=== PATIENT | female | born 1945 | race Caucasian/White ===

== ENCOUNTER 2022-07-30 17:13 | Emergency (ER) | payer MEDICARE, SELFPAY ==
[2022-07-30 17:28] VITALS: BP 110/66; PULSE 69; RESP 20; TEMP 36.9; BMI 23.4
--- NOTE | 2022-07-30 19:12 | CRLHL7_ITS ---
For Patients: As a result of the Century Cures Act, medical imaging exams and procedure reports are released immediately into your electronic medical record. You may view this report before your referring provider. If you have questions, please contact your health care provider. Indication: Injury of left ankle. Technique: Left ankle 3 views. Comparison: None. Findings: Bones: No acute fracture or aggressive osseous lesion. Alignment is normal. Tiny plantar and posterior calcaneal enthesophytes. Joint spaces: Unremarkable. Soft tissues: Scattered vascular calcifications. Impression: No evidence of an acute bony abnormality. Dictated by Ángel Rodriguez MD @ 07/30/2022 7:34:49 PM (Electronically Signed)
--- NOTE | 2022-07-30 19:12 | CRLHL7_ITS ---
For Patients: As a result of the Century Cures Act, medical imaging exams and procedure reports are released immediately into your electronic medical record. You may view this report before your referring provider. If you have questions, please contact your health care provider. Indication: Injury and pain. Technique: Left knee 3 views Comparison: None Findings: Bones: No acute fracture or aggressive osseous lesion. Alignment is normal. Joint spaces: Mild media and [id number] patellofemoral compartment degenerative changes. No joint effusion. Soft tissues: Scattered vascular calcifications. Impression: No evidence of an acute bony abnormality. Medial and patellofemoral compartment osteoarthritis. Dictated by Ángel Rodriguez MD @ 07/30/2022 7:36:36 PM (Electronically Signed)
--- NOTE | 2022-07-30 19:13 | ED_ITS ---
HPI - Extremity Injury (Lower) General Chief Complaint: Extremity Pain/Injury, Lower Stated Complaint: Injured Left ankle, can't walk on it Time Seen by Provider: 07/30/22 17:32 History of Present Illness HPI Narrative: This 76-year-old female comes in with an injury to her left lower extremity. She states that she was hurrying through a door with wood floors below. There was a threshold at the transition into the next room. She tripped over this and landed on her left knee. She complains of pain in her left knee and her left ankle. She did not have any other injury. She has had her left hip replaced. She is able to raise her left leg off of the bed. There is no obvious sign of deformity but there is some mild diffuse swelling in both of these joints. Related Data Previous Rx's Medication Instructions Recorded Crutches- Adult #1 ea 07/30/22 Allergies Allergy/AdvReac Type Severity Reaction Status Date / Time morphine Allergy Verified 07/30/22 17:27 nickel Allergy Verified 07/30/22 17:28 tramadol Allergy Verified 07/30/22 17:27 narcotics Allergy Uncoded 07/30/22 17:27 Review of Systems Status of ROS: Reports: 10 or more systems reviewed and unremarkable except as noted in History and below Narrative: Constitutional: No fevers, no weight gain or loss. Eyes: No discharge. No vision changes. HENT: No congestion, no sore throat, no ear pain. Cardiovascular: No chest pain, no palpitations. Respiratory: No shortness of breath, no wheezes, no cough. Gastrointestinal: No abdominal pain, no vomiting, no diarrhea. Genitourinary: No dysuria, no hematuria. Musculoskeletal: Left knee and ankle injury as described above. Skin: No rashes, no pruritis. Neurological: No dizziness, weakness, sensory change, speech change. Endo/Heme/Allergies: No bruising or bleeding. No polydipsia. Pysch: no suicidality, no anxiety, no insomnia. All other systems reviewed and are negative. PFSH PFS Social History Smoking Status: Never smoker Do you use any of these nicotine containing products: None Second hand tobacco smoke exposure: No How often do you have a drink containing alcohol: monthly or less How many standard drinks containing alcohol do you have on a typical day: 1 or 2 How often do you have six or more drinks on one occasion: Never AUDIT-C Alcohol total score: 1 Non-prescribed substance use: denies use service: No Exam Narrative: Exam Narrative: Constitutional: Well-developed, well-nourished, no acute distress. HEENT: Normocephalic, atraumatic. Neck: Normal range of motion. Nontender. Supple. Heart: Intact distal pulses. Lungs: No chest discomfort. No wheezes, rhonchi, or rales. Abdomen: Nontender. Back: Normal range of motion. Extremities: Diffuse swelling of the left knee which may be a mild effusion. There is no obvious deformity of the left knee or ankle joints. The left ankle has mild diffuse tenderness with no obvious swelling or deformity. Both joints are not showing any sign of instability. Skin: Intact. No rash. Warm. No erythema or pallor. Neurologic: No altered sensation. No weakness. Alert and oriented. Psychiatric: No suicidality. No anxiety or depression. No insomnia. Nursing notes and vitals signs are reviewed. Const: Vital Signs, click to edit/add: Vital Signs - 24 hr 07/30/22 17:28 Temperature 98.5 F Pulse Rate [Pulse Oximeter] 69 Respiratory Rate 20 Blood Pressure [Ri ght Upper Arm] 110/66 Oxygen Delivery Me thod Room Air Course Vital Signs Vital signs: Initial Vital Signs Temperature 98.5 F 07/30/22 17:28 Temperature Source Temporal Artery Scan 07/30/22 17:28 Pulse Rate 69 07/30/22 17:28 Pulse Rhythm 07/30/22 17:28 Respiratory Rate 20 07/30/22 17:28 Blood Pressure 110/66 07/30/22 17:28 Blood Pressure Mean 80 07/30/22 17:28 Blood Pressure Position Sitting 07/30/22 17:28 Oxygen Delivery Method 07/30/22 17:28 Vital Signs Temperature 98.5 F 07/30/22 17:28 Pulse Rate 69 07/30/22 17:28 Respiratory Rate 20 07/30/22 17:28 Blood Pressure 110/66 07/30/22 17:28 Oxygen Delivery Method 07/30/22 17:28 Temperature 98.5 F 07/30/22 17:28 Pulse Rate 69 07/30/22 17:28 Respiratory Rate 20 07/30/22 17:28 Blood Pressure 110/66 07/30/22 17:28 Oxygen Delivery Method 07/30/22 17:28 MDM - Extremity Injury (Lower) MDM Narrative Medical decision making narrative: This patient comes in for evaluation of an injury to her left knee and ankle as described above. X-ray images of both of these joints show no acute findings of fracture or dislocation. She does have swelling and each of these joints that is rather mild. She is able to raise her leg off of the bed. She did receive a pair of crutches to assist in increasing use of her left leg as tolerated. She also received a prescription for Toradol. Imaging Data XR L Ankle: Radiologist's impression: No evidence of an acute bony abnormality. XR L Knee: Radiologist's impression: No evidence of an acute bony abnormality. Medial and patellofemoral compartment osteoarthritis. Discharge Plan Discharge Clinical Impression: Ankle sprain and strain, Contusion of knee, left Patient Disposition: Home, Self-Care Condition: Stable Additional Instructions: Use crutches and take medication as needed and directed. Increase activity as tolerated. Follow up with MD or return if worsening. Prescriptions: New (DME) Crutches- Adult Misc See Rx Instructions .ROUTE .MEDSULY Qty: 1 0RF Rx Instructions: As directed Follow Up/Referrals: Provider,Not a Local [Primary Care Provider] - Stand Alone Forms: Eyelation Info Instructions
--- OUTSIDE RECORDS SUMMARY | 2022-07-30 19:21 | XMS_ITS | Encounter Summary ---
:1945 Author Organization [facility] Address [address] [place] [address]. [place] [address] Care Team Providers Name Role Phone Carlota Landeros MD Unavailable Michelle Montana RN Unavailable Anh Costa DIRECTOR GLOBAL SALES KINDERGARTEN TEACHER ASSISTANT Unavailable Unavailable Martinez Galicia MD Unavailable Sabino Romano DPM Unavailable Mehreen Johnston MD PhD Unavailable [phone] LogMargot sadler MD Unavailable Margot Branham MD Unavailable Margot Branham MD Primary Care Provider Alonso Tejeda MD Unavailable Reason for Visit Reason Onset Date Comments Pain 07/16/2022 L breast pain Encounter Details Date Type Department Care Team Description 07/16/2022 Telephone [facility] Margot Branham MD Pain (L breast pain) Internal Medicine [address] [place], [place] 4th [address] [address] [place], [place] [phone] (Wo rk) [id number] [phone] Social History Tobacco Use Types Packs/Day Years Used Date Smoking Tobacco: Never Smokeless Tobacco: Never Alcohol Use Standard Drinks/Week Comments Yes 0 (1 standard drink = 0.6 oz pure alcoho l) wine few times/wk Sex Assigned at Date Recorded Female 12/20/2018 4:10 PM CDT COVID-19 Exposure Response Date Recorded In the last 10 days, have you been in contact Unable to asse ss 07/15/2022 4:34 PM CDT with someone who was confirmed or suspected to have Coronavirus/COVID-19? documented as of this encounter Miscellaneous Notes Telephone Encounter - Lisa José RN - 07/16/2022 4:06 PM CDT RN left voice message letting patient know that Dr. Branham is out the clinic this week and next, but that Dr. Tejeda has an opening tomorrow 07/17/22 @ 2 PM and she can call back to make that appt. Patient has seen Dr. Tejeda in the past. OK to use the spot tomorrow for this patient's appt for left breast pain if/when she calls back. Lisa José RN on 07/16/2022 at 4:09 PM Telephone Encounter - Latricia Low - 07/16/2022 2:47 PM CDT [facility] [place] [facility] Phone Message May a detailed message be left on voicemail: yes Reason for Call: Patient is calling to let Dr Manriquez know that she is experiencing L breast pain. Please call to discuss further. Patient doesn't want to see anyone other than Dr Manriquez. Action Taken: Message routed to: [facility] Travel Screening: Not Applicable documented in this encounter Plan of Treatment Upcoming Encounters Date Type Specialty Care Team Description 09/10/2022 Office Visit Internal Medicine Margot Branham MD [address] [place] [address] [phone] (Wo rk) documented as of this encounter Visit Diagnoses Not on filedocumented in this encounter Additional Health Concerns Assessment Noted Time PHQ-9 Depression Total Score: 0 11/22/2019 10:49 AM CS T documented as of this encounter Care Teams Central Sterile Supply Technician Relationship Specialty Start Date End Date Margot Branham MD PCP - General Internal Medicine 10/28/[address] [place] [address] [phone] Carlota Landeros MD MD Urology 04/10/[address] [place], [place] [address] Michelle Montana, MODESTA Registered Nurse Urology 05/07/17 Anh Costa APRN KINDERGARTEN TEACHER ASSISTANT Nurse Practitioner Nurse Practitioner 10/07 Martinez Galicia MD MD Ophthalmology 04/18/[address] [place] [address] [phone] Sabino Romano DPM MD Podiatry 08/11/[address] [phone] Mehreen Johnston MD PhD MD Family Practice 11/15/[address] [place] [address] [phone] Margot Branham MD MD Internal Medicine 04/17/[address] [place] [address] [phone] Margot Branham MD Assigned PCP 09/15/[address] [place] [address] [phone] Alonso Tejeda MD MD Internal Medicine 06/19/[address] [place] [phone] documented as of this encounter
--- OUTSIDE RECORDS SUMMARY | 2022-07-30 19:21 | XMS_ITS | Encounter Summary ---
:1945 Author Organization [facility] Address [address] [place] [address]. [place] [address] Care Team Providers Name Role Phone Carlota Landeros MD Unavailable Michelle Montana RN Unavailable Anh Costa ROENTGENOLOGY TEACHER GASOLINE ENGINE ASSEMBLER Unavailable Unavailable Martinez Galicia MD Unavailable Sabino Romano DPM Unavailable Mehreen Johnston MD PhD Unavailable [phone] LogMargot sadler MD Unavailable Margot Branham MD Unavailable Margot Branham MD Primary Care Provider Encounter Details Date Type Department Care Team Description 01/06/2022 Travel Social History Tobacco Use Types Packs/Day Years Used Date Smoking Tobacco: Never Smokeless Tobacco: Never Alcohol Use Standard Drinks/Week Comments Yes 0 (1 standard drink = 0.6 oz pure alcoho l) wine few times/wk Sex Assigned at Date Recorded Female 12/20/2018 4:10 PM CDT COVID-19 Exposure Response Date Recorded In the last month, have you been in contact with No / Unsure 01/06/2022 3:51 PM CDT someone who was confirmed or suspected to have Coronavirus / COVID-19? documented as of this encounter Plan of Treatment Upcoming Encounters Date Type Specialty Care Team Description 09/10/2022 Office Visit Internal Medicine LogeaMargot man MD [address] [place] [phone] (Wo rk) documented as of this encounter Visit Diagnoses Not on filedocumented in this encounter Additional Health Concerns Assessment Noted Time PHQ-9 Depression Total Score: 0 11/22/2019 10:49 AM CS T documented as of this encounter Care Teams Straightening Roll Operator Relationship Specialty Start Date End Date Margot Branham MD PCP - General Internal Medicine 10/28/[address] [place] [phone] Carolta Landeros MD MD Urology 04/10/[id number] [place] [address] Michelle Montana, RN Registered Nurse Urology 05/07/17 Anh Costa APRN GASOLINE ENGINE ASSEMBLER Nurse Practitioner Nurse Practitioner 10/07 Martinez Galicia MD MD Ophthalmology 04/18/18 [address] [place] [address] Sabino Romano DPM MD Podiatry 08/11/[address] [phone] Mehreen Johnston MD PhD MD Family Practice 11/15/[address] [place] [phone] Margot Branham MD MD Internal Medicine 04/17/[address] [place] [phone] Margot Branham MD Assigned PCP 09/15/[address] [place] [phone] documented as of this encounter
--- OUTSIDE RECORDS SUMMARY | 2022-07-30 19:21 | XMS_ITS | Encounter Summary ---
:1945 Author Organization [facility] Address [address] [place] [address]. [place] [address] Care Team Providers Name Role Phone Carlota Landeros MD Unavailable Michelle Montana RN Unavailable Anh Costa COMPUTER SYSTEM SPECIALIST WAREHOUSE GUARD Unavailable Unavailable Martinez Galicia MD Unavailable Sabino Romano DPM Unavailable Mehreen Johnston MD PhD Unavailable [phone] Margot Branham MD Unavailable Margot Branham MD Unavailable Margot Branham MD Primary Care Provider Encounter Details Date Type Department Care Team Description 04/20/2022 Travel Social History Tobacco Use Types Packs/Day Years Used Date Smoking Tobacco: Never Smokeless Tobacco: Never Alcohol Use Standard Drinks/Week Comments Yes 0 (1 standard drink = 0.6 oz pure alcoho l) wine few times/wk Sex Assigned at Date Recorded Female 12/20/2018 4:10 PM CDT COVID-19 Exposure Response Date Recorded In the last 10 days, have you been in contact with No / Unsu re 04/20/2022 10:52 AM CDT someone who was confirmed or suspected to have Coronavirus/COVID-19? documented as of this encounter Plan of Treatment Upcoming Encounters Date Type Specialty Care Team Description 09/10/2022 Office Visit Internal Medicine LogeaMargot man MD [address] [place] [phone] (Wo rk) documented as of this encounter Visit Diagnoses Not on filedocumented in this encounter Additional Health Concerns Assessment Noted Time PHQ-9 Depression Total Score: 0 11/22/2019 10:49 AM CS T documented as of this encounter Care Teams End Touching Machine Operator Relationship Specialty Start Date End Date Margot Branham MD PCP - General Internal Medicine 10/28/[address] [place] [phone] Carlota Landeros MD MD Urology 04/10/[address] [place] [address] Michelle Montana, RN Registered Nurse Urology 05/07/17 Anh Costa APRN WAREHOUSE GUARD Nurse Practitioner Nurse Practitioner 10/07 Martinez Galicia MD MD Ophthalmology 04/18/18 [address] [place] [address] Sabino Romano DPM MD Podiatry 08/11/[address] [phone] Mehreen Johnston MD PhD MD Family Practice 11/15/[address] [place] [phone] Margot Branham MD MD Internal Medicine 04/17/[address] [place] [phone] Margot Branham MD Assigned PCP 09/15/[address] [place] [phone] documented as of this encounter
--- OUTSIDE RECORDS SUMMARY | 2022-07-30 19:21 | XMS_ITS | Encounter Summary ---
:1945 Author Organization [facility] Address [address] [place] [address]. [place] [address] Care Team Providers Name Role Phone Carlota Landeros MD Unavailable Michelle Montana RN Unavailable nAh Costa ALUMINUM POLISHER PURCHASING MANAGER Unavailable Unavailable Martinez Galicia MD Unavailable Sabino Romano DPM Unavailable Mehreen Johnston MD PhD Unavailable [phone] LogeaMargot man MD Unavailable LogeaMargot man MD Unavailable LogMargot sadler MD Primary Care Provider Reason for Visit Reason Comments Urgent Care Pt in clinic to have eval fo r dysuria and frequency. Dysuria Encounter Details Date Type Department Care Team Description 01/06/2022 Office Visit [facility] Fela Gomez, Dysuria (Primary Dx); Urgent Care Reed OLIVEROS Acute cystitis without hematuria [address] [facility] 110 [place] [address] [id number] Social History Tobacco Use Types Packs/Day Years [...] / COVID-19? documented as of this encounter Last Filed Vital Signs Vital Sign Reading Time Taken Comments Blood Pressure 118/72 01/06/2022 4:04 PM CDT Pulse 67 01/06/2022 4:04 PM CDT Temperature 36.8 ??C (98.2 ??F) 01/06/2022 4:04 PM CDT Respiratory Rate - - Oxygen Saturation 99% 01/06/2022 4:04 PM CDT Inhaled Oxygen Concentration - - Weight 65.8 kg (145 lb) 01/06/2022 4:04 PM CDT Height 168.9 cm (5' 6.5) 01/06/2022 4:04 PM CDT Body Mass Index 23.05 01/06/2022 4:04 PM CDT documented in this encounter Progress Notes Fela Gomez MD - 01/06/2022 3:55 PM CDT Chief Complaint Patient presents with ??? Urgent Care Pt in clinic to have eval for dysuria and frequency. ??? Dysuria Initial differential diagnosis included but was not restricted to Differential Diagnosis: UTI: UTI, Dysuria, Pyelonephritis, Urethritis and Vaginitis Medical Decision Making: ASSESMENT AND PLAN Yamileth was seen today for urgent care and dysuria. Diagnoses and all orders for this visit: Dysuria - UA macro with reflex to Microscopic and Culture - Clinc Collect - Urine Microscopic Exam - Urine Culture Acute cystitis without hematuria - cephALEXin (KEFLEX) 500 MG capsule; Take 1 capsule (500 mg) by mouth 2 times daily for 7 days Push more Fluids Routine discharge counseling was given to the patient and the patient understands that worsening, changing or persistent symptoms should prompt an immediate call or follow up with their primary physician or the emergency department. The importance of appropriate follow up was also discussed with the patient. I have reviewed the nursing notes. Review of the result(s) of each unique test - Results for orders placed or performed in visit on 01/06/22 UA macro with reflex to Microscopic and Culture - Clinc Collect Status: Abnormal Specimen: Urine, Clean Catch Result Value Ref Range Color Urine Yellow Colorless, Straw, Light Yellow, Yellow Appearance Urine Clear Clear Glucose Urine Negative Negative mg/dL Bilirubin Urine Negative Negative Ketones Urine Negative Negative mg/dL Specific Allen Urine 1.025 1.003 - 1.035 Blood Urine Negative Negative pH Urine 5.5 5.0 - 7.0 Protein Albumin Urine Negative Negative mg/dL Urobilinogen Urine 0.2 0.2, 1.0 E.U./dL Nitrite Urine Positive (A) Negative Leukocyte Esterase Urine Negative Negative Urine Microscopic Exam Status: Abnormal Result Value Ref Range Bacteria Urine Few (A) None Seen /HPF RBC Urine 0-2 0-2 /HPF /HPF WBC Urine 0-5 0-5 /HPF /HPF Squamous Epithelials Urine Few (A) None Seen /LPF X-Ray was not done. Time spent on the date of the encounter doing chart review, review of test results, interpretation of tests, patient visit and documentation see orders in Epic Pt verbalized and agreed with the plan and is aware of the worsening symptoms for which would need to follow up . Pt was stable during time of discharge from the clinic SUBJECTIVE Yamileth Ramona Sheikh is a 76 year old female presenting with a chief complaint of Chief Complaint Patient presents with ??? Urgent Care Pt in clinic to have eval for dysuria and frequency. ??? Dysuria UTI Onset of symptoms was 2day(s). Course of illness is worsening Severity moderate Current and associated symptoms dysuria and frequency Treatment and measures tried Uristat (Pyridium) Predisposing factors include none Patient denies rigors, flank pain, temperature > 101 degrees F. and vomiting Past Medical History: Diagnosis Date ??? Benign head tremor many years ??? Deviated nasal septum Dr [facility] ??? Elevated brain natriuretic peptide (BNP) level 2009 296 ??? Elevated glucose 06/23/2016 [facility] ??? Fibroid uterus ??? H/O: varicose veins ??? Hyperlipidemia ASCVD risk 8.1%, declines statin ??? Hypertension ??? Osteoarthritis bilateral hip and knees ??? Osteopenia ??? PONV (postoperative nausea and vomiting) ??? 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 Urinary problem 2010 has a bladder implant, interstim ??? Vitamin D deficiency Current Outpatient Medications Medication Sig Dispense Refill ??? alendronate (FOSAMAX) 70 MG tablet Take 1 tablet (70 mg) by mouth every 7 days 12 tablet 3 ??? amoxicillin (AMOXIL) 500 MG capsule Take 2 capsules by mouth as needed 1 hour before dental procedures ??? calcium citrate (CITRACAL) 950 (200 Ca) MG tablet Take 1 tablet by mouth 2 times daily ??? cephALEXin (KEFLEX) 500 MG capsule Take 1 capsule (500 mg) by mouth 2 times daily for 7 days 14 capsule 0 ??? cholecalciferol (VITAMIN D3) 1000 UNIT tablet Take 2 tablets by mouth daily. ??? Coenzyme Q10 (COQ-10) 100 MG CAPS Take 100 mg by mouth daily ??? estradiol (ESTRACE) 0.1 MG/GM vaginal cream APPLY A SMALL AMOUNT EXTERNALLY TO VULVA TWO TIMES WEEKLY. 42.5 g 0 ??? estradiol (ESTRING) [address] 1 RING VAGINALLY EVERY 3 MONTHS. 1 each 3 ??? glucosamine-chondroitin 500-400 MG CAPS per capsule Take 1 capsule by mouth daily ??? hydrocortisone, Perianal, (PROCTO-MED HC) 2.5 % cream PLACE RECTALLY 2 TIMES DAILY DIRECTED 30 g 11 ??? irbesartan (AVAPRO) 150 MG tablet Take 1 tablet (150 mg) by mouth daily 90 tablet 3 ??? LYSINE PO Take 1 tablet by mouth daily ??? magnesium 100 MG CAPS Take 150 mg by mouth ??? nystatin (MYCOSTATIN) 745924 UNIT/GM external cream Apply topically 2 times daily ??? omega 3 1000 MG CAPS Take 1,200 mg by mouth ??? OTHER MEDICAL SUPPLIES ROCÍO stockings knee length USE DIRECTED . ??? polyethylene glycol (MIRALAX) 17 g packet Take 1 packet by mouth daily ??? rosuvastatin (CRESTOR) 5 MG tablet Take 1 tablet (5 mg) by mouth daily 90 tablet 3 ??? valACYclovir (VALTREX) 1000 mg tablet Take 1 tablet (1,000 mg) by mouth 2 times daily For one day at start of outbreak 10 tablet 1 Social History Tobacco Use ??? Smoking status: Never Smoker ??? Smokeless tobacco: Never Used Substance Use Topics ??? Alcohol use: Yes Comment: wine few times/wk Family History Problem Relation Age of Onset ??? Cancer - colorectal Mother colon polyps, age 93 ??? Hypertension Mother ??? Colon Polyps Mother ??? Colon Cancer Mother ??? Cardiovascular Father CHF age 79, hx of PE and HTN ??? Hypertension Father ??? Colon Polyps Father ??? Other - See Comments Brother MVA ??? Aneurysm Sister 40 brain ??? No Known Problems Sister ??? Parkinsonism Sister Hx TBI, MVA ??? Glaucoma Sister 55 Brought on by eye trauma. ??? Cancer Sister uterine cancer ??? Other Cancer Sister ??? Cancer Maternal Grandmother 84 of pancreatic cancer ??? Hypertension Maternal Grandmother ??? Myocardial Infarction Maternal Grandfather 82 of [place] ??? Hypertension Maternal Grandfather ??? Cardiovascular Paternal Grandmother age 65 of heart problems ??? Hypertension Paternal Grandmother ??? Pneumonia Paternal Grandfather age 70 after flu ??? No Known Problems Son ??? Colon Cancer Cousin ??? Colon Cancer Paternal Uncle ??? Colon Cancer Paternal Aunt ??? Colon Cancer Maternal Great-Grandfather ??? Macular Degeneration No family hx of ROS: 10 point ROS of systems including Constitutional, Eyes, Respiratory, Cardiovascular, Gastroenterology,Integumentary, Muscularskeletal, Psychiatric ,neurological were all negative except for pertinent positives noted in my HPI OBJECTIVE: BP 118/72 Pulse 67 Temp 98.2 ??F (36.8 ??C) (Temporal) Ht 1.689 m (5' 6.5) Wt 65.8 kg (145 lb) SpO2 99% BMI 23.05 kg/m?? GENERAL APPEARANCE: healthy, alert and no distress EYES: EOMI, PERRL, conjunctiva clear mouth without ulcers, erythema or lesions , oral mucosa moist CV: regular rates and rhythm, normal S1 S2, no murmur noted ABDOMEN: soft, nontender, no HSM or masses and bowel sounds normal PSYCH: mentation appears normal Physical Exam (Note was completed, in part, with [email or web address] voice-recognition software. Documentation reviewed, but some grammatical, spelling, and word errors may remain.) Fela Gomez MD documented in this encounter Plan of Treatment Upcoming Encounters Date Type Specialty Care Team Description 09/10/2022 Office Visit Internal Medicine Logeais, MD Margot [address] [place] [address] [place], [place] [phone] (Wo rk) documented as of this encounter Procedures Procedure Name Priority Date/Time Associated Comments Diagnosis UA MACROSCOPIC WITH Routine 01/06/2022 4:05 PM Dysuria Re sults for this REFLEX TO MICRO AND CDT procedur e are in CULTURE the results section. URINE MICROSCOPIC Routine 01/06/2022 4:05 PM Dysuria Resu lts for this EXAM CDT procedure are i n the results section. URINE CULTURE Routine 01/06/2022 4:05 PM Dysuria Results for this CDT procedure are i n the results section. documented in this encounter Results Urine Culture (01/06/2022 4:05 PM CDT) P athologist Signature Culture No Growth JAKUB 01/08/2022 [facility] 11:25 AM CDT LABORATORY Specimen Anatomical Collection Method Collection Time Receive d Time (Source) Location / / Volume Laterality Urine URINE SPECIMEN Non-blood 01/06/2022 4:05 PM 022 4:19 OBTAINED BY CLEAN Collection / CDT PM CDT CATCH PROCEDURE / Unknown Unknown Mae Wilkinson NP LAB - MICRO GENERAL ORDERABL ES Performing Organization Address City/State/ZIP Code Phon e Number [facility] LABORATORY [facility] [place] [address] Diag. Lab [address] [facility], Room D297 (ABNORMAL) Urine Microscopic Exam (01/06/2022 4:05 PM CDT) Patholo gist Method Time Signature Bacteria Urine Few (A) None Seen JAKUB 01/06/2022 [facility] /HPF 4:26 PM CDT RBC Urine 0-2 0-2 /HPF JAKUB 01/06/2022 [facility] /HPF 4:26 PM CDT WBC Urine 0-5 0-5 /HPF JAKUB 01/06/2022 [facility] /HPF 4:26 PM CDT Squamous Few (A) None Seen JAKUB 01/06/2022 [facility] Epithelials /LPF 4:26 PM CDT Urine Specimen Anatomical Collection Method Collection Time Receive d Time (Source) Location / / Volume Laterality Urine URINE SPECIMEN Non-blood 01/06/2022 4:05 PM 022 4:13 OBTAINED BY CLEAN Collection / CDT PM CDT CATCH PROCEDURE / Unknown Unknown Mae Wilkinson NP LAB - URINE ORDERABLES Performing Organization Address City/State/ZIP Code Phon [place] [address] [phone] [facility], 1st floor of clinic) [place] [address], [facility] [facility]no [facility] number, 1st floor of clinic) (ABNORMAL) UA macro with reflex to Microscopic and Culture - Clinc Collect (01/06/2022 4:05 PM CDT) [facility] Method Time Signature Color Urine Yellow Colorless, 01/06/2022 [facility] Straw, 4:19 PM CDT Light Yellow, Yellow Appearance Urine Clear Clear 01/06/2022 [facility] Y 4:19 PM CDT Glucose Urine Negative Negative 01/06/2022 [facility] mg/dL 4:19 PM CDT Bilirubin Urine Negative Negative 01/06/2022 [facility] 4:19 PM CDT Ketones Urine Negative Negative 01/06/2022 [facility] mg/dL 4:19 PM CDT Specific Allen 1.025 1.003 - 01/06/2022 [facility] Y Urine 1.035 4:19 PM CDT Blood Urine Negative Negative 01/06/2022 [facility] 4:19 PM CDT pH Urine 5.5 5.0 - 7.0 01/06/2022 [facility] 4:19 PM CDT Protein Albumin Negative Negative 01/06/2022 [facility] Urine mg/dL 4:19 PM CDT Urobilinogen 0.2 0.2, 1.0 01/06/2022 [facility] Urine E.U./dL 4:19 PM CDT Nitrite Urine Positive Negative 01/06/2022 [facility] (A) 4:19 PM CDT Leukocyte Negative Negative 01/06/2022 [facility] Esterase Urine 4:19 PM CDT Specimen Anatomical Collection Method Collection Time Receive d Time (Source) Location / / Volume Laterality Urine URINE SPECIMEN Non-blood 01/06/2022 4:05 PM 022 4:13 OBTAINED BY CLEAN Collection / CDT PM CDT CATCH PROCEDURE / Unknown Unknown Mae Wilkinson NP LAB - URINE ORDERABLES Performing Organization Address City/State/ZIP Code [place] [phone] [facility] [address] [place] (no room number, 1st floor of clinic) [place] [address], [facility] Lab [address] [place] [facility] (no room number, 1st floor of clinic) documented in this encounter Visit Diagnoses Diagnosis Dysuria - Primary Acute cystitis without hematuria Acute cystitis documented in this encounter Additional Health Concerns Assessment Noted Time PHQ-9 Depression Total Score: 0 11/22/2019 10:49 AM CS T documented as of this encounter Care Teams Broker Associate Relationship Specialty Start Date End Date Margot Branham MD PCP - General Internal Medicine 10/28/[address] [place] [address] [phone] Carlota Landeros MD MD Urology 04/10/[address] [place], [place] [address] Michelle Montana, MODESTA Registered Nurse Urology 05/07/17 Anh Costa APRN PURCHASING MANAGER Nurse Practitioner Nurse Practitioner 10/07 Martinez Galicia MD MD Ophthalmology 04/18/18 [address] [place], [place] 801385 Sabino Romano DPM MD Podiatry 08/11/[address] [place] [phone] Mehreen Johnston MD PhD MD Family Practice 11/15/[address] [place] [address] [phone] Margot Branham MD MD Internal Medicine 04/17/[address] [place] [address] [phone] Margot Branham MD Assigned PCP 09/15/[address] [place] [address] [phone] documented as of this encounter
--- OUTSIDE RECORDS SUMMARY | 2022-07-30 19:21 | XMS_ITS | Encounter Summary ---
:1945 Author Organization [facility] Address [address] [place] [address]. [place] [address] Care Team Providers Name Role Phone Carlota Landeros MD Unavailable Michelle Montana RN Unavailable Anh Costa ECOTHERAPIST COMPUTER LABORATORY TECHNICIAN Unavailable Unavailable Martinez Galicia MD Unavailable Sabino Romano DPM Unavailable Mehreen Johnston MD PhD Unavailable [phone] LogeaMargot man MD Unavailable LogMargot sadler MD Unavailable LogMargot sadler MD Primary Care Provider Encounter Details Date Type Department Care Team Description 10/30/2021 Lab [facility] Lab Hyperl ipidemia LDL goal <100 [place] [phone] Social History Tobacco Use Types Packs/Day Years Used Date Smoking Tobacco: Never Smokeless Tobacco: Never Alcohol Use Standard Drinks/Week Comments Yes 0 (1 standard drink = 0.6 oz pure alcoho l) wine few times/wk Sex Assigned at Date Recorded Female 12/20/2018 4:10 PM CDT COVID-19 Exposure Response Date Recorded In the last month, have you been in contact with No / Unsure 10/30/2021 8:37 AM COLLET MAKER someone who was confirmed or suspected to have Coronavirus / COVID-19? documented as of this encounter Plan of Treatment Upcoming Encounters Date Type Specialty Care Team Description 09/10/2022 Office Visit Internal Medicine LogMargot sadler MD [address] [address] (Wo rk) documented as of this encounter Procedures Procedure Name Priority Date/Time Associated Diagnosis Comme nts LIPID REFLEX TO Routine 10/30/2021 10:04 Hyperlipidemia LDL go al Results for this DIRECT LDL PANEL AM COLLET MAKER <100 procedure a re in the results section. documented in this encounter Results Lipid panel reflex to direct LDL Fasting (10/30/2021 10:04 AM COLLET MAKER) [facility] gist Method Time Signature Cholesterol 159 <200 mg/dL 10/30/2021 [facility] 10:30 AM COLLET MAKER LABORATORY - CORE LAB Triglycerides 89 <150 mg/dL 10/30/2021 [facility] 10:30 AM COLLET MAKER LABORATORY - CORE LAB Direct Measure HDL 83 >=50 mg/dL 10/30/2021 [facility] 10:30 AM COLLET MAKER LABORATORY - CORE LAB LDL Cholesterol 58 <=100 10/30/2021 [facility] Calculated mg/dL 10:30 AM COLLET MAKER LABORATORY - CORE LAB Non HDL 76 <130 mg/dL 10/30/2021 [facility] Cholesterol 10:30 AM COLLET MAKER LABORATORY - CORE LAB Patient Fasting > Yes 10/30/2021 [facility] 8hrs? 10:30 AM COLLET MAKER LABORATORY - CORE LAB Specimen Anatomical Collection Method / Collection Time Recei yenny Time (Source) Location / Volume Laterality Blood STRUCTURE OF LEFT Venipuncture / 10/30/2021 10:04 10/05 UPPER LIMB / Unknown AM COLLET MAKER 10:04 AM COLLET MAKER Unknown Narrative [facility] LABORATORY - CORE LAB - 10/30/2021 10:30 AM COLLET MAKER Cholesterol Desirable: ??<200 mg/dL Triglycerides Normal: ??Less than 150 mg/dL Borderline High: ??150-199 mg/dL High: ??200-499 mg/dL Very High: ??Greater than or equal to 50 0 mg/dL Direct Measure HDL Female: ??Greater than or equal to 50 mg /dL Male: ??Greater than or equal to 40 mg/d L LDL Cholesterol Desirable: ??<100mg/dL Above Desirable: ??100-129 mg/dL Borderline High: ??130-159 mg/dL High: ??160-189 mg/dL Very High: ??>= 190 mg/dL Non HDL Cholesterol Desirable: ??130 mg/dL Above Desirable: ??130-159 mg/dL Borderline High: ??160-189 mg/dL High: ??190-219 mg/dL Very High: ??Greater than or equal to 22 0 mg/dL Margot Branham MD LAB - BLOOD ORDERABLES Performing Organization Address City/State/ZIP Code Phon e Number [facility] LABORATORY - CORE LAB [facility] [place] [address] Lab Core Lab [facility] LABORATORY - CORE LAB [place], [place] [address] Clinics [facility] [place] - [address] Floor Lab Core Lab documented in this encounter Visit Diagnoses Diagnosis Hyperlipidemia LDL goal <100 Other and unspecified hyperlipidemia documented in this encounter Additional Health Concerns Assessment Noted Time PHQ-9 Depression Total Score: 0 11/22/2019 10:49 AM CS T documented as of this encounter Care Teams Sheriffs Relationship Specialty Start Date End Date Margot Branham MD PCP - General Internal Medicine 10/28/[address] [place] [address] [phone] Carlota Landeros MD MD Urology 04/10/[address] [place], [place] [address] Michelle Montana RN Registered Nurse Urology 05/07/17 Anh Costa APRN COMPUTER LABORATORY TECHNICIAN Nurse Practitioner Nurse Practitioner 10/07 Martinez Galicia MD MD Ophthalmology 04/18/18 420 [place], [place] [phone] Sabino Romano DPM MD Podiatry 08/11/[address] [phone] Mehreen Johnston MD PhD MD Family Practice 11/15/[address] [place] [address] [phone] Margot Branham MD MD Internal Medicine 04/17/[address] [place] [address] [phone] Margot Branham MD Assigned PCP 09/15/[address] [place] [address] [phone] documented as of this encounter
--- OUTSIDE RECORDS SUMMARY | 2022-07-30 19:21 | XMS_ITS | Encounter Summary ---
:1945 Author Organization [facility] Address [address] [place] [address]. [place] [address] Care Team Providers Name Role Phone Carlota Landeros MD Unavailable Michelle Montana RN Unavailable Anh Costa FOOD ADVISER CARDIAC CARE NURSE Unavailable Unavailable Martinez Galicia MD Unavailable Sabino Romano DPM Unavailable Mehreen Johnston MD PhD Unavailable [phone] LogeaMargot man MD Unavailable LogMargot sadler MD Unavailable LogMargot sadler MD Primary Care Provider Alonso Tejeda MD Unavailable Encounter Details Date Type Department Care Team Description 06/19/2022 Telephone [facility] Margot Branham MD Internal Medicine [address] [place] [address] [place] [address] 4th Floor [place], [place] [phone] Social History Tobacco Use Types Packs/Day [...] in contact with No / Unsu re 06/19/2022 8:44 AM CDT someone who was confirmed or suspected to have Coronavirus/COVID-19? documented as of this encounter Plan of Treatment Upcoming Encounters Date Type Specialty Care Team Description 09/10/2022 Office Visit Internal Medicine Margot Branham MD [address] [place] [address] [phone] (Wo rk) documented as of this encounter Visit Diagnoses Not on filedocumented in this encounter Additional Health Concerns Assessment Noted Time PHQ-9 Depression Total Score: 0 11/22/2019 10:49 AM CS T documented as of this encounter Care Teams Target Developer Relationship Specialty Start Date End Date Margot Branham MD PCP - General Internal Medicine 10/28/[address] [place] [address] [phone] Carlota Landeros MD MD Urology 04/10/[address] [place], [place] [phone] Michelle Montana, MODESTA Registered Nurse Urology 05/07/17 Anh Costa APRN CARDIAC CARE NURSE Nurse Practitioner Nurse Practitioner 10/07 Martinez Galicia MD MD Ophthalmology 04/18/[address] [place] [address] [phone] Sabino Romano DPM MD Podiatry 08/11/18 [facility] [address] [phone] Mehreen Johnston MD PhD MD Family Practice 11/15/[address] [place] [address] [phone] Margot Branham MD MD Internal Medicine 04/17/[address] [place] [address] Margot Branham MD Assigned PCP 09/15/[address] [place] [address] [phone] Alonso Tejead MD MD Internal Medicine 06/19/[address] [place] [address] [phone] documented as of this encounter
--- OUTSIDE RECORDS SUMMARY | 2022-07-30 19:21 | XMS_ITS | Encounter Summary ---
:1945 Author Organization [facility] Address [address] [place] [address]. [place] [address] Care Team Providers Name Role Phone Carlota Landeros MD Unavailable Michelle Montana RN Unavailable Anh Costa INSURANCE CLAIM APPROVER NITROGLYCERIN NITRATOR OPERATOR BATCH Unavailable Unavailable Martinez Galicia MD Unavailable Sabino Romano DPM Unavailable Mehreen Johnston MD PhD Unavailable [phone] Margot Branham MD Unavailable Margot Branham MD Unavailable Margot Branham MD Primary Care Provider Encounter Details Date Type Department Care Team Description 04/02/2022 Travel Social History Tobacco Use Types Packs/Day [...] been in contact Unable to asse ss 04/02/2022 4:00 PM CDT with someone who was confirmed or suspected to have Coronavirus/COVID-19? documented as of this encounter Plan of Treatment Upcoming Encounters Date Type Specialty Care Team Description 09/10/2022 Office Visit Internal Medicine LogeaMargot man MD [address] [place] [phone] (Wo rk) documented as of this encounter Visit Diagnoses Not on filedocumented in this encounter Additional Health Concerns Assessment Noted Time PHQ-9 Depression Total Score: 0 11/22/2019 10:49 AM CS T documented as of this encounter Care Teams Warehouse Selector Relationship Specialty Start Date End Date Margot Branham MD PCP - General Internal Medicine 10/28/[address] [place] [phone] Carlota Landeros MD MD Urology 04/10/[address] [place] [address] Michelle Montana, RN Registered Nurse Urology 05/07/17 Anh Costa APRN NITROGLYCERIN NITRATOR OPERATOR BATCH Nurse Practitioner Nurse Practitioner 10/07 Martinez Galicia MD MD Ophthalmology 04/18/18 [address] [place] [address] Sabino Romano DPM MD Podiatry 08/11/[address] [phone] Mehreen Johnston MD PhD MD Family Practice 11/15/[address] [place] [address] Margot Branham MD MD Internal Medicine 04/17/[address] [place] [address] Margot Branham MD Assigned PCP 09/15/[address] [place] [phone] documented as of this encounter
--- OUTSIDE RECORDS SUMMARY | 2022-07-30 19:21 | XMS_ITS | Encounter Summary ---
:1945 Author Organization [facility] Address [address] [place] [address]. [place] [address] Care Team Providers Name Role Phone Carlota Acuña MD Unavailable Michelle Montana RN Unavailable Anh Costa ELECTRONIC [employer] OFFICER ELECTRONIC PUBLICATIONS SPECIALIST Unavailable Unavailable Martinez Galicia MD Unavailable Sabino Romano DPM Unavailable Mehreen Johnston MD PhD Unavailable [phone] Margot Branham MD Unavailable Margot Branham MD Unavailable Margot Branham MD Primary Care Provider Reason for Referral Diagnostic Imaging Mammo (Routine) - Pending Review Specialty Diagnoses / Procedures Referred By Contact Refer red To Contact Diagnoses Encounter for screening mammogram for breast cancer aMrgot Branham MD Procedures Mammogram, screening w billy (3D) [address] 72 5 Referral ID Status Reason Start Date Expiration Date Visits V isits Requested Authorized [id number] Pending 10/30/2021 10/30/2022 1 1 Review MAN Reason for Visit Reason Comments Physical Annual Visit Encounter Details Date Type Department Care Team Description 10/30/2021 Office Visit [facility], Margot, Encounte r for screening mammogram for breast cancer (Primary Dx); Clinic Internal Atrophic vaginitis; Medicine [place] [facility] Screen for colon cancer; 909 [facility] [address] [place] Seasonal allergies; [address]th Floor [place], [place] Chronic rhinitis; [place] [address] Vaginal dryness; [id number] Recurrent cold sores; Vitamin D deficiency; [phone] Essential hyper tension; (Fax) Hyperlipidemia LDL goal <100; External hemorr hoids; Need for pneumo coccal vaccination; Age-related ost eoporosis without current pathological fracture; Encounter for Jody gonzales annual wellness exam Social History Tobacco Use Types Packs/Day Years Used Date Smoking Tobacco: Never Smokeless Tobacco: Never Tobacco Cessation: Counseling Given: No Alcohol Use Standard Drinks/Week Comments Yes 0 (1 standard drink = 0.6 oz pure alcoho l) wine few times/wk Sex Assigned at Date Recorded Female 12/20/2018 4:10 PM CDT COVID-19 Exposure Response Date Recorded In the last month, have you been in contact with No / Unsure 10/30/2021 8:37 AM HOT MAN someone who was confirmed or suspected to have Coronavirus / COVID-19? documented as of this encounter Last Filed Vital Signs Vital Sign Reading Time Taken Comments Blood Pressure 121/68 10/30/2021 8:49 AM HOT MAN Pulse 64 10/30/2021 8:49 AM HOT MAN Temperature - - Respiratory Rate 16 10/30/2021 8:49 AM HOT MAN Oxygen Saturation 99% 10/30/2021 8:49 AM HOT MAN Inhaled Oxygen Concentration - - Weight 67.4 kg (148 lb 11.2 oz) 10/30/2021 8:49 AM HOT MAN Height 169.5 cm (5' 6.75) 10/30/2021 8:49 AM HOT MAN Body Mass Index 23.46 10/30/2021 8:49 AM HOT MAN documented in this encounter Patient Instructions Patient InstructionsTaran Mata - 10/30/2021 9:00 AM CST To schedule a mammogram, please call radiology scheduling at . Patient Education Personalized Prevention Plan You are due for the preventive services outlined below. Your care team is available to assist you inscheduling these services. If you have already completed any of these items, please share that information with your care team to update in your medical record. Health Maintenance Due Topic Date Due ??? Annual Wellness Visit 08/17/2020 ??? FALL RISK ASSESSMENT 05/29/2021 Preventive Health Recommendations See your health care provider every year to ?? Review health changes. ?? Discuss preventive care. ?? Review your medicines if your doctor has prescribed any. ?? You no longer need a yearly Pap test unless you've had an abnormal Pap test in the past 10 years.If you have vaginal symptoms, such as bleeding or discharge, be sure to talk with your provider about a Pap test. ?? Every 1 to 2 years, have a mammogram. If you are over 69, talk with your health care provider about whether or not you want to continue having screening mammograms. ?? Every 10 years, have a colonoscopy. Or, have a yearly FIT test (stool test). These exams will check for colon cancer. ?? Have a cholesterol test every 5 years, or more often if your doctor advises it. ?? Have a diabetes test (fasting glucose) every three years. If you are at risk for diabetes, you should have this test more often. ?? At age 65, have a bone density scan (DEXA) to check for osteoporosis (brittle bone disease). Shots: ?? Get a flu shot each year. ?? Get a tetanus shot every 10 years. ?? Talk to your doctor about your pneumonia vaccines. There are now two you should receive - Pneumovax (PPSV 23) and Prevnar (PCV 13). ?? Talk to your pharmacist about the shingles vaccine. ?? Talk to your doctor about the hepatitis B vaccine. Nutrition: ?? Eat at least 5 servings of fruits and vegetables each day. ?? Eat whole-grain bread, whole-wheat pasta and brown rice instead of white grains and rice. ?? Get adequate Calcium and Vitamin D. Lifestyle ?? Exercise at least 150 minutes a week (30 minutes a day, 5 days a week). This will help you control your weight and prevent disease. ?? Limit alcohol to one drink per day. ?? No smoking. ?? Wear sunscreen to prevent skin cancer. ?? See your dentist twice a year for an exam and cleaning. ?? See your eye doctor every 1 to 2 years to screen for conditions such as glaucoma, macular degeneration and cataracts. Personalized Prevention Plan You are due for the preventive services outlined below. Your care team is available to assist you inscheduling these services. If you have already completed any of these items, please share that information with your care team to update in your medical record. Health Maintenance Topic Date Due ??? MEDICARE ANNUAL WELLNESS VISIT 08/17/2020 ??? FALL RISK ASSESSMENT 05/29/2021 ??? MAMMO SCREENING 09/10/2022 ??? ADVANCE CARE PLANNING 08/17/2024 ??? COLORECTAL CANCER SCREENING 07/01/2025 ??? LIPID 09/02/2025 ??? DTAP/TDAP/TD IMMUNIZATION (4 - Td or Tdap) 06/30/2027 ??? DEXA 07/01/2035 ??? HEPATITIS C SCREENING Completed ??? PHQ-2 Completed ??? INFLUENZA VACCINE Completed ??? Pneumococcal Vaccine: 65+ Years Completed ??? ZOSTER IMMUNIZATION Completed ??? COVID-19 Vaccine Completed ??? IPV IMMUNIZATION Aged Out ??? MENINGITIS IMMUNIZATION Aged Out ??? HEPATITIS B IMMUNIZATION Aged Out MAN documented in this encounter Progress Notes Margot Branham MD - 10/30/2021 9:00 AM CST History of Present Illness: Ms. Sheikh is a 76 year old female who presents for Chief Complaint Patient presents with ??? Physical ??? Annual Visit PMH of ALEKS, lumbar radiculopathy, osteoporosis, angular chelitis, recent UTI, varicose veins with sclerotherapy 04/23, HTN, HLD. States hip is doing well but still having some upper back pain. She does follow at [facility]. Gets hyaluronic acid injections in knees. She has been seen for angular chelitis and saw Derm, was given nystatin. She continues to take alendronate for osteoporosis. Last dexa was in 06/23. Sees ophtho. No mental health concerns. Wears hearing aids. Got 3 covid vaccines. Routine Health Maintenence: Lung Ca Screening (>20 pk age 50-80): not indicated, not smoker Colonoscopy (45-75 yrs): Last 05/18 [place], normal, no specimens Dexa (>65W or 70M yrs): due 06/25 at [place] Mammogram (40-75 yrs): 06/22 here, otherwise at [place], due Pap (21-65 yrs): Lab Results Component Value Date PAP NIL 09/24/2010 PAP NIL 08/23/2009 Mood/affect:Normal Appearance:Normal Family member/caregiver input: n/a Mini Cog Scoring N/a, she has no concerns, memory is greater than kids, does lots of stimulating activities Review of external notes as documented above A detailed Review of Systems was performed, verified and is negative except as documented in the HPI. All health questionnaires were reviewed, verified and relevant information documented above. Past Medical History: Past Medical History: Diagnosis Date ??? Benign head tremor many years ??? Deviated nasal septum Dr Baer ENT ??? Elevated brain natriuretic peptide (BNP) level 2008 296 ??? Elevated glucose 06/23/2016 [facility] ??? Fibroid uterus ??? H/O: varicose veins ??? Hyperlipidemia ASCVD risk 8.1%, declines statin ??? Hypertension ??? Osteoarthritis bilateral hip and knees ??? Osteopenia ??? PONV (postoperative nausea and vomiting) ??? 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 Urinary problem 2010 has a bladder implant, interstim ??? Vitamin D deficiency Past Surgical History: Past Surgical History: Procedure Laterality Date ??? TOTAL HIP ARTHROPLASTY Left 09/11/2020 ??? BREAST BIOPSY, RT/LT Breast Biopsy RT/LT ??? C/SECTION, CLASSICAL 1978 , Classical ??? CATARACT IOL, RT/LT Left 07/25/2018 ??? CYSTOSCOPY, SLING TRANSVAGINAL N/A 03/26/2015 Procedure: CYSTOSCOPY, SLING TRANSVAGINAL; Surgeon: Carlota Acuña MD; Location: [facility] OR ??? HRW VEIN STRIPPER Left 1996 ??? HYSTEROSCOPY 06/24/2016 ??? IMPLANT STIMULATOR AND LEADS SACRAL NERVE (STAGE ONE AND TWO) 05/19/2011 Procedure:IMPLANT STIMULATOR AND LEADS SACRAL NERVE (STAGE ONE AND TWO); Surgeon:CARLOTA ACUÑA;Location:[facility] OR ??? MAMMOPLASTY REDUCTION 1989 ??? PHACOEMULSIFICATION WITH STANDARD INTRAOCULAR LENS IMPLANT Right 07/18/2018 Procedure: PHACOEMULSIFICATION WITH STANDARD INTRAOCULAR LENS IMPLANT; Right Eye Phacoemulsification with Intraocular Lens ; Surgeon: Martinez Galicia MD; [facility] ??? PHACOEMULSIFICATION WITH STANDARD INTRAOCULAR LENS IMPLANT Left 07/25/2018 Procedure: Left Eye Phacoemulsification with Intraocular Lens; Surgeon: Martinez Galicia MD; [facility] ??? REPLACE GENERATOR STIMULATOR (LOCATION) Left 04/27/2017 Procedure: REPLACE GENERATOR STIMULATOR (LOCATION); Replacement of Left Interstim Battery Latex Allergy; Surgeon: Carlota Acuña MD; [facility] ??? SHOULDER SURGERY Right 04/2019 ??? SURGICAL HISTORY OF - ? Nasal passages microwaved. Dr Baer ENT ??? uteroscopy 05/04/2018 ??? [facility] DELIVERY ONLY Description: Section; Recorded: 11/01/2012; ??? [facility] TOTAL HIP ARTHROPLASTY Right 2006 right ??? [facility] TOTAL HIP ARTHROPLASTY Description: Total Hip Replacement; Recorded: 11/01/2012; ??? [facility] COLONOSCOPY THRU STOMA, DIAGNOSTIC +FHx 2007 Active Meds: Current Outpatient Medications Medication ??? alendronate (FOSAMAX) 70 MG tablet ??? amoxicillin (AMOXIL) 500 MG capsule ??? calcium citrate (CITRACAL) 950 (200 Ca) MG tablet ??? cholecalciferol (VITAMIN D3) 1000 UNIT tablet ??? Coenzyme Q10 (COQ-10) 100 MG CAPS ??? estradiol (ESTRACE) 0.1 MG/GM vaginal cream ??? estradiol (ESTRING) 2 MG vaginal ring ??? glucosamine-chondroitin 500-400 MG CAPS per capsule ??? irbesartan (AVAPRO) 150 MG tablet ??? LYSINE PO ??? magnesium 100 MG CAPS ??? nystatin (MYCOSTATIN) 455180 UNIT/GM external cream ??? omega 3 1000 MG CAPS ??? OTHER MEDICAL SUPPLIES ??? polyethylene glycol (MIRALAX) 17 g packet ??? PROCTO-MED HC 2.5 % cream ??? rosuvastatin (CRESTOR) 5 MG tablet ??? triamcinolone (KENALOG) 0.1 % external ointment ??? valACYclovir (VALTREX) 1000 mg tablet No current facility-administered medications for this visit. Allergies: Codeine, Morphine, Oxycodone, Propofol, Perindopril, Tramadol, Latex, Latex, Nickel, No clinical screening - see comments, and Tape [adhesive tape] Family History: family history includes Aneurysm (age of onset: 40) in her sister; Cancer in her sister; Cancer (ageof onset: 84) in her maternal grandmother; Cancer - colorectal in her mother; Cardiovascular in her father and paternal grandmother; Colon Cancer in her cousin, maternal great-grandfather, mother, paternal aunt, and paternal uncle; Colon Polyps in her father and mother; Glaucoma (age of onset: 55) in her sister; Hypertension in her father, maternal grandfather, maternal grandmother, mother, and paternal grandmother; Myocardial Infarction (age of onset: 82) in her maternal grandfather; No Known Problems in her sister and son; Other - See Comments in her brother; Other Cancer in her sister; Parkinsonism in her sister; Pneumonia in her paternal grandfather. Social History: Social History Tobacco Use ??? Smoking status: Never Smoker ??? Smokeless tobacco: Never Used Substance Use Topics ??? Alcohol use: Yes Comment: wine few times/wk ??? Drug use: No Physical Exam: Vitals: BP 121/68 (BP Location: Right arm, Patient Position: Sitting, Cuff Size: Adult Regular) Pulse 64 Resp 16 Ht 1.695 m (5' 6.75) Wt 67.4 kg (148 lb 11.2 oz) SpO2 99% No BMI 23.46 kg/m?? Constitutional: Alert, oriented, pleasant, no acute distress Head: Normocephalic, atraumatic Eyes: Extra-ocular movements intact, pupils equally round and reactive bilaterally, no scleral icterus ENT: Oropharynx clear, moist mucus membranes, good dentition Neck: Supple, no lymphadenopathy Breasts: normal without suspicious masses, skin changes or axillary nodes Cardiovascular: Regular rate and rhythm, no murmurs, rubs or gallops, peripheral pulses full/symmetric Respiratory: Good air movement bilaterally, lungs clear, no wheezes/rales/rhonchi GI: Abdomen soft, bowel sounds present, nondistended, nontender, no organomegaly or masses, no rebound/guarding Musculoskeletal: No edema, normal muscle tone, normal gait Neurologic: Alert and oriented, cranial nerves 2-12 intact, grossly non-focal Skin: No rashes/lesions Psychiatric: normal mentation, affect and mood Diagnostics: Labs reviewed in [facility] Assessment and Plan: Yamileth was seen today for physical and annual visit. Diagnoses and all orders for this visit: Encounter for screening mammogram for breast cancer - Mammogram, screening w billy (3D); Future Atrophic vaginitis - estradiol (ESTRACE) 0.1 MG/GM vaginal cream; APPLY A SMALL AMOUNT EXTERNALLY TO VULVA TWO TIMES WEEKLY. - estradiol (ESTRING) 2 MG vaginal ring; PLACE 1 RING VAGINALLY EVERY 3 MONTHS. Vaginal dryness - estradiol (ESTRACE) 0.1 MG/GM vaginal cream; APPLY A SMALL AMOUNT EXTERNALLY TO VULVA TWO TIMES WEEKLY. - estradiol (ESTRING) 2 MG vaginal ring; PLACE 1 RING VAGINALLY EVERY 3 MONTHS. Recurrent cold sores - valACYclovir (VALTREX) 1000 mg tablet; Take 1 tablet (1,000 mg) by mouth 2 times daily For one dayat start of outbreak Vitamin D deficiency - estradiol (ESTRACE) 0.1 MG/GM vaginal cream; APPLY A SMALL AMOUNT EXTERNALLY TO VULVA TWO TIMES WEEKLY. - valACYclovir (VALTREX) 1000 mg tablet; Take 1 tablet (1,000 mg) by mouth 2 times daily For one dayat start of outbreak Essential hypertension - irbesartan (AVAPRO) 150 MG tablet; Take 1 tablet (150 mg) by mouth daily Hyperlipidemia LDL goal <100 - rosuvastatin (CRESTOR) 5 MG tablet; Take 1 tablet (5 mg) by mouth daily - Lipid panel reflex to direct LDL Fasting; Future External hemorrhoids - hydrocortisone, Perianal, (PROCTO-MED HC) 2.5 % cream; PLACE RECTALLY 2 TIMES DAILY DIRECTED Age-related osteoporosis without current pathological fracture - alendronate (FOSAMAX) 70 MG tablet; Take 1 tablet (70 mg) by mouth every 7 days Encounter for Medicare annual wellness exam Routine health care reviewed and updated as appropriate. Need for pneumococcal vaccination - Pneumococcal vaccine 23 valent PPSV23 (Pneumovax) [17452] Margot Branham MD Internal Medicine >30 minutes spent today performing chart review, history and exam, documentation and further activities as noted above. Taran Delatorre - 10/30/2021 9:00 AM CST Yamileth Sheikh received the [id number] vaccine today in clinic at the request of Dr. Margot Branham. The immunization was given under the supervision of Dr. Margot Branham if assistance was needed. The immunization site was cleaned with an alcohol prep wipe. The immunization was given without incident--see immunization list for administration details. No swelling or redness was observed at the site of injection after the immunization was given. [facility]. MARILOU Steward at 9:53 AM on 10/30/2021 Taran Delatorre - 10/30/2021 9:00 AM CST Medicare Annual Wellness Visit Previsit Note This 76 year old year old female presents for a Medicare Wellness Exam. 1. What is your marital status: 2. Who lives in your household? Self 3. Does your home have loose rugs in the hallway? No 4. Does your home have grab bars in the bathroom? Yes 5. Does your home have handrails on the stairs? Yes 6. Does your home have poorly lit areas?No 7. How many times have you fallen in the past year? 0 8. How many times have you been in the Emergency Room in the last year? 0 9. How many times have you been hospitalized in the last year? 0 10. Do you feel threatened or controlled by a partner, ex-partner or anyone in your life? No 11. Has anyone hurt you physically, for example by pushing, hitting, slapping or kicking you or forcing you to have sex? No 12. Are you sexually active? No 13. Have you had any sexually transmitted infections in the last year? No 14. Do you have any sexual concerns? No 15. For Women Only: a. What year did you stop having periods (approximate age)? 48 b. Any vaginal bleeding in the last year? No c. Have you ever had an abnormal Pap smear? No 16. Do you need help with the phone, transportation, shopping, preparing meals, housework, laundry, medications or managing money? No 17. Have you noticed any hearing difficulties? Yes 18. Do you wear hearing aids? Yes 19. Have you seen a hearing professional such as an armor reconnaissance vehicle crewman in the past year? Yes 20. Do you have vision difficulties? No 21. Do you wear glasses or contacts? No 22. Have you seen an eye doctor in the past year? Yes 23. How many servings of fruits and vegetables do you eat a day (1 serving is 1 cup)? 10 24. How often do you exercise in a week? 6 25. What kind of exercise do you do and how long? Walking, biking, strengthening, balance exercises 26. Do you wear a seatbelt when driving or riding in a vehicle? Yes 27. Do you use tobacco? No 28. Do you use e-cigarettes? No 29. Do you use any other drugs? No 30. Do you drink alcohol? Yes a. If you drink alcohol, how many drinks per week? 1 31. Over the past 2 weeks, how often have you been bothered by any of the following problems? a. Little interest or pleasure in doing things: 0 b. Feeling down, depressed, or hopeless: 0 c. PHQ-2 Total: 0 32. Have you completed an Advance Directives document? Yes 33. If yes, have you given a copy to the clinic? Yes 34. Would you like information on Advance Directives today? No MARILOU Steward at 10:00 AM on 10/30/2021 MAN documented in this encounter Nursing Notes Taran Mata - 10/30/2021 9:00 AM CST Yamileth Sheikh is a 76 year old female patient that presents today in clinic for the following: Chief Complaint Patient presents with ??? Physical ??? Annual Visit The patient's allergies and medications were reviewed as noted. A set of vitals were recorded as noted without incident: BP 121/68 (BP Location: Right arm, Patient Position: Sitting, Cuff Size: Adult Regular) Pulse 64 Resp 16 Ht 1.695 m (5' 6.75) Wt 67.4 kg (148 lb 11.2 oz) SpO2 99% No BMI 23.46 kg/m?? . The patient was asked if they had any of the following symptoms in the last forty-eight hours: (1) fever or chills, (2) cough, (3) shortness of breath or difficulty breathing, (4) fatigue, (5) muscle or body aches, (6) headache, (7) new loss of taste or smell, (8) sore throat, (9) congestion or runny nose, (10) nausea or vomiting, and (11) diarrhea. Yamileth Sheikh denies having any of the following symptoms in the last forty-eight hours: (1) fever or chills, (2) cough, (3) shortness of breath or difficulty breathing, (4) fatigue, (5) muscle or body aches, (6) headache, (7) new loss of taste or smell, (8) sore throat, (9) congestion or runny nose, (10) nausea or v omiting, and (11) diarrhea. The patient does not have any other questions for the provider. MARILOU Steward at 8:49 AM on 10/30/2021 MAN documented in this encounter Plan of Treatment Upcoming Encounters Date Type Specialty Care Team Description 09/10/2022 Office Visit Internal Medicine LogeaisMargot MD [address] [place] [address] [id number] (Wo rk) Scheduled Orders Name Type Priority Associated Diagnoses Order S chedule Mammogram, screening w Imaging Routine Encounter for scre ening Expected: 10/30/2021 billy (3D) mammogram for breast (Approx imate), cancer Expires: 2022 documented as of this encounter Results Lipid panel reflex to direct LDL Fasting (10/30/2021 10:04 AM HOT MAN) [facility] Time Signature Cholesterol 159 <200 mg/dL 10/30/2021 [facility] 10:30 AM [facility] - CORE LAB Triglycerides 89 <150 mg/dL 10/30/2021 [facility] 10:30 AM [facility] Direct Measure HDL 83 >=50 mg/dL 10/30/2021 [facility] 10:30 AM [facility] LDL Cholesterol 58 <=100 10/30/2021 [facility] Calculated mg/dL 10:30 AM [facility] Non HDL 76 <130 mg/dL 10/30/2021 [facility] Cholesterol 10:30 AM [facility] Patient Fasting > Yes 10/30/2021 [facility] 8hrs? 10:30 AM [facility] Specimen Anatomical Collection Method / Collection Time Recei yenny Time (Source) Location / Volume Laterality Blood STRUCTURE OF LEFT Venipuncture / 10/30/2021 10:04 10/05 UPPER LIMB / Unknown AM HOT MAN 10:04 AM HOT MAN Unknown Narrative [facility] - 10/30/2021 10:30 AM HOT MAN Cholesterol Desirable: ??<200 mg/dL Triglycerides Normal: ??Less [...] LAB - BLOOD ORDERABLES Performing Organization Address City/State/[facility] Phon e Number [facility] - CORE LAB [facility] [place] [address] [place] - [address] Floor Lab Core Lab [facility] - CORE LAB [place], [place] [address] Clinics and Surgery [place] [facility] [address] 1[address] Floor Lab Core Lab documented in this encounter Visit Diagnoses Diagnosis Encounter for screening mammogram for br east cancer - Primary Atrophic vaginitis Postmenopausal atrophic vaginitis Screen for colon cancer Special screening for malignant neoplasm s, colon Seasonal allergies Allergic rhinitis, cause unspecified Chronic rhinitis Vaginal dryness Other specified symptom associated with female genital organs Recurrent cold sores Herpes simplex without mention of compli cation Vitamin D deficiency Unspecified vitamin D deficiency Essential hypertension Unspecified essential hypertension Hyperlipidemia LDL goal <100 Other and unspecified hyperlipidemia External hemorrhoids External hemorrhoids without mention of complication Need for pneumococcal vaccination Need for prophylactic vaccination agains t streptococcus pneumoniae (pneumococcus) Age-related osteoporosis without current pathological fracture Senile osteoporosis Encounter for Medicare annual wellness e xam Routine general medical examination at a health care facility documented in this encounter Additional Health Concerns Assessment Noted Time PHQ-9 Depression Total Score: 0 11/22/2019 10:49 AM CS T documented as of this encounter Care Teams Regional Administrative Assistant Relationship Specialty Start Date End Date Margot Branham MD PCP - General Internal Medicine 10/28/[address] [place] [address] [id number] Carlota Acuña MD MD Urology 04/10/[id number] [place], [place] [phone] Michelle Montana RN Registered Nurse Urology 05/07/17 Anh Costa APRN ELECTRONIC PUBLICATIONS SPECIALIST Nurse Practitioner Nurse Practitioner 10/07 Martinez Galicia MD MD Ophthalmology 04/18/[address] [place] [address] [id number] Sabino Romano DPM MD Podiatry 08/11/[address] [place] [address] [phone] Mehreen Johnston MD PhD MD Family Practice 11/15/[address] [place] [address] [phone] Margot Branham MD MD Internal Medicine 04/17/[address] [place] [address] [phone] Margot Branham MD Assigned PCP 09/15/[address] [address] documented as of this encounter
--- OUTSIDE RECORDS SUMMARY | 2022-07-30 19:21 | XMS_ITS | Encounter Summary ---
:1945 Author Organization [place] Address [address] [place] [address]. [place] [address] Care Team Providers Name Role Phone Carlota Landeros MD Unavailable Michelle Montana RN Unavailable Anh Costa AUTOMOTIVE SALES EXECUTIVE COOLING TOWER TECHNICIAN Unavailable Unavailable Martinez Galicia MD Unavailable Sabino Romano DPM Unavailable Mehreen Johnston MD PhD Unavailable [phone] LogMargot sadler MD Unavailable Margot Branham MD Unavailable Margot Branham MD Primary Care Provider Alonso Tejeda MD Unavailable Reason for Visit Reason Onset Date Comments Medication Request 01/12/2022 Encounter Details Date Type Department Care Team Description 01/12/2022 [facility] Margot Branham MD Medication Request Internal Medicine [address] 909 [place], [place] 4th Floor [address] [place], [place] [phone] (Wo rk) [address] [phone] Social History Tobacco Use Types Packs/Day Years [...] / COVID-19? documented as of this encounter Miscellaneous Notes Telephone Encounter - Belia Melendez - 01/12/2022 11:55 AM CDT Reason for Call: Medication or medication refill: Do you use a [facility]? Name of the pharmacy and phone number for the current request: [facility] Drug Name of the medication requested: Fluconazole for her fungus Other request: Per pt, she usually get a fungal infection after taking antibiotics for UTI, she forgot to ask Provider at last visit for Fluconazole. Can we leave a detailed message on this number? YES Phone number patient can be reached at: Home number on file [phone] (home) Best Time: ANY Call taken on 01/12/2022 at 11:56 AM by Belia Melendez documented in this encounter Plan of Treatment Upcoming Encounters Date Type Specialty Care Team Description 09/10/2022 Office Visit Internal Medicine Margot Branham MD [address] [address] (Wo rk) documented as of this encounter Visit Diagnoses Not on filedocumented in this encounter Additional Health Concerns Assessment Noted Time PHQ-9 Depression Total Score: 0 11/22/2019 10:49 AM CS T documented as of this encounter Care Teams Weather Strip Mechanic Relationship Specialty Start Date End Date Margot Branham MD PCP - General Internal Medicine 10/28/[address] [place] [address] Carlota Landeros MD MD Urology 04/10/[address] [place], [place] [phone] Michelle Montana, RN Registered Nurse Urology 05/07/17 Anh Costa APRN COOLING TOWER TECHNICIAN Nurse Practitioner Nurse Practitioner 10/07 Martinez Galicia MD MD Ophthalmology 04/18/18 [address] [place], [place] [phone] Sabino Romano DPM MD Podiatry 08/11/18 [facility] [address] [phone] Mehreen Johnston MD PhD MD Family Practice 11/15/[address] [place] [address] [phone] Margot Branham MD MD Internal Medicine 04/17/[address] [place] [address] [phone] Margot Branham MD Assigned PCP 09/15/[address] [place] [id number] Alonso Tejeda MD MD Internal Medicine 06/19/[address] [place] [phone] documented as of this encounter
--- OUTSIDE RECORDS SUMMARY | 2022-07-30 19:21 | XMS_ITS | Encounter Summary ---
:1945 Author Organization [place] Address [address] [place] [address]. [place] [address] Care Team Providers Name Role Phone Carlota Landeros MD Unavailable Michelle Montana RN Unavailable Anh Costa OR RN LEAD CASHIER Unavailable Unavailable Martinez Galicia MD Unavailable Sabino Romano DPM Unavailable Mehreen Johnston MD PhD Unavailable [phone] LogeaMargot man MD Unavailable LogMargot sadler MD Unavailable LogMargot sadler MD Primary Care Provider Encounter Details Date Type Department Care Team Description 04/24/2022 Lab [facility] Lab [place] usal syndrome (hot flashes); Spring Abnormal findings on diagnos tic imaging of other specified body structures [address] [place] [phone] Social History Tobacco Use Types Packs/Day [...] in contact with No / Unsu re 04/24/2022 8:54 AM CDT someone who was confirmed or suspected to have Coronavirus/COVID-19? documented as of this encounter Plan of Treatment Upcoming Encounters Date Type Specialty Care Team Description 09/10/2022 Office Visit Internal Medicine Margot Branham MD [address] [address] (Wo rk) documented as of this encounter Procedures Procedure Name Priority Date/Time Associated Comments Diagnosis ROUTINE UA WITH Routine 04/24/2022 11:48 Menopausal syndrome R esults for this MICROSCOPIC REFLEX TO AM CDT (hot flashes) proce dure are in CULTURE the results section. CBC WITH PLATELETS AND Routine 04/24/2022 11:01 Menopausal syn drome Results for this DIFFERENTIAL AM CDT (hot flashes) procedure are in Abnormal findings the result s on diagnostic section. imaging of other specified body structures CBC WITH PLATELETS & Routine 04/24/2022 11:01 Menopausal syndr ome Results for this DIFFERENTIAL AM CDT (hot flashes) procedure are in Abnormal findings the result s on diagnostic section. imaging of other specified body structures TSH WITH FREE T4 Routine 04/24/2022 11:01 Menopausal syndrome Results for this REFLEX AM CDT (hot flashes) procedure are in Abnormal findings the result s on diagnostic section. imaging of other specified body structures ESTRADIOL Routine 04/24/2022 11:01 Menopausal syndrome Resu lts for this AM CDT (hot flashes) procedure are in the results section. CRP INFLAMMATION Routine 04/24/2022 11:01 Menopausal syndrome Results for this AM CDT (hot flashes) procedure are in the results section. COMPREHENSIVE Routine 04/24/2022 11:01 Menopausal syndrome Res ults for this METABOLIC PANEL AM CDT (hot flashes) procedure a re in the results section. documented in this encounter Results UA with Micro reflex to Culture (04/24/2022 11:48 AM CDT) [facility] Method Time Signature Color Urine Yellow Colorless, JAKUB 04/24/2022 [facility] Straw, Light 12:19 PM LABORATORY - Yellow, CDT CORE LAB Yellow Appearance Urine Clear Clear JAKUB 04/24/2022 [facility] 12:19 PM LABORATORY - CDT CORE LAB Glucose Urine Negative Negative JAKUB 04/24/2022 [facility] mg/dL 12:19 PM LABORATORY - CDT CORE LAB Bilirubin Urine Negative Negative JAKUB 04/24/2022 [facility] 12:19 PM LABORATORY - CDT CORE LAB Ketones Urine Negative Negative JAKUB 04/24/2022 [facility] mg/dL 12:19 PM LABORATORY - CDT CORE LAB Specific Somis 1.020 1.003 - JAKUB 04/24/2022 [facility] Urine 1.035 12:19 PM LABORATORY - CDT CORE LAB Blood Urine Negative Negative JAKUB 04/24/2022 [facility] 12:19 PM LABORATORY - CDT CORE LAB pH Urine 5.0 5.0 - 7.0 JAKUB 04/24/2022 [facility] 12:19 PM LABORATORY - CDT CORE LAB Protein Albumin Negative Negative JAKUB 04/24/2022 [facility] Urine mg/dL 12:19 PM LABORATORY - CDT CORE LAB Urobilinogen Normal Normal, 2.0 JAKUB 04/24/2022 [facility] Urine mg/dL 12:19 PM LABORATORY - CDT CORE LAB Nitrite Urine Negative Negative JAKUB 04/24/2022 [facility] 12:19 PM LABORATORY - CDT CORE LAB Leukocyte Negative Negative JAKUB 04/24/2022 [facility] Esterase Urine 12:19 PM LABORATORY - CDT CORE LAB Bacteria Urine None Seen None Seen 04/24/2022 [facility] /HPF 12:19 PM LABORATORY - CDT CORE LAB RBC Urine 0 <=2 /HPF 04/24/2022 [facility] 12:19 PM LABORATORY - CDT CORE LAB WBC Urine <1 <=5 /HPF 04/24/2022 [facility] 12:19 PM LABORATORY - CDT CORE LAB Specimen Anatomical Collection Method Collection Time Receive d Time (Source) Location / / Volume Laterality Urine MID-STREAM URINE Non-blood 04/24/2022 11:48 022 SPECIMEN / Unknown Collection / AM CDT 11:48 AM CDT Unknown Narrative [facility]ORY - CORE LAB - 04/24/2022 12:19 PM CDT Urine Culture not indicated Margot Branham MD LAB - URINE ORDERABLES Performing Organization Address City/State/ZIP Code Phon e Number [facility] - CORE LAB [facility] [place] [address] 1st Floor Lab Core Lab [facility] - CORE LAB [place], [place] [address] Clinics and Surgery [place] - [address] 1st Floor Lab Core Lab CBC with platelets and differential (04/24/2022 11:01 AM CDT) Analysis Performed At Patho logist Time Signature WBC Count 5.9 4.0 - 11.0 04/24/2022 [facility] 10e3/uL 11:06 AM CDT LABORATORY - CORE LAB RBC Count 4.62 3.80 - 04/24/2022 [facility] 5.20 11:06 AM CDT LABORATORY - 10e6/uL CORE LAB Hemoglobin 14.2 11.7 - 04/24/2022 [facility] 15.7 g/dL 11:06 AM CDT LABORATORY - CORE LAB Hematocrit 42.7 35.0 - 04/24/2022 [facility] 47.0 % 11:06 AM CDT LABORATORY - CORE LAB MCV 92 78 - 100 04/24/2022 [facility] fL 11:06 AM CDT LABORATORY - CORE LAB MCH 30.7 26.5 - 04/24/2022 [facility] 33.0 pg 11:06 AM CDT LABORATORY - CORE LAB MCHC 33.3 31.5 - 04/24/2022 [facility] 36.5 g/dL 11:06 AM CDT LABORATORY - CORE LAB RDW 12.7 10.0 - 04/24/2022 [facility] 15.0 % 11:06 AM CDT LABORATORY - CORE LAB Platelet Count 157 150 - 450 04/24/2022 [facility] 10e3/uL 11:06 AM CDT LABORATORY - CORE LAB % Neutrophils 67 % 04/24/2022 [facility] 11:06 AM CDT LABORATORY - CORE LAB % Lymphocytes 24 % 04/24/2022 [facility] 11:06 AM CDT LABORATORY - CORE LAB % Monocytes 7 % 04/24/2022 [facility] 11:06 AM CDT LABORATORY - CORE LAB % Eosinophils 2 % 04/24/2022 [facility] 11:06 AM CDT LABORATORY - CORE LAB % Basophils 0 % 04/24/2022 [facility] 11:06 AM CDT LABORATORY - CORE LAB % Immature 0 % 04/24/2022 [facility] Granulocytes 11:06 AM CDT LABORATORY - CORE LAB NRBCs per 100 WBC 0 <1 /100 04/24/2022 [facility] 11:06 AM CDT LABORATORY - CORE LAB Absolute 3.9 1.6 - 8.3 04/24/2022 [facility] Neutrophils 10e3/uL 11:06 AM CDT LABORATORY - CORE LAB Absolute 1.4 0.8 - 5.3 04/24/2022 [facility] Lymphocytes 10e3/uL 11:06 AM CDT LABORATORY - CORE LAB Absolute 0.4 0.0 - 1.3 04/24/2022 [facility] Monocytes 10e3/uL 11:06 AM CDT LABORATORY - CORE LAB Absolute 0.1 0.0 - 0.7 04/24/2022 [facility] Eosinophils 10e3/uL 11:06 AM CDT LABORATORY - CORE LAB Absolute 0.0 0.0 - 0.2 04/24/2022 [facility] Basophils 10e3/uL 11:06 AM CDT LABORATORY - CORE LAB Absolute Immature 0.0 <=0.4 04/24/2022 [facility] Granulocytes 10e3/uL 11:06 AM CDT LABORATORY - CORE LAB Absolute NRBCs 0.0 10e3/uL 04/24/2022 [facility] 11:06 AM CDT LABORATORY - CORE LAB Specimen Anatomical Collection Method / Collection Time Recei yenny Time (Source) Location / Volume Laterality Blood STRUCTURE OF LEFT Venipuncture / 04/24/2022 11:01 04/04 UPPER LIMB / Unknown AM CDT 11:02 AM CDT Unknown Margot Branham MD LAB - BLOOD ORDERABLES Performing Organization Address [facility]/State/[facility] Phon e Number [facility] - CORE LAB [facility] [place] [address] 1st Floor Lab Core Lab [facility] - CORE LAB [place], [place] [address] Clinics and Surgery [address] 1st Floor Lab Core Lab (ABNORMAL) Comprehensive metabolic panel (04/24/2022 11:01 AM CDT) [facility] Method Time Signature Sodium 141 133 - 144 04/24/2022 [facility] mmol/L 11:24 AM CDT LABORATORY - CORE LAB Potassium 4.5 3.4 - 5.3 04/24/2022 [facility] mmol/L 11:24 AM CDT LABORATORY - CORE LAB Chloride 109 94 - 109 04/24/2022 [facility] mmol/L 11:24 AM CDT LABORATORY - CORE LAB Carbon Dioxide 25 20 - 32 04/24/2022 [facility] (CO2) mmol/L 11:24 AM CDT LABORATORY - CORE LAB Anion Gap 7 3 - 14 04/24/2022 [facility] mmol/L 11:24 AM CDT LABORATORY - CORE LAB Urea Nitrogen 20 7 - 30 04/24/2022 [facility] mg/dL 11:24 AM CDT LABORATORY - CORE LAB Creatinine 0.75 0.52 - 04/24/2022 [facility] 1.04 mg/dL 11:24 AM CDT LABORATORY - CORE LAB Calcium 9.0 8.5 - 10.1 04/24/2022 [facility] mg/dL 11:24 AM CDT LABORATORY - CORE LAB Glucose 103 (H) 70 - 99 04/24/2022 [facility] mg/dL 11:24 AM CDT LABORATORY - CORE LAB Alkaline 77 40 - 150 04/24/2022 [facility] Phosphatase U/L 11:24 AM CDT LABORATORY - CORE LAB AST 22 0 - 45 U/L 04/24/2022 [facility] 11:24 AM CDT LABORATORY - CORE LAB ALT 25 0 - 50 U/L 04/24/2022 [facility] 11:24 AM CDT LABORATORY - CORE LAB Protein Total 6.9 6.8 - 8.8 04/24/2022 [facility] g/dL 11:24 AM CDT LABORATORY - CORE LAB Albumin 3.8 3.4 - 5.0 04/24/2022 [facility] g/dL 11:24 AM CDT LABORATORY - CORE LAB Bilirubin Total 0.5 0.2 - 1.3 04/24/2022 [facility] mg/dL 11:24 AM CDT LABORATORY - CORE LAB GFR Estimate 83 >60 04/24/2022 [facility] mL/min/1.7 11:24 AM CDT LABORATORY - 3m2 CORE LAB Comment: Effective September 23, 2021 eGF Rcr in adults is calculated using the 2020 CKD-EPI creatinine equation which includ es age and gender (Brianna et al., NEJ, DOI: 10.1056/VJAAci8088783) Specimen Anatomical Collection Method / Collection Time Recei yenny Time (Source) Location / Volume Laterality Blood STRUCTURE OF LEFT Venipuncture / 04/24/2022 11:01 04/04 UPPER LIMB / Unknown AM CDT 11:02 AM CDT Unknown Margot Branham MD LAB - BLOOD ORDERABLES Performing Organization Address City/State/ZIP Code Phon e Number [facility] - CORE LAB [facility] [place] [address] 1st Floor Lab Core Lab [facility] - CORE LAB [place], [place] [address] Clinics and Surgery [address] Floor Lab Core Lab CRP inflammation (04/24/2022 11:01 AM CDT) Analysis Performed At Patho logist Time Signature CRP Inflammation <2.9 0.0 - 8.0 04/24/2022 [facility] mg/L 11:24 AM CDT LABORATORY - CORE LAB Specimen Anatomical Collection Method / Collection Time Recei yenny Time (Source) Location / Volume Laterality Blood STRUCTURE OF LEFT Venipuncture / 04/24/2022 11:01 04/04 UPPER LIMB / Unknown AM CDT 11:02 AM CDT Unknown Margot Branham MD LAB - BLOOD ORDERABLES Performing Organization Address City/State/[facility] Code Phon e Number [facility] - CORE LAB [facility] [place] [address] Floor Lab Core Lab [facility] - CORE LAB [place], [place] [address] Clinics and Surgery [address] Floor Lab Core Lab Estradiol (04/24/2022 11:01 AM CDT) athologist Signature Estradiol <5 pg/mL 04/24/2022 6:10 [facility] PM CDT Comment: Healthy Men: 11.3-43.2 pg/mL Healthy Postmenopausal Women: Postmenopause: <5-138 pg/mL Healthy Women: 1st trimester: 154-3243 pg/mL 2nd trimester: 1561-84300 pg/mL 3rd trimester: 8525->81369 pg/mL Healthy Women Cycle Phase: Follicular: 30.9-90.4 pg/mL Ovulation: 60.4-533 pg/mL Luteal: 60.4-232 pg/mL Healthy Women Cycle Sub-Phase: Early Follicular: 20.5-62.8 pg/mL Intermediate Follicular: 26-79.8 pg/mL Late Follicular: 49.5-233 pg/mL Ovulation: 60.4-602 pg/mL Early Luteal: 51.1-179 pg/mL Intermediate Luteal: 66.5-305 pg/mL Late Luteal: 30.2-222 pg/mL Specimen Anatomical Collection Method / Collection Time Recei yenny Time (Source) Location / Volume Laterality Blood STRUCTURE OF LEFT Venipuncture / 04/24/2022 11:01 04/04 UPPER LIMB / Unknown AM CDT 11:02 AM CDT Unknown Margot Branham MD LAB - BLOOD ORDERABLES Performing Organization Address City/State/ZIP Code Phon e Number U LABORATORY [facility] [place] [address] Lab [address] [facility] J Building, Room 3-580 TSH with free T4 reflex (04/24/2022 11:01 AM CDT) P athologist Signature TSH 0.74 0.40 - 4.00 04/24/2022 [facility] mU/L 11:31 AM CDT - CORE LAB Specimen Anatomical Collection Method / Collection Time Recei yenny Time (Source) Location / Volume Laterality Blood STRUCTURE OF LEFT Venipuncture / 04/24/2022 11:01 04/04 UPPER LIMB / Unknown AM CDT 11:02 AM CDT Unknown Margot Branham MD LAB - BLOOD ORDERABLES Performing Organization Address City/[facility] Phon e Number [facility] - CORE LAB [facility] [place] [address] Floor Lab Core Lab [facility] - CORE LAB [place], [place] [address] Clinics and Surgery [place] - [address] Floor Lab Core Lab documented in this encounter Visit Diagnoses Diagnosis Menopausal syndrome (hot flashes) Symptomatic menopausal or female climact froy states Abnormal findings on diagnostic imaging of other specified body structures documented in this encounter Additional Health Concerns Assessment Noted Time PHQ-9 Depression Total Score: 0 11/22/2019 10:49 AM CS T documented as of this encounter Care Teams Postbed Stitcher Relationship Specialty Start Date End Date Margot Branham MD PCP - General Internal Medicine 10/28/[address] [place] [id number] Carlota Landeros MD MD Urology 04/10/[address] [place] [address] Michelle Montana, RN Registered Nurse Urology 05/07/17 Anh Costa APRN LEAD CASHIER Nurse Practitioner Nurse Practitioner 10/07 Martinez Galicia MD MD Ophthalmology 04/18/18 [address] [place], [place] [phone] Sabino Romano DPM MD Podiatry 08/11/[address] [phone] Mehreen Johnston MD PhD MD Family Practice 11/15/[address] [place] [address] [phone] Margot Branham MD MD Internal Medicine 04/17/[address] [place] [address] [phone] Margot Branham MD Assigned PCP 09/15/[address] [place] [address] [phone] documented as of this encounter
--- OUTSIDE RECORDS SUMMARY | 2022-07-30 19:21 | XMS_ITS | Encounter Summary ---
:1945 Author Organization [facility] Address [address] [place] [address]. [place] [address] Care Team Providers Name Role Phone Carlota Landeros MD Unavailable Michelle Montana RN Unavailable Anh Costa SLEEVE TURNER STRADDLE TRUCK OPERATOR Unavailable Unavailable Martinez Galicia MD Unavailable Sabino Romano DPM Unavailable Mehreen Johnston MD PhD Unavailable [phone] LogeaMargot man MD Unavailable LogeaMargot man MD Unavailable LogMargot sadler MD Primary Care Provider Reason for Visit Diagnostic Imaging CT Scan (Routine) - Closed Specialty Diagnoses / Procedures Referred By Contact Refer red To Contact Diagnoses Neck pain Spine instability Mitul Bacon, FIELD ADVISOR Procedures CT Cervical Spine w/o Contrast [facility] [address] [place] [address] Referral ID Status Reason Start Date Expiration Date Visits Requ ested Visits Authorized [id number] Closed 01/08/2022 01/08/2023 1 1 Encounter Details Date Type Department Care Team Description 01/23/2022 Ancillary Procedure [facility] Mitul Bacon, Neck pain; Imaging Center CT FIELD ADVISOR Spine instability Clinic [facility] [address] [facility] 1st Floor [address] [facility] [address] [place] [address] [phone] Social History Tobacco Use Types Packs/Day Years [...] in contact with No / Unsu re 01/23/2022 7:58 AM CDT someone who was confirmed or suspected to have Coronavirus/COVID-19? documented as of this encounter Plan of Treatment Upcoming Encounters Date Type Specialty Care Team Description 09/10/2022 Office Visit Internal Medicine LogeaisMargot MD [address] [id number] (Wo rk) documented as of this encounter Procedures Procedure Name Priority Date/Time Associated Diagnosis Comme nts CT CERVICAL SPINE Routine 01/23/2022 8:47 AM Neck pain Results for this W/O CONTRAST CDT Spine instability procedure are in the results section. documented in this encounter Results CT Cervical Spine w/o Contrast (01/23/2022 8:47 AM CDT) Anatomical Region Laterality Modality Spine, SUBRAD CT NEURO, SUBRAD CT NEURO, UMP CT SPINE, Computed Tomography RAD CT Specimen (Source) Anatomical Location Collection Method / Collectio n Time Received Time / Laterality Volume Impressions 01/23/2022 9:55 AM CDT Impression: 1. Multilevel cervical spondylosis witho ut high-grade spinal canal or neural foraminal stenosis. Multilevel mi ld neural foraminal stenosis as detailed above. 2. No acute fracture or traumatic sublux ation. I have personally reviewed the examinati on and initial interpretation and I agree with the findings. CAIN ROBERTSON MD Narrative 01/23/2022 9:[address] CERVICAL SPINE W/O CONTRAST 01/23/2022 8:47 AM Provided History: Patient has bladder st imulator, unable to have MRI; Neck pain; Spine instability Comparison: None. Technique: Using multidetector thin james imation helical acquisition technique, axial, coronal and sagittal C T images through the cervical spine were obtained without intravenous contrast. Findings: Minimal anterolisthesis at C2-3. Mild di ffuse osteopenia. Gjqk-pu-todeiofn degenerative changes, i ncluding the apical dens, multilevel moderate/marked disc space lo ss, notably at the C3-4, C4-5, C5-6 levels, multilevel subendplate dege nerative cystic change, and mild anterior endplate osteophytic proje ctions of C5-C6 and C7-8. No acute fracture or traumatic subluxation. No prevertebral soft tissue edema. The findings on a level by level basis a re as follows: C2-3: ??No significant disc bulge, spina l canal stenosis, or neural foraminal narrowing. C3-4: ??Uncovertebral spurring No signif icant spinal canal or neural foraminal narrowing. C4-5: ??Disc osteophyte complex and bila teral uncinate spurring. Mild bilateral neural foraminal narrowing. Mi ld spinal canal stenosis. C5-6: ??Disc osteophyte complex and unci zbigniew spurring. Mild bilateral neural foraminal narrowing. No spinal ca nal stenosis. C6-7: ??Central protrusion. No spinal ca nal or neural foraminal stenosis. C7-T1: Uncinate spurring resulting in mi ld bilateral neural foraminal stenosis. No spinal canal stenosis. No abnormality of the paraspinous soft t issues. Limited lung apices are clear, aside fro m mild biapical scarring. Procedure Note Cain Robertson MD - 01/23/2022Formatt ing of this note might be different from the original. CT CERVICAL SPINE W/O CONTRAST 01/23/2022 8:47 AM Provided History: Patient has bladder st imulator, unable to have MRI; Neck pain; Spine instability Comparison: None. Technique: Using multidetector thin james imation helical acquisition technique, axial, coronal and sagittal C T images through the cervical spine were obtained without intravenous contrast. Findings: Minimal anterolisthesis at C2-3. Mild di ffuse osteopenia. Kznq-cz-lldqqjzm degenerative changes, i ncluding the apical dens, multilevel moderate/marked disc space lo ss, notably at the C3-4, C4-5, C5-6 levels, multilevel subendplate dege nerative cystic change, and mild anterior endplate osteophytic proje ctions of C5-C6 and C7-8. No acute fracture or traumatic subluxation. No prevertebral soft tissue edema. The findings on a level by level basis a re as follows: C2-3: No significant disc bulge, spinal canal stenosis, or neural foraminal narrowing. C3-4: Uncovertebral spurring No signific ant spinal canal or neural foraminal narrowing. C4-5: Disc osteophyte complex and bilate ral uncinate spurring. Mild bilateral neural foraminal narrowing. Mi ld spinal canal stenosis. C5-6: Disc osteophyte complex and uncina te spurring. Mild bilateral neural foraminal narrowing. No spinal ca nal stenosis. C6-7: Central protrusion. No spinal oralia l or neural foraminal stenosis. C7-T1: Uncinate spurring resulting in mi ld bilateral neural foraminal stenosis. No spinal canal stenosis. No abnormality of the paraspinous soft t issues. Limited lung apices are clear, aside fro m mild biapical scarring. Impression: 1. Multilevel cervical spondylosis witho ut high-grade spinal canal or neural foraminal stenosis. Multilevel mi ld neural foraminal stenosis as detailed above. 2. No acute fracture or traumatic sublux ation. I have personally reviewed the examinati on and initial interpretation and I agree with the findings. CAIN ROBERTSON MD Mitul Jody Bacon FIELD ADVISOR IMG CT ORDERABLES documented in this encounter Visit Diagnoses Diagnosis Neck pain Cervicalgia Spine instability Other unspecified back disorder documented in this encounter Additional Health Concerns Assessment Noted Time PHQ-9 Depression Total Score: 0 11/22/2019 10:49 AM CS T documented as of this encounter Care Teams Precision Farming Specialist Relationship Specialty Start Date End Date Margot Branham MD PCP - General Internal Medicine 10/28/[address] [address] Carlota Landeros MD MD Urology 04/10/[address] [place], [place] [id number] Michelle Montana, RN Registered Nurse Urology 05/07/17 Anh Costa APRN STRADDLE TRUCK OPERATOR Nurse Practitioner Nurse Practitioner 10/07 Martinez Galicia MD MD Ophthalmology 04/18/[address] [place] [address] [phone] Sabino Romano DPM MD Podiatry 08/11/[address] [place] [phone] Mehreen Johnston MD PhD MD Family Practice 11/15/[address] [place] [phone] Margot Branham MD MD Internal Medicine 04/17/[address] [place] [address] [phone] Margot Branham MD Assigned PCP 09/15/[address] [place] [phone] documented as of this encounter
--- OUTSIDE RECORDS SUMMARY | 2022-07-30 19:21 | XMS_ITS | Encounter Summary ---
:1945 Author Organization [facility] Address [address] [place] [address]. [place] [address] Care Team Providers Name Role Phone Carlota Landeros MD Unavailable Michelle Montana RN Unavailable Anh Costa COMPLAINT INSPECTOR CAPABILITY LEAD Unavailable Unavailable Martinez Galicia MD Unavailable Sabino Romano DPM Unavailable Mehreen Johnston MD PhD Unavailable [phone] LogMargot sadler MD Unavailable Margot Branham MD Unavailable Margot Branham MD Primary Care Provider Alonso Tejeda MD Unavailable Encounter Details Date Type Department Care Team Description 07/15/2022 Travel Social History Tobacco Use Types Packs/Day [...] Office Visit Internal Medicine Margot Branham MD [address] [place] [address] [phone] (Wo rk) documented as of this encounter Visit Diagnoses Not on filedocumented in this encounter Additional Health Concerns Assessment Noted Time PHQ-9 Depression Total Score: 0 11/22/2019 10:49 AM CS T documented as of this encounter Care Teams Telegraphic Typewriter Operator Chief Relationship Specialty Start Date End Date Margot Branham MD PCP - General Internal Medicine 10/28/[address] [place] [phone] Carlota Landeros MD MD Urology 04/10/[address] [place], [place] [address] Michelle Montana RN Registered Nurse Urology 05/07/17 Anh Costa APRN CAPABILITY LEAD Nurse Practitioner Nurse Practitioner 10/07 Martinez Galicia MD MD Ophthalmology 04/18/18 [address] [place], [place] [phone] Sabino Romano DPM MD Podiatry 08/11/[address] [phone] Mehreen Johnston MD PhD MD Family Practice 11/15/[address] [place] [address] [phone] Margot Branham MD MD Internal Medicine 04/17/[address] [place] [address] [phone] Margot Branahm MD Assigned PCP 09/15/[address] [place] [address] [phone] Alonso Tejeda MD MD Internal Medicine 06/19/[address] [place] [phone] documented as of this encounter
--- OUTSIDE RECORDS SUMMARY | 2022-07-30 19:21 | XMS_ITS | Clinical Summary ---
:1945 Author Organization [place] Address [address] [place] [address]. [place] [address] Care Team Providers Name Role Phone Carlota Landeros MD Unavailable Michelle Montana RN Unavailable Anh Costa PRESS SET UP ELECTROPHONIC ENGINEER Unavailable Unavailable Martinez Galicia MD Unavailable Sabino Romano DPM Unavailable Mehreen Johnston MD PhD Unavailable [phone] LogeaMargot man MD Unavailable LogeaMargot man MD Unavailable LogeaMargot man MD Primary Care Provider Alonso Tejeda MD Unavailable Allergies Active Allergy Reactions Severity Noted Date Comments Codeine Nausea and Vomiting High 12/10/2008 Latex Rash Low 11/14/2010 Latex Rash Low 03/16/2014 Morphine Nausea and Vomiting High 12/10/2008 Other re action(s): GI intolerance, severe dry heav es Nickel Rash Low 07/05/2007 No Clinical Screening - Rash Low 07/05/2007 See Comments Oxycodone Other (See Comments) High Perindopril Cough, Tinnitus 03/25/2018 Other reacti on(s): Cough Propofol Other (See Comments), High 05/19/2011 Other reaction(s): Nausea and Vomiting GI intol erance Extreme vertigo and nausea/vomiting Adhesive Tape Rash Low 09/30/2009 Including steri-strips Tramadol GI Disturbance 06/13/2019 Medications Medication Sig Dispensed Refills Start Date End Date Status OTHER MEDICAL SUPPLIES ROCÍO stockings knee 0 Active length USE DIRECTED . cholecalciferol Take 2 tablets by 0 Active (VITAMIN D3) 1000 UNIT mouth daily. tablet amoxicillin (AMOXIL) Take 2 capsules by 0 01/18/2015 Active 500 MG capsule mouth as needed 1 hour before dental procedures LYSINE PO Take 1 tablet by 0 Act jennifer mouth daily Coenzyme Q10 (COQ-10) Take 100 mg by 0 Active 100 MG CAPS mouth daily calcium citrate Take 1 tablet by 0 Active (CITRACAL) 950 (200 mouth 2 times Ca) MG tablet daily magnesium 100 MG CAPS Take 150 mg by 0 Active mouth polyethylene glycol Take 1 packet by 0 Active (MIRALAX) 17 g packet mouth daily glucosamine-chondroiti Take 1 capsule by 0 Active n 500-400 MG CAPS per mouth daily capsule omega 3 1000 MG CAPS Take 1,200 mg by 0 Active mouth estradiol (ESTRACE) APPLY A SMALL 42.5 g 0 10/30/2021 Active 0.1 MG/GM vaginal AMOUNT EXTERNALLY creamIndications: TO VULVA TWO TIMES Atrophic vaginitis, WEEKLY. Screen for colon cancer, Seasonal allergies, Chronic rhinitis, Vaginal dryness, Recurrent cold sores, Vitamin D deficiency estradiol (ESTRING) 2 PLACE 1 RING 1 each 3 10/30/2021 Active MG vaginal VAGINALLY EVERY 3 ringIndications: MONTHS. Atrophic vaginitis, Vaginal dryness irbesartan (AVAPRO) Take 1 tablet (150 90 tablet 3 10/30/2021 Active 150 MG mg) by mouth daily tabletIndications: Essential hypertension rosuvastatin (CRESTOR) Take 1 tablet (5 90 tablet 3 10/30/2021 Active 5 MG mg) by mouth daily tabletIndications: Hyperlipidemia LDL goal <100 valACYclovir (VALTREX) Take 1 tablet 10 tablet 1 10/30/2021 Active 1000 mg (1,000 mg) by tabletIndications: mouth 2 times Atrophic vaginitis, daily For one day Screen for colon at start of cancer, Seasonal outbreak allergies, Chronic rhinitis, Vaginal dryness, Recurrent cold sores, Vitamin D deficiency alendronate (FOSAMAX) Take 1 tablet (70 12 tablet 3 10/30/2021 Active 70 MG mg) by mouth every tabletIndications: 7 days Age-related osteoporosis without current pathological fracture nystatin (MYCOSTATIN) APPLY 1 0 10/29/2021 Active [id number] UNIT/GM APPLICATION TWICE external ointment A DAY TOPICALLY CORNERS OF MOUTH triamcinolone Apply topically 2 30 g 0 06/19/2022 Active (KENALOG) 0.1 % times daily external creamIndications: Rash Active Problems Problem Noted Date DDD (degenerative disc disease), lumbar 01/08/2021 Acute bilateral low back pain with right-sided sciatic a 09/02/2020 Primary osteoarthritis of both hips 09/02/2020 Localized osteoporosis without current pathological fr acture 09/02/2020 Dermatochalasis of both lower eyelids 12/11/2019 Overview: Added automatically from request for tiffanie wick [id number] Vitreous degeneration, right 07/24/2019 Asymmetrical sensorineural hearing loss 02/16/2019 Uterine leiomyoma 04/20/2018 Overview: Overview: Added automatically from request for tiffanie wick [id number] ACP (advance care planning) 04/15/2015 Overview: Advance Care Planning 04/21/2016: Receipt of ACP document: Received: Health Care Directive which was witnessed or notarized on 12-23-15. Document previously scanned on 01-21-16. Validation form completed a nd sent to be scanned. Code Status needs to be updated to reflect choices in most recent ACP document Confirmed/documented designated decision maker(s). Added by Aleena Mcknight RN Advance Care Planning Liaison with [facility] Advance Care Planning 04/15/2015: Receipt of ACP document: Received: Health Care Directive which was witnessed or notarized on 12/11/10. Document previously scanned on 03/28/15. Validation form completed a nd sent to be scanned. Code Status needs to be updated to reflect choices in most recent ACP document. Confirmed/documented designated decision maker(s). Added by Abel Guillen Disorder of bone and cartilage 01/08/2015 Overview: Problem list name updated by automated p rocess. Provider to review Lump or mass in breast 12/06/2013 Hypertension 08/15/2012 Osteopenia 08/15/2012 Atrophic vaginitis 08/15/2012 Varicose veins of lower extremity 05/02/2012 Anal fissure 05/02/2012 Tinnitus of both ears 04/21/2012 Urinary retention 04/02/2011 Urinary urgency 04/02/2011 CARDIOVASCULAR SCREENING; LDL GOAL LESS THAN 130 08/03 Elevated glucose Hyperlipidemia Overview: ASCVD risk 8.1%, declines statin Resolved Problems Problem Noted Date Resolved Date Low back pain 09/04/2020 09/08/2020 Lumbar radiculopathy 09/04/2020 09/08/2020 Muscle weakness 10/07/2012 06/29/2019 Mixed stress and urge urinary incontinence 10/07/2012 06/29/2019 Anxiety state 04/21/2012 11/27/2013 Overview: Problem list name updated by daina armenta. Provider to review Mixed incontinence urge and stress (male)(female) 04/02/2011 04/27/2017 Vitamin D deficiency 04/27/2017 Encounters Date Type Specialty Care Team Description 07/16/2022 Telephone Internal Medicine Margot Branham MD Pain (L breast pain) 07/15/2022 Travel 06/19/2022 Office Visit Internal Medicine Alonso Tejeda MD Rash (Primary Dx) 06/19/2022 Travel 06/19/2022 Telephone Internal Medicine Margot Branham MD from Last 3 Months Immunizations Name Administration Dates Next Due COVID-19,PF,Moderna 09/02/2021 COVID-19,PF,Pfizer (12+ Yrs) 12/30/2020, 12/09/2020 DT (PEDS <7y) 02/08/1986 DTaP, Unspecified 06/30/2017 FLU 6-35 months 06/14/2020, 07/25/2007, 07/08/2006, 2005, 09/17/2004, 08/04/2003 Flu 65+ Years 07/26/2018, 06/30/2017 Flu, Unspecified 08/23/2002, 08/04/2001, 07/28/1999, 07/31/1997, 06/23/1995, 10/08/1994, 07/16/1993 HepA-Adult 10/02/2003, 02/12/2003 HepB-Adult 10/02/2003, 03/28/2003, 02/12/2003 Influenza (H1N1) 10/03/2009 Influenza (High Dose) 3 valent 07/12/2019, 06/04/2018, 06/23, vaccine 06/11/2015 Influenza (IIV3) PF 09/24/2011, 06/16/2009, 08/17/2008 Influenza Vaccine IM > 6 months 05/17/2014 Valent IIV4 (Alfuria,Fluzone) Influenza, Quad, High Dose, Pf, 65yr+ 07/20/2021 (Fluzone HD) LYMERIX 05/04/2001, 02/24/1999, 12/19/1998 Mantoux Tuberculin Skin Test 01/10/2016, 04/30/2011, 011 Pneumo Conj 13-V (2010&after) 01/07/2015 Pneumococcal 23 valent 10/30/2021, 11/27/2013 Rabies - IM Diploid Cell Culture 05/01/2003, 04/10/2003, 10/2002 Rabies, Unspecified 05/01/2003, 04/10/2003, 04/03/2003 TDAP Vaccine (Adacel) 04/28/2007 TDAP Vaccine (Boostrix) 09/24/2010 Td (Adult), Adsorbed 09/22/1999 Tdap (Adacel,Boostrix) 06/30/2017 Typhoid IM 04/28/2007, 10/02/2003 Yellow Fever 05/01/2003 Zoster vaccine recombinant adjuvanted 06/03/2018, 03/29/2018 (SHINGRIX) Zoster vaccine, live 09/23/2009 Family History Medical History Relation Comments Other - See Comments Brother MVA Colon Cancer Cousin Cardiovascular Father CHF age 79, hx of PE and HTN Colon Polyps Father Hypertension Father Hypertension Maternal Grandfather Myocardial Infarction Maternal Grandfather of [place] Cancer Maternal Grandmother of pancreatic cancer Hypertension Maternal Grandmother Colon Cancer Maternal Great-Grandfather Cancer - colorectal Mother colon polyps, a ge 93 Colon Cancer Mother Colon Polyps Mother Hypertension Mother Colon Cancer Paternal Aunt Pneumonia Paternal Grandfather age 70 after f kristen Cardiovascular Paternal Grandmother age 65 of hear t problems Hypertension Paternal Grandmother Colon Cancer Paternal Uncle Aneurysm Sister 1 brain No Known Problems Sister 2 Glaucoma Sister 3 Brought on by eye tr auma. Parkinsonism Sister 3 Hx TBI, MVA Cancer Sister 4 uterine cancer Other Cancer Sister 4 No Known Problems Son Macular Degeneration No family hx of Relation Status Comments Brother (Age 55) MVA Cousin (Age 76) maternal cousin of colon cancer age 75 Father CHF Maternal Grandfather (Age 82) Maternal Grandmother (Age 84) Maternal Great-Grandfather age 65 Mother colon CA Paternal Aunt age 65 of colon cancer Paternal Grandfather (Age 70) Paternal Grandmother (Age 65) Paternal Uncle of colon cancer age 90 Sister 1 Alive 65 in 2016 Sister 2 Alive 73 in 2016 Sister 3 Alive 74 in 2016 Sister 4 Alive 77 in 2016 Son Alive Social History Tobacco Use Types Packs/Day Years [...] was confirmed or suspected to have Coronavirus/COVID-19? Last Filed Vital Signs Vital Sign Reading Time Taken Comments Blood Pressure 132/72 06/19/2022 2:11 PM 2nd reading CDT Pulse 71 06/19/2022 2:10 PM CDT Temperature 36.9 ??C (98.5 ??F) 06/19/2022 2:10 PM CDT Respiratory Rate 16 04/24/2022 9:20 AM CDT Oxygen Saturation 98% 06/19/2022 2:10 PM CDT Inhaled Oxygen Concentration - - Weight 67.9 kg (149 lb 12.8 06/19/2022 2:10 PM oz) CDT Height 168.9 cm (5' 6.5) 06/19/2022 2:10 PM CDT Body Mass Index 23.82 06/19/2022 2:10 PM CDT Plan of Treatment Upcoming Encounters Date Type Specialty Care Team Description 09/10/2022 Office Visit Internal Medicine Logeais, MD Margot [address] [id number] (Wo rk) Health Maintenance Due Date Last Done Comments ANNUAL REVIEW OF HM ORDERS 1945 CT COLONOGRAPHY 1945 FIT-DNA (Cologuard) 1945 FIT 1945 FLEX SIG 1945 COVID-19 Vaccine (5 - 02/28/2022 01/03/2022, 09/02/2021, Booster for Pfizer series) 12/30/2020, Additiona l history exists INFLUENZA VACCINE (#1) 2022 07/20/2021, 06/14/2020, 07/12/2019, Additional history exists FALL RISK ASSESSMENT 10/30/2022 10/30/2021, 05/29/2020, 08/17/2019, Additional history exists MEDICARE ANNUAL WELLNESS 10/30/2022 10/30/2021, 08/17/2019, VISIT 03/29/2018, Additional history exists MAMMO SCREENING 11/13/2023 11/13/2021, 09/10/2020, 09/05/2019, Additional history exists ADVANCE CARE PLANNING 08/17/2024 08/17/2019, 04/21/2016, 04/15/2015, Additional history exists COLONOSCOPY 07/01/2025 07/01/2020, 05/29/2015 COLORECTAL CANCER SCREENING 07/01/2025 LIPID 10/30/2026 10/30/2021, 09/02/2020, 04/10/2019, Additional history exists DTAP/TDAP/TD IMMUNIZATION 06/30/2027 06/30/2017, 06/30/2017 , (4 - Td or Tdap) 09/24/2010, Additional history exists DEXA 07/01/2035 07/01/2020, 11/23/2019, 11/23/2019, Additional history exists HEPATITIS B IMMUNIZATION Completed 10/02/2003, 03/28/2003, 02/12/2003 HEPATITIS C SCREENING Completed 04/13/2016 ZOSTER IMMUNIZATION Completed 06/03/2018, 03/29/2018, 09/23/2009 PHQ-2 (once per calendar Completed 10/30/2021, 12/09/2020, year) 09/02/2020, Additional history exists Pneumococcal Vaccine: 65+ Completed 10/30/2021, 01/07/2015 , Years 11/27/2013 IPV IMMUNIZATION Aged Out No longer eligi ble based on patient 's age to complete this topic MENINGITIS IMMUNIZATION Aged Out No longe r eligible based on patient 's age to complete this topic Medical Devices Implanted Type Area Recoverer Device Shelf Model / Identifier Expiration Serial / Lot Date Eye Imp Iol [place] Pcl Tecnis Zcb00 20.0 Lens/Eye Right: Eye ADVANCED 04/01/2022 ZCB00 20.0 / Implanted: Qty: 1 on 07/18/2018 by Martinez Galicia MD at [facility] Implant MEDICAL OPT [id number] / Eye Imp Iol [place] Pcl Tecnis Zcb00 21.5 Lens/Eye Left: Eye ADVANCED 03/18/2022 ZCB00 21.5 / Implanted: Qty: 1 on 07/25/2018 by Martinez Galicia MD at [facility] Implant MEDICAL OPT [id number] / Stimulator Neuro Inter-Stim Ii 3058 Neurology Left: [employer] 07/01/2018 3058 / Implanted: Qty: 1 on 04/27/2017 by Carlota Landeros MD at [facility] device Buttocks [id number] / Medical Assistant Cardiology Interstim 3037 [employer] 3037 / Implanted: Qty: 1 on 05/19/2011 at [facility] / [id number] Description: not an implant Sling Urology Mini Arc Precise [id number] N/A: Urethra [employer] 01/01/2018 [id number] / Implanted: Qty: 1 on 03/26/2015 by Eliu Styles MD at [facility] / [id number] Procedures Procedure Name Priority Date/Time Associated Comments Diagnosis ORTHOPOXVIRUS Routine 06/19/2022 2:43 PM Rash Results for this (INCLUDES MONKEYPOX) CDT procedu re are in BY PCR the results section. from Last 3 Months Results Orthopoxvirus (includes monkeypox) by PCR (06/19/2022 2:43 PM CDT) [facility] Method Time Signature Orthopoxvirus by Not Detected 06/24/2022 [facility] 10:02 AM CDT Comment: NOT DETECTED - A negative result does no t rule out the presence of PCR inhibitors in the patien t specimen or assay specific nucleic acid in concentrations below the level of detection by the assay. INTERPRETIVE INFORMATION: Orthopoxvirus by PCR This assay does not differentiate member s of the orthopoxviruses. In the [place], a detected result is most likely due to monkeypox virus or va ccinia virus. Other orthopoxviruses may be considered if tre ropriate. Refer to the [place] Centers for Disease Control and P revention if additional confirmatory testing is neede d. This test was developed and its performa nce characteristics determined by [facility]. It has not been cleared or approved by the [place] Food and Drug Adminis tration. This test was performed in a CLIA certified labora tory and is intended for clinical purposes. Performed by [facility], [address] [place] [address] [email or web address], Timbo Robertson MD, PHD, Lab. Director Specimen Anatomical Collection Method Collection Time Receive d Time (Source) Location / / Volume Laterality Swab STRUCTURE OF LEFT Non-blood 06/19/2022 2:43 PM 06/04 2:54 UPPER LIMB / Collection / CDT PM CDT Unknown Unknown Alonso Tejeda MD LAB - MICRO GENERAL ORDERABL ES Performing Organization Address City/State/ZIP Code Phon e Number [facility] [place], [place] [phone] [address] [facility] [phone] from Last 3 Months Insurance Payer Benefit Plan / Subscriber ID Effective Phone Address T ype Group Dates [employer] [employer] [id number] 2021-Prese [phone] [address] [facility] nt [address] [place], [place] ADVANTAGE [phone] Kori,Yamileth Personal/Famil Self 1945 [id number] (Home) [place] [address] Advance Directives For more information, please contact: [phone] Documents on File Type Date Recorded Patient Cell Attendant Explanati on Advance Directives and 01/21/2016 8:13 AM Health Care Directive Living Will 12-23-15 Advance Directives and 03/28/2015 6:01 AM HEALTH CARE DIRECTIVE Living Will 12-11-2010 Power of Learning Support Specialist 03/27/2015 8:49 PM POWER OF AT [place] 12/11/10 Care Teams Customer Engineering Specialist Relationship Specialty Start Date End Date Margot Branham MD PCP - General Internal Medicine 10/28/[address] [place] [address] [phone] Carlota Landeros MD MD Urology 04/10/[address] [place], [place] [phone] Michelle Montana, MODESTA Registered Nurse Urology 05/07/17 Anh Costa APRN ELECTROPHONIC ENGINEER Nurse Practitioner Nurse Practitioner 10/07 Martinez Galicia MD MD Ophthalmology 04/18/18 [address] [place], [place] [phone] Sabino Romano DPM MD Podiatry 08/11/[address] [phone] Mehreen Johnston MD PhD MD Family Practice 11/15/[address] [place] [address] [phone] Margot Branham MD MD Internal Medicine 04/17/[address] [place] [address] [phone] Margot Branham MD Assigned PCP 09/15/[address] [place] [address] [phone] Alonso Tejeda MD MD Internal Medicine 06/19/[address] [place] [address]
--- OUTSIDE RECORDS SUMMARY | 2022-07-30 19:21 | XMS_ITS | Encounter Summary ---
:1945 Author Organization [place] Address [address] [place] [address]. [place] [address] Care Team Providers Name Role Phone Carlota Landeros MD Unavailable Michelle Montana RN Unavailable Anh Costa WATER SPONGER MANUFACTURING SYSTEMS ENGINEER Unavailable Unavailable Martinez Galicia MD Unavailable Sabino Romano DPM Unavailable Mehreen Johnston MD PhD Unavailable [phone] Margot Branham MD Unavailable Margot Branham MD Unavailable Margot Branham MD Primary Care Provider Encounter Details Date Type Department Care Team Description 10/30/2021 Travel Social History Tobacco Use Types Packs/Day [...] with No / Unsure 10/30/2021 8:37 AM NATIONAL SALES CONSULTANT someone who was confirmed or suspected to have Coronavirus / COVID-19? documented as of this encounter Plan of Treatment Upcoming Encounters Date Type Specialty Care Team Description 09/10/2022 Office Visit Internal Medicine LogMargot sadler MD [address] [place] [phone] (Wo rk) documented as of this encounter Visit Diagnoses Not on filedocumented in this encounter Additional Health Concerns Assessment Noted Time PHQ-9 Depression Total Score: 0 11/22/2019 10:49 AM CS T documented as of this encounter Care Teams Mechanical Systems Control Engineer Relationship Specialty Start Date End Date Margot Branham MD PCP - General Internal Medicine 10/28/[address] [place] [address] [phone] Carlota Landeros MD MD Urology 04/10/[address] [place] [address] Michelle Montana, RN Registered Nurse Urology 05/07/17 Anh Costa APRN MANUFACTURING SYSTEMS ENGINEER Nurse Practitioner Nurse Practitioner 10/07 Martinez Galicia MD MD Ophthalmology 04/18/[address] [place] [phone] Sabino Romano DPM MD Podiatry 08/11/[address] [phone] Mehreen Johnston MD PhD MD Family Practice 11/15/[address] [place] [address] Margot Branham MD MD Internal Medicine 04/17/[address] [place] [address] [phone] Margot Branham MD Assigned PCP 09/15/[address] [place] [address] documented as of this encounter
--- OUTSIDE RECORDS SUMMARY | 2022-07-30 19:21 | XMS_ITS | Encounter Summary ---
:1945 Author Organization [place] Address [address] [place] [address]. [place] [address] Care Team Providers Name Role Phone Carlota Landeros MD Unavailable Michelle Montana RN Unavailable Anh Costa DIRECTOR OF RETAIL POTATO LOADER Unavailable Unavailable Martinez Galicia MD Unavailable Sabino Romano DPM Unavailable Mehreen Johnston MD PhD Unavailable [phone] LogeaDeep man MD Unavailable LogeaDeep man MD Unavailable LogDeep sadler MD Primary Care Provider Reason for Visit Reason Onset Date Comments Medication Question 01/22/2022 Encounter Details Date Type Department Care Team Description 01/22/2022 Telephone [facility] Urgent Mae Wilkinson, Medication Question Care [place] TOP POLISHER [address] [place] [address] 55 001 [phone] Social History Tobacco Use Types Packs/Day Years [...] this encounter Miscellaneous Notes Telephone Encounter - Mae Wilkinson NP - 01/22/2022 6:46 PM CDT Sent diflucan in per request as we have done before for her antibiotic induced yeast infections. Telephone Encounter - Kenyatta Kruse - 01/22/2022 5:22 PM CDT Reason for Call: Medication or medication refill: Do you use a [facility] Pharm[facility]? Name of the pharmacy and phone number for the current request: [facility] Drug Name of the medication requested: fluconazole 150mg Other request: refill request for this medication Can we leave a detailed message on this number? YES Phone number patient can be reached at: Other phone number: [phone] Best Time: anytime. fax script or call pharmacist Call taken on 01/22/2022 at 5:22 PM by Kenyatta Kruse documented in this encounter Plan of Treatment Upcoming Encounters Date Type Specialty Care Team Description 09/10/2022 Office Visit Internal Medicine Deep Branham MD [address] [place] [phone] (Wo rk) documented as of this encounter Visit Diagnoses Diagnosis Antibiotic-induced yeast infection - Kristina deep documented in this encounter Additional Health Concerns Assessment Noted Time PHQ-9 Depression Total Score: 0 11/22/2019 10:49 AM CS T documented as of this encounter Care Teams Tensile Tester Relationship Specialty Start Date End Date Deep Branham MD PCP - General Internal Medicine 10/28/[address] [place] [address] Carlota Landeros MD MD Urology 04/10/[address] [place], [place] [address] Michelle Montana, RN Registered Nurse Urology 05/07/17 Anh Costa, DIRECTOR OF RETAIL POTATO LOADER Nurse Practitioner Nurse Practitioner 10/07 Martinez Galicia MD MD Ophthalmology 04/18/18 [address] [place], [place] [phone] Sabino Romano DPM MD Podiatry 08/11/[address] [phone] Mehreen Johnston MD PhD MD Family Practice 11/15/[address] [place] [address] [phone] Depe Branham MD MD Internal Medicine 04/17/[address] [place] [address] [phone] Deep Branham MD Assigned PCP 09/15/[address] [place] [address] [phone] documented as of this encounter
--- OUTSIDE RECORDS SUMMARY | 2022-07-30 19:21 | XMS_ITS | Encounter Summary ---
:1945 Author Organization [facility] Address [address] [place] [address]. [place] [address] Care Team Providers Name Role Phone Carlota Landeros MD Unavailable Michelle Montana RN Unavailable Anh Costa MANUAL ARTS THERAPIST MATH AND SCIENCE INSTRUCTOR Unavailable Unavailable Martinez Galicia MD Unavailable Sabino Romano DPM Unavailable Mehreen Johnston MD PhD Unavailable [phone] Margot Branham MD Unavailable Margot Branham MD Unavailable Margot Branham MD Primary Care Provider Encounter Details Date Type Department Care Team Description 04/24/2022 Travel Social History Tobacco Use Types Packs/Day [...] Office Visit Internal Medicine LogeaMargot man MD [address] [place] [address] (Wo rk) documented as of this encounter Visit Diagnoses Not on filedocumented in this encounter Additional Health Concerns Assessment Noted Time PHQ-9 Depression Total Score: 0 11/22/2019 10:49 AM CS T documented as of this encounter Care Teams Drawing Box Tender Relationship Specialty Start Date End Date Margot Branham MD PCP - General Internal Medicine 10/28/[address] [place] [address] Carlota Landeros MD MD Urology 04/10/[address] [place] [address] Michelle Montana, RN Registered Nurse Urology 05/07/17 Ahn Costa APRN MATH AND SCIENCE INSTRUCTOR Nurse Practitioner Nurse Practitioner 10/07 Martinez Galicia MD MD Ophthalmology 04/18/18 [address] [place] [address] Sabino Romano DPM MD Podiatry 08/11/[address] [phone] Mehreen Johnston MD PhD MD Family Practice 11/15/[address] [place] [address] Margot Branham MD MD Internal Medicine 04/17/[address] [place] [address] Margot Branham MD Assigned PCP 09/15/[address] [place] [address] documented as of this encounter
--- OUTSIDE RECORDS SUMMARY | 2022-07-30 19:21 | XMS_ITS | Encounter Summary ---
:1945 Author Organization [place] Address [address] [place] [address]. [place] [address] Care Team Providers Name Role Phone Carlota Acuña MD Unavailable Michelle Montana RN Unavailable Anh Costa MARKETING AGENT SALON PROFESSIONAL Unavailable Unavailable Martinez Galicia MD Unavailable Sabino Romano DPM Unavailable Mehreen Johnston MD PhD Unavailable [phone] Margot Branham MD Unavailable Margot Branham MD Unavailable Margot Branham MD Primary Care Provider Reason for Referral Therapeutic Procedure Only (Routine: Next available opening) - Pending Review Specialty Diagnoses / Procedures Referred By Contact Refer red To Contact Diagnoses Menopausal syndrome (hot flashes) Margot Branham MD [address] [place] [address] [phone] Referral ID Status Reason Start Date Expiration Date Visits V isits Requested Authorized [id number] Pending 04/24/2022 04/24/2023 1 1 Review Reason for Visit Reason Comments Night Sweats Encounter Details Date Type Department Care Team Description 04/24/2022 Office Visit [facility] Margot Branham MD Menopausal syndrome (hot flashes) (Prima ry Dx); Clinic Internal [address] Abnormal findings on diagnostic imaging of other specified body structures Medicine [address] [place], [place] 4th Floor [address] [place], [place] [phone] [address] (Work) [phone] Social History Tobacco Use Types Packs/Day Years [...] have Coronavirus/COVID-19? documented as of this encounter Last Filed Vital Signs Vital Sign Reading Time Taken Comments Blood Pressure 129/82 04/24/2022 9:20 AM CDT Pulse 67 04/24/2022 9:20 AM CDT Temperature - - Respiratory Rate 16 04/24/2022 9:20 AM CDT Oxygen Saturation 97% 04/24/2022 9:20 AM CDT Inhaled Oxygen Concentration - - Weight 67.2 kg (148 lb 1.6 oz) 04/24/2022 9:20 AM CDT Height 168.9 cm (5' 6.5) 04/24/2022 9:20 AM CDT Body Mass Index 23.55 04/24/2022 9:20 AM CDT documented in this encounter Patient Instructions Patient InstructionsLogMargot sadler MD - 04/24/2022 9:30 AM CDT TIP Skills: Paced Breathing - YouTube Paced Breathing: A Way to Reduce Tension and Stress (va.gov) documented in this encounter Progress Notes Margot Branham MD - 04/24/2022 9:30 AM CDT History of Present Illness: Ms. Sheikh is a 76 year old female who presents for Chief Complaint Patient presents with ??? Night Sweats PMH of ALEKS, lumbar radiculopathy, osteoporosis, angular chelitis, recent UTI, varicose veins with sclerotherapy 04/23, HTN, HLD. Reports getting hot flashes, night sweats. Mostly at night. Consistent since menopause. No fevers, chills, no weight loss, no anorexia. No new pains. No change in meds. No recent illnesses. No GI symptoms, skin symptoms, urinary symptoms, respiratory symptoms. Taking estrogen--vaginal ring and cream. Previously on effexor a long time ago. She is wondering about timed breathing/paced respiration. Routine Health Maintenence: Lung Ca Screening (>20 pk age 50-80): not indicated, not smoker Colonoscopy (45-75 yrs): Last 05/18 [place], normal, no specimens Dexa (>65W or 70M yrs): due 06/25 at [place] Mammogram (40-75 yrs): 06/22 here, otherwise at [place], due Pap (21-65 yrs): Lab Results Component [...] RT/LT Breast Biopsy RT/LT ??? C/SECTION, CLASSICAL 1979 , Classical ??? CATARACT IOL, RT/LT Left [...] 11/01/2012; ??? [facility] TOTAL HIP ARTHROPLASTY Right 2005 right ??? ZZC TOTAL HIP ARTHROPLASTY Description: [...] glucosamine-chondroitin 500-400 MG CAPS per capsule ??? hydrocortisone, Perianal, (PROCTO-MED HC) 2.5 % cream ??? irbesartan (AVAPRO) 150 MG tablet ??? LYSINE PO ??? magnesium 100 MG CAPS ??? omega 3 1000 MG CAPS ??? OTHER MEDICAL SUPPLIES ??? polyethylene glycol (MIRALAX) 17 g packet ??? rosuvastatin (CRESTOR) 5 MG tablet ??? valACYclovir (VALTREX) 1000 mg tablet No [...] Drug use: No Physical Exam: Vitals: BP 129/82 (BP Location: Right arm, Patient Position: Sitting, Cuff Size: Adult Regular) Pulse 67 Resp 16 Ht 1.689 m (5' 6.5) Wt 67.2 kg (148 lb 1.6 oz) SpO2 97% No BMI 23.55 kg/m?? Constitutional: Alert, oriented, pleasant, no acute distress Head: Normocephalic, atraumatic Eyes: Extra-ocular movements intact, pupils equally round and reactive bilaterally, no scleral icterus ENT: Oropharynx clear, moist mucus membranes Neck: Supple, no lymphadenopathy Cardiovascular: Regular rate and rhythm, no murmurs, [...] affect and mood Diagnostics: Labs reviewed in [facility] Assessment and Plan: Yamileth was seen today for night sweats. Diagnoses and all orders for this visit: Menopausal syndrome (hot flashes) Low suspicion for other systemic illness (rheum, endo, infectious, malignant) given chronic time course and lack of any other symptoms. We reviewed EBM strategies for menopausal hot flashes. She would like to try breathing and acupunture. Also willing to try selective serotonin reuptake inhibitor. Advised to check back if symptoms worsen or do not improve. Will r/o other etiologies with labs. - TSH with free T4 reflex; Future - Estradiol; Future - CRP inflammation; Future - CBC with platelets differential; Future - UA with Micro reflex to Culture; Future - Comprehensive metabolic panel; Future - Acupuncture Referral; Future - citalopram (CELEXA) 10 MG tablet; Take 1 tablet (10 mg) by mouth daily - TSH with free T4 reflex; Future - CBC with platelets differential; Future Margot Branham MD Internal Medicine >30 minutes spent today performing chart review, history and exam, documentation and further activities as noted above. documented in this encounter Nursing Notes Taran Mata - 04/24/2022 9:30 AM CDT Yamileth Sheikh is a 76 year old female patient that presents today in clinic for the following: Chief Complaint Patient presents with ??? Night Sweats The patient's allergies and medications were reviewed as noted. A set of vitals were recorded as noted without incident: BP 129/82 (BP Location: Right arm, Patient Position: Sitting, Cuff Size: Adult Regular) Pulse 67 Resp 16 Ht 1.689 m (5' 6.5) Wt 67.2 kg (148 lb 1.6 oz) SpO2 97% No BMI 23.55 kg/m?? . The patient does not have any other questions for the provider. MARILOU Steward at 9:23 AM on 04/24/2022 documented in this encounter Plan of Treatment Upcoming Encounters Date Type Specialty Care Team Description 09/10/2022 Office Visit Internal Medicine Logeais, MD Margot [address] [address] (Wo rk) Scheduled Referrals Name Type Priority Associated Order Schedule Diagnoses Acupuncture Referral Referral Routine: Next Menopausal syndrome Expected: available opening (hot flashes) 2 (Approximate), Expires: 04/24/2023 documented as of this encounter Results UA with Micro reflex to Culture (04/24/2022 11:48 AM CDT) [facility] Method Time Signature Color Urine Yellow Colorless, [facility] 04/24/2022 [facility] Straw, Light 12:19 PM LABORATORY - Yellow, CDT CORE LAB Yellow Appearance Urine Clear Clear [facility] 04/24/2022 [facility] 12:19 PM LABORATORY - CDT CORE LAB Glucose Urine Negative Negative [facility] 04/24/2022 [facility] mg/dL 12:19 PM LABORATORY - CDT CORE LAB Bilirubin Urine Negative Negative [facility] 04/24/2022 [facility] 12:19 PM LABORATORY - CDT CORE LAB Ketones Urine Negative Negative JAK[facility] 04/24/2022 [facility] mg/dL 12:19 PM LABORATORY - CDT CORE LAB Specific [place] 1.020 1.003 - JAKUB 04/24/2022 [facility] Urine 1.035 12:19 PM LABORATORY - CDT CORE LAB Blood Urine Negative Negative [facility] 04/24/2022 [facility] 12:19 PM LABORATORY - CDT CORE LAB pH Urine 5.0 5.0 - 7.0 [facility] 04/24/2022 [facility] 12:19 PM LABORATORY - CDT CORE LAB Protein Albumin Negative Negative [facility] 04/24/2022 [facility] Urine mg/dL 12:19 PM LABORATORY - CDT CORE LAB Urobilinogen Normal Normal, 2.0 [facility]AK[facility] 04/24/2022 [facility] Urine mg/dL 12:19 PM LABORATORY - CDT CORE LAB Nitrite Urine Negative Negative [facility] 04/24/2022 [facility] 12:19 PM LABORATORY - CDT CORE LAB Leukocyte Negative Negative JAKUB 04/24/2022 [facility] Esterase Urine 12:19 PM LABORATORY - CDT CORE LAB Bacteria Urine None Seen None Seen 04/24/2022 [facility] /[facility] 12:19 PM LABORATORY - CDT CORE LAB RBC Urine 0 <=2 /HPF 04/24/2022 [facility] 12:19 PM LABORATORY - CDT CORE LAB WBC Urine <1 <=5 /HPF 04/24/2022 [facility] 12:19 PM LABORATORY - CDT CORE LAB Specimen Anatomical Collection Method Collection Time Receive d Time (Source) Location / / Volume Laterality Urine MID-STREAM URINE Non-blood 04/24/2022 11:48 022 SPECIMEN / Unknown Collection / AM CDT 11:48 AM CDT Unknown Narrative [facility] LABORATORY - CORE LAB - 04/24/2022 12:19 PM CDT Urine Culture not indicated Margot Branham MD LAB - URINE ORDERABLES Performing Organization Address [facility]/State/[facility] Phon e Number [facility] LABORATORY - CORE LAB [facility] [place] [address] 1st Floor Lab Core Lab [facility] LABORATORY - CORE LAB [place], [place] [address] Clinics and Surgery [address] 1st Floor Lab Core Lab (ABNORMAL) Comprehensive metabolic panel (04/24/2022 11:01 AM CDT) [facility] Method Time Signature Sodium 141 133 - 144 04/24/2022 [facility] mmol/L 11:24 AM CDT LABORATORY - CORE LAB Potassium 4.5 3.4 - 5.3 04/24/2022 [facility] mmol/L 11:24 AM CDT LABORATORY - CORE LAB Chloride 109 94 - 109 04/24/2022 [facility] mmol/L 11:24 AM CDT LABORATORY - CORE LAB Carbon Dioxide 25 20 - 32 04/24/2022 [facility] (CO2) mmol/L 11:24 AM CDT LABORATORY - CORE LAB Anion Gap 7 3 - 14 04/24/2022 [facility] mmol/L 11:24 AM CDT LABORATORY - CORE LAB Urea Nitrogen 20 7 - 30 04/24/2022 [facility] mg/dL 11:24 AM CDT LABORATORY - CORE LAB Creatinine 0.75 0.52 - 04/24/2022 [facility] 1.04 mg/dL 11:24 AM CDT LABORATORY - CORE LAB Calcium 9.0 8.5 - 10.1 04/24/2022 [facility] mg/dL 11:24 AM CDT LABORATORY - CORE LAB Glucose 103 (H) 70 - 99 04/24/2022 [facility] mg/dL 11:24 AM CDT LABORATORY - CORE LAB Alkaline 77 40 - 150 04/24/2022 [facility] Phosphatase U/L 11:24 AM CDT LABORATORY - CORE LAB AST 22 0 - 45 U/L 04/24/2022 [facility] 11:24 AM CDT LABORATORY - CORE LAB ALT 25 0 - 50 U/L 04/24/2022 [facility] 11:24 AM CDT LABORATORY - CORE LAB Protein Total 6.9 6.8 - 8.8 04/24/2022 [facility] g/dL 11:24 AM CDT LABORATORY - CORE LAB Albumin 3.8 3.4 - 5.0 04/24/2022 [facility] g/dL 11:24 AM CDT LABORATORY - CORE LAB Bilirubin Total 0.5 0.2 - 1.3 04/24/2022 [facility] mg/dL 11:24 AM CDT LABORATORY - CORE LAB GFR Estimate 83 >60 04/24/2022 [facility] mL/min/1.7 11:24 AM CDT LABORATORY - 3m2 CORE LAB Comment: Effective September 23, 2021 eGF Rcr in adults is calculated using the 2020 CKD-EPI creatinine equation which includ es age and gender (Graphic Art Technician et al., NEJ, DOI: 10.1056/WCUZud7610099) Specimen Anatomical Collection Method / Collection Time Recei yenny Time (Source) Location / Volume Laterality Blood STRUCTURE OF LEFT Venipuncture / 04/24/2022 11:01 04/04 UPPER LIMB / Unknown AM CDT 11:02 AM CDT Unknown Margot Branham MD LAB - BLOOD ORDERABLES Performing Organization Address City/State/ZIP Code Phon e Number [facility] LABORATORY - CORE LAB [facility] [place] [address] Lab Core Lab [facility] LABORATORY - CORE LAB [place], [place] [address] Clinics and Surgery [address] Floor Lab Core Lab CRP inflammation [...] LAB - BLOOD ORDERABLES Performing Organization Address City/State/[facility] Code Phon e Number [facility] LABORATORY - CORE LAB [facility] Clinics [facility] [place] [address] Lab Core Lab [facility] LABORATORY - CORE LAB [place], [place] [address] Clinics and Surgery [address] Floor Lab Core Lab Estradiol (04/24/2022 11:01 AM CDT) athologist Signature Estradiol <5 pg/mL 04/24/2022 6:10 [facility] LABORATORY PM CDT Comment: Healthy Men: 11.3-43.2 pg/mL Healthy Postmenopausal Women: Postmenopause: <5-138 pg/mL Healthy Women: 1st trimester: 154-3243 pg/mL 2nd trimester: 1561-16466 pg/mL 3rd trimester: 8525->42957 pg/mL Healthy Women Cycle Phase: Follicular: 30.9-90.4 [...] Address City/State/ZIP Code Phon e Number LABORATORY [facility] [place] [address] Lab [address] [facility] [address] Building, Room 3-580 TSH with free T4 reflex (04/24/2022 11:01 AM CDT) athologist Signature TSH 0.74 0.40 - 4.00 04/24/2022 [facility] LABORATORY mU/L 11:31 AM CDT - CORE LAB Specimen Anatomical Collection Method / Collection Time Recei yenny Time (Source) Location / Volume Laterality Blood STRUCTURE OF LEFT Venipuncture / 04/24/2022 11:01 04/04 UPPER LIMB / Unknown AM CDT 11:02 AM CDT Unknown Margot Branham MD LAB - BLOOD ORDERABLES Performing Organization Address City/State/ZIP Code Phon e Number [facility] LABORATORY - CORE LAB [facility] [place] [address] Floor Lab Core Lab [facility] LABORATORY - CORE LAB [place], [place] [address] Clinics and Surgery [address] 1st Floor Lab Core Lab documented in this encounter Visit Diagnoses Diagnosis Menopausal syndrome (hot flashes) - Prim kitty Symptomatic menopausal or female climact froy states Abnormal findings on diagnostic imaging of other specified body structures documented in this encounter Additional Health Concerns Assessment Noted Time PHQ-9 Depression Total Score: 0 11/22/2019 10:49 AM CS T documented as of this encounter Care Teams Product Trainer Relationship Specialty Start Date End Date Margot Branham MD PCP - General Internal Medicine 10/28/[address] [place] [phone] Carlota Acuña MD MD Urology 04/10/[address] [place], [place] [phone] Michelle Montana, RN Registered Nurse Urology 05/07/17 Anh Costa, MARKETING AGENT SALON PROFESSIONAL Nurse Practitioner Nurse Practitioner 10/07 Martinez Galicia MD MD Ophthalmology 04/18/18 [address] [place], [place] [phone] Sabino Romano DPM MD Podiatry 08/11/[address] [phone] Mehreen Johnston MD PhD MD Family Practice 11/15/[address] [place] [address] [phone] Margot Branham MD MD Internal Medicine 04/17/[address] [place] [address] [phone] Margot Branham MD Assigned PCP 09/15/[address] [place] [address] [phone] documented as of this encounter
--- OUTSIDE RECORDS SUMMARY | 2022-07-30 19:21 | XMS_ITS | Encounter Summary ---
:1945 Author Organization [place] Address [address] [place] [address]. [place] [address] Care Team Providers Name Role Phone Carlota Landeros MD Unavailable Michelle Montana RN Unavailable Anh Costa SKIN DRIER DRAPERY CUTTER MACHINE Unavailable Unavailable Martinez Galicia MD Unavailable Sabino Romano DPM Unavailable Mehreen Johnston MD PhD Unavailable [phone] LogMargot sadler MD Unavailable Margot Branham MD Unavailable Margot Branham MD Primary Care Provider Alonso Tejeda MD Unavailable Encounter Details Date Type Department Care Team Description 06/19/2022 Travel Social History Tobacco Use Types Packs/Day [...] Office Visit Internal Medicine LogMargot sadler MD [address] [place] [address] [phone] (Wo rk) documented as of this encounter Visit Diagnoses Not on filedocumented in this encounter Additional Health Concerns Assessment Noted Time PHQ-9 Depression Total Score: 0 11/22/2019 10:49 AM CS T documented as of this encounter Care Teams Automobile Rental Clerk Relationship Specialty Start Date End Date Margot Branham MD PCP - General Internal Medicine 10/28/[address] [place] [address] [phone] Carlota Landeros MD MD Urology 04/10/[address] [place], [place] [address] Michelle Montana RN Registered Nurse Urology 05/07/17 Anh Costa APRN DRAPERY CUTTER MACHINE Nurse Practitioner Nurse Practitioner 10/07 Martinez Galicia MD MD Ophthalmology 04/18/18 [address] [place], [place] [address] Sabino Romano DPM MD Podiatry 08/11/[address] [phone] Mehreen Johnston MD PhD MD Family Practice 11/15/[address] [place] [address] [phone] Margot Branham MD MD Internal Medicine 04/17/[address] [place] [address] [phone] Margot Branham MD Assigned PCP 09/15/[address] [place] [address] [phone] Alonso Tejeda MD MD Internal Medicine 06/19/[address] [place] [phone] documented as of this encounter
--- OUTSIDE RECORDS SUMMARY | 2022-07-30 19:21 | XMS_ITS | Encounter Summary ---
:1945 Author Organization [place] Address [address] [place] [address]. [place] [address] Care Team Providers Name Role Phone Carlota Landeros MD Unavailable Michelle Montana RN Unavailable Anh Costa CONDITIONING MACHINE OPERATOR RESEARCH AND DEVELOPMENT TESTER Unavailable Unavailable Martinez Galicia MD Unavailable Sabino Romano DPM Unavailable Mehreen Johnston MD PhD Unavailable [phone] LogeaMargot man MD Unavailable LogMargot sadler MD Unavailable LogMargot sadler MD Primary Care Provider Encounter Details Date Type Department Care Team Description 10/17/2021 Orders Only [facility] Lisa Nur MD Urinary tract Urgent Care [place] [address] [place] [place] [address] hematuria, site [address] [facility] unspecified (Primary [place], [place] Dx) [id number] Social History Tobacco Use Types Packs/Day Years Used Date Smoking Tobacco: Never Smokeless Tobacco: Never Alcohol Use Standard Drinks/Week Comments Yes 0 (1 standard drink = 0.6 oz pure alcoho l) wine few times/wk Sex Assigned at Date Recorded Female 12/20/2018 4:10 PM CDT COVID-19 Exposure Response Date Recorded In the last month, have you been in contact with No / Unsure 10/13/2021 4:17 PM ARM MAKER someone who was confirmed or suspected to have Coronavirus / COVID-19? documented as of this encounter Plan of Treatment Upcoming Encounters Date Type Specialty Care Team Description 09/10/2022 Office Visit Internal Medicine Margot Branham MD [address] [place] [address] [phone] (Wo rk) documented as of this encounter Visit Diagnoses Diagnosis Urinary tract infection without hematuri a, site unspecified - Primary documented in this encounter Additional Health Concerns Assessment Noted Time PHQ-9 Depression Total Score: 0 11/22/2019 10:49 AM CS T documented as of this encounter Care Teams Rn Teacher Relationship Specialty Start Date End Date Margot Branham MD PCP - General Internal Medicine 10/28/[address] [place] [phone] Carlota Landeros MD MD Urology 04/10/[address] [place] [address] Michelle Montana, RN Registered Nurse Urology 05/07/17 Anh Costa APRN RESEARCH AND DEVELOPMENT TESTER Nurse Practitioner Nurse Practitioner 10/07 Martinez Galicia MD MD Ophthalmology 04/18/18 [address] [place], [place] [phone] Sabino Romano DPM MD Podiatry 08/11/18 [facility] [address] [phone] Mehreen Johnston MD PhD MD Family Practice 11/15/[address] [place] [address] [phone] Margot Branham MD MD Internal Medicine 04/17/[address] [place] [phone] Margot Branham MD Assigned PCP 09/15/[address] [place] [address] [phone] documented as of this encounter
--- OUTSIDE RECORDS SUMMARY | 2022-07-30 19:21 | XMS_ITS | Encounter Summary ---
:1945 Author Organization [place] Address [address] [place] [address]. [place] [address] Care Team Providers Name Role Phone Carlota Landeros MD Unavailable Michelle Montana RN Unavailable Anh Costa COMPLIANCE MGR SILVICULTURE TEACHER Unavailable Unavailable Martinez Galicai MD Unavailable Sabino Romano DPM Unavailable Mehreen Johnston MD PhD Unavailable [phone] Margot Branham MD Unavailable Margot Branham MD Unavailable Margot Branham MD Primary Care Provider Encounter Details Date Type Department Care Team Description 01/23/2022 Travel Social History Tobacco Use Types Packs/Day [...] Office Visit Internal Medicine LogeaMargot man MD [address] [place] [phone] (Wo rk) documented as of this encounter Visit Diagnoses Not on filedocumented in this encounter Additional Health Concerns Assessment Noted Time PHQ-9 Depression Total Score: 0 11/22/2019 10:49 AM CS T documented as of this encounter Care Teams Lithographic Plate Maker Relationship Specialty Start Date End Date Margot Branham MD PCP - General Internal Medicine 10/28/[address] [place] [address] Carlota Landeros MD MD Urology 04/10/[address] [place] [address] Michelle Montana, RN Registered Nurse Urology 05/07/17 Anh Costa APRN SILVICULTURE TEACHER Nurse Practitioner Nurse Practitioner 10/07 Martinez Galicia MD MD Ophthalmology 04/18/18 [address] [place] [address] Sabino Romano DPM MD Podiatry 08/11/[address] [phone] Mehreen Johnston MD PhD MD Family Practice 11/15/[address] [place] [phone] Margot Branham MD MD Internal Medicine 04/17/[address] [place] [address] Margot Branham MD Assigned PCP 09/15/[address] [place] [phone] documented as of this encounter
--- OUTSIDE RECORDS SUMMARY | 2022-07-30 19:21 | XMS_ITS | Encounter Summary ---
:1945 Author Organization [facility] Address [address] [place] [address]. [place] [address] Care Team Providers Name Role Phone Carlota Landeros MD Unavailable Michelle Montana RN Unavailable Anh Costa GAS MAKER HELPER PRINTER REPAIR TECHNICIAN Unavailable Unavailable Martinez Galicia MD Unavailable Sabino Romano DPM Unavailable Mehreen Johnston MD PhD Unavailable [phone] LogeaMargot man MD Unavailable LogMargot sadler MD Unavailable LogMargot sadler MD Primary Care Provider Alonso Tejeda MD Unavailable Reason for Visit Reason Comments Derm Problem Itchy red spots on chest, ar ms, back. Started yesterday. May be insect bites. Patient has been outs genev[place] a lot with puppy recently. Encounter Details Date Type Department Care Team Description 06/19/[address] [facility] Brii Tejeda MD Rash (Primary Dx) Internal Medicine [address] [place] [address] [place] [address] Social History Tobacco Use Types Packs/Day Years [...] ??F) 06/19/2022 2:10 PM CDT Respiratory Rate - - Oxygen Saturation 98% 06/19/2022 2:10 PM CDT Inhaled Oxygen Concentration - - Weight 67.9 kg (149 lb 12.8 06/19/2022 2:10 PM oz) CDT Height 168.9 cm (5' 6.5) 06/19/2022 2:10 PM CDT Body Mass Index 23.82 06/19/2022 2:10 PM CDT documented in this encounter Patient Instructions Patient InstructionsAlonso Tejeda MD - 06/19/2022 2:00 PM CDT You can use an over the counter antihistamine such as cetirizine (Zyrtec), loratadine (Claritin), orfexofenadine (Joellen) to help with the itchiness. Let us know if symptoms worsen, and we can try a course of prednisone. documented in this encounter Progress Notes Alonso Tejeda MD - 06/19/2022 2:00 PM CDT Assessment & Plan Krystal Greene presents with pruritic rash of unclear etiology that started yesterday. Exam shows papules withsmall central vesicles. No known new exposures. She is concerned about monkeypox, though she doesn'thave risk factors and rash is not painful, so this seems less likely. She wanted to do testing to make sure, so swabs done. Will treat with triamcinolone and 2nd gen antihistamine. Consider course of prednisone if worsening. - Orthopoxvirus (includes monkeypox) by PCR - triamcinolone (KENALOG) 0.1 % external cream; Apply topically 2 times daily Alonso Tejeda MD [facility] [place] Shaila Greene is a 76 year old, presenting for the following health issues: Derm Problem (Itchy red spots on chest, arms, back. Started yesterday. May be insect bites. Patient has been outside a lot with puppy recently. ) HPI Ramona presents with itchy red spots on the arms and that started yesterrday. Rash is getting worse, new spots today. No pain. Having some slight clear drainage. No fevers or chills. She has tried hydrocortisone and lidocaine - some help. Taking ibuprofen, unsure if this was helpful. She was prescribed citalopram in April for hot flashes but she never started this due to concern overthe side effect. Has been outside with her puppy a lot recently. No other new medications or exposures. She has only been around a couple of family members and a friend, but they have had no rash. Review of Systems Constitutional, derm systems are negative, except as otherwise noted. Objective BP 132/72 (BP Location: Right arm, Patient Position: Sitting, Cuff Size: Adult Regular) Pulse 71 Temp 98.5 ??F (36.9 ??C) (Oral) Ht 1.689 m (5' 6.5) Wt 67.9 kg (149 lb 12.8 oz) SpO2 98% BMI 23.82 kg/m?? Body mass index is 23.82 kg/m??. Physical Exam GENERAL: healthy, alert and no distress SKIN: Scattered papules on arms and chest, some with central vesicle or scab documented in this encounter Nursing Notes Sabino Maciel - 06/19/2022 2:00 PM CDT Yamileth Sheikh is a 76 year old female that presents in clinic today for the following: Chief Complaint Patient presents with ??? Derm Problem Itchy red spots on chest, arms, back. Started yesterday. May be insect bites. Patient has been outside a lot with puppy recently. The patient's allergies and medications were reviewed. The patient's vitals were obtained without incident. The patient does not have any other questions for the provider. Sabino Maciel, EMT at 2:10 PM on 06/19/2022. Primary Care Clinic: [phone] documented in this encounter Plan of Treatment Upcoming Encounters Date Type Specialty Care Team Description 09/10/2022 Office Visit Internal Medicine Logeais, MD Margot [address] [id number] (Wo rk) documented as of this encounter Procedures Procedure Name Priority Date/Time Associated Comments Diagnosis ORTHOPOXVIRUS Routine 06/19/2022 2:43 PM Rash Results for this (INCLUDES MONKEYPOX) CDT procedu re are in BY PCR the results section. documented in this encounter Results Orthopoxvirus (includes monkeypox) by PCR (06/19/2022 2:43 PM CDT) [facility] Method Time Signature Orthopoxvirus by Not Detected 06/24/2022 Locate Special Diet PCR 10:02 AM CDT Comment: NOT DETECTED [...] and its performa nce characteristics determined by [facility]. It has not been cleared or approved by the [place] Food and Drug Adminis tration. This test was performed in a CLIA certified labora tory and is intended for clinical purposes. Performed by [facility], [address] [place] [address] [email or web address], Timbo Robertson MD, PHD, Lab. Director Specimen Anatomical Collection Method Collection Time Receive d Time (Source) Location / / Volume Laterality Swab STRUCTURE OF LEFT Non-blood 06/19/2022 2:43 PM 06/04 2:54 UPPER LIMB / Collection / CDT PM CDT Unknown Unknown Alonso Tejeda MD LAB - MICRO GENERAL ORDERABL ES Performing Organization Address City/State/ZIP Code Phon e Number [facility] [place], [place] [phone] [address] [facility] [phone] documented in this encounter Visit Diagnoses Diagnosis Rash - Primary Rash and other nonspecific skin eruption documented in this encounter Additional Health Concerns Assessment Noted Time PHQ-9 Depression Total Score: 0 11/22/2019 10:49 AM CS T documented as of this encounter Care Teams Hand Zipper Trimmer Relationship Specialty Start Date End Date Margot Branham MD PCP - General Internal Medicine 10/28/[address] [address] Carlota Landeros MD MD Urology 04/10/[address] [place], [place] [phone] Michelle Montana, RN Registered Nurse Urology 05/07/17 Anh Costa APRN PRINTER REPAIR TECHNICIAN Nurse Practitioner Nurse Practitioner 10/07 Martinez Galicia MD MD Ophthalmology 04/18/18 [address] [place], [place] [address] Sabino Romano DPM MD Podiatry 08/11/[address] [phone] Mehreen Johnston MD PhD MD Family Practice 11/15/19 909 [place], [place] [address] Margot Branham MD MD Internal Medicine 04/17/[address] [place] [phone] Margot Branham MD Assigned PCP 09/15/[address] [place] [address] [phone] Alonso Tejeda MD MD Internal Medicine 06/19/[address] [place] [phone] documented as of this encounter
--- OUTSIDE RECORDS SUMMARY | 2022-07-30 19:22 | XMS_ITS | Encounter Summary ---
:1945 Author Organization [facility] Address [address] [place] [address]. [place] [address] Care Team Providers Name Role Phone Carlota Landeros MD Unavailable Michelle Montana RN Unavailable Anh Costa BODY AND FENDER WORKER ADVANCE SCOUT Unavailable Unavailable Martinez Galicia MD Unavailable Sabino Romano DPM Unavailable Kyle Roberts MD Primary Care Provider Mehreen Johnston MD PhD Unavailable [phone] Margot Branham MD Unavailable Martinez Galicia MD Unavailable Reason for Visit Diagnostic Imaging XR (Routine) - Closed Specialty Diagnoses / Procedures Referred By Contact Refer red To Contact Diagnoses Acute bilateral low back pain with right-sided sciatica Margot Branham MD Procedures XR Lumbar Spine 2-3 Views [address] [address] Referral ID Status Reason Start Date Expiration Date Visits Requ ested Visits Authorized [id number] Closed 09/02/2020 09/02/2021 1 1 Encounter Details Date Type Department Care Team Description 09/02/[address] [facility] Margot Branham A cute bilateral low [facility] June OLIVEROS back pain with [place] [address] right-sided sciatica [address] [place] [id number] [phone] Social History Tobacco Use Types Packs/Day Years Used Date Smoking Tobacco: Never Smokeless Tobacco: Never Alcohol Use Standard Drinks/Week Comments Yes 0 (1 standard drink = 0.6 oz pure alcoho l) wine few times/wk Sex Assigned at Date Recorded Female 12/20/2018 4:10 PM CDT COVID-19 Exposure Response Date Recorded In the last month, have you been in contact with No / Unsure 09/02/2020 12:52 PM REFRIGERATION PLANT OPERATOR someone who was confirmed or suspected to have Coronavirus / COVID-19? documented as of this encounter Plan of Treatment Upcoming Encounters Date Type Specialty Care Team Description 09/10/2022 Office Visit Internal Medicine Logeais, MD Margot [address] [address] (Wo rk) documented as of this encounter Procedures Procedure Name Priority Date/Time Associated Diagnosis Comme nts XR LUMBAR SPINE 2/3 Routine 09/02/2020 3:12 PM Acute bilateral low Results for this VIEWS REFRIGERATION PLANT OPERATOR back pain with procedure are in right-sided sciatica the res ults section. documented in this encounter Results XR Lumbar Spine 2-3 Views (09/02/2020 3:12 PM REFRIGERATION PLANT OPERATOR) Anatomical Region Laterality Modality Spine, T-spine, L-spine, Abdomen/Pelvis Digital Radiography Specimen (Source) Anatomical Location Collection Method / Collectio n Time Received Time / Laterality Volume Impressions 09/02/2020 3:20 PM REFRIGERATION PLANT OPERATOR IMPRESSION: Multilevel disc space narrowing in the lumbar spine, greatest at L4-L5, where there is mild a nterolisthesis of L4 in relation to L5. No compression fractures . GILBERTO SHERIFF MD Narrative 09/02/2020 3:20 PM REFRIGERATION PLANT OPERATOR Exam: 2 views of the lumbar spine dated 09/02/2020. COMPARISON: None. CLINICAL HISTORY: Osteoporosis. FINDINGS: AP and lateral views of the kristen mbar spine were obtained. There are 5 lumbar type vertebral bodies for the purposes of this dictation. The lumbar vertebral bodies a re well-maintained without evidence of compression fracture. Marked multilevel disc space narrowing in the lumbar spine, greatest at L3-L4 and L4-L5. Mild anterolisthesis of L4 in relation to L5. Partially visualized right total hip arthroplasty. Stimulator type device overlying the left hemipelvis. Procedure Note Gilberto Sheriff MD - 09/02/2020Form atting of this note might be different from the original. Exam: 2 views of the lumbar spine dated 09/02/2020. COMPARISON: None. CLINICAL HISTORY: Osteoporosis. FINDINGS: AP and lateral views of the kristen mbar spine were obtained. There are 5 lumbar type vertebral bodies for the purposes of this dictation. The lumbar vertebral bodies a re well-maintained without evidence of compression fracture. Marked multilevel disc space narrowing in the lumbar spine, greatest at L3-L4 and L4-L5. Mild anterolisthesis of L4 in relation to L5. Partially visualized right total hip arthroplasty. Stimulator type device overlying the left hemipelvis. IMPRESSION: Multilevel disc space narrow ing in the lumbar spine, greatest at L4-L5, where there is mild a nterolisthesis of L4 in relation to L5. No compression fractures . GILBERTO SHERIFF MD Margot Branham MD IMG DIAGNOSTIC IMAGING ORDER FRIDA documented in this encounter Visit Diagnoses Diagnosis Acute bilateral low back pain with right -sided sciatica documented in this encounter Additional Health Concerns Assessment Noted Time PHQ-9 Depression Total Score: 0 11/22/2019 10:49 AM CS T documented as of this encounter Care Teams Licensed Psychologist Director Relationship Specialty Start Date End Date Kyle Roberts MD PCP - General Family Practice 11/15/19 10/27/[address] [place], [place] [address] Carlota Landeros MD MD Urology 04/10/[address] [place], [place] [phone] Michelle Montana, MODESTA Registered Nurse Urology 05/07/17 Anh Costa APRN Nurse Practitioner Nurse Practitioner 10/07/17 Martinez Hernandez MD Ophthalmology 04/18/[address] [place] [phone] Sabino Romano DPM MD Podiatry 08/11/[address] [address] Mehreen Johnston MD Family Practice 11/15/19 MD PhD [address] [place] [address] Margot Branham MD MD Internal Medicine 04/17/[address] [place] [address] Martinez Galicia, Assigned Surgical 07/26/20 MD Provider [address] [place] [address] documented as of this encounter
--- OUTSIDE RECORDS SUMMARY | 2022-07-30 19:22 | XMS_ITS | Encounter Summary ---
:1945 Author Organization [facility] Address [address] [place] [address]. [place] [address] Care Team Providers Name Role Phone Carlota Landeros MD Unavailable Michelle Montana RN Unavailable Anh Costa TAPER OPERATOR SERVICE OBSERVER CHIEF Unavailable Unavailable Martinez Galicia MD Unavailable Sabino Romano DPM Unavailable Mehreen Johnston MD PhD Unavailable [phone] Margot Branham MD Unavailable Margot Branham MD Unavailable Margot Branham MD Primary Care Provider Encounter Details Date Type Department Care Team Description 08/15/2021 Travel Social History Tobacco Use Types Packs/Day Years Used Date Smoking Tobacco: Never Smokeless Tobacco: Never Alcohol Use Standard Drinks/Week Comments Yes 0 (1 standard drink = 0.6 oz pure alcoho l) wine few times/wk Sex Assigned at Date Recorded Female 12/20/2018 4:10 PM CDT COVID-19 Exposure Response Date Recorded In the last month, have you been in contact with No / Unsure 08/15/2021 10:58 AM WOOL SACKER someone who was confirmed or suspected to have Coronavirus / COVID-19? documented as of this encounter Plan of Treatment Upcoming Encounters Date Type Specialty Care Team Description 09/10/2022 Office Visit Internal Medicine LogMargot sadler MD [address] [place] [address] (Wo rk) documented as of this encounter Visit Diagnoses Not on filedocumented in this encounter Additional Health Concerns Assessment Noted Time PHQ-9 Depression Total Score: 0 11/22/2019 10:49 AM CS T documented as of this encounter Care Teams Skip Locator Relationship Specialty Start Date End Date Margot Branham MD PCP - General Internal Medicine 10/28/[address] [place] [phone] Carlota Landeros MD MD Urology 04/10/[address] [place] [address] Michelle Montana, RN Registered Nurse Urology 05/07/17 Anh Costa APRN SERVICE OBSERVER CHIEF Nurse Practitioner Nurse Practitioner 10/07 Martinez Galicia MD MD Ophthalmology 04/18/[address] [place] [phone] Sabino Romano DPM MD Podiatry 08/11/[address] [phone] Mehreen Johnston MD PhD MD Family Practice 11/15/[address] [place] [address] Margot Branham MD MD Internal Medicine 04/17/[address] [place] [phone] Margot Branham MD Assigned PCP 09/15/[address] [place] [address] documented as of this encounter
--- OUTSIDE RECORDS SUMMARY | 2022-07-30 19:22 | XMS_ITS | Encounter Summary ---
:1945 Author Organization [facility] Address [address] [place] [address]. [place] [address] Care Team Providers Name Role Phone Carlota Landeros MD Unavailable Michelle Montana RN Unavailable Anh Costa LEAD NITRATE PROCESSOR DRESS FITTER Unavailable Unavailable Martinez Galicia MD Unavailable Sabino Romano DPM Unavailable Mehreen Johnston MD PhD Unavailable [phone] LogeaMargot man MD Unavailable Martinez Galicia MD Unavailable LogMargot sadler MD Unavailable LogMargot sadler MD Primary Care Provider Encounter Details Date Type Department Care Team Description 01/08/2021 Therapy Visit [facility] Kevin Wynn DDD ([facility], PT disc disease), [facility] [address] [place] [address] [phone] Social History Tobacco Use Types Packs/Day Years Used Date Smoking Tobacco: Never Smokeless Tobacco: Never Alcohol Use Standard Drinks/Week Comments Yes 0 (1 standard drink = 0.6 oz pure alcoho l) wine few times/wk Sex Assigned at Date Recorded Female 12/20/2018 4:10 PM CDT COVID-19 Exposure Response Date Recorded In the last month, have you been in contact with No / Unsure 01/08/2021 3:55 PM CDT someone who was confirmed or suspected to have Coronavirus / COVID-19? documented as of this encounter Plan of Treatment Upcoming Encounters Date Type Specialty Care Team Description 09/10/2022 Office Visit Internal Medicine Margot Branham MD [address] [phone] (Wo rk) documented as of this encounter Procedures Procedure Name Priority Date/Time Associated Diagnosis Comme nts WI MANUAL THERAPY, EA 15 Routine 01/12/2021 12:21 PM DDD (dege nerative MIN CDT disc disease), lumbar WI NEUROMUSCULAR Routine 01/12/2021 12:21 PM DDD (degenerative REEDUCATION,1+ AREAS, EA CDT disc disease), l umbar 15 MIN WI THERAPEUTIC EXERCISES. Routine 01/12/2021 12:21 PM DDD (deg enerative EA 15 MIN CDT disc disease), lumbar documented in this encounter Visit Diagnoses Diagnosis DDD (degenerative disc disease), lumbar Degeneration of lumbar or lumbosacral in tervertebral disc documented in this encounter Additional Health Concerns Assessment Noted Time PHQ-9 Depression Total Score: 0 11/22/2019 10:49 AM CS T documented as of this encounter Care Teams Technical Solution Architect Relationship Specialty Start Date End Date Margot Branham MD PCP - General Internal Medicine 10/28/[address] [phone] Carlota Landeros MD MD Urology 04/10/[address] [place], [place] [phone] Michelle Montana, MODESTA Registered Nurse Urology 05/07/17 Anh Costa APRN Nurse Practitioner Nurse Practitioner 10/07/17 Martinez Hernandez MD Ophthalmology 04/18/[address] [place] [phone] Sabino Romano DPM MD Podiatry 08/11/[address] [place] [phone] Mehreen Johnston MD Family Practice 11/15/19 MD PhD [address] [place] [phone] Margot Branham MD MD Internal Medicine 04/17/[address] [place] [address] [phone] Martinez Galicia, Assigned Surgical 07/26/20 MD Provider [address] [place] [phone] Margot Branham MD Assigned PCP 09/15/[address] [place] [phone] documented as of this encounter
--- OUTSIDE RECORDS SUMMARY | 2022-07-30 19:22 | XMS_ITS | Encounter Summary ---
:1945 Author Organization [facility] Address [address] [place] [address]. [place] [address] Care Team Providers Name Role Phone Carlota Landeros MD Unavailable Michelle Montana RN Unavailable Anh Costa PATIENT ASSESSMENT COORDINATOR DIRECTOR OF TEACHING AND LEARNING Unavailable Unavailable Martinez Galicia MD Unavailable Sabino Romano DPM Unavailable Kyle Roberts MD Primary Care Provider Mehreen Johnston MD PhD Unavailable [phone] Margot Branham MD Unavailable Martinez Galicia MD Unavailable Reason for Visit Rehab Therapy Physical Therapy (Routine) - Closed Specialty Diagnoses / Procedures Referred By Contact Refer red To Contact Diagnoses Acute bilateral low back pain with right-sided sciatica Margot Branham MD [address] 6845 5 Referral ID Status Reason Start Date Expiration Date Visits Requ ested Visits Authorized [id number] Closed 09/02/2020 09/02/2021 1 1 Encounter Details Date Type Department Care Team Description 09/04/2020 Therapy Visit [facility] Rikki Rojas, Acute bilateral low back pain with right-sided sciatica; Rehabilitation Services PT Low back pain; [facility] ROBBI PRECIADO Lumbar radiculopathy [address] [place] [address] [phone] Social History Tobacco Use Types Packs/Day Years Used Date Smoking Tobacco: Never Smokeless Tobacco: Never Alcohol Use Standard Drinks/Week Comments Yes 0 (1 standard drink = 0.6 oz pure alcoho l) wine few times/wk Sex Assigned at Date Recorded Female 12/20/2018 4:10 PM CDT COVID-19 Exposure Response Date Recorded In the last month, have you been in contact with No / Unsure 09/04/2020 9:28 AM TRAUMA COUNSELLOR someone who was confirmed or suspected to have Coronavirus / COVID-19? documented as of this encounter Progress Notes Rikki Rojas, PT - 09/04/2020 9:30 AM CST [facility] Initial Evaluation Subjective: Therapist Generated HPI Evaluation Problem details: Pt reports onset of LBP and RLE symptoms in March of 2020. Not sure what caused symptoms initially, more of an insidious onset. Currently locates pain in midline of low back, pain in R buttock/hamstring/calf/dorsum and lateral aspect of foot as well as numbness in calf/foot. Describes pain as sharp and dull at times. Pain worse with sitting for long periods of time (pain with 5-10 min), more pain getting up from prolonged sitting (feels more comfortable when she is in a more rounded position standing) and trying to get to sleep at night. Hasn't found much that has helped with her symptoms. Pt is retired. Getting her L hip replaced next week on 09/11/20. MD orders as of 08/28/20.. Type of problem: Lumbar. Objective: System Lumbar/SI Evaluation ROM: Arom wnl lumbar: Baseline 5/10 LBP and pain down custodial to hamstring. AROM Lumbar: Flexion: To ankles, no increase in sxs Ext: 75% ROM, no change in sxs Side Bend: Left: To knee, no change in sxs Right: To knee, slight increase in LBP Rotation: Left: Right: Side [place]: Left: Right: Lumbar Myotomes: normal Lumbar Dermtomes: S1 Left: Normal-light touch S1 Right: Hypo-light touch Neural Tension/Mobility: Right side: Slump positive. General Evaluation: Posture: Standing: Lordosis decreased Sitting: Lordosis decreased ROS Assessment/Plan: Patient is a 75 year old female with lumbar complaints. Patient has the following significant findings with corresponding treatment plan. Diagnosis 1: LBP with RLE Pain - hot/cold therapy, US, electric stimulation, mechanical traction, manual therapy, splint/taping/bracing/orthotics, self management, education, directional preference exercise and home program Decreased ROM/flexibility - manual therapy, therapeutic exercise, therapeutic activity and home program Decreased joint mobility - manual therapy, therapeutic exercise, therapeutic activity and home program Decreased strength - therapeutic exercise, therapeutic activities and home program Impaired muscle performance - neuro re-education and home program Decreased function - therapeutic activities and home program Poor posture - therapeutic activities Therapy Evaluation Codes: 1) History comprised of: Personal factors that impact the plan of care: None. Comorbidity factors that impact the plan of care are: None. Medications impacting care: None. 2) Examination of Body Systems comprised of: Body structures and functions that impact the plan of care: Lumbar spine. Activity limitations that impact the plan of care are: Bending, Sitting, Standing, Walking and Sleeping. 3) Clinical presentation characteristics are: Stable/Uncomplicated. 4) Decision-Making Low complexity using standardized patient assessment instrument and/or measureable assessment of functional outcome. Cumulative Therapy Evaluation is: Low complexity. Previous and current functional limitations: (See Goal Flow Sheet for this information) Short term and document processor goals: (See Goal Flow Sheet for this information) Communication ability: Patient appears to be able to clearly communicate and understand verbal and written communication and follow directions correctly. Treatment Explanation - The following has been discussed with the patient: RX ordered/plan of care Anticipated outcomes Possible risks and side effects This patient would benefit from PT intervention to resume normal activities. Rehab potential is good. Frequency: 1 X week, once daily Duration: for 6 weeks Discharge Plan: Achieve all LTG. Independent in home treatment program. Reach maximal therapeutic benefit. Please refer to the daily flowsheet for treatment today, total treatment time and time spent performing 1:1 timed codes. MA COUNSELLOR documented in this encounter Plan of Treatment Upcoming Encounters Date Type Specialty Care Team Description 09/10/2022 Office Visit Internal Medicine Logeais, MD Margot [address] [place] [address] [address] [place], [place] [id number] (Wo rk) documented as of this encounter Procedures Procedure Name Priority Date/Time Associated Diagnosis Comme nts MO THERAPEUTIC Routine 09/04/2020 10:47 AM Acute bilateral low back ACTIVITIES, EA 15 MIN TRAUMA COUNSELLOR pain with right-justin ed sciatica Low back pain Lumbar radiculopathy MO THERAPEUTIC Routine 09/04/2020 10:47 AM Acute bilateral low back EXERCISES. EA 15 MIN TRAUMA COUNSELLOR pain with right-side d sciatica Low back pain Lumbar radiculopathy documented in this encounter Visit Diagnoses Diagnosis Acute bilateral low back pain with right -sided sciatica Low back pain Lumbago Lumbar radiculopathy Thoracic or lumbosacral neuritis or radi culitis, unspecified documented in this encounter Additional Health Concerns Assessment Noted Time PHQ-9 Depression Total Score: 0 11/22/2019 10:49 AM CS T documented as of this encounter Care Teams Tractor Mechanic Apprentice Relationship Specialty Start Date End Date Kyle Roberts MD PCP - General Family Practice 11/15/19 10/27/[address] [place], [place] [address] Carlota Landeros MD MD Urology 04/10/[address] [place], [place] [address] Michelle Montana, MODESTA Registered Nurse Urology 05/07/17 Anh Costa APRN Nurse Practitioner Nurse Practitioner 10/07/17 Martinez Hernandez MD Ophthalmology 04/18/[address] [place] [address] [phone] Sabino Romano DPM MD Podiatry 08/11/[address] [phone] Mehreen Johnston MD Family Practice 11/15/[address] [place] [address] [phone] Margot Branham MD MD Internal Medicine 04/17/[address] [place] [address] [phone] Martinez Galicia, Assigned Surgical 07/26/[address] [place] [address] [phone] documented as of this encounter
--- OUTSIDE RECORDS SUMMARY | 2022-07-30 19:22 | XMS_ITS | Encounter Summary ---
:1945 Author Organization [facility] Address [address] [place] [address]. [place] [address] Care Team Providers Name Role Phone Carlota Landeros MD Unavailable Michelle Montana RN Unavailable Anh Costa CYCLE CONSULTANT PROPERTY SUPERVISOR Unavailable Unavailable Martinez Galicia MD Unavailable Sabino Romano DPM Unavailable Kyle Roberts MD Primary Care Provider Mehreen Johnston MD PhD Unavailable [phone] Margot Branham MD Unavailable Martinez Galicia MD Unavailable Encounter Details Date Type Department Care Team Description 09/02/2020 Travel Social History Tobacco Use Types Packs/Day [...] with No / Unsure 09/02/2020 12:52 PM AIRPORT SCREENER someone who was confirmed or suspected to have Coronavirus / COVID-19? documented as of this encounter Plan of Treatment Upcoming Encounters Date Type Specialty Care Team Description 09/10/2022 Office Visit Internal Medicine Margot Branham MD [address] [place] [address] (Wo rk) documented as of this encounter Visit Diagnoses Not on filedocumented in this encounter Additional Health Concerns Assessment Noted Time PHQ-9 Depression Total Score: 0 11/22/2019 10:49 AM CS T documented as of this encounter Care Teams Gallery Or Museum Guide Relationship Specialty Start Date End Date Kyle Roberts MD PCP - General Family Practice 11/15/19 10/27/[address] [place], [place] [address] Carlota Landeros MD MD Urology 04/10/[address] [place], [place] [address] Michelle Montana, RN Registered Nurse Urology 05/07/17 Anh Costa APRN Nurse Practitioner Nurse Practitioner 10/07/17 PROPERTY SUPERVISOR Martinez Galicia MD Ophthalmology 04/18/[address] [place] [address] [phone] Sabino Romano DPM MD Podiatry 08/11/[address] [place] [address] [phone] Mehreen Johnston MD Family Practice 11/15/19 MD PhD [address] [place] [address] [phone] Margot Branham MD MD Internal Medicine 04/17/[address] [place] [address] [phone] Martinez aGlicia, Assigned Surgical 07/26/20 MD Provider [address] [place] [address] [phone] documented as of this encounter
--- OUTSIDE RECORDS SUMMARY | 2022-07-30 19:22 | XMS_ITS | Encounter Summary ---
:1945 Author Organization [facility] Address [address] [place] [address]. [place] [address] Care Team Providers Name Role Phone Carlota Landeros MD Unavailable Michelle Montana RN Unavailable Anh Costa RESTORATIVE REHAB AIDE CHIEF ENGINEER'S HELPER Unavailable Unavailable Martinez Galicia MD Unavailable Sabino Romano DPM Unavailable Mehreen Johnston MD PhD Unavailable [phone] LogeaMargot man MD Unavailable LogMargot sadler MD Unavailable LogMargot sadler MD Primary Care Provider Reason for Visit Reason Comments Medication Refill Encounter Details Date Type Department Care Team Description 08/11/2021 Refill [facility] Yasmine Vang, Medication Refill Clinic Gisella OLIVEROS [address] [place] [facility] 88 [address] [address] [place], [place] [phone] Social History Tobacco Use Types Packs/Day Years Used Date Smoking Tobacco: Never Smokeless Tobacco: Never Alcohol Use Standard Drinks/Week Comments Yes 0 (1 standard drink = 0.6 oz pure alcoho l) wine few times/wk Sex Assigned at Date Recorded Female 12/20/2018 4:10 PM CDT documented as of this encounter Plan of Treatment Upcoming Encounters Date Type Specialty Care Team Description 09/10/2022 Office Visit Internal Medicine Margot Branham MD [address] [place] [address] [phone] (Wo rk) documented as of this encounter Visit Diagnoses Diagnosis External hemorrhoids External hemorrhoids without mention of complication documented in this encounter Additional Health Concerns Assessment Noted Time PHQ-9 Depression Total Score: 0 11/22/2019 10:49 AM CS T documented as of this encounter Care Teams Ribbing Machine Operator Relationship Specialty Start Date End Date Margot Branham MD PCP - General Internal Medicine 10/28/[address] [place] [address] [phone] Carlota Landeros MD MD Urology 04/10/[address] [place] [address] Michelle Montana, MODESTA Registered Nurse Urology 05/07/17 Anh Costa APRN CHIEF ENGINEER'S HELPER Nurse Practitioner Nurse Practitioner 10/07 Martinez Galicia MD MD Ophthalmology 04/18/[address] [place] [address] [phone] Sabino Romano DPM MD Podiatry 08/11/[address] [place] [address] [phone] Mehreen Johnston MD PhD MD Family Practice 11/15/[address] [place] [address] [phone] Margot Branham MD MD Internal Medicine 04/17/[address] [place] [address] [phone] Margot Brnaham MD Assigned PCP 09/15/[address] [address] documented as of this encounter
--- OUTSIDE RECORDS SUMMARY | 2022-07-30 19:22 | XMS_ITS | Encounter Summary ---
:1945 Author Organization [facility] Address [address] [place] [address]. [place] [address] Care Team Providers Name Role Phone Carlota Landeros MD Unavailable Michelle Montana RN Unavailable Anh Costa RELOCATION SPECIALIST PETS SALESPERSON Unavailable Unavailable Martinez Galicia MD Unavailable Sabino Romano DPM Unavailable Kyle Roberts MD Primary Care Provider Mehreen Johnston MD PhD Unavailable [phone] Margot Branham MD Unavailable Martinez Galicia MD Unavailable Encounter Details Date Type Department Care Team Description 09/06/2020 Therapy Visit [facility] Kevin Wynn ba ck pain; Rehabilitation Services P, PT Lumbar radiculopathy [address] [address] [phone] Social History Tobacco Use Types Packs/Day Years Used Date Smoking Tobacco: Never Smokeless Tobacco: Never Alcohol Use Standard Drinks/Week Comments Yes 0 (1 standard drink = 0.6 oz pure alcoho l) wine few times/wk Sex Assigned at Date Recorded Female 12/20/2018 4:10 PM CDT COVID-19 Exposure Response Date Recorded In the last month, have you been in contact with No / Unsure 09/06/2020 5:13 PM UMBRELLA SUPERVISOR someone who was confirmed or suspected to have Coronavirus / COVID-19? documented as of this encounter Progress Notes MellisaKevin clemens Brianne, PT - 09/06/2020 5:20 PM CST Subjective: The history is provided by the patient. No translator/interpreter was used. Physical Exam Objective: Standing Alignment: Cervical/Thoracic: Forward head Shoulder/UE: Rounded shoulders Lumbar: Lordosis decr Physical Exam Indra Lumbar Evaluation Posture: Sitting: poor Standing: fair Lordosis: Reduced Lateral Shift: nil Correction of Posture: better Static Tests: Lying Prone in Extension: prone and IGNACIO: decrease, better Conclusion: derangement Principle of Treatment: Posture Correction: posture correction Extension: sustained prone lying and IGNACIO ROS Assessment/Plan: DISCHARGE REPORT Progress reporting period is from 09/04/20 to 09/06/20. SUBJECTIVE Subjective changes noted by patient: R LE feels little better. Low back feels more relaxed with performing prone positioning. Her R LE feels worse sitting. Feels better standing and walking. Pt is leaving for [place] on 09/08/20 in preperation for L ALEKS surgery at [place] on 09/11/20. She plans to resumePT following her L ALEKS surgery as surgeon allows. Current Pain level: 4/10. Initial Pain level: 4/10. Changes in function: Yes (See Goal flowsheet attached for changes in current functional level) Adverse reaction to treatment or activity: None OBJECTIVE Changes noted in objective findings: Yes, see objective findings ASSESSMENT/PLAN Updated problem list and treatment plan: Diagnosis 1: R LBP with R LE Pain - hot/cold therapy, manual therapy, self management, education, directional preference exercise and home program Decreased ROM/flexibility - manual therapy, therapeutic exercise and home program Decreased proprioception - neuro re-education, therapeutic activities and home program Impaired muscle performance - neuro re-education and home program Decreased function - therapeutic activities and home program Impaired posture - neuro re-education and home program STG/LTGs have been met or progress has been made towards goals: Yes (See Goal flow sheet completed today.) Assessment of Progress: The patient's condition is improving. Self Management Plans: Patient has been instructed in a home treatment program. Patient has been instructed in self management of symptoms. I have re-evaluated this patient and find that the nature, scope, duration and intensity of the therapy is appropriate for the medical condition of the patient. Yamileth continues to require the following intervention to meet STG and LTG's: PT Recommendations: This patient is ready to be discharged from therapy and continue their home treatment program until her L ALEKS surgery. She was instructed to discontinue her home treatment program following her ALEKS surgery and follow post op instructions from surgeon. Please refer to the daily flowsheet for treatment today, total treatment time and time spent performing 1:1 timed codes. ELLA SUPERVISOR documented in this encounter Plan of Treatment Upcoming Encounters Date Type Specialty Care Team Description 09/10/2022 Office Visit Internal Medicine Margot Branham MD [address] [phone] (Wo rk) documented as of this encounter Procedures Procedure Name Priority Date/Time Associated Diagnosis Comme nts WI THERAPEUTIC Routine 09/08/2020 2:35 PM Low back pain ACTIVITIES, EA 15 MIN UMBRELLA SUPERVISOR Lumbar radiculopath y WI NEUROMUSCULAR Routine 09/08/2020 2:35 PM Low back cameron n REEDUCATION,1+ AREAS, EA UMBRELLA SUPERVISOR Lumbar radiculop athy 15 MIN WI THERAPEUTIC Routine 09/08/2020 2:35 PM Low back pain EXERCISES. EA 15 MIN UMBRELLA SUPERVISOR Lumbar radiculopathy documented in this encounter Visit Diagnoses Diagnosis Low back pain Lumbago Lumbar radiculopathy Thoracic or lumbosacral neuritis or radi culitis, unspecified documented in this encounter Additional Health Concerns Assessment Noted Time PHQ-9 Depression Total Score: 0 11/22/2019 10:49 AM CS T documented as of this encounter Care Teams Pediatric Pathologist Relationship Specialty Start Date End Date Kyle Roberts MD PCP - General Family Practice 11/15/19 10/27/[address] [place], [place] [phone] Carlota Landeros MD MD Urology 04/10/[address] [place], [place] [address] Michelle Montana, RN Registered Nurse Urology 05/07/17 Anh Costa APRN Nurse Practitioner Nurse Practitioner 10/07/17 Martinez Hernandez MD Ophthalmology 04/18/[address] [place] [address] Sabino Romano DPM MD Podiatry 08/11/18 [facility] [address] [phone] Mehreen Johnston MD Family Practice 11/15/19 MD PhD [address] [place] [address] Margot Branham MD MD Internal Medicine 04/17/[address] [place] [address] Martinez Galicia, Assigned Surgical 07/26/20 MD Provider [address] [place] [address] documented as of this encounter
--- OUTSIDE RECORDS SUMMARY | 2022-07-30 19:22 | XMS_ITS | Encounter Summary ---
:1945 Author Organization [facility] Address [address] [place] [address]. [place] [address] Care Team Providers Name Role Phone Carlota Landeros MD Unavailable Michelle Montana RN Unavailable Anh Costa ARMATURE BANDER LICENSED REAL ESTATE BROKER Unavailable Unavailable Martinez Galicia MD Unavailable aSbino Romano DPM Unavailable Kyle Roberts MD Primary Care Provider Mehreen Johnston MD PhD Unavailable [phone] Margot Branham MD Unavailable Martinez Galicia MD Unavailable Encounter Details Date Type Department Care Team Description 09/03/2020 Travel Social History Tobacco Use Types Packs/Day Years Used Date Smoking Tobacco: Never Smokeless Tobacco: Never Alcohol Use Standard Drinks/Week Comments Yes 0 (1 standard drink = 0.6 oz pure alcoho l) wine few times/wk Sex Assigned at Date Recorded Female 12/20/2018 4:10 PM CDT COVID-19 Exposure Response Date Recorded In the last month, have you been in contact with No / Unsure 09/03/2020 4:52 PM GEOPHYSICAL DATA TECHNICIAN someone who was confirmed or suspected to have Coronavirus / COVID-19? documented as of this encounter Plan of Treatment Upcoming Encounters Date Type Specialty Care Team Description 09/10/2022 Office Visit Internal Medicine Margot Branham MD [address] [place] [address] (Wo rk) documented as of this encounter Visit Diagnoses Not on filedocumented in this encounter Additional Health Concerns Assessment Noted Time PHQ-9 Depression Total Score: 0 11/22/2019 10:49 AM CS T documented as of this encounter Care Teams Licensed Audiologist Relationship Specialty Start Date End Date Kyle Roberts MD PCP - General Family Practice 11/15/19 10/27/[address] [place], [place] [address] Carlota Landeros MD MD Urology 04/10/[address] [place], [place] [address] Michelle Montana, RN Registered Nurse Urology 05/07/17 Anh Costa APRN Nurse Practitioner Nurse Practitioner 10/07/17 LICENSED REAL ESTATE BROKER Martinez Galicia MD Ophthalmology 04/18/[address] [place] [address] [phone] Sabino Romano DPM MD Podiatry 08/11/[address] [place] [address] [phone] Mehreen Johnston MD Family Practice 11/15/19 MD PhD [address] [place] [address] [phone] Margot Branham MD MD Internal Medicine 04/17/[address] [place] [address] [phone] Martinez Galicia, Assigned Surgical 07/26/20 MD Provider [address] [place] [address] [phone] documented as of this encounter
--- OUTSIDE RECORDS SUMMARY | 2022-07-30 19:22 | XMS_ITS | Encounter Summary ---
:1945 Author Organization [facility] Address [address] [place] [address]. [place] [address] Care Team Providers Name Role Phone Carlota Landeros MD Unavailable Michelle Montana RN Unavailable Anh Costa FINGERPRINT CLASSIFIER TIRE CENTER SUPERVISOR Unavailable Unavailable Martinez Galicia MD Unavailable Sabino Romano DPM Unavailable Kyle Roberts MD Primary Care Provider Mehreen Johnston MD PhD Unavailable [phone] Margot Branham MD Unavailable Martinez Galicia MD Unavailable Reason for Referral Rehab Therapy Physical Therapy (Routine) - Closed Specialty Diagnoses / Procedures Referred By Contact Refer red To Contact Diagnoses Acute bilateral low back pain with right-sided sciatica Margot Branham MD [address] [address] Referral ID Status Reason Start Date Expiration Date Visits Requ ested Visits Authorized [id number] Closed 09/02/2020 09/02/2021 1 1 iagnostic Imaging XR (Routine) - Closed Specialty Diagnoses / Procedures Referred By Contact Refer red To Contact Diagnoses Acute bilateral low back pain with right-sided sciatica Margot Branham MD Procedures XR Lumbar Spine 2-3 Views [address], [place] [address] Referral ID Status Reason Start Date Expiration Date Visits Requ ested Visits Authorized [id number] Closed 09/02/2020 09/02/2021 1 1 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 documented as of this encounter Last Filed Vital Signs Vital Sign Reading Time Taken Comments Blood Pressure 138/71 09/02/2020 1:02 PM MOTORCYCLE REPAIRER Pulse 66 09/02/2020 12:59 PM MOTORCYCLE REPAIRER Temperature 36.4 ??C (97.5 ??F) 09/02/2020 12:59 PM MOTORCYCLE REPAIRER Respiratory Rate - - Oxygen Saturation 97% 09/02/2020 12:59 PM MOTORCYCLE REPAIRER Inhaled Oxygen Concentration - - Weight 68.4 kg (150 lb 14.4 oz) 09/02/2020 12:59 PM MOTORCYCLE REPAIRER Height - - Body Mass Index 24.36 08/17/2019 2:01 PM MOTORCYCLE REPAIRER documented in this encounter Patient Instructions Patient InstructionsLatanya Palacios CMA - 09/02/2020 1:00 PM MOTORCYCLE REPAIRER [facility] Medication Refill Request Information: * Please contact your pharmacy regarding ANY request for medication refills. [facility] Prescription Fax = [phone] * Please allow 3 business days for routine medication refills. * Please allow 5 business days for controlled substance medication refills. [facility] Test Result notification information: *You will be notified with in 7-10 days of your appointment day regarding the results of your test. If you are on MyChart you will be notified as soon as the provider has reviewed the results and signed off on them. [facility]: [phone] RCYCLE REPAIRER documented in this encounter Progress Notes Margot Branham MD - 09/02/2020 1:00 PM CST History of Present Illness: Ms. Sheikh is a 75 year old female with a past history of hypertension, hyperlipidemia, and osteoarthritis who presents today for an annual visit. Her health has been relatively stable recently, but she is having a left hip replacement in a few weeks (09/11/2020) at the [facility] in [place]. Toryhas also been closely followed for osteoporosis, and her physicians at the [facility] have prescribed her Fosamax, but she has not started taking this yet. She is worried, because she has heard negative things about the side effects of this drug. She will reconsider beginning this medication after her hip surgery in early September. In the past few months, she has also started having some right leg pain and numbness. The pain starts in her lower back and runs down the entire length of her right leg. She notices the pain mostly when she driving long distances, and the pain usually resolves after she gets out of the car and walks abit. The lower back pain is more constant for her and she is consistently taking ibuprofen for the pain. She also notes that when she gets up from laying down, particularly after a night of sleep, she has bilateral groin pain. She wonders if all of this pain could be related to osteoarthritis. She gets recurrent hyaluronic acid injections into her knees, which is helpful for her. Her other health concerns are currently being well managed. She is still using the Estring and the estradiol vaginal cream for atrophic vaginitis. She sees cardiology for preventative visits, and currently has no concerns with her heart. Her blood pressure is also well managed. She used to take her BPat home, but her systolic readings were always in the 120s and so she stopped taking readings at home. She has concerns about lumps in her breast, particularly her left breast. She gets regular mammograms, and has had a biopsy in the area of concern of her left breast before. Although the results werebenign, she wants to continue to have routine screening and breast exams. A full 10-pt Review of Systems was performed, verified and [...] Past Surgical History: Procedure Laterality Date ??? BREAST BIOPSY, RT/LT Breast Biopsy RT/LT ??? C TOTAL HIP ARTHROPLASTY Right 2006 right ??? C/SECTION, CLASSICAL 1978 , Classical ??? CATARACT IOL, RT/LT Left 07/25/2018 ??? CYSTOSCOPY, SLING TRANSVAGINAL N/A 03/26/2015 Procedure: CYSTOSCOPY, SLING TRANSVAGINAL; Surgeon: Carlota Landeros MD; Location: [facility] OR ??? HC COLONOSCOPY THRU STOMA, DIAGNOSTIC +FHx 2007 ??? HRW VEIN STRIPPER Left 1996 ??? HYSTEROSCOPY 06-24-2016 ??? IMPLANT STIMULATOR AND LEADS SACRAL NERVE (STAGE ONE AND TWO) 05/19/2011 Procedure:IMPLANT STIMULATOR AND LEADS SACRAL NERVE (STAGE ONE AND TWO); Surgeon:CARLOTA LANDEROS;Location:[facility] OR ??? MAMMOPLASTY REDUCTION 1989 ??? PHACOEMULSIFICATION [...] Left Interstim Battery Latex Allergy; Surgeon: Carlota Landeros MD; Location: [facility] ??? SHOULDER SURGERY Right 04/2019 ??? SURGICAL HISTORY OF - ? Nasal passages microwaved. Dr Baer ENT ??? uteroscopy 05/04/2018 Active Meds: Current Outpatient Medications Medication ??? amoxicillin (AMOXIL) 500 MG capsule ??? cholecalciferol (VITAMIN D3) 1000 UNIT tablet ??? Coenzyme Q10 (COQ-10) 100 MG CAPS ??? estradiol (ESTRING) 2 MG vaginal ring ??? estradiol 0.1 MG/GM VA vaginal cream ??? hydrocortisone (ANUSOL-HC) 2.5 % cream ??? irbesartan (AVAPRO) 150 MG tablet ??? LYSINE PO ??? OTHER MEDICAL SUPPLIES ??? Probiotic Product (PROBIOTIC DAILY PO) ??? rosuvastatin (CRESTOR) 5 MG tablet ??? valACYclovir 1000 mg PO tablet ??? ciclopirox (LOPROX) 0.77 % cream No current facility-administered medications for this visit. [...] Pneumonia in her paternal grandfather. Social History: Patient lives alone in the [facility] area. 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 She has one son in the area and he helps her whenever she needs anything. 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 She would also like to get a dog in the near future. Her lifestyle has changed with COVID, but she is hopefully to get back to her normal activities in the future. Social History Tobacco Use ??? Smoking status: Never Smoker ??? Smokeless tobacco: Never Used Substance Use Topics ??? Alcohol use: Yes Comment: wine few times/wk ??? Drug use: No Physical Exam: Vitals: BP 138/71 Pulse 66 Temp 97.5 ??F (36.4 ??C) (Axillary) Wt 68.4 kg (150 lb 14.4 oz) SpO2 97% BMI 24.36 kg/m?? Constitutional: Alert, oriented, pleasant, no acute distress Head: Normocephalic, atraumatic Eyes: Extra-ocular movements intact, pupils equally round and reactive bilaterally, no scleral icterus ENT: Oropharynx clear, moist mucus membranes, good dentition Neck: Supple, no lymphadenopathy Cardiovascular: Regular rate and rhythm, no murmurs, rubs or gallops, peripheral pulses full/symmetric Respiratory: Good air movement bilaterally, lungs clear, no wheezes/rales/rhonchi GI: Abdomen soft, bowel sounds present, nondistended, nontender, no organomegaly or masses, no rebound/guarding Musculoskeletal: No edema, normal muscle tone, normal gait. Negative bilateral straight leg raise. Neurologic: Alert and oriented, cranial nerves 2-12 intact, grossly non-focal Skin: No rashes/lesions, numerous seborrheic keratosis on back Psychiatric: normal mentation, affect and mood Breast: Left breast notable for ill circumscribed 2cm area of fibrosis changes lateral to nipple. Nolymphadenopathy or skin changes. Right breast normal. Assessment and Plan: 1. Acute bilateral low back pain with right-sided sciatica - Patient's description of bilateral low back pain with right-sided pain sounds consistent with right-sided sciatica. However, the patient had a negative straight leg raise test bilaterally. With the patient's history of osteoporosis, it is also important to consider possible lumbar spine compression fracture. - X-ray of lumbar spine - Physical therapy referral - Could consider short course of steroids. Advised she also d/w ortho surgeon. 2. 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 She is also having troubles with her right hip, which was replaced in 2006. She will follow up with orthopedicsabout her right hip concerns after the September surgery, as they are already aware of the issue. 3. Localized osteoporosis without current pathological fracture - Patient is followed by Dr. Harris the [facility] in [place], regarding her osteoporosis. She as been prescribed Fosamax, but has not started this treatment yet. She is concerned about side effects.She will consider beginning the Fosamax after her surgery in a few weeks. 4. Lump or mass in breast - Breast exam performed. Dense fibrosis tissue felt in the lateral left breast. Consistent with the area previously biopsied. As this is the first visit with this patient, it is difficult to assess forchanges. Advised patient to continue with mammograms. Patient states that she has one scheduled at the [facility] in the near future. Return to clinic: Return in about 3 months for follow-up. August Espan[place] MS3 Attending Addendum: The medical student acted as scribe. The patient was seen and examined with medical student. The history and physical were independently verified by myself. The above documentation represents our jointassessment and plan. Margot Branham MD Internal Medicine RCYCLE REPAIRER documented in this encounter Nursing Notes Latanya Palacios, PUMA - 09/02/2020 1:00 PM CST Chief Complaint Patient presents with ??? Establish Care Pt is here to establish care. ADITYA Pérez 12:59 PM 09/02/2020 RCYCLE REPAIRER documented in this encounter Plan of Treatment Upcoming Encounters Date Type Specialty Care Team Description 09/10/2022 Office Visit Internal Medicine Log[place]ais, MD Margot [address] [facility] [address] [place] [address] (Wo rk) Scheduled Referrals Name Type Priority Associated Diagnoses Order S chedule PHYSICAL THERAPY Referral Routine Acute bilateral low back Expected: 09/02/2020, REFERRAL pain with right-sided s: 09/02/2021 sciatica documented as of this encounter Results XR Lumbar Spine 2-3 Views (09/02/2020 3:12 PM MOTORCYCLE REPAIRER) Anatomical Region Laterality Modality Spine, T-spine, L-spine, Abdomen/Pelvis Digital Radiography Specimen (Source) Anatomical Location Collection Method / Collectio n Time Received Time / Laterality Volume Impressions 09/02/2020 3:20 PM MOTORCYCLE REPAIRER IMPRESSION: Multilevel disc space narrowing in the lumbar spine, greatest at L4-L5, where there is mild a nterolisthesis of L4 in relation to L5. No compression fractures . GILBERTO BARRERA MD Narrative 09/02/2020 3:20 PM MOTORCYCLE REPAIRER Exam: 2 views of the lumbar spine dated 09/02/2020. COMPARISON: None. CLINICAL HISTORY: Osteoporosis. FINDINGS: AP and lateral views of the mbar spine were obtained. There are 5 [...] overlying the left hemipelvis. Procedure Note Gilberto Barrera MD - 09/02/2020Form atting of this note [...] to L5. No compression fractures . GILBERTO BARRERA MD Margot Branham MD IMG DIAGNOSTIC IMAGING ORDER FRIDA documented in this encounter Visit Diagnoses Diagnosis Acute bilateral low back pain with right -sided sciatica - Primary Lump or mass in breast Primary osteoarthritis of both hips Primary localized osteoarthrosis, pelvic region and thigh Localized osteoporosis without current p athological fracture Acute bilateral low back pain with right -sided sciatica documented in this encounter Additional Health Concerns Assessment Noted Time PHQ-9 Depression Total Score: 0 11/22/2019 10:49 AM CS T documented as of this encounter Care Teams Extractor And Wringer Operator Relationship Specialty Start Date End Date Kyle Roberts MD PCP - General Family Practice 11/15/19 10/27/[address] [place] [address] Carlota Landeros MD MD Urology 04/10/[address] [place], [place] [address] Micehlle Montana, MODESTA Registered Nurse Urology 05/07/17 Anh Costa APRN Nurse Practitioner Nurse Practitioner 10/07/17 Martinez Hernandez MD Ophthalmology 04/18/[address] [place] [address] Sabino Romano DPM MD Podiatry 08/11/[address] [phone] Mehreen Johnston MD Family Practice 11/15/[address] [place] [id number] Margot Branham MD MD Internal Medicine 04/17/[address] [id number] Martinez Galicia, Assigned Surgical 07/26/20 MD Provider [address] [place] [place], [place] [id number] documented as of this encounter
--- OUTSIDE RECORDS SUMMARY | 2022-07-30 19:22 | XMS_ITS | Encounter Summary ---
:1945 Author Organization [facility] Address [address] [place] [address] Care Team Providers Name Role Phone Carlota Acuña MD Unavailable Michelle Montana RN Unavailable Anh Costa STRAIGHTENER COYOTE HUNTER Unavailable Unavailable Martinez Galicia MD Unavailable Sabino Romano DPM Unavailable Mehreen Johnston MD PhD Unavailable [phone] LogMargot sadler MD Unavailable Martinez Galicia MD Unavailable LogMargot sadler MD Unavailable Margot Branham MD Primary Care Provider Reason for Referral Rehab Therapy Physical Therapy (Routine) - Closed Specialty Diagnoses / Procedures Referred By Contact Refer red To Contact Diagnoses Lumbar back pain Margot Branham MD [address] [place] [address] [phone] Referral ID Status Reason Start Date Expiration Date Visits Requ ested Visits Authorized [id number] Closed 12/09/2020 12/09/2021 1 1 herapeutic Procedure Only (Routine) - Closed Specialty Diagnoses / Procedures Referred By Contact Refer red To Contact Diagnoses Lumbar back pain Margot Branham MD [address] [place] [address] [phone] Referral ID Status Reason Start Date Expiration Date Visits Requ ested Visits Authorized [id number] Closed 12/09/2020 12/09/2021 1 1 GE DIRECTOR Reason for Visit Reason Comments RECHECK Pt is following up. Encounter Details Date Type Department Care Team Description 12/09/2020 Virtual Visit [facility] Margot Branham, Lumbar back pain (Primary Dx); Clinic Internal Age-related osteoporosis without current pathological fracture; Medicine [address] History of total left hip re placement; [address] [place] [address] Vaginal dryness; [address] Floor [place], [place] Atrophic vaginitis; [place] [address] Screen for colon cancer; [address] Seasonal allergies; Chronic rhinitis; [phone] Recurrent cold sores; (Fax) Vitamin D defic iency; Essential hyper tension; Hyperlipidemia LDL goal <100 Social History Tobacco Use Types Packs/Day Years Used Date Smoking Tobacco: Never Smokeless Tobacco: Never Alcohol Use Standard Drinks/Week Comments Yes 0 (1 standard drink = 0.6 oz pure alcoho l) wine few times/wk Sex Assigned at Date Recorded Female 12/20/2018 4:10 PM CDT COVID-19 Exposure Response Date Recorded In the last month, have you been in contact Unable to assess 12/09/2020 7:37 AM CHANGE DIRECTOR with someone who was confirmed or suspected to have Coronavirus / COVID-19? documented as of this encounter Patient Instructions Patient InstructionsGraciela Snow LPN - 12/09/2020 9:00 AM CST [facility] Medication Refill Request Information: * Please contact your pharmacy regarding ANY request for medication refills. [facility] Prescription Fax = [phone] * Please allow 3 business days for routine medication refills. * Please allow 5 business days for controlled substance medication refills. [facility] Test Result notification information: *You will be notified with in 7-10 days of your appointment day regarding the results of your test. If you are on MyChart you will be notified as soon as the provider has reviewed the results and signed off on them. [facility]: [phone] GE DIRECTOR documented in this encounter Progress Notes Margot Branham MD - 12/09/2020 9:00 AM CST Yamileth Sheikh is a 75 year old female who is being evaluated via a billable telephone visit. The patient has been notified of following: This telephone visit will be conducted via a call between you and your physician/provider. The patient has consented to a video visit and informed that video and telephone visits are being performed during the COVID-19 pandemic in order to mitigate the risk of an in office visit for appropriate candid ates/issues. We have found that certain health care needs can be provided without the need for a physical exam. This service lets us provide the care you need with a short phone conversation. If a prescription is necessary we can send it directly to your pharmacy. If lab work is needed we can place anorder for that and you can then stop by our lab to have the test done at a later time. Telephone visits are billed at different rates depending on your insurance coverage. During this emergency period, for some insurers they may be billed the same as an in-person visit. Please reach out to your insurance provider with any questions. If during the course of the call the physician/provider feels a telephone visit is not appropriate, you will not be charged for this service. If the provider feels that they are unable to assess your concerns without an in person visit, you will be advised of this limitation and depending on the nature of the concern, advised to seek in person care if your provider feels you need urgent evaluation. Patient has given verbal consent for Telephone visit? Yes How would you like to obtain your AVS? MyChart Subjective Yamileth Sheikh is a 75 year old female who presents to clinic today for the following health issues: Chief Complaint Patient presents with ??? RECHECK Pt is following up. History of Present Illness: Ms. Sheikh is a 75 year old female with a past history of hypertension, hyperlipidemia, osteoarthritis s/p L ALEKS recently at [place] 09/11/20, osteoporosis, vaginal atrophy, urinary incontinence L sacralstimulator. Patient is recovering from ALEKS at [facility] early September. Incidentally, she also complains of LBP with R sciatica. Did 3 sessions of PT which helped leg symptoms. She takes APAP and rare nsaids. She is taking curcumin. She has not had a MRI. Pain is 5-8/10. Pain is less at night but worse when supine. She is interested in acupuncture. No fevers, N/V. She dies have night sweats, menopausal. She was on HRT previously but didn't help. She is not interested in medications at this time. She had xray in May at [place]: IMPRESSION: Osteopenia. No compression fractures. Hypertrophic changes thoracolumbar spine. Degenerative arthritis lower lumbar facet joints. Degenerative disk disease L3-lumbosacral interspaces. 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 Right ALEKS. Left sacral stimulator. She started fosamax. She has completed the following HCM at [place]: [place] 07/01/20 Procedure Date: 07/01/2020 Procedure: ? Colonoscopy Providers: ? Kevin Lucero MD, Donte Lara (Fellow) Referring Provider: ?Merrill Harris Pre-op Diagnoses: ?Family history of colon cancer in a first-degree ? relative before age 60 years Recommendation: ? - Return to referring physician as previously scheduled. Findings: ? The colon (entire examined portion) appeared normal. ? A scar was found in the distal rectum. The scar tissue was healthy in ? appearance. Mammo 09/10/20 INDICATION: Screening mammogram. COMPARISON: Prior exam(s) were available and reviewed for comparison. DENSITY: b. There are scattered areas of fibroglandular density. FINDINGS: No findings of malignancy. No significant change since prior exam.Postoperative changes from reduction mammoplasty. IMPRESSION: Benign. Dexa 05/16/20: According to the bone density report, Ms. Sheikh had a 58.5% decrease in the density of her left hip between 04/13/2018 and 11/23/2019 compared to a 9.5% decrease during the preceding 10 years. In contrast, the rate of bone loss at the 33% radius was constant between 2007 and 2019. It was also reported that the spine density at L1-L2 increased 11.1% between 11/20/2013 and 04/13/2018 and then decreased 11.8% between 04/13/2018 and 11/23/2019 even though Ms. Sheikh did not receive treatment for osteoporosis during this time interval. Patient Active Problem List Diagnosis ??? CARDIOVASCULAR SCREENING; LDL GOAL LESS THAN 130 ??? Urinary retention ??? Urinary urgency ??? Tinnitus of both ears ??? Varicose veins of lower extremity ??? Anal fissure ??? Hypertension ??? Osteopenia ??? Atrophic vaginitis ??? Lump or mass in breast ??? Disorder of bone and cartilage ??? ACP (advance care planning) ??? Elevated glucose ??? Hyperlipidemia ??? Vitreous degeneration, right ??? Asymmetrical sensorineural hearing loss ??? Uterine leiomyoma ??? Dermatochalasis of both lower eyelids ??? Acute bilateral low back pain with right-sided sciatica ??? Primary osteoarthritis of both hips ??? Localized osteoporosis without current pathological fracture Past Surgical History: Procedure Laterality Date ??? BREAST BIOPSY, RT/LT Breast Biopsy RT/LT ??? C TOTAL HIP ARTHROPLASTY Right 2006 right ??? C/SECTION, CLASSICAL 1978 , Classical ??? CATARACT IOL, RT/LT Left 07/25/2018 ??? CYSTOSCOPY, SLING TRANSVAGINAL N/A 03/26/2015 Procedure: CYSTOSCOPY, SLING TRANSVAGINAL; Surgeon: Carlota Acuña MD; Location: [facility] OR ??? HC COLONOSCOPY [...] microwaved. Dr Baer ENT ??? uteroscopy 05/04/2018 Social History Tobacco Use ??? Smoking status: [...] ??? Myocardial Infarction Maternal Grandfather [address] ??? Hypertension Maternal Grandfather ??? Cardiovascular Paternal Grandmother age 65 of heart problems ??? Hypertension Paternal Grandmother ??? Pneumonia Paternal Grandfather age 70 after flu ??? No Known Problems Son ??? Colon Cancer Cousin ??? Colon Cancer Paternal Uncle ??? Colon Cancer Paternal Aunt ??? Colon Cancer Maternal Great-Grandfather ??? Macular Degeneration No family hx of Reviewed and updated as needed this visit by Provider Review of Systems Comprehensive review of systems negative unless indicated in the HPI. Physical Exam Reported vitals: There were no vitals taken for this visit. Wt Readings from Last 2 Encounters: 09/02/20 68.4 kg (150 lb 14.4 oz) 11/22/19 67 kg (147 lb 12.8 oz) Estimated body mass index is 24.36 kg/m?? as calculated from the following: Height as of 08/17/19: 1.676 m (5' 6). Weight as of 09/02/20: 68.4 kg (150 lb 14.4 oz). Gen: healthy, alert, no distress and cooperative Psych: Alert and oriented times 3; coherent speech, normal rate and volume, able to articulate logical thoughts, able to abstract reason, no tangential thoughts, no hallucinations or delusions, affect is normal/bright. Respiratory: Speaking in full sentences, unlabored, no audible wheezes or cough. Remainder of exam unable to be completed due to telephone visits Diagnostic Test Results: Labs reviewed in [facility] Assessment/Plan: Yamileth was seen today for recheck. Diagnoses and all orders for this visit: Lumbar back pain Likely related to spondylolithesis, no compression fx on recent imaging. Outlined options for treatment, included PT, acupuncture, APAP, injections, pain management. She would like to start with PT, acupuncture. - ACUPUNCTURE REFERRAL - PHYSICAL THERAPY REFERRAL; Future Age-related osteoporosis without current pathological fracture She started bisphosphonates. History of total left hip replacement Recovering well. Atrophic vaginitis - estradiol (ESTRING) 2 MG vaginal ring; PLACE 1 RING VAGINALLY EVERY 3 MONTHS. - estradiol (ESTRACE) 0.1 MG/GM vaginal cream; APPLY A SMALL AMOUNT EXTERNALLY TO VULVA THREE TIMES WEEKLY. Recurrent cold sore - valACYclovir (VALTREX) 1000 mg tablet; Take 1 tablet (1,000 mg) by mouth 2 times daily For one dayat start of outbreak Essential hypertension - irbesartan (AVAPRO) 150 MG tablet; Take 1 tablet (150 mg) by mouth daily Hyperlipidemia LDL goal <100 - rosuvastatin (CRESTOR) 5 MG tablet; Take 1 tablet (5 mg) by mouth daily Phone call duration: 9:05 AM - 9:34 29 minutes Margot Branham MD Internal Medicine GE DIRECTOR documented in this encounter Nursing Notes Graciela Snow LPN - 12/09/2020 9:00 AM CST Chief Complaint Patient presents with ??? RECHECK Pt is following up. Video Visit Technology for this patient: AmWell not working, patient has smart device, please try Doximity Video with patient Graciela ABDIRIZAK Snow at 7:39 AM on 12/09/2020. GE DIRECTOR documented in this encounter Plan of Treatment Upcoming Encounters Date Type Specialty Care Team Description 09/10/2022 Office Visit Internal Medicine Margot Branham MD [address] [place] [address] [phone] (Wo rk) Scheduled Referrals Name Type Priority Associated Diagnoses Order S chedule ACUPUNCTURE REFERRAL Referral Routine Lumbar back pain Ord ered: 12/09/2020 PHYSICAL THERAPY REFERRAL Referral Routine Lumbar back cameron n Expected: 12/09/2020, Expires: 2021 documented as of this encounter Visit Diagnoses Diagnosis Lumbar back pain - Primary Lumbago Age-related osteoporosis without current pathological fracture Senile osteoporosis History of total left hip replacement Vaginal dryness Other specified symptom associated with female genital organs Atrophic vaginitis Postmenopausal atrophic vaginitis Screen for colon cancer Special screening for malignant neoplasm s, colon Seasonal allergies Allergic rhinitis, cause unspecified Chronic rhinitis Recurrent cold sores Herpes simplex without mention of compli cation Vitamin D deficiency Unspecified vitamin D deficiency Essential hypertension Unspecified essential hypertension Hyperlipidemia LDL goal <100 Other and unspecified hyperlipidemia documented in this encounter Additional Health Concerns Assessment Noted Time PHQ-9 Depression Total Score: 0 11/22/2019 10:49 AM CS T documented as of this encounter Care Teams Medical Office Manager Relationship Specialty Start Date End Date Margot Branham MD PCP - General Internal Medicine 10/28/[address] [place] [address] [phone] Carlota Acuña MD MD Urology 04/10/[address] [place] [address] Michelle Montana, RN Registered Nurse Urology 05/07/17 Anh Costa APRN Nurse Practitioner Nurse Practitioner 10/07/17 COYOTE HUNTER Martinez Galicia MD Ophthalmology 04/18/18 MD [address] [place], [place] [address] Sabino Romano DPM MD Podiatry 08/11/[address] [facility] [address] [phone] Mehreen Johnston MD Family Practice 11/15/19 MD PhD [address] [place] [address] Margot Branham MD MD Internal Medicine 04/17/[address] [place] [address] [phone] Martinez Galicia, Assigned Surgical 07/26/20 MD Provider [address] [place] [address] [phone] Margot Branham MD Assigned PCP 09/15/[address] [place] [address] [phone] documented as of this encounter
--- OUTSIDE RECORDS SUMMARY | 2022-07-30 19:22 | XMS_ITS | Encounter Summary ---
:1945 Author Organization [facility] Address [address] [place] [address]. [place] [address] Care Team Providers Name Role Phone Carlota Landeros MD Unavailable Michelle Montana RN Unavailable Anh Costa TIME CYCLE OPERATOR SUPPLIER DEVELOPMENT MANAGER Unavailable Unavailable Martinez Galicia MD Unavailable Sabino Romano DPM Unavailable Mehreen Johnston MD PhD Unavailable [phone] LogMargot sadler MD Unavailable LogMargot sadler MD Unavailable Margot Branham MD Primary Care Provider Reason for Visit Reason Onset Date Comments Symptoms 10/13/2021 UTI concern Encounter Details Date Type Department Care Team Description 10/13/2021 Telephone [facility] Margot Branham MD Symptoms (UTI concern) Clinic Internal 9 [facility] Medicine [address] Floor [address] [place], [place] [phone] [address] (Work) [phone] Social History Tobacco Use Types Packs/Day Years [...] with No / Unsure 10/13/2021 4:17 PM THERMOSTAT MACHINE TENDER someone who was confirmed or suspected to have Coronavirus / COVID-19? documented as of this encounter Miscellaneous Notes Telephone Encounter - Filomena Desouza - 10/13/2021 2:15 PM CST [facility] Call Center Phone Message May a detailed message be left on voicemail: yes Reason for Call: Symptoms or Concerns Current symptom or concern: UTI concern. Calling back after speaking to Red Flag Triage Nurse Margot earlier today about same symptoms. Patient has a lot of urgency to go and is very uncomfortable. Symptoms have been present for: couple days Has patient previously been seen for this? No Are there any new or worsening symptoms? No Patient wants to know if she needs to leave a urine sample and is requesting an order to be placed at [facility]. Please inform patient once this is completed. Patient is requesting a call back today. Action Taken: Message routed to: [facility] Travel Screening: Not Applicable Pt seen and treated. See chart. Aleena Collier RN 10:35 AM on 10/14/2021. MOSTAT MACHINE TENDER documented in this encounter Plan of Treatment Upcoming Encounters Date Type Specialty Care Team Description 09/10/2022 Office Visit Internal Medicine Margot Branham MD [address] [place] [phone] (Wo rk) documented as of this encounter Visit Diagnoses Diagnosis Polyuria - Primary documented in this encounter Additional Health Concerns Assessment Noted Time PHQ-9 Depression Total Score: 0 11/22/2019 10:49 AM CS T documented as of this encounter Care Teams Mill Beam Fitter Relationship Specialty Start Date End Date Margot Branham MD PCP - General Internal Medicine 10/28/[address] [place] [address] Carlota Landeros MD MD Urology 04/10/[address] [place], [place] [address] Michelle Montana, RN Registered Nurse Urology 05/07/17 Anh Costa APRN SUPPLIER DEVELOPMENT MANAGER Nurse Practitioner Nurse Practitioner 10/07 Martinez Galicia MD MD Ophthalmology 04/18/18 [address] [place], [place] [phone] Sabino Romano DPM MD Podiatry 08/11/18 [facility][note 3][address] [phone] Mehreen Johnston MD PhD MD Family Practice 11/15/[address] [place] [address] [phone] Margot Branham MD MD Internal Medicine 04/17/[address] [place] [address] [phone] Margot Branham MD Assigned PCP 09/15/[address] [place] [address] [phone] documented as of this encounter
--- OUTSIDE RECORDS SUMMARY | 2022-07-30 19:22 | XMS_ITS | Encounter Summary ---
:1945 Author Organization [facility] Address [address] [place] [address]. [place] [address] Care Team Providers Name Role Phone Carlota Landeros MD Unavailable Michelle Montana RN Unavailable Anh Costa NURSE STAFF SERVICE BAR CASHIER Unavailable Unavailable Martinez Galicia MD Unavailable Sabino Romano DPM Unavailable Mehreen Johnston MD PhD Unavailable [phone] LogMargot sadler MD Unavailable Martinez Galicia MD Unavailable LogMargot sadler MD Unavailable Margot Branham MD Primary Care Provider Encounter Details Date Type Department Care Team Description 12/09/2020 Travel Social History Tobacco Use Types Packs/Day [...] contact Unable to assess 12/09/2020 7:37 AM THERMAL ENGINEER with someone who was confirmed or suspected to have Coronavirus / COVID-19? documented as of this encounter Plan of Treatment Upcoming Encounters Date Type Specialty Care Team Description 09/10/2022 Office Visit Internal Medicine Margot Branham MD [address] [place] [address] [phone] (Wo rk) documented as of this encounter Visit Diagnoses Not on filedocumented in this encounter Additional Health Concerns Assessment Noted Time PHQ-9 Depression Total Score: 0 11/22/2019 10:49 AM CS T documented as of this encounter Care Teams Resident Associate Relationship Specialty Start Date End Date Margot Branham MD PCP - General Internal Medicine 10/28/[address] [place] [address] [phone] Carlota Landeros MD MD Urology 04/10/[address] [place], [place] [address] Michelle Montana, MODESTA Registered Nurse Urology 05/07/17 Anh Costa APRN Nurse Practitioner Nurse Practitioner 10/07/17 SERVICE BAR CASHIER Martinez Galicia MD Ophthalmology 04/18/[address] [place] [address] [phone] Sabino Romano DPM MD Podiatry 08/11/[address] [phone] Mehreen Johnston MD Family Practice 11/15/19 MD PhD [address] [place] [address] [phone] Margot Branham MD MD Internal Medicine 04/17/[address] [place] [address] [phone] Martinez Galicia, Assigned Surgical 07/26/20 MD Provider [address] [place] [address] [phone] Margot Branham MD Assigned PCP 09/15/[address] [address] documented as of this encounter
--- OUTSIDE RECORDS SUMMARY | 2022-07-30 19:22 | XMS_ITS | Encounter Summary ---
:1945 Author Organization [facility] Address [address] [place] [address]. [place] [address] Care Team Providers Name Role Phone Carlota Landeros MD Unavailable Michelle Montana RN Unavailable Anh Costa COORDINATING PRODUCER MANUFACTURING QUALITY INSPECTOR Unavailable Unavailable Martinez Galicia MD Unavailable Sabino Romano DPM Unavailable Kyle Roberts MD Primary Care Provider Mehreen Johnston MD PhD Unavailable [phone] Margot Branham MD Unavailable Martinez Galicia MD Unavailable Encounter Details Date Type Department Care Team Description 09/06/2020 Travel Social History Tobacco Use Types Packs/Day [...] with No / Unsure 09/06/2020 5:13 PM HOSPITAL PLAN ADMINISTRATOR someone who was confirmed or suspected to have Coronavirus / COVID-19? documented as of this encounter Plan of Treatment Upcoming Encounters Date Type Specialty Care Team Description 09/10/2022 Office Visit Internal Medicine Margot Branham MD [address] [place] [address] (Wo rk) documented as of this encounter Visit Diagnoses Not on filedocumented in this encounter Additional Health Concerns Assessment Noted Time PHQ-9 Depression Total Score: 0 11/22/2019 10:49 AM CS T documented as of this encounter Care Teams Welding Machine Operator Friction Relationship Specialty Start Date End Date Kyle Roberts MD PCP - General Family Practice 11/15/19 10/27/[address] [place], [place] [address] Carlota Landeros MD MD Urology 04/10/[address] [place], [place] [address] Michelle Montana, RN Registered Nurse Urology 05/07/17 Anh Costa APRN Nurse Practitioner Nurse Practitioner 10/07/17 MANUFACTURING QUALITY INSPECTOR Martinez Galicia MD Ophthalmology 04/18/[address] [place] [address] [phone] Sabino Romano DPM MD Podiatry 08/11/[address] [place] [address] [phone] Mehreen Johnston MD Family Practice 11/15/19 MD PhD [address] [place] [address] [phone] Margot Branham MD MD Internal Medicine 04/17/[address] [place] [address] [phone] Martinez Galicia, Assigned Surgical 07/26/20 MD Provider [address] [place] [address] [phone] documented as of this encounter
--- OUTSIDE RECORDS SUMMARY | 2022-07-30 19:22 | XMS_ITS | Encounter Summary ---
:1945 Author Organization [facility] Address [address] [place] [address]. [place] [address] Care Team Providers Name Role Phone Carlota Landeros MD Unavailable Michelle Montana RN Unavailable Anh Costa SERVICE LINE BUS CLEANER EXPERIMENTAL PREFLIGHT MECHANIC Unavailable Unavailable Martinez Galicia MD Unavailable Sabino Romano DPM Unavailable Mehreen Johnston MD PhD Unavailable [phone] LogMargot sadler MD Unavailable Martinez Galicia MD Unavailable LogMargot sadler MD Unavailable Margot Branham MD Primary Care Provider Encounter Details Date Type Department Care Team Description 01/06/2021 Travel Social History Tobacco Use Types Packs/Day Years Used Date Smoking Tobacco: Never Smokeless Tobacco: Never Alcohol Use Standard Drinks/Week Comments Yes 0 (1 standard drink = 0.6 oz pure alcoho l) wine few times/wk Sex Assigned at Date Recorded Female 12/20/2018 4:10 PM CDT COVID-19 Exposure Response Date Recorded In the last month, have you been in contact with No / Unsure 01/06/2021 7:27 AM CDT someone who was confirmed or suspected to have Coronavirus / COVID-19? documented as of this encounter Plan of Treatment Upcoming Encounters Date Type Specialty Care Team Description 09/10/2022 Office Visit Internal Medicine Margot Branham MD [address] [place] [address] [phone] (Wo rk) documented as of this encounter Visit Diagnoses Not on filedocumented in this encounter Additional Health Concerns Assessment Noted Time PHQ-9 Depression Total Score: 0 11/22/2019 10:49 AM CS T documented as of this encounter Care Teams Set Up Mechanic Stamping Machines Relationship Specialty Start Date End Date Margot Branham MD PCP - General Internal Medicine 10/28/[address] [place] [address] [phone] Carlota Landeros MD MD Urology 04/10/[address] [place], [place] [address] Michelle Montana, MODESTA Registered Nurse Urology 05/07/17 Anh Costa APRN Nurse Practitioner Nurse Practitioner 10/07/17 EXPERIMENTAL PREFLIGHT MECHANIC Martinez Galicia MD Ophthalmology 04/18/[address] [place] [address] [phone] Sabino Romano DPM MD Podiatry 08/11/[address] [phone] Mehreen Johnston MD Family Practice 11/15/[address] [place] [address] [phone] Margot Branham MD MD Internal Medicine 04/17/[address] [place] [address] [phone] Martinez Galicia, Assigned Surgical 07/26/20 MD Provider [address] [place] [address] [phone] Margot Branham MD Assigned PCP 09/15/[address] [address] documented as of this encounter
--- OUTSIDE RECORDS SUMMARY | 2022-07-30 19:22 | XMS_ITS | Encounter Summary ---
:1945 Author Organization [facility] Address [address] [place] [address]. [place] [address] Care Team Providers Name Role Phone Carlota Landeros MD Unavailable Michelle Montana RN Unavailable Anh Costa WATER PUMP INSTALLER FOREMAN SHIPPING DEPARTMENT Unavailable Unavailable Martinez Galicia MD Unavailable Sabino Romano DPM Unavailable Mehreen Johnston MD PhD Unavailable [phone] LogeaMargot man MD Unavailable LogMargot sadler MD Unavailable LogMargot sadler MD Primary Care Provider Reason for Visit Reason Comments Medication Refill Encounter Details Date Type Department Care Team Description 08/11/2021 Refill [facility] Yasmine Vang, Medication Refill Clinic Gisella OLIVEROS [address] [facility] 88 [address] [address],[facility] 300 [place], [place] [address] [phone] Social History Tobacco Use Types Packs/Day Years [...] Office Visit Internal Medicine Margot Branham MD [address] [place] [address] [phone] (Wo rk) documented as of this encounter Visit Diagnoses Diagnosis External hemorrhoids External hemorrhoids without mention of complication documented in this encounter Additional Health Concerns Assessment Noted Time PHQ-9 Depression Total Score: 0 11/22/2019 10:49 AM CS T documented as of this encounter Care Teams Laboratory Engineer Relationship Specialty Start Date End Date Margot Branham MD PCP - General Internal Medicine 10/28/[address] [place] [address] [phone] Carlota Landeros MD MD Urology 04/10/[address] [place] [address] Michelle Montana, MODESTA Registered Nurse Urology 05/07/17 Anh Costa APRN FOREMAN SHIPPING DEPARTMENT Nurse Practitioner Nurse Practitioner 10/07 Martinez Galicia MD MD Ophthalmology 04/18/[address] [place] [address] [phone] Sabino Romano DPM MD Podiatry 08/11/[address] [place] [address] [phone] Mehreen Johnston MD PhD MD Family Practice 11/15/[address] [place] [address] [phone] Margot Branham MD MD Internal Medicine 04/17/[address] [place] [address] [phone] Margot Branham MD Assigned PCP 09/15/[address] [address] documented as of this encounter
--- OUTSIDE RECORDS SUMMARY | 2022-07-30 19:22 | XMS_ITS | Encounter Summary ---
:1945 Author Organization [facility] Address [address] [place] [address]. [place] [address] Care Team Providers Name Role Phone Carlota Landeros MD Unavailable Michelle Montana RN Unavailable Anh Costa DRAWING SUPERVISOR LUNCHROOM ATTENDANT Unavailable Unavailable Martinez Galicia MD Unavailable Sabino Romano DPM Unavailable Kyle Roberts MD Primary Care Provider Mehreen Johnston MD PhD Unavailable [phone] Margot Branham MD Unavailable Martinez Galicia MD Unavailable Encounter Details Date Type Department Care Team Description 09/02/[address] [facility] Hyperl ipidemia LDL goal <[address] [address] Social History Tobacco Use Types Packs/Day [...] with No / Unsure 09/06/2020 5:13 PM E COMMERCE MARKETING MANAGER someone who was confirmed or suspected to have Coronavirus / COVID-19? documented as of this encounter Plan of Treatment Upcoming Encounters Date Type Specialty Care Team Description 09/10/2022 Office Visit Internal Medicine Margot Branham MD [address] [phone] (Wo rk) documented as of this encounter Procedures Procedure Name Priority Date/Time Associated Diagnosis Comme nts LIPID REFLEX TO Routine 09/02/2020 3:22 PM Hyperlipidemia LDL goal Results for this DIRECT LDL PANEL E COMMERCE MARKETING MANAGER <100 procedure a re in the results section. documented in this encounter Results Lipid panel reflex to direct LDL Fasting (09/02/2020 3:22 PM E COMMERCE MARKETING MANAGER) [facility] Method Time Signature Cholesterol 175 <200 mg/dL 09/02/2020 [facility] 6:27 PM [facility] Triglycerides 104 <150 mg/dL 09/02/2020 [facility] 6:27 PM [facility] HDL Cholesterol 83 >49 mg/dL 09/02/2020 [facility] 6:27 PM [facility] LDL Cholesterol 72 <100 mg/dL 09/02/2020 [facility] 6:27 PM [facility] Comment: Desirable: <100 mg/dl Non HDL Cholesterol 93 <130 mg/dL 09/02/2020 6:27 PM [facility] Specimen Anatomical Collection Method Collection Time Receive d Time (Source) Location / / Volume Laterality Blood specimen 09/02/2020 3:22 PM 020 3:23 (specimen) E COMMERCE MARKETING MANAGER PM E COMMERCE MARKETING MANAGER Anh Costa APRN LUNCHROOM ATTENDANT LAB - BLOOD ORDERABLES Performing Organization Address City/State/ZIP Code Phon e Number [address] [address] [facility] documented in this encounter Visit Diagnoses Diagnosis Hyperlipidemia LDL goal <100 Other and unspecified hyperlipidemia documented in this encounter Additional Health Concerns Assessment Noted Time PHQ-9 Depression Total Score: 0 11/22/2019 10:49 AM CS T documented as of this encounter Care Teams Sliver Lapper Relationship Specialty Start Date End Date Kyle Roberts MD PCP - General Family Practice 11/15/19 10/27/[address] [place], [place] [address] Carlota Landeros MD MD Urology 04/10/[address] [place], [place] [phone] Michelle Montana, RN Registered Nurse Urology 05/07/17 Anh Costa APRN Nurse Practitioner Nurse Practitioner 10/07/17 LUNCHROOM ATTENDANT Martinez Galicia MD Ophthalmology 04/18/[address] [place] [address] [phone] Sabino Romano DPM MD Podiatry 08/11/[address] [phone] Mehreen Johnston MD Family Practice 11/15/19 MD PhD [address] [place] [address] [phone] Margot Branham MD MD Internal Medicine 04/17/[address] [place] [address] Martinez Galicia, Assigned Surgical 07/26/20 MD Provider [address] [place] [address] [phone] documented as of this encounter
--- OUTSIDE RECORDS SUMMARY | 2022-07-30 19:22 | XMS_ITS | Encounter Summary ---
:1945 Author Organization [facility] Address [address] [place] [address]. [place] [address] Care Team Providers Name Role Phone Carlota Landeros MD Unavailable Michelle Montana RN Unavailable Anh Costa RESEARCH DIETITIAN SYSTEMS LEAD Unavailable Unavailable Martinez Galicia MD Unavailable Sabino Romano DPM Unavailable Mehreen Johnston MD PhD Unavailable [phone] LogMargot sadler MD Unavailable Martinez Galicia MD Unavailable Margot Branham MD Unavailable Margot Branham MD Primary Care Provider Encounter Details Date Type Department Care Team Description 01/08/2021 Travel Social History Tobacco Use Types Packs/Day [...] Office Visit Internal Medicine Margot Branham MD [address] [place] [address] [phone] (Wo rk) documented as of this encounter Visit Diagnoses Not on filedocumented in this encounter Additional Health Concerns Assessment Noted Time PHQ-9 Depression Total Score: 0 11/22/2019 10:49 AM CS T documented as of this encounter Care Teams Director Business Travel Relationship Specialty Start Date End Date Margot Branham MD PCP - General Internal Medicine 10/28/[address] [place] [address] [phone] Carlota Landeros MD MD Urology 04/10/[address] [place], [place] [address] Michelle Montana, MODESTA Registered Nurse Urology 05/07/17 Anh Costa APRN Nurse Practitioner Nurse Practitioner 10/07/17 SYSTEMS LEAD Martinez Galicia MD Ophthalmology 04/18/[address] [place] [address] [phone] Sabino Romano DPM MD Podiatry 08/11/[address] [phone] Mehreen Johnston MD Family Practice 11/15/[address] [place] [address] [phone] Margot Branham MD MD Internal Medicine 04/17/[address] [place] [address] [phone] Martinez Galicia, Assigned Surgical 07/26/20 MD Provider [address] [place] [address] [phone] Margot Branham MD Assigned PCP 09/15/[address] [phone] documented as of this encounter
--- OUTSIDE RECORDS SUMMARY | 2022-07-30 19:22 | XMS_ITS | Encounter Summary ---
:1945 Author Organization [facility] Address [address] [place] [address]. [place] [address] Care Team Providers Name Role Phone Carlota Landeros MD Unavailable Michelle Montana RN Unavailable Anh Costa PREFLIGHT INSPECTOR VALET MANAGER Unavailable Unavailable Martinez Galicia MD Unavailable Sabino Romano DPM Unavailable Kyle Roberts MD Primary Care Provider Mehreen Johnston MD PhD Unavailable [phone] Margot Branham MD Unavailable Martinez Galicia MD Unavailable Encounter Details Date Type Department Care Team Description 09/04/2020 Travel Social History Tobacco Use Types Packs/Day [...] with No / Unsure 09/04/2020 9:28 AM CORRECTIONAL AGENCY DIRECTOR someone who was confirmed or suspected to have Coronavirus / COVID-19? documented as of this encounter Plan of Treatment Upcoming Encounters Date Type Specialty Care Team Description 09/10/2022 Office Visit Internal Medicine Margot Branham MD [address] [place] [address] (Wo rk) documented as of this encounter Visit Diagnoses Not on filedocumented in this encounter Additional Health Concerns Assessment Noted Time PHQ-9 Depression Total Score: 0 11/22/2019 10:49 AM CS T documented as of this encounter Care Teams Alley Worker Relationship Specialty Start Date End Date Kyle Roberts MD PCP - General Family Practice 11/15/19 10/27/[address] [place], [place] [address] Carlota Landeros MD MD Urology 04/10/[address] [place], [place] [address] Michelle Montana, RN Registered Nurse Urology 05/07/17 Anh Costa APRN Nurse Practitioner Nurse Practitioner 10/07/17 VALET MANAGER Martinez Galicia MD Ophthalmology 04/18/[address] [place] [address] [phone] Sabino Romano DPM MD Podiatry 08/11/18 [address] [place] [address] [phone] Mehreen Johnston MD Family Practice 11/15/19 MD PhD [address] [place] [address] [phone] Margot Branham MD MD Internal Medicine 04/17/[address] [place] [address] [phone] Martinez Galicia, Assigned Surgical 07/26/20 MD Provider [address] [place] [address] [phone] documented as of this encounter
--- OUTSIDE RECORDS SUMMARY | 2022-07-30 19:22 | XMS_ITS | Encounter Summary ---
:1945 Author Organization [facility] Address [address] [place] [address]. [place] [address] Care Team Providers Name Role Phone Carlota Landeros MD Unavailable Michelle Montana RN Unavailable Anh Costa GATE SERVICES SUPERVISOR BIOMASS TECHNICIAN Unavailable Unavailable Martinez Galicia MD Unavailable Sabino Romano DPM Unavailable Mehreen Johnston MD PhD Unavailable [phone] Margot Branham MD Unavailable Margot Branham MD Unavailable Margot Branham MD Primary Care Provider Encounter Details Date Type Department Care Team Description 10/13/2021 Travel Social History Tobacco Use Types Packs/Day [...] with No / Unsure 10/13/2021 4:17 PM MANAGER BRAND someone who was confirmed or suspected to have Coronavirus / COVID-19? documented as of this encounter Plan of Treatment Upcoming Encounters Date Type Specialty Care Team Description 09/10/2022 Office Visit Internal Medicine LogMargot sadler MD [address] [place] [address] (Wo rk) documented as of this encounter Visit Diagnoses Not on filedocumented in this encounter Additional Health Concerns Assessment Noted Time PHQ-9 Depression Total Score: 0 11/22/2019 10:49 AM CS T documented as of this encounter Care Teams Roll Shop Supervisor Relationship Specialty Start Date End Date Margot Branham MD PCP - General Internal Medicine 10/28/[address] [place] [address] [phone] Carlota Landeros MD MD Urology 04/10/[address] [place] [address] Michelle Montana, RN Registered Nurse Urology 05/07/17 Anh Costa APRN BIOMASS TECHNICIAN Nurse Practitioner Nurse Practitioner 10/07 Martinez Galicia MD MD Ophthalmology 04/18/[address] [place] [address] Sabino Romano DPM MD Podiatry 08/11/[address] [phone] Mehreen Johnston MD PhD MD Family Practice 11/15/[address] [place] [address] Margot Branham MD MD Internal Medicine 04/17/[address] [place] [address] [phone] Margot Branham MD Assigned PCP 09/15/[address] [place] [phone] documented as of this encounter
--- OUTSIDE RECORDS SUMMARY | 2022-07-30 19:22 | XMS_ITS | Encounter Summary ---
:1945 Author Organization [facility] Address [address] [place] [address]. [place] [address] Care Team Providers Name Role Phone Carlota Landeros MD Unavailable Michelle Montana RN Unavailable Anh Costa BREAD OVEN OPERATOR BUSINESS TECHNOLOGY ARCHITECT Unavailable Unavailable Martinez Galicia MD Unavailable Sabino Romano DPM Unavailable Mehreen Johnston MD PhD Unavailable [phone] LogeaMargot man MD Unavailable Martinez Galicia MD Unavailable LogMargot sadler MD Unavailable Margot Branham MD Primary Care Provider Encounter Details Date Type Department Care Team Description 12/30/2020 Immunization [facility] Andrea Rice Vaccination [facility] [address] [place] [address] [address] [place], [place] [address] [phone] Social History Tobacco Use Types Packs/Day Years [...] contact Unable to assess 12/09/2020 7:37 AM FACILITY MAINTENANCE TECHNICIAN with someone who was confirmed or suspected to have Coronavirus / COVID-19? documented as of this encounter Plan of Treatment Upcoming Encounters Date Type Specialty Care Team Description 09/10/2022 Office Visit Internal Medicine Margot Branham MD [address] [place] [address] [phone] (Wo rk) documented as of this encounter Visit Diagnoses Not on filedocumented in this encounter Additional Health Concerns Assessment Noted Time PHQ-9 Depression Total Score: 0 11/22/2019 10:49 AM CS T documented as of this encounter Care Teams Facility Attendant Relationship Specialty Start Date End Date Margot Branham MD PCP - General Internal Medicine 10/28/[address] [place] [address] [phone] Carlota Landeros MD MD Urology 04/10/[address] [place], [place] [address] Michelle Montana, MODESTA Registered Nurse Urology 05/07/17 Anh Costa APRN Nurse Practitioner Nurse Practitioner 10/07/17 Martinez Hernandez MD Ophthalmology 04/18/[address] [place] [address] [phone] Sabino Romano DPM MD Podiatry 08/11/[address] [facility] [address] [phone] Mehreen Johnston MD Family Practice 11/15/[address] [place] [address] [phone] Margot Branham MD MD Internal Medicine 04/17/[address] [phone] Martinez Galicia, Assigned Surgical 07/26/20 MD Provider [address] [place] [address] [phone] Margot Branham MD Assigned PCP 09/15/[address] [phone] documented as of this encounter
--- OUTSIDE RECORDS SUMMARY | 2022-07-30 19:22 | XMS_ITS | Encounter Summary ---
:1945 Author Organization [place] Address [address] [place] [address]. [place] [address] Care Team Providers Name Role Phone Carlota Landeros MD Unavailable Michelle Montana RN Unavailable Anh Costa SURVEILLANCE OFFICER OVERHEAD DOOR TECHNICIAN Unavailable Unavailable Martinez Galicia MD Unavailable Sabino Romano DPM Unavailable Mehreen Johnston MD PhD Unavailable [phone] LogeaMargot man MD Unavailable LogeaMargot man MD Unavailable LogMargot sadler MD Primary Care Provider Encounter Details Date Type Department Care Team Description 10/13/2021 Orders Only [facility] Mae Wilkinson, Alan alisa (Primary Dx) [facility] [place] [address] [place] [phone] Social History Tobacco Use Types Packs/Day Years [...] with No / Unsure 10/13/2021 4:17 PM HUMAN RESOURCES MANAGER someone who was confirmed or suspected to have Coronavirus / COVID-19? documented as of this encounter Plan of Treatment Upcoming Encounters Date Type Specialty Care Team Description 09/10/2022 Office Visit Internal Medicine Margot Branham MD 909 [facility] 4[address] [place], [place] [phone] (Wo rk) documented as of this encounter Results (ABNORMAL) Urine Culture Aerobic Bacterial - lab collect (10/13/2021 4:40 PM HUMAN RESOURCES MANAGER) [facility] gist Method Time Signature Culture >100,000 CFU/mL JAKUB 10/17/2021 [facility] Enterococcus 10:42 AM HUMAN RESOURCES MANAGER LABORATORY faecalis (A) Specimen Anatomical Collection Method Collection Time Receive d Time (Source) Location / / Volume Laterality Urine MID-STREAM URINE Non-blood 10/13/2021 4:40 PM 10/13 5:38 SPECIMEN / Unknown Collection / HUMAN RESOURCES MANAGER PM HUMAN RESOURCES MANAGER Unknown Narrative [facility] - 10/17/2021 10:42 AM HUMAN RESOURCES MANAGER Susceptibility testing requested by Dr Brii Nur [phone] for ciprofloxacin. Organism Antibiotic Method Susceptibility Enterococcus faecalis Penicillin JAKUB 2.0 ug/mL: Susceptible Enterococcus faecalis Ampicillin JAKUB <=2.0 ug/m L: Susceptible Enterococcus faecalis Ciprofloxacin JAKUB <=0.5 ug/m L: Susceptible Comment: This is an appended report. These results have been appended to a previously final verified re port. Enterococcus faecalis Vancomycin JAKUB <=0.5 ug/m L: Susceptible Enterococcus faecalis Nitrofurantoin JAKUB 32.0 ug/mL : Susceptible Mae Wilkinson NP LAB - MICRO GENERAL ORDERABL ES Performing Organization Address City/State/ZIP Code Phon e Number [facility] [place] [address] Diag. Lab [address] [facility], Room D297 [facility] Infectious [place], [place] [phone] Diseases Diagnostic [id number], [facility] Lab (IDDL) [address] [facility], Room D297 documented in this encounter Visit Diagnoses Diagnosis Dysuria - Primary documented in this encounter Additional Health Concerns Assessment Noted Time PHQ-9 Depression Total Score: 0 11/22/2019 10:49 AM CS T documented as of this encounter Care Teams Master In Chancery Relationship Specialty Start Date End Date Margot Branham MD PCP - General Internal Medicine 10/28/[address] [place] [address] Carlota Landeros MD MD Urology 04/10/[address] [place], [place] [phone] Michelle Montana, MODESTA Registered Nurse Urology 05/07/17 Anh Costa APRN OVERHEAD DOOR TECHNICIAN Nurse Practitioner Nurse Practitioner 10/07 Martinez Galicia MD MD Ophthalmology 04/18/[address] [place] [address] [phone] Sabino Romano DPM MD Podiatry 08/11/[address] [phone] Mehreen Johnston MD PhD MD Family Practice 11/15/[address] [place] [address] 244255 Margot Branham MD MD Internal Medicine 04/17/[address] [place] [phone] Margot Branham MD Assigned PCP 09/15/[address] [place] [address] [phone] documented as of this encounter
--- OUTSIDE RECORDS SUMMARY | 2022-07-30 19:22 | XMS_ITS | Encounter Summary ---
:1945 Author Organization [facility] Address [address] [place] [address]. [place] [address] Care Team Providers Name Role Phone Carlota Landeros MD Unavailable Michelle Montana RN Unavailable Anh Costa APRN INFORMATION ENGINEER Unavailable Unavailable Martinez Galicia MD Unavailable Sabino Romano DPM Unavailable Kyle Roberts MD Primary Care Provider Mehreen Johnston MD PhD Unavailable [phone] LogMargot sadler MD Unavailable Martinez Galicia MD Unavailable LogMargot sadler MD Unavailable Encounter Details Date Type Department Care Team Description 09/06/2020 [facility] Only [facility] Anh Costa Hyperlipid emia LDL goal [facility] CLAUDIA Marsh INFORMATION ENGINEER <100 Cardiovascular Disease Prevention [address] [place] [address] Social History Tobacco Use Types [...] with No / Unsure 09/06/2020 5:13 PM ADMINISTRATIVE SECRETARY someone who was confirmed or suspected to have Coronavirus / COVID-19? documented as of this encounter Plan of Treatment Upcoming Encounters Date Type Specialty Care Team Description 09/10/2022 Office Visit Internal Medicine Margot Branham MD [address] [place] [address] [phone] (Wo rk) documented as of this encounter Visit Diagnoses Diagnosis Hyperlipidemia LDL goal <100 Other and unspecified hyperlipidemia documented in this encounter Additional Health Concerns Assessment Noted Time PHQ-9 Depression Total Score: 0 11/22/2019 10:49 AM CS T documented as of this encounter Care Teams Trick Rodeo Rider Relationship Specialty Start Date End Date Kyle Roberts MD PCP - General Family Practice 11/15/19 10/27/[address] [place], [place] [phone] Carlota Landeros MD MD Urology 04/10/[id number] [place], [place] [phone] Michelle Montana, MODESTA Registered Nurse Urology 05/07/17 Anh oCsta APRN Nurse Practitioner Nurse Practitioner 10/07/17 Martinez Hernandez MD Ophthalmology 04/18/[address] [place] [address] [phone] Sabino Romano DPM MD Podiatry 08/11/[address] [place] [phone] Mehreen Johnston MD Family Practice 11/15/[address] [place] [address] [phone] Margot Branham MD MD Internal Medicine 04/17/[address] [place] [phone] Martinez Galicia, Assigned Surgical 07/26/20 Provider [address] [place], [place] [phone] Margot Branham MD Assigned PCP 09/15/[address] [phone] documented as of this encounter
--- OUTSIDE RECORDS SUMMARY | 2022-07-30 19:22 | XMS_ITS | Encounter Summary ---
:1945 Author Organization [facility] Address [address] [place] [address]. [place] [address] Care Team Providers Name Role Phone Carloat Landeros MD Unavailable Michelle Montana RN Unavailable Anh Costa SHAREPOINT DEVELOPER DIRECTOR OF PHOTOGRAPHY Unavailable Unavailable Martinez Galicia MD Unavailable Sabino Romano DPM Unavailable Mehreen Johnston MD PhD Unavailable [phone] LogMargot sadler MD Unavailable Martinez Galicia MD Unavailable Margot Branham MD Unavailable Margot Branham MD Primary Care Provider Reason for Referral Therapeutic Procedure Only (Routine) - Closed Specialty Diagnoses / Procedures Referred By Contact Refer red To Contact Diagnoses AMOS (degenerative disc disease), lumbar Margot Branham MD [address] [place] [address] [phone] Referral ID Status Reason Start Date Expiration Date Visits Requ ested Visits Authorized [id number] Closed 01/01/2021 01/01/2022 1 1 ehab Therapy Physical Therapy (Routine) - Closed Specialty Diagnoses / Procedures Referred By Contact Refer red To Contact Diagnoses DDD (degenerative disc disease), lumbar Margot Branham MD [address] [phone] Referral ID Status Reason Start Date Expiration Date Visits Requ ested Visits Authorized [id number] Closed 01/01/2021 01/01/2022 1 1 Reason for Visit Reason Onset Date Comments Referral 12/31/2020 Encounter Details Date Type Department Care Team Description 12/31/2020 Telephone [facility] Margot Branhma MD Referral Internal Medicine [address] [place] [address] [place] [address] [place], [place] [phone] Social History Tobacco Use [...] contact Unable to assess 12/09/2020 7:37 AM 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 documented as of this encounter Miscellaneous Notes Telephone Encounter - Barbara Purvis LPN - 01/02/2021 8:29 AM CDT Referral faxed to [facility]. Barbara Purvis LPN 01/02/2021 8:31 AM Telephone Encounter - Irma Camacho - 01/01/2021 2:26 PM CDT [facility] thomson FAX- [phone] Waldo kapadia- no need to fax at this time, patient is checking with insurance to see if they have a separate process for this. Irma Camacho, EMT at 2:31 PM on 01/01/2021. Telephone Encounter - Letitia Herrera - 12/31/2020 12:25 PM CDT [facility] Phone Message May a detailed message be left on voicemail: yes Reason for Call: Order(s): Other: Reason for requested: * Patient states the referral for Physical Therapy was sent to the wrong place and wanting to have the referral go to [facility] [place], . * [facility] Patient is wanting to get a call back when this has been done, please advise- Patient states can send a message on Enohm also. Date needed: abimbola Provider name: Logeais Action Taken: Message routed to: [facility] Travel Screening: Not Applicable documented in this encounter Plan of Treatment Upcoming Encounters Date Type Specialty Care Team Description 09/10/2022 Office Visit Internal Medicine LogeaMargot man MD [address] [place] [phone] (Wo rk) Scheduled Referrals Name Type Priority Associated Diagnoses Order S chedule PHYSICAL THERAPY Referral Routine DDD (degenerative disc E xpected: REFERRAL disease), lumbar 01/01/2021, Expires: 01/01/2022 ACUPUNCTURE REFERRAL Referral Routine DDD (degenerative di sc Expected: 01/01/2021 disease), lumbar (Approximat e), Expires: 2021 documented as of this encounter Visit Diagnoses Diagnosis DDD (degenerative disc disease), lumbar - Primary Degeneration of lumbar or lumbosacral in tervertebral disc documented in this encounter Additional Health Concerns Assessment Noted Time PHQ-9 Depression Total Score: 0 11/22/2019 10:49 AM CS T documented as of this encounter Care Teams Fulfillment Specialist Relationship Specialty Start Date End Date LogMargot sadler MD PCP - General Internal Medicine 10/28/[address] [place] [address] [phone] Carlota Landeros MD MD Urology 04/10/[address] [place], [place] [address] Michelle Montana, RN Registered Nurse Urology 05/07/17 Anh Costa APRN Nurse Practitioner Nurse Practitioner 10/07/17 DIRECTOR OF PHOTOGRAPHY Martinez Galicia MD Ophthalmology 04/18/[address] [place] [address] [phone] Sabino Romano DPM MD Podiatry 08/11/18 [address] [place] [phone] Mehreen Johnston MD Family Practice 11/15/19 MD PhD [address] [place] [address] [phone] Margot Branham MD MD Internal Medicine 04/17/[address] [place] [address] [phone] Martinez Galicia, Assigned Surgical 07/26/20 MD Provider [address] [place] [address] [phone] Margot Branham MD Assigned PCP 09/15/[address] [place] [address] [phone] documented as of this encounter
--- OUTSIDE RECORDS SUMMARY | 2022-07-30 19:22 | XMS_ITS | Encounter Summary ---
:1945 Author Organization [facility] Address [address] [place] [address]. [place] [address] Care Team Providers Name Role Phone Carlota Landeros MD Unavailable Michelle Montana RN Unavailable Anh Costa SYNTHETIC SOIL BLOCKS PULPER PERSONAL CAREGIVER Unavailable Unavailable Martinez Galicia MD Unavailable Sabino Romano DPM Unavailable Mehreen Johnston MD PhD Unavailable [phone] LogMargot sadler MD Unavailable Margot Branham MD Unavailable Margot Branham MD Primary Care Provider Encounter Details Date Type Department Care Team Description 08/29/2021 Travel Social History Tobacco Use Types Packs/Day Years Used Date Smoking Tobacco: Never Smokeless Tobacco: Never Alcohol Use Standard Drinks/Week Comments Yes 0 (1 standard drink = 0.6 oz pure alcoho l) wine few times/wk Sex Assigned at Date Recorded Female 12/20/2018 4:10 PM CDT COVID-19 Exposure Response Date Recorded In the last month, have you been in contact Unable to assess 08/29/2021 4:16 PM 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 documented as of this encounter Plan of Treatment Upcoming Encounters Date Type Specialty Care Team Description 09/10/2022 Office Visit Internal Medicine LogMargot sadler MD [address] [place] [phone] (Wo rk) documented as of this encounter Visit Diagnoses Not on filedocumented in this encounter Additional Health Concerns Assessment Noted Time PHQ-9 Depression Total Score: 0 11/22/2019 10:49 AM CS T documented as of this encounter Care Teams Strategic Sourcing Specialist Relationship Specialty Start Date End Date Margot Branham MD PCP - General Internal Medicine 10/28/[address] [place] [address] [phone] Carlota Landeros MD MD Urology 04/10/[address] [place], [place] [phone] Michelle Montana, RN Registered Nurse Urology 05/07/17 Anh Costa APRN PERSONAL CAREGIVER Nurse Practitioner Nurse Practitioner 10/07 Martinez Galicia MD MD Ophthalmology 04/18/[address] [place] [address] [phone] Sabino Romano DPM MD Podiatry 08/11/[address] [phone] Mehreen Johnston MD PhD MD Family Practice 11/15/[address] [place] [phone] Margot Branham MD MD Internal Medicine 04/17/[address] [place] [address] [phone] Margot Branham MD Assigned PCP 09/15/[address] [place] [phone] documented as of this encounter
--- OUTSIDE RECORDS SUMMARY | 2022-07-30 19:22 | XMS_ITS | Encounter Summary ---
:1945 Author Organization [facility] Address [address] [place] [address]. [place] [address] Care Team Providers Name Role Phone Carlota Landeros MD Unavailable Michelle Montana RN Unavailable Anh Costa DRINKING WATER TECHNICIAN HAND TIRE TRIMMER Unavailable Unavailable Martinez Galicia MD Unavailable Sabino Romano DPM Unavailable Mehreen Johnston MD PhD Unavailable [phone] LogeaMargot man MD Unavailable Martinez Galicia MD Unavailable LogMargot sadler MD Unavailable LogMargot sadler MD Primary Care Provider Levy Hussein MD Unavailable Alosno Tejeda MD Unavailable Encounter Details Date Type Department Care Team Description 12/31/2020 Documentation Only INTERFACED REPORT Unknown, Provider Social History Tobacco Use Types Packs/Day Years [...] contact Unable to assess 12/09/2020 7:37 AM COAL PASSER with someone who was confirmed or suspected to have Coronavirus / COVID-19? documented as of this encounter Plan of Treatment Upcoming Encounters Date Type Specialty Care Team Description 09/10/2022 Office Visit Internal Medicine Margot Branham MD [address] [place] [address] [phone] (Wo rk) documented as of this encounter Visit Diagnoses Not on filedocumented in this encounter Additional Health Concerns Assessment Noted Time PHQ-9 Depression Total Score: 0 11/22/2019 10:49 AM CS T documented as of this encounter Care Teams Medical Collections Representative Relationship Specialty Start Date End Date Margot Branham MD PCP - General Internal Medicine 10/28/[address] [place] [address] [phone] Carlota Landeros MD MD Urology 04/10/[address] [place] [address] Michelle Montana, MODESTA Registered Nurse Urology 05/07/17 Anh Costa APRN Nurse Practitioner Nurse Practitioner 10/07/17 HAND TIRE TRIMMER Martinez Galicia MD Ophthalmology 04/18/[address] [place] [address] [phone] Sabino Romano DPM MD Podiatry 08/11/18 [facility] [address] [phone] Mehreen Johnston MD Family Practice 11/15/[address] [place] [address] [phone] Margot Branham MD MD Internal Medicine 04/17/[address] [place] [address] [phone] Martinez Galicia, Assigned Surgical 07/26/20 MD Provider [address] [place] [address] [phone] Mragot Branham MD Assigned PCP 09/15/[address] [place] [address] [phone] Levy Hussein MD Assigned Surgical 03/23/21 06/14/[address] [place] [address] Provider [place], [place] [phone] Alonso Tejeda MD MD Internal Medicine 06/19/[address] [place] [address] [phone] documented as of this encounter
--- OUTSIDE RECORDS SUMMARY | 2022-07-30 19:22 | XMS_ITS | Encounter Summary ---
:1945 Author Organization [facility] Address [address] [place] [address]. [place] [address] Care Team Providers Name Role Phone Carlota Landeros MD Unavailable Michelle Montana RN Unavailable Anh Costa CIVIL ENGINEERING DESIGNER ENROLLMENT MANAGEMENT MANAGER Unavailable Unavailable Martinez Galicia MD Unavailable Sabino Romano DPM Unavailable Mehreen Johnston MD PhD Unavailable [phone] LogeaMargot man MD Unavailable LogeaMargot man MD Unavailable LogMargot sadler MD Primary Care Provider Reason for Visit Reason Comments Urgent Care UTI Encounter Details Date Type Department Care Team Description 10/13/2021 Office Visit [facility] Osito Wilkinson Dysuria (Primary Dx); Urgent Care [place] Jody, ULTRASOUND COORDINATOR Kidney infection; [address] [facility] ERe S Fever, unspecified fever cause; [address] [place], [place] Antibiotic-[place] [phone] Social History Tobacco Use Types Packs/Day Years [...] with No / Unsure 10/13/2021 4:17 PM BENDER HAND someone who was confirmed or suspected to have Coronavirus / COVID-19? documented as of this encounter Last Filed Vital Signs Vital Sign Reading Time Taken Comments Blood Pressure 108/62 10/13/2021 4:51 PM B[facility]ER HAND Pulse 65 10/13/2021 4:51 PM B[facility]ER HAND Temperature 37.6 ??C (99.7 ??F) 10/13/2021 4:51 PM BENDER HAND Respiratory Rate 16 10/13/2021 4:51 PM BENDER HAND Oxygen Saturation 96% 10/13/2021 4:51 PM B[facility]ER HAND Inhaled Oxygen Concentration - - Weight 64.9 kg (143 lb) 10/13/2021 4:51 PM B[facility]ER HAND Height 167.6 cm (5' 6) 10/13/2021 4:51 PM BENDER HAND Body Mass Index 23.08 10/13/2021 4:51 PM B[facility] documented in this encounter Progress Notes Osito Wilkinson, ULTRASOUND COORDINATOR - 10/13/2021 4:20 PM CST Chief Complaint Patient presents with ??? Urgent Care ??? UTI SUBJECTIVE: Yamileth Sheikh is a 76 year old female who presents today for a possible UTI. She has symptoms of fever, dysuria, urgency, frequency and burning that have been going on for 3 day(s). Symptom timing described as gradual onset and worsening and moderate in severity. This patient does have a history of urinary tract infections. She has a history of bladder sleeve, mesh, [employer]tronic urinary device. There is no history of gross hematuria, flank pain, nausea or vomiting. Patient denies vaginal discharge, vaginal odor, vaginal itching and dyspareunia (pain in labia/pelvis). She declines any other reason for the fever such as a URI and prefers to start empiric antibiotics while waiting for culture. Took azo at home. Past Medical History: Diagnosis Date ??? Benign [...] Outpatient Medications Medication Sig Dispense Refill ??? ciprofloxacin (CIPRO) 500 MG tablet Take 1 tablet (500 mg) by mouth 2 times daily for 5 days 10 tablet 0 ??? fluconazole (DIFLUCAN) 150 MG tablet Take 1 tablet (150 mg) by mouth twice a week for 2 doses 2 tablet 0 ??? alendronate (FOSAMAX) 70 MG tablet TAKE 1 T PO Q 7 DAYS ON EMPTY STOMACH. REMAIN UPRIGHT FOR AT LEAST 30 MINUTES ??? amoxicillin (AMOXIL) 500 MG capsule Take 2 capsules by mouth as needed 1 hour before dental procedures ??? cholecalciferol (VITAMIN D3) 1000 UNIT tablet Take 2 tablets by mouth daily. ??? ciclopirox (LOPROX) 0.77 % cream APPLY TOPICALLY 2 TIMES DAILY TO FOOT AND TOENAIL. 90 g 5 ??? Coenzyme Q10 (COQ-10) 100 MG CAPS Take 100 mg by mouth daily ??? estradiol (ESTRACE) 0.1 MG/GM vaginal cream APPLY A SMALL AMOUNT EXTERNALLY TO VULVA THREE TIMESWEEKLY. 42.5 g 0 ??? estradiol (ESTRING) [address] 1 RING VAGINALLY EVERY 3 MONTHS. 1 each 3 ??? irbesartan (AVAPRO) 150 MG tablet Take 1 tablet (150 mg) by mouth daily 90 tablet 3 ??? LYSINE PO Take 1 tablet by mouth daily ??? OTHER MEDICAL SUPPLIES ROCÍO stockings knee length USE DIRECTED . ??? PROCTO-MED HC 2.5 % cream PLACE RECTALLY 2 TIMES DAILY DIRECTED 30 g 11 ??? rosuvastatin (CRESTOR) 5 MG tablet Take 1 tablet (5 mg) by mouth daily 90 tablet 3 ??? triamcinolone (KENALOG) 0.1 % external ointment Apply topically 2 times daily 15 g 0 ??? valACYclovir (VALTREX) 1000 mg tablet Take 1 tablet (1,000 mg) by mouth 2 times daily For one day at start of outbreak 10 tablet 1 Social History Tobacco Use ??? Smoking status: Never Smoker ??? Smokeless tobacco: Never Used Substance Use Topics ??? Alcohol use: Yes Comment: wine few times/wk Allergies Allergen Reactions ??? Codeine Nausea and Vomiting ??? Morphine Nausea and Vomiting Other reaction(s): GI intolerance, severe dry heaves ??? Oxycodone Other (See Comments) ??? Propofol Other (See Comments) and Nausea and Vomiting Other reaction(s): GI intolerance Extreme vertigo and nausea/vomiting ??? Perindopril Cough and Tinnitus Other reaction(s): Cough ??? Tramadol GI Disturbance ??? Latex Rash ??? Latex Rash ??? Nickel Rash ??? No Clinical Screening - See Comments Rash ??? Tape [Adhesive Tape] Rash Including steri-strips Review of Systems All systems negative except for those listed above in HPI. OBJECTIVE: BP 108/62 Pulse 65 Temp 99.7 ??F (37.6 ??C) (Temporal) Resp 16 Ht 1.676 m (5' 6) Wt 64.9 kg (143 lb) SpO2 96% BMI 23.08 kg/m?? Physical Exam Constitutional: General: She is not in acute distress. Appearance: She is well-developed. She is not diaphoretic. Abdominal: General: Bowel sounds are normal. Palpations: Abdomen is soft. Tenderness: There is no abdominal tenderness. There is no right CVA tenderness or left CVA tenderness. Musculoskeletal: General: Normal range of motion. Skin: General: Skin is warm and dry. Capillary Refill: Capillary refill takes less than 2 seconds. Coloration: Skin is not pale. Neurological: General: No focal deficit present. Mental Status: She is alert and oriented to person, place, and time. Psychiatric: Mood and Affect: Mood normal. Behavior: Behavior normal. Results for orders placed or performed in visit on 10/13/21 Urine Microscopic Status: Abnormal Result Value Ref Range Bacteria Urine Moderate (A) None Seen /HPF RBC Urine 10-25 (A) 0-2 /HPF /HPF WBC Urine 0-5 0-5 /HPF /HPF Squamous Epithelials Urine Few (A) None Seen /LPF Mucus Urine Present (A) None Seen /LPF Narrative Urine Culture not indicated CBC with platelets and differential Status: None (In process) Narrative The following orders were created for panel order CBC with platelets and differential. Procedure Abnormality Status --------- ------ CBC with platelets and d...[[id number]] In process Please view results for these tests on the individual orders. ASSESSMENT: ICD-10-CM 1. Dysuria R30.0 Urine Microscopic ciprofloxacin (CIPRO) 500 MG tablet CBC with platelets and differential Comprehensive metabolic panel (BMP + Alb, Alk Phos, ALT, AST, Total. Bili, TP) CBC with platelets and differential Comprehensive metabolic panel (BMP + Alb, Alk Phos, ALT, AST, Total. Bili, TP) CANCELED: UA macro with reflex to Microscopic and Culture - Clinc Collect 2. Kidney infection N15.9 ciprofloxacin (CIPRO) 500 MG tablet 3. Fever, unspecified fever cause R50.9 ciprofloxacin (CIPRO) 500 MG tablet CBC with platelets and differential Comprehensive metabolic panel (BMP + Alb, Alk Phos, ALT, AST, Total. Bili, TP) CBC with platelets and differential Comprehensive metabolic panel (BMP + Alb, Alk Phos, ALT, AST, Total. Bili, TP) 4. Antibiotic-induced yeast infection B37.9 fluconazole (DIFLUCAN) 150 MG tablet T36.95XA PLAN: Cipro for empiric treatment of febrile kidney infection. CBC and CMP pending, we call for anything abnormal. Urine culture pending, we will call you only if culture shows resistance and change of antibiotic isrequired or if no growth to stop antibiotics and to follow-up with your primary care provider. May use over the counter AZO pain relief or Uristat (phenazopyridine) for urinary burning but do notuse for 24 hours before future urine tests. Drink plenty of fluids. Limit caffeine and alcohol as these are bladder irritants. May take tylenol as needed for discomfort. If you develop any vomiting, high fevers or lower back pain, these can be signs of a kidney infection and you should be seen in urgent care or in the ER. Prevention of future infections by drinking cranberry juice, urination after intercourse and wiping from front to back after using the toilet. Please follow up with primary care provider if symptoms return, if you're not improving, worsening or new symptoms or for any adverse reactions to medications. Follow up with primary care provider with any problems, questions or concerns or if symptoms worsen or fail to improve. Patient agreed to plan and verbalized understanding. [facility] ER [facility] documented in this encounter Miscellaneous Notes Result Encounter Note - Lisa Nur MD - 10/13/2021 4:20 PM CST 10/17/2021 10:43 AM CSTBack to Top Please call patient -The bacteria that is causing her urine infection that grew in your urine culture can be treated with the ciprofloxacin you are taking now, but will need to add an additional antibiotic, amoxicillin to completely ??treat the infection. ?? I sent a prescription for amoxicillin to the [facility]. She need to complete the 10 days of the ciprofloxacin and the 10 days of the amoxicillin. I sent a my chart message to her as well. ?? Thank you, Lisa Nur MD ER HAND Result Encounter Note - Jana Mora CMA - 10/13/2021 4:20 PM CST Pt was called and message was left notifying her of additional medication (Amoxicillin) being sent to Pharmacy. Jana Dupree MA Pt will call clinic with any questions or concerns. Jana Dupree MA ER HAND Addendum Note - Osito Wilkinson NP - 10/13/2021 4:20 PM BENDER HAND Addended by: OSITO WILKINSON on: 10/13/2021 05:23 PM Modules accepted: Orders ER HAND documented in this encounter Plan of Treatment Upcoming Encounters Date Type Specialty Care Team Description 09/10/2022 Office Visit Internal Medicine LogeaisMargot MD [address] [id number] (Wo rk) documented as of this encounter Procedures Procedure Name Priority Date/Time Associated Comments Diagnosis CBC WITH PLATELETS AND Routine 10/13/2021 5:16 PM Dysuri a Results for this DIFFERENTIAL BENDER HAND Fever, unspecified procedure are in fever cause the results section. CBC WITH PLATELETS & Routine 10/13/2021 5:16 PM Dysuria Results for this DIFFERENTIAL BENDER HAND Fever, unspecified procedure are in fever cause the results section. COMPREHENSIVE Routine 10/13/2021 5:16 PM Dysuria Results for this METABOLIC PANEL BENDER HAND Fever, unspecified proced ure are in fever cause the results section. URINE MICROSCOPIC Routine 10/13/2021 4:40 PM Dysuria Resu lts for this BENDER HAND procedure are i n the results section. URINE CULTURE Routine 10/13/2021 4:40 PM Dysuria Results for this BENDER HAND procedure are i n the results section. documented in this encounter Results CBC with platelets and differential (10/13/2021 5:16 PM BENDER HAND) Analysis Performed At Patho logist Time Signature WBC Count 6.2 4.0 - 11.0 10/13/2021 [facility] 10e3/uL 5:21 PM BENDER HAND RBC Count 4.74 3.80 - 10/13/2021 [facility] 5.20 5:21 PM [facility] 10e6/uL Hemoglobin 14.4 11.7 - 10/13/2021 [facility] 15.7 g/dL 5:21 PM BENDER HAND Hematocrit 42.9 35.0 - 10/13/2021 [facility] 47.0 % 5:21 PM B[facility]ER HAND MCV 91 78 - 100 10/13/2021 [facility] fL 5:21 PM B[facility]ER HAND MCH 30.4 26.5 - 10/13/2021 [facility] 33.0 pg 5:21 PM B[facility]ER HAND MCHC 33.6 31.5 - 10/13/2021 [facility] 36.5 g/dL 5:21 PM BENDER HAND RDW 12.7 10.0 - 10/13/2021 [facility] 15.0 % 5:21 PM B[facility] HAND Platelet Count 173 150 - 450 10/13/2021 [facility] 10e3/uL 5:21 PM B[facility]ER HAND % Neutrophils 68 % 10/13/2021 [facility] 5:21 PM B[facility]ER HAND % Lymphocytes 24 % 10/13/2021 [facility] 5:21 PM B[facility]ER HAND % Monocytes 6 % 10/13/2021 [facility] 5:21 PM B[facility]ER HAND % Eosinophils 1 % 10/13/2021 [facility] 5:21 PM B[facility]ER HAND % Basophils 0 % 10/13/2021 [facility] 5:21 PM [facility]ER HAND % Immature 0 % 10/13/2021 [facility] Granulocytes 5:21 PM BENDER HAND Absolute 4.2 1.6 - 8.3 10/13/2021 [facility] Neutrophils 10e3/uL 5:21 PM BENDER HAND Absolute 1.5 0.8 - 5.3 10/13/2021 [facility] Lymphocytes 10e3/uL 5:21 PM BENDER HAND Absolute 0.4 0.0 - 1.3 10/13/2021 [facility] Monocytes 10e3/uL 5:21 PM BENDER HAND Absolute 0.1 0.0 - 0.7 10/13/2021 [facility] Eosinophils 10e3/uL 5:21 PM BENDER HAND Absolute 0.0 0.0 - 0.2 10/13/2021 [facility] Basophils 10e3/uL 5:21 PM BENDER HAND Absolute Immature 0.0 <=0.4 10/13/2021 [facility] Granulocytes 10e3/uL 5:21 PM BENDER HAND Specimen Anatomical Collection Method / Collection Time Recei yenny Time (Source) Location / Volume Laterality Blood STRUCTURE OF RIGHT Venipuncture / 10/13/2021 5:16 10/04 5:16 UPPER LIMB / Unknown PM B[facility]ER [facility] PM [facility] HAND Unknown Osito Wilkinson NP LAB - BLOOD ORDERABLES Performing Organization Address City/State/ZIP Code [place] [address] [facility] [facility], 1st floor of clinic[facility] [place] [address], [facility] [facility] number, 1st floor of clinic) (ABNORMAL) Comprehensive metabolic panel (BMP + Alb, Alk Phos, ALT, AST, Total. Bili, TP) (10/13/2021 5:16 PM BENDER HAND) Analysis Performed At Patho logist Time Signature Sodium 140 133 - 144 10/14/2021 [facility] mmol/L 4:31 PM B[facility] HAND Potassium 4.0 3.4 - 5.3 10/14/2021 [facility] mmol/L 4:31 PM [facility] Chloride 108 94 - 109 10/14/2021 [facility] mmol/L 4:31 PM [facility] Carbon Dioxide 26 20 - 32 10/14/2021 [facility] (CO2) mmol/L 4:31 PM [facility] Anion Gap 6 3 - 14 10/14/2021 [facility] mmol/L 4:31 PM [facility] Urea Nitrogen 13 7 - 30 10/14/2021 [facility] mg/dL 4:31 PM [facility] Creatinine 1.02 0.52 - 10/14/2021 [facility] 1.04 mg/dL 4:31 PM B[facility] HAND Calcium 9.1 8.5 - 10.1 10/14/2021 [facility] mg/dL 4:31 PM [facility] Glucose 99 70 - 99 10/14/2021 [facility] mg/dL 4:31 PM [facility] Alkaline 68 40 - 150 10/14/2021 [facility] Phosphatase U/L 4:31 PM B[facility] AST 19 0 - 45 U/L 10/14/2021 [facility] 4:31 PM [facility] ALT 26 0 - 50 U/L 10/14/2021 [facility] 4:31 PM [facility] Protein Total 6.8 6.8 - 8.8 10/14/2021 [facility] g/dL 4:31 PM [facility] Albumin 3.8 3.4 - 5.0 10/14/2021 [facility] g/dL 4:31 PM B[facility] HAND Bilirubin Total 0.6 0.2 - 1.3 10/14/2021 [facility] mg/dL 4:31 PM B[facility] GFR Estimate 57 (L) >60 10/14/2021 [facility] mL/min/1.7 4:31 PM B[facility]ER HAND 3m2 Comment: Effective September 23, 2021 eGF Rcr in adults is calculated using the 2020 CKD-EPI creatinine equation which includ es age and gender (Manufacturer Representative et al., NEJM, DOI: 10.1056/NCXAqr0525282) Specimen Anatomical Collection Method / Collection Time Recei yenny Time (Source) Location / Volume Laterality Blood STRUCTURE OF RIGHT Venipuncture / 10/13/2021 5:16 10/04 5:16 UPPER LIMB / Unknown PM [facility] PM [facility] Unknown Osito Wilkinson NP LAB - BLOOD ORDERABLES Performing Organization Address City/State/ZIP Code Phon e Number [facility] [place], [place] [phone] [facility] [address] Lab (no room number, 1st floor of clinic) [place], [place] [phone] [facility] [phone] [place] [facility] [address] Lab (no room number, 1st floor of clinic) (ABNORMAL) Urine Culture Aerobic Bacterial - lab collect (10/13/2021 4:40 PM BENDER HAND) [facility] Revelation Method Time Signature Culture >100,000 CFU/mL JAKUB 10/17/2021 [facility] Enterococcus 10:42 AM B[facility] LABORATORY faecalis (A) Specimen Anatomical Collection Method Collection Time Receive d Time (Source) Location / / Volume Laterality Urine MID-STREAM URINE Non-blood 10/13/2021 4:40 PM 10/13 5:38 SPECIMEN / Unknown Collection / [facility]ER [facility] PM [facility] Unknown Narrative [facility] - 10/17/2021 10:42 AM BENDER HAND Susceptibility testing requested by Dr Brii Nur [phone] for ciprofloxacin. Organism Antibiotic Method Susceptibility Enterococcus faecalis Penicillin JAKUB 2.0 ug/mL: Susceptible Enterococcus faecalis Ampicillin JAKUB <=2.0 ug/m L: Susceptible Enterococcus faecalis Ciprofloxacin JAKUB <=0.5 ug/m L: Susceptible Comment: This is an appended report. These results have been appended to a previously final verified re port. Enterococcus faecalis Vancomycin JAKUB <=0.5 ug/m L: Susceptible Enterococcus faecalis Nitrofurantoin JAKUB 32.0 ug/mL : Susceptible Osito Wilkinson NP LAB - MICRO GENERAL ORDERABL ES Performing Organization Address City/State/ZIP Code Phon e Number [facility] [place] [id number] Di[facility] Lab [address] [facility], [address] [facility] Infectious [place], [place] [phone] Diseases Diagnostic [phone], [facility] Lab (IDDL) [address] [facility], Room [address]297 (ABNORMAL) Urine Microscopic (10/13/2021 4:40 PM BENDER HAND) [employer] Method Time Signature Bacteria Urine Moderate (A) None Seen JAKUB 10/13/2021 [facility] /HPF 4:56 PM BENDER HAND RBC Urine 10-25 (A) 0-2 /HPF JAKUB 10/13/2021 [facility] /HPF 4:56 PM BENDER HAND WBC Urine 0-5 0-5 /HPF JAKUB 10/13/2021 [facility] /HPF 4:56 PM BENDER HAND Squamous Few (A) None Seen JAKUB 10/13/2021 [facility] Epithelials /LPF 4:56 PM BENDER HAND Urine Mucus Urine Present (A) None Seen JAKUB 10/13/2021 [facility] /LPF 4:56 PM BENDER HAND Specimen Anatomical Collection Method Collection Time Receive d Time (Source) Location / / Volume Laterality Urine MID-STREAM URINE Non-blood 10/13/2021 4:40 PM 10/13 4:41 SPECIMEN / Unknown Collection / BENDER HAND PM [facility]ER HAND Unknown Narrative [facility] - 10/13/2021 4:56 PM BENDER HAND Urine Culture not indicated Mary Jo Wright LAB - URINE ORDERABLES Performing Organization Address City/State/ZIP Code [place] [address] [phone] [facility] [address] [facility] Lab (no room number, 1st floor of clinic) [place] [address], [facility] [phone] [facility] [address] [facility] Lab (no room number, 1st floor of clinic) documented in this encounter Visit Diagnoses Diagnosis Dysuria - Primary Kidney infection Infection of kidney, unspecified Fever, unspecified fever cause Antibiotic-induced yeast infection documented in this encounter Additional Health Concerns Assessment Noted Time PHQ-9 Depression Total Score: 0 11/22/2019 10:49 AM CS T documented as of this encounter Care Teams Patient Support Specialist Relationship Specialty Start Date End Date Margot Branham MD PCP - General Internal Medicine 10/28/[address] [phone] Carlota Landeros MD MD Urology 04/10/[address] [place] [address] Michelle Montana, MODESTA Registered Nurse Urology 05/07/17 Anh Costa APRN ENROLLMENT MANAGEMENT MANAGER Nurse Practitioner Nurse Practitioner 10/07 Martinez Galicia MD MD Ophthalmology 04/18/18 [address] [place], [place] [phone] Sabino Romano DPM MD Podiatry 08/11/18 [facility] [address] [address] Mehreen Johnston MD PhD MD Family Practice 11/15/[address] [place] [address] [phone] Margot Branham MD MD Internal Medicine 04/17/[address] [place] [address] [phone] Margot Branham MD Assigned PCP 09/15/[address] [place] [address] [phone] documented as of this encounter
--- OUTSIDE RECORDS SUMMARY | 2022-07-30 19:22 | XMS_ITS | Encounter Summary ---
:1945 Author Organization [facility] Address [address] [place] [address]. [place] [address] Care Team Providers Name Role Phone Carlota Landeros MD Unavailable Michelle Montana RN Unavailable Anh Costa PHLEBOTOMY SERVICES TECHNICIAN SUGAR MIXER Unavailable Unavailable Martinez Galicia MD Unavailable Sabino Romano DPM Unavailable Mehreen Johnston MD PhD Unavailable [phone] LogeaMargot man MD Unavailable Martinez Galicia MD Unavailable LogMargot sadler MD Unavailable LogMargot sadler MD Primary Care Provider Encounter Details Date Type Department Care Team Description 01/06/2021 Therapy Visit [facility] Kevin Wynn DDD ([facility], PT disc disease), [facility] [address] [place] [address] [phone] Social History Tobacco Use Types Packs/Day Years [...] as of this encounter Progress Notes MellisaKevin clemens, PT - 01/06/2021 7:30 AM CDT Physical Therapy Initial Evaluation Subjective: The history is provided by the patient. No speech and language tutor was used. Therapist Generated HPI Evaluation Problem details: December 2020. Pt started having LBP during Summer 2019. Denies specific RADHA. She had x-ray which showed arthritis in low back. She had PT in late 2019 which helped her low back improve. Pt underwent L ALEKS surgery at [facility] in [place] on 09/11/21. She notes her LBP increased again while resting and recovering from her hip surgery. Pt reports history of R ALEKS in 2006. She dislocated her Rhip following surgery so she has been very cautious following her L ALEKS surgery. Pt also has wire going across L low back for bladder stimulator.. Type of problem: Lumbar. This is a chronic condition. Condition occurred with: Insidious onset. Where condition occurred: for unknown reasons. Patient reports pain: Lumbar spine left and lumbar spine right. Pain is described as other and aching (soreness) and is intermittent. Pain radiates to: Gluteals left and thigh left. Pain is worse in the A.M.. Since onset symptoms are gradually worsening. Associated symptoms: Numbness and tingling (posterior R leg from buttock to foot, posterior L thigh). Symptoms are exacerbated by standing, bending and other (transfers) and relieved by rest and analgesics. Special tests included: X-ray. Barriers include: Lives alone. Patient Health History Yamileth Sheikh being seen for lower back. Pain is reported as 6/10 on pain scale. General health as reported by patient is good. Pertinent medical history includes: high blood pressure, implanted device, incontinence, menopausal and overweight. Red flags: None as reported by patient. Medical allergies: other and latex. Other medical allergies details: burt, opioid pain meds. Surgeries include: Orthopedic surgery. Other surgery history details: B ALEKS, shoulder. Current medications: High blood pressure medication, other and pain medication. Other medications details: statin. 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 Primary job tasks include: Driving, lifting/carrying, pushing/pulling, repetitive tasks and prolonged standing. Objective: Standing Alignment: Cervical/Thoracic: Forward head Shoulder/UE: Rounded shoulders Lumbar: Lordosis decr Gait: Decreased B hip extension (more limited on L) Gait Type: Antalgic Assistive Devices: None Deviations: Ankle: Push off decr L Physical Exam Indra Lumbar Evaluation Posture: Sitting: poor Standing: poor Lordosis: Reduced Lateral Shift: nil Correction of Posture: better Static Tests: Lying Prone in Extension: prone lying: decrease L thigh, no better Conclusion: derangement (testing derangement) Principle of Treatment: Posture Correction: posture correction Other: TA set with pelvic tilt in supine ROS Assessment/Plan: Patient is a 75 year old female with lumbar complaints. Patient has the following significant findings with corresponding treatment plan. Diagnosis 1: Lumbar DDD Pain - hot/cold therapy, manual therapy, self management, education, directional preference exercise and home program Decreased ROM/flexibility - manual therapy, therapeutic exercise and home program Decreased proprioception - neuro re-education, therapeutic activities and home program Impaired gait - gait training and home program Impaired muscle performance - neuro re-education and home program Decreased function - therapeutic activities and home program Impaired posture - neuro re-education and home program Therapy Evaluation Codes: 1) History comprised of: Personal factors that impact the plan of care: Time since onset of symptoms. Comorbidity factors that impact the plan of care are: High blood pressure, Implanted device, Menopausal, Numbness/tingling and Overweight. Medications impacting care: High blood pressure and Pain. 2) Examination of Body Systems comprised of: Body structures and functions that impact the plan of care: Lumbar spine. Activity limitations that impact the plan of care are: Bending, Cooking, Dressing, Lifting, Sitting, Standing and Walking. 3) Clinical presentation characteristics are: Stable/Uncomplicated. 4) Decision-Making Low complexity using standardized patient assessment instrument and/or measureable assessment of functional outcome. Cumulative Therapy Evaluation is: Low complexity. Previous and current functional limitations: (See Goal Flow Sheet for this information) Short term and snf goals: (See Goal Flow Sheet for this [...] normal activities. Rehab potential is good. Frequency: 2 X week, once daily Duration: for 1 week tapering to 1 X a week over 6 weeks Discharge Plan: Achieve all LTG. Independent in home treatment program. Reach maximal therapeutic benefit. Please refer to the daily flowsheet for treatment today, total treatment time and time spent performing 1:1 timed codes. documented in this encounter Plan of Treatment Upcoming Encounters Date Type Specialty Care Team Description 09/10/2022 Office Visit Internal Medicine Margot Branham MD [address] [place] [address] [phone] (Wo rk) documented as of this encounter Procedures Procedure Name Priority Date/Time Associated Diagnosis Comme nts KS THERAPEUTIC Routine 01/08/2021 1:07 PM DDD (degenerative di sc EXERCISES. EA 15 MIN CDT disease), lumbar documented in this encounter Visit Diagnoses Diagnosis DDD (degenerative disc disease), lumbar Degeneration of lumbar or lumbosacral in tervertebral disc documented in this encounter Additional Health Concerns Assessment Noted Time PHQ-9 Depression Total Score: 0 11/22/2019 10:49 AM CS T documented as of this encounter Care Teams Peanut Sheller Relationship Specialty Start Date End Date Margot Branham MD PCP - General Internal Medicine 10/28/[address] [place] [address] [phone] Carlota Landeros MD MD Urology 04/10/[address] [place], [place] [address] Michelle Montana, MODESTA Registered Nurse Urology 05/07/17 Anh Costa APRN Nurse Practitioner Nurse Practitioner 10/07/17 Martinez Hernandez MD Ophthalmology 04/18/[address] [place] [address] [phone] Sabino Romano DPM MD Podiatry 08/11/[address] [phone] Mehreen Johnston MD Family Practice 11/15/19 MD PhD [address] [place] [address] Margot Branham MD MD Internal Medicine 04/17/[address] [place] [address] [phone] Martinez Galicia, Assigned Surgical 07/26/20 MD Provider [address] [place] [address] [phone] Margot Branham MD Assigned PCP 09/15/[address] [place] [address] [phone] documented as of this encounter
--- OUTSIDE RECORDS SUMMARY | 2022-07-30 19:22 | XMS_ITS | Encounter Summary ---
:1945 Author Organization [facility] Address [address] [place] [address]. [place] [address] Care Team Providers Name Role Phone Carlota Landeros MD Unavailable Michelle Montana RN Unavailable Anh Costa MANAGER [address] SUPERVISOR OF ENGINES Unavailable Unavailable Martinez Galicia MD Unavailable Sabino Romano DPM Unavailable Mehreen Johnston MD PhD Unavailable [phone] LogeaMargot man MD Unavailable Martinez Galicia MD Unavailable LogMargot sadler MD Unavailable Margot Branham MD Primary Care Provider Encounter Details Date Type Department Care Team Description 12/09/2020 [facility] [address] [place], [place] [phone] Social History Tobacco Use Types Packs/Day Years [...] contact Unable to assess 12/09/2020 7:37 AM TRADER with someone who was confirmed or suspected to have Coronavirus / COVID-19? documented as of this encounter Plan of Treatment Upcoming Encounters Date Type Specialty Care Team Description 09/10/2022 Office Visit Internal Medicine Margot Branham MD [address] [place] [address] [phone] (Wo rk) documented as of this encounter Visit Diagnoses Not on filedocumented in this encounter Additional Health Concerns Assessment Noted Time PHQ-9 Depression Total Score: 0 11/22/2019 10:49 AM CS T documented as of this encounter Care Teams Executive Manager Relationship Specialty Start Date End Date Margot Branham MD PCP - General Internal Medicine 10/28/[address] [place] [address] [phone] Carlota Landeros MD MD Urology 04/10/[address] [place], [place] [address] Michelle Montana, MODESTA Registered Nurse Urology 05/07/17 Anh Costa APRN Nurse Practitioner Nurse Practitioner 10/07/17 RO[address] SUPERVISOR OF ENGINES Martinez Galicia MD Ophthalmology 04/18/[address] [place] [address] [phone] Sabino Romano DPM MD Podiatry 08/11/18 [facility] [address] [phone] Mehreen Johnston MD Family Practice 11/15/[address] [place] [address] [phone] Margot Branham MD MD Internal Medicine 04/17/[address] [place] [address] [phone] Martinez Galicia Assigned Surgical 07/26/20 MD Provider [address] [place] [address] Margot Branham MD Assigned PCP 09/15/[address] [address] documented as of this encounter
--- OUTSIDE RECORDS SUMMARY | 2022-07-30 19:22 | XMS_ITS | Encounter Summary ---
:1945 Author Organization [facility] Address [address] [place] [address]. [place] [address] Care Team Providers Name Role Phone Carlota Landeros MD Unavailable Michelle Montana RN Unavailable Anh Costa STONE SANDBLASTER COUPON AND BOND COLLECTION CLERK Unavailable Unavailable Martinez Galicia MD Unavailable Sabino Romano DPM Unavailable Mehreen Johnston MD PhD Unavailable [phone] LogeaMargot man MD Unavailable LogeaMargot man MD Unavailable LogMargot sadler MD Primary Care Provider Reason for Visit Reason Comments Urgent Care Mouth Problem sore in each corner of mouth . Encounter Details Date Type Department Care Team Description 08/15/2021 Office Visit [facility] Maranda Lowry ar cheilitis Urgent Care Reed Kamara MD (Primary Dx) [facility] [address] [place] [address] [place], [place] [phone] (Wo rk) [address] [phone] Social History Tobacco Use Types Packs/Day Years [...] with No / Unsure 08/15/2021 10:58 AM TOOL LIAISON someone who was confirmed or suspected to have Coronavirus / COVID-19? documented as of this encounter Last Filed Vital Signs Vital Sign Reading Time Taken Comments Blood Pressure 114/64 08/15/2021 11:35 AM TOOL LIAISON Pulse 71 08/15/2021 11:35 AM TOOL LIAISON Temperature 37.1 ??C (98.8 ??F) 08/15/2021 11:35 AM TOOL LIAISON Respiratory Rate 15 08/15/2021 11:35 AM TOOL LIAISON Oxygen Saturation 97% 08/15/2021 11:35 AM TOOL LIAISON Inhaled Oxygen Concentration - - Weight 66.2 kg (146 lb) 08/15/2021 11:35 AM TOOL LIAISON Height 168.9 cm (5' 6.5) 08/15/2021 11:35 AM TOOL LIAISON Body Mass Index 23.21 08/15/2021 11:35 AM TOOL LIAISON documented in this encounter Patient Instructions Patient InstructionsMaranda Lowry MD - 08/15/2021 11:00 AM TOOL LIAISON Treatment??--General measures to reduce moisture pooling at the corners of the mouth include: ?Improving denture fit and cleaning ?Maintaining optimal oral hygiene ?Use of barrier creams Vaseline/petrolatum Rinse & wash off toothpaste Steroid ointment - last resort . 2 x day for 1-2 weeks. LIAISON documented in this encounter Progress Notes Maranda Lowry MD - 08/15/2021 11:00 AM CST Images from the original note were not included. ASSESSMENT AND PLAN: ICD-10-CM 1. Angular cheilitis K13.0 triamcinolone (KENALOG) 0.1 % external ointment Discussed not wearing retainer at night as may contribute to drooling. Patient Instructions Treatment??--General measures to reduce moisture pooling at the corners of the mouth include: ?Improving denture fit and cleaning ?Maintaining optimal oral hygiene ?Use of barrier creams Vaseline/petrolatum Rinse & wash off toothpaste Steroid ointment - last resort . 2 x day for 1-2 weeks. Return in about 1 week (around 08/22/2021), or if symptoms worsen or fail to improve. Maranda Lowry MD [facility] Subjective Yamileth Sheikh is a 76 year old who presents for Patient presents with: Urgent Care Mouth Problem: sore in each corner of mouth. an established patient of [facility]. 2 weeks Developed sores on edges of lips Stinging treatment tried valtrex Finds self drooling some times Uses sensydyne for tooth paste Also baking sode with salt Objective BP 114/64 Pulse 71 Temp 98.8 ??F (37.1 ??C) (Temporal) Resp 15 Ht 1.689 m (5' 6.5) Wt 66.2 kg (146 lb) SpO2 97% BMI 23.21 kg/m?? Physical Exam Vitals reviewed. Constitutional: Appearance: Normal appearance. Skin: Comments: Lips - lateral edges with linear ulcers Neurological: Mental Status: She is alert. LIAISON documented in this encounter Plan of Treatment Upcoming Encounters Date Type Specialty Care Team Description 09/10/2022 Office Visit Internal Medicine Margot Branham MD [address] [place] [phone] (Wo rk) documented as of this encounter Visit Diagnoses Diagnosis Angular cheilitis - Primary Diseases of lips documented in this encounter Additional Health Concerns Assessment Noted Time PHQ-9 Depression Total Score: 0 11/22/2019 10:49 AM CS T documented as of this encounter Care Teams Circle Beveler Relationship Specialty Start Date End Date Margot Branham MD PCP - General Internal Medicine 10/28/[address] [place] [phone] Carlota Landeros MD MD Urology 04/10/[address] [place] [address] Michelle Montana, RN Registered Nurse Urology 05/07/17 Anh Costa APRN COUPON AND BOND COLLECTION CLERK Nurse Practitioner Nurse Practitioner 10/07 Martinez Galicia MD MD Ophthalmology 04/18/18 [address] [place] [address] Sabino Romano DPM MD Podiatry 08/11/[address] [place] [phone] Mehreen Johnston MD PhD MD Family Practice 11/15/[address] [place] [phone] Margot Branham MD MD Internal Medicine 04/17/[address] [place] [address] [phone] Margot Branham MD Assigned PCP 09/15/[address] [place] [phone] documented as of this encounter
--- OUTSIDE RECORDS SUMMARY | 2022-07-30 19:23 | XMS_ITS | Encounter Summary ---
:1945 Author Organization [place] Address [address] [facility] [place] [address] Care Team Providers Name Role Phone Carlota Landeros MD Unavailable Michelle Montana RN Unavailable Anh Costa PICKING MACHINE OPERATOR WATCH AND CLOCK MAKER AND REPAIRER Unavailable Unavailable Martinez Galicia MD Unavailable Sabino Romano DPJody Unavailable Kyle Roberts MD Primary Care Provider Mehreen Johnston MD PhD Unavailable [phone] Encounter Details Date Type Department Care Team Description 11/22/2019 Office Visit [facility] Kyle Roberts Disorder of bone and cartilage (Primary Dx); [facility] MD Brii Other specified disorders of bone densit y and structure, other site ; [place] [address] Atrophic vaginitis; [employer] [facility] reen for colon cancer; [place] [address] Seasonal allergies; 3RD FLR,[address] Chronic rhinitis; [address] (Work) Vaginal dryness; [facility] 88 Recurrent cold sores; [place], [place] [address] (Fax) Vitamin D deficiency [phone] Social History Tobacco Use Types Packs/Day Years Used Date Smoking Tobacco: Never Smokeless Tobacco: Never Alcohol Use Standard Drinks/Week Comments Yes 0 (1 standard drink = 0.6 oz pure alcoho l) wine few times/wk Sex Assigned at Date Recorded Female 12/20/2018 4:10 PM CDT documented as of this encounter Last Filed Vital Signs Vital Sign Reading Time Taken Comments Blood Pressure - - Pulse - - Temperature - - Respiratory Rate - - Oxygen Saturation - - Inhaled Oxygen Concentration - - Weight 67 kg (147 lb 12.8 oz) 11/22/2019 10:50 AM DISTRIBUTION OPERATIONS MANAGER Height - - Body Mass Index 23.86 08/17/2019 2:01 PM DISTRIBUTION OPERATIONS MANAGER documented in this encounter Progress Notes Kyle Roberts MD - 11/22/2019 11:00 AM CST HPI Former patient of Dr. Vang, to establish care 1. Osteopenia/Low bone density--sees [facility] for bone health. Initially saw Dr. Harris 08/2018 for low bone density, reviewed note. T score at that time -2 at radius and -1.9 at hip. Plan at that time was conservative treatment with weight bearting activity and vitamin D. Has not seen Dr. [facility] S=since, has upcoming appt. Needs repeat DEXA as they not do at [place]..Had been on HRT with estradiol patch, recalls started in her 40's continued through 2008. 2. Goes to [facility] for prevention CVD, followed Dr. Costa 3. Fhx colon ca, did genetic risk evaluation, no elevated risk. Patient Active Problem List Diagnosis Date Noted ??? Vitreous degeneration, right 07/24/2019 Priority: Medium ??? Hyperlipidemia Priority: Medium ASCVD risk 8.1%, declines statin ??? Elevated glucose Priority: Medium ??? ACP (advance care planning) 04/15/2015 Priority: Medium Advance Care Planning 04/21/2016: Receipt of ACP document: Received: Health Care Directive which waswitnessed or notarized on 12-23-15. Document previously scanned on 01-21-16. Validation form completedand sent to be scanned. Code Status needs to be updated to reflect choices in most recent ACP document Confirmed/documented designated decision maker(s). Added by Aleena Mcknight RN Advance Care Planning Liaison with Honorjose Manzanares Advance Care Planning 04/15/2015: Receipt of ACP document: Received: Health Care Directive which was witnessed or notarized on 12/11/10. Document previously scanned on 03/28/15. Validation form completed and sent to be scanned. Code Status needs to be updated to reflect choices in most recent ACP document. Confirmed/documented designated decision maker(s). Added by Abel Guillen ??? Disorder of bone and cartilage 01/08/2015 Priority: Medium Problem list name updated by automated process. Provider to review ??? Lump or mass in breast 12/06/2013 Priority: Medium ??? Hypertension 08/15/2012 Priority: Medium ??? Osteopenia 08/15/2012 Priority: Medium ??? Atrophic vaginitis 08/15/2012 Priority: Medium ??? Hemorrhoids 05/02/2012 Priority: Medium ??? Anal fissure 05/02/2012 Priority: Medium ??? Tinnitus of both ears 04/21/2012 Priority: Medium ??? Urinary retention 04/02/2011 Priority: Medium ??? Urinary urgency 04/02/2011 Priority: Medium ??? CARDIOVASCULAR SCREENING; LDL GOAL LESS THAN 130 08/03/2010 Priority: Medium Current Outpatient Medications Medication ??? cholecalciferol (VITAMIN D3) 1000 UNIT tablet ??? ciclopirox (LOPROX) 0.77 % cream ??? Coenzyme Q10 (COQ-10) 100 MG CAPS ??? estradiol (ESTRACE) 0.1 MG/GM vaginal cream ??? estradiol (ESTRING) 2 MG vaginal ring ??? hydrocortisone (ANUSOL-HC) 2.5 % cream ??? irbesartan (AVAPRO) 150 MG tablet ??? LYSINE PO ??? Probiotic Product (PROBIOTIC DAILY PO) ??? rosuvastatin (CRESTOR) 5 MG tablet ??? amoxicillin (AMOXIL) 500 MG capsule ??? OTHER MEDICAL SUPPLIES ??? valACYclovir (VALTREX) 1000 mg tablet No current facility-administered medications for this visit. ROS As noted above Physical Exam Blood pressure (P) 131/61, pulse (P) 65, weight 67 kg (147 lb 12.8 oz), not currently . alert NAD A/P 1. Low bone density Will order repeat DEXA, to follow up at [facility]. Had annual exam 08/[address] Vang, Follow-up in 6 months to review BP, lipids and vaginal concerns RIBUTION OPERATIONS MANAGER documented in this encounter Nursing Notes Demario Dudley, RESISTANCE BRAZER - 11/22/2019 11:00 AM CST No chief complaint on file. See PUMA Dudley 11/22/2019 RIBUTION OPERATIONS MANAGER documented in this encounter Plan of Treatment Upcoming Encounters Date Type Specialty Care Team Description 09/10/2022 Office Visit Internal Medicine Margot Branham MD [address] [address] (Wo rk) documented as of this encounter Results DX Hip/Pelvis/Spine (11/23/2019 9:39 AM DISTRIBUTION OPERATIONS MANAGER) Anatomical Region Laterality Modality Dexa Bone Mineral Density Specimen (Source) Anatomical Location Collection Method / Collectio n Time Received Time / Laterality Volume Narrative 11/27/2019 8:45 AM DISTRIBUTION OPERATIONS MANAGER [facility] [address] [place] [address] Phone: ?? Fax: Patient name: ?? Yamileth [place] Patient demographics: ??74 year old Whit e Female History: ??Evaluation of Bone Density, F amily History of Osteoporosis and Post Menopausal Current treatments: ??Estrogen, Vitamin D Scan: ?Colibriaar Prodigy Conclusions: The most negative and valid T-score of - 5.5 at the level of the left total hip corresponds with osteoporosis accord ing to WHO criteria for postmenopausal females and men age 50 an d over. The risk of osteoporotic fracture increases approximately 2-fold for each 1.0 SD decrease in T-score. Low bone density is not the only risk fa ctor for fracture; consider factors such as patient's age, fall risk , injury risk, previous osteoporotic fracture, family history of osteoporosis, etc. ??People with an elevated risk of fracture should be r egularly evaluated for low bone mineral density. ??For patients eligible for Medicare, routine testing is allowed once every 2 years. Testing freq uency can be increased for patients on corticosteroids. Clinical co rrelation is recommended. Comparison Exams: Taking into account the precision errors (ref #3 below) for this center: These calculated changes in BMD to the p revious exam are significantly decreased at the level of the lumbar spi ne, left total hip and right total hip. These calculated changes in BMD to the b aseline exam are significantly decreased at the level of the lumbar spi ne, left total hip, right total hip and wrist. Percent changes not mentioned or within remaining regions are either insignificant or invalid. Please note that the differential diagno sis of BMD increase in the spine includes improvement due to pharmacother apy vs inter-current progression of spine degeneration or fracture. Please refer to BMD values in PACS. Bone densitometry cannot rule out second kitty causes of bone loss. Therefore, further metabolic testing to look for secondary causes of low BMD should be performed if indicated. Cl inical correlation is recommended Clinical correlation is strongly recomme nded. Feel free to contact DXA services if you have any questions or comments. ?? Thank you for the opportunity to be of s clifford to you and your patient. Principal result county director: Dariela Payne MD, , CCD Division of Endocrinology and Diabetes ? ? Department of Medicine Technical comments: Satisfactory. Abnormal vertebrae may be excluded from analysis if there is more than a 1.0 T-score difference between the verte brae in question and adjacent vertebrae. Note the wide range in BMD va lues and T-scores within the lumbar spine. In the circumstances, the lumbar spine is represented by L1-L3 References: Ref. 1. WHO categories: ? T-score > -1.0 ??= normal ? . ? T-score -1.0 to -2.5 = low bone density T-score < -2.5 = osteoporosis ?. Ref. 2. 2015 ISCD official position stat ements: ??www.iscd.org. Ref. 3. ??(LSC = least significant mata e) AP spine = ??0.032 g/cm2 ??(03.29.2007) Left hip = 0.029 g/cm2 ??(03.18.2007) Right hip = 0.018 g/cm2 ??(03.18.2007) Left mid radius = 0.043 g/cm2 ??(6.26.20 07) Lateral spine region = pending Total body = pending According to the ISCD position statement s, total hip rather than femoral neck regions are to be compared because larger areas give better precision. Ref. 4. ??By definition, osteoporosis ma y be diagnosed in the presence or with the history of a low trauma or frag ility fracture. ??Fragility and low trauma fracture is defined as a fracture resulting from the force of a fall from a standing height or less or a bone that breaks under conditions that would not cause a normal bone to br eak. ?? Ref. 5. NOF Physician's Guideline Websit e address: ??www.no.org. 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 Vitamin D deficiency Unspecified vitamin D deficiency Other specified disorders of bone densit y and structure, other site Disorder of bone and cartilage Disorder of bone and cartilage, unspecif ied documented in this encounter Additional Health Concerns Assessment Noted Time PHQ-9 Depression Total Score: 0 11/22/2019 10:49 AM CS T documented as of this encounter Care Teams Cub Reporter Relationship Specialty Start Date End Date Kyle Roberts MD PCP - General Family Practice 11/15/19 10/27/[address] [place], [place] [address] Carlota Landeros MD MD Urology 04/10/[address] [place] [address] Michelle Montana, MODESTA Registered Nurse Urology 05/07/17 Anh Costa APRN WATCH AND CLOCK MAKER AND REPAIRER Nurse Practitioner Nurse Practitioner 10/07 Martinez Galicia MD MD Ophthalmology 04/18/18 [address] [place] [address] Sabino Romano DPM MD Podiatry 08/11/[address] [phone] Mehreen Johnston MD PhD Family Practice 11/15/[address] [place] [id number] documented as of this encounter
--- OUTSIDE RECORDS SUMMARY | 2022-07-30 19:23 | XMS_ITS | Encounter Summary ---
:1945 Author Organization [place] Address [address] [place] [address]. [place] [address] Care Team Providers Name Role Phone Lisseth Vang MD Primary Care Provider Carlota Landeros MD Unavailable Lisseth Vang MD Unavailable Michelle Montana RN Unavailable Anh Costa APRN NEGOTIATIONS DIRECTOR Unavailable Unavailable Martinez Galicia MD Unavailable Sabino Romano DPM Unavailable Encounter Details Date Type Department Care Team Description 11/14/2019 Travel Social History Tobacco Use Types Packs/Day [...] Office Visit Internal Medicine Margot Branham MD [address] [place] [address] (Wo rk) documented as of this encounter Visit Diagnoses Not on filedocumented in this encounter Additional Health Concerns Assessment Noted Time PHQ-9 Depression Total Score: 0 08/17/2019 2:03 PM DENTAL MECHANIC documented as of this encounter Care Teams Linseed Oil Order Filler Relationship Specialty Start Date End Date Lisseth Vang MD PCP - General 04/13/16 11/14/[address] [place] [address] Carlota Landeros MD MD Urology 04/10/[address] [place], [place] [phone] Lisseth Vang MD PCP Family Practice 03/30/16 11/14/[address] [place] [address] Michelle Montana, MODESTA Registered Nurse Urology 05/07/17 Anh Costa APRN NEGOTIATIONS DIRECTOR Nurse Practitioner Nurse Practitioner 10/07 Martinez Galicia MD MD Ophthalmology 04/18/18 [address] [place] [address] Sabino Romano DPM MD Podiatry 08/11/[address] [address] documented as of this encounter
--- OUTSIDE RECORDS SUMMARY | 2022-07-30 19:23 | XMS_ITS | Encounter Summary ---
:1945 Author Organization [place] Address [address] [place] [address]. [place] [address] Care Team Providers Name Role Phone Carlota Landeros MD Unavailable Michelle Montana RN Unavailable Anh Costa APRN MANAGER STATISTICS Unavailable Unavailable Martinez Galicia MD Unavailable Sabino Romano DPM Unavailable Kyle Roberts MD Primary Care Provider Mehreen Johnston MD PhD Unavailable [phone] Encounter Details Date Type Department Care Team Description 12/12/2019 Psychiatric Only [facility] Anh Costa hypertension Cardiovascular Disease CLAUDIA Marsh MANAGER STATISTICS Prevention [address] [place] [phone] Social History Tobacco Use Types Packs/Day [...] Office Visit Internal Medicine Margot Branham MD [address] [place] [address] (Wo rk) documented as of this encounter Visit Diagnoses Diagnosis Essential hypertension Unspecified essential hypertension documented in this encounter Additional Health Concerns Assessment Noted Time PHQ-9 Depression Total Score: 0 11/22/2019 10:49 AM CS T documented as of this encounter Care Teams Assistant Professor Of Psychology Relationship Specialty Start Date End Date Kyle Roberts MD PCP - General Family Practice 11/15/19 10/27/[address] [place], [place] [address] Carlota Landeros MD MD Urology 04/10/[address] [place], [place] [address] Michelle Montana, RN Registered Nurse Urology 05/07/17 Anh Costa APRN MANAGER STATISTICS Nurse Practitioner Nurse Practitioner 10/07 Martinez Galicia MD MD Ophthalmology 04/18/18 [address] [place], [place] [phone] Sabino Romano DPM MD Podiatry 08/11/[address] [address] Mehreen Johnston MD PhD MD Family Practice 11/15/19 [address]09 [place], [place] [phone] documented as of this encounter
--- OUTSIDE RECORDS SUMMARY | 2022-07-30 19:23 | XMS_ITS | Encounter Summary ---
:1945 Author Organization [place] Address [address] [place] [address]. [place] [address] Care Team Providers Name Role Phone Carlota Landeros MD Unavailable Michelle Montana RN Unavailable Anh Costa SPEECH CORRECTION CONSULTANT TELEPHONIC CASE MANAGER Unavailable Unavailable Martinez Galicia MD Unavailable Sabino Romano DPM Unavailable Kyle Roberts MD Primary Care Provider Mehreen Johnston MD PhD Unavailable [phone] Margot Branham MD Unavailable Reason for Visit Reason Onset Date Comments Refill Request 07/04/2020 rosuvastatin Encounter Details Date Type Department Care Team Description 07/04/[address] [facility] Women's Nurse, [facility] Refill Request Clinic [place] (rosuvastatin) [address] [facility] [address] [place] [address] Social History Tobacco Use Types Packs/Day Years Used Date Smoking Tobacco: Never Smokeless Tobacco: Never Alcohol Use Standard Drinks/Week Comments Yes 0 (1 standard drink = 0.6 oz pure alcoho l) wine few times/wk Sex Assigned at Date Recorded Female 12/20/2018 4:10 PM CDT documented as of this encounter Miscellaneous Notes Telephone Encounter - Cara Haji RN - 07/04/2020 11:51 AM CDT Received refill request for Rosuvastatin. Last in clinic 11/[address] Roberts. This medication was ordered 06/[address] Villanueva at [facility] in [place]. Sent My Chart message to patient asking if she is still seeing that physician, or is wanting Dr Roberts to take over prescribing. documented in this encounter Plan of Treatment Upcoming Encounters Date Type Specialty Care Team Description 09/10/2022 Office Visit Internal Medicine Margot Branham MD [address] [phone] (Wo rk) documented as of this encounter Visit Diagnoses Not on filedocumented in this encounter Additional Health Concerns Assessment Noted Time PHQ-9 Depression Total Score: 0 11/22/2019 10:49 AM CS T documented as of this encounter Care Teams Quad Stayer Relationship Specialty Start Date End Date Kyle Roberts MD PCP - General Family Practice 11/15/19 10/27/[address] [place] [address] Carlota Landeros MD MD Urology 04/10/[address] [place], [place] [address] Michelle Montana, MODESTA Registered Nurse Urology 05/07/17 Anh Costa APRN TELEPHONIC CASE MANAGER Nurse Practitioner Nurse Practitioner 10/07 Martinez Galicia MD MD Ophthalmology 04/18/18 420 [place] [address] Sabino Romano DPM MD Podiatry 08/11/[address] [phone] Mehreen Johnston MD PhD MD Family Practice 11/15/19 909 [place] [address] Margot Branham MD MD Internal Medicine 04/17/[address] [address] documented as of this encounter
--- OUTSIDE RECORDS SUMMARY | 2022-07-30 19:23 | XMS_ITS | Encounter Summary ---
:1945 Author Organization [place] Address [address] [place] [address]. [place] [address] Care Team Providers Name Role Phone Lisseth Vang MD Primary Care Provider Carlota Landeros MD Unavailable Lisseth Vang MD Unavailable Michelle Montana RN Unavailable Anh Costa APRN LICENSED OPTICAL DISPENSER Unavailable Unavailable Martinez Galicia MD Unavailable Sabino Romano DPM Unavailable Reason for Visit Diagnostic Imaging Ultrasound (Routine) - Closed Specialty Diagnoses / Procedures Referred By Contact Refer red To Contact Diagnoses Other abnormal and inconclusive findings on diagnostic imaging of breast Left breast lump Lisseth Vang MD Procedures US Breast Left Limited 1-[address] [place], [place] [address] Referral ID Status Reason Start Date Expiration Date Visits Requ ested Visits Authorized [id number] Closed 08/17/2019 08/16/2020 1 1 Encounter Details Date Type Department Care Team Description 09/05/2019 Ancillary Procedure [facility], Other abnormal and inconclusive findings on diagnostic imaging of breast ; [facility] MD Lisseth Left breast lump 909 [facility] [address] [facility], [address] [place] [id number] Social History Tobacco Use Types Packs/Day Years [...] 09/10/2022 Office Visit Internal Medicine LogeaisMargot MD [address] [address] (Wo rk) documented as of this encounter Procedures Procedure Name Priority Date/Time Associated Diagnosis Comme nts US BREAST LEFT Routine 09/05/2019 3:16 PM Other abnormal and R esults for this LIMITED 1-3 AIR BRAKES INSPECTOR inconclusive findings proced ure are in QUADRANTS on diagnostic imaging the re sults of breast section. Left breast lump documented in this encounter Results US Breast Left Limited 1-3 Quadrants (09/05/2019 3:16 PM AIR BRAKES INSPECTOR) Anatomical Region Laterality Modality Breast Left Ultrasound Specimen (Source) Anatomical Location Collection Method / Collectio n Time Received Time / Laterality Volume Impressions 09/05/2019 3:33 PM AIR BRAKES INSPECTOR IMPRESSION: BI-RADS CATEGORY: 1 - ??NEGATIVE. RECOMMENDED FOLLOW-UP: Annual Mammograph y. Clinical follow-up physician palpated ar ea of concern. ??Given lack of imaging findings in the left ??breast, m anagement would need to be based on clinical grounds. The patient was given the results of the examination. TYE MARTINEZ MD Narrative 09/05/2019 3:33 PM AIR BRAKES INSPECTOR Examination: Bilateral digital diagnostic mammography and digital breast tomosynthesis with computer aided detection, and focused left breast ultrasound. Comparison: 04/13/2018, 12/31/2014, 014, 12/10/2011 History/Family history: Physician palpat ed left breast area of concern. Close blood relative with ovari an cancer. Previous bilateral breast reduction surgery. Technique: ??Tomosynthesis BREAST DENSITY: Scattered fibroglandular densities Findings: No suspicious mammographic finding or si gnificant change in either breast. Targeted left breast ultrasound by radio logist and technologist in area of concern 1 to 2:00 position 1 to 3 cm from nipple demonstrates normal breast tissue without suspicious finding. Lisseth Vang MD IMG US ORDERABLES MA Diagnostic Bilateral w/[place] (09/05/2019 3:16 PM AIR BRAKES INSPECTOR) Anatomical Region Laterality Modality Breast Bilateral Mammography Specimen (Source) Anatomical Location Collection Method / Collectio n Time Received Time / Laterality Volume Impressions 09/05/2019 3:33 PM AIR BRAKES INSPECTOR IMPRESSION: BI-RADS CATEGORY: 1 - ??NEGATIVE. RECOMMENDED FOLLOW-UP: Annual Mammograph y. Clinical follow-up physician palpated ar ea of concern. ??Given lack of imaging findings in the left ??breast, m anagement would need to be based on clinical grounds. The patient was given the results of the examination. TYE MARTINEZ MD Narrative 09/05/2019 3:33 PM AIR BRAKES INSPECTOR Examination: Bilateral digital diagnostic mammography and digital breast tomosynthesis with computer aided detection, and focused left breast ultrasound. Comparison: 04/13/2018, 12/31/2014, 014, 12/10/2011 History/Family history: Physician palpat ed left breast area of concern. Close blood relative with ovari an cancer. Previous bilateral breast reduction surgery. Technique: ??Tomosynthesis BREAST DENSITY: Scattered fibroglandular densities Findings: No suspicious mammographic finding or si gnificant change in either breast. Targeted left breast ultrasound by radio logist and technologist in area of concern 1 to 2:00 position 1 to 3 cm from nipple demonstrates normal breast tissue without suspicious finding. Lisseth Vang MD IMG MAMMOGRAPHY ORDERABLES documented in this encounter Visit Diagnoses Diagnosis Left breast lump Lump or mass in breast Other abnormal and inconclusive findings on diagnostic imaging of breast Left breast lump Lump or mass in breast documented in this encounter Additional Health Concerns Assessment Noted Time PHQ-9 Depression Total Score: 0 08/17/2019 2:03 PM AIR BRAKES INSPECTOR documented as of this encounter Care Teams Employee Relations Advisor Relationship Specialty Start Date End Date Lisseth Vang MD PCP - General 04/13/16 11/14/[address] [place] [address] Carlota Landeros MD MD Urology 04/10/[address] [place], [place] [address] Lisseth Vang MD PCP Family Practice 03/30/16 11/14/19 [address] [facility] [address] [address] Michelle Montana, RN Registered Nurse Urology 05/07/17 Anh Costa APRN LICENSED OPTICAL DISPENSER Nurse Practitioner Nurse Practitioner 10/07 Martinez Galicia MD MD Ophthalmology 04/18/18 420 [place] [address] Sabino Romano DPM MD Podiatry 08/11/[address] [address] documented as of this encounter
--- OUTSIDE RECORDS SUMMARY | 2022-07-30 19:23 | XMS_ITS | Encounter Summary ---
:1945 Author Organization [place] Address [address] [place] [address]. [place] [address] Care Team Providers Name Role Phone Carlota Landeros MD Unavailable Michelle Montana RN Unavailable Anh Costa MANAGER ACTIVITIES COVERING MACHINE TENDER Unavailable Unavailable Martinez Galicia MD Unavailable Sabino Romano DPM Unavailable Kyle Roberts MD Primary Care Provider Mehreen Johnston MD PhD Unavailable [phone] Margot Branham MD Unavailable Reason for Visit Reason Onset Date Comments Schedule Surgery 12/11/2019 Encounter Details Date Type Department Care Team Description 12/11/2019 Telephone [facility] Levy Simmons MD Schedule Surgery [address] [place] [address] [place] [address] [phone] Social History Tobacco Use Types Packs/Day Years Used Date Smoking Tobacco: Never Smokeless Tobacco: Never Alcohol Use Standard Drinks/Week Comments Yes 0 (1 standard drink = 0.6 oz pure alcoho l) wine few times/wk Sex Assigned at Date Recorded Female 12/20/2018 4:10 PM CDT COVID-19 Exposure Response Date Recorded In the last month, have you been in contact Unable to assess 04/17/2020 3:08 PM CDT with someone who was confirmed or suspected to have Coronavirus / COVID-19? documented as of this encounter Miscellaneous Notes Telephone Encounter - Anneliese Romo - 04/22/2020 10:05 AM CDT Patient called to cancel procedure with Dr. Hussein. Surgery and PO visits were cancelled. Telephone Encounter - Anneliese Romo - 12/11/2019 12:39 PM CDT Met with patient to schedule surgery with Dr. Levy Hussein. Surgery was scheduled on 05/15 at [facility] Patient will have H&P at [facility], Kyle Roberts Post-Op care appointment was scheduled on 05/27 Patient is aware a test driver/assistant manager is needed day of surgery. Patient received surgery packet has my direct contact information for any further questions. Patient informed Jayda will contact her with a cosmetic quote documented in this encounter Plan of Treatment Upcoming Encounters Date Type Specialty Care Team Description 09/10/2022 Office Visit Internal Medicine LogeaMargot man MD [address] [id number] (Wo rk) documented as of this encounter Visit Diagnoses Not on filedocumented in this encounter Additional Health Concerns Assessment Noted Time PHQ-9 Depression Total Score: 0 11/22/2019 10:49 AM CS T documented as of this encounter Care Teams Baggage Security Checker Relationship Specialty Start Date End Date Kyle Roberts MD PCP - General Family Practice 11/15/19 10/27/[address] [place], [place] [address] Carlota Landeros MD MD Urology 04/10/[address] [place] [address] Michelle Montana, MODESTA Registered Nurse Urology 05/07/17 Anh Costa APRN COVERING MACHINE TENDER Nurse Practitioner Nurse Practitioner 10/07 Martinez Galicia MD MD Ophthalmology 04/18/18 [address] [place], [place] [address] Sabino Romano DPM MD Podiatry 08/11/18 [facility] [address] [address] Mehreen Johnston MD PhD MD Family Practice 11/15/[address] [place] [address] Margot Branham MD MD Internal Medicine 04/17/[address] [place] [address] documented as of this encounter
--- OUTSIDE RECORDS SUMMARY | 2022-07-30 19:23 | XMS_ITS | Encounter Summary ---
:1945 Author Organization [place] Address [address] [place] [address]. [place] [address] Care Team Providers Name Role Phone Carlota Landeros MD Unavailable Michelle Montana RN Unavailable Ahn Costa APPRAISAL SPECIALIST APPLICATION COUNSELOR Unavailable Unavailable Martinez Galicia MD Unavailable Sabino Romano DPM Unavailable Kyle Roberts MD Primary Care Provider Mehreen Johnston MD PhD Unavailable [phone] Reason for Visit Diagnostic Imaging Dexa (Routine) - Closed Specialty Diagnoses / Procedures Referred By Contact Refer red To Contact Diagnoses Other specified disorders of bone density and structure, other site Disorder of bone and cartilage Kyle Roberts MD Procedures DX Wrist Heel Radius [address] [place], [place] [address] Referral ID Status Reason Start Date Expiration Date Visits Requ ested Visits Authorized [id number] Closed 11/23/2019 11/22/2020 1 1 Encounter Details Date Type Department Care Team Description 11/23/2019 Ancillary Procedure [facility] Kyle Roberts Ot her specified disorders of bone density and structure, other site ; Center Dexa MD Brii Disorder of bone and cartilage; 9 [facility] [address] Other specified disorders of bone densit y and structure, other site 1st Floor [place], [place] [phone] Social History Tobacco Use Types Packs/Day [...] Visit Internal Medicine Margot Branham MD 909 [facility] [place], [place] [address] (Wo rk) documented as of this encounter Procedures Procedure Name Priority Date/Time Associated Diagnosis Comme nts DX Routine 11/23/2019 9:40 AM Other specified Result s for this WRIST/HEEL/RADIUS OXYGEN THERAPIST disorders of bone proce dure are in density and the results structure, other section. site Disorder of bone and cartilage documented in this encounter Results DX Wrist Heel Radius (11/23/2019 9:40 AM OXYGEN THERAPIST) Anatomical Region Laterality Modality Dexa Bone Mineral Density Specimen (Source) Anatomical Location Collection Method / Collectio n Time Received Time / Laterality Volume Narrative 11/27/2019 9:23 AM OXYGEN THERAPIST Results are reported under DXA scan report for the hip/spine performed on the same day. Principal result supervisor communications and signals: Dariela Payne MD, CCD Division of Diabetes, Endocrinology and Metabolism [facility] [phone] Kyle Roberts MD IMG DEXA ORDERABLES documented in this encounter Visit Diagnoses Diagnosis Other specified disorders of bone densit y and structure, other site Disorder of bone and cartilage Disorder of bone and cartilage, unspecif ied documented in this encounter Additional Health Concerns Assessment Noted Time PHQ-9 Depression Total Score: 0 11/22/2019 10:49 AM CS T documented as of this encounter Care Teams High Lift Mule Operator Relationship Specialty Start Date End Date Kyle Roberts MD PCP - General Family Practice 11/15/19 10/27/[address] [place] [address] Carlota Landeros MD MD Urology 04/10/[address] [place], [place] [address] Michelle Montana, RN Registered Nurse Urology 05/07/17 Anh Costa, APPRAISAL SPECIALIST APPLICATION COUNSELOR Nurse Practitioner Nurse Practitioner 10/07 Martinez Galicia MD MD Ophthalmology 04/18/18 420 [place] [address] Sabino Romano DPM MD Podiatry 08/11/[address] [address] Mehreen Johnston MD PhD MD Family Practice 11/15/[address] [place] [address] documented as of this encounter
--- OUTSIDE RECORDS SUMMARY | 2022-07-30 19:23 | XMS_ITS | Encounter Summary ---
:1945 Author Organization [place] Address [address] [place] [address]. [place] [address] Care Team Providers Name Role Phone Carlota Landeros MD Unavailable Michelle Montana RN Unavailable Anh Costa ENTOMOLOGY TEACHER JEWELRY ENGRAVER Unavailable Unavailable Martinez Galicia MD Unavailable Sabino Romano DPM Unavailable Kyle Roberts MD Primary Care Provider Mehreen Johnston MD PhD Unavailable [phone] Encounter Details Date Type Department Care Team Description 11/23/2019 PRE VISIT [facility] Duncan Mak MD - [place] [address] [place] [address] [place] [address] [facility] [address]A [place], [place] [phone] Social History Tobacco Use Types Packs/Day Years Used Date Smoking Tobacco: Never Smokeless Tobacco: Never Alcohol Use Standard Drinks/Week Comments Yes 0 (1 standard drink = 0.6 oz pure alcoho l) wine few times/wk Sex Assigned at Date Recorded Female 12/20/2018 4:10 PM CDT documented as of this encounter Miscellaneous Notes Telephone Encounter - Lesley Gonzalez - 11/14/2019 2:18 PM CST FUTURE VISIT INFORMATION FUTURE VISIT INFORMATION: ?? Date: 11/23/19 ?? Time: 8:00am ?? Location: [facility] REFERRAL INFORMATION: ?? Referring provider: Martinez Galicia ?? Referring providers [facility] RECORDS REQUESTED FROM: Clinic name Comments Records Status Imaging Status [facility] OV/referral 11/14/19-Galicia LYDIA D COUNTER ATTENDANT documented in this encounter Plan of Treatment Upcoming Encounters Date Type Specialty Care Team Description 09/10/2022 Office Visit Internal Medicine Margot Branham MD [address] [address] (Wo rk) documented as of this encounter Visit Diagnoses Not on filedocumented in this encounter Additional Health Concerns Assessment Noted Time PHQ-9 Depression Total Score: 0 11/22/2019 10:49 AM CS T documented as of this encounter Care Teams Information Analyst Relationship Specialty Start Date End Date Kyle Roberts MD PCP - General Family Practice 11/15/19 10/27/[address] [place] [address] Carlota Landeros MD MD Urology 04/10/[address] [place], [place] [address] Michelle Montana, MODESTA Registered Nurse Urology 05/07/17 Anh Costa APRN JEWELRY ENGRAVER Nurse Practitioner Nurse Practitioner 10/07 Martinez Galicia MD MD Ophthalmology 04/18/18 [address] [place] [address] Sabino Romano DPM MD Podiatry 08/11/[address] [phone] Mehreen Johnston MD PhD MD Family Practice 11/15/[address] [place] [address] documented as of this encounter
--- OUTSIDE RECORDS SUMMARY | 2022-07-30 19:23 | XMS_ITS | Encounter Summary ---
:1945 Author Organization [place] Address [address] [place] [address]. [address] Care Team Providers Name Role Phone Carlota Landeros MD Unavailable Michelle Montana RN Unavailable Anh Costa FINAL ASSEMBLY AND PACKING SUPERVISOR COILER OPERATOR Unavailable Unavailable Martinez Galicia MD Unavailable Sabino Romano DPM Unavailable Kyle Roberts MD Primary Care Provider Mehreen Johnston MD PhD Unavailable [phone] LogMargot sadler MD Unavailable Martinez Galicia MD Unavailable LogMargot sadler MD Unavailable Margot Branham MD Primary Care Provider Levy Hussein MD Unavailable Alonso Tejeda MD Unavailable Reason for Visit Reason Onset Date Comments Refill Request 07/01/2020 Encounter Details Date Type Department Care Team Description 07/01/2020 [facility] Refill [facility] Damian Villanueva MD Refill Request Clinic [address] [place] [address] (Wo rk) [address] [phone] Social History Tobacco Use Types Packs/Day Years [...] Office Visit Internal Medicine Margot Branham MD [address] [place] [phone] (Wo rk) documented as of this encounter Visit Diagnoses Diagnosis Hyperlipidemia LDL goal <100 Other and unspecified hyperlipidemia documented in this encounter Additional Health Concerns Assessment Noted Time PHQ-9 Depression Total Score: 0 11/22/2019 10:49 AM CS T documented as of this encounter Care Teams Facilities Maintenance Worker Relationship Specialty Start Date End Date Kyle Roberts MD PCP - General Family Practice 11/15/19 10/27/[address] [place], [place] [address] Margot Branham MD PCP - General Internal Medicine 10/28/[address] [place] [address] Carlota Landeros MD MD Urology 04/10/[address] [place], [place] [address] Michelle Montana, MODESTA Registered Nurse Urology 05/07/17 Anh Costa APRN Nurse Practitioner Nurse Practitioner 10/07/17 Martinez Hernandez MD Ophthalmology 04/18/[address] [place] [address] Sabino Romano DPM MD Podiatry 08/11/18 [facility] [address] [phone] Mehreen Johnston MD Family Practice 11/15/19 MD PhD [address] [place] [address] Margot Branham MD MD Internal Medicine 04/17/[address] [place] [address] Martinez Galicia, Assigned Surgical 07/26/20 MD Provider [address] [place] [phone] Margot Branham MD Assigned PCP 09/15/[address] [place] [address] Levy Hussein MD Assigned Surgical 03/23/21 06/14/[address] [place] [address] Provider [place], [place] [address] Alonso Tejeda MD MD Internal Medicine 06/19/[address] [place] [address] documented as of this encounter
--- OUTSIDE RECORDS SUMMARY | 2022-07-30 19:23 | XMS_ITS | Encounter Summary ---
:1945 Author Organization [place] Address [address] [place] [address]. [place] [address] Care Team Providers Name Role Phone Carlota Landeros MD Unavailable Michelle Montana RN Unavailable Anh Costa ANIMAL HUSBANDMAN MEAT PULLER Unavailable Unavailable Martinez Galicia MD Unavailable Sabino Romano DPM Unavailable Kyle Roberts MD Primary Care Provider Mehreen Johnston MD PhD Unavailable [phone] Encounter Details Date Type Department Care Team Description 11/23/2019 Ancillary Procedure [facility] Kyle Roberts Ot her specified disorders of bone density and structure, other site ; [place] Nicole Teresa MD Disorder of bone and cartilage; [address] [place] [address] Other specified disorders of bone densit y and structure, other site 1st [address] [place], [place] [address] Social History Tobacco Use Types Packs/Day [...] Office Visit Internal Medicine Margot Branham MD [address] [place] [address] (Wo rk) documented as of this encounter Procedures Procedure Name Priority Date/Time Associated Diagnosis Comme nts DX HIP/PELVIS/SPINE Routine 11/23/2019 9:39 AM Other specified Results for this PAINT AND TABLE EDGER disorders of bone procedure are in density and the results structure, other section. site Disorder of bone and cartilage documented in this encounter Results DX Hip/Pelvis/Spine (11/23/2019 9:39 AM PAINT AND TABLE EDGER) Anatomical Region Laterality Modality Dexa Bone Mineral Density Specimen (Source) Anatomical Location Collection Method / Collectio n Time Received Time / Laterality Volume Narrative 11/27/2019 8:45 AM PAINT AND TABLE EDGER [facility] [address] [place] [address] Phone: ?? Fax: Patient name: ?? Yamilethnoris [place] Patient demographics: ??74 year old Whit e Female History: ??Evaluation of Bone Density, F amily History of Osteoporosis and Post Menopausal Current treatments: ??Estrogen, Vitamin D Scan: ?LendstarigMobile System 7 Conclusions: The most negative and valid T-score [...] to you and your patient. Principal result parts interpreter: Dariela Payne MD, , [facility] Division of Endocrinology and Diabetes ? ? [...] ??(03.18.2007) Left mid radius = 0.043 g/cm2 ??(03.29.20) Lateral spine region = pending Total body [...] 5. NOF Physician's Guideline Websit e address: ??[email or web address]. Kyle Roberts MD IMG DEXA ORDERABLES documented [...] as of this encounter Care Teams End Trimmer Relationship Specialty Start Date End Date Kyle Roberts MD PCP - General Family Practice 11/15/19 10/27/[address] [place], [place] [address] Carlota Landeros MD MD Urology 04/10/[address] [place], [place] [address] Michelle Montana, MODESTA Registered Nurse Urology 05/07/17 Anh Costa APRN MEAT PULLER Nurse Practitioner Nurse Practitioner 10/07 Martinez Galicia MD MD Ophthalmology 04/18/18 420 [place], [place] [address] Sabino Romano DPM MD Podiatry 08/11/[address] [phone] Mehreen Johnston MD PhD MD Family Practice 11/15/19 909 [place], [place] [phone] documented as of this encounter
--- OUTSIDE RECORDS SUMMARY | 2022-07-30 19:23 | XMS_ITS | Encounter Summary ---
:1945 Author Organization [place] Address [address] [place] [address]. [place] [address] Care Team Providers Name Role Phone Lisseth Vang MD Primary Care Provider Carlota Landeros MD Unavailable Lisseth Vang MD Unavailable Michelle Montana RN Unavailable Anh Costa APRN SEWER BRICKLAYER Unavailable Unavailable Martinez Galicia MD Unavailable Sabino Romano DPM Unavailable Reason for Visit Reason Comments Medication Refill Encounter Details Date Type Department Care Team Description 11/06/2019 Refill [facility] Yasmine Vang, Medication Refill Clinic [facility] PROFESSION AL BLDG [address] [place], [place] [address] [address] [facility] 88 [place], [place] [address] [phone] Social History Tobacco Use Types Packs/Day Years Used Date Smoking Tobacco: Never Smokeless Tobacco: Never Alcohol Use Standard Drinks/Week Comments Yes 0 (1 standard drink = 0.6 oz pure alcoho l) wine few times/wk Sex Assigned at Date Recorded Female 12/20/2018 4:10 PM CDT documented as of this encounter Miscellaneous Notes Telephone Encounter - Nicki Gracia RN - 11/07/2019 12:22 PM CST Received refill request for Estring. Patient saw Dr. Vang for annual 08/2019 and was advised tocontinue. Rx sent under ECONOMIC RESEARCH ANALYST Jena Schwarz. ER SALES MANAGER documented in this encounter Plan of Treatment Upcoming Encounters Date Type Specialty Care Team Description 09/10/2022 Office Visit Internal Medicine Margot Branham MD [address] [place] [address] (Wo rk) documented as of this encounter Visit Diagnoses Diagnosis Vaginal dryness Other specified symptom associated with female genital organs Atrophic vaginitis Postmenopausal atrophic vaginitis documented in this encounter Additional Health Concerns Assessment Noted Time PHQ-9 Depression Total Score: 0 08/17/2019 2:03 PM DEALER SALES MANAGER documented as of this encounter Care Teams Camper Assembler Relationship Specialty Start Date End Date Lisseth Vang MD PCP - General 04/13/16 11/14/[address] [place], [place] [address] Carlota Landeros MD MD Urology 04/10/[address] [place], [place] [phone] Lisseth Vang MD PCP Family Practice 03/30/16 11/14/[address] [place], [place] [phone] Michelle Montana, MODESTA Registered Nurse Urology 05/07/17 Anh Costa APRN SEWER BRICKLAYER Nurse Practitioner Nurse Practitioner 10/07 Martinez Galicia MD MD Ophthalmology 04/18/18 [address] [place], [place] [phone] Sabino Romano DPM MD Podiatry 08/11/[address] [place] [phone] documented as of this encounter
--- OUTSIDE RECORDS SUMMARY | 2022-07-30 19:23 | XMS_ITS | Encounter Summary ---
:1945 Author Organization [place] Address [address] [place] [address]. [place] [address] Care Team Providers Name Role Phone Lisseth Vang MD Primary Care Provider Carlota Landeros MD Unavailable Lisseth Vang MD Unavailable Michelle Montana RN Unavailable Anh Costa APRN DIVISION SUPERINTENDENT Unavailable Unavailable Martinez Galicia MD Unavailable Sabino Romano DPM Unavailable Encounter Details Date Type Department Care Team Description 10/11/[address] [facility] Martinez Guzman MD [address] [place] [address] 516 [facility] [address] [phone] Social History Tobacco Use Types [...] Office Visit Internal Medicine LogeaisMargot MD [address] [address] (Wo rk) documented as of this encounter Visit Diagnoses Not on filedocumented in this encounter Additional Health Concerns Assessment Noted Time PHQ-9 Depression Total Score: 0 08/17/2019 2:03 PM UNIT AIDE documented as of this encounter Care Teams Outpatient Physical Therapist Relationship Specialty Start Date End Date Lisseth Vang MD PCP - General 04/13/16 11/14/[address] [place], [place] [address] Carlota Landeros MD MD Urology 04/10/[address] [place], [place] [address] Lisseth Vang MD PCP Family Practice 03/30/16 11/14/[address] [place], [place] [address] Michelle Montana, MODESTA Registered Nurse Urology 05/07/17 Anh Costa APRN DIVISION SUPERINTENDENT Nurse Practitioner Nurse Practitioner 10/07 Martinez Galicia MD MD Ophthalmology 04/18/[address] [place] [address] Sabino Romano DPM MD Podiatry 08/11/[address] [place] [phone] documented as of this encounter
--- OUTSIDE RECORDS SUMMARY | 2022-07-30 19:23 | XMS_ITS | Encounter Summary ---
:1945 Author Organization [place] Address [address] [place] [address]. [place] [address] Care Team Providers Name Role Phone Lisseth Vang MD Primary Care Provider Carlota Landeros MD Unavailable Lisseth Vang MD Unavailable Michelle Montana RN Unavailable Anh Costa APRN INTERPRETER FOR THE DEAF Unavailable Unavailable Martinez Galicia MD Unavailable Sabino Romano DPM Unavailable Reason for Visit Reason Comments Follow Up Encounter Details Date Type Department Care Team Description 09/20/2019 Office Visit [facility] Martinez Galicia Vitre ous degeneration, right - Right Eye (Primary Dx); Clinic - Latoya Pearson MD Vitreous floater, right; Nakul Linderteen [address] Vitreous strand, right; [place], [place] Vitreous degeneration, right [facility] [address] [address] [phone] [place], [place] (Work) [address] [phone] Social History Tobacco Use Types Packs/Day Years Used Date Smoking Tobacco: Never Smokeless Tobacco: Never Alcohol Use Standard Drinks/Week Comments Yes 0 (1 standard drink = 0.6 oz pure alcoho l) wine few times/wk Sex Assigned at Date Recorded Female 12/20/2018 4:10 PM CDT documented as of this encounter Progress Notes Martinez Galicia MD - 09/20/2019 1:15 PM CST Chief Complaint(s) and History of Present Illness(es) Follow Up Comments Vitreous degeneration, right - Right Eye. Ramona is here for a YAG procedure RE. She says RE seems the same as last visit. Pb Sebastien COT 12:24 PM September 20, 2019 Review of systems for the eyes was negative other than the pertinent positives/negatives listed in the HPI. Assessment & Plan Yamileth Ramona Sheikh is a 74 year old female with the following diagnoses: 1. Vitreous degeneration, right - Right Eye 2. Vitreous floater, right Here for YAG vitreolysis, right eye Remains symptomatic from stable floaters [facility] 20/30 and 20/20 IOP 09/12 PLAN: - RBA to YAG vitreolysis right eye discussed, written consent obtained, and patient wishes to proceed - YAG vit RE today (09/20/2019) - Return precautions discussed - Return to clinic in 4 weeks for DFE right Patient disposition: Return in about 4 weeks (around 10/18/2019) for Follow Up YAG vit RE, Vision, Pressure, Dilation (right). Toñito Corley, PGY2 Ophthalmology Resident Attending Physician Attestation: Complete documentation of historical and exam elements from today'sencounter can be found in the full encounter summary report (not reduplicated in this progress note). I personally obtained the chief complaint(s) and history of present illness. I confirmed and editedas necessary the review of systems, past medical/surgical history, family history, social history, and examination findings as documented by others; and I examined the patient myself. I personally reviewed the relevant tests, images, and reports as documented above. I formulated and edited as necessary the assessment and plan and discussed the findings and management plan with the patient and family. Attending Physician Procedure Attestation: I was present for the entire procedure. - Martinez Galicia MD VER documented in this encounter Nursing Shila Pb Crowe - 09/20/2019 1:15 PM CST Chief Complaints and History of Present Illnesses Patient presents with ??? Follow Up Chief Complaint(s) and History of Present Illness(es) Follow Up Comments Vitreous degeneration, right - Right Eye. Ramona is here for a YAG procedure RE. She says RE seems the same as last visit. Pb Sebastien COT 12:24 PM September 20, 2019 VER documented in this encounter Plan of Treatment Upcoming Encounters Date Type Specialty Care Team Description 09/10/2022 Office Visit Internal Medicine LogeaMargot man MD [address] [place] [address] [phone] (Wo rk) documented as of this encounter Procedures Procedure Name Priority Date/Time Associated Diagnosis Comme nts HC SEVERING Routine 09/20/2019 1:16 PM Vitreous Results f or this VITREOUS STRANDS, SLEEVER degeneration, right procedure are in LASER Vitreous strand, the results right section. documented in this encounter Results SEVERING VITREOUS STRANDS, LASER (09/20/2019 1:16 PM SLEEVER) Narrative Martinez Galicia MD - 09/20/2019 1: 16 PM SLEEVER Brief Operative Note: Date of Service: September 20, 2019 Attending: Martinez Galicia M.D. Stratigraphy Teacher: none Preoperative diagnosis: Vitreous strands , right eye Postoperative diagnosis: same Procedure: YAG laser vitreolysis, right eye Anesthesia: Topical proparacaine Complications: none After the patient's identification and t he correct surgical site were confirmed, the patient was seated at the YAG laser. A drop of proparacaine was instilled to the affected eye, and t he [place] contact lens was placed. The pupil had been previously dilated. 1 47 shots at 1 pulse per burst and 3.0 mJ of power (441 mJ total) were used to lyse the central vitreous strands. The patient tolerated the proce dure well, and there were no apparent complications. ??A single drop of iopodine was instilled to the eye after the procedure and arrangements were made for the patients intraocular pressure to be measured at 1 hour after the procedure. ?? Attending Physician Procedure Attestatio n: I was present for the entire procedure Martinez Galicia MD School Social Worker, Comprehensive Ophth almology Department of Ophthalmology and Visual N eurosciences [facility] ?? Martinez Galicia MD PROCEDURES documented in this encounter Visit Diagnoses Diagnosis Vitreous degeneration, right - Primary Vitreous degeneration, right - Right Eye Vitreous floater, right Vitreous strand, right documented in this encounter Additional Health Concerns Assessment Noted Time PHQ-9 Depression Total Score: 0 08/17/2019 2:03 PM SLEEVER documented as of this encounter Care Teams Distribution Accounting Clerk Relationship Specialty Start Date End Date Lisseth Vang MD PCP - General 04/13/16 11/14/[address] [place], [place] [address] Carlota Landeros MD MD Urology 04/10/[address] [place], [place] [address] Lisseth Vang MD PCP Family Practice 03/30/16 11/14/[address] [place], [place] [address] Michelle Montana, MODESTA Registered Nurse Urology 05/07/17 Anh Costa APRN INTERPRETER FOR THE DEAF Nurse Practitioner Nurse Practitioner 10/07 Martinez Galicia MD MD Ophthalmology 04/18/[address] [place] [address] Sabino Romano DPM MD Podiatry 08/11/[address] [place] [address] [phone] documented as of this encounter
--- OUTSIDE RECORDS SUMMARY | 2022-07-30 19:23 | XMS_ITS | Encounter Summary ---
:1945 Author Organization [facility] Address [address] [place] [address]. [place] [address] Care Team Providers Name Role Phone Lisseth Vang MD Primary Care Provider Carlota Landeros MD Unavailable Lisseth Vang MD Unavailable Michelle Montana RN Unavailable Anh Costa APRN SECURITY NURSE Unavailable Unavailable Martinez Galicia MD Unavailable Sabino Romano DPM Unavailable Encounter Details Date Type Department Care Team Description 09/20/2019 Travel Social History Tobacco Use Types Packs/Day [...] Office Visit Internal Medicine Margot Branham MD [address] [place] [address] (Wo rk) documented as of this encounter Visit Diagnoses Not on filedocumented in this encounter Additional Health Concerns Assessment Noted Time PHQ-9 Depression Total Score: 0 08/17/2019 2:03 PM SPOILAGE WORKER documented as of this encounter Care Teams Survey Research Teacher Relationship Specialty Start Date End Date Lisseth Vang MD PCP - General 04/13/16 11/14/[address] [place] [address] Carlota Landeros MD MD Urology 04/10/[address] [place], [place] [address] Lisseth Vang MD PCP Family Practice 03/30/16 11/14/[address] [place] [address] Michelle Montana, MODESTA Registered Nurse Urology 05/07/17 Anh Costa APRN SECURITY NURSE Nurse Practitioner Nurse Practitioner 10/07 Martinez Galicia MD MD Ophthalmology 04/18/18 420 [place] [address] Sabino Romano DPM MD Podiatry 08/11/[address] [address] documented as of this encounter
--- OUTSIDE RECORDS SUMMARY | 2022-07-30 19:23 | XMS_ITS | Encounter Summary ---
:1945 Author Organization [facility] Address [address] [place] [address]. [place] [address] Care Team Providers Name Role Phone Carlota Landeros MD Unavailable Michelle Montana RN Unavailable Anh Costa ASSISTANT BANQUET MANAGER WOOD DIE MAKER Unavailable Unavailable Martinez Galicia MD Unavailable Sabino Romano DPM Unavailable Kyle Roberts MD Primary Care Provider Mehreen Johnston MD PhD Unavailable [phone] Encounter Details Date Type Department Care Team Description 03/28/2020 Orders Only [facility] Ophthalmolo Levy Simmons, Encounter for [address] [place] [address] screening for other [address] [place] [address] viral diseases [place], [place] (Primary Dx) [phone] Social History Tobacco Use Types Packs/Day Years [...] Office Visit Internal Medicine LogeaisMargot MD [address] [place] [address] (Wo rk) documented as of this encounter Visit Diagnoses Diagnosis Encounter for screening for other viral diseases - Primary documented in this encounter Additional Health Concerns Assessment Noted Time PHQ-9 Depression Total Score: 0 11/22/2019 10:49 AM CS T documented as of this encounter Care Teams Microbiology Coordinator Relationship Specialty Start Date End Date Kyle Roberts MD PCP - General Family Practice 11/15/19 10/27/[address] [place], [place] [address] Carlota Landeros MD MD Urology 04/10/[address] [place], [place] [address] Michelle Montana, RN Registered Nurse Urology 05/07/17 Anh Costa APRN WOOD DIE MAKER Nurse Practitioner Nurse Practitioner 10/07 Martinez Galicia MD MD Ophthalmology 04/18/18 420 [place], [place] [address] Sabino Romano DPM MD Podiatry 08/11/[address] [phone] Mehreen Johnston MD PhD MD Family Practice 11/15/[address] [place] [address] [phone] documented as of this encounter
--- OUTSIDE RECORDS SUMMARY | 2022-07-30 19:23 | XMS_ITS | Encounter Summary ---
:1945 Author Organization [facility] Address [address] [place] [address]. [place] [address] Care Team Providers Name Role Phone Carlota Landeros MD Unavailable Michelle Montana RN Unavailable Anh Costa ADJUNCT HISTORY INSTRUCTOR SPECIAL LIBRARY LIBRARIAN Unavailable Unavailable Martinez Galicia MD Unavailable Sabino Romano DPM Unavailable Kyle Roberts MD Primary Care Provider Mehreen Johnston MD PhD Unavailable [phone] Encounter Details Date Type Department Care Team Description 11/15/2019 Travel Social History Tobacco Use Types Packs/Day [...] Visit Internal Medicine Margot Branham MD [address] [place] [address] (Wo rk) documented as of this encounter Visit Diagnoses Not on filedocumented in this encounter Additional Health Concerns Assessment Noted Time PHQ-9 Depression Total Score: 0 08/17/2019 2:03 PM REHABILITATION AIDE/SCHEDULER documented as of this encounter Care Teams Rotary Envelope Machine Operator Relationship Specialty Start Date End Date Kyle Roberts MD PCP - General Family Practice 11/15/19 10/27/[address] [place] [address] Carlota Landeros MD MD Urology 04/10/[address] [place], [place] [phone] Michelle Montana, RN Registered Nurse Urology 05/07/17 Anh Costa APRN SPECIAL LIBRARY LIBRARIAN Nurse Practitioner Nurse Practitioner 10/07 Martinez Galicia MD MD Ophthalmology 04/18/18 420 [place] [address] Sabino Romano DPM MD Podiatry 08/11/[address] [address] Mehreen Johnston MD PhD MD Family Practice 11/15/19 909 [place] [address] documented as of this encounter
--- OUTSIDE RECORDS SUMMARY | 2022-07-30 19:23 | XMS_ITS | Encounter Summary ---
:1945 Author Organization [facility] Address [address] [place] [address]. [place] [address] Care Team Providers Name Role Phone Carlota Landeros MD Unavailable Michelle Montana RN Unavailable Anh Costa MECHANICAL PLANNER NUTRITIONIST PUBLIC HEALTH Unavailable Unavailable Martinez Galicia MD Unavailable Sabino Romano DPM Unavailable Kyle Roberts MD Primary Care Provider Mehreen Johnston MD PhD Unavailable [phone] Margot Branham MD Unavailable Encounter Details Date Type Department Care Team Description 04/17/2020 Travel Social History Tobacco Use Types Packs/Day [...] Office Visit Internal Medicine Margot Branham MD [address] [place] [address] (Wo rk) documented as of this encounter Visit Diagnoses Not on filedocumented in this encounter Additional Health Concerns Assessment Noted Time PHQ-9 Depression Total Score: 0 11/22/2019 10:49 AM CS T documented as of this encounter Care Teams Joiner Apprentice Relationship Specialty Start Date End Date Kyle Roberts MD PCP - General Family Practice 11/15/19 10/27/[address] [place], [place] [phone] Carlota Landeros MD MD Urology 04/10/[address] [place], [place] [address] Michelle Montana, MODESTA Registered Nurse Urology 05/07/17 Anh Costa APRN NUTRITIONIST PUBLIC HEALTH Nurse Practitioner Nurse Practitioner 10/07 Martinez Galicia MD MD Ophthalmology 04/18/[address] [place] [address] [phone] Sabino Romano DPM MD Podiatry 08/11/[address] [phone] Mehreen Johnston MD PhD MD Family Practice 11/15/[address] [place] [address] [phone] Margot Branham MD MD Internal Medicine 04/17/[address] [phone] documented as of this encounter
--- OUTSIDE RECORDS SUMMARY | 2022-07-30 19:23 | XMS_ITS | Encounter Summary ---
:1945 Author Organization [place] Address [address] [place] [address]. [place] [address] Care Team Providers Name Role Phone Carlota Landeros MD Unavailable Michelle Montana RN Unavailable Anh Costa HEAD BELLHOP CAPTAIN MANAGER INPATIENT Unavailable Unavailable Martinez Galicia MD Unavailable Sabino Romano DPM Unavailable Kyle Roberts MD Primary Care Provider Mehreen Johnston MD PhD Unavailable [phone] Margot Branham MD Unavailable Reason for Visit Reason Comments Eye Discharge Both Eyes Encounter Details Date Type Department Care Team Description 05/29/2020 Office Visit [facility] Sergio Galicia MD [address] [place] [address] Left without seen Clinic - [place] Celeste Mcgrath MD [address] [address] [place] [address] [facility] 9th [place] Clin [address] [place] [address] Social History Tobacco Use Types Packs/Day Years Used Date Smoking Tobacco: Never Smokeless Tobacco: Never Alcohol Use Standard Drinks/Week Comments Yes 0 (1 standard drink = 0.6 oz pure alcoho l) wine few times/wk Sex Assigned at Date Recorded Female 12/20/2018 4:10 PM CDT COVID-19 Exposure Response Date Recorded In the last month, have you been in contact with No / Unsure 05/29/2020 8:36 AM CDT someone who was confirmed or suspected to have Coronavirus / COVID-19? documented as of this encounter Nursing Notes Marcelina Bynum COMT - 05/29/2020 9:00 AM CDT Chief Complaint(s) and History of Present Illness(es) Eye Discharge Both Eyes In both eyes. Associated symptoms include mattering and discharge. Negative for eye pain, bump on lid and styes. Severity is moderate. Duration of months. Occurring constantly. It is worse in the morning. Since onset it is gradually worsening. Treatments tried include eye drops. Response to treatmentwas no improvement. Comments Pt c/o discharge in BE x the last month and has gotten worse x the last 2 days. The mattering is yellow in color now. Pt gets most of the mattering in the AM. Pt states washing her face in the morninghelps. Vision is a little blurry intermittently through out the day. 2 days ago pt noted a huge string like matter from the RE and a large glob from the LE. BE are a little pink x the last week. AT'shave not helped. Ocular meds: AT's prn BE. LILI Avery 8:59 AM May 29, 2020 documented in this encounter Plan of Treatment Upcoming Encounters Date Type Specialty Care Team Description 09/10/2022 Office Visit Internal Medicine Margot Branham MD [address] 123475 (Wo rk) documented as of this encounter Visit Diagnoses Not on filedocumented in this encounter Additional Health Concerns Assessment Noted Time PHQ-9 Depression Total Score: 0 11/22/2019 10:49 AM CS T documented as of this encounter Care Teams Pepper Picker Relationship Specialty Start Date End Date Kyle Roberts MD PCP - General Family Practice 11/15/19 10/27/[address] [place], [place] [address] Carlota Landeros MD MD Urology 04/10/[address] [place], [place] [address] Michelle Montana, RN Registered Nurse Urology 05/07/17 Anh Costa, HEAD BELLHOP CAPTAIN MANAGER INPATIENT Nurse Practitioner Nurse Practitioner 10/07 Martinez Galicia MD MD Ophthalmology 04/18/18 [address] [place] [address] Sabino Romano DPM MD Podiatry 08/11/[address] [address] Mehreen Johnston MD PhD MD Family Practice 11/15/[address] [place] [address] Margot Branham MD MD Internal Medicine 04/17/[address] [address] documented as of this encounter
--- OUTSIDE RECORDS SUMMARY | 2022-07-30 19:23 | XMS_ITS | Encounter Summary ---
:1945 Author Organization [facility] Address [address] [place] [address]. [place] [address] Care Team Providers Name Role Phone Lisseth Vang MD Primary Care Provider Carlota Landeros MD Unavailable Lisseth Vang MD Unavailable Michelle Montana RN Unavailable Anh Costa APRN METALLURGICAL LAB TECHNICIAN Unavailable Unavailable Martinez Galicia MD Unavailable Sabino Romano DPM Unavailable Reason for Visit Reason Comments Follow Up Encounter Details Date Type Department Care Team Description 11/14/2019 Office Visit [facility] Martinez Galicia Vitre ous Clinic - Latoya Pearson MD degeneration, right - Mota Wangensteen [address] Right Eye (Primary Building [place], [place] Dx) 516 [facility] [address] [facility] Clin 9A [phone] [place], [place] (Work) [address] [phone] Social History Tobacco Use Types Packs/Day Years Used Date Smoking Tobacco: Never Smokeless Tobacco: Never Alcohol Use Standard Drinks/Week Comments Yes 0 (1 standard drink = 0.6 oz pure alcoho l) wine few times/wk Sex Assigned at Date Recorded Female 12/20/2018 4:10 PM CDT documented as of this encounter Progress Notes Martinez Galicia MD - 11/14/2019 12:30 PM CST Chief Complaint(s) and History of Present Illness(es) Follow Up Laterality: right eye Frequency: constantly Timing: throughout the day Course: rapidly improving Associated symptoms: floaters. Negative for eye pain, redness, pain with eye movement and itching Pain scale: 0/10 Comments Pt states that floaters still present, 'looks like a school of fish'. But notes that there are fewer than before the laser. Feels '80% gone'. Has been washing eyelids routinely twice daily and when needs to get out of bed during the night. Feels this treatment has helped irritation. Art tears once to twice a day to BE. MARISOL Florentino COT 12:27 PM 11/14/2019 Review of systems for the eyes was negative other than the pertinent positives/negatives listed in the HPI. Assessment & Plan Yamileth Sheikh is a 74 year old female with the following diagnoses: 1. Vitreous degeneration, right - Right Eye S/P LFT right eye; improved symptoms Remaining floaters are too peripheral for further laser Monitor symptoms for now. Discussed symptoms of retinal tear/detachment and the need to be seen urgently should they occur. Patient disposition: Return in about 1 year (around 11/14/2020) for DFE. Attending Physician Attestation: Complete documentation of historical [...] and management plan with the patient and family.. - Martinez Galicia MD H DOCTOR documented in this encounter Nursing Melany Perez COT - 11/14/2019 12:30 PM CST Chief Complaints and History of Present Illnesses Patient presents with ??? Follow Up Chief Complaint(s) and History of Present Illness(es) Follow Up Laterality: right eye Frequency: constantly Timing: throughout the day Course: rapidly improving Associated symptoms: floaters. Negative for eye pain, redness, pain with eye movement and itching Pain scale: 0/10 Comments Pt states that floaters still present, 'looks like a school of fish'. But notes that there are fewer than before the laser. Feels '80% gone'. Has been washing eyelids routinely twice daily and when needs to get out of bed during the night. Feels this treatment has helped irritation. Art tears once to twice a day to BE. Melany Sanchez COT COT 12:27 PM 11/14/2019 H DOCTOR documented in this encounter Plan of Treatment Upcoming Encounters Date Type Specialty Care Team Description 09/10/2022 Office Visit Internal Medicine Margot Branham MD [address] [phone] (Wo rk) documented as of this encounter Visit Diagnoses Diagnosis Vitreous degeneration, right - Right Eye - Primary documented in this encounter Additional Health Concerns Assessment Noted Time PHQ-9 Depression Total Score: 0 08/17/2019 2:03 PM FAITH DOCTOR documented as of this encounter Care Teams Esthetician/Owner Relationship Specialty Start Date End Date Lisseth Vang MD PCP - General 04/13/16 11/14/[address] [place], [place] [address] Carlota Landeros MD MD Urology 04/10/[address] [place], [place] [address] Lisseth Vang MD PCP Family Practice 03/30/16 11/14/[address] [place], [place] [address] Michelle Montana, MODESTA Registered Nurse Urology 05/07/17 Anh Costa APRN METALLURGICAL LAB TECHNICIAN Nurse Practitioner Nurse Practitioner 10/07 Martinez Galicia MD MD Ophthalmology 04/18/18 420 [place] [address] Sabino Romano DPM MD Podiatry 08/11/[address] [address] documented as of this encounter
--- OUTSIDE RECORDS SUMMARY | 2022-07-30 19:23 | XMS_ITS | Encounter Summary ---
:1945 Author Organization [facility] Address [address] [place] [address]. [place] [address] Care Team Providers Name Role Phone Carlota Landeros MD Unavailable Michelle Montana RN Unavailable Anh Costa BENCH ASSEMBLER ELECTRICAL NATIONAL GUARD MEMBER Unavailable Unavailable Martinez Galicia MD Unavailable Sabino Romano DPM Unavailable Kyle Roberts MD Primary Care Provider Mehreen Johnston MD PhD Unavailable [phone] Reason for Visit Reason Comments Consult For lid darkening Encounter Details Date Type Department Care Team Description 12/11/2019 Office Visit Jody Hussein, Dermatochalasis of both Ophthalmology MD Levy lower eyelids (Primary [address] [facility] [address] [facility] Dx) 4th [place], [place] [phone] Social History Tobacco Use Types Packs/Day Years Used Date Smoking Tobacco: Never Smokeless Tobacco: Never Alcohol Use Standard Drinks/Week Comments Yes 0 (1 standard drink = 0.6 oz pure alcoho l) wine few times/wk Sex Assigned at Date Recorded Female 12/20/2018 4:10 PM CDT documented as of this encounter Progress Notes Levy Hussein MD - 12/11/2019 7:30 AM CDT Chief Complaints and History of Present Illnesses Patient presents with ??? Consult For Spots near lid Chief Complaint(s) and History of Present Illness(es) Consult For In both eyes. Associated symptoms include foreign body sensation (Grainy in LE per pt) and itching (BE per pt). Negative for eye pain, dryness and tearing. Treatments tried include artificial tears. Additional comments: Spots near lid Comments Yamileth Sheikh is being seen today by the request of Dr. Galicia for lid lesions. Patient notes that she has darkness periorbitally in BE, starts nasally and goes under eyes, she feels that it has gotten darker and has been present for about 20 years. Patient is using AT TID OU. Lynda Boyd COT December 11, 2019 7:26 AM -Has noticed dark spots near medial canthal tendon and beneath both eyes x20yrs -Also has noted fat pad protrusion beneath both eyes - gradually worsening over many years -History of BULB 30yrs ago in [facility] -No prior lower lid surgery, botox, filler -No blood thinners Lower lid evaluation Vector: neutral Laxity: 1+ right eye 1+ left eye Fat pads: 2+herniation right eye 2+herniation left eye Tear trough: 3+ right eye 3+left eye Skin excess: 2+ right eye 2+left eye Assessment & Plan Yamileth Sheikh is a 74 year old female with the following diagnoses: 1. Dermatochalasis of both lower eyelids -Consider cosmetic bilateral lower lid blepharoplasty (transconjunctival fat Reposition + skin pinch) Cheryl Moran MD Oculoplastics Fellow Attending Physician Attestation: Complete documentation of historical [...] and management plan with the patient and family.I personally reviewed the ophthalmic test(s) associated with this encounter, agree with the interpretation(s) as documented by the resident/fellow, and have edited the corresponding report(s) as necessary. -Levy Hussein MD Today with Yamileth Greene Kori, I reviewed the indications, risks, benefits, and alternatives of the proposed surgical procedure including, but not limited to, failure obtain the desired result and needfor additional surgery, bleeding, infection, loss of vision, loss of the eye, and the remote possibility of permanent damage to any organ system or with the use of anesthesia. I provided multipleopportunities for the questions, answered all questions to the best of my ability, and confirmed that my answers and my discussion were understood. - Levy Hussein MD 8:05 AM 12/11/2019 documented in this encounter Nursing Notes Elizabeth Boyd - 12/11/2019 7:30 AM CDT Chief Complaints and History of Present Illnesses Patient presents with ??? Consult For lid darkening Chief Complaint(s) and History of Present Illness(es) Consult For Laterality: both eyes Associated symptoms: foreign body sensation (Grainy in LE per pt) and itching (BE per pt). Negative for eye pain, dryness and tearing Treatments tried: artificial tears Comments: lid darkening Comments Yamileth Sheikh is being seen today by the request of Dr. Galicia for lid darkening. Patient notesthat she has darkness periorbitally in BE, starts nasally and goes under eyes, she feels that it hasgotten darker and has been present for about 20 years. Patient is using AT TID OU. Lynda DAMON December 11, 2019 7:26 AM documented in this encounter Plan of Treatment Upcoming Encounters Date Type Specialty Care Team Description 09/10/2022 Office Visit Internal Medicine LogeaMargot man MD [address] [id number] (Wo rk) documented as of this encounter Procedures Procedure Name Priority Date/Time Associated Diagnosis Comme nts VISUAL FIELD Routine 12/11/2019 8:06 AM Dermatochalasis of bot h PTOSIS OU (BOTH CDT lower eyelids EYES) EXTERNAL PHOTOS OU Routine 12/11/2019 8:06 AM Dermatochalasis of both Results for this (BOTH EYES) CDT lower eyelids procedure are in the results section. documented in this encounter Results Migel VF Ptosis OU (12/11/2019 8:06 AM CDT) Narrative This result has an attachment that is no t available. Levy Hussein MD OPHTHALMOLOGY External Photos OU (both eyes) (12/11/2019 8:06 AM CDT) Narrative Levy Hussein MD - 12/11/2019 8:06 A M CDT Right Eye Reliability of the test: Good . Test Findings: Abnormal . Plan: Surgery . Interval: Initial . Left Eye Reliability of the test: Good . Test Findings: Abnormal . Plan: Surgery . Interval: Initial . Notes Consistent with exam. Results documented under Exam and A&P. Levy Hussein MD OPHTHALMOLOGY documented in this encounter Visit Diagnoses Diagnosis Dermatochalasis of both lower eyelids - Primary documented in this encounter Additional Health Concerns Assessment Noted Time PHQ-9 Depression Total Score: 0 11/22/2019 10:49 AM CS T documented as of this encounter Care Teams Registered Dental Hygienist Relationship Specialty Start Date End Date Kyle Roberts MD PCP - General Family Practice 11/15/19 10/27/[address] [place], [place] [address] Carlota Landeros MD MD Urology 04/10/[address] [place], [place] [address] Michelle Montana, MODESTA Registered Nurse Urology 05/07/17 Anh Costa APRN NATIONAL GUARD MEMBER Nurse Practitioner Nurse Practitioner 10/07 Martinez Galicia MD MD Ophthalmology 04/18/18 420 [place], [place] [phone] Sabino Romano DPM MD Podiatry 08/11/[address] [phone] Mehreen Johnston MD PhD Family Practice 11/15/19 909 [place] [address] documented as of this encounter
--- OUTSIDE RECORDS SUMMARY | 2022-07-30 19:23 | XMS_ITS | Encounter Summary ---
:1945 Author Organization [facility] Address [address] [place] [address]. [place] [address] Care Team Providers Name Role Phone Carlota Landeros MD Unavailable Michelle Montana RN Unavailable Anh Costa ASSISTANT PROJECT ENGINEER MASTIC SPRAYER Unavailable Unavailable Martinez Galicia MD Unavailable Sabino Romano DPM Unavailable Kyle Roberts MD Primary Care Provider Mehreen Johnston MD PhD Unavailable [phone] Encounter Details Date Type Department Care Team Description 11/23/2019 Travel Social History Tobacco Use Types Packs/Day [...] Visit Internal Medicine Margot Branham MD [address] [place] [address] (Wo rk) documented as of this encounter Visit Diagnoses Not on filedocumented in this encounter Additional Health Concerns Assessment Noted Time PHQ-9 Depression Total Score: 0 11/22/2019 10:49 AM CS T documented as of this encounter Care Teams Cable Maintainer Relationship Specialty Start Date End Date Kyle Roberts MD PCP - General Family Practice 11/15/19 10/27/[address] [place] [address] Carlota Landeros MD MD Urology 04/10/[address] [place] [address] Michelle Montana, MODESTA Registered Nurse Urology 05/07/17 Anh Costa APRN MASTIC SPRAYER Nurse Practitioner Nurse Practitioner 10/07 Martinez Galicia MD MD Ophthalmology 04/18/18 [address] [place] [address] Sabino Romano DPM MD Podiatry 08/11/[address] [address] Mehreen Johnston MD PhD MD Family Practice 11/15/19 909 [place] [address] documented as of this encounter
--- OUTSIDE RECORDS SUMMARY | 2022-07-30 19:23 | XMS_ITS | Encounter Summary ---
:1945 Author Organization [facility] Address [address] [place] [address]. [place] [address] Care Team Providers Name Role Phone Carlota Landeros MD Unavailable Michelle Montana RN Unavailable Anh Costa APRN LICENSE INSPECTOR Unavailable Unavailable Martinez Galicia MD Unavailable Sabino Romano DPM Unavailable Kyle Roberts MD Primary Care Provider Mehreen Johnston MD PhD Unavailable [phone] Margot Branham MD Unavailable Encounter Details Date Type Department Care Team Description 07/05/2020 Orders Only [facility] for Anh Costa Hyperli pidemia LDL goal Cardiovascular Disease CLAUDIA Marsh LICENSE INSPECTOR <[address] [place] [phone] Social History Tobacco Use Types Packs/Day [...] Visit Internal Medicine Margot Branham MD [address] [place] [address] (Wo rk) documented as of this encounter Results Lipid panel reflex to direct LDL Fasting (09/02/2020 3:22 PM DELIVERY CONSULTANT) [facility] Method Time Signature Cholesterol 175 <200 mg/dL 09/02/2020 [facility] 6:27 PM [facility] Triglycerides 104 <150 mg/dL 09/02/2020 [facility] 6:27 PM [facility] HDL Cholesterol 83 >49 mg/dL 09/02/2020 [facility] 6:27 PM [facility] LDL Cholesterol 72 <100 mg/dL 09/02/2020 [facility] Calculated 6:27 PM [facility] Comment: Desirable: <100 mg/dl Non HDL Cholesterol 93 <130 mg/dL 09/02/2020 6:27 PM [facility] Specimen Anatomical Collection Method Collection Time Receive d Time (Source) Location / / Volume Laterality Blood specimen 09/02/2020 3:22 PM 020 3:23 (specimen) DELIVERY CONSULTANT PM DELIVERY CONSULTANT Anh Costa APRN, CNP LAB - BLOOD ORDERABLES Performing Organization Address City/State/ZIP Code Phon e Number [address] [id number] [facility] documented in this encounter Visit Diagnoses Diagnosis Hyperlipidemia LDL goal <100 Other and unspecified hyperlipidemia documented in this encounter Additional Health Concerns Assessment Noted Time PHQ-9 Depression Total Score: 0 11/22/2019 10:49 AM CS T documented as of this encounter Care Teams Aviation Survival Technician Relationship Specialty Start Date End Date Kyle Roberts MD PCP - General Family Practice 11/15/19 10/27/[address] [place] [address] Carlota Landeros MD MD Urology 04/10/[address] [place] [address] Michelle Montana, MODESTA Registered Nurse Urology 05/07/17 Snyder, Anh Salma, QUALITY SYSTEMS ENGINEER LICENSE INSPECTOR Nurse Practitioner Nurse Practitioner 10/07 Martinez Galicia MD MD Ophthalmology 04/18/18 [address] [place], [place] [address] Sabino Romano DPM MD Podiatry 08/11/[address] [phone] Mehreen Johnston MD PhD MD Family Practice 11/15/[address] [place] [phone] Margot Branham MD MD Internal Medicine 04/17/[address] [place] [phone] documented as of this encounter
--- OUTSIDE RECORDS SUMMARY | 2022-07-30 19:23 | XMS_ITS | Encounter Summary ---
:1945 Author Organization [facility] Address [address] [place] [address]. [place] [address] Care Team Providers Name Role Phone Carlota Landeros MD Unavailable Michelle Montana RN Unavailable Anh Costa CLOUD ADMINISTRATOR CONSTRUCTION CODE ADMINISTRATOR Unavailable Unavailable Martinez Galicia MD Unavailable Sabino Romano DPM Unavailable Kyle Roberts MD Primary Care Provider Mehreen Johnston MD PhD Unavailable [phone] LogMargot sadler MD Unavailable Martinez Galicia MD Unavailable LogMargot sadler MD Unavailable aMrgot Branham MD Primary Care Provider Levy Hussein MD Unavailable Alonso Tejeda MD Unavailable Reason for Visit Reason Onset Date Comments Refill Request 07/01/2020 Refill Request 07/04/2020 rosuvastatin (CRESTO R) 5 MG tablet Encounter Details Date Type Department Care Team Description 07/01/2020 MyC Refill [facility] Damian Villanueva Refil l Request; Refill [facility] Request (rosuvastat... [address] [phone] [place], [place] [phone] (Wo rk) Social History Tobacco Use Types Packs/Day Years Used Date Smoking Tobacco: Never Smokeless Tobacco: Never Alcohol Use Standard Drinks/Week Comments Yes 0 (1 standard drink = 0.6 oz pure alcoho l) wine few times/wk Sex Assigned at Date Recorded Female 12/20/2018 4:10 PM CDT documented as of this encounter Miscellaneous Notes Telephone Encounter - Sheri Abbie - 07/04/2020 10:04 AM CDT [facility] Call Center Phone Message May a detailed message be left on voicemail: yes Reason for Call: Medication Refill Request Has the patient contacted the pharmacy for the refill? Yes Name of medication being requested: rosuvastatin (CRESTOR) 5 MG tablet Provider who prescribed the medication: Dr. Villanueva Pharmacy: [id number] AT [facility] Date medication is needed: As soon as possible, pt is out of medication and her pharmacy said they have been trying to get it filled since last week. Action Taken: Message routed to: [facility] Med refill team Travel Screening: Not Applicable documented in this encounter Plan of Treatment Upcoming Encounters Date Type Specialty Care Team Description 09/10/2022 Office Visit Internal Medicine Margot Branham MD [address] [place] [phone] (Wo rk) documented as of this encounter Visit Diagnoses Diagnosis Hyperlipidemia LDL goal <100 Other and unspecified hyperlipidemia documented in this encounter Additional Health Concerns Assessment Noted Time PHQ-9 Depression Total Score: 0 11/22/2019 10:49 AM CS T documented as of this encounter Care Teams Washer Engineer Helper Relationship Specialty Start Date End Date Kyle Roberts MD PCP - General Family Practice 11/15/19 10/27/[address] [place] [address] Margot Branham MD PCP - General Internal Medicine 10/28/[address] [place] [phone] Carlota Landeros MD MD Urology 04/10/[address] [place], [place] [address] Michelle Montana, MODESTA Registered Nurse Urology 05/07/17 Anh Costa APRN Nurse Practitioner Nurse Practitioner 10/07/17 CONSTRUCTION CODE ADMINISTRATOR Martinez Galicia MD Ophthalmology 04/18/[address] [place] [phone] Sabino Romano DPM MD Podiatry 08/11/18 [facility] [place][note 2][address] [phone] Mehreen Johnston MD Family Practice 11/15/19 MD PhD [address] [place] [phone] Margot Branham MD MD Internal Medicine 04/17/[address] [place] [phone] Martinez Galicia, Assigned Surgical 07/26/20 MD Provider [address] [place] [phone] Margot Branham MD Assigned PCP 09/15/[address] [place] [phone] Levy Hussein MD Assigned Surgical 03/23/21 06/14/[address] [place] [address] [place] [address] Alonso Tejeda MD MD Internal Medicine 06/19/[address] [place] [address] documented as of this encounter
--- OUTSIDE RECORDS SUMMARY | 2022-07-30 19:23 | XMS_ITS | Encounter Summary ---
:1945 Author Organization [facility] Address [address] [place] [address]. [place] [address] Care Team Providers Name Role Phone Carlota Landeros MD Unavailable Michelle Montana RN Unavailable Anh Costa STRUCTURAL DESIGN ENGINEER HEAD INSPECTOR AND CENTER MARKER Unavailable Unavailable Martinez Galicia MD Unavailable Sabino Romano DPM Unavailable Kyle Roberts MD Primary Care Provider Mehreen Johnston MD PhD Unavailable [phone] Margot Branham MD Unavailable Encounter Details Date Type Department Care Team Description 05/29/2020 Travel Social History Tobacco Use Types Packs/Day [...] Office Visit Internal Medicine Margot Branham MD [address] [place] [address] (Wo rk) documented as of this encounter Visit Diagnoses Not on filedocumented in this encounter Additional Health Concerns Assessment Noted Time PHQ-9 Depression Total Score: 0 11/22/2019 10:49 AM CS T documented as of this encounter Care Teams Laboratory Administrative Director Relationship Specialty Start Date End Date Kyle Roberts MD PCP - General Family Practice 11/15/19 10/27/[address] [place], [place] [address] Carlota Landeros MD MD Urology 04/10/[address] [place], [place] [address] Michelle Montana, RN Registered Nurse Urology 05/07/17 Anh Costa APRN HEAD INSPECTOR AND CENTER MARKER Nurse Practitioner Nurse Practitioner 10/07 Martinez Galicia MD MD Ophthalmology 04/18/[address] [place] [address] Sabino Romano DPM MD Podiatry 08/11/[address] [phone] Mehreen Johnston MD PhD MD Family Practice 11/15/[address] [place] [address] [phone] Margot Branham MD MD Internal Medicine 04/17/[address] [phone] documented as of this encounter
--- OUTSIDE RECORDS SUMMARY | 2022-07-30 19:23 | XMS_ITS | Encounter Summary ---
:1945 Author Organization [place] Address [address] [place] [address]. [place] [address] Care Team Providers Name Role Phone Carlota Landeros MD Unavailable Michelle Montana RN Unavailable Anh Costa PORTFOLIO ACCOUNTANT OCULAR CARE TECHNOLOGIST Unavailable Unavailable Martinez Galicia MD Unavailable Sabino Romano DPM Unavailable Kyle Roberts MD Primary Care Provider Mehreen Johnston MD PhD Unavailable [phone] Encounter Details Date Type Department Care Team Description 11/20/2019 Travel Social History Tobacco Use Types Packs/Day [...] Office Visit Internal Medicine Margot Branham MD [address] [place] [address] (Wo rk) documented as of this encounter Visit Diagnoses Not on filedocumented in this encounter Additional Health Concerns Assessment Noted Time PHQ-9 Depression Total Score: 0 08/17/2019 2:03 PM OPTICAL GOODS DRILL OPERATOR documented as of this encounter Care Teams Last Puller Relationship Specialty Start Date End Date Kyle Roberts MD PCP - General Family Practice 11/15/19 10/27/[address] [place] [address] Carlota Landeros MD MD Urology 04/10/[address] [place], [place] [phone] Michelle Montana, RN Registered Nurse Urology 05/07/17 Anh Costa APRN OCULAR CARE TECHNOLOGIST Nurse Practitioner Nurse Practitioner 10/07 Martinez Galicia MD MD Ophthalmology 04/18/18 420 [place] [address] Sabino Romano DPM MD Podiatry 08/11/[address] [address] Mehreen Johnston MD PhD MD Family Practice 11/15/19 909 [place] [address] documented as of this encounter
--- OUTSIDE RECORDS SUMMARY | 2022-07-30 19:23 | XMS_ITS | Encounter Summary ---
:1945 Author Organization [facility] Address [address] [place] [address]. [place] [address] Care Team Providers Name Role Phone Carlota Landeros MD Unavailable Michelle Montana RN Unavailable Anh Costa PROCESS CONTROL SPECIALIST PRODUCTION CONTROL PLANNER Unavailable Unavailable Martinez Galicia MD Unavailable Sabino Romano DPM Unavailable Kyle Roberts MD Primary Care Provider Mehreen Johnston MD PhD Unavailable [phone] Margot Branham MD Unavailable Martinez Galicia MD Unavailable Reason for Visit Reason Comments Health Maintenance Encounter Details Date Type Department Care Team Description 08/05/2020 Documentation Only [facility] Ankita Danielson, Health Maintenance Coordination, [facility] Ambulatory [address] [place] [address] Social History Tobacco Use Types Packs/Day [...] Office Visit Internal Medicine Margot Branham MD [address] [place] [address] (Wo rk) documented as of this encounter Procedures Procedure Name Priority Date/Time Associated Diagnosis Comme nts HIM COLONOSCOPY SCAN Routine 07/01/2020 Results for this procedure are i n the results section . documented in this encounter Results - HIM Screen Colonoscopy Scan (07/01/2020) Narrative Ankita Danielson, COST ACCOUNTING MANAGER - 07/01/2020 Result Impression Post-op Diagnoses: ? - The entire examined colon is no rmal. ? - Scar in the distal rectum. ? - No specimens collected. Result Narrative [facility] 9 GI GI Patient Name: Yamileth Sheikh Date of : 1945 Age: 74 Gender: Female Procedure Date: 07/01/2020 Procedure: ? Colonosc opy Providers: ? Kevin Lucero MD, Donte Lara (Fellow) Referring Provider: ?Merrill Harris Pre-op Diagnoses: ?Family hist ory of colon cancer in a first-degree ? rel ative before age 60 years Recommendation: ? - Return to referring physician a s previously scheduled. Findings: ? The colon (entire examined portio n) appeared normal. ? A scar was found in the distal re ctum. The scar tissue was healthy in ? appearance. Procedural Details: ? The patient was seen, evaluated, history reviewed, airway and heart-lung ? exams were performed by licensed provider and were satisfactory for ? planned level of sedation care. ? The risks, benefits and alternati ves for the procedure and sedation were ? discussed and informed consent wa s obtained. A procedural pause was ? conducted in the presence of assi sting personnel to verify the correct ? patient identity and procedure to be performed. Throughout the ? procedure, the patient's blood pr essure, pulse, and oxygen saturations ? were monitored continuously. The Pediatric Colonoscope was introduced ? under direct vision through the a nus and advanced to the cecum, ? identified by the appendiceal werner fice, IC valve and transillumination. ? The colonoscopy was performed wit hout difficulty. The patient tolerated ? the procedure well. The quality o f the bowel preparation was evaluated ? using the BBPS ([place] Bowel Prep aration Scale) with scores of: Right ? Colon = 2 (minor amount of residu al staining, small fragments of stool ? and/or opaque liquid, but mucosa seen well), Transverse Colon = 2 (minor ? amount of residual staining, smal l fragments of stool and/or opaque ? liquid, but mucosa seen well) and Left Colon = 2 (minor amount of ? residual staining, small fragment s of stool and/or opaque liquid, but ? mucosa seen well). The total BBPS score equals 6. The quality of the ? bowel preparation was good. Estimated Blood Loss: ?Estimated blo od loss: none. Complications: ? No immedia te complications. Sedation: ? Moderate (conscious) sedation was administered by the endoscopy nurse ? and supervised by the endoscopist . The following parameters were ? monitored: oxygen saturation, hea rt rate, blood pressure, and response ? to care. Total physician intraser vice time was 40 minutes. Attending Participation: I was present a nd participated during the entire ? pro cedure, including non-burgos portions. Kevin Lucero MD 07/01/2020 10:23:26 AM This report has been signed electronical ly. Number of Addenda: 0 Provider Outside PROCEDURES documented in this encounter Visit Diagnoses Not on filedocumented in this encounter Additional Health Concerns Assessment Noted Time PHQ-9 Depression Total Score: 0 11/22/2019 10:49 AM CS T documented as of this encounter Care Teams Chief Of Internal Medicine Relationship Specialty Start Date End Date Kyle Roberts MD PCP - General Family Practice 11/15/19 10/27/[address] [place], [place] [address] Carlota Landeros MD MD Urology 04/10/[address] [place], [place] [address] Michelle Montana, RN Registered Nurse Urology 05/07/17 Anh Costa APRN Nurse Practitioner Nurse Practitioner 10/07/17 PRODUCTION CONTROL PLANNER Martinez Galicia MD Ophthalmology 04/18/[address] [address] Sabino Romano DPM MD Podiatry 08/11/[address] [address] Mehreen Johnston MD Family Practice 11/15/19 MD PhD [address] [place] [phone] Margot Branham MD MD Internal Medicine 04/17/[address] [place] [address] [phone] Martinez Galicia, Assigned Surgical 07/26/20 MD Provider [address] [place] [address] [phone] documented as of this encounter
--- OUTSIDE RECORDS SUMMARY | 2022-07-30 19:23 | XMS_ITS | Encounter Summary ---
:1945 Author Organization [facility] Address [address] [place] [address]. [place] [address] Care Team Providers Name Role Phone Lisseth Vang MD Primary Care Provider Carlota Landeros MD Unavailable Lisseth Vang MD Unavailable Michelle Montana RN Unavailable Anh Costa APRN PROPOSAL MANAGER Unavailable Unavailable Martinez Galicia MD Unavailable Sabino Romano DPM Unavailable Encounter Details Date Type Department Care Team Description 09/05/2019 Ancillary Procedure [facility] Nicoledanny, Left breast lump Imaging MD Lisseth [address] [address] Social History Tobacco Use Types Packs/Day Years [...] Office Visit Internal Medicine LogeaMargot man MD [address] [place] [address] (Wo rk) documented as of this encounter Procedures Procedure Name Priority Date/Time Associated Comments Diagnosis MA DIAGNOSTIC Routine 09/05/2019 3:16 PM Left breast lump Resu lts for this BILATERAL W/ [place] [employer] COMMUNITY [employer]ANNING procedure are in the results section. documented in this encounter Results US Breast Left Limited 1-3 Quadrants (09/05/2019 3:16 PM [employer]ING) Anatomical Region Laterality Modality Breast Left Ultrasound Specimen (Source) Anatomical Location Collection Method / Collectio n Time Received Time / Laterality Volume Impressions 09/05/2019 3:33 PM [employer]EC[employer]IVE COMMUNITY [employer]ING IMPRESSION: BI-RADS CATEGORY: 1 - ??NEGATIVE. RECOMMENDED FOLLOW-UP: Annual Mammograph y. Clinical follow-up physician palpated ar ea of concern. ??Given lack of imaging findings in the left ??breast, m anagement would need to be based on clinical grounds. The patient was given the results of the examination. TYE MARTINEZ MD Narrative 09/05/2019 3:33 PM [employer]IVE COMM[employer]ITY [employer] Examination: Bilateral digital diagnostic mammography and digital [...] tissue without suspicious finding. Lisseth Vang MD IM US ORDERABLES MA Diagnostic Bilateral w/[place] (09/05/2019 3:16 PM [employer] COMMUNITY [employer]ING) Anatomical Region Laterality Modality Breast Bilateral Mammography Specimen (Source) Anatomical Location Collection Method / Collectio n Time Received Time / Laterality Volume Impressions 09/05/2019 3:33 PM EXECUTIVE COMMUNITY PLANNING IMPRESSION: BI-RADS CATEGORY: 1 - ??NEGATIVE. RECOMMENDED FOLLOW-UP: Annual Mammograph y. Clinical follow-up physician palpated ar ea of concern. ??Given lack of imaging findings in the left ??breast, m anagement would need to be based on clinical grounds. The patient was given the results of the examination. TYE MARTINEZ MD Narrative 09/05/2019 3:33 PM [employer]IVE COMMUNITY [employer]ING Examination: Bilateral digital diagnostic mammography and digital [...] Depression Total Score: 0 08/17/2019 2:03 PM EXEC[employer]IVE COMMUNITY [employer]ING documented as of this encounter Care Teams Preanalytics Team Lead Relationship Specialty Start Date End Date Lisseth Vang MD PCP - General 04/13/16 11/14/[address] [place], [place] [address] Carlota Landeros MD MD Urology 04/10/[address] [place], [place] [address] Lisseth Vang MD PCP Family Practice 03/30/16 11/14/[address] [place], [place] [address] Michelle Montana, MODESTA Registered Nurse Urology 05/07/17 Anh Costa, MED SURG NURSE PROPOSAL MANAGER Nurse Practitioner Nurse Practitioner 10/07 Martinez Galicia MD MD Ophthalmology 04/18/18 [address] [place] [address] Sabino Romano DPM MD Podiatry 08/11/18 [facility] [address] [phone] documented as of this encounter
--- OUTSIDE RECORDS SUMMARY | 2022-07-30 19:23 | XMS_ITS | Encounter Summary ---
:1945 Author Organization [facility] Address [address] [place] [address]. [place] [address] Care Team Providers Name Role Phone Lisseth Vang MD Primary Care Provider Carlota Landeros MD Unavailable Lisseth Vang MD Unavailable Michelle Montana RN Unavailable Anh Costa APRN STEAM OVEN OPERATOR Unavailable Unavailable Martinez Galicia MD Unavailable Sabino Romano DPM Unavailable Kyle Rboerts MD Primary Care Provider Mehreen Johnston MD PhD Unavailable [phone] LogMargot sadler MD Unavailable Martinez Galicia MD Unavailable LogMargot sadler MD Unavailable Margot Branham MD Primary Care Provider Levy Hussein MD Unavailable Encounter Details Date Type Department Care Team Description 11/06/2019 Records - [facility] CONVERSION Scan, Non-Provider Social History Tobacco Use Types Packs/Day Years [...] Office Visit Internal Medicine Margot Branham MD [address] [place] [address] [phone] (Wo rk) documented as of this encounter Visit Diagnoses Not on filedocumented in this encounter Additional Health Concerns Assessment Noted Time PHQ-9 Depression Total Score: 0 08/17/2019 2:03 PM FRUIT GRADER OPERATOR documented as of this encounter Care Teams Oxidation Operator Relationship Specialty Start Date End Date Lisseth Vang, PCP - General 04/13/16 11/14/[address] [place], [place] [address] Kyle Roberts MD PCP - General Family Practice 11/15/19 10/27/[address] [place], [place] [address] Margot Branham MD PCP - General Internal Medicine 10/28/[address] [place] [address] Carlota Landeros MD MD Urology 04/10/[address] [place], [place] [address] Lisseth Vang, PCP Family Practice 03/30/[address] [place], [place] [address] Michelle Montana, MODESTA Registered Nurse Urology 05/07/17 Julissa, Anh Salma, EGG SORTER Nurse Practitioner Nurse Practitioner 10/07/17 STEAM OVEN OPERATOR Martinez Galicia MD Ophthalmology 04/18/[address] [place] [address] [phone] Sabino Romano DPM MD Podiatry 08/11/[address] [phone] Mehreen Johnston MD Family Practice 11/15/19 MD PhD [address] [place] [address] [phone] Margot Branham MD MD Internal Medicine 04/17/[address] [place] [address] [phone] Martinez Galicia, Assigned Surgical 07/26/20 MD Provider [address] [place] [address] [phone] Margot Branham MD Assigned PCP 09/15/[address] [place] [address] [phone] Levy Hussein MD Assigned Surgical 03/23/21 06/14/[address] [place] [address] [phone] documented as of this encounter
--- OUTSIDE RECORDS SUMMARY | 2022-07-30 19:23 | XMS_ITS | Encounter Summary ---
:1945 Author Organization [facility] Address [address] [place] [address]. [place] [address] Care Team Providers Name Role Phone Lisseth Vang MD Primary Care Provider Carlota Landeros MD Unavailable Lisseth Vang MD Unavailable Michelle Montana RN Unavailable Anh Costa APRN STEAMFITTER APPRENTICE Unavailable Unavailable Martinez Galicia MD Unavailable Sabino Romano DPM Unavailable Encounter Details Date Type Department Care Team Description 09/05/2019 Travel Social History Tobacco Use Types Packs/Day [...] Office Visit Internal Medicine Margot Branham MD [address] [place] [address] (Wo rk) documented as of this encounter Visit Diagnoses Not on filedocumented in this encounter Additional Health Concerns Assessment Noted Time PHQ-9 Depression Total Score: 0 08/17/2019 2:03 PM GRADER OPERATOR documented as of this encounter Care Teams Oil Scout Relationship Specialty Start Date End Date Lisseth Vang MD PCP - General 04/13/16 11/14/[address] [place] [address] Carlota Landeros MD MD Urology 04/10/[address] [place], [place] [address] Lisseth Vang MD PCP Family Practice 03/30/16 11/14/[address] [place] [address] Michelle Montaan, MODESTA Registered Nurse Urology 05/07/17 Anh Costa APRN STEAMFITTER APPRENTICE Nurse Practitioner Nurse Practitioner 10/07 Martinez Galicia MD MD Ophthalmology 04/18/18 420 [place] [address] Sabino Romano DPM MD Podiatry 08/11/[address] [address] documented as of this encounter
--- OUTSIDE RECORDS SUMMARY | 2022-07-30 19:23 | XMS_ITS | Encounter Summary ---
:1945 Author Organization [facility] Address [address] [place] [address]. [place] [address] Care Team Providers Name Role Phone Carlota Landeros MD Unavailable Michelle Montana RN Unavailable Anh Costa EQUIPMENT MAINTENANCE TECHNICIAN IT APPLICATION ADMINISTRATOR Unavailable Unavailable Martinez Galicia MD Unavailable Sabino Romano DPM Unavailable Kyle Roberts MD Primary Care Provider Mehreen Johnston MD PhD Unavailable [phone] Encounter Details Date Type Department Care Team Description 12/11/2019 PRE VISIT [facility] Ophthalmolo Levy Simmons MD [address] [place], [place] [address] [place] [phone] Social History Tobacco Use Types Packs/Day Years Used Date Smoking Tobacco: Never Smokeless Tobacco: Never Alcohol Use Standard Drinks/Week Comments Yes 0 (1 standard drink = 0.6 oz pure alcoho l) wine few times/wk Sex Assigned at Date Recorded Female 12/20/2018 4:10 PM CDT documented as of this encounter Miscellaneous Notes Telephone Encounter - Lesley Gonzalez - 11/21/2019 6:55 AM CST FUTURE VISIT INFORMATION FUTURE VISIT INFORMATION: ?? Date: 12/11/19 ?? Time: 7:30am ?? Location: [facility] REFERRAL INFORMATION: ?? Referring provider:?? Martinez Galicia ?? Referring providers clinic:?? [facility] ?? RECORDS REQUESTED FROM: ? Clinic name Comments Records Status Imaging Status [facility] OV/referral 11/14/19-Frida FREEMAN ? AL PROGRAM MANAGER documented in this encounter Plan of Treatment Upcoming Encounters Date Type Specialty Care Team Description 09/10/2022 Office Visit Internal Medicine Margot Branham MD [address] [address] (Wo rk) documented as of this encounter Visit Diagnoses Not on filedocumented in this encounter Additional Health Concerns Assessment Noted Time PHQ-9 Depression Total Score: 0 11/22/2019 10:49 AM CS T documented as of this encounter Care Teams Tow Operator Relationship Specialty Start Date End Date Kyle Roberts MD PCP - General Family Practice 11/15/19 10/27/[address] [place], [place] [address] Carlota Landeros MD MD Urology 04/10/[address] [place] [address] Michelle Montana, MODESTA Registered Nurse Urology 05/07/17 Anh Costa APRN IT APPLICATION ADMINISTRATOR Nurse Practitioner Nurse Practitioner 10/07 Martinez Galicia MD MD Ophthalmology 04/18/18 420 [place] [address] Sabino Romano DPM MD Podiatry 08/11/[address] [phone] Mehreen Johnston MD PhD MD Family Practice 11/15/[address] [place] [address] documented as of this encounter
--- OUTSIDE RECORDS SUMMARY | 2022-07-30 19:23 | XMS_ITS | Encounter Summary ---
:1945 Author Organization [facility] Address [address] [place] [address]. [place] [address] Care Team Providers Name Role Phone Carlota Landeros MD Unavailable Michelle Montana RN Unavailable Anh Costa APRN LOG OPERATIONS COORDINATOR Unavailable Unavailable Martinez Galicia MD Unavailable Sabino Romano DPM Unavailable Kyle Roberts MD Primary Care Provider Mehreen Johnston MD PhD Unavailable [phone] Encounter Details Date Type Department Care Team Description 12/01/2019 Telephone [facility] Women's Kyle Martinez MD [facility] [address] [facility] [place] [address] [place] [address],[facility] 300 606 24[facility] 88 [place], [place] [address] Social History Tobacco Use Types Packs/Day Years Used Date Smoking Tobacco: Never Smokeless Tobacco: Never Alcohol Use Standard Drinks/Week Comments Yes 0 (1 standard drink = 0.6 oz pure alcoho l) wine few times/wk Sex Assigned at Date Recorded Female 12/20/2018 4:10 PM CDT documented as of this encounter Miscellaneous Notes Telephone Encounter - Kyle Roberts MD - 12/01/2019 5:49 PM CST Called patient with results of DEXA which showed T score now of -5.5, from lowest T score of -1.0 [id number]. Discussed that this change is rapid and dramatic; also do need to consider possiblity of some error given the vast difference in score over short time without explanation. Recommend she move up her appointment at [facility] from January to December to have this evaluated sooner, andmay want images sent to [facility] as well. RVISOR PACKING ROOM documented in this encounter Plan of Treatment Upcoming Encounters Date Type Specialty Care Team Description 09/10/2022 Office Visit Internal Medicine LogeaMargot man MD [address] [address] (Wo rk) documented as of this encounter Visit Diagnoses Not on filedocumented in this encounter Additional Health Concerns Assessment Noted Time PHQ-9 Depression Total Score: 0 11/22/2019 10:49 AM CS T documented as of this encounter Care Teams Buttonhole Maker Relationship Specialty Start Date End Date Kyle Roberts MD PCP - General Family Practice 11/15/19 10/27/[address] [place] [address] Carlota Landeros MD MD Urology 04/10/[address] [place], [place] [address] Michelle Montana, MODESTA Registered Nurse Urology 05/07/17 Anh Costa APRN LOG OPERATIONS COORDINATOR Nurse Practitioner Nurse Practitioner 10/07 Martinez Galicia MD MD Ophthalmology 04/18/18 420 [place] [address] Sabino Romano DPM MD Podiatry 08/11/[address] [place] [phone] Mehreen Johnston MD PhD MD Family Practice 11/15/19 909 [place], [place] [address] documented as of this encounter
--- OUTSIDE RECORDS SUMMARY | 2022-07-30 19:23 | XMS_ITS | Encounter Summary ---
:1945 Author Organization [facility] Address [address] [place] [address]. [place] [address] Care Team Providers Name Role Phone Carlota Landeros MD Unavailable Michelle Montana RN Unavailable Anh Costa APRN TELEPHONE STATION REPAIRER Unavailable Unavailable Martinez Galicia MD Unavailable Sabino Romano DPM Unavailable Kyle Roberts MD Primary Care Provider Mehreen Johnston MD PhD Unavailable [phone] Reason for Visit Reason Onset Date Comments Refill Request 12/12/2019 irbesartan (AVAPRO) 150 MG tablet Encounter Details Date Type Department Care Team Description 12/12/2019 Refill [facility] Heart Anh Costa, Refill Request Clinic [facility] CLAUDIA TELEPHONE STATION REPAIRER (irbesartan (AVAPRO) [address] [facility] SE MG tablet) [place] [address] Social History Tobacco Use Types [...] 09/10/2022 Office Visit Internal Medicine LogeaisMargot MD [address] [place] [address] (Wo rk) documented as of this encounter Visit Diagnoses Diagnosis Essential hypertension Unspecified essential hypertension documented in this encounter Additional Health Concerns Assessment Noted Time PHQ-9 Depression Total Score: 0 11/22/2019 10:49 AM CS T documented as of this encounter Care Teams Asphalt Tile Floor Layer Relationship Specialty Start Date End Date Kyle Roberts MD PCP - General Family Practice 11/15/19 10/27/[address] [place], [place] [address] Carlota Landeros MD MD Urology 04/10/[address] [place], [place] [address] Michelle Montana, RN Registered Nurse Urology 05/07/17 Anh Costa APRN TELEPHONE STATION REPAIRER Nurse Practitioner Nurse Practitioner 10/07 Martniez Galicia MD MD Ophthalmology 04/18/18 420 [place], [place] [address] Sabino Romano DPM MD Podiatry 08/11/[address] [phone] Mehreen Johnston MD PhD MD Family Practice 11/15/[address] [place] [phone] documented as of this encounter
--- OUTSIDE RECORDS SUMMARY | 2022-07-30 19:23 | XMS_ITS | Encounter Summary ---
:1945 Author Organization [facility] Address [address] [place] [address]. [place] [address] Care Team Providers Name Role Phone Carlota Landeros MD Unavailable iMchelle Montana RN Unavailable Anh Costa PRINCIPAL STATISTICAL SCIENTIST TRUCK RENTAL MANAGER Unavailable Unavailable Martinez Galicia MD Unavailable Sabino Romano DPM Unavailable Kyle Roberts MD Primary Care Provider Mehreen Johnston MD PhD Unavailable [phone] Encounter Details Date Type Department Care Team Description 01/18/2020 Travel Social History Tobacco Use Types Packs/Day Years Used Date Smoking Tobacco: Never Smokeless Tobacco: Never Alcohol Use Standard Drinks/Week Comments Yes 0 (1 standard drink = 0.6 oz pure alcoho l) wine few times/wk Sex Assigned at Date Recorded Female 12/20/2018 4:10 PM CDT COVID-19 Exposure Response Date Recorded In the last month, have you been in contact with No / Unsure 01/18/2020 1:43 PM CDT someone who was confirmed or suspected to have Coronavirus / COVID-19? documented as of this encounter Plan of Treatment Upcoming Encounters Date Type Specialty Care Team Description 09/10/2022 Office Visit Internal Medicine Margot Branham MD [address] [address] (Wo rk) documented as of this encounter Visit Diagnoses Not on filedocumented in this encounter Additional Health Concerns Assessment Noted Time PHQ-9 Depression Total Score: 0 11/22/2019 10:49 AM CS T documented as of this encounter Care Teams Crop Scout Relationship Specialty Start Date End Date Kyle Roberts MD PCP - General Family Practice 11/15/19 10/27/[address] [place], [place] [address] Carlota Landeros MD MD Urology 04/10/[address] [place], [place] [address] Michelle Montana, RN Registered Nurse Urology 05/07/17 Anh Costa APRN TRUCK RENTAL MANAGER Nurse Practitioner Nurse Practitioner 10/07 Martinez Galicia MD MD Ophthalmology 04/18/18 420 [place], [place] [phone] Sabino Romano DPM MD Podiatry 08/11/[address] [phone] Mehreen Johnston MD PhD MD Family Practice 11/15/19 909 [place], [place] [phone] documented as of this encounter
--- OUTSIDE RECORDS SUMMARY | 2022-07-30 19:23 | XMS_ITS | Encounter Summary ---
:1945 Author Organization [place] Address [address] [place] [address]. [place] [address] Care Team Providers Name Role Phone Carlota Landeros MD Unavailable Michelle Montana RN Unavailable Anh Costa ESCROW OFFICER FOAM GUN OPERATOR Unavailable Unavailable Martinez Galicia MD Unavailable Sabino Romano DPM Unavailable Kyle Roberts MD Primary Care Provider Mehreen Johnston MD PhD Unavailable [phone] Encounter Details Date Type Department Care Team Description 11/22/2019 Travel Social History Tobacco Use Types Packs/Day [...] Visit Internal Medicine Margot Branham MD [address] [place] [address] (Wo rk) documented as of this encounter Visit Diagnoses Not on filedocumented in this encounter Additional Health Concerns Assessment Noted Time PHQ-9 Depression Total Score: 0 11/22/2019 10:49 AM CS T documented as of this encounter Care Teams Molder Foam Rubber Relationship Specialty Start Date End Date Kyle Roberts MD PCP - General Family Practice 11/15/19 10/27/[address] [place] [address] Carlota Landeros MD MD Urology 04/10/[address] [place] [address] Michelle Montana, MODESTA Registered Nurse Urology 05/07/17 Anh Costa APRN FOAM GUN OPERATOR Nurse Practitioner Nurse Practitioner 10/07 Martinez Galicia MD MD Ophthalmology 04/18/18 [address] [place] [address] Sabino Romano DPM MD Podiatry 08/11/[address] [address] Mehreen Johnston MD PhD MD Family Practice 11/15/19 [address] [place] [address] documented as of this encounter
--- OUTSIDE RECORDS SUMMARY | 2022-07-30 19:24 | XMS_ITS | Encounter Summary ---
:1945 Author Organization [place] Address [address] [place] [address]. [place] [address] Care Team Providers Name Role Phone Lisseth Vang MD Primary Care Provider Carlota Landeros MD Unavailable Lisseth Vang MD Unavailable Michelle Montana RN Unavailable Anh Costa APRN SALES/MARKETING Unavailable Unavailable Martinez Galicia MD Unavailable Sabino Romano DPM Unavailable Encounter Details Date Type Department Care Team Description 04/10/2019 Orders Only [facility] Essential hypertension; [address] [place] [address] Hyperlipidemia, unspecified hyperlipidemia type 1st [place] [address] Social History Tobacco Use Types [...] Visit Internal Medicine LogeaMargot man MD [address] [facility] [address] [place] [address] (Wo rk) documented as of this encounter Procedures Procedure Name Priority Date/Time Associated Diagnosis Comme nts ALBUMIN RANDOM URINE Routine 04/10/2019 10:23 Essential hypertension Results for this QUANTITATIVE AM CDT Hyperlipidemia, procedure ar e in unspecified the results hyperlipidemia type section. LIPID REFLEX TO Routine 04/10/2019 7:55 Essential hypert ension Results for this DIRECT LDL PANEL AM CDT Hyperlipidemia, procedur e are in unspecified the results hyperlipidemia type section. CRP CARDIAC RISK Routine 04/10/2019 7:55 Essential hyper tension Results for this AM CDT Hyperlipidemia, procedure ar e in unspecified the results hyperlipidemia type section. ALT Routine 04/10/2019 7:55 Essential hypertension Re sults for this AM CDT procedure are i n the results section. ALBUMIN LEVEL Routine 04/10/2019 7:55 Essential hypertension R esults for this AM CDT procedure are i n the results section. GLUCOSE Routine 04/10/2019 7:55 Essential hypert ension Results for this AM CDT Hyperlipidemia, procedure ar e in unspecified the results hyperlipidemia type section. documented in this encounter Results Albumin Random Urine Quantitative with Creat Ratio (04/10/2019 10:23 AM CDT) Patholo gist Method Time Signature Creatinine 86 mg/dL 04/10/2019 [facility] Urine 11:02 AM CDT [facility] Albumin Urine <5 mg/L 04/10/2019 [facility] mg/L 11:11 AM CDT [facility] Albumin Urine Unable to 0 - 25 04/10/2019 [facility] mg/g Cr calculate due mg/g Cr 11:11 AM CDT [place] to low value [facility] Specimen Anatomical Collection Method Collection Time Receive d Time (Source) Location / / Volume Laterality Urine specimen 04/10/2019 10:23 9 (specimen) AM CDT 10:28 AM CDT Anh Costa APRN SALES/MARKETING LAB - URINE ORDERABLES Performing Organization Address City/State/ZIP Code Phon e Number [address] [phone] [facility] ALT (04/10/2019 7:55 AM CDT) P athologist Signature ALT 29 0 - 50 U/L 04/10/2019 [facility] 3:38 PM CDT [facility] Specimen Anatomical Collection Method Collection Time Receive d Time (Source) Location / / Volume Laterality 04/10/2019 7:55 AM 9 7:56 CDT AM CDT Anh Costa APRN, CNP LAB - BLOOD ORDERABLES Performing Organization Address City/[facility]/ZIP Code Phon e Number [address] [phone] [facility] Albumin level (04/10/2019 7:55 AM CDT) P athologist Signature Albumin 4.0 3.4 - 5.0 04/10/2019 [facility] g/dL 3:38 PM CDT [facility] Specimen Anatomical Collection Method Collection Time Receive d Time (Source) Location / / Volume Laterality 04/10/2019 7:55 AM 9 7:56 CDT AM CDT Anh Costa APRN, CNP LAB - BLOOD ORDERABLES Performing Organization Address City/[facility]/ZIP Code Phon e Number [address] [address] [facility] Lipid panel reflex to direct LDL Fasting (04/10/2019 7:55 AM CDT) P athologist Signature Cholesterol 132 <200 mg/dL 04/10/2019 [facility] 8:26 AM CDT [facility] Triglycerides 54 <150 mg/dL 04/13/2019 [facility] 10:01 AM CDT [facility] Comment: Fasting specimen Fasting specimen CORRECTED ON 04/13 AT 1001: PREVIOUSLY R EPORTED 54 Non Fasting HDL Cholesterol 78 >49 mg/dL 04/10/2019 8:31 AM CDT [facility] LDL Cholesterol 43 <100 mg/dL 04/13/2019 10:01 AM [facility] Calculated CDT [facility] Comment: Desirable: ? <100 mg/dl CORRECTED ON 04/13 AT 1001: PREVIOUSLY R EPORTED 44 Desirable: ? <100 mg/dl Non HDL Cholesterol 54 <130 mg/dL 04/10/2019 8:31 AM CDT [facility] Specimen Anatomical Collection Method Collection Time Receive d Time (Source) Location / / Volume Laterality Blood specimen 04/10/2019 7:55 AM 019 7:56 (specimen) CDT AM CDT Anh Costa APRN, CNP LAB - BLOOD ORDERABLES Performing Organization Address City/[facility]/ZIP Code Phon e Number [facility] [address] [place] [phone] [facility] CRP cardiac risk (04/10/2019 7:55 AM CDT) P athologist Signature CRP Cardiac 0.9 mg/L 04/10/2019 [facility] Risk 11:51 AM CDT [facility] Comment: Reference Values: Low Risk: ? <1.0 mg/L Average Risk: ? 1.0-3.0 mg/L High Risk: ?>3.0 mg/L Acute Inflammation: >8.0 mg/L Specimen Anatomical Collection Method Collection Time Receive d Time (Source) Location / / Volume Laterality Blood specimen 04/10/2019 7:55 AM 019 7:56 (specimen) CDT AM CDT Anh Costa APRN, CNP LAB - BLOOD ORDERABLES Performing Organization Address City/[facility]/ZIP Code Phon e Number [facility] [address] [place] [address] [facility] Glucose (04/10/2019 7:55 AM CDT) P athologist Signature Glucose 96 70 - 99 04/13/2019 [facility] mg/dL 10:01 AM CDT [facility] Comment: Fasting specimen Fasting specimen CORRECTED ON 04/13 AT 1001: PREVIOUSLY R EPORTED 96 Non Fasting Specimen Anatomical Collection Method Collection Time Receive d Time (Source) Location / / Volume Laterality Blood specimen 04/10/2019 7:55 AM 019 7:56 (specimen) CDT AM CDT Anh Costa APRN, CNP LAB - BLOOD ORDERABLES Performing Organization Address City/[facility]/ZIP Code Phon e Number [facility] [address] [place] [phone] [facility] documented in this encounter Visit Diagnoses Diagnosis Essential hypertension Unspecified essential hypertension Hyperlipidemia, unspecified hyperlipidem ia type documented in this encounter Additional Health Concerns Assessment Noted Time PHQ-9 Depression Total Score: 1 03/30/2018 7:10 AM CDT documented as of this encounter Care Teams Wheel Blocker Relationship Specialty Start Date End Date Lisseth Vang MD PCP - General 04/13/16 11/14/[address] [place], [place] [address] Carlota Landeros MD MD Urology 04/10/[address] [place], [place] [address] Lisseth Vang MD PCP Family Practice 03/30/16 11/14/[address] [place], [place] [address] Michelle Montana, MODESTA Registered Nurse Urology 05/07/17 Anh Costa APRN SALES/MARKETING Nurse Practitioner Nurse Practitioner 10/07 Martinez Galicia MD MD Ophthalmology 04/18/18 [address] [place], [place] [address] Sabino Romano DPM MD Podiatry 08/11/[address] [place] [address] documented as of this encounter
--- OUTSIDE RECORDS SUMMARY | 2022-07-30 19:24 | XMS_ITS | Encounter Summary ---
:1945 Author Organization [facility] Address [address] [place] [address]. [place] [address] Care Team Providers Name Role Phone Lisseth Vang MD Primary Care Provider Carlota Landeros MD Unavailable Lisseth Vang MD Unavailable Michelle Montana RN Unavailable Anh Costa APRN FIELD ACCOUNT MANAGER Unavailable Unavailable Martinez Galicia MD Unavailable Sabino Romano DPM Unavailable Reason for Visit Reason Onset Date Comments Clinic Care Coordination - Follow-up 07/12/2019 Encounter Details Date Type Department Care Team Description 07/12/2019 [facility] Lisy Neff C are [facility] [address] [place] [address] [id number] Social History Tobacco Use Types Packs/Day Years Used Date Smoking Tobacco: Never Smokeless Tobacco: Never Alcohol Use Standard Drinks/Week Comments Yes 0 (1 standard drink = 0.6 oz pure alcoho l) wine few times/wk Sex Assigned at Date Recorded Female 12/20/2018 4:10 PM CDT documented as of this encounter Miscellaneous Notes Telephone Encounter - Lisy Neff GC - 07/12/2019 9:14 AM CDT 07/12/2019 Yamileth returned my call today. She explained that she received a notice from her insurance company that a pre-authorization had not yet been submitted for genetic testing and she may be expected to pay ~$2000 for the test. I explained that I spoke with Mary in for; to (do)'s billing department, who clarified that an official pre-authorization request and any necessary appeals will be submitted by [employer]. We again reviewed [employer]'s pre- verification/billing policy regarding OOP cost estimates and the need for pa tient approval if the estimate is over $100. Yamileth explained that she never received a phone call from [employer] regarding OOP costs. As such, Yamileth is encouraged to contact me if she receives a bill from [employer] that she is uncomfortable paying, as the laboratory may have additional information and/or financial assistance to offer Yamileth. Yamileth was pleased to hear this information and denied having any other questions at this time. Lisy Neff MS, [facility] Licensed Genetic Counselor Office: [phone] Pager: [phone] documented in this encounter Plan of Treatment Upcoming Encounters Date Type Specialty Care Team Description 09/10/2022 Office Visit Internal Medicine Margot Branham MD [address] [place] [phone] (Wo rk) documented as of this encounter Visit Diagnoses Not on filedocumented in this encounter Additional Health Concerns Assessment Noted Time PHQ-9 Depression Total Score: 1 03/30/2018 7:10 AM CDT documented as of this encounter Care Teams Refinisher Relationship Specialty Start Date End Date Lisseth Vang MD PCP - General 04/13/16 11/14/[address] [place], [place] [address] Carlota Landeros MD MD Urology 04/10/[address] [place], [place] [address] Lisseth Vang MD PCP Family Practice 03/30/16 11/14/[address] [address] Michelle Montana, RN Registered Nurse Urology 05/07/17 Anh Costa APRN FIELD ACCOUNT MANAGER Nurse Practitioner Nurse Practitioner 10/07 Martinez Galicia MD MD Ophthalmology 04/18/18 [address] [place] [address] Sabino Romano DPM MD Podiatry 08/11/[address] [place] [phone] documented as of this encounter
--- OUTSIDE RECORDS SUMMARY | 2022-07-30 19:24 | XMS_ITS | Encounter Summary ---
:1945 Author Organization [facility] Address [address] [place] [address]. [place] [address] Care Team Providers Name Role Phone Lisseth Vang MD Primary Care Provider Carlota Landeros MD Unavailable Lisseth Vang MD Unavailable Michelle Montana RN Unavailable Anh Costa APRN OFFICE CLERK ROUTINE Unavailable Unavailable Martinez Galicia MD Unavailable Sabino Romano DPM Unavailable Encounter Details Date Type Department Care Team Description 04/10/2019 Orders Only [facility] Hyperlipidemia, unspecified [address] [place] [address] hyperlipidemia type 1st [place] [address] Social History Tobacco Use Types [...] 09/10/2022 Office Visit Internal Medicine LogeaisMargot MD [address] [place] [address] (Wo rk) documented as of this encounter Results (ABNORMAL) LipoFit by NMR (04/11/2019 8:45 AM CDT) [facility] gist Method Time Signature Total Cholesterol 136 <=199 04/14/2019 [facility] mg/dL 7:17 PM CDT [facility] Triglycerides 65 30 - 149 04/14/2019 [facility] mg/dL 7:17 PM CDT [facility] HDL Cholesterol 75 (H) 40 - 59 04/14/2019 [facility] mg/dL 7:17 PM CDT [facility] LDL Cholesterol 48 <=129 04/14/2019 [facility] mg/dL 7:17 PM T [facility] HDL Size 10.0 >=8.9 nm 04/14/2019 [facility] 7:17 PM CDT [facility] Comment: (Note) INTERPRETIVE INFORMATION: HDL Particle S ize, NMR Percentiles in Reference Population: 25th ? 50th ? 75th 8.6 ?8.9 ?9.3 VLDL Size 52.2 (H) <=46.7 nm 04/14/2019 7:17 PM CDT [facility] Comment: (Note) INTERPRETIVE INFORMATION: VLDL Particle Size, NMR Percentiles in Reference Population: 25th ? 50th ? 75th 44.3 ? 46.7 ? 50.2 LDL Particle Size 21.5 >=20.7 nm 04/14/2019 7:17 PM CDT [facility] Comment: (Note) INTERPRETIVE INFORMATION: LDL Particle S ize, NMR Percentiles in Reference Population: 25th ? 50th ? 75th 19.6 ? 20.7 ? 22.5 Lge HDL Particle 12.3 >=4.2 umol/L 04/14/2019 7:17 PM C DT [facility] Comment: (Note) INTERPRETIVE INFORMATION: Large HDL Part icle Number, NMR Percentiles in Reference Population: 25th ? 50th ? 75th 2.0 ?4.2 ?7.3 HDL Particle 30.2 (L) >=33.0 umol/L 04/14/2019 7:17 PM [facility] Comment: (Note) INTERPRETIVE INFORMATION: HDL Particle N umber, NMR Percentiles in Reference Population: 25th ? 50th ? 75th 29.7 ? 33.0 ? 36.8 Lge VLDL Part <1.5 <=2.7 nmol/L 04/14/2019 7:17 PM [facility] Comment: (Note) INTERPRETIVE INFORMATION: Large VLDL Par ticle Number, NMR Percentiles in Reference Population: 25th ? 50th ? 75th 0.9 ?2.7 ?7.0 Small LDL Particle <165 <=634 nmol/L 04/14/2019 7:17 PM [facility] Comment: (Note) INTERPRETIVE INFORMATION: Small LDL Part icle Number, NMR Percentiles in Reference Population: 25th ? 50th ? 75th 220 ?634 ?949 LDL Particle number 609 <=1,135 nmol/L 04/14/2019 7:17 PM [facility] Comment: (Note) REFERENCE INTERVAL: LDL Particle Number, NMR Low............... Less than 1136 Moderate.......... 1136 - 1449 Borderline High... 1450 - 1764 High.............. 1765 - 2186 Very High......... Greater than 2186 Percentiles in Reference Population: 20th ? 50th ? 80th ? 95th 1136 ? 1450 ? 1765 ?2186 Percentiles consistent with those from N CEP ATP III LDL-C cutpoints of 100 mg/dL(20th percentile) and 160 mg/dL (80th percentile). EER LipoFit by NMR SEE NOTE 04/14/2019 7:17 PM CD T [facility] Comment: (Note) Access [employer] Report using either link below: -Direct access: [email or web address] -Enter Username, Password: [email or web address] Username: [email or web address] Password: [email or web address] INTERPRETIVE INFORMATION: LipoFit by NMR See Compliance Statement B: [place]/ CS Performed by [facility], [address] [place] [id number] [email or web address], Valeriano Rich MD, Lab. Director Specimen Anatomical Collection Method Collection Time Receive d Time (Source) Location / / Volume Laterality Blood specimen 04/11/2019 8:45 AM 019 8:46 (specimen) CDT AM CDT Anh Costa APRN OFFICE CLERK ROUTINE LAB - BLOOD ORDERABLES Performing Organization Address City/State/[facility] Code Phon e Number [address] [address] [facility] documented in this encounter Visit Diagnoses Diagnosis Hyperlipidemia, unspecified hyperlipidem ia type documented in this encounter Additional Health Concerns Assessment Noted Time PHQ-9 Depression Total Score: 1 03/30/2018 7:10 AM CDT documented as of this encounter Care Teams Help Desk Manager Relationship Specialty Start Date End Date Lisseth Vang MD PCP - General 04/13/16 11/14/[address] [place], [place] [phone] Carlota Landeros MD MD Urology 04/10/[address] [place] [address] Lisseth Vang MD PCP Family Practice 03/30/16 11/14/[address] [place], [place] [address] Michelle Montana, RN Registered Nurse Urology 05/07/17 Anh Costa APRN OFFICE CLERK ROUTINE Nurse Practitioner Nurse Practitioner 10/07 Martinez Galicia MD MD Ophthalmology 04/18/18 [address] [place] [address] Sabino Romano DPM MD Podiatry 08/11/[address] [place] [phone] documented as of this encounter
--- OUTSIDE RECORDS SUMMARY | 2022-07-30 19:24 | XMS_ITS | Encounter Summary ---
:1945 Author Organization [place] Address [address] [place] [address]. [place] [address] Care Team Providers Name Role Phone Lisseth Vang MD Primary Care Provider Carlota Landeros MD Unavailable Lisseth Vang MD Unavailable Michelle Montana RN Unavailable Anh Costa APRN BULLET SLUGS INSPECTOR Unavailable Unavailable Martinez Galicia MD Unavailable Sabino Romano DPM Unavailable Reason for Visit Reason Comments Floaters Right Eye Encounter Details Date Type Department Care Team Description 07/24/2019 Office Visit [facility] Eye Ken Rick MD [address] [place] [address] [facility] [place] King Baptiste MD [address] [facility] [address] [place] [address] degeneration, right - Nakul priest (Primary Building Dx) [address] [facility] [address] [place] [address] Social History Tobacco Use Types Packs/Day Years Used Date Smoking Tobacco: Never Smokeless Tobacco: Never Alcohol Use Standard Drinks/Week Comments Yes 0 (1 standard drink = 0.6 oz pure alcoho l) wine few times/wk Sex Assigned at Date Recorded Female 12/20/2018 4:10 PM CDT documented as of this encounter Patient Instructions Patient InstructionsKing Baptiste MD - 07/24/2019 9:30 AM CDT Keep appointment with Dr. Galicia in August. 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 Notes that she's had a black spot or squiggly line in right eye for the past 2 weeks. First noted in the right eye, and then had a few spotsin her left eye as well. No flashes of light noted, just tiny dots. No curtain of vision loss in either eye. Has been doing well since cataract surgery Past Ocular History: - Last eye exam: 08/2018 - Pseudophakia, Fuchs, FELICIA - Eye or eyelid surgery: - CE+IOL each eye 07/2018 (Dr. Galicia) - Eye trauma: None - DM or HTN: None - FHx glaucoma or AMD: none Assessment & Plan 1. Vitreous detachment/degeneration right eye - Onset 2 weeks ago - No tear/detachment on 360 CLUB DIRECTOR each eye - RD/RT precautions discussed - Plan for re-dilated exam with Dr. Galicia as scheduled 08/2019 2. Pseudophakia each eye - BCVA 20/20 each eye - monitor 3. Fuchs corneal dystrophy - Stable guttae - monitor --- Patient disposition: Return for Follow Up - as scheduled . or sooner as needed. King Baptiste MD Ophthalmology Resident PGY-3 Attending Physician Attestation: I did not examine this patient at this encounter, but I was available for discussion. I reviewed the history, examination, any imaging, assessment, and plan as documented. I agree with the plan as detailed by the Treating Resident Physician. Ken Rick MD Uveitis [facility] July 24, 2019 documented in this encounter Nursing Notes Bibi Worley COT - 07/24/2019 9:30 AM CDT Chief Complaints and History of Present Illnesses Patient presents with ??? Floaters Right Eye Chief Complaint(s) and History of Present Illness(es) Floaters Right Eye Laterality: right eye Associated symptoms: Negative for flashes, peripheral vision loss, blurred vision and headache Pain scale: 0/10 Comments She started seeing squiggly lines in her right eye 2 weeks ago. One week ago she started noticing tiny white lights that move in her right eye. Three days ago she noticed a red spot near the temporal corner of her left eye, after she had bee sitting outside. The spot become a bump and then resolved into a red dot. However now both her upper and lower left lids seem mildly swollen. She tells me that there is a dark spot that does not seem to move in the lower periphery of her lefteye. MARISOL Hall 9:51 AM July 24, 2019 documented in this encounter Plan of Treatment Upcoming Encounters Date Type Specialty Care Team Description 09/10/2022 Office Visit Internal Medicine Margot Branham MD [address] [place] [phone] (Wo rk) documented as of this encounter Visit Diagnoses Diagnosis Vitreous degeneration, right - Right Eye - Primary documented in this encounter Additional Health Concerns Assessment Noted Time PHQ-9 Depression Total Score: 1 03/30/2018 7:10 AM CDT documented as of this encounter Care Teams Keno Clerk Relationship Specialty Start Date End Date Lisseth Vang MD PCP - General 04/13/16 11/14/[address] [place] [address] Carlota Landeros MD MD Urology 04/10/[address] [place] [address] Lisseth Vang MD PCP Family Practice 03/30/16 11/14/[address] [place] [address] Michelle Montana, MODESTA Registered Nurse Urology 05/07/17 Anh Costa APRN BULLET SLUGS INSPECTOR Nurse Practitioner Nurse Practitioner 10/07 Martinez Galicia MD MD Ophthalmology 04/18/18 [address] [place] [address] Sabino Romano DPM MD Podiatry 08/11/[address] [place] [phone] documented as of this encounter
--- OUTSIDE RECORDS SUMMARY | 2022-07-30 19:24 | XMS_ITS | Encounter Summary ---
:1945 Author Organization [facility] Address [address] [place] [address]. [place] [address] Care Team Providers Name Role Phone Lisseth Vang MD Primary Care Provider Carlota Landeros MD Unavailable Lisseth Vang MD Unavailable Michelle Montana RN Unavailable Anh Costa APRN WELDING MACHINE OPERATOR GAS Unavailable Unavailable Martinez Galicia MD Unavailable Sabino Romano DPM Unavailable Encounter Details Date Type Department Care Team Description 05/24/2019 Travel Social History Tobacco Use Types Packs/Day [...] Visit Internal Medicine Margot Branham MD [address] [place] [address] (Wo rk) documented as of this encounter Visit Diagnoses Not on filedocumented in this encounter Additional Health Concerns Assessment Noted Time PHQ-9 Depression Total Score: 1 03/30/2018 7:10 AM CDT documented as of this encounter Care Teams Surface Water Technician Relationship Specialty Start Date End Date Lisseth Vang MD PCP - General 04/13/16 11/14/[address] [place] [address] Carlota Landeros MD MD Urology 04/10/[address] [place], [place] [address] Lisseth Vang MD PCP Family Practice 03/30/16 11/14/[address] [place], [place] [id number] Michelle Montana, MODESTA Registered Nurse Urology 05/07/17 Anh Costa APRN WELDING MACHINE OPERATOR GAS Nurse Practitioner Nurse Practitioner 10/07 Martinez Galicia MD MD Ophthalmology 04/18/18 [address] [place] [address] Sabino Romano DPM MD Podiatry 08/11/18 [facility] [address] [address] documented as of this encounter
--- OUTSIDE RECORDS SUMMARY | 2022-07-30 19:24 | XMS_ITS | Encounter Summary ---
:1945 Author Organization [facility] Address [address] [place] [address]. [place] [address] Care Team Providers Name Role Phone Lisseth Vang MD Primary Care Provider Carlota Landeros MD Unavailable Lisseth Vang MD Unavailable Michelle Montana RN Unavailable Anh Costa APRN ADOBE LAYER HELPER Unavailable Unavailable Martinez Galicia MD Unavailable Sabino Romano DPM Unavailable Reason for Visit Reason Comments Medication Refill Encounter Details Date Type Department Care Team Description 06/07/2019 Refill [facility] Damian Villanueva MD Medication Refill Clinic [address] [address] [place] [address] [phone] Social History Tobacco Use Types Packs/Day Years Used Date Smoking Tobacco: Never Smokeless Tobacco: Never Alcohol Use Standard Drinks/Week Comments Yes 0 (1 standard drink = 0.6 oz pure alcoho l) wine few times/wk Sex Assigned at Date Recorded Female 12/20/2018 4:10 PM CDT documented as of this encounter Miscellaneous Notes Telephone Encounter - Priya Martinez RN - 06/13/2019 12:53 PM CDT [facility] 04/10/2019, no medication changes. documented in this encounter Plan of Treatment Upcoming Encounters Date Type Specialty Care Team Description 09/10/2022 Office Visit Internal Medicine Margot Branham MD [address] [id number] (Wo rk) documented as of this encounter Visit Diagnoses Diagnosis Hyperlipidemia LDL goal <100 Other and unspecified hyperlipidemia documented in this encounter Additional Health Concerns Assessment Noted Time PHQ-9 Depression Total Score: 1 03/30/2018 7:10 AM CDT documented as of this encounter Care Teams Emergency Medicine Nurse Practitioner Relationship Specialty Start Date End Date Lisseth Vang MD PCP - General 04/13/16 11/14/[address] [place], [place] [address] Carlota Landeros MD MD Urology 04/10/[address] [place], [place] [address] Lisseth Vang MD PCP Family Practice 03/30/16 11/14/[address] [place], [place] [address] Michelle Montana, MODESTA Registered Nurse Urology 05/07/17 Anh Costa APRN ADOBE LAYER HELPER Nurse Practitioner Nurse Practitioner 10/07 Martinez Galicia MD MD Ophthalmology 04/18/18 [address] [place], [place] [address] Sabino Romano DPM MD Podiatry 08/11/[address] [place] [address] [phone] documented as of this encounter
--- OUTSIDE RECORDS SUMMARY | 2022-07-30 19:24 | XMS_ITS | Encounter Summary ---
:1945 Author Organization [facility] Address [address] [place] [address]. [place] [address] Care Team Providers Name Role Phone Lisseth Vang MD Primary Care Provider Carlota Landeros MD Unavailable Lisseth Vang MD Unavailable Michelle Montana RN Unavailable Anh oCsta APRN PAN WASHER HAND Unavailable Unavailable Martinez Galicia MD Unavailable Sabino Romano DPM Unavailable Reason for Visit Reason Onset Date Comments Clinic Care Coordination - Follow-up 07/12/2019 Encounter Details Date Type Department Care Team Description 07/12/2019 [facility] Lisy Neff C are [facility] mey [place] GC [address] [place] [phone] Social History Tobacco Use Types Packs/Day Years Used Date Smoking Tobacco: Never Smokeless Tobacco: Never Alcohol Use Standard Drinks/Week Comments Yes 0 (1 standard drink = 0.6 oz pure alcoho l) wine few times/wk Sex Assigned at Date Recorded Female 12/20/2018 4:10 PM CDT documented as of this encounter Miscellaneous Notes Telephone Encounter - Lisy Neff GC - 07/12/2019 8:54 AM CDT 07/12/2019 I called Yamileth today to discuss several questions she has about insurance coverage/billing for a genetic test we ordered in April, but was unable to reach her. I left a non-detailed voicemail with my name and phone number. Lisy Neff MS, [facility] Licensed Genetic Counselor Office: [phone] Pager: [phone] documented in this encounter Plan of Treatment Upcoming Encounters Date Type Specialty Care Team Description 09/10/2022 Office Visit Internal Medicine Margot Branham MD [address] [address] (Wo rk) documented as of this encounter Visit Diagnoses Not on filedocumented in this encounter Additional Health Concerns Assessment Noted Time PHQ-9 Depression Total Score: 1 03/30/2018 7:10 AM CDT documented as of this encounter Care Teams Barrel Marker Relationship Specialty Start Date End Date Lisseth Vang MD PCP - General 04/13/16 11/14/[address] [place] [address] Carlota Landeros MD MD Urology 04/10/[address] [place], [place] [address] Lisseth Vang MD PCP Family Practice 03/30/16 11/14/[address] [place], [place] [address] Michelle Montana, MODESTA Registered Nurse Urology 05/07/17 Anh Costa APRN PAN WASHER HAND Nurse Practitioner Nurse Practitioner 10/07 Martinez Galicia MD MD Ophthalmology 04/18/18 [address] [place], [place] [address] Sabino Romano DPM MD Podiatry 08/11/[address] [facility] [address] [address] documented as of this encounter
--- OUTSIDE RECORDS SUMMARY | 2022-07-30 19:24 | XMS_ITS | Encounter Summary ---
:1945 Author Organization [place] Address [address] [place] [address]. [place] [address] Care Team Providers Name Role Phone Lisseth Vang MD Primary Care Provider Carlota Landeros MD Unavailable Lisseth Vang MD Unavailable Michelle Montana RN Unavailable Anh Costa APRN, CNP Unavailable Unavailable Martinez Galicia MD Unavailable Sabino Romano DPM Unavailable Encounter Details Date Type Department Care Team Description 04/04/2019 [facility] Only [facility] for Anh Costa hypertension (Primary Dx); Cardiovascular Disease CLAUDIA Marsh CNP Hyp erlipidemia, unspecified hyperlipidemia type Prevention [address] [place] [address] [address] [place] [address] Social History Tobacco Use Types [...] Office Visit Internal Medicine LogeaisMargot MD 909 [facility] [address]TH [place] [address] (Wo rk) documented as of this encounter Results Albumin Random Urine Quantitative with Creat Ratio (04/10/2019 10:23 AM CDT) Patholo gist Method Time Signature Creatinine 86 mg/dL 04/10/2019 [facility] Urine 11:02 AM CDT [facility] Albumin Urine <5 mg/L 04/10/2019 [facility] mg/L 11:11 AM CDT [facility] Albumin Urine Unable to 0 - 25 04/10/2019 [facility] mg/g Cr calculate due mg/g Cr 11:11 AM CDT [place] to low value [facility] Specimen Anatomical Collection Method Collection Time Receive d Time (Source) Location / / Volume Laterality Urine specimen 04/10/2019 10:23 9 (specimen) AM CDT 10:28 AM CDT Anh Costa APRN, CNP LAB - URINE ORDERABLES Performing Organization Address City/[facility] [place] [address] [facility] Glucose (04/10/2019 7:55 AM CDT) athologist Signature Glucose 96 70 - 99 04/13/2019 [facility] mg/dL 10:01 AM CDT [facility] Comment: Fasting specimen Fasting specimen CORRECTED ON 04/13 AT 1001: PREVIOUSLY R EPORTED 96 Non Fasting Specimen Anatomical Collection Method Collection Time Receive d Time (Source) Location / / Volume Laterality Blood specimen 04/10/2019 7:55 AM 019 7:56 (specimen) CDT AM CDT Anh Costa APRN, CNP LAB - BLOOD ORDERABLES Performing Organization Address City/[facility] Phon e Number [address] [address] [facility] CRP cardiac risk (04/10/2019 7:55 AM CDT) P athologist Signature CRP Cardiac 0.9 mg/L 04/10/2019 [facility] Risk 11:51 AM CDT [facility] Comment: Reference Values: Low Risk: ? <1.0 mg/L Average Risk: ? 1.0-3.0 mg/L High Risk: ?>3.0 mg/L Acute Inflammation: >8.0 mg/L Specimen Anatomical Collection Method Collection Time Receive d Time (Source) Location / / Volume Laterality Blood specimen 04/10/2019 7:55 AM 019 7:56 (specimen) CDT AM CDT Anh Costa APRN, CNP LAB - BLOOD ORDERABLES Performing Organization Address City/State/ZIP Code Phon e Number [facility] [address] [place], [place] [phone] [place] [address] Lipid panel reflex to direct LDL Fasting (04/10/2019 7:55 AM CDT) athologist Signature Cholesterol 132 <200 mg/dL 04/10/2019 [facility] 8:26 AM CDT [facility] Triglycerides 54 <150 mg/dL 04/13/2019 [facility] 10:01 AM CDT [facility] Comment: Fasting specimen Fasting specimen CORRECTED ON 04/13 AT 1001: PREVIOUSLY R EPORTED 54 Non Fasting HDL Cholesterol 78 >49 mg/dL 04/10/2019 8:31 AM CDT [facility] LDL Cholesterol 43 <100 mg/dL 04/13/2019 10:01 AM [facility] Calculated CDT [facility] Comment: Desirable: ? <100 mg/dl CORRECTED ON 04/13 AT 1001: PREVIOUSLY R EPORTED 44 Desirable: ? <100 mg/dl Non HDL Cholesterol 54 <130 mg/dL 04/10/2019 8:31 AM CDT [facility] Specimen Anatomical Collection Method Collection Time Receive d Time (Source) Location / / Volume Laterality Blood specimen 04/10/2019 7:55 AM 019 7:56 (specimen) CDT AM CDT Anh Costa APRN, CNP LAB - BLOOD ORDERABLES Performing Organization Address City/State/ZIP Code Phon e Number [facility] [address] [place] [address] [facility] documented in this encounter Visit Diagnoses Diagnosis Essential hypertension - Primary Unspecified essential hypertension Hyperlipidemia, unspecified hyperlipidem ia type documented in this encounter Additional Health Concerns Assessment Noted Time PHQ-9 Depression Total Score: 1 03/30/2018 7:10 AM CDT documented as of this encounter Care Teams 911 Emergency Services Dispatcher Relationship Specialty Start Date End Date Lisseth Vang MD PCP - General 04/13/16 11/14/[address] [place], [place] [address] Carlota Landeros MD MD Urology 04/10/[address] [place], [place] [address] Lisseth Vang MD PCP Family Practice 03/30/16 11/14/[address] [place], [place] [address] Michelle Montana, MODESTA Registered Nurse Urology 05/07/17 Anh Costa APRN MANAGER LABOR DELIVERY Nurse Practitioner Nurse Practitioner 10/07 Martinez Galicia MD MD Ophthalmology 04/18/18 [address] [place], [place] [address] Sabino Romano DPM MD Podiatry 08/11/[address] [place] [phone] documented as of this encounter
--- OUTSIDE RECORDS SUMMARY | 2022-07-30 19:24 | XMS_ITS | Encounter Summary ---
:1945 Author Organization [facility] Address [address] [place] [address]. [place] [address] Care Team Providers Name Role Phone Lisseth Vang MD Primary Care Provider Carlota Landeros MD Unavailable Lisseth Vang MD Unavailable Michelle Montana RN Unavailable Anh Costa APRN SYRUP MAKER Unavailable Unavailable Martinez Galicia MD Unavailable Sabino Romano DPM Unavailable Encounter Details Date Type Department Care Team Description 08/14/2019 [facility] Only 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 documented in this encounter Additional Health Concerns Assessment Noted Time PHQ-9 Depression Total Score: 1 03/30/2018 7:10 AM CDT documented as of this encounter Care Teams Steeple Jack Relationship Specialty Start Date End Date Lisseth Vang MD PCP - General 04/13/16 11/14/[address] [place], [place] [address] Carlota Landeros MD MD Urology 04/10/[address] [place] [address] Lisseth Vang MD PCP Family Practice 03/30/16 11/14/[address] [place], [place] [address] Michelle Montana, RN Registered Nurse Urology 05/07/17 Anh Costa APRN SYRUP MAKER Nurse Practitioner Nurse Practitioner 10/07 Martinez Galicia MD MD Ophthalmology 04/18/18 [address] [place], [place] [address] Sabino Romano DPM MD Podiatry 08/11/[address] [place] [address] [phone] documented as of this encounter
--- OUTSIDE RECORDS SUMMARY | 2022-07-30 19:24 | XMS_ITS | Encounter Summary ---
:1945 Author Organization [facility] Address [address] [place] [address]. [place] [address] Care Team Providers Name Role Phone Lisseth Vang MD Primary Care Provider Carlota Landeros MD Unavailable Lisseth Vang MD Unavailable Michelle Montana RN Unavailable Anh Costa APRN HEALTH SAFETY ENGINEER Unavailable Unavailable Martinez Galicia MD Unavailable Sabino Romano DPM Unavailable Encounter Details Date Type Department Care Team Description 06/01/2019 Office Visit [facility] Morgan Vang MD [address] [place] [address] Family history of colon cancer (Primary Dx[facility] [address] [place] [address] Family history of uterine cancer; [address] [facility] Family history [place] [address] Social History Tobacco Use Types Packs/Day Years Used Date Smoking Tobacco: Never Smokeless Tobacco: Never Alcohol Use Standard Drinks/Week Comments Yes 0 (1 standard drink = 0.6 oz pure alcoho l) wine few times/wk Sex Assigned at Date Recorded Female 12/20/2018 4:10 PM CDT documented as of this encounter Patient Instructions Patient InstructionsLisy Neff, GC - 06/01/2019 12:30 PM CDT Images from the original note were not included. Negative Genetic Test Result Genetic Testing You had a blood test that looked at the genetic information in one or more genes associated with increased cancer risk. The testing looked for any harmful changes that would stop this particular gene from working like it should. If an individual does not have any harmful changes or variants of unknownsignificance found from their blood test, their genetic test result is reported as negative. Results The genetic test did not identify any pathogenic (harmful) changes in the genes that were tested. There are several possible explanations for a negative test result. Without knowing the gene mutation in your family, the cause of the cancer in you or your relatives is still unknown. Your genetic counselor can help interpret the result for you and your relatives. In this case, there are several reasonsthat may explain the negative test result: ??? There may be a gene mutation in the family that you did not inherit. ??? You may have a gene mutation in a different gene that was not included in the test, or has not yet been discovered. ??? The cancers in you or your family may be due to a combination of genetic factors and environment(multifactorial/familial). ??? The cancers in you or your family may be sporadic/random cancers. ??? There is very small chance that a mutation was not found by current testing methods. As testing technology evolves over time, it may still be possible to identify a mutation in a gene that was not found on this test. It is important to note which genes were included in your test. A list of these genes can be found on your test result. Screening Recommendations Due to this negative test result, cancer screening recommendations should be based on your personal and family history. This may include increased cancer screening for you and/or your family members. Your genetic counselor and health care provider can help make appropriate recommendations. Please call us if you have any questions or concerns. Cancer Risk Management Program [phone] ( ) ? Stephy Ambrosio MS, [facility] [phone] ? Dyllan Worley, MS [phone] ? Gisselle Jensen MS, [facility] [phone] ? Harriet Smyth, MS, [facility] [phone] ? Bradenijeoma Gupta, MS, [facility] [phone] ? Lisy Neff, MS, [facility] [phone] ? Annie Walters, MS, [facility] [phone] documented in this encounter Progress Notes Lisy Neff GC - 06/01/2019 12:30 PM CDT 06/01/2019 Referring Provider: Parul Salmeron APRN CNP Presenting Information: Yamileth Sheikh returned to the Cancer Risk Management Program at the [facility] to discussher genetic testing results. Her blood was drawn on 04/10/2019. BRCA1/2 and Knight Syndrome Analyses with the CancerNext panel was ordered from [facility]. This testing was done because of her family history of colon, uterine, and pancreatic cancer. Genetic Testing Result: NEGATIVE Yamileth is negative for mutations in the APC, BELTRAN, BARD1, BRCA1, BRCA2, BRIP1, BMPR1A, CDH1, CDK4, CDKN2A, CHEK2, DICER1, EPCAM, HOXB13, GREM1, MLH1, MRE11A, MSH2, MSH6, MUTYH, NBN, NF1, PALB2, PMS2, POLD1, POLE, PTEN, RAD50, RAD51C, RAD51D, SMAD4, SMARCA4, STK11, and TP53 genes. No mutations were found in any of the 34 genes analyzed. This test involved sequencing and deletion/duplication analysis of all genes with the exceptions of EPCAM and GREM1 (deletions only). Testing did not detect an identifiable mutation associated with Hereditary Breast and Ovarian Cancersyndrome (BRCA1, BRCA2), Knight syndrome (MLH1, MSH2, MSH6, PMS2, EPCAM), Familial Adenomatous Polyposis (APC), Hereditary Diffuse Gastric Cancer (CDH1), Familial Atypical Multiple Mole Melanoma syndrome (CDK4, CDKN2A), Juvenile Polyposis syndrome (BMPR1A, SMAD4), Chris syndrome (PTEN), Li Fraumeni syndrome (TP53), Peutz-Jeghers syndrome (STK11), MUTYH Associated Polyposis (MUTYH), or Neurofibromatosis type 1 (NF1). A copy of the test report can be found in the Laboratory tab, dated 04/10/2019, and named [facility]. The report is scanned in as a linked document. Interpretation: We discussed several different interpretations of this negative test result. 1. One explanation may be that there is a different gene or combination of genes and environment that are associated with the cancers in this family. If that is the case, additional genetic testing maybe available in the future that can identify a genetic cause for Yamileth's family history. As such, sheis encouraged to contact me regularly to review any new genetic testing options that would be appropriate for her. 2. Another explanation may be that her relatives with cancer, such as her niece with ovarian cancer and/or sister with uterine cancer, does have a mutation in one of these 34 genes and Yamileth did not inherit it. If that is the case, Yamileth would not be expected to carry the same increased risk for cancer that her relatives with the gene mutation would be expected to carry. 3. There is also a small possibility that there is a mutation in one of these genes, and the testinglaboratory could not find it with their current testing methods. Screening: Based on this negative test result, it is important for Yamileth and her relatives to refer back to the family history for appropriate cancer screening. Per current National Comprehensive Cancer Network (NCCN) guidelines, individuals with a first degreerelative with colorectal cancer diagnosed at any age should begin colonoscopy at age 40, or 10 yearsbefore the earliest diagnosis of colorectal cancer, whichever is first. In this family, colonoscopy should start at age 40. Colonoscopy should be repeated every 5 years, or per colonoscopy findings. This would apply to Yamileth and her siblings. Due to Yamileth's family history of uterine and ovarian cancer, Yamileth and her other close female relatives remain at very slightly increased risk for these cancers. We discussed available uterine and ovarian cancer screening (CA-125, pelvic exams, endometrial sampling, transvaginal ultrasounds) as well as the significant limitations of this screening. As such, this screening is not typically recommended. That being said, women in this family should discuss their family history, this screening, and the signs and symptoms of uterine and ovarian cancer with their primary WATER SERVER provider, as they may have in dividualized recommendations. Other population cancer screening options, such as those recommended by the [place] [employer] and NCCN, are also appropriate for Yamileth and her family. These screening recommendations may change ifthere are changes to Yamileth's personal and/or family history of cancer. Final screening recommendations should be made by each individual's managing physician. Inheritance: We reviewed the autosomal dominant inheritance of mutations in these 34 genes. We discussed that Yamileth did not pass on an identifiable mutation in these genes to her son based on this test result. Mutations in these genes do not skip generations. Additional Testing Considerations: Although Yamileth's genetic testing result was negative, other relatives may still carry a gene mutationassociated with hereditary cancer. Genetic counseling is recommended for her sister with uterine cancer, niece with ovarian cancer, and paternal first cousin with early-onset breast cancer to discuss their genetic testing options. Yamileth's other siblings could also consider meeting with a genetic counselor. If any of these relatives do pursue genetic testing, Yamileth is encouraged to contact me so that wemay review the impact of their test results on her. Summary: We do not have an explanation for Yamileth's family history of cancer. Because of that, it is important that she continue with cancer screening based on her personal and family history as discussed above. Genetic testing is rapidly advancing, and new cancer susceptibility genes will most likely be identified in the future. Therefore, I encouraged Yamileth to contact me regularly or if there are changes in her personal or family history. This may change how we assess her cancer risk, screening, and the testing we would offer. Plan: 1. I provided Yamileth with a copy of her test results today and a handout summarizing negative genetic test results (see after visit summary). 2. She plans to follow-up with her medical providers. 3. She should contact me regularly and/or if her family history changes. If Yamileth has any further questions, I encouraged her to contact me at [phone]. Time spent face to face: 15 minutes Lisy Neff MS, [facility] Licensed Genetic Counselor Office: [phone] Pager: [phone] documented in this encounter Plan of Treatment Upcoming Encounters Date Type Specialty Care Team Description 09/10/2022 Office Visit Internal Medicine Margot Branham MD [address] [facility] [address] [place], [place] [id number] (Wo rk) documented as of this encounter Visit Diagnoses Diagnosis Family history of colon cancer - Primary Family history of malignant neoplasm of gastrointestinal tract Family history of uterine cancer Family history of malignant neoplasm of genital organ, other Family history of malignant neoplasm of ovary documented in this encounter Additional Health Concerns Assessment Noted Time PHQ-9 Depression Total Score: 1 03/30/2018 7:10 AM CDT documented as of this encounter Care Teams Substation Operator Helper Generation Relationship Specialty Start Date End Date Lisseth Vang MD PCP - General 04/13/16 11/14/[address] [place], [place] [address] Carlota Landeros MD MD Urology 04/10/[id number] [place], [place] [address] Lisseth Vang MD PCP Family Practice 03/30/16 11/14/[address] [place], [place] [address] Michelle Montana, MODESTA Registered Nurse Urology 05/07/17 Anh Costa APRN HEALTH SAFETY ENGINEER Nurse Practitioner Nurse Practitioner 10/07 Martinez Galicia MD MD Ophthalmology 04/18/18 [address] [place] [address] Sabino Romano DPM MD Podiatry 08/11/[address] [place] [address] [phone] documented as of this encounter
--- OUTSIDE RECORDS SUMMARY | 2022-07-30 19:24 | XMS_ITS | Encounter Summary ---
:1945 Author Organization [facility] Address [address] [place] [address]. [place] [address] Care Team Providers Name Role Phone Lisseth Vang MD Primary Care Provider Carlota Landeros MD Unavailable Lisseth Vang MD Unavailable Michelle Montana RN Unavailable Anh Costa APRN EXCELLENCE COACH Unavailable Unavailable Martinez Galicia MD Unavailable Sabino Romano DPM Unavailable Encounter Details Date Type Department Care Team Description 08/15/2019 Travel Social History Tobacco Use Types Packs/Day [...] Office Visit Internal Medicine Margot Branham MD [address] [place] [address] (Wo rk) documented as of this encounter Visit Diagnoses Not on filedocumented in this encounter Additional Health Concerns Assessment Noted Time PHQ-9 Depression Total Score: 1 03/30/2018 7:10 AM CDT documented as of this encounter Care Teams Chemicals Distiller Relationship Specialty Start Date End Date Lisseth Vang MD PCP - General 04/13/16 11/14/[address] [place] [address] Carlota Landeros MD MD Urology 04/10/[address] [place], [place] [address] Lisseth Vang MD PCP Family Practice 03/30/16 11/14/[address] [place], [place] [phone] Michelle Montana, MODESTA Registered Nurse Urology 05/07/17 Anh Costa APRN EXCELLENCE COACH Nurse Practitioner Nurse Practitioner 10/07 Martinez Galicia MD MD Ophthalmology 04/18/18 [address] [place] [address] Sabino Romano DPM MD Podiatry 08/11/18 [facility] [address] [address] documented as of this encounter
--- OUTSIDE RECORDS SUMMARY | 2022-07-30 19:24 | XMS_ITS | Encounter Summary ---
:1945 Author Organization [facility] Address [address] [place] [address]. [place] [address] Care Team Providers Name Role Phone Lisseth Vang MD Primary Care Provider Carlota Landeros MD Unavailable Lisseth Vang MD Unavailable Michelle Montana RN Unavailable Anh Costa APRN ZIPPER CUTTER Unavailable Unavailable Martinez Galicia MD Unavailable Sabino Romano DPM Unavailable Encounter Details Date Type Department Care Team Description 03/29/2019 Travel Social History Tobacco Use Types Packs/Day [...] Office Visit Internal Medicine Margot Branham MD [address] [place] [address] (Wo rk) documented as of this encounter Visit Diagnoses Not on filedocumented in this encounter Additional Health Concerns Assessment Noted Time PHQ-9 Depression Total Score: 1 03/30/2018 7:10 AM CDT documented as of this encounter Care Teams Credit Associate Relationship Specialty Start Date End Date Lisseth Vang MD PCP - General 04/13/16 11/14/[address] [place] [address] Carlota Landeros MD MD Urology 04/10/[address] [place], [place] [address] Lisseth Vang MD PCP Family Practice 03/30/16 11/14/[address] [place], [place] [phone] Michelle Montana, MODESTA Registered Nurse Urology 05/07/17 Anh Costa APRN ZIPPER CUTTER Nurse Practitioner Nurse Practitioner 10/07 Martinez Galicia MD MD Ophthalmology 04/18/18 [address] [place] [address] Sabino Romano DPM MD Podiatry 08/11/18 [facility] [address] [address] documented as of this encounter
--- OUTSIDE RECORDS SUMMARY | 2022-07-30 19:24 | XMS_ITS | Encounter Summary ---
:1945 Author Organization [facility] Address [address] [place] [address]. [place] [address] Care Team Providers Name Role Phone Lisseth Vang MD Primary Care Provider Carlota Landeros MD Unavailable Lisseth Vang MD Unavailable Michelle Montana RN Unavailable Anh Costa APRN CANDY VENDOR Unavailable Unavailable Martinez Galicia MD Unavailable Sabino Romano DPM Unavailable Encounter Details Date Type Department Care Team Description 07/11/2019 Telephone [facility] Colon and Rectal laura Cooper , Surgery Parul Devlin APRN CANDY VENDOR [address] [place], [place] [address] [place] [phone] Social History Tobacco Use Types Packs/Day Years Used Date Smoking Tobacco: Never Smokeless Tobacco: Never Alcohol Use Standard Drinks/Week Comments Yes 0 (1 standard drink = 0.6 oz pure alcoho l) wine few times/wk Sex Assigned at Date Recorded Female 12/20/2018 4:10 PM CDT documented as of this encounter Miscellaneous Notes Telephone Encounter - Amberly Schroeder RN - 07/27/2019 11:29 AM CDT Received a phone call from [employer] insurance about patient's PA. Advised that this is not actually needed. Telephone Encounter - Priya Nava RN - 07/11/2019 3:16 PM CDT Pt contacted. Asked her to call to obtain PA form for Parul Ayala NP to complete for genetic testing. FAx number provided. Telephone Encounter - Yaakov Miller - 07/11/2019 2:38 PM CDT [facility] Call Center Phone Message May a detailed message be left on voicemail: yes Reason for Call: Other: Patient called she said insurance need preauthorization form filled out eventhou it was done in April. Please explain why procedure was ordered GENE ANAYLYSISplease call to discuss. Action Taken: Other: ump colon rectal surgery documented in this encounter Plan of Treatment Upcoming Encounters Date Type Specialty Care Team Description 09/10/2022 Office Visit Internal Medicine Margot Branham MD [address] [place] [address] (Wo rk) documented as of this encounter Visit Diagnoses Not on filedocumented in this encounter Additional Health Concerns Assessment Noted Time PHQ-9 Depression Total Score: 1 03/30/2018 7:10 AM CDT documented as of this encounter Care Teams Promotions Executive Producer Relationship Specialty Start Date End Date Lisseth Vang MD PCP - General 04/13/16 11/14/[address] [place], [place] [address] Carlota Landeros MD MD Urology 04/10/[address] [place], [place] [address] Lisseth Vang MD PCP Family Practice 03/30/16 11/14/[address] [address] Michelle Montana, RN Registered Nurse Urology 05/07/17 Anh Costa APRN CANDY VENDOR Nurse Practitioner Nurse Practitioner 10/07 Martinez Galicia MD MD Ophthalmology 04/18/18 [address] [place] [address] Sabino Romano DPM MD Podiatry 08/11/[address] [place] [phone] documented as of this encounter
--- OUTSIDE RECORDS SUMMARY | 2022-07-30 19:24 | XMS_ITS | Encounter Summary ---
:1945 Author Organization [facility] Address [address] [place] [address]. [place] [address] Care Team Providers Name Role Phone Lisseth Vang MD Primary Care Provider Carlota Landeros MD Unavailable Lisseth Vang MD Unavailable Michelle Montana RN Unavailable Anh Costa APRN SECTION GANG WORKER Unavailable Unavailable Martinez Galicia MD Unavailable Sabino Romano DPM Unavailable Encounter Details Date Type Department Care Team Description 04/11/2019 Travel Social History Tobacco Use Types Packs/Day [...] Visit Internal Medicine Margot Branham MD [address] [place] [address] (Wo rk) documented as of this encounter Visit Diagnoses Not on filedocumented in this encounter Additional Health Concerns Assessment Noted Time PHQ-9 Depression Total Score: 1 03/30/2018 7:10 AM CDT documented as of this encounter Care Teams Boiler Mechanic Relationship Specialty Start Date End Date Lisseth Vang MD PCP - General 04/13/16 11/14/[address] [place] [address] Carlota Landeros MD MD Urology 04/10/[address] [place], [place] [address] Lisseth Vang MD PCP Family Practice 03/30/16 11/14/[address] [place], [place] [phone] Michelle Montana, MODESTA Registered Nurse Urology 05/07/17 Anh Costa APRN SECTION GANG WORKER Nurse Practitioner Nurse Practitioner 10/07 Martinez Galicia MD MD Ophthalmology 04/18/18 [address] [place] [address] Sabino Romano DPM MD Podiatry 08/11/18 [facility] [address] [address] documented as of this encounter
--- OUTSIDE RECORDS SUMMARY | 2022-07-30 19:24 | XMS_ITS | Encounter Summary ---
:1945 Author Organization [facility] Address [address] [place] [address]. [place] [address] Care Team Providers Name Role Phone Lisseth Vang MD Primary Care Provider Carlota Landeros MD Unavailable Lisseth Vang MD Unavailable Michelle Montana RN Unavailable Anh Costa APRN ANALYTICS LEAD Unavailable Unavailable Martinez Galicia MD Unavailable Sabino Romano DPM Unavailable Encounter Details Date Type Department Care Team Description 07/11/2019 Telephone [facility] Lisy Guillermo, Cancer Clinic [phone] [place] [address] Social History Tobacco Use Types Packs/Day Years Used Date Smoking Tobacco: Never Smokeless Tobacco: Never Alcohol Use Standard Drinks/Week Comments Yes 0 (1 standard drink = 0.6 oz pure alcoho l) wine few times/wk Sex Assigned at Date Recorded Female 12/20/2018 4:10 PM CDT documented as of this encounter Miscellaneous Notes Telephone Encounter - Leslie Mckee - 07/11/2019 2:54 PM CDT April, [facility] [employer] wants PA form filled out. Pt # [id number] [employer] Call [phone] - [employer] Phone number Please call Ramona that this was as the bill over $2,000 documented in this encounter Plan of Treatment Upcoming Encounters Date Type Specialty Care Team Description 09/10/2022 Office Visit Internal Medicine Margot Branham MD [address] [facility] [address] [place], [place] [address] (Wo rk) documented as of this encounter Visit Diagnoses Not on filedocumented in this encounter Additional Health Concerns Assessment Noted Time PHQ-9 Depression Total Score: 1 03/30/2018 7:10 AM CDT documented as of this encounter Care Teams Nicking Machine Operator Relationship Specialty Start Date End Date Lisseth Vang MD PCP - General 04/13/16 11/14/[address] [place], [place] [address] Carlota Landeros MD MD Urology 04/10/[address] [place], [place] [address] Lisseth Vang MD PCP Family Practice 03/30/16 11/14/[address] [place], [place] [phone] Michelle Montana, RN Registered Nurse Urology 05/07/17 Anh Costa APRN ANALYTICS LEAD Nurse Practitioner Nurse Practitioner 10/07 Martinez Galicia MD MD Ophthalmology 04/18/18 [address] [place], [place] [address] Sabino Romano DPM MD Podiatry 08/11/[address] [place] [address] [phone] documented as of this encounter
--- OUTSIDE RECORDS SUMMARY | 2022-07-30 19:24 | XMS_ITS | Encounter Summary ---
:1945 Author Organization [facility] Address [address] [place] [address]. [place] [address] Care Team Providers Name Role Phone Lisseth Vang MD Primary Care Provider Carlota Landeros MD Unavailable Lisseth Vang MD Unavailable Michelle Montana RN Unavailable Anh Costa APRN LOGGING CONTRACTOR Unavailable Unavailable Martinez Galicia MD Unavailable Sabino Romano DPM Unavailable Encounter Details Date Type Department Care Team Description 04/10/2019 Travel Social History Tobacco Use Types Packs/Day [...] Visit Internal Medicine Margot Branham MD [address] [place] [address] (Wo rk) documented as of this encounter Visit Diagnoses Not on filedocumented in this encounter Additional Health Concerns Assessment Noted Time PHQ-9 Depression Total Score: 1 03/30/2018 7:10 AM CDT documented as of this encounter Care Teams Director Of Event Sales Relationship Specialty Start Date End Date Lisseth Vang MD PCP - General 04/13/16 11/14/[address] [place] [address] Carlota Landeros MD MD Urology 04/10/[address] [place], [place] [address] Lisseth Vang MD PCP Family Practice 03/30/16 11/14/[address] [place], [place] [phone] Michelle Montana, MODESTA Registered Nurse Urology 05/07/17 Anh Costa APRN LOGGING CONTRACTOR Nurse Practitioner Nurse Practitioner 10/07 Martinez Galicia MD MD Ophthalmology 04/18/18 [address] [place] [address] Sabino Romano DPM MD Podiatry 08/11/18 [facility] [address] [address] documented as of this encounter
--- OUTSIDE RECORDS SUMMARY | 2022-07-30 19:24 | XMS_ITS | Encounter Summary ---
:1945 Author Organization [facility] Address [address] [place] [address]. [place] [address] Care Team Providers Name Role Phone Lisseth Vang MD Primary Care Provider Carlota Landeros MD Unavailable Lisseth Vang MD Unavailable Michelle Montana RN Unavailable Anh Costa APRN WELDING ENGINEER Unavailable Unavailable Martinez Galicia MD Unavailable Sabino Romano DPM Unavailable Encounter Details Date Type Department Care Team Description 04/11/2019 Orders Only [facility] Hyperlipidemia, unspecified [address] [place] [address] hyperlipidemia type 1st [place] [address] Social History Tobacco Use Types [...] 09/10/2022 Office Visit Internal Medicine LogeaisMargot MD [address] [place] [address] (Wo rk) documented as of this encounter Procedures Procedure Name Priority Date/Time Associated Diagnosis Comme nts LIPOFIT BY NMR Routine 04/11/2019 8:45 AM Hyperlipidemia, Resu lts for this CDT unspecified procedure are i n hyperlipidemia type the resu lts section. documented in this encounter Results (ABNORMAL) LipoFit by NMR (04/11/2019 8:45 AM CDT) [facility] Method Time Signature Total Cholesterol 136 <=199 04/14/2019 [facility] mg/dL 7:17 PM CDT [facility] Triglycerides 65 30 - 149 04/14/2019 [facility] mg/dL 7:17 PM CDT [facility] HDL Cholesterol 75 (H) 40 - 59 04/14/2019 [facility] mg/dL 7:17 PM CDT [facility] LDL Cholesterol 48 <=129 04/14/2019 [place] [facility] mg/dL 7:17 PM T [facility] HDL Size 10.0 >=8.9 nm 04/14/2019 [facility] 7:17 PM CDT [facility] Comment: (Note) INTERPRETIVE INFORMATION: HDL Particle S ize, NMR Percentiles in Reference Population: 25th ? 50th ? 75th 8.6 ?8.9 ?9.3 VLDL Size 52.2 (H) <=46.7 nm 04/14/2019 7:17 PM CDT [facility] Comment: (Note) INTERPRETIVE INFORMATION: VLDL Particle Size, NMR Percentiles in Reference Population: 25th ? 50th ? 75th 44.3 ? 46.7 ? 50.2 LDL Particle Size 21.5 >=20.7 nm 04/14/2019 7:17 PM CDT [facility] Comment: (Note) INTERPRETIVE INFORMATION: LDL Particle S ize, NMR Percentiles in Reference Population: 25th ? 50th ? 75th 19.6 ? 20.7 ? 22.5 Lge HDL Particle 12.3 >=4.2 umol/L 04/14/2019 7:17 PM C DT [facility] Comment: (Note) INTERPRETIVE INFORMATION: Large HDL Part icle Number, NMR Percentiles in Reference Population: 25th ? 50th ? 75th 2.0 ?4.2 ?7.3 HDL Particle 30.2 (L) >=33.0 umol/L 04/14/2019 7:17 PM [facility] Comment: (Note) INTERPRETIVE INFORMATION: HDL Particle N umber, NMR Percentiles in Reference Population: 25th ? 50th ? 75th 29.7 ? 33.0 ? 36.8 Lge VLDL Part <1.5 <=2.7 nmol/L 04/14/2019 7:[address] [facility] Comment: (Note) INTERPRETIVE INFORMATION: Large VLDL Par ticle Number, NMR Percentiles in Reference Population: 25th ? 50th ? 75th 0.9 ?2.7 ?7.0 Small LDL Particle <165 <=634 nmol/L 04/14/2019 7:[address] [facility] Comment: (Note) INTERPRETIVE INFORMATION: Small LDL Part icle Number, NMR Percentiles in Reference Population: 25th ? 50th ? 75th 220 ?634 ?949 LDL Particle number 609 <=1,135 nmol/L 04/14/2019 7:17 PM [facility] Comment: (Note) REFERENCE INTERVAL: LDL Particle [...] SEE NOTE 04/14/2019 7:17 PM CD T [facility] Comment: (Note) Access Textbroker Report using either link below: -Direct access: [email or web address] -Enter Username, Password: [email or web address] Username: [email or web address] Password: [email or web address] INTERPRETIVE INFORMATION: LipoFit by NMR See Compliance Statement B: [employer]/ CS Performed by [facility], [address] [place] [address] [email or web address], Valeriano Rich MD, Lab. Director Specimen Anatomical Collection Method Collection Time Receive d Time (Source) Location / / Volume Laterality Blood specimen 04/11/2019 8:45 AM 019 8:46 (specimen) CDT AM CDT Anh Costa APRN WELDING ENGINEER LAB - BLOOD ORDERABLES Performing Organization Address City/State/ZIP Code Phon e Number [address] [address] [facility] documented in this encounter Visit Diagnoses Diagnosis Hyperlipidemia, unspecified hyperlipidem ia type documented in this encounter Additional Health Concerns Assessment Noted Time PHQ-9 Depression Total Score: 1 03/30/2018 7:10 AM CDT documented as of this encounter Care Teams Relief Salesperson Relationship Specialty Start Date End Date Lisseth Vang MD PCP - General 04/13/16 11/14/[address] [place] [address] Carlota Landeros MD MD Urology 04/10/[address] [place], [place] [address] Lisseth Vang MD PCP Family Practice 03/30/16 11/14/19 [facility] [address] [address] Michelle Montana, MODESTA Registered Nurse Urology 05/07/17 Anh Costa APRN WELDING ENGINEER Nurse Practitioner Nurse Practitioner 10/07 Martinez Galicia MD MD Ophthalmology 04/18/18 [address] [place] [address] Sabino Romano DPM MD Podiatry 08/11/[address] [place] [phone] documented as of this encounter
--- OUTSIDE RECORDS SUMMARY | 2022-07-30 19:24 | XMS_ITS | Encounter Summary ---
:1945 Author Organization [facility] Address [address] [place] [address]. [place] [address] Care Team Providers Name Role Phone Lisseth Vang MD Primary Care Provider Carlota Landeros MD Unavailable Lisseth Vang MD Unavailable Michelle Montana RN Unavailable Anh Costa APRN STEM LEAD FORMER Unavailable Unavailable Martinez Galicia MD Unavailable Sabino Romano DPM Unavailable Reason for Visit Reason Comments Medication Refill estradiol (ESTRACE VAGINAL) 0.1 MG/GM Encounter Details Date Type Department Care Team Description 07/03/2019 Refill [facility] Urology and Dee Landeros MD Medication Refill Inst for Prostate and [id number] (estradiol (ESTRACE [facility] 100 VAGINAL) 0.1 MG/GM ) [address] [place], [place] [phone] [place] [address] [place] [address] Social History Tobacco Use Types Packs/Day Years Used Date Smoking Tobacco: Never Smokeless Tobacco: Never Alcohol Use Standard Drinks/Week Comments Yes 0 (1 standard drink = 0.6 oz pure alcoho l) wine few times/wk Sex Assigned at Date Recorded Female 12/20/2018 4:10 PM CDT documented as of this encounter Miscellaneous Notes Telephone Encounter - Leah Harvey CMA - 07/06/2019 9:12 AM CDT Message sent with Estrace refill request stating for the patient to call to schedule an appointment with Dr. Carlota Landeros or the PA/STEM LEAD FORMER in the Urology clinic to receive additional refills. Leah Harvey MA Telephone Encounter - Sydnie Granger RN - 07/05/2019 5:07 PM CDT estradiol (ESTRACE VAGINAL) 0.1 MG/GM Last Written Prescription Date: 01/12/18 Last Fill Quantity: 30 G , # refills: 12 Last Office Visit : 08/11/17 Future Office visit: NONE Routing refill request to provider for review/approval because: 30 DAY RF PENDING > 18 MOS RTC APPT. 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 Vitamin D deficiency Unspecified vitamin D deficiency documented in this encounter Additional Health Concerns Assessment Noted Time PHQ-9 Depression Total Score: 1 03/30/2018 7:10 AM CDT documented as of this encounter Care Teams Automobile Body Repair Supervisor Relationship Specialty Start Date End Date Lisseth Vang MD PCP - General 04/13/16 11/14/[address] [place], [place] [address] Carlota Landeros MD MD Urology 04/10/[address] [place], [place] [address] Lisseth Vang MD PCP Family Practice 03/30/16 11/14/[address] [place] [address] Michelle Montana, RN Registered Nurse Urology 05/07/17 Anh Costa APRN STEM LEAD FORMER Nurse Practitioner Nurse Practitioner 10/07 Martinez Galicia MD MD Ophthalmology 04/18/18 [address] [place] [address] Sabino Romano DPM MD Podiatry 08/11/[address] [address] documented as of this encounter
--- OUTSIDE RECORDS SUMMARY | 2022-07-30 19:24 | XMS_ITS | Encounter Summary ---
:1945 Author Organization [facility] Address [address] [place] [address]. [place] [address] Care Team Providers Name Role Phone Lisseth Vang MD Primary Care Provider Carlota Landeros MD Unavailable Lisseth Vang MD Unavailable Michelle Montana RN Unavailable Anh Costa APRN FREELANCE DATA ENTRY Unavailable Unavailable Martinez Galicia MD Unavailable Sabino Romano DPM Unavailable Kyle Roberts MD Primary Care Provider Mehreen Johnston MD PhD Unavailable [phone] LogeaMargot man MD Unavailable Martinez Galicia MD Unavailable LogMargot sadler MD Unavailable LogMargot sadler MD Primary Care Provider Levy Hussein MD Unavailable Alonso Tejeda MD Unavailable Reason for Visit Reason Onset Date Comments Symptoms 07/19/2019 New black spot in ri ght eye Encounter Details Date Type Department Care Team Description 07/19/2019 [facility] Eye Martinez Galicia oms ([facility] Latoya Pearson MD spot in right eye) Mota Wangensteen [address] [id number] [facility] [address] [facility] [address] [place] [address] Social History Tobacco Use Types Packs/Day Years Used Date Smoking Tobacco: Never Smokeless Tobacco: Never Alcohol Use Standard Drinks/Week Comments Yes 0 (1 standard drink = 0.6 oz pure alcoho l) wine few times/wk Sex Assigned at Date Recorded Female 12/20/2018 4:10 PM CDT documented as of this encounter Miscellaneous Notes Telephone Encounter - Corrie Delgado - 07/19/2019 11:12 AM CDT [facility] Phone Message May a detailed message be left on voicemail: yes Reason for Call: Symptoms or Concerns If patient has red-flag symptoms, warm transfer to triage line Current symptom or concern: Black spot in right eye Symptoms have been present for: Approx 2 week(s) Has patient previously been seen for this? No By: Dr. Galicia Date: Last seen 08/09/2018 Are there any new or worsening symptoms? Yes: Pt notes she has had a right black spot or squiggly line in her right eye. She also notes occasionally there is a small black line in her left eye. She notes nothing is flashing, but when she looks around the lines seem to float around. She is wanting toknow if she should be seen sooner; her appt with Dr. Galicia is on 08/15. Please advise. Action Taken: Message routed to: [facility] Ophthalmology documented in this encounter Plan of Treatment Upcoming Encounters Date Type Specialty Care Team Description 09/10/2022 Office Visit Internal Medicine Margot Branham MD [address] [facility] [address] [place] [address] (Wo rk) documented as of this encounter Visit Diagnoses Not on filedocumented in this encounter Additional Health Concerns Assessment Noted Time PHQ-9 Depression Total Score: 1 03/30/2018 7:10 AM CDT documented as of this encounter Care Teams Harness Builder Relationship Specialty Start Date End Date Lisseth Vang, PCP - General 04/13/16 11/14/[address] [place] [address] Kyle Roberts MD PCP - General Family Practice 11/15/19 10/27/[address] [place] [address] Margot Branham MD PCP - General Internal Medicine 10/28/[address] [place] [address] Carlota Landeros MD MD Urology 04/10/[address] [place] [address] Lisseth Vang, JAMAR Family Practice 03/30/[address] [place] [address] Michelle Montana, MODESTA Registered Nurse Urology 05/07/17 Anh Costa APRN Nurse Practitioner Nurse Practitioner 10/07/17 Martinez Hernandez MD Ophthalmology 04/18/[address] [place] [address] Sabino Romano DPM MD Podiatry 08/11/[address] [address] Mehreen Johnston MD Family Practice 11/15/[address] [place] [address] Margot Branham MD MD Internal Medicine 04/17/[address] [place] [phone] Martinez Galicia, Assigned Surgical 07/26/20 MD Provider [address] [place] [phone] Margot Branham MD Assigned PCP 09/15/[address] [place] [phone] Levy Hussein MD Assigned Surgical 03/23/21 06/14/[address] [place] [address] Provider [place], [place] [address] Alonso Tejeda MD MD Internal Medicine 06/19/[address] [place] [phone] documented as of this encounter
--- OUTSIDE RECORDS SUMMARY | 2022-07-30 19:24 | XMS_ITS | Encounter Summary ---
:1945 Author Organization [facility] Address [address] [place] [address]. [place] [address] Care Team Providers Name Role Phone Lisseth Vang MD Primary Care Provider Carlota Landeros MD Unavailable Lisseth Vang MD Unavailable Michelle Montana RN Unavailable Anh Costa APRN ASSISTANT FOOTBALL COACH Unavailable Unavailable Martinez Galicia MD Unavailable Sabino Romano DPM Unavailable Encounter Details Date Type Department Care Team Description 04/05/2019 Therapy Visit [facility] Saira Urinar y retention (Primary Dx); [facility], Nitin reeves, PT Urinary urgency; Petty JAN PETTY Mixed stress and urge urinary incontinen [address] [facility] [address] [facility] [address] [place] [address] [place] [address] [phone] Social History Tobacco Use Types Packs/Day Years Used Date Smoking Tobacco: Never Smokeless Tobacco: Never Alcohol Use Standard Drinks/Week Comments Yes 0 (1 standard drink = 0.6 oz pure alcoho l) wine few times/wk Sex Assigned at Date Recorded Female 12/20/2018 4:10 PM CDT documented as of this encounter Progress Notes Nicolle Brandon, PT - 04/05/2019 1:55 PM CDT Discharge Note Progress reporting period is from initial evaluation date (please see noted date below) to Apr 05, 2019. No linked episodes Yamileth failed to follow up and current status is unknown. Please see information below for last relevant information on current status. Patient seen for 6 visits. SUBJECTIVE Subjective changes noted by patient: Have not had any leaking of urine since our last visit. Stretching exercise going well and that she took a Ti Chi class, which was helpful. Patient states that overall she has learned so much about her pelvic floor, stretching, relaxation, breathing, bladder irritants and gentle PF contraction to help her avoid leaking . . Current pain level is 0/10. Previous pain level was 0/10. Changes in function: Yes (See Goal flowsheet attached for changes in current functional level) Adverse reaction to treatment or activity: None OBJECTIVE Changes noted in objective findings: Psoas/ilicus MFR minimal. Patient demonstrated independence in HEP and is prepared for DC with no more symptoms of leaking. ASSESSMENT/PLAN Diagnosis: Mixed incontinence Updated problem list and treatment plan: Decreased function - HEP Impaired muscle performance - HEP STG/LTGs have been met or progress has been made towards goals: Yes, please see goal flowsheet for most current information Assessment of Progress: current status is unknown. Last current status: Pt is progressing well Self Management Plans: HEP I have re-evaluated this patient and find that the nature, scope, duration and intensity of the therapy is appropriate for the medical condition of the patient. Yamileth continues to require the following intervention to meet STG and LTG's: HEP. Recommendations: Discharge with current home program. Patient to follow up with MD as needed. Please refer to the daily flowsheet for treatment today, total treatment time and time spent performing 1:1 timed codes. documented in this encounter Plan of Treatment Upcoming Encounters Date Type Specialty Care Team Description 09/10/2022 Office Visit Internal Medicine LogeaisMargot MD [address] [address] (Wo rk) documented as of this encounter Procedures Procedure Name Priority Date/Time Associated Diagnosis Comme nts ZZC MANUAL THER Routine 04/05/2019 2:37 PM Urinary reten tion TECH,1+REGIONS,EA 15 MIN CDT Urinary urgency Mixed stress and urge urinary incontinence Z THERAPEUTIC Routine 04/05/2019 2:37 PM Urinary reten tion ACTIVITIES CDT Urinary urgency Mixed stress and urge urinary incontinence Z NEUROMUSCULAR Routine 04/05/2019 2:37 PM Urinary ret ention RE-EDUCATION CDT Urinary urgency Mixed stress and urge urinary incontinence documented in this encounter Visit Diagnoses Diagnosis Urinary retention - Primary Retention of urine, unspecified Urinary urgency Urgency of urination Mixed stress and urge urinary incontinen ce Mixed incontinence urge and stress (male )(female) documented in this encounter Additional Health Concerns Assessment Noted Time PHQ-9 Depression Total Score: 1 03/30/2018 7:10 AM CDT documented as of this encounter Care Teams Senior Net Software Developer Relationship Specialty Start Date End Date Lisseth Vang MD PCP - General 04/13/16 11/14/[address] [place], [place] [phone] Carlota Landeros MD MD Urology 04/10/[address] [place], [place] [phone] Lisseth Vang MD PCP Family Practice 03/30/16 11/14/[address] [place], [place] [address] Michelle Montana, MODESTA Registered Nurse Urology 05/07/17 Anh Costa APRN ASSISTANT FOOTBALL COACH Nurse Practitioner Nurse Practitioner 10/07 Martinez Galicia MD MD Ophthalmology 04/18/[address] [place], [place] [address] Sabino Romano DPM MD Podiatry 08/11/[address] [place] [phone] documented as of this encounter
--- OUTSIDE RECORDS SUMMARY | 2022-07-30 19:24 | XMS_ITS | Encounter Summary ---
:1945 Author Organization [place] Address [address] [place] [address] Care Team Providers Name Role Phone Lisseth Vang MD Primary Care Provider Carlota Landeros MD Unavailable Lisseth Vang MD Unavailable Michelle Montana RN Unavailable Anh Costa APRN FISH PEDDLER Unavailable Unavailable Martinez Galicia MD Unavailable Sabino Romano DPM Unavailable Reason for Visit Reason Comments Medication Refill Encounter Details Date Type Department Care Team Description 06/09/2019 Refill [facility] Sabino Romano DPM Medication Refill [address] [phone] (Wo rk) Social History Tobacco Use Types [...] Office Visit Internal Medicine LogeaisMargot MD [address] [address] (Wo rk) documented as of this encounter Visit Diagnoses Diagnosis Dermatophytosis of nail documented in this encounter Additional Health Concerns Assessment Noted Time PHQ-9 Depression Total Score: 1 03/30/2018 7:10 AM CDT documented as of this encounter Care Teams Circulation Assistant Relationship Specialty Start Date End Date Lisseth Vang MD PCP - General 04/13/16 11/14/[address] [place], [place] [address] Carlota Landeros MD MD Urology 04/10/[address] [place], [place] [address] Lisseth Vang MD PCP Family Practice 03/30/16 11/14/[address] [place], [place] [address] Michelle Montana, MODESTA Registered Nurse Urology 05/07/17 Anh Costa APRN FISH PEDDLER Nurse Practitioner Nurse Practitioner 10/07 Martinez Galicia MD MD Ophthalmology 04/18/18 [address] [place] [address] Sabino Romano DPM MD Podiatry 08/11/[address] [place] [phone] documented as of this encounter
--- OUTSIDE RECORDS SUMMARY | 2022-07-30 19:24 | XMS_ITS | Encounter Summary ---
:1945 Author Organization [facility] Address [address] [place] [address]. [place] [address] Care Team Providers Name Role Phone Lisseth Vang MD Primary Care Provider Carlota Landeros MD Unavailable Lisseth Vang MD Unavailable Michelle Montana RN Unavailable Anh Costa APRN HEART SURGEON Unavailable Unavailable Martinez Galicia MD Unavailable Sabino Romano DPM Unavailable Reason for Visit Reason Comments Blood Draw Labs drawn via NOUGAT CUTTER MACHINE by RN in l ab. Lab only appt. Consultation - Closed Specialty Diagnoses / Procedures Referred By Contact Refer red To Contact Diagnoses Family history of colon cancer Parul Salmeron APRN HEART SURGEON [address] [address] Referral ID Status Reason Start Date Expiration Date Visits Requ ested Visits Authorized [id number] Closed 12/08/2018 12/08/2019 1 1 Encounter Details Date Type Department Care Team Description 04/10/[address] [facility] Parul Browning APRN HEART SURGEON [address] [facility] [address] [id number] Family history of colon cancer (Primary Dx); [facility], [address] [place] [address] Family history of malignant neoplasm of ovary; [facility] [place] [address] Social History Tobacco Use Types Packs/Day Years Used Date Smoking Tobacco: Never Smokeless Tobacco: Never Alcohol Use Standard Drinks/Week Comments Yes 0 (1 standard drink = 0.6 oz pure alcoho l) wine few times/wk Sex Assigned at Date Recorded Female 12/20/2018 4:10 PM CDT documented as of this encounter Patient Instructions Patient InstructionsTawanda Lisy Isabelle, - 04/10/2019 9:00 AM CDT Images from the original note were not included. Assessing Cancer Risk Only about 5-10% of cancers are thought to be due to an inherited cancer susceptibility gene. These families often have: ? Several people with the same or related types of cancer ? Cancers diagnosed at a young age (before age 50) ? Individuals with more than one primary cancer ? Multiple generations of the family affected with cancer Comprehensive Colon Cancer Panel We each inherit two copies of every gene in our bodies: one from our mother, and one from our father. Each gene has a specific job to do. When a gene has a mistake or ???mutation?? in it, it does not work like it should. This handout will review common hereditary colon cancer syndromes, and other genes related to an increased risk for colon cancer. The genes that will be discussed in this handout are: APC, BMPR1A, CDH1, CHEK2, EPCAM, GREM1, MLH1, MSH2, MSH6, MUTYH, PMS2, POLD1, POLE, PTEN, SMAD4, STK11, and TP53. These genes are clinically actionable, meaning there are published guidelines for cancer screening and management for individuals who are found to carry mutations in these genes. Inheriting a mutation does not mean a person will develop cancer, but it does significantly increase his or her risk above the general population risk. Familial Adenomatous Polyposis (FAP) FAP is a hereditary cancer syndrome caused by mutations in the APC gene. The condition is known to cause hundreds to thousands of adenomatous polyps in the colon, creating a ???carpet?? of polyps. Some individuals have what is called attenuated FAP (AFAP), a milder form of FAP with fewer polyps and typically later onset. Individuals with an APC gene mutation are at an increased risk for colon, thyroid, and duodenal cancers, as well as several other types of cancer1. Other features of this conditionmay include: osteomas, dental anomalies, benign skin lesions, CHRPE (???freckle?? on the inside of the eye), and desmoid tumors. Lifetime Cancer Risks Cancer Type General Population FAP Colon 5% near 100% Thyroid (papillary) 1% 1-12% Duodenal <1% 5% Liver <1% 1-2% before age 5 Pancreas <1% 1% Stomach <1% 1% Juvenile Polyposis Syndrome (JPS) JPS is characterized by hamartomatous polyps, called juvenile polyps, in the gastrointestinal tract.???Juvenile?? refers to the type of polyps seen in this hereditary cancer condition, not the age ofonset. Currently, mutations in two genes are known to cause JPS: BMPR1A and SMAD4. Of individuals clinically diagnosed with JPS, only 40% have an identifiable mutation in one of these genes, suggestingthere are other genes that cause JPS that have not been discovered yet. Individuals with JPS are at an increased risk for colon cancer and stomach cancer 2,3,4. Pancreatic and small bowel cancers have also been reported in JPS, but the actual risks are unknown. Lifetime Cancer Risks Cancer Type General Population JPS Colon 5% 40-50% Gastric/Duodenal <1% 10-21% Some individuals with SMAD4 mutations have a condition called JPS/HHT (Juvenile Polyposis/HereditaryHemorrhagic Telangiectasia) where in addition to JPS, individuals may have nose bleeds and clotting issues. Hereditary Diffuse Gastric Cancer (HDGC) Currently, mutations in one gene are known to cause Hereditary Diffuse Gastric Cancer: CDH1. Individuals with HDGC are at increased risk for diffuse gastric cancer and lobular breast cancer. Of people diagnosed with HDGC, 30-50% have a mutation in the CDH1 gene. This suggests there are likely mutations in other genes that may cause HDGC that have not been identified yet. Individuals with HDGC may also be at increased risk for colon cancer. Lifetime Cancer Risks Cancer Type General Population HDGC Diffuse Gastric <1% 67-83% Breast 12% 39-52% Knight syndrome Mutations in five different genes are known to cause Knight syndrome: MLH1, MSH2, MSH6, PMS2, and EPCAM. Individuals with Knight syndrome have an increased risk for colon, uterine, ovarian, small bowel, stomach, urinary tract, and brain cancer, as well as several other types of cancer. The exact lifetime cancer risks are dependent upon the gene in which the mutation was identified. Lifetime Cancer Risks Cancer Type General Population Knight syndrome Colon 5% 10-80% Uterine 2-3% 15-60% Stomach <1% 6-13% Ovarian 2% 4-24% Urinary tract <1% 1-7% Hepatobiliary tract <1% 1-4% Small bowel <1% 3-6% Brain/MASTER YACHT <1% 1-3% Pancreas <1% 1-6% MUTYH-Associated Polyposis (MAP) MAP is a hereditary cancer syndrome caused by mutations in the MUTYH gene. Unlike the other hereditary cancer genes discussed in this handout, two mutations in the MUTYH gene cause MAP and increase cancer risk. Those affected with MAP typically have between 10-100 adenomatous polyps. This syndrome also increases the risk for colon and duodenal cancer. Current research suggests that other cancers may be associated with MUTYH mutations, as well. The table below includes the risk that someone with two MUTYH gene mutations would develop cancer in their lifetime; of note, there is also an increased colon cancer risk for individuals who carry only one MUTYH gene mutation5,6,7. Lifetime Cancer Risks Cancer Type General Population MAP Colon 5% 50-100% Duodenal <1% 5% Milton syndrome Chris syndrome is a hereditary condition that increases the risk for breast, thyroid, endometrial, colon, and kidney cancer. A single mutation in the PTEN gene causes Milton syndrome and increases cancer risk. The table below shows the chance that someone with a PTEN mutation would develop cancer in their lifetime8,9. Other benign features seen in some individuals with Milton syndrome include benignskin lesions (facial papules, keratoses, lipomas), learning disabilities, autism, thyroid nodules, hamartomatous colon polyps, and larger head size. Lifetime Cancer Risks Cancer Type General Population Chris Syndrome Breast 12% 25-50%* Thyroid 1% 35% Renal 1-2% 35% Endometrial 2-3% 28% Colon 5% 9% Melanoma 2-3% >5% *One recent study found breast cancer risk to be increased to 85% Peutz-Jeghers syndrome (PJS) PJS is a hereditary cancer syndrome caused by mutations in the STK11 gene. This condition can be distinguished from other hereditary syndromes by the presence of hamartomatous polyps in the gastrointestinal tract and freckles present in unusual places such as the hands, feet, neck, and lips. Individuals with Peutz- Jeghers syndrome have an increased risk for colon, breast, pancreatic, and other cancers3. Men are at risk for testicular tumors which can affect hormones in the body. Women are at risk for sex cord tumors of the ovaries and a rare aggressive type of cervical cancer. Lifetime Cancer Risks Cancer Type General Population PJS Breast 12% 45-50% Colon 5% 39% Stomach <1% 29% Pancreas 1.5% 11-36% Small Intestine <1% 13% Ovarian 2% 18% Lung 6-7% 15-17% Additional Genes Associated with Increased Colon Cancer Risk CHEK2 CHEK2 is a moderate-risk breast cancer gene. Women who have a mutation in CHEK2 have around a 2-foldincreased risk for breast cancer compared to the general population, and this risk may be higher depending upon family history.12,13,14. Mutations in CHEK2 have also been shown to increase the risk of a number of other cancers, including colon and prostate, however these cancer risks are currently notwell understood. GREM1 GREM1 is a moderate-risk colon polyposis gene. Duplications of this gene are more commonly found in individuals with Ashkenazi Mosque [id number]. Mutations in GREM1 are associated with colon polyps andtherefore an increased risk of colon cancer; however the estimated cancer risk is not well [id number]. POLD1 and POLE POLD1 and POLE are moderate-risk colon cancer genes. Carriers of a mutation in one of these genes increases the lifetime risk of colorectal [id number],18,19,20. Mutations in these genes may also be associated with increased risk for other cancers including: endometrial cancer, duodenal adenomas and carcinomas, and brain tumors. TP53 Li Fraumeni syndrome (LFS) is a hereditary cancer predisposition syndrome. LFS is caused by a mutation in the TP53 gene. A single mutation in one of the copies of TP53 increases the risk for multiple cancers. Individuals with LFS are at an increased risk for developing cancer at a young age. The general lifetime risk for development of cancer is 50% by age 30 and 90% by age 60. Core Cancers: Sarcomas, Breast, Brain, Lung, Leukemias/Lymphomas, Adrenocortical carcinomas Other Cancers: Gastrointestinal, Thyroid, Skin, Genitourinary Genetic Testing Genetic testing involves a simple blood test and will look at the genetic information in genes associated with an increased risk of colon cancer. The tests look for any harmful mutations that are associated with increased cancer risk. If possible, it is recommended that the person(s) who has had cancer be tested before other family members. That person will give us the most useful information about whether or not a specific gene mutation is associated with the cancer in the family. Results There are three possible results from genetic testing: ? Positive--a harmful mutation was identified ? Negative--no mutation was identified ? Variant of unknown significance--a variation in one of the genes was identified, but it is unclearhow this impacts cancer risk in the family Advantages and Disadvantages There are advantages and disadvantages to genetic testing of these genes. Advantages ? May clarify your cancer risk ? Can help you make medical decisions ? May explain the cancers in your family ? May give useful information to your family members (if you share your results) Disadvantages ? Possible negative emotional impact of learning about inherited cancer risk ? Uncertainty in interpreting a negative test result in some situations ? Possible genetic discrimination concerns (see below) Inheritance Most mutations in the genes outlined above are inherited in an autosomal dominant pattern. This means that if a parent has a mutation, each of his or her children will have a 50% chance of inheriting that same mutation. Therefore, each child--male or female--would have a 50% chance of being at increased risk for developing cancer. Image obtained from [employer], 2013 In the case of MUTYH-Associated Polyposis (MAP) this hereditary cancer syndrome is inherited in an autosomal recessive pattern. This means that each parent of an individual with MAP is a carrier of MAP, meaning that they have only one mutation in MUTYH. They still have one functioning copy of their gene. Carriers are at a slightly higher risk for colon cancer than the general population. If each parent is a carrier for MAP, they have a 25% of having a child who is affected with MAP, meaning the child inherited both gene mutations - one from each parent. Image obtained from [employer], 2016 Genetic Information Nondiscrimination Act (RIYA) RIYA is a federal law that protects individuals from health insurance or employment discrimination based on a genetic test result alone. Although rare, there are currently no legal protections in termsof life insurance, long term care phlebotomist care, or disability insurances. Visit the National Human Genome Research [place] at Genome.gov/92853410 to learn more. Reducing Cancer Risk Each of the genes listed within this handout have nationally recognized cancer screening guidelines that would be recommended for individuals who test positive. In addition to increased cancer screening, surgeries may be offered or recommended to reduce cancer risk in certain cases. Recommendations are based upon an individual???s genetic test result as well as their personal and family history of cancer. Questions to Think About Regarding Genetic Testing ? What effect will the test result have on me and my relationship with my family members if I have an inherited gene mutation? If I don???t have a gene mutation? ? Should I share my test results, and how will my family react to this news, which may also affect them? ? Are my children ready to learn new information that may one day affect their own health? Resources [employer] inTouch No Stomach for Cancer, Inc. nostomachforcancer.org Stomach Cancer Relief Network scrnet.org Collaborative Group of the Americas on Inherited Colorectal Cancer (CGA) cgaicc.com Cancer Care cancercare.org [place] Cancer Society (ACS) cancer.org National Cancer [place] (NCI) cancer.org Knight Syndrome International lynchcancers.com Please call us if you have any questions or concerns. Cancer Risk Management Program [phone] ( ) ? Stephy Ambrosio, MS, [facility] [phone] ? Gisselle Jensen, MS, [facility] [phone] ? Harriet Smyth, MS, [facility] [phone] ? Bassam Gupta, MS, [facility] [phone] ? Lisy Neff, MS, [facility] [phone] ? Annie Walters, MS, [facility] [phone] References 1. Rober Morales, Raymond Moe, Joshua Mercer, Prashant E, Elissa Moe, et al. The Prevalence of thyroid cancer and benign thyroid disease in patients with familial adenomatous polyposis may be higher than previously recognized. Clin Colorectal Cancer. 2012;11:304-308. 2. Carlos Teresa, Xiang Almonte, Sudheer Teresa, Corey Corbin, Buck Pulliam, et al. Risk of colorectal cancer in juvenile polyposis. Gut. 2007;56:965-967. 3. Tone FG, Ady [place], Baudilio [place]. Colorectal cancer risk in hamartomatous polyposis syndromes. World Journal of Gastrointestinal Surgery. 2015;27:25-32 4. Manish MG. Guidance on gastrointestinal surveillance for hereditary non- polyposis colorectal cancer, familial adenomatous polypolis, juvenile polyposis, and Peutz-Jeghers syndrome. Gut. 2002;51:21-27. 5. Malvin AK, Wiliam DENNY, Gabino JG et al. Risk of extracolonic cancers for people with biallelic and monoallelic mutations in MUTYH. Int J of Cancer. 2016;139:9034-8042. 6. Pablo S, Susu S, Vika H, Nicky K, Buitrago M, et al. MUTYH-associated polyposis: 70 of 71 patients with biallelic mutations present with an attenuated or atypical phenotype. Int J of Cancer. 2006;119:807-814. 7. Roxanne G, Kole F, Augusto I, Miroslava M, Parshall H, et al. MUTYH mutation carriers have increased breast cancer risk. Cancer. 2012;8414-1709. 8. Gomez MH, Hang J, Armida J, Oz LA, Charisma MS, Eng C. Lifetime cancer risks in individuals with germline PTEN mutations. Clin Cancer Res. 2012;18:400-7. 9. Pilarski R. Milton Syndrome: A Critical Review of the Clinical Literature. J Domenica Cone Worker. 2009:18:13-27. 10. National Comprehensive Cancer Network. Clinical practice guidelines in oncology, colorectal cancer screening. Available online (registration required). 2012. 11. National Cancer [place]. SEER Cancer Stat Fact Sheets. September 2013. 12. CHEK2 Breast Cancer Case-Control Consortium. CHEK2*1100delC and susceptibility to breast cancer:A collaborative analysis involving 10,860 breast cancer cases and 9,065 controls from 10 studies. AmJ Hum Domenica, 74 (2004), pp. 7197-1569 13. Barb T, Karl S, Yara Pulliam, et al. Spectrum of Mutations in BRCA1, BRCA2, CHEK2, and TP53 in Families at High Risk of Breast Cancer. SPRING. 2006;295(12):1546-4419. 14. Maureen Corbin, Ronnie Perera, Karma Almonte, et al. Risk of breast cancer in women with a CHEK2 mutation with and without a family history of breast cancer. J Clin Oncol. 2011;29:4934-0407. 15. Alysa Meo, Torie E, Kamaljit J, Ramírez N, Phil Vera et al. Defining the polyposis/colorectal cancer phenotype associated with the GREM1 duplication: counseling and management guidelines. Domenica .Res. 2016;98:1-5. 16. Maryan Morales, Den S, Kulwinder A, Lilia Rangel, et al. Hereditary mixed polyposis syndrome iscaused by a 40kb upstream duplication that leads to increased and ectopic expression of the BMP antagonist GREM1. Rhina Domenica. 2015;44:699-703. 17. Emerald Nascimento. et al. Germline mutations affecting the proofreading domains of POLE and POLD1 predispose to colorectal adenomas and carcinomas. Rhina. Domenica. 45, 136-44 (2013). 18. Tasha Saab. et al. POLE and POLD1 mutations in 529 rachelle with familial colorectal cancer and/or polyposis: review of reported cases and recommendations for genetic testing and surveillance. Domenica. Med. (2015). doi:10.1038/gim.2015.75 19. Gale Floyd et al. New insights into POLE and POLD1 germline mutations in familial colorectal cancer and polyposis. Hum. Mol. Domenica. 23, 0847-21 (2014). 20. Boris Crawley et al. Frequency and phenotypic spectrum of germline mutations in POLE and seven otherpolymerase genes in 266 patients with colorectal adenomas and carcinomas. Int. J. Cancer 137, 320-31(2015). Assessing Cancer Risk Only about 5-10% of cancers are thought to be due to an inherited cancer susceptibility gene. These families often have: ??? Several people with the same or related types of cancer ??? Cancers diagnosed at a young age (before age 50) ??? Individuals with more than one primary cancer ??? Multiple generations of the family affected with cancer Some people may be candidates for genetic testing of more than one gene. For these families, genetictesting using a cancer panel may be offered. These panels will test different genes known to increase the risk for breast, ovarian, uterine, and/or other cancers. All of the genes discussed below have published clinical management guidelines for individuals who are found to carry a mutation. The purpose of this handout is to serve as a brief summary of the genes analyzed by the panels used to inquireabout hereditary breast and gynecologic cancer: BELTRAN, BRCA1, BRCA2, BRIP1, CDH1, CHEK2, MLH1, MSH2, MSH6, PMS2, EPCAM, PTEN, PALB2, RAD51C, RAD51D, and TP53. Hereditary Breast and Ovarian Cancer Syndrome (BRCA1 and BRCA2) A single mutation in one of the copies of BRCA1 or BRCA2 increases the risk for breast and ovarian cancer, among others. The risk for pancreatic cancer and melanoma may also be slightly increased in some families. The chart below shows the chance that someone with a BRCA mutation would develop cancer in his or her lifetime1,2,3,4. A person???s ethnic background is also important to consider, as individuals of Ashkenazi Mosque ancestry have a higher chance of having a BRCA gene mutation. There are three BRCA mutations that occur more frequently in this population. Knight Syndrome (MLH1, MSH2, MSH6, PMS2, and EPCAM) Currently five genes are known to cause Knight Syndrome: MLH1, MSH2, MSH6, PMS2, and EPCAM. A single mutation in one of the Knight Syndrome genes increases the risk for colon, endometrial, ovarian, and stomach cancers. Other cancers that occur less commonly in Knight Syndrome include urinary tract, skin,and brain cancers. The chart below shows the chance that a person with Knight syndrome would develop cancer in his or her lifetime5. *Cancer risk varies depending on Knight syndrome gene found Chris Syndrome (PTEN) Chris syndrome is a hereditary condition that increases the risk for breast, thyroid, endometrial, colon, and kidney cancer. Chris syndrome is caused by a mutation in the PTEN gene. A single mutationin one of the copies of PTEN causes Chris syndrome and increases cancer risk. The chart below showsthe chance that someone with a PTEN mutation would develop cancer in their lifetime6,7. Other benignfeatures seen in some individuals with Milton syndrome include benign skin lesions (facial papules, keratoses, lipomas), learning disability, autism, thyroid nodules, colon polyps, and larger head size. *One recent study found breast cancer risk to be increased to 85% Li-Fraumeni Syndrome (TP53) Li-Fraumeni Syndrome (LFS) is a cancer predisposition syndrome caused by a mutation in the TP53 gene. A single mutation in one of the copies of TP53 increases the risk for multiple cancers. Individualswith LFS are at an increased risk for developing cancer at a young age. The lifetime risk for development of a LFS-associated cancer is 50% by age 30 and 90% by age 60. Core Cancers: Sarcomas, Breast, Brain, Lung, Leukemias/Lymphomas, Adrenocortical carcinomas Other Cancers: Gastrointestinal, Thyroid, Skin, Genitourinary Hereditary Diffuse Gastric Cancer (CDH1) Currently, one gene is known to cause hereditary diffuse gastric cancer (HDGC): CDH1. Individuals with HDGC are at increased risk for diffuse gastric cancer and lobular breast cancer. Of people diagnosed with HDGC, 30-50% have a mutation in the CDH1 gene. This suggests there are likely other genes that may cause HDGC that have not been identified yet. Lifetime Cancer Risks General Population HDGC Diffuse Gastric <1% ~80% Breast 12% 39-52% Additional Genes BELTRAN BELTRAN is a moderate-risk breast cancer gene. Women who have a mutation in BELTRAN can have between a 2-4 fold increased risk for breast cancer compared to the general population8. BELTRAN mutations have also been associated with increased risk for pancreatic cancer, however an estimate of this cancer risk is not well understood9. Individuals who inherit two BELTRAN mutations have a condition called ataxia-telangiectasia (AT). This rare autosomal recessive condition affects the nervous system and immune system, and is associated with progressive cerebellar ataxia beginning in childhood. Individuals with ataxia-telangiectasia often have a weakened immune system and have an increased risk for childhood cancers. PALB2 Mutations in PALB2 have been shown to increase the risk of breast cancer up to 33-58% in some families; where individuals fall within this risk range is dependent upon family . PALB2 mutationshave also been associated with increased risk for pancreatic cancer, although this risk has not beenquantified yet. Individuals who inherit two PALB2 mutations--one from their mother and one from their father--have a condition called Fanconi Anemia. This rare autosomal recessive condition is associated with short stature, developmental delay, bone marrow failure, and increased risk for childhood cancers. CHEK2 CHEK2 is a moderate-risk breast cancer gene. Women who have a mutation in CHEK2 have around a 2-foldincreased risk for breast cancer compared to the general population, and this risk may be higher depending upon family history.11,12,13 Mutations in CHEK2 have also been shown to increase the risk of anumber of other cancers, including colon and prostate, however these cancer risks are currently not well understood. BRIP1, RAD51C and RAD51D Mutations in BRIP1, RAD51C, and RAD51D have been shown to increase the risk of ovarian cancer and possibly female breast cancer as well14,15 . Lifetime Cancer Risk General Population BRIP1 RAD51C RAD51D Ovarian 1-2% ~5-8% ~5-9% ~7-15% Inheritance All of the cancer syndromes reviewed above are inherited in an autosomal dominant pattern. This means that if a parent has a mutation, each of his or her children will have a 50% chance of inheriting that same mutation. Therefore, each child--male or female--would have a 50% chance of being at increased risk for developing cancer. Image obtained from Genetics Home Reference, 2013 Mutations in some genes can occur de yumiko, which means that a person???s mutation occurred for the first time in them and was not inherited from a parent. Now that they have the mutation, however, it can be passed on to future generations. Genetic Testing Genetic testing involves a blood test and will look at the genetic information in the BELTRAN, BRCA1, BRCA2, BRIP1, CDH1, CHEK2, MLH1, MSH2, MSH6, PMS2, EPCAM, PTEN, PALB2, RAD51C, RAD51D, and TP53 genes for any harmful mutations that are associated with increased cancer risk. If possible, it is recommended that the person(s) who has had cancer be tested before other family members. That person will giveus the most useful information about whether or not a specific gene is associated with the cancer inthe family. Results There are three possible results of genetic testing: ??? Positive--a harmful mutation was identified in one or more of the genes ??? Negative--no mutation was identified in any of the genes on this panel ??? Variant of unknown significance--a variation in one of the genes was identified, but it is unclear how this impacts cancer risk in the family Advantages and Disadvantages There are advantages and disadvantages to genetic testing. Advantages ??? May clarify your cancer risk ??? Can help you make medical decisions ??? May explain the cancers in your family ??? May give useful information to your family members (if you share your results) Disadvantages ??? Possible negative emotional impact of learning about inherited cancer risk ??? Uncertainty in interpreting a negative test result in some situations ??? Possible genetic discrimination concerns (see below) Genetic Information Nondiscrimination Act (RIYA) RIYA is a federal law that protects individuals from health insurance or employment discrimination based on a genetic test result alone. Although rare, there are currently no legal discrimination protections in terms of life insurance, fdc care, or disability insurances. Visit the National Human [employer] [place] website to learn more. Reducing Cancer Risk All of the genes described above have nationally recognized cancer screening guidelines that would be recommended for individuals who test positive. In addition to increased cancer screening, surgeriesmay be offered or recommended to reduce cancer risk. Recommendations are based upon an individual???s genetic test result as well as their personal and family history of cancer. Questions to Think About Regarding Genetic Testing: ??? What effect will the test result have on me and my relationship with my family members if I havean inherited gene mutation? If I don???t have a gene mutation? Should I share my test results, and how will my family react to this news, which may also affectthem? Are my children ready to learn new information that may one day affect their own health? Hereditary Cancer Resources FORCE: Facing Our Risk of Cancer Empowered facingourrisk.org Bright Valinda bebrightpink.org Li-Fraumeni Syndrome Association lfsassociation.org PTEN World PTENworld.Exco inTouch No stomach for cancer, Inc. nostomachforcancer.org Stomach cancer relief network Scrnet.org Collaborative Group of the Americas on Inherited Colorectal Cancer (CGA) cgaicc.Exco inTouch Cancer Care cancercare.org [place] Cancer Society (ACS) cancer.org National Cancer [place] (NCI) cancer.gov Please call us if you have any questions or concerns. Cancer Risk Management Program [phone] ( ) ? Stephy Ambrosio, MS, [facility] [phone] ? Gisselle Jensen, MS, [facility] [phone] ? Harriet Smyth, MS, [facility] [phone] ? Bassam Gupta, MS, [facility] [phone] ? Lisy Neff, MS, [facility] [phone] ? Annie Walters, MS, [facility] [phone] References 21. José Miguel A, Oscar PDP, Rome S, Risfer DE LEON, Veronica JE, Debbie JL, Kendra N, Barrett H, Volodymyr, Juan A, June B, Irma P, Carlos S, Cecy DM, Cunningham N, Too E, Rosemary H, Kyree E, Jeferson J, Gromandi J, Maycol B, Tulreyesus H, Thorlacius S, Eerola H, Nevbetzaidana H, Anne K, Diego OP. Average risks of breast and ovarian cancer associated with BRCA1 or BRCA2 mutations detected in case series unselected for family history: a combined analysis of 222 studies. Am J Hum Domenica. 2003;72:1117-30. 22. Elissa N, Ashley M, Armando G. BRCA1 and BRCA2 Hereditary Breast and Ovarian Cancer. Gene Reviews online. 2013. 23. Ace YC, Ewa S, Mj G, Shay S. Breast cancer risk among male BRCA1 and BRCA2 mutation carriers. J Natl Cancer Inst. 2007;99:1811-4. 24. Pee DG, Nikki I, Chris J, Daniel E, Rupinder ER, Laalthea F. Risk of breast cancer in male BRCA2 carriers. J Med Domenica. 2010;47:710-1. 25. National Comprehensive Cancer Network. Clinical practice guidelines in oncology, colorectal cancer screening. Available online (registration required). 2015. 26. Gomez MH, Hang J, Armida J, Oz LA, Charisma MS, Eng C. Lifetime cancer risks in individuals with germline PTEN mutations. Clin Cancer Res. 2012;18:400-7. 27. Car Mlaone. Chris Syndrome: A Critical Review of the Clinical Literature. J Domenica Cone Worker. 2009:18:13-27. 28. Ivana Almonte, Mike D, Rosie S, Kasia P, Zohaib T, Linda M, Marcus B, Roman H, Sheldon R, Chari K, Franci L, Pee DG, Cecy D, Shamar DF, Dexter MR, The Breast Cancer Susceptibility Collaboration (UK) & Rashida Orlando. BELTRAN mutations that cause ataxia-telangiectasia are breast cancer susceptibility alleles. Nature Genetics. 2006;38:873-875 29. Jamey N , Shar Y, Maryana J, Sangeeta L, Hillary GM , Savannah ML, Deangelo S, Purvis AG, Antwon Hoover ML, Rosibel J , Espinoza R, Duncan SZ, Reji JR, Biju VE, Rosalind M, Vogelstein B, Kun N, Onel RH, Cassidy KW, and Mary AP. BELTRAN mutations in patients with hereditary pancreatic cancer. Cancer Discover. 2012;2:41-46 30. José Miguel Mayorga, et al. Breast-Cancer Risk in Families with Mutations in PALB2. NEJM. 2014; 371(6):497-506. 31. CHEK2 Breast Cancer Case-Control Consortium. CHEK2*1100delC and susceptibility to breast cancer:A collaborative analysis involving 10,860 breast cancer cases and 9,065 controls from 10 studies. AmJ Hum Domenica, 74 (2004), pp. 5471-2435 32. Barb T, Karl S, Yara K, et al. Spectrum of Mutations in BRCA1, BRCA2, CHEK2, and TP53 in Families at High Risk of Breast Cancer. SPRING. 2006;295(12):0763-6926. 33. Maureen Corbin, Ronnie Perera, Karma Almonte, et al. Risk of breast cancer in women with a CHEK2 mutation with and without a family history of breast cancer. J Clin Oncol. 2011;29:7804-7519. 34. Vazquez H, Christelle E, Adair SJ, et al. Contribution of germline mutations in the RAD51B, RAD51C, and RAD51D genes to ovarian cancer in the population. J Clin Oncol. 2015;33(26):2475-7019. Doi:10.1200/JCO.2015.61.2408. 35. Ame Khanna, Kushal LEAL, Filipe P, et al. Mutations in BRIP1 confer high risk of ovarian cancer. Rhina Domenica. 2011;43(11):9340-7507. doi:10.1038/ng.955. documented in this encounter Progress Notes Lisy Neff GC - 04/10/2019 9:00 AM CDT 04/10/2019 Referring Provider: Parul Salmeron APRN CNP Presenting Information: I met with Yamileth Kori today for genetic counseling at the Cancer Risk Management Program at the [facility] to discuss her family history of uterine, ovarian, colon, and pancreatic cancer.She is here today to review this history, cancer screening recommendations, and available genetic testing options. Personal History: Yamileth is a 73 year old female. She does not have any personal history of cancer. She had her first menstrual period at age 12, her first child at age 33, and went through menopause in her 40's. Yamileth has her ovaries, fallopian tubes and uterus in place. Due to abnormal bleeding, shehad a transvaginal ultrasound in 2018 that identified fibroids. She reports that she used hormone replacement therapy for a couple years in her 40's. She has regular clinical breast exams and mammograms; her most recent mammogram in April 2018 was normal. Her most recent colonoscopy in May 2015 was normal and follow-up was recommended in five years. She does not regularly do any other cancer screening at this time. Yamileth reported no tobacco use and occasional alcohol use. Family History: (Please see scanned pedigree for detailed family history information) ?? One sister is 80 and was diagnosed with uterine cancer at age 70; treatment included surgery. ?? One niece is 56 and was diagnosed with ovarian cancer at age 45; she has not pursued genetic testing. Her brother is in his 50's and was diagnosed with either bone cancer or leukemia in his 20's. ?? Yamileth's mother was diagnosed with colon cancer at age 92 and at age 93. ?? One maternal uncle was diagnosed with lung cancer and at age 55; this was attributed to a chemical exposure. ?? One maternal first cousin was diagnosed with and from colon cancer at age 75. ?? Yamileth's maternal grandmother was diagnosed with and from pancreatic cancer at age 86. Her father from colon cancer in his 60's. ?? One paternal aunt was diagnosed with colon cancer at age 80 and at age 92. Her daughter is 75 and was diagnosed with breast cancer at age 40. ?? One paternal half uncle (through her grandfather) was diagnosed with colon cancer at age 93 and at age 95. ?? One paternal first cousin once removed (through her grandmother) was diagnosed with bladder cancer at age 60 and at age 79; she had a history of smoking. ?? Her maternal ethnicity is [place] and [place]. Her paternal ethnicity is Australian, Luxembourgish, Armenian, and Yoruba. There is no known Ashkenazi Mosque ancestry on either side of her family. There is no reported consanguinity. Discussion: ?? Yamileth's family history of gynecologic and gastrointestinal cancers is suggestive of a hereditary cancer syndrome. ?? We reviewed the features of sporadic, familial, and hereditary cancers. In looking at Yamileth's family history, it is possible that a cancer susceptibility gene is present as she has both maternal and paternal relatives in five generations diagnosed with related cancers; several of these relatives were also diagnosed under age 50. ?? We discussed the natural history and genetics of several hereditary cancer syndromes, including Hereditary Breast and Ovarian Cancer (HBOC) syndrome and Knight syndrome. A detailed handout regarding these syndromes and the information we discussed was provided to Yamileth at the end of our appointment today and can be found in the after visit summary. Topics included: inheritance pattern, cancer risks,cancer screening recommendations, and also risks, benefits and limitations of testing. ?? One possible explanation for the family history is Knight syndrome, which is caused by mutations in the MLH1, MSH2, MSH6, PMS2, and EPCAM genes. Individuals with Knight syndrome are at increased risk for several different cancers, including uterine, ovarian, colon, and pancreatic cancer. ?? Based on her personal and family history, Yamileth meets current National Comprehensive Cancer Network (NCCN) criteria for genetic testing of the Knight syndrome genes. ?? Another potential explanation for the family history is HBOC syndrome,which is caused by mutations in the BRCA1 and BRCA2 genes. Individuals with HBOC syndrome are at increased risk for several different cancers, including breast, ovarian, male breast, prostate, melanoma, and pancreatic cancer. ?? Based on her personal and family history, Yamileth also meets current NCCN criteria for genetic testing of BRCA1 and BRCA2. ?? We discussed that there are additional genes that could cause increased risk for the cancers in her family. As many of these genes present with overlapping features in a family and accurate cancer risk cannot always be established based upon the pedigree analysis alone, it would be reasonable for Yamileth to consider panel genetic testing to analyze multiple genes at once. ?? We discussed that genetic testing for cancer susceptibility genes is typically most informative, though, when it is first performed on a family member with a personal history of cancer. Testing is available to Yamileth, but with limitations. If Yamileth pursues testing at this time and receives a negative r esult, this does not rule out the possibility of a hereditary cancer syndrome in her and/or her family. Despite these limitations, Yamileth expressed interest in proceeding with testing. ?? Yamileth expressed interest in gathering as much information as possible from genetic testing. As such, we discussed that genetic testing is available for 34 genes associated with hereditary cancer: CancerNext (APC, BELTRAN, BARD1, BRCA1, BRCA2, BRIP1, BMPR1A, CDH1, CDK4, CDKN2A, CHEK2, DICER1, EPCAM, GREM1, HOXB13, MLH1, MRE11A, MSH2, MSH6, MUTYH, NBN, NF1, PALB2, PMS2, POLD1, POLE, PTEN, RAD50, RAD51C, RAD51D, SMAD4, SMARCA4, STK11, and TP53). ?? We discussed that many of the genes in the CancerNext panel are associated with specific hereditary cancer syndromes and published management guidelines: Hereditary Breast and Ovarian Cancer syndrome (BRCA1, BRCA2), Knight syndrome (MLH1, MSH2, MSH6, PMS2, EPCAM), Familial Adenomatous Polyposis (APC), Hereditary Diffuse Gastric Cancer (CDH1), Familial Atypical Multiple Mole Melanoma syndrome (CDK4,CDKN2A), Juvenile Polyposis syndrome (BMPR1A, SMAD4), Milton syndrome (PTEN), Li Fraumeni syndrome (TP53), Peutz-Jeghers syndrome (STK11), MUTYH Associated Polyposis (MUTYH), and Neurofibromatosis type1 (NF1). ?? The BELTRAN, BRIP1, CHEK2, GREM1, NBN, PALB2, POLD1, POLE, RAD51C, and RAD51D genes are associated with increased cancer risk and have published management guidelines for certain cancers. ?? The remaining genes (BARD1, DICER1, HOXB13, MRE11A, RAD50, and SMARCA4) are associated with increased cancer risk and may allow us to make medical recommendations when mutations are identified. ?? Yamileth was provided with a detailed brochure from [facility] explaining the CancerNext testing. ?? Consent was obtained and genetic testing for CancerNext was sent to [facility]. Turn around time: 3-4 weeks. ?? Medical Management: For Yamileth, we reviewed that the information from genetic testing may determine: ?? additional cancer screening for which Yamileth may qualify (i.e. annual mammogram and breast MRI, more frequent colonoscopies, more frequent dermatologic exams, etc.), ?? options for risk reducing surgeries Yamileth could consider (i.e. bilateral mastectomy, surgery to remove her ovaries and/or uterus, etc.), ?? and targeted chemotherapies if she were to develop certain cancers in the future (i.e. immunotherapy for individuals with Knight syndrome, PARP inhibitors, etc.). ?? These recommendations and possible targeted chemotherapies will be discussed in detail once genetic testing is completed. Plan: 1) Today Yamileth elected to proceed with genetic testing using the CancerNext panel offered by [facility]. 2) This information should be available in 3-4 weeks. 3) Yamileth will return to clinic to discuss the results. Face to face time: 45 minutes Lisy Neff MS, [facility] Licensed Genetic Counselor Office: [phone] Pager: [phone] documented in this encounter Nursing Notes Teri Ruvalcaba, MO[place]STA - 04/10/2019 9:00 AM CDT Chief Complaint Patient presents with ??? Blood Draw Labs drawn via NOUGAT CUTTER MACHINE by RN in lab. Lab only appt. Teri Ruvalcaba RN documented in this encounter Plan of Treatment Upcoming Encounters Date Type Specialty Care Team Description 09/10/2022 Office Visit Internal Medicine Margot Branham MD [address] [address] (Wo rk) documented as of this encounter Procedures Procedure Name Priority Date/Time Associated Comments Diagnosis SEND OUTS MISC TEST Routine 04/10/2019 10:48 Family history of Results for this AM CDT colon cancer procedure are i n the results section. LABORATORY Routine 04/10/2019 10:48 Family history of Result s for this MISCELLANEOUS ORDER AM CDT colon cancer procedure are in Family history of the result s malignant neoplasm section. of ovary Family history of uterine cancer documented in this encounter Results Send outs misc test (04/10/2019 10:48 AM CDT) Analysis Performed At [facility] logist Time Signature Lab Scanned SEND OUTS MISYS Result MISC TEST-Scann ed Specimen Anatomical Collection Method Collection Time Receive d Time (Source) Location / / Volume Laterality 04/10/2019 10:48 04/10/2019 AM CDT 10:50 AM CDT Merrill Garcia MD LAB - BLOOD ORDERABLES Performing Organization Address City/State/ZIP Code Phon e Number MISYS CancerNext genetic testing, [place] Test: Laboratory Miscellaneous Order (04/10/2019 10:48 AM CDT) Component Value Ref Test Analysis Performed At [facility] gist Range Method Time Signature Miscellaneous Specimen Received, Reordered and sent to Performing laboratory - Report to follow upon 04/10/2019 [facility] OF Test completion. 11:18 AM [place] CDT [facility] Specimen Anatomical Collection Method Collection Time Receive d Time (Source) Location / / Volume Laterality Blood specimen 04/10/2019 10:48 9 (specimen) AM CDT 10:50 AM CDT Merrill Garcia MD LAB - BLOOD ORDERABLES Performing Organization Address City/[facility]/ZIP Code Phon e Number [address] [address] [facility] documented in this encounter Visit Diagnoses Diagnosis Family history of colon cancer - Primary Family history of malignant neoplasm of gastrointestinal tract Family history of malignant neoplasm of ovary Family history of uterine cancer Family history of malignant neoplasm of genital organ, other documented in this encounter Additional Health Concerns Assessment Noted Time PHQ-9 Depression Total Score: 1 03/30/2018 7:10 AM CDT documented as of this encounter Care Teams Musical Instruments Assembler Relationship Specialty Start Date End Date Lisseth Vang MD PCP - General 04/13/16 11/14/[address] [place] [address] Carlota Landeros MD MD Urology 04/10/[address] [place] [address] Lisseth Vang MD PCP Family Practice 03/30/16 11/14/[address] [place] [address] Michelle Montana, RN Registered Nurse Urology 05/07/17 Anh Costa APRN HEART SURGEON Nurse Practitioner Nurse Practitioner 10/07 Martinez Galicia MD MD Ophthalmology 04/18/18 [address] [place] [address] Sabino Roamno DPM MD Podiatry 08/11/[address] [phone] documented as of this encounter
--- OUTSIDE RECORDS SUMMARY | 2022-07-30 19:24 | XMS_ITS | Encounter Summary ---
:1945 Author Organization [facility] Address [address] [place] [address]. [place] [address] Care Team Providers Name Role Phone Lisseth Vang MD Primary Care Provider Carlota Landeros MD Unavailable Lisseth Vang MD Unavailable Michelle Montana RN Unavailable Anh Costa APRN BRUSH HEAD MAKER Unavailable Unavailable Martinez Galicia MD Unavailable Sabino Romano DPM Unavailable Reason for Visit Reason Onset Date Comments Appointment 06/29/2019 Pt needs hemorrhoid banding Call Back 06/29/2019 Pt called back and i s wanting to reschdule 07/07 to 07/12 if possible Encounter Details Date Type Department Care Team Description 06/29/2019 Telephone [facility] Nam and Mignon Salmeron (Pt needs Rectal Surgery Parul Devlin APRN hemorrhoid banding); [address] [facility] [address] BRUSH HEAD MAKER Call Back (Pt called [address]th Floor [address] [facility] back and is wanting to [place] [address] reschdule 07/07 to 07/12 [id number] [place], [place] if possible ) [phone] (Wo rk) Social History Tobacco Use Types Packs/Day Years Used Date Smoking Tobacco: Never Smokeless Tobacco: Never Alcohol Use Standard Drinks/Week Comments Yes 0 (1 standard drink = 0.6 oz pure alcoho l) wine few times/wk Sex Assigned at Date Recorded Female 12/20/2018 4:10 PM CDT documented as of this encounter Miscellaneous Notes Telephone Encounter - Antonio David LPN - 06/30/2019 9:26 AM CDT Called patient, left message for patient, I do not have an opening on 07/12/19 for a clinic visit. Patient to call back to reschedule appointment. Jimmie David LPN Telephone Encounter - Mary Butler - 06/29/2019 4:31 PM CDT [facility] Phone Message May a detailed message be left on voicemail: yes Reason for Call: Other: Pt called back in and stated that she would like to change her appointment from 07/07 to 07/12. Please follow up with pt. thank you Action Taken: Message routed to: [facility] ([facility]): Colon Rect Surg Telephone Encounter - Priya Nava RN - 06/29/2019 3:57 PM CDT Contacted pt. Scheduled appt for 07/07 at 9:30 am Telephone Encounter - Mary Butler - 06/29/2019 3:34 PM CDT [facility] Phone Message May a detailed message be left on voicemail: yes Reason for Call: Other: Pt calling in to be scheduled from her symptoms of hemorrhoid. Pt stated that she is needing an appointment as soon as possible. Guard Sergeant did offer provides first available appointment of 07/07, but pt declined and wanted a message sent to provider. Please advise Action Taken: Message routed to: [facility] ([facility]): Colon RectSurg documented in this encounter Plan of Treatment Upcoming Encounters Date Type Specialty Care Team Description 09/10/2022 Office Visit Internal Medicine Margot Branham MD [address] [facility] [address] [place], [place] [id number] (Wo rk) documented as of this encounter Visit Diagnoses Not on filedocumented in this encounter Additional Health Concerns Assessment Noted Time PHQ-9 Depression Total Score: 1 03/30/2018 7:10 AM CDT documented as of this encounter Care Teams Leather Stripping Machine Operator Relationship Specialty Start Date End Date Lisseth Vang MD PCP - General 04/13/16 11/14/[address] [place], [place] [address] Carlota Landeros MD MD Urology 04/10/[address] [place], [place] [address] Lisseth Vang MD PCP Family Practice 03/30/16 11/14/[address] [place], [place] [id number] Michelle Montana, RN Registered Nurse Urology 05/07/17 Ahn Costa APRN BRUSH HEAD MAKER Nurse Practitioner Nurse Practitioner 10/07 Martinez Galicia MD MD Ophthalmology 04/18/18 [address] [place], [place] [address] Sabino Romano DPM MD Podiatry 08/11/[address] [place] [phone] documented as of this encounter
--- OUTSIDE RECORDS SUMMARY | 2022-07-30 19:24 | XMS_ITS | Encounter Summary ---
:1945 Author Organization [facility] Address [address] [place] [address]. [place] [address] Care Team Providers Name Role Phone Lisseth Vang MD Primary Care Provider Carlota Landeros MD Unavailable Lisseth Vang MD Unavailable Michelle Montana RN Unavailable Anh Costa APRN ALODIZE MACHINE HELPER Unavailable Unavailable Martinez Galicia MD Unavailable Sabino Romano DPM Unavailable Reason for Visit Reason Comments Annual Eye Exam Pseudophakia - Both Eyes Encounter Details Date Type Department Care Team Description 08/15/2019 Office Visit [facility] Eye Martinez Galicia Vitre ous degeneration, right - Right Eye (Primary Dx); Clinic - Latoya Pearson MD Posterior vitreous detachment, right; Nakul Oneil [address] Pseudophakia - Both Eyes; Building [place], [place] Fuchs' endothelial dystrophy - Both Eyes [address] [place] [address] [address] Clin 9A [phone] [place], [place] (Work) [phone] [phone] Social History Tobacco Use Types Packs/Day Years Used Date Smoking Tobacco: Never Smokeless Tobacco: Never Alcohol Use Standard Drinks/Week Comments Yes 0 (1 standard drink = 0.6 oz pure alcoho l) wine few times/wk Sex Assigned at Date Recorded Female 12/20/2018 4:10 PM CDT documented as of this encounter Progress Notes Martinez Galicia MD - 08/15/2019 8:45 AM CST Chief Complaint(s) and History of Present Illness(es) Annual Eye Exam Associated symptoms: floaters and flashes. Negative for eye pain, dryness and tearing Comments: Pseudophakia - Both Eyes Comments Pt has floaters that are getting worse since the summer RE. Pt says that vision is good. Pt reports little white lights in a dark environment for about the last month. Pt has no pain or other concerns at this time. MARISOL Richmond August 15, 2019 8:52 AM Review of systems for the eyes was negative other than the pertinent positives/negatives listed in the HPI. Assessment & Plan Yamileth Sheikh is a 74 year old female with the following diagnoses: 1. Vitreous degeneration, right - Right Eye 2. Posterior vitreous detachment, right 3. Pseudophakia - Both Eyes 4. Fuchs' endothelial dystrophy - Both Eyes Overall doing well Posterior vitreous detachment (PVD) with persistent visual symptoms since this past summer RBA to YAG vitreolysis right eye discussed, consent obtained, will schedule Dilated fundus exam otherwise stable Considering new glasses, refract as needed Patient disposition: Return in about 4 weeks (around 09/12/2019) for DFE RIGHT (YAG). Attending Physician Attestation: Complete documentation of historical [...] patient and family.. - Martinez Galicia MD HEALTH CNA documented in this encounter Nursing Notes Calvin Carrillo COT - 08/15/2019 8:45 AM CST Chief Complaints and History of Present Illnesses Patient presents with ??? Annual Eye Exam Pseudophakia - Both Eyes Chief Complaint(s) and History of Present Illness(es) Annual Eye Exam Associated symptoms: floaters and flashes. Negative for eye pain, dryness and tearing Comments: Pseudophakia - Both Eyes Comments Pt has floaters that are getting worse since the summer RE. Pt says that vision is good. Pt reportslittle white lights in a dark environment for about the last month. Pt has no pain or other concernsat this time. 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 documented in this encounter Additional Health Concerns Assessment Noted Time PHQ-9 Depression Total Score: 1 03/30/2018 7:10 AM CDT documented as of this encounter Care Teams Benefits Analyst Relationship Specialty Start Date End Date Lisseth Vang MD PCP - General 04/13/16 11/14/[address] [place], [place] [address] Carlota Landeros MD MD Urology 04/10/[address] [place], [place] [address] Lisseth Vang MD PCP Family Practice 03/30/16 11/14/[address] [place], [place] [id number] Michelle Montana, MODESTA Registered Nurse Urology 05/07/17 Anh Costa APRN ALODIZE MACHINE HELPER Nurse Practitioner Nurse Practitioner 10/07 Martinez Galicia MD MD Ophthalmology 04/18/18 [address] [place] [address] Sabino Romano DPM MD Podiatry 08/11/[address] [place] [phone] documented as of this encounter
--- OUTSIDE RECORDS SUMMARY | 2022-07-30 19:24 | XMS_ITS | Encounter Summary ---
:1945 Author Organization [facility] Address [address] [place] [address]. [place] [address] Care Team Providers Name Role Phone Lisseth Vang MD Primary Care Provider Carlota Landeros MD Unavailable Lisseth Vang MD Unavailable Michelle Montana RN Unavailable Anh Costa APRN, CNP Unavailable Unavailable Martinez Galicia MD Unavailable Sabino Romano DPM Unavailable Reason for Referral (Routine) - Closed Specialty Diagnoses / Procedures Referred By Contact Refer red To Contact Diagnoses Hyperlipidemia, unspecified hyperlipidemia type Anh Costa APRN CNP Procedures Spirometry, Breathing Capacity [address] [place] [address] Referral ID Status Reason Start Date Expiration Date Visits Requ ested Visits Authorized [id number] Closed 04/10/2019 04/09/2020 1 1 Reason for Visit Reason Comments Hypertension Encounter Details Date Type Department Care Team Description 04/10/2019 Office Visit [facility] for Anh Costa pidemia, unspecified hyperlipidemia type (Primary Dx); Cardiovascular Disease CLAUDIA Marsh CNP Ot er specified peripheral vascular diseases (H) Prevention [address] [facility] [address] [place] [address] Social History Tobacco Use Types Packs/Day Years Used Date Smoking Tobacco: Never Smokeless Tobacco: Never Alcohol Use Standard Drinks/Week Comments Yes 0 (1 standard drink = 0.6 oz pure alcoho l) wine few times/wk Sex Assigned at Date Recorded Female 12/20/2018 4:10 PM CDT documented as of this encounter Last Filed Vital Signs Vital Sign Reading Time Taken Comments Blood Pressure 122/70 04/10/2019 1:43 PM CDT Pulse 58 04/10/2019 1:43 PM CDT Temperature - - Respiratory Rate - - Oxygen Saturation 98% 04/10/2019 1:43 PM CDT Inhaled Oxygen Concentration - - Weight 64.2 kg (141 lb 8 oz) 04/10/2019 1:43 PM CDT Height 167.6 cm (5' 6) 04/10/2019 1:43 PM CDT Body Mass Index 22.84 04/10/2019 1:43 PM CDT documented in this encounter Progress Notes Anh Costa, CLAUDIA STATISTICAL GENETICIST - 04/10/2019 1:00 PM CDT [facility] Cardiovascular Disease Prevention - Exam Note Active Problems Patient Active Problem List Diagnosis Date Noted ??? Hyperlipidemia Priority: Medium ASCVD risk 8.1%, [...] mass in breast 12/06/2013 Priority: Medium ??? Muscle weakness 10/07/2012 Priority: Medium ??? Mixed stress and urge urinary incontinence 10/07/2012 Priority: Medium ??? Hypertension 08/15/2012 Priority: Medium ??? Osteopenia 08/15/2012 Priority: Medium ??? Atrophic vaginitis 08/15/2012 Priority: Medium ??? Hemorrhoids 05/02/2012 Priority: Medium ??? Anal fissure 05/02/2012 Priority: Medium ??? Tinnitus of both ears 04/21/2012 Priority: Medium ??? Urinary retention 04/02/2011 Priority: Medium ??? Urinary urgency 04/02/2011 Priority: Medium ??? CARDIOVASCULAR SCREENING; LDL GOAL LESS THAN 130 08/03/2010 Priority: Medium ??? Elevated blood pressure reading without diagnosis of hypertension 09/23/2009 Priority: Medium Reason For Visit Patient here for [facility] early detection of atherosclerosis and CVD exam. Pain Evaluation Current history of pain associated with this visit is: denied RITO Carson Ramona Sheikh is a 73 year old year old female with a history of history of arthritis with right hip replacement, bladder stimulator implant (generator replaced 2016) hyperlipidemia and hypertension.?? She is currently taking irbesartan 150 mg per day for HTN and rosuvastastin 5 mg per day for her lipids. She is tolerating both of these medications without side effects. She has been working veryhard to improve her health habits with weight loss and regular exercise with reduction of 49 pounds from her highest weight of 190 to 141 today. She is planning to have right shoulder surgery May 03for rotator cuff repair. She is active walking 3 miles a day without chest pain or shortness of breath. Since her shoulder has been painful she is not doing any upper body strength training. She reports home blood pressures of 98-110 systolic/68-70 diastolic with higher clinic blood pressures. Nutrition assessment per patient report: She has been reading books about healthy eating and currently is using a mediteranean-DASH eating plan. Her sodium intake is very low at 800 mg per day. Foods with fat/cholesterol (fried foods, fatty meats, junk food): 0 servings Fruits and vegetables (?? cup cooked, 1 cup raw): 4-5 veges 2-3 fruit. Caffeine (1 cup coffee, soda, etc): 2 servings per day coffee black Alcohol servings (12 oz. beer, 4 oz. wine, 1?? oz. in mixed drink): 3 servings per week Calcium servings (dairy foods, 8 oz. milk, yogurt, cheese, ice cream): 3- 4 servings per day Salt/sodium use: rarely, under 800 mg/d Special dietary habits: mediteranean -dash eating plan Activity Patient is active 5-7 times per week for 30 or more minutes with walking. Laboratory Results Review We discussed laboratory results today including lipids targets and how foods influence cholesterol. Weight Her perceived healthy weight is 141 pounds. A normal BMI of 25 is equal to 155 pounds. The current BMI of 22.8 is normal weight range. PMH Past Medical History: Diagnosis Date ??? Benign [...] bladder implant, interstim ??? Vitamin D deficiency PSH Past Surgical History: Procedure Laterality Date ??? [...] Carlota Landeros MD; [facility]: [facility] ??? SURGICAL HISTORY OF - ? Nasal passages microwaved. Dr Bare ENT ??? uteroscopy 05/04/2018 Current Meds Current Outpatient Medications Medication Sig Dispense Refill ??? cholecalciferol (VITAMIN D3) 1000 UNIT tablet Take 2 tablets by mouth daily. ??? ciclopirox (LOPROX) 0.77 % cream Apply topically 2 times daily To foot and toenail. 90 g 5 ??? estradiol (ESTRACE VAGINAL) 0.1 MG/GM cream Place 1 g vaginally three times a week Apply a smallamt externally to vulva three times weekly. 30 g 12 ??? estradiol (ESTRING) [address] RING VAGINALLY EVERY 3 MONTHS. 1 each 3 ??? hydrocortisone (ANUSOL-HC) 2.5 % cream Place rectally 2 times daily 30 g 3 ??? irbesartan (AVAPRO) 150 MG tablet Take 1 tablet (150 mg) by mouth daily 90 tablet 3 ??? OTHER MEDICAL SUPPLIES ROCÍO stockings knee length USE DIRECTED . ??? rosuvastatin (CRESTOR) 5 MG tablet Take 1 tablet (5 mg) by mouth daily 90 tablet 3 ??? valACYclovir (VALTREX) 1000 mg tablet Take 1 tablet (1,000 mg) by mouth 3 times daily as needed 20 tablet 1 ??? amoxicillin (AMOXIL) 500 MG capsule Take 2 capsules by mouth as needed 1 hour before dental procedures ??? Coenzyme Q10 (COQ-10) 100 MG CAPS Take 100 mg by mouth daily ??? LYSINE PO Take 1 tablet by mouth 2 times daily ??? Probiotic Product (PROBIOTIC DAILY PO) Take 1 capsule by mouth as needed Allergies Allergies Allergen Reactions ??? Codeine Nausea and Vomiting ??? Morphine Nausea and Vomiting Other reaction(s): GI intolerance, severe dry heaves ??? Oxycodone Other (See Comments) ??? Propofol Other (See Comments) and Nausea and Vomiting Other reaction(s): GI intolerance Extreme vertigo and nausea/vomiting ??? Perindopril Cough and Tinnitus Other reaction(s): Cough ??? Latex Rash ??? Latex Rash ??? Nickel Rash ??? No Clinical Screening - See Comments Rash ??? Tape [Adhesive Tape] Rash Including steri-strips Family Hx Family History Problem Relation Age of Onset [...] ??? Myocardial Infarction Maternal Grandfather 82 of [place] ??? Hypertension Maternal Grandfather ??? Cardiovascular Paternal Grandmother age 65 of heart problems ??? Hypertension Paternal Grandmother ??? Pneumonia Paternal Grandfather age 70 after flu ??? No Known Problems Son ??? Colon Cancer Cousin ??? Colon Cancer Paternal Uncle ??? Colon Cancer Paternal Aunt ??? Colon Cancer Maternal Great-Grandfather ??? Macular Degeneration No family hx of Social History Yamileth is retired and is retired. Her job is semi-active. She is single with son age 40.. Enjoyment of life is 10 with 10 enjoys life fully. Tobacco History History Smoking Status ??? Never Smoker Smokeless Tobacco ??? Never Used ROS CONSTITUTIONAL: No fever, chills, or sweats. No weight gain/loss. EENT: No visual disturbance, ear ache, epistaxis, sore throat ALLERGIES/IMMUNOLOGIC: Negative RESPIRATORY: No cough, hemoptysis CARDIOVASCULAR: As per HPI GI: No nausea, vomiting, hematemesis, melena : No urinary frequency, dysuria, or hematuria INTEGUMENT: Negative PSYCHIATRIC: Negative NEURO: Negative ENDOCRINE: Negative MUSCULOSKELETAL: Negative MUSCULOSKELETAL: planning shoulder surgery. Vital Signs BP 122/70 (BP Location: Left arm, Patient Position: Sitting, Cuff Size: Adult Regular) Pulse 58 Ht 1.676 m (5' 6) Wt 64.2 kg (141 lb 8 oz) SpO2 98% BMI 22.84 kg/m?? Waist: 34 inches Hip: 36 inches Physical Exam In general, the patient is a pleasant female in no apparent distress. HEENT: NC/AT. PERRLA. EOMI. Sclerae white, not injected. Nares clear. Pharynx without erythema or exudate. Dentition intact. Neck: No adenopathy. No thyromegaly.Carotids +4/4 bilaterally without bruits. No jugular venous distension. Lungs: CTA. No ronchi, wheezes, rales. Cor: RRR. Normal S1, S2 splits physiologically. No murmur, rub, click, or gallop. The PMI is in the 5th ICS in the midclavicular line. There is no heave. Abdomen: Soft, nontender, nondistended. No organomegaly. No bruits. Extremities: No clubbing, cyanosis, or edema. The pulses are +2/2 at the post- tibial sites bilaterally. No bruits are noted. Recent Labs Lab Results Component Value Date GLC 96 04/10/2019 Lab Results Component Value Date NTBNP 161 (H) 03/25/2018 No results found for: NTBNPI Lab Results Component Value Date UCRR 86 04/10/2019 Lab Results Component Value Date MICROL <5 04/10/2019 No results found for: MICROALBUMIN Lab Results Component Value Date CRP 0.9 04/10/2019 Lab Results Component Value Date CHOL 132 04/10/2019 Lab Results Component Value Date TRIG 54 04/10/2019 Lab Results Component Value Date HDL 78 04/10/2019 Lab Results Component Value Date LDL 44 04/10/2019 Lab Results Component Value Date VLDL 31 (H) 01/04/2015 Lab Results Component Value Date CHOLHDLRATIO 3.4 01/04/2015 Lab Results Component Value Date NHDL 54 04/10/2019 Malin Test Results BASIC SPIROMETRY: Summary of two attempts (see printout for details of results) Results Estimated range for ht/age FVC: 2.64 liter FVC: 2.44-3.91 liter FEV1:2.29 liter FEV1: 1.78-3.02 liter History of asthma: NO History of respiratory infection current/recent: NO Spirometry Results: normal WALKING BLOOD PRESSURE RESPONSE (3 minute, 5 MET level walk) Pre BP: 120/82 mmHg 3 min BP: 140/60 mmHg 1 min post BP: 120/72 mmHg Pre HR: 59 bpm 3 min HR: 90 bpm 1 min post HR: 63 bpm RETINAL VASCULAR ASSESSMENT Left Eye Abnormality: none AV Ratio: 0.96 Right Eye Abnormality: none AV Ratio: 0.85 Retinal Assessment: normal. ABDOMINAL AORTA ULTRASOUND (< 2.5 normal, borderline 2.5-2.9, abnormal > 3) SupraIliac 1.76 cm SupraRenal 1.66 cm InfraRenal Proximal 1.58 cm InfraRenal Distal 2.10 cm Abdominal Aorta Assessment: normal LEFT VENTRICULAR ULTRASOUND MEASUREMENTS (adjusted for BSA) LVIDD 41.5 mm Septa 9.5 mm Posterior 7.8 mm Left Ventricular US Assessment: normal Carotid Artery IMT measurements report and plaques in the small area examined: Left IMT 0.838 mm Plaques none Right IMT 0.770 mm Plaques small hetrogeneous plaque in right bulb area size 1.3 mm. ECG (see tracing): normal sinus rhythm; rate: 58 bpm Arterial Elasticity per age and gender (see printout): C1 13 mL/mmHg x 10 normal C2 2.9 mL/mmHg x 100 abnormal Supine blood pressure: 121/63 mmHg Assessment: Cardiovascular: ECG normal sinus rhythm rate 58. No chest pain or shortness of breath or palpitations. She is active walking 3 miles without symptoms. Blood Pressure: Home blood pressures with irbesartan 150 mg per day are low normal 98-110 systolic which she is tolerating without dizziness or light headedness. Clinic blood pressure are higher 120/70's. We discussed home monitoring of blood pressure to make sure she is not too low. Creatinine 0.7 and GFR 87 5-16-19 normal range. Arterial compliance has been abnormally in the past with small artery at 2.5. Today her small artery is slightly higher at 3.1 improved to the borderline range. Lipids: Taking crestor 5 mg per day for hyperlipidemia and to help preserve her arterial compliance which has improved with statin, weight loss, exercise and healthy eating. LDL is 44 today (was 141 [id number]), HDL is higher at 78 (was 62). Will discuss with team if reduction in statin is indicated withLDL at 44 however she has benefited with improved compliance. Health Habit Summary: Nutrition: Heart Healthy Eating: most of the time Exercise: regularly active Weight: normal weight range Tobacco Use: never used Full report to follow prevention team review of test results with scanned final report. Time spent for patient visit was 60 minutes with more than half the time spent on counseling and coordination of care. [facility] Patient Care Team: Lisseth Vang MD as PCP - General Carlota Landeros MD as MD (Urology) Lisseth Vang MD as PCP (Family Practice) Michelle Montana RN as Registered Nurse (Urology) Anh Costa, CLAUDIA MILLER as Nurse Practitioner (Nurse Practitioner) Martinez Galicia MD as MD (Ophthalmology) Sabino Romano DPM as (Podiatry) ANH COSTA Answers for HPI/ROS submitted by the patient on 04/07/2019 General Symptoms: Yes Skin Symptoms: Yes HENT Symptoms: Yes EYE SYMPTOMS: No HEART SYMPTOMS: No LUNG SYMPTOMS: No INTESTINAL SYMPTOMS: No URINARY SYMPTOMS: No GYNECOLOGIC SYMPTOMS: No BREAST SYMPTOMS: No SKELETAL SYMPTOMS: Yes BLOOD SYMPTOMS: No NERVOUS SYSTEM SYMPTOMS: No MENTAL HEALTH SYMPTOMS: No Fever: No Loss of appetite: No Weight loss: No Weight gain: No Fatigue: No Night sweats: Yes Chills: No Increased stress: No Excessive hunger: No Excessive thirst: No Feeling hot or cold when others believe the temperature is normal: No Loss of height: No Post-operative complications: No Surgical site pain: No Hallucinations: No Change in or Loss of Energy: No Hyperactivity: No Confusion: No Changes in hair: No Changes in moles/ mohan: No Itching: Yes Rashes: No Changes in nails: Yes Acne: No Hair in places you don't want it: No Change in facial hair: No Warts: No Non-healing sores: No Scarring: No Flaking of skin: No Color changes of hands/feet in cold : No Sun sensitivity: No Skin thickening: No Ear pain: No Ear discharge: No Hearing loss: Yes Tinnitus: Yes Nosebleeds: No Congestion: Yes Sinus pain: No Trouble swallowing: No Voice hoarseness: No Mouth sores: No Sore throat: No Tooth pain: No Gum tenderness: No Bleeding gums: No Change in taste: No Change in sense of smell: No Dry mouth: No Hearing aid used: No Neck lump: No Back pain: No Muscle aches: No Neck pain: No Swollen joints: No Joint pain: Yes Bone pain: No Muscle cramps: No Muscle weakness: No Joint stiffness: No Bone fracture: No documented in this encounter Plan of Treatment Upcoming Encounters Date Type Specialty Care Team Description 09/10/2022 Office Visit Internal Medicine Logeais, MD Margot [address] [address] (Wo rk) documented as of this encounter Procedures Procedure Name Priority Date/Time Associated Diagnosis Comme nts EKG 12-LEAD, Routine 04/10/2019 1:54 PM Hyperlipidemia, Result s for this TRACING ONLY CDT unspecified procedure are i n hyperlipidemia type the resu lts section. CARDIAC OTHER - HIM 04/10/2019 12:00 SCAN AM CDT HC ANKLE-ARM INDEX Routine 04/10/2019 Other specified 1-2 LEVEL BILATERAL peripheral vascular diseases (H) Hyperlipidemia, unspecified hyperlipidemia type HC SPIROMETRY, Routine 04/10/2019 Hyperlipidemia, BREATH CAPACITY unspecified hyperlipidemia type HC PHOTOGRAPY Routine 04/10/2019 Hyperlipidemia, FUNDUS unspecified hyperlipidemia type documented in this encounter Results EKG 12-lead, tracing only (04/10/2019 1:54 PM CDT) [facility] gist Method Time Signature Interpretation ECG Click View RADIOLOGY Image link RESULTS to view waveform and result Specimen (Source) Anatomical Collection Method Collection Time Re ceived Time Location / / Volume Laterality 04/10/2019 1:54 PM CDT Anh Costa APRN, CNP ECG ORDERABLES Performing Organization Address City/State/ZIP Code Phon e Number RADIOLOGY RESULTS PHOTOGRAPY FUNDUS (04/10/2019) Narrative This result has an attachment that is no t available. Anh Costa APRN, CNP PROCEDURES Spirometry, Breathing Capacity (04/10/2019) P athologist Signature FEV-1 FVC FEV1/FVC FEF 25/75 Narrative This result has an attachment that is no t available. Anh Costa APRN, CNP PROCEDURES CARDIAC OTHER - HIM SCAN (04/10/2019 12:00 AM CDT) Anatomical Region Laterality Modality Other Specimen (Source) Anatomical Location Collection Method / Collectio n Time Received Time / Laterality Volume 04/10/2019 Narrative This result has an attachment that is no t available. Anh Costa APRN, CNP CV CARDIAC SERVICES ORDERABL ES Arterial PulseWave Analysis (04/10/2019) Anatomical Region Laterality Modality Other Narrative This result has an attachment that is no t available. Anh Costa APRN, CNP SPECIAL IMAGING STUDIES documented in this encounter Visit Diagnoses Diagnosis Hyperlipidemia, unspecified hyperlipidem ia type - Primary Other specified peripheral vascular dise ases (H) documented in this encounter Additional Health Concerns Assessment Noted Time PHQ-9 Depression Total Score: 1 03/30/2018 7:10 AM CDT documented as of this encounter Care Teams Twister In Relationship Specialty Start Date End Date Lisseth Vang MD PCP - General 04/13/16 11/14/[address] [place], [place] [id number] Carlota Landeros MD MD Urology 04/10/[id number] [place] [address] Lisseth Vang MD PCP Family Practice 03/30/16 11/14/[address] [place], [place] [id number] Michelle Montana, MODESTA Registered Nurse Urology 05/07/17 Anh Costa APRN CNP Nurse Practitioner Nurse Practitioner 10/07 Martinez Galicia MD MD Ophthalmology 04/18/18 [address] [place], [place] [id number] Sabino Romano DPM MD Podiatry 08/11/[address] [phone] documented as of this encounter
--- OUTSIDE RECORDS SUMMARY | 2022-07-30 19:24 | XMS_ITS | Encounter Summary ---
:1945 Author Organization [facility] Address [address] [place] [address]. [place] [address] Care Team Providers Name Role Phone Lisseth Vang MD Primary Care Provider Carlota Landeros MD Unavailable Lisseth Vang MD Unavailable Michelle Montana RN Unavailable Anh Costa APRN DECORATING EQUIPMENT SETTER Unavailable Unavailable Martinez Galicia MD Unavailable Sabino Romano DPM Unavailable Reason for Visit Reason Onset Date Comments Appointment 04/25/2019 Pt calling asking fo r an appointment when the [employer] rep is in with her. Pt is h aving issues with her [employer] safety administrator. Please r eturn call. Encounter Details Date Type Department Care Team Description 04/25/2019 Telephone [facility] and Carlota Landeros A ppointment (Pt Inst for Prostate and calling asking for an Urologic [place] [id number] [place] appointment when the [address] [place] [address] [address] [employer] rep is in [address] Floor [place], [place]. [place] [address] [place] her [id number] [employer] safety administrator. [phone] Please re turn call. ) Social History Tobacco Use Types Packs/Day Years Used Date Smoking Tobacco: Never Smokeless Tobacco: Never Alcohol Use Standard Drinks/Week Comments Yes 0 (1 standard drink = 0.6 oz pure alcoho l) wine few times/wk Sex Assigned at Date Recorded Female 12/20/2018 4:10 PM CDT documented as of this encounter Miscellaneous Notes Telephone Encounter - Asa Hinson - 04/26/2019 10:34 AM CDT [facility] Phone Message May a detailed message be left on voicemail: yes Reason for Call: Other: Ramona calling to state she is having surgery on 05/03 and has a lot of PT appts. She is available 05/23- or . Please call her back to schedule. Action Taken: Message routed to: [facility] u[facility] Telephone Encounter - Leah Harvey CMA - 04/26/2019 9:20 AM CDT Message left on patient's voicemail stating if the patient is available on 05/03/2019 @ 2:00 pm for anurse visit with Michelle Montana RNCC for Dr. Carlota Landeros. Leah Harvey MA Telephone Encounter - Rayna Waters - 04/25/2019 4:55 PM CDT [facility] Phone Message May a detailed message be left on voicemail: yes Reason for Call: Other: Pt calling asking for an appointment when the [employer] rep is in with her. Pt is having issues with her [employer] safety administrator. Please return call. Action Taken: Message routed to: [facility] ([facility]): uc u[facility] documented in this encounter Plan of Treatment Upcoming Encounters Date Type Specialty Care Team Description 09/10/2022 Office Visit Internal Medicine [place], MD Margot [address] [id number] (Wo rk) documented as of this encounter Visit Diagnoses Not on filedocumented in this encounter Additional Health Concerns Assessment Noted Time PHQ-9 Depression Total Score: 1 03/30/2018 7:10 AM CDT documented as of this encounter Care Teams Packer Relationship Specialty Start Date End Date Lisseth Vang MD PCP - General 04/13/16 11/14/[address] [place], [place] [id number] Carlota Landeros MD MD Urology 04/10/[address] [place], [place] [address] Lisseth Vang MD PCP Family Practice 03/30/16 11/14/[address] [place], [place] [id number] Michelle Montana RN Registered Nurse Urology 05/07/17 Anh Costa APRN DECORATING EQUIPMENT SETTER Nurse Practitioner Nurse Practitioner 10/07 Martinez Galicia MD MD Ophthalmology 04/18/18 [address] [place] [address] Sabino Romano DPM MD Podiatry 08/11/[address] [place] [id number] documented as of this encounter
--- OUTSIDE RECORDS SUMMARY | 2022-07-30 19:24 | XMS_ITS | Encounter Summary ---
:1945 Author Organization [facility] Address [address] [place] [address]. [place] [address] Care Team Providers Name Role Phone Lisseth Vang MD Primary Care Provider Carlota Landeros MD Unavailable Lisseth Vang MD Unavailable Michelle Montana RN Unavailable Anh Costa APRN QUALITY ASSURANCE INSPECTOR Unavailable Unavailable Martinez Galicia MD Unavailable Sabino Romano DPM Unavailable Encounter Details Date Type Department Care Team Description 07/19/2019 Travel Social History Tobacco Use Types Packs/Day [...] Office Visit Internal Medicine Margot Branham MD [address] [place] [address] (Wo rk) documented as of this encounter Visit Diagnoses Not on filedocumented in this encounter Additional Health Concerns Assessment Noted Time PHQ-9 Depression Total Score: 1 03/30/2018 7:10 AM CDT documented as of this encounter Care Teams Group Home Supervisor Relationship Specialty Start Date End Date Lisseth Vang MD PCP - General 04/13/16 11/14/[address] [place] [address] Carlota Landeros MD MD Urology 04/10/[address] [place], [place] [phone] Lisseth Vang MD PCP Family Practice 03/30/16 11/14/[address] [place], [place] [id number] Michelle Montana, MODESTA Registered Nurse Urology 05/07/17 Anh Costa APRN QUALITY ASSURANCE INSPECTOR Nurse Practitioner Nurse Practitioner 10/07 Martinez Galicia MD MD Ophthalmology 04/18/18 [address] [place] [address] Sabino Romano DPM MD Podiatry 08/11/18 [facility] [address] [phone] documented as of this encounter
--- OUTSIDE RECORDS SUMMARY | 2022-07-30 19:24 | XMS_ITS | Encounter Summary ---
:1945 Author Organization [facility] Address [address] [place] [address]. [place] [address] Care Team Providers Name Role Phone Lisseth Vang MD Primary Care Provider Carlota Landeros MD Unavailable Lisseth Vang MD Unavailable Michelle Montana RN Unavailable Anh Costa APRN DEVELOPMENTAL THERAPIST Unavailable Unavailable Martinez Galicia MD Unavailable Sabino Romano DPM Unavailable Encounter Details Date Type Department Care Team Description 06/01/2019 Travel Social History Tobacco Use Types Packs/Day [...] Office Visit Internal Medicine Margot Branham MD [address] [place] [address] (Wo rk) documented as of this encounter Visit Diagnoses Not on filedocumented in this encounter Additional Health Concerns Assessment Noted Time PHQ-9 Depression Total Score: 1 03/30/2018 7:10 AM CDT documented as of this encounter Care Teams Superintendent Horticulture Relationship Specialty Start Date End Date Lisseth Vang MD PCP - General 04/13/16 11/14/[address] [place] [address] Carlota Landeros MD MD Urology 04/10/[id number] [place], [place] [address] Lisseth Vang MD PCP Family Practice 03/30/16 11/14/[address] [place], [place] [phone] Michelle Montana, MODESTA Registered Nurse Urology 05/07/17 Anh Costa APRN DEVELOPMENTAL THERAPIST Nurse Practitioner Nurse Practitioner 10/07 Martinez Galicia MD MD Ophthalmology 04/18/18 [address] [place] [address] Sabino Romano DPM MD Podiatry 08/11/18 [facility] [address] [phone] documented as of this encounter
--- OUTSIDE RECORDS SUMMARY | 2022-07-30 19:24 | XMS_ITS | Encounter Summary ---
:1945 Author Organization [facility] Address [address] [place] [address]. [place] [address] Care Team Providers Name Role Phone Lisseth Vang MD Primary Care Provider Carlota Landeros MD Unavailable Lisseth Vang MD Unavailable Michelle Montana RN Unavailable Anh Costa APRN COLD HEADER Unavailable Unavailable Martinez Galicia MD Unavailable Sabino Romano DPM Unavailable Encounter Details Date Type Department Care Team Description 07/24/2019 Travel Social History Tobacco Use Types Packs/Day [...] Office Visit Internal Medicine Margot Branham MD [address] [place] [address] (Wo rk) documented as of this encounter Visit Diagnoses Not on filedocumented in this encounter Additional Health Concerns Assessment Noted Time PHQ-9 Depression Total Score: 1 03/30/2018 7:10 AM CDT documented as of this encounter Care Teams Forest Fire Prevention Manager Relationship Specialty Start Date End Date Lisseth Vang MD PCP - General 04/13/16 11/14/[address] [place] [address] Carlota Landeros MD MD Urology 04/10/[id number] [place], [place] [address] Lisseth Vang MD PCP Family Practice 03/30/16 11/14/[address] [place], [place] [phone] Michelle Montana, MODESTA Registered Nurse Urology 05/07/17 Anh Costa APRN COLD HEADER Nurse Practitioner Nurse Practitioner 10/07 Martinez Galicia MD MD Ophthalmology 04/18/18 [address] [place] [address] Sabino Romano DPM MD Podiatry 08/11/18 [facility] [address] [phone] documented as of this encounter
--- OUTSIDE RECORDS SUMMARY | 2022-07-30 19:24 | XMS_ITS | Encounter Summary ---
:1945 Author Organization [facility] Address [address] [place] [address]. [place] [address] Care Team Providers Name Role Phone Lisseth Vang MD Primary Care Provider Carlota Landeros MD Unavailable Lisseth Vang MD Unavailable Michelle Montana RN Unavailable Anh Costa APRN TECHNICAL BUSINESS SYSTEMS ANALYST Unavailable Unavailable Martinez Galicia MD Unavailable Sabino Romano DPM Unavailable Encounter Details Date Type Department Care Team Description 08/17/2019 Travel Social History Tobacco Use Types Packs/Day [...] Office Visit Internal Medicine Margot Branham MD [address] [place] [address] (Wo rk) documented as of this encounter Visit Diagnoses Not on filedocumented in this encounter Additional Health Concerns Assessment Noted Time PHQ-9 Depression Total Score: 0 08/17/2019 2:03 PM ELEMENTARY SPECIAL EDUCATION TEACHER documented as of this encounter Care Teams Department Clinician Relationship Specialty Start Date End Date Lisseth Vang MD PCP - General 04/13/16 11/14/[address] [place] [address] Carlota Landeros MD MD Urology 04/10/[address] [place], [place] [address] Lisseth Vang MD PCP Family Practice 03/30/16 11/14/[address] [place] [address] Michelle Montana, MODESTA Registered Nurse Urology 05/07/17 Anh Costa APRN TECHNICAL BUSINESS SYSTEMS ANALYST Nurse Practitioner Nurse Practitioner 10/07 Martinez Galicia MD MD Ophthalmology 04/18/18 [address] [place] [address] Sabino Romano DPM MD Podiatry 08/11/[address] [address] documented as of this encounter
--- OUTSIDE RECORDS SUMMARY | 2022-07-30 19:24 | XMS_ITS | Encounter Summary ---
:1945 Author Organization [place] Address [address] [facility] [place] [address] Care Team Providers Name Role Phone Lisseth Vang MD Primary Care Provider Carlota Landeros MD Unavailable Lisseth Vang MD Unavailable Michelle Montana RN Unavailable Anh Costa APRN ONCOLOGY ACCOUNT SPECIALIST Unavailable Unavailable Martinez Galicia MD Unavailable Sabino Romano DPM Unavailable Reason for Visit Reason Comments Wellness Visit Annual Visit Encounter Details Date Type Department Care Team Description 08/17/2019 Office Visit [facility], Annual phy sical exam (Primary Dx); [facility] MD Lisseth Left breast lump; [place] [address] Benign essential hypertensio n; [place] [facility] [address] Hyperlipidemia LDL goal <100 [facility] [place], [address]RD FLR,[address] [place] [address] [phone] [facility] (Work) [place], [place] [address] [phone] Social History Tobacco Use Types Packs/Day Years Used Date Smoking Tobacco: Never Smokeless Tobacco: Never Alcohol Use Standard Drinks/Week Comments Yes 0 (1 standard drink = 0.6 oz pure alcoho l) wine few times/wk Sex Assigned at Date Recorded Female 12/20/2018 4:10 PM CDT documented as of this encounter Last Filed Vital Signs Vital Sign Reading Time Taken Comments Blood Pressure 131/70 08/17/2019 2:01 PM ACCOUNTS PAYABLE MANAGER Pulse 72 08/17/2019 2:01 PM ACCOUNTS PAYABLE MANAGER Temperature - - Respiratory Rate - - Oxygen Saturation - - Inhaled Oxygen Concentration - - Weight 64.2 kg (141 lb 9.6 oz) 08/17/2019 2:01 PM ACCOUNTS PAYABLE MANAGER Height 167.6 cm (5' 6) 08/17/2019 2:01 PM ACCOUNTS PAYABLE MANAGER Body Mass Index 22.85 08/17/2019 2:01 PM ACCOUNTS PAYABLE MANAGER documented in this encounter Patient Instructions Patient InstructionsLisseth Vang MD - 08/17/2019 2:20 PM CST WHS: 1. KEY ATTENDANT: Ashli Alan, 2. Internal medicne Dr. Crabtree, 3. Family Medicine: Dr. Roberts SENIOR LIVING: 1. Dr. Jey Duke, 2. Dr. Guille Mckeon 3. ELEAZAR Hall Below are a few suggestions for a more integrated, holistic primary care practitioner. I am not sure if all takes insurance or if any are taking new patients. Manjula Bethea, PAUL, DNP: [facility] Ankita Hudson MD. [facility] Bertha Tan DO. [facility], internal medicine at [facility] in [place] Manjula Cohn, internal medicine at [facility] Salma Bandar, with [facility] Tete Agarwal at [facility] in [place] at [facility]. [facility] - doing integrative family medicine Selma Xiong at [facility] in [facility] [phone] Manjula Villafana with Mercedes Lowery [facility] Kendra Tidwell in [place]; [email or web address] Joie Jackson at [address] in [place] Barbie Smith at [facility] Parul Lockhart in at [facility] Sera Jed in the [place] [facility] Chayito Ruth DO, with [facility] Denise Wang at [facility] at [address] [place] [address] [facility] Maddie Turner at [facility] at [place] and [facility] Brigitte Orellana in [place]; [email or web address] Dr. Kori Gaming [facility] Dr. Sendy Sims, [[facility]] UNTS PAYABLE MANAGER documented in this encounter Progress Notes Lisseth Vang MD - 08/17/2019 2:20 PM CST SUBJECTIVE: Yamileth Sheikh is a 72 year old female who presents for Preventive Visit. Are you in the first 12 months of your Medicare Part B coverage? no Healthy Habits: ?? Do you get at least three servings of calcium containing foods daily (dairy, green leafy vegetables, etc.)? yes ?? Amount of exercise or daily activities, outside of work: limited ?? Problems taking medications regularly No ?? Medication side effects: No ?? Have you had an eye exam in the past two years? yes ?? Do you see a dentist twice per year? yes ?? Do you have sleep apnea, excessive snoring or daytime drowsiness?yes ?? Ability to successfully perform activities of daily living: Yes, no assistance needed ?? Home safety: none identified ?? Hearing impairment: wears hearing aids ?? Fall risk: none Concerns: Intentionally losing weight with the mediterranean and DASH diet - following with [facility] Wt Readings from Last 5 Encounters: 08/17/19 64.2 kg (141 lb 9.6 oz) 04/10/19 64.2 kg (141 lb 8 oz) 12/08/18 65.5 kg (144 lb 6.4 oz) 10/11/18 66.7 kg (147 lb) 10/10/18 66.7 kg (147 lb) - [place] Hyperlipidemia - on Crestor 5 mg Hypertension - Irbesartan 150 mg - Follows with anh Costa at the [facility] Shoulder Surgery: - April [address] Salazar at [facility] HCM: mammogram 04/2018 ; Colonoscopy 05/2016; PAST RADIO SPORTSCASTER HISTORY: 1 para 1 status post in 1978. Has uterine fibroids [De Dios]. Not on hormone therapy PAST MEDICAL HISTORY: 2) Osteoarthritis of the right hip Minimal invasive surgery 09/09. Shoulder surgery 2018. 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 Has a home in [facility]. HCM: mammogram 04/2018; colonoscopy 05/2015; Past Surgical History: Procedure Laterality Date ??? BREAST BIOPSY, RT/LT Breast Biopsy RT/LT ??? C TOTAL HIP ARTHROPLASTY Right 2005 right ??? C/SECTION, CLASSICAL 1978 , Classical [...] microwaved. Dr Baer ENT ??? uteroscopy 05/04/2018 Current Outpatient Medications Medication ??? amoxicillin (AMOXIL) 500 MG capsule ??? cholecalciferol (VITAMIN D3) 1000 UNIT tablet ??? ciclopirox (LOPROX) 0.77 % cream ??? Coenzyme Q10 (COQ-10) 100 MG CAPS ??? estradiol (ESTRACE VAGINAL) 0.1 MG/GM cream ??? estradiol (ESTRACE) 0.1 MG/GM vaginal cream ??? estradiol (ESTRING) 2 MG vaginal ring ??? hydrocortisone (ANUSOL-HC) 2.5 % cream ??? irbesartan (AVAPRO) 150 MG tablet ??? LYSINE PO ??? OTHER MEDICAL SUPPLIES ??? Probiotic Product (PROBIOTIC DAILY PO) ??? rosuvastatin (CRESTOR) 5 MG tablet ??? valACYclovir (VALTREX) 1000 mg tablet Tobacco Use ??? Smoking status: Never Smoker ??? Smokeless tobacco: Never Used Substance Use Topics ??? Alcohol use: Yes Comment: wine few times/wk If you drink alcohol do you typically have >3 drinks per day or >7 drinks per week? No Today's PHQ-2 Score: PHQ-2 (??1999 Pfizer) 07/24/2019 07/29/2018 Q1: Little interest or pleasure in doing things 0 0 Q2: Feeling down, depressed or hopeless 0 0 PHQ-2 Score 0 0 Do you feel safe in your environment - Yes Do you have a Health Care Directive?: Yes, advance care planning is on file. Current providers sharing in care for this patient include: Patient Care Team: Lisseth Vang MD as PCP - General Carlota Landeros MD as MD (Urology) Lisseth Vang MD as PCP (Family Practice) Michelle Montana, RN as Registered Nurse (Urology) Anh Costa APRN ONCOLOGY ACCOUNT SPECIALIST as Nurse Practitioner (Nurse Practitioner) Martinez Galicia MD as MD (Ophthalmology) Sabino Romano DPM as (Podiatry) Health Maintenance Topic Date Due ??? MEDICARE ANNUAL WELLNESS VISIT 03/29/2019 ??? FALL RISK ASSESSMENT 07/29/2019 ??? COLONOSCOPY 05/29/2020 ??? ADVANCE CARE PLANNING 04/21/2021 ??? MAMMO SCREENING 06/08/2021 ??? LIPID 04/10/2024 ??? DTAP/TDAP/TD IMMUNIZATION (4 - Td) 06/30/2027 ??? DEXA Completed ??? HEPATITIS C SCREENING Completed ??? PHQ-2 Completed ??? INFLUENZA VACCINE Completed ??? PNEUMOCOCCAL IMMUNIZATION 65+ LOW/MEDIUM RISK Completed ??? ZOSTER IMMUNIZATION Completed ??? IPV IMMUNIZATION Aged Out ??? MENINGITIS IMMUNIZATION Aged Out ROS: CONSTITUTIONAL: NEGATIVE for fever, chills, change in weight ENT/MOUTH: NEGATIVE for ear, mouth and throat problems RESP: NEGATIVE for significant cough or SOB CV: NEGATIVE for chest pain, palpitations or peripheral edema OBJECTIVE: BP 131/70 Pulse 72 Ht 1.676 m (5' 6) Wt 64.2 kg (141 lb 9.6 oz) BMI 22.85 kg/m?? Estimated body mass index is 22.85 kg/m?? as calculated from the following: Height as of this encounter: 1.676 m (5' 6). Weight as of this encounter: 64.2 kg (141 lb 9.6 oz). EXAM: GENERAL: healthy, alert and no distress EYES: Eyes grossly normal to inspection, PERRL and conjunctivae and sclerae normal HENT: ear canals and TM's normal, nose and mouth without ulcers or lesions NECK: no adenopathy, no asymmetry, masses, or scars and thyroid normal to palpation RESP: lungs clear to auscultation - no rales, rhonchi or wheezes BREAST: Breast reduction scars. In the left breast adjacent to the nipple in the upper outer quadrant is an area of fullness. No tenderness or nipple discharge and no palpable axillary masses or adenopathy CV: regular rate and rhythm, normal S1 S2, no S3 or S4, no murmur, click or rub, no peripheral edemaand peripheral pulses strong ABDOMEN: soft, nontender, no hepatosplenomegaly, no masses and bowel sounds normal : deferred MS: no gross musculoskeletal defects noted, no edema SKIN: no suspicious lesions or rashes NEURO: Normal strength and tone, mentation intact and speech normal PSYCH: mentation appears normal, affect normal/bright ASSESSMENT / PLAN: 1. Annual physical exam - No PAP/HPV needed given age > 65 2. Breast cancer screening - Mammogram due [last 04/2018]. Will complete at [facility] 3. Uterine leiomyoma, unspecified location - Exploratory surgery with the [facility] [06/2018]. Will continue to monitor 4. Hyperlipidemia, unspecified hyperlipidemia type - On Crestor 5 mg and mediterranean diet 5. Immunization - Shringrix series completed and flu shot completed 6. Osteoporosis - Will follow with [facility] for bone health Left breast lump/fullness - Advised MA Diagnostic Bilateral w/Winston rather than waiting until a September visit at [facility] End of Life Planning: Patient currently has an advanced directive: Yes. Practitioner is supportive of decision. COUNSELING: Reviewed preventive health counseling, as reflected in patient instructions Regular exercise Healthy diet/nutrition BP Readings from Last 1 Encounters: 04/10/19 122/70 Estimated body mass index is 22.84 kg/m?? as calculated from the following: Height as of 04/10/19: 1.676 m (5' 6). Weight as of 04/10/19: 64.2 kg (141 lb 8 oz). Weight management plan noted, stable and monitoring reports that she has never smoked. She has never used smokeless tobacco. Appropriate preventive services were discussed with this patient, including applicable screening as appropriate for cardiovascular disease, diabetes, osteopenia/osteoporosis, and glaucoma. As appropriate for age/gender, discussed screening for colorectal cancer, prostate cancer, breast cancer, and cervical cancer. Checklist reviewing preventive services available has been given to the patient. Reviewed patients plan of care and provided an AVS. The Basic Care Plan (routine screening as documented in Health Maintenance) for Yamileth meets the Care Plan requirement. This Care Plan has been established and reviewed with the Patient. Counseling Resources: ATP IV Guidelines Pooled Cohorts Equation Calculator Breast Cancer Risk Calculator FRAX Risk Assessment ICSI Preventive Guidelines Dietary Guidelines for Americans, 2009 USDA's MyPlate ASA Prophylaxis Lung CA Screening Lisseth Vang MD [facility] UNTS PAYABLE MANAGER documented in this encounter Nursing Notes Addison Martinez LPN - 08/17/2019 2:20 PM CST Chief Complaint Patient presents with ??? Wellness Visit ??? Annual Visit UNTS PAYABLE MANAGER documented in this encounter Plan of Treatment Upcoming Encounters Date Type Specialty Care Team Description 09/10/2022 Office Visit Internal Medicine LogeaMargot man MD [address] [address] (Wo rk) documented as of this encounter Results MA Diagnostic Bilateral w/Winston (09/05/2019 3:16 PM ACCOUNTS PAYABLE MANAGER) Anatomical Region Laterality Modality Breast Bilateral Mammography Specimen (Source) Anatomical Location Collection Method / Collectio n Time Received Time / Laterality Volume Impressions 09/05/2019 3:33 PM ACCOUNTS PAYABLE MANAGER IMPRESSION: BI-RADS CATEGORY: 1 - ??NEGATIVE. RECOMMENDED FOLLOW-UP: Annual Mammograph y. Clinical follow-up physician palpated ar ea of concern. ??Given lack of imaging findings in the left ??breast, m anagement would need to be based on clinical grounds. The patient was given the results of the examination. TYE MARTINEZ MD Narrative 09/05/2019 3:33 PM ACCOUNTS PAYABLE MANAGER Examination: Bilateral digital diagnostic mammography and digital [...] documented in this encounter Visit Diagnoses Diagnosis Annual physical exam - Primary Routine general medical examination at a health care facility Left breast lump Lump or mass in breast Benign essential hypertension Essential hypertension, benign Hyperlipidemia LDL goal <100 Other and unspecified hyperlipidemia Left breast lump Lump or mass in breast documented in this encounter Additional Health Concerns Assessment Noted Time PHQ-9 Depression Total Score: 0 08/17/2019 2:03 PM ACCOUNTS PAYABLE MANAGER documented as of this encounter Care Teams Concert Promoter Relationship Specialty Start Date End Date Lisseth Vang MD PCP - General 04/13/16 11/14/[address] [place], [place] [address] Carlota Landeros MD MD Urology 04/10/[address] [place], [place] [address] Lisseth Vang MD PCP Family Practice 03/30/16 11/14/[address] [place], [place] [address] Michelle Montana, RN Registered Nurse Urology 05/07/17 Anh Costa APRN ONCOLOGY ACCOUNT SPECIALIST Nurse Practitioner Nurse Practitioner 10/07 Martinez Galicia MD MD Ophthalmology 04/18/18 420 [place], [place] [address] Sabino Romano DPM MD Podiatry 08/11/[address] [phone] documented as of this encounter
--- OUTSIDE RECORDS SUMMARY | 2022-07-30 19:25 | XMS_ITS | Encounter Summary ---
:1945 Author Organization [place] Address [address] [place] [address]. [place] [address] Care Team Providers Name Role Phone Lisseth Vang MD Primary Care Provider Carlota Landeros MD Unavailable Lisseth Vang MD Unavailable Michelle Montana RN Unavailable Anh Costa APRN PIPE LINER Unavailable Unavailable Martinez Galicia MD Unavailable Sabino Romano DPM Unavailable Encounter Details Date Type Department Care Team Description 01/13/2019 Travel Social History Tobacco Use Types Packs/Day [...] Office Visit Internal Medicine Margot Branham MD [address] [place] [address] (Wo rk) documented as of this encounter Visit Diagnoses Not on filedocumented in this encounter Additional Health Concerns Assessment Noted Time PHQ-9 Depression Total Score: 1 03/30/2018 7:10 AM CDT documented as of this encounter Care Teams [employer] Relationship Specialty Start Date End Date Lisseth aVng MD PCP - General 04/13/16 11/14/[address] [place] [address] Carlota Landeros MD MD Urology 04/10/[address] [place], [place] [address] Lisseth Vang MD PCP Family Practice 03/30/16 11/14/[address] [place], [place] [phone] Michelle Montana, MODESTA Registered Nurse Urology 05/07/17 Anh Costa APRN PIPE LINER Nurse Practitioner Nurse Practitioner 10/07 Martinez Galicia MD MD Ophthalmology 04/18/18 420 [place] [address] Sabino Romano DPM MD Podiatry 08/11/18 [facility] [address] [address] documented as of this encounter
--- OUTSIDE RECORDS SUMMARY | 2022-07-30 19:25 | XMS_ITS | Encounter Summary ---
:1945 Author Organization [place] Address [address] [place] [address]. [place] [address] Care Team Providers Name Role Phone Lisseth Vang MD Primary Care Provider Carlota Landeros MD Unavailable Lisseth Vang MD Unavailable Michelle Montana RN Unavailable Anh Costa APRN MATHEMATICS EDUCATION PROFESSOR Unavailable Unavailable Martinez Galicia MD Unavailable Sabino Romano DPM Unavailable Encounter Details Date Type Department Care Team Description 02/[facility]2019 [facility] i, Nicolle , PT Urinary urgency; [place] JAN PETTY PFD (pelvic floor dysfunction) [address] [facility] S out [address] [facility] [address] [place] [address] [place] [address] [phone] Social History Tobacco Use Types Packs/Day Years [...] Visit Internal Medicine LogMargot sadler MD [address] [id number] (Wo rk) documented as of this encounter Procedures Procedure Name Priority Date/Time Associated Diagnosis Comme nts [facility] MANUAL THER Routine 02/22/2019 9:17 AM Urinary reten tion TECH,1+REGIONS,EA 15 MIN CDT Urinary urgency PFD (pelvic floor dysfunction) [facility] THERAPEUTIC Routine 02/22/2019 9:17 AM Urinary reten tion ACTIVITIES CDT Urinary urgency PFD (pelvic floor dysfunction) [facility] NEUROMUSCULAR Routine 02/22/2019 9:17 AM Urinary ret ention RE-EDUCATION CDT Urinary urgency PFD (pelvic floor dysfunction) documented in this encounter Visit Diagnoses Diagnosis Urinary retention - Primary Retention of urine, unspecified Urinary urgency Urgency of urination PFD (pelvic floor dysfunction) Pelvic muscle wasting documented in this encounter Additional Health Concerns Assessment Noted Time PHQ-9 Depression Total Score: 1 03/30/2018 7:10 AM CDT documented as of this encounter Care Teams Development Administrator Relationship Specialty Start Date End Date Lisseth Vang MD PCP - General 04/13/16 11/14/[address] [place], [place] [address] Carlota Landeros MD MD Urology 04/10/[address] [place] [address] Lisseth Vang MD PCP Family Practice 03/30/16 11/14/[address] [place] [address] Michelle Montana, MODESTA Registered Nurse Urology 05/07/17 Anh Costa APRN MATHEMATICS EDUCATION PROFESSOR Nurse Practitioner Nurse Practitioner 10/07 Martinez Galicia MD MD Ophthalmology 04/18/18 420 [place], [place] [address] Sabino Romano DPM MD Podiatry 08/11/[address] [place] [phone] documented as of this encounter
--- OUTSIDE RECORDS SUMMARY | 2022-07-30 19:25 | XMS_ITS | Encounter Summary ---
:1945 Author Organization [place] Address [address] [place] [address]. [place] [address] Care Team Providers Name Role Phone Lisseth Vang MD Primary Care Provider Carlota Landeros MD Unavailable Lisseth Vang MD Unavailable Michelle Montana RN Unavailable Anh Costa APRN BUSINESS IMPROVEMENT MANAGER Unavailable Unavailable Martinez Galicia MD Unavailable Reason for Visit Reason Comments Procedure turbinate reduction Encounter Details Date Type Department Care Team Description 07/29/2018 Office Visit [facility] Kendra Santillan Nasal congestion (Primary Dx); Throat MD Laurita Nasal turbinate hypertrophy [address] [place] [address] [id number] [phone] Social History Tobacco Use Types Packs/Day Years Used Date Smoking Tobacco: Never Smokeless Tobacco: Never Tobacco Cessation: Counseling Given: No Alcohol Use Standard Drinks/Week Comments Yes 0 (1 standard drink = 0.6 oz pure alcoho l) wine few times/wk Sex Assigned at Date Recorded Female 12/20/2018 4:10 PM CDT documented as of this encounter Patient Instructions Patient InstructionsMoJulio Cesar christopher RN - 07/29/2018 3:00 PM CDT Thank you for being seen in the ENT clinic with Dr. Santillan 1. If you have questions or concerns after your appointment, please call [phone]. Press option #1 for scheduling related needs. Press option #3 for nurse advice. 2. Plan to return to clinic in 6 weeks 3. Administer over the counter nasal irrigation 2-3 times per day 4. After your turbinate reduction, avoid strenuous activity for 24 hours and avoid blowing your nosefor 24 hours to limit the chance of a nose bleed. Julio Cesar Sykes RN [facility] ENT documented in this encounter Progress Notes Kendra Santillan MD - 07/29/2018 3:00 PM CDT PROCEDURE NOTE Pre-Procedure Diagnosis: Bilateral Inferior Turbinate Hypertrophy Post-Procedure Diagnosis: same Procedure: Bilateral radiofrequency turbinate reductions with submucosal cautery Surgeon: Kendra Santillan MD Anesthesia: local anesthesia with 1% lidocaine with epi 1:100,000 Estimated Blood Loss: minimal Specimens: none Indications: Patient presented to clinic with complaints of nasal congestion. Physical exam revealedpatient had Bilateral inferior turbinate hypertrophy. Hypertrophy and nasal congestion persist despite medical treatment with nasal steroid sprays. Findings: bilateral inferior turbinate hypertrophy Description: Written and informed consent was obtained prior to the procedure. A time-out was taken to identify the patient, procedure, and site. The turbinates were then numbed using topical 4% lidocaine. 1.5 mL of 1% lidocaine with epi was then injected into each turbinate. The radiofrequency probe was then gently inserted submucosally into each turbinate at a setting of 18. Two passes were made oneach side. The probe was then removed. Hemostasis was achieved with afrin pledgets. Patient had no sign of bleeding at the end of the procedure. Patient tolerated the procedure well. Assessment & Plan: Radiofrequency reductions of Bilateral inferior turbinates. - patient should avoid hard nose blowing for 24 hours - patient should irrigate nasal with saline BID for the next 1-2 weeks - pt counseled that they may feel more congested for 1-2 weeks after the treatment and that the fulleffect of treatment may not be felt until 4 weeks after procedure. - patient should return to clinic in 6-8 weeks for re-evaluation. documented in this encounter Nursing Notes Gerardo Hendricks LPN - 07/29/2018 3:00 PM CDT Chief Complaint Patient presents with ??? Procedure turbinate reduction Gerardo Hendricks LPN documented in this encounter Plan of Treatment Upcoming Encounters Date Type Specialty Care Team Description 09/10/2022 Office Visit Internal Medicine Margot Branham MD [address] [place] [address] (Wo rk) documented as of this encounter Procedures Procedure Name Priority Date/Time Associated Diagnosis Comme nts HC CAUTERY/ABLATION Routine 07/29/2018 3:46 PM Nasal con gestion TURBINATES, INTRAMURAL CDT Nasal turbinate hypertrophy documented in this encounter Visit Diagnoses Diagnosis Nasal congestion - Primary Other diseases of nasal cavity and sinus es Nasal turbinate hypertrophy Hypertrophy of nasal turbinates documented in this encounter Additional Health Concerns Assessment Noted Time PHQ-9 Depression Total Score: 1 03/30/2018 7:10 AM CDT documented as of this encounter Care Teams Gis Developer Relationship Specialty Start Date End Date Lisseth Vang MD PCP - General 04/13/16 11/14/[address] [place], [place] [address] Carlota Landeros MD MD Urology 04/10/[address] [place], [place] [address] Lisseth Vang MD PCP Family Practice 03/30/16 11/14/[address] [place], [place] [address] Michelle Montana, MODESTA Registered Nurse Urology 05/07/17 Anh Costa APRN BUSINESS IMPROVEMENT MANAGER Nurse Practitioner Nurse Practitioner 10/07 Martinez Galicia MD MD Ophthalmology 04/18/[address] [place] [address] documented as of this encounter
--- OUTSIDE RECORDS SUMMARY | 2022-07-30 19:25 | XMS_ITS | Encounter Summary ---
:1945 Author Organization [facility] Address [address] [place] [address]. [place] [address] Care Team Providers Name Role Phone Lisseth Vang MD Primary Care Provider Carlota Landeros MD Unavailable Lisseth Vang MD Unavailable Michelle Montana RN Unavailable Anh Costa APRN, CNP Unavailable Unavailable Martinez Galicia MD Unavailable Sabino Romano DPM Unavailable Reason for Visit Reason Onset Date Comments Medication Question 08/11/2018 Encounter Details Date Type Department Care Team Description 08/11/2018 Telephone [facility] for Anh Costa Med ication Question Cardiovascular Disease CLAUDIA MILLER [place] [phone] Social History Tobacco Use Types Packs/Day Years Used Date Smoking Tobacco: Never Smokeless Tobacco: Never Alcohol Use Standard Drinks/Week Comments Yes 0 (1 standard drink = 0.6 oz pure alcoho l) wine few times/wk Sex Assigned at Date Recorded Female 12/20/2018 4:10 PM CDT documented as of this encounter Miscellaneous Notes Telephone Encounter - Anh Costa APRN CNP - 08/11/2018 2:47 PM PATROL SUPERVISOR Message reply from Dr. Mcgregor concerning tinnitus and her current medications. No need to change medsas this is a common listed side effect for many medications. Patient did talk with a pharmacist who thought that maybe crestor would have less risk since less can be given. Since these are two different medications dosages are not comparable. Will consult with Dr. Villanueva since she would like to changeand he originally prescribed atorvastatin which she is tolerating well.. OL SUPERVISOR documented in this encounter Plan of Treatment Upcoming Encounters Date Type Specialty Care Team Description 09/10/2022 Office Visit Internal Medicine Margot Branham MD [address] [place] [address] [phone] (Wo rk) documented as of this encounter Visit Diagnoses Not on filedocumented in this encounter Additional Health Concerns Assessment Noted Time PHQ-9 Depression Total Score: 1 03/30/2018 7:10 AM CDT documented as of this encounter Care Teams Electric Lineman Relationship Specialty Start Date End Date Lisseth Vang MD PCP - General 04/13/16 11/14/[address] [place], [place] [address] Carlota Landeros MD MD Urology 04/10/[address] [place], [place] [phone] Lisseth Vang MD PCP Family Practice 03/30/16 11/14/[address] [place], [place] [phone] Michelle Montana, MODESTA Registered Nurse Urology 05/07/17 Anh Costa APRN CNP Nurse Practitioner Nurse Practitioner 10/07 Martinez Galicia MD MD Ophthalmology 04/18/18 [address] [place], [place] [phone] Sabino Romano DPM MD Podiatry 08/11/[address] [place] [phone] documented as of this encounter
--- OUTSIDE RECORDS SUMMARY | 2022-07-30 19:25 | XMS_ITS | Encounter Summary ---
:1945 Author Organization [facility] Address [address] [place] [address]. [place] [address] Care Team Providers Name Role Phone Lisseth Vang MD Primary Care Provider Carlota Landeros MD Unavailable Lisseth Vang MD Unavailable Michelle Montana RN Unavailable Anh Costa APRN AD OPERATIONS SPECIALIST Unavailable Unavailable Martinez Galicia MD Unavailable Reason for Visit Reason Comments Post Op (Ophthalmology) Both Eyes right eye CE/IOL , left eye CE/IOL 07-25-18 Encounter Details Date Type Department Care Team Description 08/09/2018 Office Visit [facility] Eye Martinez Galicia ophakia - Both Eyes (Primary Dx); Clinic - Latoya Pearson MD Fuchs' endothelial dystrophy - Both Eyes ; [facility] [address] [facility] Bilateral dry eyes [address] [address] [address]A [phone] [place], [place] (Work) [address] [phone] Social History Tobacco Use Types Packs/Day Years Used Date Smoking Tobacco: Never Smokeless Tobacco: Never Alcohol Use Standard Drinks/Week Comments Yes 0 (1 standard drink = 0.6 oz pure alcoho l) wine few times/wk Sex Assigned at Date Recorded Female 12/20/2018 4:10 PM CDT documented as of this encounter Patient Instructions Patient InstructionsBibi Mejia 08/09/2018 7:30 AM CST Future Appointments Date Time Provider Department [place] 08/12/2018 11:30 AM Agus Wu MD [facility] 08/15/2018 8:00 AM Sabino Romano DPM [facility] 09/05/2018 1:30 PM Anh Costa APRN CNP [facility] 08/15/2019 8:45 AM Martinez Galicia MD [facility] ERTIBLE SOFA BEDSPRING TESTER documented in this encounter Progress Notes Martinez Galicia MD - 08/09/2018 7:30 AM CST Assessment & Plan Yamileth Sheikh is a 72 year old female with the following diagnoses: 1. 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 Bilateral dry eyes Doing well Ok to resume normal activities Taper Predforte as directed Glasses prescription updated Artificial tears as needed Guttae right eye > left eye Asymptomatic Monitor annually Patient disposition: Return in about 1 year (around 08/09/2019) for DFE, pachy. Attending Physician Attestation: Complete documentation of historical [...] patient and family.. - Martinez Galicia MD ERTIBLE SOFA BEDSPRING TESTER documented in this encounter Nursing Notes Lisa Alcala COA - 08/09/2018 7:30 AM CST Chief Complaints and History of Present Illnesses Patient presents with ??? Post Op (Ophthalmology) Both Eyes right eye CE/IOL 07-18-18, left eye CE/IOL 07-25-18 HPI Affected eye(s): Both Symptoms: No decreased vision No floaters No flashes Glare (Comment: with rainy, dark streets - glare from lights make difficult to see the lintes on theroad) Duration: 3 weeks Frequency: Constant Do you have eye pain now?: No Comments: Pt here for POP both eyes CE/IOL Pt reports vision has been good - notes more colors/contrast after the surgery Ocular meds: Prednisolone every day in the right eye and BID in the left eye (on taper schedule) Lisa MILLS 7:53 AM August 09, 2018 ERTIBLE SOFA BEDSPRING TESTER documented in this encounter Plan of Treatment Upcoming Encounters Date Type Specialty Care Team Description 09/10/2022 Office Visit Internal Medicine LogeaisMargot MD [address] [place] [phone] (Wo rk) documented as of this encounter Visit Diagnoses Diagnosis Pseudophakia - Both Eyes - Primary Lens replaced by other means 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 Bilateral dry eyes Tear film insufficiency, unspecified documented in this encounter Additional Health Concerns Assessment Noted Time PHQ-9 Depression Total Score: 1 03/30/2018 7:10 AM CDT documented as of this encounter Care Teams Eligibility Technician Relationship Specialty Start Date End Date Lisseth Vang MD PCP - General 04/13/16 11/14/[address] [place], [place] [address] Carlota Landeros MD MD Urology 04/10/[address] [place], [place] [phone] Lisseth Vang MD PCP Family Practice 03/30/16 11/14/[address] [place], [place] [phone] Michelle Montana, RN Registered Nurse Urology 05/07/17 Anh Costa APRN AD OPERATIONS SPECIALIST Nurse Practitioner Nurse Practitioner 10/07 Martinez Galicia MD MD Ophthalmology 04/18/[address] [place] [phone] documented as of this encounter
--- OUTSIDE RECORDS SUMMARY | 2022-07-30 19:25 | XMS_ITS | Encounter Summary ---
:1945 Author Organization [facility] Address [address] [place] [address]. [place] [address] Care Team Providers Name Role Phone Lisseth Vang MD Primary Care Provider Carlota Landeros MD Unavailable Lisseth Vang MD Unavailable Michelle Montana RN Unavailable Anh Costa APRN PLAYER SERVICES REPRESENTATIVE Unavailable Unavailable Martinez Galicia MD Unavailable Sabino Romano DPM Unavailable Encounter Details Date Type Department Care Team Description 10/11/2018 Travel Social History Tobacco Use Types Packs/Day [...] Visit Internal Medicine Margot Branham MD [address] [place] [phone] (Wo rk) documented as of this encounter Visit Diagnoses Not on filedocumented in this encounter Additional Health Concerns Assessment Noted Time PHQ-9 Depression Total Score: 1 03/30/2018 7:10 AM CDT documented as of this encounter Care Teams Emergency Department Clinician Relationship Specialty Start Date End Date Lisseth Vang MD PCP - General 04/13/16 11/14/[address] [place] [address] Carlota Landeros MD MD Urology 04/10/[address] [place], [place] [address] Lisseth Vang MD PCP Family Practice 03/30/16 11/14/[address] [place], [place] [phone] Michelle Montana, MODESTA Registered Nurse Urology 05/07/17 Anh Costa APRN PLAYER SERVICES REPRESENTATIVE Nurse Practitioner Nurse Practitioner 10/07 Martinez Galicia MD MD Ophthalmology 04/18/18 [address] [place] [address] Sabino Romano DPM MD Podiatry 08/11/18 [facility] [address] [phone] documented as of this encounter
--- OUTSIDE RECORDS SUMMARY | 2022-07-30 19:25 | XMS_ITS | Encounter Summary ---
:1945 Author Organization [facility] Address [address] [place] [address]. [place] [address] Care Team Providers Name Role Phone Lisseth Vang MD Primary Care Provider Carlota Landeros MD Unavailable Lisseth Vang MD Unavailable Michelle Montana RN Unavailable Anh Costa APRN FUEL TECHNICIAN Unavailable Unavailable Martinez Galicia MD Unavailable Sabino Romano DPM Unavailable Reason for Visit Reason Onset Date Comments *-*INCOMING RECORDS*-* 12/08/2018 Encounter Details Date Type Department Care Team Description 12/08/2018 PRE VISIT M [facility] Colon and laura Cooper, *-*IN COMING RECORDS*-* Rectal Surgery Parul Devlin APRN [address] [facility] 4th Floor [address] [phone] [place], [place] [phone] (Wo rk) Social History Tobacco Use Types Packs/Day Years Used Date Smoking Tobacco: Never Smokeless Tobacco: Never Alcohol Use Standard Drinks/Week Comments Yes 0 (1 standard drink = 0.6 oz pure alcoho l) wine few times/wk Sex Assigned at Date Recorded Female 12/20/2018 4:10 PM CDT documented as of this encounter Miscellaneous Notes Telephone Encounter - Phyllis Lora - 12/06/2018 10:32 AM CST FUTURE VISIT INFORMATION FUTURE VISIT INFORMATION: ?? Date: 12/08/18 ?? Time: 7AM ?? Location: [facility] REFERRAL INFORMATION: ?? Referring provider: Self ?? Referring providers clinic: N/A ?? Reason for visit/diagnosis: Hemorrhoids NOTES STATUS DETAILS OFFICE NOTE from referring provider N/A OFFICE NOTE from other specialist Internal 05/02/12 DISCHARGE SUMMARY from hospital N/A DISCHARGE REPORT from the ER N/A OPERATIVE REPORT Care Everywhere MEDICATION LIST Internal LABS PFC TESTING N/A ANAL PAP N/A BIOPSIES/PATHOLOGY RELATED TO DIAGNOSIS N/A DIAGNOSTIC PROCEDURES COLONOSCOPY Care Everywhere 05/29/15 (and Media tab), 04/07/07 UPPER ENDOSCOPY (EGD) N/A FLEX SIGMOIDOSCOPY N/A ERCP N/A IMAGING (DISC & REPORT) CT N/A MRI N/A XRAY N/A ULTRASOUND (ENDOANAL/ENDORECTAL) N/A MAKER documented in this encounter Plan of Treatment Upcoming Encounters Date Type Specialty Care Team Description 09/10/2022 Office Visit Internal Medicine Margot Branham MD [address] [phone] (Wo rk) documented as of this encounter Visit Diagnoses Not on filedocumented in this encounter Additional Health Concerns Assessment Noted Time PHQ-9 Depression Total Score: 1 03/30/2018 7:10 AM CDT documented as of this encounter Care Teams Service Crew Leader Relationship Specialty Start Date End Date Lisseth Vang MD PCP - General 04/13/16 11/14/[address] [place], [place] [address] Carlota Landeros MD MD Urology 04/10/[address] [place], [place] [address] Lisseth Vang MD PCP Family Practice 03/30/16 11/14/[address] [place], [place] [address] Michelle Montana, RN Registered Nurse Urology 05/07/17 Anh Costa APRN FUEL TECHNICIAN Nurse Practitioner Nurse Practitioner 10/07 Martinez Galicia MD MD Ophthalmology 04/18/18 [address] [place] [address] Sabino Romano DPM MD Podiatry 08/11/[address] [place] [phone] documented as of this encounter
--- OUTSIDE RECORDS SUMMARY | 2022-07-30 19:25 | XMS_ITS | Encounter Summary ---
:1945 Author Organization [facility] Address [address] [place] [address]. [place] [address] Care Team Providers Name Role Phone Lisseth Vang MD Primary Care Provider Carlota Landeros MD Unavailable Lisseth Vang MD Unavailable Michelle Montana RN Unavailable Anh Costa APRN QUALITY ENG Unavailable Unavailable Martinez Galicia MD Unavailable Sabino Romano DPM Unavailable Reason for Visit Reason Comments RECHECK Encounter Details Date Type Department Care Team Description 10/11/2018 [facility] Visit [facility] Kendra Cali Nasal turbinate Throat MD Laurita hypertrophy (Primary 9 [facility] [address] Dx) 4th Floor [place], [place] [id number] [phone] Social History Tobacco Use Types Packs/Day Years [...] - Inhaled Oxygen Concentration - - Weight 66.7 kg (147 lb) 10/11/2018 4:11 PM HOT PATCHER Height 168.9 cm (5' 6.5) 10/11/2018 4:11 PM HOT PATCHER Body Mass Index 23.37 10/11/2018 4:11 PM HOT PATCHER documented in this encounter Patient Instructions Patient InstructionsAlonzo Butler EMT - 10/11/2018 4:15 PM CST Turbinate Reduction: A turbinate reduction done in clinic is completed under local anesthesia and radiofrequency is used to shrink the turbinates. This process can be slightly uncomfortable but not painful. Most patients do not experience any pain and return to work that day. POST TURBINATE REDUCTION-WHAT TO EXPECT -Avoid hard nose blowing for 24 hours. Gentle nose blowing for the next 48 hours. -Irrigate nasal with saline twice daily for the next 2-3 weeks. You can purchase this over the counter. 2 sprays each side. This can be purchased over the counter. Generic is okay-[facility] -You may feel more congested for 1-2 weeks after the treatment and that the full effect of the treatment may not be felt until 4 weeks after procedure. Please call our clinic for any questions,concerns,or worsening symptoms. Clinic #[phone] Option #3 for the triage nurse. PATCHER documented in this encounter Progress Notes Kendra Santillan MD - 10/11/2018 4:15 PM CST PROCEDURE NOTE Pre-Procedure Diagnosis: Residual right Inferior Turbinate Hypertrophy Post-Procedure Diagnosis: same Procedure: Right radiofrequency turbinate reduction with submucosal cautery Surgeon: Kendra Santillan MD Anesthesia: local anesthesia with 1% lidocaine with epi 1:100,000 Estimated Blood Loss: minimal Specimens: none Indications: Patient presented to clinic with complaints of nasal congestion. Physical exam revealedpatient had persistent Right inferior turbinate hypertrophy. Findings: residual right inferior turbinate reduction. Septum is deviated to the right. Left inferior turbinate is thin. Description: Written and informed consent was obtained prior to the procedure. A time-out was taken to identify the patient, procedure, and site. The right inferior turbinate was then numbed using topical 4% lidocaine. 1 mL of 1% lidocaine with epi was then injected into the right turbinate. The radiof requency probe was then gently inserted submucosally into each turbinate at a setting of 18. 3 passes made inferiorly and anteriorly. The probe was then removed. Hemostasis was achieved with afrin pledgets. Patient had no sign of bleeding at the end of the procedure. Patient tolerated the procedure well. PATCHER documented in this encounter Nursing Notes Alonzo Butler EMT - 10/11/2018 4:15 PM CST Chief Complaint Patient presents with ??? RECHECK Luke Rosado PATCHER documented in this encounter Plan of Treatment Upcoming Encounters Date Type Specialty Care Team Description 09/10/2022 Office Visit Internal Medicine LogeaMargot man MD [address] [phone] (Wo rk) documented as of this encounter Visit Diagnoses Diagnosis Nasal turbinate hypertrophy - Primary Hypertrophy of nasal turbinates documented in this encounter Additional Health Concerns Assessment Noted Time PHQ-9 Depression Total Score: 1 03/30/2018 7:10 AM CDT documented as of this encounter Care Teams Finished Metal Repairer Relationship Specialty Start Date End Date Lisseth Vang MD PCP - General 04/13/16 11/14/[address] [place], [place] [address] Carlota Landeros MD MD Urology 04/10/[address] [place], [place] [address] Lisseth Vang MD PCP Family Practice 03/30/16 11/14/[address] [place], [place] [address] Michelle Montana, MODESTA Registered Nurse Urology 05/07/17 Anh Costa APRN QUALITY ENG Nurse Practitioner Nurse Practitioner 10/07 Martinez Galicia MD MD Ophthalmology 04/18/18 [address] [place] [address] Sabino Romano DPM MD Podiatry 08/11/[address] [place] [phone] documented as of this encounter
--- OUTSIDE RECORDS SUMMARY | 2022-07-30 19:25 | XMS_ITS | Encounter Summary ---
:1945 Author Organization [facility] Address [address] [place] [address]. [place] [address] Care Team Providers Name Role Phone Lisseth Vang MD Primary Care Provider Carlota Landeros MD Unavailable Lisseth Vang MD Unavailable Michelle Montana RN Unavailable Anh Costa APRN OYSTER PREPARER Unavailable Unavailable Martinez Galicia MD Unavailable Sabino Romano DPM Unavailable Reason for Visit Reason Comments Sleep Study Follow up psg Encounter Details Date Type Department Care Team Description 08/12/2018 Office Visit [facility] Agus Wu MD Sleep disturbance Sleep [facility] [address] (Primary Dx) [address] [address] [place] [address] [place] [address] (Work) [phone] Social History Tobacco Use Types Packs/Day Years [...] Sign Reading Time Taken Comments Blood Pressure 128/77 08/12/2018 11:44 AM POLYSOMNOGRAPHIC TECHNICIAN Pulse 63 08/12/2018 11:44 AM POLYSOMNOGRAPHIC TECHNICIAN Temperature 36.7 ??C (98 ??F) 08/12/2018 11:43 AM POLYSOMNOGRAPHIC TECHNICIAN Respiratory Rate 16 08/12/2018 11:43 AM POLYSOMNOGRAPHIC TECHNICIAN Oxygen Saturation 96% 08/12/2018 11:44 AM POLYSOMNOGRAPHIC TECHNICIAN Inhaled Oxygen Concentration - - Weight 69.9 kg (154 lb) 08/12/2018 11:43 AM POLYSOMNOGRAPHIC TECHNICIAN Height 168.9 cm (5' 6.5) 08/12/2018 11:43 AM POLYSOMNOGRAPHIC TECHNICIAN Body Mass Index 24.48 08/12/2018 11:43 AM POLYSOMNOGRAPHIC TECHNICIAN documented in this encounter Patient Instructions Patient InstructionsLeeann Torres - 08/12/2018 11:30 AM CST Your BMI is Body mass index is 24.48 kg/(m^2). Weight management is a personal decision. If you are interested in exploring weight loss strategies,the following discussion covers the approaches that may be successful. Body mass index (BMI) is one way to tell whether you are at a healthy weight, overweight, or obese. It measures your weight in relation to your height. A BMI of 18.5 to 24.9 is in the healthy range. A person with a BMI of 25 to 29.9 is considered overweight, and someone with a BMI of 30 or greater is considered obese. More than two-thirds of [place] adults are considered overweight or obese. Being overweight or obese increases the risk for further weight gain. Excess weight may lead to heart disease and diabetes. Creating and following plans for healthy eating and physical activity may help you improve your health. Weight control is part of healthy lifestyle and includes exercise, emotional health, and healthy eating habits. Careful eating habits lifelong are the mainstay of weight control. Though there are significant health benefits from weight loss, long-term weight loss with diet alone may be very difficult to achieve- studies show long-term success with dietary management in less than 10% of people. Attaining a healthy weight may be especially difficult to achieve in those with severe obesity. In some cases, medications, devices and surgical management might be considered. What can you do? If you are overweight or obese and are interested in methods for weight loss, you should discuss this with your provider. ??? Consider reducing daily calorie intake by 500 calories. ??? Keep a food journal. ??? Avoiding skipping meals, consider cutting portions instead. Diet combined with exercise helps maintain muscle while optimizing fat loss. Strength training is particularly important for building and maintaining muscle mass. Exercise helps reduce stress, increaseenergy, and improves fitness. Increasing exercise without diet control, however, may not burn enoughcalories to loose weight. ??? Start walking three days a week 10-20 minutes at a time ??? Work towards walking thirty minutes five days a week ??? Eventually, increase the speed of your walking for 1-2 minutes at time In addition, we recommend that you review healthy lifestyles and methods for weight loss available through the National Institutes of Health patient information sites: http://win.niddk.nih.gov/publications/index.htm And look into health and wellness programs that may be available through your health insurance provider, employer, local community center, or [employer]. SOMNOGRAPHIC TECHNICIAN documented in this encounter Progress Notes Agus Wu MD - 08/12/2018 11:30 AM CST Sleep Study Follow-Up Visit: Date on this visit: 08/12/2018 Yamileth Sheikh comes in today for follow-up of her sleep study done on 06/19/2018 at the [facility] for possible sleep apnea. Sleep latency 16 minutes without Ambien. REM achieved. REM latency 67 minutes. Sleep efficiency 77.3%. Total sleep time 348.5 minutes. Sleep architecture: Stage 1, 1.6% (5%), stage 2, 52.2% (45-55%), stage 3, 24% (15-20%), stage REM, 22% (20-25%). AHI was 1.0, without significant desaturations. RDI 1.4. REM AHI 4.7, consistent with noREM CHELSEA. Supine AHI -, consistent with no SUPINE CHELSEA. Periodic Limb Movement Index 0.9/hour. These findings were reviewed with patient. Past medical/surgical history, family history, social history, medications and allergies were reviewed. Problem List: Patient Active Problem List Diagnosis Date Noted [...] Muscle weakness 10/07/2012 Priority: Medium ??? Mixed incontinence 10/07/2012 Priority: Medium ??? Hypertension 08/15/2012 Priority: Medium ??? Osteopenia 08/15/2012 Priority: Medium ??? Atrophic vaginitis 08/15/2012 Priority: Medium ??? Hemorrhoids 05/02/2012 Priority: Medium ??? Anal fissure 05/02/2012 Priority: Medium ??? Tinnitus of both ears 04/21/2012 Priority: Medium ??? Urinary retention 04/02/2011 Priority: Medium ??? Urgency of urination 04/02/2011 Priority: Medium ??? CARDIOVASCULAR SCREENING; LDL GOAL LESS THAN 130 08/03/2010 Priority: Medium ??? Elevated blood pressure reading without diagnosis of hypertension 09/23/2009 Priority: Medium Impression/Plan: 1. Sleep study is negative for sleep apnea - Patient doesnot have sleep apnea or movement abnormalities. Sleep architecture was fairly unremarkable. Patient was reassured regarding absence of sleep apnea or other sleep fragmenting conditions. Fifteen minutes spent with patient, all of which were spent [id number] counseling, consulting, coordinating plan of care. Dr. Agus Wu CC: Lisseth Vang SOMNOGRAPHIC TECHNICIAN documented in this encounter Nursing Notes Leeann Torres - 08/12/2018 11:30 AM CST Chief Complaint Patient presents with ??? Sleep Study Follow up psg Initial BP 128/77 Pulse 63 Temp 98 ??F (36.7 ??C) (Oral) Resp 16 Ht 1.689 m (5' 6.5) Wt 69.9 kg (154 lb) SpO2 96% BMI 24.48 kg/m2 Estimated body mass index is 24.48 kg/(m^2) as calculated from the following: Height as of this encounter: 1.689 m (5' 6.5). Weight as of this encounter: 69.9 kg (154 lb). Medication Reconciliation: nnamdi Torres MA SOMNOGRAPHIC TECHNICIAN documented in this encounter Plan of Treatment Upcoming Encounters Date Type Specialty Care Team Description 09/10/2022 Office Visit Internal Medicine LogMargot sadler MD [address] [place] [address] [phone] (Wo rk) documented as of this encounter Visit Diagnoses Diagnosis Sleep disturbance - Primary Sleep disturbance, unspecified documented in this encounter Additional Health Concerns Assessment Noted Time PHQ-9 Depression Total Score: 1 03/30/2018 7:10 AM CDT documented as of this encounter Care Teams Global Compensation Director Relationship Specialty Start Date End Date Lisseth Vang MD PCP - General 04/13/16 11/14/[address] [place], [place] [address] Carlota Landeros MD MD Urology 04/10/[address] [place], [place] [address] Lisseth Vang MD PCP Family Practice 03/30/16 11/14/[address] [place], [place] [phone] Michelle Montana, RN Registered Nurse Urology 05/07/17 Anh Costa APRN OYSTER PREPARER Nurse Practitioner Nurse Practitioner 10/07 Martinez Galicia MD MD Ophthalmology 04/18/18 [address] [place] [address] Sabino Romano DPM MD Podiatry 08/11/[address] [place] [phone] documented as of this encounter
--- OUTSIDE RECORDS SUMMARY | 2022-07-30 19:25 | XMS_ITS | Encounter Summary ---
:1945 Author Organization [facility] Address [address] [place] [address]. [place] [address] Care Team Providers Name Role Phone Lisseth Vang MD Primary Care Provider Carlota Landeros MD Unavailable Lisseth Vang MD Unavailable Michelle Montana RN Unavailable Anh Costa APRN SUPERVISING LAW ENFORCEMENT ANALYST Unavailable Unavailable Martinez Galicia MD Unavailable Sabino Romano DPM Unavailable Encounter Details Date Type Department Care Team Description 12/06/2018 Travel Social History Tobacco Use Types Packs/Day [...] Visit Internal Medicine Margot Branham MD [address] [place] [address] (Wo rk) documented as of this encounter Visit Diagnoses Not on filedocumented in this encounter Additional Health Concerns Assessment Noted Time PHQ-9 Depression Total Score: 1 03/30/2018 7:10 AM CDT documented as of this encounter Care Teams Money Counter Relationship Specialty Start Date End Date Lisseth Vang MD PCP - General 04/13/16 11/14/[address] [place] [address] Carlota Landeros MD MD Urology 04/10/[address] [place], [place] [address] Lisseth Vang MD PCP Family Practice 03/30/16 11/14/[address] [place], [place] [phone] Michelle Montana, MODESTA Registered Nurse Urology 05/07/17 Anh Costa APRN SUPERVISING LAW ENFORCEMENT ANALYST Nurse Practitioner Nurse Practitioner 10/07 Martinez Galicia MD MD Ophthalmology 04/18/18 [address] [place] [address] Sabino Romano DPM MD Podiatry 08/11/18 [facility] [address] [phone] documented as of this encounter
--- OUTSIDE RECORDS SUMMARY | 2022-07-30 19:25 | XMS_ITS | Encounter Summary ---
:1945 Author Organization [facility] Address [address] [place] [address]. [place] [address] Care Team Providers Name Role Phone Lisseth Vang MD Primary Care Provider Carlota Landeros MD Unavailable Lisseth Vang MD Unavailable Michelle Montana RN Unavailable Anh Costa APRN, CNP Unavailable Unavailable Martinez Galicia MD Unavailable Sabino Romano DPM Unavailable Reason for Visit Reason Onset Date Comments Refill Request 01/31/2019 Alternative Requeste d - irbesartan (AVAPRO) 150 MG tablet is on back order Encounter Details Date Type Department Care Team Description 01/31/2019 Refill [facility] Anh Costa, Refill Request Clinic [facility] CLAUDIA MILLER (Alternative Requested - [address] [place] [address] irbesartan (AVAPRO) 150 [place], [place] MG tablet is on back [id number] order) [phone] Social History Tobacco Use Types Packs/Day Years [...] Visit Internal Medicine [place], MD Margot [address] [phone] (Wo rk) documented as of this encounter Visit Diagnoses Diagnosis Essential hypertension Unspecified essential hypertension documented in this encounter Additional Health Concerns Assessment Noted Time PHQ-9 Depression Total Score: 1 03/30/2018 7:10 AM CDT documented as of this encounter Care Teams Power Grader Operator Relationship Specialty Start Date End Date Lisseth Vang MD PCP - General 04/13/16 11/14/[address] [place], [place] [address] Carlota Landeros MD MD Urology 04/10/[address] [place], [place] [address] Lisseth Vang MD PCP Family Practice 03/30/16 11/14/[address] [place], [place] [address] Michelle Montana RN Registered Nurse Urology 05/07/17 Anh Costa APRN VAN CDL DRIVER Nurse Practitioner Nurse Practitioner 10/07 Martinez Galicia MD MD Ophthalmology 04/18/18 [address] [place], [place] [address] Sabino Romano DPM MD Podiatry 08/11/[address] [place] [phone] documented as of this encounter
--- OUTSIDE RECORDS SUMMARY | 2022-07-30 19:25 | XMS_ITS | Encounter Summary ---
:1945 Author Organization [facility] Address [address] [place] [address]. [place] [address] Care Team Providers Name Role Phone Lisseth Vang MD Primary Care Provider Carlota Landeros MD Unavailable Lisseth Vang MD Unavailable Michelle Montana RN Unavailable Anh Costa APRN RAT BREEDER Unavailable Unavailable Martinez Galicia MD Unavailable Sabino Romano DPM Unavailable Encounter Details Date Type Department Care Team Description 09/22/2018 Travel Social History Tobacco Use Types Packs/Day [...] Visit Internal Medicine Margot Branham MD [address] [place] [address] (Wo rk) documented as of this encounter Visit Diagnoses Not on filedocumented in this encounter Additional Health Concerns Assessment Noted Time PHQ-9 Depression Total Score: 1 03/30/2018 7:10 AM CDT documented as of this encounter Care Teams Middle School History Teacher Relationship Specialty Start Date End Date Lisseth Vang MD PCP - General 04/13/16 11/14/[address] [place] [address] Carlota Landeros MD MD Urology 04/10/[address] [place], [place] [address] Lisseth Vang MD PCP Family Practice 03/30/16 11/14/[address] [place], [place] [phone] Michelle Montana, MODESTA Registered Nurse Urology 05/07/17 Anh Costa APRN RAT BREEDER Nurse Practitioner Nurse Practitioner 10/07 Martinez Galicia MD MD Ophthalmology 04/18/18 [address] [place] [address] Sabino Romano DPM MD Podiatry 08/11/18 [facility] [address] [phone] documented as of this encounter
--- OUTSIDE RECORDS SUMMARY | 2022-07-30 19:25 | XMS_ITS | Encounter Summary ---
:1945 Author Organization [facility] Address [address] [place] [address]. [place] [address] Care Team Providers Name Role Phone Lisseth Vang MD Primary Care Provider Carlota Landeros MD Unavailable Lisseth Vang MD Unavailable Michelle Montana RN Unavailable Anh Costa APRN NAVIGATION OFFICER Unavailable Unavailable Martinez Galicia MD Unavailable Sabino Romano DPM Unavailable Encounter Details Date Type Department Care Team Description [facility], [place] , PT Mixed stress and urge urinary incontinen ce; [place] JAN PETTY PFD (pelvic floor dysfunction) [address] [facility] S out [address] [facility] [address] [place] [address] [place] [address] [phone] Social History Tobacco Use Types Packs/Day Years [...] Visit Internal Medicine Margot Branham MD [address] [address] (Wo rk) documented as of this encounter Procedures Procedure Name Priority Date/Time Associated Diagnosis Comme nts [facility] MANUAL THER Routine 02/01/2019 3:30 PM Urinary urgen cy TECH,1+REGIONS,EA 15 MIN CDT Mixed stress and urge urinary incontin ence PFD (pelvic floor dysfunction) Z THERAPEUTIC Routine 02/01/2019 3:30 PM Urinary urgen cy ACTIVITIES CDT Mixed stress and urge urinary incontin ence PFD (pelvic floor dysfunction) Z NEUROMUSCULAR Routine 02/01/2019 3:30 PM Urinary urg ency RE-EDUCATION CDT Mixed stress and urge urinary incontin ence PFD (pelvic floor dysfunction) documented in this encounter Visit Diagnoses Diagnosis Urinary urgency - Primary Urgency of urination Mixed stress and urge urinary incontinen ce Mixed incontinence urge and stress (male )(female) PFD (pelvic floor dysfunction) Pelvic muscle wasting documented in this encounter Additional Health Concerns Assessment Noted Time PHQ-9 Depression Total Score: 1 03/30/2018 7:10 AM CDT documented as of this encounter Care Teams Aircraft Engineer Relationship Specialty Start Date End Date Lisseth Vang MD PCP - General 04/13/16 11/14/[address] [place], [place] [address] Carlota Landeros MD MD Urology 04/10/[address] [place], [place] [address] iLsseth Vang MD PCP Family Practice 03/30/16 11/14/[address] [place], [place] [address] Michelle Montana, MODESTA Registered Nurse Urology 05/07/17 Anh Costa APRN NAVIGATION OFFICER Nurse Practitioner Nurse Practitioner 10/07 Martinez Galicia MD MD Ophthalmology 04/18/[address] [place] [address] Sabino Romano DPM MD Podiatry 08/11/[address] [place] [phone] documented as of this encounter
--- OUTSIDE RECORDS SUMMARY | 2022-07-30 19:25 | XMS_ITS | Encounter Summary ---
:1945 Author Organization [facility] Address [address] [place] [address]. [place] [address] Care Team Providers Name Role Phone Lisseth Vang MD Primary Care Provider Carlota Landeros MD Unavailable Lisseth Vang MD Unavailable Michelle Montana RN Unavailable Anh Costa APRN PHOTOGRAPHIC EQUIPMENT TECHNICIAN Unavailable Unavailable Martinez Galicia MD Unavailable Sabino Romano DPM Unavailable Reason for Visit Reason Onset Date Comments Clinic Care Coordination - Follow-up 08/24/2018 Ros uvastatin Prescription Encounter Details Date Type Department Care Team Description 08/24/2018 Telephone [facility] Damian Villanueva Clini c [facility] Mateo OLIVEROS Coordination - [address] [place] [address] Follow-up (Rosuvastatin [place], [place] [address] Prescription) [id number] [place], [place] [phone] (Wo rk) Social History Tobacco Use Types Packs/Day Years Used Date Smoking Tobacco: Never Smokeless Tobacco: Never Alcohol Use Standard Drinks/Week Comments Yes 0 (1 standard drink = 0.6 oz pure alcoho l) wine few times/wk Sex Assigned at Date Recorded Female 12/20/2018 4:10 PM CDT documented as of this encounter Miscellaneous Notes Telephone Encounter - Zonia Morrissey LPN - 08/24/2018 10:53 AM CST Date: 08/24/2018 Time of Call: 10:54 AM Diagnosis: Hyperlipidemia [ TORB ] Ordering provider: Dr Damian Villanueva Order: Start Rosuvastatin 5 mg every day. Order received by: Zonia Morrissey LPN Follow-up/additional notes: Per Dr Villanueva note. Pt called and recommendations discussed. Order placed. Pt verbalized understanding, agreed to current plan and denied any further questions. CULTURIST Telephone Encounter - Zonia Morrissey LPN - 08/24/2018 10:44 AM CST ----- Message from Damian Villanueva MD sent at 08/11/2018 11:25 PM SERICULTURIST ----- Regarding: FW: change atorvastatin 10 to crestor 5 No problem Thanks DD ----- Message ----- From: Anh Costa APRN [facility] Sent: 08/11/2018 1:41 PM To: Damian Villanueva MD Subject: change atorvastatin [address] Villanueva: pharmacist told her less tinnitus possible with crestor 5 mg. Do you care if we change? Thanks Anh CULTURIST documented in this encounter Plan of Treatment Upcoming Encounters Date Type Specialty Care Team Description 09/10/2022 Office Visit Internal Medicine Margot Branham MD [address] [place] [address] [phone] (Wo rk) documented as of this encounter Visit Diagnoses Diagnosis Hyperlipidemia LDL goal <100 - Primary Other and unspecified hyperlipidemia documented in this encounter Additional Health Concerns Assessment Noted Time PHQ-9 Depression Total Score: 1 03/30/2018 7:10 AM CDT documented as of this encounter Care Teams Elementary Special Education Teacher Relationship Specialty Start Date End Date Lisseth Vang MD PCP - General 04/13/16 11/14/[address] [facility] [address] [place], [place] [address] Carlota Landeros MD MD Urology 04/10/[address] [place] [address] Lisseth Vang MD PCP Family Practice 03/30/16 11/14/[address] [place] [address] Michelle Montana, MODESTA Registered Nurse Urology 05/07/17 Anh Costa APRN PHOTOGRAPHIC EQUIPMENT TECHNICIAN Nurse Practitioner Nurse Practitioner 10/07 Martinez Galicia MD MD Ophthalmology 04/18/18 [address] [place] [address] Sabino Romano DPM MD Podiatry 08/11/[address] [place] [phone] documented as of this encounter
--- OUTSIDE RECORDS SUMMARY | 2022-07-30 19:25 | XMS_ITS | Encounter Summary ---
:1945 Author Organization [facility] Address [address] [place] [address]. [place] [address] Care Team Providers Name Role Phone Lisseth Vang MD Primary Care Provider Carlota Landeros MD Unavailable Lisseth Vang MD Unavailable Michelle Montana RN Unavailable Anh Costa APRN WARP SPLITTER Unavailable Unavailable Martinez Galicia MD Unavailable Reason for Visit Reason Onset Date Comments Patient Request 07/27/2018 post op symptoms Encounter Details Date Type Department Care Team Description 07/27/2018 Telephone [facility] Martinez Galicia Patient Request (post [address] MD Lili op symptoms) [address] [place] [phone] (Wo rk) Social History Tobacco Use Types Packs/Day Years Used Date Smoking Tobacco: Never Smokeless Tobacco: Never Alcohol Use Standard Drinks/Week Comments Yes 0 (1 standard drink = 0.6 oz pure alcoho l) wine few times/wk Sex Assigned at Date Recorded Female 12/20/2018 4:10 PM CDT documented as of this encounter Miscellaneous Notes Telephone Encounter - Jey Ribeiro RN - 07/27/2018 3:22 PM CDT New yellow discharge right eye One glob yesterday and one glob today S/p right eye catarct surgery last week Pt done with antibiotic drops No redness No itching No photophobia Vision stable No artificial tear use past 2 days per pt Reviewed would not recommend restarting antibiotic drops based on symptoms Recommended starting artificial tears (Preservative free recommended) Monitor for any worsening or new symptoms and/or eye pain Pt verbally demonstrated understanding and seemed comfortable with plan Note to dr. Galicia for review and amendment if applicable Jey Ribeiro RN 3:29 PM 07/27/18 Telephone Encounter - Elda Rodriguez - 07/27/2018 3:08 PM CDT [facility] Call Center Phone Message May a detailed message be left on voicemail: yes Reason for Call: Other: Patient reports yellow pus coming from R eye, started yesterday. Please callto discuss. Post op. Action Taken: Message routed to: [facility] darryl documented in this encounter Plan of Treatment Upcoming Encounters Date Type Specialty Care Team Description 09/10/2022 Office Visit Internal Medicine LogeaMargot man MD [address] [phone] (Wo rk) documented as of this encounter Visit Diagnoses Not on filedocumented in this encounter Additional Health Concerns Assessment Noted Time PHQ-9 Depression Total Score: 1 03/30/2018 7:10 AM CDT documented as of this encounter Care Teams Laboratory Apparatus Glass Grinder Relationship Specialty Start Date End Date Lisseth Vang MD PCP - General 04/13/16 11/14/[address] [place], [place] [address] Carlota Landeros MD MD Urology 04/10/[address] [place], [place] [address] Lisseth Vnag MD PCP Family Practice 03/30/16 11/14/[address] [place] [address] Michelle Montana, MODESTA Registered Nurse Urology 05/07/17 Anh Costa APRN WARP SPLITTER Nurse Practitioner Nurse Practitioner 10/07 Martinez Galicia MD MD Ophthalmology 04/18/[address] [place] [address] documented as of this encounter
--- OUTSIDE RECORDS SUMMARY | 2022-07-30 19:25 | XMS_ITS | Encounter Summary ---
:1945 Author Organization [facility] Address [address] [place] [address]. [place] [address] Care Team Providers Name Role Phone Lisseth Vang MD Primary Care Provider Carlota Landeros MD Unavailable Lisseth Vang MD Unavailable Michelle Montana RN Unavailable Anh Costa APRN ROLL GRINDER OPERATOR Unavailable Unavailable Martinez Galicia MD Unavailable Sabino Romano DPM Unavailable Reason for Visit J[facility] Physical Therapy - Closed Specialty Diagnoses / Procedures Referred By Contact Refer red To Contact Diagnoses [place] [address] [place], [place] [address] Referral ID Status Reason Start Date Expiration Date Visits Requ ested Visits Authorized [id number] Closed 12/21/2018 12/21/2019 1 1 Encounter Details Date Type Department Care Team Description 01/19/2019 Therapy Visit [facility] [place] [address] [place] [address] Mixed stress and urge urinary incontinen ce (Primary Dx); Rehabilitation Services Nicolle Brandon, PT [place] [address] [place], [place] [phone] Urinary urgency; [place] PFD (pelvic floor dysfunctio n) [address] [address] [place] [address] Social History Tobacco Use Types Packs/Day Years Used Date Smoking Tobacco: Never Smokeless Tobacco: Never Alcohol Use Standard Drinks/Week Comments Yes 0 (1 standard drink = 0.6 oz pure alcoho l) wine few times/wk Sex Assigned at Date Recorded Female 12/20/2018 4:10 PM CDT documented as of this encounter Progress Notes Nicolle Brandon, PT - 01/19/2019 7:25 AM CDT [facility] Initial Evaluation Subjective: The history is provided by the patient. Patient is a 73 year female who presents to [facility] with mixed urinary incontinence. Patient states she has a Medtronic stimulator placed internal to help with bladder emptying due to the fact that she hadsome urinary retention. Patient states overall this unit has been helpful with her condition. Patient states she is eager to relearn how to help herself with good pelvic floor awareness so her problem does not worsen with time. Patient does not complain of pain at rest and states that her overall health is good. Patient reports past surgical history includes: Right total hip replacement, Medtronic bladder stimulator, breast reduction, , and DNC. PMH includes: In addition to above includes HBP. 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 History of current episode: Onset date/MD order: 12/21/2018 MD order. CC/Present symptoms: mixed urinary incontinence Pain rating (0-10): 0/10 Conditioning is improving/unchanging/worsening: Unchanging Pelvic/Abdominal Surgeries: See above Current occupation: Retired teacher Current activity: somewhat active Goals: To be aware of how to do pelvic floor exercises correctly Red flags: none Urination: Do you leak on the way to the bathroom or with a strong urge to void? Yes Do you leak with cough,sneeze, jumping, running?Yes Any other activities that cause leaking? Yes Do you have triggers that make you feel you can't wait to go to the bathroom? Yes What are they? When standing up from sitting and passing a bathroom Type of pad and number used per day? 0 When you leak what is the amount? small How long can you delay the need to urinate? 3 - 10 minutes. Do you feel excessive pressure in pelvic floor:No Frequency of daytime urination: Unsure Frequency of nighttime urination:2 or more Can you stop the flow of urine when on the toilet? Depends Is the volume of urine passed usually: average. (8sec rule= 250ml with average bladder storing 400-600ml) Do you strain to pass urine? No Do you have a slow or hesitant urinary stream? Yes Do you have difficulty initiating the urine stream? No Is urination painful? No How many bladder infections have you had in last 12 months?0 Fluid intake(one glass is 8oz or one cup) 6 glasses/day, 1 caffinated glasses/day 2 alcohol glasses/day. Bowel habits: Frequency of bowel movements? 1 times a day Consistancy of stool? soft formed, [place] Stool Scale 3 Do you ignore the urge to defecate? No Do you strain to pass stool? No Pelvic Pain: Do you have any pelvic pain with intercourse, exams, use of tampons? No Are you sexually active?No Have you ever been worried for your physical safety? No Have you practiced the PF(kegel) exercises for 4 or more weeks? Yes Marinoff Scale:Level NA (Level 3: Abstinence from intercourse because of severe pain. Level 2: Painful intercourse which limites frequency of activity. Level 1: Painful intercourse not severe enough to prevent activity.) Treatment/Education provided this session (see flow sheet for additional information): Self Care Management/Patient education (12 min): Today's session consisted of education regarding pelvic floor muscle anatomy, normal bladder function, urge suppression techniques and/or relaxation techniques as indicated, and instruction in how to complete a bladder diary for assessment next visit. De pending on patient presentation, timed voids, double voids, and proper fluid/fiber intake discussed.Pt was instructed in the pathoanatomy of the pelvic floor utilizing pelvic model. We discussed what pelvic floor physical therapy is, components of exam, and typical patient progression. Prior to internal PFM exam, patient was told that they were in control of exam progression, and if at any time wereuncomfortable and wished to discontinue we would. NMR (12 min): Patient instruction in correct isolation of PFM/TrA then coordinated contraction of canister muscles: diaphragm, Transverse Abdominals, PFM, and posterior spine musculature. Educated ininitiating contraction from anal sphinctor, elevating through PFM, contraction of TrA, while exhaling slowly. Cued for maximal and sub-maximal contractions, using hip rotators and adductors for overflow if needed. Pt required cuing for each progression, with decreasing feedback as tolerated. Instructed to avoid Valsalva/increased inter- abdominal pressure. Pt cued through verbal, tactile (internal andexternal), and visual cuing utilizing biofeedback. For HEP, pt encouraged to separate each phase of the exercise, then work towards coordination of the phases together with good breath technique with goal of developing good neuromuscular control of area. NMR pelvic pain (12 min): Pt education regarding contributing factors to pelvic pain and dysfunctionrelated to overactivity in the pelvic floor. Included resources for relaxed awareness and pelvic floor quieting techniqes. Extra time spent describing pelvic floor muscle exam and treatment plan/goals,with attention to potential history that may contribute to current symptoms. Included resources for home release techniques using dilators and/or thera wand as indicated. Recommended partner involvement if available. Discussed in detail potential physiological and behavioral components of pelvic pain. Demonstrated/performed techniques for input to painful area while using visualization and relaxation. Objective: System Pelvic Dysfunction Evaluation: Bladder/Pelvic Problems: Mixed urinary incontinence. Storage Problem: Mixed incontinence Emptying Problem: Hesitancy Flexibility: Tightness present at:Adductors; Iliopsoas; Hamstrings; Piriformis and Gluteals obturator internus Abdominal Wall: Abdominal wall pelvic: Fascial restrictions noted about small and large intestines and bladder. Restrictions noted of pubovesical ligament and urachus. Trigger Points: Iliopsoas Scar Mobility: WNL scar Pelvic Clock Exam: Ischiocavernosis pain: +/- Bulbocavernosis pain: +/- Transverse Perineal: +/- Levator ANI: +/- Perineal Body: +/- SI Provocation: NA Reflex Testing: NA External Assessment: Skin Condition: Normal Scars: Well healed Bearing Down/Coughing: Normal Tissue Symmetry: Normal Introitus: Normal Muscle Contraction/Perineal Mobility: Slight lift, no urogential triangle descent Internal Assessment: Internal assessment pelvic: Moderate MFR noted bilaterally of levator ani muscle group. Sensory Exam: Normal Contraction/Grade: Weak squeeze, 2 second hold (2) Accessory Muscle use-Gluteals: Yes SEMG Biofeedback: Equipment: Surface EMG Suraface electrode placement--Perianal: Bridget anal Baseline EMG Abdominals: Resting baseline 2.8uV Peak pelvic muscle contraction: Average quick flick 4.8uV Sustained contraction: Average 10 second hold 8.5uV EMG interpretation to fatigue: 3-5 seconds Position: SupineAdditional History: Delivery History: Number of Pregnancies: 1 Number of Live Births: 1 Caffeine Consumption: 1 General ROS Assessment/Plan: Patient is a 73 year old female with pelvic complaints. Patient has the following significant findings with corresponding treatment plan. Diagnosis 1: Mixed urinary incontinence Decreased strength - therapeutic exercise, therapeutic activities and home program Impaired muscle performance - biofeedback, neuro re-education and home program Decreased function - therapeutic activities and home program Diagnosis 2: Pelvic floor dysfunction Decreased strength - therapeutic exercise, therapeutic activities Impaired muscle performance - biofeedback, neuro re-education and home program Decreased function - therapeutic activities and home program Therapy Evaluation Codes: 1) History comprised of: Personal factors that impact the plan of care: None. Comorbidity factors that impact the plan of care are: Bowel/bladder changes, High blood pressure and Implanted device. Medications impacting care: High blood pressure. 2) Examination of Body Systems comprised of: Body structures and functions that impact the plan of care: Lumbar spine and Pelvis. Activity limitations that impact the plan of care are: Stress incontinence, Urge incontinence and Urinary incontinence. 3) Clinical presentation characteristics are: Stable/Uncomplicated. 4) Decision-Making Low complexity using standardized patient assessment instrument and/or measureable assessment of functional outcome. Cumulative Therapy Evaluation is: Low complexity. Previous and current functional limitations: (See Goal Flow Sheet for this information) Short term and MCC goals: (See Goal Flow Sheet for this [...] 1 X week, once daily Duration: for 12 weeks Discharge Plan: Achieve all LTG. Independent in home treatment program. Reach maximal therapeutic benefit. Please refer to the daily flowsheet for treatment today, total treatment time and time spent performing 1:1 timed codes. documented in this encounter Plan of Treatment Upcoming Encounters Date Type Specialty Care Team Description 09/10/2022 Office Visit Internal Medicine Margot [place] MD [address] [id number] (Wo rk) documented as of this encounter Procedures Procedure Name Priority Date/Time Associated Diagnosis Comme nts Z MANUAL THER Routine 01/19/2019 2:08 PM Urinary urgen cy TECH,1+REGIONS,EA 15 MIN CDT Mixed stress and urge urinary incontin ence PFD (pelvic floor dysfunction) ZZC THERAPEUTIC Routine 01/19/2019 2:08 PM Urinary urgen cy ACTIVITIES CDT Mixed stress and urge urinary incontin ence PFD (pelvic floor dysfunction) Z NEUROMUSCULAR Routine 01/19/2019 2:08 PM Urinary urg ency RE-EDUCATION CDT Mixed stress and urge urinary incontin ence PFD (pelvic floor dysfunction) documented in this encounter Visit Diagnoses Diagnosis Mixed stress and urge urinary incontinen ce - Primary Mixed incontinence urge and stress (male )(female) Urinary urgency Urgency of urination PFD (pelvic floor dysfunction) Pelvic muscle wasting documented in this encounter Additional Health Concerns Assessment Noted Time PHQ-9 Depression Total Score: 1 03/30/2018 7:10 AM CDT documented as of this encounter Care Teams Compliance Aide Relationship Specialty Start Date End Date Lisseth Vang MD PCP - General 04/13/16 11/14/[address] [place], [place] [address] Carlota Landeros MD MD Urology 04/10/[address] [place], [place] [address] Lisseth Vang MD PCP Family Practice 03/30/16 11/14/[address] [place], [place] [address] Michelle Montana, RN Registered Nurse Urology 05/07/17 Anh Costa APRN ROLL GRINDER OPERATOR Nurse Practitioner Nurse Practitioner 10/07 Martinez Galicia MD MD Ophthalmology 04/18/18 [address] [place] [address] Sabino Romano DPM MD Podiatry 08/11/[address] [place] [phone] documented as of this encounter
--- OUTSIDE RECORDS SUMMARY | 2022-07-30 19:25 | XMS_ITS | Encounter Summary ---
:1945 Author Organization [facility] Address [address] [place] [address]. [place] [address] Care Team Providers Name Role Phone Lisseth Vang MD Primary Care Provider Carlota Landeros MD Unavailable Lisseth Vang MD Unavailable Michelle Montana RN Unavailable Anh Costa APRN RESORT DESK CLERK Unavailable Unavailable Martinez Galicia MD Unavailable Sabino Romano DPM Unavailable Reason for Visit Reason Comments RECHECK Encounter Details Date Type Department Care Team Description 09/22/2018 Office Visit [facility], Kendra Cali Nasal congestion Throat MD Laurita (Primary Dx) [address] [place] [address] [address] [place], [place] [phone] Social History Tobacco Use Types Packs/Day Years Used Date Smoking Tobacco: Never Smokeless Tobacco: Never Alcohol Use Standard Drinks/Week Comments Yes 0 (1 standard drink = 0.6 oz pure alcoho l) wine few times/wk Sex Assigned at Date Recorded Female 12/20/2018 4:10 PM CDT documented as of this encounter Last Filed Vital Signs Vital Sign Reading Time Taken Comments Blood Pressure 130/70 09/22/2018 9:51 AM BATTERY INSPECTOR Pulse - - Temperature - - Respiratory Rate - - Oxygen Saturation - - Inhaled Oxygen Concentration - - Weight 68 kg (150 lb) 09/22/2018 9:51 AM BATTERY INSPECTOR Height 168.9 cm (5' 6.5) 09/22/2018 9:51 AM BATTERY INSPECTOR Body Mass Index 23.85 09/22/2018 9:51 AM BATTERY INSPECTOR documented in this encounter Progress Notes Kendra Santillan MD - 09/22/2018 9:45 AM CST CC: Right nasal congestion at night HPI: Patient underwent a repeat turbinate reduction in clinic on July 29, 2018. Patient previously had one done by Dr. Brewer. She reports that she does have improvement in her nasal breathing duringthe day. However at night she feels the right side will still close up and she is wondering if thereis anything that can be done to improve this. PE: GEN: nad NOSE: patient has a slight septal deviation to the right. Turbinates are thin. The mucosa appears healthy. A/P: Patient presents with nasal congestion at night. I think this is likely due to the fact that her septum is slightly shifted over to the right and narrows her nasal cavity on the right side compared to her left side. I do not think a septoplasty is warranted in this particular instance though. Patient has difficulty sleeping her left side due to her hip discomfort. I do not think there is much else that can be done to improve this. She could use head of bed elevation. She may follow-up as needed. I spent a total of 15 minutes [id number] with Yamileth Sheikh during today's office visit. Over50% of this time was spent counseling the patient on and/or coordinating care as documented in my assessment and plan. ERY INSPECTOR documented in this encounter Nursing Notes Alonzo Butler EMT - 09/22/2018 9:45 AM CST Chief Complaint Patient presents with ??? RECHECK Luke Rosado ERY INSPECTOR documented in this encounter Plan of Treatment Upcoming Encounters Date Type Specialty Care Team Description 09/10/2022 Office Visit Internal Medicine LogeaMargot man MD [address] [place] [place] [phone] (Wo rk) documented as of this encounter Visit Diagnoses Diagnosis Nasal congestion - Primary Other diseases of nasal cavity and sinus es documented in this encounter Additional Health Concerns Assessment Noted Time PHQ-9 Depression Total Score: 1 03/30/2018 7:10 AM CDT documented as of this encounter Care Teams Groundhand Relationship Specialty Start Date End Date Lisseth Vang MD PCP - General 04/13/16 11/14/[address] [place], [place] [address] Carlota Landeros MD MD Urology 04/10/[address] [place] [address] Lisseth Vang MD PCP Family Practice 03/30/16 11/14/[address] [place], [place] [phone] Michelle Montana, RN Registered Nurse Urology 05/07/17 Anh Costa APRN RESORT DESK CLERK Nurse Practitioner Nurse Practitioner 10/07 Martinez Galicia MD MD Ophthalmology 04/18/18 [address] [place], [place] [address] Sabino Romano DPM MD Podiatry 08/11/[address] [place] [phone] documented as of this encounter
--- OUTSIDE RECORDS SUMMARY | 2022-07-30 19:25 | XMS_ITS | Encounter Summary ---
:1945 Author Organization [facility] Address [address] [place] [address]. [place] [address] Care Team Providers Name Role Phone Lisseth Vang MD Primary Care Provider Carlota Landeros MD Unavailable Lisseth Vang MD Unavailable Michelle Montana RN Unavailable Anh Costa APRN RAILROAD SIGNAL TECHNICIAN Unavailable Unavailable Mratinez Galicia MD Unavailable Sabino Romano DPM Unavailable Encounter Details Date Type Department Care Team Description [facility] i, Nicolle , PT Mixed stress and urge urinary incontinen ce; [place] PFD (pelvic floor dysfunction) [address] [facility] [address] [facility] [address] [place] [address] [place] [address] [phone] Social History Tobacco Use Types Packs/Day Years [...] Visit Internal Medicine Margot Branham MD [address] [address] (Wo rk) documented as of this encounter Procedures Procedure Name Priority Date/Time Associated Diagnosis Comme nts [facility] MANUAL THER Routine 02/08/2019 4:13 PM Urinary urgen cy TECH,1+REGIONS,EA 15 MIN CDT Mixed stress and urge urinary incontin ence PFD (pelvic floor dysfunction) ZZ THERAPEUTIC Routine 02/08/2019 4:13 PM Urinary urgen cy ACTIVITIES CDT Mixed stress and urge urinary incontin ence PFD (pelvic floor dysfunction) Z NEUROMUSCULAR Routine 02/08/2019 4:13 PM Urinary urg ency RE-EDUCATION CDT Mixed [...] documented as of this encounter Care Teams Scrap Crane Operator Relationship Specialty Start Date End Date Lisseth Vang MD PCP - General 04/13/16 11/14/[address] [place], [place] [address] Carlota Landeros MD MD Urology 04/10/[address] [place], [place] [address] Lisseth Vang MD PCP Family Practice 03/30/16 11/14/[address] [place], [place] [address] Michelle Montana, MODESTA Registered Nurse Urology 05/07/17 Anh Costa APRN RAILROAD SIGNAL TECHNICIAN Nurse Practitioner Nurse Practitioner 10/07 Martinez Galicia MD MD Ophthalmology 04/18/[address] [place] [id number] Sabino Romano DPM MD Podiatry 08/11/[address] [place] [phone] documented as of this encounter
--- OUTSIDE RECORDS SUMMARY | 2022-07-30 19:25 | XMS_ITS | Encounter Summary ---
:1945 Author Organization [facility] Address [address] [place] [address]. [place] [address] Care Team Providers Name Role Phone Lisseth Vang MD Primary Care Provider Carlota Landeros MD Unavailable Lisseth Vang MD Unavailable Michelle Montana RN Unavailable nAh Costa APRN MANAGER SUPPLY CHAIN PLANNING Unavailable Unavailable Martinez Galicia MD Unavailable Reason for Visit Reason Comments Post Op (Ophthalmology) Left Eye CE/IOL 07-25-18 Encounter Details Date Type Department Care Team Description 07/25/2018 Office Visit [facility] Martinez Galicia Postoperative eye state (Primary Dx); Ophthalmology MD Lili Nuclear sclerotic cataract of both eyes [address] [phone] Social History Tobacco Use Types Packs/Day Years Used Date Smoking Tobacco: Never Smokeless Tobacco: Never Alcohol Use Standard Drinks/Week Comments Yes 0 (1 standard drink = 0.6 oz pure alcoho l) wine few times/wk Sex Assigned at Date Recorded Female 12/20/2018 4:10 PM CDT documented as of this encounter Progress Notes Martinez Galicia MD - 07/25/2018 1:45 PM CDT #1 Pseudophakia, left eye, day 1 Doing well Keep patch in place at night for 5 days Start post-operative drops and taper according to instructions Post-operative do's and don'ts reviewed, questions answered Recheck on 08/09/18 for post-op follow-up with refraction Ermias Russell MD on 07/25/2018 at 1:42 PM Opthalmology Resident, PGY-2 Pager: [phone] Attending Physician Attestation: Complete documentation of historical [...] patient and family.. - Martinez Galicia MD documented in this encounter Nursing Notes Lisa Alcala COA - 07/25/2018 1:45 PM CDT Chief Complaints and History of Present Illnesses Patient presents with ??? Post Op (Ophthalmology) Left Eye CE/IOL 07-25-18 HPI Affected eye(s): Left Symptoms: Foreign body sensation Duration: 1 day Frequency: Constant Do you have eye pain now?: No Comments: Pt here for same day POP (left eye CE/IOL 07-25-18) Shield in place Pt notes some slight irritation in the left eye, but no pain Pt will need new Rx's for POP drops (didn't get any today) Lisa [place] 1:17 PM July 25, 2018 documented in this encounter Miscellaneous Notes Addendum Note - Martinez Galicia MD - 07/25/2018 2:02 PM CDT Addended by: MARTINEZ GALICIA on: 07/25/2018 02:02 PM Modules accepted: Orders documented in this encounter Plan of Treatment Upcoming Encounters Date Type Specialty Care Team Description 09/10/2022 Office Visit Internal Medicine Margot [place] MD [address] [facility] [address] [place] [address] (Wo rk) documented as of this encounter Visit Diagnoses Diagnosis Postoperative eye state - Primary Other states following surgery of eye an d adnexa 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 documented in this encounter Additional Health Concerns Assessment Noted Time PHQ-9 Depression Total Score: 1 03/30/2018 7:10 AM CDT documented as of this encounter Care Teams Celery Packer Relationship Specialty Start Date End Date Lisseth Vang MD PCP - General 04/13/16 11/14/[address] [place], [place] [address] Carlota Landeros MD MD Urology 04/10/[address] [place], [place] [address] Lisseth Vang MD PCP Family Practice 03/30/16 11/14/[address] [place], [place] [phone] Michelle Montana, MODESTA Registered Nurse Urology 05/07/17 Anh Costa APRN MANAGER SUPPLY CHAIN PLANNING Nurse Practitioner Nurse Practitioner 10/07 Martinez Galicia MD MD Ophthalmology 04/18/18 [address] [place], [place] [address] documented as of this encounter
--- OUTSIDE RECORDS SUMMARY | 2022-07-30 19:25 | XMS_ITS | Encounter Summary ---
:1945 Author Organization [facility] Address [address] [place] [address]. [place] [address] Care Team Providers Name Role Phone Lisseth Vang MD Primary Care Provider Carlota Landeros MD Unavailable Lisseth Vang MD Unavailable Michelle Montana RN Unavailable Anh Costa APRN OVERHEAD DOOR TECHNICIAN Unavailable Unavailable Martinez Galicia MD Unavailable Sabino Romano DPM Unavailable Encounter Details Date Type Department Care Team Description 12/08/2018 Travel Social History Tobacco Use Types Packs/Day [...] Office Visit Internal Medicine Margot Branham MD [address] [place] [id number] (Wo rk) documented as of this encounter Visit Diagnoses Not on filedocumented in this encounter Additional Health Concerns Assessment Noted Time PHQ-9 Depression Total Score: 1 03/30/2018 7:10 AM CDT documented as of this encounter Care Teams Metal Drilling Machine Operator Relationship Specialty Start Date End Date Lisseth Vang MD PCP - General 04/13/16 11/14/[address] [place] [address] Carlota Landeros MD MD Urology 04/10/[address] [place], [place] [phone] Lisseth Vang MD PCP Family Practice 03/30/16 11/14/[address] [place], [place] [phone] Michelle Montana, MODESTA Registered Nurse Urology 05/07/17 Anh Costa APRN OVERHEAD DOOR TECHNICIAN Nurse Practitioner Nurse Practitioner 10/07 Martinez Galicia MD MD Ophthalmology 04/18/18 [address] [place] [address] Sabino Romano DPM MD Podiatry 08/11/18 [facility] [phone] documented as of this encounter
--- OUTSIDE RECORDS SUMMARY | 2022-07-30 19:25 | XMS_ITS | Encounter Summary ---
:1945 Author Organization [facility] Address [address] [place] [address]. [place] [address] Care Team Providers Name Role Phone Lisseth Vang MD Primary Care Provider Carlota Landeros MD Unavailable Lisseth Vang MD Unavailable Michelle Montana RN Unavailable Anh Costa APRN MARKET MANAGER Unavailable Unavailable Martinez Galicia MD Unavailable Sabino Romano DPM Unavailable Kyle Roberts MD Primary Care Provider Mehreen Johnston MD PhD Unavailable [phone] LogeaMargot man MD Unavailable Martinez Galicia MD Unavailable LogMargot sadler MD Unavailable LogMargot sadler MD Primary Care Provider Levy Hussein MD Unavailable Alonso Tejeda MD Unavailable Reason for Visit Reason Onset Date Comments Appointment 10/06/2018 Patient is calling sukh lopez appointment on 10/20 for the procedure Encounter Details Date Type Department Care Team Description 10/06/2018 Telephone [facility] Ear Nose and HsKendra wetzel Appointment (Patient Throat MD Laurita is calling regarding 9 [facility] [address] appointment on 10/20 [address] [place] [address] for the procedure ) [place], [place] [phone] (Wo rk) [phone] Social History Tobacco Use Types Packs/Day Years Used Date Smoking Tobacco: Never Smokeless Tobacco: Never Alcohol Use Standard Drinks/Week Comments Yes 0 (1 standard drink = 0.6 oz pure alcoho l) wine few times/wk Sex Assigned at Date Recorded Female 12/20/2018 4:10 PM CDT documented as of this encounter Miscellaneous Notes Telephone Encounter - Colleen Hernandez - 10/06/2018 2:33 PM CST [facility] Call Center Phone Message May a detailed message be left on voicemail: yes Reason for Call: Other: Patient is calling in regarding her procedure for 10/20 she stated she spokewith Alonzo and she can come in at an earlier time and day. Please follow up with the patient to reschedule this appointment. Thank you. Action Taken: Message routed to: [facility] ent L COUNSEL documented in this encounter Plan of Treatment Upcoming Encounters Date Type Specialty Care Team Description 09/10/2022 Office Visit Internal Medicine Margot Branham MD [address] [phone] (Wo rk) documented as of this encounter Visit Diagnoses Not on filedocumented in this encounter Additional Health Concerns Assessment Noted Time PHQ-9 Depression Total Score: 1 03/30/2018 7:10 AM CDT documented as of this encounter Care Teams Program Officer Relationship Specialty Start Date End Date Lisseth Vang PCP - General 04/13/16 11/14/[address] [place], [place] [phone] Kyle Roberts MD PCP - General Family Practice 11/15/19 10/27/[address] [place], [place] [phone] Margot Branham MD PCP - General Internal Medicine 10/28/[address] [place] [phone] Carlota Landeros MD MD Urology 04/10/[address] [place], [place] [phone] Lisseth Vang, JAMAR Family Practice 03/30/[address] [place], [place] [phone] Michelle Montana, RN Registered Nurse Urology 05/07/17 Anh Costa APRN Nurse Practitioner Nurse Practitioner 10/07/17 MARKET MANAGER Martinez Galicia MD Ophthalmology 04/18/[address] [place] [phone] Sabino Romano DPM MD Podiatry 08/11/18 [facility] [address] [phone] Mehreen Johnston MD Family Practice 11/15/19 MD PhD [address] [place] [phone] Margot Branham MD MD Internal Medicine 04/17/[address] [place] [address] [phone] Martinez Galicia, Assigned Surgical 07/26/20 MD Provider [address] [place] [phone] Margot Branham MD Assigned PCP 09/15/[address] [address] Levy Hussein MD Assigned Surgical 03/23/21 06/14/21 9 [facility] Provider [place], [place] [phone] Alonso Tejeda MD MD Internal Medicine 06/19/[address] [place] [address] documented as of this encounter
--- OUTSIDE RECORDS SUMMARY | 2022-07-30 19:25 | XMS_ITS | Encounter Summary ---
:1945 Author Organization [place] Address [facility] [place] [address] Care Team Providers Name Role Phone Lisseth Vang MD Primary Care Provider Carlota Landeros MD Unavailable Lisseth Vang MD Unavailable Michelle Montana RN Unavailable Anh Costa APRN COUGAR HUNTER Unavailable Unavailable Martinez Galicia MD Unavailable Sabino Romano DPM Unavailable Reason for Visit Reason Onset Date Comments Refill Request 11/21/2018 Encounter Details Date Type Department Care Team Description 11/21/2018 Refill [facility] Nurse, Alyssa walker s Refill Request [place] [address] [facility] [address],[place] [address] [place] [phone] Social History Tobacco Use Types Packs/Day Years Used Date Smoking Tobacco: Never Smokeless Tobacco: Never Alcohol Use Standard Drinks/Week Comments Yes 0 (1 standard drink = 0.6 oz pure alcoho l) wine few times/wk Sex Assigned at Date Recorded Female 12/20/2018 4:10 PM CDT documented as of this encounter Miscellaneous Notes Telephone Encounter - Margot Tucker RN - 11/21/2018 10:01 AM CST Ramona calling for Anusol refill. She saw Dr Vang in clinic 07/21,refill sent per protocol. She also wanted some advice about what she can use since having trouble using tub to soak her bottom, recommended try sitz bath that she could put in toilet,Pt indicated understanding and agreed with plan. GER LABOR RELATIONS documented in this encounter Plan of Treatment Upcoming Encounters Date Type Specialty Care Team Description 09/10/2022 Office Visit Internal Medicine Margot Branham MD [address] [place] [address] (Wo rk) documented as of this encounter Visit Diagnoses Diagnosis External hemorrhoids External hemorrhoids without mention of complication documented in this encounter Additional Health Concerns Assessment Noted Time PHQ-9 Depression Total Score: 1 03/30/2018 7:10 AM CDT documented as of this encounter Care Teams Rn Otolaryngology Relationship Specialty Start Date End Date Lisseth Vang MD PCP - General 04/13/16 11/14/[address] [place], [place] [phone] Carlota Landeros MD MD Urology 04/10/[address] [place], [place] [address] Lisseth Vang MD PCP Family Practice 03/30/16 11/14/[address] [place], [place] [address] Michelle Montana, MODESTA Registered Nurse Urology 05/07/17 Anh Costa APRN COUGAR HUNTER Nurse Practitioner Nurse Practitioner 10/07 Martinez Galicia MD MD Ophthalmology 04/18/18 [address] [place], [place] [phone] Sabino Romano DPM MD Podiatry 08/11/[address] [place] [phone] documented as of this encounter
--- OUTSIDE RECORDS SUMMARY | 2022-07-30 19:25 | XMS_ITS | Encounter Summary ---
:1945 Author Organization [facility] Address [address] [place] [address]. [place] [address] Care Team Providers Name Role Phone Lisseth Vang MD Primary Care Provider Carlota Landeros MD Unavailable Lisseth Vang MD Unavailable Michelle Montana RN Unavailable Anh Costa APRN ACUTE CARE ASSISTANT Unavailable Unavailable Martinez Galicia MD Unavailable Sabino Romano DPM Unavailable Reason for Visit Reason Onset Date Comments New Onc Intake 12/14/2018 Internal Referral Encounter Details Date Type Department Care Team Description 12/14/2018 [facility] Lisy Neff New Onc Intake [facility] JOE Walton (Internal Referral) [address] [place] [phone] Social History Tobacco Use Types Packs/Day Years Used Date Smoking Tobacco: Never Smokeless Tobacco: Never Alcohol Use Standard Drinks/Week Comments Yes 0 (1 standard drink = 0.6 oz pure alcoho l) wine few times/wk Sex Assigned at Date Recorded Female 12/20/2018 4:10 PM CDT documented as of this encounter Miscellaneous Notes Telephone Encounter - Anthony Paulsoni - 12/14/2018 1:50 PM CDT ONCOLOGY INTAKE: Records Information APPT INFORMATION: Referring provider: Roberto Cooper Referring provider???s clinic: [facility] Reason for visit/diagnosis: Genetics Were the records received with the referral (via Rightfax)? NO - Internal Referral Has patient been seen for any external appt for this diagnosis (enter clinic/location)? Per PT - Records in Epic ADDITIONAL INFORMATION: NA documented in this encounter Plan of Treatment Upcoming Encounters Date Type Specialty Care Team Description 09/10/2022 Office Visit Internal Medicine Margot Branham MD [address] [phone] (Wo rk) documented as of this encounter Visit Diagnoses Not on filedocumented in this encounter Additional Health Concerns Assessment Noted Time PHQ-9 Depression Total Score: 1 03/30/2018 7:10 AM CDT documented as of this encounter Care Teams Reading Efficiency Course Director Relationship Specialty Start Date End Date Lisseth Vang MD PCP - General 04/13/16 11/14/[address] [place], [place] [address] Carlota Landeros MD MD Urology 04/10/[address] [place] [address] Lisseth Vang MD PCP Family Practice 03/30/16 11/14/[address] [place], [place] [phone] Michelle Montana, MODESTA Registered Nurse Urology 05/07/17 Anh Costa APRN ACUTE CARE ASSISTANT Nurse Practitioner Nurse Practitioner 10/07 Martinez Galicia MD MD Ophthalmology 04/18/18 [address] [place], [place] [address] Sabino Romano DPM MD Podiatry 08/11/[address] [place] [phone] documented as of this encounter
--- OUTSIDE RECORDS SUMMARY | 2022-07-30 19:25 | XMS_ITS | Encounter Summary ---
:1945 Author Organization [facility] Address [address] [place] [address]. [place] [address] Care Team Providers Name Role Phone Lisseth Vang MD Primary Care Provider Carlota Landeros MD Unavailable Lisseth Vang MD Unavailable Michelle Montana RN Unavailable Anh Costa APRN MARKETING EDUCATION TEACHER Unavailable Unavailable Martinez Galicai MD Unavailable Encounter Details Date Type Department Care Team Description 07/25/2018 Surgery [facility] Surgery and Martinez Galicia Phacoemulsification Procedure Center MD Lili with Intraocular Lens [address] [place] [address] [phone] Surgery Details Date/Time Status Location OR Service Patient Class Case Case Trauma Class Type Case? 07/25/18 Posted OR OR Ophthalmology Outpatient 10:15 AM Panel 1 Procedure LRB Anes Op Region Wound Class Commen ts Left Eye Left MAC with Eye I-Clean Latex Phacoemulsification with Topical Allergy Intraocular Lens Surgeon Surgeon Role Service Panel Martinez Galicia MD Primary Ophthalmology 1 Ermias Russell OD Resident - Assisting 1 Special Needs Latex Allergy documented in this encounter Social History Tobacco Use Types Packs/Day Years Used Date Smoking Tobacco: Never Smokeless Tobacco: Never Alcohol Use Standard Drinks/Week Comments Yes 0 (1 standard drink = 0.6 oz pure alcoho l) wine few times/wk Sex Assigned at Date Recorded Female 12/20/2018 4:10 PM CDT documented as of this encounter Last Filed Vital Signs Vital Sign Reading Time Taken Comments Blood Pressure 110/65 07/25/2018 11:04 AM CDT Pulse - - Temperature 36.3 ??C (97.4 ??F) 07/25/2018 11:04 AM CDT Respiratory Rate 16 07/25/2018 11:04 AM CDT Oxygen Saturation 98% 07/25/2018 11:04 AM CDT Inhaled Oxygen Concentration - - Weight 68.5 kg (151 lb 1.8 oz) 07/25/2018 8:36 AM CDT Height 168.9 cm (5' 6.5) 07/25/2018 8:36 AM CDT Body Mass Index 24.02 07/25/2018 8:36 AM CDT documented in this encounter Discharge Instructions Discharge InstructionsZeb Mcknight RN - 07/25/2018 10:25 AM CDT [facility] Home Care Following Cataract Surgery If you have a gauze eye patch on, please do not remove it until it is removed by your doctor at yourfirst appointment after your surgery. You will start your eye drops the next day. OR If you only have a clear eye shield on, you may remove the eye shield when you get home and begin eye drops today as directed by your doctor. ??? Wear the clear eye shield for protection when sleeping for the next 5 days. ??? Do not rub the eye that had the operation. ??? Your eye might be sensitive to light. Wearing sunglasses may be more comfortable for you. ??? You may have some discomfort and irritation. Acetaminophen (Tylenol) or Ibuprofen (Advil) may betaken for discomfort. If pain persists please call your doctor???s office. ??? Keep the eye that had the surgery dry. You may wash your hair, bathe or shower, but keep your eye closed while doing so. ??? Avoid bending over, strenuous activity or heavy lifting until this activity has been approved byyour doctor. ??? You have a follow-up appointment with your doctor tomorrow at the [facility] ([phone]). Bring all your prescribed eye drops with you to this follow-up appointment. ??? If you take glaucoma medications, bring them with you to your follow-up appointment tomorrow. ??? Use medication exactly as prescribed by your doctor. You may restart your regular home medications. ??? Call your doctor???s office at [phone] if any of the following should occur: - Any sudden vision changes, including decreased vision - Nausea or severe headache - Increase in pain that is not controlled with Acetaminophen (Tylenol) or Ibuprofen (Advil) - Signs of infection (pus, increasing redness or tenderness) - Severe sensitivity to light - An increase in floaters (black spots in front of your vision) [facility] Home Care Following Anesthesia For 24 hours after surgery: 1. Get plenty of rest. A responsible adult must stay with you for at least 24 hours after you leave the surgery center. 2. Do not drive or use heavy equipment. If you have weakness or tingling, don't drive or use heavy equipment until this feeling goes away. 3. Do not drink alcohol. 4. Avoid strenuous or risky activities. Ask for help when climbing stairs. 5. You may feel lightheaded. IF so, sit for a few minutes before standing. Have someone help you getup. 6. If you have nausea (feel sick to your stomach): Drink only clear liquids such as apple juice, tricia janina, broth or 7-Up. Rest may also help. Be sure to drink enough fluids. Move to a regular diet asyou feel able. 7. You may have a slight fever. Call the doctor if your fever is over 100??F (37.7??C) (taken under the tongue) or lasts longer than 24 hours. 8. You may have a dry mouth, a sore throat, muscle aches or trouble sleeping. These should go away after 24 hours. 9. Do not make important or legal decisions. Tips for taking pain medications To get the best pain relief possible, remember these points: ?? Take pain medications as directed, before pain becomes severe. ?? Pain medication can upset your stomach: taking it with food may help. ?? Constipation is a common side effect of pain medication. Drink plenty of fluids. ?? Eat foods high in fiber. Take a stool softener if recommended by your doctor or pharmacist. ?? Do not drink alcohol, drive or operate machinery while taking pain medications. ?? Ask about other ways to control pain, such as with heat, ice or relaxation. Tylenol/Acetaminophen Consumption To help encourage the safe use of acetaminophen, the makers of TYLENOL?? have lowered the maximum daily dose for single-ingredient Extra Strength TYLENOL?? (acetaminophen) products sold in the [place] from 8 pills per day (4,000 mg) to 6 pills per day (3,000 mg). The dosing interval has also changed from2 pills every 4-6 hours to 2 pills every 6 hours. ??? If you feel your pain relief is insufficient, you may take Tylenol/Acetaminophen in addition to your narcotic pain medication. ??? Be careful not to exceed 3,000 mg of Tylenol/Acetaminophen in a 24 hour period from all sources. ??? If you are taking extra strength Tylenol/acetaminophen (500 mg), the maximum dose is 6 tablets in 24 hours. ??? If you are taking regular strength acetaminophen (325 mg), the maximum dose is 9 tablets in 24 hours. Call a doctor for any of the followin. Signs of infection (fever, growing tenderness at the surgery site, a large amount of drainage or bleeding, severe pain, foul-smelling drainage, redness, swelling). 2. It has been over 8 to 10 hours since surgery and you are still not able to urinate (pass water). 3. Headache for over 24 hours. Your doctor is: Dr. Martinez aGlicia, Ophthalmology: [phone] Or dial [phone] and ask for the resident union contract representative for: Ophthalmology For emergency care, call the: [facility]: [phone] (TTY for hearing impaired: [phone]) documented in this encounter Medications at Time of Discharge Medication Sig Dispensed Refills Start Date End Date amoxicillin (AMOXIL) 500 Take 2 capsules by 0 MG capsule mouth as needed 1 hour before dental procedures cholecalciferol (VITAMIN Take 2 tablets by 0 D3) 1000 UNIT tablet mouth daily. OTHER MEDICAL SUPPLIES ROCÍO stockings knee 0 length USE DIRECTED . aspirin 81 MG Take 81 mg by mouth 0 tabletIndications: daily Essential hypertension atorvastatin (LIPITOR) 10 Take 1 tablet (10 90 tablet 3 02/201808/12/2018 MG tabletIndications: mg) by mouth daily Hyperlipidemia, unspecified hyperlipidemia type azelastine (ASTELIN) 0.1 [facility] 2 sprays into 90 mL 11 08/12/2018 % sprayIndications: both nostrils 2 Screen for colon cancer, times daily Chronic rhinitis, unspecified type, Vaginal dryness, Atrophic vaginitis, Recurrent cold sores, Vitamin D deficiency B Complex Vitamins Take 1 tablet by 0 04/10/2019 (VITAMIN-B COMPLEX PO) mouth daily Calcium-Magnesium Take 4 capsules by 120 tablet 0 06/05/2015 04/10/2019 (ASHLYN/MAG CITRATE) 250-125 mouth daily MG TABSIndications: Warts, Seborrheic keratoses Chromium-Cinnamon Take 2 tablets by 0 04/10/2019 (CINNAMON PLUS CHROMIUM mouth daily PO)Indications: Essential hypertension ciclopirox (LOPROX) 0.77 Apply topically 2 90 g 5 01/0306/09/2019 % creamIndications: times daily To foot Dermatophytosis of nail and toenail. estradiol (ESTRACE Place 1 g vaginally 30 g 12 01/13/20 18 08/17/2019 VAGINAL) 0.1 MG/GM three times a week creamIndications: Apply a small amt Atrophic vaginitis, externally to vulva Screen for colon cancer, three times weekly. Seasonal allergies, Chronic rhinitis, Vaginal dryness, Recurrent cold sores, Vitamin D deficiency estradiol (ESTRING) [address] 1 RING 1 each 3 8 11/07/2019 vaginal ringIndications: VAGINALLY EVERY 3 Vaginal dryness, Atrophic MONTHS. vaginitis fish oil-omega-3 fatty Take 1 capsule by 0 04/10/2019 acids (OMEGA 3) 1000 MG mouth 2 times daily capsule fluticasone (FLONASE) 50 [facility] 2 sprays into 1 Bottle 11 08/12/2018 MCG/ACT sprayIndications: both nostrils daily Chronic rhinitis, unspecified type GARLIC PO Take 1 tablet by 0 04/10/20 19 mouth 3 times daily Tricia, Zingiber Take 1 capsule by 0 0 04/10/2019 officinalis, (TRICIA PO) mouth daily Glucosamine-Chondroitin Take 1 tablet by 0 04/10/2019 (GLUCOSAMINE CHONDR mouth. With MSN COMPLEX PO) hydrocortisone Place rectally 2 30 g 3 08/18/201611/04 (ANUSOL-HC) 2.5 % rectal times daily creamIndications: External hemorrhoids ipratropium (ATROVENT) [facility] 2 sprays into 1 Box 11/201710/10/2018 0.06 % sprayIndications: both nostrils 4 Chronic allergic times daily as rhinitis, unspecified needed for rhinitis seasonality, unspecified trigger, Screen for colon cancer, Seasonal allergic rhinitis, unspecified chronicity, unspecified trigger, Vaginal dryness, Atrophic vaginitis, Recurrent cold sores, Vitamin D deficiency irbesartan (AVAPRO) 150 Take 1 tablet (150 90 tablet 3 04/0402/07/2019 MG tabletIndications: mg) by mouth daily Essential hypertension LYSINE PO Take 1 capsule by 0 019 mouth 2 times daily Magnesium 200 MG TABS Take 4 tablets by 0 04/10/2019 mouth daily. ofloxacin (OCUFLOX) 0.3 % Apply 1 drop to eye 5 mL 0 1 08/12/2018 ophthalmic 3 times daily solutionIndications: Instill into Nuclear sclerotic operative eye(s) cataract of both eyes per physician instructions. prednisoLONE acetate Apply 1 drop to eye 5 mL 0 201708/12/2018 (PRED FORTE) 1 % 4 times daily ophthalmic Instill into suspIndications: Nuclear operative eye(s) sclerotic cataract of per physician both eyes instructions. Probiotic Product Take 1 capsule by 0 12/09/2020 (PROBIOTIC DAILY PO) mouth as needed TURMERIC PO Take 1 tablet by 0 019 mouth 2 times daily valACYclovir (VALTREX) Take 1 tablet 20 tablet 1 07/07/2018 11/22/2019 1000 mg (1,000 mg) by mouth tabletIndications: 3 times daily as Recurrent cold sores, needed Screen for colon cancer, Seasonal allergies, Chronic rhinitis, Vaginal dryness, Atrophic vaginitis, Vitamin D deficiency documented as of this encounter Miscellaneous Notes Op Note - Martinez Galicia MD - 07/25/2018 10:28 AM CDT PREOPERATIVE DIAGNOSIS: Visually significant cataract, Left eye POSTOPERATIVE DIAGNOSIS: Same PROCEDURES: 1. Cataract extraction with intraocular lens implant Left eye. SURGEON: Martinez Galicia M.D. Point Of Care Technician: Ermias Russell MD INDICATIONS: The patient Yamileth Sheikh presented to the eye clinic with decreased vision secondary to cataract in the Left eye. The risks, benefits and alternatives to cataract extraction were discussed. The patient elected to proceed. All questions were answered to the patient's satisfaction. DESCRIPTION OF PROCEDURE: Prior to the procedure, appropriate cardiac and respiratory monitors were applied to the patient. Inthe pre-operative holding area, a drop of topical tetracaine followed by lidocaine gel followed by povidone iodine. The patient was brought to the operating room where a surgical pause was carried out to identify with all members of the surgical team the correct surgical site. With adequate anesthesia, the Left eye was prepped and draped in the usual sterile fashion. A lid speculum was placed, and the operating microscope was rotated into position. A paracentesis was created. Through this limbal paracentesis, the anterior chamber was filled with preservative-free lidocaine followed by viscoelastic.A temporal wound was created at the limbus using a 2.6 mm blade. A capsulorrhexis was initiated using a bent 25-gauge needle and was completed in continuous and circular fashion using the capsulorrhexis forceps. The lens nucleus was hydrodissected using balanced salt solution. The lens nucleus was rotated and removed using phacoemulsification in a stop and chop technique. Residual cortical material was removed using irrigation-aspiration. The capsular bag was reinflated to its maximal extent with cohesive viscoelastic. A 21.5 diopter ZCBOO inserted into the capsular bag. The lens power selected was reviewed using the intraocular lens power measurements that were obtained preoperatively to confirm that the correct lens was selected for the desired post-operative refractive state. The residual viscoelastic was removed in its entirety, the wound were hydrated and found to be self-sealing. Tactile pressure was confirmed to be in a normal range. The lid speculum was removed, Maxitrol ointment followed by a patch and shield were applied. The patient tolerated the procedure well, and there were no complications. PLAN: The patient will be discharged to home and will follow up tomorrow morning in the eye clinic. EBL: None Complications: None Implant Name Type Inv. Item Serial No. Store Standards Associate Lot No. LRB No. Used EYE IMP IOL CHALO PCL TECNIS ZCB00 21.5 Lens/Eye Implant EYE IMP IOL CHALO PCL TECNIS ZCB00 21.5 [id number] [employer] Left 1 Attending Physician Procedure Attestation: I was present for the entire procedure Martinez Galicia MD Lens Inserter, Comprehensive Ophthal[facility] Department of Ophthalmology and Visual Neurosciences [facility] documented in this encounter Plan of Treatment Upcoming Encounters Date Type Specialty Care Team Description 09/10/2022 Office Visit Internal Medicine LogeaisMargot MD [address] [place] [id number] (Wo rk) documented as of this encounter Procedures Procedure Name Priority Date/Time Associated Diagnosis Comme nts PHACOEMULSIFICATION, 07/25/2018 10:04 AM Cataracts CATARACT, WITH STANDARD CDT INTRAOCULAR LENS IMPLANT INSERTION Special Needs Latex Allergy documented in this encounter Visit Diagnoses Not on filedocumented in this encounter Administered Medications Inactive Administered Medications - up to 3 most recent administrations Medication Order MAR Action Action Date Dose Rate Site acetaminophen (TYLENOL) tablet 975 Given 07/25/2018 9:14 AM CDT 975 mg mg 975 mg, Oral, ONCE, On Wed07/25/18 at 0900, For 1 dose, Maximum acetaminophen dose from all sources = 75 mg/kg/day not to exceed 4 grams/day., Pre-procedure BSS 500 with EPINEPHrine 1:1000 (PF) Given 07/25/2018 10:15 AM C DT 500 mLs Eye Left 0.3mL PRN, Starting on Wed07/25/18 at 1015, Intra-procedure BSS ophthalmic solution Given 07/25/2018 10:15 AM CDT 15 mLs Eye Left PRN, Starting on 07/25/18 at 1015, Intra-procedure cyclopentolate (CYCLOGYL) 1 % ophthalmic Given 07/25/2018 9:18 A M CDT 1 drop solution 1 drop 1 drop, Ophthalmic, EVERY 5 MIN PRIOR TO SURGERY, Starting on Wed07/25/18 at 0853, For 3 doses, Instill into operative eye(s), starting upon admission., Pre-procedure Given 07/25/2018 9:13 AM CDT 1 drop Given 07/25/2018 9:08 AM CDT 1 drop lactated ringers infusion New Bag 07/25/2018 9:09 AM CDT 25 mL/hr at 25 mL/hr, Intravenous, CONTINUOUS, IF patient NOT on dialysis., Pre-procedure, Starting on Wed07/25/18 at 0900, Until Wed07/25/18 at 1101 lidocaine (PF) (XYLOCAINE) 1 % Given 07/25/2018 10:15 AM CDT 0.5 mLs Eye Left injection PRN, Starting on Wed07/25/18 at 1015, Intra-procedure jlhjetnz-wnyglioij-rchahuglmxyhl (MAXITROL) Given 07/25/2018 10: 16 AM 1 g Eye Left 0.1 % ophthalmic ointment OINT CDT PRN, Starting on Wed07/25/18 at 1016, Intra-procedure phenylephrine (MYDFRIN /ALESSIO-SYNEPHRINE) 2.5 % Given 9:18 AM CDT 1 drop ophthalmic solution 1 drop 1 drop, Ophthalmic, EVERY 5 MIN PRIOR TO SURGERY, Starting on Wed07/25/18 at 0853, For 3 doses, Instill into operative eye(s), starting upon admission., Pre-procedure Given 07/25/2018 9:13 AM CDT 1 drop Given 07/25/2018 9:08 AM CDT 1 drop povidone-iodine 5 % ophthalmic Given 07/25/2018 10:16 AM CDT 1 d rop Eye Left solution 1 drop Ophthalmic, ONCE, On Wed07/25/18 at 0900, For 1 dose, To operative eye(s) pre-op. Provider to apply ophthalmic solution in PRE OP., Pre-procedure proparacaine (ALCAINE) 0.5 % ophthalmic Given 07/25/2018 9:08 AM CDT 1 drop solution 1 drop 1 drop, Ophthalmic, ONCE, On Wed07/25/18 at 0900, For 1 dose, Into operative eye(s) before dilating drops instilled., Pre-procedure scopolamine (TRANSDERM) 72 hr Given 07/25/2018 9:43 AM CDT 1 pat ch Behind Right Ear patch 1 patch 1 patch, Transdermal, EVERY 72 HOURS, First dose on Wed07/25/18 at 0945, Apply patch to skin, behind ear. Remove every 72 hours. Each 1.5 mg patch delivers 1 mg of scopolamine., Pre-procedure sodium hyaluronate (HEALON Given 07/25/2018 10:16 AM CDT 1 appli cator Eye Left DUET) PRN, Starting on Wed07/25/18 at 1016, Intra-procedure tetracaine (PONTOCAINE) 0.5 % Given 07/25/2018 10:[address] tapia Eye Left ophthalmic solution PRN, Starting on Wed07/25/18 at 1016, Intra-procedure timolol (TIMOPTIC) 0.5 % ophthalmic Given 07/25/2018 10:17 AM CD T 1 drop Eye Left solution PRN, Starting on Wed07/25/18 at 1017, Intra-procedure tropicamide (MYDRIACYL) 1 % ophthalmic Given 07/25/2018 9:18 AM CDT 1 drop solution 1 drop 1 drop, Ophthalmic, EVERY 5 MIN PRIOR TO SURGERY, Starting on Wed07/25/18 at 0853, For 3 doses, Instill into operative eye(s), Pre-procedure Given 07/25/2018 9:13 AM CDT 1 drop Given 07/25/2018 9:08 AM CDT 1 drop documented in this encounter Additional Health Concerns Assessment Noted Time PHQ-9 Depression Total Score: 1 03/30/2018 7:10 AM CDT documented as of this encounter Care Teams Bulk Delivery Driver Relationship Specialty Start Date End Date Lisseth Vang MD PCP - General 04/13/16 11/14/[address] [place], [place] [address] Carlota Landeros MD MD Urology 04/10/[address] [place], [place] [phone] Lisseth Vang MD PCP Family Practice 03/30/16 11/14/[address] [place], [place] [id number] Michelle Montana, RN Registered Nurse Urology 05/07/17 Anh Costa APRN MARKETING EDUCATION TEACHER Nurse Practitioner Nurse Practitioner 10/07 Martinez Galicia MD MD Ophthalmology 04/18/[address] [place] [id number] documented as of this encounter
--- OUTSIDE RECORDS SUMMARY | 2022-07-30 19:25 | XMS_ITS | Encounter Summary ---
:1945 Author Organization [facility] Address [address] [place] [address]. [place] [address] Care Team Providers Name Role Phone Lisseth Vang MD Primary Care Provider Carlota Landeros MD Unavailable Lisseth Vang MD Unavailable Michelle Montana RN Unavailable Anh Costa APRN MANAGER BUDGET Unavailable Unavailable Martinez Galicia MD Unavailable Sabino Romano DPM Unavailable Reason for Referral JAN Physical Therapy - Closed Specialty Diagnoses / Procedures Referred By Contact Refer red To Contact Diagnoses [place] [address] [place], [place] [address] Referral ID Status Reason Start Date Expiration Date Visits Requ ested Visits Authorized [id number] Closed 12/21/2018 12/21/2019 1 1 Encounter Details Date Type Department Care Team Description 12/21/2018 Orders Only [facility] Urology and Carlota Landeros U [facility] urgency Inst for Prostate and MD (Primary Dx) Urologic [place] [id number] [facility] [address] [place] [id number] [phone] Social History Tobacco Use Types Packs/Day Years [...] Office Visit Internal Medicine Margot Branham MD [address] [place] [address] [phone] (Wo rk) Scheduled Referrals Name Type Priority Associated Diagnoses Order S chedule JAN Physical Therapy Referral Routine Urinary urgency 1 Oc currences starting Referral 12/21/2018 unti l 12/22/2019 documented as of this encounter Visit Diagnoses Diagnosis Urinary urgency - Primary Urgency of urination documented in this encounter Additional Health Concerns Assessment Noted Time PHQ-9 Depression Total Score: 1 03/30/2018 7:10 AM CDT documented as of this encounter Care Teams Card Grinder Relationship Specialty Start Date End Date Lisseth Vang MD PCP - General 04/13/16 11/14/[address] [place], [place] [address] Carlota Landeros MD MD Urology 04/10/[address] [place], [place] [phone] Lisseth Vang MD PCP Family Practice 03/30/16 11/14/[address] [place], [place] [address] Michelle Montana, MODESTA Registered Nurse Urology 05/07/17 Anh Costa APRN MANAGER BUDGET Nurse Practitioner Nurse Practitioner 10/07 Martinez Galicia MD MD Ophthalmology 04/18/[address] [place] [phone] Sabino Romano DPM MD Podiatry 08/11/18 [facility] [address] [phone] documented as of this encounter
--- OUTSIDE RECORDS SUMMARY | 2022-07-30 19:25 | XMS_ITS | Encounter Summary ---
:1945 Author Organization [facility] Address [address] [place] [address]. [place] [address] Care Team Providers Name Role Phone Lisseth Vang MD Primary Care Provider Carlota Landeros MD Unavailable Lisseth Vang MD Unavailable Michelle Montana RN Unavailable Anh Costa APRN FIELD HAND Unavailable Unavailable Martinez Galicia MD Unavailable Sabino Romano DPM Unavailable Reason for Referral Consultation - Closed Specialty Diagnoses / Procedures Referred By Contact Refer red To Contact Diagnoses Family history of colon cancer Parul Salmeron APRN FIELD HAND [address] [facility] [address] [place], [place] [address] Referral ID Status Reason Start Date Expiration Date Visits Requ ested Visits Authorized [id number] Closed 12/08/2018 12/08/2019 1 1 CAST PATTERNMAKER Reason for Visit Reason Comments Consult New consult hemorrhoids Encounter Details Date Type Department Care Team Description 12/08/2018 [facility] Visit [facility]ura Cooper, Recta l bleeding (Primary Dx); Rectal Surgery Parul Devlin APRN Family history of colon canc er; [address] [facility] [address] FIELD HAND Hemorrhoid prolapse; [address] [facility] [address] [facility] Other constipation [place], [place] [phone] [place], [place] [phone] (Wo rk) Social History Tobacco Use Types Packs/Day Years Used Date Smoking Tobacco: Never Smokeless Tobacco: Never Alcohol Use Standard Drinks/Week Comments Yes 0 (1 standard drink = 0.6 oz pure alcoho l) wine few times/wk Sex Assigned at Date Recorded Female 12/20/2018 4:10 PM CDT documented as of this encounter Last Filed Vital Signs Vital Sign Reading Time Taken Comments Blood Pressure 125/71 12/08/2018 6:53 AM DIE CAST PATTERNMAKER Pulse 53 12/08/2018 6:53 AM DIE CAST PATTERNMAKER Temperature - - Respiratory Rate - - Oxygen Saturation 97% 12/08/2018 6:53 AM DIE CAST PATTERNMAKER Inhaled Oxygen Concentration - - Weight 65.5 kg (144 lb 6.4 oz) 12/08/2018 6:53 AM DIE CAST PATTERNMAKER Height 168.9 cm (5' 6.5) 12/08/2018 6:53 AM DIE CAST PATTERNMAKER Body Mass Index 22.96 12/08/2018 6:53 AM DIE CAST PATTERNMAKER documented in this encounter Patient Instructions Patient InstructionsBlTrina sanabria - 12/08/2018 7:00 AM CST Colonoscopy is due in 2020. Genetic counseling -they will call you to set up appointment. 1) I performed hemorrhoidal banding today 2) You may return in 4 weeks for another banding if symptoms continue. 3) There is a small risk of bleeding and remote chance of infection. Contact us in the interim if there are any concerns. 5) Try a fiber supplement such as Citrucel 2-3 times a day for constipation *always take this. 6) Drink 8-10 glasses of water with this 7) Can additionally use stool softeners or a laxative such as Miralax to keep stools soft 8) No heavy lifting or aspirin use for 3 weeks CAST PATTERNMAKER documented in this encounter Progress Notes Parul Salmeron APRN FIELD HAND - 12/08/2018 7:00 AM CST Colon and Rectal Surgery Consult Clinic Note Date: 12/08/2018 Referring provider: Referred MD Deon No address on file RE: Yamileth Sheikh : 1945 [place]: 12/08/2018 Yamileth Sheikh is a very pleasant 73 year old female with a significant past medical history of hypertension, HL, urinary retention/ urgency, atrophic vaginitis, & hemorrhoids. Patient reports hemorrhoids bleeding 1 week ago. Given these findings they were subsequently sent to the [facility] for an opinion on this and a new patient consultation. History: Patient reports being seen for bleeding hemorrhoids in 2011 which were banded at that time.Last week she had rectal bleeding for the first time since then. She reported a small amount of bleeding over several days which has since resolved. She reports dealing with constipation and taking wheat bran and Miralax. She reports some discomfort with the hemorrhoids but no pain. She reports havinga hemorrhoids that is always on the outside although it shrinks when not inflamed. Patient's last colonoscopy was on 05/29/15 and was negative. Patient is not taking any blood thinners. Family cancer history includes: Mother of colon cancer at 91, sister was diagnosed with uterinecancer at 66 years, Maternal 1st cousin of colon cancer at age 75, maternal great grandpa of colon cancer at age 65, paternal uncle at age 90 from colon cancer, and paternal aunt ofcolon cancer at age 65. Physical Examination: BP 125/71 Pulse 53 Ht 5' 6.5 Wt 144 lb 6.4 oz SpO2 97% BMI 22.96 kg/m?? General: alert, oriented, sitting comfortably and in no acute distress HEENT: mucous membranes moist Perianal external examination: Exam was chaperoned by Trina Abrams [employer] SAL[employer] CONSULT[employer] student and MARILOU Bauer Perianal skin: Intact with no excoriation or lichenification. Lesions: No. Eversion of buttocks: There was not evidence of an anal fissure. Details: N/A. Skin tags or external hemorrhoids: Yes: two small left lateral external hemorrhoids. Digital rectal examination: Was performed. Sphincter tone: Good. Palpable lesions: No. Bimanual examination: was not performed Anoscopy: Was performed. Hemorrhoids: Yes. Grade 2 hemorrhoids left lateral and right anterior. Lesions: No Procedures: After discussing the risks and benefits, the patient agreed to proceed with internal hemorrhoidal banding. A suction hemorrhoidal hydropulper operator was used to place a total of 2 band(s) in the left lateral and right anterior position(s). There was no significant bleeding. The patient tolerated the procedure well. Assessment/Plan: 73 year old female with external hemorrhoids, hemorrhoid prolapse, and rectal bleeding. On exam, 2 small lateral external hemorrhoids and left lateral and right lateral internal hemorrhoids noted. Discussed managing these with hemorrhoidal banding as she tolerated this well in the past. Discussed that several banding procedures may be needed and that this will not necessarily resolvethe external hemorrhoids. Patient states an understanding of this and states an understanding that there is a small risk of bleeding today and when the band falls off in 1-2 weeks. Also advised patientthat there is a remote chance of infection. Recommended avoiding heavy lifting and remain off aspirin for two weeks. Patient verbalized an understanding of these risks and wished to proceed today. Hemorrhoid banding was performed on the both the left lateral and right anterior internal hemorrhoids. Discussed that patient should take a daily fiber supplement such as Citrucel. Encouraged her to drink a lot of water with this and take Miralax as needed to keep stools soft. Discussed her family history of cancers and will refer her for genetic counseling. Because of this family history, I have a low threshold for having her get a colonoscopy. If patient continues to have bleeding after this banding, we discussed that she should get a colonoscopy. If bleeding stops, then she is due for her colonoscopy in 2019. Discussed that she can call with any questions or concerns orif rectal bleeding continues. Patient's questions were answered to her satisfaction and she is in agreement with the plan. Medical history: Past Medical History: Diagnosis Date ??? Benign [...] bladder implant, interstim ??? Vitamin D deficiency Surgical history: Past Surgical History: Procedure Laterality Date ??? [...] microwaved. Dr Baer ENT ??? uteroscopy 05/04/2018 Problem list: Patient Active Problem List Diagnosis Date Noted [...] without diagnosis of hypertension 09/23/2009 Priority: Medium Medications: Current Outpatient Medications Medication Sig Dispense Refill ??? B Complex Vitamins (VITAMIN-B COMPLEX PO) Take 1 tablet by mouth daily ??? cholecalciferol (VITAMIN D3) 1000 UNIT tablet [...] EVERY 3 MONTHS. 1 each 3 ??? fish oil-omega-3 fatty acids (OMEGA 3) 1000 MG capsule Take 1 capsule by mouth 2 times daily ??? hydrocortisone (ANUSOL-HC) 2.5 % cream Place rectally 2 times daily 30 g 3 ??? irbesartan (AVAPRO) 150 MG tablet Take 1 tablet (150 mg) by mouth daily 90 tablet 3 ??? LYSINE PO Take 1 capsule by mouth 2 times daily ??? OTHER MEDICAL SUPPLIES ROCÍO stockings [...] needed 1 hour before dental procedures ??? aspirin 81 MG tablet Take 81 mg by mouth daily ??? Calcium-Magnesium (ASHLYN/MAG CITRATE) 250-125 MG TABS Take 4 capsules by mouth daily 120 tablet ??? Chromium-Cinnamon (CINNAMON PLUS CHROMIUM PO) Take 2 tablets by mouth daily ??? FLUAD 0.5 ML NEFTALI VACCINE ADMINISTERED AT PHARMACY 0 ??? GARLIC PO Take 1 tablet by mouth 3 times daily ??? Adin, Zingiber officinalis, (ADIN PO) Take 1 capsule by mouth daily ??? Glucosamine-Chondroitin (GLUCOSAMINE CHONDR COMPLEX PO) Take 1 tablet by mouth. With MSN ??? Magnesium 200 MG TABS Take 4 tablets by mouth daily. ??? Probiotic Product (PROBIOTIC DAILY PO) Take 1 capsule by mouth as needed ??? TURMERIC PO Take 1 tablet by mouth 2 times daily Allergies: Allergies Allergen Reactions ??? Codeine Nausea and [...] Tape [Adhesive Tape] Rash Including steri-strips Family history: Family History Problem Relation Age of Onset ??? Cancer - colorectal Mother colon polyps, age 93 ??? Hypertension Mother ??? Colon Polyps Mother ??? Colon Cancer Mother ??? Cardiovascular Father CHF age 79, hx of PE and HTN ??? Hypertension Father ??? Colon Polyps Father ??? Other - See Comments Brother MVA ??? No Known Problems Sister ??? No Known Problems Sister ??? Parkinsonism Sister Hx TBI, MVA ??? Glaucoma Sister 55 Brought on by eye trauma. ??? Cancer Sister uterine cancer ??? Other Cancer Sister ??? Cancer Maternal Grandmother 84 of pancreatic cancer ??? Hypertension Maternal Grandmother ??? Myocardial Infarction Maternal Grandfather 82 of [place] ??? Hypertension Maternal Grandfather ??? Cardiovascular Paternal Grandmother age 65 of heart problems ??? Hypertension Paternal Grandmother ??? Pneumonia Paternal Grandfather age 70 after flu ??? No Known Problems Son ??? Colon Cancer Cousin ??? Colon Cancer Paternal Uncle ??? Colon Cancer Paternal Aunt ??? Colon Cancer Maternal Great-Grandfather ??? Macular Degeneration No family hx of Social history: Social History Tobacco Use ??? Smoking status: Never Smoker ??? Smokeless tobacco: Never Used Substance Use Topics ??? Alcohol use: Yes Comment: wine few times/wk Marital status: single. Nursing Notes: Nelson Menjivar CMA 12/08/2018 6:56 AM Signed Chief Complaint Patient presents with ??? Consult New consult hemorrhoids Vitals: 12/08/18 0653 BP: 125/71 Pulse: 53 SpO2: 97% Weight: 144 lb 6.4 oz Height: 5' 6.5 Body mass index is 22.96 kg/m??. Nelson Menjivar CMA Total face to face time was 30 minutes, outside the procedure time, >50% counseling. Parul Salmeron APRN, [employer]BI[employer] SALES CONSULTANT-C Colon and Rectal Surgery [facility] This note was created using speech recognition software and may contain unintended word substitutions. CAST PATTERNMAKER documented in this encounter Nursing Notes Nelson Menjivar CMA - 12/08/2018 7:00 AM CST Chief Complaint Patient presents with ??? Consult New consult hemorrhoids Vitals: 12/08/18 0653 BP: 125/71 Pulse: 53 SpO2: 97% Weight: 144 lb 6.4 oz Height: 5' 6.5 Body mass index is 22.96 kg/m??. Nelson Menjivar CMA CAST PATTERNMAKER documented in this encounter Plan of Treatment Upcoming Encounters Date Type Specialty Care Team Description 09/10/2022 Office Visit Internal Medicine LogMargot sadler MD [address] [place] [phone] (Wo rk) Scheduled Referrals Name Type Priority Associated Diagnoses Order S chedule CANCER RISK MGMT/CANCER Referral Routine Family history of colon Ordered: 12/08/2018 GENETIC COUNSELING cancer REFERRAL documented as of this encounter Procedures Procedure Name Priority Date/Time Associated Diagnosis Comme nts HC ANOSCOPY W/WO BRUSH/WASH Routine 12/08/2018 8:59 AM H emorrhoid prolapse DIE CAST PATTERNMAKER Rectal bleeding HC HEMORRHOIDECTOMY W Routine 12/08/2018 8:59 AM Hemorrh oid prolapse BANDING/LIGATION DIE CAST PATTERNMAKER Rectal bleeding documented in this encounter Visit Diagnoses Diagnosis Rectal bleeding - Primary Hemorrhage of rectum and anus Family history of colon cancer Family history of malignant neoplasm of gastrointestinal tract Hemorrhoid prolapse Unspecified hemorrhoids with other compl ication Other constipation documented in this encounter Additional Health Concerns Assessment Noted Time PHQ-9 Depression Total Score: 1 03/30/2018 7:10 AM CDT documented as of this encounter Care Teams Bus Transportation Manager Relationship Specialty Start Date End Date Lisseth Vang MD PCP - General 04/13/16 11/14/[address] [place], [place] [phone] Carlota Landeros MD MD Urology 04/10/[id number] [place], [place] [phone] Lisseth Vang MD PCP Family Practice 03/30/16 11/14/[address] [place], [place] [phone] Michelle Montana, RN Registered Nurse Urology 05/07/17 Anh Costa APRN FIELD HAND Nurse Practitioner Nurse Practitioner 10/07 Martinez Galicia MD MD Ophthalmology 04/18/18 [address] [place] [address] Sabino Romano DPM MD Podiatry 08/11/[address] [place] [phone] documented as of this encounter
--- OUTSIDE RECORDS SUMMARY | 2022-07-30 19:25 | XMS_ITS | Encounter Summary ---
:1945 Author Organization [facility] Address [address] [place] [address]. [place] [address] Care Team Providers Name Role Phone Lisseth Vang MD Primary Care Provider Carlota Acuña MD Unavailable Lisseth Vang MD Unavailable Michelle Montana RN Unavailable Anh Costa APRN CRISIS MANAGER Unavailable Unavailable Martinez Galicia MD Unavailable Sabino Romano DPM Unavailable Reason for Visit Reason Comments Lipids Encounter Details Date Type Department Care Team Description 10/10/2018 Office Visit [facility] for Anh Costa pidemia, Cardiovascular Disease CLAUDIA Marsh CNP uns pecified Prevention hyperlipidemia type 909 [facility] (Primary Dx) 5th [place] [address] Social History Tobacco Use Types Packs/Day Years Used Date Smoking Tobacco: Never Smokeless Tobacco: Never Alcohol Use Standard Drinks/Week Comments Yes 0 (1 standard drink = 0.6 oz pure alcoho l) wine few times/wk Sex Assigned at Date Recorded Female 12/20/2018 4:10 PM CDT documented as of this encounter Last Filed Vital Signs Vital Sign Reading Time Taken Comments Blood Pressure 124/67 10/10/2018 2:25 PM TYPEWRITER RIBBON WINDER Pulse 71 10/10/2018 2:25 PM TYPEWRITER RIBBON WINDER Temperature - - Respiratory Rate - - Oxygen Saturation 96% 10/10/2018 2:25 PM TYPEWRITER RIBBON WINDER Inhaled Oxygen Concentration - - Weight 66.7 kg (147 lb) 10/10/2018 2:25 PM TYPEWRITER RIBBON WINDER Height 168.9 cm (5' 6.5) 10/10/2018 2:25 PM TYPEWRITER RIBBON WINDER Body Mass Index 23.37 10/10/2018 2:25 PM TYPEWRITER RIBBON WINDER documented in this encounter Patient Instructions Patient InstructionsAnh Costa APRN CNP - 10/10/2018 2:00 PM CST Continue current medications. Great work with the weight reduction and regular exercise!! Follow up in one year. WRITER RIBBON WINDER documented in this encounter Progress Notes Anh Costa APRN CNP - 10/10/2018 2:00 PM CST PROBLEM LIST Patient Active Problem List Diagnosis ??? Elevated blood pressure reading without diagnosis of hypertension ??? CARDIOVASCULAR SCREENING; LDL GOAL LESS THAN 130 ??? Urinary retention ??? Urgency of urination ??? Tinnitus of both ears ??? Hemorrhoids ??? Anal fissure ??? Hypertension ??? Osteopenia ??? Atrophic vaginitis ??? Muscle weakness ??? Mixed incontinence ??? Lump or mass in breast ??? Disorder of bone and cartilage ??? ACP (advance care planning) ??? Elevated glucose ??? Hyperlipidemia HPI: Yamileth Sheikh is a 73 year old year old female with a history of arthritis with right hip replacement, bladder stimulator implant (generator replaced 2016) hyperlipidemia and hypertension. She is currently taking irbesartan 150 mg per day for HTN and rosuvastastin 5 mg per day for her lipids. Sheis tolerating both of these medications without side effects. She has been working very hard to improve her health habits with weight loss and regular exercise. Her weight is not in the normal range but her goal is to weight 137.. No chest pain or shortness of breath. She completed a sleep study and was told that she did not have sleep apnea. No chest pain or shortness of breath. PAST MEDICAL HISTORY: Past Medical History: Diagnosis Date ??? Benign [...] bladder implant, interstim ??? Vitamin D deficiency CURRENT MEDICATIONS: Current Outpatient Medications Medication Sig Dispense Refill ??? amoxicillin (AMOXIL) 500 MG capsule Take 2 capsules by mouth as needed 1 hour before dental procedures ??? aspirin 81 MG tablet Take 81 mg by mouth daily ??? B Complex Vitamins (VITAMIN-B COMPLEX PO) Take 1 tablet by mouth daily ??? Calcium-Magnesium (ASHLYN/MAG CITRATE) 250-125 MG TABS Take 4 capsules by mouth daily 120 tablet ??? cholecalciferol (VITAMIN D3) 1000 UNIT tablet Take 2 tablets by mouth daily. ??? Chromium-Cinnamon (CINNAMON PLUS CHROMIUM PO) Take 2 tablets by mouth daily ??? ciclopirox (LOPROX) 0.77 % cream Apply [...] capsule by mouth 2 times daily ??? FLUAD 0.5 ML NEFTALI VACCINE ADMINISTERED AT PHARMACY 0 ??? GARLIC PO Take 1 tablet by mouth 3 times daily ??? Adin, Zingiber officinalis, (ADIN PO) Take 1 capsule by mouth daily ??? Glucosamine-Chondroitin (GLUCOSAMINE CHONDR COMPLEX PO) Take 1 tablet by mouth. With MSN ??? hydrocortisone (ANUSOL-HC) 2.5 % rectal cream Place rectally 2 times daily 30 g 3 ??? ipratropium (ATROVENT) 0.06 % spray [place] 2 sprays into both nostrils 4 times daily as needed for rhinitis 1 Box 11 ??? irbesartan (AVAPRO) 150 MG tablet Take 1 tablet (150 mg) by mouth daily 90 tablet 3 ??? LYSINE PO Take 1 capsule by mouth 2 times daily ??? Magnesium 200 MG TABS Take 4 tablets by mouth daily. ??? OTHER MEDICAL SUPPLIES ROCÍO stockings knee length USE DIRECTED . ??? prednisoLONE acetate (PRED FORTE) 1 % ophthalmic susp Place 1 drop into both eyes 2 times daily Instill into operative eye(s) per physician instructions. Taper per MD instructions each eye (Patientnot taking: Reported on 09/22/2018) 5 mL 0 ??? Probiotic Product (PROBIOTIC DAILY PO) Take 1 capsule by mouth as needed ??? rosuvastatin (CRESTOR) 5 MG tablet Take 1 tablet (5 mg) by mouth daily 90 tablet 3 ??? TURMERIC PO Take 1 tablet by mouth 2 times daily ??? valACYclovir (VALTREX) 1000 mg tablet Take 1 tablet (1,000 mg) by mouth 3 times daily as needed 20 tablet 1 PAST SURGICAL HISTORY: Past Surgical History: Procedure Laterality Date ??? [...] Intraocular Lens; Surgeon: Martinez Galicia MD; Location: OR ??? REPLACE GENERATOR STIMULATOR (LOCATION) Left 04/27/2017 Procedure: REPLACE GENERATOR STIMULATOR (LOCATION); Replacement of Left Interstim Battery Latex Allergy; Surgeon: Carlota Acuña MD; Location: OR ??? SURGICAL HISTORY OF - ? Nasal passages microwaved. Dr Baer ENT ??? uteroscopy 05/04/2018 ALLERGIES Allergies Allergen Reactions ??? Codeine Nausea and [...] ??? Tape [Adhesive Tape] Rash Including steri-strips FAMILY HISTORY: Family History Problem Relation Age of Onset ??? Cancer - colorectal Mother colon polyps, age 93 ??? Cardiovascular Father CHF age 79, hx of PE and HTN ??? Hypertension Father ??? Other - See Comments Brother MVA ??? No Known Problems Sister ??? No Known Problems Sister ??? Parkinsonism Sister Hx TBI, MVA ??? Glaucoma Sister 55 Brought on by eye trauma. ??? Cancer Sister uterine cancer ??? Cancer Maternal Grandmother 84 of pancreatic cancer ??? Myocardial Infarction Maternal Grandfather 82 of OR ??? Cardiovascular Paternal Grandmother age 65 of heart problems ??? Pneumonia Paternal Grandfather age 70 after flu ??? No Known Problems Son ??? Macular Degeneration No family hx of SOCIAL HISTORY: Social History Socioeconomic History ??? Marital status: Single Spouse name: Not on file ??? Number of children: Not on file ??? Years of education: Not on file ??? Highest education level: Not on file Social Needs ??? Financial resource strain: Not on file ??? Food insecurity - worry: Not on file ??? Food insecurity - inability: Not on file ??? Transportation needs - medical: Not on file ??? Transportation needs - non-medical: Not on file Occupational History ??? 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 Smoking status: Never Smoker ??? Smokeless tobacco: Never Used Substance and Sexual Activity ??? Alcohol use: Yes Comment: wine few times/wk ??? Drug use: No ??? Sexual activity: Not Currently Other Topics Concern ??? Parent/sibling w/ CABG, OR or angioplasty before 65F 55M? Not Asked ??? Service Not Asked ??? Blood Transfusions Not Asked ??? Caffeine Concern Yes Comment: 1 c/day ??? Occupational Exposure Not Asked ??? Hobby Hazards Not Asked ??? Sleep Concern Yes Comment: gets hot at night ??? Stress Concern Not Asked ??? Weight Concern Not Asked ??? Special Diet Not Asked ??? Back Care Not Asked ??? Exercise Yes Comment: 30 min walking daily - weights+ ??? Bike Helmet Not Asked ??? Seat Belt Yes ??? Self-Exams Not Asked Social History Narrative 1 son - - still working at [employer] - [place] as a second language - lives in a house - retiring - March 2015 How much exercise per week? 1/2 hr daily How much calcium per day? In foods How much caffeine per day? 2 cups coffee How much vitamin D per day? supplement Do you/your family wear seatbelts? Yes Do you/your family use safety helmets? Yes Do you/your family use sunscreen? Yes Do you/your family keep firearms in the home? No Do you/your family have a smoke detector(s)? Yes March 29, 2018 Addison Martinez LPN ROS: Constitutional: No fever, chills, or sweats. No weight gain/loss ENT: No visual disturbance, ear ache, epistaxis, sore throat Allergies/Immunologic: Negative. Respiratory: No cough, hemoptysia Cardiovascular: As per HPI GI: No nausea, vomiting, hematemesis, melena, or hematochezia : No urinary frequency, dysuria, or hematuria Integument: Negative Psychiatric: Negative Neuro: Negative Endocrinology: Negative Musculoskeletal: Negative EXAM: There were no vitals taken for this visit. In general, the patient is a pleasant female in no apparent distress. HEENT: NC/AT. FRANK. EOMI. Sclerae white, not injected. Nares clear. Pharynx without erythema or exudate. Dentition intact. Neck: No adenopathy. No thyromegaly. Carotids +4/4 bilaterally without bruits. No jugular venous distension. Heart: RRR. Normal S1, S2 splits physiologically. No murmur, rub, click, or gallop. The PMI is in the 5th ICS in the midclavicular line. There is no heave. Lungs: CTA. No ronchi, wheezes, rales. No dullness to percussion. Abdomen: Soft, nontender, nondistended. No organomegaly. No bruits. Extremities: No clubbing, cyanosis, or edema. The pulses are +4/4 at the radial, brachial, femoral, popliteal, DP, and PT sites bilaterally. No bruits are noted. Labs: LIPID RESULTS: Lab Results Component Value Date CHOL 127 07/22/2018 Lab Results Component Value Date HDL 62 07/22/2018 Lab Results Component Value Date LDL 48 07/22/2018 Lab Results Component Value Date TRIG 84 07/22/2018 Lab Results Component Value Date CHOLHDLRATIO 3.4 01/04/2015 Lab Results Component Value Date AST 16 07/22/2016 Lab Results Component Value Date ALT 21 07/22/2016 CBC RESULTS: Lab Results Component Value Date HGB 14.7 08/16/2012 Lab Results Component Value Date WBC 7.0 08/16/2012 Lab Results Component Value Date RBC 4.87 08/16/2012 Lab Results Component Value Date HCT 43.4 08/16/2012 Lab Results Component Value Date MCV 89 08/16/2012 Lab Results Component Value Date MCH 30.2 08/16/2012 Lab Results Component Value Date MCHC 33.9 08/16/2012 Lab Results Component Value Date RDW 12.8 08/16/2012 Lab Results Component Value Date PLT 191 08/16/2012 BMP RESULTS: Lab Results Component Value Date NA 138 03/25/2018 Lab Results Component Value Date POTASSIUM 4.0 03/25/2018 Lab Results Component Value Date CHLORIDE 105 03/25/2018 Lab Results Component Value Date ASHLYN 9.1 03/25/2018 Lab Results Component Value Date CO2 26 03/25/2018 Lab Results Component Value Date BUN 12 03/25/2018 Lab Results Component Value Date CR 0.87 03/25/2018 Lab Results Component Value Date GFRESTIMATED 64 03/25/2018 Lab Results Component Value Date GLC 94 03/25/2018 Lab Results Component Value Date A1C 5.4 07/22/2016 No results found for: INR Procedures: Assessment and Plan: Cardiovascular: No chest pain or shortness of breath with her work outs at the gym or with walking. Hypertension: blood pressure at target with sitting BP today at 124/67 with irbesartan 150 mg per day. Lipids: LDL decreased significantly now at 48 with rosuvastatin 5 mg per day with no report of side effects. Plan: Continue current medications Return in one year for follow up. WRITER RIBBON WINDER documented in this encounter Plan of Treatment Upcoming Encounters Date Type Specialty Care Team Description 09/10/2022 Office Visit Internal Medicine LogeaMargot man MD [address] [id number] (Wo rk) documented as of this encounter Visit Diagnoses Diagnosis Hyperlipidemia, unspecified hyperlipidem ia type - Primary documented in this encounter Additional Health Concerns Assessment Noted Time PHQ-9 Depression Total Score: 1 03/30/2018 7:10 AM CDT documented as of this encounter Care Teams Drapery Cutter Relationship Specialty Start Date End Date Lisseth Vang MD PCP - General 04/13/16 11/14/[address] [place], [place] [address] Carlota Acuña MD MD Urology 04/10/[address] [place], [place] [address] Lisseth Vang MD PCP Family Practice 03/30/16 11/14/[address] [place], [place] [address] Michelle Montana, MODESTA Registered Nurse Urology 05/07/17 Julissa, Anh Salma, SALES ENABLEMENT CONSULTANT CRISIS MANAGER Nurse Practitioner Nurse Practitioner 10/07 Martinez Galicia MD MD Ophthalmology 04/18/18 [address] [place] [address] Sabino Romano DPM MD Podiatry 08/11/[address] [phone] documented as of this encounter
--- OUTSIDE RECORDS SUMMARY | 2022-07-30 19:25 | XMS_ITS | Encounter Summary ---
:1945 Author Organization [facility] Address [address] [place] [address]. [place] [address] Care Team Providers Name Role Phone Lisseth Vang MD Primary Care Provider Carlota Landeros MD Unavailable Lisseth Vang MD Unavailable Michelle Montana RN Unavailable Anh Costa APRN SALMON GILLNET VESSEL OPERATOR Unavailable Unavailable Martinez Galicia MD Unavailable Sabino Romano DPM Unavailable Encounter Details Date Type Department Care Team Description 02/15/2019 [facility] Rehabilitation Services ci, Nitin n, PT Mixed stress and urge urinary incontinen ce Elsa [facility] [address] [facility] S out [address] [facility] [place] [address] [place] [address] [place] [address] [phone] Social History Tobacco Use Types Packs/Day Years [...] Visit Internal Medicine LogMargot sadler MD [address] [phone] (Wo rk) documented as of this encounter Procedures Procedure Name Priority Date/Time Associated Diagnosis Comme nts [facility] Routine 02/15/2019 8:46 AM Urinary urgen cy TECH,1+REGIONS,EA 15 MIN CDT Mixed stress and urge urinary incontinence [facility] THERAPEUTIC Routine 02/15/2019 8:46 AM Urinary urgen cy ACTIVITIES CDT Mixed stress and urge urinary incontinence ZZ NEUROMUSCULAR Routine 02/15/2019 8:46 AM Urinary urg ency RE-EDUCATION CDT Mixed stress and urge urinary incontinence documented in this encounter Visit Diagnoses Diagnosis Urinary urgency - Primary Urgency of urination Mixed stress and urge urinary incontinen ce Mixed incontinence urge and stress (male )(female) documented in this encounter Additional Health Concerns Assessment Noted Time PHQ-9 Depression Total Score: 1 03/30/2018 7:10 AM CDT documented as of this encounter Care Teams Annual Campaign Manager Relationship Specialty Start Date End Date Lisseth Vang MD PCP - General 04/13/16 11/14/[address] [place], [place] [address] Carlota Landeros MD MD Urology 04/10/[address] [place], [place] [address] Lisseth Vang MD PCP Family Practice 03/30/16 11/14/[address] [place], [place] [phone] Michelle Montana, MODESTA Registered Nurse Urology 05/07/17 Anh Costa APRN SALMON GILLNET VESSEL OPERATOR Nurse Practitioner Nurse Practitioner 10/07 Martinez Galicia MD MD Ophthalmology 04/18/18 [address] [place], [place] [address] Sabino Romano DPM MD Podiatry 08/11/[address] [place] [phone] documented as of this encounter
--- OUTSIDE RECORDS SUMMARY | 2022-07-30 19:25 | XMS_ITS | Encounter Summary ---
:1945 Author Organization [facility] Address [address] [place] [address]. [place] [address] Care Team Providers Name Role Phone Lisseth Vang MD Primary Care Provider Carlota Landeros MD Unavailable Lisseth Vang MD Unavailable Michelle Montana RN Unavailable Anh Costa APRN SAND MIXER Unavailable Unavailable Martinez Galicia MD Unavailable Sabino Romano DPM Unavailable Encounter Details Date Type Department Care Team Description 10/10/2018 Travel Social History Tobacco Use Types Packs/Day [...] Visit Internal Medicine Margot Branham MD [address] [place] [address] (Wo rk) documented as of this encounter Visit Diagnoses Not on filedocumented in this encounter Additional Health Concerns Assessment Noted Time PHQ-9 Depression Total Score: 1 03/30/2018 7:10 AM CDT documented as of this encounter Care Teams Collection Systems Worker Relationship Specialty Start Date End Date Lisseth Vang MD PCP - General 04/13/16 11/14/[address] [place] [address] Carlota Landeros MD MD Urology 04/10/[address] [place], [place] [address] Lisseth Vang MD PCP Family Practice 03/30/16 11/14/[address] [place], [place] [phone] Michelle Montana, MODESTA Registered Nurse Urology 05/07/17 Anh Costa APRN SAND MIXER Nurse Practitioner Nurse Practitioner 10/07 Martinez Galicia MD MD Ophthalmology 04/18/18 420 [place] [address] Sabino Romano DPM MD Podiatry 08/11/18 [facility] [address] [phone] documented as of this encounter
--- OUTSIDE RECORDS SUMMARY | 2022-07-30 19:25 | XMS_ITS | Encounter Summary ---
:1945 Author Organization [facility] Address [address] [place] [address]. [place] [address] Care Team Providers Name Role Phone Lisseth Vang MD Primary Care Provider Carlota Landeros MD Unavailable Lisseth Vang MD Unavailable Michelle Montana RN Unavailable Anh Costa APRN CORE ANALYST Unavailable Unavailable Martinez Galicia MD Unavailable Sabino Romano DPM Unavailable Reason for Visit Reason Onset Date Comments Pre Visit Planning - Done 12/14/2018 Encounter Details Date Type Department Care Team Description 12/14/2018 PRE VISIT [facility] and Carlota Landeros P re Visit Planning - Inst for Prostate and MD Done Urologic [facility]ancers [address] [place] [address] [phone] Social History Tobacco Use Types Packs/Day Years Used Date Smoking Tobacco: Never Smokeless Tobacco: Never Alcohol Use Standard Drinks/Week Comments Yes 0 (1 standard drink = 0.6 oz pure alcoho l) wine few times/wk Sex Assigned at Date Recorded Female 12/20/2018 4:10 PM CDT documented as of this encounter Miscellaneous Notes Telephone Encounter - Nohemy Carpenter LPN - 12/14/2018 1:12 PM CDT Reason for Visit: Discuss MRI and pelvic floor exercises Diagnosis: urinary urge incontinence Contact Patient: n/a Rooming Requirements: ask about symptoms Nohemy Carpenter LPN 12/14/18 1:12 PM documented in this encounter Plan of Treatment Upcoming Encounters Date Type Specialty Care Team Description 09/10/2022 Office Visit Internal Medicine Margot Branham MD [address] [place] [phone] (Wo rk) documented as of this encounter Visit Diagnoses Not on filedocumented in this encounter Additional Health Concerns Assessment Noted Time PHQ-9 Depression Total Score: 1 03/30/2018 7:10 AM CDT documented as of this encounter Care Teams Model Engine Mechanic Relationship Specialty Start Date End Date Lisseth Vang MD PCP - General 04/13/16 11/14/[address] [place], [place] [address] Carlota Landeros MD MD Urology 04/10/[address] [place], [place] [phone] Lisseth Vang MD PCP Family Practice 03/30/16 11/14/[address] [place], [place] [phone] Michelle Montana, MODESTA Registered Nurse Urology 05/07/17 Anh Costa APRN CORE ANALYST Nurse Practitioner Nurse Practitioner 10/07 Martinez Galicia MD MD Ophthalmology 04/18/18 [address] [place], [place] [phone] Sabino Romano DPM MD Podiatry 08/11/[address] [place] [phone] documented as of this encounter
--- OUTSIDE RECORDS SUMMARY | 2022-07-30 19:25 | XMS_ITS | Encounter Summary ---
:1945 Author Organization [facility] Address [address] [place] [address]. [place] [address] Care Team Providers Name Role Phone Lisseth Vang MD Primary Care Provider Carlota Landeros MD Unavailable Lisseth Vang MD Unavailable Michelle Montana RN Unavailable Anh Costa APRN CORE MACHINE TENDER Unavailable Unavailable Martinez Galicia MD Unavailable Sabino Romano DPM Unavailable Encounter Details Date Type Department Care Team Description 10/05/2018 Travel Social History Tobacco Use Types Packs/Day [...] Office Visit Internal Medicine Margot Branham MD [address] [place] [address] (Wo rk) documented as of this encounter Visit Diagnoses Not on filedocumented in this encounter Additional Health Concerns Assessment Noted Time PHQ-9 Depression Total Score: 1 03/30/2018 7:10 AM CDT documented as of this encounter Care Teams Bottle Labeler Relationship Specialty Start Date End Date Lisseth Vang MD PCP - General 04/13/16 11/14/[address] [place] [address] Carlota Landeros MD MD Urology 04/10/[address] [place], [place] [address] Lisseth Vang MD PCP Family Practice 03/30/16 11/14/[address] [place], [place] [phone] Michelle Montana, MODESTA Registered Nurse Urology 05/07/17 Anh Costa APRN CORE MACHINE TENDER Nurse Practitioner Nurse Practitioner 10/07 Martinez Galicia MD MD Ophthalmology 04/18/18 [address] [place] [address] Sabino Romano DPM MD Podiatry 08/11/18 [facility] [address] [phone] documented as of this encounter
--- OUTSIDE RECORDS SUMMARY | 2022-07-30 19:25 | XMS_ITS | Encounter Summary ---
:1945 Author Organization [facility] Address [address] [place] [address]. [place] [address] Care Team Providers Name Role Phone Lisseth Vang MD Primary Care Provider Carlota Landeros MD Unavailable Lisseth Vang MD Unavailable Michelle Montana RN Unavailable Anh Costa APRN GERIATRICS PHYSICIAN Unavailable Unavailable Martinez Galicia MD Unavailable Sabino Romano DPM Unavailable Encounter Details Date Type Department Care Team Description 02/07/2019 [facility] Only [facility] Anh Costa hypertension Cardiovascular Disease CLAUDIA Marsh GERIATRICS PHYSICIAN Prevention [address] [place] [address] Social History Tobacco Use Types Packs/Day [...] Office Visit Internal Medicine LogMargot sadler MD [address] [place] [address] (Wo rk) documented as of this encounter Visit Diagnoses Diagnosis Essential hypertension Unspecified essential hypertension documented in this encounter Additional Health Concerns Assessment Noted Time PHQ-9 Depression Total Score: 1 03/30/2018 7:10 AM CDT documented as of this encounter Care Teams Production Line Worker Relationship Specialty Start Date End Date Lisseth Vang MD PCP - General 04/13/16 11/14/[address] [place], [place] [address] Carlota Landeros MD MD Urology 04/10/[address] [place] [address] Lisseth Vang MD PCP Family Practice 03/30/16 11/14/[address] [place], [place] [address] Michelle Montana, MODESTA Registered Nurse Urology 05/07/17 Anh Costa APRN GERIATRICS PHYSICIAN Nurse Practitioner Nurse Practitioner 10/07 Martinez Galicia MD MD Ophthalmology 04/18/18 [address] [place], [place] [address] Sabino Romano DPM MD Podiatry 08/11/[address] [place] [phone] documented as of this encounter
--- OUTSIDE RECORDS SUMMARY | 2022-07-30 19:26 | XMS_ITS | Encounter Summary ---
:1945 Author Organization [place] Address [address] [place] [address]. [place] [address] Care Team Providers Name Role Phone Lisseth Vang MD Primary Care Provider Carlota Landeros MD Unavailable Lisseth Vang MD Unavailable Michelle Montana RN Unavailable Anh Costa APRN SOFTWARE DEVELOPMENT LEADER Unavailable Unavailable Martinez Galicia MD Unavailable Encounter Details Date Type Department Care Team Description 07/25/2018 [facility] Martinez Galicia Nucl ear sclerotic and Procedure MD Lili cataract, left Center [address] [facility] (Primary Dx) 9[address] [facility] [place], [place] 5th Floor [address] [place], [place] [phone] [address] (Work) [phone] Social History Tobacco Use Types Packs/Day Years [...] Mcknight RN - 07/25/2018 10:25 AM CDT [facility] Home Care [...] appointment with your doctor tomorrow at the [facility] ([phone]). Bring all your prescribed eye drops with you to this follow-up appointment. ??? If you take glaucoma medications, bring them with you to your follow-up appointment tomorrow. ??? Use medication exactly as prescribed by your doctor. You may restart your regular home medications. ??? Call your doctor???s office at [phone] if any of the following should occur: - Any sudden vision changes, including decreased vision - Nausea or severe headache - Increase in pain that is not controlled with Acetaminophen (Tylenol) or Ibuprofen (Advil) - Signs of infection (pus, increasing redness or tenderness) - Severe sensitivity to light - An increase in floaters (black spots in front of your vision) [facility] Home Care [...] 24 hours. Your doctor is: Dr. Martinez Galicia, Ophthalmology: [phone] Or dial [phone] and ask for the resident juvenile corrections officer for: Ophthalmology For emergency care, call the: [facility]: [phone] (TTY for hearing impaired: [phone]) documented in this encounter Medications at Time [...] Hyperlipidemia, unspecified hyperlipidemia type azelastine (ASTELIN) 0.1 [place] 2 sprays into 90 mL 11 08/12/2018 [...] 2 times daily capsule fluticasone (FLONASE) 50 [place] 2 sprays into 1 Bottle 08/12/2018 MCG/ACT sprayIndications: both nostrils daily Chronic [...] times daily creamIndications: External hemorrhoids ipratropium (ATROVENT) [place] 2 sprays into 1 Box 11/2017/2019 0.06 % sprayIndications: both nostrils 4 Chronic [...] implant Left eye. SURGEON: Martinez Galicia M.D. Clinical Program Director: Ermias Russell MD INDICATIONS: The patient Yamileth [...] Implant Name Type Inv. Item Serial No. Automatic Die Cutting Machine Operator Lot No. LRB No. Used EYE IMP IOL CHALO PCL TECNIS [id number] 21.5 Lens/Eye Implant EYE IMP IOL CHALO PCL TECNIS [id number] 21.5 [id number] [employer] Left 1 Attending Physician Procedure Attestation: I was present for the entire procedure Martinez Galicia MD Esthetician Facialist, Comprehensive Ophthalmology Department of Ophthalmology and Visual Neurosciences [facility] documented in this encounter Plan of Treatment Upcoming Encounters Date Type Specialty Care Team Description 09/10/2022 Office Visit Internal Medicine LogMargot sadler MD [address] [address] (Wo rk) documented as of this encounter Procedures Procedure Name Priority Date/Time Associated Diagnosis Comme nts PHACOEMULSIFICATION, 07/25/2018 10:04 AM Cataracts CATARACT, WITH STANDARD CDT INTRAOCULAR LENS IMPLANT INSERTION Special Needs Latex Allergy documented in this encounter Visit Diagnoses Diagnosis Nuclear sclerotic cataract, left - Prima ry documented in this encounter Administered Medications Inactive Administered Medications - up to 3 most recent administrations Medication Order MAR Action Action Date Dose Rate Site acetaminophen (TYLENOL) tablet 975 Given 07/25/2018 9:14 AM CDT 975 mg mg 975 mg, Oral, ONCE, On Wed07/25/18 at 0900, For 1 dose, Maximum acetaminophen dose from all sources = 75 mg/kg/day not to exceed 4 grams/day., Pre-procedure cyclopentolate (CYCLOGYL) 1 % ophthalmic Given 07/25/2018 [...] Wed07/25/18 at 0900, Until Wed07/25/18 at 1101 phenylephrine (MYDFRIN /ALESSIO-SYNEPHRINE) 2.5 % Given 9:18 AM CDT 1 drop ophthalmic solution 1 drop 1 drop, Ophthalmic, EVERY 5 MIN PRIOR TO SURGERY, Starting on Wed07/25/18 at 0853, For 3 doses, Instill into operative eye(s), starting upon admission., Pre-procedure Given 07/25/2018 9:13 AM CDT 1 drop Given 07/25/2018 9:08 AM CDT 1 drop proparacaine (ALCAINE) 0.5 % ophthalmic Given 07/25/2018 [...] patch delivers 1 mg of scopolamine., Pre-procedure tropicamide (MYDRIACYL) 1 % ophthalmic Given 07/25/2018 [...] documented as of this encounter Care Teams Hardware Trainer Relationship Specialty Start Date End Date Lisseth Vang MD PCP - General 04/13/16 11/14/[address] [place], [place] [address] Carlota Landeros MD MD Urology 04/10/[address] [place], [place] [address] Lisseth Vang MD PCP Family Practice 03/30/16 11/14/[address] [place], [place] [address] Michelle Montana, RN Registered Nurse Urology 05/07/17 Anh Costa APRN SOFTWARE DEVELOPMENT LEADER Nurse Practitioner Nurse Practitioner 10/07 Martinez Galicia MD MD Ophthalmology 04/18/[address] [place] [id number] documented as of this encounter
--- OUTSIDE RECORDS SUMMARY | 2022-07-30 19:26 | XMS_ITS | Encounter Summary ---
:1945 Author Organization [facility] Address [address] [place] [address]. [place] [address] Care Team Providers Name Role Phone Lisseth Vang MD Primary Care Provider Carlota Acuña MD Unavailable Lisseth Vang MD Unavailable Michelle Montana RN Unavailable Anh Costa APRN CURING ROOM WORKER Unavailable Unavailable Martinez Galicia MD Unavailable Reason for Visit Reason Comments Consult Seasonal Allergic Rhinitis Encounter Details Date Type Department Care Team Description 07/18/2018 Office Visit [facility] Saulo Hillman rhinitis [facility] Armando[facility] (Primary Dx) [facility] [address] [address] [place], [place] [phone] [facility] Social History Tobacco Use Types Packs/Day Years Used Date Smoking Tobacco: Never Smokeless Tobacco: Never Alcohol Use Standard Drinks/Week Comments Yes 0 (1 standard drink = 0.6 oz pure alcoho l) wine few times/wk Sex Assigned at Date Recorded Female 12/20/2018 4:10 PM CDT documented as of this encounter Last Filed Vital Signs Vital Sign Reading Time Taken Comments Blood Pressure 112/67 07/18/2018 12:13 PM CDT Pulse 60 07/18/2018 12:13 PM CDT Temperature - - Respiratory Rate 16 07/18/2018 12:13 PM CDT Oxygen Saturation 96% 07/18/2018 12:13 PM RA CDT Inhaled Oxygen Concentration - - Weight 68.8 kg (151 lb 11.2 oz) 07/18/2018 12:13 PM CDT Height 168.9 cm (5' 6.5) 07/18/2018 12:13 PM CDT Body Mass Index 24.12 07/18/2018 12:13 PM CDT documented in this encounter Progress Notes Saulo Hillman MD - 07/18/2018 12:15 PM CDT Reason for Visit Yamileth Sheikh is a 72 year old female who is referred by Lisseth Vang for rhinitis. Allergy HPI 20 years of lots of junk that seems to be dripping down and cause a cough. Often clogged nose. It ismostly the right that is bad. When she lays down it is worse. She tried to lie down on her left. Onesinus infection per year. She is going to have a turbinate reduction soon (Jul 29) and wants to get off nasal sprays. She was on astelin in the past and ipratropium bromide. She is on fluticasone now. She was on allergy pills in the past and no great benefit. She thinks 30 years ago was allergy tested. All negative. Breathing into the lungs is fine. Social: No pets. No smoking and she never smoked. No frequent exposures to irritants. Family hx: son with cat allergy. ROS: cataract removed this morning. The patient was seen and examined by Saulo Hillman MD Current Outpatient Prescriptions Medication ??? amoxicillin (AMOXIL) 500 MG capsule ??? aspirin 81 MG tablet ??? atorvastatin (LIPITOR) 10 MG tablet ??? azelastine (ASTELIN) 0.1 % spray ??? B Complex Vitamins (VITAMIN-B COMPLEX PO) ??? Calcium-Magnesium (ASHLYN/MAG CITRATE) 250-125 MG TABS ??? cholecalciferol (VITAMIN D3) 1000 UNIT tablet ??? Chromium-Cinnamon (CINNAMON PLUS CHROMIUM PO) ??? ciclopirox (LOPROX) 0.77 % cream ??? estradiol (ESTRACE VAGINAL) 0.1 MG/GM cream ??? estradiol (ESTRING) 2 MG vaginal ring ??? fish oil-omega-3 fatty acids (OMEGA 3) 1000 MG capsule ??? fluticasone (FLONASE) 50 MCG/ACT spray ??? GARLIC PO ??? Adin, Zingiber officinalis, (ADIN PO) ??? Glucosamine-Chondroitin (GLUCOSAMINE CHONDR COMPLEX PO) ??? hydrocortisone (ANUSOL-HC) 2.5 % rectal cream ??? ipratropium (ATROVENT) 0.06 % spray ??? irbesartan (AVAPRO) 150 MG tablet ??? LYSINE PO ??? Magnesium 200 MG TABS ??? ofloxacin (OCUFLOX) 0.3 % ophthalmic solution ??? OTHER MEDICAL SUPPLIES ??? prednisoLONE acetate (PRED FORTE) 1 % ophthalmic susp ??? Probiotic Product (PROBIOTIC DAILY PO) ??? TURMERIC PO ??? valACYclovir (VALTREX) 1000 mg tablet No current facility-administered medications for this visit. Facility-Administered Medications Ordered in Other Visits Medication ??? lactated ringers infusion ??? meperidine (DEMEROL) injection 12.5 mg ??? naloxone (NARCAN) injection 0.1-0.4 mg ??? ondansetron (ZOFRAN-ODT) ODT tab 4 mg Or ??? ondansetron (ZOFRAN) injection 4 mg ??? ORAL Pain Medications - may administer as ordered by surgeon for take home use ??? prochlorperazine (COMPAZINE) injection 5 mg Allergies Allergen Reactions ??? Codeine Nausea and [...] ??? Tape [Adhesive Tape] Rash Including steri-strips Social History Social History ??? Marital status: Single Spouse name: N/A ??? Number of children: N/A ??? Years of education: N/A Occupational History ??? 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 Smoking status: Never Smoker ??? Smokeless tobacco: Never Used ??? Alcohol use Yes Comment: wine few times/wk ??? Drug use: No ??? Sexual activity: Not Currently Other Topics Concern ??? Caffeine Concern Yes 1 c/day ??? Sleep Concern Yes gets hot at night ??? Exercise Yes 30 min walking daily - weights+ ??? Seat Belt Yes Social History Narrative 1 son - - still working at [employer] - ethiopian as a second language - lives in [...] Yes March 29, 2018 Addison Martinez LPN Past Medical History: Diagnosis Date ??? Benign [...] ??? Vitamin D deficiency Past Surgical History: Procedure Laterality Date ??? BREAST BIOPSY, RT/LT Breast Biopsy RT/LT ??? C TOTAL HIP ARTHROPLASTY Right 2006 right ??? C/SECTION, CLASSICAL 1978 , Classical ??? CYSTOSCOPY, SLING TRANSVAGINAL N/A 03/26/2015 Procedure: [...] ACUÑA;Location:[facility] OR ??? MAMMOPLASTY REDUCTION 1989 ??? REPLACE GENERATOR STIMULATOR (LOCATION) Left 04/27/2017 Procedure: REPLACE GENERATOR STIMULATOR (LOCATION); Replacement of Left Interstim Battery Latex Allergy; Surgeon: Carlota Acuña MD; Location: [facility] ??? SURGICAL HISTORY OF - ? Nasal passages microwaved. Dr Baer ENT ??? uteroscopy 05/04/2018 Family History Problem Relation Age of Onset [...] ??? Myocardial Infarction Maternal Grandfather 82 of [place] ??? Cardiovascular Paternal Grandmother age 65 of heart problems ??? Pneumonia Paternal Grandfather age 70 after flu ??? No Known Problems Son ??? Macular Degeneration No family hx of ROS A complete ROS was otherwise negative except as noted in the HPI and the end of the note. BP 112/67 Pulse 60 Resp 16 Ht 1.689 m (5' 6.5) Wt 68.8 kg (151 lb 11.2 oz) SpO2 96% BMI24.12 kg/m2 Exam: GENERAL APPEARANCE: Well developed, well nourished, alert, and in no apparent distress. EYES: L. PERRL, EOMI, conjunctiva clear non-injected. Right closed and covered d/t surgery. HENT: Nasal mucosa with mild edema on the left and no discharge. No nasal polyps. No facial tenderness. EARS: Canals clear, TMs normal MOUTH: Oral mucosa is moist, without any lesions, no tonsillar enlargement, no oropharyngeal exudate. RESP: Good air flow throughout. No crackles. No rhonchi. No wheezes. CV: Normal S1, S2, regular rhythm, normal rate. No murmur. No rub. No gallop. No LE edema. MS: Extremities normal. No clubbing. No cyanosis. SKIN: No rashes noted NEURO: Speech normal, normal strength and tone, normal gait and stance PSYCH: Normal mentation, orientation to person, place, and time. Results: 43 percutaneous and 2 intradermal (dust mites) environmental allergen (and 2 controls) extracts placed by GENTRY and read by MD. Assessment and plan: Yamileth has chronic rhinitis and IgE mediated skin testing is negative for all allergens. I do not feel that antihistamines including astelin will provide her much benefit. She will continue to work with ENT. Answers for HPI/ROS submitted by the patient on 07/15/2018 General Symptoms: No Skin Symptoms: No HENT Symptoms: Yes EYE SYMPTOMS: No HEART SYMPTOMS: No LUNG SYMPTOMS: No INTESTINAL SYMPTOMS: No URINARY SYMPTOMS: No GYNECOLOGIC SYMPTOMS: No BREAST SYMPTOMS: No SKELETAL SYMPTOMS: Yes BLOOD SYMPTOMS: No NERVOUS SYSTEM SYMPTOMS: No MENTAL HEALTH SYMPTOMS: No Ear pain: No Ear discharge: No [...] pain: Yes Bone pain: No Muscle cramps: Yes Muscle weakness: Yes Joint stiffness: No Bone fracture: No documented in this encounter Nursing Notes Carole Li - 07/18/2018 12:15 PM CDT Chief Complaint Patient presents with ??? Consult Seasonal Allergic Rhinitis Carole Li CMA documented in this encounter Plan of Treatment Upcoming Encounters Date Type Specialty Care Team Description 09/10/2022 Office Visit Internal Medicine Margot Branham MD [address] [place] [id number] (Wo rk) documented as of this encounter Procedures Procedure Name Priority Date/Time Associated Diagnosis Comme nts [facility] INTRACUT SKIN Routine 07/18/2018 1:51 PM CDT Chronic rhini tis TESTS,ALLERGENS [facility] ALLERGY SKIN Routine 07/18/2018 1:51 PM CDT Chronic rhinit is TESTS,ALLERGENS documented in this encounter Visit Diagnoses Diagnosis Chronic rhinitis - Primary documented in this encounter Additional Health Concerns Assessment Noted Time PHQ-9 Depression Total Score: 1 03/30/2018 7:10 AM CDT documented as of this encounter Care Teams Information Scientist Relationship Specialty Start Date End Date Lisseth Vang MD PCP - General 04/13/16 11/14/[address] [place], [place] [phone] Carlota Acuña MD MD Urology 04/10/[address] [place], [place] [address] Lisseth Vang MD PCP Family Practice 03/30/16 11/14/[address] [place], [place] [address] Michelle Montana RN Registered Nurse Urology 05/07/17 Anh Costa APRN CURING ROOM WORKER Nurse Practitioner Nurse Practitioner 10/07 Martinez Galicia MD MD Ophthalmology 04/18/18 [address] [place], [place] [phone] documented as of this encounter
--- OUTSIDE RECORDS SUMMARY | 2022-07-30 19:26 | XMS_ITS | Encounter Summary ---
:1945 Author Organization [facility] Address [address] [place] [address]. [place] [address] Care Team Providers Name Role Phone Lisseth Vang MD Primary Care Provider Carlota Landeros MD Unavailable Lisseth Vang MD Unavailable Michelle Montana RN Unavailable Anh Costa APRN VMWARE ADMINISTRATOR Unavailable Unavailable Martinez Galicia MD Unavailable Encounter Details Date Type Department Care Team Description 07/04/[address] [facility] Eye Martinez Galicia e nuclear sclerosis (Primary Dx); Clinic - Latoya Pearson MD Regular astigmatism Moat Wangensteen [address] [place] [address] Social History Tobacco Use Types [...] 09/10/2022 Office Visit Internal Medicine LogeaisMargot MD [address] [place], [place] [address] (Wo rk) documented as of this encounter Results Corneal Topography OU (both eyes) (07/06/2018 12:09 PM CDT) Martinez Paige MD - 07/06/2018 12 :09 PM CDT Performed by: AB . Patient cooperation: Reliable . Right Eye Astigmatism: Irregular . Left Eye Astigmatism: Irregular . Martinez Galicia MD OPHTHALMOLOGY IOL Biometry w/ IOL calc OU (both eye) (07/06/2018 12:08 PM CDT) Martinez Paige MD - 07/06/2018 12 :08 PM CDT Performed by: AB . Patient cooperation: Reliable . IOL Master obtained. Notes IOLS reviewed, sufficient for lens selec tion Martinez Galicia MD OPHTHALMOLOGY documented in this encounter Visit Diagnoses Diagnosis Senile nuclear sclerosis - Primary Regular astigmatism Nuclear senile cataract of both eyes Irregular astigmatism of both eyes Irregular astigmatism documented in this encounter Additional Health Concerns Assessment Noted Time PHQ-9 Depression Total Score: 1 03/30/2018 7:10 AM CDT documented as of this encounter Care Teams Magento Web Developer Relationship Specialty Start Date End Date Lisseth Vang MD PCP - General 04/13/16 11/14/[address] [place], [place] [phone] Carlota Landeros MD MD Urology 04/10/[address] [place] [address] Lisseth Vang MD PCP Family Practice 03/30/16 11/14/[address] [place], [place] [address] Michelle Montana, MODESTA Registered Nurse Urology 05/07/17 Anh Costa APRN VMWARE ADMINISTRATOR Nurse Practitioner Nurse Practitioner 10/07 Martinez Galicia MD MD Ophthalmology 04/18/[address] [place] [phone] documented as of this encounter
--- OUTSIDE RECORDS SUMMARY | 2022-07-30 19:26 | XMS_ITS | Encounter Summary ---
:1945 Author Organization [facility] Address [address] [place] [address]. [place] [address] Care Team Providers Name Role Phone Lisseth Vang MD Primary Care Provider Carlota Landeros MD Unavailable Lisseth Vang MD Unavailable Michelle Montana RN Unavailable Anh Costa APRN BLACKENER Unavailable Unavailable Reason for Visit Diagnostic Imaging Mammo - Closed Specialty Diagnoses / Procedures Referred By Contact Refer red To Contact Diagnoses Visit for screening mammogram Lisseth Vang MD Procedures MA Screen Bilateral w/[place] MA Screening Digital Bilateral [address] [place], [place] [address] Referral ID Status Reason Start Date Expiration Date Visits Requ ested Visits Authorized [id number] Closed 03/24/2018 03/24/2019 1 1 Encounter Details Date Type Department Care Team Description 04/13/2018 Radiant Appointment [facility] Visit for screening mammogram; Imaging Breast cancer screening [address] [facility], [address]nd [place] [address] Social History Tobacco Use Types [...] Team Description 09/10/2022 Office Visit Internal Medicine Logdoroteo Margot, MD [address] [address] (Wo rk) documented as of this encounter Procedures Procedure Name Priority Date/Time Associated Diagnosis Comme nts MA SCREENING Routine 04/13/2018 8:25 AM Breast cancer Results for this BILATERAL W/ [place] CDT screening procedure are in the results section. documented in this encounter Results MA Screen Bilateral w/[place] (04/13/2018 8:25 AM CDT) Anatomical Region Laterality Modality Breast Bilateral Mammography Specimen (Source) Anatomical Location Collection Method / Collectio n Time Received Time / Laterality Volume Impressions 04/14/2018 8:33 AM CDT IMPRESSION: BI-RADS CATEGORY: 1 - ??NEGATIVE. RECOMMENDED FOLLOW-UP: Annual Mammograph y Results to be sent to the patient. Based on the patient history questionnai re completed prior to the mammogram, the NCI risk calculator and t he NCCN indications for genetic screening, the patient may be at an increased risk for breast cancer and/or have an indication for gen etic screening. ??She has been sent a letter informing her of this and a phone number to schedule an appointment in a Breast [facility] if she so desires. Code: JOE I have personally reviewed the examinati on and initial interpretation and I agree with the findings. PERI ADAM MD Narrative 04/14/2018 8:33 AM CDT EXAMINATION: Bilateral digital screening mammography and bilateral digital tomosynthesis with computer operator d detection. COMPARISON: 12/31/2014, 11/27/2013, 12/10/19, 10/08/2010 HISTORY/FAMILY HISTORY: No symptoms, rou randy screening. Family history of ovarian cancer in niece, in her 40s. TECHNIQUE: ??Tomosynthesis BREAST DENSITY: Scattered fibroglandular densities. COMMENTS: There has been no significant change. ?? Procedure Note Peri Adam MD - 04/14/2018 EXAMINATION: Bilateral digital screening mammography and bilateral digital tomosynthesis with computer operator d detection. COMPARISON: 12/31/2014, 11/27/2013, 12/10/19, 10/08/2010 HISTORY/FAMILY HISTORY: No symptoms, rou randy screening. Family history of ovarian cancer in niece, in her 40s. TECHNIQUE: Tomosynthesis BREAST DENSITY: Scattered fibroglandular densities. COMMENTS: There has been no significant change. IMPRESSION: BI-RADS CATEGORY: 1 - NEGATI VE. RECOMMENDED FOLLOW-UP: Annual Mammograph y Results to be sent to the patient. Based on the patient history questionnai re completed prior to the mammogram, the NCI risk calculator and t he NCCN indications for genetic screening, the patient may be at an increased risk for breast cancer and/or have an indication for gen etic screening. She has been sent a letter informing her of this and a phone number to schedule an appointment in a Breast [facility] if she so desires. Code: JOE I have personally reviewed the examinati on and initial interpretation and I agree with the findings. PERI ADAM MD Lisseth Vang MD IMG MAMMOGRAPHY ORDERABLES documented in this encounter Visit Diagnoses Diagnosis Visit for screening mammogram Other screening mammogram documented in this encounter Additional Health Concerns Assessment Noted Time PHQ-9 Depression Total Score: 1 03/30/2018 7:10 AM CDT documented as of this encounter Care Teams [employer] Chemist Relationship Specialty Start Date End Date Lisseth Vang MD PCP - General 04/13/16 11/14/[address] [place], [place] [address] Carlota Landeros MD MD Urology 04/10/[address] [place] [address] Lisseth Vang MD PCP Family Practice 03/30/16 11/14/[address] [place], [place] [phone] Michelle Montana, RN Registered Nurse Urology 05/07/17 Anh Costa, DENTAL SURGERY DOCTOR BLACKENER Nurse Practitioner Nurse Practitioner 10/07 documented as of this encounter
--- OUTSIDE RECORDS SUMMARY | 2022-07-30 19:26 | XMS_ITS | Encounter Summary ---
:1945 Author Organization [facility] Address [address] [place] [address]. [place] [address] Care Team Providers Name Role Phone Lisseth Vang MD Primary Care Provider Carlota Landeros MD Unavailable Lisseth Vang MD Unavailable Michelle Montnaa RN Unavailable Anh Costa APRN MANAGER TRANSPORT Unavailable Unavailable Martinez Galicia MD Unavailable Reason for Visit Reason Comments Sleep Problem PSG (Routine) - Closed Specialty Diagnoses / Procedures Referred By Contact Refer red To Contact Sleep Medicine Procedures Sleep Center PSG [facility] [address] [facility] [address] [place] [address] Phone: Referral ID Status Reason Start Date Expiration Date Visits Requ ested Visits Authorized [id number] Closed 06/19/2018 06/19/2019 1 1 Encounter Details Date Type Department Care Team Description 06/19/2018 Therapy Visit [facility] Ess ential hypertension; [facility] Suspected sleep apnea; [address] [facility] Chronic fatigue [address] [place] [address] Social History Tobacco Use Types Packs/Day Years Used Date Smoking Tobacco: Never Smokeless Tobacco: Never Alcohol Use Standard Drinks/Week Comments Yes 0 (1 standard drink = 0.6 oz pure alcoho l) wine few times/wk Sex Assigned at Date Recorded Female 12/20/2018 4:10 PM CDT documented as of this encounter Procedure Notes Agus Wu MD - 06/19/2018 8:30 PM CDTAssociated Order(s): ARCHITECT [facility]AL COMPREHENSIVE SLEEP Images from the original note were not included. SLEEP STUDY INTERPRETATION DIAGNOSTIC POLYSOMNOGRAPHY REPORT Patient: IMELDA GARCIA Date of : 1945 Study Date: 06/19/2018 Referring Provider: CLAUDIA Costa CNP, Lynn Gail Ordering Provider: MD Wu Rakesh Indications for Polysomnography: The patient is a 72 y old Female who is 5' 6 and weighs 170.0 lbs.Her BMI is 27.3, [place] sleepiness scale 4.0 and neck circumference is 36.0 cm. Relevant medical history includes hypertension. A diagnostic polysomnogram was performed to evaluate for sleep apnea. Polysomnogram Data: A full night polysomnogram recorded the standard physiologic parameters including EEG, EOG, EMG, ECG, nasal and oral airflow. Respiratory parameters of chest and abdominal movementswere recorded with respiratory inductance plethysmography. Oxygen saturation was recorded by pulse oximetry. Hypopnea scoring rule used: 1B 4%. Sleep Architecture: Normal. The total recording time of the polysomnogram was 450.9 minutes. The total sleep time was 348.5 minutes. Sleep latency was normal at 16.1 minutes without the use of a sleep aid. REM latency was 67.0 minutes. Arousal index was normal at 10.3 arousals per hour. Sleep efficiency was decreased at 77.3%. Wake after sleep onset was 85.0 minutes. The patient spent 1.6% of total sleep time in Stage N1, 52.2%in Stage N2, 24.1% in Stage N3, and 22.1% in REM. Time in REM supine was - minutes. Respiration: Negative for sleep apnea. ??? Events ? The polysomnogram revealed a presence of - obstructive, 6 central, and - mixed apneas resulting in an apnea index of 1.0 events per hour. There were - obstructive hypopneas and - central hypopneas resulting in an obstructive hypopnea index of - and central hypopnea index of - events per hour. The combined apnea/hypopnea index was 1.0 events per hour (central apnea/hypopnea index was 1.0 events per hour). The REM AHI was 4.7 events per hour. The supine AHI was - events per hour. The RERAindex was 0.3 events per hour. The RDI was 1.4 events per hour. ??? Snoring - was reported as absent. ??? Respiratory rate and pattern - was notable for normal respiratory rate and pattern. ??? Sustained Sleep Associated Hypoventilation - Transcutaneous carbon dioxide monitoring was not used, however significant hypoventilation was not suggested by oximetry. ??? Sleep Associated Hypoxemia - (Greater than 5 minutes O2 sat at or below 88%) was not present. Baseline oxygen saturation was 96.2%. Lowest oxygen saturation was 92.7%. Time spent less than or equalto 88% was 0 minutes. Time spent less than or equal to 89% was 0 minutes. Movement Activity: There was no significant movement abnormality. ??? Periodic Limb Activity - There were 5 PLMs during the entire study. The PLM index was 0.9 movements per hour. The PLM Arousal Index was - per hour. ??? REM EMG Activity - Excessive transient/sustained muscle activity was not present. ??? Nocturnal Behavior - Abnormal sleep related behaviors were not noted during/arising out of NREM / REM sleep. ??? Bruxism - None apparent. Cardiac Summary: Sinus rhythm with isolated PVCs. The average pulse rate was 62.8 bpm. The minimum pulse rate was 48.1 bpm while the maximum pulse rate was 98.3 bpm. Arrhythmias were noted. Assessment: ??? This sleep study is negative for clinically relevant sleep apnea or other sleep fragmenting conditions. The study included supine and non-supine sleep but did not include supine REM. Recommendations: ??? Patient can be reassured regarding absence of sleep apnea. . ??? Suggest optimizing sleep schedule and avoiding sleep deprivation. Diagnostic Codes: Unspecified Sleep Disturbance G47.9 06/19/2018 [facility] Sleep Study (170.0 lbs) - AHI 1.0, RDI 1.4, Supine AHI -, REM AHI 4.7,Low O2 92.7%, Time Spent ?88% 0 minutes / Time Spent ?89% 0 minutes. Electronically Signed By: Agus Wu MD 06/24/2018 Range(%) Time in range (min) 0.0 - 89.0 - 0.0 - 88.0 - Stage Min(mm Hg) Max(mm Hg) Wake - - NREM(1+2+3) - - REM - - Range(mmHg) Time in range (min) 55.0 - 100.0 - Excluded data <20.0 & >65.0 451.5 documented in this encounter Plan of Treatment Upcoming Encounters Date Type Specialty Care Team Description 09/10/2022 Office Visit Internal Medicine LogeaisMargot MD [address] [id number] (Wo rk) documented as of this encounter Procedures Procedure Name Priority Date/Time Associated Comments Diagnosis ARCHITECT NAVAL COMPREHENSIVE Routine 06/19/2018 8:36 PM Essential Resu lts for this SLEEP CDT hypertension procedure are in Suspected sleep the results apnea section. Chronic fatigue documented in this encounter Results Comprehensive Sleep Study (06/19/2018 8:36 PM CDT) Analysis Performed At Patho logist Time Signature ARCHITECT NAVAL Comprehensive [facility] Sleep Specimen (Source) Anatomical Collection Method Collection Time Re ceived Time Location / / Volume Laterality 06/19/2018 8:36 PM CDT Narrative [facility] - 06/27/2018 10:48 AM CDT Agus Wu MD ? 06/27/2018 ??9:29 AM SLEEP STUDY INTERPRETATION DIAGNOSTIC POLYSOMNOGRAPHY REPORT Patient: IMELDA GARCIA Date of : 1945 Study Date: 06/19/2018 Referring Provider: CLAUDIA Costa CNP, Lynn Gail Ordering Provider: MD Wu Rakesh Indications for Polysomnography: The laureen rubio is a 72 y old Female who is 5' 6 and weighs 170.0 lbs. Her B PA is 27.3, [place] sleepiness scale 4.0 and neck circumfere nce is 36.0 cm. Relevant medical history includes hypertension. A diagnostic polysomnogram was performed to evaluate for sleep apne a. Polysomnogram Data: A full night polysom nogram recorded the standard physiologic parameters includin g EEG, EOG, EMG, ECG, nasal and oral airflow. Respiratory para meters of chest and abdominal movements were recorded with r espiratory inductance plethysmography. Oxygen saturation was r ecorded by pulse oximetry. Hypopnea scoring rule used: 1B 4%. Sleep Architecture: Normal. The total recording time of the polysomn ogram was 450.9 minutes. The total sleep time was 348.5 minutes. Sleep latency was normal at 16.1 minutes without the use of a sle ep aid. REM latency was 67.0 minutes. Arousal index was normal a t 10.3 arousals per hour. Sleep efficiency was decreased at 77.3%. Wake after sleep onset was 85.0 minutes. The patient spent 1.6% of total sleep time in Stage N1, 52.2% in Stage N2, 24.1% in St age N3, and 22.1% in REM. Time in REM supine was - minutes. Respiration: Negative for sleep apnea. ? Events ? The polysomnogram revealed a presence of - obstructive, 6 central, and - mixed apne as resulting in an apnea index of 1.0 events per hour. There were - obstructive hypopneas and - central hypopneas resulting in an obstructive hypopnea index of - and central hypopnea index of - events per hour. The combined apnea/hypopnea index was 1.0 ev ents per hour (central apnea/hypopnea index was 1.0 events per hour). The REM AHI was 4.7 events per hour. The supine AHI was - events per hour. The RERA index was 0.3 events per hour. ??Th e RDI was 1.4 events per hour. ? Snoring ? was reported as absent. ? Respiratory rate and pattern ? was notable for normal respiratory rate and pattern. ? Sustained Sleep Associated Hypoventila tion ? Transcutaneous carbon dioxide monitoring was not used, however significant hypoventilation was not suggested by oxi metry. ? Sleep Associated Hypoxemia ? (Greater than 5 minutes O2 sat at or below 88%) was not present. Baseline oxygen saturation was 96.2%. Lowest oxygen saturation was 92.7 %. Time spent less than or equal to 88% was 0 minutes. Time spen t less than or equal to 89% was 0 minutes. Movement Activity: There was no signific ant movement abnormality. ? Periodic Limb Activity ? There were 5 PLMs during the entire study. The PLM index was 0.9 movements p er hour. The PLM Arousal Index was - per hour. ? REM EMG Activity ? Excessive transient/sustained muscle activity was not present. ? Nocturnal Behavior ? Abnormal sleep related behaviors were not noted during/arising out of NREM / REM s leep. ? Bruxism ? None apparent. Cardiac Summary: Sinus rhythm with isola jimena PVCs. The average pulse rate was 62.8 bpm. The minimum pulse rate was 48.1 bpm while the maximum pulse rate wa s 98.3 bpm. ??Arrhythmias were noted. Assessment: ? This sleep study is negative for clini filiberto relevant sleep apnea or other sleep fragmenting conditi ons. The study included supine and non-supine sleep but did not include supine REM. Recommendations: ? Patient can be reassured regarding abs ence of sleep apnea. . ? Suggest optimizing sleep schedule and avoiding sleep deprivation. Diagnostic Codes: Unspecified Sleep Disturbance G47.9 06/19/2018 [facility] Sleep Stud y (170.0 lbs) - AHI 1.0, RDI 1.4, Supine AHI -, REM AHI 4.7, Low O2 92.7%, Time Spent ?88% 0 minutes / Time Spent ?89% 0 minutes. Electronically Signed By: Jody Myers 06/24/2018 Range(%) Time in range (min) 0.0 - 89.0 - 0.0 - 88.0 - Stage Min(mm Hg) Max(mm Hg) Wake - - NREM(1+2+3) - - REM - - Range(mmHg) Time in range (min) 55.0 - 100.0 - Excluded data <20.0 & >65.0 451.5 Procedure Note Agus Wu MD - 06/19/2018 8:30 PM CD T Images from the original note were not i ncluded. SLEEP STUDY INTERPRETATION DIAGNOSTIC POLYSOMNOGRAPHY REPORT Patient: IMELDA GARCIA Date of : 1945 Study Date: 06/19/2018 Referring Provider: CLAUDIA Costa CNP, Lynn Gail Ordering Provider: MD Bryce [facility] Indications for Polysomnography: The laureen rubio is a 72 y old Female who is 5' 6 and weighs 170.0 lbs. Her BMI is 27.3, [place] sleepiness scale 4.0 and neck circumference is 36.0 cm. Relevant medical history includes hypertension. A diagnostic polysomnogram was performed to evaluate for sleep apnea. Polysomnogram Data: A full night polysom nogram recorded the standard physiologic parameters including EEG, EOG, EMG, ECG, nasal and oral airflow. Respiratory parameters of chest and abdominal movements were recorded with respiratory inductance ple thysmography. Oxygen saturation was recorded by pulse oximetry. Hypopnea scoring rule used: 1B 4%. Sleep Architecture: Normal. The total recording time of the polysomn ogram was 450.9 minutes. The total sleep time was 348.5 minutes. Sleep latency was normal at 16.1 minutes without the use of a sleep aid. REM latency was 67.0 minutes. Arousal index was normal at 10.3 arousals per ho ur. Sleep efficiency was decreased at 77.3%. Wake after sleep onset was 85.0 minutes. The patient spent 1.6% of total sleep time in Stage N1, 52.2% in Stage N2, 24.1% in Stage N3, and 22.1% in REM. Time in REM supine was - m inutes. Respiration: Negative for sleep apnea. ? ? Events ? The polysomnogram revealed a presence of - obstructive, 6 central, and - mixed apneas resulting in an apnea index of 1.0 events per hour. There were - obstructive hypopneas and - central hypopneas resulting in an obstructive hypopnea index of - an d central hypopnea index of - events per hour. The combined apnea/hypopnea index was 1.0 events per hour (central apnea/hypopnea index was 1.0 events per hour). The REM AHI was 4.7 events per hour. The supine AHI was - events per hour. The RERA index was 0.3 events per hour. The RDI was 1.4 events per hour. ? ? Snoring - was reported as absent. ? ? Respiratory rate and pattern - was notable for normal respiratory rate and pattern. ? ? Sustained Sleep Associated Hypoventilation - Transcutaneous carbon dioxide monitoring was not used, however significant hypoventilation was not suggested by oximetry. ? ? Sleep Associated Hypoxemia - (Greater than 5 minutes O2 sat at or below 88%) was not present. Baseline oxygen saturation was 96.2%. Lowest oxygen saturation was 92.7%. Time spent less than or equal to 88% was 0 minutes. Time spent less than or equal to 89% was 0 minutes. Movement Activity: There was no signific ant movement abnormality. ? ? Periodic Limb Activity - There were 5 PLMs during the entire study. The PLM index was 0.9 movements per hour. The PLM Arousal Index was - per hour. ? ? REM EMG Activity - Excessive transient/sustained muscle activity was not present. ? ? Nocturnal Behavior - Abnormal sleep related behaviors were not noted during/arising out of NREM / REM sleep. ? ? Bruxism - None apparent. Cardiac Summary: Sinus rhythm with isola jimena PVCs. The average pulse rate was 62.8 bpm. The minimum pulse rate was 48.1 bpm while the maximum pulse rate was 98.3 bpm. Arrhythmias were noted. Assessment: ? ? This sleep study is negative for clinically relevant sleep apnea or other sleep fragmenting conditions. The study included supine and non-supine sleep but did not include supine REM. Recommendations: ? ? Patient can be reassured regarding absence of sleep apnea. . ? ? Suggest optimizing sleep schedule and avoiding sleep deprivation. Diagnostic Codes: Unspecified Sleep Disturbance G47.9 06/19/2018 [facility] Sleep Stud y (170.0 lbs) - AHI 1.0, RDI 1.4, Supine AHI -, REM AHI 4.7, Low O2 92.7%, Time Spent ?88% 0 minutes / Time Spent ?89% 0 minutes. Electronically Signed By: Jody yMers 06/24/2018 Range(%) Time in range (min) 0.0 - 89.0 - 0.0 - 88.0 - Stage Min(mm Hg) Max(mm Hg) Wake - - NREM(1+2+3) - - REM - - Range(mmHg) Time in range (min) 55.0 - 100.0 - Excluded data <20.0 & >65.0 451.5 Agus Wu MD PROCEDURES Performing Organization Address City/State/ZIP Code Phon e Number [facility] documented in this encounter Visit Diagnoses Diagnosis Essential hypertension Unspecified essential hypertension Suspected sleep apnea Chronic fatigue Other malaise and fatigue documented in this encounter Additional Health Concerns Assessment Noted Time PHQ-9 Depression Total Score: 1 03/30/2018 7:10 AM CDT documented as of this encounter Care Teams Geology Instructor Relationship Specialty Start Date End Date Lisseth Vang MD PCP - General 04/13/16 11/14/[address] [place], [place] [address] Carlota Landeros MD MD Urology 04/10/[address] [place], [place] [address] Lisseth Vang MD PCP Family Practice 03/30/16 11/14/[address] [place], [place] [address] Michelle Montana, MODESTA Registered Nurse Urology 05/07/17 Anh Costa APRN MANAGER TRANSPORT Nurse Practitioner Nurse Practitioner 10/07 Martinez Galicia MD MD Ophthalmology 04/18/18 [address] [place], [place] [address] documented as of this encounter
--- OUTSIDE RECORDS SUMMARY | 2022-07-30 19:26 | XMS_ITS | Encounter Summary ---
:1945 Author Organization [facility] Address [address] [place] [address]. [place] [address] Care Team Providers Name Role Phone Lisseth Vang MD Primary Care Provider Carlota Landeros MD Unavailable Lisseth Vang MD Unavailable Michelle Montana RN Unavailable Anh Costa APRN TELEPHONE TECHNICIAN Unavailable Unavailable Martinez Galicia MD Unavailable Reason for Referral Consultation - Closed Specialty Diagnoses / Procedures Referred By Contact Refer red To Contact Diagnoses Seasonal allergic rhinitis, unspecified chronicity, unspecified trigger Kendra Santillan MD [address] [place] [id number] Referral ID Status Reason Start Date Expiration Date Visits Requ ested Visits Authorized [id number] Closed 05/31/2018 05/31/2019 1 1 Consultation - Closed Specialty Diagnoses / Procedures Referred By Contact Refer red To Contact Diagnoses Nasal congestion Seasonal allergic rhinitis, unspecified chronicity, unspecified trigger Kendra Santillan MD [address] [place] [address] Referral ID Status Reason Start Date Expiration Date Visits Requ ested Visits Authorized [id number] Closed 05/31/2018 05/31/2019 1 1 Reason for Visit Reason Comments Consult widen nasal passage Encounter Details Date Type Department Care Team Description 05/31/2018 Office Visit [facility] Ear Nose and HsKendra wetzel Nasal congestion (Primary Dx); Throat MD Laurita Seasonal allergic rhinitis, unspecified chronicity, unspecified trigger [address] [place] [address] [phone] Social History Tobacco Use Types Packs/Day Years [...] - Inhaled Oxygen Concentration - - Weight 73.6 kg (162 lb 3.2 oz) 05/31/2018 1:02 PM CDT Height 168.9 cm (5' 6.5) 05/31/2018 1:02 PM CDT Body Mass Index 25.79 05/31/2018 1:02 PM CDT documented in this encounter Patient Instructions Patient InstructionsJoMargot carson RN - 05/31/2018 1:00 PM CDT Plan of care: Schedule an appt with Dr Hillman in Allergy Follow up with Dr Santillan on 07/29 at 3 for a turbinate reduction Clinic contact information: 1. To schedule an appointment or to speak to someone regarding your medical care, please call [phone], option #1 2. MODESTA Frost: [phone] 3. Surgery scheduling: Jordyn Hinds: [phone] Shanna Louis: [phone] 4. 5. [phone] documented in this encounter Progress Notes Kendra Santillan MD - 05/31/2018 1:00 PM CDT CC: chronic nasal congestion HPI: HISTORY OF PRESENT ILLNESS: The patient was referred to me by Dr. Honey Brewer for considerationof a repeat turbinate reduction. The patient reports that she underwent a turbinate reduction procedure in the past. She did find it to be helpful but recently has felt that her nasal congestion has returned. The right side is worse than the left side. She uses a topical nasal steroid spray as well asAstelin and Atrovent. Her main complaint is that despite the sprays, she still continues to have nasal congestion as well as significant postnasal drip. She often has to wake up in the middle of the night several times in order to reapply the sprays. PHYSICAL EXAMINATION: GENERAL: No acute distress. NOSE: Septum is slightly deviated to the right anteriorly due to bowing. Turbinates are moderately hypertrophied. Mucosa is healthy. ASSESSMENT AND PLAN: The patient presents with chronic nasal congestion and obstruction. I discussedwith her what is involved in a turbinate reduction procedure. We discussed risks of the procedure including epistaxis as well as failure to improve nasal breathing. I also discussed with her that a turbinate reduction procedure may not necessarily improve her postnasal drip. At this time, she would beinterested in pursuing a turbinate reduction procedure. Also, she did wonder if she has allergies and would like to be referred to an oven unloader. A referral was made for her today. I will see her back in clinic to perform the turbinate reductions. I spent a total of 25 minutes [id number] with Yamileth Sheikh during today's office visit. Over50% of this time was spent counseling the patient on and/or coordinating care as documented in my assessment and plan. documented in this encounter Nursing Alonzo Garcia - 05/31/2018 1:00 PM CDT Chief Complaint Patient presents with ??? Consult widen nasal passage Luke Rosado documented in this encounter Plan of Treatment Upcoming Encounters Date Type Specialty Care Team Description 09/10/2022 Office Visit Internal Medicine Margot Branham MD [address] [place] [phone] (Wo rk) Scheduled Referrals Name Type Priority Associated Diagnoses Order S chedule ALLERGY/ASTHMA ADULT Referral Routine Nasal conge stion Ordered: 05/31/2018 REFERRAL Seasonal allergic rhinitis, unspecified chronicity, unspecified trigger ALLERGY/ASTHMA ADULT Referral Routine Seasonal allergic Or dered: 05/31/2018 REFERRAL rhinitis, unspecified chronicity, unspecified trigger documented as of this encounter Visit Diagnoses Diagnosis Nasal congestion - Primary Other diseases of nasal cavity and sinus es Seasonal allergic rhinitis, unspecified chronicity, unspecified trigger documented in this encounter Additional Health Concerns Assessment Noted Time PHQ-9 Depression Total Score: 1 03/30/2018 7:10 AM CDT documented as of this encounter Care Teams Spin Table Operator Relationship Specialty Start Date End Date Lisseth Vang MD PCP - General 04/13/16 11/14/[address] [place], [place] [address] Carlota Landeros MD MD Urology 04/10/[address] [place] [address] Lisseth Vang MD PCP Family Practice 03/30/16 11/14/[address] [place] [address] Michelle Montana, MODESTA Registered Nurse Urology 05/07/17 Anh Costa APRN TELEPHONE TECHNICIAN Nurse Practitioner Nurse Practitioner 10/07 Martinez Galicia MD MD Ophthalmology 04/18/[address] [place] [id number] documented as of this encounter
--- OUTSIDE RECORDS SUMMARY | 2022-07-30 19:26 | XMS_ITS | Encounter Summary ---
:1945 Author Organization [facility] Address [address] [place] [address]. [place] [address] Care Team Providers Name Role Phone Lisseth Vang MD Primary Care Provider Carlota Landeros MD Unavailable Lisseth Vang MD Unavailable Michelle Montana RN Unavailable Anh Costa APRN PACKAGE DYER Unavailable Unavailable Martinez Galicia MD Unavailable Reason for Visit Reason Onset Date Comments Previsit 07/18/2018 Referral in EPIC Encounter Details Date Type Department Care Team Description 07/18/2018 PRE VISIT [facility] Saulo Hillman Previs it (Referral in [facility] EP[facility]) [facility] [place] [phone] [place], [place] [phone] (Wo rk) Social History Tobacco Use Types Packs/Day Years Used Date Smoking Tobacco: Never Smokeless Tobacco: Never Alcohol Use Standard Drinks/Week Comments Yes 0 (1 standard drink = 0.6 oz pure alcoho l) wine few times/wk Sex Assigned at Date Recorded Female 12/20/2018 4:10 PM CDT documented as of this encounter Miscellaneous Notes Telephone Encounter - Fanta Mcknight - 07/15/2018 7:07 AM CDT FUTURE VISIT INFORMATION FUTURE VISIT INFORMATION: ?? Date: 07.18.18 ?? Time: 12:15 PM ?? [place] [facility] [place] REFERRAL INFORMATION: ?? Referring provider: Dr. Santillan ?? Referring providers clinic: ENT ?? Reason for visit/diagnosis Seasonal allergic rhinitis RECORDS REQUESTED FROM: Clinic name Comments Records Status Imaging Status ENT Referral placed 8..18 and OV OV note from Dr. Brewer 4..18 EPIC RECORDS STATUS documented in this encounter Plan of Treatment Upcoming Encounters Date Type Specialty Care Team Description 09/10/2022 Office Visit Internal Medicine Margot Branham MD [address] [address] (Wo rk) documented as of this encounter Visit Diagnoses Not on filedocumented in this encounter Additional Health Concerns Assessment Noted Time PHQ-9 Depression Total Score: 1 03/30/2018 7:10 AM CDT documented as of this encounter Care Teams Utilities And Maintenance Supervisor Relationship Specialty Start Date End Date Lisseth Vang MD PCP - General 04/13/16 11/14/[address] [place] [address] Carlota Landeros MD MD Urology 04/10/[address] [place], [place] [address] Lisseth Vang MD PCP Family Practice 03/30/16 11/14/[address] [place], [place] [address] Michelle Montana, MODESTA Registered Nurse Urology 05/07/17 Anh Costa APRN PACKAGE DYER Nurse Practitioner Nurse Practitioner 10/07 Martinez Galicia MD MD Ophthalmology 04/18/18 [address] [place], [place] [address] documented as of this encounter
--- OUTSIDE RECORDS SUMMARY | 2022-07-30 19:26 | XMS_ITS | Encounter Summary ---
:1945 Author Organization [facility] Address [address] [facility] [place] [address] Care Team Providers Name Role Phone Lisseth Vang MD Primary Care Provider Carlota Landeros MD Unavailable Lisseth Vang MD Unavailable Michelle Montana RN Unavailable Anh Costa APRN, CNP Unavailable Unavailable Martinez Galicia MD Unavailable Reason for Visit Reason Comments Sleep Problem Referred by Dr. Costa - Closed Specialty Diagnoses / Procedures Referred By Contact Refer red To Contact Diagnoses Snoring Essential hypertension Anh Costa APRN CNP [address] [place] [address] Referral ID Status Reason Start Date Expiration Date Visits Requ ested Visits Authorized [id number] Closed 03/25/2018 03/25/2019 1 1 Encounter Details Date Type Department Care Team Description 04/22/2018 Office Visit [facility] Anh Costa APRN C ENTERPRISE SECURITY ARCHITECT Suspected sleep apnea (Primary Dx); [facility] Agus Trujillo MD [address] [place] [address] Snoring; [address] Essential hypertension; [facility] Chronic fatigue [address] [place] [address] Social History Tobacco Use Types Packs/Day Years Used Date Smoking Tobacco: Never Smokeless Tobacco: Never Alcohol Use Standard Drinks/Week Comments Yes 0 (1 standard drink = 0.6 oz pure alcoho l) wine few times/wk Sex Assigned at Date Recorded Female 12/20/2018 4:10 PM CDT documented as of this encounter Last Filed Vital Signs Vital Sign Reading Time Taken Comments Blood Pressure 114/67 04/22/2018 8:39 AM CDT Pulse 70 04/22/2018 8:39 AM CDT Temperature - - Respiratory Rate 16 04/22/2018 8:39 AM CDT Oxygen Saturation 98% 04/22/2018 8:39 AM CDT Inhaled Oxygen Concentration - - Weight 77.1 kg (170 lb) 04/22/2018 8:39 AM CDT Height 168.9 cm (5' 6.5) 04/22/2018 8:39 AM CDT Body Mass Index 27.03 04/22/2018 8:39 AM CDT documented in this encounter Patient Instructions Patient InstructionsLeeann Torres - 04/22/2018 8:30 AM CDT Your BMI is Body mass index is 27.03 kg/(m^2). Weight management is a personal decision. [...] is considered obese. More than two-thirds of [place] adults are considered overweight or obese. Being [...] employer, local community center, or [employer]. Weight management plan: Patient was referred to their PCP to discuss a diet and exercise plan. documented in this encounter Progress Notes Agus Wu MD - 04/22/2018 8:30 AM CDT Sleep Consultation: Date on this visit: 04/22/2018 Imelda Garcia is sent by Anh Costa for a sleep consultation regarding possible sleep apea. Primary Physician: Lisseth Vang Chief complaint: fatigue Presenting History: Imelda Garcia has been sent for a sleep evaluation by [facility] for cardiovascular disease prevention. Her medical history is significant for hypertension, hyperlipidemia, osteoarthritis and head tremor. Patient complains of chronic fatigue. She wakes up feeling un refreshed and feels tired during the day. She takes an nap in the afternoon almost every day for 30-60 minutes. Patient's [place] Sleepiness score 4/24 consistent with no daytime sleepiness. Imelda naps 5-6 times per week for 30-60 minutes, feels refreshed after naps. She takes no inadvertantnaps. She denies closing eyes, dozing and falling asleep while driving. Patient was counseled on theimportance of driving while alert, to seedling puller if drowsy, or nap before getting into the vehicle ifsleepy. Patient sleeps alone and we do not have collateral information regarding snoring or breathing disturbances. Patient does not have a regular bed partner. She does not have witnessed apneas. Patient sleeps on her back and side. She denies no morning dry mouth, morning headaches and restless legs. Imelda denies any bruxism, sleep walking, sleep talking, dream enactment, sleep paralysis, cataplexy and hypnogogic/hypnopompic hallucinations. She has experienced threatening dreams like animals chasing her but denies any radha dream enactmentbehavior. Imelda goes to sleep at 9:30 PM during the week. She wakes up at 7:00 AM without an alarm. She falls asleep in 15 minutes. Imelda denies difficulty falling asleep. She wakes up 2-4 times a night for 5 minutes before falling back to sleep. Imelda wakes up to go to the bathroom. On weekends, Imelda goes to sleep at 9:30 PM. She wakes up at 7:00 AM without an alarm. She falls asleep in 15 minutes. Patient gets an average of 8-9 hours of sleep per night. Patient does not use electronics in bed and watch TV in bed. Imelda does not do shift work. 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 . She denies sleep walking as a child. Imelda has difficulty breathing through her nose. She uses 1-2 cups/day of tea. Last caffeine intake is usually before noon. Allergies: Allergies Allergen Reactions ??? Codeine Nausea and Vomiting ??? Morphine Nausea and Vomiting Other reaction(s): GI intolerance, severe dry heaves ??? Oxycodone Other (See Comments) ??? Propofol Other (See Comments) and Nausea and Vomiting Other reaction(s): GI intolerance Extreme vertigo and nausea/vomiting ??? Perindopril Cough ??? Latex Rash ??? Nickel Rash ??? Tape [Adhesive Tape] Rash Including steri-strips Medications: Current Outpatient Prescriptions Medication Sig Dispense Refill ??? amoxicillin (AMOXIL) 500 MG capsule Take 2 capsules by mouth as needed 1 hour before dental procedures ??? aspirin 81 MG tablet Take 81 mg by mouth daily ??? atorvastatin (LIPITOR) 10 MG tablet Take 1 tablet (10 mg) by mouth daily 90 tablet 3 ??? azelastine (ASTELIN) 0.1 % spray [place] 2 sprays into both nostrils 2 times daily 90 mL 11 ??? B Complex Vitamins (VITAMIN-B COMPLEX PO) [...] ??? estradiol (ESTRING) [address] 1 each vaginally every 3 months MD APPT./ ANNUAL EXAM FOR ANY REFILLS 1 each 0 ??? fish oil-omega-3 fatty acids (OMEGA 3) 1000 MG capsule Take 1 capsule by mouth 2 times daily ??? fluticasone (FLONASE) 50 MCG/ACT spray [place] 2 sprays into both nostrils daily 1 Bottle 11 ??? GARLIC PO Take 1 tablet by mouth 3 times daily ??? Adin, Zingiber officinalis, (ADIN PO) Take 2 capsules by mouth 3 times daily ??? Glucosamine-Chondroitin (GLUCOSAMINE CHONDR COMPLEX PO) Take 1 tablet by mouth. With MSN ??? hydrocortisone (ANUSOL-HC) 2.5 % rectal cream Place rectally 2 times daily 30 g 3 ??? ipratropium (ATROVENT) 0.06 % spray [place] 2 sprays into both nostrils 4 times daily as needed for rhinitis 1 Box 11 ??? LYSINE PO Take 1 capsule by mouth 2 times daily ??? Magnesium 200 MG TABS Take 4 tablets by mouth daily. ??? OTHER MEDICAL SUPPLIES ROCÍO stockings knee length USE DIRECTED . ??? Probiotic Product (PROBIOTIC DAILY PO) Take 1 capsule by mouth as needed ??? TURMERIC PO Take 1 tablet by mouth 3 times daily ??? valACYclovir (VALTREX) 1000 mg tablet Take 1 tablet (1,000 mg) by mouth 3 times daily as needed 20 tablet 1 ??? valsartan (DIOVAN) 160 MG tablet Take 1 tablet (160 mg) by mouth daily 90 tablet 3 Problem List: Patient Active Problem List Diagnosis [...] without diagnosis of hypertension 09/23/2009 Priority: Medium Past Medical/Surgical History: Past Medical History: Diagnosis Date ??? Benign head tremor many years ??? Deviated nasal septum Dr Baer ENT ??? Elevated brain natriuretic peptide (BNP) level 2008 296 ??? Elevated glucose 06/23/2016 [facility] ??? Fibroid uterus ??? H/O: varicose veins ??? Hyperlipidemia ASCVD risk 8.1%, declines statin ??? Hypertension ??? Osteoarthritis bilateral hip and knees ??? Osteopenia ??? 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 [...] LANDEROS;Location:[facility] OR ??? MAMMOPLASTY REDUCTION 1989 ??? REPLACE GENERATOR STIMULATOR (LOCATION) Left 04/27/2017 Procedure: REPLACE GENERATOR STIMULATOR (LOCATION); Replacement of Left Interstim Battery Latex Allergy; Surgeon: Carlota Landeros MD; Location: [facility] ??? SURGICAL HISTORY OF - ? Nasal passages microwaved. Dr Baer ENT Social History: Social History Social History ??? Marital status: Single Spouse name: N/A ??? Number of children: N/A ??? Years of education: N/A Occupational History ??? 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 [...] 1 son - - still working at [employer] - tamazight as a second language - lives in [...] Yes March 29, 2018 Addison Martinez LPN Family History: Family History Problem Relation Age of Onset ??? Cancer - colorectal Mother colon polyps, age 93 ??? Cardiovascular Father CHF age 79, hx of PE and HTN ??? Hypertension Father ??? Other - See Comments Brother MVA ??? No Known Problems Sister ??? No Known Problems Sister ??? Parkinsonism Sister Hx TBI, MVA ??? Cancer Sister uterine cancer ??? Cancer Maternal Grandmother 84 of pancreatic cancer ??? Myocardial Infarction Maternal Grandfather 82 of HI ??? Cardiovascular Paternal Grandmother age 65 of heart problems ??? Pneumonia Paternal Grandfather age 70 after flu ??? No Known Problems Son Review of Systems: A complete review of systems reviewed by me is negative with the exeption of what has been mentionedin the history of present illness. CONSTITUTIONAL: NEGATIVE for weight gain/loss, fever, chills, sweats or night sweats, drug allergies. EYES: NEGATIVE for changes in vision, blind spots, double vision. ENT: POSITIVE for post-nasal drip CARDIAC: NEGATIVE for fast heartbeats or fluttering in chest, chest pain or pressure, breathlessnesswhen lying flat, swollen legs or swollen feet. NEUROLOGIC: NEGATIVE headaches, weakness or numbness in the arms or legs. DERMATOLOGIC: NEGATIVE for rashes, new moles or change in mole(s) PULMONARY: NEGATIVE SOB at rest, SOB with activity, dry cough, productive cough, coughing up blood, wheezing or whistling when breathing. GASTROINTESTINAL: NEGATIVE for nausea or vomitting, loose or watery stools, fat or grease in stools,constipation, abdominal pain, bowel movements black in color or blood noted. GENITOURINARY: NEGATIVE for pain during urination, blood in urine, urinating more frequently than usual, irregular menstrual periods. MUSCULOSKELETAL: NEGATIVE for muscle pain, bone or joint pain, swollen joints. ENDOCRINE: NEGATIVE for increased thirst or urination, diabetes. LYMPHATIC: NEGATIVE for swollen lymph nodes, lumps or bumps in the breasts or nipple discharge. Physical Examination: Vitals: BP 114/67 Pulse 70 Resp 16 Ht 1.689 m (5' 6.5) Wt 77.1 kg (170 lb) SpO2 98% BMI27.03 kg/m2 BMI= Body mass index is 27.03 kg/(m^2). Neck Cir (cm): 36 cm [place] Total Score 04/22/2018 Total score - [place] 4 VANESSA Total Score: 11 (04/22/18 0834) GENERAL APPEARANCE: healthy, alert and no distress EYES: Eyes grossly normal to inspection, PERRL and conjunctivae and sclerae normal HENT: nose and mouth without ulcers or lesions and oropharynx crowded NECK: no adenopathy, no asymmetry, masses, or scars and thyroid normal to palpation RESP: lungs clear to auscultation - no rales, rhonchi or wheezes CV: regular rates and rhythm, normal S1 S2, no S3 or S4 and no murmur, click or rub ABDOMEN: soft, nontender, without hepatosplenomegaly or masses MS: extremities normal- no gross deformities noted NEURO: Normal strength and tone, mentation intact and speech normal PSYCH: mentation appears normal and affect normal/bright Mallampati Class: IV. Tonsillar Stage: 1 hidden by pillars. Impression/Plan: 1. To rule out obstructive sleep apnea 2. Hypertension - Patient is a 72 years old female, with BMI 27 and neck circumference 36 cm, who is sent for a sleep apnea evaluation by cardiology. Patient complains of non restorative sleep and daytime fatigue. Shedoesnot have a bedpartner and history of snoring or sleep disordered breathing symptoms are unknown.Oropharynx is crowded one examination and patient has chronic nasal obstruction. There is an intermediate risk for sleep apnea and an overnight sleep study is recommended for evlauation. Plan: 1. Split night PSG for assessment of sleep apnea She will follow up with me in approximately two weeks after her sleep study has been competed to review the results and discuss plan of care. Polysomnography reviewed. Obstructive sleep apnea reviewed. Complications of untreated sleep apnea were reviewed. I spent a total of 45 minutes with patient with more than 50% in counseling Agus Wu CC: Anh Costa documented in this encounter Nursing Notes Leeann Torres - 04/22/2018 8:30 AM CDT Chief Complaint Patient presents with ??? Sleep Problem Referred by Dr. Costa Initial BP 114/67 Pulse 70 Resp 16 Ht 1.689 m (5' 6.5) Wt 77.1 kg (170 lb) SpO2 98% BMI27.03 kg/m2 Estimated body mass index is 27.03 kg/(m^2) as calculated from the following: Height as of this encounter: 1.689 m (5' 6.5). Weight as of this encounter: 77.1 kg (170 lb). Medication Reconciliation: complete Neck circumference: 14 inches / 36 centimeters. ESS 4 Leeann Torres MA documented in this encounter Plan of Treatment Upcoming Encounters Date Type Specialty Care Team Description 09/10/2022 Office Visit Internal Medicine LogeaMargot man MD [address] [place] [id number] (Wo rk) documented as of this encounter Results Comprehensive Sleep Study (06/19/2018 8:36 PM CDT) Analysis Performed At Patho logist Time Signature SUPERVISOR PHOSPHATIC FERTILIZER Comprehensive BREEZE PFT Sleep Specimen (Source) Anatomical [...] 6 and weighs 170.0 lbs. Her B HI is 27.3, [place] sleepiness scale 4.0 and neck circumfere nce [...] apparent. Cardiac Summary: Sinus rhythm with isola rocío PVCs. The average pulse rate was 62.8 [...] Diagnostic Codes: Unspecified Sleep Disturbance G47.9 06/19/2018 [facility] Sleep Stud y (170.0 lbs) - [...] Wu Rakesh Indications for Polysomnography: The laureen ietemitope is a 72 y old Female who is 5' 6 and weighs 170.0 lbs. Her BMI is 27.3, [place] sleepiness scale 4.0 and neck circumference is [...] apparent. Cardiac Summary: Sinus rhythm with isola rocío PVCs. The average pulse rate was 62.8 [...] Diagnostic Codes: Unspecified Sleep Disturbance G47.9 06/19/2018 [facility] (170.0 lbs) - [...] documented in this encounter Visit Diagnoses Diagnosis Suspected sleep apnea - Primary Snoring Other dyspnea and respiratory abnormalit y Essential hypertension Unspecified essential hypertension Chronic fatigue Other malaise and fatigue Essential hypertension Unspecified essential hypertension Suspected sleep apnea Chronic fatigue Other malaise and fatigue documented in this encounter Additional Health Concerns Assessment Noted Time PHQ-9 Depression Total Score: 1 03/30/2018 7:10 AM CDT documented as of this encounter Care Teams Driftman Relationship Specialty Start Date End Date Lisseth Vang MD PCP - General 04/13/16 11/14/[address] [place], [place] [address] Carlota Landeros MD MD Urology 04/10/[address] [place], [place] [address] Lisseth Vang MD PCP Family Practice 03/30/16 11/14/[address] [place], [place] [phone] Michelle Montana, MODESTA Registered Nurse Urology 05/07/17 Anh Costa APRN WORKERS' COMPENSATION MEDIATOR Nurse Practitioner Nurse Practitioner 10/07 Martinez Galicia MD MD Ophthalmology 04/18/18 [address] [place] [address] documented as of this encounter
--- OUTSIDE RECORDS SUMMARY | 2022-07-30 19:26 | XMS_ITS | Encounter Summary ---
:1945 Author Organization [facility] Address [address] [place] [address]. [place] [address] Care Team Providers Name Role Phone Lisseth Vang MD Primary Care Provider Carlota Landeros MD Unavailable Lisseth Vang MD Unavailable Michelle Montana RN Unavailable Anh Costa APRN PHARM SPEC Unavailable Unavailable Martinez Galicia MD Unavailable Reason for Visit Reason Comments Medication Refill estradiol (ESTRING) 2 MG vag inal ring Encounter Details Date Type Department Care Team Description 05/16/2018 Refill [facility] Urology and Dee Landeros MD Medication Refill Inst for Prostate and [address] (estradiol (ESTRING) 2 Urologic Cancers 100 MG vaginal ring ) [address] [place], [place] [phone] [place] [address] [place] [address] Social History Tobacco Use Types Packs/Day Years Used Date Smoking Tobacco: Never Smokeless Tobacco: Never Alcohol Use Standard Drinks/Week Comments Yes 0 (1 standard drink = 0.6 oz pure alcoho l) wine few times/wk Sex Assigned at Date Recorded Female 12/20/2018 4:10 PM CDT documented as of this encounter Miscellaneous Notes Telephone Encounter - Sydnie Granger RN - 05/17/2018 4:11 PM CDT estradiol (ESTRING) 2 MG vaginal ring Last Written Prescription Date: 01/11/18 Last Fill Quantity: 1 EACH, # refills: 0 Last Office Visit : 08/11/17 Future Office visit: NONE Routing refill request to provider for review/approval because: Drug not on the refill protocol documented in this encounter Plan of Treatment Upcoming Encounters Date Type Specialty Care Team Description 09/10/2022 Office Visit Internal Medicine Margot Branham MD [address] [id number] (Wo rk) documented as of this encounter Visit Diagnoses Diagnosis Vaginal dryness Other specified symptom associated with female genital organs Screen for colon cancer Special screening for malignant neoplasm s, colon Atrophic vaginitis Postmenopausal atrophic vaginitis documented in this encounter Additional Health Concerns Assessment Noted Time PHQ-9 Depression Total Score: 1 03/30/2018 7:10 AM CDT documented as of this encounter Care Teams Bilingual Branch Manager Relationship Specialty Start Date End Date Lisseth Vang MD PCP - General 04/13/16 11/14/[address] [place], [place] [phone] Carlota Landeros MD MD Urology 04/10/[address] [place], [place] [address] Lisseth Vang MD PCP Family Practice 03/30/16 11/14/[address] [place], [place] [phone] Michelle Montana, MODESTA Registered Nurse Urology 05/07/17 Anh Costa APRN PHARM SPEC Nurse Practitioner Nurse Practitioner 10/07 Martinez Galicia MD MD Ophthalmology 04/18/[address] [place] [address] documented as of this encounter
--- OUTSIDE RECORDS SUMMARY | 2022-07-30 19:26 | XMS_ITS | Encounter Summary ---
:1945 Author Organization [facility] Address [address] [place] [address] Care Team Providers Name Role Phone Lisseth Vang MD Primary Care Provider Carlota Landeros MD Unavailable Lisseth Vang MD Unavailable Michelle Montana RN Unavailable Anh Costa APRN PLODDING MACHINE OPERATOR Unavailable Unavailable Martinez Galicia MD Unavailable Encounter Details Date Type Department Care Team Description 07/22/2018 Orders Only [facility] Lab Hyperlipidemia LDL goal <[address] [place] [phone] Social History Tobacco Use Types Packs/Day [...] Visit Internal Medicine LogMargot sadler MD [address] [address] (Wo rk) documented as of this encounter Procedures Procedure Name Priority Date/Time Associated Diagnosis Comme nts LIPID REFLEX TO Routine 07/22/2018 9:22 AM Hyperlipidemia LDL goal Results for this DIRECT LDL PANEL CDT <100 procedure a re in the results section. documented in this encounter Results Lipid panel reflex to direct LDL Fasting (07/22/2018 9:22 AM CDT) [facility] Method Time Signature Cholesterol 127 <200 mg/dL 07/22/2018 [facility] 9:48 AM CDT [facility] Triglycerides 84 <150 mg/dL 07/22/2018 [facility] 9:48 AM CDT [facility] HDL Cholesterol 62 >49 mg/dL 07/22/2018 [facility] 9:48 AM CDT [facility] LDL Cholesterol 48 <100 mg/dL 07/22/2018 [facility] O F Calculated 9:48 AM CDT [facility] Comment: Desirable: <100 mg/dl Non HDL Cholesterol 65 <130 mg/dL 07/22/2018 9:48 AM CDT [facility] Specimen Anatomical Collection Method Collection Time Receive d Time (Source) Location / / Volume Laterality Blood specimen 07/22/2018 9:22 AM 018 9:23 (specimen) CDT AM CDT Anh Costa APRN PLODDING MACHINE OPERATOR LAB - BLOOD ORDERABLES Performing Organization Address City/State/ZIP Code Phon e Number [address] [id number] [facility] documented in this encounter Visit Diagnoses Diagnosis Hyperlipidemia LDL goal <100 Other and unspecified hyperlipidemia documented in this encounter Additional Health Concerns Assessment Noted Time PHQ-9 Depression Total Score: 1 03/30/2018 7:10 AM CDT documented as of this encounter Care Teams Channel Sales Manager Relationship Specialty Start Date End Date Lisseth Vang MD PCP - General 04/13/16 11/14/[address] [place] [address] Carlota Landeros MD MD Urology 04/10/[address] [place], [place] [address] Lisseth Vang MD PCP Family Practice 03/30/16 11/14/[address] [place], [place] [phone] Michelle Montana, RN Registered Nurse Urology 05/07/17 Anh Costa APRN PLODDING MACHINE OPERATOR Nurse Practitioner Nurse Practitioner 10/07 Martinez Galicia MD MD Ophthalmology 04/18/[address] [place] [phone] documented as of this encounter
--- OUTSIDE RECORDS SUMMARY | 2022-07-30 19:26 | XMS_ITS | Encounter Summary ---
:1945 Author Organization [facility] Address [address] [place] [address]. [place] [address] Care Team Providers Name Role Phone Lisseth Vang MD Primary Care Provider Carlota Landeros MD Unavailable Lisseth Vang MD Unavailable Michelle Montana RN Unavailable Anh Costa APRN SALES AND SERVICE CONSULTANT Unavailable Unavailable Martinez Galicia MD Unavailable Encounter Details Date Type Department Care Team Description 07/18/[address] [facility] Surgery and Martinez Galicia Right Eye Procedure Center MD Lili Phacoemulsification with 9 [facility] [address] [facility] Intraocular Lens 5th [place] [phone] Surgery Details Date/Time Status Location OR Service Patient Class Case Case Trauma Class Type Case? 07/18/18 8:00 Posted UC OR OR 02 Ophthalmology Outpatient AM Panel 1 Procedure LRB Anes Op Region Wound Comment s Class Right Eye Right MAC with Eye I-Clean Right Eye Phacoemulsification with Topical Phacoemulsification Intraocular Lens with Int raocular Lens Surgeon Surgeon Role Service Panel Martinez [...] Time Taken Comments Blood Pressure 112/67 07/18/2018 9:00 AM CDT Pulse - - Temperature 36.5 ??C (97.7 ??F) 07/18/2018 8:50 AM CDT Respiratory Rate 16 07/18/2018 9:00 AM CDT Oxygen Saturation 96% 07/18/2018 9:00 AM CDT Inhaled Oxygen Concentration - - Weight - - Height - - Body Mass Index - - documented in this encounter Discharge Instructions Discharge Wilder Ochoa RN - 07/18/2018 8:56 AM CDT [facility] Home [...] appointment with your doctor tomorrow at the [facility] ([phone]). Bring all your prescribed eye drops with you to this follow-up appointment. ??? If you take glaucoma medications, bring them with you to your follow-up appointment tomorrow. ??? Use medication exactly as prescribed by your doctor. You may restart your regular home medications. ??? Call your doctor???s office at [phone] if any of the following should occur: - Any sudden vision changes, including decreased vision - Nausea or severe headache - Increase in pain that is not controlled with Acetaminophen (Tylenol) or Ibuprofen (Advil) - Signs of infection (pus, increasing redness or tenderness) - Severe sensitivity to light An increase in floaters (black spots in front of your vision)[facility] Scopolamine Patch- (Absorbed through the skin) This medicine prevents nausea and vomiting caused by motion sickness or anesthesia. The medicine is in a patch worn behind the ear. Do NOT use the Scopolamine Patch if you have glaucoma or are allergic to scopolamine. How to Use This Medicine: ?? The patch is applied behind the ear. ?? Keep the patch dry to prevent it from falling off. Limit contact with water (no bathing or swimming). ?? If the patch is loose or falls off throw it away. You do not need to apply a new patch. ?? After you take off the patch or if it falls off, wash your hands and the area behind your ear with soap and water. ?? You can remove the patch tomorrow, or leave on for up to 3 days. ?? Only one patch should be used at any time. How to Dispose of This Medicine: ?? Fold the used patch in half with the sticky sides together. Throw any used patch away so that children or pets cannot get to it. You will also need to throw away old patches after the expiration date has passed. ?? Keep all medicine away from children and never share your medicine with anyone. Warnings While Using This Medicine: ?? This medicine can make you sleepy. Avoid taking sleeping pills and other medicines that can make you sleepy while the patch is on. ?? Do not drink alcohol while the patch is on. ?? This medicine can cause temporary blurring and other vision problems if it comes in contact with the eyes. This is not serious unless accompanied by eye pain and redness. ?? This medicine may cause problems with urination. If you have problems with urinating, remove the patch. If you are unable to urinate, call your doctor. ?? This medicine may make you dizzy or drowsy. Avoid driving, using machines, or doing anything elsethat could be dangerous if the patch is on. ?? This medicine may make you sweat less and cause your body to get too hot. Be careful in hot weather or if you are exercising. ?? Make sure any doctor or dentist who treats you knows that you have the patch on. This medicine may affect the results of certain medical tests. ?? Skin currie have been reported at the patch site in several patients wearing an aluminized transdermal system during a magnetic resonance imaging scan (MRI). Since this patch contains aluminum, it isrecommended to remove the patch if you are having an MRI. Possible Side Effects While Using This Medicine: ?? Dry mouth ?? Drowsiness ?? Temporary blurring of vision and widening of the pupils Call your doctor right away if you notice any of these side effects: ?? Allergic reaction: Itching or hives, swelling in your face or hands, swelling or tingling in yourmouth or throat, chest tightness, trouble breathing. ?? Blurred vision that does not go away after the patch is removed ?? Confusion or memory loss ?? Fast,slow, or uneven heartbeat ?? Lightheadedness, dizziness, drowsiness, or fainting ?? Seeing, hearing, or feeling things that are not there ?? Restlessness ?? Severe eye pain ?? Trouble urinating If you notice other side effects that you think are caused by this medicine, call your doctor immediately. Home Care Following Anesthesia For 24 hours after surgery: Get plenty of rest. A responsible adult must stay with you for at least 24 hours after you leave [facility]. Do not drive or use heavy equipment. If you have weakness or tingling, don't drive or use heavy equipment until this feeling goes away. Do not drink alcohol. Avoid strenuous or risky activities. Ask for help when climbing stairs. You may feel lightheaded. IF so, sit for a few minutes before standing. Have someone help you get up. If you have nausea (feel sick to your stomach): Drink only clear liquids such as apple juice, gingerale, broth or 7-Up. Rest may also help. Be sure to drink enough fluids. Move to a regular diet as you feel able. You may have a slight fever. Call the doctor if your fever is over 100??F (37.7??C) (taken under thetongue) or lasts longer than 24 hours. You may have a dry mouth, a sore throat, muscle aches or trouble sleeping. These should go away after 24 hours. Do not make important or legal decisions. Today you received a Marcaine or bupivacaine block to numb the nerves near your surgery site. This is a block using local anesthetic or numbing medication injected around the nerves to anesthetize ornumb the area supplied by those nerves. This block is injected into the muscle layer near your surgical site. The medication may numb the location where you had surgery for 6-18 hours, but may last up to 24 hours. If your surgical site is an arm or leg you should be careful with your affected limb, since it is possible to injure your limb without being aware of it due to the numbing. Until full feeling returns, you should guard against bumping or hitting your limb, and avoid extreme hot or cold temperatures on the skin. As the block wears off, the feeling will return as a tingling or prickly sensation near your surgical site. You will experience more discomfort from your incision as the feeling returns. You may want to take a pain pill (a narcotic or Tylenol if this was prescribed by your surgeon) when you start to experience mild pain before the pain beccomes more severe. If your pain medications do not control your pain you should notifiy your surgeon. Tips for taking pain medications To get the best pain relief possible, remember these points: Take pain medications as directed, before pain becomes severe. Pain medication can upset your stomach: taking it with food may help. Constipation is a common side effect of pain medication. Drink plenty of fluids. Eat foods high in fiber. Take a stool softener if recommended by your doctor or pharmacist. Do not drink alcohol, drive or operate machinery while taking pain medications. Ask about other ways to control pain, [...] hours to 2 pills every 6 hours. If you feel your pain relief is insufficient, you may take Tylenol/Acetaminophen in addition to yournarcotic pain medication. Be careful not to exceed 3,000 mg of Tylenol/Acetaminophen in a 24 hour period from all sources. If you are taking extra strength Tylenol/acetaminophen (500 mg), the maximum dose is 6 tablets in 24hours. If you are taking regular strength acetaminophen (325 mg), the maximum dose is 9 tablets in 24 hours. Call a doctor for any of the following: Signs of infection (fever, growing tenderness at the surgery site, a large amount of drainage or bleeding, severe pain, foul-smelling drainage, redness, swelling). It has been over 8 to 10 hours since surgery and you are still not able to urinate (pass water). Headache for over 24 hours. Numbness, tingling or weakness the day after surgery (if you had spinal anesthesia). Your doctor is: Dr. Martinez Galicia, Ophthalmology: [phone] Or dial [phone] and ask for the resident environmental solutions engineer for: Ophthalmology For emergency care, call the: [facility]: [phone] (TTY for hearing impaired: [phone]) - documented in this encounter Medications at Time [...] Hyperlipidemia, unspecified hyperlipidemia type azelastine (ASTELIN) 0.1 [place] 2 sprays into 90 mL 11 08/12/2018 [...] 2 times daily capsule fluticasone (FLONASE) 50 [place] 2 sprays into 1 Bottle 08/12/2018 MCG/ACT sprayIndications: both nostrils daily Chronic rhinitis, unspecified type GARLIC PO Take 1 tablet by 0 04/10/20 19 mouth 3 times daily Adin, Zingiber Take 1 capsule by 0 0 04/10/2019 officinalis, (ADIN PO) mouth daily Glucosamine-Chondroitin Take 1 tablet by 0 04/10/2019 (GLUCOSAMINE CHONDR mouth. With MSN COMPLEX PO) hydrocortisone Place rectally 2 30 g 3 08/18/201611/04 (ANUSOL-HC) 2.5 % rectal times daily creamIndications: External hemorrhoids ipratropium (ATROVENT) [place] 2 sprays into 1 Box 11/201710/10/2018 0.06 [...] drop to eye 5 mL 0 1 07/25/2018 ophthalmic 3 times daily solutionIndications: Instill into Nuclear sclerotic operative eye(s) cataract of both eyes per physician instructions. prednisoLONE acetate Apply 1 drop to eye 5 mL 0 201707/25/2018 (PRED FORTE) 1 % 4 times daily [...] Op Note - Martinez Galicia MD - 07/18/2018 8:49 AM CDT PREOPERATIVE DIAGNOSIS: Visually significant cataract, Right eye POSTOPERATIVE DIAGNOSIS: Same PROCEDURES: 1. Cataract extraction with intraocular lens implant Right eye. SURGEON: Martinez Galicia M.D. Clinical Biostatistics Director: Ermias Russell MD INDICATIONS: The patient Yamileth Sheikh presented to the eye clinic with decreased vision secondary to cataract in the Right eye. The risks, benefits and alternatives to [...] correct surgical site. With adequate anesthesia, the Right eye was prepped and draped in the usual sterile fashion. A lid speculum was placed, and the operating microscope was rotated into position. A paracentesis was created. Through this limbal paracentesis, the anterior chamber was filled with preservative-free lidocaine followed by viscoelastic. A temporal wound was created at the limbus [...] its maximal extent with cohesive viscoelastic. A 20.0 diopter [id number] inserted into the capsular bag. The lens power selected was reviewed using the intraocular lens power measurements that were obtained preoperatively to confirmthat the correct lens was selected for the [...] Implant Name Type Inv. Item Serial No. Thread Drawer Lot No. LRB No. Used EYE IMP IOL CHALO PCL TECNIS [id number] 20.0 Lens/Eye Implant EYE IMP IOL CHALO PCL TECNIS ZCB00 20.0 [id number] [employer] Right 1 Attending Physician Procedure Attestation: I was present for the entire procedure Martinez Galicia MD Kettle Operator, Comprehensive Ophthalmology Department of Ophthalmology and Visual Neurosciences [facility] documented in this encounter Plan of Treatment Upcoming Encounters Date Type Specialty Care Team Description 09/10/2022 Office Visit Internal Medicine Margot Branham MD [address] [address] (Wo rk) documented as of this encounter Procedures Procedure Name Priority Date/Time Associated Diagnosis Comme nts PHACOEMULSIFICATION, 07/18/2018 8:22 AM CDT Cataracts CATARACT, WITH STANDARD INTRAOCULAR LENS IMPLANT INSERTION Special Needs Latex Allergy documented in this encounter Visit Diagnoses Not on filedocumented in this encounter Administered Medications Inactive Administered Medications - up to 3 most recent administrations Medication Order MAR Action Action Date Dose Rate Site acetaminophen (TYLENOL) tablet 975 Given 07/18/2018 8:04 AM CDT 975 mg mg 975 mg, Oral, ONCE, On Wed07/18/18 at 0745, For 1 dose, Maximum acetaminophen dose from all sources = 75 mg/kg/day not to exceed 4 grams/day., Pre-procedure BSS 500 with EPINEPHrine 1:1000 (PF) Given 07/18/2018 8:33 AM CD T 500 mLs Eye Right 0.3mL PRN, Starting on Wed07/18/18 at 0833, Intra-procedure BSS ophthalmic solution Given 07/18/2018 8:33 AM CDT 15 mLs Eye R ight PRN, Starting on Wed07/18/18 at 0833, Intra-procedure cyclopentolate (CYCLOGYL) 1 % ophthalmic Given 07/18/2018 8:15 A M CDT 1 drop solution 1 drop 1 drop, Ophthalmic, EVERY 5 MIN PRIOR TO SURGERY, Starting on Wed07/18/18 at 0743, For 3 doses, Instill into operative eye(s), starting upon admission., Pre-procedure Given 07/18/2018 8:08 AM CDT 1 drop Given 07/18/2018 8:02 AM CDT 1 drop lactated ringers infusion New Bag 07/18/2018 8:03 AM CDT 25 mL/hr at 25 mL/hr, Intravenous, CONTINUOUS, IF patient NOT on dialysis., Pre-procedure, Starting on Wed07/18/18 at 0800, Until Wed07/18/18 at 0852 lidocaine (PF) (XYLOCAINE) 1 % Given 07/18/2018 8:34 AM CDT 1 mL Eye Right injection PRN, Starting on Wed07/18/18 at 0834, Intra-procedure dyfezlbq-nthcdgycd-oxfpvuhsppafz (MAXITROL) Given 07/18/2018 8:3 4 AM 1 g Eye Right 0.1 % ophthalmic ointment OINT CDT PRN, Starting on Wed07/18/18 at 0834, Intra-procedure phenylephrine (MYDFRIN /ALESSIO-SYNEPHRINE) 2.5 % Given 8:15 AM CDT 1 drop ophthalmic solution 1 drop 1 drop, Ophthalmic, EVERY 5 MIN PRIOR TO SURGERY, Starting on Wed07/18/18 at 0743, For 3 doses, Instill into operative eye(s), starting upon admission., Pre-procedure Given 07/18/2018 8:07 AM CDT 1 drop Given 07/18/2018 8:02 AM CDT 1 drop proparacaine (ALCAINE) 0.5 % ophthalmic Given 07/18/2018 8:02 AM CDT 1 drop solution 1 drop 1 drop, Ophthalmic, ONCE, On Wed07/18/18 at 0745, For 1 dose, Into operative eye(s) before dilating drops instilled., Pre-procedure scopolamine (TRANSDERM) 72 hr Given 07/18/2018 8:13 AM CDT 1 pat ch Behind Left Ear patch 1 patch 1 patch, Transdermal, EVERY 72 HOURS, First dose on Wed07/18/18 at 0815, Apply patch to skin, behind ear. Remove every 72 hours. Each 1.5 mg patch delivers 1 mg of scopolamine., Pre-procedure sodium hyaluronate (HEALON Given 07/18/2018 8:34 AM CDT 1 applic ator Eye Right DUET) PRN, Starting on Wed07/18/18 at 0834, Intra-procedure tetracaine (PONTOCAINE) 0.5 % Given 07/18/2018 8:28 AM CDT 2 carmina ps Eye Right ophthalmic solution PRN, Starting on Wed07/18/18 at 0828, Intra-procedure timolol (TIMOPTIC) 0.5 % ophthalmic Given 07/18/2018 8:45 AM CDT 1 drop Eye Right solution PRN, Starting on Wed07/18/18 at 0845, Intra-procedure tropicamide (MYDRIACYL) 1 % ophthalmic Given 07/18/2018 8:15 AM CDT 1 drop solution 1 drop 1 drop, Ophthalmic, EVERY 5 MIN PRIOR TO SURGERY, Starting on Wed07/18/18 at 0743, For 3 doses, Instill into operative eye(s), Pre-procedure Given 07/18/2018 8:07 AM CDT 1 drop Given 07/18/2018 8:02 AM CDT 1 drop documented in this encounter Additional Health Concerns Assessment Noted Time PHQ-9 Depression Total Score: 1 03/30/2018 7:10 AM CDT documented as of this encounter Care Teams Firebrick And Refractory Tile Repairer Relationship Specialty Start Date End Date Lisseth Vang MD PCP - General 04/13/16 11/14/[address] [place], [place] [id number] Carlota Landeros MD MD Urology 04/10/[address] [place], [place] [address] Lisseth Vang MD PCP Family Practice 03/30/16 11/14/[address] [place], [place] [phone] Michelle Montana RN Registered Nurse Urology 05/07/17 Anh Costa APRN SALES AND SERVICE CONSULTANT Nurse Practitioner Nurse Practitioner 10/07 Martinez Galicia MD MD Ophthalmology 04/18/18 [address] [place], [place] [phone] documented as of this encounter
--- OUTSIDE RECORDS SUMMARY | 2022-07-30 19:26 | XMS_ITS | Encounter Summary ---
:1945 Author Organization [facility] Address [address] [place] [address]. [place] [address] Care Team Providers Name Role Phone Lisseth Vang MD Primary Care Provider Carlota Landeros MD Unavailable Lisseth Vang MD Unavailable Michelle Montana RN Unavailable Anh Costa APRN PREDICTIVE MAINTENANCE TECHNICIAN Unavailable Unavailable Martinez Galicia MD Unavailable Reason for Visit Reason Comments Post Op (Ophthalmology) Right Eye Right Eye Phacoemuls ification with Intraocular Lens 07/18/18 Encounter Details Date Type Department Care Team Description 07/18/2018 Office Visit [facility] Martinez Galicia Pseudophakia - Right Eye (Primary Dx); Ophthalmology MD Lili Pseudophakia [address] [place], [place] [phone] Social History Tobacco Use Types Packs/Day Years Used Date Smoking Tobacco: Never Smokeless Tobacco: Never Alcohol Use Standard Drinks/Week Comments Yes 0 (1 standard drink = 0.6 oz pure alcoho l) wine few times/wk Sex Assigned at Date Recorded Female 12/20/2018 4:10 PM CDT documented as of this encounter Progress Notes Martinez Galicia MD - 07/18/2018 2:02 PM CDT Assessment & Plan Yamileth Sheikh is a 72 year old female with the following diagnoses: 1. Pseudophakia - Right Eye 2. Pseudophakia Postoperative day 0 Doing well Keep patch in place at night for 5 days Start post-operative drops and taper according to instructions Post-operative do's and don'ts reviewed, questions answered Recheck 2-3 weeks with refraction Attending Physician Attestation: I have seen and examined this patient. I have confirmed and edited as necessary the chief complaint(s), history of present illness, review of systems, relevant history,and examination findings as documented by others. I have personally reviewed the relevant tests, images, and reports as documented above. I have confirmed and edited as necessary the assessment and plan and agree with this note. - Martinez Galicia MD 2:02 PM 07/18/2018 documented in this encounter Nursing Notes Colleen Licea CO - 07/18/2018 11:45 AM CDT Chief Complaints and History of Present Illnesses Patient presents with ??? Post Op (Ophthalmology) Right Eye Right Eye Phacoemulsification with Intraocular Lens 07/18/18 HPI Affected eye(s): Right Symptoms: Blurred vision Do you have eye pain now?: No Comments: Same day post op of Right Eye Phacoemulsification with Intraocular Lens 07/18/18. No pain or discomfort right eye. ADAN Taylor 07/18/2018 1:54 PM documented in this encounter Plan of Treatment Upcoming Encounters Date Type Specialty Care Team Description 09/10/2022 Office Visit Internal Medicine Margot Branham MD [address] [place] [phone] (Wo rk) documented as of this encounter Visit Diagnoses Diagnosis Pseudophakia - Right Eye - Primary Lens replaced by other means documented in this encounter Additional Health Concerns Assessment Noted Time PHQ-9 Depression Total Score: 1 03/30/2018 7:10 AM CDT documented as of this encounter Care Teams Plumbing And Heating Contractor Relationship Specialty Start Date End Date Lisseth Vang MD PCP - General 04/13/16 11/14/[address] [place] [address] Carlota Landeros MD MD Urology 04/10/[address] [place], [place] [phone] Lisseth Vang MD PCP Family Practice 03/30/16 11/14/[address] [place] [address] Michelle Montana, MODESTA Registered Nurse Urology 05/07/17 Anh Costa APRN PREDICTIVE MAINTENANCE TECHNICIAN Nurse Practitioner Nurse Practitioner 10/07 Martinez Galicia MD MD Ophthalmology 04/18/[address] [place] [phone] documented as of this encounter
--- OUTSIDE RECORDS SUMMARY | 2022-07-30 19:26 | XMS_ITS | Encounter Summary ---
:1945 Author Organization [facility] Address [address] [place] [address]. [place] [address] Care Team Providers Name Role Phone Lisseth Vang MD Primary Care Provider Carlota Landeros MD Unavailable Lisseth Vang MD Unavailable Michelle Montana RN Unavailable Anh Costa APRN, CNP Unavailable Unavailable Martinez Galicia MD Unavailable Encounter Details Date Type Department Care Team Description 04/22/2018 Orders Only [facility] for Anh Costa hypertension Cardiovascular Disease CLAUDIA Marsh CNP (Pr imary Dx) Prevention [address] [place] [phone] Social History Tobacco Use Types Packs/Day Years Used Date Smoking Tobacco: Never Smokeless Tobacco: Never Alcohol Use Standard Drinks/Week Comments Yes 0 (1 standard drink = 0.6 oz pure alcoho l) wine few times/wk Sex Assigned at Date Recorded Female 12/20/2018 4:10 PM CDT documented as of this encounter Progress Notes Anh Costa APRN CNP - 04/22/2018 11:19 AM CDT Valsartan on recall list will change to irbesartan 150 mg per day. documented in this encounter Plan of Treatment Upcoming Encounters Date Type Specialty Care Team Description 09/10/2022 Office Visit Internal Medicine Margot Branham MD [address] [facility] [address] [place], [place] [phone] (Wo rk) documented as of this encounter Visit Diagnoses Diagnosis Essential hypertension - Primary Unspecified essential hypertension documented in this encounter Additional Health Concerns Assessment Noted Time PHQ-9 Depression Total Score: 1 03/30/2018 7:10 AM CDT documented as of this encounter Care Teams Recyclable Materials Distributor Relationship Specialty Start Date End Date Lisseth Vang MD PCP - General 04/13/16 11/14/[address] [place], [place] [phone] Carlota Landeros MD MD Urology 04/10/[address] [place], [place] [address] Lisseth Vang MD PCP Family Practice 03/30/16 11/14/[address] [place], [place] [address] Michelle Montana, RN Registered Nurse Urology 05/07/17 Anh Costa APRN COUNTER HELP Nurse Practitioner Nurse Practitioner 10/07 Martinez Galicia MD MD Ophthalmology 04/18/[address] [place] [phone] documented as of this encounter
--- OUTSIDE RECORDS SUMMARY | 2022-07-30 19:26 | XMS_ITS | Encounter Summary ---
:1945 Author Organization [place] [place] Address [address] [place] [address] Care Team Providers Name Role Phone Lisseth Vang MD Primary Care Provider Carlota Acuña MD Unavailable Lisseth Vang MD Unavailable Michelle Montana RN Unavailable Anh Costa APRN ARCH CUSHION PRESS OPERATOR Unavailable Unavailable Martinez Galicia MD Unavailable Reason for Visit Reason Comments Pre-Op Exam Encounter Details Date Type Department Care Team Description 07/07/2018 Office Visit [facility] Maxime Vang dr; [facility] MD Lisseth Screen for colon cancer; [place] [address] Atrophic vaginitis; [facility] [address] Recurrent cold sores; [place], [place] Seasonal allergies; 3RD FLR,[address] [address] Chronic rhinitis; [address] [phone] Vitamin D deficiency [facility] [address] (Work) [place], [place] [address] [phone] Social History Tobacco Use Types Packs/Day Years Used Date Smoking Tobacco: Never Smokeless Tobacco: Never Alcohol Use Standard Drinks/Week Comments Yes 0 (1 standard drink = 0.6 oz pure alcoho l) wine few times/wk Sex Assigned at Date Recorded Female 12/20/2018 4:10 PM CDT documented as of this encounter Last Filed Vital Signs Vital Sign Reading Time Taken Comments Blood Pressure 110/66 07/07/2018 12:59 PM CDT Pulse 66 07/07/2018 12:59 PM CDT Temperature - - Respiratory Rate - - Oxygen Saturation - - Inhaled Oxygen Concentration - - Weight 71.7 kg (158 lb) 07/07/2018 12:59 PM CDT Height 168.9 cm (5' 6.5) 07/07/2018 12:59 PM CDT Body Mass Index 25.12 07/07/2018 12:59 PM CDT documented in this encounter Progress Notes Lisseth Vang MD - 07/07/2018 1:00 PM CDT Patient Name: Yamileth Sheikh present for Pre-operative clearance Procedure: Cataract Surgery Surgeon: Dr. Martinez Galicia Date of Surgery: Right eye 07/18/2018; Left eye 07/25/2018 Location of Surgery: [facility] Fax number for pre-op form: Fax: [facility] [phone] Chief Complaint: Progressive loss of vision and cloudiness/blurry vision Allergies: Allergies Allergen Reactions ??? Codeine Nausea [...] ??? 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 Has uterine fibroids [[place]]. PAST MEDICAL HISTORY: Past Medical History: Diagnosis [...] bladder implant, interstim ??? Vitamin D deficiency PAST SURGICAL HISTORY: Past Surgical History: Procedure [...] microwaved. Dr Baer ENT ??? uteroscopy 05/04/2018 REVIEW OF SYSTEMS: CONSTITUTIONAL: NEGATIVE for fever, chills, weight loss with calorie recording [1000 calories/day] and walking program ENT/MOUTH: NEGATIVE for ear, mouth and throat problems RESP: NEGATIVE for significant cough or SOB CV: NEGATIVE for chest pain, palpitations or peripheral edema MEDICATIONS: ===== Current Outpatient Prescriptions Medication ??? amoxicillin (AMOXIL) [...] PO ??? Magnesium 200 MG TABS ??? OTHER MEDICAL SUPPLIES ??? Probiotic Product (PROBIOTIC DAILY PO) ??? TURMERIC PO ??? valACYclovir (VALTREX) 1000 mg tablet No current facility-administered medications for this visit. EXAM: ===== BP 110/66 Pulse 66 Ht 1.689 m (5' 6.5) Wt 71.7 kg (158 lb) BMI 25.12 kg/m2 Wt Readings from Last 5 Encounters: 07/07/18 71.7 kg (158 lb) 07/07/18 71.8 kg (158 lb 4.8 oz) 05/31/18 73.6 kg (162 lb 3.2 oz) 04/22/18 77.1 kg (170 lb) 04/07/18 79.3 kg (174 lb 14.4 oz) GENERAL APPEARANCE: healthy, alert and no distress HENT: ear canals and TM's normal and nose and mouth without ulcers or lesions RESP: lungs clear to auscultation - no rales, rhonchi or wheezes CV: regular rate and rhythm, normal S1 S2, no S3 or S4 and no murmur, click or rub ABDOMEN: soft, nontender, no HSM or masses and bowel sounds normal NEURO: Normal strength and tone, sensory exam grossly normal, mentation intact and speech normal DIAGNOSTICS: No labs or EKG required for low risk surgery IMPRESSION: 72 year old woman with nuclear senile cataract of both eyes. Will have cataract surgery by Dr. Manisha Galicia on Right eye 07/18/2018 and Left eye 07/25/2018 at [facility]. - Hold on ASA and fish oil - Well controlled Hypertension and hyperlipidemia For above listed surgery and anesthesia: Patient is LOW risk for surgery and perioperative complications. RECOMMENDATIONS: Below recommendations were reviewed with patient Approval given to proceed with proposed procedure, without further diagnostic evaluation. Signed Electronically by: Lisseth Vang Copy of this consultation report is provided to requesting physician. documented in this encounter Nursing Notes Addison Martinez LPN - 07/07/2018 1:00 PM CDT Chief Complaint Patient presents with ??? Pre-Op Exam 07/25/18 Dr. Galicia, Right Eye Phacoemulsification with Intraocular Lens documented in this encounter Plan of Treatment Upcoming Encounters Date Type Specialty Care Team Description 09/10/2022 Office Visit Internal Medicine Margot Branham MD [address] [address] (Wo rk) documented as of this encounter Visit Diagnoses Diagnosis Vaginal dryness Other specified symptom associated with female genital organs Screen for colon cancer Special screening for malignant neoplasm s, colon Atrophic vaginitis Postmenopausal atrophic vaginitis Recurrent cold sores Herpes simplex without mention of compli cation Seasonal allergies Allergic rhinitis, cause unspecified Chronic rhinitis Vitamin D deficiency Unspecified vitamin D deficiency documented in this encounter Additional Health Concerns Assessment Noted Time PHQ-9 Depression Total Score: 1 03/30/2018 7:10 AM CDT documented as of this encounter Care Teams Tip Inserter Relationship Specialty Start Date End Date Lisseth Vang MD PCP - General 04/13/16 11/14/[address] [place], [place] [id number] Carlota Acuña MD MD Urology 04/10/[address] [place] [address] Lisseth Vang MD PCP Family Practice 03/30/16 11/14/[address] [place] [address] Michelle Montana, RN Registered Nurse Urology 05/07/17 Anh Costa APRN ARCH CUSHION PRESS OPERATOR Nurse Practitioner Nurse Practitioner 10/07 Martinez Galicia MD MD Ophthalmology 04/18/[address] [place] [id number] documented as of this encounter
--- OUTSIDE RECORDS SUMMARY | 2022-07-30 19:26 | XMS_ITS | Encounter Summary ---
:1945 Author Organization [facility] Address [address] [place] [address]. [place] [address] Care Team Providers Name Role Phone Lisseth Vang MD Primary Care Provider Carlota Landeros MD Unavailable Lisseth Vang MD Unavailable Michelle Montana RN Unavailable Anh Costa APRN MICROBIOLOGY LAB TECHNICIAN Unavailable Unavailable Martinez Galicia MD Unavailable Reason for Visit Reason Comments Follow Up Nuclear sclerotic cataract Encounter Details Date Type Department Care Team Description 07/05/2018 Office Visit [facility] Eye Martinez Galicia senile cataract of both eyes; Clinic - Latoya Pearson MD Irregular ast[facility]ism of [facility] [address] Clin [address]A [phone] [place], [place] (Work) [address] [phone] Social History Tobacco Use Types Packs/Day Years Used Date Smoking Tobacco: Never Smokeless Tobacco: Never Alcohol Use Standard Drinks/Week Comments Yes 0 (1 standard drink = 0.6 oz pure alcoho l) wine few times/wk Sex Assigned at Date Recorded Female 12/20/2018 4:10 PM CDT documented as of this encounter Progress Notes Martinez Galicia MD - 07/05/2018 7:30 AM CDT Assessment & Plan Yamileth Sheikh is a 72 year old female with the following diagnoses: 1. Nuclear senile cataract of both eyes 2. Irregular astigmatism of both eyes Here for intraocular lens calcs after contact lens holiday Cataract, both eyes - Visually significant glare and blur affecting reading/driving Special equipment/needs: Anesthesia:Topical Dilation:Good Iris expansion:Not needed Pseudoexfoliation: No pseudoexfoliation Trypan Blue: No Dex Goal emmetropia right eye with minimono vision left eye (-1.25 to -1.50) Right eye first, discussed possible K edema given [facility]'s Attending Physician Attestation: Complete documentation of historical [...] encounter Nursing Notes Lisa Alcala COA - 07/05/2018 7:30 AM CDT Chief Complaints and History of Present Illnesses Patient presents with ??? Follow Up For Nuclear sclerotic cataract HPI Affected eye(s): Both Symptoms: No decreased vision Duration: 1 month Frequency: Constant Do you have eye pain now?: No Comments: Pt here for f/u of cataract discussion and measurements Pt reports no change in vision since 06/02/18 visit Lisa MILLS 8:09 AM July 05, 2018 documented in this encounter Plan of Treatment Upcoming Encounters Date Type Specialty Care Team Description 09/10/2022 Office Visit Internal Medicine LogeaMargot man MD [address] [place] [address] (Wo rk) documented as of this encounter Procedures Procedure Name Priority Date/Time Associated Diagnosis Comme nts CORNEAL TOPOGRAPHY Routine 07/06/2018 12:09 Irregular Resul ts for this OU (BOTH EYES) PM CDT astigmatism of both proced ure are in eyes the results section. IOL BIOMETRY W/ IOL Routine 07/06/2018 12:08 Nuclear senile Re sults for this CALC OU (BOTH EYES) PM CDT cataract of both proc edure are in eyes the results section. documented in this encounter Results Corneal Topography OU (both [...] in this encounter Visit Diagnoses Diagnosis Nuclear senile cataract of both eyes Irregular astigmatism of both eyes Irregular astigmatism documented in this encounter Additional Health Concerns Assessment Noted Time PHQ-9 Depression Total Score: 1 03/30/2018 7:10 AM CDT documented as of this encounter Care Teams Sports Journalist Relationship Specialty Start Date End Date Lisseth Vang MD PCP - General 04/13/16 11/14/[address] [place], [place] [address] Carlota Landeros MD MD Urology 04/10/[address] [place] [address] Lisseth Vang MD PCP Family Practice 03/30/[address] [place] [address] Michelle Montana, MODESTA Registered Nurse Urology 05/07/17 Anh Costa APRN MICROBIOLOGY LAB TECHNICIAN Nurse Practitioner Nurse Practitioner 10/07 Martinez Galicia MD MD Ophthalmology 04/18/[address] [place] [address] documented as of this encounter
--- OUTSIDE RECORDS SUMMARY | 2022-07-30 19:26 | XMS_ITS | Encounter Summary ---
:1945 Author Organization [facility] Address [address] [place] [address]. [place] [address] Care Team Providers Name Role Phone Lisseth Vang MD Primary Care Provider Carlota Landeros MD Unavailable Lisseth Vang MD Unavailable Michelle Montana RN Unavailable Anh Costa APRN E COMMERCE ARCHITECT Unavailable Unavailable Martinez Galicia MD Unavailable Encounter Details Date Type Department Care Team Description 07/18/2018 Hospital Encounter [facility] Martinez Galicia Nucl ear sclerotic and Procedure MD Lili cataract of both [address] eyes (Primary Dx) [address] [place], [place] 5th Floor [address] [place], [place] [phone] [address] (Work) [phone] Social History Tobacco Use Types Packs/Day Years [...] Ochoa RN - 07/18/2018 8:56 AM CDT [facility] Home [...] appointment with your doctor tomorrow at the [facility] ([phone]). Bring all your prescribed eye drops with you to this follow-up appointment. ??? If you take glaucoma medications, bring them with you to your follow-up appointment tomorrow. ??? Use medication exactly as prescribed by your doctor. You may restart your regular home medications. ??? Call your doctor???s office at [phone] if any of the following should occur: - Any sudden vision changes, including decreased vision - Nausea or severe headache - Increase in pain that is not controlled with Acetaminophen (Tylenol) or Ibuprofen (Advil) - Signs of infection (pus, increasing redness or tenderness) - Severe sensitivity to light An increase in floaters (black spots in front of your vision)[facility] Scopolamine [...] at least 24 hours after you leave [facility]. Do not drive or use heavy equipment. [...] Your doctor is: Dr. Martinez Galicia, Ophthalmology: [phone] Or dial [phone] and ask for the resident front end java developer for: Ophthalmology For emergency care, call the: [facility]: [phone] (TTY for hearing impaired: [phone]) - documented in this encounter Medications at [...] Hyperlipidemia, unspecified hyperlipidemia type azelastine (ASTELIN) 0.1 [place] 2 sprays into 90 mL 11 08/12/2018 [...] 2 times daily capsule fluticasone (FLONASE) 50 [place] 2 sprays into 1 Bottle 11 08/12/2018 [...] times daily creamIndications: External hemorrhoids ipratropium (ATROVENT) [place] 2 sprays into 1 Box 11/201710/10/2018 0.06 [...] implant Right eye. SURGEON: Martinez Galicia M.D. Communications Administrator: Ermias Russell MD INDICATIONS: The patient Yamileth [...] Implant Name Type Inv. Item Serial No. Weaver Needle Loom Lot No. LRB No. Used EYE IMP IOL CHALO PCL TECNIS [id number] 20.0 Lens/Eye Implant EYE IMP IOL CHALO PCL TECNIS [id number] 20.0 [id number] [employer] Right 1 Attending Physician Procedure Attestation: I was present for the entire procedure Martinez Galicia MD Cadmium Plater, Comprehensive Ophthalmology Department of Ophthalmology and Visual Neurosciences [facility] documented in this encounter Plan of Treatment Upcoming Encounters Date Type Specialty Care Team Description 09/10/2022 Office Visit Internal Medicine LogeaisMargot MD [address] [address] (Wo rk) documented as of this encounter Procedures Procedure Name Priority Date/Time Associated Diagnosis Comme nts PHACOEMULSIFICATION, 07/18/2018 8:22 AM CDT Cataracts CATARACT, WITH STANDARD INTRAOCULAR LENS IMPLANT INSERTION Special Needs Latex Allergy documented in this encounter Visit Diagnoses Diagnosis Nuclear sclerotic cataract of both eyes - Primary Senile nuclear sclerosis documented in this encounter Administered Medications Inactive [...] Pre-procedure cyclopentolate (CYCLOGYL) 1 % ophthalmic Given 07/18/2018 [...] Wed07/18/18 at 0800, Until Wed07/18/18 at 0852 phenylephrine (MYDFRIN /ALESSIO-SYNEPHRINE) 2.5 % Given 8:15 [...] Pre-procedure tropicamide (MYDRIACYL) 1 % ophthalmic Given 07/18/2018 [...] documented as of this encounter Care Teams Litharge Mill Operator Relationship Specialty Start Date End Date Lisseth Vang MD PCP - General 04/13/16 11/14/[address] [place], [place] [address] Carlota Landeros MD MD Urology 04/10/[address] [place], [place] [address] Lisseth Vang MD PCP Family Practice 03/30/16 11/14/[address] [place], [place] [address] Michelle Montana, MODESTA Registered Nurse Urology 05/07/17 Anh Costa APRN E COMMERCE ARCHITECT Nurse Practitioner Nurse Practitioner 10/07 Martinez Galicia MD MD Ophthalmology 04/18/18 [address] [place], [place] [address] documented as of this encounter
--- OUTSIDE RECORDS SUMMARY | 2022-07-30 19:26 | XMS_ITS | Encounter Summary ---
:1945 Author Organization [place] Address [address] [place] [address]. [place] [address] Care Team Providers Name Role Phone Lisseth Vang MD Primary Care Provider Carlota Landeros MD Unavailable Lisseth Vang MD Unavailable Michelle Montana RN Unavailable Anh Costa APRN, CNP Unavailable Unavailable Martinez Galicia MD Unavailable Reason for Visit CV Testing - Closed Specialty Diagnoses / Procedures Referred By Contact Refer red To Contact Diagnoses Fatigue, unspecified type Palpitations Elevated brain natriuretic peptide (BNP) level Anh Costa APRN CNP Procedures Echocardiogram Complete [address] [facility] [address] [place] [address] Referral ID Status Reason Start Date Expiration Date Visits Requ ested Visits Authorized [id number] Closed 04/12/2018 04/12/2019 1 1 Encounter Details Date Type Department Care Team Description 04/22/2018 Radiant Appointment [facility] Echo Anh Costa Fatigue, unspecified type; 909 [facility] CLAUDIA Marsh CNP Palpitations; 3rd Floor Elevated brain natriuretic p eptide (BNP) [place] [address] Social History Tobacco Use Types [...] Visit Internal Medicine Margot Branham MD 909 [facility] [address] [place], [place] [address] (Wo rk) documented as of this encounter Procedures Procedure Name Priority Date/Time Associated Diagnosis Comme nts ECHO COMPLETE Routine 04/22/2018 3:21 PM Fatigue, unspecified Results for this CDT type procedure are in Palpitations the results Elevated brain section. natriuretic peptide (BNP) level documented in this encounter Results Echocardiogram Complete (04/22/2018 3:21 PM CDT) Anatomical Region Laterality Modality Echocardiography Specimen (Source) Anatomical Collection Method Collection Time Re ceived Time Location / / Volume Laterality 04/22/2018 3:02 PM CDT Narrative 04/22/2018 4:34 PM CDT [id number]^TALIA^ANH^RAMIN [facility] Diagnostic and Treamtent-3rd Floor 909 [facility] [place] [address] Name: IMELDA GARCIA : 1945 Study Date: 04/22/2018 03:02 PM Age: 72 yrs Gender: Female [place] [facility] [place] For Study: Fatigue, unspecified t ype, Palpitations Ordering Physician: ANH COSTA Referring Physician: ANH COSTA Performed By: BRITTANIE Wilson BSA: 1.9 m2 Height: 67 in Weight: 174 lb BP: 127/78 mmHg __ Procedure Echocardiogram with two-dimensional, col or and spectral Doppler performed. __ Interpretation Summary Global and regional left ventricular fun ction is normal with an EF of 60-65%. Left ventricular wall thickness and size are normal. Left ventricular diastolic function is n ormal. Global right ventricular function and si ze are normal. Pulmonary artery systolic pressure is no rmal. No pericardial effusion. Mild tricuspid insufficiency is present. Previous study not available for félix son. __ Left Ventricle Global and regional left ventricular fun ction is normal with an EF of 60-65%. Left ventricular wall thickness is jarod l. Left ventricular size is normal. Left ventricular diastolic function is n ormal. Right Ventricle Global right ventricular function is nor mal. The right ventricle is normal size. Atria The left atrium appears normal. The righ t atria appears normal. Mitral Valve The mitral valve is normal. Trace mitral insufficiency is present. Aortic Valve The aortic valve is tricuspid. Mild aort ic valve sclerosis is present. Trace aortic insufficiency is present. Tricuspid Valve The tricuspid valve is normal. Mild tric uspid insufficiency is present. Right ventricular systolic pressure is 25mmHg above the right atrial pressure. Pulmonary artery systolic pressure is no rmal. Pulmonic Valve The pulmonic valve is normal. Vessels The inferior vena cava was normal in siz e with preserved respiratory variability. The aorta root is normal. S inuses of Valsalva 3.0 cm. Estimated mean right atrial pressure is 3 mmHg (no rmal). Pericardium No pericardial effusion is present. Compared to Previous Study Previous study not available for félix delgado. Attestation I have personally viewed the imaging and agree with the interpretation and report as documented by the fellow, Jose Maria Randall, and/or edited by me. __ MMode/2D Measurements & Calculations IVSd: 0.80 cm LVIDd: 4.5 cm LVIDs: 3.2 cm LVPWd: 0.81 cm FS: 30.0 % LV mass(C)d: 116.5 grams LV mass(C)dI: 61.1 grams/m2 Ao root diam: 3.0 cm asc Aorta Diam: 2.7 cm LVOT diam: 2.0 cm LVOT area: 3.0 cm2 LA Volume (BP): 60.9 ml LA Volume Index (BP): 31.9 ml/m2 RWT: 0.36 Doppler Measurements & Calculations MV E max jessica: 63.1 cm/sec MV A max jessica: 70.3 cm/sec MV E/A: 0.90 MV dec time: 0.23 sec PA V2 max: 86.9 cm/sec PA max P.0 mmHg PA acc time: 0.15 sec TR max jessica: 248.4 cm/sec TR max P.7 mmHg E/E' av.6 Lateral E/e': 5.7 Medial E/e': 9.4 __ Report approved by: Lew LUGO 04:34 PM Procedure Note Jocelyn Martínez MD - 04/22/2018Formatting o f this note might be different from the original. [id number] [id number]^TALIA^ANH^RAMIN [facility] Diagnostic and Treamtent-3rd Floor [address] [place] [address] Name: IMELDA GARCIA : 1945 Study Date: 04/22/2018 03:02 PM Age: 72 yrs Gender: Female [place] [facility] [place] For Study: Fatigue, unspecified t ype, Palpitations Ordering Physician: ANH COSTA Referring Physician: ANH COSTA Performed By: BRITTANIE Sloannico SerranoWilson BSA: 1.9 m2 Height: 67 in Weight: 174 lb BP: 127/78 mmHg __ Procedure Echocardiogram with two-dimensional, col or and spectral Doppler performed. __ Interpretation Summary Global and regional left ventricular fun ction is normal with an EF of 60-65%. Left ventricular wall thickness and size are normal. Left ventricular diastolic function is n ormal. Global right ventricular function and si ze are normal. Pulmonary artery systolic pressure is no rmal. No pericardial effusion. Mild tricuspid insufficiency is present. Previous study not available for compari son. __ Left Ventricle Global and regional left ventricular fun ction is normal with an EF of 60-65%. Left ventricular wall thickness is jarod l. Left ventricular size is normal. Left ventricular diastolic function is n ormal. Right Ventricle Global right ventricular function is nor mal. The right ventricle is normal size. Atria The left atrium appears normal. The righ t atria appears normal. Mitral Valve The mitral valve is normal. Trace mitral insufficiency is present. Aortic Valve The aortic valve is tricuspid. Mild aort ic valve sclerosis is present. Trace aortic insufficiency is present. Tricuspid Valve The tricuspid valve is normal. Mild tric uspid insufficiency is present. Right ventricular systolic pressure is 25mmHg above the right atrial pressure. Pulmonary artery systolic pressure is no rmal. Pulmonic Valve The pulmonic valve is normal. Vessels The inferior vena cava was normal in siz e with preserved respiratory variability. The aorta root is normal. S inuses of Valsalva 3.0 cm. Estimated mean right atrial pressure is 3 mmHg (no rmal). Pericardium No pericardial effusion is present. Compared to Previous Study Previous study not available for compari son. Attestation I have personally viewed the imaging and agree with the interpretation and report as documented by the fellow, Jose Maria Randall, and/or edited by me. __ MMode/2D Measurements & Calculations IVSd: 0.80 cm LVIDd: 4.5 cm LVIDs: 3.2 cm LVPWd: 0.81 cm FS: 30.0 % LV mass(C)d: 116.5 grams LV mass(C)dI: 61.1 grams/m2 Ao root diam: 3.0 cm asc Aorta Diam: 2.7 cm LVOT diam: 2.0 cm LVOT area: 3.0 cm2 LA Volume (BP): 60.9 ml LA Volume Index (BP): 31.9 ml/m2 RWT: 0.36 Doppler Measurements & Calculations MV E max jessica: 63.1 cm/sec MV A max jessica: 70.3 cm/sec MV E/A: 0.90 MV dec time: 0.23 sec PA V2 max: 86.9 cm/sec PA max P.0 mmHg PA acc time: 0.15 sec TR max jessica: 248.4 cm/sec TR max P.7 mmHg E/E' av.6 Lateral E/e': 5.7 Medial E/e': 9.4 __ Report approved by: Lew LUGO 04:34 PM Anh Costa APRN, CNP CV ECHO ORDERABLES documented in this encounter Visit Diagnoses Diagnosis Fatigue, unspecified type Palpitations Elevated brain natriuretic peptide (BNP) level Other nonspecific findings on examinatio n of blood documented in this encounter Additional Health Concerns Assessment Noted Time PHQ-9 Depression Total Score: 1 03/30/2018 7:10 AM CDT documented as of this encounter Care Teams Porcelain Technician Relationship Specialty Start Date End Date Lisseth Vang MD PCP - General 04/13/16 11/14/[address] [place] [address] Carlota Landeros MD MD Urology 04/10/[address] [place], [place] [id number] Lisseth Vang MD PCP Family Practice 03/30/16 11/14/[address] [place], [place] [id number] Michelle Montana, MODESTA Registered Nurse Urology 05/07/17 Anh Costa APRN CNP Nurse Practitioner Nurse Practitioner 10/07 Martinez Galicia MD MD Ophthalmology 04/18/[address] [place] [address] documented as of this encounter
--- OUTSIDE RECORDS SUMMARY | 2022-07-30 19:26 | XMS_ITS | Encounter Summary ---
:1945 Author Organization [place] Address [address] [place] [address]. [place] [address] Care Team Providers Name Role Phone Shanell Baum MD Primary Care Provider Carlota Landeros MD Unavailable Shanell Baum MD Unavailable Michelle Montana RN Unavailable Anh Costa APRN AUDIT OFFICER Unavailable Unavailable Reason for Visit Diagnostic Imaging Dexa - Closed Specialty Diagnoses / Procedures Referred By Contact Refer red To Contact Diagnoses Disorder of bone and cartilage Shanell Baum MD Procedures Dexa Hip, Pelvis, Spine [address] [place], [place] [address] Referral ID Status Reason Start Date Expiration Date Visits Requ ested Visits Authorized [id number] Closed 03/29/2018 03/29/2019 1 1 Encounter Details Date Type Department Care Team Description 04/13/2018 Radiant Appointment [facility] D[facility] Baum rder of bone and Center Dexa MD Shanell cartilage 909 [facility] [address] 1st Floor [address] [facility], [address] [place] [id number] [phone] Social History Tobacco Use Types Packs/Day Years [...] Office Visit Internal Medicine Margot Branham MD [address] [place] [id number] (Wo rk) documented as of this encounter Procedures Procedure Name Priority Date/Time Associated Diagnosis Comme nts DX HIP/PELVIS/SPINE Routine 04/13/2018 8:53 AM Disorder of bon e and Results for this CDT cartilage procedure are i n the results section. documented in this encounter Results Dexa Hip, Pelvis, Spine (04/13/2018 8:53 AM CDT) Anatomical Region Laterality Modality Dexa Bone Mineral Density Specimen (Source) Anatomical Location Collection Method / Collectio n Time Received Time / Laterality Volume Narrative 04/16/2018 3:26 PM CDT [facility] [address] [place] [address] Phone: ?? Fax: Final Patient name: ?? IMELDA GARCIA ([id number] ) Patient demographics: [age] year old [place] Female of 66.5 in. height and 174.5 lbs. weight Ordering provider: SHANELL BAUM History: ??EVAL BONE DENSITY, family hx of osteoporosis, LOW BONE DENSITY, POSTMENOPAUSAL status, right hip hardwar e, right hip replacement Current treatments: Vitamin D, Calcium, ESTROGEN Scan: ??DXA exam ([id number] ): [facility] Exam date: ??04/13/2018 Comparison: ?? 04/13/2018 11/20/2013 08/31/2012 11/07/2009 05/02/2008 Dual energy x-ray absorptiometry (DXA) r esults: Region Date BMD T - score Z - score BMD change from baseline BMD % change from baseline BMD change from previous B MD % change from previous L1-L3 04/13/2018 1.039 g/cm?? -1.1 0.1 - 0.020 g/cm?? -1.9% 0.009 g/cm?? 0.9% L1-L3 11/20/2013 1.030 g/cm? L1-L3 08/31/2012 1.016 g/cm? L1-L3 11/07/2009 1.065 g/cm? L1-L3 05/02/2008 1.059 g/cm? Neck 04/13/2018 0.887 g/cm?? -1.1 0.4 ? Neck 11/20/2013 0.907 g/cm? Neck 08/31/2012 0.919 g/cm? Neck 11/07/2009 0.883 g/cm? Neck 05/02/2008 0.883 g/cm? Total 04/13/2018 0.772 g/cm?? -1.9 -0.7 -0.081 g/cm?? -9.5% -0.025 g/cm?? -3.1% Total 11/20/2013 0.797 g/cm? Total 08/31/2012 0.827 g/cm? Total 11/07/2009 0.789 g/cm? Total 05/02/2008 0.853 g/cm? Radius 33% 04/13/2018 0.561 g/cm?? -2.0 -0.1 -0.180 g/cm?? -24.3% -0.089 g/cm?? -13.7% Radius 33% 11/20/2013 0.650 g/cm? Radius 33% 08/31/2012 0.683 g/cm? Radius 33% 11/07/2009 0.702 g/cm? Radius 33% 05/02/2008 0.741 g/cm? Conclusions: The most negative and valid T-score of - 2.0 at the level of the wrist ?? corresponds with low bone density. The risk of osteoporotic fracture increa ses approximately 2-fold for each 1.0 SD decrease in T-score. ??Low bone d ensity is not the only risk factor for fracture; consider factors such as p atient's age, fall risk, injury risk, previous osteoporotic fracture, fa ector history of osteoporosis, etc. People with an elevated risk of fractur e should be regularly evaluated for low bone mineral density. ??For shira ents eligible for Medicare, routine testing is allowed once every 2 years. T esting frequency can be increased for patients on corticosteroids. Clinica l correlation is recommended. Taking into account the precision errors (reference 2) for this center A. these calculated changes in BMD to th e previous exam are significant: -13.7% at the level of the wrist B. these calculated changes in BMD to th e ??baseline exam are significant: -9.5% at the level of the left total hip , -24.3% at the level of the wrist Comparison Percent changes not mentioned or within remaining regions are either insignificant or invalid. The significance of the change in the la teral spine is unknown as the least significant change for this region has not been determined for this center. Please note that the differential diagno sis of BMD increase in the spine includes improvement due to pharmacother apy vs inter-current progression of spine degeneration or fracture Total hip rather than femoral neck regio ns are to be compared because larger areas give better precision. Bone densitometry cannot rule out second kitty causes of bone loss. Therefore, further metabolic testing to look for secondary causes of low BMD should be performed if indicated. Cl inical correlation is recommended Lateral spine imaging with standard radi ography or Vertebral Fracture Assessment (VFA) may be performed when T -score is < -1.0 AND historical height loss > 4 cm (>1.5 inch es); or glucocorticoid therapy of prednisone ? 5 mg/day or equivalent for ? 3 months is present. Clinical correlation is strongly recomme nded Feel free to contact DXA services if you have any questions or comments. ?? Thank you for the opportunity to be of s ervice to you and your patient. Principal result crew leader/control room operator: Adiel Quinn MD, CCD Manufacturing Quality Inspectorirrigation system operator Division of Endocrinology References: 1. ISCD position statements: ??www.iscd. org ??(includes the report of the 2014 ??Position Development Conference) 2. LSC = least significant changes at th e [facility] Imaging Center AP spine = ??0.032 g/cm2 ??(03.29.2007) Left hip = 0.029 g/cm2 ??(03.18.2007) Right hip = 0.018 g/cm2 ??(03.18.2007) Left mid radius = 0.043 g/cm2 ??( 007) Technical comments: L1 T-score: ?? -1.6 ??, ??L2 T-score: ?? -1.2, ??L3 T-score: ??-0.8, ??L4 T-score: 1.9. ??In the circumstances, the lumbar spine is represented by ??L1-3. 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, unspecif ied documented in this encounter Additional Health Concerns Assessment Noted Time PHQ-9 Depression Total Score: 1 03/30/2018 7:10 AM CDT documented as of this encounter Care Teams Manager Front Relationship Specialty Start Date End Date Shanell Baum MD PCP - General 04/13/16 11/14/[address] [place], [place] [address] Carlota Landeros MD MD Urology 04/10/[address] [place], [place] [address] Shanell Baum MD PCP Family Practice 03/30/16 11/14/[address] [place], [place] [address] Michelle Montana, RN Registered Nurse Urology 05/07/17 Anh Costa APRN CNP Nurse Practitioner Nurse Practitioner 10/07 documented as of this encounter
--- OUTSIDE RECORDS SUMMARY | 2022-07-30 19:26 | XMS_ITS | Encounter Summary ---
:1945 Author Organization [place] Address [address] [place] [address]. [place] [address] Care Team Providers Name Role Phone Lisseth Vang MD Primary Care Provider Carlota Landeros MD Unavailable Lisseth Vang MD Unavailable Michelle oMntana RN Unavailable Anh Costa APRN SPIN TABLE OPERATOR Unavailable Unavailable Martinez Galicia MD Unavailable Reason for Visit Reason Comments Consult For Cataract, New Pt Eye Exam. Encounter Details Date Type Department Care Team Description 06/02/2018 Office Visit [facility] Eye Martinez Galicia sclerotic cataract of both eyes (Primary Dx); Clinic - Latoya Pearson MD Fuchs' endothelial dystrophy - Both Eyes ; Nakul Knightensteen [address] Uses contact lenses - Both Eyes; Building [place], [place] Bilateral dry eyes [address] [address] [address] [facility] [address] [phone] [place], [place] (Work) [address] [phone] Social History Tobacco Use Types Packs/Day Years Used Date Smoking Tobacco: Never Smokeless Tobacco: Never Alcohol Use Standard Drinks/Week Comments Yes 0 (1 standard drink = 0.6 oz pure alcoho l) wine few times/wk Sex Assigned at Date Recorded Female 12/20/2018 4:10 PM CDT documented as of this encounter Progress Notes Martinez Galicia MD - 06/02/2018 8:30 AM CDT Assessment & Plan Yamileth Sheikh is a 72 year old female with the following diagnoses: 1. Nuclear sclerotic cataract of both eyes 2. Fuchs' endothelial dystrophy - Both Eyes 3. Uses contact lenses - Both Eyes 4. Bilateral dry eyes Cataract, both eyes - Visually significant glare and blur affecting reading/driving Risks, benefits and alternatives to cataract extraction/IOL implantation discussed; consent obtained. Will schedule surgery today Special equipment/needs: Anesthesia:Topical Dilation:Good Iris expansion:Not needed Pseudoexfoliation: No pseudoexfoliation Trypan Blue: No Dex Goal emmetropia (possible interest in multifocal) Will need IOLS/topography 1 week prior to surgery after contact lens holiday and to discuss final intraocular lens selection Artificial tears encouraged Right eye first, discussed possible K edema given Fuc's Attending Physician Attestation: Complete documentation of historical [...] MD documented in this encounter Nursing Notes RALPH NICOLE - 06/02/2018 8:30 AM CDT Chief Complaints and History of Present Illnesses Patient presents with ??? Consult For Cataract, New Pt Eye Exam. HPI Affected eye(s): Both Symptoms: (Comment: Pt notes that sh was told 5-6 yrs ago she had slight Catarccts ) No floaters No flashes Glare No halos No tearing No Dryness No itching No burning Eye discharge (Comment: BE in the AM, Pt is starting lid cleaning with baby shampoo, seems to help.) Duration: 3 years Do you have eye pain now?: No Comments: Pt reports blurry vision spot inferior temporal that started 2 days ago, more noticeble inbrighter light. Pt thinks they have slight blepharitis in BE. Notes that she is using lid scrubs in am, seems to clear up for the day. Last eye exam was 3 years ago. Pt notes that vision is still about the same since last eye exam. Pt would like a new Rx for glasses. 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 Uses contact lenses - Both Eyes Problems with sight Bilateral dry eyes Tear film insufficiency, unspecified documented in this encounter Additional Health Concerns Assessment Noted Time PHQ-9 Depression Total Score: 1 03/30/2018 7:10 AM CDT documented as of this encounter Care Teams Weather Observer Relationship Specialty Start Date End Date Lisseth Vang MD PCP - General 04/13/16 11/14/[address] [place], [place] [address] Carlota Landeros MD MD Urology 04/10/[address] [place], [place] [phone] Lisseth Vang MD PCP Family Practice 03/30/16 11/14/[address] [place], [place] [address] Michelle Montana, RN Registered Nurse Urology 05/07/17 Anh Costa APRN SPIN TABLE OPERATOR Nurse Practitioner Nurse Practitioner 10/07 Martinez Galicia MD MD Ophthalmology 04/18/[address] [place] [address] documented as of this encounter
--- OUTSIDE RECORDS SUMMARY | 2022-07-30 19:26 | XMS_ITS | Encounter Summary ---
:1945 Author Organization [place] Address [address] [place] [address]. [place] [address] Care Team Providers Name Role Phone Lisseth Vang MD Primary Care Provider Carlota Landeros MD Unavailable Lisseth Vang MD Unavailable Michelle Montana RN Unavailable Anh Costa APRN TOPOLOGY TEACHER Unavailable Unavailable Reason for Visit Diagnostic Imaging Dexa - Closed Specialty Diagnoses / Procedures Referred By Contact Refer red To Contact Diagnoses Disorder of bone and cartilage Lisseth Vang MD Procedures DX Wrist Heel Radius [address] [place], [place] [address] Referral ID Status Reason Start Date Expiration Date Visits Requ ested Visits Authorized [id number] Closed 04/13/2018 04/13/2019 1 1 Encounter Details Date Type Department Care Team Description 04/13/2018 Radiant Appointment [facility] Dago Vang rder of bone and Center Dexa MD Lisseth cartilage [address] [facility] [address] [facility], [address] [place] [address] Social History Tobacco Use Types Packs/Day Years [...] Visit Internal Medicine Margot Branham MD [address] [address] (Wo rk) documented as of this encounter Procedures Procedure Name Priority Date/Time Associated Diagnosis Comme nts DX Routine 04/13/2018 8:52 AM Disorder of bone and R esults for this WRIST/HEEL/RADIUS CDT cartilage procedure are in the results section. documented in this encounter Results DX Wrist Heel Radius (04/13/2018 8:52 AM CDT) Anatomical Region Laterality Modality Dexa Bone Mineral Density Specimen (Source) Anatomical Location Collection Method / Collectio n Time Received Time / Laterality Volume Narrative 04/16/2018 3:26 PM CDT Please see the final reports of the Dexa Hip Spine and pelvis performed on the same day for a combined report. ?? 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, unspecif ied documented in this encounter Additional Health Concerns Assessment Noted Time PHQ-9 Depression Total Score: 1 03/30/2018 7:10 AM CDT documented as of this encounter Care Teams Alligator Shear Operator Relationship Specialty Start Date End Date Lisseth Vang MD PCP - General 04/13/16 11/14/[address] [place], [place] [address] Carlota Landeros MD MD Urology 04/10/[address] [place] [address] Lisseth Vang MD PCP Family Practice 03/30/16 11/14/[address] [place] [address] Montana, Michelle, RN Registered Nurse Urology 05/07/17 Anh Costa APRN TOPOLOGY TEACHER Nurse Practitioner Nurse Practitioner 10/07 documented as of this encounter
--- OUTSIDE RECORDS SUMMARY | 2022-07-30 19:26 | XMS_ITS | Encounter Summary ---
:1945 Author Organization [facility] Address [address] [place] [address]. [place] [address] Care Team Providers Name Role Phone Lisseth Vang MD Primary Care Provider Carlota Landeros MD Unavailable Lisseth Vang MD Unavailable Michelle Montana RN Unavailable Anh Costa APRN WATER TREATMENT PLANT MECHANIC Unavailable Unavailable Martinez Galicia MD Unavailable Encounter Details Date Type Department Care Team Description 07/25/2018 Anesthesia Event [facility] and Perez Jesus MD [address] [place], [place] [id number] Procedure Center Clyde Andrade MD [facility] [address] [facility] [address] [place] [address] 909 [facility] [address] 5th [place] [address] Anesthesia Record Procedure Summary Procedure Name Responsible Anesthesia Start Anesthesia Stop Anesthesiologist Time Time Left Eye Perez Jesus MD 07/25/18 1004 07/25/18 1026 Phacoemulsification with Intraocular Lens (Left: Eye) Events Date Time Event Comment 07/25/2018 0832 1004 An Start 1004 An Start Data 1012 MD Present 1015 AN INCISION 1024 an stop data 1026 An Stop Electronically s igned by Lucero Hayes on July 25, 2018 10:35 A M Name Total midazolam 1mg/mL 1.5 mg fentaNYL (SUBLIMAZE) injection 75 mcg dexamethasone 4mg/mL 4 mg ondansetron 2mg/mL 4 mg lactated ringers infusion 0 mL Agents Name NO HELIOX O2 N2O Air Exp Sevoflurane Exp Isoflurane Exp Desflurane Exp N2O O2 Delivery Device Ins Sevoflurane Ins Isoflurane Ins Desflurane O2 Auxiliary Blood No blood administrations on file. Lines, Drains, and Airways Type Details Placement Removal Incision/Surgical Site 04/27/17; 1141; Left; 04/27/17 1141 by Buttocks Jarred Warner, MODESTA Peripheral IV 07/18/18; 0757; 20 G; 07/18/18 0757 by Left; Hand; Nicolle Keen RN Chlorhexidine; Tolerated well Incision/Surgical Site 07/18/18; 0812; Right; 07/18/18 0812 by Eye Siria Reyes RN Incision/Surgical Site 07/25/18; 1017; Left; 07/25/18 1017 by Eye Lucero Armenta RN Peripheral IV 07/25/18; 0932; 22 G; 07/25/18 0932 by 07/25/18 1118 by Left; Hand; Kylah Ness RN Johnson, Emerald plasencia RN Chlorhexidine; None; Tolerated well documented in this encounter Social History Tobacco Use Types Packs/Day Years Used Date Smoking Tobacco: Never Smokeless Tobacco: Never Alcohol Use Standard Drinks/Week Comments Yes 0 (1 standard drink = 0.6 oz pure alcoho l) wine few times/wk Sex Assigned at Date Recorded Female 12/20/2018 4:10 PM CDT documented as of this encounter OR Notes Anesthesia Postprocedure Evaluation - Perez Jesus MD - 07/25/2018 11:13 AM CDT Anesthesia POST Procedure Evaluation Patient: Yamileth Sheikh Gender: female Age: [age] year old : 1945 Preoperative Diagnosis: Cataracts Procedure(s): Left Eye Phacoemulsification with Intraocular Lens Postop Comments: No value filed. Anesthesia Type: MAC Reportable Event: NO PAIN: Uncomplicated Sign Out status: Comfortable, Well controlled pain PONV: No PONV Sign Out status: No Nausea or Vomiting Neuro/Psych: Uneventful perioperative course Sign Out Status: Preoperative baseline; Age appropriate mentation Airway/Resp.: Uneventful perioperative course Sign Out Status: Non labored breathing, age appropriate RR; Resp. Status within EXPECTED Parameters CV: Uneventful perioperative course Sign Out status: Appropriate BP and perfusion indices; Appropriate HR/Rhythm Disposition: Sign Out in: PACU Disposition: Phase II; Home Recovery Course: Uneventful Follow-Up: Not required Last Anesthesia Record Vitals: FUNERAL SALES MANAGER VITALS 07/25/2018 0954 - 07/25/2018 1054 07/25/2018 Pulse: 53 SpO2: 98 % Resp Rate (set): 10 Last PACU/Preop Vitals: Vitals: 07/25/18 0836 07/25/18 1027 07/25/18 1104 BP: 132/85 110/67 110/65 Resp: 16 16 16 Temp: 36.8 ??C (98.2 ??F) 36.4 ??C (97.6 ??F) 36.3 ??C (97.4 ??F) SpO2: 97% 97% 98% Electronically Signed By: Perez Jesus MD, MD, July 25, 2018, 11:13 AM Anesthesia Preprocedure Evaluation - Perez Jesus MD - 07/25/2018 8:48 AM CDT )Anesthesia Pre-Procedure Evaluation Patient: Yamileth Sheikh Gender: female Age: [age] year old : 1945 Preoperative Diagnosis: Cataracts Procedure(s): Left Eye Phacoemulsification with Intraocular Lens Past Medical History: Diagnosis Date ??? Benign [...] microwaved. Dr Baer ENT ??? uteroscopy 05/04/2018 Anesthesia Evaluation . Pt has had prior anesthetic. Type: General History of anesthetic complications - PONV and motion sickness ROS/MED HX ENT/Pulmonary: Comment: Deviated nasal septum (-) tobacco use, asthma and COPD Neurologic: Comment: Benign head tremor (-) CVA, TIA and Neuropathy Cardiovascular: (+) hypertension----. : . . . :. dysrhythmias (paroxysmal) a-fib, . (-) CAD, irregular heartbeat/palpitations and stent METS/Exercise Tolerance: Hematologic: (-) anemia Musculoskeletal: Comment: Osteopenia (+) arthritis, , , - GI/Hepatic: (-) GERD and liver disease Renal/Genitourinary: (-) renal disease Endo: (-) Type I DM, Type II DM and thyroid disease Psychiatric: Infectious Disease: - neg infectious disease ROS Malignancy: Other: PHYSICAL EXAM: Mental Status/Neuro: Airway: Mallampati: II Mouth/Opening: Full Neck ROM: Full Respiratory: Auscultation: CTAB Resp. Rate: Normal Resp. Effort: Normal CV: Rhythm: Regular Rate: Age appropriate Heart: Normal Sounds Comments: Lab Results Component Value Date WBC 7.0 08/16/2012 HGB 14.7 08/16/2012 HCT 43.4 08/16/2012 PLT 191 08/16/2012 CRP 9.3 03/25/2018 NA 138 03/25/2018 POTASSIUM 4.0 03/25/2018 CHLORIDE 105 03/25/2018 CO2 26 03/25/2018 BUN 12 03/25/2018 CR 0.87 03/25/2018 GLC 94 03/25/2018 ASHLYN 9.1 03/25/2018 PHOS 4.8 (H) 01/01/2014 MAG 2.0 01/01/2014 ALBUMIN 3.6 07/22/2016 PROTTOTAL 6.8 07/22/2016 ALT 21 07/22/2016 AST 16 07/22/2016 ALKPHOS 92 07/22/2016 BILITOTAL 0.7 07/22/2016 TSH 1.32 01/07/2015 Preop Vitals BP Readings from Last 3 Encounters: 07/25/18 132/85 07/18/18 112/67 07/18/18 112/67 Pulse Readings from Last 3 Encounters: 07/18/18 60 07/07/18 66 07/07/18 66 Resp Readings from Last 3 Encounters: 07/25/18 16 07/18/18 16 07/18/18 16 SpO2 Readings from Last 3 Encounters: 07/25/18 97% 07/18/18 96% 07/18/18 96% Temp Readings from Last 1 Encounters: 07/25/18 36.8 ??C (98.2 ??F) (Oral) Ht Readings from Last 1 Encounters: 07/25/18 1.689 m (5' 6.5) Wt Readings from Last 1 Encounters: 07/25/18 68.5 kg (151 lb 1.8 oz) Estimated body mass index is 24.02 kg/(m^2) as calculated from the following: Height as of this encounter: 1.689 m (5' 6.5). Weight as of this encounter: 68.5 kg (151 lb 1.8 oz). LDA: Peripheral IV 07/18/18 Left Hand (Active) Number of days:7 Assessment: ASA SCORE: 2 NPO Status: > 6 hours since completed Solid Foods Documentation: H&P complete; Preop Testing complete; Consents complete Proceeding: Proceed without further delay Tobacco Use: NO Active use of Tobacco/UNKNOWN Tobacco use status Plan: Anes. Type: MAC Pre-Induction: Midazolam IV Induction: Not applicable Airway: Rincon Airway Access/Monitoring: PIV Maintenance: N/a Emergence: N/a Logistics: Same Day Surgery Postop Pain/Sedation Strategy: Standard-Options: Opioids PRN PONV Management: Adult Risk Factors: Female, H/o PONV or Motion Sickness, Non-Smoker, Postop Opioids CONSENT: Direct conversation Plan and risks discussed with: Patient Blood Products: Consent Deferred (Minimal Blood Loss) Everardo Dorsey MD documented in this encounter Miscellaneous Notes Anesthesia Care Transfer Note - Lucero Hayes APRN CRNA - 07/25/2018 10:36 AM CDT Patient: Yamileth Sheikh Procedure(s): Left Eye Phacoemulsification with Intraocular Lens Diagnosis: Cataracts Diagnosis Additional Information: No value filed. Anesthesia Type: No value filed. Note: Airway :Room Air Patient transferred to:Phase II Handoff Report: Identifed the Patient, Identified the Reponsible Provider, Reviewed the pertinent medical history, Discussed the surgical course, Reviewed Intra-OP anesthesia mangement and issues during anesthesia, Set expectations for post-procedure period and Allowed opportunity for questions and acknowledgement of understanding Vitals: (Last set prior to Anesthesia Care Transfer) PATEL VITALS 07/25/2018 0954 - 07/25/2018 1036 07/25/2018 Pulse: 53 SpO2: 98 % Resp Rate (set): 10 Electronically Signed By: Lucero Hayes APRN CRNA July 25, 2018 10:36 AM documented in this encounter Plan of Treatment Upcoming Encounters Date Type Specialty Care Team Description 09/10/2022 Office Visit Internal Medicine Margot Branham MD [address] [id number] (Wo rk) documented as of this encounter Visit Diagnoses Not on filedocumented in this encounter Administered Medications Inactive Administered Medications - up to 3 most recent administrations Medication Order MAR Action Action Date Dose Rate Site dexamethasone (DECADRON) injection Given 07/25/2018 10:07 AM CDT 4 mg Intravenous, PRN, Administer over 1 Minutes, Starting on Wed07/25/18 at 1007, Anesthesia Intra-op fentaNYL (PF) (SUBLIMAZE) injection Given 07/25/2018 10:12 AM CDT 25 mcg Intravenous, PRN, moderate to severe pain, Administer over 3-5 Minutes, Starting on Wed07/25/18 at 1005, Anesthesia Intra-op Given 07/25/2018 10:05 AM CDT 50 mcg midazolam (VERSED) injection Given 07/25/2018 10:08 AM CDT 0.5 mg Intravenous, Administer over 2 Minutes, PRN, anxiety, Starting on Wed07/25/18 at 1005, Anesthesia Intra-op Given 07/25/2018 10:05 AM CDT 1 mg ondansetron (ZOFRAN) injection Given 07/25/2018 10:07 AM CDT 4 mg Intravenous, PRN, nausea, vomiting, Administer over 2-5 Minutes, Starting on Wed07/25/18 at 1007, Anesthesia Intra-op documented in this encounter Additional Health Concerns Assessment Noted Time PHQ-9 Depression Total Score: 1 03/30/2018 7:10 AM CDT documented as of this encounter Care Teams Senior Software Tester Relationship Specialty Start Date End Date Lisseth Vang MD PCP - General 04/13/16 11/14/[address] [place], [place] [address] Carlota Landeros MD MD Urology 04/10/[address] [place] [address] Lisseth Vang MD PCP Family Practice 03/30/16 11/14/[address] [place] [address] Michelle Montana, MODESTA Registered Nurse Urology 05/07/17 Anh Costa APRN WATER TREATMENT PLANT MECHANIC Nurse Practitioner Nurse Practitioner 10/07 Martinez Galicia MD MD Ophthalmology 04/18/18 [address] [place] [address] documented as of this encounter
--- OUTSIDE RECORDS SUMMARY | 2022-07-30 19:26 | XMS_ITS | Encounter Summary ---
:1945 Author Organization [facility] Address [address] [place] [address]. [place] [address] Care Team Providers Name Role Phone Lisseth Vang MD Primary Care Provider Carlota Landeros MD Unavailable Lisseth Vang MD Unavailable Michelle Montana RN Unavailable Anh Costa APRN PIT MANAGER Unavailable Unavailable Martinez Galicia MD Unavailable Reason for Visit Reason Onset Date Comments Previsit 05/31/2018 Encounter Details Date Type Department Care Team Description 05/31/2018 PRE VISIT [facility] Ear Nose and Hsia, Kendra Shay, Previsit Throat [address] [place] [address] [address] [place] [address] [place], [place] [phone] Social History Tobacco Use Types Packs/Day Years Used Date Smoking Tobacco: Never Smokeless Tobacco: Never Alcohol Use Standard Drinks/Week Comments Yes 0 (1 standard drink = 0.6 oz pure alcoho l) wine few times/wk Sex Assigned at Date Recorded Female 12/20/2018 4:10 PM CDT documented as of this encounter Miscellaneous Notes Telephone Encounter - Bertha Ferrell - 05/20/2018 1:29 PM CDT FUTURE VISIT INFORMATION FUTURE VISIT INFORMATION: ?? Date: 05/31/2018 ?? Time: 1:00 ?? Location: [facility] REFERRAL INFORMATION: ?? Referring provider: SELF ?? Referring providers clinic: N/A ?? Reason for visit/diagnosis WIDEN NASAL PASSAGE BI RECORDS REQUESTED FROM: Clinic name Comments Records Status Imaging Status [facility] VISIT: 04/22/2018 INTERNAL N/A [facility] CARDIO DISEASE PREVENTION OFFICE VISIT: 03/25/2018 INTERNAL N/A ENT OFFICE VISIT: 01/03/2018, 03/14/2015 INTERNAL N/A PCC OFFICE VISIT: 04/13/2016, 01/10/2016 INTERNAL N/A RECORDS STATUS documented in this encounter Plan of Treatment Upcoming Encounters Date Type Specialty Care Team Description 09/10/2022 Office Visit Internal Medicine Margot Branham MD [address] [place] [phone] (Wo rk) documented as of this encounter Visit Diagnoses Not on filedocumented in this encounter Additional Health Concerns Assessment Noted Time PHQ-9 Depression Total Score: 1 03/30/2018 7:10 AM CDT documented as of this encounter Care Teams Well Flow Operator Relationship Specialty Start Date End Date Lisseth Vang MD PCP - General 04/13/16 11/14/[address] [place], [place] [phone] Carlota Landeros MD MD Urology 04/10/[address] [place], [place] [address] Lisseth Vang MD PCP Family Practice 03/30/16 11/14/[address] [place], [place] [address] Michelle Montana, MODESTA Registered Nurse Urology 05/07/17 Anh Costa APRN PIT MANAGER Nurse Practitioner Nurse Practitioner 10/07 Martinez Galicia MD MD Ophthalmology 04/18/18 [address] [place] [address] documented as of this encounter
--- OUTSIDE RECORDS SUMMARY | 2022-07-30 19:26 | XMS_ITS | Encounter Summary ---
:1945 Author Organization [facility] Address [address] [place] [address]. [place] [address] Care Team Providers Name Role Phone Lisseth Vang MD Primary Care Provider Carlota Landeros MD Unavailable Lisseth Vang MD Unavailable Michelle Montana RN Unavailable Anh Costa APRN COIL CONNECTOR Unavailable Unavailable Martinez Galicia MD Unavailable Encounter Details Date Type Department Care Team Description 07/18/2018 Anesthesia Event M [facility] Surgery and Swati Peñaloza MD [address] [place] [id number] Procedure Center Annie Lal MD [id number] [place] [address] [address] [place] [address] Anesthesia Record Procedure Summary Procedure Name Responsible Anesthesia Start Anesthesia Stop Anesthesiologist Time Time Right Eye Helder Peñaloza 07/18/18 0822 07/18/18 084 9 Phacoemulsification with MD Cindy Intraocular Lens (Right: Eye) Events Date Time Event Comment 07/18/2018 0822 An Start 0825 An Start Data 0833 AN INCISION 0844 an stop data 0849 An Stop Electronically s igned by Levy Espinoza on July 18, 2018 8:49 AM Name Total midazolam 1mg/mL 1 mg fentaNYL (SUBLIMAZE) injection 50 mcg dexamethasone 4mg/mL 4 mg ondansetron 2mg/mL 4 mg lactated ringers infusion 200 mL Agents Name NO HELIOX O2 N2O Air Exp Sevoflurane Exp Isoflurane Exp Desflurane Exp N2O O2 Delivery Device Ins Sevoflurane Ins Isoflurane Ins Desflurane O2 Auxiliary Blood No blood administrations on file. Lines, Drains, and Airways Type Details Placement Removal Incision/Surgical Site 04/27/17; 1141; Left; 04/27/17 1141 by Sarah Roberts RN Peripheral IV 07/18/18; 0757; 20 G; Left; 07/18/18 0757 by Michela Cm; Chlorhexidine; MODESTA Valverde Tolerated well Incision/Surgical Site 07/18/18; 0812; Right; Eye 07/18/18 0812 by Siria Reyes RN documented in this encounter Social History Tobacco Use Types Packs/Day Years Used Date Smoking Tobacco: Never Smokeless Tobacco: Never Alcohol Use Standard Drinks/Week Comments Yes 0 (1 standard drink = 0.6 oz pure alcoho l) wine few times/wk Sex Assigned at Date Recorded Female 12/20/2018 4:10 PM CDT documented as of this encounter OR Notes Anesthesia Postprocedure Evaluation - Helder Peñaloza MD - 07/18/2018 12:56 PM CDT Patient: Yamileth Sheikh Procedure(s): Right Eye Phacoemulsification with Intraocular Lens - Wound Class: I-Clean Diagnosis:Cataracts Diagnosis Additional Information: No value filed. Anesthesia Type: No value filed. Note: Anesthesia Post Evaluation Patient location during evaluation: Phase 2 Patient participation: Able to fully participate in evaluation Level of consciousness: awake and alert Pain management: adequate Airway patency: patent Cardiovascular status: acceptable Respiratory status: acceptable Hydration status: acceptable PONV: none Anesthetic complications: None Last vitals: Vitals: 07/18/18 0753 07/18/18 0850 07/18/18 0900 BP: 133/66 126/74 112/67 Resp: 16 16 16 Temp: 36.6 ??C (97.8 ??F) 36.5 ??C (97.7 ??F) SpO2: 97% 96% 96% Electronically Signed By: Helder Peñaloza MD July 18, 2018 12:56 PM Anesthesia Preprocedure Evaluation - Helder Peñaloza MD - 07/18/2018 8:10 AM CDT Anesthesia Evaluation . Pt has had prior anesthetic. Type: General History of anesthetic complications (PONV with propofol) - PONV and motion sickness ROS/MED HX ENT/Pulmonary: (-) tobacco use, asthma and COPD Neurologic: (-) CVA, TIA and Neuropathy Cardiovascular: (+) hypertension----. : . . . :. dysrhythmias (paroxysmal) a-fib, . (-) CAD, irregular heartbeat/palpitations and stent METS/Exercise Tolerance: Hematologic: (-) anemia Musculoskeletal: GI/Hepatic: (-) GERD and liver disease Renal/Genitourinary: (-) renal disease Endo: (-) Type I DM, Type II DM and thyroid disease Psychiatric: Infectious Disease: - neg infectious disease ROS Malignancy: Other: Physical Exam Normal systems: cardiovascular, pulmonary and dental Airway Mallampati: II TM distance: >3 FB Neck ROM: full Dental Cardiovascular Rhythm and rate: regular and normal Pulmonary breath sounds clear to auscultation Anesthesia Plan History & Physical Review History and physical reviewed and following examination; no interval change. ASA Status: 2 . Plan for MAC (with GA backup) with Intravenous induction. Maintenance will be TIVA. PONV prophylaxis: Ondansetron (or other 5HT-3), Dexamethasone or Solumedrol and Scopolamine patch Postoperative Care Postoperative pain management: Oral pain medications. Consents Anesthetic plan, risks, benefits and alternatives discussed with: Patient (Including possibility of intraoperative awareness or recall.).. Helder Peñaloza MD Staff Anesthesiologist . documented in this encounter Miscellaneous Notes Anesthesia Care Transfer Note - Levy Espinoza APRN CRNA - 07/18/2018 8:47 AM CDT Patient: Yamileth Sheikh Procedure(s): Right Eye Phacoemulsification with Intraocular Lens - Wound Class: I-Clean Diagnosis: Cataracts Diagnosis Additional Information: No value filed. Anesthesia Type: No value filed. Note: Airway :Room Air Patient transferred to:Phase II Comments: Arrive PACU, Stable, Airway Intact 118/71, 59,14,97% All questions answered. Handoff Report: Identifed the Patient, Identified the Reponsible Provider, Reviewed the pertinent medical history, Discussed the surgical course, Reviewed Intra-OP anesthesia mangement and issues during anesthesia, Set expectations for post-procedure period and Allowed opportunity for questions and acknowledgement of understanding Vitals: (Last set prior to Anesthesia Care Transfer) APPAREL SALES LEADER VITALS 07/18/2018 0814 - 07/18/2018 0847 07/18/2018 Pulse: 57 Ht Rate: 56 SpO2: 100 % Resp Rate (set): 10 Electronically Signed By: Levy Espinoza APRN CRNA July 18, 2018 8:47 AM documented in this encounter Plan of Treatment Upcoming Encounters Date Type Specialty Care Team Description 09/10/2022 Office Visit Internal Medicine Logeais, MD Margot [address] [place] [id number] (Wo rk) documented as of this encounter Visit Diagnoses Not on filedocumented in this encounter Administered Medications Inactive Administered Medications - up to 3 most recent administrations Medication Order MAR Action Action Date Dose Rate Site dexamethasone (DECADRON) injection Given 07/18/2018 8:28 AM CDT 4 mg Intravenous, PRN, Administer over 1 Minutes, Starting on Wed07/18/18 at 0828, Anesthesia Intra-op fentaNYL (PF) (SUBLIMAZE) injection Given 07/18/2018 8:28 AM CDT 50 mcg Intravenous, PRN, moderate to severe pain, Administer over 3-5 Minutes, Starting on Wed07/18/18 at 0828, Anesthesia Intra-op midazolam (VERSED) injection Given 07/18/2018 8:28 AM CDT 1 mg Intravenous, Administer over 2 Minutes, PRN, anxiety, Starting on Wed07/18/18 at 0828, Anesthesia Intra-op ondansetron (ZOFRAN) injection Given 07/18/2018 8:28 AM CDT 4 mg Intravenous, PRN, nausea, vomiting, Administer over 2-5 Minutes, Starting on Wed07/18/18 at 0828, Anesthesia Intra-op documented in this encounter Additional Health Concerns Assessment Noted Time PHQ-9 Depression Total Score: 1 03/30/2018 7:10 AM CDT documented as of this encounter Care Teams Tree Faller Relationship Specialty Start Date End Date Lisseth Vang MD PCP - General 04/13/16 11/14/[address] [place], [place] [address] Carlota Landeros MD MD Urology 04/10/[address] [place], [place] [address] Lisseth Vang MD PCP Family Practice 03/30/16 11/14/[address] [place], [place] [address] Michelle Montana, MODESTA Registered Nurse Urology 05/07/17 Anh Costa APRN COIL CONNECTOR Nurse Practitioner Nurse Practitioner 10/07 Martinez Galicia MD MD Ophthalmology 04/18/[address] [place] [id number] documented as of this encounter
--- OUTSIDE RECORDS SUMMARY | 2022-07-30 19:26 | XMS_ITS | Encounter Summary ---
:1945 Author Organization [facility] Address [address] [place] [address]. [place] [address] Care Team Providers Name Role Phone Lisseth Vang MD Primary Care Provider Carlota Acuña MD Unavailable Lisseth Vang MD Unavailable Michelle Montana RN Unavailable Anh Costa APRN VISCOSITY INSPECTOR Unavailable Unavailable Martinez Galicia MD Unavailable Reason for Visit Reason Comments Hyperlipidemia Hypertension Tinnitus Encounter Details Date Type Department Care Team Description 07/07/2018 Office Visit [facility] for Anh Costa Hyperli pidemia LDL goal Cardiovascular Disease CLAUDIA Marsh VISCOSITY INSPECTOR <10 0 (Primary Dx) Prevention [address] [place] [phone] Social History Tobacco Use Types Packs/Day [...] Time Taken Comments Blood Pressure 110/66 07/07/2018 10:50 AM CDT Pulse 66 07/07/2018 10:50 AM CDT Temperature - - Respiratory Rate - - Oxygen Saturation 97% 07/07/2018 10:50 AM CDT Inhaled Oxygen Concentration - - Weight 71.8 kg (158 lb 4.8 oz) 07/07/2018 10:50 AM CDT Height 168.9 cm (5' 6.5) 07/07/2018 10:50 AM CDT Body Mass Index 25.17 07/07/2018 10:50 AM CDT documented in this encounter Patient Instructions Patient InstructionsAnh Costa APRN CNP - 07/07/2018 10:00 AM CDT Continue with your great exercise and nutrition pattern! Continue current medication. Return for recheck of cholesterol in the next few weeks (fasting 10-12 hours depending on how much you eat- water ok no food) Return in one year for follow up. documented in this encounter Progress Notes Anh Costa APRN CNP - 07/07/2018 10:00 AM CDT PROBLEM LIST Patient Active Problem List Diagnosis [...] ??? Elevated glucose ??? Hyperlipidemia HPI: Yamileth Ramona Sheikh is a 72 year old year old female with a history of arthritis with right hip replacement, bladder stimulator implant (generator replaced 2016) hyperlipidemia and hypertension. She wastaking perindopril which was DC'd because of dry cough and replaced with Valsartan 160 mg per day. Her cough has resolved and her home blood pressures were well controlled but valsartan was recalled because of manufacture problems so valsartan was replaced with irbesartan which she is tolerating well.She is taking a low dose of atorvastatin 10 mg per day without reported side effects. She is concerned about mention of tinnitus in the literature with statins. She has been counting calories limiting to about 1,000 per day and has been slowly losing weight. She has lost 22 pounds since last November. No reports of chest pain or shortness of breath. We discussed aspirin use and tinnitus and new research study with lack of evidence for primary prevention. Withher family hx of blood clots she wishes to continue her aspirin. PAST MEDICAL HISTORY: Past Medical History: Diagnosis [...] Vitamin D deficiency CURRENT MEDICATIONS: Current Outpatient Prescriptions Medication Sig Dispense Refill ??? amoxicillin (AMOXIL) 500 MG capsule Take 2 capsules by mouth as needed 1 hour before dental procedures ??? aspirin 81 MG tablet Take 81 mg by mouth daily ??? atorvastatin (LIPITOR) 10 MG tablet Take 1 tablet (10 mg) by mouth daily 90 tablet 3 ??? azelastine (ASTELIN) 0.1 % spray [place] 2 sprays into both nostrils 2 times [...] three times weekly. 30 g 12 ??? fish oil-omega-3 fatty acids (OMEGA 3) 1000 MG capsule Take 1 capsule by mouth 2 times daily ??? fluticasone (FLONASE) 50 MCG/ACT spray [place] 2 sprays into both nostrils daily 1 [...] 3 ??? ipratropium (ATROVENT) 0.06 % spray [place] 2 sprays into both nostrils 4 times [...] tablet by mouth 2 times daily ??? [DISCONTINUED] valACYclovir (VALTREX) 1000 mg tablet Take 1 tablet (1,000 mg) by mouth 3 times daily as needed 20 tablet 1 ??? estradiol (ESTRING) [address] RING VAGINALLY EVERY 3 MONTHS. 1 each 3 ??? valACYclovir (VALTREX) 1000 mg tablet [...] ??? Myocardial Infarction Maternal Grandfather 82 of [place] ??? Cardiovascular Paternal Grandmother age 65 of heart problems ??? Pneumonia Paternal Grandfather age 70 after flu ??? No Known Problems Son ??? Macular Degeneration No family hx of SOCIAL HISTORY: Social History Social History ??? Marital status: Single Spouse name: N/A ??? Number of children: N/A ??? Years of education: N/A Occupational History ??? 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 [...] 1 son - - still working at [employer] - citizen of [place] as a second language - lives in [...] Neuro: Negative Endocrinology: Negative Musculoskeletal: Negative EXAM: BP 110/66 (BP Location: Left arm, Patient Position: Sitting) Pulse 66 Ht 1.689 m (5' 6.5) Wt 71.8 kg (158 lb 4.8 oz) SpO2 97% BMI 25.17 kg/m2 In general, the patient is a pleasant [...] RESULTS: Lab Results Component Value Date CHOL 243 07/22/2016 Lab Results Component Value Date HDL 64 07/22/2016 Lab Results Component Value Date LDL 141 07/22/2016 Lab Results Component Value Date TRIG 193 07/22/2016 Lab Results Component Value Date CHOLHDLRATIO 3.4 [...] Cardiovascular: No chest pain or shortness of breath. She is active walking and working out at a community center. No hx of CV event. Blood pressure: Well controlled with irbesartan 150 mg per day. We checked her home device in clinictoday with almost identical readings. Clinic BP was 110/66. Creatinine was 0.87 in March with GFR 64. Lipids: She has started atorvastatin 10 mg per day by Dr. Villanueva in April. Will recheck lipids with return fasting lab visit. She is concerned about tinnitus reports with atorvastatin which is not common. Will check to see if there are other statins with less tinnitus or if this is a class side effect. documented in this encounter Plan of Treatment Upcoming Encounters Date Type Specialty Care Team Description 09/10/2022 Office Visit Internal Medicine LogMargot sadler MD [address] [address] (Wo rk) documented as of this encounter Results Lipid panel reflex to direct LDL Fasting (07/22/2018 9:22 AM CDT) [facility] Method Time Signature Cholesterol 127 <200 mg/dL 07/22/2018 [facility] 9:48 AM CDT [facility] Triglycerides 84 <150 mg/dL 07/22/2018 [facility] 9:48 AM CDT [facility] HDL Cholesterol 62 >49 mg/dL 07/22/2018 [facility] 9:48 AM CDT [facility] LDL Cholesterol 48 <100 mg/dL 07/22/2018 [facility] Calculated 9:48 AM CDT [facility] Comment: Desirable: <100 mg/dl Non HDL Cholesterol 65 <130 mg/dL 07/22/2018 9:48 AM CDT [facility] Specimen Anatomical Collection Method Collection Time Receive d Time (Source) Location / / Volume Laterality Blood specimen 07/22/2018 9:22 AM 018 9:23 (specimen) CDT AM CDT Anh Costa APRN, CNP LAB - BLOOD ORDERABLES Performing Organization Address City/State/ZIP Code Phon e Number [address] [address] [facility] documented in this encounter Visit Diagnoses Diagnosis Hyperlipidemia LDL goal <100 - Primary Other and unspecified hyperlipidemia documented in this encounter Additional Health Concerns Assessment Noted Time PHQ-9 Depression Total Score: 1 03/30/2018 7:10 AM CDT documented as of this encounter Care Teams Director Orange Relationship Specialty Start Date End Date Lisseth Vang MD PCP - General 04/13/16 11/14/[address] [place] [address] Carlota Acuña MD MD Urology 04/10/[id number] [place], [place] [id number] Lisseth Vang MD PCP Family Practice 03/30/16 11/14/[address] [place] [address] Michelle Montana, MODESTA Registered Nurse Urology 05/07/17 Anh Costa APRN VISCOSITY INSPECTOR Nurse Practitioner Nurse Practitioner 10/07 Martinez Galicia MD MD Ophthalmology 04/18/[address] [place] [phone] documented as of this encounter
--- OUTSIDE RECORDS SUMMARY | 2022-07-30 19:27 | XMS_ITS | Encounter Summary ---
:1945 Author Organization [facility] Address [address] [place] [address]. [place] [address] Care Team Providers Name Role Phone Lisseth Vang MD Primary Care Provider Carlota Landeros MD Unavailable Lisseth Vang MD Unavailable Michelle Montana RN Unavailable Reason for Visit Reason Onset Date Comments Results 07/13/2017 Encounter Details Date Type Department Care Team Description 07/13/2017 Telephone [facility], [facility] [address] [phone] [place], [place] [phone] (Wo rk) Social History Tobacco Use Types Packs/Day Years Used Date Smoking Tobacco: Never Smokeless Tobacco: Never Alcohol Use Standard Drinks/Week Comments Yes 0 (1 standard drink = 0.6 oz pure alcoho l) wine few times/wk Sex Assigned at Date Recorded Female 12/20/2018 4:10 PM CDT documented as of this encounter Miscellaneous Notes Telephone Encounter - Shane Ryan MD - 07/13/2017 10:39 AM CDT Reviewed UC results. Changed to Nitrofurantoin documented in this encounter Plan of Treatment Upcoming Encounters Date Type Specialty Care Team Description 09/10/2022 Office Visit Internal Medicine Margot Branham MD [address] [phone] (Wo rk) documented as of this encounter Visit Diagnoses Diagnosis Dysuria - Primary documented in this encounter Care Teams Modern Dancer Relationship Specialty Start Date End Date Lisseth Vang MD PCP - General 04/13/16 11/14/[address] [place], [place] [address] Carlota Landeros MD MD Urology 04/10/[address] [place], [place] [address] Lisseth Vang MD PCP Family Practice 03/30/16 11/14/[address] [place], [place] [phone] Michelle Montana, MODESTA Registered Nurse Urology 05/07/17 documented as of this encounter
--- OUTSIDE RECORDS SUMMARY | 2022-07-30 19:27 | XMS_ITS | Encounter Summary ---
:1945 Author Organization [facility] Address [address] [place] [address]. [place] [address] Care Team Providers Name Role Phone Lisseth Vang MD Primary Care Provider Carlota Landeros MD Unavailable Lisseth Vang MD Unavailable Michelle Montana RN Unavailable Anh Costa APRN KNOT PICKER CLOTH Unavailable Unavailable Martinez Galicia MD Unavailable Sabino Romano DPM Unavailable Kyle Roberts MD Primary Care Provider Mehreen Johnston MD PhD Unavailable [phone] LogeaMargot man MD Unavailable Martinez Galicia MD Unavailable LogMargot sadler MD Unavailable LogMargot sadler MD Primary Care Provider Levy Hussein MD Unavailable Alonso Tejeda MD Unavailable Reason for Visit Reason Onset Date Comments Call Back 04/11/2018 Encounter Details Date Type Department Care Team Description 04/11/[address] [facility] Urology and Inst Carlota Landeros MD Call Back for Prostate and Urologic [id number] [place], [place] [phone] [place], [place] [phone] (Work) [address] Floor [place], [place] [phone] Social History Tobacco Use Types Packs/Day Years Used Date Smoking Tobacco: Never Smokeless Tobacco: Never Alcohol Use Standard Drinks/Week Comments Yes 0 (1 standard drink = 0.6 oz pure alcoho l) wine few times/wk Sex Assigned at Date Recorded Female 12/20/2018 4:10 PM CDT documented as of this encounter Miscellaneous Notes Telephone Encounter - Michelle Montana RN - 04/13/2018 10:47 AM CDT Left message for patient to call to discuss what's going on Michelle Montana RN Linux Systems Analyst Urology Telephone Encounter - Clayton Kapoor - 04/11/2018 3:56 PM CDT [facility] Phone Message May a detailed message be left on voicemail: no Reason for Call: Other: Pt called in to schedule an appt with Dr. Landeros. Pt was seen by Dr. Villanueva in cardiology here and he told her based on creatinine level results that she had some sort of kidney disease. Notes in the Pt's chart were not very clear. She would like a call back from someone to discuss what she should do; to see a kidney provider or f/u with Dr. Landeros. Please contact Pt to discuss. Action Taken: Message routed to: [facility] documented in this encounter Plan of Treatment Upcoming Encounters Date Type Specialty Care Team Description 09/10/2022 Office Visit Internal Medicine Margot Branham MD [address] [address] (Wo rk) documented as of this encounter Visit Diagnoses Not on filedocumented in this encounter Additional Health Concerns Assessment Noted Time PHQ-9 Depression Total Score: 1 03/30/2018 7:10 AM CDT documented as of this encounter Care Teams Vinegar Maker Relationship Specialty Start Date End Date Lsiseth Vang, PCP - General 04/13/16 11/14/[address] [place], [place] [address] Kyle Roberts MD PCP - General Family Practice 11/15/19 10/27/[address] [place], [place] [address] Margot Branham MD PCP - General Internal Medicine 10/28/[address] [place] [address] Carlota Landeros MD MD Urology 04/10/[address] [place], [place] [address] Lisseth Vang, JAMAR Family Practice 03/30/[address] [place], [place] [phone] Michelle Montana, MODESTA Registered Nurse Urology 05/07/17 Anh Costa APRN Nurse Practitioner Nurse Practitioner 10/07/17 Martinez Hernandez MD Ophthalmology 04/18/[address] [phone] Sabino Romano DPM MD Podiatry 08/11/18 [facility] [address] [phone] Mehreen Johnston MD Family Practice 11/15/[address] [place] [address] Margot Branham MD MD Internal Medicine 04/17/[address] [place] [phone] Martinez Galicia, Assigned Surgical 07/26/20 MD Provider [address] [place] [phone] Margot Branham MD Assigned PCP 09/15/[address] [place] [phone] Levy Hussein MD Assigned Surgical 03/23/21 06/14/[address] [place] [address] Provider [place], [place] [phone] Alonso Tejeda MD MD Internal Medicine 06/19/[address] [place] [phone] documented as of this encounter
--- OUTSIDE RECORDS SUMMARY | 2022-07-30 19:27 | XMS_ITS | Encounter Summary ---
:1945 Author Organization [facility] Address [address] [place] [address]. [place] [address] Care Team Providers Name Role Phone Lisseth Vang MD Primary Care Provider Carlota Landeros MD Unavailable Lisseth Vang MD Unavailable Michelle Montana RN Unavailable Anh Costa APRN MANAGER LIGHTING Unavailable Unavailable Encounter Details Date Type Department Care Team Description 03/25/2018 Orders Only [facility] Essential hypertension with goal blood pressure less than 140/90; [address] [place] [address] Hyperlipidemia LDL goal <100 ; 1st Floor Peripheral vascular disease (H); [place], [place] Vitamin D de ficiency; [address] Hypertensive heart disease w [facility] heart failure; [phone] Essential hyper tension; Hyperlipidemia, unspecified hyperlipidemia type; CARDIOVASCULAR SCREENING; LDL GOAL LESS THAN 130 Social History Tobacco Use Types Packs/Day Years [...] Office Visit Internal Medicine LogeaMargot man MD [address] [place] [phone] (Wo rk) documented as of this encounter Procedures Procedure Name Priority Date/Time Associated Diagnosis Comme nts ALBUMIN RANDOM URINE Routine 03/25/2018 7:09 Essential hyperte nsion Results for this QUANTITATIVE AM CDT procedure are i n the results section. LABORATORY Routine 03/25/2018 6:47 Essential hypert ension Results for this MISCELLANEOUS ORDER AM CDT Hyperlipidemia, proce dure are in unspecified the results hyperlipidemia t ype section. CARDIOVASCULAR SCREENING; LDL GOAL LESS THAN 130 [place] MISCELLANEOUS Routine 03/25/2018 6:47 Essential hypertens ion Results for this TEST AM CDT with goal blood procedure ar e in pressure less than the resul ts 140/90 section. VITAMIN D DEFICIENCY Routine 03/25/2018 6:46 Essential hyperte nsion Results for this SCREENING AM CDT with goal blood procedure ar e in pressure less than the resul ts 140/90 section. Hyperlipidemia LDL goal <100 Peripheral vascular disease (H) Vitamin D deficiency N TERMINAL PRO BNP Routine 03/25/2018 6:46 Essential hyp ertension Results for this OUTPATIENT AM CDT Hyperlipidemia, procedure ar e in unspecified the results hyperlipidemia t ype section. CARDIOVASCULAR SCREENING; LDL GOAL LESS THAN 130 CRP CARDIAC RISK Routine 03/25/2018 6:46 Essential hypertensio n Results for this AM CDT procedure are i n the results section. BASIC METABOLIC PANEL Routine 03/25/2018 6:46 Hypertensive hea rt Results for this AM CDT disease without heart proced ure are in failure the results section. documented in this encounter Results Albumin Random Urine Quantitative with Creat Ratio (03/25/2018 7:09 AM CDT) P athologist Signature Creatinine 180 mg/dL 03/25/2018 [facility] Urine 7:47 AM CDT [facility] Albumin Urine 9 mg/L 03/25/2018 [facility] mg/L 7:47 AM CDT [facility] Albumin Urine 5.14 0 - 25 03/25/2018 [facility] mg/g Cr mg/g Cr 7:47 AM CDT [facility] Specimen Anatomical Collection Method Collection Time Receive d Time (Source) Location / / Volume Laterality Urine specimen 03/25/2018 7:09 AM 018 7:14 (specimen) CDT AM CDT Anh Costa APRN MANAGER LIGHTING LAB - URINE ORDERABLES Performing Organization Address City/State/ZIP Code Phon e Number [address] [address] [facility] (ABNORMAL) [place] Miscellaneous Test (03/25/2018 6:47 AM CDT) P athologist Signature Result SEE NOTE 03/28/2018 [facility] [place] M[place]DA) 1:41 PM CDT [facility] Comment: (Note) Test name ?R esult Flag ??Units ??RefIntvl LDL Particle Number, NMR ?1764 H ? nmol/L <=1135 ? REFERENCE INTERVAL: LDL Particle Number, NMR Low............... [...] mg/dL(20th percentile) and 160 mg/dL (80th percentile). Small LDL Particle Number, NMR ? 584 ? nmol/L <=634 ? INTERPRETIVE INFORMATION: Small LDL Part icle Number, NMR Percentiles in Reference Population: 25th ? 50th ? 75th 220 ?634 ?949 Large VLDL Particle Number, NMR ?<1.5 ? nmol/L <=2.7 ? INTERPRETIVE INFORMATION: Large VLDL Par ticle Number, NMR Percentiles in Reference Population: 25th ? 50th ? 75th 0.9 ?2.7 ?7.0 HDL Particle Number, NMR ?40.7 ? umol/L >=33.0 ? INTERPRETIVE INFORMATION: HDL Particle N umber, NMR Percentiles in Reference Population: 25th ? 50th ? 75th 29.7 ? 33.0 ? 36.8 Large HDL Particle Number, NMR ? 8.2 ? umol/L >=4.2 ? INTERPRETIVE INFORMATION: Large HDL Part icle Number, NMR Percentiles in Reference Population: 25th ? 50th ? 75th 2.0 ?4.2 ?7.3 LDL Particle Size, NMR ?21.5 ? nm >=20.7 ? INTERPRETIVE INFORMATION: LDL Particle S ize, NMR Percentiles in Reference Population: 25th ? 50th ? 75th 19.6 ? 20.7 ? 22.5 VLDL Particle Size, NMR ?47.5 H ? nm <=46.7 ? INTERPRETIVE INFORMATION: VLDL Particle Size, NMR Percentiles in Reference Population: 25th ? 50th ? 75th 44.3 ? 46.7 ? 50.2 HDL Particle Size, NMR ? 9.2 ? nm >=8.9 ? INTERPRETIVE INFORMATION: HDL Particle S ize, NMR Percentiles in Reference Population: 25th ? 50th ? 75th 8.6 ?8.9 ?9.3 Total Cholesterol ? 2 45 H ?mg/dL <=199 Triglycerides ? 142 ?mg/dL 30-149 HDL Cholesterol ?70 H ?mg/dL 40-59 LDL Cholesterol, Calc ? 147 H ?mg/dL <=129 ? EER LipoFit by NMR ?S ee Note ? Access [employer] Enhanced Report using either link below: -Direct access: [email or web address] -Enter Username, Password: [email or web address] Username: [email or web address] Password: [email or web address] INTERPRETIVE INFORMATION: LipoFit by [facility] See Compliance Statement B: GTx/ CS Performed by [employer], [address], [facility] [place] [address] [email or web address], Valeriano Rich MD, Lab. Director Test Name LIPOFIT BY [facility] 03/25/2018 6:34 AM CDT UN [facility] Send Outs Misc Test NMRLIPFIT 03/25/2018 6:34 AM C DT [facility] Code [facility] Send Outs Misc Test SERUM 03/25/2018 6:34 AM C DT [facility] Specimen [facility] Specimen Anatomical Collection Method Collection Time Receive d Time (Source) Location / / Volume Laterality 03/25/2018 6:47 AM 8 6:48 CDT AM CDT Anh Costa APRN, CNP LAB - BLOOD ORDERABLES Performing Organization Address City/[facility]/ZIP Code Phon e Number [place] [phone] [facility] NMR Lipo Profile: Laboratory Miscellaneous Order (03/25/2018 6:47 AM CDT) Component Value Ref Test Analysis Performed At Patholo gist Range Method Time Signature Miscellaneous Specimen Received, Reordered and sent to Performing laboratory - Report to follow upon 03/25/2018 [facility] Test completion. 8:14 AM CDT [facility] Specimen Anatomical Collection Method Collection Time Receive d Time (Source) Location / / Volume Laterality Blood specimen 03/25/2018 6:47 AM 018 6:48 (specimen) CDT AM CDT Anh Costa APRN, CNP LAB - BLOOD ORDERABLES Performing Organization Address City/[facility]/ZIP Code Phon e Number [place] [phone] [facility] (ABNORMAL) N terminal pro BNP outpatient (03/25/2018 6:46 AM CDT) P athologist Signature N-Terminal Pro 161 (H) 0 - 125 03/25/2018 [facility] Bnp pg/mL 7:12 AM CDT [facility] Comment: Reference range shown and results flagge d as abnormal are for the outpatient, non acute settings. Establishing a basel ine value for each individual patient is useful for follow-up. Suggested inpatient cut points for confi rming diagnosis of CHF in an acute setting are: >450 pg/mL (age 18 to less than 50) >900 pg/mL (age 50 to less than 75) >1800 pg/mL (75 yrs and older) An inpatient or emergency department NT- proPBNP <300 pg/mL effectively rules out acute CHF, with 99% negative predict jennifer value. Specimen Anatomical Collection Method Collection Time Receive d Time (Source) Location / / Volume Laterality Blood specimen 03/25/2018 6:46 AM 018 6:47 (specimen) CDT AM CDT Anh Costa APRN, CNP LAB - BLOOD ORDERABLES Performing Organization Address City/[facility]/ZIP [place] [address] [facility] CRP cardiac risk (03/25/2018 6:46 AM CDT) P athologist Signature CRP Cardiac 9.3 mg/L 03/25/2018 [facility] Risk 11:28 AM CDT [facility] Comment: Reference Values: Low Risk: ? <1.0 mg/L Average Risk: ? 1.0-3.0 mg/L High Risk: ?>3.0 mg/L Acute Inflammation: >8.0 mg/L Specimen Anatomical Collection Method Collection Time Receive d Time (Source) Location / / Volume Laterality Blood specimen 03/25/2018 6:46 AM 018 6:47 (specimen) CDT AM CDT Anh Costa APRN, CNP LAB - BLOOD ORDERABLES Performing Organization Address City/[facility]/ZIP Code Phon e Number [facility] [address] [place], [place] [phone] [place] [address] Basic metabolic panel (03/25/2018 6:46 AM CDT) P athologist Signature Sodium 138 133 - 144 03/25/2018 [facility] mmol/L 7:12 AM CDT [facility] Potassium 4.0 3.4 - 5.3 03/25/2018 [facility] mmol/L 7:12 AM T [facility] Chloride 105 94 - 109 03/25/2018 [facility] mmol/L 7:12 AM T [facility] Carbon Dioxide 26 20 - 32 03/25/2018 [facility] mmol/L 7:12 AM T [facility] Anion Gap 7 3 - 14 03/25/2018 [facility] mmol/L 7:12 AM T [facility] Glucose 94 70 - 99 03/25/2018 [facility] mg/dL 7:12 AM T [facility] Urea Nitrogen 12 7 - 30 03/25/2018 [facility] mg/dL 7:12 AM T [facility] Creatinine 0.87 0.52 - 03/25/2018 [facility] 1.04 mg/dL 7:12 AM [facility] GFR Estimate 64 >60 03/25/2018 [facility] mL/min/1.7 7:12 AM T [address] Comment: Non GFR Calc GFR Estimate If 77 >60 mL/min/1.7m2 03/25/2018 7:12 A M [place] [facility] Black [facility] Comment: GFR Calc Calcium 9.1 8.5 - 10.1 mg/dL 03/25/2018 7:12 AM T [facility] Specimen Anatomical Collection Method Collection Time Receive d Time (Source) Location / / Volume Laterality Blood specimen 03/25/2018 6:46 AM 018 6:47 (specimen) CDT AM CDT Anh Costa APRN MANAGER LIGHTING LAB - BLOOD ORDERABLES Performing Organization Address City/State/ZIP Code Phon e Number [address] [address] [facility] Vitamin D Deficiency Screening (03/25/2018 6:46 AM CDT) P athologist Signature Vitamin D 47 20 - 75 03/25/2018 [facility] Deficiency ug/L 1:16 PM CDT [place] [facility] Comment: Season, race, dietary intake, and treatm ent affect the concentration of 01-paukzip-Nnzqflr D. Values may decreas e during winter months and increase during summer months. Values 20-29 ug/L may indicate Vitamin D insufficiency and values <20 ug/L may indicate Vitamin D deficiency. Vitamin D determination is routinely per formed by an immunoassay specific for 25 hydroxyvitamin D3. ??If an individual is on vitamin D2 (ergocalciferol) supplementation, please specify 25 OH vi tamin D2 and D3 level determination by LCMSMS test VITD23. Specimen Anatomical Collection Method Collection Time Receive d Time (Source) Location / / Volume Laterality Blood specimen 03/25/2018 6:46 AM 018 6:47 (specimen) CDT AM CDT Anh Costa APRN, CNP LAB - BLOOD ORDERABLES Performing Organization Address City/State/ZIP Code Phon e Number [facility] [address] [place], [place] [phone] [place] [address] documented in this encounter Visit Diagnoses Diagnosis Essential hypertension with goal blood p ressure less than 140/90 Hyperlipidemia, unspecified hyperlipidem ia type Peripheral vascular disease (H) Peripheral vascular disease, unspecified Vitamin D deficiency Unspecified vitamin D deficiency Hypertensive heart disease without heart failure Unspecified hypertensive heart disease w ithout heart failure Essential hypertension Unspecified essential hypertension CARDIOVASCULAR SCREENING; LDL GOAL LESS THAN 130 documented in this encounter Care Teams County Agent Relationship Specialty Start Date End Date Lisseth Vang MD PCP - General 04/13/16 11/14/[address] [place], [place] [address] Carlota Landeros MD MD Urology 04/10/[address] [place], [place] [address] Lisseth Vang MD PCP Family Practice 03/30/16 11/14/[address] [place], [place] [address] Michelle Montana, MODESTA Registered Nurse Urology 05/07/17 Anh Costa APRN CNP Nurse Practitioner Nurse Practitioner 1/4 /18 documented as of this encounter
--- OUTSIDE RECORDS SUMMARY | 2022-07-30 19:27 | XMS_ITS | Encounter Summary ---
:1945 Author Organization [facility] Address [address] [place] [address]. [place] [address] Care Team Providers Name Role Phone Lisseth Vang MD Primary Care Provider Carlota Landeros MD Unavailable Lisseth Vang MD Unavailable Michelle Montana RN Unavailable Anh Costa APRN MOLD POLISHER Unavailable Unavailable Encounter Details Date Type Department Care Team Description 10/12/2017 Orders Only [facility] Urology and Carlota Landeros A trophic vaginitis; Inst for Prostate and MD Screen for colon cancer; Urologic Cancers [address] Seasonal allergies; [address] [facility] [address] Chronic rhinitis; 4th Floor [place], [place] Vaginal dryness; [place] [address] Recurrent cold sores; [address] Vitamin D deficiency [phone] Social History Tobacco Use Types Packs/Day Years [...] Office Visit Internal Medicine LogeaisMargot MD [address] [facility] [address] [place] [address] (Wo rk) documented as of [...] vitamin D deficiency documented in this encounter Care Teams Grass Cutter Relationship Specialty Start Date End Date Lisseth Vang MD PCP - General 04/13/16 11/14/[address] [place], [place] [phone] Carlota Landeros MD MD Urology 04/10/[address] [place], [place] [address] Lisseth Vang MD PCP Family Practice 03/30/16 11/14/[address] [place], [place] [phone] Michelle Montana RN Registered Nurse Urology 05/07/17 Anh Costa APRN MOLD POLISHER Nurse Practitioner Nurse Practitioner 10/07 documented as of this encounter
--- OUTSIDE RECORDS SUMMARY | 2022-07-30 19:27 | XMS_ITS | Encounter Summary ---
:1945 Author Organization [place] Address [address] [place] [address]. [place] [address] Care Team Providers Name Role Phone Lisseth Vang MD Primary Care Provider Carlota Landeros MD Unavailable Lisseth Vang MD Unavailable Michelle Montana RN Unavailable Anh Costa APRN, CNP Unavailable Unavailable Reason for Referral CV Testing - Closed Specialty Diagnoses / Procedures Referred By Contact Refer red To Contact Diagnoses Fatigue, unspecified type Palpitations Elevated brain natriuretic peptide (BNP) level Anh Costa APRN CNP Procedures Echocardiogram Complete [address] [place] [address] Referral ID Status Reason Start Date Expiration Date Visits Requ ested Visits Authorized [id number] Closed 04/12/2018 04/12/2019 1 1 Encounter Details Date Type Department Care Team Description 04/12/2018 Orders Only [facility] for Anh Costa Fatigue , unspecified type (Primary Dx); Cardiovascular Disease CLAUDIA Marsh CNP Pal pitations; Prevention Elevated brain natriuretic p eptide (BNP) level [address] [facility] [address] [place] [address] Social History Tobacco Use Types Packs/Day Years Used Date Smoking Tobacco: Never Smokeless Tobacco: Never Alcohol Use Standard Drinks/Week Comments Yes 0 (1 standard drink = 0.6 oz pure alcoho l) wine few times/wk Sex Assigned at Date Recorded Female 12/20/2018 4:10 PM CDT documented as of this encounter Progress Notes Anh Costa APRN CNP - 04/12/2018 9:41 AM CDT Patient is concerned about about NT pro BNP and she has fatigue and occasional palpitations. Will obtain a full echo to check for diastolic dysfunction. Could also consider sleep study. documented in this encounter Plan of Treatment Upcoming Encounters Date Type Specialty Care Team Description 09/10/2022 Office Visit Internal Medicine Logeais, MD Margot [address] [facility] [address] [place], [place] [address] (Wo rk) documented as of this encounter Results Echocardiogram Complete (04/22/2018 3:21 PM CDT) Anatomical Region Laterality Modality Echocardiography Specimen (Source) Anatomical Collection Method Collection Time Re ceived Time Location / / Volume Laterality 04/22/2018 3:02 PM CDT Narrative 04/22/2018 4:34 PM CDT [id number]^TALIA^ANH^RAMIN [facility] Diagnostic and Treamtent-3rd Floor [address] [place] [address] Name: IMELDA GARCIA : 1945 Study Date: 04/22/2018 03:02 PM Age: 72 yrs Gender: Female Patient Location: [facility] Reason For Study: Fatigue, unspecified t ype, [...] present. Previous study not available for félix delgado. __ Left Ventricle Global and regional left [...] note might be different from the original. [id number] [id number]^TALIA^ANH^RAMIN [facility] Diagnostic and Treamtent-3rd Floor [address] [place] [address] Name: IMELDA GARCIA : 1945 Study Date: 04/22/2018 03:02 PM Age: 72 yrs Gender: Female Patient Location: [facility] Reason For Study: Fatigue, unspecified t ype, Palpitations Ordering Physician: ANH COSTA Referring Physician: ANH COSTA Performed By: LUIS ENRIQUE Wilson BSA: 1.9 m2 Height: 67 in [...] encounter Visit Diagnoses Diagnosis Fatigue, unspecified type - Primary Palpitations Elevated brain natriuretic peptide (BNP) level Other nonspecific findings on examinatio n of blood Fatigue, unspecified type Palpitations Elevated brain natriuretic peptide (BNP) level Other nonspecific findings on examinatio n of blood documented in this encounter Additional Health Concerns Assessment Noted Time PHQ-9 Depression Total Score: 1 03/30/2018 7:10 AM CDT documented as of this encounter Care Teams Straw Boss Relationship Specialty Start Date End Date Lisseth Vang MD PCP - General 04/13/16 11/14/[address] [place], [place] [phone] Carlota Landeros MD MD Urology 04/10/[address] [place], [place] [address] Lisseth Vang MD PCP Family Practice 03/30/16 11/14/[address] [place], [place] [address] Michelle Montana, MODESTA Registered Nurse Urology 05/07/17 Anh Costa APRN CNP Nurse Practitioner Nurse Practitioner 10/07 documented as of this encounter
--- OUTSIDE RECORDS SUMMARY | 2022-07-30 19:27 | XMS_ITS | Encounter Summary ---
:1945 Author Organization [facility] Address [address] [place] [address]. [place] [address] Care Team Providers Name Role Phone Lisseth Vang MD Primary Care Provider Carlota Landeros MD Unavailable Lisseth Vang MD Unavailable Michelle Montaan RN Unavailable Reason for Visit Reason Comments Urinary Problem Encounter Details Date Type Department Care Team Description 07/10/2017 Office Visit [facility] Parul Cross R, Dys uria (Primary Dx); [facility] [place] PAReta Nonspecific finding on examination of ur ine; [place] [address] Acute cystitis without hematuria [address] [place] [id number] [phone] Social History Tobacco Use Types Packs/Day Years Used Date Smoking Tobacco: Never Smokeless Tobacco: Never Alcohol Use Standard Drinks/Week Comments Yes 0 (1 standard drink = 0.6 oz pure alcoho l) wine few times/wk Sex Assigned at Date Recorded Female 12/20/2018 4:10 PM CDT documented as of this encounter Last Filed Vital Signs Vital Sign Reading Time Taken Comments Blood Pressure 136/86 07/10/2017 7:10 PM CDT Pulse 86 07/10/2017 7:10 PM CDT Temperature 37.3 ??C (99.2 ??F) 07/10/2017 7:10 PM CDT Respiratory Rate 16 07/10/2017 7:10 PM CDT Oxygen Saturation 96% 07/10/2017 7:10 PM CDT Inhaled Oxygen Concentration - - Weight 80.3 kg (177 lb) 07/10/2017 7:10 PM CDT Height - - Body Mass Index 27.93 06/30/2017 1:15 PM CDT documented in this encounter Progress Notes Parul Cross PA-C - 07/10/2017 7:00 PM CDT HPI: Yamileth is a 71 yo female who presents for dysuria and frequency. She was previously seen by clinic in [place], [place] last Wednesday (1 week ago) for same sx and was prescribed Bactrim BID x 10 days, which she has been taking, but states her sx have not resolved. She states the clinic in [place] prescribedher Bactrim before the UA results were complete so she would not have to wait. She does not believe they did a culture. She took pyridium earlier today. Denies fevers, flank pain or blood in urine. No known allergies to antibx. ROS: See HPI PE: Vitals & nursing notes reviewed. B/P: 136/86, T: 99.2, P: 86, R: 16 Constitutional: Alert, well nourished, well-developed, NAD Lungs: CTA, no wheezes, rhonchi, or rales CV: RRR, no murmur appreciated Abdomen: Soft, NTTP, No HSM, No CVA tenderness, (+) bowel sounds, ASSESSMENT: (N30.00) Acute cystitis without hematuria Comment: Oddly, the UA macro indicated (+) nitrites but UA micro showed WBC 0-2 and RBC 0-2.and no bacteria. Patient is symptomatic so will d/c patient's Bactrim which she had taken for 7 days and Rx Keflex 500mg BID x 7 days. Urine culture pending. Plan: cephALEXin (KEFLEX) 500 MG capsule Increase H2O intake. Discussed signs & sx of pyelonephritis. OTC pyridium PRN. Void before and after sexual intercourse, Wipe front to back after using restroom. Avoid caffeine and alcohol as theyare bladder irritants. Use condoms during sex as antibx may reduce BCP's effectiveness. F/U with PCPif sx persist or worsen. documented in this encounter Nursing Notes Demetris Diaz CMA - 07/10/2017 7:00 PM CDT Chief Complaint Patient presents with ??? Urinary Problem initial BP 136/86 (BP Location: Right arm, Cuff Size: Adult Regular) Pulse 86 Temp 99.2 ??F (37.3 ??C) (Tympanic) Resp 16 Wt 177 lb (80.3 kg) SpO2 96% BMI 27.93 kg/m2 Estimated body mass index is 27.93 kg/(m^2) as calculated from the following: Height as of 17: 5' 6.75 (1.695 m). Weight as of this encounter: 177 lb (80.3 kg). BP completed using cuff size: regular. L arm Health Maintenance that is potentially due pending provider review: NONE n/a Demetris Diaz ma documented in this encounter Plan of Treatment Upcoming Encounters Date Type Specialty Care Team Description 09/10/2022 Office Visit Internal Medicine LogeaisMargot MD [address] [place] [address] [phone] (Wo rk) documented as of this encounter Procedures Procedure Name Priority Date/Time Associated Diagnosis Comme nts URINE MICROSCOPIC Routine 07/10/2017 7:41 PM Dysuria Resu lts for this CDT procedure are i n the results section. UA MACROSCOPIC WITH Routine 07/10/2017 7:41 PM Dysuria Re sults for this REFLEX TO MICRO CDT procedure ar e in the results section. URINE CULTURE Routine 07/10/2017 7:41 PM Nonspecific finding R esults for this CDT on examination of procedure are in urine the results section. documented in this encounter Results (ABNORMAL) Urine Culture Aerobic Bacterial (07/10/2017 7:41 PM CDT) Component Value Ref Test Analysis Performed At [facility] gist Range Method Time Signature Specimen Midstream Urine [facility] Culture Micro 10,000 to 50,000 colonies/mL 017 [facility] Coagulase negative Staphylococcus 9:55 P M CDT [facility] (A) [facility] Specimen (Source) Anatomical Collection Method Collection Time Re ceived Time Location / / Volume Laterality Examination of 07/10/2017 7:41 07/10/2017 7:55 midstream urine PM CDT PM CDT specimen (procedure) Organism Antibiotic Method Susceptibility Coagulase negative Staphylococcus Ciprofloxacin JAKUB >=8 ug/mL: Resistant Coagulase negative Staphylococcus Gentamicin JAKUB <=0.5 ug/mL: Susceptible Coagulase negative Staphylococcus Levofloxacin JAKUB 4 ug/mL: Resistant Coagulase negative Staphylococcus Nitrofurantoin JAKUB <=16 ug/mL: Susceptible Coagulase negative Staphylococcus Oxacillin JAKUB <=0.25 ug/mL: Susceptible Coagulase negative Staphylococcus Penicillin JAKUB >=0.5 ug/mL: Resistant Coagulase negative Staphylococcus Tetracycline JAKUB <=1 ug/mL: Susceptible Coagulase negative Staphylococcus Vancomycin JAKUB 2 ug/mL: Susceptible Parul Cross PA-C LAB - MICRO GENERAL ORDERABL ES Performing Organization Address City/State/ZIP Code Phon e Number [address] [address] [place] Urine Microscopic (07/10/2017 7:41 PM CDT) P athologist Signature WBC Urine O - 2 OTO2^O - 2 07/10/2017 [place] /HPF 7:52 PM CDT [facility] RBC Urine O - 2 OTO2^O - 2 07/10/2017 [facility] /HPF 7:52 PM CDT [facility] Specimen Anatomical Collection Method Collection Time Receive d Time (Source) Location / / Volume Laterality 07/10/2017 7:41 PM 7 7:42 CDT PM CDT Ángel Hernández MD LAB - URINE ORDERABLES Performing Organization Address City/State/ZIP Code Phon e Number [facility] [address] [place] [address] [place] [address] P[place] (ABNORMAL) UA reflex to Microscopic (07/10/2017 7:41 PM CDT) Patholo gist Method Time Signature Color Urine Colleen 07/10/2017 [facility] 7:52 PM CDT [facility] Appearance Urine Clear 07/10/2017 [facility] 7:52 PM CDT [facility] [place] Glucose Urine Negative NEG^Negat 07/10/2017 [place] jennifer mg/dL 7:52 PM CDT [facility] Bilirubin Urine Negative NEG^Negat 07/10/2017 [place] jennifer 7:52 PM CDT [facility] Ketones Urine Negative NEG^Negat 07/10/2017 [place] jennifer mg/dL 7:52 PM CDT [facility] Specific [place] 1.025 1.003 - 07/10/2017 [place] Urine 1.035 7:52 PM CDT [facility] Blood Urine Negative NEG^Negat 07/10/2017 [place] jennifer 7:52 PM CDT [facility] pH Urine 6.0 5.0 - 7.0 07/10/2017 [place] pH 7:52 PM CDT [facility] Protein Albumin Negative NEG^Negat 07/10/2017 [place] Urine jennifer mg/dL 7:52 PM CDT [facility] Urobilinogen 0.2 0.2 - 1.0 07/10/2017 [place] Urine EU/dL 7:52 PM CDT [facility] Nitrite Urine Positive (A) NEG^Negat 07/10/2017 [place] jennifer 7:52 PM CDT [facility] Leukocyte Negative NEG^Negat 07/10/2017 [place] Esterase Urine jennifer 7:52 PM CDT [facility] Source Midstream 07/10/2017 [place] Urine 7:52 PM CDT [facility] Specimen (Source) Anatomical Collection Method Collection Time Re ceived Time Location / / Volume Laterality Examination of 07/10/2017 7:41 07/10/2017 7:42 midstream urine PM CDT PM CDT specimen (procedure) Ángel Hernández MD LAB - URINE ORDERABLES Performing Organization Address City/State/ZIP Code Phon e Number [facility] [address] [place] [address] [place] [address] [place] documented in this encounter Visit Diagnoses Diagnosis Dysuria - Primary Nonspecific finding on examination of ur ine Other nonspecific finding on examination of urine Acute cystitis without hematuria Acute cystitis documented in this encounter Care Teams Mainframe Programmer Relationship Specialty Start Date End Date Lisseth Vang MD PCP - General 04/13/16 11/14/[address] [place] [address] Carlota Landeros MD MD Urology 04/10/[id number] [place] [address] Lisseth Vang MD PCP Family Practice 03/30/16 11/14/[address] [place] [address] Michelle Montana, MODESTA Registered Nurse Urology 05/07/17 documented as of this encounter
--- OUTSIDE RECORDS SUMMARY | 2022-07-30 19:27 | XMS_ITS | Encounter Summary ---
:1945 Author Organization [facility] Address [address] [place] [address]. [place] [address] Care Team Providers Name Role Phone Lisseth Vang MD Primary Care Provider Carlota Landeros MD Unavailable Lisseth Vang MD Unavailable Michelle Montana RN Unavailable Anh Costa APRN PNEUMATIC RIVETER Unavailable Unavailable Encounter Details Date Type Department Care Team Description 10/08/2017 Orders Only Health Urology and Carlota Landeros, Giovanna aginal dryness; Inst for Prostate and MD Screen for colon cancer; [facility] [id number] Atrophic vaginitis 909 [facility] [address] [place] [address] [phone] Social History Tobacco Use Types Packs/Day Years [...] Visit Internal Medicine LogeaMargot man MD [address] [id number] (Wo rk) documented as of this encounter Visit Diagnoses Diagnosis Vaginal dryness Other specified symptom associated with female genital organs Screen for colon cancer Special screening for malignant neoplasm s, colon Atrophic vaginitis Postmenopausal atrophic vaginitis documented in this encounter Care Teams Warehouse Clerk Relationship Specialty Start Date End Date Lisseth Vang MD PCP - General 04/13/16 11/14/[address] [place] [address] Carlota Landeros MD MD Urology 04/10/[address] [place] [address] Lisseth Vang MD PCP Family Practice 03/30/16 11/14/[address] [place], [place] [phone] Michelle Montana RN Registered Nurse Urology 05/07/17 Anh Costa APRN PNEUMATIC RIVETER Nurse Practitioner Nurse Practitioner 10/07 documented as of this encounter
--- OUTSIDE RECORDS SUMMARY | 2022-07-30 19:27 | XMS_ITS | Encounter Summary ---
:1945 Author Organization [facility] Address [address] [place] [address]. [place] [address] Care Team Providers Name Role Phone Lisseth Vang MD Primary Care Provider Carlota Landeros MD Unavailable Lisseth Vang MD Unavailable Michelle Montana RN Unavailable Reason for Visit Reason Comments RECHECK Patient to come into clinic with full bladder for Flow/RU. Encounter Details Date Type Department Care Team Description 08/11/2017 Office Visit [facility] Urology and Carlota Landeros U [facility] Inst for Prostate and MD (Primary Dx) Urologic [facility] [id number] 909 [facility] 100 [address] [place] [address] [phone] Social History Tobacco Use Types Packs/Day Years Used Date Smoking Tobacco: Never Smokeless Tobacco: Never Alcohol Use Standard Drinks/Week Comments Yes 0 (1 standard drink = 0.6 oz pure alcoho l) wine few times/wk Sex Assigned at Date Recorded Female 12/20/2018 4:10 PM CDT documented as of this encounter Last Filed Vital Signs Vital Sign Reading Time Taken Comments Blood Pressure 151/79 08/11/2017 1:38 PM TELECOMMUNICATIONS OFFICER Pulse 69 08/11/2017 1:38 PM TELECOMMUNICATIONS OFFICER Temperature - - Respiratory Rate - - Oxygen Saturation - - Inhaled Oxygen Concentration - - Weight 82.6 kg (182 lb) 08/11/2017 1:38 PM TELECOMMUNICATIONS OFFICER Height 167.6 cm (5' 6) 08/11/2017 1:38 PM TELECOMMUNICATIONS OFFICER Body Mass Index 29.38 08/11/2017 1:38 PM TELECOMMUNICATIONS OFFICER documented in this encounter Patient Instructions Patient InstructionsGaby Mckeon CMA - 08/11/2017 1:15 PM CST Follow up as needed. It was a pleasure meeting with you today. Thank you for allowing me and my team the privilege of caring for you today. YOU are the reason we are here, and I truly hope we provided you with the excellent service you deserve. Please let us know if there is anything else we can do for you so that we can be sure you are leaving completely satisfied with your care experience. 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 Her urinary symptoms have improved since the battery replacement. She was post-operatively having some pain, and upon evaluation by the medtronic rep the settings seemed too high and once reduced the pain resolved. She returns today for flow/RU. The patent notes that she recently had a urinary tract infection; symptoms were urgency. Nitrite positive urine at that time with culture with 10 - 50K coag negative Staph; this was treated. She thinksshe is voiding 4 - 5 times per night. Has nocturia once per night. She denies any current urinary symptoms. Objective: BP 151/79 Pulse 69 Ht 1.676 m (5' 6) Wt 82.6 kg (182 lb) BMI 29.38 kg/m2 Gen: In NAD. Resp: Breathing non-labored on room air CV: Extremities warm. 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 - Reminded patient that battery for InterStim lasts 3 - 5 years - Follow up as needed This patient was seen & discussed with Dr. Landeros. -- Melo Butler MD Urology Resident pgr: [phone] 1:17 PM, 08/11/2017 Patient was seen, evaluated and plan was formulated in conjunction with me and I agree with the above. Carlota Landeros MD COMMUNICATIONS OFFICER documented in this encounter Nursing Notes Gaby Mckeon CMA - 08/11/2017 1:15 PM CST Chief Complaint Patient presents with ??? RECHECK Patient to come into clinic with full bladder for Flow/RU. Gaby Mckeon COMMUNICATIONS OFFICER documented in this encounter Plan of Treatment Upcoming Encounters Date Type Specialty Care Team Description 09/10/2022 Office Visit Internal Medicine Margot Branham MD [address] [place] [id number] (Wo rk) documented as of this encounter Procedures Procedure Name Priority Date/Time Associated Diagnosis Comme nts HC MEASURE POST-VOID Routine 08/11/2017 2:56 PM Urinary retent ion RESIDUAL URINE/BLADDER TELECOMMUNICATIONS OFFICER CAPACITY, US NON-IMAGING HC COMPLEX UROFLOWMETRY Routine 08/11/2017 2:56 PM Urinary ret ention TELECOMMUNICATIONS OFFICER documented in this encounter Visit Diagnoses Diagnosis Urinary retention - Primary Retention of urine, unspecified documented in this encounter Care Teams Ocean Lifeguard Relationship Specialty Start Date End Date Lisseth Vang MD PCP - General 04/13/16 11/14/[address] [place], [place] [phone] Carlota Landeros MD MD Urology 04/10/[address] [place], [place] [address] Lisseth Vang MD PCP Family Practice 03/30/16 11/14/[address] [place], [place] [phone] Michelle Montana, MODESTA Registered Nurse Urology 05/07/17 documented as of this encounter
--- OUTSIDE RECORDS SUMMARY | 2022-07-30 19:27 | XMS_ITS | Encounter Summary ---
:1945 Author Organization [facility] Address [address] [place] [address]. [place] [address] Care Team Providers Name Role Phone Shanell Baum MD Primary Care Provider Carlota Acuña MD Unavailable Shanell Baum MD Unavailable Michelle Montana RN Unavailable Anh Costa APRN CEMENT LOADER Unavailable Unavailable Reason for Referral Diagnostic Imaging Dexa - Closed Specialty Diagnoses / Procedures Referred By Contact Refer red To Contact Diagnoses Disorder of bone and cartilage Shanell Baum MD Procedures Dexa Hip, Pelvis, Spine [address] [place], [place] [address] Referral ID Status Reason Start Date Expiration Date Visits Requ ested Visits Authorized [id number] Closed 03/29/2018 03/29/2019 1 1 Diagnostic Imaging Mammo - Closed Specialty Diagnoses / Procedures Referred By Contact Refer red To Contact Diagnoses Breast cancer screening Shanell Baum MD Procedures MA Screen Bilateral w/[place] [address] [place], [place] [address] Referral ID Status Reason Start Date Expiration Date Visits Requ ested Visits Authorized [id number] Closed 03/29/2018 03/29/2019 1 1 Reason for Visit Reason Comments Annual Visit Encounter Details Date Type Department Care Team Description 03/29/2018 Office Visit [facility], Annual phy sical exam (Primary Dx); [facility] MD Shanell Breast cancer screening; [place] [address] Uterine leiomyoma, unspecifi ed location; [facility] [address] Hyperlipidemia, unspecified hyperlipidem ia type; [facility] [place], Disorder of bone and cartila ge; 3RD FLR,[address] [place] [address] Immunization due [address] [phone] [facility] [address] (Work) [place], [place] [address] [phone] Social History Tobacco Use Types Packs/Day Years Used Date Smoking Tobacco: Never Smokeless Tobacco: Never Alcohol Use Standard Drinks/Week Comments Yes 0 (1 standard drink = 0.6 oz pure alcoho l) wine few times/wk Sex Assigned at Date Recorded Female 12/20/2018 4:10 PM CDT documented as of this encounter Last Filed Vital Signs Vital Sign Reading Time Taken Comments Blood Pressure 112/72 03/29/2018 8:13 AM CDT Pulse 75 03/29/2018 8:13 AM CDT Temperature - - Respiratory Rate - - Oxygen Saturation - - Inhaled Oxygen Concentration - - Weight 78 kg (172 lb) 03/29/2018 8:13 AM CDT Height 168.9 cm (5' 6.5) 03/29/2018 8:13 AM CDT Body Mass Index 27.35 03/29/2018 8:13 AM CDT documented in this encounter Patient Instructions Patient InstructionsShanell Baum MD - 03/29/2018 8:20 AM CDT Mammogram: [phone] DEXA [facility] Scheduling ([phone]) documented in this encounter Progress Notes Shanell Baum MD - 03/29/2018 8:20 AM CDT SUBJECTIVE: Imelda Garcia is a 72 year old female who [...] Home safety: none identified ?? Hearing impairment: No ?? Fall risk: none Concerns: ?? Seeing Ahn Costa for cardiovascular help: LDL Particle Number, NMR 1764 H; BNP 161; Will see Dr. Villanueva on April 07, 2018. Very reluctant to start medication but would consider. ?? Knee pain, bilateral R>L. Able to walk. ?? Remains unclear what PV DESIGN AND INSTALLATION TECHNICIAN follow-up she should have. Was seen at [facility] for Hysteroscopy 06/2016 - has not follow-up. No abnormal bleeding but isn't sure what they advised. [Saw Kaleigh Osbornmaso] HCM: mammogram 12/2015 ; Colonoscopy 05/2016; PV DESIGN AND INSTALLATION TECHNICIAN [seen at February 0906/2016] PAST MEDICAL BILLER/CODER HISTORY: 1 para 1 status post in 1978. Has uterine fibroids [[facility]]. Not on hormone therapy PAST MEDICAL HISTORY: 2) Osteoarthritis of the right hip Minimal invasive surgery 09/09. 3) Hypertension - no medication. 4) Osteopenia - on calcium and vitamin D - will have follow-up DEXA Nov 2011 . 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 Has a home in [place]. Past Surgical History: Procedure Laterality Date ??? [...] ? Nasal passages microwaved. Dr Baer ENT Current Outpatient Prescriptions Medication ??? amoxicillin (AMOXIL) 500 MG capsule ??? aspirin 81 MG tablet ??? azelastine (ASTELIN) 0.1 % [...] 50 MCG/ACT spray ??? GARLIC PO ??? Adni, Zingiber officinalis, (ADIN PO) ??? Glucosamine-Chondroitin (GLUCOSAMINE CHONDR COMPLEX PO) ??? hydrocortisone (ANUSOL-HC) 2.5 % rectal cream ??? ipratropium (ATROVENT) 0.06 % spray ??? LYSINE PO ??? Magnesium 200 MG TABS ??? OTHER MEDICAL SUPPLIES ??? Probiotic Product (PROBIOTIC DAILY PO) ??? TURMERIC PO ??? valACYclovir (VALTREX) 1000 mg tablet ??? valsartan (DIOVAN) 160 MG tablet No current facility-administered medications for this visit. Social History Substance Use Topics ??? Smoking status: Never Smoker ??? Smokeless tobacco: Never Used ??? Alcohol use Yes Comment: wine few times/wk If you drink alcohol do you typically have >3 drinks per day or >7 drinks per week? No Today's PHQ-2 Score: PHQ-2 (??1999 Pfizer) 01/03/2018 06/05/2015 Q1: Little interest or pleasure in doing things 0 0 Q2: Feeling down, depressed or hopeless 0 0 PHQ-2 Score 0 0 Do you feel safe in your environment - Yes Do you have a Health Care Directive?: Yes: Advance Directive has been received and scanned. Current providers sharing in care for this patient include: Patient Care Team: Shanell Baum MD as PCP - General Carlota Acuña MD as MD (Urology) Shanell Baum MD as PCP (Family Practice) Michelle Montana RN as Registered Nurse (Urology) Anh Costa APRN CNP as Nurse Practitioner (Nurse Practitioner) Health Maintenance Topic Date Due ??? FALL RISK ASSESSMENT 2011 ??? MAMMO SCREEN Q2 YR (SYSTEM ASSIGNED) 12/31/2016 ??? INFLUENZA VACCINE (Season Ended) 2018 ??? PHQ-2 Q1 YR 01/03/2019 ??? COLONOSCOPY Q5 YR 05/29/2020 ??? TETANUS IMMUNIZATION (SYSTEM ASSIGNED) 09/24/2020 ??? ADVANCE DIRECTIVE PLANNING Q5 YRS 04/21/2021 ??? LIPID SCREEN Q5 YR FEMALE (SYSTEM ASSIGNED) 07/22/2021 ??? DEXA SCAN SCREENING (SYSTEM ASSIGNED) Completed ??? PNEUMOCOCCAL Completed ??? HEPATITIS C SCREENING Completed ROS: CONSTITUTIONAL: NEGATIVE for fever, chills, change in weight ENT/MOUTH: NEGATIVE for ear, mouth and throat problems RESP: NEGATIVE for significant cough or SOB CV: NEGATIVE for chest pain, palpitations or peripheral edema OBJECTIVE: Ht 1.689 m (5' 6.5) Wt 78 kg (172 lb) BMI 27.35 kg/m2 Estimated body mass index is 27.35 kg/(m^2) as calculated from the following: Height as of this encounter: 1.689 m (5' 6.5). Weight as of this encounter: 78 kg (172 lb). EXAM: GENERAL: healthy, alert and no distress EYES: Eyes grossly normal to inspection, PERRL and conjunctivae and sclerae normal HENT: ear canals and TM's normal, nose and mouth without ulcers or lesions NECK: no adenopathy, no asymmetry, masses, or scars and thyroid normal to palpation RESP: lungs clear to auscultation - no rales, rhonchi or wheezes BREAST: normal without masses, tenderness or nipple discharge and no palpable [...] / PLAN: 1. Annual physical exam - Schedule DEXA 2. Breast cancer screening - MA Screen Bilateral w/[place]; Future - will schedule 3. Uterine leiomyoma, unspecified location - Will consider PV DESIGN AND INSTALLATION TECHNICIAN visit at [facility] or see Dr. Bustos at [facility] 4. Hyperlipidemia, unspecified hyperlipidemia type - Will follow-up Dr. Villanueva - - Very reluctant to start statin - Consider [employer]. [it has worked in the past] 5. Immunization - Shringrix today and needs #2 in two months. End of Life Planning: Patient currently has an advanced directive: Yes. Practitioner is supportive of decision. COUNSELING: Reviewed preventive health counseling, as reflected in patient instructions Regular exercise Healthy diet/nutrition BP Readings from Last 1 Encounters: 03/25/18 121/69 Estimated body mass index is 27.49 kg/(m^2) as calculated from the following: Height as of 03/25/18: 1.695 m (5' 6.75). Weight as of 03/25/18: 79 kg (174 lb 3.2 oz). Weight management plan noted, stable and [...] screening as documented in Health Maintenance) for Imelda meets the Care Plan requirement. This Care Plan has been established and reviewed with the Patient. Counseling Resources: ATP IV Guidelines Pooled Cohorts Equation Calculator Breast Cancer Risk Calculator FRAX Risk Assessment ICSI Preventive Guidelines Dietary Guidelines for Americans, 2009 USDA's MyPlate ASA Prophylaxis Lung CA Screening Shanell Baum MD [facility] documented in this encounter Nursing Notes Addison Martinez LPN - 03/29/2018 8:20 AM CDT Chief Complaint Patient presents with ??? Annual Visit documented in this encounter Plan of Treatment Upcoming Encounters Date Type Specialty Care Team Description 09/10/2022 Office Visit Internal Medicine LogeaisMargot MD [address] [address] (Wo rk) documented as of this encounter Results Dexa Hip, Pelvis, Spine (04/13/2018 8:53 AM CDT) Anatomical Region Laterality Modality Dexa Bone Mineral Density Specimen (Source) Anatomical Location Collection Method / Collectio n Time Received Time / Laterality Volume Narrative 04/16/2018 3:26 PM CDT [facility] [address] [place] [address] Phone: ?? Fax: Final Patient name: ?? IMELDA GARCIA ([id number] ) Patient demographics: [age] year old Whit e Female of 66.5 in. height and 174.5 lbs. weight Ordering provider: SHANELL BAUM History: ??EVAL BONE DENSITY, family hx of osteoporosis, LOW BONE DENSITY, POSTMENOPAUSAL status, right hip hardwar e, right hip replacement Current treatments: Vitamin D, Calcium, ESTROGEN Scan: ??DXA exam ([id number] ): Renew Fibre Exam date: ??04/13/2018 Comparison: ?? 04/13/2018 11/20/2013 [...] for the opportunity to be of s genevae to you and your patient. Principal result ems instructor: Adiel Quinn MD, CCD Buildings And Grounds Coordinatorstreet car mechanic Division of Endocrinology References: 1. ISCD position statements: ??www.iscd. org ??(includes the report of the 2015 ??Position Development Conference) 2. LSC = least significant changes at th e [facility] Imaging Center AP spine = ??0.032 g/cm2 ??(03.29.2007) Left hip = 0.029 g/cm2 ??(03.18.2007) Right hip = 0.018 g/cm2 ??(03.18.2007) Left mid radius = 0.043 g/cm2 ??( 007) Technical comments: L1 T-score: ?? -1.6 ??, ??L2 T-score: ?? -1.2, ??L3 T-score: ??-0.8, ??L4 T-score: 1.9. ??In the circumstances, the lumbar spine is represented by ??L1-3. Shanell Baum MD IMG DEXA ORDERABLES MA Screen Bilateral w/[place] (04/13/2018 8:25 AM [...] to schedule an appointment in a Breast Model Engine Mechanic if she so desires. Code: GC I have personally reviewed the examinati on and initial interpretation and I agree with the findings. PERI ADAM MD Narrative 04/14/2018 8:33 AM CDT EXAMINATION: Bilateral digital screening mammography and bilateral digital tomosynthesis with computer sciences professor d detection. COMPARISON: 12/31/2014, 11/27/2013, 12/10/19, 10/08/2010 HISTORY/FAMILY HISTORY: No symptoms, rou randy screening. Family history of ovarian cancer in niece, in her 40s. TECHNIQUE: ??Tomosynthesis BREAST DENSITY: Scattered fibroglandular densities. COMMENTS: There has been no significant change. ?? Procedure Note Peri Adam MD - 04/14/2018 EXAMINATION: Bilateral digital screening mammography and bilateral digital tomosynthesis with computer sciences professor d detection. COMPARISON: 12/31/2014, 11/27/2013, 12/10/19, 10/08/2010 [...] to schedule an appointment in a Breast Model Engine Mechanic if she so desires. Code: GC I have personally reviewed the examinati on and initial interpretation and I agree with the findings. PERI ADAM MD Shanell Baum MD IMG MAMMOGRAPHY ORDERABLES documented in this encounter Visit Diagnoses Diagnosis Annual physical exam - Primary Routine general medical examination at a health care facility Uterine leiomyoma, unspecified location Hyperlipidemia, unspecified hyperlipidem ia type Disorder of bone and cartilage Disorder of bone and cartilage, unspecif ied Immunization due Need for prophylactic vaccination and in oculation against unspecified single disease Visit for screening mammogram Other screening mammogram Disorder of bone and cartilage Disorder of bone and cartilage, unspecif ied documented in this encounter Additional Health Concerns Assessment Noted Time PHQ-9 Depression Total Score: 1 03/30/2018 7:10 AM CDT documented as of this encounter Care Teams Bar Turner Relationship Specialty Start Date End Date Shanell Baum MD PCP - General 04/13/16 11/14/[address] [place] [address] Carlota Acuña MD MD Urology 04/10/[address] [place], [place] [address] Shanell Baum MD PCP Family Practice 03/30/16 11/14/[address] [place], [place] [address] Michelle Montana, RN Registered Nurse Urology 05/07/17 Anh Costa APRN CEMENT LOADER Nurse Practitioner Nurse Practitioner 10/07 documented as of this encounter
--- OUTSIDE RECORDS SUMMARY | 2022-07-30 19:27 | XMS_ITS | Encounter Summary ---
:1945 Author Organization [place] Address [address] [place] [address]. [place] [address] Care Team Providers Name Role Phone Lisseth Vang MD Primary Care Provider Carlota Landeros MD Unavailable Lisseth Vang MD Unavailable Michelle Montana RN Unavailable Anh Costa APRN OUTSIDE SALESMAN Unavailable Unavailable Reason for Visit Reason Comments RECHECK Follow up medication check f or sinus congestion Encounter Details Date Type Department Care Team Description 01/03/2018 Office Visit [facility] N[facility] and BrewerIsmael parsons MD Nasal congestion (Primary Dx); Throat [address] [facility] Chronic rhinitis, unspecifie d type; [facility] [address] Chronic allergic rhinitis, unspecified s easonality, unspecified trigger; [address] [place], [place] Screen for colon cancer; [place] [address] Seasonal allergic rhinitis, unspecified chronicity, unspecified trigger; [address] Vaginal dryness; [phone] Atrophic vaginitis; Recurrent cold sores; Vitamin D defic iency Social History Tobacco Use Types Packs/Day Years Used Date Smoking Tobacco: Never Smokeless Tobacco: Never Alcohol Use Standard Drinks/Week Comments Yes 0 (1 standard drink = 0.6 oz pure alcoho l) wine few times/wk Sex Assigned at Date Recorded Female 12/20/2018 4:10 PM CDT documented as of this encounter Last Filed Vital Signs Vital Sign Reading Time Taken Comments Blood Pressure 148/81 01/03/2018 6:44 PM CDT Pulse - - Temperature - - Respiratory Rate - - Oxygen Saturation - - Inhaled Oxygen Concentration - - Weight - - Height - - Body Mass Index - - documented in this encounter Patient Instructions Patient InstructionsJoMargot carson RN - 01/03/2018 6:45 PM CDT Plan of care: Follow up with Dr Brewer in one year Clinic contact information: 1. To schedule an appointment call [phone], option 1 2. To talk to the farmworker bulbs call [phone], option 3 3. If you need to speak to Margot or get a message to your doctor on a Wednesday, call the shoe reconditioner 4. MODESTA Frost: [phone] 5. Surgery scheduling: Jordyn Hinds: [phone] Shanna Louis: [phone] 6. 7. [phone] documented in this encounter Progress Notes Honey Brewer MD - 01/03/2018 6:45 PM CDT Patient seen previously for chronic nasal congestion. She has undergone turb reduction in the past. Still has some trouble on R side. Has been using nasal steroids, astelin as needed and atrovent. [place] Dr. Mallory at [facility] for tinnitus. He offered multiple treatments including Topamax and amitriptyline, she has stopped both due to side effects. Nasal Exam: R slightly narrow due to bowing. Left clear. A/P: Chronic nasal obstruction, might be interested in repeat turb reduction. Would have her meet with and schedule procedure with Dr. Santillan. We will renew all of her nose sprays for now. documented in this encounter Nursing Notes Jose Bentley LPN - 01/03/2018 6:45 PM CDT Chief Complaint Patient presents with ??? RECHECK Follow up medication check for sinus congestion Jose Bentley documented in this encounter Plan of Treatment Upcoming Encounters Date Type Specialty Care Team Description 09/10/2022 Office Visit Internal Medicine LogeaisMargot MD [address] [id number] (Wo rk) documented as of this encounter Visit Diagnoses Diagnosis Nasal congestion - Primary Other diseases of nasal cavity and sinus es Chronic rhinitis, unspecified type Chronic allergic rhinitis, unspecified s easonality, unspecified trigger Screen for colon cancer Special screening for malignant neoplasm s, colon Seasonal allergic rhinitis, unspecified chronicity, unspecified trigger Vaginal dryness Other specified symptom associated with female genital organs Atrophic vaginitis Postmenopausal atrophic vaginitis Recurrent cold sores Herpes simplex without mention of compli cation Vitamin D deficiency Unspecified vitamin D deficiency documented in this encounter Care Teams Wood Buffer Relationship Specialty Start Date End Date Lisseth Vang MD PCP - General 04/13/16 11/14/[address] [place] [address] Carlota Landeros MD MD Urology 04/10/[address] [place], [place] [address] Lisseth Vang MD PCP Family Practice 03/30/16 11/14/[address] [place], [place] [address] Michelle Montana, MODESTA Registered Nurse Urology 05/07/17 Anh Costa, FRYLINE ATTENDANT OUTSIDE SALESMAN Nurse Practitioner Nurse Practitioner 10/07 documented as of this encounter
--- OUTSIDE RECORDS SUMMARY | 2022-07-30 19:27 | XMS_ITS | Encounter Summary ---
:1945 Author Organization [facility] Address [address] [place] [address]. [place] [address] Care Team Providers Name Role Phone Lisseth Vang MD Primary Care Provider Carlota Landeros MD Unavailable Lisseth Vang MD Unavailable Michelle Montana RN Unavailable Encounter Details Date Type Department Care Team Description 09/16/[address] [facility] for Anh Costa nsive heart Cardiovascular Disease CLAUDIA Marsh CORPORATE REAL ESTATE SPECIALIST dis ease without heart Prevention failure [address] [place] [address] Social History Tobacco Use Types Packs/Day [...] Visit Internal Medicine Margot Branham MD [address] [address] (Wo rk) documented as of this encounter Results Basic metabolic panel (03/25/2018 6:46 AM CDT) P athologist Signature Sodium 138 133 - 144 03/25/2018 [facility] mmol/L 7:12 AM CDT [facility] Potassium 4.0 3.4 - 5.3 03/25/2018 [facility] mmol/L 7:12 AM CDT [facility] Chloride 105 94 - 109 03/25/2018 [facility] mmol/L 7:12 AM CDT [facility] Carbon Dioxide 26 20 - 32 03/25/2018 [facility] mmol/L 7:12 AM CDT [facility] Anion Gap 7 3 - 14 03/25/2018 [facility] mmol/L 7:12 AM CDT [facility] Glucose 94 70 - 99 03/25/2018 [facility] mg/dL 7:12 AM CDT [facility] Urea Nitrogen 12 7 - 30 03/25/2018 [facility] mg/dL 7:12 AM T [facility] Creatinine 0.87 0.52 - 03/25/2018 [facility] 1.04 mg/dL 7:12 AM T [facility] GFR Estimate 64 >60 03/25/2018 [facility] mL/min/1.7 7:12 AM CDT [address] Comment: Non GFR Calc GFR Estimate If 77 >60 mL/min/1.7m2 03/25/2018 7:12 A M [facility] Black [facility] Comment: GFR Calc Calcium 9.1 8.5 - 10.1 mg/dL 03/25/2018 7:12 AM CDT [facility] Specimen Anatomical Collection Method Collection Time Receive d Time (Source) Location / / Volume Laterality Blood specimen 03/25/2018 6:46 AM 018 6:47 (specimen) CDT AM CDT Anh Costa APRN CORPORATE REAL ESTATE SPECIALIST LAB - BLOOD ORDERABLES Performing Organization Address City/State/ZIP Code Phon e Number [facility] [address] [place] [address] [facility] documented in this encounter Visit Diagnoses Diagnosis Hypertensive heart disease without heart failure Unspecified [facility] documented in this encounter Care Teams Product Mgr Relationship Specialty Start Date End Date Lisseth Vang MD PCP - General 04/13/16 11/14/[address] [facility] [address] [place] [address] Carlota Landeros MD MD Urology 04/10/[address] [place] [address] Lisseth Vang MD PCP Family Practice 03/30/16 11/14/[address] [place] [address] Michelle Montana, RN Registered Nurse Urology 05/07/17 documented as of this encounter
--- OUTSIDE RECORDS SUMMARY | 2022-07-30 19:27 | XMS_ITS | Encounter Summary ---
:1945 Author Organization [facility] Address [address] [place] [address]. [place] [address] Care Team Providers Name Role Phone Lisseth Vang MD Primary Care Provider Carlota Landeros MD Unavailable Lisseth Vang MD Unavailable Michelle Montana RN Unavailable Anh Costa APRN GENERATING PLANT SUPERINTENDENT Unavailable Unavailable Reason for Visit Diagnostic Imaging Mammo - Closed Specialty Diagnoses / Procedures Referred By Contact Refer red To Contact Diagnoses Visit for screening mammogram Lisseth Vang MD Procedures MA Screen Bilateral w/[place] Screening Digital Bilateral [address] [place], [place] [address] Referral ID Status Reason Start Date Expiration Date Visits Requ ested Visits Authorized [id number] Closed 03/24/2018 03/24/2019 1 1 Encounter Details Date Type Department Care Team Description 03/25/2018 Radiant Appointment M [facility] Breast [facility] er Imaging No Show 9 [facility] [place] , [address]nd Floor [place] [phone] Social History Tobacco Use Types Packs/Day [...] Visit Internal Medicine LogeaMargot man MD 909 [facility] [address] [place], [place] [address] (Wo rk) documented as of this encounter Visit Diagnoses Not on filedocumented in this encounter Care Teams Nurse Orthopedic Relationship Specialty Start Date End Date Lisseth Vang MD PCP - General 04/13/16 11/14/[address] [place], [place] [id number] Carlota Landeros MD MD Urology 04/10/[address] [place] [address] Lisseth Vang MD PCP Family Practice 03/30/16 11/14/[address] [place], [place] [id number] Michelle Montana, RN Registered Nurse Urology 05/07/17 Anh Costa APRN GENERATING PLANT SUPERINTENDENT Nurse Practitioner Nurse Practitioner 10/07 documented as of this encounter
--- OUTSIDE RECORDS SUMMARY | 2022-07-30 19:27 | XMS_ITS | Encounter Summary ---
:1945 Author Organization [place] Address [address] [place] [address]. [place] [address] Care Team Providers Name Role Phone Lisseth Vang MD Primary Care Provider Carlota Landeros MD Unavailable Lisseth Vang MD Unavailable Michelle Montana RN Unavailable Reason for Visit Reason Onset Date Comments Refill Request 09/16/2017 Encounter Details Date Type Department Care Team Description 09/16/2017 Refill [facility] Heart Anh Costa APRN Refill Request [address] [phone] Social History Tobacco Use Types [...] Office Visit Internal Medicine LogeaMargot man MD [address] [place] [phone] (Wo rk) documented as of this encounter Visit Diagnoses Diagnosis Hypertensive heart disease without heart failure Unspecified hypertensive heart disease w ithout heart failure documented in this encounter Care Teams Adventure Therapist Relationship Specialty Start Date End Date Lisseth Vang MD PCP - General 04/13/16 11/14/[address] [place], [place] [phone] Carlota Landeros MD MD Urology 04/10/[address] [place], [place] [phone] Lisseth Vang MD PCP Family Practice 03/30/16 11/14/[address] [place], [place] [phone] Michelle Montana, MODESTA Registered Nurse Urology 05/07/17 documented as of this encounter
--- OUTSIDE RECORDS SUMMARY | 2022-07-30 19:27 | XMS_ITS | Encounter Summary ---
:1945 Author Organization [place] Address [address] [place] [address]. [place] [address] Care Team Providers Name Role Phone Lisseth Vang MD Primary Care Provider Carlota Landeros MD Unavailable Lisseth Vang MD Unavailable Michelle Montana RN Unavailable Anh Costa APRN DEVELOPER PROGRAMMER ANALYST Unavailable Unavailable Reason for Visit Reason Onset Date Comments Previsit 01/21/2018 No records Encounter Details Date Type Department Care Team Description 01/21/2018 PRE VISIT [facility] Orthopaedic Sabino Romano Pr evisit (No records) Clinic DPM [address] [phone] Social History Tobacco Use Types Packs/Day Years [...] Visit Internal Medicine Margot Branham MD [address] [phone] (Wo rk) documented as of this encounter Visit Diagnoses Not on filedocumented in this encounter Care Teams Rotary Furnace Tender Relationship Specialty Start Date End Date Lisseth Vang MD PCP - General 04/13/16 11/14/[address] [place] [address] Carlota Landeros MD MD Urology 04/10/[address] [place], [place] [address] Lisseth Vang MD PCP Family Practice 03/30/16 11/14/[address] [place], [place] [phone] Michelle Montana, MODESTA Registered Nurse Urology 05/07/17 Anh Costa APRN DEVELOPER PROGRAMMER ANALYST Nurse Practitioner Nurse Practitioner 10/07 documented as of this encounter
--- OUTSIDE RECORDS SUMMARY | 2022-07-30 19:27 | XMS_ITS | Encounter Summary ---
:1945 Author Organization [place] Address [address] [place] [address]. [place] [address] Care Team Providers Name Role Phone Lisseth Vang MD Primary Care Provider Carlota Landeros MD Unavailable Lisseth Vang MD Unavailable Michelle Montana RN Unavailable Anh Costa APRN ELECTRONICS MECHANIC APPRENTICE Unavailable Unavailable Reason for Visit Reason Comments Medication Refill Encounter Details Date Type Department Care Team Description 01/11/2018 Refill [facility] Carlota Landeros MD Medication Refill for Prostate and Urologic [id number] [place] [address] [place], [place] [address] [phone] Social History Tobacco Use Types Packs/Day Years [...] Office Visit Internal Medicine LogeaisMargot MD [address] [address] (Wo rk) documented as of this encounter Visit Diagnoses Diagnosis Vaginal dryness Other specified symptom associated with female genital organs Screen for colon cancer Special screening for malignant neoplasm s, colon Atrophic vaginitis Postmenopausal atrophic vaginitis documented in this encounter Care Teams Broiler Manager Relationship Specialty Start Date End Date Lisseth Vang MD PCP - General 04/13/16 11/14/[address] [place] [address] Carlota Landeros MD MD Urology 04/10/[id number] [place] [address] Lisseth Vang MD PCP Family Practice 03/30/16 11/14/[address] [place] [address] Michelle Montana RN Registered Nurse Urology 05/07/17 Anh Costa APRN ELECTRONICS MECHANIC APPRENTICE Nurse Practitioner Nurse Practitioner 10/07 documented as of this encounter
--- OUTSIDE RECORDS SUMMARY | 2022-07-30 19:27 | XMS_ITS | Encounter Summary ---
:1945 Author Organization [place] Address [address] [place] [address]. [place] [address] Care Team Providers Name Role Phone Lisseth Vang MD Primary Care Provider Carlota Landeros MD Unavailable Lisseth Vang MD Unavailable Michelle Montana RN Unavailable Anh Costa APRN BUNCH MAKER HAND Unavailable Unavailable Reason for Visit Reason Comments Urgent Care UTI urgency, did take Azo. start ed last night. some burning as well. Encounter Details Date Type Department Care Team Description 11/24/2017 Office Visit [facility] [place], Bladder in fection (Primary Dx); Urgent Care Reed Neal MD Dysuria [place] [address] [facility] [place] [phone] Social History Tobacco Use Types Packs/Day Years Used Date Smoking Tobacco: Never Smokeless Tobacco: Never Alcohol Use Standard Drinks/Week Comments Yes 0 (1 standard drink = 0.6 oz pure alcoho l) wine few times/wk Sex Assigned at Date Recorded Female 12/20/2018 4:10 PM CDT documented as of this encounter Last Filed Vital Signs Vital Sign Reading Time Taken Comments Blood Pressure 138/80 11/24/2017 4:33 PM COMPENSATION BUSINESS PARTNER Pulse 86 11/24/2017 4:33 PM [employer] Temperature 36.6 ??C (97.8 ??F) 11/24/2017 4:33 PM [employer]NER Respiratory Rate 14 11/24/2017 4:33 PM [employer] Oxygen Saturation 97% 11/24/2017 4:33 PM [employer] Inhaled Oxygen Concentration - - Weight 81.6 kg (180 lb) 11/24/2017 4:33 PM [employer] Height 167.6 cm (5' 6) 11/24/2017 4:33 PM [employer] Body Mass Index 29.05 11/24/2017 4:33 PM COMPENSATION BUSINESS PARTNER documented in this encounter Progress Notes Ángel Hernández MD - 11/24/2017 5:00 PM CST Subjective: Patient has a history of frequent urinary tract infections, last one in July, leavingin 2 days for a wedding in [place], last night developed symptoms of frequency and urgency and slight pain. No bad odor. No fevers or back pain. Objective: No CVAT. Abdomen is benign. Urine was done without the dip because she took Azo last night to ease the symptoms. There is blood but no white blood cells. Culture was sent Assessment and plan: Based on symptoms this is a UTI so will treat with 3 days of Septra and I told her we would call if the culture shows something that would require a different treatment. Even if the culture is negative I think she should take the 3 days of antibiotics. ENSATION BUSINESS PARTNER documented in this encounter Nursing Notes Jena Pruitt CMA - 11/24/2017 5:00 PM CST Chief Complaint Patient presents with ??? Urgent Care ??? UTI urgency, did take Azo. started last night. some burning as well. Initial BP 138/80 Pulse 86 Temp 97.8 ??F (36.6 ??C) (Oral) Resp 14 Ht 5' 6 (1.676 m) Wt 180 lb (81.6 kg) SpO2 97% BMI 29.05 kg/m2 Estimated body mass index is 29.05 kg/(m^2) as calculated from the following: Height as of this encounter: 5' 6 (1.676 m). Weight as of this encounter: 180 lb (81.6 kg). Medication Reconciliation: complete ENSATION BUSINESS PARTNER documented in this encounter Plan of Treatment Upcoming Encounters Date Type Specialty Care Team Description 09/10/2022 Office Visit Internal Medicine Margot Branham MD [address] [place] [address] (Wo rk) documented as of this encounter Procedures Procedure Name Priority Date/Time Associated Diagnosis Comme nts URINE CULTURE Routine 11/24/2017 3:50 PM Dysuria Results for this COMPENSATION BUSINESS PARTNER procedure are i n the results section. URINE MICROSCOPIC Routine 11/24/2017 3:48 PM Dysuria Resu lts for this [employer]ATION BUSINESS [employer]NER procedure are i n the results section. documented in this encounter Results Urine Culture Aerobic Bacterial (11/24/2017 3:50 PM COMPENSATION BUSINESS PARTNER) [facility] gist Method Time Signature Specimen Midstream INFECTIOUS Description Urine DISEASE DIAGNOSTIC LABORATORY Culture Micro <10,000 colonies/mL 11/25/2017 INFEC TIOUS mixed urogenital fabby 3:06 PM COMPENSATION BUSINESS PARTNER DISEA SE DIAGNOSTIC LABORATORY Specimen (Source) Anatomical Collection Method Collection Time Re ceived Time Location / / Volume Laterality Examination of 11/24/2017 3:50 11/24/2017 4:44 midstream urine PM [employer]ATION [employer]NER PM [employer]NER specimen (procedure) Ángel Hernández MD LAB - MICRO GENERAL ORDERABL ES Performing Organization Address City/State/ZIP Code Phon e Number INFECTIOUS DISEASES [address] [place] [address] DIAGNOSTIC LABORATORY, [facility] INFECTIOUS DISEASE [address] [place] [address], [facility] DIAGNOSTIC LABORATORY (ABNORMAL) Urine Microscopic (11/24/2017 3:48 PM COMP[employer]ATION BUSINESS PARTNER) Patholo gist Method Time Signature WBC Urine O - 2 OTO2^O - 11/24/2017 [facility] 2 /HPF 3:59 PM [employer]NER [facility] [place] RBC Urine 2-5 (A) OTO2^O - 11/24/2017 [facility] 2 /HPF 3:59 PM [employer] [place] Squamous Moderate (A) FEW^Few 11/24/2017 [facility] Epithelial /LPF 3:59 PM [facility]NER CLINICS /[facility]rine [facility] Bacteria Urine Few (A) NEG^Negat 11/24/2017 [facility] jennifer /HPF 3:59 PM [employer] [place] Mucous Urine Present (A) NEG^Negat 11/24/2017 [facility] jennifer /LPF 3:59 PM [facility] [employer] [place] Comment Urine Interfering 11/24/2017 [facility] substances, 3:59 PM COMP[employer]ATION BUSINESS PARTNER [facility] dipstick not [facility] [place] Comment: COLOR ORANGE CLARITY CLEAR Specimen Anatomical Collection Method Collection Time Receive d Time (Source) Location / / Volume Laterality 11/24/2017 3:48 PM 8 3:51 COMP[employer]ATION BUSINESS [employer]NER PM COMP[employer]ATION BUSINESS PARTNER Ángel Hernández MD LAB - URINE ORDERABLES Performing Organization Address City/State/ZIP Code Phon e Number [facility] [address] [place] [address] [place] [address] [place] documented in this encounter Visit Diagnoses Diagnosis Bladder infection - Primary Cystitis, unspecified Dysuria documented in this encounter Care Teams Electronic Controls Repairer Supervisor Relationship Specialty Start Date End Date Lisseth Vang MD PCP - General 04/13/16 11/14/[address] [place], [place] [phone] Carlota Landeros MD MD Urology 04/10/[address] [place], [place] [phone] Lisseth Vang MD PCP Family Practice 03/30/16 11/14/[address] [place], [place] [phone] Michelle Montana RN Registered Nurse Urology 05/07/17 Anh Costa APRN BUNCH MAKER HAND Nurse Practitioner Nurse Practitioner 10/07 documented as of this encounter
--- OUTSIDE RECORDS SUMMARY | 2022-07-30 19:27 | XMS_ITS | Encounter Summary ---
:1945 Author Organization [facility] Address [address] [place] [address]. [place] [address] Care Team Providers Name Role Phone Lisseth Vang MD Primary Care Provider Carlota Acuña MD Unavailable Lisseth Vang MD Unavailable Michelle Montana RN Unavailable Anh Costa APRN, CNP Unavailable Unavailable Reason for Referral Diagnostic Procedure Outpatient - Closed Specialty Diagnoses / Procedures Referred By Contact Refer red To Contact Diagnoses Snoring Essential hypertension Anh Costa APRN CNP Procedures Spirometry, Breathing Capacity [place] [phone] Referral ID Status Reason Start Date Expiration Date Visits Requ ested Visits Authorized [id number] Closed 03/25/2018 03/25/2019 1 1 - Closed Specialty Diagnoses / Procedures Referred By Contact Refer red To Contact Diagnoses Snoring Essential hypertension Anh Costa APRN CNP [address] [address] Referral ID Status Reason Start Date Expiration Date Visits Requ ested Visits Authorized [id number] Closed 03/25/2018 03/25/2019 1 1 Reason for Visit Reason Comments Lipids Encounter Details Date Type Department Care Team Description 03/25/2018 Office Visit [facility] for Anh Costa (Primary Dx); Cardiovascular Disease CLAUDIA Marsh CNP [facility] ential hypertension Prevention [address] [facility] [address] [place] [address] Social History Tobacco Use Types Packs/Day Years Used Date Smoking Tobacco: Never Smokeless Tobacco: Never Alcohol Use Standard Drinks/Week Comments Yes 0 (1 standard drink = 0.6 oz pure alcoho l) wine few times/wk Sex Assigned at Date Recorded Female 12/20/2018 4:10 PM CDT documented as of this encounter Last Filed Vital Signs Vital Sign Reading Time Taken Comments Blood Pressure 121/69 03/25/2018 7:51 AM CDT Pulse 61 03/25/2018 7:51 AM CDT Temperature - - Respiratory Rate - - Oxygen Saturation 97% 03/25/2018 7:51 AM CDT Inhaled Oxygen Concentration - - Weight 79 kg (174 lb 3.2 oz) 03/25/2018 7:51 AM CDT Height 169.5 cm (5' 6.75) 03/25/2018 7:51 AM CDT Body Mass Index 27.49 03/25/2018 7:51 AM CDT documented in this encounter Progress Notes Anh Costa APRN CNP - 03/25/2018 7:00 AM CDT [facility] Cardiovascular Disease Prevention - Exam Note [...] Medium Reason For Visit Patient here for [facility] early detection of atherosclerosis and CVD exam. Pain Evaluation Current history of pain associated with this visit is: denied HPI Yamileth Ramona Sheikh is a 72 year old year old female with a history of arthritis with right hip replacement, bladder stimulator implant (generator replaced 2016) hyperlipidemia and hypertension. At her last visit perindopril was DC'd because of dry cough and replaced with Valsartan 160 mg per day. Her cough has resolved and her home blood pressures have been well controlled with 117 systolic at the dentist recently. She has declined statin in the past with LDL ranging from 114 to 141 in the last 8 years HDL above average 60-70's. No early CAD in her family but some later in life PGF with MD 65, MGF 82, father 79 with CHF. She feels well with no chest pain, shortness of breath or palpitations. Nutrition assessment per patient report: We discussed my plate and Mediterranean eating patterns and literature was provided. She generallyfollows a mediterranean eating plan but is considering short term of [place] to jump start more weight reduction for a few weeks. Foods with fat/cholesterol (fried foods, fatty meats, junk food): 0 servings Fruits and vegetables (?? cup cooked, 1 cup raw): 5 per day Caffeine (1 cup coffee, soda, etc): 2 servings per day, coffee black Alcohol servings (12 oz. beer, 4 oz. wine, 1?? oz. in mixed drink): 3 servings per week, wine Calcium servings (dairy foods, 8 oz. milk, yogurt, cheese, ice cream): 3- 4 servings per day Salt/sodium use: light use Special dietary habits: mediteranean, with DASH, walnuts and almonds most days. Activity Patient is active 5-7 times per week for 30 or more minutes with walking, yardwork and house chores.She uses some light weights for hand therapy. Laboratory Results Review We discussed laboratory results today including lipids targets and how foods influence cholesterol. Weight Her perceived healthy weight is 160 pounds. A normal BMI of 25 is equal to 157 pounds. The current BMI of 61 is overweight range. A weight reduction speed of 1-2 lbs per month for women is recommended. PMH Past Medical History: Diagnosis Date ??? Benign head tremor many years ??? Deviated nasal septum Dr Baer ENT ??? Elevated glucose 06/23/2016 [facility] ??? Fibroid uterus ??? H/O: varicose veins ??? Hyperlipidemia ASCVD risk 8.1%, declines statin ??? Hypertension ??? Osteoarthritis bilateral hip and knees ??? 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 [...] Nasal passages microwaved. Dr Baer ENT Current Meds Current Outpatient Prescriptions Medication Sig Dispense Refill ??? amoxicillin (AMOXIL) 500 MG capsule Take 2 capsules by mouth as needed 1 hour before dental procedures ??? aspirin 81 MG tablet Take 81 mg by mouth daily ??? azelastine (ASTELIN) 0.1 % spray Sagle 2 sprays into both nostrils 2 times [...] and toenail. 90 g 5 ??? estradiol (ESTRING) [address] 1 each vaginally every 3 months MD APPT./ ANNUAL EXAM FOR ANY REFILLS 1 each 0 ??? fish oil-omega-3 fatty acids (OMEGA 3) 1000 MG capsule Take 1 capsule by mouth 2 times daily ??? fluticasone (FLONASE) 50 MCG/ACT spray Sagle 2 sprays into both nostrils daily 1 Bottle 11 ??? GARLIC PO Take 1 tablet by mouth 3 times daily ??? hydrocortisone (ANUSOL-HC) 2.5 % rectal cream Place rectally 2 times daily 30 g 3 ??? ipratropium (ATROVENT) 0.06 % spray Sagle 2 sprays into both nostrils 4 times daily as needed for rhinitis 1 Box 11 ??? LYSINE PO Take 1 capsule by mouth 2 times daily ??? Magnesium 200 MG TABS Take 4 tablets by mouth daily. ??? OTHER MEDICAL SUPPLIES ROCÍO stockings knee length USE DIRECTED . ??? TURMERIC PO Take 1 tablet by mouth 3 times daily ??? valACYclovir (VALTREX) 1000 mg tablet Take 1 tablet (1,000 mg) by mouth 3 times daily as needed 20 tablet 1 ??? valsartan (DIOVAN) 160 MG tablet Take 1 tablet (160 mg) by mouth daily 90 tablet 3 ??? estradiol (ESTRACE VAGINAL) 0.1 MG/GM cream Place 1 g vaginally three times a week Apply a smallamt externally to vulva three times weekly. 30 g 12 ??? Adin, Zingiber officinalis, (ADIN PO) Take 2 capsules by mouth 3 times daily ??? Glucosamine-Chondroitin (GLUCOSAMINE CHONDR COMPLEX PO) Take 1 tablet by mouth. With MSN ??? Probiotic Product (PROBIOTIC DAILY PO) Take [...] Other - See Comments Brother MVA ??? Parkinsonism Sister Hx TBI, MVA ??? Cancer Sister uterine cancer ??? Cancer Maternal Grandmother 84 of pancreatic cancer ??? Myocardial Infarction Maternal Grandfather 82 of MD ??? Cardiovascular Paternal Grandmother age 65 of heart problems ??? 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 She is single with one son age 38. Enjoyment of life is 10 with 10 [...] NEURO: Negative ENDOCRINE: Negative MUSCULOSKELETAL: Negative MUSCULOSKELETAL: Arthritic pain. Vital Signs BP 121/69 (BP Location: Left arm, Patient Position: Sitting, Cuff Size: Adult Regular) Pulse 61 Ht 1.695 m (5' 6.75) Wt 79 kg (174 lb 3.2 oz) SpO2 97% BMI 27.49 kg/m2 Waist: 40 inches Hip: 41 inches Physical Exam In general, the patient [...] Labs Lab Results Component Value Date GLC 94 03/25/2018 Lab Results Component Value Date NTBNP 161 (H) 03/25/2018 No results found for: NTBNPI Lab Results Component Value Date UCRR 180 03/25/2018 Lab Results Component Value Date MICROL 9 03/25/2018 No results found for: MICROALBUMIN Lab Results Component Value Date CRP 4.9 07/22/2016 Lab Results Component Value Date CHOL 243 (H) 07/22/2016 Lab Results Component Value Date TRIG 193 (H) 07/22/2016 Lab Results Component Value Date HDL 64 07/22/2016 Lab Results Component Value Date LDL 141 (H) 07/22/2016 Lab Results Component Value Date VLDL 31 (H) 01/04/2015 Lab Results Component Value Date CHOLHDLRATIO 3.4 01/04/2015 Lab Results Component Value Date NHDL 179 (H) 07/22/2016 Malin Test Results BASIC SPIROMETRY: Summary of two attempts (see printout for details of results) Results Estimated range for ht/age FVC: 2.48 liter FVC: 2.47-3.94 liter FEV1: 2.31 liter FEV1: 1.81-3.05 liter History of asthma: NO History of respiratory infection current/recent: NO Spirometry Results: normal WALKING BLOOD PRESSURE RESPONSE (3 minute, 5 MET level walk) Pre BP: 130/72 mmHg 3 min BP: 152/70 mmHg 1 min post BP: 126/80 mmHg Pre HR: 74 bpm 3 min HR: 100 bpm 1 min post HR: 69 bpm RETINAL VASCULAR ASSESSMENT Left Eye Abnormality: none AV Ratio: 0.81 Right Eye Abnormality: none AV Ratio: 0.69 Retinal Assessment: normal ABDOMINAL AORTA ULTRASOUND (< 2.5 normal, borderline 2.5-2.9, abnormal > 3) SupraIliac 1.89 cm SupraRenal 1.50 cm InfraRenal Proximal 1.72 cm InfraRenal Distal 1.69 cm Abdominal Aorta Assessment: normal LEFT VENTRICULAR ULTRASOUND MEASUREMENTS (adjusted for BSA) LVIDD 46.6 mm Septa 9.3 mm Posterior 6.7 mm Left Ventricular US Assessment: normal Carotid Artery IMT measurements report and plaques in the small area examined: Left IMT 0.834 mm Plaques none Right IMT 0.884 mm Plaques none ECG (see tracing): normal sinus rhythm; rate:61 bpm Arterial Elasticity per age and gender (see printout): C1 14.2 mL/mmHg x 10 normal C2 2.5 mL/mmHg x 100 abnormal Supine blood pressure: 125/73 mmHg Assessment: Cardiovascular: ECG sinus rhythm rate 61. Asymptomatic with activity like walking and yard work. No chest pain or shortness of breath. She takes low dose aspirin. Nt pro BNP is mildly elevated at 161 was 296 in 2009, normal range 120 in 2015. Blood Pressure: Recent change from perindopril to valsartan 160 mg per day because of cough which has resolved. Blood pressures are well controlled with valsartan in the 110-120's systolic range. Smallarterial compliance is low for her age but similar to result from 2016. Urinary albumin normal range. Creatinine normal range 0.87, GFR 64. Lipids: She would like to have particle size analysis so will obtain lipids with NMR profile. Last LDL mildly elevated at 141 at 10-2015, Lpa 18 normal range 2010. She has declined statin therapy in the past. Glucose normal range today at 94. Health Habit Summary: Nutrition: Heart Healthy Eating: most of the time Exercise: regularly active Weight: overweight range Tobacco Use: never used Full report to follow prevention team review of test results with scanned final report. Time spent for patient visit was 60 minutes with more than half the time spent on counseling and coordination of care. Anh Costa APRN CNP CC Patient Care Team: Lisseth Vang MD as PCP - General Carlota Acuña MD as MD (Urology) Lisseth Vang MD as PCP (Family Practice) Michelle Montana RN as Registered Nurse (Urology) Anh Costa APRN CNP as Nurse Practitioner (Nurse Practitioner) SELF, REFERRED documented in this encounter Plan of Treatment Upcoming Encounters Date Type Specialty Care Team Description 09/10/2022 Office Visit Internal Medicine Margot Branham MD [address] [address] (Wo rk) Scheduled Referrals Name Type Priority Associated Diagnoses Order S chedule SLEEP EVALUATION & Referral Routine Snoring 1 Occurrences starting MANAGEMENT REFERRAL - Essential hypertens ion 03/25/2018 until ADULT -[facility] 2018 [facility] [address] [phone] (Age 18 and up) documented as of this encounter Procedures Procedure Name Priority Date/Time Associated Diagnosis Comme nts EKG 12-LEAD, Routine 03/25/2018 8:04 AM Snoring Results for this TRACING ONLY CDT Essential procedure are i n hypertension the results section. CARDIAC OTHER - HIM 03/25/2018 12:00 SCAN AM CDT HC ANKLE-ARM INDEX Routine 03/25/2018 Essential 1-2 LEVEL BILATERAL hypertension Snoring HC SPIROMETRY, Routine 03/25/2018 Snoring BREATH CAPACITY Essential hypertension HC PHOTOGRAPY Routine 03/25/2018 Snoring FUNDUS Essential hypertension documented in this encounter Results EKG 12-lead, tracing only (03/25/2018 8:04 AM CDT) Patholo gist Method Time Signature Interpretation ECG Click View RADIOLOGY Image link RESULTS to view waveform and result Specimen (Source) Anatomical Collection Method Collection Time Re ceived Time Location / / Volume Laterality 03/25/2018 8:04 AM CDT Narrative This result has an attachment that is no t available. Anh Costa APRN JAVA ARCHITECT ECG ORDERABLES Performing Organization Address City/State/ZIP Code Phon e Number RADIOLOGY RESULTS [employer] (03/25/2018) Narrative This result has an attachment that is no t available. Anh Costa APRN, CNP PROCEDURES Spirometry, Breathing Capacity (03/25/2018) P athologist Signature FEV-1 FVC FEV1/FVC FEF 25/75 Narrative This result has an attachment that is no t available. Anh Costa APRN JAVA ARCHITECT PROCEDURES Arterial PulseWave Analysis (03/25/2018) Anatomical Region Laterality Modality Other Narrative This result has an attachment that is no t available. Anh Costa APRN JAVA ARCHITECT SPECIAL IMAGING STUDIES CARDIAC OTHER - HIM SCAN (03/25/2018 12:00 AM CDT) Specimen (Source) Anatomical Location Collection Method / Collectio n Time Received Time / Laterality Volume 03/25/2018 Narrative This result has an attachment that is no t available. Provider Scan CV CARDIAC SERVICES ORDERABL ES documented in this encounter Visit Diagnoses Diagnosis Snoring - Primary Other dyspnea and respiratory abnormalit y Essential hypertension Unspecified essential hypertension documented in this encounter Care Teams Fixed Wing Aircraft Crew Chief Relationship Specialty Start Date End Date Lisseth Vang MD PCP - General 04/13/16 11/14/[address] [place] [address] Carlota Acuña MD MD Urology 04/10/[address] [place], [place] [address] Lisseth Vang MD PCP Family Practice 03/30/16 11/14/[address] [place], [place] [id number] Michelle Montana, MODESTA Registered Nurse Urology 05/07/17 Anh Costa APRN JAVA ARCHITECT Nurse Practitioner Nurse Practitioner 10/07 documented as of this encounter
--- OUTSIDE RECORDS SUMMARY | 2022-07-30 19:27 | XMS_ITS | Encounter Summary ---
:1945 Author Organization [facility] Address [address] [place] [address]. [place] [address] Care Team Providers Name Role Phone Lisseth Vang MD Primary Care Provider Carlota Landeros MD Unavailable Lisseth Vang MD Unavailable Michelle Montana RN Unavailable Anh Costa APRN LAYOUT INSPECTOR Unavailable Unavailable Reason for Visit Reason Onset Date Comments Refill Request 01/11/2018 Encounter Details Date Type Department Care Team Description 01/11/2018 Refill [facility] Carlota Landeros MD Refill Request for Prostate and Urologic [id number] [place] [address] [place] [address] 4th Floor [place] [phone] Social History Tobacco Use Types Packs/Day [...] Office Visit Internal Medicine LogeaMargot man MD [address] [place] [address] (Wo rk) documented as of this [...] deficiency documented in this encounter Care Teams Desktop Analyst Relationship Specialty Start Date End Date Lisseth Vang MD PCP - General 04/13/16 11/14/[address] [place], [place] [address] Carlota Landeros MD MD Urology 04/10/[address] [place], [place] [address] Lisseth Vang MD PCP Family Practice 03/30/16 11/14/[address] [place], [place] [address] Michelle Montana, MODESTA Registered Nurse Urology 05/07/17 Anh Costa APRN LAYOUT INSPECTOR Nurse Practitioner Nurse Practitioner 10/07 documented as of this encounter
--- OUTSIDE RECORDS SUMMARY | 2022-07-30 19:27 | XMS_ITS | Encounter Summary ---
:1945 Author Organization [facility] Address [address] [place] [address] [address] Care Team Providers Name Role Phone Lisseth Vang MD Primary Care Provider Carlota Landeros MD Unavailable Lisseth Vang MD Unavailable Michelle Montana RN Unavailable Anh Costa APRN, CNP Unavailable Unavailable Encounter Details Date Type Department Care Team Description 03/17/2018 Orders Only [facility] for Anh Costa hypertension Cardiovascular Disease CLAUDIA Marsh CNP (Pr imary Dx) Prevention [address] [place] [phone] Social History Tobacco Use Types Packs/Day [...] 09/10/2022 Office Visit Internal Medicine LogeaisMargot MD [address] [place] [address] (Wo rk) documented as of this encounter Results Albumin Random Urine Quantitative with Creat Ratio (03/25/2018 7:09 AM CDT) P athologist Signature Creatinine 180 mg/dL 03/25/2018 [facility] Urine 7:47 AM CDT [facility] Albumin Urine 9 mg/L 03/25/2018 [facility] mg/L 7:47 AM CDT [facility] Albumin Urine 5.14 0 - 25 03/25/2018 [facility] mg/g Cr mg/g Cr 7:47 AM CDT [facility] Specimen Anatomical Collection Method Collection Time Receive d Time (Source) Location / / Volume Laterality Urine specimen 03/25/2018 7:09 AM 018 7:14 (specimen) CDT AM CDT Anh Costa APRN COREMAKER APPRENTICE LAB - URINE ORDERABLES Performing Organization Address City/[facility]/ZIP Code Phon e Number [facility] [address] [place] [phone] [facility] CRP cardiac risk (03/25/2018 6:46 AM CDT) P athologist Signature CRP Cardiac 9.3 mg/L 03/25/2018 [facility] Risk 11:28 AM CDT [facility] Comment: Reference Values: Low Risk: ? <1.0 mg/L Average Risk: ? 1.0-3.0 mg/L High Risk: ?>3.0 mg/L Acute Inflammation: >8.0 mg/L Specimen Anatomical Collection Method Collection Time Receive d Time (Source) Location / / Volume Laterality Blood specimen 03/25/2018 6:46 AM 018 6:47 (specimen) CDT AM CDT Anh Costa APRN COREMAKER APPRENTICE LAB - BLOOD ORDERABLES Performing Organization Address City/State/ZIP Code Phon e Number [facility] [address] documented in this encounter Visit Diagnoses Diagnosis Essential hypertension - Primary Unspecified essential hypertension documented in this encounter Care Teams Credit Counselor Relationship Specialty Start Date End Date Lisseth Vang MD PCP - General 04/13/16 11/14/[address] [place] [address] Carlota Landeros MD MD Urology 04/10/[address] [place] [address] Lisseth Vang MD PCP Family Practice 03/30/16 11/14/[address] [place] [address] Michelle Montana, MODESTA Registered Nurse Urology 05/07/17 Anh Costa APRN COREMAKER APPRENTICE Nurse Practitioner Nurse Practitioner 10/07 documented as of this encounter
--- OUTSIDE RECORDS SUMMARY | 2022-07-30 19:27 | XMS_ITS | Encounter Summary ---
:1945 Author Organization [place] Address [address] [place] [address]. [place] [address] Care Team Providers Name Role Phone Lisseth Vang MD Primary Care Provider Carlota Acuña MD Unavailable Lisseth Vang MD Unavailable Michelle Montana RN Unavailable Anh Costa APRN, CNP Unavailable Unavailable Encounter Details Date Type Department Care Team Description 01/24/2018 Office Visit [facility] for Anh Costa hypertension Cardiovascular Disease CLAUDIA Marsh CNP (Pr imary Dx) [address] [address] Social History Tobacco Use Types Packs/Day Years Used Date Smoking Tobacco: Never Smokeless Tobacco: Never Alcohol Use Standard Drinks/Week Comments Yes 0 (1 standard drink = 0.6 oz pure alcoho l) wine few times/wk Sex Assigned at Date Recorded Female 12/20/2018 4:10 PM CDT documented as of this encounter Last Filed Vital Signs Vital Sign Reading Time Taken Comments Blood Pressure 130/68 01/24/2018 1:56 PM CDT Pulse 77 01/24/2018 1:56 PM CDT Temperature - - Respiratory Rate - - Oxygen Saturation 96% 01/24/2018 1:56 PM CDT Inhaled Oxygen Concentration - - Weight 81.6 kg (180 lb) 01/24/2018 1:56 PM CDT Height 168.9 cm (5' 6.5) 01/24/2018 1:56 PM CDT Body Mass Index 28.62 01/24/2018 1:56 PM CDT documented in this encounter Patient Instructions Patient InstructionsAnh Costa APRN CNP - 01/24/2018 2:00 PM CDT Discontinue perindopril and replace with valsartan 160 mg per day. Return for follow up lab work with your Malin exam this summer. documented in this encounter Progress Notes Anh Costa APRN CNP - 01/24/2018 2:00 PM CDT PROBLEM LIST Patient Active Problem List [...] ACP (advance care planning) ??? Elevated glucose HPI: Yamileth Sheikh is a 72 year old year old female with a history of head tremor, hip replacement, bladder implant, high blood pressure hypertension and hyperlipidemia with elevated triglycerides. Shehas declined statin in the past for mixed hyperlipidemia with LDL up to 141 mg/dl and triglycerides up to 193. She is taking perindopril 4 mg per day but reports that she is having more difficulty withdry cough. She recently joined an exercise facility and using biking, walking and doing a food journal with a goal of weight reduction to 150 pounds. No chest pain or shortness of breath, no edema or palpitations. PAST MEDICAL HISTORY: Past Medical History: Diagnosis Date ??? Arthritis ??? Benign head tremor many years ??? Deviated nasal septum Dr Baer ENT ??? Elevated glucose 06/23/2016 [facility] ??? Fibroid uterus ??? H/O: varicose veins ??? Hyperlipidemia ASCVD risk 8.1%, declines statin ??? Labile hypertension no medication ??? Osteoarthritis right hip ??? S/P hip replacement 2008 right ??? Urinary problem 2011 has a bladder implant, interstim ??? Vitamin D deficiency CURRENT MEDICATIONS: Current Outpatient Prescriptions Medication Sig Dispense Refill ??? amoxicillin (AMOXIL) 500 MG capsule Take 2 capsules by mouth as needed 1 hour before dental procedures ??? aspirin 81 MG tablet Take 81 mg by mouth daily ??? azelastine (ASTELIN) 0.1 % spray [place] 2 sprays into both nostrils 2 times daily 90 mL 11 ??? B Complex Vitamins (VITAMIN-B COMPLEX PO) Take 1 tablet by mouth daily ??? BOOSTRIX 5-2.5-18.5 injection ??? Calcium-Magnesium (ASHLYN/MAG CITRATE) 250-125 MG TABS [...] daily ??? fluticasone (FLONASE) 50 MCG/ACT spray [place] 2 sprays into both nostrils daily 1 [...] 3 ??? ipratropium (ATROVENT) 0.06 % spray [place] 2 sprays into both nostrils 4 times [...] mg) by mouth daily 90 tablet 3 PAST SURGICAL HISTORY: Past Surgical History: Procedure Laterality Date ??? ARTHROPLASTY HIP right ??? BREAST BIOPSY, RT/LT Breast Biopsy RT/LT ??? C/SECTION, CLASSICAL 1978 , Classical ??? CL AFF SURGICAL PATHOLOGY 1989 Breast Reduction ??? CYSTOSCOPY, SLING TRANSVAGINAL N/A 03/26/2015 Procedure: CYSTOSCOPY, SLING TRANSVAGINAL; Surgeon: Carlota Acuña MD; Location: [facility] OR ??? HC COLONOSCOPY THRU STOMA, DIAGNOSTIC +FHx 2007 ??? HRW VEIN STRIPPER Left 1996 ??? HYSTEROSCOPY 06-24-2016 ??? IMPLANT STIMULATOR AND LEADS SACRAL NERVE (STAGE ONE AND TWO) 05/19/2011 Procedure:IMPLANT STIMULATOR AND LEADS SACRAL NERVE (STAGE ONE AND TWO); Surgeon:CARLOTA ACUÑA;Location:[facility] OR ??? MAMMOPLASTY REDUCTION ??? REPLACE GENERATOR STIMULATOR (LOCATION) Left 04/27/2017 Procedure: REPLACE GENERATOR STIMULATOR (LOCATION); Replacement of Left Interstim Battery Latex Allergy; Surgeon: Carlota Acuña MD; [facility] ??? SURGICAL HISTORY OF - ? Nasal passages microwaved. Dr Baer ENT ALLERGIES Allergies Allergen Reactions ??? Propofol Other (See Comments) and Nausea and Vomiting Other reaction(s): GI intolerance Extreme vertigo and nausea/vomiting ??? Codeine Nausea and Vomiting ??? Morphine Nausea and Vomiting Other reaction(s): GI intolerance ??? Oxycodone Other (See Comments) ??? Latex Rash ??? Nickel Rash ??? Tape [Adhesive Tape] Rash Including steri-strips FAMILY HISTORY: Family History Problem Relation Age of Onset ??? Cancer - colorectal Mother colon polyps, age 93 ??? Cardiovascular Father CHF age 79, hx of PE and HTN ??? Hypertension Father ??? CANCER Sister uterine cancer ??? CANCER Maternal Grandmother 84 of pancreatic cancer ??? Myocardial Infarction Maternal Grandfather 82 of [place] ??? Cardiovascular Paternal Grandmother age 65 of heart problems ??? Pneumonia Paternal Grandfather age 70 after flu ??? Parkinsonism Sister SOCIAL HISTORY: Social History Social History ??? Marital status: Single Spouse name: N/A ??? Number of children: N/A ??? Years of education: N/A Occupational History ??? 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 [...] 1 son - - still working at [employer] - mongolian as a second language - lives in a house - retiring - March 2015 ROS: Constitutional: No fever, chills, or sweats. No weight gain/loss ENT: No visual disturbance, ear ache, epistaxis, sore throat Allergies/Immunologic: Negative. Respiratory: No cough, hemoptysia Cardiovascular: As per HPI GI: No nausea, vomiting, hematemesis, melena, or hematochezia : No urinary frequency, dysuria, or hematuria Integument: Negative Psychiatric: Negative Neuro: Negative Endocrinology: Negative Musculoskeletal: Negative EXAM: BP 130/68 (BP Location: Right arm, Patient Position: Sitting, Cuff Size: Adult Regular) Pulse 77 Ht 1.689 m (5' 6.5) Wt 81.6 kg (180 lb) SpO2 96% BMI 28.62 kg/m2 In general, the patient is a [...] RESULTS: Lab Results Component Value Date NA 142 07/22/2016 Lab Results Component Value Date POTASSIUM 4.3 07/22/2016 Lab Results Component Value Date CHLORIDE 109 07/22/2016 Lab Results Component Value Date ASHLYN 8.7 07/22/2016 Lab Results Component Value Date CO2 26 07/22/2016 Lab Results Component Value Date BUN 10 07/22/2016 Lab Results Component Value Date CR 0.83 07/22/2016 Lab Results Component Value Date GFRESTIMATED 68 07/22/2016 Lab Results Component Value Date GLC 98 07/22/2016 Lab Results Component Value Date A1C 5.4 07/22/2016 No results found for: INR Procedures: Assessment and Plan: Cardiovascular: No chest pain or shortness of breath. Blood pressure: 130/68 today with 4 mg of perindopril. She is having a dry cough so will change to valsartan 160 mg per day. She will check her BP at home and let me know results in a few weeks. She will call me if she does not feel well on the medication. She has low artery compliance as assessed at her last Malin exam with statin and treatment of BP recommended. Lipids: Last LDL was borderline high at 141. She has declined statin therapy in the past. She will return for her Malin exam in a few months and we will assess progression of early disease and reassess lipids to see if these have improved with change in health habits. Plan 1. DC perindopril and start valsartan 160 mg per day. 2. Obtain home BP's and follow up via phone in two weeks. documented in this encounter Plan of Treatment Upcoming Encounters Date Type Specialty Care Team Description 09/10/2022 Office Visit Internal Medicine Margot Branham MD [address] [place] [address] [id number] (Wo rk) documented as of this encounter Visit Diagnoses Diagnosis Essential hypertension - Primary Unspecified essential hypertension documented in this encounter Care Teams Corporate Specialist Relationship Specialty Start Date End Date Lisseth Vang MD PCP - General 04/13/16 11/14/[address] [place], [place] [phone] Carlota Acuña MD MD Urology 04/10/[address] [place], [place] [phone] Lisseth Vang MD PCP Family Practice 03/30/16 11/14/[address] [place], [place] [phone] Michelle Montana, RN Registered Nurse Urology 05/07/17 Anh Costa APRN CNP Nurse Practitioner Nurse Practitioner 10/07 documented as of this encounter
--- OUTSIDE RECORDS SUMMARY | 2022-07-30 19:27 | XMS_ITS | Encounter Summary ---
:1945 Author Organization [facility] Address [address] [place] [address]. [place] [address] Care Team Providers Name Role Phone Lisseth Vang MD Primary Care Provider Carlota Landeros MD Unavailable Lisseth Vang MD Unavailable Michelle Montana RN Unavailable Anh Costa APRN CHILD CARE EDUCATION COORDINATOR Unavailable Unavailable Reason for Visit Diagnostic Imaging Mammo - Closed Specialty Diagnoses / Procedures Referred By Contact Refer red To Contact Diagnoses Visit for screening mammogram Lisseth Vang MD Procedures MA Screen Bilateral w/[place] Screening Digital Bilateral [address] [place], [place] [address] Referral ID Status Reason Start Date Expiration Date Visits Requ ested Visits Authorized [id number] Closed 03/24/2018 03/24/2019 1 1 Encounter Details Date Type Department Care Team Description 03/28/2018 [facility] Only [facility] Visit for screening Imaging mammogram 9[address] [facility], 2nd Floor [place] [phone] Social History Tobacco Use Types Packs/Day [...] Visit Internal Medicine LogMargot sadler MD 909 [facility] [address] [place], [place] [address] (Wo rk) documented as of this encounter Visit Diagnoses Diagnosis Visit for screening mammogram Other screening mammogram documented in this encounter Care Teams Delivery Driver Relationship Specialty Start Date End Date Lisseth Vang MD PCP - General 04/13/16 11/14/[address] [place], [place] [address] Carlota Landeros MD MD Urology 04/10/[address] [place], [place] [phone] Lisseth Vang MD PCP Family Practice 03/30/16 11/14/[address] [place], [place] [address] Michelle Montana, MODESTA Registered Nurse Urology 05/07/17 Anh Costa APRN CHILD CARE EDUCATION COORDINATOR Nurse Practitioner Nurse Practitioner 10/07 documented as of this encounter
--- OUTSIDE RECORDS SUMMARY | 2022-07-30 19:27 | XMS_ITS | Encounter Summary ---
:1945 Author Organization [place] Address [address] [place] [address]. [place] [address] Care Team Providers Name Role Phone Lisseth Vang MD Primary Care Provider Carlota Landeros MD Unavailable Lisseth Vang MD Unavailable Michelle Montana RN Unavailable Anh Costa APRN CHIEF MECHANICAL ENGINEER Unavailable Unavailable Martinez Galicia MD Unavailable Sabino Romano DPM Unavailable Kyle Roberts MD Primary Care Provider Mehreen Johnston MD PhD Unavailable [phone] LogeaMargot man MD Unavailable Martinez Galicia MD Unavailable LogMargot sadler MD Unavailable LogMargot sadler MD Primary Care Provider Levy Hussein MD Unavailable Alonso Tejeda MD Unavailable Reason for Visit Reason Onset Date Comments Appointment 04/11/2018 Pt requesting Shorte r appt with Anh to discuss test results and is looking at for the appointment. I wasn't able to schedule, so sending message per Pt's request to see if she could be seen for a short appt with Anh. Encounter Details Date Type Department Care Team Description 04/11/2018 Telephone [facility] for Anh Costa, Lesly ointment (Pt Cardiovascular Disease CRIPPLE WORKER CHIEF MECHANICAL ENGINEER reque sting [place] Prevention appt with Anh to [address] [facility] discuss test results 5th Floor and is looking at 04/22 [place], [place] [phone] for the appointment. I [phone] wasn't able to schedule, so se nding message per Pt' s request to see if she could be seen f or a short appt with Anh. ) Social History Tobacco Use Types Packs/Day Years Used Date Smoking Tobacco: Never Smokeless Tobacco: Never Alcohol Use Standard Drinks/Week Comments Yes 0 (1 standard drink = 0.6 oz pure alcoho l) wine few times/wk Sex Assigned at Date Recorded Female 12/20/2018 4:10 PM CDT documented as of this encounter Miscellaneous Notes Telephone Encounter - Magdalena Dunn - 04/11/2018 10:54 AM CDT [facility] Phone Message May a detailed message be left on voicemail: yes Reason for Call: Other: Pt requesting [place] appt with Anh to discuss test results and is looking at 04/22 for the appointment. I wasn't able to schedule, so sending message per Pt's request to see ifleonidese could be seen for a short appt with Anh. Action Taken: Message routed to: [facility] documented in this encounter Plan of Treatment Upcoming Encounters Date Type Specialty Care Team Description 09/10/2022 Office Visit Internal Medicine Margot Branham MD [address] [facility] [address] [place] [address] (Wo rk) documented as of this encounter Visit Diagnoses Not on filedocumented in this encounter Additional Health Concerns Assessment Noted Time PHQ-9 Depression Total Score: 1 03/30/2018 7:10 AM CDT documented as of this encounter Care Teams Ammunition Specialist Relationship Specialty Start Date End Date Lisseth Vang, PCP - General 04/13/16 11/14/[address] [place], [place] [address] Kyle Roberts MD PCP - General Family Practice 11/15/19 10/27/[address] [place], [place] [address] Margot Branham MD PCP - General Internal Medicine 10/28/[address] [place] [address] Carlota Landeros MD MD Urology 04/10/[address] [place], [place] [address] Lisseth Vang, JAMAR Family Practice 03/30/[address] [place], [place] [address] Michelle Montana, MODESTA Registered Nurse Urology 05/07/17 Anh Costa APRN Nurse Practitioner Nurse Practitioner 10/07/17 Martinez Hernandez MD Ophthalmology 04/18/[address] [address] Sabino Romano DPM MD Podiatry 08/11/18 [facility] [address] [address] Mehreen Johnston MD Family Practice 11/15/[address] [place] [address] Margot Branham MD MD Internal Medicine 04/17/[address] [place] [address] Martinez Galicia, Assigned Surgical 07/26/20 MD Provider [address] [place] [phone] Margot Branham MD Assigned PCP 09/15/[address] [place] [address] [phone] Levy Hussein MD Assigned Surgical 03/23/21 06/14/[address] [place] [address] Provider [place], [place] [phone] Alonso Tejeda MD MD Internal Medicine 06/19/[address] [place] [address] documented as of this encounter
--- OUTSIDE RECORDS SUMMARY | 2022-07-30 19:27 | XMS_ITS | Encounter Summary ---
:1945 Author Organization [facility] Address [address] [place] [address]. [place] [address] Care Team Providers Name Role Phone Lisseth Vang MD Primary Care Provider Carlota Landeros MD Unavailable Lisseth Vang MD Unavailable Michelle Montana RN Unavailable Encounter Details Date Type Department Care Team Description 09/20/2017 Orders Only [facility] Anh Costa nsive heart Cardiovascular Disease Sal[place], CLAUDIA SPECIAL EDUCATION PARA PROFESSIONAL dis ease without heart Prevention failure [address] [place] [phone] Social History Tobacco Use Types Packs/Day [...] Visit Internal Medicine LogMargot sadler MD [address] [address] (Wo rk) documented as of this encounter Visit Diagnoses Diagnosis Hypertensive heart disease without heart failure Unspecified hypertensive heart disease w ithout heart failure documented in this encounter Care Teams Pricing Associate Relationship Specialty Start Date End Date Lisseth Vang MD PCP - General 04/13/16 11/14/[address] [place] [address] Carlota Landeros MD MD Urology 04/10/[address] [place], [place] [phone] Lisseth Vang MD PCP Family Practice 03/30/16 11/14/[address] [place], [place] [phone] Michelle Montana, MODESTA Registered Nurse Urology 05/07/17 documented as of this encounter
--- OUTSIDE RECORDS SUMMARY | 2022-07-30 19:27 | XMS_ITS | Encounter Summary ---
:1945 Author Organization [facility] Address [address] [place] [address]. [place] [address] Care Team Providers Name Role Phone Lisseth Vang MD Primary Care Provider Carlota Landeros MD Unavailable Lisseth Vang MD Unavailable Michelle Montana RN Unavailable Anh Costa APRN, CNP Unavailable Unavailable Encounter Details Date Type Department Care Team Description 12/07/2017 Orders Only [facility] for Anh Costa nsive heart Cardiovascular Disease CLAUDIA Marsh CNP dis ease without heart Prevention failure [address] [place] [phone] Social History Tobacco Use Types Packs/Day [...] Office Visit Internal Medicine LogeaisMargot MD [address] [address] (Wo rk) documented as of this encounter Visit Diagnoses Diagnosis Hypertensive heart disease without heart failure Unspecified hypertensive heart disease w ithout heart failure documented in this encounter Care Teams Stepdown Nurse Relationship Specialty Start Date End Date Lisseth Vang MD PCP - General 04/13/16 11/14/[address] [place] [address] Carlota Landeros MD MD Urology 04/10/[address] [place], [place] [address] Lisseth Vang MD PCP Family Practice 03/30/16 11/14/[address] [place], [place] [phone] Michelle Montana RN Registered Nurse Urology 05/07/17 Anh Costa APRN SURVEY COORDINATOR Nurse Practitioner Nurse Practitioner 10/07 documented as of this encounter
--- OUTSIDE RECORDS SUMMARY | 2022-07-30 19:27 | XMS_ITS | Encounter Summary ---
:1945 Author Organization [facility] Address [address] [place] [address]. [place] [address] Care Team Providers Name Role Phone Lisseth Vang MD Primary Care Provider Carlota Landeros MD Unavailable Lisseth Vang MD Unavailable Michelle Montana RN Unavailable Anh Costa APRN, CNP Unavailable Unavailable Encounter Details Date Type Department Care Team Description 03/24/2018 Orders Only [facility] for Anh Costa hypertension (Primary Dx); Cardiovascular Disease CLAUDIA Marsh CNP Hyp erlipidemia, unspecified hyperlipidemia type; Prevention CARDIOVASCULAR SCREENING; LD L GOAL LESS THAN 130 [address] [facility] [address] [place] [address] Social History Tobacco Use Types [...] Visit Internal Medicine Margot Branham MD 909 [facility] [address] [place], [place] [address] (Wo rk) documented as of this encounter Results NMR Lipo Profile: Laboratory Miscellaneous Order (03/25/2018 6:47 AM CDT) Component Value Ref Test Analysis Performed At Patholo gist Range Method Time Signature Miscellaneous Specimen Received, Reordered and sent to Performing laboratory - Report to follow upon 03/25/2018 [facility] Test completion. 8:14 AM CDT [facility] Specimen Anatomical Collection Method Collection Time Receive d Time (Source) Location / / Volume Laterality Blood specimen 03/25/2018 6:47 AM 018 6:48 (specimen) CDT AM CDT Anh Costa APRN, CNP LAB - BLOOD ORDERABLES Performing Organization Address City/[facility] Phon e Number [address] [address] [facility] (ABNORMAL) N terminal pro BNP outpatient (03/25/2018 6:46 AM CDT) P athologist Signature N-Terminal Pro 161 (H) 0 - 125 03/25/2018 [place] [facility] Bnp pg/mL 7:12 AM CDT [facility] Comment: Reference range shown and results flagge [...] LAB - BLOOD ORDERABLES Performing Organization Address City/[facility] Phon e Number [address] [address] [facility] documented in this encounter Visit Diagnoses Diagnosis Essential hypertension - Primary Unspecified essential hypertension Hyperlipidemia, unspecified hyperlipidem ia type CARDIOVASCULAR SCREENING; LDL GOAL LESS THAN 130 documented in this encounter Care Teams Lockmaker Relationship Specialty Start Date End Date Lisseth Vang MD PCP - General 04/13/16 11/14/[address] [place] [address] Carlota Landeros MD MD Urology 04/10/[address] [place], [place] [phone] Lisseth Vang MD PCP Family Practice 03/30/16 11/14/[address] [place], [place] [address] Michelle Montana, MODESTA Registered Nurse Urology 05/07/17 Anh Costa APRN LEAD MOBILE DEVELOPER Nurse Practitioner Nurse Practitioner 10/07 documented as of this encounter
--- OUTSIDE RECORDS SUMMARY | 2022-07-30 19:27 | XMS_ITS | Encounter Summary ---
:1945 Author Organization [facility] Address [address] [place] [address]. [place] [address] Care Team Providers Name Role Phone Lisseth Vang MD Primary Care Provider Carlota Landeros MD Unavailable Lisseth Vang MD Unavailable Michelle Montana RN Unavailable Reason for Visit Reason Comments RECHECK Interstim follow up Encounter Details Date Type Department Care Team Description 06/30/2017 Office Visit [facility] and Carlota Landeros U rgbeba incontinence of urine (Primary Dx); Inst for Prostate and MD Urinary urgency Urologic C[facility] [id number] [facility] [address] [place] [phone] Social History Tobacco Use Types Packs/Day Years Used Date Smoking Tobacco: Never Smokeless Tobacco: Never Alcohol Use Standard Drinks/Week Comments Yes 0 (1 standard drink = 0.6 oz pure alcoho l) wine few times/wk Sex Assigned at Date Recorded Female 12/20/2018 4:10 PM CDT documented as of this encounter Last Filed Vital Signs Vital Sign Reading Time Taken Comments Blood Pressure 155/81 06/30/2017 1:15 PM CDT Pulse 68 06/30/2017 1:15 PM CDT Temperature - - Respiratory Rate - - Oxygen Saturation - - Inhaled Oxygen Concentration - - Weight 81.7 kg (180 lb 3.2 oz) 06/30/2017 1:15 PM CDT Height 169.5 cm (5' 6.75) 06/30/2017 1:15 PM CDT Body Mass Index 28.44 06/30/2017 1:15 PM CDT documented in this encounter Progress Notes Carlota Landeros MD - 06/30/2017 2:00 PM CDT Reason for Visit: Follow-up on urinary symptoms ?? Clinical Data: Ms. 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 She reports that her urinary symptoms have improved since the battery replacement. She was however having some pain. Upon evaluation by the [employer] rep the settings seemed too high and once reduced the pain resolved. Exam BP 155/81 Pulse 68 Ht 1.695 m (5' 6.75) Wt 81.7 kg (180 lb 3.2 oz) BMI 28.44 kg/m2 No acute distress Non-labored breathing on RA ?? A/P 71 year old female with mixed incontinence s/p midurethral sling in 2015 and Interstsim placement in 2010 (left side) doing well after reduction of interstim settings. She would like to know how her flow is after the new settings. - Follow up in 1 months for a flow/ru Thank you for allowing me to participate in the care of Ms. Yamileth Sheikh and I will keep you updated on her progress. Carlota Landeros MD documented in this encounter Nursing Notes Gaby Mckeon CMA - 06/30/2017 2:00 PM CDT Chief Complaint Patient presents with ??? RECHECK Interstim follow up Gaby Mckeon documented in this encounter Plan of Treatment Upcoming Encounters Date Type Specialty Care Team Description 09/10/2022 Office Visit Internal Medicine Margot Branham MD [address] [id number] (Wo rk) documented as of this encounter Visit Diagnoses Diagnosis Urge incontinence of urine - Primary Urge incontinence Urinary urgency Urgency of urination documented in this encounter Care Teams Button Sewer Hand Relationship Specialty Start Date End Date Lisseth Vang MD PCP - General 04/13/16 11/14/[address] [place], [place] [address] Carlota Landeros MD MD Urology 04/10/[address] [place], [place] [address] Lisseth Vang MD PCP Family Practice 03/30/16 11/14/[address] [place], [place] [phone] Michelle Montana, RN Registered Nurse Urology 05/07/17 documented as of this encounter
--- OUTSIDE RECORDS SUMMARY | 2022-07-30 19:27 | XMS_ITS | Encounter Summary ---
:1945 Author Organization [facility] Address [address] [place] [address]. [place] [address] Care Team Providers Name Role Phone Lisseth Vang MD Primary Care Provider Carlota Landeros MD Unavailable Lisseth Vang MD Unavailable Michelle Montana RN Unavailable Reason for Visit Reason Onset Date Comments Pre Visit Planning - Unable To Reach 2017 Encounter Details Date Type Department Care Team Description 2017 PRE VISIT [facility] and Carlota Landeros P re Visit Planning - Inst for Prostate and MD Unable To Reach [facility]rolog[facility] [id number] [place] [address] [phone] Social History Tobacco Use Types Packs/Day Years Used Date Smoking Tobacco: Never Smokeless Tobacco: Never Alcohol Use Standard Drinks/Week Comments Yes 0 (1 standard drink = 0.6 oz pure alcoho l) wine few times/wk Sex Assigned at Date Recorded Female 12/20/2018 4:10 PM CDT documented as of this encounter Miscellaneous Notes Telephone Encounter - Nohemy Carpenter LPN - 2017 12:04 PM CST Unable to reach patient via phone to discuss upcoming appointment. Patient to come into clinic with full bladder for Flow/RU. AD PULLER documented in this encounter Plan of Treatment Upcoming Encounters Date Type Specialty Care Team Description 09/10/2022 Office Visit Internal Medicine Margot Branham MD [address] [address] (Wo rk) documented as of this encounter Visit Diagnoses Not on filedocumented in this encounter Care Teams Director Summer Sessions Relationship Specialty Start Date End Date Lisseth Vang MD PCP - General 04/13/16 11/14/[address] [place], [place] [phone] Carlota Landeros MD MD Urology 04/10/[address] [place], [place] [address] Lisseth Vang MD PCP Family Practice 03/30/16 11/14/[address] [place], [place] [address] Michelle Montana, RN Registered Nurse Urology 05/07/17 documented as of this encounter
--- OUTSIDE RECORDS SUMMARY | 2022-07-30 19:27 | XMS_ITS | Encounter Summary ---
:1945 Author Organization [facility] Address [address] [place] [address]. [place] [address] Care Team Providers Name Role Phone Lisseth Vang MD Primary Care Provider Carlota Acuña MD Unavailable Lisseth Vang MD Unavailable Michelle Montana RN Unavailable Anh Costa APRN AUDIO VISUAL COORDINATOR Unavailable Unavailable Reason for Visit Reason Comments New Patient Htn, Hyperlipidemia Encounter Details Date Type Department Care Team Description 04/07/2018 Office Visit [facility] Damian Villanueva, Hyper lipidemia, Heart Clinic Mateo OLIVEROS unspecified 909 [facility] [address] [place] [address] [facility] 508 (Primary Dx) [phone] [place], [place] [phone] Social History Tobacco Use Types Packs/Day Years Used Date Smoking Tobacco: Never Smokeless Tobacco: Never Alcohol Use Standard Drinks/Week Comments Yes 0 (1 standard drink = 0.6 oz pure alcoho l) wine few times/wk Sex Assigned at Date Recorded Female 12/20/2018 4:10 PM CDT documented as of this encounter Last Filed Vital Signs Vital Sign Reading Time Taken Comments Blood Pressure 127/78 04/07/2018 4:19 PM CDT Pulse 70 04/07/2018 4:19 PM CDT Temperature - - Respiratory Rate - - Oxygen Saturation 98% 04/07/2018 4:19 PM CDT Inhaled Oxygen Concentration - - Weight 79.3 kg (174 lb 14.4 oz) 04/07/2018 4:19 PM CDT Height 168.9 cm (5' 6.5) 04/07/2018 4:19 PM CDT Body Mass Index 27.81 04/07/2018 4:19 PM CDT documented in this encounter Patient Instructions Patient InstructionsDuncZonia shaw LPN - 04/07/2018 5:00 PM CDT Patient Instructions: It was a pleasure to see you in the cardiology clinic today. If you have any questions, you can reach my nurse, Zonia Morrissey LPN, at . Press Option #1 for the [facility], and then press Option #3 for nursing. We are encouraging the use of [employer] to communicate with your HealthCare Provider Medication Changes: - Start Atorvastatin 10 mg every day. Studies Ordered: None. The results from today include: None. Please follow up: With Anh Costa NP in the [facility]. Sincerely, Damian Villanueva MD If you have an urgent need after hours (8:00 am to 5:00 pm) please call [phone] and ask for thecardiology fellow pension consultant. documented in this encounter Progress Notes Damian Villanueva MD - 04/07/2018 5:00 PM CDT HPI: I had the privilege to evaluate and examine Mrs Yamileth Sheikh, who is a 72 year old year old female with a history of head tremor, hip replacement, bladder implant, high blood pressure hypertension and hyperlipidemia with elevated triglycerides. She has declined statin in the past for mixed hyperlipidemia with LDL up to 141 mg/dl and triglycerides up to 193. She is taking perindopril 4 mg per day but reports that she is having more difficulty with dry cough. ?? She recently joined an exercise facility and using biking, walking and doing a food journal with a goal of weight reduction to 150 pounds. ?? No chest pain or shortness of breath, no edema or palpitations Patient has had a [facility] CVD screening test in January 2018 - see Padilla NP([facility] CVD Prevention ). Patient wants to discuss her results regarding lipoprotien particles and arterial stiffness. PAST MEDICAL HISTORY: Past Medical History: Diagnosis [...] 3 ??? azelastine (ASTELIN) 0.1 % spray [place] 2 sprays into both nostrils 2 times [...] daily ??? fluticasone (FLONASE) 50 MCG/ACT spray [place] 2 sprays into both nostrils daily 1 [...] 3 ??? ipratropium (ATROVENT) 0.06 % spray [place] 2 sprays into both nostrils 4 times [...] ROCÍO stockings knee length USE DIRECTED . PAST SURGICAL HISTORY: Past Surgical History: Procedure [...] [facility] ALLERGIES Allergies Allergen Reactions ??? Codeine Nausea [...] Infarction Maternal Grandfather 82 of [place] ??? Cardiovascular Paternal Grandmother age 65 of heart problems ??? Pneumonia Paternal Grandfather age 70 after flu ??? No Known Problems Son SOCIAL HISTORY: Social History Social History ??? Marital status: Single Spouse name: N/A ??? Number of children: N/A ??? Years of education: N/A Occupational History ??? 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 [...] 1 son - - still working at [employer] - [place] as a second language - lives in [...] Negative Endocrinology: Negative Musculoskeletal: Negative EXAM: BP 127/78 (BP Location: Left arm, Patient Position: Chair, Cuff Size: Adult Regular) Pulse 70 Ht1.689 m (5' 6.5) Wt 79.3 kg (174 lb 14.4 oz) SpO2 98% BMI 27.81 kg/m2 In general, the patient is a [...] PT sites bilaterally. No bruits are noted. Neurologic: Alert and oriented to person/place/time, normal speech, gait and affect Skin: No petechiae, purpura or rash. Labs: LIPID RESULTS: Lab Results Component Value Date CHOL 243 (H) 07/22/2016 HDL 64 07/22/2016 LDL 141 (H) 07/22/2016 TRIG 193 (H) 07/22/2016 CHOLHDLRATIO 3.4 01/04/2015 NHDL 179 (H) 07/22/2016 LIVER ENZYME RESULTS: Lab Results Component Value Date AST 16 07/22/2016 ALT 21 07/22/2016 CBC RESULTS: Lab Results Component Value Date WBC 7.0 08/16/2012 RBC 4.87 08/16/2012 HGB 14.7 08/16/2012 HCT 43.4 08/16/2012 MCV 89 08/16/2012 MCH 30.2 08/16/2012 MCHC 33.9 08/16/2012 RDW 12.8 08/16/2012 PLT 191 08/16/2012 BMP RESULTS: Lab Results Component Value Date NA 138 03/25/2018 POTASSIUM 4.0 03/25/2018 CHLORIDE 105 03/25/2018 CO2 26 03/25/2018 ANIONGAP 7 03/25/2018 GLC 94 03/25/2018 BUN 12 03/25/2018 CR 0.87 03/25/2018 GFRESTIMATED 64 03/25/2018 GFRESTBLACK 77 03/25/2018 ASHLYN 9.1 03/25/2018 A1C RESULTS: Lab Results Component Value Date A1C 5.4 07/22/2016 Assessment and Plan: We discussed the results with patient: We discussed the importance of a heart healthy lifestyle and diet. We explained her the pathology of lipoprotein particles and CVD prediction as well the prognostic significance of arterial stiffness. We gave her scientific literature in order that she better understand these parameters. We continue with same medical regimens. Further follow-up with Nikky [place] NP in [facility]. Damian Villanueva MD, PhD millinery designer Division of Cardiology CC Patient Care Team: Lisseth Vang MD as PCP - General Carlota Acuña MD as MD (Urology) Lisseth Vang MD as PCP (Family Practice) Michelle Montana RN as Registered Nurse (Urology) Anh Costa APRN CNP as Nurse Practitioner (Nurse Practitioner) SELF, REFERRED Answers for HPI/ROS submitted by the patient on 04/07/2018 General Symptoms: No Skin Symptoms: Yes HENT Symptoms: No EYE SYMPTOMS: No HEART SYMPTOMS: No LUNG SYMPTOMS: No INTESTINAL SYMPTOMS: No URINARY SYMPTOMS: No GYNECOLOGIC SYMPTOMS: No BREAST SYMPTOMS: No SKELETAL SYMPTOMS: Yes BLOOD SYMPTOMS: No NERVOUS SYSTEM SYMPTOMS: No MENTAL HEALTH SYMPTOMS: No Changes in hair: No Changes in moles/ mohan: No Itching: No Rashes: No Changes in nails: No Acne: No Hair in places you don't want it: No Change in facial hair: No Warts: No Non-healing sores: No Scarring: No Flaking of skin: No Color changes of hands/feet in cold : No Sun sensitivity: No Skin thickening: No Back pain: No Muscle aches: No Neck pain: No Swollen joints: No Joint pain: No Bone pain: No Muscle cramps: Yes Muscle weakness: Yes Joint stiffness: No Bone fracture: No documented in this encounter Nursing Notes Phyllis Olmedo CMA - 04/07/2018 5:00 PM CDT Vitals completed successfully and medication reconciled. SMA Gina Chief Complaint Patient presents with ??? New Patient Htn, Hyperlipidemia Zonia Morrissey LPN - 04/07/2018 5:00 PM CDT Med Reconcile: Reviewed and verified all current medications with the patient. The updated medication list was printed and given to the patient. New Medication: Patient was educated regarding newly prescribed medication, including discussion of the indication, administration, side effects, and when to report to MD director of critical care. Patient demonstrated understanding of this information and agreed to call with further questions or concerns. Return Appointment: Patient given instructions regarding scheduling next clinic visit with [facility]. Patient demonstrated understanding of this information and agreed to call with further questions or concerns. Patient stated she understood all health information given and agreed to call with further questionsor concerns. Zonia Morrissey LPN documented in this encounter Plan of Treatment Upcoming Encounters Date Type Specialty Care Team Description 09/10/2022 Office Visit Internal Medicine [place], MD Margot [address] [place] [phone] (Wo rk) documented as of this encounter Visit Diagnoses Diagnosis Hyperlipidemia, unspecified hyperlipidem ia type - Primary documented in this encounter Additional Health Concerns Assessment Noted Time PHQ-9 Depression Total Score: 1 03/30/2018 7:10 AM CDT documented as of this encounter Care Teams Crate Repairer Relationship Specialty Start Date End Date Lisseth Vang MD PCP - General 04/13/16 11/14/[address] [place] [address] Carlota Acuña MD MD Urology 04/10/[address] [place] [address] Lisseth Vang MD PCP Family Practice 03/30/16 11/14/[address] [place] [address] Michelle Montana RN Registered Nurse Urology 05/07/17 Anh Costa APRN AUDIO VISUAL COORDINATOR Nurse Practitioner Nurse Practitioner 10/07 documented as of this encounter
--- OUTSIDE RECORDS SUMMARY | 2022-07-30 19:27 | XMS_ITS | Encounter Summary ---
:1945 Author Organization [facility] Address [address] [place] [address]. [place] [address] Care Team Providers Name Role Phone Shanell Baum MD Primary Care Provider Carlota Acuña MD Unavailable Shanell Baum MD Unavailable Michelle Montana RN Unavailable Anh Costa APRN LIVESTOCK SPECULATOR Unavailable Unavailable Reason for Visit Reason Comments Consult Establish care. Right great toe nail. Pt stated that she has had bilateral great toe nail removals in J anuary, 2017. Pt stated that she was told that she had an infection in the right great toe nail and has been taking fluconazole. Encounter Details Date Type Department Care Team Description 01/24/2018 Office Visit [facility] Orthopaedic Juan Antonio Dermato phytosis of nail Clinic CARSON Gallo (Primary Dx) [address] [place] [phone] Social History Tobacco Use Types Packs/Day Years Used Date Smoking Tobacco: Never Smokeless Tobacco: Never Alcohol Use Standard Drinks/Week Comments Yes 0 (1 standard drink = 0.6 oz pure alcoho l) wine few times/wk Sex Assigned at Date Recorded Female 12/20/2018 4:10 PM CDT documented as of this encounter Progress Notes Sabino Romano DPM - 01/24/2018 8:20 AM CDT Past Medical History: Diagnosis Date ??? Arthritis ??? Benign head tremor many years ??? Deviated nasal septum Dr [facility] ??? Elevated glucose 06/23/2016 [facility] ??? Fibroid uterus ??? H/O: varicose veins ??? Hyperlipidemia ASCVD risk 8.1%, declines statin ??? Labile hypertension no medication ??? Osteoarthritis right hip ??? Urinary problem 2010 has a bladder implant, interstim ??? Vitamin D deficiency Patient Active Problem List Diagnosis ??? Elevated [...] ACP (advance care planning) ??? Elevated glucose Past Surgical History: Procedure Laterality Date ??? [...] Nasal passages microwaved. Dr [facility]er ENT Social History Social History ??? Marital status: Single Spouse name: N/A ??? Number of children: N/A ??? Years of education: N/A Occupational History ??? 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 [...] 1 son - - still working at [employer] - [place] as a second language - lives in a house - retiring - March 2015 Family History Problem Relation Age of Onset [...] age 71 after flu ??? Parkinsonism Sister SUBJECTIVE FINDINGS: A 72-year-old female who presents for right hallux that is thick and dystrophic. She relates it does not hurt. She relates she has seen a physician about a year ago or so and had the hallux nail borders taken out permanently on both hallux and second toes and then the right one had a blood clot underneath it and started getting thick. She relates she was put on Diflucan. That mayhave helped some. She is not completely sure. No other specific relieving or aggravating factor. I reviewed notes from [facility] she had with her . OBJECTIVE FINDINGS: DP and PT are 2/4 right. She has dorsally contracted digits 1 through 5 bilaterally. She has right hallux nail that is thick, discolored with some dystrophy. She has some scaly dry skin on the end of the toe. No erythema, no drainage, no odor, no calor. ASSESSMENT AND PLAN: Onychomycosis, right hallux. Diagnosis and treatment options discussed with thepatient. Prescription for Loprox cream given and use discussed with her. She will return to clinic and see me in 3-4 months. Previous notes reviewed. documented in this encounter Nursing Notes Colleen Figueroa LPN - 01/24/2018 8:20 AM CDT Reason For Visit: Chief Complaint Patient presents with ??? Consult Establish care. Right great toe nail. Pt stated that she has had bilateral great toe nail removals in October,. Pt stated that she was told that she had an infection in the right great toe nail and has been taking fluconazole. PCP w/ Phone: SHANELL BAUM ([phone]) Pain Assessment Patient Currently in Pain: Denies Current Outpatient Prescriptions Medication Sig Dispense Refill ??? amoxicillin (AMOXIL) 500 MG capsule Take 2 capsules by mouth as needed 1 hour before dental procedures ??? azelastine (ASTELIN) 0.1 % spray [place] 2 sprays into both nostrils 2 times daily 90 mL 11 ??? B Complex Vitamins (VITAMIN-B COMPLEX PO) Take 1 tablet by mouth daily ??? BOOSTRIX 5-2.5-18.5 injection ??? Calcium-Magnesium (ASHLYN/MAG CITRATE) 250-125 MG TABS Take 4 capsules by mouth daily 120 tablet ??? cholecalciferol (VITAMIN D3) 1000 UNIT tablet Take 2 tablets by mouth daily. ??? estradiol (ESTRACE VAGINAL) 0.1 MG/GM cream Place 1 g vaginally three times a week Apply a smallamt externally to vulva three times weekly. 30 g 12 ??? estradiol (ESTRING) [address] 1 each vaginally every 3 months MD APPT./ ANNUAL EXAM FOR ANY REFILLS 1 each 0 ??? fish oil-omega-3 fatty acids (OMEGA 3) 1000 MG capsule Take 2 capsules by mouth 2 times daily. ??? fluticasone (FLONASE) 50 MCG/ACT spray [place] 2 sprays into both nostrils daily 1 Bottle 11 ??? FLUZONE HIGH-DOSE 0.5 ML injection ??? GARLIC PO Take 1 tablet by mouth 3 times daily ??? Adin, Zingiber officinalis, (ADIN PO) Take 2 capsules by mouth 3 times daily ??? Glucosamine-Chondroitin (GLUCOSAMINE CHONDR COMPLEX PO) Take 1 tablet by mouth. With MSN ??? hydrocortisone (ANUSOL-HC) 2.5 % rectal cream Place rectally 2 times daily (Patient not taking: Reported on 01/03/2018) 30 g 3 ??? ipratropium (ATROVENT) 0.06 % spray [place] 2 sprays into both nostrils 4 times daily as needed for rhinitis 1 Box 11 ??? LYSINE PO Take 1 capsule by mouth 2 times daily ??? Magnesium 200 MG TABS Take 4 tablets by mouth daily. ??? OTHER MEDICAL SUPPLIES ROCÍO stockings knee length USE DIRECTED . ??? Perindopril Erbumine 4 MG TABS Take 1 tablet by mouth daily 90 tablet 0 ??? Probiotic Product (PROBIOTIC DAILY PO) Take 1 capsule by mouth as needed ??? sulfamethoxazole-trimethoprim (BACTRIM DS/SEPTRA DS) 800-160 MG per tablet TK 1 T PO Q 12 HOURS FOR 5 DAYS 0 ??? TURMERIC PO Take 1 tablet by mouth 3 times daily ??? valACYclovir (VALTREX) 1000 mg tablet Take 1 tablet (1,000 mg) by mouth 3 times daily as needed (Patient not taking: Reported on 01/03/2018) 20 tablet 1 Allergies Allergen Reactions ??? Propofol Other (See Comments) and Nausea and Vomiting Other reaction(s): GI intolerance Extreme vertigo and nausea/vomiting ??? Codeine Nausea and Vomiting ??? Codeine Other reaction(s): GI intolerance ??? Morphine Nausea and Vomiting Other reaction(s): GI intolerance ??? Oxycodone Other (See Comments) ??? Latex Rash ??? Latex Rash ??? Nickel Rash ??? Tape [Adhesive Tape] Rash Including steri-strips documented in this encounter Plan of Treatment Upcoming Encounters Date Type Specialty Care Team Description 09/10/2022 Office Visit Internal Medicine Margot Branham MD [address] [place] [id number] (Wo rk) documented as of this encounter Visit Diagnoses Diagnosis Dermatophytosis of nail - Primary documented in this encounter Care Teams Supervisor Nurse Relationship Specialty Start Date End Date Shanell Baum MD PCP - General 04/13/16 11/14/[address] [place] [address] Carlota Acuña MD MD Urology 04/10/[address] [place], [place] [phone] Shanell Baum MD PCP Family Practice 03/30/16 11/14/[address] [place], [place] [id number] Michelle Montana RN Registered Nurse Urology 05/07/17 Anh Costa APRN LIVESTOCK SPECULATOR Nurse Practitioner Nurse Practitioner 10/07 documented as of this encounter
--- OUTSIDE RECORDS SUMMARY | 2022-07-30 19:27 | XMS_ITS | Encounter Summary ---
:1945 Author Organization [place] Address [address] [facility] [place] [address] Care Team Providers Name Role Phone Lisseth Vang MD Primary Care Provider Carlota Landeros MD Unavailable Lisseth Vang MD Unavailable Michelle Montana RN Unavailable Reason for Visit Reason Onset Date Comments Refill Request 07/27/2017 ipratriopium Encounter Details Date Type Department Care Team Description 07/27/2017 Refill [facility] Women's Nurse, [facility] Refill Request Clinic [place] (ipratriopium ) [address] [place] [facility] [address] [address] [place], [place] [phone] Social History Tobacco Use Types Packs/Day Years Used Date Smoking Tobacco: Never Smokeless Tobacco: Never Alcohol Use Standard Drinks/Week Comments Yes 0 (1 standard drink = 0.6 oz pure alcoho l) wine few times/wk Sex Assigned at Date Recorded Female 12/20/2018 4:10 PM CDT documented as of this encounter Miscellaneous Notes Telephone Encounter - Nicki Gracia RN - 07/27/2017 11:32 AM CDT Received refill request for nasal spray. Dr. Vang approved in clinic. Rx sent. documented in this encounter Plan of Treatment Upcoming Encounters Date Type Specialty Care Team Description 09/10/2022 Office Visit Internal Medicine Margot Branham MD [address] [id number] (Wo rk) documented as of this encounter Visit Diagnoses Diagnosis Chronic allergic rhinitis, unspecified s easonality, unspecified [...] deficiency documented in this encounter Care Teams Immigration Case Worker Relationship Specialty Start Date End Date Lisseth Vang MD PCP - General 04/13/16 11/14/[address] [place], [place] [address] Carlota Landeros MD MD Urology 04/10/[address] [place], [place] [address] Lisseth Vang MD PCP Family Practice 03/30/16 11/14/[address] [place], [place] [address] Michelle Montana, MODESTA Registered Nurse Urology 05/07/17 documented as of this encounter
--- OUTSIDE RECORDS SUMMARY | 2022-07-30 19:28 | XMS_ITS | Encounter Summary ---
:1945 Author Organization [place] Address [address] [place] [address]. [place] [address] Care Team Providers Name Role Phone Lisseth Vang MD Primary Care Provider Carlota Landeros MD Unavailable Luz Maria Kelly MD Unavailable Lisseth Vang MD Unavailable Reason for Visit Reason Onset Date Comments Pre Visit Planning - Done 02/01/2017 Encounter Details Date Type Department Care Team Description 02/01/2017 PRE VISIT [facility] and Carlota Landeros P re Visit Planning - Inst for Prostate and MD Done [facility] [address] [place] [address] [phone] Social History Tobacco Use Types Packs/Day Years Used Date Smoking Tobacco: Never Smokeless Tobacco: Never Alcohol Use Standard Drinks/Week Comments Yes 0 (1 standard drink = 0.6 oz pure alcoho l) wine few times/wk Sex Assigned at Date Recorded Female 12/20/2018 4:10 PM CDT documented as of this encounter Miscellaneous Notes Telephone Encounter - Nohemy Carpenter LPN - 02/01/2017 4:34 PM CDT Patient coming in for interstim check. Patient chart reviewed, no need for call, all records available and ready for appointment. documented in this encounter Plan of Treatment Upcoming Encounters Date Type Specialty Care Team Description 09/10/2022 Office Visit Internal Medicine Margot Branham MD [address] [address] (Wo rk) documented as of this encounter Visit Diagnoses Not on filedocumented in this encounter Care Teams Silver Lap Machine Tender Relationship Specialty Start Date End Date Lisseth Vang MD PCP - General 04/13/16 11/14/[address] [place], [place] [phone] Carlota Landeros MD MD Urology 04/10/[address] [place], [place] [address] Luz Maria Kelly MD MD Internal Medicine 03/27/16 02/22/17 Lisseth Vang MD PCP Family Practice 03/30/16 11/14/[address] [place], [place] [address] documented as of this encounter
--- OUTSIDE RECORDS SUMMARY | 2022-07-30 19:28 | XMS_ITS | Encounter Summary ---
:1945 Author Organization [place] Address [address] [place] [address]. [place] [address] Care Team Providers Name Role Phone Lisseth Vang MD Primary Care Provider Carlota Landeros MD Unavailable Lisseth Vang MD Unavailable Encounter Details Date Type Department Care Team Description 04/27/2017 Surgery [facility] Surgery and Carlota Landeros R eplacement of Left Procedure Center Interstim Battery [address] [facility] [place] [address] [place] Latex Allergy 5th [address] [place] [address] [phone] (Wo rk) Surgery Details Date/Time Status Location OR Service Patient Case Class Case Type Trauma Class Case? 04/27/17 11:00 Posted OR OR 03 Urology Same Day AM Surgery Panel 1 Procedure LRB Anes Op Region Wound Class Commen ts Replacement of Left Left MAC Sacrum I-Clean Repla cement of Left Interstim Battery Latex Interstim Battery Allergy Latex Allerg y Surgeon Surgeon Role Service Panel Carlota Landeros MD Primary Urology 1 Emmanuel Carr MD Resident - Assisting 1 Special Needs //Confirmed Nani Baer. lmLatex AllergyH&P to be Completed by Primary Care Physician documented in this encounter Social History Tobacco [...] Sign Reading Time Taken Comments Blood Pressure 122/74 04/27/2017 12:25 PM CDT Pulse 63 04/27/2017 12:25 PM CDT Temperature 36.6 ??C (97.8 ??F) 04/27/2017 12:25 PM CDT Respiratory Rate 16 04/27/2017 12:25 PM CDT Oxygen Saturation 98% 04/27/2017 12:25 PM CDT Inhaled Oxygen Concentration - - Weight 86.2 kg (190 lb) 04/27/2017 9:30 AM CDT Height 169.5 cm (5' 6.75) 04/27/2017 9:30 AM CDT Body Mass Index 29.98 04/27/2017 9:30 AM CDT documented in this encounter Discharge Instructions Discharge InstructionsDat-Demetris Sanders RN - 04/27/2017 12:26 PM CDT [facility] Ambulatory Surgery and Procedure Center [...] Do not make important or legal decisions. Tylenol/Acetaminophen Consumption To help encourage the safe [...] still not able to urinate (pass water). Your doctor is: Dr. Carlota Landeros, Prostate and Urology: [phone] Or dial [phone] and ask for the resident environmental health and safety intern for: Urology For emergency care, call the: [facility]: [phone] (TTY for hearing impaired: [phone]) documented in this encounter Medications at Time of Discharge Medication Sig Dispensed Refills Start Date End Date amoxicillin (AMOXIL) 500 Take 2 capsules by 0 MG capsule mouth as needed 1 hour before dental procedures cholecalciferol (VITAMIN Take 2 tablets by 0 D3) 1000 UNIT tablet mouth daily. OTHER MEDICAL SUPPLIES ROCÍO stockings knee 0 length USE DIRECTED . cephALEXin (KEFLEX) 500 Take 1 capsule (500 10 capsule 0 05/02/2017 MG capsuleIndications: mg) by mouth 2 times Overactive bladder daily for 5 days azelastine (ASTELIN) 0.1 [place] 2 sprays into 90 mL 1 01/03/2018 % sprayIndications: both nostrils 2 Seasonal allergic times daily rhinitis, unspecified allergic rhinitis trigger, Screen for colon cancer, Chronic rhinitis, Vaginal dryness, Atrophic vaginitis, Recurrent cold sores, Vitamin D deficiency B Complex Vitamins Take 1 tablet by 0 04/10/2019 (VITAMIN-B COMPLEX PO) mouth daily Calcium-Magnesium Take 4 capsules by 120 tablet 0 06/05/2015 04/10/2019 (ASHLYN/MAG CITRATE) mouth daily 250-125 MG TABSIndications: Warts, Seborrheic keratoses estradiol (ESTRACE Place 1 g vaginally 30 g 12 04/13/20 16 10/12/2017 VAGINAL) 0.1 MG/GM three times a week vaginal Apply a small amt creamIndications: externally to vulva Atrophic vaginitis, three times weekly. Screen for colon cancer, Seasonal allergies, Chronic rhinitis, Vaginal dryness, Recurrent cold sores, Vitamin D deficiency estradiol (ESTRING) [address] 1 each 1 each 0 7 10/08/2017 vaginal ringIndications: vaginally every 3 Vaginal dryness, Screen months MD APPT./ for colon cancer, ANNUAL EXAM FOR ANY Seasonal allergies, REFILLS Chronic rhinitis, Atrophic vaginitis, Recurrent cold sores, Vitamin D deficiency, Hyperlipidemia fish oil-omega-3 fatty Take 1 capsule by 0 04/10/2019 acids (OMEGA 3) 1000 MG mouth 2 times daily capsule fluconazole (DIFLUCAN) Take 1 tablet by 0 06/23/ 016 12/07/2017 200 MG mouth once a week tabletIndications: Essential hypertension with goal blood pressure less than 140/90, Hyperlipidemia LDL goal <100, Other specified peripheral vascular diseases (H), Vitamin D deficiency fluticasone (FLONASE) 50 [place] 2 sprays into 1 Bottle 1 01/03/2018 MCG/ACT both nostrils daily sprayIndications: Chronic rhinitis FLUZONE HIGH-DOSE 0.5 ML 0 06/11/2015 01/24/2018 injection GARLIC PO Take 1 tablet by 0 04/10/20 19 mouth 3 times daily Tricia, Zingiber Take 1 capsule by 0 0 04/10/2019 officinalis, (TRICIA PO) mouth daily Glucosamine-Chondroitin Take 1 tablet by 0 04/10/2019 (GLUCOSAMINE CHONDR mouth. With MSN COMPLEX PO) hydrocortisone Place rectally 2 30 g 3 08/18/201611/04 (ANUSOL-HC) 2.5 % rectal times daily creamIndications: External hemorrhoids ipratropium (ATROVENT) [place] 2 sprays into 1 Box 6 05/201607/27/2017 0.06 % nasal both nostrils 4 sprayIndications: times daily as Chronic rhinitis, Screen needed for rhinitis for colon cancer, Seasonal allergies, Vaginal dryness, Atrophic vaginitis, Recurrent cold sores, Vitamin D deficiency, Hyperlipidemia, unspecified hyperlipidemia LYSINE PO Take 1 capsule by 0 019 mouth 2 times daily Magnesium 200 MG TABS Take 4 tablets by 0 04/10/2019 mouth daily. Multiple Take 1 tablet by 0 05/19/20 17 Vitamins-Minerals mouth Without iron (MATURE BALANCE PO)Indications: Hypertension, Vitamin deficiency Perindopril Erbumine 4 Take 1 tablet by 90 tablet 3 016 09/16/2017 MG TABSIndications: mouth daily Hypertensive heart disease without heart failure Probiotic Product Take 1 capsule by 0 12/09/2020 (PROBIOTIC DAILY PO) mouth as needed senna-docusate Take 1-2 tablets by 30 tablet 0 04/27/2017 0 05/19/2017 (SENOKOT-S;PERICOLACE) mouth 2 times daily 8.6-50 MG per To prevent tabletIndications: constipation while Overactive bladder taking narcotic pain medication. TURMERIC PO Take 1 tablet by 0 019 mouth 2 times daily valACYclovir (VALTREX) Take 1 tablet (1,000 20 tablet 1 05/201607/07/2018 1000 mg mg) by mouth 3 times tabletIndications: daily as needed Recurrent cold sores, Screen for colon cancer, Seasonal allergies, Chronic rhinitis, Vaginal dryness, Atrophic vaginitis, Vitamin D deficiency, Hyperlipidemia, unspecified hyperlipidemia documented as of this encounter Miscellaneous Notes Op Note - Carlota Landeros MD - 04/27/2017 11:15 AM CDT OPERATIVE REPORT PREOPERATIVE DIAGNOSIS: Urinary urgency and frequency, Interstim device with battery POSTOPERATIVE DIAGNOSIS: Same PROCEDURES PERFORMED: 1. Replacement of interstim battery STAFF SURGEON: Dr. Carlota Landeros MD, available for entire case. RESIDENT(S): Emmanuel Carr MD ANESTHESIA: Monitor Anesthesia Care ESTIMATED BLOOD LOSS: 5 mL. DRAINS: None FINDINGS: Good impedance check with the new battery. OPERATIVE INDICATIONS: Yamileth Sheikh is a(n) 71 year old female with a history of urinary urgency and frequency s/p Interstim device placement in 2010. She has had good response to this, however she recently presented to clinic reporting she no longer feels the stimulator. On interrogation the batter was noted to be . The patient was counseled on the alternatives, risks, and benefits and elected to proceed with the above stated procedure. DESCRIPTION OF PROCEDURE: After verification of informed consent was obtained, the patient was brought to the operating room, and moved to the operating table. After adequate anesthesia was induced, the patient was repositionedin the prone position and prepped and draped in the usual sterile fashion. A formal timeout was performed to confirm the correct patient, procedure and operative site. Marcaine was injected into the skin over the planned incision. An incision was made over the previous generator and electrocautery was used to dissect down to the device. It was pulled out of the incision and disconnected from the leads. A new device was connected to the leads. The device was interrogated with normal response. The previous device pocket was irrigated with antibiotic solution and the new device was placed into the pocket, making sure it lay flat. We then closed the fascia with interrupted vicryl sutures and subcutaneous tissue with interrupted vicryl sutures. The skin was closed in a subcuticular fashion with running vicryl suture. Dermabond was used over the skin followed by a primapore dressing. The procedure was then concluded. The patient was transferred to the postanesthesia care unit in stable condition and tolerated the procedure well. POSTOP PLAN: 1. Follow-up with Dr. Landeros in 2 weeks Patient was seen, evaluated and plan was formulated in conjunction with me and I agree with the above. I was present for the entire procedure. Carlota Landeros MD documented in this encounter Plan of Treatment Upcoming Encounters Date Type Specialty Care Team Description 09/10/2022 Office Visit Internal Medicine Margot Branham MD [address] [id number] (Wo rk) documented as of this encounter Procedures Procedure Name Priority Date/Time Associated Diagnosis Comme nts REPLACEMENT, PULSE 04/27/2017 11:15 AM Urinary Urgency and GENERATOR, NEUROSTIMULATOR CDT Urge Incontine nce Special Needs //Confirmed Nani Bear. 04/23 lmLatex AllergyH&P to be Completed by Primary Care Physician EKG CARDIAC - HIM SCAN 09/01/2007 12:00 AM OUTSOLE COMPRESSOR documented in this encounter Results EKG CARDIAC - HIM SCAN (09/01/2007 12:00 AM OUTSOLE COMPRESSOR) Specimen (Source) Anatomical Location Collection Method / Collectio n Time Received Time / Laterality Volume 09/01/2007 Narrative This result has an attachment that is no t available. Provider Scan ECG ORDERABLES documented in this encounter Visit Diagnoses Not on filedocumented in this encounter Administered Medications Inactive Administered Medications - up to 3 most recent administrations Medication Order MAR Action Action Date Dose Rate Site bupivacaine (MARCAINE) Given 04/27/2017 12:00 12 mLs Operative 0.25 % injection PM CDT Site/Surgical S ite PRN, Starting on Wed04/27/17 at 1200, Intra-procedure lactated ringers infusion New Bag 04/27/2017 10:37 AM CDT 25 mL/hr at 25 mL/hr, Intravenous, CONTINUOUS, IF patient NOT on dialysis., Pre-procedure, Starting on Wed04/27/17 at 0945, Until Wed04/27/17 at 1224 scopolamine (TRANSDERM) 1 Given 04/27/2017 10:43 AM CDT 1 patch Behind Right Ear MG/3DAYS 72 hr patch 1 patch 1 patch, Transdermal, ONCE, On Wed04/27/17 at 1045, For 1 dose, Apply patch to skin, behind ear. Place in Pre-Op. Remove after 24 hours. Each 1.5 mg patch delivers 1 mg of scopolamine., Pre-procedure documented in this encounter Care Teams Wire Coiler Machine Operator Relationship Specialty Start Date End Date Lisseth Vang MD PCP - General 04/13/16 11/14/[address] [place] [address] Carlota Landeros MD MD Urology 04/10/[address] [place], [place] [address] Lisseth Vang MD PCP Family Practice 03/30/16 11/14/[address] [place], [place] [phone] documented as of this encounter
--- OUTSIDE RECORDS SUMMARY | 2022-07-30 19:28 | XMS_ITS | Encounter Summary ---
:1945 Author Organization [place] Address [address] [place] [address]. [place] [address] Care Team Providers Name Role Phone Lisseth Vang MD Primary Care Provider Carlota Landeros MD Unavailable Lisseth Vang MD Unavailable Reason for Visit Reason Comments Medication Refill estradiol (ESTRING) 2 MG Encounter Details Date Type Department Care Team Description 02/23/2017 Refill [facility] MD Juvencio (estradiol (ESTRING) 2 9 [facility] [address] [place] [address] ) [address] [place], [place] [address] [phone] Social History Tobacco Use Types Packs/Day Years Used Date Smoking Tobacco: Never Smokeless Tobacco: Never Alcohol Use Standard Drinks/Week Comments Yes 0 (1 standard drink = 0.6 oz pure alcoho l) wine few times/wk Sex Assigned at Date Recorded Female 12/20/2018 4:10 PM CDT documented as of this encounter Miscellaneous Notes Telephone Encounter - Sydnie Granger RN - 02/26/2017 9:32 AM CDT estradiol (ESTRING) 2 MG Last Written Prescription Date: 01/10/16 Last Fill Quantity: 1, # refills: 4 Last Office Visit : 04/13/16 Future Office visit: NONE documented in this encounter Plan of Treatment Upcoming Encounters Date Type Specialty Care Team Description 09/10/2022 Office Visit Internal Medicine Margot Branham MD [address] [address] (Wo rk) documented as of this encounter Visit Diagnoses Diagnosis Vaginal dryness Other specified symptom associated with female genital organs Screen for colon cancer Special screening for malignant neoplasm s, colon Seasonal allergies Allergic rhinitis, cause unspecified Chronic rhinitis Atrophic vaginitis Postmenopausal atrophic vaginitis Recurrent cold sores Herpes simplex without mention of compli cation Vitamin D deficiency Unspecified vitamin D deficiency Hyperlipidemia Other and unspecified hyperlipidemia documented in this encounter Care Teams Decontaminator Relationship Specialty Start Date End Date Lisseth Vang MD PCP - General 04/13/16 11/14/[address] [place], [place] [phone] Carlota Landeros MD MD Urology 04/10/[address] [place], [place] [address] Lisseth Vang MD PCP Family Practice 03/30/16 11/14/[address] [place], [place] [phone] documented as of this encounter
--- OUTSIDE RECORDS SUMMARY | 2022-07-30 19:28 | XMS_ITS | Encounter Summary ---
:1945 Author Organization [facility] Address [address] [place] [address]. [place] [address] Care Team Providers Name Role Phone Lisseth Vang MD Primary Care Provider Carlota Landeros MD Unavailable Lisseth Vang MD Unavailable Encounter Details Date Type Department Care Team Description 04/27/2017 Anesthesia Event [facility] Jody Elizondo [facility] MD Mark [address] [place] [address] [address] [place] [address] Anesthesia Record Procedure Summary Procedure Name Responsible Anesthesia Start Anesthesia Stop Anesthesiologist Time Time Replacement of Left Marianna Elizondo 04/27/17 1115 1214 Interstim Battery MD Mark Latex Allergy (Left: Sacrum) Events Date Time Event Comment 04/27/2017 1040 1115 An Start 1118 An Start Data 1137 AN INCISION 1209 an stop data 1214 An Stop Electronically s igned by Twyla Dickey on April 27, 2017 12:14 PM Name Total midazolam 1mg/mL 4 mg fentaNYL (SUBLIMAZE) injection 100 mcg dexamethasone 4mg/mL 4 mg ondansetron 2mg/mL 4 mg ceFAZolin (ANCEF) intermittent infusion 2 g in dextros e PREMIX 2 g lactated ringers infusion 700 mL Agents Name NO HELIOX O2 N2O Air Exp Sevoflurane Exp Isoflurane Exp Desflurane Exp N2O O2 Delivery Device Ins Sevoflurane Ins Isoflurane Ins Desflurane O2 Auxiliary Blood No blood administrations on file. Lines, Drains, and Airways Type Details Placement Removal Incision/Surgical Site 04/27/17; 1141; Left; 04/27/17 1141 by Buttocks Jarred Warner RN Peripheral IV 04/27/17; 1035; 20 G; 04/27/17 1035 by 04/27/17 1241 by Right; Lower forearm; Padma Benjamin RN [place] -Page, Chlorhexidine; None; Demetris Pulliam RN Tolerated well documented in this encounter Social History Tobacco Use Types Packs/Day Years Used Date Smoking Tobacco: Never Smokeless Tobacco: Never Alcohol Use Standard Drinks/Week Comments Yes 0 (1 standard drink = 0.6 oz pure alcoho l) wine few times/wk Sex Assigned at Date Recorded Female 12/20/2018 4:10 PM CDT documented as of this encounter OR Notes Anesthesia Postprocedure Evaluation - Marianna Elizondo MD - 04/27/2017 12:58 PM CDT Patient: Yamileth [place] Procedure(s): Replacement of Left Interstim Battery Latex Allergy - Wound Class: I-Clean Diagnosis:Urinary Urgency and Urge Incontinence Diagnosis Additional Information: No value filed. Anesthesia Type: MAC Note: Anesthesia Post Evaluation Patient location during evaluation: Phase 2 Patient participation: Able to fully participate in evaluation Level of consciousness: awake and alert Pain management: adequate Airway patency: patent Cardiovascular status: acceptable Respiratory status: acceptable Hydration status: acceptable PONV: none Anesthetic complications: None Comments: Patient discharged prior to my final evaluation. Chart reviewed and no anesthetic issues identified. Discharge criteria met. Last vitals: Vitals: 04/27/17 0930 04/27/17 1210 04/27/17 1225 BP: 133/79 127/76 122/74 Pulse: 64 63 Resp: 16 16 16 Temp: 37 ??C (98.6 ??F) 36.6 ??C (97.8 ??F) 36.6 ??C (97.8 ??F) SpO2: 96% 95% 98% Electronically Signed By: Marianna Hull MD April 27, 2017 12:58 PM Anesthesia Preprocedure Evaluation - Marianna Elizondo MD - 04/27/2017 7:22 AM CDT Anesthesia Evaluation . Pt has had prior anesthetic. Type: General and MAC History of anesthetic complications - PONV vertigo ROS/MED HX ENT/Pulmonary: Neurologic: Comment: Meniere's Disease Cardiovascular: (+) hypertension----. : . . . :. . METS/Exercise Tolerance: Hematologic: Musculoskeletal: GI/Hepatic: Renal/Genitourinary: Endo: Comment: BMI 30.73 (+) Obesity, . Psychiatric: Infectious Disease: Malignancy: Other: Physical Exam Normal systems: dental Airway Mallampati: II TM distance: >3 FB Neck ROM: full Dental Cardiovascular Pulmonary Anesthesia Plan History & Physical Review History and physical reviewed and following examination; no interval change. ASA Status: 2 . NPO Status: > 2 hours and > 6 hours Plan for MAC Maintenance will be Other. Reason for MAC: Deep or markedly invasive procedure (G8) States she has a propofol allergy and had severe vertigo for a day following a previous surgery whenthis was used. Will plan for versed, fentanyl, zofran, decadron. Scop patch placed preoperatively. Patient requested this. Postoperative Care Consents Anesthetic plan, risks, benefits and alternatives discussed with: Patient.. . documented in this encounter Miscellaneous Notes Anesthesia Care Transfer Note - Twyla Dickey APRN CRNA - 04/27/2017 12:14 PM CDT Patient: Yamileth Greene Kori Procedure(s): Replacement of Left Interstim Battery Latex Allergy - Wound Class: I-Clean Diagnosis: Urinary Urgency and Urge Incontinence Diagnosis Additional Information: No value filed. Anesthesia Type: MAC Note: Airway :Room Air Patient transferred to:Phase II Comments: 97% 127/76 97.8 c- 68- 16 Vitals: (Last set prior to Anesthesia Care Transfer) PATEL VITALS 04/27/2017 1139 - 04/27/2017 1214 04/27/2017 Resp Rate (set): 10 Electronically Signed By: Twyla Dickey APRN CRNA April 27, 2017 12:14 PM documented in this encounter Plan of Treatment Upcoming Encounters Date Type Specialty Care Team Description 09/10/2022 Office Visit Internal Medicine Margot Branham MD [address] [address] (Wo rk) documented as of this encounter Visit Diagnoses Not on filedocumented in this encounter Administered Medications Inactive Administered Medications - up to 3 most recent administrations Medication Order MAR Action Action Date Dose Rate Site ceFAZolin (ANCEF) intermittent Given 04/27/2017 11:12 AM CDT 2 g infusion 2 g in dextrose PREMIX Routine, 2 g, Intravenous, PRE-OP/PRE-PROCEDURE, Starting on Wed04/27/17 at 0932, For 1 dose, Give first dose within 1 hour PRIOR to incision. If patient weight is greater than or equal to 120 kg increase dose to 3 g., Indications: Perioperative Pharmacoprophylaxis, Pre-procedure dexamethasone (DECADRON) injection Given 04/27/2017 11:30 AM CDT 4 mg Intravenous, PRN, Administer over 1-4 Minutes, Starting on Wed04/27/17 at 1130, Anesthesia Intra-op fentaNYL (PF) (SUBLIMAZE) injection Given 04/27/2017 11:35 AM CDT 50 mcg Intravenous, PRN, moderate to severe pain, Starting on Wed04/27/17 at 1122, Anesthesia Intra-op Given 04/27/2017 11:22 AM CDT 50 mcg midazolam (VERSED) injection Given 04/27/2017 11:42 AM CDT 1 mg Intravenous, PRN, anxiety, Starting on Wed04/27/17 at 1135, Anesthesia Intra-op Given 04/27/2017 11:35 AM CDT 1 mg Given 04/27/2017 11:19 AM CDT 2 mg ondansetron (ZOFRAN) injection Given 04/27/2017 11:54 AM CDT 4 mg Intravenous, PRN, nausea, vomiting, Administer over 2-5 Minutes, Starting on Wed04/27/17 at 1154, Anesthesia Intra-op documented in this encounter Care Teams Mortgage Broker Relationship Specialty Start Date End Date iLsseth Vang MD PCP - General 04/13/16 11/14/[address] [place], [place] [id number] Carlota Landeros MD MD Urology 04/10/[address] [place], [place] [address] Lisseth Vang MD PCP Family Practice 03/30/[address] [place], [place] [address] documented as of this encounter
--- OUTSIDE RECORDS SUMMARY | 2022-07-30 19:28 | XMS_ITS | Encounter Summary ---
:1945 Author Organization [facility] Address [address] [facility] [place] [address] Care Team Providers Name Role Phone Lisseth Vang MD Primary Care Provider Carlota Landeros MD Unavailable Luz Maria Kelly MD Unavailable Lisseth Vang MD Unavailable Reason for Referral Audiology - Closed Specialty Diagnoses / Procedures Referred By Contact Refer red To Contact Diagnoses Hearing loss, unspecified laterality Lisseth Vang MD [address] [place], [place] [address] Referral ID Status Reason Start Date Expiration Date Visits Requ ested Visits Authorized [id number] Closed 01/28/2017 01/28/2018 1 1 Encounter Details Date Type Department Care Team Description 01/28/2017 Orders Only [facility] Allie Vang lo , [facility] MD Lisseth unspecified laterality [place] [address] (Primary Dx) [employer] [address] [place], [place] 3RD FLR,[id number] [phone] [facility] [address] (Work) [place], [place] [address] [phone] Social History Tobacco Use Types Packs/Day Years [...] Internal Medicine Margot Branham MD [address] [address] (Wo rk) Scheduled Referrals Name Type Priority Associated Diagnoses Order S chedule AUDIOLOGY ADULT Referral Routine Hearing loss, Ordered: REFERRAL unspecified laterality documented as of this encounter Visit Diagnoses Diagnosis Hearing loss, unspecified laterality - P rimary documented in this encounter Care Teams Freight Inspector Relationship Specialty Start Date End Date Lisseth Vang MD PCP - General 04/13/16 11/14/[address] [place], [place] [address] Carlota Landeros MD MD Urology 04/10/[address] [place], [place] [address] Luz Maria Kelly MD MD Internal Medicine 03/27/16 02/22/17 Lisseth Vang MD PCP Family Practice 03/30/16 11/14/[address] [place], [place] [address] documented as of this encounter
--- OUTSIDE RECORDS SUMMARY | 2022-07-30 19:28 | XMS_ITS | Encounter Summary ---
:1945 Author Organization [facility] Address [address] [place] [address]. 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 ease without heart Prevention failure (Primary Dx) [address] [place] [address] Social History Tobacco Use Types Packs/Day [...] Visit Internal Medicine LogeaMargot man MD [address] [address] (Wo rk) documented as of this encounter Visit Diagnoses Diagnosis Hypertensive heart disease without heart failure - Primary Unspecified hypertensive heart disease w ithout heart failure documented in this encounter Care Teams Farm Hand Relationship Specialty Start Date End Date Lisseth Vang MD PCP - General 04/13/16 11/14/[address] [place], [place] [phone] Carlota Landeros MD MD Urology 04/10/[address] [place], [place] [phone] Luz Maria Kelly MD MD Internal Medicine 03/27/16 02/22/17 Lisseth Vang MD PCP Family Practice 03/30/16 11/14/[address] [place] [address] documented as of this encounter
--- OUTSIDE RECORDS SUMMARY | 2022-07-30 19:28 | XMS_ITS | Encounter Summary ---
:1945 Author Organization [facility] Address [address] [place] [address]. [place] [address] Care Team Providers Name Role Phone Lisseth Vang MD Primary Care Provider Carlota Landeros MD Unavailable Lisseth Vang MD Unavailable Michelle Montana RN Unavailable Reason for Visit Reason Onset Date Comments Pre Visit Planning - Done 06/28/2017 Encounter Details Date Type Department Care Team Description 06/28/2017 [facility] VISIT [facility] and Carlota Landeros P re Visit Planning - Inst for Prostate and MD Done Urologic [facility] [address] [place] [address] [phone] Social History Tobacco Use Types Packs/Day Years Used Date Smoking Tobacco: Never Smokeless Tobacco: Never Alcohol Use Standard Drinks/Week Comments Yes 0 (1 standard drink = 0.6 oz pure alcoho l) wine few times/wk Sex Assigned at Date Recorded Female 12/20/2018 4:10 PM CDT documented as of this encounter Miscellaneous Notes Telephone Encounter - Nohemy Carpenter LPN - 06/28/2017 10:35 AM CDT Patient with history of Interstim coming in for consult with Interstim Rep. Rep comfirmed. Patient chart reviewed, no need for call, all records available and ready for appointment. 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
--- OUTSIDE RECORDS SUMMARY | 2022-07-30 19:28 | XMS_ITS | Encounter Summary ---
:1945 Author Organization [facility] Address [address] [place] [address]. 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 Hyp erlipidemia LDL goal <100; Prevention Other specified peripheral v ascular diseases (H) ; [facility] Vitamin D deficiency [address] [place] [address] Social History Tobacco Use Types Packs/Day Years Used Date Smoking Tobacco: Never Smokeless Tobacco: Never Alcohol Use Standard Drinks/Week Comments Yes 0 (1 standard drink = 0.6 oz pure alcoho l) wine few times/wk Sex Assigned at Date Recorded Female 12/20/2018 4:10 PM CDT documented as of this encounter Last Filed Vital Signs Vital Sign Reading Time Taken Comments Blood Pressure 149/81 07/24/2016 7:58 AM CDT Pulse 68 07/24/2016 7:58 AM CDT Temperature - - Respiratory Rate - - Oxygen Saturation 98% 07/24/2016 7:58 AM CDT Inhaled Oxygen Concentration - - Weight 79.3 kg (174 lb 12.8 oz) 07/24/2016 7:58 AM CDT Height 170.2 cm (5' 7) 07/24/2016 7:58 AM CDT Body Mass Index 27.38 07/24/2016 7:58 AM CDT documented in this encounter Progress Notes Anh Costa, CLAUDIA FLOORING MACHINE OPERATOR - 07/24/2016 8:11 AM CDT Active Problems Patient Active Problem List Diagnosis Date Noted ??? Vitamin D deficiency Priority: Medium ??? Elevated glucose Priority: Medium ??? ACP (advance care planning) 04/15/2015 Advance Care Planning 04/21/2016: Receipt of ACP [...] ??? Disorder of bone and cartilage 01/08/2015 Problem list name updated by automated process. Provider to review ??? Lump or mass in breast 12/06/2013 ??? Muscle weakness 10/07/2012 ??? Mixed incontinence 10/07/2012 ??? Hypertension 08/15/2012 ??? Osteopenia 08/15/2012 ??? Atrophic vaginitis 08/15/2012 ??? Hemorrhoids 05/02/2012 ??? Anal fissure 05/02/2012 ??? Tinnitus of both ears 04/21/2012 ??? Urinary retention 04/02/2011 ??? Urgency of urination 04/02/2011 ??? Mixed incontinence urge and stress (male)(female) 04/02/2011 ??? CARDIOVASCULAR SCREENING; LDL GOAL LESS THAN 130 08/03/2010 ??? Elevated blood pressure reading without diagnosis of hypertension 09/23/2009 Reason For Visit Patient here for [facility] early detection of atherosclerosis and CVD exam. Pain Evaluation Current history of pain associated with this visit is as follows denied RITO Yamileth Sheikh is a 70 year old year old female with a history of high blood pressure hypertension and hyperlipidemia with elevated triglycerides. She began taking perindopril 2 mg per day for hypertension and reduced arterial compliance last year and is tolerating this well. She does report an infrequent cough but not consistent with KAILYN cough at this time. She was seen in [facility] in June for hysteroscopy and was found to have a reduced GFR of 55 with normal creatinine of 1.0 and elevated glucose of 110. She was concerned about the potential onset for renal disease. She has declined statin and her two previous LDL's have been under 130 mg/dl. Her mother lived to be 93 and had elevated cholesterol so she believes she will also do well. When she had her surgery she quit taking her supplements including fish oil and has not restarted them. She otherwise feels well with no chest pain, shortness of breath or palpitation. She has some varicose veins and does use compression socks at times. Nutrition assessment per patient report: Her nutrition is generally heart heathy and is aware that low fiber carbs can increase triglycerides. Foods with fat/cholesterol (fried foods, fatty meats, junk food): 0 per day. Fruits and vegetables (?? cup cooked, 1 cup raw): 4-6 servings per day. Caffeine (1 cup coffee, soda etc.). 2 servings per day of coffee. Alcohol servings (12 oz. beer, 4 oz. wine, 1?? oz. in mixed drink) . 1 servings per day. Calcium servings (dairy foods, 8 oz. milk, yogurt, cheese, ice cream) 2 servings per day mostly milk. I add salt to my food and or eat salty prepared foods:light. Special dietary habits:none. Activity: Patient is active 3-4 times per week, for 60 minutes. We discussed laboratory results today including lipids targets and how foods influences cholesterol. Weight: Body mass index is 27.37 kg/(m^2). A normal BMI of 25 is equal to 159 pounds. A weight reduction speed of two pounds per month is recommended. . PMH Past Medical History Diagnosis Date ??? Fibroid uterus ??? Deviated nasal septum Dr Baer ENT ??? Osteoarthritis right hip ??? Labile hypertension no medication ??? Urinary problem 2010 has a bladder implant, interstim ??? Hyperlipidemia ASCVD risk 8.1%, declines statin ??? Elevated glucose 06/23/2016 [facility] ??? Arthritis ??? H/O: varicose veins ??? Benign head tremor many years ??? Vitamin D deficiency PSH Past Surgical History Procedure Laterality Date ??? C/section, classical 1978 , Classical ??? Cl aff surgical pathology 1989 Breast Reduction ??? Breast biopsy, rt/lt Breast Biopsy RT/LT ??? Surgical history of - ? Nasal passages microwaved. Dr Baer ENT ??? Mammoplasty reduction ??? Implant stimulator and leads sacral nerve (stage one and two) 05/19/2011 Procedure:IMPLANT STIMULATOR AND LEADS SACRAL NERVE (STAGE ONE AND TWO); Surgeon:CARLOTA ACUÑA;Location:[facility] OR ??? Hc colonoscopy thru stoma, diagnostic +FHx 2007 ??? Hrw vein stripper Left 1996 ??? Arthroplasty hip right ??? Cystoscopy, sling transvaginal N/A 03/26/2015 Procedure: CYSTOSCOPY, SLING TRANSVAGINAL; Surgeon: Carlota Acuña MD; Location: [facility] OR ??? Hysteroscopy 06-24-2016 Current Meds Current Outpatient Prescriptions Medication Sig Dispense Refill ??? fluconazole (DIFLUCAN) 200 MG tablet Take 1 tablet by mouth once a week ??? hydrocortisone-pramoxine (PROCTOFOAM-HC) rectal foam Place 1 applicator rectally 2 times daily 10 g 1 ??? Perindopril Erbumine 2 MG TABS Take 1 tablet by mouth daily 90 tablet 3 ??? fluticasone (FLONASE) 50 MCG/ACT nasal spray ??? FLUZONE HIGH-DOSE 0.5 ML injection ??? estradiol (ESTRACE VAGINAL) 0.1 MG/GM vaginal cream Place 1 g vaginally three times a week Applya small amt externally to vulva three times weekly. 30 g 12 ??? azelastine (ASTELIN) 0.1 % nasal spray [place] 1-2 sprays into both nostrils daily as needed 90 mL1 ??? ipratropium (ATROVENT) 0.06 % nasal spray [place] 2 sprays into both nostrils 4 times daily as needed for rhinitis 1 Box 6 ??? estradiol (ESTRING) [address] 1 each vaginally every 3 months 1 each 4 ??? valACYclovir (VALTREX) 1000 mg tablet Take 1 tablet (1,000 mg) by mouth 3 times daily as needed 20 tablet 1 ??? Calcium-Magnesium (ASHLYN/MAG CITRATE) 250-125 MG TABS Take 4 capsules by mouth daily 120 tablet ??? amoxicillin (AMOXIL) 500 MG capsule Take 2 capsules by mouth as needed 1 hour before dental procedures ??? Probiotic Product (PROBIOTIC DAILY PO) Take 1 capsule by mouth as needed ??? Adin, Zingiber officinalis, (ADIN PO) Take 2 capsules by mouth 3 times daily ??? GARLIC PO Take 1 tablet by mouth 3 times daily ??? TURMERIC PO Take 1 tablet by mouth 3 times daily ??? Multiple Vitamins-Minerals (MATURE BALANCE PO) Take 1 tablet by mouth Without iron ??? B Complex Vitamins (VITAMIN-B COMPLEX PO) Take 1 tablet by mouth daily ??? LYSINE PO Take 1 capsule by mouth 2 times daily ??? Glucosamine-Chondroitin (GLUCOSAMINE CHONDR COMPLEX PO) Take 1 tablet by mouth. With MSN ??? Magnesium 200 MG TABS Take 4 tablets by mouth daily. ??? fish oil-omega-3 fatty acids (OMEGA 3) 1000 MG capsule Take 2 capsules by mouth 2 times daily. ??? OTHER MEDICAL SUPPLIES ROCÍO stockings knee length USE DIRECTED . ??? cholecalciferol (VITAMIN D3) 1000 UNIT tablet Take 2 tablets by mouth daily. Allergies Allergies Allergen Reactions ??? Propofol Other (See Comments) and Nausea and Vomiting Extreme vertigo and nausea/vomiting ??? Codeine Nausea and Vomiting ??? Morphine Nausea and Vomiting ??? Latex Rash ??? Nickel Rash ??? Tape [Adhesive Tape] Rash Including steri-strips Family Hx Family History Problem Relation Age of Onset ??? Cancer - colorectal Mother colon polyps, age 93 ??? Cardiovascular Father CHF age 79, hx of PE and HTN ??? Hypertension Father ??? CANCER Maternal Grandmother 84 of pancreatic cancer ??? Myocardial Infarction Maternal Grandfather 82 of [place] ??? Cardiovascular Paternal Grandmother age 65 of heart problems ??? Pneumonia Paternal Grandfather age 70 after flu ??? CANCER Sister uterine cancer ??? 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 Enjoyment of life is 10 with 10 enjoys life fully. History Smoking status ??? Never Smoker Smokeless tobacco ??? Never Used ROS Constitutional: No fever, chills, or sweats. No weight gain/loss. ENT: No visual disturbance, ear ache, epistaxis, sore throat. Allergies/Immunologic: Negative. Respiratory: No cough, hemoptysis. Cardiovascular: As per HPI. GI: No nausea, vomiting, hematemesis, melena, or hematochezia. : No urinary frequency, dysuria, or hematuria. Integument: Negative. Psychiatric: Negative. Neuro: Negative. Endocrinology: Negative. Musculoskeletal: Negative Vital Signs BP 149/81 mmHg Pulse 68 Ht 1.702 m (5' 7) Wt 79.289 kg (174 lb 12.8 oz) BMI 27.37 kg/m2 SpO2 98% Waist: 36 Hip: 41 Physical Exam In general, the patient is a pleasant female in no apparent distress. HEENT: NC/AT. PERRLA. Mild head tremor. EOMI. Sclerae white, not injected. Nares clear. [...] edema. The pulses are +2/2 at the radial, brachial, femoral, and PT sites bilaterally. No bruits are noted. Recent Labs Lab Results Component Value Date GLC 98 07/22/2016 Lab Results Component Value Date NTBNP 120 01/04/2015 No results found for: NTBNPI Lab Results Component Value Date UCRR 103 07/22/2016 Lab Results Component Value Date MICROL <5 07/22/2016 Lab Results Component Value Date MICROALBUMIN Unable to calculate due to low value 07/22/2016 Lab Results Component Value Date CRP 4.9 07/22/2016 CRP 3.2 01/10/2016 Lab Results Component Value Date CHOL 243* 07/22/2016 Lab Results Component Value Date TRIG 193* 07/22/2016 Lab Results Component Value Date HDL 64 07/22/2016 Lab Results Component Value Date LDL 141* 07/22/2016 Lab Results Component Value Date VLDL 31* 01/04/2015 Lab Results Component Value Date CHOLHDLRATIO 3.4 01/04/2015 Lab Results Component Value Date NHDL 179* 07/22/2016 Test Results BASIC Spirometry: Summary of two attempts: See print out for details Results: Estimated range for Ht/Age FVC: 2.59 L. FVC: 2.44-3.87 L. FEV1: 2.43 L. FEV1: 1.79-3.00 L. History of asthma Respiratory infection current/recent: none. Spirometry Results: Normal. WALKING BLOOD PRESSURE RESPONSE ( 3 MINUTE 5 MET LEVEL WALK) Pre BP 130/80 mmHg 3 min BP 160/62 mmHg 1 min post BP 130/80 mmHg Pre HR 80 bpm 3 min HR 136 bpm 1 min post HR 76 bpm RETINAL VASCULAR ASSESSMENT Abnormality present right eye: None. AV Ratio decimal: Right: 0.90 Abnormality present left eye: None. AV Ratio decimal: Left: 0.83 Retinal assessment: Normal. ABDOMINAL AORTA ULTRASOUND < 2.5 Normal, borderline 2.5-2.9, abnormal ? 3 SupraIliac: 2.0 cm SupraRenal 2.0 cm InfraRenal Proximal 2.0 cm InfraRenal Distal 2.0 cm Comments: within normal limit LEFT VENTRICULAR ULTRASOUNDS MEASUREMENTS: (adjusted for BSA) LVIDD 44 mm Septa 10 mm Posterior 9 mm Comments: within normal limit Carotid Artery IMT measurements report and plaques in the small area examined: Left IMT Lat F wall: 0.731 mm. Plaques: none. Right IMT Lat F wall: 0.579 mm. Plaques: none ECG (see tracing): Normal Sinus rhythm rate Arterial elasticity (see print out) per age and gender: C1: 14.2 ml/mmHg Normal. C2: 2.8 ml/mmHg Abnormal. Supine Blood pressure: 135/80 mmHg Assessment Cardiovascular: Recent ECG at [facility] in June viewed sinus rhythm rate [address] abnormality with slight J point elevation similar to past ECG's. No symptoms of chest pain or shortness of breath or palpitations. Her artery elasticity has improved since her previous visit possibly because of perindopril but remains low. No carotid plaques observed in the area examined with carotidIMT measurement. Blood pressure: elevated sitting 149/81 and prehypertensive 130/78 supine with perindopril 2 mg per day. Renal function labs normal with increase in GFR to 68 normal range with normal creatinine. Temporary drop in GFR most likely related to surgery prep under hydration. Lipids: She has declined statin in the past. LDL has increased to 141 and triglycerides mildly elevated at 193. She has not been taking her fish oil since surgery in June. Some people do get a decline in LDL with fish oil but most do not. Will restart her fish oil to see if her LDL improves. She also has not been walking as much as she used to but has remained active. She is planning to start a more purposeful walking program. HDL above average at 64. Glucose level is lower now from 110 To normal range at 98 and A1c level is normal at 5.4%.She has been working to reduce her weight and is down from 180 in January. Health Habits: Exercise: Active through out the day but no regular exercise plan. She is wanting to resume her walking program which is encouraged. Nutrition: Generally eats heart healthy. Weight: BMI 27, she continues to work on weight reduction. Tobacco: Never smoked. Time spent for patient visit was 50 minutes with more than half the time spent on counseling and coordination of care. Full report to follow prevention team review of test results with scanned final report. CC Patient Care Team: Lisseth Vang MD as PCP - General Carlota Acuña MD as (Urology) Luz Maria Kelly MD as MD (Internal Medicine) Lisseth Vang MD as PCP (Family Practice) SELF, REFERRED Answers for HPI/ROS submitted by the patient on 07/22/2016 General Symptoms: No Skin Symptoms: No HENT Symptoms: No EYE SYMPTOMS: No HEART SYMPTOMS: No LUNG SYMPTOMS: No INTESTINAL SYMPTOMS: No URINARY SYMPTOMS: No GYNECOLOGIC SYMPTOMS: No BREAST SYMPTOMS: No SKELETAL SYMPTOMS: No BLOOD SYMPTOMS: No NERVOUS SYSTEM SYMPTOMS: No MENTAL HEALTH SYMPTOMS: No Answers for HPI/ROS submitted by the patient on 07/22/2016 General Symptoms: No Skin Symptoms: No HENT Symptoms: No EYE SYMPTOMS: No HEART SYMPTOMS: No LUNG SYMPTOMS: No INTESTINAL SYMPTOMS: No URINARY SYMPTOMS: No GYNECOLOGIC SYMPTOMS: No BREAST SYMPTOMS: No SKELETAL SYMPTOMS: No BLOOD SYMPTOMS: No NERVOUS SYSTEM SYMPTOMS: No MENTAL HEALTH SYMPTOMS: No 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 documented in this encounter Plan of Treatment Upcoming Encounters Date Type Specialty Care Team Description 09/10/2022 Office Visit Internal Medicine LogeaMargot man MD [address] [place] [address] [id number] (Wo rk) documented as of this encounter Procedures Procedure Name Priority Date/Time Associated Diagnosis Comme nts HC PHOTOGRAPY FUNDUS Routine 07/24/2016 8:11 AM Essential hype rtension CDT with goal blood pressure less than 140/90 Hyperlipidemia LDL goal <100 Other specified peripheral vascular diseases (H) Vitamin D deficiency CARDIAC OTHER - HIM 07/24/2016 12:00 AM SCAN CDT HC ANKLE-ARM INDEX 1-2 Routine 07/24/2016 Other specified LEVEL BILATERAL peripheral vascular diseases (H) Essential hypertension with goal blood pressure less than 140/90 Hyperlipidemia LDL goal <100 Vitamin D deficiency HC SPIROMETRY, BREATH Routine 07/24/2016 Essential hypertens ion CAPACITY with goal blood pressure less than 140/90 Hyperlipidemia LDL goal <100 Other specified peripheral vascular diseases (H) Vitamin D deficiency documented in this encounter Results Vitamin D Deficiency Screening (03/25/2018 6:46 AM CDT) P athologist Signature Vitamin D 47 20 - 75 03/25/2018 [facility] Deficiency ug/L 1:16 PM CDT [facility] Comment: Season, race, dietary intake, and treatm ent affect the concentration of 99-shzgmeg-Milvoan D. Values may decreas e during winter [...] Organization Address City/State/ZIP Code Phon e Number [facility] [address] [place] [address] [facility] Spirometry, Breathing Capacity (in clinic) (07/24/2016) P athologist Signature FEV-1 FVC FEV1/FVC FEF 25/75 Narrative This result has an attachment that is no t available. Anh Costa APRN, CNP PROCEDURES Arterial PulseWave Analysis (07/24/2016) Anatomical Region Laterality Modality Other Narrative This result has an attachment that is no t available. Anh Costa APRN, CNP SPECIAL IMAGING STUDIES CARDIAC OTHER - HIM SCAN (07/24/2016 12:00 AM CDT) Specimen (Source) Anatomical Location Collection Method / Collectio n Time Received Time / Laterality Volume 07/24/2016 Narrative This result has an attachment that is no t available. Provider Scan CV CARDIAC SERVICES ORDERABL ES documented in this encounter Visit Diagnoses Diagnosis Essential hypertension with goal blood p ressure less than 140/90 - Primary Hyperlipidemia LDL goal <100 Other and unspecified hyperlipidemia Other specified peripheral vascular dise ases (H) Vitamin D deficiency Unspecified vitamin D deficiency documented in this encounter Care Teams Ad Taker Relationship Specialty Start Date End Date Lisseth Vang MD PCP - General 04/13/16 11/14/[address] [place], [place] [address] Carlota cAuña MD MD Urology 04/10/[id number] [place], [place] [address] Luz Maria Kelly MD MD Internal Medicine 03/27/16 02/22/17 Lisseth Vang MD PCP Family Practice 03/30/16 11/14/19 [id number] [address] [place] [address] documented as of this encounter
--- OUTSIDE RECORDS SUMMARY | 2022-07-30 19:28 | XMS_ITS | Encounter Summary ---
:1945 Author Organization [facility] Address [address] [place] [address]. [place] [address] Care Team Providers Name Role Phone Lisseth Vang MD Primary Care Provider Carlota Landeros MD Unavailable Luz Maria Kelly MD Unavailable Lisseth Vang MD Unavailable Reason for Visit Reason Onset Date Comments Call Back 07/01/2016 Schedule an [facility] ent Encounter Details Date Type Department Care Team Description 07/01/2016 Telephone [facility] None Eugenio l Back (Schedule an [place] appointment) [address] [place], [place] [id number] [phone] Social History Tobacco Use Types Packs/Day Years Used Date Smoking Tobacco: Never Smokeless Tobacco: Never Alcohol Use Standard Drinks/Week Comments Yes 0 (1 standard drink = 0.6 oz pure alcoho l) wine few times/wk Sex Assigned at Date Recorded Female 12/20/2018 4:10 PM CDT documented as of this encounter Miscellaneous Notes Telephone Encounter - Renee Lindsey RN - 07/02/2016 2:19 PM CDT Called patient. She said that she had one abnormal GFR test. She has never been told that she has had any issues relating to her kidneys. Advised that she follow up first with her PCP to repeat labs, check BP and address pain. If her PCP advises, instructed patient to call back to schedule with nephrology. Patient verbalized understanding. Renee Lindsey RN, BSN Nephrology [facility] Telephone Encounter - Jena Pruitt - 07/01/2016 4:57 PM CDT [facility] Call Center Phone Message Name of Caller: Yamileth Greene Phone Number: Cell number on file: Telephone Information: Best time to return call: any May a detailed message be left on voicemail: yes Relation to patient: Self Reason for Call: Symptoms or Concerns Does patient have any of the following red flag symptoms: None Does patient have any Red Flag symptoms? No. Current symptom or concern: Patient states she is having lower back pain and a nurse [place] told her the area she is having pain is where her kidneys are. Patient also states that her blood pressure is 140/ 83 and that she had a EGSK non test done and it came back 55ml/ ESAand when the patient looked the test up online the website stated if the test came back under 60 ml that there could be kidney issues. Per protocol I could not find a diagnosis to schedule the patient with Nephrology. Patient would like to discuss with a nurse if it would be appropriate for her to come in. Please advise. Symptoms have been present for: 1-3 day(s) Has patient previously been seen for this? No Are there any new or worsening symptoms? No Action Taken: Message routed to: Adult Clinics: Nephrology p [id number] documented in this encounter Plan of Treatment Upcoming Encounters Date Type Specialty Care Team Description 09/10/2022 Office Visit Internal Medicine Margot Branham MD [address] [id number] (Wo rk) documented as of this encounter Visit Diagnoses Not on filedocumented in this encounter Care Teams Barber Tool Sharpener Relationship Specialty Start Date End Date Lisseth Vang MD PCP - General 04/13/16 11/14/[address] [facility] [address] [place] [address] Carlota Landeros MD MD Urology 04/10/[id number] [place] [address] Luz Maria Kelly MD MD Internal Medicine 03/27/16 02/22/17 Lisseth Vang MD PCP Family Practice 03/30/16 11/14/[address] [place] [address] documented as of this encounter
--- OUTSIDE RECORDS SUMMARY | 2022-07-30 19:28 | XMS_ITS | Encounter Summary ---
:1945 Author Organization [facility] Address [address] [place] [address]. [place] [address] Care Team Providers Name Role Phone Lisseth Vang MD Primary Care Provider Carlota Landeros MD Unavailable Luz Maria Kelly MD Unavailable Lisseth Vang MD Unavailable Encounter Details Date Type Department Care Team Description 07/15/2016 Orders Only [facility] Anh Costa hypertension Cardiovascular Disease Salma, CLAUDIA INCLUSION SPECIAL EDUCATOR wit h goal blood Prevention pressure less than [address] [facility] 140/90 (Primary Dx) [address] [place] [address] Social History Tobacco Use Types [...] Visit Internal Medicine LogMargot sadler MD [address] [facility] [address] [place] [address] (Wo rk) documented as of this encounter Visit Diagnoses Diagnosis Essential hypertension with goal blood p ressure less than 140/90 - Primary documented in this encounter Care Teams Web Content & Social Media Manager Relationship Specialty Start Date End Date Lisseth Vang MD PCP - General 04/13/16 11/14/[address] [place] [address] Carlota Landeros MD MD Urology 04/10/[id number] [place], [place] [address] Luz Maria Kelly MD MD Internal Medicine 03/27/16 02/22/17 Lisseth Vang MD PCP Family Practice 03/30/16 11/14/[address] [place] [address] documented as of this encounter
--- OUTSIDE RECORDS SUMMARY | 2022-07-30 19:28 | XMS_ITS | Encounter Summary ---
:1945 Author Organization [place] Address [address] [place] [address]. [place] [address] Care Team Providers Name Role Phone Lisseth Vang MD Primary Care Provider Carlota Landeros MD Unavailable Luz Maria Kelly MD Unavailable Lisseth Vang MD Unavailable Reason for Visit Reason Comments RECHECK interstim check Encounter Details Date Type Department Care Team Description 02/17/2017 Office Visit [facility] Urology and Carlota Landeros U rgbeba incontinence of urine (Primary Dx); Inst for Prostate and MD Urinary urgency Urologic [facility]ancers [id number] [facility] [address] 4th [place] [phone] Social History Tobacco Use Types Packs/Day Years Used Date Smoking Tobacco: Never Smokeless Tobacco: Never Alcohol Use Standard Drinks/Week Comments Yes 0 (1 standard drink = 0.6 oz pure alcoho l) wine few times/wk Sex Assigned at Date Recorded Female 12/20/2018 4:10 PM CDT documented as of this encounter Last Filed Vital Signs Vital Sign Reading Time Taken Comments Blood Pressure 117/70 02/17/2017 2:42 PM CDT Pulse 72 02/17/2017 2:42 PM CDT Temperature - - Respiratory Rate - - Oxygen Saturation - - Inhaled Oxygen Concentration - - Weight 86.2 kg (190 lb) 02/17/2017 2:42 PM CDT Height 167.6 cm (5' 6) 02/17/2017 2:42 PM CDT Body Mass Index 30.67 02/17/2017 2:42 PM CDT documented in this encounter Progress Notes Carlota Landeros MD - 02/17/2017 2:15 PM CDT Reason for Visit: Follow-up on urinary symptoms ?? Clinical Data: Ms. Yamileth Sheikh is a 71 year old year old female with a history of midurethralsling on 03/26/16. She also underwent InterStim placement on 05/19/2011. The patient had urodynamics completed in 02/2011 prior to InterStim placement, which demonstrated normal bladder capacity, good bladder compliance, a large stress leak at pAbd 153 cm H2O at a volume of 319 ml and Valsalva voiding with a low maximum voiding Pabd 20 cm H2O. There was no obvious detrusor contraction and PVR was 150 ml. The sling was placed for incontinence and she is not having much incontinence anymore. The InterStim was placed for issues with urinary dribbling/detrusor underactivity. She is no longer feeling the stimulator, and her generator no longer interacts with the programming device. She suspects the battery has . Her urinary symptoms have recurred. Exam Ht 1.676 m (5' 6) Wt 86.2 kg (190 lb) BMI 30.67 kg/m2 No acute distress Unlabored breathing ?? A/P 71 year old female with mixed incontinence s/p midurethral sling in 2015 and Interstsim placement in 2010 (left side) - Will interrogate device today to confirm - Will schedule InterStim generator replacement at a time mutually convenient Ernie Yeager MD, PGY-4 Patient was seen, evaluated and plan was formulated in conjunction with me and I agree with the above. Carlota Landeros MD documented in this encounter Nursing Notes Latoya Guerra CMA - 02/17/2017 2:15 PM CDT Chief Complaint Patient presents with ??? RECHECK interstim check Latoya Guerra MA documented in this encounter Plan of Treatment Upcoming Encounters Date Type Specialty Care Team Description 09/10/2022 Office Visit Internal Medicine Margot Branham MD [address] [address] (Wo rk) Scheduled Orders Name Type Priority Associated Diagnoses Order S chedule Bridget-Operative Procedures Routine Urge incontinence of Order ed: 02/17/2017 Worksheet (Urology urine General) Urinary urgency documented as of this encounter Visit Diagnoses Diagnosis Urge incontinence of urine - Primary Urge incontinence Urinary urgency Urgency of urination documented in this encounter Care Teams Utility Plant Operative Relationship Specialty Start Date End Date Lisseth Vang MD PCP - General 04/13/16 11/14/[address] [place], [place] [address] Carlota Landeros MD MD Urology 04/10/[address] [place], [place] [address] Luz Maria Kelly MD MD Internal Medicine 03/27/16 02/22/17 Lisseth Vang MD PCP Family Practice 03/30/16 11/14/[address] [place], [place] [address] documented as of this encounter
--- OUTSIDE RECORDS SUMMARY | 2022-07-30 19:28 | XMS_ITS | Encounter Summary ---
:1945 Author Organization [place] Address [address] [place] [address]. [place] [address] Care Team Providers Name Role Phone Lisseth Vang MD Primary Care Provider Carlota Landeros MD Unavailable Luz Maria Kelly MD Unavailable Lisseth Vang MD Unavailable Reason for Visit Reason Comments Blood Draw Patient here for blood work for Elevated glucose Encounter Details Date Type Department Care Team Description 07/22/2016 Orders Only [facility] Anh Costa Elevat ed glucose; [facility] VAT TENDER JOB TRAINER Essential hypertension with goal blood pressure less than 130/85 [address] [place] [address] Social History Tobacco Use Types Packs/Day Years Used Date Smoking Tobacco: Never Smokeless Tobacco: Never Alcohol Use Standard Drinks/Week Comments Yes 0 (1 standard drink = 0.6 oz pure alcoho l) wine few times/wk Sex Assigned at Date Recorded Female 12/20/2018 4:10 PM CDT documented as of this encounter Last Filed Vital Signs Vital Sign Reading Time Taken Comments Blood Pressure 143/78 07/22/2016 12:44 PM CDT Pulse 68 07/22/2016 12:44 PM CDT Temperature 36.4 ??C (97.5 ??F) 07/22/2016 12:44 PM CDT Respiratory Rate 18 07/22/2016 12:44 PM CDT Oxygen Saturation - - Inhaled Oxygen Concentration - - Weight 80.3 kg (177 lb 0.5 oz) 07/22/2016 12:44 PM CDT Height - - Body Mass Index 27.93 07/21/2016 11:57 AM CDT documented in this encounter Progress Notes Jo Bradley, RN - 07/22/2016 12:55 PM CDT Chief Complaint Patient presents with ??? Blood Draw Patient here for blood work for Elevated glucose Labs drawn by RN, and vital signs checked. Jo Bradley RN, OCN documented in this encounter Plan of Treatment Upcoming Encounters Date Type Specialty Care Team Description 09/10/2022 Office Visit Internal Medicine Logeais, MD Margot [address] [address] (Wo rk) documented as of this encounter Procedures Procedure Name Priority Date/Time Associated Diagnosis Comme nts ALBUMIN RANDOM URINE Routine 07/22/2016 12:52 Elevated g lucose Results for this QUANTITATIVE PM CDT Essential procedure are i n hypertension with the result s goal blood pressure section. less than 130/85 LIPID REFLEX TO DIRECT Routine 07/22/2016 12:50 Elevated glucose Results for this LDL PANEL PM CDT Essential procedure are i n hypertension with the result s goal blood pressure section. less than 130/85 HEMOGLOBIN A1C Routine 07/22/2016 12:50 Elevated glucos e Results for this PM CDT Essential procedure are i n hypertension with the result s goal blood pressure section. less than 130/85 CRP CARDIAC RISK Routine 07/22/2016 12:50 Elevated gluco se Results for this PM CDT Essential procedure are i n hypertension with the result s goal blood pressure section. less than 130/85 COMPREHENSIVE Routine 07/22/2016 12:50 Elevated glucos e Results for this METABOLIC PANEL PM CDT Essential procedure ar e in hypertension with the result s goal blood pressure section. less than 130/85 documented in this encounter Results Microalbumin quantitative random urine (07/22/2016 12:52 PM CDT) [facility] Method Time Signature Creatinine 103 mg/dL [place] Urine [facility] Albumin Urine <5 mg/L [place] mg/L [facility] Albumin Urine Unable to 0 - 25 [place] mg/g Cr calculate due mg/g Cr [facility] to low value [facility] Specimen Anatomical Collection Method Collection Time Receive d Time (Source) Location / / Volume Laterality Urine specimen 07/22/2016 12:52 6 (specimen) PM CDT 12:54 PM CDT Anh Costa APRN, CNP LAB - URINE ORDERABLES Performing Organization Address City/State/ZIP Code Phon e Number [facility] [address] [address] [facility] [address] [place] [address], U [phone] Hemoglobin A1c (07/22/2016 12:50 PM CDT) P athologist Signature Hemoglobin A1C 5.4 4.3 - 6.0 [facility] Specimen Anatomical Collection Method Collection Time Receive d Time (Source) Location / / Volume Laterality Blood specimen 07/22/2016 12:50 6 (specimen) PM CDT 12:54 PM CDT Anh Costa APRN, CNP LAB - BLOOD ORDERABLES Performing Organization Address City/State/ZIP Code Phon e Number [address] [address] [facility] Comprehensive metabolic panel (07/22/2016 12:50 PM CDT) P athologist Signature Sodium 142 133 - 144 [facility] mmol/L [facility] Potassium 4.3 3.4 - 5.3 [facility] mmol/L [facility] Chloride 109 94 - 109 [facility] mmol/L [facility] Carbon Dioxide 26 20 - 32 [facility] mmol/L [facility] Anion Gap 7 3 - 14 [facility] mmol/L [facility] Glucose 98 70 - 99 [facility] mg/dL [facility] Urea Nitrogen 10 7 - 30 [facility] mg/dL [facility] Creatinine 0.83 0.52 - [facility] 1.04 mg/dL [facility] GFR Estimate 68 >60 [facility] mL/min/1.7 [place] m2 [facility] Comment: Non GFR Calc GFR Estimate If Black 83 >60 mL/min/1.7m2 U [facility] Comment: GFR Calc Calcium 8.7 8.5 - 10.1 mg/dL [facility] Bilirubin Total 0.7 0.2 - 1.3 mg/dL [facility] Albumin 3.6 3.4 - 5.0 g/dL [facility] Protein Total 6.8 6.8 - 8.8 g/dL [facility] Alkaline Phosphatase 92 40 - 150 U/L [facility] ALT 21 0 - 50 U/L [facility] AST 16 0 - 45 U/L [facility] Specimen Anatomical Collection Method Collection Time Receive d Time (Source) Location / / Volume Laterality Blood specimen 07/22/2016 12:50 6 (specimen) PM CDT 12:54 PM CDT Anh Costa APRN, CNP LAB - BLOOD ORDERABLES Performing Organization Address City/State/ZIP Code Phon e Number [facility] [address] [place] [address] [facility] AND [facility] CRP cardiac risk (07/22/2016 12:50 PM CDT) P athologist Signature CRP Cardiac 4.9 mg/L [facility] Comment: Reference Values: Low Risk: ? <1.0 mg/L Average Risk: ? 1.0-3.0 mg/L High Risk: ?>3.0 mg/L Acute Inflammation: >8.0 mg/L Specimen Anatomical Collection Method Collection Time Receive d Time (Source) Location / / Volume Laterality Blood specimen 07/22/2016 12:50 6 (specimen) PM CDT 12:54 PM CDT Anh Costa APRN, CNP LAB - BLOOD ORDERABLES Performing Organization Address City/State/ZIP Code Phon e Number [facility] [address] [place], [place] [id number] [place] [address] (ABNORMAL) Lipid panel reflex to direct LDL (07/22/2016 12:50 PM CDT) athologist Signature Cholesterol 243 (H) <200 mg/dL [facility] Comment: Desirable: <200 mg/dl Triglycerides 193 (H) <150 mg/dL [facility] Comment: Borderline high: ??150-199 mg/dl High: ? 200-499 mg/dl Very high: ? >499 mg/dl HDL Cholesterol 64 >49 mg/dL [facility] LDL Cholesterol Calculated 141 (H) <100 mg/dL [facility] Comment: Above desirable: ??100-129 mg/dl Borderline High: ??130-159 mg/dL High: ? 160-189 mg/dL Very high: ? >189 mg/dl Non HDL Cholesterol 179 (H) <130 mg/dL [facility] Comment: Above Desirable: ??130-159 mg/dl Borderline high: ??160-189 mg/dl High: ? 190-219 mg/dl Very high: ? >219 mg/dl Specimen Anatomical Collection Method Collection Time Receive d Time (Source) Location / / Volume Laterality Blood specimen 07/22/2016 12:50 6 (specimen) PM CDT 12:54 PM CDT Anh Costa APRN JOB TRAINER LAB - BLOOD ORDERABLES Performing Organization Address City/State/ZIP Code Phon e Number [address] [address] [facility] documented in this encounter Visit Diagnoses Diagnosis Elevated glucose Other abnormal glucose Essential hypertension with goal blood p ressure less than 130/85 documented in this encounter Care Teams Coding Advisor Relationship Specialty Start Date End Date Lisseth Vang MD PCP - General 04/13/16 11/14/[address] [place] [address] Carlota Landeros MD MD Urology 04/10/[address] [place] [address] Luz Maria Kelly MD MD Internal Medicine 03/27/16 02/22/17 Lisesth Vang MD PCP Family Practice 03/30/16 11/14/[address] [place], [place] [id number] documented as of this encounter
--- OUTSIDE RECORDS SUMMARY | 2022-07-30 19:28 | XMS_ITS | Encounter Summary ---
:1945 Author Organization [place] Address [address] [place] [address]. [place] [address] Care Team Providers Name Role Phone Lisseth Vang MD Primary Care Provider Carlota Landeros MD Unavailable Luz Maria Kelly MD Unavailable Lisseth Vang MD Unavailable Encounter Details Date Type Department Care Team Description 07/02/2016 Orders Only [facility] for Anh Costa Elevate d glucose (Primary Dx); Cardiovascular Disease CLAUDIA Marsh HEAT TREAT OPERATOR Ess ential hypertension with goal blood pressure less than 130/[address] [place] [phone] Social History Tobacco Use Types Packs/Day [...] Office Visit Internal Medicine LogeaisMargot MD [address] [place] [address] (Wo rk) documented as of this encounter Results Microalbumin quantitative random urine (07/22/2016 12:52 PM CDT) [facility] Time Signature Creatinine 103 mg/dL [facility] Albumin Urine <5 mg/L [place] mg/L [facility] Albumin Urine Unable to 0 - 25 [place] mg/g Cr calculate due mg/g Cr [facility] to low value [facility] Specimen Anatomical Collection Method Collection Time Receive d Time (Source) Location / / Volume Laterality Urine specimen 07/22/2016 12:52 6 (specimen) PM CDT 12:54 PM CDT Anh Costa APRN, CNP LAB - URINE ORDERABLES Performing Organization Address City/State/ZIP Code Phon e Number [facility] [address] [place] [address] [phone] [facility] [address] [place] [address], [facility] [phone] Hemoglobin A1c (07/22/2016 12:50 PM CDT) P athologist Signature Hemoglobin A1C 5.4 4.3 - 6.0 [facility] Specimen Anatomical Collection Method Collection Time Receive d Time (Source) Location / / Volume Laterality Blood specimen 07/22/2016 12:50 6 (specimen) PM CDT 12:54 PM CDT Anh Costa APRN, CNP LAB - BLOOD ORDERABLES Performing Organization Address City/State/ZIP Code Phon e Number [address] [address] [facility] Comprehensive metabolic panel (07/22/2016 12:50 PM CDT) P athologist Signature Sodium 142 133 - 144 [facility] mmol/L [facility] Potassium 4.3 3.4 - 5.3 [facility] mmol/L [facility] Chloride 109 94 - 109 [facility] mmol/L [facility] Carbon Dioxide 26 20 - 32 [facility] mmol/L [facility] Anion Gap 7 3 - 14 [facility] mmol/L [facility] Glucose 98 70 - 99 [facility] mg/dL [facility] Urea Nitrogen 10 7 - 30 [facility] mg/dL [facility] Creatinine 0.83 0.52 - [facility] 1.04 mg/dL [facility] GFR Estimate 68 >60 [facility] mL/min/1.7 [place] m2 [facility] Comment: Non GFR Calc GFR Estimate If Black 83 >60 mL/min/1.7m2 U [facility] Comment: GFR Calc Calcium 8.7 8.5 - 10.1 mg/dL [facility] Bilirubin Total 0.7 0.2 - 1.3 mg/dL [facility] Albumin 3.6 3.4 - 5.0 g/dL [facility] Protein Total 6.8 6.8 - 8.8 g/dL [facility] Alkaline Phosphatase 92 40 - 150 U/L [facility] ALT 21 0 - 50 U/L [facility] AST 16 0 - 45 U/L [facility] Specimen Anatomical Collection Method Collection Time Receive d Time (Source) Location / / Volume Laterality Blood specimen 07/22/2016 12:50 6 (specimen) PM CDT 12:54 PM CDT Anh Costa APRN, CNP LAB - BLOOD ORDERABLES Performing Organization Address City/State/ZIP Code Phon e Number [address] [address] [facility] CRP cardiac risk (07/22/2016 12:50 PM CDT) P athologist Signature CRP Cardiac 4.9 mg/L [facility] Comment: Reference Values: Low Risk: ? <1.0 mg/L Average Risk: ? 1.0-3.0 mg/L High Risk: ?>3.0 mg/L Acute Inflammation: >8.0 mg/L Specimen Anatomical Collection Method Collection Time Receive d Time (Source) Location / / Volume Laterality Blood specimen 07/22/2016 12:50 6 (specimen) PM CDT 12:54 PM CDT Anh Costa APRN HEAT TREAT OPERATOR LAB - BLOOD ORDERABLES Performing Organization Address City/State/ZIP Code Phon e Number [facility] [address] (ABNORMAL) Lipid panel reflex to direct LDL (07/22/2016 12:50 PM CDT) P athologist Signature Cholesterol 243 (H) <200 mg/dL [facility] Comment: Desirable: <200 mg/dl Triglycerides 193 (H) <150 mg/dL [facility] Comment: Borderline high: ??150-199 mg/dl High: ? 200-499 mg/dl Very high: ? >499 mg/dl HDL Cholesterol 64 >49 mg/dL [facility] LDL Cholesterol Calculated 141 (H) <100 mg/dL [facility] Comment: Above desirable: ??100-129 mg/dl Borderline High: ??130-159 mg/dL High: ? 160-189 mg/dL Very high: ? >189 mg/dl Non HDL Cholesterol 179 (H) <130 mg/dL [facility] Comment: Above Desirable: ??130-159 mg/dl Borderline high: ??160-189 mg/dl High: ? 190-219 mg/dl Very high: ? >219 mg/dl Specimen Anatomical Collection Method Collection Time Receive d Time (Source) Location / / Volume Laterality Blood specimen 07/22/2016 12:50 6 (specimen) PM CDT 12:54 PM CDT Anh Costa APRN HEAT TREAT OPERATOR LAB - BLOOD ORDERABLES Performing Organization Address City/State/ZIP Code Phon e Number [address] [phone] [facility] documented in this encounter Visit Diagnoses Diagnosis Elevated glucose - Primary Other abnormal glucose Essential hypertension with goal blood p ressure less than 130/85 documented in this encounter Care Teams Counter Waitress/Waiter Relationship Specialty Start Date End Date Lisseth Vang MD PCP - General 04/13/16 11/14/[address] [place] [address] Carlota Landeros MD MD Urology 04/10/[address] [place], [place] [address] Luz Maria Kelly MD MD Internal Medicine 03/27/16 02/22/17 Lisseth Vang MD PCP Family Practice 03/30/16 11/14/[address] [place] [address] documented as of this encounter
--- OUTSIDE RECORDS SUMMARY | 2022-07-30 19:28 | XMS_ITS | Encounter Summary ---
:1945 Author Organization [place] Address [address] [place] [address]. [place] [address] Care Team Providers Name Role Phone Lisseth Vang MD Primary Care Provider Carlota Landeros MD Unavailable Luz Maria Kelly MD Unavailable Lisseth Vang MD Unavailable Reason for Visit Reason Onset Date Comments Refill Request 07/23/2016 Procto foam Encounter Details Date Type Department Care Team Description 07/23/2016 Refill [facility] Primary Care Luz Maria Kelly, Refill Request ([facility] foam) [address] [place] [address] [address]th [address] [place] [phone] Social History Tobacco Use Types Packs/Day Years Used Date Smoking Tobacco: Never Smokeless Tobacco: Never Alcohol Use Standard Drinks/Week Comments Yes 0 (1 standard drink = 0.6 oz pure alcoho l) wine few times/wk Sex Assigned at Date Recorded Female 12/20/2018 4:10 PM CDT documented as of this encounter Miscellaneous Notes Addendum Note - Celena Apodaca RN - 07/28/2016 10:42 AM CDT Addended by: CELENA APODACA on: 07/28/2016 10:42 AM Modules accepted: Orders documented in this encounter Plan of Treatment Upcoming Encounters Date Type Specialty Care Team Description 09/10/2022 Office Visit Internal Medicine Margot Branham MD [address] [address] (Wo rk) documented as of this encounter Visit Diagnoses Diagnosis External hemorrhoids - Primary External hemorrhoids without mention of complication documented in this encounter Care Teams Warehouse Shipping Associate Relationship Specialty Start Date End Date Lisseth Vang MD PCP - General 04/13/16 11/14/[address] [place] [address] Carlota Landeros MD MD Urology 04/10/[address] [place], [place] [address] Luz Maria Kelly MD MD Internal Medicine 03/27/16 02/22/17 Lisseth Vang MD PCP Family Practice 03/30/16 11/14/[address] [place] [address] documented as of this encounter
--- OUTSIDE RECORDS SUMMARY | 2022-07-30 19:28 | XMS_ITS | Encounter Summary ---
:1945 Author Organization [place] Address [address] [facility] [place] [address] Care Team Providers Name Role Phone Lisseth Vang MD Primary Care Provider Carlota Landeros MD Unavailable Luz Maria Kelly MD Unavailable Lisseth Vang MD Unavailable Reason for Visit Reason Onset Date Comments Patient Request 07/21/2016 Encounter Details Date Type Department Care Team Description 07/21/2016 Telephone [facility] Women[facility] Clinic Nurse, U [facility] Patient Request [place] [address] Professional Bldg [facility] [address],[facility] [address] [place], [place] [phone] Social History Tobacco Use Types Packs/Day Years Used Date Smoking Tobacco: Never Smokeless Tobacco: Never Alcohol Use Standard Drinks/Week Comments Yes 0 (1 standard drink = 0.6 oz pure alcoho l) wine few times/wk Sex Assigned at Date Recorded Female 12/20/2018 4:10 PM CDT documented as of this encounter Miscellaneous Notes Telephone Encounter - Margot Tucker RN - 07/21/2016 1:38 PM CDT Yamileth saw Dr Vang in clinic today and forgot to ask her what she can take terminal manager for constipation. I will forward to Dr Khanna and Yamileth said we can mychart her the recommendations. She has used metamucil in past and made her burp all the time. documented in this encounter Plan of Treatment Upcoming Encounters Date Type Specialty Care Team Description 09/10/2022 Office Visit Internal Medicine Margot Branham MD [address] [place] [address] (Wo rk) documented as of this encounter Visit Diagnoses Not on filedocumented in this encounter Care Teams Board Turner Relationship Specialty Start Date End Date Lisseth Vang MD PCP - General 04/13/16 11/14/[address] [place] [address] Carlota Landeros MD MD Urology 04/10/[address] [place], [place] [address] Luz Maria Kelly MD MD Internal Medicine 03/27/16 02/22/17 Lisseth Vang MD PCP Family Practice 03/30/16 11/14/[address] [place] [address] documented as of this encounter
--- OUTSIDE RECORDS SUMMARY | 2022-07-30 19:28 | XMS_ITS | Encounter Summary ---
:1945 Author Organization [facility] Address [address] [place] [address]. [place] [address] Care Team Providers Name Role Phone Lisseth Vang MD Primary Care Provider Carlota Landeros MD Unavailable Luz Maria Kelly MD Unavailable Lisseth Vang MD Unavailable Encounter Details Date Type Department Care Team Description 08/03/2016 Orders Only [facility] Anh Costa hypertension Cardiovascular Disease Salma, CLAUDIA QA REVIEWER wit h goal blood Prevention pressure less than [address] [facility] 140/90 (Primary Dx) [address] [place] [address] Social History Tobacco Use Types [...] Visit Internal Medicine LogMargot sadler MD 909 [facility] 4[address] [place] [address] (Wo rk) documented as of this encounter Visit Diagnoses Diagnosis Essential hypertension with goal blood p ressure less than 140/90 - Primary documented in this encounter Care Teams Sandwich Peddler Relationship Specialty Start Date End Date Lisseth Vang MD PCP - General 04/13/16 11/14/[address] [place] [address] Carlota Landeros MD MD Urology 04/10/[address] [place], [place] [phone] Luz Maria Kelly MD MD Internal Medicine 03/27/16 02/22/17 Lisseth Vang MD PCP Family Practice 03/30/16 11/14/[address] [place] [address] documented as of this encounter
--- OUTSIDE RECORDS SUMMARY | 2022-07-30 19:28 | XMS_ITS | Encounter Summary ---
:1945 Author Organization [facility] Address [address] [place] [address]. [place] [address] Care Team Providers Name Role Phone Lisseth Vang MD Primary Care Provider Carlota Landeros MD Unavailable Lisseth Vang MD Unavailable Reason for Visit Reason Onset Date Comments Pre Visit Planning - Done 05/04/2017 Encounter Details Date Type Department Care Team Description 05/04/2017 PRE VISIT [facility] and Carlota Landeros P re Visit Planning - Inst for Prostate and MD Done [facility] [id number] 4th [place] [phone] Social History Tobacco Use Types Packs/Day Years Used Date Smoking Tobacco: Never Smokeless Tobacco: Never Alcohol Use Standard Drinks/Week Comments Yes 0 (1 standard drink = 0.6 oz pure alcoho l) wine few times/wk Sex Assigned at Date Recorded Female 12/20/2018 4:10 PM CDT documented as of this encounter Miscellaneous Notes Telephone Encounter - Nohemy Carpenter LPN - 05/04/2017 1:55 PM CDT Patient with history of interstim device with battery coming in for post operative check up S/Preplacement of interstim battery. Patient chart reviewed, no need for call, all records available and ready for appointment. documented in this encounter Plan of Treatment Upcoming Encounters Date Type Specialty Care Team Description 09/10/2022 Office Visit Internal Medicine Margot Branham MD [address] [address] (Wo rk) documented as of this encounter Visit Diagnoses Not on filedocumented in this encounter Care Teams Electrical Experimental Mechanic Relationship Specialty Start Date End Date Lisseth Vang MD PCP - General 04/13/16 11/14/[address] [place], [place] [address] Carlota Landeros MD MD Urology 04/10/[address] [place], [place] [address] Lisseth Vang MD PCP Family Practice 03/30/16 11/14/[address] [place], [place] [address] documented as of this encounter
--- OUTSIDE RECORDS SUMMARY | 2022-07-30 19:28 | XMS_ITS | Encounter Summary ---
:1945 Author Organization [facility] Address [address] [place] [address]. [place] [address] Care Team Providers Name Role Phone Lisseth Vang MD Primary Care Provider Carlota Landeros MD Unavailable Lisseth Vang MD Unavailable Michelle Montana RN Unavailable Reason for Visit Reason Comments Surgical Followup post operative check up S/P replacement of interstim battery Encounter Details Date Type Department Care Team Description 05/19/2017 Office Visit [facility] Urology and Carlota Landeros U rinary urgency (Primary Dx); Inst for Prostate and Urge incontinence of urine [facility] [address] [facility] 100 4th [place] [phone] Social History Tobacco Use Types Packs/Day Years Used Date Smoking Tobacco: Never Smokeless Tobacco: Never Alcohol Use Standard Drinks/Week Comments Yes 0 (1 standard drink = 0.6 oz pure alcoho l) wine few times/wk Sex Assigned at Date Recorded Female 12/20/2018 4:10 PM CDT documented as of this encounter Last Filed Vital Signs Vital Sign Reading Time Taken Comments Blood Pressure 122/75 05/19/2017 2:07 PM CDT Pulse 66 05/19/2017 2:07 PM CDT Temperature - - Respiratory Rate - - Oxygen Saturation - - Inhaled Oxygen Concentration - - Weight 86.2 kg (190 lb) 05/19/2017 2:07 PM CDT Height 169.5 cm (5' 6.75) 05/19/2017 2:07 PM CDT Body Mass Index 29.98 05/19/2017 2:07 PM CDT documented in this encounter Progress Notes Carlota Landeros MD - 05/19/2017 2:45 PM CDT Reason for Visit: Follow-up on urinary symptoms ?? Clinical Data: Ms. 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 Today patientstates, she is doing well. She still reports a mild ache at incision site which is managed with tylenol and ibuprofen. She reports that her urinary symptoms have improved since the battery replacement. Exam BP 122/75 Pulse 66 Ht 1.695 m (5' 6.75) Wt 86.2 kg (190 lb) BMI 29.98 kg/m2 No acute distress Non-labored breathing on RA Left Gluteal incision well healed ?? A/P 71 year old female with mixed incontinence s/p midurethral sling in 2015 and Interstsim placement in 2010 (left side) who presents today for follow up. Patient doing well, incision healing well andurinary symptoms improved. - Follow up PRN Patient discussed and examined with Dr. Tigre Rowley MD Urology Resident Patient was seen, evaluated and plan was formulated in conjunction with me and I agree with the above. Carlota Landeros MD documented in this encounter Nursing Notes Nohemy Carpenter LPN - 05/19/2017 2:45 PM CDT Chief Complaint Patient presents with ??? Surgical Followup post operative check up S/P replacement of interstim battery Blood pressure 122/75, pulse 66, height 1.695 m (5' 6.75), weight 86.2 kg (190 lb), not currently . Body mass index is 29.98 kg/(m^2). Patient Active Problem List Diagnosis ??? Elevated [...] ACP (advance care planning) ??? Elevated glucose Allergies Allergen Reactions ??? Propofol Other (See Comments) and Nausea and Vomiting Extreme vertigo and nausea/vomiting ??? Codeine Nausea and Vomiting ??? Codeine ??? Morphine Nausea and Vomiting ??? Oxycodone Other (See Comments) ??? Latex Rash ??? Latex Rash ??? Nickel Rash ??? Tape [Adhesive Tape] Rash Including steri-strips Current Outpatient Prescriptions Medication Sig Dispense Refill ??? estradiol (ESTRING) [address] 1 each vaginally every 3 months MD APPT./ ANNUAL EXAM FOR ANY REFILLS 1 each 0 ??? fluticasone (FLONASE) 50 MCG/ACT spray [place] 2 sprays into both nostrils daily 1 Bottle 1 ??? azelastine (ASTELIN) 0.1 % spray [place] 2 sprays into both nostrils 2 times daily 90 mL 1 ??? hydrocortisone (ANUSOL-HC) 2.5 % rectal cream Place rectally 2 times daily 30 g 3 ??? Perindopril Erbumine 4 MG TABS Take 1 tablet by mouth daily 90 tablet 3 ??? fluconazole (DIFLUCAN) 200 MG tablet Take 1 tablet by mouth once a week ??? FLUZONE HIGH-DOSE 0.5 ML injection ??? estradiol (ESTRACE VAGINAL) 0.1 MG/GM vaginal cream Place 1 g vaginally three times a week Applya small amt externally to vulva three times weekly. 30 g 12 ??? ipratropium (ATROVENT) 0.06 % nasal spray [place] 2 sprays into both nostrils 4 times daily as needed for rhinitis 1 Box 6 ??? valACYclovir (VALTREX) 1000 mg tablet Take [...] tablet by mouth 3 times daily ??? B Complex Vitamins (VITAMIN-B COMPLEX [...] tablet Take 2 tablets by mouth daily. Social History Substance Use Topics ??? Smoking status: Never Smoker ??? Smokeless tobacco: Never Used ??? Alcohol use Yes Comment: wine few times/wk Nohemy Carpenter LPN 05/19/2017 2:10 PM documented in this encounter Plan of Treatment Upcoming Encounters Date Type Specialty Care Team Description 09/10/2022 Office Visit Internal Medicine Margot Branham MD [address] [place] [phone] (Wo rk) documented as of this encounter Visit Diagnoses Diagnosis Urinary urgency - Primary Urgency of urination Urge incontinence of urine Urge incontinence documented in this encounter Care Teams Deer Farmer Relationship Specialty Start Date End Date Lisseth Vang MD PCP - General 04/13/16 11/14/[address] [place], [place] [phone] Carlota Landeros MD MD Urology 04/10/[address] [place] [address] Lisseth Vang MD PCP Family Practice 03/30/16 11/14/[address] [place] [address] Michelle Montana, MODESTA Registered Nurse Urology 05/07/17 documented as of this encounter
--- OUTSIDE RECORDS SUMMARY | 2022-07-30 19:28 | XMS_ITS | Encounter Summary ---
:1945 Author Organization [facility] Address [address] [place] [address]. [place] [address] Care Team Providers Name Role Phone Lisseth Vang MD Primary Care Provider Carlota Landeros MD Unavailable Lisseth Vang MD Unavailable Michelle Montana RN Unavailable Reason for Visit Audiology (Routine) - Closed Specialty Diagnoses / Procedures Referred By Contact Refer red To Contact Audiology Diagnoses TIN- per Pt- stated Dierkling wanted TIN Referring Dr, Unknown, [facility] Procedures TINNITUS EVALUATION [facility] [address] [place] [phone] Phone: Fax: Referral ID Status Reason Start Date Expiration Date Visits V isits Requested Authorized CSC - AUD/DE LEON Closed 05/14/2017 10/03/[phone] ([id number]) Encounter Details Date Type Department Care Team Description 05/19/2017 Office Visit [facility] Audiology Latanya Quintana, Sensorineural hearing loss, bilateral (Primary Dx); [address] [place] [address] AuD Tinnitus of both ears [address] [place] [phone] Social History Tobacco Use Types Packs/Day Years Used Date Smoking Tobacco: Never Smokeless Tobacco: Never Alcohol Use Standard Drinks/Week Comments Yes 0 (1 standard drink = 0.6 oz pure alcoho l) wine few times/wk Sex Assigned at Date Recorded Female 12/20/2018 4:10 PM CDT documented as of this encounter Progress Notes Latanya Quintana, AuD - 05/19/2017 1:00 PM CDT AUDIOLOGY REPORT SUBJECTIVE: Yamileth Sheikh, 71 year old, was seen in Audiology at the [facility] on 05/19/2017 for a tinnitus evaluation. Yamileth was seen previously on 03/20/17 and results revealed a bilaterally moderate rising to mild sensorineural hearing hearing loss. She was seen for a tinnitus evaluation at our clinic a few years ago. Yamileth reports bilateral tinnitus which has not increased in severity or intensity. She reported that at times the sounds of the tinnitus changes and occasionally affects her hearing. She is not interested in pursuing amplification. OBJECTIVE: Prior to any testing today, I explained to Ramona that I do not think it is necessary to repeat the tinnitus evaluation testing as it has been done in the past and she has not had any change in hearing or symptoms. I explained that her DPOAEs were previously absent so repeating them is not needed. Lastly, I explained that since her THI score was low (6) as well as the fact that she rated her tinnitus on a scale of 1 to 10 (1 being not troublesome) as a 1 and she is not interested in pursuing hearing aids at this time that there is no added benefit it repeating any testing today. However, she reportedthat when she met with Rudy Tracy for her hearing evaluation that it was strongly recommended that she return for a repeat tinnitus evaluation and therefore would like to repeat testing against my recommendations. Tinnitus Handicap Inventory (THI): 6/100 indicating slight or no perceived impairment Distortion product otoacoustic emissions were performed from 1.5-10 kHz and were absent bilaterally. The following test's were completed using circumaural headphones Pitch Match: Right ear: 3 kHz Left ear: 125 Hz Loudness Matching: Right ear: 15 dB above threshold (25 dB) Left ear: 20 dB above threshold (50 dB) White Noise Minimum Masking Level: Right ear: 10 dB above threshold (15 dB) Left ear: 10 dB above threshold (0 dB) Narrowband Noise Minimum Masking Level: Right ear: 15 dB above threshold (20 dB) Left ear: 0 dB above threshold (30 dB) We discussed that tinnitus is very common and that most people experience tinnitus at some point in their lives. It is most often not life threatening. We discussed the potential causes of tinnitus including hearing loss, noise exposure, medication, certain dietary factors, stress, lack of sleep, upper back and neck tension or pain, and dental or jaw issues. We discussed the role of his hearing loss in tinnitus and the effects that lack of sleep can have. We discussed the role of the hair cells, theauditory system, the limbic system and the autonomic nervous system in tinnitus and how they work together to create a feedback loop which can exacerbate the effects of tinnitus. The goal of our tinnitus management program is to come up with a multi-faceted, individualized treatment plan. I explained that with any type of tinnitus treatment there is no way to cure it but rathertreatment is aimed at learning to not focus on the tinnitus in order to break the negative feedback loop. The start of a tinnitus treatment plan is typically sound therapy, either room- level or ear-level sound generation. Room-level includes sound generators or fan noise which is intended to mask the tinnitus. Ear-level sound generation includes hearing aids and hearing aid maskers. It is important that the sound used to mask the tinnitus does not require attention. Yamileth is not interested in hearing aidsor maskers at this time. She reported interest in using music as a way to mask her tinnitus. I recommended that she look intovarious tinnitus apps to use when the tinnitus is bothersome to her. ASSESSMENT: A tinnitus evaluation was performed today. Their questions were answered and Yamileth reported the information was helpful. PLAN: It is recommended that Yamileth follow up as needed. Please call this clinic with questions regarding these results or recommendations. Rudy Covarrubias Officer [employer] [place] License #[id number] documented in this encounter Plan of Treatment Upcoming Encounters Date Type Specialty Care Team Description 09/10/2022 Office Visit Internal Medicine LogeaMargot man MD [address] [place] [address] (Wo rk) documented as of this encounter Procedures Procedure Name Priority Date/Time Associated Diagnosis Comme nts HC AUD EVOKED Routine 05/19/2017 2:54 PM Sensorineural hearing OTOACOUSTIC EMISSIONS, CDT loss, jose ateral COMPREHENSIVE Tinnitus of both ears documented in this encounter Visit Diagnoses Diagnosis Sensorineural hearing loss, bilateral - Primary Tinnitus of both ears Unspecified tinnitus documented in this encounter Care Teams General Technician Relationship Specialty Start Date End Date Lisseth Vang MD PCP - General 04/13/16 11/14/[address] [place], [place] [address] Carlota Landeros MD MD Urology 04/10/[address] [place], [place] [phone] Lisseth Vang MD PCP Family Practice 03/30/16 11/14/[address] [place], [place] [phone] Michelle Montana, RN Registered Nurse Urology 05/07/17 documented as of this encounter
--- OUTSIDE RECORDS SUMMARY | 2022-07-30 19:28 | XMS_ITS | Encounter Summary ---
:1945 Author Organization [facility] Address [address] [place] [address]. [place] [address] Care Team Providers Name Role Phone Lisseth Vang MD Primary Care Provider Carlota Landeros MD Unavailable Luz Maria Kelly MD Unavailable Lisseth Vang MD Unavailable Reason for Visit Reason Onset Date Comments Prior Auth - Medication 07/31/2016 PROCTOFOAM-HC - Denied Encounter Details Date Type Department Care Team Description 07/31/2016 Telephone [facility] Primary Care Quita Apodaca RN P hulls cover Auth - Medication Clinic (PROCTOFOAM-HC - Denied [address] [place] [address] ) [address] [place] [address] Social History Tobacco Use Types Packs/Day Years Used Date Smoking Tobacco: Never Smokeless Tobacco: Never Alcohol Use Standard Drinks/Week Comments Yes 0 (1 standard drink = 0.6 oz pure alcoho l) wine few times/wk Sex Assigned at Date Recorded Female 12/20/2018 4:10 PM CDT documented as of this encounter Miscellaneous Notes Telephone Encounter - Debby Carbone RN - 08/18/2016 11:54 AM CST Alternative Rx (proctosol 2.5 % cream) was sent to the pharmacy [employer] Telephone Encounter - Luz Maria Kelly MD - 08/18/2016 11:22 AM CST Filled medication. Let me know what else I can do. Luz Maria Villar MD [employer] Telephone Encounter - Phyllis Olivier - 08/13/2016 4:02 PM CST Images from the original note were not included. [facility] Prior Authorization Team PRIOR AUTHORIZATION DENIED Medication: PROCTOFOAM-HC - Denied Denial Date: 08/13/2016 Denial Rational: PA was denied for not failing formulary alternative or having a contraindication to the alternative:Proctosol HCL 2.5% cream. An appeal is available and will require a letter of medical mecessity. Appeal Allowed/Information: [employer] Telephone Encounter - Lisa Parada - 08/06/2016 3:27 PM CDT Images from the original note were not included. Insurance wanting additional information: Telephone Encounter - Lisa Parada - 08/06/2016 12:07 PM CDT Images from the original note were not included. [facility] Prior Authorization Team PA Initiation Medication: PROCTOFOAM-HC Insurance Company: [email or web address] [facility] Filling the Rx: [email or web address] [facility] - [address] [place] [address] Filling Pharmacy Filling Pharmacy Fax: Start Date: 08/06/2016 documented in this encounter Plan of Treatment Upcoming Encounters Date Type Specialty Care Team Description 09/10/2022 Office Visit Internal Medicine Margot Branham MD [address] [place], [place] [address] (Wo rk) documented as of this encounter Visit Diagnoses Diagnosis External hemorrhoids - Primary External hemorrhoids without mention of complication documented in this encounter Care Teams Integrated Circuits Inspector Relationship Specialty Start Date End Date Lisseth Vang MD PCP - General 04/13/16 11/14/[address] [place], [place] [phone] Carlota Landeros MD MD Urology 04/10/[address] [place], [place] [address] Luz Maria Kelly MD MD Internal Medicine 03/27/16 02/22/17 Lisseth Vang MD PCP Family Practice 03/30/16 11/14/[address] [place], [place] [address] documented as of this encounter
--- OUTSIDE RECORDS SUMMARY | 2022-07-30 19:28 | XMS_ITS | Encounter Summary ---
:1945 Author Organization [facility] Address [address] [place] [address]. [place] [address] Care Team Providers Name Role Phone Lisseth Vang MD Primary Care Provider Carlota Landeros MD Unavailable Luz Maria Kelly MD Unavailable Lisseth Vang MD Unavailable Reason for Visit Reason Onset Date Comments Nurse Advice Line 01/25/2017 Encounter Details Date Type Department Care Team Description 01/25/[address] [facility] Urology and Dee Landeros MD Nurse Advice Line Inst for Prostate and [address] Urologic Cancers [address] [place], [place] [phone] [place] [address] [place] [address] Social History Tobacco Use Types Packs/Day Years Used Date Smoking Tobacco: Never Smokeless Tobacco: Never Alcohol Use Standard Drinks/Week Comments Yes 0 (1 standard drink = 0.6 oz pure alcoho l) wine few times/wk Sex Assigned at Date Recorded Female 12/20/2018 4:10 PM CDT documented as of this encounter Miscellaneous Notes Telephone Encounter - Nohemy Carpenter LPN - 01/25/2017 1:43 PM CDT Appointment make for Dr. Landeros. Nohemy Carpenter LPN Telephone Encounter - Nohemy Carpenter LPN - 01/25/2017 1:43 PM CDT ----- Message from Abbie Coombs sent at 01/25/2017 10:42 AM CDT ----- Regarding: Nurse visit appt Contact: Pt called requesting to be put Maxines schedule to have her internal stim battery checked. I called over to triage and spoke with Danita, she suggested that I send you a message to help coordinate that appt. Please call back pt to discuss. Thanks. MB Please DO NOT send this message and/or reply back to sender. Call Center Representatives DO NOT respond to messages. documented in this encounter Plan of Treatment Upcoming Encounters Date Type Specialty Care Team Description 09/10/2022 Office Visit Internal Medicine LogMargot sadler MD [address] [place] [phone] (Wo rk) documented as of this encounter Visit Diagnoses Not on filedocumented in this encounter Care Teams Detasseling Crew Supervisor Relationship Specialty Start Date End Date Lisseth Vang MD PCP - General 04/13/16 11/14/[address] [place], [place] [address] Carlota Landeros MD MD Urology 04/10/[address] [place], [place] [address] Luz Maria Kelly MD MD Internal Medicine 03/27/16 02/22/17 Lisseth Vang MD PCP Family Practice 03/30/16 11/14/[address] [place], [place] [phone] documented as of this encounter
--- OUTSIDE RECORDS SUMMARY | 2022-07-30 19:28 | XMS_ITS | Encounter Summary ---
:1945 Author Organization [facility] Address [address] [place] [address]. [place] [address] Care Team Providers Name Role Phone Lisseth Vang MD Primary Care Provider Carlota Landeros MD Unavailable Lisseth Vang MD Unavailable Encounter Details Date Type Department Care Team Description 04/27/2017 [facility] Carlota Landeros Ov eractive bladder and Procedure AMD (Primary Dx) [facility] [address] [facility] [address] [place], [place] 5th Floor [address] [place], [place] [phone] [address] (Work) [phone] Social History Tobacco Use Types Packs/Day Years [...] documented in this encounter Discharge Instructions Discharge InstructionsDemetris Stein RN - 04/27/2017 12:26 PM CDT [facility] Home [...] is: Dr. Carlota Landeros, Prostate and Urology: [phone] Or dial [phone] and ask for the resident security system sales consultant for: Urology For emergency care, call the: [facility]: [phone] (TTY for hearing impaired: [phone]) documented in this encounter Medications at Time [...] daily for 5 days azelastine (ASTELIN) 0.1 [place] 2 sprays into 90 mL 1 01/03/2018 [...] fluconazole (DIFLUCAN) Take 1 tablet by 0 016 12/07/2017 200 MG mouth once a week tabletIndications: Essential hypertension with goal blood pressure less than 140/90, Hyperlipidemia LDL goal <100, Other specified peripheral vascular diseases (H), Vitamin D deficiency fluticasone (FLONASE) 50 [place] 2 sprays into 1 Bottle 1 01/03/2018 [...] times daily creamIndications: External hemorrhoids ipratropium (ATROVENT) [place] 2 sprays into 1 Box 6 05/201607/27/2017 [...] TURMERIC PO Take 1 tablet by 0 04/10/ 019 mouth 2 times daily valACYclovir (VALTREX) [...] Office Visit Internal Medicine Margot Branham MD [address] [place] [address] [phone] (wo rk) documented as of this encounter Procedures Procedure Name Priority Date/Time Associated Diagnosis Comme nts REPLACEMENT, PULSE 04/27/2017 11:15 AM Urinary Urgency and GENERATOR, NEUROSTIMULATOR CDT Urge Incontine nce Special Needs //Confirmed Nani Baer. 04/23 lmLatex AllergyH&P to be Completed by Primary Care Physician EKG CARDIAC - HIM SCAN 09/01/2007 12:00 AM SALES SERVICE TECHNICIAN documented in this encounter Results EKG CARDIAC - HIM SCAN (09/01/2007 12:00 AM SALES SERVICE TECHNICIAN) Specimen (Source) Anatomical Location Collection Method / Collectio n Time Received Time / Laterality Volume 09/01/2007 Narrative This result has an attachment that is no t available. Provider Scan ECG ORDERABLES documented in this encounter Visit Diagnoses Diagnosis Overactive bladder - Primary Hypertonicity of bladder documented in this encounter Administered Medications Inactive Administered Medications - up to 3 most recent administrations Medication Order MAR Action Action Date Dose Rate Site lactated ringers infusion New Bag 04/27/2017 10:37 [...] Pre-procedure documented in this encounter Care Teams Failure Analysis Technician Relationship Specialty Start Date End Date Lisseth Vang MD PCP - General 04/13/16 11/14/[address] [place], [place] [address] Carlota Landeros MD MD Urology 04/10/[address] [place] [address] Lisseth Vang MD PCP Family Practice 03/30/16 11/14/[address] [place], [place] [address] documented as of this encounter
--- OUTSIDE RECORDS SUMMARY | 2022-07-30 19:28 | XMS_ITS | Encounter Summary ---
:1945 Author Organization [facility] Address [address] [place] [address]. [place] [address] Care Team Providers Name Role Phone Lisseth Vang MD Primary Care Provider Carlota Landeros MD Unavailable Luz Maria Kelly MD Unavailable Lisseth Vang MD Unavailable Reason for Visit Reason Onset Date Comments Results 07/02/2016 Encounter Details Date Type Department Care Team Description 07/02/2016 Telephone [facility] for Anh Costa APR N Results Cardiovascular Disease [place] [phone] Social History Tobacco Use Types Packs/Day Years Used Date Smoking Tobacco: Never Smokeless Tobacco: Never Alcohol Use Standard Drinks/Week Comments Yes 0 (1 standard drink = 0.6 oz pure alcoho l) wine few times/wk Sex Assigned at Date Recorded Female 12/20/2018 4:10 PM CDT documented as of this encounter Miscellaneous Notes Telephone Encounter - nAh Costa APRN MARINE PAINTER - 07/02/2016 8:43 AM CDT Patient called concerned about day of elevated BP's 140's/70's and abnormal labs she had at [facility] with GFR at 55% with normal creatinine and glucose 110. GFR in January was normal at 79% with normal creatinine. We discussed how these labs can vary depending on hydration etc. She denies symptoms ofUTI. Recommend she hydrate well and we will check labs at her upcoming apt. In a few weeks. If her GFR has changed significantly will consider referral to nephrology. If her BP remains elevated will adjust medication. documented in this encounter Plan of Treatment Upcoming Encounters Date Type Specialty Care Team Description 09/10/2022 Office Visit Internal Medicine Margot Branham MD [address] [address] (Wo rk) documented as of this encounter Visit Diagnoses Not on filedocumented in this encounter Care Teams Conveyor System Operator Relationship Specialty Start Date End Date Lisseth Vang MD PCP - General 04/13/16 11/14/[address] [place], [place] [address] Carlota Landeros MD MD Urology 04/10/[address] [place], [place] [address] Luz Maria Kelly MD MD Internal Medicine 03/27/16 02/22/17 Lisseth Vang MD PCP Family Practice 03/30/16 11/14/[address] [place], [place] [address] documented as of this encounter
--- OUTSIDE RECORDS SUMMARY | 2022-07-30 19:28 | XMS_ITS | Encounter Summary ---
:1945 Author Organization [facility] Address [address] [place] [address]. [place] [address] Care Team Providers Name Role Phone Lisseth Vang MD Primary Care Provider Carlota Landeros MD Unavailable Lisseth Vang MD Unavailable Reason for Visit Audiology - Closed Specialty Diagnoses / Procedures Referred By Contact Refer red To Contact Diagnoses Hearing loss, unspecified laterality Lisseth Vang MD [address] [facility] [address] [place], [place] [address] Referral ID Status Reason Start Date Expiration Date Visits Requ ested Visits Authorized [id number] Closed 01/28/2017 01/28/2018 1 1 Encounter Details Date Type Department Care Team Description 03/20/2017 Office Visit [facility] Audiology Emily Hua, Sensorineural hearing loss o f right ear (Primary Dx); 9 [facility] SE AuD Mixed hearing loss of left ear; 4th Floor [address] [place] [address] SE [place] [address] [phone] Social History Tobacco Use Types Packs/Day Years Used Date Smoking Tobacco: Never Smokeless Tobacco: Never Alcohol Use Standard Drinks/Week Comments Yes 0 (1 standard drink = 0.6 oz pure alcoho l) wine few times/wk Sex Assigned at Date Recorded Female 12/20/2018 4:10 PM CDT documented as of this encounter Progress Notes Emily Hua - 03/20/2017 8:00 AM CDT AUDIOLOGY REPORT SUBJECTIVE: Yamileth Sheikh is a 71 year old female who was seen in the Audiology Clinic at the [facility] for audiologic evaluation, referred by Lisseth Vang. The patient has been seen previously in this clinic on 03/14/2015 for assessment and results indicated mild/moderate risingsensorineural hearing loss. The patient reports a low frequency tinnitus that sounds like airplane/refrigerator. The patient denies bilateral otalgia, aural fullness or dizziness. The patient notes difficulty with communication in a variety of listening situations, including listening to sports announcers and low men's voices. She has some history of noise exposure and some family history of hearing loss. She reports seeing Dr. Mcgregor in the past for hearing loss. OBJECTIVE: Fall Risk Screen: 1. Have you fallen two or more times in the past year? No 2. Have you fallen and had an injury in the past year? No Timed Up and Go Score (in seconds): not tested Is patient a fall risk? No Referral initiated: No Fall Risk Assessment Completed by Audiology Otoscopic exam indicates ears are clear of cerumen bilaterally. Pure Tone Thresholds assessed using conventional audiometry with good reliability from 250-8000 Hz bilaterally using insert earphones and circumaural headphones. RIGHT: moderate rising to mild sensorineural hearing loss LEFT: moderate rising to mild mixed hearing loss (primarily sensorineural with conductive components at 250-500 Hz) Tympanogram: RIGHT: normal eardrum mobility LEFT: normal eardrum mobility Reflexes (reported by stimulus ear): RIGHT: Ipsilateral is present at normal levels RIGHT: Contralateral is absent at frequencies tested LEFT: Ipsilateral is absent at frequencies tested LEFT: Contralateral is present but elevated Speech Community Development Planner Threshold: RIGHT: 25 dB HL LEFT: 25 dB HL Word Recognition Score: RIGHT: 100% at 65 dB HL using NU-6 recorded word list. LEFT: 96% at 65 dB HL using NU-6 recorded word list. 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 Today???s results were discussed with the patient in detail. PLAN: Patient was counseled regarding hearing loss and impact on communication. Patient is not interested in wearing hearing devices. It is recommended that the patient return for tinnitus evaluation or hearing aid evaluation if she changes her mind about wearing devices. Also consider health psychologist evaluation for help with tinnitus if desired. Consider returning to ENT to monitor mixed hearingloss component. Re-evaluate annually or sooner if concerns. Please call this clinic with questions regarding these results or recommendations. Steven Griffin, [facility] Board Certified in Audiology Vocational Aide [place]: [address] documented in this encounter Plan of Treatment Upcoming Encounters Date Type Specialty Care Team Description 09/10/2022 Office Visit Internal Medicine Margot Branham MD [address] [address] (Wo rk) documented as of this encounter Procedures Procedure Name Priority Date/Time Associated Diagnosis Comme nts HC TYMPANOMETRY AND Routine 03/20/2017 9:50 AM Sensorineural h earing REFLEX THRESHOLD CDT loss of right e ar MEASUREMENTS Mixed hearing loss of left ear Tinnitus of both ears HC COMPREHENSIVE HEARING Routine 03/20/2017 9:50 AM Sensorineu ral hearing TEST CDT loss of right ea r Mixed hearing loss of left ear Tinnitus of both ears AUDIOGRAM/TYMPANOGRAM - 03/20/2017 8:01 AM INTERFACE CDT documented in this encounter Results AUDIOGRAM/TYMPANOGRAM - INTERFACE (03/20/2017 8:01 AM CDT) Specimen (Source) Anatomical Collection Method Collection Time Re ceived Time Location / / Volume Laterality 03/20/2017 8:01 AM CDT Narrative This result has an attachment that is no t available. Provider Unknown PROCEDURES documented in this encounter Visit Diagnoses Diagnosis Sensorineural hearing loss of right ear - Primary Mixed hearing loss of left ear Tinnitus of both ears Unspecified tinnitus documented in this encounter Care Teams Polisher Hand Relationship Specialty Start Date End Date Lisseth Vang MD PCP - General 04/13/16 11/14/[address] [place] [address] Carlota Landeros MD MD Urology 04/10/[address] [place] [address] Lisseth Vang MD PCP Family Practice 03/30/16 11/14/[address] [place] [address] documented as of this encounter
--- OUTSIDE RECORDS SUMMARY | 2022-07-30 19:28 | XMS_ITS | Encounter Summary ---
:1945 Author Organization [facility] Address [address] [facility] [address] Care Team Providers Name Role Phone Lisseth Vang MD Primary Care Provider Carlota Landeros MD Unavailable Luz Maria Kelly MD Unavailable Lisseth Vang MD Unavailable Reason for Visit Reason Comments RECHECK Encounter Details Date Type Department Care Team Description 07/21/2016 Office Visit [facility] [place], Screening for diabetes [facility] MD Lisseth mellitus (Primary Dx) [place] [facility] PROF[facility] [address] [place], [place] [address]RD [address] [address] [address] [facility] S [phone] [facility] [address] (Work) [place], [place] [address] [phone] Social History Tobacco Use Types Packs/Day Years Used Date Smoking Tobacco: Never Smokeless Tobacco: Never Alcohol Use Standard Drinks/Week Comments Yes 0 (1 standard drink = 0.6 oz pure alcoho l) wine few times/wk Sex Assigned at Date Recorded Female 12/20/2018 4:10 PM CDT documented as of this encounter Last Filed Vital Signs Vital Sign Reading Time Taken Comments Blood Pressure 156/81 07/21/2016 11:57 AM CDT Pulse 79 07/21/2016 11:57 AM CDT Temperature - - Respiratory Rate - - Oxygen Saturation - - Inhaled Oxygen Concentration - - Weight 81.4 kg (179 lb 6.4 oz) 07/21/2016 11:57 AM CDT Height 169.5 cm (5' 6.75) 07/21/2016 11:57 AM CDT Body Mass Index 28.31 07/21/2016 11:57 AM CDT documented in this encounter Progress Notes Lisseth Vang MD - 07/20/2016 1:06 PM CDT Ramona is a 70 year old female who presents today for follow-up on hysteroscopy - at [facility]. HPI: Had hysteroscopy and vomited after the procedure so they alerted her to the possibility of diabetes ?? Last Annual exam 01/2016. ?? Has appointment with Dr. Costa in two days ?? Labs are ordered but needs to be fasting. ROS: General: weight gain Head/Eyes: none Ears/Nose/Throat: ringing in ears Cardiovascular: none Respiratory: none Gastrointestinal: none Breast: none Genitourinary:constipation Sexual Function: none Musculoskeletal: joint pain and swelling Skin: none Neurological: none Mental Health: none Endocrine: none PAST MEDICAL HISTORY: 1) 1 para 1 status post in 1978. Has uterine fibroids. Not on hormone therapy 2) Osteoarthritis of the right hip Minimal [...] colonoscopy April 2010 repeat in 5 years Exercise: no routine Diet: Ok Supplements: Vitamin D and EFA Seeing Boxing Instructor HCM: Colonosocopy (will check) Work: Retired March 2015. Has a home in [facility]. PAST SURGICAL HISTORY: 1) Phase II Interstim:Implant Stimulator and Leads sacral nerve by Dr. Landeros on 05/19/2011 and Midurethral sling on 03/26/16. No stress or urge incontinence. 2) Hip replacement 09/09 3) Status post breast reduction 1996. 4) 4) FAMILY HISTORY: Strong Family HX of colon Cancer. Past Medical History Diagnosis Date ??? Fibroid uterus ??? Deviated nasal septum Dr Baer ENT ??? Osteoarthritis right hip ??? Labile hypertension no medication ??? Urinary problem 2011 has a bladder implant, interstim ??? Hyperlipidemia ASCVD risk 8.1%, declines statin ??? Elevated glucose Current Outpatient Prescriptions Medication Sig Dispense Refill ??? Perindopril Erbumine 2 MG TABS Take 1 tablet by mouth daily 90 tablet 3 ??? fluticasone (FLONASE) 50 MCG/ACT nasal spray ??? FLUZONE HIGH-DOSE 0.5 ML injection ??? estradiol (ESTRACE VAGINAL) 0.1 MG/GM vaginal cream Place 1 g vaginally three times a week Applya small amt externally to vulva three times weekly. 30 g 12 ??? azelastine (ASTELIN) 0.1 % nasal spray [place] 1-2 sprays into both nostrils daily as needed 90 mL1 ??? ipratropium (ATROVENT) 0.06 % nasal spray [place] 2 sprays into both nostrils 4 times daily as needed for rhinitis 1 Box 6 ??? estradiol (ESTRING) [address] 1 each vaginally every 3 months 1 each 4 ??? valACYclovir (VALTREX) 1000 mg tablet Take 1 tablet (1,000 mg) by mouth 3 times daily as needed 20 tablet 1 ??? hydrocortisone-pramoxine (PROCTOFOAM-HC) rectal foam Place 1 applicator rectally 2 times daily 15 g 6 ??? Calcium-Magnesium (ASHLYN/MAG CITRATE) 250-125 MG TABS [...] tablet Take 2 tablets by mouth daily. Allergies: Propofol, Morphine, Codeine, Nickel, Latex and Tape VITALS: Blood pressure 148/83, pulse 75, height 1.676 m (5' 6), weight 84.278 kg (185 lb 12.8 oz). There isno weight on file to calculate BMI. PHYSICAL EXAM: Constitutional: Overweight woman in no acute distress. Psychological: appropriate mood. Eyes: anicteric, normal extra-ocular movements, Diagnoses and associated orders for this visit: Screening for diabetes: - orders are in per Dr. Costa and she will obtain tmw when fasting. documented in this encounter Plan of Treatment Upcoming Encounters Date Type Specialty Care Team Description 09/10/2022 Office Visit Internal Medicine Margot Branham MD [address] [id number] (Wo rk) documented as of this encounter Visit Diagnoses Diagnosis Screening for diabetes mellitus - Primar y documented in this encounter Care Teams Supervisor Food Checkers And Cashiers Relationship Specialty Start Date End Date Lisseth Vang MD PCP - General 04/13/16 11/14/[address] [place], [place] [address] Carlota Landeros MD MD Urology 04/10/[address] [place], [place] [address] Luz Maria Kelly MD MD Internal Medicine 03/27/16 02/22/17 Lisseth Vang MD PCP Family Practice 03/30/16 11/14/[address] [facility] [address] [place] [address] documented as of this encounter
--- OUTSIDE RECORDS SUMMARY | 2022-07-30 19:28 | XMS_ITS | Encounter Summary ---
:1945 Author Organization [facility] Address [address] [place] [address]. [place] [address] Care Team Providers Name Role Phone Lisseth Vang MD Primary Care Provider Carlota Landeros MD Unavailable Luz Maria Kelly MD Unavailable Lisseth Vang MD Unavailable Encounter Details Date Type Department Care Team Description 07/06/[address] [facility] Anh Costa hypertension Cardiovascular Disease Salma, [facility] CASE COORDINATOR wit h goal blood Prevention pressure less than [address] [facility] [address] (Primary Dx) [address] [place] [address] Social History Tobacco Use Types [...] Internal Medicine LogMargot sadler MD [address] [facility] [address] [place] [address] (Wo rk) documented as of this encounter Visit Diagnoses Diagnosis Essential hypertension with goal blood p ressure less than 130/80 - Primary documented in this encounter Care Teams Engineer Steam Relationship Specialty Start Date End Date Lisseth Vang MD PCP - General 04/13/16 11/14/[address] [place] [address] Carlota Landeros MD MD Urology 04/10/[address] [place], [place] [address] Luz Maria Kelly MD MD Internal Medicine 03/27/16 02/22/17 Lisseth Vang MD PCP Family Practice 03/30/16 11/14/[address] [place] [address] documented as of this encounter
--- OUTSIDE RECORDS SUMMARY | 2022-07-30 19:28 | XMS_ITS | Encounter Summary ---
:1945 Author Organization [facility] Address [facility] [place] [place] [address] Care Team Providers Name Role Phone Lisseth Vang MD Primary Care Provider Carlota Landeros MD Unavailable Luz Maria Kelly MD Unavailable Lisseth Vang MD Unavailable Reason for Visit Reason Onset Date Comments Refill Request 12/03/2016 flonase Encounter Details Date Type Department Care Team Description 12/03/2016 Refill [facility] Women's Nurse, [facility] Refill Request (flonase) [facility] [place] [address] Professional Bld[address] [facility] [address],[place] [address] [place], [place] [phone] Social History Tobacco Use Types Packs/Day Years Used Date Smoking Tobacco: Never Smokeless Tobacco: Never Alcohol Use Standard Drinks/Week Comments Yes 0 (1 standard drink = 0.6 oz pure alcoho l) wine few times/wk Sex Assigned at Date Recorded Female 12/20/2018 4:10 PM CDT documented as of this encounter Miscellaneous Notes Telephone Encounter - Mery Trujillo RN - 12/03/2016 10:42 AM CST Refill received for Flonase, unable to refill per [facility] RN protocol, will send to Dr. Vang IDE SALESMAN documented in this encounter Plan of Treatment Upcoming Encounters Date Type Specialty Care Team Description 09/10/2022 Office Visit Internal Medicine Margot Branham MD [address] [address] (Wo rk) documented as of this encounter Visit Diagnoses Diagnosis Seasonal allergic rhinitis - Primary Allergic rhinitis, cause unspecified Chronic rhinitis documented in this encounter Care Teams Clipman Relationship Specialty Start Date End Date Lisseth Vang MD PCP - General 04/13/16 11/14/[address] [address] [place], [place] [address] Carlota Landeros MD MD Urology 04/10/[address] [place], [place] [address] Luz Maria Kelly MD MD Internal Medicine 03/27/16 02/22/17 Lisseth Vang MD PCP Family Practice 03/30/16 11/14/[address] [place] [address] [place], [place] [address] documented as of this encounter
--- OUTSIDE RECORDS SUMMARY | 2022-07-30 19:29 | XMS_ITS | Encounter Summary ---
:1945 Author Organization [facility] Address [address] [place] [address]. [place] [address] Care Team Providers Name Role Phone Balbir Simpson MD Primary Care Provider [phone] Carlota Landeros MD Unavailable Balbir Simpson MD Unavailable [phone] Reason for Visit Reason Comments Surgical Followup Post op Encounter Details Date Type Department Care Team Description 05/08/2015 Office Visit [facility] AND Carlota Landeros Mix ed incontinence (Primary Dx); [facility] Atrophic vaginitis [facility] [id number] [place], [place] [address] [address] [address], [address] [place] [address] (Work) [place] [address] [place] [address] Social History Tobacco Use Types Packs/Day Years Used Date Smoking Tobacco: Never Smokeless Tobacco: Never Alcohol Use Standard Drinks/Week Comments Yes 0 (1 standard drink = 0.6 oz pure alcoho l) wine few times/wk Sex Assigned at Date Recorded Female 12/20/2018 4:10 PM CDT documented as of this encounter Last Filed Vital Signs Vital Sign Reading Time Taken Comments Blood Pressure 150/89 05/08/2015 10:45 AM CDT Pulse 66 05/08/2015 10:45 AM CDT Temperature - - Respiratory Rate - - Oxygen Saturation - - Inhaled Oxygen Concentration - - Weight 79.9 kg (176 lb 3.2 oz) 05/08/2015 10:45 AM CDT Height 168.9 cm (5' 6.5) 05/08/2015 10:45 AM CDT Body Mass Index 28.01 05/08/2015 10:45 AM CDT documented in this encounter Progress Notes Carlota Landeros MD - 05/08/2015 10:51 AM CDT Reason for Visit: 2 week post op for A miniarc midurethral sling on 03/26/15. Clinical Data: Ms. Yamileth Sheikh is a 69 year old year old female with a history of the above. She returns today for her post operative visit. She states that she is doing well. No stress incontinence, no urinary urgency no urge inontinence. She is very pleased. She is having no trouble voiding. She also underwent InterStim placement on 05/19/2011 and her symptoms have generally improved but she continued to c/o a weak stream. Urinary accidents have become rare, but she leaked small volumes with coughing, sneezing, or when nearing a restroom sometimes she can't get her pants all the way down before she leaks a little bit. The patient had urodynamics completed in 02/2011 prior to InterStim placement, which demonstrated normal bladder capacity, good bladder compliance, a large stress leak at Pabd 153 cm H2O at a volume of 319 ml and Valsalva voiding with a low maximum voiding Pabd 20 cm H2O.There was no obvious detrusor contraction and PVR was 150 ml. Repeat UDS after the interstim implant (08/2012) 1. Normal bladder capacity, 629 ml. 2. Good bladder compliance. 3. Maximum voiding Pdet 13 cm H2O; once moved to [facility] patient voided with Valsalva voiding with maximum voiding Pabd 55 cm H2O. 4. Incomplete bladder emptying, PVR 150 ml; however, pretest PVR was only 60 ml. 5. Small volume stress urinary incontinence at Pabd 125 cm H2O at a volume of 216 ml; however, the patient did not leak with Valsalva with Pabd 88 cm H2O at a volume of 435 ml. 6. Left hemipelvis InterStim lead on terminal manager imaging. RU today is 0 cc on bladder scan by nursing On exam: Residual mild urethral mobility Vaginal incision healed well No evidence of mesh extrusion or erosion A/P 69 year old female with mixed incontinence s/p midurethral sling doing well. -discontinue restrictions of lifting and sexual activity -f/u prn. Thank you for allowing me to participate in the care of .Yamileth Sheikh and I will keep you updated on her progress. Carlota Landeros MD documented in this encounter Nursing Notes Bibi Lind CMA - 05/08/2015 10:45 AM CDT Chief Complaint Patient presents with ??? Surgical Followup Post op Initial Ht 1.689 m (5' 6.5) Wt 79.924 kg (176 lb 3.2 oz) BMI 28.02 kg/m2 Estimated body mass index is 28.02 kg/(m^2) as calculated from the following: Height as of this encounter: 1.689 m (5' 6.5). Weight as of this encounter: 79.924 kg (176 lb 3.2 oz). BP completed using cuff size: large ADITYA Hernandez documented in this encounter Plan of Treatment Upcoming Encounters Date Type Specialty Care Team Description 09/10/2022 Office Visit Internal Medicine Margot Branham MD [address] [id number] (Wo rk) documented as of this encounter Visit Diagnoses Diagnosis Mixed incontinence - Primary Mixed incontinence urge and stress (male )(female) Atrophic vaginitis Postmenopausal atrophic vaginitis documented in this encounter Care Teams Creosoting Engineer Relationship Specialty Start Date End Date Balbir Simpson, PCP - General Internal Medicine 03/26/15 04/12/16 Carlota Landeros MD MD Urology 04/10/[id number] [place] [address] Balbir Simpson, Referring Physician Internal Medicine 04/0303/29/16 documented as of this encounter
--- OUTSIDE RECORDS SUMMARY | 2022-07-30 19:29 | XMS_ITS | Encounter Summary ---
:1945 Author Organization [facility] Address [address] [facility] [place] [address] Care Team Providers Name Role Phone Balbir Simpson MD Primary Care Provider [phone] Reason for Visit Auth/Cert - Closed Specialty Diagnoses / Procedures Referred By Contact Refer red To Contact Surgery Diagnoses Stress Incontinence Ur Periop Procedures CYSTOSCOPY, SLING TRANSVAGINAL [address] [place] [address] Phone: Fax: Referral ID Status Reason Start Date Expiration Date Visits Requ ested Visits Authorized [id number] Closed 1 1 Encounter Details Date Type Department Care Team Description 03/26/2015 Surgery [facility] Carlota Landeros, Midurethral Sling and PeriOp Services Cystoscopy [address] [facility] [address] [place] [address] [address] [place] [address] (Wo rk) Surgery Details Date/Time Status Location OR Service Patient Case Class Case Tr auma Class Type Case? 03/26/15 9:05 Posted UR OR UR OR Urology Same Day AM 03 Surgery Panel 1 Procedure LRB Anes Op Region Wound Class Commen ts Midurethral Sling and N/A MAC Vagina II-Clean Conta minated Midurethral Sling and Cystoscopy Cystoscopy Surgeon Surgeon Role Service Panel Carlota Landeros MD Primary Urology 1 Eliu Villatoro MD Resident - Assisting 1 Special Needs Interstim documented in this encounter Social History Tobacco [...] Sign Reading Time Taken Comments Blood Pressure 145/69 03/26/2015 12:44 PM CDT Pulse 73 03/26/2015 7:38 AM CDT Temperature 36.4 ??C (97.5 ??F) 03/26/2015 12:44 PM CDT Respiratory Rate 16 03/26/2015 12:44 PM CDT Oxygen Saturation 97% 03/26/2015 12:44 PM CDT Inhaled Oxygen Concentration - - Weight 80.5 kg (177 lb 7.5 oz) 03/26/2015 7:38 AM CDT Height 169.5 cm (5' 6.75) 03/26/2015 7:38 AM CDT Body Mass Index 28 03/26/2015 7:38 AM CDT documented in this encounter Discharge Instructions Discharge InstructionsMila Castillo RN - 03/26/2015 10:23 AM CDT [facility] Adult Discharge Orders & Instructions For 24 hours after surgery 1. Get plenty of rest. A responsible adult must stay with you for at least 24 hours after you leave the hospital. 2. Do not drive or use heavy [...] Do not make important or legal decisions. Call your doctor for any of the followin. Signs of infection (fever, growing tenderness at the surgery site, a large amount of drainage or bleeding, severe pain, foul-smelling drainage, redness, swelling). 2. It has been over 8 to 10 hours since surgery and you are still not able to urinate (pass water). 3. Headache for over 24 hours. 4. Numbness, tingling or weakness the day after surgery (if you had spinal anesthesia). To contact a doctor, call Discharge Instructions: Following a Cystoscopy/Stent and/or Ureteroscopy Drainage: ??? Urine may be slightly bloody but should taper off in a few days. ??? You may have some frequency and urgency for a few days. Comfort: ??? A burning sensation when urinating is common. Drinking extra fluids helps decrease this burning feeling and also helps to clear the bloody urine. ??? Mild abdominal cramps may occur for a few days. Baths: ??? Daily tub baths aide in passing urine. ??? Frequent use of bubble bath is discouraged since it encourages urinary tract infections. Report to your doctor at once if you experience: ??? Inability to pass your urine ??? Continuous or heavy bleeding ??? Severe Pain ? ? Elevated temperature > than 101.5 for 24 hours Home Activity: ??? The day of surgery spend a quiet evening at home. ??? Increase activity as tolerated. Rev. 02/12 Scopolamine Patch (Absorbed through the skin) The Scopolamine Patch prevents nausea and vomiting caused by motion sickness or anesthesia and surgery in adults. Brand Name(s): Transderm Scop, Transderm-Scope There may be other brand names for this medicine. When This Medicine Should Not Be Used: You should not use this medicine if you have had an allergic reaction to scopolamine, or if you havenarrow angle glaucoma. How to Use This Medicine: ??? Your doctor will tell you how many patches to use, where to apply them, and how often to apply them. ??? Do not use more patches or apply them more often than your doctor tells you to. ??? This medicine comes with patient instructions. Read and follow these instructions carefully. Askyour doctor or pharmacist if you have any questions. ??? To prevent motion sickness, apply the patch at least 4 hours before you need it. ??? Wash and dry your hands thoroughly before applying the patch. ??? Leave the patch in its sealed wrapper until you are ready to put it on. Tear the wrapper open carefully. NEVER CUT the wrapper or the patch with scissors. Do not use any patch that has been cut by accident. ??? Take the liner off the sticky side before applying. ??? Apply the patch to dry, hairless skin behind the ear. ??? If the patch is loose or falls off, apply a new patch at a different place behind the ear. ??? After you take off the patch, wash the place where the patch was and your hands thoroughly. ??? Only one patch should be used at any time. If a dose is missed: If you forget to wear or change a patch, put one on as soon as you can. If it is almost time to put on your next patch, wait until then to apply a new patch and skip the one you missed. Do not apply extra patches to make up for a missed dose. How to Store and Dispose of This Medicine: ??? Store the patches at room temperature in a closed container, away from heat, moisture and directlight. ??? Fold the used patch in half with the sticky sides together. Throw any used patch away so that children or pets cannot get to it. You will also need to throw away old patches after the expiration date has passed. ??? Keep all medicine away from children and never share your medicine with anyone. Ask your doctor or pharmacist before using any other medicine, including ngaf-hef-gibtegn medicines,vitamins, and herbal products. Tell your doctor if you are using any medicines that make you sleepy. These include sleeping pills, cold and allergy medicine, narcotic pain relievers and sedatives. ??? Tell your doctor if you are using any medicine that make you sleepy. These include sleeping pills, abraham and allergy medicine, narcotic pain relievers and sedatives. ??? Do not drink alcohol while you are using this medicine. Warnings While Using This Medicine: ??? Make sure your doctor knows if you are or or if you have glaucoma, prostate problems, trouble urinating, blocked bowels, liver disease, kidney disease or a history of seizures or mental illness. ??? This medicine can cause blurring of vision and other vision problems if it comes in contact withthe eyes. This medicine may also cause problems with urination. If any of these reactions occur, remove the patch and call your doctor right away. ??? This medicine may make you dizzy or drowsy. Avoid driving, using machines, or doing anything else that could be dangerous if you are not alert. If you plan to participate in underwater sports, thismedicine may cause disorienting effects. If this is a concern for you, talk with your doctor. ??? This medicine may make you sweat less and cause your body to get too hot. Be careful in hot weather, when you are exercising or if using sauna or whirlpool. ??? Make sure any doctor or dentist who treats you knows that you are using this medicine. This medicine may affect the results of certain medical tests. ??? Skin currie have been reported at the patch site in several patients wearing an aluminized transdermal system during a magnetic resonance imaging scan (MRI). Because Transderm Scop contains aluminum, it is recommended to remove the system before undergoing an MRI. Call your doctor right away if you notice any of these side effects: ??? Allergic reaction: Itching or hives, swelling in your face or hands, swelling or tingling in your mouth or throat, chest tightness, trouble breathing ??? Blurred vision ??? Confusion or memory loss ??? Fast, slow or uneven heartbeat ??? Lightheadedness, dizziness, drowsiness or fainting ??? Seeing, hearing or feeling things that are not there ??? Severe eye pain ??? Trouble urinating If you notice these less serious side effects, talk with your doctor: ??? Dry mouth ??? Dry, itchy or red eyes ??? Restlessness ??? Skin rash or redness If you notice other side effects that you think are caused by this medicine, tell your doctor immediately. Rev. 01/2014 documented in this encounter Medications at Time of Discharge Medication Sig Dispensed Refills Start Date End Date amoxicillin (AMOXIL) 500 Take 2 capsules by 0 MG capsule mouth as needed 1 hour before dental procedures cholecalciferol (VITAMIN Take 2 tablets by 0 D3) 1000 UNIT tablet mouth daily. OTHER MEDICAL SUPPLIES ROCÍO stockings knee 0 length USE DIRECTED . fluticasone (FLONASE) 50 [place] 2 sprays into 1 Package 6 04/13/2015 MCG/ACT nasal both nostrils daily sprayIndications: Nasal obstruction azelastine (ASTELIN) 137 [place] 1-2 sprays 90 mL 1 01/0701/10/2016 MCG/SPRAY nasal into both nostrils 2 sprayIndications: times daily Seasonal allergies B Complex Vitamins Take 1 tablet by 0 04/10/2019 (VITAMIN-B COMPLEX PO) mouth daily CALCIUM CITRATE-VITAMIN D Take 2 tablets by mouth daily Calcium-500 m g 0 06/05/2015 PO Vitamin d-150 iu estradiol (ESTRACE Place 2 g vaginally 42.5 g 12 01/08/20 15 01/10/2016 VAGINAL) 0.1 MG/GM three times a week vaginal creamIndications: After using daily Atrophic vaginitis for 2 weeks. estradiol (ESTRING) [address] 1 each 1 each 4 5 01/10/2016 vaginal ringIndications: vaginally every 3 Vaginal dryness months fish oil-omega-3 fatty Take 1 capsule by 0 04/10/2019 acids (OMEGA 3) 1000 MG mouth 2 times daily capsule GARLIC PO Take 1 tablet by 0 04/10/20 19 mouth 3 times daily Tricia, Zingiber Take 1 capsule by 0 0 04/10/2019 officinalis, (TRICIA PO) mouth daily Glucosamine-Chondroitin Take 1 tablet by 0 04/10/2019 (GLUCOSAMINE CHONDR mouth. With MSN COMPLEX PO) hydrocortisone-pramoxine Place 1 applicator 15 g 6 03/201501/10/2016 (PROCTOFOAM-HC) rectal rectally 2 times foamIndications: External daily hemorrhoids ipratropium (ATROVENT) [place] 2 sprays into 1 Box 6 03/0401/10/2016 0.06 % nasal both nostrils 4 sprayIndications: Chronic times daily as rhinitis needed for rhinitis LYSINE PO Take 1 capsule by 0 019 mouth 2 times daily Magnesium 200 MG TABS Take 4 tablets by 0 04/10/2019 mouth daily. Multiple Take 1 tablet by 0 05/19/20 17 Vitamins-Minerals (MATURE mouth Without iron BALANCE PO)Indications: Hypertension, Vitamin deficiency ondansetron (ZOFRAN) 4 MG Take 1 tablet (4 mg) 20 tablet 0 03/26/2015 04/10/2015 tabletIndications: Mixed by mouth every 6 incontinence hours as needed for nausea OTHER MEDICAL SUPPLIES ROCÍO Stockings thigh 0 04/13/2016 length oxyCODONE (ROXICODONE) 5 Take 1-2 tablets 30 tablet 0 03/2604/10/2015 MG immediate release (5-10 mg) by mouth tabletIndications: Mixed every 4 hours as incontinence needed for moderate to severe pain Probiotic Product Take 1 capsule by 0 12/09/2020 (PROBIOTIC DAILY PO) mouth as needed PSYLLIUM PO 0 04/13/2016 traMADol (ULTRAM) 50 MG Take 1-2 tablets 40 tablet 0 201404/10/2015 tabletIndications: Mixed (50-100 mg) by mouth incontinence every 6 hours as needed for moderate pain TURMERIC PO Take 1 tablet by 0 019 mouth 2 times daily valACYclovir (VALTREX) Take 1 tablet (1,000 20 tablet 1 03/201501/10/2016 1000 mg tablet mg) by mouth 3 times daily vitamin C (VITAMIN C) 250 Take 250 mg by mouth 0 04/13/2016 MG tablet as needed documented as of this encounter Progress Notes Danny Trujillo - 03/26/2015 2:00 PM CDT [facility] Progress Note [facility] ([facility] [place], [place]) Pre-Op Attempted visit per pt file request, but she was discharged just before I got there. Danny Trujillo Hand Tapper Residential Mortgage Manager Pager [phone] documented in this encounter Nursing Notes Arianne Lemus, MODESTA - 03/26/2015 12:58 PM CDT Patient concerned about red blood when voiding after surgery. Dr. Landeros called and made aware. Dr Landeros stated that she should keep an eye on it and call if worse. Patient updated Latanya Alves RN - 03/26/2015 10:09 AM CDT Report to Massiel Castillo RN. Handoff of care. Mitul oDver RN - 03/26/2015 8:31 AM CDT Pt has Interstim in place and it is currently on. Pt has the control for it on the cart with her in a labeled zip lock bag. Pt has a history of hip surgery and wants us to be very careful when positioning her right leg to make sure it stays in socket. documented in this encounter Miscellaneous Notes Op Note - Carlota Landeros MD - 03/26/2015 2:03 PM CDT PREOPERATIVE DIAGNOSES: Mixed urinary incontinence. POSTOPERATIVE DIAGNOSES: Same PROCEDURE PERFORMED: 1. Mid urethral sling (MiniArc Precise). 2. Cystoscopy. ATTENDING PHYSICIAN: Carlota Landeros MD RESIDENT SURGEON: Eliu Villatoro MD ANESTHESIA: Monitored anesthesia care with 5 mL of 1% lidocaine with epinephrine and 10 mL Xylocainejelly per urethra. ESTIMATED BLOOD LOSS: 10 mL. FINDINGS: No mesh in the bladder SPECIMENS: None HISTORY OF PRESENT ILLNESS: Yamileth Sheikh is a 69 year old year-old woman with a history of mixed urinary incontinence. For her stress urinary incontinence component, differing management options were discussed with the patient and she has elected to proceed with a mid urethral sling. DESCRIPTION OF PROCEDURE: After informed consent was obtained, the patient was identified, marked and taken to the operating room in her usual state of health. After induction with monitored anesthesiacare, she was positioned in modified lithotomy position. Pneumo boots were placed. A timeout was performed to ensure proper patient, procedure and positioning. The patient received 1 gram of Ancef prior to initiation of surgery. She was prepped with Betadine. Xylocaine jelly of 10 mL were inserted into the urethra and a 16-Guatemalan Marcus catheter was placed. An Allis clamp was used to grasp the vaginal mucosa approximately 1 cm from the urethral meatus at the mid urethra. A 25-gauge needle, we injected 10 mL of 1% lidocaine with epinephrine to hydrodissectthe tissues. We then made a 1-cm incision through the vaginal mucosa with a #15 blade. We then dissected this laterally out passed the fornices of the vagina in the pubocervical fascia, out laterally to the pelvic side wall, first on the right-hand side and then on the left hand side. We then placed the MiniArc precise on the trocar and placed this first through the obturator membrane on the left side and then deployed it and then placed it on the right hand side. We then placed a 20-Guatemalan cystoscope through the urethra and into the bladder, noting bilateral ureteral orifices. The floor of the bladder was intact as well as the bladder neck and the lateral edges, no mesh was seen. The urethra was without tape. We then withdrew the cystoscope with a full bladder and pressed on the suprapubic region and did not note any incontinence from the urethral meatus. At this time, we then deployed the right arm of the mesh. A running 2-0 Vicryl was then used to reapproximate the mucosa of the vagina afterirrigation. The patient was then returned to the supine position and transported to recovery in stable condition. ASSESSMENT AND PLAN: Yamileth Sheikh is a 69 year old year-old woman who underwent a midurethral sling for stress urinary incontinence. We will plan to follow up with her in 2 weeks in Urology Clinic. Obtain residual urine and evaluate for obstructive urinary symptoms. Dr. Carlota Landeros was present for entire procedure. Eliu Villatoro MD Patient was seen, evaluated and plan was formulated in conjunction with me and I agree with the above. I was present for the entire procedure. Carlota Landeros MD Brief Op Note - Eliu Villatoro MD - 03/26/2015 10:00 AM CDT [facility] Brief Operative Note Pre-operative diagnosis: Stress Incontinence Post-operative diagnosis Same Procedure: Procedure(s): Midurethral Sling and Cystoscopy Surgeon(s): Surgeon(s) and Role: * Carlota Landeros MD - Primary * Eliu Villatoro MD - Resident - Assisting Estimated blood loss: 5cc Specimens: None Findings: midurethral minarc sling placed Provider Notification - Mitul Dover RN - 03/26/2015 8:28 AM CDT Scabs on upper shoulder/back area from recent skin tag removal. documented in this encounter Plan of Treatment Upcoming Encounters Date Type Specialty Care Team Description 09/10/2022 Office Visit Internal Medicine LogeaMargot man MD [address] [place] [id number] (Wo rk) documented as of this encounter Procedures Procedure Name Priority Date/Time Associated Diagnosis Comme nts CREATION, VAGINAL SLING, 03/26/2015 9:12 AM CDT Stress Incontinence WITH CYSTOSCOPY Special Needs Interstim LAB RESULT - HIM SCAN 03/19/2015 12:00 AM CDT documented in this encounter Results LAB RESULT - HIM SCAN (03/19/2015 12:00 AM CDT) Specimen (Source) Anatomical Location Collection Method / Collectio n Time Received Time / Laterality Volume 03/19/2015 Narrative This result has an attachment that is no t available. Provider Outside NON-BEAKER LAB TESTING documented in this encounter Visit Diagnoses Not on filedocumented in this encounter Administered Medications Inactive Administered Medications - up to 3 most recent administrations Medication Order MAR Action Action Date Dose Rate Site NONFORMULARY Given 03/26/2015 9:38 AM 10 mLs Operative PRN, Starting on Tu CDT Site /Surgical Site 03/26/15 at 0938, Intra-procedure ondansetron (ZOFRAN) injection 4 mg Given 03/26/2015 10:48 AM CDT 4 mg 4 mg, Intravenous, EVERY 30 MIN PRN, nausea, vomiting, Administer over 2-5 Minutes, Starting on Wed03/26/15 at 0949, For 2 doses, MAX total dose = 8 mg, including OR dosing. This is step 1 of the nausea and vomiting protocol. If not resolved in 15 minutes, then go to step 2 (Prochlorperazine if ordered)., PACU/Phase II Scopolamine (TRANSDERM) 1 Given 03/26/2015 9:00 AM CDT 1 patch Behind Right Ear MG/3DAYS patch 1 patch 1 patch, Transdermal, ONCE, On Wed03/26/15 at 0900, For 1 dose, Apply patch to skin, behind ear. Place in Pre-Op. Remove after 24 hours. Each 1.5 mg patch delivers 1 mg of scopolamine., Pre-procedure documented in this encounter Active and Recently Administered Medications Times are shown in CDT. Scheduled Medication Order 03/24/2015 03/25/2015 03/26/2015 ceFAZolin (ANCEF) 1 g vial to attach to NS 100 ml bag for ADULT or 50 ml bag for PEDS (CANCELED) 0915 (Given - Provid er: Eleni Benson APRN CRNA) 1 g, Intravenous, SEE ADMIN INSTRUCTIONS , Starting Wed03/26/15 at 0743, Intra-Op Dose.?Give every 2 hours while patient in surgery, starting 2 hours after pre-op dose.?DO NOT GIVE intra-op dose if CrCl less than 10 mL/min (on dialysis). ?If CrCL less than 50 mL/min, double the time interval between doses., Indications: Surgical Prophylaxis, Pre-procedure Scopolamine (TRANSDERM) 1 MG/3DAYS patch 1 patch (COMPLETED) 0900 (Given - Provider: Deja Mayes RN) 1 patch, Transdermal, ONCE, On Wed at 0900, For 1 dose, Apply patch to skin, behind ear. Place in Pre-Op. Remove after 24 hours. Each 1.5 mg patch delivers 1 mg of scopolamine., Pre-procedure PRN Medication Order 03/24/2015 03/25/2015 03/26/2015 NONFORMULARY (CANCELED) 0938 (Gi gary - Provider: Carlota Landeros MD - Comment: LIDOCAINE HCL 1% AND EPINEPHRINE 1:100,00 INJECTION, EXP: 12/2015, LOT; [id number]-[id number]) PRN, Starting 03/26/15 at 0938, Intra-procedure ondansetron (ZOFRAN) injection 4 mg (CANCELED) 1048 (Given - Provider: Mila Castillo RN) 4 mg, Intravenous, EVERY 30 MIN PRN, juana sea, vomiting, for 2 Minutes, Starting 03/26/15 at 0949, For 2 doses, MAX total dose = 8 mg, including OR dosing. This is step 1 of the nausea and vomiting pro tocol. If not resolved in 15 minutes, th en go to step 2 (Prochlorperazine if ordered)., PACU/Phase II documented in this encounter Care Teams Rubber Tester Relationship Specialty Start Date End Date Balbir Simpson MD PCP - General Internal Medicine 03/26/15 04/12/16 documented as of this encounter
--- OUTSIDE RECORDS SUMMARY | 2022-07-30 19:29 | XMS_ITS | Encounter Summary ---
:1945 Author Organization [facility] Address [address] [place] [address]. [place] [address] Care Team Providers Name Role Phone Balbir Simpson MD Primary Care Provider [phone] Carlota Landeros MD Unavailable Reason for Visit Reason Comments Surgical Followup post operative check up S/P mid urethral sling (MiniArc Precise), cystoscopy Encounter Details Date Type Department Care Team Description 04/10/2015 Office Visit UROLOGY CLINIC AND Carlota Landeros Mix ed incontinence [facility] (Primary Dx) [facility] UROLOG[facility] [address] [place], [place] [address] [address], [address] [place] [address] (Work) [place] [address] [place] [address] Social History Tobacco Use Types Packs/Day Years Used Date Smoking Tobacco: Never Smokeless Tobacco: Never Alcohol Use Standard Drinks/Week Comments Yes 0 (1 standard drink = 0.6 oz pure alcoho l) wine few times/wk Sex Assigned at Date Recorded Female 12/20/2018 4:10 PM CDT documented as of this encounter Last Filed Vital Signs Vital Sign Reading Time Taken Comments Blood Pressure 127/79 04/10/2015 9:56 AM CDT Pulse 86 04/10/2015 9:56 AM CDT Temperature - - Respiratory Rate - - Oxygen Saturation - - Inhaled Oxygen Concentration - - Weight 79.2 kg (174 lb 8 oz) 04/10/2015 9:56 AM CDT Height 167.6 cm (5' 6) 04/10/2015 9:56 AM CDT Body Mass Index 28.17 04/10/2015 9:56 AM CDT documented in this encounter Progress Notes Carlota Landeros MD - 04/10/2015 9:56 AM CDT Reason for Visit: 2 week [...] urge inontinence. She is very pleased. She also underwent InterStim placement on 05/19/2011 [...] Pdet 13 cm H2O; [facility]ed with Valsalva voiding with [...] ml. 6. Left hemipelvis InterStim lead on certified energy manager imaging. She was still having problems with stress incontinence but wanted to continue with the PT for this. RU today is 0 cc on bladder scan by nursing On exam: Residual mild urethral mobility Vaginal incision with suture No evidence of mesh extrusion or erosion A/P 69 year old female with mixed incontinence s/p midurethral sling doing well -f/u in 4 weeks. -continue restrictions of lifting and sexual activity Thank you for allowing me to participate in the care of .Yamileth Sheikh and I will keep you updated on her progress. Carlota Landeros MD documented in this encounter Nursing Notes Nohemy Carpenter LPN - 04/10/2015 10:02 AM CDT Chief Complaint Patient presents with ??? Surgical Followup post operative check up S/P mid urethral sling (MiniArc Precise), cystoscopy Blood pressure 127/79, pulse 86, height 1.676 m (5' 6), weight 79.153 kg (174 lb 8 oz), not currently . Body mass index is 28.18 kg/(m^2). Patient Active Problem List Diagnosis ??? Elevated Blood Pressure Reading without Diagnosis of Hypertension ??? CARDIOVASCULAR SCREENING; LDL GOAL LESS THAN 130 ??? Urinary retention ??? Urgency of urination ??? Mixed incontinence urge and stress (male)(female) ??? Tinnitus of both ears ??? Hemorrhoids ??? Anal fissure ??? Hypertension ??? Osteopenia ??? Atrophic vaginitis ??? Muscle weakness ??? Mixed incontinence ??? Lump or mass in breast ??? Disorder of bone and cartilage, unspecified Current Outpatient Prescriptions Medication Sig Dispense Refill [...] tablet by mouth 3 times daily ??? PSYLLIUM PO ??? fluticasone (FLONASE) 50 MCG/ACT nasal spray [place] 2 sprays into both nostrils daily 1 Package 6 ??? ipratropium (ATROVENT) 0.06 % nasal spray [place] 2 sprays into both nostrils 4 times daily as needed for rhinitis 1 Box 6 ??? hydrocortisone-pramoxine (PROCTOFOAM-HC) rectal foam Place 1 applicator rectally 2 times daily 15 g 6 ??? estradiol (ESTRING) [address] 1 each vaginally every 3 months 1 each 4 ??? estradiol (ESTRACE VAGINAL) 0.1 MG/GM vaginal cream Place 2 g vaginally three times a week Afterusing daily for 2 weeks. 42.5 g 12 ??? valACYclovir (VALTREX) 1000 mg tablet Take 1 tablet (1,000 mg) by mouth 3 times daily (Patient taking differently: Take 1,000 mg by mouth 3 times daily as needed ) 20 tablet 1 ??? Multiple Vitamins-Minerals (MATURE BALANCE PO) Take 1 tablet by mouth Without iron ??? B Complex Vitamins (VITAMIN-B COMPLEX PO) Take 1 tablet by mouth daily ??? vitamin C (VITAMIN C) 250 MG tablet Take 250 mg by mouth as needed ??? LYSINE PO Take 1 capsule by mouth 2 times daily ??? CALCIUM CITRATE-VITAMIN D PO Take 2 tablets by mouth daily Calcium-500 mg Vitamin d-150 iu ??? Glucosamine-Chondroitin (GLUCOSAMINE CHONDR COMPLEX PO) Take 1 tablet by mouth. With MSN ??? Magnesium 200 MG TABS Take 4 tablets by mouth daily. ??? fish oil-omega-3 fatty acids (OMEGA 3) 1000 MG capsule Take 2 capsules by mouth 2 times daily. ??? OTHER MEDICAL SUPPLIES ROCÍO stockings knee length USE DIRECTED . ??? OTHER MEDICAL SUPPLIES ROCÍO Stockings thigh length ??? cholecalciferol (VITAMIN D3) 1000 UNIT tablet Take 2 tablets by mouth daily. ??? azelastine (ASTELIN) 137 MCG/SPRAY nasal spray [place] 1-2 sprays into both nostrils 2 times daily(Patient taking differently: [place] 1-2 sprays into both nostrils daily as needed ) 90 mL 1 Allergies Allergen Reactions ??? Propofol Other (See Comments) and Nausea and Vomiting Extreme vertigo and nausea/vomiting ??? Codeine Nausea and Vomiting ??? Morphine Nausea and Vomiting ??? Latex Rash ??? Nickel Rash ??? Tape [Adhesive Tape] Rash Including steri-strips History Substance Use Topics ??? Smoking status: Never Smoker ??? Smokeless tobacco: Never Used ??? Alcohol Use: Yes Comment: wine few times/wk Nohemy Carpenter LPN 04/10/2015 10:02 AM documented in this encounter Plan of Treatment Upcoming Encounters Date Type Specialty Care Team Description 09/10/2022 Office Visit Internal Medicine Margot Branham MD [address] [address] (Wo rk) documented as of this encounter Visit Diagnoses Diagnosis Mixed incontinence - Primary Mixed incontinence urge and stress (male )(female) documented in this encounter Care Teams Grounds Manager Relationship Specialty Start Date End Date Balbir Simpson MD PCP - General Internal Medicine 03/26/15 04/12/16 Carlota Landeros MD MD Urology 04/10/[address] [place] [address] documented as of this encounter
--- OUTSIDE RECORDS SUMMARY | 2022-07-30 19:29 | XMS_ITS | Encounter Summary ---
:1945 Author Organization [facility] Address [address] [place] [address]. [place] [address] Care Team Providers Name Role Phone Balbir Simpson MD Primary Care Provider Carlota Landeros MD Unavailable Balbir Simpson MD Unavailable [phone] Encounter Details Date Type Department Care Team Description 07/03/2015 Telephone [facility] Carlota Landeros MD [place] [id number] [place], [place] [address] [place] [id number] [facility] [place] [address] [place] [phone] Social History Tobacco Use Types Packs/Day Years Used Date Smoking Tobacco: Never Smokeless Tobacco: Never Alcohol Use Standard Drinks/Week Comments Yes 0 (1 standard drink = 0.6 oz pure alcoho l) wine few times/wk Sex Assigned at Date Recorded Female 12/20/2018 4:10 PM CDT documented as of this encounter Miscellaneous Notes Telephone Encounter - Michelle Montana RN - 07/03/2015 3:01 PM CDT Left message Michelle Montana RN Educational Administrator Urology Telephone Encounter - Giselle Dorman RN - 07/03/2015 1:49 PM CDT Returned call to patient. Patient left voicemail with questions regarding symptoms after surgery in March. Patient stated, I had surgery back in March, but over the last few weeks when I wake up overnight with urgency and I end up leaking on the way to the bathroom. I wanted Dr. Landeros to know and I am w ondering if there is anything more she can do or tighten up. Patient has been seen recently at the [facility]. Patient instructed that Dr. Landeros is out of the office until Wednesday, but was informed that the message would be sent to her. Will update patient after recommendations made by MD. Giselle Dorman General Surgery - Urology RN documented in this encounter Plan of Treatment Upcoming Encounters Date Type Specialty Care Team Description 09/10/2022 Office Visit Internal Medicine Margot Branham MD [address] [address] (Wo rk) documented as of this encounter Visit Diagnoses Not on filedocumented in this encounter Care Teams Treatment Counselor Relationship Specialty Start Date End Date Balbir Simpson, PCP - General Internal Medicine 03/26/15 04/12/16 Carlota Landeros MD MD Urology 04/10/[address] [place] [address] Balbir Simpson, Referring Physician Internal Medicine 04/0303/29/16 documented as of this encounter
--- OUTSIDE RECORDS SUMMARY | 2022-07-30 19:29 | XMS_ITS | Encounter Summary ---
:1945 Author Organization [facility] Address [address] [place] [address]. [place] [address] Care Team Providers Name Role Phone Balbir Simpson MD Primary Care Provider Carlota Landeros MD Unavailable Luz Maria Kelly MD Unavailable Lisseth Vang MD Unavailable Encounter Details Date Type Department Care Team Description 04/02/2016 Orders Only [facility] Anh Costa iathea hypertension [facility] with goal blood 909 [facility] pressure less than 5th Floor 130/80 (Primary Dx) [place] [address] Social History Tobacco Use Types [...] Internal Medicine Margot Branham MD [address] [address] (Wo rk) documented as of this encounter Visit Diagnoses Diagnosis Essential hypertension with goal blood p ressure less than 130/80 - Primary documented in this encounter Care Teams Tool Or Die Drawing Checker Relationship Specialty Start Date End Date Balbir Simpson MD PCP - General Internal Medicine 03/26/15 04/12/16 Carlota Landeros MD MD Urology 04/10/[address] [place] [address] Luz Maria Kelly MD MD Internal Medicine 03/27/16 02/22/17 Lisseth Vang MD PCP Family Practice 03/30/16 11/14/[address] [place] [address] documented as of this encounter
--- OUTSIDE RECORDS SUMMARY | 2022-07-30 19:29 | XMS_ITS | Encounter Summary ---
:1945 Author Organization [facility] Address [address] [place] [address]. [place] [address] Care Team Providers Name Role Phone Mhereen Johnston MD PhD Primary Care Provider [phone] Encounter Details Date Type Department Care Team Description 02/18/2015 Orders Only UROLOGY CLINIC AND Carlota Landeros Fem janina stress [facility] incontin[facility] (Primary [facility] UROLOGIC [address] Dx ) [address] [place], [place] [address] [address], [address] [facility] [address] [place] [address] Social History Tobacco Use Types [...] Internal Medicine Margot Branham MD 909 [facility] [address] [place] [address] (Wo rk) Scheduled Orders Name Type Priority Associated Diagnoses Order S chedule Bridget-Operative Procedures Routine Female stress Ordered: Worksheet (Urology incontinence General) documented as of this encounter Visit Diagnoses Diagnosis Female stress incontinence - Primary documented in this encounter Care Teams Mathematics Academic Chair Relationship Specialty Start Date End Date Mehreen Johnston MD PhD PCP - General Family Practice 11/27/13 03/25/15 documented as of this encounter
--- OUTSIDE RECORDS SUMMARY | 2022-07-30 19:29 | XMS_ITS | Encounter Summary ---
:1945 Author Organization [facility] Address [address] [place] [address]. [place] [address] Care Team Providers Name Role Phone Lisseth Vang MD Primary Care Provider Carlota Landeros MD Unavailable Luz Maria Kelly MD Unavailable Lisseth Vang MD Unavailable Reason for Visit Reason Comments RECHECK symptom check, patient state s no symptoms since last year Encounter Details Date Type Department Care Team Description 05/13/2016 [facility] Visit [facility] and Carlota Landeros M [facility] incontin[facility] (Primary Dx) [facility] [place] [address] [facility] [address] [place] [phone] Social History Tobacco Use Types Packs/Day Years Used Date Smoking Tobacco: Never Smokeless Tobacco: Never Alcohol Use Standard Drinks/Week Comments Yes 0 (1 standard drink = 0.6 oz pure alcoho l) wine few times/wk Sex Assigned at Date Recorded Female 12/20/2018 4:10 PM CDT documented as of this encounter Last Filed Vital Signs Vital Sign Reading Time Taken Comments Blood Pressure 124/77 05/13/2016 9:18 AM CDT Pulse 74 05/13/2016 9:18 AM CDT Temperature - - Respiratory Rate - - Oxygen Saturation - - Inhaled Oxygen Concentration - - Weight 79.8 kg (176 lb) 05/13/2016 9:18 AM CDT Height 169.5 cm (5' 6.75) 05/13/2016 9:18 AM CDT Body Mass Index 27.77 05/13/2016 9:18 AM CDT documented in this encounter Progress Notes Carlota Landeros MD - 05/13/2016 9:35 AM CDT Reason for Visit: F/u on urinary symptoms. Clinical Data: Ms. Yamileth Sheikh is a 70 year old year old female with a history of midurethralsling on 03/26/16. She states that she is doing well. No stress incontinence, no urinary urgency no urge inontinence. She is very pleased.?? She is having no trouble voiding. She also underwent InterStim placement on 05/19/2011 and she is very happy. She is not having any incontinence. The patient had urodynamics completed in 02/2011 prior to InterStim placement, which demonstrated normal bladder capacity, good bladder compliance, a large stress leak at Pabd 153 cm H2O at a volume of319 ml and Valsalva voiding with a low maximum voiding Pabd 20 cm H2O. There was no obvious detrusorcontraction and PVR was 150 ml. Repeat UDS after the interstim implant (08/2012) 1. Normal bladder capacity, 629 ml. 2. Good bladder compliance. 3. Maximum voiding Pdet 13 cm H2O; once moved to portable commode patient voided with Valsalva voiding with maximum [...] ml. 6. Left hemipelvis InterStim lead on forklift wheel loader imaging. RU today is 0 cc on bladder scan by nursing UA is normal. A/P 70 year old female with mixed incontinence s/p midurethral sling and interstsim doing very well.Her interstim has been has been implanted for 5 years but still working. -f/u prn when she feels symptoms return and we can check her interstim battery. Thank you for allowing me to participate in the care of Ms.Edna Ramona Mahoneylle and I will keep you updated on her progress. Carlota Landeros MD 15 min spent with patient, >50% in discussion and coordination of care. documented in this encounter Nursing Notes Nohemy Carpenter LPN - 05/13/2016 9:58 AM CDT Interstim battery checked today with [email or web address] Provider Software Engineering Analyst which showed a battery longevity of 5-15 months. Nohemy Carpenter LPN Nohemy Carpenter LPN - 05/13/2016 9:19 AM CDT Chief Complaint Patient presents with ??? RECHECK symptom check, patient states no symptoms since last year Blood pressure 124/77, pulse 74, height 1.695 m (5' 6.75), weight 79.833 kg (176 lb), not currentlybreastfeeding. Body mass index is 27.79 kg/(m^2). Patient Active Problem List Diagnosis ??? [...] and cartilage ??? ACP (advance care planning) Allergies Allergen Reactions ??? Propofol Other (See Comments) and Nausea and Vomiting Extreme vertigo and nausea/vomiting ??? Codeine Nausea and Vomiting ??? Morphine Nausea and Vomiting ??? Latex Rash ??? Nickel Rash ??? Tape [Adhesive Tape] Rash Including steri-strips Current Outpatient Prescriptions Medication Sig Dispense Refill ??? fluticasone (FLONASE) 50 MCG/ACT nasal spray ??? FLUZONE HIGH-DOSE 0.5 ML injection ??? estradiol (ESTRACE VAGINAL) 0.1 MG/GM vaginal cream Place 1 g vaginally three times a week Applya small amt externally to vulva three times weekly. 30 g 12 ??? Perindopril Erbumine 2 MG TABS Take 1 tablet by mouth daily 90 tablet 0 ??? azelastine (ASTELIN) 0.1 % nasal spray [place] 1-2 sprays into both nostrils daily as needed 90 mL1 ??? ipratropium (ATROVENT) 0.06 % nasal spray [place] 2 sprays into both nostrils 4 times [...] Comment: wine few times/wk Nohemy Carpenter LPN 05/13/2016 9:19 AM documented in this encounter Plan of Treatment Upcoming Encounters Date Type Specialty Care Team Description 09/10/2022 Office Visit Internal Medicine Margot Branham MD [address] [place] [id number] (Wo rk) documented as of this encounter Procedures Procedure Name Priority Date/Time Associated Diagnosis Comme nts HC MEASURE POST-VOID Routine 05/13/2016 9:42 AM CDT Mixed inco ntinence RESIDUAL URINE/BLADDER CAPACITY, US NON-IMAGING documented in this encounter Visit Diagnoses Diagnosis Mixed incontinence - Primary Mixed incontinence urge and stress (male )(female) documented in this encounter Care Teams Arranger Assembler Relationship Specialty Start Date End Date Lisseth Vang MD PCP - General 04/13/16 11/14/[address] [place], [place] [id number] Carlota Landeros MD MD Urology 04/10/[address] [place], [place] [address] Luz Maria Kelly MD MD Internal Medicine 03/27/16 02/22/17 Lisseth Vang MD PCP Family Practice 03/30/16 11/14/[address] [place], [place] [id number] documented as of this encounter
--- OUTSIDE RECORDS SUMMARY | 2022-07-30 19:29 | XMS_ITS | Encounter Summary ---
:1945 Author Organization [place] Address [address] [place] [address]. [place] [address] Care Team Providers Name Role Phone Balbir Simpson MD Primary Care Provider [phone] Carlota Acuña MD Unavailable Balbir Simpson MD Unavailable [phone] Reason for Visit Reason Comments Establish Care Pt states she is here to est [facility] care. Pt states she would like to discuss varicose veins and w ould like to have a wart frozen off. Encounter Details Date Type Department Care Team Description 06/05/2015 Office Visit [facility] Primary Balbir Simpson (Primary Dx); Care Center MD Juvencio Seborrheic keratoses; 3rd Floor, Clinic [address] [place] [address] [facility] (Work) [place], [place] [phone] [address] (Fax) [phone] Social History Tobacco Use Types Packs/Day Years Used Date Smoking Tobacco: Never Smokeless Tobacco: Never Alcohol Use Standard Drinks/Week Comments Yes 0 (1 standard drink = 0.6 oz pure alcoho l) wine few times/wk Sex Assigned at Date Recorded Female 12/20/2018 4:10 PM CDT documented as of this encounter Last Filed Vital Signs Vital Sign Reading Time Taken Comments Blood Pressure 133/80 06/05/2015 7:52 AM CDT Pulse 72 06/05/2015 7:52 AM CDT Temperature - - Respiratory Rate 14 06/05/2015 7:52 AM CDT Oxygen Saturation - - Inhaled Oxygen Concentration - - Weight 81.2 kg (179 lb 1.6 oz) 06/05/2015 7:52 AM CDT Height 168.9 cm (5' 6.5) 06/05/2015 7:52 AM CDT Body Mass Index 28.47 06/05/2015 7:52 AM CDT documented in this encounter Patient Instructions Patient InstructionsStLo granados - 06/05/2015 7:53 AM CDT Primary Care Center Medication Refill Request Information: * Please contact your pharmacy regarding ANY request for medication refills. [facility] Prescription Fax = [phone] * Please allow 3 business days for [...] the results and signed off on them. documented in this encounter Progress Notes Balbir Simpson MD - 06/05/2015 9:24 AM CDT HPI HISTORY OF PRESENT ILLNESS: This is a 69-year-old woman who presents today to establish primary care. She has been in good health. She has had some problems with arthritis in her hands and in her hip. She has also had some issues with venous varicosities that she was wondering about. She also had a number of skin lesions which she is concerned about and a history of labile hypertension. She has been followed through the [facility]. At one point she was treated with beta blockers and was recently recommended to go on an KAILYN inhibitor for some borderline blood pressure. She is concerned about the side effects and did not do that. She is taking a number of supplements. She is exercising by walking about a half an hour every day. She is tolerating this well without chest pain or symptoms. She does occasionally get some discomfort in superficial venous varicosities in the lower extremities. Shehas not been doing anything to treat these and was questioning potential interventions. She has noted some warts on her fingers and a few small seborrheic keratoses on her leg which have bothered her. She otherwise has been doing well. Had a recent bladder sling procedure done and did this well. We reviewed her lipids. She had an 8.1% ASCVD risk. We discussed statin therapy. She is not motivated to take medication for this and wants to intensify her exercise, diet and weight loss and have this reassessed next year. Past and Family hx reviewed and updated Past Medical History Diagnosis Date ??? Fibroid uterus ??? Deviated nasal septum Dr Baer ENT ??? Osteoarthritis right hip ??? Labile hypertension no medication ??? Urinary problem 2010 has a bladder implant, interstim ??? Mixed incontinence ??? Hyperlipidemia ASCVD risk 8.1%, declines statin Past Surgical History Procedure Laterality Date ??? [...] Surgeon: Carlota Acuña MD; Location: [facility] OR Family History Problem Relation Age of Onset ??? Cancer - colorectal Mother colon polyps, age 93 ??? Cardiovascular Father CHF age 79, hx of PE and HTN ??? Hypertension Father ??? Cancer Maternal Grandmother 84 of pancreatic cancer ??? Myocardial Infarction Maternal Grandfather 82 of [place] ??? Cardiovascular Paternal Grandmother age 65 of heart problems ??? Pneumonia Paternal Grandfather age 70 after flu ??? Cancer Sister uterine cancer ??? Parkinsonism Sister History Social History ??? Marital Status: Single Spouse Name: N/A Number of Children: N/A ??? 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 Smoking status: Never Smoker ??? Smokeless tobacco: Never Used ??? Alcohol Use: Yes Comment: wine few times/wk ??? Drug Use: No ??? Sexual Activity: Not Currently Other Topics Concern ??? Caffeine Concern Yes 1 c/day ??? Sleep Concern Yes gets hot at night ??? Exercise Yes 30 min walking daily - weights+ ??? Seat Belt Yes Social History Narrative 1 son - - still working at [employer] - qatari as a second language - lives in a house - retiring - March 2015 ROS: Constitutional: no fevers, chills, night sweats, fatigue, unintentional weight change Eyes: no vision change, diplopia, red eyes Ears, Nose, Mouth, Throat: no hearing change, sinus pain, throat pain Cardiovascular: no chest pain, palpitations, pain with walking, Respiratory: no cough, shortness of breath, wheezing GI: no nausea, vomiting, diarrhea, constipation, abdominal pain, heartburn : no change in urine, incontinence, sexual dysfunction Musculoskeletal: no joint pain, muscle pain, swelling Integumentary: no concerning lesions or moles, rash Neuro: no loss of strength or sensation, numbness or tingling, dizziness, headache Endo: no polydipsia, no temperature intolerance Heme/Lymph: no concerning bumps, no bleeding problems Allergy: no environmental allergies Psych: no depression, no anxiety, no sleep problems Exam: BP 133/80 mmHg Pulse 72 Resp 14 Ht 1.689 m (5' 6.5) Wt 81.239 kg (179 lb 1.6 oz) BMI 28.48 kg/m2 ? No 179 lbs 1.6 oz The patient is alert, oriented with a clear sensorium. Skin shows no lesions or rashes and good turgor. Head is normocephalic and atraumatic. Neck shows no nodes, thyromegaly. Lungs are clear. Heart shows normal S1 and S2 without murmur or gallop. Extremities show no edema, superficial venous varicosities on legs, 1 small seborrheic keratosis behind rt knee and 2 behind lt knee treated with liquid nitrogen, wrt on rt 4th finger and lt 3rd fingeralso treated with liquid nitrogen. ASSESSMENT: 1. Superficial venous varicosities, slightly symptomatic. 2. Labile hypertension. 3. Hyperlipidemia with 8.1% ASCVD risk. 4. Warts. 5. Seborrheic keratoses status post liquid nitrogen. PLAN: Discussed nonpharmacologic blood pressure control measures and also discussed nonpharmacologicmeasures for her varicose veins including salt restriction, leg elevation and support stockings. Sheis going to pursue these and continue her efforts to control her cholesterol without medication. We will plan to reassess her fasting lipids as well as her hs-CRP which has been consistently elevated in the past in another 4-6 months. Have her follow up sooner or immediately if any increased symptoms or problems before that time. Encouraged regarding her exercise and activity habits. Balbir Simpson MD General Internal Medicine [facility] [phone] documented in this encounter Nursing Lo Cooper - 06/05/2015 7:51 AM CDT Chief Complaint Patient presents with ??? Establish Care Pt states she is here to establish care. Pt states she would like to discuss varicose veins and would like to have a wart frozen off. Lo Castro RMA documented in this encounter Plan of Treatment Upcoming Encounters Date Type Specialty Care Team Description 09/10/2022 Office Visit Internal Medicine Margot Branham MD [address] [place] [id number] (Wo rk) documented as of this encounter Procedures Procedure Name Priority Date/Time Associated Diagnosis Comme nts HC DESTRUCT BENIGN Routine 06/05/2015 8:47 AM CDT Warts LESION, UP TO 14 Seborrheic keratoses documented in this encounter Results CRP inflammation (01/10/2016 8:46 AM CDT) Analysis Performed At Patho logist Time Signature CRP Inflammation 3.2 0.0 - 8.0 [facility] mg/L [facility] [place] Specimen Anatomical Collection Method Collection Time Receive d Time (Source) Location / / Volume Laterality Blood specimen 01/10/2016 8:46 AM 016 8:47 (specimen) CDT AM CDT Balbir Simpson MD LAB - BLOOD ORDERABLES Performing Organization Address City/[facility]/ZIP Code Phon e Number [address] [address] [facility] (ABNORMAL) Lipid Profile (01/10/2016 8:46 AM CDT) P athologist Signature Cholesterol 223 (H) <200 mg/dL [facility] Comment: Desirable: <200 mg/dl Triglycerides 137 <150 mg/dL [facility] HDL Cholesterol 78 >49 mg/dL [facility] LDL Cholesterol Calculated 118 (H) <100 mg/dL UN [facility] Comment: Above desirable: ??100-129 mg/dl Borderline High: ??130-159 mg/dL High: ? 160-189 mg/dL Very high: ? >189 mg/dl Non HDL Cholesterol 146 (H) <130 mg/dL [facility] Comment: Above Desirable: ??130-159 mg/dl Borderline high: ??160-189 mg/dl High: ? 190-219 mg/dl Very high: ? >219 mg/dl Specimen Anatomical Collection Method Collection Time Receive d Time (Source) Location / / Volume Laterality Blood specimen 01/10/2016 8:46 AM 016 8:47 (specimen) CDT AM CDT Balbir Simpson MD LAB - BLOOD ORDERABLES Performing Organization Address City/State/ZIP Code Phon e Number [address] [address] [facility] (ABNORMAL) Basic metabolic panel (01/10/2016 8:46 AM CDT) Analysis Performed At Patho logist Time Signature Sodium 141 133 - 144 [facility] mmol/L [facility] Potassium 4.3 3.4 - 5.3 [facility] mmol/L [facility] Chloride 107 94 - 109 [facility] mmol/L [facility] Carbon Dioxide 24 20 - 32 [facility] mmol/L [facility] Anion Gap 9 3 - 14 [facility] mmol/L [facility] Glucose 107 (H) 70 - 99 [facility] mg/dL [facility] Urea Nitrogen 15 7 - 30 [facility] mg/dL [facility] Creatinine 0.73 0.52 - [facility] 1.04 mg/dL [facility] GFR Estimate 79 >60 [facility] mL/min/1.7 [place] m2 [facility] Comment: Non GFR Calc GFR Estimate If >90 >60 mL/min/1.7m2 [facility] Black GFR Calc [facility] Calcium 8.9 8.5 - 10.1 mg/dL [facility] Specimen Anatomical Collection Method Collection Time Receive d Time (Source) Location / / Volume Laterality Blood specimen 01/10/2016 8:46 AM 016 8:47 (specimen) CDT AM CDT Balbir Simpson MD LAB - BLOOD ORDERABLES Performing Organization Address City/State/ZIP Code Phon e Number [address] [address] [facility] documented in this encounter Visit Diagnoses Diagnosis Warts - Primary Viral warts, unspecified Seborrheic keratoses Hyperlipidemia Other and unspecified hyperlipidemia documented in this encounter Care Teams Machine Builder Relationship Specialty Start Date End Date Balbir Simpson, PCP - General Internal Medicine 03/26/15 04/12/16 Carlota Acuña MD MD Urology 04/10/[address] [place] [address] Balbir Simpson, Referring Physician Internal Medicine 04/0303/29/16 documented as of this encounter
--- OUTSIDE RECORDS SUMMARY | 2022-07-30 19:29 | XMS_ITS | Encounter Summary ---
:1945 Author Organization [place] Address [address] [place] [address]. [place] [address] Care Team Providers Name Role Phone Balbir Simpson MD Primary Care Provider [phone] Carlota Landeros MD Unavailable Balbir Simpson MD Unavailable Reason for Visit Reason Comments RECHECK DE LEON clearance Encounter Details Date Type Department Care Team Description 09/05/2015 Office Visit Ear, Nose and Throat Vanessa Mcgregor MD Tinnitus, bilateral Clinic [address] [facility] (Primary Dx) 8th Floor, Clinic 8A [facility] [address] [place], [place] [address] [place] [address] [facility] [address] (Work) [place] [address] Social History Tobacco Use Types Packs/Day Years Used Date Smoking Tobacco: Never Smokeless Tobacco: Never Tobacco Cessation: Counseling Given: No Alcohol Use Standard Drinks/Week Comments Yes 0 (1 standard drink = 0.6 oz pure alcoho l) wine few times/wk Sex Assigned at Date Recorded Female 12/20/2018 4:10 PM CDT documented as of this encounter Patient Instructions Patient InstructionsLucero Vázquez RN - 09/05/2015 12:07 PM CST Please call our clinic for any questions,concerns,or worsening symptoms. Clinic #[phone] Option 3 for the triage nurse. R PRESS OPERATOR documented in this encounter Progress Notes Vanessa Mcgregor MD - 09/05/2015 1:12 PM CST Yamileth Sheikh is seen for further discussion regarding her tinnitus. She was last seen in 2011 for this. She is wondering if there are any supplements she can take as she's been looking at niacin.She says that she was told she was a hearing aid candidate but she can't afford them. She also says that when it is quiet, she can hear childrens' voices with no difficulty and airplane noise overhead. Assessment and plan: We had another discussion regarding her tinnitus. We went over that it was madeby her brain not her ears so there is no recommended medicine or surgery for tinnitus. All the therapies for tinnitus are aimed at making the tinnitus less bothersome but not at making it go away or bequieter. We discussed cognitive behavioral therapy as well as mindfulness therapy. She would like tolook into mindfulness therapy and I recommended she look at the [facility] website. She had her questions answered. Please note that the entire 10 minutes of this visit were spent in consultation. R PRESS OPERATOR documented in this encounter Nursing Notes Yesica Orlando CMA - 09/05/2015 11:48 AM CST Chief Complaint Patient presents with ??? RECHECK DE LEON clearance Yesica Orlando CMA R PRESS OPERATOR documented in this encounter Plan of Treatment Upcoming Encounters Date Type Specialty Care Team Description 09/10/2022 Office Visit Internal Medicine Margot Branham MD [address] [address] (Wo rk) documented as of this encounter Visit Diagnoses Diagnosis Tinnitus, bilateral - Primary Unspecified tinnitus documented in this encounter Care Teams Flight Operations Specialist Relationship Specialty Start Date End Date Balbir Simpson, JAMAR - General Internal Medicine 03/26/15 04/12/16 Carlota Landeros MD MD Urology 04/10/[address] [place] [address] Balbir Simpson, Referring Physician Internal Medicine 04/0303/29/16 documented as of this encounter
--- OUTSIDE RECORDS SUMMARY | 2022-07-30 19:29 | XMS_ITS | Encounter Summary ---
:1945 Author Organization [place] Address [address] [place] [address]. [place] [address] Care Team Providers Name Role Phone Balbir Simpson MD Primary Care Provider [phone] Carlota Landeros MD Unavailable Balbir Simpson MD Unavailable [phone] Encounter Details Date Type Department Care Team Description 01/10/2016 [facility] Only [facility] Lab Hyperlipidemia [address] [place] [address] [phone] Social History Tobacco Use Types [...] Office Visit Internal Medicine LogMargot sadler MD [address] [place] [phone] (Wo rk) documented as of this encounter Procedures Procedure Name Priority Date/Time Associated Diagnosis Comme nts LIPID PROFILE Routine 01/10/2016 8:46 Hyperlipidemia Results f or this AM CDT procedure are i n the results section. CRP INFLAMMATION Routine 01/10/2016 8:46 Hyperlipidemia Result s for this AM CDT procedure are i n the results section. BASIC METABOLIC PANEL Routine 01/10/2016 8:46 Hyperlipidemia R esults for this AM CDT procedure are i n the results section. documented in this encounter Results CRP inflammation (01/10/2016 8:46 AM CDT) Analysis Performed At Patho logist Time Signature CRP Inflammation 3.2 0.0 - 8.0 [facility] mg/L [facility] Specimen Anatomical Collection Method Collection Time Receive d Time (Source) Location / / Volume Laterality Blood specimen 01/10/2016 8:46 AM 016 8:47 (specimen) CDT AM CDT Balbir Simpson MD LAB - BLOOD ORDERABLES Performing Organization Address City/[facility] [place] [address] [facility] (ABNORMAL) Lipid Profile (01/10/2016 8:46 AM CDT) P athologist Signature Cholesterol 223 (H) <200 mg/dL [facility] Comment: Desirable: <200 mg/dl Triglycerides 137 <150 mg/dL [facility] HDL Cholesterol 78 >49 mg/dL [facility] LDL Cholesterol Calculated 118 (H) <100 mg/dL [facility] Comment: Above desirable: ??100-129 mg/dl Borderline High: ??130-159 mg/dL High: ? 160-189 mg/dL Very high: ? >189 mg/dl Non HDL Cholesterol 146 (H) <130 mg/dL [facility] Comment: Above Desirable: ??130-159 mg/dl Borderline high: ??160-189 mg/dl High: ? 190-219 mg/dl Very high: ? >219 mg/dl Specimen Anatomical Collection Method Collection Time Receive d Time (Source) Location / / Volume Laterality Blood specimen 01/10/2016 8:46 AM 016 8:47 (specimen) CDT AM CDT Balbir Simpson MD LAB - BLOOD ORDERABLES Performing Organization Address City/[facility] [place] [address] [facility] (ABNORMAL) Basic metabolic panel (01/10/2016 8:46 AM CDT) Analysis Performed At Patho logist Time Signature Sodium 141 133 - 144 [facility] mmol/L [facility] Potassium 4.3 3.4 - 5.3 [facility] mmol/L [facility] Chloride 107 94 - 109 [facility] mmol/L [facility] Carbon Dioxide 24 20 - 32 [facility] mmol/L [facility] Anion Gap 9 3 - 14 [facility] mmol/L [facility] Glucose 107 (H) 70 - 99 [facility] mg/dL [facility] Urea Nitrogen 15 7 - 30 [facility] mg/dL [facility] Creatinine 0.73 0.52 - [facility] 1.04 mg/dL [facility] GFR Estimate 79 >60 [facility] mL/min/1.7 [place] m2 [facility] Comment: Non GFR Calc GFR Estimate If >90 >60 mL/min/1.7m2 [facility] Black GFR Calc [facility] Calcium 8.9 8.5 - 10.1 mg/dL [facility] Specimen Anatomical Collection Method Collection Time Receive d Time (Source) Location / / Volume Laterality Blood specimen 01/10/2016 8:46 AM 016 8:47 (specimen) CDT AM CDT Balbir Simpson MD LAB - BLOOD ORDERABLES Performing Organization Address City/State/ZIP Code Phon e Number [address] [address] [facility] documented in this encounter Visit Diagnoses Diagnosis Hyperlipidemia Other and unspecified hyperlipidemia documented in this encounter Care Teams Hospital Wellness Coordinator Relationship Specialty Start Date End Date Balbir Simpson, PCP - General Internal Medicine 03/26/15 04/12/16 Carlota Landeros MD MD Urology 04/10/[address] [place] [address] Balbir Simpson, Referring Physician Internal Medicine 04/0303/29/16 documented as of this encounter
--- OUTSIDE RECORDS SUMMARY | 2022-07-30 19:29 | XMS_ITS | Encounter Summary ---
:1945 Author Organization [facility] Address [address] [place] [address]. [place] [address] Care Team Providers Name Role Phone Balbir Simpson MD Primary Care Provider Carlota Landeros MD Unavailable Reason for Visit Reason Comments Other Encounter Details Date Type Department Care Team Description 04/15/2015 Documentation Only [facility] Abel Hui [address] [facility] [address] [place] [address] Social History Tobacco Use Types Packs/Day Years [...] Visit Internal Medicine Margot Branham MD [address] [id number] (Wo rk) documented as of this encounter Visit Diagnoses Not on filedocumented in this encounter Care Teams Hand Cooper Helper Relationship Specialty Start Date End Date Balbir Simpson MD PCP - General Internal Medicine 03/26/15 04/12/16 Carlota Landeros MD MD Urology 04/10/[address] [place], [place] [phone] documented as of this encounter
--- OUTSIDE RECORDS SUMMARY | 2022-07-30 19:29 | XMS_ITS | Encounter Summary ---
:1945 Author Organization [place] Address [address] [place] [address]. [place] [address] Care Team Providers Name Role Phone Balbir Simpson MD Primary Care Provider [phone] Reason for Visit Reason Onset Date Comments Pre Visit Planning - Done 04/01/2015 Encounter Details Date Type Department Care Team Description 04/01/2015 Telephone UROLOGY CLINIC AND Carlota Landeros, Pre Visit Planning - [facility] MD Done [facility] [address] [facility] [address]LO[address], [address] [place] [address] [place] [address] Social History Tobacco Use Types Packs/Day Years Used Date Smoking Tobacco: Never Smokeless Tobacco: Never Alcohol Use Standard Drinks/Week Comments Yes 0 (1 standard drink = 0.6 oz pure alcoho l) wine few times/wk Sex Assigned at Date Recorded Female 12/20/2018 4:10 PM CDT documented as of this encounter Miscellaneous Notes Telephone Encounter - Nohemy Carpenter LPN - 04/01/2015 11:01 AM CDT Patient coming in for post operative check up S/P mid urethral sling (MiniArc Precise), cystoscopy .Patient chart reviewed, no need for call, all records available and ready for appointment. documented in this encounter Plan of Treatment Upcoming Encounters Date Type Specialty Care Team Description 09/10/2022 Office Visit Internal Medicine Margot Branham MD [address] [address] (Wo rk) documented as of this encounter Visit Diagnoses Not on filedocumented in this encounter Care Teams Cad Technician Relationship Specialty Start Date End Date Balbir Simpson MD PCP - General Internal Medicine 03/26/15 04/12/16 documented as of this encounter
--- OUTSIDE RECORDS SUMMARY | 2022-07-30 19:29 | XMS_ITS | Encounter Summary ---
:1945 Author Organization [place] Address [address] [place] [address]. [place] [address] Care Team Providers Name Role Phone Lisseth Vang MD Primary Care Provider Carlota Landeros MD Unavailable Luz Maria Kelly MD Unavailable Lisseth Vang MD Unavailable Reason for Visit Reason Comments Other Encounter Details Date Type Department Care Team Description 04/21/2016 Documentation Only [facility] Aleena Mcknight [address] [facility] [address] [place] [address] Social History Tobacco Use Types [...] Internal Medicine Margot Branham MD [address] [address] (Wo rk) documented as of this encounter Visit Diagnoses Diagnosis ACP (advance care planning) - Primary Other specified counseling documented in this encounter Care Teams Crate Maker Relationship Specialty Start Date End Date Lisseth Vang MD PCP - General 04/13/16 11/14/19 [address] [facility] [address] [place] [address] Carlota Landeros MD MD Urology 04/10/[address] [place] [address] Luz Maria Kelly MD MD Internal Medicine 03/27/16 02/22/17 Lisseth Vang MD PCP Family Practice 03/30/16 11/14/[address] [place] [address] documented as of this encounter
--- OUTSIDE RECORDS SUMMARY | 2022-07-30 19:29 | XMS_ITS | Encounter Summary ---
:1945 Author Organization [facility] Address [address] [place] [address]. [place] [address] Care Team Providers Name Role Phone Mehreen Johnston MD PhD Primary Care Provider [phone] Reason for Visit Reason Comments Consult possible sinus infection Encounter Details Date Type Department Care Team Description 03/14/2015 Office Visit Ear, Nose and Throat Mayur Brewer MD Chronic rhinitis (Primary Dx); Clinic [address] [facility] [place] Nasal obstruction 8th Floor, Clinic 8A [facility] [place], [place] [address] [place] [address] [facility] (Work) [place] [address] Social History Tobacco Use Types Packs/Day Years Used Date Smoking Tobacco: Never Smokeless Tobacco: Never Tobacco Cessation: Counseling Given: No Alcohol Use Standard Drinks/Week Comments Yes 0 (1 standard drink = 0.6 oz pure alcoho l) wine few times/wk Sex Assigned at Date Recorded Female 12/20/2018 4:10 PM CDT documented as of this encounter Patient Instructions Patient InstructionsMargot Cooper RN - 03/14/2015 8:35 AM CDT Plan of care: 1. Continue the Astilin until you get the Flonase: use Flonase 2 sprays each nostril once a day 2. Use the Atrovent up to 3 times day for your runny nose-2 sprays each nostril 3. Use the Saline spray 4-5 times a day for dryness Clinic contact information: 1. To schedule an appointment call [phone], option 1 2. To talk to the senior technical analyst call [phone], option 3 3. If you need to speak to Margot or get a message to your doctor on a Wednesday, call the sql server architect documented in this encounter Progress Notes Honey Brewer MD - 03/14/2015 8:09 AM CDT March 14, 2015 Otolaryngology Adult Consultation Patient: Yamileth Sheikh : 1945 Patient presents with: Consult: possible sinus infection Referring Provider: Referred Self Consulting Physician: Honey Brewer MD HPI: Yamileth Sheikh is a 69 year old female seen today in the Otolaryngology Clinic for post nasal drip and nasal congestion. She reports experiencing 2 sinus infections per year and she typically responds well to antibiotics. When she is not having an active infection, she constantly experiences nasal congestion, especially when laying down at night. She has been taking Benadryl and guaifenesin daily and she also uses Astelin, which she was prescribed years ago by her primary care physician. She also complains of ongoing phlegm and post nasal drainage which is worse while eating. She often hasto use a tissue to wipe the phlegm out of her mouth while eating. Several years ago I performed a tur binate reduction on her, with good results for her breathing. Current Outpatient Rx Name Route Sig Dispense Refill ??? guaiFENesin 1200 MG TB12 Oral ??? estradiol (ESTRING) 2 [address] vaginal [address] 1 each vaginally every 3 months 1 each 4 ??? estradiol (ESTRACE VAGINAL) 0.1 MG/GM vaginal cream Vaginal Place 2 g vaginally three times a week After using daily for 2 weeks. 42.5 g 12 ??? azelastine (ASTELIN) 137 MCG/SPRAY nasal spray Both Nostrils Alvarado 1-2 sprays into both nostrils 2 times daily 90 mL 1 ??? valACYclovir (VALTREX) 1000 mg tablet Oral Take 1 tablet (1,000 mg) by mouth 3 times daily 20 tablet 1 ??? Multiple Vitamins-Minerals (MATURE BALANCE PO) Oral Take 1 tablet by mouth Without iron ??? B Complex Vitamins (VITAMIN-B COMPLEX PO) Oral Take 1 tablet by mouth daily ??? vitamin C (VITAMIN C) 250 MG tablet Oral Take 250 mg by mouth as needed ??? LYSINE PO Oral Take 1 capsule by mouth daily ??? CALCIUM CITRATE-VITAMIN D PO Oral Take 2 tablets by mouth daily Calcium-500 mg Vitamin d-150 iu ??? diphenhydrAMINE (BENADRYL) 25 MG tablet Oral Take 25 mg by mouth every 6 hours as needed. ??? Glucosamine-Chondroitin (GLUCOSAMINE CHONDR COMPLEX PO) Oral Take 1 tablet by mouth. With MSN ??? Magnesium 200 MG TABS Oral Take 4 tablets by mouth daily. ??? fish oil-omega-3 fatty acids (OMEGA 3) 1000 MG capsule Oral Take 2 capsules by mouth 2 times daily. ??? OTHER MEDICAL SUPPLIES ROCÍO stockings knee length USE DIRECTED . ??? OTHER MEDICAL SUPPLIES ROCÍO Stockings thigh length ??? cholecalciferol (VITAMIN D3) 1000 UNIT tablet Oral Take 2 tablets by mouth daily. ??? Perindopril Erbumine 2 MG TABS Oral Take 1 tablet by mouth daily 90 tablet 3 ??? hydrocortisone-pramoxine (PROCTOFOAM-HC) rectal foam Rectal Place 1 applicator rectally 2 times daily 15 g 6 ??? polyethylene glycol (MIRALAX) powder Oral Take 17 g by mouth daily 510 g 1 Allergies: Propofol; Codeine; Morphine; Latex; Nickel; and Tape Past Medical History Diagnosis Date ??? Rhinitis ??? Fibroid uterus ??? Deviated nasal septum Dr Baer ENT ??? PONV (postoperative nausea and vomiting) ??? Osteoarthritis right hip ??? Hypertension age 66 no medication ??? Urinary problem 2010 has a bladder implant, interstim ??? Mixed incontinence Past Surgical History Procedure Laterality Date ??? [...] LEADS SACRAL NERVE (STAGE ONE AND TWO); Surgeon:ALEX ACUÑA;Location:[facility] ??? Hc colonoscopy thru stoma, diagnostic +FHx 2007 ??? Hrw vein stripper Left 1996 Family History Problem Relation Age of Onset [...] Sister uterine cancer ??? Parkinsonism Sister History Substance Use Topics ??? Smoking status: Never Smoker ??? Smokeless tobacco: Never Used ??? Alcohol Use: Yes Comment: wine few times/wk Review of Symptoms: Positive findings include: Nasal congestion, post nasal drainage. Physical Exam: The patient is alert, oriented and in no acute distress. Head, face scalp is grossly normal. Ears demonstrate normal canals, auricles and tympanic membranes. External nose is straight, skin is normal. Intranasal exam (anterior rhinoscopy) reveals normal moist mucosa, turbinate tissue without edema, erythema or crusting. Septum mainly in the midline. Oral cavity shows healthy mucosa with out ulceration, masses or other lesions involving the tongue, palate, buccal mucosa, floor of mouth or gingiva. Dentition in good repair. Oropharynx with normal tonsils, posterior wall and base of tongue. Neck is without adenopathy, thyroid or salivary gland masses. Assessment/Plan: Yamileth presents with nasal congestion and post nasal drainage. I recommended discontinuing Benadryl and guaifenesin, and she can continue to use Astelin. I also recommended using fluticasone daily and saline nasal irrigations. She was prescribed Atrovent to use for vasomotor rhinitis, which she experiences especially while eating. I also recommended staying hydrated and using ocean spray as needed to keep the nose moist. She will return as needed. I, Honey Brewer MD, have reviewed the above note and agree with the scribe's notation as written. I, Yamileth Christian, am serving as a scribe to document services personally performed by Honey Brewer MD, based upon my observations and the provider's statements to me. All documentation has been reviewed by the aforementioned doctor prior to being entered into the official medical record. documented in this encounter Nursing Notes Ju Velasco CMA - 03/14/2015 8:05 AM CDT Chief Complaint Patient presents with ??? RECHECK possible sinus infection Ju Velasco MA documented in this encounter Plan of Treatment Upcoming Encounters Date Type Specialty Care Team Description 09/10/2022 Office Visit Internal Medicine LogMargot sadler MD [address] [address] (Wo rk) documented as of this encounter Visit Diagnoses Diagnosis Chronic rhinitis - Primary Nasal obstruction Other diseases of nasal cavity and sinus es documented in this encounter Care Teams Human Resources Mgr Relationship Specialty Start Date End Date Mehreen Johnston MD PhD PCP - General Family Practice 11/27/13 03/25/15 documented as of this encounter
--- OUTSIDE RECORDS SUMMARY | 2022-07-30 19:29 | XMS_ITS | Encounter Summary ---
:1945 Author Organization [facility] Address [address] [place] [address]. [place] [address] Care Team Providers Name Role Phone Lisseth Vang MD Primary Care Provider Carlota Landeros MD Unavailable Luz Maria Kelly MD Unavailable Lisseth Vang MD Unavailable Reason for Visit Reason Comments Hypertension Patient here for blood press ure check. Encounter Details Date Type Department Care Team Description 07/01/2016 [facility] Primary Care Nurse, Pcc Hyper tension (Patient Health/Nurse Clinic here for blood Visit [address] [facility] press... 4th [place] [address] Social History Tobacco Use Types Packs/Day Years Used Date Smoking Tobacco: Never Smokeless Tobacco: Never Alcohol Use Standard Drinks/Week Comments Yes 0 (1 standard drink = 0.6 oz pure alcoho l) wine few times/wk Sex Assigned at Date Recorded Female 12/20/2018 4:10 PM CDT documented as of this encounter Last Filed Vital Signs Vital Sign Reading Time Taken Comments Blood Pressure 142/83 07/01/2016 3:36 PM CDT Pulse 71 07/01/2016 3:36 PM CDT Temperature - - Respiratory Rate - - Oxygen Saturation - - Inhaled Oxygen Concentration - - Weight - - Height - - Body Mass Index - - documented in this encounter Nursing Notes Barbara Potter LPN - 07/01/2016 3:34 PM CDT Patient here for blood pressure check, see vitals from more information. Barbara Potter LPN at 3:35 PM on 07/01/2016. documented in this encounter Plan of Treatment Upcoming Encounters Date Type Specialty Care Team Description 09/10/2022 Office Visit Internal Medicine LogMargot sadler MD [address] [id number] (Wo rk) documented as of this encounter Visit Diagnoses Diagnosis Elevated blood pressure reading without diagnosis of hypertension - Primary documented in this encounter Care Teams Associate Relationship Specialty Start Date End Date Lisseth Vang MD PCP - General 04/13/16 11/14/[address] [place], [place] [address] Carlota Landeros MD MD Urology 04/10/[address] [place], [place] [address] Luz Maria Kelly MD MD Internal Medicine 03/27/16 02/22/17 Lisseth Vang MD PCP Family Practice 03/30/16 11/14/[address] [place], [place] [address] documented as of this encounter
--- OUTSIDE RECORDS SUMMARY | 2022-07-30 19:29 | XMS_ITS | Encounter Summary ---
:1945 Author Organization [facility] Address [address] [facility] [place] [address] Care Team Providers Name Role Phone Balbir Simpson MD Primary Care Provider [phone] Reason for Visit Auth/Cert - Closed Specialty Diagnoses / Procedures Referred By Contact Refer red To Contact Surgery Diagnoses Stress Incontinence Ur Periop Procedures CYSTOSCOPY, SLING TRANSVAGINAL [address] [place] [address] Phone: Fax: Referral ID Status Reason Start Date Expiration Date Visits Requ ested Visits Authorized [id number] Closed 1 1 Encounter Details Date Type Department Care Team Description 03/26/2015 Hospital Encounter UR PREOP/PHASE II Nakib, Nissrine Mixed incontinence [address] [place] MD (Primary Dx) [place] [id number] [phone] [address] [place] [address] Social History Tobacco Use Types Packs/Day Years [...] Castillo RN - 03/26/2015 10:23 AM CDT [facility] Adult Discharge Orders & Instructions [...] pharmacist before using any other medicine, including [id number] medicines,vitamins, and herbal products. Tell your doctor [...] length USE DIRECTED . fluticasone (FLONASE) 50 Al[place] 2 sprays into 1 Package 6 04/13/2015 MCG/ACT nasal both nostrils daily sprayIndications: Nasal obstruction azelastine (ASTELIN) 137 Al[place]imer 1-2 sprays 90 mL 1 01/0701/10/2016 MCG/SPRAY [...] times foamIndications: External daily hemorrhoids ipratropium (ATROVENT) Altheimer 2 sprays into 1 Box 6 03/0401/10/2016 [...] PM CDT [facility] Progress Note [facility] ([facility]) Pre-Op Attempted visit per pt file request, but she was discharged just before I got there. Danny Trujillo Mgmt Consultant Sample Maker Original Pager [phone] documented in this encounter Nursing Notes Arianne Lemus RN - 03/26/2015 12:58 PM CDT Patient concerned about red blood when voiding after surgery. Dr. Landeros called and made aware. Dr Landeros stated that she should keep an eye on it and call if worse. Patient updated Latanya Alves RN - 03/26/2015 10:09 AM CDT Report to Massiel Castillo RN. Handoff of care. Mitul Dover RN - 03/26/2015 8:31 AM CDT Pt [...] were inserted into the urethra and a 16-Liberian Marcus catheter was placed. An Allis clamp [...] right hand side. We then placed a 20-Liberian cystoscope through the urethra and into the [...] Villatoro MD - 03/26/2015 10:00 AM CDT [facility] Brief Operative Note Pre-operative diagnosis: Stress Incontinence [...] Visit Internal Medicine LogeaMargot man MD [address] [address] (Wo rk) documented as of this encounter [...] TESTING documented in this encounter Visit Diagnoses Diagnosis Mixed incontinence - Primary Mixed incontinence urge and stress (male )(female) documented in this encounter Administered Medications Inactive Administered Medications - up to 3 most recent administrations Medication Order MAR Action Action Date Dose Rate Site ondansetron (ZOFRAN) injection 4 mg Given 03/26/2015 [...] patch (COMPLETED) 0900 (Given - Provider: Deja Mayes, MODESTA) 1 patch, Transdermal, ONCE, On Wed at [...] INJECTION, EXP: 12/2015, LOT; [id number]) PRN, Starting Wed03/26/15 at 0938, Intra-procedure ondansetron (ZOFRAN) injection 4 mg (CANCELED) 1048 (Given - Provider: Mila Castillo, RN) 4 mg, Intravenous, EVERY 30 MIN PRN, juana sea, vomiting, for 2 Minutes, Starting e 03/26/15 at 0949, For 2 doses, MAX total dose = 8 mg, including OR dosing. This is step 1 of the nausea and vomiting pro tocol. If not resolved in 15 minutes, th en go to step 2 (Prochlorperazine if ordered)., PACU/Phase II documented in this encounter Care Teams Naturopath Relationship Specialty Start Date End Date Balbir Simpson MD PCP - General Internal Medicine 03/26/15 04/12/16 documented as of this encounter
--- OUTSIDE RECORDS SUMMARY | 2022-07-30 19:29 | XMS_ITS | Encounter Summary ---
:1945 Author Organization [facility] Address [address] [place] [address]. [place] [address] Care Team Providers Name Role Phone Lisseth Vang MD Primary Care Provider Balbir Simpson MD Primary Care Provider [phone] Carlota Landeros MD Unavailable Luz Maria Kelly MD Unavailable Lisseth Vang MD Unavailable Encounter Details Date Type Department Care Team Description 04/02/[address] [facility] Anh Costa hypertension Cardiovascular Disease CLAUIDA Marsh CNP wit h goal blood Prevention pressure less than [address] [facility] 130/80 (Primary Dx) 5th [place] [address] Social History Tobacco Use Types [...] Visit Internal Medicine LogeaMargot man MD [address] [facility] [address] [place] [address] (Wo rk) documented as of this encounter Visit Diagnoses Diagnosis Essential hypertension with goal blood p ressure less than 130/80 - Primary documented in this encounter Care Teams Steel Floor Pan Placing Supervisor Relationship Specialty Start Date End Date Lisseth Vang MD PCP - General 04/13/16 11/14/[address] [place], [place] [id number] Balbir Simpson MD PCP - General Internal Medicine 03/26/15 04/12/16 Carlota Landeros MD MD Urology 04/10/[address] [place], [place] [id number] Luz Maria Kelly MD MD Internal Medicine 03/27/16 02/22/17 Lisseth Vang MD PCP Family Practice 03/30/16 11/14/[address] [place], [place] [address] documented as of this encounter
--- OUTSIDE RECORDS SUMMARY | 2022-07-30 19:29 | XMS_ITS | Encounter Summary ---
:1945 Author Organization [facility] Address [address] [place] [address]. [place] [address] Care Team Providers Name Role Phone Mehreen Johnston MD PhD Primary Care Provider [phone] Reason for Visit Audiology - Closed Specialty Diagnoses / Procedures Referred By Contact Refer red To Contact Audiology Diagnoses CRAIG (hard of hearing), unspecified laterality [address] [address] Phone: Fax: Referral ID Status Reason Start Date Expiration Date Visits V isits Requested Authorized [facility] Closed 01/08/2015 10/03/[phone] ([id number]) Encounter Details Date Type Department Care Team Description 03/14/2015 Office Visit [facility] Honey Brewer MD [address] [facility] [address] [place] [address] CRAIG (hard of Clinic Audiology Latanya Quintana, AuD [address] [place] [address] hearing), unspecified [place] laterality (Primary [address] Dx) [facility] [address] 8th Floor clinic [address] [facility] [place] [address] Social History Tobacco Use Types Packs/Day Years Used Date Smoking Tobacco: Never Smokeless Tobacco: Never Alcohol Use Standard Drinks/Week Comments Yes 0 (1 standard drink = 0.6 oz pure alcoho l) wine few times/wk Sex Assigned at Date Recorded Female 12/20/2018 4:10 PM CDT documented as of this encounter Progress Notes Latanya Quintana AuD - 03/15/2015 4:59 PM CDT Adult Audiology Evaluation Background: Yamileth Sheikh was seen today for an audiology evaluation. She reported longstanding low frequency loss and was unsure of hearing changes. Also reported bilateral tinnitus and history of noise exposure. Denied pain, dizziness or ear surgeries Test Results: Otoscopy revealed clear canals bilaterally. Standard techniques were used to obtain thresholds from 250-8,000 Hz using insert and TDH headphones and revealed mild rising to normal sensorineural hearing loss in the right ear and mild to moderate rising to normal sensorineural hearing lossin the left ear. No significant change in thresholds since last audiogram 12/10/11. Speech information receptionist thresholds and pure-tone averages were in agreement, indicative of good reliability. Word recognition was 100% at 70 dB HL with 50 dB of masking. Tympanograms indicated normal eardrum mobility bilaterally. Elevated ipsilateral reflexes bilaterally, present right contralateral reflex, absent left. Summary and Recommendations: Test results revealed bilateral mild/moderate rising to normal sensorineural hearing loss. Due to results the following recommendations include tinnitus/hearing aid consultation per patient desire and annual hearing testing, sooner per concern. Results of the testing were discussed with patient. Please call me at [phone] if there are questions regarding these results or recommendations. Rudy Covarrubias Driver/Guide [place] License #[id number] documented in this encounter Plan of Treatment Upcoming Encounters Date Type Specialty Care Team Description 09/10/2022 Office Visit Internal Medicine Margot Branham MD [address] [place] [address] (Wo rk) documented as of this encounter Procedures Procedure Name Priority Date/Time Associated Diagnosis Comme nts AUDIOGRAM/TYMPANOGRAM - 03/14/2015 9:54 AM CDT INTERFACE documented in this encounter Results AUDIOGRAM/TYMPANOGRAM - INTERFACE (03/14/2015 9:54 AM CDT) Specimen (Source) Anatomical Collection Method Collection Time Re ceived Time Location / / Volume Laterality 03/14/2015 9:54 AM CDT Narrative This result has an attachment that is no t available. Provider Unknown PROCEDURES documented in this encounter Visit Diagnoses Diagnosis CRAIG (hard of hearing), unspecified later ality - Primary documented in this encounter Care Teams Equipment Analyst Relationship Specialty Start Date End Date Mehreen Johnston MD PhD PCP - General Family Practice 11/27/13 03/25/15 documented as of this encounter
--- OUTSIDE RECORDS SUMMARY | 2022-07-30 19:29 | XMS_ITS | Encounter Summary ---
:1945 Author Organization [facility] Address [address] [place] [address]. [place] [address] Care Team Providers Name Role Phone Balbir Simpson MD Primary Care Provider [phone] Carlota Acuña MD Unavailable Balbir Simpson MD Unavailable [phone] Reason for Visit Reason Comments Physical Pt states she is here for a physical and would like to discuss left knee pain, tinnitus, and nasal co ngestion. Encounter Details Date Type Department Care Team Description 01/10/2016 Office Visit [facility] Primary Care Balbir Simpson for colon cancer (Primary Dx); Clinic MD Juvencio Seasonal allergies; [address] [place] [address] Chronic rhinitis; [address] Floor [place], [place] Vaginal dryness; [place] [address] Atrophic vaginitis; [id number] Recurrent cold sores; Vitamin D deficiency; [phone] Hyperlipidemia, unspecified hyperlipidemia; (Fax) External hemorr hoids Social History Tobacco Use Types Packs/Day Years Used Date Smoking Tobacco: Never Smokeless Tobacco: Never Alcohol Use Standard Drinks/Week Comments Yes 0 (1 standard drink = 0.6 oz pure alcoho l) wine few times/wk Sex Assigned at Date Recorded Female 12/20/2018 4:10 PM CDT documented as of this encounter Last Filed Vital Signs Vital Sign Reading Time Taken Comments Blood Pressure 134/82 01/10/2016 8:22 AM CDT Pulse 56 01/10/2016 8:22 AM CDT Temperature - - Respiratory Rate 14 01/10/2016 7:08 AM CDT Oxygen Saturation - - Inhaled Oxygen Concentration - - Weight 81.6 kg (180 lb) 01/10/2016 7:08 AM CDT Height 168.9 cm (5' 6.5) 01/10/2016 7:08 AM CDT Body Mass Index 28.62 01/10/2016 7:08 AM CDT documented in this encounter Patient Instructions Patient InstructionsStLo granados - 01/10/2016 7:08 AM CDT Primary Care Center Medication Refill Request Information: * Please contact your pharmacy regarding ANY request for medication refills. [facility] Prescription Fax = [phone] * Please allow 3 business days for [...] encounter Progress Notes Balbir Simpson MD - 01/10/2016 7:36 AM CDT HPI HISTORY OF PRESENT ILLNESS: This 70-year-old woman presents today for physical examination. She was recently seen at the [facility]. She had a colonoscopy done there. She had a pelvic exam with uterine ultrasound confirming the presence of her fibroid. She has not had any recent bleeding or spotting or pain related to this. Mammography sought some questionable cystic lesions which were evaluated with ultrasound and felt to be benign. She has had problems recently with her knees. This is right greater than left. It seems to bother her on stairs and when she initially gets up. She walks around [facility] and a mile or so in the walk she can experience some pain and discomfort in the right knee. She has not had any swelling here. She has not had any injury or trauma. There is no locking or buckling. She has had some degenerative changes in her hands, but minimal pain and discomfort associated with this. She has been monitoring her blood pressure infrequently. She reports that it has been doing reasonably well. She does not have any numbers to review. She was given an KAILYN inhibitor to start last year. She has this on hand. She has yet to start it. She has not had any followup on her lipids, but she remains unmotivated to take medication for this at all. No chest pain, dyspnea or other symptoms associated with her walking and exercise. Past Medical History Diagnosis Date ??? Fibroid [...] ??? Myocardial Infarction Maternal Grandfather 82 of [place] ??? Cardiovascular Paternal Grandmother age 65 of heart problems ??? Pneumonia Paternal Grandfather age 70 after flu ??? Cancer Sister uterine cancer ??? Parkinsonism Sister History Social History ??? Marital Status: Single Spouse Name: N/A Number of Children: N/A ??? 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 Smoking status: [...] 1 son - - still working at [employer] - greenlandic as a second language - lives in a house - retiring - March 2015 Answers for HPI/ROS submitted by the patient on 12/30/2015 General Symptoms: No Skin Symptoms: Yes HENT Symptoms: Yes EYE SYMPTOMS: No HEART SYMPTOMS: No LUNG SYMPTOMS: No INTESTINAL SYMPTOMS: No URINARY SYMPTOMS: No GYNECOLOGIC SYMPTOMS: No BREAST SYMPTOMS: No SKELETAL SYMPTOMS: No BLOOD SYMPTOMS: No NERVOUS SYSTEM SYMPTOMS: No MENTAL HEALTH SYMPTOMS: No Changes in hair: No Changes in moles/ mohan: No Itching: Yes Rashes: No Changes in nails: No Acne: No Hair in places you don't want it: No Change in facial hair: No Warts: No Non-healing sores: No Scarring: No Flaking of skin: No Color changes of hands/feet in cold : No Sun sensitivity: No Skin thickening: No Ear pain: No Ear discharge: No Hearing loss: No Tinnitus: Yes Nosebleeds: No Congestion: Yes Sinus pain: No Trouble swallowing: No Voice hoarseness: No Mouth sores: No Sore throat: No Tooth pain: No Gum tenderness: No Bleeding gums: No Change in taste: No Change in sense of smell: No Dry mouth: No Hearing aid used: No Neck lump: No Exam: BP 152/82 mmHg Pulse 61 Resp 14 Ht 1.689 m (5' 6.5) Wt 81.647 kg (180 lb) BMI 28.62 kg/m2 ? No 180 lbs 0 oz PHYSICAL EXAMINATION: The patient is alert, oriented with a clear sensorium. Skin shows no lesions or rashes and good turgor. Head is normocephalic and atraumatic. Eyes show PERRLA. Fundi are benign but poorly seen secondary to miosis and cataract L>R. Ears show normal TMs bilaterally. Mouth shows clear oral mucosa. Neck shows no nodes, thyromegaly or bruits. Back is nontender. Lungs are clear to percussion and auscultation. Heart shows normal S1 and S2 without murmur or gallop. Abdomen is soft, nontender without masses or organomegaly. Extremities show superficial venous varicosities, no edema, Heberden's nodes bilaterally, MCP DJD and no evidence of active synovitis, knees show sub- patellar crepitus, positive Jhony test bilaterally, rt Bakers cyst with medial jointline tenderness, FROM no instability. Neurologic examination shows cranial nerves II-XII intact. Motor shows normal strength. Reflexes arefull and symmetrical. ASSESSMENT: 1. 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 2. Uterine fibroids. 3. Hypertension, inadequately controlled. 4. Hyperlipidemia, needs reevaluation. 5. Osteoarthritis of the hands. 6. History of hemorrhoids. PLAN: We are going to reassess her labs today including her hs-CRP, again raised the issue of possible statin therapy, but she did not seem motivated to do this. I gave her an exercise program for stretching her tight hamstrings and strengthening her quadriceps for the knees. She continues the glucosamine for this. I encouraged her to take an Aleve as needed for discomfort. We will have her monitor her blood pressure, start her KAILYN inhibitor. Follow up with this in 6 months, follow up sooner or immediately if any increased symptoms or problems. She is current on her screening and immunizations. Hermeds were refilled. Balbir Simpson MD General Internal Medicine [facility] [phone] documented in this encounter Nursing Notes Lo Castro - 01/10/2016 7:08 AM CDT Chief Complaint Patient presents with ??? Physical Pt states she is here for a physical and would like to discuss left knee pain, tinnitus, and nasal congestion. Lo Castro RMA documented in this encounter Plan of Treatment Upcoming Encounters Date Type Specialty Care Team Description 09/10/2022 Office Visit Internal Medicine LogeaMargot man MD [address] [place] [phone] (Wo rk) documented as of this encounter Procedures Procedure Name Priority Date/Time Associated Diagnosis Comme nts VITAMIN D Routine 01/10/2016 8:45 AM Vitamin D def iciency Results for this DEFICIENCY CDT Screen for colon procedure a re in SCREENING cancer the results Seasonal allergi es section. Chronic rhinitis Vaginal dryness Atrophic vaginit is Recurrent cold s ores Hyperlipidemia, unspecified hyperlipidemia CRP CARDIAC RISK Routine 01/10/2016 8:45 AM Hyperlipidemia, Re sults for this CDT unspecified procedure are i n hyperlipidemia the results Screen for colon section. cancer Seasonal allergi es Chronic rhinitis Vaginal dryness Atrophic vaginit is Recurrent cold s ores Vitamin D deficiency documented in this encounter Results CRP cardiac risk (01/10/2016 8:45 AM CDT) athologist Signature CRP Cardiac 3.2 mg/L [facility] Comment: Reference Values: Low Risk: ? <1.0 mg/L Average Risk: ? 1.0-3.0 mg/L High Risk: ?>3.0 mg/L Acute Inflammation: >8.0 mg/L Specimen Anatomical Collection Method Collection Time Receive d Time (Source) Location / / Volume Laterality Blood specimen 01/10/2016 8:45 AM 016 8:46 (specimen) CDT AM CDT Balbir Simpson MD LAB - BLOOD ORDERABLES Performing Organization Address City/State/ZIP Code Phon e Number [facility] [address] [place] [address] [facility] Vitamin D Deficiency (01/10/2016 8:45 AM CDT) athologist Signature Vitamin D 37 20 - 75 [facility] Deficiency ug/L [facility] Comment: Season, race, dietary intake, and treatm ent affect the concentration of 25-othqhpa-Rakmcas D. Values may decrea se during winter months and increase during summer months. Values 20-29 ug/L may indicate Vitamin D insufficiency and values <20 ug/L may indicate Vitami n D deficiency. Vitamin D determination is routinely pe rformed by an immunoassay specific for 25 hydroxyvitamin D3. ??If an individua l is on vitamin D2 (ergocalciferol) supplementation, please specify 25 [place] v itamin D2 and D3 level determination by LCMSMS test VITD23. Specimen Anatomical Collection Method Collection Time Receive d Time (Source) Location / / Volume Laterality Blood specimen 01/10/2016 8:45 AM 016 8:46 (specimen) CDT AM CDT Balbir Simpson MD LAB - BLOOD ORDERABLES Performing Organization Address City/State/[facility] Code Phon e Number [facility] [address] [place], [place] [id number] [place] [address] documented in this encounter Visit Diagnoses Diagnosis Screen for colon cancer - Primary Special screening for malignant neoplasm s, colon Seasonal allergies Allergic rhinitis, cause unspecified Chronic rhinitis Vaginal dryness Other specified symptom associated with female genital organs Atrophic vaginitis Postmenopausal atrophic vaginitis Recurrent cold sores Herpes simplex without mention of compli cation Vitamin D deficiency Unspecified vitamin D deficiency Hyperlipidemia, unspecified hyperlipidem ia External hemorrhoids External hemorrhoids without mention of complication documented in this encounter Care Teams Hydrogen Cell Tender Relationship Specialty Start Date End Date Balbir Simpson, PCP - General Internal Medicine 03/26/15 04/12/16 Carlota Acuña MD MD Urology 04/10/[id number] [place] [address] Balbir Simpson, Referring Physician Internal Medicine 04/0303/29/16 documented as of this encounter
--- OUTSIDE RECORDS SUMMARY | 2022-07-30 19:29 | XMS_ITS | Encounter Summary ---
:1945 Author Organization [facility] Address [address] [place] [address]. [place] [address] Care Team Providers Name Role Phone Balbir Simpson MD Primary Care Provider [phone] Carlota Landeros MD Unavailable Balbir Simpson MD Unavailable [phone] Encounter Details Date Type Department Care Team Description 06/14/2015 Office Visit [facility] Aid Clinic at [facility] Carrol Quintana [address] [place] [phone] Social History Tobacco Use Types Packs/Day Years Used Date Smoking Tobacco: Never Smokeless Tobacco: Never Alcohol Use Standard Drinks/Week Comments Yes 0 (1 standard drink = 0.6 oz pure alcoho l) wine few times/wk Sex Assigned at Date Recorded Female 12/20/2018 4:10 PM CDT documented as of this encounter Progress Notes Latanay Quintana, Sharmaine - 06/14/2015 4:14 PM CDT AUDIOLOGY REPORT BACKGROUND INFORMATION: Yamileth Sheikh was seen in the Audiology Clinic at [facility] 06/14/15 to discuss concerns with hearing and functional communication difficulties. 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 The patient will medically evaluated and determinedto be cleared for binaural hearing aids by Dr. Mcgregor 07/03/15, and returns to be discuss options to mud mixer helper in communication. Patient's major complaint is bilateral tinnitus. TEST RESULTS AND PROCEDURES: Based on their hearing loss and reported difficulty with tinnitus, the patient was presented with different options for amplification to mud mixer helper in communication. We discussed the mechanisms of tinnitus and that many times when a hearing loss is present amplification can help reduce the perception ofit. The patient expressed interest in Widex Pablo programs. The hearing aids mutually chosen were Widex Dream 330 Fusions and will be ordered in [facility]. The patient was given a copy of the [facility] consumer brochure on purchasing hearing instruments. Bilateral earmolds were taken without incident. SUMMARY AND RECOMMENDATIONS: Hearing aids ordered. Please call this clinic with questions regarding these results or recommendations. Rudy Covarrubias Head Teller [place] License #[id number] documented in this encounter Plan of Treatment Upcoming Encounters Date Type Specialty Care Team Description 09/10/2022 Office Visit Internal Medicine Margot Branham MD [address] [place] [phone] (Wo rk) documented as of this encounter Visit Diagnoses Not on filedocumented in this encounter Care Teams Rolled Ham Lacer Relationship Specialty Start Date End Date Balbir Simpson, PCP - General Internal Medicine 03/26/15 04/12/16 Carlota Landeros MD MD Urology 04/10/[address] [place] [address] Balbir Simpson, Referring Physician Internal Medicine 04/0303/29/16 documented as of this encounter
--- OUTSIDE RECORDS SUMMARY | 2022-07-30 19:29 | XMS_ITS | Encounter Summary ---
:1945 Author Organization [facility] Address [address] [place] [address]. [place] [address] Care Team Providers Name Role Phone Mehreen Johnston MD PhD Primary Care Provider [phone] Reason for Visit Reason Onset Date Comments Labs Only 02/19/2015 Neg UA/UC Encounter Details Date Type Department Care Team Description 02/19/2015 Telephone [facility] Carlota Landeros, Labs Only (Neg UA/UC) [place] [id number] [facility] [address] [place], [place] [address] [place], [place] [phone] (Wo rk) Social History Tobacco Use Types Packs/Day Years Used Date Smoking Tobacco: Never Smokeless Tobacco: Never Alcohol Use Standard Drinks/Week Comments Yes 0 (1 standard drink = 0.6 oz pure alcoho l) wine few times/wk Sex Assigned at Date Recorded Female 12/20/2018 4:10 PM CDT documented as of this encounter Miscellaneous Notes Telephone Encounter - Lisa Mccord RN - 02/19/2015 1:05 PM CDT Called and left a message on informing her that the UA/UC came back neg, and to call with any questions or concerns. Lisa PERRY RNCC documented in this encounter Plan of Treatment Upcoming Encounters Date Type Specialty Care Team Description 09/10/2022 Office Visit Internal Medicine Margot Branham MD [address] [address] (Wo rk) documented as of this encounter Visit Diagnoses Not on filedocumented in this encounter Care Teams Injection Molding Process Technician Relationship Specialty Start Date End Date Mehreen Johnston MD PhD PCP - General Family Practice 11/27/13 03/25/15 documented as of this encounter
--- OUTSIDE RECORDS SUMMARY | 2022-07-30 19:29 | XMS_ITS | Encounter Summary ---
:1945 Author Organization [facility] Address [facility] [place] [address] Care Team Providers Name Role Phone Mehreen Johnston MD PhD Primary Care Provider [phone] Reason for Visit Reason Onset Date Comments Orders 01/09/2015 Encounter Details Date Type Department Care Team Description 01/09/2015 Telephone [facility] Nurse, [facility] Orders [place] [address] Profession [address]g [facility] [address] [place], [place] [phone] Social History Tobacco Use Types Packs/Day Years Used Date Smoking Tobacco: Never Smokeless Tobacco: Never Alcohol Use Standard Drinks/Week Comments Yes 0 (1 standard drink = 0.6 oz pure alcoho l) wine few times/wk Sex Assigned at Date Recorded Female 12/20/2018 4:10 PM CDT documented as of this encounter Miscellaneous Notes Telephone Encounter - Princess Velasquez LPN - 01/09/2015 10:13 AM CDT Left message for patient that referral was signed. Telephone Encounter - Princess Velasquez LPN - 01/09/2015 10:12 AM CDT ----- Message from Lisseth Vang MD sent at 01/08/2015 12:24 PM CDT ----- I put in the audiology referral Lisseth Vang MD documented in this encounter Plan of Treatment Upcoming Encounters Date Type Specialty Care Team Description 09/10/2022 Office Visit Internal Medicine Margot Branham MD [address] [place] [id number] (Wo rk) documented as of this encounter Visit Diagnoses Not on filedocumented in this encounter Care Teams Clinical Social Work Therapist Relationship Specialty Start Date End Date Mehreen Johnston MD PhD PCP - General Family Practice 11/27/13 03/25/15 documented as of this encounter
--- OUTSIDE RECORDS SUMMARY | 2022-07-30 19:29 | XMS_ITS | Encounter Summary ---
:1945 Author Organization [facility] Address [address] [place] [address]. [place] [address] Care Team Providers Name Role Phone Mehreen Johnston MD PhD Primary Care Provider [phone] Reason for Visit Reason Comments RECHECK mixed incontinence Encounter Details Date Type Department Care Team Description 02/18/[address] [facility] Nakhelio Nissrine A, Pattiee d incontinence urge and stress (male)(female) (Primary Dx); Clinic Evette Combs MD Urgency of urination; [address] Urinary retention [place], [place] [address] [address] [place], [place] [phone] Social History Tobacco Use Types Packs/Day Years Used Date Smoking Tobacco: Never Smokeless Tobacco: Never Alcohol Use Standard Drinks/Week Comments Yes 0 (1 standard drink = 0.6 oz pure alcoho l) wine few times/wk Sex Assigned at Date Recorded Female 12/20/2018 4:10 PM CDT documented as of this encounter Last Filed Vital Signs Vital Sign Reading Time Taken Comments Blood Pressure 144/78 02/18/2015 4:48 PM CDT Pulse 65 02/18/2015 4:48 PM CDT Temperature - - Respiratory Rate - - Oxygen Saturation - - Inhaled Oxygen Concentration - - Weight - - Height - - Body Mass Index - - documented in this encounter Patient Instructions Patient InstructionsLisa Mccord RN - 02/18/2015 5:12 PM CDT Surgery Instructions Always follow your surgeon???s instructions. If you don???t, your surgery could be cancelled. Pleaseuse the following checklist. Your surgery is on: The manager surgery will contact you within 1 week of your consult with the surgeon. If you do not hear from them, please call the clinic trust advisor Pipeline Dispatch Operator for your provider. Date: Time: Prearrival times can vary depending on location/type of surgery: [place] - 2 hour pre-arrival [facility] [place] - 2 hour pre-arrival [place] - 1 hour pre-arrival Procedure: Mid-urethral sling Anesthesia: MAC Post-op: 2 weeks and 6 weeks Notes: Note: These times may change. A nurse will call you before surgery to confirm. If you have not received a call or if you have more questions, please call us on the working day before your surgery: ? [place]: [phone] or [phone] (9am to 5:30pm) ? [facility] [place]: [phone] (8am to 6:00pm) ? [place]: [phone] (9 am to 5:30pm) Prior to surgery ? Have a pre-op physical exam with your Primary Doctor within 30 days of surgery - Ask your doctor to send all of your results to the surgery center/hospital before surgery. Your doctor also may ask you to bring the results with you on the day of surgery. - Tell your doctor if: - You are allergic to latex or rubber (latex and rubber gloves are often used in medical care). - You are taking any medicines (including aspirin), vitamins, or herbal products. You may need to stop taking some medicines before surgery. - You have any medical problems (allergies, diabetes, or heart disease, for example). - You have a pacemaker or an AICD (automatic implanted cardiac defibrillator). If you do, please bring the ID card with you on the day of surgery. - You are a smoker. People who smoke have a higher risk of infection after surgery. Ask your doctor how you can quit smoking. - If you Primary Doctor is not within the [employer] system, you will need to have your pre-op physical faxed to us to be scanned into your chart. - [place]: [phone] - [facility] ([place]): [phone] [facility]): [phone] ? Call your insurance company. Ask if you need pre-approval for your surgery. If you do not have insurance, please let us know. If you wish to speak to the financial systems director, please alert the clinic staff so this can be arranged. ? Arrange for someone to drive you home after surgery. Seismograph Helper will need to be a responsible adult (18 years or older) that will provide transportation to and from surgery and stay in the waiting room during your surgery. You may not drive yourself or take public transportation to and from surgery. ? Arrange for someone to stay with you for 24 hours after you go home. This person must be a responsible adult (18 years or older). ? Call your surgeon or their nurse if there is any change in your health (cold, flu, infections, hospitalizations). ? Do not smoke, drink alcohol, or take ygmh-vnt-hbldltl medicine for 24 hours before and after surgery. ? If you take prescribed drugs, you may need to stop them until after the surgery. Discuss what medications to take or not take prior to surgery with your Primary Doctor at your pre-op physical. Avoid soki-cbv-rorxocp blood-thinning medications such as Aspirin, Ibuprofen, vitamin E, or fish oil 7 daysprior to surgery (unless otherwise directed by your Primary Doctor). Tylenol is a good alternative for mild pain relief prior to surgery. ? Eating and drinking guidelines prior to surgery: - Stop all solid food consumption 8 hours prior to surgery - You may drink clear liquids up to 2 hours prior to surgery (water, fruit juices without pulp, jello, tea/coffee without creamer, sports drinks, clear-fat free broth (bouillon or consomme), popsicles (without milk, bits of fruit, or seeds/nuts) ? Follow instructions given for showering or bathing before surgery. - Use 8 ounces of antiseptic surgical soap, like: - Hibiclens, Scrub Care, or Exidine - You can find it at your local pharmacy, clinic, or retail store. If you have trouble, ask your pharmacist to help you find the right substitute. - Please wash with one of the above soaps twice before coming to the hospital for your surgery. Thiswill decrease bacteria (germs) on your skin. It will also help reduce your chance of infection aftersurgery. - Items you will need for showering: - 4 newly washed washcloths - 2 newly washed towels - 8 ounces of one of the above soaps - Following these instructions: - The evening before surgery: Shower or bathe as you normally would, using your regular soap and a clean washcloth. Give special attention to places where your incision (surgical cut) or catheters willbe. This includes your groin area. Rinse well. You may wash your hair with your regular shampoo. Next, wash your body with 4 ounces of the antiseptic soap. Use a clean, damp washcloth and gently clean your body (from the chin down). If your surgery involves your head, use the special soap on your headand scalp. Rinse well and dry off using a newly washed towel. - The morning of surgery: Repeat the same process as the evening shower. - Other suggestions: ??? Wear freshly washed pajamas or clothing after your evening shower. ??? Wear freshly washed clothes the day of surgery. ??? Wash and change your bed sheets the day before surgery to have clean bed sheets after your shower and when you get home from surgery. ??? If you have trouble washing all areas, make sure someone helps you. ??? Don't use any deodorant, lotion or powder after your shower. ??? Women who are menstruating should wear a fresh sanitary pad to the hospital. ? Do not wear or add deodorant, cologne, lotion, makeup, nail arabic or jewelry to surgery. If you wear fake nails, please remove at least one nail before coming to surgery (an oxygen monitor needs to be placed on your finger during surgery). ? Bring these items to the surgery center/hospital: - Insurance card - Money for parking and co-pays, if needed - A list of all the medicines you take. Include vitamins, minerals, herbs, and ijvn-fnr-sjwutut drugs. Note any drug allergies. - A copy of your advance health care directive, if you have one. This tells us what treatment you would want--and who would make health care decisions--if you could no longer speak for yourself. You may request this form in advance or download it from [email or web address]. - A case for glasses, contact lenses, hearing aids, or dentures. - Your inhaler or CPAP machine, if you use these at home. ? Leave extra kline, jewelry, and other valuables at home. When you arrive When you get to the surgery center/hospital, you will: ? Check in. If you are under age 18, you must be with a parent or legal guardian. ? Sign consent forms, if you haven???t already. These forms state that you know the risks and benefits of surgery. When you sign the forms, you give us permission to do the surgery. Do not sign them unless you understand what will happen during and after your surgery. If you have any questions about your surgery, ask to speak with your doctor before you sign the forms. If you don???t understand the answers, ask again. ? Receive a copy of the Patient???s Bill of Rights. If you do not receive a copy, please ask for one. ? Change into hospital clothes. Your belongings will be placed in a bag. We will return them to you after surgery. ? Meet with the anesthesia provider. He or she will tell you what kind of anesthesia (medicine) willbe used to keep you comfortable during surgery. Remember: it???s okay to remind doctors and nurses to wash their hands before touching you. In most cases, your surgeon will use a marker to write his or her initials on the surgery site. Thisensures that the exact site is operated on. For safety reasons, we will ask you the same questions many times. For example, we may ask your nameand date over and over again. Friends and family can stay with you until it???s time for surgery. While you???re in surgery, they will be in the waiting area. Please note that cell phones are not allowed in some patient care areas. If you have questions about what will happen in the operating room, talk to your care team. After surgery We will move you to a recovery room, where we will watch you closely. If you have any pain or discomfort, tell your nurse. He or she will try to make you comfortable. If you are staying overnight, we will move you to your hospital room after you are awake. If you are going home, we will move you to another room. Friends and family may be able to join you.The length of time you spend in recovery depend on the type of medicine you received, your medical condition, the type of surgery you had, or your response to the anesthesia given during your procedure. When you are discharged from the recovery room, the nurses will review instructions with you and your caregiver. ? Please wash your hands every time you touch the wound or change bandages or dressings. ? Do not submerge the wound in water. You may not use a bathtub or hot tub until the wound is closed. The wait time frame is generally 2-3 weeks, but any open area can be a source of incoming bacteria,so it is better to be on the safe side and avoid water submersion until your wound is fully healed. ? You may take a shower 24 hours after surgery. Double check with your surgeon if it is OK for waterto run over the wound, whether it has been sutured, stapled, glued, or is open. You may gently wash the wound using the antiseptic soap provided for your pre-surgery showering (do not use a washcloth).Any mild soap will work as well. ? Many surgical wounds will have small white strips of tape on them called steri-strips. Do not remove these. The edges will curl and fall off within 7-10 days with normal showering. ? If you are going home with sutures (stitches) or flaca, you must return to the clinic to have them taken out, usually within 1-2 weeks. Some stitches are dissolvable and do not require removal. Make sure to clarify with your surgeon or surgery nurse reviewing discharge paperwork what kind of sutures you have. ? Signs and symptoms of infection include: - Fever, temperature over 101.5 ??? F - Redness - Swelling - Increased pain - Green or yellow drainage which may or may not have a foul odor Dealing with pain A nurse will check your comfort level often during your stay. He or she will work with you to manageyour pain. Remember: ? All pain is real. There are many ways to control pain. We can help you decide what works best for you. ? Ask for pain medicine when you need it. Don???t try to ???tough it out?? --this can make you feel worse. Always take your medicine as ordered. ? Medicine doesn???t work the same for everyone. If your medicine isn???t working, tell your nurse. There may be other medicines or treatments we can try. Going home We will let you know when you???re ready to leave the surgery center or hospital. Before you leave, we will tell you how to care for yourself at home and prevent infections. If you do not understand something, please say so. We will answer any questions you have. We will then help you get ready to leave. Remember, you must have a responsible adult (18 years or older) to stay with you 24 hours after you leave the hospital. Take it easy when you get home. You will need some time to recover--you may be more tired than you realize at first. Rest and relax for at least the first 24 hours at home. You???ll feel better and heal faster if you take good care of yourself. Follow the discharge instructions that are given to you when you leave the surgery center or hospital Please call the clinic if you experience any problems during regular clinic hours (Wednesday-Wednesday 8:00am-5:00pm). If you experience problems during non- clinic hours, please call the [facility] on-call line at [phone] and ask the Teller to page the on-call Provider for your specialty. The on-call Provider will call you back and can triage your symptoms and further advise. If you arehaving an emergency, always call 911 or seek immediate evaluation at the Emergency Room. Locations [address] [address] (patient registration) [phone] (main line) [email or web address] [facility] [address] [place] [id number] [place] [address], 3rd floor for check-in [phone] (patient registration) [phone] (main line) [email or web address] documented in this encounter Progress Notes Carlota Landeros MD - 02/18/2015 4:51 PM CDT Reason for Visit: f/u to discuss sling Clinical Data: Ms. Ramona Sheikh is a 69 year old female with a hx of urinary urgency and mixed urinary incontinence. She underwent InterStim placement on 05/19/2011 and her symptoms have generally improved but she continues to c/o a weak stream. Urinary accidents have become rare, but she will leaksmall volumes with coughing, sneezing, or when nearing [...] 13 cm H2O; once moved to [facility] patient voided with Valsalva voiding with [...] ml. 6. Left hemipelvis InterStim lead on [facility] imaging. She was still having problems with stress incontinence but wanted to continue with the PT for this. RU today is 0 cc on bladder scan by nursing. A/P: 69 year old female with mixed incontinence. Discussed options of PT vs. Sling again . We discussed the use of mesh tape in surgery and the risks of infection, bleeding, exposure of mesh, vaginal pain, injury to the bladder/urethra/rectum, as well as risk of continued incontinence or urinary retention. We discussed the FDA public health notification at length. The pt. Verbalized understanding andhad a chance to ask her questions which were all answered. Pt. Would like to proceed with midurethral sling. -continue estrogen cream -schedule midurethral sling Thank you for allowing me to participate in the care of Ms. Ramona Sheikh and I will keep you updated on her progress. Carlota Landeros MD Over 25 min spent with patient, >50% in discussion and coordination of care. documented in this encounter Nursing Notes Lisa Mccord RN - 02/18/2015 5:13 PM CDT Teaching Topic: Pre-Surgical Information Person(s) involved in teaching: Patient Motivation Level: Asks Questions: Yes Eager to Learn: Yes Cooperative: Yes Receptive (willing/able to accept information): Yes Comments: Surgery Information: Patient demonstrates understanding of the following: Date and time of surgery: No patient to be contacted via phone with details of surgery once completed Location of surgery: [facility] History and physical and any other testing which must be completed prior to surgery Yes Required time line for completion of H&P and any other pre-op testing discussed:Yes NPO status prior to surgery: Yes Blood thinning medication discussed: Yes discussed when to stop Diabetes medication management discussed: Yes Patient to discuss with ordering provider Yes Infection Prevention: Patient demonstrates understanding of the following: Surgical procedure site care taught Yes Signs and symptoms of infection discussed Yes Instructional Materials given: Before your surgery packet , Showering or Bathing instructions before surgery and What to expect after surgery Pre-scrub soap given: yes Post-op appointment/testing scheduled per MD orders: No Imaging needed prior to surgery: No Lisa PERRY RNCC Ankita Danielson CMA - 02/18/2015 4:51 PM CDT post void residual - 0 mL.Ankita Danielson CMA (AAMA) Ankita Danielson CMA - 02/18/2015 4:48 PM CDT Yamileth Sheikh's goals for this visit include: Chief Complaint Patient presents with ??? RECHECK mixed incontinence She requests these members of her care team be copied on today's visit information: Mehreen Johnston PCP: Mehreen Johnston Referring Provider: No referring provider defined for this encounter. Chief Complaint Patient presents with ??? RECHECK mixed incontinence Initial BP 144/78 Pulse 65 Estimated body mass index is 27.97 kg/(m^2) as calculated from the following: Height as of 01/04/15: 1.702 m (5' 7). Weight as of 01/07/15: 81.012 kg (178 lb 9.6 oz). BP completed using cuff size: regular Do you need any medication refills at today's visit? No documented in this encounter Plan of Treatment Upcoming Encounters Date Type Specialty Care Team Description 09/10/2022 Office Visit Internal Medicine LogeaisMargot MD [address] [id number] (Wo rk) documented as of this encounter Procedures Procedure Name Priority Date/Time Associated Diagnosis Comme nts HC MEASURE POST-VOID Routine 02/18/2015 5:03 PM Mixed incontin ence RESIDUAL CDT urge and stress URINE/BLADDER (male)(female) CAPACITY, US Urgency of urina tion NON-IMAGING Urinary retention UA MACROSCOPIC WITH Routine 02/18/2015 4:50 PM Mixed incontine nce Results for this REFLEX TO MICRO AND CDT urge and stress proce dure are in CULTURE (male)(female) the results Urgency of urina tion section. Urinary retention documented in this encounter Results UA reflex to Microscopic and Culture (02/18/2015 4:50 PM CDT) [facility] Method Time Signature Color Urine Yellow [facility] Appearance Urine Clear [facility] Glucose Urine Negative NEG mg/dL [facility] Bilirubin Urine Negative NEG [facility] Ketones Urine Negative NEG mg/dL [facility] Specific [place] 1.015 1.003 - [place] Urine 1.035 [facility] Blood Urine Negative NEG [facility] pH Urine 6.0 5.0 - 7.0 [place] pH [facility] Protein Albumin Negative NEG mg/dL [place] Urine [facility] Urobilinogen Normal 0.0 - 2.0 [place] mg/dL mg/dL [facility] Nitrite Urine Negative NEG [facility] Leukocyte Negative NEG [place] Esterase Urine [facility] Source Midstream [place] Urine [facility] Specimen Anatomical Collection Method Collection Time Receive d Time (Source) Location / / Volume Laterality Urine specimen 02/18/2015 4:50 PM 015 5:05 (specimen) CDT PM CDT Carlota Landeros MD LAB - URINE ORDERABLES Performing Organization Address City/State/ZIP Code Phon e Number [facility] [address] [place] [address] documented in this encounter Visit Diagnoses Diagnosis Mixed incontinence urge and stress (male )(female) - Primary Urgency of urination Urinary retention Retention of urine, unspecified documented in this encounter Care Teams Community Assistant Relationship Specialty Start Date End Date Mehreen Johnston MD PhD PCP - General Family Practice 11/27/13 03/25/15 documented as of this encounter
--- OUTSIDE RECORDS SUMMARY | 2022-07-30 19:29 | XMS_ITS | Encounter Summary ---
:1945 Author Organization [facility] Address [address] [place] [address]. [place] [address] Care Team Providers Name Role Phone Balbir Simpson MD Primary Care Provider [phone] Reason for Visit Auth/Cert - Closed Specialty Diagnoses / Procedures Referred By Contact Refer red To Contact Surgery Diagnoses Stress Incontinence Ur Periop Procedures CYSTOSCOPY, SLING TRANSVAGINAL [address] [place] [address] Phone: Fax: Referral ID Status Reason Start Date Expiration Date Visits Requ ested Visits Authorized [id number] Closed 1 1 Encounter Details Date Type Department Care Team Description 03/26/2015 Anesthesia Event [facility] Merrill Smith MD [address] [place] [address] PeriOp Services Eleni Benson APRN CERTIFIED MEDICAL RECORDS CODER CERTIFIED ANESTHESIA CARE [address] [place] [id number] [address] [place] [address] Anesthesia Record Procedure Summary Procedure Name Responsible Anesthesia Start Anesthesia Stop Anesthesiologist Time Time Midurethral Sling and Merrill Smith MD 03/26/15 0914 03/26/15 1000 Cystoscopy (Vagina) Events Date Time Event Comment 03/26/2015 0914 An Start 0914 An Start Data 0932 Quick Note local 0950 an stop data 1000 An Stop Electronically s igned by Eleni Benson CRNA on March 26, 2015 10 :00 AM Name Total midazolam 1mg/mL 4 mg fentanyl 50mcg/mL 125 mcg ondansetron 2mg/mL 4 mg ceFAZolin (ANCEF) 1 g vial to attach to NS 100 ml bag for ADULT or 50 ml bag 2 g for PEDS dexamethasone 4mg/mL 4 mg LR 700 mL Agents Name O2 O2 Delivery Device O2 Auxiliary Blood No blood administrations on file. Lines, Drains, and Airways Type Details Placement Removal Peripheral IV 03/26/15; 0849; 20 G; 03/26/15 0849 by 03/26/15 1243 by Left; Hand; Juanis Palafox RN [place], Chlorhexidine; None; MODESTA Acuña Tolerated poorly Incision/Surgical Site 03/26/15; 0932; 03/26/15 0932 by 03/26/15 0944 by Vagina; 03/26/15; 0944 Nubia Rodrigues RN Pierce, Rachel S, RN documented in this encounter Social History Tobacco Use Types Packs/Day Years Used Date Smoking Tobacco: Never Smokeless Tobacco: Never Alcohol Use Standard Drinks/Week Comments Yes 0 (1 standard drink = 0.6 oz pure alcoho l) wine few times/wk Sex Assigned at Date Recorded Female 12/20/2018 4:10 PM CDT documented as of this encounter OR Notes Anesthesia Postprocedure Evaluation - Merrill Smith MD - 03/26/2015 11:20 AM CDT Patient: Yamileth Greene Kori CYSTOSCOPY, SLING TRANSVAGINAL (N/A Vagina) Additional InformationProcedure(s): Midurethral Sling and Cystoscopy Diagnosis:Stress Incontinence Diagnosis Additional Information: No value filed. Anesthesia Type: MAC Note: Anesthesia Post Evaluation Patient location during evaluation: PACU Patient participation: Able to fully participate in evaluation Level of consciousness: awake and alert Pain management: adequate Airway patency: patent Anesthetic complications: no Cardiovascular status: acceptable Respiratory status: acceptable Hydration status: acceptable PONV: none Last vitals: Filed Vitals: 03/26/15 0738 03/26/15 1000 BP: 142/91 123/73 Pulse: 73 Temp: 36.8 ??C (98.2 ??F) 36.4 ??C (97.6 ??F) Resp: 18 16 SpO2: 98% 95% Electronically Signed By: Merrill Smith MD, MD March 26, 2015 11:20 AM Anesthesia Postprocedure Evaluation - Merrill Smith MD - 03/26/2015 10:24 AM CDT Patient: Yamileth Sheikh CYSTOSCOPY, SLING TRANSVAGINAL (N/A Vagina) Additional InformationProcedure(s): Midurethral Sling and Cystoscopy Diagnosis:Stress Incontinence Diagnosis Additional Information: No value filed. Anesthesia Type: MAC Note: Anesthesia Post Evaluation Patient location during evaluation: PACU Patient participation: Able to fully participate in evaluation Level of consciousness: awake and alert Pain management: adequate Airway patency: patent Anesthetic complications: no Cardiovascular status: acceptable Respiratory status: acceptable Hydration status: acceptable PONV: none Last vitals: Filed Vitals: 03/26/15 0738 03/26/15 1000 BP: 142/91 123/73 Pulse: 73 Temp: 36.8 ??C (98.2 ??F) 36.4 ??C (97.6 ??F) Resp: 18 16 SpO2: 98% 95% Electronically Signed By: Merrill Smith MD, March 26, 2015 10:24 AM Anesthesia Preprocedure Evaluation - Merrill Smith MD - 03/26/2015 8:51 AM CDT Anesthesia Evaluation history and physical reviewed - Dr. Vang. Pt has had prior anesthetic. Type: General and MAC History of anesthetic complications PONV and Other (severe vertigo for 1 day after surgery) ROS/MED HX Pulmonary: - neg pulmonary ROS (-) tobacco use, sleep apnea and CHELSEA risk factors Neurologic: - neg neurologic ROS Cardiovascular: (+) hypertension range: 130s/80s,. : . . . :. . Previous cardiac testing date:results:date: results:ECG reviewed date: results: date: results: (-) ACUÑA and orthopnea/PND METS/Exercise Tolerance: Comment: Walks 3 miles daily. 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 (+) arthritis, - GI/Hepatic: - neg GI/hepatic ROS Renal: - ROS Renal section negative (-) renal disease Endo: - neg endo ROS Psychiatric: - neg psychiatric ROS Infectious Disease: - neg infectious disease ROS Other: - neg other ROS Physical Exam Normal systems: cardiovascular, pulmonary and dental Airway Mallampati: III TM distance: >3 FB Neck ROM: full Dental (+) caps Comment: Front teeth veneers. Cardiovascular Pulmonary breath sounds clear to auscultation PAC Discussion and Assessment ASA Classification: 2 Anesthetic techniques and relevant risks discussed: MAC with GA as backup Invasive monitoring and risk discussed: Yes Types: Possibility and Risk of blood transfusion discussed: No NPO instructions given: NPO after midnight Additional anesthetic preparation and risks discussed: Needs early admission to pre-op area: Other: PAC Resident/CLUB DIRECTOR Anesthesia Assessment: 65 y/o referred to discuss anesthesia options as patient has had a previous reaction to anesthesia. She reports significant nausea, vomiting, vertigo following any general anesthesia she has had. She had a colonoscopy in 2009 where she had versed, fentanyl, and zofran and reports improvement of her sym ptoms, but did have mild nausea. Recommendation - patient scheduled for MAC. Will use versed, propofol, fentanyl, zofran. Use scopolamine patch preoperatively. If OK with surgical team, use decadron. Discussed with Dr. Jesus, he examined pt. I spent 30 minutes with patient face to face, assessing, examining, and coordinating care. Mid-Level Provider/Resident: Date: Time: PAC Attending Anesthesiologist Anesthesia Assessment: Anesthesiologist: Date: Time: Pass/Fail: Disposition: Anesthesia Plan ASA Score: 3 . Plan for MAC - Maintenance will be Other. . No Propofol Fentanyl/Versed Only Decadron/Zofran History & Physical Review History and physical reviewed and following examination; no interval change. . Anesthesia Evaluation history and physical reviewed - Dr. Vang. Pt has had prior anesthetic. Type: General and MAC History of anesthetic complications PONV and Other (severe vertigo for 1 day after surgery) ROS/MED HX ENT/Pulmonary: - neg pulmonary ROS (-) tobacco use, sleep apnea and CHELSEA risk factors Neurologic: - neg neurologic ROS Cardiovascular: (+) hypertension range: 130s/80s,. : . . . :. . Previous cardiac testing date:results:date: results:ECG reviewed date: results: date: results: (-) ACUÑA and orthopnea/PND METS/Exercise Tolerance: Comment: Walks 3 miles daily. 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 (+) arthritis, - GI/Hepatic: - neg GI/hepatic ROS Renal/Genitourinary: - ROS Renal section negative (-) renal disease Endo: - neg endo ROS Psychiatric: - neg psychiatric ROS Infectious Disease: - neg infectious disease ROS Malignancy: Other: - neg other ROS Anesthesia Plan ASA Score: 3 . Plan for MAC - Maintenance will be Other. . No Propofol Fentanyl/Versed Only Decadron/Zofran History & Physical Review History and physical reviewed and following examination; no interval change. documented in this encounter Miscellaneous Notes Anesthesia Care Transfer Note - Eleni Benson APRN CRNA - 03/26/2015 10:00 AM CDT Patient: Yamileth Sheikh CYSTOSCOPY, SLING TRANSVAGINAL (N/A Vagina) Additional Information@[email or web address]@ Diagnosis: Stress Incontinence Diagnosis Additional Information: No value filed. Anesthesia Type: MAC Note: Patient transferred to:Phase II Comments: Stable denies pain/nausea Electronically Signed By: Eleni Benson CRNA, APRN CRNA March 26, 2015 10:00 AM documented in this encounter Plan of Treatment Upcoming Encounters Date Type Specialty Care Team Description 09/10/2022 Office Visit Internal Medicine LogMargot sadler MD [address] [place] [address] [id number] (Wo rk) documented as of this encounter Visit Diagnoses Not on filedocumented in this encounter Administered Medications Inactive Administered Medications - up to 3 most recent administrations Medication Order MAR Action Action Date Dose Rate Site ceFAZolin (ANCEF) 1 g vial to attach Given 03/26/2015 9:15 AM CD T 2 g to NS 100 ml bag for ADULT or 50 ml bag for PEDS Routine, 1 g, Intravenous, SEE ADMIN INSTRUCTIONS, Starting on Wed03/26/15 at 0743, Intra-Op Dose.?Give every 2 hours while patient in surgery, starting 2 hours after pre-op dose.?DO NOT GIVE intra-op dose if CrCl less than 10 mL/min (on dialysis).?If CrCL less than 50 mL/min, double the time interval between doses., Indications: Perioperative Pharmacoprophylaxis, Pre-procedure dexamethasone (DECADRON) injection Given 03/26/2015 9:28 AM CDT 4 mg PRN, Administer over 1-4 Minutes, Starting on Wed03/26/15 at 0928, Anesthesia Intra-op fentaNYL (SUBLIMAZE) injection Given 03/26/2015 9:30 AM CDT 50 mcg Intravenous, PRN, moderate to severe pain, Starting on Wed03/26/15 at 0917, Anesthesia Intra-op Given 03/26/2015 9:17 AM CDT 50 mcg Given 03/26/2015 9:14 AM CDT 25 mcg lactated ringers infusion New Bag 03/26/2015 8:49 AM CDT Intravenous, CONTINUOUS PRN, Anesthesia Intra-op, Starting on Wed03/26/15 at 0849, Until Wed03/26/15 at 1000 midazolam (VERSED) injection Given 03/26/2015 9:21 AM CDT 2 mg Intravenous, PRN, anxiety, Starting on Wed03/26/15 at 0915, Anesthesia Intra-op Given 03/26/2015 9:15 AM CDT 2 mg ondansetron (ZOFRAN) injection Given 03/26/2015 9:33 AM CDT 4 mg Intravenous, PRN, nausea, vomiting, Administer over 2-5 Minutes, Starting on Wed03/26/15 at 0933, Anesthesia Intra-op documented in this encounter Care Teams Resume Writer Relationship Specialty Start Date End Date Balbir Simpson MD PCP - General Internal Medicine 03/26/15 04/12/16 documented as of this encounter
--- OUTSIDE RECORDS SUMMARY | 2022-07-30 19:29 | XMS_ITS | Encounter Summary ---
:1945 Author Organization [facility] Address [address] [place] [address]. [place] [address] Care Team Providers Name Role Phone Lisseth Vang MD Primary Care Provider Carlota Landeros MD Unavailable Luz Maria Kelly MD Unavailable Lisseth Vang MD Unavailable Reason for Visit Reason Comments Vaginal Problem pt states having vaginal dry ness, itching, thinks it is a yeast infection Encounter Details Date Type Department Care Team Description 04/13/2016 Office Visit Health Primary Care Luz Maria Kelly, Atrophic vaginitis (Primary Dx); Clinic MD Need for hepatitis C screening test; [address] [place] [address] Screen for colon cancer; [address] Seasonal allergies; [place], [place] Chronic r hinitis; [phone] Vaginal dryness; [phone] (Wo rk) Recurrent cold sores; Vitamin D deficiency; Vaginal itching Social History Tobacco Use Types Packs/Day Years Used Date Smoking Tobacco: Never Smokeless Tobacco: Never Alcohol Use Standard Drinks/Week Comments Yes 0 (1 standard drink = 0.6 oz pure alcoho l) wine few times/wk Sex Assigned at Date Recorded Female 12/20/2018 4:10 PM CDT documented as of this encounter Last Filed Vital Signs Vital Sign Reading Time Taken Comments Blood Pressure 115/77 04/13/2016 12:13 PM CDT Pulse 80 04/13/2016 12:13 PM CDT Temperature - - Respiratory Rate 18 04/13/2016 12:13 PM CDT Oxygen Saturation - - Inhaled Oxygen Concentration - - Weight 81.4 kg (179 lb 8 oz) 04/13/2016 12:13 PM CDT Height 168.9 cm (5' 6.5) 04/13/2016 12:13 PM CDT Body Mass Index 28.54 04/13/2016 12:13 PM CDT documented in this encounter Patient Instructions Patient InstructionsLisa Perales - 04/13/2016 12:13 PM CDT Primary Care Center Medication Refill Request Information: * Please contact your pharmacy regarding ANY request for medication refills. [facility] Prescription Fax = [phone] * Please allow 3 business days for [...] them. documented in this encounter Progress Notes Luz Maria Kelly MD - 04/13/2016 12:22 PM CDT Images from the original note were not included. PRIMARY [facility]ARE CENTER SUBJECTIVE: Yamileth Sheikh is a 70 year old female with pmh of atrophic vaginiis, h/o mixed urinary incontinence s/p sling procedure who comes in for vaginal itching/irritation. Sxs are ongoing x approx 2 Weeks. She was on abx for dental infeciton in the past several mos and wonders if she could have a yeast i nfection. No fevers. Scant white d/c present. Itching noted of the ext genitalia. Not sexually active. No fevers. Has had this before. Notes h/o atrophic vaginitsi and uses a ring. She also used to useext cream to vulva but stopped several weeks ago. Medications and allergies reviewed by me today. Review Of Systems No pelvic pain. No bleeding. No urinary sxs. OBJECTIVE: BP 115/77 mmHg Pulse 80 Resp 18 Ht 1.689 m (5' 6.5) Wt 81.421 kg (179 lb 8 oz) BMI 28.54 kg/m2 Wt Readings from Last 1 Encounters: 04/13/16 81.421 kg (179 lb 8 oz) Constitutional: no distress, comfortable, pleasant PELVIC EXAM: EG negative for lesion or foreign body. Vulva appears normal. Vaginal mucosa with loss of rugae and shiny. Very scant normal appearing vaginal d/c. Cervix is nl without lesions. Bimanual exam reveals firm, mobile uterus. Adenexa are mobile and non-tender bilaterally. Uterus firm. No masses. ASSESSMENT/PLAN: Pt is a 70 year old female here for atrophic vaginitis. Yamileth was seen today for vaginal problem. Diagnoses and all orders for this visit: Need for hepatitis C screening test Other orders - Hepatitis C Screen Reflex to HCV RNA Quant and Genotype Vaginal itching, dryness: Cont with estradiol ring, but adding topical estrogen cream for ext genitalia. Wet prep sent but suspect will be normal. Will cotnact pt with results. Luz Maria Kelly MD documented in this encounter Nursing Notes Drea Mcknight LPN - 04/13/2016 1:43 PM CDT WET prep hand delivered to lab.Drea Mcknight LPN 1:44 PM on 04/13/2016 Lisa Perales - 04/13/2016 12:13 PM CDT Chief Complaint Patient presents with ??? Vaginal Problem pt states having vaginal dryness, itching, thinks it is a yeast infection Lisa Perales CMA at 12:13 PM on 04/13/2016. documented in this encounter Plan of Treatment Upcoming Encounters Date Type Specialty Care Team Description 09/10/2022 Office Visit Internal Medicine LogeaisMargot MD [address] [place] [address] [phone] (Wo rk) documented as of this encounter Procedures Procedure Name Priority Date/Time Associated Comments Diagnosis HEPATITIS C SCREEN Routine 04/13/2016 1:13 PM Need for hepatit is Results for this REFLEX TO HCV RNA CDT C screening test proced ure are in QUANT AND GENOTYPE the resul ts section. WET PREPARATION Routine 04/13/2016 12:30 Vaginal itching Resul ts for this PM CDT procedure are i n the results section. documented in this encounter Results Hepatitis C Screen Reflex to HCV RNA Quant and Genotype (04/13/2016 1:13 PM CDT) Component Value Ref Test Analysis Performed At [facility] gist Range Method Time Signature Hepatitis C Nonreactive NR [facility] Antibody Assay performance character istics have not been established for newborns, [place] MEDICAL infants, and children [facility] Specimen Anatomical Collection Method Collection Time Receive d Time (Source) Location / / Volume Laterality Blood specimen 04/13/2016 1:13 PM 016 1:16 (specimen) CDT PM CDT Luz Maria Kelly MD LAB - BLOOD ORDERABLES Performing Organization Address City/State/ZIP Code Phon e Number [facility] [address] [place], [place] [id number] [place] [address] Wet prep (04/13/2016 12:30 PM CDT) Component Value Ref Test Analysis Performed At [facility] Range Method Time Signature Specimen Vagina [facility] Description [facility] Wet Prep No Trichomonas seen [facility] clue cells seen [place] No yeast seen [facility] No PMNs seen [facility] Micro Report FINAL [facility] Status 04/13/2016 [facility] Specimen Anatomical Collection Method Collection Time Receive d Time (Source) Location / / Volume Laterality 04/13/2016 12:30 04/13/2016 PM CDT 12:48 PM CDT Luz Maria Kelly MD LAB - MICRO GENERAL ORDERABL ES Performing Organization Address City/State/ZIP Code Phon e Number [facility] [address] [place] [address] [facility] documented in this encounter Visit Diagnoses Diagnosis Atrophic vaginitis - Primary Postmenopausal atrophic vaginitis Need for hepatitis C screening test Special screening examination for other specified viral diseases Screen for colon cancer Special screening for malignant neoplasm s, colon Seasonal allergies Allergic rhinitis, cause unspecified Chronic rhinitis Vaginal dryness Other specified symptom associated with female genital organs Recurrent cold sores Herpes simplex without mention of compli cation Vitamin D deficiency Unspecified vitamin D deficiency Vaginal itching Pruritus of genital organs documented in this encounter Care Teams Casing Runner Relationship Specialty Start Date End Date Lisseth Vang MD PCP - General 04/13/16 11/14/[address] [place] [address] Carlota Landeros MD MD Urology 04/10/[address] [place] [address] Luz Maria Kelly MD MD Internal Medicine 03/27/16 02/22/17 Lisseth Vang MD PCP Family Practice 03/30/16 11/14/[address] [place], [place] [id number] documented as of this encounter
--- OUTSIDE RECORDS SUMMARY | 2022-07-30 19:29 | XMS_ITS | Encounter Summary ---
:1945 Author Organization [facility] Address [address] [place] [address]. [place] [address] Care Team Providers Name Role Phone Mehreen Johnston MD PhD Primary Care Provider [phone] Encounter Details Date Type Department Care Team Description 01/18/2015 Orders Only [facility] Mehreen Johnston MD [facility] Laboratory PhD [address] [facility] [address] [place] [address] [place], [place] [id number] (Wo rk) Social History Tobacco Use Types [...] Visit Internal Medicine LogeaMargot man MD [address] [id number] (Wo rk) documented as of this encounter Procedures Procedure Name Priority Date/Time Associated Diagnosis Comme nts ROUTINE UA WITH Routine 01/18/2015 7:00 AM Proteinuria Result s for this MICROSCOPIC REFLEX CDT procedure are in TO CULTURE the results section. documented in this encounter Results (ABNORMAL) Routine UA with Micro Reflex to Culture (01/18/2015 7:00 AM CDT) [facility] Method Time Signature Color Urine Light Yellow [facility] Appearance Urine Clear [facility] Glucose Urine Negative NEG mg/dL [facility] Bilirubin Urine Negative NEG [facility] Ketones Urine Negative NEG mg/dL [facility] Specific [place] 1.011 1.003 - [facility] Urine 1.035 [facility] Blood Urine Negative NEG [facility] pH Urine 5.5 5.0 - 7.0 [facility] pH [facility] Protein Albumin Negative NEG mg/dL [facility] Urine [facility] Urobilinogen Normal 0.0 - 2.0 [place] mg/dL mg/dL [facility] Nitrite Urine Negative NEG [facility] Leukocyte Negative NEG [facility] Esterase Urine [facility] Source Midstream [facility] Urine [facility] WBC Urine <1 0 - 2 [facility] /HPF [facility] RBC Urine 1 0 - 2 [facility] /HPF [facility] Bacteria Urine Few (A) NEG /HPF [facility] Squamous 1 0 - 1 [facility] Epithelial /HPF /HPF [facility] Mucous Urine Present (A) NEG /LPF [facility] Specimen Anatomical Collection Method Collection Time Receive d Time (Source) Location / / Volume Laterality Urine specimen 01/18/2015 7:00 AM 015 7:14 (specimen) CDT AM CDT Mehreen Johnston MD PhD LAB - URINE ORDERABLES Performing Organization Address City/State/ZIP Code Phon e Number [facility] [address] documented in this encounter Visit Diagnoses Diagnosis Proteinuria documented in this encounter Care Teams Field Agent Relationship Specialty Start Date End Date Mehreen Johnston MD PhD PCP - General Family Practice 11/27/13 03/25/15 documented as of this encounter
--- OUTSIDE RECORDS SUMMARY | 2022-07-30 19:29 | XMS_ITS | Encounter Summary ---
:1945 Author Organization [facility] Address [address] [place] [address]. [place] [address] Care Team Providers Name Role Phone Balbir Simpson MD Primary Care Provider Carlota Landeros MD Unavailable Balbir Simpson MD Unavailable [phone] Encounter Details Date Type Department Care Team Description 05/08/2015 Orders Only [facility] AND Carlota Landeros Vag inathea candidiasis [facility] ([facility] [address] [place], [place] [address] [address] [address] [place] [address] [facility] [address] [place] [id number] Social History Tobacco Use Types Packs/Day Years [...] Visit Internal Medicine Margot Branham MD [address] [facility] [address] [place], [place] [address] (Wo rk) documented as of this encounter Visit Diagnoses Diagnosis Vaginal candidiasis - Primary Candidiasis of vulva and vagina documented in this encounter Care Teams Vegetable Ii Farmworker Relationship Specialty Start Date End Date Balbir Simpson, PCP - General Internal Medicine 03/26/15 04/12/16 Carlota Landeros MD MD Urology 04/10/[address] [place] [address] Balbir Simpson, Referring Physician Internal Medicine 04/0303/29/16 documented as of this encounter
--- OUTSIDE RECORDS SUMMARY | 2022-07-30 19:29 | XMS_ITS | Encounter Summary ---
:1945 Author Organization [facility] Address [address] [place] [address]. [place] [address] Care Team Providers Name Role Phone Balbir Simpson MD Primary Care Provider [phone] Carlota Landeros MD Unavailable Balbir Simpson MD Unavailable [phone] Reason for Visit Reason Comments Mantoux Results Reading Patient here for mantoux [place] Encounter Details Date Type Department Care Team Description 01/13/2016 [facility] Primary Care Nurse, [facility] [place]anto ux Results Health/Nurse Clinic Reading (Patient here Visit [address] [place] [address] for ... 4th [place] [address] Social History Tobacco Use Types Packs/Day Years Used Date Smoking Tobacco: Never Smokeless Tobacco: Never Alcohol Use Standard Drinks/Week Comments Yes 0 (1 standard drink = 0.6 oz pure alcoho l) wine few times/wk Sex Assigned at Date Recorded Female 12/20/2018 4:10 PM CDT documented as of this encounter Nursing Notes Barbara Potter LPN - 01/13/2016 8:08 AM CDT Patient here for mantoux reading. Result was negative. See Barbara Potter LPN at 8:09 AM on 01/13/2016. documented in this encounter Plan of Treatment Upcoming Encounters Date Type Specialty Care Team Description 09/10/2022 Office Visit Internal Medicine LogeaMargot man MD [address] [address] (Wo rk) documented as of this encounter Visit Diagnoses Diagnosis Screening examination for pulmonary tube rculosis - Primary documented in this encounter Care Teams Digital Technician Relationship Specialty Start Date End Date Balbir Simpson, PCP - General Internal Medicine 03/26/15 04/12/16 Carlota Landeros MD MD Urology 04/10/[address] [place], [place] [address] Balbir Simpson, Referring Physician Internal Medicine 04/0303/29/16 documented as of this encounter
--- OUTSIDE RECORDS SUMMARY | 2022-07-30 19:29 | XMS_ITS | Encounter Summary ---
:1945 Author Organization [facility] Address [address] [place] [address]. [place] [address] Care Team Providers Name Role Phone Balbir Simpson MD Primary Care Provider Carlota Landeros MD Unavailable Luz Maria Kelly MD Unavailable Lisseth Vang MD Unavailable Reason for Visit Reason Onset Date Comments Pre Visit Planning - Done 04/02/2016 Encounter Details Date Type Department Care Team Description 04/02/2016 Telephone [facility] Urology and Carlota Landeros P re Visit Planning - Inst for Prostate and MD Done [facility] [address] [place] [address] [phone] Social History Tobacco Use Types Packs/Day Years Used Date Smoking Tobacco: Never Smokeless Tobacco: Never Alcohol Use Standard Drinks/Week Comments Yes 0 (1 standard drink = 0.6 oz pure alcoho l) wine few times/wk Sex Assigned at Date Recorded Female 12/20/2018 4:10 PM CDT documented as of this encounter Miscellaneous Notes Telephone Encounter - Nohemy Carpenter LPN - 04/02/2016 10:22 AM CDT Patient coming in for follow up returning urine leakage. Patient chart reviewed, no need for call, all records available and ready for appointment. documented in this encounter Plan of Treatment Upcoming Encounters Date Type Specialty Care Team Description 09/10/2022 Office Visit Internal Medicine Margot Branham MD [address] [id number] (Wo rk) documented as of this encounter Visit Diagnoses Not on filedocumented in this encounter Care Teams Contract Negotiator Relationship Specialty Start Date End Date Balbir Simpson MD PCP - General Internal Medicine 03/26/15 04/12/16 Carlota Landeros MD MD Urology 04/10/[address] [place], [place] [id number] Luz Maria Kelly MD MD Internal Medicine 03/27/16 02/22/17 Lisseth Vang MD PCP Family Practice 03/30/16 11/14/[address] [place] [address] documented as of this encounter
--- OUTSIDE RECORDS SUMMARY | 2022-07-30 19:29 | XMS_ITS | Encounter Summary ---
:1945 Author Organization [facility] Address [address] [place] [address]. 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 MACHINE CUT GLASS Dx) [facility] 4th Floor, Clinic [address] [place] [phone] Social History Tobacco Use Types Packs/Day Years [...] Office Visit Internal Medicine LogeaMargot man MD [address] [place] [id number] (Wo rk) documented as of this encounter Visit Diagnoses Diagnosis Hypertension - Primary Unspecified essential hypertension documented in this encounter Care Teams Family Support Specialist Relationship Specialty Start Date End Date Mehreen Johnston MD PhD PCP - General Family Practice 11/27/13 03/25/15 documented as of this encounter
--- OUTSIDE RECORDS SUMMARY | 2022-07-30 19:30 | XMS_ITS | Encounter Summary ---
:1945 Author Organization [facility] Address [address] [place] [address]. [place] [address] Care Team Providers Name Role Phone Mehreen Johnston MD PhD Primary Care Provider Reason for Visit Reason Comments Urgent Care Pharyngitis c/o sore throat,fever,cough and nasal congestion for 4 days Encounter Details Date Type Department Care Team Description 09/23/2014 Office Visit [facility] Kristian Collazo M D Acute sinusitis treated with antibiotics in the past 60 days (Primary Dx); [facility] [place] [address]; [facility] Acute bronchitis with coexisting conditi on requiring prophylactic treatment; [address] [place] [address] [place], [place] [phone] (Work) [phone] Social History Tobacco Use Types Packs/Day Years Used Date Smoking Tobacco: Never Smokeless Tobacco: Never Alcohol Use Standard Drinks/Week Comments Yes 0 (1 standard drink = 0.6 oz pure alcoho l) wine few times/wk Sex Assigned at Date Recorded Female 12/20/2018 4:10 PM CDT documented as of this encounter Last Filed Vital Signs Vital Sign Reading Time Taken Comments Blood Pressure 141/72 09/23/2014 11:25 AM STOCK HANDLER Pulse 83 09/23/2014 11:25 AM STOCK HANDLER Temperature 37.5 ??C (99.5 ??F) 09/23/2014 11:25 AM STOCK HANDLER Respiratory Rate - - Oxygen Saturation 97% 09/23/2014 11:25 AM STOCK HANDLER Inhaled Oxygen Concentration - - Weight 81.6 kg (180 lb) 09/23/2014 11:25 AM STOCK HANDLER Height 170.2 cm (5' 7) 09/23/2014 11:25 AM STOCK HANDLER Body Mass Index 28.19 09/23/2014 11:25 AM STOCK HANDLER documented in this encounter Patient Instructions Patient InstructionsKristian Collazo MD - 09/23/2014 12:25 PM CST Images from the original note were not included. Okay to take ibuprofen 200 mg - 4 tablets (800 mg) every 8 hours as needed. Okay to take tylenol 500 mg - 2 tablets (1000 mg) every 6-8 hours as needed, do not exceed 3000 mg in 24 hours. Take full course of antibiotic. Okay to try tessalon perles for cough, albuterol inhaler to help with bronchitis and cough. Bronchitis (Adult: Abx Tx) BRONCHITIS is an infection of the air passages (???bronchial tubes?? ). It often occurs during the common cold. Symptoms include cough with mucus (phlegm) and low-grade fever. Bronchitis usually lasts 7-14 days. Mild cases can be treated with simple home remedies. More severe infection is treated withan antibiotic. Home Care: ?? If symptoms are severe, rest at home for the first 2-3 days. When you resume activity, don't let yourself get too tired. ?? Do not smoke. Avoid being exposed to the smoke of others. ?? You may use acetaminophen (Tylenol) or ibuprofen (Motrin, Advil) to control fever or pain, unlessanother medicine was prescribed for this. [NOTE: If you have chronic liver or kidney disease or everhad a stomach ulcer or GI bleeding, talk with your doctor before using these medicines.] ?? Your appetite may be poor, so a light diet is fine. Avoid dehydration by drinking 6-8 glasses of fluids per day (water, soft, drinks, juices, tea, soup, etc.). Extra fluids will help loosen secretions in the lungs. ?? Mgnu-utw-eapxhtq cough medicines that contain ???dextromethorphan?? (such as Robitussin DM) and decongestants (Actifed or Sudafed) may help relieve cough and congestion. [NOTE: Do not use decongestants if you have high blood pressure.] ?? Finish all antibiotic medicine, even if you are feeling better after only a few days. Follow Up with your doctor or as directed if you don???t start to feel better after three days. [NOTE: If you are age 65 or older, or if you have chronic asthma or COPD, we recommend a PNEUMOCOCCAL VACCINATION every five years and a yearly INFLUENZAVACCINATION (FLU-SHOT) every . Ask your doctor about this. If you had an X-ray, a radiologist will review it. You will be notified of any new fi ndings that may affect your care.] Get Prompt Medical Attention if any of the following occur: ?? Fever over 100.4??F (38.0??C) for more than three days ?? Trouble breathing, wheezing or pain with breathing ?? Coughing up blood or increased amounts of colored sputum ?? Weakness, drowsiness, headache, facial pain, ear pain or a stiff neck ?? [id number] [place] [address]. All rights reserved. This information is not intended as a substitute for professional medical care. Always follow your healthcare professional's instructions. Sinusitis [Abx Tx] The sinuses are air-filled spaces within the bones of the face. They connect to the inside of the nose. Sinusitis is an inflammation of the tissue lining the sinus cavity. Sinus inflammation can occur during a cold or hay-fever (allergies to pollens and other particles in the air) and cause symptoms of sinus congestion and fullness. A sinus infection causes fever, headache and facial pain. There is usually green or yellow drainage from the nose or into the back of the throat (post-nasal drip). Antibiotics are prescribed to treat this condition. Home Care: ?? Drink plenty of water, hot tea, and other liquids to stay well hydrated. This thins the mucus andpromotes sinus drainage. ?? Apply heat to the painful areas of the face. Use a towel soaked in hot water. Or, slat basket maker helper machine the shower and direct the hot spray onto your face. This is a good way to inhale warm water vapor and get heat on your face at the same time. (Cover your mouth and nose with your hands so you can still breathe as you do this.) ?? Use a vaporizer with products such as Networkub (contains menthol) at night. Suck on peppermint, menthol or eucalyptus hard candies during the day. ?? An expectorant containing guaifenesin (such as Robitussin), helps to thin the mucus and promote drainage from the sinuses. ?? Yzdr-nup-qdyvrbl decongestants may be used unless a similar medicine was prescribed. Nasal sprayswork the fastest. Use one that contains phenylephrine (Freddy-synephrine, Sinex and others) or oxymetazoline (Afrin). First blow the nose gently to remove mucus, then apply the drops. Do not use these medicines more often than directed on the label or for more than three days or symptoms may worsen. You may also use tablets containing pseudoephedrine (Sudafed). Many sinus remedies combine ingredients, which may increase side effects. Read the labels or ask the pharmacist for help. NOTE: Persons with high blood pressure should not use decongestants. They can raise blood pressure. ?? Antihistamines are useful if allergies are a cause of your sinusitis. The mildest one is chlorpheniramine (available without a prescription). The dose for adults is 8-12mg three times a day. [NOTE: Do not use chlorpheniramine if you have glaucoma or if you are a man with trouble urinating due to anenlarged prostate.] Claritin (loratidine) is an antihistamine that causes less drowsiness and is a good alternative for daytime use. ?? Do not use nasal rinses or irrigation during an acute sinus infection, unless advised by your doctor. Rinsing may spread the infection to other sinuses. ?? You may use acetaminophen (Tylenol) or ibuprofen (Motrin, Advil) to control pain, unless another pain medicine was prescribed. [ NOTE: If you have chronic liver or kidney disease or ever had a stomach ulcer, talk with your doctor before using these medicines.] (Aspirin should never be used in anyone under 18 years of age who is ill with a fever. It may cause severe liver damage.) ?? Finish the full course, even if you are feeling better after a few days. Follow Up with your doctor or this facility in one week or as instructed by our staff if not improving. Get Prompt Medical Attention if any of the following occur: ?? Facial pain or headache becomes more severe ?? Stiff neck ?? Unusual drowsiness or confusion, or not acting like your normal self ?? Swelling of the forehead or eyelids ?? Vision problems including blurred or double vision ?? Fever of 100.4??F (38??C) or higher, or as directed by your healthcare provider ?? Seizure ?? 359[address]-1637 [facility], [address] [place] [address], [place] [address]. All rights reserved. This information is not intended as a substitute for professional medical care. Always follow your healthcare professional's instructions. K HANDLER documented in this encounter Progress Notes Kristian Collazo MD - 09/23/2014 12:16 PM CST SUBJECTIVE: Yamileth Sheikh is a 69 year old female presenting with a chief complaint of fever, nasal congestion, cough , ear pain bilateral, sore throat, headache, myalgias and malaise. Onset of symptoms was 4 day(s) ago. Course of illness is worsening. Severity moderate Current and Associated symptoms: cough - productive and sore throat Treatment measures tried include Fluids, OTC meds and Rest. Predisposing factors include seasonal allergies and recent sinus infection - given ampicillin about a month ago. Past Medical History Diagnosis Date ??? Rhinitis ??? Fibroid uterus ??? Deviated nasal septum Dr [facility] ??? PONV (postoperative nausea and vomiting) ??? Osteoarthritis right hip ??? Hypertension no medication Current Outpatient Prescriptions Medication Sig Dispense Refill ??? azelastine (ASTELIN) 137 MCG/SPRAY nasal spray [place] 1-2 sprays into both nostrils 2 times daily30 mL 2 ??? benzonatate (TESSALON) 200 MG capsule Take 1 capsule (200 mg) by mouth 3 times daily as needed for cough 21 capsule 0 ??? B Complex Vitamins (VITAMIN-B COMPLEX PO) Take 1 tablet by mouth daily ??? vitamin C (VITAMIN C) 250 MG tablet Take 250 mg by mouth daily ??? LYSINE PO Take 1 capsule by mouth daily ??? estradiol (ESTRING) [address] 1 each vaginally every 3 months 1 each 0 ??? CALCIUM CITRATE-VITAMIN D PO Take 2 tablets by mouth daily Calcium-500 mg Vitamin d-150 iu ??? valACYclovir (VALTREX) 1000 mg tablet Take 1 tablet (1,000 mg) by mouth 3 times daily 20 tablet 1 ??? hydrocortisone-pramoxine (PROCTOFOAM-HC) rectal foam Place 1 applicator rectally 2 times daily 15 g 6 ??? diphenhydrAMINE (BENADRYL) 25 MG tablet Take 25 mg by mouth every 6 hours as needed. ??? Glucosamine-Chondroitin (GLUCOSAMINE CHONDR COMPLEX PO) Take [...] tablet Take 2 tablets by mouth daily. History Substance Use Topics ??? Smoking status: Never Smoker ??? Smokeless tobacco: Never Used ??? Alcohol Use: Yes Comment: wine few times/wk ROS: CONSTITUTIONAL:POSITIVE for fatigue, fever, malaise and myalgias INTEGUMENTARY/SKIN: NEGATIVE for worrisome rashes, moles or lesions ENT/MOUTH: POSITIVE for ear pain bilateral, hoarseness, nasal congestion and sinus pressure RESP:NEGATIVE for significant cough or SOB CV: NEGATIVE for chest pain, palpitations or peripheral edema GI: NEGATIVE for nausea, abdominal pain, heartburn, or change in bowel habits OBJECTIVE :BP 141/72 Pulse 83 Temp(Src) 99.5 ??F (37.5 ??C) (Oral) Ht 5' 7 (1.702 m) Wt 180 lb (81.647 kg) BMI 28.19 kg/m2 SpO2 97% ? No GENERAL APPEARANCE: healthy, alert and no distress EYES: EOMI, PERRL, conjunctiva clear HENT: ear canals and TM's normal. Nose and mouth without ulcers, erythema or lesions. Mild tenderness on maxillary sinuses on percussion NECK: supple, nontender, no lymphadenopathy RESP: lungs clear to auscultation - no rales, rhonchi or wheezes CV: regular rates and rhythm, normal S1 S2, no murmur noted PSYCH: mentation appears normal Results for orders placed in visit on 09/23/14 RAPID STREP SCREEN Result Value Range Specimen Description Throat Rapid Strep A Screen Value: NEGATIVE: No Group A streptococcal antigen detected by immunoassay, await culture report. Micro Report Status FINAL 09/23/2014 ASSESSMENT/PLAN: (461.9) Acute sinusitis treated with antibiotics in the past 60 days (primary encounter diagnosis) Plan: azithromycin (ZITHROMAX) 250 MG tablet (462) Acute pharyngitis Plan: Strep, Rapid Screen, Beta strep group A culture (466.0) Acute bronchitis with coexisting condition requiring prophylactic treatment Plan: azithromycin (ZITHROMAX) 250 MG tablet, albuterol (PROAIR HFA, PROVENTIL HFA, VENTOLIN HFA) 108 (90 BASE) MCG/ACT inhaler (786.2) Cough Plan: benzonatate (TESSALON) 100 MG capsule Reviewed initial lab results and discussed that due to antibiotic use within the last couple of months, constellation of symptoms with bronchitis and sinus infection that will start antibiotic treatment with Zpak. Patient is unable to tolerate codeine so will give RX for tessalon perles to help with cough, RX for albuterol inhaler to help ease up symptoms also. Reassurance given that Zpak will cover for strep infection. Return to clinic if no resolution of symptoms. Kristian Collazo MD September 23, 2014 4:27 PM K HANDLER documented in this encounter Nursing Notes María Elena Torres CMA - 09/23/2014 11:25 AM CST Chief Complaint Patient presents with ??? Urgent Care ??? Pharyngitis c/o sore throat,fever,cough and nasal congestion for 4 days Initial BP 141/72 Pulse 83 Temp(Src) 99.5 ??F (37.5 ??C) (Oral) Ht 5' 7 (1.702 m) Wt 180 lb(81.647 kg) BMI 28.19 kg/m2 SpO2 97% ? No Estimated body mass index is 28.19 kg/(m^2) as calculated from the following: Height as of this encounter: 5' 7 (1.702 m). Weight as of this encounter: 180 lb (81.647 kg). BP completed using cuff size: marti Torres MA K HANDLER documented in this encounter Plan of Treatment Upcoming Encounters Date Type Specialty Care Team Description 09/10/2022 Office Visit Internal Medicine Margot Branham MD [address] [address] (Wo rk) documented as of this encounter Procedures Procedure Name Priority Date/Time Associated Diagnosis Comme nts RAPID STREP SCREEN Routine 09/23/2014 11:30 AM Acute Pharyngit is Results for this THROAT SWAB STOCK HANDLER procedure are i n the results section. BETA HEMOLYTIC Routine 09/23/2014 11:30 AM Acute Pharyngitis R esults for this STREP GROUP A STOCK HANDLER procedure are in CULTURE the results section. documented in this encounter Results Beta strep group A culture (09/23/2014 11:30 AM STOCK HANDLER) Component Value Ref Test Analysis Performed At [facility] Range Method Time Signature Specimen Throat [facility] Culture Micro No Beta MORROW Streptococcus CLINICS [facility] Micro Report FINAL 09/25/2014 [facility] Specimen Anatomical Collection Method Collection Time Receive d Time (Source) Location / / Volume Laterality Specimen from 09/23/2014 11:30 09/23/2014 throat AM STOCK HANDLER 11:42 AM STOCK HANDLER (specimen) Kristian Collazo MD LAB - MICRO GENERAL ORDERABL ES Performing Organization Address City/[facility]/ZIP Code Phon e Number [facility] [address] [place] [address] [place] [address] [place] Strep, Rapid Screen (09/23/2014 11:30 AM STOCK HANDLER) Component Value Ref Test Analysis Performed At [facility] gist Range Method Time Signature Specimen Throat [facility] Rapid Strep A NEGATIVE: No Group A strepto coccal antigen detected by immunoassay, await MORROW Screen culture report. [facility] Micro Report FINAL 09/23/2014 [facility] Specimen Anatomical Collection Method Collection Time Receive d Time (Source) Location / / Volume Laterality Specimen from 09/23/2014 11:30 09/23/2014 throat AM STOCK HANDLER 11:41 AM STOCK HANDLER (specimen) Kristian Collazo MD LAB - MICRO GENERAL ORDERABL ES Performing Organization Address City/[facility]/ZIP Code Phon e Number [place] [address] [place] [address] [place] [address] LEONARDA documented in this encounter Visit Diagnoses Diagnosis Acute sinusitis treated with antibiotics in the past 60 days - Primary Acute sinusitis, unspecified Acute pharyngitis Acute bronchitis with coexisting conditi on requiring prophylactic treatment Acute bronchitis Cough documented in this encounter Care Teams Nuclear Physics Teacher Relationship Specialty Start Date End Date Mehreen Johnston MD PhD PCP - General Family Practice 11/27/13 03/25/15 documented as of this encounter
--- OUTSIDE RECORDS SUMMARY | 2022-07-30 19:30 | XMS_ITS | Encounter Summary ---
:1945 Author Organization [facility] Address [address] [place] [address]. [place] [address] Care Team Providers Name Role Phone Mehreen Johnston MD PhD Primary Care Provider [phone] Reason for Visit Reason Comments Osteoporosis Encounter Details Date Type Department Care Team Description 01/01/2014 Office Visit [facility] Mehreen Johnston a (Primary Dx); [facility] MD Luke PhD Bacterial vaginosis; [address] CARDIOVASCULAR SCREENING; LDL GOAL LESS THAN 130; [employer], [place] Es sential hypertension, benign; BLDG [id number] Postmenopausal bleeding 3RD FLR,[facility] [address] (Work) [facility] [address] [place], [place] [address] (Fax) [phone] Social History Tobacco Use Types Packs/Day Years Used Date Smoking Tobacco: Never Smokeless Tobacco: Never Alcohol Use Standard Drinks/Week Comments Yes 0 (1 standard drink = 0.6 oz pure alcoho l) wine few times/wk Sex Assigned at Date Recorded Female 12/20/2018 4:10 PM CDT documented as of this encounter Last Filed Vital Signs Vital Sign Reading Time Taken Comments Blood Pressure 157/82 01/01/2014 10:28 AM CDT Pulse 74 01/01/2014 10:28 AM CDT Temperature - - Respiratory Rate - - Oxygen Saturation - - Inhaled Oxygen Concentration - - Weight 81.6 kg (180 lb) 01/01/2014 9:40 AM CDT Height 168.9 cm (5' 6.5) 01/01/2014 9:40 AM CDT Body Mass Index 28.62 01/01/2014 9:40 AM CDT documented in this encounter Patient Instructions Patient InstructionsMehreen Johnston MD PhD - 01/01/2014 10:28 AM CDT Blood work today Schedule VFA Return 24 hour urine collection See me 3 months Wait on re starting estring If further vaginal bleeding let me know Follow blood pressure documented in this encounter Progress Notes Mehreen Johnston MD PhD - 01/01/2014 9:51 AM CDT Yamileth is a 68 year old female /post menopausal] [GR1, P1] that presents today for osteoporosis follow up patient was last seen 02/2010 for osteoporosis. She has been on calcium and vitamin D and last had a physical 12/2013. Had BV noted on exam in 12/2013. -She was treated with flagyl, still noting slight discharge - does have odor with urination. Wants to be rechecked. Not sexually active Recent w/u of PM bleeding - had endometrial bx and wants to review results. No further bleeding. Notusing Estring currently Referring Physician: self HPI Have you ever had a bone density test? Yes Where = [facility] When = 2007,2009,11/2013 Spine Tscore = -2.2 L1,L2 Left neck Tscore = -1.1 Total left hip Tscore = -1.6 Right neck Tscore = NA - hip replaced Total Right hip Tscore = NA hip replaced Radius 33% T = -0.8 Have you received any x-ray dye or contrast in the last ten days? No How many servings of dairy products do you consume per day? 2 Type: 1 glass milk and 1/2 c yogurt daily Do you take a multi-vitamin daily? occassionally Do you take a vitamin D supplement? Yes 1000IU 2x/day Do you take a calcium supplement daily? 6 tablets = Vitamin D (as Ergocalciferol) (D2) 400 IU 100% Calcium (as Calcium Citrate) 1000 mg 100% Magnesium (as Magnesium Oxide, Magnesium Citrate) 500 mg 125% - she takes 3 in the AM and 3 in the PM. -I take a separate magnesium citrate capsule for 400 mg. -I take vitamin D3 which comes in 1000 unit capsules, so I have been taking 2 a day for several months. Do you take a supplement containing strontium? No Are you exposed to natural sunlight at least 20 minutes three times a week? Yes Social History reports that she has never smoked. She has never used smokeless tobacco. She reports that she drinks alcohol. She reports that she does not use illicit drugs. Do you smoke cigarettes? No Do you exercise? Yes. Details: walking 30 minutes most days, weights at home 10 min/day Do you drink alcohol? 2x/wk wine Medication History Have you used any of the following medications? Actonel (Risedronate): No Aredia (Pamidronate): No Boniva (Ibindronate): No Didronil (Etidronate): No Evista (Raloxifene): No Fosamax (Alendronate): No Forteo (Parathyroid hormone) injections: No HCTZ (Thiazide): No Calcitonin nasal spray: No Reclast or Zometa (Zolendronate): No Prolia (Denosumab): No Current Outpatient Prescriptions Medication Sig ??? azelastine (ASTELIN) 137 MCG/SPRAY nasal spray [place] 1-2 sprays into both nostrils 2 times daily ??? estradiol (ESTRING) [address] 1 each vaginally every 3 months ??? CALCIUM CITRATE-VITAMIN D PO Take 2 tablets by mouth daily Calcium-500 mg Vitamin d-150 iu ??? valACYclovir (VALTREX) 1000 mg tablet Take 1 tablet (1,000 mg) by mouth 3 times daily ??? hydrocortisone-pramoxine (PROCTOFOAM-HC) rectal foam Place 1 applicator rectally 2 times daily ??? diphenhydrAMINE (BENADRYL) 25 MG tablet Take [...] Take 2 tablets by mouth daily. Allergies Allergen Reactions ??? Propofol Other (See Comments) and Nausea and Vomiting Extreme vertigo and nausea/vomiting ??? Codeine Nausea and Vomiting ??? Morphine Nausea and Vomiting ??? Latex Rash ??? Nickel Rash ??? Tape (Adhesive Tape) Rash Past Medical History Family History Problem Relation Age of Onset ??? Colon CA Mother colon polyps, age 93 ??? Cardiovascular Father CHF age 79, hx of PE and HTN ??? Hypertension Father ??? Cancer Maternal Grandmother 84 of pancreatic cancer ??? Heart attack Maternal Grandfather 82 of [place] ??? Cardiovascular Paternal Grandmother age 65 of heart problems ??? Pneumonia Paternal Grandfather age 70 after flu ??? Cancer Sister uterine cancer ROS: General: none Head/Eyes: none Ears/Nose/Throat: none Cardiovascular: high blood pressure Respiratory: none Gastrointestinal: none Breast: lump (left) was evaluated and benign Genitourinary: vaginal dryness previous bv infection an treated Sexual Function: none Musculoskeletal: none Skin: none Neurological: none Mental Health: none Endocrine: none Clinic Measurements Vitals: BP 140/75 Pulse 71 Ht 1.689 m (5' 6.5) Wt 81.647 kg (180 lb) BMI 28.62 kg/m2 BMI= Body mass index is 28.62 kg/(m^2). Physical exam Constitutional: Well appearing woman in no acute distress. Psychological: appropriate mood. Neck: No thyroidmegaly. Cardiovascular: regular rate and rhythm, normal S1 and S2, no murmurs, rubs or gallops, peripheral pulses full and symmetric Respiratory: clear to auscultation, no wheezes or crackles, normal breath sounds. Gastrointestinal: positive bowel sounds, nontender, no hepatosplenomegaly, no masses. No guarding orrebound. Genitourinary: External genitalia is normal appearance No enlargement of the [place] or [place] glands. Urethra and bladder are non-tender. Vagina has mild discharge - wet prep done - no specific odor. Musculoskeletal: good range of motion, no edema and motor strength is equal in the upper and lower extremities Spine: [Straight, not tender and range of motion good (Flexion, extension,lateral movement, rotational movement]. Neurological: cranial nerves intact, normal strength and sensation, reflexes at patella and biceps normal, normal gait, no tremor. LAB Vertebra; Fracture Assessment: no height loss - and no VFA Dexa Scan: 11/2013 Sodium Date Value Range Status 08/16/2012 138 133 - 144 mmol/L Final Potassium Date Value Range Status 08/16/2012 4.0 3.4 - 5.3 mmol/L Final Chloride Date Value Range Status 08/16/2012 102 94 - 109 mmol/L Final Carbon Dioxide Date Value Range Status 08/16/2012 24 20 - 32 mmol/L Final Anion Gap Date Value Range Status 08/16/2012 11 6 - 17 mmol/L Final Glucose Date Value Range Status 08/16/2012 98 60 - 99 mg/dL Final Non Fasting Urea Nitrogen Date Value Range Status 08/16/2012 17 7 - 30 mg/dL Final Creatinine Date Value Range Status 08/16/2012 0.80 0.52 - 1.04 mg/dL Final Creatinine Date Value Range Status 09/25/2010 0.8 0.52 - 1.04 mg/dL Final New IDMS-traceable calibration beginning 09/19/08 Calcium Date Value Range Status 08/16/2012 8.9 8.5 - 10.4 mg/dL Final Phosphorus Date Value Range Status 02/24/2010 4.2 2.5 - 4.5 mg/dL Final Albumin Date Value Range Status 02/24/2010 4.2 3.3 - 4.9 g/dL Final AST Date Value Range Status 12/02/2010 40 0 - 45 U/L Final ALT Date Value Range Status 12/02/2010 28 0 - 50 U/L Final FRAX Assessment Tool: [, 7.6% for 10 risk Major Osteoporotic, 0.6% for 10 risk of Hip Fracture] Vitamin D level is 34 Risk Factors: PM, age, ASSESSMENT: PM female with minimal risk factors who has osteopenia by T scores on DEXA and minimal risk fractureby FRAX But most of her decreased bone density is in the spine which is not included in the FRAX. Currently she is not on a bone medicine. I reviewed calcium and vitamin D and exercise with her. She has been on HT and most recently an Estring but with PM bleeding being worked up so may not continue with the Estring. Will work up for secondary causes, will get a VFA and then make a decision about medication - if she has a vertebral fracture would recommend a bisphosphonate but if no fracture could continue with current plan of calcium, vitamin D and exercise and repeat DXA in 2 yrs. She is at mild risk for fracture and risk factors are minimal. Will check metabolic parameters and get a VFA. PLAN: Blood work today Schedule VFA Return 24 hour urine collection See me 3 months DX Spine Lateral Only, Calcium timed urine, Bone specific alk phosphatase, Magnesium, Phosphorus, PTH, N-terminal, Basic Metabolic Panel 616.10, 041.9 Bacterial vaginosis Comment: picked up last visit - was treated - still mild symptoms Plan: Wet prep recheck V81.2 CARDIOVASCULAR SCREENING; LDL GOAL LESS THAN 130 Comment: hx of cardiac risk Plan: CRP Cardiac Risk PM bleeding Comment: recent episode of 1x bleeding and TVU showed 5.6 mm and endo bx showed fragments of inactive endometrium Plan: will check if needs further testing at this time Wait on re starting estring If further vaginal bleeding let me know HTN Comment: high BP today on 2 readings - no meds Plan: follow Follow blood pressure I spent approximately 50 minutes with this patient. > 50% of time spent in counseling and coordination of care Mehreen Johnston MD, PhD documented in this encounter Nursing Notes 01/01/2014 9:30 AM CDT >> Addison Martinez LPN Mon Jan 01, 2014 9:41 AM Patient presents with: Osteoporosis documented in this encounter Plan of Treatment Upcoming Encounters Date Type Specialty Care Team Description 09/10/2022 Office Visit Internal Medicine LogeaMargot man MD [address] [place] [id number] (Wo rk) documented as of this encounter Procedures Procedure Name Priority Date/Time Associated Diagnosis Comme nts PHOSPHORUS Routine 01/01/2014 11:09 Osteopenia Results for this AM CDT procedure are i n the results section. PARATHYROID HORMONE Routine 01/01/2014 11:09 Osteopenia Resu lts for this INTACT AM CDT procedure are i n the results section. MAGNESIUM Routine 01/01/2014 11:09 Osteopenia Results for this AM CDT procedure are i n the results section. CRP CARDIAC RISK Routine 01/01/2014 11:09 CARDIOVASCULAR Resul ts for this AM CDT SCREENING; LDL GOAL procedur e are in LESS THAN 130 the results section. BONE SPECIFIC ALK Routine 01/01/2014 11:09 Osteopenia Result s for this PHOSPHATASE AM CDT procedure are i n the results section. BASIC METABOLIC Routine 01/01/2014 11:09 Osteopenia Results for this PANEL AM CDT procedure are i n the results section. WET PREPARATION Routine 01/01/2014 9:30 Bacterial vaginosis Re sults for this AM CDT procedure are i n the results section. documented in this encounter Results CRP Cardiac Risk (01/01/2014 11:09 AM CDT) athologist Signature CRP Cardiac 4.7 mg/L [facility] LABS Comment: Reference Values: Low Risk: ? <1.0 mg/L Average Risk: ? 1.0-3.0 mg/L High Risk: ?>3.0 mg/L Acute Inflammation: >8.0 mg/L Specimen Anatomical Collection Method Collection Time Receive d Time (Source) Location / / Volume Laterality Blood specimen 01/01/2014 11:09 4 (specimen) AM CDT 11:10 AM CDT Mehreen Johnston MD PhD LAB - BLOOD ORDERABLES Performing Organization Address City/State/ZIP Code Phon e Number [facility] [address] [place], [place] [phone] [place] [address] LABS (ABNORMAL) Basic Metabolic Panel (01/01/2014 11:09 AM CDT) P athologist Signature Sodium 139 133 - 144 [facility] [place] mmol/L [facility] Potassium 4.2 3.4 - 5.3 [facility] [place] mmol/L [facility] Chloride 104 94 - 109 [facility] [place] mmol/L [facility] Carbon Dioxide 30 20 - 32 [facility] [place] mmol/L [facility] Anion Gap 5 (L) 6 - 17 [facility] [place] mmol/L [facility] Glucose 88 60 - 99 [facility] [place] mg/dL [facility] Urea Nitrogen 16 7 - 30 [facility] [place] mg/dL [facility] Creatinine 0.70 0.52 - [facility] [place] 1.04 mg/dL [facility] GFR Estimate 83 >60 [facility] [place] mL/min/1.7 [facility] GFR Estimate If >90 >60 [facility] [place] Black mL/min/1.7 [facility] Calcium 9.1 8.5 - 10.4 [facility] [place] mg/dL [facility] Specimen Anatomical Collection Method Collection Time Receive d Time (Source) Location / / Volume Laterality Blood specimen 01/01/2014 11:09 4 (specimen) AM CDT 11:10 AM CDT Mehreen Johnston MD PhD LAB - BLOOD ORDERABLES Performing Organization Address City/State/ZIP Code Phon e Number [facility] PTH, N-terminal (01/01/2014 11:09 AM CDT) athologist Signature Parathyroid 47 12 - 72 [facility] Hormone Intact pg/mL [facility] LABS Specimen Anatomical Collection Method Collection Time Receive d Time (Source) Location / / Volume Laterality Blood specimen 01/01/2014 11:09 4 (specimen) AM CDT 11:10 AM CDT Mehreen Johnston MD PhD LAB - BLOOD ORDERABLES Performing Organization Address City/State/ZIP Code Phon e Number [phone] [place] [address] LABS (ABNORMAL) Phosphorus (01/01/2014 11:09 AM CDT) athologist Signature Phosphorus 4.8 (H) 2.5 - 4.5 [facility] mg/dL [facility] Specimen Anatomical Collection Method Collection Time Receive d Time (Source) Location / / Volume Laterality Blood specimen 01/01/2014 11:09 4 (specimen) AM CDT 11:10 AM CDT Mehreen Johnston MD PhD LAB - BLOOD ORDERABLES Performing Organization Address City/State/ZIP Code Phon e Number U [facility] Magnesium (01/01/2014 11:09 AM CDT) athologist Signature Magnesium 2.0 1.6 - 2.3 [facility] mg/dL [facility] Specimen Anatomical Collection Method Collection Time Receive d Time (Source) Location / / Volume Laterality Blood specimen 01/01/2014 11:09 4 (specimen) AM CDT 11:10 AM CDT Mehreen Johnston MD PhD LAB - BLOOD ORDERABLES Performing Organization Address City/State/ZIP Code Phon e Number U [facility] Bone specific alk phosphatase (01/01/2014 11:09 AM CDT) P athologist Signature Bone Spec Alk 14.8 [facility] Phosphatase LAB Comment: Unit: ug/L (Note) INTERPRETIVE INFORMATION: Bone Specific Alkaline Phosphatase Premenopausal Female: ?4.5 - 16.9 u g/L Postmenopausal Female: ?? 7.0 - 22.4 ug /L INTERPRETIVE INFORMATION: Bone Specific Alkaline Phosphatase Liver alkaline phosphatase can affect th e measurement of bone specific alkaline phosphatase in th is assay. Each 100 U/L of liver alkaline phosphatase contri butes an additional 2.5 to 5.8 ug/L to the bone specific alk anil phosphatase result. Performed by [employer], [address] [place] [id number] [email or web address], Sumit Paul MD, L ab. Director Specimen Anatomical Collection Method Collection Time Receive d Time (Source) Location / / Volume Laterality Blood specimen 01/01/2014 11:09 4 (specimen) AM CDT 11:10 AM CDT Mehreen Johnston MD PhD LAB - BLOOD ORDERABLES Performing Organization Address City/State/ZIP Code Phon e Number [place] [phone] [place] [address] [facility] LAB Wet prep (01/01/2014 9:30 AM CDT) Patholo gist Method Time Signature Specimen Vagina FUM Description [facility] Wet Prep Few PMNs seen [facility] No clue cells seen [facility] No Trichomonas seen LAB No yeast seen Micro Report FINAL [facility] Status 01/01/2014 [facility] Specimen Anatomical Collection Method Collection Time Receive d Time (Source) Location / / Volume Laterality 01/01/2014 9:30 AM 4 CDT 10:45 AM CDT Mehreen Johnston MD PhD LAB - MICRO GENERAL ORDERABL ES Performing Organization Address City/State/ZIP Code Phon e Number [facility] [address] [place], [place] [phone] [place] [address] LAB documented in this encounter Visit Diagnoses Diagnosis Osteopenia - Primary Disorder of bone and cartilage, unspecif ied Bacterial vaginosis Vaginitis and vulvovaginitis, unspecifie d CARDIOVASCULAR SCREENING; LDL GOAL LESS THAN 130 Essential hypertension, benign Postmenopausal bleeding documented in this encounter Care Teams Leave Coordinator Relationship Specialty Start Date End Date Mehreen Johnston MD PhD PCP - General Family Practice 11/27/13 03/25/15 documented as of this encounter
--- OUTSIDE RECORDS SUMMARY | 2022-07-30 19:30 | XMS_ITS | Encounter Summary ---
:1945 Author Organization [facility] Address [address] [facility] [place] [address] Care Team Providers Name Role Phone Mehreen Johnston MD PhD Primary Care Provider [phone] Encounter Details Date Type Department Care Team Description 02/04/[address] [facility] Women's Mehreen [facility] PhD [employer] [employer] [facility] [address] [facility] 3RD FLR,[address]YSS[place] [address] [place] [address] [address] [facility] [place], [place] [address] Social History Tobacco Use Types Packs/Day Years [...] Visit Internal Medicine Margot Branham MD [address] [facility] [address] [place] [address] (Wo rk) documented as of this encounter Visit Diagnoses Not on filedocumented in this encounter Care Teams Stitch Bonder Machine Operator Helper Relationship Specialty Start Date End Date Mehreen Johnston MD PhD PCP - General Family Practice 11/27/13 03/25/15 documented as of this encounter
--- OUTSIDE RECORDS SUMMARY | 2022-07-30 19:30 | XMS_ITS | Encounter Summary ---
:1945 Author Organization [place] Address [address] [place] [address]. [place] [address] Care Team Providers Name Role Phone Unavailable Primary Care Provider Unavailable Encounter Details Date Type Department Care Team Description 11/20/2013 Radiant Appointment [facility] Osteopenia [facility] 1st Floor, Clinic 1D [place], [place] [address] Social History Tobacco Use Types Packs/Day Years Used Date Smoking Tobacco: Never Smokeless Tobacco: Never Alcohol Use Standard Drinks/Week Comments No 0 (1 standard drink = 0.6 oz pure alcoho l) Sex Assigned at Date Recorded Female 12/20/2018 4:10 PM CDT documented as of this encounter Plan of Treatment Upcoming Encounters Date Type Specialty Care Team Description 09/10/2022 Office Visit Internal Medicine LogMargot sadler MD [address] [place] [phone] (Wo rk) documented as of this encounter Procedures Procedure Name Priority Date/Time Associated Diagnosis Comme nts DX HIP/PELVIS/SPINE Routine 11/20/2013 7:51 AM Osteopenia Re sults for this SURFACE PLATE INSPECTOR procedure are i n the results section. documented in this encounter Results Dexa hip/pelvis/spine (11/20/2013 7:51 AM SURFACE PLATE INSPECTOR) Anatomical Region Laterality Modality Dexa Computed Radiography Specimen (Source) Anatomical Location Collection Method / Collectio n Time Received Time / Laterality Volume Addenda Addendum by Yimi Chandler MD on 01/27 6:05 PM CDT Table formatting from the original resul t was not included. Amended results: Neck 11/20/2013 0.886 g/cm?? -1.1 0.1 ? Neck 08/31/2012 0.919 g/cm?? -0.9 0.2 ? Neck 11/07/2009 0.883 g/cm?? -1.1 0.0 ? Neck 05/02/2008 0.883 g/cm?? -1.1 0.0 ? Total 11/20/2013 0.803 g/cm?? -1.6 -0.7 -0.050 g/cm?? -5.9% -0.024 g/cm?? - 2.9% Total 08/31/2012 0.827 g/cm?? -1.4 -0.7 -0.026 g/cm?? -3.0% 0.038 g/cm?? 4.8% Total 11/07/2009 0.789 g/cm?? -1.7 -0.9 -0.064 g/cm?? -7.5% -0.064 g/cm?? -7.5% Total 05/02/2008 0.853 g/cm?? -1.2 -0.5 baseline baseline - - ? ? Taking into account the precision errors (reference 2) for this center A. these calculated changes in BMD to th e previous exam are significant: -5.7% ??(decrease) ??at the level of L1 - L2 lumbar spine ?? B. these calculated changes in BMD to th e ??baseline exam are significant: -10.7% ??(decrease) ??at the level of th e L1 - L2 lumbar spine, ?? -5.9% ?? (decrease) ?? at the level of the left h ip, ?? - 12.3 % ??(decrease) ?at the level of the wrist Considerations: ? ? Given the interim decrease in BMD of ?? -5.7% ?at the level of L1 - L2 lumbar spine, ?so as to work up for possible secondary causes of low bone density, suggest that the ordering provider consider metabolic testing (including testosterone levels - males). Principal result tailer off: Buffy Chandler MD, CCD med spa manager Division of Rheumatic and Autoimmune Dis eases Addendum by Yimi Chandler MD on 11/20 6:00 PM SURFACE PLATE INSPECTOR Table formatting from the original resul t was not included. [facility] [address] [place] [address] [phone], [place] [address] Phone: ?? Fax: FINAL Patient name: ?? YIMI GARCIA ([id number] ) Patient demographics: 68.2 year old Whit e Female of 66.8 in. height and 180.0 lbs. weight Ordering provider: BLADE JOHNSTON History: ??POSTMENOPAUSAL status, right hip replacement, finger and thumb fractures as recently as age 22 Current treatments: Vitamin D, Calcium, Previous treatments: hormone replacement Scan: ??DXA exam ([id number] ): Quotations Book are NAVX Exam date: ??11/20/2013 Comparison: ?? 08/31/2012, 11/07/2009, 0 05/02/2008 Dual energy x-ray absorptiometry (DXA) r esults: Region Date BMD T - score Z - score BMD change from baseline BMD % change from baseline BMD change from previous B MD % change from previous L1-L4 11/20/2013 1.122 g/cm?? -0.5 0.6 0 .021 g/cm?? 1.9% 0.028 g/cm?? 2.6% L1-L4 08/31/2012 1.094 g/cm?? -0.7 0.2 - 0.007 g/cm?? -0.6% -0.007 g/cm?? -0.6% L1-L4 11/07/2009 1.101 g/cm?? -0.7 0.4 0 .000 g/cm?? 0.0% 0.000 g/cm?? 0.0% L1-L4 05/02/2008 1.101 g/cm?? -0.7 0.3 b aseline baseline - - L1-L2 11/20/2013 0.904 g/cm?? -2.2 -1.1 -0.108 g/cm?? -10.7% -0.055 g/cm?? -5.7% L1-L2 08/31/2012 0.959 g/cm?? -1.7 -0.8 -0.053 g/cm?? -5.2% -0.038 g/cm?? -3.8% L1-L2 11/07/2009 0.997 g/cm?? -1.4 -0.3 -0.015 g/cm?? -1.5% -0.015 g/cm?? -1.5% L1-L2 05/02/2008 1.012 g/cm?? -1.3 -0.3 baseline baseline - - Neck 11/20/2013 0.907 g/cm?? -0.9 0.3 ? Neck 08/31/2012 0.919 g/cm?? -0.9 0.2 ? Neck 11/07/2009 0.883 g/cm?? -1.1 0.0 ? Neck 05/02/2008 0.883 g/cm?? -1.1 0.0 ? Total 11/20/2013 0.797 g/cm?? -1.7 -0.8 -0.056 g/cm?? -6.6% -0.030 g/cm?? -3.6% Total 08/31/2012 0.827 g/cm?? -1.4 -0.7 -0.026 g/cm?? -3.0% 0.038 g/cm?? 4.8% Total 11/07/2009 0.789 g/cm?? -1.7 -0.9 -0.064 g/cm?? -7.5% -0.064 g/cm?? -7.5% Total 05/02/2008 0.853 g/cm?? -1.2 -0.5 baseline baseline - - Radius 33% 11/20/2013 0.650 g/cm?? -0.8 0.8 -0.091 g/cm?? -12.3% -0.033 g/cm?? -4.8% Radius 33% 08/31/2012 0.683 g/cm?? -0.3 1.1 -0.058 g/cm?? -7.8% -0.019 g/cm?? -2.7% Radius 33% 11/07/2009 0.702 g/cm?? 0.0 1 .2 -0.039 g/cm?? -5.2% -0.039 g/cm?? -5.2% Radius 33% 05/02/2008 0.741 g/cm?? 0.5 1 .6 baseline baseline - - Conclusions: ??The most negative and valid T-score o f ??-2.2 ?? at the level of L1 - L2 lumbar spine, ?? corresponds with low marissa ne density. ??(for premenopausal women and men < ag e 50, Z-scores, not T-scores are reported ) ??The most negative and valid Z-score of -1.1 ?? at the level of L1 - L2 lumbar spine, is WITHIN expected range for age. ??The risk of osteoporotic fracture inc reases approximately 2-fold for each 1.0 SD decrease in T-score. ??Low b one density is not the only risk factor for fracture; consider factors castro ch as patient's age, fall risk, injury risk, previous osteoporotic fract ure, family history of osteoporosis, etc. ??People with an elev ated risk of fracture should be regularly evaluated for low bone mineral density. ??For patients eligible for Medicare, routine testing is allowed once every 2 years. Testing frequency can be increased for patients on corticosteroids. Clinical correlation is recommended. ??Taking into account the precision err ors (reference 2) for this center A. these calculated changes in BMD to th e previous exam are significant: -5.7% ??(decrease) ??at the level of L1 - L2 lumbar spine, ??-3.6% ?? (decrease) ??at the level of the left hi p, ?? B. these calculated changes in BMD to th e ??baseline exam are significant: -10.7% ??(decrease) ??at the level of th e L1 - L2 lumbar spine, ?? -6.6% ?? (decrease) ?? at the level of the left h ip, ?? - 12.3 % ??(decrease) ?at the level of the wrist Considerations: ??Given the interim decrease in BMD of ?? -5.7% ?at the level of L1 - L2 lumbar spine, ??-3.6% ??at the level of the left hip, ??so as to work up for possible secondary causes of low bone de nsity, suggest that the ordering provider consider metabolic testing (inc luding testosterone levels - males). Feel free to contact DXA services if you have any questions or comments. ?? Thank you for the opportunity to be of s ervice to you and your patient. Principal result tailer off: Buffy Chandler MD, CCD med spa manager Division of Rheumatic and Autoimmune Dis eases References: 1. ISCD position statements: ??www.iscd. org ??(includes the report of the 2006 ??Position Development Conference) 2. LSC = least significant changes at [facility] AP spine = ??0.032 g/cm2 ??(03.29.2007) Left hip = 0.029 g/cm2 ??(03.18.2007) Right hip = 0.018 g/cm2 ??(03.18.2007) Left mid radius = 0.043 g/cm2 ??() Lateral spine region = pending Total body = pending Template revised . Technical quality: ??Satisfactory. ??Percent changes not mentioned or with in remaining regions are either insignificant or invalid. ??Please note that the differential destinee gnosis of BMD increase in the spine includes improvement due to pharmacother apy vs inter-current progression of spine degeneration or fracture ??As per the ISCD Position Statements, ??total hip rather than femoral neck re gions are to be compared because larger areas give better precision. ??abnormal vertebrae may be excluded fr om analysis if there is more than a 1.0 T-score difference between the verte brae in question and adjacent vertebrae. Note the wide range in BMD va lues and ??T-scores ??within the lumbar spine [ ?? L1 T-score: ?? -1.8 ?? , ??L2 T-score: ??-2.5, ??L3 T-score: ?? 0.4, ??L4 T-score: ??1.5 ]. ??In the cir cumstances, the lumbar spine is represented by ??L1 - L2 ??so that 2 valid regions are available for analysis, ??results of the scan of the wrist were taken into considerati on for determining WHO bone health diagnosis for the following reason: righ t hip was replaced and so was not scanned Narrative 11/20/2013 5:58 PM SURFACE PLATE INSPECTOR TO VIEW FORMATTED RESULTS WITH TABLES, GO TO PATIENT CHART > IMAGING TAB > DOUBLE CLICK ON DXA Blade Johnston MD PhD IMG DEXA ORDERABLES documented in this encounter Visit Diagnoses Diagnosis Osteopenia Disorder of bone and cartilage, unspecif ied documented in this encounter
--- OUTSIDE RECORDS SUMMARY | 2022-07-30 19:30 | XMS_ITS | Encounter Summary ---
:1945 Author Organization [place] Address [address] [place] [address]. [place] [address] Care Team Providers Name Role Phone Mehreen Johnston MD PhD Primary Care Provider [phone] Encounter Details Date Type Department Care Team Description 12/08/2013 Telephone [facility] Kelin Watson, ARRT [address] [phone] Social History Tobacco Use [...] Office Visit Internal Medicine LogeaMargot man MD [address] [place] [phone] (Wo rk) documented as of this encounter Visit Diagnoses Not on filedocumented in this encounter Care Teams Aircraft Systems Repairer Relationship Specialty Start Date End Date Mehreen Johnston MD PhD PCP - General Family Practice 11/27/13 03/25/15 documented as of this encounter
--- OUTSIDE RECORDS SUMMARY | 2022-07-30 19:30 | XMS_ITS | Encounter Summary ---
:1945 Author Organization [place] Address [address] [facility] [place] [address] Care Team Providers Name Role Phone Mehreen Johnston MD PhD Primary Care Provider [phone] Reason for Visit Reason Onset Date Comments Patient Request 12/01/[address] Nicole delgado Encounter Details Date Type Department Care Team Description 12/01/2013 Telephone [facility] Women's Nurse, [facility] Patient Request (appt [facility] [place] with Dr. Vang) [address] [facility] Professional Bldg [facility] [address] [place] [phone] Social History Tobacco Use Types Packs/Day Years Used Date Smoking Tobacco: Never Smokeless Tobacco: Never Alcohol Use Standard Drinks/Week Comments Yes 0 (1 standard drink = 0.6 oz pure alcoho l) wine few times/wk Sex Assigned at Date Recorded Female 12/20/2018 4:10 PM CDT documented as of this encounter Miscellaneous Notes Telephone Encounter - Jaimie Herman RN - 12/04/2013 3:[address] Johnston, pt needs an endometrial biopsy based on u/s results [facility] Spoke with Yamileth and gave her this information. Due to work travel, sheis not available December 07. Dr. Johnston will fit her in for embx on 12/25. [facility], [place], agreed to call patient to schedule her with Dr. Vang on 12/06. Yamileth indicated understanding and agreed with plan, awaiting call from [facility]. ESTATE MANAGEMENT SPECIALIST Telephone Encounter - Lisseth Vang MD - 12/01/2013 2:30 PM CST Of course - call the [facility] center and get her scheduled. [phone] Just tell them I ok'd it. [place] ESTATE MANAGEMENT SPECIALIST Telephone Encounter - Jaimie Herman RN - 12/01/2013 2:15 PM CST Forwarding to Dr. Vang to see if she can fit patient in on December 06 at [facility] for lump found on exam. ESTATE MANAGEMENT SPECIALIST Telephone Encounter - Jaimie Herman RN - 12/01/2013 2:07 PM CST Message copied by JAIMIE HERMAN on WedDec 01, 2013 2:07 PM ------ Message from: SHIRIN MENDEZ Created: WedDec 01, 2013 12:40 PM Regarding: Pt calling again Contact: Pt left a message on Wednesday about setting up an appt with Dr. Vang earlier than 01/02. She isvery nervous about the lump that Dr. Johnston found in her breast. She is hoping someone can call her at [phone] (cell phone) ok to leave VM. There is nothing sooner at [place] or [facility]. Ptis not available 12/07-12/11. Thanks! -nf Please DO NOT send this message and/or reply back to sender. Call Center Representatives DO NOT respond to messages. ESTATE MANAGEMENT SPECIALIST documented in this encounter Plan of Treatment Upcoming Encounters Date Type Specialty Care Team Description 09/10/2022 Office Visit Internal Medicine Logeais, MD Margot [address] [place] [phone] (Wo rk) documented as of this encounter Visit Diagnoses Not on filedocumented in this encounter Care Teams Electrical Plumbing Supervisor Relationship Specialty Start Date End Date Mehreen Johnston MD PhD PCP - General Family Practice 11/27/13 03/25/15 documented as of this encounter
--- OUTSIDE RECORDS SUMMARY | 2022-07-30 19:30 | XMS_ITS | Encounter Summary ---
:1945 Author Organization [place] Address [address] [place] [address]. [place] [address] Care Team Providers Name Role Phone Mehreen Johnston MD PhD Primary Care Provider [phone] Reason for Visit Reason Onset Date Comments Refill Request 11/12/2014 azelastine Encounter Details Date Type Department Care Team Description 11/12/2014 Refill [facility] Women's Mehreen Johnston efill Request Clinic Gisella Butler MD PhD (azelastine) [address] [facility] 9[address] [facility] Professional [facility] [address] [place] [address],[facility] [address] [place] [address] Social History Tobacco Use Types Packs/Day Years Used Date Smoking Tobacco: Never Smokeless Tobacco: Never Alcohol Use Standard Drinks/Week Comments Yes 0 (1 standard drink = 0.6 oz pure alcoho l) wine few times/wk Sex Assigned at Date Recorded Female 12/20/2018 4:10 PM CDT documented as of this encounter Miscellaneous Notes Telephone Encounter - Lisseth Buck RN - 11/12/2014 9:10 AM CST Received request from [facility] to change the Azelastine spray prescriptionto a 90 day supply. This has been done. ITAL ADMINISTRATIVE ASSISTANT documented in this encounter Plan of Treatment Upcoming Encounters Date Type Specialty Care Team Description 09/10/2022 Office Visit Internal Medicine Margot Branham MD [address] [address] (Wo rk) documented as of this encounter Visit Diagnoses Diagnosis Seasonal allergies - Primary Allergic rhinitis, cause unspecified documented in this encounter Care Teams Wastewater Engineer Relationship Specialty Start Date End Date Mehreen Johnston MD PhD PCP - General Family Practice 11/27/13 03/25/15 documented as of this encounter
--- OUTSIDE RECORDS SUMMARY | 2022-07-30 19:30 | XMS_ITS | Encounter Summary ---
:1945 Author Organization [place] Address [address] [place] [address]. [place] [address] Care Team Providers Name Role Phone Mehreen Johnston MD PhD Primary Care Provider [phone] Reason for Visit Reason Comments RECHECK F/U incontinence Encounter Details Date Type Department Care Team Description 11/26/2014 Office Visit [facility] Carlota Landeros Mixe d incontinence (Primary Dx); Clinic Evette Combs MD Atrophic vaginitis [address] [facility] 100 [address] [place], [place] [phone] [address] Social History Tobacco Use Types Packs/Day Years Used Date Smoking Tobacco: Never Smokeless Tobacco: Never Alcohol Use Standard Drinks/Week Comments Yes 0 (1 standard drink = 0.6 oz pure alcoho l) wine few times/wk Sex Assigned at Date Recorded Female 12/20/2018 4:10 PM CDT documented as of this encounter Last Filed Vital Signs Vital Sign Reading Time Taken Comments Blood Pressure 134/81 11/26/2014 4:46 PM BIOMEDICAL ENGINEERING DIRECTOR Pulse 91 11/26/2014 4:46 PM BIOMEDICAL ENGINEERING DIRECTOR Temperature - - Respiratory Rate - - Oxygen Saturation - - Inhaled Oxygen Concentration - - Weight - - Height - - Body Mass Index - - documented in this encounter Progress Notes Carlota Landeros MD - 11/26/2014 4:45 PM CST Reason for Visit: f/u on PT. Clinical Data: Ms. Ramona Sheikh is a [...] 13 cm H2O; [facility] voided with Valsalva voiding with [...] ml. 6. Left hemipelvis InterStim lead on maintenance mgr imaging. She was still having problems with stress incontinence but wanted to continue with the PT for this. A/P: 67 year old female with mixed incontinence. Discussed [...] ask her questions which were all answered. -Pt. Is interested in a sling but not until March -f/u in February to discuss further and possibly examine for hypermobility vs. ISD but it seems like hypermobility also will check for vaginal stenosis which pt. Complains about. -in the meantime will prescribe some estrogen cream to place locally at area of stenosis. Thank you for allowing me to participate in the care of Ms. Ramona Sheikh and I will keep you updated on her progress. Carlota Landeros MD Over 25 min spent with patient, >50% in discussion and coordination of care. EDICAL ENGINEERING DIRECTOR documented in this encounter Nursing Notes Nubia Rodrigues, RN - 11/26/2014 4:48 PM CST Yamileth Sheikh's goals for this visit include: Chief Complaint Patient presents with ??? RECHECK F/U incontinence She requests these members of her care team be copied on today's visit information: Mehreen Johnston PCP: Mehreen Johnston Referring Provider: No referring provider defined for this encounter. Chief Complaint Patient presents with ??? RECHECK F/U incontinence Initial BP 134/81 Pulse 91 Estimated body mass index is 28.19 kg/(m^2) as calculated from the following: Height as of 09/23/14: 1.702 m (5' 7). Weight as of 09/23/14: 81.647 kg (180 lb). BP completed using cuff size: regular Do you need any medication refills at today's visit? No RU: 51mls Nubia Duque RN EDICAL ENGINEERING DIRECTOR documented in this encounter Plan of Treatment Upcoming Encounters Date Type Specialty Care Team Description 09/10/2022 Office Visit Internal Medicine Margot Branham MD [address] [place] [phone] (Wo rk) documented as of this encounter Procedures Procedure Name Priority Date/Time Associated Diagnosis Comme nts HC MEASURE POST-VOID Routine 11/26/2014 4:39 PM Mixed incontin ence RESIDUAL BIOMEDICAL ENGINEERING DIRECTOR URINE/BLADDER CAPACITY, US NON-IMAGING URINE MICROSCOPIC Routine 11/26/2014 4:36 PM Mixed incontinenc e Results for this BIOMEDICAL ENGINEERING DIRECTOR procedure are i n the results section. UA MACROSCOPIC WITH Routine 11/26/2014 4:36 PM Mixed incontine nce Results for this REFLEX TO MICRO AND BIOMEDICAL ENGINEERING DIRECTOR procedur e are in CULTURE the results section. documented in this encounter Results (ABNORMAL) Urine Microscopic (11/26/2014 4:36 PM BIOMEDICAL ENGINEERING DIRECTOR) [facility] Method Time Signature WBC Urine O - 2 0 - 2 [place] /HPF [facility] RBC Urine O - 2 0 - 2 [place] /HPF [facility] Mucous Urine Present (A) NEG /LPF [facility] Hyaline Casts 2-5 (A) 0 - 2 [facility] /LPF [facility] Specimen Anatomical Collection Method Collection Time Receive d Time (Source) Location / / Volume Laterality 11/26/2014 4:36 PM 5 4:52 BIOMEDICAL ENGINEERING DIRECTOR PM BIOMEDICAL ENGINEERING DIRECTOR Carlota Landeros MD LAB - URINE ORDERABLES Performing Organization Address City/[facility]/ZIP Code Phon e Number [facility] [address] [place] [address] (ABNORMAL) *UA reflex to Microscopic and Culture ([place]) (11/26/2014 4:36 PM BIOMEDICAL ENGINEERING DIRECTOR) [facility] Method Time Signature Color Urine Yellow [facility] Appearance Urine Clear [facility] Glucose Urine Negative NEG mg/dL [facility] Bilirubin Urine Negative NEG [facility] Ketones Urine Negative NEG mg/dL [facility] Specific [place] 1.024 1.003 - [place] Urine 1.035 [facility] Blood Urine Negative NEG [facility] pH Urine 5.5 5.0 - 7.[address] [place] [address] [facility] Protein Albumin 10 (A) NEG mg/dL [place] Urine [facility] Urobilinogen Normal 0.0 - 2.0 [place] mg/dL mg/dL [facility] Nitrite Urine Negative NEG [facility] Leukocyte Negative NEG [place] Esterase Urine [facility] Source Midstream [place] Urine [facility] Specimen Anatomical Collection Method Collection Time Receive d Time (Source) Location / / Volume Laterality Urine specimen 11/26/2014 4:36 PM 015 4:52 (specimen) BIOMEDICAL ENGINEERING DIRECTOR PM BIOMEDICAL ENGINEERING DIRECTOR Carlota Landeros MD LAB - URINE ORDERABLES Performing Organization Address City/[facility]/ZIP Code Phon e Number [facility] [address] [place] [address] documented in this encounter Visit Diagnoses Diagnosis Mixed incontinence - Primary Mixed incontinence urge and stress (male )(female) Atrophic vaginitis Postmenopausal atrophic vaginitis documented in this encounter Care Teams Generating Plant Superintendent Relationship Specialty Start Date End Date Mehreen Johnston MD PhD PCP - General Family Practice 11/27/13 03/25/15 documented as of this encounter
--- OUTSIDE RECORDS SUMMARY | 2022-07-30 19:30 | XMS_ITS | Encounter Summary ---
:1945 Author Organization [place] Address [address] [place] [address]. [place] [address] Care Team Providers Name Role Phone Mehreen Johnston MD PhD Primary Care Provider [phone] Encounter Details Date Type Department Care Team Description 05/09/2014 Orders Only [facility] Giselle Todd, 8th Floor, Clinic [address] Sharmaien [place]ensteen XXX RESIGNE D XXX Building [address] [place] [address] [place] [address] [facility] [place], [place] [address] [phone] Social History Tobacco Use Types Packs/Day Years [...] Internal Medicine Margot Branham MD [address] [facility] [address] [place], [place] [phone] (Wo rk) documented as of this encounter Procedures Procedure Name Priority Date/Time Associated Diagnosis Comme nts AUDIOGRAM, ABR, OAE, OR TYMP - HIM Routine 11/04/2009 SCAN documented in this encounter Results Audiogram, ABR, OAE, or Tymp - HIM Scan (11/04/2009) Narrative This result has an attachment that is no t available. Giselle Todd AuD PROCEDURES documented in this encounter Visit Diagnoses Not on filedocumented in this encounter Care Teams Apprentice Plumber Relationship Specialty Start Date End Date Mehreen Johnston MD PhD PCP - General Family Practice 11/27/13 03/25/15 documented as of this encounter
--- OUTSIDE RECORDS SUMMARY | 2022-07-30 19:30 | XMS_ITS | Encounter Summary ---
:1945 Author Organization [place] Address [address] [facility] [place] [address] Care Team Providers Name Role Phone Mehreen Johnston MD PhD Primary Care Provider [phone] Reason for Visit Reason Onset Date Comments Appointment 12/14/2013 Endometrial Biopsy Encounter Details Date Type Department Care Team Description 12/14/2013 Telephone [facility] Women's Nurse, p Whs Appointment (Endometrial Clinic [place] [facility]) [address] [facility] Professional [address]ld[facility] [address] [place] [phone] Social History Tobacco Use Types Packs/Day Years Used Date Smoking Tobacco: Never Smokeless Tobacco: Never Alcohol Use Standard Drinks/Week Comments Yes 0 (1 standard drink = 0.6 oz pure alcoho l) wine few times/wk Sex Assigned at Date Recorded Female 12/20/2018 4:10 PM CDT documented as of this encounter Miscellaneous Notes Telephone Encounter - Parul Zeng RN - 12/14/2013 9:34 AM CDT Patient called in this AM because she thought she had an appointment with a Dr. Glasgow for an endometrial biopsy today at 8:30 am. I did ask Heidi to review her appointment schedule and we determined that she is scheduled for an endometrial biopsy on 12/25/13. Reviewed this with the patient. She expressed concern that she will have to wait until the for the biopsy as she is concerned about the possibility of cancer. Routed to senior front end engineer to see if any sooner available appointment. documented in this encounter Plan of Treatment Upcoming Encounters Date Type Specialty Care Team Description 09/10/2022 Office Visit Internal Medicine Margot Branham MD [address] [place] [phone] (Wo rk) documented as of this encounter Visit Diagnoses Not on filedocumented in this encounter Care Teams Agricultural Agent Relationship Specialty Start Date End Date Mehreen Johnston MD PhD PCP - General Family Practice 11/27/13 03/25/15 documented as of this encounter
--- OUTSIDE RECORDS SUMMARY | 2022-07-30 19:30 | XMS_ITS | Encounter Summary ---
:1945 Author Organization [facility] Address [address] [place] [address]. [place] [address] Care Team Providers Name Role Phone Mehreen Johnston MD PhD Primary Care Provider [phone] Reason for Referral - Closed Specialty Diagnoses / Procedures Referred By Contact Refer red To Contact Diagnoses Varicose veins of lower extremities with other complications Mehreen Johnston MD Procedures [facility] PhD [address] [place] [address] [id number] Referral ID Status Reason Start Date Expiration Date Visits Requ ested Visits Authorized [id number] Closed 11/27/2013 05/26/2014 1 1 EFACTION PLANT OPERATOR Reason for Visit Reason Comments Physical Encounter Details Date Type Department Care Team Description 11/27/2013 Office Visit [facility] Mehreen Johnston ynecological examination (Primary Dx); [facility] MD Luke PhD Recurrent herpes simplex; [address] Seasonal allergies; [facility] [place] ginal dryness; [facility] [address] FHx: colon cancer; 3RD FLR,ALYSSA 300 External hemorrhoids; [address] (Work) Disorder of bone and cartilage, unspecif ied; [facility] 88 Asymptomatic varicose veins, bilateral; [place], [place] [address] (Fax) Postmenopausal bleeding; [phone] Varicose veins of lower extremities with other complications; Vaginal dischar ge; Tendon nodule; Lump or mass in breast Social History Tobacco Use Types Packs/Day Years Used Date Smoking Tobacco: Never Smokeless Tobacco: Never Alcohol Use Standard Drinks/Week Comments Yes 0 (1 standard drink = 0.6 oz pure alcoho l) wine few times/wk Sex Assigned at Date Recorded Female 12/20/2018 4:10 PM CDT documented as of this encounter Last Filed Vital Signs Vital Sign Reading Time Taken Comments Blood Pressure 131/75 11/27/2013 1:29 PM LIQUEFACTION PLANT OPERATOR Pulse 70 11/27/2013 1:29 PM LIQUEFACTION PLANT OPERATOR Temperature - - Respiratory Rate - - Oxygen Saturation - - Inhaled Oxygen Concentration - - Weight 83.2 kg (183 lb 6.4 oz) 11/27/2013 1:29 PM LIQUEFACTION PLANT OPERATOR Height 168.9 cm (5' 6.5) 11/27/2013 1:29 PM LIQUEFACTION PLANT OPERATOR Body Mass Index 29.16 11/27/2013 1:29 PM LIQUEFACTION PLANT OPERATOR documented in this encounter Patient Instructions Patient InstructionsMehreen Johnston MD PhD - 11/27/2013 2:40 PM LIQUEFACTION PLANT OPERATOR Blood work today Schedule colonoscopy See me for osteoporosis appt - bring all calcium and vitamin D supplements Get pneumovax today Get transvaginal US for vaginal bleeding See ortho for hand nodule See breast center - Dr Vang - question of lump in breast Appointment with me in 1 month EFACTION PLANT OPERATOR documented in this encounter Progress Notes Mehreen Johnston MD PhD - 11/27/2013 2:01 PM CST SUBJECTIVE: Yamileth Sheikh is a 68 year old female who comes in for preventive examination today. This is a 68-year-old 1 para 1001 female. Her last Pap/pelvic was September 2011; her Pap smears have been normal. She had been on hormones from her mid-50s until 2002. She became postmenopausal around themid- 50s, was put on hormone patches and then stopped them from 2002 to 2005. Then in 2005 she restarted them at a very low dose, 0.025 mg. In July 2009 she had five days of bleeding and then some spotting. She had a transvaginal ultrasound, as well as an endometrial biopsy. The endometrial biopsy showed inactive endometrial fragments, no evidence of malignancy. The transvaginal ultrasound showed myomas, one which was new. She is currently using Estring for about 2 years - no progesterone. She reports she had small spot of bleeding the day after changed the Estring about 1 wk ago. Sister had uterine cancer. Not sexually active for 6 yrs. No vaginal itching but does have mild discharge. Does havemild irritation left labia - has used an OTC cleanser and helped some Had mammogram today, had DXA 11/20/2013. Has osteopenia - T=-2.2 in the spine L1 and L2. Drinks Milk 1 glass/day and 1/2 c yogurt/day. Calcium citrate -500mg in 3 capsules - 3 capsules bid - Vitamin D3 1000IU bid, rare multi vitamin - exercise walking 30 min/day Wants to go back to [facility] for cardiac risk eval this summer Has small internal and external hemorrhoids -wanting procto foam - only symptoms when strains - no blood Wants support hose for varicose veins- Needs a prescription Has a nodule right hand - palm - no tenderness and no injury Has right knee pain - on and off Past Medical History Diagnosis Date ??? Rhinitis ??? Fibroid uterus ??? Deviated nasal septum Dr Baer ENT ??? PONV (postoperative nausea and vomiting) ??? Osteoarthritis right hip ??? Hypertension no medication Past Surgical History Procedure Date ??? C/section, classical 1978 , Classical ??? Cl aff surgical pathology 1989 Breast Reduction ??? Breast biopsy, rt/lt Breat Biopsy RT/LT ??? Surgical history of - ? Nasal passages microwaved. Dr Baer ENT ??? Mammoplasty reduction ??? Implant stimulator and leads sacral nerve (stage one and two) 05/19/2011 Procedure:IMPLANT STIMULATOR AND LEADS SACRAL NERVE (STAGE ONE AND TWO); Surgeon:ALEX ACUÑA;Location:[facility] OR ??? Hc colonoscopy thru stoma, diagnostic +FHx 2007 Current Outpatient Prescriptions Medication Sig ??? CALCIUM CITRATE-VITAMIN D PO Take 2 tablets by mouth daily Calcium-500 mg Vitamin d-150 iu ??? valACYclovir (VALTREX) 1000 mg tablet Take 1 tablet (1,000 mg) by mouth 3 times daily ??? azelastine (ASTELIN) 137 MCG/SPRAY nasal spray [place] 1-2 sprays into both nostrils 2 times daily ??? estradiol (ESTRING) [address] 1 each vaginally every 3 months ??? hydrocortisone-pramoxine (PROCTOFOAM-HC) rectal foam Place 1 [...] Take 2 tablets by mouth daily. ??? [DISCONTINUED] valACYclovir (VALTREX) 1000 mg tablet Take 1 tablet (1,000 mg) by mouth 3 times daily Allergies Allergen Reactions ??? Propofol Other (See Comments) and Nausea and Vomiting Extreme vertigo and nausea/vomiting ??? Codeine Nausea and Vomiting ??? Morphine Nausea and Vomiting ??? Latex Rash ??? Nickel Rash ??? Tape (Adhesive Tape) Rash . Immunization History Administered Date(s) Administered ??? Influenza (H1N1) 10/03/2009 ??? Influenza (IIV3) 08/17/2008, 06/16/2009 ??? Mantoux 03/25/2011, 04/30/2011 ??? Pneumococcal 23 valent 11/27/2013 ??? TDAP (BOOSTRIX AGES 10-64) 09/24/2010 ??? Zoster vaccine, live 09/23/2009 Family History Problem Relation Age of Onset ??? Colon CA Mother colon polyps, age 93 ??? Cardiovascular Father CHF age 79, hx of PE and HTN ??? Hypertension Father ??? Cancer Maternal Grandmother 84 of pancreatic cancer ??? Heart attack Maternal Grandfather 82 of [place] ??? Cardiovascular Paternal Grandmother age 65 of heart problems ??? Pneumonia Paternal Grandfather age 70 after flu ??? Cancer Sister uterine cancer History Substance Use Topics ??? Smoking status: Never Smoker ??? Smokeless tobacco: Never Used ??? Alcohol Use: Yes Comment: wine few times/wk History Social History ??? Marital Status: Single Spouse Name: N/A Number of Children: N/A ??? 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 Smoking status: Never Smoker ??? Smokeless tobacco: Never Used ??? Alcohol Use: Yes Comment: wine few times/wk ??? Drug Use: No ??? Sexually Active: Not Currently Other Topics Concern ??? Caffeine Concern Yes 1 c/day ??? Sleep Concern Yes gets hot at night ??? Exercise Yes 30 min walking daily - weights+ ??? Seat Belt Yes Social History Narrative 1 son - - still working at [email or web address] - polish as a second language - lives in a house REVIEW OF SYSTEMS: Constitution:some hot flashes Skin: negative, rash, scaling Eyes: has cataracts but not bothersome Ears/Nose/Throat: has nasal congestion, tinnitus, cough Respiratory: No shortness of breath, dyspnea on exertion, or hemoptysis - does report a cough Cardiovascular: has high blood pressure on occasion but no meds, no chest pain or irreg HR Gastrointestinal:denies nausea, vomiting and heartburn - colonoscopy 2007 - due Genitourinary: no dysuria, frequency or urgency. Musculoskeletal: joint pain Neurologic: negative, headaches, syncope and local weakness Psychiatric: negative, sleep disturbance, anxiety and depression Hematologic/Lymphatic/Immunologic: negative, chills and fever does have allergies Endocrine: negative, negative for, thyroid disorder and diabetes BP 131/75 Pulse 70 Ht 1.689 m (5' 6.5) Wt 83.19 kg (183 lb 6.4 oz) BMI 29.16 kg/m2 PHYSICAL EXAM: Constitutional: Well appearing woman in no acute distress. . Psychological: appropriate mood. Eyes: anicteric, normal extra-ocular movements, pupils are equal and reactive to light. Ears, Nose and Throat: tympanic membranes clear, nose clear and free of lesions, throat clear, moistmucous membrames, neck supple with full range of motion. Neck: No thyroidmegaly. No jugular venous distension, no carotid bruits. Cardiovascular: regular rate and rhythm, normal S1 and S2, no murmurs, rubs or gallops, peripheral pulses full and symmetric Respiratory: clear to auscultation, no wheezes or crackles, normal breath sounds. Breast: has incisions of breast reduction well healed, left breast has firm mobile mass 2 O'clock bythe aerolar about 2 cm size, Rest of breast is soft - left breast is soft and no masses. Symmetricalwithout visible distortion or swelling. . No nipple inversion, no breast dimpling or puckering. Axillary area without masses or lympadenapathy. Gastrointestinal: positive bowel sounds, nontender, no hepatosplenomegaly, no masses. No guarding orrebound.well healed midline scar. Genitourinary: External genitalia pale in appearance but no lesions. Decreased hair distribution. Noenlargement of the Bartholin or [place] glands. Urethra and bladder are non-tender. Vagina is without lesions but has white discharge. No rugae but pink epithelium, no anterior or posterior wall defects.Cervix is smooth, atropic, and at 10 oclock there is an irritated red area no lesion, no cervical motion tenderness. Pap not indicated. Uterus is small size, shape, and contour. Adnexa without tenderness or enlarged. Rectal exam with normal sphincter tone, noted external hemorrhoids, no masses. Perineum without lesions. Lymphatic: no lymphadenopathy. Musculoskeletal:right palm has firm nontender pea size nodule on 4th flexor tendon UE and LE has full range of motion, no edema and motor strength is equal in the upper and lower extremities. Mild spider varicose veins at the ankles, mild varicosities of lower extremities Skin: no concerning lesions, no jaundice. Neurological: cranial nerves intact, normal strength 5/5 and sensation, reflexes at patella and biceps normal 2/4, normal gait, no tremor. ASSESSMENT AND PLAN: V731 Routine gynecological examination (primary encounter diagnosis) Comment: PM female with several health concerns. Needs pneumovax otherwise UTD. FHx of colon ca and is due for screen. Had mammogram today, pap not indicated - she has irritation of cervix which needs to be followed. Is on HT estring and no progesterone - consider 2.5mg provera daily or prometrium 100mg daily or 10d/month give progesterone. Plan: PNEUMOCOCCAL VACCINE,ADULT,SQ OR IM, CERV/VAG CANC SCRN,PELV/BREAST EXAM 054.9 Recurrent herpes simplex Comment: no current lesions Plan: valACYclovir (VALTREX) 1000 mg tablet refill 477.9 Seasonal allergies Comment: no current symptoms Plan: azelastine (ASTELIN) 137 MCG/SPRAY nasal spray refill 625.8 Vaginal dryness Comment: on HT - as above consider progesterone Plan: estradiol (ESTRING) 2 MG vaginal ring refilled V16.0 FHx: colon cancer Comment: thinks test was 2008 and negative but needs recheck every 5 yrs - has + FHx Plan: COLONOSCOPY REFERRAL 455.3 External hemorrhoids Comment: has intermittent symptoms Plan: hydrocortisone-pramoxine (PROCTOFOAM-HC) rectal foam filled 733.90 Disorder of bone and cartilage, unspecified Comment: recent DXA - reviewed calcium and vit D - not on meds - need to discuss in detail with her Plan: 25- OH-Vitamin D Ordered today 454.9 Asymptomatic varicose veins, bilateral Comment: has mild symptoms Plan: gave script for compression stockings 627.1 Postmenopausal bleeding Comment: describes very minor bleeding but is on Estring and no progesterone - would want to r/o hyperplasia - will start with a TVU and consider putting on daily progesterone Plan: US Transvaginal Non OB . . 623.5 Vaginal discharge Comment: mild discharge Plan: Wet prep - 727.89 Tendon nodule Comment: has nodule palm right hand - not symptomatic Plan: ORTHOPEDICS ADULT REFERRAL Will get opinion 611.72 Lump or mass in breast Comment: just had mammogram today but can palpate an area of firmness in left breast near the nipple- Plan: BREAST CENTER REFERRAL Mehreen Johnston MD, PhD EFACTION PLANT OPERATOR documented in this encounter Nursing Notes 11/27/2013 1:30 PM CST >> Addison Martinez LPN Mon Nov 27, 2013 1:30 PM Patient presents with: Physical documented in this encounter Plan of Treatment Upcoming Encounters Date Type Specialty Care Team Description 09/10/2022 Office Visit Internal Medicine Margot Branham MD [address] [place] [phone] (Wo rk) documented as of this encounter Procedures Procedure Name Priority Date/Time Associated Diagnosis Comme nts VITAMIN D DEFICIENCY Routine 11/27/2013 3:51 PM Disorder of marissa ne and Results for this SCREENING LIQUEFACTION PLANT OPERATOR cartilage, procedure are i n unspecified the results section. HC CERV/VAG CANC Routine 11/27/2013 2:48 PM Routine gynecologi mega SCRN,PELV/BREAST LIQUEFACTION PLANT OPERATOR examination EXAM WET PREPARATION Routine 11/27/2013 2:30 PM Vaginal discharge R esults for this LIQUEFACTION PLANT OPERATOR procedure are i n the results section. documented in this encounter Results 25- OH-Vitamin D (11/27/2013 3:51 PM LIQUEFACTION PLANT OPERATOR) athologist Signature Vitamin D 36 30 - 75 [facility] Deficiency ug/L [facility] screening Comment: Season, race, dietary intake, and treatm ent affect the concentration of 14-harueag-Gmbvzzp D. Values may decrea se during winter months and increase during summer months. Values less than 30 ug/L may indicate Vitamin D deficiency. Vitamin D determiniation is routinely erformed by an immunoassay specific for 25 hydroxyvitamin D3. ??If an individua l is on vitamin D2 (ergocalciferol) supplementation, please specify 25 OH v itamin D2 and D3 level determination by LCMSMS test VITD23. ??For questions, pl ease contact the laboratory at [phone]. Specimen Anatomical Collection Method Collection Time Receive d Time (Source) Location / / Volume Laterality Blood specimen 11/27/2013 3:51 PM 014 3:52 (specimen) LIQUEFACTION PLANT OPERATOR PM LIQUEFACTION PLANT OPERATOR Mehreen Johnston MD PhD LAB - BLOOD ORDERABLES Performing Organization Address City/State/ZIP Code Phon e Number [facility] [address] [place], [place] [id number] [place] [address] LABS (ABNORMAL) Wet prep (11/27/2013 2:30 PM LIQUEFACTION PLANT OPERATOR) [facility] gist Method Time Signature Specimen Vaginal Rectal [facility] Description [facility] LAB Wet Prep Few PMNs seen [facility] No Trichomonas seen PAVILION No yeast seen LAB Clue cells seen (A) Micro Report FINAL [facility] Status 11/27/2013 [facility] LAB Specimen Anatomical Collection Method Collection Time Receive d Time (Source) Location / / Volume Laterality 11/27/2013 2:30 PM 4 3:22 LIQUEFACTION PLANT OPERATOR PM LIQUEFACTION PLANT OPERATOR Mehreen Johnston MD PhD LAB - MICRO GENERAL ORDERABL ES Performing Organization Address City/State/ZIP Code Phon e Number [facility] [address] [place] [address] [facility] documented in this encounter Visit Diagnoses Diagnosis Routine gynecological examination - Prim kitty Recurrent herpes simplex Herpes simplex without mention of compli cation Seasonal allergies Allergic rhinitis, cause unspecified Vaginal dryness Other specified symptom associated with female genital organs FHx: colon cancer Family history of malignant neoplasm of gastrointestinal tract External hemorrhoids External hemorrhoids without mention of complication Disorder of bone and cartilage, unspecif ied Asymptomatic varicose veins, bilateral Postmenopausal bleeding Varicose veins of lower extremities with other complications Vaginal discharge Leukorrhea, not specified as infective Tendon nodule Other disorders of synovium, tendon, and bursa Lump or mass in breast documented in this encounter Care Teams Director Public Service Relationship Specialty Start Date End Date Mehreen Johnston MD PhD PCP - General Family Practice 11/27/13 03/25/15 documented as of this encounter
--- OUTSIDE RECORDS SUMMARY | 2022-07-30 19:30 | XMS_ITS | Encounter Summary ---
:1945 Author Organization [place] Address [facility] [place] [address] Care Team Providers Name Role Phone Mehreen Johnston MD PhD Primary Care Provider Encounter Details Date Type Department Care Team Description 11/28/2013 Orders Only [facility] Mehreen Johnston Bacterial vaginosis [facility] MD Luke PhD (Primary Dx) [place] [address] [place] [address] [facility] [id number] [place] [address],[facility] [address] [facility] (Work) [facility] [phone] [place], [place] [address] (Fax) [phone] Social History Tobacco Use Types Packs/Day Years [...] Visit Internal Medicine Margot Branham MD [address] [id number] (Wo rk) documented as of this encounter Visit Diagnoses Diagnosis Bacterial vaginosis - Primary Vaginitis and vulvovaginitis, unspecifie d documented in this encounter Care Teams Donor Floor Technician Relationship Specialty Start Date End Date Mehreen Johnston MD PhD PCP - General Family Practice 11/27/13 03/25/15 documented as of this encounter
--- OUTSIDE RECORDS SUMMARY | 2022-07-30 19:30 | XMS_ITS | Encounter Summary ---
:1945 Author Organization [facility] Address [address] [place] [address]. [place] [address] Care Team Providers Name Role Phone Mehreen Johnston MD PhD Primary Care Provider [phone] Reason for Visit Reason Comments RECHECK EMBX Encounter Details Date Type Department Care Team Description [facility] (Primary Dx[facility] MD Luke PhD Seasonal allergies; [address] Vaginal dryness [facility] [address] [facility] [address] [facility] [address] [place], [place] [address] (Fax) [phone] Social History Tobacco Use Types Packs/Day Years Used Date Smoking Tobacco: Never Smokeless Tobacco: Never Alcohol Use Standard Drinks/Week Comments Yes 0 (1 standard drink = 0.6 oz pure alcoho l) wine few times/wk Sex Assigned at Date Recorded Female 12/20/2018 4:10 PM CDT documented as of this encounter Last Filed Vital Signs Vital Sign Reading Time Taken Comments Blood Pressure 140/78 12/25/2013 3:59 PM CDT Pulse 72 12/25/2013 3:59 PM CDT Temperature - - Respiratory Rate - - Oxygen Saturation - - Inhaled Oxygen Concentration - - Weight 82.3 kg (181 lb 8 oz) 12/25/2013 3:59 PM CDT Height 168.9 cm (5' 6.5) 12/25/2013 3:59 PM CDT Body Mass Index 28.86 12/25/2013 3:59 PM CDT documented in this encounter Patient Instructions Patient InstructionsAllMehreen cobos, MD PhD - 12/25/2013 4:20 PM CDT After your ENDOMETRIAL BIOPSY * Expect some mild cramping and vaginal bleeding/spotting for the next few days. * Take over the counter pain reliever like: 1-- Ibuprofen 600 mg every 6 hours OR 2 -- Aleve 500 mg every 12 hours 3 -- acetaminophen 500 mg every 6 hours if advised to NOT take ibuprofen and Aleve. * You May wear a tampon or pad for bleeding. * Do NOT douche or have intercourse for the next 2-3 days. * Continue your normal diet and activities. If you were advised to take an iron supplement, please take it with fruit, NOT dairy, for maximum iron absorption. CALL [phone] to report: * Bleeding heavier than normal period or bleeding more than 2 days after the procedure. * An abnormal, bad smell to the drainage from your vagina * Fever greater than 100 degrees and/or chills * Severe lower abdominal or pelvic pain Expect a call and/or My Chart Message with your test results within a week. IF you have not heard from me, PLEASE CALL to check on your test result. Thanks. Mehreen Johnston MD, PhD documented in this encounter Progress Notes Mehreen Johnston MD PhD - 12/25/2013 4:17 PM CDT SUBJECTIVE: Imelda Garcia is an 68 year old Female, , comes in for EMBx. She is PM and had A small amt of bleeding in early Nov. She currently is using Estring for 2 yrs - no progesterone. Sister had uterine cancer. She is not seuxally active for 6 yrs. Recent TVU showed stripe of 5.6mm for the endometrium. She has had abn bleeding in the past Jul 2009 with a negative w/u. - bx showed inactive endometrium. Currently has stopped the estring. Has read info on EMBx and agrees to procedure. Reports self med with advil an hour before the procedure. Current method of contraception is post menopausal status OBJECTIVE: BP 140/78 Pulse 72 Ht 1.689 m (5' 6.5) Wt 82.328 kg (181 lb 8 oz) BMI 28.86 kg/m2 Pt mildly anxious, NAD Pelvic exam: Estrogen loss atrophy present. Vaginal mucosa thin and no rugae. Bartholin's, Urethra, [place] Grant's glands are normal. Cervix pale and stenotic - uterus small and anterior - no adnexal masses or tenderness ASSESSMENT: 1. Seasonal allergies (477.9) azelastine (ASTELIN) 137 MCG/SPRAY nasal spray 2. Vaginal dryness (625.8) estradiol (ESTRING) 2 MG vaginal ring 3. Postmenopausal bleeding PLAN: proceed with endometrial biopsy PROCEDURE NOTE -- Endometrial biopsy Verification of Procedure Just before the procedure begins, through verbal and active participation of team members, verify: Initials Patient Name SSA Patient date of SSA Procedure to be performed SSA test: not indicated - postmenopausal status Counseling: Patient counseled on potential side effects of EMX procedure. Consent: Risks, benefits of treatment, and no treatment were discussed. Patient's questions were elicited and answered. Verbalized understanding and agreement with plan. Written consent signed and scanned into medical record. Under sterile technique, cervix was visualized with a medium Graves speculum and prepped with betadine solution. The tenaculum was placed at 2 and 10 on the anterior aspect of her cervix .. Explora currette was guided, with resistance,and could not go through the os. Small dilator was used but the curr ette still could not advance. Dr Lesley Lerner subsequently helped with the procedure and place alidocaine block 5cc at 4 and 8 o'clock. Then a dilator was used to dilate the cervix. The currette then could be passed with some pressure through the cervix to the fundus. The uterus sounded to 7 cm. Suction was applied and a small sample obtained without difficulty. The tenaculum was removed. The specimen was placed immediately into a labeled formalin jar and sent to pathology. EBL: Minimal Complications: None She tolerated the procedure well with pain reported 4-5 of 10 during procedure and 1-2 of 10 at visit end. PLAN: Sample sent to Path. Will call with pathology report and recommended follow up. To report heavy bleeding, severe cramping, or abnormal vaginal discharge. May take Ibuprofen 400-800 mg PO TID PRN or Naproxen 500 mg PO BID for cramping. She received and verbalized understanding of post procedure instructions Mehreen Johnston MD, PhD . documented in this encounter Nursing Notes 12/25/2013 4:00 PM CDT >> Addison Martinez LPN [facility] Dec 25, 2013 4:01 PM Patient presents with: RECHECK - EMBX documented in this encounter Plan of Treatment Upcoming Encounters Date Type Specialty Care Team Description 09/10/2022 Office Visit Internal Medicine Margot Branham MD [address] [address] (Wo rk) documented as of this encounter Procedures Procedure Name Priority Date/Time Associated Diagnosis Comme nts HC ENDOMETRIAL Routine 12/25/2013 4:58 Postmenopausal BIOPSY W/O CERVICAL PM CDT bleeding DILATION SURGICAL PATHOLOGY Routine 12/25/2013 4:50 Postmenopausal Resu lts for this EXAM PM CDT bleeding procedure are i n the results section. documented in this encounter Results Surgical Pathology Exam (12/25/2013 4:50 PM CDT) Component Value Ref Test Analysis Performed At [facility] [employer] Range Method Time Signature Copath Report Patient Name: IMELDA GARCIA MR#: [id number] Specimen #: [id number] Collected: 12/25/2013 Received: 12/26/2013 Reported: 12/28/2013 14:24 Ordering Phy(s): MEHREEN JOHNSTON SPECIMEN(S): Endometrial biopsy FINAL DIAGNOSIS: Endometrial biopsy: ? - ??Scant detached strips of atrophic endometrium (Se e comment) COMMENT: The biopsy specimen contains very scant endometrial tissue c omposed of detached strips of atrophic endometrium. A few fragments of squamous epithelium are identified. Also noted are rare slightly atyp ical appearing small epithelial cell clusters which likely repres ent degenerating squamous cells. There is no definite evidence o f malignancy, however, given the sparsity of endometrial tissu e in this sample, a rebiopsy could be considered if clinically indicat ed. Selected slides of this case were seen in consultation with Dr. Hernandez I have personally reviewed all specimens and or slides, incl uding the listed special stains, and used them with my medical judgeme nt to determine the final diagnosis. Electronically signed out by: Zenobia Trimble M.D., Physicians CLINICAL HISTORY: 68 year-old female with history of post-menopausal bleeding GROSS: One specimen is received in formalin labeled with patient na me and medical record number. Specimen is labeled endometrial biopsy and consists of mul tiple dark red soft tissue fragments measuring in aggregate 0.8 x 0.6 x 0.1 cm. Entirely submitted in one cassette. (Dictated by: Loli cobos 12/26/2013 09:27 AM) MICROSCOPIC: Microscopic examination is performed CPT Codes: A: 44755-FS7 TESTING LAB LOCATION: [facility], [address] ?? [phone] COLLECTION SITE: Client: [facility] Location: [facility] (B) Specimen Anatomical Collection Method Collection Time Receive d Time (Source) Location / / Volume Laterality 12/25/2013 4:50 PM 4 8:42 CDT AM CDT Narrative This result has an attachment that is no t available. Mehreen Johnston MD PhD LAB - [facility] Performing Organization Address City/State/ZIP Code Phon e Number COPATH documented in this encounter Visit Diagnoses Diagnosis Postmenopausal bleeding - Primary Seasonal allergies Allergic rhinitis, cause unspecified Vaginal dryness Other specified symptom associated with female genital organs documented in this encounter Care Teams Felt Pad Cutter Relationship Specialty Start Date End Date Mehreen Johnston MD PhD PCP - General Family Practice 11/27/13 03/25/15 documented as of this encounter
--- OUTSIDE RECORDS SUMMARY | 2022-07-30 19:30 | XMS_ITS | Encounter Summary ---
:1945 Author Organization [facility] Address [address] [place] [address]. [place] [address] Care Team Providers Name Role Phone Mehreen Johnston MD PhD Primary Care Provider [phone] Reason for Visit Reason Comments Physical No pap smear needed Encounter Details Date Type Department Care Team Description 01/07/2015 Office Visit [facility] Mehreen Johnston g eneral medical examination at a health care facility (Primary Dx); [facility] MD Luke PhD External hemorrhoids; [address] Vaginal dryness; [facility] [place], [place] At rophic vaginitis; [facility] [address] Seasonal allergies; 3RD FLR,ALYSSA 300 Proteinuria; [address] (Work) Disorder of bone and cartilage, unspecif ied [facility] [address] [place], [place] [address] (Fax) [phone] Social History Tobacco Use Types Packs/Day Years Used Date Smoking Tobacco: Never Smokeless Tobacco: Never Alcohol Use Standard Drinks/Week Comments Yes 0 (1 standard drink = 0.6 oz pure alcoho l) wine few times/wk Sex Assigned at Date Recorded Female 12/20/2018 4:10 PM CDT documented as of this encounter Last Filed Vital Signs Vital Sign Reading Time Taken Comments Blood Pressure 147/88 01/07/2015 3:33 PM CDT Pulse 74 01/07/2015 3:33 PM CDT Temperature - - Respiratory Rate - - Oxygen Saturation - - Inhaled Oxygen Concentration - - Weight 81 kg (178 lb 9.6 oz) 01/07/2015 3:33 PM CDT Height - - Body Mass Index 27.97 01/04/2015 11:00 AM CDT documented in this encounter Patient Instructions Patient InstructionsMehreen Johnston MD PhD - 01/07/2015 4:10 PM CDT Blood work today Schedule colonoscopy ENT referral UA - bring in first morning specimen documented in this encounter Progress Notes Mehreen Johnston MD PhD - 01/07/2015 3:32 PM CDT SUBJECTIVE: Yamileth Sheikh is a 69 year old female who comes in for preventive examination today. This is a 68-year-old 1 para 1001 female. Her last Pap/pelvic was September 2014; her Pap smears have been normal. She has been on HT in the past with some spotting and bleeding in 2008. This was evaluatedwith TVU and endo bx and showed inactive endometrial fragmants. Myomas were also noted. She is currently using Estring for about 3 years - no progesterone. No bleeding or spotting. Went to [place] in March2014, for second opinion. I do not have those records. Sister had uterine cancer. Not sexually active for 6 yrs. No vaginal itching Had mammogram 12/2014, had DXA 11/20/2013. Has osteopenia - T=-2.2 in the spine L1 and L2. Drinks Milk1 glass/day and 1/2 c yogurt/day. Calcium citrate -500mg in 3 capsules - 3 capsules bid - Vitamin [id number] bid, rare multi vitamin - exercise walking 30 min/day Seen at [facility] for cardiac risk last Wednesday01/04/15. There was some discussion about a BP medicine - perindopril. Saw Dr Acuña - pt has mixed incontinence, and has stenosis - and now also using estrace cream 3x/wk.Thinking of having a sling done in March. Had hyaline casts and was spilling albumin . No dysuria. Past Medical History Diagnosis Date ??? Rhinitis [...] 2007 ??? 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 guaiFENesin 1200 MG TB12 ??? hydrocortisone-pramoxine (PROCTOFOAM-HC) rectal foam Place 1 applicator rectally 2 times daily 15 g 6 ??? estradiol (ESTRING) [address] 1 each vaginally every 3 months 1 each 4 ??? estradiol (ESTRACE VAGINAL) 0.1 MG/GM vaginal cream Place 2 g vaginally three times a week Afterusing daily for 2 weeks. 42.5 g 12 ??? azelastine (ASTELIN) 137 MCG/SPRAY nasal spray [place] 1-2 sprays into both nostrils 2 times daily90 mL 1 ??? valACYclovir (VALTREX) 1000 mg tablet Take 1 tablet (1,000 mg) by mouth 3 times daily 20 tablet 1 ??? Multiple Vitamins-Minerals (MATURE BALANCE PO) Take 1 tablet by mouth Without iron ??? polyethylene glycol (MIRALAX) powder Take 17 g by mouth daily 510 g 1 ??? B Complex Vitamins (VITAMIN-B COMPLEX PO) Take 1 tablet by mouth daily ??? vitamin C (VITAMIN C) 250 MG tablet Take 250 mg by mouth as needed ??? LYSINE PO Take 1 capsule by mouth daily ??? CALCIUM CITRATE-VITAMIN D PO Take 2 tablets by mouth daily Calcium-500 mg Vitamin d-150 iu ??? diphenhydrAMINE (BENADRYL) 25 MG tablet Take [...] Nickel Rash ??? Tape [Adhesive Tape] Rash Most Recent Immunizations Administered Date(s) Administered ??? Influenza (H1N1) 10/03/2009 ??? Influenza (IIV3) 06/16/2009 ??? Mantoux 04/30/2011 ??? Pneumococcal (PCV 13) 01/07/2015 ??? Pneumococcal 23 valent 11/27/2013 ??? TDAP (BOOSTRIX AGES 10-64) 09/24/2010 ??? Zoster vaccine, live 09/23/2009 Family History Problem Relation Age of Onset ??? Cancer - Colorectal Mother colon polyps, age 93 ??? Cardiovascular Father CHF age 79, hx of PE and HTN ??? Hypertension Father ??? Cancer Maternal Grandmother 84 of pancreatic cancer ??? Heart attack Maternal Grandfather 82 of CA ??? Cardiovascular Paternal Grandmother age 65 of heart problems ??? Pneumonia Paternal Grandfather age 70 after flu ??? Cancer Sister uterine cancer ??? Parkinsons Disease Sister History Substance Use Topics ??? Smoking status: Never Smoker ??? Smokeless tobacco: Never Used ??? Alcohol Use: Yes Comment: wine few times/wk History Social History ??? Marital Status: Single Spouse Name: N/A Number of Children: N/A ??? 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 Smoking status: [...] 1 son - - still working at [employer] - azerbaijani as a second language - lives in a house - retiring - March 2015 REVIEW OF SYSTEMS: Constitution:night sweats Skin: negative Eyes: negative Ears/Nose/Throat: nasal congestion, hearing loss, tinnitus, cough Respiratory: No shortness of breath, dyspnea on exertion, cough, or hemoptysis Cardiovascular: negative Gastrointestinal: negative Genitourinary: incontinence Musculoskeletal: negative Neurologic: negative Psychiatric: negative Hematologic/Lymphatic/Immunologic: negative Endocrine: negative BP 147/88 Pulse 74 Wt 81.012 kg (178 lb 9.6 oz) PHYSICAL EXAM: Constitutional: Well appearing woman in [...] wheezes or crackles, normal breath sounds. Breast: breast reduction scars, Symmetrical without visible distortion or swelling. No masses noted.No nipple inversion, no breast dimpling or puckering. Axillary area without masses or lympadenapathy. Gastrointestinal: positive bowel sounds, nontender, no hepatosplenomegaly, no masses. No guarding orrebound. Genitourinary: External genitalia is healthy appearance. decreased hair distribution. No enlargementof the Bartholin or Gilby glands. Urethra and bladder are non-tender. Vagina is without lesions or discharge. Pale epithelium, no anterior or posterior wall defects. Cervix is atrophic smooth, without l esions, no cervical motion tenderness. No Pap indicated. Uterus is small size, shape, and contour. Adnexa without tenderness or enlarged. Rectal exam with normal sphincter tone, no masses. Perineum without lesions. Lymphatic: no lymphadenopathy. Musculoskeletal: good range of motion, no edema and motor strength is equal in the upper and lower extremities Skin: no concerning lesions, no jaundice. Neurological: cranial nerves intact, normal strength and sensation, reflexes at patella and biceps normal, normal gait, no tremor. ASSESSMENT and PLAN: (V70.0) Routine general medical examination at a health care facility (primary encounter diagnosis) Comment: PM female with no acute problems - colonoscopy due, will update with pneumovax #13, Wants TSH done, was recently seen at [facility], had recent mammogram - Dexa due 11/2015, discussed calcium and vit D Plan: CERV/VAG CANC SCRN,PELV/BREAST EXAM, PNEUMOCOCCAL CONJ VACCINE 13 VALENT IM, COLONOSCOPY REFERRAL, TSH - Reflex to FT4, (455.3) External hemorrhoids Comment: intermittent symptoms Plan: hydrocortisone-pramoxine (PROCTOFOAM-HC) rectal Foam prn (625.8) Vaginal dryness Comment: on HT with estring and no vaginal bleeding - now also using estrace cream - observe for anyabn Bleeding - get records from visit to [place] in 03/2014 Plan: estradiol (ESTRING) 2 MG vaginal ring Renewed (627.3) Atrophic vaginitis Comment: as above Plan: estradiol (ESTRACE VAGINAL) 0.1 MG/GM vaginal cream (477.9) Seasonal allergies Comment: having symptoms Plan: azelastine (ASTELIN) 137 MCG/SPRAY nasal spray, OTOLARYNGOLOGY REFERRAL (791.0) Proteinuria Comment: had abnormal UA recently with hyaline casts and albumin Plan: Routine UA with Micro Reflex to Culture First AM specimen Mehreen Johnston MD, PhD documented in this encounter Nursing Notes María Elena Ramsay LPN - 01/07/2015 3:34 PM CDT Chief Complaint Patient presents with ??? Physical No pap smear needed documented in this encounter Miscellaneous Notes Addendum Note - Addison Briones LPN - 02/12/2015 11:17 AM CDT Addended by: ADDISON BRIONES on: 02/12/2015 11:17 AM Modules accepted: SmartSet documented in this encounter Plan of Treatment Upcoming Encounters Date Type Specialty Care Team Description 09/10/2022 Office Visit Internal Medicine Margot Branham MD [address] [address] (Wo rk) documented as of this encounter Procedures Procedure Name Priority Date/Time Associated Diagnosis Comme nts TSH WITH FREE T4 Routine 01/07/2015 5:07 PM Routine General Re sults for this REFLEX CDT Medical Examination procedur e are in At A [facility] Care the results Facility section. HC CERV/VAG CANC Routine 01/07/2015 4:10 PM Routine General SCRN,PELV/BREAST CDT Medical Examination EXAM At A Health Care Facility documented in this encounter Results (ABNORMAL) Routine UA with Micro Reflex to Culture (01/18/2015 7:00 AM CDT) [facility] Method Time Signature Color Urine Light Yellow [facility] Appearance Urine Clear [facility] Glucose Urine Negative NEG mg/dL [facility] Bilirubin Urine Negative NEG [facility] Ketones Urine Negative NEG mg/dL [facility] Specific [place] 1.011 1.003 [facility] Urine 1.035 [facility] Blood Urine Negative NEG [facility] pH Urine 5.5 5.0 - 7.0 [facility] pH [facility] Protein Albumin Negative NEG mg/dL [facility] Urine [facility] Urobilinogen Normal 0.0 - 2.0 [facility] mg/dL mg/dL [facility] Nitrite Urine Negative NEG [facility] Leukocyte Negative NEG [facility] Esterase Urine [facility] Source Midstream [facility] Urine [facility] WBC Urine <1 0 - 2 [facility] /HPF [facility] RBC Urine 1 0 - 2 [facility] /HPF [facility] Bacteria Urine Few (A) NEG /HPF [facility] Squamous 1 0 - 1 [facility] Epithelial /HPF /HPF [facility] Mucous Urine Present (A) NEG /LPF [facility] Specimen Anatomical Collection Method Collection Time Receive d Time (Source) Location / / Volume Laterality Urine specimen 01/18/2015 7:00 AM 015 7:14 (specimen) CDT AM CDT Mehreen Johnston MD PhD LAB - URINE ORDERABLES Performing Organization Address City/State/ZIP Code Phon e Number [facility] [address] TSH - Reflex to FT4 (01/07/2015 5:07 PM CDT) athologist Signature TSH 1.32 0.40 - 4.00 [facility] mU/L [facility] Comment: Effective 05/02/2014, the reference range for this assay has changed to reflect new instrumentation/methodology. Specimen Anatomical Collection Method Collection Time Receive d Time (Source) Location / / Volume Laterality Blood specimen 01/07/2015 5:07 PM 015 5:10 (specimen) CDT PM CDT Mehreen Johnston MD PhD LAB - BLOOD ORDERABLES Performing Organization Address City/[facility]/ZIP Code Phon e Number [facility] [address] [place] [id number] [place] [address] documented in this encounter Visit Diagnoses Diagnosis Routine general medical examination at a health care facility - Primary External hemorrhoids External hemorrhoids without mention of complication Vaginal dryness Other specified symptom associated with female genital organs Atrophic vaginitis Postmenopausal atrophic vaginitis Seasonal allergies Allergic rhinitis, cause unspecified Proteinuria Disorder of bone and cartilage, unspecif ied documented in this encounter Care Teams Examiner Rating Clerk Relationship Specialty Start Date End Date Mehreen Johnston MD PhD PCP - General Family Practice 11/27/13 03/25/15 documented as of this encounter
--- OUTSIDE RECORDS SUMMARY | 2022-07-30 19:30 | XMS_ITS | Encounter Summary ---
:1945 Author Organization [facility] Address [address] [facility] [place] [address] Care Team Providers Name Role Phone Mehreen Johnston MD PhD Primary Care Provider [phone] Reason for Visit Reason Onset Date Comments Medication Request 09/26/2014 mirilax Encounter Details Date Type Department Care Team Description 09/26/2014 Telephone [facility] Women's Nurse, p s Medication Request Clinic Geraldine (mirilax) [address] [facility] Professional Bldg [facility] [address] [place] [id number] Social History Tobacco Use Types Packs/Day Years Used Date Smoking Tobacco: Never Smokeless Tobacco: Never Alcohol Use Standard Drinks/Week Comments Yes 0 (1 standard drink = 0.6 oz pure alcoho l) wine few times/wk Sex Assigned at Date Recorded Female 12/20/2018 4:10 PM CDT documented as of this encounter Miscellaneous Notes Telephone Encounter - Jaimie Herman RN - 09/26/2014 10:25 AM CST Received call from [facility] that pt is there and is requesting a prescription for mirilax. She wants to use up her flex spending money and needs a prescription to be able to do that - she usually buys OTC. This has not been prescribed by Dr. Johnston in the past. Advised a note can be sent to Dr. Johnston to approve, she will be in clinic Wednesday, 10/01. Plan was agreed to. 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
--- OUTSIDE RECORDS SUMMARY | 2022-07-30 19:30 | XMS_ITS | Encounter Summary ---
:1945 Author Organization [place] Address [address] [place] [address]. [place] [address] Care Team Providers Name Role Phone Mehreen Johnston MD PhD Primary Care Provider [phone] Encounter Details Date Type Department Care Team Description 12/28/2014 Orders Only [facility] Anh Costa, Hypertension (Primary Physicians Heart PYTHON PROGRAMMER TOBACCO STEMMER Dx) [facility] 4th Floor, Clinic [address] [place] [phone] Social History Tobacco Use Types Packs/Day [...] Visit Internal Medicine LogeaMargot man MD [address] [place] [address] (Wo rk) documented as of this encounter Results Microalbumin quantitative random urine (01/04/2015 8:27 AM CDT) P athologist Signature Creatinine 189 mg/dL [facility] Urine [facility] Albumin Urine 8 mg/L [facility] mg/L [facility] Albumin Urine 4.41 0 - 25 [facility] mg/g Cr mg/g Cr [facility] Specimen Anatomical Collection Method Collection Time Receive d Time (Source) Location / / Volume Laterality Urine specimen 01/04/2015 8:27 AM 015 8:28 (specimen) CDT AM CDT Anh Costa APRN, CNP LAB - URINE ORDERABLES Performing Organization Address [facility] Phon e Number [address] Glucose (01/04/2015 8:27 AM CDT) P athologist Signature Glucose 98 70 - 99 [facility] mg/dL [facility] Comment: Effective 05/02/2014, the reference range for this assay has changed to reflect new instrumentation/methodology. Specimen Anatomical Collection Method Collection Time Receive d Time (Source) Location / / Volume Laterality Blood specimen 01/04/2015 8:27 AM 015 8:28 (specimen) CDT AM CDT Anh Costa APRN, CNP LAB - BLOOD ORDERABLES Performing Organization Address [facility] Phon e Number [address] CRP cardiac risk (01/04/2015 8:27 AM CDT) P athologist Signature CRP Cardiac 6.5 mg/L [facility] Risk [facility] Comment: Reference Values: Low Risk: ? <1.0 mg/L Average Risk: ? 1.0-3.0 mg/L High Risk: ?>3.0 mg/L Acute Inflammation: >8.0 mg/L Specimen Anatomical Collection Method Collection Time Receive d Time (Source) Location / / Volume Laterality Blood specimen 01/04/2015 8:27 AM 015 8:28 (specimen) CDT AM CDT Anh Costa APRN, CNP LAB - BLOOD ORDERABLES Performing Organization Address [facility] Phon e Number [address] N terminal pro BNP outpatient (01/04/2015 8:27 AM CDT) P athologist Signature N-Terminal Pro 120 0 - 125 [facility] Bnp pg/mL [facility] Comment: Reference range shown and results flagge d as abnormal are for the outpatient, non acute settings. Establishing a base line value for each individual patient is useful for follow-up. Suggested inpatient cut points for confi rming diagnosis of CHF in an acute setting are: >450 pg/mL (age 18 to less than 50) >900 pg/mL (age 50 to less than 75) >1800 pg/mL (75 yrs and older) An inpatient or emergency department NT- proPBNP <300 pg/mL effectively rules out acute CHF, with 99% negative predictive value. Specimen Anatomical Collection Method Collection Time Receive d Time (Source) Location / / Volume Laterality Blood specimen 01/04/2015 8:27 AM 015 8:28 (specimen) CDT AM CDT Anh Costa APRN, CNP LAB - BLOOD ORDERABLES Performing Organization Address City/State/ZIP Code Phon e Number [facility] [address] [place], [place] [id number] [place] [address] (ABNORMAL) Lipid panel reflex to direct LDL (01/04/2015 8:27 AM CDT) P athologist Signature Cholesterol 205 (H) <200 mg/dL [facility] Comment: LDL Cholesterol is the primary guide to therapy. The NCEP recommends further evaluation of: patients with cholesterol greater than 200 mg/dL if additional risk facto rs are present, cholesterol greater than 240 mg/dL, triglycerides greater than 1 50 mg/dL, or HDL less than 40 mg/dL. Triglycerides 154 (H) 0 - 150 mg/dL [facility] HDL Cholesterol 60 >50 mg/dL [facility] LDL Cholesterol Calculated 114 0 - 129 mg/dL [facility] Comment: LDL Cholesterol is the primary guide to therapy: LDL-cholesterol goal in high risk patients is <100 mg/dL and in very high risk patients is <70 mg/dL. VLDL-Cholesterol 31 (H) 0 - 30 mg/dL [facility] Cholesterol/HDL Ratio 3.4 0.0 - 5.0 [facility] Specimen Anatomical Collection Method Collection Time Receive d Time (Source) Location / / Volume Laterality Blood specimen 01/04/2015 8:27 AM 015 8:28 (specimen) CDT AM CDT Anh Salma Julissa PYTHON PROGRAMMER TOBACCO STEMMER LAB - BLOOD ORDERABLES Performing Organization Address City/State/ZIP Code Phon e Number [facility] [address] documented in this encounter Visit Diagnoses Diagnosis Hypertension - Primary Unspecified essential hypertension documented in this encounter Care Teams Factorer Relationship Specialty Start Date End Date Mehreen Johnston MD PhD PCP - General Family Practice 11/27/13 03/25/15 documented as of this encounter
--- OUTSIDE RECORDS SUMMARY | 2022-07-30 19:30 | XMS_ITS | Encounter Summary ---
:1945 Author Organization [place] Address [address] [facility] [place] [address] Care Team Providers Name Role Phone Mehreen Johnston MD PhD Primary Care Provider [phone] Reason for Visit Reason Onset Date Comments Refill Request 08/16/2014 Azelastine Encounter Details Date Type Department Care Team Description 08/16/2014 Refill [facility] Women's Nurse, p Whs Refill Request Clinic [place] (Azelastine) [address] Professional Bldg [facility] [address] [place], [place] [phone] Social History Tobacco Use [...] Visit Internal Medicine Margot Branham MD [address] [address] (Wo rk) documented as of this encounter Visit Diagnoses Diagnosis Seasonal allergies Allergic rhinitis, cause unspecified documented in this encounter Care Teams Auto Air Conditioning Apprentice Relationship Specialty Start Date End Date Mehreen Johnston MD PhD PCP - General Family Practice 11/27/13 03/25/15 documented as of this encounter
--- OUTSIDE RECORDS SUMMARY | 2022-07-30 19:30 | XMS_ITS | Encounter Summary ---
:1945 Author Organization [place] Address [address] [place] [address]. [place] [address] Care Team Providers Name Role Phone Mehreen Johnston MD PhD Primary Care Provider [phone] Encounter Details Date Type Department Care Team Description 12/06/2013 Radiant Appointment [facility] Breast [place], Lump or mass in Center Imaging MD Lisseth breast [address] [place] [address] [place] [address] 2nd Floor [facility] [address] [place] [id number] [place] [address] [phone] Social History Tobacco Use Types Packs/Day Years [...] Office Visit Internal Medicine LogMargot sadler MD [address] [place] [address] (Wo rk) documented as of this encounter Procedures Procedure Name Priority Date/Time Associated Diagnosis Comme nts US BREAST LEFT Routine 12/06/2013 11:55 AM Lump or mass in Res ults for this LIMITED 1-3 PARKS AND RECREATION MANAGER breast procedure are i n QUADRANTS the results section. documented in this encounter Results US Breast Left (12/06/2013 11:55 AM PARKS AND RECREATION MANAGER) Anatomical Region Laterality Modality Breast Left Mammography Specimen (Source) Anatomical Location Collection Method / Collectio n Time Received Time / Laterality Volume Impressions 12/06/2013 4:54 PM PARKS AND RECREATION MANAGER IMPRESSION: BI-RADS CATEGORY: 4 - Suspicious Abnormality-Biopsy Should Be Considered Scarring from breast reduction surgery c ould have this appearance as well RECOMMENDED FOLLOW-UP: Biopsy. Ultrasound-guided core needle biopsy lef t breast. The patient was given the results of the examination. VISHAL BLAKE MD Narrative 12/06/2013 4:54 PM PARKS AND RECREATION MANAGER Left breast ultrasound Comparisons: Mammograms November 27, December 10, 2011, October 08, 2010 History: Palpable lump beneath the left areola. Breast reduction surgery in the past. FINDINGS: Hypoechoic poorly marginated l inear masslike area 24 x 54 x 25 mm with anti-parallel long axis orientation is present beneath the lateral aspect of the left areola. Procedure Note Vishal Blake MD - 12/06/2013 Left breast ultrasound Comparisons: Mammograms November 27, December 10, 2011, October 08, 2010 History: Palpable lump beneath the left areola. Breast reduction surgery in the past. FINDINGS: Hypoechoic poorly marginated l inear masslike area 24 x 54 x 25 mm with anti-parallel long axis orientation is present beneath the lateral aspect of the left areola. IMPRESSION IMPRESSION: BI-RADS CATEGORY: 4 - Suspic ious Abnormality-Biopsy Should Be Considered Scarring from breast reduction surgery c ould have this appearance as well RECOMMENDED FOLLOW-UP: Biopsy. Ultrasound-guided core needle biopsy lef t breast. The patient was given the results of the examination. VISHAL BLAKE MD Lisseth Vang MD IMG US ORDERABLES documented in this encounter Visit Diagnoses Diagnosis Lump or mass in breast documented in this encounter Care Teams Strip Feeder Relationship Specialty Start Date End Date Mehreen Johnston MD PhD PCP - General Family Practice 11/27/13 03/25/15 documented as of this encounter
--- OUTSIDE RECORDS SUMMARY | 2022-07-30 19:30 | XMS_ITS | Encounter Summary ---
:1945 Author Organization [place] Address [address] [facility] [place] [address] Care Team Providers Name Role Phone Mehreen Johnston MD PhD Primary Care Provider [phone] Reason for Visit Reason Onset Date Comments Refill Request 08/29/2014 azelastine Encounter Details Date Type Department Care Team Description 08/29/2014 Refill [facility] Women's Nurse, p s Refill Request Clinic [place] (azelastine) 606 [address] Professional Bldg [facility] [address] [place], [place] [phone] Social History Tobacco Use Types Packs/Day Years Used Date Smoking Tobacco: Never Smokeless Tobacco: Never Alcohol Use Standard Drinks/Week Comments Yes 0 (1 standard drink = 0.6 oz pure alcoho l) wine few times/wk Sex Assigned at Date Recorded Female 12/20/2018 4:10 PM CDT documented as of this encounter Miscellaneous Notes Telephone Encounter - Jaimie Herman RN - 08/31/2014 8:26 AM CST Astelin spray called into pharmacy. DEALER documented in this encounter Plan of Treatment Upcoming Encounters Date Type Specialty Care Team Description 09/10/2022 Office Visit Internal Medicine LogeaisMargot MD [address] [place] [address] [phone] (Wo rk) documented as of this encounter Visit Diagnoses Diagnosis Seasonal allergies Allergic rhinitis, cause unspecified documented in this encounter Care Teams Climatology Professor Relationship Specialty Start Date End Date Mehreen Johnston MD PhD PCP - General Family Practice 11/27/13 03/25/15 documented as of this encounter
--- OUTSIDE RECORDS SUMMARY | 2022-07-30 19:30 | XMS_ITS | Encounter Summary ---
:1945 Author Organization [place] Address [address] [place] [address]. [place] [address] Care Team Providers Name Role Phone Mehreen Johnston MD PhD Primary Care Provider [phone] Encounter Details Date Type Department Care Team Description 11/27/2013 Radiant Appointment [facility] Mehreen Johnston Ot her screening [facility] MD Luke PhD mammogram [address], [address] [place] [phone] [phone] Social History Tobacco Use Types Packs/Day Years [...] Visit Internal Medicine Margot Branham MD [address] [address] (Wo rk) documented as of this encounter Procedures Procedure Name Priority Date/Time Associated Diagnosis Comme nts MA SCREENING Routine 11/27/2013 11:35 AM Other screening Resul ts for this DIGITAL BILATERAL LIVESTOCK TRUCKER mammogram procedure are in the results section. documented in this encounter Results MA Screening Digital Bilateral (11/27/2013 11:35 AM LIVESTOCK TRUCKER) Anatomical Region Laterality Modality Breast Bilateral Mammography Specimen (Source) Anatomical Location Collection Method / Collectio n Time Received Time / Laterality Volume Impressions 11/28/2013 10:49 AM LIVESTOCK TRUCKER IMPRESSION: BI-RADS CATEGORY: 2 - Benign Finding(s). RECOMMENDED FOLLOW-UP: Annual Mammograph y The patient will be notified of the resu lts. I have personally reviewed the examinati on and initial interpretation and I agree with the findings. SIERRA KHAN MD Narrative 11/28/2013 10:49 AM LIVESTOCK TRUCKER Examination: Bilateral digital screening mammography with computer aided detection. Comparison: 12/10/2011, 10/08/2010, 8 History: History of right upper outer qu adrant excisional biopsy and left upper outer quadrant needle biopsy, both benign. History of reduction mammoplasty in 1999. No sympto ms, routine screening. BREAST DENSITY: Scattered fibroglandular densities. COMMENTS: Changes consistent with histor y of reduction mammoplasty and right-sided excisional biopsy. ??No susp icious findings. Procedure Note Sierra Khan MD - 2013 Examination: Bilateral digital screening mammography with computer aided detection. Comparison: 12/10/2011, 10/08/2010, 8 History: History of right upper outer qu adrant excisional biopsy and left upper outer quadrant needle biopsy, both benign. History of reduction mammoplasty in 1999. No sympto ms, routine screening. BREAST DENSITY: Scattered fibroglandular densities. COMMENTS: Changes consistent with histor y of reduction mammoplasty and right-sided excisional biopsy. No suspic ious findings. IMPRESSION IMPRESSION: BI-RADS CATEGORY: 2 - Benign Finding(s). RECOMMENDED FOLLOW-UP: Annual Mammograph y The patient will be notified of the resu lts. I have personally reviewed the examinati on and initial interpretation and I agree with the findings. SIERRA KHAN MD Mehreen Johnston MD PhD IMG MAMMOGRAPHY ORDERABLES documented in this encounter Visit Diagnoses Diagnosis Other screening mammogram documented in this encounter Care Teams Youtuber Relationship Specialty Start Date End Date Mehreen Johnston MD PhD PCP - General Family Practice 11/27/13 03/25/15 documented as of this encounter
--- OUTSIDE RECORDS SUMMARY | 2022-07-30 19:30 | XMS_ITS | Encounter Summary ---
:1945 Author Organization [place] Address [address] [place] [address]. [place] [address] Care Team Providers Name Role Phone Mehreen Johnston MD PhD Primary Care Provider [phone] Encounter Details Date Type Department Care Team Description 12/06/2013 Oncology Visit [facility], Lump or mass in breast [facility] MD Lisseth (Primary Dx) [address] [place], [place] 1st Floor [address] [place], [place] [phone] [address] (Work) [phone] Social History Tobacco Use Types Packs/Day Years Used Date Smoking Tobacco: Never Smokeless Tobacco: Never Alcohol Use Standard Drinks/Week Comments Yes 0 (1 standard drink = 0.6 oz pure alcoho l) wine few times/wk Sex Assigned at Date Recorded Female 12/20/2018 4:10 PM CDT documented as of this encounter Last Filed Vital Signs Vital Sign Reading Time Taken Comments Blood Pressure 131/75 12/06/2013 9:04 AM SPECIAL EFFECTS ARTIST Pulse 74 12/06/2013 9:04 AM SPECIAL EFFECTS ARTIST Temperature 36.7 ??C (98.1 ??F) 12/06/2013 9:04 AM SPECIAL EFFECTS ARTIST Respiratory Rate 16 12/06/2013 9:04 AM SPECIAL EFFECTS ARTIST Oxygen Saturation 96% 12/06/2013 9:04 AM SPECIAL EFFECTS ARTIST Inhaled Oxygen Concentration - - Weight 82.1 kg (180 lb 14.4 oz) 12/06/2013 9:04 AM SPECIAL EFFECTS ARTIST Height 168.9 cm (5' 6.5) 12/06/2013 9:04 AM SPECIAL EFFECTS ARTIST Body Mass Index 28.76 12/06/2013 9:04 AM SPECIAL EFFECTS ARTIST documented in this encounter Progress Notes Lisseth Vang MD - 12/05/2013 7:57 PM CST Yamileth is a 68 year old female who presents to the Breast Center referred by Dr. Johnston because of a lump noted in the left breast on CBE during annual exam. Lump noted at 2 o'clock on the left breast in the NA complex. Recent mammogram negative on 11/27/2013: BREAST DENSITY: Scattered fibroglandular densities. COMMENTS: Changes consistent with history of reduction mammoplasty and right- sided excisional biopsy. HPI: Breast Cancer Risk Profile: Age: [age] year old, [place] 1, [place] 1. Age at first 33. Menarche 12. LMP: ~53. Previous Breast Biopsy # 2, Results benign in 90's. Personal History of Cancer No. Family History; Breast cancer mother age 90's. Ovarian cancer negative; Colon Cancer mother. Dense Breast <70. Genetic counseling. Hormones: Estring. ROS General: None Head/eyes: None Cardiovascular: None Respiratory: None Gastrointestinal: None Genitourinary: None Sexual Function: None Musculoskeletal: None Skin: None Neurological: None Mental Health: None Endocrine: None Past Medical History: Past Medical History Diagnosis Date ??? Rhinitis ??? Fibroid uterus ??? Deviated nasal septum Dr Baer ENT ??? PONV (postoperative nausea and vomiting) ??? Osteoarthritis right hip ??? Hypertension no medication Past Surgical History: Past Surgical History Procedure Date ??? C/section, [...] Hc colonoscopy thru stoma, diagnostic +FHx 2007 Medications: Current Outpatient Prescriptions Medication Sig ??? metroNIDAZOLE (FLAGYL) 500 MG tablet Take 1 tablet (500 mg) by mouth 2 times daily ??? CALCIUM CITRATE-VITAMIN D PO Take 2 tablets by mouth daily Calcium-500 mg Vitamin d-150 iu ??? valACYclovir (VALTREX) 1000 mg tablet Take 1 tablet (1,000 mg) by mouth 3 times daily ??? azelastine (ASTELIN) 137 MCG/SPRAY nasal spray Tropic 1-2 sprays into both nostrils 2 times [...] tablet Take 2 tablets by mouth daily. Family Hx: Family History Problem Relation Age of Onset ??? Colon CA Mother colon polyps, age 93 ??? Cardiovascular Father CHF age 79, hx of PE and HTN ??? Hypertension Father ??? Cancer Maternal Grandmother 84 of pancreatic cancer ??? Heart attack Maternal Grandfather 82 of [place] ??? Cardiovascular Paternal Grandmother age 65 of heart problems ??? Pneumonia Paternal Grandfather age 70 after flu ??? 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 Vitals: BP 131/75 Pulse 74 Temp 98.1 ??F (36.7 ??C) (Oral) Resp 16 Ht 1.689 m (5' 6.5) Wt 82.056 kg (180 lb 14.4 oz) BMI 28.76 kg/m2 SpO2 96% BMI Body mass index is 28.76 kg/(m^2). Physical Exam: Constitutional: no distress Pyschological: Alert/Oriented Eyes: anicteric, normal extra-ocular movements Neck: No thyroidmegaly Breast: Examined in a sitting and lying position. Symmetrical with nicely healed scar from previous breast reduction surgery. At 2 o'clock on the face of the aerola there is a palpable mass adjacent tothe scar. No nipple inversion, nipple discharge, breast dimpling or puckering. Breast tissue is homogeneous dense to plapation. Axillary area without masses or lympadenopathy. Lymphatic: No cervical or inguinal Skin: no concerning lesions, no jaundice Neurological: Normal gait, RESULTS: Mammogram: 11/27;2013: BREAST DENSITY: Scattered fibroglandular densities. COMMENTS: Changes consistent with history of reduction mammoplasty and right- sided excisional biopsy. No suspicious findings. Breast US: 12/06/2013: Hypoechoic poorly marginated linear masslike area 24 x 54 x 25 mm with anti-parallel long axis orientation is present beneath the lateral aspect of the left areola. Diagnoses and associated orders for this visit: Lump or mass in breast - adjacent to previous breast reduction scar. 1) Reviewed image (US) today with radiologist and they advised: PLAN: ?? US Breast Biopsy Core Needle, Left; will be schedule for this AM 12/06/2013 ?? Likely benign but will await pathology for confirmation. ?? Will await future imagining recommendation from radiology. IAL EFFECTS ARTIST documented in this encounter Nursing Notes 12/06/2013 9:00 AM CST >> Jayda Gonzalez MA Wed Dec 06, 2013 9:10 AM [facility] BREAST CENTER ROOMING NOTE Reason For Visit: Yamileth Sheikh is a 68 year old year old female. Patient is here for a consult today regarding a breast lump. Patient had screening mammogram on 11/27. Pain Score: 0/10 documented in this encounter Plan of Treatment Upcoming Encounters Date Type Specialty Care Team Description 09/10/2022 Office Visit Internal Medicine Margot Branham MD [address] [place] [address] (Wo rk) documented as of this encounter Visit Diagnoses Diagnosis Lump or mass in breast - Primary documented in this encounter Care Teams Fire Crew Specialist Relationship Specialty Start Date End Date Mehreen Johnston MD PhD PCP - General Family Practice 11/27/13 03/25/15 documented as of this encounter
--- OUTSIDE RECORDS SUMMARY | 2022-07-30 19:30 | XMS_ITS | Encounter Summary ---
:1945 Author Organization [place] Address [address] [place] [address]. [place] [address] Care Team Providers Name Role Phone Mehreen Johnston MD PhD Primary Care Provider [phone] Reason for Visit Reason Onset Date Comments Path Results 12/08/2013 Breat Biopsy Encounter Details Date Type Department Care Team Description 12/08/2013 Telephone [facility] Kelin Watson Results (MERE Ibrahim Biopsy) [address] [address] Social History Tobacco Use Types Packs/Day Years Used Date Smoking Tobacco: Never Smokeless Tobacco: Never Alcohol Use Standard Drinks/Week Comments Yes 0 (1 standard drink = 0.6 oz pure alcoho l) wine few times/wk Sex Assigned at Date Recorded Female 12/20/2018 4:10 PM CDT documented as of this encounter Miscellaneous Notes Telephone Encounter - Mary Jo Olivares RN - 12/12/2013 11:05 AM CDT Pathology Results Reporting December 12, 2013 11:05 AM Pathology Report Reviewed By: Dr. Balbuena Recommendation: routine mammograms Notification of Results and Recommendation:Patient notified Comments: Yamileth Sheikh reports that biopsy site appears to be healing without complications. She denies redness, pain, drainage, or fever/chills. Telephone Encounter - Kelin Watson ARRT - 12/08/2013 1:16 PM BILINGUAL SPEECH LANGUAGE PATHOLOGIST Pathology Results Reporting December 08, 2013 1:16 PM Pathology Report Reviewed By: Dr. Balbuena Recommendation: Routine mammography Notification of Results and Recommendation:Left message for patient to call Breast Center Surgical/Medical Consultation: Date: Time: Provider: Comments: Left message for patient on 12/08 at 1300 MIKEY NGUAL SPEECH LANGUAGE PATHOLOGIST documented in this encounter Plan of Treatment Upcoming Encounters Date Type Specialty Care Team Description 09/10/2022 Office Visit Internal Medicine Margot Branham MD [address] [address] (Wo rk) documented as of this encounter Visit Diagnoses Not on filedocumented in this encounter Care Teams Candy Rolling Machine Operator Relationship Specialty Start Date End Date Mehreen Johnston MD PhD PCP - General Family Practice 11/27/13 03/25/15 documented as of this encounter
--- OUTSIDE RECORDS SUMMARY | 2022-07-30 19:30 | XMS_ITS | Encounter Summary ---
:1945 Author Organization [place] Address [address] [place] [address]. [place] [address] Care Team Providers Name Role Phone Mehreen Johnston MD PhD Primary Care Provider Encounter Details Date Type Department Care Team Description 02/04/2014 Hospital Encounter [facility] jono Butler MD PhD [address] [place] [id number] (Wo rk) Social History Tobacco Use Types Packs/Day Years Used Date Smoking Tobacco: Never Smokeless Tobacco: Never Alcohol Use Standard Drinks/Week Comments Yes 0 (1 standard drink = 0.6 oz pure alcoho l) wine few times/wk Sex Assigned at Date Recorded Female 12/20/2018 4:10 PM CDT documented as of this encounter Medications at Time of Discharge Medication Sig Dispensed Refills Start Date End Date cholecalciferol (VITAMIN Take 2 tablets by 0 D3) 1000 UNIT tablet mouth daily. OTHER MEDICAL SUPPLIES ROCÍO stockings knee 0 length USE DIRECTED . azelastine (ASTELIN) 137 [place] 1-2 sprays 1 Bottle 3 12/2508/16/2014 MCG/SPRAY nasal into both nostrils 2 sprayIndications: times daily Seasonal allergies B Complex Vitamins Take 1 tablet by 0 04/10/2019 (VITAMIN-B COMPLEX PO) mouth daily CALCIUM CITRATE-VITAMIN D Take 2 tablets by mouth daily Calcium-500 m g 0 06/05/2015 PO Vitamin d-150 iu diphenhydrAMINE Take 25 mg by mouth 0 03/22/2015 (BENADRYL) 25 MG tablet every 6 hours as needed. estradiol (ESTRING) [address] 1 each 1 each 0 4 01/07/2015 vaginal ringIndications: vaginally every 3 Vaginal dryness months fish oil-omega-3 fatty Take 1 capsule by 0 04/10/2019 acids (OMEGA 3) 1000 MG mouth 2 times daily capsule Glucosamine-Chondroitin Take 1 tablet by 0 04/10/2019 (GLUCOSAMINE CHONDR mouth. With MSN COMPLEX PO) hydrocortisone-pramoxine Place 1 applicator 15 g 6 01/07/2015 (PROCTOFOAM-HC) rectal rectally 2 times foamIndications: External daily hemorrhoids LYSINE PO Take 1 capsule by 0 019 mouth 2 times daily Magnesium 200 MG TABS Take 4 tablets by 0 04/10/2019 mouth daily. OTHER MEDICAL SUPPLIES ROCÍO Stockings thigh 0 04/13/2016 length valACYclovir (VALTREX) Take 1 tablet (1,000 20 tablet 1 01/07/2015 1000 mg mg) by mouth 3 times tabletIndications: daily Recurrent herpes simplex vitamin C (VITAMIN C) 250 Take 250 mg by mouth 0 04/13/2016 MG tablet as needed documented as of this encounter Plan of Treatment Upcoming Encounters Date Type Specialty Care Team Description 09/10/2022 Office Visit Internal Medicine Margot Branham MD [address] [place] [phone] (Wo rk) documented as of this encounter Visit Diagnoses Not on filedocumented in this encounter Care Teams Fingernail Sculpturer Relationship Specialty Start Date End Date Mehreen Johnston MD PhD PCP - General Family Practice 11/27/13 03/25/15 documented as of this encounter
--- OUTSIDE RECORDS SUMMARY | 2022-07-30 19:30 | XMS_ITS | Encounter Summary ---
:1945 Author Organization [facility] Address [address] [place] [address]. [place] [address] Care Team Providers Name Role Phone Mehreen Johnston MD PhD Primary Care Provider [phone] Encounter Details Date Type Department Care Team Description 11/30/2013 Office Visit [facility] Mehreen Johnston [facility] MD Luke PhD bleeding (Primary Dx) [place] [address] [facility] [address] [facility] Professional [address] [address] [employer] [address] (Work) [place], [place] [phone] [phone] (Fax) [phone] Social History Tobacco Use Types Packs/Day Years Used Date Smoking Tobacco: Never Smokeless Tobacco: Never Alcohol Use Standard Drinks/Week Comments Yes 0 (1 standard drink = 0.6 oz pure alcoho l) wine few times/wk Sex Assigned at Date Recorded Female 12/20/2018 4:10 PM CDT documented as of this encounter Progress Notes Yasmeen Lang MD - 12/01/2013 10:18 AM CST 68 year old female presents for gynecologic ultrasound indicated by post- menopausal bleeding. Transvaginal ultrasound was performed. Uterine findings: Presence: Visible Size: Normal 3.7x4.1x2.9 cm. Endometrium = 5.6 mm. Cx length = 26.9 mm. Flexion: Retroverted Position: Midline Margins: Smooth Shape: Normal Contour: Regular Texture: Heterogeneous Cavity: Abnormal, irregular Masses: Abnormal, small calcified myoma - 8 x 3 x 8mm. Pelvic findings: Right Adnexa: Abnormal, solid mass with calcifications. Possible teratoma. 4.0 x 2.0 x 3.3cm. Left Adnexa: Normal Bladder: Normal Cul - de - sac fluid: None Ovarian follicles: Right ovary: not visualized Left ovary: 1.8 x 1.1x1.3cm. 0 follicles Comments: Mass in right adnexa, similar appearance to U/s that was done in 2009 and MRI done in 2010. Clinical correlation recommended. Yasmeen Lang MD, FACOG [facility] Staff INVESTMENT SPECIALIST 12/01/2013 4:48 PM Chayito Carbajal RDMS SIBLE BRACES ORTHODONTIST documented in this encounter Plan of Treatment Upcoming Encounters Date Type Specialty Care Team Description 09/10/2022 Office Visit Internal Medicine LogeaisMargot MD [address] [id number] (Wo rk) documented as of this encounter Visit Diagnoses Diagnosis Post-menopausal bleeding - Primary Postmenopausal bleeding documented in this encounter Care Teams Heading Matcher And Assembler Relationship Specialty Start Date End Date Mehreen Johnston MD PhD PCP - General Family Practice 11/27/13 03/25/15 documented as of this encounter
--- OUTSIDE RECORDS SUMMARY | 2022-07-30 19:30 | XMS_ITS | Encounter Summary ---
:1945 Author Organization [place] Address [address] [place] [address]. [place] [address] Care Team Providers Name Role Phone Unavailable Primary Care Provider Unavailable Encounter Details Date Type Department Care Team Description 11/20/2013 [facility] Luke PhD Zhang-Wangensteen [address] [place] [address] 1st Floor, Clinic 1D [address] [place], [place] [address] [phone] Social History Tobacco Use Types Packs/Day Years [...] Office Visit Internal Medicine LogeaMargot man MD [address] [place] [address] [phone] (Wo rk) documented as of this encounter Procedures Procedure Name Priority Date/Time Associated Diagnosis Comme nts DX Routine 11/20/2013 7:51 AM Osteopenia Results f or this WRIST/HEEL/RADIUS LIGHT RAIL TRAIN OPERATOR procedure are in the results section. documented in this encounter Results DX Wrist Heel Radius (11/20/2013 7:51 AM LIGHT RAIL TRAIN OPERATOR) Anatomical Region Laterality Modality Dexa Computed Radiography Specimen (Source) Anatomical Location Collection Method / Collectio n Time Received Time / Laterality Volume Addenda Addendum by Yimi Chandler MD on 11/20 5:59 PM LIGHT RAIL TRAIN OPERATOR ?? [facility] [address] [place] [address] [address], [place] [address] Phone: ?? Fax: FINAL Patient name: ?? YIMI GARCIA ([id number] ) Patient demographics: 68.2 year old Whit e Female of 66.8 in. height and 180.0 lbs. weight Ordering provider: MEHREEN JOHNSTON History: ??POSTMENOPAUSAL status, right hip replacement, finger and thumb fractures as recently as age 22 Current treatments: Vitamin D, Calcium, Previous treatments: hormone replacement Scan: ??DXA exam ( [id number] ): [employer] Exam date: ??11/20/2013 Comparison: ?? 08/31/2012, 11/07/2009, 0 05/02/2008 Wrist results are reported and filed und er accession # ??[id number] Principal result educational sign language interpreter: Buffy Chandler MD, CCD gate clerk Division of Rheumatic and Autoimmune Dis eases Narrative 11/20/2013 5:58 PM LIGHT RAIL TRAIN OPERATOR TO VIEW FORMATTED RESULTS WITH TABLES, GO TO PATIENT CHART > IMAGING TAB > DOUBLE CLICK ON DXA Procedure Note Yimi Chandler MD - 11/20/2013Formatti ng of this note might be different from the original. TO VIEW FORMATTED RESULTS WITH TABLES, G O TO PATIENT CHART > IMAGING TAB > DOUBLE CLICK ON DXA Mehreen Johnston MD PhD IMG DEXA ORDERABLES documented in this encounter Visit Diagnoses Diagnosis Osteopenia Disorder of bone and cartilage, unspecif ied documented in this encounter
--- OUTSIDE RECORDS SUMMARY | 2022-07-30 19:30 | XMS_ITS | Encounter Summary ---
:1945 Author Organization [facility] Address [address] [place] [address]. [place] [address] Care Team Providers Name Role Phone Mehreen Johnston MD PhD Primary Care Provider [phone] Reason for Visit Reason Comments Hypertension Encounter Details Date Type Department Care Team Description 01/04/2015 Office Visit [facility] Anh Costa (Primary Dx); [facility] CLAUDIA Marsh CNP Hypertension [facility] 4th Floor, Clinic [address] [phone] Social History Tobacco Use Types Packs/Day Years Used Date Smoking Tobacco: Never Smokeless Tobacco: Never Alcohol Use Standard Drinks/Week Comments Yes 0 (1 standard drink = 0.6 oz pure alcoho l) wine few times/wk Sex Assigned at Date Recorded Female 12/20/2018 4:10 PM CDT documented as of this encounter Last Filed Vital Signs Vital Sign Reading Time Taken Comments Blood Pressure 138/86 01/04/2015 11:00 AM CDT Pulse 79 01/04/2015 11:00 AM CDT Temperature - - Respiratory Rate - - Oxygen Saturation - - Inhaled Oxygen Concentration - - Weight 79.6 kg (175 lb 6.4 oz) 01/04/2015 11:00 AM CDT Height 170.2 cm (5' 7) 01/04/2015 11:00 AM CDT Body Mass Index 27.47 01/04/2015 11:00 AM CDT documented in this encounter Progress Notes Anh Costa APRN CNP - 01/04/2015 9:20 AM CDT Active Problems Patient Active Problem List Diagnosis Date Noted ??? Lump or mass in breast 12/06/2013 [...] GOAL LESS THAN 130 08/03/2010 ??? Elevated Blood Pressure Reading without Diagnosis of Hypertension 09/23/2009 Reason For Visit Patient here for [facility] early detection of atherosclerosis and CVD exam. Pain Evaluation Current history of pain associated with this visit denied HPI Ramona Sheikh is a 69 year old year old female with a history of high blood pressure hypertension and hyperlipidemia with elevated triglycerides. She is currently not taking a blood pressure medication and has been working on health habits to keep her BP in the normal range. 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 The betablocker did not help her tremor so she quit taking it. Her home blood pressures range from 120-160's/70-80's with most over 140's systolic. She feels well with no chest pain or shortness of breath. She is planning to retire in March and is hoping to have more time for additional exercise. Nutrition assessment per patient report: She generally tries to follow a Mediterranean eating pattern although this can vary. Foods with fat/cholesterol (fried foods, fatty meats, junk food): 0 per day. Fruits and vegetables (?? cup cooked, 1 cup raw): 4 or more servings per day. Caffeine (1 cup coffee, soda etc.). 1 servings per day of coffee. Alcohol servings (12 oz. beer, 4 oz. wine, 1?? oz. in mixed drink) occasional about 8 per month Calcium servings (dairy foods, 8 oz. milk, yogurt, cheese, ice cream) 4 or more servings per day. I add salt to my food and or eat salty prepared foods:rare. Special dietary habits: none. Activity: Patient is active 3-4 times per week, for 30-45 minutes. Labs We discussed laboratory results today including lipids targets and how foods influences cholesterol.Triglycerides are mildly elevated as they have been in the past. Glucose upper range of normal. She reports eating a meal with rice last night. Weight: She perceived healthy weight is 145 pounds. Body mass index is 27.47 kg/(m^2). A normal BMI of 25 isequal to159 pounds. A weight reduction speed of two pounds per month is recommended. PMH Past Medical History Diagnosis Date ??? Rhinitis ??? Fibroid uterus ??? Deviated nasal septum Dr [facility] ??? PONV (postoperative nausea and vomiting) ??? Osteoarthritis right hip ??? Hypertension age 66 no medication ??? Urinary problem 2010 has a bladder implant, interstim PSH Past Surgical History Procedure Laterality Date [...] ??? Hrw vein stripper Left 1996 Current Meds Current Outpatient Prescriptions Medication Sig Dispense Refill ??? Multiple Vitamins-Minerals (MATURE BALANCE PO) Take [...] Take 2 tablets by mouth daily. ??? guaiFENesin 1200 MG TB12 ??? hydrocortisone-pramoxine [...] ??? azelastine (ASTELIN) 137 MCG/SPRAY nasal spray [place] 1-2 sprays into both nostrils 2 times daily90 mL 1 ??? valACYclovir (VALTREX) 1000 mg tablet Take 1 tablet (1,000 mg) by mouth 3 times daily 20 tablet 1 Allergies Allergies Allergen Reactions ??? Propofol Other (See Comments) and Nausea and Vomiting Extreme vertigo and nausea/vomiting ??? Codeine Nausea and Vomiting ??? Morphine Nausea and Vomiting ??? Latex Rash ??? Nickel Rash ??? Tape [Adhesive Tape] Rash Family Hx Family History Problem Relation Age of Onset ??? Cancer - Colorectal Mother colon polyps, age 93 ??? Cardiovascular Father CHF age 79, hx of PE and HTN ??? Hypertension Father ??? Cancer Maternal Grandmother 84 of pancreatic cancer ??? Heart attack Maternal Grandfather 82 of [place] ??? Cardiovascular Paternal Grandmother age 65 of heart problems ??? Pneumonia Paternal Grandfather age 70 after flu ??? 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 Enjoyment of life is 10 with 10 [...] Endocrinology: Negative. Musculoskeletal: Negative Vital Signs BP 138/86 Pulse 79 Ht 1.702 m (5' 7) Wt 79.561 kg (175 lb 6.4 oz) BMI 27.47 kg/m2 Waist:40 in. Hip: 43 in. Physical Exam In general, the patient is [...] are +4/4 at the radial, brachial, femoral, and PT sites bilaterally. No bruits are noted. Results ABDOMINAL AORTA ULTRASOUND SupraIliac: 1.8 cm < 2.5 Normal SupraRenal 1.8 cm 2.5 - 2.9 Ectatci InfraRenal Proximal 1.8 cm More than 3 cm Anuerysmal InfraRenal Distal 1.8 cm Comments: within normal limit LEFT VENTRICULAR ULTRASOUNDS MEASUREMENTS LVIDD 45 mm Septa 10 mm Posterior 7 mm Recent Labs Lab Results Component Value Date GLC 98 01/04/2015 Lab Results Component Value Date NTBNP 120 01/04/2015 No results found for this basename: ntbnpi Lab Results Component Value Date UCRR 189 01/04/2015 Lab Results Component Value Date MICROL 8 01/04/2015 Lab Results Component Value Date MICROALBUMIN 4.41 01/04/2015 Lab Results Component Value Date CRP 4.7 01/01/2014 CRP <5.0 08/16/2012 Lab Results Component Value Date CHOL 205* 01/04/2015 Lab Results Component Value Date TRIG 154* 01/04/2015 Lab Results Component Value Date HDL 60 01/04/2015 Lab Results Component Value Date LDL 114 01/04/2015 Lab Results Component Value Date VLDL 31* 01/04/2015 Lab Results Component Value Date CHOLHDLRATIO 3.4 01/04/2015 Assessment Cardiovascular: ECG today sinus rate 69 with J point elevation present in past ECG's. No chest pain or shortness of breath. Blood pressure: currently not taking any medications. BP's in clinic today range from upper 130's to140's/70-80. Given her low artery elasticity a BP medication may benefit her blood vessel health. Wediscussed possibly adding low dose perindopril 2 mg per day. Will discuss with prevention team when all data is completed. Lipids: Mild elevation of triglycerides present now and then in past lipid levels. Glucose upper range of normal. No family history of diabetes. Time spent for patient visit was 55 minutes with more than half the time spent on counseling and coordination of care. Full report to follow prevention team review of test results with scanned final report. CC Patient Care Team: Mehreen Johnston MD PHD as PCP - General (Family Practice) RASHEED BENAVIDES documented in this encounter Plan of Treatment Upcoming Encounters Date Type Specialty Care Team Description 09/10/2022 Office Visit Internal Medicine Margot Branham MD [address] [place] [phone] (Wo rk) documented as of this encounter Procedures Procedure Name Priority Date/Time Associated Comments Diagnosis EKG 12-LEAD, TRACING Routine 01/04/2015 9:16 AM Hyperten mukul Results for this ONLY CDT Vitamin deficiency procedure are in the results section. VITAMIN D DEFICIENCY Routine 01/04/2015 8:27 AM Vitamin deficiency Results for this SCREENING CDT Hypertension procedure are i n the results section. N TERMINAL PRO BNP Routine 01/04/2015 8:27 AM Hypertensi on Results for this OUTPATIENT CDT Vitamin deficiency procedure are in the results section. ALBUMIN RANDOM URINE Routine 01/04/2015 8:27 AM Hyperten mukul Results for this QUANTITATIVE CDT Vitamin deficiency procedure are in the results section. LIPID REFLEX TO Routine 01/04/2015 8:27 AM Hypertension Results for this DIRECT LDL PANEL CDT Vitamin deficiency proce dure are in the results section. CRP CARDIAC RISK Routine 01/04/2015 8:27 AM Hypertension Results for this CDT Vitamin deficiency procedure are in the results section. GLUCOSE Routine 01/04/2015 8:27 AM Hypertension Results for this CDT Vitamin deficiency procedure are in the results section. HC ANKLE-ARM INDEX Routine 01/04/2015 Vitamin defic iency 1-2 LEVEL BILATERAL Hypertension HC SPIROMETRY, BREATH Routine 01/04/2015 Hypertensi on CAPACITY Vitamin deficiency HC PHOTOGRAPY FUNDUS Routine 01/04/2015 Hypertensio n Vitamin deficiency documented in this encounter Results EKG 12-lead, tracing only (Same Day) (01/04/2015 9:16 AM CDT) [facility] Method Time Signature Interpretation ECG Click View RADIOLOGY Image link RESULTS to view waveform and result Specimen (Source) Anatomical Collection Method Collection Time Re ceived Time Location / / Volume Laterality 01/04/2015 9:16 AM CDT Anh Costa APRN LECTURER IN COMPUTER SCIENCE ECG ORDERABLES Performing Organization Address City/State/ZIP Code Phon e Number RADIOLOGY RESULTS Vitamin D Deficiency (01/04/2015 8:27 AM CDT) P athologist Signature Vitamin D 60 30 - 75 [facility] Deficiency ug/L [facility] Comment: Season, race, dietary intake, and treatm ent affect the concentration of 03-qgvaunl-Rgaqvyw D. Values may decrea se during winter months and increase during summer months. Values less than 30 ug/L may indicate Vitamin D deficiency. Vitamin D determiniation is routinely p erformed by an immunoassay specific for 25 hydroxyvitamin D3. ??If an individua l is on vitamin D2 (ergocalciferol) supplementation, please specify 25 [place] v itamin D2 and D3 level determination by LCMSMS test VITD23. Specimen Anatomical Collection Method Collection Time Receive d Time (Source) Location / / Volume Laterality 01/04/2015 8:27 AM 5 8:28 CDT AM CDT Anh Costa APRN LECTURER IN COMPUTER SCIENCE LAB - BLOOD ORDERABLES Performing Organization Address City/[facility]/ZIP Code Phon e Number [facility] [address] [place] [address] [facility] Microalbumin quantitative random urine (01/04/2015 8:27 AM CDT) P athologist Signature Creatinine 189 mg/dL [facility] Urine [facility] Albumin Urine 8 mg/L [facility] mg/L [facility] Albumin Urine 4.41 0 - 25 [facility] mg/g Cr mg/g Cr [facility] Specimen Anatomical Collection Method Collection Time Receive d Time (Source) Location / / Volume Laterality Urine specimen 01/04/2015 8:27 AM 015 8:28 (specimen) CDT AM CDT Anh Salma Costa APRN, CNP LAB - URINE ORDERABLES Performing Organization Address City/[facility]/ZIP Code Phon e Number [facility] [address] Glucose (01/04/2015 8:27 AM CDT) athologist Signature Glucose 98 70 - 99 [facility] mg/dL [facility] Comment: Effective 05/02/2014, the reference range for this assay has changed to reflect new instrumentation/methodology. Specimen Anatomical Collection Method Collection Time Receive d Time (Source) Location / / Volume Laterality Blood specimen 01/04/2015 8:27 AM 015 8:28 (specimen) CDT AM CDT nAh Costa APRN, CNP LAB - BLOOD ORDERABLES Performing Organization Address City/[facility]/ZIP Code Phon e Number [facility] [address] [place] [id number] [facility] CRP cardiac risk (01/04/2015 8:27 AM CDT) P athologist Signature CRP Cardiac 6.5 mg/L [facility] Comment: Reference Values: Low Risk: ? <1.0 mg/L Average Risk: ? 1.0-3.0 mg/L High Risk: ?>3.0 mg/L Acute Inflammation: >8.0 mg/L Specimen Anatomical Collection Method Collection Time Receive d Time (Source) Location / / Volume Laterality Blood specimen 01/04/2015 8:27 AM 015 8:28 (specimen) CDT AM CDT Anh Costa APRN, CNP LAB - BLOOD ORDERABLES Performing Organization Address City/[facility]/ZIP Code Phon e Number [address] N terminal pro BNP outpatient (01/04/2015 8:27 AM CDT) athologist Signature N-Terminal Pro 120 0 - 125 [facility] Bnp pg/mL [facility] Comment: Reference range shown and results [...] - BLOOD ORDERABLES Performing Organization Address City/[facility] Code Phon e Number [address] (ABNORMAL) Lipid panel reflex to direct LDL (01/04/2015 8:27 AM CDT) P athologist Signature Cholesterol 205 (H) <200 mg/dL [facility] Comment: LDL Cholesterol is the primary guide to therapy. The NCEP recommends further evaluation of: patients with cholesterol greater than 200 mg/dL if additional risk facto rs are present, cholesterol greater than 240 mg/dL, triglycerides greater than 1 50 mg/dL, or HDL less than 40 mg/dL. Triglycerides 154 (H) 0 - 150 mg/dL [facility] HDL Cholesterol 60 >50 mg/dL [facility] LDL Cholesterol Calculated 114 0 - 129 mg/dL [facility] Comment: LDL Cholesterol is the primary guide to therapy: LDL-cholesterol goal in high risk patients is <100 mg/dL and in very high risk patients is <70 mg/dL. VLDL-Cholesterol 31 (H) 0 - 30 mg/dL [facility] Cholesterol/HDL Ratio 3.4 0.0 - 5.0 [facility] Specimen Anatomical Collection Method Collection Time Receive d Time (Source) Location / / Volume Laterality Blood specimen 01/04/2015 8:27 AM 015 8:28 (specimen) CDT AM CDT Anh Costa APRN, CNP LAB - BLOOD ORDERABLES Performing Organization Address City/State/ZIP Code Phon e Number [facility] [address] [place] [address] [facility] [employer] Photography (01/04/2015) Narrative This result has an attachment that is no t available. Anh Costa APRN, CNP PROCEDURES Spirometry, Breathing Capacity (in clinic) (01/04/2015) P athologist Signature FEV-1 FVC FEV1/FVC FEF 25/75 Narrative This result has an attachment that is no t available. Anh Costa APRN, CNP PROCEDURES Arterial PulseWave Analysis (01/04/2015) Anatomical Region Laterality Modality Other Narrative This result has an attachment that is no t available. Anh Costa APRN, CNP SPECIAL IMAGING STUDIES documented in this encounter Visit Diagnoses Diagnosis Vitamin deficiency - Primary Unspecified vitamin deficiency Hypertension Unspecified essential hypertension documented in this encounter Care Teams Lamination Machine Operator Relationship Specialty Start Date End Date Mehreen Johnston MD PhD PCP - General Family Practice 11/27/13 03/25/15 documented as of this encounter
--- OUTSIDE RECORDS SUMMARY | 2022-07-30 19:30 | XMS_ITS | Encounter Summary ---
:1945 Author Organization [facility] Address [address] [place] [address]. [place] [address] Care Team Providers Name Role Phone Mehreen Johnston MD PhD Primary Care Provider [phone] Encounter Details Date Type Department Care Team Description 12/06/2013 Radiant Appointment [facility] Breast [place], Lump or mass in Center Imaging MD Lisseth breast [address] [place] [address] [place] [address] 2nd Floor [facility] [address] [id number] [place] [address] [phone] Social History Tobacco Use Types Packs/Day Years [...] Office Visit Internal Medicine LogeaMargot man MD [address] [place] [address] (Wo rk) documented as of this encounter Procedures Procedure Name Priority Date/Time Associated Diagnosis Comme nts US BREAST BIOPSY Routine 12/06/2013 11:40 AM Lump Or Mass In R esults for this CORE NEEDLE LEFT CROSSBOW MAKER Breast procedure a re in the results section. documented in this encounter Results US Breast Biopsy Core Needle, 1St Lesion Left (12/06/2013 11:40 AM CROSSBOW MAKER) Anatomical Region Laterality Modality Breast Left Mammography Specimen (Source) Anatomical Location Collection Method / Collectio n Time Received Time / Laterality Volume Impressions 12/06/2013 11:18 AM CROSSBOW MAKER IMPRESSION: BI-RADS CATEGORY: 4 - Suspicious Abnormality-Biopsy Should Be Considered Scarring from breast reduction surgery c ould have this appearance as well. RECOMMENDED FOLLOW-UP: Biopsy. Ultrasound-guided core needle biopsy lef t breast. The patient was given the results of the examination. VISHAL BLAKE MD Narrative 12/06/2013 11:18 AM CROSSBOW MAKER Left breast ultrasound Comparisons: Mammograms November 27, December 10, 2011, October 08, 2010 History: Palpable lump beneath the left areola. Breast reduction surgery in the past. FINDINGS: ? Hypoechoic poorly margin ated linear masslike area 24 x 54 x 25 mm with anti-parallel long axis orientation is present beneath the lateral aspect of the left areola. ?? Procedure Note Vishal Blake MD - 10/02/2014 Left breast ultrasound Comparisons: Mammograms November 27, [...] surgery c ould have this appearance as well. RECOMMENDED FOLLOW-UP: Biopsy. Ultrasound-guided core needle biopsy lef t breast. The patient was given the results of the examination. VISHAL BLAKE MD Lisseth Vang MD IM US ORDERABLES documented in this encounter Visit Diagnoses Diagnosis Lump or mass in breast documented in this encounter Administered Medications Inactive Administered Medications - up to 3 most recent administrations Medication Order MAR Action Action Date Dose Rate Site lidocaine BUFFERED 1 % solution 10 Given 12/06/2013 11:18 AM CROSSBOW MAKER 5 mLs mL 10 mL, Injection, ONCE, On Wed12/06/13 at 1130, For 1 dose documented in this encounter Care Teams Recycling Worker Relationship Specialty Start Date End Date Mehreen Johnston MD PhD PCP - General Family Practice 11/27/13 03/25/15 documented as of this encounter
--- OUTSIDE RECORDS SUMMARY | 2022-07-30 19:30 | XMS_ITS | Encounter Summary ---
:1945 Author Organization [facility] Address [address] [place] [address]. [place] [address] Care Team Providers Name Role Phone Mehreen Johnston MD PhD Primary Care Provider [phone] Encounter Details Date Type Department Care Team Description 12/31/2014 Radiant Appointment [facility] Breast [facility], Other screening Center Imaging MD Lisseth mammogram [address] [place] [address] [place] [address] 2nd Floor [facility] [address] [phone] [place] [address] [phone] Social History Tobacco Use Types Packs/Day Years [...] Internal Medicine Margot Branham MD [address] [address] (Wo rk) documented as of this encounter Procedures Procedure Name Priority Date/Time Associated Diagnosis Comme nts MA SCREENING Routine 12/31/2014 9:44 AM Other screening Result s for this DIGITAL BILATERAL CDT mammogram procedure are in the results section. documented in this encounter Results MA Screening Digital Bilateral (12/31/2014 9:44 AM CDT) Anatomical Region Laterality Modality Breast Bilateral Mammography Specimen (Source) Anatomical Location Collection Method / Collectio n Time Received Time / Laterality Volume Impressions 01/01/2015 4:07 PM CDT IMPRESSION: BI-RADS CATEGORY: 2 - Benign Finding(s). RECOMMENDED FOLLOW-UP: Annual Mammograph y Results will be sent to the patient. I have personally reviewed the examinati on and initial interpretation and I agree with the findings. ÁNGEL DUKE MD Narrative 01/01/2015 4:07 PM CDT SCREENING MAMMOGRAM, BILATERAL, DIGITAL w/CAD - 12/31/2014 9:44 AM. BREAST SYMPTOMS: No current breast compl aints. HISTORY: Left upper outer needle biopsy and right upper outer excisional biopsy, reduction mammoplasty in 1999 COMPARISON: ??12/06/2013, 11/27/2013, 012, and 10/08/2010. BREAST DENSITY: Scattered fibroglandular densities. COMMENTS: No findings of suspicion for m alignancy. ?? No significant changes status post reduction mammoplast y, and right-sided excisional biopsy Procedure Note Ángel Duke MD - 01/01/2015F ormatting of this note might be different from the original. SCREENING MAMMOGRAM, BILATERAL, DIGITAL w/CAD - 12/31/2014 9:44 AM. BREAST SYMPTOMS: No current breast compl aints. HISTORY: Left upper outer needle biopsy and right upper outer excisional biopsy, reduction mammoplasty in 1999 COMPARISON: 12/06/2013, 11/27/2013, 2, and 10/08/2010. BREAST DENSITY: Scattered fibroglandular densities. COMMENTS: No findings of suspicion for m alignancy. No significant changes status post reduction mammoplast y, and right-sided excisional biopsy IMPRESSION IMPRESSION: BI-RADS CATEGORY: 2 - Benign Finding(s). RECOMMENDED FOLLOW-UP: Annual Mammograph y Results will be sent to the patient. I have personally reviewed the examinati on and initial interpretation and I agree with the findings. ÁNGEL DUKE MD Mehreen Johnston MD PhD IMG MAMMOGRAPHY ORDERABLES documented in this encounter Visit Diagnoses Diagnosis Other screening mammogram documented in this encounter Care Teams Manager Plan Relationship Specialty Start Date End Date Mehreen Johnston MD PhD PCP - General Family Practice 11/27/13 03/25/15 documented as of this encounter
--- OUTSIDE RECORDS SUMMARY | 2022-07-30 19:30 | XMS_ITS | Encounter Summary ---
:1945 Author Organization [facility] Address [address] [place] [address]. [place] [address] Care Team Providers Name Role Phone Mehreen Johnston MD PhD Primary Care Provider [phone] Encounter Details Date Type Department Care Team Description 12/06/2013 Radiant Appointment [facility] Breast [place], Lump or mass in Center Imaging MD Lisseth breast [address] [place] [address] [place] [address] 2nd Floor [facility] [address] [id number] [place] [address] [phone] Social History Tobacco Use Types Packs/Day Years [...] Visit Internal Medicine Margot Branham MD [address] [place] [address] (Wo rk) documented as of this encounter Procedures Procedure Name Priority Date/Time Associated Diagnosis Comme nts MA POST PROCEDURE Routine 12/06/2013 12:07 PM Lump or mass in Results for this LEFT EXCEL SPECIALIST breast procedure are i n the results section. documented in this encounter Results MA Post Procedure Left (12/06/2013 12:07 PM EXCEL SPECIALIST) Anatomical Region Laterality Modality Breast Left Mammography Specimen (Source) Anatomical Location Collection Method / Collectio n Time Received Time / Laterality Volume Addenda Addendum by Vishal Blake MD on 12/28/19 14 3:56 PM CDT Histology of benign breast tissue and fi brous stroma concordant with imaging findings. Recommendation: Yearly mammography. VISHAL BLAKE MD Narrative 12/06/2013 4:58 PM EXCEL SPECIALIST Exam: Ultrasound-guided core needle biopsy left breast, clip placement, postbiopsy mammogram Procedure, risks, alternatives, explaine d and discussed with the patient. Signed consent obtained. Using ultrasound guidance, aseptic techn ique, local anesthesia, a 14-gauge automated core biopsy needle th rough a 13-gauge cannula, suspicious area beneath the lateral areo la was sampled. 2 cores were obtained. A radiopaque marker was placed . Postbiopsy biopsy mammogram confirms marker deployment. The area was bandaged. An icepack was applied. Discharge instructions were giv en to the patient. There are no apparent complications. VISHAL BLAKE MD Procedure Note Vishal Blake MD - 12/06/2013 Exam: Ultrasound-guided core needle biop sy left breast, clip placement, postbiopsy mammogram Procedure, risks, alternatives, explaine d and discussed with the patient. Signed consent obtained. Using ultrasound guidance, aseptic techn ique, local anesthesia, a 14-gauge automated core biopsy needle th rough a 13-gauge cannula, suspicious area beneath the lateral areo la was sampled. 2 cores were obtained. A radiopaque marker was placed . Postbiopsy biopsy mammogram confirms marker deployment. The area was bandaged. An icepack was applied. Discharge instructions were giv en to the patient. There are no apparent complications. VISHAL BLAKE MD Lisseth Vang MD IMG MAMMOGRAPHY ORDERABLES documented in this encounter Visit Diagnoses Diagnosis Lump or mass in breast documented in this encounter Care Teams Enamel Sprayer Relationship Specialty Start Date End Date Mehreen Johnston MD PhD PCP - General Family Practice 11/27/13 03/25/15 documented as of this encounter
--- OUTSIDE RECORDS SUMMARY | 2022-07-30 19:30 | XMS_ITS | Encounter Summary ---
:1945 Author Organization [facility] Address [address] [place] [address]. [place] [address] Care Team Providers Name Role Phone Mehreen Johnston MD PhD Primary Care Provider [phone] Encounter Details Date Type Department Care Team Description 12/06/2013 Radiant Appointment [facility] Breast [place], Lump or mass in Center Imaging MD Shanell breast 9 [facility] [address] [place] [address] 2nd Floor [place] [address] [phone] [place] [address] [phone] Social History Tobacco Use Types Packs/Day Years Used Date Smoking Tobacco: Never Smokeless Tobacco: Never Alcohol Use Standard Drinks/Week Comments Yes 0 (1 standard drink = 0.6 oz pure alcoho l) wine few times/wk Sex Assigned at Date Recorded Female 12/20/2018 4:10 PM CDT documented as of this encounter Progress Notes Shanell Baum MD - 12/07/2013 5:44 PM FLAKE CUTTER OPERATOR Quick Note: Bx results are negative. [phone] (home): left a message that her bx was negative. Shanell Baum MD E CUTTER OPERATOR documented in this encounter Plan of Treatment Upcoming Encounters Date Type Specialty Care Team Description 09/10/2022 Office Visit Internal Medicine LogeaisMargot MD [address]09 [facility] [address] [place] [address] (Wo rk) documented as of this encounter Procedures Procedure Name Priority Date/Time Associated Diagnosis Comme nts SURGICAL PATHOLOGY Routine 12/06/2013 11:30 AM Re sults for this EXAM FLAKE CUTTER OPERATOR procedure are i n the results section. US BREAST LEFT Routine 12/06/2013 11:18 AM Result s for this LIMITED 1-3 FLAKE CUTTER OPERATOR procedure are i n QUADRANTS the results section. documented in this encounter Results Surgical pathology exam (12/06/2013 11:30 AM FLAKE CUTTER OPERATOR) Component Value Ref Test Analysis Performed At [facility] Range Method Time Signature Copath Report Patient Name: IMELDA GARCIA MR#: [id number] Specimen #: [id number] Collected: 12/06/2013 Received: 12/06/2013 Reported: 12/07/2013 16:22 Ordering Phy(s): SHANELL BAUM Additional Phy(s): VISHAL Hernandes [facility] [place] SPECIMEN(S): Breast needle biopsy, left US guided FINAL DIAGNOSIS: Breast, left, ultrasound-guided core biopsy: ? - ??Benign breast tissue and fibrous stroma (see comm ent). COMMENT: Rare breast ducts are present. ??The majority of the specime n consists of fibrous stroma and adipose. ??Clinical correlation is requir ed to determine whether the biopsy findings are concordant with th e physical exam and imaging findings. I have personally reviewed all specimens and or slides, incl uding the listed special stains, and used them with my medical judgeme nt to determine the final diagnosis. Electronically signed out by: Odalis Hernandez M.D., [facility] CLINICAL HISTORY: The patient is a 68-year-old woman, status post reduction ma mmoplasty in the distant past, now with a left breast retroareolar lesion noted during clinical breast exam. ??Radiographic impression: canc er versus scar. ??Operative Procedure: ??Ultrasound-guided left breast core biopsy. GROSS: One formalin-filled container is received labeled with the p atient's name, Imelda Garcia, and medical record number. The container is labeled left breast. ??The specimen consi sts of two cylindrical fragments of luna fibrous tissue (1.5 and 2.2 cm in length x 0.1 cm in diameter), submitted entirely in cassette 1. A specimen is collected and placed in formalin on December 06 at 11:30 and delivered to the laboratory at 17:00. ??(ELEAZAR Chowdhury/leti 12/07/2013) MICROSCOPIC: Microscopic examination is performed. ??Multiple additional levels were examined, and support the above diagnosis. Major Miramontes DO, Fellow/Odalis Hernandez MD/roberto 12/07/2013 CPT Codes: A: 86360-KI8 TESTING LAB LOCATION: [facility], [address] ?? [id number] COLLECTION SITE: Client: [facility] Location: UNKO (B) Specimen Anatomical Collection Method Collection Time Receive d Time (Source) Location / / Volume Laterality 12/06/2013 11:30 12/06/2013 5:00 AM FLAKE CUTTER OPERATOR PM FLAKE CUTTER OPERATOR Narrative This result has an attachment that is no t available. Shanell Baum MD LAB - [facility] Performing Organization Address City/State/ZIP Code Phon e Number COPATH US Breast Unilateral lt (12/06/2013 11:18 AM FLAKE CUTTER OPERATOR) Anatomical Region Laterality Modality Breast Left Other Specimen (Source) Anatomical Location Collection Method / Collectio n Time Received Time / Laterality Volume Impressions 12/06/2013 11:18 AM FLAKE CUTTER OPERATOR IMPRESSION: BI-RADS CATEGORY: 4 - Suspicious Abnormality-Biopsy Should Be Considered Scarring from breast reduction surgery c ould have this appearance as well. RECOMMENDED FOLLOW-UP: Biopsy. Ultrasound-guided core needle biopsy lef t breast. The patient was given the results of the examination. VISHAL BLAKE MD Narrative 12/06/2013 11:18 AM FLAKE CUTTER OPERATOR Left breast ultrasound Comparisons: Mammograms November 27, December 10, 2011, October 08, 2010 History: Palpable lump beneath the left areola. Breast reduction surgery in the past. FINDINGS: ? Hypoechoic poorly margin ated linear masslike area 24 x 54 x 25 mm with anti-parallel long axis orientation is present beneath the lateral aspect of the left areola. ?? Procedure Note Vishal Blake MD - 12/06/2013 [...] results of the examination. VISHAL BLAKE MD Shanell Baum MD IMG US ORDERABLES documented in this encounter Visit Diagnoses Diagnosis Lump or mass in breast documented in this encounter Care Teams Licensed Sales Producer Relationship Specialty Start Date End Date Mehreen Johnston MD PhD PCP - General Family Practice 11/27/13 03/25/15 documented as of this encounter
--- OUTSIDE RECORDS SUMMARY | 2022-07-30 19:31 | XMS_ITS | Encounter Summary ---
:1945 Author Organization [place] Address [address] [place] [address]. [place] [address] Care Team Providers Name Role Phone Unavailable Primary Care Provider Unavailable Encounter Details Date Type Department Care Team Description 01/01/2013 Results Only UROLOGY [facility] AND Francisco Landeros MD [facility] [address] [place] [facility] [address] [place] [address] 4TH FLOOR, [address] [facility] EM[facility]ENCY DEPARTMENT, (Fax ) [place] [phone] Social History Tobacco Use Types Packs/Day Years [...] Visit Internal Medicine Margot Branham MD [address] [facility] [address]TH [place], [place] [address] (Wo rk) Scheduled Orders Name Type Priority Associated Diagnoses Order S chedule XR Percut/Peripheral Imaging Ordered : 01/01/2013 Urology Nrv Eval documented as of this encounter Visit Diagnoses Not on filedocumented in this encounter
--- OUTSIDE RECORDS SUMMARY | 2022-07-30 19:31 | XMS_ITS | Encounter Summary ---
:1945 Author Organization [facility] Address [address] [place] [address]. [place] [address] Care Team Providers Name Role Phone Unavailable Primary Care Provider Unavailable Reason for Referral - Closed Specialty Diagnoses / Procedures Referred By Contact Refer red To Contact Diagnoses Mixed incontinence urge and stress (male)([place] [address] [place] [address] [place], [place] [address] Referral ID Status Reason Start Date Expiration Date Visits Requ ested Visits Authorized [id number] Closed 08/31/2012 02/27/2013 1 1 FORCE MANAGEMENT CONSULTANT Reason for Visit Reason Comments RECHECK urodynamic Encounter Details Date Type Department Care Team Description 08/31/2012 Office Visit UROLOGY CLINIC AND Carlota Landeros Mix ed incontinence [facility] [address] (m janina)(female) CANCERS [place] [address] (Primary Dx) [place] [address] [address], [address] [place] [address] (Work) , [facility] [address] [place] [address] Social History Tobacco Use Types Packs/Day Years Used Date Smoking Tobacco: Never Smokeless Tobacco: Never Alcohol Use Standard Drinks/Week Comments No 0 (1 standard drink = 0.6 oz pure alcoho l) Sex Assigned at Date Recorded Female 12/20/2018 4:10 PM CDT documented as of this encounter Last Filed Vital Signs Vital Sign Reading Time Taken Comments Blood Pressure 159/74 08/31/2012 10:49 AM WORKFORCE MANAGEMENT CONSULTANT Pulse 75 08/31/2012 10:49 AM WORKFORCE MANAGEMENT CONSULTANT Temperature - - Respiratory Rate - - Oxygen Saturation - - Inhaled Oxygen Concentration - - Weight 85.3 kg (188 lb) 08/31/2012 10:49 AM WORKFORCE MANAGEMENT CONSULTANT Height 170.2 cm (5' 7) 08/31/2012 10:49 AM WORKFORCE MANAGEMENT CONSULTANT Body Mass Index 29.44 08/31/2012 10:49 AM WORKFORCE MANAGEMENT CONSULTANT documented in this encounter Patient Instructions Patient InstructionsWrEssence shipley LPN - 08/31/2012 11:28 AM CST Patient to return in 3 months FORCE MANAGEMENT CONSULTANT documented in this encounter Progress Notes Carlota Landeros MD - 08/31/2012 11:06 AM CST Reason for Visit: Cystoscopy Clinical Data: Ms. Ramona Sheikh is a 67 year old female with a hx of [...] and PVR was 150 ml. Repeat UDS are requested today to reassess voiding dysfunction. 1. Normal bladder capacity, 629 ml. 2. Good bladder compliance. 3. Maximum voiding Pdet 13 cm H2O; [facility] void[facility] with Valsalva voiding with maximum [...] ml. 6. Left hemipelvis InterStim lead on sales representative printing supplies imaging. A/P: 67 year old female with mixed incontinence. Discussed options of PT vs. Sling. She would like to proceed with PT. -schedule PT -f/u in 3-4 months to reassess. Thank you for allowing me to participate in the care of Ms. Ramona Sheikh and I will keep you updated on her progress. Carlota Landeros MD 25 min spent with patient, >50% in discussion. FORCE MANAGEMENT CONSULTANT documented in this encounter Plan of Treatment Upcoming Encounters Date Type Specialty Care Team Description 09/10/2022 Office Visit Internal Medicine Logeais, MD Margot [address] [place] [phone] (Wo rk) Scheduled Referrals Name Type Priority Associated Diagnoses Order S feliciale JAN Physical Therapy Referral Routine Mixed incontinence u rge Ordered: 08/31/2012 Referral and stress (male)(female) documented as of this encounter Visit Diagnoses Diagnosis Mixed incontinence urge and stress (male )(female) - Primary documented in this encounter
--- OUTSIDE RECORDS SUMMARY | 2022-07-30 19:31 | XMS_ITS | Encounter Summary ---
:1945 Author Organization [facility] Address [address] [place] [address]. [place] [address] Care Team Providers Name Role Phone Unavailable Primary Care Provider Unavailable Encounter Details Date Type Department Care Team Description 08/31/2012 Results Only [facility] Emerald Vang, Hospital Results [address] [facility] [address] [place], [place] [address] (Wo rk) Social History Tobacco Use Types [...] Visit Internal Medicine LogeaMargot man MD [address] [phone] (Wo rk) documented as of this encounter Procedures Procedure Name Priority Date/Time Associated Diagnosis Comme nts DX 08/31/2012 1:05 PM Results f or this WRIST/HEEL/RADIUS ELEMENTARY SCHOOL PROFESSIONAL procedure are in the results section. documented in this encounter Results Dexa wrist heel (08/31/2012 1:05 PM ELEMENTARY SCHOOL PROFESSIONAL) Anatomical Region Laterality Modality Dexa Other Specimen (Source) Anatomical Collection Method Collection Time Re ceived Time Location / / Volume Laterality 08/31/2012 1:05 PM ELEMENTARY SCHOOL PROFESSIONAL Narrative 09/06/2012 2:17 PM ELEMENTARY SCHOOL PROFESSIONAL For a complete report, see [employer] (Emerald murillo, [email or web address]-[id number].) ??If a hard copy i s needed or it you have questions regarding the report, please c all [phone]. ?? (Outpatient ??Imaging Center) ?? Procedure Note Anh Ascencio MD - 09/06/2012Forma tting of this note might be different from the original. For a complete report, see [employer]scripts (C moe lidia, EVB-Brat-Mrjiuyrhol.) If a hard copy is needed or it you have questions regarding the report, please c all [phone]. (Outpatient Imaging Center) Lisseth Vang MD IMG DEXA ORDERABLES documented in this encounter Visit Diagnoses Not on filedocumented in this encounter
--- OUTSIDE RECORDS SUMMARY | 2022-07-30 19:31 | XMS_ITS | Encounter Summary ---
:1945 Author Organization [facility] Address [address] [place] [address]. [place] [address] Care Team Providers Name Role Phone Unavailable Primary Care Provider Unavailable Reason for Visit Reason Onset Date Comments Other 09/09/2012 Patient called reque sting RX for proctofoam - to [facility]. Prescribed generic p er protocol. Encounter Details Date Type Department Care Team Description 09/09/2012 Telephone Colon and Rectal Stone, Adia Almonte, Other (Patient called Surgery Clinic RN requesting RX for Mota Niyahteen proctof oam - to [facility]. Prescribed 1st Floor, Clinic 1E generic per protocol.) [address] [place] [phone] Social History Tobacco Use Types Packs/Day Years [...] Internal Medicine Margot Branham MD [address] [phone] (Wo rk) documented as of this encounter Visit Diagnoses Not on filedocumented in this encounter
--- OUTSIDE RECORDS SUMMARY | 2022-07-30 19:31 | XMS_ITS | Encounter Summary ---
:1945 Author Organization [facility] Address [address] [facility] [place] [address] Care Team Providers Name Role Phone Unavailable Primary Care Provider Unavailable Reason for Visit Reason Comments Physical Encounter Details Date Type Department Care Team Description 08/16/2012 Office Visit [facility] Harshad Vang woman exam with routine gynecological exam (Primary Dx); [facility] MD Lisseth Hypertension; [place] [address] Osteopenia; [facility] [address] Atrophic vaginitis; [facility] [place], [place] Vaginal dryness; 3RD FLR,[address]YSS[address] [phone] Weight gain; [address] [phone] Varicose veins [facility] (Work) [place], [place] [address] [phone] Social History Tobacco Use Types Packs/Day Years Used Date Smoking Tobacco: Never Smokeless Tobacco: Never Alcohol Use Standard Drinks/Week Comments No 0 (1 standard drink = 0.6 oz pure alcoho l) Sex Assigned at Date Recorded Female 12/20/2018 4:10 PM CDT documented as of this encounter Last Filed Vital Signs Vital Sign Reading Time Taken Comments Blood Pressure 142/88 08/16/2012 4:21 PM JACK SPINNER Pulse 77 08/16/2012 4:21 PM JACK SPINNER Temperature - - Respiratory Rate - - Oxygen Saturation - - Inhaled Oxygen Concentration - - Weight 84.3 kg (185 lb 12.8 oz) 08/16/2012 3:30 PM JACK SPINNER Height 167.6 cm (5' 6) 08/16/2012 3:30 PM JACK SPINNER Body Mass Index 29.99 08/16/2012 3:30 PM JACK SPINNER documented in this encounter Progress Notes Lisseth Vang MD - 08/18/2012 10:20 PM JACK SPINNER Quick Note: No notes recorded by provider SPINNER Lisseth Vang MD - 08/18/2012 10:20 PM JACK SPINNER Quick Note: Labs are normal. Make sure you are taking your Vitamin D Lisseth Vang SPINNER Lisseth Vang MD - 08/15/2012 1:13 PM CST Ramona is a 66 year old female that presents today for annual exam: HPI: Wants her CRP tested. ROS: General: weight gain Head/Eyes: none Ears/Nose/Throat: [...] Ok Supplements: Vitamin D and EFA Seeing Cytotechnologist HCM: Colonosocopy (will check) Work: Works as a [employer] years. Will retire at age 71. 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 Landeros on 05/19/2011. 3) Hip replacement 09/09 2) Status post breast reduction 1996. 4) FAMILY HISTORY: Strong Family HX of colon Cancer. Past Medical History Diagnosis Date ??? Rhinitis ??? Fibroid uterus ??? Deviated nasal septum Dr Baer ENT ??? Hypertension ??? PONV (postoperative nausea and vomiting) ??? Osteoarthritis right hip Current Outpatient Prescriptions Medication Sig ??? Glucosamine-Chondroitin (GLUCOSAMINE CHONDR COMPLEX PO) Take 1 tablet by mouth. With MSN ??? estradiol (ESTRING) [address] 1 each vaginally every 3 months. ??? naproxen sodium (ANAPROX) 220 MG tablet Take 440 mg by mouth as needed. Indications: Mild to Moderate Pain. ??? psyllium 0.52 GM capsule Take 1 capsule by mouth daily. Take 2 caps daily ??? Calcium Citrate Malate-Vit D (CALCIUM + D) 250-100 MG-UNIT TABS Take 2 tablets by mouth 2 times daily. ??? Magnesium 200 MG TABS Take 4 tablets by mouth daily. ??? fish oil-omega-3 fatty acids (OMEGA 3) 1000 MG capsule Take 2 capsules by mouth 2 times daily. ??? OTHER MEDICAL SUPPLIES ROCÍO stockings knee length USE DIRECTED . ??? OTHER MEDICAL SUPPLIES ROCÍO Stockings thigh length ??? Cholecalciferol (VITAMIN D3) 1000 UNIT TABS Take 1 tablet by mouth daily. Allergies: Propofol, Morphine, Codeine, Nickel, Latex and Tape VITALS: Blood pressure 148/83, pulse 75, height 1.676 m (5' 6), weight 84.278 kg (185 lb 12.8 oz). Body mass index is 29.99 kg/(m^2). PHYSICAL EXAM: Constitutional: Overweight woman in no [...] wheezes or crackles, normal breath sounds. Breast: Symmetrical without visible distortion or swelling. No masses noted. No nipple inversion, nobreast dimpling or puckering. Axillary area without masses or lympadenapathy. Gastrointestinal: positive bowel sounds, nontender, no hepatosplenomegaly, no masses. No guarding orrebound. Genitourinary: External genitalia is normal appearance - dry mucosa not atrophic. Estring in place. No enlargement of the Bartholin or [place] glands. Urethra and bladder are non-tender. Vagina is without lesions or discharge. Normal epithelium, no anterior or posterior wall defects. ASSESSMENT: Ramona was seen today for physical. Diagnoses and associated orders for this visit: Well woman exam with routine gynecological exam - Annual exam - No pap smear needed - Schedule mammogram 12/2012 Hypertension - CRP Inflammation; Future - CRP Cardiac Risk; Future - Basic Metabolic Panel; Future - CBC with Platelets; Future - Start chlorthalidone (HYGROTEN) 25 MG tablet; Take 0.5 tablets by mouth daily. - Electrolytes in 6-3 weeks with BP check Osteopenia - Dexa hip/pelvis/spine*; Future Atrophic vaginitis - Continue with E-string Weight gain - 25- OH-Vitamin D; Future - TSH; Future SPINNER documented in this encounter Nursing Notes 08/16/2012 3:20 PM CST >> Addison Martinez LPN [place] Aug 16, 2012 3:31 PM Patient presents with: Physical Addison Martinez LPN documented in this encounter Plan of Treatment Upcoming Encounters Date Type Specialty Care Team Description 09/10/2022 Office Visit Internal Medicine Margot Branham MD [address] [place] [address] [phone] (Wo rk) documented as of this encounter Procedures Procedure Name Priority Date/Time Associated Diagnosis Comme nts VITAMIN D DEFICIENCY Routine 08/16/2012 4:37 PM Weight gain R esults for this SCREENING JACK SPINNER procedure are i n the results section. TSH Routine 08/16/2012 4:37 PM Weight gain Results f or this JACK SPINNER procedure are i n the results section. CRP INFLAMMATION Routine 08/16/2012 4:37 PM Hypertension Resul ts for this JACK SPINNER procedure are i n the results section. CRP CARDIAC RISK Routine 08/16/2012 4:37 PM Hypertension Resul ts for this JACK SPINNER procedure are i n the results section. BASIC METABOLIC PANEL Routine 08/16/2012 4:37 PM Hypertension Results for this JACK SPINNER procedure are i n the results section. CBC WITH PLATELETS Routine 08/16/2012 4:37 PM Hypertension Res ults for this JACK SPINNER procedure are i n the results section. documented in this encounter Results CBC with Platelets (08/16/2012 4:37 PM JACK SPINNER) athologist Signature WBC 7.0 4.0 - 11.0 [facility] 10e9/L LAB RBC Count 4.87 3.8 - 5.2 [facility] 10e12/L LAB Hemoglobin 14.7 11.7 - [facility] 15.7 g/dL LAB Hematocrit 43.4 35.0 - [facility] 47.0 % LAB MCV 89 78 - 100 [facility] fl LAB MCH 30.2 26.5 - [facility] 33.0 pg LAB MCHC 33.9 31.5 - [facility] 36.5 g/dL LAB RDW 12.8 10.0 - [facility] 15.0 % LAB Platelet Count 191 150 - 450 [facility] 10e9/L LAB Specimen Anatomical Collection Method Collection Time Receive d Time (Source) Location / / Volume Laterality Blood specimen 08/16/2012 4:37 PM 012 4:40 (specimen) JACK SPINNER PM JACK SPINNER Lisseth Vang MD LAB - BLOOD ORDERABLES Performing Organization Address City/State/ZIP Code Phon e Number [facility] [address] [place], [place] [phone] [place] [address] LAB Basic Metabolic Panel (08/16/2012 4:37 PM JACK SPINNER) athologist Signature Sodium 138 133 - 144 [facility] mmol/L LAB Potassium 4.0 3.4 - 5.3 [facility] mmol/L LAB Chloride 102 94 - 109 [facility] mmol/L LAB Carbon Dioxide 24 20 - 32 [facility] mmol/L LAB Anion Gap 11 6 - 17 [facility] mmol/L LAB Glucose 98 60 - 99 [facility] mg/dL LAB Comment: Non Fasting Urea Nitrogen 17 7 - 30 mg/dL [facility] Creatinine 0.80 0.52 - 1.04 mg/dL [facility] LAB GFR Estimate 72 >60 mL/min/1.7m2 [facility] LAB GFR Estimate If Black 87 >60 mL/min/1.7m2 F [facility] LAB Calcium 8.9 8.5 - 10.4 mg/dL [facility] E LAB Specimen Anatomical Collection Method Collection Time Receive d Time (Source) Location / / Volume Laterality Blood specimen 08/16/2012 4:37 PM 012 4:40 (specimen) JACK SPINNER PM JACK SPINNER Lisseth Vang MD LAB - BLOOD ORDERABLES Performing Organization Address City/[facility]/ZIP Code Phon e Number [address] [address] [facility] LAB TSH (08/16/2012 4:37 PM JACK SPINNER) athologist Signature TSH 1.15 0.4 - 5.0 [facility] mU/L LAB Specimen Anatomical Collection Method Collection Time Receive d Time (Source) Location / / Volume Laterality Blood specimen 08/16/2012 4:37 PM 012 4:40 (specimen) JACK SPINNER PM JACK SPINNER Lisseth Vang MD LAB - BLOOD ORDERABLES Performing Organization Address City/[facility]/ZIP Code Phon e Number [phone] [place] [address] LAB CRP Cardiac Risk (08/16/2012 4:37 PM JACK SPINNER) athologist Signature CRP Cardiac 4.3 mg/L [facility] LABS Comment: Reference Values: Low Risk: ? <1.0 mg/L Average Risk: ? 1.0-3.0 mg/L High Risk: ?>3.0 mg/L Acute Inflammation: >8.0 mg/L Specimen Anatomical Collection Method Collection Time Receive d Time (Source) Location / / Volume Laterality Blood specimen 08/16/2012 4:37 PM 012 4:40 (specimen) JACK SPINNER PM JACK SPINNER Lisseth Vang MD LAB - BLOOD ORDERABLES Performing Organization Address City/State/ZIP Code Phon e Number [facility] [address] [place] [address] [facility] LABS CRP Inflammation (08/16/2012 4:37 PM JACK SPINNER) athologist Signature CRP Inflammation <5.0 0.0 - 8.0 [facility] mg/L [place] LAB Specimen Anatomical Collection Method Collection Time Receive d Time (Source) Location / / Volume Laterality Blood specimen 08/16/2012 4:37 PM 012 4:40 (specimen) JACK SPINNER PM JACK SPINNER Lisseth Vang MD LAB - BLOOD ORDERABLES Performing Organization Address City/State/ZIP Code Phon e Number [facility] [address] [place], [place] [phone] [place] [address] LAB 25- OH-Vitamin D (08/16/2012 4:37 PM JACK SPINNER) athologist Signature Vitamin D 30 30 - 75 [facility] Deficiency ug/L [place] LABS screening Comment: Season, race, dietary intake, and treatm ent affect the concentration of 32-vbucobs-Mkkckcx D. Values may decrea se during winter [...] questions, pl ease contact the laboratory at [phone]. Specimen Anatomical Collection Method Collection Time Receive d Time (Source) Location / / Volume Laterality Blood specimen 08/16/2012 4:37 PM 012 4:40 (specimen) JACK SPINNER PM JACK SPINNER Lisseth Vang MD LAB - BLOOD ORDERABLES Performing Organization Address City/State/ZIP Code Phon e Number [facility] [address] [place], [place] [phone] [place] [address] LABS documented in this encounter Visit Diagnoses Diagnosis Well woman exam with routine gynecologic al exam - Primary Routine gynecological examination Hypertension Unspecified essential hypertension Osteopenia Disorder of bone and cartilage, unspecif ied Atrophic vaginitis Postmenopausal atrophic vaginitis Vaginal dryness Other specified symptom associated with female genital organs Weight gain Abnormal weight gain Varicose veins Asymptomatic varicose veins documented in this encounter
--- OUTSIDE RECORDS SUMMARY | 2022-07-30 19:31 | XMS_ITS | Encounter Summary ---
:1945 Author Organization [facility] Address [address] [place] [address]. [place] [address] Care Team Providers Name Role Phone Unavailable Primary Care Provider Unavailable Reason for Visit JAN Physical Therapy (Routine) - Closed Specialty Diagnoses / Procedures Referred By Contact Refer red To Contact Carlota Landeros M D [facility] Sports & [phone] Physical Therapy - [place], [place] [address] [place] [address] Phone: Fax: Referral ID Status Reason Start Date Expiration Date Visits Requ ested Visits Authorized JAN/HP/FWO Closed 10/04/2012 10/03/2013 20 18 Encounter Details Date Type Department Care Team Description 10/06/2012 Therapy Visit [facility] Fatemeh Silva PT Muscle weakness (Primary Dx); Rehabilitation Services [address] [facility] [place] ixed [facility] [address] [place] [phone] Social History Tobacco Use Types Packs/Day Years Used Date Smoking Tobacco: Never Smokeless Tobacco: Never Alcohol Use Standard Drinks/Week Comments No 0 (1 standard drink = 0.6 oz pure alcoho l) Sex Assigned at Date Recorded Female 12/20/2018 4:10 PM CDT documented as of this encounter Progress Notes Levy Ibrahim - 10/07/2012 9:48 AM CST Subjective: Medical allergies: yes (nickel, propofol, codine, morphine.). 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 Patient is working in normal job without restrictions. Primary job tasks include: Prolonged sitting. Red flags: None as reported by patient. Objective: System Physical Exam General ROS Assessment/Plan: Please refer to the daily flowsheet for treatment today, total treatment time and time spent performing 1:1 timed codes. STANT PLANT CONTROL OPERATOR Bibi Silva, PT - 10/06/2012 4:11 PM CST [facility] Initial Evaluation Subjective: Ramona Sheikh is a 67 year old female with a incontinence (mixed) condition. Condition occurred with: Insidious onset. Condition occurred: for unknown reasons. This is a chronic condition 08/31/2012:continution of mild stress incontinence, weak stream, and increasing urge Incontinence after Interstim placement, no previous PT. 1978 .1997 Laproscpic sx. Lifting, exercising, bending forwardresults in min-mod leakage, developing increasing urgency. 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 Atrophic vaginitis - using estrace cream 2 times/week and helping - no vaginal bleeding. 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 Phase II Interstim:Implant Stimulator and Leads sacral nerve by Dr. Landeros on 05/19/2011. 08/31/2012 Uroflowmetry. Sterile urethral catheterization for measurement of postvoid residual urine volume. Complex filling cystometrogram with measurement of bladder and rectal pressures. Complex voiding cystometrogram with measurement of bladder and rectal pressures.Electromyography of the pelvic floor during urodynamics.Flouroscopic imaging of the bladder during urodynamics, at least 3 views. Interpretation of urodynamics and flouroscopic imaging. . . Symptoms are exacerbated by sneezing and coughing Objective: System Pelvic Dysfunction Evaluation: Bladder/Pelvic Problems: Storage Problem: Urgency, stress incontinence and mixed incontinence Emptying Problem: Postvoid dribbling and incomplete emptying Diagnostic Tests: Pelvic Exam: 08/31 UA/Urine Sample: 08/31 Post Void Residual: 08/31 Urodynamics: 08/31 Laprascopy: 1998 Flexibility: normal Abdominal Wall: normal Pelvic Clock Exam: normal SI Provocation: normal External Assessment: Bearing Down/Coughing: Normal Tissue Symmetry: Normal Internal Assessment: Internal assessment pelvic: to be performed next session. SEMG Biofeedback: Semg biofeedback pelvic: to be assessed next session. Additional History: Delivery History: Number of Pregnancies: 1 Number of Live Births: 1 General ROS Assessment/Plan: Patient is a 67 year old female with pelvic complaints. Today's treatment focused on education in Urge suppression techniques and issuing/instruction in bladder diary. Internal assessment and assessment for biofeedback will be performed next session. Patient has the following significant findings with corresponding treatment plan. 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 STANT PLANT CONTROL OPERATOR documented in this encounter Plan of Treatment Upcoming Encounters Date Type Specialty Care Team Description 09/10/2022 Office Visit Internal Medicine LogeaisMargot MD [address] [place] [phone] (Wo rk) documented as of this encounter Procedures Procedure Name Priority Date/Time Associated Diagnosis Comme nts [facility] THERAPEUTIC Routine 10/07/2012 7:57 AM Muscle weakne ss ACTIVITIES ASSISTANT PLANT CONTROL OPERATOR Mixed incontinence [facility] THERAPEUTIC Routine 10/07/2012 7:57 AM Muscle weakne ss EXERCISES ASSISTANT PLANT CONTROL OPERATOR Mixed incontinence documented in this encounter Visit Diagnoses Diagnosis Muscle weakness - Primary Muscle weakness (generalized) Mixed incontinence Mixed incontinence urge and stress (male )(female) documented in this encounter
--- OUTSIDE RECORDS SUMMARY | 2022-07-30 19:31 | XMS_ITS | Encounter Summary ---
:1945 Author Organization [facility] Address [address] [place] [address]. [place] [address] Care Team Providers Name Role Phone Unavailable Primary Care Provider Unavailable Reason for Visit JAN Physical Therapy (Routine) - Closed Specialty Diagnoses / Procedures Referred By Contact Refer red To Contact Carlota Landeros M D [facility] Sports & [address] Physical Therapy - [place], [place] [address] [place] [address] Phone: Fax: Referral ID Status Reason Start Date Expiration Date Visits Requ ested Visits Authorized JAN/HP/FWO Closed 10/04/2012 10/03/2013 20 18 Encounter Details Date Type Department Care Team Description 02/14/2013 Therapy Visit [facility] Fatemeh Silva PT Muscle weakness (Primary Dx); Rehabilitation Services [address] [facility] ixed [facility] [address] [place] [phone] Social History Tobacco Use Types Packs/Day Years Used Date Smoking Tobacco: Never Smokeless Tobacco: Never Alcohol Use Standard Drinks/Week Comments No 0 (1 standard drink = 0.6 oz pure alcoho l) Sex Assigned at Date Recorded Female 12/20/2018 4:10 PM CDT documented as of this encounter Progress Notes Bibi Silva PT - 02/15/2013 5:38 AM CDT Subjective: HPI Objective: System Physical Exam General ROS Assessment/Plan: PROGRESS REPORT Progress reporting period is from IE to 02/14/2013. SUBJECTIVE Subjective: Completing HEP, want to check on some of the exercises; still having some stress incontinence grant when transitioning out of bed (few drops-about the size of a quarter; felt a little leakagewhile walking quickly to a fire drill. Reports less urge incontinence; continuation of weaker streamand post void dribbling. Initial Pain level: 0/10 The objective findings are from DOS 02/14/2013. OBJECTIVE Objective: Trial of HEP only during therapist GEO due to injury: pt demonstrated good management of diet and urge suppression techniques, and urge symptoms are well controlled. Stress incontinence- leaking a few drops (size of quarter per patient) present when changing positions in bed or rising from a chair. PFM activation/strength average as measured with internal sensor, has decreased by 7 microvolts (20 to 13). HEP focus is on training PFM during transitional movements. ASSESSMENT/PLAN Updated problem list and treatment plan: Diagnosis 1: Pelvic muscle weakness Decreased strength - therapeutic exercise and therapeutic activities Decreased proprioception - neuro re-education and therapeutic activities Impaired muscle performance - biofeedback and neuro re-education Decreased function - therapeutic activities STG/LTGs have been met or progress has been made towards goals: Yes (See Goal flow sheet completed today.) Assessment of Progress: Patient is meeting short term goals and is progressing towards half-way goals. Self Management Plans: Patient has been instructed in a home treatment program. Patient has been instructed in self management of symptoms. I have re-evaluated this patient and find that the nature, scope, duration and intensity of the therapy is appropriate for the medical condition of the patient. Ramona continues to require the following intervention to meet STG and LTG's: PT Recommendations: This patient would benefit from continued therapy. Frequency: 1 X week, once daily Duration: for 1 month Please refer to the daily flowsheet for treatment today, total treatment time and time spent performing 1:1 timed codes. documented in this encounter Plan of Treatment Upcoming Encounters Date Type Specialty Care Team Description 09/10/2022 Office Visit Internal Medicine Logeais, MD Margot [address] [place] [phone] (Wo rk) documented as of this encounter Procedures Procedure Name Priority Date/Time Associated Diagnosis Comme nts [facility] THERAPEUTIC Routine 02/15/2013 5:38 AM Muscle weakne ss ACTIVITIES CDT Mixed incontinence [facility] NEUROMUSCULAR Routine 02/15/2013 5:38 AM Muscle weak ness RE-EDUCATION CDT Mixed incontinence [facility] THERAPEUTIC Routine 02/15/2013 5:38 AM Muscle weakne ss EXERCISES CDT Mixed incontinence documented in this encounter Visit Diagnoses Diagnosis Muscle weakness - Primary Muscle weakness (generalized) Mixed incontinence Mixed incontinence urge and stress (male )(female) documented in this encounter
--- OUTSIDE RECORDS SUMMARY | 2022-07-30 19:31 | XMS_ITS | Encounter Summary ---
:1945 Author Organization [facility] Address [address] [place] [address]. [place] [address] Care Team Providers Name Role Phone Unavailable Primary Care Provider Unavailable Reason for Visit Reason Onset Date Comments Pre Visit Planning - Done 06/23/2012 Encounter Details Date Type Department Care Team Description 06/23/2012 Telephone UROLOGY CLINIC AND Carlota Landeros, Pre Visit Planning - [facility] MD Done [facility] [id number] [facility] [address], [address] [place] [address] [place] [address] Social History Tobacco Use Types Packs/Day Years Used Date Smoking Tobacco: Never Smokeless Tobacco: Never Alcohol Use Standard Drinks/Week Comments No 0 (1 standard drink = 0.6 oz pure alcoho l) Sex Assigned at Date Recorded Female 12/20/2018 4:10 PM CDT documented as of this encounter Miscellaneous Notes Telephone Encounter - Essence Joiner LPN - 06/23/2012 2:19 PM CDT Patient coming for interstim check and I called and left message that she needs to call rep conchis berumen and call me back if she needs to speak with lauren about bladder symptoms documented in this encounter Plan of Treatment Upcoming Encounters Date Type Specialty Care Team Description 09/10/2022 Office Visit Internal Medicine LogMargot sadler MD [address] [place] [phone] (Wo rk) documented as of this encounter Visit Diagnoses Not on filedocumented in this encounter
--- OUTSIDE RECORDS SUMMARY | 2022-07-30 19:31 | XMS_ITS | Encounter Summary ---
:1945 Author Organization [place] Address [address] [place] [address] Care Team Providers Name Role Phone Unavailable Primary Care Provider Unavailable Reason for Visit Reason Onset Date Comments Orders 10/20/2013 DEXA Encounter Details Date Type Department Care Team Description 10/20/2013 Telephone [facility] Nurse, Alyssa walker [facility] Orders (DEXA) [place] [address] [facility] [address],[facility] [address] [place], [place] [phone] Social History Tobacco Use Types Packs/Day Years Used Date Smoking Tobacco: Never Smokeless Tobacco: Never Alcohol Use Standard Drinks/Week Comments No 0 (1 standard drink = 0.6 oz pure alcoho l) Sex Assigned at Date Recorded Female 12/20/2018 4:10 PM CDT documented as of this encounter Miscellaneous Notes Telephone Encounter - Jorge Garg RN - 10/20/2013 1:41 PM CST Phone call to Ramona to let her know that the order for DEXA will be entered in her chart. She will need to call the Imaging [facility] in [facility] to schedule that appointment. I did tell her that if she does have the DEXA on the day of her appt the results most likely will not be available for Dr. Johnston. Most likely she will need to make a separate appt to discuss the findings. Ramona verbalized understanding of the information. X KERNEL DEVELOPER Telephone Encounter - Jorge Garg RN - 10/20/2013 1:41 PM CST Message copied by JORGE GARG on WedOct 20, 2013 1:41 PM ------ Message from: AURE BONILLA Created: WedOct 20, 2013 12:54 PM Regarding: PT asking for orders for DEXA Contact: Pt asking if you will put in orders for DEXA. Pt will have appt with Dr. Johnston on 11/27/13 and wouldlike DEXA done same day. Please call Pt back to let her know orders are in and the number for her toschedule. Pt can be reached at [phone] Thank you, cristi X KERNEL DEVELOPER documented in this encounter Plan of Treatment Upcoming Encounters Date Type Specialty Care Team Description 09/10/2022 Office Visit Internal Medicine LogeaMargot man MD [address] [id number] (Wo rk) documented as of this encounter Visit Diagnoses Diagnosis Osteopenia - Primary Disorder of bone and cartilage, unspecif ied documented in this encounter
--- OUTSIDE RECORDS SUMMARY | 2022-07-30 19:31 | XMS_ITS | Encounter Summary ---
:1945 Author Organization [facility] Address [address] [place] [address]. [place] [address] Care Team Providers Name Role Phone Unavailable Primary Care Provider Unavailable Reason for Visit Reason Comments RECHECK check interstim Encounter Details Date Type Department Care Team Description 06/29/2012 Office Visit UROLOGY CLINIC AND Carlota Landeros Uri nary retention (Primary Dx); [facility] Urgency of urination [facility] UROLOG[facility] [address] CANC[address] [place] [address] [place], [place] BUILDING [address] [address]TH FLOOR, [address] [facility] , [facility] [address] [place] [address] Social History Tobacco Use Types Packs/Day Years Used Date Smoking Tobacco: Never Smokeless Tobacco: Never Alcohol Use Standard Drinks/Week Comments No 0 (1 standard drink = 0.6 oz pure alcoho l) Sex Assigned at Date Recorded Female 12/20/2018 4:10 PM CDT documented as of this encounter Last Filed Vital Signs Vital Sign Reading Time Taken Comments Blood Pressure 142/85 06/29/2012 3:28 PM CDT Pulse 72 06/29/2012 3:28 PM CDT Temperature - - Respiratory Rate - - Oxygen Saturation - - Inhaled Oxygen Concentration - - Weight 84.6 kg (186 lb 9.6 oz) 06/29/2012 3:28 PM CDT Height 170.2 cm (5' 7) 06/29/2012 3:28 PM CDT Body Mass Index 29.23 06/29/2012 3:28 PM CDT documented in this encounter Progress Notes Carlota Landeros MD - 06/29/2012 3:36 PM CDT Reason for Visit: f/u on interstim from 05/19/11 Clinical data: Ms. Sheikh is a 65 y.o female with hx of urinary urgency and UI who underwent interstim. She returns today in f/u. She is doing well. Her accidents have become very rare to non-existent. She feels like she is emptying better but she is not certain and would really like to repeat the UDS as she feels her stream is still slow. RU today on bladder scan by nursin cc A/P: 65 y/o female with the above -Schedule video UDS -f/u afterwards to discuss. Thank you for allowing me to participate in the care of Ms. Ramona Sheikh and I will keep you updated on her progress. Carlota Landeros MD 15 min spent with patient, >50% in discussion. documented in this encounter Plan of Treatment Upcoming Encounters Date Type Specialty Care Team Description 09/10/2022 Office Visit Internal Medicine Margot Branham MD [address] [phone] (Wo rk) documented as of this encounter Visit Diagnoses Diagnosis Urinary retention - Primary Retention of urine, unspecified Urgency of urination documented in this encounter
--- OUTSIDE RECORDS SUMMARY | 2022-07-30 19:31 | XMS_ITS | Encounter Summary ---
:1945 Author Organization [facility] Address [address] [place] [address]. [place] [address] Care Team Providers Name Role Phone Unavailable Primary Care Provider Unavailable Reason for Visit Reason Onset Date Comments Previsit 12/13/2012 Encounter Details Date Type Department Care Team Description 12/13/2012 PRE VISIT [facility] Carlota Landeros MD Previsit [facility] [id number] [place] [address] [address] [place] [id number] [place] [address] [place] [address] [place], [place] [address] [phone] Social History Tobacco Use Types Packs/Day Years Used Date Smoking Tobacco: Never Smokeless Tobacco: Never Alcohol Use Standard Drinks/Week Comments No 0 (1 standard drink = 0.6 oz pure alcoho l) Sex Assigned at Date Recorded Female 12/20/2018 4:10 PM CDT documented as of this encounter Miscellaneous Notes Telephone Encounter - Jena Steiner - 12/13/2012 10:27 AM CDT Chart reviewed prior to patients upcoming appointment. All necessary information updated and reviewed. Patients following up with clinic for PT All lab results, imaging studies, procedure information and pathology reports in epic or have received records Yes Reminder call given No (If patient has not been seen in the [facility] in the last 6 months) Jena Matias CMA documented in this encounter Plan of Treatment Upcoming Encounters Date Type Specialty Care Team Description 09/10/2022 Office Visit Internal Medicine Logeais, Margot, MD [address] [address] (Wo rk) documented as of this encounter Visit Diagnoses Not on filedocumented in this encounter
--- OUTSIDE RECORDS SUMMARY | 2022-07-30 19:31 | XMS_ITS | Encounter Summary ---
:1945 Author Organization [place] Address [address] [place] [address]. [place] [address] Care Team Providers Name Role Phone Unavailable Primary Care Provider Unavailable Reason for Visit Reason Onset Date Comments Pre Visit Planning - Unable To Reach 08/19/2012 Lef t Voicemail Message. Encounter Details Date Type Department Care Team Description 08/19/2012 Telephone UROLOGY CLINIC AND Lo [place]rell Pre Visit Planning - [facility] Teran Unable To Reach (Left AND UROLOGIC CANCERS [address] [facility] Voicemail Message.) [facility] 4TH FLOOR, [address], [facility] [address] [place] [address] Social History Tobacco Use Types Packs/Day Years Used Date Smoking Tobacco: Never Smokeless Tobacco: Never Alcohol Use Standard Drinks/Week Comments No 0 (1 standard drink = 0.6 oz pure alcoho l) Sex Assigned at Date Recorded Female 12/20/2018 4:10 PM CDT documented as of this encounter Miscellaneous Notes Telephone Encounter - Ramona Smith, RN - 08/19/2012 1:05 PM CST Called patient about upcoming urodynamics appointment on 08/31/12 at 0800. Pt unable to be reached and message left on voicemail with a reminder of appointment date and time. Pt asked to call [facility] back at [phone] option #2 to go over pre visit planning prior to appointment or call if need for cance llation occurs. Ramona Smith RN TECHNICIAN documented in this encounter Plan of Treatment Upcoming Encounters Date Type Specialty Care Team Description 09/10/2022 Office Visit Internal Medicine LogeaMargot man MD [address] [address] (Wo rk) documented as of this encounter Visit Diagnoses Not on filedocumented in this encounter
--- OUTSIDE RECORDS SUMMARY | 2022-07-30 19:31 | XMS_ITS | Encounter Summary ---
:1945 Author Organization [facility] Address [address] [place] [address]. [place] [address] Care Team Providers Name Role Phone Unavailable Primary Care Provider Unavailable Encounter Details Date Type Department Care Team Description 04/21/2012 Office Visit Physicians, Primary Danish Voss nxiety state, unspecified; [facility] N, PhD LP Tinnitus of both ears 3rd Floor, Clinic 3A [address] [facility] Mota Wangensteen [facility] [address] [address] [place], [place] (Work) [address] [phone] Social History Tobacco Use Types Packs/Day Years Used Date Smoking Tobacco: Never Smokeless Tobacco: Never Alcohol Use Standard Drinks/Week Comments No 0 (1 standard drink = 0.6 oz pure alcoho l) Sex Assigned at Date Recorded Female 12/20/2018 4:10 PM CDT documented as of this encounter Progress Notes Danish Voss, LP - 04/21/2012 1:15 PM CDT Health Psychology Department of Medicine [facility] Mail Code 741 Mary Jo Leary, Ph.D., L.P. [address] [place] [address] Danish Voss, Ph.D., A.B.P.P., [place] [address] Trudi Fajardo, Ph.D., L.P. Confidential Summary of Psychological Evaluation* REFERRAL SOURCE: Vanessa Mcgregor MD and Steven Navarrete, [facility]. REASON FOR REFERRAL: Ms. Sheikh is a 66-year-old woman referred for psychological consultation to help her in coping with tinnitus. HISTORY OF PRESENTING CONCERN: MS. Sheikh reports that she has been dealing with the tinnitus for many years, at least 10. She states that she has 2 types, one is like highly frequency sound. The sound of the other is more of a deep sound such as a plane coming in for a landing or a whooshing sound.She reports that it has become more concerning over the past 3 years. She states that she tends to notice it more at night or when it is very quiet. She has used a masking machine of some sort in the past though when it broke, she did not replace it. She is willing to consider trying a radio at night or some kind of white noise generator at night. Ms. Sheikh is not sure why she has developed the tinnitus. She states that she attended some loud concerts in 1971 and 1974 for [place] and the [employer]. She acknowledges having mowed a lawn with a power mower without ear protection as a teenager but otherwise is not aware of the circumstances.She is aware that she is losing her hearing, though does not use hearing aids at this time. MEDICAL HISTORY: Ms. Sheikh has had some urinary issues and high blood pressure. She is being evaluated at [facility] for cardiovascular functioning. In addition, she has osteoarthritis, osteopenia and a strong family history of colon cancer. She acknowledges that she is not exercising though she is willing to begin an exercise program. She states that she does not use alcohol or tobacco products. She drinks one cup of coffee per day and is considering cutting back to see whether it might have an effect on the tinnitus. SOCIAL HISTORY: Ms. Sheikh grew up in [place], [place]. She is the 5th of 6 children in her family of origin. Both parents are . She took care of her mother for nearly a year before she 3 years ago. She was also one of the siblings who was very involved with settling the estate whichis apparently quite stressful and has created additional rifts in the family. Ms. Sheikh was and is now . Her remarried and had a daughter. She is on friendly terms with that whole family. She has a 33-year-old son, Adi, who is , lives [facility] and is working as an artist color separation. Ms. 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 She has worked in [place] and in [employer]. She has been with the [employer] for the past 24 years. She has several frustrations related to that work. 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 She lives alone. She is not dating. PSYCHIATRIC HISTORY: Ms. Sheikh works with a well-respected psychologist in the community, Kallie Linares, PhD. She has been seeing her weekly or every other week for a long period of time. FAMILY HISTORY: Remarkable for a nephew's suicide a few years ago. He apparently also had tinnitus. She wonders whether some of her siblings might have significant personality disorder, including borderline personality disorder. MENTAL STATUS EXAMINATION: Ms. Sheikh was interviewed for approximately 1 hour. She is alert and oriented, well dressed. Speech is of normal rate and rhythm. Thoughts are linear. She denies feeling depressed, though acknowledges frustration at times feeling overwhelmed. She is able to enjoy activities. She denies feeling hopeless, helpless, worthless or guilty. She denies problems with energy, though she had been exhausted the end of the school year. She indicates sleep is good and she denies problems with concentration, memory or decision- making. Her appetite has been stable, though she is trying to lose weight and has been successful at losing about 10 pounds in the past 6 weeks. She indicates that she has no psychomotor slowing. She denies homicidal and suicidal ideation. She denies hallucinations or delusions. We had a lengthy discussion about potential strategies to help coping with the tinnitus. She seemed to find it helpful. Rapport was positive. The discussion included a discussion of distraction and absorption as processes that may help her to selectively transfer her focus from her symptoms to more pleasant activities such as listening music and reading. IMPRESSION: Ms. Sheikh is a delightful woman with long-term tinnitus who is getting her primary mental health care elsewhere and wanted to talk about approaches for dealing with the tinnitus. DIAGNOSES: Murray I Anxiety disorder, not otherwise specified (300.00). Murray II No diagnosis. Murray III Tinnitus, hypertension, osteopenia, arthritis. 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 Murray V Global Assessment of Functioning Scale: 75-80 (current) PLAN: 1. Ms. Sheikh will call me if wishing to consult further. 2. We discussed listening to a CD or music in the evenings while reading before going to bed which is the time that the tinnitus bothers her the most. We also discussed the possibility of getting another masking machine or using the radio when she is trying to fall asleep. 3. She will consider cutting back on caffeine to see whether that helps. 4. She will continue to meet with her therapist. 5. She is encouraged to read Your Perfect Right for help with some of the work- related stressors. Danish Voss, Ph.D., A.B.P.P., L.P. Director, Health Psychology cc:Vanessa Mcgregor M.D. Sharmaine Navarrete, [facility] Mehreen Johnston M.D. *In accordance with the Rules of the [place] [employer], it is noted that psychological descriptions and scientific procedures underlying psychological evaluations have limitations. Absolutepredictions cannot be made based on information in this report. documented in this encounter Plan of Treatment Upcoming Encounters Date Type Specialty Care Team Description 09/10/2022 Office Visit Internal Medicine LogMargot sadler MD [address] [place] [phone] (Wo rk) documented as of this encounter Visit Diagnoses Diagnosis Anxiety state, unspecified Tinnitus of both ears Unspecified tinnitus documented in this encounter
--- OUTSIDE RECORDS SUMMARY | 2022-07-30 19:31 | XMS_ITS | Encounter Summary ---
:1945 Author Organization [place] Address [address] [facility] [place] [address] Care Team Providers Name Role Phone Unavailable Primary Care Provider Unavailable Reason for Visit Reason Onset Date Comments Refill Request 09/26/2013 Estring Encounter Details Date Type Department Care Team Description 09/26/[address] [facility] Women's Nurse, Ump Whs Refill Request (Estring) Clinic [place] [address] [place] [address] Professional Bldg [facility] [address] 3rd [facility] [address] [place], [place] [phone] Social History Tobacco Use Types Packs/Day Years Used Date Smoking Tobacco: Never Smokeless Tobacco: Never Alcohol Use Standard Drinks/Week Comments No 0 (1 standard drink = 0.6 oz pure alcoho l) Sex Assigned at Date Recorded Female 12/20/2018 4:10 PM CDT documented as of this encounter Miscellaneous Notes Telephone Encounter - Parul Zeng RN - 09/26/2013 9:13 AM WELT INSOLE CHANNELER Last well woman exam with Dr. Vang on 08/16/2012. Taking Estring for atrophic vaginitis. Sent refill x 1. Patient needs follow up appointment before further refills can be given. Left VM for patient reminding to schedule for Well Woman exam. INSOLE CHANNELER documented in this encounter Plan of Treatment Upcoming Encounters Date Type Specialty Care Team Description 09/10/2022 Office Visit Internal Medicine LogeaisMargot MD [address] [facility] 4TH [place], [place] [phone] (Wo rk) documented as of this encounter Visit Diagnoses Diagnosis Vaginal dryness - Primary Other specified symptom associated with female genital organs documented in this encounter
--- OUTSIDE RECORDS SUMMARY | 2022-07-30 19:31 | XMS_ITS | Encounter Summary ---
:1945 Author Organization [place] Address [address] [place] [address]. [place] [address] Care Team Providers Name Role Phone Unavailable Primary Care Provider Unavailable Reason for Visit Reason Comments RECHECK F/U hemorrhoids and anal fis sure Encounter Details Date Type Department Care Team Description 05/02/2012 Office Visit Colon and Rectal Evonne Hamilton emorrhoids Surgery Clinic Theresa Huff [facility] [address] [facility] (Primary Dx) Building [address] 1[address] Floor, Clinic [address] [place] [address] Social History Tobacco Use Types Packs/Day Years Used Date Smoking Tobacco: Never Smokeless Tobacco: Never Alcohol Use Standard Drinks/Week Comments No 0 (1 standard drink = 0.6 oz pure alcoho l) Sex Assigned at Date Recorded Female 12/20/2018 4:10 PM CDT documented as of this encounter Last Filed Vital Signs Vital Sign Reading Time Taken Comments Blood Pressure 144/73 05/02/2012 9:22 AM CDT Pulse 67 05/02/2012 9:22 AM CDT Temperature - - Respiratory Rate - - Oxygen Saturation 96% 05/02/2012 9:22 AM CDT Inhaled Oxygen Concentration - - Weight 86.6 kg (191 lb) 05/02/2012 9:22 AM CDT Height 170.2 cm (5' 7.01) 05/02/2012 9:22 AM CDT Body Mass Index 29.91 05/02/2012 9:22 AM CDT documented in this encounter Progress Notes Theresa Hamilton MD - 05/08/2012 11:50 AM CDT Colon and Rectal Surgery Follow-Up Clinic Note Date: 05/08/2012 Referring provider: Lisseth Vang MD [facility] [address] [facility] [address] [place] [address] RE: Ramona Sheikh : 1945 MUSA: 05/02/2012 HISTORY OF PRESENT ILLNESS: Ms. Sheikh is a 66-year-old female with perianal discomfort. I last saw her in 2009, at which point I had performed colonoscopy on her. This was normal showing some hemorrhoids. Prior to that, I saw her multiple times in 2009 and 2008. INTERIM HISTORY: Overall her symptoms have been primarily perianal discomfort. She did undergo banding for her internal hemorrhoids. She did have prolapse of tissue and occasional bleeding with this. She had a colonoscopy in 2006. Her mother has a history of colon cancer and, therefore, she is on a 5-year regimen. Her last 1 was in 2009 and repeat should be in 2014. Over the last few months, she had some blood that would go on for a day or so. It will hurt for a few hours and then after awhile for a few days; it is a small amount of blood and then stops. Over the summer this has increased. She has had this 4 times and this is significantly more than during the school year. This will happen 1-2 times per month and she is continued on MiraLAX, which will help her to have softer bowel movements. She has some skin discomfort. She has been using Balneol and she has also noted some thinning of her vaginal skin. Otherwise, she has no systemic complaints. She does have some difficulty with hygiene in the perianal area. PLEASE SEE BELOW FOR PHYSICAL EXAMINATION, REVIEW OF SYSTEMS AND OTHER HISTORY. IMPRESSION AND PLAN: This is a 66-year-old female with perianal discomfort. She has had a perianal discomfort and bleeding. She has had a colonoscopy. She has been banded before. On examination she does have an anterior tag as well as minimal internal hemorrhoidal disease but nothing that appears suitable for banding. 1. She is due for colonoscopy in 2014. 2. We will try measures to preserve her skin. She is only using Balneol; perhaps using Calmoseptine or other barrier ointment will be helpful or Calmol 4 suppositories. 3. She will continue on MiraLAX. I encouraged her to do this to have abnormal bowel habits to see ifthis is helpful. She will follow up with me on an as needed basis to assess her progress. Total time with patient was 15 minutes, over half of it was spent counseling the patient. PLEASE SEE NOTE BELOW FOR PHYSICAL EXAMINATION, REVIEW OF SYMPTOMS, AND OTHER HISTORY. Theresa Hamilton MD Colon and Rectal Surgery Attending Department of Surgery [facility] Medical history: Past Medical History Diagnosis Date ??? Rhinitis ??? Fibroid uterus ??? Deviated nasal septum Dr Baer ENT ??? Hypertension ??? PONV (postoperative nausea and vomiting) ??? Osteoarthritis right hip Surgical history: Past Surgical History Procedure Date ??? C/section, classical 1978 , Classical ??? Cl aff surgical pathology 1989 Breast Reduction ??? Breast biopsy, rt/lt Breat Biopsy RT/LT ??? Hc colonoscopy thru stoma, diagnostic NL ??? Surgical history of - ? Nasal passages microwaved. Dr Baer ENT ??? Mammoplasty reduction ??? Implant stimulator and leads sacral nerve (stage one and two) 05/19/2011 Procedure:IMPLANT STIMULATOR AND LEADS SACRAL NERVE (STAGE ONE AND TWO); Surgeon:ALEX ACUÑA;Location:[facility] Problem list: Patient Active Problem List Diagnoses Date Noted ??? Hemorrhoids 05/02/2012 ??? Anal fissure 05/02/2012 ??? Anxiety state, unspecified 04/21/2012 ??? Tinnitus of both ears 04/21/2012 ??? Urinary retention 04/02/2011 ??? Urgency of urination 04/02/2011 ??? Mixed incontinence urge and stress (male)(female) 04/02/2011 ??? CARDIOVASCULAR SCREENING; LDL GOAL LESS THAN 130 08/03/2010 ??? Elevated Blood Pressure Reading without Diagnosis of Hypertension 09/23/2009 Medications: Current Outpatient Prescriptions Medication Sig ??? Glucosamine-Chondroitin [...] Take 1 tablet by mouth daily. Allergies: Allergies Allergen Reactions ??? Propofol Other (See Comments) and Nausea and Vomiting Extreme vertigo and nausea/vomiting ??? Codeine Nausea and Vomiting ??? Morphine Nausea and Vomiting ??? Latex Rash ??? Nickel Rash ??? Tape (Adhesive Tape) Rash Family history: Family History Problem Relation Age of Onset ??? Colon CA Mother colon polyps, age 93 ??? Cardiovascular Father CHF age 79, hx of PE and HTN ??? Hypertension Father ??? Cancer Maternal Grandmother 84 of pancreatic cancer ??? Heart attack Maternal Grandfather 82 of [place] ??? Cardiovascular Paternal Grandmother age 65 of heart problems ??? Pneumonia Paternal Grandfather age 70 after flu Social history: History Substance Use Topics ??? Smoking status: Never Smoker ??? Smokeless tobacco: Never Used ??? Alcohol Use: No Marital status: single. 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 Nursing Notes: >> Adia Cabral RN Mon May 02, 2012 9:48 AM COLORECTAL-SPECIFIC REVIEW OF SYSTEMS: Abdominal Pain? No Vomiting blood? No Constipation? Yes Diarrhea? No Blood in stool? No Painful bowel movements? No Pelvic pain? No Anal pain? No Liver disease? No Number of bowel movements daily? 0-2 Previous colonoscopy? Yes, date: Findings: Where? OTHER REVIEW OF SYSTEMS: Constitutional: Weight change? No Fevers or chills? No Hematologic: Anemia/Other Blood Problems? No Frequent bruising? No Blood clots in legs or lungs? No Endocrine: Thyroid problems? No Diabetes? No HEENT: Loss of vision? No Diminished hearing? No Throat or sinus problems? No Cardiac: Chest pain? No Heart attack? No High cholesterol? No Palpitations? No High Blood Pressure? No Leg Swelling? No Respiratory: Difficulty breathing? No Sleep apnea? No Genitourinary/Renal: Postmenopausal? Yes Urinary tract infections? No Kidney problems? question Urinary incontinence? Yes Musculoskeletal/Dermatologic: Joint problems or back problems? Yes arthritis Skin problems? No Neurologic: Headaches? No Stroke? No Seizure/Nerve problems? No Psychiatric: Depression? No Anxiety? No >> MILLIE VIVIANE WedMay 02, 2012 9:22 AM Patient presents with: RECHECK - F/U hemorrhoids Physical Examination: BP 144/73 Pulse 67 Ht 1.702 m (5' 7.01) Wt 86.637 kg (191 lb) BMI 29.91 kg/m2 SpO2 96% General: Pleasant, no acute distress Perianal external examination: Perianal skin: Intact with no excoriation or lichenification. Lesions: No evidence of an external lesion, nodularity, or induration in the perianal region. Eversion of buttocks: There was not evidence of an anal fissure. Details: N/A. Skin tags or external hemorrhoids: small anterior tag. No excoriation associated. Digital rectal examination: Was performed. Sphincter tone: Good. Palpable lesions: No. Other: None. Bimanual examination: was not performed. Anoscopy: Was performed. Hemorrhoids: Some minimal internal hemorrhoids. Non bleeding, non thrombosed Lesions: No. documented in this encounter Nursing Notes 05/02/2012 8:15 AM CDT >> Adia Cabral RN WedMay 02, 2012 9:48 AM COLORECTAL-SPECIFIC REVIEW OF SYSTEMS: Abdominal Pain? No Vomiting blood? No Constipation? Yes Diarrhea? No Blood in stool? No Painful bowel movements? No Pelvic pain? No Anal pain? No Liver disease? No Number of bowel movements daily? 0-2 Previous colonoscopy? Yes, date: Findings: Where? OTHER REVIEW OF SYSTEMS: Constitutional: Weight change? No Fevers or chills? No Hematologic: Anemia/Other Blood Problems? No Frequent bruising? No Blood clots in legs or lungs? No Endocrine: Thyroid problems? No Diabetes? No HEENT: Loss of vision? No Diminished hearing? No Throat or sinus problems? No Cardiac: Chest pain? No Heart attack? No High cholesterol? No Palpitations? No High Blood Pressure? No Leg Swelling? No Respiratory: Difficulty breathing? No Sleep apnea? No Genitourinary/Renal: Postmenopausal? Yes Urinary tract infections? No Kidney problems? question Urinary incontinence? Yes Musculoskeletal/Dermatologic: Joint problems or back problems? Yes arthritis Skin problems? No Neurologic: Headaches? No Stroke? No Seizure/Nerve problems? No Psychiatric: Depression? No Anxiety? No >> MILLIE VIVIANE Johns May 02, 2012 9:22 AM Patient presents with: RECHECK - F/U hemorrhoids documented in this encounter Plan of Treatment Upcoming Encounters Date Type Specialty Care Team Description 09/10/2022 Office Visit Internal Medicine Margot Branham MD [address] [place] [address] [phone] (Wo rk) documented as of this encounter Visit Diagnoses Diagnosis External hemorrhoids with complication - Primary External hemorrhoids with other complica tion documented in this encounter
--- OUTSIDE RECORDS SUMMARY | 2022-07-30 19:31 | XMS_ITS | Encounter Summary ---
:1945 Author Organization [place] Address [facility] [place] [address] Care Team Providers Name Role Phone Unavailable Primary Care Provider Unavailable Reason for Visit Reason Onset Date Comments Medication Request 12/12/2012 Encounter Details Date Type Department Care Team Description 12/12/2012 Telephone [facility] Women's Nurse, p Whs Medication Request Clinic [place] [id number] [address] Professional Bldg [facility] [address],[place] [address] [place] [phone] Social History Tobacco Use Types Packs/Day Years Used Date Smoking Tobacco: Never Smokeless Tobacco: Never Alcohol Use Standard Drinks/Week Comments No 0 (1 standard drink = 0.6 oz pure alcoho l) Sex Assigned at Date Recorded Female 12/20/2018 4:10 PM CDT documented as of this encounter Miscellaneous Notes Telephone Encounter - Brooke Oliveros RN - 12/12/2012 4:24 PM CDT Message copied by BROOKE OLIVEROS on WedDec 12, 2012 4:24 PM ------ Message from: LUIS ALBERTO GREER Created: WedDec 12, 2012 3:43 PM Regarding: Med request Contact: [facility] She needs a new script for this, the pharmacy told told her they couldn't fax for this. Thanks! [place]. Please DO NOT send this message and/or reply back to sender. Call Center Representatives DO NOT respond to messages. documented in this encounter Plan of Treatment Upcoming Encounters Date Type Specialty Care Team Description 09/10/2022 Office Visit Internal Medicine Margot Branham MD [address] [place] [address] [phone] (Wo rk) documented as of this encounter Visit Diagnoses Not on filedocumented in this encounter
--- OUTSIDE RECORDS SUMMARY | 2022-07-30 19:31 | XMS_ITS | Encounter Summary ---
:1945 Author Organization [place] Address [address] [place] [address]. [place] [address] Care Team Providers Name Role Phone Unavailable Primary Care Provider Unavailable Reason for Visit Reason Onset Date Comments Erroneous encounter-disregard 08/30/2012 Error Encounter Details Date Type Department Care Team Description 08/30/2012 Telephone [facility] [place] Teran encounter-disregard AND UROLOGIC CANCERS [address] [facility] (Error) [facility] 4TH FLOOR, [address] [place] [address] [place] [address] Social History Tobacco Use Types Packs/Day Years Used Date Smoking Tobacco: Never Smokeless Tobacco: Never Alcohol Use Standard Drinks/Week Comments No 0 (1 standard drink = 0.6 oz pure alcoho l) Sex Assigned at Date Recorded Female 12/20/2018 4:10 PM CDT documented as of this encounter Miscellaneous Notes Telephone Encounter - Ramona Smith RN - 08/30/2012 11:38 AM CST Opened in error. [employer] documented in this encounter Plan of Treatment Upcoming Encounters Date Type Specialty Care Team Description 09/10/2022 Office Visit Internal Medicine LogeaMargot man MD [address] [facility] [address]TH [place] [address] (Wo rk) documented as of this encounter Visit Diagnoses Not on filedocumented in this encounter
--- OUTSIDE RECORDS SUMMARY | 2022-07-30 19:31 | XMS_ITS | Encounter Summary ---
:1945 Author Organization [place] Address [address] [place] [address]. [place] [address] Care Team Providers Name Role Phone Unavailable Primary Care Provider Unavailable Reason for Visit Reason Onset Date Comments Appointment 06/27/2013 Needs to be reschedu led Encounter Details Date Type Department Care Team Description 06/27/2013 Telephone [facility] Carlota Landeros, Appo intment (Needs to Clinic Evette Combs MD be rescheduled) [id number] [place] [address] [place], [place] [address] [place], [place] [phone] (Wo rk) Social History Tobacco Use Types Packs/Day Years Used Date Smoking Tobacco: Never Smokeless Tobacco: Never Alcohol Use Standard Drinks/Week Comments No 0 (1 standard drink = 0.6 oz pure alcoho l) Sex Assigned at Date Recorded Female 12/20/2018 4:10 PM CDT documented as of this encounter Miscellaneous Notes Telephone Encounter - Nubia Duque RN - 07/14/2013 9:23 AM CDT Per documentation, appointment rescheduled via call center to 10/09/13 at 4:30pm. Nubia Duque RN Telephone Encounter - Jena Steiner - 06/27/2013 1:35 PM CDT LM for paient that appintment needs to be rescheduled for 10/02 at 4. Patient may be scheduled with the call center in available return slots. Jena Matias CMA documented in this encounter Plan of Treatment Upcoming Encounters Date Type Specialty Care Team Description 09/10/2022 Office Visit Internal Medicine LogeaisMargot MD [address] [phone] (Wo rk) documented as of this encounter Visit Diagnoses Not on filedocumented in this encounter
--- OUTSIDE RECORDS SUMMARY | 2022-07-30 19:31 | XMS_ITS | Encounter Summary ---
:1945 Author Organization [place] Address [address] [place] [address]. [place] [address] Care Team Providers Name Role Phone Unavailable Primary Care Provider Unavailable Reason for Visit Reason Onset Date Comments Pre Visit Planning - 2 Attempts 08/30/2012 Left Voi cemail Message Encounter Details Date Type Department Care Team Description 08/30/2012 Telephone [facility] [place] Pre Visit Planning - 2 [facility] Teran Attempts (Left AND UROLOGIC CANCERS [address] [facility] Voicemail Message) [facility] 4TH FLOOR, [address] [place] [address] Social History Tobacco Use Types Packs/Day Years Used Date Smoking Tobacco: Never Smokeless Tobacco: Never Alcohol Use Standard Drinks/Week Comments No 0 (1 standard drink = 0.6 oz pure alcoho l) Sex Assigned at Date Recorded Female 12/20/2018 4:10 PM CDT documented as of this encounter Miscellaneous Notes Telephone Encounter - Ramona Smith RN - 08/30/2012 3:36 PM CST Called patient about upcoming urodynamics appointment on 08/31/12 at 0800. This was the second attempt to contact patient. Pt unable to be reached and message left on voicemail with a reminder of appointment date and time. Pt asked to call [facility] back at [phone] option #2 to go over pre visit planning prior to appointment or to cancel appointment if needed. Ramona Smith RN [employer] documented in this encounter Plan of Treatment Upcoming Encounters Date Type Specialty Care Team Description 09/10/2022 Office Visit Internal Medicine Margot Branham MD [address] [address] (Wo rk) documented as of this encounter Visit Diagnoses Not on filedocumented in this encounter
--- OUTSIDE RECORDS SUMMARY | 2022-07-30 19:31 | XMS_ITS | Encounter Summary ---
:1945 Author Organization [facility] Address [address] [place] [address]. [place] [address] Care Team Providers Name Role Phone Unavailable Primary Care Provider Unavailable Reason for Visit Reason Onset Date Comments Previsit 11/07/2012 Encounter Details Date Type Department Care Team Description 11/07/2012 Telephone UROLOGY CLINIC AND Francisco Landeros MD [facility] AND [address] [place] [address] [place] [address] [facility] 4TH FLOOR, [address] [facility] [address] [place], [place] [phone] Social History Tobacco Use Types Packs/Day Years Used Date Smoking Tobacco: Never Smokeless Tobacco: Never Alcohol Use Standard Drinks/Week Comments No 0 (1 standard drink = 0.6 oz pure alcoho l) Sex Assigned at Date Recorded Female 12/20/2018 4:10 PM CDT documented as of this encounter Miscellaneous Notes Telephone Encounter - Leticia Alcantar MA - 11/07/2012 1:11 PM EMERGENCY ROOM CLERK Patient coming in for 3 month follow up, ask GENCY ROOM CLERK documented in this encounter Plan of Treatment Upcoming Encounters Date Type Specialty Care Team Description 09/10/2022 Office Visit Internal Medicine LogeaisMargot MD [address] [facility] 4TH [place], [place] [address] (Wo rk) documented as of this encounter Visit Diagnoses Not on filedocumented in this encounter
--- OUTSIDE RECORDS SUMMARY | 2022-07-30 19:31 | XMS_ITS | Encounter Summary ---
:1945 Author Organization [place] Address [address] [facility] [place] [address] Care Team Providers Name Role Phone Unavailable Primary Care Provider Unavailable Reason for Visit Reason Onset Date Comments Medication Request 05/22/2013 Med for cold sores Encounter Details Date Type Department Care Team Description 05/22/2013 Telephone [facility] Women's Nurse, p Whs Medication Request (Med [facility] [place] for cold sores) [address] [facility] Professional Bldg [facility] [address],[place] [address] [place] [phone] Social History Tobacco Use Types Packs/Day Years Used Date Smoking Tobacco: Never Smokeless Tobacco: Never Alcohol Use Standard Drinks/Week Comments No 0 (1 standard drink = 0.6 oz pure alcoho l) Sex Assigned at Date Recorded Female 12/20/2018 4:10 PM CDT documented as of this encounter Miscellaneous Notes Telephone Encounter - Brooke Oliveros RN - 05/24/2013 9:50 AM CDT Pt advised that RX was sent to her pharmacy. 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 She used to have an RX for Valtrex 1gm as needed. Telephone Encounter - Jorge Garg RN - 05/22/2013 12:50 PM CDT left for Ramona that I will forward this request to Dr. Vang. I did want to discuss with her the frequency of the cold sores and she should call back to discuss. Telephone Encounter - Jorge Garg RN - 05/22/2013 12:50 PM CDT Message copied by JORGE GARG on WedMay 22, 2013 12:50 PM ------ Message from: LUIS ALBERTO GREER Created: WedMay 22, 2013 10:04 AM Regarding: Cold sore med Contact: Pt is wondering if she can get a script for something for cold sores, she would like [facility] called in to [facility] [place]. She can be reached at [phone]. Thanks! [place]. Please DO NOT send this message and/or reply back to sender. Call Center Representatives DO NOT respond to messages. documented in this encounter Plan of Treatment Upcoming Encounters Date Type Specialty Care Team Description 09/10/2022 Office Visit Internal Medicine Margot Branham MD [address] [phone] (Wo rk) documented as of this encounter Visit Diagnoses Diagnosis Seasonal allergies - Primary Allergic rhinitis, cause unspecified Recurrent herpes simplex Herpes simplex without mention of compli cation documented in this encounter
--- OUTSIDE RECORDS SUMMARY | 2022-07-30 19:31 | XMS_ITS | Encounter Summary ---
:1945 Author Organization [place] Address [address] [place] [address]. [place] [address] Care Team Providers Name Role Phone Unavailable Primary Care Provider Unavailable Reason for Visit JAN Physical Therapy (Routine) - Closed Specialty Diagnoses / Procedures Referred By Contact Refer red To Contact Carlota Landeros M D [facility] Sports & [address] [place] [address] Physical Therapy - [place], [place] [address] [place] [address] Phone: Fax: Referral ID Status Reason Start Date Expiration Date Visits Requ ested Visits Authorized JAN/HP/FWO Closed 10/04/2012 10/03/2013 20 18 Encounter Details Date Type Department Care Team Description 12/01/2012 Therapy Visit [facility] Fatemeh Silva PT Muscle weakness (Primary Dx); Rehabilitation Services [address] [facility] ixed [facility] [place] [address] [place] [phone] Social History Tobacco Use Types Packs/Day [...] Visit Internal Medicine Margot Branham MD [address] [place] [phone] (Wo rk) documented as of this encounter Procedures Procedure Name Priority Date/Time Associated Diagnosis Comme nts [facility] THERAPEUTIC Routine 12/01/2012 6:52 PM Muscle weakne ss ACTIVITIES LDR NURSE Mixed incontinence [facility] NEUROMUSCULAR Routine 12/01/2012 6:52 PM Muscle weak ness RE-EDUCATION LDR NURSE Mixed incontinence [facility] THERAPEUTIC Routine 12/01/2012 6:52 PM Muscle weakne ss EXERCISES LDR NURSE Mixed incontinence documented in this encounter Visit Diagnoses Diagnosis Muscle weakness - Primary Muscle weakness (generalized) Mixed incontinence Mixed incontinence urge and stress (male )(female) documented in this encounter
--- OUTSIDE RECORDS SUMMARY | 2022-07-30 19:31 | XMS_ITS | Encounter Summary ---
:1945 Author Organization [facility] Address [address] [place] [address] Care Team Providers Name Role Phone Unavailable Primary Care Provider Unavailable Encounter Details Date Type Department Care Team Description 04/12/2012 Results Only INTERFACED REPORT Unknown, DoctorMD Social History Tobacco Use Types Packs/Day Years [...] Office Visit Internal Medicine Logeais, MD Margot [address] [place] [address] (Wo rk) documented as of this encounter Procedures Procedure Name Priority Date/Time Associated Diagnosis Comme nts EKG 12-LEAD, Routine 04/12/2012 8:55 AM Results f or this TRACING ONLY CDT procedure are i n the results section. documented in this encounter Results EKG 12-lead, tracing only (04/12/2012 8:55 AM CDT) Component Value Ref Range Test Analysis Performed Pathologis t Method Time At Signature Ventricular Rate 68 BPM RADIOLOGY RESULTS Atrial Rate 68 BPM RADIOLOGY RESULTS DE Interval 158 ms RADIOLOGY RESULTS QRS Duration 104 ms RADIOLOGY RESULTS QT 404 ms RADIOLOGY RESULTS QTc 429 ms RADIOLOGY RESULTS P [place] 23 degrees RADIOLOGY RESULTS R AXIS 16 degrees RADIOLOGY RESULTS T [place] 51 degrees RADIOLOGY RESULTS Interpretation Sinus rhythm RADIOLOGY ECG RESULTS Interpretation Normal ECG RADIOLOGY ECG RESULTS Interpretation When compared RADIOLOGY ECG with ECG of RESULTS 12-MAY-2011 14:56, Interpretation No significant RADIOLOGY ECG change was RESULTS found Interpretation Study patient: RADIOLOGY ECG this is a RESULTS computer generated report only Specimen (Source) Anatomical Collection Method Collection Time Re ceived Time Location / / Volume Laterality 04/12/2012 8:55 AM CDT Doctor Unknown MD ECG ORDERABLES Performing Organization Address City/State/ZIP Code Phon e Number RADIOLOGY RESULTS documented in this encounter Visit Diagnoses Not on filedocumented in this encounter
--- OUTSIDE RECORDS SUMMARY | 2022-07-30 19:31 | XMS_ITS | Encounter Summary ---
:1945 Author Organization [place] Address [facility]ly [facility] [place] [address] Care Team Providers Name Role Phone Unavailable Primary Care Provider Unavailable Reason for Visit Reason Onset Date Comments Refill Request 05/24/2013 Encounter Details Date Type Department Care Team Description 05/24/2013 Refill [facility] Women's Torkel son, MD Lisseth Refill [facility] [address] [place] [address] [place] [address] [facility] 3rd Flr,[place] [address] [place] [phone] Social History Tobacco Use Types Packs/Day [...] Visit Internal Medicine LogMargot sadler MD [address] [address] (Wo rk) documented as of this encounter Visit Diagnoses Diagnosis Seasonal allergies - Primary Allergic rhinitis, cause unspecified documented in this encounter
--- OUTSIDE RECORDS SUMMARY | 2022-07-30 19:31 | XMS_ITS | Encounter Summary ---
:1945 Author Organization [place] Address [address] [place] [address]. [place] [address] Care Team Providers Name Role Phone Unavailable Primary Care Provider Unavailable Reason for Visit Reason Onset Date Comments Pre Visit Planning - Done 08/30/2012 Encounter Details Date Type Department Care Team Description 08/30/2012 Telephone UROLOGY CLINIC AND Carlota Landeros, Pre Visit Planning - [facility] MD Done AND [facility] [address] [facility] [address]LO[address], [address] [place] [address] [place] [address] Social History Tobacco Use Types Packs/Day Years Used Date Smoking Tobacco: Never Smokeless Tobacco: Never Alcohol Use Standard Drinks/Week Comments No 0 (1 standard drink = 0.6 oz pure alcoho l) Sex Assigned at Date Recorded Female 12/20/2018 4:10 PM CDT documented as of this encounter Miscellaneous Notes Telephone Encounter - Essence Joiner LPN - 08/30/2012 8:10 AM CST Patient coming in for urodynamic results She will do the urodynamics today as well 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 [address] [place], [place] [address] (Wo rk) documented as of this encounter Visit Diagnoses Not on filedocumented in this encounter
--- OUTSIDE RECORDS SUMMARY | 2022-07-30 19:31 | XMS_ITS | Encounter Summary ---
:1945 Author Organization [facility] Address [address] [place] [address]. [place] [address] Care Team Providers Name Role Phone Unavailable Primary Care Provider Unavailable Reason for Visit JAN Physical Therapy (Routine) - Closed Specialty Diagnoses / Procedures Referred By Contact Refer red To Contact Carlota Landeros M D M [facility] Sports & [address] [place] Physical Therapy - [place], [place] [address] [place] [address] Phone: Fax: Referral ID Status Reason Start Date Expiration Date Visits Requ ested Visits Authorized JAN/HP/FWO Closed 10/04/2012 10/03/2013 20 18 Encounter Details Date Type Department Care Team Description 10/11/2012 Therapy Visit [facility] Fatemeh Silva PT Muscle weakness (Primary Dx); Rehabilitation Services [address] [facility] ixed 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
--- OUTSIDE RECORDS SUMMARY | 2022-07-30 19:31 | XMS_ITS | Encounter Summary ---
:1945 Author Organization [place] Address [address] [place] [address]. [place] [address] Care Team Providers Name Role Phone Shanell Vang MD Primary Care Provider Mehreen Johnston MD PhD Primary Care Provider [phone] Balbir Simpson MD Primary Care Provider [phone] Carlota Landeros MD Unavailable Balbir Simpson MD Unavailable [phone] Luz Maria Kelly MD Unavailable Shanell Vang MD Unavailable Michelle Montana RN Unavailable Anh Costa APRN MILLING PLANER OPERATOR Unavailable Unavailable Martinez Galicia MD Unavailable Sabino Romano DPM Unavailable Kyle Roberts MD Primary Care Provider Mehreen Johnston MD PhD Unavailable [phone] LogeaMargot man MD Unavailable Martinez Galicia MD Unavailable LogMargot sadler MD Unavailable LogMargot sadler MD Primary Care Provider Levy Hussein MD Unavailable Alonso Tejeda MD Unavailable Encounter Details Date Type Department Care Team Description 08/31/2012 Office Visit-[facility] Anh Ascencio MD [address] [place] [address] (Wo rk) Social History Tobacco Use Types Packs/Day Years Used Date Smoking Tobacco: Never Smokeless Tobacco: Never Alcohol Use Standard Drinks/Week Comments No 0 (1 standard drink = 0.6 oz pure alcoho l) Sex Assigned at Date Recorded Female 12/20/2018 4:10 PM CDT documented as of this encounter Progress Notes Anh Ascencio MD - 08/31/2012 10:30 AM CST Inbound Customer Service Representative: Anh Ascencio Status: Final - Signature Encounter: 2012-08-31 10:30:00.000 Type: DXA SCAN [facility] [address] [place] [address] [address] [place] [address] Phone: Fax: Bone Densitometry Report: 08/31/[address]: Your patient, YIMI GARCIA ([id number] ), completed a DXA exam ([id number] ) on a [employer] on 08/31/2012 . The following is a summary of the results. Patient biographical information and history: Current measured height: 66.9 in. Current measured weight: 188.0 lbs. Dual energy x-ray absorptiometry was performed on this 67.0 year [age] White Female, who reports - a history of: EVAL FOR OSTEO, family hx of back fractures, FAMILY HX OF OSTEO, HIP REPLACEMENT, LOW BONE DENSITY, POSTMENOPAUSAL status, right hip replacement. There is a history of finger fractures. - the following current treatments: Calcium, ESTROGEN, Vitamin D Technical quality: Satisfactory. For the purpose of this exam the lumbar spine is represented by L1-L2. Foreign body seen on left hip images may invalidate interpretation, especially comparison to earlierstudies. Densitometry results: Comparison: 08/31/2012 11/07/2009 05/02/2008 Region Date BMD T - score Z - score BMD change from baseline BMD % change from baseline BMD change from previous BMD % change from previous L1-L4 08/31/2012 1.094 g/cm?? -0.007 g/cm?? -0.6% -0.007 g/cm?? -0.6% L1-L4 11/07/2009 1.101 g/cm?? L1-L4 05/02/2008 1.101 g/cm?? baseline baseline - - L1-L2 08/31/2012 0.959 g/cm?? -1.7 -0.8 -0.053 g/cm?? -5.2% -0.038 g/cm?? -3.8% L1-L2 11/07/2009 0.997 g/cm?? L1-L2 05/02/2008 1.012 g/cm?? baseline baseline - - Neck 08/31/2012 0.919 g/cm?? -0.9 0.2 Neck 11/07/2009 0.883 g/cm?? Neck 05/02/2008 0.883 g/cm?? Total 08/31/2012 0.827 g/cm?? -1.4 -0.7 -0.026 g/cm?? -3.0% 0.038 g/cm?? 4.8% Total 11/07/2009 0.789 g/cm?? Total 05/02/2008 0.853 g/cm?? baseline baseline - - mid radius 08/31/2012 0.683 -0.4 1.0 -0.058 -7.8% -0.019 -2.7% mid radius 11/07/2009 0.702 mid radius 05/02/[address]: Your patient, YIMI GARCIA ([id number] ), completed a DXA exam ([id number] ) on a [employer] on 08/31/2012 . The following are the conclusions and suggestions: Conclusions: Based on the lowest and valid T-score of -1.7 at the level of the lumbar spine according to WHO criteria for postmenopausal females and men age 50 and over (see Ref. #1), this individual has LOW bone density . (see Ref. #4) The risk of osteoporotic fracture increases approximately 2-fold for each 1.0 SD decrease in T-score. Low bone density is not the only risk factor for fracture; other factors to consider would include patient's age, risk of falling, risk of injury, previous osteoporotic fracture,family history of osteoporosis, etc. Note the wide range in BMD values and T- scores within the lumbar spine. This pattern suggests degenerative joint disease or occult fractures at the lumbar level that would limit the detection of low bone density in the L1 - L4 spine region. The lumbar spine is therefore represented by L1-L2. Taking into account the precision errors for this center, the calculated change in BMD at the level of the lumbar spine (bone loss) as shown is significant (see Ref.#7) compared with 2009 and 2007. TheBMD at the left total hip (bone gain) is significant compared with 2009. This comparison may be invalidated by artifact seen on the left hip images from 2009. The BMD at the 33% radius (bone loss) is significant compared with 2007. Clinical correlation is recommended based on the history of past fracture (see Ref #8) Bone densitometry cannot rule out secondary causes of bone loss. Therefore, further metabolic testing to look for secondary causes of low BMD should be performed if indicated. Repeat DXA testing in 1-2 years could be considered. Clinical correlation recommended. Principal result explosive ordnance specialist: Anh Ascencio MD, [facility] Division of Diabetes, Endocrinology and Metabolism [facility] [phone] Ref. 1. WHO categories: T-score > -1.0 = normal . T-score -1.0 to -2.5 = low bone density T-score < -2.5 = osteoporosis . Ref. 2. NOF Physician's Guideline Website address: www.nof.org. Ref. 3. [place] [employer] 2010 recommendations in the prevention and treatment of Glucocorticoid-induced Osteoporosis: Arthritis Care & Research 2010; 62(11): 8203-7955. Ref. 4. ISCD position statements: www.iscd.org. According to the ISCD position statements lateral spine is not to be used for diagnosis, but may have a role in monitoring. According to the ISCD position statements, the diagnosis of osteoporosis in pre- menopausal women andin men younger than age 50 should not be made on the basis of densitometric criteria alone. In addition Z-scores rather than T-scores should be used. Ref. 5. Implementation of suggestions is at the discretion of the ordering provider. Clinical correlation is recommended. Ref. 6. Bone density results acquired from different machines at different facilities, even if of the same make and model, are not directly comparable. Without accompanying images, determination of technical similarity and positioning differences are not possible. Ref. 7. (LSC = least significant change) As of 6, the LSC for the AP spine at the [facility] imaging center is 0.032 g/cm2. As of 03.18.07, the LSC for the right hip at the [facility] center is 0.018 gm/cm2. As of 03.18.07, the LSC for the left hip at the [facility] center is 0.029 g/cm2. As of 03.29.07, the LSC for the left mid radius at the [facility] center is 0.043 g/cm2. As of 09.21.04, the LSC for the lateral spine region is pending. As of 09.21.04, the LSC for the total body region is pending. According to the ISCD position statements, total hip rather than femoral neck regions are to be compared because larger areas give better precision. According to the ISCD position statements, total hip rather than femoral neck regions are to be compared because larger areas give better precision. Ref. 8. By definition, osteoporosis may be diagnosed in the presence or with the history of a low trauma or fragility fracture. Fragility and low trauma fracture is defined as a fracture resulting fromthe force of a fall from a standing height or less or a bone that breaks under conditions that wouldnot cause a normal bone to break. Updated 01-15-12 Electronically signed by:Anh Ascencio M.D. Sep 05 2012 9:55PM FIELD CREW CHIEF Author D CREW CHIEF documented in this encounter Plan of Treatment Upcoming Encounters Date Type Specialty Care Team Description 09/10/2022 Office Visit Internal Medicine Margot Branham MD [address] [place] [address] (Wo rk) documented as of this encounter Visit Diagnoses Not on filedocumented in this encounter Care Teams Collections Manager Relationship Specialty Start Date End Date Shanell Vang, PCP - General 04/13/16 11/14/[address] [facility] [address] [place] [address] Mehreen Johnston, PCP - General Family Practice 11/27/1303/05 PhD Balbir Simpson PCP - General Internal Medicine 03/26/15 6 MD Juvencio Kyle Roberts MD PCP - General Family Practice 11/15/19 10/27/[address] [place] [address] Margot Branham MD PCP - General Internal Medicine 10/28/20 9[address] [facility] [address] [place] [address] Carlota Landeros MD MD Urology 04/10/[address] [place] [address] Balbir Simpson Referring Physician Internal Medicine 04/17/15 03/29/16 MD Juvencio Luz Maria Kelly MD Internal Medicine 03/27/1602/02 Shanell Vang, PCP Family Practice 03/30/[address] [place] [address] Michelle Montana, MODESTA Registered Nurse Urology 05/07/17 Anh Costa APRN Nurse Practitioner Nurse Practitioner 10/07/17 Martinez Hernandez MD Ophthalmology 04/18/[address] [place] [address] Sabino Romano DPM MD Podiatry 08/11/18 [facility] [address] [phone] Mehreen Johnston MD Family Practice 11/15/19 MD PhD [address] [place] [address] [phone] Margot Branham MD MD Internal Medicine 04/17/[address] [place] [address] [phone] Martinez Galicia, Assigned Surgical 07/26/20 MD Provider [address] [place] [address] [phone] Margot Branham MD Assigned PCP 09/15/[address] [place] [address] [phone] Levy Hussein MD Assigned Surgical 03/23/21 06/14/[address] [place] [address] [place] [address] Alonso Tejeda MD MD Internal Medicine 06/19/[address] [place] [address] documented as of this encounter
--- OUTSIDE RECORDS SUMMARY | 2022-07-30 19:31 | XMS_ITS | Encounter Summary ---
:1945 Author Organization [place] Address [address] [place] [address]. [place] [address] Care Team Providers Name Role Phone Unavailable Primary Care Provider Unavailable Reason for Visit JAN Physical Therapy (Routine) - Closed Specialty Diagnoses / Procedures Referred By Contact Refer red To Contact Carlota Landeros M D M [facility] Sports & [address] Physical Therapy - [place], [place] [address] [place] [address] Phone: Fax: Referral ID Status Reason Start Date Expiration Date Visits Requ ested Visits Authorized JAN/HP/FWO Closed 10/04/2012 10/03/2013 20 18 Encounter Details Date Type Department Care Team Description 11/08/2012 Therapy Visit [facility] Fatemeh Silva PT Muscle weakness (Primary Dx); Rehabilitation Services [address] [facility] ixed [facility] [address] [place] [phone] Social History Tobacco Use Types Packs/Day [...] Visit Internal Medicine Margot Branham MD [address] [place] [phone] (Wo rk) documented as of this encounter Procedures Procedure Name Priority Date/Time Associated Diagnosis Comme nts [facility] THERAPEUTIC Routine 11/09/2012 8:20 AM Muscle weakne ss ACTIVITIES GROUP PRESIDENT Mixed incontinence [facility] NEUROMUSCULAR Routine 11/09/2012 8:20 AM Muscle weak ness RE-EDUCATION GROUP PRESIDENT Mixed incontinence [facility] THERAPEUTIC Routine 11/09/2012 8:20 AM Muscle weakne ss EXERCISES GROUP PRESIDENT Mixed incontinence documented in this encounter Visit Diagnoses Diagnosis Muscle weakness - Primary Muscle weakness (generalized) Mixed incontinence Mixed incontinence urge and stress (male )(female) documented in this encounter
--- OUTSIDE RECORDS SUMMARY | 2022-07-30 19:31 | XMS_ITS | Encounter Summary ---
:1945 Author Organization [place] Address [address] [place] [address]. [place] [address] Care Team Providers Name Role Phone Unavailable Primary Care Provider Unavailable Encounter Details Date Type Department Care Team Description 11/19/2012 Results Only UROLOGY CLINIC AND [facility] AND Sherice mcrae PA-C UROLOGIC CANCERS [address] [place] [address] [address] FLOOR, [address] 420 [facility], (Fax ) [place] [phone] Social History Tobacco Use Types Packs/Day [...] Internal Medicine Margot Branham MD [address] [phone] (Wo rk) Scheduled Orders Name Type Priority Associated Diagnoses Order S nilda [facility] Clinic - urodynamic Imaging Ord ered: 11/19/2012 flow study under fluoroscopy documented as of this encounter Visit Diagnoses Not on filedocumented in this encounter
--- OUTSIDE RECORDS SUMMARY | 2022-07-30 19:31 | XMS_ITS | Encounter Summary ---
:1945 Author Organization [place] Address [address] [place] [address]. [place] [address] Care Team Providers Name Role Phone Unavailable Primary Care Provider Unavailable Encounter Details Date Type Department Care Team Description 09/09/2012 Orders Only Colon and Rectal Ricci-Meaux, Anal or re ctal pain (Primary Dx); Surgery Clinic Theresa Huff MD Hemorrhoids [facility] [address] [facility] Building [address], Clinic [address] [place] [address] [facility] [address] [place], [place] [phone] (Wo rk) [address] [phone] Social History Tobacco Use Types Packs/Day Years [...] Medicine Margot Branham MD 909 [facility] 4[address] [place] [address] (Wo rk) documented as of this encounter Visit Diagnoses Diagnosis Anal or rectal pain - Primary Hemorrhoids Unspecified hemorrhoids without mention of complication documented in this encounter
--- OUTSIDE RECORDS SUMMARY | 2022-07-30 19:31 | XMS_ITS | Encounter Summary ---
:1945 Author Organization [place] Address [address] [facility] [place] [address] Care Team Providers Name Role Phone Unavailable Primary Care Provider Unavailable Reason for Visit Reason Onset Date Comments Results 09/09/2012 DEXA Encounter Details Date Type Department Care Team Description 09/09/2012 Telephone [facility] Nurse, Alyssa walker s Results (DEXA) [place] [address] [address],[facility] [address] [place], [place] [phone] Social History Tobacco Use Types Packs/Day Years Used Date Smoking Tobacco: Never Smokeless Tobacco: Never Alcohol Use Standard Drinks/Week Comments No 0 (1 standard drink = 0.6 oz pure alcoho l) Sex Assigned at Date Recorded Female 12/20/2018 4:10 PM CDT documented as of this encounter Miscellaneous Notes Telephone Encounter - Jorge Garg RN - 09/09/2012 3:14 PM CST left for Ramona with the result of her DEXA. A results letter has been mailed on 09/[address] Vang and I will send her a copy of the DEXA. I have also asked that she contact her pharmacy for the rx refill as I do not see this in her medication list. ZING PAD OPERATOR Telephone Encounter - Jorge Garg RN - 09/09/2012 3:14 PM CST Message copied by JORGE GARG on WedSep 09, 2012 3:14 PM ------ Message from: YEISON DAVID Created: WedSep 09, 2012 12:48 PM Regarding: pt wanting results from DEXA Scan Pt wanting results from the DEXA Scan she had done on 08/31. Pls stated she would like a letter maiedl to her with the results. Pt stated she also needs a Rx refill on her Astelin(?) Pls send do pt [facility] on file [phone] Meche Orona ZING PAD OPERATOR documented in this encounter Plan of Treatment Upcoming Encounters Date Type Specialty Care Team Description 09/10/2022 Office Visit Internal Medicine LogeaisMargot MD [address] [place] [address] (Wo rk) documented as of this encounter Visit Diagnoses Not on filedocumented in this encounter
--- OUTSIDE RECORDS SUMMARY | 2022-07-30 19:31 | XMS_ITS | Encounter Summary ---
:1945 Author Organization [place] Address [address] [place] [address]. [place] [address] Care Team Providers Name Role Phone Unavailable Primary Care Provider Unavailable Encounter Details Date Type Department Care Team Description 12/12/2012 Orders Only [facility] [place], Seasonal allergies Zenith Condomselvin Montanez MD (Primary Dx) [place] [address] [address] [place], [place] [address] [phone] Social History Tobacco Use Types Packs/Day Years [...] Office Visit Internal Medicine LogeaMargot man MD [address] [place] [phone] (Wo rk) documented as of this encounter Visit Diagnoses Diagnosis Seasonal allergies - Primary Allergic rhinitis, cause unspecified documented in this encounter
--- OUTSIDE RECORDS SUMMARY | 2022-07-30 19:31 | XMS_ITS | Encounter Summary ---
:1945 Author Organization [place] Address [address] [place] [address]. [place] [address] Care Team Providers Name Role Phone Unavailable Primary Care Provider Unavailable Reason for Visit Reason Comments RECHECK PT Encounter Details Date Type Department Care Team Description 03/16/2013 Office Visit [facility] Carlota Landeros Mixe d incontinence (Primary Dx); Clinic Evette Combs MD Urinary retention [address] [facility] 100 [address] [place], [place] [phone] Social History Tobacco Use Types Packs/Day Years Used Date Smoking Tobacco: Never Smokeless Tobacco: Never Tobacco Cessation: Counseling Given: No Alcohol Use Standard Drinks/Week Comments No 0 (1 standard drink = 0.6 oz pure alcoho l) Sex Assigned at Date Recorded Female 12/20/2018 4:10 PM CDT documented as of this encounter Last Filed Vital Signs Vital Sign Reading Time Taken Comments Blood Pressure 125/76 03/16/2013 11:30 AM CDT Pulse 79 03/16/2013 11:30 AM CDT Temperature - - Respiratory Rate 16 03/16/2013 11:30 AM CDT Oxygen Saturation - - Inhaled Oxygen Concentration - - Weight - - Height 170.2 cm (5' 7) 03/16/2013 11:30 AM CDT Body Mass Index - - documented in this encounter Progress Notes Carlota Landeros MD - 03/16/2013 11:33 AM CDT Reason for Visit: f/u on PT. Clinical [...] PVR was 150 ml. Repeat UDS are below.But she states that the PT has helped significantly especially with the urgency and urge incontinence. And now she is working more on her stress incontinence. 1. Normal bladder capacity, 629 ml. 2. Good bladder compliance. 3. Maximum voiding Pdet 13 cm H2O; once moved to [facility] commode patient voided with Valsalva voiding with [...] ml. 6. Left hemipelvis InterStim lead on social services technician imaging. A/P: 67 year old female with mixed incontinence. Discussed options of PT vs. Sling again . She wouldlike to continue with PT for now. -schedule PT -f/u in 6 months to reassess. Thank you for allowing me to participate in the care of Ms. Ramona Sheikh and I will keep you updated on her progress. Carlota Landeros MD 15 min spent with patient, >50% in discussion and coordination of care. documented in this encounter Nursing Notes 03/16/2013 11:30 AM CDT >> LUCERO FIX Jessica Mar 16, 2013 11:48 AM Patient was offered available choices for upcoming appointments. (procedures, surgeries, imaging, labs, referrals and follow-up) Patient chose the appointment that were best for them at their office visit today. (See patient instructions) Patient was provided appropriate contact information to reschedule appointments if needed. Lucero Riley CMA documented in this encounter Plan of Treatment Upcoming Encounters Date Type Specialty Care Team Description 09/10/2022 Office Visit Internal Medicine Margot Branham MD [address] [place] [address] [phone] (Wo rk) documented as of this encounter Visit Diagnoses Diagnosis Mixed incontinence - Primary Mixed incontinence urge and stress (male )(female) Urinary retention Retention of urine, unspecified documented in this encounter
--- OUTSIDE RECORDS SUMMARY | 2022-07-30 19:31 | XMS_ITS | Encounter Summary ---
:1945 Author Organization [place] Address [address] [place] [address]. [place] [address] Care Team Providers Name Role Phone Unavailable Primary Care Provider Unavailable Reason for Visit JAN Physical Therapy (Routine) - Closed Specialty Diagnoses / Procedures Referred By Contact Refer red To Contact Carlota Landeros M D M [facility] Sports & [address] [place] [address] Physical Therapy - [place], [place] [address] [place] [address] Phone: Fax: Referral ID Status Reason Start Date Expiration Date Visits Requ ested Visits Authorized JAN/HP/FWO Closed 10/04/2012 10/03/2013 20 18 Encounter Details Date Type Department Care Team Description 11/15/2012 Therapy Visit [facility] Fatemeh Silva PT Muscle weakness (Primary Dx); Rehabilitation Services [address] [facility] ixed [facility] [place] [address] [place] [phone] Social History Tobacco Use Types Packs/Day [...] Visit Internal Medicine Margot Branham MD [address] [place] [phone] (Wo rk) documented as of this encounter Procedures Procedure Name Priority Date/Time Associated Diagnosis Comme nts [facility] THERAPEUTIC Routine 11/17/2012 1:43 PM Muscle weakne ss ACTIVITIES SCALLOPER Mixed incontinence [facility] NEUROMUSCULAR Routine 11/17/2012 1:43 PM Muscle weak ness RE-EDUCATION SCALLOPER Mixed incontinence [facility] THERAPEUTIC Routine 11/17/2012 1:43 PM Muscle weakne ss EXERCISES SCALLOPER Mixed incontinence documented in this encounter Visit Diagnoses Diagnosis Muscle weakness - Primary Muscle weakness (generalized) Mixed incontinence Mixed incontinence urge and stress (male )(female) documented in this encounter
--- OUTSIDE RECORDS SUMMARY | 2022-07-30 19:31 | XMS_ITS | Encounter Summary ---
:1945 Author Organization [place] Address [address] [place] [address]. [place] [address] Care Team Providers Name Role Phone Unavailable Primary Care Provider Unavailable Encounter Details Date Type Department Care Team Description 08/31/2012 Orders Only [facility] C enter Osteopenia [facility] 1st Floor, Clinic 1D Mail Code 152 [place], [place] [address] Social History Tobacco Use Types Packs/Day Years Used Date Smoking Tobacco: Never Smokeless Tobacco: Never Alcohol Use Standard Drinks/Week Comments No 0 (1 standard drink = 0.6 oz pure alcoho l) Sex Assigned at Date Recorded Female 12/20/2018 4:10 PM CDT documented as of this encounter Miscellaneous Notes Initial Assessments - Abstract, Provider - 09/23/2012 10:41 AM CST HEAD CRANE TECHNICIAN documented in this encounter Plan of Treatment Upcoming Encounters Date Type Specialty Care Team Description 09/10/2022 Office Visit Internal Medicine LogeaisMargot MD [address] [place] [phone] (Wo rk) documented as of this encounter Procedures Procedure Name Priority Date/Time Associated Diagnosis Comme nts DX HIP/PELVIS/SPINE Routine 08/31/2012 12:54 PM Osteopenia R esults for this OVERHEAD CRANE TECHNICIAN procedure are i n the results section. documented in this encounter Results Dexa hip/pelvis/spine* (08/31/2012 12:54 PM OVERHEAD CRANE TECHNICIAN) Anatomical Region Laterality Modality Dexa Computed Radiography Specimen (Source) Anatomical Collection Method Collection Time Re ceived Time Location / / Volume Laterality 08/31/2012 12:54 PM OVERHEAD CRANE TECHNICIAN Narrative 09/06/2012 2:16 PM OVERHEAD CRANE TECHNICIAN SHANELL BAUM ??DR: ?? Your patient, YIMI GARCIA ([id number] ), completed a DXA exam ([id number] ) on a [facility] on 08/31/2012 . The following are the conclusions and sugges tions: ? Conclusions: Based on the lowest and valid T-score of -1.7 ??at the level of the lumbar spine ??according to WHO criteria for postmenopausal females and men age 50 and over (see Ref. #1), t his individual has LOW bone density . (see Ref. #4) The risk of oste oporotic fracture increases approximately 2-fold for each 1.0 SD dec rease in T-score. ??Low bone density is not the only risk factor for fracture; other factors to consider would include patient's age, ri sk of falling, risk of injury, previous osteoporotic fracture, family history of osteoporosis, etc. ?? Note the wide range in BMD values and T- scores within the lumbar spine. This pattern suggests degenerativ e joint disease or occult fractures at the lumbar level that would limit the detection of low bone density in the L1 - L4 spine region . ??The lumbar spine is therefore represented by L1-L2. ? Taking into account the precision errors for this center, the calculated change in BMD at the level of the lumbar spine (bone loss) ?? as shown is significant (see Ref.#7) com pared with 2009 and 2007. ?? The BMD at the left total hip (bone gain ) is significant compared with 2009. ??This comparison may be inva lidated by artifact seen on the left hip images from 2009. ??The BMD at the 33% radius (bone loss) is significant compared with 2007. ? Clinical correlation is recommended base d on the history of past fracture (see Ref #8) ?? Bone densitometry cannot rule out second kitty causes of bone loss. ?? Therefore, further metabolic testing to look for secondary causes of low BMD should be performed if indicated . ?? Repeat DXA testing in 1-2 years could be considered. ? Clinical correlation recommended. ? Principal result comptometer operator: Anh Ascencio MD, [facility] Division of Diabetes, Endocrinology and Metabolism [facility] [phone] ? * Procedure Note Anh Ascencio MD - 09/06/2012Forma tting of this note might be different from the original. SHANELL BAUM DR: Your patient, YIMI GARCIA ([id number] ), completed a DXA exam ([id number] ) on a [facility] on 08/31/2012 . The following are the conclusions and sugges tions: Conclusions: Based on the lowest and valid T-score of -1.7 at the level of the lumbar spine according to WHO criteria f or postmenopausal females and men age 50 and over (see Ref. #1), t his individual has LOW bone density . (see Ref. #4) The risk of oste oporotic fracture increases approximately 2-fold for each 1.0 SD dec rease in T-score. Low bone density is not the only risk factor for fracture; other factors to consider would include patient's age, ri sk of falling, risk of injury, previous osteoporotic fracture, family history of osteoporosis, etc. Note the wide range in BMD values and T- scores within the lumbar spine. This pattern suggests degenerativ e joint disease or occult fractures at the lumbar level that would limit the detection of low bone density in the L1 - L4 spine region . The lumbar spine is therefore represented by L1-L2. Taking into account the precision errors for this center, the calculated change in BMD at the level of the lumbar spine (bone loss) as shown is significant (see Ref.#7) com pared with 2009 and 2007. The BMD at the left total hip (bone gain ) is significant compared with 2009. This comparison may be invali dated by artifact seen on the left hip images from 2009. The BMD a t the 33% radius (bone loss) is significant compared with 2008. Clinical correlation is recommended base d on the history of past fracture (see Ref #8) Bone densitometry cannot rule out second kitty causes of bone loss. Therefore, further metabolic testing to look for secondary causes of low BMD should be performed if indicated . Repeat DXA testing in 1-2 years could be considered. Clinical correlation recommended. Principal result comptometer operator: Anh Ascencio MD, CCD Division of Diabetes, Endocrinology and Metabolism [facility] [phone] * Shanell Baum MD IMG DEXA ORDERABLES documented in this encounter Visit Diagnoses Diagnosis Osteopenia Disorder of bone and cartilage, unspecif ied documented in this encounter
--- OUTSIDE RECORDS SUMMARY | 2022-07-30 19:31 | XMS_ITS | Encounter Summary ---
:1945 Author Organization [facility] Address [address] [place] [address]. [place] [address] Care Team Providers Name Role Phone Unavailable Primary Care Provider Unavailable Reason for Visit Reason Onset Date Comments Other 06/13/2013 Reschedule appt Encounter Details Date Type Department Care Team Description 06/13/2013 Telephone [facility] Carlota Landeros O[place] r (Reschedule Clinic Evette Combs MD appt) [address] [place], [place] [address] [place], [place] [phone] (Wo rk) Social History Tobacco Use Types Packs/Day Years Used Date Smoking Tobacco: Never Smokeless Tobacco: Never Alcohol Use Standard Drinks/Week Comments No 0 (1 standard drink = 0.6 oz pure alcoho l) Sex Assigned at Date Recorded Female 12/20/2018 4:10 PM CDT documented as of this encounter Miscellaneous Notes Telephone Encounter - Nubia Duque RN - 06/20/2013 8:53 AM CDT After reviewing patient's chart, appointment has been rescheduled to 10/02/13 at 4:00pm with Dr. Landeros through the call center. Nubia Duque RN Telephone Encounter - Nubia Duque RN - 06/13/2013 11:24 AM CDT LM for patient to reschedule appointment on 09/25/13 at 9:30am as Dr. Landeros is not in clinic that day. Will await call back to reschedule. Nubia Duque, RN documented in this encounter Plan of Treatment Upcoming Encounters Date Type Specialty Care Team Description 09/10/2022 Office Visit Internal Medicine LogeaisMargot MD [address] [place] [address] [phone] (Wo rk) documented as of this encounter Visit Diagnoses Not on filedocumented in this encounter
--- OUTSIDE RECORDS SUMMARY | 2022-07-30 19:31 | XMS_ITS | Encounter Summary ---
:1945 Author Organization [facility] Address [address] [place] [address]. [place] [address] Care Team Providers Name Role Phone Unavailable Primary Care Provider Unavailable Reason for Visit Reason Onset Date Comments Pre Visit Planning - Done 06/23/2012 Encounter Details Date Type Department Care Team Description 06/23/2012 Telephone [facility] AND Carlota Landeros, Pre Visit Planning - [facility] MD Done [facility] [address] [facility] 100 4TH FLOOR, [address] [place] [address] [place] [address] Social History Tobacco Use Types [...] Visit Internal Medicine Margot Branham MD [address] [facility] [address] [place] [address] (Wo rk) documented as of this encounter Visit Diagnoses Not on filedocumented in this encounter
--- OUTSIDE RECORDS SUMMARY | 2022-07-30 19:31 | XMS_ITS | Encounter Summary ---
:1945 Author Organization [place] Address [address] [place] [address]. [place] [address] Care Team Providers Name Role Phone Unavailable Primary Care Provider Unavailable Reason for Visit JAN Physical Therapy (Routine) - Closed Specialty Diagnoses / Procedures Referred By Contact Refer red To Contact Carlota Landeros M D M [facility] Sports & [address] [place] [address] Physical Therapy - [place], [place] [address] [place] [address] Phone: Fax: Referral ID Status Reason Start Date Expiration Date Visits Requ ested Visits Authorized JAN/HP/FWO Closed 10/04/2012 10/03/2013 20 18 Encounter Details Date Type Department Care Team Description 12/06/2012 Therapy Visit [facility] Fatemeh Silva PT Muscle weakness (Primary Dx); Rehabilitation Services [address] [facility] ix[address] [facility] [place] 100 [address] [place] [phone] Social History Tobacco Use Types Packs/Day [...] Visit Internal Medicine Margot Branham MD [address] [address] (Wo rk) documented as of this encounter Procedures Procedure Name Priority Date/Time Associated Diagnosis Comme nts [facility] THERAPEUTIC Routine 12/06/2012 4:53 PM Muscle weakne ss ACTIVITIES CAGE CLERK Mixed incontinence [facility] NEUROMUSCULAR Routine 12/06/2012 4:53 PM Muscle weak ness RE-EDUCATION CAGE CLERK Mixed incontinence [facility] THERAPEUTIC Routine 12/06/2012 4:53 PM Muscle weakne ss EXERCISES CAGE CLERK Mixed incontinence documented in this encounter Visit Diagnoses Diagnosis Muscle weakness - Primary Muscle weakness (generalized) Mixed incontinence Mixed incontinence urge and stress (male )(female) documented in this encounter
--- OUTSIDE RECORDS SUMMARY | 2022-07-30 19:32 | XMS_ITS | Encounter Summary ---
:1945 Author Organization [place] Address [facility] [place] [address] Care Team Providers Name Role Phone Unavailable Primary Care Provider Unavailable Reason for Visit Reason Comments Menopausal Sx Hot flashes. Bp medication q uestions and tinnitis Encounter Details Date Type Department Care Team Description 12/10/2011 Office Visit [facility] Maxime Vang dr [facility] MD Lisseth (Primary Dx) [address] PROFESSIONAL [place] [address] [place], [place] 3RD FLR,[phone] [place] [address] S [phone] [facility] 88 (Work) [place], [place] [address] [phone] Social History Tobacco Use Types Packs/Day Years Used Date Smoking Tobacco: Never Smokeless Tobacco: Never Alcohol Use Standard Drinks/Week Comments No 0 (1 standard drink = 0.6 oz pure alcoho l) Sex Assigned at Date Recorded Female 12/20/2018 4:10 PM CDT documented as of this encounter Last Filed Vital Signs Vital Sign Reading Time Taken Comments Blood Pressure 142/78 12/10/2011 11:05 AM RADIO MESSAGE ROUTER Pulse 62 12/10/2011 11:05 AM RADIO MESSAGE ROUTER Temperature - - Respiratory Rate - - Oxygen Saturation - - Inhaled Oxygen Concentration - - Weight 86.9 kg (191 lb 8 oz) 12/10/2011 11:05 AM RADIO MESSAGE ROUTER Height - - Body Mass Index 29.99 10/19/2011 11:19 PM RADIO MESSAGE ROUTER documented in this encounter Progress Notes Lisseth Vang MD - 12/10/2011 7:49 AM CST Ramona is a 66 year old female that presents today for hotflashes and vaginal dryness. HPI: Concerned about hot flashes, vaginal atrophy, ringing in the ears. Is not on HT since 07/2009 - wondering if she should return to HT however she is very leery about risks. Having mammogram today. ROS: General: weight gain Head/Eyes: none Ears/Nose/Throat: ringing in ears Cardiovascular: none Respiratory: none Gastrointestinal: none Breast: none Genitourinary:constipation Sexual Function: none Musculoskeletal: joint pain and swelling Skin: none Neurological: none Mental Health: none Endocrine: none PAST MEDICAL HISTORY: 1) 1 para 1 status post in 1978. Has uterine fibroids. Not on hormone therapy - stopped vivelle dot in july 2009. Will use topical estrogen cream 1/week. 2) Osteoarthritis of the right hip Minimal invasive surgery 09/09. 3) Hypertension - controlled on medication 4). Osteopenia - on calcium and vitamin D - will have follow-up DEXA Nov 2011 . 5). Atrophic vaginitis - using estrace cream 2 times/week and helping - no vaginal bleeding continue 6). Mixed incontinence urge and stress with no detrusor contraction - followed by Dr Landeros 7). Cardiac risk - followed by Dr Costa - will get repeat CRP cardiac 8). Strong FHX of colon cancer - colonoscopy April 2010 repeat in 5 years 9) Problems with anesthesia with nausea and vertigo (dry heaves). Wants fentanyl, Midazolam, and Zofran as she tolerated this cocktail for her colonoscopy. 10) No Blood Transfusions Exercise: no routine Diet: Ok Supplements: Vitamin D and EFA PAST SURGICAL HISTORY: 1) Phase II Interstim:Implant Stimulator and Leads sacral nerve by Dr. Landeros on 05/19/2011. Hip replacement 09/09 2) Status post breast reduction 1996. 3) FAMILY HISTORY: Strong Family HX of colon Cancer. Past Medical History Diagnosis Date ??? Rhinitis ??? Fibroid uterus ??? Deviated nasal septum Dr Baer ENT ??? Hypertension ??? PONV (postoperative nausea and vomiting) Current outpatient prescriptions Medication Sig ??? tramadol (ULTRAM) 50 MG tablet Take 1-2 tablets by mouth every 6 hours as needed for pain. ??? naproxen sodium (ANAPROX) 220 MG tablet Take 440 mg by mouth 2 times daily (with meals). Indications: Mild to Moderate Pain ??? estradiol (ESTRACE) 0.1 MG/GM vaginal cream Place 2 g vaginally twice a week. Use 1/2 applicatortwice weekly ??? psyllium 0.52 GM capsule Take 1 capsule by mouth daily. Take 2 caps daily ??? GUAIFENESIN-POT GUAIACOL-DM OR Take 100 mg by mouth. Take one tablet twice daily ??? Multiple Vitamin (MULTIVITAMINS PO) Take by mouth. Take 1 daily ??? Calcium Citrate Malate-Vit D (CALCIUM + D) 250-100 MG-UNIT TABS Take 2 tablets by mouth 2 times daily. ??? GLUCOSAMINE PO Take 1 capsule by mouth every 12 hours. ??? Magnesium 200 MG TABS Take 4 tablets by mouth daily. ??? fish oil-omega-3 fatty acids (OMEGA 3) 1000 MG capsule Take 2 capsules by mouth 2 times daily. ??? Propranolol HCl 60 MG CP24 Take 1 capsule by mouth every morning. ??? OTHER MEDICAL SUPPLIES ROCÍO stockings knee length USE DIRECTED . ??? OTHER MEDICAL SUPPLIES ROCÍO Stockings thigh length ??? Cholecalciferol (VITAMIN D3) 1000 UNIT TABS Take 1 tablet by mouth daily. ??? diphenhydrAMINE (BENADRYL) 25 MG tablet Take 25 mg by mouth every 6 hours as needed. Has been taking 2 at night lately. Allergies: Propofol, Morphine, Codeine, Nickel, Latex and Tape VITALS: Blood pressure 142/78, pulse 62, weight 86.864 kg (191 lb 8 oz). PHYSICAL EXAM: Constitutional: Well appearing woman in [...] normal appearance - dry mucosa not atrophic. No enlargement of the Barth[place] or [place] glands. Urethra and bladder are non-tender. Vagina is without lesions or discharge. Normal epithelium, no anterior or posterior wall defects. ASSESSMENT: ?? Vaginal Dryness/Atrophy ?? Hot flashes ?? Constipation PLAN: Declined Effexor or Gabapentin and Scared of Estrogen - May consider in the future. Discussed E-string and RX sent - Follow-up in three months to see if she is feeling better Mammogram today Miralax as needed ( citracil if not too much gas) And Probiotic - 5 billion CFU O MESSAGE ROUTER documented in this encounter Plan of Treatment Upcoming Encounters Date Type Specialty Care Team Description 09/10/2022 Office Visit Internal Medicine LogeaMargot man MD [address] [place] [phone] (Wo rk) documented as of this encounter Visit Diagnoses Diagnosis Vaginal dryness - Primary Other specified symptom associated with female genital organs documented in this encounter
--- OUTSIDE RECORDS SUMMARY | 2022-07-30 19:32 | XMS_ITS | Encounter Summary ---
:1945 Author Organization [place] Address [address] [place] [address]. [place] [address] Care Team Providers Name Role Phone Unavailable Primary Care Provider Unavailable Encounter Details Date Type Department Care Team Description 11/16/2011 PRE VISIT [facility] Clinic Vanessa Mcgregor MD 8th Floor, Clinic 8A [address] [facility] [address] [place], [place] [address] [place] [address] 6 [facility] [place] [phone] Social History Tobacco Use Types Packs/Day Years Used Date Smoking Tobacco: Never Smokeless Tobacco: Never Alcohol Use Standard Drinks/Week Comments No 0 (1 standard drink = 0.6 oz pure alcoho l) Sex Assigned at Date Recorded Female 12/20/2018 4:10 PM CDT documented as of this encounter Miscellaneous Notes Telephone Encounter - Kaleigh Fisher Carmen - 11/16/2011 3:45 PM CST ENT PRE VISIT NOTE On the phone call: Date of Call: November 16, 2011 Date of appointmentl: November 16, 2011 Reason for Call: Tinnitus Who made the initial call: (patient, Parent, referral source) PT Who is the Referring Provider? (Name, address, phone number if available) NONE How long have they had this condition? OVER 20 YEARS Was the patient seen in an Emergency Room (No or Yes what one and how long ago): NO Where and what testing has been done including: None ENT related surgeries in the past: No After the phone call: Request medical records: NO -- From where: What date: Who did you speak to: Is the information already in the EMR? Yes Have you sent map and letter? Yes Clinic preparation: (1 week prior) Have records been received: No Date received: Films received: No Pushed to PACs date: Pathology slides received: Date sent to pathology: R BANDER documented in this encounter Plan of Treatment Upcoming Encounters Date Type Specialty Care Team Description 09/10/2022 Office Visit Internal Medicine LogeaisMargot MD [address] [place] [phone] (Wo rk) documented as of this encounter Visit Diagnoses Not on filedocumented in this encounter
--- OUTSIDE RECORDS SUMMARY | 2022-07-30 19:32 | XMS_ITS | Encounter Summary ---
:1945 Author Organization [facility] Address [address] [place] [address]. [place] [address] Care Team Providers Name Role Phone Mehreen Johnston MD PhD Primary Care Provider [phone] Reason for Visit Reason Comments Hip Pain Had hip replacement 2008 Encounter Details Date Type Department Care Team Description 10/19/2011 - Emergency [facility] Merrill Stock Hip pain, right 10/20/2011 Emergency Department MD Balbir [address] [place] [phone] [place], [place] [phone] (Wo rk) Social History Tobacco Use Types Packs/Day Years Used Date Smoking Tobacco: Never Smokeless Tobacco: Never Alcohol Use Standard Drinks/Week Comments No 0 (1 standard drink = 0.6 oz pure alcoho l) Sex Assigned at Date Recorded Female 12/20/2018 4:10 PM CDT documented as of this encounter Last Filed Vital Signs Vital Sign Reading Time Taken Comments Blood Pressure 130/69 10/19/2011 11:19 PM JAR CAPPER Pulse 69 10/19/2011 11:19 PM JAR CAPPER Temperature 36.5 ??C (97.7 ??F) 10/19/2011 11:19 PM JAR CAPPER Respiratory Rate 18 10/19/2011 11:19 PM JAR CAPPER Oxygen Saturation 100% 10/19/2011 11:19 PM JAR CAPPER Inhaled Oxygen Concentration - - Weight 82.6 kg (182 lb) 10/19/2011 11:19 PM JAR CAPPER Height 170.2 cm (5' 7) 10/19/2011 11:19 PM JAR CAPPER Body Mass Index 28.51 10/19/2011 11:19 PM JAR CAPPER documented in this encounter Discharge Instructions Discharge InstructionsMerrill Stock MD - 10/20/2011 12:12 AM JAR CAPPER Try pain medication as needed No evidence for dislocation If you continue to have problems see your orthopedic surgeon. CAPPER documented in this encounter Medications at Time of Discharge Medication Sig Dispensed Refills Start Date End Date cholecalciferol (VITAMIN Take 2 tablets by 0 D3) 1000 UNIT tablet mouth daily. OTHER MEDICAL SUPPLIES ROCÍO stockings knee 0 length USE DIRECTED . Calcium Carbonate-Vitamin 0 11/27/2013 D (CALCIUM 500 + D PO) diphenhydrAMINE Take 25 mg by mouth 0 02/11/2012 (BENADRYL) 25 MG tablet every 6 hours as needed. Has been taking 2 at night lately. estradiol (ESTRACE) 0.1 Place 2 g vaginally 42.5 g 3 02/11/2012 MG/GM vaginal twice a week. Use creamIndications: 1/2 applicator twice Menopause weekly fish oil-omega-3 fatty Take 1 capsule by 0 04/10/2019 acids (OMEGA 3) 1000 MG mouth 2 times daily capsule GLUCOSAMINE PO Take 1 capsule by 0 07/2012 mouth every 12 hours. GUAIFENESIN-POT Take 100 mg by 0 12/09 GUAIACOL-DM OR mouth. Take one tablet twice daily Magnesium 200 MG TABS Take 4 tablets by 0 04/10/2019 mouth daily. Multiple Vitamin Take by mouth. Take 0 12/10/2011 (MULTIVITAMINS PO) 1 daily naproxen sodium (ANAPROX) Take 440 mg by mouth 0 11/27/2013 220 MG tabletIndications: as needed. Mild to Moderate Pain Indications: Mild to Moderate Pain. OTHER MEDICAL SUPPLIES ROCÍO Stockings thigh 0 04/13/2016 length Propranolol HCl 60 MG Take 1 capsule by 0 02/11/2012 CP24 mouth every morning. psyllium 0.52 GM capsule Take 1 capsule by 0 08/16/2012 mouth daily. Take 2 caps daily tramadol (ULTRAM) 50 MG Take 1-2 tablets by 15 tablet 0 12/10/2011 tablet mouth every 6 hours as needed for pain. documented as of this encounter ED Notes Merrill Stock MD - 10/20/2011 12:01 AM CST Images from the original note were not included. `` History Chief Complaint Patient presents with ??? Hip Pain Had hip replacement 2008 The history is provided by the patient. No deaf interpreter was used. Ramona Sheikh is a 66 year old female who presents with right hip pain. 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 Rivera at [facility]. She has had similar pain before prior to a hip dislocation and is concerned that her hip may dislocate again. She was sitting atbathtub side shaving her legs when she had her first hip dislocation. She states that this episode of hip pain began tonight with intermittent sensation that hip would give out while walking. Able toambulate, no falls. She has [id number] Aleve. I have reviewed the Medications, Allergies, Past Medical and Surgical History, and Social History inthe Activity[employer] system. Past Medical History Diagnosis Date ??? Rhinitis ??? Fibroid uterus ??? Deviated nasal septum Dr Baer ENT ??? Hypertension ??? PONV (postoperative nausea and vomiting) Past Surgical History Procedure Date ??? C/section, classical 1978 , Classical ??? Cl quest surgical pathology 1989 Breast Reduction ??? Breast biopsy, rt/lt Breat Biopsy RT/LT ??? Hc colonoscopy thru stoma, diagnostic NL ??? Surgical history of - ? Nasal passages microwaved. Dr Baer ENT ??? Mammoplasty reduction ??? Implant stimulator and leads sacral nerve (stage one and two) 05/19/2011 Procedure:IMPLANT STIMULATOR AND LEADS SACRAL NERVE (STAGE ONE AND TWO); Surgeon:LAEX ACUÑA;Location:[facility] No current facility-administered medications on file. Current outpatient prescriptions Medication Sig ??? tramadol [...] Has been taking 2 at night lately. History Social History ??? Marital Status: Single Spouse Name: N/A Number of Children: N/A ??? Years of Education: N/A Occupational History ??? Not on file. Social History Main Topics ??? Smoking status: Never Smoker ??? Smokeless tobacco: Never Used ??? Alcohol Use: No ??? Drug Use: No ??? Sexually Active: Not on file Other Topics Concern ??? Not on file Social History Narrative ??? No narrative on file Allergies Allergen Reactions ??? Propofol Other (See Comments) and Nausea and Vomiting Extreme vertigo and nausea/vomiting ??? Morphine Nausea and Vomiting ??? Codeine Nausea and Vomiting ??? Nickel Rash ??? Latex Rash ??? Tape (Adhesive Tape) Rash Review of Systems Constitutional: Negative for fever. Respiratory: Negative for shortness of breath. Cardiovascular: Negative for chest pain. Gastrointestinal: Negative for abdominal pain. Musculoskeletal: Positive for arthralgias (hip pain). Negative for gait problem. All other systems reviewed and are negative. Physical Exam BP: 130/69 mmHg Pulse: 69 Heart Rate: 69 Temp: 97.7 ??F (36.5 ??C) Resp: 18 Height: 170.2 cm (5' 7) Weight: 82.555 kg (182 lb) SpO2: 100 % Physical Exam Nursing note and vitals reviewed. Constitutional: She is oriented to person, place, and time. She appears well- developed and well-nourished. No distress. Musculoskeletal: Right hip: She exhibits normal range of motion, normal strength, no tenderness, no bony tenderness,no swelling, no crepitus and no deformity. Legs: Neurological: She is alert and oriented to person, place, and time. ED Course Procedures No results found for this or any previous visit (from the past 24 hour(s)). Assessments & Plan (with Medical Decision Making) I have reviewed the nursing notes. I have reviewed the findings, diagnosis, plan and need for follow up with the patient. 66 year old female with right hip pain concerned that she may have dislocated. She is weight bearing. There is no deformity, no shortening, no abnormal rotation, no history of trauma. On examination she has full active and passive range of motion. Does not need imaging. Will provide pain medication. Patient was mostly here because of her fears of having a dislocation which she has had before and was extremely painful. Discharged home with a prescription for Ultram. New Prescriptions TRAMADOL (ULTRAM) 50 MG TABLET Take 1-2 tablets by mouth every 6 hours as needed for pain. Final diagnoses: Hip pain, right This document serves as a record of services personally performed for Merrill Stock MD. It was created on his behalf by Marilu Fernandez medical insurance clerk. The creation of this record is based on the scribe's personal observations and the provider's statements to her. This document has been reviewed and verified by Dr. Stock. [facility]) Emergency Department [address] [place] [address] Merrill Stock MD 10/20/11 0138 CAPPER Bryce Walden RN - 10/19/2011 11:23 PM CST Pt is a 66 year old female who presents to the Emergency Department complaining of off and on right sided hip pain. She had a replacement in 2008. Pain is present when she ambulates and goes away at rest. She had a dislocation of the prosthetic hip shortly after the surgery and is afraid that that is happening again. CAPPER documented in this encounter Plan of Treatment Upcoming Encounters Date Type Specialty Care Team Description 09/10/2022 Office Visit Internal Medicine Margot Branham MD [address] [phone] (Wo rk) documented as of this encounter Visit Diagnoses Diagnosis Hip pain, right Pain in joint, pelvic region and thigh documented in this encounter Care Teams Ethnographic Materials Conservator Relationship Specialty Start Date End Date Mehreen Johnston MD PhD PCP - General Family Practice 03/19/11 11/15/11 documented as of this encounter
--- OUTSIDE RECORDS SUMMARY | 2022-07-30 19:32 | XMS_ITS | Encounter Summary ---
:1945 Author Organization [facility] Address [address] [place] [address]. [place] [address] Care Team Providers Name Role Phone Unavailable Primary Care Provider Unavailable Reason for Referral - Closed Specialty Diagnoses / Procedures Referred By Contact Refer red To Contact Diagnoses Tinnitus Vanessa Mcgregor MD [address] [address] Referral ID Status Reason Start Date Expiration Date Visits Requ ested Visits Authorized [id number] Closed 12/10/2011 06/07/2012 1 1 LANCE DIGITAL PROJECT MANAGER Reason for Visit Reason Comments RECHECK tinnitis, audio today Encounter Details Date Type Department Care Team Description 12/10/2011 Office Visit Ear, Nose and Throat Vanessa Mcgregor MD Tinnitus (Primary Dx) Clinic [address] [facility] 8th Floor, Clinic 8A [facility] [address] [place], [place] [address] [place] [address] [facility] (Work) [place] [address] Social History Tobacco Use Types Packs/Day Years Used Date Smoking Tobacco: Never Smokeless Tobacco: Never Alcohol Use Standard Drinks/Week Comments No 0 (1 standard drink = 0.6 oz pure alcoho l) Sex Assigned at Date Recorded Female 12/20/2018 4:10 PM CDT documented as of this encounter Patient Instructions Patient InstructionsLucero Vázquez RN - 12/10/2011 9:17 AM CST Follow up in our audiology clinic for tinnitus [phone]. Any questions regarding today's visit call [phone]. LANCE DIGITAL PROJECT MANAGER documented in this encounter Progress Notes Vanessa Mcgregor MD - 12/10/2011 10:05 AM CST Ramona Sheikh is here because of bilateral tinnitus. She has been seen by Dr. Brewer in the past but not for this particular reason. She says she has had many years of bilateral tinnitus but that the tinnitus has increased to be constant and more irritating in the last several months. She has a knownlow frequency hearing loss which she feels is stable. 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 Otherwise no otalgia, otorrhea or vertigo. Physical examination: Female in NAD. Facial motion symmetric. Bilateral ear canals clear with intacttympanic membranes and aerated middle ears. Audiogram was reviewed and compared to her previous audiogram. She has a stable bilateral moderate low frequency sensorineural hearing loss that slopes into the mild range. The left has always been very slightly worse in the low frequencies. 100% speech discrimination bilaterally. Assessment and plan: We had a discussion regarding the central etiology of tinnitus. We discussed treatment options. She is interested in seeing audiology for tinnitus therapy and I have put in the referral. LANCE DIGITAL PROJECT MANAGER documented in this encounter Plan of Treatment Upcoming Encounters Date Type Specialty Care Team Description 09/10/2022 Office Visit Internal Medicine Margot Branham MD [address] [place] [phone] (Wo rk) Scheduled Referrals Name Type Priority Associated Diagnoses Order S chedule AUDIOLOGY REFERRAL Referral Routine Tinnitus Ordered: 12/10/2011 documented as of this encounter Visit Diagnoses Diagnosis Tinnitus - Primary Unspecified tinnitus documented in this encounter
--- OUTSIDE RECORDS SUMMARY | 2022-07-30 19:32 | XMS_ITS | Encounter Summary ---
:1945 Author Organization [facility] Address [address] [place] [address]. [place] [address] Care Team Providers Name Role Phone Unavailable Primary Care Provider Unavailable Encounter Details Date Type Department Care Team Description 12/23/2011 Orders Only Ear, Nose and Throat Vanessa Mcgregor MD Tinnitus (Primary Dx) Clinic [address] [facility] 8th Floor, Clinic 8A [address] [place], [place] Building [address] [place] [address] [facility] [place] [address] Social History Tobacco Use Types [...] Office Visit Internal Medicine Margot Branham MD [address] [place] [phone] (Wo rk) documented as of this encounter Visit Diagnoses Diagnosis Tinnitus - Primary Unspecified tinnitus documented in this encounter
--- OUTSIDE RECORDS SUMMARY | 2022-07-30 19:32 | XMS_ITS | Encounter Summary ---
:1945 Author Organization [facility] Address [address] [place] [address]. [place] [address] Care Team Providers Name Role Phone Unavailable Primary Care Provider Unavailable Reason for Visit Reason Onset Date Comments Medication Question 12/22/2011 Encounter Details Date Type Department Care Team Description 12/22/2011 Telephone Adult Call Center Unknown, Provider Medication Question [address] [place], [place] [phone] Social History Tobacco Use Types Packs/Day Years Used Date Smoking Tobacco: Never Smokeless Tobacco: Never Alcohol Use Standard Drinks/Week Comments No 0 (1 standard drink = 0.6 oz pure alcoho l) Sex Assigned at Date Recorded Female 12/20/2018 4:10 PM CDT documented as of this encounter Miscellaneous Notes Telephone Encounter - Alvino Daniels RPH - 12/24/2011 2:25 PM CDT Called patient back, left VM. Wanted to know why patient wants to D/C. She is taking a lower dose, patient can stop without tapering (usually BID dosing). Patient should be calling back. Gave clinic phone number. Telephone Encounter - Emeli Parker - 12/22/2011 4:36 PM CDT Pt is on propanolol 60 mg for a hand tremor and she would like to discontinue the drug. She is calling wondering how to taper off the medication. Will check with pt's primary MD Message sent to Dr. Vang's RN documented in this encounter Plan of Treatment Upcoming Encounters Date Type Specialty Care Team Description 09/10/2022 Office Visit Internal Medicine Margot Branham MD [address] [phone] (Wo rk) documented as of this encounter Visit Diagnoses Not on filedocumented in this encounter
--- OUTSIDE RECORDS SUMMARY | 2022-07-30 19:32 | XMS_ITS | Encounter Summary ---
:1945 Author Organization [facility] Address [address] [place] [address]. [place] [address] Care Team Providers Name Role Phone Unavailable Primary Care Provider Unavailable Reason for Visit Audiology (Routine) - Closed Specialty Diagnoses / Procedures Referred By Contact Refer red To Contact Audiology Diagnoses tinnitus eval ok'd by Vanessa Cho MD U Audiology Procedures BAHA FIT AND FOLLOW UP 420 [facility] [address] [place] [address] [phone] [facility] 283 8th Floor clinic 8B [facility] [place] [address] Phone: Referral ID Status Reason Start Date Expiration Date Visits Requ ested Visits Authorized [id number] Closed 03/15/2012 10/03/2012 2 2 Encounter Details Date Type Department Care Team Description 03/22/2012 Office Visit [facility] Vanessa Mcgregor MD 420 [facility] 396 [place] [address] DIAGNOSIS NOT YET Clinic Audiology Giselle Todd, AuD XXX RESIGNED XXX 420 [facility] 106 [place] [address] DEFINED (Primary Dx) [address] 283 8th Floor clinic [address]B [facility] [address] [facility] [place] [address] Social History Tobacco Use Types Packs/Day Years Used Date Smoking Tobacco: Never Smokeless Tobacco: Never Alcohol Use Standard Drinks/Week Comments No 0 (1 standard drink = 0.6 oz pure alcoho l) Sex Assigned at Date Recorded Female 12/20/2018 4:10 PM CDT documented as of this encounter Progress Notes Damian Perkins - 03/23/2012 6:41 PM CDT Addended by: DAMIAN PERKINS on: 03/23/2012 06:41 PM Modules accepted: Orders, SmartSet CatherineGiselle carterSharmaine - 03/22/2012 3:51 PM CDT AUDIOLOGY REPORT BACKGROUND INFORMATION: Ramona Sheikh was seen in the Audiology Clinic at the [facility] on 03/22/2012 for discussion regarding tinnitus and its effects on her everyday function, referred by Dr. Vanessa Mcgregor. The patient has been seen previously in this clinic on December 10, 2011 for assessment and results indicated moderate low frequency sensorineural hearing loss bilaterally. She describes her tinnitus as 'cicada-like' bilaterally. At times she also notes a sound'plane-like,' more low-frequency. It is worse in quiet and at night TEST RESULTS AND PROCEDURES: The Tinnitus Handicap Inventory (THI) was completed, and a score of 14 obtained (Grade 1). Otoscopy revealed clear ear canals. Tympanograms showed normal eardrum mobility bilaterally. Ipsilateral and contralateral acoustic reflexes were present at several right ipsilateral frequencies, elevated at the rest, and absent contralaterally and for left ear. Distortion product otoacoustic emissions were performed from 750-8000 Hz and were absent bilaterally. Most Comfortable Loudness Levels (MCLs) and Uncomfortable Loudness Levels (UCLs) were assessed from 9088-6539 Hz. Pitch and loudness ranking were also performed, as well as minimum masking level bilaterally. Her tinnitus was interestingly found to be pitch ranked quite high. The rest of the appointment was spent discussing the possible mechanisms for tinnitus, common causes, results from today's testing, statistics, and amplification options. All of her questions were answered. She was also given information on the NanoPotential hearing aids, and the Soundpillow device. Shewas given the contact information for Dr. Danish Voss. SUMMARY AND RECOMMENDATIONS: Today???s tinnitus evaluation was completed and Ms. Sheikh reported that she found it beneficial in discussing and reassuring her about her tinnitus. She does not wish toproceed with amplification and this time, but will contact me in the future if her tinnitus perception becomes more significant, and if she wishes to proceed with amplification. Otherwise it is recommended that the patient follow-up with Dr. Mcgregor for medical management as needed. Please call this clinic with questions regarding these results or recommendations. Steven Cheek, [facility]-A Fitness Worker [address] #[id number] documented in this encounter Plan of Treatment Upcoming Encounters Date Type Specialty Care Team Description 09/10/2022 Office Visit Internal Medicine LogeaisMargot MD [address] [phone] (Wo rk) documented as of this encounter Procedures Procedure Name Priority Date/Time Associated Diagnosis Comme nts AUDIOGRAM, ABR, OAE, Routine 03/22/2012 2:00 PM CDT DIAGNOSIS NOT YET OR TYMP - HIM SCAN DEFINED documented in this encounter Results AUDIOGRAM - HIM Procedure Scan (03/22/2012 2:00 PM CDT) Narrative This result has an attachment that is no t available. Provider Abstract PROCEDURES documented in this encounter Visit Diagnoses Diagnosis DIAGNOSIS NOT YET DEFINED - Primary documented in this encounter
--- OUTSIDE RECORDS SUMMARY | 2022-07-30 19:32 | XMS_ITS | Encounter Summary ---
:1945 Author Organization [facility] Address [address] [place] [address]. [place] [address] Care Team Providers Name Role Phone Unavailable Primary Care Provider Unavailable Encounter Details Date Type Department Care Team Description 12/10/2011 Orders Only [facility] Doctor, MD Regulo Pizarro [facility] lding [address] [facility] - 1st Floor [place], [place] [phone] Social History Tobacco Use Types Packs/Day Years Used Date Smoking Tobacco: Never Smokeless Tobacco: Never Alcohol Use Standard Drinks/Week Comments No 0 (1 standard drink = 0.6 oz pure alcoho l) Sex Assigned at Date Recorded Female 12/20/2018 4:10 PM CDT documented as of this encounter Miscellaneous Notes Initial Assessments - Abstract, Provider - 12/17/2011 7:10 PM CDT documented in this encounter Plan of Treatment Upcoming Encounters Date Type Specialty Care Team Description 09/10/2022 Office Visit Internal Medicine LogMargot sadler MD [address] [place] [phone] (Wo rk) documented as of this encounter Procedures Procedure Name Priority Date/Time Associated Diagnosis Comme nts MA SCREENING Routine 12/10/2011 12:23 PM Results for this DIGITAL BILATERAL POWER PROJECT MANAGER procedure are in the results section. documented in this encounter Results Mammo Screening digital (bilat) (12/10/2011 12:23 PM POWER PROJECT MANAGER) Anatomical Region Laterality Modality Breast Bilateral Other Specimen (Source) Anatomical Collection Method Collection Time Re ceived Time Location / / Volume Laterality 12/10/2011 12:23 PM POWER PROJECT MANAGER Impressions 12/16/2011 8:50 AM CDT Examination: Bilateral digital screening mammography with computer aided detection. Comparison: 10/08/2010, 05/16/2008 History: History of reduction mammoplast y. No current complaints. Findings: There are scattered fibrogland ular densities. There are changes of prior reduction mammoplasty. There has been no change since the comparison study. Impression: BI-RADS 2. Benign findings. Recommendation: Routine screening mammog gonzalez. A letter is being sent to the patient wi th the results. I have personally reviewed the image and initial interpretation and agree with the findings. Lisseth Vang MD IMG MAMMOGRAPHY ORDERABLES documented in this encounter Visit Diagnoses Not on filedocumented in this encounter
--- OUTSIDE RECORDS SUMMARY | 2022-07-30 19:32 | XMS_ITS | Encounter Summary ---
:1945 Author Organization [facility] Address [address] [place] [address]. [place] [address] Care Team Providers Name Role Phone Unavailable Primary Care Provider Unavailable Encounter Details Date Type Department Care Team Description 12/23/2011 Telephone Ear, Nose and Throat Clinic Lucero Vázquez RN 8th Floor, Clinic [address] [phone] Social History Tobacco Use Types Packs/Day Years Used Date Smoking Tobacco: Never Smokeless Tobacco: Never Alcohol Use Standard Drinks/Week Comments No 0 (1 standard drink = 0.6 oz pure alcoho l) Sex Assigned at Date Recorded Female 12/20/2018 4:10 PM CDT documented as of this encounter Miscellaneous Notes Telephone Encounter - Lucero Vázquez RN - 12/23/2011 2:03 PM CDT Pt calls wanting to pursue tinnitus therapy. Orders placed in [place]. Pt to call audiology for appt.-- this message left on pt voice mail. documented in this encounter Plan of Treatment Upcoming Encounters Date Type Specialty Care Team Description 09/10/2022 Office Visit Internal Medicine Margot Branham MD [address] [address] (Wo rk) documented as of this encounter Visit Diagnoses Not on filedocumented in this encounter
--- OUTSIDE RECORDS SUMMARY | 2022-07-30 19:32 | XMS_ITS | Encounter Summary ---
:1945 Author Organization [facility] Address [address] [place] [address]. [place] [address] Care Team Providers Name Role Phone Unavailable Primary Care Provider Unavailable Encounter Details Date Type Department Care Team Description 04/12/2012 Office Visit Anh Mackay CARDIOVASCULAR [facility] CLAUDIA Marsh CNP; LDL GOAL LESS Heart THAN 130 (Primary Dx) [facility] 4th Floor, Clinic [address] [address] Social History Tobacco Use Types Packs/Day Years Used Date Smoking Tobacco: Never Smokeless Tobacco: Never Alcohol Use Standard Drinks/Week Comments No 0 (1 standard drink = 0.6 oz pure alcoho l) Sex Assigned at Date Recorded Female 12/20/2018 4:10 PM CDT documented as of this encounter Last Filed Vital Signs Vital Sign Reading Time Taken Comments Blood Pressure 138/76 04/12/2012 3:24 PM CDT Pulse 62 04/12/2012 3:24 PM CDT Temperature - - Respiratory Rate - - Oxygen Saturation - - Inhaled Oxygen Concentration - - Weight 82.8 kg (182 lb 8 oz) 04/12/2012 3:24 PM CDT Height 170.2 cm (5' 7) 04/12/2012 3:24 PM CDT Body Mass Index 28.58 04/12/2012 3:24 PM CDT documented in this encounter Progress Notes Anh Costa NP - 05/03/2012 10:49 AM CDT Anh Costa NP - 05/03/2012 10:49 AM CDT Anh Costa NP - 04/20/2012 9:43 AM CDT Anh Costa NP - 04/20/2012 9:43 AM CDT Anh Costa NP - 04/14/2012 10:05 AM CDT Anh Costa NP - 04/12/2012 9:22 AM CDT Active Problems Patient Active Problem List Diagnoses Date Noted ??? Urinary retention 04/02/2011 ??? Urgency of urination 04/02/2011 ??? Mixed incontinence urge and stress (male)(female) 04/02/2011 ??? CARDIOVASCULAR SCREENING; LDL GOAL LESS THAN 130 08/03/2010 ??? Elevated Blood Pressure Reading without Diagnosis of Hypertension 09/23/2009 Reason For Visit Patient here for [facility] early detection of atherosclerosis and CVD exam. Pain Evaluation Current history of pain associated with this visit denied HPI Ramona Sheikh is a 66 year old year old female with a history of high blood pressure Nutrition assessment per patient report: Foods with fat/cholesterol (fried foods, fatty meats, junk food): 0 per day. Fruits and vegetables (?? cup cooked, 1 cup raw): 4 or more servings per day. Caffeine (1 cup coffee, soda etc.). 1 servings per day. Alcohol servings (12 oz. beer, 4 oz. wine, 1?? oz. in mixed drink) occasional. Calcium servings (dairy foods, 8 oz. milk, yogurt, cheese, ice cream) 1-0 servings per day. I add salt to my food and or eat salty prepared foods:rare. Special dietary habits: none. Activity: Patient is active 3-4 times per week, for 30-45 minutes. We discussed laboratory results today including lipids targets and how foods influences cholesterol. Weight: She perceived healthy weight is 145 pounds. There is no height or weight on file to calculate BMI. Anormal BMI of 25 is equal to159 pounds. A weight reduction speed of two pounds per month is recommended. PMH Past Medical History Diagnosis Date ??? Rhinitis ??? Fibroid uterus ??? Deviated nasal septum Dr Baer ENT ??? Hypertension ??? PONV (postoperative nausea and vomiting) PSH Past Surgical History Procedure Date ??? C/section, [...] (STAGE ONE AND TWO); Surgeon:ALEX ACUÑA;Location:[facility] OR Current Meds Current Outpatient Prescriptions Medication Sig ??? estradiol (ESTRING) 2 MG vaginal ring [...] TABS Take 1 tablet by mouth daily. Allergies Allergies Allergen Reactions ??? Propofol Other (See Comments) and Nausea and Vomiting Extreme vertigo and nausea/vomiting ??? Codeine Nausea and Vomiting ??? Morphine Nausea and Vomiting ??? Latex Rash ??? Nickel Rash ??? Tape (Adhesive Tape) Rash Family Hx Family History Problem Relation Age of Onset ??? Colon CA Mother colon polyps ??? 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 Musculoskeletal: Negative Vital Signs BP 138/76 Pulse 62 Ht 1.702 m (5' 7) Wt 82.781 kg (182 lb 8 oz) BMI 28.58 kg/m2 Waist:40 in. Hip: 43 in. Physical [...] are noted. Results ABDOMINAL AORTA ULTRASOUND SupraIliac: 2.0 cm < 2.5 Normal SupraRenal 2.0 cm 2.5 - 2.9 Ectatci InfraRenal Proximal 2.0 cm More than 3 cm Anuerysmal InfraRenal Distal 2.0 cm Comments: within normal limit LEFT VENTRICULAR ULTRASOUNDS MEASUREMENTS LVIDD 43 mm Septa 10 mm Posterior 10 mm Recent Labs Lab Results Component Value Date GLC 94 04/12/2012 Lab Results Component Value Date NTBNP 122 04/12/2012 No results found for this basename: ntbnpi Lab Results Component Value Date UCRR 201 04/12/2012 Lab Results Component Value Date MICROL Value: <5 Urine Microalbumin lowest reportable value has been changed from 2 mg/L to 5 mg/L due to a methodology change on January. 04/12/2012 Lab Results Component Value Date MICROALBUMIN Unable to calculate 04/12/2012 Lab Results Component Value Date CRP 3.5 04/12/2012 CRP 10.2* 05/03/2008 Lab Results Component Value Date CHOL 242* 04/12/2012 Lab Results Component Value Date TRIG 136 04/12/2012 Lab Results Component Value Date HDL 79 04/12/2012 Lab Results Component Value Date LDL 136* 04/12/2012 Lab Results Component Value Date VLDL 27 04/12/2012 Lab Results Component Value Date CHOLHDLRATIO 3.1 04/12/2012 Assessment Full report to follow prevention team review of test results with scanned final report. CC Patient Care Team: Lisseth aVng MD as PCP - RASHEED [place] documented in this encounter Plan of Treatment Upcoming Encounters Date Type Specialty Care Team Description 09/10/2022 Office Visit Internal Medicine Margot Branham MD [address] [phone] (Wo rk) Scheduled Orders Name Type Priority Associated Diagnoses Order S chedule NMR LIPO PROFILE Lab Routine CARDIOVASCULAR SCREENING ; LDL GOAL Ordered: 04/12/2012 LESS THAN 130 documented as of this encounter Procedures Procedure Name Priority Date/Time Associated Diagnosis Comme nts HC SPIROMETRY, BREATH Routine 04/12/2012 3:31 CARDIOVASCULAR CAPACITY PM CDT SCREENING; LDL GOAL LESS THAN 130 HC PHOTOGRAPY FUNDUS Routine 04/12/2012 3:31 CARDIOVASCULAR PM CDT SCREENING; LDL GOAL LESS THAN 130 ALBUMIN RANDOM URINE Routine 04/12/2012 8:22 CARDIOVASCULAR Re sults for this QUANTITATIVE AM CDT SCREENING; LDL GOAL procedur e are in LESS THAN 130 the results section. [place] MISCELLANEOUS Routine 04/12/2012 8:21 Result s for this TEST AM CDT procedure are i n the results section. N TERMINAL PRO BNP Routine 04/12/2012 8:21 CARDIOVASCULAR Resu lts for this OUTPATIENT AM CDT SCREENING; LDL GOAL procedur e are in LESS THAN 130 the results section. LIPID REFLEX TO Routine 04/12/2012 8:21 CARDIOVASCULAR Results for this DIRECT LDL PANEL AM CDT SCREENING; LDL GOAL proc edure are in LESS THAN 130 the results section. CRP CARDIAC RISK Routine 04/12/2012 8:21 CARDIOVASCULAR Result s for this AM CDT SCREENING; LDL GOAL procedur e are in LESS THAN 130 the results section. GLUCOSE Routine 04/12/2012 8:21 CARDIOVASCULAR Results fo r this AM CDT SCREENING; LDL GOAL procedur e are in LESS THAN 130 the results section. EKG 12 LEAD Routine 04/12/2012 documented in this encounter Results Microalbumin quantitative random urine (04/12/2012 8:22 AM CDT) Component Value Ref Test Analysis Performed At [facility] [email or web address] Method Time Signature Creatinine 201 mg/dL [facility] Urine [facility] Albumin Urine <5 mg/L [facility] mg/L Urine Microalbumin lowest re portable value has been changed from 2 mg/L to 5 [facility] mg/L due to a methodology change on January. [facility] Albumin Urine Unable to 0 - 25 [facility] mg/g Cr calculate mg/g Cr [facility] Specimen Anatomical Collection Method Collection Time Receive d Time (Source) Location / / Volume Laterality Urine specimen 04/12/2012 8:22 AM 012 8:23 (specimen) CDT AM CDT Anh Costa APRN CIVIL ENGINEERING PROFESSIONAL LAB - URINE ORDERABLES Performing Organization Address City/State/ZIP Code Phon e Number [facility] [address] [place] [address] [facility] [place] Miscellaneous Test (04/12/2012 8:21 AM CDT) Component Value Ref Test Analysis Performed At [facility] [email or web address] Method Time Signature Result SEE NOTE [facility] (Note) [facility]IV[facility]ITY Test name ?Result ?? Units ??RefIntvl [facility] LDL Particle Number by NMR ?1578 H ??nmol/L <10 00 ? Reference Ranges (Percentiles)(F2) Low (<20th percentile) ?< 1000 Moderate (20th to 49th percentile) ?10 00 - 1299 Borderline High (50th to 79th percentile) ? 1300 - 1599 High (80th to 94th percentile) ? 1600 - 2000 Very High (>95th percentile) ?> 2000 Small LDL Particle Number ? < 90 ?nmol/L <= 527 ? Reference Ranges(F3) ?Low ?< 117 ?Moderate ? 117 - 526 ?Borderline ? 527 - 839 ?High ? >839 Total Cholesterol ?219 H ?? mg/d L <200 LDL Particle Size ? 22.2 ?nm > 20.5 Large HDL Particle Number ? 12.1 ?umol/L >= 4.8 Large VLDL Particle Number ? 2.8 H ??nmol/L <= 2.7 Triglycerides ?145 ? m g/dL <150 HDL Cholesterol ? 67 ? mg /dL >=40 LDL Cholesterol ?123 H ?? mg/ dL <100 ? Reference Range ?Optimal ?< 100 ?Near Optimal ? 100 - 129 ?Borderline High ?130 - 159 ?High ? 160 - 189 ?Very High ?>= 190 HDL Size ? 9.6 ?nm >= 9.2 VLDL Size ? 55.9 H ?nm <= 46.6 HDL Particle Number ? 37.0 ?umol/L >= 30.5 LP Insulin Resistance Score ? 35 ? <= 45 (F1)Reference intervals shown are the 50th percentile of the [employer] reference population comprising 4,588 men and women without known CVD or diabetes and not on lipid medication. (F2) Reference population comprises 5,362 men and women not on lipid medication enrolled in the Multi-Ethnic Study of Atherosclerosis (MITCHELL). ??Hawa et al. Atherosclerosis 2007. (F3) Small LDL-P and LDL Size are associated with CVD risk, but not after LDL-P is taken into account. Small LDL-P, LDL Particle Size, Large HDL-P, Large VLDL-P, VLDL Size, HDL Size, HDL Particle, and LPIR score have been validated by [employer] but not cleared by US FDA; the clinical utility of these test results has not been fully established Performed at: [address] [address] Test Name NMR LIPO [facility] Send Outs [id number] [facility] Test [place] Code CAMPUS LABS Send Outs [facility] Specimen CAMPUS LABS Specimen Anatomical Collection Method Collection Time Receive d Time (Source) Location / / Volume Laterality 04/12/2012 8:21 AM 2 CDT 11:32 AM CDT Anh Costa APRN CIVIL ENGINEERING PROFESSIONAL LAB - BLOOD ORDERABLES Performing Organization Address City/State/ZIP Code Phon e Number [facility] [address] [place], [place] [phone] [place] [address] LABS Glucose (04/12/2012 8:21 AM CDT) athologist Signature Glucose 94 60 - 99 [facility] mg/dL [facility] Specimen Anatomical Collection Method Collection Time Receive d Time (Source) Location / / Volume Laterality Blood specimen 04/12/2012 8:21 AM 012 8:22 (specimen) CDT AM CDT Anh Costa APRN, CNP LAB - BLOOD ORDERABLES Performing Organization Address [facility] Phon e Number [facility] [address] [place], [place] [phone] [place] [address] LABS CRP cardiac risk (04/12/2012 8:21 AM CDT) P athologist Signature CRP Cardiac 3.5 mg/L [facility] Risk [facility] Comment: Reference Values: Low Risk: ? <1.0 mg/L Average Risk: ? 1.0-3.0 mg/L High Risk: ?>3.0 mg/L Acute Inflammation: >8.0 mg/L Specimen Anatomical Collection Method Collection Time Receive d Time (Source) Location / / Volume Laterality Blood specimen 04/12/2012 8:21 AM 012 8:22 (specimen) CDT AM CDT Anh Costa APRN, CNP LAB - BLOOD ORDERABLES Performing Organization Address [facility] Phon e Number [phone] [place] [address] LABS N terminal pro BNP outpatient (04/12/2012 8:21 AM CDT) P athologist Signature N-Terminal Pro 122 0 - 125 [facility] Bnp pg/mL [facility] Comment: Reference range shown and results flagge [...] Location / / Volume Laterality Blood specimen 04/12/2012 8:21 AM 012 8:22 (specimen) CDT AM CDT Anh Costa APRN CIVIL ENGINEERING PROFESSIONAL LAB - BLOOD ORDERABLES Performing Organization Address City/[facility]/ZIP Code Phon e Number [facility] [address] [place] [address] [facility] (ABNORMAL) Lipid panel reflex to direct LDL (04/12/2012 8:21 AM CDT) P athologist Signature Cholesterol 242 (H) 0 - 200 [facility] mg/dL [facility] Comment: LDL Cholesterol is the primary guide to therapy. The NCEP recommends further evaluation of: patients with cholesterol greater than 200 mg/dL if additional risk facto rs are present, cholesterol greater than 240 mg/dL, triglycerides greater than 1 50 mg/dL, or HDL less than 40 mg/dL. Triglycerides 136 0 - 150 mg/dL [facility] HDL Cholesterol 79 50 - 110 mg/dL [facility] LDL Cholesterol Calculated 136 (H) 0 - 129 mg/dL [facility] Comment: LDL Cholesterol is the primary guide to therapy: LDL-cholesterol goal in high risk patients is <100 mg/dL and in very high risk patients is <70 mg/dL. VLDL-Cholesterol 27 0 - 30 mg/dL [facility] Cholesterol/HDL Ratio 3.1 0.0 - 5.0 [facility] Specimen Anatomical Collection Method Collection Time Receive d Time (Source) Location / / Volume Laterality Blood specimen 04/12/2012 8:21 AM 012 8:22 (specimen) CDT AM CDT Anh Costa APRN, CNP LAB - BLOOD ORDERABLES Performing Organization Address City/[facility]/ZIP Code Phon e Number [facility] [address] [place] [address] [facility] EKG 12 LEAD (04/12/2012) Narrative This result has an attachment that is no t available. Provider Abstract ECG ORDERABLES documented in this encounter Visit Diagnoses Diagnosis CARDIOVASCULAR SCREENING; LDL GOAL LESS THAN 130 - Primary documented in this encounter
--- OUTSIDE RECORDS SUMMARY | 2022-07-30 19:32 | XMS_ITS | Encounter Summary ---
:1945 Author Organization [facility] Address [address] [place] [address]. [place] [address] Care Team Providers Name Role Phone Mehreen Johnston MD PhD Primary Care Provider [phone] Reason for Visit Reason Onset Date Comments Previsit 08/12/2011 Encounter Details Date Type Department Care Team Description 08/12/2011 Telephone UROLOGY CLINIC AND Francisco Landeros MD [facility]visit [facility] [address] [place] [address] [facility] [address] 4[address] FLOOR, [address] 420 [facility], [facility] [address] [place], [place] [phone] Social History Tobacco Use Types Packs/Day Years Used Date Smoking Tobacco: Never Smokeless Tobacco: Never Alcohol Use Standard Drinks/Week Comments No 0 (1 standard drink = 0.6 oz pure alcoho l) Sex Assigned at Date Recorded Female 12/20/2018 4:10 PM CDT documented as of this encounter Miscellaneous Notes Telephone Encounter - Kailee Akhtar - 08/12/2011 12:59 PM CST Patient is coming in for follow up interstim. 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
--- OUTSIDE RECORDS SUMMARY | 2022-07-30 19:32 | XMS_ITS | Encounter Summary ---
:1945 Author Organization [facility] Address [address] [place] [address]. [place] [address] Care Team Providers Name Role Phone Unavailable Primary Care Provider Unavailable Reason for Visit Reason Onset Date Comments Pre Visit Planning - Done 04/11/2012 Dea lieberman Encounter Details Date Type Department Care Team Description 04/11/[address] [facility] Anh Costa, Pre Visit Planning - Physicians Heart DOWN FILLER PAINTER PLATE Done [facility] Building 4th Floor, Clinic [address] [phone] Social History Tobacco Use Types Packs/Day Years [...] Visit Internal Medicine Margot Branham MD [address] [place] [phone] (Wo rk) documented as of this encounter Visit Diagnoses Not on filedocumented in this encounter
--- OUTSIDE RECORDS SUMMARY | 2022-07-30 19:32 | XMS_ITS | Encounter Summary ---
:1945 Author Organization [facility] Address [address] [place] [address]. [place] [address] Care Team Providers Name Role Phone Unavailable Primary Care Provider Unavailable Encounter Details Date Type Department Care Team Description 12/24/2011 Telephone Colon and Rectal Surgery Merrill Garcia MD Clinic [address] [facility] [address] [place] [address] [facility] 1st Floor, Clinic 1E [address] [place] [phone] Social History Tobacco Use Types Packs/Day Years Used Date Smoking Tobacco: Never Smokeless Tobacco: Never Alcohol Use Standard Drinks/Week Comments No 0 (1 standard drink = 0.6 oz pure alcoho l) Sex Assigned at Date Recorded Female 12/20/2018 4:10 PM CDT documented as of this encounter Miscellaneous Notes Telephone Encounter - Deja Purcell V - 12/24/2011 9:55 AM CDT Patient called and left a message requesting an appointment regarding hemorrhoids. 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 Patient states that she's seen Dr. Bosch in the past. Called patient and left a message offering 01/19/[address] Garcia to accommodate her schedule. Explained to patient that Dr. Bosch doesn't have appointments before 3:30 PM. Left my direct number to be reached and schedule. documented in this encounter Plan of Treatment Upcoming Encounters Date Type Specialty Care Team Description 09/10/2022 Office Visit Internal Medicine Margot Branham MD [address] [phone] (Wo rk) documented as of this encounter Visit Diagnoses Not on filedocumented in this encounter
--- OUTSIDE RECORDS SUMMARY | 2022-07-30 19:32 | XMS_ITS | Encounter Summary ---
:1945 Author Organization [facility] Address [address] [place] [address]. [place] [address] Care Team Providers Name Role Phone Mehreen Johnston MD PhD Primary Care Provider [phone] Encounter Details Date Type Department Care Team Description 08/19/2011 Office Visit UROLOGY CLINIC AND Carlota Landeros Uri nary retention; [facility] U[facility] ur[facility] [address] [facility] [place] [address] [place], [place] BUILDING [address] 4TH FLOOR, [address] [facility] [address] [place] [address] Social History Tobacco Use Types Packs/Day Years Used Date Smoking Tobacco: Never Smokeless Tobacco: Never Alcohol Use Standard Drinks/Week Comments No 0 (1 standard drink = 0.6 oz pure alcoho l) Sex Assigned at Date Recorded Female 12/20/2018 4:10 PM CDT documented as of this encounter Progress Notes Carlota Landeros MD - 08/19/2011 3:59 PM CST Reason for Visit: f/u on interstim from 05/19/11 Clinical data: Ms. Sheikh is a 65 y.o female with hx of urinary urgency and UI who underwent interstim. She returns today in f/u. She is doing well. Her accidents have become very rare. She is pleased but is still working with the different programs to see if her stream can also improve and has difficulty changing the settings so she presents today for further help with this. A/P: 65 y/o female with the above -Will assist with setting change -f/u as needed. Thank you for allowing me to participate in the care of Ms. Ramona Sheikh and I will keep you updated on her progress. Carlota Landeros MD 10 min spent with patient, >50% in discussion AND PLANT SCIENTIST documented in this encounter Plan of Treatment Upcoming Encounters Date Type Specialty Care Team Description 09/10/2022 Office Visit Internal Medicine Margot Branham MD [address] [place] [phone] (Wo rk) documented as of this encounter Visit Diagnoses Diagnosis Urinary retention Retention of urine, unspecified Urgency of urination documented in this encounter Care Teams Seamless Tube Mill Operator Relationship Specialty Start Date End Date Mehreen Johnston MD PhD PCP - General Family Practice 03/19/11 11/15/11 documented as of this encounter
--- OUTSIDE RECORDS SUMMARY | 2022-07-30 19:32 | XMS_ITS | Encounter Summary ---
:1945 Author Organization [place] Address [address] [place] [address]. [place] [address] Care Team Providers Name Role Phone Unavailable Primary Care Provider Unavailable Reason for Visit Reason Onset Date Comments Pre Visit Planning - Done 03/10/2012 Encounter Details Date Type Department Care Team Description 03/10/2012 Telephone UROLOGY CLINIC AND Carlota Landeros, Pre Visit Planning - [facility] MD Done AND [facility] [id number] [facility] 100 4TH FLOOR, [address] [place] [address] [place] [address] Social History Tobacco Use Types Packs/Day Years Used Date Smoking Tobacco: Never Smokeless Tobacco: Never Alcohol Use Standard Drinks/Week Comments No 0 (1 standard drink = 0.6 oz pure alcoho l) Sex Assigned at Date Recorded Female 12/20/2018 4:10 PM CDT documented as of this encounter Miscellaneous Notes Telephone Encounter - Essence Joiner LPN - 03/10/2012 9:25 AM CDT Called patient regarding the interstim do we need to call rep to have them come. documented in this encounter Plan of Treatment Upcoming Encounters Date Type Specialty Care Team Description 09/10/2022 Office Visit Internal Medicine [place], MD Margot [address] [phone] (Wo rk) documented as of this encounter Visit Diagnoses Not on filedocumented in this encounter
--- OUTSIDE RECORDS SUMMARY | 2022-07-30 19:32 | XMS_ITS | Encounter Summary ---
:1945 Author Organization [facility] Address [address] [place] [address]. [place] [address] Care Team Providers Name Role Phone Unavailable Primary Care Provider Unavailable Encounter Details Date Type Department Care Team Description 04/08/2012 Orders Only Anh Mackay CARDIOVASCULAR SCREENING; [facility] CLAUDIA Marsh CNP LDL G OAL LESS THAN 130 Heart (Primary Dx) [address] Floor, Clinic [address] [phone] Social History Tobacco Use Types Packs/Day Years [...] 09/10/2022 Office Visit Internal Medicine LogeaisMargot MD [address] [place] [phone] (Wo rk) documented as of this encounter Visit Diagnoses Diagnosis CARDIOVASCULAR SCREENING; LDL GOAL LESS THAN 130 - Primary documented in this encounter
--- OUTSIDE RECORDS SUMMARY | 2022-07-30 19:32 | XMS_ITS | Encounter Summary ---
:1945 Author Organization [facility] Address [address] [place] [address]. [place] [address] Care Team Providers Name Role Phone Unavailable Primary Care Provider Unavailable Encounter Details Date Type Department Care Team Description 12/09/2011 Orders Only Ear, Nose and Throat Vanessa Mcgregor MD Tinnitus (Primary Dx) Clinic [address] [facility] 8th Floor, Clinic 8A [address] [place], [place] Building [address] [place] [address] [facility] [place] [address] Social History Tobacco Use Types [...] Office Visit Internal Medicine Margot Branham MD [address] [place] [phone] (Wo rk) documented as of this encounter Visit Diagnoses Diagnosis Tinnitus - Primary Unspecified tinnitus documented in this encounter
--- OUTSIDE RECORDS SUMMARY | 2022-07-30 19:32 | XMS_ITS | Encounter Summary ---
:1945 Author Organization [place] Address [address] [place] [address]. [place] [address] Care Team Providers Name Role Phone Unavailable Primary Care Provider Unavailable Reason for Referral - Closed Specialty Diagnoses / Procedures Referred By Contact Refer red To Contact Diagnoses Tinnitus Vanessa Mcgregor MD [address] [address] Referral ID Status Reason Start Date Expiration Date Visits Requ ested Visits Authorized [id number] Closed 12/25/2011 06/22/2012 1 1 Encounter Details Date Type Department Care Team Description 12/25/2011 Orders Only Ear, Nose and Throat Vanessa Mcgregor MD Tinnitus (Primary Dx) Clinic [address] [facility] 8th Floor, Clinic 8A [address] [place], [place] Building [address] [place] [address] [facility] [place] [address] Social History Tobacco Use Types Packs/Day Years Used Date Smoking Tobacco: Never Smokeless Tobacco: Never Alcohol Use Standard Drinks/Week Comments No 0 (1 standard drink = 0.6 oz pure alcoho l) Sex Assigned at Date Recorded Female 12/20/2018 4:10 PM CDT documented as of this encounter Nursing Notes 12/25/2011 12:00 PM CDT >> Lucero Vázquez RN WedDec 25, 2011 2:15 PM Pt requested appt/ # for health psychologist, to help deal with tinnitus. Referral done. Message left on pt voice mail with # for scheduling [phone]. documented in this encounter Plan of Treatment Upcoming Encounters Date Type Specialty Care Team Description 09/10/2022 Office Visit Internal Medicine LogeaMargot man MD [address] [place] [phone] (Wo rk) Scheduled Referrals Name Type Priority Associated Diagnoses Order S chedule MISCELLANEOUS REFERRAL Referral Routine Tinnitus Order ed: 12/25/2011 documented as of this encounter Visit Diagnoses Diagnosis Tinnitus - Primary Unspecified tinnitus documented in this encounter
--- OUTSIDE RECORDS SUMMARY | 2022-07-30 19:32 | XMS_ITS | Encounter Summary ---
:1945 Author Organization [place] Address [address] [place] [address]. [place] [address] Care Team Providers Name Role Phone Unavailable Primary Care Provider Unavailable Reason for Visit Reason Onset Date Comments Pre Visit Planning - Done 02/10/2012 Hypertension Encounter Details Date Type Department Care Team Description 02/10/2012 PRE VISIT [facility] Damian Villanueva, Pre Visit Planning - Physicians Heart MD Done (Hypertension) [facility] [address] [facility] Building 508 4th Floor, Clinic 4B [place] [id number] [place] [address] [place] [address] Social History Tobacco Use Types [...] Internal Medicine Margot Branham MD [address] [phone] (Wo rk) documented as of this encounter Visit Diagnoses Not on filedocumented in this encounter
--- OUTSIDE RECORDS SUMMARY | 2022-07-30 19:33 | XMS_ITS | Encounter Summary ---
:1945 Author Organization [place] Address [address] [place] [address]. [place] [address] Care Team Providers Name Role Phone Unavailable Primary Care Provider Unavailable Reason for Visit Reason Onset Date Comments Results 01/14/2011 Encounter Details Date Type Department Care Team Description 01/14/2011 Telephone Women's Health Mehreen Green MD Results Mason PhD [address] 1st Floor, Clinic [address] [place], [place] [address] [place] [address] [place] [phone] Social History Tobacco Use Types Packs/Day Years Used Date Smoking Tobacco: Never Smokeless Tobacco: Never Alcohol Use Standard Drinks/Week Comments No 0 (1 standard drink = 0.6 oz pure alcoho l) Sex Assigned at Date Recorded Female 12/20/2018 4:10 PM CDT documented as of this encounter Miscellaneous Notes Telephone Encounter - Renee Hodge - 01/14/2011 3:[address] Miguel original letter and mailed to patient. Left patient VM message that this was done. Telephone Encounter - Renee Hodge - 01/14/2011 3:01 PM CDT Message copied by RENEE HODGE on WedJan 14, 2011 3:01 PM ------ Message from: GWENDOLYN FUCHS Created: WedJan 14, 2011 1:10 PM Contact: Pt would like test results mailed to pt's home address documented in this encounter Plan of Treatment Upcoming Encounters Date Type Specialty Care Team Description 09/10/2022 Office Visit Internal Medicine Logeais, MD Margot [address] [address] (Wo rk) documented as of this encounter Visit Diagnoses Not on filedocumented in this encounter
--- OUTSIDE RECORDS SUMMARY | 2022-07-30 19:33 | XMS_ITS | Encounter Summary ---
:1945 Author Organization [place] Address [address] [facility] [place] [address] Care Team Providers Name Role Phone Mehreen Johnston MD PhD Primary Care Provider Encounter Details Date Type Department Care Team Description 05/13/2011 Telephone [facility] Quita Salguero, Emergency Department ROTARY SOIL STABILIZER [address] [facility] [address] [place] [address] [place], [place] [address] (Wo rk) Social History Tobacco Use Types [...] Office Visit Internal Medicine Margot Branham MD [address] [place] [phone] (Wo rk) documented as of this encounter Visit Diagnoses Not on filedocumented in this encounter Care Teams Machine Lay Out Worker Relationship Specialty Start Date End Date Mehreen Johnston MD PhD PCP - General Family Practice 03/19/11 11/15/11 documented as of this encounter
--- OUTSIDE RECORDS SUMMARY | 2022-07-30 19:33 | XMS_ITS | Encounter Summary ---
:1945 Author Organization [place] Address [address] [place] [address]. [place] [address] Care Team Providers Name Role Phone Mehreen Johnston MD PhD Primary Care Provider Reason for Visit Reason Comments Other ppd placement Encounter Details Date Type Department Care Team Description 04/15/2011 Office Visit Gynecologic Cancer Mehreen Johnston MD PhD [address] [place] [address] [phone] [facility] Nurse, [facility] care (Primary Dx) [facility] 1st Floor, Clinic [address] [place] [phone] Social History Tobacco Use Types Packs/Day Years Used Date Smoking Tobacco: Never Smokeless Tobacco: Never Alcohol Use Standard Drinks/Week Comments No 0 (1 standard drink = 0.6 oz pure alcoho l) Sex Assigned at Date Recorded Female 12/20/2018 4:10 PM CDT documented as of this encounter Nursing Notes 04/15/2011 11:30 AM CDT >> SEAMUS LAURA Wed Apr 15, 2011 2:02 PM Patient is here for ppd placement. PPD placed in left forearm. documented in this encounter Plan of Treatment Upcoming Encounters Date Type Specialty Care Team Description 09/10/2022 Office Visit Internal Medicine LogeaisMargot MD [address] [phone] (Wo rk) documented as of this encounter Procedures Procedure Name Priority Date/Time Associated Diagnosis Comme nts HC TB INTRADERMAL Routine 04/17/2011 11:36 Preventative health Results for this TEST AM CDT care procedure are i n the results section. documented in this encounter Results TB INTRADERMAL TEST (04/17/2011 11:36 AM CDT) P athologist Signature PPD Induration 0 0 - 5 mm PPD Redness n/a mm Mehreen Johnston MD PhD IMMUNIZATION/INJECTION documented in this encounter Visit Diagnoses Diagnosis Preventative health care - Primary Routine general medical examination at a health care facility documented in this encounter Care Teams Longshore Equipment Operator Relationship Specialty Start Date End Date Mehreen Johnston MD PhD PCP - General Family Practice 03/19/11 11/15/11 documented as of this encounter
--- OUTSIDE RECORDS SUMMARY | 2022-07-30 19:33 | XMS_ITS | Encounter Summary ---
:1945 Author Organization [place] Address [address] [place] [address]. [place] [address] Care Team Providers Name Role Phone Mehreen Johnston MD PhD Primary Care Provider [phone] Reason for Visit Auth/Cert - Closed Specialty Diagnoses / Procedures Referred By Contact Refer red To Contact Surgery Diagnoses Urinary urgency Ur Periop Procedures IMPLANT STIMULATOR AND LEADS SACRAL NERVE (STAGE ONE AND TWO) [address] [place] [address] Phone: Fax: Referral ID Status Reason Start Date Expiration Date Visits Requ ested Visits Authorized [id number] Closed 05/01/2011 10/28/2011 1 1 Encounter Details Date Type Department Care Team Description 05/19/2011 Hospital Encounter UR PREOP/PHASE II Nakib Nissrine Urgency of urination [address] [place] [address] [address] [phone] [address] [place] [address] Social History Tobacco Use Types Packs/Day Years Used Date Smoking Tobacco: Never Smokeless Tobacco: Never Alcohol Use Standard Drinks/Week Comments No 0 (1 standard drink = 0.6 oz pure alcoho l) Sex Assigned at Date Recorded Female 12/20/2018 4:10 PM CDT documented as of this encounter Last Filed Vital Signs Vital Sign Reading Time Taken Comments Blood Pressure 144/75 05/19/2011 1:35 PM CDT Pulse - - Temperature 36.2 ??C (97.2 ??F) 05/19/2011 1:35 PM CDT Respiratory Rate 15 05/19/2011 1:35 PM CDT Oxygen Saturation 99% 05/19/2011 1:35 PM CDT Inhaled Oxygen Concentration - - Weight 83.6 kg (184 lb 4.9 oz) 05/19/2011 9:00 AM CDT Height 168.9 cm (5' 6.5) 05/19/2011 9:00 AM CDT Body Mass Index 29.3 05/19/2011 9:00 AM CDT documented in this encounter Discharge Instructions Discharge InstructionsMertoglBibi Stein - 05/19/2011 12:29 PM CDT -You may shower and get incisions wet starting 48 hrs after surgery but do not scrub incisions or submerge wounds (aka, bath, pool, hot tub, ect.) for 2 weeks. Remove the dressing (if placed) after 48 hrs from surgery. If dermabond was used, avoid applying any lotions or ointments. You may leave open to air or cover with dry gauze if needed for comfort or to protect clothing from drainage. -Do not drive until you can withstand pressing the break peddle quickly and fully without abdominal pain. Do not operate a motor vehicle while taking narcotics. -If you develop constipation, take stool softeners such as colace or miralax but stop if you developdiarrhea. Wean yourself off of narcotics. -If you develop any fever/chills, worsening pain, redness, swelling, or drainage from your wound please call or return sooner than your regularly scheduled visit. You may call the Urology clinic [phone] during daytime hours or [phone] and ask to speak with the Urology resident chronometer repairer after hours. [facility] [place] [facility] Adult Discharge Orders & Instructions [...] spinal anesthesia). To contact a doctor, call or: ??? [phone] and ask for the resident chronometer repairer for (answered 24 hours a day) ??? Emergency Department: [facility]: [phone] (TTY for hearing impaired: [phone]) [facility]: [phone] (TTY for hearing impaired: [phone]) documented in this encounter Medications at Time of Discharge Medication Sig Dispensed Refills Start Date End Date cholecalciferol (VITAMIN Take 2 tablets by 0 D3) 1000 UNIT tablet mouth daily. OTHER MEDICAL SUPPLIES ROCÍO stockings knee 0 length USE DIRECTED . cephALEXin (KEFLEX) 500 Take 1 capsule by 15 capsule 0 05/1905/24/2011 MG capsuleIndications: mouth 3 times daily Urgency of urination for 5 days. Calcium Carbonate-Vitamin 0 11/27/2013 D (CALCIUM 500 + D PO) diphenhydrAMINE Take 25 mg by mouth 0 02/11/2012 (BENADRYL) 25 MG tablet every 6 hours as needed. Has been taking 2 at night lately. estradiol (ESTRACE) 0.1 Place 2 g vaginally 42.5 g 3 02/11/2012 MG/GM vaginal twice a week. Use creamIndications: 10/05 applicator Menopause twice weekly fish oil-omega-3 fatty Take 1 capsule by 0 04/10/2019 acids (OMEGA 3) 1000 MG mouth 2 times daily capsule GLUCOSAMINE PO Take 1 capsule by 0 07/2012 mouth every 12 hours. GUAIFENESIN-POT Take 100 mg by 0 12/09 GUAIACOL-DM OR mouth. Take one tablet twice daily hydrocodone-acetaminophen Take 1 tablet by 20 tablet 0 05/0406/03/2011 5-325 MG per mouth every 6 hours tabletIndications: as needed for pain. Urgency of urination Magnesium 200 MG TABS Take 4 tablets by 0 04/10/2019 mouth daily. Multiple Vitamin Take by mouth. Take 0 12/10/2011 (MULTIVITAMINS PO) 1 daily naproxen sodium (ANAPROX) Take 440 mg by 0 11/27/2013 220 MG tabletIndications: mouth as needed. Mild to Moderate Pain Indications: Mild to Moderate Pain. OTHER MEDICAL SUPPLIES ROCÍO Stockings thigh 0 04/13/2016 length Propranolol HCl 60 MG Take 1 capsule by 0 02/11/2012 CP24 mouth every morning. psyllium 0.52 GM capsule Take 1 capsule by 0 08/16/2012 mouth daily. Take [address] 1 patch onto 0 05/19/201106/03 (TRANSDERM-SCOP) 1.5 MG the skin every 72 patch 72 hrIndications: hours. Pt placed it Surgery at 0530 this morning. Indications: Operation documented as of this encounter H&P Notes Carlota Landeros - 06/09/2011 1:24 PM CDT documented in this encounter Nursing Notes Bibi Houston - 05/19/2011 1:28 PM CDT 1330 Dressed and waiting for ride and meds. Nikkie Hodges RN - 05/19/2011 1:20 PM CDT reprt was given and assumed c/o pt. Assisted to BR and pt is getting dressed. Priya Bingham - 05/19/2011 12:26 PM CDT Report to Jacque Robledo RN Mitul Dover - 05/19/2011 9:08 AM CDT Pt had scopalamine patch behind her right ear that was prescribed by her primary MD Dr. Desmond Yo and she put it on this morning. She also has three accupressure points in that right ear that wereplaced yesterday by Dr. Yo. Sarina Cruz, MODESTA - 05/18/2011 11:26 AM CDT Laterality verified as LEFT by Dr. Landeros, per MODESTA Pelaez of Dr. Landeros. documented in this encounter OR Notes OR Anesthesia - Carlota Landeros - 06/09/2011 12:56 PM CDT documented in this encounter Miscellaneous Notes Op Note - Carlota Landeros - 05/19/2011 11:50 AM CDT Urology Operative Summary Pre-operative diagnosis: Urinary urgency and frequency and urge incontinence Post-operative diagnosis: Same Procedure: Stage I and II Interstim placement Interpretation of fluoroscopic imaging Surgeon: Carlota Landeros MD Vehicle Monitor Technician(s): Arlette Fernandez Anesthesia: Local anesthesia with MAC sedation Estimated blood loss: Less than 10 ml Complications: None Condition: Patient taken to recovery in stable condition. Findings: Placed tined lead in the left S3 foramen with biplanar flouroscopic guidance. The interstim generator was placed in the left flank. Indications: Ramona Sheikh is a 65 year old woman with urinary urgency and frequency and urge incontinence refractory to anti-cholinergics. She elected to proceed with a PNE which proved to be beneficial and she has therefore elected to proceed with Interstim placement understanding the risks for infection, pain, bleeding, and the need for future procedures and risks of anesthesia. She received IV antibiotics prior to the procedure initiation. Procedure: The patient was identified correctly, consented and placed in the prone position. The patient's sacral area was prepped and draped in the usual sterile fashion. Using the fluoroscope in the AP position the medial aspects of the sacral foramena were identified and marked. The fluoroscope wasplaced in the lateral position and the S3 foramen was identified and marked. The films from the PNE were called up so as to evaluate for identical placement of the permanent electrode. Marcaine with bicarb was injected at the insertion site to anesthetize the skin. Once this was achieved a 3 1/2 inch needle was inserted on the left side until it was passed through the S3 foramen as seen on fluoroscopy to match the previous placement. Next the needle was tested and the patient had asensory and motor responses at low amplitude, specifically danial and sensation in the vagina. At this point the stilette was removed from the insertion needle and passer was placed. Her incision was widened to allow the dilator through which our permanent electrode was passed until the appropriate position on fluoroscopy. The electrode was tested and found to have good motor and sensory response atlow amplitude. The dilator was then removed under fluoroscopy ensuring our electrode was not displaced. At this point a second incision approximately 4 cm in length was created at the left lower flank. We used marcaine with bicarb at the insertion site were injected to anesthetize the skin. Electrocautery was used to dissect down to the gluteal fascia. Herein we created a small pouch that would accommodate our Interstim generator. We then tunneled and connected the permanent electrode to the generator. We then closed jm's with interrupted vicryl stitches, deep subcutaneous tissue with interruptedvicryl, closed the deep dermis with a interrupted vicryl stitch and and then reapproximated the skinwith dermabond at both the generator and electrode incisions. A small island dressing was then placed over these sites. The patient was awoken from anesthesia and returned to the supine position. All instrument and counts were correct at the end of the procedure. Plan: Ramona Sheikh is a 65 year old woman who underwent stage I and II interstim placement today after having a successful PNE. She will follow up for a wound check in clinic in two weeks. May 19, 2011 Deya Fernandez Brief Op Note - Carlota Landeros - 05/19/2011 11:36 AM CDT Pre-operative diagnosis: Urinary urge and incontinence Post-operative diagnosis: Same Procedure: Implant stimulator and leads Sacral Nerve (Stage one and two) Attending Surgeon: Dalton Landeros Assistants: Edyta Tineo Anesthesia: MAC Blood loss: Minimal Fluids: 1200 mL Blood transfusion: None Total urine output: Not recorded Complications: None Procedure: Went well. Patient responded well at low to mid-range stimulation Provider Notification - Mitul Dover - 05/19/2011 9:00 AM CDT Pt has arthritis of the hands, knees and hips. Pt has had a Right Hip Replacement. Pt can do all herADL's, but does have pain with them. documented in this encounter Plan of Treatment Upcoming Encounters Date Type Specialty Care Team Description 09/10/2022 Office Visit Internal Medicine Margot Branham MD [address] [address] (Wo rk) Pending Results Name Type Priority Associated Diagnoses Date/Ti me X-ray Surgery PAPA L/T Imaging Timed 05/19 11:53 AM CDT 5 Min Fluoro documented as of this encounter Procedures Procedure Name Priority Date/Time Associated Diagnosis Comme nts XR SURGERY PAPA FLUORO Timed 05/19/2011 11:53 AM CDT LESS THAN 5 MIN INSERTION, ELECTRODE 05/19/2011 10:15 AM CDT Urinary u rgency LEAD AND PULSE GENERATOR, NEUROSTIMULATOR, SACRAL documented in this encounter Visit Diagnoses Diagnosis Urgency of urination documented in this encounter Administered Medications Inactive Administered Medications - up to 3 most recent administrations Medication Order MAR Action Action Date Dose Rate Site Lidocaine 1% injection 1 mL Given 05/19/2011 9:33 AM CDT 0.5 mLs 1 mL, Other, ONCE PRN, mild pain with VAD insertion or accessing implanted port,, Starting on Wed05/19/11 at 0847, For 1 dose, Do NOT give if patient has a history of allergy to any local anesthetic or any carmita product. MAX dose 1 mL subcutaneous OR intradermal in divided doses., Pre-procedure documented in this encounter Active and Recently Administered Medications Times are shown in CDT. PRN Medication Order 05/17/2011 05/18/2011 05/19/2011 ceFAZolin (ANCEF) 1 g vial to attach to IVPB (CANCELED) 1136 (Given - Provider: Carlota Landeros - Comment: mixed with 1L of water and was used only as irrigation.) Intravenous, for 30 Minutes, PRN, Starting 05/19/11 at 1136, Intra-procedure lidocaine 1 % injection (CANCELED) 1133 (Given - Provider: Carlota Landeros) PRN, Starting e 05/19/11 at 1133, Intra-procedure Lidocaine 1% injection 1 mL (COMPLETED) 0933 (Given - Provider: Mitul Dover) 1 mL, Other, ONCE PRN, mild pain with VA D insertion or accessing implanted port,, Starting 05/19/11 at 0847, For 1 dose, Do NOT give if patient has a history of allergy to any local anesthetic or any carmita product. MAX dose 1 mL subcutan eous OR intradermal in divided doses., Pre-procedure documented in this encounter Care Teams President Practicing Urologist Relationship Specialty Start Date End Date Mehreen Johnston MD PhD PCP - General Family Practice 03/19/11 documented as of this encounter
--- OUTSIDE RECORDS SUMMARY | 2022-07-30 19:33 | XMS_ITS | Encounter Summary ---
:1945 Author Organization [facility] Address [address] [place] [address]. [place] [address] Care Team Providers Name Role Phone Mehreen Johnston MD PhD Primary Care Provider [phone] Encounter Details Date Type Department Care Team Description 04/15/2011 Orders Only UROLOGY CLINIC AND Carlota Landeros Urg ency of urination [facility] [address] [facility] [address]LO[address] [place] [address] [place] [address] Social History Tobacco Use Types [...] Visit Internal Medicine LogMargot sadler MD [address] [address] (Wo rk) Scheduled Orders Name Type Priority Associated Diagnoses Order S chedule Bridget-Operative Worksheet Procedures Routine Urgency of urina tion Ordered: 04/15/2011 (Urology) documented as of this encounter Visit Diagnoses Diagnosis Urgency of urination documented in this encounter Care Teams Change Analyst Relationship Specialty Start Date End Date Mehreen Johnston MD PhD PCP - General Family Practice 03/19/11 documented as of this encounter
--- OUTSIDE RECORDS SUMMARY | 2022-07-30 19:33 | XMS_ITS | Encounter Summary ---
:1945 Author Organization [facility] Address [address] [place] [address]. [place] [address] Care Team Providers Name Role Phone Unavailable Primary Care Provider Unavailable Reason for Visit Reason Onset Date Comments Previsit 02/04/2011 Encounter Details Date Type Department Care Team Description 02/04/2011 Telephone UROLOGY CLINIC AND Francisco Landeros MD Previsit [facility] [address] [place] [address] [facility] [address]TH FLOOR, [address] [facility] [address] [place], [place] [phone] Social History Tobacco Use Types Packs/Day Years Used Date Smoking Tobacco: Never Smokeless Tobacco: Never Alcohol Use Standard Drinks/Week Comments No 0 (1 standard drink = 0.6 oz pure alcoho l) Sex Assigned at Date Recorded Female 12/20/2018 4:10 PM CDT documented as of this encounter Miscellaneous Notes Telephone Encounter - Michelle Montana RN - 02/04/2011 4:01 PM CDT Message left for patient reminding them of upcoming appointment. Patient requested to contact the clinic back to discuss further details of appointment. Instructions which need to be given to patient are as follows: Needs to arrive to clinic appointment with full bladder (if possible) Confirmed with patient Radiology appointment (to include date, time and location): N/A Left message Current outpatient prescriptions: methylphenidate (CONCERTA) 36 MG CR tablet, Take 2 tablets by mouth daily. tamsulosin (FLOMAX) 0.4 MG 24 hr capsule, Take 1 capsule by mouth daily. Acetaminophen (TYLENOL PO), Take 250 mg by mouth 2 times daily. methylphenidate (CONCERTA) 36 MG CR tablet, Take 1 tablet by mouth 2 times daily. Ibuprofen (ADVIL) 200 MG capsule, Take by mouth every 4 hours as needed. acetaminophen (TYLENOL) 325 MG tablet, Take by mouth every 6 hours as needed. Patient verbalizes understanding of all instructions reviewed and questions answered: documented in this encounter Plan of Treatment Upcoming Encounters Date Type Specialty Care Team Description 09/10/2022 Office Visit Internal Medicine LogeaisMargot MD [address] [address] (Wo rk) documented as of this encounter Visit Diagnoses Not on filedocumented in this encounter
--- OUTSIDE RECORDS SUMMARY | 2022-07-30 19:33 | XMS_ITS | Encounter Summary ---
:1945 Author Organization [facility] Address [address] [place] [address]. [place] [address] Care Team Providers Name Role Phone Lisseth Vang MD Primary Care Provider Encounter Details Date Type Department Care Team Description 02/11/2011 Telephone UROLOGY CLINIC AND Francisco Landeros MD [facility] [address] [place] [address] [facility] 4TH FLOOR, [address] 420 [facility], [facility] [address] [phone] Social History Tobacco Use Types Packs/Day Years Used Date Smoking Tobacco: Never Smokeless Tobacco: Never Alcohol Use Standard Drinks/Week Comments No 0 (1 standard drink = 0.6 oz pure alcoho l) Sex Assigned at Date Recorded Female 12/20/2018 4:10 PM CDT documented as of this encounter Miscellaneous Notes Telephone Encounter - Yesica Pritchett RN - 02/11/2011 3:49 PM CDT Message copied by YESICA PRITCHETT on WedFebruary 11, 2011 3:49 PM ------ Message from: PANKAJ BAIN Created: WedFebruary 10, 2011 4:58 PM Pt has been schedule and notified via ----- Message ----- From: Yesica Pritchett RN Sent: 02/05/2011 5:29 PM To: Urology & [facility] Scheduling-[facility] Please call pt to schedule pt in 2 weeks with [place]. 02/19/11 at 1030 am Discuss urodynamics results Stress incontinence Thanks documented in this encounter Plan of Treatment Upcoming Encounters Date Type Specialty Care Team Description 09/10/2022 Office Visit Internal Medicine Margot Branham MD [address] [address] (Wo rk) documented as of this encounter Visit Diagnoses Not on filedocumented in this encounter Care Teams Battalion Chief Relationship Specialty Start Date End Date Lisseth Vang MD PCP - General 02/05/11 03/18/11 [address] [facility] [address] [place], [place] [phone] documented as of this encounter
--- OUTSIDE RECORDS SUMMARY | 2022-07-30 19:33 | XMS_ITS | Encounter Summary ---
:1945 Author Organization [place] Address [address] [place] [address] Care Team Providers Name Role Phone Unavailable Primary Care Provider Unavailable Encounter Details Date Type Department Care Team Description 12/02/[address] [facility] Anh Costa APRN [facility] PAUL Mota [facility] 4th Floor, Clinic [address] [phone] Social History Tobacco Use Types Packs/Day Years Used Date Smoking Tobacco: Never Alcohol Use Standard Drinks/Week Comments Not Asked 0 (1 standard drink = 0.6 oz pure alcoho l) Sex Assigned at Date Recorded Female 12/20/2018 4:10 PM CDT documented as of this encounter Plan of Treatment Upcoming Encounters Date Type Specialty Care Team Description 09/10/2022 Office Visit Internal Medicine LogeaisMargot MD [address] [phone] (Wo rk) documented as of this encounter Procedures Procedure Name Priority Date/Time Associated Diagnosis Comme nts SEND OUTS MISC TEST Routine 12/02/2010 7:47 AM Re sults for this ROOFER GYPSUM procedure are i n the results section. documented in this encounter Results Send outs misc test (12/02/2010 7:47 AM ROOFER GYPSUM) Analysis Performed At [facility] logist Time Signature Lab Scanned SEND OUTS MISYS Result MISC TEST-Scann ed Specimen (Source) Anatomical Collection Method Collection Time Re ceived Time Location / / Volume Laterality 12/02/2010 7:47 AM [facility]OO[facility]YPS[facility] Anh Costa APRN CHIEF II DISPATCHER LAB - BLOOD ORDERABLES Performing Organization Address City/State/ZIP Code Phon e Number MISYS documented in this encounter Visit Diagnoses Not on filedocumented in this encounter
--- OUTSIDE RECORDS SUMMARY | 2022-07-30 19:33 | XMS_ITS | Encounter Summary ---
:1945 Author Organization [facility] Address [address] [place] [address]. [place] [address] Care Team Providers Name Role Phone Unavailable Primary Care Provider Unavailable Encounter Details Date Type Department Care Team Description 11/19/2010 Office Visit-[facility] INTERFACE [facility] DEPT Provider, [facility] Nurs e Social History Tobacco Use Types Packs/Day Years Used Date Smoking Tobacco: Never Alcohol Use Standard Drinks/Week Comments Not Asked 0 (1 standard drink = 0.6 oz pure alcoho l) Sex Assigned at Date Recorded Female 12/20/2018 4:10 PM CDT documented as of this encounter Progress Notes Provider, [facility] Nurse - 11/19/2010 3:40 PM CST [employer]: Wagner Joiner Status: Unsigned Encounter: 19 Nov 2010 Type: Chart Note Date: 19 Nov 2010 3:39 PM CHIEF OPHTHALMIC TECHNICIAN, Recorded By: Wagner Joiner Calling For: Urology Clinic Schedule Caller: RADHAYIMI, Self (Home) Reason: Scheduling Issue patient wanted to schedule video urodynamics for dr aguilar on march 19 at 12:30pm please put this in the system -- patient has been notified. wagner documented in this encounter Plan of Treatment Upcoming Encounters Date Type Specialty Care Team Description 09/10/2022 Office Visit Internal Medicine Margot Branham MD [address] [phone] (Wo rk) documented as of this encounter Visit Diagnoses Not on filedocumented in this encounter
--- OUTSIDE RECORDS SUMMARY | 2022-07-30 19:33 | XMS_ITS | Encounter Summary ---
:1945 Author Organization [place] Address [address] [place] [address]. [place] [address] Care Team Providers Name Role Phone Mehreen Johnston MD PhD Primary Care Provider [phone] Encounter Details Date Type Department Care Team Description 05/18/2011 Office Visit [facility] DoctorJohanny MD [facility] PAC [address] [place] [phone] [phone] Anesthesia Record Procedure Summary Procedure Name Responsible Anesthesia Start Anesthesia Stop Time Anesthesiologist Time INSERTION, 05/19/11 1055 05/19/11 1154 ELECTRODE LEAD AND PULSE GENERATOR, NEUROSTIMULATOR, SACRAL (Right: Sacrum) Events Date Time Event Comment 05/19/2011 1017 1055 An Start 1154 An Stop No medications on file. Agents No agents on file. Blood No blood administrations on file. Lines, Drains, and Airways Type Details Placement Removal Incision/Surgical Site 05/19/11; Lower; Back; 05/19/11 0000 by 0 05/19/11 1344 by 05/19/11; 1344 Nikkie Garcia Schwendeman, Connie RN L, RN Peripheral IV 05/19/11; 0934; 20 G; 05/19/11 0934 by 05/19/11 1344 by Left; Hand; Mitul Dover RN Schwendema n, Connie Chlorhexidine; Brii, RN Injectable; Tolerated well documented in this encounter Social [...] Sign Reading Time Taken Comments Blood Pressure 140/83 05/18/2011 8:04 AM CDT Pulse 58 05/18/2011 8:04 AM CDT Temperature 36.7 ??C (98.1 ??F) 05/18/2011 8:04 AM CDT Respiratory Rate 12 05/18/2011 8:04 AM CDT Oxygen Saturation 97% 05/18/2011 8:04 AM CDT Inhaled Oxygen Concentration - - Weight 85.3 kg (188 lb) 05/18/2011 8:04 AM CDT Height 167.6 cm (5' 6) 05/18/2011 8:04 AM CDT Body Mass Index 30.34 05/18/2011 8:04 AM CDT documented in this encounter Progress Notes Quita Salguero, FRANCIS - 05/18/2011 12:00 AM CDT Anesthesia Evaluation history and physical reviewed - Dr. Vang. Pt has had prior anesthetic. Type: General and MAC Hx of anesthetic complications PONV and Other (severe vertigo for 1 day after surgery) ROS/MED HX Pulmonary: (-) tobacco use, sleep apnea and CHELSEA Risk Factors Neurologic: - neg neurologic ROS Cardiovascular: (+) hypertension range: 130s/80s, . . Previous cardiac testing - ECG reviewed indication: pre-op date: 05/12/11 (-) ACUÑA and orthopnea/PND METS/Exercise Tolerance: Comment: Walks 3 miles daily. 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 (+) arthritis, GI/Hepatic: - neg GI/hepatic ROS Renal: - neg renal ROS (-) renal disease Endo: - neg endo ROS Psychiatric: Infectious Disease: - neg infectious disease ROS Other: - neg other ROS Physical Exam Normal systems: cardiovascular, pulmonary and dental Airway Mallampati: II TM distance: <3 FB Neck ROM: full Dental (+) caps [...] early admission to pre-op area: Other: PAC Resident/SUPERVISOR INTELLIGENCE ANALYST Anesthesia Assessment: 65 y/o referred to discuss [...] to face, assessing, examining, and coordinating care. Signed: ..Quita Salguero 05/18/11, 0859 documented in this encounter Plan of Treatment Upcoming Encounters Date Type Specialty Care Team Description 09/10/2022 Office Visit Internal Medicine Margot Branham MD [address] [place] [address] (Wo rk) documented as of this encounter Procedures Procedure Name Priority Date/Time Associated Diagnosis Comme nts BASIC METABOLIC Routine 05/18/2011 8:33 AM Hypertension Result s for this PANEL CDT procedure are i n the results section. CBC WITH PLATELETS Routine 05/18/2011 8:33 AM Hypertension Res ults for this CDT procedure are i n the results section. documented in this encounter Results CBC with platelets (05/18/2011 8:33 AM CDT) P athologist Signature WBC 5.0 4.0 - 11.0 [facility] 10e9/L [facility] RBC Count 4.81 3.8 - 5.2 [facility] 10e12/L [facility] Hemoglobin 14.5 11.7 - [facility] 15.7 g/dL [facility] Hematocrit 42.8 35.0 - [facility] 47.0 % [facility] MCV 89 78 - 100 [facility] MCH 30.1 26.5 - [facility] 33.0 pg CAMPUS LABS MCHC 33.9 31.5 - [facility] 36.5 g/dL CAMPUS LABS RDW 13.3 10.0 - [facility] 15.0 % [facility] Platelet Count 155 150 - 450 [facility] 10e9/L [facility] Specimen Anatomical Collection Method Collection Time Receive d Time (Source) Location / / Volume Laterality Blood specimen 05/18/2011 8:33 AM 011 8:38 (specimen) CDT AM CDT Quita Salguero NP LAB - BLOOD ORDERABLES Performing Organization Address City/[facility]/ZIP Code Phon e Number [facility] [address] LABS Basic metabolic panel (05/18/2011 8:33 AM CDT) P athologist Signature Sodium 140 133 - 144 [facility] mmol/L [facility] Potassium 4.4 3.4 - 5.3 [facility] mmol/L [facility] Chloride 107 94 - 109 [facility] mmol/L [facility] Carbon Dioxide 27 20 - 32 [facility] mmol/L [facility] Anion Gap 6 6 - 17 [facility] mmol/L [facility] Glucose 98 60 - 99 [facility] mg/dL [facility] Urea Nitrogen 17 7 - 30 [facility] mg/dL CAMPUS [facility]S Creatinine 0.85 0.52 - [facility] 1.04 mg/dL CAMPUS [facility] GFR Estimate 67 >60 [facility] mL/min/1.7 [facility]AMP[facility] m2 GFR Estimate If 81 >60 [facility] mL/min/1.7 [facility] m2 Calcium 9.3 8.5 - 10.4 [facility] mg/dL [facility] Specimen Anatomical Collection Method Collection Time Receive d Time (Source) Location / / Volume Laterality Blood specimen 05/18/2011 8:33 AM 011 8:38 (specimen) CDT AM CDT Quita Salguero NP LAB - BLOOD ORDERABLES Performing Organization Address City/[facility]/ZIP Code Phon e Number [facility] [address] [place], [place] [phone] [place] [address] LABS documented in this encounter Visit Diagnoses Diagnosis Hypertension Unspecified essential hypertension documented in this encounter Care Teams Sample Shoe Inspector And Reworker Relationship Specialty Start Date End Date Mehreen Johnston MD PhD PCP - General Family Practice 6/16/11 2/12/12 documented as of this encounter
--- OUTSIDE RECORDS SUMMARY | 2022-07-30 19:33 | XMS_ITS | Encounter Summary ---
:1945 Author Organization [facility] Address [address] [place] [address]. [place] [address] Care Team Providers Name Role Phone Mehreen Johnston MD PhD Primary Care Provider Reason for Visit Reason Onset Date Comments Other 04/09/2011 Encounter Details Date Type Department Care Team Description 04/09/2011 Telephone Adult Call Center Unknown, Provider Other [address] [place], [place] [phone] Social History Tobacco Use Types Packs/Day Years Used Date Smoking Tobacco: Never Smokeless Tobacco: Never Alcohol Use Standard Drinks/Week Comments No 0 (1 standard drink = 0.6 oz pure alcoho l) Sex Assigned at Date Recorded Female 12/20/2018 4:10 PM CDT documented as of this encounter Miscellaneous Notes Telephone Encounter - Magdalena Galicia - 04/09/2011 10:49 AM CDT Left messge for pt. Dr Landeros no longer in [facility] . Gave pt Dr Landeros clinic number Telephone Encounter - Bibi Bernal - 04/09/2011 10:37 AM CDT Pt. Is wearing a stimulator because of urinary incontinence. It was placed by Dr. Landeros on 04/02/11. She was told to have an xray done before removal of the device on 04/10/11. She has been trying to reach someone in [facility] to find out where the xray is to be done and where the removal of the device is to be done. This note routed to [facility] [place]. documented in this encounter Plan of Treatment Upcoming Encounters Date Type Specialty Care Team Description 09/10/2022 Office Visit Internal Medicine Margot Branham MD [address] [place] [phone] (Wo rk) documented as of this encounter Visit Diagnoses Not on filedocumented in this encounter Care Teams Patient Financial Services Manager Relationship Specialty Start Date End Date Mehreen Johnston MD PhD PCP - General Family Practice 03/19/11 documented as of this encounter
--- OUTSIDE RECORDS SUMMARY | 2022-07-30 19:33 | XMS_ITS | Encounter Summary ---
:1945 Author Organization [place] Address [address] [place] [address]. [place] [address] Care Team Providers Name Role Phone Mehreen Johnston MD PhD Primary Care Provider [phone] Reason for Visit Reason Comments RECHECK interstim removal Encounter Details Date Type Department Care Team Description 04/10/2011 Office Visit UROLOGY CLINIC AND [facility] PA-C urge and stress [facility] AND UROLOGIC [address] (male)(female) [address] (Primary Dx) [place], [place] [facility] [address] 4TH FLOOR, [address] [place] [address] (Work) [address] [address] [place] [address] Social History Tobacco Use Types Packs/Day Years Used Date Smoking Tobacco: Never Smokeless Tobacco: Never Alcohol Use Standard Drinks/Week Comments No 0 (1 standard drink = 0.6 oz pure alcoho l) Sex Assigned at Date Recorded Female 12/20/2018 4:10 PM CDT documented as of this encounter Last Filed Vital Signs Vital Sign Reading Time Taken Comments Blood Pressure 122/65 04/10/2011 2:12 PM CDT Pulse 59 04/10/2011 2:12 PM CDT Temperature - - Respiratory Rate - - Oxygen Saturation - - Inhaled Oxygen Concentration - - Weight 85.3 kg (188 lb 1.6 oz) 04/10/2011 2:12 PM CDT Height - - Body Mass Index 30.36 03/19/2011 8:20 AM CDT documented in this encounter Progress Notes Lo Burrell - 04/14/2011 8:08 AM CDT Right PNE lead yielded best urologic symptomatic relief. Thanks, Uma Burrell PA-C Department of Urologic Surgery [facility] - 04/10/2011 2:42 PM CDT Reason for visit: Removal of Interstim leads, recheck PVR. Clinical Data: Ms. Ramona Sheikh is a very pleasant 65 year old female who demonstrated good bladder compliance and normal bladder capacity on urodynamic evaluation, however no detrusor contraction. She c/o urgency and mixed incontinence and her residual urines were elevated. I am uncertain as to actual PVRs. She underwent PNE on 04/02/[address] Landeros without incident. Since lead placement, thepatient states that her symptoms have been improved. She has only had 1 incontinent episode since placement of the leads (previously every other day or so) and nocturia x 0-1. Urgency is improved. Ms. Sheikh still reports some urgency to void, but is usually able to make it to the restroom in time. She is not wearing any pads. The patient has had the lead voltage near 5-6 for best results. PVR: 0 cc today. Exam: Vitals: BP 122/65 Pulse 59 Wt 85.322 kg (188 lb 1.6 oz) General: WDWN female in NAD. Lungs: No evidence of respiratory distress. Abd: Soft, NT, ND, + BS. Back: PNE leads secured with tape to lower back, moderate dried blood visible on tape. : Moderate stress incontinence demonstrated with cough, moderate urethral hypermobility. Psych: Pleasant and agreeable during interview and exam today. A/P:65 y/o female with mixed incontinence and idiopathic urinary retention, s/p PNE who presents to clinic today for removal of leads. 1. PNE leads removed today without incident. 2. Schedule phase II Interstim, will task Dr. Landeros to input surgical orders and scheduling to help coordinate. 3. Consider periurethral bulking in the future for the stress incontinence. I have enjoyed participating in the medical care of this pleasant patient and will continue to keep you updated on her care. documented in this encounter Plan of Treatment Upcoming Encounters Date Type Specialty Care Team Description 09/10/2022 Office Visit Internal Medicine LogeaMargot man MD [address] [address] (Wo rk) documented as of this encounter Visit Diagnoses Diagnosis Mixed incontinence urge and stress (male )(female) - Primary documented in this encounter Care Teams Water Jet Operator Relationship Specialty Start Date End Date Mehreen Johnston MD PhD PCP - General Family Practice 03/19/11 documented as of this encounter
--- OUTSIDE RECORDS SUMMARY | 2022-07-30 19:33 | XMS_ITS | Encounter Summary ---
:1945 Author Organization [facility] Address [address] [place] [address]. [place] [address] Care Team Providers Name Role Phone Unavailable Primary Care Provider Unavailable Reason for Visit Reason Comments Physical annual exam Encounter Details Date Type Department Care Team Description 12/29/2010 Office Visit [facility] Mehreen Green Elevated blood pressure read ing without diagnosis of hypertension; Mason Butler MD P hD Disorder of bone and cartilage, unspecif ied; Building [address] [place] [address] Thyroid disorder screening; 1st Floor, Clinic [address] [place], [place] Delinquent immunization stat us; [address] [place] [address] SE [phone] [place], [place] (Work) [phone] Social History Tobacco Use Types Packs/Day Years Used Date Smoking Tobacco: Never Smokeless Tobacco: Never Alcohol Use Standard Drinks/Week Comments No 0 (1 standard drink = 0.6 oz pure alcoho l) Sex Assigned at Date Recorded Female 12/20/2018 4:10 PM CDT documented as of this encounter Last Filed Vital Signs Vital Sign Reading Time Taken Comments Blood Pressure 115/70 12/29/2010 4:01 PM CDT Pulse 58 12/29/2010 4:01 PM CDT Temperature 36.8 ??C (98.2 ??F) 12/29/2010 4:01 PM CDT Respiratory Rate 16 12/29/2010 4:01 PM CDT Oxygen Saturation - - Inhaled Oxygen Concentration - - Weight 83.9 kg (185 lb) 12/29/2010 4:01 PM CDT Height - - Body Mass Index - - documented in this encounter Progress Notes Mehreen Johnston - 12/29/2010 4:12 PM CDT I saw the patient with the fellow. I agree with the fellow note and plan of care. .[facility] CURRENT MEDICATIONS: Current outpatient prescriptions Medication Sig ??? psyllium 0.52 GM capsule Take 1 capsule by mouth daily. Take 2 caps daily ??? GUAIFENESIN-POT GUAIACOL-DM OR Take 100 mg by mouth. Take one tablet twice daily ??? estradiol (ESTRACE) 0.1 MG/GM vaginal cream Place 2 g vaginally twice a week. Use 1/2 applicatortwice weekly ??? Multiple Vitamin (MULTIVITAMINS PO) Take by [...] Has been taking 2 at night lately. PAST SURGICAL HISTORY: Past Surgical History Procedure Date ??? C/section, classical 1978 , Classical ??? Cl quest surgical pathology 1989 Breast Reduction ??? Breast biopsy, rt/lt Breat Biopsy RT/LT ??? Hc colonoscopy thru stoma, diagnostic NL ??? Surgical history of - ? Nasal passages microwaved. Dr Baer ENT ALLERGIES Morphine, Codeine, Nickel, Latex and Tape FAMILY HX: Family History Problem Relation Age of Onset ??? Colon CA Mother ??? Cardiovascular Father SOCIAL HX: History Social History ??? Marital Status: Single Spouse Name: N/A Number of Children: N/A ??? Years of Education: N/A ROS: Constitutional: No fever, chills, or sweats. No weight gain/loss. Hot flashes night sweats ENT: No visual disturbance, ear ache, epistaxis, sore throat. Ringing in the ears, nasal congestion and stuffiness, hearing loss lower tones Allergies/Immunologic: Negative. Respiratory: No cough, hemoptysis. Cardiovascular:HTN on meds, had recent cholesterol, GI: No nausea, vomiting, hematemesis, melena, or hematochezia. Colonoscopy 2009 (repeat in 5 years),occasional indigestion : No urinary frequency, dysuria, or hematuria. Has microhematuria and seeing Dr Landeros Integument: Negative. Has seborrheic lesions, no skin cancer, sees derm 1 time/year. Wears sun screen Psychiatric: Negative. Neuro: Negative. Has benign head tremor Endocrinology: Negative. Musculoskeletal: No myalgia. VITAL SIGNS: BP 115/70 Pulse 58 Temp(Src) 98.2 ??F (36.8 ??C) (Oral) Resp 16 Wt 83.915 kg (185 lb) There is no height on file to calculate BMI. Wt Readings from Last 2 Encounters: 12/29/10 83.915 kg (185 lb) 09/23/09 78.019 kg (172 lb) Constitutional: Well appearing woman in no acute [...] No nipple inversion, nobreast dimpling or puckering. Scars from breast surgery. Axillary area without masses or lympadenapathy. Gastrointestinal: positive bowel sounds, nontender, no hepatosplenomegaly, no masses. No guarding orrebound. Midline scar. Genitourinary: External genitalia atrophic. Normal hair distrution. No enlargement of the Bartholin or Susan Moore glands. Urethra and bladder are non- tender. Vagina is without lesions or discharge and thinned pale and no rugae. no anterior or posterior wall defects. Cervix is nulliparous and atrophic without lesions, no cervical motion tenderness. Pap was done in sep 2010. Uterus is enlarged about 6 week size, mobile nontender. Adnexa without tenderness or enlarged. Rectal exam positive hemorrhoids with normal sphincter tone, no masses. Perineum without lesions. Lymphatic: no lymphadenopathy. Musculoskeletal: full range of motion, no edema and motor strength is equal in the upper and lower extremities Skin: no concerning lesions, no jaundice. Neurological: cranial nerves intact, normal strength and sensation, reflexes at patella and biceps normal, normal gait, no tremor. Monofilament Foot Exam: n/a ASSESSMENT AND PLAN: 65 year postmenopausal woman in for annual exam. Pap was done in Sep 2010. Mammogram was done at outside clinic. Will screen for hgb, TSH Has following problems 1. HTN controlled on meds 2. Osteopenia - on calcium and vitamin D encourage exercise and will get DXA next year Nov 2011 and reeval - recheck vit D level 3.Strong FHX of colon cancer - in screening program - had colonoscopy April 2010 repeat in 5 years 4. 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 Atrophic vaginitis - using estrace cream 2 times/week and helping - no vaginal bleeding continue 6. Hematuria - followed by Dr Landeros - will check urine 7. Has fibroids - follow clinically by me 8. Cardiac risk - followed by Dr Costa - will get repeat CRP cardiac FOLLOW UP: Will see in summer for osteopenia f/u and will get PPD at that time. documented in this encounter Plan of Treatment Upcoming Encounters Date Type Specialty Care Team Description 09/10/2022 Office Visit Internal Medicine LogeaisMargot MD [address] [place] [id number] (Wo rk) documented as of this encounter Procedures Procedure Name Priority Date/Time Associated Diagnosis Comme nts ROUTINE UA WITH Routine 12/29/2010 8:19 PM Elevated blood Resu lts for this MICROSCOPIC CDT pressure reading procedure a re in without diagnosis of the res ults hypertension section. documented in this encounter Results URINALYSIS (12/29/2010 8:19 PM CDT) Component Value Ref Test Analysis Performed At [facility] gist Range Method Time Signature Color Urine Light Yellow [facility] Appearance Urine Clear [facility] Glucose Urine Negative NEG [facility] mg/dL [facility] Bilirubin Urine Negative NEG [facility] Ketones Urine Negative NEG [facility] mg/dL [facility] Specific Vidor 1.005 1.003 - [facility] Urine 1.035 [facility] Blood Urine Negative NEG [facility] pH Urine 7.0 5.0 - [facility] 7.0 pH [facility] Protein Albumin Negative NEG [facility] Urine mg/dL [facility] Urobilinogen Normal 0.0 - [facility] mg/dL 2.0 [facility] mg/dL [facility] Nitrite Urine Negative NEG [facility] Leukocyte Negative NEG [facility] Esterase Urine [facility] Source Unspecified [facility] Urine [facility] WBC Urine 0 0 - 2 [facility] /HPF [facility] RBC Urine 0 0 - 2 [facility] /HPF [facility] Squamous <1 0 - 1 [facility] Epithelial /HPF /HPF [facility] U[facility] Specimen Anatomical Collection Method Collection Time Receive d Time (Source) Location / / Volume Laterality Urine specimen 12/29/2010 8:19 PM 011 8:24 (specimen) CDT PM CDT Mehreen Johnston MD PhD LAB - URINE ORDERABLES Performing Organization Address City/State/ZIP Code Phon e Number [facility] [address] [place], [place] [id number] [place] [address] [facility] documented in this encounter Visit Diagnoses Diagnosis Elevated blood pressure reading without diagnosis of hypertension Disorder of bone and cartilage, unspecif ied Thyroid disorder screening Screening for thyroid disorder Delinquent immunization status Personal history of underimmunization st atus Anemia Anemia, unspecified documented in this encounter
--- OUTSIDE RECORDS SUMMARY | 2022-07-30 19:33 | XMS_ITS | Encounter Summary ---
:1945 Author Organization [facility] Address [address] [place] [address]. [place] [address] Care Team Providers Name Role Phone Unavailable Primary Care Provider Unavailable Encounter Details Date Type Department Care Team Description 12/05/2010 Abstract M [facility] Info Mgmt Ab[address] ct, Provider Srvcs [address] [place] [address] Social History Tobacco Use Types Packs/Day Years Used Date Smoking Tobacco: Never Alcohol Use Standard Drinks/Week Comments Not Asked 0 (1 standard drink = 0.6 oz pure alcoho l) Sex Assigned at Date Recorded Female 12/20/2018 4:10 PM CDT documented as of this encounter Plan of Treatment Upcoming Encounters Date Type Specialty Care Team Description 09/10/2022 Office Visit Internal Medicine LogeaisMargot MD [address] [phone] (Wo rk) documented as of this encounter Visit Diagnoses Not on filedocumented in this encounter
--- OUTSIDE RECORDS SUMMARY | 2022-07-30 19:33 | XMS_ITS | Encounter Summary ---
:1945 Author Organization [facility] Address [address] [place] [address]. [place] [address] Care Team Providers Name Role Phone Mehreen Johnston MD PhD Primary Care Provider [phone] Reason for Visit Reason Onset Date Comments Pre Visit Planning - Done 08/03/2011 Encounter Details Date Type Department Care Team Description 08/03/2011 Telephone UROLOGY CLINIC AND Carlota Landeros, Pre Visit Planning - [facility] Done AND [facility] [address] [facility] [address], [address] [place] [address] [place] [address] Social History Tobacco Use Types Packs/Day Years Used Date Smoking Tobacco: Never Smokeless Tobacco: Never Alcohol Use Standard Drinks/Week Comments No 0 (1 standard drink = 0.6 oz pure alcoho l) Sex Assigned at Date Recorded Female 12/20/2018 4:10 PM CDT documented as of this encounter Miscellaneous Notes Telephone Encounter - Essence Joiner LPN - 08/03/2011 2:35 PM CDT interstim patient and was to follow up prn. Problems with the device. essence documented in this encounter Plan of Treatment Upcoming Encounters Date Type Specialty Care Team Description 09/10/2022 Office Visit Internal Medicine Logeais, MD Margot [address] [place] [phone] (Wo rk) documented as of this encounter Visit Diagnoses Not on filedocumented in this encounter Care Teams Distribution Field Engineer Relationship Specialty Start Date End Date Mehreen Johnston MD PhD PCP - General Family Practice 03/19/11 documented as of this encounter
--- OUTSIDE RECORDS SUMMARY | 2022-07-30 19:33 | XMS_ITS | Encounter Summary ---
:1945 Author Organization [facility] Address [address] [place] [address]. [place] [address] Care Team Providers Name Role Phone Mehreen Johnston MD PhD Primary Care Provider [phone] Reason for Visit Reason Comments RECHECK adjust the interstim Encounter Details Date Type Department Care Team Description 08/05/2011 Office Visit UROLOGY CLINIC AND Carlota Landeros, Urg ency of urination; [facility] Urinary retention [facility] [address] [facility] [place] [address] [facility] [address] [address], [address] [facility] [address] [place] [address] Social History Tobacco Use Types Packs/Day Years Used Date Smoking Tobacco: Never Smokeless Tobacco: Never Alcohol Use Standard Drinks/Week Comments No 0 (1 standard drink = 0.6 oz pure alcoho l) Sex Assigned at Date Recorded Female 12/20/2018 4:10 PM CDT documented as of this encounter Last Filed Vital Signs Vital Sign Reading Time Taken Comments Blood Pressure 140/83 08/05/2011 3:25 PM CDT Pulse 62 08/05/2011 3:25 PM CDT Temperature - - Respiratory Rate - - Oxygen Saturation - - Inhaled Oxygen Concentration - - Weight 84.5 kg (186 lb 4.8 oz) 08/05/2011 3:25 PM CDT Height - - Body Mass Index 29.62 05/19/2011 9:00 AM CDT documented in this encounter Progress Notes Carlota Landeros - 08/05/2011 3:44 PM CDT Reason for Visit: f/u on [...] the settings so she presents today for help with this. A/P: 65 y/o female with the above -Will assist with setting change -will also ask the rep to send her a new card indicating she has an implant -f/u as needed. Thank you for allowing me to participate in the care of Ms. Ramona Sheikh and I will keep you updated on her progress. Carlota Landeros MD 15 min spent with patient, >50% in discussion. documented in this encounter Nursing Notes 08/05/2011 3:15 PM CDT >> YESICA PRITCHETT RN Wed Aug 05, 2011 6:09 PM Was able to demonstrate proper use of the interstim device. Pt started new program #3 and would liketo return one more time to eval the next program documented in this encounter Plan of Treatment Upcoming Encounters Date Type Specialty Care Team Description 09/10/2022 Office Visit Internal Medicine Margot Branham MD [address] [place] [phone] (Wo rk) documented as of this encounter Visit Diagnoses Diagnosis Urgency of urination Urinary retention Retention of urine, unspecified documented in this encounter Care Teams Community Education Coordinator Relationship Specialty Start Date End Date Mehreen Johnston MD PhD PCP - General Family Practice 03/19/11 11/15/11 documented as of this encounter
--- OUTSIDE RECORDS SUMMARY | 2022-07-30 19:33 | XMS_ITS | Encounter Summary ---
:1945 Author Organization [facility] Address [address] [place] [address]. [place] [address] Care Team Providers Name Role Phone Mehreen Johnston MD PhD Primary Care Provider [phone] Encounter Details Date Type Department Care Team Description 05/28/2011 Telephone UROLOGY CLINIC AND Francisco Landeros MD [facility] AND [address] [place] [address] [place] [address] [facility] 4TH FLOOR, [address] [facility] [address] [place] [phone] Social History Tobacco Use Types Packs/Day Years Used Date Smoking Tobacco: Never Smokeless Tobacco: Never Alcohol Use Standard Drinks/Week Comments No 0 (1 standard drink = 0.6 oz pure alcoho l) Sex Assigned at Date Recorded Female 12/20/2018 4:10 PM CDT documented as of this encounter Miscellaneous Notes Telephone Encounter - Kailee Akhtar - 05/28/2011 8:34 AM CDT Patient is coming in for 2 week post op wound check. documented in this encounter Plan of Treatment Upcoming Encounters Date Type Specialty Care Team Description 09/10/2022 Office Visit Internal Medicine LogMargot sadler MD [address] [facility] [address] [place], [place] [address] (Wo rk) documented as of this encounter Visit Diagnoses Not on filedocumented in this encounter Care Teams Accounting Lecturer Relationship Specialty Start Date End Date Mehreen Johnston MD PhD PCP - General Family Practice 03/19/11 11/15/11 documented as of this encounter
--- OUTSIDE RECORDS SUMMARY | 2022-07-30 19:33 | XMS_ITS | Encounter Summary ---
:1945 Author Organization [facility] Address [address] [place] [address]. [place] [address] Care Team Providers Name Role Phone Unavailable Primary Care Provider Unavailable Encounter Details Date Type Department Care Team Description 01/01/2011 Orders Only [facility] Mehreen Green Elevated blood pressure read ing without diagnosis of hypertension (Primary Dx); Mason Butler MD P hD Thyroid disorder screening; [address] Anemia; 1st Floor, Clinic [address] [place] [address] Delinquent immunization stat [address] [phone] (Work) [phone] Social History Tobacco Use Types Packs/Day Years [...] Visit Internal Medicine Margot Branham MD [address] [place] [address] (Wo rk) documented as of this encounter Procedures Procedure Name Priority Date/Time Associated Diagnosis Comme nts TSH Routine 01/02/2011 7:33 AM Thyroid disorder Resul ts for this CDT screening procedure are i n the results section. RUBELLA ANTIBODY Routine 01/02/2011 7:33 AM Delinquent Resul ts for this IGG CDT immunization status procedur e are in the results section. HEMOGLOBIN Routine 01/02/2011 7:33 AM Anemia Results f or this CDT procedure are i n the results section. CRP CARDIAC RISK Routine 01/02/2011 7:33 AM Elevated blood Res ults for this CDT pressure reading procedure a re in without diagnosis of the res ults hypertension section. BASIC METABOLIC Routine 01/02/2011 7:33 AM Elevated blood Resu lts for this PANEL CDT pressure reading procedure a re in without diagnosis of the res ults hypertension section. documented in this encounter Results Rubella antibody IgG (01/02/2011 7:33 AM CDT) Patholo gist Method Time Signature Rubella POORNIMA >500 IU/mL [facility] IgG Interpretation: ??Positive, Immune [facility] Specimen Anatomical Collection Method Collection Time Receive d Time (Source) Location / / Volume Laterality Blood specimen 01/02/2011 7:33 AM 011 7:35 (specimen) CDT AM CDT Mehreen Johnston MD PhD LAB - BLOOD ORDERABLES Performing Organization Address City/[facility] Code Phon e Number [address] LABS CRP Cardiac Risk (01/02/2011 7:33 AM CDT) P athologist Signature CRP Cardiac 3.3 mg/L [facility] Comment: Reference Values: Low Risk: ? <1.0 mg/L Average Risk: ? 1.0-3.0 mg/L High Risk: ?>3.0 mg/L Acute Inflammation: >8.0 mg/L Specimen Anatomical Collection Method Collection Time Receive d Time (Source) Location / / Volume Laterality Blood specimen 01/02/2011 7:33 AM 011 7:35 (specimen) CDT AM CDT Mehreen Johnston MD PhD LAB - BLOOD ORDERABLES Performing Organization Address City/[facility] Code Phon e Number [address] LABS Basic Metabolic Panel (01/02/2011 7:33 AM CDT) P athologist Signature Sodium 142 133 - 144 [facility] mmol/L CAMPUS LABS Potassium 4.7 3.4 - 5.3 [facility] mmol/L CAMP[facility] LABS Chloride 107 94 - 109 [facility] mmol/L CAMPUS LABS Carbon Dioxide 30 20 - 32 [facility] mmol/L CAMP[facility] LABS Anion Gap 6 6 - 17 [facility] mmol/L CAMP[facility] LABS Glucose 94 60 - 99 [facility] mg/dL CAMPUS LABS Urea Nitrogen 15 7 - 30 [facility] mg/dL CAMPUS LABS Creatinine 0.86 0.52 - [facility] 1.04 mg/dL CAMPUS LABS GFR Estimate 66 >60 [facility] mL/min/1.7 [facility]AMPUS LABS m2 GFR Estimate If 80 >60 [facility] mL/min/1.7 [facility] m2 Calcium 9.3 8.5 - 10.4 [facility] mg/dL CAMPUS LABS Specimen Anatomical Collection Method Collection Time Receive d Time (Source) Location / / Volume Laterality Blood specimen 01/02/2011 7:33 AM 011 7:35 (specimen) CDT AM CDT Mehreen Johnston MD PhD LAB - BLOOD ORDERABLES Performing Organization Address City/[facility]/ZIP Code Phon e Number [facility] [address] LABS Hemoglobin (01/02/2011 7:33 AM CDT) P athologist Signature Hemoglobin 14.6 11.7 - 15.7 [facility] g/dL CAMPUS LABS Specimen Anatomical Collection Method Collection Time Receive d Time (Source) Location / / Volume Laterality Blood specimen 01/02/2011 7:33 AM 011 7:35 (specimen) CDT AM CDT Mehreen Johnston MD PhD LAB - BLOOD ORDERABLES Performing Organization Address City/State/ZIP Code Phon e Number [facility] [address] LABS TSH (01/02/2011 7:33 AM CDT) P athologist Signature TSH 1.30 0.4 - 5.0 [facility] mU/L [place] [facility] Specimen Anatomical Collection Method Collection Time Receive d Time (Source) Location / / Volume Laterality Blood specimen 01/02/2011 7:33 AM 011 7:35 (specimen) CDT AM CDT Mehreen Johnston MD PhD LAB - BLOOD ORDERABLES Performing Organization Address City/State/ZIP Code Phon e Number [facility] [address] [place] [address] [facility] documented in this encounter Visit Diagnoses Diagnosis Elevated blood pressure reading without diagnosis of hypertension - Primary Thyroid disorder screening Screening for thyroid disorder Anemia Anemia, unspecified Delinquent immunization status Personal history of underimmunization st atus documented in this encounter
--- OUTSIDE RECORDS SUMMARY | 2022-07-30 19:33 | XMS_ITS | Encounter Summary ---
:1945 Author Organization [facility] Address [address] [place] [address]. [place] [address] Care Team Providers Name Role Phone Mehreen Johnston MD PhD Primary Care Provider [phone] Encounter Details Date Type Department Care Team Description 05/19/2011 Anesthesia Event M [facility] Merrill Smith PeriOp Services MD [facility] [address] [place] [address] [place], [place] [phone] (Wo rk) Anesthesia Record Procedure Summary Procedure Name Responsible Anesthesia Start Anesthesia Stop Time Anesthesiologist Time INSERTION, 05/19/11 1055 05/19/11 1154 ELECTRODE LEAD AND PULSE GENERATOR, NEUROSTIMULATOR, SACRAL (Right: Sacrum) Events Date Time Event Comment 05/19/2011 1017 1055 An Start 1154 An Stop Name Total ceFAZolin vial 1 gm 1 g Agents No agents on file. Blood No [...] encounter OR Notes Anesthesia Postprocedure Evaluation - Gerardo Dueñas MD - 02/19/2012 5:01 PM CDT Anesthesia Post-Evaluation Note Patient: Ramona Sheikh Patient location: PACU Procedure(s) Performed: IMPLANT STIMULATOR AND LEADS SACRAL NERVE (STAGE ONE AND TWO) Anesthesia type: MAC Patient Condition Respiratory Function (RR / SpO2 / Airway Patency): Satisfactory Cardiac Function (HR / Rhythm / BP): Satisfactory Mental Status: Satisfactory Temperature: Satisfactory Pain Control: Satisfactory PONV: None Beta-Dano Therapy: None indicated Hydration Status: Satisfactory Last Vitals: Filed Vitals: 05/19/11 1230 05/19/11 1300 05/19/11 1335 BP: 133/77 121/99 144/75 Temp: 97.2 ??F (36.2 ??C) Resp: 14 16 15 SpO2: 97% 98% 99% Additional Comments: This is a delayed entry Anesthesia Preprocedure Evaluation - Merrill Smith - 05/18/2011 8:16 AM CDT Anesthesia Evaluation history and physical [...] early admission to pre-op area: Other: PAC Resident/NATURAL RESOURCE MANAGER Anesthesia Assessment: 65 y/o referred to discuss [...] to face, assessing, examining, and coordinating care. PAC Attending Anesthesiologist Anesthesia Assessment: Anesthesiologist: Date: Time: Pass/Fail: Disposition: Anesthesia Plan ASA Score 2 . Plan for MAC Maintenance will be Other. No Propofol Fentanyl/Versed Only Decadron/Zofran . documented in this encounter Miscellaneous Notes Anesthesia Care Transfer Note - Екатерина Kam - 05/19/2011 11:54 AM CDT Anesthesia Care Transfer Note Patient: Ramona Sheikh Transferred to: PACU Patient vital signs: stable Airway: none documented in this encounter Plan of Treatment Upcoming Encounters Date Type Specialty Care Team Description 09/10/2022 Office Visit Internal Medicine Logeais, MD Margot [address] [address] (Wo rk) documented as of this encounter Visit Diagnoses Not on filedocumented in this encounter Administered Medications Inactive Administered Medications - up to 3 most recent administrations Medication Order MAR Action Action Date Dose Rate Site ceFAZolin (ANCEF) 1 g vial to Given 05/19/2011 10:35 AM CDT 1 g attach to IVPB Routine, PRN, Starting on Wed05/19/11 at 1035, Anesthesia Intra-op documented in this encounter Care Teams Line Repairer Tower Relationship Specialty Start Date End Date Mehreen Johnston MD PhD PCP - General Family Practice 03/19/11 11/15/11 documented as of this encounter
--- OUTSIDE RECORDS SUMMARY | 2022-07-30 19:33 | XMS_ITS | Encounter Summary ---
:1945 Author Organization [facility] Address [address] [place] [address]. [place] [address] Care Team Providers Name Role Phone Mehreen Johnston MD PhD Primary Care Provider [phone] Reason for Visit Reason Comments Recheck Medication urodynamics follow up Encounter Details Date Type Department Care Team Description 03/19/2011 Office Visit [facility] AND Carlota Landeros Mix ed incontinence urge and stress (male)(female); [facility] Incomplete bladder emptying [facility] [id number] [facility] [place] [address] [facility] [address] 4TH FLOOR, [address] [place] [address] (Work) [place] [address] [place] [address] Social History Tobacco Use Types Packs/Day Years Used Date Smoking Tobacco: Never Smokeless Tobacco: Never Alcohol Use Standard Drinks/Week Comments No 0 (1 standard drink = 0.6 oz pure alcoho l) Sex Assigned at Date Recorded Female 12/20/2018 4:10 PM CDT documented as of this encounter Last Filed Vital Signs Vital Sign Reading Time Taken Comments Blood Pressure 129/68 03/19/2011 10:07 AM CDT Pulse 55 03/19/2011 10:07 AM CDT Temperature - - Respiratory Rate - - Oxygen Saturation - - Inhaled Oxygen Concentration - - Weight 85 kg (187 lb 4.8 oz) 03/19/2011 10:07 AM CDT Height - - Body Mass Index 30.23 03/19/2011 8:20 AM CDT documented in this encounter Progress Notes Carlota Landeros - 03/19/2011 10:36 AM CDT Reason for visit: Discuss interstim Clinical Data: Ms. Ramona Sheikh is a very pleasant 65 year old female who demonstrated good bladder compliance and normal bladder capacity on urodynamic evaluation, however no detrusor contraction. She c/o urgency and mixed incontinence and her residual urines are elevated. We had discussed performing sic vs. interstim and she would like to proceed with the latter. A/P:65 y/o female with mixed incontinence and idiopathic urinary retention -Schedule PNE -could also consider periurethral bulking in the future for the stress incontinence. Thank you for allowing me to participate in the care of Ms. Ramona Sheikh and I will keep you updated on her progress. Carlota Landeros MD 15 min spent with patient, >50% in discussion. documented in this encounter Plan of Treatment Upcoming Encounters Date Type Specialty Care Team Description 09/10/2022 Office Visit Internal Medicine DianaeaMargot man MD [address] [place] [phone] (Wo rk) documented as of this encounter Visit Diagnoses Diagnosis Mixed incontinence urge and stress (male )(female) Incomplete bladder emptying documented in this encounter Care Teams Porcelain Enamel Installer Relationship Specialty Start Date End Date Mehreen Johnston MD PhD PCP - General Family Practice 03/19/11 11/15/11 documented as of this encounter
--- OUTSIDE RECORDS SUMMARY | 2022-07-30 19:33 | XMS_ITS | Encounter Summary ---
:1945 Author Organization [facility] Address [address] [place] [address]. [place] [address] Care Team Providers Name Role Phone Mehreen Johnston MD PhD Primary Care Provider Reason for Visit Reason Comments Physical Encounter Details Date Type Department Care Team Description 03/19/2011 Office Visit Women's Health Mehreen Green [facility] (Pr imary Dx); Mason Butler MD P hD Osteopenia Building [address] [place] [address] 1st Floor, Clinic [address] [place] [address] [place], [place] (Work) [phone] Social History Tobacco Use Types Packs/Day Years Used Date Smoking Tobacco: Never Smokeless Tobacco: Never Alcohol Use Standard Drinks/Week Comments No 0 (1 standard drink = 0.6 oz pure alcoho l) Sex Assigned at Date Recorded Female 12/20/2018 4:10 PM CDT documented as of this encounter Last Filed Vital Signs Vital Sign Reading Time Taken Comments Blood Pressure 139/73 03/19/2011 8:20 AM CDT Pulse 63 03/19/2011 8:20 AM CDT Temperature - - Respiratory Rate - - Oxygen Saturation - - Inhaled Oxygen Concentration - - Weight 85.3 kg (188 lb) 03/19/2011 8:20 AM CDT Height 167.6 cm (5' 6) 03/19/2011 8:20 AM CDT Body Mass Index 30.34 03/19/2011 8:20 AM CDT documented in this encounter Progress Notes Mehreen Johnston - 03/19/2011 8:50 AM CDT HPI: This is a 65-year-old 1 para 1001 female. She recently had a Pap/pelvic September 2010; her Pap smear was normal. She had been on hormones from her mid-50s until 2002. She became postmenopausal around the mid-50s, was put on hormone patches and then stopped them from 2002 to 2005. Then in 2005 she restarted this. She was on a very low dose, 0.025 mg. She was not getting any bleeding but in July 2009 she had five days of bleeding and then some spotting. She came in for an evaluation and a transvaginal ultrasound was done, as well as an endometrial biopsy. The endometrial biopsy showedinactive endometrial fragments, no evidence of malignancy. The transvaginal ultrasound showed myomas, one which was new. No vaginal bleeding. Is using estrace cream 2 times/wk 1/2 applicator for vaginal atrophy - helping - no itching and burning. She currently is not sexually active. She still has hotflashes (5/7 nights). Getting somewhat better. Using fish oil for this. Can sleep - doesn't want oral estrogen. She had a mammogram Aug-Nov at [facility]. She has had a previous breast reduction. There is no family history of breast cancer.It was normal. She had a DEXA scan 11/13 and T score of spine was -1.4 and L neck -1.1 and total left hip -1.7. She does take calcium citrate 2 tabs twice/day and milk daily. She takes vitamin D3 1000 international units a day. She has been exercising, walking, 1 mile/day.Vitamin D level was 45 in 02/10. She recently was evaluated at the [facility] for cardiac risk 12/2010. She had a lipid panel which showed an LDL of 127, HDL 73. She does not have a significant history of cardiac disease in the family, according to her. She is a nonsmoker. ACTIVE MEDICAL PROBLEMS 1. Osteopenia 2. HTN 3. Vaginal atrophy 4. Urinary incontinence-- seeing Dr Landeros PAST SURGICAL HISTORY: 1. 1978. 2. 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 Breast reduction, 1996. 4. Laparoscopic Matias procedure, 1989. 5. Left vein stripping, left leg. HABITS: Occasional wine, changing to 1 glass/day Nonsmoker. Wears seatbelts. Feels safe in her environment. Exercise is walking a mile/day. Caeffiene - 1 c /day. IMMUNIZATIONS: Her tetanus shot was in 2005. Boostrix 2009. She has had a flu shot. She wants the H1N1. She had the shingles shot at [facility] September 23, 2009. MEDICATIONS: She is on psyllium 1-2 tbs/day.., multivitamin 1 daily, omega-3 daily, glucosamine 1 capsule b.i.d., calcium citrate 250 mg 2 twice/day in divided doses daily, vitamin D3 1000 international units a day, B complex and astragalus capsules 1 day .Mag 800mg/day ALLERGIES: Codeine and morphine (sick to stomach). FAMILY HISTORY: Mother at 93, had osteoporosis and colon cancer. Father at 79, had congestive failure. She has four sisters, two have osteoporosis. One brother at 55 in a car accident. There is colon cancer in a paternal aunt and paternal uncle. SOCIAL HISTORY: She is . She has one son. 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 REVIEW OF SYSTEMS: She has night sweats and hot flashes. No visual problems, no double vision. No Glaucoma No hair loss. Does have ringing in her ears. Nasal congestion and stuffiness. Saw Dr Brewer andnasal treatment for sinus and helped. Does have high blood pressure. Gets occasional palpitations atnight. Has recently been evaluated at the [facility] for cardiac risk. Had a recent cholesterol done. No cough, wheezing or shortness of breath. No history of asthma. No nausea, vomiting or heartburn. Has some incontinence. Has had an urinary infection fall 2008. No history of kidney stones. Currently no dysuria, hematuria or frequency. Is seeing Dr Landeros today. Is not sexually active as mentioned. Does have muscle weakness and cramps, especially in the right leg following her hip replacement 2006 and is getting physical therapy still for this. Has some lesions on the back which she wanted meto look at. Does use sunscreen. Does have a history of seborrheic keratosis. No headaches, blackout s pells, or dizziness. No history of anxiety or depression. Does have a history of an enlarged thyroid, she has been told this in the past. No temperature intolerance or weight loss or gain. 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 Colonoscopy was 04/2010 normal - strong FHx - repeat in 5 years. EXAMINATION: Pleasant older woman in no acute distress. Blood pressure is 139/73. Heart rate is 65. Height is 66.25 inches. Weight is 188. BMI is 30.4 Skin: She has multiple seborrheic keratoses on herback, scattered, small, light brown. Pupils are equal and reactive to light. Arterials are mildly narrowed. Ears are clear with diminished light reflex. Oropharynx: Teeth in good condition. Mucous membranes are moist. No lesions. Posterior pharynx: No drainage. Neck is supple with no palpable thyroid and it does not appear that she has fullness and there is no tenderness, no carotid bruit, no masses.Her lungs are clear throughout with no wheezes or rhonchi, no rales. Her breasts show scars from thereduction, well-healed, breast are firm, no discrete masses, no axillary nodes. No supraclavicular nodes. Her heart is regular, rate is 65 with no appreciable murmur, no click, no gallop. Abdomen has amidline well- healed scar from her , good bowel sounds, soft without organomegaly, no masses. No tenderness. Femoral pulses are 2+ and equal. No inguinal adenopathy. Pelvic was not done since it was done 09/2010. Her extremities have some dilated venules on the lower left medial ankle, calf and lower part of the legs have some dilated varicosities. Pedal pulses are 2+ and equal in the feet, no pedal edema. Cranial nerves are intact. Motor strength of the upper and lower extremities is equal,5+/5+ bilaterally. Reflexes are 2+/4+ and equal bilaterally in the upper and lower extremities. ASSESSMENT AND PLAN 1. Annual exam: Tetanus UTD. Needs PPD and will schedule nurse visit. Pelvic was done in September. Had blood work early January hgb, CRP, BMP, rubella titer and TSH and all normal. Recent lipid through [facility]. 2. Vaginal atrophy - controlled with Estrace cream - continue 3. Osteopenia - Patient should take 1200mg of calcium/day in divided doses and vitamin D3 1000IU/day. Doing exercise. Get vit D level and get DXA in 11/2011 and then see me a few wks later 4. HTN - good control 5. Urinary incontinence. Seeing Dr Landeros. significant Mehreen Johnston MD documented in this encounter Plan of Treatment Upcoming Encounters Date Type Specialty Care Team Description 09/10/2022 Office Visit Internal Medicine LogeaisMargot MD [address] [place] [phone] (Wo rk) documented as of this encounter Procedures Procedure Name Priority Date/Time Associated Diagnosis Comme nts ROUTINE UA WITH Routine 03/19/2011 11:00 Preventative health R esults for this MICROSCOPIC AM CDT care procedure are i n the results section. documented in this encounter Results (ABNORMAL) Routine UA with microscopic (03/19/2011 11:00 AM CDT) Component Value Ref Test Analysis Performed At [facility] gist Range Method Time Signature Color Urine Yellow [facility] Appearance Urine Clear [facility] Glucose Urine Negative NEG [facility] mg/dL [facility] Bilirubin Urine Negative NEG [facility] Ketones Urine Negative NEG [facility] mg/dL [facility] Specific [place] 1.016 1.003 - [facility] Urine 1.035 [facility] Blood Urine Negative NEG [facility] pH Urine 5.0 5.0 - [facility] 7.0 pH [facility] Protein Albumin Negative NEG [facility] Urine mg/dL [facility] Urobilinogen Normal 0.0 - [facility] mg/dL 2.0 [place] mg/dL [facility] Nitrite Urine Negative NEG [facility] Leukocyte Negative NEG [facility] Esterase Urine [facility] Source Unspecified [facility] Urine [facility] WBC Urine 1 0 - 2 [facility] /HPF [facility] RBC Urine 1 0 - 2 [facility] /HPF [facility] Squamous 1 0 - 1 [facility] Epithelial /HPF /HPF [facility] Mucous Urine Present (A) NEG /LPF [facility] Specimen Anatomical Collection Method Collection Time Receive d Time (Source) Location / / Volume Laterality Urine specimen 03/19/2011 11:00 1 3:39 (specimen) AM CDT PM CDT Mehreen Johnston MD PhD LAB - URINE ORDERABLES Performing Organization Address City/State/ZIP Code Phon e Number [facility] [address] [place], [place] [id number] [place] [address] LABS documented in this encounter Visit Diagnoses Diagnosis Preventative health care - Primary Routine general medical examination at a health care facility Osteopenia Disorder of bone and cartilage, unspecif ied documented in this encounter Care Teams Shingle Catcher Relationship Specialty Start Date End Date Mehreen Johnston MD PhD PCP - General Family Practice 03/19/11 documented as of this encounter
--- OUTSIDE RECORDS SUMMARY | 2022-07-30 19:33 | XMS_ITS | Encounter Summary ---
:1945 Author Organization [facility] Address [address] [place] [address]. [place] [address] Care Team Providers Name Role Phone Lisseth Vang MD Primary Care Provider Encounter Details Date Type Department Care Team Description 02/20/2011 Telephone Women's Health Mehreen Green MD PhillipsClarice PhD [address] Floor, [address] [place] [phone] Social History Tobacco Use Types Packs/Day Years Used Date Smoking Tobacco: Never Smokeless Tobacco: Never Alcohol Use Standard Drinks/Week Comments No 0 (1 standard drink = 0.6 oz pure alcoho l) Sex Assigned at Date Recorded Female 12/20/2018 4:10 PM CDT documented as of this encounter Miscellaneous Notes Telephone Encounter - Tiffanie Marcos - 02/20/2011 9:29 AM CDT I called patient back to advise that i got her medication ordered for her. Telephone Encounter - Tiffanie Marcos - 02/20/2011 9:20 AM CDT Message copied by TIFFANIE MARCOS on WedFebruary 20, 2011 9:20 AM ------ Message from: SIERRA THEODORE Created: WedFebruary 19, 2011 3:32 PM Regarding: CALL BACK REQUESTED Contact: Patient states she needs a prescription from her [facility] MD (renewed from a long time ago) estrace cream vaginal cream She says she has been waiting for quite a while to hear back about this request. Please call Into her new pharmacy: [facility]: And call # above to leave a msg confirming Thank you! JJH documented in this encounter Plan of Treatment Upcoming Encounters Date Type Specialty Care Team Description 09/10/2022 Office Visit Internal Medicine LogMargot sadler MD [address] [address] (Wo rk) documented as of this encounter Visit Diagnoses Diagnosis Menopause - Primary Symptomatic menopausal or female climact froy states documented in this encounter Care Teams Online Retailer Relationship Specialty Start Date End Date Lisseth Vang MD PCP - General 02/05/11 03/18/[address] [place] [address] [address] [place], [place] [id number] documented as of this encounter
--- OUTSIDE RECORDS SUMMARY | 2022-07-30 19:33 | XMS_ITS | Encounter Summary ---
:1945 Author Organization [place] Address [address] [place] [address]. [place] [address] Care Team Providers Name Role Phone Unavailable Primary Care Provider Unavailable Encounter Details Date Type Department Care Team Description 12/04/2010 Office Visit-[facility] Anh Costa, Physicians Heart TACK PULLER PAUL [facility] 4th Floor, Clinic [address] [place] [phone] Social History Tobacco Use Types Packs/Day Years Used Date Smoking Tobacco: Never Alcohol Use Standard Drinks/Week Comments Not Asked 0 (1 standard drink = 0.6 oz pure alcoho l) Sex Assigned at Date Recorded Female 12/20/2018 4:10 PM CDT documented as of this encounter Progress Notes Anh Costa - 12/04/2010 3:30 PM CST [employer] Chief: Anh Costa Status: Final Encounter: 04 Dec 2010 Type: Cardiology Visit Active Problems Acute Urinary Retention (788.20) Hematuria (599.70) Hemorrhoids (455.6) Hyperlipidemia (272.4) Hypertension (401.9) Osteoarthritis Of The Hip (715.95) Osteopenia (733.90) Rest Tremor - Head Symptomatic Menopause (627.2) Vaginal Mucosa Atrophy. Reason For Visit Patient is a 65 year old lady who is here for follow up cardiovascular examination related to history of hypertension and hyperlipidemia. Pain Eval Current history of pain associated with this visit is denied. HPI Ms. Sheikh is a 65 year old female with a history of hypertension and hyperlipidemia with elevatedtriglycerides. 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 She thinks this has improved some but slight tremor is visible today.She feels well without chest pain or shortness of breath. Over the winter she has gained about 15 pounds because of inactivity. She is also wondering about additional lipid testing (NMR-particle size evaluation) which is not covered b her insurance. She request this be obtained anyway but results are not back yet. Repeat artery elasticity today with continued improvement to 3.8 for small artery (was 3.4). Blood pressures today lower on recheck (121/65 and 130/72). PMH 1) 1 para 1 status post in 1978. Was on and off hormone therapy- She [facility] and started on prometrium and has been on low dose viville dot for a couple of months. Helping her sleep and hot flashes. 2) Status post breast reduction 1996. 3) Osteoarthritis of the right hip Minimal invasive surgery 09/09. 4) Drug sensitivies to codeine and morphine with significanat nausea. . Current Meds Med list offered and patient declined. MIRALAX POWD 3350NF;17 grams tid; Rx [place] 3 1000 MG Capsule;TAKE 2 CAPSULE TWICE DAILY; RPT Glucosamine CAPS;TAKE 1 CAPSULE EVERY 12 HOURS; RPT Magnesium 200 MG Tablet;TAKE 4 TABLET DAILY; RPT Multivitamins TABS;TAKE 2 TABLET DAILY PRN; RPT Vitamin D3 1000 UNIT Tablet;TAKE 1 TABLET DAILY.; RPT Propranolol HCl CR 60 MG Capsule Extended Release 24 Hour;TAKE 1 CAPSULE DAILY in the morning; Rx Estrace 0.1 MG/GM Cream;INSERT 1 APPLICATOR AT [facility] FOR 2 WEEKS, THEN 1/2 APPLICATOR QHS FOR 2 WEEKS THEN 1/2 APPLICATOR 3 TIMES/WEEK; Rx Calcium + D 250-125 MG-UNIT Tablet;TAKE 2 TABLET TWICE DAILY; Rx ROCÍO Stockings Thigh length;thigh high rocío stockings; Rx ROCÍO Stockings Knee length;USE DIRECTED; Rx AAA-MED RECONCILE;per patient; RPT. Allergies Codeine Derivatives Latex Morphine Derivatives Tape; Rash. Family Hx FAMILY HISTORY: Mother last year at age 93 from colon cancer. She does have a history of irregular heart beat for approximately ten years. Father at age 79 of CHF with reported previous PE, attributed to his hypertension and heart failure. She has four sisters, 59, 68, 67, and 70, reported in good health. She has one brother, 55, who in a motor vehicle accident. Maternal grandmother at 84 of pancreatic cancer. Maternal grandfather at 82 of heart attack. Paternal grandmother at 65 of heart problems. Paternal grandfather at 70 of pneumonia after the flu. 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 She has one son age 31. Never smoked. ROS Constitutional: No fever, chills, or sweats. No weight gain/loss. ENT: No visual disturbance, ear ache, epistaxis, sore throat. Allergies/Immunologic: Negative. Respiratory: No cough, hemoptysis. Cardiovascular: As per HPI. GI: No nausea, vomiting, hematemesis, melena, or hematochezia. : No urinary frequency, dysuria, or hematuria. Integument: Negative. Psychiatric: Negative. Neuro: Negative. Endocrinology: Negative. Musculoskeletal: Negative. Vital Signs Recorded by tbyrne on 04 Dec 2010 03:34 PM BP:139/74, RUE, Sitting, HR: 73 b/min, Resp: 16 r/min, Height: 67 in, Weight: 180.9 lb, BMI: 28.3 kg/m2, Pain Scale: 0, O2 Sat: 98 (%SpO2), RA. Recorded by [email or web address] on 04 Dec 2010 04:00 PM BP:121/65, RUE, Sitting, HR: 62 b/min, R Radial, Normal. Physical Exam In general, the patient is a pleasant female in no apparent distress. HEENT: NC/AT. PERRLA. EOMI. Sclerae white, not injected. Nares clear. Pharynx without erythema or exudate. Dentition intact. Neck: No adenopathy. No thyromegaly. Carotids +4/4 bilaterally without bruits. No jugular venous distension. Lungs: CTA. No ronchi, wheezes, rales. Cor: RRR. Normal S1, S2 splits physiologically. Soft 1/6 systolic murmur, no rub, click, or gallop. The PMI is in the 5th ICS in the midclavicular line. There isno heave. Abdomen: Soft, nontender, nondistended. No organomegaly. No bruits. Extremities: No clubbing, cyanosis, or edema. The pulses are +4/4 at the radial and PT sites bilaterally. Results AST 02 Dec 2010 07:47 AM - AST: 40 u/l Lipid Panel, Reflex 02 Dec 2010 07:47 AM - Cholesterol: 225 mg/dL - Triglyceride: 127 mg/dL - Direct Measure HDL: 73 mg/dL - LDL-Cholesterol: 127 mg/dL - VLDL-Cholesterol: 25 mg/dL - Chol/HDLC Ratio: 3.1. Assessment Blood pressure is at target today with two rechecks with propranolol with some improvement in familial tremor. Her artery elasticity remains improved with change from KAILYN to betablocker but stil in theborderline range. LDL is above target of 100 with hypertension but her LDL is above average. She is also taking fish oil, 4 caps per day which can elevate LDL levels but may improve particle size. Her triglycerides have improved despite weight gain and lack of exercise most likely as a result of increase in fish oil tablets over the last year. Plan 1. Follow up after after NMR and Lpa results have returned. 2. Repeat Malin exam in 2011. Signed by Anh Costa, MSN, RN, SLOT SHIFT SUPERVISOR Nurse Practitioner [facility] Mail Code [address][id number] [place] [address] phone: [phone] fax: [phone]. Signature Signed By: Anh Costa N.P.; 12/05/2010 3:36 PM HAIR AND MAKEUP DESIGNER. AND MAKEUP DESIGNER documented in this encounter Plan of Treatment Upcoming Encounters Date Type Specialty Care Team Description 09/10/2022 Office Visit Internal Medicine Margot Branham MD [address] [place] [phone] (Wo rk) documented as of this encounter Visit Diagnoses Not on filedocumented in this encounter
--- OUTSIDE RECORDS SUMMARY | 2022-07-30 19:33 | XMS_ITS | Encounter Summary ---
:1945 Author Organization [place] Address [address] [place] [address]. [place] [address] Care Team Providers Name Role Phone Mehreen Johnston MD PhD Primary Care Provider [phone] Reason for Visit Reason Comments Incontinence Encounter Details Date Type Department Care Team Description 04/02/2011 Office Visit Outpatient Carlota Landeros Urinary rete ntion; Interventional and MD [facility] Urgency of urination; [facility] [id number] Mixed incontinence urge and stress (male)(female) [place] [address],Clinic [address] [place] [address] [facility] [address] (Work) [place], [place] [address] [phone] Social History Tobacco Use Types Packs/Day Years Used Date Smoking Tobacco: Never Smokeless Tobacco: Never Alcohol Use Standard Drinks/Week Comments No 0 (1 standard drink = 0.6 oz pure alcoho l) Sex Assigned at Date Recorded Female 12/20/2018 4:10 PM CDT documented as of this encounter Last Filed Vital Signs Vital Sign Reading Time Taken Comments Blood Pressure 123/71 04/02/2011 1:56 PM CDT Pulse 73 04/02/2011 1:56 PM CDT Temperature 36.8 ??C (98.2 ??F) 04/02/2011 1:56 PM CDT Respiratory Rate 15 04/02/2011 1:56 PM CDT Oxygen Saturation - - Inhaled Oxygen Concentration - - Weight - - Height - - Body Mass Index - - documented in this encounter Progress Notes Carlota Landeros A - 04/02/2011 2:10 PM CDT Reason for Visit: PNE Clinical Data: Ms. Ramona Sheikh is a very pleasant 65 year old female who demonstrated good bladder compliance and normal bladder capacity on urodynamic evaluation, however no detrusor contraction. She c/o urgency and mixed incontinence and her residual urines are elevated. We had discussed performing sic vs. interstim and she would like to proceed with the latter. Procedure: The patient was identified correctly, consented and placed in the prone position. The patient's sacral area was prepped and draped in the usual sterile fashion. Using the fluoroscope in the AP position the medial aspects of the sacral foramena were identified and marked. The fluoroscope wasthen placed in the lateral position and the S3 foramen was identified and marked. Using marcaine with bicarb bilateral insertion sites were injected to anesthetize the skin. Once this was achieved a 3 1/2 inch needle was inserted on the right side until it was passed through the S3 foramen as seen on fluoroscopy. Next the needle was tested and the patient had a danial response at about 3 and no toe r esponse but she did feel it perineal and towards the vagina. Tthis was the best response on the right. The same was then done on the left and a danial response was seen at about 3 with a similar response. The right needle is higher in the foramen. At this point the stilette was removed from the insertion needle and the electrode was passed until the 3 1/2 inch tania on both sides. The needle was pulled out leaving the electrode in place. These were secured down with steri- strips and a dressing was applied. All appropriate wires were put in place and attached to the generator and the [employer] fulfillment representative went over instructions with the patient. Ms. Ramona Sheikh will f/u with me in 1 week for lead removal and to go over results of the trial.She is not able to see me on Wednesday so she can see our PA Uma Burrell on Wednesday instead. Thank you for allowing me to participate in the care of Ms. Ramona Sheikh and I will keep you updated on her progress. Carlota Landeros MD documented in this encounter Nursing Notes 04/02/2011 1:45 PM CDT >> RITU MERE REGALADO [facility] Apr 02, 2011 2:22 PM Pause for the cause has been completed prior to procedure. Ramona was identified by both name and date of - YES. The correct site was identified - YES. Site marked by provider - YES. Written informed consent correct and signed or verbal authorization to proceed is obtained - YES. Verify necessary supplies, equipment, and diagnostics are available - YES. Time out is performed immediately prior to procedure - YES. documented in this encounter Plan of Treatment Upcoming Encounters Date Type Specialty Care Team Description 09/10/2022 Office Visit Internal Medicine Margot Branham MD [address] [place] [phone] (Wo rk) Scheduled Orders Name Type Priority Associated Diagnoses Order S chedule Urology Imaging Routine Urgency of urina tion Ordered: 04/02/2011 percutaneous/peripheral Mixed incontinenc e urge NRV evaluation ([facility]C and stress (male)(female) Clinic) Urinary retention documented as of this encounter Visit Diagnoses Diagnosis Urinary retention Retention of urine, unspecified Urgency of urination Mixed incontinence urge and stress (male )(female) documented in this encounter Care Teams Trimmer Meat Relationship Specialty Start Date End Date Mehreen Johnston MD PhD PCP - General Family Practice 03/19/11 11/15/11 documented as of this encounter
--- OUTSIDE RECORDS SUMMARY | 2022-07-30 19:33 | XMS_ITS | Encounter Summary ---
:1945 Author Organization [place] Address [address] [place] [id number] Care Team Providers Name Role Phone Mehreen Johnston MD PhD Primary Care Provider [phone] Reason for Visit Reason Comments PPD Reading 0 mm negative results Encounter Details Date Type Department Care Team Description 04/17/2011 Office Visit Gynecologic Cancer Mehreen Johnston MD PhD [address] [place] [address] [phone] Preventative [facility] Center Nurse, [facility] (Primary Dx) [facility] 1st Floor, Clinic [address] [place] [phone] Social History Tobacco Use Types Packs/Day Years [...] Office Visit Internal Medicine Margot Branham MD [address] [place] [address] [phone] (Wo rk) documented as of this encounter Visit Diagnoses Diagnosis Preventative health care - Primary Routine general medical examination at a health care facility documented in this encounter Care Teams Fruit Coordinator Relationship Specialty Start Date End Date Mehreen Johnston MD PhD PCP - General Family Practice 03/19/11 11/15/11 documented as of this encounter
--- OUTSIDE RECORDS SUMMARY | 2022-07-30 19:33 | XMS_ITS | Encounter Summary ---
:1945 Author Organization [facility] Address [address] [place] [address]. [place] [address] Care Team Providers Name Role Phone Unavailable Primary Care Provider Unavailable Encounter Details Date Type Department Care Team Description 12/11/2010 Abstract [facility] Info Mgmt Abstra ct, Provider Srvcs [address] [place] [address] Social History Tobacco Use Types [...] Office Visit Internal Medicine LogeaisMargot MD [address] [phone] (Wo rk) documented as of this encounter Visit Diagnoses Not on filedocumented in this encounter
--- OUTSIDE RECORDS SUMMARY | 2022-07-30 19:33 | XMS_ITS | Encounter Summary ---
:1945 Author Organization [place] Address [address] [place] [address]. [place] [address] Care Team Providers Name Role Phone Mehreen Johnston MD PhD Primary Care Provider [phone] Reason for Visit Auth/Cert - Closed Specialty Diagnoses / Procedures Referred By Contact Refer red To Contact Surgery Diagnoses Urinary urgency Ur Periop Procedures IMPLANT STIMULATOR AND LEADS SACRAL NERVE (STAGE ONE AND TWO) [address] [place] [address] Phone: Fax: Referral ID Status Reason Start Date Expiration Date Visits Requ ested Visits Authorized [id number] Closed 05/01/2011 10/28/2011 1 1 Encounter Details Date Type Department Care Team Description 05/19/2011 Surgery [facility] Carlota Landeros, INSERTION, ELECTRODE Per[facility]Op Services LEAD AND PULSE [address] [facility] [address] ALYSSA GENERATOR, [place] [address] 100 NEUROSTIMULATOR, SACRAL [phone] [place], [place] [address] (Wo rk) Surgery Details Date/Time Status Location OR Service Patient Case Class Case Tr auma Class Type Case? 05/19/11 9:20 Posted UR OR UR OR Urology Same Day AM 12 Surgery Panel 1 Procedure LRB Anes Op Region Wound Class Commen ts INSERTION, ELECTRODE LEAD AND Right MAC Sacrum II-Vamshi an Contaminated PULSE GENERATOR, NEUROSTIMULATOR, SACRAL Surgeon Surgeon Role Service Panel Carlota Landeros MD Primary Urology 1 documented in this encounter Social History Tobacco Use Types Packs/Day Years Used Date Smoking Tobacco: Never Smokeless Tobacco: Never Alcohol Use Standard Drinks/Week Comments No 0 (1 standard drink = 0.6 oz pure alcoho l) Sex Assigned at Date Recorded Female 12/20/2018 4:10 PM CDT documented as of this encounter Last Filed Vital Signs Vital Sign Reading Time Taken Comments Blood Pressure 140/77 05/19/2011 9:00 AM CDT Pulse - - Temperature 36.5 ??C (97.7 ??F) 05/19/2011 9:00 AM CDT Respiratory Rate 18 05/19/2011 9:00 AM CDT Oxygen Saturation 97% 05/19/2011 9:00 AM CDT Inhaled Oxygen Concentration - - Weight 83.6 kg (184 lb 4.9 oz) 05/19/2011 9:00 AM CDT Height 168.9 cm (5' 6.5) 05/19/2011 9:00 AM CDT Body Mass Index 29.3 05/19/2011 9:00 AM CDT documented in this encounter Discharge Instructions Discharge InstructionsMertoglBibi Stein 05/19/2011 12:29 PM CDT -You may shower [...] visit. You may call the Urology clinic [phone] during daytime hours or [phone] and ask to speak with the Urology resident hydro generation manager after hours. [facility] Same-Day Surgery Adult Discharge Orders & Instructions [...] To contact a doctor, call or: ??? [phone] and ask for the resident hydro generation manager for (answered 24 hours a day) ??? Emergency Department: [facility]: [phone] (TTY for hearing impaired: [phone]) [facility]: [phone] (TTY for hearing impaired: [phone]) documented in this encounter Medications at Time [...] twice a week. Use creamIndications: 1/2 applicator Menopause twice weekly fish oil-omega-3 fatty [...] that wereplaced yesterday by Dr. Yo. Sarina Cruz RN - 05/18/2011 11:26 AM CDT Laterality verified as LEFT by Dr. Landeros, herbert Pelaez RN of Dr. Landeros. documented in this encounter [...] of fluoroscopic imaging Surgeon: Carlota Landeros MD Regulatory Affairs Consultant(s): Arlette Fernandez Anesthesia: Local anesthesia with MAC [...] Office Visit Internal Medicine LogeaisMargot MD [address] [phone] (Wo rk) Pending Results Name Type Priority [...] SACRAL documented in this encounter Visit Diagnoses Not on filedocumented in this encounter Administered Medications Inactive Administered Medications - up to 3 most recent administrations Medication Order MAR Action Action Date Dose Rate Site ceFAZolin (ANCEF) 1 g Given 05/19/2011 11:36 AM 1 g Operative vial to attach to IVPB CDT Site/Surgical S ite Routine, Intravenous, PRN, Starting on Wed05/19/11 at 1136, Intra-procedure lidocaine 1 % injection Given 05/19/2011 11:33 AM 20 mLs Operativ e Site/Surgical PRN, Starting on Wed CDT Site 05/19/11 at 1133, Intra-procedure Lidocaine 1% injection 1 mL Given 05/19/2011 [...] (Given - Provider: Carlota Landeros) PRN, Starting 05/19/11 at 1133, Intra-procedure Lidocaine 1% injection [...] Pre-procedure documented in this encounter Care Teams Nurse Assessor Relationship Specialty Start Date End Date Mehreen Johnston MD PhD PCP - General Family Practice 03/19/11 11/15/11 documented as of this encounter
--- OUTSIDE RECORDS SUMMARY | 2022-07-30 19:33 | XMS_ITS | Encounter Summary ---
:1945 Author Organization [facility] [place] Address [address] [place] [address]. [place] [address] Care Team Providers Name Role Phone Mehreen Johnston MD PhD Primary Care Provider [phone] Encounter Details Date Type Department Care Team Description 05/18/2011 Telephone UROLOGY CLINIC AND Lo Burrell FOR PROSTATE AND Sherice mcrae PA-C UROLOGIC CANCERS [address] [place] [address] [address] FLOOR, [address] [facility], [facility] [address] [phone] Social History Tobacco Use Types Packs/Day Years Used Date Smoking Tobacco: Never Smokeless Tobacco: Never Alcohol Use Standard Drinks/Week Comments No 0 (1 standard drink = 0.6 oz pure alcoho l) Sex Assigned at Date Recorded Female 12/20/2018 4:10 PM CDT documented as of this encounter Miscellaneous Notes Telephone Encounter - Lo Burrell - 05/18/2011 11:16 AM CDT Urology Phone Notes: Hi Nissrine! She said that the left side worked best. The patient had several Q's about a h/o adverse reactions to anesthesia in the past - this was with general and she did fine with conscious sedation for a recent colonoscopy. Nonetheless, she is quite anxious about it and I offered to set up a presurgical anesthesia consult for her. Task to Max to help set it up - I think they can just do the whole preop right? Thanks! Uma ----- Message ----- From: Carlota Landeros Sent: 05/11/2011 4:50 PM To: Lo Burrell Subject: RE: surgery questions Brayan Eaton, Can you please find out, when it was working which one worked better and which side she wants it implanted on, b/c we can only do one side. Thanks so much ----- Message ----- From: Lo Burrell Sent: 05/11/2011 11:03 AM To: Carlota Landeros Subject: surgery questions Hi Carlota! This patient is scheduled for phase II Interstim next Wednesday, 05/19, with you. I received two VM messages last week from her outlining her concerns with adverse reactions to anesthesia - stating she had awful vertigo and dry heaves in the past. I'm assuming this was with general anesthesia, but I'llfind out. She also states that the LEFT side worked better for her - and this was confirmed by ultrasound which I'm assuming was a PVR. When I saw her to have her PNE leads removed in clinic, the left side was almost entirely out and she said that both sides worked but the RIGHT worked better. So, not sure what to make of that. Please let me know if you'd like me to call the patient and provide more information, reassurance, etc. I'll make a call today and see if she has any other questions. Thanks, Uma documented in this encounter Plan of Treatment Upcoming Encounters Date Type Specialty Care Team Description 09/10/2022 Office Visit Internal Medicine Margot Branham MD [address] [place] [phone] (Wo rk) documented as of this encounter Visit Diagnoses Not on filedocumented in this encounter Care Teams Gas Meter Checker Relationship Specialty Start Date End Date Mehreen Johnston MD PhD PCP - General Family Practice 03/19/11 11/15/11 documented as of this encounter
--- OUTSIDE RECORDS SUMMARY | 2022-07-30 19:33 | XMS_ITS | Encounter Summary ---
:1945 Author Organization [facility] Address [address] [place] [address]. [place] [address] Care Team Providers Name Role Phone Mehreen Johnston MD PhD Primary Care Provider [phone] Encounter Details Date Type Department Care Team Description 05/13/2011 Orders Only UROLOGY CLINIC AND Carlota Landeros Urg ency [facility] PROSTATE AND UROLOGIC [address] CANCERS [place] [address] [place], [place] BUILD[place] [address] [address]LO[address], [address] [facility] [address] [address] Social History Tobacco Use Types Packs/Day [...] Visit Internal Medicine LogMargot sadler MD [address] [address] (Wo rk) documented as of this encounter Visit Diagnoses Diagnosis Urgency of urination - Primary documented in this encounter Care Teams Pharmaceutical Scientist Relationship Specialty Start Date End Date Mehreen Johnston MD PhD PCP - General Family Practice 03/19/11 11/15/11 documented as of this encounter
--- OUTSIDE RECORDS SUMMARY | 2022-07-30 19:33 | XMS_ITS | Encounter Summary ---
:1945 Author Organization [place] Address [address] [place] [id number] Care Team Providers Name Role Phone Unavailable Primary Care Provider Unavailable Encounter Details Date Type Department Care Team Description 12/02/2010 Historic Results [facility] Anh Costa, Physicians Heart DIRECTOR BUILDING PAUL [facility] 4th Floor, Clinic [address] [phone] Social History Tobacco Use [...] Visit Internal Medicine Logeais, MD Margot [address] [phone] (Wo rk) documented as of this encounter Procedures Procedure Name Priority Date/Time Associated Comments Diagnosis SEND OUTS MISC TEST Routine 12/02/2010 7:47 AM Re sults for this DENTAL PRACTITIONER procedure are i n the results section. LIPOPROTEIN A Routine 12/02/2010 7:47 AM Results for this DENTAL PRACTITIONER procedure are i n the results section. LIPID REFLEX TO Routine 12/02/2010 7:47 AM Result s for this DIRECT LDL PANEL DENTAL PRACTITIONER procedure a re in the results section. AST Routine 12/02/2010 7:47 AM Results f or this DENTAL PRACTITIONER procedure are i n the results section. ALT Routine 12/02/2010 7:47 AM Results f or this DENTAL PRACTITIONER procedure are i n the results section. documented in this encounter Results ALT (12/02/2010 7:47 AM DENTAL PRACTITIONER) athologist Signature ALT 28 0 - 50 U/L MISYS Specimen Anatomical Collection Method Collection Time Receive d Time (Source) Location / / Volume Laterality 12/02/2010 7:47 AM 1 7:41 DENTAL PRACTITIONER AM DENTAL PRACTITIONER Anh Costa APRN, CNP LAB - BLOOD ORDERABLES Performing Organization Address [facility] Phon e Number MISYS AST (12/02/2010 7:47 AM DENTAL PRACTITIONER) P athologist Signature AST 40 0 - 45 U/L MISYS Specimen Anatomical Collection Method Collection Time Receive d Time (Source) Location / / Volume Laterality 12/02/2010 7:47 AM 1 7:41 DENTAL PRACTITIONER AM DENTAL PRACTITIONER Anh Costa APRN, CNP LAB - BLOOD ORDERABLES Performing Organization Address [facility] Phon e Number MISYS (ABNORMAL) Lipid panel reflex to direct LDL (12/02/2010 7:47 AM DENTAL PRACTITIONER) P athologist Signature Cholesterol 225 (H) 0 - 200 MISYS mg/dL Comment: LDL Cholesterol is the primary guide to therapy. The NCEP recommends further evaluation of: patients with cholesterol <200 mg/dL if additional risk factors are present, cholesterol >240 mg/dL, triglycerides >150 mg/dL, or HDL <40 mg/dL. Triglycerides 127 0 - 150 mg/dL MISYS Comment: Fasting specimen HDL Cholesterol 73 50 - 110 mg/dL MISYS LDL Cholesterol Calculated 127 0 - 129 mg/dL MISYS Comment: LDL Cholesterol is the primary guide to therapy: LDL-cholesterol goal in high risk patients is <100 mg/dL and in very high risk patients is <70 mg/dL. VLDL-Cholesterol 25 0 - 30 mg/dL MISYS Cholesterol/HDL Ratio 3.1 0.0 - 5.0 MISYS Specimen Anatomical Collection Method Collection Time Receive d Time (Source) Location / / Volume Laterality 12/02/2010 7:47 AM 1 7:41 DENTAL PRACTITIONER AM DENTAL PRACTITIONER Anh Costa APRN, CNP LAB - BLOOD ORDERABLES Performing Organization Address [facility] Phon e Number MISYS Lipoprotein A (12/02/2010 7:47 AM DENTAL PRACTITIONER) P athologist Signature Lipoprotein A 18 <30 mg/dL MISYS Comment: Lp(a) greater than 30 mg/dl pos es increased risk for cardiac disease. Specimen Anatomical Collection Method Collection Time Receive d Time (Source) Location / / Volume Laterality 12/02/2010 7:47 AM 1 7:41 DENTAL PRACTITIONER AM DENTAL PRACTITIONER Anh Costa APRN, CNP LAB - BLOOD ORDERABLES Performing Organization Address City/[facility] Phon e Number MISYS Send outs misc test (12/02/2010 7:47 AM DENTAL PRACTITIONER) Patholo gist Method Time Signature Test Name NMR LIPOPROFILE MISYS Send Outs Serum MISYS Misc Test Specimen Normal Range SEE REPORT MISYS for Send Outs Misc Test Lab Scanned Laboratory MISYS Result Scanned Result [id number] Specimen Anatomical Collection Method Collection Time Receive d Time (Source) Location / / Volume Laterality 12/02/2010 7:47 AM 1 7:41 DENTAL PRACTITIONER AM DENTAL PRACTITIONER Ahn Costa APRN, CNP LAB - BLOOD ORDERABLES Performing Organization Address City/[facility]/ZIP Code Phon e Number MISYS documented in this encounter Visit Diagnoses Not on filedocumented in this encounter
--- OUTSIDE RECORDS SUMMARY | 2022-07-30 19:33 | XMS_ITS | Encounter Summary ---
:1945 Author Organization [place] Address [address] [place] [address]. [place] [address] Care Team Providers Name Role Phone Mehreen Johnston MD PhD Primary Care Provider [phone] Encounter Details Date Type Department Care Team Description 05/18/2011 Telephone UROLOGY CLINIC AND Lo Burrell FOR PROSTATE AND Sherice mcrae PA-C UROLOGIC CANCERS [address] [place] [address] 4TH FLOOR, [address] [facility] [address] [phone] Social History Tobacco Use Types Packs/Day Years Used Date Smoking Tobacco: Never Smokeless Tobacco: Never Alcohol Use Standard Drinks/Week Comments No 0 (1 standard drink = 0.6 oz pure alcoho l) Sex Assigned at Date Recorded Female 12/20/2018 4:10 PM CDT documented as of this encounter Miscellaneous Notes Telephone Encounter - Lo Burrell - 05/18/2011 10:23 AM CDT Urology Note: Patient scheduled to undergo Phase II Interstim in the near future with Dr. Landeros. She has concerns about adverse reactions to general anesthesia in the past and met with anesthesia for a pre-operativeconsult this morning. They have recommended using versed, propofol, fentanyl, and zofran. They will also use a scopolamine patch preoperatively. If OK with surgical team, decadron was also recommended. The patient had left me a VM last week with concerns about how long it would be until she could ridea horse. I spoke with Dr. Landeros and at a minimum the patient should avoid horse back riding for at least 4 weeks, and even then, she should be very careful. Discussed recommendations over the phone with the patient, she is agreeable to this plan. Thanks, Uma Burrell PA-C Department of Urologic Surgery documented in this encounter Plan of Treatment Upcoming Encounters Date Type Specialty Care Team Description 09/10/2022 Office Visit Internal Medicine Margot Branham MD [address] [phone] (Wo rk) documented as of this encounter Visit Diagnoses Not on filedocumented in this encounter Care Teams Java Technical Architect Relationship Specialty Start Date End Date Mehreen Johnston MD PhD PCP - General Family Practice 03/19/11 11/15/11 documented as of this encounter
--- OUTSIDE RECORDS SUMMARY | 2022-07-30 19:33 | XMS_ITS | Encounter Summary ---
:1945 Author Organization [place] Address [address] [place] [address]. [place] [address] Care Team Providers Name Role Phone Unavailable Primary Care Provider Unavailable Encounter Details Date Type Department Care Team Description 01/02/2011 Telephone [facility] Shanell Baum MD [facility] [address] [place], [place] [address] Floor [place] [phone] Social History Tobacco Use Types Packs/Day Years Used Date Smoking Tobacco: Never Smokeless Tobacco: Never Alcohol Use Standard Drinks/Week Comments No 0 (1 standard drink = 0.6 oz pure alcoho l) Sex Assigned at Date Recorded Female 12/20/2018 4:10 PM CDT documented as of this encounter Miscellaneous Notes Telephone Encounter - Katina Rivera - 01/08/2011 9:26 AM CDT Left message that letter has been sent and she may also call back to speak with us. Telephone Encounter - Katina Rivera - 01/08/2011 9:24 AM CDT Quyen Cruz - Returning call From Quyen Cruz Sent Friday January 07, 2011 4:06 PM To P [facility] Rn Team Subject Returning call Patient Ramona Sheikh [[id number]] (: 1945) Phone Entered Pt Home Sender [phone] Message Pt is getting frustrated, she is returning a phone call to the clinic. She says no one leaves their name or what the message is, they just tell her to call back to the clinic. She said they mentioned something about orders but she doesn't know what that means. 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 She would like a call back tomorrow morning with a detailed message and she will trying calling back to the clinic between 11:00-11:30am tomorrow. Telephone Encounter - Katina Rivera - 01/06/2011 11:04 AM CDT Letter sent. Unsuccessful in reaching patient by phone. Telephone Encounter - Katina Rivera - 01/02/2011 12:11 PM CDT Quyen Cruz - Returning call From Quyen Cruz Sent Sunday January 02, 2011 11:58 AM To P [facility] Rn Team Subject Returning call Flags Call patient Patient Ramona Sheikh [[id number]] (: 1945) Phone Entered Pt Home Sender [phone] Message Pt received message from clinic that she could not understand, she would like someone to call her back and speak clearly and slowly if they leave a voicemail. Telephone Encounter - Katina Rivera - 01/02/2011 9:38 AM CDT Left message for patient to call [facility]. Wanted to clalrifie patient request. Telephone Encounter - Shanell Baum MD - 01/02/2011 7:30 AM CDT What Labs. I think she saw Dr. Johnston yesterday. I haven't seen her for awhile. CJT Telephone Encounter - Shanell Baum MD - 01/02/2011 7:27 AM CDT Message copied by SHANELL BAUM on WedJan 02, 2011 7:27 AM ------ Message from: KATINA RIVERA Created: WedJan 01, 2011 3:30 PM Contact: ----- Message ----- From: Shayy Mckenna Sent: 01/01/2011 3:26 PM To: [facility] Rn Team Pt would like labs to be done tomorrow morning. Telephone Encounter - Shanell Baum MD - 01/02/2011 7:27 AM CDT Message copied by SHANELL BAUM on WedJan 02, 2011 7:27 AM ------ Message from: KATINA RIVERA Created: WedJan 01, 2011 3:30 PM Contact: ----- Message ----- From: Shayy Mckenna Sent: 01/01/2011 3:26 PM To: [facility] Rn Team Pt would like labs to be done tomorrow morning. documented in this encounter Plan of Treatment Upcoming Encounters Date Type Specialty Care Team Description 09/10/2022 Office Visit Internal Medicine LogeaisMargot MD [address] [place] [phone] (Wo rk) documented as of this encounter Visit Diagnoses Not on filedocumented in this encounter
--- OUTSIDE RECORDS SUMMARY | 2022-07-30 19:34 | XMS_ITS | Encounter Summary ---
:1945 Author Organization [place] Address [address] [place] [address]. [place] [address] Care Team Providers Name Role Phone Unavailable Primary Care Provider Unavailable Encounter Details Date Type Department Care Team Description 11/19/2010 Abstract M [facility] Info Mgmt Abstra ct, Provider Srvcs [address] [place] [address] Social History Tobacco Use Types [...] Office Visit Internal Medicine LogeaisMargot MD [address] [phone] (Wo rk) documented as of this encounter Visit Diagnoses Not on filedocumented in this encounter
--- OUTSIDE RECORDS SUMMARY | 2022-07-30 19:34 | XMS_ITS | Encounter Summary ---
:1945 Author Organization [place] Address [address] [place] [address]. [place] [address] Care Team Providers Name Role Phone Unavailable Primary Care Provider Unavailable Encounter Details Date Type Department Care Team Description 09/25/2010 Office Visit-[facility] INTERFACE P DEPT Provider, [facility] Nurs e Social History Tobacco Use Types Packs/Day Years Used Date Smoking Tobacco: Never Alcohol Use Standard Drinks/Week Comments Not Asked 0 (1 standard drink = 0.6 oz pure alcoho l) Sex Assigned at Date Recorded Female 12/20/2018 4:10 PM CDT documented as of this encounter Progress Notes Provider, [facility] Nurse - 09/25/2010 10:00 AM CST Skinner Pelts: Tonya Lorenzo Status: Final Encounter: 25 Sep 2010 Type: AMB Nurse Triage Note Informant Time of call: 16:27 Date of call: 09/25/2010 Home [phone] Caller: Patient REASON FOR CALL: Other: Patient has questions about her follow up with Dr. Landeros. She saw Dr. Landeros at the [facility]. She was told she will be following up with Dr. Landeros at the Urology Clinic. Plan Protocol Reference: N/A Protocol Used : N/A Plan: Patient was given the phone number to the Urology Clinic . Coun/Edu Caller verbalized understanding of plan Caller agrees with advice given. Signature Signed By: Tonya Lorenzo R.N.; 09/25/2010 4:29 PM FLASH WELDER. documented in this encounter Plan of Treatment Upcoming Encounters Date Type Specialty Care Team Description 09/10/2022 Office Visit Internal Medicine LogMargot sadler MD [address] [place] [phone] (Wo rk) documented as of this encounter Visit Diagnoses Not on filedocumented in this encounter
--- OUTSIDE RECORDS SUMMARY | 2022-07-30 19:34 | XMS_ITS | Encounter Summary ---
:1945 Author Organization [place] Address [address] [place] [address]. [place] [address] Care Team Providers Name Role Phone Unavailable Primary Care Provider Unavailable Reason for Visit Reason Comments Urgent Care Cough 1 1/2 weeks ago had sinus in fection; was given Augmentin. Has also had productive cough (green sput um) for 2 weeks which is getting worse. Encounter Details Date Type Department Care Team Description 07/23/[address] [facility] Delbert Cooper, [facility] Reed OLIVEROS (Primar y Dx) [address] [phone] Social History Tobacco Use Types Packs/Day Years Used Date Smoking Tobacco: Never Alcohol Use Standard Drinks/Week Comments Not Asked 0 (1 standard drink = 0.6 oz pure alcoho l) Sex Assigned at Date Recorded Female 12/20/2018 4:10 PM CDT documented as of this encounter Last Filed Vital Signs Vital Sign Reading Time Taken Comments Blood Pressure 124/64 07/23/2010 8:25 PM CDT Pulse 64 07/23/2010 8:25 PM CDT Temperature 37.5 ??C (99.5 ??F) 07/23/2010 8:25 PM CDT Respiratory Rate - - Oxygen Saturation 96% 07/23/2010 8:25 PM CDT Inhaled Oxygen Concentration - - Weight - - Height - - Body Mass Index - - documented in this encounter Progress Notes Delbert Cooper - 07/23/2010 10:16 PM CDT SUBJECTIVE: Ramona Sheikh is a 64 year old female presenting with a chief complaint of nasal congestion, rhinorrhea, cold symptoms, cough and hoarse voice. Onset of symptoms was 2 week(s) ago. Course of illness is improving. Was treated with anti-biotics last week. Severity mild Current and Associated symptoms: nasal congestion, rhinorrhea, cold symptoms and cough Treatment measures tried include: fluids, rest, anti-biotics. Predisposing factors include recent illness. Past Medical History Diagnosis Date ??? RHINITIS ??? Fibroid uterus ??? Deviated nasal septum Dr Baer ENT Current outpatient prescriptions Medication Sig ??? diphenhydrAMINE (BENADRYL) 25 MG tablet Take 25 mg by mouth every 6 hours as needed. Has been taking 2 at night lately. ??? fluticasone (FLONASE) 50 MCG/ACT nasal spray 2 sprays by Both Nostrils route daily. ??? propranolol (INDERAL) 80 MG tablet Take 80 mg by mouth 3 times daily. ??? methylPREDNISolone (MEDROL DOSEPACK) 4 MG tablet Take by mouth See Admin Instructions. follow package directions ??? ANTIHISTAMINE OR None Entered History Substance Use Topics ??? Tobacco Use: Never ??? Alcohol Use: Not on file ROS: CONSTITUTIONAL:NEGATIVE for fever, chills, change in weight ENT/MOUTH: nasal congestion, postnasal drainage and rhinorrhea-clear RESP:cough-non productive CV: NEGATIVE for chest pain, palpitations or peripheral edema GI: NEGATIVE for nausea, abdominal pain, heartburn, or change in bowel habits OBJECTIVE :BP 124/64 Pulse 64 Temp(Src) 99.5 ??F (37.5 ??C) (Oral) SpO2 96% GENERAL APPEARANCE: healthy, alert and no distress EYES: EOMI, PERRL, conjunctiva clear HENT: ear canals and TM's normal. Nose and mouth without ulcers, erythema or lesions NECK: supple, nontender, no lymphadenopathy RESP: lungs clear to auscultation - no rales, rhonchi or wheezes CV: regular rates and rhythm, normal S1 S2, no murmur noted ABDOMEN: soft, nontender, no HSM or masses and bowel sounds normal NEURO: Normal strength and tone, sensory exam grossly normal, normal speech and mentation SKIN: no suspicious lesions or rashes ASSESSMENT: Viral upper respiratory illness PLAN: Fluids, rest, cool mist vaporizer, OTC cough suppressant/expectorant, OTC decongestant/antihistamine, Saline gargles, Warm packs to face, Humidifier and f/u with PCP in 2-3 days. See orders in [employer] documented in this encounter Nursing Notes 07/23/2010 7:15 PM CDT >> JATINDER JEROME Wed Jul 23, 2010 8:30 PM Patient presents with: Urgent Care Cough - 1 1/2 weeks ago had sinus infection; was given Augmentin. Has also had productive cough (green sputum) for 2 weeks which is getting worse. Initial BP 124/64 Pulse 64 Temp(Src) 99.5 ??F (37.5 ??C) (Oral) SpO2 96% There is no height onfile to calculate BMI.. BP completed using cuff size: regular MODESTA Weber documented in this encounter Plan of Treatment Upcoming Encounters Date Type Specialty Care Team Description 09/10/2022 Office Visit Internal Medicine LogeaisJatinder MD [address] [place] [phone] (Wo rk) documented as of this encounter Visit Diagnoses Diagnosis Post-nasal drip - Primary Postnasal drip documented in this encounter
--- OUTSIDE RECORDS SUMMARY | 2022-07-30 19:34 | XMS_ITS | Encounter Summary ---
:1945 Author Organization [facility] Address [address] [place] [address]. [place] [address] Care Team Providers Name Role Phone Unavailable Primary Care Provider Unavailable Encounter Details Date Type Department Care Team Description 05/12/2010 Office Visit-[facility] INTERFACE P DEPT Anh Costa A PRN TORPEDOMAN'S MATE Social History Tobacco Use Types Packs/Day Years Used Date Smoking Tobacco: Never Alcohol Use Standard Drinks/Week Comments Not Asked 0 (1 standard drink = 0.6 oz pure alcoho l) Sex Assigned at Date Recorded Female 12/20/2018 4:10 PM CDT documented as of this encounter Progress Notes Anh Costa - 05/12/2010 1:00 PM CDT Stripper Latex: Anh Costa Status: Amended, Final Encounter: 12 May 2010 Type: Chart Note Pt called prior to her vacation to ask about changing her blood pressure medication to a beta ramin to also help reduce symptoms of familial tremor. Since we did not want to start a new medication just prior to her leaving the community she agreed to wait until she returned the first week in May.Voice mail left for patient to return call. None selective beta blockers typically work better for tremor then selective. Long acting propranolol most likely would have the best benefit but his is not available in generic form. Atenolol is less selective then others so a good alternative and also available in generic form. Will recommend atenolol 25 mg per day and discontinuation of KAILYN. Electronically signed by:Anh Costa N.P. May 08 2010 2:21PM UNIT OPERATOR AMENDMENTS: 1. Pt returned call. In checking with her pharmacy a generic propranolol [place] is available. She will begin and follow up in 1-2 weeks for a nurses visit BP check and 3 months follow up clinic visit. Electronically signed by:Anh Costa N.P. May 09 2010 9:14AM UNIT OPERATOR documented in this encounter Plan of Treatment Upcoming Encounters Date Type Specialty Care Team Description 09/10/2022 Office Visit Internal Medicine LogeaMargot man MD [address] [place] [phone] (Wo rk) documented as of this encounter Visit Diagnoses Not on filedocumented in this encounter
--- OUTSIDE RECORDS SUMMARY | 2022-07-30 19:34 | XMS_ITS | Encounter Summary ---
:1945 Author Organization [place] Address [address] [place] [address]. [place] [address] Care Team Providers Name Role Phone Unavailable Primary Care Provider Unavailable Encounter Details Date Type Department Care Team Description 09/24/2010 Results Only [facility] Mehreen Johnston, [facility] Results MD Decker [address] [place] [address] (Wo rk) Social History Tobacco Use Types [...] Visit Internal Medicine Logeais, MD Margot [address] [facility] [address] [place], [place] [phone] (Wo rk) documented as of this encounter Procedures Procedure Name Priority Date/Time Associated Comments Diagnosis US PELVIC Routine 09/24/2010 12:39 Results for this TRANSABDOMINAL AND PM REIMBURSEMENT CONSULTANT procedure are in TRANSVAGINAL the results section. documented in this encounter Results US Pel W/Trans* (09/24/2010 12:39 PM REIMBURSEMENT CONSULTANT) Anatomical Region Laterality Modality Abdomen/Pelvis Other Specimen (Source) Anatomical Collection Method Collection Time Re ceived Time Location / / Volume Laterality 09/24/2010 12:39 PM REIMBURSEMENT CONSULTANT Impressions 09/24/2010 12:46 PM REIMBURSEMENT CONSULTANT PELVIC ULTRASOUND CLINICAL HISTORY: Palpable right lower abdominal mass. FINDINGS: Comparison study: None previous. Transabdominal and transvaginal study pe rformed. Uterus: Retroverted. Measures 6.5 x 4.4 x 3.5 cm. No intramyometrial lesions. Endometrial cavity is empty. En dometrial thickness is 4 mm, consistent with the postmenopausal state . Right ovary: Measures 1.1 x 2.0 x 2.3 cm . Normal flow. Left ovary: Measures 1.6 x 0.9 x 1.9 cm. No cysts or masses. Normal flow. In the right adnexa there is a 3.8 x 3.5 x 1.7 cm hypoechoic solid mass with internal vascularity and multi ple foci of coarse shadowing calcification. The mass lies between the uterus and right ovary, abutting both. It is difficult to determ ine whether the mass is entirely separate to these structures. IMPRESSION: 3.8 cm diameter solid mass with calcific ation in the right adnexa, between the uterus and right ovary, abut ting both of these structures. Pelvic MRI is recommended for further ev aluation. I have personally reviewed the image and initial interpretation, and I agree with findings. Mehreen Johnston MD PhD IMG US ORDERABLES documented in this encounter Visit Diagnoses Not on filedocumented in this encounter
--- OUTSIDE RECORDS SUMMARY | 2022-07-30 19:34 | XMS_ITS | Encounter Summary ---
:1945 Author Organization [place] Address [address] [place] [address]. [place] [address] Care Team Providers Name Role Phone Unavailable Primary Care Provider Unavailable Encounter Details Date Type Department Care Team Description 11/14/2010 Abstract M [facility] Info Mgmt Abstra ct, Provider Srvcs [address] [place] [address] Social History Tobacco Use Types [...] Office Visit Internal Medicine LogeaisMargot MD [address] [phone] (Wo rk) documented as of this encounter Visit Diagnoses Not on filedocumented in this encounter
--- OUTSIDE RECORDS SUMMARY | 2022-07-30 19:34 | XMS_ITS | Encounter Summary ---
:1945 Author Organization [facility] Address [address] [place] [address]. [place] [address] Care Team Providers Name Role Phone Unavailable Primary Care Provider Unavailable Encounter Details Date Type Department Care Team Description 09/25/2010 Office Visit-[facility] Women's Health Carlota Duvall [facility] [address] [facility] 100 1st Floor, Clinic [address] [place] [address] [place] [address] Social History Tobacco Use Types Packs/Day Years Used Date Smoking Tobacco: Never Alcohol Use Standard Drinks/Week Comments Not Asked 0 (1 standard drink = 0.6 oz pure alcoho l) Sex Assigned at Date Recorded Female 12/20/2018 4:10 PM CDT documented as of this encounter Progress Notes Carlota Landeros - 09/25/2010 10:00 AM CST Sample Wrapper: Carlota Landeros Status: Final Encounter: 25 Sep 2010 Type: [facility] Visit Reason For Visit Patient is here for concerns or urine retention & blood in urine Do you have any other appointments, tests or procedures within the [facility] system for this same day? No. HPI Ms. Sheikh is a 65 y/o female asked to be seen in consultation by Dr. Johnston for the above. In reviewing her records she has had a few intermittent UA's with positive RBC's. The earliest I see is May of 2008. She denies any smoking, no blood thinners, no trauma. She claudia any gross hematuria. She does report slow stream and has a hx of a birch procedure but feels that she does not empty her bladder well. She also has some post void dribbling, but no urgency or frequency. ROS Negative on a 12 point scale except for some tinitus, nasal conjestion, thyroid problems and what ismentioned in the HPI. Pain Eval Current history of pain associated with this visit is denied. Active Problems Hemorrhoids (455.6) Hyperlipidemia (272.4) Hypertension (401.9) Osteoarthritis Of The Hip (715.95) Osteopenia (733.90) Rest Tremor - Head Symptomatic Menopause (627.2) Vaginal Mucosa Atrophy. PSH C section 1978 Breast reduction 1998 Birch procedure. Family Hx Positive for HTn, hrt dz, cancer. Personal Hx Behavioral history: Caffeine use. No tobacco use. Alcohol: Alcohol use. Drug use: Not using drugs. Habits: Good exercise habits. Home environment: No secondhand tobacco smoke in home. Abuse / neglect: No abuse/neglect at home. Work: Using seatbelts. Allergies Codeine Derivatives Latex Morphine Derivatives. Latex Allergy: Yes. Current Meds MIRALAX POWD 3350NF;17 grams tid; Rx Trego 3 1000 MG Capsule;TAKE 2 CAPSULE TWICE [...] length;USE DIRECTED; Rx AAA-MED RECONCILE;per patient; RPT. Med list offered and patient declined. Performance Status GRADE : KARNOFSKY SCALE : PERFORMANCE 0 : 90 & 100 : Fully Active Initial: xuan viramontes 09/25/2010. Physical Exam Constitutional: Well appearing woman in no distress, comfortable, pleasant Psychological: appropriate mood Eyes: anicteric, normal extra-ocular movements Respiratory: No increased effort Musculoskeletal: full range of motion Skin: no concerning lesions, no jaundice Neurological: cranial nerves intact, normal gait, no tremor exam deferred until time of cystoscopy. Results UA on dipstick today is negative RU 0 cc. Assessment 65 y/o female with microhematuria and feeling of incomplete emptying and post void dribbling. Plan Will work up hematuria first and then deal with other problems -urine for cytology and official ua -Ct urogram -f/u with me in urology clinic to review above tests and undergo cystoscopy -once these are dealt with then will likely need a uds test to help figure out what is going on withher slow stream. Thank you so much for allowing me to participate in Ms. Sheikh's care. I will keep you updated on her progress. Signature Signed By: Carlota Landeros M.D.; 09/25/2010 11:01 AM FURNITURE RESTORER. ITURE RESTORER documented in this encounter Plan of Treatment Upcoming Encounters Date Type Specialty Care Team Description 09/10/2022 Office Visit Internal Medicine Margot Branham MD [address] [id number] (Wo rk) documented as of this encounter Visit Diagnoses Not on filedocumented in this encounter
--- OUTSIDE RECORDS SUMMARY | 2022-07-30 19:34 | XMS_ITS | Encounter Summary ---
:1945 Author Organization [place] [facility] Address [address] [place] [address]. [place] [address] Care Team Providers Name Role Phone Unavailable Primary Care Provider Unavailable Encounter Details Date Type Department Care Team Description 05/15/2010 Office Visit-[facility] INTERFACE [facility] DEPT Unknown, Provider Social History Tobacco Use Types Packs/Day Years Used Date Smoking Tobacco: Never Alcohol Use Standard Drinks/Week Comments Not Asked 0 (1 standard drink = 0.6 oz pure alcoho l) Sex Assigned at Date Recorded Female 12/20/2018 4:10 PM CDT documented as of this encounter Progress Notes Unknown, Provider - 05/15/2010 12:00 AM CDT Speaker Wirer: Latanya Wasserman Status: Final Encounter: 15 May 2010 Type: Rooming Note Reason For Visit YIMI GARCIA is a 64 year old female present today with a walk in visit wanting to check blood pressure before starting new medications. Notified Anh Costa of blood pressure. Do you have any other appointments of any type today within the [facility] system? (this includes clinic appt's, Imaging, labs, procedures etc.) No. Pain Eval Current history of pain associated with this visit is denied. Vital Signs Recorded by Latanya Wasserman on 15 May 2010 12:41 PM BP:143/73, RUE, Sitting, HR: 66 b/min, O2 Sat: 97 (%SpO2). Allergies Codeine Derivatives Morphine Derivatives. Current Meds Med list offered and patient declined. MIRALAX POWD 3350NF;17 grams tid; Rx Propranolol HCl CR 60 MG CPCR;TAKE 1 CAPSULE EVERY MORNING DAILY.; RPT Propranolol HCl CR 60 MG Capsule Extended Release 24 Hour;TAKE 1 CAPSULE DAILY in the morning; Rx AAA-MED RECONCILE;per pt.; RPT Vitamin D3 1000 UNIT Tablet;TAKE 1 TABLET DAILY.; RPT Multivitamins TABS;TAKE 2 TABLET DAILY PRN; RPT Magnesium 200 MG Tablet;TAKE 4 TABLET DAILY; RPT Calcium + D 250-125 MG-UNIT Tablet;TAKE 4 TABLET DAILY; RPT Glucosamine CAPS;TAKE 1 CAPSULE EVERY 12 HOURS; RPT Estrace 0.1 MG/GM Cream;INSERT 1 APPLICATOR AT [facility] FOR 2 WEEKS, THEN 1/2 APPLICATOR [facility] FOR 2 WEEKS THEN 1/2 APPLICATOR 3 TIMES/WEEK; Rx Dunmor 3 1000 MG Capsule;TAKE 2 CAPSULE TWICE DAILY; RPT. Signature Signed By: Latanya Wasserman ; 05/29/2010 9:13 AM CUSTOMER ASSISTANCE REPRESENTATIVE. documented in this encounter Plan of Treatment Upcoming Encounters Date Type Specialty Care Team Description 09/10/2022 Office Visit Internal Medicine Log[place], MD Margot [address] [address] (Wo rk) documented as of this encounter Visit Diagnoses Not on filedocumented in this encounter
--- OUTSIDE RECORDS SUMMARY | 2022-07-30 19:34 | XMS_ITS | Encounter Summary ---
:1945 Author Organization [facility] Address [address] [place] [address]. [place] [address] Care Team Providers Name Role Phone Unavailable Primary Care Provider Unavailable Encounter Details Date Type Department Care Team Description 09/25/2010 Results Only [place] P Carlota Acuña [place] [address] [place] [address] [place] [address] (Wo rk) Social History Tobacco Use Types [...] Office Visit Internal Medicine LogeaisMargot MD [address] [phone] (Wo rk) documented as of this encounter Procedures Procedure Name Priority Date/Time Associated Diagnosis Comme nts CYTOLOGY NON PACKAGER OR PACKER AND WEIGHER Routine 09/25/2010 2:20 PM Resul ts for this CHILD CAREGIVER procedure are i n the results section. documented in this encounter Results Cytology non senior environmental engineer (09/25/2010 2:20 PM CHILD CAREGIVER) Component Value Ref Test Analysis Performed At [facility] Method Time Signature Copath Report Patient Name: YIMI GARCIA MR#: [id number] Specimen #: [id number] Collected: 09/25/2010 Received: 09/25/2010 Reported: 09/26/2010 16:25 Ordering Phy(s): CARLOTA ACUÑA SPECIMEN/STAIN PROCESS: Urine ? Pap-Cyto x 1 ---- CYTOLOGIC INTERPRETATION: Urine: ?? Negative for Malignancy Specimen Adequacy: Satisfactory for evaluation. I have personally reviewed all specimens and/or slides, incl uding the listed special stains, and used them with my medical judgmen t to determine the final diagnosis. Electronically signed out by: Paco Pinon M.D., ??[facility] Processed and screened at [facility] CLINICAL HISTORY: hematuria , GROSS: Urine: ??30 ml's of very yellow, clear fluid [facility] LOCATION: [address] ?? [address] COLLECTION SITE: Client: ??[facility] Location: ??[facility] ([facility] Specimen Anatomical Collection Method Collection Time Receive d Time (Source) Location / / Volume Laterality 09/25/2010 2:20 PM 0 2:20 CHILD CAREGIVER PM CHILD CAREGIVER Carlota Acuña MD LAB - [facility] CLINICAL SPECIM EN Performing Organization Address City/State/ZIP Code Phon e Number COPATH documented in this encounter Visit Diagnoses Not on filedocumented in this encounter
--- OUTSIDE RECORDS SUMMARY | 2022-07-30 19:34 | XMS_ITS | Encounter Summary ---
:1945 Author Organization [facility] Address [address] [place] [address]. 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) [address] [address] [phone] Social History Tobacco Use Types Packs/Day Years Used Date Smoking Tobacco: Never Alcohol Use Standard Drinks/Week Comments Not Asked 0 (1 standard drink = 0.6 oz pure alcoho l) Sex Assigned at Date Recorded Female 12/20/2018 4:10 PM CDT documented as of this encounter Last Filed Vital Signs Vital Sign Reading Time Taken Comments Blood Pressure 120/80 07/12/2010 11:46 AM CDT Pulse 67 07/12/2010 11:46 AM CDT Temperature 36.9 ??C (98.4 ??F) 07/12/2010 11:46 AM CDT Respiratory Rate - - Oxygen Saturation 97% 07/12/2010 11:46 AM CDT Inhaled Oxygen Concentration - - Weight - - Height - - Body Mass Index - - documented in this encounter Progress Notes Ruby Staton - 07/12/2010 12:13 PM CDT .SUBJECTIVE: Ramona Sheikh is a 64 year old female here with concerns about sinus infection. She states onset of symptoms were 7 day(s) ago with normal cold sx's which she felt was getting better until 2 days ago she had worsening of sx's. She has had maxillary, frontal pressure. Course of illness is worsening. Severity moderate Current and Associated symptoms: nasal congestion, ear pain bilateral, sore throat, facial pain/pressure, tooth pain, headache and post-nasal drainage Predisposing factors include recent sick contacts. Recent treatment has included: OTC meds and NS nasal irritation. Past Medical History Diagnosis Date ??? RHINITIS ??? Fibroid uterus ??? Deviated nasal septum Dr Baer ENT History Substance Use Topics ??? Tobacco Use: Never ??? Alcohol Use: Not on file ROS: Review of systems negative except as stated above. OBJECTIVE: BP 120/80 Pulse 67 Temp(Src) 98.4 ??F (36.9 ??C) (Oral) SpO2 97% Exam:GENERAL APPEARANCE: healthy, alert and no distress EYES: EOMI, PERRL, conjunctiva clear HENT: ear canals and TM's normal. Nose + erythema and inflammation with clear drainage. Maxillary and frontal sinuses + for tenderness and some edema noted. Mouth without ulcers, erythema or lesions but + for post nasal drainage and irritation. NECK: supple, nontender, no lymphadenopathy RESP: lungs clear to auscultation - no rales, rhonchi or wheezes CV: regular rates and rhythm, normal S1 S2, no murmur noted ABDOMEN: soft, nontender, no HSM or masses and bowel sounds normal NEURO: Normal strength and tone, sensory exam grossly normal, normal speech and mentation SKIN: no suspicious lesions or rashes ASSESSMENT: Sinusitis PLAN: amoxicillin-clavulanate (AUGMENTIN) 875-125 MG per tablet methylPREDNISolone (MEDROL DOSEPACK) 4 MG tablet Follow up with primary clinic if not improving. OTC antihistamines and Tylenol/IBU discussed today. Continue with NS nasal irrigations. documented in this encounter Nursing Notes 07/12/2010 11:15 AM CDT >> SHIRIN RUIZ Sat Jul 12, 2010 11:48 AM Lots of sinus congestion the last couple of days. Started out as normal cold symptoms a week ago. Thick green nasal discharge streaked with blood. Has tried saline nasal rinse with minimal temporary relief. Sinus headache. Face feels puffy. Shirin Ruiz LPN documented in this encounter Plan of Treatment Upcoming Encounters Date Type Specialty Care Team Description 09/10/2022 Office Visit Internal Medicine Log[place], MD Margot [address] [address] (Wo rk) documented as of this encounter Visit Diagnoses Diagnosis Acute sinusitis - Primary Acute sinusitis, unspecified documented in this encounter
--- OUTSIDE RECORDS SUMMARY | 2022-07-30 19:34 | XMS_ITS | Encounter Summary ---
:1945 Author Organization [facility] Address [address] [place] [address] Care Team Providers Name Role Phone Unavailable Primary Care Provider Unavailable Encounter Details Date Type Department Care Team Description 10/06/2010 Results Only [facility] Mehreen Johnston, [facility] Results MD Decker [address] [place] [address] (Wo rk) Social History Tobacco Use Types [...] Visit Internal Medicine Logeais, MD Margot [address] [facility] [address] [place], [place] [address] (Wo rk) documented as of this encounter Procedures Procedure Name Priority Date/Time Associated Diagnosis Comme nts MR PELVIC BONES W/O Routine 10/06/2010 4:23 PM Re sults for this & W CONTRAST CEO AND CO FOUNDER procedure are i n the results section. documented in this encounter Results MRI Pelvis w & w/o contrast (10/06/2010 4:23 PM CEO AND CO FOUNDER) Anatomical Region Laterality Modality Abdomen/Pelvis, SUBRAD MR MSK, UMP MR MSK, UMP MR BODY Other Specimen (Source) Anatomical Collection Method Collection Time Re ceived Time Location / / Volume Laterality 10/06/2010 4:23 PM CEO AND CO FOUNDER Impressions 10/07/2010 10:47 AM CEO AND CO FOUNDER MRI PELVIS CLINICAL HISTORY: Palpable right adnexal mass, for further evaluation of ultrasound findings. TECHNIQUE: Images were acquired with and without in travenous contrast through the pelvis. The following MR images were acq uired without contrast: axial T1, coronal T2, axial T2, sagittal T2, a xial diffusion-weighted and axial apparent diffusion coefficient. Ax ial T1-weighted images with fat saturation were acquired at the foll owing intervals relative to intravenous contrast administration: pre -contrast, 20 seconds, 1 minute, 3 minutes and 5 minutes with sub traction. FINDINGS: Comparison study: Pelvic ultrasound 09/04, CT abdomen and pelvis 09/25/2010. Right adnexal mass: The mass is identifi ed on this study as a round well-defined lesion measuring 3.4 x 3.4 x 3.1 cm. It arises exophytically from the right side of the uterus, contiguous with the uterus superiorly, and the right ovary i s identified separate to it. It is isointense to the myometrium on no ncontrast T1, heterogenous but mildly hypointense to the myometrium on T2, and demonstrates diffuse contrast enhancement of slightly less in tensity than the myometrium. Central foci of low T1 and T2 signal wit hin the mass is consistent with coarse calcification seen on CT. Fi ndings are consistent with an exophytic subserosal fibroid. No evidenc e of invasion into adjacent structures. Remainder of pelvis: Uterus is retrovert ed. No uterine fibroids are seen. Endometrial thickness of 2 mm this is consistent with postmenopausal state. Nabothian cysts ar e seen in the cervix. Both ovaries are normal in appearance. Rectum and bladder are normal in appearance. No pelvic lymphadenopathy. R ight total hip replacement present. Small left hip joint effusion. IMPRESSION: The right adnexal mass has the appearanc e on this study of an exophytic subserosal fibroid. No aggress jennifer or worrisome features, however MRI followup is recommended in 6 months to assess for stability. Comparison with previous outs genevieve films would also be helpful if available. I have personally reviewed the image and initial interpretation, and I agree with findings. Mehreen Johnston MD PhD IMG MRI ORDERABLES documented in this encounter Visit Diagnoses Not on filedocumented in this encounter
--- OUTSIDE RECORDS SUMMARY | 2022-07-30 19:34 | XMS_ITS | Encounter Summary ---
:1945 Author Organization [facility] Address [address] [place] [address]. [place] [address] Care Team Providers Name Role Phone Unavailable Primary Care Provider Unavailable Encounter Details Date Type Department Care Team Description 09/25/2010 Historic Results [facility] Carlota Landeros MD [place] [address] [place] [address] [place] [address] [phone] Social History Tobacco Use Types Packs/Day Years [...] Visit Internal Medicine Margot Branham MD [address] [place] [address] (Wo rk) documented as of this encounter Procedures Procedure Name Priority Date/Time Associated Comments Diagnosis ISTAT CREATININE POCT Routine 09/25/2010 4:16 PM Results for this COMMUNITY MARKETING COORDINATOR procedure are i n the results section. ROUTINE UA WITH Routine 09/25/2010 10:53 Results for this MICROSCOPIC AM COMMUNITY MARKETING COORDINATOR procedure are i n the results section. documented in this encounter Results Creatinine POCT (09/25/2010 4:16 PM COMMUNITY MARKETING COORDINATOR) P athologist Signature Creatinine 0.8 0.52 - 1.04 MISYS mg/dL Comment: New IDMS-traceable calibration beginning 09/19/08 GFR Estimate 72 >60 mL/min/1.7m2 MISYS GFR Estimate If Black 87 >60 mL/min/1.7m2 M ISYS Specimen Anatomical Collection Method Collection Time Receive d Time (Source) Location / / Volume Laterality 09/25/2010 4:16 PM 0 4:25 COMMUNITY MARKETING COORDINATOR PM COMMUNITY MARKETING COORDINATOR Carlota Landeros MD LAB - BEAKER POCT Performing Organization Address City/[facility] Phon e Number MISYS (ABNORMAL) Routine UA with microscopic (09/25/2010 10:53 AM COMMUNITY MARKETING COORDINATOR) Component Value Ref Test Analysis Performed At [facility] Range Method Time Signature Source Unspecified MISYS Urine Color Urine Yellow MISYS Appearance Urine Clear MISYS Glucose Urine Negative NEG MISYS mg/dL Bilirubin Urine Negative NEG MISYS Ketones Urine Negative NEG MISYS mg/dL Specific [place] 1.017 1.003 - MISYS Urine 1.035 Blood Urine Negative NEG MISYS pH Urine 6.5 5.0 - MISYS 7.0 pH Protein Albumin Negative NEG MISYS Urine mg/dL Urobilinogen Normal 0.0 - MISYS mg/dL 2.0 mg/dL Nitrite Urine Negative NEG MISYS Leukocyte Negative NEG MISYS Esterase Urine WBC Urine 1 0 - 2 MISYS /HPF RBC Urine <1 0 - 2 MISYS /HPF Squamous 1 0 - 1 MISYS Epithelial /HPF /HPF Urine Mucous Urine Present (A) NEG /LPF MISYS Specimen Anatomical Collection Method Collection Time Receive d Time (Source) Location / / Volume Laterality 09/25/2010 10:53 09/25/2010 AM COMMUNITY MARKETING COORDINATOR 11:03 AM COMMUNITY MARKETING COORDINATOR Carlota Landeros MD LAB - URINE ORDERABLES Performing Organization Address [facility] Phon e Number MISYS documented in this encounter Visit Diagnoses Not on filedocumented in this encounter
--- OUTSIDE RECORDS SUMMARY | 2022-07-30 19:34 | XMS_ITS | Encounter Summary ---
:1945 Author Organization [facility] Address [address] [place] [address]. [place] [address] Care Team Providers Name Role Phone Unavailable Primary Care Provider Unavailable Encounter Details Date Type Department Care Team Description 11/12/2010 Office Visit-[facility] INTERFACE [facility] DEPT Provider, [facility] [[email or web address] Nurs e Social History Tobacco Use Types Packs/Day Years Used Date Smoking Tobacco: Never Alcohol Use Standard Drinks/Week Comments Not Asked 0 (1 standard drink = 0.6 oz pure alcoho l) Sex Assigned at Date Recorded Female 12/20/2018 4:10 PM CDT documented as of this encounter Progress Notes Provider, [facility] [[email or web address] Nurse - 11/12/2010 11:15 AM CST Program Medical Director: Jai Harvey Status: Signed Encounter: 12 Nov 2010 Type: Invasive Procedure Safety Checklist Invasive Procedure Safety Checklist Date: November 12, 2010 Procedure: CYSTOSCOPY Patient Name: YIMI GARCIA : 1945 ACTION: Complete sections and checkboxes as appropriate. Any discrepancy results in a HARD COPY until resolved. PREPROCEDURE: Yes: Patient ID verified with 2 identifiers (name and or MRN) Yes: Procedure and site verified with patient/designee (when able) Yes: Accurate consent documentation in medical record No: H&P (or appropriate assessment) documented in medical record H&P must be up to 30 days prior to procedure an updated within 24 hours of procedure as applicable No: Relevant diagnostic and radiology test results appropriately labeled and displayed as applicable No: Blood products, implants, devices, and/or special equipment available for the procedure as applicable No: Procedure site(s) marked with provider initials Yes: Marking not required. Reason: TIME OUT: Yes: Time-Out performed immediately prior to starting procedure, including verbal and active participation of all team members addressing: * Correct patient identity * Confirmed that the correct side and site are marked * An accurate procedure consent form * Agreement on the procedure to be done * Correct patient position * Relevant images and results are properly labeled and appropriately displayed * The need to administer antibiotics or fluids for irrigation purposes during the procedure as applicable * Safety precations based on patient history or medication use DURING PROCEDURE: Verification of correct person, site, and procedure occurs any time the responsibility for care of the patient is transferred to another member of the care team. Signature Signed By: Jai Harvey CMA; 11/12/2010 11:26 AM NUCLEAR WASTE PROCESS OPERATOR. Provider, [facility] [[email or web address] Nurse - 11/12/2010 11:15 AM CST Program Medical Director: Wes Jai Status: Final Encounter: 12 Nov 2010 Type: Rooming Note Reason For Visit Patient is here for cystoscopy-hematuria/urinary retention Do you have any other appointments, tests or procedures within the [facility] system for this same day? No. Pain Eval Current history of pain associated with this visit is denied. Active Problems Hematuria (599.70). Acute urinary retention (788.20). Hemorrhoids (455.6) Hyperlipidemia (272.4) Hypertension (401.9) Osteoarthritis Of The Hip (715.95) Osteopenia (733.90) Rest Tremor - Head Symptomatic Menopause (627.2) Vaginal Mucosa Atrophy. Personal Hx Behavioral history: No tobacco use. Home environment: No secondhand tobacco smoke in home. Vital Signs Recorded by Jai Harvey on 12 Nov 2010 11:23 AM BP:120/75, LUE, Sitting, HR: 73 b/min, Weight: 177.5 lb, Pain Scale: 0. Allergies Codeine Derivatives Latex Morphine Derivatives Tape; Rash. Current Meds Med list printed and given to patient. MIRALAX POWD 3350NF;17 grams tid; Rx [place] 3 1000 MG Capsule;TAKE 2 CAPSULE TWICE [...] length;USE DIRECTED; Rx AAA-MED RECONCILE;per patient; RPT. Notes Are you diabetic? No Did you review the problem list? Yes Does patient need any refills today? No Pharmacy reviewed with patient? Yes. Signature Signed By: Jai Harvey CMA; 11/12/2010 11:25 AM NUCLEAR WASTE PROCESS OPERATOR. documented in this encounter Plan of Treatment Upcoming Encounters Date Type Specialty Care Team Description 09/10/2022 Office Visit Internal Medicine Margot Branham MD [address] [place] [phone] (Wo rk) documented as of this encounter Visit Diagnoses Not on filedocumented in this encounter
--- OUTSIDE RECORDS SUMMARY | 2022-07-30 19:34 | XMS_ITS | Encounter Summary ---
:1945 Author Organization [place] Address [address] [place] [address]. [place] [address] Care Team Providers Name Role Phone Unavailable Primary Care Provider Unavailable Encounter Details Date Type Department Care Team Description 11/12/2010 Office Visit-[facility] AND Marilyn Landeros MD [facility] [address] AND UROLOG[facility] CANCERS [address] [place] [address] 4TH FLOOR, [address] [place] [address], (Fax ) [address] [address] Social History Tobacco Use Types Packs/Day Years Used Date Smoking Tobacco: Never Alcohol Use Standard Drinks/Week Comments Not Asked 0 (1 standard drink = 0.6 oz pure alcoho l) Sex Assigned at Date Recorded Female 12/20/2018 4:10 PM CDT documented as of this encounter Progress Notes Carlota Landeros - 11/12/2010 11:15 AM CST Rotary Dump Operator: Carlota Landeros Status: Final - Signature Encounter: 12 Nov 2010 Type: Uro Prostate Visit Department of Urology [facility], [address], 4th Floor [address] [place] [address] RE: Ramona Sheikh : 1945 MUSA: 11/12/2010 OUTPATIENT VISIT NOTE REASON FOR VISIT: Cystoscopy. CLINICAL DATA: Ms. Sheikh is a 65-year-old female with a history of microscopic hematuria. She waslast seen by me in September. In reviewing her records she has had a few intermittent urinalyses withsome positive RBC's, last one was in May 2008. She had a urinalysis in September that was completely within normal limits. Cytopathology was negative for malignancy and her CT urogram was within normal limits from urinary standpoint, there was a small 2.6 cm slightly calcified right adnexal mass. She underwent a pelvic MRI to further characterize this and it was consistent with an exophytic subserosal fibroid and no aggressive or worrisome features, but they recommended a repeat MRI in six months and this was discussed with her by Dr. Johnston. PROCEDURE: The patient was identified correctly, consented and placed in the lithotomy position where her urethra was cleaned and prepped in the usual sterile fashion. Intraurethral lidocaine was injected and given time to take effect. A flexible 16 Monegasque cystoscope was then passed through the urethra into the bladder. The bladder was with 1+ trabeculation, there were no tumors, diverticula or stoneseen. Bilateral ureters were effluxing clear urine and the cystoscope was withdrawn. The patient tolerated the procedure well. ASSESSMENT: 1. This 65-year-old female with microscopic hematuria and negative work up. She also has a very slow stream, that when discussed last we decided to work up her hematuria first and evaluate that and then would address this issue. She has a sense of incomplete bladder emptying and post void dribbling, although at our last visit her residual was zero. PLAN: 1. Schedule video urodynamics to evaluate for bladder function given her symptoms. Regarding her hematuria work up, will obtain another urinalysis and urine cytology in six months, but otherwise I do not think she needs to be followed for three years. Thank you so much for allowing me to participate in Ms. Sheikh's care and I will keep you updated on her progress. Tigre Van MD Department of Urology NN:erin cc: Lisseth Estes M.D. [facility] Electronically signed by:Carlota Landeros M.D. Nov 13 2010 2:14PM COMMUNITY COORDINATOR UNITY COORDINATOR documented in this encounter Plan of Treatment Upcoming Encounters Date Type Specialty Care Team Description 09/10/2022 Office Visit Internal Medicine Margot Branham MD [address] [place] [phone] (Wo rk) documented as of this encounter Visit Diagnoses Not on filedocumented in this encounter
--- OUTSIDE RECORDS SUMMARY | 2022-07-30 19:34 | XMS_ITS | Encounter Summary ---
:1945 Author Organization [place] Address [address] [place] [address]. [place] [address] Care Team Providers Name Role Phone Unavailable Primary Care Provider Unavailable Encounter Details Date Type Department Care Team Description 08/21/2010 Office Visit-[facility] INTERFACE [facility] DEPT Provider, [facility] Nurs e Social History Tobacco Use Types Packs/Day Years Used Date Smoking Tobacco: Never Alcohol Use Standard Drinks/Week Comments Not Asked 0 (1 standard drink = 0.6 oz pure alcoho l) Sex Assigned at Date Recorded Female 12/20/2018 4:10 PM CDT documented as of this encounter Progress Notes Provider, [facility] Nurse - 08/21/2010 6:21 PM CST Production Sanitizer: Priya Martinez Status: Final Encounter: 21 Aug 2010 Type: Triage Nurse Note Informant Time of call: 18:21 Date of call: 08/21/2010 Work [phone] Caller: Patient REASON FOR CALL: Symptomatic sinus complaints; nasal draiange, headcahe,facial pain. Treated by PCP with Augmentin and steroid in early July.Uses nasal rinses and Guaifenisin,humidifer last vist 12/2009 Coblation of turbinates fall 2008. Allergies Codeine Derivatives Morphine Derivatives. Assessment Review with Dr brewer[ ]. Plan Plan: [ ] Margot Dyer will review with Dr. Brewer and call patient. Should probably make appt as not seen since 12/2009. [facility] Caller verbalized understanding of plan. Signature Signed By: Priya Martinez R.N.; 08/26/2010 10:01 AM APPLICATION OPERATIONS ENGINEER; Review. documented in this encounter Plan of Treatment Upcoming Encounters Date Type Specialty Care Team Description 09/10/2022 Office Visit Internal Medicine Logeais, Margot, MD [address] [phone] (Wo rk) documented as of this encounter Visit Diagnoses Not on filedocumented in this encounter
--- OUTSIDE RECORDS SUMMARY | 2022-07-30 19:34 | XMS_ITS | Encounter Summary ---
:1945 Author Organization [address] [place] [address] Care Team Providers Name Role Phone Unavailable Primary Care Provider Unavailable Encounter Details Date Type Department Care Team Description 10/02/2010 Historic Results [facility] MD [place] ED-[address] [place] [address] (Charlotte bentley) Social History Tobacco Use Types Packs/Day Years [...] Visit Internal Medicine LogMargot sadler MD [address] [phone] (Wo mc) documented as of this encounter Procedures Procedure Name Priority Date/Time Associated Comments Diagnosis ROUTINE UA WITH STAT 10/02/2010 2:30 PM Result s for this MICROSCOPIC RESIDENCE COUNSELOR procedure are i n the results section. documented in this encounter Results (ABNORMAL) Routine UA with microscopic (10/02/2010 2:30 PM RESIDENCE COUNSELOR) [facility] Method Time Signature Source Midstream MISYS Urine Color Urine Yellow MISYS Appearance Urine Clear MISYS Glucose Urine Negative NEG mg/dL MISYS Bilirubin Urine Negative NEG MISYS Ketones Urine Negative NEG mg/dL MISYS Specific Scribner 1.011 1.003 - MISYS Urine 1.035 Blood Urine Negative NEG MISYS pH Urine 5.5 5.0 - 7.0 MISYS pH Protein Albumin Negative NEG mg/dL MISYS Urine Urobilinogen Normal 0.0 - 2.0 MISYS mg/dL mg/dL Nitrite Urine Negative NEG MISYS Leukocyte Negative NEG MISYS Esterase Urine WBC Urine <1 0 - 2 MISYS /HPF RBC Urine <1 0 - 2 MISYS /HPF Squamous 1 0 - 1 MISYS Epithelial /HPF /HPF Urine Transitional Epi <1 0 - 1 MISYS /HPF Mucous Urine Present (A) NEG /LPF MISYS Specimen Anatomical Collection Method Collection Time Receive d Time (Source) Location / / Volume Laterality 10/02/2010 2:30 PM 0 1:55 RESIDENCE COUNSELOR PM RESIDENCE COUNSELOR Parul Castaneda MD LAB - URINE ORDERABLES Performing Organization Address City/State/ZIP Code Phon e Number MISYS documented in this encounter Visit Diagnoses Not on filedocumented in this encounter
--- OUTSIDE RECORDS SUMMARY | 2022-07-30 19:34 | XMS_ITS | Encounter Summary ---
:1945 Author Organization [place] Address [address] [place] [address]. [place] [address] Care Team Providers Name Role Phone Unavailable Primary Care Provider Unavailable Encounter Details Date Type Department Care Team Description 10/02/2010 Emergency [facility] [place] Results [address] [place], [place] [phone] (Wo rk) Social History Tobacco Use Types Packs/Day Years Used Date Smoking Tobacco: Never Alcohol Use Standard Drinks/Week Comments Not Asked 0 (1 standard drink = 0.6 oz pure alcoho l) Sex Assigned at Date Recorded Female 12/20/2018 4:10 PM CDT documented as of this encounter Progress Notes Parul Gunn - 10/19/2010 6:47 PM RN ADVICE FINAL ADDENDUM TO T-NOTE Please see T-note. Please see the T-sheet for full details. HISTORY OF PRESENT ILLNESS: Yimi Garcia is a 65-year-old female who, complains of low back pain that she has had for 1 week now. She denies any specific trauma or fall. She describes it as bilateralarea of her low back. It is dull pain that she rates as a 6/10. It is nonradiating but is associatedwith some nausea that she had yesterday. No vomiting, fever or diarrhea. She denies any history of chronic back pain. She does report a back injury 30 years ago, but this did not require any surgery. She thinks that there is a foul odor to her urine, but she denies any dysuria, hematuria. Denies any abdominal pain. The patient's physical exam findings are unremarkable including a normal neuro exam in the lower extremities. The patient had a CT of the abdomen and pelvis done on 09/25. The CT was done because of some blood in the urine as well as followup for pelvic ultrasound, which showed an adnexal mass. The CT is negative for any kidney stones, shows normal appearance of the kidneys, ureters and bladder and is otherwise unremarkable. There is a 3.6 cm, partially-calcified right adnexal mass and there are a few colonic diverticula without any diverticulitis; otherwise, it is unremarkable. In the Emergency Department today, the patient had a urinalysis done which was normal. Of note, shehad a normal creatinine on 09/25. The patient asked for Aleve for pain since we did not have she was given ibuprofen instead. At this point, since her recent CT is negative for AAA or any acute renal cause of her back pain, I think the patient's pain is clinically more suspicious of muscular pain. I do not think she needs any further workup. She is advised to return if she develops fever, worsening pain, lightheadedness, lower extremity numbness or weakness or loss of bowel or bladder control.She is advised to continue with the Aleve and she may also take Tylenol as needed for pain. She is to follow up with her primary care provider in the next couple of days. DIAGNOSIS: Low back pain. Electronically signed on 10/19/2010 18:46 by PARUL GUNN MD MT: PP Name: YIMI GARCIA MRN: [id number] Account: [id number] : 1945 Visit Date: 10/02/2010 Document: [id number] cc: Lisseth Vang MD ADVICE documented in this encounter Plan of Treatment Upcoming Encounters Date Type Specialty Care Team Description 09/10/2022 Office Visit Internal Medicine LogeaMargot man MD [address] [address] (Wo rk) documented as of this encounter Visit Diagnoses Not on filedocumented in this encounter
--- OUTSIDE RECORDS SUMMARY | 2022-07-30 19:34 | XMS_ITS | Encounter Summary ---
:1945 Author Organization [facility] Address [address] [place] [address] Care Team Providers Name Role Phone Unavailable Primary Care Provider Unavailable Encounter Details Date Type Department Care Team Description 09/24/2010 Office Visit-[facility] Women's Health Mehreen Green Phillips-Wangensteen MD PhD Building [address] [place] [address] 1st Floor, Clinic [address] [place] [address] (Wo rk) [id number] [phone] Social History Tobacco Use Types Packs/Day Years Used Date Smoking Tobacco: Never Alcohol Use Standard Drinks/Week Comments Not Asked 0 (1 standard drink = 0.6 oz pure alcoho l) Sex Assigned at Date Recorded Female 12/20/2018 4:10 PM CDT documented as of this encounter Progress Notes Mehreen Johnston - 09/24/2010 9:20 AM CST Exhibit Builder: Mehreen Johnston Status: Final - Signature Encounter: 24 Sep 2010 Type: [facility] Visit Family Medicine & Community Health Department of Family Medicine [place] Mail Code [address] [place] [address] Office: [phone] [facility] [place] First Floor, Clinic [address] [place] [address] [place] [address] Phone:\[phone] Fax:\[phone] RE: Ramona Sheikh : 1945 MUSA: 09/24/2010 OUTPATIENT VISIT NOTE REASON FOR VISIT: Atrophic vaginitis and osteopenia. HISTORY OF PRESENT ILLNESS: This is a 65-year-old woman who I saw in June for vaginal burning and itching. She was given some Estrace cream and we talked about titrating it. Currently she is down to using 1/2 tube two times a week for the last few weeks. The Estrace cream has been helping a lot. She is not having any vaginal bleeding. She is not having any symptoms of burning or itching. She currently is not sexually active. She comes back because she has run out of vaginal cream. She also has not had a Pap in over a year. Her mammogram is also overdue. She also has osteopenia and we have been doing conservative management. She continues with Caltrate two tablets twice a day, vitamin D3 one a day, and magnesium. She reports her exercise is minimal because of the weather and snow. She will be due for a DEXA scan November 2011. She also has high blood pressure, remains on Inderal. We talked about salt restriction. She was recently here for blood work and had a lipid panel. We had increased her fish oil for hot flashes to 4000 mg a day and we were concerned this might affect her lipids. Her most recent cholesterol was 219, triglycerides 178, HDL 66, LDL 117. She also has had problems with urinary retention. She at one point saw Dr. Yeboah but did not appreciate his visit and does not want to go back there. Her most recent urine check did show a small amount of blood and red cells in the high powered field. She has not noticed any gross hematuria. She does not have any CVA pain or history of kidney stones. She is not having any vaginal bleeding. She also has a history of constipation and has been using MiraLax. She was asking questions about what other things she could use. MEDICATIONS: Reviewed by myself in the EMR. ALLERGIES: Codeine, latex, morphine derivatives. TOBACCO USE: Nonsmoker. REVIEW OF SYSTEMS: She does have some night sweats. She has had some weight gain, ringing in the ears, hearing loss. She does have high blood pressure. She gets an occasional right knee pinching feeling. Otherwise, complete review of systems is negative other than as mentioned in the HPI. EXAMINATION: Pleasant older woman in no acute distress. Blood pressure is 126/74. Herat rate is 60. Height is 66.5 inches. Weight is 175. BMI is 27.8. Her breasts are symmetrical with no masses, she has had a reduction mammoplasty. She has no axillary nodes, no supraclavicular nodes. Her heart was regular, rate was 72 with no murmur, no click, no gallop. Her vaginal exam: Labia looked thinned but no ulceration or maceration of the tissue. Her vaginal mucosa again in thin, no rugae. The cervix is atrophic. A Pap was done. On bimanual she had a pelvic , or RLQ mass, no adnexal masses. She has no rectal masses. Rectal tone is good. ASSESSMENT AND PLAN: 1. Vaginal atrophy. Her vaginal tissue appears healthier and she is less symptomatic with the Estrace cream. We will continue with one-half tube twice a week and then go up to three times a week if shestarts getting symptoms again. Her Pap was due so I did do the Pap and pelvic today. Pelvic/abdominal mass. I could feel a mass in the RLQ which was not mobile. Unclear what this is. Will get an abdominal US. Hypertension. Her blood pressure looks good. Continue with the Inderal. Hematuria. She has some small red cells in her urine. It is unclear what the significance of this is. She has had some problems with urinary retention in the past. I am going to have her see Dr. Landeros. Osteopenia. We are doing conservative management. Again, reiterated the importance of exercise. We will get a DEXA scan in November 2011. Healthcare maintenance. Her mammogram is due and I did recommend that. She should come back in aboutthree months and we will do a complete physical exam. I did do a Pap today because of the vaginal atrophy, and I also did a breast exam. I spent 25 minutes with her, more than 50% of that time was in counseling. Mehreen Johnston MD, PhD assembler musical equipment [facility] [phone] or [phone] SA:11 DD 09/24/2010 Electronically signed by:Mehreen Johnston M.D.,PhD Sep 25 2010 12:42PM EDIPHONE OPERATOR HONE OPERATOR Mehreen Johnston - 09/24/2010 9:20 AM CST Exhibit Builder: Mehreen Johnston Status: Final Encounter: 24 Sep 2010 Type: [facility] Visit Reason For Visit Consult re: Dexa results and cholesterol results Do you have any other appointments, tests or procedures within the [facility] system for this same day? No. Pain Eval Current history of pain associated with this visit is as follows: Location: R knee Quality: random sharp pain Severity: 0 (Pain scale 1-10, with 10 being the worst) Duration: [ ] Timing: May Context: [ ] Modifying factors: [ ] Associated signs/symptoms: Aleeve as needed. Personal Hx Behavioral history: No tobacco use. Home environment: No secondhand tobacco smoke in home. Allergies Codeine Derivatives Latex Morphine Derivatives. Current Meds MIRALAX POWD 3350NF;17 grams tid; Rx Dundee 3 1000 MG Capsule;TAKE 2 CAPSULE TWICE DAILY; RPT Glucosamine CAPS;TAKE 1 CAPSULE EVERY 12 HOURS; RPT Magnesium 200 MG Tablet;TAKE 4 TABLET DAILY; RPT Multivitamins TABS;TAKE 2 TABLET DAILY PRN; RPT Vitamin D3 1000 UNIT Tablet;TAKE 1 TABLET DAILY.; RPT Propranolol HCl CR 60 MG CPCR;TAKE 1 CAPSULE EVERY MORNING DAILY.; RPT Propranolol HCl CR 60 MG Capsule Extended Release 24 Hour;TAKE 1 CAPSULE DAILY in the morning; Rx Calcium + D TABS;TAKE 4 TIMES DAILY; RPT Estrace 0.1 MG/GM Cream;INSERT 1 APPLICATOR AT [facility] FOR 2 WEEKS, THEN 1/2 APPLICATOR [facility] FOR 2 WEEKS THEN 1/2 APPLICATOR 3 TIMES/WEEK; Rx AAA-MED RECONCILE;per patient; RPT. Med list offered and patient declined. Signature Signed By: Mehreen Johnston M.D.,PhD; 09/24/2010 6:10 PM EDIPHONE OPERATOR. HONE OPERATOR documented in this encounter Plan of Treatment Upcoming Encounters Date Type Specialty Care Team Description 09/10/2022 Office Visit Internal Medicine LogeaMargot man MD [address] [place] [phone] (Wo rk) documented as of this encounter Visit Diagnoses Not on filedocumented in this encounter
--- OUTSIDE RECORDS SUMMARY | 2022-07-30 19:34 | XMS_ITS | Encounter Summary ---
:1945 Author Organization [place] Address [address] [place] [address]. [place] [address] Care Team Providers Name Role Phone Unavailable Primary Care Provider Unavailable Encounter Details Date Type Department Care Team Description 09/25/2010 Results Only [facility] Mehreen Johnston, [facility] Results MD Decker [address] [place] [address] (Wo rk) Social History Tobacco Use Types [...] Office Visit Internal Medicine LogeaisMargot MD [address] [facility] [address] [place], [place] [phone] (Wo rk) documented as of this encounter Procedures Procedure Name Priority Date/Time Associated Diagnosis Comme nts CT ABDOMEN PELVIS Routine 09/25/2010 5:06 PM Resu lts for this W/O & W CONTRAST VESSEL TRAFFIC OFFICER procedure a re in the results section. documented in this encounter Results CT Abdomen pelvis w & w/o contrast (09/25/2010 5:06 PM VESSEL TRAFFIC OFFICER) Anatomical Region Laterality Modality Abdomen/Pelvis, SUBRAD CT BODY, UMP CT ABDOMEN PELVIS Computed Tomography Specimen (Source) Anatomical Collection Method Collection Time Re ceived Time Location / / Volume Laterality 09/25/2010 5:06 PM VESSEL TRAFFIC OFFICER Impressions 09/29/2010 8:50 AM VESSEL TRAFFIC OFFICER EXAMINATION: CT urogram, 09/25/2010. COMPARISON: None.. HISTORY: ??Microhematuria.. TECHNIQUE: ?Volumetric CT images of the abdomen and pelvis are obtained without and after administratio n of intravenous contrast using the CT urogram protocol. FINDINGS: Lung bases: The lung bases are clear. No pleural or pericardial effusion. Abdomen/pelvis: On the unenhanced scan, no renal, ureter ic or bladder calculi are identified. After administration of intr avenous contrast using a splint bolus technique, no renal masses are identified. There is normal opacification of the renal calyce s with normal appearance of the forniceal angles. No filling defects are identified in the proximal collecting system. There is goo d distention of the ureters without evidence of a filling defect. Th e bladder wall is normal in thickness without evidence of a mass. No focal abnormalities are seen in the l iver, gallbladder, adrenal glands, spleen or pancreas. Small splenu le in the splenic hilum on image 12, series 3. No dilated loops of small or large bowel are noted. Stool throughout the colon. A few colonic diverticula without CT evidence of diverticulitis. Surgical clips adjacent to the medial margin of the cecum (image 64, series 3) . There is a partly calcified right adnexal mass measuring 3.6 cm in m aximum oblique AP diameter, better characterized on pelvic ultrasoun d performed 09/24/2010. Bones: Postoperative changes of the righ t hip joint and proximal femur. Multilevel degenerative changes i n the spine. No suspicious bony lesions. IMPRESSION: 1. Normal CT appearance of the kidneys, ureters and bladder without evidence of mass or filling defect. 2. 3.6 cm partly calcified right adnexal mass, better characterized on prior pelvic ultrasound. Pelvic MRI is a gain recommended for further characterization if indicated. 3. A few colonic diverticula without CT evidence of diverticulitis. I have personally reviewed the image and initial interpretation and agree with the findings. Mehreen Johnston MD PhD IMG CT ORDERABLES documented in this encounter Visit Diagnoses Not on filedocumented in this encounter
--- OUTSIDE RECORDS SUMMARY | 2022-07-30 19:34 | XMS_ITS | Encounter Summary ---
:1945 Author Organization [facility] Address [address] [place] [address]. [place] [address] Care Team Providers Name Role Phone Unavailable Primary Care Provider Unavailable Encounter Details Date Type Department Care Team Description 10/07/2010 Office Visit-[facility] Women's Health Margot Petty Phillips-Wangensteen MD [address] 1st Floor, Clinic [address] [place], [place] [address] [phone] (Wo rk) Social History Tobacco Use Types Packs/Day Years Used Date Smoking Tobacco: Never Alcohol Use Standard Drinks/Week Comments Not Asked 0 (1 standard drink = 0.6 oz pure alcoho l) Sex Assigned at Date Recorded Female 12/20/2018 4:10 PM CDT documented as of this encounter Progress Notes Margot Bustos - 10/07/2010 1:45 PM CST Accounts Receivable Associate: Juli Margot Status: Final Encounter: 07 Oct 2010 Type: [facility] Visit Reason For Visit YIMI GARCIA is a 65 year old female who presents today for a consult. Pt had an MRI done recently and a mass was noted on her right ovary. Do you have any other appointments, tests or procedures within the [facility] system for this same day? No. HPI 65 yo P1001 with h/o fibroid uterus here to discuss possible adnexal mass. Patient has a long h/o fibroid uterus which was seen at time of her c/s and was described as grapefruit size. She has been a patient of Dr. Soria's at [facility] and had an u/s there in 2008 for a single episode of PMB. The u/s showed: 4.2x2.6x3.4 cm right pedunculated fibroid, endometrial thickness of 2.3mm and normal ovaries.A biopsy done near that time was also benign. She then recently saw Dr. Johnston for an annual exam. During that exam a right adnexal mass was palpated. This resulted in an u/s that showed a solid mass near the right ovary and could not discern if was contiguous with the uterus. A follow-up MRI showed that it was the same density as the uterus and certainly a pedunculated fibroid. Radiology recommended a f/u MRI in 6 months to ensure stability. The patient is very worried that she has ovarian CA. ROS Denies abdominal pain, changes in bowel habits or vaginal bleeding. Remainder of 12 point ROS is also negative except anxiety regarding this finding. Pain Eval Current history of pain associated with this visit is denied. PMH Obstetrical History: c/s- possible classical, non cervical dilation, saw grapefruit size fibroid at c/s 31 yrs ago Gynecologic History: cauterized lesions on cervix, no STDs, h/o abnl paps, recent normal. Medical History: htn, microscopic hematuria- ? abnormal urethra, eval ongoing Surgical History: c/s, cervical cauterization, laparoscopic Matias, breast reduction, breast biopsies . Family Hx Her family history is significant for mother with osteoporosis and osteoarthritis. Her father had a DVT in his 70s, when he had congestive heart failure and was hospitalized. She thinks that her sisterhad some problem after a motor vehicle accident but is not certain about that. Personal Hx Behavioral history: Caffeine use. No tobacco use. Alcohol: Not using alcohol. Drug use: Not using drugs. Habits: Moderately exercising less than three times a week. Home environment: No secondhand tobacco smoke in home. Abuse / neglect: No abuse/neglect at home. Work: Using seatbelts. Allergies Codeine Derivatives Latex Morphine Derivatives. Latex Allergy: Yes. Tape; Rash. Current Meds MIRALAX POWD 3350NF;17 grams tid; Rx [place] 3 1000 MG Capsule;TAKE 2 CAPSULE TWICE [...] RPT. Med list offered and patient declined. Vital Signs Recorded by [email or web address] on 07 Oct 2010 01:43 PM BP:126/67, LUE, Sitting, HR: 65 b/min, L Radial, Height: 66.5 in, Weight: 177.4 lb, BMI: 28.2 kg/m2, Pain Scale: 0. Performance Status GRADE : KARNOFSKY SCALE : PERFORMANCE 0 : 90 & 100 : Fully Active Initial: LB 10/07/2010. Physical Exam Constitutional: no distress, comfortable, pleasant, well nourished Vital signs: Reviewed and normal Psychological: Details: somewhat anxious External Genitalia: mildly atrophic external genitalia, BSU negative, no lesions, normal hair distribution Urethral Meatus: Normal size, no abnormal discharge or prolapse, no lesion Urethra: No masses, tenderness, or scarring Bladder: No masses, tenderness, or fullness Vagina: atrophic epithelium, no anterior or posterior wall defects, no lesions, normal muscle tone Cervix: no masses, no lesions or cervical motion tenderness Uterus: small, normal, non-tender, firm, well supported Adnexa: no masses, non-tender Details: difficult to appreciate a right adnexal mass on my exam Anus/Perineum: no lesions, no hemorrhoids Digital Rectal: no masses, normal tone, non-tender, confirms vaginal exam. Results MRI PELVIS W&W/O 06 Oct 2010 04:23 PM - MRI PELVIS W&W/O Principal Result Milk Tanker Driver: CHRIS JOHNSTON DR&& MRI PELVIS CLINICAL HISTORY: Palpable right adnexal mass, for further evaluation of ultrasound findings. TECHNIQUE: Images were acquired with and without intravenous contrast through the pelvis. The following MR images were acquired without contrast: axial T1, coronal T2, axial T2, sagittal T2, axial diffusion-weighted and axial apparent diffusion coefficient. Axial T1-weighted images with fat saturation were acquired at the following intervals relative to intravenous contrast administration: pre-contrast, 20 seconds, 1 minute, 3 minutes and 5 minutes with subtraction. FINDINGS: Comparison study: Pelvic ultrasound 09/24/2010, CT abdomen and pelvis 09/25/2010. Right adnexal mass: The mass is identified on this study as a round well-defined lesion measuring 3.4 x 3.4 x 3.1 cm. It arises exophytically from the right side of the uterus, contiguous with the uterus superiorly, and the right ovary is identified separate to it. It is isointense to the myometrium on noncontrast T1, heterogenous but mildly hypointense to the myometrium on T2, and demonstrates diffuse contrast enhancement of slightly less intensity than the myometrium. Central foci of low T1 and T2 signal within the mass is consistent with coarse calcification seen on CT. Findings are consistent with an exophytic subserosal fibroid. No evidence of invasion into adjacent structures. Remainder of pelvis: Uterus is retroverted. No uterine fibroids are seen. Endometrial thickness of 2 mm this is consistent with postmenopausal state. Nabothian cysts are seen in the cervix. Both ovaries are normal in appearance. Rectum and bladder are normal in appearance. No pelvic lymphadenopathy. Right total hip replacement present. Small left hip joint effusion. IMPRESSION: The right adnexal mass has the appearance on this study of an exophytic subserosal fibroid. No aggressive or worrisome features, however MRI followup is recommended in 6 months to assess for stability. Comparison with previous outside films would also be helpful if available. I have personally reviewed the image and initial interpretation, and I agree with findings. Performed at: [facility]. Assessment Pedunculated fibroid No evidence of adnexal mass. Plan 1. Reviewed findings on recent u/s and MRI and compared with u/s findings from prior U Spec exam. Reassured patient that this was the same mass visualized then and at the time of her . Did recommend f/u MRI; however, given recommedation from Radiology patient desires f/u exam. WIll f/u with MRI in 6 months and if no change then will avoid further imaging of the pelvis unless develops new symptoms. Signature Signed By: Margot Bustos M.D.,FACOG; 10/14/2010 9:20 PM MATERIAL HANDLER FLOORPERSON. RIAL HANDLER FLOORPERSON documented in this encounter Plan of Treatment Upcoming Encounters Date Type Specialty Care Team Description 09/10/2022 Office Visit Internal Medicine LogeaisMargot MD [address] [phone] (Wo rk) documented as of this encounter Visit Diagnoses Not on filedocumented in this encounter
--- OUTSIDE RECORDS SUMMARY | 2022-07-30 19:34 | XMS_ITS | Encounter Summary ---
:1945 Author Organization [facility] Address [address] [place] [address]. [place] [address] Care Team Providers Name Role Phone Unavailable Primary Care Provider Unavailable Encounter Details Date Type Department Care Team Description 06/16/2010 Office Visit-[facility] Women's Health Mehreen Green Phillips-Wangensteen MD PhD Building [address] [place] [address] 1st Floor, Clinic [address] [place] [address] (Wo rk) [phone] Social History Tobacco Use Types Packs/Day Years Used Date Smoking Tobacco: Never Alcohol Use Standard Drinks/Week Comments Not Asked 0 (1 standard drink = 0.6 oz pure alcoho l) Sex Assigned at Date Recorded Female 12/20/2018 4:10 PM CDT documented as of this encounter Progress Notes Mehreen Johnston - 06/16/2010 4:00 PM CDT Compliance Representative: Mehreen Johnston Status: Final Encounter: 16 Jun 2010 Type: [facility] Visit Reason For Visit Patient presents in clinic today for 3 month follow up; osteoporosis. Do you have any other appointments, tests or procedures within the [facility] system for this same day? No. Pain Eval Current history of pain associated with this visit is denied. Personal Hx Behavioral history: No tobacco use. Alcohol: Not using alcohol. Drug use: Not using drugs. Home environment: No secondhand tobacco smoke in home. Allergies Codeine Derivatives Morphine Derivatives. Current Meds MIRALAX POWD 3350NF;17 grams tid; Rx [place] 3 1000 MG Capsule;TAKE 2 CAPSULE TWICE DAILY; RPT Glucosamine CAPS;TAKE 1 CAPSULE EVERY 12 HOURS; RPT Estrace 0.1 MG/GM Cream;INSERT 1 APPLICATOR AT QHS FOR 2 WEEKS, THEN 1/2 APPLICATOR QHS FOR 2 WEEKS THEN 1/2 APPLICATOR 3 TIMES/WEEK; Rx Magnesium 200 MG Tablet;TAKE 4 TABLET DAILY; RPT Multivitamins TABS;TAKE 2 TABLET DAILY PRN; RPT Vitamin D3 1000 UNIT Tablet;TAKE 1 TABLET DAILY.; RPT Propranolol HCl CR 60 MG CPCR;TAKE 1 CAPSULE EVERY MORNING DAILY.; RPT Propranolol HCl CR 60 MG Capsule Extended Release 24 Hour;TAKE 1 CAPSULE DAILY in the morning; Rx Calcium + D TABS;TAKE 4 TIMES DAILY; RPT AAA-MED RECONCILE;per patient; RPT. Med list printed and given to patient. Vital Signs Recorded by Nivia Anderson on 16 Jun 2010 04:30 PM BP:127/63, LUE, Sitting, HR: 59 b/min, L Radial, Height: 66.5 in, Weight: 166.6 lb, BMI: 26.5 kg/m2, Pain Scale: 0. Performance Status GRADE : KARNOFSKY SCALE : PERFORMANCE 0 : 90 & 100 : Fully Active Initial: GENTRY LIN. 06/16/2010. Signature Signed By: Mehreen Johnston M.D.,PhD; 06/16/2010 5:40 PM IT SOLUTIONS ARCHITECT. Mehreen Johnston - 06/16/2010 4:00 PM CDT Compliance Representative: Mehreen Johnston Status: Final - Signature Encounter: 16 Jun 2010 Type: [facility] Visit Family Medicine & [facility] Department of Family Medicine [place] Mail Code [address] [place] [id number] Office: [phone] Women???s [facility] First Floor, Clinic [address] [place] [address] [place] [address] Phone:\[phone] Fax:\[phone] RE: Ramona Sheikh : 1945 MUSA: 06/16/2010 OUTPATIENT VISIT NOTE REASON FOR VISIT: Follow-up osteopenia and vaginal atrophy. HISTORY OF PRESENT ILLNESS: This is a 64-year-old whom I saw in February. At that time, she was having significant symptoms from vaginal atrophy. I gave her esterase cream to use on a scheduled titrating basis. She started it a couple months late because of travel and currently is using a half tube at bedtime for two weeks and then she will go down to a half tube three times a week next week. She feels that this helped a lot, there is less itching, she is more comfortable. She is not having any vaginal bleeding. She is not sexually active. She also has osteopenia. We had done a full osteoporosis consult in February with all her blood work. Currently they are doing conservative treatment. She is taking calcium 1200 mg total a day. She is exercising and walking two to three miles a day and doing weights every other day. She has actually had weight loss from 171 down to 166. I will continue with this and repeat the DEXA in two years. Her bloodwork was normal. Vitamin D level is 45 and her other blood work, parathyroid, magnesium, calcium andalbumin, was all normal. She also has a history of head tremor. She has also seen by cardiology in November and was put on fish oil and it was recommended to get another LDL in six months, which would be due about now. She will come back fasting for this blood test. She was placed on Inderal at that time for her blood pressure and she is wanting to get off of it, as she is losing weight and exercising. For health maintenance, she has recently had a colon test on April 03, which was reported as normal,except for hemorrhoids, and she needs surveillance again in five years. MEDICATIONS: Medications were reviewed by myself in the EMR. ALLERGIES: She has adverse reactions to codeine and morphine. HABITS: Nonsmoker. REVIEW OF SYSTEMS: No cough, wheezing or shortness of breath. No chest pain, racing heart or irregular heartbeat. No nausea, vomiting or heartburn. She does have urinary retention which was picked up when she was seen by the pelvic floor clinic and Dr. Yeboah last year and she, at times, has some urinary incontinence. Currently she is not having dysuria or frequency, but she does report that she wastold that she had urinary retention. PHYSICAL EXAMINATION: Pleasant middle-aged woman in no acute distress. Her blood pressure is 177/63,heart rate 59, height 66.5 inches, weight 156.6, BMI 26.5. Vaginal exam: Her labia seem healthier. Vaginal mucosa is pink and moist. Minimal rugae. Cervix looks healthy. Urethra looks pink and healthy.Bimanual was not done. ASSESSMENT AND PLAN: 1. Vaginal atrophy. Vaginal tissue seems healthier with Esterase cream. Continue with this. We talked about how to titrate it. She will be going down to half tube three times a week. She should call ifshe gets bleeding, otherwise she should use it. If she gets more symptoms, then she should go to nightly for two weeks and then back down to three times a week. Osteopenia. Conservative management. Continue with calcium, exercise and vitamin D. Will repeat the DEXA in two years. Hypertension. Her blood pressure looks good. She is on the Inderal. She wants to go off of it. We can try taking her off of it and if she loses more weight, we can do a trial and see if her blood pressure remains low. Weight loss. Reaffirmed this and encouraged her to continue exercising and working with this. Urinary retention. She had just gone to the bathroom, but I would like to check a UA to see what herpH is. She can drink cranberry juice and lots of fluids and we probably should periodically check it. At some point, we might want to do a post void residual. Will see her back in six months to a year. I spent 25 minutes with her, more than 50% of that time in counseling. Mehreen Johnston MD, PhD bus driver/monitor [facility] [phone] or [phone] SA:11 DD 06/16/2010 Electronically signed by:Mehreen Johnston M.D.,PhD Jun 19 2010 7:41PM IT SOLUTIONS ARCHITECT documented in this encounter Plan of Treatment Upcoming Encounters Date Type Specialty Care Team Description 09/10/2022 Office Visit Internal Medicine LogeaisMargot MD [address] [place] [phone] (Wo rk) documented as of this encounter Visit Diagnoses Not on filedocumented in this encounter
--- OUTSIDE RECORDS SUMMARY | 2022-07-30 19:34 | XMS_ITS | Encounter Summary ---
:1945 Author Organization [facility] Address [address] [place] [address]. [place] [address] Care Team Providers Name Role Phone Unavailable Primary Care Provider Unavailable Encounter Details Date Type Department Care Team Description 05/28/2010 Office Visit-[facility] Unknown, Provider Social History Tobacco Use Types Packs/Day Years Used Date Smoking Tobacco: Never Alcohol Use Standard Drinks/Week Comments Not Asked 0 (1 standard drink = 0.6 oz pure alcoho l) Sex Assigned at Date Recorded Female 12/20/2018 4:10 PM CDT documented as of this encounter Progress Notes Unknown, Provider - 05/28/2010 11:05 AM CDT Ginner Helper: Latanya Wasserman Status: Final Encounter: 28 May 2010 Type: Rooming Note Reason For Visit YIMI GARCIA is a 64 year old female present today with a walk-in visit wanting to have blood pressure checked prior to starting medication. Notified Anh Costa of blood pressure Do you have any other appointments of any type today within the [facility] system? (this includes clinic appt's, Imaging, [...] declined. MIRALAX POWD 3350NF;17 grams tid; Rx Calcium + D 250-125 MG-UNIT Tablet;TAKE 4 TABLET DAILY; RPT Magnesium 200 MG Tablet;TAKE 4 TABLET DAILY; RPT Multivitamins TABS;TAKE 2 TABLET DAILY PRN; RPT Vitamin D3 1000 UNIT Tablet;TAKE 1 TABLET DAILY.; RPT AAA-MED RECONCILE;per pt.; RPT Propranolol HCl CR 60 MG Capsule Extended Release 24 Hour;TAKE 1 CAPSULE DAILY in the morning; Rx Propranolol HCl CR 60 MG CPCR;TAKE 1 CAPSULE EVERY MORNING DAILY.; RPT Estrace 0.1 MG/GM Cream;INSERT 1 APPLICATOR AT QHS FOR 2 WEEKS, THEN 1/2 APPLICATOR QHS FOR 2 WEEKS THEN 1/2 APPLICATOR 3 TIMES/WEEK; Rx Glucosamine CAPS;TAKE 1 CAPSULE EVERY 12 HOURS; RPT [place] 3 1000 MG Capsule;TAKE 2 CAPSULE TWICE DAILY; RPT. Signature Signed By: Latanya Wasserman ; 05/28/2010 11:07 AM ANIMAL STUNNER. documented in this encounter Plan of Treatment Upcoming Encounters Date Type Specialty Care Team Description 09/10/2022 Office Visit Internal Medicine LogeaisMargot MD [address] [place] [phone] (Wo rk) documented as of this encounter Visit Diagnoses Not on filedocumented in this encounter
--- OUTSIDE RECORDS SUMMARY | 2022-07-30 19:34 | XMS_ITS | Encounter Summary ---
:1945 Author Organization [facility] Address [address] [place] [address]. [place] [address] Care Team Providers Name Role Phone Unavailable Primary Care Provider Unavailable Encounter Details Date Type Department Care Team Description 09/23/2010 Office Visit-[facility] Women's Health Lisseth Rocha Phillips-Wangensteen MD [address] 1st Floor, Clinic [address] [place], [place] [phone] (Wo rk) Social History Tobacco Use Types Packs/Day Years Used Date Smoking Tobacco: Never Alcohol Use Standard Drinks/Week Comments Not Asked 0 (1 standard drink = 0.6 oz pure alcoho l) Sex Assigned at Date Recorded Female 12/20/2018 4:10 PM CDT documented as of this encounter Progress Notes Lisseth Vang - 09/23/2010 11:40 AM CST Shopfitter: Lisseth Vang Status: Final Encounter: 23 Sep 2010 Type: [facility] Visit Reason For Visit Patient is here for f/u BP, weight & nutrition Do you have any other appointments, tests or procedures within the [facility] system for this same day? No. HPI Wondering about BP; head tremor, ringing in ears, gained weight since this fall. Not as active. Sitting all day. Vaginal atrophy - using estrogen cream. Saw urogynecologist and had a bad experience. ROS General: Wt increase Head/eyes: [ head tremor] Ears/Nose/Throat: ringing in ears Cardiovascular: None Respiratory: None Gastrointestinal: None Genitourinary:, incontinence Sexual Function: None Musculoskeletal: None Skin: Neurological: None Mental Health: None Endocrine: None. Pain Eval Current history of pain associated with this visit is denied. PMH 1) 1 para 1 status post in 1978. Worries about uterine fibroids - wanting them removed. Not on hormone therapy - stopped hans oseguera in july 2009. Will use topical estrogen cream. 2) Postmenopausal - some hot flashes and night sweats (2-3/night). May consider effexor or gabepentin. 2) Status post breast reduction 1996. 3) Osteoarthritis of the right hip Minimal invasive surgery 09/09. 4) Drug sensitivies to codeine and morphine with significanat nausea. 5) Constipation - hasn't tried turkey Tail yet. 6) Tight vaginal band - vaginismus on estrogen cream Past Surgical history : Hip replacement 09/09 HCM: MAMMOGRAM today, Colonoscopy 07 every 5 years. Immunization Up to date. Personal Hx Behavioral history: Caffeine use. No tobacco use. Alcohol: Not using alcohol. Drug use: Not using drugs. Habits: Good exercise habits. Home environment: No secondhand tobacco smoke in home. Abuse / neglect: No abuse/neglect at home. Work: Using seatbelts. Allergies Codeine Derivatives Morphine Derivatives. Latex Allergy: Yes. Current Meds MIRALAX POWD 3350NF;17 grams tid; Rx [place] 3 1000 MG Capsule;TAKE 2 CAPSULE TWICE [...] 4 TIMES DAILY; RPT AAA-MED RECONCILE;per patient; RPT Estrace 0.1 MG/GM Cream;INSERT 1 APPLICATOR AT QHS FOR 2 WEEKS, THEN 1/2 APPLICATOR QHS FOR 2 WEEKS THEN 1/2 APPLICATOR 3 TIMES/WEEK; Rx. Med list offered and patient declined. Vital Signs Recorded by sixto on 23 Sep 2010 11:49 AM BP:119/69, LUE, Sitting, HR: 59 b/min, Height: 66.5 in, Weight: 175.6 lb, BMI: 27.9 kg/m2, Pain Scale: 0. Performance Status GRADE : KARNOFSKY SCALE : PERFORMANCE 0 : 90 & 100 : Fully Active Initial: xuan wander 09/23/2010. Physical Exam Constitutional: Well appearing woman in no distress, Psychological: appropriate mood Eyes: anicteric, normal extra-ocular movements Ears, Nose and Throat: tympanic membranes clear, nose clear and free of lesions, throat clear, neck supple with full range of motion, no thyromegaly. Neck: No thyroidmegaly. No jugular venous distension. Cardiovascular: regular rate and rhythm, normal S1 and S2, no murmurs, rubs or gallops, peripheral pulses full and symmetric Respiratory: clear to auscultation, no wheezes or crackles, normal breath sounds Breast: Symmetrical without visible distortion or swelling. No masses noted. No nipple inversion, nobreast dimpling or puckering. Axillary area without masses or lympadenapathy. Gastrointestinal: positive bowel sounds, nontender, no hepatosplenomegaly, no masses Musculoskeletal: full range of motion, no edema Skin: no concerning lesions, no jaundice Neurological: normal gait, no tremor WHC time: 25 minutes was spent in direct contact with the patient with greater than 90% in patient education and coordination of care. Assessment 1) Normal BP reading today 2) Vaginal atrophy 3) Head tremor/essential tremor 4) Tinnitus 5) Weight gain (9# in three months). Plan 1) Encouraged an Exercise program - Jazzercise 2) Meditation/ MBSR - she will consider on her own 3) Address dietary changes for weight management 4) Continue with Estrogen cream twice a week 5) Consult with Dr. Landeros regarding incontinence. Therapy Nursing care six. Signature Signed By: Lisseth Vang M.D.; 09/23/2010 5:34 PM VOIP TECHNICIAN. TECHNICIAN documented in this encounter Plan of Treatment Upcoming Encounters Date Type Specialty Care Team Description 09/10/2022 Office Visit Internal Medicine Logeais, MD Margot [address] [place] [phone] (Wo rk) documented as of this encounter Visit Diagnoses Not on filedocumented in this encounter
--- OUTSIDE RECORDS SUMMARY | 2022-07-30 19:35 | XMS_ITS | Encounter Summary ---
:1945 Author Organization [place] Address [address] [place] [address]. [place] [address] Care Team Providers Name Role Phone Unavailable Primary Care Provider Unavailable Encounter Details Date Type Department Care Team Description 08/23/2009 Results Only RESULTS P Aure Chong MD [address] [place], [place] [id number] (Wo rk) Social History Tobacco Use Types [...] Office Visit Internal Medicine LogeaisMargot MD [address] [phone] (Wo rk) documented as of this encounter Procedures Procedure Name Priority Date/Time Associated Diagnosis Comme nts CL AFF SURGICAL Routine 08/23/2009 12:00 AM Resul ts for this PATHOLOGY CARDIAC CATH LAB MANAGER procedure are i n the results section. HCL PAP THIN LAYER Routine 08/23/2009 12:00 AM Re sults for this SCREEN CARDIAC CATH LAB MANAGER procedure are i n the results section. documented in this encounter Results A THIN LAYER PAP SCREEN (08/23/2009 12:00 AM CARDIAC CATH LAB MANAGER) Component Value Ref Test Analysis Performed At [facility] Range Method Time Signature PAP NIL COPATH Copath Report COPATH Patient Name: YIMI GARCIA MR#: [id number] Specimen #: [id number] Collected: 08/23/2009 Received: 08/26/2009 Reported: 09/02/2009 10:20 Ordering Phy(s): AURE CHONG SPECIMEN/STAIN PROCESS: Pap thin layer prep screening ([facility]) ? Pap-Cyto x 1, Digene Reflex HPV x 1 SOURCE: Cervical ---- Pap thin layer prep screening ([facility]) SPECIMEN ADEQUACY: Satisfactory for evaluation. -Transformation zone component present. CYTOLOGIC INTERPRETATION: Negative for Intraepithelial Lesion or Malignancy Electronically signed out by: Clyde Prather M.D., [facility] Processed and screened at [facility] CLINICAL HISTORY: LMP: age 53 Post Menopausal, Previous normal pap Date of Last Pap: 05/01/08 Other: Abnormal in 06/2009 with endometrial cells, insufficie nt cytology for cervical cells, TESTING LAB LOCATION: [facility], [address] ??[id number] COLLECTION SITE: Client: ??[facility] Location: [facility] (B) Specimen (Source) Anatomical Collection Method Collection Time Re ceived Time Location / / Volume Laterality 08/23/2009 08/26/2009 10:5 5 AM CARDIAC CATH LAB MANAGER Aure Chong MD LABORATORY Performing Organization Address City/State/ZIP Code Phon e [facility] (08/23/2009 12:00 AM CARDIAC CATH LAB MANAGER) Component Value Ref Test Analysis Performed At [facility] Range Method Time Signature Copath Report Patient Name: YIMI GARCIA MR#: [id number] Specimen #: [id number] Collected: 08/23/2009 Received: 08/26/2009 Reported: 08/27/2009 16:58 Ordering Phy(s): AURE CHONG SPECIMEN(S): Endometrial biopsy FINAL DIAGNOSIS: Endometrial biopsy: ? - Inactive endometrial fragments with no evidence of malignancy. Electronically signed out by: Greta Recio M.D., [facility] CLINICAL HISTORY: 64 year old female with postmenopausal bleeding and endometr ial cells on Pap smear. GROSS: One specimen is received labeled with the patient's name and medical record number. The specimen is designated endometrial biopsy. ??The speci men consists of multiple luna soft tissue fragments and tissue particles m easuring in aggregate 0.5 x 0.4 x 0.1 cm. ??The tissue fragments and the tissue particles are collected by histowrap. ??Entirely submitted i n one cassette. ??X.Moy/aaron MICROSCOPIC: Performed. Rima Recio MD/nydia 08/27/09 TESTING LAB LOCATION: [facility], [address] ?? [id number] COLLECTION SITE: Client: [facility] Location: [facility] (B) Specimen (Source) Anatomical Collection Method Collection Time Re ceived Time Location / / Volume Laterality 08/23/2009 08/26/2009 9:00 AM CARDIAC CATH LAB MANAGER Aure Chong MD LABORATORY Performing Organization Address City/State/ZIP Code Phon e Number COPATH documented in this encounter Visit Diagnoses Not on filedocumented in this encounter
--- OUTSIDE RECORDS SUMMARY | 2022-07-30 19:35 | XMS_ITS | Encounter Summary ---
:1945 Author Organization [place] Address [address] [place] [address]. [place] [address] Care Team Providers Name Role Phone Lisseth Vang MD Primary Care Provider Mehreen Johnston MD PhD Primary Care Provider [phone] Encounter Details Date Type Department Care Team Description 09/02/2009 Office Visit-[facility] Women's Health Yasmeen JeffClarice Alegria MD [address] 1[address] Floor, Clinic [address] [place] [address] [place], [place] [phone] (Wo rk) [phone] Social History Tobacco Use Types Packs/Day Years Used Date Smoking Tobacco: Never Alcohol Use Standard Drinks/Week Comments Not Asked 0 (1 standard drink = 0.6 oz pure alcoho l) Sex Assigned at Date Recorded Female 12/20/2018 4:10 PM CDT documented as of this encounter Progress Notes Yasmeen Lang - 09/02/2009 4:00 PM CST Rotary Driller Helper: Yasmeen Lang Status: Final Encounter: 02 Sep 2009 Type: U Spec Visit Reason For Visit Follow up EMB Menopause Age: 64 Contraception: None. 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 Pap NILM here and EMB neg for malignancy or hyperplasia. No further bleeding. Path and cyto reviewed w/ pt. Pain Eval Current history of pain associated with this visit is denied. . Personal Hx Behavioral history: No tobacco use. Home environment: No secondhand tobacco smoke in home. Required: Note tobacco use in Findings Template (Personal Hx Rooming). Immunizations No entries. Allergies Codeine Derivatives Morphine Derivatives. Current Meds Multivitamins Capsule;TAKE 1 CAPSULE DAILY.; RPT Glucosamine Chondroitin Complx CAPS;TAKE 1 CAPSULE EVERY 12 HOURS; RPT Calcium + D TABS;TAKE 1 TABLET EVERY 12 HOURS; RPT HydrOXYzine HCl 25 MG Tablet;TAKE 1 TABLET 4 TIMES DAILY NEEDED.; Rx Astelin 137 MCG/SPRAY Solution;USE DIRECTED.; Rx Proctofoam HC 1-1 % Foam;USE DIRECTED.; Rx Vivelle-Dot 0.025 MG/24HR Patch Biweekly;APPLY 1 PATCH TWICE WEEKLY DIRECTED. No further refills from this clinic. Needs to have refilled by [facility] ; Rx Prometrium 100 MG Capsule;TAKE 1 CAPSULE DAILY at bedtime. No further refills from this clinic. Musthave refilled by [facility] MD.; Rx Ibuprofen 600 MG Tablet;TAKE 1 TABLET 4 TIMES DAILY WITH MEALS NEEDED.; Rx MIRALAX POWD 3350NF;17 grams tid; Rx Magnesium 300 MG Capsule;; RPT Misoprostol 200 MCG Tablet;TAKE [address] tablets between cheek and gum30 minutes prior to procedure in clinic, allow to dissolve.; Rx B Complex 1 Tablet;; RPT Astragalus CAPS;; RPT [place] 3 CAPS;TAKE DIRECTED.; RPT AAA-MED RECONCILE;Medications reviewed with the patient.; RPT. Vital Signs Recorded by Thania Rosenbaum on 02 Sep 2009 03:56 PM BP:148/85, RUE, Sitting, HR: 69 b/min, R Radial, Regular, Weight: 169.8 lb, Pain Scale: 0. 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 Plan 1. f/u if any further vag bleeding 2. estring for vag atrophy 3. currently trying to stay off systemic hormones- will reassess if pt desires to start again given her mildly elevated bps- would consider alternate therapy trials before hormones Celso Lang MD. Signature Signed By: Thania Rosenbaum LPN; 09/02/2009 3:58 PM HIGH SCHOOL ART TEACHER. Signed By: Yasmeen Lang M.D.; 09/02/2009 4:37 PM HIGH SCHOOL ART TEACHER. SCHOOL ART TEACHER documented in this encounter Plan of Treatment Upcoming Encounters Date Type Specialty Care Team Description 09/10/2022 Office Visit Internal Medicine Margot Branham MD [address] [address] (Wo rk) documented as of this encounter Visit Diagnoses Not on filedocumented in this encounter Care Teams Gang Boss Relationship Specialty Start Date End Date Lisseth Vang MD PCP - General 02/05/11 03/18/[address] [place], [place] [address] Mehreen Johnston MD PhD PCP - General Family Practice 03/19/11 11/15/11 documented as of this encounter
--- OUTSIDE RECORDS SUMMARY | 2022-07-30 19:35 | XMS_ITS | Encounter Summary ---
:1945 Author Organization [place] Address [address] [place] [address]. [place] [address] Care Team Providers Name Role Phone Unavailable Primary Care Provider Unavailable Encounter Details Date Type Department Care Team Description 11/18/2009 Office Visit-[facility] Anh Costa, Physicians Heart COMMERCIAL LOAN ADMINISTRATOR PAUL Mota [facility] 4th Floor, Clinic [address] [place] [phone] Social History Tobacco Use Types Packs/Day Years Used Date Smoking Tobacco: Never Alcohol Use Standard Drinks/Week Comments Not Asked 0 (1 standard drink = 0.6 oz pure alcoho l) Sex Assigned at Date Recorded Female 12/20/2018 4:10 PM CDT documented as of this encounter Progress Notes Anh Costa - 11/18/2009 10:00 AM CST Data Coordinator: Anh Costa Status: Final Encounter: 18 Nov 2009 Type: Cardiology Visit Active Problems Hemorrhoids (455.6) Hyperlipidemia (272.4) Hypertension (401.9) Osteoarthritis Of The Hip (715.95) Rest Tremor - Head Symptomatic Menopause (627.2). Reason For Visit 64 year old female here for early detection of atherosclerosis exam. Pain Eval Current history of pain associated with this visit is denied. Last Clinic Visit 10/05/08. HPI Ms. Sheikh is a 64 year old female with a history of labile blood pressure, low artery elasticity and midly increased BNP per Malin exam last year. She began treatment of her blood pressure in October with 20mg of lisinopril and is tolerating this without cough or dizziness. Sitting blood pressures today were normal low, lying blood pressures were higher in the 120-130's systolic. Her artery elasticity measurment increased significantly with KAILYN from abnormal 1.4 to 3-4 boarderline to normal range. She also increased her fish oil from 2 tablets per day to 4 per day for hot flashes. She does feel this has helped her. Her triglycerides today are higher then in the past mildly elevated. Her LDL is only a few points higher with increase in fish oil. She has gained about 10 pounds since last year mostly because of caring for her dying mother over the summer and not being physically active. She is now walking with a pedometer trying to get her 10.000 steps per day. She is eatinghealthy avoiding saturated fat foods, eating 4 or more fruits and vegetables. She current does not consume any caffeine beverages or alcohol. Rare salt intake. She was found to be Vitamin D deficient and is supplementing 4000iu until replaced. She does plan todecrease to 1000mg per day eventually. PMH 1) 1 para 1 status post in 1978. Was on and off hormone therapy- [place] [facility] [place] started on prometrium and has been on low dose viville dot for a couple of months. Helping her sleep and hot flashes. 2) Status post breast reduction 1996. 3) Osteoarthritis of the right hip Minimal invasive surgery 09/09. 4) Drug sensitivies to codeine and morphine with significanat nausea. . Current Meds Multivitamins Capsule;TAKE 1 CAPSULE DAILY.; RPT Glucosamine Chondroitin Complx CAPS;TAKE 1 CAPSULE EVERY 12 HOURS; RPT MIRALAX POWD 3350NF;17 grams tid; Rx Magnesium 300 MG Capsule;; RPT B Complex 1 Tablet;; RPT AAA-MED RECONCILE;Medications reviewed with the patient.; RPT Lisinopril 20 MG Tablet;TAKE 1 TABLET DAILY.; Rx Calcium 500 TABS;TAKE 1.5 TABLET DAILY DIRECTED 800mg per day; RPT Marana 3 1000 MG Capsule;TAKE 2 CAPSULE TWICE DAILY; RPT Sgjqwlcfbzg-Wnpinaudpkc-NQG 500-250-250 MG Capsule;TAKE 1 CAPSULE EVERY 12 HOURS; RPT. Allergies Codeine Derivatives Morphine Derivatives. Family Hx FAMILY HISTORY: Mother last year [...] flu. 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 She has one son age 31. Never smoked. Vital Signs [facility] 18 Nov 2009 10:30 AM BP:100/50, LUE, Sitting, Height: 66.75 in, Weight: 170.2 lb, BMI: 26.9 kg/m2. [facility]ed by [facility] on 18 Nov 2009 10:32 AM BP:108/73. Blood pressure check with manual and automatic device with fairly consistent results. Blood pressurelower the usual for patient. Physical Exam In general, the patient is [...] sites bilaterally. No bruits are noted. Results ALT 18 Nov 2009 10:00 AM - ALT: 22 u/l AST 18 Nov 2009 10:00 AM - AST: 31 u/l Lipid Panel, Reflex 18 Nov 2009 10:00 AM - Cholesterol: 227 mg/dL - Triglyceride: 170 mg/dL - Direct Measure HDL: 64 mg/dL - LDL-Cholesterol: 129 mg/dL - VLDL-Cholesterol: 34 mg/dL - Chol/HDLC Ratio: 3.6 NT-proBNP, outpatient 18 Nov 2009 10:00 AM - NT-proBNP, outpatient: 72 pg/ml Microalbumin R Ur 18 Nov 2009 10:00 AM - Creatinine Urine: 180 mg/dL - Microalbumin mg/L: <2 - Microalbumin mg/gCr: Unable to calculate CRP Cardiac Risk 18 Nov 2009 10:00 AM - CRP Cardiac Risk: 5.9 mg/L. Procedures CV greeting card maker today significantly improvment in arterial elasticity with results 3-5 range (was 1.4-1.6 range). Assessment Tolerating lisinopril 20mg without dizziness or dry cough. Out of clinic pressures vary, sometimes higher but may not be completly at rest. Repeat arterial elasticity today was significantly improved from previous results which were very low. Variable blood pressure not unexpected with low artery elasticity but much improved range with low of 100's systolic to most in the 120's to 130's systolic. Shedoes occasionally obtain higher measurments at home but with low clinic pressures today would not increase medication. Will follow up in 6 months for recheck of blood pressure. She is taking more fish oil now for hot flashes which seems to be helping. Will recheck lipids in 6 months since fish oil can increase LDL although helpful to lower triglycerides. Signed by Anh Costa, MSN, RN, SACK LIFTER Nurse Practitioner [facility] [place] Mail Code [id number] [place] [address] phone: [phone] fax: [phone]. Signature Signed By: Anh Costa N.P.; 11/22/2009 8:35 AM AUTOMATION CLERK. MATION CLERK documented in this encounter Plan of Treatment Upcoming Encounters Date Type Specialty Care Team Description 09/10/2022 Office Visit Internal Medicine Margot Branham MD [address] [place] [id number] (Wo rk) documented as of this encounter Visit Diagnoses Not on filedocumented in this encounter
--- OUTSIDE RECORDS SUMMARY | 2022-07-30 19:35 | XMS_ITS | Encounter Summary ---
:1945 Author Organization [place] Address [address] [place] [address]. [place] [address] Care Team Providers Name Role Phone Unavailable Primary Care Provider Unavailable Encounter Details Date Type Department Care Team Description 08/28/2009 Office Visit-[facility] INTERFACE [facility] DEPT Provider, [facility] Nurs e Social History Tobacco Use Types Packs/Day Years Used Date Smoking Tobacco: Never Alcohol Use Standard Drinks/Week Comments Not Asked 0 (1 standard drink = 0.6 oz pure alcoho l) Sex Assigned at Date Recorded Female 12/20/2018 4:10 PM CDT documented as of this encounter Progress Notes Provider, [facility] Nurse - 08/28/2009 4:15 PM CST Gas Furnace Installer: Iris Sharda Status: Final Encounter: 28 Aug 2009 Type: AMB Nurse Triage Note Informant Time of call: 16:15 Date of call: 08/28/2009 Caller: Patient REASON FOR CALL: Scheduling issue. Assessment Pt asking for results of Endometrial biopsy done 08/23/09. Very worried. Reassured. Then asked that Dr. Lang call her on her cell phone with directions on what to do next. Plan Protocol Reference: Pt request Protocol Used : Plan: Task to Nursing @ [facility] for Dr. Lang Call back with any new or worsening symptoms/concerns. [facility] Caller verbalized understanding of plan Caller agrees with advice given Caller's preference is: reassurance she has no cancer. Signature Signed By: Sharda Simmons R.N.; 08/28/2009 4:17 PM COLLEGE COACH. documented in this encounter Plan of Treatment Upcoming Encounters Date Type Specialty Care Team Description 09/10/2022 Office Visit Internal Medicine Margot Branham MD [address] [address] (Wo rk) documented as of this encounter Visit Diagnoses Not on filedocumented in this encounter
--- OUTSIDE RECORDS SUMMARY | 2022-07-30 19:35 | XMS_ITS | Encounter Summary ---
:1945 Author Organization [place] Address [address] [place] [address]. [place] [address] Care Team Providers Name Role Phone Unavailable Primary Care Provider Unavailable Encounter Details Date Type Department Care Team Description 10/22/2009 Office Visit-[facility] INTERFACE [facility] DEPT Provider, [facility] Nurs e Social History Tobacco Use Types Packs/Day Years Used Date Smoking Tobacco: Never Alcohol Use Standard Drinks/Week Comments Not Asked 0 (1 standard drink = 0.6 oz pure alcoho l) Sex Assigned at Date Recorded Female 12/20/2018 4:10 PM CDT documented as of this encounter Progress Notes Provider, [facility] Nurse - 10/22/2009 8:00 AM CST Car Sales Representative: Margot Cooper Status: Signed Encounter: 22 Oct 2009 Type: Rooming Note Reason For Visit YIMI GARCIA is a 64 year old female presenting today for a turbinate coblation. Do you have any other appointments of any type today within the [facility] system? (this includes clinic appt's, Imaging, labs, procedures etc.) No. Pain Eval Current history of pain associated with this visit is denied. Active Problems Hemorrhoids (455.6) Hyperlipidemia (272.4) Hypertension (401.9) Osteoarthritis Of The Hip (715.95) Rest Tremor - Head Symptomatic Menopause (627.2). Tobacco Ed No intervention and counseling on cessation of tobacco use Allergies Codeine Derivatives Morphine Derivatives. Current Meds Med list offered and patient declined. Multivitamins Capsule;TAKE 1 CAPSULE DAILY.; RPT Glucosamine Chondroitin Complx CAPS;TAKE 1 CAPSULE EVERY 12 HOURS; RPT Calcium + D TABS;TAKE 1 TABLET EVERY 12 HOURS; RPT MIRALAX POWD 3350NF;17 grams tid; Rx Magnesium 300 MG Capsule;; RPT B Complex 1 Tablet;; RPT Astragalus CAPS;; RPT [place] 3 CAPS;TAKE DIRECTED.; RPT AAA-MED RECONCILE;Medications reviewed with the patient.; RPT Lisinopril 20 MG Tablet;TAKE 1 TABLET DAILY.; Rx. Signature Signed By: Margot Cooper R.N.; 10/22/2009 3:21 PM SANITATION ENGINEER. documented in this encounter Plan of Treatment Upcoming Encounters Date Type Specialty Care Team Description 09/10/2022 Office Visit Internal Medicine LogeaMargot man MD [address] [place] [id number] (Wo rk) documented as of this encounter Visit Diagnoses Not on filedocumented in this encounter
--- OUTSIDE RECORDS SUMMARY | 2022-07-30 19:35 | XMS_ITS | Encounter Summary ---
:1945 Author Organization [place] Address [address] [place] [address]. [place] [address] Care Team Providers Name Role Phone Unavailable Primary Care Provider Unavailable Encounter Details Date Type Department Care Team Description 12/10/2009 Office Visit-[facility] INTERFACE [facility] DEPT Unknown, Provider Social History Tobacco Use Types Packs/Day Years Used Date Smoking Tobacco: Never Alcohol Use Standard Drinks/Week Comments Not Asked 0 (1 standard drink = 0.6 oz pure alcoho l) Sex Assigned at Date Recorded Female 12/20/2018 4:10 PM CDT documented as of this encounter Progress Notes Unknown, Provider - 12/10/2009 8:00 AM CST Compressor Technician: Ary Esqueda Status: Final Encounter: 10 Dec 2009 Type: Rooming Note Reason For Visit YIMI GARCIA is a 64 year old female presenting today with f/u audio results. Do you have any other appointments of any type today within the [facility] system? (this includes clinic appt's, Imaging, labs, procedures etc.) No. Pain Eval Current history of pain associated with this visit is denied. Allergies Codeine Derivatives Morphine Derivatives. Current Meds Multivitamins Capsule;TAKE 1 CAPSULE DAILY.; RPT Glucosamine Chondroitin Complx CAPS;TAKE 1 CAPSULE EVERY 12 HOURS; RPT MIRALAX POWD 3350NF;17 grams tid; Rx Magnesium 300 MG Capsule;; RPT B Complex 1 Tablet;; RPT Lisinopril 20 MG Tablet;TAKE 1 TABLET DAILY.; Rx Calcium 500 TABS;TAKE 1.5 TABLET DAILY DIRECTED 800mg per day; RPT [place] 3 1000 MG Capsule;TAKE 2 CAPSULE TWICE DAILY; RPT Ydlharkaelt-Bnsytaljzmv-RRT 500-250-250 MG Capsule;TAKE 1 CAPSULE EVERY 12 HOURS; RPT AAA-MED RECONCILE;Medications reviewed with the patient.; RPT. Signature Signed By: Ary Esqueda MA; 12/10/2009 8:03 AM COMMERCIAL CREDIT SPECIALIST. documented in this encounter Plan of Treatment Upcoming Encounters Date Type Specialty Care Team Description 09/10/2022 Office Visit Internal Medicine LogeaMargot man MD [address] [phone] (Wo rk) documented as of this encounter Visit Diagnoses Not on filedocumented in this encounter
--- OUTSIDE RECORDS SUMMARY | 2022-07-30 19:35 | XMS_ITS | Encounter Summary ---
:1945 Author Organization [facility] Address [address] [place] [address]. [place] [address] Care Team Providers Name Role Phone Unavailable Primary Care Provider Unavailable Encounter Details Date Type Department Care Team Description 11/04/2009 Consultation RESULTS P Carri Todd, AuD XXX RESIGNED XXX [address] [facility] [address] [place], [place] [id number] (Wo rk) Social History Tobacco Use Types Packs/Day Years Used Date Smoking Tobacco: Never Alcohol Use Standard Drinks/Week Comments Not Asked 0 (1 standard drink = 0.6 oz pure alcoho l) Sex Assigned at Date Recorded Female 12/20/2018 4:10 PM CDT documented as of this encounter Procedure Notes Giselle Todd - 11/04/2009 9:01 AM CSTAssociated Order(s): CONSULT OTOLARYNGOLOGY (ENT) FINAL AUDIOLOGY OUTPATIENT REPORT BACKGROUND INFORMATION: Yimi Garcia was seen in Audiology 11/04/2009 for concerns with hearing loss and its effects on her communication. She reports a known low-frequency hearing loss bilaterally that began in her left ear and is now perceived in her right ear as well. She also reports tinnitus bilaterally. No vertigo, otalgia or aural fullness reported. TEST RESULTS AND PROCEDURES: Fall Risk Screen: 1. Have you fallen two or more times in the past year? No 2. Have you fallen and had an injury in the past year? No Is patient a fall risk? No Tympanograms showed normal middle ear mobility, pressure and ear volumes bilaterally. Right ipsilateral acoustic reflex present at 95 dB HL. Left ipsilateral acoustic reflex absent. Left contralateralacoustic reflex absent and right contralateral acoustic reflex elevated at 105 dB HL. Air and bone co nduction thresholds were assessed from 250 to 8000 Hz. In the right ear thresholds fell in the mild rising to borderline normal sensorineural hearing loss range. In the left ear thresholds fell in the moderate rising to borderline-normal sensorineural hearing loss range. Excellent word recognition scores of 100% were obtained at 70 dB HL. SUMMARY AND RECOMMENDATIONS: Today's results show mild rising to borderline- normal sensorineural hearing loss in the right ear and a moderate rising to borderline-normal sensorineural hearing loss in the left ear. Ms. Garcia will follow up with Dr. Brewer for medical management. Call [phone] ifthere are questions regarding these results or recommendations. Electronically signed on 11/07/2009 11:55 by ALYCIA ACHARYA MT: say Name: YIMI GARCIA MRN: [id number] Account: [id number] : 1945 Visit Date: 11/04/2009 Sex: F Age: 64 Document: [id number] ER MEAT documented in this encounter Plan of Treatment Upcoming Encounters Date Type Specialty Care Team Description 09/10/2022 Office Visit Internal Medicine Margot Branham MD [address] [id number] (Wo rk) documented as of this encounter Procedures Procedure Name Priority Date/Time Associated Comments Diagnosis ZZ CONSULT 11/04/2009 8:51 AM Results f or this OTOLARYNGOLOGY (ENT) WASHER MEAT procedu re are in the results section. documented in this encounter Results CONSULT OTOLARYNGOLOGY (ENT) (11/04/2009 8:51 AM WASHER MEAT) Transcriptions Giselle Todd - 11/04/2009 9:01 AM WASHER MEAT FINAL AUDIOLOGY OUTPATIENT REPORT BACKGROUND INFORMATION: Yimi Garcia w as seen in Audiology 11/04/2009 for concerns with hearing loss and its effects on her communication. She reports a known low-frequency hearing loss bilaterally that began in her left ear and is now perceived in her rig ht ear as well. She also reports tinnitus bilaterally. No vertigo, otalgia or aural fullness reported. TEST RESULTS AND PROCEDURES: Fall Risk Screen: 1. Have you fallen two or more times in the past year? No 2. Have you fallen and had an injury in the past year? No Is patient a fall risk? No Tympanograms showed normal middle ear m obility, pressure and ear volumes bilaterally. Right ipsilateral acoustic reflex present at 95 dB HL. Left ipsilateral acoustic reflex absent. Left contralateral acoustic reflex absent and right contralateral acoustic reflex elevated at 105 dB HL. Air and bone conduction thresholds were assessed from 250 to 8000 Hz. In the right ear thresholds fell in the mild rising to borderline normal sensorineural hearing loss range. In the left ear thresholds fell in the moderate rising to borderline-normal sensorineural hearing loss range. Excellent word recognition scores of 100% were obtained at 70 dB HL. SUMMARY AND RECOMMENDATIONS: Today's re sults show mild rising to borderline- normal sensorineural hearing loss in the right ear and a moderate rising to borderline-normal sensorineural hearing loss in the left ear. Ms. Garcia will follow up [facility] Dr. Brewer for medical management. Call [phone] if there are questions regarding these results or recommendations. Electronically signed on 11/07/2009 11: 55 by ALYCIA ACHARYA MT: say Name: YIMI GARCIA Account: [id number] : 1945 Visit Date: 11/04/2009 Sex: F Age: 64 Document: [id number] Giselle Schmid REFERRAL documented in this encounter Visit Diagnoses Not on filedocumented in this encounter
--- OUTSIDE RECORDS SUMMARY | 2022-07-30 19:35 | XMS_ITS | Encounter Summary ---
:1945 Author Organization [facility] Address [address] [place] [address]. [place] [address] Care Team Providers Name Role Phone Lisseth Vang MD Primary Care Provider Mehreen Johnston MD PhD Primary Care Provider [phone] Encounter Details Date Type Department Care Team Description 08/09/2009 Office Visit-[facility] Women's Health Yasmeen JeffClarice Alegria MD [address] 1st Floor, Clinic [address]C [address] [place] [address] [place], [place] [phone] (Wo rk) [id number] [phone] Social History Tobacco Use Types Packs/Day Years Used Date Smoking Tobacco: Never Alcohol Use Standard Drinks/Week Comments Not Asked 0 (1 standard drink = 0.6 oz pure alcoho l) Sex Assigned at Date Recorded Female 12/20/2018 4:10 PM CDT documented as of this encounter Progress Notes Yasmeen Lang - 08/09/2009 3:30 PM CST Multimedia Developer: Yasmeen Lang Status: Final Encounter: 09 Aug 2009 Type: U Spec Visit Reason For Visit EMB. Was on hormones-concerned about this, was seem at [facility] had an order for an US would liketo have one done here, hx of polyps, had a bleeding on Jul.12 - . LMP: Menopause age 53 Contraception: NA. 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 She had appt at [facility] who suggested a EMB and u/s- neither of which have been done. She is here for f/u. She has been using HT in the past- patch and daily progesterone- currently has stopped all tx since bleeding. Pain Eval Current history of pain associated [...] this clinic. Needs to have refilled by [facility] MD; Rx Prometrium 100 MG Capsule;TAKE 1 CAPSULE DAILY at bedtime. No further refills from this clinic. Musthave refilled by [facility] MD.; Rx Propoxyphene N-APAP 50-325 MG Tablet;TAKE 1 TABLET 4 TIMES DAILY NEEDED.; Rx Ibuprofen 600 MG Tablet;TAKE 1 TABLET 4 TIMES DAILY WITH MEALS NEEDED.; Rx MIRALAX POWD 3350NF;17 grams tid; Rx AAA-MED RECONCILE;per patient; RPT. Vital Signs Recorded by [employer] on 09 Aug 2009 03:37 PM BP:130/80, LUE, Sitting, HR: 79 b/min, L Radial, Weight: 169.4 lb. Physical Exam Constitutional: no distress, comfortable, pleasant, well nourished Vital signs: Reviewed and normal External Genitalia: normal external genitalia, BSU negative, no lesions, normal hair distribution Urethral Meatus: Normal size, no abnormal discharge or prolapse, no lesion Urethra: No masses, tenderness, or scarring Bladder: No masses, tenderness, or fullness Vagina: normal epithelium, no anterior or posterior wall defects, no lesions, normal muscle tone Cervix: no masses, no lesions or cervical motion tenderness, no bleeding. 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 counseled on risks and benefits of the procedure including diagnostic reason for procedure, pain, infection, minimal risk of uterine perforation. Using a sterile speculum and equipment, the uterine cervix was cleaned with betadine prep. The uterus was unable to be sounded due to stenosis. Tenaculum removed. EBL: minimal Complications: none- unable to perform due to stenosis Pathology:NONE Tolerance of Procedure: Patient tolerated procedure well. Pt was instructed to call if she experiences any heavy bleeding, severe cramping, or abnormal vaginal discharge. May take ibuprofen 400-800 mg PO TID PRN or naproxen 500 mg PO BID for cramping. F/U for re try w/ cytotec 400 mcg buccally prior to procedure. 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 Plan 1. miso rx given 2. f/u sono for eval of endo stripe 3. EMB after miso as above Celso Lang MD. Signature Signed By: Debbie Carter MA; 08/09/2009 3:43 PM COMMISSIONING EDITOR. Signed By: Yasmeen Lang M.D.; 08/09/2009 5:09 PM COMMISSIONING EDITOR. ISSIONING EDITOR documented in this encounter Plan of Treatment Upcoming Encounters Date Type Specialty Care Team Description 09/10/2022 Office Visit Internal Medicine Margot Branham MD [address] [place] [phone] (Wo rk) documented as of this encounter Visit Diagnoses Not on filedocumented in this encounter Care Teams Piece Work Inspector Relationship Specialty Start Date End Date Lisseth Vang MD PCP - General 02/05/11 03/18/[address] [facility] [address] [place], [place] [id number] Mehreen Johnston MD PhD PCP - General Family Practice 03/19/11 11/15/11 (work) documented as of this encounter
--- OUTSIDE RECORDS SUMMARY | 2022-07-30 19:35 | XMS_ITS | Encounter Summary ---
:1945 Author Organization [facility] Address [address] [place] [address]. [place] [address] Care Team Providers Name Role Phone Lisseth Vang MD Primary Care Provider Mehreen Johnston MD PhD Primary Care Provider [phone] Encounter Details Date Type Department Care Team Description 08/23/2009 Office Visit-[facility] Women's Health Yasmeen JeffClarice Alegria MD Building [address] [place] [address] 1st Floor, Clinic [address] [place] [address] [place], [place] [phone] (Wo rk) [address] [phone] Social History Tobacco Use Types Packs/Day Years Used Date Smoking Tobacco: Never Alcohol Use Standard Drinks/Week Comments Not Asked 0 (1 standard drink = 0.6 oz pure alcoho l) Sex Assigned at Date Recorded Female 12/20/2018 4:10 PM CDT documented as of this encounter Progress Notes Yasmeen Lang - 08/23/2009 3:30 PM CST Mine Geologist: Yasmeen Lang Status: Final Encounter: 23 Aug 2009 Type: U Spec Visit Reason For Visit Follow Up US and EMB Contraception: NA. HPI Here for EMB after cytotec. Had PHLEBOTOMIST bleeding after stoppingHT. Had pap at [facility]- I looked at letter from them stating insufficient cervical cells, but + endometrial cells on pap. Tried EMB last time but unable access endometrial cavity due to stenosis. . Pain Eval Current history of pain associated [...] this clinic. Needs to have refilled by [facility] MD; Rx Prometrium 100 MG Capsule;TAKE 1 CAPSULE DAILY at bedtime. No further refills from this clinic. Musthave refilled by [facility] MD.; Rx Ibuprofen 600 MG Tablet;TAKE 1 TABLET 4 TIMES DAILY WITH MEALS NEEDED.; Rx MIRALAX POWD 3350NF;17 grams tid; Rx Magnesium 300 MG Capsule;; RPT Misoprostol 200 MCG Tablet;TAKE [address] tablets between cheek and gum30 minutes prior to procedure in clinic, allow to dissolve.; Rx AAA-MED RECONCILE;per patient; RPT B Complex 1 Tablet;; RPT Astragalus CAPS;; RPT. Vital Signs Recorded by [employer] on 23 Aug 2009 03:40 PM BP:151/83, LUE, Sitting, Weight: 171.6 lb. Procedures Endometrial Biopsy Time Out - Pause for the Cause Just before the procedure begins, through verbal and active participation of team members, verify: Initials Patient Name Procedure to be performed EMB Indication: Endometrial cells on cervical cytology after age 40 and not close to menses Faculty: Rickey test: not done because patient postmenopausal Consent:Pt. counseled on risks and benefits of the procedure including diagnostic reason for procedure, pain, infection, minimal risk of uterine perforation. Risks, benefits of treatment, and no treatment were discussed. Patient's questions were elicited and answered. Using a sterile speculum and equipment, the uterine cervix was cleaned with betadine prep. The uterus was sounded to 7 cm. The pipelle apparatus was prepared and introduced into the cervix without significant resistance and a sample was collected. EBL: minimal Complications: none Pathology:EMB sample sent to pathology- very minimal tissue collected Tolerance of Procedure: Patient tolerated procedure well- but very uncomfortable during procedure. Pt was instructed to call if she experiences any heavy bleeding, severe cramping, or abnormal vaginal discharge. May take ibuprofen 400-800 mg PO TID PRN or naproxen 500 mg PO BID for cramping. . Assessment 64 yo PHLEBOTOMIST female w/ PHLEBOTOMIST bleeding and endometrial cells on pap. U/S showed 2.3 mm EM stripe. Plan 1. EMB today- likely insufficient tissue 2. Pap today as well 3. will call w rsult. Likely insufficient cells. If so, will need to go to OR for D and C. Signature Signed By: Debbie Carter MA; 08/23/2009 3:41 PM MILLER ROD MILL. Signed By: Yasmeen Lang M.D.; 08/23/2009 4:25 PM MILLER ROD MILL. ER ROD MILL documented in this encounter Plan of Treatment Upcoming Encounters Date Type Specialty Care Team Description 09/10/2022 Office Visit Internal Medicine Margot Branham MD [address] [phone] (Wo rk) documented as of this encounter Visit Diagnoses Not on filedocumented in this encounter Care Teams Community Development Specialist Relationship Specialty Start Date End Date Lisseth Vang MD PCP - General 02/05/11 03/18/[address] [facility] [address] [place], [place] [address] Mehreen Johnston MD PhD PCP - General Family Practice 03/19/11 11/15/11 documented as of this encounter
--- OUTSIDE RECORDS SUMMARY | 2022-07-30 19:35 | XMS_ITS | Encounter Summary ---
:1945 Author Organization [facility] Address [address] [place] [address] Care Team Providers Name Role Phone Unavailable Primary Care Provider Unavailable Encounter Details Date Type Department Care Team Description 11/18/2009 Historic Results INTERFACED REPORT Anh Costa AP RN CRACK OFF PERSON Social History Tobacco Use Types Packs/Day Years Used Date Smoking Tobacco: Never Alcohol Use Standard Drinks/Week Comments Not Asked 0 (1 standard drink = 0.6 oz pure alcoho l) Sex Assigned at Date Recorded Female 12/20/2018 4:10 PM CDT documented as of this encounter Plan of Treatment Upcoming Encounters Date Type Specialty Care Team Description 09/10/2022 Office Visit Internal Medicine LogMargot sadler MD [address] [place] [phone] (Wo rk) documented as of this encounter Procedures Procedure Name Priority Date/Time Associated Comments Diagnosis N TERMINAL PRO BNP Routine 11/18/2009 10:00 Resul ts for this OUTPATIENT AM STARCH MANGLE TENDER procedure are i n the results section. ALBUMIN RANDOM URINE Routine 11/18/2009 10:00 Res ults for this QUANTITATIVE AM STARCH MANGLE TENDER procedure are i n the results section. LIPID REFLEX TO Routine 11/18/2009 10:00 Results for this DIRECT LDL PANEL AM STARCH MANGLE TENDER procedure a re in the results section. CRP CARDIAC RISK Routine 11/18/2009 10:00 Results for this AM STARCH MANGLE TENDER procedure are i n the results section. AST Routine 11/18/2009 10:00 Results for this AM STARCH MANGLE TENDER procedure are i n the results section. ALT Routine 11/18/2009 10:00 Results for this AM STARCH MANGLE TENDER procedure are i n the results section. documented in this encounter Results ALT (11/18/2009 10:00 AM STARCH MANGLE TENDER) P athologist Signature ALT 22 0 - 50 U/L MISYS Specimen Anatomical Collection Method Collection Time Receive d Time (Source) Location / / Volume Laterality 11/18/2009 10:00 11/18/2009 AM STARCH MANGLE TENDER 10:24 AM STARCH MANGLE TENDER Anh Costa APRN CRACK OFF PERSON LAB - BLOOD ORDERABLES Performing Organization Address City/[facility]/ZIP Code Phon e Number MISYS AST (11/18/2009 10:00 AM STARCH MANGLE TENDER) P athologist Signature AST 31 0 - 45 U/L MISYS Specimen Anatomical Collection Method Collection Time Receive d Time (Source) Location / / Volume Laterality 11/18/2009 10:00 11/18/2009 AM STARCH MANGLE TENDER 10:24 AM STARCH MANGLE TENDER Anh Moranaparna Costa APRN CRACK OFF PERSON LAB - BLOOD ORDERABLES Performing Organization Address City/[facility] Code Phon e Number MISYS Lipid panel reflex to direct LDL (11/18/2009 10:00 AM STARCH MANGLE TENDER) [facility] gist Method Time Signature Cholesterol Duplicate 0 - 200 MISYS request mg/dL Comment: PER MD COSTA 722 CORRECTED ON 11/18 AT 1627: PREVIOUSLY R EPORTED 227 LDL Cholesterol is the primary guide to therapy. ?? The NCEP r ecommends further evaluation of: patients with cholesterol <200 mg/dL if addition al risk factors are present, cholesterol >240 mg/dL, triglycerides >150 mg/dL, o r HDL <40 mg/dL. Triglycerides Duplicate request 0 - 150 mg/dL MISY S Comment: PER MD COSTA 722 CORRECTED ON 11/18 AT 1627: PREVIOUSLY R EPORTED 170 HDL Cholesterol Duplicate request 50 - 110 mg/dL M ISYS Comment: PER MD COSTA 722 CORRECTED ON 11/18 AT 1627: PREVIOUSLY R EPORTED 64 LDL Cholesterol Calculated Duplicate request 0 - 129 mg/dL MISYS Comment: PER MD COSTA 72Anya CORRECTED ON 11/18 AT 1627: PREVIOUSLY R EPORTED 129 LDL Cholesterol is the primary guide to therapy: LDL cholester ol goal in high risk patients is <100 mg/dL and in very high risk patients is <70 mg/dL. VLDL-Cholesterol Duplicate request 0 - 30 mg/dL [place] SYS Comment: PER MD COSTA 722 CORRECTED ON 11/18 AT 1627: PREVIOUSLY R EPORTED 34 Cholesterol/HDL Ratio Duplicate request 0.0 - 5.0 MISYS Comment: PER MD COSTA 722 CORRECTED ON 11/18 AT 1627: PREVIOUSLY R EPORTED 3.6 Specimen Anatomical Collection Method Collection Time Receive d Time (Source) Location / / Volume Laterality 11/18/2009 10:00 11/18/2009 AM STARCH MANGLE TENDER 10:24 AM STARCH MANGLE TENDER Anh Costa APRN, CNP LAB - BLOOD ORDERABLES Performing Organization Address City/State/ZIP Code Phon e Number MISYS CRP cardiac risk (11/18/2009 10:00 AM STARCH MANGLE TENDER) athologist Signature CRP Cardiac 5.9 mg/L MISYS Risk Comment: Reference Values: Low Risk: ? <1.0 mg/L Average Risk: ? 1.0-3.0 mg/L High Risk: ?>3.0 mg/L Acute Inflammation: >8.0 mg/L Specimen Anatomical Collection Method Collection Time Receive d Time (Source) Location / / Volume Laterality 11/18/2009 10:00 11/18/2009 AM STARCH MANGLE TENDER 10:24 AM STARCH MANGLE TENDER Anh Costa APRN, CNP LAB - BLOOD ORDERABLES Performing Organization Address City/[facility]/ZIP Code Phon e Number MISYS N terminal pro BNP outpatient (11/18/2009 10:00 AM STARCH MANGLE TENDER) athologist Signature N-Terminal Pro 72 0 - 125 MISYS Bnp pg/mL Specimen Anatomical Collection Method Collection Time Receive d Time (Source) Location / / Volume Laterality 11/18/2009 10:00 11/18/2009 AM STARCH MANGLE TENDER 10:24 AM STARCH MANGLE TENDER Anh Costa APRN, CNP LAB - BLOOD ORDERABLES Performing Organization Address City/State/ZIP Code Phon e Number MISYS Microalbumin quantitative random urine (11/18/2009 10:00 AM STARCH MANGLE TENDER) Patholo gist Method Time Signature Creatinine 180 mg/dL MISYS Urine Albumin Urine <2 mg/L MISYS mg/L Albumin Urine Unable to 0 - 20 MISYS mg/g Cr calculate mg/g Cr Specimen Anatomical Collection Method Collection Time Receive d Time (Source) Location / / Volume Laterality 11/18/2009 10:00 11/18/2009 AM STARCH MANGLE TENDER 10:24 AM STARCH MANGLE TENDER Anh Costa APRN, CNP LAB - URINE ORDERABLES Performing Organization Address City/State/ZIP Code Phon e Number MISYS documented in this encounter Visit Diagnoses Not on filedocumented in this encounter
--- OUTSIDE RECORDS SUMMARY | 2022-07-30 19:35 | XMS_ITS | Encounter Summary ---
:1945 Author Organization [facility] Address [address] [place] [address]. [place] [address] Care Team Providers Name Role Phone Unavailable Primary Care Provider Unavailable Encounter Details Date Type Department Care Team Description 10/03/2009 Office Visit-[facility] Women's Health Mehreen Green Phillips-Wangensteen MD PhD Building [address] [place] [address] 1st Floor, Clinic [address] [place] [address] (Wo rk) [id number] [phone] Social History Tobacco Use Types Packs/Day Years Used Date Smoking Tobacco: Never Alcohol Use Standard Drinks/Week Comments Not Asked 0 (1 standard drink = 0.6 oz pure alcoho l) Sex Assigned at Date Recorded Female 12/20/2018 4:10 PM CDT documented as of this encounter Progress Notes Mehreen Johnston - 10/03/2009 10:20 AM CST Guest Services Agent: Mehreen Johnston Status: Final Encounter: 03 Oct 2009 Type: [facility] Visit Reason For Visit YIMI GARCIA is here for annual visit Do you have any other appointments, tests or procedures within the [facility] system for this same day? Yes. Pain Eval Current history of pain associated with this visit is denied. Personal Hx Behavioral history: Daily coffee consumption. No tobacco use. Alcohol: Wine consumption. Drug use: Not using drugs. Habits: Good exercise habits. Home environment: No secondhand tobacco smoke in home. Abuse / neglect: No abuse/neglect at home. Allergies Codeine Derivatives Morphine Derivatives. Latex Allergy: No. Current Meds Multivitamins Capsule;TAKE 1 CAPSULE DAILY.; RPT Glucosamine Chondroitin Complx CAPS;TAKE 1 CAPSULE EVERY 12 HOURS; RPT Calcium + D TABS;TAKE 1 TABLET EVERY 12 HOURS; RPT MIRALAX POWD 3350NF;17 grams tid; Rx Magnesium 300 MG Capsule;; RPT B Complex 1 Tablet;; RPT Astragalus CAPS;; RPT Young Harris 3 CAPS;TAKE DIRECTED.; RPT AAA-MED RECONCILE;Medications reviewed with the patient.; RPT. Med list offered and patient declined. Vital Signs Recorded by Beth Galicia on 03 Oct 2009 10:42 AM BP:134/78, LUE, Sitting, HR: 65 b/min, Height: 66.75 in, Weight: 168 lb, BMI: 26.5 kg/m2, Pain Scale: 0. Performance Status GRADE : KARNOFSKY SCALE : PERFORMANCE 0 : 90 & 100 : Fully Active Initial: GO 10/03/2009. Orders Administered: H1N1 Influenza Split Inj; 0.5; Intramuscular; Left Deltoid; Admin By: Denise Anderson; 03 Oct 2009. Signature Signed By: Mehreen Johnston M.D.,PhD; 10/03/2009 12:25 PM CONSUMER INSIGHT MANAGER. UMER INSIGHT MANAGER Mehreen Johnston - 10/03/2009 10:20 AM CST Guest Services Agent: Mehreen Johnston Status: Final - Signature Encounter: 03 Oct 2009 Type: [facility] Visit Family [facility] Department of Family Medicine [place] Mail Code [address] [place] [address] Office: [phone] Women???[facility] First Floor, Clinic [address] [place] [address] Phone:\[phone] Fax:\[phone] RE: Yimi Garcia : 1945 MUSA: 10/03/2009 OUTPATIENT VISIT NOTE REASON FOR VISIT: Annual exam. HISTORY OF PRESENT ILLNESS: This is a 64-year-old 1 para 1001 female. She recently had a Pap/pelvic August 2009; her Pap smear was normal. She had been on hormones from her mid-50s until 2002. She became postmenopausal around the mid-50s, was put on hormone patches and then stopped them [id number] to 2005. Then in 2005 she restarted [...] fragments, no evidence of malignancy. The transvaginal ul trasound showed myomas, one which was new. She does have some questions today about whether those should be removed. She is not having any constipation. She did have an urine infection this past fall. She currently is not sexually active. She does not have any vaginal itching, burning or discharge. As mentioned, she recently had a pelvic. She was having hot flashes and saw Dr. Gallo the end of August. She was given black cohosh but she got dry heaves from it and therefore she stopped it. She is interested in doing something for the hot flashes since they keep her awake at night. She has not tried soy and is not interested in that because of some things she has read on the internet. She had a mammogram in fall 2008. She has had a previous breast reduction. There is no family history of breast cancer. She had a DEXA scan about two years ago at [facility] which is not in the record. She does take calcium 1200 mg in divided doses daily. She takes vitamin D3 1000 international units a day. She has been exercising, walking, more sporadic over the last year. She has not had a recent vitamin D level. She recently was evaluated at the [facility] for cardiac risk. She had a lipid panel which showed an LDL of 121, HDL 65, triglycerides 111. She does not have a significant history of cardiac disease in the family, according to her. She is a nonsmoker. PAST SURGICAL HISTORY: 1. 1978. Right hip replacement, September 2007. Breast reduction, 1996. Laparoscopic Matias procedure, 1989. Left vein stripping, left leg. HABITS: Occasional wine, two glasses a month. Nonsmoker. Wears seatbelts. Feels safe in her environment. Exercise is walking but has been more sporadic recently. IMMUNIZATIONS: Her tetanus shot was in 2005. She has had a flu shot. She wants the H1N1. She had theshingles shot at [facility] September 23, 2009. MEDICATIONS: She is on MiraLax 17 mg t.i.d., multivitamin 1 daily, omega-3 daily, glucosamine 1 capsule b.i.d., calcium 1200 mg in divided doses daily, vitamin D3 1000 international units a day, B complex and astragalus capsules. ALLERGIES: Codeine and morphine (sick to stomach). [...] son. 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 REVIEW OF SYSTEMS: She has night sweats and hot flashes. No visual problems, no double vision. No hair loss. Does have ringing in her ears. Nasal congestion and stuffiness. She has been seeing ENT for nasal ablation which is scheduled soon. Does have high blood pressure. Gets occasional palpitations at night. Has recently been evaluated at the [facility] for cardiac risk. Had a recent cholesterol done. No cough, wheezing or shortness of breath. No history of asthma. No nausea, vomiting or heartburn. Had a colonoscopy in 2006, no polyps; was told she would be due again in three years which is next summer. Has some incontinence. Has had an urinary infection fall 2008. No history of kidney stone s. Currently no dysuria, hematuria or frequency. Is not sexually active as mentioned. Does have muscle weakness and cramps, especially in the right leg following her hip replacement 2006 and is gettingphysical therapy still for this. Has some lesions on the back which she wanted me to look at. Does use sunscreen. Does have a history of seborrheic keratosis. No headaches, blackout spells, or dizziness. No history of anxiety or depression. Does have a history of an enlarged thyroid, she has been toldthis in the past. No temperature intolerance or weight loss or gain. 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 EXAMINATION: Pleasant older woman in no acute distress. Blood pressure is 134/78. Heart rate is 65. Height is 66.75 inches. Weight is 168. BMI is 26.5. Skin: She has multiple seborrheic keratoses on her back, scattered, small, light brown. Pupils are equal and reactive to light. Arterials are mildly narrowed. Ears are clear with diminished light reflex. Oropharynx: Teeth in good condition. Mucous membranes are moist. No lesions. Posterior pharynx: No drainage. Neck is supple with no palpable thyroidand it does not appear that she has fullness and there is no tenderness, no carotid bruit, no masses. Her lungs are clear throughout with no wheezes or rhonchi, no rales. Her breasts show scars from the reduction, well-healed, breast are firm, no discrete masses, no axillary nodes. No supraclavicular nodes. Her heart is regular, rate is 72 with no appreciable murmur, no click, no gallop. Abdomen has a midline well-healed scar from her , good bowel sounds, soft without organomegaly, no masses . No tenderness. Femoral pulses are 2+ and equal. No inguinal adenopathy. Pelvic was not done since it was recently done. Her extremities have some dilated venules on the lower left medial ankle, calf and lower part of the legs have some dilated varicosities. Pedal pulses are 2+ and equal in the feet,no pedal edema. Cranial nerves are intact. Motor strength of the upper and lower extremities is equal, 5+/5+ bilaterally. Reflexes are 2+/4+ and equal bilaterally in the upper and lower extremities. ASSESSMENT AND PLAN: 1. Well adult. The patient was recently evaluated at the [facility] so we will not order another lipids. We will get a basic metabolic panel, hemoglobin. We will check urine since she has had recent UTI. I am recommending another DEXA scan. We will give her an H1N1 flu shot. Her mammogram has been done. Pap smear was done in August. We talked about exercise. We talked about coming back for anosteoporosis visit after her DEXA scan is done. We will also screen her for thyroid disease. Venous insufficiency. She does have some dilated varicose veins. She has used prescription support panty hose which are five years old. She has put on weight so they are now uncomfortable; she is asking for a new pair. I did give her a prescription order for this at [facility]. Menopausal. She is having significant symptoms. We spent time talking about different options. She does not want to be on estrogen. I mentioned gabapentin 100 mg at bedtime, to titrate up to 500 mg very slowly, one week at a time, or could try Effexor 37.5 mg daily. Also, she should be on omega-3 fatty acids 2 mg a day. She is doing that. She did take the information. She decided she would think about it. I told her to get back with me if she wanted to start on the gabapentin. We will also check hervitamin D level. Previous history of urinary infection. She had an infection this fall. Currently does not have any symptoms. We will recheck an UA. Strong family history of colon cancer. Under surveillance. Last colonoscopy was in 2006; due again summer 2009 according to her. I will see her back again in about three months, after her DEXA scan, for an osteoporosis consult. Iwill get back with her on these current tests. Mehreen Johnston MD, PhD pantographer [facility] [phone] or [phone] SA:11 Electronically signed by:Mehreen Johnston M.D.,PhD Oct 08 2009 11:39PM CONSUMER INSIGHT MANAGER UMER INSIGHT MANAGER documented in this encounter Plan of Treatment Upcoming Encounters Date Type Specialty Care Team Description 09/10/2022 Office Visit Internal Medicine Margot Branham MD [address] [place] [id number] (Wo rk) documented as of this encounter Visit Diagnoses Not on filedocumented in this encounter
--- OUTSIDE RECORDS SUMMARY | 2022-07-30 19:35 | XMS_ITS | Encounter Summary ---
:1945 Author Organization [facility] Address [address] [place] [address] Care Team Providers Name Role Phone Unavailable Primary Care Provider Unavailable Encounter Details Date Type Department Care Team Description 03/24/2010 Office Visit-[facility] Colon and Rectal Surgery Fauzia Hamilton MD Phillips Wangensteen [address] [facility] Building [address] 1st Floor, Clinic [address] [place] [address] Social History Tobacco Use Types Packs/Day Years Used Date Smoking Tobacco: Never Alcohol Use Standard Drinks/Week Comments Not Asked 0 (1 standard drink = 0.6 oz pure alcoho l) Sex Assigned at Date Recorded Female 12/20/2018 4:10 PM CDT documented as of this encounter Progress Notes Theresa Hamilton - 03/24/2010 8:15 AM CDT Sanforizing Machine Operator: Theresa Hamilton Status: Final - Signature Encounter: 24 Mar 2010 Type: Colon Rectal Visit Colon & Rectal Surgery Clinic Department of Surgery [place] Mail Code [address] [facility] [place] [address] [facility] First Floor, Clinic [address] [place] [address] RE: Ramona Sheikh : 1945 MUSA: 03/24/2010 OUTPATIENT VISIT NOTE This is a followup visit for Ms. Sheikh. She is a 64-year-old female who I last saw in July 2009. She primarily had symptoms of perianal discomfort. She underwent a banding for her internal hemorrhoids. She had prolapse of tissue and occasional bleeding associated with bowel movements. She did have colonoscopy in 2006. The patient reports that overall her hemorrhoid symptoms have been better. She has had no bleeding and this improved significantly after having the banding. She does have an area of skin tags, primarily anteriorly. She states that she believes these skin tags have caused her issues with hygiene and occasionally she will have leakage of liquid stool. It is unclear talking to her further whether her diarrhea contributes somewhat to this. She does take MiraLax, as well as being on magnesium. The MiraLax is one capful per day and she is up to 800 mg of magnesium daily. Because of this, she does have soft bowel movements, several daily. She has been using Balneol as well to take care of her perianal skin. 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 She is due for a colonoscopy. On physical examination, the patient is well-appearing and in no acute distress. Perianal examination demonstrates a small anterior tag and some ridging along the right anterior aspect of the perineum.There is no excoriation. Digital rectal examination with good tone. No palpable masses. Anoscopy revealed minimal hemorrhoidal disease. Impression and plan: 1. This is a 64-year-old woman with some minimal ongoing perineal symptoms. The patient has a familyhistory of colorectal cancer, as well as a long-standing history of constipation. Most likely the MiraLax is making her bowel movements too soft and she is having a minimal amount of leakage. he patient will come down on the MiraLax, down to a half capful per day and possibly stop it, and also try fiber supplementation. 2. The patient is due for colonoscopy. We have scheduled her for this. The patient will follow up with me for colonoscopy and she will try these dietary and medication changes to see if this helps her. 3. Skin tag. I have reassured the patient that her anterior skin tag is small and that this is not the cause of her symptoms. Theresa Hamilton M.D. Math And Science Division Chair Division of Colon and Rectal Surgery Department of Surgery Total time with the patient was 15 minutes, over half of it was spent counseling the patient. [id number] cc: Lisseth Estes M.D. [facility] [place] [facility] [address] [place] [address] DD 03/24/2010 Electronically signed by:Theresa Hamilton M.D. Mar 28 2010 6:33AM ELECTRONIC IMAGING SYSTEM OPERATOR Author documented in this encounter Plan of Treatment Upcoming Encounters Date Type Specialty Care Team Description 09/10/2022 Office Visit Internal Medicine LogeaMargot man MD [address] [place] [phone] (Wo rk) documented as of this encounter Visit Diagnoses Not on filedocumented in this encounter
--- OUTSIDE RECORDS SUMMARY | 2022-07-30 19:35 | XMS_ITS | Encounter Summary ---
:1945 Author Organization [facility] Address [address] [place] [address]. [place] [address] Care Team Providers Name Role Phone Unavailable Primary Care Provider Unavailable Encounter Details Date Type Department Care Team Description 08/26/2009 Office Visit-P INTERFACE P DEPT Gema Gallo [place] [address] (Wo rk) Social History Tobacco Use Types Packs/Day Years Used Date Smoking Tobacco: Never Alcohol Use Standard Drinks/Week Comments Not Asked 0 (1 standard drink = 0.6 oz pure alcoho l) Sex Assigned at Date Recorded Female 12/20/2018 4:10 PM CDT documented as of this encounter Progress Notes Eri Gallo S - 08/26/2009 4:30 PM CST Director Business Travel: Eri Gallo Status: Unsigned Encounter: 26 Aug 2009 Type: [facility] P[facility] SORTER Visit This patient is a 64 yo P1001 who is here with questions about how to manage night sweats and insomnia since she recently stopped her vivelle/prometrium. She stopped it because she had an episode of post menopausal bleeding from 07/12 - 07/25. She had had polyps many years ago. She was seen at the [facility] who recommended an ultrasound and an endometrial biopsy. She had been on premrpo and then climara in her 40's but had stopped them til 3 years ago when, because of the above symptoms, Dr. Simpson restarted her on vivelle and prometrium. She had an endometrial biopsy with scant tissue obtained on 08/23 but the results are not yet back. She requests a look at her lab results over the years, including abnormal CRP and an elevated total cholesterol with the rest of the lipid panel being normal. She has a benign essential tremor and was told to try a drug that was for high BP for it ( ? inderal?), but she never did. She has also had an evaluation by the [facility]. She requests something mild to help her sleep. She cannot take melatonin because it gives her nightmares. BP:140/78, LUE, Sitting, HR: 64 b/min, Height: 67.0 in, Weight: 172.4 lb, BMI: 27 kg/m2, Pain Scale: 0. IMP: Menopausal symptoms Borderline blood pressure Essential tremor Possible increased cardiac risk Plan: Try black navdeeposh Go back to see Anh Costa and her truck trailer mechanic, Dr. Vang, to address the above issues. 100 % of this 30 minute visit was spent in coordinating her care. D MECHANICAL METER TESTER Eri Gallo - 08/26/2009 4:30 PM CST Director Business Travel: Eri Gallo Status: Final Encounter: 26 Aug 2009 Type: [facility] Visit Reason For Visit YIMI GARCIA is a 64 year old female who presents today for numerous concerns. Patient wants to talk about high blood pressure, waking up in the middle of the night, wants to talk about results of biopsy taken last Wednesday, would like to have her cholesterol checked as well. Do you have any other appointments, tests or procedures within the [facility] system for this same day? No. Pain Eval Current history of pain associated with this visit is denied. Personal Hx Behavioral history: No tobacco use. Alcohol: Not using alcohol. Drug use: Not using drugs. Home environment: No secondhand tobacco smoke in home. Allergies Codeine Derivatives Morphine Derivatives. Latex [...] this clinic. Needs to have refilled by [facility] MD; Rx Prometrium 100 MG Capsule;TAKE 1 CAPSULE DAILY at bedtime. No further refills from this clinic. Musthave refilled by [facility] .; Rx Ibuprofen 600 MG Tablet;TAKE 1 TABLET 4 TIMES DAILY WITH MEALS NEEDED.; Rx MIRALAX POWD 3350NF;17 grams tid; Rx Magnesium 300 MG Capsule;; RPT Misoprostol 200 MCG Tablet;TAKE [address] tablets between cheek and gum30 minutes prior to procedure in clinic, allow to dissolve.; Rx AAA-MED RECONCILE;per patient; RPT B Complex 1 Tablet;; RPT Astragalus CAPS;; RPT. Med list offered and patient declined. Vital Signs Recorded by [id number] on 26 Aug 2009 05:13 PM BP:140/78, LUE, Sitting, HR: 64 b/min, Height: 67.0 in, Weight: 172.4 lb, BMI: 27 kg/m2, Pain Scale: 0. Performance Status GRADE : KARNOFSKY SCALE : PERFORMANCE 0 : 90 & 100 : Fully Active Initial: GENTRY RICKETTS 08/26/2009. Signature Signed By: Eri Gallo M.D.; 08/26/2009 5:14 PM FIELD MECHANICAL METER TESTER. D MECHANICAL METER TESTER documented in this encounter Plan of Treatment Upcoming Encounters Date Type Specialty Care Team Description 09/10/2022 Office Visit Internal Medicine Margot Branham MD [address] [place] [phone] (Wo rk) documented as of this encounter Visit Diagnoses Not on filedocumented in this encounter
--- OUTSIDE RECORDS SUMMARY | 2022-07-30 19:35 | XMS_ITS | Encounter Summary ---
:1945 Author Organization [facility] Address [address] [place] [address]. [place] [address] Care Team Providers Name Role Phone Unavailable Primary Care Provider Unavailable Encounter Details Date Type Department Care Team Description 10/02/2009 Office Visit-[facility] INTERFACE [facility] DEPT Provider, [facility] Nurs e Social History Tobacco Use Types Packs/Day Years Used Date Smoking Tobacco: Never Alcohol Use Standard Drinks/Week Comments Not Asked 0 (1 standard drink = 0.6 oz pure alcoho l) Sex Assigned at Date Recorded Female 12/20/2018 4:10 PM CDT documented as of this encounter Progress Notes Provider, [facility] Nurse - 10/02/2009 10:20 AM CST Acting Instructor: Michelle Margot Status: Final Encounter: 02 Oct 2009 Type: Nurse Note Notes Dr. Brewer received letter from patient requesting f/u appointment for further nasal coblation. I left a voice message for Ramona asking her to call back to discuss appointment availability. Will await a return call from Ramona. We will need to obtain coblator from OR for date of visit. Signature Signed By: Margot Martinez R.N.,BSN; 10/02/2009 12:03 PM POLICE CAPTAIN PRECINCT; Author. documented in this encounter Plan of Treatment Upcoming Encounters Date Type Specialty Care Team Description 09/10/2022 Office Visit Internal Medicine Margot Branham MD [address] [place] [phone] (Wo rk) documented as of this encounter Visit Diagnoses Not on filedocumented in this encounter
--- OUTSIDE RECORDS SUMMARY | 2022-07-30 19:35 | XMS_ITS | Encounter Summary ---
:1945 Author Organization [facility] Address [address] [place] [address]. [place] [address] Care Team Providers Name Role Phone Unavailable Primary Care Provider Unavailable Encounter Details Date Type Department Care Team Description 10/03/2009 Office Visit-[facility] Women's Health Lisseth Rocha Phillips-Wangensteen MD [address] 1st Floor, Clinic [address] [place], [place] [phone] (Wo rk) Social History Tobacco Use Types Packs/Day Years Used Date Smoking Tobacco: Never Alcohol Use Standard Drinks/Week Comments Not Asked 0 (1 standard drink = 0.6 oz pure alcoho l) Sex Assigned at Date Recorded Female 12/20/2018 4:10 PM CDT documented as of this encounter Progress Notes Lissteh Vang - 10/03/2009 12:20 PM CST Cotton Ginner Helper: Lisseth Vang Status: Final Encounter: 03 Oct 2009 Type: [facility] Visit Reason For Visit YIMI GARCIA is a 64 year old female who presents today to talk to Dr. Vang about her diet andsupplements. Doesn't think she could eliminate wheat in her diet. Wants to lose weight and will try the Playrcart as that was helpful in the past. Will consider topical vaginal estrogen for vulva andvaginal atrophy if needed. She has vasomotor symptom (nightsweats) since stopping her hormones but wants to see what happens to her symptoms over the next couple of months. Also is wanting her uterus removed because of the fibroids found on US. She Talked with Dr. aLng about this and she did not think it was necessary. ROS General: night sweats. Wants to lose weight Head/eyes: none Ears/Nose/Throat: none Cardiovascular: none Respiratory: none Gastrointestinal: none Genitourinary: irritation - uterine fibroids Sexual Function: vaginal dryness Mental Health: worries Endocrine: negative. Pain Eval Current history of pain associated with this visit is denied. PMH 1) 1 para 1 status post in 1978. Worries about uterine fibroids - wanting them removed. Not on hormone therapy - stopped vivelle [...] yet. 6) Tight vaginal band - vaginismus Past Surgical history : Hip replacement 09/09 HCM: MAMMOGRAM today, Colonoscopy 07 every 5 years. Immunization Up to date. Family Hx FAMILY HISTORY: Her mother remains alive at 90 with OA of her knees. Personal Hx Behavioral history: No tobacco use. Alcohol: Alcohol use. Drug use: Not using drugs. Home environment: No secondhand tobacco smoke in home. Mother in April 2009 (colon cancer). Allergies Codeine Derivatives Morphine Derivatives. Latex Allergy: No. Current Meds Multivitamins Capsule;TAKE 1 CAPSULE DAILY.; RPT Glucosamine Chondroitin Complx CAPS;TAKE 1 CAPSULE EVERY 12 HOURS; RPT Calcium + D TABS;TAKE 1 TABLET EVERY 12 HOURS; RPT HydrOXYzine HCl 25 MG Tablet;TAKE 1 TABLET 4 TIMES DAILY NEEDED.; Rx Astelin 137 MCG/SPRAY Solution;USE DIRECTED.; Rx Proctofoam HC 1-1 % Foam;USE DIRECTED.; Rx Ibuprofen 600 MG Tablet;TAKE 1 TABLET 4 TIMES DAILY WITH MEALS NEEDED.; Rx MIRALAX POWD 3350NF;17 grams tid; Rx Magnesium 300 MG Capsule;; RPT Misoprostol 200 MCG Tablet;TAKE [address] tablets between cheek and gum30 minutes prior to procedure in clinic, allow to dissolve.; Rx B Complex 1 Tablet;; RPT Astragalus CAPS;; RPT Kellerton 3 CAPS;TAKE DIRECTED.; RPT Estring 2 MG Ring;INSERT 1 APPLICATOR DIRECTED DIRECTED Change every 90 days. No further refills until seen in clinic.; Rx AAA-MED RECONCILE;Medications reviewed with the patient.; RPT. Med list offered and patient declined. Vital Signs Recorded by on 03 Oct 2009 12:08 PM BP:134/78, LUE, Sitting, HR: 65 b/min, Height: 66.75 in, Weight: 168.0 lb, BMI: 26.5 kg/m2, Pain Scale: 0. Performance Status GRADE : KARNOFSKY SCALE : PERFORMANCE 0 : 90 & 100 : Fully Active Initial: GENTRY RICKETTS 10/03/2009. Physical Exam Constitutional: Well appearing woman in no distress, Psychological: appropriate mood Eyes: anicteric, normal extra-ocular movements Musculoskeletal: full range of motion, no edema Skin: no concerning lesions, no jaundice Neurological: normal gait, no tremor WHC time: 25 minutes was spent in direct contact with the patient with greater than 90% in patient education and coordination of care. Assessment 1) Uterine fibroid's (small) 2) Menopausal with vasomotor symptoms, night sweats 3) Vaginal atrophy 4) Integrated approach to health with lifestyle management. Plan 1) Consider a consult with Dr. Robertson for urethra repair and hysterotomy (fibroid's). 2) Continue with EFA 2 gms a day. Vitamin D 1000 IU, Calcium/Mag 1200/600 and glucosamine 1000 mg. 3) Try the mercedita diet for weight management - goal weight is 159 (BMI 25) 4) Soy in moderation 5) Exercise regularly - walking and yoga (community location) 6) Discussed at length dietary options and supplements 7) Encouraged establishing a routine for lunches at school. Signature Signed By: Lisseth Vang M.D.; 10/03/2009 2:47 PM STILL TENDER. L TENDER documented in this encounter Plan of Treatment Upcoming Encounters Date Type Specialty Care Team Description 09/10/2022 Office Visit Internal Medicine Logeais, MD Margot [address] [place] [phone] (Wo rk) documented as of this encounter Visit Diagnoses Not on filedocumented in this encounter
--- OUTSIDE RECORDS SUMMARY | 2022-07-30 19:35 | XMS_ITS | Encounter Summary ---
:1945 Author Organization [facility] Address [address] [place] [address]. [place] [address] Care Team Providers Name Role Phone Unavailable Primary Care Provider Unavailable Encounter Details Date Type Department Care Team Description 11/07/2009 Office Visit-[facility] Anh Ascencio MD [address] [facility] [address] [place], [place] [id number] (Wo rk) Social History Tobacco Use Types Packs/Day Years Used Date Smoking Tobacco: Never Alcohol Use Standard Drinks/Week Comments Not Asked 0 (1 standard drink = 0.6 oz pure alcoho l) Sex Assigned at Date Recorded Female 12/20/2018 4:10 PM CDT documented as of this encounter Progress Notes Anh Ascencio - 11/07/2009 5:30 PM CST Heeler Machine: Anh Ascencio Status: Final - Signature Encounter: 07 Nov 2009 Type: DXA SCAN Conclusions: Patient: Ramona Sheikh DOScan: 11/07/2009 Based on the lowest and valid T-score of -1.7 at the level of the left total hip according to WHO criteria for postmenopausal females and men age 50 and over (see Ref. #1), this individual has LOW bonedensity . (see Ref. #4) The risk of osteoporotic fracture increases approximately 2-fold for each 1.0 SD decrease in T-score. Low bone density is not the only risk factor for fracture; other factors toconsider would include patient's age, risk of falling, risk of injury, previous osteoporotic fracture, family history of osteoporosis, etc. Note the wide range in BMD values and T- scores within the lumbar spine (L1 - 1.5, L4 -0.1). This pattern suggests degenerative joint disease or occult fractures at the lumbar level that would limit thedetection of low bone density in the L1 - L4 spine region. The lumbar spine is therefore representedby L1-L2. Taking into account the precision errors for this center, the calculated change in BMD at the level of the left total hip (bone loss) as shown is significant (see Ref.#7) compared with 2008. The pattern noted in the above conclusion, in the context of post menopausal woman with low BMD plusage 64 , self -reported non -vertebral fracture are indications for Vertebral Fracture Assessment (VFA) (see Ref # 4), as the discovery of a vertebral fracture might influence clinical management. Suggest that the ordering provider consider a VFA. Clinical correlation is recommended based on the history of past fracture (see Ref #8) Bone densitometry cannot rule out secondary causes of bone loss. Therefore, further metabolic testing to look for secondary causes of low BMD should be performed if indicated. Repeat DXA testing in 2 years could be considered. Clinical correlation recommended. Principal result head inspector: Anh Ascencio MD, CCD Division of Diabetes, Endocrinology and Metabolism [facility] [phone] IF THE RESULTS TABLE IN FCIS OR IMAGECAST DOES NOT FORMAT PROPERLY, TO VIEW THE COMPLETE READABLE TABLE, GO TO: [facility] (CHART VIEWER), DXA SCAN - Silva Ref. 1. WHO categories: T-score > -1.0 = normal . T-score -1.0 to -2.5 = low bone density T-score < -2.5 = osteoporosis . Ref. 2. NOF Physician's Guideline Website address: www.nof.org. Ref. 3. [place] [employer]umat[employer] Recommendations for the Prevention and Treatment of Glucocorticoid-induced Osteoporosis: 2001 update in Arthritis and Rheumatism April 2001 edition(vol 44, issue 7) pp 8333-2995. Ref. 4. ISCD position statements: www.iscd.org. (includes the report of the 2007 VFA Position Development Conference) According to the ISCD position statements lateral [...] and positioning differences are not possible. Ref. 7.\R(LSC = least significant change) As of 03.29.07, the LSC for the AP spine at the [facility] imaging center is 0.032 g/cm2. As of 03.18.07, the LSC for the right hip at the [facility] center is 0.018 gm/cm2. As of 03.18.07, the LSC for the left hip at the [facility] center is 0.029 g/cm2. As of 03.29.07, the LSC for the left mid radius at the [facility] center is 0.043 g/cm2. As of [...] be compared because larger areas give better precision.\R Ref. 8. By definition, osteoporosis may be diagnosed in the presence or with the history of a low trauma or fragility fracture. Fragility and low trauma fracture is defined as a fracture resulting fromthe force of a fall from a standing height or less or a bone that breaks under conditions that wouldnot cause a normal bone to break. Updated 01-02-2008 Electronically signed by:Anh Ascencio M.D. Nov 08 2009 6:27PM DIESEL PILE HAMMER OPERATOR Author Reviewed by:Mehreen Johnston M.D.,PhD Nov 13 2009 7:01PM DIESEL PILE HAMMER OPERATOR EL PILE HAMMER OPERATOR documented in this encounter Plan of Treatment Upcoming Encounters Date Type Specialty Care Team Description 09/10/2022 Office Visit Internal Medicine LogeaMargot man MD [address] [place] [phone] (Wo rk) documented as of this encounter Visit Diagnoses Not on filedocumented in this encounter
--- OUTSIDE RECORDS SUMMARY | 2022-07-30 19:35 | XMS_ITS | Encounter Summary ---
:1945 Author Organization [facility] Address [address] [place] [id number] Care Team Providers Name Role Phone Unavailable Primary Care Provider Unavailable Encounter Details Date Type Department Care Team Description 02/24/2010 Office Visit-[facility] Women's Health Mehreen Green Phillips-Wangensteen MD PhD [address] 1st Floor, Clinic [address] [place] [address] (Wo rk) [phone] Social History Tobacco Use Types Packs/Day Years Used Date Smoking Tobacco: Never Alcohol Use Standard Drinks/Week Comments Not Asked 0 (1 standard drink = 0.6 oz pure alcoho l) Sex Assigned at Date Recorded Female 12/20/2018 4:10 PM CDT documented as of this encounter Progress Notes Mehreen Johnston - 02/24/2010 4:00 PM CDT Transportation Refrigeration Technician: Mehreen Johnston Status: Final - Signature Encounter: 24 Feb 2010 Type: [facility] Visit Family Medicine & Community Health Department of Family Medicine [place] Mail [address] [place] [address] Office: [phone] Women???[facility] First Floor, Clinic [address] [place] [address] [place] [address] Phone:\[phone] Fax:\[phone] RE: Yimi Garcia : 1945 MUSA: 02/24/2010 OUTPATIENT VISIT NOTE REASON FOR VISIT: Osteoporosis consult. HISTORY OF PRESENT ILLNESS: This is a 64-year-old 1, para 1-0-0-1 female who comes in for a osteoporosis consult. Patient has had a recent DEXA in November,, here at the [facility]. Her previous ones have been at [facility] in 2007. She has not had any fractures of major bones as an ad ult. Her mother did have osteoporosis, but not a hip fracture. She does not smoke cigarettes. She gets about three to four servings of dairy products a day. She takes a multivitamin every other day. She takes calcium citrate 200 mg two tablets twice a day. She is taking vitamin D about 3000 IU a day. Her last level in September,, was 34. She is not taking any strontium. She does not get out in the sun very often. She walks 30 minutes a day and she is also doing Jazzercise. She has an occasional glass of wine. She has not been on blood thinners, no chemo, no Depo, no anti-seizure meds, no steroids and no thyroid medication. She has not taken any bisphosphonates, Evista or calcitonin. She has no history of celiac sprue, no gastric bypass, no eating disorder, no inflammatory bowel disease. No history of high blood calcium or hyperparathyroidism. No diabetes, no liver disease, no kidney disease, no kidney stones. No lupus, no active thyroid disease and no rheumatoid arthritis. She has had a right hip replacement. She was 5 feet 7 inches at age 26. She is 5 feet 6- 1/2 inches today. Weight 171.3. She has been intermittently on estrogen in the past. She was on it [id number]-[id number]-half years,then off of it, and resumed it again and then stopped it in May,. She went through menopause, but not before age 46. She has not had a hysterectomy. She still has her ovaries. No history of breast cancer or family history of breast cancer. ACTIVE MEDICAL PROBLEMS: 1. Venous insufficiency. Menopause. Strongly family history of colon cancer. Hypertension. Vaginal atrophy. CURRENT MEDICATIONS: B complex one a day, calcium citrate 200 mg two twice a day, glucosamine once aday, lisinopril 20 mg a day, magnesium 300 mg a day, multivitamins every other, Mascot-3 1000 mg two capsules a day, vitamin D3 1000 IU three a day. Previously, she was using Esterase cream. ALLERGIES TO MEDICINE: Codeine derivatives and morphine derivatives. HABITS: Nonsmoker. FAMILY HISTORY: Positive for her mother with osteoporosis and colon cancer and two sisters also had osteoporosis. SOCIAL HISTORY: She is . 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 REVIEW OF SYSTEMS: No history of thyroid disease. She had a recent TSH in September,, which was negative. She has had a basic metabolic profile in September,. Creatinine, kidney function was normal. She has been to the [facility] and had a full cardiac evaluation with a cholesterol of 208, LDL 121, HDL 65, triglycerides 111. Her last pelvic was in August at [facility] . Her liver enzymes in November,, were normal and her CRP was 5.9. She does have a history of vaginal atrophy. She isnot having any vaginal bleeding. She has been on Esterase cream in the past, but has since run out of it and does want it refilled. She does have itching and burning in the vaginal area. She is currently not sexually active. PHYSICAL EXAMINATION: She is a pleasant older woman in no acute distress, looks younger than her stated age. Her blood pressure is 116/68, heart rate 68, height 66.5 inches, weight 171.3, BMI 27.2. Her lungs were clear with no wheezes, no rhonchi, no crackles. Her heart was regular rate 84. No murmur, no click, no gallop. No palpable thyroid. Abdomen: Soft. No organomegaly, no masses, no tenderness. Pelvic: She has mild thinning of the labia. The vaginal mucosa is thin and pink and pale. No rugae. Cervix is pale and atrophic looking. She has no ulceration or maceration of the tissue. Her DEXA of November,, of the spine L1 through L4 was -0.7, left femoral neck -1.1, left total hip -1.7. Right hip is replaced. Her 10 year probability for a major osteoporotic fracture is 6.6, for a hip fracture is 0.6%. She falls in the lifestyle advice and reassure. ASSESSMENT AND PLAN: 1. Osteopenia. She has some mild bone loss in the spine and the left hip. By frac tool she is not indicated for treatment. We would want to maximize her conservative management getting adequate [id number] mg a day in divided doses, vitamin D getting her level up above 35, and exercising both weight bearing and weights. Will check her vitamin D level, a magnesium phosphorous, a PTH, calcium and albumin today, as well as 24 hour urinary calcium to make sure everything is maximized. Her recent TSH, liver enzymes and kidney function were normal. I will get back with her on that. We talked about maximizing her calcium intake and her exercise and just repeating the DEXA again in two years. Vaginal atrophy. She is having some symptoms with this. I did refill her Esterase cream one applicator at bedtime for two weeks, then one-half applicator at bedtime for two weeks and then one-half applicators three times a week. I spent 40 minutes with her, more than 70% of that time was in counseling. Mehreen Johnston MD, PhD sql programmer [facility] [phone] or [phone] SA:11 DD 02/24/2010 Electronically signed by:Mehreen Johnston M.D.,PhD Feb 26 2010 3:19PM EXTRUSION PRESS OPERATOR Mehreen Johnston - 02/24/2010 4:00 PM CDT Transportation Refrigeration Technician: Mehreen Johnston Status: Final Encounter: 24 Feb 2010 Type: [facility] Visit Reason For Visit YIMI GARCIA is a 64 year old female who presents today for an osteoporosis follow up. Do you have any other appointments, tests or procedures within the [facility] system for this same day? No[ ] . Pain Eval Current history of pain associated with this visit is denied. Personal Hx Behavioral history: No caffeine use and no tobacco use. Alcohol: Not using alcohol. Drug use: Not using drugs. Home environment: No secondhand tobacco smoke in home. Allergies Codeine Derivatives Morphine Derivatives. Latex Allergy: No. Current Meds Multivitamins Capsule;TAKE 1 CAPSULE DAILY.; RPT Glucosamine Chondroitin Complx CAPS;TAKE 1 CAPSULE EVERY 12 HOURS; RPT Magnesium 300 MG Capsule;; RPT Lisinopril 20 MG Tablet;TAKE 1 TABLET DAILY.; Rx Calcium 500 TABS;TAKE 1.5 TABLET DAILY DIRECTED 800mg per day; RPT Mascot 3 1000 MG Capsule;TAKE 2 CAPSULE TWICE DAILY; RPT Mxvpgksjkds-Obsgwswpecd-BAH 500-250-250 MG Capsule;TAKE 1 CAPSULE EVERY 12 HOURS; RPT AAA-MED RECONCILE;Medications reviewed with the patient.; RPT B Complex 1 Tablet;; RPT MIRALAX POWD 3350NF;17 grams tid; Rx. Med list offered and patient declined. Vital Signs Recorded by padmini on 24 Feb 2010 04:07 PM BP:116/68, LUE, Sitting, HR: 68 b/min, Height: 66.5 in, Weight: 171.3 lb, BMI: 27.2 kg/m2, Pain Scale: 0. Performance Status GRADE : KARNOFSKY SCALE : PERFORMANCE 1 : 70 & 80 : Restricted in Physically Strenuous Activities/Ambulatory Initial: PV 02/24/2010. Signature Signed By: Mehreen Johnston M.D.,PhD; 02/24/2010 6:06 PM EXTRUSION PRESS OPERATOR. documented in this encounter Plan of Treatment Upcoming Encounters Date Type Specialty Care Team Description 09/10/2022 Office Visit Internal Medicine LogeaisMargot MD [address] [place] [phone] (Wo rk) documented as of this encounter Visit Diagnoses Not on filedocumented in this encounter
--- OUTSIDE RECORDS SUMMARY | 2022-07-30 19:35 | XMS_ITS | Encounter Summary ---
:1945 Author Organization [facility] Address [address] [place] [address] Care Team Providers Name Role Phone Unavailable Primary Care Provider Unavailable Encounter Details Date Type Department Care Team Description 10/22/2009 Office Visit-[facility] Ear, Nose and Throat Ismael Brewer MD Clinic [address] [facility] 8th Floor, Clinic 8A [address] [place] [address] [address] Social History Tobacco Use Types Packs/Day Years Used Date Smoking Tobacco: Never Alcohol Use Standard Drinks/Week Comments Not Asked 0 (1 standard drink = 0.6 oz pure alcoho l) Sex Assigned at Date Recorded Female 12/20/2018 4:10 PM CDT documented as of this encounter Progress Notes Honey Brewer C - 10/22/2009 8:00 AM CST Chocolate Coater: Honey Brewer Status: Final - Signature Encounter: 22 Oct 2009 Type: ENT Visit Department of Otolaryngology--Head and Neck Surgery [place] Mail Code [address] [place] [address] Office: [address] RE: Ramona Sheikh : 1945 MUSA: 10/22/2009 HISTORY OF PRESENT ILLNESS: Ramona is a patient who I have seen previously for turbinate cauterization. After her procedure, she was doing well but slowly her left-sided symptoms recurred. Now she has difficulty with breathing through her nose when she lays down at night. PROCEDURE NOTE: The nose was anesthetized topically with lidocaine phenylephrine solution. Lidocainewas injected into the left inferior turbinate. The Coblator was used to create three lesions; one inthe posterior turbinate, one in the mid- turbinate, and one in the head of the turbinate on the leftside. She tolerates this very well. PLAN: She will contact us in a couple of weeks to let us know how she is doing. Honey Brewer M.D. Otolaryngology-Head & Neck Surgery HCB:ms POTTER 10/22/2009 Electronically signed by:Honey Brewer MD Oct 22 2009 10:49AM WELDER PRODUCTION LINE COMBINATION ER PRODUCTION LINE COMBINATION documented in this encounter Plan of Treatment Upcoming Encounters Date Type Specialty Care Team Description 09/10/2022 Office Visit Internal Medicine LogeaMargot man MD [address] [address] (Wo rk) documented as of this encounter Visit Diagnoses Not on filedocumented in this encounter
--- OUTSIDE RECORDS SUMMARY | 2022-07-30 19:35 | XMS_ITS | Encounter Summary ---
:1945 Author Organization [place] Address [address] [place] [address] Care Team Providers Name Role Phone Unavailable Primary Care Provider Unavailable Encounter Details Date Type Department Care Team Description 10/03/2009 Historic Results Physicians, Primary Mehreen Johnston, [facility] PhD 3rd Floor, Clinic [address] [place] [address] [facility] [place] [phone] Social History Tobacco Use Types Packs/Day Years [...] Internal Medicine Logeais, MD Margot [address] [address] (Wo rk) documented as of this encounter Procedures Procedure Name Priority Date/Time Associated Comments Diagnosis VITAMIN D DEFICIENCY Routine 10/03/2009 1:35 PM R esults for this SCREENING NAILHEAD PUNCHER procedure are i n the results section. TSH WITH FREE T4 Routine 10/03/2009 1:35 PM Resul ts for this REFLEX NAILHEAD PUNCHER procedure are i n the results section. HEMOGLOBIN Routine 10/03/2009 1:35 PM Results f or this NAILHEAD PUNCHER procedure are i n the results section. BASIC METABOLIC PANEL Routine 10/03/2009 1:35 PM Results for this NAILHEAD PUNCHER procedure are i n the results section. ROUTINE UA WITH Routine 10/03/2009 12:23 Results for this MICROSCOPIC PM NAILHEAD PUNCHER procedure are i n the results section. URINE CULTURE Routine 10/03/2009 12:23 Results fo r this PM NAILHEAD PUNCHER procedure are i n the results section. documented in this encounter Results Basic metabolic panel (10/03/2009 1:35 PM NAILHEAD PUNCHER) athologist Signature Sodium 138 133 - 144 MISYS mmol/L Potassium 4.5 3.4 - 5.3 MISYS mmol/L Chloride 100 94 - 109 MISYS mmol/L Carbon Dioxide 32 20 - 32 MISYS mmol/L Glucose 86 60 - 99 MISYS mg/dL Comment: Non Fasting Urea Nitrogen 12 7 - 30 mg/dL MISYS Creatinine 0.84 0.52 - 1.04 mg/dL MISYS Comment: New IDMS-traceable calibration beginning 02/02/08 GFR Estimate 68 >60 mL/min/1.7m2 MISYS GFR Estimate If Black 83 >60 mL/min/1.7m2 M ISYS Calcium 9.9 8.5 - 10.4 mg/dL MISYS Anion Gap 6 6 - 17 mmol/L MISYS Specimen Anatomical Collection Method Collection Time Receive d Time (Source) Location / / Volume Laterality 10/03/2009 1:35 PM 9 1:29 NAILHEAD PUNCHER PM NAILHEAD PUNCHER Mehreen Johnston MD PhD LAB - BLOOD ORDERABLES Performing Organization Address City/State/ZIP Code Phon e Number MISYS Hemoglobin (10/03/2009 1:35 PM NAILHEAD PUNCHER) athologist Signature Hemoglobin 15.6 11.7 - 15.7 MISYS g/dL Specimen Anatomical Collection Method Collection Time Receive d Time (Source) Location / / Volume Laterality 10/03/2009 1:35 PM 9 1:29 NAILHEAD PUNCHER PM NAILHEAD PUNCHER Mehreen Johnston MD PhD LAB - BLOOD ORDERABLES Performing Organization Address City/State/ZIP Code Phon e Number MISYS TSH with free T4 reflex (10/03/2009 1:35 PM NAILHEAD PUNCHER) athologist Signature TSH 0.95 0.4 - 5.0 MISYS mU/L Specimen Anatomical Collection Method Collection Time Receive d Time (Source) Location / / Volume Laterality 10/03/2009 1:35 PM 9 1:29 NAILHEAD PUNCHER PM NAILHEAD PUNCHER Mehreen Johnston MD PhD LAB - BLOOD ORDERABLES Performing Organization Address City/State/ZIP Code Phon e Number MISYS Vitamin D deficiency screening (10/03/2009 1:35 PM NAILHEAD PUNCHER) P athologist Signature 25 [place] Vit D2 <5 ug/L MISYS 25 [place] Vit D3 34. ug/L MISYS 25 [place] Vit D <39 30 - 75 MISYS total ug/L Comment: Season, race, dietary intake, and treatm ent affect the concentration of 99-kifilrl-Qfpvyjb D. Values may decrea se during winter months and increase during summer months. Values less than 30 ug/L may indicate Vitamin D deficiency. Specimen Anatomical Collection Method Collection Time Receive d Time (Source) Location / / Volume Laterality 10/03/2009 1:35 PM 9 1:29 NAILHEAD PUNCHER PM NAILHEAD PUNCHER Mehreen Johnston MD PhD LAB - BLOOD ORDERABLES Performing Organization Address City/[facility] Code Phon e Number MISYS (ABNORMAL) Routine UA with microscopic (10/03/2009 12:23 PM NAILHEAD PUNCHER) Patholo gist Method Time Signature Source Midstream MISYS Urine Color Urine Yellow MISYS Appearance Urine Clear MISYS Glucose Urine Negative NEG mg/dL MISYS Bilirubin Urine Negative NEG MISYS Ketones Urine Negative NEG mg/dL MISYS Specific [place] 1.022 1.003 - MISYS Urine 1.035 Blood Urine Negative NEG MISYS pH Urine 5.5 5.0 - 7.0 MISYS pH Protein Albumin 10 (A) NEG mg/dL MISYS Urine Urobilinogen Normal 0.0 - 2.0 MISYS mg/dL mg/dL Nitrite Urine Negative NEG MISYS Leukocyte Negative NEG MISYS Esterase Urine WBC Urine 1 0 - 2 MISYS /HPF RBC Urine 2 0 - 2 MISYS /HPF Squamous 2 (H) 0 - 1 MISYS Epithelial /HPF /HPF Urine Mucous Urine Present (A) NEG /LPF MISYS Specimen Anatomical Collection Method Collection Time Receive d Time (Source) Location / / Volume Laterality 10/03/2009 12:23 10/03/2009 PM NAILHEAD PUNCHER 12:25 PM NAILHEAD PUNCHER Mehreen Johnston MD PhD LAB - URINE ORDERABLES Performing Organization Address City/[facility] Phon e Number MISYS Urine culture (10/03/2009 12:23 PM NAILHEAD PUNCHER) [facility] Method Time Signature Specimen Midstream MISYS Description Urine Culture Micro No growth MISYS Micro Report FINAL MISYS Status 10/04/2009 Specimen Anatomical Collection Method Collection Time Receive d Time (Source) Location / / Volume Laterality 10/03/2009 12:23 10/03/2009 PM NAILHEAD PUNCHER 12:25 PM NAILHEAD PUNCHER Mehreen Johnston MD PhD LAB - MICRO GENERAL ORDERABL ES Performing Organization Address City/State/[facility] Phon e Number MISYS documented in this encounter Visit Diagnoses Not on filedocumented in this encounter
--- OUTSIDE RECORDS SUMMARY | 2022-07-30 19:35 | XMS_ITS | Encounter Summary ---
:1945 Author Organization [place] Address [address] [place] [address] Care Team Providers Name Role Phone Unavailable Primary Care Provider Unavailable Encounter Details Date Type Department Care Team Description 02/24/2010 Historic Results Physicians, Primary Mehreen Johnston, [facility] PhD 3rd Floor, Clinic [address]A [address] [place] [address] [facility] [place] [phone] Social History Tobacco Use Types Packs/Day Years [...] Internal Medicine Logeais, MD Margot [address] [address] (Wo rk) documented as of this encounter Procedures Procedure Name Priority Date/Time Associated Comments Diagnosis VITAMIN D DEFICIENCY Routine 02/24/2010 5:44 PM R esults for this SCREENING CDT procedure are i n the results section. PHOSPHORUS Routine 02/24/2010 5:44 PM Results f or this CDT procedure are i n the results section. PARATHYROID HORMONE Routine 02/24/2010 5:44 PM Re sults for this INTACT CDT procedure are i n the results section. MAGNESIUM Routine 02/24/2010 5:44 PM Results f or this CDT procedure are i n the results section. CALCIUM Routine 02/24/2010 5:44 PM Results f or this CDT procedure are i n the results section. ALBUMIN LEVEL Routine 02/24/2010 5:44 PM Results for this CDT procedure are i n the results section. documented in this encounter Results Albumin level (02/24/2010 5:44 PM CDT) athologist Signature Albumin 4.2 3.3 - 4.9 MISYS g/dL Specimen Anatomical Collection Method Collection Time Receive d Time (Source) Location / / Volume Laterality 02/24/2010 5:44 PM 0 5:32 CDT PM CDT Mehreen Johnston MD PhD LAB - BLOOD ORDERABLES Performing Organization Address [facility] Code Phon e Number MISYS Calcium (02/24/2010 5:44 PM CDT) athologist Signature Calcium 9.5 8.5 - 10.4 MISYS mg/dL Specimen Anatomical Collection Method Collection Time Receive d Time (Source) Location / / Volume Laterality 02/24/2010 5:44 PM 0 5:32 CDT PM CDT Mehreen Johnston MD PhD LAB - BLOOD ORDERABLES Performing Organization Address City/[facility]/ZIP Code Phon e Number MISYS Magnesium (02/24/2010 5:44 PM CDT) athologist Signature Magnesium 2.2 1.6 - 2.3 MISYS mg/dL Specimen Anatomical Collection Method Collection Time Receive d Time (Source) Location / / Volume Laterality 02/24/2010 5:44 PM 0 5:32 CDT PM CDT Mehreen Johnston MD PhD LAB - BLOOD ORDERABLES Performing Organization Address City/[facility]/ZIP Code Phon e Number MISYS Phosphorus (02/24/2010 5:44 PM CDT) athologist Signature Phosphorus 4.2 2.5 - 4.5 MISYS mg/dL Specimen Anatomical Collection Method Collection Time Receive d Time (Source) Location / / Volume Laterality 02/24/2010 5:44 PM 0 5:32 CDT PM CDT Mehreen Johnston MD PhD LAB - BLOOD ORDERABLES Performing Organization Address City/State/ZIP Code Phon e Number MISYS Parathormone intact (02/24/2010 5:44 PM CDT) P athologist Signature Parathyroid 28 12 - 72 MISYS Hormone Intact pg/mL Specimen Anatomical Collection Method Collection Time Receive d Time (Source) Location / / Volume Laterality 02/24/2010 5:44 PM 0 5:32 CDT PM CDT Mehreen Johnston MD PhD LAB - BLOOD ORDERABLES Performing Organization Address [facility] Phon e Number MISYS Vitamin D deficiency screening (02/24/2010 5:44 PM CDT) P athologist Signature 25 [place] Vit D2 <5 ug/L MISYS 25 OH Vit D3 45 ug/L MISYS 25 OH Vit D <50 30 - 75 MISYS total ug/L Comment: Season, race, dietary intake, and treatm ent affect the concentration of 93-nfktqhr-G[place]gon D. Values may decrea se during winter months and increase during summer months. Values less than 30 ug/L may indicate Vitamin D deficiency. Specimen Anatomical Collection Method Collection Time Receive d Time (Source) Location / / Volume Laterality 02/24/2010 5:44 PM 0 5:32 CDT PM CDT Mehreen Johnston MD PhD LAB - BLOOD ORDERABLES Performing Organization Address City/[facility] Phon e Number MISYS documented in this encounter Visit Diagnoses Not on filedocumented in this encounter
--- OUTSIDE RECORDS SUMMARY | 2022-07-30 19:35 | XMS_ITS | Encounter Summary ---
:1945 Author Organization [place] Address [address] [place] [address]. [place] [address] Care Team Providers Name Role Phone Unavailable Primary Care Provider Unavailable Encounter Details Date Type Department Care Team Description 09/25/2009 Office Visit-[facility] Jorge Reyes Physicians Heart MD Nakul Barrera PHYSICIA [facility] Emergency Department [address] [facility] 4th Floor, Clinic [address]B [address] [place] [address] Social History Tobacco Use Types Packs/Day Years Used Date Smoking Tobacco: Never Alcohol Use Standard Drinks/Week Comments Not Asked 0 (1 standard drink = 0.6 oz pure alcoho l) Sex Assigned at Date Recorded Female 12/20/2018 4:10 PM CDT documented as of this encounter Progress Notes Jorge Reyes Bruce - 09/25/2009 8:00 AM CST Senior Search Marketing Analyst: Jorge Reyes Status: Final Encounter: 25 Sep 2009 Type: Cardiology Visit Active Problems Hemorrhoids (455.6) Hyperlipidemia (272.4) Hypertension (401.9) Osteoarthritis Of The Hip (715.95) Rest Tremor - Head Symptomatic Menopause (627.2). Reason For Visit Patient is a 64 year old lady who is here at the request of Dr. Lisseth Vang for cardiovascularexamination related to history of hypertension and hyperlipidemia. Pain Eval Current history of pain associated with this visit is denied. HPI Pt is a 64 yo female pt with no known PMH. She is seen for CV prevention. She denies and CV symptoms. She has a lot of stress at home and at school. PMH Hypertension Hyperlipidemia. Current Meds Multivitamins Capsule;TAKE 1 CAPSULE DAILY.; [...] Complex 1 Tablet;; RPT Astragalus CAPS;; RPT [place] 3 CAPS;TAKE DIRECTED.; RPT Estring 2 MG Ring;INSERT 1 APPLICATOR DIRECTED DIRECTED Change every 90 days. No further refills until seen in clinic.; Rx AAA-MED RECONCILE;Medications reviewed with the patient.; RPT. Allergies Codeine Derivatives Morphine Derivatives. Family Hx Problem Relation Colon CA Mother ( at age 93) Cardiovascular Father ( at age 79). Personal Hx Behavioral history: No tobacco use. Alcohol: Not using alcohol. Drug use: Not using drugs. Home environment: No secondhand tobacco smoke in home. Tobacco Ed No tobacco use. ROS Cardiovascular ROS is contained in the HPI. All other systems are normal. Vital Signs Recorded by Tiff Mcdonald on 25 Sep 2009 08:02 AM BP:134/80, RUE, Sitting, HR: 69 b/min, Height: 67 in, Weight: 172.3 lb, BMI: 27 kg/m2, O2 Sat: 97 (%SpO2), RA. Physical Exam General: no acute distress, alert and oriented times 3 Head: normocephalic, atraumatic Eyes: EOM intact; sclera nonicteric; pupils equal, round, reactive to light Mouth: mucosa moist, palate elevates symmetrically Neck: no lymphadenopathy or thryromegaly, no carotid bruits, JVP approx 6cm w/o HJR Heart: regular rate and rhythm, normal S1 S2, no murmurs, rubs or gallops Lungs: clear Abdoment: soft, non-tender, bowel sounds present, no hepatosplenomegaly Extremeties: no clubbing, cyanosis or edema Pulses intact. Assessment 1. Pre-hypertension. Pt is asked to check BP readings at home and report readings to the office in 2-3 weeks. 2. Normal lipid profile in the past 2 years. Recheck today. 3. Recommend: - Regular physical activity - Stress control - Home monitoring of BP 4. RTC as needed. Signature Signed By: Jorge Reyes M.D.; 09/25/2009 8:41 AM WICK AND BASE ASSEMBLER. AND BASE ASSEMBLER documented in this encounter Plan of Treatment Upcoming Encounters Date Type Specialty Care Team Description 09/10/2022 Office Visit Internal Medicine Logeais, MD Margot [address] [address] (Wo rk) documented as of this encounter Visit Diagnoses Not on filedocumented in this encounter
--- OUTSIDE RECORDS SUMMARY | 2022-07-30 19:35 | XMS_ITS | Encounter Summary ---
:1945 Author Organization [place] Address [address] [place] [address]. [place] [address] Care Team Providers Name Role Phone Unavailable Primary Care Provider Unavailable Encounter Details Date Type Department Care Team Description 11/07/2009 Results Only [facility] Mehreen Johnston, [facility] Results MD Decker [address] [place] [address] (Wo rk) Social History Tobacco Use Types [...] Visit Internal Medicine Logeais, MD Margot 909 [facility] [address] [place], [place] [phone] (Wo rk) documented as of this encounter Procedures Procedure Name Priority Date/Time Associated Diagnosis Comme [facility] DEXA BONE Routine 11/07/2009 5:21 PM Results f or this DENSITY, >=1 SITE, OPERATOR MAINTAINER procedure are in AXIAL SKELETON the results section. documented in this encounter Results DEXA,BONE DENSITY,AXIAL SKELETON (11/07/2009 5:21 PM OPERATOR MAINTAINER) Anatomical Region Laterality Modality Other Specimen (Source) Anatomical Collection Method Collection Time Re ceived Time Location / / Volume Laterality 11/07/2009 5:21 PM OPERATOR MAINTAINER Impressions 11/11/2009 11:15 AM OPERATOR MAINTAINER Conclusions: Patient: Ramona Sheikh ? DOScan: 11/07/2009 ?? Based on the lowest and valid T-score of -1.7 ??at the level of the left total hip ??according to WHO criter ia for postmenopausal females and men age 50 [...] T- scores within the lumbar spine (L1 -1.5, L4 -0.1). This pattern s uggests degenerative joint disease or occult fractures at the lumba r level that would limit the detection of low bone density in the L1 - L4 spine region. ??The lumbar spine is therefore represented by L1-L2. ? Taking into account the precision errors for this center, the calculated change in BMD at the level of the left total hip (bone loss) as shown is significant (see Ref.# 7) compared with 2008. ?? The pattern noted in the above conclusio n, in the context of post menopausal woman with low BMD plus ??age 64 , self -reported non -vertebral fracture are indications for Vertebral Fracture Assessment (VFA) (see Ref # 4), as the discovery of a vertebral fracture might influence clinical management. ??Suggest that the ordering provider consider a VFA. ?? Clinical correlation is recommended base d on the history of past fracture (see Ref #8) ?? Bone densitometry cannot rule out second kitty causes of bone loss. ?? Therefore, further metabolic testing to look for secondary causes of low BMD should be performed if indicated . ?? Repeat DXA testing in 2 years could be c onsidered. ? Clinical correlation recommended. ? Principal result nursing tech: Anh Ascencio MD, [facility] Division of Diabetes, Endocrinology and Metabolism [facility] [phone] ? IF THE RESULTS TABLE IN FCIS OR IMAGECAS T DOES NOT FORMAT PROPERLY, ?? TO VIEW THE COMPLETE READABLE TABLE, GO TO: ?? [facility] (CHART VIEWER), DXA SCAN - Bu rmeister Mehreen Johnston MD PhD SPECIAL IMAGING STUDIES documented in this encounter Visit Diagnoses Not on filedocumented in this encounter
--- OUTSIDE RECORDS SUMMARY | 2022-07-30 19:35 | XMS_ITS | Encounter Summary ---
:1945 Author Organization [place] Address [address] [place] [address]. [place] [address] Care Team Providers Name Role Phone Unavailable Primary Care Provider Unavailable Encounter Details Date Type Department Care Team Description 12/26/2009 Office Visit-[facility] INTERFACE [facility] DEPT Provider, [facility] Nurs e Social History Tobacco Use Types Packs/Day Years Used Date Smoking Tobacco: Never Alcohol Use Standard Drinks/Week Comments Not Asked 0 (1 standard drink = 0.6 oz pure alcoho l) Sex Assigned at Date Recorded Female 12/20/2018 4:10 PM CDT documented as of this encounter Progress Notes Provider, [facility] Nurse - 12/26/2009 8:00 AM CDT Neurology Nurse: Tiff Mcdonald Status: Final Encounter: 26 Dec 2009 Type: Rooming Note Reason For Visit YIMI GARCIA is a 64 year old female present today with a BP check. Active Problems Hemorrhoids (455.6) Hyperlipidemia (272.4) Hypertension (401.9) Osteoarthritis Of The Hip (715.95) Rest Tremor - Head Symptomatic Menopause (627.2). Pain Eval Current history of pain associated with this visit is denied. Vital Signs Recorded by Tiff Mcdonald on 26 Dec 2009 07:59 AM BP:128/77, LUE, Sitting, HR: 67 b/min, O2 Sat: 98 (%SpO2), RA. Allergies Codeine Derivatives Morphine Derivatives. Current Meds Multivitamins Capsule;TAKE 1 CAPSULE DAILY.; RPT Glucosamine Chondroitin Complx CAPS;TAKE 1 CAPSULE EVERY 12 HOURS; RPT MIRALAX POWD 3350NF;17 grams tid; Rx Magnesium 300 MG Capsule;; RPT B Complex 1 Tablet;; RPT Lisinopril 20 MG Tablet;TAKE 1 TABLET DAILY.; Rx Calcium 500 TABS;TAKE 1.5 TABLET DAILY DIRECTED 800mg per day; RPT [place] 3 1000 MG Capsule;TAKE 2 CAPSULE TWICE DAILY; RPT Wwedimuoreb-Kfqqckrzsnf-CGG 500-250-250 MG Capsule;TAKE 1 CAPSULE EVERY 12 HOURS; RPT AAA-MED RECONCILE;Medications reviewed with the patient.; RPT. Signature Signed By: Tiff Mcdonald CMA; 12/26/2009 8:02 AM SERICULTURIST. documented in this encounter Plan of Treatment Upcoming Encounters Date Type Specialty Care Team Description 09/10/2022 Office Visit Internal Medicine LogeaMargot man MD [address] [phone] (Wo rk) documented as of this encounter Visit Diagnoses Not on filedocumented in this encounter
--- OUTSIDE RECORDS SUMMARY | 2022-07-30 19:35 | XMS_ITS | Encounter Summary ---
:1945 Author Organization [place] Address [address] [place] [address]. [place] [address] Care Team Providers Name Role Phone Unavailable Primary Care Provider Unavailable Encounter Details Date Type Department Care Team Description 09/25/2009 Historic Results [facility]-Jody Beyer PHYSICIANS [address] [place] [address] [address] [place] [address] (Wo rk) Social History Tobacco Use [...] Office Visit Internal Medicine LogeaisMargot MD [address] [address] (Wo rk) documented as of this encounter Procedures Procedure Name Priority Date/Time Associated Diagnosis Comme nts LIPID PROFILE Routine 09/25/2009 9:02 AM Results for this BIOMETRICS CONSULTANT procedure are i n the results section . documented in this encounter Results (ABNORMAL) Lipid panel (09/25/2009 9:02 AM BIOMETRICS CONSULTANT) P athologist Signature Cholesterol 208 (H) 0 - 200 MISYS mg/dL Comment: LDL Cholesterol is the primary guide to therapy: LDL-cholesterol goal in high risk patients is <100 mg/dL and in very high risk patients is <70 mg/dL. The NCEP recommends further evaluation of: patients with cholesterol <200 mg/dL if additionalrisk factors are present, cholesterol >240 mg/dL, triglycerides >150 mg/dL, or HDL <40 mg/dL. Triglycerides 111 0 - 150 mg/dL MISYS HDL Cholesterol 65 50 - 110 mg/dL MISYS LDL Cholesterol Calculated 121 0 - 129 mg/dL MISYS VLDL-Cholesterol 22 0 - 30 mg/dL MISYS Cholesterol/HDL Ratio 3.2 0.0 - 5.0 MISYS Specimen Anatomical Collection Method Collection Time Receive d Time (Source) Location / / Volume Laterality 09/25/2009 9:02 AM 9:13 BIOMETRICS CONSULTANT AM BIOMETRICS CONSULTANT Jorge Reyes MD LAB - BLOOD ORDERABLES Performing Organization Address City/State/ZIP Code Phon e Number MISYS documented in this encounter Visit Diagnoses Not on filedocumented in this encounter
--- OUTSIDE RECORDS SUMMARY | 2022-07-30 19:36 | XMS_ITS | Encounter Summary ---
:1945 Author Organization [place] Address [address] [place] [address]. [place] [address] Care Team Providers Name Role Phone Unavailable Primary Care Provider Unavailable Encounter Details Date Type Department Care Team Description 06/18/2009 Office Visit-[facility] Ear, Nose and Throat Ismael Brewer MD Clinic [address] [facility] 8th Floor, Clinic 8A [address] [place] [address] [phone] Social History Tobacco Use Types Packs/Day Years Used Date Smoking Tobacco: Never Alcohol Use Standard Drinks/Week Comments Not Asked 0 (1 standard drink = 0.6 oz pure alcoho l) Sex Assigned at Date Recorded Female 12/20/2018 4:10 PM CDT documented as of this encounter Progress Notes Honey Brewer C - 06/18/2009 7:45 AM CDT Rate Manager: Honey Brewer Status: Final - Signature Encounter: 18 Jun 2009 Type: ENT Visit Department of Otolaryngology--Head and Neck Surgery [place] Mail Code 396 [address] [place] [address] Office: [address] RE: Ramona Sheikh : 1945 MUSA: 06/18/2009 Ramona is a patient who presents for turbinate reduction. Her nose is anesthetized topically with Lidocaine Phenylephrine solution and injected with 1% Lidocaine. A Coblator is used on a setting of 6. Three lesions were created in each turbinate for 8 seconds each. Both inferior turbinates were outfractured as well. The lesions were created submucosally. She tolerates this well. She has minimal bleeding. I will see her back in two to three weeks. She will use decongestant sprays and saline for nasal cares. Honey Brewer M.D. Otolaryngology-Head & Neck Surgery HCB:ms POTTER 06/18/2009 Electronically signed by:Honey Brewer MD Jun 21 2009 9:17AM STUMP SHOOTER Reviewed by:Lisseth Estes M.D. Jun 26 2009 2:00PM STUMP SHOOTER documented in this encounter Plan of Treatment Upcoming Encounters Date Type Specialty Care Team Description 09/10/2022 Office Visit Internal Medicine Margot Branham MD [address] [place] [id number] (Wo rk) documented as of this encounter Visit Diagnoses Not on filedocumented in this encounter
--- OUTSIDE RECORDS SUMMARY | 2022-07-30 19:36 | XMS_ITS | Encounter Summary ---
:1945 Author Organization [facility] Address [address] [place] [address]. [place] [address] Care Team Providers Name Role Phone Lisseth Vang MD Primary Care Provider Mehreen Johnston MD PhD Primary Care Provider [phone] Lisseth Vang MD Primary Care Provider Mehreen Johnston MD PhD Primary Care Provider [phone] Balbir Simpson MD Primary Care Provider [phone] Carlota Landeros MD Unavailable Balbir Simpson MD Unavailable [phone] Luz Maria Kelly MD Unavailable Lisseth Vang MD Unavailable Encounter Details Date Type Department Care Team Description 10/05/2008 [facility] Info Mgmt Scan, Provider Srvcs [address] [place] [address] Social History Tobacco Use Types Packs/Day Years Used Date Smoking Tobacco: Never Assessed Sex Assigned at Date Recorded Female 12/20/2018 4:10 PM CDT documented as of this encounter Plan of Treatment Upcoming Encounters Date Type Specialty Care Team Description 09/10/2022 Office Visit Internal Medicine LogeaMargot man MD [address] [place] [address] (Wo rk) documented as of this encounter Procedures Procedure Name Priority Date/Time Associated Diagnosis Comme nts EKG CARDIAC - HIM SCAN Routine 10/05/2008 documented in this encounter Results EKG Cardiac - HIM Scan (10/05/2008) Narrative This result has an attachment that is no t available. Patient Reported ECG ORDERABLES documented in this encounter Visit Diagnoses Not on filedocumented in this encounter Care Teams Force Variation Equipment Tender Relationship Specialty Start Date End Date Lisseth Vang MD PCP - General 02/05/11 03/18/[address] [place], [place] [id number] Mehreen Johnston MD PhD PCP - [facility] 03/19/11 11/15/11 Lisseth Vang MD PCP - General 04/13/16 11/14/[address] [place], [place] [id number] Mehreen Johnston MD PhD PCP - [facility] 11/27/13 03/25/15 Balbir Simpson, PCP - General Internal Medicine 03/26/15 04/12/16 Carlota Landeros MD MD Urology 04/10/[address] [place], [place] [address] Balbir Simpson, Referring Physician Internal Medicine 04/0303/29/16 Luz Maria Kelly MD MD Internal Medicine 03/27/16 02/22/17 Lisseth Vang MD PCP Family Practice 03/30/16 11/14/[address] [facility] [address] [place] [address] documented as of this encounter
--- OUTSIDE RECORDS SUMMARY | 2022-07-30 19:36 | XMS_ITS | Encounter Summary ---
:1945 Author Organization [facility] Address [address] [place] [address]. [place] [address] Care Team Providers Name Role Phone Unavailable Primary Care Provider Unavailable Encounter Details Date Type Department Care Team Description 02/04/2009 Office Visit-[facility] Unknown, Provider Social History Tobacco Use Types Packs/Day Years Used Date Smoking Tobacco: Never Alcohol Use Standard Drinks/Week Comments Not Asked 0 (1 standard drink = 0.6 oz pure alcoho l) Sex Assigned at Date Recorded Female 12/20/2018 4:10 PM CDT documented as of this encounter Progress Notes Unknown, Provider - 02/04/2009 8:00 AM CDT Sde: Giselle Syed Status: Final Encounter: 04 Feb 2009 Type: Rooming Note Reason For Visit YIMI GARCIA is a 63 year old female presenting today with sinus congestion and ear infection not too long ago. Do you have any other appointments of any type today within the [facility] system? (this includes clinic appt's, Imaging, labs, procedures etc.) No. Pain Eval Current history of pain associated with this visit is denied. Active Problems Hemorrhoids (455.6) Osteoarthritis Of The Hip (715.95) Rest Tremor - Head Symptomatic Menopause (627.2). Personal Hx Behavioral history: No tobacco use. Home environment: No secondhand tobacco smoke in home. Allergies No Known Drug Allergy. Current Meds Multivitamins Capsule;TAKE 1 CAPSULE DAILY.; RPT Mucinex D TB12;; RPT Glucosamine Chondroitin Complx CAPS;TAKE 1 CAPSULE EVERY 12 HOURS; RPT Calcium + D TABS;TAKE 1 TABLET EVERY 12 HOURS; RPT HydrOXYzine HCl 25 MG Tablet;TAKE 1 TABLET 4 TIMES DAILY NEEDED.; Rx Prometrium 100 MG Capsule;TAKE 1 CAPSULE DAILY; RPT Astelin 137 MCG/SPRAY Solution;USE DIRECTED.; Rx Vivelle-Dot 0.025 MG/24HR Patch Biweekly;APPLY 1 PATCH TWICE WEEKLY DIRECTED.; Rx Guaifenesin 400 MG Tablet;TAKE 1 TABLET EVERY 12 HOURS; RPT Proctofoam HC 1-1 % FOAM;USE DIRECTED.; Rx AAA-MED RECONCILE;Med Reconcile; RPT. Signature Electronically Signed By: Giselle Syed MA; 02/04/2009 8:15 AM DOCK LOADER. documented in this encounter Plan of Treatment Upcoming Encounters Date Type Specialty Care Team Description 09/10/2022 Office Visit Internal Medicine LogeaMargot man MD [address] [place] [address] (Wo rk) documented as of this encounter Visit Diagnoses Not on filedocumented in this encounter
--- OUTSIDE RECORDS SUMMARY | 2022-07-30 19:36 | XMS_ITS | Encounter Summary ---
:1945 Author Organization [facility] Address [address] [place] [address]. [place] [address] Care Team Providers Name Role Phone Unavailable Primary Care Provider Unavailable Reason for Visit Reason Onset Date Comments Results 06/24/2009 Encounter Details Date Type Department Care Team Description 06/24/2009 Telephone [facility] Urgent Parul Saha PA-C Results Care [place] [address] [place] [address] [place], [place] [phone] Social History Tobacco Use Types Packs/Day Years Used Date Smoking Tobacco: Never Alcohol Use Standard Drinks/Week Comments Not Asked 0 (1 standard drink = 0.6 oz pure alcoho l) Sex Assigned at Date Recorded Female 12/20/2018 4:10 PM CDT documented as of this encounter Miscellaneous Notes Telephone Encounter - Latoya Gutiérrez - 06/24/2009 6:11 PM CDT Urine culture reveals: >100,000 colonies/mL Klebsiella pneumoniae Patient given keflex and although sensitivities did not include keflex, it was shown to be resistant to other cephlasporins in the same class. Call patient with results and call in: Cipro 250mg BID x 5 days. ER MYKEL SAHA PT NOTIFED AND RX CALLED INTO [facility] CMA documented in this encounter Plan of Treatment Upcoming Encounters Date Type Specialty Care Team Description 09/10/2022 Office Visit Internal Medicine LogeaMargot man MD [address] [address] (Wo rk) documented as of this encounter Visit Diagnoses Not on filedocumented in this encounter
--- OUTSIDE RECORDS SUMMARY | 2022-07-30 19:36 | XMS_ITS | Encounter Summary ---
:1945 Author Organization [facility] Address [address] [place] [address]. [place] [address] Care Team Providers Name Role Phone Unavailable Primary Care Provider Unavailable Reason for Visit Reason Comments Flu Shot Encounter Details Date Type Department Care Team Description 08/17/2008 [facility] Flu Shot Visit [address] [phone] Social History Tobacco Use Types Packs/Day Years Used Date Smoking Tobacco: Never Assessed Sex Assigned at Date Recorded Female 12/20/2018 4:10 PM CDT documented as of this encounter Progress Notes Ulises Crowe - 08/17/2008 4:35 PM CST Injectable Influenza Immunization Documentation 1. Has the patient received the information for the injectable influenza vaccine? YES 2. Is the patient 6 months of age or older? YES 3. Does the patient have any of the following contraindications? Severe allergy to eggs? No Severe allergic reaction to previous influenza vaccines? No Allergy to contact lens solution/thimerosol? No History of Guillain-[place] syndrome? No Currently have moderate or severe illness? No 3. The vaccine has been administered and the patient was instructed to wait 15 minutes before leaving the building in the event of an allergic reaction: YES Vaccination given by Ulises Crowe MA TRUCTION DRILLER documented in this encounter Plan of Treatment Upcoming Encounters Date Type Specialty Care Team Description 09/10/2022 Office Visit Internal Medicine Logeais, MD Margot [address] [phone] (Wo rk) documented as of this encounter Visit Diagnoses Diagnosis Need for prophylactic vaccination and in oculation against influenza documented in this encounter
--- OUTSIDE RECORDS SUMMARY | 2022-07-30 19:36 | XMS_ITS | Encounter Summary ---
:1945 Author Organization [facility] Address [address] [place] [address] Care Team Providers Name Role Phone Unavailable Primary Care Provider Unavailable Encounter Details Date Type Department Care Team Description 10/05/2008 Historic Results [facility] Anh Costa, Physicians Heart PROPERTY CLAIMS MANAGER PAUL Mota [facility] 4th Floor, Clinic [address] [phone] Social History Tobacco Use Types Packs/Day Years Used Date Smoking Tobacco: Never Assessed Sex Assigned at Date Recorded Female 12/20/2018 4:10 PM CDT documented as of this encounter Plan of Treatment Upcoming Encounters Date Type Specialty Care Team Description 09/10/2022 Office Visit Internal Medicine LogeaMargot man MD [address] [place] [id number] (Wo rk) documented as of this encounter Procedures Procedure Name Priority Date/Time Associated Comments Diagnosis MICROALBUMIN RANDOM Routine 10/05/2008 10:44 Resu lts for this URINE AM DIVISION ORDER TECHNICIAN procedure are i n the results section. N TERMINAL PRO BNP Routine 10/05/2008 10:44 Resul ts for this OUTPATIENT AM DIVISION ORDER TECHNICIAN procedure are i n the results section. LIPID PROFILE Routine 10/05/2008 10:44 Results fo r this AM DIVISION ORDER TECHNICIAN procedure are i n the results section. CRP CARDIAC RISK Routine 10/05/2008 10:44 Results for this AM DIVISION ORDER TECHNICIAN procedure are i n the results section. CREATININE URINE Routine 10/05/2008 10:44 Results for this CALCULATION ONLY (LAB AM DIVISION ORDER TECHNICIAN proced ure are in ONLY) the results section. GLUCOSE Routine 10/05/2008 10:44 Results for this AM DIVISION ORDER TECHNICIAN procedure are i n the results section. documented in this encounter Results (ABNORMAL) Lipid panel (10/05/2008 10:44 AM DIVISION ORDER TECHNICIAN) P athologist Signature Cholesterol 222 (H) 0 - 200 [facility] mg/dL Comment: LDL Cholesterol is the primary guide to therapy: LDL-cholesterol goal in high risk patients is <100 mg/dL and in very high risk patients is <70 mg/dL. The NCEP recommends further evaluation of: patients with cholesterol <200 mg/dL if additionalrisk factors are present, cholesterol >240 mg/dL, triglycerides >150 mg/dL, or HDL <40 mg/dL. Triglycerides 125 0 - 150 mg/dL MISYS HDL Cholesterol 70 50 - 110 mg/dL MISYS LDL Cholesterol Calculated 127 0 - 129 mg/dL MISYS VLDL-Cholesterol 25 0 - 30 mg/dL MISYS Cholesterol/HDL Ratio 3.2 0.0 - 5.0 MISYS Specimen Anatomical Collection Method Collection Time Receive d Time (Source) Location / / Volume Laterality 10/05/2008 10:44 10/05/2008 AM DIVISION ORDER TECHNICIAN 10:50 AM DIVISION ORDER TECHNICIAN Anh Costa APRN, CNP LAB - BLOOD ORDERABLES Performing Organization Address City/State/ZIP Code Phon e Number MISYS CRP cardiac risk (10/05/2008 10:44 AM DIVISION ORDER TECHNICIAN) athologist Signature CRP Cardiac 5.3 mg/L [facility] Risk Comment: Reference Values: Low Risk: ? <1.0 mg/L Average Risk: ? 1.0-3.0 mg/L High Risk: ?>3.0 mg/L Acute Inflammation: >8.0 mg/L Specimen Anatomical Collection Method Collection Time Receive d Time (Source) Location / / Volume Laterality 10/05/2008 10:44 10/05/2008 AM DIVISION ORDER TECHNICIAN 10:50 AM DIVISION ORDER TECHNICIAN Anh Costa APRN, CNP LAB - BLOOD ORDERABLES Performing Organization Address City/State/ZIP Code Phon e Number MISYS Glucose (10/05/2008 10:44 AM DIVISION ORDER TECHNICIAN) athologist Signature Glucose 88 60 - 99 [facility] mg/dL Specimen Anatomical Collection Method Collection Time Receive d Time (Source) Location / / Volume Laterality 10/05/2008 10:44 10/05/2008 AM DIVISION ORDER TECHNICIAN 10:50 AM DIVISION ORDER TECHNICIAN Anh Costa APRN, CNP LAB - BLOOD ORDERABLES Performing Organization Address [facility] Code Phon e Number MISYS (ABNORMAL) N terminal pro BNP outpatient (10/05/2008 10:44 AM DIVISION ORDER TECHNICIAN) P athologist Signature N-Terminal Pro 296 (H) 0 - 125 MISYS Bnp pg/mL Comment: Reference ranges shown and results maco ed as abnormal are for outpatient settings. Establishing a baseline value for each individual patient is useful for follow-up. Suggested inpatient cut points for confirming diagnosis of CHF are: ?>450 pg/mL (age less than 50) ?>900 pg/mL (age 50-75) ?>1800 pg/mL (greater than 75 yr s). An inpatient or emergency department NT -proBNP <300 pg/mL effectively rules out acute CHF, with 99% negative predictive value. Specimen Anatomical Collection Method Collection Time Receive d Time (Source) Location / / Volume Laterality 10/05/2008 10:44 10/05/2008 AM DIVISION ORDER TECHNICIAN 10:50 AM DIVISION ORDER TECHNICIAN Anh Costa APRN, CNP LAB - BLOOD ORDERABLES Performing Organization Address [facility]/ZIP Code Phon e Number MISYS Creatinine urine calculation only (10/05/2008 10:44 AM DIVISION ORDER TECHNICIAN) P athologist Signature Creatinine Urine 168 mg/dL MISYS Specimen Anatomical Collection Method Collection Time Receive d Time (Source) Location / / Volume Laterality 10/05/2008 10:44 10/05/2008 AM DIVISION ORDER TECHNICIAN 10:50 AM DIVISION ORDER TECHNICIAN Anh Costa APRN, CNP LAB - URINE ORDERABLES Performing Organization Address City/[facility]/ZIP Code Phon e Number MISYS Microalbumin random urine (10/05/2008 10:44 AM DIVISION ORDER TECHNICIAN) Patholo gist Method Time Signature Albumin Urine <2 mg/L MISYS mg/L Albumin Urine Unable to 0 - 20 MISYS mg/g Cr calculate mg/g Cr Specimen Anatomical Collection Method Collection Time Receive d Time (Source) Location / / Volume Laterality 10/05/2008 10:44 10/05/2008 AM DIVISION ORDER TECHNICIAN 10:50 AM DIVISION ORDER TECHNICIAN Anh Costa APRN VESSEL MANAGER LAB - URINE ORDERABLES Performing Organization Address City/State/ZIP Code Phon e Number MISYS documented in this encounter Visit Diagnoses Not on filedocumented in this encounter
--- OUTSIDE RECORDS SUMMARY | 2022-07-30 19:36 | XMS_ITS | Encounter Summary ---
:1945 Author Organization [facility] Address [address] [place] [address]. [place] [address] Care Team Providers Name Role Phone Unavailable Primary Care Provider Unavailable Encounter Details Date Type Department Care Team Description 05/31/2009 Office Visit-[facility] Ear, Nose and Throat Ismael Brewer MD Clinic [address] [facility] 8th Floor, Clinic [address]A [address] [place] [address] [address] Social History Tobacco Use Types Packs/Day Years Used Date Smoking Tobacco: Never Alcohol Use Standard Drinks/Week Comments Not Asked 0 (1 standard drink = 0.6 oz pure alcoho l) Sex Assigned at Date Recorded Female 12/20/2018 4:10 PM CDT documented as of this encounter Progress Notes Honey Brewer C - 05/31/2009 3:00 PM CDT Police Commanding Officer: Honey Brewer Status: Final - Signature Encounter: 31 May 2009 Type: ENT Visit Department of Otolaryngology--Head and Neck Surgery [place] Mail Code [address] [place] [address] Office: [address] RE: Ramona Sheikh : 1945 MUSA: 05/31/2009 Ramona is here returning for rhinitis symptoms and nasal obstruction. She is doing very well. We had significantly improved her symptoms of rhinitis and nasal congestion by stopping a lot of her medications. Now she has intermittent congestion, worse at night. It goes from side to side and it wakes her up. We had discussed a possible turbinate reduction, and she would like to re-discuss this today. I examined her. Her left nasal passage looks nicely open. She has a small spur inferiorly. Right nasal passage demonstrates slightly enlarged inferior turbinates but overall again her symptoms are significantly improved with regards to the rhinitis. She would benefit from a turbinate reduction. We went over this in detail. We will get her scheduled to have this done in the clinic. We will perform Coblator turbinate reduction and turbinate outfracture with a Boies elevator. Honey Brewer M.D. Otolaryngology-Head & Neck Surgery HCB: TARIQ 05/31/2009 Electronically signed by:Honey Brewer MD Jun 03 2009 10:15AM PAYMENT SPECIALIST documented in this encounter Plan of Treatment Upcoming Encounters Date Type Specialty Care Team Description 09/10/2022 Office Visit Internal Medicine LogeaMargot man MD [address] [place] [address] (Wo rk) documented as of this encounter Visit Diagnoses Not on filedocumented in this encounter
--- OUTSIDE RECORDS SUMMARY | 2022-07-30 19:36 | XMS_ITS | Encounter Summary ---
:1945 Author Organization [facility] Address [address] [place] [address] Care Team Providers Name Role Phone Unavailable Primary Care Provider Unavailable Encounter Details Date Type Department Care Team Description 04/02/2009 Office Visit-[facility] Ear, Nose and Throat Ismael Brewer MD Clinic [address] [facility] 8th Floor, Clinic [address]A [address] [place] [address] [address] Social History Tobacco Use Types Packs/Day Years Used Date Smoking Tobacco: Never Alcohol Use Standard Drinks/Week Comments Not Asked 0 (1 standard drink = 0.6 oz pure alcoho l) Sex Assigned at Date Recorded Female 12/20/2018 4:10 PM CDT documented as of this encounter Progress Notes Honey Brewer - 04/02/2009 12:00 PM CDT Landscape Supervisor: Honey Brewer Status: Final - Signature Encounter: 02 Apr 2009 Type: ENT Visit Department of Otolaryngology--Head and Neck Surgery [place] Mail Code [address] [place] [address] Office: [address] RE: Ramona Sheikh : 1945 MUSA: 04/02/2009 HISTORY OF PRESENT ILLNESS: Ramona is a patient who I saw previously who was on multiple nasal medications to treat obstruction and drainage and basically was taking medications to counteract the side effects of the other medications. We reduced her medications down to Astelin nasal spray and Hydroxyzine. She is using both of them sparingly. Overall, her symptoms have significantly improved. She also feels that her improvement comes from the fact that she is no longer in the school environment where she was getting a lot of respiratory infections. PHYSICAL EXAMINATION: Examination reveals improved moisturization of her nasal mucosa bilaterally. On the head of the left inferior turbinate, she has a small patch of dry mucosa and she has a small adjacent spur on the septum. Her left- sided nasal breathing is still reduced compared to the right. PLAN: I would like her to continue on with this current remedy throughout the summer. If her breathing bothers her, she will come in to schedule a turbinoplasty and possible limited septoplasty. Otherwise if her breathing continues to improve, I will see her again in the fall prior to starting school to discuss ways to help prevent recurrence of her symptoms. Honey Brewer M.D. Otolaryngology-Head & Neck Surgery HCB:ms POTTER 04/02/2009 Electronically signed by:Honey Brewer MD Apr 08 2009 8:36AM PAYLOADER OPERATOR documented in this encounter Plan of Treatment Upcoming Encounters Date Type Specialty Care Team Description 09/10/2022 Office Visit Internal Medicine Margot Branham MD [address] [place] [phone] (Wo rk) documented as of this encounter Visit Diagnoses Not on filedocumented in this encounter
--- OUTSIDE RECORDS SUMMARY | 2022-07-30 19:36 | XMS_ITS | Encounter Summary ---
:1945 Author Organization [place] Address [address] [place] [address] Care Team Providers Name Role Phone Unavailable Primary Care Provider Unavailable Encounter Details Date Type Department Care Team Description 01/14/2009 Office Visit-[facility] Colon and Rectal Surgery Fauzia Hamilton MD [facility]en [address] [facility] Building [address] 1st Floor, Clinic [address] [place] [address] Social History Tobacco Use Types Packs/Day Years Used Date Smoking Tobacco: Never Alcohol Use Standard Drinks/Week Comments Not Asked 0 (1 standard drink = 0.6 oz pure alcoho l) Sex Assigned at Date Recorded Female 12/20/2018 4:10 PM CDT documented as of this encounter Progress Notes Theresa Hamilton - 01/14/2009 8:00 AM CDT Optical Worker: Theresa Hamilton Status: Final - Signature Encounter: 14 Jan 2009 Type: Colon Rectal Visit Colon & Rectal Surgery Clinic Department of Surgery [place] Mail Code 450 [address] [facility] [place] [address] [facility] First Floor, Clinic [address]E [address] [place] [address] RE: Ramona Sheikh : 1945 MUSA: 01/14/2009 OUTPATIENT VISIT NOTE REFERRING PHYSICIAN: Dr. Lisseth Estes, of [facility] Physician's Family Medicine. REASON FOR CONSULTATION: Perianal discomfort. HISTORY OF PRESENT ILLNESS: Ms. Ramona Sheikh is a 63-year-old woman who is overall healthy who reports having a hemorrhoid history over 15 years. She reports having pain after having bowel movements, especially when she strains. She's had a long history of harder bowel movements and some constipationfor which she takes senna on an as needed basis. Occasionally she has bright red blood per rectum but only after having a hard stool. She does feel, at times, tissue protruding outside her rectum and she finds that it's difficult to get good hygiene. Currently she has one bowel movement daily. Occasionally she will use ProctoFoam but this has not made a difference. Her mother had rectal cancer that is currently metastatic to her lungs. A few years ago she had a colonoscopy which was clear with no polyps. She is planning on having a repeat colonoscopy at three years following the last one. PAST MEDICAL HISTORY: Sinus problems. PAST SURGICAL HISTORY: 1. in 1978. Two breast biopsies, both benign, approximately 15 and 20 years ago. Breast reduction surgery in 1996. September 2008, left hip replacement. Hemorrhoidal banding, approximately ten years ago. MEDICATIONS: 1. Astelin 137 mcg spray as needed. Calcium supplement. Estrace cream. Glucosamine chondroitin. Hydroxyzine 25 mg q.i.d. Multivitamin. Propazone(?) prn. Prometrium 100 mg daily. Sudafed every 12 hours as needed. Vivell-Dot 0.25 mg every 24 hours, change every two weeks. SOCIAL HISTORY: Patient does not smoke. She consumes one glass of wine approximately two times per month. 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 She's had one . No vaginal deliveries with a single . FAMILY HISTORY: Her father had colon polyps in his 60's. Mother had colon polyps in her 50's. Possible history of colitis in her mother but this is unclear. Mother has rectal cancer diagnosed in July 2008 which is metastatic to her lungs, diagnosed at age 91. She has a paternal aunt and uncle, bothwith colon cancer. She has a maternal grandmother who had pancreatic cancer. No other history of cancers in the family. REVIEW OF SYSTEMS: No change in weight. No fevers or chills. No headaches. Respiratory: No shortnessof breath. No sleep apnea. Cardiovascular: No chest pain. No heart attack. No hypertension. CONTROL EQUIPMENT ELECTRICIAN history: Reports no previous issues. : No kidney problems. No urinary tract infection. Endocrine: No diabetes. No thyroid problems. Neurologic: No strokes, seizures, or other nerve problems. Heme: No anemia or other blood problems. PHYSICAL EXAMINATION: On physical examination, the patient is well-appearing in no acute distress. Her abdomen is soft, nontender, and nondistended. Perianal examination demonstrates normal perianal skin. A small anterior tag. Digital rectal examination demonstrates good sphincter tone. No palpable masses. Anoscopy demonstrates minimal internal hemorrhoidal disease. Because of the patient's history and age, I spoke with her further about her symptoms and she does continue to report this prolapse of tissue from her rectum. I had the patient sit on the commode and bear down. On examination, there is some evidence of minimal mucosal prolapse with some evidence of hemorrhoidal disease. The risks and benefits were thoroughly discussed with the patient and she agreed to proceed with banding. A consent was obtained. A single band was placed in the left lateral position and one in the right posterior position. The patient tolerated this well. IMPRESSION/PLAN: This is a 63-year-old woman with ongoing perianal symptoms, a family history of colorectal cancer, and a long-standing history of constipation. 1. We spoke about laxative therapy. The patient will try fiber supplementation with lots of water and possibly try MiraLAX. Family history of colorectal cancer. I explained to the patient that with her familial risk and a previous clean colonoscopy two years ago that most likely a repeat should be obtained at three years. She will contact us if she needs to set this up. I gave her the phone number to our clinic to set thisup as needed. Mucosal prolapse and hemorrhoidal disease. We performed internal hemorrhoidal banding today on the left lateral and right posterior position. We will tentatively set up an appointment for eight weeks from now for possible repeat banding, although the patient may cancel this if this does not appear to be needed and her symptoms improve significantly. Total time with patient was 30 minutes, over half of it was spent counseling the patient. Theresa Hamilton M.D. Habitat Management Coordinator Division of Colon and Rectal Surgery Department of Surgery GM:deven cc: Lisseth Estes MD [facility] Physicians Family Medicine [facility] [address] [facility] [address] [place] [address] DD 01/14/2009 Electronically signed by:Theresa Hamilton M.D. Jan 17 2009 5:30AM TOMATO PASTE MAKER Author documented in this encounter Plan of Treatment Upcoming Encounters Date Type Specialty Care Team Description 09/10/2022 Office Visit Internal Medicine Margot Branham MD [address] [place] [phone] (Wo rk) documented as of this encounter Visit Diagnoses Not on filedocumented in this encounter
--- OUTSIDE RECORDS SUMMARY | 2022-07-30 19:36 | XMS_ITS | Encounter Summary ---
:1945 Author Organization [place] Address [address] [place] [address]. [place] [address] Care Team Providers Name Role Phone Unavailable Primary Care Provider Unavailable Encounter Details Date Type Department Care Team Description 10/05/2008 Office Visit-[facility] En[place] Costa, Physicians Heart EARTH SCIENCE LABORATORY TECHNICIAN PAUL Mota [facility] 4th Floor, Clinic [address] [place] [phone] Social History Tobacco Use Types Packs/Day Years Used Date Smoking Tobacco: Never Assessed Sex Assigned at Date Recorded Female 12/20/2018 4:10 PM CDT documented as of this encounter Progress Notes Enid Costa - 10/05/2008 10:00 AM CST Bar Machine Operator Production: Enid Costa Status: Final Encounter: 05 Oct 2008 Type: Cardiology Visit Reason For Visit 63 year old female here for Malin screening. Last Clinic Visit New patient. HPI . Ms. Sheikh is a 63 year old female with a hx variable blood pressure occasionally with systolic inthe 140's. She also has occasional chest tightness several times per year for a few seconds. She is generally active walking and doing house hold chores. Her nutrition is reported to be low in saturated fat foods with 0 reported daily average, 4 or more fruit and vegetable servings per day, one caffeine beverage per day, coffee and 2-3 alcohol beverages per month, 3 calcium rich foods per day and never adds salt or uses salty foods. She uses a combination of the FlyCleaners and Clusterize diet. We discussed heart healthy nutrition and blood pressure managment. . ROS Constitutional: No fever, chills, or sweats. No weight gain/loss. ENT: No visual disturbance, ear ache, epistaxis, sore throat. Allergies/Immunologic: Negative. Respiratory: No cough, hemoptysis. Cardiovascular: As per HPI. GI: No nausea, vomiting, hematemesis, melena, or hematochezia. : No urinary frequency, dysuria, or hematuria. Integument: Negative. Psychiatric: Negative. Neuro: Negative. Endocrinology: Negative. Musculoskeletal: Negative. Pain Eval Current history of pain associated with this visit is denied. Active Problems Osteoarthritis Of The Hip (715.95) Rest Tremor - Head Symptomatic Menopause (627.2). PMH 1) 1 para 1 status post in 1978. Was on and off hormone therapy- She was [facility] [place] [facility] [place] started on prometrium and has been on low dose viville dot for a couple of months. Helping her sleep and hot flashes. 2) Status post breast reduction 1996. 3) Osteoarthritis of the right hip Minimal invasive surgery 09/09. 4) Drug sensitivies to codeine and morphine with significanat nausea. . Family Hx FAMILY HISTORY: Mother is living at 91 with terminal cancer. She does have a history of irregular heart beat for approximately ten years. Father at age 79 of CHF with reported previous PE, attributed to his hypertension and heart failure. She has four sisters, 58, 65, 67, and 70, reported in [facility]. She has one brother, 55, who in a motor vehicle accident. Maternal grandmother at 84 of pancreatic cancer. Maternal grandfather at 82 of heart attack. Paternal grandmother at 65 of heart problems. Paternal grandfather at 70 of pneumonia after the flu. 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 She has one son age 29. Allergies No Known Drug Allergy. Current Meds Multivitamins Capsule;TAKE 1 CAPSULE DAILY.; RPT Mucinex D TB12;; RPT Glucosamine Chondroitin Complx CAPS;TAKE 1 CAPSULE EVERY 12 HOURS; RPT Calcium + D TABS;TAKE 1 TABLET EVERY 12 HOURS; RPT Estrace 0.1 MG/GM Cream;INSERT 1 APPLICATOR DIRECTED DIRECTED insert 1/4 applicator intravaginally 3 times/week; Rx HydrOXYzine HCl 25 MG Tablet;TAKE 1 TABLET 4 TIMES DAILY NEEDED.; Rx Prometrium 100 MG Capsule;TAKE 1 CAPSULE DAILY; RPT Astelin 137 MCG/SPRAY Solution;USE DIRECTED.; Rx AAA-MED RECONCILE;Med Reconcile; RPT Vivelle-Dot 0.025 MG/24HR Patch Biweekly;APPLY 1 PATCH TWICE WEEKLY DIRECTED.; Rx Sudafed 12 Hour TBCR;TAKE 1 TABLET EVERY 12 HOURS DAILY.; RPT Guaifenesin 400 MG Tablet;TAKE 1 TABLET EVERY 12 HOURS; RPT. Vital Signs Recorded by alfa on 05 Oct 2008 11:00 AM BP:138/82, LUE, Sitting, HR: 62 b/min, L Radial, Normal, Height: 67 in, Weight: 156.7 lb, BMI: 24.5 kg/m2. Waist: 35 hip: 39. Physical Exam In general, the patient is [...] the radial and PT sites bilaterally. Results Lipid Battery 05 Oct 2008 10:44 AM - Cholesterol: 222 mg/dL - Triglyceride: 125 mg/dL - Direct Measure HDL: 70 mg/dL - LDL-Cholesterol: 127 mg/dL - VLDL-Cholesterol: 25 mg/dL - Chol/HDLC Ratio: 3.2 Glucose 05 Oct 2008 10:44 AM - Glucose: 88 mg/dL NT-proBNP, outpatient 05 Oct 2008 10:44 AM - NT-proBNP, outpatient: 296 pg/ml Creatinine Urine 05 Oct 2008 10:44 AM - Creatinine Urine: 168 mg/dL Microalbumin, R Ur 05 Oct 2008 10:44 AM - Microalbumin mg/L: <2 - Microalbumin mg/gCr: Unable to calculate CRP Cardiac Risk 05 Oct 2008 10:44 AM - CRP Cardiac Risk: 5.3 mg/L. ABDOMINAL AORTA ULTRASOUND SupraEliac: 1.7 cm < 2.5 Normal SupraRenal: 1.7 cm 2.5 - 2.9 Ectatci InfraRenal Proximal: 1.7 cm More than 3 cm Anuerysmal InfraRenal Distal: 1.7 cm Comments: ABDOMINAL AORTA ULTRASOUND within normal limit. LEFT VENTRICULAR ULTRASOUNDS MEASUREMENTS DIASTOLE SYSTOLE CALCULATIONS: BSA LVIDD 46 Septa 10 Posterior 9 . Assessment Plan Full report to follow prevention team review of data. Signature Electronically Signed By: ENID COSTA NJuana; 10/12/2008 2:29 PM SHAKER TENDER. ER TENDER documented in this encounter Plan of Treatment Upcoming Encounters Date Type Specialty Care Team Description 09/10/2022 Office Visit Internal Medicine Margot Branham MD [address] [phone] (Wo rk) documented as of this encounter Visit Diagnoses Not on filedocumented in this encounter
--- OUTSIDE RECORDS SUMMARY | 2022-07-30 19:36 | XMS_ITS | Encounter Summary ---
:1945 Author Organization [place] Address [address] [place] [address]. [place] [address] Care Team Providers Name Role Phone Unavailable Primary Care Provider Unavailable Encounter Details Date Type Department Care Team Description 05/16/2008 Office Visit-[facility] Women's Health Mehreen Green Phillips-Wangensteen MD PhD [address] 1st Floor, Clinic [address] [place] [address] (Wo rk) [address] [phone] Social History Tobacco Use Types Packs/Day Years Used Date Smoking Tobacco: Never Assessed Sex Assigned at Date Recorded Female 12/20/2018 4:10 PM CDT documented as of this encounter Progress Notes Mehreen Johnston - 05/16/2008 10:00 AM CDT Enrollment Manager: Mehreen Johnston Status: Final Encounter: 16 May 2008 Type: [facility] Visit Reason For Visit Follow-up. Allergies No Known Drug Allergy. Current Meds Multivitamins Capsule;TAKE 1 CAPSULE DAILY.; RPT Milk Thistle CAPS;TAKE DIRECTED.; RPT Mucinex D TB12;; RPT Glucosamine Chondroitin Complx CAPS;TAKE 1 CAPSULE EVERY 12 HOURS; RPT Calcium + D TABS;TAKE 1 TABLET EVERY 12 HOURS; RPT Vivelle-Dot 0.025 MG/24HR Patch Biweekly;APPLY 1 PATCH TWICE WEEKLY DIRECTED.; Rx Sulfamethoxazole-TMP DS 800-160 MG Tablet;TAKE 1 TABLET TWICE DAILY FOR 3 DAYS.; Rx Estrace 0.1 MG/GM Cream;INSERT 1 APPLICATOR DIRECTED DIRECTED insert 1/4 applicator intravaginally 3 times/week; Rx HydrOXYzine HCl 25 MG Tablet;TAKE 1 TABLET 4 TIMES DAILY NEEDED.; Rx Prometrium 100 MG Capsule;TAKE 1 CAPSULE DAILY; RPT Metrogel GEL;; RPT Astelin 137 MCG/SPRAY Solution;USE DIRECTED.; Rx AAA-MED RECONCILE;Med Reconcile; RPT. Pain Assessment Current history of pain associated with this visit is denied. Smoking Assessment No secondhand cigarette smoke exposure. No tobacco use. Vital Signs Recorded by yamel on 16 May 2008 10:11 AM BP:124/72, LUE, Sitting, Height: 67 in, Weight: 167.7 lb, BMI: 26.3 kg/m2. Performance Status GRADE : KARNOFSKY SCALE : PERFORMANCE 0 : 90 & 100 : Fully Active Initial: TW Date: 05/16/2008. Signature Electronically Signed By: Mehreen Johnston M.D.,PhD; 05/17/2008 12:36 PM BUSINESS SERVICES ASSOCIATE. Mehreen Johnston - 05/16/2008 10:00 AM CDT Enrollment Manager: Mehreen Johnston Status: Final - Signature Encounter: 16 May 2008 Type: [facility] Visit Family Practice & [facility] Department of Family Medicine [place] Mail Code [address] [place] [address] Office: [phone] [facility], [place] [address] Phone:\[phone] Fax:\[phone] RE: Ramona Sheikh : 1945 MUSA: 05/16/2008 OUTPATIENT VISIT NOTE REASON FOR VISIT: UTI and vaginal atrophy. HISTORY OF PRESENT ILLNESS: This is a 62-year-old who comes in today follow up of recent UTI. She has recently become sexually active in March. She had a recent UTI at that time which was treated with antibiotics. Most recently however she was traveling and was slightly dehydrated. She has been using aplastic dilator to stretch the vagina because she has recently become sexually active. When she got home she was having some urgency and burning, no fever or chills. She went to a [facility]. They felt she had an UTI and was given antibiotics for seven days, twice a day and is still on them. Her symptoms are essentially gone at this time. No dysuria or hematuria. No urgency. She did want her urinerechecked. Currently, she is on hormone therapy. She is using Vivelle Dot as well as she has changed from Provera to Prometrium. She recently saw Dr. Simpson mid-March and had STI testing, all of which is negative. She was seen by myself for vaginal atrophy in early April. I had prescribed initially betamethasone cream and then changed her to Estrace cream. This has helped improve her symptoms. She has been using one-quarter of applicator vaginally three times a week for almost two months now. She has not had any vaginal bleeding. MEDICATIONS: Reviewed in the EMR. ALLERGIES: No known drug allergies. TOBACCO USE: Nonsmoker. REVIEW OF SYSTEMS: No nausea, no vomiting. No fever, no chills, no back pain. No cough, no wheezing,no shortness of breath. No chest pain. No racing heart. No headaches. EXAMINATION: Pleasant middle aged woman in no acute distress. Her blood pressure is 124/72. Height is 67 inches. Weight is 167.7. BMI is 26.3. Her vaginal exam showed mild thinning of the labia. Vaginal mucosa however was pink and healthy. The cervix looked pink and healthy. No vaginal irritation. Her urine showed some protein, a few red cells, some calcium oxalate crystals and mucus. ASSESSMENT AND PLAN: 1. Recent UTI, seems to have cleared. Would encourage her to void after intercourse, drink a lot of water. If she gets recurrent urinary infections we may want to treat her with a prophylactic antibiotics after intercourse. She has apparently done this in the past. Hormone therapy. She is tolerating the Vivelle and Prometrium. Currently no vaginal bleeding. Continue with this. Vaginal atrophy. This has improved using the Estrace cream. Would recommend stopping it since she isnow on hormone therapy. We will continue to follow. Calcium oxalate crystals in urine puts her at higher risk for kidney stones. Would encourage her to drink a lot of water. Mehreen Johnston MD, PhD billing machine operator [facility] [phone] or [phone] SA:[email or web address] Electronically signed by:Mehreen Johnston M.D.,PhD May 17 2008 12:47PM BUSINESS SERVICES ASSOCIATE documented in this encounter Plan of Treatment Upcoming Encounters Date Type Specialty Care Team Description 09/10/2022 Office Visit Internal Medicine Margot Branham MD [address] [place] [address] (Wo rk) documented as of this encounter Visit Diagnoses Not on filedocumented in this encounter
--- OUTSIDE RECORDS SUMMARY | 2022-07-30 19:36 | XMS_ITS | Encounter Summary ---
:1945 Author Organization [place] Address [address] [place] [address]. [place] [address] Care Team Providers Name Role Phone Unavailable Primary Care Provider Unavailable Encounter Details Date Type Department Care Team Description 05/31/2009 Office Visit-[facility] INTERFACE [facility] DEPT Unknown, Provider Social History Tobacco Use Types Packs/Day Years Used Date Smoking Tobacco: Never Alcohol Use Standard Drinks/Week Comments Not Asked 0 (1 standard drink = 0.6 oz pure alcoho l) Sex Assigned at Date Recorded Female 12/20/2018 4:10 PM CDT documented as of this encounter Progress Notes Unknown, Provider - 05/31/2009 3:00 PM CDT [employer] Project Manager: Ary Esqueda Status: Final Encounter: 31 May 2009 Type: Rooming Note Reason For Visit YIMI GARCIA is a 63 year old female presenting today with sinus nasl tissue problem. Do you have any other appointments of any type today within the [facility] system? (this includes clinic appt's, Imaging, labs, [...] this clinic. Needs to have refilled by [facility] MD; Rx Prometrium 100 MG Capsule;TAKE 1 CAPSULE DAILY at bedtime. No further refills from this clinic. Musthave refilled by [facility] .; Rx AAA-MED RECONCILE;per patient; RPT. Signature Signed By: Ary Esqueda MA; 05/31/2009 3:22 PM SALES ANALYTICS MANAGER. documented in this encounter Plan of Treatment Upcoming Encounters Date Type Specialty Care Team Description 09/10/2022 Office Visit Internal Medicine Margot Branham MD [address] [place] [phone] (Wo rk) documented as of this encounter Visit Diagnoses Not on filedocumented in this encounter
--- OUTSIDE RECORDS SUMMARY | 2022-07-30 19:36 | XMS_ITS | Encounter Summary ---
:1945 Author Organization [place] Address [address] [place] [address]. [place] [address] Care Team Providers Name Role Phone Unavailable Primary Care Provider Unavailable Encounter Details Date Type Department Care Team Description 04/02/2009 Office Visit-[facility] INTERFACE [facility] DEPT Provider, [facility] Nurs e Social History Tobacco Use Types Packs/Day Years Used Date Smoking Tobacco: Never Alcohol Use Standard Drinks/Week Comments Not Asked 0 (1 standard drink = 0.6 oz pure alcoho l) Sex Assigned at Date Recorded Female 12/20/2018 4:10 PM CDT documented as of this encounter Progress Notes Provider, [facility] Nurse - 04/02/2009 12:00 PM CDT Phthalic Acid Purifier: Nimisha Dennis Status: Amended, Final Encounter: 02 Apr 2009 Type: Rooming Note Reason For Visit YIMI GARCIA is a 63 year old female presenting today with f/u sinus check. Do you have any other appointments of any type today within the [facility] system? (this includes clinic appt's, Imaging, labs, procedures etc.) Yes. Pain Eval Current history of pain associated with this visit is denied. Active Problems Hemorrhoids (455.6) Osteoarthritis Of The Hip (715.95) Rest Tremor - Head Symptomatic Menopause (627.2). Personal Hx Behavioral history: No tobacco use. Home environment: No secondhand tobacco smoke in home. Vital Signs Recorded by Raquel Velasco on 02 Apr 2009 10:45 AM BP:145/70, LUE, Sitting, HR: 74 b/min, Height: 67 in, Weight: 168.0 lb, BMI: 26.3 kg/m2. Recorded by [email or web address] on 02 Apr 2009 01:07 PM BP:136/80, HR: 67 b/min Amended By: Susan Harrison ; 04/02/2009 1:07 PM MAINTAINER OPERATOR. Allergies No Known Drug Allergy. Morphine Derivatives. Codeine Derivatives. Current Meds Multivitamins Capsule;TAKE 1 CAPSULE [...] Biweekly;APPLY 1 PATCH TWICE WEEKLY DIRECTED.; Rx Proctofoam HC 1-1 % Foam;USE DIRECTED.; Rx AAA-MED RECONCILE;per patient; RPT. Med list offered and patient declined. Signature Signed By: Nimisha QUINN; 04/02/2009 12:24 PM MAINTAINER OPERATOR. Signed By: Nimisha QUINN; 04/03/2009 4:13 PM MAINTAINER OPERATOR. documented in this encounter Plan of Treatment Upcoming Encounters Date Type Specialty Care Team Description 09/10/2022 Office Visit Internal Medicine LogeaMargot mna MD [address] [place] [phone] (Wo rk) documented as of this encounter Visit Diagnoses Not on filedocumented in this encounter
--- OUTSIDE RECORDS SUMMARY | 2022-07-30 19:36 | XMS_ITS | Encounter Summary ---
:1945 Author Organization [facility] Address [address] [place] [address] Care Team Providers Name Role Phone Unavailable Primary Care Provider Unavailable Encounter Details Date Type Department Care Team Description 05/16/2008 Historic Results Physicians, Primary Preston, Mehreen Butler, [facility] MD PhD 3rd Floor, Clinic 3A [address] [facility] [place] [phone] Social History Tobacco Use Types Packs/Day Years Used Date Smoking Tobacco: Never Assessed Sex Assigned at Date Recorded Female 12/20/2018 4:10 PM CDT documented as of this encounter Plan of Treatment Upcoming Encounters Date Type Specialty Care Team Description 09/10/2022 Office Visit Internal Medicine Logeais, MD Margot [address] [address] (Wo rk) documented as of this encounter Procedures Procedure Name Priority Date/Time Associated Comments Diagnosis ROUTINE UA WITH STAT 05/16/2008 11:36 Results for this MICROSCOPIC AM CDT procedure are i n the results section. URINE CULTURE STAT 05/16/2008 11:36 Results fo r this AM CDT procedure are i n the results section. documented in this encounter Results (ABNORMAL) Routine UA with microscopic (05/16/2008 11:36 AM CDT) [facility] Method Time Signature Source Midstream MISYS Urine Color Urine Yellow MISYS Appearance Urine Slightly MISYS Cloudy Glucose Urine Negative NEG mg/dL MISYS Bilirubin Urine Negative NEG MISYS Ketones Urine Negative NEG mg/dL MISYS Specific [place] 1.026 1.003 - MISYS Urine 1.035 Blood Urine Negative NEG MISYS pH Urine 5.5 5.0 - 7.0 MISYS pH Protein Albumin 10 (A) NEG mg/dL MISYS Urine Urobilinogen 2.0 0.0 - 2.0 MISYS mg/dL mg/dL Nitrite Urine Negative NEG MISYS Leukocyte Negative NEG MISYS Esterase Urine WBC Urine 1 0 - 2 MISYS /HPF RBC Urine 5 (H) 0 - 2 MISYS /HPF Squamous 8 (H) 0 - 1 MISYS Epithelial /HPF /HPF Urine Transitional Epi <1 0 - 1 MISYS /HPF Calcium Oxalate Many (A) NEG /HPF MISYS Mucous Urine Present (A) NEG /LPF MISYS Specimen Anatomical Collection Method Collection Time Receive d Time (Source) Location / / Volume Laterality 05/16/2008 11:36 05/16/2008 AM CDT 11:38 AM CDT Mehreen Johnston MD PhD LAB - URINE ORDERABLES Performing Organization Address City/State/[facility] Phon e Number MISYS Urine culture (05/16/2008 11:36 AM CDT) [facility] gist Method Time Signature Specimen Midstream MISYS Description Urine Culture Micro No growth MISYS Micro Report FINAL MISYS Status 05/17/2008 Specimen Anatomical Collection Method Collection Time Receive d Time (Source) Location / / Volume Laterality 05/16/2008 11:36 05/16/2008 AM CDT 11:38 AM CDT Mehreen Johnston MD PhD LAB - MICRO GENERAL ORDERABL ES Performing Organization Address City/State/[facility] Phon e Number MISYS documented in this encounter Visit Diagnoses Not on filedocumented in this encounter
--- OUTSIDE RECORDS SUMMARY | 2022-07-30 19:36 | XMS_ITS | Encounter Summary ---
:1945 Author Organization [facility] Address [address] [place] [address]. [place] [address] Care Team Providers Name Role Phone Unavailable Primary Care Provider Unavailable Encounter Details Date Type Department Care Team Description 12/03/2008 Office Visit-[facility] Neurology Clinic Son Bermudez Phillips-Wangensteen MD [address] 1st Floor, Clinic [address] [phone] (Wo rk) [phone] Social History Tobacco Use Types Packs/Day Years Used Date Smoking Tobacco: Never Assessed Sex Assigned at Date Recorded Female 12/20/2018 4:10 PM CDT documented as of this encounter Progress Notes Son Bermudez - 12/03/2008 3:00 PM CST Tariff Counsel: Son Bermudez Status: Final - Signature Encounter: 03 Dec 2008 Type: Neurology Visit Neurology Clinic [address] [place] [address] Clinic 1A [place] [address] Telephone [phone] Fax RE: Ramona Sheikh : 1945 MUSA: 12/03/2008 OUTPATIENT VISIT NOTE Ramona was scheduled to be seen today on December 03, 2008. She did not show for an appointment today or canceled it. Uncertain if she will call back to be seen. She has a history of osteoarthritis of the right hip. Codeine, morphine sensitivities. 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 She had recently been seen in primary care as well as in cardiology. Uncertain if she will come back for an evaluation. Son Bermudez M.D. [facility] Helper of Neurology PT:tanner cc: Lisseth Estes M.D. [facility] Electronically signed by:Son Bermudez MD Dec 04 2008 10:30AM [employer]NS[employer] RY PASTRY INTERNSHIP documented in this encounter Plan of Treatment Upcoming Encounters Date Type Specialty Care Team Description 09/10/2022 Office Visit Internal Medicine LogeaMargot man MD [address] [address] (Wo rk) documented as of this encounter Visit Diagnoses Not on filedocumented in this encounter
--- OUTSIDE RECORDS SUMMARY | 2022-07-30 19:36 | XMS_ITS | Encounter Summary ---
:1945 Author Organization [facility] Address [address] [place] [address]. [place] [address] Care Team Providers Name Role Phone Unavailable Primary Care Provider Unavailable Encounter Details Date Type Department Care Team Description 06/18/2009 Office Visit-[facility] INTERFACE [facility] DEPT Provider, [facility] Nurs e Social History Tobacco Use Types Packs/Day Years Used Date Smoking Tobacco: Never Alcohol Use Standard Drinks/Week Comments Not Asked 0 (1 standard drink = 0.6 oz pure alcoho l) Sex Assigned at Date Recorded Female 12/20/2018 4:10 PM CDT documented as of this encounter Progress Notes Provider, [facility] Nurse - 06/18/2009 7:45 AM CDT Television Analyzer: Nimisha Dennis Status: Final Encounter: 18 Jun 2009 Type: Rooming Note Reason For Visit YMII GARCIA is a 63 year old female presenting today with coblator turbinate reduction. Do you have any other appointments of any type today within the [facility] system? (this includes clinic appt's, Imaging, [...] this clinic. Needs to have refilled by [facility] MD; Rx Prometrium 100 MG Capsule;TAKE 1 CAPSULE DAILY at bedtime. No further refills from this clinic. Musthave refilled by [facility] .; Rx AAA-MED RECONCILE;per patient; RPT. Med list offered and patient declined. Signature Signed By: Nimisha QUINN; 06/18/2009 7:57 AM WILDLIFE ECOLOGIST. documented in this encounter Plan of Treatment Upcoming Encounters Date Type Specialty Care Team Description 09/10/2022 Office Visit Internal Medicine Margot Branham MD [address] [place] [phone] (Wo rk) documented as of this encounter Visit Diagnoses Not on filedocumented in this encounter
--- OUTSIDE RECORDS SUMMARY | 2022-07-30 19:36 | XMS_ITS | Encounter Summary ---
:1945 Author Organization [facility] Address [address] [place] [address]. [place] [address] Care Team Providers Name Role Phone Unavailable Primary Care Provider Unavailable Encounter Details Date Type Department Care Team Description 07/22/2009 Office Visit-[facility] INTERFACE [facility] DEPT Provider, [facility] Nurs e Social History Tobacco Use Types Packs/Day Years Used Date Smoking Tobacco: Never Alcohol Use Standard Drinks/Week Comments Not Asked 0 (1 standard drink = 0.6 oz pure alcoho l) Sex Assigned at Date Recorded Female 12/20/2018 4:10 PM CDT documented as of this encounter Progress Notes Provider, [facility] Nurse - 07/22/2009 8:00 AM CDT Junk Dealer: Kalpana Gutiérrez Status: Final Encounter: 22 Jul 2009 Type: Rooming Note Reason For Visit Follow Up Hemorrhoids Banding Do you have any other appointments, tests or procedures within the [facility] system for this same day? No. Pain Eval Current history of pain associated with this visit is denied. Personal Hx Behavioral history: No tobacco use. Home environment: No secondhand tobacco smoke in home. Allergies Codeine Derivatives Morphine Derivatives. Current Meds [ Med list offered and patient declined. ][ Meds List Printed and given to patient. ]. Multivitamins Capsule;TAKE 1 CAPSULE DAILY.; RPT Glucosamine [...] this clinic. Needs to have refilled by [facility] MD; Rx Prometrium 100 MG Capsule;TAKE 1 CAPSULE DAILY at bedtime. No further refills from this clinic. Musthave refilled by [facility] MD.; Rx Propoxyphene N-APAP 50-325 MG Tablet;TAKE 1 TABLET 4 TIMES DAILY NEEDED.; Rx Ibuprofen 600 MG Tablet;TAKE 1 TABLET 4 TIMES DAILY WITH MEALS NEEDED.; Rx MIRALAX POWD 3350NF;17 grams tid; Rx AAA-MED RECONCILE;per patient; RPT. Med list offered and patient declined. Signature Signed By: Kalpana Gutiérrez MA; 07/22/2009 8:39 AM FIRE CHIEF'S AIDE. documented in this encounter Plan of Treatment Upcoming Encounters Date Type Specialty Care Team Description 09/10/2022 Office Visit Internal Medicine LogeaisMargot MD [address] [phone] (Wo rk) documented as of this encounter Visit Diagnoses Not on filedocumented in this encounter
--- OUTSIDE RECORDS SUMMARY | 2022-07-30 19:36 | XMS_ITS | Encounter Summary ---
:1945 Author Organization [facility] Address [address] [place] [address]. [place] [address] Care Team Providers Name Role Phone Unavailable Primary Care Provider Unavailable Encounter Details Date Type Department Care Team Description 01/14/2009 Office Visit-[facility] INTERFACE [facility] DEPT Provider, [facility] Nurs e Social History Tobacco Use Types Packs/Day Years Used Date Smoking Tobacco: Never Alcohol Use Standard Drinks/Week Comments Not Asked 0 (1 standard drink = 0.6 oz pure alcoho l) Sex Assigned at Date Recorded Female 12/20/2018 4:10 PM CDT documented as of this encounter Progress Notes Provider, [facility] Nurse - 01/14/2009 8:00 AM CDT Paving And Surfacing Labourer: Margot Dudley Status: Final Encounter: 14 Jan 2009 Type: Rooming Note Reason For Visit Pre Visit Planning Document - Do not use for clinical treatment Pt. called/ unable to leave message, voicemail full. Patient presents today for hemorrhoid consultation. cc: enrrique-anal itching, rectal bleeding on tissue, discomfort after bowel movements. Do you have any other appointments, tests or procedures within the [facility] system for this same day?no. Pain Eval Current history of pain associated with this visit is denied. Active Problems Osteoarthritis Of The Hip (715.95) Rest Tremor - Head Symptomatic Menopause (627.2). Personal Hx Behavioral history: No caffeine use and no tobacco use. Alcohol: Not using alcohol. Home environment: No secondhand tobacco smoke in home. Family Hx Maternal history of: Cancer colon cancer. Allergies No Known Drug Allergy. Current Meds Med list offered and patient declined. Multivitamins Capsule;TAKE 1 CAPSULE DAILY.; RPT Mucinex [...] RPT Proctofoam HC 1-1 % FOAM;USE DIRECTED.; Rx. Signature Electronically Signed By: Kalpana Gutiérrez LPN; 01/10/2009 2:52 PM FLY RAISER LOCKSTITCH. Electronically Signed By: Margot Dudley ; 01/14/2009 8:20 AM FLY RAISER LOCKSTITCH. documented in this encounter Plan of Treatment Upcoming Encounters Date Type Specialty Care Team Description 09/10/2022 Office Visit Internal Medicine LogeaisMargot MD [address] [place] [phone] (Wo rk) documented as of this encounter Visit Diagnoses Not on filedocumented in this encounter
--- OUTSIDE RECORDS SUMMARY | 2022-07-30 19:36 | XMS_ITS | Encounter Summary ---
:1945 Author Organization [facility] Address [address] [place] [address]. [place] [address] Care Team Providers Name Role Phone Unavailable Primary Care Provider Unavailable Encounter Details Date Type Department Care Team Description 05/24/2009 Office Visit-[facility] INTERFACE [facility] DEPT Unknown, Provider Social History Tobacco Use Types Packs/Day Years Used Date Smoking Tobacco: Never Alcohol Use Standard Drinks/Week Comments Not Asked 0 (1 standard drink = 0.6 oz pure alcoho l) Sex Assigned at Date Recorded Female 12/20/2018 4:10 PM CDT documented as of this encounter Progress Notes Unknown, Provider - 05/24/2009 1:03 PM CDT Window Sash Installer: Ann Marie Maloney Status: Final - Signature Encounter: 24 May 2009 Type: Chart Note pt calls today stating that she would like to set up a follow up for hemroidal bacnding with Dr. harmon- when she returns from her leave-pt transferred to crew scheduler. Electronically signed by:Ann Marie Maloney RN May 24 2009 1:06PM RACKING TECHNICIAN documented in this encounter Plan of Treatment Upcoming Encounters Date Type Specialty Care Team Description 09/10/2022 Office Visit Internal Medicine LogMargot sadler MD [address] [address] (Wo rk) documented as of this encounter Visit Diagnoses Not on filedocumented in this encounter
--- OUTSIDE RECORDS SUMMARY | 2022-07-30 19:36 | XMS_ITS | Encounter Summary ---
:1945 Author Organization [facility] Address [address] [place] [address] Care Team Providers Name Role Phone Lisseth Vang MD Primary Care Provider Mehreen Johnston MD PhD Primary Care Provider [phone] Encounter Details Date Type Department Care Team Description 10/05/2008 Historic Results INTERFACED REPORT Interface, Transcri MD [place] Social History Tobacco Use Types Packs/Day Years Used Date Smoking Tobacco: Never Assessed Sex Assigned at Date Recorded Female 12/20/2018 4:10 PM CDT documented as of this encounter Plan of Treatment Upcoming Encounters Date Type Specialty Care Team Description 09/10/2022 Office Visit Internal Medicine LogeaisMargot MD [address] [place] [phone] (Wo rk) documented as of this encounter Procedures Procedure Name Priority Date/Time Associated Diagnosis Comme nts EKG 12 LEAD Routine 10/05/2008 11:54 AM Results for this OUTSIDE MACHINIST procedure are i n the results section . documented in this encounter Results EKG 12 LEAD (10/05/2008 11:54 AM OUTSIDE MACHINIST) [facility] Method Time Signature Ventricular Rate 62 BPM RADIOLOGY RESULTS Atrial Rate 62 BPM RADIOLOGY RESULTS NM Interval 152 ms RADIOLOGY RESULTS QRS Duration 102 ms RADIOLOGY RESULTS QT 428 ms RADIOLOGY RESULTS QTc 434 ms RADIOLOGY RESULTS P [place] 29 degrees RADIOLOGY RESULTS R AXIS 21 degrees RADIOLOGY RESULTS T [place] 55 degrees RADIOLOGY RESULTS Interpretation Sinus rhythm RADIOLOGY ECG Normal ECG RESULTS No previous ECGs available Study patient: this is a computer generated report only Specimen Anatomical Collection Method Collection Time Receive d Time (Source) Location / / Volume Laterality 10/05/2008 11:54 10/09/2008 AM OUTSIDE MACHINIST 10:05 AM OUTSIDE MACHINIST Transcripton Interface ECG ORDERABLES Performing Organization Address City/State/ZIP Code Phon e Number RADIOLOGY RESULTS documented in this encounter Visit Diagnoses Not on filedocumented in this encounter Care Teams Truck Sales Manager Relationship Specialty Start Date End Date Lisseth Vang MD PCP - General 02/05/11 03/18/[address] [place] [address] Mehreen Johnston MD PhD PCP - General Family Practice 03/19/11 11/15/11 documented as of this encounter
--- OUTSIDE RECORDS SUMMARY | 2022-07-30 19:36 | XMS_ITS | Encounter Summary ---
:1945 Author Organization [facility] Address [address] [place] [address]. [place] [address] Care Team Providers Name Role Phone Unavailable Primary Care Provider Unavailable Encounter Details Date Type Department Care Team Description 04/02/2009 Office Visit-[facility] INTERFACE [facility] DEPT Unknown, Provider Social History Tobacco Use Types Packs/Day Years Used Date Smoking Tobacco: Never Alcohol Use Standard Drinks/Week Comments Not Asked 0 (1 standard drink = 0.6 oz pure alcoho l) Sex Assigned at Date Recorded Female 12/20/2018 4:10 PM CDT documented as of this encounter Progress Notes Unknown, Provider - 04/02/2009 10:30 AM CDT Community Nutrition Educator: Raquel Velasco Status: Final Encounter: 02 Apr 2009 Type: Rooming Note Reason For Visit YIMI GARCIA is a 63 year old female who presents today for a Tremor Evaluation. Do you have any other appointments, tests or procedures within the [facility] system for this same day? Yes; ENT. Pain Eval Current history of pain associated with this visit is denied. Personal Hx Behavioral history: No tobacco use. Home environment: No secondhand tobacco smoke in home. Vital Signs Recorded by Raquel Velasco on 02 Apr 2009 10:45 AM BP:145/70, LUE, Sitting, HR: 74 b/min, Height: 67 in, Weight: 168.0 lb, BMI: 26.3 kg/m2. Allergies No Known Drug Allergy. Current Meds [...] Foam;USE DIRECTED.; Rx AAA-MED RECONCILE;per patient; RPT. Signature Signed By: Raquel Velasco ; 04/02/2009 10:47 AM FREIGHT SORTER. documented in this encounter Plan of Treatment Upcoming Encounters Date Type Specialty Care Team Description 09/10/2022 Office Visit Internal Medicine Margot Branham MD [address] [place] [phone] (Wo rk) documented as of this encounter Visit Diagnoses Not on filedocumented in this encounter
--- OUTSIDE RECORDS SUMMARY | 2022-07-30 19:36 | XMS_ITS | Encounter Summary ---
:1945 Author Organization [facility] Address [address] [place] [address]. [place] [address] Care Team Providers Name Role Phone Unavailable Primary Care Provider Unavailable Encounter Details Date Type Department Care Team Description 11/12/2008 Office Visit-[facility] INTERFACE [facility] DEPT Provider, [facility] Nurs e Social History Tobacco Use Types Packs/Day Years Used Date Smoking Tobacco: Never Assessed Sex Assigned at Date Recorded Female 12/20/2018 4:10 PM CDT documented as of this encounter Progress Notes Provider, [facility] Nurse - 11/12/2008 12:37 PM CST Hogshead Builder: Katherine, Rita Status: Final - Signature Encounter: 12 Nov 2008 Type: Nurse Note pt LM on [facility] nurse line req. cb from Dr. Vang with recommendations on Colon specialist and Sinus specialist/tasked Dr. Vang Electronically signed by:Tiff uMrphy Nov 12 2008 12:38PM METER TESTER documented in this encounter Plan of Treatment Upcoming Encounters Date Type Specialty Care Team Description 09/10/2022 Office Visit Internal Medicine Margot Branham MD [address] [phone] (Wo rk) documented as of this encounter Visit Diagnoses Not on filedocumented in this encounter
--- OUTSIDE RECORDS SUMMARY | 2022-07-30 19:36 | XMS_ITS | Encounter Summary ---
:1945 Author Organization [place] Address [address] [place] [address]. [place] [address] Care Team Providers Name Role Phone Unavailable Primary Care Provider Unavailable Reason for Visit Reason Comments Urinary Problem urinary pain for 6 days was treated for yeast last wednesday Urgent Care Encounter Details Date Type Department Care Team Description 06/21/[address] [facility] Kishore Weber, UTI ([facility] [place] Akua Short, Inf ection) ([facility] [place]) [address] [place] [phone] Social History Tobacco Use Types Packs/Day Years Used Date Smoking Tobacco: Never Alcohol Use Standard Drinks/Week Comments Not Asked 0 (1 standard drink = 0.6 oz pure alcoho l) Sex Assigned at Date Recorded Female 12/20/2018 4:10 PM CDT documented as of this encounter Last Filed Vital Signs Vital Sign Reading Time Taken Comments Blood Pressure 120/80 06/21/2009 6:01 PM CDT Pulse 68 06/21/2009 6:01 PM CDT Temperature 37.1 ??C (98.8 ??F) 06/21/2009 6:01 PM CDT Respiratory Rate 16 06/21/2009 6:01 PM CDT Oxygen Saturation - - Inhaled Oxygen Concentration - - Weight - - Height - - Body Mass Index - - documented in this encounter Progress Notes Akua Tam - 06/21/2009 6:08 PM CDT SUBJECTIVE: Ramona Sheikh is a 63 year old female who complains of urinary urgency and dysuria x 6days, without flank pain, fever, chills, or abnormal vaginal discharge or bleeding. She was recentlydiagnosed and treated for yeast vaginitis. OBJECTIVE: Appears well, in no apparent distress. Vital signs are normal. The abdomen is soft without tenderness, guarding, mass, rebound or organomegaly. No CVA tenderness. Urine dipstick: unable. Micro exam: 5-10 WBC's per HPF, 0-2 RBC's per HPF and few bacteria. UC is pending. ASSESSMENT: UTI uncomplicated without evidence of pyelonephritis PLAN: Treatment per orders - also push fluids, may use Pyridium OTC prn. Call or return to clinic prn if these symptoms worsen or fail to improve as anticipated. Akua Novak MD documented in this encounter Nursing Notes 06/21/2009 6:00 PM CDT >> GRCAE DIAZ Fri Jun 21, 2009 6:02 PM Ramona Sheikh is a 63 year old female Patient presents with: Urinary Problem - urinary pain for 6 days was treated for yeast last wednesday Urgent Care Location:[place] When did you notice it?: last wednesday Fever: No. Initial Vital Signs BP 120/80 Pulse 68 Temp (Src) 98.8 ??F (37.1 ??C) (Oral) Resp 16 BP completed using cuff size: regular Grace Diaz ma documented in this encounter Plan of Treatment Upcoming Encounters Date Type Specialty Care Team Description 09/10/2022 Office Visit Internal Medicine Margot Branham MD [address] [id number] (Wo rk) documented as of this encounter Procedures Procedure Name Priority Date/Time Associated Diagnosis Comme nts HCL CULTURE, URINE Routine 06/21/2009 6:11 PM UTI (Urinary Tra ct Results for this CDT Infection) procedure are i n the results section. CL AFF MICRO Routine 06/21/2009 6:11 PM UTI (Urinary Tract Res ults for this EXAM-URINE CDT Infection) procedure are i n the results section. documented in this encounter Results URINE CULTURE (06/21/2009 6:11 PM CDT) [facility] gist Method Time Signature Specimen Midstream Urine RAMILA Description [place] Culture Micro >100,000 colonies/mL Klebsevie lla pneumoniae CORRECTED ON 06/24 AT 1119: PREVIOUSLY [place] REPORTED >100,000 colonies/mL Escherichia coli [facility] Report status FINAL [place] 06/24/2009 [facility] Specimen Anatomical Collection Method Collection Time Receive d Time (Source) Location / / Volume Laterality 06/21/2009 6:11 PM 9 6:27 CDT PM CDT Organism Antibiotic Method Susceptibility >100,000 colonies/ml Amoxicillin/Clav Susceptibl e escherichia coli (sarah) >100,000 colonies/ml Ampicillin 8 Resistant escherichia coli (sarah) >100,000 colonies/ml Cefazolin >=64 Resist ant escherichia coli (sarah) >100,000 colonies/ml Cefoxitin >=64 Resist ant escherichia coli (sarah) >100,000 colonies/ml Ceftriaxone <=1 Suscept ible escherichia coli (sarah) >100,000 colonies/ml Ciprofloxacin <=0.25 Susc eptible escherichia coli (sarah) >100,000 colonies/ml Gentamicin <=1 Suscept ible escherichia coli (sarah) >100,000 colonies/ml Levofloxacin <=0.12 Susc eptible escherichia coli (sarah) >100,000 colonies/ml Nitrofurantoin 64 Intermed iate escherichia coli (sarah) >100,000 colonies/ml Tobramycin <=1 Suscept ible escherichia coli (sarah) >100,000 colonies/ml Trimethoprim/Sulfamethoxazole <=1/19 Susceptible escherichia coli (sarah) >100,000 colonies/ml Ampicillin/Sulbactam 8 Susc eptible escherichia coli (sarah) >100,000 colonies/ml Cefotaxime (meningitis) Jacque ceptible escherichia coli (sarah) >100,000 colonies/ml Piperacillin/Tazo <=4 Susce ptible escherichia coli (sarah) >100,000 colonies/ml Amoxicillin/Clav Susceptibl e klebsiella pneumoniae corrected on 06/24 at 1119: previously reported as >100,000 colonies/ml escherichia coli (sarah) >100,000 colonies/ml Ampicillin 8 Resistant klebsiella pneumoniae corrected on 06/24 at 1119: previously reported as >100,000 colonies/ml escherichia coli (sarah) >100,000 colonies/ml Cefazolin >=64 Resist ant klebsiella pneumoniae corrected on 06/24 at 111: previously reported as >100,000 colonies/ml escherichia coli (sarah) >100,000 colonies/ml Cefoxitin >=64 Resist ant klebsiella pneumoniae corrected on 06/24 at 111: previously reported as >100,000 colonies/ml escherichia coli (sarah) >100,000 colonies/ml Ceftriaxone <=1 Suscept ible klebsiella pneumoniae corrected on 06/24 at 111: previously reported as >100,000 colonies/ml escherichia coli (sarah) >100,000 colonies/ml Ciprofloxacin <=0.25 Susc eptible klebsiella pneumoniae corrected on 06/24 at 1118: previously reported as >100,000 colonies/ml escherichia coli (sarah) >100,000 colonies/ml Gentamicin <=1 Suscept ible klebsiella pneumoniae corrected on 06/24 at 1118: previously reported as >100,000 colonies/ml escherichia coli (sarah) >100,000 colonies/ml Levofloxacin <=0.12 Susc eptible klebsiella pneumoniae corrected on 06/24 at 1118: previously reported as >100,000 colonies/ml escherichia coli (sarah) >100,000 colonies/ml Nitrofurantoin 64 Intermed iate klebsiella pneumoniae corrected on 06/24 at 1118: previously reported as >100,000 colonies/ml escherichia coli (sarah) >100,000 colonies/ml Tobramycin <=1 Suscept ible klebsiella pneumoniae corrected on 06/24 at 1118: previously reported as >100,000 colonies/ml escherichia coli (sarah) >100,000 colonies/ml Trimethoprim/Sulfamethoxazole <=1/19 Susceptible klebsiella pneumoniae corrected on 06/24: previously reported as >100,000 colonies/ml escherichia coli (sarah) >100,000 colonies/ml Ampicillin/Sulbactam 8 Susc eptible klebsiella pneumoniae corrected on 06/24 at 1118: previously reported as >100,000 colonies/ml escherichia coli (sarah) >100,000 colonies/ml Cefotaxime (meningitis) Jacque ceptible klebsiella pneumoniae corrected on 06/24 at 111: previously reported as >100,000 colonies/ml escherichia coli (sarah) >100,000 colonies/ml Piperacillin/Tazo <=4 Susce ptible klebsiella pneumoniae corrected on 06/24 at 1119: previously reported as >100,000 colonies/ml escherichia coli (sarah) Akua Weber MD LABORATORY Performing Organization Address City/[facility]/ZIP Code Phon e Number M [facility] [address] [place] [address] [facility] (ABNORMAL) MICRO EXAM-URINE (06/21/2009 6:11 PM CDT) athologist Signature WBC Urine 5-10 (A) 0 - 2 /HPF [facility] RBC Urine O - 2 0 - 2 /HPF [facility] Squamous EPI Few FEW /LPF [facility] Bacteria Urine Few (A) NEG /HPF [facility] Amorphous Few (A) NEG /HPF [place] [facility] [place] Specimen Anatomical Collection Method Collection Time Receive d Time (Source) Location / / Volume Laterality 06/21/2009 6:11 PM 9 6:16 CDT PM CDT Akua Weber MD LABORATORY Performing Organization Address City/State/ZIP Code Phon e Number [place] [address] [place] [address] [place] [address] [facility] documented in this encounter Visit Diagnoses Diagnosis UTI (urinary tract infection) - Primary Urinary tract infection, site not specif ied documented in this encounter
--- OUTSIDE RECORDS SUMMARY | 2022-07-30 19:36 | XMS_ITS | Encounter Summary ---
:1945 Author Organization [place] Address [address] [place] [address]. [place] [address] Care Team Providers Name Role Phone Unavailable Primary Care Provider Unavailable Reason for Visit Reason Comments Urgent Care UTI Symptoms of UTI since this m darrius. Encounter Details Date Type Department Care Team Description 06/16/2009 Office Visit [facility] Kishore Weber, Vaginitis, Yeast (Primary Dx); [facility] [place] Akua Short, Dys uria; Mercedes OLIVEROS Vaginitis; [address] [facility] [address] [place] [address] Need for Prophylactic Vaccination and In oculation Against [place] [phone] [phone] Social History Tobacco Use Types Packs/Day Years Used Date Smoking Tobacco: Never Alcohol Use Standard Drinks/Week Comments Not Asked 0 (1 standard drink = 0.6 oz pure alcoho l) Sex Assigned at Date Recorded Female 12/20/2018 4:10 PM CDT documented as of this encounter Last Filed Vital Signs Vital Sign Reading Time Taken Comments Blood Pressure 128/80 06/16/2009 4:37 PM CDT Pulse - - Temperature 37 ??C (98.6 ??F) 06/16/2009 4:37 PM CDT Respiratory Rate - - Oxygen Saturation - - Inhaled Oxygen Concentration - - Weight - - Height - - Body Mass Index - - documented in this encounter Progress Notes Akua Tam - 06/16/2009 4:42 PM CDT SUBJECTIVE: Ramona Sheikh is a 63 year old female who complains of urinary urgency and dysuria x 1day, without flank pain, fever, chills, or abnormal vaginal discharge or bleeding. She notes some vaginal itching lately. Not worried about STDs. Also, wants the flu shot. OBJECTIVE: Appears well, in no apparent distress. Vital signs are normal. The abdomen is soft without tenderness, guarding, mass, rebound or organomegaly. : mildly atrophic genitalia, white vaginal discharge, no lesions, normal cervix and uterus, adnexae are not palpable. Urine dipstick: unable. Micro exam: 0-2 WBC's per HPF, 0-2 RBC's per HPF and few bacteria. UC is pending. Wet prep: yeast. ASSESSMENT: Yeast vaginitis and Influenza immunization PLAN: Treatment per orders. Call or return to clinic prn if these symptoms worsen or fail to improveas anticipated. Akua Novak MD documented in this encounter Nursing Notes 06/16/2009 4:15 PM CDT >> LUPIS Sparks Jun 16, 2009 4:39 PM Patient presents with: Urgent Care UTI - Symptoms of UTI since this morning. Initial BP 128/80 Temp (Src) 98.6 ??F (37 ??C) (Oral) There is no height or weight on file to calculate BMI.. 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 HCL CULTURE, URINE Routine 06/16/2009 4:34 PM Dysuria Res ults for this CDT procedure are i n the results section. CL AFF MICRO Routine 06/16/2009 4:34 PM Results f or this EXAM-URINE CDT procedure are i n the results section. documented in this encounter Results A WET PREP (06/16/2009 5:03 PM CDT) [facility] gist Method Time Signature Specimen Vagina [facility] Wet Prep Yeast seen [place] No clue cells seen [place] No Trichomonas seen MUIR Report status FINAL [place] 06/16/2009 [place] Specimen Anatomical Collection Method Collection Time Receive d Time (Source) Location / / Volume Laterality 06/16/2009 5:03 PM 9 5:08 CDT PM CDT Akua Weber MD LABORATORY Performing Organization Address City/[facility]/ZIP Code Phon e Number [place] [address] [place] [address] [place] [address] [facility] URINE CULTURE (06/16/2009 4:34 PM CDT) [facility] Method Time Signature Specimen Midstream [facility] Urine [place] Culture Micro <10,000 [place] colonies/mL [facility] species present, probable perineal contamination . Report status FINAL [place] 06/18/2009 [facility] Specimen Anatomical Collection Method Collection Time Receive d Time (Source) Location / / Volume Laterality 06/16/2009 4:34 PM 9 4:50 CDT PM CDT Akua Weber MD LABORATORY Performing Organization Address City/[facility]/ZIP Code Phon e Number M [facility] [address] [place] [address] [phone] [facility] (ABNORMAL) MICRO EXAM-URINE (06/16/2009 4:34 PM CDT) P athologist Signature WBC Urine O - 2 0 - 2 /HPF [facility] RBC Urine O - 2 0 - 2 /HPF [facility] Squamous EPI Few FEW /LPF [facility] Bacteria Urine Few (A) NEG /HPF [facility] Specimen Anatomical Collection Method Collection Time Receive d Time (Source) Location / / Volume Laterality 06/16/2009 4:34 PM 9 4:39 CDT PM CDT Akua Weber MD LABORATORY Performing Organization Address City/State/ZIP Code Phon e Number [place] [address] [place] [address] [place] [address] [facility] documented in this encounter Visit Diagnoses Diagnosis Vaginitis, yeast - Primary Candidiasis of vulva and vagina Dysuria Vaginitis Vaginitis and vulvovaginitis, unspecifie d Need for prophylactic vaccination and in oculation against influenza documented in this encounter
--- OUTSIDE RECORDS SUMMARY | 2022-07-30 19:36 | XMS_ITS | Encounter Summary ---
:1945 Author Organization [place] Address [address] [place] [address]. [place] [address] Care Team Providers Name Role Phone Unavailable Primary Care Provider Unavailable Encounter Details Date Type Department Care Team Description 04/29/2009 Office Visit-[facility] Colon and Rectal Surgery Fauzia Hamilton MD [facility] [place] [address] [facility] [address], Clinic [address] [place] [address] Social History Tobacco Use Types Packs/Day Years Used Date Smoking Tobacco: Never Alcohol Use Standard Drinks/Week Comments Not Asked 0 (1 standard drink = 0.6 oz pure alcoho l) Sex Assigned at Date Recorded Female 12/20/2018 4:10 PM CDT documented as of this encounter Progress Notes Theresa Hamilton - 04/29/2009 11:45 AM CDT Straightener Hand: Theresa Hamilton Status: Final - Signature Encounter: 29 Apr 2009 Type: Colon Rectal Visit Colon & Rectal Surgery Clinic Department of Surgery [place] Mail Code [address] [facility] [place] [address] [facility] First Floor, Clinic [address] [place] [address] RE: Ramona Sheikh : 1945 [place]: 04/29/2009 OUTPATIENT VISIT NOTE Ms. Sheikh returns today for perianal discomfort problems. She underwent a banding when I last sawher in January for mucosal prolapse. She found now that the bleeding that she has had in the past has completely resolved, however, at times she still has difficulty getting good hygiene. She states thatshe has tissue that stays outside of her rectum, and this has not changed. She did have a colonoscopy in 2006. We got the records from this, and it was completely normal. Her mother has rectal cancer that was diagnosed and found to be metastatic to her lungs, and she within the last month. PHYSICAL EXAMINATION: On physical examination she is in no acute distress. Her abdomen is soft, nontender and nondistended. Perianal examination was normal. Perianal skin; an anterior small tag and some ridging along the right anterior aspect of the perineum. There is no excoriation. Digital rectal examination with good tone. No palpable masses. Anoscopy with minimal internal hemorrhoidal disease. IMPRESSION AND PLAN: 1. This is a 63-year-old woman with ongoing perinealia symptoms,a family history of colorectal cancer, a longstanding history of constipation. The patient has been on laxative therapy. She will continue with fiber supplementation with MiraLax which has helped her substantially. The patient has a family history of colorectal cancer. We have reviewed her colonoscopy results [id number]. She will get a colonoscopy in one year's duration in 2009. I gave her information for scheduling. She will contact us if she decides to set this up elsewhere. Mucosal prolapse and internal hemorrhoidal disease. Today I did see external tag and some ridging ofthe perianal skin. Because of this and the complaints she has of perianal irritation, I gave her information on Balneol solution and suggested at this point only conservative management. I do not thinkthat her symptoms nor her examination warrant at this time repeat banding although this could be cons idered maybe at the time of her colonoscopy in one year's duration. Total time with patient was 15 minutes. Over half of it was spent counseling the patient. Theresa Hamilton M.D. [facility] Division of Colon and Rectal Surgery Department of Surgery [id number] cc: Lisseth Estes M.D. [facility] О[facility] [address] [address] DD 04/29/2009 Electronically signed by:Theresa Hamilton M.D. May 14 2009 11:15PM ACADEMIC COUNSELOR Author documented in this encounter Plan of Treatment Upcoming Encounters Date Type Specialty Care Team Description 09/10/2022 Office Visit Internal Medicine LogeaisMargot MD [address] [place] [phone] (Wo rk) documented as of this encounter Visit Diagnoses Not on filedocumented in this encounter
--- OUTSIDE RECORDS SUMMARY | 2022-07-30 19:36 | XMS_ITS | Encounter Summary ---
:1945 Author Organization [place] Address [address] [place] [address]. [place] [address] Care Team Providers Name Role Phone Unavailable Primary Care Provider Unavailable Reason for Visit Reason Comments Urgent Care Sinus Problem Encounter Details Date Type Department Care Team Description 12/10/2008 Office Visit [facility] Parul Armas [facility] [place] FRANCIS Devlin Sinusit is (Primary [place] Dx) [address] [place] [address] Social History Tobacco Use Types Packs/Day Years Used Date Smoking Tobacco: Never Alcohol Use Standard Drinks/Week Comments Not Asked 0 (1 standard drink = 0.6 oz pure alcoho l) Sex Assigned at Date Recorded Female 12/20/2018 4:10 PM CDT documented as of this encounter Last Filed Vital Signs Vital Sign Reading Time Taken Comments Blood Pressure 140/70 12/10/2008 6:15 PM CDT Pulse 76 12/10/2008 6:15 PM CDT Temperature 37.2 ??C (98.9 ??F) 12/10/2008 6:15 PM CDT Respiratory Rate 12 12/10/2008 6:15 PM CDT Oxygen Saturation - - Inhaled Oxygen Concentration - - Weight - - Height - - Body Mass Index - - documented in this encounter Progress Notes Trina Garcia - 12/10/2008 6:19 PM CDT SUBJECTIVE: Ramona Sheikh is a 63 year old female presenting with a chief complaint of Upper Respiratory/ENT symptoms: Symptoms include: nasal congestion and facial pain/pressure Onset how long ago? Cold since August but sinus symptoms started today. Was treated for a sinus infection in October. Was given pcn for strep also in November Course of illness is: worsening. Hard to breath when laying down. Severity: moderate Treatment measures tried: OTC meds. Predisposing factors include recent illness. ROS: CONSTITUTIONAL:POSITIVE for fatigue and fever of 101 this am EYES: NEGATIVE for vision changes or irritation ENT/MOUTH: POSITIVE for ear pressure bilateral, nasal congestion, postnasal drainage, rhinorrhea-purulent, sinus pressure and sore throat RESP:POSITIVE for cough-productive OBJECTIVE BP 140/70 Pulse 76 Temp (Src) 98.9 ??F (37.2 ??C) (Oral) Resp 12 GENERAL: Pleasant and interactive. Mild distress. HEENT: Normocephalic, atraumatic. PEERRLA, EOMI. Scleras, lids normal and conjunctivae slightly erythematous. Ear canals erythematous and TM's bulging. Nose with thick discharge. Oropharynx erythematous. Sinus tenderness to palpation present L>R NECK: supple and free of adenopathy or masses. CHEST: clear, no wheezing or rales. Normal symmetric air entry throughout both lung dumont. HEART: S1 and S2 normal, no murmurs, clicks, gallops or rubs. Regular rate and rhythm. ASSESSMENT/PLAN 461.0 Acute Maxillary Sinusitis (primary encounter diagnosis) Plan: AUGMENTIN 875-125 MG OR TABS To take medication as directed and to monitor for change in symptoms. If symptoms worsen or show no improvement by 12/12/08 to contact PCP for further evaluation Parul Armas, ABLE BODIED SEAMAN-BC documented in this encounter Nursing Notes 12/10/2008 6:15 PM CDT >> TRINA GARCIA Mon Dec 10, 2008 6:19 PM Patient presents with: Urgent Care Sinus Problem Initial BP 140/70 Pulse 76 Temp (Src) 98.9 ??F (37.2 ??C) (Oral) Resp 12 There is no height orweight on file to calculate BMI.. BP completed using cuff size: regular Trina Garcia R.N. documented in this encounter Plan of Treatment Upcoming Encounters Date Type Specialty Care Team Description 09/10/2022 Office Visit Internal Medicine LogeaMargot man MD [address] [address] (Wo rk) documented as of this encounter Visit Diagnoses Diagnosis Acute maxillary sinusitis - Primary documented in this encounter
--- OUTSIDE RECORDS SUMMARY | 2022-07-30 19:36 | XMS_ITS | Encounter Summary ---
:1945 Author Organization [facility] Address [address] [place] [address]. [place] [address] Care Team Providers Name Role Phone Unavailable Primary Care Provider Unavailable Encounter Details Date Type Department Care Team Description 02/04/2009 Office Visit-[facility] Ear, Nose and Throat Ismael Brewer MD Clinic [address] [facility]PART[facility] 8th Floor, Clinic [address]A [address] [place] [address] [address] Social History Tobacco Use Types Packs/Day Years Used Date Smoking Tobacco: Never Alcohol Use Standard Drinks/Week Comments Not Asked 0 (1 standard drink = 0.6 oz pure alcoho l) Sex Assigned at Date Recorded Female 12/20/2018 4:10 PM CDT documented as of this encounter Progress Notes Honey Brewer - 02/04/2009 8:00 AM CDT Director Of Business Services: Honey Brewer Status: Final - Signature Encounter: 04 Feb 2009 Type: ENT Visit Department of Otolaryngology--Head and Neck Surgery [place] Mail Code 396 [address] [place] [address] Office: [address] RE: Ramona Sheikh : 1945 MUSA: 02/04/2009 HISTORY OF PRESENT ILLNESS: Ramona Sheikh is a very pleasant 63-year-old woman. She has had chronic sinus issues for about 20 years. She describes at least three infections per year requiring antibiotic therapy. She has had up to five to six infections per year. Her symptoms are worse when she is working in a basement environment. 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 Her symptoms are better when she is in [place]. This past December she had a severe infection. She cultured positive for strep tonsillitis. She had sinus infection and ear infection at that time. MEDICATIONS: Medications included chronic use of Astelin, Atarax which is a hydroxy hydrochloride, Sudafed and guaifenesin. She also is using Mucinex nasal spray. REVIEW OF SYSTEMS: Her review of systems is negative for allergies. She has undergone allergy testing in the past which was clear. She has had a CT scan of her sinuses before. She was told that the CT was clear. She denies any GI symptoms such as reflux or indigestion. She denies any lower respiratorysymptoms such as wheezing, coughing or shortness of breath. She has undergone turbinate cautery in the past. Past history is also significant for , hip replacement. Review of systems is otherwise quite unremarkable other than mild arthritis. The 12-point review of systems is otherwise negative except for ear, nose and throat symptoms as described in the History of Present Illness, and intermittent high blood pressure which she feels is associated with Sudafed use. PHYSICAL EXAMINATION: Examination today reveals a healthy adult female in no acute distress. Head, face and scalp are normal. She is alert and oriented x3. Ears demonstrate normal canals, auricles and tympanic membranes. External nose is straight. Intranasally, she has clear rhinorrhea, mild mucosal irritation. She is well decongested, even prior to application of topical anesthetic/decongestant solution. She has been using her Mucinex nasal spray. Oral cavity and oropharynx is slightly dry, but no lesions of the mucous membranes are evident on the tongue, palate or buccal mucosa. Neck is without ad enopathy, thyromegaly or salivary gland enlargement. I did perform nasal endoscopy on Ramona. The posterior nose was carefully examined. Middle meatus was examined. There is no evidence of inflammation in either middle meatus. The posterior secretions are clear. Her nasal passages are wide open. Nasopharynx is clear as well. ASSESSMENT AND PLAN: My assessment is rhinitis, triggered by environmental factors. With regards to her current therapy, she is overusing medications. She is on an antihistamine nasal spray, an oral antihistamine. She has been using decongestants orally and with sprays, and she is taking guaifenesin to thin her mucus. I explained to her that these medications counteract side effects of each other andthat she is using too much medication to treat her symptoms at this time. I instructed her to stop the Atarax, stop the Sudafed, stop the guaifenesin and the Mucinex nasal spray. For now, she can continue using the Astelin nasal spray, but she will start doing saline irrigations and saline spray in her nose. I will see her back in one month to see how she is doing. She does complain of nasal blockageat night. It was improved by previous turbinate cautery. In order to address her nasal blockage at night, we may need to consider repeat turbinate cautery in the future. We will see how she is doing in a month. Honey Brewer M.D. Otolaryngology-Head & Neck Surgery HCB:tej DD 02/04/2009 Electronically signed by:Honey Brewer MD Feb 05 2009 8:21AM MATERIAL ANALYST documented in this encounter Plan of Treatment Upcoming Encounters Date Type Specialty Care Team Description 09/10/2022 Office Visit Internal Medicine Margot Branham MD [address] [place] [address] [phone] (Wo rk) documented as of this encounter Visit Diagnoses Not on filedocumented in this encounter
--- OUTSIDE RECORDS SUMMARY | 2022-07-30 19:36 | XMS_ITS | Encounter Summary ---
:1945 Author Organization [facility] Address [address] [place] [address]. [place] [address] Care Team Providers Name Role Phone Unavailable Primary Care Provider Unavailable Encounter Details Date Type Department Care Team Description 12/03/2008 Office Visit-[facility] DE[facility] Unknown, Provider Social History Tobacco Use Types Packs/Day Years Used Date Smoking Tobacco: Never Assessed Sex Assigned at Date Recorded Female 12/20/2018 4:10 PM CDT documented as of this encounter Progress Notes Unknown, Provider - 12/03/2008 3:00 PM CST Instructional Writer: Obdulio Delacruz Status: Final Encounter: 03 Dec 2008 Type: Rooming Note Reason For Visit PATIENT RESCHEDULED THIS APPOINTMENT TO March Pre Visit Planning Document Tremor Are you diabetic? No Do you have any other appointments, tests or procedures within the [facility] system for this same day? No. Active Problems Osteoarthritis Of The Hip (715.95) [...] TABS;TAKE 1 TABLET EVERY 12 HOURS; RPT Prometrium 100 MG Capsule;TAKE 1 CAPSULE DAILY; RPT Astelin 137 MCG/SPRAY Solution;USE DIRECTED.; Rx AAA-MED RECONCILE;Med Reconcile; RPT Proctofoam HC 1-1 % FOAM;USE DIRECTED.; Rx Estrace 0.1 MG/GM Cream;INSERT 1 APPLICATOR DIRECTED DIRECTED insert 1/4 applicator intravaginally 3 times/week; Rx HydrOXYzine HCl 25 MG Tablet;TAKE 1 TABLET 4 TIMES DAILY NEEDED.; Rx Sudafed 12 Hour TBCR;TAKE 1 TABLET EVERY 12 HOURS DAILY.; RPT Guaifenesin 400 MG Tablet;TAKE 1 TABLET EVERY 12 HOURS; RPT Vivelle-Dot 0.025 MG/24HR Patch Biweekly;APPLY 1 PATCH TWICE WEEKLY DIRECTED.; Rx. Signature Electronically Signed By: Obdulio Delacruz CMA; 12/04/2008 3:06 PM REACTOR OPERATOR. documented in this encounter Plan of Treatment Upcoming Encounters Date Type Specialty Care Team Description 09/10/2022 Office Visit Internal Medicine LogeaisMargot MD [address] [place] [phone] (Wo rk) documented as of this encounter Visit Diagnoses Not on filedocumented in this encounter
--- OUTSIDE RECORDS SUMMARY | 2022-07-30 19:36 | XMS_ITS | Encounter Summary ---
:1945 Author Organization [facility] Address [address] [place] [address]. [place] [address] Care Team Providers Name Role Phone Unavailable Primary Care Provider Unavailable Encounter Details Date Type Department Care Team Description 07/22/2009 Office Visit-[facility] Colon and Rectal Surgery Fauzia Hamilton MD [facility] [address] [facility] Building [address] 1st Floor, Clinic [address] [place] [address] Social History Tobacco Use Types Packs/Day Years Used Date Smoking Tobacco: Never Alcohol Use Standard Drinks/Week Comments Not Asked 0 (1 standard drink = 0.6 oz pure alcoho l) Sex Assigned at Date Recorded Female 12/20/2018 4:10 PM CDT documented as of this encounter Progress Notes Theresa Hamilton - 07/22/2009 8:00 AM CDT Music Leader: Theresa Hamilton Status: Final - Signature Encounter: 22 Jul 2009 Type: Colon Rectal Visit Colon & Rectal Surgery Clinic Department of Surgery [place] Mail Code 450 [address] [facility] [place] [address] [facility] First Floor, Clinic [address]E [address] [place] [address] RE: Ramona Sheikh : 1945 MUSA: 07/22/2009 OUTPATIENT VISIT NOTE Ms. Sheikh returns today for perianal discomfort problems. She previously underwent banding of herinternal hemorrhoids. She still feels at times that she has prolapse of her hemorrhoids and at timeshas bleeding associated with bowel movements. Her hygiene has improved overall and she did have a colonoscopy in 2006. The patient states that she did have some uterine bleeding within the last month. This is the first time she has had this in over 10 years since the time that she underwent menopause.She is set up to see a steam locomotive firer/fireman for this at the [facility]. On physical examination, she is in no acute distress. Her abdomen is soft, nontender, nondistended. Perianal examination demonstrates a small anterior tag and some ridging along the right anterior aspect of the perineum. There is no excoriation. Digital rectal examination with good tone. No palpable masses. Anoscopy with some internal hemorrhoidal disease. When I had her bear down previously, I did see some mucosal prolapse. The risks and benefits were thoroughly discussed with the patient and she agreed to proceed with hemorrhoidal banding. I performed the banding in the left posterior position and the right anterior position. The patient tolerated this well. Impression and plan: This is a 63-year-old woman with ongoing perianal symptoms. The patient has a family history of colorectal cancer, as well as a long- standing history of constipation. I gave the patient a prescription for MiraLax. 1. The patient will continue on fiber supplementation and MiraLax as she has been taking which had helped her substantially. 2. The patient had a colonoscopy in 2006. She will get a colonoscopy in 2009 and I have advised her of such. She will schedule this. 3. Mucosal prolapse and internal hemorrhoidal disease. The patient underwent a banding today in the left posterior and right anterior position. She tolerated this well, although she did have some discomfort following this. I gave her a prescription for ibuprofen, as well as Darvocet. Theresa Hamilton M.D. Soft Tile Setter Division of Colon and Rectal Surgery Department of Surgery Total time with patient was 15 minutes, over half of it was spent counseling the patient. [id number] cc: Lisseth Estes M.D. [facility] [address] [place] [address] DD 07/22/2009 Electronically signed by:Theresa Hamilton M.D. Jul 28 2009 4:44PM MANAGER COPY Author documented in this encounter Plan of Treatment Upcoming Encounters Date Type Specialty Care Team Description 09/10/2022 Office Visit Internal Medicine LogMargot sadler MD [address] [place] [address] [phone] (Wo rk) documented as of this encounter Visit Diagnoses Not on filedocumented in this encounter
--- OUTSIDE RECORDS SUMMARY | 2022-07-30 19:36 | XMS_ITS | Encounter Summary ---
:1945 Author Organization [facility] Address [address] [place] [address]. [place] [address] Care Team Providers Name Role Phone Unavailable Primary Care Provider Unavailable Encounter Details Date Type Department Care Team Description 04/29/2009 Office Visit-[facility]FACE [facility] DEPT Unknown, Provider Social History Tobacco Use Types Packs/Day Years Used Date Smoking Tobacco: Never Alcohol Use Standard Drinks/Week Comments Not Asked 0 (1 standard drink = 0.6 oz pure alcoho l) Sex Assigned at Date Recorded Female 12/20/2018 4:10 PM CDT documented as of this encounter Progress Notes Unknown, Provider - 04/29/2009 11:45 AM CDT Production Support Specialist: Margot Dudley Status: Final Encounter: 29 Apr 2009 Type: Rooming Note Reason For Visit Cc: enrrique anal discomfort. Do you have any other appointments, tests or procedures within the [facility] system for this same day? No. Pain [...] AAA-MED RECONCILE;per patient; RPT. Signature Signed By: Margot Dudley ; 04/30/2009 11:36 AM JUVENILE OFFICER. documented in this encounter Plan of Treatment Upcoming Encounters Date Type Specialty Care Team Description 09/10/2022 Office Visit Internal Medicine LogeaisMargot MD [address] [place] [address] [phone] (Wo rk) documented as of this encounter Visit Diagnoses Not on filedocumented in this encounter
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
--- OUTSIDE RECORDS SUMMARY | 2022-07-30 19:37 | XMS_ITS | Encounter Summary ---
:1945 Author Organization [place] Address [address] [place] [address]. [place] [address] Care Team Providers Name Role Phone Unavailable Primary Care Provider Unavailable Encounter Details Date Type Department Care Team Description 03/19/2008 Historic Results Physicians, Primary Preston, Mehreen Butler, [facility] MD PhD 3rd Floor, Clinic 3A [address] [facility] [place] [address] Social History Tobacco Use Types Packs/Day Years Used Date Smoking Tobacco: Never Assessed Sex Assigned at Date Recorded Female 12/20/2018 4:10 PM CDT documented as of this encounter Plan of Treatment Upcoming Encounters Date Type Specialty Care Team Description 09/10/2022 Office Visit Internal Medicine LogeaisMargot MD [address] [address] (Wo rk) documented as of this encounter Procedures Procedure Name Priority Date/Time Associated Comments Diagnosis ROUTINE UA WITH Routine 03/19/2008 4:45 PM Result s for this MICROSCOPIC CDT procedure are i n the results section. URINE CULTURE Routine 03/19/2008 4:45 PM Results for this CDT procedure are i n the results section. GENITAL CULTURE Routine 03/19/2008 4:31 PM Result s for this AEROBIC BACTERIAL CDT procedure are in the results section. documented in this encounter Results (ABNORMAL) Routine UA with microscopic (03/19/2008 4:45 PM CDT) [facility] Method Time Signature Source Midstream MISYS Urine Color Urine Yellow MISYS Appearance Urine Slightly MISYS Cloudy Glucose Urine Negative NEG mg/dL MISYS Bilirubin Urine Negative NEG MISYS Ketones Urine Negative NEG mg/dL MISYS Specific [place] 1.021 1.003 - MISYS Urine 1.035 Blood Urine Moderate (A) NEG MISYS pH Urine 6.5 5.0 - 7.0 MISYS pH Protein Albumin 30 (A) NEG mg/dL MISYS Urine Urobilinogen Normal 0.0 - 2.0 MISYS mg/dL mg/dL Nitrite Urine Positive (A) NEG MISYS Leukocyte Large (A) NEG MISYS Esterase Urine WBC Urine >182 (H) 0 - 2 MISYS /HPF RBC Urine 70 (H) 0 - 2 MISYS /HPF Squamous 11 (H) 0 - 1 MISYS Epithelial /HPF /HPF Urine Transitional Epi 3 (H) 0 - 1 MISYS /HPF Bacteria Urine Few (A) NEG /HPF MISYS WBC Clumps Present (A) NEG /HPF MISYS Mucous Urine Present (A) NEG /LPF MISYS Specimen Anatomical Collection Method Collection Time Receive d Time (Source) Location / / Volume Laterality 03/19/2008 4:45 PM 8 4:51 CDT PM CDT Mehreen Johnston MD PhD LAB - URINE ORDERABLES Performing Organization Address City/State/ZIP Code Phon e Number MISYS Urine culture (03/19/2008 4:45 PM CDT) [facility] Method Time Signature Specimen Midstream Urine MISYS Description Culture Micro >100,000 MISYS colonies/mL Escherichia coli Comment: 10 to 50,000 colonies/mL Klebsi magan pneumoniae Micro Report Status FINAL 03/22/2008 MIS YS Specimen Anatomical Collection Method Collection Time Receive d Time (Source) Location / / Volume Laterality 03/19/2008 4:45 PM 8 4:51 CDT PM CDT Organism Antibiotic Method Susceptibility >100,000 colonies/ml Ampicillin 4 Susceptib le escherichia coli (sarah) >100,000 colonies/ml Amoxicillin/Clav 4 Suscepti ble escherichia coli (sarah) >100,000 colonies/ml Ceftriaxone <=1 Suscept ible escherichia coli (sarah) >100,000 colonies/ml Cefotaxime Susceptible escherichia coli (sarah) >100,000 colonies/ml Cefazolin <=4 Suscept ible escherichia coli (sarah) >100,000 colonies/ml Ciprofloxacin <=0.25 Susc eptible escherichia coli (sarah) >100,000 colonies/ml Nitrofurantoin <=16 Suscep tible escherichia coli (sarah) >100,000 colonies/ml Gentamicin <=1 Suscept ible escherichia coli (sarah) >100,000 colonies/ml Levofloxacin <=0.25 Susc eptible escherichia coli (sarah) >100,000 colonies/ml Trimethoprim/Sulfamethoxazole <=1/19 Susceptible escherichia coli (sarah) >100,000 colonies/ml Ticarcillin <=8 Suscept ible escherichia coli (sarah) >100,000 colonies/ml Ticarcillin/Clav <=8 Suscep tible escherichia coli (sarah) >100,000 colonies/ml Tobramycin <=1 Suscept ible escherichia coli (sarah) >100,000 colonies/ml Cefuroxime Sodium 4 Suscept ible escherichia coli (sarah) >100,000 colonies/ml Cefuroxime Axetil 4 Suscept ible escherichia coli (sarah) 10 to 50,000 colonies/ml Ampicillin >=32 Re sistant klebsiella pneumoniae (sarah) 10 to 50,000 colonies/ml Amoxicillin/Clav <=2 [place]endoza sceptible klebsiella pneumoniae (sarah) 10 to 50,000 colonies/ml Ceftriaxone <=1 Jacque ceptible klebsiella pneumoniae (sarah) 10 to 50,000 colonies/ml Cefotaxime Suscept ible klebsiella pneumoniae (sarah) 10 to 50,000 colonies/ml Cefazolin <=4 Jacque ceptible klebsiella pneumoniae (sarah) 10 to 50,000 colonies/ml Ciprofloxacin <=0.25 Susceptible klebsiella pneumoniae (sarah) 10 to 50,000 colonies/ml Nitrofurantoin 64 Inte rmediate klebsiella pneumoniae (sarah) 10 to 50,000 colonies/ml Gentamicin <=1 Jacque ceptible klebsiella pneumoniae (sarah) 10 to 50,000 colonies/ml Levofloxacin <=0.25 Susceptible klebsiella pneumoniae (sarah) 10 to 50,000 colonies/ml Trimethoprim/Sulfamethoxazole <=1/19 Susceptible klebsiella pneumoniae (sarah) 10 to 50,000 colonies/ml Ticarcillin >=128 R esistant klebsiella pneumoniae (sarah) 10 to 50,000 colonies/ml Ticarcillin/Clav <=8 [place]endoza sceptible klebsiella pneumoniae (sarah) 10 to 50,000 colonies/ml Tobramycin <=1 Jacque ceptible klebsiella pneumoniae (sarah) 10 to 50,000 colonies/ml Cefuroxime Sodium 2 Jacque ceptible klebsiella pneumoniae (sarah) 10 to 50,000 colonies/ml Cefuroxime Axetil 2 Jacque ceptible klebsiella pneumoniae (sarah) Mehreen Johnston MD PhD LAB - MICRO GENERAL ORDERABL ES Performing Organization Address City/[facility] Code Phon e Number MISYS Genital culture (03/19/2008 4:31 PM CDT) [facility] gist Method Time Signature Specimen Vagina MISYS Description Culture Micro Normal MISYS urogenital fabby Comment: Heavy growth Escherichia coli Micro Report Status FINAL 03/22/2008 MIS YS Specimen Anatomical Collection Method Collection Time Receive d Time (Source) Location / / Volume Laterality 03/19/2008 4:31 PM 8 5:02 CDT PM CDT Organism Antibiotic Method Susceptibility Heavy growth escherichia coli Ampicillin 8 Susceptible (sarah) Heavy growth escherichia coli AMPICILLIN/SUBLACTAM 4 Susceptible (sarah) Heavy growth escherichia coli Ceftriaxone <= 1 Susceptible (sarah) Heavy growth escherichia coli Ceftazidime <= 1 Susceptible (sarah) Heavy growth escherichia coli Cefotaxime <= 1 Susceptible (sarah) Heavy growth escherichia coli Cefazolin <= 4 Susceptible (sarah) Heavy growth escherichia coli Ciprofloxacin <= 0.25 Susceptible (sarah) Heavy growth escherichia coli Cefotetan <= 4 Susceptible (sarah) Heavy growth escherichia coli Gentamicin <= 1 Susceptible (sarah) Heavy growth escherichia coli Imipenem <= 1 Susceptible (sarah) Heavy growth escherichia coli Levofloxacin <= 0.25 Susceptible (sarah) Heavy growth escherichia coli Piperacillin <= 4 Susceptible (sarah) Heavy growth escherichia coli Piperacillin/Tazo <=4 Susceptible (sarah) Heavy growth escherichia coli Trimethoprim/Sulfamethoxazole <=1/19 Susceptible (sarah) Heavy growth escherichia coli Ticarcillin/Clav < =8 Susceptible (sarah) Heavy growth escherichia coli Tobramycin <= 1 Susceptible (sarah) Mehreen Johnston MD PhD LAB - MICRO GENERAL ORDERABL ES Performing Organization Address City/[facility] Code Phon e Number MISYS documented in this encounter Visit Diagnoses Not on filedocumented in this encounter
--- OUTSIDE RECORDS SUMMARY | 2022-07-30 19:37 | XMS_ITS | Encounter Summary ---
:1945 Author Organization [place] Address [address] [facility] [place] [address] Care Team Providers Name Role Phone Unavailable Primary Care Provider Unavailable Encounter Details Date Type Department Care Team Description 04/19/2008 Office Visit-[facility] Women's Unknown, [facility] [place] [address] [facility] [address] [place], [place] [phone] Social History Tobacco Use Types Packs/Day Years Used Date Smoking Tobacco: Never Assessed Sex Assigned at Date Recorded Female 12/20/2018 4:10 PM CDT documented as of this encounter Progress Notes Unknown, Provider - 04/19/2008 9:30 AM CDT Bunch Breaker: Demario Dudley Status: Final Encounter: 19 Apr 2008 Type: U Spec Nurse Note Reason For Visit Pt present today for consulting menopause symptoms and if it's good to be taking hormones. She's been off hormones for 3 years now and now just started taking them again on March 19, 2008. Allergies No Known Drug Allergy. Current Meds Multivitamins Capsule;TAKE 1 CAPSULE DAILY.; RPT Milk Thistle CAPS;TAKE DIRECTED.; RPT Astelin 137 MCG/SPRAY Solution;USE DIRECTED.; RPT Mucinex D TB12;; RPT Glucosamine Chondroitin Complx CAPS;TAKE 1 CAPSULE EVERY 12 HOURS; RPT Calcium + D TABS;TAKE 1 TABLET EVERY 12 HOURS; RPT Betamethasone Dipropionate 0.05 % Cream;APPLY SPARINGLY TO AFFECTED AREA(S) TWICE DAILY; Rx Vivelle-Dot 0.025 MG/24HR Patch Biweekly;APPLY 1 PATCH TWICE WEEKLY DIRECTED.; Rx MedroxyPROGESTERone Acetate 2.5 MG Tablet;TAKE 1 TABLET DAILY DIRECTED.; Rx Sulfamethoxazole-TMP DS 800-160 MG Tablet;TAKE 1 TABLET TWICE DAILY FOR 3 DAYS.; Rx Estrace 0.1 MG/GM Cream;INSERT 1 APPLICATOR DIRECTED DIRECTED insert 1/4 applicator intravaginally 3 times/week; Rx HydrOXYzine HCl 25 MG Tablet;TAKE 1 TABLET 4 TIMES DAILY NEEDED.; Rx AAA-MED RECONCILE;Med Reconcile; RPT. Supercritical diet and energy vegetarian tablets Take 2 tabs daily. Active Problems Osteoarthritis Of The Hip (715.95) Rest Tremor - Head Symptomatic Menopause (627.2). Pain Assessment Current history of pain associated with this visit is denied. Smoking Assessment No secondhand cigarette smoke exposure. No tobacco use. Vital Signs Recorded by nuzhat on 19 Apr 2008 09:43 AM BP:132/82, RUE, Sitting, HR: 77 b/min, R Radial, Weight: 165.8 lb. Orders Discontinue Betamethasone Dipropionate 0.05 % Cream. Signature Electronically Signed By: See Octavia RINALDI; 04/19/2008 9:54 AM SMALL BOAT ENGINEER. documented in this encounter Plan of Treatment Upcoming Encounters Date Type Specialty Care Team Description 09/10/2022 Office Visit Internal Medicine Margot Branham MD [address] [place] [phone] (Wo rk) documented as of this encounter Visit Diagnoses Not on filedocumented in this encounter
--- OUTSIDE RECORDS SUMMARY | 2022-07-30 19:37 | XMS_ITS | Encounter Summary ---
:1945 Author Organization [place] Address [address] [place] [address] Care Team Providers Name Role Phone Unavailable Primary Care Provider Unavailable Encounter Details Date Type Department Care Team Description 04/05/2007 Historic Results Women's Health Lisseth Rocha Phillips-Wangensteen MD [address] 1st Floor, Clinic [address] [place] [phone] (Wo rk) Social History Tobacco Use Types Packs/Day Years Used Date Smoking Tobacco: Never Assessed Sex Assigned at Date Recorded Female 12/20/2018 4:10 PM CDT documented as of this encounter Plan of Treatment Upcoming Encounters Date Type Specialty Care Team Description 09/10/2022 Office Visit Internal Medicine Margot Branham MD [address] [place] [phone] (Wo rk) documented as of this encounter Procedures Procedure Name Priority Date/Time Associated Comments Diagnosis CRP INFLAMMATION Routine 04/05/2007 11:00 Results for this AM CDT procedure are i n the results section. VITAMIN D DEFICIENCY Routine 04/05/2007 11:00 Res ults for this SCREENING AM CDT procedure are i n the results section. CRP CARDIAC RISK Routine 04/05/2007 11:00 Results for this AM CDT procedure are i n the results section. documented in this encounter Results (ABNORMAL) CRP inflammation (04/05/2007 11:00 AM CDT) Patholo gist Method Time Signature CRP Inflammation 8.2 (H) 0.0 - 8.0 MISYS mg/L Specimen Anatomical Collection Method Collection Time Receive d Time (Source) Location / / Volume Laterality 04/05/2007 11:00 04/05/2007 AM CDT 10:51 AM CDT Lisseth Vang MD LAB - BLOOD ORDERABLES Performing Organization Address [facility] Phon e Number MISYS CRP cardiac risk (04/05/2007 11:00 AM CDT) P athologist Signature CRP Cardiac 5.8 mg/L MISYS Risk Comment: Reference Values: Low Risk: ? <1.0 mg/L Average Risk: ? 1.0-3.0 mg/L High Risk: ?>3.0 mg/L Acute Inflammation: >8.0 mg/L Specimen Anatomical Collection Method Collection Time Receive d Time (Source) Location / / Volume Laterality 04/05/2007 11:00 04/05/2007 AM CDT 10:51 AM CDT Lisseth Vang MD LAB - BLOOD ORDERABLES Performing Organization Address [facility] Phon e Number MISYS Vitamin D deficiency screening (04/05/2007 11:00 AM CDT) P athologist Signature 25 OH Vit D2 5 ug/L MISYS 25 OH Vit D3 32 ug/L MISYS 25 OH Vit D 37 30 - 75 MISYS total ug/L Comment: Season, race, dietary intake, and treatm ent affect the concentration of 59-iajxpip-Mcjsvvw D. Values may decrea se during winter months and increase during summer months. Values less than 30 ug/L may indicate Vitamin D deficiency. Specimen Anatomical Collection Method Collection Time Receive d Time (Source) Location / / Volume Laterality 04/05/2007 11:00 04/05/2007 AM CDT 10:51 AM CDT Lisseth Vang MD LAB - BLOOD ORDERABLES Performing Organization Address [facility] Phon e Number MISYS documented in this encounter Visit Diagnoses Not on filedocumented in this encounter
--- OUTSIDE RECORDS SUMMARY | 2022-07-30 19:37 | XMS_ITS | Encounter Summary ---
:1945 Author Organization [place] Address [address] [place] [address] Care Team Providers Name Role Phone Unavailable Primary Care Provider Unavailable Encounter Details Date Type Department Care Team Description 04/04/2008 Historic Results Physicians, Primary Preston, Mehreen Butler, [facility] MD PhD 3rd Floor, Clinic 3A [address] [facility] [place] [address] Social History Tobacco Use Types Packs/Day Years Used Date Smoking Tobacco: Never Assessed Sex Assigned at Date Recorded Female 12/20/2018 4:10 PM CDT documented as of this encounter Plan of Treatment Upcoming Encounters Date Type Specialty Care Team Description 09/10/2022 Office Visit Internal Medicine LogeaisMargot MD [address] [address] (Wo rk) documented as of this encounter Procedures Procedure Name Priority Date/Time Associated Comments Diagnosis ROUTINE UA WITH Routine 04/04/2008 9:10 AM Result s for this MICROSCOPIC CDT procedure are i n the results section. documented in this encounter Results (ABNORMAL) Routine UA with microscopic (04/04/2008 9:10 AM CDT) [facility] Method Time Signature Source Midstream MISYS Urine Color Urine Yellow MISYS Appearance Urine Slightly MISYS Cloudy Glucose Urine Negative NEG mg/dL MISYS Bilirubin Urine Negative NEG MISYS Ketones Urine Negative NEG mg/dL MISYS Specific [place] 1.017 1.003 - MISYS Urine 1.035 Blood Urine Negative NEG MISYS pH Urine 5.5 5.0 - 7.0 MISYS pH Protein Albumin Negative NEG mg/dL MISYS Urine Urobilinogen Normal 0.0 - 2.0 MISYS mg/dL mg/dL Nitrite Urine Negative NEG MISYS Leukocyte Negative NEG MISYS Esterase Urine WBC Urine 2 0 - 2 MISYS /HPF RBC Urine <1 0 - 2 MISYS /HPF Squamous 13 (H) 0 - 1 MISYS Epithelial /HPF /HPF Urine Mucous Urine Present (A) NEG /LPF MISYS Specimen Anatomical Collection Method Collection Time Receive d Time (Source) Location / / Volume Laterality 04/04/2008 9:10 AM 8 9:11 CDT AM CDT Mehreen Johnston MD PhD LAB - URINE ORDERABLES Performing Organization Address City/State/ZIP Code Phon e Number MISYS documented in this encounter Visit Diagnoses Not on filedocumented in this encounter
--- OUTSIDE RECORDS SUMMARY | 2022-07-30 19:37 | XMS_ITS | Encounter Summary ---
:1945 Author Organization [place] Address [address] [place] [address]. [place] [address] Care Team Providers Name Role Phone Unavailable Primary Care Provider Unavailable Encounter Details Date Type Department Care Team Description 03/19/2008 Office Visit-[facility] Gynecologic Cancer C enter Provider, [facility] 1[facility], Clinic [address] [place] [phone] Social History Tobacco Use Types Packs/Day Years Used Date Smoking Tobacco: Never Assessed Sex Assigned at Date Recorded Female 12/20/2018 4:10 PM CDT documented as of this encounter Progress Notes Provider, [facility] Nurse - 03/19/2008 2:20 PM CDT Supervisor Paper Testing: Mansi Mckeon Status: Final Encounter: 19 Mar 2008 Type: [facility] Nurse Note Reason For Visit Sores in vulvar area and concerns about UTI or yeast infection. Vital Signs Recorded by bianca on 19 Mar 2008 02:36 PM BP:120/70, LUE, Sitting, Height: 67 in, Weight: 176.8 lb, BMI: 27.7 kg/m2. Allergies Latex Allergy: No. No Known Drug Allergy. Current Meds Multivitamins Capsule;TAKE 1 CAPSULE DAILY.; RPT Milk Thistle CAPS;TAKE DIRECTED.; RPT Guiadrine PSE 120-600 MG TB12;TAKE 1 TABLET EVERY 12 HOURS PRN; RPT Calcium-D TABS;TAKE 1 TABLET DAILY.; RPT Astelin 137 MCG/SPRAY Solution;USE DIRECTED.; RPT. Pain Assessment Current history of pain associated with this visit is as follows: Location: vulvar Quality: sharp, burning Severity: 4 (Pain scale 1-10, with 10 being the worst) Duration: intermittent Timin days ago Context: intercourse Modifying factors: rafael cream Associated signs/symptoms: hurts with wiping. Smoking Assessment No secondhand cigarette smoke exposure. No tobacco use. Performance Status GRADE : KARNOFSKY SCALE : PERFORMANCE 0 : 90 & 100 : Fully Active Initial: lt Date: 03/19/2008. Signature Electronically Signed By: Mansi Mckeon L.P.N.; 03/19/2008 2:37 PM DEMOLITION EXPERT. Provider, [facility] Nurse - 03/19/2008 2:20 PM CDT Supervisor Paper Testing: Jennifer Fatemeh Status: Final Encounter: 19 Mar 2008 Type: AMB Nurse Triage Note Informant Time of call: 09:12 Date of call: 03/19/2008 Home Caller: Patient REASON FOR CALL: Symptomatic. Assessment Patient calling to report recent problem of vaginal area redness and irritation/sensitivity of the skin and now with pain X 4 days. Ramona had seen Dr Margot Pavon at [facility] for the vaginal redness and sensitivity and she advised patient to apply cortisone cream topically. No improvement and now has become painful. Ms Sheikh will be leaving out of town soon and would like issue assessed and hopefully treated before she leaves. Plan Protocol Reference: Radha Burnette Protocol Used : Vaginal Discharge/Pain/Itching Plan: Seek medical care within 24 hours per protocol irritation on labia or vagina Appointment scheduled in [facility] clinic for this afternooon. Call back with any new or worsening symptoms/concerns. Coun/Edu Caller verbalized understanding of plan Caller agrees with advice given. Signature Electronically Signed By: Fatemeh Rodriguez R.N.; 03/19/2008 9:37 AM DEMOLITION EXPERT. documented in this encounter Plan of Treatment Upcoming Encounters Date Type Specialty Care Team Description 09/10/2022 Office Visit Internal Medicine LogeaMargot man MD [address] [place] [phone] (Wo rk) documented as of this encounter Visit Diagnoses Not on filedocumented in this encounter
--- OUTSIDE RECORDS SUMMARY | 2022-07-30 19:37 | XMS_ITS | Encounter Summary ---
:1945 Author Organization [place] Address [address] [place] [address]. [place] [address] Care Team Providers Name Role Phone Unavailable Primary Care Provider Unavailable Encounter Details Date Type Department Care Team Description 05/08/2008 Office Visit-[facility] INTER[facility] P DEPT Quita Arriaga MD XX RESIGNED XX [place], [place] [address] (Wo rk) Social History Tobacco Use Types Packs/Day Years Used Date Smoking Tobacco: Never Assessed Sex Assigned at Date Recorded Female 12/20/2018 4:10 PM CDT documented as of this encounter Progress Notes Yimi Arriaga - 05/08/2008 8:09 AM CDT News Broadcaster: Yimi Arriaga Status: Final - Signature Encounter: 08 May 2008 Type: DXA SCAN [facility] [address] [place] [address] 2-[facility], [place] [address] Phone: Fax: WRIST Bone Densitometry Report: 05/02/2008 SHANELL ABREU: Your patient, YIMI GARCIA ([id number] ), completed a DXA exam on a crossvertise on 05/02/2008 Wrist results are reported and filed under accession # [id number] Feel free to contact DXA services if you have any questions or comments. Thank you for the opportunity to be of service to you and your patient. Principal result educational interpreter: Buffy Arriaga MD, CCD Employment Coordinatorcemetery laborer Division of Rheumatic and Autoimmune Diseases [facility] DXA Services ph #: [phone] fax #: [phone] Electronically signed by:YIMI ARRIAGA MD May 09 2008 10:39AM LAST GREASER Author Yimi Arriaga - 05/08/2008 8:09 AM CDT News Broadcaster: Yimi Arriaga Status: Final - Signature Encounter: 08 May 2008 Type: DXA SCAN [facility] [address] [place] [address] Phone: Fax: Bone Densitometry Report: 05/02/2008 SHANELL ABREU: Your patient, YIMI GARCIA ([id number] ), completed a DXA exam ([id number] ) on a [email or web address] on 05/02/2008 . The following is a summary of the results. Patient biographical information and history: Current measured height: 67.0 in. Current measured weight: 165.0 lbs. Dual energy x-ray absorptiometry was performed on this [age] year [age] White Female, whose history as reported by the patient is noted for postmenopausal status , finger and thumb fractures in her 20's, right hip replacement, family history of osteoporosis or fractures of the hip or spine, and the following current treatments: calcium, vitamin D, hormone replacement. Technical quality: For the purpose of this exam the lumbar spine is represented by L1 - L2. As the right hip has been replaced, only the left hip was scanned. Densitometry results: Comparison: None provided. It is stated that previous DXA scan had been performed at [facility] at an unstated year, likely on a different machine.Bone density results acquired from different machines at different facilities, even if of the same make and model are not directly comparable. Without accompanying images, determination of technical similarity and positioning differences are not possible. Region Date BMD T - score Z - score L1-L4 05/02/2008 1.101 g/cm?? -0.7 0.3 L1-L2 05/02/2008 1.012 g/cm?? -1.3 -0.3 Neck 05/02/2008 0.883 g/cm?? -1.1 0.0 Total 05/02/2008 0.853 g/cm?? -1.2 -0.5 N/A N/A N/A N/A N/A N/A N/A N/A N/A N/A Radius 33% 05/02/2008 0.741 g/cm?? 0.4 1.4 Conclusions: Based on the most negative and valid T-score of - 1.3 at the level of the L1 - L2 lumbar spine this patient has low bone density . The risk of osteoporotic fracture increases approximately 2-fold for each 1.0 SD decrease in T-score. Low bone density is not the only risk factor for fracture; also consider factors such as patient's age, risk of falling, risk of injury, previous osteoporotic fracture, family history of osteoporosis, etc. The right hip has been replaced. So that 2 valid regions are available for analysis, scan of the non-dominant wrist was performed accordingly. The most negative and valid Z-score of -0.5 at the level of the left total hip is WITHIN expected range for age. As per the ISCD Position Statements, abnormal vertebrae may be excluded from analysis if there is more than a 1.0 T-score difference between the vertebrae in question and adjacent vertebrae. Note the wide range in BMD values and T-scores within the lumbar spine [ L1 T-score: -1.1 , L2 T-score: -1.5, L3 T-score: -0.5, L4 T-score: 0.1 ]. In the circumstances, the lumbar spine is represented by L1 - L2. Suggestions: People with an elevated risk of fracture should be regularly evaluated for low bone mineral density.For patients eligible for Medicare, routine testing is allowed once every 2 years. Testing frequencycan be increased for patients on corticosteroids. Clinical correlation is recommended. Feel free to contact DXA services if you have any questions or comments. Thank you for the opportunity to be of service to you and your patient. Principal result educational interpreter: Buffy Arriaga MD, CCD Employment Coordinatorcemetery laborer Division of Rheumatic and Autoimmune Diseases [facility] DXA Services #: [phone] fax #: [phone] References: 1. NOF Physician's Guideline Website address: www.nof.org 2. [place] College [employer] Recommendations for the Prevention and Treatment of Glucocorticoid-induced Osteoporosis: 2001 update in Arthritis and Rheumatism April 2001 edition (vol 44, issue 7) pp 1492 - 1505. 3. ISCD position statements: www.iscd.org (includes the report of the 2007 Position Development Conference) According to the ISCD position statements, lateral spine is not to be used for diagnosis, but may have a role in monitoring. According to the ISCD position statements, the diagnosis of osteoporosis in pre- menopausal women andin men younger than age 50 should not be made on the basis of densitometric criteria alone. In addition Z-scores rather than T-scores should be used. 4. Implementation of suggestions is at the discretion of the ordering provider. Clinical correlationis recommended. 5. WHO categories: normal = T-score of - 1.0 or more positive, low bone density/ osteopenia = T- score of - 1.0 to - 2.5, osteoporosis = T-score of -2.5 or more negative Template revised 3.31.2007 Electronically signed by:YIMI ARRIAGA MD May 09 2008 10:40AM LAST GREASER Author documented in this encounter Plan of Treatment Upcoming Encounters Date Type Specialty Care Team Description 09/10/2022 Office Visit Internal Medicine Margot Branham MD [address] [id number] (Wo rk) documented as of this encounter Visit Diagnoses Not on filedocumented in this encounter
--- OUTSIDE RECORDS SUMMARY | 2022-07-30 19:37 | XMS_ITS | Encounter Summary ---
:1945 Author Organization [place] Address [address] [place] [address]. [place] [address] Care Team Providers Name Role Phone Unavailable Primary Care Provider Unavailable Encounter Details Date Type Department Care Team Description 04/04/2008 Office Visit-[facility] Women's Health Mehreen Green Phillips-Wangensteen MD PhD [address], [address] [phone] (Wo rk) [phone] Social History Tobacco Use Types Packs/Day Years Used Date Smoking Tobacco: Never Assessed Sex Assigned at Date Recorded Female 12/20/2018 4:10 PM CDT documented as of this encounter Progress Notes Mehreen Johnston - 04/04/2008 9:00 AM CDT Backend Python Developer: Mehreen Johnston Status: Final - Signature Encounter: 04 Apr 2008 Type: [facility] Department of Family Medicine [place] Mail Code [address] [place] [address] Office: [phone] [facility] [place] [facility] First Floor, Clinic [address] [place] [address] [place] [address] Phone:\[phone] Fax:\[phone] RE: Ramona Sheikh : 1945 MUSA: 04/04/2008 OUTPATIENT VISIT NOTE REASON FOR VISIT: Follow up of vaginal atrophy and urgency. HISTORY OF PRESENT ILLNESS: This is a 62-year-old who I saw about two weeks ago who was having vaginal burning and soreness. She clinically had vaginal atrophy. There was a questions of a herpes ulcer.The vaginal irritation was cultured for herpes but the lab did not do an appropriate test. The patient was informed of this and should not be charged for it. However, I had given her betamethasone cream 0.05% to apply twice daily. She has been doing that for about two weeks and is markedly improved and no longer having symptoms. She comes back in follow up. She has also just recently restarted her hormone replacement. She went back on Vivelle Dot 0.025 mg/24 hours along with progesterone 2.5 mg daily. She has just recently become sexually active. When she was here also she was having urgency and her urine culture did show greater than 100,000 E.coli. It was sensitive to Septra. I gave her a three day course of Septra. She was in [place]. She stated it helped but had some persistence of symptoms two or three days after she finished her antibiotics but now that has all resolved. She used some [id number] Pyridium for that. She also has had a hip replacement and was wondering about sexual intercourse and displacing that hip with certain positions. MEDICATIONS: Reviewed by myself in the EMR. ALLERGIES: No known drug allergies. TOBACCO USE: Not currently smoking. REVIEW OF SYSTEMS: No fever, no chills, no abdominal pain. Currently is not having any frequency or blood in the urine. No chest pain, no racing heart. No cough, no wheezing, no shortness of breath. EXAMINATION: Pleasant middle aged woman in no acute distress. Blood pressure is 112/82. Heart rate is 74. Height is 67 inches. Weight is 171.1. BMI is 26.9. Her vaginal exam shows that the labia and vaginal introitus have all healed. The tissue looks healthy and pink. There are no macerated areas or open ulcers. Urine today looks clear. Leukoesterase is negative. Nitrates are negative. She had some squamous cells. ASSESSMENT AND PLAN: 1. Vaginal atrophy. Improved remarkably on the betamethasone cream. I asked her to now stop the betamethasone cream and I gave her esterase cream 1/4 of an applicator vaginally three times a week for amonth. I will see her back in a month. With the restarting the hormone replacement therapy she may be able to stop the esterase cream. If she gets bleeding she is to let me know. Hormone replacement therapy. She has just restarted Vivelle Dot and progesterone about two weeks ago. Still getting some symptoms. We will follow up in a month to see how she is doing. Her Pap smear isalso due at that time. Recent UTI. She was having some persistent symptoms after she finished the Septra. I checked her urine today and it looks clear. We will get back with her on that. We did talk about voiding after intercourse. Hip replacement. Asking about risk of dislocation with sexual intercourse in various positions. I told her I would check into this. I did think she was at any high risk for this. I did also ask her to check with her orthopedic surgeon. She should come back for a Pap and pelvic in a month. I spent 15 minutes with her, more than 50% of that time was in counseling. Mehreen Johnston MD, PhD consulting manager [facility] [phone] or [phone] SA:dd Electronically signed by:Mehreen Johnston M.D.,PhD Apr 09 2008 11:03AM ACADEMIC AFFAIRS ASSISTANT documented in this encounter Plan of Treatment Upcoming Encounters Date Type Specialty Care Team Description 09/10/2022 Office Visit Internal Medicine Margot Branham MD [address] [place] [phone] (Wo rk) documented as of this encounter Visit Diagnoses Not on filedocumented in this encounter
--- OUTSIDE RECORDS SUMMARY | 2022-07-30 19:37 | XMS_ITS | Encounter Summary ---
:1945 Author Organization [place] Address [address] [place] [address]. [place] [address] Care Team Providers Name Role Phone Unavailable Primary Care Provider Unavailable Encounter Details Date Type Department Care Team Description 05/21/2005 Results Only [facility] Bj Cox MD Hospital Results Social History Tobacco Use Types Packs/Day Years Used Date Smoking Tobacco: Never Assessed Sex Assigned at Date Recorded Female 12/20/2018 4:10 PM CDT documented as of this encounter Plan of Treatment Upcoming Encounters Date Type Specialty Care Team Description 09/10/2022 Office Visit Internal Medicine LogeaMargot man MD [address] [address] (Wo rk) documented as of this encounter Procedures Procedure Name Priority Date/Time Associated Diagnosis Comme nts HC CT HEAD WO Routine 05/21/2005 7:54 AM Results for this CONTRAST CDT procedure are i n the results section. documented in this encounter Results CT SCAN HEAD/BRAIN (05/21/2005 7:54 AM CDT) Anatomical Region Laterality Modality Other Specimen (Source) Anatomical Collection Method Collection Time Re ceived Time Location / / Volume Laterality 05/21/2005 7:54 AM CDT Impressions 05/22/2005 9:[address] without contrast History: Cerebellar degeneration. Comparison: None. Technique: Axial noncontrast CT images a re obtained consecutively from the foramen magnum to the vertex with ax ial 4.5mm reconstructions and were viewed with brain, bone, and subdur al windows. Findings: There are no focal mass lesion s or extra-axial fluid collections. There is no midline shift o r significant volume loss. There is a right basal ganglia punctate calcification. Lowry-white differentiation is intact. These cerebel lum appears grossly intact. The mastoid air cells and visualized por tions of the paranasal sinuses are clear. Impression: No acute findings. Negative CT head. I have personally reviewed the image and initial interpretation, and I agree with findings. Balbir Cox MD [facility] documented in this encounter Visit Diagnoses Not on filedocumented in this encounter
--- OUTSIDE RECORDS SUMMARY | 2022-07-30 19:37 | XMS_ITS | Encounter Summary ---
:1945 Author Organization [place] Address [address] [place] [address]. [place] [address] Care Team Providers Name Role Phone Unavailable Primary Care Provider Unavailable Encounter Details Date Type Department Care Team Description 04/19/2008 [facility] Susana Le[facility] Clinic [address] [place] [id number] [place] [address] [place] [address] [place] [phone] Social History Tobacco Use Types Packs/Day Years Used Date Smoking Tobacco: Never Assessed Sex Assigned at Date Recorded Female 12/20/2018 4:10 PM CDT documented as of this encounter Progress Notes Calvin Susana - 04/19/2008 9:30 AM CDT Automation Clerk: Susana Soria Status: Final - Signature Encounter: 19 Apr 2008 Type: [facility] Susana Yadav M.D. [facility] [address] [place] [address], [address] [place] [address] April 19, 2008 Lisseth Vang M.D. [facility] [address] [address] RE: Ramona Sheikh : 1945 MUSA: 04/19/2008 Dear Lisseth: I saw your patient, Ramona Sheikh, on April 19, 2008. You will recall that she is a 62-year-old para 1001, whom you asked for consult about her menopausal issues and hormone therapy. She has taken hormone therapy in the past but has not used it for the past three years. She recently became sexually active with a new male partner and experienced irritation and slight splitting of the skin of the vaginaand vulva. She has also been having night sweats, sleep disturbances and vaginal dryness. You have apparently given her a Vivelle Dot patch and medroxyprogesterone acetate and Estrace cream to help with her symptoms. Her past obstetrical history is significant for one section. Her gynecologic history is essentially negative. She has never had an abnormal Pap smear or sexuallytransmitted infection. Her past medical history is significant for urinary incontinence, benign head tremor, osteoarthritisof the right hip. Her surgical history is significant for a Matias procedure, left hip replacement [id number] and breast reduction approximately 11 years ago. She does not use alcohol, tobacco or recreational drugs. Again, she has a new male sexual partner. She has a well-balanced diet and walks three miles a day. Her family history is significant for mother with osteoporosis and osteoarthritis. Her father had a DVT in his 70s, when he had congestive heart failure and was hospitalized. She thinks that her sisterhad some problem after a motor vehicle accident but is not certain about that. Her current medications are Astelin, betamethasone dipropionate, calcium, Estrace cream, glucosamineand chondroitin, Hydroxyzine, medroxyprogesterone acetate, milk thistle capsules, Mucinex-D, multivitamin, sulfamethoxazole and Vivelle Dot 0.025 mg. She has no known allergies. Today her blood pressure is 132/82, pulse 77, weight 165.8 pounds. Pelvic Exam: Shows slight atrophyof the external genitalia and vagina. There is a small amount of discharge and the wet prep is positive for clue cells. Her cervix is without lesion and nulliparous appearing. Her uterus is anteverted,the adnexa are negative and the rectovaginal exam confirms the above mentioned findings. It is my assessment that she is menopausal and is symptomatic, especially with vulvovaginal atrophy.. In addition she has a new sexual partner and bacterial vaginosis. I encouraged her to continue on the Vivelle Dot 0.025 mg twice weekly. I would, however, switch her Progestin to Prometrium 100 mg nightly as this has a somewhat better lipid profile than medroxyprogesterone acetate. We also did a sexually transmitted infection screening today as she has a new partner, GC/Chlamydia cultures, wet prep, HIV, hepatitis B, RPR and herpes. As mentioned, the wet prep showed clue cells and she was given a prescription for MetroGel. We did suggest the use of vaginal dilators and she was given the web site of [employer] as a good place to obtain them. We also recommended Astroglide lubrication, as well as a minimum of 20 minutes of foreplay. Thank you very much for allowing me to participate in the care of your patient. A total of 30 minutes was spent with her, five minutes doing the exam and the rest of the time obtaining her history and counseling. Sincerely, Susana Yadav M.D. Kick Press Operator Department of Obstetrics, Gynecology, and Women's Health JL:bozena Electronically signed by:SUSANA SORIA M.D. Apr 23 2008 2:07PM DIRECTOR OF CASEWORK documented in this encounter Plan of Treatment Upcoming Encounters Date Type Specialty Care Team Description 09/10/2022 Office Visit Internal Medicine Margot Branham MD [address] [place] [phone] (Wo rk) documented as of this encounter Visit Diagnoses Not on filedocumented in this encounter
--- OUTSIDE RECORDS SUMMARY | 2022-07-30 19:37 | XMS_ITS | Encounter Summary ---
:1945 Author Organization [place] Address [address] [place] [address]. [place] [address] Care Team Providers Name Role Phone Unavailable Primary Care Provider Unavailable Encounter Details Date Type Department Care Team Description 03/19/2008 Office Visit-[facility] Women's Health Mehreen Green Phillips-Wangensteen MD PhD [address], [address] [phone] (Wo rk) [id number] [phone] Social History Tobacco Use Types Packs/Day Years Used Date Smoking Tobacco: Never Assessed Sex Assigned at Date Recorded Female 12/20/2018 4:10 PM CDT documented as of this encounter Progress Notes Mehreen Johnston - 03/19/2008 2:20 PM CDT Floatlight Loading Supervisor: Mehreen Johnston Status: Final - Signature Encounter: 19 Mar 2008 Type: [facility] Visit Family Practice & [facility]ly [facility], [facility] Department of Family Medicine [place] Mail Code [address] [place] [address] Office: [phone] Women???[facility] First Floor, Clinic [address] [place] [address] [place] [address] Phone:\[phone] Fax:\[phone] RE: Ramona Sheikh : 1945 MUSA: 03/19/2008 OUTPATIENT VISIT NOTE REASON FOR VISIT: Vaginal soreness, question of yeast infection, and urgency. HISTORY OF PRESENT ILLNESS: This is a 62-year-old woman coming in today complaining about vaginal soreness. She describes redness around the whole vaginal introitus. She used to be on estrogen and she feels that this has gotten worse since she has been off estrogen now 2 to 3 years. She also is complaining of a very sore area at the bottom of the vagina, as well as at the upper part of the left side of the labia. That area hurts with wiping. She is not getting any bleeding, but it is very red looking. It has been more irritated recently. She had sexual intercourse about 2 to 3 days ago for the first time in 5 years. She is questioning now whether she has a yeast infection. She has vaginal itching. She did have an antibiotic course 2 weeks ago. She took Diflucan today on her own. She also complained of urgency. This has been a few days. No blood in the urine. No back pain. No fever. She has tried gntf-cin-lepglmf medicines for urinary discomfort and it has helped a little. In the past, she has used Vivelle patch and Provera, but stopped it with the results of the Women's Health Study. She is experiencing, however, night sweats and insomnia, and is wanting to go back on this. She reports that she had a Pap last August, but I do not see it in the record. She also had a mammogram at that time. CURRENT MEDICATIONS: Her current medications were reviewed in the EMR. ALLERGIES: No known drug allergies. No current smoking. REVIEW OF SYSTEMS: No fever, no chills. No back pain. No cough, no wheezing, no shortness of breath,no chest pain, no racing heart. No heartburn, no nausea, no vomiting. PHYSICAL EXAMINATION: Physical Exam: Pleasant middle-aged woman in no acute distress. Blood [id number]. Height 67 inches. Weight 176.8. BMI 27.7. Her vaginal exam reveals some maceration of tissue at the superior part of the left labia majora in the crease, also some shallow ulcer and maceration of tissue with erythema and painful palpation at the base of the introitus of the vagina. The labia are red and irritated. There is very scant discharge. Cervix looks pink and healthy. Vaginal mucosa is thinned. I looked at the discharge under the microscope, no obvious yeast. I cultured the shallow ulcer at the base of the introitus for herpes simplex. Bimanual, the uterus was mid pelvis, it was not tender. No adnexal masses. ASSESSMENT/PLAN: 1. Vaginal atrophy. Vaginal ulcer at base of the introitus. Urgency. Postmenopausal symptoms, vasomotor symptoms. Patient's urine looks infected. She has positive nitrates, large leukoesterase, and blood in the urine. This will be cultured. I did give her a prescription for Septra DS one tablet twice a day for 3 days, which should take care of this. I will call her and tell her to go ahead and start that. Vaginal ulcer - question if this is herpes, was cultured, or related to vaginal atrophy. Vaginal itching. The wet prep was negative for yeast. She already took Diflucan, so will see if thishelps. Her other symptoms seem to be related more to atrophic vaginitis and irritation of the skin, possible herpes simplex ulcer. I gave her betamethasone cream 0.05% to apply to the area twice daily for a month and then will see her back in followup. May gave her estrogen cream at that time. For vasomotor symptoms I started her back on Vivelle Dot 0.025 mg/24 hours one patch twice weekly, along with medroxyprogesterone 2.5 mg daily. Went over the WHI and risks and benefits of HRT. I will see her back in a month in followup. I spent 25 minutes with her, more than 50% of that time was in counseling. Mehreen Johnston MD, PhD transportation analyst [facility] [phone] or [phone] SA:jennifer Electronically signed by:Mehreen Johnston M.D.,PhD Mar 21 2008 4:39PM WEALTH MANAGEMENT DIRECTOR documented in this encounter Plan of Treatment Upcoming Encounters Date Type Specialty Care Team Description 09/10/2022 Office Visit Internal Medicine Logeais, MD Margot [address] [place] [phone] (Wo rk) documented as of this encounter Visit Diagnoses Not on filedocumented in this encounter
--- OUTSIDE RECORDS SUMMARY | 2022-07-30 19:37 | XMS_ITS | Encounter Summary ---
:1945 Author Organization [place] Address [address] [place] [address] Care Team Providers Name Role Phone Unavailable Primary Care Provider Unavailable Encounter Details Date Type Department Care Team Description 05/01/2008 Historic Results Women's Health Shanell Rocha Phillips-Wangensteen MD [address] Floor, Clinic [address] [place] [address] [phone] (Wo rk) Social History Tobacco Use Types Packs/Day Years Used Date Smoking Tobacco: Never Assessed Sex Assigned at Date Recorded Female 12/20/2018 4:10 PM CDT documented as of this encounter Plan of Treatment Upcoming Encounters Date Type Specialty Care Team Description 09/10/2022 Office Visit Internal Medicine Margot Branham MD [address] [place] [address] [phone] (Wo rk) documented as of this encounter Procedures Procedure Name Priority Date/Time Associated Diagnosis Comme nts CYTOPATHOLOGY Routine 05/01/2008 12:00 AM Results for this CDT procedure are i n the results section . documented in this encounter Results Cytopathology (05/01/2008 12:00 AM CDT) Component Value Ref Test Analysis Performed At [facility] Range Method Time Signature Copath Report CASE: [id number] ^ COPATH PAP ?NIL Patient Name: YIMI GARCIA MR#: [id number] Specimen #: [id number] Collected: 05/01/2008 Received: 05/01/2008 Reported: 05/03/2008 09:25 Ordering Phy(s): SHANELL FLORES SPECIMEN/STAIN PROCESS: Pap thin layer prep screening (SurePath) ? Pap-Cyto x 1, Reflex HPV x 1 SOURCE: Cervical ---- Pap thin layer prep screening (SurePath) SPECIMEN ADEQUACY: Satisfactory for evaluation. -Transformation zone component absent. CYTOLOGIC INTERPRETATION: Negative for Intraepithelial Lesion or Malignancy Electronically signed out by: EITAN Abbott (ASCP) Processed and screened at [facility] CLINICAL HISTORY: Post Menopausal, TESTING LAB LOCATION: [facility], [address] ??[address] COLLECTION SITE: Client: ??[facility] Location: [facility] (B) Specimen (Source) Anatomical Collection Method Collection Time Re ceived Time Location / / Volume Laterality 05/01/2008 05/03/2008 9:26 AM CDT Shanell Vang MD LAB - COPATH SPECIAL DIAG OR DERABLES Performing Organization Address City/State/ZIP Code Phon e Number COPATH documented in this encounter Visit Diagnoses Not on filedocumented in this encounter
--- OUTSIDE RECORDS SUMMARY | 2022-07-30 19:37 | XMS_ITS | Encounter Summary ---
:1945 Author Organization [place] Address [address] [place] [address] Care Team Providers Name Role Phone Unavailable Primary Care Provider Unavailable Encounter Details Date Type Department Care Team Description 04/19/2008 Historic Results INTERFACED REPORT Bessie Simpson MD [address] [place], [place] [phone] (Wo rk) Social History Tobacco Use Types Packs/Day Years Used Date Smoking Tobacco: Never Assessed Sex Assigned at Date Recorded Female 12/20/2018 4:10 PM CDT documented as of this encounter Plan of Treatment Upcoming Encounters Date Type Specialty Care Team Description 09/10/2022 Office Visit Internal Medicine LogeaMargot man MD [address] [phone] (Wo rk) documented as of this encounter Procedures Procedure Name Priority Date/Time Associated Comments Diagnosis NEISSERIA GONORRHOEAE Routine 04/19/2008 11:10 Re sults for this PCR AM CDT procedure are i n the results section. HSV 1 AND 2 ANTIBODY Routine 04/19/2008 11:10 Res ults for this IGG AM CDT procedure are i n the results section. HSV 1 AND 2 IGG IGM Routine 04/19/2008 11:10 Resu lts for this WITH REFLEX AM CDT procedure are i n the results section. HIV 1 AND 2 ANTIBODY Routine 04/19/2008 11:10 Res ults for this ([facility]) AM CDT procedure are i n the results section. HEPATITIS B SURFACE Routine 04/19/2008 11:10 Resu lts for this ANTIGEN AM CDT procedure are i n the results section. CHLAMYDIA TRACHOMATIS Routine 04/19/2008 11:10 Re sults for this PCR AM CDT procedure are i n the results section. ANTI TREPONEMA Routine 04/19/2008 11:10 Results f or this AM CDT procedure are i n the results section. documented in this encounter Results Hepatitis B surface antigen (04/19/2008 11:10 AM CDT) P athologist Signature Hep B Surface Negative NEG MISYS Agn Specimen Anatomical Collection Method Collection Time Receive d Time (Source) Location / / Volume Laterality 04/19/2008 11:10 04/19/2008 5:55 AM CDT PM CDT Susana Simpson MD LAB - BLOOD ORDERABLES Performing Organization Address [facility] Code Phon e Number MISYS HIV 1 and 2 Antibody (04/19/2008 11:10 AM CDT) P athologist Signature HIV 1&2 Negative NEG MISYS Antibody Specimen Anatomical Collection Method Collection Time Receive d Time (Source) Location / / Volume Laterality 04/19/2008 11:10 04/19/2008 5:55 AM CDT PM CDT Susana Simpson MD LAB - BLOOD ORDERABLES Performing Organization Address [facility]/ZIP Code Phon e Number MISYS HSV 1 and 2 IgG IgM with reflex (04/19/2008 11:10 AM CDT) P athologist Signature Herpes Simplex 0.41 Index Value MISYS Virus IgM Antibody Comment: No detectable antibody. HSV IgG Antibody W/Reflex 5.08 Index Value [place] SYS Comment: Positive Specimen Anatomical Collection Method Collection Time Receive d Time (Source) Location / / Volume Laterality 04/19/2008 11:10 04/19/2008 5:55 AM CDT PM CDT Susana Simpson MD LAB - BLOOD ORDERABLES Performing Organization Address [facility] Code Phon e Number MISYS Anti treponema EIA (04/19/2008 11:10 AM CDT) P athologist Signature Treponema Negative NEG MISYS pallidum Antibody Specimen Anatomical Collection Method Collection Time Receive d Time (Source) Location / / Volume Laterality 04/19/2008 11:10 04/19/2008 5:55 AM CDT PM CDT Susana Simpson MD LAB - BLOOD ORDERABLES Performing Organization Address City/[facility]/ZIP Code Phon e Number MISYS Chlamydia trachomatis PCR (04/19/2008 11:10 AM CDT) Component Value Ref Test Analysis Performed At [facility] Range Method Time Signature Specimen Cervix MISYS Description Chlamydia Negative for C. MISYS Trachomatis PCR trachomatis rRNA by olap developer mediated amplification. Comment: A negative result by olap developer medi ated amplification does not preclude the presence of C. trachomatis infection be cause results are dependent on proper and adequate collection, absence of inh ibitors, and sufficient rRNA to be detected. Specimen Anatomical Collection Method Collection Time Receive d Time (Source) Location / / Volume Laterality 04/19/2008 11:10 04/19/2008 5:56 AM CDT PM CDT Susana Simpson MD LAB - MICRO GENERAL ORDERABL ES Performing Organization Address [facility] Code Phon e Number MISYS Neisseria gonorrhoeae PCR (04/19/2008 11:10 AM CDT) [facility] Method Time Signature Specimen Cervix MISYS Descrip N Gonorrhea Negative for N. MISYS PCR gonorrhoeae rRNA by olap developer mediated amplification. Comment: A negative result by olap developer medi ated amplification does not preclude the presence of N. gonorrhoeae infection be cause results are dependent on proper and adequate collection, absence of inh ibitors, and sufficient rRNA to be detected. Specimen Anatomical Collection Method Collection Time Receive d Time (Source) Location / / Volume Laterality 04/19/2008 11:10 04/19/2008 5:56 AM CDT PM CDT Susana Simpson MD LAB - MICRO GENERAL ORDERABL ES Performing Organization Address City/[facility]/ZIP Code Phon e Number MISYS HSV 1 and 2 antibody IgG (04/19/2008 11:10 AM CDT) athologist Signature HSV 1 IgG POORNIMA >5.00 Index Value MISYS Comment: Positive, suggests immunologic exposure. HSV 2 IgG POORNIMA 0.34 Index Value MISYS Comment: Negative, suggests no immunolog ic exposure. Specimen Anatomical Collection Method Collection Time Receive d Time (Source) Location / / Volume Laterality 04/19/2008 11:10 04/23/2008 AM CDT 10:49 PM CDT Susana Simpson MD LAB - BLOOD ORDERABLES Performing Organization Address City/State/ZIP Code Phon e Number MISYS documented in this encounter Visit Diagnoses Not on filedocumented in this encounter
--- OUTSIDE RECORDS SUMMARY | 2022-07-30 19:37 | XMS_ITS | Encounter Summary ---
:1945 Author Organization [place] Address [facility] [place] [address] Care Team Providers Name Role Phone Unavailable Primary Care Provider Unavailable Encounter Details Date Type Department Care Team Description 05/02/2008 Results Only [facility] Emerald Vang, [facility] Results [address] [place], [place] [address] (Wo rk) Social History Tobacco Use Types Packs/Day Years Used Date Smoking Tobacco: Never Assessed Sex Assigned at Date Recorded Female 12/20/2018 4:10 PM CDT documented as of this encounter Plan of Treatment Upcoming Encounters Date Type Specialty Care Team Description 09/10/2022 Office Visit Internal Medicine Margot Branham MD [address] [phone] (Wo rk) documented as of this encounter Procedures Procedure Name Priority Date/Time Associated Comments Diagnosis HC DEXA BONE DENSITY, Routine 05/02/2008 8:01 AM Results for this >=1 SITE, CDT procedure are i n APPENDICULAR SKELETON the re sults section. HC DEXA BONE DENSITY, Routine 05/02/2008 8:01 AM Results for this >=1 SITE, AXIAL CDT procedure ar e in SKELETON the results section. documented in this encounter Results DEXA,BONE DENSITY,APPENDICULR SKELTN (05/02/2008 8:01 AM CDT) Anatomical Region Laterality Modality Other Specimen (Source) Anatomical Collection Method Collection Time Re ceived Time Location / / Volume Laterality 05/02/2008 8:01 AM CDT Impressions 05/10/2008 7:26 PM CDT ?? [facility] ?? [facility] [place] [address], [place] [address] Phone: ?? Fax: ?? WRIST Bone Densitometry Report: 8 ?? SHANELL ABREU: ?? Your patient, YIMI GARCIA ([id number] ), completed a DXA exam on a maufait on 05/02/2008 ? Wrist results are reported and filed und er accession # [id number] ?? Feel free to contact DXA services if you have any questions or comments. ??Thank you for the opportunit y to be of service to you and your patient. ?? Principal result clother in: Buffy Chandler MD, CCD Senior Hydrogeologistetl lead Division of Rheumatic and Autoimmune Dis eases [facility] ??Out patient Imaging Center DXA Services ph #: ??[phone] fax #: ??[phone] ___ ? Shanell Vang MD SPECIAL IMAGING STUDIES DEXA,BONE DENSITY,AXIAL SKELETON (05/02/2008 8:01 AM CDT) Anatomical Region Laterality Modality Other Specimen (Source) Anatomical Collection Method Collection Time Re ceived Time Location / / Volume Laterality 05/02/2008 8:01 AM CDT Impressions 05/09/2008 10:50 AM CDT ?? [facility] ?? [facility] [place] [address], [place], [place] [address] Phone: ?? Fax: ?? Bone Densitometry Report: 05/02/2008 ?? SHANELL ABREU: ?? Your patient, YIMI GARCIA ([id number] ), completed a DXA exam ([id number] ) on a Doculynx on 05/02/2008 . The following is a summary of the results. ? ? ___ ?? Patient biographical information and his tory: ?? Current measured height: 67.0 in. Current measured weight: 165.0 lbs. ?? Dual energy x-ray absorptiometry was per formed on this [age] year [age] White Female, whose history as reported by the patient is noted for ?? postmenopausal status ??, finger and adilene mb fractures in her 20's, right hip replacement, family history of osteoporosis or ??fractures of the hip or spine, ?and the follow ing current treatments: ?? calcium, vitamin D, ??hormone replacemen t. ___ ?? Technical quality: ?? For the purpose of this exam the lumbar spine is represented by L1 - L2. As the right hip has been replaced, only the left hip was scanned. ___ ?? Densitometry results: ?? Comparison: ??None provided. ??It is sta jimena that previous DXA scan had been performed at [facility] at an un stated year, likely on a different machine.Bone density results a cquired from different machines at different facilities, even i f of the same make and model are not directly comparable. ??Without a ccompanying images, determination of technical similarity an d positioning differences are not possible. ?? TO VIEW DXA IMAGES OR THE COMPLETE WIZAR D REPORT INCLUDING TABLED RESULTS, GO TO PACS - PATIENT HISTORY TI MELINE or [employer] - CHART VIEWER. ?? IF YOU ARE UNABLE TO ACCESS PACS OR ALLFourteen IP CRIPTS OR WOULD LIKE A HARD COPY OF THE TABLED RESULTS, CALL THE [facility] AT [phone]. THE TABLED RESULTS FELTON L BE RETRIEVED AND FAXED TO YOU. ?? ONLY TEXT FORMAT, NOT TABLES, ARE COMPAT IBLE WITH FCIS. ??THE RESULTS PRESENTED ON THIS PAGE ARE AVAILABLE IN FCIS AND [employer] - RESULTS. ? ___ ?? Conclusions: ?? Based on the most negative and valid T-s core of ?? - 1.3 at the level of the L1 - L2 lumbar spine ??this patie nt has ??low bone density . ?? The risk of osteoporotic fracture increa ses approximately 2-fold for each 1.0 SD decrease in T-score. ??Low b one density is not the only risk factor for fracture; ??also conside r factors such as patient's age, risk of falling, risk of injury, pr evious osteoporotic fracture, family history of osteoporosis, etc. ? The right hip has been replaced. ??So th at 2 valid regions are available for analysis, scan of the non- dominant wrist was performed accordingly. ?? The most negative and valid Z-score of ? ?-0.5 at the level of the left total hip is ??WITHIN expected range for age. ?? As per the ISCD Position Statements, abn ormal vertebrae may be excluded from analysis if there is more than a 1.0 T-score difference between the vertebrae in question and ad jacent vertebrae. Note the wide range in BMD values and ??T-scores ??within the lumbar spine ??[ L1 T-score: ?? -1.1 ??, ??L2 T-score: ??-1. 5, ??L3 T-score: ??-0.5, ??L4 T-score: ??0.1 ??]. ??In the circumstanc es, the lumbar spine is represented by ??L1 - L2. ?? ___ ?? Suggestions: ?? People with an elevated risk of fracture should be regularly evaluated for low bone mineral density. ??For patients eligible for Medicare, routine testing is allowed onc e every 2 years. Testing frequency can be increased for patients on corticosteroids. Clinical correlation is recommended. ? Feel free to contact DXA services if you have any questions or comments. ??Thank you for the opportunit y to be of service to you and your patient. ?? Principal result clother in: Buffy Chandler MD, CCD Senior Hydrogeologistetl lead Division of Rheumatic and Autoimmune Dis eases [facility] ph #: ??[phone] fax #: ??[phone] ___ ?? References: ?? 1. ??NOF Physician's Guideline Website a ddress: ??www.nof.org ?? 2. ??[employer] Re commendations for the Prevention and Treatment of Glucocortico id-induced Osteoporosis: ?? 2000 update in Arthritis and Rheumatism ??April 2001 edition (vol 44, issue 7) pp 5585 - 1509 . ?? 3. ??ISCD position statements: ??www.isc d.org ??(includes the report of the 2006 ??Position Development Conferen ce) ?? According to the ISCD position statement s, lateral spine is not to be used for diagnosis, but may have a role in monitoring. ?? According to the ISCD position statement s, the diagnosis of osteoporosis in pre-menopausal women and in men younger than age 50 should not be made on the basis of densi tometric criteria alone. ??In addition Z-scores rather than T-scores s hould be used. ?? 4. ??Implementation of suggestions is at the discretion of the ordering provider. ??Clinical correlatio n is recommended. ?? 5. ??WHO categories: ?? normal = T-score of - 1.0 or more positi ve, low bone density/ osteopenia = T-score of - 1.0 to - 2.5, osteoporosis = T-score of -2.5 or more negative ? Template revised 01.02.2008 ?? Shanell Vang MD SPECIAL IMAGING STUDIES documented in this encounter Visit Diagnoses Not on filedocumented in this encounter
--- OUTSIDE RECORDS SUMMARY | 2022-07-30 19:37 | XMS_ITS | Encounter Summary ---
:1945 Author Organization [place] Address [address] [place] [address]. [place] [address] Care Team Providers Name Role Phone Unavailable Primary Care Provider Unavailable Encounter Details Date Type Department Care Team Description 04/19/2008 Office Visit-[facility] Women's Health Lisseth Rocha Phillips-Wangensteen MD [address] 1st Floor, Clinic [address] [place], [place] [address] [phone] (Wo rk) Social History Tobacco Use Types Packs/Day Years Used Date Smoking Tobacco: Never Assessed Sex Assigned at Date Recorded Female 12/20/2018 4:10 PM CDT documented as of this encounter Progress Notes Lisseth Vang - 04/19/2008 12:00 PM CDT Hand Patcher: Lisseth Vang Status: Amended, Final Encounter: 19 Apr 2008 Type: [facility] Visit Reason For Visit Follow up to hormone question and medication concerns. (Dr. Spence gave new med). Allergies No Known Drug Allergy. Current Meds [...] TIMES DAILY NEEDED.; Rx AAA-MED RECONCILE;Med Reconcile; RPT Prometrium 100 MG Capsule;TAKE 1 CAPSULE DAILY; RPT Metrogel GEL;; RPT. Diet and energy supplement. Pain Assessment Current history of pain associated with this visit is denied. Smoking Assessment No secondhand cigarette smoke exposure. No tobacco use. Vital Signs Recorded by bianca on 19 Apr 2008 01:17 PM BP:110/70, LUE, Sitting, Height: 67 in, Weight: 165.8 lb, BMI: 26 kg/m2. Performance Status GRADE : KARNOFSKY SCALE : PERFORMANCE 0 : 90 & 100 : Fully Active Initial: lt Date: 04/19/2008. HPI Pleased she had her hip surgery last September 2007, however had an adverse reaction to the medication. Has has had a slow recovery after surgery and has been trying to get back into an exercise program. Amended By: Lisseth Grajeda ; 05/01/2008 10:17 PM BEHAVIORAL INTERVENTION SPECIALIST. PMH 1) 1 para 1 status post in 1978. Was on and off hormone therapy- She was [place] this [place] [facility] started on prometrium and has been on low dose viville dot for a couple of months. Helping her sleep and hot flashes. 2) Status post breast reduction 1996. 3) Osteoarthritis of the right hip Minimal invasive surgery 09/09. 4) Drug sensitivies to codeine and morphine with significanat nausea. FAMILY HISTORY: Her mother remains alive at 90 with OA of her knees. SOCIAL HISTORY: She's . 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 Supplements include vitamin D 1000 mg Amended By: Lisseth Estes ; 05/01/2008 10:18 PM BEHAVIORAL INTERVENTION SPECIALIST. Physical Exam Pleasant woman in no acute distress. Vital signs: Reviewed and normal Eyes: anicteric, normal extra-ocular movements Righ Hip with well healed scar. Psychological: appropriate mood 20 minutes spent in direct contact with the patient with >90% in patient education and coordination of care. . Assessment Postmenopausal Hip Surgery - recovery Drug intolerance to morphine and codeine Modified Glutin Free Diet] Constipation. Plan Will see me for physical in a couple weeks Advised products from [facility] and discussed calcium 1200 mg, Vitamin D 1000 IU, Magnesium.If constipation persists trial turkey tail. Introduce new foods i.e. tortillas, oalmeal and monitor symptoms closely. Signature Electronically Signed By: Mansi Mckeon L.P.N.; 04/19/2008 1:19 PM BEHAVIORAL INTERVENTION SPECIALIST. Electronically Signed By: Lisseth Estes M.D.; 04/19/2008 2:10 PM BEHAVIORAL INTERVENTION SPECIALIST. Electronically Signed By: Lisseth Estes M.D.; 05/01/2008 10:18 PM BEHAVIORAL INTERVENTION SPECIALIST. documented in this encounter Plan of Treatment Upcoming Encounters Date Type Specialty Care Team Description 09/10/2022 Office Visit Internal Medicine Margot Branham MD [address] [place] [phone] (Wo rk) documented as of this encounter Visit Diagnoses Not on filedocumented in this encounter
--- OUTSIDE RECORDS SUMMARY | 2022-07-30 19:37 | XMS_ITS | Encounter Summary ---
:1945 Author Organization [place] Address [address] [place] [address]. [place] [address] Care Team Providers Name Role Phone Unavailable Primary Care Provider Unavailable Encounter Details Date Type Department Care Team Description 04/04/2008 Office Visit-[facility] Gynecologic Cancer C enter Unknown, Provider [facility] 1st Floor, Clinic [address] [place], [place] [phone] Social History Tobacco Use Types Packs/Day Years Used Date Smoking Tobacco: Never Assessed Sex Assigned at Date Recorded Female 12/20/2018 4:10 PM CDT documented as of this encounter Progress Notes Unknown, Provider - 04/04/2008 9:00 AM CDT Casing In Line Setter: Caroline Meeks Status: Final Encounter: 04 Apr 2008 Type: [facility] Nurse Note Reason For Visit Vaginal issues. Vital Signs Recorded by yamel on 04 Apr 2008 08:47 AM BP:112/82, LUE, Sitting, HR: 74 b/min, Height: 67 in, Weight: 171.7 lb, BMI: 26.9 kg/m2. Allergies Latex Allergy: No. No Known [...] DAILY NEEDED.; Rx AAA-MED RECONCILE;Med Reconcile; RPT. Pain Assessment Current history of pain associated with this visit is denied. Smoking Assessment No secondhand cigarette smoke exposure. No tobacco use. Performance Status GRADE : KARNOFSKY SCALE : PERFORMANCE 1 : 70 & 80 : Restricted in Physically Strenuous Activities/Ambulatory Initial: TW Date: 04/04/2008. Signature Electronically Signed By: Caroline Meeks MA; 04/04/2008 8:48 AM MOLDED GOODS OPERATOR. documented in this encounter Plan of Treatment Upcoming Encounters Date Type Specialty Care Team Description 09/10/2022 Office Visit Internal Medicine Margot Branham MD [address] [place] [phone] (Wo rk) documented as of this encounter Visit Diagnoses Not on filedocumented in this encounter
--- OUTSIDE RECORDS SUMMARY | 2022-07-30 19:37 | XMS_ITS | Encounter Summary ---
:1945 Author Organization [place] Address [address] [place] [address] Care Team Providers Name Role Phone Unavailable Primary Care Provider Unavailable Encounter Details Date Type Department Care Team Description 05/03/2008 Historic Results Women's Health Lisseth Rocha Phillips-Wangensteen MD [address] 1st Floor, Clinic [address] [place] [address] [phone] (Wo rk) Social History Tobacco Use Types Packs/Day Years Used Date Smoking Tobacco: Never Assessed Sex Assigned at Date Recorded Female 12/20/2018 4:10 PM CDT documented as of this encounter Plan of Treatment Upcoming Encounters Date Type Specialty Care Team Description 09/10/2022 Office Visit Internal Medicine Margot Branham MD [address] [place] [address] [phone] (Wo rk) documented as of this encounter Procedures Procedure Name Priority Date/Time Associated Comments Diagnosis VITAMIN D DEFICIENCY Routine 05/03/2008 9:49 AM R esults for this SCREENING CDT procedure are i n the results section. TSH Routine 05/03/2008 9:49 AM Results f or this CDT procedure are i n the results section. LIPID PROFILE Routine 05/03/2008 9:49 AM Results for this CDT procedure are i n the results section. CRP INFLAMMATION Routine 05/03/2008 9:49 AM Resul ts for this CDT procedure are i n the results section. BASIC METABOLIC PANEL Routine 05/03/2008 9:49 AM Results for this CDT procedure are i n the results section. CBC WITH PLATELETS Routine 05/03/2008 9:49 AM Res ults for this CDT procedure are i n the results section. documented in this encounter Results (ABNORMAL) Lipid panel (05/03/2008 9:49 AM CDT) P athologist Signature Cholesterol 202 (H) 0 - 200 [facility] mg/dL Comment: LDL Cholesterol is the primary guide to therapy: LDL-cholesterol goal in high risk patients is <100 mg/dL and in very high risk patients is <70 mg/dL. The NCEP recommends further evaluation of: patients with cholesterol <200 mg/dL if additionalrisk factors are present, cholesterol >240 mg/dL, triglycerides >150 mg/dL, or HDL <40 mg/dL. Triglycerides 82 0 - 150 mg/dL MISYS Comment: Fasting specimen HDL Cholesterol 66 50 - 110 mg/dL MISYS LDL Cholesterol Calculated 120 0 - 129 mg/dL M[facility] VLDL-Cholesterol 16 0 - 30 mg/dL M[facility] Cholesterol/HDL Ratio 3.1 0.0 - 5.0 [facility] Specimen Anatomical Collection Method Collection Time Receive d Time (Source) Location / / Volume Laterality 05/03/2008 9:49 AM 8 9:40 CDT AM CDT Lisseth Vang MD LAB - BLOOD ORDERABLES Performing Organization Address City/State/ZIP Code Phon e Number MISYS Basic metabolic panel (05/03/2008 9:49 AM CDT) P athologist Signature Sodium 143 133 - 144 [facility] mmol/L Potassium 4.2 3.4 - 5.3 M[facility] mmol/L Chloride 106 94 - 109 [facility] mmol/L Carbon Dioxide 27 20 - 32 [facility] mmol/L Glucose 99 60 - 99 [facility] mg/dL Comment: Fasting specimen Urea Nitrogen 14 7 - 30 mg/dL M[facility] Creatinine 0.68 0.52 - 1.04 mg/dL M[facility] Comment: New IDMS-traceable calibration beginning 02/02/08 GFR Estimate 88 >60 mL/min/1.7m2 M[facility] GFR Estimate If Black >90 >60 mL/min/1.7m2 M [facility] Calcium 9.0 8.5 - 10.4 mg/dL [facility] Anion Gap 10 6 - 17 mmol/L [facility] Specimen Anatomical Collection Method Collection Time Receive d Time (Source) Location / / Volume Laterality 05/03/2008 9:49 AM 8 9:40 CDT AM CDT Lisseth Vang MD LAB - BLOOD ORDERABLES Performing Organization Address [facility] Phon e Number MISYS CBC with platelets (05/03/2008 9:49 AM CDT) P athologist Signature MCV 89 78 - 100 fl M[facility] MCH 30.1 26.5 - 33.0 M[facility] pg MCHC 34.0 31.5 - 36.5 M[facility] g/dL RDW 14.0 10.0 - 15.0 M[facility] % WBC 5.2 4.0 - 11.0 M[facility] 10e9/L RBC Count 5.01 3.8 - 5.2 [facility] 10e12/L Hemoglobin 15.1 11.7 - 15.7 [facility] g/dL Hematocrit 44.4 35.0 - 47.0 MIS[facility] % Platelet Count 168 150 - 450 [facility] 10e9/L Specimen Anatomical Collection Method Collection Time Receive d Time (Source) Location / / Volume Laterality 05/03/2008 9:49 AM 8 9:40 CDT AM CDT Lisseth Vang MD LAB - BLOOD ORDERABLES Performing Organization Address [facility] Phon e Number MISYS (ABNORMAL) CRP inflammation (05/03/2008 9:49 AM CDT) [facility] gist Method Time Signature CRP Inflammation 10.2 (H) 0.0 - 8.0 MIS[facility] mg/L Specimen Anatomical Collection Method Collection Time Receive d Time (Source) Location / / Volume Laterality 05/03/2008 9:49 AM 8 9:40 CDT AM CDT Lisseth Vang MD LAB - BLOOD ORDERABLES Performing Organization Address City/[facility] Phon e Number MISYS TSH (05/03/2008 9:49 AM CDT) P athologist Signature TSH 0.74 0.4 - 5.0 MIS[facility] mU/L Specimen Anatomical Collection Method Collection Time Receive d Time (Source) Location / / Volume Laterality 05/03/2008 9:49 AM 8 9:40 CDT AM CDT Lisseth Vang MD LAB - BLOOD ORDERABLES Performing Organization Address City/State/ZIP Code Phon e Number MISYS Vitamin D deficiency screening (05/03/2008 9:49 AM CDT) P athologist Signature 25 [place] Vit D2 17 ug/L M[place] 25 [place] Vit D3 31 ug/L MIS[place] 25 [place] Vit D 48 30 - 75 M[facility] total ug/L Comment: Season, race, dietary intake, and treatm ent affect the concentration of 13-vutcbgx-Wxqkjte D. Values may decrea se during winter months and increase during summer months. Values less than 30 ug/L may indicate Vitamin D deficiency. Specimen Anatomical Collection Method Collection Time Receive d Time (Source) Location / / Volume Laterality 05/03/2008 9:49 AM 8 9:40 CDT AM CDT Lisseth Vang MD LAB - BLOOD ORDERABLES Performing Organization Address City/State/ZIP Code Phon e Number MISYS documented in this encounter Visit Diagnoses Not on filedocumented in this encounter
--- OUTSIDE RECORDS SUMMARY | 2022-07-30 19:43 | XMS_ITS | Encounter Summary ---
:1945 Author Organization [facility] Address [address] [place] [address] Care Team Providers Name Role Phone Lisseth Vang MD Primary Care Provider [phone] Reason for Visit Reason Comments SHOT,FLU Encounter Details Date Type Department Care Team Description 07/12/2019 Nursing Visit [place] Kieran walton Encounter for immunization [address] (Primary Dx) [place] [address] Social History Tobacco Use Types Packs/Day Years Used Date Smoking Tobacco: Never Smokeless Tobacco: Never Alcohol Use Standard Drinks/Week Comments Yes 0 (1 standard drink = 0.6 oz pure alcoho l) rare Sex Assigned at Date Recorded Not on file documented as of this encounter Progress Notes Dori Barlow CMA - 07/12/2019 2:40 PM CDT Yamileth Sheikh here for injection(s). ordered per standing order . See orders. Contraindications and side effects discussed with patient patient verbalized understanding of risks, possible side effects, and benefits of the injection and gave permission to administer the stated immunization(s). No precautions or contraindications noted. Tolerated injection well. See immunization/injection report for administration documentation. Dori Barlow CMA documented in this encounter Plan of Treatment Not on filedocumented as of this encounter Visit Diagnoses Diagnosis Encounter for immunization - Primary Need for other specified prophylactic va ccination against single bacterial disease documented in this encounter Care Teams Maxillofacial Surgeon Relationship Specialty Start Date End Date Lisseth Vang MD PCP - General Family Practice 04/07/17 07/03/21 [address] [facility] [address] [place] [address] documented as of this encounter
--- OUTSIDE RECORDS SUMMARY | 2022-07-30 19:43 | XMS_ITS | Encounter Summary ---
:1945 [facility] Address [address], [place] [address] Care Team Providers Name Role Phone Margot Branham MD Primary Care Provider Encounter Details Date Type Department Care Team Description 04/27/2017 Correspondence External to External, Provid er APPOINTMENT SCHEDULE [place] [address] Social History Tobacco Use Types Packs/Day Years Used Date Smoking Tobacco: Never Smokeless Tobacco: Never Alcohol Use Standard Drinks/Week Comments No 0 (1 standard drink = 0.6 oz pure alcoho l) Sex Assigned at Date Recorded Not on file documented as of this encounter Plan of Treatment Not on filedocumented as of this encounter Visit Diagnoses Not on filedocumented in this encounter Care Teams Textile Knitter Relationship Specialty Start Date End Date Margot Branham MD PCP - General Internal Medicine 07/04/[address] [address] documented as of this encounter
--- OUTSIDE RECORDS SUMMARY | 2022-07-30 19:43 | XMS_ITS | Clinical Summary ---
:1945 Author Organization [facility] Address [address] [place] [address] Care Team Providers Name Role Phone Logeais, Margot Morales MD Primary Care Provider Source Comments You are receiving this document as you are listed as the primary care provider,follow-up provider, or the patient has been referred to you for consultation.This is in compliance with the Medicare and Medicaid EHR Incentive Program,which states Providers who transition their patient to another setting of careor provider of care or refers their patient to another provider of care shouldprovide summarycare record for each transition of care or referral. [employer] Allergies Active Allergy Reactions Severity Noted Date Comments Perindopril Cough 07/29/2018 Codeine Gastrointestinal 03/19/2015 Latex Rash 03/19/2015 Morphine Gastrointestinal 03/19/2015 Morphine And Related 10/31/2007 Nickel Rash 03/19/2015 Other Rash 03/19/2015 Propofol 03/19/2015 Other reaction( s): Nausea and Vomiting, O ther (See Comments) Extreme vertigo and nausea/vomiting Medications Medication Sig Dispensed Refills Start Date End Date Status ESTRADIOL VAGINAL (AKA Insert 1 Each 0 01/07/2015 Active ESTRING) 2 MG vaginal vaginally. ring rosuvastatin (CRESTOR) 5 Take 5 mg by 0 Active MG tablet mouth daily. irbesartan (AVAPRO) 150 Take 150 mg by 0 Active MG tablet mouth daily. cholecalciferol (VITAMIN Take 1 Tablet 100 Tablet 3 04/12/2019 Active D3) 1000 units tablet by mouth daily. 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/2007 Overview: Telangiectasia Symptomatic menopausal or female climacteric states Overview: LW Onset: [id number] ; Menopause Plantar fascial fibromatosis 11/23/2003 Overview: LW Onset: 16Qdi58 ; Plantar Fasciitis Disease of nasal cavity and sinuses 11/23/2003 Overview: LW Onset: [id number] ; Rhinorrhea Lumbago 03/10/2003 Overview: Pain Low Back Hearing loss 03/10/2003 Overview: Hearing Loss NOS Resolved Problems Problem Noted Date Resolved Date Meniere's disease 11/23/2003 07/29/2018 Overview: LW Onset: 1972 ; Meniere's Disease NOS Immunizations Name Administration Dates Next Due DT Ped 02/08/1986 Flu Vac Preserv Free (3+yrs) 07/25/2007, 07/08/2006, 005, 09/17/2004, 08/04/2003 HepA Adult (19+ yrs) 10/02/2003, 02/12/2003 HepB Adult (Engerix-B, 20+ yrs, 3 10/02/2003, 03/28/2003, dose series) Influenza IIV3 (Trivalent) Fluzone 07/12/2019 Highdose, 65+ Yrs (74[address]) Influenza, Unspecified Formulation 08/23/2002, 08/04/2001, 1 , 07/31/1997, 06/23/1995, 10/08/1994, 07/16/1993 Lyme 05/04/2001, 02/24/1999, 12/19/1998 PCV13 (Prevnar) 01/07/2015 PPSV23 (Pneumovax) 11/27/2013 Rabies 05/01/2003, 04/10/2003, 04/03/2003 TB Skin Test (PPD) 04/05/2007, 03/23/2007, 07/20/2005 TDAP (ADACEL) 04/28/2007 Td 09/22/1999 Typhoid (Typhim Vi, IM) 04/28/2007, 10/02/2003 YF (Yellow Fever) 05/01/2003 Zoster (Zostavax) 09/23/2009 Zoster RZV (Shingrix) 03/29/2018 Social History Tobacco Use Types Packs/Day Years Used Date Smoking Tobacco: Never Smokeless Tobacco: Never Alcohol Use Standard Drinks/Week Comments Yes 0 (1 standard drink = 0.6 oz pure alcoho l) rare Sex Assigned at Date Recorded Not on file Last Filed Vital Signs Vital Sign Reading Time Taken Comments Blood Pressure 121/58 04/12/2019 11:56 AM CDT Pulse 67 04/12/2019 11:56 AM CDT Temperature 37 ??C (98.6 ??F) 04/12/2019 11:56 AM CDT Respiratory Rate 16 03/19/2015 3:29 PM CDT Oxygen Saturation 98% 08/16/2014 5:40 PM SUPERINTENDENT PIPELINES Inhaled Oxygen Concentration - - Weight 64 kg (141 lb 3.2 oz) 04/12/2019 11:56 AM CDT Height 167.6 cm (5' 6) 04/12/2019 11:56 AM CDT Body Mass Index 22.79 04/12/2019 11:56 AM CDT Plan of Treatment Health Maintenance Due Date Last Done Comments Hep C Screening (Preventive 1945 Services) Medicare Annual Wellness 1945 Visit COVID-19 Vaccine (#1) 02/07/1946 Mammogram 11/27/2014 11/27/2013, 10/08/2010, 07/10/2009, Additional history exists Colonoscopy 04/16/2020 04/16/2010 Influenza (#1) 2022 06/14/2020, 07/12/2019, 07/26/2018, Additional history exists DTaP/Tdap/Td (6 - Tdap) 06/30/2027 06/30/2017, 09/24/2010, 04/28/2007, Additional history exists HepA Aged Out 10/02/2003, 02/12/2003 No longer eligible based on patient 's age to complete this topic HepB Completed 10/02/2003, 03/28/2003, 02/12/2003 Dexa Completed 11/20/2013 (Completed) Pneumococcal 65+ Yrs Completed 01/07/2015, 11/27/2013 Zoster/Shingles Completed 06/03/2018, 03/29/2018, 09/23/2009 Hib Aged Out No longer eligib le based on patient 's age to complete this topic IPV (Polio) Aged Out No longer eligib le based on patient 's age to complete this topic MCV4 Aged Out No longer eligib le based on patient 's age to complete this topic Insurance Payer Benefit Plan / Subscriber ID Effective Phone Address T ype Group Dates [employer] MED[employer] [id number] 2015-Pres [phone] Medicare ADVANTAGE ent [id number] MEDICARE MEDICARE [id number] 2018-Pres [facility] care ent [employer] MED[employer]ARE [id number] 2015-Pres Commercial SUPPLEMENT ent (Work) [phone] Yamileth Sheikh Personal/Famil Self 1945 [address]Home) [place] [phone] [place], [place] (Work) [phone] Yamileth Sheikh Personal/Famil Self 1945 [address] [place]) [place] [address] Care Teams Health Assessment And Treatment Teacher Relationship Specialty Start Date End Date Margot Branham MD PCP - General Internal Medicine 07/04/[address] [address]
--- OUTSIDE RECORDS SUMMARY | 2022-07-30 19:43 | XMS_ITS | Encounter Summary ---
:1945 Author Organization [facility] Address [address] [place] [address] Care Team Providers Name Role Phone Lisseth Vang MD Primary Care Provider [phone] Reason for Visit Reason Comments Preop Exam Encounter Details Date Type Department Care Team Description 04/12/2019 Pre-Op Visit Reed Pardo Pfefferchristopher, Pre-ope rative general physical examination (Primary Dx); Practice Sohan Moe MD Chronic right shoulder pain [address] [facility]. [address] [place] [address] [place], [place] [phone] [address] Social History Tobacco Use Types Packs/Day Years Used Date Smoking Tobacco: Never Smokeless Tobacco: Never Alcohol Use Standard Drinks/Week Comments Yes 0 (1 standard drink = 0.6 oz pure alcoho l) rare Sex Assigned at Date Recorded Not on file documented as of this encounter Last Filed Vital Signs Vital Sign Reading Time Taken Comments Blood Pressure 121/58 04/12/2019 11:56 AM CDT Pulse 67 04/12/2019 11:56 AM CDT Temperature 37 ??C (98.6 ??F) 04/12/2019 11:56 AM CDT Respiratory Rate - - Oxygen Saturation - - Inhaled Oxygen Concentration - - Weight 64 kg (141 lb 3.2 oz) 04/12/2019 11:56 AM CDT Height 167.6 cm (5' 6) 04/12/2019 11:56 AM CDT Body Mass Index 22.79 04/12/2019 11:56 AM CDT documented in this encounter Patient Instructions Patient InstructionsPSohan leigh MD - 04/12/2019 11:40 AM CDT On the day of surgery please do not wear any hair product, including hair spray, gels, etc, and please bring all your medications with you on your day of surgery. If you have sleep apnea and have an oral appliance or CPAP equipment, bring your equipment to the hospital. Please, follow instructions for not taking anything by mouth the night before your procedure. However, some medications should not be held for surgery because they are beneficial, and some medications need special attention. Medications I recommend you take with a small sip of water up until surgery include: statin cholesterol medication (heart protective for surgery) Medications that require special changes include: ACEI/ARB medications: omit one dose before surgery. . documented in this encounter Progress Notes Sohan Paredes MD - 04/12/2019 11:40 AM CDT Pre-operative History and Physical Assessment Name: Yamileth Sheikh : 1945 Primary physician: Lisseth Vang MD. Historical: Yamileth Sheikh is a 73 y.o. old female is here for preoperative cardiac and risk evaluation. Patient is scheduled for arthoscopic shoulder on 05/03/[address] Trent Salazar at [facility]. Pertinent history: Significant right shoulder pain since November. She reports she has a shoulder impingement. Additional concerns: None Preoperative Screening Questions: Any problems with / history of... Tightening or pressure in chest with activity? no Waking at night with shortness of breath? no Swelling of feet or ankles recently? no Difficulty sleeping flat at night because of shortness of breath? no Troubled by shortness of breath when Walking on the level? Climbing a flight of stairs? no no Getting pains in the calf muscles when walking? no Chest sounds like wheezy or whistling? no Cough, runny nose, or cold symptoms currently? no A chronic cough? no Bleeding or clotting problems for you or close relatives? YES Herbal supplements or medications not on the med list being taken? no Taking steroids or immunosuppressive medications. no Aspirin or NSAIDS taken in the last two weeks? no Anemia or taking iron pills? no Anesthesia complications for you or close relatives? YES History of sleep apnea, loud snoring, daytime drowsiness or CPAP at home? no Heart attack in the last 30 days? no Recent memory problems (dementia)? no Is there a history of COPD(emphysema) or asthma? no Medications: Current Outpatient Medications Medication Sig Note Dispense Refill ??? cholecalciferol (VITAMIN D3) 1000 units tablet Take 1 Tablet by mouth daily. 100 Tablet 3 ??? ESTRADIOL VAGINAL (AKA ESTRING) 2 MG vaginal ring Insert 1 Each vaginally. 03/19/2015: Received from: [facility] ??? irbesartan (AVAPRO) 150 MG tablet Take 150 mg by mouth daily. ??? rosuvastatin (CRESTOR) 5 MG tablet Take 5 mg by mouth daily. No current facility-administered medications for this visit. Allergies: Latex; Aceon [perindopril]; Codeine; Morphine; Morphine and related; Nickel; Other; and Propofol Patient Active Problem List Diagnosis ??? Lumbago ??? Hearing loss ??? Symptomatic menopausal or female climacteric states ??? Plantar fascial fibromatosis ??? Disease of nasal cavity and sinuses ??? Capillary disease ??? DJD (degenerative joint disease) of knee ??? Tinnitus of both ears Habits: Social History Tobacco Use ??? Smoking status: Never Smoker ??? Smokeless tobacco: Never Used Substance Use Topics ??? Alcohol use: Yes Comment: rare Past Surgical History: Procedure Laterality Date ??? BLADDER SURGERY bladder stimulation, leads placed 2010, battery replaced 2017 ??? SECTION 1978 ??? HIP REPLACEMENT Right ??? OPERATIVE HYSTEROSCOPY 05/2018 Observed: Physical Examination: Vital Signs: BP 121/58 Pulse 67 Temp 98.6 ??F (37 ??C) (Tympanic) Ht 5' 6 (1.676 m) Wt 141 lb 3.2 oz (64 kg) BMI 22.79 kg/m?? Estimated body mass index is 22.79 kg/m?? as calculated from the following: Height as of this encounter: 5' 6 (1.676 m). Weight as of this encounter: 141 lb 3.2 oz (64 kg). General: ambulatory, well nourished, alert. HEENT: normal eyes, ears, throat, oropharynx Neck: Thyroid not enlarged. No bruits. No jugular venous distention Cardiovascular: regular rate and rhythm, normal S1 and S2 without murmur or click Chest/Lungs: clear to auscultation, no wheezes or rales Abdomen: Soft, non-tender, no masses, no hepatomegaly or splenomegaly. Extremities: No cyanosis, clubbing or edema. Pulses intact. Neurologic: Alert and oriented to person, place and time. Skin: No rash Data: Labs: not indicated ECG: not indicated for this procedure Assessment and Plan: Pre-op cardiac & risk evaluation: Patient is medically optimized for planned procedure. Cardiac risk for the planned procedure is LOW No active cardiac conditions. Low risk procedure - no additional cardiac evaluation is needed. Medication changes are listed in patient instructions below. Special risks: NONE Electronically Signed By: Sohan Paredes MD CC: documented in this encounter Plan of Treatment Not on filedocumented as of this encounter Visit Diagnoses Diagnosis Pre-operative general physical examinati on - Primary Other specified pre-operative examinatio n Chronic right shoulder pain Pain in joint, shoulder region documented in this encounter Care Teams Ladle Liner Relationship Specialty Start Date End Date Lisseth Vang MD PCP - General Family Practice 04/07/17 07/03/[address] [place], [place] [address]E [facility] [address] [place] [address] documented as of this encounter
--- OUTSIDE RECORDS SUMMARY | 2022-07-30 19:44 | XMS_ITS | Encounter Summary ---
:1945 [address] [facility] Address [address] [place] [address] Care Team Providers Name Role Phone Titus Medina MD Primary Care Provider Encounter Details Date Type Department Care Team Description 10/08/2010 PN Conversion Only [facility] [address] [place], [place] [id number] Social History Tobacco Use Types Packs/Day Years Used Date Smoking Tobacco: Never Assessed Sex Assigned at Date Recorded Not on file documented as of this encounter Plan of Treatment Not on filedocumented as of this encounter Procedures Procedure Name Priority Date/Time Associated Diagnosis Comme nts MM MAMMOGRAM Routine 10/08/2010 5:44 PM Results f or this SCREENING BILAT W VESSEL BUILDER procedure are in CAD the results section. documented in this encounter Results MM Mammogram Screening Bilat W CAD (10/08/2010 5:44 PM VESSEL BUILDER) Anatomical Region Laterality Modality Breast Bilateral Mammography Specimen (Source) Anatomical Location Collection Method / Collectio n Time Received Time / Laterality Volume Narrative 10/09/2010 11:19 AM VESSEL BUILDER Comparison is made to films from 07/10/2009 (bilateral). There is no significant interval change. Bilateral Breast Findings: The breasts are heterogeneously dense (5 1% - 75% fibroglandular). This may lower the sensitivity of mammog gonzalez. No significant masses, calcifications or other abnormalities ar e seen. IMPRESSION: BILATERAL BREASTS Negative, no evidence of malignancy. Nor mal interval follow-up is recommended in 12 months. OVERALL ASSESSMENT - CATEGORY 1 - NEGATI VE END OF IMPRESSION BJ Dictating RAJINDER FULLER RADIOLOGIST Procedure Note Rajinder Vora MD - 06/02/2016Forma tting of this note might be different from the original. Comparison is made to films from 009 (bilateral). There is no significant interval change. Bilateral Breast Findings: The breasts are heterogeneously dense (5 1% - 75% fibroglandular). This may lower the sensitivity of mammog gonzalez. No significant masses, calcifications or other abnormalities ar e seen. IMPRESSION: BILATERAL BREASTS Negative, no evidence of malignancy. Nor mal interval follow-up is recommended in 12 months. OVERALL ASSESSMENT - CATEGORY 1 - NEGATI VE END OF IMPRESSION BJ Dictating RAJINDER FULLER RADIOLOGIST Lisseth MALAGON documented in this encounter Visit Diagnoses Not on filedocumented in this encounter Care Teams Airport Clerk Relationship Specialty Start Date End Date Titus Medina MD PCP - General 09/16/1996 03/17/15 documented as of this encounter
--- OUTSIDE RECORDS SUMMARY | 2022-07-30 19:44 | XMS_ITS | Encounter Summary ---
:1945 Author Organization [facility] Address [address] [place] [address] Care Team Providers Name Role Phone Titus Medina MD Primary Care Provider Reason for Visit Reason Comments CONSULT Encounter Details Date Type Department Care Team Description 03/16/2012 Initial Consult [facility] [place] [facility] [address] Jey Molina MD Aging (Primary Dx) Plastic Surgery [address] [place], [place] [address] [address] [place] [address] [phone] Social History Tobacco Use Types Packs/Day Years Used Date Smoking Tobacco: Never Assessed Sex Assigned at Date Recorded Not on file documented as of this encounter Last Filed Vital Signs Vital Sign Reading Time Taken Comments Blood Pressure 112/60 03/16/2012 9:02 AM CDT Pulse - - Temperature - - Respiratory Rate - - Oxygen Saturation - - Inhaled Oxygen Concentration - - Weight 84.8 kg (187 lb) 03/16/2012 9:02 AM CDT Height 167.6 cm (5' 6) 03/16/2012 9:02 AM CDT Body Mass Index 30.18 03/16/2012 9:02 AM CDT documented in this encounter Progress Notes Jey Molina MD - 03/18/2012 9:14 AM CDT facial aging discussed facelift and lip augmentation in detail PE 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
--- OUTSIDE RECORDS SUMMARY | 2022-07-30 19:44 | XMS_ITS | Encounter Summary ---
:1945 Author Organization [facility] Address [address] [place] [address] Care Team Providers Name Role Phone Titus Medina MD Primary Care Provider Encounter Details Date Type Department Care Team Description 01/01/2014 Imaging [facility] Knee pain [address] [place], [place] [address] Social History Tobacco Use Types Packs/Day Years Used Date Smoking Tobacco: Never Assessed Sex Assigned at Date Recorded Not on file documented as of this encounter Plan of Treatment Not on filedocumented as of this encounter Procedures Procedure Name Priority Date/Time Associated Comments Diagnosis XR KNEE LT 1-2 VIEWS Routine 01/01/2014 12:29 PM Knee pain Results for this COMPARISON CDT procedure are i n the results section. XR KNEE RT 3 VIEWS Routine 01/01/2014 12:29 PM Knee pain Re sults for this CDT procedure are i n the results section. documented in this encounter Results XR Knee Lt 1-2 Views Comparison (01/01/2014 12:29 PM CDT) Anatomical Region Laterality Modality Lower Extremity, Knee Other Specimen (Source) Anatomical Location Collection Method / Collectio n Time Received Time / Laterality Volume Narrative 01/07/2014 11:28 PM CDT Three views of the right knee interpreted together with 2 views of the left knee for comparison. INDICATION: ??Right knee pain. There is narrowing in the lateral patell ofemoral joint bilaterally and patellofemoral marginal spurs are noted bilaterally. ??There is no effusion noted in the right knee. ??Medial and lateral compartments appear normal in both knees. ?? Procedure Note Pascual Parker MD - 03/21/2016 Three views of the right knee interprete d together with 2 views of the left knee for comparison. INDICATION: Right knee pain. There is narrowing in the lateral patell ofemoral joint bilaterally and patellofemoral marginal spurs are noted bilaterally. There is no effusion noted in the right knee. Medial and lateral compartments appear normal in both knees. Pascual RYAN GD XR Knee Rt 3 Views (01/01/2014 12:29 PM CDT) Anatomical Region Laterality Modality Lower Extremity, Knee Other Specimen (Source) Anatomical Location Collection Method / Collectio n Time Received Time / Laterality Volume Narrative 01/07/2014 11:28 PM CDT Three views of the right knee interpreted together with 2 views of the left knee for comparison. INDICATION: ??Right knee pain. There is narrowing in the lateral patell ofemoral joint bilaterally and patellofemoral marginal spurs are noted bilaterally. ??There is no effusion noted in the right knee. ??Medial and lateral compartments appear normal in both knees. ?? Procedure Note Pascual Parker MD - 03/21/2016 Three views of the right knee interprete d together with 2 views of the left knee for comparison. INDICATION: Right knee pain. There is narrowing in the lateral patell ofemoral joint bilaterally and patellofemoral marginal spurs are noted bilaterally. There is no effusion noted in the right knee. Medial and lateral compartments appear normal in both knees. Pascual RYAN GD documented in this encounter Visit Diagnoses Diagnosis Knee pain Pain in joint, lower leg documented in this encounter Care Teams Tobacco Packer Relationship Specialty Start Date End Date Titus Medina MD PCP - General 09/16/1996 03/17/15 documented as of this encounter
--- OUTSIDE RECORDS SUMMARY | 2022-07-30 19:44 | XMS_ITS | Encounter Summary ---
:1945 Author Organization [facility] Address [address] [place] [address] Care Team Providers Name Role Phone Titus Medina MD Primary Care Provider Reason for Visit Reason Comments Knee Pain or Injury Encounter Details Date Type Department Care Team Description 01/01/2014 Surgical Consult [facility] Pascual Parker Patello femoral syndrome, right (Primary Dx); NAVJOT Teresa MD DJD (degenerative joint dise ase) of knee [address] [place] [id number] Social History Tobacco Use Types Packs/Day Years Used Date Smoking Tobacco: Never Assessed Sex Assigned at Date Recorded Not on file documented as of this encounter Last Filed Vital Signs Vital Sign Reading Time Taken Comments Blood Pressure - - Pulse - - Temperature - - Respiratory Rate - - Oxygen Saturation - - Inhaled Oxygen Concentration - - Weight 82.1 kg (181 lb) 01/01/2014 12:22 PM CDT Height 167.6 cm (5' 6) 01/01/2014 12:22 PM CDT Body Mass Index 29.21 01/01/2014 12:22 PM CDT documented in this encounter Progress Notes Pascual Parker MD - 01/03/2014 11:27 AM CDT Progress Notes signed by Pascual Parker MD at 01/07/14 9917 Author: Pascual Parker MD Service: (none) Author Type: Physician Filed: 01/07/142312 Note Time: 01/05/14 1536 Status: Signed Truck Driver Teamster: Pascual Parker MD (Physician) NAME: IMELDA GARCIA MR#: [id number] CSN: [id number] AUTHENTICATING CLINICIAN: Pascual Parker MD CONFIRM #: [id number] LOC: 711 CLINIC PROGRESS NOTE DATE OF VISIT: 01/01/2014 : 1945 CHIEF COMPLAINT: Right knee pain. HISTORY OF PRESENT ILLNESS: This 68-year-old woman has developed pain in her right knee. It is intermittent and severe. At times, it hurts so much that the leg feels like it will give out. It is particularly uncomfortable on stairs. It is also difficult to get up and down from chairs. When she is sitting down, she has to plop down because pain inhibits slow descent. She has had a right hip replacement 5 years ago with not much physical therapy following that. She was seen at [facility] on 04/07/2011 with complaintsof left hip pain and right knee pain. She had a history of the right total hip arthroplasty in 09/2007. X-rays were obtained, and exam was performed. 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 He recommended physical therapy for VMO strengthening and hamstring flexibility exercises for the knee. The patient was seen by Dr. Kevin Rivera. She brought in the results of this exam and the x-rays. She has been having pain in the right knee and these symptoms for the past 5-6 years. She is here for second opinion. PAST MEDICAL HISTORY: Right hip replacement in 2006. CURRENT MEDICATIONS: Include glucosamine/chondroitin, estradiol, vitamin D3, calcium, Astelin nasal spray, and vitamins. ALLERGIES: LATEX CAUSES RASH. CODEINE AND MORPHINE CAUSE NAUSEA AND VOMITING. PROPOFOL. 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 REVIEW OF SYSTEMS: Patient has patellofemoral symptoms 7 years status post right hip replacement. There is no erythema,fever, cellulitis in the leg. PHYSICAL EXAM: This pleasant 68-year-old woman is 5 foot 6 inches in height and weighs 181 pounds. She is a bit overweight. EXAM OF HER RIGHT LEG: Reveals atrophic quadriceps muscles in the right greater than left leg. She has tenderness in the patellofemoral joint margins with some crepitus. There is no effusion. No collateral or cruciate ligament laxity and no meniscal compressive tenderness. Range of motion is full. IMAGING: X-rays were ordered and independently reviewed. Three views of the right knee interpreted together with 2 views of the left knee for comparison. INDICATION: Right knee pain. There is narrowing in the lateral patellofemoral joint bilaterally and patellofemoral marginal spursare noted bilaterally. There is no effusion noted in the right knee. Medial and lateral compartmentsappear normal in both knees. IMPRESSION: Degenerative joint disease, patellofemoral compartment, right knee greater than left knee. PLAN: Recommended physical therapy for core and thigh strengthening. I discussed patellofemoral syndrome with the patient and suggested that the deconditioning in her right leg post hip replacement is what accounts for the greater pain in the right greater than left knee, although there are degenerative signs in both knees. The patient will try physical therapy and weight loss, and if that is not improvingher enough, she will follow up for cortisone injection. JLL: C: R:01/03/14 11:30 CONFIRM#:[id number] documented in this encounter Plan of Treatment Not on filedocumented as of this encounter Visit Diagnoses Diagnosis Patellofemoral syndrome, right - Primary DJD (degenerative joint disease) of knee Osteoarthrosis, unspecified whether gene ralized or localized, lower leg documented in this encounter Care Teams Machine Stoppage Frequency Checker Relationship Specialty Start Date End Date Titus Medina MD PCP - General 09/16/1996 03/17/15 documented as of this encounter
--- OUTSIDE RECORDS SUMMARY | 2022-07-30 19:44 | XMS_ITS | Encounter Summary ---
:1945 Author Organization [facility] Address [address] [place] [address] Care Team Providers Name Role Phone Titus Medina MD Primary Care Provider Reason for Visit Reason Onset Date Comments VOMITING 08/24/2011 DI[facility] 08/24/2011 Encounter Details Date Type Department Care Team Description 08/24/2011 Telephone Careline Unknown, Physician VOMITING; [facility] [address] [place], [place] [address] [place], [place] [phone] (Wo rk) Social History Tobacco Use Types Packs/Day Years Used Date Smoking Tobacco: Never Assessed Sex Assigned at Date Recorded Not on file documented as of this encounter Nursing Notes Екатерина Mazariegos RN - 08/24/2011 8:50 PM CST Pt calling to say, I have vomiting and having diarrhea. I live alone so I'm just calling to find out if there is anything I should be doing. TRIAGE REFERENCE: DIARRHEA - ADULT CNG (c) 2010 STAT SYMPTOMS: None per guideline Onset: Ongoing, Duration: 24 hours. Stools are: Watery, Loose, Color : brown at first, almost clear now, and amount is usually: diarrhea less now. GI symptoms are: vomiting. Recent history includes: no travel, new medications, or family members with symptoms. Diet: nothing, fluid intake: sips of flat tricia janina and water, urine output is normal, a little less maybe. Other symptoms are: none. CURRENT MEDICATIONS: Yes: Outpatient prescriptions prior to encounter Medication Sig Dispense Refill ??? DILAUDID OR None Entered HOME TREATMENT: More than 5 liquid stools in 24 hrs: clear liquids with calories, no caffeine alcohol, or fruit juice Fewer than 5 liquid stools: no fruit juice, no dairy products, decrease roughage, bland, lowfat diet Decrease stress, increase rest TRIAGE REFERENCE: VOMITING - ADULT CNG (c) 2009 CONCERN: vomiting last night and into early childhood worker. STAT SYMPTOMS: None per guideline Duration: I quit vomiting today. Quality: other Amount: none today Symptoms of dehydration: None Other symptoms: none. PLAN: Home treat & monitor symptoms, call back if they increase or if concerns Pt/caller verbalized understanding/confirmation and is agreeable to plan. Advised pt/caller to call us back for any changes in s/sx/status - reviewed with pt. Reviewed worsening/STAT s/sx that would require pt/caller to call back or be evaluated promptly. Risks and rationaleof not following recommendations were discussed with pt/caller. Advised pt/caller can call Careline anytime 26/04 with any questions, concerns, change in s/sx, and that Careline nurses are here to help.Verbalized understanding/confirmation and is agreeable to plan Екатерина Mazariegos RN ER OPERATOR Kendra Pruitt - 08/24/2011 8:18 PM CST Does the patient currently have [employer] insurance?Yes Which care system is the patient affiliated with?OTHER [facility] What would caller have done if the CareLine were not available?Make Appointment Situation:Pt states that she has vomiting and diarrhea. Plan:A nurse will call you back within the hour. If you have not received a callback, please call [phone] and state that you are waiting for a callback. ER OPERATOR documented in this encounter Plan of Treatment Not on filedocumented as of this encounter Visit Diagnoses Not on filedocumented in this encounter Care Teams Elementary Secretary Relationship Specialty Start Date End Date Titus Medina MD PCP - General 09/16/1996 03/17/15 documented as of this encounter
--- OUTSIDE RECORDS SUMMARY | 2022-07-30 19:44 | XMS_ITS | Encounter Summary ---
:1945 Author Organization [facility] Address [address] [place] [address] Care Team Providers Name Role Phone Titus Medina MD Primary Care Provider Encounter Details Date Type Department Care Team Description 04/23/2014 Notes/Orders [place] [facility], [facility] PT [address] [facility] [address] [place], [place] [address] [place] [address] [phone] (Wo rk) Social History Tobacco Use Types Packs/Day Years Used Date Smoking Tobacco: Never Assessed Sex Assigned at Date Recorded Not on file documented as of this encounter Progress Notes Adi Jones, PT - 08/21/2014 7:28 AM CST Encounter Date: 04/23/2014 Pt : 1945 [facility] Physical Therapy Discharge Summary Patient was evaluated on 01/09. She was seen for 6 visits through 04/23. Patient's attendance to therapy was inconsistent. Standardized test results: Knee Outcome - ADL Initial - date: 01/09 score:64% Final - date: 04/23 score:86% Clinical Global Impression (CGI) Initial - date: score: Final - date: score: Goal Achievement: HEP/Independent Management: Demonstrate independence with HEP and self- management following each treatment session ADL's: Squat to pickle solution maker items from floor with minimal/no symptoms in 4 weeks. Negotiate stairs without dropping down onto L leg in 4 weeks Work: transfer stand to sit and sit to investment counselor 4 weeks. Reason for Discharge: Patient has met her therapy goals or therapist expects patient to meet goals through home program. Discharge recommendations: Patient will continue to work independently with home program/self management strategies. Primary therapist: Discharge therapist Program Group: Musculoskeletal, Knee documented in this encounter Plan of Treatment Not on filedocumented as of this encounter Visit Diagnoses Not on filedocumented in this encounter Care Teams Law Reporter Relationship Specialty Start Date End Date Titus Medina MD PCP - General 09/16/1996 03/17/15 documented as of this encounter
--- OUTSIDE RECORDS SUMMARY | 2022-07-30 19:44 | XMS_ITS | Encounter Summary ---
:1945 Author Organization [facility] Address [address] [place] [address] Care Team Providers Name Role Phone Titus Medina MD Primary Care Provider Reason for Visit Reason Comments Knee Pain or Injury Encounter Details Date Type Department Care Team Description 04/30/2011 Initial Consult [facility] John Jones er Knee pain, right Therapy D, PT (Primary Dx) [address] [place] [address] [phone] Social History Tobacco Use Types Packs/Day Years Used Date Smoking Tobacco: Never Assessed Sex Assigned at Date Recorded Not on file documented as of this encounter Progress Notes Adi Jones, PT - 04/30/2011 4:31 PM CDT Physical Therapy Knee Evaluation/Plan of Care Initial Certification Period: 04/30/2011 to 05/29/11 Referring Provider: Kevin Rivera Diagnosis: Right Knee pain. L hip Orders: Evaluate and treat. Date of Onset: 04/30/2011 History of Onset: patient states that her R knee has been bothering her for about 1.5 years now and her L hip just started bothering her about 3 mos ago. There was no trauma or event that caused this pain but a gradual increase in pain over time. SUBJECTIVE: Pain Ratin/10 Past Medical History: See Electronic Medical Record for past medical history, medications, and drug allergies. Falls in Past Year: No. Previous treatment: Patient has not received any physical therapy for this condition. 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 OBJECTIVE: General: Mood, orientation, and behavior were appropriate. Patient was alert and oriented. ROM: Extension in R knee full, flexion knee 125 degrees with pain. L hip limited in all planes with IR greater then ER greater then flexion. Flexibility: Bilateral hip flexor tighness Joint mobility: capsular tighness anterior knee and patella with superior glides on the R and on theL posterior, inferior capsule. Palpation: Tender: Patellar tendon. }Proprioception: Single leg stance: Decreased R and L equal Functional Tests: Double leg squat: Pain and reduced by 25% Standardized Functioinal Scores: Knee Test: 69% TREATMENT TODAY -Physical Therapy Evaluation (CPT 15152). An evaluation was performed. The patient was educated on the condition, planned therapy intervention and expectations from treatment. Goals were a collaborative effort of the therapist and patient. -Manual Therapy, 1 or more regions (CPT 44800) - 15 minutes: joint mobilization to the L hip with lateral distraction, posterior capsule glides. R knee patellar inferior glides and anterior capsular joint mobilization. -Therapeutic exercise (CPT 02630) - 10 minutes: Established home exercise program with lunges x 20, wall sits x 20 and also bridging x 20. Education/Handouts: Diagnosis education. Response to treatment: Increase in range of motion. DeaeMENT: Therapist Impression: L hip OA and mechanical knee pain both of which will respond well to physical therapy. Practice Pattern: Impaired joint mobility, motor function, muscle performance, and ROM associated with connective tissue dysfunction (4D). Functional Limitations: Transfers. Household management. Leisure. Limitations due to: Muscle weakness. Joint pain (719.46). Joint stiffness (719.56). Barriers to Learning: No apparent barriers to learning. Rehab Prognosis: Good to achieve stated goals. PLAN: Planned Intervention/Education: Manual therapy. Therapeutic exercise. PT Frequency/Duration: 1 time per week. Plan for next treatment session: Focus on progressing strength and assessing pain in knee. Consent: Risks, benefits and alternatives to treatment have been explained. Patient and/or family inagreement with care plan. Expected Functional Outcomes: Patient will: Patient will be able to perform sit to stand transfer using involved lower extremity in 2-4 weeks. Patient will be able to ascend/descend stairs independently with minimal to no symptoms in 2-4 weeks. Patient will be able to squat to curing pickling packer items from floor with minimal to no symptoms in 1-2 weeks. Total treatment time: 45 minutes. Evaluation and Plan of Care completed by: Marlon Jones, PT, 3[address] The real estate closing coordinator is completed by the therapist and the physician electronic signature certifies medical necessity for the plan above. *SH~TRIA~KNEEEVAL ~ Shorthand Note completed on: 04/30/2011 4:31 PM documented in this encounter Plan of Treatment Not on filedocumented as of this encounter Visit Diagnoses Diagnosis Knee pain, right - Primary Pain in joint, lower leg documented in this encounter Care Teams Assistant Child Care Teacher Relationship Specialty Start Date End Date Tiuts Medina MD PCP - General 09/16/1996 03/17/15 documented as of this encounter
--- OUTSIDE RECORDS SUMMARY | 2022-07-30 19:44 | XMS_ITS | Encounter Summary ---
:1945 Author Organization [facility] Address [address] [place] [address] Care Team Providers Name Role Phone Titus Medina MD Primary Care Provider Reason for Referral Specialty Diagnoses / Procedures Referred By Contact Refer red To Contact Pascual Parker MD Referral ID Status Reason Start Date Expiration Date Visits Requ ested Visits Authorized Reason for Visit Reason Comments Knee Problem Encounter Details Date Type Department Care Team Description 01/09/2014 Initial Consult Adi Covarrubias Remy lofemoral syndrome, right; Physical Therapy D, PT DJD (degenerative joint disease) of knee [address] [place] [address] [phone] Social History Tobacco Use Types Packs/Day Years Used Date Smoking Tobacco: Never Assessed Sex Assigned at Date Recorded Not on file documented as of this encounter Progress Notes Adi Jones, PT - 01/09/2014 10:56 AM CDT Date of Service: 01/09/2014 Pt : 1945 [facility] Physical Therapy Knee Evaluation/Plan of Care Initial Certification Period: 01/09/2014 to 02/08/14 Referring Provider: Pascual Parker Referring Diagnosis: Knee pain Visit Diagnosis/ICD code: Diagnosis (ICD9) ICD-9-CM 1. 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 DJD (patellofemoral compartments) of knees 715.96 Precautions: None Orders: Evaluate & treat Onset/Referral Date: Last few months SUBJECTIVE Reason for Visit: Patient complains of giving way, weakness and lack of control over the last few months in relation to her R lower extremity most noticeably her R knee. She states that she can at times get pain but this is often limited to unpredictable jabs but feels weak with transfering out of or into a chair and also with going down stairs. Patient Therapy Goals:Resume previous level of activity symptom free. Past Medical History: Past medical history, medication, and allergies were reviewed in the electronic medical record. 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 Enjoys walking but has been limited this winter with heractivity. OBJECTIVE Observation: Right: quad atrophy on the R Gait Exam: Trendelenberg Edema:Not performed Screening: Nothing noted ROM: PROM Right Extension ROM: pain with overpressure both posterior knee and anterior distal to the patella Flexion ROM: pain with anterior knee at end range of motion Strength: Right: able to perform a SLR without a lag on the R but visible atrophy on the R. Decreased hip extension stretch with functional activities such as transfers Joint Mobility: Right: Tibiofemoral hypomobile Palpation: Right tender: Patellar tendon Special Tests (+ is a positive finding, - is a negative finding)Not tested. Proprioception: Single leg stance: decreased on the R and L Functional Tests: Single leg squat: decreased control and strength Double leg squat: pain anterior knee Flexibility: Hip flexors: R tightness Core Strength: fair Knee Outcome Score: 66% Today's Intervention/Charges: Physical Therapy Evaluation was completed and the patient was educated on the condition, planned therapy intervention and expectations from treatment. Therapeutic exercise x 15 minutes: established home exercise program that included wall slides x 20 reps, bridging x 20 reps, SLR x reps and also clam x 20 reps. Patient also demonstrated to me calf stretching for both her gastroc and soleus musculature. Manual therapy x 10 minutes: joint mobilization to the R knee at full flexion with AP and PA glides also soft tissue mobilization to the posterior patellar tendon and also tibia on femur joint mobilization into extension. Education/Handouts: Diagnosis Education Total Treatment Time: 45 minutes ASSESSMENT Therapist Impression/Summary: R knee pain/giving way secondary to weakness. Recommendations/Equipment: No additional recommendations at this time Significant Impairments: Pain, Muscle weakness, Joint hypomobility, ROM Limitation Functional Limitations: difficulty with household tasks, difficulty meeting work demands, difficultywith sports/leisure activities and difficulty with stairs Goals/Functional Outcomes: HEP/Independent Management: Demonstrate independence with HEP and self- management following each treatment session ADL's: Squat to pickers material handlers items from floor with minimal/no symptoms in 4 weeks. Negotiate stairs without dropping down onto L leg in 4 weeks Work: transfer stand to sit and sit to industrial sales manager 4 weeks. Barriers to Goal Achievement or Learning: none Prognosis: Good PLAN Planned Intervention/Education: Manual Therapy, Neuromuscular Re-education, Therapeutic Exercise Frequency: 1 x week Duration: 30 days Discharge Plan: Patient will be discharged from therapy when goals are achieved or patient plateaus in progress. Informed Consent: Patient and/or family in agreement with the care plan. Plan for Next Treatment: Follow up with progression to wt bearing and eccentric loading. The restaurant area manager is completed by the therapist and the referring clinician's electronic signature certifies medical necessity for the plan above. 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
--- OUTSIDE RECORDS SUMMARY | 2022-07-30 19:44 | XMS_ITS | Encounter Summary ---
:1945 Author Organization [employer] [employer] Address [address] [place] [address] Care Team Providers Name Role Phone Titus Medina MD Primary Care Provider Reason for Visit Reason Comments Cough Pharyngitis FACIAL PAIN Encounter Details Date Type Department Care Team Description 08/02/2012 Hospital Encounter [facility] 38[address] Arturo Fraser MD [facility] [address] [place], [place] [address] [place] [address] [phone] Social History Tobacco Use Types Packs/Day Years Used Date Smoking Tobacco: Never Assessed Sex Assigned at Date Recorded Not on file documented as of this encounter Last Filed Vital Signs Vital Sign Reading Time Taken Comments Blood Pressure 160/72 08/02/2012 7:39 PM CDT Pulse 73 08/02/2012 7:28 PM CDT Temperature 36.9 ??C (98.4 ??F) 08/02/2012 7:28 PM CDT Respiratory Rate 16 08/02/2012 7:28 PM CDT Oxygen Saturation 98% 08/02/2012 7:28 PM CDT Inhaled Oxygen Concentration - - Weight - - Height - - Body Mass Index - - documented in this encounter Medications at Time of Discharge Medication Sig Dispensed Refills Start Date End Date amoxicillin (aka AMOXIL) Take 1 capsule by 30 capsule 1 07/0608/12/2012 capsule mouth 3 times daily for 10 days. fluconazole (aka diFLUcan) Take 1 tablet by 2 tablet 0 10/27/2012 tablet mouth. If develops yeast infection. May repeat. Calcium Take 1,200 mg by 0 08/02/2012 04/10/20 16 Carb-Cholecalciferol mouth. 600-1000 MG-UNIT TABS Calcium Take 1,200 mg by 0 08/02/2012 04/12/20 19 Carb-Cholecalciferol mouth. 600-1000 MG-UNIT TABS Cholecalciferol 2000 UNITS Take by mouth. 0 08/0204/12/2019 Cholecalciferol CAPS Take by mouth. 0 08/02/2012 04/10/2016 DILAUDID OR None Entered 0 10/31/2007 04/12/2019 GLUCOSAMINE CHONDROITIN Take by mouth. 0 08/02/20 12 04/10/2016 COMPLX CAPS Qqgkxuynjcq-Cbqspifjk-Nfg Take by mouth. 0 201104/12/2019 C-Mn (GLUCOSAMINE CHONDROITIN COMPLX) Magnesium 200 MG Take 800 mg by 0 08/02/201204/03 mouth. Magnesium TABS Take 800 mg by 0 08/02/20122015 mouth. [place]-3 Fatty Acids (SUPER Take by mouth. 0 08/0204/12/2019 OMEGA 3 EPA/DHA OR) SUPER OMEGA 3 EPA/DHA OR Take by mouth. 0 012 04/10/2016 documented as of this encounter ED Notes Kong Fraser MD - 08/02/2012 8:50 PM CDT ED Provider Notes signed by Kong Fraser MD at 08/03/12 1502 Author: Kong Fraser MD Service: (none) Author Type: Physician Filed: 08/03/12 1506 Note Time: 08/02/122049 Status: Signed Junior Assistant Manager: Kong Fraser MD (Physician) NAME: YIMI GARCIA MR#: [id number] CSN: [id number] AUTHENTICATING CLINICIAN: Kong Fraser MD CONFIRM #: [id number] LOC: 420 URGENT CARE PROGRESS NOTE DATE OF VISIT: 08/02/2012 : 1945 CHIEF COMPLAINT: This is a 66-year-old female who comes in complaining of a cough and congestion. The patient states she has had this for approximately 2 weeks and it is not improving. Patient is also complaining of facial pain, more prominent on her left side. The patient is not sure if she has had a fever, is coughing up yellowish sputum. Denies any shortness of breath. PAST MEDICAL HISTORY: Significant for serious sinus infection. SOCIAL HISTORY: The patient is a nondrinker, nonsmoker. REVIEW OF SYSTEMS: The patient denies fever, chills in the last day or so. Is bringing up yellowish sputum when she coughs. Also noticed yellowish-greenish material coming from her nose. PHYSICAL EXAMINATION: Well developed, well nourished, appears to be in no acute distress. HEENT: Exam reveals both ears have retracted TMs, but no evidence of redness. Throat is slightly red. The patient has significant yellowish postnasal discharge. Nose is very congested. Examination of face reveals pain with palpation over the maxillary sinuses on both sides. LUNGS: Clear to auscultation and percussion. ASSESSMENT: Sinusitis. PLAN: Patient is given a prescription for amoxicillin 500 t.i.d. for 10 days with 1 refill. Patient is also given prescription for Diflucan 200 mg to take in case she gets yeast infections with a 2nd tablet available to her. AGC:MEDQ C: CONFIRM #: [id number] documented in this encounter Miscellaneous Notes Medication History - Jose Obando MD - 08/02/2012 8:27 PM CDT INPATIENT MEDS Encounter Date: 08/02/12 fluconazole (DIFLUCAN) 200 mg tablet Start Date:08/02/12, End Date:10/27/12, Frequency:- *No Administrations Recorded amoxicillin (AMOXIL) 500 mg capsule Start Date:08/02/12, End Date:08/12/12, Frequency:3 TIMES DAILY *No Administrations Recorded Calcium Carbonate-Vitamin D3 600mg (1,000mg) -1,000 unit Tab Start Date:-, End Date:-, Frequency:- *No Administrations Recorded Cholecalciferol, Vitamin D3, 2,000 unit Cap Start Date:-, End Date:-, Frequency:- *No Administrations Recorded GLUC/FAHEEM-MSM#1/VIT C/RADHIKA/BOR (ASQCNKCPOOT-JXTAX-RKX COMPLEX ORAL) Start Date:-, End Date:-, Frequency:- *No Administrations Recorded Adqnl-8-NBO-EPA-Fish Oil 805-1,000 mg Cap Start Date:-, End Date:-, Frequency:- *No Administrations Recorded Magnesium 200 mg Tab Start Date:-, End Date:-, Frequency:- *No Administrations Recorded documented in this encounter Plan of Treatment Not on filedocumented as of this encounter Visit Diagnoses Diagnosis Cough Triage Assessment Note - Ines Rondon RN - 08/02/2012 7:24 PM CDT x 1 week x 3 days x 3 week documented in this encounter Care Teams Delivery Rn Relationship Specialty Start Date End Date Titus Medina MD PCP - General 09/16/1996 03/17/15 documented as of this encounter
--- OUTSIDE RECORDS SUMMARY | 2022-07-30 19:44 | XMS_ITS | Encounter Summary ---
:1945 Author Organization [facility] Address [address] [address] Care Team Providers Name Role Phone Titus Medina MD Primary Care Provider Encounter Details Date Type Department Care Team Description 11/27/2013 Orders Only [facility] Claims MD Jayashree Security Contact Bill [address] [place] [address] Mailstop [id number] [phone] (Wo rk) Social History Tobacco Use Types Packs/Day Years Used Date Smoking Tobacco: Never Assessed Sex Assigned at Date Recorded Not on file documented as of this encounter Plan of Treatment Not on filedocumented as of this encounter Visit Diagnoses Not on filedocumented in this encounter Care Teams Neighborhood Conservation Officer Relationship Specialty Start Date End Date Titus Medina MD PCP - General 09/16/1996 03/17/15 documented as of this encounter
--- OUTSIDE RECORDS SUMMARY | 2022-07-30 19:44 | XMS_ITS | Encounter Summary ---
:1945 Author Organization [facility] Address [address], [place] [address] Care Team Providers Name Role Phone Titus Medina MD Primary Care Provider Reason for Visit Reason Comments Other Encounter Details Date Type Department Care Team Description 04/02/2010 Telephone [facility] [address] [facility], Message Other [address] 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 States she has been taking the Cipro since prescribed and was feeling better until early this morning when the discomfort, burning, urgency woke her. Denies unusual vaginal dischrg., flank pain, bleeding, fever (98.5) or other sx. Per Dr. Cheng, pt. needs to be reevaluated. Pt. agrees w/plan. Will f/u with her primary provider or return to Urgent Care. ESSIONAL ARCHITECT documented in this encounter Plan of Treatment Not on filedocumented as of this encounter Visit Diagnoses Not on filedocumented in this encounter Care Teams Shift Leader Relationship Specialty Start Date End Date Titus Medina MD PCP - General 09/16/1996 03/17/15 documented as of this encounter
--- OUTSIDE RECORDS SUMMARY | 2022-07-30 19:44 | XMS_ITS | Encounter Summary ---
:1945 Author Organization [facility] Address [address] [place] [address] Care Team Providers Name Role Phone Titus Medina MD Primary Care Provider Reason for Visit Reason Comments Knee Problem Encounter Details Date Type Department Care Team Description 01/16/2014 Office Visit [facility] Adi Jones Knee pain (Primary Therapy D, PT Dx) [address] [place], [place] [address] [phone] (Wo rk) Social History Tobacco Use Types Packs/Day Years Used Date Smoking Tobacco: Never Assessed Sex Assigned at Date Recorded Not on file documented as of this encounter Progress Notes Adi Jones D, PT - 01/16/2014 7:50 AM CDT Encounter date: 01/16/2014 Pt : 1945 [facility] Physical Therapy Progress Note Initial Certification Period: 01/09/2014 to 02/08/14 Referring Provider: Pascual Parker Referring Diagnosis: Knee pain Visit Diagnosis/ICD code: Diagnosis (ICD9) ICD-9-CM 1. 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 DJD (patellofemoral compartments) of knees 715.96 Precautions: None Orders: Evaluate & treat Onset/Referral Date: Last few months SUBJECTIVE: Patient states that she has noticed how weak she really is and how tired the exercises make her. Macs state that she has noticed some problems with her ankle. She states that her R ankle has been aproblem for a while and that she was going to seek care from her physician. She also wants to know how to get off of the floor OBJECTIVE Current Objective Findings: Ankle pain with inversion on end range of motion and mildly on eversion on end range of motion. DF normal. Treatment/Education Today: Tx included joint mobilization to the R ankle with lateral glides to the subtalar and midfoot and posterior glides into DF at the talocrural joint. Wall squats x 15 reps. Supported lunges x 15 reps on each side to 4 in box. Step downs x 20 reps R and L. Performed floor transfers from kneeling lunge position x 2 patient was then able to perform without problem. Total Treatment Time: 25 minutes Current Home Exercise Program List: See eval ASSESSMENT/PROGRESS TOWARD GOALS: Blane tx well. Post tx patient is able to demonstrate minimal ankle pain with lunging and able to get up and down from the floor. p Functional Goals/Outcomes: HEP/Independent Management: Demonstrate independence with HEP and self- management following each treatment session ADL's: Squat to grape picker items from floor with minimal/no symptoms in 4 weeks. Negotiate stairs without dropping down onto L leg in 4 weeks Work: transfer stand to sit and sit to fence installer 4 weeks. Plan: Patient needs to continue to focus on strength, add lunges with support and step downs at next visit. Therapeutic Exercises 50938 15 min Manual therapy 31161 10 min Total tx time 25min Marlon Jones PT [id number] documented in this encounter Plan of Treatment Not on filedocumented as of this encounter Visit Diagnoses Diagnosis Knee pain - Primary Pain in joint, lower leg documented in this encounter Care Teams Hide Mill Worker Relationship Specialty Start Date End Date Titus Medina MD PCP - General 09/16/1996 03/17/15 documented as of this encounter
--- OUTSIDE RECORDS SUMMARY | 2022-07-30 19:44 | XMS_ITS | Encounter Summary ---
:1945 Author Organization [facility] Address [address], [place] [address] Care Team Providers Name Role Phone Titus Medina MD Primary Care Provider Encounter Details Date Type Department Care Team Description 03/16/2014 Orders Only [facility] Claims MD Jayashree Security Contact Bill [address] [place] [address] Mailstop [id number] [phone] (Wo rk) Social History Tobacco Use Types Packs/Day Years Used Date Smoking Tobacco: Never Assessed Sex Assigned at Date Recorded Not on file documented as of this encounter Plan of Treatment Not on filedocumented as of this encounter Visit Diagnoses Not on filedocumented in this encounter Care Teams Grain Oilseed Or Pasture Grower Relationship Specialty Start Date End Date Titus Medina MD PCP - General 09/16/1996 03/17/15 documented as of this encounter
--- OUTSIDE RECORDS SUMMARY | 2022-07-30 19:44 | XMS_ITS | Encounter Summary ---
:1945 Author Organization [facility] Address [address] [place] [address] Care Team Providers Name Role Phone Titus Medina MD Primary Care Provider Reason for Visit Reason Comments Knee Problem Encounter Details Date Type Department Care Team Description 04/23/2014 Office Visit [facility] Adi Jones Knee pain (Primary Therapy D, PT Dx) [address]. [address] [place], [place] [address] [phone] (Wo rk) Social History Tobacco Use Types Packs/Day Years Used Date Smoking Tobacco: Never Assessed Sex Assigned at Date Recorded Not on file documented as of this encounter Progress Notes Adi Jones, PT - 04/23/2014 10:57 AM CDT Encounter date: 04/23/2014 Pt : 1945 [facility] Physical Therapy Progress Note Initial Certification Period: 01/09/2014 to 02/08/14 Referring Provider: Pascual Parker Referring Diagnosis: Knee pain Visit Diagnosis/ICD code: Diagnosis (ICD9) ICD-9-CM 1. 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 DJD (patellofemoral compartments) of knees 715.96 Precautions: None Orders: Evaluate & treat Onset/Referral Date: Last few months SUBJECTIVE: Patient states that she is doing very well. She states that overall her pain is gone and only feels it with very challenging activities and then it disappears quickly. OBJECTIVE Current Objective Findings: Outcome tool 86% Treatment/Education Today: Patient requests guidance with transferring from floor to stand. Patient instructed to go to a 1/2 kneeling position and then to the floor and also to rise up in reverse. She is able to do this to her surprise without the use of her hands and performed it x 2 Total Treatment Time: 20 minutes Current Home Exercise Program List: See eval ASSESSMENT/PROGRESS TOWARD GOALS: Blane tx well. Met goals and ready for DC Functional Goals/Outcomes: HEP/Independent Management: Demonstrate independence with HEP and self- management following each treatment session ADL's: Squat to picking machine operator helper items from floor with minimal/no symptoms in 4 weeks. Negotiate stairs without dropping down onto L leg in 4 weeks Work: transfer stand to sit and sit to director of brand marketing 4 weeks. Plan: DC PT. Therapeutic Exercises 83206 15 min Marlon Jones PT [id number] documented in this encounter Plan of Treatment Not on filedocumented as of this encounter Visit Diagnoses Diagnosis Knee pain - Primary Pain in joint, lower leg documented in this encounter Care Teams Pickle Pumper Relationship Specialty Start Date End Date Titus Medina MD PCP - General 09/16/1996 03/17/15 documented as of this encounter
--- OUTSIDE RECORDS SUMMARY | 2022-07-30 19:44 | XMS_ITS | Encounter Summary ---
:1945 Author Organization [facility] Address [address] [address] Care Team Providers Name Role Phone Titus Medina MD Primary Care Provider Encounter Details Date Type Department Care Team Description 04/16/2010 Orders Only HP Claims MD Jayashree Security Contact Bill [address] [place] [address] Mailstop [phone] (Wo rk) Social History Tobacco Use Types Packs/Day Years Used Date Smoking Tobacco: Never Assessed Sex Assigned at Date Recorded Not on file documented as of this encounter Plan of Treatment Not on filedocumented as of this encounter Visit Diagnoses Not on filedocumented in this encounter Care Teams Facility Rehab Director Relationship Specialty Start Date End Date Titus Medina MD PCP - General 09/16/1996 03/17/15 documented as of this encounter
--- OUTSIDE RECORDS SUMMARY | 2022-07-30 19:44 | XMS_ITS | Encounter Summary ---
:1945 Author Organization [facility] include [facility] beds at the [facility] Address [address] [place] [address] Care Team Providers Name Role Phone Titus Medina MD Primary Care Provider Encounter Details Date Type Department Care Team Description 02/01/2011 PN Conversion Only [facility] Margot Pavon MD [facility] [address] [place] [id number] [phone] Social History Tobacco Use Types Packs/Day Years Used Date Smoking Tobacco: Never Assessed Sex Assigned at Date Recorded Not on file documented as of this encounter Plan of Treatment Not on filedocumented as of this encounter Visit Diagnoses Not on filedocumented in this encounter Care Teams Microbial Specialist Relationship Specialty Start Date End Date Titus Medina MD PCP - General 09/16/1996 03/17/15 documented as of this encounter
--- OUTSIDE RECORDS SUMMARY | 2022-07-30 19:44 | XMS_ITS | Encounter Summary ---
:1945 Author Organization [facility] Address [address] [place] [address] Care Team Providers Name Role Phone Titus Medina MD Primary Care Provider Reason for Visit Reason Comments Hip Problem Encounter Details Date Type Department Care Team Description 09/03/2011 Office Visit [facility] Adi Jones Hip pain, left Therapy D, PT (Primary Dx) [address] [place], [place] [phone] (Wo rk) Social History Tobacco Use Types Packs/Day Years Used Date Smoking Tobacco: Never Assessed Sex Assigned at Date Recorded Not on file documented as of this encounter Progress Notes Adi Jones, PT - 03/14/2012 8:26 AM CDT Physical Therapy Discharge Summary Referring Physician: Kevin Rivera Diagnosis: Bilateral patellar femoral arthritis Onset Date: 04/27/2011 Date of First Visit: 04/30/2011 Date of Last Visit: 09/03/2011 Total Visits: 4 Missed Appointments: 0 Examination/Evaluation: See evaluation in Electronic Medical Record completed on the first visit date (listed above). Treatment and education Received: Refer to progress notes in Electronic Medical Records. 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 Discharge Recommendation: Patient will continue to work independently with home program/self management strategies. Therapist instructed patient to call with questions or concerns regarding the home program. Outcome Measures: Primary Therapist: Discharging therapist is primary therapist. Program Group: Musculoskeletal - knee. Standard Tests: Knee Test (Date: Score): 1. 04/30/2011: 69% 2. 09/03/2011: 84% Electronically signed by: Marlon Jones, PT, [id number], 03/14/2012 *SH~REHAB~DISCHARGE~ Shorthand Note completed on: 03/14/2012 8:26 AM Adi Jones, PT - 09/04/2011 7:00 AM CST Physical Therapy Lower Extremity Evaluation/Plan of Care Initial Certification Period: 07/27/2011 to 09/08/11 Referring Provider: Kevin Love Referring Diagnosis: bilateral knee pain and L hip pain Orders: Evaluate and treat. Onset Date: 07/27/2011 History of Onset: Patient states that dating back to her last visit in physical therapy in April she has been able to work on her exercises but has not been able to come back to physical therapy. 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 Is frustrated that she can not rise up off the floor without help and has pinching in her L hip. All of this has come one without any trauma or incident despite the fact that she has done her exercises that she was given and can now do 20 reps of the three exercises. SUBJECTIVE: Patient states that she is doing much better. Her R foot pain is resolved. Feels like she is walking normally now without pain. However does continue to get pain with random pivoting at home while working around her house. This is on the outside of her L hip and it occurs when she is making a sharp turn to the L. Otherwise patient feels like she is doing very well. OBJECTIVE: Pain with L leg standing with trunk rotation and pelvic rotation. Gait normalized. tx included soft tissue mobilization to the L lateral aspect of the hip with IR/ER. Manual stretch to the Lhip into hip abduction and ER/IR. standing hip IR/ER on the L x 20 reps x20 reps. manual stretch into ER at the L hip. functional mobilization to the L leg circumferentially. Discussed progressing homeexercise program x 30 reps each before she can hault her program. Also encouraged increased winter activity. ASSESSMENT: Blane tx well. No pain with walking and no pain with pivoting on L leg. Progressed to DC. Met goals. PLAN DC PT Therapeutic Exercises 24427 10 Manual therapy 79378 15 min Total tx time 25min Marlon Jones PT [id number]' documented in this encounter Plan of Treatment Not on filedocumented as of this encounter Visit Diagnoses Diagnosis Hip pain, left - Primary Pain in joint, pelvic region and thigh documented in this encounter Care Teams Raised Printer Relationship Specialty Start Date End Date Titus Medina MD PCP - General 09/16/1996 03/17/15 documented as of this encounter
--- OUTSIDE RECORDS SUMMARY | 2022-07-30 19:44 | XMS_ITS | Encounter Summary ---
:1945 Author Organization [facility] Address [address] [place] [id number] Care Team Providers Name Role Phone Lisseth Vang MD Primary Care Provider [phone] Reason for Visit Reason Comments Preop Exam Encounter Details Date Type Department Care Team Description 04/19/2017 Office Visit [facility] Nicolle Orlando PA-C Preop general physical exam (Primary Dx) ; Practice [address] [facility] Urge incontinence; [address] Urinary urgency; [place] [address] [place], [place] Weak urine stream [phone] (Wo rk) Social History Tobacco Use Types Packs/Day Years Used Date Smoking Tobacco: Never Smokeless Tobacco: Never Alcohol Use Standard Drinks/Week Comments No 0 (1 standard drink = 0.6 oz pure alcoho l) Sex Assigned at Date Recorded Not on file documented as of this encounter Last Filed Vital Signs Vital Sign Reading Time Taken Comments Blood Pressure 128/73 04/19/2017 8:11 AM CDT Pulse 76 04/19/2017 8:11 AM CDT Temperature - - Respiratory Rate - - Oxygen Saturation - - Inhaled Oxygen Concentration - - Weight 80.3 kg (177 lb) 04/19/2017 8:11 AM CDT Height 168.9 cm (5' 6.5) 04/19/2017 8:11 AM CDT Body Mass Index 28.14 04/19/2017 8:11 AM CDT documented in this encounter Patient Instructions Patient InstructionsNicolle Orlando PA-C - 04/19/2017 8:00 AM CDT On the day of surgery [...] anything by mouth the night before your procedure-no eating after midnight the night prior to your procedure. However, some medications should not be held forsurgery because they are beneficial, and some medications need special attention. Medications I recommend you take with a small sip of water up until surgery include: ?? Ipratropium nasal solution ?? Fluticasone-nasal solution ?? Azelastine-nasal solution Medications that require special changes include: ?? ACEI/ARB medications: omit one dose before surgery. ?? aspirin: stop 7 days before surgery ?? NSAIDS (arthritis medications): stop 3 days before surgery We will notify you when lab results are available. We will notify you when your pre-op clinic note is available, if you would like to come and fruit or nut picker a copy. Thank you, Nicolle Orlando PA-C 04/19/2017, 8:40 AM documented in this encounter Progress Notes Nicolle Orlando PA-C - 04/19/2017 8:09 AM CDT Pre-operative History and Physical Assessment Name: Yamileth Sheikh : 1945 Primary physician: Lisseth Vang MD. Historical: Yamileth Sheikh is a 71 y.o. old female who is here for preoperative cardiac and risk evaluation.Patient is scheduled for InterStim generator replacement on 04/27/[address] Carlota Landeros at [facility] [place]. Pertinent history: Yamileth has a hx of urge incontinence, urinary urgency and weak urine stream. She underwent an InterStim implant on 05/19/2011, and midurethral sling on 03/26/2016. The sling was placed for incontinence. The InterStim was placed for issues with urinary dribbling/detrusor underactivity. She is no longer feeling the stimulator, and her generator no longer interacts with the programming device. Suspect that the battery requires replacing in the InterStim. Preoperative Screening Questions: Any problems with / [...] clotting problems for you or close relatives? no Herbal supplements or medications not on the med list being taken? no Taking steroids or immunosuppressive medications. no Aspirin or NSAIDS taken in the last two weeks? no Anemia or taking iron pills? no Anesthesia complications for you or close relatives? YES: PATIENT ALLERGIC TO PROPOFOL History of sleep apnea, loud snoring, daytime drowsiness or CPAP at home? no Heart attack in the last 30 days? no Recent memory problems (dementia)? no Is there a history of COPD(emphysema) or asthma? no Estimated Functional Capacity: Can you climb one flight of stairs, or walk up a gradual uphill without stopping? yes, functional capacity is more than or equal to 4 METS Medications: Current Outpatient Prescriptions Medication Sig Note Dispense Refill ??? Ascorbic Acid (VITAMIN C) 250 MG tablet Take 250 mg by mouth. 03/19/2015: Received from: [facility] ??? azelastine (AKA ASTELIN) 0.1 % nasal solution Place 1 spray into each nostril 2 times daily. Usein each nostril as directed ??? azelastine (ASTELIN) 0.1 % nasal solution 1-2 Sprays by Nasal route. 03/19/2015: Received from: [facility] ??? B Complex Vitamins (VITAMIN B COMPLEX OR) Take 1 Tab by mouth. 03/19/2015: Received from: [facility] ??? B COMPLEX-C OR Take 1 capsule by mouth daily (every 24 hours). ??? Calcium Carb-Cholecalciferol 600-1000 MG-UNIT TABS Take 1,200 mg by mouth. ??? Calcium Citrate-Vitamin D 200-125 MG-UNIT Take 2 Tabs by mouth. 03/19/2015: Received from: [facility] ??? cholecalciferol (VITAMIN D3) 1000 UNITS tablet Take 2 Tabs by mouth. 03/19/2015: Received from: [facility] ??? Cholecalciferol 2000 UNITS Take by mouth. ??? DILAUDID OR None Entered ??? diphenhydrAMINE (BENADRYL) 25 MG capsule Take 25 mg by mouth 2 times daily. ??? DRUG NOT IN COMPUTER Indications: PN: HARIS CHAVARRIA WedDec 10, 2014 11:20 AM Tumeric ??? estradiol (ESTRACE VAGINAL) 0.1 MG/GM vaginal cream Insert 2 g vaginally. 03/19/2015: Received from: [facility] ??? Estradiol (ESTRING VA) Place vaginally. ??? ESTRADIOL VAGINAL (AKA ESTRING) 2 MG vaginal ring Insert 1 Each vaginally. 03/19/2015: Received from: [facility] ??? Garlic 500 MG Take by mouth. ??? Adin, Zingiber officinalis, (ADIN OR) Take by mouth. ??? Vvxxqojfufn-Unzucgbvc-Vsd C-Mn (GLUCOSAMINE CHONDROITIN COMPLX) Take by mouth. ??? Glucosamine-Chondroitin 500-400 MG Take 1 Tab by mouth two times a day. 03/19/2015: Received from: [facility] Received Sig: ??? hydrocortisone-pramoxine (AKA PROCTOFOAM-HC) 1-1 % rectal foam Insert 1 Applicator rectally. 03/19/2015: Received from: [facility] ??? hydrocortisone-pramoxine (PROCTOFOAM-HC) 1-1 % rectal foam Indications: PN: HARIS CHAVARRIA WedDec 10, 2014 11:16 AM Received from: External Pharmacy ??? ipratropium (AKA ATROVENT) 0.06 % nasal solution 2 Sprays by Nasal route. 03/19/2015: Received from: [facility] ??? Lysine 500 MG Take 1 Cap by mouth two times a day. 03/19/2015: Received from: [facility] Received Sig: ??? Magnesium 200 MG Take 4 Tabs by mouth. 03/19/2015: Received from: [facility] ??? Magnesium 200 MG Take 800 mg by mouth. ??? Multiple Vitamin (MULTI VITAMIN DAILY OR) Take 1 Tab by mouth. 03/19/2015: Received from: [facility] ??? Multiple Vitamins-Minerals (MULTIVITAMIN ADULT OR) Take 1 tablet by mouth daily (every 24 hours). ??? omega-3 fatty acids (AKA MAXEPA, FISH OIL) 1000 MG capsule Take 3 Caps by mouth two times a day.03/19/2015: Received from: [facility] Received Sig: ??? [place]-3 Fatty Acids (SUPER OMEGA 3 EPA/DHA OR) Take by mouth. ??? perindopril (ACEON) 4 MG tablet Take 4 mg by mouth daily. ??? Psyllium (METAMUCIL OR) Take by mouth. ??? valACYclovir (AKA VALTREX) 1 G tablet Take 1,000 mg by mouth three times a day as needed. 03/19/2015: Received from: [facility] Received Sig: ??? valACYclovir (VALTREX) 1 G tablet Indications: PN: HARIS CHAVARRIA [facility] Dec 10, 2014 11:16 AM Received from: External Pharmacy ??? valACYclovir (VALTREX) 500 MG tablet Indications: PN: HARIS CHAVARRIA [facility] Dec 10, 2014 11:16 AMReceived from: External Pharmacy No current facility-administered medications for this visit. Allergies: Latex; Codeine; Morphine; Morphine and related; Nickel; Other; and Propofol Patient Active Problem List Diagnosis ??? Lumbago (HRC) ??? Hearing loss ??? Meniere's disease ??? Symptomatic menopausal or female climacteric states ??? Plantar fascial fibromatosis ??? Disease of nasal cavity and sinuses ??? Capillary disease ??? DJD (degenerative joint disease) of knee Habits: Social History Substance Use Topics ??? Smoking status: Never Smoker ??? Smokeless tobacco: Never Used ??? Alcohol use No No past surgical history on file. Observed: Vital Signs: BP 128/73 Pulse 76 Ht 5' 6.5 (1.689 m) Wt 177 lb (80.3 kg) BMI 28.14 kg/m2 Estimated body mass index is 28.14 kg/(m^2) as calculated from the following: Height as of this encounter: 5' 6.5 (1.689 m). Weight as of this encounter: 177 lb (80.3 kg). General: ambulatory, well nourished, alert. HEENT: normal eyes, ears, throat, oropharynx Neck: No bruits. Cardiovascular: regular rate and rhythm, normal S1 and S2 without murmur or click Chest/Lungs: clear to auscultation, no wheezes or rales Abdomen: Soft, non-tender, no masses, no hepatomegaly or splenomegaly. Extremities: No edema. Pulses intact. Neurologic: Alert and oriented to person, place and time. Skin: No rash Data: Results for orders placed or performed in visit on 04/19/17 HEMOGRAM/PLTS Result Value Ref Range WBC 5.4 4.0 - 11.0 k/ul RBC 4.92 4.0 - 5.2 M/ul Hemoglobin 15.0 12.0 - 16.0 g/dl HCT 44.9 36.0 - 46.0 % MCV 91.3 80 - 100 fl MCH 30.5 26 - 34 pg MCHC 33.4 32 - 36 g/dl RDW 13.3 11.5 - 14.5 % Platelets 182 150 - 450 k/ul Sodium Result Value Ref Range Sodium 141 136 - 145 mmol/L Potassium Result Value Ref Range Potassium 4.1 3.5 - 5.1 mmol/L Creatinine / GFR Result Value Ref Range Creatinine 0.73 0.55 - 1.02 mg/dl GFR, Estimated >60 >60 ml/min/1.73m2 GFR, Est., If Black >60 >60 ml/min/1.73m2 UA Micro If Result Value Ref Range Urine Color Yellow Urine Clarity Clear Sp Gr 1.020 1.005 - 1.030 Leuk Negative NEG Nitr Negative NEG pH 5.5 4.5 - 8.0 Prot Negative NEG mg/dl Gluc Negative NEG Ket Negative NEG Urob 0.2 0.2 - 1.0 EU/dl Bili Negative NEG Blood Neg/Tr NEGTR Comment Micro Not Indicated Urine Culture Result Value Ref Range Specimen Description Urine Midstream Special Requests Unspecified Culture 10 to 50,000 col/ml Multiple Bacterial Morphologies Report Status Final 04/20/2017 ECG 12-LEAD ROUTINE Result Value Ref Range Ventricular Rate 69 BPM Atrial Rate 69 BPM P-R Interval 160 ms QRS Duration 100 ms QT 404 ms QTc 432 ms P Ponder 46 degrees R Ponder 33 degrees T Ponder 56 degrees ECG: done today, normal sinus rhythm, no other signficant findings, no comparison made Assessment and Plan: Pre-op cardiac & risk evaluation: Patient is medically optimized for planned procedure. Cardiac risk for the planned procedure is INTERMEDIATE Cardiac risk factor assessment: heart disease history (NE, angina, CABG, coronary stent)? no History of heart failure/chf? no Renal insufficiency (creat >2.0, GFR<45)? no Diabetes requiring insulin? no History of stroke/ TIA? no Number of cardiac risk factors: 0 Preoperative cardiac evaluation based on these risk factors and functional capacity: Functional capacity is greater or equal to 4 METS without symptoms - no additional testing required. Medication changes are listed in patient instructions below. PATIENT IS ALLERGIC TO PROPOFOL On the day of surgery please do not wear any hair product, including hair spray, gels, etc, and please bring all your medications with you on your day of surgery. Please, follow instructions for not taking anything by mouth the night before your procedure-no eating after midnight the night prior to your procedure. However, some medications should not be held forsurgery because they are beneficial, and some medications need special attention. Medications I recommend you take with a small sip of water up until surgery include: ?? Ipratropium nasal solution ?? Fluticasone-nasal solution ?? Azelastine-nasal solution Medications that require special changes include: ?? ACEI/ARB medications: omit one dose before surgery. ?? aspirin: stop 7 days before surgery ?? NSAIDS (arthritis medications): stop 3 days before surgery We will notify you when lab results are available. We will notify you when your pre-op clinic note is available, if you would like to come and fruit or nut picker a copy. Special risks: NONE Reference links: Beta-blockers, ICSI perioperative guideline Drugs to stop/continue, ICSI perioperative guideline General index, ICSI peroperative guideline Obstructive sleep apnea risk assessment Delirium risk assessment Preoperative cardiac evaluation algorithm from AHA Electronically Signed By: Nicolle Orladno PA-C 04/21/2017, 4:12 PM CC: documented in this encounter Plan of Treatment Not on filedocumented as of this encounter Procedures Procedure Name Priority Date/Time Associated Comments Diagnosis UA MICRO IF Routine 04/19/2017 9:28 AM Preop general Results for this CDT physical exam procedure are in the results section. ECG 12-LEAD ROUTINE Routine 04/19/2017 8:59 AM Preop general R esults for this CDT physical exam procedure are in the results section. CREATININE / GFR Routine 04/19/2017 8:39 AM Preop general Resu lts for this CDT physical exam procedure are in the results section. URINE CULTURE Routine 04/19/2017 8:39 AM Preop general Results for this CDT physical exam procedure are in the results section. COMPLETE BLOOD Routine 04/19/2017 8:39 AM Preop general Result s for this COUNT-NO DIFF CDT physical exam procedure are in the results section. SODIUM Routine 04/19/2017 8:39 AM Preop general Results for this CDT physical exam procedure are in the results section. POTASSIUM Routine 04/19/2017 8:39 AM Preop general Results for this CDT physical exam procedure are in the results section. documented in this encounter Results UA Micro If (04/19/2017 9:28 AM CDT) [facility] Method Time Signature Urine Color Yellow [facility] Urine Clarity Clear [facility] Sp Gr 1.020 1.005 - [facility] 1.030 [facility] Leuk Negative NEG [facility] Nitr Negative NEG [facility] pH 5.5 4.5 - 8.0 [facility] Prot Negative NEG mg/dl [facility] Gluc Negative NEG [facility] Ket Negative NEG [facility] Urob 0.2 0.2 - 1.0 [facility] EU/dl [facility] Bili Negative NEG [facility] Blood Neg/Tr NEGTR [facility] Comment Micro Not [facility] Indicated [facility] Specimen Anatomical Collection Method Collection Time Receive d Time (Source) Location / / Volume Laterality 04/19/2017 9:28 AM 7 9:29 CDT AM CDT Narrative [facility] - 04/19/2017 9:38 AM C DT Performed at [facility], [address] [place] [address] Nicolle Orlando PA-C LAB_1 Performing Organization Address City/State/ZIP Code Phon e Number [facility] [phone] ECG 12-LEAD ROUTINE (04/19/2017 8:59 AM CDT) P athologist Signature Ventricular Rate 69 BPM [facility] Atrial Rate 69 BPM [facility] P-R Interval 160 ms [facility] QRS Duration 100 ms [facility] QT 404 ms [facility] QTc 432 ms [facility] P Ponder 46 degrees [facility] R Ponder 33 degrees [facility] T Ponder 56 degrees [facility] Specimen (Source) Anatomical Collection Method Collection Time Re ceived Time Location / / Volume Laterality 04/19/2017 8:59 AM CDT Narrative [facility] - 05/05/2017 2:34 PM CDT Sinus rhythm Normal ECG No previous ECGs available no acute findining Normal sinus rhythm Confirmed by MD MARINELLI ROBERT C ([id number]), editor map TY TAN ([id number]) on 05/05/2017 2:34:52 PM Procedure Note Merrill Marinelli MD - 05/05/2017Form atting of this note might be different from the original. Sinus rhythm Normal ECG No previous ECGs available no acute findining Normal sinus rhythm Confirmed by MD MARINELLI ROBERT C ([id number]), editor map TY TAN ([id number]) on 05/05/2017 2:34:52 PM Nicolle Orlando PA-C EKG Performing Organization Address City/[facility]/ZIP Code Phon e Number [facility] Urine Culture (04/19/2017 8:39 AM CDT) Component Value Ref Test Analysis Performed At [facility] Range Method Time Signature Specimen Urine Midstream [facility] Description [facility] Special Unspecified [facility]s [facility] Culture 10 to 50,000 [facility] col/ml Multiple [facility] Bacterial Morphologies Report Status Final [facility] 04/20/2017 LABORATORIES Specimen Anatomical Collection Method Collection Time Receive d Time (Source) Location / / Volume Laterality 04/19/2017 8:39 AM 7 8:41 CDT AM CDT Narrative [facility] - 04/20/2017 4:24 AM C DT Performed at [facility] , [address] [place] [address] Nicolle Orlando PA-C LAB_1 Performing Organization Address City/[facility]/ZIP Code Phon e Number [facility] [phone] Creatinine / GFR (04/19/2017 8:39 AM CDT) Analysis Performed At Patho logist Time Signature Creatinine 0.73 0.55 - [facility] 1.02 mg/dl [facility] GFR, Estimated >60 >60 [facility] ml/min/1.7 [facility] 3m2 GFR, Est., If >60 >60 [facility] Black ml/min/1.7 [facility]IES 3m2 Specimen Anatomical Collection Method Collection Time Receive d Time (Source) Location / / Volume Laterality 04/19/2017 8:39 AM 7 8:40 CDT AM CDT Narrative [facility] - 04/19/2017 1:12 PM C DT Performed at [facility], [address] [place] [address] ??[phone] Nicolle Orlando PA-C LAB_1 Performing Organization Address [facility] Phon e Number [facility] [phone] Potassium (04/19/2017 8:39 AM CDT) athologist Signature Potassium 4.1 3.5 - 5.1 [facility] mmol/L Specimen Anatomical Collection Method Collection Time Receive d Time (Source) Location / / Volume Laterality 04/19/2017 8:39 AM 7 8:40 CDT AM CDT Narrative [facility] - 04/19/2017 1:12 PM C DT Performed at [facility], [address] [place] [address] ??[phone] Nicolle Orlando PA-C LAB_1 Performing Organization Address [facility] Phon e Number [facility] [phone] Sodium (04/19/2017 8:39 AM CDT) athologist Signature Sodium 141 136 - 145 [facility] mmol/L Specimen Anatomical Collection Method Collection Time Receive d Time (Source) Location / / Volume Laterality 04/19/2017 8:39 AM 7 8:40 CDT AM CDT Narrative [facility] - 04/19/2017 1:12 PM C DT Performed at [facility], [address] [place] [address] ??[phone] Nicolle Orlando PA-C LAB_1 Performing Organization Address City/State/ZIP Code Phon e Number [facility] [phone] HEMOGRAM/PLTS (04/19/2017 8:39 AM CDT) P athologist Signature WBC 5.4 4.0 - 11.0 [facility] k/ul RBC 4.92 4.0 - 5.2 [facility] M/ul Hemoglobin 15.0 12.0 - 16.0 [facility] g/dl HCT 44.9 36.0 - 46.0 [facility] % MCV 91.3 80 - 100 fl [facility] MCH 30.5 26 - 34 pg [facility] MCHC 33.4 32 - 36 [facility] g/dl RDW 13.3 11.5 - 14.5 [facility] % Platelets 182 150 - 450 [facility] k/ul Specimen Anatomical Collection Method Collection Time Receive d Time (Source) Location / / Volume Laterality 04/19/2017 8:39 AM 7 8:40 CDT AM CDT Narrative [facility] - 04/19/2017 1:37 PM C DT Performed at [facility], [address] [place] [address] ??[phone] Nicolle Orlando PA-C LAB_1 Performing Organization Address City/[facility]/ZIP Code Phon e Number [facility] [phone] documented in this encounter Visit Diagnoses Diagnosis Preop general physical exam - Primary Other specified pre-operative examinatio n Urge incontinence Urinary urgency Urgency of urination Weak urine stream Slowing of urinary stream documented in this encounter Care Teams Vehicle Body Sander Relationship Specialty Start Date End Date Lisseth Vang MD PCP - General Family Practice 04/07/17 07/03/[address] [facility] [address] [place] [address] documented as of this encounter
--- OUTSIDE RECORDS SUMMARY | 2022-07-30 19:44 | XMS_ITS | Encounter Summary ---
:1945 Author Organization [facility] Address [address] [place] [id number] Care Team Providers Name Role Phone Titus Medina MD Primary Care Provider Reason for Visit Reason Comments Hip Problem Encounter Details Date Type Department Care Team Description 08/11/2011 Office Visit [facility] Adi Jones Hip pain, left Therapy D, PT (Primary Dx) [address] [place], [place] [phone] (Wo rk) Social History Tobacco Use Types Packs/Day Years Used Date Smoking Tobacco: Never Assessed Sex Assigned at Date Recorded Not on file documented as of this encounter Progress Notes Adi Jones D, PT - 08/11/2011 4:38 PM CST Physical Therapy Lower Extremity Evaluation/Plan of [...] any for of squatting or kneeling at voodoo. Is frustrated that she can not rise [...] that she is doing much better. Her knee pain is almost resolved and the lateral hip pain is also nearly gone. HOwever her L hip can still bother her with pivoting and her R foot can also bother her with striding out. OBJECTIVE: Pain in the R metatarsals with toe extension. L hip lack ing IR with hip pain. Tx included high velocity low amplitude thrust manipulation to the L hip x 4 in long axis. joint mobilization to the L hip lateral hip capsule and posterior hip capsule. Manual stretch to the L hip into IR x 10. Manual stretch to the R foot plantarfascia. joint mobilization to the metatarsals inferior glides 1st-3rd. Hip flexor stretch on the stairs home exercise program. ASSESSMENT: Blane tx well. Post tx no pain with walking on the R foot and mild stretch into the L hip with increased stride length that can be address with stair stretch exercise. PLAN DC PT next visit if pivoting and walking are fine. Therapeutic Exercises [id number] 15 min Manual therapy [id number] 15 min Total tx time 30min Marlon Jones PT [id number] documented in this encounter Plan of Treatment Not on filedocumented as of this encounter Visit Diagnoses Diagnosis Hip pain, left - Primary Pain in joint, pelvic region and thigh documented in this encounter Care Teams Appeals Referee Relationship Specialty Start Date End Date Titus Medina MD PCP - General 09/16/1996 03/17/15 documented as of this encounter
--- OUTSIDE RECORDS SUMMARY | 2022-07-30 19:44 | XMS_ITS | Encounter Summary ---
:1945 Author Organization [facility] Address [address] [place] [id number] Care Team Providers Name Role Phone Titus Medina MD Primary Care Provider Reason for Visit Reason Comments Cough CONGESTION, NASAL Pharyngitis Encounter Details Date Type Department Care Team Description 10/27/2012 Hospital Encounter [facility] [address] Britney Barnett MD Acute sinusitis, unspecified; Urgent Care [address] Acute pharyngitis [address] [place]. [facility], [address] [place] [address] [phone] Social History Tobacco Use Types Packs/Day Years Used Date Smoking Tobacco: Never Assessed Sex Assigned at Date Recorded Not on file documented as of this encounter Last Filed Vital Signs Vital Sign Reading Time Taken Comments Blood Pressure 152/70 10/27/2012 7:43 PM RATING OFFICER Pulse 64 10/27/2012 7:38 PM RATING OFFICER Temperature 36.9 ??C (98.4 ??F) 10/27/2012 7:38 PM RATING OFFICER Respiratory Rate 18 10/27/2012 7:38 PM RATING OFFICER Oxygen Saturation 98% 10/27/2012 7:38 PM RATING OFFICER Inhaled Oxygen Concentration - - Weight - - Height - - Body Mass Index - - documented in this encounter Medications at Time of Discharge Medication Sig Dispensed Refills Start Date End Date B COMPLEX-C OR Take 1 capsule by 0 10/27/201205/2016 mouth daily (every 24 hours). B COMPLEX-C OR Take 1 capsule by 0 10/27/201207/2019 mouth daily (every 24 hours). Calcium Take 1,200 mg by 0 08/02/2012 04/10/20 16 Carb-Cholecalciferol mouth. 600-1000 MG-UNIT TABS Calcium Take 1,200 mg by 0 08/02/2012 04/12/20 19 Carb-Cholecalciferol mouth. 600-1000 MG-UNIT TABS Cholecalciferol 2000 UNITS Take by mouth. 0 08/0204/12/2019 Cholecalciferol CAPS Take by mouth. 0 08/02/2012 04/10/2016 DILAUDID OR None Entered 0 10/31/2007 04/12/2019 GLUCOSAMINE CHONDROITIN Take by mouth. 0 08/02/20 12 04/10/2016 COMPLX CAPS Mbwvwlprqmk-Iehtelwnu-Qbw Take by mouth. 0 201104/12/2019 C-Mn (GLUCOSAMINE CHONDROITIN COMPLX) Magnesium 200 MG Take 800 mg by 0 08/02/201204/03 mouth. Magnesium TABS Take 800 mg by 0 08/02/20122015 mouth. Spencer-3 Fatty Acids (SUPER Take by mouth. 0 08/0204/12/2019 OMEGA 3 EPA/DHA OR) SUPER OMEGA 3 EPA/DHA OR Take by mouth. 0 012 04/10/2016 documented as of this encounter ED Notes Bony Barnett MD - 10/27/2012 7:59 PM CST Chief Complaint Patient presents with ??? Cough ??? Nasal Congestion ??? Pharyngitis (SORE THROAT) SUBJECTIVE: Ramona Sheikh is a 67 y.o.female comes to Urgent Care for evaluation of more than 3 weeks of upper respiratory tract symptoms. These include runny nose, sore throat , facial pain , thick discolored postnasal drainage and cough. severe sore throat for the past 2 days with lymph node swelling. no fever, shortness of breath. similar symptoms last fall, responded well to amoxicillin. requests Diflucan prescription with antibiotic 2 frequent yeast infections after. Past Medical History: History reviewed. No pertinent past medical history. Social History: History Substance Use Topics ??? Smoking status: Never Smoker ??? Smokeless tobacco: Not on file ??? Alcohol Use: Not on file Alcoholic Drinks/day: Amount:1-2 drinks; Freq:=< Monthly; Adverse Drug Reactions: Latex, Codeine, Morphine, Other and Propofol Medications: No current facility-administered medications on file prior to encounter. Current outpatient prescriptions ordered prior to encounter Medication Sig Dispense Refill ??? b complex-vitamin c-folic acid (NEPHROCAPS) 1 mg capsule Take 1 capsule by mouth daily (every 24hours). ??? Calcium Carbonate-Vitamin D3 600mg (1,000mg) -1,000 unit Tab Take 1,200 mg by mouth. ??? Cholecalciferol, Vitamin D3, 2,000 unit Cap Take by mouth. ??? DISCONTD: fluconazole (DIFLUCAN) 200 mg tablet Take 1 tablet by mouth. If develops yeast infection. May repeat. 2 tablet 0 ??? GLUC/FAHEEM-MSM#1/VIT C/RADHIKA/BOR ([id number] COMPLEX ORAL) Take by mouth. ??? Magnesium 200 mg Tab Take 800 mg by mouth. ??? Ujpdx-8-ZXA-EPA-Fish Oil 805-1,000 mg Cap Take by mouth. OBJECTIVE: Vital Signs: BP 152/70 Pulse 64 Temp(Src) 36.9 ??C (98.4 ??F) (Oral) Resp 18 SpO2 98% General: in no acute distress. Eyes: Normal appearing conjunctiva, sclera and corneas without blepharitis. Ears: Normal pinnae, canals and TMs. Nose: moderately congested . tender sinuses. Throat: Slightly red moist oral mucosa. Neck: Supple, without masses or tenderness. slightly tender,small shotty cervical nodes. Respiratory: Normal respiratory effort with clear lung dumont and good air entry. Heart: Regular S1 and S2. Labs: Labs Reviewed LAB RAPID STREP GROUP A WAIVED Narrative: Performed at [facility], [address] [place] [address] N/O MICRO CULTURE STREP FOLLOW UP FROM RAPID ASSESSMENT: 1. Acute sinusitis, unspecified (461.9) 2. Acute pharyngitis (462) PLAN: Medications b complex-vitamin c-folic acid (NEPHROCAPS) 1 mg capsule (not administered) amoxicillin (AMOXIL) 500 mg capsule (not administered) fluconazole (DIFLUCAN) 150 mg tablet (not administered) . discussed common medication side effects. We discussed contagiousness. Use OTC analgesics for fever or pain. Discussed home treatment. Encourage nutritious liquids. RTC PRN if not gradually improving. The patient was discharged ambulatory and in stable condition. Stephy Goldsmith RN - 10/27/2012 7:53 PM CST rst neg documented in this encounter Miscellaneous Notes Medication History - Jose Obando MD - 10/27/2012 7:59 PM CST INPATIENT MEDS Encounter Date: 10/27/12 fluconazole (DIFLUCAN) 150 mg tablet Start Date:10/27/12, End Date:10/27/12, Frequency:ONCE *No Administrations Recorded amoxicillin (AMOXIL) 500 mg capsule Start Date:10/27/12, End Date:08/16/14, Frequency:2 TIMES DAILY *No Administrations Recorded amoxicillin (AMOXIL) 500 mg capsule Start Date:10/27/12, End Date:10/27/12, Frequency:2 TIMES DAILY *No Administrations Recorded fluconazole (DIFLUCAN) 150 mg tablet Start Date:10/27/12, End Date:10/27/12, Frequency:ONCE *No Administrations Recorded b complex-vitamin c-folic acid (NEPHROCAPS) 1 mg capsule Start Date:-, End Date:-, Frequency:DAILY *No Administrations Recorded NG OFFICER documented in this encounter Plan of Treatment Not on filedocumented as of this encounter Procedures Procedure Name Priority Date/Time Associated Diagnosis Comme nts GROUP A STREP STAT 10/27/2012 7:58 PM Acute pharyngitis Res ults for this ANTIGEN SCREEN RATING OFFICER procedure are in the results section. BETA STREP FOLLOWUP Routine 10/27/2012 7:55 PM Re sults for this RATING OFFICER procedure are i n the results section. documented in this encounter Results RAPID STREP GROUP A WAIVED (10/27/2012 7:58 PM RATING OFFICER) Analysis Performed At Patho logist Time Signature Strep A Negative Negative HP CONVERSION Antigen Strep A Source Throat: HP CONVERSION Specimen Anatomical Collection Method Collection Time Receive d Time (Source) Location / / Volume Laterality 10/27/2012 7:58 PM 3 7:59 RATING OFFICER PM RATING OFFICER Narrative HP CONVERSION - 10/27/2012 8:01 PM RATING OFFICER Performed at [facility], [facility] [place] [address] Bony Barnett MD LAB_1 Performing Organization Address City/[facility] Phon e Number HP CONVERSION Beta Strep Followup (10/27/2012 7:55 PM RATING OFFICER) [facility] Time Signature Strep Screen No beta HP CONVERSION hemolytic Strep Group A isolated. Specimen (Source) Anatomical Collection Method Collection Time Re ceived Time Location / / Volume Laterality Throat: 10/27/2012 7:55 PM RATING OFFICER Bony Barnett MD LAB_1 Performing Organization Address [facility] Phon e Number HP CONVERSION documented in this encounter Visit Diagnoses Diagnosis Acute sinusitis, unspecified Acute pharyngitis Triage Assessment Note - Stephy Quesada, RN - 10/27/2012 7:38 PM RATING OFFICER Cough and very sore throat, painful to move tongue, with green discharge from sinuses. Symptoms started with mild cold symptoms around 10/04/12. Sore throat started yesterday. Also states has lost rx for diflucan and would like another. NG OFFICER documented in this encounter Care Teams Link Trainer Maintenance Worker Relationship Specialty Start Date End Date Titus Medina MD PCP - General 09/16/1996 03/17/15 documented as of this encounter
--- OUTSIDE RECORDS SUMMARY | 2022-07-30 19:44 | XMS_ITS | Encounter Summary ---
:1945 Author Organization [facility] Address [address] [place] [address] Care Team Providers Name Role Phone Titus Medina MD Primary Care Provider Encounter Details Date Type Department Care Team Description 03/30/2010 PN Conversion Only BOAT CARPENTER MECHANIC [address] Arora [address] [place] [address] [address] [place] [address] (Wo rk) Social History Tobacco Use Types Packs/Day Years Used Date Smoking Tobacco: Never Assessed Sex Assigned at Date Recorded Not on file documented as of this encounter Plan of Treatment Not on filedocumented as of this encounter Procedures Procedure Name Priority Date/Time Associated Diagnosis Comme nts URINE CULTURE Routine 03/30/2010 8:56 AM Results for this CDT procedure are i n the results section . documented in this encounter Results Urine Culture (03/30/2010 8:56 AM CDT) Analysis Performed At Patho logist Time Signature Urine Culture SEE TEXT HP CONVERSION Comment: CUR Culture Urine ? ORDERED BY: DANISH ARORA SOURCE: Urine Clean Catch ?COLLECTED: ??03/30/10 08:56 ? PLATED: ? 03/31/10 15:22 Culture Urine ?FINAL ? 04/01/10 21:41 ?? 50-100,000 cfu/ml Enterococcus spp ? Although Enterococcus has o nly relative sensitivity to a few ? antibiotics, high concentra tions achieved in urine may allow ? single drug therapy. ?Ent.sp. ?ANTIBIOTICS ?JAKUB ?INTRP Ampicillin ? <=2 ?S Ciprofloxacin ? 1 ? S Levofloxacin ?1 ? S Nitrofurantoin ?<=16 ?S Tetracycline ?>=16 ?R Vancomycin ?2 ? S S=SUSCEPTIBLE I=INTERMEDIATE R=RESISTAN T NS=NON-SUSCEPTIBLE A JAKUB is generally regarded as the activ ity of an antimicrobial agent against an organism. Clinically, the minimum inhibitory rosa ntrations ??are used to determine ??the amount of antibiotic that the patient wi ll receive. Please consult an Infectious Disease Spe cialist with questions. Specimen (Source) Anatomical Collection Method Collection Time Re ceived Time Location / / Volume Laterality 03/30/2010 8:56 AM CDT Danish Arora MD LAB_1 Performing Organization Address City/State/ZIP Code Phon e Number HP CONVERSION documented in this encounter Visit Diagnoses Not on filedocumented in this encounter Care Teams Senior Manufacturing Engineer Relationship Specialty Start Date End Date Titus Medina MD PCP - General 09/16/1996 03/17/15 (work) documented as of this encounter
--- OUTSIDE RECORDS SUMMARY | 2022-07-30 19:44 | XMS_ITS | Encounter Summary ---
:1945 Author Organization [facility] Address [address] [place] [address] Care Team Providers Name Role Phone Titus Medina MD Primary Care Provider Encounter Details Date Type Department Care Team Description 03/30/2010 Office Visit [facility] [address] Abelino Woods, Ken OLIVEROS [address] [place] [address] [place], [place] [phone] (Wo rk) Social History Tobacco Use Types Packs/Day Years Used Date Smoking Tobacco: Never Assessed Sex Assigned at Date Recorded Not on file documented as of this encounter Last Filed Vital Signs Vital Sign Reading Time Taken Comments Blood Pressure 117/76 03/30/2010 8:48 AM CDT Pulse 64 03/30/2010 8:48 AM CDT Temperature 36.6 ??C (97.9 ??F) 03/30/2010 8:48 AM CDT C: 36 .6 C Respiratory Rate 20 03/30/2010 8:48 AM CDT Oxygen Saturation - - Inhaled Oxygen Concentration - - Weight - - Height - - Body Mass Index - - documented in this encounter Progress Notes Danish Woods MD - 03/30/2010 12:01 AM CDT Progress Notes signed by Danish Woods MD at 03/30/10 1244 Author: Danish Woods MD Service: (none) Author Type: Physician Filed: 01/24/11 2519 Note Time: 03/30/10 0001 Status: Signed Driller'S Assistant: Danish Woods MD (Physician) SUBJECTIVE: Patient is a 64-year-old female, who awoke this morning with dysuria and frequency. Last UTI: Usually has about one year and infection a year. Adverse Drug Reactions: Codeine, morphine, latex. Medications: Lisinopril. OBJECTIVE: Vital Signs : BP: 117/76 P: 64 R: 20 T: 97.8 Physical Exam: No CVA discomfort. Urinalysis: Leucocyte esterase: Moderate greater than 100 WBC's/hpf 50 to 100 RBC's/hpf urine culture is pending ASSESSMENT: Cystitis PLAN: Cipro 500 p.o. b.i.d. x 7 days *SH~DNS~UTI documented in this encounter Plan of Treatment Not on filedocumented as of this encounter Visit Diagnoses Not on filedocumented in this encounter Care Teams Curtain Roller Assembler Relationship Specialty Start Date End Date Titus Medina MD PCP - General 09/16/1996 03/17/15 documented as of this encounter
--- OUTSIDE RECORDS SUMMARY | 2022-07-30 19:44 | XMS_ITS | Encounter Summary ---
:1945 Author Organization [facility] Address [address] [place] [address] Care Team Providers Name Role Phone Titus Medina MD Primary Care Provider Reason for Visit Reason Comments HYPERTENSION Back Pain Encounter Details Date Type Department Care Team Description 12/10/2014 Hospital Encounter [facility] [address] Elizabeth Trujillo , Abnormal result on screening urine test; Urgent Care MD Gonzalez [address] [place] [address] [place] [address]. [facility] [address] [phone] Social History Tobacco Use Types Packs/Day Years Used Date Smoking Tobacco: Never Assessed Sex Assigned at Date Recorded Not on file documented as of this encounter Last Filed Vital Signs Vital Sign Reading Time Taken Comments Blood Pressure 140/87 12/10/2014 11:20 AM CDT Pulse 71 12/10/2014 11:20 AM CDT Temperature 36.7 ??C (98.1 ??F) 12/10/2014 11:20 AM CDT Respiratory Rate 16 12/10/2014 11:20 AM CDT Oxygen Saturation - - Inhaled Oxygen Concentration - - Weight - - Height - - Body Mass Index - - documented in this encounter Medications at Time of Discharge Medication Sig Dispensed Refills Start Date End Date azelastine (AKA ASTELIN) Place 1 spray into 0 04/12/2019 0.1 % nasal solution each nostril 2 times daily. Use in each nostril as directed B COMPLEX-C OR Take 1 capsule by [...] DILAUDID OR None Entered 0 10/31/2007 04/12/2019 diphenhydrAMINE (aka Take 25 mg by mouth 0 201404/10/2016 BENADRYL) capsule 2 times daily. diphenhydrAMINE (BENADRYL) Take 25 mg by mouth 0 12/10/2014 04/12/2019 25 MG capsule 2 times daily. DRUG NOT IN Indications: PN: 0 12/10/2014 016 COMPUTERIndications: HARIS AMADOR SARA [facility] Dec 10, 20142014 11:20 AM Tumeric 11:20 AM Tumeric DRUG NOT IN Indications: PN: 0 12/10/2014 019 COMPUTERIndications: HARIS AMADOR SARA [facility] Dec 10, 20142014 11:20 AM Tumeric 11:20 AM Tumeric Estradiol (ESTRING VA) Place vaginally. 0 014 04/12/2019 Garlic 500 MG Take by mouth. 0 12/10/2014 019 Garlic TABS Take by mouth. 0 12/10/2014 6 ADIN OR Take by mouth. 0 12/10/2014 04/10/2016 Adin, Zingiber Take by mouth. 0 12/10/201404/03 officinalis, (ADIN OR) GLUCOSAMINE CHONDROITIN Take by mouth. 0 08/02/20 12 04/10/2016 COMPLX CAPS Mqhujlfpivl-Yrjbpopzn-Gjv Take by mouth. 0 201104/12/2019 C-Mn (GLUCOSAMINE CHONDROITIN COMPLX) hydrocortisone-pramoxine Indications: PN: 0 11/2804/10/2016 (aka PROCTOFOAM-HC) 1-1 % HARIS AMADOR rectal foam WedDec 10, 2014 FOAMIndications: 11:16 AM Received HARIS AMADOR Mon Mar from: External 2014 11:16 AM Received Pharmacy from: External Pharmacy hydrocortisone-pramoxine Indications: PN: 0 11/2804/12/2019 (PROCTOFOAM-HC) 1-1 % HARIS AMADOR rectal foamIndications: WedDec 10, 2014 HARIS AMADOR Mon Mar 11:16 AM Received 2014 11:16 AM Received from: External from: External Pharmacy Pharmacy Magnesium 200 MG Take 800 mg by 0 08/02/201204/03 mouth. Magnesium TABS Take 800 mg by 0 08/02/20122015 mouth. METAMUCIL OR Take by mouth. 0 12/10/2014 04/10/20 16 Multiple Vitamins-Minerals Take 1 tablet by 0 06/201504/12/2019 (MULTIVITAMIN ADULT OR) mouth daily (every 24 hours). MULTIVITAMIN ADULT OR Take 1 tablet by 0 12/11/19 15 04/10/2016 mouth daily (every 24 hours). [place]-3 Fatty Acids (SUPER Take by mouth. 0 08/0204/12/2019 OMEGA 3 EPA/DHA OR) Psyllium (METAMUCIL OR) Take by mouth. 0 12/11/19 15 04/12/2019 SUPER OMEGA 3 EPA/DHA OR Take by mouth. 0 012 04/10/2016 valACYclovir (aka VALTREX) Indications: PN: 0 04/10/2016 tabletIndications: HARIS AMADOR SARA L Mon Mar WedDec 10, 20142014 11:16 AM Received 11:16 AM Received from: External Pharmacy from: External Pharmacy valACYclovir (aka VALTREX) Indications: PN: 0 04/10/2016 tabletIndications: HARIS AMADOR SARA L Mon [facility] WedDec 10, 20142014 11:16 AM Received 11:16 AM Received from: External Pharmacy from: External Pharmacy valACYclovir (VALTREX) 1 G Indications: PN: 0 04/12/2019 tabletIndications: HARIS AMADOR SARA L Mon Mar [facility] Dec 10, 20142014 11:16 AM Received 11:16 AM Received from: External Pharmacy from: External Pharmacy valACYclovir (VALTREX) 500 Indications: PN: 0 04/12/2019 MG tabletIndications: HARIS AMADOR SARA L Mon [facility] WedDec 10, 20142014 11:16 AM Received 11:16 AM Received from: External Pharmacy from: External Pharmacy documented as of this encounter ED Notes Elizabeth Trujillo MD - 12/10/2014 1:53 PM CDT ED Provider Notes signed by Elizabeth Trujillo MD at 12/12/14747 Author: Elizabeth Trujillo MD Service: (none) Author Type: Physician Filed: 12/12/14747 Note Time: 12/10/141556 Status: Signed Sole Stainer: Elizabeth Trujillo MD (Physician) NAME: IMELDA GARCIA MR#: [id number] CSN: [id number] AUTHENTICATING CLINICIAN: Elizabeth Trujillo MD CONFIRM #: [id number] LOC: 420 URGENT CARE PROGRESS NOTE DATE OF VISIT: 12/10/2014 : 1945 Patient comes in today, having recently had some labs performed by her primary care provider at [facility]. She is concerned because her urinalysis showed albumin and hyaline casts. She says she does not think her primary care doctor knows about these test results yet. She has had one week of back pain, and she is worried that it could represent some kidney disease after having read on the Internet about the significance of hyaline casts and albumin. The pain in her back does not radiate outof her back. It is over the SI joint bilaterally. There is no numbness, tingling or weakness in her extremities. She is concerned that her systolic blood pressures at home have been between 170-180 on her blood pressure machine. She denies any chest pain. No shortness of breath. No headache. No problems with speech, vision, or hearing. She had seen her primary care provider because of some urinary incontinence, and that was the context of ordering the urinalysis. PHYSICAL EXAM: She is in no apparent distress. Temperature is 98.1. Pulse 71. Respirations 16. Blood pressure 140/87. Spine and paraspinous muscles are nontender to palpation. She can forward flex to almost touch her toes. She can extend her back 20 degrees. Straight-leg raise is negative to 45 degrees bilaterally. Strength in her extremities is 5/5. LUNGS: Clear to auscultation. CARDIAC: Regular rate and rhythm without murmurs, gallops or rubs. Urinalysis today does not show proteinuria or hyaline casts. She has minimal bacteria. ASSESSMENT/PLAN: 1. Abnormal urinalysis. Explained to the patient it could have been lab error or a function of her hydration status. Repeat urinalysis today is reassuring. 2. Back pain, likely musculoskeletal. Given some exercises to perform. 3. Blood pressure appears to be normal here. I have advised her to follow up with her primary care provider, bringing her blood pressure cuff with her to ensure its accuracy. Followup in urgent care [facility] TAL:JAIME C: CONFIRM #: [id number] documented in this encounter Miscellaneous Notes Medication History - Jose Obando MD - 12/10/2014 1:14 PM CDT INPATIENT MEDS Encounter Date: 12/10/14 diphenhydrAMINE (BENADRYL) 25 mg capsule Start Date:-, End Date:-, Frequency:2 TIMES DAILY *No Administrations Recorded multivitamin (THERAGRAN) tablet Start Date:-, End Date:-, Frequency:DAILY *No Administrations Recorded PSYLLIUM HUSK (METAMUCIL ORAL) Start Date:-, End Date:-, Frequency:- *No Administrations Recorded ADIN ROOT (ADIN EXTRACT ORAL) Start Date:-, End Date:-, Frequency:- *No Administrations Recorded Garlic 500 mg Tab Start Date:-, End Date:-, Frequency:- *No Administrations Recorded drug not in computer Start Date:-, End Date:-, Frequency:- *No Administrations Recorded valACYclovir (VALTREX) 500 mg tablet Start Date:10/23/13, End Date:-, Frequency:- *No Administrations Recorded ESTRING 2 mg vaginal ring Start Date:10/18/13, End Date:12/10/14, Frequency:- *No Administrations Recorded PROCTOFOAM HC rectal foam Start Date:11/28/13, End Date:-, Frequency:- *No Administrations Recorded valACYclovir (VALTREX) 1 g tablet Start Date:11/27/13, End Date:-, Frequency:- *No Administrations Recorded ED AVS Snapshot - Jose Obando MD - 12/10/2014 1:14 PM CDT Images from the original note were not included. [facility] [address] [place] [address] URGENT CARE [address] [place] [address] Dept: [phone] [email or web address] Imelda Ramona Kori 12/10/2014 11:39 AM Hospital Encounter Description: Female : 1945 Department: [place] [address] Urgent Care Dept Thank you for choosing [place] [address] [facility] for your health care visit with Elizabeth Trujillo MD. We are happy to care for you and provide this summary of your visit. Your primary daycare teacher is currently listed as Mehreen Johnston MD. HERE IS WHAT YOU NEED TO KNOW To learn how you can take steps to stay as healthy as you can be visit [email or web address] Discharge Instructions Back Stretches: Exercises Your Care Instructions Here are some examples of exercises for stretching your back. Start each exercise slowly. Ease off the exercise if you start to have pain. Your doctor or physical therapist will tell you when you can start these exercises and which ones will work best for you. How to do the exercises Overhead stretch 1. Stand comfortably with your feet shoulder-width apart. 2. Looking straight ahead, raise both arms over your head and reach toward the ceiling. Do not allowyour head to tilt back. 3. Hold for 15 to 30 seconds, then lower your arms to your sides. 4. Repeat 2 to 4 times. Side stretch 1. Stand comfortably with your feet shoulder-width apart. 2. Raise one arm over your head, and then lean to the other side. 3. Slide your hand down your leg as you let the weight of your arm gently stretch your side muscles.Hold for 15 to 30 seconds. 4. Repeat 2 to 4 times on each side. Press-up 1. Lie on your stomach, supporting your body with your forearms. 2. Press your elbows down into the floor to raise your upper back. As you do this, relax your stomach muscles and allow your back to arch without using your back muscles. As your press up, do not let your hips or pelvis come off the floor. 3. Hold for 15 to 30 seconds, then relax. 4. Repeat 2 to 4 times. Relax and rest 1. Lie on your back with a rolled towel under your neck and a pillow under your knees. Extend your arms comfortably to your sides. 2. Relax and breathe normally. 3. Remain in this position for about 10 minutes. 4. If you can, do this 2 or 3 times each day. Follow-up care is a burgos part of your treatment and safety. Be sure to make and go to all appointments, and call your doctor if you are having problems. It's also a good idea to know your test results and keep a list of the medicines you take. Where can you learn more? Go to [facility]/imagoorary and enter Y090 in the search box. Current as of: March 07, 2014 Content Version: 10.3 ?? [id number] [employer]. HERE IS WHAT YOU NEED TO DO Call your clinic if you develop new or worsening symptoms or if you have questions about your visit or medications. HERE IS INFORMATION FROM TODAY'S VISIT Reason for Visit Hypertension(ELEVATED BLOOD PRESSURE) Back Pain Reason for Visit History Health issues considered by your clinician today Abnormal result on screening urine test Lumbago (ACG) If you had any tests, you will be notified of your abnormal results by your clinic. We Performed the Following Urinalysis Routine(Micro If Pos): Urine Microscopic: Results Urinalysis Routine(Micro If Pos): Component Value Standard Range & Units Urine Type Urine:clean cat Turbidity Clear Clear U Bili Negative Negative Blood Urine Negative Negative Glucose, Qualitative U Negative Neg-30 mg/dL Ketones Negative Negative Leukocyte Esterase Urine Negative Negative Nitrite Urine Negative Negative pH Urine 7.0 5.0-8.0 Protein Urine Negative Neg - Trace mg/dL U Specific [place] 1.015 1.005 - 1.030 Urobilinogen Urine Negative Negative Eu/dL Urine Microscopic: Component Value Standard Range & Units Urine WBC 0-2 0 - 4 /HPF Urine RBC 0-2 0 - 2 /HPF Bacteria Urine Few /HPF Epithelial Cells Few /HPF Urine Mucus Few /LPF Medications administered today None MEDICATIONS As of today's visit, these are your current medications Medication DOSAGE azelastine (ASTELIN) 137 mcg nasal spray (Taking) Place 1 spray into each nostril 2 times daily. Use in each nostril as directed b complex-vitamin c-folic acid (NEPHROCAPS) 1 mg capsule (Taking) Take 1 capsule by mouth daily (every 24 hours). Calcium Carbonate-Vitamin D3 600mg (1,000mg) -1,000 unit Tab (Taking) Take 1,200 mg by mouth. Cholecalciferol, Vitamin D3, 2,000 unit Cap (Taking) Take by mouth. diphenhydrAMINE (BENADRYL) 25 mg capsule (Taking) Take 25 mg by mouth 2 times daily. drug not in computer (Taking) ESTRADIOL (ESTRING VAGL) (Taking) Place vaginally. Garlic 500 mg Tab (Taking) Take by mouth. ADIN ROOT (ADIN EXTRACT ORAL) (Taking) Take by mouth. GLUC/FAHEEM-MSM#1/VIT C/RADHIKA/BOR (YQJJDZEOCJN-AWXVH-DAI COMPLEX ORAL) (Taking) Take by mouth. Magnesium 200 mg Tab (Taking) Take 800 mg by mouth. multivitamin (THERAGRAN) tablet (Taking) Take 1 tablet by mouth daily (every 24 hours). Dxmib-4-ARJ-EPA-Fish Oil 805-1,000 mg Cap (Taking) Take by mouth. PROCTOFOAM HC rectal foam (Taking) PSYLLIUM HUSK (METAMUCIL ORAL) (Taking) Take by mouth. valACYclovir (VALTREX) 1 g tablet (Taking) valACYclovir (VALTREX) 500 mg tablet (Taking) Vital signs from your visit Your Vitals Were BP Pulse Temp(Src) Resp 140/87 71 36.7 ??C (98.1 ??F) (Oral) 16 Allergies as of 12/10/2014 Latex 01/04/2011 Allergy Rash Codeine 05/03/2000 Allergy Nausea And Vomiting Morphine 10/08/2008 Allergy Nausea And Vomiting Other 03/30/2010 Unspecified LW Other1: -Kiara Propofol 08/02/2012 Allergy Nausea And Vomiting Immunization History Never Reviewed DT 02/08/1986 HEP B 10/02/2003, 03/28/2003, 02/12/2003 Hep A Adult (19+ yrs) 10/02/2003, 02/12/2003 INFLUENZA TIV 0.5 ML (36+ MOS) 07/25/2007, 07/08/2006, 2005, 09/17/2004, 08/04/2003 Influenza Virus Trivalent/Conversion 08/23/2002, 08/04/2001, 07/28/1999, 07/31/1997 Lyme Disease Vaccine 30mcg/0.5ml IM 05/04/2001, 02/24/1999, 12/19/1998 PPD 04/05/2007, 03/23/2007, 07/20/2005 Rabies Vaccine, Human Diploid 2.5IU/ML 05/01/2003, 04/10/2003, 04/03/2003 Td Adult (>7 years) 09/22/1999 Tdap (Adacel) 04/28/2007 Typhoid IM 04/28/2007, 10/02/2003 YF-Vax 05/01/2003 About You Date Of Sex Race Ethnicity Preferred Language 1945 Female White Non- Mosotho This document contains confidential information about your health and care. It is provided directlyto you for your personal, private use only. documented in this encounter Plan of Treatment Not on filedocumented as of this encounter Procedures Procedure Name Priority Date/Time Associated Comments Diagnosis URINE MICROSCOPIC STAT 12/10/2014 11:57 Abnormal result on Results for this AM CDT screening urine procedure ar e in test the results section. URINALYSIS STAT 12/10/2014 11:57 Abnormal result on Resul ts for this ROUTINE(MICRO IF POS) AM CDT screening urine pro cedure are in test the results section. documented in this encounter Results (ABNORMAL) URINE MICROSCOPIC (12/10/2014 11:57 AM CDT) Analysis Performed At Path logist Time Signature Urine WBC 0-2 0 - 4 /HPF HP CONVERSION Urine RBC 0-2 0 - 2 /HPF HP CONVERSION Bacteria Urine Few (A) /HPF HP CONVERSION Epithelial Few /HPF HP CONVERSION Cells Urine Mucus Few /LPF HP CONVERSION Specimen Anatomical Collection Method Collection Time Receive d Time (Source) Location / / Volume Laterality 12/10/2014 11:57 12/10/2014 AM CDT 12:01 PM CDT Narrative HP CONVERSION - 12/10/2014 12:59 PM CDT Performed at [facility], [address] [place] [address] Elizabeth Trujillo MD LAB_1 Performing Organization Address City/State/ZIP Code Phon e Number HP CONVERSION URINALYSIS ROUTINE(MICRO IF POS) (12/10/2014 11:57 AM CDT) [facility] gist Method Time Signature Urine Type Urine:clean HP CONVERSION cat Turbidity Clear Clear HP CONVERSION U BILI Negative Negative HP CONVERSION Blood Urine Negative Negative HP CONVERSION Glucose, Negative Neg-30 HP CONVERSION Qualitative U mg/dL Ketones Negative Negative HP CONVERSION Leukocyte Negative Negative HP CONVERSION Esterase Urine Nitrite Urine Negative Negative HP CONVERSION pH Urine 7.0 5.0 - 8.0 HP CONVERSION Protein Urine Negative Neg - Trace HP CONVERSION mg/dL U Specific 1.015 1.005 - HP CONVERSION [place] 1.030 Urobilinogen Negative Negative HP CONVERSION Urine Eu/dL Specimen Anatomical Collection Method Collection Time Receive d Time (Source) Location / / Volume Laterality Urine: 12/10/2014 11:57 12/10/2014 AM CDT 12:01 PM CDT Narrative HP CONVERSION - 12/10/2014 12:10 PM CDT Performed at [facility], [address] [place] [address] Elizabeth Trujillo MD LAB_1 Performing Organization Address City/State/ZIP Code Phon e Number HP CONVERSION documented in this encounter Visit Diagnoses Diagnosis Abnormal result on screening urine test Lumbago Triage Assessment Note - Haris Amador RN - 12/10/2014 11:14 AM CDT Pt states to elevated blood pressures since systolic between 170's and 180's. Pt was seen by her PCP at [facility] last Wednesday and is concerned by some of the abnormal results. Pt suspects that her PCP has not seen these result yet. documented in this encounter Care Teams Equipment Operating Engineer Relationship Specialty Start Date End Date Titus Medina MD PCP - General 09/16/1996 03/17/15 documented as of this encounter
--- OUTSIDE RECORDS SUMMARY | 2022-07-30 19:44 | XMS_ITS | Encounter Summary ---
:1945 Author Organization [facility] Address [address] [place] [address] Care Team Providers Name Role Phone Titus Medina MD Primary Care Provider Reason for Visit Reason Comments Knee Problem Encounter Details Date Type Department Care Team Description 02/13/2014 Office Visit [facility] Adi Jones Knee pain (Primary Therapy D, PT Dx) [address] [place], [place] [phone] (Wo rk) Social History Tobacco Use Types Packs/Day Years Used Date Smoking Tobacco: Never Assessed Sex Assigned at Date Recorded Not on file documented as of this encounter Progress Notes Adi Jones D, PT - 02/13/2014 8:03 AM CDT Encounter date: 02/13/2014 Pt : 1945 [facility] Physical Therapy Progress Note Initial Certification Period: 01/09/2014 to 02/08/14 Referring Provider: Pascual Parker Referring Diagnosis: Knee pain Visit Diagnosis/ICD code: Diagnosis (ICD9) ICD-9-CM 1. 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 She states that she is having a hard time finding a place to do the lunges. She also states that she gets pinching in her knee when coming down stairs but it happens only about 25% of the time. OBJECTIVE Current Objective Findings: Up and down stairs without problem, gait is no longer antalgic. Requires significant help with lungeinto hands. Treatment/Education Today: Tx included joint mobilization to the R knee into full flexion. Lunges x 15 R and L with cues for foot spacing and it was performed on 2 different size chairs for support to encourage patient to perform at home. No knee pain with this activity. step ups x 20 reps R. One legged balance on the R and L with and without towel and added to home exercise program Total Treatment Time: 25 minutes Current Home Exercise Program List: See eval ASSESSMENT/PROGRESS TOWARD GOALS: Blane tx well. Post tx patient is able to perform the exercises but is requires great effort but without pain. Functional Goals/Outcomes: HEP/Independent Management: Demonstrate independence with HEP and self- management following each treatment session ADL's: Squat to pickling grader items from floor with minimal/no symptoms in 4 weeks. Negotiate stairs without dropping down onto L leg in 4 weeks Work: transfer stand to sit and sit to analyst geochemical prospecting 4 weeks. Plan: Follow up in 2 weeks, check lunge, stairs and walking pace around the ivan. Therapeutic Exercises 95463 15 min Manual therapy 15758 10 min Total tx time 25min Marlon Jones PT [id number] documented in this encounter Plan of Treatment Not on filedocumented as of this encounter Visit Diagnoses Diagnosis Knee pain - Primary Pain in joint, lower leg documented in this encounter Care Teams Greenhouse Technician Relationship Specialty Start Date End Date Titus Medina MD PCP - General 09/16/1996 03/17/15 documented as of this encounter
--- OUTSIDE RECORDS SUMMARY | 2022-07-30 19:44 | XMS_ITS | Encounter Summary ---
:1945 [facility] Organization [facility] Address [address], [place] [address] Care Team Providers Name Role Phone No Primary/Referring, Phy Primary Care Provider Unavailable Reason for Visit Reason Comments Elbow Pain Encounter Details Date Type Department Care Team Description 08/07/2016 Nurse Triage Careline Unknown, Physician Elbow Pain [address], [place] [address] [place] [address] [phone] (Wo rk) Social History Tobacco Use Types Packs/Day Years Used Date Smoking Tobacco: Never Smokeless Tobacco: Never Alcohol Use Standard Drinks/Week Comments No 0 (1 standard drink = 0.6 oz pure alcoho l) Sex Assigned at Date Recorded Not on file documented as of this encounter Nursing Notes Lovely Valdez RN - 08/07/2016 12:49 PM CDT Protocol: ELBOW [id number] Affirmative: [1] MODERATE pain (e.g., interferes with normal activities) AND [2] present > 3 days Disposition of See PCP When Office Is Open (Within 3 Days) suggested. Lovely Valdez RN - 08/07/2016 12:48 PM CDT VERIFIED and FULL NAME of PATIENT: Yes CONCERN: Patient reports left elbow pain for the last month, and now the pain is mildly present in the right elbow as well. Feels the need to rest the left elbow, and use the right elbow more. Denies injury to either elbow. Denies redness and swelling as well. MEDICAL HISTORY: Reviewed MEDICATION LIST: Reviewed ALLERGIES: Reviewed Natasha Horton - 08/07/2016 12:41 PM CDT Which care system or clinic is the patient normally seen at? [facility]. Situation: Medical: Pt c/o pain in her elbow Plan:A nurse will return your call. If your symptoms change for the worse, please call us back [phone].. documented in this encounter Plan of Treatment Not on filedocumented as of this encounter Visit Diagnoses Not on filedocumented in this encounter Care Teams Research Engineer Relationship Specialty Start Date End Date No Primary/Referring, Phy PCP - General 03/18/15 documented as of this encounter
--- OUTSIDE RECORDS SUMMARY | 2022-07-30 19:44 | XMS_ITS | Encounter Summary ---
:1945 Author Organization [facility] Address [address] [place] [address] Care Team Providers Name Role Phone Titus Medina MD Primary Care Provider Reason for Visit Reason Comments Knee Problem Encounter Details Date Type Department Care Team Description 01/22/2014 Office Visit [facility] Adi Jones Knee pain (Primary Therapy D, PT Dx) [address] [place], [place] [phone] (Wo rk) Social History Tobacco Use Types Packs/Day Years Used Date Smoking Tobacco: Never Assessed Sex Assigned at Date Recorded Not on file documented as of this encounter Progress Notes Adi Jones D, PT - 01/22/2014 8:23 AM CDT Encounter date: 01/22/2014 Pt : 1945 [facility] Physical Therapy Progress Note Initial Certification Period: 01/09/2014 to 02/08/14 Referring Provider: Pascual Parker Referring Diagnosis: Knee pain Visit Diagnosis/ICD code: Diagnosis (ICD9) ICD-9-CM 1. 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 She statesthat the exercises are getting easier and make her less tired. She does get pain directly behind theknee cap if she is going to have pain. States she probably feels it once per day. OBJECTIVE Current Objective Findings: Deep squats causes patient's similar pain on the L. Treatment/Education Today: Tx included joint mobilization to the L hip with posterior and lateral glides on the L hip. Manual stretch into IR x 10 reps. progressed home exercise program that included partial lunges x 20 reps andalso step ups on 6 in step at home x 20 reps. In clinic patient performed step ups x 8 inch step x 5with some increased pain. demonstrated how to get off of the tabl.e Total Treatment Time: 25 minutes Current Home Exercise Program List: See eval ASSESSMENT/PROGRESS TOWARD GOALS: Blane tx well. post tx patient is progressing slowly but surely. Needs greater time to strengthen. Functional Goals/Outcomes: HEP/Independent Management: Demonstrate independence with HEP and self- management following each treatment session ADL's: Squat to roll picker items from floor with minimal/no symptoms in 4 weeks. Negotiate stairs without dropping down onto L leg in 4 weeks Work: transfer stand to sit and sit to buildings painter 4 weeks. Plan: Follow up after 2 weeks and check tolerance with L knee pain. Therapeutic Exercises 37053 15 min Manual therapy 33593 10 min Total tx time 25min Marlon Jones PT 6551\ documented in this encounter Plan of Treatment Not on filedocumented as of this encounter Visit Diagnoses Diagnosis Knee pain - Primary Pain in joint, lower leg documented in this encounter Care Teams Vp Global Marketing Solutions Relationship Specialty Start Date End Date Titus Medina MD PCP - General 09/16/1996 03/17/15 documented as of this encounter
--- OUTSIDE RECORDS SUMMARY | 2022-07-30 19:44 | XMS_ITS | Encounter Summary ---
:1945 Author Organization [facility] Address [address] [place] [address] Care Team Providers Name Role Phone Titus Medina MD Primary Care Provider Reason for Visit Reason Comments Knee Pain or Injury HIP PAIN Encounter Details Date Type Department Care Team Description 07/27/2011 Office Visit [facility] Adi Jones Knee pain, bilateral Therapy D, PT (Primary Dx) [address] [place], [place] [phone] (Wo rk) Social History Tobacco Use Types Packs/Day Years Used Date Smoking Tobacco: Never Assessed Sex Assigned at Date Recorded Not on file documented as of this encounter Progress Notes Adi Jones D, PT - 07/28/2011 7:47 AM CDT Physical Therapy Lower Extremity Evaluation/Plan of Care [...] any for of squatting or kneeling at quaker. Is frustrated that she can not rise up off the floor without help and has pinching in her L hip. All of this has come one without any trauma or incident despite the fact that she has done her exercises that she was given and can now do 20 reps of the three exercises. SUBJECTIVE: Pain Details: Pain location: Left hip. Left knee. Right knee. Current pain intensity level: 3/10. Pain quality: Aching. Aggravating factors: Sit to stand. Bending. Squatting. Kneeling. Stairs- ascending. Work Tasks. Relieving factors: Restriction of activity. Past Medical History: Unremarkable per patient report. Falls in Past Year: No. 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 Sitting in low chairs Leisure/Sport Activities: Walking and performing home exercise program from physical therapy Patient's Therapy Goal: To be able to kneel in quaker, to rise without assistance from the floor, not to flop into low chairs. OBJECTIVE: General: Mood, orientation, and behavior were appropriate. Patient was alert and oriented. ROM: L hip limited with anterior pinching at 120 degrees, decreased ER at 25 degrees, IR decreased by 15degrees. L knee full extension and painful flexion at EROM anteriorly, R knee extension painful on EROM posteriorly, flexion limited and painful at EROM. Joint Mobility: Hypomobile - Capsular tightness into the L hip posterior and inferior, R and L knee anterior and R knee posterior. Functional Tests: -Single leg stance within normal limits. -Double leg squat - Patient does well until a certain point and then does not have the strength to go any lower. . -Lunge - Patient does well until a certain point and then does not have the strength to go any lower. Standardized Functional Scores: Hip Test: 57% Knee TEST: 83% L and 60% R TREATMENT TODAY -Physical Therapy Evaluation (CPT 35280) -Manual Therapy, 1 or more regions (CPT 97694) - 15 minutes: high velocity low amplitude thrust manipulation to the L hip, joint mobilization to the L and R knee into flexion in supine, joint mobilization to the L hip posterior and lateral hip capsule. also joint mobilization into the R knee into extension with tibia on femur and femur on tibia. -Therapeutic exercise (CPT 15598) - 8 minutes: home exercise program discussed at length the lunges and to use support with lunging to increase ROM and strength at EROM. also added to home exercise program one legged bridge and dc'd 2 foot bridge x 10 reps. Response to treatment: Post tx ROM improving. Patinet needs to focus on new adjustments to exercise and follow up so get full resolution of treatment. Plan for next treatment: Focus on progressing ROM and strenght at EROM. ASSESSMENT: Therapist Impression/ICD-9 Code: Clinical findings are consistent with referring diagnosis. Arthralgia, hip (719.45). Arthralgia, Knee/Patellofemoral pain (719.46). Physical Therapy Practice Pattern: Impaired joint mobility, motor function, muscle performance, and ROM associated with connective tissue dysfunction (4D). Functional Limitations: Sit with controlled decent, kneel and rise from kneeling with the use of hands Impairments: Joint Pain: Pelvic region & thigh (719.45). Joint Pain: lower leg (719.46). Joint Stiffness, lower leg (719.56). Muscle weakness, (780.79). Barriers to Goal Achievement: None apparent. Rehab Prognosis: Good for achieving established goals. PLAN Planned Intervention/Education: Manual therapy. Therapeutic exercise. Frequency/Duration: Once a week for 45 days. Discharge Plan: Satisfactory goals are achieved. Consent: Risks, benefits and alternatives to treatment have been explained. Patient and/or family inagreement with care plan. Expected Functional Outcomes: - Able to squat to flower buncher or picker items from floor with minimal to no symptoms in 4 weeks. - Able to sit for greater than 1 hour with minimal to no symptoms (more the action of lowering self down into chair then actual time.) in 4 weeks. - Able to transition sit to stand with normal positioning and weight bearing in 4 weeks. TOTAL TREATMENT TIME: 40 minutes. Evaluation and Plan of Care completed by: Marlon Jones, PT, 7027, 07/28/2011 The cut press operator is completed by the therapist and the physician electronic signature certifies medical necessity for the plan above. *SH~REHAB~PTMSLE ~ Shorthand Note completed on: 07/28/2011 7:46 AM documented in this encounter Plan of Treatment Not on filedocumented as of this encounter Visit Diagnoses Diagnosis Knee pain, bilateral - Primary Pain in joint, lower leg documented in this encounter Care Teams Aviation Survival Technician Relationship Specialty Start Date End Date Titus Medina MD PCP - General 09/16/1996 03/17/15 documented as of this encounter
--- OUTSIDE RECORDS SUMMARY | 2022-07-30 19:44 | XMS_ITS | Encounter Summary ---
:1945 Author Organization [facility] Address [address] [place] [address] Care Team Providers Name Role Phone Titus Medina MD Primary Care Provider Encounter Details Date Type Department Care Team Description 03/30/2010 PN Conversion Only TANK CAR INSPECTOR 3850 CON[address] Elizabeth Trujillo MD [address] [place] [address] [place] [address] (Wo rk) Social History Tobacco Use Types Packs/Day Years Used Date Smoking Tobacco: Never Assessed Sex Assigned at Date Recorded Not on file documented as of this encounter Plan of Treatment Not on filedocumented as of this encounter Procedures Procedure Name Priority Date/Time Associated Comments Diagnosis URINE MICROSCOPIC Routine 03/30/2010 8:59 AM Resu lts for this CDT procedure are i n the results section. URINALYSIS Routine 03/30/2010 8:59 AM Results f or this ROUTINE(MICRO IF POS) CDT proced ure are in the results section. documented in this encounter Results (ABNORMAL) URINE MICROSCOPIC (03/30/2010 8:59 AM CDT) [facility] gist Method Time Signature White Blood >100 (A) 0 - 4 HP CONVERSION Cells Urine /HPF Red Blood Cells 50-100 (A) 0 - 2 HP CONVERSION Urine /HPF Epithelial Few /HPF HP CONVERSION Cells Specimen (Source) Anatomical Collection Method Collection Time Re ceived Time Location / / Volume Laterality 03/30/2010 8:59 AM CDT Elizabeth Trujillo MD LAB_1 Performing Organization Address City/[facility]/ZIP Code Phon e Number HP CONVERSION (ABNORMAL) URINALYSIS ROUTINE(MICRO IF POS) (03/30/2010 8:59 AM CDT) [facility] gist Method Time Signature Urine Type Cln catch No normal HP CONVERSION range Turbidity Clear Clear HP CONVERSION U BILI Negative Negative HP CONVERSION Blood Urine Large (A) Negative HP CONVERSION Glucose, Negative Neg-30 HP CONVERSION Qualitative U mg/dL Ketones Negative Negative HP CONVERSION Leukocyte Moderate Negative HP CONVERSION Esterase Urine (A) Nitrite Urine Positive Negative HP CONVERSION (A) pH Urine 6.0 5.0 - 8.0 HP CONVERSION Protein Urine 30 (A) Neg - Trace HP CONVERSION mg/dL U Specific 1.025 1.005 - HP CONVERSION [place] 1.030 Urobilinogen Negative Negative HP CONVERSION Urine Eu/dL Specimen (Source) Anatomical Collection Method Collection Time Re ceived Time Location / / Volume Laterality 03/30/2010 8:59 AM CDT Elizabeth Trujillo MD LAB_1 Performing Organization Address City/[facility]/ZIP [facility] Phon e Number HP CONVERSION documented in this encounter Visit Diagnoses Not on filedocumented in this encounter Care Teams Ticker Wirer Relationship Specialty Start Date End Date Titus Medina MD PCP - General 09/16/1996 03/17/15 documented as of this encounter
--- OUTSIDE RECORDS SUMMARY | 2022-07-30 19:44 | XMS_ITS | Encounter Summary ---
:1945 Author Organization [facility] Address [address] [place] [address] Care Team Providers Name Role Phone No Primary/Referring, Phy Primary Care Provider Unavailable Reason for Visit Reason Comments LAB TESTS, NOS Encounter Details Date Type Department Care Team Description 03/20/2015 Telephone [facility] Agustin, JUNIOR WILDER TS, NOS Practice EVELYNE Richards [address] [place], [place] [id number] [address] [place] [address] [place], [place] [phone] (Wo rk) Social History Tobacco Use Types Packs/Day Years Used Date Smoking Tobacco: Never Smokeless Tobacco: Never Alcohol Use Standard Drinks/Week Comments No 0 (1 standard drink = 0.6 oz pure alcoho l) Sex Assigned at Date Recorded Not on file documented as of this encounter Nursing Notes Marcelina David CMA - 03/20/2015 8:36 AM CDT Pt was informed of her normal results as listed below. Pt would like a copy of her test results mailed out to her. Copy of test results will be mailed out to pt. Marcelina David CMA 03/20/2015, 8:39 AM Marcelina David CMA - 03/20/2015 8:34 AM CDT Please inform pt about her labs, Hemogram/plts and BMP labs are normal/negative. Marcelina David CMA 03/20/2015, 8:35 AM documented in this encounter Plan of Treatment Not on filedocumented as of this encounter Visit Diagnoses Not on filedocumented in this encounter Care Teams Independent Jeweler Relationship Specialty Start Date End Date No Primary/Referring, Phy PCP - General 03/18/15 documented as of this encounter
--- OUTSIDE RECORDS SUMMARY | 2022-07-30 19:44 | XMS_ITS | Encounter Summary ---
:1945 Author Organization [facility] Address [address] [place] [address] Care Team Providers Name Role Phone Lisseth Vang MD Primary Care Provider [phone] Reason for Visit Reason Comments Preop Exam Encounter Details Date Type Department Care Team Description 04/21/2017 Telephone [facility] Nicolle Orlando PA-C Preop Exam Practice [address] [place], [place] [address] [place] [address] [phone] Social History Tobacco Use Types Packs/Day Years Used Date Smoking Tobacco: Never Smokeless Tobacco: Never Alcohol Use Standard Drinks/Week Comments No 0 (1 standard drink = 0.6 oz pure alcoho l) Sex Assigned at Date Recorded Not on file documented as of this encounter Nursing Notes Rika Klein - 04/21/2017 5:05 PM CDT Faxed Pre-Op / LM for patient notifying her a copy is at the table and desk finisher Closing JULISSA Klein 04/21/2017, 5:06 PM Nicolle Orlando PA-C - 04/21/2017 4:10 PM CDT Please fax a copy of the completed PreOp visit (04/19/2017) and a copy of the EKG print-out to the [facility] Pre-Admission Nursing Department: FAX: [phone] Please also notify the patient that the clinic note is complete if she should like to poultry picker a copyof the note for her records. Patient's procedure is scheduled for: 04/27/2017 Thank you, Nicolle Orlando PA-C 04/21/2017, 4:11 PM documented in this encounter Plan of Treatment Not on filedocumented as of this encounter Visit Diagnoses Not on filedocumented in this encounter Care Teams Computer Support Specialist Instructor Relationship Specialty Start Date End Date Lisseth Vang MD PCP - General Family Practice 04/07/17 07/03/[address] [facility] [address] [place] [address] documented as of this encounter
--- OUTSIDE RECORDS SUMMARY | 2022-07-30 19:44 | XMS_ITS | Encounter Summary ---
:1945 Author Organization [facility] Address [address], [place] [address] Care Team Providers Name Role Phone DianaeaMargot man MD Primary Care Provider Encounter Details Date Type Department Care Team Description 03/14/2015 Scanned History External to [facility], [facility] TRANSF ERRED RECORDS [facility] Social History Tobacco Use Types Packs/Day Years Used Date Smoking Tobacco: Never Assessed Sex Assigned at Date Recorded Not on file documented as of this encounter Plan of Treatment Not on filedocumented as of this encounter Visit Diagnoses Not on filedocumented in this encounter Care Teams Striping Machine Operator Relationship Specialty Start Date End Date Margot Branham MD PCP - General Internal Medicine 07/04/[address] [id number] documented as of this encounter
--- OUTSIDE RECORDS SUMMARY | 2022-07-30 19:45 | XMS_ITS | Encounter Summary ---
:1945 Author Organization [facility] Address [address] [place] [address] Care Team Providers Name Role Phone Titus Medina MD Primary Care Provider Encounter Details Date Type Department Care Team Description 02/13/2008 Office Visit [facility] Adi Jones, Therapy PT [address] [place], [place] [address] [place] [address] [phone] (Wo rk) Social History Tobacco Use Types Packs/Day Years Used Date Smoking Tobacco: Never Assessed Sex Assigned at Date Recorded Not on file documented as of this encounter Plan of Treatment Not on filedocumented as of this encounter Visit Diagnoses Not on filedocumented in this encounter Care Teams Coin Dealer Relationship Specialty Start Date End Date Titus Medina MD PCP - General 09/16/1996 03/17/15 documented as of this encounter
--- OUTSIDE RECORDS SUMMARY | 2022-07-30 19:45 | XMS_ITS | Encounter Summary ---
:1945 Author Organization [facility] Address [address] [place] [address] Care Team Providers Name Role Phone Titus Medina MD Primary Care Provider Encounter Details Date Type Department Care Team Description 02/23/2008 Office Visit [facility] Adi Jones, Therapy PT [address] [facility] [place], [place] [address] [place] [address] [phone] (Wo rk) Social History Tobacco Use Types Packs/Day Years Used Date Smoking Tobacco: Never Assessed Sex Assigned at Date Recorded Not on file documented as of this encounter Plan of Treatment Not on filedocumented as of this encounter Visit Diagnoses Not on filedocumented in this encounter Care Teams Pulp Grinder Feeder Relationship Specialty Start Date End Date Titus Medina MD PCP - General 09/16/1996 03/17/15 documented as of this encounter
--- OUTSIDE RECORDS SUMMARY | 2022-07-30 19:45 | XMS_ITS | Encounter Summary ---
:1945 Author Organization [facility] Address [address] [place] [address] Care Team Providers Name Role Phone Titus Medina MD Primary Care Provider Reason for Visit Reason Comments Other Encounter Details Date Type Department Care Team Description 02/19/2009 Telephone [facility], Message Other [address] [place], [place] [address] Social History Tobacco Use Types Packs/Day Years Used Date Smoking Tobacco: Never Assessed Sex Assigned at Date Recorded Not on file documented as of this encounter Progress Notes Center, Message - 02/19/2009 10:00 AM CDT Phone Note filed by [employer] at 01/23/11228 Author: [employer] Service: (none) Author Type: (none) Filed: 01/23/11228 Note Time: 02/19/09 1000 Status: Signed Folding Machine Operator: [employer] (Resource) MESSAGE TO CARE TEAM NAME OF CALLER:Ramona Sheikh NAME OF CLINICIAN:Dr Margot Pavon MESSAGE: She had a colonoscopy done approximately 2 years ago and she would like the date and the name of the place that we referred her to , it was not a [facility]. Please leave this information on her message machine at home PHARMACY NAME: PHARMACY PHONE #: CITY: CALL BACK PHONE OR CELL PHONE:[phone], please leave detailed message BEST TIME TO CALL BACK:anytime IS IT OK TO LEAVE A CONFIDENTIAL MESSAGE ON THIS VOICEMAIL?yes *ECODE~PNMSG Created on 19Feb2009 10:00am by FABIAN JACKSON On 19Feb2009 10:58am ANAT TANG wrote: Left the requested information on her voicemail. Acknowledged by ANAT TANG on 10:58am RMATICS SPECIALIST documented in this encounter Plan of Treatment Not on filedocumented as of this encounter Visit Diagnoses Not on filedocumented in this encounter Care Teams Athlete Marketing Agent Relationship Specialty Start Date End Date Titus Medina MD PCP - General 09/16/1996 03/17/15 documented as of this encounter
--- OUTSIDE RECORDS SUMMARY | 2022-07-30 19:45 | XMS_ITS | Encounter Summary ---
:1945 Author Organization [facility] Address [address], [place] [address] Care Team Providers Name Role Phone Titus Medina MD Primary Care Provider Encounter Details Date Type Department Care Team Description 04/19/2008 Orders Only HP Claims MD Jayashree Security Contact Bill [address] [place] [address] Mailstop [id number] [phone] (Wo rk) Social History Tobacco Use Types Packs/Day Years Used Date Smoking Tobacco: Never Assessed Sex Assigned at Date Recorded Not on file documented as of this encounter Plan of Treatment Not on filedocumented as of this encounter Visit Diagnoses Not on filedocumented in this encounter Care Teams Rail Track Layer Relationship Specialty Start Date End Date Titus Medina MD PCP - General 09/16/1996 03/17/15 documented as of this encounter
--- OUTSIDE RECORDS SUMMARY | 2022-07-30 19:45 | XMS_ITS | Encounter Summary ---
:1945 Author Organization [facility] Address [address] [place] [address] Care Team Providers Name Role Phone Titus Medina MD Primary Care Provider Encounter Details Date Type Department Care Team Description 10/08/2008 Office Visit [facility] 38[address] Urgent Elisha chong, Care Gómez Sorenson MD [address] [facility] [address] [place] [address] [place], [place] [id number] (Wo rk) Social History Tobacco Use Types Packs/Day Years Used Date Smoking Tobacco: Never Assessed Sex Assigned at Date Recorded Not on file documented as of this encounter Last Filed Vital Signs Vital Sign Reading Time Taken Comments Blood Pressure 136/86 10/08/2008 5:55 PM MANAGER OF PMO Pulse 70 10/08/2008 5:55 PM MANAGER OF PMO Temperature 36.4 ??C (97.5 ??F) 10/08/2008 5:55 C: 36.4 C Si multaneous PM MANAGER OF PMO filing. User may not have seen previo us data. Respiratory Rate 16 10/08/2008 5:55 PM MANAGER OF PMO Oxygen Saturation - - Inhaled Oxygen - - Concentration Weight - - Height - - Body Mass Index - - documented in this encounter Progress Notes Gómez Ruiz MD - 10/08/2008 12:01 AM CST Progress Notes signed by Yas Starr MD at 10/23/08 1413 Author: Yas Starr MD Service: (none) Author Type: Physician Filed: 01/24/11 0945 Note Time: 10/08/08 0001 Status: Signed Testing Manager: Yas Starr MD (Physician) NAME: YIMI GARCIA MR#: [id number] ACCT: [id number] VISIT: [id number] DICTATING CLINICIAN: Yas Starr MD CONFIRM #: [id number] LOC: 420 CLINIC PROGRESS NOTE DATE OF VISIT: 10/08/2008 SUBJECTIVE: This is a 63-year-old woman who has had severe low back pain after shoveling her mother's driveway 5 days ago in [place]. Has been taking some Tylenol since then and kind of tried to loosen it up, but did not help and decided to come in, but also complained of sinus pressure, congestion, and cough for about 4 or 5 weeks. Off and on, some days better, some days worse. The cough is mostly dry. Does not have any fever, chills, night sweat, difficulty breathing. Denies any nausea or vomiting here or GI symptom. No urinary symptom. PAST MEDICAL HISTORY: She is not a smoker. She has not had any history of emphysema. She used some zslc-nve-xuhhxxu medicine for this cough which is not helping. Other past medical history: Meniere disease, lower back pain, menopause, plantar fasciitis, hearing loss. She is postmenopausal. OBJECTIVE: VS: Normal. T: Afebrile. O2 sat: 97% on room air. HEENT: There is nasal congestion, minimal postnasal drip. Sinuses not tender. TMs retract. Conjunctivae clear. No neck lymphadenitis. LUNGS: Clear to auscultation. No rale or wheezing. HEART: Regular rhythm. ABDOMEN: Soft. EXTREMITIES: Moves all the extremities. DTRs normal. Babinski negative. No sensory deficit to light touch. She denies any radiation of the pain to lower extremity. Range of motion in lower back somehow limited, particularly for backward, and does have decrease lordosis of lumbar area. No point tenderness. Straight leg raises were negative. Distal pulse symmetrically present, 2+ in both feet. No abdominal bruit. ASSESSMENT: 1. Low back pain, seems to be lack of a stretching type exercise and deconditioning and musculoskeletal type pain. 2. Sinus congestion, chronic sinusitis, and postnasal drip. PLAN: Given a prescription for amoxicillin t.i.d. for 10 days based on this information that she told me for last week when she was cleaning her teeth by dentist; was given 5 amoxicillin and that cleared the nasal discharge from greenish to mucousy, so she may continue with the amoxicillin for 10 days now. Saline nose drop. I sent her for physical therapy of lower back, Tylenol, ibuprofen, and if not better, have followup. [facility]:[id number] C: 10/09/08 11:07 CONFIRM #: [id number] GER OF PMO documented in this encounter Plan of Treatment Not on filedocumented as of this encounter Visit Diagnoses Not on filedocumented in this encounter Care Teams Computer Systems Software Engineer Relationship Specialty Start Date End Date Titus Medina MD PCP - General 09/16/1996 03/17/15 documented as of this encounter
--- OUTSIDE RECORDS SUMMARY | 2022-07-30 19:45 | XMS_ITS | Encounter Summary ---
:1945 Author Organization [facility] Address [address] [place] [address] Care Team Providers Name Role Phone Titus Medina MD Primary Care Provider Encounter Details Date Type Department Care Team Description 03/12/2008 Office Visit [place] [facility] Adi [facility], [facility] PT [address] [facility] [place], [place] [address] [place] [address] [phone] (Wo rk) Social History Tobacco Use Types Packs/Day Years Used Date Smoking Tobacco: Never Assessed Sex Assigned at Date Recorded Not on file documented as of this encounter Plan of Treatment Not on filedocumented as of this encounter Visit Diagnoses Not on filedocumented in this encounter Care Teams Asphalt Tar And Gravel Roofer Relationship Specialty Start Date End Date Titus Medina MD PCP - General 09/16/1996 03/17/15 documented as of this encounter
--- OUTSIDE RECORDS SUMMARY | 2022-07-30 19:45 | XMS_ITS | Encounter Summary ---
:1945 [facility] Address [address] [place] [address] Care Team Providers Name Role Phone Titus Medina MD Primary Care Provider Encounter Details Date Type Department Care Team Description 11/01/2008 Office Visit [place] [facility] Adi Jones, Therapy PT [address] [facility] [place], [place] [address] [place] [address] [phone] (Wo rk) Social History Tobacco Use Types Packs/Day Years Used Date Smoking Tobacco: Never Assessed Sex Assigned at Date Recorded Not on file documented as of this encounter Progress Notes Adi Jones PT - 11/01/2008 12:01 AM CST Progress Notes signed by Adi Jones PT at 11/01/08 0857 Author: Adi Jones PT Service: (none) Author Type: Physical Therapist Filed: 01/24/11 1022 Note Time: 11/01/082014 Status: Signed Oyster Bed Worker: Adi Jones PT (Resource) Physical Therapy Hip Evaluation Referring Physician: Kevin Rivera Diagnosis: RightArthralgia hip (719.45) Orders: Evaluate and treat. Date/History of Onset: Patient states over the last few months a gradual worsening of lateral R hip pain with sleeping, driving and some walking. Also complains of tightness in posterior knee on R. SUBJECTIVE: Past Medical History: See Electronic Medical Record for past medical history, medications, and drug allergies. 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 OBJECTIVE: General: Mood, orientation, and behavior were appropriate. Patient was alert and oriented. ROM: PROM R knee EROM flexion. Strength: Not tested. Joint mobility: Limited capsule/soft tissue play along lateral border of R hip with neutral rotation with leg against table. Palpation: Greater trochanter is tender to palpation. Gait Examination: Decreased toe off. decreased push off at posterior depression R. TREATMENT TODAY: Evaluation: An evaluation was performed. The patient was educated on the condition, planned therapy intervention and expectations from treatment. Goals were a collaborative effort of the therapist and patient. Manual therapy: STM to lateral ITB with knee flexion and extension R. STM to posterior R knee with upright knee flexion x 10. STM to superior greater trochanter with hip extension. Therapeutic exercise: Patient was provided with the following educational and exercise handouts:Prolonged holds with hip extension on R x 30 sec x 5. Hip extension with knee bent x 10. Lunges x 15 HEP. Response to treatment: Increase in range of motion. Improved gait. Decreased pain. ASSESSMENT: Therapist Impression: Blane tx well. Post treatment Gait normalized and patient able to achieve greater push off into hip extension. Practice Pattern: Impaired joint mobility, motor function, muscle performance, and ROM associated with connective tissue dysfunction (4D). Functional Limitations: Sleeping. Driving. Limitations due to: Muscle weakness. Joint stiffness. Sleep through the night without awakening due to symptoms in 1-2 weeks. Ambulate unlimited distances with minimal to no limp/symptoms in 2-4 weeks. No apparent barriers to learning. Rehab Prognosis: Excellent to achieve above stated goals. PLAN: Planned Intervention/Education: Manual therapy. Neuromuscular re-education. Therapeutic exercise. PT Frequency/Duration: 1 time per week. For 30 days. Plan for next treatment session: Check sleeping tolerance and driving tolerance. Focus on R hip posterior depression. Consent: Risks, benefits and alternatives to treatment have been explained. Patient and/or family in agreement with care plan. Physical Therapy Evaluation (CPT 53919) 15 minutes of Manual Therapy, 1 or more regions (CPT 68050) 15 minutes of Neuromuscular Re-education (CPT 20634) Total treatment time: 40 minutes. Therapist: Marlon Jones, PT, [id number] *SH~TRIA~HIPEVAL ~ Shorthand Note completed on: 11/01/2008 8:57 AM ISHER documented in this encounter Plan of Treatment Not on filedocumented as of this encounter Visit Diagnoses Not on filedocumented in this encounter Care Teams Quality Systems Manager Relationship Specialty Start Date End Date Titus Medina MD PCP - General 09/16/1996 03/17/15 documented as of this encounter
--- OUTSIDE RECORDS SUMMARY | 2022-07-30 19:45 | XMS_ITS | Encounter Summary ---
:1945 Author Organization [facility] Address [address] [place] [address] Care Team Providers Name Role Phone Titus Medina MD Primary Care Provider Encounter Details Date Type Department Care Team Description 02/29/2008 Therapy External to [facility], Provider Social History Tobacco Use Types Packs/Day Years Used Date Smoking Tobacco: Never Assessed Sex Assigned at Date Recorded Not on file documented as of this encounter Progress Notes [facility], Provider - 02/29/2008 12:00 AM CDT documented in this encounter Plan of Treatment Not on filedocumented as of this encounter Visit Diagnoses Not on filedocumented in this encounter Care Teams Wool Mixer Relationship Specialty Start Date End Date Titus Medina MD PCP - General 09/16/1996 03/17/15 documented as of this encounter
--- OUTSIDE RECORDS SUMMARY | 2022-07-30 19:45 | XMS_ITS | Encounter Summary ---
:1945 Author Organization [facility] Address [address] [place] [address] Care Team Providers Name Role Phone Titus Medina MD Primary Care Provider Encounter Details Date Type Department Care Team Description 03/08/2008 Office Visit [place] [facility] Adi Jones, Therapy PT [address] [facility] [place], [place] [address] 4 [place] [address] [phone] (Wo rk) Social History Tobacco Use Types Packs/Day Years Used Date Smoking Tobacco: Never Assessed Sex Assigned at Date Recorded Not on file documented as of this encounter Plan of Treatment Not on filedocumented as of this encounter Visit Diagnoses Not on filedocumented in this encounter Care Teams Air Hole Driller Relationship Specialty Start Date End Date Titus Medina MD PCP - General 09/16/1996 03/17/15 documented as of this encounter
--- OUTSIDE RECORDS SUMMARY | 2022-07-30 19:45 | XMS_ITS | Encounter Summary ---
:1945 Author Organization [facility] Address [address] [place] [address] Care Team Providers Name Role Phone Titus Medina MD Primary Care Provider Encounter Details Date Type Department Care Team Description 02/06/2008 PN Conversion Only POULTRY TRIMMER 39[address] CONV [address] [place] [address] Social History Tobacco Use Types Packs/Day Years Used Date Smoking Tobacco: Never Assessed Sex Assigned at Date Recorded Not on file documented as of this encounter Plan of Treatment Not on filedocumented as of this encounter Visit Diagnoses Not on filedocumented in this encounter Care Teams Mechanical Design Engineer Relationship Specialty Start Date End Date Titus Medina MD PCP - General 09/16/1996 03/17/15 documented as of this encounter
--- OUTSIDE RECORDS SUMMARY | 2022-07-30 19:45 | XMS_ITS | Encounter Summary ---
:1945 Author Organization [facility] Address [address] [place] [address] Care Team Providers Name Role Phone Titus Medina MD Primary Care Provider Encounter Details Date Type Department Care Team Description 11/05/2008 Office Visit [place] [facility] Adi Jones, Therapy PT 2000 [facility]. [address] [place], [place] [address] [place] [address] [phone] (Wo rk) Social History Tobacco Use Types Packs/Day Years Used Date Smoking Tobacco: Never Assessed Sex Assigned at Date Recorded Not on file documented as of this encounter Progress Notes Adi Jones PT - 11/05/2008 12:01 AM CST Progress Notes signed by Adi Jones PT at 11/05/08 0816 Author: Adi Jones PT Service: (none) Author Type: Physical Therapist Filed: 01/24/11 1027 Note Time: 11/05/082014 Status: Signed Ribbon Winder: Adi Jones PT (Resource) [facility] Progress Note Visit Number: SUBJECTIVE: Patient states she is doing well. Her back has been good except with greater then one hour of sitting at the computer when it stiffens up. Also has pain when performing the lunges in posterior hip and leg after approx 12. OBJECTIVE: Tx included STM to posterior hip while lunging x 20. STM to posterior buttock while seated in trunk flexion. Cat/camel seated and on all 4s x 20 each. Functional mobilization to L and R sacral base in camel pos. x 5. Lunges x 20. ASSESSMENT: Post treatment no pain with cat/camel with full extension of sacrum and lunges with no pain in posterior buttock with some discomfort on lateral R thigh . PLAN: Check sitting tolerance and lunge, close to D/C. Procedures: Therapeutic Exercise (CPT 36836) 10 minutes. Manual Therapy, 1 or more regions (CPT 27556) 15 minutes. Total treatment time: 25 minutes. Therapist: .Marlon Jones PT 7070 Shorthand Note completed on: 11/05/2008 8:17 AM *SH~REHAB~TPNB ~ MAKER documented in this encounter Plan of Treatment Not on filedocumented as of this encounter Visit Diagnoses Not on filedocumented in this encounter Care Teams Tinsmith Helper Relationship Specialty Start Date End Date Titus Medina MD PCP - General 09/16/1996 03/17/15 documented as of this encounter
--- OUTSIDE RECORDS SUMMARY | 2022-07-30 19:45 | XMS_ITS | Encounter Summary ---
:1945 Author Organization [facility] Address [address] [place] [address] Care Team Providers Name Role Phone Ttius Medina MD Primary Care Provider Encounter Details Date Type Department Care Team Description 07/23/2008 Procedure Visit [facility]V [id number] Mery Renner MD [address] [place] [address] [place] [address] (Wo rk) Social History Tobacco Use Types Packs/Day Years Used Date Smoking Tobacco: Never Assessed Sex Assigned at Date Recorded Not on file documented as of this encounter Progress Notes Mery Weber MD - 07/23/2008 12:01 AM CDT Progress Notes signed by Mery Weber MD at 07/24/08 1323 Author: Mery Weber MD Service: (none) Author Type: Physician Filed: 01/24/11 0754 Note Time: 07/23/08 0001 Status: Signed Grocery Clerk: Mery Weber MD (Physician) NAME: YIMI GARCIA MR#: [id number] ACCT: [id number] VISIT: [id number] DICTATING CLINICIAN: MERY WEBER MD CONFIRM #: [id number] LOC: 458 CLINIC PROGRESS NOTE DATE OF VISIT: 07/23/2008 SUBJECTIVE: Yimi is here for her third V-beam. Is taking her acyclovir. Has a few she would still like to touch up a little more. Feels like it is at least 60 to 70% improved. Very specific about the ones she wishes to have treated. OBJECTIVE: Using a V-beam, 3 x 10, 6 mm, 9 joules, 31 pulses, the perinasal vessels and a couple on her chin were treated. Then cheeks, chin, perinasal area were treated, 7 mm 6 msec, 8 joules, 96 pulses, spray delay , greater than 15 vessels treated. No problems with last treatment. ASSESSMENT: PLAN: Follow up again as needed. GABRIELLE:[id number] C: 07/23/08 20:47 CONFIRM #: [id number] documented in this encounter Plan of Treatment Not on filedocumented as of this encounter Visit Diagnoses Not on filedocumented in this encounter Care Teams Bias Cutting Machine Operator Vertical Relationship Specialty Start Date End Date Titus Medina MD PCP - General 09/16/1996 03/17/15 documented as of this encounter
--- OUTSIDE RECORDS SUMMARY | 2022-07-30 19:45 | XMS_ITS | Encounter Summary ---
:1945 Author Organization [facility] Address [address] [place] [address] Care Team Providers Name Role Phone Titus Medina MD Primary Care Provider Encounter Details Date Type Department Care Team Description 02/20/2009 Office Visit [facility] Sabi Espinosa, PT [address] [place] [address] [place] [address] [phone] (Wo rk) Social History Tobacco Use Types Packs/Day Years Used Date Smoking Tobacco: Never Assessed Sex Assigned at Date Recorded Not on file documented as of this encounter Progress Notes Sabi Espinosa PT - 02/20/2009 12:01 AM CDT Progress Notes signed by Sabi Espinosa PT at 05/08/09 3621 Author: Sabi Espinosa PT Service: (none) Author Type: Physical Therapist Filed: 01/24/11 1324 Note Time: 02/20/09 0001 Status: Signed Family Day Carer: Sabi Espinosa PT (Physical Therapist) Physical Therapy Discharge Summary Referral Information: Referring Physician: MD Stephane Diagnosis: Left Right Arthralgia hip (719.45). Trochanteric bursitis (726.5). R hip instability and L hip trochanteric bursitis Orders: Evaluate and treat. Date of Onset: 08/04/2008 History of Onset: Pt states that she had a right hip replacement in 2007 and one month later dislocated that hip. Her left hip has started hurting lately with all of her traveling (driving) to see her ill mother in [place]. Visit History Date of first Visit: 02/07/2009 Date of last Visit: 02/20/2009 Total Visits: For treatment received see progress notes in EMR. Treatment Goals and Progress: Able to ambulate unlimited distances with minimal to no limp/symptoms in 4-6 weeks. - Pt was progressing to this goal, but did not complete her therapy sessions. Sit for greater than 1 hour with minimal to no symptoms in 2-4 weeks. - Pt was progressing to this goal, but did not complete her therapy sessions. Drive in 2-4 weeks with ease and safety. - Pt was progressing to this goal, but did not complete her therapy sessions. Return to prior level of leisure or recreational activities including: Pt enjoys walking around a mile a day without an increase in symptoms in 4-6 weeks. - Pt was progressing to this goal, but did not complete her therapy sessions. Reason for Discharge: Pt did not return for her follow-up appointments. Her mother was dying from cancer and she was making frequent trips to attend to her mother's needs. Response to Treatment: Good. Follow-up Plan/Recommendations: Patient to continue with home exercise program. Therapist: Sabi Espinosa PT #[id number] *SH~TRIA~PTDS ~ Shorthand Note completed on: 05/08/2009 5:41 PM Emmanuel Bernal PT - 02/20/2009 12:01 AM CDT Progress Notes signed by Emmanuel Bernal PT at 02/22/09 1243 Author: Emmanuel Bernal PT Service: (none) Author Type: Physical Therapist Filed: 01/24/11 7844 Note Time: 02/20/09 0001 Status: Signed Family Day Carer: Emmanuel Bernal PT (Physical Therapist) [facility] Referring Physician: MD Stephane Diagnosis: Left Right Arthralgia hip (719.45). Trochanteric bursitis (726.5). R hip instability and L hip trochanteric bursitis Orders: Evaluate and treat. Date of Onset: 08/04/2008 History of Onset: Pt states that she had a right hip replacement in 2007 and one month later dislocated that hip. Her left hip has started hurting lately with all of her traveling (driving) to see her ill mother in [place]. Subjective: Pt states that her left hipis doing really well, but right is hurting more now.. Pt notes that she is driving 200 mile trip again to be with her mother and will be there for 10 days. Pt's mother is dying from CA in [place]. Objective: US performed to the left hip. 2Mhz, 2.0 w/cm2 for 10 minutes. Patient instructed in IT band friction massage and to ice. Step-ups on a 4 step added to HEP Performed glut med exercise bilaterally. Supine bridges done with level hips x 10 Pt had questions about a glut stretch that she was doing. She was doing a small squat. Pt was told not to do IT band stretch sidelying to protect her hip replacement. Assessment: Pt tolerated treatment well and responses positively to US and exercise. Pt will be seen next week to work towards meeting goals. Plan: Continue treatment of US and exercise and add glut stretch. Continue to work to meeting all goals of painfree ADL's. Contact her doctor to see if she can go over 90 or into ADD since her hip replacement Visit Number: 3 Procedures: 25 minutes of Therapeutic Exercise (CPT 92131) 10 minutes of Ultrasound (CPT 48478) Total treatment time: 35 minutes. Therapist: Sabi Espinosa, PT #[id number] *KIKI~CHERYL~Caitlyn ~ Shorthand Note completed on: 02/21/2009 10:35 AM documented in this encounter Plan of Treatment Not on filedocumented as of this encounter Visit Diagnoses Not on filedocumented in this encounter Care Teams Campaign Specialist Relationship Specialty Start Date End Date Titus Medina MD PCP - General 09/16/1996 03/17/15 documented as of this encounter
--- OUTSIDE RECORDS SUMMARY | 2022-07-30 19:45 | XMS_ITS | Encounter Summary ---
:1945 Author Organization [facility] Address [address] [place] [address] Care Team Providers Name Role Phone Titus Medina MD Primary Care Provider Encounter Details Date Type Department Care Team Description 07/10/2009 PN Conversion Only [facility] [address] ad[address] [place], [place] [address] Social History Tobacco Use Types Packs/Day Years Used Date Smoking Tobacco: Never Assessed Sex Assigned at Date Recorded Not on file documented as of this encounter Plan of Treatment Not on filedocumented as of this encounter Procedures Procedure Name Priority Date/Time Associated Diagnosis Comme nts MM MAMMOGRAM Routine 07/10/2009 5:33 PM Results f or this SCREENING BILAT W CDT procedure are in CAD the results section. documented in this encounter Results MM Mammogram Screening Bilat W CAD (07/10/2009 5:33 PM CDT) Anatomical Region Laterality Modality Breast Bilateral Mammography Specimen (Source) Anatomical Location Collection Method / Collectio n Time Received Time / Laterality Volume Narrative 07/11/2009 2:54 PM CDT Comparison is made to films from 04/18/2007 (bilateral). ??There is no significant interval change. Bilateral Breast Findings: There are scattered fibroglandular densi ties (11% - 50% fibroglandular). ??No significant masses , calcifications or other abnormalities are seen. IMPRESSION: BILATERAL BREASTS Negative, no evidence of malignancy. Nor mal interval follow-up is recommended in 12 months. OVERALL ASSESSMENT - CATEGORY 1 - NEGATI VE END OF IMPRESSION Dictating YAHIR YANEZ MD Procedure Note Yahir Kruse - 05/26/2016 Comparison is made to films from 007 (bilateral). There is no significant interval change. Bilateral Breast Findings: There are scattered fibroglandular densi ties (11% - 50% fibroglandular). No significant masses, calcifications or other abnormalities are seen. IMPRESSION: BILATERAL BREASTS Negative, no evidence of malignancy. Nor mal interval follow-up is recommended in 12 months. OVERALL ASSESSMENT - CATEGORY 1 - NEGATI VE END OF IMPRESSION Dictating YAHIR YANEZ MD Lisseth MALAGON documented in this encounter Visit Diagnoses Not on filedocumented in this encounter Care Teams Braiding Machine Tender Relationship Specialty Start Date End Date Titus Medina MD PCP - General 09/16/1996 03/17/15 documented as of this encounter
--- OUTSIDE RECORDS SUMMARY | 2022-07-30 19:45 | XMS_ITS | Encounter Summary ---
:1945 Author Organization [facility] Address [address] [place] [address] Care Team Providers Name Role Phone Titus Medina MD Primary Care Provider Encounter Details Date Type Department Care Team Description 06/13/2009 PN Conversion Only [facility] [address] [place], [place] [address] Social History Tobacco Use Types Packs/Day Years Used Date Smoking Tobacco: Never Assessed Sex Assigned at Date Recorded Not on file documented as of this encounter Plan of Treatment Not on filedocumented as of this encounter Visit Diagnoses Not on filedocumented in this encounter Care Teams Sales And Service Associate Relationship Specialty Start Date End Date Titus Medina MD PCP - General 09/16/1996 03/17/15 documented as of this encounter
--- OUTSIDE RECORDS SUMMARY | 2022-07-30 19:45 | XMS_ITS | Encounter Summary ---
:1945 Author Organization [employer] Address [address] [place] [address] Care Team Providers Name Role Phone Titus Medina MD Primary Care Provider Encounter Details Date Type Department Care Team Description 05/16/2008 PN Conversion Only [facility] [address] [place], [place] [address] Social History Tobacco Use Types Packs/Day Years Used Date Smoking Tobacco: Never Assessed Sex Assigned at Date Recorded Not on file documented as of this encounter Plan of Treatment Not on filedocumented as of this encounter Procedures Procedure Name Priority Date/Time Associated Diagnosis Comme nts MM MAMMOGRAM Routine 05/16/2008 8:43 AM Results f or this SCREENING BILAT W CDT procedure are in CAD the results section. documented in this encounter Results MM Mammogram Screening Bilat W CAD (05/16/2008 8:43 AM CDT) Anatomical Region Laterality Modality Breast Bilateral Mammography Specimen (Source) Anatomical Location Collection Method / Collectio n Time Received Time / Laterality Volume Impressions 05/21/2008 2:32 PM CDT : BILATERAL BREASTS - CATEGORY 2 S/P reduction mammoplasty. Benign, no ev idence of malignancy. Normal interval follow-up is recommended in 12 months. OVERALL ASSESSMENT - BENIGN END OF IMPRESSION Dictating DIO GUTIÉRREZ RADIOLOGIST Narrative 05/21/2008 2:32 PM CDT Comparison is made to films from 04/16/2006 (bilateral). ??There is no significant interval change. Bilateral Breast Findings: There are scattered fibroglandular densi ties. ??The patient has had a previous reduction mammoplasty. Procedure Note Dio Licona - 12/05/2016 Comparison is made to films from 006 (bilateral). There is no significant interval change. Bilateral Breast Findings: There are scattered fibroglandular densi ties. The patient has had a previous reduction mammoplasty. IMPRESSION : BILATERAL BREASTS - CATEGORY 2 S/P reduction mammoplasty. Benign, no ev idence of malignancy. Normal interval follow-up is recommended in 12 months. OVERALL ASSESSMENT - BENIGN END OF IMPRESSION Dictating DIO GUTIÉRREZ RADIOLOGIST Margot Pavon MD RAD VESNA documented in this encounter Visit Diagnoses Not on filedocumented in this encounter Care Teams Advanced Manufacturing Technician Relationship Specialty Start Date End Date Titus Medina MD PCP - General 09/16/1996 03/17/15 documented as of this encounter
--- OUTSIDE RECORDS SUMMARY | 2022-07-30 19:45 | XMS_ITS | Encounter Summary ---
:1945 Author Organization [facility] Address [address] [place] [address] Care Team Providers Name Role Phone Titus Medina MD Primary Care Provider Encounter Details Date Type Department Care Team Description 07/23/2008 PN Conversion Only [facility] [address] [place] [address] Social History Tobacco Use Types Packs/Day Years Used Date Smoking Tobacco: Never Assessed Sex Assigned at Date Recorded Not on file documented as of this encounter Plan of Treatment Not on filedocumented as of this encounter Visit Diagnoses Not on filedocumented in this encounter Care Teams Helicopter Officer Relationship Specialty Start Date End Date Titus Medina MD PCP - General 09/16/1996 03/17/15 documented as of this encounter
--- OUTSIDE RECORDS SUMMARY | 2022-07-30 19:45 | XMS_ITS | Encounter Summary ---
:1945 Author Organization [facility] Address [address] [place] [address] Care Team Providers Name Role Phone Titus Medina MD Primary Care Provider Encounter Details Date Type Department Care Team Description 03/01/2008 Office Visit [place] [facility] Adi Jones, Therapy PT [address] [facility] [place], [place] [address] [place] [address] [phone] (Wo rk) Social History Tobacco Use Types Packs/Day Years Used Date Smoking Tobacco: Never Assessed Sex Assigned at Date Recorded Not on file documented as of this encounter Plan of Treatment Not on filedocumented as of this encounter Visit Diagnoses Not on filedocumented in this encounter Care Teams Supervisor Farm Equipment Maintenance Relationship Specialty Start Date End Date Titus Medina MD PCP - General 09/16/1996 03/17/15 documented as of this encounter
--- OUTSIDE RECORDS SUMMARY | 2022-07-30 19:45 | XMS_ITS | Encounter Summary ---
:1945 Author Organization [facility] Address [address] [address] Care Team Providers Name Role Phone Titus Medina MD Primary Care Provider Encounter Details Date Type Department Care Team Description 02/13/2009 Office Visit [facility] Physical Therap Sabi Blevins, PT [address] [place] [address] [address] [place] [address] [phone] (Wo rk) Social History Tobacco Use Types Packs/Day Years Used Date Smoking Tobacco: Never Assessed Sex Assigned at Date Recorded Not on file documented as of this encounter Progress Notes Emmanuel Bernal, PT - 02/13/2009 12:01 AM CDT Progress Notes signed by Emmanuel Bernal PT at 02/14/09 1138 Author: Emmanuel Bernal PT Service: (none) Author Type: Physical Therapist Filed: 01/24/11 1311 Note Time: 02/13/09 0001 Status: Signed Rn Forensic: Emmanuel Bernal PT (Physical Therapist) [facility] [place] Referring Physician: MD Stephane Diagnosis: Left Right [...] (driving) to see her ill mother in [place]. Subjective: Pt states that her left hip felt very good after the US treatment. Right hip remained the same. Pt notes that her 200 mile trip was difficult with prolonged sitting. Pt's mother is dying from CA in [place]. Objective: US performed to the left hip. 2Mhz, 2.0 w/cm2 for 10 minutes. Patient instructed in IT band friction massage and to ice. Step-ups on a 4 step added to HEP Performed glut med exercise bilaterally. Supine bridges done with level hips x 10 Pt was told not to do IT band stretch sidelying to protect her hip replacement. Assessment: Pt tolerated treatment well and responses positively to US and exercise. Pt will be seen next week to work towards meeting goals. Plan: Continue treatment of US and exercise and add glut stretch. Continue to work to meeting all goals of painfree ADL's. Visit Number: Procedures: 20 minutes of Therapeutic Activities (CPT 97098) 15 minutes of Ultrasound (CPT 44823) Total treatment time: 35 minutes. Therapist: Sabi Espinosa, PT #[id number] *SH~TRIGage~PTBlank ~ Shorthand Note completed on: 02/13/2009 7:25 PM documented in this encounter Plan of Treatment Not on filedocumented as of this encounter Visit Diagnoses Not on filedocumented in this encounter Care Teams Property Economist Relationship Specialty Start Date End Date Titus Medina MD PCP - General 09/16/1996 03/17/15 documented as of this encounter
--- OUTSIDE RECORDS SUMMARY | 2022-07-30 19:45 | XMS_ITS | Encounter Summary ---
:1945 Author Organization [facility] Address [address] [place] [address] Care Team Providers Name Role Phone Titus Medina MD Primary Care Provider Encounter Details Date Type Department Care Team Description 02/06/2008 Procedure Visit [facility] [id number] Mery Renner MD [address] [place] [address] [place] [address] (Wo rk) Social History Tobacco Use Types Packs/Day Years Used Date Smoking Tobacco: Never Assessed Sex Assigned at Date Recorded Not on file documented as of this encounter Progress Notes Mery Pak MD - 02/06/2008 12:01 AM CDT Progress Notes signed by Mery Pak MD at 02/08/08 1350 Author: Mery Pak MD Service: (none) Author Type: Physician Filed: 01/24/11 0351 Note Time: 02/06/08 0001 Status: Signed Patternmaker Apprentice Wood: Mery Pak MD (Physician) NAME: YIMI GARCIA MR#: [id number] ACCT: [id number] VISIT: [id number] DICTATING CLINICIAN: MERY PAK MD JOB: [id number] LOC: 458 CLINIC PROGRESS NOTE DATE OF VISIT: 02/06/2008 SUBJECTIVE: Yimi is here for a second treatment. Did very well with the first, but did have a couple areas of what she described as almost scabby blisters. Three of them are in a row on her right cheek; did not leave any type of sequelae, and I do not see where they were located. She has sensitive skin. After discussing the pros and cons, we elected to proceed again today keeping it in a lower setting. She does have acyclovir. OBJECTIVE: Using a V-Beam 7 mm, 6 msec, 7.5 joules, 247 pulses, spray delay 30/20 both cheeks, chin, perinasal area, and nasal dorsum were treated. Good appropriate response. Greater than 15 vessels ASSESSMENT: PLAN: Follow up in the fall if she feels like further treatment is needed. GABRIELLE:[id number] C: 02/07/08 15:52 DOCUMENT: [id number] documented in this encounter Plan of Treatment Not on filedocumented as of this encounter Visit Diagnoses Not on filedocumented in this encounter Care Teams Police Chief Deputy Relationship Specialty Start Date End Date Titus Medina MD PCP - General 09/16/1996 03/17/15 documented as of this encounter
--- OUTSIDE RECORDS SUMMARY | 2022-07-30 19:45 | XMS_ITS | Encounter Summary ---
:1945 Author Organization [facility] Address [address] [place] [address] Care Team Providers Name Role Phone Titus Medina MD Primary Care Provider Encounter Details Date Type Department Care Team Description 12/06/2008 Office Visit [place] [facility] Adi Jones, Therapy PT [address] [facility]. [address] [place], [place] [address] 4 [place] [address] [phone] (Wo rk) Social History Tobacco Use Types Packs/Day Years Used Date Smoking Tobacco: Never Assessed Sex Assigned at Date Recorded Not on file documented as of this encounter Progress Notes Adi Jones PT - 12/06/2008 12:01 AM CST Progress Notes signed by Adi Jones PT at 03/14/09 1533 Author: Adi Jones PT Service: (none) Author Type: Physical Therapist Filed: 01/24/11 1121 Note Time: 12/06/08 0001 Status: Signed Maintenance Service Technician: Adi Jones PT (Resource) Physical Therapy Discharge Summary Referring Physician: Kevin Rivera Diagnosis: R hip pain. Onset Date: 10/15/2008 Date of First Visit: 10/19/2008 Date of Last Visit: 12/06/2008 Total Visits: Missed Appointments: Examination/Evaluation: See evaluation in Electronic Medical Record completed on the first visit date (listed above). Treatment and education Received: Refer to progress notes in Electronic Medical Records. Initial Compared to Final Outcomes: OBJECTIVE: General: Mood, orientation, and behavior were appropriate. Patient was alert and oriented. Posture/Alignment: Lumbar lordosis decreased. Lumbar Exam: Lumbar Exam - Standing: -ROM: Pain with EROM flexion, extension limited by 25% with pain. Pain with sidebending R and L on R side.WFL -March Test: Positive right. WFL Lumbar Exam - Seated: -ROM: Decreased trunk rotation R in upper L spine. Lumbar Exam - Supine: Not tested. Lumbar Exam - Prone: Limited soft tissue play R and L paraspinals. Joint Mobility: L5 - hypomobility. L5 - pain reproduction. ASSESSMENT: Therapist Impression: Clinical findings consistent with mechanical low back pain. Diagnosis/ICD-9: Low back pain/Lumbago (724.2). - Physical Therapy Practice Pattern: Impaired joint mobility, motor function, muscle performance, ROM and reflex integrity associated with spinal disorders (4F). Functional Limitations: Pain with transitions with sleeping, pain with sit to stand, pain with prolonged sitting. Impairments: Joint Pain (719.48). Muscle weakness, (780.79). Potential Barriers to Goal Achievement: None apparent. Rehab Prognosis: Excellent for established goals. PLAN Planned Intervention/Education: Manual therapy. Therapeutic exercise. Frequency/Duration: Once a week for 3 weeks. Discharge Plan: Satisfactory goals are achieved. Consent: This patient was educated on the condition, planned therapy intervention and expectations from treatment. Goals were a collaborative effort of the therapist and patient. Expected Functional Outcomes: -Resume previous sleep pattern without awakening due to symptoms in 2 weeks. MET - Able to sit with minimal to no symptoms (Computer/school work x 60 min.) in 4 weeks. MET -Able to transition sit to stand with normal positioning and weight bearing in 2 weeks. MET Discharge Reason: Satisfactory goal achievement. Discharge Recommendation: Patient will continue to work independently with home program/self management strategies. Therapist instructed patient to call with questions or concerns regarding the home program. Outcome Measures: Program Group: Spine, lumbar, S/I. Home Program Provided: Yes. Participation Goal: Household maintenance. Hobbies/leisure activities. Participation Goal Met: Yes. Electronically signed by: Marlon Jones, PT, 6281, 03/14/2009 *SH~REHAB~DISCHARGE~ Shorthand Note completed on: 03/14/2009 3:33 PM Adi Jones PT - 12/06/2008 12:01 AM CST Progress Notes signed by Adi Jones PT at 12/06/08 0929 Author: Adi Jones PT Service: (none) Author Type: Physical Therapist Filed: 01/24/11 1119 Note Time: 12/06/08 0001 Status: Signed Maintenance Service Technician: Adi Jones PT (Resource) [facility] Physical Therapy Progress Note Visit Number: SUBJECTIVE: Patient states she was doing very well until a large snow last week. She has re injured her back and is now having pain with rolling over and sitting up in bed. OBJECTIVE: Painful arc with forward flexion with no pain at EROM, pain and limited extension. Tx included HVLT to R SIJ x 2. Functional mobilization to R and L sacral based with prone on elbows. Joint mobilization to R hip with posterior depression. Rolling with PNF resistance at anterior elevation combination isotonics x 10 x 10. Patient also demonstrates limited quad firing and SLR added to HEP x 20. ASSESSMENT: Post tx no pain with AROM and with rolling. . PLAN: D/C next visit check SLR, rolling in bed. Procedures: Neuromuscular Re-education (CPT 89055) 10 minutes. Manual Therapy, 1 or more regions (CPT 01937) 15 minutes. Total treatment time: 25 minutes. Therapist: Marlon Jones PT, 9081 Shorthand Note completed on: 12/06/2008 9:29 AM *SH~REHAB~TPNB ~ RINARY MANAGER documented in this encounter Plan of Treatment Not on filedocumented as of this encounter Visit Diagnoses Not on filedocumented in this encounter Care Teams Head Operator Sulfide Relationship Specialty Start Date End Date Titus Medina MD PCP - General 09/16/1996 03/17/15 documented as of this encounter
--- OUTSIDE RECORDS SUMMARY | 2022-07-30 19:45 | XMS_ITS | Encounter Summary ---
:1945 Author Organization [facility] Address [address] [place] [address] Care Team Providers Name Role Phone Titus Medina MD Primary Care Provider Encounter Details Date Type Department Care Team Description 04/03/2008 Office Visit [place] [facility] Adi Jones, Therapy PT [facility] [address] [place], [place] [address] [address] [place] [address] [phone] (Wo rk) Social History Tobacco Use Types Packs/Day Years Used Date Smoking Tobacco: Never Assessed Sex Assigned at Date Recorded Not on file documented as of this encounter Plan of Treatment Not on filedocumented as of this encounter Visit Diagnoses Not on filedocumented in this encounter Care Teams Scaler Relationship Specialty Start Date End Date Titus Medina MD PCP - General 09/16/1996 03/17/15 documented as of this encounter
--- OUTSIDE RECORDS SUMMARY | 2022-07-30 19:46 | XMS_ITS | Encounter Summary ---
:1945 Author Organization [facility] Address [address] [place] [address] Care Team Providers Name Role Phone Titus Medina MD Primary Care Provider Encounter Details Date Type Department Care Team Description 09/01/2007 PN Conversion Only [facility] Margot Pavon MD [address] [place] [address] (Wo rk) Social History Tobacco Use Types Packs/Day Years Used Date Smoking Tobacco: Never Assessed Sex Assigned at Date Recorded Not on file documented as of this encounter Plan of Treatment Not on filedocumented as of this encounter Procedures Procedure Name Priority Date/Time Associated Comments Diagnosis GLUCOSE Routine 09/01/2007 4:57 PM Results f or this EXECUTIVE OFFICE MANAGER procedure are i n the results section. HEMOGLOBIN, BLOOD Routine 09/01/2007 4:57 PM Resu lts for this EXECUTIVE OFFICE MANAGER procedure are i n the results section. POTASSIUM Routine 09/01/2007 4:57 PM Results f or this EXECUTIVE OFFICE MANAGER procedure are i n the results section. ANATOMICAL PATH Routine 09/01/2007 1:02 PM Result s for this LIQUID BASED EXECUTIVE OFFICE MANAGER procedure are i n the results section. documented in this encounter Results Potassium (09/01/2007 4:57 PM EXECUTIVE OFFICE MANAGER) P athologist Signature Potassium 4.5 3.5 - 5.2 HP CONVERSION mEq/L Specimen (Source) Anatomical Collection Method Collection Time Re ceived Time Location / / Volume Laterality 09/01/2007 4:57 PM EXECUTIVE OFFICE MANAGER Margot Pavon MD LAB_1 Performing Organization Address City/[facility]/ZIP Code Phon e Number HP CONVERSION Glucose (09/01/2007 4:57 PM EXECUTIVE OFFICE MANAGER) P athologist Signature Lab Glucose 97 60 - 100 HP CONVERSION mg/dL Specimen (Source) Anatomical Collection Method Collection Time Re ceived Time Location / / Volume Laterality 09/01/2007 4:57 PM EXECUTIVE OFFICE MANAGER Margot Pavon MD LAB_1 Performing Organization Address City/State/ZIP Code Phon e Number HP CONVERSION Hemoglobin, Blood (09/01/2007 4:57 PM EXECUTIVE OFFICE MANAGER) athologist Signature Hemoglobin 14.4 11.8 - 15.5 HP CONVERSION gm/dL Specimen (Source) Anatomical Collection Method Collection Time Re ceived Time Location / / Volume Laterality 09/01/2007 4:57 PM EXECUTIVE OFFICE MANAGER Margot Pavon MD LAB_1 Performing Organization Address [facility] Code Phon e Number HP CONVERSION Pap Smear (09/01/2007 1:02 PM EXECUTIVE OFFICE MANAGER) [facility] gist Method Time Signature PAP Smear SEE TEXT No normal HP CONVERSION Liquid Based range Comment: Patient: YIMI GARCIA ? CERVICAL CYTOLOGY REPORT Pathology # ??[id number] ?Date Obtained: ? Date Received: CYTOLOGIC IMPRESSION: Negative for intraepithelial lesion or m alignancy. Verified 09/07/07 by: ??MB ? (electronic signature) ? BRODERICK TIONAL DATA LMP: CLINICAL HIST LIQUID BASED PAP CERVICAL SPECIMEN ADEQUACY: ?? Satisfactory. ENDOCERVICAL CELLS: ??Absent; patient is post-menopausal. Specimen (Source) Anatomical Collection Method Collection Time Re ceived Time Location / / Volume Laterality 09/01/2007 1:02 PM EXECUTIVE OFFICE MANAGER Margot Pavon MD LAB_1 Performing Organization Address City/State/ZIP Code Phon e Number HP CONVERSION documented in this encounter Visit Diagnoses Not on filedocumented in this encounter Care Teams Brine Room Laborer Relationship Specialty Start Date End Date Titus Medina MD PCP - General 09/16/1996 03/17/15 documented as of this encounter
--- OUTSIDE RECORDS SUMMARY | 2022-07-30 19:46 | XMS_ITS | Encounter Summary ---
:1945 Author [facility] Address [address] [place] [address] Care Team Providers Name Role Phone Titus Med[place] MD Primary Care Provider Reason for Visit Reason Comments Other Encounter Details Date Type Department Care Team Description 09/22/2007 Telephone [facility], Message Other [address] [place], [place] [address] Social History Tobacco Use Types Packs/Day Years Used Date Smoking Tobacco: Never Assessed Sex Assigned at Date Recorded Not on file documented as of this encounter Progress Notes Center, Message - 09/22/2007 4:00 PM CST Phone Note filed by Canatu at 01/21/11 2586 Author: Canatu Service: (none) Author Type: (none) Filed: 01/21/119 Note Time: 09/22/07 1600 Status: Signed Cutter Aluminum Sheet: Canatu Non -Symptom Message from Front Line Caller Name/Relationship:self Primary Special Procedures Nurse:Dr Pavon Message:pt had hip replacement surgery at [facility] on Sep 20, and tomorrow she will be discharged to [facility]. Could Dr Pavon follow her by phone with directions otherwise they will appoint someone. She prefers Dr Pavon, Loss Prevention Investigator: Best call back number:[phone] ,. 169 Is it OK to leave a confidential message on this voicemail?no *ECODE~PNMSG2 Created on 22Sep2007 4:00pm by ENID WILKINS On 22Sep2007 4:05pm RAMIN BARROS wrote: Please advise. On 22Sep2007 4:08pm ENID WILKINS wrote: Pt . called with a new phone number she can be reached at--[phone]. On 23Sep2007 11:44am JATINDER PAVON wrote: I think she'd do better to have the doctor there manage her temporarily, & I'll resume care when she leaves. Acknowledged by JATINDER PAVON on 11:44am On 23Sep2007 1:12pm RAMIN BARROS wrote: jail staff notified. RYCOOK documented in this encounter Plan of Treatment Not on filedocumented as of this encounter Visit Diagnoses Not on filedocumented in this encounter Care Teams Chancellor Relationship Specialty Start Date End Date Titus Medina MD PCP - General 09/16/1996 03/17/15 documented as of this encounter
--- OUTSIDE RECORDS SUMMARY | 2022-07-30 19:46 | XMS_ITS | Encounter Summary ---
:1945 Author Organization [facility] Address [address] [place] [address] Care Team Providers Name Role Phone Titus Medina MD Primary Care Provider Reason for Visit Reason Comments Other Encounter Details Date Type Department Care Team Description 08/16/2007 [facility] [address] [place] [address] Social History Tobacco Use Types Packs/Day Years Used Date Smoking Tobacco: Never Assessed Sex Assigned at Date Recorded Not on file documented as of this encounter Progress Notes Ramin Barros RN - 08/16/2007 1:49 PM CST Phone Note filed by Ramin Barros RN at 01/21/11820 Author: Ramin Barros RN Service: (none) Author Type: Registered Nurse Filed: 01/21/11820 Note Time: 08/16/071348 Status: Signed Security Investigator: Ramin Barros RN (Registered Nurse) Patient left a message on voice mail asking when she can take Tylenol as she became sick with Aleve. I called back and left a message that she can take Tylenol up 2 regular every 4 hours not to exceed 2000 mg daily. Created on 16Aug2007 1:49pm by RAMIN BARROS OMER SERVICER documented in this encounter Plan of Treatment Not on filedocumented as of this encounter Visit Diagnoses Not on filedocumented in this encounter Care Teams Frameman Relationship Specialty Start Date End Date Titus Medina MD PCP - General 09/16/1996 03/17/15 documented as of this encounter
--- OUTSIDE RECORDS SUMMARY | 2022-07-30 19:46 | XMS_ITS | Encounter Summary ---
:1945 Author Organization [facility] Address [address] [place] [address] Care Team Providers Name Role Phone Titus Medina MD Primary Care Provider Encounter Details Date Type Department Care Team Description 03/21/2007 Hospital Encounter LATTER-DAY CONVERSION Pascual Parker MD Social History Tobacco Use Types Packs/Day Years Used Date Smoking Tobacco: Never Assessed Sex Assigned at Date Recorded Not on file documented as of this encounter Medications at Time of Discharge Medication Sig Dispensed Refills Start Date End Date azelastine (AKA ASTELIN) Place 2 sprays into 90 3 03/30/2010 0.1 % nasal solution each nostril 2 times daily. LW Addl Instr:Indicated for: Rhinitis azelastine (AKA ASTELIN) Place 2 sprays into 120 0 03/30/2010 0.1 % nasal solution each nostril 2 times daily. LW Addl Instr:Indicated for: Rhinitis azelastine (AKA ASTELIN) Place 2 sprays into 3 03/30/2010 0.1 % nasal solution each nostril 2 times daily. LW Addl Instr:Indicated for: Rhinitis azelastine (AKA ASTELIN) Place 2 sprays into 34 3 03/30/2010 0.1 % nasal solution each nostril 2 times daily. LW Addl Instr:Indicated for: Rhinitis estradiol (AKA ESTRACE) LW Addl Instr:Insert 42.5 3 10/03/2007 0.1 MG/GM vaginal cream 1 gm vaginally 1-3 times per week. estradiol (AKA ESTRACE) LW Addl Instr:Insert 42.5 3 10/03/2007 0.1 MG/GM vaginal cream 1 gm vaginally 1-3 times per week. GUAIFENESIN OR Take 1 tablet by 180 3 08/03/2006/ mouth every 12 hours as needed. hydrocortisone-pramoxine LW Comment:use as 10 0 10/0 02/200603/30/2010 (AKA PROCTOFOAM-HC) 1-1 needed % rectal foam hydrocortisone-pramoxine LW Comment:use as 0 /2 12/200503/30/2010 (AKA PROCTOFOAM-HC) 1-1 needed % rectal foam hydrocortisone-pramoxine LW Comment:use as 10 0 /2 02/200503/30/2010 (AKA PROCTOFOAM-HC) 1-1 needed % rectal foam hydrOXYzine HCl (AKA Take 1 tablet by 90 0 07/08/200 6 03/30/2010 ATARAX) 25 MG tablet mouth every 6 hours as needed. hydrOXYzine HCl (AKA Take 1 tablet by 0 6 03/30/2010 ATARAX) 25 MG tablet mouth every 6 hours as needed. hydrOXYzine HCl (AKA Take 1 tablet by 30 0 07/02/200 5 03/30/2010 ATARAX) 25 MG tablet mouth every 6 hours as needed. hydrOXYzine HCl (AKA Take 1 tablet by 0 06/16/200 5 03/30/2010 ATARAX) 25 MG tablet mouth every 6 hours as needed. UNKNOWN MEDICATION Indications: PN: 0 02/24/2007 10/08/2008 UNKNOWN MEDICATION Indications: PN: 0 09/19/2006 10/08/2008 UNKNOWN MEDICATION Indications: PN: 0 08/09/2006 10/08/2008 UNKNOWN MEDICATION Indications: PN: 0 07/08/2006 10/08/2008 UNKNOWN MEDICATION Indications: PN: 0 04/15/2006 10/08/2008 UNKNOWN MEDICATION Indications: PN: 0 02/23/2006 10/08/2008 UNKNOWN MEDICATION Indications: PN: 0 03/27/2005 10/08/2008 UNKNOWN MEDICATION Indications: PN: 0 04/29/2004 10/08/2008 documented as of this encounter Plan of Treatment Not on filedocumented as of this encounter Visit Diagnoses Not on filedocumented in this encounter Care Teams Primary Clinician Relationship Specialty Start Date End Date Titus Medina MD PCP - General 09/16/1996 03/17/15 documented as of this encounter
--- OUTSIDE RECORDS SUMMARY | 2022-07-30 19:46 | XMS_ITS | Encounter Summary ---
:1945 Author Organization [facility] Address [address] [place] [address] Care Team Providers Name Role Phone Titus Medina MD Primary Care Provider Reason for Visit Reason Comments Other Encounter Details Date Type Department Care Team Description 09/30/[address] [place] Ramon Rucker MD Other [address] [place] [address] [place], [place] [id number] (Wo rk) Social History Tobacco Use Types Packs/Day Years Used Date Smoking Tobacco: Never Assessed Sex Assigned at Date Recorded Not on file documented as of this encounter Progress [facility], Message - 09/30/2007 4:45 PM CST Phone Note filed by Payward at 01/21/11 112 Author: Payward Service: (none) Author Type: (none) Filed: 01/21/111121 Note Time: 09/30/07 1645 Status: Signed Banner Painter: Payward Non -Symptom Message from Front Line Caller Name/Relationship:self Primary Custodial Supervisor:Dr Pavon Message:Please call Drs. albrecht at [facility] and give them pt's prescriptions. Prescriptions are Estradiol o.01 per cent cream, Pramoxine 1 per cent hydrocortisone 1 per cent foam, Hydroxyzine HCL 25 mg tablets 350 quantity. Could you authorize 3 months at once for financial reasons. Physicians Line is [phone]. President & Ceo: Best call back number:[phone] patient Is it OK to leave a confidential message on this voicemail?yes *ECODE~[id number] Created on 30Sep2007 4:45pm by ENID WILKINS On 03Oct2007 1:57pm KENNEDY BRITO wrote: Please fax to [employer] [phone] On 03Oct2007 2:12pm RAMON SMART wrote: faxed Acknowledged by RAMON SMART on 2:12pm RAM EVALUATOR documented in this encounter Plan of Treatment Not on filedocumented as of this encounter Visit Diagnoses Not on filedocumented in this encounter Care Teams Pocketed Spring Machine Operator Relationship Specialty Start Date End Date Titus Medina MD PCP - General 09/16/1996 03/17/15 documented as of this encounter
--- OUTSIDE RECORDS SUMMARY | 2022-07-30 19:46 | XMS_ITS | Encounter Summary ---
:1945 Author Organization [facility] Address [address] [place] [address] Care Team Providers Name Role Phone Titus Medina MD Primary Care Provider Encounter Details Date Type Department Care Team Description 11/21/2007 Procedure Visit CONV [id number] Mery Renner MD [address] [place] [address] [place] [address] (Wo rk) Social History Tobacco Use Types Packs/Day Years Used Date Smoking Tobacco: Never Assessed Sex Assigned at Date Recorded Not on file documented as of this encounter Progress Notes Mery Weber MD - 11/21/2007 12:01 AM CST Progress Notes signed by Mery Weber MD at 11/22/07 0822 Author: Mery Weber MD Service: (none) Author Type: Physician Filed: 01/24/11 0102 Note Time: 11/21/07 0001 Status: Signed School Fundraising Director: Mery Weber MD (Physician) NAME: YIMI GARCIA MR#: [id number] ACCT: [id number] VISIT: [id number] DICTATING CLINICIAN: MERY WEBER MD JOB: [id number] LOC: 458 CLINIC PROGRESS NOTE DATE OF VISIT: 11/21/2007 SUBJECTIVE: Yimi is here for her first V-beam. Prior to proceeding, we again discussed her skin. She relates a chemical peel that she had done is not 1984. Since then, she feels like her skin has developed the redness. She also has some complains of some redness and some pigmentation changes of her neck. She also questions some dark circles under her eyes. Of note: Her Valtrex acyclovir prescription, which she thought she had on our last visit is no longer current, and she needs a new prescription. This was given to her today. We discontinued the pros, cons, the limitations, erythema, purpura. She would like to have her chin, cheeks, paranasal areas treated. OBJECTIVE: Chin, nose were treated, 7 mm, 6 msec, 8 joules, 84 pulses, spray delay 30/20, adequate subpurpuretic response; 7 mm, 6 msec, 7.5 joules, gave adequate subpurpuretic response on her cheeks, 112 pulses, spray delay 30/20. Greater than 15 vessels were treated. ASSESSMENT: PLAN: She will follow up in 6 to 8 weeks for second V-beam. In between then, she will see Elda for light chemical peels of her face and neck. Was also given the Red Relief moisturizer from ??[employer]??. GABRIELLE:[id number] C: 11/22/07 08:17 DOCUMENT: [id number] LL SAW OPERATOR documented in this encounter Plan of Treatment Not on filedocumented as of this encounter Visit Diagnoses Not on filedocumented in this encounter Care Teams Career And Guidance Counselor Relationship Specialty Start Date End Date Titus Medina MD PCP - General 09/16/1996 03/17/15 documented as of this encounter
--- OUTSIDE RECORDS SUMMARY | 2022-07-30 19:46 | XMS_ITS | Encounter Summary ---
:1945 Author Organization [facility] Address [address] [place] [address] Care Team Providers Name Role Phone Titus Medina MD Primary Care Provider Encounter Details Date Type Department Care Team Description 10/31/2007 Correspondence Emergency Dept Emergency, [facility] D/C PATIENT [address] [facility] [place] [address] Social History Tobacco Use Types Packs/Day Years Used Date Smoking Tobacco: Never Assessed Sex Assigned at Date Recorded Not on file documented as of this encounter Progress Notes Emergency, Provider - 10/31/2007 12:00 AM DEADENER documented in this encounter Plan of Treatment Not on filedocumented as of this encounter Visit Diagnoses Not on filedocumented in this encounter Care Teams Reconciliation Analyst Relationship Specialty Start Date End Date Titus Medina MD PCP - General 09/16/1996 03/17/15 documented as of this encounter
--- OUTSIDE RECORDS SUMMARY | 2022-07-30 19:46 | XMS_ITS | Encounter Summary ---
:1945 Author Organization [facility] Address [address] [place] [address] Care Team Providers Name Role Phone Titus Medina MD Primary Care Provider Encounter Details Date Type Department Care Team Description 05/30/2007 Office Visit CONV P3900 Mery Renner MD [address] [place] [address] [place] [address] (Wo rk) Social History Tobacco Use Types Packs/Day Years Used Date Smoking Tobacco: Never Assessed Sex Assigned at Date Recorded Not on file documented as of this encounter Progress Notes Mery Weber MD - 05/30/2007 12:01 AM CDT Progress Notes signed by Mery Weber MD at 05/31/07 1147 Author: Mery Weber MD Service: (none) Author Type: Physician Filed: 01/23/112121 Note Time: 05/30/07 0001 Status: Signed Rehab Tech: Mery Weber MD (Physician) NAME: YIMI GARCIA MR#: [id number] ACCT: [id number] VISIT: [id number] DICTATING CLINICIAN: MERY WEBER MD JOB: [id number] LOC: 458 CLINIC PROGRESS NOTE DATE OF VISIT: 05/30/2007 SUBJECTIVE: Yimi is here to discuss two things, one is creepiness of her facial skin. Dr. Reyes had recommended her for a Pixel, and that is the main reason she is here. She also has some telangiectasias of her cheeks and chin, creating some redness to her skin she would like to have addressed. 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 Would like to do what she can to minimize the aging changes with as little down time as possible. 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 Even gets them in her nose. Takes Valtrex for them. OBJECTIVE: On exam, she does have unevenness of her facial skin and creepiness is diffuse. Even crosses the mandibular border. She has telangiectasias of her chin and her cheeks creating some redness. ASSESSMENT: Facial aging. PLAN: She and I discussed the options. I do think potentially two sessions with the V-beam would improve the redness and the utkwqicm-twctt-qoazul appearance of her skin. We discussed the purpura and the need for potentially a third procedure, as well as strict sun avoidance. We discussed the Pixel and the amount of improvement, three sessions, with both lasers she would need to take an antiviral medication. We discussed the amount of improvement, the risk of infection, bleeding, poor scar formation, pigmentation irregularities, and the need for more aggressive treatment. She wishes to proceed. Understands the limitations. Make arrangements with Elda. Was given a prescription for acyclovir. GABRIELLE:[id number] C: 05/31/07 09:48 DOCUMENT: [id number] documented in this encounter Plan of Treatment Not on filedocumented as of this encounter Visit Diagnoses Not on filedocumented in this encounter Care Teams Analytics Senior Manager Relationship Specialty Start Date End Date Titus Medina MD PCP - General 09/16/1996 03/17/15 documented as of this encounter
--- OUTSIDE RECORDS SUMMARY | 2022-07-30 19:46 | XMS_ITS | Encounter Summary ---
:1945 Author Organization [employer] Address [address] [place] [address] Care Team Providers Name Role Phone Titus Medina MD Primary Care Provider Encounter Details Date Type Department Care Team Description 04/18/2007 PN Conversion Only [facility] [address] [place], [place] [address] Social History Tobacco Use Types Packs/Day Years Used Date Smoking Tobacco: Never Assessed Sex Assigned at Date Recorded Not on file documented as of this encounter Plan of Treatment Not on filedocumented as of this encounter Procedures Procedure Name Priority Date/Time Associated Diagnosis Comme nts MM MAMMOGRAM Routine 04/18/2007 11:58 AM Results for this SCREENING W CAD CDT procedure ar e in the results section. documented in this encounter Results MM Mammogram Screening W CAD (04/18/2007 11:58 AM CDT) Anatomical Region Laterality Modality Breast Bilateral Mammography Specimen (Source) Anatomical Location Collection Method / Collectio n Time Received Time / Laterality Volume Impressions 04/21/2007 11:41 AM CDT : BILATERAL BREASTS - Category 1 Negative, no evidence of malignancy. Nor mal interval follow-up is recommended in 12 months. OVERALL ASSESSMENT - NEGATIVE END OF IMPRESSION Dictating DIO GUTIÉRREZ RADIOLOGIST Narrative 04/21/2007 11:41 AM CDT Comparison is made to films from 04/16/2005 (bilateral) and films from 04/16/2006 (bilateral). ??There is no significant interval change. Bilateral Breast Findings: There are scattered fibroglandular densi ties. ??No significant masses, calcifications or other abnormalities ar e seen. Procedure Note Dio Licona - 12/05/2016 Comparison is made to films from 005 (bilateral) and films from 04/16/2006 (bilateral). There is no significant interval change. Bilateral Breast Findings: There are scattered fibroglandular densi ties. No significant masses, calcifications or other abnormalities ar e seen. IMPRESSION : BILATERAL BREASTS - Category 1 Negative, no evidence of malignancy. Nor mal interval follow-up is recommended in 12 months. OVERALL ASSESSMENT - NEGATIVE END OF IMPRESSION Dictating DIO GUTIÉRREZ RADIOLOGIST Margot Pavon MD RAD VESNA documented in this encounter Visit Diagnoses Not on filedocumented in this encounter Care Teams Liability Claims Representative Relationship Specialty Start Date End Date Titus Medina MD PCP - General 09/16/1996 03/17/15 documented as of this encounter
--- OUTSIDE RECORDS SUMMARY | 2022-07-30 19:46 | XMS_ITS | Encounter Summary ---
:1945 Author Organization [facility] Address [address] [place] [address] Care Team Providers Name Role Phone Titus Medina MD Primary Care Provider Encounter Details Date Type Department Care Team Description 05/30/2007 PN Conversion Only TRAIN CONTROLLER [address] [place] [address] Social History Tobacco Use Types Packs/Day Years Used Date Smoking Tobacco: Never Assessed Sex Assigned at Date Recorded Not on file documented as of this encounter Plan of Treatment Not on filedocumented as of this encounter Visit Diagnoses Not on filedocumented in this encounter Care Teams Glost Kiln Operator Relationship Specialty Start Date End Date Titus Medina MD PCP - General 09/16/1996 03/17/15 documented as of this encounter
--- OUTSIDE RECORDS SUMMARY | 2022-07-30 19:46 | XMS_ITS | Encounter Summary ---
:1945 Author Organization [facility] Address [address] [place] [address] Care Team Providers Name Role Phone Titus Medina MD Primary Care Provider Encounter Details Date Type Department Care Team Description 10/31/2007 Emergency Room Emergency Dept Emergency, [facility] ED Procedural [address] [facility] Provider [place] [address] Social History Tobacco Use Types Packs/Day Years Used Date Smoking Tobacco: Never Assessed Sex Assigned at Date Recorded Not on file documented as of this encounter Progress Notes Emergency, Provider - 10/31/2007 12:00 AM FLIGHT ENGINEER MANAGER documented in this encounter Plan of Treatment Not on filedocumented as of this encounter Visit Diagnoses Not on filedocumented in this encounter Care Teams Spiritual Counselor Relationship Specialty Start Date End Date Titus Medina MD PCP - General 09/16/1996 03/17/15 documented as of this encounter
--- OUTSIDE RECORDS SUMMARY | 2022-07-30 19:46 | XMS_ITS | Encounter Summary ---
:1945 Author Organization [facility] Address [address] [place] [address] Care Team Providers Name Role Phone Titus Medina MD Primary Care Provider Encounter Details Date Type Department Care Team Description 01/31/2008 Office Visit [facility], [facility] PT [address] [facility] [place], [place] [address] [address] [place] [address] [phone] (Wo rk) Social History Tobacco Use Types Packs/Day Years Used Date Smoking Tobacco: Never Assessed Sex Assigned at Date Recorded Not on file documented as of this encounter Plan of Treatment Not on filedocumented as of this encounter Visit Diagnoses Not on filedocumented in this encounter Care Teams Mirror Maker Relationship Specialty Start Date End Date Titus Medina MD PCP - General 09/16/1996 03/17/15 documented as of this encounter
--- OUTSIDE RECORDS SUMMARY | 2022-07-30 19:46 | XMS_ITS | Encounter Summary ---
:1945 Author Organization [facility] Address [address], [place] [address] Care Team Providers Name Role Phone Titus Medina MD Primary Care Provider Encounter Details Date Type Department Care Team Description 10/31/2007 Scanned History External to External, [place] [address] Social History Tobacco Use Types Packs/Day Years Used Date Smoking Tobacco: Never Assessed Sex Assigned at Date Recorded Not on file documented as of this encounter Progress Notes External, Provider - 10/31/2007 12:00 AM WIRE COILER MACHINE OPERATOR documented in this encounter Plan of Treatment Not on filedocumented as of this encounter Visit Diagnoses Not on filedocumented in this encounter Care Teams Progress Man Relationship Specialty Start Date End Date Titus Medina MD PCP - General 09/16/1996 03/17/15 documented as of this encounter
--- OUTSIDE RECORDS SUMMARY | 2022-07-30 19:46 | XMS_ITS | Encounter Summary ---
:1945 Author Organization [facility] Address [address] [place] [address] Care Team Providers Name Role Phone Titus Medina MD Primary Care Provider Encounter Details Date Type Department Care Team Description 11/28/2007 Office Visit [facility] Yovani Delarosa MD [address] [place], [place] [address] Social History Tobacco Use Types Packs/Day Years Used Date Smoking Tobacco: Never Assessed Sex Assigned at Date Recorded Not on file documented as of this encounter Progress Notes Yovani Delarosa MD - 11/28/2007 12:01 AM CST Progress Notes signed by Yovani Delarosa MD at 01/01/08 1403 Author: Yovani Delarosa MD Service: (none) Author Type: Physician Filed: 01/24/11 0113 Note Time: 11/28/07 0001 Status: Signed Mechanical Reliability Engineer: Yovani Delarosa MD (Physician) NAME: YIMI GARCIA MR#: [id number] ACCT: [id number] VISIT: [id number] DICTATING CLINICIAN: YOVANI DELAROSA MD JOB: [id number] LOC: 3711 CLINIC PROGRESS NOTE DATE OF VISIT: 11/28/2007 SUBJECTIVE: : 1945. CHIEF COMPLAINT: Right hip pain and bilateral great toe pain. HISTORY OF PRESENT ILLNESS: This 62-year-old woman was originally seen by me with right hip pain in 02/2007, a year and three-quarters ago. She was referred to an orthopedic surgeon for discussion of hip replacement surgery. She was originally sent to the radiology department for a fluoroscopically guided steroid and lidocaine injection in the hip. She did find herself a surgeon that did do a hip replacement. She had hip replacement surgery by Dr. Rivera with [facility]. This was done in [place]. She had the hip replacement surgery on 09/20/07, 2 months ago. Six weeks later, on 10/31/07 she dislocated the hip. She was sitting on the side of a bathtub, internally rotated to shave the back of her leg, and her hip popped out of joint. She was seen at [facility] and reduced. She was given an abduction pillow to sleep with. She is still quite concerned that she may re-dislocate, and she wishes another consultation by me on whether the hip replacement that was done is adequate and whether it needs to be revised. The patient is also noticing that when she wears ROCÍO socks on her legs, there is pressure on her big toes causing pain in her IP joints of both big toes. OBJECTIVE: This pleasant 62-year-old woman does have some antalgic gait but not too bad. She has a well-healed wound in the right hip. She has no notable hyperabduction or internal rotation when seated. She is able to extend her knee without difficulty. She can flex her hip up to 90 degrees without difficulty. She can abduct without pain. There is no sense of apprehension when she does so. Examination of both her great toes reveals tenderness in the IP joint without swelling or deformities. X-rays were ordered and interpreted of her pelvis and right lateral hip today. AP pelvis with right lateral hip. 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 The acetabular implant appears a bit superficial and may not be medialized completely. There is no sign of loosening of components either in the shaft of the femur or in the pelvis. The positioning of the acetabular cup appears reasonable. ASSESSMENT: 1. Two months status post right total hip arthroplasty and subsequent recent dislocation. 2. 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 PLAN: I have recommended more physical therapy for more abduction strengthening. I have recommended avoidance of any adduction, especially past midline, or flexion past 90 degrees of the right hip. I discussed at length with the patient how this will accentuate forces that will externalize her femoral head and cause dislocation. I also recommended ibuprofen or Advil for her great toe pain and said that I would give her an injection of cortisone in those joints if the pain gets worse. I recommended she cut the great toe out of her ROCÍO socks if they bother her. JLL:[id number] C: 11/29/07 16:41 DOCUMENT: [id number] documented in this encounter Plan of Treatment Not on filedocumented as of this encounter Procedures Procedure Name Priority Date/Time Associated Diagnosis Comme nts XR PELVIS W RT Routine 11/28/2007 4:58 PM Results for this LATERAL HIP BUILDING INSULATION INSTALLER procedure are i n the results section. documented in this encounter Results XR Pelvis W Rt Lateral Hip (11/28/2007 4:58 PM BUILDING INSULATION INSTALLER) Anatomical Region Laterality Modality Pelvis, Hip Other Specimen (Source) Anatomical Location Collection Method / Collectio n Time Received Time / Laterality Volume Narrative 11/28/2007 4:58 PM BUILDING INSULATION INSTALLER AP PELVIS WITH RIGHT LATERAL HIP: INDICATION: ??Recent hip replacement tiffanie delano with dislocation of prosthetic hip. The acetabular implant appears a bit sup erficial and may not be medialized completely. There is no sign of loosening of components either in the shaft of the femur or in t he pelvis. The positioning of the acetabular cup appears reasonable. Dictating YOVANI CHAVEZ MD Procedure Note Yovani Delarosa - 12/05/2016 AP PELVIS WITH RIGHT LATERAL HIP: INDICATION: Recent hip replacement surge ry with dislocation of prosthetic hip. The acetabular implant appears a bit sup erficial and may not be medialized completely. There is no sign of loosening of components either in the shaft of the femur or in t he pelvis. The positioning of the acetabular cup appears reasonable. Dictating YOVANI CHAVEZ MD Yovani Delarosa MD RAD GD documented in this encounter Visit Diagnoses Not on filedocumented in this encounter Care Teams Student Records Coordinator Relationship Specialty Start Date End Date Titus Medina MD PCP - General 09/16/1996 03/17/15 documented as of this encounter
--- OUTSIDE RECORDS SUMMARY | 2022-07-30 19:46 | XMS_ITS | Encounter Summary ---
:1945 Author Organization [facility] Address [address] [place] [address] Care Team Providers Name Role Phone Titus Medina MD Primary Care Provider Encounter Details Date Type Department Care Team Description 04/29/2007 Office Visit [facility] Son Malloy MD [address] [facility] [address] [place], [place] [address] [place] [address] (Wo rk) Social History Tobacco Use Types Packs/Day Years Used Date Smoking Tobacco: Never Assessed Sex Assigned at Date Recorded Not on file documented as of this encounter Progress Notes Son Malloy MD - 04/29/2007 12:01 AM CDT Progress Notes signed by Son Malloy MD at 04/30/07 1252 Author: Son Malloy MD Service: (none) Author Type: Physician Filed: 01/23/112045 Note Time: 04/29/07 0001 Status: Signed Title Clerk: Son Malloy MD (Physician) NAME: YIMI GARCIA MR#: [id number] ACCT: [id number] VISIT: [id number] DICTATING CLINICIAN: SON MALLOY MD JOB: [id number] LOC: 311 CLINIC PROGRESS NOTE DATE OF VISIT: 04/29/2007 SUBJECTIVE: Yimi is in today for followup of bilateral trochanteric bursitis. I saw her several years ago and she did well following an injection. Subsequent to that she has seen Dr. Parker for hip pain and x-rays demonstrated fairly significant degenerative changes of her right hip. She had a fluoroscopically guided injection in her hip. She said it was of some help. Her main complete is deep burrowing pain both anteriorly and posteriorly on her right side. She is scheduled to go to [facility] in a few weeks and she said that her trochanteric bursitis had been bothering her and she was hoping for injections on this. OBJECTIVE: On exam her left hip range of motion is full and pain free. On the right she has significant limitation of internal rotation. She has fairly normal external rotation. Adequate hip flexor strength. She is tender over both trochanteric regions. I reviewed her films from February and these show near complete obliteration of the joint space with cystic changes of the femoral head and inferior osteophytes. The left hip shows mildly dysplastic acetabulum., ASSESSMENT: 1. Trochanteric bursitis, bilateral. 2. Degenerative joint disease and hip dysplasia, right hip. 3. Mild hip dysplasia, left hip. PLAN: I injected each trochanteric region with a mixture of lidocaine and Depo-Medrol. With respect to her hip we talked about total hip arthroplasty. She is 61 years old and fairly active. She is getting by fairly well at this point and so we are going to hold off and see her back in October. I asked her to keep track of how her symptoms progress during this time. PRD:[id number] C: 04/30/07 10:28 DOCUMENT: [id number] documented in this encounter Plan of Treatment Not on filedocumented as of this encounter Visit Diagnoses Not on filedocumented in this encounter Care Teams Decorative Cutting Machine Tender Relationship Specialty Start Date End Date Titus Medina MD PCP - General 09/16/1996 03/17/15 documented as of this encounter
--- OUTSIDE RECORDS SUMMARY | 2022-07-30 19:46 | XMS_ITS | Encounter Summary ---
:1945 Author Organization [facility] [employer] Address [address] [place] [address] Care Team Providers Name Role Phone Titus Medina MD Primary Care Provider Encounter Details Date Type Department Care Team Description 03/23/[address] [facility] Nando Holt MD [address] [place] [address] 930306 [phone] Social History Tobacco Use Types Packs/Day Years Used Date Smoking Tobacco: Never Assessed Sex Assigned at Date Recorded Not on file documented as of this encounter Last Filed Vital Signs Vital Sign Reading Time Taken Comments Blood Pressure 134/70 03/23/2007 11:32 AM CDT Pulse 76 03/23/2007 11:32 AM CDT Temperature - - Respiratory Rate - - Oxygen Saturation - - Inhaled Oxygen Concentration - - Weight 79.8 kg (175 lb 15.9 oz) 03/23/2007 11:32 AM C: 79.8kg CDT Height 168.9 cm (5' 6.5) 03/23/2007 11:32 AM C: 168.9c m CDT Body Mass Index 27.98 03/23/2007 11:32 AM CDT documented in this encounter Plan of Treatment Not on filedocumented as of this encounter Visit Diagnoses Not on filedocumented in this encounter Care Teams Adult Education Manager Relationship Specialty Start Date End Date Titus Medina MD PCP - General 09/16/1996 03/17/15 documented as of this encounter
--- OUTSIDE RECORDS SUMMARY | 2022-07-30 19:46 | XMS_ITS | Encounter Summary ---
:1945 Author Organization [facility] Address [address] [place] [address] Care Team Providers Name Role Phone Titus Medina MD Primary Care Provider Encounter Details Date Type Department Care Team Description 09/01/2007 Office Visit [facility] Jatinder Hi MD [address] [place] [address] [id number] [phone] Social History Tobacco Use Types Packs/Day Years Used Date Smoking Tobacco: Never Assessed Sex Assigned at Date Recorded Not on file documented as of this encounter Progress Notes Jatinder Pavon MD - 09/01/2007 12:01 AM CST Progress Notes signed by Jatinder Pavon MD at 09/29/07 1041 Author: Jatinder Pavon MD Service: (none) Author Type: Physician Filed: 01/23/11 2322 Note Time: 09/01/07 0001 Status: Signed Volunteer Services Manager: Jatinder Pavon MD (Physician) NAME: YIMI GARCIA MR#: [id number] ACCT: [id number] VISIT: [id number] DICTATING CLINICIAN: JATINDER PAVON MD JOB: [id number] LOC: 2602 CLINIC PROGRESS NOTE DATE OF VISIT: 09/01/2007 SUBJECTIVE: Chief complaint: Physical. Pvsek-qef-xoap-old female here for routine physical. She also is going to be having a minimally invasive hip replacement surgery on 09/[address] Rivera at [facility] and then a preoperative H+P is done at this visit also which is faxed and scanned into the chart. Other than her hip arthritis she has no acute concerns. PAST MEDICAL HISTORY: Significant for low back pain, some hearing loss. She is menopausal and is noting that she has some essential tremor developing. 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 Lives alone. FAMILY HISTORY: Significant for osteoporosis in her mother who is in her 90's and still living independently. Patient's health habits are good. She does not smoke or use alcohol. Has minimal caffeine. Getting daily exercise. A PHQ-9 screen for depression is normal at 1. COMPLETE REVIEW OF SYSTEMS: Negative except for some occasional bladder control issues. See adult review of systems checklist in SDoc this date. OBJECTIVE: V: BP: 134/76. P: 76. Ht: 67. Wt: 176. GENERAL: Healthy appearing female no acute distress. Sclerae conjunctivae benign. TMs EACs normal. Pharynx benign. NECK: Supple. No adenopathy or thyromegaly. LUNGS: Clear. HEART: Regular rate, S1 S2. No murmurs, rubs, gallops. BREASTS: No masses, discharge, axillary adenopathy. ABDOMEN: Nontender. No HSM, masses, guarding, or rebound. PELVIC: Normal external female genitalia, perineum, urethra, and vagina. Cervix appears normal. Pap smear is done. Uterus midline normal size. Adnexae benign. RECTAL: Confirms no masses. EXTREMITIES: No edema. SKIN: No visible or palpable suspicious lesions. ORTHOPEDIC: Benign except for some decreased range of motion of the hip. NEUROLOGIC: She has typical low velocity benign essential tremor. EKG is done today and is normal. Hemoglobin is normal. ASSESSMENT: 1. Health maintenance. 2. DJD of the hip. 3. Benign tremor. PLAN: Trial of propranolol 20 mg p.r.n. Okayed for her surgery. No indictions for full beta-blockade and she will be on the propranolol for the tremor. Further labs pending. She is up to date on colonoscopy and other health screenings. She will follow up with p.rmiah BARBOSA:[id number] C: 09/28/07 14:36 DOCUMENT: [id number] AGE COMPILATION CLERK documented in this encounter Plan of Treatment Not on filedocumented as of this encounter Visit Diagnoses Not on filedocumented in this encounter Care Teams Guest Relations Executive Relationship Specialty Start Date End Date Titus Medina MD PCP - General 09/16/1996 03/17/15 documented as of this encounter
--- OUTSIDE RECORDS SUMMARY | 2022-07-30 19:46 | XMS_ITS | Encounter Summary ---
:1945 Author Organization [facility] Address [address] [place] [address] Care Team Providers Name Role Phone Titus Medina MD Primary Care Provider Encounter Details Date Type Department Care Team Description 11/21/2007 PN Conversion Only [facility] [address] [place] [address] Social History Tobacco Use Types Packs/Day Years Used Date Smoking Tobacco: Never Assessed Sex Assigned at Date Recorded Not on file documented as of this encounter Plan of Treatment Not on filedocumented as of this encounter Visit Diagnoses Not on filedocumented in this encounter Care Teams Information Security Risk Analyst Relationship Specialty Start Date End Date Titus Medina MD PCP - General 09/16/1996 03/17/15 documented as of this encounter
--- OUTSIDE RECORDS SUMMARY | 2022-07-30 19:46 | XMS_ITS | Encounter Summary ---
:1945 Author Organization [email or web address] Address [address], [place] [address] Care Team Providers Name Role Phone Titus Medina MD Primary Care Provider Reason for Visit Reason Comments Other Encounter Details Date Type Department Care Team Description 09/28/2007 Telephone [facility] Sendy Conti Other [address] , [address] [place], [place] [address] Social History Tobacco Use Types Packs/Day Years Used Date Smoking Tobacco: Never Assessed Sex Assigned at Date Recorded Not on file documented as of this encounter Progress Notes Center, Message - 09/28/2007 10:00 AM CST Phone Note filed by Spiracur at 01/21/11 1351 Author: Spiracur Service: (none) Author Type: (none) Filed: 01/21/11 1109 Note Time: 09/28/07 1000 Status: Signed Verification Clerk: Spiracur Medication Issue/Refill Caller Name/Relationship:self Primary Manager Community Development:Dr Pavon Comment/Symptom:pt would like refills, states that she saw Dr Pavon on [address] Pavon wrote them to be forwarded to [facility] mails service at that time but they are not yet at [facility] Pharmacy Name & Phone #:[facility] open [address] City: Drug Name: 1). Estradiol 0.1 cream 2). Hydroxyzine HCL 25 mg tablets 1 tablet every 6 hours as needed 3). Pramoxine 1 percent--Hydrocortisone 1 per cent, foam. Strength: Dose/Route/Freq: Proposition Player: Best call back number:[phone] Is it OK to leave a confidential message on this voicemail? Created on 28Sep2007 10:00am by ENID WILKINS On 28Sep2007 10:32am SENDY MIRAMONTES wrote: patient needs refills of estradiol, hydroxyzine, pramoxine. please print and will mail to patient. please provide a 3 month supply as patient uses mail order pharmacy. On 28Sep2007 1:35pm JATINDER PAVON wrote: Printed Acknowledged by JATINDER PAVON on 1:35pm On 28Sep2007 2:48pm SENDY MIRAMONTES wrote: mailed to patient [employer]APH documented in this encounter Plan of Treatment Not on filedocumented as of this encounter Visit Diagnoses Not on filedocumented in this encounter Care Teams Db2 Developer Relationship Specialty Start Date End Date Titus Medina MD PCP - General 09/16/1996 03/17/15 documented as of this encounter
--- OUTSIDE RECORDS SUMMARY | 2022-07-30 19:46 | XMS_ITS | Encounter Summary ---
:1945 Author Organization [facility] Address [address] [place] [address] Care Team Providers Name Role Phone Titus Medina MD Primary Care Provider Encounter Details Date Type Department Care Team Description 11/02/2007 Office Visit [facility] Jatinder Hi MD [address] [place] [id number] [phone] Social History Tobacco Use Types Packs/Day Years Used Date Smoking Tobacco: Never Assessed Sex Assigned at Date Recorded Not on file documented as of this encounter Last Filed Vital Signs Vital Sign Reading Time Taken Comments Blood Pressure 128/70 11/02/2007 10:09 AM BRUSHER OPERATOR Pulse 80 11/02/2007 10:09 AM BRUSHER OPERATOR Temperature - - Respiratory Rate - - Oxygen Saturation - - Inhaled Oxygen Concentration - - Weight 78.5 kg (172 lb 15.9 oz) 11/02/2007 10:09 AM C: 78.5kg BRUSHER OPERATOR Height - - Body Mass Index 27.5 09/01/2007 4:18 PM BRUSHER OPERATOR documented in this encounter Progress Notes Jatinder Pavon MD - 11/02/2007 12:01 AM CST Progress Notes signed by Jatinder Pavon MD at 12/07/07 0829 Author: Jatinder Pavon MD Service: (none) Author Type: Physician Filed: 01/24/11 0038 Note Time: 11/02/07 0001 Status: Signed Fire Engine Pump Operator: Jatinder Pavon MD (Physician) NAME: YIMI GARCIA MR#: [id number] ACCT: [id number] VISIT: [id number] DICTATING CLINICIAN: JATINDER PAVON MD JOB: [id number] LOC: 2602 CLINIC PROGRESS NOTE DATE OF VISIT: 11/02/2007 SUBJECTIVE: CHIEF COMPLAINT: Hospital followup. SUBJECTIVE: A 62-year-old female had hip replacement and initially had done very well with it. Went home from rehab promptly. However, she dislocated her hip October 31, just reaching over to put on socks. Was seen in the emergency room at [facility] and the hip was easily relocated. She will be seeing her orthopedics doctor tomorrow. She would like a refill on her hydromorphone since she is still having significant pain with it, but is able to walk on it without difficulty. Secondly, she has noticed that she has had some left labial itching, and just wanted to make sure there was not anything there she could not see. OBJECTIVE: VS: BP: 128/70. P: 80. Wt: 173. GENERAL: Healthy appearing female in no acute distress. Walking with support. Did not put hip through range of motion. LABIA: Exam shows minimal dry appearing skin but no lesion, no vaginal discharge, consistent with atrophic changes. ASSESSMENT: 1. Hip dislocation, status post hip replacement surgery. 2. Labial itching. PLAN: Xlya-vti-iafhwuy hydrocortisone for the labial itching and follow up if persists. Refill her hydromorphone and follow up with Orthopedic as scheduled. W:[id number] C: 11/28/07 10:33 DOCUMENT: [id number] HER OPERATOR documented in this encounter Plan of Treatment Not on filedocumented as of this encounter Visit Diagnoses Not on filedocumented in this encounter Care Teams Customer Development Representative Relationship Specialty Start Date End Date Titus Medina MD PCP - General 09/16/1996 03/17/15 documented as of this encounter
--- OUTSIDE RECORDS SUMMARY | 2022-07-30 19:46 | XMS_ITS | Encounter Summary ---
:1945 Author Organization [facility] Address [address] [place] [address] Care Team Providers Name Role Phone Titus Medina MD Primary Care Provider Encounter Details Date Type Department Care Team Description 03/08/2007 PN Conversion Only [facility] [address] [place], [place] [address] Social History Tobacco Use Types Packs/Day Years Used Date Smoking Tobacco: Never Assessed Sex Assigned at Date Recorded Not on file documented as of this encounter Plan of Treatment Not on filedocumented as of this encounter Visit Diagnoses Not on filedocumented in this encounter Care Teams Commissary Assistant Relationship Specialty Start Date End Date Titus Medina MD PCP - General 09/16/1996 03/17/15 documented as of this encounter
--- OUTSIDE RECORDS SUMMARY | 2022-07-30 19:46 | XMS_ITS | Encounter Summary ---
:1945 Author Organization [facility] Address [address] [place] [address] Care Team Providers Name Role Phone Titus Medina MD Primary Care Provider Reason for Visit Reason Comments Other Encounter Details Date Type Department Care Team Description 05/30/2007 Telephone [facility] [address] Jennifer Hart Other Surgery [address] [place] [address] [place], [place] [phone] Social History Tobacco Use Types Packs/Day Years Used Date Smoking Tobacco: Never Assessed Sex Assigned at Date Recorded Not on file documented as of this encounter Progress Jennifer Cheema - 05/30/2007 4:37 PM CDT Phone Note filed by Jennifer Mendez at 01/21/11257 Author: Jennifer Mendez Service: (none) Author Type: Resource Filed: 01/21/11257 Note Time: 05/30/07 1637 Status: Signed C2 Tactical Analysis Technician: Jennifer Mendez (Resource) seen for facial veins and aging will start with vbeam 2 sessions at $220. each total $440. and pixil later at $2500. do in Oct. vbeam [id number] given rx for acyclovir for herpes. Created on 30May2007 4:37pm by JENNIFER MENDEZ R SHEAR OPERATOR documented in this encounter Plan of Treatment Not on filedocumented as of this encounter Visit Diagnoses Not on filedocumented in this encounter Care Teams Director Funeral Relationship Specialty Start Date End Date Titus Medina MD PCP - General 09/16/1996 03/17/15 documented as of this encounter
--- OUTSIDE RECORDS SUMMARY | 2022-07-30 19:46 | XMS_ITS | Encounter Summary ---
:1945 Author Organization [facility] Address [address], [place] [address] Care Team Providers Name Role Phone Titus Medina MD Primary Care Provider Encounter Details Date Type Department Care Team Description 04/28/2007 Office Visit [facility] [address] Clinic [address] [place] [address] [place], [place] [phone] Social History Tobacco Use Types Packs/Day Years Used Date Smoking Tobacco: Never Assessed Sex Assigned at Date Recorded Not on file documented as of this encounter Progress Notes Sharda Allen - 04/28/2007 12:01 AM CDT Progress Notes signed by Sharda Allen RN at 04/28/07 1312 Author: Sharda Allen RN Service: (none) Author Type: Registered Nurse Filed: 04/28/07 0000 Note Time: 04/28/07 0001 Status: Signed Jewelry Facer: Sharda Allen RN (Registered Nurse) Travel Clinic Initial Visit Patient is seen in Travel Clinic individually for travel education and counseling. TRAVEL PLANS Patient states they are planning to travel to: [place] Plans include travel to and/or lodging at: rural areas, urban areas High Risk Areas: Patient is not traveling to Yellow Fever risk area. Patient is not traveling to Malaria risk area. Departure Date: 05/09/2007 Estimated Length of Stay: 2 weeks. While traveling, patient plans to be staying at: hotel, son's apartment Purpose of Travel: pleasure, visit son who is teaching in country. HEALTH HISTORY Medications: Reviewed and updated today on Health Profile in the patients electronic medical record. Previous Health History: Problem List in electronic medical record was reviewed. No additional problems relevant to travel were identified. PATIENT EDUCATION Patient was given verbal and/or written information about: [place] Influenza, BSE, Diphtheria/Tetanus, Hepatitis A, Hepatitis B, Malian Encephalitis, Sexually Transmitted Diseases, Tickborne Illnesses, Travax/CDC information, Traveler's Diarrhea, Tuberculosis, Typhoid, Reviewed vaccine schedule and efficacy. Patient was also provided information about health care and insurance information while traveling abroad. Patient appears to understand all the information provided. IMMUNIZATIONS See immunization module on PHP for current immunizations. Patient was given the following immunizations per clinic protocol: Tdap, Typhim Vi, Reaction to Vaccine: Patient had no reaction. PRESCRIPTIONS Reviewed medication options for itinerary. Risks, benefits and side effects were discussed. The following prescriptions/OTC medications were given: Cipro. Imodium. (Patient was instructed to follow package directions for Imodium dose.) Pepto Bismol. (Patient was instructed to follow package directions for Pepto Bismol dose.) Patient educational information regarding these prescribed medications was provided. PLAN Laboratory Studies: No labs ordered. Return To Clinic: No follow-up visit needed. Time spent in individual counselin minutes. *SH~TRAVEL~INT ~[place] Note completed on: 04/28/2007 1:11 PM documented in this encounter Plan of Treatment Not on filedocumented as of this encounter Visit Diagnoses Not on filedocumented in this encounter Care Teams Mixing Pan Tender Relationship Specialty Start Date End Date Titus Medina MD PCP - General 09/16/1996 03/17/15 documented as of this encounter
--- OUTSIDE RECORDS SUMMARY | 2022-07-30 19:46 | XMS_ITS | Encounter Summary ---
:1945 Author Organization [facility] Address [address] [place] [address] Care Team Providers Name Role Phone Titus Medina MD Primary Care Provider Encounter Details Date Type Department Care Team Description 03/23/2007 Office Visit [facility] Jatinder Hi MD [address] [place] [address] [id number] [phone] Social History Tobacco Use Types Packs/Day Years Used Date Smoking Tobacco: Never Assessed Sex Assigned at Date Recorded Not on file documented as of this encounter Progress Notes Jatinder Pavon MD - 03/23/2007 12:01 AM CDT Progress Notes signed by Jatinder Pavon MD at 04/12/07 1650 Author: Jatinder Pavon MD Service: (none) Author Type: Physician Filed: 01/23/112003 Note Time: 03/23/07 0001 Status: Signed Unclaimed Property Officer: Jatinder Pavon MD (Physician) NAME: YIMI GARCIA MR#: [id number] ACCT: [id number] VISIT: [id number] DICTATING CLINICIAN: JATINDER PAVON MD JOB: [id number] LOC: 2602 CLINIC PROGRESS NOTE DATE OF VISIT: 03/23/2007 SUBJECTIVE: CHIEF COMPLAINT: Discuss hip arthritis. Patient had developed some hip pain, had been seen for this through the orthopedics department. Had been felt to probably be soft tissue and then when x-rays were obtained she surprisingly was found to have fairly significant DJD of her right hip and suspicion that there may have been some avascular necrosis causing this accelerated DJD in the right hip only, when the left hip appears intact. This is a surprise to her. The pain has come on fairly suddenly. It was recommended to her that she consider hip replacement surgery and she is wondering if that is appropriate recommendation and about the timing of this. Secondly she notes that she was referred for colonoscopy, but never got that arranged and would like to have that reordered. OBJECTIVE: Hip imaging is reviewed the patient. She unfortunately does indeed appear to have advanced DJD of the right hip and her exam was consistent with that. ASSESSMENT: DJD of the right hip. PLAN: Discussed nature of the condition with patient and that she almost certainly will need a hip surgery at some point. Discussed that the deciding factors are pain and function and that scheduling it at her convenience is certainly reasonable. Encouraged her to get a second opinion if that was something that she would desire and reassured her that there is no urgency to doing this other than her own discomfort. She will consider this and perhaps make another appointment with orthopedics. She is otherwise relatively young and healthy and should be a good surgical candidate. She is also referred to [facility] for colonoscopy. FAMILIA:[id number] C: 04/12/07 11:39 DOCUMENT: [id number] documented in this encounter Plan of Treatment Not on filedocumented as of this encounter Visit Diagnoses Not on filedocumented in this encounter Care Teams Wind Energy Technician Relationship Specialty Start Date End Date Titus Medina MD PCP - General 09/16/1996 03/17/15 documented as of this encounter
--- OUTSIDE RECORDS SUMMARY | 2022-07-30 19:46 | XMS_ITS | Encounter Summary ---
:1945 Author Organization [facility] Address [address] [place] [address] Care Team Providers Name Role Phone Titus Medina MD Primary Care Provider Encounter Details Date Type Department Care Team Description 10/31/2007 Emergency Room [facility] Emergency Dept Emergency, [facility] [address] [place] [address] Provider PROCEDURE/[place] [address] PROTOCOL [phone] Social History Tobacco Use Types Packs/Day Years Used Date Smoking Tobacco: Never Assessed Sex Assigned at Date Recorded Not on file documented as of this encounter Progress Notes Emergency, Provider - 10/31/2007 12:00 AM MASS SPECTROMETRY MANAGER documented in this encounter Plan of Treatment Not on filedocumented as of this encounter Visit Diagnoses Not on filedocumented in this encounter Care Teams Website Programmer Relationship Specialty Start Date End Date Titus Medina MD PCP - General 09/16/1996 03/17/15 documented as of this encounter
--- OUTSIDE RECORDS SUMMARY | 2022-07-30 19:46 | XMS_ITS | Encounter Summary ---
:1945 Author Organization [facility] Address [address] [place] [address] Care Team Providers Name Role Phone Titus Medina MD Primary Care Provider Encounter Details Date Type Department Care Team Description 05/30/2007 PN Conversion Only CALL WORKER PERSON [address] [place] [address] Social History Tobacco Use Types Packs/Day Years Used Date Smoking Tobacco: Never Assessed Sex Assigned at Date Recorded Not on file documented as of this encounter Plan of Treatment Not on filedocumented as of this encounter Visit Diagnoses Not on filedocumented in this encounter Care Teams Food Management Aide Relationship Specialty Start Date End Date Titus Medina MD PCP - General 09/16/1996 03/17/15 documented as of this encounter
--- OUTSIDE RECORDS SUMMARY | 2022-07-30 19:46 | XMS_ITS | Encounter Summary ---
:1945 Author Organization [facility] Address [address] [place] [address] Care Team Providers Name Role Phone No Primary/Referring, Phy Primary Care Provider Unavailable Encounter Details Date Type Department Care Team Description 04/07/2007 Notes/Orders CONVERSION CONVERSION Conversion , User [place] [address] Social History Tobacco Use Types Packs/Day Years Used Date Smoking Tobacco: Never Assessed Sex Assigned at Date Recorded Not on file documented as of this encounter Plan of Treatment Not on filedocumented as of this encounter Procedures Procedure Name Priority Date/Time Associated Diagnosis Comme nts COLONOSCOPY Routine 04/07/2007 6:14 PM CDT documented in this encounter Results COLONOSCOPY (04/07/2007 6:14 PM CDT) Specimen (Source) Anatomical Location Collection Method / Collectio n Time Received Time / Laterality Volume User Conversion PN HEALTH MAINTENANCE Performing Organization Address City/State/ZIP Code Phon e Number HP CONVERSION documented in this encounter Visit Diagnoses Not on filedocumented in this encounter Care Teams Truck Spotter Relationship Specialty Start Date End Date No Primary/Referring, Phy PCP - General 03/18/15 documented as of this encounter
--- OUTSIDE RECORDS SUMMARY | 2022-07-30 19:46 | XMS_ITS | Encounter Summary ---
:1945 Author Organization [facility] Address [address] [place] [address] Care Team Providers Name Role Phone Titus Medina MD Primary Care Provider Encounter Details Date Type Department Care Team Description 01/24/2008 Office Visit [facility], Therapy PT [address] [place], [place] [address] [place] [address] [phone] (Wo rk) Social History Tobacco Use Types Packs/Day Years Used Date Smoking Tobacco: Never Assessed Sex Assigned at Date Recorded Not on file documented as of this encounter Plan of Treatment Not on filedocumented as of this encounter Visit Diagnoses Not on filedocumented in this encounter Care Teams Dietitian Research Relationship Specialty Start Date End Date Titus Medina MD PCP - General 09/16/1996 03/17/15 documented as of this encounter
--- OUTSIDE RECORDS SUMMARY | 2022-07-30 19:46 | XMS_ITS | Encounter Summary ---
:1945 Author Organization [facility] Address [address] [place] [address] Care Team Providers Name Role Phone Titus Medina MD Primary Care Provider Encounter Details Date Type Department Care Team Description 09/01/2007 PN Conversion Only [facility] Solomon Carter MD [address] [place] [id number] (Wo rk) Social History Tobacco Use Types [...] Weight 79.8 kg (175 lb 15.9 oz) 09/01/2007 4:18 PM C: 7 9.8kg FLATBED PRESS OPERATOR Height 168.9 cm (5' 6.5) 09/01/2007 4:18 PM C: 168.9cm FLATBED PRESS OPERATOR Body Mass Index 27.98 09/01/2007 4:18 PM FLATBED PRESS OPERATOR documented in this encounter Plan of Treatment Not on filedocumented as of this encounter Procedures Procedure Name Priority Date/Time Associated Diagnosis Comme nts ECG 12 [facility] Routine 09/01/2007 5:18 PM Res ults for this FLATBED PRESS OPERATOR procedure are i n the results section. documented in this encounter Results ECG 12 lead clinic (09/01/2007 5:18 PM FLATBED PRESS OPERATOR) Specimen (Source) Anatomical Collection Method Collection Time Re ceived Time Location / / Volume Laterality 09/01/2007 5:18 PM FLATBED PRESS OPERATOR Narrative HP CONVERSION - 09/01/2007 5:18 PM FLATBED PRESS OPERATOR Normal sinus rhythm Normal ECG No previous ECGs available Imr Conversion PN ECG ORDERABLES Performing Organization Address City/State/ZIP Code Phon e Number HP CONVERSION documented in this encounter Visit Diagnoses Not on filedocumented in this encounter Care Teams Seed Sales Manager Relationship Specialty Start Date End Date Titus Medina MD PCP - General 09/16/1996 03/17/15 documented as of this encounter
--- OUTSIDE RECORDS SUMMARY | 2022-07-30 19:46 | XMS_ITS | Encounter Summary ---
:1945 Author Organization [facility] Address [address] [place] [address] Care Team Providers Name Role Phone Titus Medina MD Primary Care Provider Reason for Visit Reason Comments Other Encounter Details Date Type Department Care Team Description 10/25/[address] [facility] Sendy Conti Other [address] [facility] [address] [place], [place] [address] Social History Tobacco Use Types Packs/Day Years Used Date Smoking Tobacco: Never Assessed Sex Assigned at Date Recorded Not on file documented as of this encounter Progress Notes Sendy Juarez - 10/25/2007 2:07 PM CST Phone Note filed by Sendy Juarez MA at 01/21/11 7887 Author: Sendy Juarez MA Service: (none) Author Type: Funeral Greeter Filed: 01/21/11 1482 Note Time: 10/25/071406 Status: Signed Body Die Maker: Sendy Juarez MA (Funeral Greeter) patient needs refill of atelin nasal spray. uses [facility]. please print and will fax to [phone] Created on 25Oct2007 2:07pm by SENDY JUAREZ On 25Oct2007 3:11pm JATINDER DAVENPORT wrote: printed Acknowledged by JATINDER DAVENPORT on 3:11pm On 25Oct2007 3:14pm SENDY JUAREZ wrote: faxed [employer] documented in this encounter Plan of Treatment Not on filedocumented as of this encounter Visit Diagnoses Not on filedocumented in this encounter Care Teams Gas Technician Relationship Specialty Start Date End Date Titus Medina MD PCP - General 09/16/1996 03/17/15 documented as of this encounter
--- OUTSIDE RECORDS SUMMARY | 2022-07-30 19:46 | XMS_ITS | Encounter Summary ---
:1945 Author Organization [facility] Address [address] [place] [address] Care Team Providers Name Role Phone Titus Medina MD Primary Care Provider Encounter Details Date Type Department Care Team Description 04/05/2007 Office Visit [facility] Mark Coleman, [address], [facility] [address] [address] [place] [address] [place], [place] [address] (Wo rk) Social History Tobacco Use Types Packs/Day Years Used Date Smoking Tobacco: Never Assessed Sex Assigned at Date Recorded Not on file documented as of this encounter Last Filed Vital Signs Vital Sign Reading Time Taken Comments Blood Pressure 120/80 04/05/2007 2:02 PM CDT Pulse 64 04/05/2007 2:02 PM CDT Temperature - - Respiratory Rate - - Oxygen Saturation - - Inhaled Oxygen Concentration - - Weight 79.8 kg (175 lb 15.9 oz) 04/05/2007 2:02 PM CDT C: 79.8kg Height - - Body Mass Index 27.98 03/23/2007 11:32 AM CDT documented in this encounter Progress Notes Mark Arriaza, [facility] - 04/05/2007 12:01 AM CDT Progress Notes signed by SILAS Yun at 04/14/07 0133 Author: SILAS Yun Service: (none) Author Type: Physician Filed: 01/23/112018 Note Time: 04/05/07 0001 Status: Signed Oracle Consultant: SILAS Yun (Physician) NAME: YIMI GARCIA MR#: [id number] ACCT: [id number] VISIT: [id number] DICTATING CLINICIAN: MARK ARRIAZA MD JOB: [id number] LOC: 2602 CLINIC PROGRESS NOTE DATE OF VISIT: 04/05/2007 SUBJECTIVE: : 1945. CHIEF COMPLAINT: Followup for wart treatment. Patient is a 51-year-old female who was last seen by me on 03/16 for treatment of wart on the right index finger. At that time patient had wart frozen with liquid nitrogen in 3 cycles of freeze and thaw. Patient was advised to follow up in about 2-3 weeks for another treatment cycle. 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 Patient would therefore like to have the second PPD placed today. She denies any cough weight loss, night sweats, or loss of appetite. REVIEW OF SYSTEMS: Negative. OBJECTIVE: VS: BP: 120/80. P: 64. WT: 176 lb. GENERAL: Patient is alert, is not in any acute distress. CHEST: Clear clinically to auscultation bilaterally. SKIN: Revealed 2 warts on the right index finger measuring about 0.2 x 0.2 cm and about 0.2 x 0.1 cm on the right index finger no No skin irritation noted. ASSESSMENT: Warts on right index finger. Each wart was frozen with liquid nitrogen in 3 cycles of freeze and thaw. Patient did tolerate the procedure well. Advised to use Tylenol as needed. Also told She had all her concerns addressed. PLAN: See assessment. This patient was staffed with Dr. Ahn Coleman. SA:[id number] C: 04/07/07 07:37 DOCUMENT: [id number] documented in this encounter Plan of Treatment Not on filedocumented as of this encounter Visit Diagnoses Not on filedocumented in this encounter Care Teams Mothers Helper Relationship Specialty Start Date End Date Titus Medina MD PCP - General 09/16/1996 03/17/15 documented as of this encounter
--- OUTSIDE RECORDS SUMMARY | 2022-07-30 19:46 | XMS_ITS | Encounter Summary ---
:1945 Author Organization [facility] Address [address] [place] [address] Care Team Providers Name Role Phone Titus Medina MD Primary Care Provider Encounter Details Date Type Department Care Team Description 03/16/2007 Office Visit [facility] Mark Coleman, [address], [facility] [address] [place] [address] [place], [place] [address] (Wo rk) Social History Tobacco Use Types Packs/Day Years Used Date Smoking Tobacco: Never Assessed Sex Assigned at Date Recorded Not on file documented as of this encounter Last Filed Vital Signs Vital Sign Reading Time Taken Comments Blood Pressure 140/80 03/16/2007 4:45 PM CDT Pulse 88 03/16/2007 4:45 PM CDT Temperature - - Respiratory Rate - - Oxygen Saturation - - Inhaled Oxygen Concentration - - Weight 80.7 kg (177 lb 15.6 oz) 03/16/2007 4:45 PM CDT C: 80.7kg Height - - Body Mass Index 28.3 07/08/2006 4:10 PM CDT documented in this encounter Progress Notes Mark Arriaza, [facility] - 03/16/2007 12:01 AM CDT Progress Notes signed by Danish Sterling MD at 04/07/07 0920 Author: SILAS Yun Service: (none) Author Type: Physician Filed: 01/23/111954 Note Time: 03/16/072015 Status: Signed Bicycle Ii Assembler: SILAS Yun (Physician) NAME: YIMI GARCIA MR#: [id number] ACCT: [id number] VISIT: [id number] DICTATING CLINICIAN: MARK ARRIAZA MD JOB: [id number] LOC: 2602 CLINIC PROGRESS NOTE DATE OF VISIT: 03/16/2007 SUBJECTIVE: : 1945. CHIEF COMPLAINT: Wart on finger. Patient is a 61-year-old female comes to the clinic today with complaints of wart on the right index finger. Patient states she has it for a while and was to have it removed. She has no other concerns. REVIEW OF SYSTEMS: Otherwise negative. PAST MEDICAL HISTORY: Reviewed and updated in [employer]. MEDICATIONS: Drug history is reviewed and updated in [employer]. SOCIAL HISTORY: Reviewed and updated in [employer]. OBJECTIVE: VS: BP: 140/80. P: 88. Wt: 178 lb. Patient is alert, pleasant, not in acute distress. HEENT: Head is normocephalic, atraumatic. Conjunctivae and lids are normal. Pupils are round and reactive bilaterally. CHEST: Clear to auscultation and palpation bilaterally. CARDIOVASCULAR: Regular rate and rhythm. Heart sounds 1 and 2 present, no murmurs heard. ABDOMEN: Soft, no areas of tenderness. Bowel sounds are present and normal. SKIN: Examination of the right index finger showed a wart about 0.3 x 0.3 cm with no evidence of irritation. No scratch mohan. ASSESSMENT: Wart on right index finger. Wart was frozen with liquid nitrogen. Patient had 3 cycles of freeze and thaw and tolerated the procedure very well. Patient informed that this may be blister after a while and may be tender. Advised to use Tylenol as needed. Also advised to schedule an appointment in about 2 weeks for another freeze and thaw cycle. She had all her concerns addressed . This patient was precepted with Dr Emilio Carver / Rob Sterling. PLAN: SA:[id number] C: 03/17/07 12:04 DOCUMENT: [id number] sab GRINDER HELPER documented in this encounter Plan of Treatment Not on filedocumented as of this encounter Visit Diagnoses Not on filedocumented in this encounter Care Teams Private Wealth Advisor Relationship Specialty Start Date End Date Titus Medina MD PCP - General 09/16/1996 03/17/15 documented as of this encounter
--- OUTSIDE RECORDS SUMMARY | 2022-07-30 19:46 | XMS_ITS | Encounter Summary ---
:1945 Author Organization [facility] Address [address], [place] [address] Care Team Providers Name Role Phone Titus Medina MD Primary Care Provider Encounter Details Date Type Department Care Team Description 09/20/2007 [facility] Kevin Rivera Op Report-Dictated [address] [place], [place] [address] [address] [facility] N [phone] [place], [place] [address] Social History Tobacco Use Types Packs/Day Years Used Date Smoking Tobacco: Never Assessed Sex Assigned at Date Recorded Not on file documented as of this encounter Procedure Notes Kevin Rivera MD - 09/20/2007 12:00 AM CSTAssociated Order(s): IMAGING REPORTS HX Kevin Plasencia MD - 09/20/2007 12:00 AM CSTAssociated Order(s): LAB IP Kevin Plasencia MD - 09/20/2007 12:00 AM CSTAssociated Order(s): ECG TRACING Kevin Rivera MD - 09/20/2007 12:00 AM CSTAssociated Order(s): IMAGING REPORTS HX documented in this encounter Plan of Treatment Not on filedocumented as of this encounter Procedures Procedure Name Priority Date/Time Associated Diagnosis Comme nts IMAGING REPORTS HX 09/20/2007 12:00 AM Re sults for this SENIOR NET APPLICATION DEVELOPER procedure are i n the results section. LAB IP 09/20/2007 12:00 AM Results for this SENIOR NET APPLICATION DEVELOPER procedure are i n the results section. ECG TRACING 09/20/2007 12:00 AM Results for this SENIOR NET APPLICATION DEVELOPER procedure are i n the results section. documented in this encounter Results LAB IP (09/20/2007 12:00 AM SENIOR NET APPLICATION DEVELOPER) Narrative This result has an attachment that is no t available. Transcriptions Kevin Rivera MD - 09/20/2007 12 :00 AM CST Kevin Rivera MD DUMMY/OTHER/AR IMAGING REPORTS HX (09/20/2007 12:00 AM SENIOR NET APPLICATION DEVELOPER) Anatomical Region Laterality Modality Other Narrative This result has an attachment that is no t available. Transcriptions Kevin Rivera MD - 09/20/2007 12 :00 AM CST Kevin Rivera MD - 09/20/2007 12 :00 AM CST Kevin Rivera MD DUMMY/OTHER/AR ECG TRACING (09/20/2007 12:00 AM SENIOR NET APPLICATION DEVELOPER) Narrative This result has an attachment that is no t available. Transcriptions Kevin Rivera MD - 09/20/2007 12 :00 AM CST Kevin Rivera MD EKG documented in this encounter Visit Diagnoses Not on filedocumented in this encounter Care Teams Wardrobe Supervisor Relationship Specialty Start Date End Date Titus Medina MD PCP - General 09/16/1996 03/17/15 documented as of this encounter
--- OUTSIDE RECORDS SUMMARY | 2022-07-30 19:46 | XMS_ITS | Encounter Summary ---
:1945 Author [facility] Address [address] [place] [address] Care Team Providers Name Role Phone Titus Medina MD Primary Care Provider Encounter Details Date Type Department Care Team Description 09/01/2007 PN Conversion Only [facility] CON[facility] Balbir Cassidy MD [address] [place], [place] [address] (Wo rk) Social History Tobacco Use Types Packs/Day Years Used Date Smoking Tobacco: Never Assessed Sex Assigned at Date Recorded Not on file documented as of this encounter Plan of Treatment Not on filedocumented as of this encounter Visit Diagnoses Not on filedocumented in this encounter Care Teams Weaving Loom Operator Relationship Specialty Start Date End Date Titus Medina MD PCP - General 09/16/1996 03/17/15 documented as of this encounter
--- OUTSIDE RECORDS SUMMARY | 2022-07-30 19:46 | XMS_ITS | Encounter Summary ---
:1945 Author Organization [facility] Address [address], [place] [address] Care Team Providers Name Role Phone Titus Medina MD Primary Care Provider Reason for Visit Reason Comments Other Encounter Details Date Type Department Care Team Description 03/09/2007 Telephone [facility], Message Other [address] [employer] , [address] [place] [address] Social History Tobacco Use Types Packs/Day Years Used Date Smoking Tobacco: Never Assessed Sex Assigned at Date Recorded Not on file documented as of this encounter Progress Notes Ramin Barros RN - 03/09/2007 8:58 AM CDT Phone Note filed by Ramin Barros RN at 01/20/112154 Author: Ramin Barros RN Service: (none) Author Type: Registered Nurse Filed: 01/20/112154 Note Time: 03/09/07857 Status: Signed Second Rigger: Ramin Barros RN (Registered Nurse) Patient calling and is ready to have her Colonoscopy and would like a referral and she will call and schedule herself. Will notify patient when referral is done at [phone]. Please forward esha Bear when done. Created on 09Mar2007 8:58am by RAMIN BARROS On 09Mar2007 12:03pm JATINDER DAVENPORT wrote: OK for screening colonoscopy Acknowledged by JATINDER DAVENPORT on 12:03pm On 09Mar2007 12:56pm ANAT TANG wrote: Left message for Ramona to call me back. Acknowledged by ANAT TANG on 12:56pm On 11Mar2007 3:05pm ANAT TANG wrote: Will schedule Colonoscopy at [facility]. Acknowledged by ANAT TANG on 3:05pm URCE RECOVERY SPECIALIST documented in this encounter Plan of Treatment Not on filedocumented as of this encounter Visit Diagnoses Not on filedocumented in this encounter Care Teams Drilling Field Professional Relationship Specialty Start Date End Date Titus Medina MD PCP - General 09/16/1996 03/17/15 documented as of this encounter
--- OUTSIDE RECORDS SUMMARY | 2022-07-30 19:46 | XMS_ITS | Encounter Summary ---
:1945 Author Organization [employer] Address [address] [place] [address] Care Team Providers Name Role Phone Titus Medina MD Primary Care Provider Reason for Visit Reason Comments HIP PAIN--ED Encounter Details Date Type Department Care Team Description 10/31/2007 Emergency [facility] Emergency Dept Martínez Bajwa MD [address] [place] [address] Hip Dislocation 640 [facility] Sylvia Savage MD [address] [place], [place] [address] [place] [address] Social History Tobacco Use Types Packs/Day Years Used Date Smoking Tobacco: Never Assessed Sex Assigned at Date Recorded Not on file documented as of this encounter Last Filed Vital Signs Vital Sign Reading Time Taken Comments Blood Pressure 158/86 10/31/2007 6:39 PM FABRIC AND ACCESSORIES ESTIMATOR Pulse 78 10/31/2007 6:39 PM FABRIC AND ACCESSORIES ESTIMATOR Temperature 36.1 ??C (97 ??F) 10/31/2007 1:05 PM FABRIC AND ACCESSORIES ESTIMATOR Respiratory Rate 16 10/31/2007 6:39 PM FABRIC AND ACCESSORIES ESTIMATOR Oxygen Saturation 99% 10/31/2007 6:39 PM FABRIC AND ACCESSORIES ESTIMATOR Inhaled Oxygen Concentration - - Weight - - Height - - Body Mass Index - - documented in this encounter Discharge Instructions Discharge InstructionsThNanda barnes 10/31/2007 5:01 PM FABRIC AND ACCESSORIES ESTIMATOR Dear Ms. Garcia, Thank you for choosing [facility] for your emergency medical needs. You have received emergency care only and your condition may change. Therefore, we highly recommend you follow-up with your physician as directed. For follow-up care contact: Please follow up with your orthopedic doctor, Dr. Rivera. Wear your knee immobilizer during the dayand use the hip abductor at night. Further workup and treatment may be needed if symptoms persist, worsen or new related symptoms occur. For follow-up care, you should be seen within 2-3 days. When you see your doctor, bring your medications and instructions to the office. If you had x-rays,an EKG, or lab tests today, they have been reviewed by your emergency department doctor. We will contact you at once if other important findings are notified after further review of our staff. If you do not continue to improve or if your condition worsens, please call your doctor or the emergency roomright away. I understand that my condition may require more care and will arrange for further treatment as recommended. Your medical provider or nurse discussed with you the following: * Danger signs to watch out for when you got home. * If you were given new medication, we discussed how to take the new medication. * If you were given new medication, we discussed the possible side effects, or referred you to talkto the pharmacist. * If you have any questions or concerns after you leave the ED, then you knew who to call. If you would like to be seen in a [facility] clinic, please call the [facility] Appointment Desk at [phone] anytime between 7:00 AM and 9:00 PM, 7 days a week, 365 days a year (Hearing Impaired: ). Please bring these instructions with you when you are seen in your follow-up appointment. Co-pays for this visit may be paid for at the discharge desk. IC AND ACCESSORIES ESTIMATOR AttachmentsThe following attachments cannot be sent through Care Everywhere.Hip Dislocationdocumented in this encounter Medications at Time of [...] Rhinitis estradiol (AKA ESTRACE) LW Addl Instr:Insert 127.5 3 08/02/2012 0.1 MG/GM vaginal cream 1 gm vaginally 1-3 times per week. GUAIFENESIN OR Take 1 tablet by 180 3 08/03/200610/06 mouth every 12 hours as needed. hydrocortisone-pramoxine LW Comment:use as 30 0 12/2 03/200703/30/2010 (AKA PROCTOFOAM-HC) 1-1 needed % rectal foam hydrocortisone-pramoxine LW Comment:use as 10 0 10/0 02/200603/30/2010 (AKA PROCTOFOAM-HC) 1-1 needed % rectal foam hydrocortisone-pramoxine LW Comment:use as 0 05/2 12/200503/30/2010 (AKA PROCTOFOAM-HC) 1-1 needed % rectal foam hydrocortisone-pramoxine LW Comment:use as 10 0 08/2 02/200503/30/2010 (AKA PROCTOFOAM-HC) 1-1 needed % rectal foam hydrOXYzine HCl (AKA Take 1 tablet by 360 3 7 03/30/2010 ATARAX) 25 MG tablet mouth every 6 hours as needed. hydrOXYzine HCl (AKA Take 1 tablet by 90 0 6 03/30/2010 ATARAX) 25 MG tablet mouth every 6 hours as needed. hydrOXYzine HCl (AKA Take 1 tablet by 0 6 03/30/2010 ATARAX) 25 MG tablet mouth every 6 hours as needed. hydrOXYzine HCl (AKA Take 1 tablet by 30 0 5 03/30/2010 ATARAX) 25 MG tablet mouth every 6 hours as needed. hydrOXYzine HCl (AKA Take 1 tablet by 0 5 03/30/2010 ATARAX) 25 MG tablet mouth every 6 hours as needed. UNKNOWN MEDICATION Indications: PN: 0 09/01/2007 10/08/2008 UNKNOWN MEDICATION Indications: PN: 0 05/30/2007 10/08/2008 UNKNOWN MEDICATION Indications: PN: 0 05/29/2007 10/08/2008 UNKNOWN MEDICATION Indications: PN: 0 04/28/2007 10/08/2008 UNKNOWN MEDICATION Indications: PN: 0 02/24/2007 10/08/2008 UNKNOWN MEDICATION Indications: PN: 0 09/19/2006 10/08/2008 UNKNOWN MEDICATION Indications: PN: 0 08/09/2006 10/08/2008 UNKNOWN MEDICATION Indications: PN: 0 07/08/2006 10/08/2008 UNKNOWN MEDICATION Indications: PN: 0 04/15/2006 10/08/2008 UNKNOWN MEDICATION Indications: PN: 0 02/23/2006 10/08/2008 UNKNOWN MEDICATION Indications: PN: 0 03/27/2005 10/08/2008 UNKNOWN MEDICATION Indications: PN: 0 04/29/2004 10/08/2008 DILAUDID OR None Entered 0 10/31/2007 04/12/2019 documented as of this encounter ED Notes Jayda Abdi - 10/31/2007 6:38 PM CST Patient demonstrated use of crutches appropriately. Written and verbal discharge instructions given to patient. Vital signs and pain as charted. Patient verbalized understanding of reasons to return toemergency room and when and where to follow up at clinic. Discharged in wheelchair to lobby. Denies further questions or concerns. Son at patient's side and is driving patient home. IC AND ACCESSORIES ESTIMATOR Jayda Abdi - 10/31/2007 5:55 PM CST Knee immobilizer placed by ERT and EDRN. Patient stood up, had episode of nausea, sat down and begandry heaving. notified and patient medicated for nausea. Will attempt crutch teaching when nausea subsides. Son at bedside. IC AND ACCESSORIES ESTIMATOR Nanda Patel V - 10/31/2007 5:02 PM FABRIC AND ACCESSORIES ESTIMATOR VISIT DATE: 10/31/2007 CHIEF COMPLAINT: Hip pain. HISTORY OF PRESENT ILLNESS: This is a 62-year-old female with a previous history of fracture statuspost right hip surgery on 09/20/2007 at [facility], previous orthopedics in Dr. Kevin Rivera of [facility] here with acute onset of right hip pain after sitting on the side of her tubshaving her legs and she felt that she lifted her right knee up with internal rotation followed by onset of pain as though she dislocated her hip as in previous times. She describes the pain as sharp with difficulty ranging. She has not bore weight on it since the event happened. She called medics whogave her 2 Versed, 4 Zofran and 100 mcg of fentanyl with minimal improvement of her pain. REVIEW OF SYSTEMS: The patient is otherwise healthy, no fevers, chills, recent illness, rashes, injuries. Negative except as in HPI. Past medical, medications, and allergies reviewed as in Epic. SOCIAL HISTORY: The patient does not smoke, lives at home alone. FAMILY MEDICAL HISTORY: Noncontributory. PHYSICAL EXAMINATION: On physical exam, vitals reviewed as in Epic, she is afebrile, vital signs stable. Generally, she is alert, oriented, cooperative good historian in mild distress due to pain. HEENT: Normocephalic, atraumatic, clear oropharynx. Pupils equally round, react to light. Abdomen soft, nontender, nondistended. Respiratory: Good inspiratory effort. Cardiovascular: Good distal perfusion.Extremities: The patient with right hip pain but thigh is in neutral position without any shorteningor internal rotation. The patient's CMS is intact and distal to her injury good distal pulse. The patient had sensation to light touch intact on her right lower extremity. Neuro: Alert, clear speech. Skin: No obvious rashes. Results reviewed as in [facility]. MEDICAL DECISION MAKING: This is a 62-year-old female status post hip replacement with right hip pain after internal rotation. Differential diagnoses includes dislocation versus fracture versus musculoskeletal pain. She was given Dilaudid and Zofran and Versed with good control of her pain and x-rayswere obtained. X-ray was remarkable for posterior dislocation of prosthetic hip without any obvious signs of fracture. The patient was consented for procedural sedation, was ultimately given 8 of Versed and 80 of fentanyl with moderate sedation. The patient tolerated the reduction well and postreduction films were found to have the hip in good alignment. The patient was placed in a knee immobilizer and was given a hip adduction pillow for nights. [facility] was consulted who recommended followup in the next 2 days, to remain in the knee immobilizer during the day and to use her hip adduction pillow at night. She was counseled to return with any change in range of motion, increased pain or any other concerns. ASSESSMENT: Hip dislocation. PLAN: Discharged home, follow up with orthopedics in the next 2 days, to wear the above stated devices as above, to return as above. Nanda Patel MD Staff: Martínez Bajwa MD [facility] Dictated: 10/31/2007 17:02:46 Transcribed: 10/31/2007 17:47:54 Doc #: [id number] cc:Titus Medina MD, Primary Physician 1 Page 2 Patient Name: RAMONA GARCIA Visit Date: 10/31/2007 EMERGENCY MEDICINE NOTE CONFIDENTIAL MEDICAL RECORD [address] [address] Page 1 Patient: RAMONA [facility]ARCIA [id number] Date of : 1945 Age: 62Y Visit Date: 10/31/2007 EMERGENCY MEDICINE NOTE Jayda Abdi - 10/31/2007 4:28 PM CST Patient A/O x 4. Speaks full sentences. To xray. IC AND ACCESSORIES ESTIMATOR Jayda Abdi - 10/31/2007 4:03 PM CST Hip abduction pillow placed by ERT and EDRN. CMS intact. Cap refill <3. Skin pink cool and dry. +dorsalis pedis pulse. IC AND ACCESSORIES ESTIMATOR Martínez Bajwa - 10/31/2007 3:56 PM CST I was present for burgos portion of Procedural Sedation and Reduction [facility] IC AND ACCESSORIES ESTIMATOR Jayda Abdi - 10/31/2007 3:44 PM CST Report received from Maddie Houston RN. Care assumed. Procedural sedation performed for hip reduction. See procedural sedation flowsheet for medications administered and vital signs. Patient tolerated well. IC AND ACCESSORIES ESTIMATOR Latoya Hdz - 10/31/2007 3:19 PM CST Report given to Jayda Shaffer RN. IC AND ACCESSORIES ESTIMATOR Latoya Hdz - 10/31/2007 3:06 PM CST Pt back from Xray and the MD is in the room explaining the results of the xray and procedure. IC AND ACCESSORIES ESTIMATOR Latoya Hdz - 10/31/2007 2:13 PM CST Pt to Xray IC AND ACCESSORIES ESTIMATOR Latoya Hdz - 10/31/2007 1:28 PM CST Pt c/o no relief with pain medications. The pt was medicated with 1mg Dilaudid and 4mg Zofran. + Pedal pulse to the right foot. IC AND ACCESSORIES ESTIMATOR Martínez Bajwa - 10/31/2007 1:20 PM CST [facility] Emergency Department Attending Supervision Note Martínez Bajwa M.D. Patient Name: Ramona Garcia Date of : 1945 I performed the burgos elements of the history and exam, and agree with the findings and plan of care as discussed with Dr. Nanda Patel. PMH, FH, SOC, ROS reviewed-- Please see today's note by the midlevel provider for full details regarding the ED visit. Chief Complaint Patient presents with ??? HIP PAIN--ED HPI: This is a 62 yr female presenting to the [facility] ED with R hip pain. Pt s/p minimally invasive hip replacement last month at [place]. Today bent to shave legs, +pain. Exam: BP 156/85 Pulse 66 Temp (Src) 97 ??F (36.1 ??C) (Oral) Resp 18 SpO2 97% General: Alert, oriented to person, place, time. Normal hydration. Patient in mild distress due to pain. Head: Atraumatic Eyes: PERRL and conjunctivae clear Musculoskeletal/Extremities: R hip with pain but thigh in neutral position Neuro: Speech clear Psychiatric: Affect/mood normal, patient is cooperative with normal judgement/insight Assessment/Plan and Medical Decision Making: -62 yr female in s/p hip replacement with R hip pain PLAN: Pain control Xrays Reassess This electronic signature covers the nursing and ancillary testing orders for this visit. Author: Martínez Bajwa MD Yesica Paris V - 10/31/2007 1:04 PM CST Pt to ED via medics with c/o right hip pain. She had R hip surgery on 09/20/07 at [facility].Today she was sitting on the side of her bathtub shaving her legs, she lifted her right knee up and felt a sudden onset of pain, feels as though the hip dislocated. Pt in acute pain. Good CMS. in room now evaluating. Medics gave pt 100mcg Fentanyl, 2mg Versed and 4mg Zofran. IC AND ACCESSORIES ESTIMATOR documented in this encounter Plan of Treatment Not on filedocumented as of this encounter Procedures Procedure Name Priority Date/Time Associated Diagnosis Comme nts AP PELVIS & RT. Routine 10/31/2007 4:34 PM Result s for this LATERAL HIP FABRIC AND ACCESSORIES ESTIMATOR procedure are i n (TRAUMA) the results section. AP PELVIS & RT. Routine 10/31/2007 2:28 PM Result s for this LATERAL HIP FABRIC AND ACCESSORIES ESTIMATOR procedure are i n (TRAUMA) the results section. documented in this encounter Results AP PELVIS & RT. LATERAL HIP (TRAUMA) (10/31/2007 4:34 PM FABRIC AND ACCESSORIES ESTIMATOR) Anatomical Region Laterality Modality Other Specimen (Source) Anatomical Collection Method Collection Time Re ceived Time Location / / Volume Laterality 10/31/2007 4:34 PM FABRIC AND ACCESSORIES ESTIMATOR Narrative 11/01/2007 1:16 PM FABRIC AND ACCESSORIES ESTIMATOR relocation, post reduction: TRAUMA . AP PELVIS AND LATERAL VIEW OF RIGHT HIP 10/31/07 1621 COMPARISON: ??AP pelvis 10/31/07 at 1409. INDICATIONS: ??Status post relocation fr om trauma. FINDINGS AND IMPRESSION: Relocation of the right femoral head in the prosthetic right acetabular cup. ??The position of the ac etabular cup is unchanged from the earlier study of 10/31/07. ??No acute fracture. ??Metallic foreign body seen scattered over the low er pelvis. ??There is dystrophic calcification adjacent to the right femoral greater trochanter. ??Left hip is intact. ??Mild degenerative changes of the sacroiliac joints. Martínez Bajwa MD [facility] GENER[facility]IC/RH AP PELVIS & RT. LATERAL HIP (TRAUMA) (10/31/2007 2:28 PM FABRIC AND ACCESSORIES ESTIMATOR) Anatomical Region Laterality Modality Other Specimen (Source) Anatomical Collection Method Collection Time Re ceived Time Location / / Volume Laterality 10/31/2007 2:28 PM FABRIC AND ACCESSORIES ESTIMATOR Narrative 11/01/2007 8:58 AM FABRIC AND ACCESSORIES ESTIMATOR frx, dislocation: TRAUMA . AP PELVIS AND RIGHT LATERAL HIP 10/31/07 @ 1400 HOURS: INDICATION: Pain. Trauma. FINDINGS: Right hip arthroplasty. Head o f femoral stem is dislocated from the acetabular cup. Head of femoral stem is located superiorly, laterally and slightly posteriorly. Post op changes in the pelvis. Martínez Bajwa MD RAD GENERAL DIAGNOSTIC/RH documented in this encounter Visit Diagnoses Diagnosis Hip dislocation Closed dislocation of hip, unspecified s ite documented in this encounter Administered Medications Inactive Administered Medications - up to 3 most recent administrations Medication Order MAR Action Action Date Dose Rate Site DIAZEpam (VALIUM) injection 5 mg Given 10/31/2007 2:00 PM FABRIC AND ACCESSORIES ESTIMATOR 5 mg 5 mg, Intravenous, NOW, On Wed10/31/07 at 1348, For 1 dose, rate of IV push: do not exceed, in children 1-2 mg/min; in adults 5 mg/min HYDROmorphone (DILAUDID) injection 2 mg Given 10/31/2007 1:24 PM FABRIC AND ACCESSORIES ESTIMATOR 1 mg 2 mg, Intravenous, NOW, 1 dose, On Wed10/31/07 at 1315 Given 10/31/2007 1:08 PM FABRIC AND ACCESSORIES ESTIMATOR 1 mg metoCLOPRAMIDE (REGLAN) injection 10 mg Given 10/31/2007 5:55 PM FABRIC AND ACCESSORIES ESTIMATOR 10 mg 10 mg, Intravenous, NOW, On Wed10/31/07 at 1748, For 1 dose ondansetron (ZOFRAN) injection 4 mg Given 10/31/2007 1:15 PM FABRIC AND ACCESSORIES ESTIMATOR 4 mg 4 mg, Intravenous, NOW, On Wed10/31/07 at 1315, For 1 dose ondansetron (ZOFRAN) injection 4 mg Given 10/31/2007 3:20 PM FABRIC AND ACCESSORIES ESTIMATOR 4 mg 4 mg, Intravenous, NOW, On Wed10/31/07 at 1549, For 1 dose documented in this encounter Active and Recently Administered Medications Times are shown in FABRIC AND ACCESSORIES ESTIMATOR. Scheduled Medication Order 10/29/2007 10/30/2007 10/31/2007 DIAZEpam (VALIUM) injection 5 mg (COMPLETED) 1400 (Given - Provider: Latoya Hdz) 5 mg, Intravenous, NOW, On Wed10/31/07 a t 1348, For 1 dose, rate of IV push: do not exceed, in children 1-2 mg/min; in adults 5 mg/min HYDROmorphone (DILAUDID) injection 2 mg (COMPLETED) 1308 (Given - Provider: Yesica Stallworth V)1324 (Given - Provider: Maddie Cobian) 2 mg, Intravenous, NOW, 1 dose, On Wed10/31/07 at 1315 metoCLOPRAMIDE (REGLAN) injection 10 mg (COMPLETED) 1755 (Given - Provider: Jayda Abdi) 10 mg, Intravenous, NOW, On Wed10/31/07 at 1748, For 1 dose ondansetron (ZOFRAN) injection 4 mg (COMPLETED) 1315 (Given - Provider: Maddie Cobian) 4 mg, Intravenous, NOW, On Wed10/31/07 at 1315, For 1 dose ondansetron (ZOFRAN) injection 4 mg (COMPLETED) 1520 (Given - Provider: Jayda Abdi) 4 mg, Intravenous, NOW, On Wed10/31/07 at 1549, For 1 dose documented in this encounter Care Teams Spine Nurse Relationship Specialty Start Date End Date Titus Medina MD PCP - General 09/16/1996 03/17/15 documented as of this encounter
--- OUTSIDE RECORDS SUMMARY | 2022-07-30 19:46 | XMS_ITS | Encounter Summary ---
:1945 Author Organization [facility] Address [address] [place] [address] Care Team Providers Name Role Phone Titus Medina MD Primary Care Provider Encounter Details Date Type Department Care Team Description 05/29/2007 Office Visit [facility] 3850 Urgent Adan Garcia MD Care [address] [facility] [address] [facility] [place] [address] [place], [place] [id number] [phone] Social History Tobacco Use Types Packs/Day Years Used Date Smoking Tobacco: Never Assessed Sex Assigned at Date Recorded Not on file documented as of this encounter Last Filed Vital Signs Vital Sign Reading Time Taken Comments Blood Pressure 123/71 05/29/2007 11:22 AM CDT Pulse 78 05/29/2007 11:22 AM CDT Temperature 36.7 ??C (98.1 ??F) 05/29/2007 11:22 C: 36.7 C S imultaneous AM CDT filing. User may not have seen previo us data. Respiratory Rate 18 05/29/2007 11:22 AM CDT Oxygen Saturation - - Inhaled Oxygen - - Concentration Weight - - Height - - Body Mass Index - - documented in this encounter Progress Notes Adan Garcia MD - 05/29/2007 12:01 AM CDT Progress Notes signed by Adan Garcia MD at 06/08/07 0111 Author: Elsi Garcia MD Service: (none) Author Type: Physician Filed: 01/23/112120 Note Time: 05/29/07 0001 Status: Signed Ocularist: Elsi Garcia MD (Physician) NAME: YIMI GARCIA MR#: [id number] ACCT: [id number] VISIT: [id number] DICTATING CLINICIAN: ELSI GARCIA MD JOB: [id number] LOC: 420 CLINIC PROGRESS NOTE DATE OF VISIT: 05/29/2007 SUBJECTIVE: This 61-year-old pleasant patient presented for evaluation of a fall that happened yesterday. She injured the knees, right foot, and right hand. Now is here for evaluation. Her main problem is with the right foot. ADR/ALLERGIES: NO ALLERGIES. OBJECTIVE: VS: Normal. She has a flap-type laceration on the palm of the right hand. We removed the flat and put bacitracin and dressing on it. She also has 2 abrasions on the knees, left worse than right. Knees otherwise are okay. Bony part of the knees are intact. She is able to walk. The right foot, however, the second toe was swollen, tender to touch. We took the x-ray. That was negative. ASSESSMENT: 1. Right foot contusion. 2. Abrasion of the knees and right palm. PLAN: Wound care instruction was given. Advised to take ibuprofen. In case of having more problems, recommended to let us know. [facility]:[id number] C: 05/30/07 09:33 DOCUMENT: [id number] documented in this encounter Plan of Treatment Not on filedocumented as of this encounter Procedures Procedure Name Priority Date/Time Associated Diagnosis Comme nts XR FOOT RT 3+ VIEWS Routine 05/29/2007 12:06 PM R esults for this CDT procedure are i n the results section. documented in this encounter Results XR Foot Rt 3+ Views (05/29/2007 12:06 PM CDT) Anatomical Region Laterality Modality Lower Extremity, Foot Other Specimen (Source) Anatomical Location Collection Method / Collectio n Time Received Time / Laterality Volume Narrative 05/29/2007 12:06 PM CDT HISTORY: ??Pain after falling yesterday. FINDINGS: ??No acute bone or joint abnor mality. ??There is some spurring of the calcaneus. ??Mild degene rative changes are scattered about several of the IP joints of the di gits and the talonavicular joint with narrowing. MT/car [id number] Dictating STEFANO ZENG RADIOLOGIST Procedure Note Stefano Alvares - 12/05/2016Formatting o f this note might be different from the original. HISTORY: Pain after falling yesterday. FINDINGS: No acute bone or joint abnorma lity. There is some spurring of the calcaneus. Mild degenera tive changes are scattered about several of the IP joints of the di gits and the talonavicular joint with narrowing. MT/car [id number] Dictating STEFANO ZENG RADIOLOGIST Adan Garcia MD RAD GD documented in this encounter Visit Diagnoses Not on filedocumented in this encounter Care Teams Photocopier Technician Relationship Specialty Start Date End Date Titus Medina MD PCP - General 09/16/1996 03/17/15 documented as of this encounter
--- OUTSIDE RECORDS SUMMARY | 2022-07-30 19:46 | XMS_ITS | Encounter Summary ---
:1945 [facility] Address [address] [place] [address] Care Team Providers Name Role Phone Titus Medina MD Primary Care Provider Encounter Details Date Type Department Care Team Description 04/08/2007 Hospital Encounter [facility] CONVERSION Pascual Parker MD Social History Tobacco [...] Name Priority Date/Time Associated Diagnosis Comme nts FL INJECTION LARGE Routine 04/08/2007 10:49 AM Re sults for this JOINT RT (SHOULDER CDT procedure are in HIP KNEE) the results section. documented in this encounter Results FL Injection Large Joint Rt (Shoulder Hip Knee) (04/08/2007 10:49 AM CDT) Anatomical Region Laterality Modality Lower Extremity, Upper Extremity, Shoulder, Hip, Knee Other Specimen (Source) Anatomical Location Collection Method / Collectio n Time Received Time / Laterality Volume Narrative 04/08/2007 10:49 AM CDT Fluoroscopically-guided hip injection of steroid and bupivacaine. The risks and benefits of the procedure were explained to the patient and consent was obtained. The right hip was prepped and draped in standard sterile fashion. A 22-gauge nee dle was advanced into the right hip under fluoroscopic guidance wi th position confirmed by injection of a small amount of Omnipaque 180. 80 mg Kenalog 40 and 4 mL 0.5% bupivacaine was then injected. T here were no complications immediately. [id number] Dictating RADHA NÚÑEZ RADIOLOGIST Procedure Note Radha Franco MD - 12/05/2016Formatt ing of this note might be different from the original. Fluoroscopically-guided hip injection of steroid and bupivacaine. The risks and benefits of the procedure were explained to the patient and consent was obtained. The right hip was prepped and draped in standard sterile fashion. A 22-gauge nee dle was advanced into the right hip under fluoroscopic guidance wi th position confirmed by injection of a small amount of Omnipaque 180. 80 mg Kenalog 40 and 4 mL 0.5% bupivacaine was then injected. T here were no complications immediately. [id number] Dictating RADHA NÚÑEZ RADIOLOGIST Pascual Parker MD RAD FL documented in this encounter Visit Diagnoses Not on filedocumented in this encounter Care Teams Car Shifter Relationship Specialty Start Date End Date Titus Medina MD PCP - General 09/16/1996 03/17/15 documented as of this encounter
--- OUTSIDE RECORDS SUMMARY | 2022-07-30 19:46 | XMS_ITS | Encounter Summary ---
:1945 Author Organization [facility] Address [address] [place] [address] Care Team Providers Name Role Phone Titus Medina MD Primary Care Provider Encounter Details Date Type Department Care Team Description 07/25/2007 Nursing Visit [facility] Ángel Hale, [address] Abdalla MD [address] [place] [address] [place] [address] [phone] (Wo rk) Social History Tobacco Use Types Packs/Day Years Used Date Smoking Tobacco: Never Assessed Sex Assigned at Date Recorded Not on file documented as of this encounter Plan of Treatment Not on filedocumented as of this encounter Visit Diagnoses Not on filedocumented in this encounter Care Teams Shell Assembler Relationship Specialty Start Date End Date Titus Medina MD PCP - General 09/16/1996 03/17/15 documented as of this encounter
--- OUTSIDE RECORDS SUMMARY | 2022-07-30 19:47 | XMS_ITS | Encounter Summary ---
:1945 Author Organization [facility] Address [address] [place] [address] Care Team Providers Name Role Phone Titus Medina MD Primary Care Provider Encounter Details Date Type Department Care Team Description 02/24/2007 Office Visit [facility] Yovani Delarosa MD [address] [place], [place] [address] Social History Tobacco Use Types Packs/Day Years Used Date Smoking Tobacco: Never Assessed Sex Assigned at Date Recorded Not on file documented as of this encounter Progress Notes Yovani Delarosa MD - 02/24/2007 12:01 AM CDT Progress Notes signed by Yovani Delarosa MD at 04/03/07 1619 Author: Yovani Delarosa MD Service: (none) Author Type: Physician Filed: 01/23/111932 Note Time: 02/24/07 0001 Status: Signed Certified Dental Assistant: Yovani Delarosa MD (Physician) NAME: YIMI GARCIA MR#: [id number] ACCT: [id number] VISIT: [id number] DICTATING CLINICIAN: YOVANI DELAROSA MD JOB: [id number] LOC: 3711 CLINIC PROGRESS NOTE DATE OF VISIT: 02/24/2007 SUBJECTIVE: : 1945. CHIEF COMPLAINT: Discomfort in legs. HISTORY OF PRESENT ILLNESS: This 61-year-old woman states that she has pain and discomfort in her right hip radiating down her right thigh both anteriorly and laterally when she walks. She walks at the [facility] about 6 laps and has to stop walking due to pain and fatigue in her right lower extremity. Her left lower extremity does not share as intense a discomfort. She states her legs get tight. She has been seen by me 6 months ago with patellar pain on the right leg which was felt to be patellofemoral syndrome. I had written her a referral for physical therapy. She has undergone physical therapy and states that it has helped quite a bit in her ability to walk, but now her pain is getting worse in the right thigh. PAST MEDICAL HISTORY: Reviewed, shows that she has had symptoms on the right side for many years including a right knee iliotibial band syndrome and a right piriformis syndrome and low back pain in the right. All have been treated with physical therapy. She has had breast reduction surgery. She has sinus problems. CURRENT MEDICATIONS: Include; Astelin, guaifenesin with pseudoephedrine. ADR/ALLERGIES: NONE. 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 REVIEW OF SYSTEMS: Walking over a third of a mile causes distress and weakness. She states that she has lost flexibility in her right leg, right hip, also in her shoulder and neck. She has had worsening in symptoms over the past 2-3 years. Heat and massage make it better. The remainder of the complete review of systems is unremarkable. OBJECTIVE: This pleasant 61-year-old woman is known to me. I have seen as noted 6 months ago. Exam today shows she has tenderness in her right trochanteric bursa greater than left which is moderate to palpation. Range of motion of the left hip is normal. Range of motion of the right hip is quite restricted. She is unable adduct her hip at all. Flexion, abduction, external rotation is also extremely limited and does radiate pain through her groin and into her anterior thigh. Straight leg raising test is negative. She has symmetric reflexes and strength in muscles in her lower extremities. She has no sciatic notch tenderness but she does have some more lateral gluteal tenderness in the right. X-rays were ordered and interpreted by me today. AP pelvis with right lateral hip. INDICATION: Right thigh pain. There is severe degenerative joint disease with loss of joint space and subchondral bone cysts in the right hip joint. The left hip joint appears to be fairly normal. There is a lot of spurring noted around the right femoral acetabular joint. This appears to be a dysplastic femoral head and neck as well. 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 ASSESSMENT: Osteoarthritis right hip. PLAN: I discussed either cortisone injections or follow up for consultation with an orthopaedic surgeon. She was given the name of either Dr. Son Mcknight or Dr. Son Wood for hip replacement discussion. In the meantime, I have sent her to their radiology department for fluoroscopically guided steroid and lidocaine injection into her right hip. JLL:[id number] C: 02/28/07 20:07 DOCUMENT: [id number] documented in this encounter Plan of Treatment Not on filedocumented as of this encounter Procedures Procedure Name Priority Date/Time Associated Diagnosis Comme nts XR PELVIS W RT Routine 02/24/2007 5:31 PM Results for this LATERAL HIP CDT procedure are i n the results section. documented in this encounter Results XR Pelvis W Rt Lateral Hip (02/24/2007 5:31 PM CDT) Anatomical Region Laterality Modality Pelvis, Hip Other Specimen (Source) Anatomical Location Collection Method / Collectio n Time Received Time / Laterality Volume Narrative 02/24/2007 5:31 PM CDT AP PELVIS WITH RIGHT LATERAL HIP: INDICATION: ??Right thigh pain. There is severe degenerative joint disea se with loss of joint space and subchondral bone cysts in the right hip joint. ??The left hip joint appears to be fairly normal. ??The re is a lot of spurring noted around the right femoral acetabular join t. ??This appears to be a dysplastic femoral head and neck as well . 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 Dictating YOVANI CHAVEZ MD Procedure Note Yovani Delarosa - 12/05/2016 AP PELVIS WITH RIGHT LATERAL HIP: INDICATION: Right thigh pain. There is severe degenerative joint disea se with loss of joint space and subchondral bone cysts in the right hip joint. The left hip joint appears to be fairly normal. There is a lot of spurring noted around the right femoral acetabular join t. This appears to be a dysplastic femoral head and neck as well . CONCLUSION: Severe degenerative joint di sease right hip joint with dysplastic femoral head and neck. Dictating YOVANI CHAVEZ MD Yovani RYAN GD documented in this encounter Visit Diagnoses Not on filedocumented in this encounter Care Teams Washing Machine Striper Relationship Specialty Start Date End Date Titus Medina MD PCP - General 09/16/1996 03/17/15 documented as of this encounter
--- OUTSIDE RECORDS SUMMARY | 2022-07-30 19:47 | XMS_ITS | Encounter Summary ---
:1945 Author Organization [facility] Address [address] [place] [address] Care Team Providers Name Role Phone Titus Medina MD Primary Care Provider Encounter Details Date Type Department Care Team Description 09/14/2006 Office Visit [facility] Adi Jones, Therapy PT [address] [place], [place] [address] [address] [place] [address] [phone] (Wo rk) Social History Tobacco Use Types Packs/Day Years Used Date Smoking Tobacco: Never Assessed Sex Assigned at Date Recorded Not on file documented as of this encounter Plan of Treatment Not on filedocumented as of this encounter Visit Diagnoses Not on filedocumented in this encounter Care Teams Pediatric Nephrologist Relationship Specialty Start Date End Date Titus Medina MD PCP - General 09/16/1996 03/17/15 documented as of this encounter
--- OUTSIDE RECORDS SUMMARY | 2022-07-30 19:47 | XMS_ITS | Encounter Summary ---
:1945 Author Organization [facility] Address [address] [place] [address] Care Team Providers Name Role Phone Titus Medina MD Primary Care Provider Encounter Details Date Type Department Care Team Description 08/30/2006 Office Visit [facility] Adi Jones, Therapy PT [address] [place], [place] [address] [address] [place] [address] [phone] (Wo rk) Social History Tobacco Use Types Packs/Day Years Used Date Smoking Tobacco: Never Assessed Sex Assigned at Date Recorded Not on file documented as of this encounter Plan of Treatment Not on filedocumented as of this encounter Visit Diagnoses Not on filedocumented in this encounter Care Teams Forcer Maker Relationship Specialty Start Date End Date Titus Medina MD PCP - General 09/16/1996 03/17/15 documented as of this encounter
--- OUTSIDE RECORDS SUMMARY | 2022-07-30 19:47 | XMS_ITS | Encounter Summary ---
:1945 Author [facility] Address [address] [place] [address] Care Team Providers Name Role Phone Titus Medina MD Primary Care Provider Encounter Details Date Type Department Care Team Description 08/03/2006 Office Visit [facility] [address] Latoya Allison MD [address] [place] [address] [place], [place] [address] (Wo rk) Social History Tobacco Use Types Packs/Day Years Used Date Smoking Tobacco: Never Assessed Sex Assigned at Date Recorded Not on file documented as of this encounter Last Filed Vital Signs Vital Sign Reading Time Taken Comments Blood Pressure 112/78 08/03/2006 7:37 AM ANTHROPOLOGY INSTRUCTOR Pulse - - Temperature - - Respiratory Rate - - Oxygen Saturation - - Inhaled Oxygen Concentration - - Weight 80.3 kg (176 lb 15.8 oz) 08/03/2006 7:37 AM ANTHROPOLOGY INSTRUCTOR C: 80.3kg Height - - Body Mass Index 28.14 07/08/2006 4:10 PM CDT documented in this encounter Progress Notes Latoya Garibay MD - 08/03/2006 12:01 AM CST Progress Notes signed by Latoya Garibay MD at 08/04/06 0923 Author: Latoya Garibay MD Service: (none) Author Type: Physician Filed: 01/23/11 1517 Note Time: 08/03/062014 Status: Signed Bereavement Program Coordinator: Latoya Garibay MD (Physician) NAME: YIMI GARCIA MR#: [id number] ACCT: [id number] VISIT: [id number] DICTATING CLINICIAN: LATYOA GARIBAY MD JOB: [id number] LOC: 414 CLINIC PROGRESS NOTE DATE OF VISIT: 08/03/2006 SUBJECTIVE: Yimi is a 60-year-old female who was last seen over three years ago and has no evidence of inhalant allergies and history of vasomotor rhinitis. She has done well in the past typically with Astelin one or two sprays in each side b.i.d., but this fall with the onset of the change in the weather she is having a lot more problems with congestion at night. We have prescribed Guaifen PSE 600/120 in the past, but she has not been using any of this in the last year or two. OBJECTIVE: VS: BP: 112/78. Ht: 66-1/2 in. Wt: 178 lb. Evaluation exam reveals a 60-year-old female. HEENT: Unremarkable. Turbinates were large, somewhat inflamed with some clear discharge. Pharynx was clear. NECK: Supple. CHEST: Today was clear to auscultation and percussion. The rest of the exam was negative. ASSESSMENT: Vasomotor rhinitis. PLAN: Yimi is having some ongoing issues with nocturnal symptoms, particularly this time of year which is not unusual for vasomotor rhinitis. We encouraged her to restart the Guaifen PSE 600/120 but try just taking a half a tablet in the morning and half a tablet around 5 p.m. This should be a low enough dose that it will not affect her blood pressure and should not cause insomnia, but it significantly would help the Astelin do its job and keep the sinuses in control. Will see her back in a year for followup. RAW:[id number] C: 08/03/06 09:19 DOCUMENT: [id number] ROPOLOGY INSTRUCTOR documented in this encounter Plan of Treatment Not on filedocumented as of this encounter Visit Diagnoses Not on filedocumented in this encounter Care Teams Appraisal Technician Relationship Specialty Start Date End Date Titus Medina MD PCP - General 09/16/1996 03/17/15 documented as of this encounter
--- OUTSIDE RECORDS SUMMARY | 2022-07-30 19:47 | XMS_ITS | Encounter Summary ---
:1945 Author Organization [facility] Address [address] [place] [address] Care Team Providers Name Role Phone Titus Medina MD Primary Care Provider Encounter Details Date Type Department Care Team Description 04/16/2006 PN Conversion Only [facility] [address] R ad[address] [place], [place] [address] Social History Tobacco Use Types Packs/Day Years Used Date Smoking Tobacco: Never Assessed Sex Assigned at Date Recorded Not on file documented as of this encounter Plan of Treatment Not on filedocumented as of this encounter Procedures Procedure Name Priority Date/Time Associated Diagnosis Comme nts MM MAMMOGRAM Routine 04/16/2006 7:41 AM Results f or this SCREENING W CAD CDT procedure ar e in the results section. documented in this encounter Results MM Mammogram Screening W CAD (04/16/2006 7:41 AM CDT) Anatomical Region Laterality Modality Breast Bilateral Mammography Specimen (Source) Anatomical Location Collection Method / Collectio n Time Received Time / Laterality Volume Impressions 04/19/2006 11:35 AM CDT : BILATERAL BREASTS - Category 1 Negative, no evidence of malignancy. Nor mal interval follow-up is recommended in 12 months. OVERALL ASSESSMENT - NEGATIVE END OF IMPRESSION Dictating DIO EDWARDS RADIOLOGIST Narrative 04/19/2006 11:35 AM CDT Comparison is made to films from 09/26/2001. ??There is no significant interval change. Bilateral Breast Findings: There are scattered fibroglandular densi ties. ??No significant masses, calcifications or other abnormalities ar e seen. Procedure Note Dio Padron - 12/05/2016Formattin g of this note might be different from the original. Comparison is made to films from 001. There is no significant interval change. Bilateral Breast Findings: There are scattered fibroglandular densi ties. No significant masses, calcifications or other abnormalities ar e seen. IMPRESSION : BILATERAL BREASTS - Category 1 Negative, no evidence of malignancy. Nor mal interval follow-up is recommended in 12 months. OVERALL ASSESSMENT - NEGATIVE END OF IMPRESSION Dictating DIO EDWARDS RADIOLOGIST Margot Pavon MD RAD VESNA documented in this encounter Visit Diagnoses Not on filedocumented in this encounter Care Teams Director Presales Relationship Specialty Start Date End Date Titus Medina MD PCP - General 09/16/1996 03/17/15 documented as of this encounter
--- OUTSIDE RECORDS SUMMARY | 2022-07-30 19:47 | XMS_ITS | Encounter Summary ---
:1945 [facility] Address [address] [place] [address] Care Team Providers Name Role Phone Titus Medina MD Primary Care Provider Encounter Details Date Type Department Care Team Description 05/04/2006 PN Conversion Only [facility] Social History Tobacco Use Types Packs/Day Years Used Date Smoking Tobacco: Never Assessed Sex Assigned at Date Recorded Not on file documented as of this encounter Plan of Treatment Not on filedocumented as of this encounter Visit Diagnoses Not on filedocumented in this encounter Care Teams Ict Trainer Relationship Specialty Start Date End Date Titus Medina MD PCP - General 09/16/1996 03/17/15 documented as of this encounter
--- OUTSIDE RECORDS SUMMARY | 2022-07-30 19:47 | XMS_ITS | Encounter Summary ---
:1945 Author Organization [facility] Address [address] [place] [address] Care Team Providers Name Role Phone Titus Medina MD Primary Care Provider Encounter Details Date Type Department Care Team Description 08/24/2006 Office Visit [facility] Adi Jones, [facility] [address] [facility] [address] [place], [place] [address] [place] [address] [phone] (Wo rk) Social History Tobacco Use Types Packs/Day Years Used Date Smoking Tobacco: Never Assessed Sex Assigned at Date Recorded Not on file documented as of this encounter Plan of Treatment Not on filedocumented as of this encounter Visit Diagnoses Not on filedocumented in this encounter Care Teams Family Manager Relationship Specialty Start Date End Date Titus Medina MD PCP - General 09/16/1996 03/17/15 documented as of this encounter
--- OUTSIDE RECORDS SUMMARY | 2022-07-30 19:47 | XMS_ITS | Encounter Summary ---
:1945 Author Organization [facility] Address [address], [place] [address] Care Team Providers Name Role Phone Titus Medina MD Primary Care Provider Reason for Visit Reason Comments Other Encounter Details Date Type Department Care Team Description 12/03/2006 Telephone [facility], Message Other [address] [place] [address] Social History Tobacco Use Types Packs/Day Years Used Date Smoking Tobacco: Never Assessed Sex Assigned at Date Recorded Not on file documented as of this encounter Progress Notes Manuela Rice RN - 12/03/2006 11:35 AM CST Phone Note filed by Manuela Rice RN at 01/20/11 1641 Author: Manuela Rice RN Service: (none) Author Type: Registered Nurse Filed: 01/20/11 1641 Note Time: 12/03/06 1135 Status: Signed Equity Analyst: Manuela Rice RN (Registered Nurse) Patient left message on voice mail requesting letter be written by so she can cl[facility] services on her flex account for accupuncture,massage therapy and physical therapy. Patient states MD has written letter for the past 2 years and will know what this is about. Contacted patient and asked if ok to address [facility] 12/07/06. Patient states that is fine and would like letter mailed to her home address. Created on 03Dec2006 11:35am by MANUELA RICE On 10Dec2006 11:10am JATINDER DAVENPORT wrote: Letter written, please mail. Acknowledged by JATINDER DAVENPORT on 11:10am On 10Dec2006 1:32pm KENNEDY BRITO wrote: mailed to patient. HOLDER documented in this encounter Plan of Treatment Not on filedocumented as of this encounter Visit Diagnoses Not on filedocumented in this encounter Care Teams Auto Radio Mechanic Relationship Specialty Start Date End Date Titus Medina MD PCP - General 09/16/1996 03/17/15 documented as of this encounter
--- OUTSIDE RECORDS SUMMARY | 2022-07-30 19:47 | XMS_ITS | Encounter Summary ---
:1945 Author Organization [facility] Address [address] [place] [address] Care Team Providers Name Role Phone Titus Medina MD Primary Care Provider Reason for Visit Reason Comments Other Encounter Details Date Type Department Care Team Description 12/03/2006 Telephone [facility] [address] [facility], Message Other [address] [place], [place] [id number] Social History Tobacco Use Types Packs/Day Years Used Date Smoking Tobacco: Never Assessed Sex Assigned at Date Recorded Not on file documented as of this encounter Progress Notes Isabell Bliss - 12/03/2006 9:10 AM CST Phone Note filed by Isabell Bliss RN at 01/20/11 1640 Author: Isabell Bliss RN Service: (none) Author Type: (none) Filed: 01/20/11 1640 Note Time: 12/03/0610 Status: Signed Dynamometer Repairer: Imr Conversion RAW pt. possible sinus infection. sinus pressure/pain. bright green nasal drng. fever of 101. sx for about one week. coughing up green as well. cough doesn't keep up at night. meds: hydroxzine 1 bid, astelin 2sp bid, guiafen 1 bid.allergies: none. pharm: kathe manzanares [facility]. pt: [phone] ok to lm. possible antibitics? Created on 03Dec2006 9:10am by ISABELL LARIOS On 03Dec2006 9:19am LATOYA FINCH wrote: Ok to start Septra DS 1 tab bid x 10 days Acknowledged by LATOYA FINCH on 9:19am On 03Dec2006 9:26am ISABELL LARIOS wrote: rx faxed. pt phone busy, unable to leave message. will try back later On 03Dec2006 9:28am ISABELL LARIOS wrote: pt notified SIZER documented in this encounter Plan of Treatment Not on filedocumented as of this encounter Visit Diagnoses Not on filedocumented in this encounter Care Teams Senior Executive Compensation Analyst Relationship Specialty Start Date End Date Titus Medina MD PCP - General 09/16/1996 03/17/15 documented as of this encounter
--- OUTSIDE RECORDS SUMMARY | 2022-07-30 19:47 | XMS_ITS | Encounter Summary ---
:1945 Author Organization [facility] Address [address] [place] [address] Care Team Providers Name Role Phone Titus Medina MD Primary Care Provider Reason for Visit Reason Comments Other Encounter Details Date Type Department Care Team Description 11/30/2006 Telephone [facility] Jatinder Hi MD Other [address] [place] [address] [place] [address] [place], [place] [address] (Wo rk) Social History Tobacco Use Types Packs/Day Years Used Date Smoking Tobacco: Never Assessed Sex Assigned at Date Recorded Not on file documented as of this encounter Progress Notes Ramin Barros RN - 11/30/2006 1:38 PM CST Phone Note filed by Ramin Barros RN at 01/20/11 0804 Author: Ramin Barros RN Service: (none) Author Type: Registered Nurse Filed: 01/20/11 5528 Note Time: 11/30/068 Status: Signed Rn Perinatal: Ramin Barros RN (Registered Nurse) Patient left message on voice mail with a request to get a prescription for Valtrex as she has a cold sore on her lip and has had this in the past. I do not see this on her med list but she states she has had this problem in the past. please advise and if OK fax to [facility] # [phone]. Questions [phone]. Created on 30Nov2006 1:38pm by RAMIN BARROS On 30Nov2006 2:11pm JATINDER DAVENPORT wrote: faxed Acknowledged by JATINDER DAVENPORT on 2:11pm ACE CLEANER documented in this encounter Plan of Treatment Not on filedocumented as of this encounter Visit Diagnoses Not on filedocumented in this encounter Care Teams Director Outcomes Relationship Specialty Start Date End Date Titus Medina MD PCP - General 09/16/1996 03/17/15 documented as of this encounter
--- OUTSIDE RECORDS SUMMARY | 2022-07-30 19:47 | XMS_ITS | Encounter Summary ---
:1945 Author Organization [facility] Address [address] [place] [address] Care Team Providers Name Role Phone Titus Medina MD Primary Care Provider Encounter Details Date Type Department Care Team Description 10/15/2006 Office Visit [place] [facility] Adi [facility], Therapy PT [address] [facility] [place], [place] [address] [place] [address] [phone] (Wo rk) Social History Tobacco Use Types Packs/Day Years Used Date Smoking Tobacco: Never Assessed Sex Assigned at Date Recorded Not on file documented as of this encounter Plan of Treatment Not on filedocumented as of this encounter Visit Diagnoses Not on filedocumented in this encounter Care Teams Child Care Education Coordinator Relationship Specialty Start Date End Date Titus Medina MD PCP - General 09/16/1996 03/17/15 documented as of this encounter
--- OUTSIDE RECORDS SUMMARY | 2022-07-30 19:47 | XMS_ITS | Encounter Summary ---
:1945 Author Organization [facility] Address [address] [place] [address] Care Team Providers Name Role Phone Titus Medina MD Primary Care Provider Encounter Details Date Type Department Care Team Description 05/04/2006 Office Visit [facility] [id number] Airam Hanks MD [address] [place] [address] [place], [place] [id number] Social History Tobacco Use Types Packs/Day Years Used Date Smoking Tobacco: Never Assessed Sex Assigned at Date Recorded Not on file documented as of this encounter Progress Notes Airam Braun MD - 05/04/2006 12:01 AM CDT Progress Notes signed by Airam Braun MD at 07/07/06 1434 Author: Airam Braun MD Service: (none) Author Type: Physician Filed: 01/23/11 1332 Note Time: 05/04/06 0001 Status: Signed Gantry Crane Operator: Airam Braun MD (Physician) NAME: YIMI GARCIA MR: [id number] ACCT: [id number] VISIT: [id number] DICTATING CLINICIAN: AIRAM BRAUN MD JOB: [id number] LOC: 458 CLINIC PROGRESS NOTE DATE OF VISIT: 05/04/2006 SUBJECTIVE: The scar on the left side is still wider than is acceptable for her with the way her hair parts. OBJECTIVE: She is getting some hair growth through it. ASSESSMENT: Postop scarring. PLAN: She is getting some hair growth through it. We could try grafting. We could try partial excision so that some of the scar is intact. She will consider those options. MC:[id number] C: 06/28/06 16:56 DOCUMENT: [id number] documented in this encounter Plan of Treatment Not on filedocumented as of this encounter Visit Diagnoses Not on filedocumented in this encounter Care Teams Hand Leather Trimmer Relationship Specialty Start Date End Date Titus Medina MD PCP - General 09/16/1996 03/17/15 documented as of this encounter
--- OUTSIDE RECORDS SUMMARY | 2022-07-30 19:47 | XMS_ITS | Encounter Summary ---
:1945 Author Organization [facility] Address [address] [place] [address] Care Team Providers Name Role Phone Titus Medina MD Primary Care Provider Reason for Visit Reason Comments Other Encounter Details Date Type Department Care Team Description 11/09/[address] [facility], Message Other [address] [place], [place] [address] Social History Tobacco Use Types Packs/Day Years Used Date Smoking Tobacco: Never Assessed Sex Assigned at Date Recorded Not on file documented as of this encounter Progress Notes Center, Message - 11/09/2006 4:27 PM CST Phone Note filed by Comply Serve at 01/20/11 1522 Author: Comply Serve Service: (none) Author Type: (none) Filed: 01/20/11 1522 Note Time: 11/09/067 Status: Signed Salary And Wage Administrator: Comply Serve Caller Name/Relationship:PHARMACY Reason for Call:refill Callback Phone #:[phone] OK to leave detailed message on voicemail?n Created on 09Nov2006 4:27pm by SUSAN DOUGLAS On 10Nov2006 9:43am KENNEDY BRITO wrote: Called and spoke with a shorty at [facility] [employer] [facility] about the Hydroxyzine which she has refills until 07/10 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
--- OUTSIDE RECORDS SUMMARY | 2022-07-30 19:47 | XMS_ITS | Encounter Summary ---
:1945 Author Organization [facility] Address [address] [place] [address] Care Team Providers Name Role Phone Titus Medina MD Primary Care Provider Encounter Details Date Type Department Care Team Description 09/19/2006 Office Visit [facility] 38[address] Urgent Elisha chong, Care Gómez Sorenson MD [address] [facility] [address] [place] [address] [place], [place] [address] (Wo rk) Social History Tobacco Use Types Packs/Day Years Used Date Smoking Tobacco: Never Assessed Sex Assigned at Date Recorded Not on file documented as of this encounter Last Filed Vital Signs Vital Sign Reading Time Taken Comments Blood Pressure 130/70 09/19/2006 10:14 AM SPORTING GOODS SALESPERSON Pulse 78 09/19/2006 10:14 AM SPORTING GOODS SALESPERSON Temperature 36.6 ??C (97.9 ??F) 09/19/2006 10:14 C: 36.6 C S imultaneous AM SPORTING GOODS SALESPERSON filing. User may not have seen previo us data. Respiratory Rate 16 09/19/2006 10:14 AM SPORTING GOODS SALESPERSON Oxygen Saturation - - Inhaled Oxygen - - Concentration Weight - - Height - - Body Mass Index - - documented in this encounter Progress Notes Gómez Ruiz MD - 09/19/2006 12:01 AM CST Progress Notes signed by Gómez Starr MD at 10/01/06 0410 Author: Yas Starr MD Service: (none) Author Type: Physician Filed: 01/23/11 1615 Note Time: 09/19/06 0001 Status: Signed Rigging Supervisor: Yas Starr MD (Physician) NAME: YIMI GARCIA MR#: [id number] ACCT: [id number] VISIT: [id number] DICTATING CLINICIAN: Yas Starr MD JOB: [id number] LOC: 420 CLINIC PROGRESS NOTE DATE OF VISIT: 09/19/2006 SUBJECTIVE: A 61-year-old woman came here, could not get the contact lens out of right eye for last evening, now is hurting and irritating. Does have a little bit itching too. No other associated symptom, no blurred vision. OBJECTIVE: VS: BP: -. T: -. P: -. R: . O2 sat: -% on room air. Does have very minimal conjunctival irritation in right eye and after some search, I find out that the contact is folded stuck behind the upper lid. Was able to take it out. I did not appreciate any corneal abrasion. Did have minimal conjunctival irritation right in the upper part of the eyeball and upper eyelid. No periorbital swelling and eye movement is not painful. ASSESSMENT: Removing retained contact lens/foreign body from right eye and conjunctival irritation and probably abrasion. PLAN: Treat this with Tobrex eyedrop every 4 hours while awake and have follow up if there is any further problem. [facility]:[id number] C: 09/20/06 13:11 DOCUMENT: [id number] TING GOODS SALESPERSON documented in this encounter Plan of Treatment Not on filedocumented as of this encounter Visit Diagnoses Not on filedocumented in this encounter Care Teams Rn Digestive Relationship Specialty Start Date End Date Titus Medina MD PCP - General 09/16/1996 03/17/15 documented as of this encounter
--- OUTSIDE RECORDS SUMMARY | 2022-07-30 19:47 | XMS_ITS | Encounter Summary ---
:1945 Author Organization [facility] Address [address] [place] [address] Care Team Providers Name Role Phone Titus Medina MD Primary Care Provider Encounter Details Date Type Department Care Team Description 09/24/2006 Office Visit [place] [facility] Adi [facility], Therapy PT [address] [facility] [address] [place], [place] [address] 4 [place] [address] [phone] (Wo rk) Social History Tobacco Use Types Packs/Day Years Used Date Smoking Tobacco: Never Assessed Sex Assigned at Date Recorded Not on file documented as of this encounter Plan of Treatment Not on filedocumented as of this encounter Visit Diagnoses Not on filedocumented in this encounter Care Teams Barrel Cleaner Relationship Specialty Start Date End Date Titus Medina MD PCP - General 09/16/1996 03/17/15 documented as of this encounter
--- OUTSIDE RECORDS SUMMARY | 2022-07-30 19:47 | XMS_ITS | Encounter Summary ---
:1945 Author Organization [facility] Address [address] [place] [address] Care Team Providers Name Role Phone Titus Medina MD Primary Care Provider Reason for Visit Reason Comments Other Encounter Details Date Type Department Care Team Description 12/02/2006 Telephone [facility] 38[address] Ear, Ramon Ariza MD Other Nose, and Throat [address] [facility] [place] [address] [place], [place] [address] [phone] Social History Tobacco Use Types Packs/Day Years Used Date Smoking Tobacco: Never Assessed Sex Assigned at Date Recorded Not on file documented as of this encounter Progress Notes Parul Torres RN - 12/02/2006 8:24 AM CST Phone Note filed by Parul Torres RN at 01/20/11 3974 Author: Parul Torres RN Service: (none) Author Type: Registered Nurse Filed: 01/20/11 8919 Note Time: 12/02/06823 Status: Signed Installation Superintendent: Parul Torres RN (Registered Nurse) pt calling with sinus infection requesting meds. Pt last visit was 09-07. Pt called and message left that she needs to call Primary doctor or go to urgent care for meds. Pt informed it has been over one year since last visit. Created on 02Dec2006 8:24am by PARUL TORRES F Acknowledged by RAMON ARIZA on 11:13am FIC DIVISION COMMANDING OFFICER documented in this encounter Plan of Treatment Not on filedocumented as of this encounter Visit Diagnoses Not on filedocumented in this encounter Care Teams Game Manager Relationship Specialty Start Date End Date Titus Medina MD PCP - General 09/16/1996 03/17/15 documented as of this encounter
--- OUTSIDE RECORDS SUMMARY | 2022-07-30 19:47 | XMS_ITS | Encounter Summary ---
:1945 Author Organization [facility] Address [address] [place] [address] Care Team Providers Name Role Phone Titus Medina MD Primary Care Provider Encounter Details Date Type Department Care Team Description 04/09/2006 Office Visit [place] [facility] Adi Jones, Therapy PT [address] [facility] [place], [place] [address] 4 [place] [address] [phone] (Wo rk) Social History Tobacco Use Types Packs/Day Years Used Date Smoking Tobacco: Never Assessed Sex Assigned at Date Recorded Not on file documented as of this encounter Plan of Treatment Not on filedocumented as of this encounter Visit Diagnoses Not on filedocumented in this encounter Care Teams Bulking Machine Operator Relationship Specialty Start Date End Date Titus Medina MD PCP - General 09/16/1996 03/17/15 documented as of this encounter
--- OUTSIDE RECORDS SUMMARY | 2022-07-30 19:47 | XMS_ITS | Encounter Summary ---
:1945 Author Organization [facility] Address [address] [place] [address] Care Team Providers Name Role Phone Titus Medina MD Primary Care Provider Encounter Details Date Type Department Care Team Description 03/02/2007 Hospital Encounter MUSLIM CONVERSION Pascual Parker MD Social History Tobacco [...] UNKNOWN MEDICATION Indications: PN: 0 04/29/2004 10/08/2008 valACYclovir (AKA Take 2 tablets by 8 0 11/30/2006 03/10/2007 VALTREX) 1 G tablet mouth 2 times daily. LW Comment:for cold sores documented as of this encounter Plan of Treatment Not on filedocumented as of this encounter Visit Diagnoses Not on filedocumented in this encounter Care Teams Assembler Movement Relationship Specialty Start Date End Date Titus Medina MD PCP - General 09/16/1996 03/17/15 documented as of this encounter
--- OUTSIDE RECORDS SUMMARY | 2022-07-30 19:47 | XMS_ITS | Encounter Summary ---
:1945 [facility] Address [address] [place] [address] Care Team Providers Name Role Phone Titus Medina MD Primary Care Provider Encounter Details Date Type Department Care Team Description 07/08/2006 PN Conversion Only SIKHISM CONVERSION Margot Pavon MD [address] [place] [address] (Wo rk) Social History Tobacco Use Types Packs/Day Years Used Date Smoking Tobacco: Never Assessed Sex Assigned at Date Recorded Not on file documented as of this encounter Plan of Treatment Not on filedocumented as of this encounter Procedures Procedure Name Priority Date/Time Associated Comments Diagnosis ANATOMICAL PATH Routine 07/08/2006 11:59 AM Resul ts for this LIQUID BASED CDT procedure are i n the results section. documented in this encounter Results Pap Smear (07/08/2006 11:59 AM CDT) [facility] gist Method Time Signature PAP Smear SEE TEXT No normal HP CONVERSION Liquid Based range Comment: Patient: YIMI GARCIA ? CERVICAL CYTOLOGY REPORT Pathology # ??[id number] ?Date Obtained: [id number] ? Date Received: [id number] CYTOLOGIC IMPRESSION: Negative for intraepithelial lesion or m alignancy. Verified 07/19/06 by: ??JLD ?(electronic signature) ? [place]ERICK TIONAL DATA LMP: ?CLINICAL QUALITY ASSURANCE ASSOCIATE CLINICAL HIST LIQUID BASED PAP CERVICAL SPECIMEN ADEQUACY: ?? Satisfactory. ENDOCERVICAL CELLS: ??Absent; patient is post-menopausal. Specimen (Source) Anatomical Collection Method Collection Time Re ceived Time Location / / Volume Laterality 07/08/2006 11:59 AM CDT Margot Pavon MD LAB_1 Performing Organization Address City/State/ZIP Code Phon e Number HP CONVERSION documented in this encounter Visit Diagnoses Not on filedocumented in this encounter Care Teams Community Development Director Relationship Specialty Start Date End Date Titus Medina MD PCP - General 09/16/1996 03/17/15 documented as of this encounter
--- OUTSIDE RECORDS SUMMARY | 2022-07-30 19:47 | XMS_ITS | Encounter Summary ---
:1945 Author Organization [facility] Address [address] [place] [address] Care Team Providers Name Role Phone Titus Medina MD Primary Care Provider Encounter Details Date Type Department Care Team Description 04/15/2006 Office Visit [facility] 3850 Urgent Jatinder Parmar [place] Care [address] [place] [address] [phone] (Wo rk) Social History Tobacco Use Types Packs/Day Years Used Date Smoking Tobacco: Never Assessed Sex Assigned at Date Recorded Not on file documented as of this encounter Last Filed Vital Signs Vital Sign Reading Time Taken Comments Blood Pressure 126/72 04/15/2006 8:19 AM CDT Pulse 60 04/15/2006 8:19 AM CDT Temperature 37.1 ??C (98.8 ??F) 04/15/2006 8:19 AM CDT C: 37 .1 C Respiratory Rate 14 04/15/2006 8:19 AM CDT Oxygen Saturation - - Inhaled Oxygen Concentration - - Weight - - Height - - Body Mass Index - - documented in this encounter Progress Notes Jatinder Poole MD - 04/15/2006 12:01 AM CDT Progress Notes signed by Jatinder Poole MD at 05/20/06 1020 Author: Jatinder Poole MD Service: (none) Author Type: Physician Filed: 01/23/11 1311 Note Time: 04/15/062014 Status: Signed Flat Polisher: Jatinder Poole MD (Physician) NAME: YIMI GARCIA MR: [id number] ACCT: [id number] VISIT: [id number] DICTATING CLINICIAN: JATINDER POOLE MD JOB: [id number] CLINIC PROGRESS NOTE DATE OF VISIT: 04/15/2006 SUBJECTIVE: : 1955 Yimi is a 60-year-old female comes in complaining of a sliver on the volar side of her left index finger that she sustained yesterday when picking up a tree branch in her yard. She attempted to get it out last night using alcohol, tweezers, and a needle but was unsuccessful. She presents today to have it removed. She describes it as painful. There has been no oozing or weeping from it. There is a little bit of redness around it, but not too bad. The last tetanus was in 1998. MEDICATIONS: Reviewed in LastWord. ADR/ALLERGIES: REVIEWED IN LASTWORD. OBJECTIVE: VS: BP: 126/72. T: 97. P: 60. R: 14. A nontoxic 60-year-old. Left index finger has a visible dark, narrow, foreign body, just underneath the skin surface. Looks pretty superficial in a horizontal fashion. The foreign body is about 3-4 mm long and very narrow. There is erythema surrounding it in a rincon about 5 mm in diameter. There is no exudate. No lymphangitic streaking. The sliver is distal to the DIP. The area is prepped with alcohol, and using a sterile 20-gauge needle, I was able to elevate the 1 edge of it, which appeared to be the entry point. I then grasped it with a sterile foreign body forceps, and it was easily removed. The area was dressed with bacitracin, a Band-Aid, and wound care instructions were given. ASSESSMENT: 1. Puncture wound, left index finger. 2. Foreign body, left index finger, removed. PLAN: Opted to put her on cephalexin for 2 days because of the time frame, and because it looks a little irritated today. Instructions for wound care were discussed and reasons to follow up also discussed. MKB:[id number] C: 04/16/06 05:55 DOCUMENT: [id number] documented in this encounter Plan of Treatment Not on filedocumented as of this encounter Visit Diagnoses Not on filedocumented in this encounter Care Teams Corrugator Machine Operator Relationship Specialty Start Date End Date Titus Medina MD PCP - General 09/16/1996 03/17/15 documented as of this encounter
--- OUTSIDE RECORDS SUMMARY | 2022-07-30 19:47 | XMS_ITS | Encounter Summary ---
:1945 Author Organization [facility] Address [address] [place] [address] Care Team Providers Name Role Phone Titus Medina MD Primary Care Provider Encounter Details Date Type Department Care Team Description 10/26/2006 Office Visit [place] [facility] Adi Jones, Therapy PT [address] [facility] [address] [place], [place] [address] 4 [place] [address] [phone] (Wo rk) Social History Tobacco Use Types Packs/Day Years Used Date Smoking Tobacco: Never Assessed Sex Assigned at Date Recorded Not on file documented as of this encounter Plan of Treatment Not on filedocumented as of this encounter Visit Diagnoses Not on filedocumented in this encounter Care Teams Pest Control Pilot Relationship Specialty Start Date End Date Titus Medina MD PCP - General 09/16/1996 03/17/15 documented as of this encounter
--- OUTSIDE RECORDS SUMMARY | 2022-07-30 19:47 | XMS_ITS | Encounter Summary ---
:1945 Author Organization [facility] Address [address] [place] [address] Care Team Providers Name Role Phone Titus Medina MD Primary Care Provider Encounter Details Date Type Department Care Team Description 12/10/2006 Patient Financial Services Specialist Only [place] [facility] Margot Pavon MD [facility] [address] [facility] [address] [place] [address] [phone] Social History Tobacco Use Types Packs/Day Years Used Date Smoking Tobacco: Never Assessed Sex Assigned at Date Recorded Not on file documented as of this encounter Progress Notes Margot Pavon MD - 12/10/2006 12:01 AM CST Progress Notes signed by Margot Pavon MD at 12/10/06 1110 Author: Margot Pavon MD Service: (none) Author Type: Physician Filed: 01/23/11 1752 Note Time: 12/10/06 0001 Status: Signed Brazing Furnace Feeder: Margot Pavon MD (Physician) December 10, 2006 RE: Ramona Sheikh 1945 Ms. Sheikh has chronic pain and has medical reason to have acupuncture, therapeutic massage, and physical therapy. She should be allowed to use funds from her [employer] &/or eligible other funds to pay for these services. Please consider this letter applicable throughout 2006. Thank you. Sincerely, Margot Pavon MD ASS POWER PLANT SUPERINTENDENT documented in this encounter Plan of Treatment Not on filedocumented as of this encounter Visit Diagnoses Not on filedocumented in this encounter Care Teams Manager Enterprise Relationship Specialty Start Date End Date Titus Medina MD PCP - General 09/16/1996 03/17/15 documented as of this encounter
--- OUTSIDE RECORDS SUMMARY | 2022-07-30 19:47 | XMS_ITS | Encounter Summary ---
:1945 Author Organization [facility] Address [address] [place] [address] Care Team Providers Name Role Phone Titus Medina MD Primary Care Provider Encounter Details Date Type Department Care Team Description 08/09/2006 [facility] Visit [facility] 3931 Yovani Crump MD Orthopedics 3931 [place] [address] Social History Tobacco Use Types Packs/Day Years Used Date Smoking Tobacco: Never Assessed Sex Assigned at Date Recorded Not on file documented as of this encounter Progress Notes Yovani Delarosa MD - 08/09/2006 12:01 AM CST Progress Notes signed by Yovani Delarosa MD at 09/20/06 1308 Author: Yovani Delarosa MD Service: (none) Author Type: Physician Filed: 01/23/11 1525 Note Time: 08/09/06 0001 Status: Signed Warning Analyst: Yovani Delarosa MD (Physician) NAME: YIMI GARCIA MR#: [id number] ACCT: [id number] VISIT: [id number] DICTATING CLINICIAN: YOVANI DELAROSA MD JOB: [id number] LOC: 211 CLINIC PROGRESS NOTE DATE OF VISIT: 08/09/2006 SUBJECTIVE: : 1945. CHIEF COMPLAINT: Right knee pain. HISTORY OF PRESENT ILLNESS: This 60-year-old woman has had about 1 month of pain in her right knee. She began using a new weight machine for leg lifts at the [facility]. The machine was explained to her. She was able to use it without pain initially, but the same night that she started using it, she developed pain that was difficult to fall sleep while lying in bed. The pain is in the region of the patellar tendon, just inferior to the patella. There is also some pain that wraps around laterally. She waited a couple of weeks before using that machine again, and when she used it again, the pain came back worse. She was trying both leg lifts and curls with the weight machines. She also uses a stationary bike. It seems to generate more pain with these activities. She walked around [facility] like she usually does, and at the 2-mile point, she developed pain again. The patient denies instability or crepitus, denies swelling, denies other specific knee injuries. PAST MEDICAL HISTORY: The patient has had right knee iliotibial band syndrome as well as right piriformis syndrome and low back pain on the right, which have all been treated with physical therapy. CURRENT MEDICATIONS: Ibuprofen 600 mg at night and sulindac. ADR/ALLERGIES: NONE. 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 REVIEW OF SYSTEMS: There has been no instability, crepitus, swelling, or mechanical symptoms. OBJECTIVE: This pleasant 60-year-old woman has tenderness along the inferior pole of the right patella. There is no effusion. There is no crepitus palpable. Collateral ligaments are stable. Cristhian's test is negative. There is a negative drawer sign. Range of motion is full. There is no tenderness in the region of the pes anserine bursa. X-rays of her knees were obtained and interpreted by me today. They do show signs of some early spur formation in the patellofemoral joint. ASSESSMENT: Patellofemoral syndrome, right knee. PLAN: I discussed at length non-aggressive exercises to strengthen the thigh muscles. I have also written her a referral for physical therapy for further evaluation and strengthening of her kinetic chain on the right leg. She will follow up p.r.n. worse, if she would need cortisone injection, etc. IMPRESSION: Patellofemoral syndrome, right knee. JLL:[id number] C: 08/11/06 18:41 DOCUMENT: [id number] OTREATER OPERATOR documented in this encounter Plan of Treatment Not on filedocumented as of this encounter Procedures Procedure Name Priority Date/Time Associated Diagnosis Comme nts XR KNEE RT 3 VIEWS Routine 08/09/2006 2:16 PM Res ults for this HYDROTREATER OPERATOR procedure are i n the results section. XR KNEE LT 2 VIEWS Routine 08/09/2006 2:15 PM Res ults for this HYDROTREATER OPERATOR procedure are i n the results section. documented in this encounter Results XR Knee Rt 3 Views (08/09/2006 2:16 PM HYDROTREATER OPERATOR) Anatomical Region Laterality Modality Lower Extremity, Knee Other Specimen (Source) Anatomical Location Collection Method / Collectio n Time Received Time / Laterality Volume Impressions 08/09/2006 2:16 PM HYDROTREATER OPERATOR : ??Limited study. ??No fractures or dislocations. [id number] Dictating ÁNGEL HUNT MD Narrative 08/09/2006 2:16 PM HYDROTREATER OPERATOR COMPARISON EXAM: ??None. FINDINGS: ??Frontal views of both knees while upright, sunrise of both knees, and a lateral view of the right k nee only are submitted for interpretation. ??Normal alignment and m ineralization. ??No fractures or dislocations. ??No definite right kne e joint effusion. ??The soft tissues are unremarkable. ??No significa nt degenerative change. Procedure Note Ángel Alcantar MD - 12/05/2016Formatti ng of this note might be different from the original. COMPARISON EXAM: None. FINDINGS: Frontal views of both knees wh ile upright, sunrise of both knees, and a lateral view of the right k nee only are submitted for interpretation. Normal alignment and min eralization. No fractures or dislocations. No definite right knee joint effusion. The soft tissues are unremarkable. No significant degenerative change. IMPRESSION : Limited study. No fractures or disloca tions. [id number] Dictating ÁNGEL HUNT MD Yovani Delarosa MD RAD GD XR Knee Lt 2 Views (08/09/2006 2:15 PM HYDROTREATER OPERATOR) Anatomical Region Laterality Modality Lower Extremity, Knee Other Specimen (Source) Anatomical Location Collection Method / Collectio n Time Received Time / Laterality Volume Impressions 08/09/2006 2:15 PM HYDROTREATER OPERATOR : ??Limited study. ??No fractures or dislocations. [id number] Dictating ÁNGEL HUNT MD Narrative 08/09/2006 2:15 PM HYDROTREATER OPERATOR COMPARISON EXAM: ??None. FINDINGS: ??Frontal views of both knees while upright, sunrise of both knees, and a lateral view of the right k nee only are submitted for interpretation. ??Normal alignment and m ineralization. ??No fractures or dislocations. ??No definite right kne e joint effusion. ??The soft tissues are unremarkable. ??No significa nt degenerative change. Procedure Note Ángel Alcantar MD - 12/05/2016Formatti ng of this note might be different from the original. COMPARISON EXAM: None. FINDINGS: Frontal views of both knees wh ile upright, sunrise of both knees, and a lateral view of the right k nee only are submitted for interpretation. Normal alignment and min eralization. No fractures or dislocations. No definite right knee joint effusion. The soft tissues are unremarkable. No significant degenerative change. IMPRESSION : Limited study. No fractures or disloca tions. [id number] Dictating ÁNGEL HUNT MD Yovani Delarosa MD RAD GD documented in this encounter Visit Diagnoses Not on filedocumented in this encounter Care Teams Bucket Turner Relationship Specialty Start Date End Date Titus Medina MD PCP - General 09/16/1996 03/17/15 documented as of this encounter
--- OUTSIDE RECORDS SUMMARY | 2022-07-30 19:48 | XMS_ITS | Encounter Summary ---
:1945 [facility] Address [address], [place] [address] Care Team Providers Name Role Phone Titus Medina MD Primary Care Provider Reason for Visit Reason Comments Other Encounter Details Date Type Department Care Team Description 02/12/2006 Telephone [facility], Message Other [address] , [address] [place] [address] Social History Tobacco Use Types Packs/Day Years Used Date Smoking Tobacco: Never Assessed Sex Assigned at Date Recorded Not on file documented as of this encounter Progress Notes Salma Barros RN - 02/12/2006 4:53 PM CDT Phone Note filed by Salma Barros RN at 01/20/11357 Author: Salma Barros RN Service: (none) Author Type: Registered Nurse Filed: 01/20/11357 Note Time: 02/12/061652 Status: Signed Internal Auditor: Salma Barros RN (Registered Nurse) Patient calling requesting a referral to PT for her feet and ankles. Patient is seeing a PT Marlon Jones already for her back and he says it is related to her feet and ankles but needs a referral. # [id number]. Please OK and send to Marianela to set up appt. Created on 12Feb2006 4:53pm by SALMA BARROS On 12Feb2006 5:40pm JATINDER DAVENPORT Trever wrote: ok Acknowledged by JATINDER DAVENPORT on 5:40pm On 16Feb2006 10:39am MARIANELA TANG wrote: Left message on voice mail that I have sent a new referral to Marlon Jones and they can book new appts based on that referral. Acknowledged by MARIANELA TANG on 10:39am ADER documented in this encounter Plan of Treatment Not on filedocumented as of this encounter Visit Diagnoses Not on filedocumented in this encounter Care Teams Commercial Loan Analyst Relationship Specialty Start Date End Date Titus Medina MD PCP - General 09/16/1996 03/17/15 documented as of this encounter
--- OUTSIDE RECORDS SUMMARY | 2022-07-30 19:48 | XMS_ITS | Encounter Summary ---
:1945 Author Organization [facility] Address [address] [place] [address] Care Team Providers Name Role Phone Titus Medina MD Primary Care Provider Encounter Details Date Type Department Care Team Description 09/21/2005 Office Visit [facility] 3800 Yudith Chan AU.D. Audiology 401 [facility] 3800 [place] [address] [place], [place] [address] [phone] Social History Tobacco Use Types Packs/Day Years Used Date Smoking Tobacco: Never Assessed Sex Assigned at Date Recorded Not on file documented as of this encounter Progress Notes Yudith Chan AU.D. - 09/21/2005 12:01 AM CST Progress Notes signed by ALYCIA Robert at 10/09/05 1358 Author: ALYCIA Robert Service: (none) Author Type: Hot Dipper Filed: 01/23/11 0903 Note Time: 09/21/05 0001 Status: Signed Hydraulic Barker Operator: ALYCIA Robert (Hot Dipper) NAME: YIMI GARCIA MR: [id number] ACCT: VISIT: [id number] DICTATING CLINICIAN: YUDITH LOERA MS,[facility] JOB: [id number] CLINIC PROGRESS NOTE DATE OF VISIT: 09/21/2005 SUBJECTIVE: Yimi Garcia, [id number], was seen for an audiological evaluation upon self referral. She was last seen in our department on 07/09/2004 which revealed a moderate mixed hearing loss improving to normal, bilaterally. 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 She denies any ear pain, vertigo, or a family history of hearing loss. She does admit that she experiences bilateral tinnitus and it has been present for many years. OBJECTIVE: Otoscopy revealed clear ear canals and visible tympanic membrane landmarks, bilaterally. Pure tone audiometric testing revealed a moderate to mixed hearing loss improving to normal, bilaterally. Speech law office receptionist thresholds were obtained at 20 dBHL, per ear. Word recognition at 60 dBHL, per ear, was 100% in the right ear and 92% in the left ear. ASSESSMENT: Communicatively significant moderate mixed hearing loss improving to normal, bilaterally. Speech law office receptionist thresholds were in good agreement with the pure tone thresholds. Word recognition for both ears was considered excellent at conversational level. PLAN: These results were discussed with the patient. The patient is a candidate for amplification and was invited to schedule a hearing aid evaluation appointment to learn more about available amplification. Regardless of her amplification choice, she should return to the clinic for an annual hearing evaluation to monitor her hearing sensitivity and to utilize hearing protection devices when in noise. JMW:[id number] C: 09/23/05 20:00 DOCUMENT: [id number] EXTRACTOR documented in this encounter Plan of Treatment Not on filedocumented as of this encounter Visit Diagnoses Not on filedocumented in this encounter Care Teams Product Expert Relationship Specialty Start Date End Date Titus Medina MD PCP - General 09/16/1996 03/17/15 documented as of this encounter
--- OUTSIDE RECORDS SUMMARY | 2022-07-30 19:48 | XMS_ITS | Encounter Summary ---
:1945 Author Organization [facility] Address [address] [place] [address] Care Team Providers Name Role Phone Titus Medina MD Primary Care Provider Encounter Details Date Type Department Care Team Description 01/01/2006 Office Visit [facility], [facility] PT [address] [facility] [address] [place], [place] [address] [place] [address] [phone] (Wo rk) Social History Tobacco Use Types Packs/Day Years Used Date Smoking Tobacco: Never Assessed Sex Assigned at Date Recorded Not on file documented as of this encounter Plan of Treatment Not on filedocumented as of this encounter Visit Diagnoses Not on filedocumented in this encounter Care Teams Rn Admission Relationship Specialty Start Date End Date Titus Medina MD PCP - General 09/16/1996 03/17/15 documented as of this encounter
--- OUTSIDE RECORDS SUMMARY | 2022-07-30 19:48 | XMS_ITS | Encounter Summary ---
:1945 [facility] Address [address] [place] [address] Care Team Providers Name Role Phone Titus Medina MD Primary Care Provider Encounter Details Date Type Department Care Team Description 02/05/2006 PN Conversion Only [facility] Social History Tobacco Use Types Packs/Day Years Used Date Smoking Tobacco: Never Assessed Sex Assigned at Date Recorded Not on file documented as of this encounter Plan of Treatment Not on filedocumented as of this encounter Visit Diagnoses Not on filedocumented in this encounter Care Teams Tissue Technologist Relationship Specialty Start Date End Date Titus Medina MD PCP - General 09/16/1996 03/17/15 documented as of this encounter
--- OUTSIDE RECORDS SUMMARY | 2022-07-30 19:48 | XMS_ITS | Encounter Summary ---
:1945 Author Organization [facility] Address [address] [place] [address] Care Team Providers Name Role Phone Titus Medina MD Primary Care Provider Encounter Details Date Type Department Care Team Description 12/10/2005 PN Conversion Only [facility] 3850 R adiology [address] [place], [place] [address] Social History Tobacco Use Types Packs/Day Years Used Date Smoking Tobacco: Never Assessed Sex Assigned at Date Recorded Not on file documented as of this encounter Plan of Treatment Not on filedocumented as of this encounter Procedures Procedure Name Priority Date/Time Associated Diagnosis Comme nts MM US BREAST UNILAT Routine 12/10/2005 7:54 AM Re sults for this ([facility]) MOLD TOOLER procedure are i n the results section. documented in this encounter Results MM US Breast Unilat ([facility]) (12/10/2005 7:54 AM MOLD TOOLER) Anatomical Region Laterality Modality Breast Ultrasound Specimen (Source) Anatomical Location Collection Method / Collectio n Time Received Time / Laterality Volume Narrative 12/10/2005 3:41 PM MOLD TOOLER Patient has cluster of three small very hypoechoic masses at 10 o'clock position zone 1. ??It appears to be a cluster of three cysts and some adjacent fibrocystic tissue. ?? No suspicious right breast findings. The heterogeneous focus noted in the rig ht breast 9:30 position zone 1 on 06/12/05 is not readily apparent. INTERPRETATION: ??Probable fibrocystic m ass with three tiny cysts right breast, 10 o'clock position zone 1 . ??ACR-BIRADS CATEGORY 2: Benign finding. [id number]/yc Dictating RAJINDER FULLER RADIOLOGIST Procedure Note Rajinder Vora - 12/05/2016Formattin g of this note might be different from the original. Patient has cluster of three small very hypoechoic masses at 10 o'clock position zone 1. It appears to b e a cluster of three cysts and some adjacent fibrocystic tissue. No suspicious right breast findings. The heterogeneous focus noted in the rig ht breast 9:30 position zone 1 on 06/12/05 is not readily apparent. INTERPRETATION: Probable fibrocystic mas s with three tiny cysts right breast, 10 o'clock position zone 1 . ACR-BIRADS CATEGORY 2: Benign finding. [id number]/yc Dictating RAJINDER FULLER RADIOLOGIST Margot Pavon MD RAD VESNA documented in this encounter Visit Diagnoses Not on filedocumented in this encounter Care Teams Graphics Artist Relationship Specialty Start Date End Date Titus Medina MD PCP - General 09/16/1996 03/17/15 documented as of this encounter
--- OUTSIDE RECORDS SUMMARY | 2022-07-30 19:48 | XMS_ITS | Encounter Summary ---
:1945 Author Organization [facility] Address [address] [place] [address] Care Team Providers Name Role Phone Titus Medina MD Primary Care Provider Reason for Visit Reason Comments Other Encounter Details Date Type Department Care Team Description 03/22/2006 Telephone [facility] Ramin Landry RN Other [address] [facility] [address] [place] [address] Social History Tobacco Use Types Packs/Day Years Used Date Smoking Tobacco: Never Assessed Sex Assigned at Date Recorded Not on file documented as of this encounter Progress Notes Ramin Barros RN - 03/22/2006 3:43 PM CDT Phone Note filed by Ramin Barros RN at 01/20/11519 Author: Ramin Barros RN Service: (none) Author Type: Registered Nurse Filed: 01/20/11519 Note Time: 03/22/061542 Status: Signed Manager Golf: Ramin Barros RN (Registered Nurse) Patient calling requesting the date of her last Tetanus shot. I did tell her it was 09-22-1999. Patient states she received a cut at [employer] and just wanted to check. Patient was encouraged to watch for signs and symptoms of infection, redness swelling or increased pain and make an appt if any of these occur. Patient agrees with plan. Created on 22Mar2006 3:43pm by RAMIN BARROS LE APPLICATION ENGINEER documented in this encounter Plan of Treatment Not on filedocumented as of this encounter Visit Diagnoses Not on filedocumented in this encounter Care Teams Airfield Services Officer Relationship Specialty Start Date End Date Titus Medina MD PCP - General 09/16/1996 03/17/15 documented as of this encounter
--- OUTSIDE RECORDS SUMMARY | 2022-07-30 19:48 | XMS_ITS | Encounter Summary ---
:1945 Author Organization [facility] Address [address] [place] [address] Care Team Providers Name Role Phone Titus Medina MD Primary Care Provider Encounter Details Date Type Department Care Team Description 03/11/2006 Office Visit [facility] Adi Jones, Therapy PT [address] [facility] [address] [place], [place] [address] [place] [address] [phone] (Wo rk) Social History Tobacco Use Types Packs/Day Years Used Date Smoking Tobacco: Never Assessed Sex Assigned at Date Recorded Not on file documented as of this encounter Plan of Treatment Not on filedocumented as of this encounter Visit Diagnoses Not on filedocumented in this encounter Care Teams In School Suspension Coordinator Relationship Specialty Start Date End Date Titus Medina MD PCP - General 09/16/1996 03/17/15 documented as of this encounter
--- OUTSIDE RECORDS SUMMARY | 2022-07-30 19:48 | XMS_ITS | Encounter Summary ---
:1945 Author Organization [facility] Address [address] [place] [address] Care Team Providers Name Role Phone Titus Medina MD Primary Care Provider Encounter Details Date Type Department Care Team Description 12/18/2005 Nursing Visit [facility] 3900 Airam Reyes MD Plastic Surgery [address] [place] [address] [place] [address] Social History Tobacco Use Types Packs/Day Years Used Date Smoking Tobacco: Never Assessed Sex Assigned at Date Recorded Not on file documented as of this encounter Progress Notes Renee Gonzalez RN - 12/18/2005 12:01 AM CST Progress Notes signed by Renee Gonzalez RN at 12/18/05 1039 Author: Renee Gonzalez RN Service: (none) Author Type: Registered Nurse Filed: 12/18/05 0000 Note Time: 12/18/05 0001 Status: Signed Curriculum And Assessment Coordinator: Renee Gonzalez RN (Registered Nurse) Ramona is here today to have her stiches removed from Dr. Airam Reyes. I removed the stitches from three areas on her forward scalp, the stitches were removed without distress or infection. She will wash her hair gently to remove the dried skin and scabs. She will return PRN. Her questions were answered and she will call if she has further questions. UTING ARCHITECT documented in this encounter Plan of Treatment Not on filedocumented as of this encounter Visit Diagnoses Not on filedocumented in this encounter Care Teams Exhibits Coordinator Relationship Specialty Start Date End Date Titus Medina MD PCP - General 09/16/1996 03/17/15 documented as of this encounter
--- OUTSIDE RECORDS SUMMARY | 2022-07-30 19:48 | XMS_ITS | Encounter Summary ---
:1945 Author Organization [facility] Address [address], [place] [address] Care Team Providers Name Role Phone Titus Medina MD Primary Care Provider Reason for Visit Reason Comments Other Encounter Details Date Type Department Care Team Description 02/09/2006 Telephone [facility], Message Other [address] , [address] [place], [place] [address] Social History Tobacco Use Types Packs/Day Years Used Date Smoking Tobacco: Never Assessed Sex Assigned at Date Recorded Not on file documented as of this encounter Progress Notes Ramin Barros RN - 02/09/2006 10:15 AM CDT Phone Note filed by Ramin Barros RN at 01/20/11346 Author: Ramin Barros RN Service: (none) Author Type: Registered Nurse Filed: 01/20/11346 Note Time: 02/09/06 1015 Status: Signed Oil Field Roustabout: Ramin Barros RN (Registered Nurse) Patient calling requesting a medication for pink eye. 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 Patient has red swollen painful eyes with a discharge per message left. Patient requesting a [facility] to [id number]. Please advise and will notify patient at [phone]. Created on 09Feb2006 10:15am by RAMIN BARROS On 09Feb2006 2:17pm JATINDER DAVENPORT wrote: faxed Rx Acknowledged by JATINDER DAVENPORT on 2:17pm On 09Feb2006 3:45pm RAMIN BARROS wrote: Message left on voice mail of above message. EX THREAD WINDER documented in this encounter Plan of Treatment Not on filedocumented as of this encounter Visit Diagnoses Not on filedocumented in this encounter Care Teams Material Coordinator Relationship Specialty Start Date End Date Titus Medina MD PCP - General 09/16/1996 03/17/15 documented as of this encounter
--- OUTSIDE RECORDS SUMMARY | 2022-07-30 19:48 | XMS_ITS | Encounter Summary ---
:1945 Author Organization [facility] Address [address] [place] [address] Care Team Providers Name Role Phone Titus Medina MD Primary Care Provider Encounter Details Date Type Department Care Team Description 12/03/2005 PN Conversion Only [facility] 39[address] CONV [address] [place] [address] Social History Tobacco Use Types Packs/Day Years Used Date Smoking Tobacco: Never Assessed Sex Assigned at Date Recorded Not on file documented as of this encounter Plan of Treatment Not on filedocumented as of this encounter Visit Diagnoses Not on filedocumented in this encounter Care Teams Extension Supervisor Relationship Specialty Start Date End Date Titus Medina MD PCP - General 09/16/1996 03/17/15 documented as of this encounter
--- OUTSIDE RECORDS SUMMARY | 2022-07-30 19:48 | XMS_ITS | Encounter Summary ---
:1945 Author Organization [facility] Address [address] [place] [address] Care Team Providers Name Role Phone Titus Medina MD Primary Care Provider Encounter Details Date Type Department Care Team Description 02/05/2006 Office Visit [place] [facility] Adi Jones, Therapy PT [address] [facility] [address] [place], [place] [address] 4 [place] [address] [phone] (Wo rk) Social History Tobacco Use Types Packs/Day Years Used Date Smoking Tobacco: Never Assessed Sex Assigned at Date Recorded Not on file documented as of this encounter Plan of Treatment Not on filedocumented as of this encounter Visit Diagnoses Not on filedocumented in this encounter Care Teams Glue Sprayer Relationship Specialty Start Date End Date Titus Medina MD PCP - General 09/16/1996 03/17/15 documented as of this encounter
--- OUTSIDE RECORDS SUMMARY | 2022-07-30 19:48 | XMS_ITS | Encounter Summary ---
:1945 Author Organization [facility] Address [address] [place] [address] Care Team Providers Name Role Phone Titus Medina MD Primary Care Provider Encounter Details Date Type Department Care Team Description 03/26/2006 Office Visit [place] [facility], [facility] PT [facility] [address] [place], [place] [address] 4 [place] [address] [phone] (Wo rk) Social History Tobacco Use Types Packs/Day Years Used Date Smoking Tobacco: Never Assessed Sex Assigned at Date Recorded Not on file documented as of this encounter Plan of Treatment Not on filedocumented as of this encounter Visit Diagnoses Not on filedocumented in this encounter Care Teams Potato Chip Maker Relationship Specialty Start Date End Date Titus Medina MD PCP - General 09/16/1996 03/17/15 documented as of this encounter
--- OUTSIDE RECORDS SUMMARY | 2022-07-30 19:48 | XMS_ITS | Encounter Summary ---
:1945 Author Organization [facility] Address [address] [place] [address] Care Team Providers Name Role Phone Titus Medina MD Primary Care Provider Encounter Details Date Type Department Care Team Description 02/23/2006 Identity Management Consultant Only [place] [facility] Margot Pavon MD [facility] [address] [facility] [address] [place] [id number] [phone] Social History Tobacco Use Types Packs/Day Years Used Date Smoking Tobacco: Never Assessed Sex Assigned at Date Recorded Not on file documented as of this encounter Progress Notes Margot Pavon MD - 02/23/2006 12:01 AM CDT Progress Notes signed by Margot Pavon MD at 02/23/06 1720 Author: Margot Pavon MD Service: (none) Author Type: Physician Filed: 01/23/11 1211 Note Time: 02/23/06 0001 Status: Signed Supervisor Grading: Margot Pavon MD (Physician) November 04, 2005 RE: Ramona Sheikh 1945 Ms. Sheikh has chronic pain and has medical reason to have acupuncture, therapeutic massage, and physical therapy. She should be allowed to use funds from her [employer] &/or eligible other funds to pay for these services. Please consider this letter applicable throughout 2006. Thank you. Margot Pavon MD Family Medicine documented in this encounter Plan of Treatment Not on filedocumented as of this encounter Visit Diagnoses Not on filedocumented in this encounter Care Teams Computer Art Instructor Relationship Specialty Start Date End Date Titus Medina MD PCP - General 09/16/1996 03/17/15 documented as of this encounter
--- OUTSIDE RECORDS SUMMARY | 2022-07-30 19:48 | XMS_ITS | Encounter Summary ---
:1945 Author Organization [facility] Address [address] [place] [address] Care Team Providers Name Role Phone Titus Medina MD Primary Care Provider Encounter Details Date Type Department Care Team Description 01/14/2006 PN Conversion Only [place] [facility] [address] [place] [address] Social History Tobacco Use Types Packs/Day Years Used Date Smoking Tobacco: Never Assessed Sex Assigned at Date Recorded Not on file documented as of this encounter Plan of Treatment Not on filedocumented as of this encounter Visit Diagnoses Not on filedocumented in this encounter Care Teams Slot Floorperson Relationship Specialty Start Date End Date Titus Medina MD PCP - General 09/16/1996 03/17/15 documented as of this encounter
--- OUTSIDE RECORDS SUMMARY | 2022-07-30 19:48 | XMS_ITS | Encounter Summary ---
:1945 Author Organization [facility] Address [address] [place] [address] Care Team Providers Name Role Phone Titus Medina MD Primary Care Provider Encounter Details Date Type Department Care Team Description 02/15/2006 Office Visit [place] [facility] Ad[facility] Jones, Therapy PT [facility] [address] [place], [place] [address] 4 [place] [address] [phone] (Wo rk) Social History Tobacco Use Types Packs/Day Years Used Date Smoking Tobacco: Never Assessed Sex Assigned at Date Recorded Not on file documented as of this encounter Plan of Treatment Not on filedocumented as of this encounter Visit Diagnoses Not on filedocumented in this encounter Care Teams Nurse Advocate Relationship Specialty Start Date End Date Titus Medina MD PCP - General 09/16/1996 03/17/15 documented as of this encounter
--- OUTSIDE RECORDS SUMMARY | 2022-07-30 19:48 | XMS_ITS | Encounter Summary ---
:1945 [facility] Address [address] [place] [address] Care Team Providers Name Role Phone Titus Medina MD Primary Care Provider Encounter Details Date Type Department Care Team Description 02/04/2006 PN Conversion Only [facility] Social History Tobacco Use Types Packs/Day Years Used Date Smoking Tobacco: Never Assessed Sex Assigned at Date Recorded Not on file documented as of this encounter Plan of Treatment Not on filedocumented as of this encounter Visit Diagnoses Not on filedocumented in this encounter Care Teams Assistant Manager/Embalmer Relationship Specialty Start Date End Date Titus Medina MD PCP - General 09/16/1996 03/17/15 documented as of this encounter
--- OUTSIDE RECORDS SUMMARY | 2022-07-30 19:48 | XMS_ITS | Encounter Summary ---
:1945 [facility] Address [address] [place] [address] Care Team Providers Name Role Phone Titus Medina MD Primary Care Provider Encounter Details Date Type Department Care Team Description 09/21/2005 Office Visit [facility] 38[address] Ear, Ramon Ariza MD Nose, and Throat [address] [facility] [place] [address] [place], [place] [address] [phone] Social History Tobacco Use Types Packs/Day Years Used Date Smoking Tobacco: Never Assessed Sex Assigned at Date Recorded Not on file documented as of this encounter Progress Notes Ramon Ariza MD - 09/21/2005 12:01 AM CST Progress Notes signed by Ramon Ariza MD at 10/06/05 0908 Author: Ramon Ariza MD Service: (none) Author Type: Physician Filed: 01/23/11902 Note Time: 09/21/05 0001 Status: Signed Scientific Programmer Analyst: Ramon Ariza MD (Physician) NAME: YIMI GARCIA MR: [id number] ACCT: [id number] VISIT: [id number] DICTATING CLINICIAN: RAMON ARIZA MD JOB: [id number] CLINIC PROGRESS NOTE DATE OF VISIT: 09/21/2005 SUBJECTIVE: Ms. Garcia returns for followup. She has some difficulty only at nighttime with nasal obstruction. It does switch sides, right greater than left. On a calendar, she marked down approximately 28 days in the last 2 months. She occasionally has some yellow crusting in her nose. She is status post submucous resection of the turbinates. She is performing irrigations. She is not on nasal steroids. OBJECTIVE: A healthy-appearing 60-year-old in no apparent distress. Intranasally, septum is straight. Inferior turbinates are only mildly hypertrophied. Nasal airway is patent bilaterally. ASSESSMENT: Intermittent nighttime nasal congestion, most likely secondary to supine position and turbinate hypertrophy. PLAN: I want her to continue with her nasal saline irrigations. Did start her Flonase 2 sprays each nostril at night. Vaseline application afterwards for dryness. Would not recommend further surgical intervention. [id number] C: 09/22/05 15:19 DOCUMENT: [id number] RAM/MUSIC DIRECTOR documented in this encounter Plan of Treatment Not on filedocumented as of this encounter Visit Diagnoses Not on filedocumented in this encounter Care Teams Clinic Director Relationship Specialty Start Date End Date Titus Medina MD PCP - General 09/16/1996 03/17/15 documented as of this encounter
--- OUTSIDE RECORDS SUMMARY | 2022-07-30 19:48 | XMS_ITS | Encounter Summary ---
:1945 Author Organization [facility] Address [address] [place] [address] Care Team Providers Name Role Phone Titus Medina MD Primary Care Provider Reason for Visit Reason Comments Other Encounter Details Date Type Department Care Team Description 08/25/2005 Telephone [facility] Ramin Landry RN Other [address] [facility] [address] [place] [address] Social History Tobacco Use Types Packs/Day Years Used Date Smoking Tobacco: Never Assessed Sex Assigned at Date Recorded Not on file documented as of this encounter Progress Notes Ramin Barros RN - 08/25/2005 1:19 PM CST Phone Note filed by Ramin Barros RN at 01/19/112227 Author: Ramin Barros RN Service: (none) Author Type: Registered Nurse Filed: 01/19/112227 Note Time: 08/25/051318 Status: Signed Trailer Steerer: Ramin Barros RN (Registered Nurse) CLINICIAN FOLLOW-UP: FYI (note is complete) IMPRESSION: Neurological symptom SEMI-URGENT SYMPTOMS: Vertigo with nausea and vomiting, ears ringing, Additional Symptoms: woke up this mornign with vertigo, n/v. 3 days ago felt left ear pain. Denies any emergent symptoms PATIENT INFORMATION: Problem List: Reviewed today in [employer] INTERIM/HOME MANAGEMENT RECOMMENDATIONS: For dizziness: Avoid positions that aggravate symptoms. For headache: Advised to call back if any of the following occur: no improvement with home management, symptoms persist or worsen, any other questions or concerns. PLAN: SCHEDULE APPOINTMENT WITHIN 12 HOURS Patient/Caller agrees with plan and denies additional questions. Patient will call son to take to ER if worsening symptoms. Reference(s) Used: [facility] Neuro Symptoms Nursing Reference - Adult, *SH~PNNL~NEURO ~ Created on 25Aug2005 1:19pm by RAMIN BARROS MECHANIC documented in this encounter Plan of Treatment Not on filedocumented as of this encounter Visit Diagnoses Not on filedocumented in this encounter Care Teams Bowling Ball Assembler Relationship Specialty Start Date End Date Titus Medina MD PCP - General 09/16/1996 03/17/15 documented as of this encounter
--- OUTSIDE RECORDS SUMMARY | 2022-07-30 19:48 | XMS_ITS | Encounter Summary ---
:1945 Author Organization [facility] Address [address] [place] [address] Care Team Providers Name Role Phone Titus Medina MD Primary Care Provider Encounter Details Date Type Department Care Team Description 02/04/2006 Office Visit [facility] P3900 Airam Hanks MD [address] [place] [address] [place], [place] [id number] Social History Tobacco Use Types Packs/Day Years Used Date Smoking Tobacco: Never Assessed Sex Assigned at Date Recorded Not on file documented as of this encounter Progress Notes Airam Braun MD - 02/04/2006 12:01 AM CDT Progress Notes signed by Airam Braun MD at 02/25/06 1828 Author: Airam Braun MD Service: (none) Author Type: Physician Filed: 01/23/11 1150 Note Time: 02/04/06 0001 Status: Signed Cutting Machine Fixer: Airam Braun MD (Physician) NAME: YIMI GARCIA MR: [id number] ACCT: [id number] VISIT: [id number] DICTATING CLINICIAN: AIRAM BRAUN MD JOB: [id number] CLINIC PROGRESS NOTE DATE OF VISIT: 02/04/2006 SUBJECTIVE: Mrs. Garcia underwent correction of three of her four brow lift scars in 12/2005. The wounds were closed with clear nylon in the deep layer and 4-0 Prolene in the skin that was left in place for 12-14 days. OBJECTIVE: Nonetheless, the left lateral scar has widened and unfortunately this is right where she parts her hair. The right lateral scar is also a bit widened. The parasagittal scar does look to be improved. She has diminished hair growth lateral to the scar as well and this may just reflect follicles that are still dormant since she is just 8 weeks postop. ASSESSMENT: Postop scar revision. PLAN: We should check her again in another couple of months to see if this is improved. I really do not know what approach to take at this point for further narrowing of that scar. We could consider 2-3 follicle hair transplant grafts. We will see her again in a few months. [id number] C: 02/10/06 12:20 DOCUMENT: [id number] documented in this encounter Plan of Treatment Not on filedocumented as of this encounter Visit Diagnoses Not on filedocumented in this encounter Care Teams Consumer Science Teacher Relationship Specialty Start Date End Date Titus Medina MD PCP - General 09/16/1996 03/17/15 documented as of this encounter
--- OUTSIDE RECORDS SUMMARY | 2022-07-30 19:48 | XMS_ITS | Encounter Summary ---
:1945 Author [facility] Address [address] [place] [address] Care Team Providers Name Role Phone Titus Medina MD Primary Care Provider Reason for Visit Reason Comments Other Encounter Details Date Type Department Care Team Description 10/16/[address] [facility] Jatinder Hi MD Other [address] [place] [address] [place] [address] [place], [place] [address] (Wo rk) Social History Tobacco Use Types Packs/Day Years Used Date Smoking Tobacco: Never Assessed Sex Assigned at Date Recorded Not on file documented as of this encounter Progress Notes Center, Message - 10/16/2005 3:48 PM CST Phone Note filed by [employer] at 01/19/11 8187 Author: [employer] Service: (none) Author Type: (none) Filed: 01/19/112349 Note Time: 10/16/058 Status: Signed Rail Switch Operator: [employer] Dr. Pavon- requested pt schedule colonoscopy. PT has not scheduled. GI is cancelling this request form. Thanks, GI Created on 16Oct2005 3:48pm by PAM HCAPMAN Acknowledged by JATINDER PAVON on 3:49pm OTIONS REPRESENTATIVE documented in this encounter Plan of Treatment Not on filedocumented as of this encounter Visit Diagnoses Not on filedocumented in this encounter Care Teams Band Sawyer Relationship Specialty Start Date End Date Titus Medina MD PCP - General 09/16/1996 03/17/15 documented as of this encounter
--- OUTSIDE RECORDS SUMMARY | 2022-07-30 19:48 | XMS_ITS | Encounter Summary ---
:1945 Author Organization [facility] Address [address] [place] [address] Care Team Providers Name Role Phone Titus Medina MD Primary Care Provider Encounter Details Date Type Department Care Team Description 09/21/2005 PN Conversion Only RODE[facility] PERFORMER [address] CON[address] [place] [address] Social History Tobacco Use Types Packs/Day Years Used Date Smoking Tobacco: Never Assessed Sex Assigned at Date Recorded Not on file documented as of this encounter Plan of Treatment Not on filedocumented as of this encounter Visit Diagnoses Not on filedocumented in this encounter Care Teams Animal Caretaker Relationship Specialty Start Date End Date Titus Medina MD PCP - General 09/16/1996 03/17/15 documented as of this encounter
--- OUTSIDE RECORDS SUMMARY | 2022-07-30 19:48 | XMS_ITS | Encounter Summary ---
:1945 Author Organization [facility] Address [address] [place] [address] Care Team Providers Name Role Phone Titus Medina MD Primary Care Provider Encounter Details Date Type Department Care Team Description 01/22/2006 Office Visit [facility] [address] Contact Jaclyn Olivia [address] [place] [address] [place], [place] [address] [phone] Social History Tobacco Use Types Packs/Day Years Used Date Smoking Tobacco: Never Assessed Sex Assigned at Date Recorded Not on file documented as of this encounter Plan of Treatment Not on filedocumented as of this encounter Visit Diagnoses Not on filedocumented in this encounter Care Teams Ordnance Artificer Helper Relationship Specialty Start Date End Date Titus Medina MD PCP - General 09/16/1996 03/17/15 documented as of this encounter
--- OUTSIDE RECORDS SUMMARY | 2022-07-30 19:48 | XMS_ITS | Encounter Summary ---
:1945 Author Organization [facility] Address [address] [place] [address] Care Team Providers Name Role Phone Titus Medina MD Primary Care Provider Encounter Details Date Type Department Care Team Description 11/26/2005 Office Visit [facility] Lucero Gonzalez, [address] Juliano Abdalla MD [address] [place] [address] [place], [place] [address] (Wo rk) Social History Tobacco Use Types Packs/Day Years Used Date Smoking Tobacco: Never Assessed Sex Assigned at Date Recorded Not on file documented as of this encounter Last Filed Vital Signs Vital Sign Reading Time Taken Comments Blood Pressure 138/74 11/26/2005 4:26 PM BLASTING WORKER Pulse 68 11/26/2005 4:26 PM C: Radial Reg ular BLASTING WORKER Temperature - - Respiratory Rate - - Oxygen Saturation - - Inhaled Oxygen - - Concentration Weight 84.8 kg (186 lb 15.9 11/26/2005 4:26 PM C: 84.8k g oz) BLASTING WORKER Height - - Body Mass Index 29.29 05/28/2005 2:51 PM CDT documented in this encounter Progress Notes Lucero Zamora MD - 11/26/2005 12:01 AM CST Progress Notes signed by Balbir Cassidy MD at 12/17/05 1359 Author: Lucero Zamora MD Service: (none) Author Type: Physician Filed: 01/23/11 1025 Note Time: 11/26/05 0001 Status: Signed Clinical Esthetician: Lucero Zamora MD (Physician) NAME: YIMI GARCIA MR: [id number] ACCT: [id number] VISIT: [id number] DICTATING CLINICIAN: LUCERO ZAMORA MD JOB: [id number] CLINIC PROGRESS NOTE DATE OF VISIT: 11/26/2005 SUBJECTIVE: : 1945. Chief Complaint: Low back pain. This patient is a 60-year-old female who presents to clinic with the complaints of back pain. She had been moving some furniture around three weeks ago and noticed some low back pain that began shortly afterwards. The pain is located on both sides of her back and in the midline. It is worse with sitting for long periods of time and doing any heavy lifting. She also notes some occasional pain in her right groin while walking around the track at her gym but this has been present longer than three weeks. She denies any numbness, tingling, or weakness. No pain shooting down the backs of her legs. No fevers or chills. She does have night sweats but has had for years and is currently using hormone therapy with good relief. She also has complaints of urinary incontinence which has been present for years. She is currently seeing a urologist with plans for a urethral sling secondary to cystocele. There has been no change in her incontinence and no incontinence of bowel. She denies any current urinary symptoms, including dysuria, hematuria, or flank pain. She is not using any medications for pain at this time but has been on glucosamine regularly for a few years. She does not have any arthritis that she knows of and has not had any broken bones in the past. She had a similar injury to her low back a few years ago after which she went through physical therapy with good relief. She is interested in doing this again. OBJECTIVE: VS: BP: 138/74. P: 68 and regular. Wt: 187. GENERAL: The patient is a well-appearing female in no acute distress. She is very pleasant and answers questions appropriately. CARDIOVASCULAR: Regular rate and rhythm, no murmur. LUNGS: Clear to auscultation bilaterally. MUSCULOSKELETAL: There is mild tenderness to palpation on the bilateral low back, mostly along the paraspinous muscles and over the iliac crests. She has no pain to palpation over the greater trochanters bilaterally. Good range of motion with forward flexion, extension, side bending, and twisting. Good range of motion bilateral hips with no pain. Negative straight leg raise bilaterally. No edema. No bruising or other signs of injury noted. NEURO: Strength and sensation intact throughout. DTRs symmetric with good knee and ankle jerks bilaterally. Normal gait including toe and heel walking. ASSESSMENT: Low back pain. PLAN: 1. Back pain likely musculoskeletal related to moving furniture. No concerning symptoms at this time. Patient will begin using ibuprofen as needed for control of pain and inflammation, as well as ice, heat, and stretching exercises. She will be given a referral to physical therapy for help in managing her pain and teaching of a home rehab program. She will be sent information on back pain and ways to improve her symptoms at home as she left the office before this was handed out. 2. Patient will return to clinic in approximately one month if no improvement in her back pain or sooner if she develops any worsening symptoms, such as increasing pain, weakness, numbness, tingling, and new incontinence or fevers. Precepted with Dr. Balbir Cassiyd. [id number] C: 11/27/05 17:48 DOCUMENT: [id number] TING WORKER documented in this encounter Plan of Treatment Not on filedocumented as of this encounter Visit Diagnoses Not on filedocumented in this encounter Care Teams Dowel Inserting Machine Operator Relationship Specialty Start Date End Date Titus Medina MD PCP - General 09/16/1996 03/17/15 documented as of this encounter
--- OUTSIDE RECORDS SUMMARY | 2022-07-30 19:48 | XMS_ITS | Encounter Summary ---
:1945 Author Organization [facility] Address [address] [place] [address] Care Team Providers Name Role Phone Titus Medina MD Primary Care Provider Encounter Details Date Type Department Care Team Description 01/14/2006 Office Visit [place] [facility] Adi Jones, [facility] PT [address] [facility] [address] [place], [place] [address] 4 [place] [address] [phone] (Wo rk) Social History Tobacco Use Types Packs/Day Years Used Date Smoking Tobacco: Never Assessed Sex Assigned at Date Recorded Not on file documented as of this encounter Plan of Treatment Not on filedocumented as of this encounter Visit Diagnoses Not on filedocumented in this encounter Care Teams Low Raw Sugar Cutter Relationship Specialty Start Date End Date Titus Medina MD PCP - General 09/16/1996 03/17/15 documented as of this encounter
--- OUTSIDE RECORDS SUMMARY | 2022-07-30 19:48 | XMS_ITS | Encounter Summary ---
:1945 Author Organization [facility] Address [address] [place] [address] Care Team Providers Name Role Phone Titus Medina MD Primary Care Provider Encounter Details Date Type Department Care Team Description 03/18/2006 Office Visit [place] [facility] Adi Jones, Therapy PT [address] [facility] [place], [place] [address] 4 [place] [address] [phone] (Wo rk) Social History Tobacco Use Types Packs/Day Years Used Date Smoking Tobacco: Never Assessed Sex Assigned at Date Recorded Not on file documented as of this encounter Plan of Treatment Not on filedocumented as of this encounter Visit Diagnoses Not on filedocumented in this encounter Care Teams Avionics Safety Inspector Relationship Specialty Start Date End Date Titus Medina MD PCP - General 09/16/1996 03/17/15 documented as of this encounter
--- OUTSIDE RECORDS SUMMARY | 2022-07-30 19:48 | XMS_ITS | Encounter Summary ---
:1945 Author Organization [facility] Address [address] [place] [address] Care Team Providers Name Role Phone Titus Medina MD Primary Care Provider Encounter Details Date Type Department Care Team Description 03/23/2006 Office Visit [place] [facility], [facility] PT [facility] [address] [place], [place] [address] [address] [place] [address] [phone] (Wo rk) Social History Tobacco Use Types Packs/Day Years Used Date Smoking Tobacco: Never Assessed Sex Assigned at Date Recorded Not on file documented as of this encounter Plan of Treatment Not on filedocumented as of this encounter Visit Diagnoses Not on filedocumented in this encounter Care Teams City Driver Relationship Specialty Start Date End Date Titus Medina MD PCP - General 09/16/1996 03/17/15 documented as of this encounter
--- OUTSIDE RECORDS SUMMARY | 2022-07-30 19:48 | XMS_ITS | Encounter Summary ---
:1945 Author Organization [facility] Address [address] [place] [address] Care Team Providers Name Role Phone Titus Medina MD Primary Care Provider Encounter Details Date Type Department Care Team Description 09/17/2005 PN Conversion Only HYDRAULIC PRESS SERVICER 3900 CONV [address] [place] [address] Social History Tobacco Use Types Packs/Day Years Used Date Smoking Tobacco: Never Assessed Sex Assigned at Date Recorded Not on file documented as of this encounter Plan of Treatment Not on filedocumented as of this encounter Visit Diagnoses Not on filedocumented in this encounter Care Teams Director Of Mobile Marketing Relationship Specialty Start Date End Date Titus Medina MD PCP - General 09/16/1996 03/17/15 documented as of this encounter
--- OUTSIDE RECORDS SUMMARY | 2022-07-30 19:48 | XMS_ITS | Encounter Summary ---
:1945 Author Organization [facility] Address [address] [place] [address] Care Team Providers Name Role Phone Titus Medina MD Primary Care Provider Encounter Details Date Type Department Care Team Description 02/09/2006 Office Visit [place] [facility] Adi [facility], Therapy PT [facility] [address] [place], [place] [address] 4 [place] [address] [phone] (Wo rk) Social History Tobacco Use Types Packs/Day Years Used Date Smoking Tobacco: Never Assessed Sex Assigned at Date Recorded Not on file documented as of this encounter Plan of Treatment Not on filedocumented as of this encounter Visit Diagnoses Not on filedocumented in this encounter Care Teams Corporate Development Analyst Relationship Specialty Start Date End Date Titus Medina MD PCP - General 09/16/1996 03/17/15 documented as of this encounter
--- OUTSIDE RECORDS SUMMARY | 2022-07-30 19:48 | XMS_ITS | Encounter Summary ---
:1945 Author Organization [facility] Address [address] [place] [address] Care Team Providers Name Role Phone Titus Medina MD Primary Care Provider Encounter Details Date Type Department Care Team Description 03/30/2006 Office Visit [place] [facility] Adi [facility], Therapy PT [address] [facility] [address] [place], [place] [address] 4 [place] [address] [phone] (Wo rk) Social History Tobacco Use Types Packs/Day Years Used Date Smoking Tobacco: Never Assessed Sex Assigned at Date Recorded Not on file documented as of this encounter Plan of Treatment Not on filedocumented as of this encounter Visit Diagnoses Not on filedocumented in this encounter Care Teams Stand In Relationship Specialty Start Date End Date Titus Medina MD PCP - General 09/16/1996 03/17/15 documented as of this encounter
--- OUTSIDE RECORDS SUMMARY | 2022-07-30 19:48 | XMS_ITS | Encounter Summary ---
:1945 Author Organization [facility] Address [address] [place] [address] Care Team Providers Name Role Phone Titus Medina MD Primary Care Provider Encounter Details Date Type Department Care Team Description 02/17/2006 Office Visit [facility] 3900 Ramon Reyes MD Ophthalmology [address] [place] [address] [place] [address] [phone] Social History Tobacco Use Types Packs/Day Years Used Date Smoking Tobacco: Never Assessed Sex Assigned at Date Recorded Not on file documented as of this encounter Plan of Treatment Not on filedocumented as of this encounter Visit Diagnoses Not on filedocumented in this encounter Care Teams Corking Machine Operator Relationship Specialty Start Date End Date Titus Medina MD PCP - General 09/16/1996 03/17/15 documented as of this encounter
--- OUTSIDE RECORDS SUMMARY | 2022-07-30 19:48 | XMS_ITS | Encounter Summary ---
:1945 Author Organization [facility] Address [address] [place] [address] Care Team Providers Name Role Phone Titus Medina MD Primary Care Provider Encounter Details Date Type Department Care Team Description 09/17/2005 Procedure Visit CONV P3900 Airam Hanks MD [address] [facility] [address] [place] [address] [address] [place], [place] [address] Social History Tobacco Use Types Packs/Day Years Used Date Smoking Tobacco: Never Assessed Sex Assigned at Date Recorded Not on file documented as of this encounter Progress Notes Airam Braun MD - 09/17/2005 12:01 AM CST Progress Notes signed by Airam Braun MD at 10/08/05 1819 Author: Airam Braun MD Service: (none) Author Type: Physician Filed: 01/23/11 0859 Note Time: 09/17/05 0001 Status: Signed Criminal Analyst: Airam Braun MD (Physician) NAME: YIMI GARCIA MR: [id number] ACCT: [id number] VISIT: [id number] DICTATING CLINICIAN: AIRAM BRAUN MD JOB: [id number] CLINIC PROGRESS NOTE DATE OF VISIT: 09/17/2005 SUBJECTIVE: Mrs. Garcia has some concerns about her scars. OBJECTIVE: Three of the four incisions are a bit wide. We did revise those in the past, first in 12/2001 and again in 05/2002. ASSESSMENT: Postop check. PLAN: I think another revision is worthwhile, however. Would recommend we use clear nylon in the deep tissue. She will set it up. MC:[id number] C: 09/28/05 09:28 DOCUMENT: [id number] ROOM TECHNICIAN documented in this encounter Plan of Treatment Not on filedocumented as of this encounter Visit Diagnoses Not on filedocumented in this encounter Care Teams Boat Carpenter Mechanic Relationship Specialty Start Date End Date Titus Medina MD PCP - General 09/16/1996 03/17/15 documented as of this encounter
--- OUTSIDE RECORDS SUMMARY | 2022-07-30 19:48 | XMS_ITS | Encounter Summary ---
:1945 Author Organization [facility] Address [address] [place] [address] Care Team Providers Name Role Phone Titus Medina MD Primary Care Provider Encounter Details Date Type Department Care Team Description 01/14/2006 PN Conversion Only [facility] [address] [address] [place] [address] Social History Tobacco Use Types Packs/Day Years Used Date Smoking Tobacco: Never Assessed Sex Assigned at Date Recorded Not on file documented as of this encounter Plan of Treatment Not on filedocumented as of this encounter Visit Diagnoses Not on filedocumented in this encounter Care Teams Gym Manager Relationship Specialty Start Date End Date Titus Medina MD PCP - General 09/16/1996 03/17/15 documented as of this encounter
--- OUTSIDE RECORDS SUMMARY | 2022-07-30 19:48 | XMS_ITS | Encounter Summary ---
:1945 Author Organization [email or web address] Address [address] [place] [address] Care Team Providers Name Role Phone Titus Medina MD Primary Care Provider Encounter Details Date Type Department Care Team Description 12/03/2005 Procedure Visit CONV P3900 Airam Hanks MD [address] [facility] [address] [place] [address] [address] [place], [place] [address] Social History Tobacco Use Types Packs/Day Years Used Date Smoking Tobacco: Never Assessed Sex Assigned at Date Recorded Not on file documented as of this encounter Progress Notes Airam Braun MD - 12/03/2005 12:01 AM CST Progress Notes signed by Airam Braun MD at 01/11/06 9875 Author: Airam Braun MD Service: (none) Author Type: Physician Filed: 01/23/11 1032 Note Time: 12/03/05 0001 Status: Signed Box Cutter: Airam Braun MD (Physician) NAME: YIMI GARCIA MR: [id number] ACCT: [id number] VISIT: [id number] DICTATING CLINICIAN: AIRAM BRAUN MD JOB: [id number] CLINIC PROGRESS NOTE DATE OF VISIT: 12/03/2005 SUBJECTIVE: Yimi is here for correction of the three brow lift scars that have widened. OBJECTIVE: All three sites were prepped and anesthetized. The old scar was excised and the wound edges were undermined slightly. Deep sutures of nylon 4-0 were used rather than PDS, and the skin surface was closed with 4-0 Prolene. ASSESSMENT: Scalp scars. PLAN: We will leave the sutures in for 12-14 days this time. MC:[id number] C: 12/03/05 11:31 DOCUMENT: [id number] documented in this encounter Plan of Treatment Not on filedocumented as of this encounter Visit Diagnoses Not on filedocumented in this encounter Care Teams Work Force Advisor Relationship Specialty Start Date End Date Titus Medina MD PCP - General 09/16/1996 03/17/15 documented as of this encounter
--- OUTSIDE RECORDS SUMMARY | 2022-07-30 19:48 | XMS_ITS | Encounter Summary ---
:1945 Author Organization [facility] Address [address] [place] [address] Care Team Providers Name Role Phone Titus Medina MD Primary Care Provider Encounter Details Date Type Department Care Team Description 01/14/2006 PN Conversion Only [place] [address] [place] [address] Social History Tobacco Use Types Packs/Day Years Used Date Smoking Tobacco: Never Assessed Sex Assigned at Date Recorded Not on file documented as of this encounter Plan of Treatment Not on filedocumented as of this encounter Visit Diagnoses Not on filedocumented in this encounter Care Teams Watch Crystal Molder Relationship Specialty Start Date End Date Titus Medina MD PCP - General 09/16/1996 03/17/15 documented as of this encounter
--- OUTSIDE RECORDS SUMMARY | 2022-07-30 19:48 | XMS_ITS | Encounter Summary ---
:1945 Author Organization [facility] Address [address] [place] [address] Care Team Providers Name Role Phone Titus Medina MD Primary Care Provider Encounter Details Date Type Department Care Team Description 03/08/2006 Office Visit [place] [facility] Adi Jones, Therapy PT [facility] [address] [place], [place] [address] 4 [place] [address] [phone] (Wo rk) Social History Tobacco Use Types Packs/Day Years Used Date Smoking Tobacco: Never Assessed Sex Assigned at Date Recorded Not on file documented as of this encounter Plan of Treatment Not on filedocumented as of this encounter Visit Diagnoses Not on filedocumented in this encounter Care Teams Manufacturing Engineer Automotive Relationship Specialty Start Date End Date Titus Medina MD PCP - General 09/16/1996 03/17/15 documented as of this encounter
--- OUTSIDE RECORDS SUMMARY | 2022-07-30 19:49 | XMS_ITS | Encounter Summary ---
:1945 Author Organization [facility] Address [address] [place] [address] Care Team Providers Name Role Phone Titus Medina MD Primary Care Provider Reason for Visit Reason Comments Other Encounter Details Date Type Department Care Team Description 06/16/2005 Telephone [facility] Jatinder Hi MD Other [address] [place] [address] [place] [address] [place], [place] [address] (Wo rk) Social History Tobacco Use Types Packs/Day Years Used Date Smoking Tobacco: Never Assessed Sex Assigned at Date Recorded Not on file documented as of this encounter Progress Notes Ramin Barros RN - 06/16/2005 8:54 AM CDT Phone Note filed by Ramin Barros RN at 01/19/112033 Author: Ramin Barros RN Service: (none) Author Type: Registered Nurse Filed: 01/19/112033 Note Time: 06/16/05853 Status: Signed Reserve Operator: Ramin Barros RN (Registered Nurse) Phone Care Triage Note [facility] Stings/Bites Nursing Reference - Adult IMPRESSION: Insect Sting/Bite SEMI-URGENT SYMPTOMS: Symptoms of possible infection, increased swelling, increased redness, red streaks, Additional Symptoms: Patient was bite Wednesday evening and now complaining of increased swelling, redness, itching. Went to urgent care last evening was told to go see someone who knows more about lymes disease. Denies fever ,aches. Patient states only localized symptoms. Patient is very anxious and wishes to be seen. Patient states Time is of the essesence with lymes disease you know. Patient also denies seeing what bit her. PATIENT INFORMATION: Problem List: Reviewed today in LastWord --- Allergies: Reviewed/updated today in LastWord INTERIM/HOME MANAGEMENT RECOMMENDATIONS: Declined Interim/Home Management Information given per: [facility] Bites/Stings Nursing Reference Patient to call clinic for any of the following: symptoms of infection, e.g., increased redness, tenderness, red streaks, fever, inflammation occurs within 12 hours of the bite, fever or rash or other symptoms of illness occur within 1 month of tick bite, symptoms persist or worsen, any other questions or concerns. Dr. Pavon will return call at [phone]. PLAN: SCHEDULED APPOINTMENT WITHIN 12 HOURS Patient/Caller agrees with plan and denies additional questions. Denies any emergent, urgent symptoms Call Complete. Created on 16Jun2005 8:54am by RAMIN BARROS On 16Jun2005 10:36am RAMIN BARROS wrote: FYI to Dr. Pavon, Received a voice mail from patient stating she could not wait any longer and was going to go back to Urgent Care now per instructions by [facility] yesterday. On 16Jun2005 12:19pm JATINDER PAVON wrote: On review of literature, probably doesn't need atbs if potential tick bite was brief duration; attempted to contact pt but not at home; left message to call. Acknowledged by JATINDER PAVON on 12:19pm D BANK WORKER documented in this encounter Plan of Treatment Not on filedocumented as of this encounter Visit Diagnoses Not on filedocumented in this encounter Care Teams Field Broomer Relationship Specialty Start Date End Date Titus Medina MD PCP - General 09/16/1996 03/17/15 documented as of this encounter
--- OUTSIDE RECORDS SUMMARY | 2022-07-30 19:49 | XMS_ITS | Encounter Summary ---
:1945 Author Organization [facility] Address [address] [place] [address] Care Team Providers Name Role Phone Titus Medina MD Primary Care Provider Reason for Visit Reason Comments Other Encounter Details Date Type Department Care Team Description 06/03/2005 Telephone [facility], Message Other [address] , [address] [place], [place] [address] Social History Tobacco Use Types Packs/Day Years Used Date Smoking Tobacco: Never Assessed Sex Assigned at Date Recorded Not on file documented as of this encounter Progress Notes Salma Barros RN - 06/03/2005 4:18 PM CDT Phone Note filed by Salma Barros RN at 01/19/11 2018 Author: Salma Barros RN Service: (none) Author Type: Registered Nurse Filed: 01/19/11 2018 Note Time: 06/03/05 1618 Status: Signed Radiology Physician Assistant: Salma Barros RN (Registered Nurse) MESSAGE TO CARE TEAM NAME OF CALLER:Ramona HawkinsKori NAME OF CLINICIAN:Librado MESSAGE: Patient calling with a request for authorization for a left breast ultrasound the same day she is having her right breast ultrasound. Patient states I have lumps and pain in my left breast also but forgot to let Dr. Pavon know at the time of my visit. Please advise. PHARMACY NAME: PHARMACY PHONE #: CALL BACK PHONE #:[phone] BEST TIME TO CALL BACK: Is it OK to leave detailed message on voicemail? Created on 03Jun2005 4:18pm by SALMA BARROS On 05Jun2005 10:01am JATINDER PAVON wrote: Let her know--per the scheduling screen, looks like they've already got her scheduled for the ultrasound along with the diagnostic mammo. Acknowledged by JATINDER PAVON on 10:01am On 05Jun2005 2:26pm SALMA BARROS wrote: Notified Patient per Dr. Pavon that Patient should come in to have her left breast examined or call the [facility] to discuss ultasound of the left breast. ING TECH documented in this encounter Plan of Treatment Not on filedocumented as of this encounter Visit Diagnoses Not on filedocumented in this encounter Care Teams Manager Line Relationship Specialty Start Date End Date Titus Medina MD PCP - General 09/16/1996 03/17/15 documented as of this encounter
--- OUTSIDE RECORDS SUMMARY | 2022-07-30 19:49 | XMS_ITS | Encounter Summary ---
:1945 Author Organization [facility] Address [address] [place] [address] Care Team Providers Name Role Phone Titus Medina MD Primary Care Provider Encounter Details Date Type Department Care Team Description 06/23/2005 Office Visit [place] [facility] Adi Jones, Therapy PT [facility] [address] [place], [place] [address] 4 [place] [address] [phone] (Wo rk) Social History Tobacco Use Types Packs/Day Years Used Date Smoking Tobacco: Never Assessed Sex Assigned at Date Recorded Not on file documented as of this encounter Plan of Treatment Not on filedocumented as of this encounter Visit Diagnoses Not on filedocumented in this encounter Care Teams Welt Sole Layer Relationship Specialty Start Date End Date Titus Medina MD PCP - General 09/16/1996 03/17/15 documented as of this encounter
--- OUTSIDE RECORDS SUMMARY | 2022-07-30 19:49 | XMS_ITS | Encounter Summary ---
:1945 Author Organization [employer] Address [address] [address] Care Team Providers Name Role Phone Titus Medina MD Primary Care Provider Reason for Visit Reason Comments Other Encounter Details Date Type Department Care Team Description 07/31/2005 Telephone [facility] 3800 Ear, Ramon Ariza MD Other Nose, and Throat [address] [place] [address] [place], [place] [address] [phone] Social History Tobacco Use Types Packs/Day Years Used Date Smoking Tobacco: Never Assessed Sex Assigned at Date Recorded Not on file documented as of this encounter Progress Notes Fatemeh Hannah - 07/31/2005 4:29 PM CDT Phone Note filed by Fatemeh Hannah MA at 01/19/112148 Author: Fatemeh Hannah MA Service: (none) Author Type: Circus Trainer Filed: 01/19/112148 Note Time: 07/31/051628 Status: Signed Power Barker: Fatemeh Hannah MA (Circus Trainer) Per ,Rx was called to [facility] [phone] for Clindamyacin 150mg.TID x10 days. Created on 31Jul2005 4:29pm by FATEMEH HANNAH Acknowledged by RAMON ARIZA on 8:09am TING TABLE WORKER documented in this encounter Plan of Treatment Not on filedocumented as of this encounter Visit Diagnoses Not on filedocumented in this encounter Care Teams Swager Operator Relationship Specialty Start Date End Date Titus Medina MD PCP - General 09/16/1996 03/17/15 documented as of this encounter
--- OUTSIDE RECORDS SUMMARY | 2022-07-30 19:49 | XMS_ITS | Encounter Summary ---
:1945 Author Organization [facility] Address [address] [place] [address] Care Team Providers Name Role Phone Titus Medina MD Primary Care Provider Reason for Visit Reason Comments Other Encounter Details Date Type Department Care Team Description 07/31/2005 Telephone [facility] 3800 Ear, Ramon Ariza MD Other Nose, and Throat [address] [place] [address] [place], [place] [address] [phone] Social History Tobacco Use Types Packs/Day Years Used Date Smoking Tobacco: Never Assessed Sex Assigned at Date Recorded Not on file documented as of this encounter Progress Notes Fatemeh Hannah - 07/31/2005 11:22 AM CDT Phone Note filed by Fatemeh Hannah MA at 01/19/112147 Author: Fatemeh Hannah MA Service: (none) Author Type: Filenet Admin Filed: 01/19/112147 Note Time: 07/31/051121 Status: Signed Auto Glass Worker: Fatemeh Hannah MA (Filenet Admin) Pt.is req.Abx for sinus inf. sx.headaches,greenish drainage. phone #[phone]. [facility] [phone].[facility]. Created on 31Jul2005 11:22am by FATEMEH HANNAH Acknowledged by RAMON ARIZA on 8:09am This note was completed by an automated process on September 12, 2007. E NUTRITIONIST documented in this encounter Plan of Treatment Not on filedocumented as of this encounter Visit Diagnoses Not on filedocumented in this encounter Care Teams Him Clerk Relationship Specialty Start Date End Date Titus Medina MD PCP - General 09/16/1996 03/17/15 documented as of this encounter
--- OUTSIDE RECORDS SUMMARY | 2022-07-30 19:49 | XMS_ITS | Encounter Summary ---
:1945 Author Organization [facility] Address [address] [place] [address] Care Team Providers Name Role Phone Titus Medina MD Primary Care Provider Encounter Details Date Type Department Care Team Description 2005 Nursing Visit [facility] Kaleigh Olson MD [address] [place] [address] [place] [address] [phone] Social History Tobacco Use Types Packs/Day Years Used Date Smoking Tobacco: Never Assessed Sex Assigned at Date Recorded Not on file documented as of this encounter Plan of Treatment Not on filedocumented as of this encounter Visit Diagnoses Not on filedocumented in this encounter Care Teams Baseball Scout Relationship Specialty Start Date End Date Titus Medina MD PCP - General 09/16/1996 03/17/15 documented as of this encounter
--- OUTSIDE RECORDS SUMMARY | 2022-07-30 19:49 | XMS_ITS | Encounter Summary ---
:1945 Author Organization [place] [facility] Address [address] [address] Care Team Providers Name Role Phone Titus Medina MD Primary Care Provider Reason for Visit Reason Comments Other Encounter Details Date Type Department Care Team Description 07/14/[address] [facility] [address] [facility] Care Melissa Shetty RN Other [address] [facility] [place], [place] [address] Social History Tobacco Use Types Packs/Day Years Used Date Smoking Tobacco: Never Assessed Sex Assigned at Date Recorded Not on file documented as of this encounter Progress Notes Melissa Shetty RN - 07/14/2005 9:20 PM CDT Phone Note filed by Melissa Shetty RN at 01/19/112119 Author: Melissa Shetty RN Service: (none) Author Type: Registered Nurse Filed: 01/19/112119 Note Time: 07/14/052119 Status: Signed Chemical Analytical Sampler: Melissa Shetty RN (Registered Nurse) Phone Care Triage Note [facility] Symptoms Nursing Reference - Adult IMPRESSION: Neurological symptom NON-URGENT SYMPTOMS: Headache, not worsening but persistent or recurrent, Additional Symptoms: PT has had a headache since this afternoon today; it was worse earlier where it made her feel like she was sick to her stomach; she did not vomit but lie still for 2 hours in a recliner and felt better; no vomiting or diarrhea, no dizziness at this time; does not feel up to par and continues to have a headache but it is mild ; stomach continues to feel a little quesy; no fever; PATIENT INFORMATION: Problem List: Reviewed today in LastWord INTERIM/HOME MANAGEMENT RECOMMENDATIONS: For headache: Relax or sleep in a quiet or darkened room with head elevated. Apply cool or warm compresses to head for pain relief. Ice packs to side of head may be helpful with cluster or migraine headaches. Sip small amounts of clear liquid frequently; iced liquids may be helpful with migraines. Take analgesics of preference following directions on package. Advised to callback if any of the following occur: symptoms persist or worsen, any other questions or concerns. PLAN: SCHEDULED APPOINTMENT WITHIN 48 HOURS Patient/Caller agrees with plan and denies additional questions. Denies any emergent, urgent, semi-urgent symptoms Call Complete. Created on 14Jul2005 9:20pm by MELISSA SHETTY BOY documented in this encounter Plan of Treatment Not on filedocumented as of this encounter Visit Diagnoses Not on filedocumented in this encounter Care Teams Methods Study Analyst Relationship Specialty Start Date End Date Titus Medina MD PCP - General 09/16/1996 03/17/15 documented as of this encounter
--- OUTSIDE RECORDS SUMMARY | 2022-07-30 19:49 | XMS_ITS | Encounter Summary ---
:1945 Author Organization [facility] Address [address] [place] [address] Care Team Providers Name Role Phone Titus Medina MD Primary Care Provider Encounter Details Date Type Department Care Team Description 06/16/2005 Office Visit [facility] [address] Urgent Jamir Hernandez MD Care [address] [facility] [place] [address] [place], [place] [address] [phone] Social History Tobacco Use Types Packs/Day Years Used Date Smoking Tobacco: Never Assessed Sex Assigned at Date Recorded Not on file documented as of this encounter Last Filed Vital Signs Vital Sign Reading Time Taken Comments Blood Pressure 130/77 06/16/2005 11:50 AM CDT Pulse 70 06/16/2005 11:50 AM CDT Temperature 37.3 ??C (99.1 ??F) 06/16/2005 11:50 AM CDT C: 3 7.3 C Respiratory Rate 12 06/16/2005 11:50 AM CDT Oxygen Saturation - - Inhaled Oxygen Concentration - - Weight - - Height - - Body Mass Index - - documented in this encounter Progress Notes Jamir Ascencio MD - 06/16/2005 12:01 AM CDT Progress Notes signed by Jamir Ascencio MD at 06/18/05 1150 Author: Jamir Ascencio MD Service: (none) Author Type: Physician Filed: 01/23/11 0707 Note Time: 06/16/052014 Status: Signed Silver Wrapper: Jamir Ascencio MD (Physician) NAME: YIMI GARCIA MR: [id number] ACCT: [id number] VISIT: [id number] DICTATING CLINICIAN: JAMIR ASCENCIO MD JOB: [id number] CLINIC PROGRESS NOTE DATE OF VISIT: 06/16/2005 SUBJECTIVE: She is a 59-year-old female sustaining a bug bite on her anterior neck, seen in [facility] in [place] last night. Was given hydroxyzine and ceftriaxone and asked to come back here today if there is some extension of the redness in this area. The patient is very concerned about infection and also Lyme disease. She had noticed some extension of this area. No fever or chills. ADR/ALLERGIES: REVIEWED IN LASTWORD. MEDICATIONS: Reviewed in LastWord. OBJECTIVE: VS: BP: 130/77. T: 99.1. P: 70. R: 12. The patient looks well, but concerned. She has an area of erythema, irregular borders. The bulk of it is about 4x3 cm with some tailing of it laterally and superiorly in the right neck. In the very center of it, there is a round area about 8 mm in diameter, which is slightly elevated. ASSESSMENT: Insect bite, neck, I do not think we are looking at Lyme disease or certainly infection, and I tried to reassure the patient in this regard. PLAN: Somebody obviously did decide to give her oral antibiotics, which is fine. She will return on a per-needed basis. OS:[id number] C: 06/17/05 10:36 DOCUMENT: [id number] documented in this encounter Plan of Treatment Not on filedocumented as of this encounter Visit Diagnoses Not on filedocumented in this encounter Care Teams Rn Ccu Relationship Specialty Start Date End Date Titus Medina MD PCP - General 09/16/1996 03/17/15 documented as of this encounter
--- OUTSIDE RECORDS SUMMARY | 2022-07-30 19:49 | XMS_ITS | Encounter Summary ---
:1945 [facility] Address [address] [place] [address] Care Team Providers Name Role Phone Titus Medina MD Primary Care Provider Reason for Visit Reason Comments Other Encounter Details Date Type Department Care Team Description [facility]/2005 [facility] [address] [facility] [address] [place] [address] Social History Tobacco Use Types Packs/Day Years Used Date Smoking Tobacco: Never Assessed Sex Assigned at Date Recorded Not on file documented as of this encounter Progress Notes Ramin Barros RN - 06/15/2005 4:53 PM CDT Phone Note filed by Ramin Barros RN at 01/19/112032 Author: Ramin Barros RN Service: (none) Author Type: Registered Nurse Filed: 01/19/112032 Note Time: 06/15/051652 Status: Signed Yoga Teacher: Ramin Barros RN (Registered Nurse) Patient left voice mail in regard to recent mammogram and ultra sound. Patient wanted to make sure Dr. Pavon had the reports and per the immaging reports they are in the computer. Message was left on patients voice mail. Created on 15Jun2005 4:53pm by RAMIN BARROS AL CONTROL LICENSING WORKER documented in this encounter Plan of Treatment Not on filedocumented as of this encounter Visit Diagnoses Not on filedocumented in this encounter Care Teams Alkylation Operator Relationship Specialty Start Date End Date Titus Medina MD PCP - General 09/16/1996 03/17/15 documented as of this encounter
--- OUTSIDE RECORDS SUMMARY | 2022-07-30 19:49 | XMS_ITS | Encounter Summary ---
:1945 Author Organization [facility] Address [address], [place] [address] Care Team Providers Name Role Phone Titus Medina MD Primary Care Provider Encounter Details Date Type Department Care Team Description 06/11/2005 PN Conversion Only [facility] [address] [place] [address] Social History Tobacco Use Types Packs/Day Years Used Date Smoking Tobacco: Never Assessed Sex Assigned at Date Recorded Not on file documented as of this encounter Plan of Treatment Not on filedocumented as of this encounter Procedures Procedure Name Priority Date/Time Associated Diagnosis Comme nts MM MAMMOGRAM DIAG Routine 06/11/2005 8:25 AM Resu lts for this UNILAT EXTRA VIEW CDT procedure are in the results section. documented in this encounter Results MM Mammogram Diag Unilat Extra View (06/11/2005 8:25 AM CDT) Anatomical Region Laterality Modality Breast Mammography Specimen (Source) Anatomical Location Collection Method / Collectio n Time Received Time / Laterality Volume Narrative 06/11/2005 2:33 PM CDT The patient returns today following her recent screening mammogram because of a questionable area of asymme tric density in the periareolar region on the right. This wa s seen only the CC projection. Today's right CC, right 90 d egree lateral and right CC cone compression show the area to spread partially and to not have suspicious characteristics however there remains a slight change when compared to the 2000 study. Therefore ul trasound of the right periareolar region will be scheduled. Th e patient was unable to stay today to have the ultrasound performed a nd this will be scheduled. ACR-BIRADS CATEGORY 0: Need additional i maging evaluation. [id number] Dictating DIO EDWARDS RADIOLOGIST Procedure Note Dio Padron - 12/05/2016Formattin g of this note might be different from the original. The patient returns today following her recent screening mammogram because of a questionable area of asymme tric density in the periareolar region on the right. This wa s seen only the CC projection. Today's right CC, right 90 d egree lateral and right CC cone compression show the area to spread partially and to not have suspicious characteristics however there remains a slight change when compared to the 2001 study. Therefore ul trasound of the right periareolar region will be scheduled. Th e patient was unable to stay today to have the ultrasound performed a nd this will be scheduled. ACR-BIRADS CATEGORY 0: Need additional i maging evaluation. [id number] Dictating DIO EDWARDS RADIOLOGIST Margot Pavon MD RAD VESNA documented in this encounter Visit Diagnoses Not on filedocumented in this encounter Care Teams Clamp Operator Relationship Specialty Start Date End Date Titus Medina MD PCP - General 09/16/1996 03/17/15 documented as of this encounter
--- OUTSIDE RECORDS SUMMARY | 2022-07-30 19:49 | XMS_ITS | Encounter Summary ---
:1945 Author Organization [facility] Address [address] [place] [address] Care Team Providers Name Role Phone Titus Medina MD Primary Care Provider Reason for Visit Reason Comments Other Encounter Details Date Type Department Care Team Description 07/23/2005 Telephone [facility] Ramin Landry RN Other [address] [facility] [address] [place], [place] [address] Social History Tobacco Use Types Packs/Day Years Used Date Smoking Tobacco: Never Assessed Sex Assigned at Date Recorded Not on file documented as of this encounter Progress Notes Ramin Barros RN - 07/23/2005 11:15 AM CDT Phone Note filed by Ramin Barros RN at 01/19/112134 Author: Ramin Barros RN Service: (none) Author Type: Registered Nurse Filed: 01/19/112134 Note Time: 07/23/051114 Status: Signed Interactive Marketing Strategist: Ramin Barros RN (Registered Nurse) Phone Care Triage Note [facility] Respiratory/URI Reference - Adult IMPRESSION: Respiratory Symptom SEMI-URGENT SYMPTOMS: Viral symptoms worsening after 3-5 days, cough, sore throat, runny or congested nose. Sinus congestion > 7 days accompanied by two or more of the following symptoms: thick yellow/green nasal discharge, facial or sinus pain made worse by bending over or straining, postnasal drip with sore throat and/or cough, headache, nasal speech. Additional Symptoms: 10th day of sinus congestion, sore throat, greenish sputum. PATIENT INFORMATION: Problem List: Reviewed today in LastWord --- Allergies: Reviewed/updated today in LastWord --- Medications: Reviewed/updated today in LastWord INTERIM/HOME MANAGEMENT RECOMMENDATIONS: Get adequate rest, elevate head, increase fluid intake. For nasal congestion: take steamy showers, inhale warm, moist air for respiratory comfort, use saline drops or nasal sprays. For sore throat: OTC analgesics can be taken for discomfort as directed on package. For cough: sleep with head elevated, drink warm liquids. OTC analgesics can be taken for discomfort as directed on package. Information given per: [facility] URI Nursing Reference Advised to callback if any of the following occur: symptoms worsen, symptoms do not improve with home management, PLAN: Patient will call back and make an appt when transportation is arranged. Patient/Caller agrees with plan and denies additional questions. Denies any emergent, urgent symptoms Call Complete. Created on 23Jul2005 11:15am by RAMIN BARROS NATION SPINNER documented in this encounter Plan of Treatment Not on filedocumented as of this encounter Visit Diagnoses Not on filedocumented in this encounter Care Teams Can Sorter Relationship Specialty Start Date End Date Titus Medina MD PCP - General 09/16/1996 03/17/15 documented as of this encounter
--- OUTSIDE RECORDS SUMMARY | 2022-07-30 19:49 | XMS_ITS | Encounter Summary ---
:1945 Author Organization [facility] Address [address] [place] [address] Care Team Providers Name Role Phone Titus Medina MD Primary Care Provider Encounter Details Date Type Department Care Team Description 07/20/2005 Office Visit [facility] [address] Ear, Ramon Ariza MD Nose, and Throat [address] [place] [address] [place], [place] [address] [phone] Social History Tobacco Use Types Packs/Day Years Used Date Smoking Tobacco: Never Assessed Sex Assigned at Date Recorded Not on file documented as of this encounter Progress Notes Ramon Ariza MD - 07/20/2005 12:01 AM CDT Progress Notes signed by Ramon Ariza MD at 08/03/05 0813 Author: Ramon Ariza MD Service: (none) Author Type: Physician Filed: 01/23/11 0747 Note Time: 07/20/052014 Status: Signed Tool Dispatcher: Ramon Ariza MD (Physician) NAME: YIMI GARCIA MR: [id number] ACCT: [id number] VISIT: [id number] DICTATING CLINICIAN: RAMON ARIZA MD JOB: [id number] CLINIC PROGRESS NOTE DATE OF VISIT: 07/20/2005 SUBJECTIVE: Ms. Garcia presents for follow up. Status post somnoplasty, submucous resection of the turbinates. She is doing very well. OBJECTIVE: Physical exam shows turbinates to be in good position. They are not overly enlarged and the nasal cavities are patent. ASSESSMENT: Doing well. PLAN: See above. SMC:[id number] C: 07/22/05 07:15 DOCUMENT: [id number] E TESTER documented in this encounter Plan of Treatment Not on filedocumented as of this encounter Visit Diagnoses Not on filedocumented in this encounter Care Teams Licensed Direct Entry Midwife Relationship Specialty Start Date End Date Titus Medina MD PCP - General 09/16/1996 03/17/15 documented as of this encounter
--- OUTSIDE RECORDS SUMMARY | 2022-07-30 19:49 | XMS_ITS | Encounter Summary ---
:1945 Author Organization [facility] Address [address] [place] [address] Care Team Providers Name Role Phone Titus Medina MD Primary Care Provider Encounter Details Date Type Department Care Team Description 07/02/2005 Office Visit [facility] Jatinder Hi MD [address] [employer] [employer] [place] [address] [place] [id number] [phone] Social History Tobacco Use Types Packs/Day Years Used Date Smoking Tobacco: Never Assessed Sex Assigned at Date Recorded Not on file documented as of this encounter Progress Notes Jatinder Pavon MD - 07/02/2005 12:01 AM CDT Progress Notes signed by Jatinder Pavon MD at 07/29/05 0805 Author: Jatinder Pavon MD Service: (none) Author Type: Physician Filed: 01/23/11 0727 Note Time: 07/02/052014 Status: Signed Cattle Feeder: Jatinder Pavon MD (Physician) NAME: YIMI GARCIA MR: [id number] ACCT: [id number] VISIT: [id number] DICTATING CLINICIAN: JATINDER PAVON MD JOB: [id number] CLINIC PROGRESS NOTE DATE OF VISIT: 07/02/2005 SUBJECTIVE: : 1945. Chief Complaint: Check breast lump. This is a 59-year-old female who has had a breast lump evaluated with mammogram and ultrasound that appears to be a fibrocystic nodule. She wants to make sure that the physical examination agreed with that. It is in the right breast at the 9:30 o'clock position and palpable to her. She is in the process of getting off her hormone replacement therapy. She is on her last estrogen patch and she has been off progesterone for a week. Having a little bit of sleep disruption and wonders if she can have a refill on her Atarax. She is planning on having the ultrasound repeated per recommendation in 6 months. Has multiple questions about hormone replacement and fibrocystic breast disease. OBJECTIVE: VS: BP: 140/70. P: 72. Wt: 179. On exam her right breast has mild palpable fullness at the 9:30 o'clock position that correlates with the area seen on ultrasound. Nothing that appears dangerous about the area on palpation. No fixed, hard density and no skin changes. The remainder of the breast exam was unremarkable. ASSESSMENT: A breast fibrocystic finding on ultrasound. PLAN: Repeat ultrasound in 6 months as above. Agreed with patient's plan to get off hormone replacement therapy and discussed the likely implications for improving her fibrocystic breast symptoms as well. FAMILIA:[id number] C: 07/27/05 12:25 DOCUMENT: [id number] documented in this encounter Plan of Treatment Not on filedocumented as of this encounter Visit Diagnoses Not on filedocumented in this encounter Care Teams Ironer Sock Relationship Specialty Start Date End Date Titus Medina MD PCP - General 09/16/1996 03/17/15 documented as of this encounter
--- OUTSIDE RECORDS SUMMARY | 2022-07-30 19:50 | XMS_ITS | Encounter Summary ---
:1945 Author Organization [facility] Address [address] [place] [address] Care Team Providers Name Role Phone Titus Medina MD Primary Care Provider Encounter Details Date Type Department Care Team Description 08/15/2003 PN Conversion Only CONV [id number] Ángel Turk [address] Khanna MD [facility] [address] [place], [place] [address] (Wo rk) Social History Tobacco Use Types Packs/Day Years Used Date Smoking Tobacco: Never Assessed Sex Assigned at Date Recorded Not on file documented as of this encounter Progress Notes Ángel Hodgson MD - 08/15/2003 12:01 AM CST Progress Notes signed by Ángel Hodgson MD at 08/20/03 0624 Author: Ángel Hodgson MD Service: (none) Author Type: Physician Filed: 01/22/11 1709 Note Time: 08/15/03 0001 Status: Signed Equip Maint Eng: Ángel Hodgson MD (Physician) NAME: YIMI GARCIA MR: [id number] ACCT: [id number] VISIT: [id number] DICTATING CLINICIAN: ÁNGEL HODGSON MD JOB: [id number] CLINIC PROGRESS NOTE DATE OF VISIT: 08/15/2003 SUBJECTIVE: Patient seen for sclerotherapy today. The patient prepaid for injections today. OBJECTIVE: Half-strength hypertonic saline was used as a local sclerosing agent to varicosities in her right and left leg. Patient tolerated the procedure quite well. Philip wraps were applied. ASSESSMENT: PLAN: Patient will follow up in three weeks. TT: CT: [id number] C: 08/16/03 11:32 DOCUMENT: [id number] ENTICE CARPENTER documented in this encounter Plan of Treatment Not on filedocumented as of this encounter Visit Diagnoses Not on filedocumented in this encounter Care Teams Line Palletizer Relationship Specialty Start Date End Date Titus Medina MD PCP - General 09/16/1996 03/17/15 documented as of this encounter
--- OUTSIDE RECORDS SUMMARY | 2022-07-30 19:50 | XMS_ITS | Encounter Summary ---
:1945 Author Organization [facility] Address [address] [place] [address] Care Team Providers Name Role Phone Titus Medina MD Primary Care Provider Encounter Details Date Type Department Care Team Description 04/13/2003 PN Conversion Only [facility] CONVERSION Margot Pavon MD [address] [place], [place] [address] [address] [place], [place] [address] (Wo rk) Social History Tobacco Use Types Packs/Day Years Used Date Smoking Tobacco: Never Assessed Sex Assigned at Date Recorded Not on file documented as of this encounter Plan of Treatment Not on filedocumented as of this encounter Procedures Procedure Name Priority Date/Time Associated Comments Diagnosis ANATOMICAL PATH Routine 04/13/2003 10:11 AM Resul ts for this LIQUID BASED CDT procedure are i n the results section. documented in this encounter Results Pap Smear (04/13/2003 10:11 AM CDT) [facility] Time Signature PAP Smear SEE TEXT No normal [place] CONVERSION Liquid Based range Comment: Patient: YIMI GARCIA ? CERVICAL CYTOLOGY REPORT Pathology # ??[id number] ?Date Obtained: ? Date Received: LMP: ?FISH HOUSEKEEPER CLINICAL HIST LIQUID BASED PAP CERVICAL SPECIMEN ADEQUACY: ?? Satisfactory. ENDOCERVICAL CELLS: ??Absent; patient is post-menopausal. CYTOLOGIC IMPRESSION: Negative for intraepithelial lesion or m alignancy. Verified 04/21/03 by: ??SN ? (electronic signature) Specimen (Source) Anatomical Collection Method Collection Time Re ceived Time Location / / Volume Laterality 04/13/2003 10:11 AM CDT Margot Pavon MD LAB_1 Performing Organization Address City/State/ZIP Code Phon e Number [place] CONVERSION documented in this encounter Visit Diagnoses Not on filedocumented in this encounter Care Teams Shove Up Relationship Specialty Start Date End Date Titus Medina MD PCP - General 09/16/1996 03/17/15 documented as of this encounter
--- OUTSIDE RECORDS SUMMARY | 2022-07-30 19:50 | XMS_ITS | Encounter Summary ---
:1945 Author Organization [facility] Address [address] [place] [address] Care Team Providers Name Role Phone Titus Medina MD Primary Care Provider Encounter Details Date Type Department Care Team Description 04/29/2004 PN Conversion Only CREEKSIDE CONVERSION Margot Pavon MD [address] [place], [place] [address] [address] [place], [place] [address] (Wo rk) Social History Tobacco Use Types Packs/Day Years Used Date Smoking Tobacco: Never Assessed Sex Assigned at Date Recorded Not on file documented as of this encounter Plan of Treatment Not on filedocumented as of this encounter Procedures Procedure Name Priority Date/Time Associated Comments Diagnosis GLUCOSE Routine 04/29/2004 11:31 AM Results for this CDT procedure are i n the results section. LIPID PANEL AND Routine 04/29/2004 11:31 AM Resul ts for this DIRECT LDL(IF CDT procedure are in NEEDED) the results section. ANATOMICAL PATH Routine 04/29/2004 8:56 AM Result s for this LIQUID BASED CDT procedure are i n the results section. documented in this encounter Results (ABNORMAL) Lipid Panel and Direct LDL(If Needed) (04/29/2004 11:31 AM CDT) [facility] gist Method Time Signature Cholesterol/HDL 2.9 No normal HP CONVERSION Ratio Screen range Cholesterol 181 125 - 199 HP CONVERSION mg/dL HDL Cholesterol 62 (H) 40 - 60 HP CONVERSION mg/dL Triglycerides 86 0 - 199 HP CONVERSION mg/dL LDL Calculated 102 66 - 129 HP CONVERSION mg/dL Specimen (Source) Anatomical Collection Method Collection Time Re ceived Time Location / / Volume Laterality 04/29/2004 11:31 AM CDT Margot Pavon MD LAB_1 Performing Organization Address City/[facility]/ZIP Code Phon e Number HP CONVERSION Glucose (04/29/2004 11:31 AM CDT) P athologist Signature Lab Glucose 91 60 - 100 HP CONVERSION mg/dL Specimen (Source) Anatomical Collection Method Collection Time Re ceived Time Location / / Volume Laterality 04/29/2004 11:31 AM CDT Margot Pavon MD LAB_1 Performing Organization Address City/[facility] Code Phon e Number HP CONVERSION Pap Smear (04/29/2004 8:56 AM CDT) Patholo gist Method Time Signature PAP Smear SEE TEXT No normal HP CONVERSION Liquid Based range Comment: Patient: YIMI GARCIA ? CERVICAL CYTOLOGY REPORT Pathology # ??[id number] ?Date Obtained: ? Date Received: CYTOLOGIC IMPRESSION: Negative for intraepithelial lesion or m alignancy. ? BRODERICK TIONAL DATA LMP: ?GLASS MOULD CLEANER CLINICAL HIST LIQUID BASED PAP CERVICAL SPECIMEN ADEQUACY: ?? Satisfactory. ENDOCERVICAL CELLS: ??Present. Verified 05/09/04 by: ??KGM ?(electronic signature) Specimen (Source) Anatomical Collection Method Collection Time Re ceived Time Location / / Volume Laterality 04/29/2004 8:56 AM CDT Margot Pavon MD LAB_1 Performing Organization Address City/State/ZIP Code Phon e Number HP CONVERSION documented in this encounter Visit Diagnoses Not on filedocumented in this encounter Care Teams Keyseater Operator Relationship Specialty Start Date End Date Titus Medina MD PCP - General 09/16/1996 03/17/15 documented as of this encounter
--- OUTSIDE RECORDS SUMMARY | 2022-07-30 19:50 | XMS_ITS | Encounter Summary ---
:1945 Author Organization [facility] Address [address] [place] [address] Care Team Providers Name Role Phone Titus Medina MD Primary Care Provider Encounter Details Date Type Department Care Team Description 04/03/2004 Office Visit [facility] Adi Jones, Therapy PT [address] [facility] [place], [place] [address] [place] [address] [phone] (Wo rk) Social History Tobacco Use Types Packs/Day Years Used Date Smoking Tobacco: Never Assessed Sex Assigned at Date Recorded Not on file documented as of this encounter Plan of Treatment Not on filedocumented as of this encounter Visit Diagnoses Not on filedocumented in this encounter Care Teams Grievance And Appeals Coordinator Relationship Specialty Start Date End Date Titus Medina MD PCP - General 09/16/1996 03/17/15 documented as of this encounter
--- OUTSIDE RECORDS SUMMARY | 2022-07-30 19:50 | XMS_ITS | Encounter Summary ---
:1945 Author Organization [facility] Address [address] [place] [address] Care Team Providers Name Role Phone Titus Medina MD Primary Care Provider Encounter Details Date Type Department Care Team Description 10/15/2004 Office Visit [facility] 3900 Dwayne Herring MD [address] [place] [address] [address] [facility] [phone] [place], [place] [id number] Social History Tobacco Use Types Packs/Day Years Used Date Smoking Tobacco: Never Assessed Sex Assigned at Date Recorded Not on file documented as of this encounter Progress Notes Dwayne Simmons MD - 10/15/2004 12:01 AM CST Progress Notes signed by Dwayne Simmons MD at 10/21/04 1334 Author: Dwayne Simmons MD Service: (none) Author Type: Physician Filed: 01/23/11 0232 Note Time: 10/15/04 0001 Status: Signed Shirt Maker: Dwayne Simmons MD (Physician) NAME: YIMI GARCIA MR: [id number] ACCT: [id number] VISIT: [id number] DICTATING CLINICIAN: DWAYNE SIMMONS MD JOB: [id number] CLINIC PROGRESS NOTE DATE OF VISIT: 10/15/2004 SUBJECTIVE: The patient is desirous of proceeding with her redo procedure. She has had a laparoscopic birch procedure and failure. She has a positive Elia test. I thought that we might have to do a ureterolysis. Talked about entering inadvertently the urethra and that may lead to having to wear a catheter if we had to sew her urethra shut to be open. We have talked about doing a spinal. I have talked about doing secondary procedures such as Durasphere, if she needed to be more continent. She has asked questions and would like to proceed. I also note that we talked about urethral compression and induced urgency and that this is a very severe problem. OBJECTIVE: ASSESSMENT: PLAN: [id number] C: 10/16/04 04:41 DOCUMENT: [id number] MARKETING REPRESENTATIVE documented in this encounter Plan of Treatment Not on filedocumented as of this encounter Visit Diagnoses Not on filedocumented in this encounter Care Teams Real Estate Site Analyst Relationship Specialty Start Date End Date Titus Medina MD PCP - General 09/16/1996 03/17/15 documented as of this encounter
--- OUTSIDE RECORDS SUMMARY | 2022-07-30 19:50 | XMS_ITS | Encounter Summary ---
:1945 Author Organization [facility] Address [address] [place] [address] Care Team Providers Name Role Phone Titus Medina MD Primary Care Provider Encounter Details Date Type Department Care Team Description 08/05/2004 Office Visit [place] [facility] Adi Jones, Therapy PT [address] [facility] [place], [place] [address] [place] [address] [phone] (Wo rk) Social History Tobacco Use Types Packs/Day Years Used Date Smoking Tobacco: Never Assessed Sex Assigned at Date Recorded Not on file documented as of this encounter Plan of Treatment Not on filedocumented as of this encounter Visit Diagnoses Not on filedocumented in this encounter Care Teams Administrative Office Assistant Relationship Specialty Start Date End Date Titus Medina MD PCP - General 09/16/1996 03/17/15 documented as of this encounter
--- OUTSIDE RECORDS SUMMARY | 2022-07-30 19:50 | XMS_ITS | Encounter Summary ---
:1945 Author Organization [facility] Address [address] [place] [address] Care Team Providers Name Role Phone Titus Medina MD Primary Care Provider Encounter Details Date Type Department Care Team Description 11/10/2004 Office Visit [facility] 3800 Ear, Ramon Ariza MD Nose, and Throat [address] [facility] [address] [facility] [address] [place] [address] [place], [place] [address] [phone] Social History Tobacco Use Types Packs/Day Years Used Date Smoking Tobacco: Never Assessed Sex Assigned at Date Recorded Not on file documented as of this encounter Progress Notes Ramon Ariza MD - 11/10/2004 12:01 AM CST Progress Notes signed by Ramon Ariza MD at 12/18/04 1536 Author: Ramon Ariza MD Service: (none) Author Type: Physician Filed: 01/23/11 0303 Note Time: 11/10/04 0001 Status: Signed Armor Reconnaissance Specialist: Ramon Ariza MD (Physician) NAME: YIMI GARCIA MR: [id number] ACCT: [id number] VISIT: [id number] DICTATING CLINICIAN: RAMON ARIZA MD JOB: [id number] CLINIC PROGRESS NOTE DATE OF VISIT: 11/10/2004 SUBJECTIVE: Ms. Garcia returns for follow up. She has a history of turbinectomy. She continues to have some rhinitis. The turbinectomy previously was performed with radiofrequency reduction. OBJECTIVE: Shows 59-year-old woman in no apparent distress. She does continue to have turbinate hypertrophy. 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 She may benefit from SMR submucous resection of turbinate in the operating room. Risks, benefits and alternatives were thoroughly discussed. PLAN: She would like to proceed. SMC:[id number] C: 12/01/04 13:59 DOCUMENT: [id number] EAR SUPERVISING OPERATOR documented in this encounter Plan of Treatment Not on filedocumented as of this encounter Visit Diagnoses Not on filedocumented in this encounter Care Teams Truck Guard Relationship Specialty Start Date End Date Titus Medina MD PCP - General 09/16/1996 03/17/15 documented as of this encounter
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
--- OUTSIDE RECORDS SUMMARY | 2022-07-30 19:50 | XMS_ITS | Encounter Summary ---
:1945 Author Organization [facility] Address [address] [place] [address] Care Team Providers Name Role Phone Titus Medina MD Primary Care Provider Encounter Details Date Type Department Care Team Description 05/08/2004 Office Visit [place] [facility] Adi Jones, Therapy PT [address] [facility] [place], [place] [address] [place] [address] [phone] (Wo rk) Social History Tobacco Use Types Packs/Day Years Used Date Smoking Tobacco: Never Assessed Sex Assigned at Date Recorded Not on file documented as of this encounter Plan of Treatment Not on filedocumented as of this encounter Visit Diagnoses Not on filedocumented in this encounter Care Teams Bmet Relationship Specialty Start Date End Date Titus Medina MD PCP - General 09/16/1996 03/17/15 documented as of this encounter
--- OUTSIDE RECORDS SUMMARY | 2022-07-30 19:50 | XMS_ITS | Encounter Summary ---
:1945 Author [facility] Address [address] [place] [address] Care Team Providers Name Role Phone Titus Medina MD Primary Care Provider Encounter Details Date Type Department Care Team Description 02/26/[address] [facility] 3800 Edward Smith MD Density 3800 [facility] [address] [facility] [place] [phone] (Wo rk) Social History Tobacco Use Types Packs/Day Years Used Date Smoking Tobacco: Never Assessed Sex Assigned at Date Recorded Not on file documented as of this encounter Progress Notes Edward Anderson MD - 02/26/2005 12:01 AM CDT Progress Notes signed by Edward Anderson MD at 03/06/05 1327 Author: Edward Anderson MD Service: (none) Author Type: Physician Filed: 01/23/11 0511 Note Time: 02/26/05 0001 Status: Signed Network Control Supervisor: Edward Anderson MD (Physician) NAME: YIMI GARCIA MR: [id number] ACCT: [id number] VISIT: [id number] DICTATING CLINICIAN: EDWARD ANDERSON MD JOB: [id number] CLINIC DEXA REPORT DATE OF VISIT: 02/26/2005 SUBJECTIVE: REFERRING PROVIDER: SHANELL YAÑEZ MD INTERPRETING PHYSICIAN: EDWARD ANDERSON MD OSTEOPOROSIS RISK FACTORS FROM PATIENT QUESTIONNAIRE: Postmenopausal, maternal history of vertebral fracture. Calcium intake is adequate, on HRT. OBJECTIVE: SITE BMD T-SCORE* %PEAK Z-SCORE %MATCHED ADULT PEER L1-L4 0.982 -0.6 94% 0.7 109% L Tot Hip 0.842 -0.8 89% 0.0 101% L Fem Neck -0.9 Compared to the prior study of 2002, there has been a 3.1% decrease in spine bone density. There has been no clear significant change in total hip bone density. * The T-score = Standard Deviations Above/Below Mean Peak Adult The Z-score = Standard Deviations Above/Below Mean Age/Sex - Matched Peers WHO DEFINITIONS: Normal BMD: T-score > -1.0 Osteopenia: T-score between -1.0 and -2.5 Osteoporosis: T-score < -2.5 ASSESSMENT: Normal bone density. In spite of a modest bone loss noted in spine over the last two years, no increased fracture risk is apparent. RECOMMENDATIONS: 1. Maintain optimal calcium and vitamin D intake. 2. Repeat bone density study in four years. FINAL IMPRESSION: Bone density on Hologic [place] C. JTS:[id number] C: 03/05/05 08:09 DOCUMENT: [id number] documented in this encounter Plan of Treatment Not on filedocumented as of this encounter Visit Diagnoses Not on filedocumented in this encounter Care Teams Public Address Servicer Relationship Specialty Start Date End Date Titus Medina MD PCP - General 09/16/1996 03/17/15 documented as of this encounter
--- OUTSIDE RECORDS SUMMARY | 2022-07-30 19:50 | XMS_ITS | Encounter Summary ---
:1945 Author Organization [facility] Address [address] [place] [address] Care Team Providers Name Role Phone Titus Medina MD Primary Care Provider Reason for Visit Reason Comments Other Encounter Details Date Type Department Care Team Description 02/25/2005 Telephone [facility] 3800 Ear, Ramon Ariza MD Other Nose, and Throat [address] [facility] [place] [address] [place], [place] [address] [phone] Social History Tobacco Use Types Packs/Day Years Used Date Smoking Tobacco: Never Assessed Sex Assigned at Date Recorded Not on file documented as of this encounter Progress Notes Parul Torres RN - 02/25/2005 10:30 AM CDT Phone Note filed by Parul Torres RN at 01/19/111827 Author: Parul Torres RN Service: (none) Author Type: Registered Nurse Filed: 01/19/111827 Note Time: 02/25/05 1030 Status: Signed Wireless Network Engineer: Parul Torres RN (Registered Nurse) pt calling for a new script for Astelin nasal spray 30ml. Per verbal order faxed Astelin script to [facility]. Created on 25Feb2005 10:30am by PARUL TORRES Acknowledged by RAMON ARIZA on 11:46am COLOR MIXER documented in this encounter Plan of Treatment Not on filedocumented as of this encounter Visit Diagnoses Not on filedocumented in this encounter Care Teams Assembler Musical Equipment Relationship Specialty Start Date End Date Titus Medina MD PCP - General 09/16/1996 03/17/15 documented as of this encounter
--- OUTSIDE RECORDS SUMMARY | 2022-07-30 19:50 | XMS_ITS | Encounter Summary ---
:1945 Author Organization [facility] Address [address] [place] [address] Care Team Providers Name Role Phone Titus Medina MD Primary Care Provider Encounter Details Date Type Department Care Team Description 03/27/2004 Office Visit [place] [facility] Adi Jones, Therapy PT [address] [facility] [place], [place] [address] 4 [place] [address] [phone] (Wo rk) Social History Tobacco Use Types Packs/Day Years Used Date Smoking Tobacco: Never Assessed Sex Assigned at Date Recorded Not on file documented as of this encounter Plan of Treatment Not on filedocumented as of this encounter Visit Diagnoses Not on filedocumented in this encounter Care Teams Track Repair Supervisor Relationship Specialty Start Date End Date Titus Medina MD PCP - General 09/16/1996 03/17/15 documented as of this encounter
--- OUTSIDE RECORDS SUMMARY | 2022-07-30 19:50 | XMS_ITS | Encounter Summary ---
:1945 Author [facility] Address [address] [place] [address] Care Team Providers Name Role Phone Titus Medina MD Primary Care Provider Encounter Details Date Type Department Care Team Description 03/27/2005 Office Visit [facility] Jatinder Hi MD [address] [employer] [place] [address] [place] [id number] [phone] Social History Tobacco Use Types Packs/Day Years Used Date Smoking Tobacco: Never Assessed Sex Assigned at Date Recorded Not on file documented as of this encounter Last Filed Vital Signs Vital Sign Reading Time Taken Comments Blood Pressure 112/74 03/27/2005 2:05 PM CDT Pulse 66 03/27/2005 2:05 PM CDT Temperature - - Respiratory Rate - - Oxygen Saturation - - Inhaled Oxygen Concentration - - Weight 78.5 kg (172 lb 15.9 oz) 03/27/2005 2:05 PM CDT C: 78.5kg Height - - Body Mass Index - - documented in this encounter Progress Notes Jatinder Pavon MD - 03/27/2005 12:01 AM CDT Progress Notes signed by Jatinder Pavon MD at 04/18/05 5634 Author: Jatinder Pavon MD Service: (none) Author Type: Physician Filed: 01/23/11 0542 Note Time: 03/27/05 0001 Status: Signed Cook House Laborer: Jatinder Pavon MD (Physician) NAME: YIMI GARCIA MR: [id number] ACCT: [id number] VISIT: [id number] DICTATING CLINICIAN: JATINDER PAVON MD JOB: [id number] CLINIC PROGRESS NOTE DATE OF VISIT: 03/27/2005 SUBJECTIVE: Chief Complaint: Follow up. The patient is here for follow up on multiple issues. 1. Bone density results which showed no more bone loss and follow up in 4 years was suggested. 2. Secondly, she has heard about adding zinc for tinnitus. Wondered if I had any knowledge of that. Discussed that I had not heard of that and cautioned against overuse. 3. She saw 2 different urologists regarding her urinary incontinence. Urologist at the suggested doing a urethral sling first before going right to a bladder sling. She wondered if I knew anything about him and we reviewed his on-line CV. 4. Next, she notes her blood pressure has been well controlled at home. 5. Next, she has a head tremor that she has noticed. It is not interfering with function, not noticing any hand tremor. Simply had a family member comment that her head at rest was shaky and she now notices that. Not bad enough to want to take any medications for it. She does note that her neck muscles feel weak. She has some chronic neck pain and would like to see physical therapy for a refresher on exercise instructions. 6. Next, she notes she is hormone replacement therapy. We have discussed stopping them. She has had side effects and would like to continue and understands risks and benefits based on Women's Health Initiative study. OBJECTIVE: VS: BP: 112/74. P: 66. Wt: 173. GENERAL: Healthy appearing female in no acute distress. Does have benign appearing head tremor. No hand tremor. No cogwheeling. Normal face musculature. Normal gait. ASSESSMENT: 1. Hypertension, good control. 2. Incontinence. 3. 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 4. Menopausal symptoms. 5. Neck pain. PLAN: Schedule mammogram and colonoscopy. Physical therapy for the neck muscles. Prescriptions are refilled and faxed to her mail order pharmacy. She will follow up p.r.n. for preop prior to bladder repair. Discussed use of beta ramin for benign tremor and she does not feel that it is necessary at this point. FAMILIA:[id number] C: 04/01/05 12:47 DOCUMENT: [id number] documented in this encounter Plan of Treatment Not on filedocumented as of this encounter Visit Diagnoses Not on filedocumented in this encounter Care Teams Drawing Press Operator Relationship Specialty Start Date End Date Titus Medina MD PCP - General 09/16/1996 03/17/15 documented as of this encounter
--- OUTSIDE RECORDS SUMMARY | 2022-07-30 19:50 | XMS_ITS | Encounter Summary ---
:1945 Author [facility] Address [address], [place] [address] Care Team Providers Name Role Phone Titus Medina MD Primary Care Provider Reason for Visit Reason Comments Other Encounter Details Date Type Department Care Team Description 12/01/2004 Telephone [facility] [address] [facility], Message Other [address] [place], [place] [id number] Social History Tobacco Use Types Packs/Day Years Used Date Smoking Tobacco: Never Assessed Sex Assigned at Date Recorded Not on file documented as of this encounter Progress Notes Alyssa Draper - 12/01/2004 2:48 PM CST Phone Note filed by Alyssa Draper RN at 01/19/111657 Author: Alyssa Draper RN Service: (none) Author Type: (none) Filed: 01/19/111657 Note Time: 12/01/041447 Status: Signed Patient Scheduling Coordinator: Winnie Martinez Pt requesting refills on Guiafenex LA 600. 1 tab po bid. Last dictation states return prn, do you want this refilled? And how many times? Sosadenia Jameson, tel: [phone] Created on 01Dec2004 2:48pm by ALYSSA DRAPER On 01Dec2004 3:17pm LATOYA FINCH wrote: OK to refill x 6 but after this she would have to see me for a f/u. Acknowledged by LATOYA FINCH on 3:17pm On 01Dec2004 3:36pm ELENA BRANCH wrote: spoke with pharmicist, guaifenex no longer available thru rx , now OTC as musinex 600 mg or as robitussin. message left on pts.ans. machine.wth this info. documented in this encounter Plan of Treatment Not on filedocumented as of this encounter Visit Diagnoses Not on filedocumented in this encounter Care Teams Stroke Coordinator Relationship Specialty Start Date End Date Titus Medina MD PCP - General 09/16/1996 03/17/15 documented as of this encounter
--- OUTSIDE RECORDS SUMMARY | 2022-07-30 19:50 | XMS_ITS | Encounter Summary ---
:1945 Author Organization [facility] Address [address] [place] [address] Care Team Providers Name Role Phone Titus Medina MD Primary Care Provider Encounter Details Date Type Department Care Team Description 07/09/2004 Office Visit [place] [address] [address] Almanza [address] [place] [address] Social History Tobacco Use Types Packs/Day Years Used Date Smoking Tobacco: Never Assessed Sex Assigned at Date Recorded Not on file documented as of this encounter Progress Notes Stephy Castro - 07/09/2004 12:01 AM CDT Progress Notes signed by ALYCIA Alvarado at 07/14/04 0933 Author: ALYCIA Alvarado Service: (none) Author Type: Refinery Process Engineer Filed: 01/23/11 0049 Note Time: 07/09/04 0001 Status: Signed Print Machine Operator: ALYCIA Alvarado (Refinery Process Engineer) NAME: YIMI GARCIA MR: [id number] ACCT: [id number] VISIT: [id number] DICTATING CLINICIAN: ALYCIA ALVARADO JOB: [id number] CLINIC PROGRESS NOTE DATE OF VISIT: 07/09/2004 SUBJECTIVE: : 1945 Yimi Garcia, age 58, was seen today for an annual recheck of her hearing. Most recent audiologic assessment from December 2002 revealed a moderate low-frequency hearing loss rising to hearing within normal limits from 1500 to 8000 [address]z. The patient reports an occasional roar bilaterally and occasional tinnitus bilaterally which seems to fluctuate in pitch. She is unsure if her hearing has changed. OBJECTIVE: Responses to pure tones reveal a moderate low-frequency sensorineural hearing loss, rising to hearing within normal limits from 1500 to 8000 Hertz. At a level of 55 dB HL, word recognition ability was 100% in the right ear and 96% in the left ear. ASSESSMENT: Stable low-frequency sensorineural hearing loss bilaterally as compared to result from December 2002. At a normal conversational level, excellent word recognition ability was obtained bilaterally. These results were discussed with the patient. It is recommended her hearing be rechecked in one to two years, sooner if a change is noted. PLAN: Recheck hearing in one to two years, sooner if a change is noted. IMPRESSION: Stable low-frequency sensorineural hearing loss bilaterally. SAH:[id number] C: 07/10/04 11:10 DOCUMENT: [id number] documented in this encounter Plan of Treatment Not on filedocumented as of this encounter Visit Diagnoses Not on filedocumented in this encounter Care Teams Laboratory Coordinator Relationship Specialty Start Date End Date Titus Medina MD PCP - General 09/16/1996 03/17/15 documented as of this encounter
--- OUTSIDE RECORDS SUMMARY | 2022-07-30 19:50 | XMS_ITS | Encounter Summary ---
:1945 Author Organization [facility] Address [address] [place] [address] Care Team Providers Name Role Phone Titus Medina MD Primary Care Provider Encounter Details Date Type Department Care Team Description 04/10/2004 Office Visit [place] [facility] Adi Jones, [facility] PT [address] [facility] [place] [address] [place] [address] [phone] (Wo rk) Social History Tobacco Use Types Packs/Day Years Used Date Smoking Tobacco: Never Assessed Sex Assigned at Date Recorded Not on file documented as of this encounter Plan of Treatment Not on filedocumented as of this encounter Visit Diagnoses Not on filedocumented in this encounter Care Teams Export Clerk Relationship Specialty Start Date End Date Titus Medina MD PCP - General 09/16/1996 03/17/15 documented as of this encounter
--- OUTSIDE RECORDS SUMMARY | 2022-07-30 19:50 | XMS_ITS | Encounter Summary ---
:1945 Author Organization [facility] Address [address] [place] [address] Care Team Providers Name Role Phone Titus Medina MD Primary Care Provider Encounter Details Date Type Department Care Team Description 06/26/2004 Office Visit [place] [facility], [facility] [address] [facility] [address] [place], [place] [address] [place] [address] [phone] (Wo rk) Social History Tobacco Use Types Packs/Day Years Used Date Smoking Tobacco: Never Assessed Sex Assigned at Date Recorded Not on file documented as of this encounter Plan of Treatment Not on filedocumented as of this encounter Visit Diagnoses Not on filedocumented in this encounter Care Teams Ordnance Truck Installation Mechanic Relationship Specialty Start Date End Date Titus Medina MD PCP - General 09/16/1996 03/17/15 documented as of this encounter
--- OUTSIDE RECORDS SUMMARY | 2022-07-30 19:50 | XMS_ITS | Encounter Summary ---
:1945 Author Organization [facility] Address [address] [place] [address] Care Team Providers Name Role Phone Titus Medina MD Primary Care Provider Encounter Details Date Type Department Care Team Description 05/28/2005 Office Visit [facility] Jatinder Hi MD [address] [place] [address] [place] [id number] [phone] Social History Tobacco Use Types Packs/Day Years Used Date Smoking Tobacco: Never Assessed Sex Assigned at Date Recorded Not on file documented as of this encounter Last Filed Vital Signs Vital Sign Reading Time Taken Comments Blood Pressure 130/72 05/28/2005 2:51 PM CDT Pulse 64 05/28/2005 2:51 PM CDT Temperature 36.8 ??C (98.2 ??F) 05/28/2005 2:51 PM C: 36.8 C CDT Respiratory Rate - - Oxygen Saturation - - Inhaled Oxygen Concentration - - Weight 79.8 kg (175 lb 15.9 oz) 05/28/2005 2:51 PM C: 7 9.8kg CDT Height 170.2 cm (5' 7) 05/28/2005 2:51 PM C: 170.2cm CDT Body Mass Index 27.56 05/28/2005 2:51 PM CDT documented in this encounter Progress Notes Jatinder Pavon MD - 05/28/2005 12:01 AM CDT Progress Notes signed by Jatinder Pavon MD at 07/01/05 1112 Author: Jatinder Pavon MD Service: (none) Author Type: Physician Filed: 01/23/11 0648 Note Time: 05/28/052014 Status: Signed Army Manager: Jatinder Pavon MD (Physician) NAME: YIMI GARCIA MR: [id number] ACCT: [id number] VISIT: [id number] DICTATING CLINICIAN: JATINDER PAVON MD JOB: [id number] CLINIC PROGRESS NOTE DATE OF VISIT: 05/28/2005 SUBJECTIVE: Chief Complaint: Physical. This 59-year-old female is here for routine physical. She is overall feeling very well, does not have any active concerns. PAST MEDICAL HISTORY: She has cystocele. She is planning on having a bladder repair next summer. She is due for colonoscopy, which she will have done at [place]. She is on Vivelle and Prometrium but planning on phasing off of hormone replacement therapy. She would like to have prescription for some p.r.n. Compazine for when she travels, has a prescription for antibiotics if needed. CURRENT MEDICATIONS: Include ProctoFoam as needed for hemorrhoids, penicillin currently just for a root canal problem, Vivelle patch, Prometrium, glucosamine/chondroitin, multivitamin, black cohosh, which she is doing about three times a week, bilberry, calcium supplement, and a multivitamin. SOCIAL HISTORY: She is , lives with a 26-year-old son, also provides care for her elderly mother. 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 Does have some exposure to TB. Is due for a PPD. She is a nonsmoker. Has rare alcohol and one to two caffeinated beverages a day. PAST SURGERIES: She has had breast reduction and brow lift for lid lag. FAMILY HISTORY: Significant for hypertension, colon cancer, pancreatic cancer, heart failure, and osteoporosis. 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 She is postmenopausal and phasing off hormone replacement, as above. Complete review of systems is recorded in the chart. She has some age-related hearing loss and mild tinnitus, some occasional cough, some stress incontinence symptoms, some occasional neck pain, and has mild, benign tremor, not severe enough to warrant treatment for it. She would like to have STD testing. OBJECTIVE: VS: BP: 130/72. T: 98.3. P: 64. Ht: 67. Wt: 176. GENERAL: Healthy-appearing female in no acute distress. Sclerae, conjunctivae are benign. TMs, EACs normal. Pharynx benign. NECK: Supple. No adenopathy or thyromegaly. LUNGS: Clear. HEART: Regular rate, S1, S2. No murmurs, thrills, gallops. BREASTS: No masses, discharge, axillary adenopathy. ABDOMEN: Nontender. No HSM, masses, guarding, rebound. PELVIC: Normal female genitalia, perineum, urethra, vagina. Does have cystocele present. Cervix appears normal. Pap smear was done. GC/Chlamydia probe done. Uterus midline, normal size. Adnexa are benign. Rectal confirms, no masses. Has some non-inflamed hemorrhoids. EXTREMITIES: No edema. SKIN: No visible or palpable lesions. Has a mild resting tremor. Normal gait and station. ASSESSMENT: Health maintenance. PLAN: PPD due to work exposure. Compazine p.r.n. HIV, RPR, Chlamydia, gonorrhea, Pap smear. Otherwise, lab screening is up to date. She will continue current medication. Anticipatory guidance given about stopping hormone replacement therapy. FAMILIA:[id number] C: 06/22/05 09:01 DOCUMENT: [id number] documented in this encounter Plan of Treatment Not on filedocumented as of this encounter Visit Diagnoses Not on filedocumented in this encounter Care Teams Stringer Machine Tender Relationship Specialty Start Date End Date Titus Medina MD PCP - General 09/16/1996 03/17/15 documented as of this encounter
--- OUTSIDE RECORDS SUMMARY | 2022-07-30 19:50 | XMS_ITS | Encounter Summary ---
:1945 Author Organization [facility] Address [address] [place] [address] Care Team Providers Name Role Phone Titus Medina MD Primary Care Provider Reason for Visit Reason Comments Other Encounter Details Date Type Department Care Team Description 02/16/2005 Telephone [facility] [address], Message Other [address] [place], [place] [address] Social History Tobacco Use Types Packs/Day Years Used Date Smoking Tobacco: Never Assessed Sex Assigned at Date Recorded Not on file documented as of this encounter Progress Notes Center, Message - 02/16/2005 4:13 PM CDT Phone Note filed by Mob [employer] at 01/19/111818 Author: Mob Science Service: (none) Author Type: (none) Filed: 01/19/111818 Note Time: 02/16/051612 Status: Signed Vending Route Servicer: Mob Science Alfredo BENAVIDES Medical Housekeeper:Phoenix Palmer. Name and Loc: mailorder Pharm Seq. #:[id number] Pharm. Phone #:[phone] Medication:Astelin refill. #1 unit. Prn refills if possible please. Last fill date 11/29/04 Comment: Created on 16Feb2005 4:13pm by BLANCA TOVAR On [id number] 4:47pm DIO OCONNOR wrote: refill denied, pt needs to be seen for a reval GY CROP FARMER documented in this encounter Plan of Treatment Not on filedocumented as of this encounter Visit Diagnoses Not on filedocumented in this encounter Care Teams Rn Lactation Consultant Relationship Specialty Start Date End Date Titus Medina MD PCP - General 09/16/1996 03/17/15 documented as of this encounter
--- OUTSIDE RECORDS SUMMARY | 2022-07-30 19:50 | XMS_ITS | Encounter Summary ---
:1945 Author Organization [facility] Address [address] [place] [address] Care Team Providers Name Role Phone Titus Medina MD Primary Care Provider Encounter Details Date Type Department Care Team Description 04/24/2004 Office Visit [place] [facility] Adi Jones, Therapy PT [address] [facility] [place], [place] [address] [place] [address] [phone] (Wo rk) Social History Tobacco Use Types Packs/Day Years Used Date Smoking Tobacco: Never Assessed Sex Assigned at Date Recorded Not on file documented as of this encounter Plan of Treatment Not on filedocumented as of this encounter Visit Diagnoses Not on filedocumented in this encounter Care Teams News Camera Person Relationship Specialty Start Date End Date Titus Medina MD PCP - General 09/16/1996 03/17/15 documented as of this encounter
--- OUTSIDE RECORDS SUMMARY | 2022-07-30 19:50 | XMS_ITS | Encounter Summary ---
:1945 Author [facility] Address [address], [place] [address] Care Team Providers Name Role Phone Titus Medina MD Primary Care Provider Encounter Details Date Type Department Care Team Description 09/17/2004 Nursing Visit [facility] Ramon Rucker MD [address] [place] [id number] [phone] Social History Tobacco Use Types Packs/Day Years Used Date Smoking Tobacco: Never Assessed Sex Assigned at Date Recorded Not on file documented as of this encounter Progress Notes Margot Pavon MD - 12/04/2004 12:01 AM CST Progress Notes signed by Margot Pavon MD at 12/04/04 3987 Author: Margot Pavon MD Service: (none) Author Type: Physician Filed: 01/23/11 0331 Note Time: 12/04/042014 Status: Signed Mobility Scooter Repairer: Margot Pavon MD (Physician) [facility] [address] [place] [address] December 04, 2004 RE: Ramona Sheikh 1945 Ms. Sheikh has chronic pain and has medical reason to have acupuncture and therapeutic massage. She should be allowed to use funds from her [employer] &/or eligible other funds to pay for these services. Please consider this letter retroactive to 09/06 and applicable throughout 2004. Thank you. Margot Pavon MD Family Medicine AL SUPPLY CHAIN VICE PRESIDENT documented in this encounter Plan of Treatment Not on filedocumented as of this encounter Visit Diagnoses Not on filedocumented in this encounter Care Teams Tearer Press Clipping Relationship Specialty Start Date End Date Titus Medina MD PCP - General 09/16/1996 03/17/15 documented as of this encounter
--- OUTSIDE RECORDS SUMMARY | 2022-07-30 19:50 | XMS_ITS | Encounter Summary ---
:1945 Author Organization [facility] Address [address] [place] [address] Care Team Providers Name Role Phone Titus Medina MD Primary Care Provider Encounter Details Date Type Department Care Team Description 07/22/2004 Office Visit [place] [facility] Adi Jones, Therapy PT [address] [facility] [place], [place] [address] [place] [address] [phone] (Wo rk) Social History Tobacco Use Types Packs/Day Years Used Date Smoking Tobacco: Never Assessed Sex Assigned at Date Recorded Not on file documented as of this encounter Plan of Treatment Not on filedocumented as of this encounter Visit Diagnoses Not on filedocumented in this encounter Care Teams Hand I Thermal Cutter Relationship Specialty Start Date End Date Titus Medina MD PCP - General 09/16/1996 03/17/15 documented as of this encounter
--- OUTSIDE RECORDS SUMMARY | 2022-07-30 19:50 | XMS_ITS | Encounter Summary ---
:1945 Author Organization [facility] Address [address] [place] [address] Care Team Providers Name Role Phone Titus Medina MD Primary Care Provider Encounter Details Date Type Department Care Team Description 07/31/2004 Office Visit [place] [facility] Adi Jones, Therapy PT [address] [facility] [address] [place], [place] [address] [place] [address] [phone] (Wo rk) Social History Tobacco Use Types Packs/Day Years Used Date Smoking Tobacco: Never Assessed Sex Assigned at Date Recorded Not on file documented as of this encounter Plan of Treatment Not on filedocumented as of this encounter Visit Diagnoses Not on filedocumented in this encounter Care Teams Heavy Mobile Equipment Repairer Relationship Specialty Start Date End Date Titus Medina MD PCP - General 09/16/1996 03/17/15 documented as of this encounter
--- OUTSIDE RECORDS SUMMARY | 2022-07-30 19:50 | XMS_ITS | Encounter Summary ---
:1945 Author Organization Replaced by [facility] Address [address] [place] [address] Care Team Providers Name Role Phone Titus Medina MD Primary Care Provider Encounter Details Date Type Department Care Team Description 03/13/2004 PN Conversion Only [place] [facility] [address] [facility] [place], [place] [address] [place] [address] [phone] (Wo rk) Social History Tobacco Use Types Packs/Day Years Used Date Smoking Tobacco: Never Assessed Sex Assigned at Date Recorded Not on file documented as of this encounter Progress Notes Phone Note, Clinician - 12/10/2003 12:01 AM CST Phone Note filed by Clinician Phone Note at 01/20/111328 Author: Clinician Phone Note Service: (none) Author Type: Resource Filed: 01/20/111328 Note Time: 12/10/03 0001 Status: Signed Front Desk Lead: Clinician Phone Note (Resource) SUBJECTIVE: PATIENT COMPLAINS OF... Script * HOME PHONE:[phone] * ALLERGIES/SENSITIVITIES... NKA 11/10/01 03/17/02 CURRENT MEDICATIONS... Vivelle patch (0.05) Prometrium 200 mg qd 03/17/02 PERTINENT PAST HISTORY... Chronic Sinusitis; Varicose veins 11/10/01 03/17/02 ASSESSMENT: Script DISPOSITION: NO DISPOSITION GIVEN PATIENT IS NOT . PATIENT IS NOT NURSING. PLAN: [facility] COMMENTS... Per Dr. Pavon - Peter for vivelle patch .05. Apply twice a week. #8. Refill prn x 1 year. Prometrium 100 mg. 1 tab po every day. # 30. Refill prn x 1 year. Script called into pharm. Patches need prior auth. Call placed to [facility] ( [phone]) for prior auth. It was approved. Scripts called into pharmacy. patient notified. CALL BY ENRIQUETA COVARRUBIAS LPN 12/10/2003 04:26PM [phone] ADDENDUM: Phone Note, Clinician - 12/06/2003 12:01 AM CST Phone Note filed by Clinician Phone Note at 01/20/11 2161 Author: Clinician Phone Note Service: (none) Author Type: Resource Filed: 01/20/11 1328 Note Time: 12/06/03 0001 Status: Signed Front Desk Lead: Clinician Phone Note (Resource) TO: MARGOT PAVON FROM: ENRIQUETA COVARRUBIAS LPN [phone] * PROVIDER MESSAGE: RETURN * 12/06/03 03:13PM * CALL REQUESTED * MESSAGE: Patient would like script * HOME PHONE:[phone] * for the combipatch called into * CONTACT PHONE:[phone] * pharmacy. She would like to start * PHARMACY: [phone] * taking hormones again. * [facility] ( [place]) * SUBJECTIVE: ALLERGIES/SENSITIVITIES... NKA 11/10/01 03/17/02 CURRENT MEDICATIONS... Vivelle patch (0.05) Prometrium 200 mg qd 03/17/02 PERTINENT PAST HISTORY... Chronic Sinusitis; Varicose veins 11/10/01 03/17/02 WEIGHT: PATIENT IS NOT . PATIENT IS NOT NURSING. ASSESSMENT: Script PLAN: DISPOSITION: NO DISPOSITION GIVEN CALL BY ENRIQUETA COVARRUBIAS LPN 12/06/2003 03:11PM [phone] ADDENDUM: <> 12/06/2003 04:34PM by ENRIQUETA COVARRUBIAS LPN: Per Dr. Dylon Baxter .14. Apply weekly. # 8. Refill prn x 1 year. Script called into pharmacy. Message left for patient at [employer] number. Margot Pavon MD - 11/22/2003 12:01 AM CST Progress Notes signed by Margot Pavon MD at 12/27/03 1125 Author: Margot Pavon MD Service: (none) Author Type: Physician Filed: 01/22/11 1856 Note Time: 11/22/03 0001 Status: Signed Front Desk Lead: Margot Pavon MD (Physician) NAME: YIMI GARCIA MR: [id number] ACCT: [id number] VISIT: [id number] DICTATING CLINICIAN: MARGOT PAVON MD JOB: [id number] CLINIC PROGRESS NOTE DATE OF VISIT: 11/22/2003 ASSESSMENT: 1. Shoulder bursitis. 2. Menopausal symptoms. 3. Hemorrhoids. 4. Hyperlipidemia. 5. Plantar fasciitis. PLAN: Shoulder exercises given and referred to physical therapy. She will modify her home exercise program as well. She will observe the hot flashes. Refill Proctofoam for the hemorrhoids. Refer back to podiatry for reevaluation of her plantar fasciitis and check fasting cholesterol fractionation. SUBJECTIVE: : 1945. Chief Complaint: Multiple. Patient here with several concerns. (1) She has been having pain into her left arm and shoulder, radiating at times down her arm toward the wrist. She cannot sleep on her left side. It is painful to reach behind to try to fasten a bra or to lift up overhead. Has been there for about a week. No obvious precipitant, but as we discussed, she notes it happened after she resumed exercise program. (2) She has had some recurrent hot flashes. They had been gone for several months, but now she is waking two or three times at night. She is okay during the day. Not yet feeling sleep deprived. We discussed non-hormonal medication options. She will consider those but for now will simply observe. (3) Wants a refill on Proctofoam for hemorrhoids, which she uses intermittently with good results. (4) She has recurrent symptoms of plantar fasciitis, worsening again. She had seen podiatry in the past with some temporary relief. She would like to see about having permanent orthotics made to help with the pain on first arising at the bottom of the foot. (5) She is due to recheck cholesterol. MEDICATIONS: Listed in the chart. ADR/ALLERGIES: SHE HAS NO KNOWN ALLERGIES. OBJECTIVE: VS: BP: 122/72. P: 72. Wt: 170. GENERAL: Healthy-appearing female, no acute distress. Left shoulder has decreased range of motion. Abduction pain-free to about 90 degrees. Internal rotation is painful. Positive impingement sign. She is slightly tender over the bursa. Normal reflexes, sensory, and motor exam of the arm. No cervical bony tenderness. Foot has tenderness over the calcaneus, consistent with plantar fasciitis. Previous cholesterol results are reviewed. FAMILIA:[id number] C: 12/03/03 21:45 DOCUMENT: [id number] L PRODUCER Phone Note, Clinician - 10/25/2003 12:01 AM CST Phone Note filed by Clinician Phone Note at 01/20/11 3442 Author: Clinician Phone Note Service: (none) Author Type: Resource Filed: 01/20/11 7865 Note Time: 10/25/03 0001 Status: Signed Front Desk Lead: Clinician Phone Note (Resource) TO: MARGOT PAVON FROM: ELIUD AUGUSTE [id number] * PROVIDER MESSAGE: RETURN * 10/25/03 01:07PM * CALL REQUESTED * MESSAGE: Patient called triage * HOME PHONE:[phone] * stating that she would like aPT * CONTACT PHONE:[phone] * referral. She c ontinues to have * Leave message per pt. * trouble with her arm. She has trouble lifting, pulli ng, etc. She has tryed using pain meds, and resting arm etc. She is not getting any relief. She thinks PT would help her learn how to wor k with it. Can you do this for her? SUBJECTIVE: ALLERGIES/SENSITIVITIES... NKA 11/10/01 03/17/02 CURRENT MEDICATIONS... Vivelle patch (0.05) Prometrium 200 mg qd 03/17/02 PERTINENT PAST HISTORY... Chronic Sinusitis; Varicose veins 11/10/01 03/17/02 WEIGHT: PATIENT IS NOT . PATIENT IS NOT NURSING. ASSESSMENT: Arm Pain. PT? PLAN: DISPOSITION: NO DISPOSITION GIVEN CALL BY ELIUD AUGUSTE 10/25/2003 01:05PM [phone] ADDENDUM: <> 10/31/2003 06:34PM by FABIAN ROY RN: BIBIANA Pavon MD : that is fine, she can call pt and schedule. Then let us know which office, we'll send the order directly to them. Also tell her I haven't seen her for this in a long time - should come to see me after the PT to re evaluate. Message called to Yimi garcia on [employer]. machine as instructed. Phone Note, Clinician - 10/02/2003 12:01 AM CST Phone Note filed by Clinician Phone Note at 01/20/11 3260 Author: Clinician Phone Note Service: (none) Author Type: Resource Filed: 01/20/11 4764 Note Time: 10/02/03 0001 Status: Signed Front Desk Lead: Clinician Phone Note (Resource) TO: MARGOT PAVON FROM: ELIUD AUGUSTE [id number] * PROVIDER MESSAGE: RETURN * 10/02/03 04:33PM * CALL REQUESTED * MESSAGE: Pt called triage requesting * HOME PHONE:[phone] * an anti-inflammatory that she has * CONTACT PHONE:[phone] * been on before. She states that it * Yimi at home ok to leave * is from another dr that she cannot * message per pt. * get int o see, and it is in her chart. The rx has . Pharmacy is [facility] [phone]. Can she call in as new, as she can't get into se e him due to limited appt avail. Please call and leave a message. SUBJECTIVE: ALLERGIES/SENSITIVITIES... NKA 11/10/01 03/17/02 CURRENT MEDICATIONS... Vivelle patch (0.05) Prometrium 200 mg qd 03/17/02 PERTINENT PAST HISTORY... Chronic Sinusitis; Varicose veins 11/10/01 03/17/02 WEIGHT: PATIENT IS NOT . PATIENT IS NOT NURSING. ASSESSMENT: Request for medication. PLAN: DISPOSITION: NO DISPOSITION GIVEN CALL BY ELIUD AUGUSTE 10/02/2003 04:31PM [id number] ADDENDUM: <> 10/05/2003 01:41PM by KENNEDY BRITO: Per Dr. Pavon called [facility] [phone] with refill for Clinoril 150mg 1 po bid with food prn #60 refills 3. Edward Mcneal MD - 08/16/2003 12:01 AM CST Progress Notes signed by Edward Mcneal MD at 09/05/03 0701 Author: Edward Mcneal MD Service: (none) Author Type: Physician Filed: 01/22/11 4980 Note Time: 08/16/03 0001 Status: Signed Front Desk Lead: Edward Mcneal MD (Physician) NAME: YIMI GARCIA MR: [id number] ACCT: [id number] VISIT: [id number] DICTATING CLINICIAN: EDWARD MCNEAL MD JOB: [id number] CLINIC PROGRESS NOTE DATE OF VISIT: 08/16/2003 SUBJECTIVE: A 58-year-old, right foot pain, getting worse since Wednesday in the dorsal area, between the toes. Has a past history of trouble with her foot. Has a history of plantar fasciitis of the right foot and uses a night brace. Also has a history of metatarsalgia, sees her family doctor. Is on glucosamine and an inhaler, which she did not know the name of it. Has no trauma to this foot. OBJECTIVE: VS: BP: 130/91. T: 98.7. P: 67. R: 16. This 58-year-old has a fullness on palpation between the second and third metatarsals of the right foot. X-ray unremarkable. ASSESSMENT: Questionable Hurd's neuroma. PLAN: Elevate, ice, ibuprofen 600 mg three times a day or Aleve three times a day, Extra Strength Tylenol. Follow up with primary care next week if she remains symptomatic. May need a referral to podiatry. TT: CT: [id number]:[id number] C: 08/16/03 22:58 DOCUMENT: [id number] L PRODUCER documented in this encounter Plan of Treatment Not on filedocumented as of this encounter Visit Diagnoses Not on filedocumented in this encounter Care Teams Licensed Reactor Operator Relationship Specialty Start Date End Date Titus Medina MD PCP - General 09/16/1996 03/17/15 documented as of this encounter
--- OUTSIDE RECORDS SUMMARY | 2022-07-30 19:50 | XMS_ITS | Encounter Summary ---
:1945 [facility] [address] [place] [address] Care Team Providers Name Role Phone Titus Medina MD Primary Care Provider Encounter Details Date Type Department Care Team Description 07/02/2003 PN Conversion Only [facility] [address] MD Urology OFF SITE [address] [place] [phone] Social History Tobacco Use Types Packs/Day Years Used Date Smoking Tobacco: Never Assessed Sex Assigned at Date Recorded Not on file documented as of this encounter Progress Notes Phone Note, Clinician - 07/13/2003 12:01 AM CDT Phone Note filed by Clinician Phone Note at 01/20/111217 Author: Clinician Phone Note Service: (none) Author Type: Resource Filed: 01/20/111217 Note Time: 07/13/03 0001 Status: Signed Air Tank Assembler: Clinician Phone Note (Resource) TO: MARGOT DAVENPORT FROM: FABIAN ROY [id number] 07/13/03 * PROVIDER MESSAGE: RETURN * 05:17PM * CALL REQUESTED * MESSAGE: CALLED JUL 13, * HOME PHONE:[phone] * ASKING THAT MARGOT DAVENPORT MD WRITE * CONTACT PHONE:[phone] * HER A LETTER OF REFERRAL TO [facility], [address], [facility], [address] attn: Elisepapito Judd. She is having on-going pain in her leg muscles and had helpful results from this therapy in the past. Messages must be left on her home phone as she is unable to receive phone calls at work. Would like a copy of the letter sent to her home as well. SUBJECTIVE: ALLERGIES/SENSITIVITIES... NKA 11/10/01 03/17/02 CURRENT MEDICATIONS... Vivelle patch (0.05) Prometrium 200 mg qd 03/17/02 PERTINENT PAST HISTORY... Chronic Sinusitis; Varicose veins 11/10/01 03/17/02 WEIGHT: ASSESSMENT: needs letter of referral PLAN: DISPOSITION: NO DISPOSITION GIVEN CALL BY FABIAN ROY 07/13/2003 05:06PM [id number] ADDENDUM: Dwayne Saini MD - 07/02/2003 12:01 AM CDT Progress Notes signed by Dwayne Park MD at 08/04/03 1321 Author: Dwayne Park MD Service: (none) Author Type: Physician Filed: 01/22/11 1622 Note Time: 07/02/03 0001 Status: Signed Air Tank Assembler: Dwayne Park MD (Physician) NAME: YIMI GARCIA MR: [id number] ACCT: [id number] VISIT: [id number] DICTATING CLINICIAN: DWAYNE PARK MD JOB: [id number] CLINIC PROGRESS NOTE DATE OF VISIT: 07/02/2003 SUBJECTIVE: Mrs. Garcia comes in for 25 minute conversation regarding the results of her MRI and advice with her stress incontinence. Please see previous notes and evaluation of 06/18/03. The MRI did not demonstrate the previous graft material on either side of the urethras. We saw no evidence of a diverticulum. She has a fibroid off her uterus. 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 PLAN: We have talked about the nature of repeating the TVT tape procedure. The risks of bleeding, infection, failure of the procedure is about 8%, but they have technician terminal and repeater results of 7 and 8 years show that it is usually durable. There are unforeseen events such as erosion that we are very concerned about, but just have not seen. She asked questions regarding her job and when it would do. I suggested she was to take at least ten days off. 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 We have arranged for a previous patient to talk to her about the TVT tape. TT: CT: [id number]:[id number] C: 07/03/03 16:55 DOCUMENT: [id number] Ramon Abbott MD - 05/28/2003 12:01 AM CDT Progress Notes signed by Ramon Ariza MD at 06/28/03 1534 Author: Ramon Ariza MD Service: (none) Author Type: Physician Filed: 01/22/11 1549 Note Time: 05/28/03 0001 Status: Signed Air Tank Assembler: Ramon Ariza MD (Physician) NAME: YIMI GARCIA MR: [id number] ACCT: [id number] VISIT: [id number] DICTATING CLINICIAN: RAMON ARIZA MD JOB: [id number] CLINIC PROGRESS NOTE DATE OF VISIT: 05/28/2003 SUBJECTIVE: Ms. Garcia returns for followup. In the interim, she has seen Dr. Pb Chan in allergy for allergy evaluation and skin tests were negative for foods and southwestern allergens. He does feel that she has vasomotor rhinitis. Entex PSA was prescribed and also suggested going back on Astelin. She is back on the Astelin and states her symptoms are improved. We did discuss the findings. All questions were answered. OBJECTIVE: Nasal mucosa appears healthy today. It is mildly erythematous. There is no rhinorrhea present. ASSESSMENT: Vasomotor rhinitis. PLAN: She should continue with her Astelin. TT: CT: [facility]:[id number] C: 06/05/03 13:18 DOCUMENT: [id number] Dwayne Park MD - 05/02/2003 12:01 AM CDT Progress Notes signed by Dwayne Park MD at 05/29/03 1223 Author: Dwanye Park MD Service: (none) Author Type: Physician Filed: 01/22/11 1525 Note Time: 05/02/03 0001 Status: Signed Air Tank Assembler: Dwayne Park MD (Physician) NAME: YIMI GARCIA MR: [id number] ACCT: [id number] VISIT: [id number] DICTATING CLINICIAN: DWAYNE PARK MD JOB: [id number] CLINIC PROGRESS NOTE DATE OF VISIT: 05/02/2003 SUBJECTIVE: A 57-year-old woman who sees us for stress incontinence, especially when she walks, jogs, coughs, sneezes. She has no urgency incontinence. Past medical history and review of systems per Margot Davenport's note of 04/13/03 is reviewed and unchanged. OBJECTIVE: VS: BP: 110/62. R: 18. P: 70. Abdomen is soft. Good support for the vaginal wall. No rectocele. No cystocele. She has hypermobility and a positive Elia test. 0 cc residual urine. Cysto shows no tumor, stones or erosion from the previous laparoscopic Birch procedure. ASSESSMENT: The patient has classic stress incontinence, failure after laparoscopic Birch. PLAN: I have suggested an MRI of her urethra to understand where this patch graft is, and see if we can redo this procedure with a TVT tape. FINAL IMPRESSION: Stress urinary incontinence. Failed Birch procedure. TT: CT: [id number]:[id number] C: 05/03/03 10:28 DOCUMENT: [id number] Pb Finch MD - 04/17/2003 12:01 AM CDT Progress Notes signed by Pb Finch MD at 05/27/03 1425 Author: Pb Finch MD Service: (none) Author Type: Physician Filed: 01/22/11 1511 Note Time: 04/17/03 0001 Status: Signed Air Tank Assembler: Pb Finch MD (Physician) NAME: YIMI GARCIA MR: [id number] ACCT: [id number] VISIT: [id number] DICTATING CLINICIAN: PB FINCH MD JOB: [id number] CLINIC PROGRESS NOTE DATE OF VISIT: 04/17/2003 SUBJECTIVE: Yimi is a 56-year-old female who was originally skin tested about three or four months ago with negative tests at that time. She is interested in having some additional allergy testing done, since she spends quite a bit of time in the [place] area, and was worried about some of the [facility] allergens, and also wanted to have some testing done including milk. We did provide her with Astelin nasal spray which helped somewhat, and guaiphenesin, which was not all that effective. She still has quite a bit of sinus complaints. OBJECTIVE: VS: BP: 130/70. Ht: 67 in. Wt: 165 lb. Exam reveals a 56-year-old female. HEENT: Reveals normal TMs. Her turbinates are somewhat enlarged and inflamed. Pharynx is clear. CHEST: Clear. Heart sounds are normal. The rest of the exam was negative. Skin tests today for foods and for the [facility] allergens were all completely negative. ASSESSMENT: Vasomotor rhinitis. PLAN: Yimi is not allergic to anything at this point, including the foods, etc. We talked more about vasomotor rhinitis, and we did suggest that she go back on Astelin and also then go on Entex PSE, but just at a half a tablet b.i.d., which should not cause much in the way of changing her high blood pressure problem. We will have her return p.r.n. TT: CT: RAW:[id number] C: 04/18/03 12:25 DOCUMENT: [id number] Margot Davenport MD - 04/13/2003 12:01 AM CDT Progress Notes signed by Margot Davenport MD at 06/24/03 1436 Author: Margot Davenport MD Service: (none) Author Type: Physician Filed: 01/22/11 1508 Note Time: 04/13/03 0001 Status: Signed Air Tank Assembler: Margot Davenport MD (Physician) NAME: YIMI GARCIA MR: [id number] ACCT: [id number] VISIT: [id number] DICTATING CLINICIAN: MARGOT DAVENPORT MD JOB: [id number] CLINIC PROGRESS NOTE DATE OF VISIT: 04/13/2003 SUBJECTIVE: Chief Complaint: Pap smear. Question about colonoscopy. A 57-year-old female here for a follow up. She reports she is doing very well in terms of menopausal symptoms. Has only minimal hot flashes. She is off the Effexor which she was on for treatment of menopausal symptoms. She is only on Astelin nasal spray and occasional aspirin at this point and is feeling overall quite well. She is pleased she has been exercising a half hour to an hour a day for the past week. Is enjoying that with swimming, biking, and lifting weights. Blood pressure is responding well. She is not sure if she is due for any colon screening. On review of her records, she had sigmoidoscopy 10/1999, which is normal. She thinks her mother had colon polyps but at an elderly age. She is not having any other menopausal symptoms. 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 Has her elderly mother visiting her at the moment. She is a nonsmoker. No social risk factors. Her complete review of systems is negative except that she may be flying soon and wonders if there is anything that can help with ear congestion with flying. OBJECTIVE: VS: BP1: 110/70. BP2: 120/72. P: 78. Wt: 165. GENERAL: Healthy-appearing female in no acute distress. Her tympanic membranes and EACs are normal. Pharynx is benign. Neck is supple. Minimal anterior chain adenopathy. She reports recent sore throat that is improving. Lungs are clear. HEART: Regular rate. S1, S2. BREASTS: Moderate fibrocystic changes bilaterally with well-healed scars from breast reduction. No dominant mass. No nipple discharge. No axillary adenopathy. ABDOMEN: Benign. EXTREMITIES: No edema. Pelvic shows normal external female genitalia, perineum, urethra and vagina. Pap smear is done. Bimanual shows well suspended uterus and bladder. Adnexa not palpable. Rectal is negative. ASSESSMENT: 1. Normal FURNITURE PACKER exam. 2. Health maintenance screening up-to-date. 3. Ear pain with flying. PLAN: Auralgan ear drops p.r.n. She has mammogram scheduled. She is not due for colon screening yet. Cholesterol was normal last year. Paps have always been normal. She will follow up p.r.n. TT: CT: FAMILIA:[id number] C: 04/16/03 12:01 DOCUMENT: [id number] Taiwo Painter MBBS - 04/05/2003 12:01 AM CDT Progress Notes signed by Taiwo Painter MD at 04/27/03 0832 Author: Taiwo Painter MD Service: (none) Author Type: Physician Filed: 01/22/11 1501 Note Time: 04/05/03 0001 Status: Signed Air Tank Assembler: Taiwo Painter MD (Physician) NAME: YIMI GARCIA MR: [id number] ACCT: [id number] VISIT: [id number] DICTATING CLINICIAN: TAIWO PAINTER MD JOB: [id number] CLINIC PROGRESS NOTE DATE OF VISIT: 04/05/2003 SUBJECTIVE: Ms. Garcia is a 57-year-old female who presents to urgent care complaining of an itchy rash on her hands and feet for the last three days. On the feet, she has not noticed any rash, but mostly itching. She has noticed redness. Hands reveal a few red spots in the web spaces, as well as on the sides of her fingers. Denies any excessive water contact. Has not been doing any gardening. Denies any exposure to chemicals. PAST MEDICAL HISTORY: Negative. MEDICATIONS: None. ADR/ALLERGIES: NONE. OBJECTIVE: VS: BP: 125/72. T: 98.2. P: 82. R: 16. NAD. HANDS: Reveal a few scaly, red lesions noted in the third web space of the right hand with skin-colored papules noted on the side of the middle finger, distally. FEET: Reveal erythema, but no scales or lesions. ASSESSMENT: 1. Eczema of hands. 2. Tinea pedis. PLAN: 1. Triamcinolone 0.1% cream to be applied b.i.d. to the affected area x 7-10 days. 2. May use Tinactin or some hfky-idr-enirbkr athlete's foot preparation for the feet. I advised her to keep the feet clean and dry. Follow up with PCP p.r.n. Return to clinic p.r.n. TT: CT: [id number]:[id number] C: 04/06/03 07:34 DOCUMENT: [id number] Ramon Ariza MD - 03/12/2003 12:01 AM CDT Progress Notes signed by Ramon Ariza MD at 04/03/03 1259 Author: Ramon Ariza MD Service: (none) Author Type: Physician Filed: 01/22/11 1438 Note Time: 03/12/03 0001 Status: Signed Air Tank Assembler: Ramon Ariza MD (Physician) NAME: YIMI GARCIA MR: [id number] ACCT: [id number] VISIT: [id number] DICTATING CLINICIAN: RAMON ARIZA MD JOB: [id number] CLINIC PROGRESS NOTE DATE OF VISIT: 03/12/2003 SUBJECTIVE: Ms. Garcia returns for followup. She is here for evaluation with regards to her recent allergy testing. All allergy evaluations negative. She was put on Astelin nasal spray. She states, with regards to her nose, she is doing fairly well. OBJECTIVE: Physical exam shows the nasal mucosa to be healthy in appearance today. There is no rhinorrhea present. No purulence present. No polyps are present. The remainder of the exam is unremarkable. ASSESSMENT: Chronic rhinitis, intermittent sinusitis. PLAN: She should continue with the Astelin spray. I did prescribe her a Medrol Dosepak for her upcoming trip to [place] because she does have problems with air travel. We will see her back on a p.r.n. basis. TT: CT: [facility]:[id number] C: 03/30/03 11:25 DOCUMENT: [id number] Margot Davenport MD - 03/07/2003 12:01 AM CDT Progress Notes signed by Margot Davenport MD at 03/27/03 1454 Author: Margot Davenport MD Service: (none) Author Type: Physician Filed: 01/22/11 1434 Note Time: 03/07/03 0001 Status: Signed Air Tank Assembler: Margot Davenport MD (Physician) NAME: YIMI GARCIA MR: [id number] ACCT: [id number] VISIT: [id number] DICTATING CLINICIAN: MARGOT DAVENPORT MD JOB: [id number] CLINIC PROGRESS NOTE DATE OF VISIT: 03/07/2003 SUBJECTIVE: Chief Complaint: Follow up blood pressure check, check leg, foot and ear. Zpkdu[age]xbz-ewxo-old female here with above concerns: 1. She wants to make sure blood pressure is okay. She would like to resume exercise. Her weight had increased. She likes to run, has some urinary incontinence when she does run though. She had a laparoscopic Matias in 1996, initially helped but has since failed. It is interfering with her ability to exercise and she is wondering if there is more that can be done about that. 2. She is having some menopausal symptoms. Two of her three older sisters take some kind of natural herb. Her hot flashes actually have much improved. She is down to about 1 a night and actually not really feeling in the need for anything for treatment as we discussed this. 3. She notes she has a lot of fibrocystic consistency of the breast, wonders if her next mammogram could include an ultrasound to evaluate for any that might be well to aspirate for symptom control. 4. She has been having some sinus congestion and asked for advice on that. MEDICATIONS: She is on no medications. ADR/ALLERGIES: HAS NO ALLERGIES. Nonsmoker. Mother has significant osteoporosis. OBJECTIVE: VS: BP: 132/72. Ht: 5 ft 7 in. Wt: 164. She is healthy-appearing, in no acute distress. Her TMs, EACs are normal. Pharynx is benign. NECK: Supple. No nodes. LUNGS: Clear. ASSESSMENT: 1. Stress incontinence. 2. Menopausal symptoms. 3. History of fibrocystic breast disease. 4. Mild seasonal allergies. PLAN: Discussed management of all of the above. Will have her see urology to see if sling procedure is indicated after the failure of the laparoscopic Matias procedure. I discussed treatment of menopausal symptoms and fibrocystic breast disease. Does not feel the need for any prescriptions for allergies. She will follow up p.r.n. TT: CT: FAMILIA:[id number] C: 03/22/03 12:07 DOCUMENT: [id number] Phone Note, Clinician - 03/01/2003 12:01 AM CDT Phone Note filed by Clinician Phone Note at 01/20/11 112 Author: Clinician Phone Note Service: (none) Author Type: Resource Filed: 01/20/11 112 Note Time: 03/01/03 0001 Status: Signed Air Tank Assembler: Clinician Phone Note (Resource) SUBJECTIVE: PATIENT COMPLAINS OF... Sore throat * HOME PHONE:[phone] * with cough and cold. very sore this morning. Has cold and sinus sx. ALLERGIES/SENSITIVITIES... NKA 11/10/01 03/17/02 CURRENT MEDICATIONS... Vivelle patch (0.05) Prometrium 200 mg qd 03/17/02 PERTINENT PAST HISTORY... Chronic Sinusitis; Varicose veins 11/10/01 03/17/02 ASSESSMENT: Sore Throat-(Adult)-triage guideline DISPOSITION: HOME CARE PATIENT IS NOT . PATIENT IS NOT NURSING. PLAN: RECOMMENDED THE FOLLOWING... Referenced guideline Sore Throat-(Adult)-triage guideline. Presence of cough or cold greatly reduces the likelihood of strep as the cause of the sore throat and increases the likelihood that a virus Patient not comfortable with advice, requests strep screen. Schedule strep screen per patient request. offered nrs appt at 8:45.She said she will go to and be there when it opens. Patient information given per Sore Throat nurse guidelines. Verbalizes understanding and agrees with phone care recommendation CALL BY SHAMIKA MOSER RN 03/01/2003 05:45AM [phone] ADDENDUM: OL INSPECTOR Linsey Trujillo MD - 03/01/2003 12:01 AM CDT Progress Notes signed by Linsey Trujillo MD at 04/20/04 0941 Author: Linsey Trujillo MD Service: (none) Author Type: Physician Filed: 01/22/11 1427 Note Time: 03/01/03 0001 Status: Signed Air Tank Assembler: Linsey Trujillo MD (Physician) NAME: YIMI GARCIA MR: [id number] ACCT: [id number] VISIT: [id number] DICTATING CLINICIAN: LINSEY IRENE MD JOB: [id number] CLINIC PROGRESS NOTE DATE OF VISIT: 03/01/2003 SUBJECTIVE: Patient comes in today. She has been ill now for about a week. She has severe problems with sinus problems. Is followed by Dr. Barron. She recently had a root canal performed. Had been on clindamycin. Three days ago developed a cough. She has had a sore throat for about a week, which seems to be getting worse over the last couple of days. She has had a runny nose for a couple of days. She is also complaining of rash perianally that started yesterday. She has had diarrhea that began over the weekend. Seems to be improving at this time. No vomiting. MEDICATIONS: Currently, on steroids because of the root canal. Also, takes aspirin. ADR/ALLERGIES: NO KNOWN DRUG ALLERGIES. OBJECTIVE: VS: BP: 116/73. T: 98.1. P: 69. R: 16. No apparent distress. HEENT: TMs are clear. Conjunctivae is clear. Oropharynx is clear. NECK: Supple without adenopathy. LUNGS: Clear to auscultation. CARDIAC: Regular rate and rhythm, without murmurs, gallops, or rubs. Rapid strep is negative. ASSESSMENT: Acute viral syndrome. PLAN: Treat symptomatically. Follow up p.r.n. TT: CT: SMS:[id number] C: 03/02/03 00:13 DOCUMENT: [id number] Pb Finch MD - 01/01/2003 12:01 AM CST Progress Notes signed by Pb Finch MD at 01/16/03 1733 Author: Pb Finch MD Service: (none) Author Type: Physician Filed: 01/22/11 1332 Note Time: 01/01/03 0001 Status: Signed Air Tank Assembler: Pb Finch MD (Physician) NAME: YIMI GARCIA MR: [id number] ACCT: [id number] VISIT: [id number] DICTATING CLINICIAN: PB FINCH MD JOB: [id number] CLINIC PROGRESS NOTE DATE OF VISIT: 01/01/2003 SUBJECTIVE: : 1945. Yimi is a 56-year-old female who is seen today at the request of Dr. Ariza from ENT. She has a history of recurrent upper respiratory symptoms of sinus infections, headaches, postnasal drip and rhinorrhea. She has had two surgeries to do turbinate reductions, which provided some brief relief. She is congested a lot at night, to the point where it, at times, interferes with her sleep. She is very, very frustrated, and seems to be quite aggravated around strong smells and odors. She cannot take decongestants as they have caused problems with hypertension. She has been on Nasonex, which has provided only partial relief. 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 The family history is negative, although the father had frequent sinus infections. ENVIRONMENTAL HISTORY: She lives in a 67-year-old house where there is forced air heating, where there is central air conditioning and an air filter. The bedroom is carpeted, she sleeps on a 9-month-old mattress. Basement is partially finished. She has no animals in the home, although they had a dog up until last year, which did not seem to bother her. OBJECTIVE: VS: BP: 130/90. Ht: 67 in. Wt: 158 lb. Reveals a 57-year-old female. HEENT: Reveals some moderate turbinate edema. Mucous membranes were inflamed. There were no secretions. Pharynx was clear. CHEST: Clear. HEART: Sounds were normal. The rest of the exam was negative. Skin tests today were all completely negative and included skin tests for dust, animals, molds and pollen. ASSESSMENT: Vasomotor rhinitis. PLAN: Yimi has a lot of ongoing, chronic rhinitis and congestion problems, but there is no evidence of inhalant allergies. Some of this may be a vasomotor type of problem, and we spent a fair amount of time discussing this diagnosis, its management and reviewed the anatomy and function of the nose. We are going to put her on Astelin two sprays in each nostril b.i.d., guaifenesin in the form of Humibid, and hope that the combination of these therapies will be of some benefit for her. Unfortunately, we cannot put her on decongestants because of her blood pressure problems. Will have her return if she has further problems. TT: CT: CC: DR. ARIZA ENT RAW:[id number] C: 01/03/03 11:35 DOCUMENT: [id number] Danish Arora MD - 12/31/2002 12:01 AM CST Progress Notes signed by Danish Arora MD at 01/02/03 1337 Author: Danish Arora MD Service: (none) Author Type: Physician Filed: 01/22/11 1331 Note Time: 12/31/02 0001 Status: Signed Air Tank Assembler: Danish Arora MD (Physician) NAME: YIMI GARCIA MR: [id number] ACCT: [id number] VISIT: [id number] DICTATING CLINICIAN: Sree ARORA MD JOB: [id number] CLINIC PROGRESS NOTE DATE OF VISIT: 12/31/2002 SUBJECTIVE: : 1945. Chart [id number]. Patient is a 57-year-old female who for the past three days has been having stools that have been fairly frequent. She is not certain if there has been any blood in the stool at all. Has not traveled recently. Was on clindamycin in the past week or so. Has not had a fever. Has had some problems with diarrhea in the past. She ate some snacks brought in at work on 12/29 and a comment by the person that brought them in to the effect that that was all that she could handle to make, made her concerned that perhaps she had picked up something from that. MEDICATIONS: She is on Nasonex. ADR/ALLERGIES: NO ALLERGIES. OBJECTIVE: VS: BP: 143/86. P: 65. R: 16. T: 100.8. No CVA discomfort. ABDOMEN: Shows active bowel sounds, no tenderness to percussion or palpation. No organomegaly. Stool obtained for Giardia, culture and C. diff. ASSESSMENT: Diarrhea. PLAN: Fluids are stressed. She will be using either Imodium or Pepto Bismol for symptoms. If culture should come up positive, will initiate appropriate treatment. TT: CT: [id number] C: 01/01/03 19:11 DOCUMENT: [id number] OL INSPECTOR Ramon Ariza MD - 12/11/2002 12:01 AM CST Progress Notes signed by Ramon Ariza MD at 12/19/02 1212 Author: Ramon Ariza MD Service: (none) Author Type: Physician Filed: 01/22/11 1313 Note Time: 12/11/02 0001 Status: Signed Air Tank Assembler: Ramon Ariza MD (Physician) NAME: YIMI GARCIA MR: [id number] ACCT: [id number] VISIT: [id number] DICTATING CLINICIAN: RAMON ARIZA MD JOB: [id number] CLINIC PROGRESS NOTE DATE OF VISIT: 12/11/2002 SUBJECTIVE: : 1945. Ms. Garcia returns for followup. I last saw her approximately one year ago. She is here for reevaluation of her nose. She has been using Nasonex as well as nasal saline irrigations, and occasionally the nose gets plugged. She does have a history of having two previous somnoplasty radiofrequency reductions of the inferior turbinates. She has had intermittent rhinitis and occasional facial pain and pressure. She feels that now her symptoms may be secondary to allergies. Otherwise review of systems is otherwise negative. OBJECTIVE: She continues to show inferior turbinate hypertrophy, particularly posteriorly. This is less than when we initially started with the radiofrequency reduction. There is a slight septal deviation. The lateral nasal boudreaux are without purulence. They are slightly edematous. Hypopharynx and larynx, oral cavity, oropharynx, and neck are negative. ASSESSMENT: 1. Nasal obstruction secondary to inferior turbinate hypertrophy--improved. I do want her to continue with the Nasonex and nasal saline irrigations. 2. 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 I ordered a paranasal CT scan for evaluation. Also, due to her concerns about allergies, I do feel an allergy evaluation is warranted. PLAN: See assessment. TT: CT: [facility]:[id number] C: 12/19/02 10:28 DOCUMENT: [id number] OL INSPECTOR Margot Davenport MD - 11/22/2002 12:01 AM CST Progress Notes signed by Margot Davenport MD at 12/01/02 1408 Author: Margot Davenport MD Service: (none) Author Type: Physician Filed: 01/22/11 1253 Note Time: 11/22/02 0001 Status: Signed Air Tank Assembler: Margot Davenport MD (Physician) NAME: YIMI GARCIA MR: [id number] ACCT: VISIT: [id number] DICTATING CLINICIAN: MARGOT DAVENPORT MD JOB: [id number] CLINIC PROGRESS NOTE SUBJECTIVE: Chief Complaint: Follow up hot flashes. A 57-year-old female who has been off her hormone replacement therapy and has been using Effexor 25 mg b.i.d. since 10/24 when she had called. She notes that her hot flashes have significantly improved. They have decreased from about five or six at night to two or three at night, and about three to four during the day. They are also less intense along with less frequent. She notes that she had been tried on clonidine previously and that had not helped at all. She still is having some trouble getting back to sleep after the two or three nighttime wakenings with the hot flashes. She is otherwise tolerating the Effexor well. It has caused a little bit of constipation, but she is using Metamucil and high fiber foods and that has helped significantly. She also notes that she has been on Entex PSE for head congestion. Her blood pressure has been running a little high on that. She is going to be stopping soon, though, since her cold seems to be better. OBJECTIVE: VS: BP: 142/88. Ht: 5 ft 6-3/4 in. Wt: 158. Further exam is deferred today. ASSESSMENT: Menopausal symptoms. Recovering URI. PLAN: Spent about 15 minutes in discussion of symptoms. Will have her increase her Effexor to 50 mg at h.s. and continue the 25 mg in the morning. Discussed treatment of constipation. She will be stopping the Entex PSE and I have asked her to check blood pressures after she is off the medication to make sure they return to normal. She had a bone density done 11/08 that showed normal bone density, which is reassuring, because her mother has a history of severe osteoporosis. The patient is notified of this and she will repeat it in five years. TT: CT: [id number] C: 11/28/02 07:20 DOCUMENT: [id number] OL INSPECTOR Caden Emerson MD - 11/08/2002 12:01 AM CST Progress Notes signed by Caden Emerson MD at 11/19/02 1434 Author: Caden Emerson MD Service: (none) Author Type: Physician Filed: 01/22/11 1232 Note Time: 11/08/02 0001 Status: Signed Air Tank Assembler: Caden Emerson MD (Physician) IMPRESSION: Bone density on [facility] [place] W. SUBJECTIVE: REFERRING PROVIDER: MARGOT DAVENPORT MD INTERPRETING PHYSICIAN: CADEN EMERSON MD OSTEOPOROSIS RISK FACTORS FROM PATIENT QUESTIONNAIRE: One year postmenopausal, recently discontinued HRT. OBJECTIVE: SITE BMD T-SCORE* %PEAK Z-SCORE %MATCHED ADULT PEER L1-L4 1.014 -0.3 97% 0.9 110% Tot L Hip 0.853 -0.7 91% 0.0 100% * The T-score = Standard Deviations Above/Below Mean Peak Adult The Z-score = Standard Deviations Above/Below Mean Age/Sex - Matched Peers WHO DEFINITIONS: Normal BMD: T-score > -1.0 Osteopenia: T-score between -1.0 and -2.5 Osteoporosis: T-score < -2.5 ASSESSMENT: 1. Normal BMD hip and lumbar spine. 2. This patient is not at increased fragility fracture risk. PLAN: (RECOMMENDATIONS) 1. Encourage adequate calcium and vitamin D supplementation, and regular weightbearing exercise. 2. No additional osteoporosis prevention therapy warranted at this time. Clinical correlation recommended. 3. In light of recent discontinuation of HRT consider followup BMD in five years. SLG:[id number] C: 11/12/02 11:53 DOCUMENT: [id number] OL INSPECTOR Michelle, [facility] - 10/24/2002 12:01 AM CST Phone Note signed by Margot Davenport MD at 11/19/02 2020 Author: Winnie Conversion Service: (none) Author Type: (none) Filed: 01/22/11 1210 Note Time: 10/24/02 0001 Status: Signed Air Tank Assembler: Winnie Conversion IMPRESSION: hrt TO: MARGOT DAVENPORT FROM: JOSELITO LEE [phone] * PROVIDER MESSAGE: RETURN * 10/24/02 09:22AM * CALL REQUESTED * MESSAGE: pATIENT CALLING REGARDING * HOME PHONE:[phone] * HOT FLASHES SHE WAS STARTED ON * CONTACT PHONE:[phone] * CLONODINE 0.1 MG BID FOR THIS IT IS * tomorrow ok-ok to leave * NOT HELPING . She has made a follow * detailed message * up apt for 2 /5 states there was an * PHARMACY: [phone] * alternative med discussed wondering about start ing that and then coming in to the apt. SUBJECTIVE: ALLERGIES/SENSITIVITIES... NKA 11/10/01 03/17/02 CURRENT MEDICATIONS... Vivelle patch (0.05) Prometrium 200 mg qd 03/17/02 PERTINENT PAST HISTORY... Chronic Sinusitis; Varicose veins 11/10/01 03/17/02 WEIGHT: PATIENT IS NOT . PATIENT IS NOT NURSING. ASSESSMENT: hrt PLAN: DISPOSITION: NO DISPOSITION GIVEN CALL BY JOSELITO LEE 10/24/2002 09:20AM [phone] ADDENDUM: <> 10/25/2002 02:55PM by AURY GARCIA: per : called and lm that i will call in rx will be called in. i called in effexor 25mg 1 po bid #60. Margot Daley MD - 10/16/2002 12:01 AM CST Progress Notes signed by Margot Davenport MD at 11/19/02 1649 Author: Margot Davenport MD Service: (none) Author Type: Physician Filed: 07/02/03 0000 Note Time: 10/16/02 0001 Status: Signed Air Tank Assembler: Margot Davenport MD (Physician) IMPRESSION: PHONE CALL: SUBJECTIVE: Responded to patient's letter. She had two requests; one was that the clonidine be started for hot flashes as we had discussed. I called that in for her to [facility] 0.1 mg p.o. b.i.d. p.r.n. #60. Second was she had requested acupuncture for metatarsal pain at [facility]. That was okayed through our managed care department. Six visits over the next two months. Left a message regarding both of these on her answering machine as she had requested. [id number] C: 10/16/02 19:21 DOCUMENT: [id number] OL INSPECTOR Solomon Alexis MD - 10/14/2002 12:01 AM CST Progress Notes signed by at 11/25/02 0001 Author: Solomon Alexis MD Service: (none) Author Type: Physician Filed: 01/22/11 1157 Note Time: 10/14/02 0001 Status: Signed Air Tank Assembler: Solomon Alexis MD (Physician) IMPRESSION: Sinusitis. SUBJECTIVE: This is a 57-year-old female who comes to [facility] because of a sore throat ongoing for about a week. She has also had a cough and swollen glands. Has had a low-grade fever, headaches. No facial pain. Left ear pain. She denies wheezing, tobacco use, diminished appetite, facial pain. The congestion does, however, keep her awake at night. MEDICATIONS: Claritin, ASA. ADR/ALLERGIES: NONE. OBJECTIVE: VS: BP: 133/76. T: 98.5. P: 70. R: 16. She appears well, in no acute distress. HEENT: TMs: Normal. Oropharynx: Normal. NECK: Supple. CHEST: Clear. ASSESSMENT: Sinusitis. PLAN: Amoxicillin 500 mg three times a day for 10 days. Entex PSE one b.i.d. for congestion. Recheck if not improved. TT: CT: [place]:[id number] C: 10/15/02 21:13 DOCUMENT: [id number] OL INSPECTOR Margot Davenport MD - 10/11/2002 12:01 AM CST Progress Notes signed by at 11/25/022016 Author: Margot Davenport MD Service: (none) Author Type: Physician Filed: 01/22/11 1151 Note Time: 10/11/022016 Status: Signed Air Tank Assembler: Margot Davenport MD (Physician) IMPRESSION: Menopausal symptoms. Family history of osteoporosis, mother has quitesevere osteoporosis. Urinary incontinence symptoms. SUBJECTIVE: Chief Complaint: Hot flashes and urinary incontinence. A 57-year-old female who is currently on no medications, having stopped her hormone replacement therapy in August, is here with concerns about night sweats. She is having insomnia partly due to nasal congestion, although that is better with using some herbal remedies, but she is having night sweats that are keeping her awake. She has tried black cohosh, which has not really helped. She does think it is getting slightly better and would prefer to avoid prescription medication, but she simply had some questions. She brings in a long list of vitamins that she has been taking and wondering which are more likely to be helpful. She has also been having some mild incontinence, more a sense of need to go and some dribbling with stress symptoms that has happened just since stopping her hormone replacement therapy. She is on no medication. ADR/ALLERGIES: NO ALLERGIES LISTED. OBJECTIVE: VS: BP: 142/80. Ht: 5 ft 6-3/4 in. Wt: 159. Exam is deferred today. ASSESSMENT: 1. Menopausal symptoms. 2. Family history of osteoporosis, mother has quite severe osteoporosis. 3. Urinary incontinence symptoms. PLAN: This is a 25 minute office visit, all spent in counseling. Discussed vitamin supplementation and gbfs-[id number]-[id number] remedies for menopause symptoms. Discussed using clonidine. She would prefer to hold off on that at this point, but if she feels she needs it, she can call and would prescribe 0.1 mg at h.s. initially and taper up, if needed. Will do a trial of Premarin vaginal cream weekly for the urinary symptoms and she will follow up if that does not help. She has never had a bone density and we will schedule that given her family history and postmenopausal status. TT: [address]: 25 minutes. 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 SUBJECTIVE: Yimi Garcia, age 56, was seen for a hearing evaluation. Patient's last hearing test was in October of 1999. It is noted that the patient's chart was unavailable at the time of the appointment, and on-line dictation indicates the patient has a low-frequency sensorineural neural hearing loss bilaterally. Patient also reports that she has a known loss in the lower pitches for both ears, but reports the left ear is worse than the right. Patient is unsure if her hearing has changed since the last test in the year 1999. Patient reports no major communication difficulties; however, she does report she sometimes does have difficulties with certain male voices. Patient reports she notices tinnitus at night, but does not notice the tinnitus during the day. Patient denies any symptoms of pain and/or vertigo. OBJECTIVE: HEENT: Otoscopic inspection revealed ear canals to be clear bilaterally. Pure tone testing between 250 and 8000 Hz indicates a moderate sensorineural hearing loss between 250 and 500 Hz rising to within normal limits bilaterally. There is a mild asymmetry between 250 and 500 Hz, with the left ear being worse than the right. A speech medical receptionist assistant threshold was obtained at 15 dBHL bilaterally. Word recognition scores for words presented at 55 dBHL bilaterally, were 96% and 100% in the right and left ear respectively. ASSESSMENT: Moderate low-frequency sensorineural hearing loss bilaterally, with mild asymmetry. PLAN: Today's test results were discussed with the patient and were visually described to her. As previously mentioned, the patient's chart was not available at the time of the appointment; however, the on-line dictation of the previous hearing evaluation leads me to believe that the patient's hearing loss is relatively stable bilaterally. I did explain to the patient that I will order her chart to directly compare the two tests, and if there has been any major progression I will call her with that information. It was my recommendation to the patient that she return in one year for a re-evaluation of hearing, or sooner if any sudden changes are noted. I briefly did discuss with her that she is a candidate for amplification if she feels she is having enough communicational difficulties to warrant that. Patient does not feel that she is ready for that at this time. TT: CT: [id number] C: DOCUMENT: [id number] Airam Mccall MD - 02/17/2001 12:01 AM CDT Progress Notes signed by Airam Reyes MD at 11/24/02 1539 Author: Airam Reyes MD Service: (none) Author Type: Physician Filed: 01/21/11 2248 Note Time: 02/17/01 0001 Status: Signed Air Tank Assembler: Airam Reyes MD (Physician) IMPRESSION: Breast atrophy and post reduction scars, brow ptosis. SUBJECTIVE: Ms. Garcia is 55 and has a number of concerns today, though the appointment was booked for evaluation of scars. She had a breast reduction in January 1998 and is concerned about the scars and the fact that she thinks that the left breast looks larger and is sagging a lot. She also wonders about a possible brow lift, dislikes the crepeness in the skin in her cheeks and does not like the loose skin above her elbows. She states that she has lost 50 pounds since April 2000 and finds that the extra skin is just not tightening up. She takes Actifed, ibuprofen, estrogen patch and progesterone. HAS NO KNOWN ALLERGIES. Has had a laparoscopic Matias procedure about 4 or 5 years ago and a C- section in 1978. She did have Botox injections in December 2000. OBJECTIVE: We touched briefly on all of the areas of concern to her. With regard to the loose skin on the elbows, in my assessment she does not have any extra skin in this area but has the normal changes associated with her age and I would not recommend any surgical procedures. The tendency for fine lines on the skin, again, is the skin quality issue and I do not think there is the kind of improvement that she is looking for a facelift-type procedure, though it may require facelift in conjunction with some type of skin care. I have recommended that she start with a skin care program to treat fine lines. With regard to the browlift, it is really very difficult to evaluate that since she has already had Botox 2 months ago. We discussed procedure for browlift. We then addressed the main concern that she had which was the breast reduction surgery. She has had a nice result from her breast reduction, though there may have been some volume loss with the 50-pound weight loss. The scars are somewhat coarse. The breast does show some involution. If she wanted to have things tightened, then a mastopexy could be done which would revise or redo all of the scars. I do not think there would be insurance benefits available for that. We discussed risks, complications and expectations of a mastopexy. She understands that it will not add any volume to the breasts. I would doubt that there would be any change in nipple sensation. She reports that the nipple sensation has been a bit different since the reduction, which is not uncommon. She understands that scars will result and that activity precautions will be helpful in reducing scar irregularity but cannot eliminate the possibility of unpleasant scars. With regard to the browlift, we discussed location of the incisions, possible need for additional or revisional surgeries, face symmetry, limitations, long-term expectations, possible motor or sensory nerve injuries. ASSESSMENT: Breast atrophy and post reduction scars, brow ptosis. PLAN: She will talk to Mery about fees. CC: MARGOT DAVENPORT MD MC:[id number] C: DOCUMENT: [id number] OL INSPECTOR documented in this encounter Plan of Treatment Not on filedocumented as of this encounter Procedures Procedure Name Priority Date/Time Associated Comments Diagnosis CT SINUS WO IV CONT Routine 01/03/2003 4:52 PM Re sults for this PATROL INSPECTOR procedure are i n the results section. SEXUALLY TRANSMITTED Routine 05/19/2002 6:16 PM R esults for this DISEASE PROBE CDT procedure are in the results section. [facility] Routine 05/19/2002 6:16 PM Results for this [facility] CDT procedure ar e in the results section. documented in this encounter Results CT Sinus WO IV Cont (01/03/2003 4:52 PM PATROL INSPECTOR) Anatomical Region Laterality Modality Head Other Specimen (Source) Anatomical Location Collection Method / Collectio n Time Received Time / Laterality Volume Impressions 01/03/2003 4:52 PM PATROL INSPECTOR : ??Negative sinus CT. [id number]/[id number] Dictating BIBIANA VILLASEÑOR RADIOLOGIST Narrative 01/03/2003 4:52 PM PATROL INSPECTOR FINDINGS: ??Contiguous direct coronal CT scans of the sinuses are supplemented by a single axial scan thro ugh the ethmoid and sphenoid sinuses, showing that the paranasal sinu ses are entirely clear and the ostiomeatal complexes intact bilater ally. ??The nasal septum is in the midline. ??There is no nasal polyp o r nasal congestion. Procedure Note Bibiana Fernández - 12/06/2016Formatting of t his note might be different from the original. FINDINGS: Contiguous direct coronal CT s cans of the sinuses are supplemented by a single axial scan thro ugh the ethmoid and sphenoid sinuses, showing that the paranasal sinu ses are entirely clear and the ostiomeatal complexes intact bilater ally. The nasal septum is in the midline. There is no nasal polyp or nasal congestion. IMPRESSION : Negative sinus CT. [id number]/[id number] Dictating BIBIANA VILLASEÑOR RADIOLOGIST Ramon Ariza MD RAD CT (ABNORMAL) [facility] (05/19/2002 6:16 PM CDT) Patholo gist Method Time Signature Wet Prep ? No normal HP CONVERSION range Wet Prep Trich Negative No normal HP CONVERSION [facility] Wet Prep WBC Moderate No normal HP CONVERSION [facility] Wet Prep Many (A) No normal HP CONVERSION Bacteria [facility] Wet Prep Clue Negative No normal HP CONVERSION Cells [facility] Wet Prep Yeast Negative No normal HP CONVERSION [facility] Wet Prep Amine Negative No normal HP CONVERSION Odor [facility] Specimen (Source) Anatomical Collection Method Collection Time Re ceived Time Location / / Volume Laterality 05/19/2002 6:16 PM CDT Margot Davenport MD LAB_1 Performing Organization Address City/State/ZIP Code Phon e Number HP CONVERSION Sexually Transmitted Disease Probe (05/19/2002 6:16 PM CDT) Patholo gist Method Time Signature Sexually SEE TEXT HP CONVERSION Transmitted Disease Probe Comment: Patient: IYMI GARCIA Sexually Trans Disease Probe @ ?Collected: ??[id number] ??[id number] Source: ENDOCERV ?Processed: ??[id number] ??[id number] Final Report ------ ?[id number] ??[id number] No Neisseria gonorrhoeae by DNA probe. No Chlamydia trachomatis by amplified DN A probe. @ = Sexually Trans Disease Probe Perform ed at ??[address] [facility] ?[place] [address] Specimen (Source) Anatomical Collection Method Collection Time Re ceived Time Location / / Volume Laterality 05/19/2002 6:16 PM CDT Margot Davenport MD LAB_1 Performing Organization Address City/State/ZIP Code Phon e Number HP CONVERSION documented in this encounter Visit Diagnoses Not on filedocumented in this encounter Care Teams Recreational Therapy Technician Relationship Specialty Start Date End Date Titus Medina MD PCP - General 09/16/1996 03/17/15 documented as of this encounter
--- OUTSIDE RECORDS SUMMARY | 2022-07-30 19:50 | XMS_ITS | Encounter Summary ---
:1945 [facility] Address [address] [place] [id number] Care Team Providers Name Role Phone Titus Medina MD Primary Care Provider Encounter Details Date Type Department Care Team Description 04/16/2005 PN Conversion Only [facility] [address] [place], [place] [address] Social History Tobacco Use Types Packs/Day Years Used Date Smoking Tobacco: Never Assessed Sex Assigned at Date Recorded Not on file documented as of this encounter Plan of Treatment Not on filedocumented as of this encounter Procedures Procedure Name Priority Date/Time Associated Diagnosis Comme nts MM MAMMOGRAM Routine 04/16/2005 10:15 AM Results for this SCREENING W CAD CDT procedure ar e in the results section. documented in this encounter Results MM Mammogram Screening W CAD (04/16/2005 10:15 AM CDT) Anatomical Region Laterality Modality Breast Bilateral Mammography Specimen (Source) Anatomical Location Collection Method / Collectio n Time Received Time / Laterality Volume Impressions 04/20/2005 2:56 PM CDT : ??Questionable spiculated mass right CC projection. ??Coned compression will be scheduled by radiolo gy. ??ACR BIRADS CATEGORY 0: Need additional imaging evaluation. Tss/[id number] Dictating DIO EDWARDS RADIOLOGIST Narrative 04/20/2005 2:56 PM CDT Comparison is with the September 03 study. ??The study is scanned by a CAD unit for a second reading. ??In th e retroareolar area of the right breast on the CC projection only t here is an asymmetric area of density with a suggestion of speculation . ??Corresponding area is not definitely seen on the MLO projection an d therefore this may represent summation. ??However, coned co mpression will be scheduled. Otherwise breasts are of moderate densit y without masses and without suspicious calcification and are otherwi se unchanged. Procedure Note Dio Padron - 12/05/2016Formattin g of this note might be different from the original. Comparison is with the September 03 [facility]. The study is scanned by a CAD unit for a second reading. In the retroareolar area of the right breast on the CC projection only t here is an asymmetric area of density with a suggestion of speculation . Corresponding area is not definitely seen on the MLO projection an d therefore this may represent summation. However, coned comp ression will be scheduled. Otherwise breasts are of moderate densit y without masses and without suspicious calcification and are otherwi se unchanged. IMPRESSION : Questionable spiculated mass right CC projection. Coned compression will be scheduled by radiolo gy. ACR BIRADS CATEGORY 0: Need additional imaging evaluation. [id number] Dictating DIO EDWARDS RADIOLOGIST Margot Pavon MD RAD VESNA documented in this encounter Visit Diagnoses Not on filedocumented in this encounter Care Teams Planisher Relationship Specialty Start Date End Date Titus Medina MD PCP - General 09/16/1996 03/17/15 documented as of this encounter
--- OUTSIDE RECORDS SUMMARY | 2022-07-30 19:50 | XMS_ITS | Encounter Summary ---
:1945 Author Organization [facility] Address [address] [place] [address] Care Team Providers Name Role Phone Titus Medina MD Primary Care Provider Encounter Details Date Type Department Care Team Description 12/31/2002 PN Conversion Only OIL AND GAS DRAFTER [address] [place] [address] [address] [place] [address] (Wo rk) Social History Tobacco Use Types Packs/Day Years Used Date Smoking Tobacco: Never Assessed Sex Assigned at Date Recorded Not on file documented as of this encounter Plan of Treatment Not on filedocumented as of this encounter Procedures Procedure Name Priority Date/Time Associated Comments Diagnosis GIARDIA ANTIGEN Routine 12/31/2002 9:50 AM Result s for this SCREEN DIFFUSER OPERATOR procedure are i n the results section. CLOSTRIDIUM DIFFICILE Routine 12/31/2002 9:50 AM Results for this TOXIN DIFFUSER OPERATOR procedure are i n the results section. STOOL CULTURE Routine 12/31/2002 9:50 AM Results for this DIFFUSER OPERATOR procedure are i n the results section. documented in this encounter Results Clostridium Difficile Toxin (12/31/2002 9:50 AM DIFFUSER OPERATOR) [facility] Method Time Signature Clostridium SEE TEXT HP CONVERSION difficile Toxin Comment: Patient: YIMI GARCIA E Source: Stool ? [id number] ?Processed: ??[id number] Final Report ------ ?[id number] ?[id number] Clostridium difficile toxin not detected @ = C DIFF TOXIN Performed at ??[address] [place], [place] ?[address] Specimen (Source) Anatomical Collection Method Collection Time Re ceived Time Location / / Volume Laterality 12/31/2002 9:50 AM DIFFUSER OPERATOR Danish Woods MD LAB_1 Performing Organization Address City/State/ZIP Code Phon e Number HP CONVERSION Giardia Antigen Screen (12/31/2002 9:50 AM DIFFUSER OPERATOR) P athologist Signature Giardia Ab SEE TEXT HP CONVERSION Comment: Patient: YIMI GARCIA Giardia Screen @ ?Collected: ??[id number] ??[id number] Source: Stool ? Processed: ??[id number] ??[id number] Final Report ------ ?[id number] ??[id number] Negative for Giardia antigen @ = Giardia Screen Performed at ??[address] [facility] Specimen (Source) Anatomical Collection Method Collection Time Re ceived Time Location / / Volume Laterality 12/31/2002 9:50 AM DIFFUSER OPERATOR Danish Woods MD LAB_1 Performing Organization Address City/State/ZIP Code Phon e Number HP CONVERSION Stool Culture (12/31/2002 9:50 AM DIFFUSER OPERATOR) [facility] Time Signature Stool Culture SEE TEXT HP CONVERSION Comment: Patient: YIMI GARCIA Culture, Stool @ ?Collected: ??[id number] ??[id number] Source: Stool ? Processed: ??[id number] ??1110 Final Report ------ ?[id number] ??1025 No Salmonella, Shigella, Campylobacter o r E coli 0157 isolated NOTE: Aeromonas, Plesiomonas and Vibrio may be missed. If patient has a history of fore ign travel, eating raw shellfish or other contact wi th contaminated water, another culture should be submitt ed with these organisms specifically requested. @ = STOOL CULTURE Performed at ??[address] [place] ?[address] Specimen (Source) Anatomical Collection Method Collection Time Re ceived Time Location / / Volume Laterality 12/31/2002 9:50 AM DIFFUSER OPERATOR Danish Woods MD LAB_1 Performing Organization Address City/State/ZIP Code Phon e Number HP CONVERSION documented in this encounter Visit Diagnoses Not on filedocumented in this encounter Care Teams Debt And Budget Counselor Relationship Specialty Start Date End Date Titus Medina MD PCP - General 09/16/1996 03/17/15 documented as of this encounter
--- OUTSIDE RECORDS SUMMARY | 2022-07-30 19:50 | XMS_ITS | Encounter Summary ---
:1945 Author Organization [facility] Address [address] [place] [address] Care Team Providers Name Role Phone Titus Medina MD Primary Care Provider Encounter Details Date Type Department Care Team Description 03/01/2003 PN Conversion Only WIPING RAG WASHER [address] Elizabeth Trujillo MD [address] [place] [address] [place] [address] (Wo rk) Social History Tobacco Use Types Packs/Day Years Used Date Smoking Tobacco: Never Assessed Sex Assigned at Date Recorded Not on file documented as of this encounter Plan of Treatment Not on filedocumented as of this encounter Procedures Procedure Name Priority Date/Time Associated Diagnosis Comme nts STREP GROUP A Routine 03/01/2003 12:19 PM Results for this ANTIGEN TEST CDT procedure are i n the results section. BETA STREP FOLLOWUP Routine 03/01/2003 12:19 PM R esults for this CDT procedure are i n the results section. documented in this encounter Results Strep Group A Antigen Test (03/01/2003 12:19 PM CDT) Analysis Performed At Patho logist Time Signature Strep Group A Negative Negative HP CONVERSION Antigen Test Comment: Culture to follow. Specimen (Source) Anatomical Collection Method Collection Time Re ceived Time Location / / Volume Laterality 03/01/2003 12:19 PM CDT Elizabeth Trujillo MD LAB_1 Performing Organization Address City/State/ZIP Code Phon e Number HP CONVERSION Beta Strep Followup (03/01/2003 12:19 PM CDT) P athologist Signature Strep Screen SEE TEXT HP CONVERSION Comment: Patient: YIMI GARCIA Rapid Strep Follow up Culture @ ? Collected: ??[id number] ??[id number] Source: Throat ?Processed: ??[id number] ??[id number] Final Report ------ ?[id number] ??0818 No beta hemolytic Strep group A isolated . @ = Rapid F/U Cult Performed at ??[address] [place] ?[address] Specimen (Source) Anatomical Collection Method Collection Time Re ceived Time Location / / Volume Laterality 03/01/2003 12:19 PM CDT Elizabeth Trujillo MD LAB_1 Performing Organization Address City/[facility] Code Phon e Number HP CONVERSION documented in this encounter Visit Diagnoses Not on filedocumented in this encounter Care Teams Uranium Processing Supervisor Relationship Specialty Start Date End Date Titus Medina MD PCP - General 09/16/1996 03/17/15 documented as of this encounter
--- OUTSIDE RECORDS SUMMARY | 2022-07-30 19:50 | XMS_ITS | Encounter Summary ---
:1945 Author Organization [facility] Address [address] [place] [address] Care Team Providers Name Role Phone Titus Medina MD Primary Care Provider Reason for Visit Reason Comments Other Encounter Details Date Type Department Care Team Description 11/20/2004 Telephone [facility], Message Other [address] [place], [place] [address] Social History Tobacco Use Types Packs/Day Years Used Date Smoking Tobacco: Never Assessed Sex Assigned at Date Recorded Not on file documented as of this encounter [facility], Message - 11/20/2004 3:06 PM CST Phone Note filed by Nukona at 01/19/11 7636 Author: [place] Service: (none) Author Type: (none) Filed: 01/19/111 Note Time: 11/20/04 1506 Status: Signed Cycle Manager: Nukona Pt calling stating that she needs to have a letter retro active to Oct 19 and to the next 12 months. For her Acutpuncture/Therapuetic Message. She needs to have this for her Supp health insurance. Also gave you the voicemail for this. Questions please call [phone]. Pt knows that doctor is not in until 11/26. Created on [id number] 3:06pm by KENNEDY BRITO M On 04Dec2004 9:29am KENNEDY BRITO wrote: Pt calling again to see about the letter. On 05Dec2004 7:30am JATINDER DAVENPORT wrote: letter written Acknowledged by JATINDER DAVENPORT on 7:30am documented in this encounter Plan of Treatment Not on filedocumented as of this encounter Visit Diagnoses Not on filedocumented in this encounter Care Teams Cardiac Surgeon Relationship Specialty Start Date End Date Tiuts Medina MD PCP - General 09/16/1996 03/17/15 documented as of this encounter
--- OUTSIDE RECORDS SUMMARY | 2022-07-30 19:50 | XMS_ITS | Encounter Summary ---
:1945 Author Organization [facility] Address [address] [place] [address] Care Team Providers Name Role Phone Titus Medina MD Primary Care Provider Encounter Details Date Type Department Care Team Description 05/28/2005 PN Conversion Only CREEKSIDE CONVERSION Margot Pavon MD [address] [place], [place] [address] [address] [place], [place] [address] (Wo rk) Social History Tobacco Use Types Packs/Day Years Used Date Smoking Tobacco: Never Assessed Sex Assigned at Date Recorded Not on file documented as of this encounter Plan of Treatment Not on filedocumented as of this encounter Procedures Procedure Name Priority Date/Time Associated Comments Diagnosis HIV ANTIBODY Routine 05/28/2005 4:15 PM Results f or this CDT procedure are i n the results section. RPR BLOOD Routine 05/28/2005 4:15 PM Results f or this CDT procedure are i n the results section. SEXUALLY TRANSMITTED Routine 05/28/2005 4:15 PM R esults for this DISEASE PROBE CDT procedure are in the results section. ANATOMICAL PATH Routine 05/28/2005 9:19 AM Result s for this LIQUID BASED CDT procedure are i n the results section. documented in this encounter Results RPR Blood (05/28/2005 4:15 PM CDT) athologist Signature RPR Non Reac Non Reac HP CONVERSION Specimen (Source) Anatomical Collection Method Collection Time Re ceived Time Location / / Volume Laterality 05/28/2005 4:15 PM CDT Margot Pavon MD LAB_1 Performing Organization Address City/State/ZIP Code Phon e Number HP CONVERSION HIV Antibody (05/28/2005 4:15 PM CDT) P athologist Signature HIV 1/HIV 2 Non Reac Non Reac HP CONVERSION Specimen (Source) Anatomical Collection Method Collection Time Re ceived Time Location / / Volume Laterality 05/28/2005 4:15 PM CDT Margot Pavon MD LAB_1 Performing Organization Address City/State/ZIP Code Phon e Number HP CONVERSION Sexually Transmitted Disease Probe (05/28/2005 4:15 PM CDT) Patholo gist Method Time Signature Sexually SEE TEXT HP CONVERSION Transmitted Disease Probe Comment: Patient: RADHA, YIMI Carmen Sexually Trans Disease Probe @ ?Collected: ??[id number] ??[id number] Source: ENDOCERV ?Processed: ??[id number] ??[id number] Final Report ------ ?[id number] ??[id number] No Chlamydia trachomatis detected by amp lified DNA assay No Neisseria gonorrhoeae detected by amp lified DNA assay [facility] Amplified DNA assay is romeo red by the FDA for non-medicolegal diagnostic testing in the adult population. It has not been cleared for use in the pediatric population. @ = Sexually Trans Disease Probe Perform ed at ??[address] [facility] ?[place] [address] Specimen (Source) Anatomical Collection Method Collection Time Re ceived Time Location / / Volume Laterality 05/28/2005 4:15 PM CDT Margot Pavon MD LAB_1 Performing Organization Address [facility] Phon e Number HP CONVERSION Pap Smear (05/28/2005 9:19 AM CDT) [facility] gist Method Time Signature PAP Smear SEE TEXT No normal HP CONVERSION Liquid Based range Comment: Patient: YIMI GARCIA ? CERVICAL CYTOLOGY REPORT Pathology # ??[id number] ?Date Obtained: ? Date Received: CYTOLOGIC IMPRESSION: Negative for intraepithelial lesion or m alignancy. ? BRODERICK TIONAL DATA LMP: ?PARKING ENFORCEMENT OFFICER CLINICAL HIST LIQUID BASED PAP CERVICAL SPECIMEN ADEQUACY: ?? Satisfactory. ENDOCERVICAL CELLS: ??Absent; patient is post-menopausal. Verified 06/10/05 by: ? (electronic signature) Specimen (Source) Anatomical Collection Method Collection Time Re ceived Time Location / / Volume Laterality 05/28/2005 9:19 AM CDT Margot Pavon MD LAB_1 Performing Organization Address City/State/ZIP Code Phon e Number HP CONVERSION documented in this encounter Visit Diagnoses Not on filedocumented in this encounter Care Teams Sponge Packer Relationship Specialty Start Date End Date Titus Medina MD PCP - General 09/16/1996 03/17/15 documented as of this encounter
--- OUTSIDE RECORDS SUMMARY | 2022-07-30 19:51 | XMS_ITS | Encounter Summary ---
:1945 Author [facility] Address [address] [place] [id number] Care Team Providers Name Role Phone Titus Medina MD Primary Care Provider Encounter Details Date Type Department Care Team Description 07/20/2002 PN Conversion Only [facility] [address] ie, Plastic Surgery [address] Lowery [address] [facility] [address] [id number] Social History Tobacco Use Types Packs/Day Years Used Date Smoking Tobacco: Never Assessed Sex Assigned at Date Recorded Not on file documented as of this encounter Progress Notes Airam Reyes MD - 07/20/2002 12:01 AM CDT Progress Notes signed by at 10/21/02 1963 Author: Airam Reyes MD Service: (none) Author Type: Physician Filed: 01/22/11 0959 Note Time: 07/20/022157 Status: Signed Senior Hardware Design Engineer: Airam Reyes MD (Physician) IMPRESSION: Postop check. SUBJECTIVE: Mrs. Sheikh had cancelled her appointment but decided to keep it. She is happy with the results of her brow lift; however, she wanted to see me regarding revision of her breast reduction scars from five years ago. We had talked at that time about redoing the scars, but today her emphasis is on not just revising the scars but getting a little bit more lift to the breasts. This really would be a mastopexy again and requires a little bit more than simple revision of the scars. I do not recall when it was that we talked about revising these scars, but I do not have the chart today to check. She received a letter from [facility] telling her that the previously denied scar revision would now be eligible for coverage. We certainly could just revise the scars, but I think what she is really looking for is an improvement in the contour and position which would really be a mastopexy at this point. She can certainly talk with Mery about what the fees would involve. OBJECTIVE: N/A ASSESSMENT: Postop check. PLAN: N/A TT: CT: [id number] C: DOCUMENT: [id number] Rito Mcfarland DPM - 06/14/2002 12:01 AM CDT Progress Notes signed by Rito Sarabia DPM at 06/22/02 1142 Author: Rito Sarabia DPM Service: (none) Author Type: Physician Filed: 01/22/11 0906 Note Time: 06/14/02 0001 Status: Signed Senior Hardware Design Engineer: Rito Sarabia DPM (Physician) IMPRESSION: Plantar fasciitis, right. SUBJECTIVE: Patient returns to clinic. This time with complaint of pain in her right heel. States that the cortisone injection she obtained previously was of significant benefit for her. However, over the last four weeks the pain has become exquisitely tender. ADR/ALLERGIES: NO KNOWN DRUG ALLERGIES. OBJECTIVE: Pedal pulses are palpable bilaterally. Distal neurologic sensation is grossly intact bilaterally. Range of motion of ankle, rearfoot, midfoot, and forefoot appear to be within normal limits without pain or crepitation. There is no erythema, edema, ulceration or open wounds noted. No pain with medial lateral compression of the calcaneus nor with deep palpation, percussion of the TP nerve bilaterally. There was, however, exquisite tenderness with deep palpation of the plantar medial calcaneal tubercle on the right foot. ASSESSMENT: Plantar fasciitis, right. PLAN: Discussed treatment options and alternatives with the patient. We discussed about using the night splint versus another cortisone injection into the area. She had the cortisone injection performed today. After alcohol and Betadine prep, an injection of 1 cc of Kenalog, 1 cc of 0.5% Marcaine plain was infiltrated at the point of maximal tenderness on the right heel. After care was discussed. See the patient back in one month for followup. She will continue use of the night splint. TT: CT: CHS:[id number] C: DOCUMENT: [id number] Margot Motley MD - 05/19/2002 12:01 AM CDT Progress Notes signed by at 11/25/02 0001 Author: Margot Motley MD Service: (none) Author Type: Physician Filed: 01/22/11 0832 Note Time: 05/19/02 0001 Status: Signed Senior Hardware Design Engineer: Margot Motley MD (Physician) IMPRESSION: Vaginitis. Intermittent cold sores. Hormone replacement therapy. SUBJECTIVE: Chief Complaint: Discuss hormones. Possible yeast infection. Fedtb-cuth-wkof-old female here with concerns about hormone replacement therapy in light of recent studies. She has been on hormone replacement therapy for about nine years. Originally it was for menorrhagia. She is on Vivelle patch plus Prometrium. She is not having any hot flashes. She has had some periods within the past year. Has had workup for bleeding, which was negative. Secondly, she notes she has had some rawness and irritation recently in the vagina. She is not sure if there could be any yeast infection. She has never had a bone density. Her mother has quite severe osteoporosis and is on Fosamax. Last, patient would like a refill on Valtrex, which she has used p.r.n. on cold sores which cuts down significantly in her experience on length of outbreak. OBJECTIVE: VS: BP: 138/86. Ht: 5 ft 6-3/4 in. Wt: 146-1/4. Healthy-appearing female. Genital exam shows normal external female genitalia. Vaginal mucosa is slightly atrophic, minimal discharge. T and Y and Gen-Probe done. Nontender uterus. No cervical motion tenderness. ASSESSMENT: 1. Vaginitis. 2. Intermittent cold sores. 3. Hormone replacement therapy. PLAN: Discussed hormone replacement therapy and study results at some length. Opted to stop hormones for now. Check bone density and if necessary, use bisphosphonates for any osteoporosis. TT: [address]: 15 minutes. FAMILIA:[id number] C: DOCUMENT: [id number] Airam Mccall MD - 05/11/2002 12:01 AM CDT Progress Notes signed by at 10/21/02 1842 Author: Airam Reyes MD Service: (none) Author Type: Physician Filed: 01/22/11 0821 Note Time: 05/11/022157 Status: Signed Senior Hardware Design Engineer: Airam Reyes MD (Physician) IMPRESSION: Postop check with scar revision. SUBJECTIVE: Ramona is here for a revision of her brow lift. OBJECTIVE: Both scars were anesthetized and incisions were opened with the Crawford cautery. Dissection was taken down to the anterior hair line and 3-0 PDS sutures were placed in the periosteum and secured to the temporalis fascia posteriorly to help pull up the lateral brow. The scalp was trimmed and closed with 3-0 PDS and 4-0 Prolene. Sutures will be in for ten to twelve days. ASSESSMENT: Postop check with scar revision. PLAN: See above. TT: CT: [id number] C: DOCUMENT: [id number] Danish Haywood MD - 04/24/2002 12:01 AM CDT Progress Notes signed by at 11/25/02 0001 Author: Danish Aguilera MD Service: (none) Author Type: (none) Filed: 01/22/11 0756 Note Time: 04/24/022157 Status: Signed Senior Hardware Design Engineer: Danish Aguilera MD (Physician) IMPRESSION: Patient with consistent history with vaginitis consistent with yeast infection. SUBJECTIVE: This is a 56-year-old with a chief complaint of vaginal itching with vaginal discharge. The patient recently has had two courses of antibiotics for an upper respiratory infection. She is now complaining of a white vaginal discharge, nonfoul odor with some vaginal itching. She has had yeast infections in the past. She would like treatment. She has had a recent Pap smear in October 2001. She has never had an abnormal Pap smear nor has she had anything other than yeast infections. No history of trichomonas or bacterial vaginosis. OBJECTIVE: N/A ASSESSMENT: Patient with consistent history with vaginitis consistent with yeast infection. PLAN: At this time my exam is deferred and the patient is put on Diflucan 150 mg to take times one. She has used this in the past with good results. Should her symptoms persist, she is to return here for a recheck and exam. TT: CT: NENITA:[id number] C: DOCUMENT: [id number] ICATOR Airam Reyes MD - 04/18/2002 12:01 AM CDT Progress Notes signed by at 10/21/02 1839 Author: Airam Reyes MD Service: (none) Author Type: Physician Filed: 01/22/11 0748 Note Time: 04/18/022157 Status: Signed Senior Hardware Design Engineer: Airam Reyes MD (Physician) IMPRESSION: Postop check. SUBJECTIVE: A year post endo brow and three months post revision of the brow lift. The left scar is still a little wider than I would like. She also wonders if the lateral brows could not be brought up just a little bit more. I am certainly willing to try that for her. OBJECTIVE: N/A ASSESSMENT: Postop check. 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 TT: CT: MILA:[id number] C: DOCUMENT: [id number] ICATOR Solomon Verdin MD - 04/01/2002 12:01 AM CDT Progress Notes signed by Solomon Verdin MD at 04/03/02 0758 Author: Solomon Verdin MD Service: (none) Author Type: Physician Filed: 01/22/11 0727 Note Time: 04/01/02 0001 Status: Signed Senior Hardware Design Engineer: Solomon Verdin MD (Physician) IMPRESSION: Rash consistent with insect bites. SUBJECTIVE: The patient enters today for two red spots noted on her left hip, that was last evening. They itch at this point. They are not specifically spreading. She notes no other specific problems or complaints. She was working in her garden on and noticed these early yesterday evening. She has had no incident she is aware of, but there were ants and ants all over. MEDICATIONS: Prometrium and Vivelle patch. ADR/ALLERGIES: NONE. OBJECTIVE: VS/GEN: BP: 138/76. T: 97.1 orally. P: 96 regular. R: 16. SKIN: Two small areas are noted in the 0.5 x 0.5 cm to 1.0 x 1.0 cm left lateral hip region, minimally elevated red consistent with insect bites. Mild excoriation is noted. There is no vesiculation or pus. ASSESSMENT: Rash consistent with insect bites. PLAN: Lidex cream twice daily was given over three to four days. Ice two or three times daily. Recheck otherwise will be p.r.n. basis. Call if other questions. TT: CT: [id number]:[id number] C: DOCUMENT: [id number] Conversion, [facility] - 03/17/2002 12:01 AM CDT Phone Note signed by at 03/17/02 1945 Author: [facility] Conversion Service: (none) Author Type: (none) Filed: 01/22/11 0706 Note Time: 03/17/02 0001 Status: Signed Senior Hardware Design Engineer: Winnie Conversion IMPRESSION: Yeast inf TO: MARGOT MOTLEY FROM: JOSELITO JESUS [phone] * PROVIDER MESSAGE: ROUTINE * 03/17/02 01:14PM * *WITHIN 4 HOURS * MESSAGE: patient calling she was * HOME PHONE:[phone] * recently on clindamyacin for a * CONTACT PHONE:[phone] * sinus infectio n stopped this 8 * PHARMACY: [phone] * days ago states she has had vaginal yeast sx x 5 days cottage cheese type drainage and puritic. Requesting diflucan SUBJECTIVE: ALLERGIES/SENSITIVITIES... NKA 11/10/01 03/17/02 CURRENT MEDICATIONS... Vivelle patch (0.05) Prometrium 200 mg qd 03/17/02 PERTINENT PAST HISTORY... Chronic Sinusitis; Varicose veins 11/10/01 03/17/02 WEIGHT: PATIENT IS NOT . PATIENT IS NOT NURSING. ASSESSMENT: Yeast inf PLAN: DISPOSITION: NO DISPOSITION GIVEN CALL BY JOSELITO LEE 03/17/2002 01:11PM [phone] ADDENDUM: <> 03/17/2002 02:33PM by NEDRA DAHL: per doc tiesha: diflucan 150mg, po, x 1 , if not better by wednesday, advised pt. to make appt. to be seen. pt aggreed. Airam Mccall MD - 01/17/2002 12:01 AM CDT Progress Notes signed by at 10/21/02 1828 Author: Airam Reyes MD Service: (none) Author Type: Physician Filed: 01/22/11 0543 Note Time: 01/17/02 0001 Status: Signed Senior Hardware Design Engineer: Airam Reyes MD (Physician) IMPRESSION: Postop check. SUBJECTIVE: Patient had revision of her browlift three weeks ago. She wonders if the lateral brow could be lifted anymore. I really thought that I moved it about as far as I could but I certainly could reassess it for her in six months or so. She also wanted to have her breast reduction scars checked and these seemed to be a little bit wide and might benefit from revision at some point if she wanted to do that. OBJECTIVE: N/A ASSESSMENT: Postop check. PLAN: N/A TT: CT: :[id number] C: DOCUMENT: [id number] Airam Mccall MD - 01/03/2002 12:01 AM CST Progress Notes signed by at 10/21/02 182 Author: Airam Reyes MD Service: (none) Author Type: Physician Filed: 01/22/11 0524 Note Time: 01/03/02 0001 Status: Signed Senior Hardware Design Engineer: Airam Reyes MD (Physician) IMPRESSION: Postop check for scar revision. SUBJECTIVE: Patient here for revision of her brow lift scars with a little more elevation, as well. OBJECTIVE: N/A ASSESSMENT: Postop check for scar revision. PLAN: Both areas were infiltrated with local anesthetic. The posterior edge of the old scar was incised and the scalp was undermined anteriorly. The posterior edge of the incision was pushed forward, and the anterior edge brought back so that the amount to be resected could be determined. A closure was performed with 3- 0 PDS and 4-0 Prolene. Recheck five days for suture removal. TT: CT: :[id number] C: DOCUMENT: [id number] Jose David Abbott MD - 12/28/2001 12:01 AM CST Progress Notes signed by at 10/21/02 182 Author: Jose David Ariza MD Service: (none) Author Type: Physician Filed: 01/22/11 0517 Note Time: 12/28/01 0001 Status: Signed Senior Hardware Design Engineer: Jose David Ariza MD (Physician) IMPRESSION: Mild to moderate low frequency sensorineural hearing loss, bilaterallysymmetric. Facial pain and pressure. SUBJECTIVE: Ms. Sheikh returns for follow up. I last saw her on 03/22/2001. She is seen for inferior turbinate hypertrophy. She has undergone inferior turbinate submucous resection with radiofrequency ablation. She states that her main symptoms, which she is concerned about now, is some recent episodes of facial pain and pressure, which usually occur daily with headaches. She does wonder if it is secondary to an infection. She also is concerned with regards to her hearing. She feels that she does have some mild hearing loss. An audiogram was obtained, which does show mild to moderate sensorineural hearing loss, which is not necessarily new for her, as she does note she has had a loss in her left ear. Speech discrimination was 96% right, and 100% left at 55 decibels. OBJECTIVE: VS/GEN: HEENT: Physical exam shows the external auditory canals, TMs and middle ears to be clear. Intranasally, the nose is without lesions or masses. No purulence seen. Oral cavity, oropharynx are negative. Nasal cavities are patent. ASSESSMENT: 1. Mild to moderate low frequency sensorineural hearing loss, bilaterally symmetric. 2. Facial pain and pressure. I do not see an infectious etiology present. The nose is negative. PLAN: She may benefit from decreasing manipulation. All questions were answered. TT: CT: [facility]:[id number] C: DOCUMENT: [id number] ICATOR Clifton Rasmussen MD - 12/07/2001 12:01 AM CST Progress Notes signed by Clifton Rasmussen MD at 12/13/01 1531 Author: Clifton Rasmussen MD Service: (none) Author Type: Physician Filed: 01/22/11 0447 Note Time: 12/07/01 0001 Status: Signed Senior Hardware Design Engineer: Clifton Rasmussen MD (Physician) IMPRESSION: Pain in butt, right calf, and some control with acupuncture. SUBJECTIVE: Ramona is here for another acupuncture treatment. Unfortunately, she showed up at [facility] instead of [facility] today at no fault to her. We discussed today, however, that we should have her explore the possibility of an outside acupuncture clinic rather than through ours, as I actually am no longer taking in acupuncture patients. She would be interested with this. She is also wondering about getting another letter for therapeutic massages, as it has been beneficial. OBJECTIVE: We proceeded once again with acupuncture and the following points were used. GV20 along with LI4, LU7, ST36, SP6, and SP10. These latter two points were stimulated using electrical current at 2.5 Hz. ASSESSMENT: Pain in butt, right calf, and some control with acupuncture. PLAN: A list of [facility] approved acupuncturists were provided. She inquired about my recommendations and I gave her a choice of three. A letter for therapeutic massage would also be dictated. At this point, this is the last session of acupuncture for Ramona within the clinic. She is benefitting and would continue to gain relief or have relief with acupuncture through the outside clinics. TT: CT: MPR:[id number] C: DOCUMENT: [id number] ICATOR Conversion, [facility] - 11/10/2001 12:01 AM CST Phone Note signed by at 11/10/01 1008 Author: Winnie Conversion Service: (none) Author Type: (none) Filed: 01/22/11 0408 Note Time: 11/10/01 0001 Status: Signed Senior Hardware Design Engineer: Winnie Conversion IMPRESSION: Bleeding TO: MISSAEL RADHA FROM: DAISY CHRISTENSEN [id number] * PROVIDER MESSAGE: RETURN * 11/10/01 10:08AM * CALL REQUESTED * MESSAGE: Patient had a D&C with * HOME PHONE:[phone] * removal of polyp Nov 01. Was told * CONTACT PHONE:[phone] * to expect some bleeding x 5 days. * Ramona Leave message on * She is still having some brownish * machine, not with son * red vag discharge, varies from * PHARMACY: [phone] * light flow to spotting. She is now * Snyders * taking Prometrium 200 qd, down from Prometrium 200 mg bid and wonders if this might be why. Pt unavailable, requests you leave message on her home machine. If her son answers, have him hang up so you can call for the machine. SUBJECTIVE: ALLERGIES/SENSITIVITIES... NKA 11/10/01 CURRENT MEDICATIONS... Vivelle patch (0.05) Prometrium 200 mg qd 11/10/01 PERTINENT PAST HISTORY... Chronic Sinusitis; Varicose veins 11/10/01 WEIGHT: PATIENT IS NOT . PATIENT IS NOT NURSING. ASSESSMENT: Bleeding PLAN: DISPOSITION: NO DISPOSITION GIVEN CALL BY DAISY CHRISTENSEN 11/10/2001 09:58AM [phone] ADDENDUM: <> 11/11/2001 11:58AM by BRISA CARROLL: Pt calling for an answer to above note. Dr Montgomery out of town will be given to [facility] or Dr Cobb. <> 11/11/2001 01:18PM by BRISA CARROLL: Per Dr Cobb can bleed up to 2wks after D and C. This is normal. <> 11/18/2001 05:32PM by MISSAEL MONTGOMERY MD: LEFT MESSAGE YESTERDAY THAT BLEEDING PROBABLY FROM THICK BASE OF ENDOM ETRIAL POLYP. IF PERSISTS COULD INCREASE PROMETRIUM TO BID. ICATOR Airam Reyes MD - 11/10/2001 12:01 AM CST Progress Notes signed by at 10/21/02 1821 Author: Airam Reyes MD Service: (none) Author Type: Physician Filed: 01/22/11 0407 Note Time: 11/10/01 0001 Status: Signed Senior Hardware Design Engineer: Airam Reyes MD (Physician) IMPRESSION: Postop check for brow lift. SUBJECTIVE: Mrs. Sheikh is eight months post endoscopic brow lift and upper lid blepharoplasty. OBJECTIVE: HEENT: She has not had any additional Botox injections. She thinks that her lateral brows are lower than they were preoperatively, at least in relation to her medial brows and would like to have a little bit more scalp skin taken out laterally to pull the brow up a little bit. Her lateral scars are wide and do show when she parts her hair through the scar, so this is certainly a reasonable thing to do in association with narrowing the scars. Her brow orientation, medial brow and lateral brow are essentially as they were preoperatively and the brow is clearly above the orbital rim now. ASSESSMENT: Postop check for brow lift. PLAN: We will plan another time to do the revision of the scar for her and she feels that that would be helpful for her. 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 TT: CT: :[id number] C: DOCUMENT: [id number] ICATOR Ángel Hodgson MD - 10/24/2001 12:01 AM CST Progress Notes signed by Ángel Hodgson MD at 04/05/02 1632 Author: Ángel Hodgson MD Service: (none) Author Type: Physician Filed: 01/22/11 0341 Note Time: 10/24/01 0001 Status: Signed Senior Hardware Design Engineer: Ángel Hodgson MD (Physician) IMPRESSION: Spider varicose veins. SUBJECTIVE: Patient is seen in followup for varicose veins. Patient has continued spider varicosities, which she is concerned about, in her left leg, as well as in her right leg. These would be ideal candidates for sclerotherapy. She has had sclerotherapy with success before. She did have some hyperpigmentation, but she is not overly concerned about that, in the injection areas, and that they can be bleached later on. OBJECTIVE: N/A ASSESSMENT: Spider varicose veins. PLAN: Patient to be scheduled for sclerotherapy in the future once the solution is acquired. TT: CT: MTS:[id number] C: DOCUMENT: [id number] Margot Motley MD - 10/24/2001 12:01 AM CST Progress Notes signed by Margot Motley MD at 11/04/01 1130 Author: Margot Motley MD Service: (none) Author Type: Physician Filed: 01/22/11 0341 Note Time: 10/24/012157 Status: Signed Senior Hardware Design Engineer: Margot Motley MD (Physician) IMPRESSION: Health maintenance. Dysfunctional uterine bleeding. SUBJECTIVE: Chief Complaint: Physical and preop. A 56-year-old female here for a routine physical. She also needs a preop form filled out. She is going to be having a D and C and hysteroscopy for dysfunctional perimenopausal bleeding the past week. See previous notes for history on her bleeding problems. She has been on Prometrium 400 mg a day and Vivelle patch 0.05 twice a week. That has been controlling bleeding fairly well. She did have some light bleeding at the end of September for about three days. OTHER CONCERNS: She is wondering about health screening such as colonoscopy, bone density, thyroid. Has some skin spots she would like to have checked. Has history of an enlarged thyroid. Told that her left side was larger than her right. Is not causing any symptoms that she can tell and wants to discuss calcium supplements. PAST MEDICAL HISTORY: She is currently on Prometrium 200 mg b.i.d., Vivelle patch 0.05 twice weekly. ALLERGIES: NONE KNOWN. SOCIAL HISTORY: She is . 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 She is a never smoker. Has alcohol about once a month. Has an occasional monogamous partner. She is not entirely sure whether he is also monogamous, however. Has healthy diet. SURGERIES: She has had , breast reduction, laparoscopic Birch bladder repair, breast biopsies and brow lift. FAMILY HISTORY: Significant for hypertension and colon cancer. REVIEW OF SYSTEMS: Complete and recorded in the chart. Has some sinus problems, but those are much improved. Constipation if primarily with calcium supplements. She has some occasional bursitis in her right leg and has skin spots she would like to have checked. OBJECTIVE: VS/Gen: BP: 142/76. Ht: 67 in. Wt: 149-1/4 lb. Healthy-appearing female in no acute distress. HEENT: Sclerae and conjunctivae benign. TMs, EACs normal. Pharynx benign. NECK: Supple. No adenopathy or thyromegaly. BREASTS: No masses, discharge, axillary adenopathy. Well-healed breast reduction scars. LUNGS: Clear. CV: Regular rate. S1, S2. No murmurs. No gallops. ABD: Soft, nontender. No HSM, masses, guarding, rebound. Well- healed surgical scar. FITTINGS FINISHER: Normal external female genitalia. Perineum urethra and vagina. Pap smear is done. Gen-Probe for GC and Chlamydia is done. Bladder is well suspended. Uterus midline, normal size. Upper limits of normal. Adnexa benign. RECTAL: Confirms no masses. SKIN: She has some varicosities in the legs. No suspicious other keratotic lesions. EXTREMITIES: No edema. ASSESSMENT: 1. Health maintenance. 2. Dysfunctional uterine bleeding. PLAN: Check TSH, hemoglobin, Pap, Gen-Probe, HIV and EKG. Refilled her Jobst stockings, which she wears fairly regularly during the school year. Follow up with me in a year or p.r.n. TT: CT: FAMILIA:[id number] C: DOCUMENT: [id number] ICATOR Missael Montgomery MD - 10/20/2001 12:01 AM CST Progress Notes signed by at 11/25/02 0001 Author: Missael Montgomery MD Service: (none) Author Type: Physician Filed: 01/22/11 0337 Note Time: 10/20/01 0001 Status: Signed Senior Hardware Design Engineer: Missael Montgomery MD (Physician) IMPRESSION: Endometrial polyp. Subserous fibroid. Irregular bleeding. SUBJECTIVE: Btjra-xins-erhb female, para 1-0-0-[address] consultation [address] Dr[address] Cobb for a possible D&C. Patient was having some heavy irregular bleeding this fall. She saw Dr. Cobb, who did an endometrial biopsy, was normal. She had been on Vivelle patch plus Prometrium. He recommended increasing the Prometrium to twice daily and now she only has occasional spotting. She did have a sonohysterogram on 10/03, which showed an 11-mm endometrial polyp in the upper fundus. There was also a 4.2-cm subserous fibroid on the right. MEDICATIONS: Vivelle 0.05-mg patch, Prometrium b.i.d. ADR/ALLERGIES: NONE. Nonsmoker. OBJECTIVE: VS/Gen: BP: 120/70. Ht: 5 ft. 7 in. Wt: 148. FITTINGS FINISHER: On pelvic exam, uterus retroverted. It is mildly enlarged. Adnexa negative. ASSESSMENT: Endometrial polyp. Subserous fibroid. Irregular bleeding. PLAN: Discussed hysteroscopy and D&C, and this will be scheduled with local anesthesia. TT: CT: CC: LAKHWINDER COBB MD, [employer] [facility] MARGOT MOTLEY MD, [facility] NSS:[id number] C: DOCUMENT: [id number] ICATOR Lakhwinder Cobb - 10/03/2001 12:01 AM CST Progress Notes signed by Lakhwinder Cobb MD at 07/13/02 1213 Author: Lakhwinder Cobb MD Service: (none) Author Type: Physician Filed: 01/22/11 0312 Note Time: 10/03/01 0001 Status: Signed Senior Hardware Design Engineer: Lakhwinder Cobb MD (Physician) IMPRESSION: Sonohysterogram. SUBJECTIVE: Diagnosis: Postmenopausal bleeding, and this is a procedure. It is a sonohysterogram. HPI: This patient has had a lot of problems with menorrhagia and bleeding. Had a very thick endometrial lining, and had an endometrial biopsy August 04, 2001. The biopsy was normal, and there was a hint of a polyp. MEDS: She is on the Vivelle patch and has been on Cycrin, but currently is taking Prometrium. OBJECTIVE: Description of the Procedure: Patient was seen in ultrasound in the section of x-ray. The cervix was sponged with Betadine, and then the intrauterine balloon catheter was inserted without incident. The saline solution was injected by Dr. Javier, and she does indeed have a sessile polyp in the uterus. Please see Dr. Javier's dictation for more details. ASSESSMENT: Sonohysterogram. PLAN: I discussed this with her on the spot, and gave her the name of one my colleagues. She will get an appointment with him to discuss proceeding with a D&C. Answered her questions. TT: CT: PMM:[id number] C: DOCUMENT: [id number] ICATOR Conversion, [facility] - 09/23/2001 12:01 AM CST Phone Note signed by at 09/23/01 5858 Author: [facility] Conversion Service: (none) Author Type: (none) Filed: 01/22/11 0303 Note Time: 09/23/01 0001 Status: Signed Senior Hardware Design Engineer: Imr Conversion IMPRESSION: emesis/diarrhea TO: MARGOT MOTLEY FROM: ELLY MARTINEZ LPN [phone] * PROVIDER MESSAGE: ROUTINE * 09/23/01 04:52PM * *WITHIN 4 HOURS * MESSAGE: Pt calling reports having * HOME PHONE:[phone] * muscle aches, not sure about fever, * CONTACT PHONE:[phone] * emesis. Sxs started around midnight. Vomited several times, diarrhea. 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 No blood in emesis or stool. No stomach cramping. No lightheaded/dizzy. Ins tructed on BRAT diet and to call back or get to if unable to keep a nything down. SUBJECTIVE: ALLERGIES/SENSITIVITIES... NKA: 09/12/01 09/23/01 CURRENT MEDICATIONS... Estrogen patch, prometrium 400mgm, sulindac 09/12/01 tylenol 09/23/01 PERTINENT PAST HISTORY... Chronic Sinusitis; Varicose veins; 07/01/01 08/11/01 09/12/01 09/23/01 WEIGHT: PATIENT IS NOT . PATIENT IS NOT NURSING. 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 SUBJECTIVE: CHIEF COMPLAINT: Patient who was last seen by Dr. 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 HPI: States that she feels the orthotics are too hard even though they do fit in her dress shoes. She is wondering what other options are available. Overall she is doing fairly well. Not having a lot of discomfort. Her biggest concern is the rigidity of the devices which she initially thought would work for her, but are not successful. OBJECTIVE: EXTREMITIES: Exam reveals minimal discomfort in the area of the second intermetatarsal space of the right foot. The orthotic devices do fit well to the plantar contour. 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 PLAN: Discussed treatment options with the patient. Discussed the difficulty with orthotic devices especially the accommodative devices that she desires and that they will probably not fit into traditional women's dress shoes. Discussed the usage of a more deeper toe box, heavier duty type dress shoe with options this may offer her. She will consider her options, but at this point will try to make do with lrol-msp-ynkqunc blue temporary devices from the [facility]. DJP:[id number] C: DOCUMENT: [id number] ICATOR Conversion, [facility] - 09/12/2001 12:01 AM CST Phone Note signed by at 09/12/01 9196 Author: Imr Conversion Service: (none) Author Type: (none) Filed: 01/22/11 0246 Note Time: 09/12/012157 Status: Signed Senior Hardware Design Engineer: Winnie Conversion IMPRESSION: Prometrium refill TO: LAKHWINDER COBB FROM: BRISA CARROLL [id number] 09/12/01 * PROVIDER MESSAGE: RETURN * 09:30AM * CALL REQUESTED * MESSAGE: Requests prometrium refill. * HOME PHONE:[phone] * Told to take 200mgm twice a * CONTACT PHONE:[phone] * day.(Not in dictation) * ramona * SUBJECTIVE: * PHARMACY: [phone] * ALLERGIES/SENSITIVITIES... NKA: * Mamadou Long * 09/12/01 CURRENT MEDICATIONS... Estrogen patch, prometrium 400mgm, zulindac 09/12/01 PERTINENT PAST HISTORY... Chronic Sinusitis; Varicose veins; 07/01/01 08/11/01 09/12/01 WEIGHT: PATIENT IS NOT . PATIENT IS NOT NURSING. ASSESSMENT: Prometrium refill PLAN: DISPOSITION: NO DISPOSITION GIVEN CALL BY BRISA CARROLL 09/12/2001 09:24AM [id number] ADDENDUM: <> 09/13/2001 10:55AM by BRISA CARROLL: Pharmacy called 09/12 to fill prometrium 200 mgm daily. Pt called back to request 200mgm bid which stopped her bldg. New Rx called to her pharmacy today per Dr Aguayo order. Pt notified. ICATOR Solomon Alexis MD - 09/10/2001 12:01 AM CST Progress Notes signed by at 11/25/022157 Author: Solomon Alexis MD Service: (none) Author Type: Physician Filed: 01/22/11 0245 Note Time: 09/10/012157 Status: Signed Senior Hardware Design Engineer: Solomon Alexis MD (Physician) IMPRESSION: Viral URI. SUBJECTIVE: Ramona is a 56-year-old female who comes to [facility] because of sore throat and cough for the last three days. 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 MEDS: Sulindac, Prometrium, estrogen patch, Actifed. OBJECTIVE: BP: 131/75. T: 97.4. P: 76. R: 20. She appears well, in no acute distress. HENT: Oropharynx is slightly inflamed. Rapid strep test negative. TMs normal. NECK: Supple. LUNGS: Chest is clear. ASSESSMENT: Viral URI. PLAN: Symptomatic treatment. MCKINLEY:[id number] C: DOCUMENT: [id number] Lakhwinder Higgins - 08/16/2001 12:01 AM CST Progress Notes signed by at 11/25/022157 Author: Lakhwinder Cobb MD Service: (none) Author Type: Physician Filed: 01/22/11 0213 Note Time: 08/16/012157 Status: Signed Senior Hardware Design Engineer: Lakhwinder Cobb MD (Physician) IMPRESSION: Postmenopausal bleeding. SUBJECTIVE: A 56-year-old female in to discuss an endometrial biopsy, which was carried out on 08/04. The biopsy was essentially normal and showed weakly proliferative endometrium. There is some hint of endocervical polyp. The endometrial stripe had measured 1.2 cm, however. She presently is on a patch daily and then on Prometrium 200 mg daily. The bakery deliverer did recommend repeating the ultrasound to take another look at the right ovary, which measured in the 4+ cm dimensions in each measurement. I told her I did not think these numbers were abnormal, but did agree we should repeat the study. Please see my dictation from 08/04 and I will not repeat this same information. OBJECTIVE: Patient not examined. ASSESSMENT: Postmenopausal bleeding. PLAN: I recommended that she have a sonohysterogram at the time of the next ultrasound. The ultrasound has been scheduled late in August and we will have her alter that appointment time to include the sonohysterogram portion. I am still concerned that because of the thickness of the endometrium odd shape that there is a polyp within and I think we should attempt to define this at this time. This was a 25-minute visit today, all of it spent in discussing the pathology report and the ultrasound, and HRT, and her history, and her diagnostic steps. PMM:[id number] C: DOCUMENT: [id number] ICATOR Conversion, [facility] - 08/11/2001 12:01 AM CST Phone Note signed by at 08/11/01 0856 Author: [facility] Conversion Service: (none) Author Type: (none) Filed: 01/22/11 0207 Note Time: 08/11/01 0001 Status: Signed Senior Hardware Design Engineer: Winnie Conversion TO: LAKHWINDER COBB FROM: AMANDA CAM LPN [id number] * PROVIDER MESSAGE: ROUTINE * 08/11/01 08:56AM * *WITHIN 4 HOURS * MESSAGE: WAS GIVEN RX FOR PROVERY 10 * HOME PHONE:[phone] * MG, SIG 3 PILLS QD. PHARMACY TOLD * CONTACT PHONE:[phone] * PT. TO DOUBLE CHECK WITH DR. COBB ABOUT DIRECTIONS. PT HUNG UP BEFORE NOTE COMPLETED. PLEASE CALL PT. SUBJECTIVE: ALLERGIES/SENSITIVITIES... NKA: 07/01/01 08/11/01 CURRENT MEDICATIONS... Does not know name; 07/01/01 08/11/01 PERTINENT PAST HISTORY... Chronic Sinusitis; Varicose veins; 07/01/01 08/11/01 WEIGHT: PATIENT IS NOT . PATIENT IS NOT NURSING. ASSESSMENT: PLAN: DISPOSITION: NO DISPOSITION GIVEN CALL BY AMANDA CAM LPN 08/11/2001 08:53AM [id number] ADDENDUM: <> 08/11/2001 02:20PM by REY ESTEBAN ENVIRONMENTAL LAWYER: Msg left w/ pt per Dr. Cobb 30 mg qd is correct. ICATOR Lakhwinder Cobb - 08/04/2001 12:01 AM CST Progress Notes signed by Lakhwinder Cobb MD at 07/13/02 1016 Author: Lakhwinder Cobb MD Service: (none) Author Type: Physician Filed: 01/22/11 0158 Note Time: 08/04/01 0001 Status: Signed Senior Hardware Design Engineer: Lakhwinder Cobb MD (Physician) IMPRESSION: Endometrial hyperplasia and hormone replacement therapy. 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 She is sent by Dr. Motley because of bleeding problems. She is 55 years of age and was added on to my schedule today because of a scheduling error. She is here because of irregular menses. She has been scheduled for an endometrial biopsy. States she has had a lot of problems with menstrual irregularity and, in July, had periods on the , , and the . She tells me, because of a great fear that she has of becoming , that she had an IUD inserted by the [facility] in [facility] earlier this year. States, historically, she has had irregular menses for a long time. She tried several medications to rectify this. She has done an estrogen Vivelle patch and has been on Cycrin, currently taking Prometrium 100 or 200 mg daily. The ultrasound was obtained on the 20 of July and the endometrium is thick, measuring about 12 mm. She also has a slight enlargement of her right ovary, with some small focus of calcification. Left ovary was normal. Interestingly, they did not describe the IUD in the ultrasound scan. She is here today essentially for an endometrial biopsy. The meds include, I believe, the Vivelle patch, sulindac, Sudafed, Prometrium. DOES NOT HAVE ANY ALLERGIES. Is unsure of her immunization status. HABITS: Does not use tobacco, alcohol, or caffeine. Does exercise often, five or six times a week, and does self breast exams weekly. Does wear a seat belt. She is para 1-0-0-1. Has a 22-year-old child. Had some concerns about exposure to tuberculosis in children who are refugees, who we enrolled in school. History of bladder troubles and varicose veins, but otherwise regards herself in good general health. I recommended to her that we do the biopsy today and also remove the IUD and this could well be a major compounding factor, and I do not feel that she needs to be concerned about becoming in a soon- to-be 56-year-old female. OBJECTIVE: With her consent, the following was done: The cervix was exposed. I was initially unable to remove the IUD. Endometrial aspiration was carried out with Pipelle device and then, following that, I did a paracervical block, 1 percent Xylocaine with epinephrine, and then dilated the cervix slightly and, with a needle local [place] truck driver, was able to grasp the strings and remove the ParaGard IUD. ASSESSMENT: Endometrial hyperplasia and hormone replacement therapy. PLAN: I have asked her to come back to see me for a half-hour visit in about a week and we can discuss the biopsy. In the meantime, we are going to schedule her for another ultrasound in mid September as per the radiologist's suggestion, and that will be done today; and then we will see her again in about a week to discuss HRT and so forth. CC: MARGOT MOTLEY MD PMM:[id number] C: DOCUMENT: [id number] ICATOR Conversion, [facility] - 07/25/2001 12:01 AM CDT Phone Note signed by at 07/25/01 0241 Author: [facility] Conversion Service: (none) Author Type: (none) Filed: 01/22/11 0143 Note Time: 07/25/01 0001 Status: Signed Senior Hardware Design Engineer: Winnie Conversion IMPRESSION: US RESULTS TO: EDWARD HERNANDEZ FROM: YOLI RAY LPN [id number] * PROVIDER MESSAGE: RETURN * 07/25/01 02:35PM * CALL REQUESTED * MESSAGE: OKAY FOR WEDNESDAY. THE * HOME PHONE:[phone] * PATIENT IS CALLING FOR THE PELVIC * CONTACT PHONE:[phone] * US DONE LAST WEEK AT [facility] * CELL OKAY FOR WEDNESDAY * ALSO NEEDS TO KNOW IF NEEDS AN APPT FOR BX OR HORMO NE CHANGE. PLEASE LEAVE DETAILED MESSAGE ON CELL PHONE OR WHEN SHE COULD CALL YOU BACK. SUBJECTIVE: ALLERGIES/SENSITIVITIES... NKA: 07/01/01 CURRENT MEDICATIONS... Does not know name; 07/01/01 PERTINENT PAST HISTORY... Chronic Sinusitis; Varicose veins; 07/01/01 WEIGHT: PATIENT IS NOT . PATIENT IS NOT NURSING. ASSESSMENT: US RESULTS PLAN: DISPOSITION: NO DISPOSITION GIVEN CALL BY YOLI RAY LPN 07/25/2001 02:33PM [id number] ADDENDUM: <> 07/26/2001 09:01AM by UYEN RING ENVIRONMENTAL LAWYER: dr motley left message--thickened endometrium on u/s--consult rn vascular re: iud removal, emb vs hysterscopy ICATOR Conversion, [facility] - 07/22/2001 12:01 AM CDT Phone Note signed by at 07/22/01 1036 Author: [facility] Conversion Service: (none) Author Type: (none) Filed: 01/22/11 0141 Note Time: 07/22/01 0001 Status: Signed Senior Hardware Design Engineer: Winnie Conversion IMPRESSION: Request for US results TO: MARGOT MOTLEY FROM: JOSELITO LEE [phone] * PROVIDER MESSAGE: FYI *NO * 07/22/01 10:36AM * INPUT NECESSARY * MESSAGE: Patient calling for results * HOME PHONE:[phone] * of ultra sound from 07/20 she is * CONTACT PHONE:[phone] * unable to leave contact number as she is traveling she woll call back around 4: 30 SUBJECTIVE: ALLERGIES/SENSITIVITIES... NKA: 07/01/01 CURRENT MEDICATIONS... Does not know name; 07/01/01 PERTINENT PAST HISTORY... Chronic Sinusitis; Varicose veins; 07/01/01 WEIGHT: OMITTED ASKING ABOUT . OMITTED ASKING ABOUT NURSING. ASSESSMENT: Request for US results PLAN: DISPOSITION: NO DISPOSITION GIVEN CALL BY JOSELITO JESUS 07/22/2001 10:33AM [phone] ADDENDUM: Son Mcgregor MD - 07/13/2001 12:01 AM CDT Progress Notes signed by at 10/21/02 8510 Author: Son Malloy MD Service: (none) Author Type: Physician Filed: 01/22/11 0129 Note Time: 07/13/012157 Status: Signed Senior Hardware Design Engineer: Son Malloy MD (Physician) IMPRESSION: Trochanteric bursitis. Metatarsalgia. Plantar fasciitis. SUBJECTIVE: Ramona is in today with a long list of problems. She has gotten good relief from her dorsiflexion night splints for the plantar fasciitis but she said the velcro was wearing out. She has been complaining of a burning sensation over the back of her heals. She has also complained of some lateral thigh pain reminiscent of her previous episodes of trochanteric bursitis. This came on in the summer after extensive walking [place]. She is also complaining of some pain now in the back of both legs and some low back pain. She has had some physical therapy for this. Ibuprofen has not been of much help for her. Tylenol has helped. OBJECTIVE: She has good lumbar spine range of motion with no restriction in any direction. No reproduction of her pain into her legs as she goes through range of motion. No paravertebral spasm. She can heel walk and toe walk and do deep squats without difficulty. She has very brisk, symmetric patellar and Achilles reflexes. There is some mild decrease in light touch sensation over the lateral portion of the distal end of her right leg. No atrophy noted. There is minimal tenderness over the trochanteric bursa today. ASSESSMENT: 1. Trochanteric bursitis, now improving. 2. Metatarsalgia, responsive to shoe inserts. 3. Plantar fasciitis responsive to dorsiflexion night splints. PLAN: I am going to try her on Clinoril to see if this gives her better relief for the tenderness she is having in the Achilles bursa region. We will have her night splints repaired. I did not inject her today since her symptoms of trochanteric bursitis are minimal. She will follow up as needed. PRD:[id number] C: DOCUMENT: [id number] ICATOR Conversion, [facility] - 07/01/2001 12:01 AM CDT Phone Note signed by at 07/01/01 0911 Author: [facility] Conversion Service: (none) Author Type: (none) Filed: 01/22/11 0114 Note Time: 07/01/01 0001 Status: Signed Senior Hardware Design Engineer: Winnie Conversion TO: MARGOT MOTLEY FROM: BENITA GUSTAFSON RN [phone] * PROVIDER MESSAGE: ROUTINE * 07/01/01 09:11AM * *WITHIN 4 HOURS * MESSAGE: Pt. calling; she would like * HOME PHONE:[phone] * to know if she should keep taking * CONTACT PHONE:[phone] * her medication (she does not know * OK for Wednesday afternoon * the name - HRT) every day during the month of July, that is what she did in June. Pt. states that Dr. Motley keeps a computer with her so she can look up the med. SUBJECTIVE: ALLERGIES/SENSITIVITIES... NKA: 07/01/01 CURRENT MEDICATIONS... Does not know name; 07/01/01 PERTINENT PAST HISTORY... Chronic Sinusitis; Varicose veins; 07/01/01 WEIGHT: OMITTED ASKING ABOUT . OMITTED ASKING ABOUT NURSING. ASSESSMENT: PLAN: DISPOSITION: NO DISPOSITION GIVEN CALL BY BENITA GUSTAFSON RN 07/01/2001 09:04AM [id number] ADDENDUM: <> 07/01/2001 09:12AM by BENITA GUSTAFSON RN: Pt. calling back, she checked with pharmacy and the medication she is taking is Prometrium. She also wants to be sure Dr. Motley knows that she is having and US on July 18. <> 07/04/2001 02:12PM by UYEN RING LPN: per dr motley. Yes--pt should stay on the same dose of prometrium pre scribed by rn vascular at least until we have ultrasound reports. Please give pt above message when she calls back UNABLE TO REACH. <> 07/04/2001 03:25PM by JOSELITO LEE: Patient calliing back given the above message, verbalizes good underst anding. Airam Mccall MD - 06/28/2001 12:01 AM CDT Progress Notes signed by Airam Reyes MD at 11/02/01 1324 Author: Airam Reyes MD Service: (none) Author Type: Physician Filed: 01/22/11 0109 Note Time: 06/28/01 0001 Status: Signed Senior Hardware Design Engineer: Airam Reyes MD (Physician) IMPRESSION: Postop check. SUBJECTIVE: Ms. Sheikh is three months post endoscopic brow lift. She thinks that the right lateral brow might be lower. The medial brow has settled a little bit now that she is getting better movement with the wearing off of the Botox. She still has numbness, but the feeling is starting to return. I think that at this point she is still recovering from both surgery and from the Botox. OBJECTIVE: N/A ASSESSMENT: Postop check. PLAN: I think if she is comfortable with the position of the lateral brow, then a little further scalp excision could help. The medial brow position has softened and I think we should check her in three or four months. MC:[id number] C: DOCUMENT: [id number] Clifton Pink MD - 06/27/2001 12:01 AM CDT Progress Notes signed by Clifton Rasmussen MD at 07/08/01 0515 Author: Clifton Rasmussen MD Service: (none) Author Type: Physician Filed: 01/22/11 0108 Note Time: 06/27/012157 Status: Signed Senior Hardware Design Engineer: Clifton Rasmussen MD (Physician) IMPRESSION: Chronic right buttock pain with foot pain. Left neck pain, probably myofascial. SUBJECTIVE: Ramona is here for another acupuncture treatment. She does not have much pain in the thumbs, but she continues to have pain in the right buttock area, and recently she is developing electrical sensation in her heel. She continues to have pain in the ball of her right foot as well. On occasion she has pain in the left buttock area at the same level as the right. She points to the lower L5-S1 area and she also has pain in the neck area. She does not have any bowel or bladder control problems. Acupuncture seems to help, but it is not helping her back. OBJECTIVE: We proceeded with acupuncture. Please see the acupuncture treatment record. Did not examine her back, but she did not have any skin lesions or rash, and she was not in any acute distress. She ambulated without any antalgia, ataxia, or foot drop. ASSESSMENT: 1. Chronic right buttock pain with foot pain. Need to consider possibility of disk herniation. 2. Left neck pain, probably myofascial. PLAN: We will continue with acupuncture, but will also obtain x-rays of her low back to assess for any bone abnormalities. Because I am going on vacation, she is okay with following up on this upon my return. MPR:[id number] C: DOCUMENT: [id number] Winnie Martinez - 06/16/2001 12:01 AM CDT Phone Note signed by at 06/16/01 0903 Author: Winnie Martinez Service: (none) Author Type: (none) Filed: 01/22/1155 Note Time: 06/16/01 0001 Status: Signed Senior Hardware Design Engineer: Winnie Martinez IMPRESSION: Ultrasound scheduling SUBJECTIVE: ALLERGIES/SENSITIVITIES... NKA * HOME PHONE:[phone] * 04/11/01 05/06/01 CURRENT MEDICATIONS... vivvelle .05mg patch; medroxyprogersterone begining of the month 05/06/01 PERTINENT PAST HISTORY... Chronic Sinusitis; Varicose veins; 04/11/01 05/06/01 ASSESSMENT: Ultrasound scheduling DISPOSITION: NO DISPOSITION GIVEN PLAN: [facility] [place] COMMENTS... If pt calls to schedule pelvic u/s, Latanya will talk with her at front desk clerk, [phone]. She has paperwork at desk. CALL BY SOHA WILCOX RN 06/16/2001 09:02AM ADDENDUM: ICATOR Margot Motley MD - 06/14/2001 12:01 AM CDT Progress Notes signed by Margot Motley MD at 06/30/01 0840 Author: Margot Motley MD Service: (none) Author Type: Physician Filed: 01/22/11 0053 Note Time: 06/14/01 0001 Status: Signed Senior Hardware Design Engineer: Margot Motley MD (Physician) IMPRESSION: Postmenopausal bleeding with IUD in place. SUBJECTIVE: Chief Complaint: Irregular bleeding. Dmhpn-xcsa-fztm-old perimenopausal female who is having irregular bleeding. She has been on Vivelle estrogen patch and cyclic progesterone with withdrawal bleeding. She had never ceased periods all together. She is concerned about possibility of fertility. She had a period November 04 through and then through . She saw her tractor sweeper driver and requested IUD placement to make sure that she does not have any . From December through February she had one period a month. Had one period in March. In April she bled the through the , had spotting the through the . She saw her tractor sweeper driver at the end of April. He switched Provera to Prometrium, which she has been taking daily since then. In May she had a regular period the through and then had spotting much of the next three weeks, and some spotting June 07 and and no bleeding since then. She also notes she has had some increased leg pain after traveling and doing a great deal more walking. She is seeing physical therapy, and that is helping a great deal. OBJECTIVE: BP: 128/72. Wt: 144-3/4. Pelvic is deferred today. ASSESSMENT: Postmenopausal bleeding with IUD in place. PLAN: Check pelvic ultrasound. If she has abnormal thickening of the endometrium, will have her see gynecology for IUD removal and a possible hysteroscopy or biopsy. If it is normal, check an FSH. If that is in a postmenopausal range, would recommend that she have the IUD removed, which will probably help with the spotting. If the FSH indicates she is premenopausal, consider change of dose of her hormone to try to stop the spotting. FAMILIA:[id number] C: DOCUMENT: [id number] Conversion, [facility] - 06/07/2001 12:01 AM CDT Phone Note signed by at 06/07/01 2760 Author: Winnie Conversion Service: (none) Author Type: (none) Filed: 01/22/11 0045 Note Time: 06/07/01 0001 Status: Signed Senior Hardware Design Engineer: Winnie Conversion IMPRESSION: RX REFILL TO: MARGOT MOTLEY FROM: YOLI RAY LPN [id number] * PROVIDER MESSAGE: RETURN * 06/07/01 04:19PM * CALL REQUESTED * MESSAGE: PATIENT IS CALLING FOR A * HOME PHONE:[phone] * REFILL PROMETRIUM. WANTS A NEW * CONTACT PHONE:[phone] * PRESCRIPTION CALLED INTO THE * HOME CALL IF PROBLEM * PHARMACY FOR 200MG QD NUMBER 30 * PHARMACY: [phone] * SUBJECTIVE: * SNYDERS * ALLERGIES/SENSITIVITIES... NKA 04/11/01 05/06/01 CURRENT MEDICATIONS... vivvelle .05mg patch; medroxyprogersterone begining of the month 05/06/01 PERTINENT PAST HISTORY... Chronic Sinusitis; Varicose veins; 04/11/01 05/06/01 WEIGHT: PATIENT IS NOT . PATIENT IS NOT NURSING. ASSESSMENT: RX REFILL PLAN: DISPOSITION: NO DISPOSITION GIVEN CALL BY YOLI RAY LPN 06/07/2001 04:16PM [id number] ADDENDUM: <> 06/07/2001 04:55PM by UYEN RING ENVIRONMENTAL LAWYER: Per dr motley. Rx for prometrium 200 mg qd # 30 refill x 1 yr called to [facility] [phone] ICATOR Conversion, [facility] - 05/09/2001 12:01 AM CDT Phone Note signed by Margot Motley MD at 05/12/01 0922 Author: Winnie Conversion Service: (none) Author Type: (none) Filed: 01/22/11 0011 Note Time: 05/09/012157 Status: Signed Senior Hardware Design Engineer: Winnie Conversion IMPRESSION: Prometrium refill TO: MARGOT MOTLEY FROM: YONY STRICKLAND RN [id number] 05/09/01 * PROVIDER MESSAGE: ROUTINE * 02:45PM * *WITHIN 4 HOURS * MESSAGE: Recomended per Dr Motley * HOME PHONE:[phone] * that she was to continue with the * CONTACT PHONE:[phone] * Prometrium 200mg one daily for 30 * For another provider to * days. Another provider had * address. # or cell [phone] * origionally prescribed them. She * [phone] * will be out of town until May 30. * PHARMACY: [phone] * Has 17 left. Needing more called * [facility] * into pharm today. Can an associate call them into her pharm?_Rx [phone]. Wants enough for the remainder of this mo nth #13 and another month #43. CIP SUBJECTIVE: ALLERGIES/SENSITIVITIES... NKA 04/11/01 05/06/01 CURRENT MEDICATIONS... vivvelle .05mg patch; medroxyprogersterone begining of the month 05/06/01 PERTINENT PAST HISTORY... Chronic Sinusitis; Varicose veins; 04/11/01 05/06/01 WEIGHT: OMITTED ASKING ABOUT . OMITTED ASKING ABOUT NURSING. ASSESSMENT: Prometrium refill PLAN: DISPOSITION: NO DISPOSITION GIVEN CALL BY YONY STRICKLAND RN 05/09/2001 02:38PM [id number] ADDENDUM: <> 05/09/2001 02:58PM by BLANCA NUNEZ SPINNER BOX: PHARMACY CALLED WITH [facility] REQUESTED PROMETRIUM 200MG #[address] EDWARDS. <> 05/17/2001 12:40PM by YOLI VILA RN: pt calling from [facility]. Menses stopped a day ago, she continues on her prometrium. She is calling because today menses started again, and she is not happy about that and wonders if she should be doing anything different. Denies heavy bleeding or large clots. Nrs advise d that she should continue with order, keep her sept appt. and call or be seen if out of town if bleeding is heavy, or large clots, or feels lightheaded. pt agrees. FYI TO ONCALL CALL IF DIFFERENT ADVISE PT CAN BE REACHED ON CELL [phone], MAY NEED TO DIAL 1 FIRST. <> 05/17/2001 03:54PM by MARGOT ARORA: per dr jesus; pt should continue as advised. no call made to pt. ICATOR Conversion, [facility] - 05/06/2001 12:01 AM CDT Phone Note signed by at 05/06/01 7694 Author: [facility] Conversion Service: (none) Author Type: (none) Filed: 01/22/11 0009 Note Time: 05/06/01 0001 Status: Signed Senior Hardware Design Engineer: Winnie Conversion IMPRESSION: extended period TO: MARGOT MOTLEY FROM: JOSELITO LEE [phone] * PROVIDER MESSAGE: APPT * 05/06/01 11:15AM * NEEDED * MESSAGE: Patient calling states she * HOME PHONE:[phone] * has been having period for almost 2 * CONTACT PHONE:[phone] * months soaking 3 super tampons daily would like w/i this afternoon she is tra veling this w/e SUBJECTIVE: ALLERGIES/SENSITIVITIES... NKA 04/11/01 05/06/01 CURRENT MEDICATIONS... vivvelle .05mg patch; medroxyprogersterone begining of the month 05/06/01 PERTINENT PAST HISTORY... Chronic Sinusitis; Varicose veins; 04/11/01 05/06/01 WEIGHT: PATIENT IS NOT . PATIENT IS NOT NURSING. ASSESSMENT: extended period PLAN: DISPOSITION: NO DISPOSITION GIVEN CALL BY JOSELITO LEE 05/06/2001 11:12AM [phone] ADDENDUM: <> 05/06/2001 03:15PM by UYEN RING LPN: per dr motley. Pt told to take prometrium 200 mg daily for 1 month th en see me. ICATOR Conversion, [facility] - 05/02/2001 12:01 AM CDT Phone Note signed by at 05/02/01 1025 Author: Winnie Conversion Service: (none) Author Type: (none) Filed: 01/22/11 0002 Note Time: 05/02/01 0001 Status: Signed Senior Hardware Design Engineer: Winnie Conversion TO: MARGOT MOTLEY FROM: BENITA GUSTAFSON RN [id number] * PROVIDER MESSAGE: ROUTINE * 05/02/01 10:25AM * *WITHIN 4 HOURS * MESSAGE: Pt. calling: she recently * HOME PHONE:[phone] * returned from vacation, did a lot * CONTACT PHONE:[phone] * of walking, having leg pain and would like to have PT ordered. States Dr. Motley has done this before. SUBJECTIVE: ALLERGIES/SENSITIVITIES... NKA 04/11/01 CURRENT MEDICATIONS... HRT 04/11/01 PERTINENT PAST HISTORY... Chronic Sinusitis; Varicose veins; 04/11/01 WEIGHT: OMITTED ASKING ABOUT . OMITTED ASKING ABOUT NURSING. ASSESSMENT: PLAN: DISPOSITION: NO DISPOSITION GIVEN CALL BY BENITA GUSTAFSON RN 05/02/2001 10:22AM [id number] ADDENDUM: <> 05/02/2001 11:50AM by UYEN RING ENVIRONMENTAL LAWYER: per dr motley. Ok for p.t. Order sent to dept. pt will call and [facility] own appt with víctor deleon Clifton Pink MD - 04/25/2001 12:01 AM CDT Progress Notes signed by Clifton Rasmussen MD at 05/09/01 1501 Author: Clifton Rasmussen MD Service: (none) Author Type: Physician Filed: 01/21/11 9865 Note Time: 04/25/01 0001 Status: Signed Senior Hardware Design Engineer: Clifton Rasmussen MD (Physician) IMPRESSION: Right piriformis syndrome. Right foot pain, metatarsalgia, possible plantar fasciitis. SUBJECTIVE: Ramona is a patient that I have been performing acupuncture for her right foot pain and right piriformis syndrome. She tells me that when she went on vacation her pain returned and is wondering what else she can do for it. She is interested in continuing with acupuncture. She has had cortisone injections to the greater trochanter in the past which has helped and is wondering if that is something that can be done as well. She is not opposed to chiropractic treatment. OBJECTIVE: On physical exam she is tender in the right greater trochanter area and in the metatarsals of her right foot. We proceeded with acupuncture again and the details are as noted in the acupuncture shingle. ASSESSMENT: 1. Right piriformis syndrome. 2. Right foot pain, metatarsalgia, possible plantar fasciitis. PLAN: We performed acupuncture today and we will have her return in four weeks for another session. We will also consult with Dr. Hernandez to assist with her right piriformis syndrome. There is a myofascial component to this pain and hopefully chiropractic treatment can relieve some of her symptoms. MPR:[id number] C: DOCUMENT: [id number] Merrill Reyes MD - 04/13/2001 12:01 AM CDT Progress Notes signed by Merrill Reyes MD at 05/11/01 1143 Author: Merrill Reyes MD Service: (none) Author Type: Physician Filed: 01/21/11 2343 Note Time: 04/13/01 0001 Status: Signed Senior Hardware Design Engineer: Merrill Reyes MD (Physician) IMPRESSION: History of anorectal problems including thrombosed hemorrhoids, internal hemorrhoid bleeding, partial anorectal mucosal SUBJECTIVE: The patient is a 55-year-old female that Dr. Margot Motley asked me to see in consultation regarding her problem with hemorrhoids. Specifically, the patient has had a history in the past of bleeding, painless in type and in fact, approximately two months ago, had rubber banding of internal hemorrhoids elsewhere. The patient has also had a history in the past of thrombosed hemorrhoids. The patient states that on occasion, not recent, she has had tissue come out of her anal canal after a bowel movement that she needed to push back into place with her hand. She denies any recent bleeding. She states if she has hard bowel movements she has some pain with bowel movements. She has had no other symptoms of fever, abdominal pain, cramping. She denies unusual bowel movement habits or diarrhea. The patient otherwise appears healthy for her age. OBJECTIVE: Examination of the perianal area reveals normal perianal area with normal anal sphincter tone on digital exam. Anoscopy reveals no evidence of internal hemorrhoids or mixed hemorrhoids or thrombosed hemorrhoids. No evidence of tumor, fistula, or fissure. The patient was unable to produce partial anal rectal mucosal prolapse during this exam. ASSESSMENT: History of anorectal problems including thrombosed hemorrhoids, internal hemorrhoid bleeding, and partial anorectal mucosal prolapse currently asymptomatic. PLAN: I spent in our 30-minute consultation with patient, 25 minutes discussion of how to prevent anorectal problems with regard to her diet emphasizing high fiber and stool softener and fluids. The patient was given my name and number to contact me should she have a recurrence of symptoms that would at that time necessitate re-evaluation and consideration of more aggressive surgical therapy. Discussed in detail with patient. CC: MARGOT MOTLEY MD [facility]:[id number] C: DOCUMENT: [id number] Airam Reyes MD - 04/12/2001 12:01 AM CDT Progress Notes signed by Airam Reyes MD at 11/02/01 1321 Author: Airam Reyes MD Service: (none) Author Type: Physician Filed: 01/21/11 6915 Note Time: 04/12/012157 Status: Signed Senior Hardware Design Engineer: Airam Reyes MD (Physician) IMPRESSION: Postop check. SUBJECTIVE: Two weeks post-endoscopic brow lift. OBJECTIVE: The flaca are removed today. Wounds are healing uneventfully. She is still a little concerned because of the position of the medial aspect of the brow. This is still fairly edematous and she also has some Botox present which limits her ability to depress the medial brow even more. This is likely to change noticeably for her in the next couple of weeks. ASSESSMENT: Postop check. PLAN: Plan to recheck in six weeks. :[id number] C: DOCUMENT: [id number] ICATOR Conversion, [facility] - 04/11/2001 12:01 AM CDT Phone Note signed by at 04/11/01 0701 Author: Imr Conversion Service: (none) Author Type: (none) Filed: 01/21/11 2341 Note Time: 04/11/012157 Status: Signed Senior Hardware Design Engineer: Winnie Conversion IMPRESSION: Rib pain/trauma-(adult)-triage guideline SUBJECTIVE: PATIENT COMPLAINS OF... -Pain * HOME PHONE: [phone] * is sharp and brief x1d c/o pain under L breast where that bone is. State she had pain x8 yesterday, state it lasts seconds. State the area is tender to touch. Deny trauma. Deny cough/uri. Deny n/v. Deny resp diff. State she checked her pulse and it was regular. Deny pain in her breast. Recently started swimming the breast stroke but has not swimmed in few days.; -Denies urgent or semi-urgent symptoms ALLERGIES/SENSITIVITIES... NKA 04/11/01 CURRENT MEDICATIONS... HRT 04/11/01 PERTINENT PAST HISTORY... Chronic Sinusitis; Varicose veins; 04/11/01 ASSESSMENT: Rib pain/trauma-(adult)-triage guideline DISPOSITION: HOME CARE PATIENT IS NOT ; PATIENT IS NOT NURSING; PLAN: RECOMMENDED THE FOLLOWING... Referenced guideline Rib pain/trauma-(adult)-triage guideline. -Apply ice pack to area -Avoid aggravating activities -Splint chest with pillow to cough or to take deep breaths -Take frequent deep breaths and cough to keep lungs clear -Take ASA or OTC anti-inflammatories as directed on package INFORMED PATIENT TO CALLBACK IF... Reasons to call back reviewed- caller verbalizes understanding of the need to call back for the following reasons: -Symptoms do not improve after 4 days of home management Sx change progress/heart sx. -Any other questions or concerns Call taken by BLANCA PEÑA RN [phone] 04/11/2001 06:46 AM ADDENDUM: Airam Mccall MD - 04/07/2001 12:01 AM CDT Progress Notes signed by Airam Reyes MD at 11/02/01 1321 Author: Airam Reyes MD Service: (none) Author Type: Physician Filed: 01/21/11 3313 Note Time: 04/07/01 0001 Status: Signed Senior Hardware Design Engineer: Airam Reyes MD (Physician) IMPRESSION: Postop check, endoscopic brow lift. SUBJECTIVE: One week endoscopic brow lift. Is a little concerned because the medial brow is a little elevated compared to lateral. OBJECTIVE: Has good brow movement. Parasagittal sutures removed. ASSESSMENT: Postop check, endoscopic brow lift. PLAN: Every other suture in the temporal incision was removed but these areas look a little bit weak yet and we will see her for removal of the rest of the sutures next week. MC:[id number] C: DOCUMENT: [id number] Merrill Bobby MD - 04/05/2001 12:01 AM CDT Progress Notes signed by Merrill Villavicencio MD at 04/12/013 Author: Merrill Villavicencio MD Service: (none) Author Type: Physician Filed: 01/21/11 6330 Note Time: 04/05/01 0001 Status: Signed Senior Hardware Design Engineer: Merrill Villavicencio MD (Physician) IMPRESSION: Rule out UTI. Yeast vaginitis. SUBJECTIVE: Chief complaint: Urinary infection, vaginal infection. HISTORY OF PRESENT ILLNESS: Uenes[age]fcq[age]gr[age]-old patient presents with possible urinary infection, with urgency, dysuria and frequency. No back pain, no . Also has a vaginal discharge and itching. Does have one partner who lives 2000 miles away, she said, but he also has two other partners, but she does not see him that often. Did have sex about a week ago and now is concerned about an STD, as she has a discharge and possible urinary infection. She has had urinary infections before, often needing antibiotics. She takes Macrobid prior to intercourse to help prevent them. MEDICATIONS: Hormone replacement. ALLERGIES: NONE. OBJECTIVE: T: 99.4 P: 67. R: 16. BP: 131/70. Exam shows an alert female, in no acute distress. No flank pain. Abdomen soft, nontender. Pelvic examination done with a nurse present showed curdish, white discharge, with yeast-like appearance in the external vulvar area. T&Y did confirm a yeast. Gen-Probe was pending. UA was done and showed 50 white cells, 10 red cells, trace blood, leukocyte esterase normal. She had a lot of epithelial cells and it may well come out contaminated, but we did do a culture. ASSESSMENT: 1. Rule out UTI. 2. Yeast vaginitis. PLAN: She normally uses Diflucan for yeast and can use that, 150 times one dose and repeat in a week if needed. Monistat over-the- counter in addition to that and Macrobid, 100 b.i.d., for seven days pending culture. If culture negative, can stop it. If Gen-Probe positive, treat accordingly for self and partner. RWJ:[id number] C: DOCUMENT: [id number] Jose David Ariza MD - 03/22/2001 12:01 AM CDT Progress Notes signed by Jose David Ariza MD at 06/15/01 2487 Author: Jose David Ariza MD Service: (none) Author Type: Physician Filed: 01/21/11 6874 Note Time: 03/22/01 0001 Status: Signed Senior Hardware Design Engineer: Jose David Ariza MD (Physician) IMPRESSION: Doing well. SUBJECTIVE: Ms. Sheikh returns for followup. I last saw her on 01/31/01. She is status post two Somnus radiofrequency submucosal ablations of the inferior turbinates. She has been on two rounds of antibiotics since our last visit. She is feeling much better now. OBJECTIVE: Physical exam shows the airways to be patent bilaterally. There is mild inferior turbinate hypertrophy on the left and none on the right. ASSESSMENT: Doing well. Questions answered. Instructions given. We will see her back on a p.r.n. basis. PLAN: See assessment. [facility]:[id number] C: DOCUMENT: [id number] Margot Motley MD - 03/18/2001 12:01 AM CDT Progress Notes signed by Margot Motley MD at 04/08/01 0918 Author: Margot Motley MD Service: (none) Author Type: Physician Filed: 01/21/11 7681 Note Time: 03/18/01 0001 Status: Signed Senior Hardware Design Engineer: Margot Motley MD (Physician) IMPRESSION: Preop for brow lift. External hemorrhoid. SUBJECTIVE: Chief complaint: Preop. A 55-year-old female here for preop prior to brow lift. A copy of her H&P is in the chart, significant for recent flare of hemorrhoids. She had had a history of internal hemorrhoid banding in the past, now has external hemorrhoid. Her only medications are Vivelle patch and Provera pills. SHE HAS NO ALLERGIES. OBJECTIVE: BP: 128/78. T: 97.6. Ht: 67 inches. Wt: 144-3/4 pounds. Exam is unremarkable, except for the cosmetically low eyebrows and a mildly inflamed, large, but nonthrombosed external hemorrhoid. ASSESSMENT: 1. Preop for brow lift. 2. External hemorrhoid. PLAN: She was cleared for surgery. Consult general surgery regarding the hemorrhoid. 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 SUBJECTIVE: Patient presents to clinic with concern that painful metatarsalgia for the last three years. She has undergone three pairs of orthotics at this current time which are accommodative and fit into her regular tennis shoes. These do not fit into her dress shoes. She is unable to go without shoes with the orthotics, as this makes it much more comfortable with increased activities. Usually, upon arising out of bed, this feels relatively pain-free for approximately one hour and then it occurs with every step. She has a pain to the forefoot with stinging sensation. This does get better with some rest. She has tried anti-inflammatories and icing. She is not pain-free in the current orthotics, but nonetheless it is making her much more comfortable. Denies any other complaints. NO KNOWN DRUG ALLERGIES. OBJECTIVE: 55-year-old female, healthy appearance, no acute distress. Pedal pulses are palpable bilaterally, distal neurologic sensation is grossly intact bilaterally. Range of motion of the ankle, rearfoot, midfoot and forefoot within normal limits without pain or crepitation. There is no erythema, edema, ulceration or open wounds noted. Manual muscle testing exam is 5/5 for dorsiflexors, plantar flexors, invertors and evertors, bilateral feet and ankles. She has a normal angle and base of gait with a slightly decreased medial arch height with weightbearing. She has a palpable tenderness to the area of the plantar second intermetatarsal space of the right foot. There is a positive fullness and pain with compression of this area. There is no Duong's sign evident today. There is pain to a lesser degree with palpation directly of the metatarsal head. She has recurrence of her orthotics, which are full-length Plastazote with an accommodative padding beneath this. These have Hurd's pads within them. 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 PLAN: We discussed treatment options and alternatives with patient. She was agreeable to undergo a cortisone injection. Therefore, after an alcohol and Betadine prep an injection of 1 cc Kenalog and 1 cc 0.5% Marcaine plain was infiltrated into the second intermetatarsal space of the right foot. Patient will monitor results and return to clinic in three weeks for followup. Also, she wished to obtain a pair of dress orthotics, and she was casted for these today. I will see her back as previously scheduled. CHS:[id number] C: DOCUMENT: [id number] Conversion, [facility] - 03/01/2001 12:01 AM CDT Phone Note signed by at 03/01/012038 Author: Winnie Conversion Service: (none) Author Type: (none) Filed: 01/21/11 8608 Note Time: 03/01/012157 Status: Signed Senior Hardware Design Engineer: Winnie Conversion IMPRESSION: Black/bloody stools-(adult)-triage guideline SUBJECTIVE: PATIENT COMPLAINS OF... Pt. * HOME PHONE: [phone] * calling to find out when Urgent Care opens in the morning. Said has been treating for hemmroids but is getting bigger and now has another one that is big. Hard to hear pt. as so much static on the phone. Took alexa godoy, , and called her back. Wants to know what should do as has been following all the cares and treatments and is worse. Has had normal bowel movements Saw a specialist out of system. ALLERGIES/SENSITIVITIES... NKA 03/01/01 CURRENT MEDICATIONS... vivelle HRT patch; cycrin days 1-10; nasonex nasal spray; Retin A.025% cream; Augmentin Bid for bronchitis; Proctofoam and zylocaine ointment for hemmriods. 03/01/01 PERTINENT PAST HISTORY... Chronic Sinusitis; Varicose veins; 03/01/01 ASSESSMENT: Black/bloody stools-(adult)-triage guideline DISPOSITION: NO DISPOSITION GIVEN PATIENT IS NOT ; PATIENT IS NOT NURSING; PLAN: RECOMMENDED THE FOLLOWING... Told pt. to it specialist to see what should be done for tonight. They may want to have her come in tonight. Call taken by HERMELINDA RAI 03/01/2001 08:26 PM ADDENDUM: Jose David Abbott MD - 01/31/2001 12:01 AM CDT Progress Notes signed by Jose David Ariza MD at 06/15/01 2102 Author: Jose David Ariza MD Service: (none) Author Type: Physician Filed: 01/21/11 5556 Note Time: 01/31/01 0001 Status: Signed Senior Hardware Design Engineer: Jose David Ariza MD (Physician) IMPRESSION: Doing well. SUBJECTIVE: Ms. Sheikh returns for followup. She is status post two applications of the Somnus radiofrequency submucosal ablation of the inferior turbinates. She states that she is doing very well, can breathe very well through her nose and no longer has much post nasal drip. In fact, she has had a couple of upper respiratory illnesses since I last saw her and she states she was able to tolerate these very well. OBJECTIVE: Physical exam shows inferior turbinates to be reduced in size. Nasal cavities are patent bilaterally. The mucosa is moist. ASSESSMENT: Doing well. We will see her back on a p.r.n. basis. PLAN: See assessment. [facility]:[id number] C: DOCUMENT: [id number] Ángel Hodgson MD - 01/17/2001 12:01 AM CDT Progress Notes signed by Ángel Hodgson MD at 06/18/017 Author: Ángel Hodgson MD Service: (none) Author Type: Physician Filed: 01/21/11 2211 Note Time: 01/17/01 0001 Status: Signed Senior Hardware Design Engineer: Ángel Hodgson MD (Physician) IMPRESSION: Sclerotherapy. SUBJECTIVE: Patient is seen in followup for varicose vein surgery. OBJECTIVE: Patient underwent sclerotherapy today for some remanent spider varicosities. She tolerated the procedure well. Compressive dressings were applied. ASSESSMENT: Sclerotherapy. PLAN: Follow up as needed. MTS:[id number] C: DOCUMENT: [id number] olomon Edmond - 12/16/2000 12:01 AM CST Progress Notes signed by Soolmon Duke at 12/27/00 0940 Author: Solomon Duke Service: (none) Author Type: Resource Filed: 01/21/11 2138 Note Time: 12/16/00 0001 Status: Signed Senior Hardware Design Engineer: Solomon Duke (Resource) IMPRESSION: Metatarsalgia and left heel spur. SUBJECTIVE: Quita is in today for new orthotics. Her referring doctor is Ned Townsend. Diagnosis was metatarsalgia and left heel spur. On talking to Quita, the shoes she brings in today are not adequate for the orthotics. 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 She forgot her shoes for the orthotics. Today I did instruct her on how to trim the forefoot. The orthotics appear to fit well. She will try them and let me know. If she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 Status: Signed Senior Hardware Design Engineer: Winnie Conversion IMPRESSION: Strep pharyngitis (adult)-nurse guidelines (draft) - TREATING PROVIDER: SHAMIKA GAN - PHARMACY: [phone] [facility] / * HOME PHONE: [phone] * [place] [facility] SUBJECTIVE: PATIENT COMPLAINS OF... Sore throat, positive culture for strep pharyngitis ALLERGIES/SENSITIVITIES... NKA 05/15/00 CURRENT MEDICATIONS... Vivelle .05 mg patch (hrt); Cycrin first 10 days of each month; Nasonex nasal spray; Sulindac 200 mg prn; 05/15/00 PERTINENT PAST HISTORY... Chronic Sinusitis; Varicose veins; 05/15/00 ASSESSMENT: Strep pharyngitis (adult)-nurse guidelines (draft) DISPOSITION: HOME CARE PATIENT IS NOT ; PATIENT IS NOT NURSING; PLAN: STANDING ORDERS IMPLEMENTED... Pen VK:500 mgm bid x 10 days (o) if > or = 50 lbs. RECOMMENDED THE FOLLOWING... Referenced guideline Strep pharyngitis (adult)-nurse guidelines (draft). Patient to be treated per C standing order. Reviewed information from handout for notifying patient of positive strep screen / patient did not have any questions re home cares. Patient information given per Pharyngitis nurse guidelines. INFORMED PATIENT TO CALLBACK IF... Caregiver to call back if: -No significant improvement after 48 hours of medication -Any other questions or concerns MISC COMMENTS... Rx called to pharmacist at approx. 11:10 a.m. today. Call taken by TERESITA FRITZ RN [phone] 05/15/2000 10:59 AM ADDENDUM: ICATOR Ángel Hodgson MD - 05/03/2000 12:01 AM CDT Progress Notes signed by Ángel Hodgson MD at 06/10/00 1000 Author: Ángel Hodgson MD Service: (none) Author Type: Physician Filed: 01/21/11 1759 Note Time: 05/03/00 0001 Status: Signed Senior Hardware Design Engineer: Ángel Hodgson MD (Physician) IMPRESSION: Well postoperative visit. SUBJECTIVE: Patient is seen in followup for varicose vein surgery on 04/30/2000. Patient is complaining of some nausea. OBJECTIVE: Her abdomen is soft and nontender. This is most likely related to her narcotic use for pain control. She will stop using her pain control at this point in time. Sutures were removed and replaced with benzoin and Steri-Strips. Her incisions are healing nicely. ASSESSMENT: Well postoperative visit. PLAN: Follow up as needed. MTS:[id number] C: DOCUMENT: [id number] T Margot Motley MD - 04/15/2000 12:01 AM CDT Progress Notes signed by Margot Motley MD at 05/10/00 1203 Author: Margot Motley MD Service: (none) Author Type: Physician Filed: 01/21/11 1734 Note Time: 04/15/00 0001 Status: Signed Senior Hardware Design Engineer: Margot Motley MD (Physician) IMPRESSION: Varicose veins. SUBJECTIVE: CHIEF COMPLAINT: Preop. OBJECTIVE: A 54-year-old female having surgery for left leg varicosities. Copy of H and P is in the chart. There are no contraindications to surgery. ASSESSMENT: Varicose veins. PLAN: Okayed for surgery. MDW:[id number] C: DOCUMENT: [id number] Conversion, [facility] - 03/24/2000 12:01 AM CDT Progress Notes signed by at 05/10/012157 Author: Winnie Conversion Service: (none) Author Type: (none) Filed: 01/21/11 1713 Note Time: 03/24/00 0001 Status: Signed Senior Hardware Design Engineer: Winnie Martinez IMPRESSION: Multiple musculoskeletal complaints currently quiescent. SUBJECTIVE: Ramona is doing fairly well overall. 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 She is followed for multiple musculoskeletal complaints. OBJECTIVE: Her neck pain is resolving fairly well. However, she had type a 63 page paper recently and was complaining of pain at the base of the right mastoid. There was some tenderness there but no radiation along the sternocleidomastoid. I told her to do some stretching exercises for this. She is wearing her night splints faithfully for her plantar fasciitis and this seems to be working well. Her biggest problem at this point is some tenderness over the third and fourth metatarsal heads on the plantar surface. There is no callous in the area. There is thin pad under the fourth metatarsal head. No evidence of a Hurd's neuroma. She is doing well as far as her trochanteric bursitis. She is having some intermittent pain at the base of her thumb but this has not reached a point where I think any intervention is necessary. ASSESSMENT: Multiple musculoskeletal complaints currently quiescent. PLAN: She is going to have a vein stripping done and I told her that her decreased activity will probably help the metatarsalgia. At this point we plan on seeing her back as needed. PRD:[id number] C: DOCUMENT: [id number] SCHEDULED RESOURCE: SON MALLOY MD ICATOR Conversion, [facility] - 03/13/2000 12:01 AM CDT Progress Notes signed by at 05/10/012155 Author: Winnie Martinez Service: (none) Author Type: (none) Filed: 01/21/11 1705 Note Time: 03/13/00 0001 Status: Signed Senior Hardware Design Engineer: Winnie Martinez IMPRESSION: Significant pharyngitis. SUBJECTIVE: The patient comes in today stating that she was seen, I believe, in Urgent Care on and at that time she was diagnosed with sinusitis and began on amoxicillin. She says however since then her throat has gotten more swollen and uncomfortable. She actually called Dr. Ariza's office yesterday and they prescribed Clindamycin over the phone but she feels like she really did not get to complete her history, therefore, she did not begin the Clindamycin but came in to Urgent Care for additional evaluation. She feels like her neck is getting swollen. Her cough is productive of yellowish sputum. She is having some chills and sweats but does not have a thermometer at home. She does not have a lot of nasal drainage and not a lot of cough. OBJECTIVE: Temperature 97.3. P 82. R 16. BP 125/75. She is in no evidence of distress but does have a minimally garbled voice. HEENT: TMs are clear. Conjunctivae is clear. Oropharynx: She has 2+ tonsillar enlargement with significant erythema and presence of an exudate almost to the extent of pseudomembranous formation although not quite to this point yet. She has significant anterior adenopathy which is nothing over a centimeter, tender, but freely mobile. No posterior adenopathy is appreciated. Lungs are clear to auscultation. Cardiac has regular rate and rhythm, no rubs. Rapid Strep is negative. ASSESSMENT: Significant pharyngitis. PLAN: The patient was given a shot of Solu-Medrol here. She had improvement in her symptoms. She was otherwise told to begin the Clindamycin that was prescribed by Dr. Ariza. She is to return should she persist in having a high fever, develop any voice changes, difficulty swallowing or breathing. SMS:[id number] C: DOCUMENT: [id number] SCHEDULED RESOURCE: LINSEY IRENE MD ICATOR Conversion, [facility] - 03/12/2000 12:01 AM CDT Phone Note signed by at 03/12/00 0342 Author: Winnie Conversion Service: (none) Author Type: (none) Filed: 01/21/11 1703 Note Time: 03/12/00 0001 Status: Signed Senior Hardware Design Engineer: Winnie Conversion IMPRESSION: Sore Throat-(Adult)-Nurse Guidelines - REFERRED PATIENT TO URGENT CARE AT [id number] [facility] * HOME PHONE: [phone] * SUBJECTIVE: PATIENT COMPLAINS OF... Sore throat > 24 hours without cough or cold, Patient calling was seen in and given Amoxicillin for sore throat and sinus infection, has been on Amoxicillin for 3 days and continues to c/o of sore throat and green discharge. Had called ENT and was given a Rx for Clindomycin but has not taken it because pharmacist told her that's not one of the drugs for strep throat. Recommended patient continue with Amoxicillin and go to .; -Currently on antibiotic ALLERGIES/SENSITIVITIES... NKA 08/13/99 CURRENT MEDICATIONS... Estrogen patch,nasonex nasal spray, Cycrin first 10 days of each [place] h,); Naprosyn bid; 08/13/99 PERTINENT PAST HISTORY... Chronic Sinusitis; Varicose veins; 08/13/99 ASSESSMENT: Sore Throat-(Adult)-Nurse Guidelines DISPOSITION: SEMI-URGENT OMITTED ASKING ABOUT ; OMITTED ASKING ABOUT NURSING; PLAN: RECOMMENDED THE FOLLOWING... Referenced guideline Sore Throat-(Adult)-Nurse Guidelines. Direct to Urgent Care if over the weekend. Patient information given per Sore Throat nurse guidelines. INFORMED PATIENT TO CALLBACK IF... Reasons to call back reviewed- caller verbalizes understanding of the need to call back for the following reasons: -Any other questions or concerns Call taken by SAKINA JIMENEZ RN [phone] 03/12/2000 06:39 PM ADDENDUM: <> 03/13/2000 08:11AM by RAMIN SPENCER RN [phone]: Patient calling back, still has sore throat. Would like message sent to that she is coming in to be seen. Tonsils swollen. ICATOR Stephan Malin MD - 03/10/2000 12:01 AM CDT Progress Notes signed by Stephan Malin MD at 04/17/00 6912 Author: Stephan Malin MD Service: (none) Author Type: Physician Filed: 01/21/11 2574 Note Time: 03/10/00 0001 Status: Signed Senior Hardware Design Engineer: Stephan Malin MD (Physician) IMPRESSION: Underlying allergic rhinitis and conjunctivitis with some sinusitis and pharyngitis. SUBJECTIVE: For two days the patient has had a bad sore throat. She has year round problems with using Nasonex spray. She has noted some redness, itching, and watering in her eyes as well. She had chills last night. 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 She is on hormone replacement therapy, nasal spray, and Tylenol. SHE HAS NO KNOWN DRUG ALLERGIES. OBJECTIVE: BP: 141/77 T: 98.1 P: 84 R: 16 The TMs are without erythema or fluid. Nose reveals some swelling, mild mucoid character. She is tender to palpate over the sinuses, and there is postnasal drainage with some mild erythema in the pharynx and a little exudate. Trachea is midline. There are some lymph nodes palpable in the anterior cervical chain, but not particularly tender. Lungs are clear to auscultation and percussion. Conjunctivae have some mild injection. ASSESSMENT: Underlying allergic rhinitis and conjunctivitis with some sinusitis and pharyngitis. PLAN: At this point with the chills and current tenderness over the sinuses, we are going to start amoxicillin 500 mg t.i.d., #30. Reviewed other symptomatic measures. We gave her a prescription for Claritin 10 mg, one q.h.s. for drainage and itchy, watery eyes, also some Naphcon-A ophthalmic solution 1 to 2 drops four times a day p.r.n. itchy, watery eyes. BOR:[id number] C: DOCUMENT: [id number] Ángel Hodgson MD - 01/19/2000 12:01 AM CDT Progress Notes signed by Ángel Hodgson MD at 08/27/00 1119 Author: Ángel Hodgson MD Service: (none) Author Type: Physician Filed: 01/21/11 1612 Note Time: 01/19/00 0001 Status: Signed Senior Hardware Design Engineer: Ángel Hodgson MD (Physician) IMPRESSION: VV SUBJECTIVE: Ramona Sheikh is in the office today to follow up with her varicose vein consultation. Since her last visit, she had an ultrasound. These results showed that her left greater saphenous vein was incompetent but that her deep system was competent and had no evidence of thrombosis. Patient is still having difficult symptoms, on that left lower extremity, with her varicosities, and we discussed support stockings; however, this has failed to relieve her symptoms. OBJECTIVE: N/A ASSESSMENT: N/A PLAN: The patient will consider varicose vein surgery, which would entail a left greater saphenous vein stripping and secondary varicose vein dissection. MTS:[id number] C: DOCUMENT: [id number] ICATOR Conversion, [facility] - 01/09/2000 12:01 AM CDT Phone Note signed by at 01/09/00 1121 Author: Imr Conversion Service: (none) Author Type: (none) Filed: 01/21/11 1604 Note Time: 01/09/00 0001 Status: Signed Senior Hardware Design Engineer: Imr Conversion IMPRESSION: c-dif TO: KADEN JESUS FROM: YOLI VILA [phone] 01/09/00 * PROVIDER MESSAGE: CHRISTINAI *NO * 11:21AM * INPUT NECESSARY * MESSAGE: Pat from [employer] calling with * HOME PHONE:[phone] * positive c-dif results * CONTACT PHONE:[phone] * SUBJECTIVE: * pt * ALLERGIES/SENSITIVITIES... NKA 08/13/99 CURRENT MEDICATIONS... Estrogen patch,nasonex nasal spray, Cycrin first 10 days of each savannah h,); Naprosyn bid; 08/13/99 PERTINENT PAST HISTORY... Chronic Sinusitis; Varicose veins; 08/13/99 WEIGHT: OMITTED ASKING ABOUT . OMITTED ASKING ABOUT NURSING. ASSESSMENT: c-dif PLAN: DISPOSITION: NO DISPOSITION GIVEN CALL BY YOLI VILA 01/09/2000 11:20AM [id number] ADDENDUM: <> 01/09/2000 02:42PM by PRAKASH NGUYEN: rx called in for flagyl 250 mg 1 po qid for 10 days #40. no drink with this medicine. pt informed. per dr. mckeon. Ranjit Vaughn - 01/06/2000 12:01 AM CDT Progress Notes signed by Ranjit Hernadez at 01/10/00 1159 Author: Ranjit Hernadez Service: (none) Author Type: Resource Filed: 01/21/11 1600 Note Time: 01/06/00 0001 Status: Signed Senior Hardware Design Engineer: Ranjit Hernadez (Resource) IMPRESSION: Diarrhea. SUBJECTIVE: CHIEF COMPLAINT: Diarrhea. This 54-year-old female presents with diarrhea since December 06. She was seen in Urgent Care on December 25. O and P and stool culture were negative. She was treated with three days of Levaquin. She is having about five bowel movements per day which she describes as loose and appearing like saw dust. She usually has to get up three times in the night for bowel movements. She has not noted any blood or mucous. She has had no change in her weight, no fevers. She gets some lower intestinal cramping but no abdominal or rectal pain. She tried a bland diet for several days which was not helpful. She continues to try to keep the diet somewhat bland. Appetite is normal. She is getting plenty of fluids. She had had a tendancy towards constipation and had been using bran more regularly over the last year which was helpful. She is having no nausea or vomiting. She was diagnosed with colitis about 20 years ago which lasted for about a week. She states that her work is demanding. 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 She has been experiencing a lot of stress, her mom is now living with her since November. The patient had a normal routine flexible sigmoidoscopy in October of this year. She does not consume any caffeine. She is a nonsmoker. MEDICATIONS: Estrogen, progesterone, nasonex. ALLERGIES: NONE. OBJECTIVE: BP: 130/82 Healthy appearing. Skin normal. Sclerae benign. Lungs are clear to auscultation. Cardiac, regular rate and rhythm, S1, S2 without murmur. Abdomen is soft. She does have tenderness throughout lower abdomen. No rebound or guarding, no masses or hepatosplenomegaly. ASSESSMENT: Diarrhea. PLAN: Will repeat stool culture and ova and parasites and also check for C. difficile and Giardia. Sed rate, TSH, electrolytes and hemoglobin are pending. Will contact with results. CC: MARGOT MOTLEY MD RT:[id number] C: DOCUMENT: [id number] Conversion, [facility] - 12/30/1999 12:01 AM CST Phone Note signed by at 12/30/99 9493 Author: [facility] Conversion Service: (none) Author Type: (none) Filed: 01/21/11 1554 Note Time: 12/30/99 0001 Status: Signed Senior Hardware Design Engineer: [facility] Conversion IMPRESSION: Request for lab results. SUBJECTIVE: PATIENT COMPLAINS OF... Pt * HOME PHONE: [phone] * calling for results of stool O&P from 12/26. Pt was seen in UC for 3 weeks of diarrhea 12/26. Started on medication for diarrhea. ALLERGIES/SENSITIVITIES... NKA 08/13/99 CURRENT MEDICATIONS... Estrogen patch,nasonex nasal spray, Cycrin first 10 days of each [place] h,); Naprosyn bid; 08/13/99 PERTINENT PAST HISTORY... Chronic Sinusitis; Varicose veins; 08/13/99 ASSESSMENT: Request for lab results. DISPOSITION: NO DISPOSITION GIVEN OMITTED ASKING ABOUT ; OMITTED ASKING ABOUT NURSING; PLAN: RECOMMENDED THE FOLLOWING... Reviewed negative stool cx results with caller, recommend she be seen on 01/01 if not improved by then. INFORMED PATIENT TO CALLBACK IF... Questions,concerns. Call taken by SONIA VALENTINE RN [phone] 12/30/1999 06:47 PM ADDENDUM: ICATOR Solomon Alexis MD - 12/26/1999 12:01 AM CST Progress Notes signed by Solomon Alexis MD at 01/17/00 1612 Author: Solomon Alexis MD Service: (none) Author Type: Physician Filed: 01/21/11 7901 Note Time: 12/26/99 0001 Status: Signed Senior Hardware Design Engineer: Solomon Alexis MD (Physician) IMPRESSION: Probable infectious diarrhea. SUBJECTIVE: Raomna is a 54-year-old female who comes to [facility] because of diarrhea ongoing for about two weeks. It has been occurring 3-5 times per day and up to six times per day. She usually has it once or two times in the middle of the night and it wakens her. She is able to drink fluids okay. She has had some nausea initially when this all started. It started on 12/11/99. 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 She was in [place] last week but the diarrhea started prior to that. She did eat some questionable chicken about three weeks ago that may have been undercooked. 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 There is no blood in the stool. MEDICATIONS: Estrogen patch. She tried Kaopectate yesterday and Pepto-Bismol today. ADVERSE DRUG REACTIONS: NONE. PAST MEDICAL HISTORY: Nil. OBJECTIVE: BP: 132/74 T: 97.1 P: 66 R: 18 She appears well, in no acute distress. Her color is good. ABDOMINAL EXAM: Is normal. Bowel sounds are active. ASSESSMENT: Probable infectious diarrhea. PLAN: Levaquin 500 mg one daily for three days. Imodium. Stool for O and P and culture will be done. Recheck if unimproved. MCKINLEY:[id number] C: DOCUMENT: [id number] T Ángel Hodgson MD - 12/22/1999 12:01 AM CST Progress Notes signed by Ángel Hodgson MD at 02/12/00 0947 Author: Ángel Hodgson MD Service: (none) Author Type: Physician Filed: 01/21/11 1546 Note Time: 12/22/99 0001 Status: Signed Senior Hardware Design Engineer: Ángel Hodgson MD (Physician) IMPRESSION: Symptomatic varicose veins. SUBJECTIVE: The patient is seen in followup for varicose veins. She is here for her results of her venous ultrasound. The patient has incompetency of the proximal left greater saphenous vein, but her deep system is competent with no evidence of deep venous thrombosis. OBJECTIVE: N/A ASSESSMENT: Symptomatic varicose veins. PLAN: The patient and I discussed the surgical procedure, and we have decided to proceed with surgery on 05/01/00. The surgery will entail a left greater saphenous vein stripping and a secondary varicose vein dissection. MTS:[id number] C: DOCUMENT: [id number] [facility], [facility] - 12/03/1999 12:01 AM CST Progress Notes signed by at 05/10/013 Author: Winnie Conversion Service: (none) Author Type: (none) Filed: 01/21/11 1529 Note Time: 12/03/99 0001 Status: Signed Senior Hardware Design Engineer: Winnie Martinez IMPRESSION: Multiple musculoskeletal complaints. SUBJECTIVE: Ramona is in today with multiple musculoskeletal complaints. She has been followed for bilateral trochanteric bursitis as well as a left fasciitis and a right metatarsalgia. In addition she is now complaining of pain at the base of her neck. She is also complaining of pain at the base of her left thumb. Also some forearm pain particularly on the left side. She is concerned about getting her yard cleaned up this Spring and wonders if she should be wearing any type of support on her right arm. She recently started a series of acupuncture treatments and said that this has helped several of her musculoskeletal complaints. OBJECTIVE: Exam today shows persistent tenderness over the trochanteric bursa bilaterally. However, hip range of motion is full. There is some mild tenderness over the plantar fascia insertion into the calcaneus on the left foot. Good foot range of motion. No Achilles tenderness or tightness. Mild tenderness in the second and third web spaces of the right foot. Sensation is grossly normal. She has some tenderness to palpation at the carpometacarpal joint of the left thumb. Minimal crepitus is present. Good range of motion. Insurance Adviser strength is adequate. Mild tenderness over the lateral epicondyle. Her cervical spine range of motion is minimally reduced. There is some muscular tenderness at the base of the neck. ASSESSMENT: Multiple musculoskeletal complaints. PLAN: I told her that as long as the acupuncture is working she should continue with this. She is having some mild symptoms with plantar fasciitis on the right and she has had good success with dorsiflexion and night splints will be provided for her on the right side. I told her that I did not think her left thumb problem warranted splinting at this point. Cervical spine problem can be treated at this point with some self massage as well as heat application and gentle stretching. She will followup in two to three months. PRD:[id number] C: DOCUMENT: [id number] SCHEDULED RESOURCE: SON MALLOY MD ICATOR Ángel Hodgson MD - 11/24/1999 12:01 AM CST Progress Notes signed by Ángel Hodgson MD at 02/12/00 0946 Author: Ángel Hodgson MD Service: (none) Author Type: Physician Filed: 01/21/11 1520 Note Time: 11/24/99 0001 Status: Signed Senior Hardware Design Engineer: Ángel Hodgson MD (Physician) IMPRESSION: Symptomatic left leg varicose veins. SUBJECTIVE: Referring doctor is Dr. Margot Motley. Patient is a 54-year-old woman had problems with varicosities for many years although recently it has become worse in the left leg. This currently seems to be problematic during her menstrual cycle, however, this is quite sporadic and long because of her menopausal state. She states that when she stands on her left leg for more than a couple of minutes that the veins distend out and become somewhat uncomfortable and she is currently wearing support stockings that she obtained in September and we discussed wearing these for another month to see if there is any benefit. OBJECTIVE: Her left leg on examination has palpable pedal pulses. She has some varicosities present along the medial calf and the distribution of the saphenous vein. There is clearly a bluish discoloration to the foot. This shows early signs of stasis dermatitis. She denies any thrombosis or bleeding events. Her right leg has some spider varicosities but no signs of true varicosities. ASSESSMENT: Symptomatic left leg varicose veins. PLAN: Patient to undergo ultrasound testing, to continue wearing support stockings and to followup with me in the next month. We will have to submit a prior authorization to [facility] for coverage of the surgery if her medical management is unsuccessful. MTS:[id number] C: DOCUMENT: [id number] Clifton Rasmussen MD - 11/14/1999 12:01 AM CST Progress Notes signed by Clifton Rasmussen MD at 11/17/99 1046 Author: Clifton Rasmussen MD Service: (none) Author Type: Physician Filed: 01/21/11 1512 Note Time: 11/14/99 0001 Status: Signed Senior Hardware Design Engineer: Clifton Rasmussen MD (Physician) IMPRESSION: MULTIPLE MUSCULOSKELETAL PAIN SUBJECTIVE: Ramona returns for a longer visit today to review her other complaints which include pain in her thighs, plantar fasciitis, neck pain as well as left heel spur. She tells me that the metatarsal pain that she has been experiencing for which she had been recently treated for acupuncture is a little better. She finds that she can walk her dog a little longer. 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 She thinks that her neck and shoulder discomfort that she is experiencing are due to stress at work and it can radiate into the right shoulder. Details of these complaints and the remainder of her history are as noted in her October 21 visit with me this year. OBJECTIVE: She has a prominent costal margin and scars are noted from her previous breast reduction and bladder surgery, bladder lift and section. Palpating about the thoracic area, she appears to be restricted in the right rib cage as compared to the left and she is tender in several points both anteriorly and posteriorly and these areas also follow the stomach and spleen as well as lung meridians. ASSESSMENT: 1. Multiple musculoskeletal complaints, probably myofascial neck and shoulder pain. 2. Probable metatarsalgia on the right and plantar fasciitis on the left. 3. Bilateral hip pain, probably trochanter bursitis due to decreased flexibility of her deep hip external rotators. PLAN: We proceeded on with acupuncture today and the following points were used bilaterally; SP6, SP9, ST36, and ST15, LU2, LU5, LI4 was also added along with CV2, 15, and GV20. These points were manipulated along the Yin meridian. I would like to have her followup with me in one week for another acupuncture session. MPR:[id number] C: DOCUMENT: [id number] ICATOR Aniyah Motley CCC-A - 10/20/1999 12:01 AM CST Progress Notes signed by ERIN Glover at 11/17/99 0823 Author: ERIN Glover Service: (none) Author Type: CERTIFICATE OF CLINICAL COMPETENCY IN AUDIOLOGY Filed: 01/21/11 1448 Note Time: 10/20/99 0001 Status: Signed Senior Hardware Design Engineer: ERIN Glover (M1A1 Tank Crewman) IMPRESSION: Bilateral, low-frequency, sensorineural hearing loss, worse in the left ear than the right. SUBJECTIVE: Ms. Sheikh was seen for hearing evaluation on referral from Dr. Margot Motley. Patient has not been aware of any progression in her long-term hearing loss or any significant communication handicap, but she was told early in the that she had Meniere's disease and a low-frequency hearing loss and was told that she should have it reevaluated annually. She has not had any followup until now. She does also have tinnitus which is probably constant and bilateral but is only noticeable when there is no significant background noise. It was my impression that the tinnitus is not bothersome to her at this point. She said she did have some dizziness many years ago but has had none recently. OBJECTIVE: Pure tone measurements on this date revealed a bilateral, low-frequency, sensorineural hearing loss, slightly worse in the left ear than the right. Speech information receptionist thresholds of 0 dB in the right ear and 5 dB in the left ear represent fair agreement with pure tone results, and speech recognition scores of 92% in the right ear and 96% in the left ear indicate that Ms. Sheikh understands speech well in quiet once voices are comfortably loud. ASSESSMENT: Because I have no previous results, I cannot make a comparison, but from Ms. Sheikh's description of her hearing loss, there probably has not been significant progression in her loss compared to the previous measurements. Since she has not consulted an complex manager for many years, I suggested that she have an appointment with one of the otolaryngologists to see if there is any recent advance in treatment of Meniere's disease. She is seeing Dr. Jose David Ariza for sinus problems and is due to see him again in the summer, so I suggested that she consult him at her next appointment regarding her Meniere's disease as well as the sinus problem. She seems satisfied with that course of action. She probably is not a candidate for amplification at this time since amplification of the low frequencies would bring in more background noise and might not give her significantly better understanding. As long as she is functioning fairly well in communication situations at this time, I am not recommending any further intervention relative to audiological management. I would recommend, however, that she have her hearing reevaluated in two years to monitor the stability, and I will send her a tickler accordingly. PLAN: 1. ENT consultation. 2. Reevaluation of hearing in Audiology in two years. MARGOT MOTLEY MD ERW:[id number] C: DOCUMENT: [id number] Ángel Bolden MD - 10/20/1999 12:01 AM CST Progress Notes signed by Ángel Farias MD at 10/30/99 1128 Author: Ángel Farias MD Service: (none) Author Type: Physician Filed: 01/21/11 1448 Note Time: 10/20/99 0001 Status: Signed Senior Hardware Design Engineer: Ángel Farias MD (Physician) IMPRESSION: Normal flexible sigmoidoscopy examination. SUBJECTIVE: Patient referred for routine flexible sigmoidoscopy examination. She reports no problems. OBJECTIVE: Digital rectal exam was normal. Flexible sigmoidoscopy examination, including retroversion, was performed to 60 cm. No abnormalities were seen. ASSESSMENT: Normal flexible sigmoidoscopy examination. PLAN: Patient should continue to have routine screening consistent with her age and current guidelines. ML:[id number] C: DOCUMENT: [id number] Clifton Pink MD - 10/20/1999 12:01 AM CST Progress Notes signed by Clifton Rasmussen MD at 11/07/99 1200 Author: Clifton Rasmussen MD Service: (none) Author Type: Physician Filed: 01/21/11 1448 Note Time: 10/20/992157 Status: Signed Senior Hardware Design Engineer: Clifton Rasmussen MD (Physician) IMPRESSION: Right metatarsalgia. SUBJECTIVE: CHIEF COMPLAINT: Right metatarsalgia. HISTORY OF PRESENT ILLNESS: Ms. Shekih is a 54-year-old patient seen in consultation by Dr. Motley for acupuncture. However, at this visit, she also mentions bursitis of both hips, plantar fasciitis, and carpal tunnel-like symptoms. She has had metatarsalgia for ten years. Given the time of this appointment, we are unable to address her other problems. However, she is not sure how these problems started, but she does have a history of back pain and has injured her back in 1972, 1983, and 1987. She tells me that the pain is intermittent, and her pain in the foot is not as bad since she is not working today. The pain is between her second and third right toes. She has been to an copy editor and dietitian research, but she continues to have these problems, especially with running, standing, and walking. She did go to physical therapy for her metatarsalgia. The only medication she is on is naproxen, and she does not have any drug allergies. She is otherwise healthy, but she has had a section, bladder lift, and breast reduction in the past. FAMILY HISTORY: Her mother had a knee replacement, but she does not know of any rheumatoid arthritis or spine conditions. 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 She does not smoke or drink alcohol or drink caffeine, and she tries to regularly exercise three to five times per week by swimming, walking, and doing exercycle. RADIOGRAPHIC STUDIES: She has had spine x-rays, and unfortunately they are unavailable for my review. REVIEW OF SYSTEMS: She does not have any constitutional complaints, no fever, weight loss, depression, paralysis, or swelling of her other joints, no fever, night pain, or headaches. She has not had any chiropractic treatments or acupuncture for her metatarsalgia. OBJECTIVE: On physical examination, she is in no acute distress. She appears healthy. Her foot was examined, and there is no atrophy, dystrophic changes, erythema, or edema. Compression of the second and third metatarsals causes some discomfort, but she had otherwise good motion of her metatarsophalangeal joints. There are no dystrophic changes noted. There are no color or skin changes or temperature changes of the foot. She has good pulses. Her gait was observed, and there is no antalgia, ataxia, or footdrop. ASSESSMENT: Right metatarsalgia. PLAN: She is appropriate for acupuncture. However, with her other complaints, I would like to address these further, and another appointment will be scheduled to have these addressed, given that she was scheduled for an acupuncture consultation only. She will be scheduled for acupuncture this Wednesday at 7:15 a.m. to fit in her schedule. CC: MARGOT MOTLEY MD MPR:[id number] C: DOCUMENT: [id number] ICATOR Margot Motley MD - 10/16/1999 12:01 AM CST Progress Notes signed by Margot Motley MD at 10/31/99 1242 Author: Margot Motley MD Service: (none) Author Type: Physician Filed: 01/21/11 1445 Note Time: 10/16/99 0001 Status: Signed Senior Hardware Design Engineer: Margot Motley MD (Physician) IMPRESSION: Pap smear. Varicose veins. Need for tuberculosis testing. SUBJECTIVE: CHIEF COMPLAINT: Pap smear. The patient is here to complete her physical from 09/22/99. At that point, she had her period. She notes that she had frequent Pap smears and colposcopies in the because of exposure. It turned out it was not diethylstilbestrol that she was exposed to, but to something called Antiton S which was made by [employer]. The patient's colposcopies were all normal. 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 She brings in normal colposcopy results from 1971. She also had her OB records sent from more recent years and those are included in the chart. Other concerns are that she has some varicose veins in the leg, and she is wondering if she could have these removed. She thinks it is primarily a cosmetic problem at this point and is not causing her any severe pain. OBJECTIVE: BP: 118/76 Pelvic exam shows normal external female genitalia, perineum and urethra. Her cervix appears normal. Pap smear is done. Vaginal exam is normal. Bimanual reveals a well-suspended bladder. Uterus and adnexa benign. Extremities: She does have some palpable varicosities. These appear larger than merely spider veins. Discussed with her that I think injection would take care of this. She would like to pursue whatever it would take for removal. Will check ultrasound. ASSESSMENT: 1. Pap smear. 2. Varicose veins. 3. Need for tuberculosis testing. PLAN: The patient will come back for TB testing. She needs this for work, but as today is she will not be able to have it read on the weekend, so she will come back on a different day of the week for that. Will check venous insufficiency ultrasound of the left leg and have her see the vascular surgeon to discuss options for varicose veins. Will attempt to decrease her Antiton S to see if this poses any danger to her now. MDW:[id number] C: DOCUMENT: [id number] Solomon Shipley - 10/02/1999 12:01 AM CST Progress Notes signed by Solomon Duke at 10/10/99 5556 Author: Solomon Duke Service: (none) Author Type: Resource Filed: 01/21/11 1431 Note Time: 10/02/99 0001 Status: Signed Senior Hardware Design Engineer: Solomon Duke (Resource) IMPRESSION: Heel spur left heel and metatarsalgia. SUBJECTIVE: Ramona is in today for placement of metatarsal pads in her orthotics. OBJECTIVE: Today, metatarsal pads are placed just proximal to the metatarsal heads in both orthotics in the same area of her past orthotics. She states they are comfortable. ASSESSMENT: Heel spur left heel and metatarsalgia. PLAN: She will try them and let us know how she is doing. If she should need any help with the orthotics, she will contact us for that. SAM:[id number] C: DOCUMENT: [id number] NNA Martinez [facility] - 09/23/1999 12:01 AM CST Progress Notes signed by at 05/10/01 4550 Author: Winnie Martinez Service: (none) Author Type: (none) Filed: 01/21/11 1423 Note Time: 09/23/99 0001 Status: Signed Senior Hardware Design Engineer: Winnie Martinez IMPRESSION: Trochanteric bursitis. SUBJECTIVE: Ramona got a little bit of relief from her most recent hip injection. She is still bothered by fairly sharp pain over the left trochanteric bursa. The right hip is doing well. Her heels are doing very well. She is still having some problems with metatarsalgia on the right foot but she is going to be seeing the copy editor today to make some adjustments in her orthotics. OBJECTIVE: Exam of her left hip shows full range of motion but marked tenderness directly over the trochanteric bursa. Good resisted strength. ASSESSMENT: Trochanteric bursitis. PLAN: I told her that it is too soon to do a third injection but I want her to continue using her Naprosyn and doing some local heat application but I have strongly urged her not to take a heating pad to bed. Will recheck in one month. Corrected Copy: 03/03/00 [facility] PRD:[id number] C: DOCUMENT: [id number] RESOURCE: SON MALLOY MD Solomon Shipley - 09/23/1999 12:01 AM CST Progress Notes signed by Solomon Duke at 10/08/99 1504 Author: Solomon Duke Service: (none) Author Type: Resource Filed: 01/21/11 1428 Note Time: 09/23/99 0001 Status: Signed Senior Hardware Design Engineer: Solomon Duke (Resource) IMPRESSION: Orthotic fitting. SUBJECTIVE: Ramona is in today for a fitting of these new orthotics. The orthotics were made for her several months ago and made out of Ann fajardo and did not hold up well. Therefore, we are replacing her orthotics at no charge today. Her new orthotics are composed of Ucocork, Poron, and Plastizote. She will try to let me know how she is doing. If she should have any problems, she will contact me for adjustment or revision. OBJECTIVE: N/A ASSESSMENT: Orthotic fitting. PLAN: N/A SAM:[id number] C: DOCUMENT: [id number] ICATOR Margot Motley MD - 09/22/1999 12:01 AM CST Progress Notes signed by Margot Motley MD at 10/31/99 1236 Author: Margot Motley MD Service: (none) Author Type: Physician Filed: 01/21/11 1421 Note Time: 09/22/99 0001 Status: Signed Senior Hardware Design Engineer: Margot Motley MD (Physician) IMPRESSION: Health maintenance. History of Meniere' disease. Perimenopause. SUBJECTIVE: 53-year-old female here for a routine physical. Current concerns. 1. She has a spot on her thumbnail that splints frequently. 2. She makes a note that she had multiple colposcopes done in the 70s and 80s because at that point she thought she might have had in utero FELICIA exposure. Subsequently learned that she did not have FELICIA exposure in utero and has not needed any repeat colposcopes. They had all been normal and her paps have all been normal. She has been seeing FITTINGS FINISHER for paps and pelvics, but may be transferring to me. Next, she notes that parents both had rectal polyps, no cancer found. She has not had a screening sigmoidoscopy. She did have a paternal uncle and a paternal aunt with rectal cancer. Last, she notes that she has to have bran or prunes daily in order to avoid constipation. As long as she eats a high fiber diet, she has no problem. PAST MEDICAL HISTORY: ALLERGIES: NONE. CURRENT MEDICATIONS: Nasonex, estrogen patch 0.05, progesterone 10 mg a day for 10 days out of the month and Naprosyn b.i.d. for bursitis. Major diagnoses include plantar fascitis, nasal congestion, Meniere's. She has had for surgeries, a breast reduction and a laparoscopic Birch bladder repair, and a . FAMILY HISTORY: Father at 79 of CHF. Mother is alive and well at 82. Has arthritis and some osteoporosis. No fractures. SOCIAL HISTORY: She is . Lives alone. Her son is in college. 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 She has never smoked. Does not abuse alcohol. REVIEW OF SYSTEMS: She had steroid injection in the trochanteric bursa a few weeks ago, which has helped, but she is still having a little of pain. She has a followup appointment scheduled for that tomorrow. Her feet continue to be mildly painful. She still has some metatarsalgia. Has orthotics, which are somewhat helpful. She wonders is acupuncture would be at all helpful for this and she is feeling quite anxious to be able to get back to walking, which she has not been able to do. She has tinnitus and some hearing loss with the Meniere's. She is not sure if she is losing more hearing. Has not had a hearing test in many years. She has occasional hemorrhoids, but otherwise no gastrointestinal complaints. Complete review of systems otherwise negative. See adult medical history form dated 08/25/99. Her last tetanus was in . OBJECTIVE: BP1: 126/74. Ht: 67 inches. Wt: 187. Healthy appearing female. No acute distress. Her pupils are equal and reactive. Sclerae, conjunctivae benign. TMs and EACs normal. Sinuses are nontender. Nares, slightly boggy, but patent airways. Pharynx is benign. NECK: Supple. No nodes. Thyroid is normal. Lungs are clear. No respiratory distress or wheezing. HEART: Regular rate, S1, S2. BREASTS: No masses, discharge, or axillary adenopathy. Well healed surgical scars from mammoplasty. ABDOMEN: Soft, nontender. No hepatosplenomegaly or masses. Pelvic is deferred due to menses. EXTREMITIES: No edema. SKIN: No suspicious lesions. ORTHOPEDIC: Has some tenderness over the bursa. Has metatarsal tenderness. Gait is normal. NEUROLOGIC: Grossly intact. ASSESSMENT: 1. Health maintenance. 2. History of Meniere' disease. 3. Perimenopause. PLAN: Check cholesterol fractionation, glucose. Hearing test at audiology. PPD. Dt. Rehab medicine to eval for possible acupuncture for the foot pain. Routine sigmoidoscopy. She will followup visit with me for a Pap smear. At this point, she would like to discuss hormone replacement that was started for heavy bleeding. The urologist suggested at the time of her Birch procedure that she might need a hysterectomy and she is not sure if she has any need for that. MDW:[id number] C: DOCUMENT: [id number] ICATOR [facility] - 09/09/1999 12:01 AM CST Progress Notes signed by at 05/10/01 0463 Author: Winnie Martinez Service: (none) Author Type: (none) Filed: 01/21/11 1407 Note Time: 09/09/99 0001 Status: Signed Senior Hardware Design Engineer: Winnie Martinez IMPRESSION: Bilateral trochanteric bursitis. SUBJECTIVE: Ramona is in for follow up of bilateral trochanteric bursitis. She said she had about two weeks of relief from her most recent injection in her left hip. However, both hips are giving her problems now. OBJECTIVE: On exam she has full range of motion of the hips with no pain. However, she is distinctly tender over the trochanteric region bilaterally. No redness or warmth. ASSESSMENT: Bilateral trochanteric bursitis. PLAN: Both trochanteric bursa were injected with a mixture of 4 cc of lidocaine and 1 cc of Aristospan. She will follow up as needed. PRD:[id number] C: DOCUMENT: [id number] SCHEDULED RESOURCE: SON MALLOY MD Solomon Shipley - 08/21/1999 12:01 AM CST Progress Notes signed by Solomon Duke at 09/16/99 1219 Author: Solomon Duke Service: (none) Author Type: Resource Filed: 01/21/11 1343 Note Time: 08/21/99 0001 Status: Signed Senior Hardware Design Engineer: Solomon Duke (Resource) IMPRESSION: Metatarsalgia and heel spur, left heel. SUBJECTIVE: Ramona is in today for another adjustment. She has been in several times. We have adjusted the metatarsal pads forward and back. She continues to complain of discomfort third metatarsal head. The orthotics she has at the present time are made out of the Burkle cord and is quite packed. I explained to Ramona that we would do this final adjustment to see if her foot feels better. If it does feel better, we will make a new orthotic at no charge out of [employer] cork, Poron, and Plastazote. This may work better for her and possibly will hold up better also. She is agreeable with this. Today, the metatarsal pad on the left orthotic was moved forward slightly. Once again, she states it feels better initially. We will see after several days whether it continues to help her. I instructed Ramona to let me know how she is doing. If this does not work well she should drop off her casts for the new orthotics. The orthotics will be done at no charge. OBJECTIVE: Please see above. ASSESSMENT: Metatarsalgia and heel spur, left heel. PLAN: Please see above. CC: SAM:[id number] C: DOCUMENT: [id number] ICATOR Conversion, [facility] - 08/14/1999 12:01 AM CST Progress Notes signed by at 05/10/01 5189 Author: Winnie Conversion Service: (none) Author Type: (none) Filed: 01/21/11 1346 Note Time: 08/14/99 0001 Status: Signed Senior Hardware Design Engineer: Winnie Martinez IMPRESSION: Improved inferior turbinate hypertrophy on Nasonex. SUBJECTIVE: Ms. Sheikh returns for follow up of her inferior turbinate hypertrophy and nasal congestion. I did place her on Nasonex when I saw her last and she states that she was doing very well for approximately three weeks, until she developed an upper respiratory illness. She has been on antibiotics for this and she is getting better. OBJECTIVE: Physical exam shows that there continues to be inferior turbinate hypertrophy, although much less than when I saw her before. There is no lateral nasal wall purulence. ASSESSMENT: Improved inferior turbinate hypertrophy on Nasonex. PLAN: I would like her to continue with this. We talked about the fact that this can be used for a cook fast food basis and I did write her a prescription for such. She will contact me if she has any difficulties. [facility]:[id number] C: DOCUMENT: [id number] SCHEDULED RESOURCE: JOSE DAVID ARIZA MD ICATOR Conversion, [facility] - 08/13/1999 12:01 AM CST Phone Note signed by at 08/13/992036 Author: [facility] Conversion Service: (none) Author Type: (none) Filed: 01/21/11 1340 Note Time: 08/13/99 0001 Status: Signed Senior Hardware Design Engineer: Winnie Conversion IMPRESSION: Diarrhea-(adult)-nurse guidelines - TREATING PROVIDER: WU CANELA SUBJECTIVE: * HOME PHONE: [phone] * PATIENT COMPLAINS OF... * WORK PHONE: [phone] * Diarrhea Pt. calling with concern aobut cramping and diarrhea after eating raisons and dried cranberries-and walnut oil--states feels weak but sx seemed to have resolved --will callback if sx worsen; -Mild cramping relieved by bowel movements -Symptoms less than 72 hours -Denies urgent or semi-urgent symptoms ALLERGIES/SENSITIVITIES... NKA 08/13/99 CURRENT MEDICATIONS... Estrogen patch,nasonex nasal spray, Cycrin first 10 days of each savannah h,); Naprosyn bid; 08/13/99 PERTINENT PAST HISTORY... Chronic Sinusitis; Varicose veins; 08/13/99 ASSESSMENT: Diarrhea-(adult)-nurse guidelines DISPOSITION: HOME CARE PATIENT IS NOT ; PATIENT IS NOT NURSING; PLAN: RECOMMENDED THE FOLLOWING... Referenced guideline Diarrhea-(adult)-nurse guidelines. -Rest as needed -Drink only room temperature, clear liquids -If too nauseated to drink fluids use ice chips -Avoid alcohol, smoking, caffeine, milk, and dairy products -Rest the bowel if the stomach feels upset or crampy -If hungry, and wanting to eat, choose foods that are starchy, not spicy and easily digested -Avoid foods that are hard to digest until diarrhea has resolved Patient information given per Diarrhea nurse guideline. INFORMED PATIENT TO CALLBACK IF... Reasons to call back reviewed- caller verbalizes understanding of the need to call back for the following reasons: -Symptoms persist or progress -Any other questions or concerns Call taken by MARGOT ARVIZU RN [phone] 08/13/1999 08:34 PM ADDENDUM: ICATOR Winnie Martinez - 08/12/1999 12:01 AM CST Progress Notes signed by at 05/10/01 6154 Author: Winnie Conversion Service: (none) Author Type: (none) Filed: 01/21/11 1339 Note Time: 08/12/99 0001 Status: Signed Senior Hardware Design Engineer: Winnie Martinez IMPRESSION: Plantar fasciitis. Metatarsalgia, right foot. Bilateral trochanteric bursitis. 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 Townsend several months ago for left plantar fasciitis. I had injected her heel at that time and she got very substantial relief. She is now having similar symptoms on the right. In addition, she is bothered by bilateral trochanteric bursitis. She also has a problem with some metatarsalgia and she has had some recent adjustments made to her orthotics with a metatarsal bar added. She said it is still somewhat prominent and does not feel comfortable. OBJECTIVE: Exam of her right foot shows normal subtalar motion. Skin is in good condition. She is tender over the plantar fascia insertion into the calcaneal tuberosity. There is minimal tenderness directly under the plantar surface of the tuberosity. She has diffuse tenderness over the metatarsal heads of 2, 3, 4, and 5. However, there is no evidence of plantar keratoses. Sensation is normal. Testing for Hrud's neuroma is negative. ASSESSMENT: 1. Plantar fasciitis. 2. Metatarsalgia, right foot. 3. Bilateral trochanteric bursitis. PLAN: Her plantar fasciitis symptoms do not warrant injection today, but in the past she has gotten some good benefit from night splints on her left side and so I am going to give her a slip to pharmacy picking technician a night splint for her right foot. I also injected her left trochanteric bursa today. She was recently started on Sulindac and we will see how she responds to this. Recheck in 4 weeks. PRD:[id number] C: DOCUMENT: [id number] SCHEDULED RESOURCE: SON MALLOY MD ICATOR Danish Woods MD - 08/07/1999 12:01 AM CST Progress Notes signed by Danish Woods MD at 08/13/99 1013 Author: Danish Woods MD Service: (none) Author Type: Physician Filed: 01/21/11 1334 Note Time: 08/07/99 0001 Status: Signed Senior Hardware Design Engineer: Danish Woods MD (Physician) IMPRESSION: Upper respiratory infection, possible sinusitis. Myalgias, legs and low back. SUBJECTIVE: The patient is a 53-year-old female here with two concerns. First of all she has had problems with discomfort in the area of the hips since May, which has been pain in the buttocks and the muscles of the thigh and perhaps the low back as that is mentioned on her notes from previous visits, although she does not recall that that was a big problem. She has been on some anti-inflammatories that have not seemed to make a big difference. The discomfort now seems to localize in an area where she is pointing at the greater trochanter. The left side seems to be bothering her more than the right at this point. Last night, she noted a little tenderness in the left forearm as well. Nothing that she can think of that set this off. The second concern is that over the past week, she has been congested. Last night, she had a fever and some greenish-yellow drainage from the nares. She is on estrogen, progesterone, Claritin, Naprosyn, ibuprofen and Tylenol. NO ALLERGIES. OBJECTIVE: BP: 145/88. P: 84. R: 20. T: 98.1. The tympanic membranes are clear. There is some tenderness over the left maxillary sinus. Throat is unremarkable. Neck is supple. Lungs are clear. Exam of the legs is remarkable for some sensitivity on palpation over the musculature of the upper thighs bilaterally. Greater trochanter does not necessarily localize this to be the source of her pain. She has full range of motion of the hips. Abduction and adduction both passively and actively against resistance do not elicit any discomfort. The low back is nontender on palpation. The forearm shows some slight tenderness at the origination of the extensor tendon of the forearm. Use of the wrist against resistance does not elicit more pain. ASSESSMENT: 1. Upper respiratory infection, possible sinusitis. Trial of amoxicillin 500 three times a day, if improvement in two to three days should finish the 10-day course. She is planning to be flying tomorrow and will be pushing fluids and using Afrin. 2. Myalgias, legs and low back. Etiology unclear, but she is being evaluated by her primary physician. We will try her on some Clinoril to see if that is of any more benefit than what she has been using, and she will maintain her scheduled appointment. PLAN: See assessment. CC: [id number] C: DOCUMENT: [id number] ICATOR Conversion, [facility] - 08/01/1999 12:01 AM CDT Phone Note signed by Margot Motley MD at 08/07/99 6527 Author: Winnie Conversion Service: (none) Author Type: (none) Filed: 01/21/11 9034 Note Time: 08/01/99 0001 Status: Signed Senior Hardware Design Engineer: Winnie Martinez IMPRESSION: Reclarification of support stockings TO: MARGOT MOTLEY FROM: SOHA WILCOX RN [phone] * PROVIDER MESSAGE: ROUTINE * 08/01/1999 10:07AM * *WITHIN 4 HOURS * MESSAGE: Patient will check with * HOME PHONE: [phone] * home care products later today. * WORK PHONE: [phone] * No need to call her. * CONTACT PHONE: [phone] * SUBJECTIVE: * CALL PATIENT IF PROBLEM * CHIEF CONCERN... Patient calling; she took rx from Dr Motley to home care products at [facility]. They need rx rewritten or called to home products. It should say: Compression stockings, like [employer]; 20-30 mmh; one knee hi, one thigh hi and one panty hose. She would like this called today. ALLERGIES/SENSITIVITIES... NKA 08/01/99 CURRENT MEDICATIONS... Estrogen patch,nasonex nasal spray, Cycrin first 10 days of each month,); Naprosyn bid; 08/01/99 PERTINENT PAST HISTORY... Chronic Sinusitis; Varicose veins; 08/01/99 WEIGHT: Not Available OMITTED ASKING ABOUT ; OMITTED ASKING ABOUT NURSING; ASSESSMENT: Reclarification of support stockings PLAN: DISPOSITION: NO DISPOSITION GIVEN Call taken by SOHA WILCOX RN [phone] 08/01/1999 10:00 AM ADDENDUM: <> 08/01/1999 11:18AM by UYEN [employer]ER: per dr motley. Hard copy of new rx written as pt directed taken to [facility] ICATOR Margot Motley MD - 07/28/1999 12:01 AM CDT Progress Notes signed by Margot Motley MD at 08/07/99 1241 Author: Margot Motley MD Service: (none) Author Type: Physician Filed: 01/21/11 1323 Note Time: 07/28/99 0001 Status: Signed Senior Hardware Design Engineer: Margot Motley MD (Physician) IMPRESSION: Leg pain, suspect mechanical low back pain with some iliotibial band dysfunction. SUBJECTIVE: CHIEF COMPLAINT: Leg pain. This 53-year-old female has had about a two month history of bilateral leg pain. Initially was worse on the right and now is affecting both sides. On the right side it starts in the low lumbar area, radiates to the lateral hip and to the front of the knee. On the left side it is primarily in the hip and knee. At this point it is painful to sleep on either side. If she rolls onto the side at night she will wake up with pain. Ibuprofen is not helping at this point. She was seen in Urgent Care, given Tylenol #3 and Valium. She did not start the Valium, but has been using the Tylenol #3 prn. She is doing stretches she learned last year in Physical Therapy. She has some pain in the right great toe, but that may be related to her ongoing foot problems. There is no calf pain, a minor sensation of numbness at the left anterior knee. No real weakness. No bladder or bowel symptoms. It is worse with lying down and sleeping on either side. It is hard to sit for a long time, two or three hours. It is better when she is moving. Secondly, she notes that she has some significant varicose veins which are mildly painful if she is on them for a long time and wonders if she could get support stockings. OBJECTIVE: She has good range of motion of the back. She has no palpable muscle spasm. She does have sacroiliac joint tenderness, especially on the right. She has tenderness over both trochanteric bursas. Good range of motion of the hips without any tenderness elicited. Her reflexes are 2+ and equal at knees and ankles and strength is normal in the foot. ASSESSMENT: Leg pain, suspect mechanical low back pain with some iliotibial band dysfunction. PLAN: Physical Therapy is already set up for next week. Naprosyn 500 mg b.i.d. with food. She is incidentally given the flu shot today. Given a prescription for thigh-high Rocío stockings due to the varicosities which are up to about mid thigh. If she is not improving with a couple weeks of Physical Therapy, may need an imaging study. FAMILIA:[id number] C: DOCUMENT: [id number] Solomon Shipley - 07/25/1999 12:01 AM CDT Progress Notes signed by Solomon Duke at 08/25/99 0903 Author: Solomon Duke Service: (none) Author Type: Resource Filed: 01/21/11 1321 Note Time: 07/25/99 0001 Status: Signed Senior Hardware Design Engineer: Solomon Duke (Resource) IMPRESSION: Metatarsalgia and heel spur left heel. SUBJECTIVE: Quita is in today for an adjustment of her orthotics. She has been doing quite well but recently states that she is having slight discomfort in the area of the third and fourth metatarsal head of the right foot. OBJECTIVE: The orthotic itself may be placed too far proximal. We did move it up slightly. She states this did relieve some of the discomfort. ASSESSMENT: Metatarsalgia and heel spur left heel. PLAN: I told Quita to try this for several days and let me know how she is doing. If she needs adjustment, she can contact me again. Hopefully this will solve her problem. CC: SAM:[id number] C: DOCUMENT: [id number] Margot Daley MD - 07/21/1999 12:01 AM CDT Progress Notes signed by Margot Motley MD at 06/28/00 1149 Author: Margot Motley MD Service: (none) Author Type: Physician Filed: 01/21/11 1316 Note Time: 07/21/99 0001 Status: Signed Senior Hardware Design Engineer: Margot Motley MD (Physician) IMPRESSION: Viral pharyngitis. SUBJECTIVE: CHIEF COMPLAINT: Sore throat. 53-year-old female with a five day history of sore throat. It is deep down in her throat and it hurts to swallow and talk. No real stuffy nose although she is already on Claritin and Nasonex for allergies. No real cough. No fevers, although she is taking ibuprofen for the pain. 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 CURRENT MEDICATIONS: Estrogen patch, progesterone, Flonase, Tavist D alternating with Claritin D and Accutane. ALLERGIES: No known allergies. OBJECTIVE: Patient is in no acute distress. Voice is normal. Temperature is 98.2. TMs normal. _EAC's____ normal. Pharynx red, no exudate. Neck supple. Minimal adenopathy. Lungs clear. Rapid strep is negative. ASSESSMENT: Viral pharyngitis. PLAN: Support measures were discussed. Will notify her if 24 hour strep culture is positive. kjl Conversion, [facility] - 07/18/1999 12:01 AM CDT Phone Note signed by at 07/18/99 4760 Author: [facility] Conversion Service: (none) Author Type: (none) Filed: 01/21/11 1314 Note Time: 07/18/99 0001 Status: Signed Senior Hardware Design Engineer: [facility] Conversion IMPRESSION: Sore Throat-(Adult)-Nurse Guidelines TO: MARGOT MOTLEY FROM: MICHAEL SHETTY RN [phone] * PROVIDER MESSAGE: APPT * 07/18/1999 04:52PM * NEEDED * MESSAGE: See notes. Needs appoint. * HOME PHONE: [phone] * SUBJECTIVE: * WORK PHONE: [phone] * CHIEF CONCERN... Sore throat, * CONTACT PHONE: [phone] * sudden onset, denies cough or cold Pt has had a sorethroat for a day.She also has a kulkarni and swollen glands.She does not want to go into but wants to see Dr. Motley later in the day on Mon if possible., ; -Red throat -Enlarged tender neck glands -Denies urgent or semi-urgent symptoms PATIENT DENIES... -Fever >101 degrees F -Scarlatinaform rash denies toxic symptoms ALLERGIES/SENSITIVITIES... NKA 07/18/99 CURRENT MEDICATIONS... Estrogen patch,nasonex nasal spray, Cycrin first 10 days of each month,), Claritin D 07/18/99 PERTINENT PAST HISTORY... Chronic Sinusitis 07/18/99 WEIGHT: Not Available PATIENT IS NOT ; PATIENT IS NOT NURSING; ASSESSMENT: sore throat-(adult) PLAN: DISPOSITION: HOME CARE RECOMMENDED THE FOLLOWING... Referenced guideline Sore Throat-(Adult)-Nurse Guidelines. Schedule appointment on nurses schedule for a strep screen if patient is established. -Take acetaminophen or ibuprofen as directed -Gargle with warm salt water or ice water -Use hard candies, ice or cough drops to soothe throat -Increase liquids to 8-10 regular glasses each day. Juice and water are best. Cool beverages or warm liquids are most soothing. -Eat soft foods or suck on flavored frozen desserts -Get extra rest so the body can use it's natural resources to recuperate -Improve room humidity with a cool mist vaporizer Call taken by MICHAEL SHETTY RN [phone] 07/18/1999 04:43 PM ADDENDUM: ICATOR Conversion, [facility] - 07/17/1999 12:01 AM CDT Progress Notes signed by at 05/10/01 2119 Author: Winnie Conversion Service: (none) Author Type: (none) Filed: 01/21/11 1313 Note Time: 07/17/99 0001 Status: Signed Senior Hardware Design Engineer: Winnie Conversion IMPRESSION: Post nasal drip and slight nasal obstruction secondary to moderate inferior turbinate hypertrophy. SUBJECTIVE: Ms. Sheikh is a 53-year-old woman seen for evaluation of post nasal drip and cough and nasal obstruction. She has seen Dr. Duglas Carbajal [facility]. He has obtained a CT scan on her which showed the paranasal sinuses to be clear. She did have edematous inferior turbinates bilaterally refractive to medical management and he did suggest turbinoplasty. She is in for a second opinion. Her review of systems is negative. She has had allergy testing in the past and this was negative. PRESENT MEDICATIONS: Flonase on a b.i.d. basis, Claritin, and progesterone. She does not smoke. ALLERGIES: NO KNOWN DRUG ALLERGIES. OBJECTIVE: Examination reveals the external auditory canal, tympanic membranes, and middle ears to be clear. Nasal cavity shows moderately edematous inferior turbinates. She has a slight anterior septal deflection toward her right side. Nasopharynx is clear. Oral cavity, oropharynx, hypopharynx, and larynx are negative. ASSESSMENT: Post nasal drip and slight nasal obstruction secondary to moderate inferior turbinate hypertrophy. PLAN: I gave her a sample of Nasonex 2 sprays each nostril once per day. I do agree that if this does fail, that turbinoplasty would probably benefit her. Her questions were answered. We will see her in four weeks. CC: [facility]:[id number] C: DOCUMENT: [id number] SCHEDULED RESOURCE: JOSE DAVID ARIZA MD ICATOR Merrill Villavicencio MD - 07/17/1999 12:01 AM CDT Progress Notes signed by Merrill Villavicencio MD at 07/18/99 1513 Author: Merrill Villavicencio MD Service: (none) Author Type: Physician Filed: 01/21/11 1313 Note Time: 07/17/99 0001 Status: Signed Senior Hardware Design Engineer: Merrill Villavicencio MD (Physician) IMPRESSION: See Assessment. SUBJECTIVE: CHIEF COMPLAINT: Back pain with pain and numbness into legs. HISTORY OF PRESENT ILLNESS: This 53-year-old female presents with back pain. 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 Then, when she started school around May 31, she started getting a vague back pain and pain into the right buttock. Since then, it has persisted ever since with progressively more severe pain. Now it radiates into the posterior lateral buttock to the lateral hip, down to knee, and even down into the right great toe. She has had some mild numbness into the anterior knee area. Also, she has had some mild pain into the left buttock and to the left lateral hip. No pain below that level on the left side. There is no bowel or urinary complaints. No pain with Valsalva's maneuvers. She does have trouble sleeping at night, waking up two or times. 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 Despite this, she is only taking Advil 600 mg at nighttime and is not doing anything regularly during the day for pain other than occasional ice packs. No history of disk disease, but she has had back problems in the past and went to physical therapy. She would like to try that again. She does not recall any specific trauma that would warrant a Workman's Compensation claim even though it started around the time she started she started work. She also had been unloading some boxes of books when she came back from [place], and it could have been from some lifting related to that. She has no gynecological complaints, no abdominal complaints, and no urinary complaints. MEDICATIONS: Claritin-D, Flonase, estrogen, Cycrin, progesterone. ALLERGIES: None. OBJECTIVE: T: 97.8. P: 77. R: 16. BP: 148/88. Examination is in the standing position, and gait was normal. She could flex over and touch toes. Extension, lateral rotation, and bending were all normal. Back to palpation in the midline was nontender. More tender in the right paralumbar area than anywhere else with mild spasm. Pain also into the bilateral buttocks as well as into the greater trochanters bilaterally. Straight leg raising elicited buttock pain only with no pain down the legs on either side either sitting or standing, and she had no pain with joint motion of the hips, knees, feet, or ankles. She did have some vague numbness in the anterior carpenter but nowhere else. Normal reflexes at the knees and ankles. ASSESSMENT: 1. Two and a half month history of back pain with radicular symptoms, right greater than left extremity, questionable sciatica, questionable disk disease versus other. 2. Questionable greater trochanter bursitis. PLAN: For pain, she is going to keep on Advil initially 600 mg but increase it to q.i.d. on a full stomach. Tylenol #3 for the severe times, one or two q.i.d. She was given Valium at h.s. for spasm 5-10 mg if needed. Physical therapy referral will be made as soon as possible. Ice and/or heat, whichever feels better. She will follow up with Dr. Faria or her primary doctor if symptoms persist. Consider CT scan or MRI down the line if it gets worse. CC: MINH:[id number] C: DOCUMENT: [id number] Solomon Duke - 03/14/1999 12:01 AM CDT Progress Notes signed by Solomon Duke at 03/19/99 1641 Author: Solomno Duke Service: (none) Author Type: Resource Filed: 01/21/11 1111 Note Time: 03/14/99 0001 Status: Signed Senior Hardware Design Engineer: Solomon Duke (Resource) IMPRESSION: Metatarsalgia and heel spur, left heel. SUBJECTIVE: Ramona is in today for an adjustment of her orthotics. She was in the end of January for her orthotics. She is doing quite well with them. She had two pair made, one which was a soft full-length orthotic for her running shoe and the other was a three-quarter length, out of puff and Plastizote #3, which were three-quarter length for her dressier shoes. She had done extremely well with the three-quarter length ones but the softer walking ones, she is having some discomfort in the first metatarsal head area. OBJECTIVE: Today we did place a thicker metatarsal pad just proximal to the first metatarsal heads, bilaterally. She states this is much more comfortable. This should relieve the pain. ASSESSMENT: Metatarsalgia and heel spur, left heel. PLAN: I explained to Ramona that if she should have any problems or need further adjustment, to please contact me. SAM:[id number] C: DOCUMENT: [id number] Solomon Duke - 02/24/1999 12:01 AM CDT Progress Notes signed by Solomon Duke at 02/28/99 1348 Author: Solomon Duke Service: (none) Author Type: Resource Filed: 01/21/11 1051 Note Time: 02/24/99 0001 Status: Signed Senior Hardware Design Engineer: Solomon Duke (Resource) IMPRESSION: Plantar fasciitis, metatarsal right and left heel pain. SUBJECTIVE: Quita is in today for a final fitting of her orthotics. OBJECTIVE: We made two pair for her. One is a full length composed of Lilian- Lite. These are full length. Also, we added a metatarsal pad to these orthotics to release some of her metatarsal discomfort. We also made a second pair out of Plastazote No. 3 with a top cover of Puff. These are to the MPJ joints. Also, a metatarsal pad was placed on these for her. The latter pair of orthotics will be used more in her dress shoes. ASSESSMENT: Plantar fasciitis, metatarsal right and left heel pain. PLAN: I explained to Ramona if she should have any problems with them to please let us know, and we could adjust them if necessary. SAM:[id number] C: DOCUMENT: [id number] Margot Motley MD - 02/24/1999 12:01 AM CDT Progress Notes signed by Margot Motley MD at 03/17/99 1239 Author: Margot Motley MD Service: (none) Author Type: Physician Filed: 01/21/11 1051 Note Time: 02/24/99 0001 Status: Signed Senior Hardware Design Engineer: Margot Motley MD (Physician) IMPRESSION: Chronic rhinitis and nasal obstruction, Menopause symptoms. SUBJECTIVE: CHIEF COMPLAINT: Sinuses and menopause symptoms. This 54-year-old female is going to be out of town for about three months, going to [place] and then across the country. She has been having some chronic problems over the last two years with sinus congestion. Decongestants make her blood pressure go up. She had seen an ENT in the past who suggested turbinate surgery. At that point she did not want to do that, but now is having enough symptoms that she is considering it. She is on Flonase, Tavist D, or Claritin D fairly routinely and still have trouble breathing through the nose and with a sense of congestion in the head. She has been seeing orthopedics regarding her heel, has orthotics for those which she is hoping will be helpful. She was having ongoing bleeding with estrogen and changing to the 5 mg patch and will do Cycrin 10 days per month. OBJECTIVE: BP: 152/86. T: 98.9. HT: 67. WT: 183. General healthy-appearing female in no acute distress. Tympanic membranes normal. Nares are boggy with quite swollen turbinates. Sinuses nontender. Pharynx benign. Neck supple. Lungs are clear. ASSESSMENT: 1. Chronic rhinitis and nasal obstruction. 2. Menopause symptoms. PLAN: Regimen as above. ENT referral to consider whether she needs any turbinate surgery, and will check mammogram as she is due for that. Other immunizations are up-to-date and she can call from out of town if she needs any refills on her routine medications. MDW:[id number] C: DOCUMENT: [id number] Conversion, [facility] - 02/02/1999 12:01 AM CDT Phone Note signed by Margot Motley MD at 03/17/99 4810 Author: [facility] Conversion Service: (none) Author Type: (none) Filed: 01/21/11 1029 Note Time: 02/02/99 0001 Status: Signed Senior Hardware Design Engineer: Winnie Conversion IMPRESSION: Vomiting-(adult)-nurse guidelines TO: MARGOT MOTLEY FROM: JOHN PALACIOS, RN [phone] * PROVIDER MESSAGE: ROUTINE * 02/02/1999 05:37PM * *WITHIN 4 HOURS * MESSAGE: Call and advise 5/3 am, if * HOME PHONE: [phone] * possible would appreciate call * WORK PHONE: [phone] * between 8:30-9:30 am. * CONTACT PHONE: [phone] * SUBJECTIVE: * Ramona at home * CHIEF CONCERN... Vomiting, -Duration < 24 hours -Mild cramps -Intermittent gas-like pains that are relieved by vomiting Patient calling, seen in earlier this afternoon, diagnosed with sinus infection, given Zithromax rx to take. Took 2 tablets as instructed, also took Claritin D (given today also). About 45 after taking, started vomiting. Has vomited few more times since, wondering what to do? Otherwise has chills intermittently, afebrile, has sinus headache. Wondering if related to medication, possible gastroenteritis, or if could be related to food eaten last pm (was at buffet with food sitting out for long period of time)? Denies breathing or swallowing difficulty, any other symptoms. Would appreciate call in am to advise. PATIENT DENIES... -Any urgent or semi-urgent symptoms ALLERGIES/SENSITIVITIES... NKA 02/02/99 CURRENT MEDICATIONS... Estrogen patch, Flonase nasal spray, Cycrin first 10 days of each month, Accutane, Zithromax (started 02/02), Claritin D 02/02/99 PERTINENT PAST HISTORY... Chronic Sinusitis 02/02/99 WEIGHT: Not Available PATIENT IS NOT ; PATIENT IS NOT NURSING; ASSESSMENT: vomiting-(adult) PLAN: COMMENTS...Advised to stop medication for now until speaking with provider. DISPOSITION: HOME CARE RECOMMENDED THE FOLLOWING... Referenced guideline Vomiting-(adult)-nurse guidelines. -Wait 1-2 hours after vomiting, then sip very small amounts of clear liquids every 15 minutes -Progress to Jell-O, broth, Popsicles, ice chips, diluted apple juice, chicken or rice soup, crackers -Avoid caffeinated drinks, milk products, citrus juice, alcohol, aspirin and ibuprofen, to allow the stomach to rest -If vomiting recurs, go back to beginning steps -Gradually advance the diet to bland foods after 8 hours -Avoid fried, spicy, or other strong foods for 1-2 days Patient information given per Vomiting nurse guidelines. INFORMED PATIENT TO CALLBACK IF... Reasons to call back reviewed- caller verbalizes understanding of the need to call back for the following reasons: -Symptoms persist or progress -Any other questions or concerns Call taken by JOHN PALACIOS, RN [phone] 02/02/1999 05:16 PM ADDENDUM: <> 02/03/1999 09:38AM by UYEN CORONADO: per dr motley. I called pt and told her probably due to the med--take with food --if no better call for substitute. Pt ok with this Shamika Ritchie - 02/02/1999 12:01 AM CDT Progress Notes signed by at 02/13/99 1006 Author: Shamika Damon MD Service: (none) Author Type: (none) Filed: 01/21/11 1029 Note Time: 02/02/99 0001 Status: Signed Senior Hardware Design Engineer: Winnie Conversion IMPRESSION: Sinusitis. SUBJECTIVE: Ramona Sheikh is a 52-year-old female who comes in today reporting a sinus headache right behind her eyes, thick green drainage out of her nose, stiff neck and she reports that when she lies down at night, she has difficulty breathing. She does not report a cough at night. She does not report any fever or chills. She reports she has had a long history of sinus infections. Her current medications include Tavist D, Accutane, Estrogen patch and Cycrin. OBJECTIVE: On physical examination, temperature is 97.8. Pulse is 90. Respiratory rate is 24. Blood pressure is 124/78. She has both maxillary and frontal sinus tenderness on both sides. She also has some anterior cervical nodes that are present. Oral is clear. TMs are clear. Chest is clear to auscultation and percussion. ASSESSMENT: Sinusitis. PLAN: Zithromax as directed. Claritin D, two tablets p.o. b.i.d., number 20. She is also instructed to stop the Tavist D. She will follow-up as needed. [email or web address] Solomon Shipley - 01/30/1999 12:01 AM CDT Progress Notes signed by Solomon Duke at 02/20/99 1300 Author: Solomon Duke Service: (none) Author Type: Resource Filed: 01/21/11 1026 Note Time: 01/30/992157 Status: Signed Senior Hardware Design Engineer: Solomon Duke (Resource) IMPRESSION: Metatarsalgia and heel spur, left heel. SUBJECTIVE: Quita is in today with a prescription from Dr. Ned Townsend in Orthopedics for semi-rigid orthotics with medial longitudinal arch. The diagnosis is left heel pain and metatarsalgia. She has had orthotics in the past. These are an orthotic to the MPJ joint with a metatarsal pad placed just proximal to the met heads. The orthotics are fashioned out of puff material. OBJECTIVE: Today, in talking to Ramona, the shoes that she does wear, she has to wear a 3/4 length orthotic in. 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 I did stress the importance of going to an orthotic, which would be full length to balance her foot well, and a softer material, as she is on her feet eight to ten hours a day. ASSESSMENT: Metatarsalgia and heel spur, left heel. PLAN: At this point, she elects to go with the orthotics to the MPJ joints with the metatarsal pad. Today, negative impressions will be taken. The orthotics will be fashioned out of puff with metatarsal pad proximal to the metatarsal heads. On completion of the orthotics, she will be contacted for a final fitting. SAM:[id number] C: DOCUMENT: [id number] Bony Faria MD - 12/25/1998 12:01 AM CST Progress Notes signed by Bony Faria MD at 03/14/99 0741 Author: Bony Faria MD Service: (none) Author Type: Physician Filed: 01/21/11 0947 Note Time: 12/25/982157 Status: Signed Senior Hardware Design Engineer: Bony Faria MD (Physician) IMPRESSION: Epithelial cyst. Acne, controlled. SUBJECTIVE: Ramona Sheikh has completed three months of Accutane therapy. OBJECTIVE: She exhibits complete clarity, nodular element, trunk, head and neck area. She was encouraged to finish the final two months. General skin care past that time was discussed. She has a cystic mass in the right temporal area, lateral to the outer canthus. Under local anesthesia and sterile conditions, that cyst sac and content were excised. Closure was done with a 5-0 nylon suture. She will return for suture removal in approximately five to six days. ASSESSMENT: 1. Epithelial cyst. 2. Acne, controlled. PLAN: N/A. stp Ranjit Vaughn - 12/19/1998 12:01 AM CST Progress Notes signed by Ranjit Hernadez at 08/11/99 1138 Author: Ranjit Hernadez Service: (none) Author Type: Resource Filed: 01/21/11 0940 Note Time: 12/19/98 0001 Status: Signed Senior Hardware Design Engineer: Ranjit Hernadez (Resource) IMPRESSION: Chronic sinus congestion. SUBJECTIVE: This 53-year-old female presents today to discuss sinus congestion. She has had several bouts of sinusitis this winter. She finds that the Vancenase is helpful at managing the congestion but she does not feel that it lasts for 24 hours. She also wakes up in the night with congestion. She has been using Benadryl at night and Sudafed in the morning. She would like to get the LYMErix vaccine. She spends a lot of time in [facility] and [place] out in the [place] [facility] and finds tics on herself frequently despite taking the standard precautions. OBJECTIVE: BP: 130/90. T: 97.4. P: 72. ASSESSMENT: Chronic sinus congestion. PLAN: She will stop the Vancenase and we will try Beconase AQ one to two sprays in each nostril twice a day to see if the b.i.d. dosing is more helpful for her. She will stop the Benadryl for the time being to see if that is contributing to the feeling of congestion. LYMErix vaccine was started today. RT:[id number] C: DOCUMENT: [id number] Ned Brunson MD - 12/17/1998 12:01 AM CST Progress Notes signed by Ned Townsend MD at 01/17/99 1817 Author: Ned Townsend MD Service: (none) Author Type: Physician Filed: 01/21/11 0937 Note Time: 12/17/982157 Status: Signed Senior Hardware Design Engineer: Ned Townsend MD (Physician) IMPRESSION: 1. Left plantar fasciitis. 2. Right metatarsal. 3. Bilateral pes cavus. SUBJECTIVE: Ramona Sheikh is a 53-year-old female referred by Dr. Margot Motley for evaluation and management of left heel pain and right foot pain for about four years. She had a diagnosis of plantar fasciitis and metatarsalgia. She has been through physical therapy and is on a home exercise program that she does twice a day. She has formal orthotics through [facility] that she brings in with her today. These have not helped much. She also has a night splint obtained from mail order that she wears nightly. She has had a course of anti-inflammatories for two months with little relief. She had a cortisone injection into the left heel and the cortisone injection helped for about two months. She had to give up running about two years ago due to the heel pain and is quite frustrated because she would like to get back into the running and walking. She develops pain after walking about two blocks and has gained weight. She has pain in the right foot below the metatarsal heads. She has not injured either foot. The pain in the left heel is worst first thing in the morning and after walking several blocks. PAST MEDICAL HISTORY: Post menopausal. Matias laparoscopy in 1997, C- section 1978. MEDICATIONS: 1. Estrogen patch. 2. Progesterone. 3. Benadryl. 4. Vancenase. 5. Robitussin. ADVERSE DRUG REACTIONS: None. OBJECTIVE: On physical examination she is a very pleasant, alert female, in no acute distress. Bilateral heel cords are moderately tight with dorsiflexion about 10 degrees. Tenderness over the medial calcaneal tubercle of the left heel. Not very tender along the plantar fascia. Bilateral pes cavus. Right heel is slightly tender over the medial calcaneal tubercle, diffusely tender over the second through fourth metatarsal heads on the plantar aspect. No tenderness between the metatarsals on the dorsum of her foot. Pedal pulses are intact. Duong sign for neuroma is negative. Nontender over the peroneals and posterior tibial tendon bilaterally, and retrocalcaneal bursa region. ASSESSMENT: 1. Left plantar fasciitis. 2. Right metatarsal. 3. Bilateral pes cavus. PLAN: She has had quite a extensive conservative treatment plan. We reviewed her heel cord stretches and gave her a few tips on this. She really wanted another cortisone injection since it did give her considerable relief. Dr. Malloy injected the medial calcaneal tubercle region in the area of most tenderness of the left heel using a mixture of 1 cc of Aristospan and 3 cc of 1% lidocaine, 1/3 of the mixture, using the medial approach. The patient tolerated the procedure well. She was advised to avoid excessive walking for the next week. She will follow-up with Dr. Malloy if her symptoms persist. We set her up for a semi-rigid orthotic with a medial longitudinal arch with Preston Duke since her present orthotics are too flexible for her foot. She will see Dr. Malloy if no improvement with the orthotics and cortisone injection in about 8 to 12 weeks. [id number] Conversion, [facility] - 11/22/1998 12:01 AM CST Phone Note signed by at 11/22/98 150 Author: [facility] Conversion Service: (none) Author Type: (none) Filed: 01/21/11 0910 Note Time: 11/22/982157 Status: Signed Senior Hardware Design Engineer: Winnie Conversion TO: RANJIT HERNADEZ FROM: PIERRE MADDOX [phone] 11/22/98 * PROVIDER MESSAGE: ROUTINE * 03:07PM * *WITHIN 4 HOURS * MESSAGE: WAS TREATED WITH CEFTIN FOR * HOME PHONE:[phone] * SINUS INF. FROM . END OF OCTOBER. * WORK PHONE:[phone] * HAS SAME SX. BACK. WANTS TO TRY * CONTACT PHONE:[phone] * DIFFERENT RX. AUGMENTEN DIDNT WORK * WORK UNTIL 3:45 [phone] * WELL EITHER.__ALSO WANTS RX * HOME AFTER 4:15 CIP * QUIFENISIN.SAW Jessica HERNADEZ FOR F/U IN * PHARMACY: [phone] * NOV. * MAMADOU_ANITA LONG * SUBJECTIVE: ALLERGIES/SENSITIVITIES... NKA 10/03/98 CURRENT MEDICATIONS... Estrogen patch, naproxsyn, vancinase nasal spray, benadryl 10/03/98 PERTINENT PAST HISTORY... Chronic Sinusitis 10/03/98 WEIGHT: PATIENT IS NOT . PATIENT IS NOT NURSING. ASSESSMENT: PLAN: DISPOSITION: NO DISPOSITION GIVEN CALL BY PIERRE MADDOX 11/22/1998 02:55PM [id number] ADDENDUM: <> 11/22/1998 04:43PM by PIERRE MADDOX: RX ENTEX LA BID PRN #[id number] NO REFILLS CALLED TO PHARMACY PER Jessica HERNADEZ. PHARMACY TOLD WE TRIED TO GET HOLD OF PT. MANY TIMES BUT WASNT HOME TO DISCUSS SINUS SX. CAN CALL PHONE CARE TO DISCUSS SX AND RX TO DECIDE ABOUT SINUS INF. ICATOR Conversion, [facility] - 11/22/1998 12:01 AM CST Phone Note signed by at 11/22/98 0007 Author: Winnie Conversion Service: (none) Author Type: (none) Filed: 01/21/11 0910 Note Time: 11/22/98 0001 Status: Signed Senior Hardware Design Engineer: Winnie Conversion IMPRESSION: Sinus congestion-(adult)-nurse guidelines - TREATING PROVIDER: WU CANELA - PHARMACY: [phone] [facility] * HOME PHONE: [phone] * SUBJECTIVE: * WORK PHONE: [phone] * PATIENT COMPLAINS OF... Sinus * CONTACT PHONE: [phone] * congestion, for 7 or more * ext. 124 between 2 and * days, interferes with ADL's, * 3 pm * accompanied by 2 or more of the following symptoms: x 2.5 weeks, green drainage x 4 days and fever 102 the last 2 days. ; -Thick, yellow/green nasal discharge -Facial or sinus pain, made worse by bending over or straining Lt side cheek pain.; -Post nasal drip with sore throat and/or cough -Headache (frontal) -Denies urgent or semi-urgent symptoms ALLERGIES/SENSITIVITIES... NKA 11/22/98 CURRENT MEDICATIONS... Estrogen patch, Vancenase nasal spray, benadryl prn, Cycrin ist 10 days of each month 11/22/98 PERTINENT PAST HISTORY... Chronic Sinusitis 11/22/98 ASSESSMENT: Sinus congestion-(adult)-nurse guidelines DISPOSITION: HOME CARE PATIENT IS NOT ; PATIENT IS NOT NURSING; PLAN: STANDING ORDERS IMPLEMENTED... Amoxicillin: 500 mgm tid x 10 days (o) RECOMMENDED THE FOLLOWING... Referenced guideline Sinus congestion-(adult)-nurse guidelines. Call prescription to pharmacy as directed by [facility] Physician Standing Orders -Improve room humidity with a cool mist vaporizer -Increase fluid intake -Elevate head when resting and sleeping -Take steamy showers -Apply warm compresses or heating pad to sinus area -Take analgesic of choice as directed on package -Use saline drops or nasal spray for nasal congestion -Use OTC decongestants for relief of drainage and congestion -Avoid cigarette smoke or extremely cool or dry air Patient information given per Sinus Congestion nurse guidelines. INFORMED PATIENT TO CALLBACK IF... Reasons to call back reviewed- caller verbalizes understanding of the need to call back for the following reasons: -Symptoms worsen after 48 hours of medication MISC COMMENTS... Rx. called to pharmacistJulio Cesar. Call taken by HONEY COX RN [phone] 11/22/1998 06:38 PM ADDENDUM: <> 11/26/1998 02:27PM by RANJIT ESPINO RN [phone]: Nurse callback. Patient still taking medication, now c/o discharge from nose and her ear is crackling. Taking Advil w/ some relief. Feels sx have improved slightly since starting medication. Reviewed Sinus Congestion Home Cares, patient will continue with recommended measures and medication. Will call if sx worsen or continue after medication is finished. Nurse callback done by Beatrice Ocampo RN. ICATOR Ranjit Hernadez - 11/05/1998 12:01 AM CST Progress Notes signed by Ranjit Hernadez at 06/13/99 1252 Author: Ranjit Hernadez Service: (none) Author Type: Resource Filed: 01/21/11 0849 Note Time: 11/05/98 0001 Status: Signed Senior Hardware Design Engineer: Ranjit Hernadez (Resource) IMPRESSION: Plantar fasciitis. Metatarsalgia. Follow up sinusitis. SUBJECTIVE: This 53 year-old female comes in today for follow up of sinusitis. She was seen in Urgent Care and was treated with Ceftin. This is after she had been treated in [place] with Augmentin. She reports she no longer has any sinus pain. She has been afebrile since taking the antibiotic. She now has minimal, clear nasal discharge. She would like to also follow up on metatarsalgia and plantar fasciitis. She has been followed by Dr. Motley, her primary provider. She has tried anti-inflammatories and custom orthotics and has had a steroid injection from her eckspnl-gn-dxn who is an orthopaedic surgeon. She reports she has been to podiatry in the past and did not find that helpful. She is interested in going to orthopaedics and had discussed that in the past with Dr. Motley. She would like a referral at this point. OBJECTIVE: BP: 146/80 in the right arm with a standard cuff. Recheck was 130/80; Ht: 5'7; Wt: 185. ASSESSMENT: 1. Plantar fasciitis. 2. Metatarsalgia. 3. Follow up sinusitis. PLAN: A referral to orthopaedics was given. cc: Margot Motley M.D. [email or web address]/[id number]/ Michelle, [facility] - 10/21/1998 12:01 AM CST Progress Notes signed by at 05/10/012036 Author: Imr Conversion Service: (none) Author Type: (none) Filed: 01/21/11 0831 Note Time: 10/21/98 0001 Status: Signed Senior Hardware Design Engineer: Winnie Martinez IMPRESSION: Persistent sinusitis. SUBJECTIVE: Ramona Sehikh is a 53-year-old female who has had nasal congestion for the last month. She was seen in [place] September 21 for sinusitis and was treated with Augmentin 1 p.o. b.i.d. x three weeks. She did improve somewhat on the Augmentin, but has had persistent nasal congestion since. In the last three days she has developed a sore throat, increased bilateral maxillary sinus tenderness, and some left ear discomfort. She is having postnasal drip. She has had sinusitis in the past, but has not had an episode since last February. She did spike a temperature up to 101 yesterday and has had chills. No sweats. She does not smoke. No history of asthma or respiratory diseases. She does have a cough, but feels this is due to her postnasal drainage. She reports the nasal mucus is yellowish, with some blood streaks. PAST MEDICAL HISTORY: History of sinusitis and acne. MEDICATIONS: Accutane, estrogen patch, Cycrin off and on, and a Vancenase inhaler. ALLERGIES: No known drug allergies. OBJECTIVE: T: 98.9. P: 72. R: 20. BP: 138/82. Jpjnv-umn-gofj-old female in no acute distress. Bilateral eyes: Conjunctivae clear. Bilateral tympanic membranes and external canals clear. Positive bilateral maxillary sinus tenderness on palpation and percussion. No frontal sinus tenderness. Throat: Pharynx mildly injected. Some purulent discharge noted in the posterior pharynx. Positive anterior chain cervical adenopathy bilaterally. Lungs are clear to auscultation anteriorly and posteriorly. Heart: Normal S1 and S2, without murmur or click. ASSESSMENT: Persistent sinusitis. PLAN: 1. Ceftin 250 mg p.o. b.i.d. x 10 days. 2. Trial of Entex LA 1 p.o. b.i.d. 3. Continue [place] nasal saline solution. 4. Continue Vancenase. 5. Continue humidifier at night. 6. The patient will follow up with Dr. Motley in 10 to 14 days. stshelli SCHEDULED RESOURCE: [facility] ICATOR Conversion, [facility] - 10/03/1998 12:01 AM CST Phone Note signed by at 10/03/98 3162 Author: Winnie Conversion Service: (none) Author Type: (none) Filed: 01/21/11 0814 Note Time: 10/03/98 0001 Status: Signed Senior Hardware Design Engineer: Winnie Conversion IMPRESSION: req refill TO: MARGOT MOTLEY FROM: PERFECTO VILLAVICENCIO RN [phone] * PROVIDER MESSAGE: ROUTINE * 10/03/1998 03:51PM * *WITHIN 4 HOURS * MESSAGE: Pt req refill for Vacinase * HOME PHONE: [phone] * nasal spray. 84mcg, 2 sprays into * WORK PHONE: [phone] * each nostril daily. Is aware MD * CONTACT PHONE: [phone] * out today wondering if another MD * pt * can call refill in. * PHARMACY: [phone] * SUBJECTIVE: * snyders * ALLERGIES/SENSITIVITIES... NKA 10/03/98 CURRENT MEDICATIONS... Estrogen patch, naproxsyn, vancinase nasal spray, benadryl 10/03/98 PERTINENT PAST HISTORY... Chronic Sinusitis 10/03/98 WEIGHT: Not Available PATIENT IS NOT ; PATIENT IS NOT NURSING; ASSESSMENT: req refill PLAN: DISPOSITION: NO DISPOSITION GIVEN Call taken by PERFECTO VILLAVICENCIO RN [phone] 10/03/1998 03:47 PM ADDENDUM: <> 10/07/1998 08:22AM by RANJIT MCFARLAND: per dr. jesus i called in a script for a refill of vancenase aq ds w/ no refills pt. was informed. ICATOR Bony Faria MD - 09/17/1998 12:01 AM CST Progress Notes signed by Bony Faria MD at 12/26/98 1327 Author: Bony Faria MD Service: (none) Author Type: Physician Filed: 01/21/11 0758 Note Time: 09/17/98 0001 Status: Signed Senior Hardware Design Engineer: Bony Faria MD (Physician) IMPRESSION: Acne, chronic nodular type, diffuse trunk involvement. SUBJECTIVE: Ramona Sheikh has had acne throughout her entire life. In her teens it involved principally the face, the lower face with nodular involvement. Became a problem in the early 20s. Constantly now she has upper trunk and back involvement. She is 53-year-old. There is no chance of childbearing. OBJECTIVE: She has an epithelial cyst on the upper eyelid right. This was examined. Consideration for resection of this cyst will be discussed later. ASSESSMENT: Acne, chronic nodular type, diffuse trunk involvement. PLAN: After discussion, we elected to proceed with isotretinoin at 40 mg daily. She will return in two months for continuation of monitoring and dosage adjustment. Note that patient has a history of being unresponsive to topical medications and antibiotic therapy. sts ICATOR Margot Motley MD - 08/01/1998 12:01 AM CST Progress Notes signed by Margot Motley MD at 08/13/98 1323 Author: Margot Motley MD Service: (none) Author Type: Physician Filed: 01/21/11 0711 Note Time: 08/01/98 0001 Status: Signed Senior Hardware Design Engineer: Margot Motley MD (Physician) IMPRESSION: Metatarsalgia; Plantar fasciitis, improved; Back pain, improved. SUBJECTIVE: CHIEF COMPLAINT: Follow-up on foot and back pain. This 53-year-old female is here for follow-up. She notes that her plantar fasciitis is much better. She got a steroid injection from her gumlazv-gr-hzr, an orthopedic surgeon, and that has essentially resolved. However, she had a flare of her metatarsalgia in June. The orthotic pads and Naprosyn help, but it is limiting her function. She can't walk for any distance and can't do her previous running. She would like to be able to exercise without pain. She also notes that she had some back pain in her right flank, but had a chiropractic adjustment and that has essentially resolved. OBJECTIVE: BP: 132/84. HT: 5 feet 7 inches. WT: 179. Back has good range of motion. Feet are nontender at the plantar fascia. She does, however, have some tenderness at the metatarsals. ASSESSMENT: 1. Metatarsalgia. 2. Plantar fasciitis, improved. 3. Back pain, improved. PLAN: Flu shot was given at the patient's request today. Will do a trial of Naprosyn for one month. If that is not helpful, will consider whether to refer to sports medicine since that is where her concerns mostly are, or whether to go back to orthopedics. She already has custom orthotics for the metatarsalgia. sja ICATOR Reza Molina MD - 06/19/1998 12:01 AM CDT Progress Notes signed by Reza Molina MD at 07/03/98 1459 Author: Reza Molina MD Service: (none) Author Type: Physician Filed: 01/21/11 0628 Note Time: 06/19/98 0001 Status: Signed Senior Hardware Design Engineer: Reza Molina MD (Physician) IMPRESSION: Postop check after a bilateral breast reduction. SUBJECTIVE: Ramona Sheikh is here for a followup after her bilateral breast reduction. She is quite happy with the size and shape of her breasts. She got a total resolution about her symptoms. She is otherwise doing well. OBJECTIVE: She has a small open area on the three-corner closure of the right-hand side. Other than that, it looks quite good. ASSESSMENT: Excellent result after a bilateral breast reduction. PLAN: She is going to be discharged from my care. jjs Lisa Diaz MD - 06/09/1998 12:01 AM CDT Progress Notes signed by at 10/15/98 1845 Author: Lisa Keen MD Service: (none) Author Type: (none) Filed: 01/21/11 0619 Note Time: 06/09/98 0001 Status: Signed Senior Hardware Design Engineer: Winnie Martinez IMPRESSION: 1. Bilateral conjunctivitis, probably viral. 2. Metatarsalgia of the right foot. SUBJECTIVE: This is a 52-year-old woman who complains of bilateral eye burning, tearing frequently, and that her eyes are mattered shut in the morning for the last 3-4 days. She has not had any change in vision. She does not have any pain in the eyes. She is healthy generally. She has some nasal allergies and has had some problems with her foot, and in fact did some moving yesterday and has a flare of some metatarsal head pain that she has on the right. She is taking Naprosyn, estrogen patch, Benadryl at bedtime, Vancenase nasal spray, and progestin. She has no allergies. Has had nasal congestion recently. It is not clear to me whether this might be a viral in addition to an ordinary allergic disease. She is not bothered by it however. OBJECTIVE: BP: 121/72. P: 71. R: 16. T: 98.9. Eyes really are quite unremarkable. Her conjunctiva are not terribly injected. Extraocular motions are intact. She basically does not look like she is in any acute distress whatsoever. The shoes were examined. She is not wearing medially or laterally. She has a decent arch support but not a very high one. It could be more supportive. ASSESSMENT: 1. Bilateral conjunctivitis, probably viral. 2. Metatarsal pain probably secondary to excess weight on them. 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 She needs to just make sure that she washes her hands frequently and doesn't touch her eyes during the day. As concerns the metatarsal heads, I advised that she get a very good arch support in her shoes and perhaps get new shoes so that she has good cushioning. Wear her athletic shoes as much of the day as possible for the cushioning. Return if she has any change in her vision or eye pain. [facility] Reza Muro MD - 05/17/1998 12:01 AM CDT Progress Notes signed by Reza Molina MD at 06/05/98 2513 Author: Reza Molina MD Service: (none) Author Type: Physician Filed: 01/21/11 0558 Note Time: 05/17/982157 Status: Signed Senior Hardware Design Engineer: Reza Molina MD (Physician) IMPRESSION: Postop check after bilateral breast reduction. SUBJECTIVE: Ramona Sheikh is here for a postop check after bilateral breast reduction. Her pathology turned out to be benign. OBJECTIVE: Her incisions look quite good. ASSESSMENT: Postop check after bilateral breast reduction. PLAN: She is going to return to see us in three weeks for a recheck. jjs Margot Blanco PT - 05/13/1998 12:01 AM CDT Progress Notes signed by Margot Blanco PT at 05/29/98 6673 Author: Margot Blanco PT Service: (none) Author Type: Physical Therapist Filed: 01/21/11 0553 Note Time: 05/13/98 0001 Status: Signed Senior Hardware Design Engineer: Margot Blanco PT (Physical Therapist) IMPRESSION: Pain in left heel. SUBJECTIVE: Quita Sheikh is a 52-year-old female seen today for a three month history of left heel pain. The patient reports that the pain appears to be getting slightly worse and is constant in nature. The patient notes that the pain is worse in the morning when she first gets up. She has a very difficulty time walking on it and gets gradually better as the day goes on.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 Performing Organization Address [facility] Phon e Number HP CONVERSION (ABNORMAL) Wet Prep [facility] (04/05/2001 11:19 AM CDT) Patholo gist Method Time Signature Wet Smear ? No normal HP CONVERSION range Trichomonas Negative No normal HP CONVERSION range Wet Prep WBC Moderate No normal HP CONVERSION [facility] Bacteria Urine Moderate No normal HP CONVERSION range Wet Prep Clue Negative No normal HP CONVERSION Cells [facility] U Yeast Positive (A) No normal HP CONVERSION range Wet Prep Amine Negative No normal HP CONVERSION Odor [facility] Specimen (Source) Anatomical Collection Method Collection Time Re ceived Time Location / / Volume Laterality 04/05/2001 11:19 AM CDT Merrill Villavicencio MD LAB_1 Performing Organization Address [facility] Phon e Number HP CONVERSION Urine Culture (04/05/2001 10:38 AM CDT) Analysis Performed At Patho logist Time Signature Urine Culture SEE TEXT HP CONVERSION Comment: Patient: RAMONA SHEIKH Carmen Culture, Urine @ ?Collected: ??[id number] ??[id number] Source: Clean Ca ?Processed: ??[id number] ??1038 ? SENS Final Report ------ ?[id number] ??0854 50-100,000 CFU/mL Mixed gram positive or ganisms No further workup @ = URINE CULTURE Performed at ??[address] [facility], [place] ?[address] URINE CULTURE ([id number] -- Current) Specimen (Source) Anatomical Collection Method Collection Time Re ceived Time Location / / Volume Laterality 04/05/2001 10:38 AM CDT Merrill Villavicencio MD LAB_1 Performing Organization Address City/State/ZIP Code Phon e Number HP CONVERSION (ABNORMAL) Urinalysis Complete Hold Culture (04/05/2001 10:03 AM CDT) [facility] gist Method Time Signature U Specific >=1.030 1.005 - 25 HP CONVERSION [place] pH Urine 5.0 4.5 - 7.5 HP CONVERSION Protein Urine Negative Neg-Trac HP CONVERSION Glucose, Negative Neg-Trac HP CONVERSION Qualitative U Ketones Trace (A) Negative HP CONVERSION U BILI Negative Negative HP CONVERSION Blood Urine Trace (A) Negative HP CONVERSION Nitrite Urine Negative Negative HP CONVERSION Leukocyte Small (A) Negative HP CONVERSION Esterase Urine Urobilinogen Negative 0.2 - 1.0 HP CONVERSION Urine White Blood 25-50 (A) 0 - 3 /HPF HP CONVERSION Cells Urine Red Blood Cells 5-10 (A) 0 - 3 /HPF HP CONVERSION Urine Epithelial Cells Moderate Few /HPF HP CONVERSION Bacteria Urine Moderate None HP CONVERSION (A) Urine Cultured? Yes No normal HP CONVERSION range Hold For Yes No normal HP CONVERSION Culture? range Specimen (Source) Anatomical Collection Method Collection Time Re ceived Time Location / / Volume Laterality 04/05/2001 10:03 AM CDT Merrill Villavicencio MD LAB_1 Performing Organization Address City/State/ZIP Code Phon e Number HP CONVERSION MM Mammogram Screening W CAD (07/16/2000 7:30 AM CDT) Anatomical Region Laterality Modality Breast Bilateral Mammography Specimen (Source) Anatomical Location Collection Method / Collectio n Time Received Time / Laterality Volume Impressions 07/16/2000 7:30 AM CDT : ?? NO MAMMOGRAPHIC EVIDENCE OF MALIGNAN CY. ACR-BIRADS CATEGORY 1: ??NEGATIVE. FINDINGS: ?? M3U ?? THE BREASTS ARE MILDLY TO MODERATELY DENSE. ??THIS MAY LOWER THE ?? SENSITIVITY OF MAMMOGRAPHY. ??THERE ARE NO SUSPICIOUS MASSES OR ?? CALCIFICATIONS. ?? NO CHANGE IN APPEARANCE FROM 9. TECH-ID : ? CHRISTA TRANS-ID: Narrative 07/16/2000 7:30 AM CDT SEVERITY: 1 CLINICAL DATA: ?ROUTINE MAMMO Procedure Note Ángel Duke MD - 12/06/2016Format ting of this note might be different from the original. SEVERITY: 1 CLINICAL DATA: ROUTINE MAMMO IMPRESSION : NO MAMMOGRAPHIC EVIDENCE OF MALIGNANCY. ACR-BIRADS CATEGORY 1: NEGATIVE. FINDINGS: M3U THE BREASTS ARE MILDLY TO MODERATELY DE NSE. THIS MAY LOWER THE SENSITIVITY OF MAMMOGRAPHY. THERE ARE N O SUSPICIOUS MASSES OR CALCIFICATIONS. NO CHANGE IN APPEARANCE FROM 06/02/99. TECH-ID : CHRISTA TRANS-ID: Margot Motley MD RAD [facility] Wet Prep [facility] (06/09/2000 7:51 PM CDT) [facility] Method Time Signature Wet Prep [place] ? No normal HP CONVERSION [facility] Wet Prep Trich Negative No normal HP CONVERSION [place] [facility] Wet Prep WBC Few No normal HP CONVERSION [facility] Wet Prep Few No normal HP CONVERSION Bacteria [facility] Wet Prep Clue Negative No normal HP CONVERSION Cells [place] [facility] Wet Prep Yeast Negative No normal HP CONVERSION [facility] Wet Prep Amine Negative No normal HP CONVERSION [place] range Ness Cl Specimen (Source) Anatomical Collection Method Collection Time Re ceived Time Location / / Volume Laterality 06/09/2000 7:51 PM CDT Stephy Cheng MD LAB_1 Performing Organization Address [facility] Phon e Number HP CONVERSION XR Foot 3+ Views (06/09/2000 7:51 PM CDT) Anatomical Region Laterality Modality Other Specimen (Source) Anatomical Location Collection Method / Collectio n Time Received Time / Laterality Volume Narrative 06/09/2000 7:51 PM CDT CLINICAL DATA: ?[id number] FINDINGS: ?NO ACUTE FRACTURE. ??NO SIGNIFICAN T ARTHRITIC CHANGES. ??THERE ?IS MILD POSTERIOR CALCANEAL SPURRI NG SEEN. ?MT [id number] TECH-ID : ? RAMONA TRANS-ID: ? EDR Procedure Note Avel Gupta MD - 12/06/2016 CLINICAL DATA: [id number] FINDINGS: NO ACUTE FRACTURE. NO SIGNIFICANT ARTHR ITIC CHANGES. THERE IS MILD POSTERIOR CALCANEAL SPURRING SE EN. MT [id number] TECH-ID : RAMONA TRANS-ID: EDR Stephy Cheng MD RAD GD Strep Group A Antigen Test (05/14/2000 5:04 PM CDT) Analysis Performed At Patho logis Time Signature Strep Group A Negative Negative HP CONVERSION Antigen Test Comment: Culture to follow. Specimen (Source) Anatomical Collection Method Collection Time Re ceived Time Location / / Volume Laterality 05/14/2000 5:04 PM CDT Margot Motley MD LAB_1 Performing Organization Address [facility] Phon e Number HP CONVERSION (ABNORMAL) Beta Strep Followup (05/14/2000 5:04 PM CDT) Analysis Performed At Patho logist Time Signature Strep Screen SEE TEXT HP CONVERSION (A) Comment: Patient: RAMONA SHEIKH Rapid Strep Follow up Culture @ ? Collected: ??[id number] ??1704 Source: Throat ?Processed: ??[id number] ??[id number] Final Report ------ ?[id number] ??0951 Beta Strep Group A Present. ICSI Pharyngitis guideline recommends Penicillin V potassium (Pen VK) in nonal lergic patients. If < 50 lbs, 250 mg PenVK BID for 10 day s. >=50 lbs, 500 mg PenVK BID for 10 days. @ = Rapid F/U Cult Performed at ??[address] [place] ?[address] Specimen (Source) Anatomical Collection Method Collection Time Re ceived Time Location / / Volume Laterality 05/14/2000 5:04 PM CDT Margot Motley MD LAB_1 Performing Organization Address [facility] Phon e Number HP CONVERSION Strep Group A Antigen Test (03/13/2000 2:46 PM CDT) Analysis Performed At [facility] Time Signature Strep Group A Negative Negative HP CONVERSION Antigen Test Comment: Culture to follow. Specimen (Source) Anatomical Collection Method Collection Time Re ceived Time Location / / Volume Laterality 03/13/2000 2:46 PM CDT Linsey Trujillo MD LAB_1 Performing Organization Address [facility] Code Phon e Number HP CONVERSION Beta Strep Followup (03/13/2000 2:46 PM CDT) athologist Signature Strep Screen SEE TEXT HP CONVERSION Comment: Patient: RAMONA SHEIKH Carmen Rapid Strep Follow up Culture @ ? Collected: ??[id number] ??1446 Source: Throat ?Processed: ??[id number] ??1448 Final Report ------ ?[id number] ??0942 No beta hemolytic Strep group A isolated . @ = Rapid F/U Cult Performed at ??[address] [place] [place] ?[address] Specimen (Source) Anatomical Collection Method Collection Time Re ceived Time Location / / Volume Laterality 03/13/2000 2:46 PM CDT Linsey Trujillo MD LAB_1 Performing Organization Address City/State/ZIP Code Phon e Number HP CONVERSION (ABNORMAL) Clostridium Difficile Toxin (01/07/2000 9:00 PM CDT) [facility] gist Method Time Signature Clostridium SEE TEXT HP CONVERSION difficile Toxin (A) Comment: Patient: RAMONA SHEIKH Source: Stool ? [id number] ?Processed: ??[id number] 1556 Final Report ------ ?[id number] ?1129 Clostridium difficile toxin detected Telephone report made to: [facility] 01-09-00 PB @ = C DIFF TOXIN Performed at ??[address] [place], [place] ?[address] Specimen (Source) Anatomical Collection Method Collection Time Re ceived Time Location / / Volume Laterality 01/07/2000 9:00 PM CDT Kaden Jesus MD LAB_1 Performing Organization Address City/State/ZIP Code Phon e Number HP CONVERSION Giardia Antigen Screen (01/07/2000 9:00 PM CDT) P athologist Signature Gi[place]ia Ab SEE TEXT HP CONVERSION Comment: Patient: KORI RAMONA E Giardia Screen @ ?Collected: ??[id number] ??2100 Source: Stool ? Processed: ??[id number] ??1556 Final Report ------ ?[id number] ??1532 Negative for Giardia antigen @ = Giardia Screen Performed at ??[address] [facility] [facility] Specimen (Source) Anatomical Collection Method Collection Time Re ceived Time Location / / Volume Laterality 01/07/2000 9:00 PM CDT Kaden Jesus MD LAB_1 Performing Organization Address [facility] Phon e Number HP CONVERSION Ova and Parasite (01/07/2000 9:00 PM CDT) [facility] gist Method Time Signature Ova & Parasite SEE TEXT HP CONVERSION Concentrate Comment: Patient: KORI RAMONA E Ova + Parasite Exam @ ? Collected: ??[id number] ??2100 Source: Stool ? Processed: ??[id number] ??1556 Final Report ------ ?[id number] ??0855 No amoeba, ova or parasites seen upon co ncentration No trophozoites or cysts seen on permane nt stain prep. No Cryptosporidia or Cyclospora seen. Specimen (Source) Anatomical Collection Method Collection Time Re ceived Time Location / / Volume Laterality 01/07/2000 9:00 PM CDT Kaden Jesus MD LAB_1 Performing Organization Address [facility]/ZIP Code Phon e Number HP CONVERSION Electrolytes (NA, K, CL, Bicarb) (01/06/2000 3:35 PM CDT) athologist Signature Sodium 138 137 - 147 HP CONVERSION meq/L Potassium 4.0 3.5 - 5.2 HP CONVERSION meq/L Chloride 104 98 - 110 HP CONVERSION meq/L Bicarbonate 30 23 - 33 HP CONVERSION mmol/L Specimen (Source) Anatomical Collection Method Collection Time Re ceived Time Location / / Volume Laterality 01/06/2000 3:35 PM CDT Kaden Jesus MD LAB_1 Performing Organization Address City/[facility] Phon e Number HP CONVERSION Hemoglobin, Blood (01/06/2000 3:35 PM CDT) athologist Signature Hemoglobin 14.6 11.8 - 15.5 HP CONVERSION gm/dL Specimen (Source) Anatomical Collection Method Collection Time Re ceived Time Location / / Volume Laterality 01/06/2000 3:35 PM CDT Kaden Jesus MD LAB_1 Performing Organization Address City/[facility]/ZIP Code Phon e Number HP CONVERSION ESR (01/06/2000 3:35 PM CDT) [facility] Method Time Signature Sedimentation Rate 5 0 - 20 HP CONVERSI ON mm/Hr Specimen (Source) Anatomical Collection Method Collection Time Re ceived Time Location / / Volume Laterality 01/06/2000 3:35 PM CDT Kaden Jesus MD LAB_1 Performing Organization Address City/[facility]/ZIP Code Phon e Number HP CONVERSION Thyroid Stimulating Hormone (01/06/2000 3:35 PM CDT) athologist Signature Thyroid 0.92 0.20 - HP CONVERSION Stimulating 5.50 Hormone uIU/mL Specimen (Source) Anatomical Collection Method Collection Time Re ceived Time Location / / Volume Laterality 01/06/2000 3:35 PM CDT Kaden Jesus MD LAB_1 Performing Organization Address City/[facility]/ZIP Code Phon e Number HP CONVERSION Ova and Parasite (12/27/1999 1:05 PM MASTICATOR) [facility] gist Method Time Signature Ova & Parasite SEE TEXT HP CONVERSION Concentrate Comment: Patient: RAMONA SHEIKH E Ova + Parasite Exam @ ? Collected: ??[id number] ??[id number] Source: Stool ? Processed: ??[id number] ??[id number] Final Report ------ ?[id number] ??1333 No amoeba, ova or parasites seen upon co ncentration No trophozoites or cysts seen on permane nt stain prep. No Cryptosporidia or Cyclospora seen. Specimen (Source) Anatomical Collection Method Collection Time Re ceived Time Location / / Volume Laterality 12/27/1999 1:05 PM MASTICATOR Solomon Alexis MD LAB_1 Performing Organization Address City/State/ZIP Code Phon e Number HP CONVERSION Stool Culture (12/27/1999 1:05 PM MASTICATOR) Analysis Performed At [facility]o [facility] Time Signature Stool Culture SEE TEXT HP CONVERSION Comment: Patient: RAMONA SHEIKH Culture, Stool @ ?Collected: ??[id number] ??[id number] Source: Stool ? Processed: ??[id number] ??1512 Final Report ------ ?[id number] ??0903 No Salmonella, Shigella, Campylobacter o r E coli 0157 isolated. Aeromonas, Plesiomonas, and Vi brio may be missed. If patient has a history of fore ign travel, eating raw shellfish or other contact wi th contaminated water, another culture should be submitt ed with these organisms specifically requested. @ = STOOL CULTURE Performed at ??[address], [place] ?[address] Specimen (Source) Anatomical Collection Method Collection Time Re ceived Time Location / / Volume Laterality 12/27/1999 1:05 PM MASTICATOR Solomon Alexis MD LAB_1 Performing Organization Address City/State/ZIP Code Phon e Number HP CONVERSION US Unilateral Venous Mapping (12/03/1999 3:00 PM MASTICATOR) Anatomical Region Laterality Modality Other Specimen (Source) Anatomical Location Collection Method / Collectio n Time Received Time / Laterality Volume Impressions 12/03/1999 3:00 PM MASTICATOR : ?INCOMPETENCY INVOLVING PROXIMAL LE FT GREATER SAPHENOUS VEIN. ?NO DEEP VENOUS INCOMPETENCY IN THE LEFT LOWER EXTREMITY ?IDENTIFIED. FINDINGS: ?ULTRASOUND EXAMINATION OF THE DEEP VEINS FROM THE GROIN TO ?THE KNEE SHOW NO EVIDENCE OF DEEP VENOUS THROMBOSIS. ??NO ?FLOW REVERSAL IS SEEN WITHIN THE L EFT COMMON FEMORAL VEIN ?WITH VALSALVA OR AUGMENTATION. ??H OWEVER, REFLUX IS SEEN ?INVOLVING THE LEFT PROXIMAL GREATE R SAPHENOUS VEIN FOLLOWING ?AUGMENTATION. ??NO REFLUX IS SEEN WITHIN THE DEEP VEINS OF ?THE LEFT LOWER EXTREMITY FOLLOWING AUGMENTATION. TECH-ID : ? TMK TRANS-ID: ? NLL Narrative 12/03/1999 3:00 PM MASTICATOR CLINICAL DATA: ?LT LEG JUNE U/S, INCOMP. Procedure Note Jessica Garcia MD - 12/06/2016Formatt ing of this note might be different from the original. CLINICAL DATA: LT LEG JUNE U/S, INCOMP. IMPRESSION : INCOMPETENCY INVOLVING PROXIMAL LEFT GR EATER SAPHENOUS VEIN. NO DEEP VENOUS INCOMPETENCY IN THE LEFT LOWER EXTREMITY IDENTIFIED. FINDINGS: ULTRASOUND EXAMINATION OF THE DEEP VEIN S FROM THE GROIN TO THE KNEE SHOW NO EVIDENCE OF DEEP VENOU S THROMBOSIS. NO FLOW REVERSAL IS SEEN WITHIN THE LEFT C OMMON FEMORAL VEIN WITH VALSALVA OR AUGMENTATION. HOWEVER, REFLUX IS SEEN INVOLVING THE LEFT PROXIMAL GREATER SAP HENOUS VEIN FOLLOWING AUGMENTATION. NO REFLUX IS SEEN WITHIN THE DEEP VEINS OF THE LEFT LOWER EXTREMITY FOLLOWING AUGM ENTATION. TECH-ID : TMK TRANS-ID: NLL Ángel Hodgson MD [facility] Anatomical Path-C (10/16/1999 5:45 AM MASTICATOR) athologist Signature PAP Smear SEE TEXT No normal HP CONVERSION range Comment: Patient: RAMONA SHEIKH ? CERVICAL CYTOLOGY REPORT Pathology # ??[id number] ?Date Obtained: ? Date Received: LMP: CLINICAL HIST CERVICAL SMEAR SPECIMEN ADEQUACY: ?? Satisfactory. ENDOCERVICAL CELLS: ??Absent; patient is post-menopausal. CYTOLOGIC IMPRESSION: Within Normal Limits (Negative). Verified 10/22/99 by: ??DLS ?(electronic signature) Specimen (Source) Anatomical Collection Method Collection Time Re ceived Time Location / / Volume Laterality 10/16/1999 5:45 AM MASTICATOR Margot Motley MD LAB_1 Performing Organization Address City/[facility]/ZIP Code Phon e Number HP CONVERSION (ABNORMAL) Lipid Panel and Direct LDL(If Needed) (09/22/1999 10:19 AM MASTICATOR) Patholo gist Method Time Signature Length Of Fast 12.0 8.0 - 24.0 HP CONVERSION Hours Cholesterol 211 (HH) 125 - 199 HP CONVERSION mg/dL HDL Cholesterol 69 36 - 80 HP CONVERSION mg/dL Cholesterol/HDL 3.1 No normal HP CONVERSION Ratio Screen range Triglycerides 96 0 - 250 HP CONVERSION mg/dL LDL Calculated 123 66 - 129 HP CONVERSION mg/dL Comment: Fasting status adequate. Specimen (Source) Anatomical Collection Method Collection Time Re ceived Time Location / / Volume Laterality 09/22/1999 10:19 AM MASTICATOR Margot Motley MD LAB_1 Performing Organization Address [facility] Phon e Number HP CONVERSION Glucose (09/22/1999 10:19 AM MASTICATOR) P athologist Signature Length Of Fast 12.0 8.0 - 24.0 HP CONVERSION Hours Lab Glucose 80 70 - 115 HP CONVERSION mg/dL Specimen (Source) Anatomical Collection Method Collection Time Re ceived Time Location / / Volume Laterality 09/22/1999 10:19 AM MASTICATOR Margot Motley MD LAB_1 Performing Organization Address City/[facility]/ZIP Code Phon e Number HP CONVERSION (ABNORMAL) Result Conversion Dummy Order (07/21/1999 8:11 PM CDT) P athologist Signature RB pH 0.0 (LL) 7.2 - 8.0 HP CONVERSION Specimen (Source) Anatomical Collection Method Collection Time Re ceived Time Location / / Volume Laterality 07/21/1999 8:11 PM CDT Margot Motley MD LAB_1 Performing Organization Address City/[facility]/ZIP Code Phon e Number HP CONVERSION Beta Strep Followup (07/21/1999 8:11 PM CDT) P athologist Signature Strep Screen SEE TEXT HP CONVERSION Comment: Patient: RAMONA SHEIKH Rapid Strep Follow up Culture @ ? Collected: ??[id number] ??[id number] Source: Throat ?Processed: ??[id number] ??2012 Final Report ------ ?[id number] ??1254 No beta hemolytic Strep group A isolated . @ = Rapid F/U Cult Performed at [address] [place] [place] ?[address] Specimen (Source) Anatomical Collection Method Collection Time Re ceived Time Location / / Volume Laterality 07/21/1999 8:11 PM CDT Margot Motley MD LAB_1 Performing Organization Address City/[facility] Phon e Number HP CONVERSION Strep Group A Antigen Test (07/21/1999 8:11 PM CDT) Analysis Performed At [facility] Time Signature Strep Group A Negative Negative HP CONVERSION Antigen Test Comment: Culture to follow. Specimen (Source) Anatomical Collection Method Collection Time Re ceived Time Location / / Volume Laterality 07/21/1999 8:11 PM CDT Margot Motley MD LAB_1 Performing Organization Address City/[facility] Code Phon e Number HP CONVERSION Strep Group A Antigen Test (07/19/1999 3:52 PM CDT) Analysis Performed At [facility] Time Signature Strep Group A Negative Negative HP CONVERSION Antigen Test Comment: Culture to follow. Specimen (Source) Anatomical Collection Method Collection Time Re ceived Time Location / / Volume Laterality 07/19/1999 3:52 PM CDT Danish Woods MD LAB_1 Performing Organization Address City/State/ZIP Code Phon e Number HP CONVERSION Beta Strep Followup (07/19/1999 3:52 PM CDT) P athologist Signature Strep Screen SEE TEXT HP CONVERSION Comment: Patient: RAMONA SHEIKH Rapid Strep Follow up Culture @ ? Collected: ??[id number] ??[id number] Source: Throat ?Processed: ??[id number] ??[id number] Final Report ------ ?[id number] ??[id number] No beta hemolytic Strep group A isolated . @ = Rapid F/U Cult Performed at [address] [place] ?[address] Specimen (Source) Anatomical Collection Method Collection Time Re ceived Time Location / / Volume Laterality 07/19/1999 3:52 PM CDT Danish Woods MD LAB_1 Performing Organization Address City/[facility] Phon e Number HP CONVERSION MM Mammogram Screening W CAD (06/02/1999 7:20 PM CDT) Anatomical Region Laterality Modality Breast Bilateral Mammography Specimen (Source) Anatomical Location Collection Method / Collectio n Time Received Time / Laterality Volume Impressions 06/02/1999 7:20 PM CDT : ?NO MAMMOGRAPHIC EVIDENCE OF MALIGN FRANNY. FINDINGS: ?THE BREASTS ARE SMALLER THAN ON TH E LAST MAMMOGRAM DONE ON 01/07/98. ?THE PATIENT HAS HAD A BILATERAL BR EAST REDUCTION SINCE THAT TIME. ?ARCHITECTURE IN THE BREAST IS SIGN IFICANTLY DIFFERENT. ??TODAY'S ?STUDY SHOWS NO SUSPICIOUS MASSES A ND NO SUSPICIOUS CALCIFICATIONS. ?AN AREA OF BENIGN CALCIFICATIONS I N THE MEDIAL LEFT BREAST IS ?UNCHANGED FROM THE PREVIOUS STUDY. ??THERE ARE NO SUSPICIOUS MASSES ?AND NO SUSPICIOUS CALCIFICATIONS. TECH-ID : ? [facility] TRANS-ID: ? QTR Narrative 06/02/1999 7:20 PM CDT SEVERITY: 1 CLINICAL DATA: ?MAMMO ROUTINE Procedure Note Vito, James Brii - 12/06/2016Formattin g of this note might be different from the original. SEVERITY: 1 CLINICAL DATA: MAMMO ROUTINE IMPRESSION : NO MAMMOGRAPHIC EVIDENCE OF MALIGNANCY. FINDINGS: THE BREASTS ARE SMALLER THAN ON THE LAS T MAMMOGRAM DONE ON 01/07/98. THE PATIENT HAS HAD A BILATERAL BREAST REDUCTION SINCE THAT TIME. ARCHITECTURE IN THE BREAST IS SIGNIFICA NTLY DIFFERENT. TODAY'S STUDY SHOWS NO SUSPICIOUS MASSES AND NO SUSPICIOUS CALCIFICATIONS. AN AREA OF BENIGN CALCIFICATIONS IN THE MEDIAL LEFT BREAST IS UNCHANGED FROM THE PREVIOUS STUDY. THER E ARE NO SUSPICIOUS MASSES AND NO SUSPICIOUS CALCIFICATIONS. TECH-ID : [facility] TRANS-ID: QTR Margot Motley MD RAD [facility] CT Maxface WO IV Cont (01/21/1999 4:45 PM CDT) Anatomical Region Laterality Modality Head Other Specimen (Source) Anatomical Location Collection Method / Collectio n Time Received Time / Laterality Volume Impressions 01/21/1999 4:45 PM CDT : ?NORMAL CT SCAN OF THE SINUS AND TH E OSTEOMEATAL COMPLEXES. FINDINGS: ?DIRECT CORONAL CT SCAN OF THE SINU SES WAS OBTAINED. ??THE ?SINUSES ARE NORMALLY AERATED. ??NO MUCOSAL THICKENING OR ?FLUID LEVEL IS SEEN. ??THE OSTEOME ATAL COMPLEXES ARE PATENT ?BILATERALLY. ??THE NASAL SEPTUM IS IN MIDLINE. TECH-ID : ? 21 TRANS-ID: ? CRB Narrative 01/21/1999 4:45 PM CDT CLINICAL DATA: ?SINUS/ CHRONIC SINUSITIS ?P/XR/PN Procedure Note Avel Gupta MD - 12/06/2016 CLINICAL DATA: SINUS/ CHRONIC SINUSITIS P/XR/PN IMPRESSION : NORMAL CT SCAN OF THE SINUS AND THE OST EOMEATAL COMPLEXES. FINDINGS: DIRECT CORONAL CT SCAN OF THE SINUSES W OBTAINED. THE SINUSES ARE NORMALLY AERATED. NO MUCOSA L THICKENING OR FLUID LEVEL IS SEEN. THE OSTEOMEATAL CO MPLEXES ARE PATENT BILATERALLY. THE NASAL SEPTUM IS IN MID LINE. TECH-ID : 21 TRANS-ID: CRB Margot Motley MD RAD CT Pathology Report (03/21/1998 2:20 PM CDT) [facility] Method Time Signature Surgical SEE TEXT No normal HP CONVERSION Pathology range Comment: Patient: RAMONA SHEIKH ?S URGICAL PATHOLOGY REPORT Pathology # ??[id number] ?Date Obtained: ? 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 ?Socorro Sylvester M.D. ?(electronic signature) ENM/ENM/amf Date of Report: 03/25/98 Pathology # ??[id number] ?Date Obtained: ? Date Received: ORGAN/TISSUE SITE: ?Left leg, back of thigh GROSS DESCRIPTION: ?The specimen is designated biopsy of a skin lesion from the back of the ?left thigh region. It consists of a shave biopsy of a hyperkeratotic ?papular skin lesion, which measure s approximately 3 mm in diameter and up ?to 1 mm in thickness. ?The entire specimen is submitted f or microscopic examination. RAB/djp MICROSCOPIC DESCRIPTION: ?This hyperkeratotic papular skin l esion is a benign verrucoid squamous ?keratosis. Specimen (Source) Anatomical Collection Method Collection Time Re ceived Time Location / / Volume Laterality 03/21/1998 2:20 PM CDT Margot Motley MD LAB_1 Performing Organization Address City/State/ZIP Code Phon e Number HP CONVERSION XR Os [place] (03/12/1998 12:57 PM CDT) Anatomical Region Laterality Modality Other Specimen (Source) Anatomical Location Collection Method / Collectio n Time Received Time / Laterality Volume Narrative 03/12/1998 12:57 PM CDT CLINICAL DATA: ?PAIN L HEAL LIMPING FINDINGS: ?NO FRACTURE IS SEEN. ??A SMALL INF ERIOR CALCANEAL SPUR IS ?NOTED. ??THERE IS ALSO SOME MILD S PUR-LIKE CHANGE SEEN ALONG ?THE POSTERIOR CALCANEUS IN THE ARE A OF ATTACHMENT OF THE ?ACHILLES TENDON. ??THE FILMS ARE O THERWISE UNREMARKABLE. TECH-ID : ? AND TRANS-ID: ? SKA Procedure Note Balbir Licona - 12/06/2016 CLINICAL DATA: PAIN L HEAL LIMPING FINDINGS: NO FRACTURE IS SEEN. A SMALL INFERIOR C ALCANEAL SPUR IS NOTED. THERE IS ALSO SOME MILD SPUR-LIK E CHANGE SEEN ALONG THE POSTERIOR CALCANEUS IN THE AREA OF ATTACHMENT OF THE ACHILLES TENDON. THE FILMS ARE OTHERWIS E UNREMARKABLE. TECH-ID : AND TRANS-ID: SKA Danish Woods MD RAD GD MM Mammogram Screening W CAD (01/07/1998 6:00 PM CDT) Anatomical Region Laterality Modality Breast Bilateral Mammography Specimen (Source) Anatomical Location Collection Method / Collectio n Time Received Time / Laterality Volume Narrative 01/07/1998 6:00 PM CDT SEVERITY: 1 CLINICAL DATA: ?ROUTV MAMMO FINDINGS: ?BOTH BREASTS HAVE A [id number] RKED DEGREE OF OVERALL ?DENSITY. ??THERE IS ASYMMETRICAL D ENSITY IN THE LEFT UPPER ?CENTRAL BREAST AT 12 O'CLOCK, WHIC H HAS NOT CHANGED FROM ?PRIOR STUDY 01/09/97. ??THIS WAS ALS O REPORTEDLY UNCHANGED A ?YEAR AGO FROM FILMS AT [facility] IN 1992. ??THERE IS NO ?EVIDENCE OF MALIGNANCY AND A ONE-Y EAR FOLLOW-UP MAMMOGRAM IS ?RECOMMENDED. TECH-ID : ? VA TRANS-ID: ? SL Procedure Note Margot Jackson MD - 12/06/2016Fo rmatting of this note might be different from the original. SEVERITY: 1 CLINICAL DATA: ROUTV MAMMO FINDINGS: BOTH BREASTS HAVE A [id number]-NPAYSO DEGREE OF OVERALL DENSITY. THERE IS ASYMMETRICAL DENSITY IN THE LEFT UPPER CENTRAL BREAST AT 12 O'CLOCK, WHICH HAS NOT CHANGED FROM PRIOR STUDY 01/09/97. THIS WAS ALSO REPOR TEDLY UNCHANGED A YEAR AGO FROM FILMS AT [facility] IN 1992. THERE IS NO EVIDENCE OF MALIGNANCY AND A ONE-YEAR F OLLOW-UP MAMMOGRAM IS RECOMMENDED. TECH-ID : VA TRANS-ID: SL Margot Motley MD RAD VESNA (ABNORMAL) Cholesterol (Total) (12/17/1997 5:10 PM MASTICATOR) Patholo gist Method Time Signature Length Of Fast 1.0 (LL) 12.0 - HP CONVERSION 24.0 Hours Cholesterol 211 (HH) 125 - 199 HP CONVERSION mg/dL Specimen (Source) Anatomical Collection Method Collection Time Re ceived Time Location / / Volume Laterality 12/17/1997 5:10 PM MASTICATOR Margot Motley MD LAB_1 Performing Organization Address City/State/ZIP Code Phon e Number HP CONVERSION Potassium (12/17/1997 5:10 PM MASTICATOR) athologist Signature Potassium 4.0 3.5 - 5.2 HP CONVERSION mmol/L Specimen (Source) Anatomical Collection Method Collection Time Re ceived Time Location / / Volume Laterality 12/17/1997 5:10 PM MASTICATOR Margot Motley MD LAB_1 Performing Organization Address City/[facility]/ZIP Code Phon e Number HP CONVERSION Sodium (12/17/1997 5:10 PM MASTICATOR) athologist Signature Sodium 139 137 - 147 HP CONVERSION mmol/L Specimen (Source) Anatomical Collection Method Collection Time Re ceived Time Location / / Volume Laterality 12/17/1997 5:10 PM MASTICATOR Margot Motley MD LAB_1 Performing Organization Address City/State/ZIP Code Phon e Number HP CONVERSION HDL Cholesterol (12/17/1997 5:10 PM MASTICATOR) athologist Signature HDL Cholesterol 61 36 - 80 HP CONVERSION mg/dL Specimen (Source) Anatomical Collection Method Collection Time Re ceived Time Location / / Volume Laterality 12/17/1997 5:10 PM MASTICATOR Margot Motley MD LAB_1 Performing Organization Address City/State/ZIP Code Phon e Number HP CONVERSION Hemoglobin, Blood (12/17/1997 5:10 PM MASTICATOR) athologist Signature Hemoglobin 15.1 11.8 - 15.5 HP CONVERSION gm/dL Comment: PLEASE FAX ALL RESULTS TO PSYCHIATRIC AT [phone] Specimen (Source) Anatomical Collection Method Collection Time Re ceived Time Location / / Volume Laterality 12/17/1997 5:10 PM MASTICATOR Margot Motley MD LAB_1 Performing Organization Address City/State/ZIP Code Phon e Number HP CONVERSION Thyroid Stimulating Hormone (12/17/1997 5:10 PM MASTICATOR) P athologist Signature Thyroid 1.65 0.20 - HP CONVERSION Stimulating 5.50 Hormone mIU/mL Specimen (Source) Anatomical Collection Method Collection Time Re ceived Time Location / / Volume Laterality 12/17/1997 5:10 PM MASTICATOR Margot Motley MD LAB_1 Performing Organization Address City/State/ZIP Code Phon e Number HP CONVERSION MR Cervical Spine WO IV Cont (12/11/1997 4:45 PM MASTICATOR) Anatomical Region Laterality Modality Spine, C-Spine, Neck, Vascular Other Specimen (Source) Anatomical Location Collection Method / Collectio n Time Received Time / Laterality Volume Impressions 12/11/1997 4:45 PM MASTICATOR : ?MILD BULGING DISC AT THE C4-5 AND END-PLATE SPURRING AT ?THE C3-4. ?NO HERNIATED DISC OR NEURAL FORAMI NAL STENOSIS. FINDINGS: ?THE T1 AND FFE SAGITTAL AND AXIAL IMAGES OF THE CERVICAL ?SPINE WERE OBTAINED. ?C4-5: ??MILD BROAD-BASED BULGING D ISC SEEN. ??NO FOCAL DISC ?HERNIATION. ??THE SPINAL CORD IS B MATHIEU IMPINGED. ??THE NEURAL ?FORAMINA ARE NORMAL. ??NO ABNORMAL CORD SIGNAL. ?C3-4: ??MILD END-PLATE SPURRING NO ROCÍO. ??OTHERWISE NO DISC ?HERNIATION. ??THE SPINAL CORD IS N ORMAL WITHOUT IMPINGEMENT. ?THE NEURAL FORAMINA ARE NORMAL. ?THE OTHER DISC SPACES ARE UNREMARK ABLE. ??THE SPINAL CORD IS ?NORMAL DOWN TO T4. ??THE CRANIOCER VICAL JUNCTION APPEARS ?NORMAL. TECH-ID : ? JGT TRANS-ID: ? KFM Narrative 12/11/1997 4:45 PM MASTICATOR CLINICAL DATA: ?CERV/RT RADIC ?P/XR/PN Procedure Note Avel Gupta MD - 12/06/2016 CLINICAL DATA: CERV/RT RADIC P/XR/PN IMPRESSION : MILD BULGING DISC AT THE C4-5 AND END-P LATE SPURRING AT THE C3-4. NO HERNIATED DISC OR NEURAL FORAMINAL S TENOSIS. FINDINGS: THE T1 AND FFE SAGITTAL AND AXIAL IMAGE S OF THE CERVICAL SPINE WERE OBTAINED. C4-5: MILD BROAD-BASED BULGING DISC SEE N. NO FOCAL DISC HERNIATION. THE SPINAL CORD IS BARELY I MPINGED. THE NEURAL FORAMINA ARE NORMAL. NO ABNORMAL CORD S IGNAL. C3-4: MILD END-PLATE SPURRING NOTED. OT HERWISE NO DISC HERNIATION. THE SPINAL CORD IS NORMAL W ITHOUT IMPINGEMENT. THE NEURAL FORAMINA ARE NORMAL. THE OTHER DISC SPACES ARE UNREMARKABLE. THE SPINAL CORD IS NORMAL DOWN TO T4. THE CRANIOCERVICAL J UNCTION APPEARS NORMAL. TECH-ID : JGT TRANS-ID: KFM Margot Motley MD RAD MRI MM Mammogram Diag Bilat W CAD (01/09/1997 7:20 PM CDT) Anatomical Region Laterality Modality Breast Bilateral Mammography Specimen (Source) Anatomical Location Collection Method / Collectio n Time Received Time / Laterality Volume Narrative 01/09/1997 7:20 PM CDT SEVERITY: 1 CLINICAL DATA: ?ROUTINE FINDINGS: ?BOTH BREASTS HAVE A MODERATE TO MA RKED DEGREE OF OVERALL ?DENSITY. ??THERE IS A FOCAL DENSIT Y IN THE CENTRAL PORTION OF ?THE LEFT BREAST. ??THIS WAS ALSO P RESENT AND IS UNCHANGED ?FROM 01/06/93, FILMS DONE AT [facility] IN [place], [place]. ?THERE IS NO EVIDENCE FOR MALIGNANC Y AND NO OTHER CHANGES ?FROM THAT TIME. ??ROUTINE FOLLOW U P IS RECOMMENDED. TECH-ID : TRANS-ID: ? Procedure Note Margot Jackson MD - 12/06/2016Fo rmatting of this note might be different from the original. SEVERITY: 1 CLINICAL DATA: ROUTINE FINDINGS: BOTH BREASTS HAVE A MODERATE TO MARKED DEGREE OF OVERALL DENSITY. THERE IS A FOCAL DENSITY IN TH E CENTRAL PORTION OF THE LEFT BREAST. THIS WAS ALSO PRESENT AND IS UNCHANGED FROM 01/06/93, FILMS DONE AT [facility] IN [place], [place]. THERE IS NO EVIDENCE FOR MALIGNANCY AND NO OTHER CHANGES FROM THAT TIME. ROUTINE FOLLOW UP IS RE COMMENDED. TECH-ID : TRANS-ID: FABIO Margot Motley MD RAD [facility] documented in this encounter Visit Diagnoses Not on filedocumented in this encounter Care Teams Pole Frame Construction Worker Relationship Specialty Start Date End Date Titus Medina MD PCP - General 09/16/1996 03/17/15 documented as of this encounter
--- OUTSIDE RECORDS SUMMARY | 2022-07-30 19:51 | XMS_ITS | Encounter Summary ---
:1945 Author Organization [employer] Address [address] [place] [address] Care Team Providers Name Role Phone Titus Medina MD Primary Care Provider Encounter Details Date Type Department Care Team Description 07/22/1995 Office Visit [facility] Yahir Trivedi MD Chronic rhinitis [address] [facility] [address] [place], [place] [address] [place] [address] [phone] (Wo rk) Social History Tobacco Use Types Packs/Day Years Used Date Smoking Tobacco: Never Assessed Sex Assigned at Date Recorded Not on file documented as of this encounter Consult Notes Yahir Trivedi MD - 07/22/1995 12:00 AM CDTS: The patient is 49-year-old, referred by Dr. Mcknight, [facility]. She has a history since the early of year around nasal congestion as well as over time noticing that the whites of her eyes tend to be red and to some degree itchy, with superimposed episodes of increased congestion, headaches, fever, green mucoid drainage, for which she is on antibiotic therapy. How frequent these episodes have occurred is not clear. The last time she was treated at [facility] as best I can determine was in November. She says she has been treated also when she has been out of town. She seemed to think she has had gli-tq-gblxj episodes per year. No history of associated asthmatic symptoms, nor history of atopic dermatitis. Benadryl 1 b.i.d. or in the a.m. and 2 at bedtime is felt to be somewhat helpful. Last does was about one week ago. Claretin D, taken once, was felt to be even more effective. Dimetapp has also helped. Benadryl is associated with some drowsiness. Is on estrogen/progesterone. No history of urticaria. No history of adverse reactivity to bee stings. No known drug allergies. Family History - father said to have had hayfever. Environmental History - [place]-year-old house, [place], [place] she has resided for 5+ years. Forced air heating, central air conditioning. Carpeting in bedroom, foam/down pillows. Two dogs, with which no symptoms have been noted. Nonsmoker. No smokers in her household. Past medical history includes breast biopsy January,, diagnosis fibrocystic changes. History of . O: Height 170 cm, weight 85 kg. Spirometry - FVC 4.00 (3.47), FEV1 3.00 (2.82), MMEF 2.03 (2.60) (by review of spirometry curve, technique was good but suboptimal). Physical Exam: Ears - TMs without fluid or erythema. Eyes - conjunctiva mildly injected. Nose -mild mucosal erythema and bilateral congestion, without exudate or polyp. Pharynx - clear. Lungs - clear. Skin - some acne or acne-like lesions. Lesion on the left upper arm which was raised, erythematous and approximately 1 cm in diameter. Additional History - She has had the same degree of symptoms when she lived in [place] as compared to when symptoms first started in the early 1980s in [place], and currently. No noted provocative factors for symptoms. Skin Tests by Prick Method - negative to cat, dog, feather mix, housedust mites, trees, grasses, ragweed, molds with appropriate response to controls. 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 Pathophysiology as best known of vasomotor rhinitis was discussed in lay terms. Also, treatment modalities of potential benefit. I currently recommended Beconase 2 sprays in each nostril b.i.d., trial for two weeks. If helpful, she will continue it. If not she will discontinue it. Entex LA q. a.m., Ornade 1 p.o. q. p.m., on a p.r.n. or regular basis. How these medications work, and how to take them was discussed. Follow up visit to be scheduled for three months, which would be fine at the Clinic on a Wednesday. I gave her a card with phone numbers for both here and at [facility]; I asked her to call in the interim for questions or difficulties. Potential adverse effects of the medications were reviewed, and that should she experience epistaxis or nasal irritation from the Beconase I wish her to discontinue it and call. Screening nasal smear was done today, although only a small amount of mucous was able to be obtained. P: Thank you for this referral. cc: Stephan Mcknight MD documented in this encounter Plan of Treatment Not on filedocumented as of this encounter Visit Diagnoses Diagnosis Chronic rhinitis documented in this encounter Care Teams Wooden Barrel Mechanic Relationship Specialty Start Date End Date Titus Medina MD PCP - General 09/16/1996 03/17/15 documented as of this encounter
--- OUTSIDE RECORDS SUMMARY | 2022-07-30 19:51 | XMS_ITS | Encounter Summary ---
:1945 Author Organization [facility] Address [address] [place] [id number] Care Team Providers Name Role Phone Titus Medina MD Primary Care Provider Encounter Details Date Type Department Care Team Description 09/07/1994 Office Visit Urgent Care Titus Medina MD Acute sinusitis, [place] [address] [place] [address] [place], [place] [id number] Social History Tobacco Use Types Packs/Day Years Used Date Smoking Tobacco: Never Assessed Sex Assigned at Date Recorded Not on file documented as of this encounter Plan of Treatment Not on filedocumented as of this encounter Visit Diagnoses Diagnosis Acute sinusitis, unspecified documented in this encounter Care Teams Action Installer Relationship Specialty Start Date End Date Titus Medina MD PCP - General 09/16/1996 03/17/15 documented as of this encounter
--- OUTSIDE RECORDS SUMMARY | 2022-07-30 19:51 | XMS_ITS | Encounter Summary ---
:1945 Author Organization [facility] Address [address] [place] [address] Care Team Providers Name Role Phone Titus Medina MD Primary Care Provider Encounter Details Date Type Department Care Team Description 05/07/1998 Hospital Encounter CONV METH Jey Nick MD [address] [place], [place] [phone] [address] [facility] Jey Molina MD [address] [place], [place] [phone] [place] [address] Social History Tobacco Use Types Packs/Day Years Used Date Smoking Tobacco: Never Assessed Sex Assigned at Date Recorded Not on file documented as of this encounter Procedure Notes Jey Molina MD - 05/28/1998 12:01 AM CDT OR Surgeon signed by Wikirin Print And at 09/10/99 1200 Author: Jey Molina MD Service: (none) Author Type: Physician Filed: 01/21/11 0608 Note Time: 05/28/98 0000 Status: Signed Rehanger: Jey Molina MD (Physician) [id number] OPERATIVE REPORT DATE OF PROCEDURE: 05-07-98 SURGEON: Reji Molina M.D. PREOPERATIVE DIAGNOSIS: Bilateral disabling macromastia. POSTOPERATIVE DIAGNOSIS: Bilateral disabling macromastia. PROCEDURE: 1. Right breast reduction, removal of approximately 500 g tissue. 2. Left breast reduction, removal of approximately 500 g tissue. PREOPERATIVE STATUS: The patient has been troubled by neck and shoulder strap pain for many years. The risks and benefits of doing a bilateral breast reduction were discussed at length with the patient on two separate occasions. She requested surgical intervention. The patient was brought to the preoperative area and marked for standard reduction. She was then brought to the operating room and placed in a supine position. After satisfactory general endotracheal anesthesia, the patient's chest area was prepped and draped in sterile manner. Attention was first directed to the right side. The nipple/areolar complex was de-epithelized on an inferior pedicle. The flaps were then undermined to the chest wall with a combination of a 15 blade and electrocautery. Approximately a 500 mg reduction was performed on this side and meticulous hemostasis was obtained with cautery. After hemostasis, the wound was copiously irrigated with antibiotic containing solution. The nipple/areolar complex was transposed superiorly. The paths were brought together in the midline and sewn together with a layered closure of 3-0 and 4-0 Vicryl followed by intercuticular 4-0 Monocryl. The nipple/areolar complex was sewn together with a layered closure of 3-0 and 4-0 Vicryl followed by intracuticular 5-0 Vicryl. A mirror image procedure was performed on the contralateral side. The patient tolerated the procedure well. There was no wound contamination to be expected. CROW/sct/ak, , Signed: Reji Molina M.D. MOVER Jey Molina MD - 05/07/1998 12:01 AM CDT OR Surgeon signed by Distribute Print And at 09/10/99 1200 Author: Jey Molina MD Service: (none) Author Type: Physician Filed: 01/21/11 0549 Note Time: 05/07/98 0000 Status: Signed Rehanger: Jey Molina MD (Physician) [id number] OPERATIVE REPORT DATE OF PROCEDURE: 05/07/98 SURGEON: Reji Molina M.D. PREOPERATIVE DIAGNOSIS: Bilateral macromastia. POSTOPERATIVE DIAGNOSIS: Bilateral macromastia. PROCEDURE: 1. Right breast reduction with removal of 465 gm. 2. Left breast reduction with removal of 435 gm. PREOPERATIVE STATUS OF PATIENT: The patient is a 52-year-old female who has been troubled by neck and shoulder strap pain for many years. The risks and benefits of bilateral reduction mastopexy was discussed at length with the patient on two separate occasions and she requested surgical intervention. The patient was brought to the preoperative holding room and marked for a standard inferior pedicle reduction. She was then brought to the operating room and placed in the supine position. After satisfactory general endotracheal anesthesia, her entire chest area was prepped and draped in a sterile manner. Attention was first directed towards the right-hand side. The nipple areolar complex was pedicled and the inferior pedicle was de-epithelized with a #15 blade. The remaining incisions were incised with a #15 blade. Electrocautery was used undermine the panels to the chest wall. A 465 gm resection was done with electrocautery on the right hand side. The wound was copiously irrigated with antibiotic containing solution and meticulous hemostasis was obtained with cautery. The panels were brought together in the midline and sewn together with a layered closure of 2-0, 3-0, and 4-0 Vicryl followed by intracuticular 4-0 Monocryl. The nipple areola complex was transposed superiorly and held in place with a layered closure. The skin was reapproximated with intracuticular 5-0 Vicryl. A mirror image procedure was performed on the contralateral breast. The breast had 435 gm removed. CONTINUATION OF OPERATIVE REPORT - Page 2 Steri-Strips were applied and the patient went to the recovery room with vital signs stable. CROW/sct/ngs Signed: M. Zaheer Molina M.D. MOVER documented in this encounter Miscellaneous Notes Miscellaneous - Jey Molina MD - 05/07/1998 7:20 PM CDT ICD-9-CM ICD-9-CM Narrative description Code ======== DIAGNOSES Principal: HYPERTROPHY OF BREAST 611.1 PROCEDURES Provider Date Principal: BILAT REDUCT MAMMOPLASTY 85.32 CPT4 Principal: REDUCTION OF LARGE BREAS 07572 Secondary: REDUCTION OF LARGE BREAS 55953 documented in this encounter Plan of Treatment Not on filedocumented as of this encounter Procedures Procedure Name Priority Date/Time Associated Comments Diagnosis CONVERSION DEFAULT Routine 05/07/1998 11:31 AM Caprice roldan for this INTERFACE ORDER CDT procedure ar e in the results section. documented in this encounter Results Conversion Default Interface Order (05/07/1998 11:31 AM CDT) [facility] Method Time Signature Surgical See Detail HP CONVERSION Pathology Comment: Patient: YIMI GARCIA ? SURGICAL PATHOLOGY REPORT Pathology # ??[id number] ?Date Obtained: ?Date Received: DIAGNOSIS: A\T\B)Benign fat replaced breast tissue showing fibrocystic changes and rare ? foci of dystrophic calcification, incidental to bilateral reduction ? mammoplasty. ? Jessica Smiley M.D. ? (electronic signature) RPW/RPW/bjw Date of Report: 05/08/98 Pathology # ??[id number] ?Date Obtained: ?Date Received: ORGAN/TISSUE SITE: ? Right breast tissue/Left breast t issue GROSS DESCRIPTION: A) ??The specimen consists of 459 grams of fat replaced breast tissue and skin, ? including an elongated wing-shape d piece of skin and breast tissue ? measuring 33 x 12.5 x 3.5 cm plus a few elongated pieces of benign ? appearing skin. ??The breast tiss ue includes approximately 90% fat and 10% ? rubbery whitish fibrous connectiv e tissue. ??No grossly infiltrative areas ? are seen. ??Cardiothoracic Anesthesia Technician sectio ns submitted. B) ??The specimen consists of 426 grams of skin and fibrofatty breast tissue, ? including a wing-shaped piece of tissue measuring 33 x 12 x 3.5 cm and ? some elongated pieces of skin. ?? The gross features are quite similar to ? the breast tissue described above . ??No grossly infiltrative areas are ? seen. ??Cardiothoracic Anesthesia Technician sections s ubmitted. [facility] MICROSCOPIC DESCRIPTION: A) ??The paraffin sections contain fibr ofatty breast tissue in which there are ? fibrocystic changes, associated w ith duct ectasia, microcysts up to 3 mm ? in diameter, apocrine metaplasia, and variable stromal fibrosclerosis. ? Occasional foci of dystrophic mega cification are present. ??However, no ? areas of atypical epithelial prol iferation or malignancy are seen in this ? material. B) ??These sections also include benign breast tissue with fibrocystic changes, ? showing histologic features simil ar to those described above. No areas of ? atypical epithelial proliferation or malignancy are seen. Specimen (Source) Anatomical Collection Method Collection Time Re ceived Time Location / / Volume Laterality 05/07/1998 11:31 AM CDT Jey Molina MD LAB_1 Performing Organization Address City/State/ZIP Code Phon e Number HP CONVERSION documented in this encounter Visit Diagnoses Not on filedocumented in this encounter Care Teams Terrazzo Tile Setter Relationship Specialty Start Date End Date Titus Medina MD PCP - General 09/16/1996 03/17/15 documented as of this encounter
--- OUTSIDE RECORDS SUMMARY | 2022-07-30 19:51 | XMS_ITS | Encounter Summary ---
:1945 Author Organization [facility] Address [address] [place] [address] Care Team Providers Name Role Phone Titus Medina MD Primary Care Provider Encounter Details Date Type Department Care Team Description 02/16/1994 Office Visit [facility] Pillo King MD Nonspecific abnormal [address] LINIC findings on [address] radiological or other [place], [place] the [address] breast [phone] (Wo rk) Social History Tobacco Use Types Packs/Day Years Used Date Smoking Tobacco: Never Assessed Sex Assigned at Date Recorded Not on file documented as of this encounter Plan of Treatment Not on filedocumented as of this encounter Visit Diagnoses Diagnosis Nonspecific abnormal findings on radiolo gical or other examinations of the breast documented in this encounter Care Teams Metal Bed Assembler Relationship Specialty Start Date End Date Titus Medina MD PCP - General 09/16/1996 03/17/15 documented as of this encounter
--- OUTSIDE RECORDS SUMMARY | 2022-07-30 19:51 | XMS_ITS | Encounter Summary ---
:1945 Author Organization [facility] Address [address] [place] [address] Care Team Providers Name Role Phone Titus Medina MD Primary Care Provider Encounter Details Date Type Department Care Team Description 03/17/1994 Office Visit [facility], Acute sinusitis, [address] [facility], SHOE REPAIRER HELPER, [place] [address] [facility] [phone] Social History Tobacco Use Types Packs/Day Years Used Date Smoking Tobacco: Never Assessed Sex Assigned at Date Recorded Not on file documented as of this encounter Plan of Treatment Not on filedocumented as of this encounter Visit Diagnoses Diagnosis Acute sinusitis, unspecified documented in this encounter Care Teams Metallography Teacher Relationship Specialty Start Date End Date Titus Medina MD PCP - General 09/16/1996 03/17/15 documented as of this encounter
--- OUTSIDE RECORDS SUMMARY | 2022-07-30 19:51 | XMS_ITS | Encounter Summary ---
:1945 Author Organization [facility] Address [address] [place] [address] Care Team Providers Name Role Phone Titus Mdeina MD Primary Care Provider Encounter Details Date Type Department Care Team Description 01/07/1994 Orders Only [facility] Pillo King, Routine general Radiology MD medical examination [address] [facility] [place] [address] CLINIC facility [phone] [address] [place] [address] Social History Tobacco Use Types Packs/Day Years Used Date Smoking Tobacco: Never Assessed Sex Assigned at Date Recorded Not on file documented as of this encounter Plan of Treatment Not on filedocumented as of this encounter Visit Diagnoses Diagnosis Routine general medical examination at [facility] Routine general medical examination at a [facility] care facility documented in this encounter Care Teams Business Process Lead Relationship Specialty Start Date End Date Titus Medina MD PCP - General 09/16/1996 03/17/15 documented as of this encounter
--- OUTSIDE RECORDS SUMMARY | 2022-07-30 19:51 | XMS_ITS | Encounter Summary ---
:1945 Author Organization [facility] Address [address], [place] [address] Care Team Providers Name Role Phone Titus Medina MD Primary Care Provider Encounter Details Date Type Department Care Team Description 10/08/1994 Office Visit [facility] Ana Lilia Willams MD Need for prophylactic [address] [place] [facility] vaccination and ST[address] [place] [address] [place] unspecified single [place], [place] [address] disease Social History Tobacco Use Types Packs/Day Years Used Date Smoking Tobacco: Never Assessed Sex Assigned at Date Recorded Not on file documented as of this encounter Plan of Treatment Not on filedocumented as of this encounter Visit Diagnoses Diagnosis Need for prophylactic vaccination and in oculation against unspecified single disease documented in this encounter Care Teams Floor And Wall Applier Liquid Relationship Specialty Start Date End Date Titus Medina MD PCP - General 09/16/1996 03/17/15 documented as of this encounter
--- OUTSIDE RECORDS SUMMARY | 2022-07-30 19:51 | XMS_ITS | Encounter Summary ---
:1945 Author Organization [employer] Address [address] [place] [address] Care Team Providers Name Role Phone Titus Medina MD Primary Care Provider Encounter Details Date Type Department Care Team Description 11/01/2001 Hospital Encounter CONV METH ODShawn Munroe [address] [place] [address] Social History Tobacco Use Types Packs/Day Years Used Date Smoking Tobacco: Never Assessed Sex Assigned at Date Recorded Not on file documented as of this encounter Procedure Notes Shawn Garcia MD - 11/01/2001 12:01 AM CST OR Surgeon signed by Distribute Print And at 11/02/01 0043 Author: Shawn Garcia MD Service: (none) Author Type: Physician Filed: 01/22/11 0355 Note Time: 11/01/01 1221 Status: Signed Food And Nutrition Supervisor: Shawn Garcia MD (Physician) NAME: YIMI GARCIA MR#: [id number] JOB: [id number] OPERATIVE REPORT DATE OF OPERATION: 11/01/2001 DATE OF ADMIT: 11/01/01 INDICATIONS FOR PROCEDURE: PREOPERATIVE DIAGNOSIS: Endometrial polyp plus fibroid. POSTOPERATIVE DIAGNOSIS: Endometrial polyp plus fibroid. PROCEDURE PERFORMED: Hysteroscopy with polypectomy, dilation and curettage, plus VersaPoint vaporization of polyp base. SURGEON: SHAWN GARCIA MD FINDINGS: The uterus was retroverted, was enlarged eight to nine weeks size. There were no adnexal abnormalities. Cervix was clear, descended just to the introitus with traction. Uterus sounded 9 cm. At hysteroscopy there was a sessile polyp present on the posterior fundus. Remainder of the endometrial cavity was completely clear. DESCRIPTION OF OPERATION: The patient was given IV sedation, placed in the dorsal lithotomy position, examined, and prepped and draped. A speculum was placed in the vagina. Paracervical block was given with 1% mepivacaine. Cervix was grasped with a tenaculum. Uterus was sounded. Cervix was dilated. Hysteroscope was introduced. After performing hysteroscopy, the hysteroscope was removed, polyp forceps was used, sharp curettage was performed. The hysteroscope was reinserted and the base of the polyp was still present on the posterior wall. The VersaPoint was then used to vaporize the remainder of the polyp base. Endometrial cavity was then clear. All instruments were removed. The patient tolerated the procedure well. Blood loss negligible. SHAWN GARCIA MD CC: LAKHWINDER COBB MD [facility] JATINDER DAVENPORT MD [facility] NSS:[id number] C: DOCUMENT: [id number] CULTURIST documented in this encounter Miscellaneous Notes Miscellaneous - Shawn Garcia MD - 11/01/2001 12:01 AM CST ICD-9-CM ICD-9-CM Narrative description Code ======== DIAGNOSES Principal: POLYP OF CORPUS UTERI 621.0 Secondary: MENSTRUAL DISORDER NEC 626.8 PROCEDURES Provider Date Principal: D & C NEC SHAWN GARCIA [id number] 69.09 Secondary: UTERINE LES DESTRUCT NEC SHAWN GARCIA [id number] 68.29 HYSTEROSCOPY SHAWN GARCIA [id number] 68.12 CULTURIST documented in this encounter Plan of Treatment Not on filedocumented as of this encounter Procedures Procedure Name Priority Date/Time Associated Diagnosis Comme nts SURGICAL PATHLEONARDA Routine 11/01/2001 4:23 PM Re sults for this NICOLLET RAT CULTURIST procedure are i n the results section. documented in this encounter Results Pathology Report (11/01/2001 4:23 PM RAT CULTURIST) [facility] gist Method Time Signature Surgical SEE TEXT No normal HP CONVERSION Pathology range Comment: Patient: YIMI GARCIA ?S URGICAL PATHOLOGY REPORT Pathology # ??[id number] ?Date Obtained: ? 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 ?Solomon Wilks M.D. ?(electronic signature) TRH/TRH/charli Date of Report: 11/02/01 Pathology # ??[id number] ?Date Obtained: ? Date Received: ORGAN/TISSUE SITE: ?Endometrium and endometrial polyps GROSS DESCRIPTION: ?Received in formalin is a 1.5 x 1. 0 x 0.2 cm aggregate of clotted blood ?admixed with mucus and luna-pink so ft tissue fragments, which are submitted ?in toto in 1 cassette. SLS/mjp MICROSCOPIC DESCRIPTION: ?The microscopic examination substa ntiates the diagnosis cited. Specimen (Source) Anatomical Collection Method Collection Time Re ceived Time Location / / Volume Laterality 11/01/2001 4:23 PM RAT CULTURIST Shawn Garcia MD LAB_1 Performing Organization Address City/State/ZIP Code Phon e Number HP CONVERSION documented in this encounter Visit Diagnoses Not on filedocumented in this encounter Care Teams Clipper Machine Operator Relationship Specialty Start Date End Date Titus Medina MD PCP - General 09/16/1996 03/17/15 documented as of this encounter
--- OUTSIDE RECORDS SUMMARY | 2022-07-30 19:51 | XMS_ITS | Encounter Summary ---
:1945 Author Organization [facility] Address [address] [place] [address] Care Team Providers Name Role Phone Margot Branham MD Primary Care Provider Encounter Details Date Type Department Care Team Description 02/02/1995 Orders Only Stephan Mcknight MD Social History Tobacco Use Types Packs/Day Years Used Date Smoking Tobacco: Never Assessed Sex Assigned at Date Recorded Not on file documented as of this encounter Plan of Treatment Not on filedocumented as of this encounter Visit Diagnoses Not on filedocumented in this encounter Care Teams Technical Project Lead Relationship Specialty Start Date End Date Margot Branham MD PCP - General Internal Medicine 07/04/[address] [address] documented as of this encounter
--- OUTSIDE RECORDS SUMMARY | 2022-07-30 19:51 | XMS_ITS | Encounter Summary ---
:1945 Author Organization [facility] Address [address] [place] [address] Care Team Providers Name Role Phone Titus Medina MD Primary Care Provider Encounter Details Date Type Department Care Team Description 07/20/2001 Hospital Encounter [facility] Margot Pavon MD [address] [place], [place] [address] [address] [place], [place] [phone] (Wo rk) Social History Tobacco Use Types Packs/Day Years Used Date Smoking Tobacco: Never Assessed Sex Assigned at Date Recorded Not on file documented as of this encounter Plan of Treatment Not on filedocumented as of this encounter Procedures Procedure Name Priority Date/Time Associated Diagnosis Comme nts US PELVIC (EV ONLY) Routine 07/20/2001 8:00 AM Re sults for this CDT procedure are i n the results section. US PELVIC COMPLETE Routine 07/20/2001 8:00 AM Res ults for this W EV CDT procedure are i n the results section. documented in this encounter Results US Pelvic Complete W EV (07/20/2001 8:00 AM CDT) Anatomical Region Laterality Modality Pelvis Other Specimen (Source) Anatomical Location Collection Method / Collectio n Time Received Time / Laterality Volume Impressions 07/20/2001 8:00 AM CDT : ??Moderately thickened endometrium, too thick to be consistent with an atrophic endometri um, in a patient with postmenopausal bleeding. ??Also que stion mild enlargement of the right ovary. ??This c ould be followed on a subsequent scan unless further evaluatio n is clinically indicated at this time. [facility]: 07/20/01 4:44: 51 PM Narrative 07/20/2001 8:00 AM CDT PELVIC ULTRASOUND: Patient was scanned transabdominally and transvaginally. Uterus is retroverted and measures 5.3 c m in length. ??The endometrial thickness measures 1.2 cm wh ich is mild to moderately thickened. ??The right ovary measures 4.1 x 4.9 x 3.1 cm and contains some small foci of c alcification. ??Left ovary is 1.3 x 2.0 x 3.7 cm and contains a small decompressed appearing cyst. ??No free f luid. Procedure Note Margot Pavon - 12/11/2016 PELVIC ULTRASOUND: Patient was scanned transabdominally and transvaginally. Uterus is retroverted and measures 5.3 c m in length. The endometrial thickness measures 1.2 cm wh ich is mild to moderately thickened. The right ovary me asures 4.1 x 4.9 x 3.1 cm and contains some small foci of c alcification. Left ovary is 1.3 x 2.0 x 3.7 cm and contains a small decompressed appearing cyst. No free flu id. IMPRESSION : Moderately thickened endometrium, too thick to be consistent with an atrophic endometri um, in a patient with postmenopausal bleeding. Also quest ion mild enlargement of the right ovary. This cou ld be followed on a subsequent scan unless further evaluatio n is clinically indicated at this time. [facility]: 07/20/01 4:44: 51 PM Margot Pavon MD [facility] US US Pelvic (EV Only) (07/20/2001 8:00 AM CDT) Anatomical Region Laterality Modality Pelvis Other Specimen (Source) Anatomical Location Collection Method / Collectio n Time Received Time / Laterality Volume Impressions 07/20/2001 8:00 AM CDT : ??Moderately thickened endometrium, too thick to be consistent with an atrophic endometri um, in a patient with postmenopausal bleeding. ??Also que stion mild enlargement of the right ovary. ??This c ould be followed on a subsequent scan unless further evaluatio n is clinically indicated at this time. [facility] C: 07/20/01 4:44: 51 PM Narrative 07/20/2001 8:00 AM CDT PELVIC ULTRASOUND: Patient was scanned transabdominally and transvaginally. Uterus is retroverted and measures 5.3 c m in length. ??The endometrial thickness measures 1.2 cm wh ich is mild to moderately thickened. ??The right ovary measures 4.1 x 4.9 x 3.1 cm and contains some small foci of c alcification. ??Left ovary is 1.3 x 2.0 x 3.7 cm and contains a small decompressed appearing cyst. ??No free f luid. Procedure Note Margot Pavon - 12/11/2016 PELVIC ULTRASOUND: Patient was scanned transabdominally and transvaginally. Uterus is retroverted and measures 5.3 c m in length. The endometrial thickness measures 1.2 cm wh ich is mild to moderately thickened. The right ovary me asures 4.1 x 4.9 x 3.1 cm and contains some small foci of c alcification. Left ovary is 1.3 x 2.0 x 3.7 cm and contains a small decompressed appearing cyst. No free flu id. IMPRESSION : Moderately thickened endometrium, too thick to be consistent with an atrophic endometri um, in a patient with postmenopausal bleeding. Also quest ion mild enlargement of the right ovary. This cou ld be followed on a subsequent scan unless further evaluatio n is clinically indicated at this time. [facility] C: 07/20/01 4:44: 51 PM Margot Pavon MD [facility] documented in this encounter Visit Diagnoses Not on filedocumented in this encounter Care Teams Utilization Review Nurse Relationship Specialty Start Date End Date Titus Medina MD PCP - General 09/16/1996 03/17/15 documented as of this encounter
--- OUTSIDE RECORDS SUMMARY | 2022-07-30 19:51 | XMS_ITS | Encounter Summary ---
:1945 Author Organization [employer] Address [address] [place] [address] Care Team Providers Name Role Phone Titus Medina MD Primary Care Provider Encounter Details Date Type Department Care Team Description 12/03/1995 Office Visit [facility] Yahir Trivedi MD Chronic rhinitis; [address] Dysfunction of eustachian tube [place], [place] [address] (Wo rk) Social History Tobacco Use Types Packs/Day Years Used Date Smoking Tobacco: Never Assessed Sex Assigned at Date Recorded Not on file documented as of this encounter Procedure Notes Yahir Trivedi MD - 12/03/1995 12:00 AM CSTS: She is using Beconase two sprays in each nostril twice a day, Ornade q.h.s. and either 1/2 or a whole tablet of Entex in the morning. She will occasionally take an extra dose of Beconase during the night if she feels stuffy, such as over the last 1-2 weeks. At the same time she has had some ear pressure. She is having no purulent drainage, and since last seen has had no episodes of sinusitis, about which she is quite pleased. She is not experiencing any adverse effects from the medications. O: Weight 194 lbs. BP 124/82. Ears; clear. Eyes; conjunctiva clear. Nose; mildly dry mucosa, normal color, without exudate or polyp. Pharynx; without erythema or drainage. A: Perennial non-allergic rhinitis. P: Medication refills given. I did encourage her to take Entex in full dose in the morning when she is having symptoms as currently, and we discussed that she can use Beconase up to 3 times a day as needed. We also discussed the potential use of nasal saline, and potential occasional use of the Breathe-Right nasal band-aid if she is having trouble with nasal congestion at bedtime. I asked her to return in follow-up in one year, sooner if interval questions or difficulties. cc: Yahir Trivedi MD INSTRUCTOR documented in this encounter Plan of Treatment Not on filedocumented as of this encounter Visit Diagnoses Diagnosis Chronic rhinitis Dysfunction of eustachian tube Dysfunction of Eustachian tube documented in this encounter Care Teams Ip Technology Transactions Attorney Relationship Specialty Start Date End Date Titus Medina MD PCP - General 09/16/1996 03/17/15 documented as of this encounter
--- OUTSIDE RECORDS SUMMARY | 2022-07-30 19:51 | XMS_ITS | Encounter Summary ---
:1945 Author Organization [facility] Address [address] [place] [address] Care Team Providers Name Role Phone Titus Medina MD Primary Care Provider Encounter Details Date Type Department Care Team Description 06/23/1995 Office Visit [facility] Everton Tena, VACCINE FOR INFLUENZA 205 [facility] [address] [place] [address] [place], [place] [address] Social History Tobacco Use Types Packs/Day Years Used Date Smoking Tobacco: Never Assessed Sex Assigned at Date Recorded Not on file documented as of this encounter Plan of Treatment Not on filedocumented as of this encounter Visit Diagnoses Diagnosis VACCINE FOR INFLUENZA documented in this encounter Care Teams Sign Designer Relationship Specialty Start Date End Date Titus Medina MD PCP - General 09/16/1996 03/17/15 documented as of this encounter
--- OUTSIDE RECORDS SUMMARY | 2022-07-30 19:51 | XMS_ITS | Encounter Summary ---
:1945 Author Organization [facility] Address [address] [place] [address] Care Team Providers Name Role Phone Titus Medina MD Primary Care Provider Encounter Details Date Type Department Care Team Description 07/21/1995 Office Visit [facility] Titus Medina MD Other, multiple, and Son [address] unspecified sites, 205 [place] [address] insect bite, [place] [address] nonvenomous, without mention of infection (919.4) Social History Tobacco Use Types Packs/Day Years Used Date Smoking Tobacco: Never Assessed Sex Assigned at Date Recorded Not on file documented as of this encounter Plan of Treatment Not on filedocumented as of this encounter Visit Diagnoses Diagnosis Other, multiple, and unspecified sites, insect bite, nonvenomous, without mention of infection(919.4) Other, multiple, and unspecified sites, insect bite, nonvenomous, without mention of infection documented in this encounter Care Teams Order Processing Manager Relationship Specialty Start Date End Date Titus Medina MD PCP - General 09/16/1996 03/17/15 documented as of this encounter
--- OUTSIDE RECORDS SUMMARY | 2022-07-30 19:51 | XMS_ITS | Encounter Summary ---
:1945 Author Organization [facility] Address [address] [place] [address] Care Team Providers Name Role Phone Titus Medina MD Primary Care Provider Encounter Details Date Type Department Care Team Description 02/05/1994 Office Visit Danish Sanchez DPM Follow- up examination following surge ry Social History Tobacco Use Types Packs/Day Years Used Date Smoking Tobacco: Never Assessed Sex Assigned at Date Recorded Not on file documented as of this encounter Plan of Treatment Not on filedocumented as of this encounter Visit Diagnoses Diagnosis Follow-up examination following surgery documented in this encounter Care Teams Traffic Signal Technician Relationship Specialty Start Date End Date Titus Medina MD PCP - General 09/16/1996 03/17/15 documented as of this encounter
--- OUTSIDE RECORDS SUMMARY | 2022-07-30 19:51 | XMS_ITS | Encounter Summary ---
:1945 Author Organization [facility] Address [address] [place] [address] Care Team Providers Name Role Phone Titus Medina MD Primary Care Provider Encounter Details Date Type Department Care Team Description 12/26/1993 Office Visit Danish Sanchez DPM Ingrowi ng nail Social History Tobacco Use Types Packs/Day Years Used Date Smoking Tobacco: Never Assessed Sex Assigned at Date Recorded Not on file documented as of this encounter Plan of Treatment Not on filedocumented as of this encounter Visit Diagnoses Diagnosis Ingrowing nail documented in this encounter Care Teams Motor Mechanic Relationship Specialty Start Date End Date Titus Medina MD PCP - General 09/16/1996 03/17/15 documented as of this encounter
--- OUTSIDE RECORDS SUMMARY | 2022-07-30 19:51 | XMS_ITS | Encounter Summary ---
:1945 Author Organization [facility] Address [address] [place] [address] Care Team Providers Name Role Phone Titus Medina MD Primary Care Provider Encounter Details Date Type Department Care Team Description 02/24/1995 Office Visit [facility] Stephan Mcknight Viral warts, unspecified; 205 [facility] EZIO Vera MD Benign isabel plasm of skin of trunk, except scrotum; [place] Benign neoplasm of skin of o ther and unspecified parts of face; [place] [address] Acute kenny opharyngitis (common cold) Social History Tobacco Use Types Packs/Day Years Used Date Smoking Tobacco: Never Assessed Sex Assigned at Date Recorded Not on file documented as of this encounter Progress Notes Stephan Mcknight MD - 02/24/1995 12:00 AM CDTS: This 49 year old woman has concerns about a variety of skin lesions. She has also had some fairly persistent eye and nasal symptoms for several years that she does not note a seasonal pattern with. She notes itching and tearing in the eyes and nasal discharge which is improved by Benadryl or Dimetapp. O: The left eye shows a small area of episcleritis laterally and possibly a small subconjunctival hemorrhage. No evidence of conjunctivitis. Nose shows some swollen mucosa. She has a number of skin tags around the neck which were removed with simple excision as well as several adjacent to the breasts and one on the right lower abdomen. She also has numerous seborrheic keratoses. A wart was frozen with liquid nitrogen x2 on the right index finger. A: 1)Multiple skin lesions. 2)Rhinitis allergic vs vasomotor. P: Although her present therapy seems to suffice for suppressing her symptoms, she would like to see the welt slasher. The nature of her multiple skin lesions are discussed with her. cc: Stephan Mcknight MD documented in this encounter Plan of Treatment Not on filedocumented as of this encounter Visit Diagnoses Diagnosis Viral warts, unspecified Benign neoplasm of skin of trunk, except scrotum Benign neoplasm of skin of other and uns pecified parts of face Acute nasopharyngitis (common cold) documented in this encounter Care Teams Salt Miner Relationship Specialty Start Date End Date Titus Medina MD PCP - General 09/16/1996 03/17/15 documented as of this encounter
--- OUTSIDE RECORDS SUMMARY | 2022-07-30 19:51 | XMS_ITS | Encounter Summary ---
:1945 Author Organization [facility] Address [address] [place] [address] Care Team Providers Name Role Phone Titus Medina MD Primary Care Provider Encounter Details Date Type Department Care Team Description 11/05/1994 Office Visit [facility] Ana Lilia Willams MD Allergic rhinitis, 205 [facility] CLI MUKUL cause unspecified [address] [address] [place], [place] [address] Social History Tobacco Use Types Packs/Day Years Used Date Smoking Tobacco: Never Assessed Sex Assigned at Date Recorded Not on file documented as of this encounter Plan of Treatment Not on filedocumented as of this encounter Visit Diagnoses Diagnosis Allergic rhinitis, cause unspecified documented in this encounter Care Teams Animal Tech Relationship Specialty Start Date End Date Titus Medina MD PCP - General 09/16/1996 03/17/15 documented as of this encounter
--- OUTSIDE RECORDS SUMMARY | 2022-07-30 19:51 | XMS_ITS | Encounter Summary ---
:1945 Author Organization [facility] Address [address] [place] [address] Care Team Providers Name Role Phone Titus Medina MD Primary Care Provider Encounter Details Date Type Department Care Team Description 07/28/1994 Office Visit [facility] Everton Tena, Acute sinusitis, unspecified ; 205 [facility] EZIO OLIVEROS Unspecified viral infection, in conditio ns classified elsewhere and of unspecified site; STRE[address] [place] [address] Acute upper respiratory [place] [address] [place], [place] [address] Social History Tobacco Use Types Packs/Day Years Used Date Smoking Tobacco: Never Assessed Sex Assigned at Date Recorded Not on file documented as of this encounter Progress Notes Everton Tena MD - 07/28/1994 12:00 AM CDTS: She is here for recheck. She was last seen 8 weeks ago. At that time she took Amoxicillin for ten days and did note some improvement but she reports that her sinus symptoms did not totally clear over the past 8 weeks. She currently has had some left ear pain over the past 4 days. No hearing changes or problems and no ear canal drainage. Also this week again she has face pain and some thick nose discharge and post nasal drainage and these symptoms have increased this week. She notes no coughing and no chest pain. She has occasional nausea but no vomiting. She denies any urinary symptoms. She has had temperatures up to 101 along with some myalgias and intermittent sweats. O: On exam, both TM's normal. Both ear canals normal and nontender. TM joints are nontender. There is some tenderness in the left posterior neck muscle and posterior scalp. Neck is supple with no adenopathy. Lungs clear throughout. There is mild tenderness in the epigastric area of the abdomen. There is no back, flank or CVA tenderness. A: Possible current sinus infection. History of some nose and sinus symptoms over the past 8 weeks. Also possible current viral symptoms. P: She was given Bactrim DS to take twice daily over 14 days. Continue Sudafed and analgesics as needed. I recommended adequate rest. Also recommended warm packs over the sinus areas and neck and scalp areas. If any increased symptoms or if the current symptoms are not resolving over the next 7-10 days, she should follow up. cc: Everton Tena MD documented in this encounter Plan of Treatment Not on filedocumented as of this encounter Visit Diagnoses Diagnosis Acute sinusitis, unspecified Unspecified viral infection, in conditio ns classified elsewhere and of unspecified site Acute upper respiratory infections of un specified site documented in this encounter Care Teams Rivet Thrower Relationship Specialty Start Date End Date Titus Medina MD PCP - General 09/16/1996 03/17/15 documented as of this encounter
--- OUTSIDE RECORDS SUMMARY | 2022-07-30 19:51 | XMS_ITS | Encounter Summary ---
:1945 Author Organization [facility] Address [address] [place] [address] Care Team Providers Name Role Phone Titus Medina MD Primary Care Provider Encounter Details Date Type Department Care Team Description 04/30/2000 Hospital Encounter [facility] Ángel Ashley MD [address] [facility] [place] [id number] 6[address] [facility] Ángel Hodgson MD [address] [facility] [place], [place] [address] [place] [address] Social History Tobacco Use Types Packs/Day Years Used Date Smoking Tobacco: Never Assessed Sex Assigned at Date Recorded Not on file documented as of this encounter Procedure Notes Ángel Hodgson MD - 06/14/2000 12:01 AM CDT OR Surgeon signed by Distribute Print And at 06/14/00 0836 Author: Ángel Hodgson MD Service: (none) Author Type: Physician Filed: 01/21/11 1833 Note Time: 06/14/00 0824 Status: Signed Color Developer: Ángel Hodgson MD (Physician) NAME: YIMI GARCIA MR#: [id number] JOB: [id number] OPERATIVE REPORT DATE OF OPERATION: 04/30/2000 INDICATIONS FOR PROCEDURE: PREOPERATIVE DIAGNOSIS: Left leg varicose veins. POSTOPERATIVE DIAGNOSIS: Left leg varicose veins. PROCEDURE PERFORMED: Left greater saphenous vein stripping and secondary varicose vein dissection. SURGEON: Ángel Hodgson MD. BICYCLE REPAIR TECHNICIAN: Marianela Morrissey RN, KRISTINA. FINDINGS: DESCRIPTION OF OPERATION: The patient was brought to the operating room and placed in a supine position. The patient underwent a spinal anesthetic. When this had set, the left leg was prepped with DuraPrep and draped in a sterile fashion. An incision was made in the left groin crease overlying the saphenofemoral junction. The branches of the saphenofemoral junction were ligated and divided. A counterincision was then made at the left medial knee overlying the saphenous vein at that level. This was dissected out circumferentially, ligated distally, and a venotomy was made and a stripper cable was passed from the knee to the groin without difficulty. The stripper cable was then brought out through a second venotomy in the groin after ligating the saphenofemoral junction. The vein was then attached to the stripper cable, both in the groin incision and the knee incision, and the vein was then transected at both levels, and the vein was removed in its entirety from the knee to the groin. Direct pressure was applied for hemostasis. Next, attention was turned to the secondary varicosities. These underwent sequential stab incisions with an 11-blade. Klever hooks and hemostats were then used to dissect out the vein was much as possible prior to avulsion. Once avulsed, direct pressure was once again applied for hemostasis. The stab incisions were closed with benzoin and Steri-Strips. The left medial knee incision was closed with a subcutaneous 3-0 Vicryl and interrupted nylon sutures for the skin. The groin was closed with subcutaneous 3-0 Vicryl and 4-0 Monocryl for the skin. Dry, sterile, compressive dressings were applied, and the patient returned to the recovery room in stable condition. ÁNGEL HODGSON MD MTS:[id number] C: DOCUMENT: [id number] R DIRECTOR documented in this encounter Miscellaneous Notes Miscellaneous - Ángel Hodgson MD - 04/30/2000 12:01 AM CDT ICD-9-CM ICD-9-CM Narrative description Code ======== DIAGNOSES Principal: VARICOSE VEIN OF LEG NOS 454.9 PROCEDURES Provider Date Principal: LEG VARICOS V LIGA-STRIP ÁNGEL HODGSON [id number] 38.59 documented in this encounter Plan of Treatment Not on filedocumented as of this encounter Visit Diagnoses Not on filedocumented in this encounter Care Teams Doctor Podiatric Medicine Relationship Specialty Start Date End Date Titus Medina MD PCP - General 09/16/1996 03/17/15 documented as of this encounter
--- OUTSIDE RECORDS SUMMARY | 2022-07-30 19:51 | XMS_ITS | Encounter Summary ---
:1945 Author Organization [facility] Address [address] [place] [address] Care Team Providers Name Role Phone Margot Branham MD Primary Care Provider Encounter Details Date Type Department Care Team Description 10/09/1994 Orders Only Stephan Mcknight MD Social History Tobacco Use Types Packs/Day Years Used Date Smoking Tobacco: Never Assessed Sex Assigned at Date Recorded Not on file documented as of this encounter Plan of Treatment Not on filedocumented as of this encounter Visit Diagnoses Not on filedocumented in this encounter Care Teams Lard Renderer Relationship Specialty Start Date End Date Margot Branham MD PCP - General Internal Medicine 07/04/[address] [address] documented as of this encounter
--- OUTSIDE RECORDS SUMMARY | 2022-07-30 19:51 | XMS_ITS | Encounter Summary ---
:1945 Author Organization [facility] Address [address] [place] [address] Care Team Providers Name Role Phone Titus Medina MD Primary Care Provider Encounter Details Date Type Department Care Team Description 06/04/1994 Office Visit [facility] Everton Tena, Acute sinusitis, unspecified ; 205 [facility] Conjunctivitis unspecified [address] [place] [address] [place] [address] Social History Tobacco Use Types Packs/Day Years Used Date Smoking Tobacco: Never Assessed Sex Assigned at Date Recorded Not on file documented as of this encounter Progress Notes Everton Tena MD - 06/04/1994 12:00 AM CDTS: She is a 48-year-old female who reports right eye redness and mattering today. No eye pain. She also reports a history over the past 3 weeks of thick nose discharge and post nasal drainage and facial pain. She's had occasional chills. No problems with coughing or breathing. O: On exam, right eye sclera is moderately reddened. Eyelids are normal. No evidence of foreign body on the eye or under the lids. Left eye normal. There is tenderness in both frontal and both maxillary sinus areas. Mouth and throat normal. Neck is supple with no neck adenopathy. A: 1. Right eye redness, conjunctivitis. 2. Sinus infection. P: Sulfacetamide eyedrops 3 drops QID into the right eye over the next 5 days. Also Amoxicillin 500 t.i.d. over ten days. Continue symptomatic treatment. Recheck if persisting symptoms. cc: Everton Tena MD documented in this encounter Plan of Treatment Not on filedocumented as of this encounter Visit Diagnoses Diagnosis Acute sinusitis, unspecified Conjunctivitis unspecified Conjunctivitis, unspecified documented in this encounter Care Teams Wire Brush Operator Relationship Specialty Start Date End Date Titus Medina MD PCP - General 09/16/1996 03/17/15 documented as of this encounter
--- OUTSIDE RECORDS SUMMARY | 2022-07-30 19:51 | XMS_ITS | Encounter Summary ---
:1945 Author Organization [facility] Address [address] [place] [address] Care Team Providers Name Role Phone Titus Medina MD Primary Care Provider Encounter Details Date Type Department Care Team Description 11/04/1994 Office Visit [facility] Everton Tena MD Acute pharyngitis 205 [facility] [address] [place] [address] [place] [address] Social History Tobacco Use Types Packs/Day Years Used Date Smoking Tobacco: Never Assessed Sex Assigned at Date Recorded Not on file documented as of this encounter Progress Notes Everton Tena MD - 11/04/1994 12:00 AM CSTS: She is a 49-year-old female who has a sore throat and pain with swallowing yesterday and today. No chills and no fevers and minimal nose congestion. She almost constantly has nose mild congestion and feels this is due to allergies. Her son is being treated for a bacterial throat infection currently. O: On exam, temperature 98.4. Ears TM's normal. Sinuses nontender. Throat reveals slight redness with no swelling and no exudate. The neck is supple and there is no neck adenopathy. Rapid strep is negative. A: Pharyngitis, probably viral etiology. P: Symptom treatment discussed. Recheck if increased or persisting symptoms or problems. E ACCURACY SUPERVISOR documented in this encounter Plan of Treatment Not on filedocumented as of this encounter Visit Diagnoses Diagnosis Acute pharyngitis documented in this encounter Care Teams Button Tufter Relationship Specialty Start Date End Date Titus Medina MD PCP - General 09/16/1996 03/17/15 documented as of this encounter
--- OUTSIDE RECORDS SUMMARY | 2022-07-30 19:51 | XMS_ITS | Encounter Summary ---
:1945 Author Organization [facility] Address [address] [place] [address] Care Team Providers Name Role Phone Titus Medina MD Primary Care Provider Encounter Details Date Type Department Care Team Description 12/30/1993 Office Visit [facility] Stephan Mcknight, Other insomnia; 205 [facility] EZIO OLIVEROS Unspecifie d sinusitis (chronic) [place] [address] Social History Tobacco Use Types Packs/Day Years Used Date Smoking Tobacco: Never Assessed Sex Assigned at Date Recorded Not on file documented as of this encounter Plan of Treatment Not on filedocumented as of this encounter Visit Diagnoses Diagnosis Other insomnia Insomnia, unspecified Unspecified sinusitis (chronic) documented in this encounter Care Teams Bailer Tenders Supervisor Relationship Specialty Start Date End Date Titus Medina MD PCP - General 09/16/1996 03/17/15 documented as of this encounter
--- OUTSIDE RECORDS SUMMARY | 2022-07-30 19:51 | XMS_ITS | Encounter Summary ---
:1945 Author Organization [facility] Address [address] [place] [address] Care Team Providers Name Role Phone Titus Medina MD Primary Care Provider Encounter Details Date Type Department Care Team Description 02/09/1994 Office Visit [facility] Ana Lilia Willams MD Examination of ears 205 [facility] CL MUKUL and hearing [address] [address] [place], [place] [address] Social History Tobacco Use Types Packs/Day Years Used Date Smoking Tobacco: Never Assessed Sex Assigned at Date Recorded Not on file documented as of this encounter Plan of Treatment Not on filedocumented as of this encounter Visit Diagnoses Diagnosis Examination of ears and hearing documented in this encounter Care Teams Senior Architect Relationship Specialty Start Date End Date Titus Medina MD PCP - General 09/16/1996 03/17/15 documented as of this encounter
--- OUTSIDE RECORDS SUMMARY | 2022-07-30 19:51 | XMS_ITS | Encounter Summary ---
:1945 Author Organization [facility] Address [address] [place] [address] Care Team Providers Name Role Phone Titus Medina MD Primary Care Provider Encounter Details Date Type Department Care Team Description 01/09/1994 Office Visit Danish Sanchez DPM Follow- up examination following surge ry Social History Tobacco Use Types Packs/Day Years Used Date Smoking Tobacco: Never Assessed Sex Assigned at Date Recorded Not on file documented as of this encounter Plan of Treatment Not on filedocumented as of this encounter Visit Diagnoses Diagnosis Follow-up examination following surgery documented in this encounter Care Teams Registered Land Surveyor Relationship Specialty Start Date End Date Titus Medina MD PCP - General 09/16/1996 03/17/15 documented as of this encounter
--- OUTSIDE RECORDS SUMMARY | 2022-07-30 19:52 | XMS_ITS | Clinical Summary ---
:1945 Author Organization [facility] Address [address] [place] [address] Care Team Providers Name Role Phone Elsewhere, Pcp Primary Care Provider Unavailable Source Comments Patient records contain information from all sites at [facility]. For routine questions regarding patient records, call [phone] during business hours, M-F 8:00 AM - 5:00 PM Central Time. Record requests for emergency care only can be directed to [phone] at any time.[facility] Allergies Active Allergy Reactions Severity Noted Date Comments Adhesive Tape-Silicones Rash Medium 07/05/2007 Codeine GI intolerance High 04/05/2009 Latex Rash Medium 03/16/2014 Morphine GI intolerance High 04/05/2009 Nickel Rash High 07/05/2007 Oxycodone GI intolerance 04/14/2021 Perindopril Tinnitus, Cough Medium 03/25/2018 Other reacti on(s): Cough Propofol GI intolerance High 07/03/2017 Tramadol GI intolerance 06/13/2019 Medications Medication Sig Dispensed Refills Start Date End Date Status cholecalciferol Take 2,400 mcg by 0 05/24/2015 Active (VITAMIN D3) 50 mcg mouth every (2,000 Unit) capsule morning. 2400mcg estradiol (ESTRACE) Insert 1 0 05/24/2015 Active 0.1 mg/g (0.01%) application into vaginal cream the vagina as directed. 3 times a week on the labia estradiol (ESTRING) 2 Insert 1 0 03/16/2014 Active mg (7.5 mcg /24 hour) application into vaginal ring the vagina as directed. Every 3 months L-LYSINE ORAL Take 1 tablet by 0 05/24/2015 Active mouth every morning. 1000 mg co-enzyme Q-10 Take 100 mg by 0 Active (COQ-10) 100 mg mouth every capsule morning. rosuvastatin (CRESTOR) Take 5 mg by 0 Active 5 mg tablet mouth every morning. irbesartan (AVAPRO) Take 150 mg by 0 Active 150 mg tablet mouth daily. tretinoin (RETIN-A) Apply 1 10 12/07/2018 Active 0.05 % cream application topically at bedtime. hydrocortisone Insert into the 0 11/21/2018 Active (ANUSOL-HC) 2.5 % rectum as needed. rectal cream valacyclovir HCl Take 1 tablet by 0 Active (VALTREX ORAL) mouth as needed. amoxicillin (AMOXIL) as needed. Prior 0 08/13/2020 Active 500 mg capsule to dental work. acetaminophen Take 2 tablets 160 tablet 0 09/10/2020 Active (TYLENOL) 500 mg (1,000 mg total) tablet by mouth every 6 (six) hours for 80 doses. Continue to take while requiring narcotic pain medication. Do not take more than 4000 mg in one day. Additional Information Patient not taking. Reported on 12/04/2020 alendronate (FOSAMAX) 70 mg TAKE 1 TABLET BY MOUTH 12 tablet 3 09/01/2021 Active tablet EVERY 7 DAYS ON EMPTY STOMACH. REMAIN UPRIGHT FOR AT LEAST 30 MINUTES magnesium 200 mg tablet Take 400 mg by mouth 0 Active every morning before breakfast. glucosamine-chondroitin Take 1 capsule by mouth 0 Active (GLUCOSAMINE-CHONDROITIN) 3 (three) times a day. 500-400 mg per capsule 750 mg lisinopriL (PRINIVIL,ZESTRIL) Take 1 tablet by mouth 0 03/20/2010 Active 20 mg tablet daily. triamcinolone (KENALOG) 0.1 % 0 08/15/2021 Active ointment fluconazole (DIFLUCAN) 150 mg TAKE 1 TABLET (150 MG) 0 10/13/2021 Active tablet BY MOUTH TWICE A WEEK FOR 2 DAYS nystatin (MYCOSTATIN) 100,000 APPLY 1 APPLICATION 0 10/29/2021 Active unit/gram ointment TWICE A DAY TOPICALLY CORNERS OF MOUTH ciprofloxacin (CIPRO) 500 mg TAKE 1 TABLET (500 MG) 0 10/13/2021 Active tablet BY MOUTH 2 TIMES DAILY FOR 5 DAYS docosahexaenoic acid-epa Take 1,200 mg by mouth. 0 Active 120-180 mg capsule calcium citrate (CALCITRATE) Take 1 tablet by mouth 2 0 Active 950 mg (200 mg calcium) (two) times a day. 500mg tablet polyethylene glycol (MIRALAX) Take 1 packet by mouth 0 Active 17 gram/dose oral powder daily. magnesium citrate 100 mg Take 150 mg by mouth. 0 Active capsule glucosamine/chondr castro A sod Take 1 capsule by mouth 0 Active (glucosamine-chondroitin) daily. 1,500-1,200 mg/30 mL liquid omega-3 ypk-fgg-[id number] oil Take 1 capsule by mouth 3 (three) times a day. 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 Wrinkled Ski n 07/24/2022 Ancillary Procedure 05/26/2022 Procedure visit Aesthetic Medicine Juanita Vaz Vari cose Vein Lower and Surgery R, TIMBER HEWER, C.N.P. Extremity Wi th Pain Bilateral 05/26/2022 Ancillary Procedure from Last 3 Months Immunizations Name Administration Dates Next Due DT, Pediatric 02/08/1986 DTaP, Unspecified 06/30/2017 HZV (ZOSTAVAX) 09/23/2009 HepA Adult 10/02/2003, 02/12/2003 HepB Adult 10/02/2003, 03/28/2003, 02/12/2003 Influenza TIV (IM) 07/26/2018 Lyme Disease 05/04/2001, 02/24/1999, 12/19/1998 PCV13 01/07/2015 PPSV23 11/27/2013 RZV (SHINGRIX) 06/03/2018, 03/29/2018 Rabies, Unspecified 05/01/2003, 04/10/2003, 04/03/2003 Td (Adult), adsorbed 09/22/1999 Tdap 06/30/2017, 09/24/2010, 04/28/2007 TyVi (inj) 04/28/2007, 10/02/2003 YF 05/01/2003 influenza high dose (65 years or older) 06/04/2018 (PF) Family History Medical History Relation Name Comments MVA - Motor vehicle Brother accident Coronary artery disease Father Zaheer Austin Sheikh, Sr. Hypertension Father Zaheer Austin Sheikh, Sr. Hypertension Maternal Grandmother Parul Colon cancer Mother Yamileth May Kori Cause of 2007 Hypertension Mother Yamileth May Kori Osteoporosis Mother Yamileth May Kori Coronary artery disease Paternal Grandfather Charly Hypertension Paternal Grandfather Charly Coronary artery disease Paternal Grandmother Margot Ordonez Osteoporosis Sister 1 Yesica Frost Kori Other cancer Sister 1 Yesica Frost Kori Uterine Canc er 2014 Glaucoma Sister 2 Jennifer Smileybepito Ayala Osteoporotic fracture Sister 2 Jennifer GrandaParul Jamie Parkinsonism Sister 2 Jennifer Ayala Had severe head injury at about 21 Aneurysm of head and Sister 4 Lisa neck artery Macular degeneration Sister 4 Lisa Relation Name Status Comments Brother (Age 55) Father Zaheer Avila Kori, Sr. Maternal Grandmother Parul Mother Yamileth May Kori Paternal Grandfather Charly Paternal Grandmother Margot Ordonez Sister 1 Yesica Frost Kori Alive Sister 2 Jennifer GrandaParul Reese Alive Sister 3 Alive Sister 4 Lisa Alive Social History Tobacco Use Types Packs/Day Years Used Date Smoking Tobacco: Never Smokeless Tobacco: Never Alcohol Use Standard Drinks/Week Comments Yes 7 (1 standard drink = 0.6 oz pure alcoho l) Caffeine 2-3 servings daily Alcohol Habits Answer Date Recorded How often do you have a drink containing alcohol? 2-3 times a week 01/28/2021 How many drinks containing alcohol do you have on a 1 or 2 01/28/2021 typical day when you are drinking? How often do you have six or more drinks on one Never 01/28/2021 occasion? Social Isolation Answer Date Recorded In a typical week, how many times do you More than three tomasz es a week 01/28/2021 talk on the phone with family, friends, or neighbors? How often do you get together with friends Twice a week 01/28/2021 or relatives? How often do you attend latter-day or More than 4 times per year 01/28/2021 restoration services? Do you belong to any clubs or Yes 01/28/2021 organizations such as latter-day groups, unions, fraternal or athletic groups, or school groups? How often do you attend meetings of the 1 to 4 times per yea r 01/28/2021 clubs or organizations you belong to? Are you now , , , 01/28/2021 , never or living with a partner? Physical Activity Answer Date Recorded On average, how many days per week do you engage in moderate to 6 days 01/28/2021 strenuous exercise (like walking fast, running, jogging, dancing, swimming, biking, or other activities that cause a light or heavy sweat)? On average, how many minutes do you engage in exercise at th is 40 min 01/28/2021 level? Stress Answer Date Recorded Do you feel stress - tense, restless, nervous, or anxious, N ot at all 01/28/2021 or unable to sleep at night because your mind is troubled all the time - these days? Financial Resource Strain Answer Date Recorded How hard is it for you to pay for the very basics like Not h waqar at all 01/28/2021 food, housing, medical care, and heating? Food Insecurity Answer Date Recorded Within the past 12 months, you worried that your food would Never true 01/28/2021 run out before you got money to buy more. Within the past 12 months, the food you bought just didn't N ever true 01/28/2021 last and you didn't have money to get more. Transportation Needs Answer Date Recorded In the past 12 months, has lack of transportation kept you f rom No 01/28/2021 medical appointments or from getting medications? In the past 12 months, has lack of transportation kept you f rom No 01/28/2021 meetings, work, or getting things needed for daily living? Housing Stability Answer Date Recorded In the last 12 months, was there a time when you were not ab le No 01/28/2021 to pay the mortgage or rent on time? In the last 12 months, how many places have you lived? 1 01/28/2021 In the last 12 months, was there a time when you did not hav e a No 01/28/[address] sleep or slept in a long term (including now)? Education Answer Date Recorded What is the highest level of school Master's degree (e.g., Jody Almonte, MS, 03/30/2019 you have completed or the highest Armando, MEd, [employer]DI[employer], ALL) degree you have received? 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 [address] [place] [phone] (Charlotte bentley) 09/08/2022 Comprehensive Visit Aesthetic Medicine and Lucero Pritchard, Surgery M.Norma, Ph.D. [address] [place] [phone] (Wo rk) Health Maintenance Due Date Last Done Comments CT Colonography 1945 Cologuard 1945 Hepatitis C Screening 1945 Office Visit for Blood Pressure 08/01/2021 08/01/2020 Check / Re-check Depression Screening (Annual 10/04/2021 PHQ-2) Influenza Vaccine (#1) 2022 07/20/2021, 06/14/2020, 07/12/2019, Additional history exists Mammogram 11/13/2022 11/13/2021, 09/10/2020, 09/05/2019, Additional history exists Creatinine Level 04/24/2023 04/24/2022, 10/13/2021, 05/16/2020, Additional history exists Potassium Level 04/24/2023 04/24/2022, 10/13/2021, 06/22/2018 Sodium Level 04/24/2023 04/24/2022, 10/13/2021, 06/22/2018 Fasting Glucose for Diabetes 04/24/2025 04/24/2022, 022, Screening 05/16/2020, Additional history exists Colonoscopy 07/01/2025 07/01/2020, 07/01/2020, 07/01/2020, Additional history exists Colorectal Cancer Surveillance 07/01/2025 Lipid (Cholesterol) Screening 10/30/2026 10/30/2021, 2019, 04/10/2019, Additional history exists DTaP,Tdap,and Td Vaccines (6 - Td 06/30/2027 06/30/2017, , or Tdap) 09/24/2010, Additional history exists Hepatitis B Vaccines Completed 10/02/2003, 03/28/2003, 02/12/2003 Zoster Vaccines Completed 06/03/2018, 03/29/2018, 09/23/2009 Pneumococcal vaccine (65+ years) Completed 10/30/2021, 03/2015, 11/27/2013 Fall Risk Screen (Annual) Completed 11/04/2021 COVID-19 Vaccine Completed 07/17/2022, 01/03/2022, 09/02/2021, Additional history exists Medical Devices Implanted Type Area Residential Framing Carpenter Device Shelf Model / Identifier Expiration Serial / Date Lot Cmnt Bn Hi Visc Pmma 40 - [id number] Bone Cement Left: [place] 6191-1-001 / Implanted: Qty: 1 on 09/11/2020 by Ángel Quesada M.D. at [facility] Hip / Hip Scrw Emp Acet 6.5x35 - [id number] Hardware Left: DJO Globa l 07/30/2026 [id number] / Implanted: Qty: 1 on 09/11/2020 by Ángel Quesada M.D. at [facility] e.g. Hip / pins/screws/ [id number] rods Hip Implant Hip Implant Hip Description: Right Hip Replacement Hip Head Delta Cer 36mm, Neut - [id number] Hip Implant Left: Hip Encore 07/09/2025 [id number] / Implanted: Qty: 1 on 09/11/2020 by Ángel Quesada M.D. at [facility] Medical Cherie / [id number] Ocular Lens-07/05/2018 Ocular Lens Bilateral: Implanted: 07/05/2018 (Quantity not on file) Eye Bladder Stimulator-05/19/2011 Sacral Nerve Bladder [id number] / Implanted: Qty: 1 on 05/19/2011 Stimulator [id number] / Stimulator Other Stimulator Other Bladder Procedures Procedure Name Priority Date/Time Associated Comments Diagnosis SCLEROTHERAPY Routine 07/24/2022 8:45 AM Varicose Vein Lower R esults for this CDT Extremity With Pain procedur e are in Bilateral the results section. VASCULAR IMAGE EXAM Routine 07/24/2022 12:00 AM R esults for this CDT procedure are i n the results section. SCLEROTHERAPY Routine 05/26/2022 3:32 PM Varicose Vein Lower R esults for this CDT Extremity With Pain procedur e are in Bilateral the results section. VASCULAR IMAGE EXAM Routine 05/26/2022 12:00 AM R esults for this CDT procedure are i n the results section. from Last 3 Months Results Sclerotherapy (07/24/2022 8:45 AM CDT) Narrative MMODAL - 07/24/2022 8:45 AM CDT Juanita Vaz, CLAUDIA, C.N.P. ? 07/24/2022 ??2:02 PM Sclerotherapy Performed by: Juanita Vaz APRN C. N.P. Authorized by: Juanita Vaz APRN C .N.P. Care team members present 1. Juanita Vaz APRN, C.NAnaliP. PROCEDURE DETAILS Sclerosant: polidocanol Polidocanol concentration: 1% (0.1% inje cting a total of 32 cc) Needle gauge: 30g VeinLite used: yes ?? All reticular veins were injected once b lood return was verified: yes ?? All telangiectasias were injected slowly upon entering the skin: yes ?? Injections were stopped at the first sig n of bleb formation or lack of progression of vein blanching: yes ?? Each site was vigorously rubbed for 3-5 seconds after completion of injection: yes ?? CONSENT Consent obtained: verbal Consent given by: patient The benefits, risks and alternatives to the procedure and the potential need for sedation or anesthesia as well as the names, roles, and responsibilities of healthcare team memb ers performing significant interventional tasks were discussed with the patient and/or decision maker. UNIVERSAL PROTOCOL All relevant documentation and testing w ere reviewed and available. All required blood products, implants, devic es and or special equipment were made available as applicable. Pre-proced ure verification was conducted and the correct site was marked if required. A fire risk assessment was done as applicable. The procedural time-out t o verify correct patient, correct side/site, and procedure was conducted p rior to performing the procedure and confirmed in a procedural pause. PRE-PROCEDURE DETAILS Indications: symptomatic varicosities Appropriate hand hygiene, gown, cap, mas k, protective eyewear, sterile gloves, skin preparation, sterile drape, and strict aseptic technique were utilized as applicable for the procedure : yes ?? Skin preparation: alcohol SEDATION / ANESTHESIA Anesthesia method: none LOCATION Treated vein: varicosities. Aspect: medial, posterior and lateral Site: calf, knee and thigh Laterality: bilateral POST-PROCEDURE DETAILS Number of veins treated: 2 or more Pressure compression garments applied po st-operatively: yes ?? Procedure completed successfully: yes ?? Complications: no apparent complications COMMENTS Visual sclerotherapy performed for sympt omatic varicose veins with pain. Gradual improvement of symptoms noted. N o complications incurred. Juanita Vaz APRN C.N.P. PROCEDURE/MINOR SURGICAL ORDERABLES Performing Organization Address City/State/ZIP Code Phon e Number MMODAL MMODAL NA [facility] Image Exam (07/24/2022 12:00 AM CDT)Only the most recent of2 resultswithin the time period is included. Specimen (Source) Anatomical Location Collection Method / Collectio n Time Received Time / Laterality Volume Narrative IIMS - 07/24/2022 11:51 AM CDT This order has been created and auto-finalized to support the import of images acquired without order. The clini mega documentation to support these images can be found on the encounter kori t produced images. Provider Not In System IMG NON RAD IMAGING PROCEDUR ES Performing Organization Address City/State/ZIP Code Phon e Number IIMS IIMS NA Sclerotherapy (05/26/2022 3:32 PM CDT) Narrative MMODAL - 05/26/2022 3:32 PM CDT Juanita Vaz APRN C.N.P. ? 05/26/2022 ??3:35 PM Sclerotherapy Date/Time: 05/26/2022 3:32 PM Performed by: Juanita Vaz APRN, C. N.P. Authorized by: Juanita Vaz APRN, C .N.P. Care team members present 1. Juanita Vaz APRN, C.N.P. PROCEDURE DETAILS Sclerosant: polidocanol Polidocanol concentration: 1% (0.1% inje cting a total of 38 cc) Needle gauge: 30g VeinLite used: no ?? All reticular veins were injected once b lood return was verified: yes ?? All telangiectasias were injected slowly upon entering the skin: yes ?? Injections were stopped at the first sig n of bleb formation or lack of progression of vein blanching: yes ?? Each site was vigorously rubbed for 3-5 seconds after completion of injection: yes ?? CONSENT Consent obtained: written PRE-PROCEDURE DETAILS Indications: symptomatic varicosities Appropriate hand hygiene, gown, cap, mas k, protective eyewear, sterile gloves, skin preparation, sterile drape, and strict aseptic technique were utilized as applicable for the procedure : yes ?? Skin preparation: alcohol SEDATION / ANESTHESIA Anesthesia method: none LOCATION Treated vein: varicosities. Site: calf, knee, thigh and ankle Laterality: bilateral POST-PROCEDURE DETAILS Number of veins treated: 2 or more Pressure compression garments applied po st-operatively: yes ?? Procedure completed successfully: yes ?? Complications: no apparent complications Juanita Vaz APRN, C.N.P. PROCEDURE/MINOR SURGICAL ORDERABLES Performing Organization Address City/State/ZIP Code Phon e Number MMODAL MMODAL NA from Last 3 Months Insurance Payer Benefit Plan Subscriber ID Effective Phone Address Typ e / Group Dates [facility] [id number] 2021-Prese [phone] [address] [address] PPO COMPLETE nt [address] [place] [address] Advance Directives For more information, please contact: [phone] Documents on File Type Date Recorded Patient Accounts Payable Lead Explanati on Advance Directives 06/25/2016 12:00 AM Anna Lozabai doc ument. See document viewer. Advance Directives 05/24/2015 12:00 AM Anna Lozabai doc ument. See document viewer. Latest Code Status on File Code Status Date Activated Date Inactivated Comments Full Code 09/11/2020 12:44 PM 09/12/2020 4:25 PM Question Answer Comments Full Code: Discussed Care Teams Quality Control Assessor Relationship Specialty Start Date End Date Elsewhere, Pcp PCP - General Internal Medicine 07/03/17
--- OUTSIDE RECORDS SUMMARY | 2022-07-30 19:52 | XMS_ITS | Encounter Summary ---
:1945 Author Organization [facility] Address [address] [place] [address] Care Team Providers Name Role Phone Elsewhere, Pcp Primary Care Provider Unavailable Reason for Referral Outpatient (Routine) - Authorized Specialty Diagnoses / Procedures Referred By Contact Refer red To Contact Diagnoses Varicose Vein Lower Extremity With Pain Bilateral Juanita Vaz APRN, [facility] Procedures Sclerotherapy [place] INJ SCLEROSING SOLN MULT VEIN C.N.P. [address] [place], [place] [phone] Referral ID Status Reason Start Date Expiration Date Visits V isits Requested Authorized [id number] Authorized 04/15/2022 04/15/2023 1 1 Outpatient (Routine) - Authorized Specialty Diagnoses / Procedures Referred By Contact Refer red To Contact Diagnoses Varicose Vein Lower Extremity With Pain Bilateral Juanita Vaz APRN, [facility] Procedures Sclerotherapy [place] INJ SCLEROSING SOLN MULT VEIN C.N.P. [address] [place] [address] Referral ID Status Reason Start Date Expiration Date Visits V isits Requested Authorized [id number] Authorized 04/14/2022 04/14/2023 3 3 Reason for Visit Outpatient (Routine) - Closed Specialty Diagnoses / Procedures Referred By Contact Refer red To Contact Diagnoses Varicose Vein Lower Extremity With Pain Bilateral Juanita Vaz APRN, [place] [facility] Procedures Sclerotherapy [place] INJ SCLEROSING SOLN MULT VEIN C.N.P. [address] [place] [address] Referral ID Status Reason Start Date Expiration Date Visits Requ ested Visits Authorized [id number] Closed 07/28/2021 07/28/2022 3 3 Encounter Details Date Type Department Care Team Description 04/14/2022 Procedure visit [facility] Juanita Vaz Wi ricose Vein Lower Medicine and Surgery CLAUDIA Malone, C. N.P. Extremity With Pain in [place], [address] [place] [address] Bilateral (Primary [place], [place] Dx) [address] [place] [phone] [place], [place] [phone] (Work) [phone] Social History Tobacco Use Types Packs/Day Years [...] or relatives? How often do you attend pentecostal or More than 4 times per year 01/28/2021 religion services? Do you belong to any clubs or Yes 01/28/2021 organizations such as pentecostal groups, unions, fraternal or athletic groups, or [...] place to sleep or slept in a snf (including now)? Education Answer Date Recorded What is the highest level of school Master's degree (e.g., M A, MS, 03/30/2019 you have completed or the highest Armando, MEd, SOFTWARE TEST DEVELOPER, ALL) degree you have received? Sex Assigned at Date Recorded Female 07/26/2020 9:06 PM CDT documented as of this encounter Procedure Notes Juanita Vaz APRN, C.NAnaliP. - 04/14/2022 9:00 AM CDTAssociated Order(s): Sclerotherapy Post-Procedure Diagnose(s): Varicose Vein Lower Extremity With Pain Bilateral Sclerotherapy Date/Time: 04/14/2022 9:04 AM Performed by: Juanita Vaz APRN C.N.P. Authorized by: Juanita Vaz APRN, C.N.P. Care team members present 1. Juanita Vaz APRN, [place].N.P. PROCEDURE DETAILS Sclerosant: polidocanol Polidocanol concentration: 1% (0.1% injecting a total of 22 cc) Needle gauge: 30g VeinLite used: no All reticular veins were injected once blood return was verified: yes All telangiectasias were injected slowly upon entering the skin: yes Injections were stopped at the first sign of bleb formation or lack of progression of vein blanching: yes Each site was vigorously rubbed for 3-5 seconds after completion of injection: yes CONSENT Consent obtained: written UNIVERSAL PROTOCOL All relevant documentation and testing were reviewed and available. All required blood products, implants, devices and or special equipment were made available as applicable. Pre-procedure verificationwas conducted and the correct site was marked if required. A fire risk assessment was done as applicable. The procedural time-out to verify correct patient, correct side/site, and procedure was conducted prior to performing the procedure and confirmed in a procedural pause. PRE-PROCEDURE DETAILS Indications: symptomatic varicosities Appropriate hand hygiene, gown, cap, mask, protective eyewear, sterile gloves, skin preparation, sterile drape, and strict aseptic technique were utilized as applicable for the procedure: yes Skin preparation: alcohol SEDATION / ANESTHESIA Anesthesia method: none LOCATION Treated vein: varicosisites and reticular veins. Aspect: anterior, posterior, medial and lateral Site: ankle, calf and thigh Laterality: bilateral POST-PROCEDURE DETAILS Number of veins treated: 2 or more Pressure compression garments applied post-operatively: yes Procedure completed successfully: yes Complications: no apparent complications documented in this encounter Plan of Treatment Upcoming Encounters Date Type Specialty Care Team Description 09/08/2022 Procedure visit Aesthetic Medicine and Juanita Vaz, Surgery CLAUDIA, C.N.P. [address] [place] [phone] (Wo rk) 09/08/2022 Comprehensive Visit Aesthetic Medicine and Lucero Pritchard, Surgery Francesca, Ph.D. [address] [place] [phone] (Charlotte rk) Scheduled Orders Name Type Priority Associated Diagnoses Order S chedule Sclerotherapy Procedures Routine Varicose Vein Lower 3 Occur rences starting Extremity With Pain 04/14/20 22 until Bilateral 04/14/2025, 2 c ompleted documented as of this encounter Procedures Procedure Name Priority Date/Time Associated Diagnosis Comme nts SCLEROTHERAPY Routine 04/14/2022 9:04 AM Varicose Vein Lower R esults for this CDT Extremity With Pain procedur e are in the Bilateral results section . documented in this encounter Results Sclerotherapy (07/24/2022 8:45 AM CDT) Narrative MMODAL - 07/24/2022 8:45 AM CDT Juanita Vaz APRN, C.N.P. ? 07/24/2022 ??2:02 PM Sclerotherapy Performed by: Juanita Vaz APRN, C. N.P. [...] noted. N o complications incurred. Juanita Vaz APRN, C.N.P. PROCEDURE/MINOR SURGICAL ORDERABLES Performing Organization Address City/State/ZIP Code Phon e Number MMODAL MMODAL NA Sclerotherapy (05/26/2022 3:32 PM CDT) Narrative MMODAL - 05/26/2022 3:32 PM CDT Juanita Vaz APRN, C.N.P. ? 05/26/2022 ??3:35 PM Sclerotherapy Date/Time: [...] Code Phon e Number MMODAL MMODAL NA Sclerotherapy (04/14/2022 9:04 AM CDT) Narrative MMODAL - 04/14/2022 9:04 AM CDT Juanita Vaz APRN, C.N.P. ? 04/15/2022 ??5:08 PM Sclerotherapy Date/Time: 04/14/2022 9:04 AM Performed by: Juanita Vaz APRN, C. N.P. Authorized by: Juanita Vaz APRN, C .N.P. Care team members present 1. Juanita Vaz APRN, C.N.P. PROCEDURE DETAILS Sclerosant: polidocanol Polidocanol concentration: 1% (0.1% inje cting a total of 22 cc) Needle gauge: 30g VeinLite used: no [...] injection: yes ?? CONSENT Consent obtained: written UNIVERSAL PROTOCOL All relevant documentation and testing [...] ANESTHESIA Anesthesia method: none LOCATION Treated vein: varicosisites and reticula r veins. Aspect: anterior, posterior, medial and lateral Site: ankle, calf and thigh Laterality: bilateral POST-PROCEDURE DETAILS Number of veins treated: 2 or more Pressure compression garments applied po st-operatively: yes ?? Procedure completed successfully: yes ?? Complications: no apparent complications Juanita Vaz APRN, C.N.P. PROCEDURE/MINOR SURGICAL ORDERABLES Performing Organization Address City/State/ZIP Code Phon e Number MMODAL MMODAL NA documented in this encounter Visit Diagnoses Diagnosis Varicose Vein Lower Extremity With Pain Bilateral - Primary Varicose Vein Lower Extremity With Pain Bilateral Varicose Vein Lower Extremity With Pain Bilateral Wrinkled Skin documented in this encounter Care Teams Crate Opener Relationship Specialty Start Date End Date Elsewhere, Pcp PCP - General Internal Medicine 07/03/17 documented as of this encounter
--- OUTSIDE RECORDS SUMMARY | 2022-07-30 19:52 | XMS_ITS | Encounter Summary ---
:1945 Author Organization [facility] Address [address] [place] [address] Care Team Providers Name Role Phone Elsewhere, Pcp Primary Care Provider Unavailable Reason for Referral Outpatient (Routine) - Authorized Specialty Diagnoses / Procedures Referred By Contact Refer red To Contact Diagnoses Varicose Vein Lower Extremity With Pain B[facility] S[facility] [place] INJ SCLEROSING SOLN MULT VEIN C.N.P. [address] [place], [place] [phone] Referral ID Status Reason Start Date Expiration Date Visits V isits Requested Authorized [id number] Authorized 01/09/2022 01/09/2023 1 1 Reason for Visit Outpatient (Routine) - Closed Specialty Diagnoses / Procedures Referred By Contact Refer red To Contact Diagnoses Varicose Vein Lower Extremity With Pain Bilateral [facility] Procedures Sclerotherapy [place] INJ SCLEROSING SOLN MULT VEIN C.N.P. [address] [place], [place] [phone] Referral ID Status Reason Start Date Expiration Date Visits Requ ested Visits Authorized [id number] Closed 07/28/2021 07/28/2022 3 3 Encounter Details Date Type Department Care Team Description 01/09/2022 Procedure visit [facility] Juanita Vaz Ma ricose Vein Lower Medicine and Surgery CLAUDIA Malone C. [place]uana Extremity With Pain in [place], [facility] [address] [facility] Bilateral (Primary [place], [place] Dx) [address] [facility] [address] [place], [place] [phone] (Work) [phone] Social History Tobacco Use Types Packs/Day Years [...] or relatives? How often do you attend nondenominational or More than 4 times per year 01/28/2021 protestant services? Do you belong to any clubs or Yes 01/28/2021 organizations such as nondenominational groups, unions, fraternal or athletic groups, or [...] place to sleep or slept in a usp (including now)? Education Answer Date Recorded What is the highest level of school Master's degree (e.g., M A, MS, 03/30/2019 you have completed or the highest Armando, MEd, TEST AND BALANCE ENGINEER, ALL) degree you have received? Sex Assigned at Date Recorded Female 07/26/2020 9:06 PM CDT documented as of this encounter Procedure Notes Juanita Vaz APRN, C.N.P. - 01/09/2022 9:00 AM CDTAssociated Order(s): Sclerotherapy Post-Procedure Diagnose(s): Varicose Vein Lower Extremity With Pain Bilateral Sclerotherapy Date/Time: 01/09/2022 10:53 AM Performed by: Juanita Vaz APRN, C.N.P. Authorized by: Juanita Vaz APRN, C.N.P. Care team members present 1. Juanita Vaz APRN, C.N.P. PROCEDURE DETAILS Sclerosant: polidocanol Polidocanol concentration: 1% (0 1% injecting a total of 26 cc) Needle gauge: 30g VeinLite used: no [...] was done as applicable. The procedural time-out was conducted prior to performing the procedure and confirmed in a procedural pause. PRE-PROCEDURE DETAILS Indications: symptomatic varicosities Appropriate hand hygiene, gown, cap, mask, protective eyewear, sterile gloves, skin preparation, sterile drape, and strict aseptic technique were utilized as applicable for the procedure: yes Skin preparation: alcohol SEDATION / ANESTHESIA Anesthesia method: none LOCATION Treated vein: Varicosity. Aspect: anterior, posterior, medial and lateral Site: calf, thigh, knee and ankle Laterality: bilateral POST-PROCEDURE DETAILS Number of veins treated: 2 or more Pressure compression garments applied post-operatively: yes Procedure completed successfully: yes Complications: no apparent complications documented in this encounter Plan of Treatment Upcoming Encounters Date Type Specialty Care Team Description 09/08/2022 Procedure visit Aesthetic Medicine and Juanita Vaz, Surgery CLAUDIA, C.N.P. [address] [place] [phone] (Charlotte bentley) 09/08/2022 Comprehensive Visit Aesthetic Medicine and Lucero Pritchard, Surgery MJayda, Ph.D. [address] [place] [phone] (Charlotte bentley) documented as of this encounter Procedures Procedure Name Priority Date/Time Associated Diagnosis Comme nts SCLEROTHERAPY Routine 01/09/2022 10:53 AM Varicose Vein Lower Results for this CDT Extremity With Pain procedur e are in the Bilateral results section . documented in this encounter Results Sclerotherapy (01/09/2022 10:53 AM CDT) Narrative MMODAL - 01/09/2022 10:53 AM CDT Juanita Vaz APRN, C.N.P. ? 01/09/2022 10:56 AM Sclerotherapy Date/Time: 01/09/2022 10:53 AM Performed by: Juanita Vaz APRN C. N.P. Authorized by: Juanita Vaz APRN, C .N.PAnali Care team members present 1. Juanita Vaz APRN C.N.P. PROCEDURE DETAILS Sclerosant: polidocanol Polidocanol concentration: 1% (0 1% inje cting a total of 26 cc) Needle gauge: 30g VeinLite used: no [...] was done as applicable. The procedural time-out w as conducted prior to performing the procedure and confirmed in a procedu ral pause. PRE-PROCEDURE DETAILS Indications: symptomatic varicosities Appropriate hand hygiene, gown, cap, mas k, protective eyewear, sterile gloves, skin preparation, sterile drape, and strict aseptic technique were utilized as applicable for the procedure : yes ?? Skin preparation: alcohol SEDATION / ANESTHESIA Anesthesia method: none LOCATION Treated vein: Varicosity. Aspect: anterior, posterior, medial and lateral Site: calf, thigh, knee and ankle Laterality: bilateral POST-PROCEDURE DETAILS Number [...] Lower Extremity With Pain Bilateral - Primary documented in this encounter Care Teams Behavioral Therapy Coordinator Relationship Specialty Start Date End Date Elsewhere, Pcp PCP - General Internal Medicine 07/03/17 documented as of this encounter
--- OUTSIDE RECORDS SUMMARY | 2022-07-30 19:52 | XMS_ITS | Encounter Summary ---
:1945 Author Organization [facility] Address [address] [place] [address] Care Team Providers Name Role Phone iTtus Medina MD Primary Care Provider Encounter Details Date Type Department Care Team Description 11/12/1993 Office Visit [facility] Everton Tena, Acute sinusitis, unspecified ; [address] [facility] EZIO OLIVEROS Acute upper respiratory infections of un specified site [address] [place] [address] [place] [address] Social History Tobacco Use Types Packs/Day Years Used Date Smoking Tobacco: Never Assessed Sex Assigned at Date Recorded Not on file documented as of this encounter Plan of Treatment Not on filedocumented as of this encounter Visit Diagnoses Diagnosis Acute sinusitis, unspecified Acute upper respiratory infections of un specified site documented in this encounter Care Teams Medical Staff Services Manager Relationship Specialty Start Date End Date Titus Medina MD PCP - General 09/16/1996 03/17/15 documented as of this encounter
--- OUTSIDE RECORDS SUMMARY | 2022-07-30 19:52 | XMS_ITS | Encounter Summary ---
:1945 Author Organization [facility] Address [address] [place] [address] Care Team Providers Name Role Phone Elsewhere, Pcp Primary Care Provider Unavailable Reason for Referral Outpatient (Routine) - Authorized Specialty Diagnoses / Procedures Referred By Contact Refer red To Contact Dermatology Diagnoses Wrinkled Skin Juanita Vaz APRN, [place] C.N.P. [address] [place] [address] Referral ID Status Reason Start Date Expiration Date Visits V isits Requested Authorized [id number] Authorized 07/24/2022 07/24/2023 1 1 Reason for Visit Outpatient (Routine) - Authorized Specialty Diagnoses / Procedures Referred By Contact Refer red To Contact Diagnoses Varicose Vein Lower Extremity With Pain Bilateral Juanita Vaz APRN, [facility] Procedures Sclerotherapy [place] INJ SCLEROSING SOLN MULT VEIN C.N.P. [address] [place] [address] Referral ID Status Reason Start Date Expiration Date Visits V isits Requested Authorized [id number] Authorized 04/14/2022 04/14/2023 3 3 Encounter Details Date Type Department Care Team Description 07/24/2022 Procedure visit [facility] Juanita Vaz ricose Vein Lower Extremity With Pain Bilateral; Medicine and Surgery CLAUDIA Malone, C. N.P. Wrinkled Skin in [facility] 200 [place], [place] 200 [facility] [address] [place], [place] [phone] (Work) [phone] Social History Tobacco Use Types Packs/Day Years [...] or relatives? How often do you attend quaker or More than 4 times per year 01/28/2021 buddhism services? Do you belong to any clubs or Yes 01/28/2021 organizations such as quaker groups, unions, fraternal or athletic groups, or [...] minutes do you engage in exercise at is 40 min 01/28/2021 level? Stress Answer [...] place to sleep or slept in a longterm (including now)? Education Answer Date Recorded What is the highest level of school Master's degree (e.g., M A, MS, 03/30/2019 you have completed or the highest Armando, MEd, POULTRY CLEANER, ALL) degree you have received? Sex Assigned at Date Recorded Female 07/26/2020 9:06 PM CDT documented as of this encounter Procedure Notes Juanita Vaz APRN, C.N.P. - 07/24/2022 8:45 AM CDTAssociated Order(s): Sclerotherapy Pre-Procedure Diagnose(s): Varicose Vein Lower Extremity With Pain Bilateral Post-Procedure Diagnose(s): Varicose Vein Lower Extremity With Pain Bilateral Sclerotherapy Performed by: Juanita Vaz APRN, C.N.P. Authorized by: Juanita Vaz APRN, C.N.P. Care team members present 1. Juanita Vaz APRN, C.N.P. PROCEDURE DETAILS Sclerosant: polidocanol Polidocanol concentration: 1% (0.1% injecting a total of 32 cc) Needle gauge: 30g VeinLite used: yes All reticular veins were injected once blood return was verified: yes All telangiectasias were injected slowly upon entering the skin: yes Injections were stopped at the first sign of bleb formation or lack of progression of vein blanching: yes Each site was vigorously rubbed for 3-5 seconds after completion of injection: yes CONSENT Consent obtained: verbal Consent given by: patient The benefits, risks and alternatives to the procedure and the potential need for sedation or anesthesia as well as the names, roles, and responsibilities of healthcare team members performing significant interventional tasks were discussed with [...] completed successfully: yes Complications: no apparent complications COMMENTS Visual sclerotherapy performed for symptomatic varicose veins with pain. Gradual improvement of symptoms noted. No complications incurred. documented in this encounter Plan of Treatment Upcoming Encounters Date Type Specialty Care Team Description 09/08/2022 Procedure visit Aesthetic Medicine and Juanita Vaz, Surgery CLAUDIA, C.N.P. [address] [place] [address] (Wo rk) 09/08/2022 Comprehensive Visit Aesthetic Medicine and WyLucero mcadams Surgery Francesca, Ph.D. [address] [place] [phone] (Wo rk) Scheduled Referrals Name Type Priority Associated Order Schedule Diagnoses Dermatology - Outpatient Referral Routine Wrinkled Skin Expect ed: Cosmetic consult 07/24/2022 (clinic) (Approximate), Expires: 10/24/2023 documented as of this encounter Procedures Procedure Name Priority Date/Time Associated Diagnosis Comme nts SCLEROTHERAPY Routine 07/24/2022 8:45 AM Varicose Vein Lower R esults for this CDT Extremity With Pain procedur e are in the Bilateral results section . documented in this encounter Results Sclerotherapy (07/24/2022 8:45 AM CDT) Narrative MMODAL - 07/24/2022 8:45 AM CDT Juanita Vaz APRN C.N.P. ? 07/24/2022 ??2:02 PM Sclerotherapy Performed [...] Skin documented in this encounter Care Teams Wax Blender Relationship Specialty Start Date End Date Elsewhere, Pcp PCP - General Internal Medicine 07/03/17 documented as of this encounter
--- OUTSIDE RECORDS SUMMARY | 2022-07-30 19:52 | XMS_ITS | Encounter Summary ---
:1945 Author Organization [facility] Address [address] [place] [address] Care Team Providers Name Role Phone Elsewhere, Pcp Primary Care Provider Unavailable Encounter Details Date Type Department Care Team Description 07/24/2022 Ancillary Procedure Department of Vascular Social History Tobacco Use Types Packs/Day Years [...] or relatives? How often do you attend shinto or More than 4 times per year 01/28/2021 restorationism services? Do you belong to any clubs or Yes 01/28/2021 organizations such as shinto groups, unions, fraternal or athletic groups, or [...] place to sleep or slept in a assisted (including now)? Education Answer Date Recorded What is the highest level of school Master's degree (e.g., M A, MS, 03/30/2019 you have completed or the highest Armando, MEd, JOURNEYMAN PRESSMAN, ALL) degree you have received? Sex Assigned at Date Recorded Female 07/26/2020 9:06 PM CDT documented as of this encounter Plan of Treatment Upcoming Encounters Date Type Specialty Care Team Description 09/08/2022 Procedure visit Aesthetic Medicine and Juanita Vaz, Surgery BLOCK CUTTER, C.N.P. [address] [place] [phone] (Wo rk) 09/08/2022 Comprehensive Visit Aesthetic Medicine and Lucero Pritchard, Surgery M.DAnali, Ph.D. [address] [place] [phone] (Wo rk) documented as of this encounter Procedures Procedure Name Priority Date/Time Associated Diagnosis Comme nts VASCULAR IMAGE EXAM Routine 07/24/2022 12:00 AM R esults for this CDT procedure are i n the results section. documented in this encounter Results Legs-Vascular Image Exam (07/24/2022 12:00 AM CDT) Specimen (Source) Anatomical Location [...] Code Phon e Number IIMS IIMS NA documented in this encounter Visit Diagnoses Not on filedocumented in this encounter Care Teams Hay Chopper Relationship Specialty Start Date End Date Elsewhere, Pcp PCP - General Internal Medicine 07/03/17 documented as of this encounter
--- OUTSIDE RECORDS SUMMARY | 2022-07-30 19:52 | XMS_ITS | Encounter Summary ---
:1945 Author Organization [facility] Address [address] [place] [address] Care Team Providers Name Role Phone Elsewhere, Pcp Primary Care Provider Unavailable Reason for Referral Outpatient (Routine) - Closed Specialty Diagnoses / Procedures Referred By Contact Refer red To Contact Diagnoses Screening Mammogram Breast Cancer Merrill Harris M.D. [facility] Procedures BI Breast Screening Bilateral with Tomosynthesis [address] [place], [place] [phone] Referral ID Status Reason Start Date Expiration Date Visits Requ ested Visits Authorized [id number] Closed 11/06/2021 11/06/2022 1 1 CE NURSE Reason for Visit Outpatient (Routine) - Closed Specialty Diagnoses / Procedures Referred By Contact Refer red To Contact Diagnoses Screening Mammogram Breast Cancer Merrill Harris M.D. [facility] Procedures BI Breast Screening Bilateral with Tomosynthesis [address] [place], [place] [phone] Referral ID Status Reason Start Date Expiration Date Visits Requ ested Visits Authorized [id number] Closed 11/06/2021 11/06/2022 1 1 Encounter Details Date Type Department Care Team Description 11/13/2021 Hospital Encounter Department of Merrill Harris Mammogram Radiology javier Perera M.D. Breast Cancer [place], [place] [address] [facility] [address] [place] [phone] Social History Tobacco Use Types Packs/Day Years [...] or relatives? How often do you attend voodoo or More than 4 times per year 01/28/2021 synagogue services? Do you belong to any clubs or Yes 01/28/2021 organizations such as voodoo groups, unions, fraternal or athletic groups, or [...] place to sleep or slept in a intermediate (including now)? Education Answer Date Recorded What is the highest level of school Master's degree (e.g., M A, MS, 03/30/2019 you have completed or the highest Armando, MEd, BRAIDED BAND ASSEMBLER, ALL) degree you have received? Sex Assigned at Date Recorded Female 07/26/2020 9:06 PM CDT documented as of this encounter Medications at Time of Discharge Medication Sig Dispensed Refills Start Date End Date alendronate (FOSAMAX) 70 TAKE 1 TABLET BY 12 tablet 3 09/01 mg tablet MOUTH EVERY 7 DAYS ON EMPTY STOMACH. REMAIN UPRIGHT FOR AT LEAST 30 MINUTES amoxicillin (AMOXIL) 500 as needed. Prior to 0 mg capsule dental work. calcium citrate Take 1 tablet by 0 (CALCITRATE) 950 mg (200 mouth 2 (two) times a mg calcium) tablet day. 500mg cholecalciferol (VITAMIN Take 2,400 mcg by 0 05/05 D3) 50 mcg (2,000 Unit) mouth every morning. capsule 2400mcg ciprofloxacin (CIPRO) 500 TAKE 1 TABLET (500 0 mg tablet MG) BY MOUTH 2 TIMES DAILY FOR 5 DAYS co-enzyme Q-10 (COQ-10) Take 100 mg by mouth 0 100 mg capsule every morning. docosahexaenoic acid-epa Take 1,200 mg by 0 120-180 mg capsule mouth. estradiol (ESTRACE) 0.1 Insert 1 application 0 mg/g (0.01%) vaginal cream into the vagina as directed. 3 times a week on the labia estradiol (ESTRING) 2 mg Insert 1 application 0 0 03/16/2014 (7.5 mcg /24 hour) vaginal into the vagina as ring directed. Every 3 months fluconazole (DIFLUCAN) 150 TAKE 1 TABLET (150 0 0 10/13/2021 mg tablet MG) BY MOUTH TWICE A WEEK FOR 2 DAYS glucosamine-chondroitin Take 1 capsule by 0 (GLUCOSAMINE-CHONDROITIN) mouth 3 (three) times 500-400 mg per capsule a day. 750 mg glucosamine/chondr castro A Take 1 capsule by 0 sod mouth daily. (glucosamine-chondroitin) 1,500-1,200 mg/30 mL liquid hydrocortisone (ANUSOL-HC) Insert into the 0 11/04 2.5 % rectal cream rectum as needed. irbesartan (AVAPRO) 150 mg Take 150 mg by mouth 0 tablet daily. L-LYSINE ORAL Take 1 tablet by 0 05/24/2015 mouth every morning. 1000 mg lisinopriL Take 1 tablet by 0 03/20/2010 (PRINIVIL,ZESTRIL) 20 mg mouth daily. tablet magnesium 200 mg tablet Take 400 mg by mouth 0 every morning before breakfast. magnesium citrate 100 mg Take 150 mg by mouth. 0 capsule nystatin (MYCOSTATIN) APPLY 1 APPLICATION 0 10/29 100,000 unit/gram ointment TWICE A DAY TOPICALLY CORNERS OF MOUTH omega-3 pcb-hgd-sypw oil Take 1 capsule by mouth 3 (three) times a day. 690mg 0 500-1,000 mg per capsule Epa 330 Dha 220 Other 140 polyethylene glycol Take 1 packet by 0 (MIRALAX) 17 gram/dose mouth daily. oral powder rosuvastatin (CRESTOR) 5 Take 5 mg by mouth 0 mg tablet every morning. tretinoin (RETIN-A) 0.05 % Apply 1 application 10 12/07/2018 cream topically at bedtime. triamcinolone (KENALOG) 0 08/15/2021 0.1 % ointment valacyclovir HCl (VALTREX Take 1 tablet by 0 ORAL) mouth as needed. documented as of this encounter Plan of Treatment Upcoming Encounters Date Type Specialty Care Team Description 09/08/2022 Procedure visit Aesthetic Medicine and Juanita Vaz, Surgery FILM SPLICER, C.N.P. [address] [place] [phone] (Wo rk) 09/08/2022 Comprehensive Visit Aesthetic Medicine Lucero Mckeon, Surgery M.Norma, Ph.D. [address] [place] [phone] (Wo rk) documented as of this encounter Procedures Procedure Name Priority Date/Time Associated Comments Diagnosis BI BREAST SCREENING RAD - Routine 11/13/2021 12:22 Screening Res ults for BILATERAL WITH (most inpatients PM OFFICE NURSE Mammogram Breast this procedure TOMOSYNTHESIS and all Cancer are in the outpatients) results section. documented in this encounter Results BI Breast Screening Bilateral with Tomosynthesis (11/13/2021 12:22 PM OFFICE NURSE) Anatomical Region Laterality Modality Breast, Breast Imaging RST LOS, Breast Imaging ARZ LOS, Crystal st Bilateral Mammography Imaging FLA LOS Specimen (Source) Anatomical Collection Method Collection Time Re ceived Time Location / / Volume Laterality 11/13/2021 2:16 PM OFFICE NURSE Impressions 11/13/2021 2:43 PM OFFICE NURSE Benign. RECOMMENDATION: ??Annual Screening Mammo gram ASSESSMENT: ??BI-RADS: 2: Benign. Narrative 11/13/2021 2:43 PM OFFICE NURSE EXAM: ??BI BREAST SCREENING BILATERAL WITH TOMOSYNTHESIS Current study was evaluated with a Compound Timeu ter Aided Detection (CAD) system. INDICATION: ??Screening mammogram. COMPARISON: ??Prior exam(s) were availab le and reviewed for comparison. DENSITY: ??b. There are scattered areas of fibroglandular density. FINDINGS: ??No findings of malignancy. ? ?No significant change since prior exam. Postoperative changes from reduction jesús moplasty. Procedure Note Priya Mc M.D. - 11/13/2021For matting of this note might be different from the original. EXAM: BI BREAST SCREENING BILATERAL WITH TOMOSYNTHESIS Current study was evaluated with a Compu ter Aided Detection (CAD) system. INDICATION: Screening mammogram. COMPARISON: Prior exam(s) were available and reviewed for comparison. DENSITY: b. There are scattered areas of fibroglandular density. FINDINGS: No findings of malignancy. No significant change since prior exam. Postoperative changes from reduction jesús moplasty. IMPRESSION: Benign. RECOMMENDATION: Annual Screening Mammogr am ASSESSMENT: BI-RADS: 2: Benign. Merrill WARD BI PROCEDURES documented in this encounter Visit Diagnoses Diagnosis Screening Mammogram Breast Cancer documented in this encounter Care Teams Supervisor Asphalt Paving Relationship Specialty Start Date End Date Elsewhere, Pcp PCP - General Internal Medicine 07/03/17 documented as of this encounter
--- OUTSIDE RECORDS SUMMARY | 2022-07-30 19:52 | XMS_ITS | Encounter Summary ---
:1945 Author Organization [facility] Address [address] [place] [address] Care Team Providers Name Role Phone Elsewhere, Pcp Primary Care Provider Unavailable Encounter Details Date Type Department Care Team Description 04/14/2022 Ancillary Procedure Department of Vascular Social History [...] or relatives? How often do you attend baptist or More than 4 times per year 01/28/2021 samaritan services? Do you belong to any clubs or Yes 01/28/2021 organizations such as baptist groups, unions, fraternal or athletic groups, or [...] place to sleep or slept in a retirement (including now)? Education Answer Date Recorded What is the highest level of school Master's degree (e.g., M A, MS, 03/30/2019 you have completed or the highest Armando, MEd, SPORTS PHYSICAL THERAPIST, ALL) degree you have received? Sex Assigned at Date Recorded Female 07/26/2020 9:06 PM CDT documented as of this encounter Plan of Treatment Upcoming Encounters Date Type Specialty Care Team Description 09/08/2022 Procedure visit Aesthetic Medicine and Juanita Vaz, Surgery DATABASE PROGRAMMER, C.N.P. [address] [place] [phone] (Wo rk) 09/08/2022 Comprehensive Visit Aesthetic Medicine and Lucero Pritchard, Surgery M.DAnali, Ph.D. [address] [place] [phone] (Wo rk) documented as of this encounter Procedures Procedure Name Priority Date/Time Associated Diagnosis Comme nts VASCULAR IMAGE EXAM Routine 04/14/2022 12:00 AM R esults for this CDT procedure are i n the results section. documented in this encounter Results Legs-Vascular Image Exam (04/14/2022 12:00 AM CDT) Specimen (Source) Anatomical Location Collection Method / Collectio n Time Received Time / Laterality Volume Narrative IIMS - 04/14/2022 11:27 AM CDT This order has been created [...] on filedocumented in this encounter Care Teams Budget Accountant Relationship Specialty Start Date End Date Elsewhere, Pcp PCP - General Internal Medicine 07/03/17 documented as of this encounter
--- OUTSIDE RECORDS SUMMARY | 2022-07-30 19:52 | XMS_ITS | Encounter Summary ---
:1945 Author Organization [facility] Address [address] [place] [address] Care Team Providers Name Role Phone Elsewhere, Pcp Primary Care Provider Unavailable Encounter Details Date Type Department Care Team Description 11/04/2021 Ancillary Procedure Department of Vascular Social History [...] or relatives? How often do you attend anabaptist or More than 4 times per year 01/28/2021 evangelical services? Do you belong to any clubs or Yes 01/28/2021 organizations such as anabaptist groups, unions, fraternal or athletic groups, or [...] place to sleep or slept in a custodial (including now)? Education Answer Date Recorded What is the highest level of school Master's degree (e.g., M A, MS, 03/30/2019 you have completed or the highest Armando, MEd, TOP COLLAR BASTER, ALL) degree you have received? Sex Assigned at Date Recorded Female 07/26/2020 9:06 PM CDT documented as of this encounter Plan of Treatment Upcoming Encounters Date Type Specialty Care Team Description 09/08/2022 Procedure visit Aesthetic Medicine and Juanita Vaz, Surgery FORTUNE TELLER, C.N.P. [address] [place] [phone] (Wo rk) 09/08/2022 Comprehensive Visit Aesthetic Medicine and Lucero Pritchard, Surgery M.DAnali, Ph.D. [address] [place] [phone] (Wo rk) documented as of this encounter Procedures Procedure Name Priority Date/Time Associated Diagnosis Comme nts VASCULAR IMAGE EXAM Routine 11/04/2021 12:00 AM R esults for this RIVERINE ASSAULT CRAFT CREWMAN procedure are i n the results section. documented in this encounter Results Legs-Vascular Image Exam (11/04/2021 12:00 AM RIVERINE ASSAULT CRAFT CREWMAN) Specimen (Source) Anatomical Location Collection Method / Collectio n Time Received Time / Laterality Volume Narrative IIMS - 11/04/2021 1:16 PM RIVERINE ASSAULT CRAFT CREWMAN This order has been created and auto-finalized [...] filedocumented in this encounter Care Teams Digital Media Designer Relationship Specialty Start Date End Date Elsewhere, Pcp PCP - General Internal Medicine 07/03/17 documented as of this encounter
--- OUTSIDE RECORDS SUMMARY | 2022-07-30 19:52 | XMS_ITS | Encounter Summary ---
:1945 Author Organization [facility] Address [address] [place] [address] Care Team Providers Name Role Phone Elsewhere, Pcp Primary Care Provider Unavailable Encounter Details Date Type Department Care Team Description 05/26/2022 Ancillary Procedure Department of Vascular Social History [...] or relatives? How often do you attend congregation or More than 4 times per year 01/28/2021 baptism services? Do you belong to any clubs or Yes 01/28/2021 organizations such as congregation groups, unions, fraternal or athletic groups, or [...] have completed or the highest Armando, MEd, METHODS ANALYST, ALL) degree you have received? Sex Assigned at Date Recorded Female 07/26/2020 9:06 PM CDT documented as of this encounter Plan of Treatment Upcoming Encounters Date Type Specialty Care Team Description 09/08/2022 Procedure visit Aesthetic Medicine and Juanita Vaz, Surgery LIBRARY CONSULTANT, C.N.P. [address] [place] [phone] (Wo rk) 09/08/2022 Comprehensive Visit Aesthetic Medicine and Lucero Pritchard, Surgery M.DAnali, Ph.D. [address] [place] [phone] (Wo rk) documented as of this encounter Procedures Procedure Name Priority Date/Time Associated Diagnosis Comme nts VASCULAR IMAGE EXAM Routine 05/26/2022 12:00 AM R esults for this CDT procedure are i n the results section. documented in this encounter Results Legs-Vascular Image Exam (05/26/2022 12:00 AM CDT) Specimen (Source) Anatomical Location Collection Method / Collectio n Time Received Time / Laterality Volume Narrative IIMS - 05/26/2022 11:41 AM CDT This order has been created [...] in this encounter Care Teams Director Of Flight Operations Relationship Specialty Start Date End Date Elsewhere, Pcp PCP - General Internal Medicine 07/03/17 documented as of this encounter
--- OUTSIDE RECORDS SUMMARY | 2022-07-30 19:52 | XMS_ITS | Encounter Summary ---
:1945 Author Organization [facility]ending [facility] to [facility] Address [address] [place] [address] Care Team Providers Name Role Phone Titus Medina MD Primary Care Provider Encounter Details Date Type Department Care Team Description 11/05/1993 Office Visit Danish Sanchez DPM Ingrowi ng nail; Enthesopathy of ankle and tarsus, unspecified Social History Tobacco Use Types Packs/Day Years Used Date Smoking Tobacco: Never Assessed Sex Assigned at Date Recorded Not on file documented as of this encounter Plan of Treatment Not on filedocumented as of this encounter Visit Diagnoses Diagnosis Ingrowing nail Enthesopathy of ankle and tarsus, unspec ified documented in this encounter Care Teams Family And Consumer Education Teacher Relationship Specialty Start Date End Date Titus Medina MD PCP - General 09/16/1996 03/17/15 documented as of this encounter
--- OUTSIDE RECORDS SUMMARY | 2022-07-30 19:52 | XMS_ITS | Encounter Summary ---
:1945 Author Organization [facility] Address [address] [place] [address] Care Team Providers Name Role Phone Elsewhere, Pcp Primary Care Provider Unavailable Reason for Referral Outpatient (Routine) - Authorized Specialty Diagnoses / Procedures Referred By Contact Refer red To Contact Diagnoses Varicose Vein Lower Extremity With Pain Bilateral Juanita Vaz APRN, [facility] Procedures Sclerotherapy NE INJ SCLEROSING SOLN MULT VEIN C.N.P. [address] [place] [phone] Referral ID Status Reason Start Date Expiration Date Visits V isits Requested Authorized [id number] Authorized 02/27/2022 02/27/2023 1 1 Reason for Visit Outpatient (Routine) - Closed Specialty Diagnoses / Procedures Referred By Contact Refer red To Contact Diagnoses Varicose Vein Lower Extremity With Pain Bilateral Juanita Vaz APRN, [facility] Procedures Sclerotherapy NE INJ SCLEROSING SOLN MULT VEIN C.N.P. [address] [place] [phone] Referral ID Status Reason Start Date Expiration Date Visits Requ ested Visits Authorized [id number] Closed 07/28/2021 07/28/2022 3 3 Encounter Details Date Type Department Care Team Description 02/27/2022 [facility] Juanita Vaz Ct ricose Vein Lower Medicine and Surgery CLAUDIA Malone CAnali NAnaliPAnali Extremity With Pain in [place], [address] [facility] Bilateral (Primary [place], [place] Dx) [address] [facility] [address] [place], [place] [phone] (Work) [phone] Social History Tobacco Use Types Packs/Day Years [...] or relatives? How often do you attend confucianist or More than 4 times per year 01/28/2021 protestant services? Do you belong to any clubs or Yes 01/28/2021 organizations such as confucianist groups, unions, fraternal or athletic groups, or [...] place to sleep or slept in a long-term (including now)? Education Answer Date Recorded What is the highest level of school Master's degree (e.g., M A, MS, 03/30/2019 you have completed or the highest Armando, MEd, AROMATHERAPIST, ALL) degree you have received? Sex Assigned at Date Recorded Female 07/26/2020 9:06 PM CDT documented as of this encounter Procedure Notes Juanita Vaz APRN, C.N.P. - 02/27/2022 1:00 PM CDTAssociated Order(s): Sclerotherapy Post-Procedure Diagnose(s): Varicose Vein Lower Extremity With Pain Bilateral Sclerotherapy Date/Time: 02/27/2022 2:49 PM Performed by: Juanita Vaz APRN, C.N.P. Authorized by: Juanita Vaz APRN, C.N.P. Care team members present 1. Juanita Vaz APRN, C.N.P. PROCEDURE DETAILS Sclerosant: sotradecol Sotradecol concentration: 1% (0.1% injecting a total of 20 cc) Needle gauge: 30g VeinLite used: no [...] procedural pause. PRE-PROCEDURE DETAILS Indications: symptomatic varicosities Skin preparation: alcohol SEDATION / ANESTHESIA Anesthesia method: none LOCATION Treated vein: Varicose. Aspect: anterior, posterior, medial and lateral Site: calf, knee and thigh Laterality: bilateral POST-PROCEDURE DETAILS Number of veins treated: 2 or more Pressure compression garments applied post-operatively: yes Procedure completed successfully: yes Complications: no apparent complications documented in this encounter Plan of Treatment Upcoming Encounters Date Type Specialty Care Team Description 09/08/2022 Procedure visit Aesthetic Medicine and Juanita Vaz, Surgery CLAUDIA, C.N.P. [address] [place] [phone] (Charlotte bentley) 09/08/2022 Comprehensive Visit Aesthetic Medicine and Lucero Pritchard Surgery MJayda, Ph.D. [address] [place] [phone] (Charlotte bentley) documented as of this encounter Procedures Procedure Name Priority Date/Time Associated Diagnosis Comme nts SCLEROTHERAPY Routine 02/27/2022 2:49 PM Varicose Vein Lower R esults for this CDT Extremity With Pain procedur e are in the Bilateral results section . documented in this encounter Results Sclerotherapy (02/27/2022 2:49 PM CDT) Narrative MMODAL - 02/27/2022 2:49 PM CDT Juanita Vaz APRN, C.NTabby. ? 02/27/2022 ??3:09 PM Sclerotherapy Date/Time: 02/27/2022 2:49 PM Performed by: Juanita Vaz APRN, C. NTabby. Authorized by: Juanita Vaz APRN, C .NJuana Care team members present 1. Juanita Vaz APRN, C.NJuana PROCEDURE DETAILS Sclerosant: sotradecol Sotradecol concentration: 1% (0.1% injec ting a total of 20 cc) Needle gauge: 30g VeinLite used: no [...] procedural pause. PRE-PROCEDURE DETAILS Indications: symptomatic varicosities Skin preparation: alcohol SEDATION / ANESTHESIA Anesthesia method: none LOCATION Treated vein: Varicose. Aspect: anterior, posterior, medial and lateral Site: calf, knee and thigh Laterality: bilateral POST-PROCEDURE DETAILS Number of veins treated: 2 or more Pressure compression garments applied po st-operatively: yes ?? Procedure completed successfully: yes ?? Complications: no apparent complications Efrain Brooks APRNNJuana PROCEDURE/MINOR SURGICAL ORDERABLES Performing Organization Address City/State/ZIP Code Phon e Number MMODAL MMODAL NA documented in this encounter Visit Diagnoses Diagnosis Varicose Vein Lower Extremity With Pain Bilateral - Primary documented in this encounter Care Teams Lead Oxide Mill Tender Relationship Specialty Start Date End Date Elsewhere, Pcp PCP - General Internal Medicine 07/03/17 documented as of this encounter
--- OUTSIDE RECORDS SUMMARY | 2022-07-30 19:52 | XMS_ITS | Clinical Summary ---
:1945 Author Organization [facility] [place] [address] Care Team Providers Name Role Phone Lisseth Vang Primary Care Provider Allergies Active Allergy Reactions Severity Noted Date Comments Adhesive Tape 09/30/2009 Codeine 09/30/2009 Morphine 09/30/2009 Nickel 09/30/2009 Medications Medication Sig Dispensed Refills Start Date End Date Status lisinopril (PRINIVIL; Take 1 tablet 0 03/20/2010 Active ZESTRIL) 20 mg tablet by mouth once daily. estradiol (ESTRACE) 0.1 Insert 2 g 1 Tube 0 03/20/2010 Active mg/g vaginal cream into the vagina at bedtime. calcium citrate-vitamin D2 Take by mouth. 400 mg twice daily 0 03/20/2010 Active (CALCIUM CITRATE WITH D) 250-100 mg-unit tablet ergocalciferol (VITAMIN D) Take 800 Units 0 03/20/20 10 Active 400 unit capsule by mouth once daily. Magnesium Oxide-Mg AA Take by mouth. Magnesium citrate 400 mg twice daily 0 03/20/2010 Active Chelate (MAGNESIUM) 300 mg Cap glucosamine-chondroitin, Take 1 capsule 0 03/20/2010 Active 500-400 mg, (COSAMIN DS by mouth 3 500/400) 500-400 mg Cap times daily. Methylsulfonylmethane (MSM) Take by mouth. 0 010 Active 1,000 mg Tab Twice daily Active Problems Problem Noted Date HTN (hypertension) 03/20/2010 Osteopenia 03/20/2010 Female stress incontinence 03/20/2010 DJD (degenerative joint disease) 03/20/2010 Tremor 03/20/2010 Immunizations Name Administration Dates Next Due Influenza, IIV3 (Age >=3 years) 09/24/2011 Family History Medical History Relation Name Comments Unknown Sister 5 two sisters w os teopenia Relation Name Status Comments Brother Father Mother Sister 1 Alive Sister 2 Alive Sister 3 Alive Sister 4 Alive Sister 5 Social History Tobacco Use Types Packs/Day Years Used Date Never Smoker Alcohol Use Standard Drinks/Week Comments No 0 (1 standard drink = 0.6 oz pure alcoho l) Sex Assigned at Date Recorded Not on file Obstetrics History Para Term AB IAB SAB Ectopic Multiple Living Live Births 1 1 1 Date Outcome GA Total Labor/2nd/3rd Weight Sex Delivery Anes PTL Marleen A 1 A5 Name Clin Labor Term Last Filed Vital Signs Vital Sign Reading Time Taken Comments Blood Pressure 120/70 03/20/2010 10:54 AM CDT Pulse 88 09/30/2009 10:15 AM RENAL DIALYSIS RN Temperature - - Respiratory Rate - - Oxygen Saturation - - Inhaled Oxygen Concentration - - Weight 73.9 kg (163 lb) 03/20/2010 10:54 AM CDT Height 168.9 cm (5' 6.5) 09/30/2009 10:15 AM RENAL DIALYSIS RN Body Mass Index 25.91 09/30/2009 10:15 AM RENAL DIALYSIS RN Plan of Treatment Health Maintenance Due Date Last Done Comments COVID-19 vaccine series (#1) 02/07/1946 Tdap 1957 Depression screening for age 12+ 1958 BMI (ht and wt on same day) for age 18+ 1964 Hepatitis C screening for age 18-79 1964 Tetanus booster 1966 Colonoscopy through age 75 1991 Lipids for age 45-75 1991 Mammogram for age 45-75 1991 Zoster (shingles) series for age 50+ (1 of 2) 1996 DEXA/DXA scan for age 65+ 2011 Pneumococcal series for age 65+ (1 - PCV) 2011 Influenza for age 65+ 06/04/2022 09/24/2011 Results Not on filefrom Last 3 Months Insurance Payer Benefit Plan / Subscriber ID Effective Dates Phone Addre ss Type Group [employer] [id number] 1999-[address] [place] [address] [facility] Contract Other 10/04/2011 [place] (Home) [place] [id number] [id number] [address] [place] [place] [address] Care Teams Storage Consultant Relationship Specialty Start Date End Date Lisseth Vang PCP - General 09/11/09
--- OUTSIDE RECORDS SUMMARY | 2022-07-30 19:52 | XMS_ITS | Encounter Summary ---
:1945 Author Organization [facility] Address [address] [place] [address] Care Team Providers Name Role Phone Elsewhere, Pcp Primary Care Provider Unavailable Reason for Referral Outpatient (Routine) - Closed Specialty Diagnoses / Procedures Referred By Contact Refer red To Contact Diagnoses Screening Mammogram Breast Cancer Merrill Harris M.D. [facility] Procedures BI Breast Screening Bilateral with Tomosynthesis [address] [place] [address] Referral ID Status Reason Start Date Expiration Date Visits Requ ested Visits Authorized [id number] Closed 11/06/2021 11/06/2022 1 1 R INSPECTOR Reason for Visit Reason Comments mammogram Encounter Details Date Type Department Care Team Description 11/06/2021 Clinical Communication Division of Merrill Harris m ammogram Endocrinology in [place], [place] [address] [facility] [address] [place] [phone] Social History Tobacco Use Types Packs/Day Years [...] or relatives? How often do you attend hoahaoism or More than 4 times per year 01/28/2021 sabianism services? Do you belong to any clubs or Yes 01/28/2021 organizations such as hoahaoism groups, unions, fraternal or athletic groups, or [...] place to sleep or slept in a halfway (including now)? Education Answer Date Recorded What is the highest level of school Master's degree (e.g., Jody Almonte, MS, 03/30/2019 you have completed or the highest Armando, MEd, RESEARCH AND DEVELOPMENT ENGINEER, ALL) degree you have received? Sex Assigned at Date Recorded Female 07/26/2020 9:06 PM CDT documented as of this encounter Miscellaneous Notes Telephone Encounter - Lea Massey - 11/07/2021 11:09 AM CST Patient is scheduled. R INSPECTOR Telephone Encounter - Merrill Harris M.D. - 11/06/2021 1:19 PM CST I signed the order. Thank you. R INSPECTOR Telephone Encounter - Lucero Thompson - 11/06/2021 12:[address] Harris, Pt is needing to schedule her mammogram, as she received a letter from [facility] stating it was time. Last one was completed 09/10/20. I have pended order for you to review and sign. Thank you Lucero Tate Please route your response to RST END Scheduling pool R INSPECTOR documented in this encounter Plan of Treatment Upcoming Encounters Date Type Specialty Care Team Description 09/08/2022 Procedure visit Aesthetic Medicine and Juanita Vaz, Surgery MANAGER REGIONAL SALES, C.N.P. [address] [place] [phone] (Charlotte bentley) 09/08/2022 Comprehensive Visit Aesthetic Medicine and Lucero Pritchard, Surgery MJayda, Ph.D. [address] [place] [phone] (Charlotte bentley) documented as of this encounter Results BI Breast Screening Bilateral with Tomosynthesis (11/13/2021 12:22 PM PAPER INSPECTOR) Anatomical Region Laterality Modality Breast, Breast Imaging RST LOS, Breast Imaging ARZ LOS, [facility] st Bilateral Mammography Imaging FLA LOS Specimen (Source) Anatomical Collection Method Collection Time Re ceived Time Location / / Volume Laterality 11/13/2021 2:16 PM PAPER INSPECTOR Impressions 11/13/2021 2:43 PM PAPER INSPECTOR Benign. RECOMMENDATION: ??Annual Screening Mammo gram ASSESSMENT: ??BI-RADS: 2: Benign. Narrative 11/13/2021 2:43 PM PAPER INSPECTOR EXAM: ??BI BREAST SCREENING BILATERAL WITH TOMOSYNTHESIS Current study was evaluated with a [employer] KAJ Hospitality Aided Detection (CAD) system. INDICATION: ??Screening mammogram. [...] TOMOSYNTHESIS Current study was evaluated with a [employer] KAJ Hospitality Aided Detection (CAD) system. INDICATION: Screening mammogram. COMPARISON: Prior exam(s) were available and reviewed for comparison. DENSITY: b. There are scattered areas of fibroglandular density. FINDINGS: No findings of malignancy. No significant change since prior exam. Postoperative changes from reduction jesús moplasty. IMPRESSION: Benign. RECOMMENDATION: Annual Screening Mammogr am ASSESSMENT: BI-RADS: 2: Benign. Merrill Harris M.D. IMG BI PROCEDURES documented in this encounter Visit Diagnoses Diagnosis Screening Mammogram Breast Cancer - Prim kitty Screening Mammogram Breast Cancer documented in this encounter Care Teams Demand Generator Manager Relationship Specialty Start Date End Date Elsewhere, Pcp PCP - General Internal Medicine 07/03/17 documented as of this encounter
--- OUTSIDE RECORDS SUMMARY | 2022-07-30 19:52 | XMS_ITS | Encounter Summary ---
:1945 Author Organization [facility] Address [address] [place] [address] Care Team Providers Name Role Phone Elsewhere, Pcp Primary Care Provider Unavailable Reason for Visit Outpatient (Routine) - Authorized Specialty Diagnoses / Procedures Referred By Contact Refer red To Contact Diagnoses Varicose Vein Lower Extremity With Pain Bilateral Juanita Vaz APRN, [facility] Procedures Sclerotherapy [place] INJ SCLEROSING SOLN MULT VEIN C.N.P. [address] [place] [address] Referral ID Status Reason Start Date Expiration Date Visits V isits Requested Authorized [id number] Authorized 04/14/2022 04/14/2023 3 3 Encounter Details Date Type Department Care Team Description 05/26/2022 Procedure visit [facility] Juanita Vaz ricose Vein Lower Medicine and Surgery CLAUDIA Malone, C. N.P. Extremity With Pain in [address] Bilateral [place], [place] [address] [place] [phone] [place], [place] [phone] (Work) [phone] Social History Tobacco Use Types Packs/Day Years [...] or relatives? How often do you attend judaism or More than 4 times per year 01/28/2021 anglican services? Do you belong to any clubs or Yes 01/28/2021 organizations such as judaism groups, unions, fraternal or athletic groups, or [...] place to sleep or slept in a group home (including now)? Education Answer Date Recorded What is the highest level of school Master's degree (e.g., M A, MS, 03/30/2019 you have completed or the highest Armando, MEd, ELECTRICAL AUTOMATION ENGINEER, ALL) degree you have received? Sex Assigned at Date Recorded Female 07/26/2020 9:06 PM CDT documented as of this encounter Procedure Notes Juanita Vaz APRN, C.N.P. - 05/26/2022 11:00 AM CDTAssociated Order(s): Sclerotherapy Pre-Procedure Diagnose(s): Varicose Vein Lower Extremity With Pain Bilateral Post-Procedure Diagnose(s): Varicose Vein Lower Extremity With Pain Bilateral Sclerotherapy Date/Time: 05/26/2022 3:32 PM Performed by: Juanita Vaz APRN, C.N.P. Authorized by: Juanita Vaz APRN, C.N.P. Care team members present 1. Juanita Vaz APRN, C.N.P. PROCEDURE DETAILS Sclerosant: polidocanol Polidocanol concentration: 1% (0.1% injecting a total of 38 cc) Needle gauge: [...] of injection: yes CONSENT Consent obtained: written PRE-PROCEDURE DETAILS Indications: [...] and Juanita Vaz, Surgery CLAUDIA, C.N.P. [address] [place] [phone] (Wo rk) 09/08/2022 Comprehensive Visit Aesthetic Medicine and Lucero Pritchard, Surgery MJayda, Ph.D. [address] [place] [phone] (Wo rk) documented as of this encounter Procedures Procedure Name Priority Date/Time Associated Diagnosis Comme nts SCLEROTHERAPY Routine 05/26/2022 3:32 PM Varicose Vein Lower R esults for this CDT Extremity With Pain procedur e are in the Bilateral results section . documented in this encounter Results Sclerotherapy (05/26/2022 3:32 PM CDT) Narrative MMODAL [...] Varicose Vein Lower Extremity With Pain Bilateral documented in this encounter Care Teams Human Performance Consultant Relationship Specialty Start Date End Date Elsewhere, Pcp PCP - General Internal Medicine 07/03/17 documented as of this encounter
--- OUTSIDE RECORDS SUMMARY | 2022-07-30 19:52 | XMS_ITS | Encounter Summary ---
:1945 Author Organization [facility] Address [address] [place] [address] Care Team Providers Name Role Phone Elsewhere, Pcp Primary Care Provider Unavailable Reason for Referral Outpatient (Routine) - Authorized Specialty Diagnoses / Procedures Referred By Contact Refer red To Contact Diagnoses Varicose Vein Lower Extremity With Pain Bilateral [facility] Sclerotherapy [place] INJ SCLEROSING SOLN MULT VEIN C.N.P. [address] [place], [place] [phone] Referral ID Status Reason Start Date Expiration Date Visits V isits Requested Authorized [id number] Authorized 11/04/2021 11/04/2022 1 1 UTIVE LEGAL SECRETARY Reason for Visit Outpatient (Routine) - Closed Specialty Diagnoses / Procedures Referred By Contact Refer red To Contact Diagnoses Varicose Vein Lower Extremity With Pain Bilateral [facility] Procedures Sclerotherapy [place] INJ SCLEROSING SOLN MULT VEIN C.N.P. [address] [place] [address] Referral ID Status Reason Start Date Expiration Date Visits Requ ested Visits Authorized [id number] Closed 07/22/2021 07/22/2022 2 2 Encounter Details Date Type Department Care Team Description 11/04/2021 Procedure visit [facility] Juanita Vaz Ct ricose Vein Lower Medicine and Surgery CLAUDIA Malone CAnali NAnaliP. Extremity With Pain in [place], [address] [facility] Bilateral (Primary [place], [place] Dx) [address] [facility] [address] [place], [place] [phone] (Work) [phone] Social History Tobacco Use Types Packs/Day Years [...] More than 4 times per year 01/28/2021 oriental orthodox services? Do you belong to any clubs [...] have completed or the highest Armando, MEd, WELDING PRODUCTION SUPERVISOR, ALL) degree you have received? Sex Assigned at Date Recorded Female 07/26/2020 9:06 PM CDT documented as of this encounter Procedure Notes Juanita Vaz APRN, C.N.P. - 11/04/2021 10:15 AM CSTAssociated Order(s): Sclerotherapy Post-Procedure Diagnose(s): Varicose Vein Lower Extremity With Pain Bilateral Sclerotherapy Date/Time: 11/04/2021 10:21 AM Performed by: Juanita Vaz APRN, C.N.P. Authorized by: Juanita Vaz APRN, C.N.P. Care team members present 1. Juanita Vaz APRN, C.N.P. PROCEDURE DETAILS Sclerosant: polidocanol Polidocanol concentration: 1% (0.1% injecting a total of 20 cc) Needle gauge: 30g VeinLite used: yes [...] ANESTHESIA Anesthesia method: none LOCATION Treated vein: varicose and reticular. Aspect: posterior, medial and lateral Site: calf Laterality: bilateral POST-PROCEDURE DETAILS Number of veins treated: 2 or more Pressure compression garments applied post-operatively: yes Procedure completed successfully: yes Complications: no apparent complications UTIVE LEGAL SECRETARY documented in this encounter Plan of Treatment Upcoming Encounters Date Type Specialty Care Team Description 09/08/2022 Procedure visit Aesthetic Medicine and Juanita Vaz, Surgery CLAUDIA, C.N.P. [address] [place] [phone] (Charlotte bentley) 09/08/2022 Comprehensive Visit Aesthetic Medicine Lucero Mckeon, Surgery MJayda, Ph.D. [address] [place] [phone] (Charlotte bentley) documented as of this encounter Procedures Procedure Name Priority Date/Time Associated Diagnosis Comme nts SCLEROTHERAPY Routine 11/04/2021 10:21 AM Varicose Vein Lower Results for this EXECUTIVE LEGAL SECRETARY Extremity With Pain procedur e are in the Bilateral results section . documented in this encounter Results Sclerotherapy (11/04/2021 10:21 AM EXECUTIVE LEGAL SECRETARY) Narrative MMODAL - 11/04/2021 10:21 AM EXECUTIVE LEGAL SECRETARY Juanita Vaz APRN C.N.P. ? 11/04/2021 12:17 PM Sclerotherapy Date/Time: 11/04/2021 10:21 AM Performed by: Juanita Vaz APRN C. N.P. Authorized by: Juanita Vaz APRN, C .N.PAnali Care team members present 1. Juanita Vaz APRN, C.N.Brianne. PROCEDURE DETAILS Sclerosant: polidocanol Polidocanol concentration: 1% (0.1% inje cting a total of 20 cc) Needle gauge: 30g VeinLite used: yes [...] ANESTHESIA Anesthesia method: none LOCATION Treated vein: varicose and reticular. Aspect: posterior, medial and lateral Site: calf Laterality: bilateral POST-PROCEDURE DETAILS Number of veins [...] Primary documented in this encounter Care Teams Procurement Consultant Relationship Specialty Start Date End Date Elsewhere, Pcp PCP - General Internal Medicine 07/03/17 documented as of this encounter
--- OUTSIDE RECORDS SUMMARY | 2022-07-30 19:52 | XMS_ITS | Encounter Summary ---
:1945 Author Organization [facility] Address [address] [place] [address] Care Team Providers Name Role Phone Titus Medina MD Primary Care Provider Encounter Details Date Type Department Care Team Description 10/27/1993 Office Visit [place] Pillo King MD Diffuse cystic [address] LINIC mastopathy [address] [place], [place] [phone] (Wo rk) Social History Tobacco Use Types Packs/Day Years Used Date Smoking Tobacco: Never Assessed Sex Assigned at Date Recorded Not on file documented as of this encounter Plan of Treatment Not on filedocumented as of this encounter Visit Diagnoses Diagnosis Diffuse cystic mastopathy documented in this encounter Care Teams Legal Financial Specialist Relationship Specialty Start Date End Date Titus Medina MD PCP - General 09/16/1996 03/17/15 documented as of this encounter
--- OUTSIDE RECORDS SUMMARY | 2022-07-30 19:52 | XMS_ITS | Encounter Summary ---
:1945 Author Organization [facility] Address [address] [place] [address] Care Team Providers Name Role Phone Elsewhere, Pcp Primary Care Provider Unavailable Encounter Details Date Type Department Care Team Description 01/09/2022 Ancillary Procedure Department of Vascular Social History [...] or relatives? How often do you attend yarsani or More than 4 times per year 01/28/2021 shinto services? Do you belong to any clubs or Yes 01/28/2021 organizations such as yarsani groups, unions, fraternal or athletic groups, or [...] place to sleep or slept in a alf (including now)? Education Answer Date Recorded What is the highest level of school Master's degree (e.g., M A, MS, 03/30/2019 you have completed or the highest Armando, MEd, CHAIN MACHINE OPERATOR, ALL) degree you have received? Sex Assigned at Date Recorded Female 07/26/2020 9:06 PM CDT documented as of this encounter Plan of Treatment Upcoming Encounters Date Type Specialty Care Team Description 09/08/2022 Procedure visit Aesthetic Medicine and Juanita Vaz, Surgery TRUCKLOAD OWNER OPERATOR, C.N.P. [address] [place] [phone] (Wo rk) 09/08/2022 Comprehensive Visit Aesthetic Medicine and Lucero Pritchard, Surgery M.DAnali, Ph.D. [address] [place] [phone] (Wo rk) documented as of this encounter Procedures Procedure Name Priority Date/Time Associated Diagnosis Comme nts VASCULAR IMAGE EXAM Routine 01/09/2022 12:00 AM R esults for this CDT procedure are i n the results section. documented in this encounter Results Legs-Vascular Image Exam (01/09/2022 12:00 AM CDT) Specimen (Source) Anatomical Location Collection Method / Collectio n Time Received Time / Laterality Volume Narrative IIMS - 01/09/2022 9:33 AM CDT This order has been created [...] on filedocumented in this encounter Care Teams Actuarial Manager Relationship Specialty Start Date End Date Elsewhere, Pcp PCP - General Internal Medicine 07/03/17 documented as of this encounter
--- OUTSIDE RECORDS SUMMARY | 2022-07-30 19:53 | XMS_ITS | Encounter Summary ---
:1945 Author Organization [facility] Address [address] [place] [address] Care Team Providers Name Role Phone Elsewhere, Pcp Primary Care Provider Unavailable Reason for Visit Outpatient (Routine) - Closed Specialty Diagnoses / Procedures Referred By Contact Refer red To Contact Diagnoses Varicose Vein Lower Extremity With Pain Bilateral [facility]ita [facility] Procedures Sclerotherapy C.N.P. [address] [place] [address] Referral ID Status Reason Start Date Expiration Date Visits Requ ested Visits Authorized [id number] Closed 08/01/2020 08/01/2021 5 5 Encounter Details Date Type Department Care Team Description 03/04/2021 Procedure visit Department of Juanita Vaz Varicose Vein Lower Vascular Medicine in R, CLAUDIA, C. N.P. Extremity With Pain Campus, [place] [address] [facility] Bilateral (Primary [address] [place] [address] Dx) [place] [phone] Social History Tobacco Use Types Packs/Day Years [...] or relatives? How often do you attend religion or More than 4 times per year 01/28/2021 jehovah's witness services? Do you belong to any clubs or Yes 01/28/2021 organizations such as religion groups, unions, fraternal or athletic groups, or [...] place to sleep or slept in a senior care (including now)? Education Answer Date Recorded What is the highest level of school Master's degree (e.g., M A, MS, 03/30/2019 you have completed or the highest Armando, MEd, LADLE REPAIRER, ALL) degree you have received? Sex Assigned at Date Recorded Female 07/26/2020 9:06 PM CDT documented as of this encounter Last Filed Vital Signs Vital Sign Reading Time Taken Comments Blood Pressure 119/68 03/04/2021 12:55 PM CDT Pulse - - Temperature - - Respiratory Rate - - Oxygen Saturation - - Inhaled Oxygen Concentration - - Weight 67.7 kg (149 lb 4 oz) 03/04/2021 12:55 PM CDT Height - - Body Mass Index 24.57 09/11/2020 6:07 AM COAL PICKER documented in this encounter Procedure Notes Juanita Vaz, CLAUDIA, C.N.P. - 03/04/2021 1:00 PM CDT Procedures Proceduralist: JOSHUA Informed consent obtained: Yes I discussed the options at this point including sclerotherapy. I described the potential risks and benefits of sclerotherapy including, but not limited to allergic reaction, hypersensitivity with skin breakdown and scarring, DVT, arterial occlusion, hyperpigmentation, and vein recurrence. The patient u nderstands and wishes to proceed. Procedural pause performed: Yes Procedural pause was conducted to verify correct patient identity, procedure to be performed, consented, and as applicable, correct side and site. Photos obtained: Yes Images of varicose veins/spider veins of legs were obtained after consent using [facility] approvedand secure device and loaded to patient's medical record. Brief History: Ms. Sheikh returns for a repeated session of sclerotherapy in the setting of continued varicose veins with pain bilateral lower extremities. Preparation of legs: Agent used: Isopropyl ETOH was used to cleanse the legs Agent used: Polidocanol 0.2% injecting a total of 22 cc Number of injections: Approximately 50-75 injections [place] used: 30 gauge Complications: No apparent complications Recommendations: The patient left the room with full-length graduated elastic compression stockings in place and in excellent condition. Utilization of thigh high compression stockings for the next 24 hours straight; followed by utilization of stockings for the next five to seven days was advised. Additional sessions may be of benefit and I advised to call or return with any questions, concerns, or worsening symptoms. Patient Education: I performed counseling/coordination of care which including verbal discussion of test results, impressions and/or recommended treatment options, with risks and benefits, instructionsand follow-up, compliance management, education and risk factor reduction. Patient was ready to learn, no apparent learning barriers were identified. Learning preferences include watching and listening. Patient expressed verbal understanding of the content of these diagnosis and treatment plan(s), and all questions were answered to apparent satisfaction. documented in this encounter Plan of Treatment Upcoming Encounters Date Type Specialty Care Team Description 09/08/2022 Procedure visit Aesthetic Medicine and Juanita Vaz, Surgery CLAUDIA, C.N.P. [address] [place] [phone] (Charlotte bentley) 09/08/2022 Comprehensive Visit Aesthetic Lucero Arita Surgery M.D., Ph.D. [address] [place] [phone] (Charlotte bentley) documented as of this encounter Visit Diagnoses Diagnosis Varicose Vein Lower Extremity With Pain Bilateral - Primary documented in this encounter Administered Medications Inactive Administered Medications - up to 3 most recent administrations Medication Order MAR Action Action Date Dose Rate Site polidocanoL 1 % (20 mg/2 mL) Given 03/04/2021 1:12 PM CDT 2 mL injection 2 mL (ASCLERA) 2 mL, intravenous, Once, On Wed03/04/21 at 1315, For 1 dose, Dilute 20 mg in 10 cc's of saline and administer to effect documented in this encounter Care Teams Animal Caregiver Relationship Specialty Start Date End Date Elsewhere, Pcp PCP - General Internal Medicine 07/03/17 documented as of this encounter
--- OUTSIDE RECORDS SUMMARY | 2022-07-30 19:53 | XMS_ITS | Encounter Summary ---
:1945 Author Organization [facility] Address [address] [place] [address] Care Team Providers Name Role Phone Elsewhere, Pcp Primary Care Provider Unavailable Reason for Visit Outpatient (Routine) - Closed Specialty Diagnoses / Procedures Referred By Contact Refer red To Contact Diagnoses Varicose Vein Lower Extremity With Pain Bilateral Juanita Vaz APRNVa [facility] Procedures Sclerotherapy C.N.P. [address] [place] [phone] Referral ID Status Reason Start Date Expiration Date Visits Requ ested Visits Authorized [id number] Closed 08/01/2020 08/01/2021 5 5 Encounter Details Date Type Department Care Team Description 01/09/2021 Procedure visit Department of Juanita Vaz Varicose Vein Lower Vascular Medicine in [place], CLAUDIA, C. N.P. Extremity With Pain [place], [place] [address] [facility] Bilateral (Primary [address] [place] [address] Dx) [place] [phone] Social History Tobacco Use Types Packs/Day Years [...] or relatives? How often do you attend advent or More than 4 times per year 01/28/2021 buddhist services? Do you belong to any clubs or Yes 01/28/2021 organizations such as advent groups, unions, fraternal or athletic groups, or [...] have completed or the highest Armando, MEd, PAPER MACHINE OPERATOR, ALL) degree you have received? Sex Assigned at Date Recorded Female 07/26/2020 9:06 PM CDT documented as of this encounter Last Filed Vital Signs Vital Sign Reading Time Taken Comments Blood Pressure 119/69 01/09/2021 2:52 PM CDT Pulse 65 01/09/2021 2:52 PM CDT Temperature - - Respiratory Rate - - Oxygen Saturation - - Inhaled Oxygen Concentration - - Weight 67 kg (147 lb 11.3 oz) 01/09/2021 2:52 PM CDT Height - - Body Mass Index 24.31 09/11/2020 6:07 AM COMPRESSOR STATION CHIEF ENGINEER documented in this encounter Procedure Notes Radha Mobley APRN, C.N.P. - 01/09/2021 3:00 PM CDTAssociated Order(s): SCLEROTHERAPY Procedure(s): SCLEROTHERAPY Proceduralist: Radha Mobley APRN, PAUL; Juanita Vaz APRN, CNP Informed consent obtained: Yes Patient was advised of the risks associated with sclerotherapy including, but not limited to slight tingling/burning which goes away within five to ten minutes, bruising 5% chance, hyperpigmentation about 20% chance (which fades away in about two months), small clot formation (usually dissolves or treated during followup), allergic reaction, ulcer formation (less than 1% chance), and a 0.1% risk of DVT or arterial injury. The patient understands and wishes to proceed. Procedural pause performed: Yes Procedural pause was conducted to verify correct patient identity, procedure to be performed, consented, and as applicable, correct side and site. Photos obtained: Yes Images of varicose veins/spider veins of legs were obtained after consent using [facility] approvedand secure device and loaded to patient's medical record. Brief History: Ms. Sheikh is a very pleasant 75-year-old female returning for sclerotherapy of painful varicosities of the bilateral lower extremities. She was last evaluated on August 01, 2020 at which time she had a repeat bilateral lower extremity venous insufficiency study. She was subsequentlyevaluated by Dr. Mello vascular surgery on December 04, 2020 who recommended either radiofrequency ablation or treatment with the vena seal of the great saphenous veins below the knees versus ongoing use of the compression stockings and sclerotherapy. Patient has decided to continue with sclerotherapy asshe has noted improvement in the symptoms after sclerotherapy. She continues to note visible and painful varicosities involving the anterior, medial and posterior aspect of the calves, knees and thighs. Preparation of legs: Agent used: Isopropyl ETOH was used to cleanse the legs Agent used: 2 ml of 1% Polidocanol diluted in 20 ml of normal saline and 2 ml of 0.5% Polidocanol diluted in 10 ml of normal saline. Medication was injected in its total to the medial, anterior, lateral, and posterior aspect of the bilateral ankles, calves, knees and thighs. Number of injections: Approximately 75-100 injections Trenton used: 30 gauge Complications: No apparent complications following the procedure. Recommendations: The patient left the room with knee-high graduated elastic compression stockings followed by KAILYN wraps in place and in excellent condition. Utilization of thigh-high compression stockings for the next 72 hours straight; followed by utilization of stockings for the next 5-7 days on during the day and off at night, was advised. Additional sessions may be of benefit and I advised patient to call or return with any questions, [...] and Juanita Vaz, Surgery CLAUDIA, C.N.P. [address] [place] [phone] (Charlotte rk) 09/08/2022 Comprehensive Visit Aesthetic Medicine and Lucero Pritchard, Surgery Francesca, Ph.D. [address] [place] [phone] (Charlotte bentley) documented as of this encounter Procedures Procedure Name Priority Date/Time Associated Diagnosis Comme nts SCLEROTHERAPY Routine 01/09/2021 3:00 PM Varicose Vein Lower R esults for this CDT Extremity With Pain procedur e are in the Bilateral results section . documented in this encounter Results Sclerotherapy (01/09/2021 3:00 PM CDT) Narrative MMODAL - 01/09/2021 3:00 PM CDT Radha Mobley APRN, C.N.P. ? 01/09/2021 ??4:42 PM Proceduralist: Radha Mobley APRN, CNP; Juanita Vaz APRN, CNP Informed consent obtained: ??Yes Patient was advised of the risks associa jimena with sclerotherapy including, but not limited to slight tin gling/burning which goes away within five to ten minutes, bruisin g 5% chance, hyperpigmentation about 20% chance (whic h fades away in about two months), small clot formation (usually d issolves or treated during followup), allergic reaction, ulc er formation (less than 1% chance), and a 0.1% risk of DVT or ar terial injury. The patient understands and wishes to procee d. ?? Procedural pause performed: Yes Procedural pause was conducted to verify correct patient identity, procedure to be performed, con sented, and as applicable, correct side and site. Photos obtained: ??Yes Images of varicose veins/spider veins of legs were obtained after consent using [facility] approved and s ecure device and loaded to patient's medical record. ?? Brief History: Ms. Sheikh is a very pl easant 75-year-old female returning for sclerotherapy of painful v aricosities of the bilateral lower extremities. ??She was l ast evaluated on August 01, 2020 at which time she had a repeat bilateral lower extremity venous insufficiency study. ??She was castro bsequently evaluated by Dr. Mello vascular surgery on December 04, 2020 who recommended either radiofrequency ablation or treatm ent with the vena seal of the great saphenous veins below the knee s versus ongoing use of the compression stockings and sclerother apy. ??Patient has decided to continue with sclerotherapy as she kulkarni s noted improvement in the symptoms after sclerotherapy. ??She continues to note visible and painful varicosities involving the a nterior, medial and posterior aspect of the calves, knees an d thighs. Preparation of legs: Agent used: ??Isopr opyl ETOH was used to cleanse the legs Agent used: ??2 ml of 1% Polidocanol dil uted in 20 ml of normal saline and 2 ml of 0.5% Polidocanol dilu jimena in 10 ml of normal saline. ??Medication was injected in its total to the medial, anterior, lateral, and posterior aspect of the bilateral ankles, calves, knees and thighs. Number of injections: ??Approximately 75 -100 injections Trenton used: 30 gauge Complications: ??No apparent complicatio ns following the procedure. Recommendations: The patient left the ro om with knee-high graduated elastic compression stockings followed by KAILYN wraps in place and in excellent condition. Utiliz ation of thigh-high compression stockings for the next 72 ho urs straight; followed by utilization of stockings for the next 5- 7 days on during the day and off at night, was advised. Additiona l sessions may be of benefit and I advised patient to call or return with any questions, concerns, or worsening sympto ms. Patient Education: I performed counselin g/coordination of care which including verbal discussion of leonid t results, impressions and/or recommended treatment options, wi th risks and benefits, instructions and follow-up, compliance m anagement, education and risk factor reduction. Patient was ready to learn, no apparent learning barriers were identified. ??Learning preferences inclu de watching and listening. Patient expressed verbal understanding o f the content of these diagnosis and treatment plan(s), and all questions were answered to apparent satisfaction. Juanita Vaz APRN, C.N.P. PROCEDURE/MINOR SURGICAL ORDERABLES Performing Organization Address City/State/ZIP Code Phon e Number MMODAL MMODAL NA documented in this encounter Visit Diagnoses Diagnosis Varicose Vein Lower Extremity With Pain Bilateral - Primary documented in this encounter Administered Medications Inactive Administered Medications - up to 3 most recent administrations Medication Order MAR Action Action Date Dose Rate Site polidocanoL 0.5 % (10 mg/2 mL) Given 01/09/2021 4:12 PM CDT 2 mL injection 2 mL (ASCLERA) 2 mL, intravenous, Once, On Jessica 01/09/21 at 1615, For 1 dose, Dilute 10 mg in 10 cc/saline polidocanoL 1 % (20 mg/2 mL) injection 2 mL Given 01/09/2021 3:2 4 PM CDT 2 mL (ASCLERA) 2 mL, intravenous, Once, On Jessica 01/09/21 at 1530, For 1 dose documented in this encounter Care Teams Bakeshop Cleaner Relationship Specialty Start Date End Date Elsewhere, Pcp PCP - General Internal Medicine 07/03/17 documented as of this encounter
--- OUTSIDE RECORDS SUMMARY | 2022-07-30 19:53 | XMS_ITS | Encounter Summary ---
:1945 Author Organization [facility] Address [address] [place] [address] Care Team Providers Name Role Phone Elsewhere, Pcp Primary Care Provider Unavailable Encounter Details Date Type Department Care Team Description 03/04/2021 Ancillary Procedure Department of Vascular Social History [...] or relatives? How often do you attend bahai or More than 4 times per year 01/28/2021 restorationist services? Do you belong to any clubs or Yes 01/28/2021 organizations such as bahai groups, unions, fraternal or athletic groups, or [...] have completed or the highest Armando, MEd, FLY FISHING GUIDE, ALL) degree you have received? Sex Assigned at Date Recorded Female 07/26/2020 9:06 PM CDT documented as of this encounter Plan of Treatment Upcoming Encounters Date Type Specialty Care Team Description 09/08/2022 Procedure visit Aesthetic Medicine and Juanita Vaz, Surgery ALGEBRA TEACHER, C.N.P. [address] [place] [phone] (Wo rk) 09/08/2022 Comprehensive Visit Aesthetic Medicine and Lucero Pritchard, Surgery M.DAnali, Ph.D. [address] [place] [phone] (Wo rk) documented as of this encounter Procedures Procedure Name Priority Date/Time Associated Diagnosis Comme nts VASCULAR IMAGE EXAM Routine 03/04/2021 1:09 PM Re sults for this CDT procedure are i n the results section. documented in this encounter Results Legs-Vascular Image Exam (03/04/2021 1:09 PM CDT) Specimen (Source) Anatomical Collection Method Collection Time Re ceived Time Location / / Volume Laterality 03/04/2021 1:07 PM CDT Narrative [facility] - 03/04/2021 1:09 PM CDT This order has been created and [...] on filedocumented in this encounter Care Teams Roof Fixer Relationship Specialty Start Date End Date Elsewhere, Pcp PCP - General Internal Medicine 07/03/17 documented as of this encounter
--- OUTSIDE RECORDS SUMMARY | 2022-07-30 19:53 | XMS_ITS | Encounter Summary ---
:1945 Author Organization [facility] Address [address] [place] [address] Care Team Providers Name Role Phone Elsewhere, Pcp Primary Care Provider Unavailable Reason for Referral Physical Therapy (Routine) - Closed Specialty Diagnoses / Procedures Referred By Contact Refer red To Contact Diagnoses Primary Osteoarthritis Hip Left Jarred Jason M.D. [address] [place], [place] [phone] Referral ID Status Reason Start Date Expiration Date Visits Requ ested Visits Authorized [id number] Closed Other 12/05/2020 12/05/2021 20 20 RIALS PLANNING MANAGER Reason for Visit Reason Comments Post-op Outpatient (Routine) - Closed Specialty Diagnoses / Procedures Referred By Contact Refer red To Contact Orthopedic Surgery Sho Song APRN, [facility] C.N.P. [address] [place] [phone] Referral ID Status Reason Start Date Expiration Date Visits Requ ested Visits Authorized [id number] Closed 09/10/2020 09/10/2021 1 1 Encounter Details Date Type Department Care Team Description 12/05/2020 Office Visit Department of Ángel Apodaca Primary Os teoarthritis Orthopedic Surgery Francesca Moe Hip Left (Primary Dx) in [place], [address] [place], [place] [address] [facility] [address] [place], [place] [phone] (Work) [phone] Social History Tobacco Use Types Packs/Day Years [...] or relatives? How often do you attend lutheran or More than 4 times per year 01/28/2021 methodist services? Do you belong to any clubs or Yes 01/28/2021 organizations such as lutheran groups, unions, fraternal or athletic groups, or [...] have completed or the highest Armando, MEd, DIRECTOR OF EVENT MANAGEMENT, ALL) degree you have received? Sex Assigned at Date Recorded Female 07/26/2020 9:06 PM CDT documented as of this encounter Progress Notes Jarred Jason M.D. - 12/05/2020 1:30 PM CST SUBJECTIVE REASON FOR VISIT Left Total hip arthroplasty follow-up evaluation HISTORY OF PRESENT ILLNESS Yamileth Sheikh is a 75 y.o. female who presents 3 months after Left Total Hip Arthoplasty. She is doing well. She reports she occasionally has bilateral hip pain when she first gets up in the morning however quickly improves with ambulation. She requires no pain medications. She walks without the assistance of any gait aids. She is able to walk up to 2 miles before stopping. Her only complaint isthat she feels that she is slightly weaker on the left side. She is interested in pursuing physical therapy to work on strengthening. OBJECTIVE PHYSICAL EXAM ?? General: Awake and alert. No acute distress ?? Skin: Well-healed incision ?? Neurologic: SILT in bilateral lower extremities ?? Vascular: Distal pulses are palpable ?? Extremities: Patient walks with a nonantalgic gait. Leg lengths are equal Hip Function Analysis ?? Full Extension: 0 degrees (neutral) ?? Full Flexion: 110 degrees ?? Abduction:+30 degrees ?? Adduction: + 20 degrees (adduction) ?? External Rotation: <+30 degrees (external rotation) ?? Internal Rotation: + 10 degrees (internal rotation) ?? Positive Trendelenberg:no ?? Leg Length Discrepancy:legs equal ?? IMAGING Plain radiographs show a left total hip arthroplasty with well-fixed implants in good position. Right total hip arthroplasty performed at outside facility is also well fixed. Minimal anteversion on theright acetabular component. ASSESSMENT / PLAN #1 Primary Osteoarthritis Hip Left Overall she is doing very well following her left total hip arthroplasty. She is pleased with the outcome of surgery. She does feel like she has some weakness in the left hip. We will send her with a prescription for physical therapy to work on hip strengthening and gait training. We had a good discussion regarding ongoing care, activity recommendations, and follow-up. All questions were answered. RIALS PLANNING MANAGER Associated attestation - Ángel Apodaca M.D. - 12/06/2020 9:39 AM MATERIALS PLANNING MANAGER documented in this encounter Plan of Treatment Upcoming Encounters Date Type Specialty Care Team Description 09/08/2022 Procedure visit Aesthetic Medicine and Juanita Vaz, Surgery HUMANITIES AND LANGUAGES PROFESSOR, C.N.P. [address] [place] [address] (Charlotte bentley) 09/08/2022 Comprehensive Visit Aesthetic Lucero Arita Surgery M.D., Ph.D. [address] [place] [address] (Charlotte bentley) Scheduled Referrals Name Type Priority Associated Diagnoses Order S nilda PT [facility] Outpatient Referral Routine Primary Osteoarthriti s Expected: referral Hip Left 12/05/2020 (Approximate), Expires: 12/06/2023 documented as of this encounter Visit Diagnoses Diagnosis Primary Osteoarthritis Hip Left - Primar y documented in this encounter Care Teams Semiconductor Assembler Relationship Specialty Start Date End Date Elsewhere, Pcp PCP - General Internal Medicine 07/03/17 documented as of this encounter
--- OUTSIDE RECORDS SUMMARY | 2022-07-30 19:53 | XMS_ITS | Encounter Summary ---
:1945 Author Organization [facility] Address [address] [place] [address] Care Team Providers Name Role Phone Elsewhere, Pcp Primary Care Provider Unavailable Encounter Details Date Type Department Care Team Description 01/09/2021 Admin Visit [facility] [address] [place] [phone] Social History Tobacco Use Types Packs/Day Years [...] or relatives? How often do you attend rastafarian or More than 4 times per year 01/28/2021 adventism services? Do you belong to any clubs or Yes 01/28/2021 organizations such as rastafarian groups, unions, fraternal or athletic groups, or [...] place to sleep or slept in a fci (including now)? Education Answer Date Recorded What is the highest level of school Master's degree (e.g., M A, MS, 03/30/2019 you have completed or the highest Armando, MEd, COORDINATOR OF LIBRARY SERVICES, ALL) degree you have received? Sex Assigned at Date Recorded Female 07/26/2020 9:06 PM CDT documented as of this encounter Plan of Treatment Upcoming Encounters Date Type Specialty Care Team Description 09/08/2022 Procedure visit Aesthetic Medicine and Juanita Vaz, Surgery MOTION STUDY TECHNICIAN, C.N.P. [address] [place] [address] (Wo rk) 09/08/2022 Comprehensive Visit Aesthetic Medicine Lucero Mckeon, Surgery M.DAnali, Ph.D. [address] [place] [address] (Wo rk) documented as of this encounter Visit Diagnoses Not on filedocumented in this encounter Care Teams Rn Home Health Relationship Specialty Start Date End Date Elsewhere, Pcp PCP - General Internal Medicine 07/03/17 documented as of this encounter
--- OUTSIDE RECORDS SUMMARY | 2022-07-30 19:53 | XMS_ITS | Encounter Summary ---
:1945 Author Organization [facility] Address [address] [place] [address] Care Team Providers Name Role Phone Elsewhere, Pcp Primary Care Provider Unavailable Reason for Visit Outpatient (Routine) - Closed Specialty Diagnoses / Procedures Referred By Contact Refer red To Contact Diagnoses Varicose Vein Lower Extremity With Pain Bilateral [facility] Sclerotherapy C.N.P. [address] [place] [phone] Referral ID Status Reason Start Date Expiration Date Visits Requ ested Visits Authorized [id number] Closed 08/01/2020 08/01/2021 5 5 Encounter Details Date Type Department Care Team Description 04/14/2021 Procedure visit Department of Juanita Vaz Varicose Vein Lower Vascular Medicine in [place], CLAUDIA, C. N.P. Extremity With Pain [place], [place] [address] [facility] Bilateral (Primary [address] [place] [address] Dx) [place] [phone] Social History Tobacco Use Types Packs/Day Years [...] or relatives? How often do you attend hinduism or More than 4 times per year 01/28/2021 muslim services? Do you belong to any clubs or Yes 01/28/2021 organizations such as hinduism groups, unions, fraternal or athletic groups, or [...] completed or the highest Armando, MEd, RESEARCH EXECUTIVE, ALL) degree you have received? Sex Assigned at Date Recorded Female 07/26/2020 9:06 PM CDT documented as of this encounter Last Filed Vital Signs Vital Sign Reading Time Taken Comments Blood Pressure 126/77 04/14/2021 7:46 AM CDT Pulse 66 04/14/2021 7:46 AM CDT Temperature - - Respiratory Rate - - Oxygen Saturation - - Inhaled Oxygen Concentration - - Weight - - Height - - Body Mass Index - - documented in this encounter Procedure Notes Juanita Vaz, DYE RANGE OPERATOR CLOTH, C.N.P. - 04/14/2021 7:45 AM CDTAssociated Order(s): SCLEROTHERAPY Procedure(s): SCLEROTHERAPY Pre-Procedure Diagnose(s): Varicose Vein Lower Extremity With Pain Bilateral Proceduralist: JOSHUA Informed consent obtained: Yes I [...] of legs were obtained after consent using [facility] approvedand secure device and loaded to patient's medical record. Brief History: Ms. Kori presents for a repeated session of sclerotherapy in the setting of persistent, bilateral lower extremity varicose veins with pain. She has noted some subtle improvement but does have continued evidence of varicosities within the left anterior thigh, left medial calf, and right medial calf and posterior calf. Preparation of legs: Agent used: Isopropyl ETOH was used to cleanse the legs Agent used: Polidocanol 0.2% injecting a total of 22 cc Number of injections: Approximately 75-100 injections [place] used: 30 gauge Complications: No apparent complications Recommendations: The patient left the room with full-length graduated elastic compression stockings in place and in excellent condition. Utilization of thigh high compression stockings for the next 72 hours [...] and Juanita Vaz, Surgery CLAUDIA, C.N.P. [address] [place] [phone] (Charlotte bentley) 09/08/2022 Comprehensive Visit Aesthetic Lucero Arita Surgery M.D., Ph.D. [address] [place] [phone] (Charlotte bentley) documented as of this encounter Procedures Procedure Name Priority Date/Time Associated Diagnosis Comme nts SCLEROTHERAPY Routine 04/14/2021 7:45 AM Varicose Vein Lower R esults for this CDT Extremity With Pain procedur e are in the Bilateral results section . documented in this encounter Results Sclerotherapy (04/14/2021 7:45 AM CDT) Narrative MMODAL - 04/14/2021 7:45 AM CDT Juanita Vaz, CLAUDIA, C.N.P. ? 04/14/2021 12:36 PM Proceduralist: ??JOSHUA Informed consent obtained: ??Yes I discussed the options at this point in cluding sclerotherapy. I described the potential risks and benefi ts of sclerotherapy including, but not limited to allergic r eaction, hypersensitivity with skin breakdown and scarring, DVT, a rterial occlusion, hyperpigmentation, and vein recurrence. The patient understands and wishes to proceed. ?? Procedural pause performed: Yes Procedural pause was conducted to verify correct patient identity, procedure to be performed, con sented, and as applicable, correct side and site. Photos obtained: ??Yes Images of varicose veins/spider veins of legs were obtained after consent using [facility] approved Urbita device and loaded to patient's medical record. ?? Brief History: Ms. Sheikh presents for a repeated session of sclerotherapy in the setting of persiste nt, bilateral lower extremity varicose veins with pain. ??Sh e has noted some subtle improvement but does have continued evid ence of varicosities within the left anterior thigh, left med ial calf, and right medial calf and posterior calf. Preparation of legs: Agent used: ??Isopr opyl ETOH was used to cleanse the legs Agent used: ??Polidocanol 0.2% injecting a total of 22 cc Number of injections: ??Approximately 75 -100 injections [place] used: 30 gauge Complications: ??No apparent complicatio ns Recommendations: The patient left the ro om with full-length graduated elastic compression stockings in place and in excellent condition. Utilization of thigh high com pression stockings for the next 72 hours straight; followed by utilization of stockings for the next five to seven days was advi sed. Additional sessions may be of benefit and [...] all questions were answered to apparent satisfaction. Efrain Brooks APRNNJuana PROCEDURE/MINOR SURGICAL ORDERABLES Performing [...] polidocanoL 1 % (20 mg/2 mL) Given 04/14/2021 8:11 AM CDT 2 mL injection 2 mL (ASCLERA) 2 mL, intravenous, Once, On 04/14/21 at 0800, For 1 dose, Dilute 20 mg in 10 cc's of saline and administer to effect documented in this encounter Care Teams Video Software Engineer Relationship Specialty Start Date End Date Elsewhere, Pcp PCP - General Internal Medicine 07/03/17 documented as of this encounter
--- OUTSIDE RECORDS SUMMARY | 2022-07-30 19:53 | XMS_ITS | Encounter Summary ---
:1945 Author Organization [facility] Address [address] [place] [address] Care Team Providers Name Role Phone Elsewhere, Pcp Primary Care Provider Unavailable Reason for Referral Outpatient (Routine) - Closed Specialty Diagnoses / Procedures Referred By Contact Refer red To Contact Diagnoses Varicose Vein Lower Extremity With Pain Bilateral Juanita Vaz APRN, [facility] Procedures Sclerotherapy [place] INJ SCLEROSING SOLN MULT VEIN C.N.P. [address] [place] [address] Referral ID Status Reason Start Date Expiration Date Visits Requ ested Visits Authorized [id number] Closed 07/28/2021 07/28/2022 3 3 Encounter Details Date Type Department Care Team Description 07/28/2021 Orders Only Department of Vascular Juanita Vaz, Varicose Vein Lower Medicine in [facility] CLAUDIA, C.N .P. Extremity With Pain [place] [address] [facility] Bilateral (Primary Dx) [address] [place] [phone] Social History Tobacco Use Types Packs/Day Years [...] or relatives? How often do you attend anglican or More than 4 times per year 01/28/2021 hoahaoism services? Do you belong to any clubs or Yes 01/28/2021 organizations such as anglican groups, unions, fraternal or athletic groups, or [...] have completed or the highest Armando, MEd, CLAIM REPRESENTATIVE, ALL) degree you have received? Sex Assigned at Date Recorded Female 07/26/2020 9:06 PM CDT documented as of this encounter Plan of Treatment Upcoming Encounters Date Type Specialty Care Team Description 09/08/2022 Procedure visit Aesthetic Medicine and Juanita Vaz, Surgery DIMENSION WAREHOUSE SUPERVISOR, C.N.P. [address] [place] [phone] (Charlotte bentley) 09/08/2022 Comprehensive Visit Aesthetic Medicine Lucero Mckeon, Surgery M.DAnali, Ph.D. [address] [place] [phone] (Charlotte bentley) Scheduled Orders Name Type Priority Associated Diagnoses Order S chedule Sclerotherapy Procedures Routine Varicose Vein Lower 3 Occur rences starting Extremity With Pain 07/28/20 21 until Bilateral 07/28/2024 documented as of this encounter Visit Diagnoses Diagnosis Varicose Vein Lower Extremity With Pain Bilateral - Primary documented in this encounter Care Teams Tank Wagon Operator Relationship Specialty Start Date End Date Elsewhere, Pcp PCP - General Internal Medicine 07/03/17 documented as of this encounter
--- OUTSIDE RECORDS SUMMARY | 2022-07-30 19:53 | XMS_ITS | Encounter Summary ---
:1945 Author Organization [facility] Address [address] [place] [address] Care Team Providers Name Role Phone Elsewhere, Pcp Primary Care Provider Unavailable Reason for Referral Specialty Diagnoses / Procedures Referred By Contact Refer red To Contact Stephy Giles M.D. [facility] [address] [place] [phone] Referral ID Status Reason Start Date Expiration Date Visits Requ ested Visits Authorized UCTION PLANNER SCHEDULER Encounter Details Date Type Department Care Team Description 08/12/2021 Orders Only RST PCP [facility] T[facility]AT Stephy Giles M.D. [address] [place], [place] [phone] (Wo rk) Social History Tobacco Use Types [...] or relatives? How often do you attend restorationism or More than 4 times per year 01/28/2021 hindu services? Do you belong to any clubs or Yes 01/28/2021 organizations such as restorationism groups, unions, fraternal or athletic groups, or [...] level of school Master's degree (e.g., M Gage, [place], 03/30/2019 you have completed or the highest Armando, MEd, INSTRUCTOR TRAINER CANINE SERVICE, ALL) degree you have received? Sex Assigned at Date Recorded Female 07/26/2020 9:06 PM CDT documented as of this encounter Plan of Treatment Upcoming Encounters Date Type Specialty Care Team Description 09/08/2022 Procedure visit Aesthetic Medicine and Juanita Vaz, Surgery INSTRUMENT CALIBRATOR, C.N.P. [address] [place] [phone] (Wo rk) 09/08/2022 Comprehensive Visit Aesthetic Medicine Lucero Mckeon, Surgery M.D., Ph.D. [address] [place] [phone] (Wo rk) Scheduled Referrals Name Type Priority Associated Order Schedule Diagnoses Covid immunization Outpatient Referral Routine Ex pected: office visit Booster 021 (Approximate), Expires: 08/12/2022 documented as of this encounter Visit Diagnoses Not on filedocumented in this encounter Care Teams Engineering Geologist Relationship Specialty Start Date End Date Elsewhere, Pcp PCP - General Internal Medicine 07/03/17 documented as of this encounter
--- OUTSIDE RECORDS SUMMARY | 2022-07-30 19:53 | XMS_ITS | Encounter Summary ---
:1945 Author Organization [facility] Address [address] [place] [address] Care Team Providers Name Role Phone Elsewhere, Pcp Primary Care Provider Unavailable Reason for Visit Reason Comments Follow-up Encounter Details Date Type Department Care Team Description 12/16/2020 Clinical Communication Division of Vascular Kendall Mello Follow-up and Endovascular Emerald MJayda Surgery in [place], [facility] [address] [place], [place] [address] [facility] [address] [place], [place] [phone] (Work) [phone] Social History Tobacco Use Types Packs/Day Years [...] or relatives? How often do you attend mu-ism or More than 4 times per year 01/28/2021 mormonism services? Do you belong to any clubs or Yes 01/28/2021 organizations such as mu-ism groups, unions, fraternal or athletic groups, or [...] have completed or the highest Armando, MEd, ECHOCARDIOGRAPH TECH, ALL) degree you have received? Sex Assigned at Date Recorded Female 07/26/2020 9:06 PM CDT documented as of this encounter Miscellaneous Notes Telephone Encounter - Giselle Ortiz - 12/16/2020 4:08 PM CDT I have patient scheduled for her Sclerotherapy in February. She has been called and sent out PAG. She didn't need prior auth. Medicare pt. Telephone Encounter - Sherry Gonzalez R.N. - 12/16/2020 2:17 PM CDT She will just see Juanita. The order from Riaz is to see her. Riaz does not need to see her back. Telephone Encounter - Ricky Casillas - 12/16/2020 1:26 PM CDT Victoria, Can you look at the orders from Dr. Mello on 12/04/20 and Juanita on 08/01/2020. Does Dr. Mello need to see this patient in December or January as a consult or a return. To me it looks as if he has seen the patient before and should be a f/u. Then as for Juanita, she needs to be set up after Dr. Mello sees the patient in return or after a procedure? Am I deciphering this correctly? Patient called and got JOYCE in IR today, and I don't want to call her back until i'm sure what we aredoing. Please advise. When replying, please route message to the following pool: P RST VSC SCHEDULING documented in this encounter Plan of Treatment Upcoming Encounters Date Type Specialty Care Team Description 09/08/2022 Procedure visit Aesthetic Medicine and Juanita Vaz, Surgery HELP DESK SUPPORT, C.N.P. [address] [place] [phone] (Charlotte bentley) 09/08/2022 Comprehensive Visit Aesthetic Medicine Lucero Mckeon, Surgery MJayda, Ph.D. [address] [place] [phone] (Charlotte bentley) documented as of this encounter Visit Diagnoses Not on filedocumented in this encounter Care Teams Coil Inspector Relationship Specialty Start Date End Date Elsewhere, Pcp PCP - General Internal Medicine 07/03/17 documented as of this encounter
--- OUTSIDE RECORDS SUMMARY | 2022-07-30 19:53 | XMS_ITS | Encounter Summary ---
:1945 Author Organization [facility] Address [address] [place] [address] Care Team Providers Name Role Phone Elsewhere, Pcp Primary Care Provider Unavailable Reason for Visit Reason Comments Med Refill Encounter Details Date Type Department Care Team Description 08/27/2021 [facility] Ref[facility] [place], [place] [address] [facility] [address] [place] [address] [place] [phone] Social History Tobacco Use Types Packs/Day Years [...] or relatives? How often do you attend gnosticism or More than 4 times per year 01/28/2021 hindu services? Do you belong to any clubs or Yes 01/28/2021 organizations such as gnosticism groups, unions, fraternal or athletic groups, or [...] place to sleep or slept in a chcf (including now)? Education Answer Date Recorded What is the highest level of school Master's degree (e.g., M A, MS, 03/30/2019 you have completed or the highest Armando, Cora, BUSINESS SERVICES TECH, ALL) degree you have received? Sex Assigned at Date Recorded Female 07/26/2020 9:06 PM CDT documented as of this encounter Miscellaneous Notes Telephone Encounter - Alma Rosa Regalado R.N., CDCES - 09/01/2021 2:16 PM HOME HEALTH ATTENDANT Prescription renewal request did not meet nurse protocol because: patient has not been seen within the past 12 months Protocol utilized: Prescription Renewal Request for Medications: Division of Endocrinology, Diabetes, Metabolism and Nutrition. HEALTH ATTENDANT documented in this encounter Plan of Treatment Upcoming Encounters Date Type Specialty Care Team Description 09/08/2022 Procedure visit Aesthetic Medicine and Juanita Vaz, Surgery SUPERINTENDENT BUILDING, C.N.P. [address] [place] [phone] (Wo rk) 09/08/2022 Comprehensive Visit Aesthetic Medicine Lucero Mckeon, Surgery M.D., Ph.D. [address] [place] [phone] (Wo rk) documented as of this encounter Visit Diagnoses Not on filedocumented in this encounter Care Teams Heat Treat Supervisor Relationship Specialty Start Date End Date Elsewhere, Pcp PCP - General Internal Medicine 07/03/17 documented as of this encounter
--- OUTSIDE RECORDS SUMMARY | 2022-07-30 19:53 | XMS_ITS | Encounter Summary ---
:1945 Author Organization [facility] Address [address] [place] [address] Care Team Providers Name Role Phone Elsewhere, Pcp Primary Care Provider Unavailable Encounter Details Date Type Department Care Team Description 01/28/2021 Ancillary Procedure Department of Ophthalmology Social History Tobacco Use Types Packs/Day Years [...] More than 4 times per year 01/28/2021 taoist services? Do you belong to any clubs [...] have completed or the highest Armando, MEd, SAW FEEDER, ALL) degree you have received? Sex Assigned at Date Recorded Female 07/26/2020 9:06 PM CDT documented as of this encounter Plan of Treatment Upcoming Encounters Date Type Specialty Care Team Description 09/08/2022 Procedure visit Aesthetic Medicine and Juanita Vaz, Surgery OPTOELECTRONICS ENGINEER, C.N.P. [address] [place] [address] (Wo rk) 09/08/2022 Comprehensive Visit Aesthetic Lucero Arita, Surgery M.DAnali, Ph.D. [address] [place] [phone] (Wo rk) documented as of this encounter Procedures Procedure Name Priority Date/Time Associated Comments Diagnosis OPHTHALMOLOGY IMAGE Routine 01/28/2021 12:00 Resu lts for this EXAM AM CDT procedure are i n the results section. documented in this encounter Results Eyes Pentacam-Ophthalmology Image Exam (01/28/2021 12:00 AM CDT) Specimen (Source) Anatomical Location Collection Method / Collectio n Time Received Time / Laterality Volume Narrative IIMS - 01/28/2021 2:40 PM CDT This order has been created [...] on filedocumented in this encounter Care Teams Channel Cementer Outsole Machine Relationship Specialty Start Date End Date Elsewhere, Pcp PCP - General Internal Medicine 07/03/17 documented as of this encounter
--- OUTSIDE RECORDS SUMMARY | 2022-07-30 19:53 | XMS_ITS | Encounter Summary ---
:1945 Author Organization [facility] Address [address] [place] [address] Care Team Providers Name Role Phone Elsewhere, Pcp Primary Care Provider Unavailable Encounter Details Date Type Department Care Team Description 03/27/2021 Admin Visit [facility] [address] [place] [phone] Social History Tobacco Use Types Packs/Day [...] or relatives? How often do you attend restoration or More than 4 times per year 01/28/2021 anabaptist services? Do you belong to any clubs or Yes 01/28/2021 organizations such as restoration groups, unions, fraternal or athletic groups, or [...] have completed or the highest Armando, MEd, FIELD MANAGER, ALL) degree you have received? Sex Assigned at Date Recorded Female 07/26/2020 9:06 PM CDT documented as of this encounter Plan of Treatment Upcoming Encounters Date Type Specialty Care Team Description 09/08/2022 Procedure visit Aesthetic Medicine and Juanita Vaz, Surgery WEATHER OBSERVER, C.N.P. [address] [place] [phone] (Wo rk) 09/08/2022 Comprehensive Visit Aesthetic Medicine Lucero Mckeon, Surgery M.DAnali, Ph.D. [address] [place] [phone] (Wo rk) documented as of this encounter Visit Diagnoses Not on filedocumented in this encounter Care Teams District Traffic Chief Relationship Specialty Start Date End Date Elsewhere, Pcp PCP - General Internal Medicine 07/03/17 documented as of this encounter
--- OUTSIDE RECORDS SUMMARY | 2022-07-30 19:53 | XMS_ITS | Encounter Summary ---
:1945 Author Organization [facility] Address [address] [place] [address] Care Team Providers Name Role Phone Elsewhere, Pcp Primary Care Provider Unavailable Reason for Referral Outpatient (Routine) - Closed Specialty Diagnoses / Procedures Referred By Contact Refer red To Contact Vascular Medicine Diagnoses Varicose Vein Lower Extremity With Pain Bilateral Michele Mello [place] M.D. [address] [place] [address] Referral ID Status Reason Start Date Expiration Date Visits Requ ested Visits Authorized [id number] Closed 12/04/2020 12/04/2021 1 1 ION DREDGE DUMPING SUPERVISOR Reason for Visit Outpatient (Routine) - Closed Specialty Diagnoses / Procedures Referred By Contact Refer red To Contact Vascular Surgery Michele Mello M.D. [facility] [address] [place] [phone] Referral ID Status Reason Start Date Expiration Date Visits Requ ested Visits Authorized [id number] Closed 08/15/2020 08/15/2021 1 1 Encounter Details Date Type Department Care Team Description 12/04/2020 Office Visit Division of Vascular Michele Mello Vein Lower and Endovascular Francesca Corbin Extremity With Pain Surgery in [place] [address] [address] [facility] Bilateral (Primary [place], [place] Dx) [address] [place] [phone] [place], [place] [phone] (Work) [phone] Social History Tobacco Use Types Packs/Day Years [...] or relatives? How often do you attend sabianist or More than 4 times per year 01/28/2021 jew services? Do you belong to any clubs or Yes 01/28/2021 organizations such as sabianist groups, unions, fraternal or athletic groups, or [...] have completed or the highest Armando, MEd, POLICY WRITER SALES, ALL) degree you have received? Sex Assigned at Date Recorded Female 07/26/2020 9:06 PM CDT documented as of this encounter Progress Notes Michele Mello M.D. - 12/04/2020 3:20 PM CST Yamileth Sheikh : 1945 Visit Date: 12/04/20 SUBJECTIVE CHIEF COMPLAINT/ REASON FOR VISIT: HISTORY OF PRESENT ILLNESS: Yamileth Sheikh is a 75 y.o. female who returns for bilateral lower extremity varicose veins. Shehas been having sclerotherapy sessions. She is concerned that her symptoms are persistent. She is concerned that it her ultrasound demonstrated ???deep vein problems?? . Her symptoms currently are heaviness and achiness in both calves. This happens particular when she stands up for long periods of time. They resolve after elevating. Currently she says that her left leg is worse than the right. No symptoms in the thighs. The current medications, allergies, medical, surgical, social, and family history sections of the chart have been reviewed and updated as pertinent. OBJECTIVE VITAL SIGNS There were no vitals filed for this visit. PHYSICAL EXAM: General: Alert and oriented, No acute distress. Extremities: Warm, well perfused, no edema. Very minimal varicosities, almost nonexistent. No signs of chronic venous insufficiency. VASCULAR EXAM:: Pulses Exam DIAGNOSTIC FINDINGS: I have reviewed the patient's current laboratory, imaging, and other diagnosticstudies as pertinent. Previous duplex ultrasound was straight competent deep system bilaterally. Incompetent great saphenous veins in the calf bilaterally, small saphenous vein, and left anterior accessory saphenous vein. 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 I discussed with the patient that she would be a candidate for radiofrequency ablation or treatment with the vena seal of the great saphenous veins below the knees. Explained to the patient that right now her limbs are not threatened andthat her prognosis overall is very good, and that treatment would be quality of life and symptom control indication. I explained also the patient should continue with compression stockings, particularly if they help with her symptoms. The patient told me that she would like to continue with clear scler otherapy currently, and she understands that if this symptoms are not resolved, that the best optionwould be to perform vena seal ablation of bilateral great saphenous vein, and left anterior accessory saphenous vein. I will communicate with Juanita Vaz about our discussion, the patient will continue with sclerotherapy sessions at this point. Patient is very appreciative of the care received during this consultation, understands and agrees with the plan, all questions answered. 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 ION DREDGE DUMPING SUPERVISOR documented in this encounter Plan of Treatment Upcoming Encounters Date Type Specialty Care Team Description 09/08/2022 Procedure visit Aesthetic Medicine and Juanita Vaz, Surgery UTILITY SYSTEM REPAIRER, C.N.P. [address] [place] [phone] (Wo rk) 09/08/2022 Comprehensive Visit Aesthetic Medicine and Lucero Pritchard, Surgery MJayda, Ph.D. [address] [place] [address] (Charlotte rk) Scheduled Referrals Name Type Priority Associated Diagnoses Order S [facility] hospital[facility] Vascular Medicine Outpatient Referral Routine Varicose Vein Lo wer Expected: - Venous / Extremity With Pain 12/05/19 21 varicose Bilateral (Approximate), vein/sclero Expires: consult (clinic) 12/05/2023 documented as of this encounter Visit Diagnoses Diagnosis Varicose Vein Lower Extremity With Pain Bilateral - Primary documented in this encounter Care Teams Engine Repairer Service Relationship Specialty Start Date End Date Elsewhere, Pcp PCP - General Internal Medicine 07/03/17 documented as of this encounter
--- OUTSIDE RECORDS SUMMARY | 2022-07-30 19:53 | XMS_ITS | Encounter Summary ---
:1945 Author Organization [facility] Address [address] [place] [address] Care Team Providers Name Role Phone Elsewhere, Pcp Primary Care Provider Unavailable Encounter Details Date Type Department Care Team Description 04/14/2021 Ancillary Procedure Department of Vascular Social History [...] or relatives? How often do you attend jain or More than 4 times per year 01/28/2021 adventism services? Do you belong to any clubs or Yes 01/28/2021 organizations such as jain groups, unions, fraternal or athletic groups, or [...] place to sleep or slept in a [facility] (including now)? Education Answer Date Recorded What is the highest level of school Master's degree (e.g., M A, MS, 03/30/2019 you have completed or the highest Armando, MEd, DENTAL ASSOCIATE, ALL) degree you have received? Sex Assigned at Date Recorded Female 07/26/2020 9:06 PM CDT documented as of this encounter Plan of Treatment Upcoming Encounters Date Type Specialty Care Team Description 09/08/2022 Procedure visit Aesthetic Medicine and Juanita Vaz, Surgery CARBON COATER MACHINE OPERATOR, C.N.P. [address] [place] [phone] (Wo rk) 09/08/2022 Comprehensive Visit Aesthetic Medicine and Lucero Pritchard, Surgery M.DAnali, Ph.D. [address] [place] [phone] (Wo rk) documented as of this encounter Procedures Procedure Name Priority Date/Time Associated Diagnosis Comme nts VASCULAR IMAGE EXAM Routine 04/14/2021 8:09 AM Re sults for this CDT procedure are i n the results section. documented in this encounter Results Legs-Vascular Image Exam (04/14/2021 8:09 AM CDT) Specimen (Source) Anatomical Collection Method Collection Time Re ceived Time Location / / Volume Laterality 04/14/2021 8:06 AM CDT Narrative [facility] - 04/14/2021 8:09 AM CDT This order has been created [...] on filedocumented in this encounter Care Teams Straw Hat Machine Operator Relationship Specialty Start Date End Date Elsewhere, Pcp PCP - General Internal Medicine 07/03/17 documented as of this encounter
--- OUTSIDE RECORDS SUMMARY | 2022-07-30 19:53 | XMS_ITS | Encounter Summary ---
:1945 Author Organization [facility] Address [address] [place] [address] Care Team Providers Name Role Phone Elsewhere, Pcp Primary Care Provider Unavailable Encounter Details Date Type Department Care Team Description 10/02/2020 Clinical Communication Department of Hermelindo Dexter, Orthopedic Surgery in [place], [place] [address] [place] [address] Social History Tobacco Use Types Packs/Day Years [...] or relatives? How often do you attend evangelical or More than 4 times per year 01/28/2021 shinto services? Do you belong to any clubs or Yes 01/28/2021 organizations such as evangelical groups, unions, fraternal or athletic groups, or [...] have completed or the highest Armando, MEd, SALES UTILITY REPRESENTATIVE, ALL) degree you have received? Sex Assigned at Date Recorded Female 07/26/2020 9:06 PM CDT documented as of this encounter Miscellaneous Notes Telephone Encounter - Hermelindo Dexter M.D. - 10/02/2020 4:23 PM CST Miscellaneous Note: Two week phone call status post L ALEKS. She is overall doing well. Pain is well controlled off narcotics. All questions were answered. - Incision: Well healed with no erythema or drainage. - Mobilization: Mobilizing well with the walker or cane. NING AND DEVELOPMENT COORDINATOR documented in this encounter Plan of Treatment Upcoming Encounters Date Type Specialty Care Team Description 09/08/2022 Procedure visit Aesthetic Medicine and Juanita Vaz, Surgery DELIVERER MERCHANDISE, C.N.P. [address] [place] [phone] (Charlotte bentley) 09/08/2022 Comprehensive Visit Aesthetic Medicine Lucero Mckeon, Surgery MJayda, Ph.D. [address] [place] [phone] (Charlotte bentley) documented as of this encounter Visit Diagnoses Not on filedocumented in this encounter Care Teams Steam Locomotive Firer/Fireman Relationship Specialty Start Date End Date Elsewhere, Pcp PCP - General Internal Medicine 07/03/17 documented as of this encounter
--- OUTSIDE RECORDS SUMMARY | 2022-07-30 19:53 | XMS_ITS | Encounter Summary ---
:1945 Author Organization [facility] Address [address] [place] [address] Care Team Providers Name Role Phone Elsewhere, Pcp Primary Care Provider Unavailable Reason for Visit Reason Comments Eye Exam floaters right eye and dry eyes, both eyes Outpatient (Routine) - Closed Specialty Diagnoses / Procedures Referred By Contact Refer red To Contact Ophthalmology Diagnoses Dry Eye Syndrome Bilateral Merrill Harris M.D. [facility] [address] [place] [phone] Referral ID Status Reason Start Date Expiration Date Visits V isits Requested Authorized [id number] Closed Specialty 07/19/2020 07/19/2021 1 1 Services Required Encounter Details Date Type Department Care Team Description 01/28/2021 Comprehensive Visit Department of Ananth, Intraoc ular Lens Implant Status Post (Primary Dx); Ophthalmology in Yue Vera O.D. Dry Eye Syndrome Bilateral; [place], [place] [address] [facility] Refraction Disorder; 200 [place], [place] Glaucoma Family History; [place] [address] Endothelial Corneal Dystrophy Bilateral [phone] Social History Tobacco Use Types Packs/Day Years [...] More than 4 times per year 01/28/2021 denominational services? Do you belong to any clubs [...] to sleep or slept in a senior living (including now)? Education Answer Date Recorded What is the highest level of school Master's degree (e.g., Jody Almonte, MS, 03/30/2019 you have completed or the highest Armando, MEd, BRIDGE WORKER APPRENTICE, ALL) degree you have received? Sex Assigned at Date Recorded Female 07/26/2020 9:06 PM CDT documented as of this encounter Progress Notes Yue Wadsworth O.D. - 01/28/2021 1:15 PM CDT #1 Dry Eye Syndrome Bilateral Mild, chronic condition. Plan: Recommended regular in prophylactic use of non-preserved artificial tears. #2 Intraocular Lens Implant Status Post Good visual results, stable. Plan: Monitor periodically. #3 Refraction Disorder Plan: Spectacle prescription given. Minimal change noted. #4 Glaucoma Family History No signs of disease in patient. Plan: Monitor periodically. 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 Plan: Get baseline Pentacam images, both eyes. [facility] will contact patient with the results and recommendations for further care through the portal. documented in this encounter Plan of Treatment Upcoming Encounters Date Type Specialty Care Team Description 09/08/2022 Procedure visit Aesthetic Medicine and Juanita Vaz, Surgery ANESTHESIOLOGIST/PHYSICIAN, C.N.P. [address] [place] [address] (Wo rk) 09/08/2022 Comprehensive Visit Aesthetic Lucero Arita, Surgery M.Norma, Ph.D. [address] [place] [address] (Wo rk) documented as of this encounter Procedures Procedure Name Priority Date/Time Associated Diagnosis Comme nts OPHTHALMOLOGY - GENERAL Routine 01/28/2021 2:49 PM Dry Eye Syn drome CONSULT (CLINIC) CDT Bilateral documented in this encounter Results Ophthalmology - General consult (clinic) (01/28/2021 2:49 PM CDT) Merrill Harris M.D. OUTPATIENT REFERRAL ORDERABL ES Scheimpflug Tomography (Pentacam) - OU - Both Eyes (01/28/2021 2:34 PM CDT) Specimen (Source) Anatomical Location Collection Method / Collectio n Time Received Time / Laterality Volume Narrative OPHTHALMOLOGY IMAGING EXAM - 01/29/20 21 5:55 PM CDT Right Eye Reliability was good. Left Eye Reliability was good. Notes Right eye: ??[place] in normal position, tr fermin flattening of isopachs, no significant central posterior elevation changes Left eye: ??[place] in normal position, mil d distortion of isopachs, no central posterior elevation changes, but superior changes are present. Yue Wadsworth O.D. OPHGENOVEVA OTHER Performing Organization Address City/State/ZIP Code Phon e Number OPHTHALMOLOGY IMAGING EXAM documented in this encounter Visit Diagnoses Diagnosis Intraocular Lens Implant Status Post - P rimary Dry Eye Syndrome Bilateral Refraction Disorder Glaucoma Family History Endothelial Corneal Dystrophy Bilateral Endothelial Corneal Dystrophy Bilateral documented in this encounter Care Teams Boom Tender Relationship Specialty Start Date End Date Elsewhere, Pcp PCP - General Internal Medicine 07/03/17 documented as of this encounter
--- OUTSIDE RECORDS SUMMARY | 2022-07-30 19:53 | XMS_ITS | Encounter Summary ---
:1945 Author Organization [facility] Address [address] [place] [address] Care Team Providers Name Role Phone Elsewhere, Pcp Primary Care Provider Unavailable Encounter Details Date Type Department Care Team Description 08/12/2021 Orders Only RST PCP [facility] TESHAT Stephy Giles M.D. [address] [place], [place] [phone] (Wo rk) Social History [...] level of school Master's degree (e.g., Jody Almonte MS, 03/30/2019 you have completed or the highest Armando, MEd, PEST LOCATOR, ALL) degree you have received? Sex Assigned at Date Recorded Female 07/26/2020 9:06 PM CDT documented as of this encounter Plan of Treatment Upcoming Encounters Date Type Specialty Care Team Description 09/08/2022 Procedure visit Aesthetic Medicine and Juanita Vaz, Surgery PIG CASTING MACHINE OPERATOR, C.N.P. [address] [place] [phone] (Charlotte bentley) 09/08/2022 Comprehensive Visit Aesthetic Medicine Lucero Mckeon, Surgery M.Norma, Ph.D. [address] [place] [phone] (Charlotte rk) documented as of this encounter Visit Diagnoses Not on filedocumented in this encounter Care Teams Heading Pinner Relationship Specialty Start Date End Date Elsewhere, Pcp PCP - General Internal Medicine 07/03/17 documented as of this encounter
--- OUTSIDE RECORDS SUMMARY | 2022-07-30 19:53 | XMS_ITS | Encounter Summary ---
:1945 Author Organization [facility] Address [address] [place] [address] Care Team Providers Name Role Phone Elsewhere, Pcp Primary Care Provider Unavailable Encounter Details Date Type Department Care Team Description 12/05/2020 Diagnostic Department of [place], Loss Hearing Otorhinolaryngology in Clive Solano [place], [place] Efrain HarrisCAnaliCAnali-A Bilateral (Primary [address] [facility] [address] [place]x) [place] [phone] [facility] [phone] [place] [address] Social History Tobacco Use Types Packs/Day Years [...] More than 4 times per year 01/28/2021 anabaptism services? Do you belong to any clubs [...] have completed or the highest Armando, MEd, COLLECTION ADMINISTRATOR, ALL) degree you have received? Sex Assigned at Date Recorded Female 07/26/2020 9:06 PM CDT documented as of this encounter Progress Notes Екатерина Echeverria Au.D., C.C.CAnali-Gage - 12/05/2020 8:30 AM CST SUBJECTIVE REFERRAL: Self. CHIEF COMPLAINT/REASON FOR VISIT Hearing aid follow-up HISTORY Yamileth Sheikh is a 75 y.o. female with an asymmetrical sensorineural hearing loss, left ear poorer than right. She reports bilateral tinnitus. She has had an MRI which does not demonstrate retrocochlear pathology, and has been referred for hearing aids by??Dr. Timmy Wynn. ?? She reports??bilateral tinnitus, and difficulty hearing male speakers. She reports most frustration with her tinnitus, and reports interest in options to help manage her tinnitus. ?? Patient was fit with amplification on??04/27/2019.??Since initial fitting, both earmolds have been remade. Hearing Aid Information Left Right Detective [place] ReSound ReSound Model Linx 3D 577 Linx 3D 577 Style BTE (htmngx-dfe-nnv) BTE (lmtxfo-pph-xaa) Serial Number [id number] Battery Size 13 13 ? Coupling Custom earmold, ERP PROGRAMMER#5 Custom earmold, ERP PROGRAMMER#5 ? Warranty Date 05/12/2022 05/12/2022 Trial Period End Date 06/12/2019 She was last seen for hearing aid check in June 2020. OBJECTIVE Otoscopic evaluation was performed and indicated clear ear canals bilaterally. ASSESSMENT/PLAN Ear mold tubing was replaced on both hearing aids as patient reported the fit on the right was pulling short. The patient reports regular use of her hearing aids with benefit. She reports occasional use of the tinnitus setting in notes that this tends to drain the battery more quickly. She reports benefit whenin conversation, notes greater when as of traffic when outdoors, and reports she listens through thedevices at home listening to music. No programming changes were made at this time based on patient report. Follow-up in 6 months for routine hearing aid check is recommended. An order was placed to assist with scheduling. The patient purchased additional batteries today. #1 Loss Hearing Sensorineural Bilateral ERY ASSOCIATE documented in this encounter Plan of Treatment Upcoming Encounters Date Type Specialty Care Team Description 09/08/2022 Procedure visit Aesthetic Medicine and Juanita Vaz, Surgery GATE TECHNICIAN, C.N.P. [address] [place] [phone] ( mc) 09/08/2022 Comprehensive Visit Aesthetic Medicine Lucero Mckeon, Surgery M.D., Ph.D. [address] [place] [phone] (Charlotte bentley) Scheduled Orders Name Type Priority Associated Diagnoses Order S chedule Hearing aid check Audiology Routine Loss Hearing Sensorineu ral Expected: 06/07/2021 Bilateral (Approximate), Expires: 2023 documented as of this encounter Visit Diagnoses Diagnosis Loss Hearing Sensorineural Bilateral - P rimary documented in this encounter Care Teams Acetylene Cutter Relationship Specialty Start Date End Date Elsewhere, Pcp PCP - General Internal Medicine 07/03/17 documented as of this encounter
--- OUTSIDE RECORDS SUMMARY | 2022-07-30 19:53 | XMS_ITS | Encounter Summary ---
:1945 Author Organization [facility] Address [address] [place] [address] Care Team Providers Name Role Phone Elsewhere, Pcp Primary Care Provider Unavailable Encounter Details Date Type Department Care Team Description 01/28/2021 Ancillary Department of [place], Endothelial Co rneal Procedure Ophthalmology in Yue Vera O.D. Dystrophy Bilateral [place], [place] [address] [facility] [address] [place] [phone] Social History Tobacco Use Types Packs/Day Years [...] have completed or the highest Armando, MEd, CONTRACTOR BUYER, ALL) degree you have received? Sex Assigned at Date Recorded Female 07/26/2020 9:06 PM CDT documented as of this encounter Plan of Treatment Upcoming Encounters Date Type Specialty Care Team Description 09/08/2022 Procedure visit Aesthetic Medicine and Juanita Vaz, Surgery SERVICE SUPPORT REPRESENTATIVE, C.N.P. [address] [place] [address] (Wo rk) 09/08/2022 Comprehensive Visit Aesthetic Medicine Lucero Mckeon, Surgery M.Trever., Ph.D. [address] [place] [address] (Wo rk) documented as of this encounter Procedures Procedure Name Priority Date/Time Associated Diagnosis Comme nts SCHEIMPFLUG Routine 01/28/2021 2:34 PM Endothelial Corneal Re sults for this TOMOGRAPHY CDT Dystrophy Bilateral procedur e are in (PENTACAM) - OU - the result s BOTH EYES section. documented in this encounter Results Scheimpflug Tomography (Pentacam) - OU - Both Eyes (01/28/2021 2:34 PM CDT) Specimen (Source) Anatomical Location Collection Method / Collectio n Time Received Time / Laterality Volume Narrative OPHTHALMOLOGY IMAGING EXAM - 01/29/20 21 5:55 PM CDT Right Eye Reliability was good. Left Eye Reliability was good. Notes Right eye: ??[place] in normal position, tr fermin flattening of isopachs, no significant central posterior elevation changes Left eye: ??[place] in normal position, mil d distortion of isopachs, no central posterior elevation changes, but superior changes are present. Yue FRAUSTO OTHER Performing Organization Address City/State/ZIP Code Phon e Number OPHTHALMOLOGY IMAGING EXAM documented in this encounter Visit Diagnoses Diagnosis Endothelial Corneal Dystrophy Bilateral documented in this encounter Care Teams Manager Child Relationship Specialty Start Date End Date Elsewhere, Pcp PCP - General Internal Medicine 07/03/17 documented as of this encounter
--- OUTSIDE RECORDS SUMMARY | 2022-07-30 19:53 | XMS_ITS | Encounter Summary ---
:1945 Author Organization [facility] Address [address] [place] [address] Care Team Providers Name Role Phone Elsewhere, Pcp Primary Care Provider Unavailable Reason for Visit Outpatient (Routine) - Closed Specialty Diagnoses / Procedures Referred By Contact Refer red To Contact Radiology Diagnoses Arthroplasty Total Hip Replacement Status Post Left l kori Sho Song APRN, Rst Rad Dx Rogo 14 Procedures DX HIP AND PELVIS LEFT 4+ VIEWS RAD DX LOWER EXTREM MULTI VIEW ORS C.N.P. 200 [facility] [address] [place] [address] [place], [place] [phone] Referral ID Status Reason Start Date Expiration Date Visits Requ ested Visits Authorized [id number] Closed 12/05/2020 12/05/2021 1 1 Encounter Details Date Type Department Care Team Description 12/05/2020 Hospital Encounter Department of Sho Song Total Radiology, Marino Moe APRN, Hip Replace [facility], in C.N.P. Status Post Left [place], [place] [address] [facility] [address] [place] [phone] Social History Tobacco Use Types Packs/Day Years [...] or relatives? How often do you attend episcopalian or More than 4 times per year 01/28/2021 judaism services? Do you belong to any clubs or Yes 01/28/2021 organizations such as episcopalian groups, unions, fraternal or athletic groups, or [...] have completed or the highest Armando, MEd, PIPE LAYER, ALL) degree you have received? Sex Assigned at Date Recorded Female 07/26/2020 9:06 PM CDT documented as of this encounter Medications at Time of Discharge Medication Sig Dispensed Refills Start Date End Date amoxicillin (AMOXIL) as needed. Prior to 0 2019 500 mg capsule dental work. cholecalciferol Take 2,400 mcg by 0 05/24/2015 (VITAMIN D3) 50 mcg mouth every morning. (2,000 Unit) capsule 2400mcg co-enzyme Q-10 Take 100 mg by mouth 0 (COQ-10) 100 mg every morning. capsule estradiol (ESTRACE) Insert 1 application 0 2014 0.1 mg/g (0.01%) into the vagina as vaginal cream directed. 3 times a week on the labia estradiol (ESTRING) 2 Insert 1 application 0 03/04 mg (7.5 mcg /24 hour) into the vagina as vaginal ring directed. Every 3 months hydrocortisone Insert into the rectum 0 9 (ANUSOL-HC) 2.5 % as needed. rectal cream irbesartan (AVAPRO) Take 150 mg by mouth 0 150 mg tablet daily. L-LYSINE ORAL Take 1 tablet by mouth 0 05/24/2015 every morning. 1000 mg lisinopriL Take 1 tablet by mouth 0 03/20/2010 (PRINIVIL,ZESTRIL) 20 daily. mg tablet rosuvastatin (CRESTOR) Take 5 mg by mouth 0 5 mg tablet every morning. tretinoin (RETIN-A) Apply 1 application 10 019 0.05 % cream topically at bedtime. valacyclovir HCl Take 1 tablet by mouth 0 (VALTREX ORAL) as needed. alendronate (FOSAMAX) Take 1 tablet (70 mg 12 tablet 3 06/0509/01/2021 70 mg tablet total) by mouth every 7 (seven) days. 1 tablet weekly on an empty stomach, remain upright for at least 30 minutes aspirin 81 mg chewable Chew 1 tablet (81 mg 84 tablet 0 05/202011/04/2021 tablet total) 2 (two) times a day. Take 2 times per day for 6 weeks following surgery. After 6 weeks, consult primary care provider for continued anticoagulation recommendations. calcium carbonate-mag Chew 1 tablet daily. 0 04/14/2021 hydroxid (MYLANTA ULTRA) 700-300 mg per chewable tablet celecoxib (CeleBREX) Take 1 capsule (200 mg 14 capsule 0 05/202011/04/2021 200 mg capsule total) by mouth daily for 14 days. omeprazole (PriLOSEC) Take 1 capsule (40 mg 14 capsule 0 05/202011/04/[address] capsule total) by mouth every morning before breakfast for 14 days. Take daily for 2 weeks following surgery ondansetron ODT Take 1 tablet (4 mg 10 tablet 1 09/10/2020 11/04/2021 (ZOFRAN-ODT) 4 mg total) by mouth every disintegrating tablet 8 (eight) hours as needed for nausea or vomiting. oxyCODONE (ROXICODONE) Take 1 tablet (5 mg 12 tablet 0 05/202004/14/2021 5 mg immediate release total) by mouth every tabletIndications: 4 (four) hours as Acute Pain Exception needed for severe pain or score 7-10 of 10 Indication: Acute Pain Exception. Take 1 tab for pain 7-10. Wean off narcotic pain medications as soon as possible. sennosides-docusate Take 1 tablet by mouth 90 tablet 1 05/202004/14/2021 sodium (SENOKOT-S) 2 (two) times a day. 8.6-50 mg per tablet Use to prevent constipation while taking narcotic pain medication traMADoL (ULTRAM) 50 Take 1 tablet (50 mg 15 tablet 0 09/1010/31/2021 mg tabletIndications: total) by mouth every Acute Pain Exception 6 (six) hours as needed for moderate pain or score 4-6 of 10 Indications: Acute Pain Exception. Take for pain 4-6. Wean off narcotic medications or medications with narcotic properties the such as tramadol as soon as possible. documented as of this encounter Plan of Treatment Upcoming Encounters Date Type Specialty Care Team Description 09/08/2022 Procedure visit Aesthetic Medicine and Juanita Vaz, Surgery NEGATIVE DEVELOPER, C.N.P. [address] [place] [phone] (Wo rk) 09/08/2022 Comprehensive Visit Aesthetic Lucero Arita, Surgery M.DAnali, Ph.D. [address] [place] [phone] (Wo rk) documented as of this encounter Procedures Procedure Name Priority Date/Time Associated Comments Diagnosis DX HIP AND PELVIS RAD - Routine 12/05/2020 12:43 Arthroplasty Total Results for this LEFT 4+ VIEWS (most inpatients PM HVAC ENGINEER Hip Replacement procedu re are in and all Status Post Left the results outpatients) section. documented in this encounter Results DX Hip And Pelvis Left 4+ Views (12/05/2020 12:43 PM HVAC ENGINEER) Anatomical Region Laterality Modality Lower Extremity, Pelvis, Hip, Musculoskeletal RST LOS, Left Digital Radiography Musculoskeletal ARZ LOS, Muskuloskeletal FLA LOS Specimen (Source) Anatomical Collection Method Collection Time Re ceived Time Location / / Volume Laterality 12/05/2020 12:45 PM HVAC ENGINEER Impressions 12/05/2020 12:46 PM HVAC ENGINEER Left KORI. No radiographic evidence of loosening. Right KORI. Spinal stimulator over the left side of the sac rum. Degenerative arthritis lower lumbar spine, SI joints, and pubic symphysis. C alcified uterine fibroids. Narrative 12/05/2020 12:46 PM HVAC ENGINEER EXAM: ??DX HIP AND PELVIS LEFT 4+ VIEWS Procedure Note Eliane Amaro M.D. - 12/05/2020For matting of this note might be different from the original. EXAM: DX HIP AND PELVIS LEFT 4+ VIEWS IMPRESSION: Left KORI. No radiographic evidence of lo osening. Right KORI. Spinal stimulator over the left side of the sac rum. Degenerative arthritis lower lumbar spine, SI joints, and pubic symphysis. C alcified uterine fibroids. Sho Song APRN C.N.P. IMG DIAGNOSTIC IMAGING PRO CEDURES documented in this encounter Visit Diagnoses Diagnosis Arthroplasty Total Hip Replacement Statu s Post Left documented in this encounter Care Teams Table Maker Relationship Specialty Start Date End Date Elsewhere, Pcp PCP - General Internal Medicine 07/03/17 documented as of this encounter
--- OUTSIDE RECORDS SUMMARY | 2022-07-30 19:53 | XMS_ITS | Encounter Summary ---
:1945 Author Organization [facility] Address [address] [place] [address] Care Team Providers Name Role Phone Elsewhere, Pcp Primary Care Provider Unavailable Reason for Referral Outpatient (Routine) - Closed Specialty Diagnoses / Procedures Referred By Contact Refer red To Contact Diagnoses Varicose Vein Lower Extremity With Pain Bilateral Juanita Vaz APRN, [facility] Procedures Sclerotherapy SC INJ SCLEROSING SOLN MULT VEIN C.N.P. [address] [place] [phone] Referral ID Status Reason Start Date Expiration Date Visits Requ ested Visits Authorized [id number] Closed 07/22/2021 07/22/2022 2 2 Encounter Details Date Type Department Care Team Description 07/22/2021 Orders Only Department of Vascular Juanita Vaz, Varicose Vein Lower Medicine in [facility] CLAUDIA, C.N .P. Extremity With Pain [place] [address] [facility] Bilateral (Primary Dx) [address] [place] [phone] Social History Tobacco Use Types Packs/Day Years [...] or relatives? How often do you attend gnosticist or More than 4 times per year 01/28/2021 taoism services? Do you belong to any clubs or Yes 01/28/2021 organizations such as gnosticist groups, unions, fraternal or athletic groups, or [...] have completed or the highest Armando, MEd, MACHINE SHOP HELPER, ALL) degree you have received? Sex Assigned at Date Recorded Female 07/26/2020 9:06 PM CDT documented as of this encounter Plan of Treatment Upcoming Encounters Date Type Specialty Care Team Description 09/08/2022 Procedure visit Aesthetic Medicine and Juanita Vaz, Surgery BOTTOM TURNER, C.N.P. [address] [place] [phone] (Charlotte bentley) 09/08/2022 Comprehensive Visit Aesthetic Medicine Lucero Mckeon, Surgery M.DAnali, Ph.D. [address] [place] [phone] (Charlotte bentley) Scheduled Orders Name Type Priority Associated Diagnoses Order S chedule Sclerotherapy Procedures Routine Varicose Vein Lower 2 Occur rences starting Extremity With Pain 07/22/20 21 until Bilateral 07/22/2024 documented as of this encounter Visit Diagnoses Diagnosis Varicose Vein Lower Extremity With Pain Bilateral - Primary documented in this encounter Care Teams Armoring Machine Operator Relationship Specialty Start Date End Date Elsewhere, Pcp PCP - General Internal Medicine 07/03/17 documented as of this encounter
--- OUTSIDE RECORDS SUMMARY | 2022-07-30 19:53 | XMS_ITS | Encounter Summary ---
:1945 Author Organization [facility] Address [address] [place] [address] Care Team Providers Name Role Phone Elsewhere, Pcp Primary Care Provider Unavailable Encounter Details Date Type Department Care Team Description 01/09/2021 Ancillary Procedure Department of Vascular Social History [...] More than 4 times per year 01/28/2021 gnosticism services? Do you belong to any clubs [...] have completed or the highest Armando, MEd, DATACAP DEVELOPER, ALL) degree you have received? Sex Assigned at Date Recorded Female 07/26/2020 9:06 PM CDT documented as of this encounter Plan of Treatment Upcoming Encounters Date Type Specialty Care Team Description 09/08/2022 Procedure visit Aesthetic Medicine and Juanita Vaz, Surgery PETROLEUM REFINING FIRER, C.N.P. [address] [place] [phone] (Wo rk) 09/08/2022 Comprehensive Visit Aesthetic Medicine and Lucero Pritchard, Surgery M.DAnali, Ph.D. [address] [place] [phone] (Wo rk) documented as of this encounter Procedures Procedure Name Priority Date/Time Associated Diagnosis Comme nts VASCULAR IMAGE EXAM Routine 01/09/2021 3:30 PM Re sults for this CDT procedure are i n the results section. documented in this encounter Results Legs-Vascular Image Exam (01/09/2021 3:30 PM CDT) Specimen (Source) Anatomical Collection Method Collection Time Re ceived Time Location / / Volume Laterality 01/09/2021 3:27 PM CDT Narrative [facility] - 01/09/2021 3:30 PM CDT This order has been created [...] filedocumented in this encounter Care Teams Technical Administrator Relationship Specialty Start Date End Date Elsewhere, Pcp PCP - General Internal Medicine 07/03/17 documented as of this encounter
--- OUTSIDE RECORDS SUMMARY | 2022-07-30 19:53 | XMS_ITS | Encounter Summary ---
:1945 Author Organization [facility] Address [address] [place] [address] Care Team Providers Name Role Phone Elsewhere, Pcp Primary Care Provider Unavailable Encounter Details Date Type Department Care Team Description 09/16/2021 Ancillary Procedure Department of Vascular Social History [...] More than 4 times per year 01/28/2021 yazidi services? Do you belong to any clubs [...] have completed or the highest Armando, MEd, MULTIPLE DRILL OPERATOR, ALL) degree you have received? Sex Assigned at Date Recorded Female 07/26/2020 9:06 PM CDT documented as of this encounter Plan of Treatment Upcoming Encounters Date Type Specialty Care Team Description 09/08/2022 Procedure visit Aesthetic Medicine and Juanita Vaz, Surgery ROOFING PLANT SUPERVISOR, C.N.P. [address] [place] [phone] (Wo rk) 09/08/2022 Comprehensive Visit Aesthetic Medicine and Lucero Pritchard, Surgery M.DAnali, Ph.D. [address] [place] [phone] (Wo rk) documented as of this encounter Procedures Procedure Name Priority Date/Time Associated Diagnosis Comme nts VASCULAR IMAGE EXAM Routine 09/16/2021 12:00 AM R esults for this FOREST PRODUCTS TEACHER procedure are i n the results section. documented in this encounter Results Legs Sclerotherapy-Vascular Image Exam (09/16/2021 12:00 AM FOREST PRODUCTS TEACHER) Specimen (Source) Anatomical Location Collection Method / Collectio n Time Received Time / Laterality Volume Narrative [facility] - 09/16/2021 10:48 AM FOREST PRODUCTS TEACHER This order has been created and auto-finalized [...] on filedocumented in this encounter Care Teams Toy Department Manager Relationship Specialty Start Date End Date Elsewhere, Pcp PCP - General Internal Medicine 07/03/17 documented as of this encounter
--- OUTSIDE RECORDS SUMMARY | 2022-07-30 19:53 | XMS_ITS | Encounter Summary ---
:1945 Author Organization [facility] Address [address] [place] [address] Care Team Providers Name Role Phone Elsewhere, Pcp Primary Care Provider Unavailable Encounter Details Date Type Department Care Team Description 09/16/2021 Diagnostic Department of [place], Loss Hearing Otorhinolaryngology in [place], [place] Efrain HarrisCAnaliCAnali-A Bilateral (Primary [address] [facility] [address] [place] [phone] [facility] [phone] [place] [address] Social History Tobacco Use Types [...] or relatives? How often do you attend methodist or More than 4 times per year 01/28/2021 caodaism services? Do you belong to any clubs or Yes 01/28/2021 organizations such as methodist groups, unions, fraternal or athletic groups, or [...] place to sleep or slept in a detention (including now)? Education Answer Date Recorded What is the highest level of school Master's degree (e.g., M Gage, MS, 03/30/2019 you have completed or the highest Armando, MEd, TOY STUFFER, ALL) degree you have received? Sex Assigned at Date Recorded Female 07/26/2020 9:06 PM CDT documented as of this encounter Progress Notes Екатерина Echeverria Au.D., C.C.CAnali-Gage - 09/16/2021 9:00 AM CST SUBJECTIVE REFERRAL: Sharmaine Echeverria. CHIEF COMPLAINT/REASON FOR VISIT Hearing aid follow-up HISTORY Yamileth Sheikh is a 76 y.o. female with an asymmetrical sensorineural hearing loss, left ear poorer than right. She reports bilateral tinnitus. She has had an MRI which does not demonstrate retrocochlear pathology, and has been referred for hearing aids by??Dr. Timmy Wynn. ?? She reports??bilateral tinnitus, and difficulty hearing male speakers. She has previously been fit with tinnitus sound generator options to manage her tinnitus, and notes regular use of this functionality. She reports no specific concerns today and is seen for hearing aid check. ?? Patient was fit with amplification on??04/27/2019.??Since initial fitting, both earmolds have been remade. Hearing Aid Information Left Right Psychological Anthropologist ReSound ReSound Model Linx 3D 577 Linx 3D 577 Style BTE (gqvsts-dfz-cox) BTE (qpeltq-wio-tos) Serial Number [id number] Battery Size 13 13 ? Coupling Custom earmold, SPRAY OPERATOR#5 Custom earmold, SPRAY OPERATOR#5 ? Warranty Date 05/12/2022 05/12/2022 Trial Period End Date 06/12/2019 ?? She was last seen for hearing aid check in December 2020. OBJECTIVE Otoscopic evaluation was performed and indicated clear ear canals bilaterally. ASSESSMENT/PLAN Following hearing aid cleaning, listening check indicates good clarity. The following components were replaced during cleaning: earmold tubing. Aided real-ear probe microphone measures showed excellent audiblity when compared to NAL-NL2 targetsfor conversational speech inputs (65 dB SPL). Performance is stable when compared with previous testing. No programming changes were made today as the patient reports satisfaction with her current hearing aid response. Follow-up in 6-12 months for routine hearing aid check is recommended. Discuss updated hearing evaluation with primary care provider for referral. #1 Loss Hearing Sensorineural Bilateral MGR documented in this encounter Plan of Treatment Upcoming Encounters Date Type Specialty Care Team Description 09/08/2022 Procedure visit Aesthetic Medicine and Juanita Vaz, Surgery MAGNETIC LOCATER, C.N.P. [address] [place] [phone] (Charlotte bentley) 09/08/2022 Comprehensive Visit Aesthetic Medicine Lucero Mckeon, Surgery M.DAnali, Ph.D. [address] [place] [phone] (Charlotte bentley) documented as of this encounter Visit Diagnoses Diagnosis Loss Hearing Sensorineural Bilateral - P rimary documented in this encounter Care Teams Postdoctoral Research Associate Relationship Specialty Start Date End Date Elsewhere, Pcp PCP - General Internal Medicine 07/03/17 documented as of this encounter
--- OUTSIDE RECORDS SUMMARY | 2022-07-30 19:53 | XMS_ITS | Encounter Summary ---
:1945 Author Organization [facility] Address [address] [place] [address] Care Team Providers Name Role Phone Elsewhere, Pcp Primary Care Provider Unavailable Reason for Referral Outpatient (Routine) - Authorized Specialty Diagnoses / Procedures Referred By Contact Refer red To Contact Diagnoses Varicose Vein Lower Extremity With Pain Bilateral Juanita Vaz APRN, [facility] Procedures Sclerotherapy [place] INJ SCLEROSING SOLN MULT VEIN C.N.P. [address] [place] [address] Referral ID Status Reason Start Date Expiration Date Visits V isits Requested Authorized [id number] Authorized 09/16/2021 09/16/2022 1 1 STANT TO THE DIRECTOR Reason for Visit Outpatient (Routine) - Closed Specialty Diagnoses / Procedures Referred By Contact Refer red To Contact Diagnoses Varicose Vein Lower Extremity With Pain Bilateral Juanita Vaz APRN, [facility] Procedures Sclerotherapy [place] INJ SCLEROSING SOLN MULT VEIN C.N.P. [address] [place] [address] Referral ID Status Reason Start Date Expiration Date Visits Requ ested Visits Authorized [id number] Closed 07/22/2021 07/22/2022 2 2 Encounter Details Date Type Department Care Team Description 09/16/2021 Procedure visit [facility] Juanita Vaz Ca ricose Vein Lower Medicine and Surgery CLAUDIA Malone CAnali NAnaliP. Extremity With Pain in [place], [address] [facility] Bilateral (Primary [place], [place] Dx) [address] [facility] [address] [place], [place] [phone] (Work) [phone] Social History Tobacco Use Types Packs/Day Years [...] or relatives? How often do you attend yazidi or More than 4 times per year 01/28/2021 druze services? Do you belong to any clubs or Yes 01/28/2021 organizations such as yazidi groups, unions, fraternal or athletic groups, or [...] place to sleep or slept in a penitentiary (including now)? Education Answer Date Recorded What is the highest level of school Master's degree (e.g., M A, MS, 03/30/2019 you have completed or the highest Armando, MEd, ASSOCIATE DOCTOR, ALL) degree you have received? Sex Assigned at Date Recorded Female 07/26/2020 9:06 PM CDT documented as of this encounter Procedure Notes Juanita Vaz APRN, C.N.P. - 09/16/2021 10:15 AM CSTAssociated Order(s): Sclerotherapy Post-Procedure Diagnose(s): Varicose Vein Lower Extremity With Pain Bilateral Sclerotherapy Date/Time: 09/16/2021 5:31 PM Performed by: Juanita Vaz APRN, C.N.P. Authorized by: Juanita Vaz APRN, C.N.P. Care team members present 1. Juanita Vaz APRN, C.N.P. PROCEDURE DETAILS Needle gauge: 30g VeinLite used: yes All [...] ANESTHESIA Anesthesia method: none LOCATION Treated vein: Varicose vein. Aspect: posterior Site: calf Laterality: bilateral POST-PROCEDURE DETAILS Number of veins treated: 2 or more Pressure compression garments applied post-operatively: yes Procedure completed successfully: yes Complications: no apparent complications STANT TO THE DIRECTOR documented in this encounter Plan of Treatment Upcoming Encounters Date Type Specialty Care Team Description 09/08/2022 Procedure visit Aesthetic Medicine and Juanita Vaz, Surgery CLAUDIA, C.N.P. [address] [place] [phone] (Charlotte bentley) 09/08/2022 Comprehensive Visit Aesthetic Medicine and Lucero Pritchard Surgery MJayda, Ph.D. [address] [place] [phone] (Charlotte bentley) documented as of this encounter Procedures Procedure Name Priority Date/Time Associated Diagnosis Comme nts SCLEROTHERAPY Routine 09/16/2021 5:31 PM Varicose Vein Lower R esults for this ASSISTANT TO THE DIRECTOR Extremity With Pain procedur e are in the Bilateral results section . documented in this encounter Results Sclerotherapy (09/16/2021 5:31 PM ASSISTANT TO THE DIRECTOR) Narrative MMODAL - 09/16/2021 5:31 PM ASSISTANT TO THE DIRECTOR Juanita Vaz APRN, C.NTabby. ? 09/16/2021 ??5:33 PM Sclerotherapy Date/Time: 09/16/2021 5:31 PM Performed by: Juanita Vaz APRN, C. NJuana Authorized by: Juanita Vaz APRN, C .NJuana Care team members present 1. Juanita Vaz APRN, C.NTabby. PROCEDURE DETAILS Needle gauge: 30g VeinLite used: yes ?? [...] ANESTHESIA Anesthesia method: none LOCATION Treated vein: Varicose vein. Aspect: posterior Site: calf Laterality: bilateral POST-PROCEDURE DETAILS Number of veins treated: 2 or more Pressure compression garments applied po st-operatively: yes ?? Procedure completed successfully: yes ?? Complications: no apparent complications Efrain Brooks APRNNAnaliPAnali PROCEDURE/MINOR SURGICAL ORDERABLES Performing Organization Address City/State/ZIP Code Phon e Number MMODAL MMODAL NA documented in this encounter Visit Diagnoses Diagnosis Varicose Vein Lower Extremity With Pain Bilateral - Primary documented in this encounter Care Teams Embedder Relationship Specialty Start Date End Date Elsewhere, Pcp PCP - General Internal Medicine 07/03/17 documented as of this encounter
--- OUTSIDE RECORDS SUMMARY | 2022-07-30 19:53 | XMS_ITS | Encounter Summary ---
:1945 Author Organization [facility] Address [address] [place] [address] Care Team Providers Name Role Phone Elsewhere, Pcp Primary Care Provider Unavailable Reason for Visit Reason Comments Follow-up Encounter Details Date Type Department Care Team Description 09/02/2021 Clinical Communication Division of Merrill Harris F ollow-merna Endocrinology in [place], [place] [address] [facility] [address] [place] [phone] Social History Tobacco Use Types Packs/Day Years [...] or relatives? How often do you attend scientology or More than 4 times per year 01/28/2021 gnosticism services? Do you belong to any clubs or Yes 01/28/2021 organizations such as scientology groups, unions, fraternal or athletic groups, or [...] have completed or the highest Armando, MEd, WELDER GAS, ALL) degree you have received? Sex Assigned at Date Recorded Female 07/26/2020 9:06 PM CDT documented as of this encounter Miscellaneous Notes Telephone Encounter - Lea Massey - 09/09/2021 1:51 PM CST Sent POM back to patient. STMENT ANALYST Telephone Encounter - Merrill Harris M.D. - 09/02/2021 10:37 AM CST The patient should return for a follow-up appointment in 1 year. I ordered her studies. STMENT ANALYST Telephone Encounter - Lea Massey - 09/02/2021 10:06 AM CST S: Caller/Dept - Patient Phone # - Portal MD - Dr. Harris B: Patient was last seen on : 07/02/20 Patient is scheduled for: n/a A: Patient was seen for osteoporosis. Patient sent portal message asking if she is needing follow upappointment. She stated she has been seen due to the pandemic. She didn't list any new concerns. Please advise and if sending orders. Thank you Lea! R: PASS- contact patient back via portal. [facility] Appointment Office [phone] *reply back to P RST END SCHEDULING* STMENT ANALYST documented in this encounter Plan of Treatment Upcoming Encounters Date Type Specialty Care Team Description 09/08/2022 Procedure visit Aesthetic Medicine and Juanita Vaz, Surgery PATTERN CHANGER, C.N.P. [address] [place] [address] (Wo rk) 09/08/2022 Comprehensive Visit Aesthetic Medicine and Lucero Pritchard, Surgery Francesca, Ph.D. [address] [place] [address] (Wo rk) documented as of this encounter Visit Diagnoses Not on filedocumented in this encounter Care Teams Heating And Ventilating Worker Relationship Specialty Start Date End Date Elsewhere, Pcp PCP - General Internal Medicine 07/03/17 documented as of this encounter
--- OUTSIDE RECORDS SUMMARY | 2022-07-30 19:54 | XMS_ITS | Encounter Summary ---
:1945 Author Organization [facility] Address [address] [place] [address] Care Team Providers Name Role Phone Elsewhere, Pcp Primary Care Provider Unavailable Encounter Details Date Type Department Care Team Description 07/31/2020 Clinical Communication Preoperative Cece Sanchez Evaluation Center in [place], [place] [address] [facility] [address] [place] [phone] Social History Tobacco Use Types Packs/Day Years Used Date Smoking Tobacco: Never Smokeless Tobacco: Never Alcohol Use Standard Drinks/Week Comments Yes 7 (1 standard drink = 0.6 oz pure alcoho l) Alcohol Habits Answer Date Recorded How often [...] or relatives? How often do you attend restorationist or More than 4 times per year 01/28/2021 mandaeism services? Do you belong to any clubs or Yes 01/28/2021 organizations such as restorationist groups, unions, fraternal or athletic groups, or [...] have completed or the highest Armando, MEd, EMBEDDED SYSTEMS SOFTWARE ENGINEER, ALL) degree you have received? Sex Assigned at Date Recorded Female 07/26/2020 9:06 PM CDT documented as of this encounter Miscellaneous Notes Telephone Encounter - Cece Sanchez R.R.T. - 07/31/2020 9:50 AM CDT Preoperative evaluation and assessment Scheduled for ARTHROPLASTY TOTAL HIP - DIRECT ANTERIOR on 09/11/2020 to be performed by Dr. Ángel Apodaca. Do you have heart problems :yes, HTN Do you have any difficulties or need assistance activities of daily living: no Do you have any bleeding problems or are you taking any blood thinners no Do you have diabetes no Do you have breathing problems no Have you had a stroke, TIA, or seizures no Do you have kidney or liver problems no Is your BMI >40? no Do you take more than five prescriptions medications yes Do you have chronic pain that requires daily prescription pain medications no Age: 74 Patient Risk Factor Score: 2 Surgical Risk Category: 3 Per Preoperative Medical Assessment and Evaluation Types; the patient meets: (X) F2F documented in this encounter Plan of Treatment Upcoming Encounters Date Type Specialty Care Team Description 09/08/2022 Procedure visit Aesthetic Medicine and Juanita Vaz, Surgery WELDING MACHINE FEEDER, C.N.P. [address] [place] [phone] (Charlotte bentley) 09/08/2022 Comprehensive Visit Aesthetic Medicine Lucero Mckeon, Surgery MJayda, Ph.D. [address] [place] [phone] (Charlotte bentley) documented as of this encounter Visit Diagnoses Not on filedocumented in this encounter Care Teams Farm Service Adviser Relationship Specialty Start Date End Date Elsewhere, Pcp PCP - General Internal Medicine 07/03/17 documented as of this encounter
--- OUTSIDE RECORDS SUMMARY | 2022-07-30 19:54 | XMS_ITS | Encounter Summary ---
:1945 Author Organization [facility] Address [address] [place] [address] Care Team Providers Name Role Phone Elsewhere, Pcp Primary Care Provider Unavailable Reason for Visit Reason Comments COVID Inquiry Encounter Details Date Type Department Care Team Description 08/23/2020 Clinical Communication Department of Juanita Vaz Inquiry Vascular Medicine in R, OUTSIDE LABORER, C. N.P. [place], [place] [address] [facility] [address] [place] [phone] Social History Tobacco Use Types Packs/Day Years [...] or relatives? How often do you attend faith or More than 4 times per year 01/28/2021 congregation services? Do you belong to any clubs or Yes 01/28/2021 organizations such as faith groups, unions, fraternal or athletic groups, or [...] have completed or the highest Armando, MEd, REHABILITATION THERAPY TECHNICIAN, ALL) degree you have received? Sex Assigned at Date Recorded Female 07/26/2020 9:06 PM CDT documented as of this encounter Miscellaneous Notes Telephone Encounter - Kemi Chaparro - 08/23/2020 10:22 AM CST COVID DOS/PASS Screening What is the patient requesting?: Additional Appointments (Continue with screening) Have you tested positive for COVID-19 in the last 30 days (20 days for ARZ) or do you have a pendingCOVID-19 test because you had symptoms?: No (Continue with screening) Have you had close contact* with a person who has a LABORATORY CONFIRMED case of COVID-19 in the past 14 days?: No (Continue with screening) When is the patient asking to be scheduled F2F?: Greater than 30 days in [facility], [facility], [facility] (End screening - run decision tree and schedule as appropriate) Plan: Endpoint recommendation: Followed regional OTG *Reminder if sending patient for testing in [facility] or [facility], an email notification is required. VE SETTER SAFETY STITCH documented in this encounter Plan of Treatment Upcoming Encounters Date Type Specialty Care Team Description 09/08/2022 Procedure visit Aesthetic Medicine and Juanita Vaz, Surgery OUTSIDE LABORER, C.N.P. [address] [place] [phone] (Charlotte bentley) 09/08/2022 Comprehensive Visit Aesthetic Medicine Lucero Mckeon, Surgery M.D., Ph.D. [address] [place] [phone] (Charlotte bentley) documented as of this encounter Visit Diagnoses Not on filedocumented in this encounter Care Teams Pesticide Use Medical Coordinator Relationship Specialty Start Date End Date Elsewhere, Pcp PCP - General Internal Medicine 07/03/17 documented as of this encounter
--- OUTSIDE RECORDS SUMMARY | 2022-07-30 19:54 | XMS_ITS | Encounter Summary ---
:1945 Author Organization [facility] Address [address] [place] [address] Care Team Providers Name Role Phone Elsewhere, Pcp Primary Care Provider Unavailable Encounter Details Date Type Department Care Team Description 07/31/2020 Ancillary Procedure Department of Orthopedic Surgery Social History Tobacco Use Types Packs/Day Years [...] or relatives? How often do you attend hindu or More than 4 times per year 01/28/2021 uatsdin services? Do you belong to any clubs or Yes 01/28/2021 organizations such as hindu groups, unions, fraternal or athletic groups, or [...] have completed or the highest Armando, MEd, SHOP ASSISTANT, ALL) degree you have received? Sex Assigned at Date Recorded Female 07/26/2020 9:06 PM CDT documented as of this encounter Plan of Treatment Upcoming Encounters Date Type Specialty Care Team Description 09/08/2022 Procedure visit Aesthetic Medicine and Juanita Vaz, Surgery BEHAVIORAL HEALTH RN, C.N.P. [address] [place] [phone] (Charlotte rk) 09/08/2022 Comprehensive Visit Aesthetic Medicine Lucero Mckeon, Surgery M.D., Ph.D. [address] [place] [phone] (Charlotte rk) documented as of this encounter Procedures Procedure Name Priority Date/Time Associated Comments Diagnosis ORTHOPEDIC SURGERY Routine 07/31/2020 7:15 AM Res ults for this IMAGE EXAM CDT procedure are i n the results section. documented in this encounter Results DX HIP AND PELVIS LEFT 2-3 VIEWS-Orthopedic Surgery Image Exam (07/31/2020 7:15 AM CDT) Specimen (Source) Anatomical Location Collection Method / Collectio n Time Received Time / Laterality Volume Narrative IIMS - 09/08/2020 7:03 AM FLUME WORKER This order has been created and auto-finalized [...] on filedocumented in this encounter Care Teams Brand Lead Relationship Specialty Start Date End Date Elsewhere, Pcp PCP - General Internal Medicine 07/03/17 documented as of this encounter
--- OUTSIDE RECORDS SUMMARY | 2022-07-30 19:54 | XMS_ITS | Encounter Summary ---
:1945 Author Organization [facility] Address [address] [place] [address] Care Team Providers Name Role Phone Elsewhere, Pcp Primary Care Provider Unavailable Reason for Referral Outpatient (Routine) - Closed Specialty Diagnoses / Procedures Referred By Contact Refer red To Contact Diagnoses Screening Mammogram Breast Cancer Merrill Harris M.D. [facility] Procedures BI Breast Screening Bilateral with Tomosynthesis [address] [place], [place] [phone] Referral ID Status Reason Start Date Expiration Date Visits Requ ested Visits Authorized [id number] Closed 05/24/2020 05/24/2021 1 1 COVERER Reason for Visit Outpatient (Routine) - Closed Specialty Diagnoses / Procedures Referred By Contact Refer red To Contact Diagnoses Screening Mammogram Breast Cancer Merrill Harris M.D. [facility] Procedures BI Breast Screening Bilateral with Tomosynthesis [address] [place] [address] Referral ID Status Reason Start Date Expiration Date Visits Requ ested Visits Authorized [id number] Closed 05/24/2020 05/24/2021 1 1 Encounter Details Date Type Department Care Team Description 09/10/2020 Hospital Encounter Department of Merrill Harris Mammogram Radiology javier Perera M.D. Breast [place], [place] [address] [facility] [address] [place] [phone] [phone] Social History Tobacco Use Types Packs/Day Years [...] or relatives? How often do you attend islam or More than 4 times per year 01/28/2021 synagogue services? Do you belong to any clubs or Yes 01/28/2021 organizations such as islam groups, unions, fraternal or athletic groups, or [...] have completed or the highest Armando, MEd, VICE PRESIDENT FOR INSTRUCTION, ALL) degree you have received? Sex Assigned at Date Recorded Female 07/26/2020 9:06 PM CDT documented as of this encounter Medications at Time of Discharge Medication Sig Dispensed Refills Start Date End Date acetaminophen Take 2 tablets (1,000 160 tablet 0 09/10/2020 (TYLENOL) 500 mg mg total) by mouth tablet every 6 (six) hours for 80 doses. Continue to take while requiring narcotic pain medication. Do not take more than 4000 mg in one day. amoxicillin (AMOXIL) as needed. Prior to 0 [...] by mouth 0 (VALTREX ORAL) as needed. acetaminophen-codeine Take 1 tablet by mouth 0 09/11/2020 (TYLENOL #2) 300-15 mg 3 (three) times a day. per tablet alendronate (FOSAMAX) Take 1 tablet (70 mg [...] visit Aesthetic Medicine and Juanita Vaz, Surgery FINGERER, C.N.P. [address] [place] [phone] (Charlotte bentley) 09/08/2022 Comprehensive Visit Aesthetic Medicine Lucero Mckeon Surgery MJayda, Ph.D. [address] [place] [phone] (Charlotte bentley) documented as of this encounter Procedures Procedure Name Priority Date/Time Associated Comments Diagnosis BI BREAST SCREENING RAD - Routine 09/10/2020 2:34 Screening Resu lts for BILATERAL WITH (most inpatients PM BALE COVERER Mammogram Breast this procedure TOMOSYNTHESIS and all Cancer are in the outpatients) results section. documented in this encounter Results BI Breast Screening Bilateral with Tomosynthesis (09/10/2020 2:34 PM BALE COVERER) Anatomical Region Laterality Modality Breast, Breast Imaging [facility]ST LOS, Breast Imaging ARZ LOS, [address] st Bilateral Mammography Imaging FLA LOS Specimen (Source) Anatomical Collection Method Collection Time Re ceived Time Location / / Volume Laterality 09/10/2020 3:31 PM BALE COVERER Impressions 09/10/2020 3:33 PM BALE COVERER Benign. RECOMMENDATION: ??Annual Screening Mammo gram ASSESSMENT: ??BI-RADS: 2: Benign. Narrative 09/10/2020 3:33 PM BALE COVERER EXAM: ??BI BREAST SCREENING BILATERAL WITH TOMOSYNTHESIS Current study was evaluated with a Compu ter Aided Detection (CAD) system. INDICATION: ??Screening mammogram. COMPARISON: ??Prior exam(s) were availab le and reviewed for comparison. DENSITY: ??b. There are scattered areas of fibroglandular density. FINDINGS: ??No findings of malignancy. ? ?No significant change since prior exam.Postoperative changes from reductio n mammoplasty. Procedure Note Nanette Shah M.D. - 09/10/2020Formatti ng of this note might be different from the original. EXAM: BI BREAST SCREENING BILATERAL WITH TOMOSYNTHESIS Current study was evaluated with a Recoversu ter Aided Detection (CAD) system. INDICATION: Screening mammogram. COMPARISON: Prior exam(s) were available and reviewed for comparison. DENSITY: b. There are scattered areas of fibroglandular density. FINDINGS: No findings of malignancy. No significant change since prior exam.Postoperative changes from reductio n mammoplasty. IMPRESSION: Benign. RECOMMENDATION: Annual Screening Mammogr am ASSESSMENT: BI-RADS: 2: Benign. Merrill WARD BI PROCEDURES documented in this encounter Visit Diagnoses Diagnosis Screening Mammogram Breast Cancer documented in this encounter Care Teams Channel Supervisor Relationship Specialty Start Date End Date Elsewhere, Pcp PCP - General Internal Medicine 07/03/17 documented as of this encounter
--- OUTSIDE RECORDS SUMMARY | 2022-07-30 19:54 | XMS_ITS | Encounter Summary ---
:1945 Author Organization [facility] Address [address] [place] [address] Care Team Providers Name Role Phone Elsewhere, Pcp Primary Care Provider Unavailable Encounter Details Date Type Department Care Team Description 07/31/2020 Hospital Encounter Department of Radiology, [facility], Clary y C, Pain Hip Left [facility] in .[place], [place] [address] [facility] [address] [place] [phone] [phone] Social History Tobacco Use Types Packs/Day Years [...] or relatives? How often do you attend sikhism or More than 4 times per year 01/28/2021 shinto services? Do you belong to any clubs or Yes 01/28/2021 organizations such as sikhism groups, unions, fraternal or athletic groups, or [...] have completed or the highest Armando, MEd, LINE MECHANIC, ALL) degree you have received? Sex Assigned at Date Recorded Female 07/26/2020 9:06 PM CDT documented as of this encounter Medications at Time of Discharge Medication Sig Dispensed Refills Start Date End Date cholecalciferol (VITAMIN Take 2,400 mcg by 0 05/05 D3) 50 mcg (2,000 Unit) mouth every morning. capsule 2400mcg co-enzyme Q-10 (COQ-10) Take 100 mg by mouth 0 100 mg capsule every morning. estradiol (ESTRACE) 0.1 Insert 1 application 0 mg/g (0.01%) vaginal into the vagina as cream directed. 3 times a week on the labia estradiol (ESTRING) 2 mg Insert 1 application 0 0 03/16/2014 (7.5 mcg /24 hour) into the vagina as vaginal ring directed. Every 3 months hydrocortisone Insert into the 0 11/21/2018 (ANUSOL-HC) 2.5 % rectal rectum as needed. cream irbesartan (AVAPRO) 150 Take 150 mg by mouth 0 mg tablet daily. L-LYSINE ORAL Take 1 tablet by 0 05/24/2015 mouth every morning. 1000 mg lisinopriL Take 1 tablet by 0 03/20/2010 (PRINIVIL,ZESTRIL) 20 mg mouth daily. tablet rosuvastatin (CRESTOR) 5 Take 5 mg by mouth 0 mg tablet every morning. tretinoin (RETIN-A) 0.05 Apply 1 application 10 % cream topically at bedtime. valacyclovir HCl (VALTREX Take 1 tablet by 0 ORAL) mouth as needed. alendronate (FOSAMAX) 70 Take 1 tablet (70 mg 12 tablet 3 0 07/02/2020 09/01/2021 mg tablet total) by mouth every 7 (seven) days. 1 tablet weekly on an empty stomach, remain upright for at least 30 minutes ciclopirox (LOPROX) 0.77 Apply 1 application 0 08/22/2020 % cream topically 2 (two) times a day. To toenails. omega-3 acid ethyl esters Take 1 capsule by 0 09/10/2020 (LOVAZA) 1 gram capsule mouth as needed. documented as of this encounter Plan of Treatment Upcoming Encounters Date Type Specialty Care Team Description 09/08/2022 Procedure visit Aesthetic Medicine and Juaniat Vaz, Surgery PUBLIC AFFAIRS MANAGER, C.N.P. [address] [place] [address] (Wo rk) 09/08/2022 Comprehensive Visit Aesthetic Medicine and Lucero Pritchard, Surgery MJayda, Ph.D. [address] [place] [address] (Wo rk) documented as of this encounter Procedures Procedure Name Priority Date/Time Associated Comments Diagnosis DX HIP AND PELVIS RAD - Routine 07/31/2020 7:33 Pain Hip Left Resul ts for this LEFT 2-3 VIEWS (most inpatients AM CDT procedure are in and all the results outpatients) section. documented in this encounter Results DX Hip And Pelvis Left 2-3 Views (07/31/2020 7:33 AM CDT) Anatomical Region Laterality Modality Lower Extremity, Pelvis, Hip, Musculoskeletal [facility] LOS, Left Digital Radiography Musculoskeletal ARZ LOS, Muskuloskeletal FLA LOS Specimen (Source) Anatomical Collection Method Collection Time Re ceived Time Location / / Volume Laterality 07/31/2020 7:46 AM CDT Impressions 07/31/2020 7:48 AM CDT Compared to 09/20/19, there has been no change in the appearance of right ALEKS. Advanced degenerative changes left hip with complete loss of joint space. The femoral head is partially obs cured by a nerve stimulator battery pack. The stimulator lead has its tip at S4 on the left. 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 Calci fication in the pelvis is likely uterine. Osteopenia. Narrative 07/31/2020 7:48 AM CDT EXAM: ??DX HIP AND PELVIS LEFT 2-3 VIEWS Procedure Note Nivia Boucher M.D. - 07/31/2020For matting of this note might be different from the original. EXAM: DX HIP AND PELVIS LEFT 2-3 VIEWS IMPRESSION: Compared to 09/20/19, there has been no change in the appearance of right ALEKS. Advanced degenerative changes left hip with complete loss of joint space. The femoral head is partially obs cured by a nerve stimulator battery pack. The stimulator lead has its tip at S4 on the left. 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 Calci fication in the pelvis is likely uterine. Osteopenia. Dyllan Pritchard M.D. [facility] documented in this encounter Visit Diagnoses Diagnosis Pain Hip Left documented in this encounter Care Teams Advanced Nursing Professor Relationship Specialty Start Date End Date Elsewhere, Pcp PCP - General Internal Medicine 07/03/17 documented as of this encounter
--- OUTSIDE RECORDS SUMMARY | 2022-07-30 19:54 | XMS_ITS | Encounter Summary ---
:1945 Author Organization [facility] Address [address] [place] [address] Care Team Providers Name Role Phone Elsewhere, Pcp Primary Care Provider Unavailable Encounter Details Date Type Department Care Team Description 09/10/2020 Education Department of Sho Song, Primary Os teoarthritis Orthopedic Surgery in [facility], C.N. P. Hip Left [place], [place] [address] [facility] [address] [place] [address] [phone] Social History Tobacco Use Types Packs/Day Years [...] or relatives? How often do you attend anabaptism or More than 4 times per year 01/28/2021 anglican services? Do you belong to any clubs or Yes 01/28/2021 organizations such as anabaptism groups, unions, fraternal or athletic groups, or [...] have completed or the highest Armando, MEd, TRUCK TRAILER FINAL INSPECTOR, ALL) degree you have received? Sex Assigned at Date Recorded Female 07/26/2020 9:06 PM CDT documented as of this encounter Progress Notes Chucho Robertson R.N. - 09/10/2020 12:00 PM CST Patient attended a pre-op education class in preparation for left hip surgery on 09/11/[address] Apodaca. Patient plans to dismiss to Home Self Care with the assistance of her family. Patient currently does own a pair of crutches and was instructed to wait to purchase equipment until after surgery.All of the patient's questions were answered. Total Hip Replacement Surgery-Direct Anterior Approach ([id number]) given. Rehabilitation After Total Hip Replacement ([id number]) Preventing Falls discussed. Pain Scale discussed. New NPO guideline provided. Total Joint Replacement Bradley Messages ([id number]) provided. Advance Directives ([id number]) provided. Anesthesia and Pain Management Options for Hip Surgery ([id number]) given. Important Information About Opioid Medications ([id number]) Electronically signed by: Chucho Robertson R.N. 09/10/20 1:22 PM T RAIL TURNER T RAIL TURNER documented in this encounter Plan of Treatment Upcoming Encounters Date Type Specialty Care Team Description 09/08/2022 Procedure visit Aesthetic Medicine and Juanita Vaz, Surgery HYDRO GENERATION SUPERVISOR, C.N.P. [address] [place] [phone] (Charlotte bentley) 09/08/2022 Comprehensive Visit Aesthetic Medicine Lucero Mckeon, Surgery MJayda, Ph.D. [address] [place] [address] (Charlotte bentley) documented as of this encounter Visit Diagnoses Diagnosis Primary Osteoarthritis Hip Left documented in this encounter Care Teams Chief Construction Inspector Relationship Specialty Start Date End Date Elsewhere, Pcp PCP - General Internal Medicine 07/03/17 documented as of this encounter
--- OUTSIDE RECORDS SUMMARY | 2022-07-30 19:54 | XMS_ITS | Encounter Summary ---
:1945 Author Organization [facility] Address [address] [place] [id number] Care Team Providers Name Role Phone Elsewhere, Pcp Primary Care Provider Unavailable Encounter Details Date Type Department Care Team Description 09/09/2020 Lab Department of Laboratory Sho Song, Encounter For Screening Medicine and Pathology, DIRECTOR OF VOCATIONAL TRAINING, C. N.P. For Other Viral Diseases [place], [place] [address] [place] [address] (COVID-19) [place], [place] [address] [place] [phone] [place] [address] [phone] Social History Tobacco Use Types Packs/Day Years [...] or relatives? How often do you attend christian or More than 4 times per year 01/28/2021 methodist services? Do you belong to any clubs or Yes 01/28/2021 organizations such as christian groups, unions, fraternal or athletic groups, or [...] have completed or the highest Armando, MEd, REFRACTORY MIXER, ALL) degree you have received? Sex Assigned at Date Recorded Female 07/26/2020 9:06 PM CDT documented as of this encounter Plan of Treatment Upcoming Encounters Date Type Specialty Care Team Description 09/08/2022 Procedure visit Aesthetic Medicine and Juanita Vaz, Surgery DIRECTOR OF VOCATIONAL TRAINING, C.N.P. [address] [place] [phone] (Wo rk) 09/08/2022 Comprehensive Visit Aesthetic Medicine and Lucero Pritchard, Surgery M.D., Ph.D. [address] [place] [phone] (Wo rk) documented as of this encounter Procedures Procedure Name Priority Date/Time Associated Diagnosis Comme nts SARS CORONAVIRUS-2 Routine 09/09/2020 10:34 AM Encounter For R esults for this RNA, V JEWEL LATHE OPERATOR Screening For Other procedur e are in Viral Diseases the results (COVID-19) section. documented in this encounter Results SARS Coronavirus-2 RNA, V Asymptomatic (09/09/2020 10:34 AM JEWEL LATHE OPERATOR) [facility] Method Time Signature SARS-CoV-2 Swab, 09/09/2020 DTL Specimen Nasopharynx 4:30 PM JEWEL LATHE OPERATOR Source SARS CoV-2 Undetected Undetected 09/09/2020 DTL RNA, TMA 4:30 PM JEWEL LATHE OPERATOR Comment: SARS-CoV-2 RNA absent. This result does not rule out COVID-19 in the patient, as the sensitivity of the test depends o n the timing of the specimen collection and the quality of the specim en. Result should be correlated with patient's history and clinical presentat ion. ----ADDITIONAL INFORMATION---- This test is performed using the Aptima SARS-CoV-2 assay ([employer] which has received Emergency Use Authori zation (EUA) by the U.S. Food and Drug Administration. Fact sheets for this Emergency Use Autho rization (EUA) assay can be found at the following links: For Healthcare Providers: https://www.fd a.gov/media/376018/download For Patients: https://www.fda.gov/media/ 036725/download Specimen Anatomical Collection Method Collection Time Receive d Time (Source) Location / / Volume Laterality Varies 09/09/2020 10:34 09/09/2020 (Nasopharynx) AM JEWEL LATHE OPERATOR 11:36 AM JEWEL LATHE OPERATOR Sho Song APRN C.NAnaliPAnali LAB MICROBIOLOGY - GENERAL ORDERABLES Performing Organization Address City/State/[facility] Code Phon e Number [facility] - [address] [place], [place] [address] [facility] [place] [address] [facility], [place] [address] documented in this encounter Visit Diagnoses Diagnosis Encounter For Screening For Other Viral Diseases (COVID-19) documented in this encounter Additional Health Concerns Infection Onset Date Last Indicated Resolved Time COVID19 Pending 09/09/2020 09/09/2020 09/09/2020 4:30 PM JEWEL LATHE OPERATOR documented as of this encounter Care Teams Escrow Closer Relationship Specialty Start Date End Date Elsewhere, Pcp PCP - General Internal Medicine 07/03/17 documented as of this encounter
--- OUTSIDE RECORDS SUMMARY | 2022-07-30 19:54 | XMS_ITS | Encounter Summary ---
:1945 Author Organization [facility] Address [address] [place] [id number] Care Team Providers Name Role Phone Elsewhere, Pcp Primary Care Provider Unavailable Reason for Referral Outpatient (Routine) - Closed Specialty Diagnoses / Procedures Referred By Contact Refer red To Contact Diagnoses Varicose Vein Lower Extremity With Pain Bilateral [facility] Procedures Sclerotherapy C.N.P. [address] [place], [place] [phone] Referral ID Status Reason Start Date Expiration Date Visits Requ ested Visits Authorized [id number] Closed 08/01/2020 08/01/2021 5 5 Reason for Visit Outpatient (Routine) - Closed Specialty Diagnoses / Procedures Referred By Contact Refer red To Contact Vascular Medicine Juanita Vaz APRN [facility] C.N.P. [address] [place] [address] Referral ID Status Reason Start Date Expiration Date Visits Requ ested Visits Authorized [id number] Closed 06/24/2020 06/24/2021 1 1 Encounter Details Date Type Department Care Team Description 08/01/2020 Office Visit Department of Juanita Vaz, Varicose Vein Lower Extremity With Pain Bilateral (Primary Dx); Vascular Medicine in CLAUDIA, C.N.P . Insufficiency Venous Peripheral [place], [place] 200 [facility] [address] [place] [phone] Social History Tobacco Use Types Packs/Day Years [...] or relatives? How often do you attend pentecostalism or More than 4 times per year 01/28/2021 moravian services? Do you belong to any clubs or Yes 01/28/2021 organizations such as pentecostalism groups, unions, fraternal or athletic groups, or [...] have completed or the highest Armando, MEd, 911 OPERATOR, ALL) degree you have received? Sex Assigned at Date Recorded Female 07/26/2020 9:06 PM CDT documented as of this encounter Last Filed Vital Signs Vital Sign Reading Time Taken Comments Blood Pressure 126/72 08/01/2020 3:57 PM CDT Pulse 69 08/01/2020 3:57 PM CDT Temperature - - Respiratory Rate - - Oxygen Saturation - - Inhaled Oxygen Concentration - - Weight 68.3 kg (150 lb 9.2 oz) 08/01/2020 3:57 PM CDT Height 168.9 cm (5' 6.5) 08/01/2020 3:57 PM CDT Body Mass Index 23.94 08/01/2020 3:57 PM CDT documented in this encounter Progress Notes Juanita Vaz, FILLER BLOCK INSERTER REMOVER, C.N.P. - 08/01/2020 4:00 PM CDT SUBJECTIVE CHIEF COMPLAINT / REASON FOR VISIT Returns for surveillance of her known venous disease. HISTORY OF PRESENT ILLNESS Yamileth Sheikh is a 74 y.o. female for evaluation of varicose veins with pain bilaterally. She met with Dr. Michele Mello on December 01 of this year for initial evaluation in the setting of superficial incompetence. He felt that her risk for tissue damage with laser therapy would be too high and therefore, recommended a 3 month trial of stockings followed by a visit with me to discuss sclerotherapy. She has a previous history of GSV stripping in the left lower extremity performed back in 1991. She has done well until the past few years when she has developed increasing difficulties with increased edema and pain. She describes moderate pain associated with the varicosities of her right lower extremity and a milder pain in her left lower extremity. Despite ongoing use of compression stockings, shecontinues with pain and edema. She denies any difficulties with bleeding from her varicosities. Denies any previous history of DVT or superficial thrombophlebitis. She notes a strong family history of varicose veins in her mother and father. She has a history of controlled hypertension, hemorrhoids, and hyperlipidemia. She has undergone approximately 3-4 sessions of sclerotherapy provided by myself. She returns today stating that overall the sclerotherapy did improve her symptoms but have not provided complete improvement. A venous insufficiency ultrasound was repeated yesterday and revealed evidence of severe incompetence within the right great saphenous vein within the calf and small saphenous vein of the right. There are noted varicosities which measure approximately 0.4 and greater that arise from the small saphenous vein on the right. There is also a noted incompetent perforating vein that arises in the popliteal fossa which also gives rise to varicosities within the calf. All of which also measure anywhere between 0.4 cm to 0.6 cm. The left lower extremity reveals evidence of previous ablation within the great saphenous vein but there is evidence of incompetence within the remaining great saphenous vein of the calf. Furthermore, there is evidence of an incompetent anterior accessory great saphenous vein that appears to extend into the pelvis. The following portions of the patient's history were reviewed and updated as appropriate: allergies,current medications, family history, medical history, social history, surgical history, problem list, labs, diagnostics tests.. I reviewed the pertinent clinical notes in the electronic health record. OBJECTIVE VITALS BP 126/72 (BP Location: Right arm, Patient Position: Sitting) Pulse 69 Ht 168.9 cm Wt 68.3 kg BMI 23.94 kg/m?? PHYSICAL EXAMINATION General: Pleasant, female , in no acute distress. Alert and oriented. Eyes: Anicteric Head: Normocephalic, nontraumatic Skin: Appropriately warm and dry to touch. Mild hemosiderin deposition throughout bilateral medial calves. No atrophie krystyna, lipodermatosclerosis, or eczema. Multiple large bulging varicosities noted throughout thigh and calve regions bilaterally. Heart: Regular rate and rhythm. Vessels: (Right/left) dorsalis pedis 3/3, posterior tibial 3/3 Lungs: Non-labored respirations. Abdomen: Non-obese Extremities: No evidence of clubbing or cyanosis. Edema trace DIAGNOSTIC REVIEW All labs and diagnostic studies were reviewed. ?? ASSESSMENT / PLAN #1 Varicose Vein Lower Extremity With Pain Bilateral #2 Insufficiency Venous Peripheral Ms. Sheikh returns for evaluation of her known venous insufficiency. She has not had any significant changes of her incompetence and continues to reveal evidence of prominent varicosities bilaterally. She did he feel that sclerotherapy in the past has provided her with improvement of her symptoms. She has routinely been wearing compression stockings on a daily basis for several years. Despite this,she continues to have symptoms. We discussed returning to Dr. Mello for consideration of treatment of her venous incompetence. She is quite concerned regarding the potential for nerve damage in at this time and would prefer to continue with sclerotherapy. But due to continued lack of resolution of varicosities and discomfort I believe that it may be best that she review with Dr. Mello prior to proceeding with sclerotherapy. If after follow up discussion with Dr. Mello, she should elect to proceed with sclerotherapy I would be happy to assist her. She is aware of the risks involved with sclerotherapy as she has undergone this in the past. These risks would include slight tingling/burning which goes away within five to ten minutes, bruising 5% chance, hyperpigmentation about 20% chance (fades away in two months), small clot formation (usually dissolves or treated during followup), allergic reaction, ulcer formation (less than 1% chance), and a 0.1% risk of DVT or arterial injury. We discussed the need for approximately 3-4 sessions of sclerotherapy. We will plan to schedule her accordingly. She will be undergoing a left hip surgery in September. I advised her that she should avoid sclerotherapy for approximately 2- 3 months following her hip surgery to assure that she is ambulating appropriately and at lesser risk of DVT. She is able to verbalize understanding and would like to proceed. Questions were answered to her satisfaction. PATIENT EDUCATION Ready to learn, no apparent learning barriers were identified; learning preferences include listening. Explained diagnosis and treatment plan; patient expressed understanding of the content Juanita Vaz APRN, C.N.P. ENT ADMINISTRATOR documented in this encounter Plan of Treatment Upcoming Encounters Date Type Specialty Care Team Description 09/08/2022 Procedure visit Aesthetic Medicine and Juanita Vaz, Surgery CLAUDIA, C.N.P. [address] [place] [address] (Charlotte bentley) 09/08/2022 Comprehensive Visit Aesthetic Medicine Lucero Mckeon Surgery Francesca, Ph.D. [address] [place] [address] (Charlotte bentley) Scheduled Orders Name Type Priority Associated Diagnoses Order S chedule Sclerotherapy Procedures Routine Varicose Vein Lower 3 Occur rences starting Extremity With Pain 08/01/20 20 until Bilateral 08/01/2023, 2 c ompleted documented as of this encounter Results Sclerotherapy (04/14/2021 7:45 AM CDT) Narrative MMODAL - 04/14/2021 7:45 AM CDT Juanita Vaz APRN, C.N.P. ? 04/14/2021 12:36 PM Proceduralist: ?JAN Informed consent obtained: ??Yes I discussed the [...] of legs were obtained after consent using [facility] approved and s [employer] device and loaded to patient's medical record. [...] Number of injections: ??Approximately 75 -[address] [place] used: 30 gauge Complications: ??No apparent complicatio [...] Phon e Number MMODAL MMODAL NA Sclerotherapy (01/09/2021 3:00 PM CDT) Narrative MMODAL - 01/09/2021 3:00 PM CDT Radha Mobley APRN, C.N.P. ? 01/09/2021 ??4:42 PM Proceduralist: Radha Mobley APRN, PAUL; Juanita Vaz [...] of legs were obtained after consent using [facility] approved [place] s [employer] device and loaded to patient's medical record. [...] Number of injections: ??Approximately 75 -[address] [place] used: 30 gauge Complications: ??No apparent complicatio [...] Lower Extremity With Pain Bilateral - Primary Insufficiency Venous Peripheral Varicose Vein Lower Extremity With Pain Bilateral - Primary Varicose Vein Lower Extremity With Pain Bilateral - Primary documented in this encounter Care Teams Outpatient Dietitian Relationship Specialty Start Date End Date Elsewhere, Pcp PCP - General Internal Medicine 07/03/17 documented as of this encounter
--- OUTSIDE RECORDS SUMMARY | 2022-07-30 19:54 | XMS_ITS | Encounter Summary ---
:1945 [facility] Address [address] [place] [address] Care Team Providers Name Role Phone Elsewhere, Pcp Primary Care Provider Unavailable Encounter Details Date Type Department Care Team Description 09/11/2020 Surgery [facility] Ángel Apodaca, ARTHROPLASTY TOTAL HIP, [address] [facility] Jody.DAnali DIRECT ANTERIOR. [place], [place] [address] [facility] [address] [place], [place] [phone] (Wo rk) Social History Tobacco Use Types [...] or relatives? How often do you attend zoroastrian or More than 4 times per year 01/28/2021 mormonism services? Do you belong to any clubs or Yes 01/28/2021 organizations such as zoroastrian groups, unions, fraternal or athletic groups, or [...] have completed or the highest Armando, MEd, SUPPORT COORDINATOR, ALL) degree you have received? Sex Assigned at Date Recorded Female 07/26/2020 9:06 PM CDT documented as of this encounter Last Filed Vital Signs Vital Sign Reading Time Taken Comments Blood Pressure 132/66 09/11/2020 6:07 AM TREASURER Pulse 69 09/11/2020 6:07 AM TREASURER Temperature 36.8 ??C (98.2 ??F) 09/11/2020 6:07 AM TREASURER Respiratory Rate 16 09/11/2020 6:07 AM TREASURER Oxygen Saturation 97% 09/11/2020 6:07 AM TREASURER Inhaled Oxygen Concentration - - Weight 65.5 kg (144 lb 6.4 oz) 09/11/2020 6:07 AM TREASURER Height 166 cm (5' 5.35) 09/11/2020 6:07 AM TREASURER Body Mass Index 23.77 09/11/2020 6:07 AM TREASURER documented in this encounter Discharge Summaries Steven Gupta M.D. - 09/12/2020 8:50 AM CST DISCHARGE SUMMARY BRIEF OVERVIEW Hospital: [facility] Discharge Provider: Ángel Apodaca M.D. Primary Team: [facility] - [facility] Primary Care Providers: Elsewhere, Pcp (General) No address on file Primary Care Provider Phone Number: None Primary Care Provider Fax Number: None Other Providers: None Admission Date: 09/11/2020 Discharge Date: 09/12/2020 PRINCIPAL DIAGNOSIS Primary Osteoarthritis Hip Left SECONDARY DIAGNOSES Principal Problem: Primary Osteoarthritis Hip Left Active Problems: Hypertension Essential Primary Osteoporosis Hyperlipidemia Post Operative Nausea/Vomiting Resolved Problems: * No resolved hospital problems. * Surgery Information This Encounter Past Procedures (09/13/2019 to Today) Date Procedures Providers Location 09/11/2020 ARTHROPLASTY TOTAL HIP, DIRECT ANTERIOR. Ángel Apodaca M.D.Rames, Richard D, M.D.Lee, Dustin R, M.D. [facility] OR DISCHARGE DISPOSITION Home or Self Care [1] ACTIVE ISSUES REQUIRING FOLLOW UP OUTPATIENT FOLLOW UP For appointment details refer to your Patient Appointment Guide. TEST RESULTS PENDING AT DISCHARGE Pending Labs None DETAILS OF HOSPITAL STAY REASON FOR ADMISSION Primary Osteoarthritis Hip Left HOSPITAL COURSE Surgery Information This Encounter Past Procedures (09/13/2019 to Today) Date Procedures Providers Location 09/11/2020 ARTHROPLASTY TOTAL HIP, DIRECT ANTERIOR. Ángel Apodaca M.D.Pb Marshall M.D.Steven Gupta M.D. [facility] Yamileth Ramona Sheikh was taken to the operative room by Ángel Apodaca MD for the procedure listed above. The intraoperative as well as the immediate postoperative course were uncomplicated. For further details of the surgery please see the operative note. The patient was transferred from the PACU to the general care floor for continued observation and monitoring. She progressed in the usual post-operative fashion without complications. The patient was treated with perioperative IV antibiotics. She was given liquids by mouth and eventually advanced as toleratedtowards a more general diet. Her pain was well controlled with oral pain medications. Physical therapy / Occupational therapy was consulted for assistance with mobilization and gait training. She was mobilizing without difficulty and was compliant with any activity restrictions. Her incision remained intact with no concerns. Her bowel and bladder function were acceptable. She then met criteria for discharge and was later dismissed from the hospital. For any further details please see the most recentorthopedic surgery progress note and any other co-managing teams dated 09/12/2020. CONSULTS ORDERED DURING THIS ADMISSION IP CONSULT TO STEEL DIE PRESS SET UP OPERATOR LOAD DISPATCHER LOCAL CONDITION AT DISCHARGE stable Discharge instructions were provided to the patient and caregiver(s). SURER documented in this encounter Discharge Instructions AttachmentsThe following attachments cannot be sent through Care Everywhere. Exercises for the Legs (Sitting) (Romanian)Ondansetron (By mouth, Into the mouth) (Romanian)Celecoxib (By mouth) (Romanian)Acetaminophen (By mouth) (Romanian) Oxycodone, Rapid Release (By mouth) (Romanian)Omeprazole (By mouth) (Romanian) Senna (By mouth) (Romanian)Aspirin (By mouth) (Romanian)documented in this encounter Medications at Time of [...] as possible. documented as of this encounter Progress Notes Marianna Bob P.T., D.P.T. - 09/12/2020 1:31 PM CST Physical Therapy Inpatient Treatment Note SUBJECTIVE Patient's Name: Yamileth Greene Kori Referring/Attending: Ángel Apodaca M.D. Medical Diagnosis: Primary Osteoarthritis Hip Left [M16.12] Reason for Referral: PT Evaluate and Treat Physical therapy treatment. Left lower extremity weight-bearing as tolerated. Direct anterior approach total hip arthroplasty protocol. Onset Date: 09/11/20 Payor: MEDICARE / Plan: MEDICARE A AND B / Product Type: Medicare / History of Present Illness: Patient is a 75-year-old female status post left direct anterior approach total hip arthroplasty on the left lower extremity history of left primary osteoarthritis. History of right total hip arthroplasty in 2006, 1 month status post experienced dislocation. Family/Caregiver Present: No Patient Comments: Pain at beginning of session rated 4/10 in the left hip, end of session pain reported 5/10. Patient requesting to review ambulation and mobility with bilateral axillary crutches this date. Activity Orders (From admission, onward) Start Ordered 09/11/20 1244 Activity: Up with Assistance Until discontinued Comments: Up to chair the same day of surgery. Question: Activity Level: Answer: Up with Assistance 09/11/20 1243 Precautions Weight Bearing Status: Left lower extremity weight-bearing as tolerated Other Precautions: No hip precautions due to direct anterior approach Fall Risk (65 and older) Are you fearful of falling?: (Intermittent fear of falling prior to knee injections on the right lower extremity) OBJECTIVE Treatment consisted of: Bed Mobility - Supine to Sit # of Assistants: 1 Level of Assistance: Minimal assistance Device: None Cuing: Verbal, Tactile Comments: Physical assist provided for the left lower extremity. Educated and reviewed proper use ofleg rodbuster. Supervision level assist required when patient utilized leg rodbuster with transfer. Bed Mobility - Sit to Supine # of Assistants: 1 Level of Assistance: Minimal assistance Device: None Cuing: Verbal, Tactile Comments: Physical assist provided for the left lower extremity. Educated and reviewed proper use ofleg rodbuster. Supervision level assist required when patient utilized leg rodbuster with transfer. Bed Mobility - Scooting Level of Assistance: Independent Device: None Comments: Supine, utilizing right lower extremity Transfer - Sit to Stand # of Assistants: 1 Device: Front wheeled walker(And bilateral axillary crutches) Level of Assistance: Minimal assistance Comments: Reviewed transfer utilizing front wheeled walker. Instructed on transfer utilizing bilateral axillary crutches. At this time script writer recommending use of front wheeled walker until patient is more stable upon standing. Transfer - Stand to Sit # of Assistants: 1 Level of Assistance: Minimal assistance Device: Front wheeled walker(And bilateral axillary crutches) Comments: Reviewed transfer utilizing front wheeled walker. Instructed on transfer utilizing bilateral axillary crutches. At this time script writer recommending use of front wheeled walker until patient is more stable upon standing. Transfers - Car Comments: Verbally reviewed car transfers with patient. Gait Training # of Assistants: 1 Level of Assistance: Minimal assistance Device: Axillary crutches, Front wheeled walker Distance (m): 40 m(20 m with front wheeled walker, 20 m with axillary crutches) Surface: Level Cuing: Verbal, Tactile Quality: Antalgic, Decreased stance time L, Step to Assessment of Gait: Patient demonstrating difficulty during ambulation utilizing axillary crutches, crutch placement to narrow. Patient demonstrating instability with axillary crutch use, recommend useof front wheeled walker upon initial discharge home to improve safety and stability. Training/Intervention: Verbal and tactile cues provided for bilateral axillary crutch placement, step length, sequencing during ambulation. Response: No adverse reactions during ambulation. Stairs # of Assistants: 1 Level of Assistance: Minimal assistance # Stairs: 6 Rails: 1, None(Reviewed stair mobility utilizing bilateral crutches and stair mobility with unilateral crutch and unilateral rail) Device: Single rail, Axillary crutches Comments: (Patient requires frequent verbal cues for sequencing and navigation of stairs with bilateral axillary crutches and when completing stair mobility with unilateral rail and unilateral crutch) Exercise - Protocol Total Joints Exercise: Total hip - anterior Total Joints Exercise Comment: Patient educated and completed 10 repetitions of seated long arc quads, 5second hold it in knee extension and 5secomd hold in knee flexion. Verbally reviewed ankle pumps and quad sets. Demonstrated and verbally reviewed progression of standing exercises to be completed at 4 weeks status post surgery. Reviewed handouts provided at initial evaluation The following coordination of care occurred today: Contacted Patient's nurse regarding patient's status during therapy session Patient was left in bed at end of session with call light in reach, all needs met and questions answered. Contact monitoring: PPE used during therapy: Therapist was wearing the following PPE throughout entire session: surgicalmask and eye protection Patient was wearing a mask during therapy session: yes Additional Staff Present During Session: Delmy Cuellar PT, DPT Outcome Measures AM-PAC Basic Mobility (V.2) How much help from another person do you currently need???If the patienthasn't done an activity recently, how much help from another person do you think he/she would need if he/she tried? 1. Turning from your back to your side while in a flat bed without using bedrails?: None 2. Moving from lying on your back to sitting on the side of a flat bed without using bedrails?: A Little 3. Moving to and from a bed to a chair (including a wheelchair)?: A Little 4. Standing up from a chair using your arms (e.g., wheelchair, or bedside chair)?: A Little 5. To walk in hospital room?: A Little 6. Climbing 3-5 steps with a railing?: A Little -[facility] Basic Mobility (V.2) Raw Score: 19 -[facility] Basic Mobility (V.2) Standardized Score: 42.48 Interpretation: Clinicians answer the -[facility] Inpatient Short Form based on observed patient activityand/or clinical judgement (ie. patient can be scored without physically performing each activity) According to scoring guidelines: Those going to home had an average score of 20.1 Those going home with home care had an average score of 17.9 Those going to SNF had an average score of 14 Those going to IRF had an average score of 13.6 Those going to a LTAC had an average score of 11.5 Assessment Barriers to Discharge: None Discharge Recommendation: Intermittent supervision Equipment Recommended PT: Cane, Crutches, Walker Equipment Vendor PT: Patient will not have access to a walker upon discharge, purchased through [employer]. DME form filled out. Clinical Impression of today's session: Improved gross mobility this date. Progressed ambulation from front wheeled walker to use of bilateral axillary crutches, per patient request. Upon initiation of ambulation with crutches patient demonstrating difficulty sequencing axillary crutches, resulting in instability. Discussed safety options with patient, recommending initial use of front wheeled walker upon discharge home. Patient receptive and agreeable. Extensive verbal cues required for 1 step directions during stair mobility with bilateral axillary crutches and during stair mobility with a lateral axillary crutch in unilateral rail. Patient stable with stair mobility when provided adequate time. All goals met during session, no further questions, with discharge from therapy services. Rehab potential: Ms. Sheikh has Good potential to achieve established physical therapy goals within the time frame outlined below. Functional Goals and Timeframes: PT Inpatient Goals PT Goal #1: Patient will ambulate 25 meters using a step to gait pattern with supervision or minimalassistance using a front wheeled walker in order to be a household ambulator. Goal met PT Goal #2: Patient will demonstrate an effective stair pattern for >3 stairs using unilateral rail and unilateral crutch height and >3 stairs utilizing bilateral axillary crutches with supervision or minimal assistance x1 in order to enter their home and access the bathroom. Goal met PT Goal #3: Patient will perform all transfers with supervision or min assist x1 using a front wheeled walker in order to decrease caregiver burden. Goal met PT Goal #4: Patient will demonstrate understanding of home exercise program to be performed daily inorder to improve rehab potential and independence. Goal met Progress: Improving as expected Plan Treatment Plan: Plan: Discontinue therapy PT Frequency: Requires Inpatient Follow-Up: No Plan Comments: Patient met all acute therapy goals during session. No further questions. Will discharge from therapy services at this time. Treatment interventions may include: Therapeutic exercise, Therapeutic functional activity, Gait training Billing: Time Spent with Patient Gait Training (min): 30 min Therapeutic Activity (min): 13 min Total Timed Units (min): 43 min Total Treatment Time (min): 43 min Marianna Bob P.T., D.P.T. SURER Steven Gupta M.D. - 09/12/2020 6:01 AM CST SUBJECTIVE No acute events overnight. Patient was able to work with PT yesterday. During PT patient did experience an episode nausea and dizziness with post PT blood pressure readings little soft. Patient felt fine after sitting down. She is feeling much better this morning and was given some fluids. She was asymptomatic this morning, denies chest pain, shortness of breath, lightheadedness and constitutional symptoms. She has been voiding spontaneously and tolerating diet. She will work PT get today. Anticipating discharge later today. OBJECTIVE VITAL SIGNS Temperature: [36.2 ??C-36.6 ??C] 36.5 ??C Heart Rate: [66-72] 66 Resp Rate: [13-20] 14 Blood Pressure: (85-116)/(48-65) 116/62 SpO2: [96 %-100 %] 99 % Flow Rate (L/min): [0 L/min] 0 L/min Pulse Rate: [57-72] 63 I/O last 3 completed shifts: In: 5204.6 [P.O.:1215] Out: 2900 [Urine:2200; Blood:700] PHYSICAL EXAM General: Patient was resting supine in hospital bed, very pleasant, conversant. NAD. Neuro: Alert. Answers questions appropriately. Cardiovascular: Regular rate. Respiratory: Regular respiratory rate. Normal work of breathing. Musculoskeletal: On examination of the operative lower extremity, surgical dressings clean, dry, andintact without strikethrough. Fires quadriceps, tibialis anterior, EHL, EDL, FHL, FDL, gastrocsoleuscomplex, and peroneals. Sensation intact to gross light touch in the deep peroneal, superficial peron eal, tibial, saphenous, and sural distributions. Bilateral calves are soft and nontender. Toes warm and well-perfused with capillary refill less than 2 sec. Palpable dorsalis pedis pulse. DIAGNOSTICS Recent Labs 09/12/20 0432 WBC 11.8 H HGB 8.8 L HCT 26.7 L MCV 94.0 PLT 116 L No results for input(s): NA, K, CL, BICARB, CREATININE, BUN, GLUCOSE, MG, CA in the last 48 hours. No results for input(s): INR, PT in the last 48 hours. No results for input(s): SEDRATE, CRP in the last 48 hours. ASSESSMENT / PLAN IMPRESSION/REPORT/PLAN #1 Hypertension Essential Primary #2 Osteoporosis #3 Hyperlipidemia #4 Post Operative Nausea/Vomiting #5 Primary Osteoarthritis Hip Left Surgical Diagnosis/Procedure(s) 1. left direct anterior total hip arthroplasty Active Issues # Acute blood loss anemia - monitor CBC and transfuse as needed. # Hypotension, requiring fluid boluses - vital signs monitored. Patient experienced orthostatic hypotension, mild with ambulation. Responsive to fluid bolus. # Postop nausea vomiting, patient tolerating Zofran Comorbidities Present on Admission # Hypertension - continue home medications; monitor vital signs. Activity/Weightbearing: WBAT operative lower extremity VTE Prophylaxis: SCDs; ASA 81mg PO BID x 6 weeks following surgery Antibiotics: Complete 24 hours of perioperative antibiotics Dressing: Managed by service Imaging: Completed POD #0 Labs: Lab Results Component Value Date WBC 11.8 (H) 09/12/2020 HGB 8.8 (L) 09/12/2020 HCT 26.7 (L) 09/12/2020 PLT 116 (L) 09/12/2020 CREATININE 0.77 05/16/2020 Pain: Multimodal regimen per orders Diet: Adult Diet Regular PT/OT: Consulted for gait training and mobilization per [facility] protocol Anticipated Disposition: Home likely today after PT Follow-up: Patient will follow-up with Dr. Apodaca in the clinic in approximately 3 months Steven Gupta M.D. Please contact the [facility] service at [phone] with any questions or concerns regarding this patient. If outside of 06:00 - 18:00 on weekdays or any time on the weekend, please contact the Orthopedic Surgery house resident prison guard supervisor at [phone]. SURER Pb Marshall M.D. - 09/11/2020 3:25 PM CST SUBJECTIVE Patient doing well on examination. Some lightheadedness when out of bed with therapy. Pain well-controlled on current multimodal regimen. Denies chest pain, palpitations, shortness of breath, or lightheadedness. No acute orthopedic concerns at this time. OBJECTIVE VITAL SIGNS Temperature: [36.2 ??C-36.8 ??C] 36.2 ??C Heart Rate: [66-72] 66 Resp Rate: [13-20] 16 Blood Pressure: (85-132)/(48-66) 112/60 SpO2: [97 %-100 %] 100 % Pulse Rate: [58-71] 64 I/O last 3 completed shifts: In: 2600 Out: 700 [Blood:700] PHYSICAL EXAM General: NAD. Neuro: Alert. Answers questions appropriately. Cardiovascular: Regular rate. Respiratory: Regular respiratory rate. Normal work of breathing. Musculoskeletal: On examination of the operative lower extremity, surgical dressings clean, dry, andintact without strikethrough. Fires quadriceps, tibialis anterior, EHL, EDL, FHL, FDL, gastrocsoleuscomplex, and peroneals. Sensation intact to gross light touch in the deep peroneal, superficial peron eal, tibial, saphenous, and sural distributions. Bilateral calves are soft and nontender. Toes warm and well-perfused with capillary refill less than 2 sec. Palpable dorsalis pedis pulse. DIAGNOSTICS No results for input(s): WBC, HGB, HCT, MCV, PLT in the last 48 hours. No results for input(s): NA, K, CL, BICARB, CREATININE, BUN, GLUCOSE, MG, CA in the last 48 hours. No results for input(s): INR, PT in the last 48 hours. No results for input(s): SEDRATE, CRP in the last 48 hours. ASSESSMENT / PLAN IMPRESSION/REPORT/PLAN Surgical Diagnosis/Procedure(s) 1. left direct anterior total hip arthroplasty Active Issues # Acute blood loss anemia - monitor CBC and transfuse as needed. Comorbidities Present on Admission # Hypertension - continue home medications; monitor vital signs. Activity/Weightbearing: WBAT operative lower extremity VTE Prophylaxis: SCDs; ASA 81mg PO BID x 6 weeks following surgery Antibiotics: Complete 24 hours of perioperative antibiotics Dressing: Managed by service Imaging: Completed POD #0 Labs: Lab Results Component Value Date WBC 5.2 07/01/2020 HGB 13.8 07/01/2020 HCT 42.8 07/01/2020 PLT 140 (L) 07/01/2020 CREATININE 0.77 05/16/2020 Pain: Multimodal regimen per orders Diet: Adult Diet Full Liquid PT/OT: Consulted for gait training and mobilization per [facility] protocol Anticipated Disposition: Home likely tomorrow after PT Follow-up: Patient will follow-up with Dr. Apodaca in the clinic in approximately 3 months Marco Antonio Marshall M.D. Please contact the [facility] service at [phone] with any questions or concerns regarding this patient. If outside of 06:00 - 18:00 on weekdays or any time on the weekend, please contact the Orthopedic Surgery house resident prison guard supervisor at [phone]. SURER Reggie Gray - 09/11/2020 7:10 AM CST Encounter: AM Admit Jane Tradition: Presybeterian. Ms. Sheikh requested prayer before surgery. Shared prayer. Plan: Will remain available for spiritual care as needed or requested. Chaplains can be contacted bypaging [phone] ([facility]). SURER documented in this encounter Consult Notes Vini James M.T.S. - 09/12/2020 1:02 PM CST Encounter: Communion Situation: Communion has been requested for Yamileth Sheikh's room on 09/12/20. Patient was alertlying in bed and mentioned that she will be discharged today. Family: None Jane Tradition: The patient's amish is Presybeterian. Communion: The Sacrament was administered with prayers and blessings. Plan: Will remain available for spiritual care as needed or requested. Chaplains can be contacted bypaging [phone] ([facility]). Fr. Jakob James [facility] SURER Reggie Gray - 09/12/2020 12:11 PM CSTAssociated Order(s): IP CONSULT TO STEEL DIE PRESS SET UP OPERATOR LOAD DISPATCHER LOCAL Encounter: Spiritual Care Consult. Jane Tradition: Presybeterian. Ms. Sheikh requested communion. Referred to the Presybeterian chaplainfor follow up. Plan: Will remain available for spiritual care as needed or requested. Chaplains can be contacted bypaging [phone] ([facility]). SURER Yamileth King O.T. - 09/12/2020 10:58 AM CST Occupational Therapy Acute Hospital Inpatient Evaluation/Treatment By co-signing this note, the provider certifies the therapy being provided to this patient is reasonable and necessary for the diagnosis or treatment of this patient. SUBJECTIVE Patient's Name: Yamileth Sheikh Referring/Attending Provider: Ángel Apodaca M.D. Medical Diagnosis: Primary Osteoarthritis Hip Left [M16.12] Reason for Referral: Occupational Therapy Evaluation and Treatment OT to evaluate and treat orthopedic rehab. Onset Date: 09/11/20 Payor: MEDICARE / Plan: MEDICARE A AND B / Product Type: Medicare / PERTINENT MEDICAL / SURGICAL HISTORY: Patient Active Problem List Diagnosis ??? Hypertension Essential Primary ??? Osteoporosis ??? Hyperlipidemia ??? 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 Tinnitus Bilateral ??? Loss Hearing Sensorineural Asymmetrical ??? Post Operative Nausea/Vomiting ??? Primary Osteoarthritis Hip Left Past Surgical History: Procedure Laterality Date ??? BREAST SURGERY Reduction 2009 Biopsies 1994, 1997, 2016 ??? CATARACT EXTRACTION, BILATERAL Bilateral 2017 Lens: [employer] model [id number] ??? SECTION 10/28/1978 ??? DILATATION AND CURETTAGE 1996 ??? DILATATION AND CURETTAGE N/A 05/06/2018 Procedure: DILATATION, CURETTAGE.; Surgeon: Kaleigh Francois M.D.; Location: [facility] OR ??? ENDOMETRIAL BIOPSY N/A 06/26/2016 Diagnostic hysteroscopy with ultrasound guidance endometrial smapling. ??? HYSTEROSCOPY N/A 06/23/2016 >1. Cervical dilation. 2. Aborted diagnostic hysteroscopy. 3. Paracervical block. ??? HYSTEROSCOPY N/A 05/06/2018 Procedure: Operative HYSTEROSCOPY.; Surgeon: Kaleigh Francois M.D.; Location: [facility] OR ??? JOINT REPLACEMENT Right 2006 ALEKS ??? LYSIS ADHESIONS OVARY N/A 05/06/2018 Procedure: LYSIS ADHESIONS; Surgeon: Kaleigh Francois M.D.; Location: [facility] ??? SACRAL NERVE STIMULATOR PLACEMENT Interstim icon ??? SHOULDER SURGERY Right 2019 History of Present Illness:Patient is a 75-year-old female status post left direct anterior approachtotal hip arthroplasty on the left lower extremity history of left primary osteoarthritis. History of right total hip arthroplasty in 2006, 1 month status post experienced dislocation. Occupational Profile: Prior Function / Occupational Profile Level of Charles Mix: Independent with ADLs and functional transfers, Independent with homemaking with ambulation Lives With: Alone ADL Assistance: Independent Homemaking Assistance: Independent Driving: Independent Occupational Role: Retired Home Living Type of Home: House Home Layout: Two level Home Access: Stairs to enter with rails Entrance Stairs: Rails: Both Entrance Stairs: Number of Steps: 4-5 Bathroom Shower/Tub: Walk-in shower Bathroom Toilet: Standard Home Equipment Home Adaptive Equipment: Etl Data Architect Gait Devices Owned: Front-wheeled walker, Cane, Axillary crutches Bathroom Equipment: Shower chair with back, Raised toilet seat without rails Family/Caregiver Present: No Patient/Caregiver Goals: Anticipating discharge to his son's home, and friend's home, alternating residencies until October. Patient Comments: Patient reports 4/10 left hip pain. Patient is in agreement to occupational therapy evaluation and treatment. Activity Orders (From admission, onward) Start Ordered 09/11/20 1244 Activity: Up with Assistance Until discontinued Comments: Up to chair the same day of surgery. Question: Activity Level: Answer: Up with Assistance 09/11/20 1243 Precautions Weight Bearing Status: left lower extremity weight bearing as tolerated Fall Risk (65 and older) Fall in the last 12 months: No Are you fearful of falling?: Yes OBJECTIVE Balance Static Standing-Balance: Good (Maintains balance without support) Dynamic Standing-Balance: Good (Maintains balance without support) General ROM / Strength Screening ROM - Upper Extremity Screen: Addressed, no concerns noted ROM - Lower Extremity Screen: Impaired left Strength - Upper Extremity Screen: Addressed, no concerns noted Strength - Lower Extremity Screen: Impaired left Cognition Overall Cognitive Status: Intact Attention: Addressed, no concerns noted Orientation: Oriented X4 Following Commands: Follows all commands and directions without difficulty Bed Mobility - Supine to Sit # of Assistants: 1 Level of Assistance: contact guard assistance Cuing: Verbal Comments: Therapist facilitated instruction on use of gait belt to assist with moving left leg to the edge of the bed. Therapist reviewed with patient total hip arthroplasty positions for comfort as per protocol. Patient verbalizes a good understanding of these as they relate to activities of daily living. Reviewed bathroom adaptive equipment, patient has needed bathroom modifications at her home. Patient may want touse a shower chair while she is staying at her son's and friend's home. Therapist reviewed fall prevention strategies including using organ tuner and modified golfer's lift as appropriate to assist with picking up light objects from low surfaces, making simple environmental changes to reduce falling, and using mind fullness while navigating the environment. Therapist facilitated lower body dressing instru ction using modified techniques and adaptive equipment while sitting up in bedside chair. Therapist also facilitated toileting. Patient required moderate verbal cuing to remember bring her left foot forward transferring on and off toilet and verbal cuing to for correct use of walker. Patient reports she is interested in using crutches versus the walker. Patient transferred into bedside chair with contact guard assistance to wait for her therapy with PT. . Communication: The patient's nurse was contacted and patient's status was discussed. Patient was left in bedside chair at end of session with call light in reach, all needs met and questions answered. Contact monitoring: PPE used during therapy: Therapist was wearing the following PPE throughout entire session: surgicalmask and eye protection Patient was wearing a mask during therapy session: no Outcome Measures Current ADL Status: [facility] Inpatient Short Form: Putting on and taking off regular lower body clothing?: A Little Putting on and taking off regular upper body clothing?: None Taking care of personal grooming such as brushing teeth?: None Bathing (including washing, rinsing, drying)?: A Little Toileting, which includes using toilet, bedpan, or urinal?: A Little Eating meals?: None Daily Activities Raw Score (max 24): 21 Daily Activities Standardized Score: 44.27 Interpretation: Clinicians answer the [facility] Inpatient Short Form based on observed patient activityand/or clinical judgement (ie. patient can be scored without physically performing each activity) According to scoring guidelines: Those going to home had an average score of 20.1 Those going home with home care had an average score of 17.9 Those going to SNF had an average score of 14 Those going to IRF had an average score of 13.6 Those going to a LTAC had an average score of 11.5 Assessment Barriers to Discharge: None Discharge Recommendation: Intermittent supervision Clinical Impression: Currently, patient presents with impairments including left lower extremity weakness and decreased active range of motion, postop swelling and pain resulting in the following functional deficits: Patient appears to have some difficulty with managing walker during ambulation and states she will prefer to use the crutches instead. Patient demonstrates contact guard assist with transferring on and off toilet with verbal cuing to remember proper hand and foot placement. Patient was instructed on modified lower body dressing using adaptive equipment and fall prevention strategies. Patient will benefit from another session of occupational therapy to review as needed. Rehab potential: Ms. Sheikh has good potential to achieve established occupational therapy goals within the time frame outlined below. Tiered OT Evaluation Codes: Personal Factors: Needs assistive device Performance Deficits: 1 - 3 performance deficits Functional Goals: OT Goal #1: Patient will verbalize understanding positions of comfort in regards to activities of daily living. Goal met OT Goal #2: Patient will verbalize understanding of fall prevention strategies. Goal met OT Goal #3: Patient will complete toileting with modified independence. OT Goal #4: Patient will verbalize understanding and demonstrate modified lower body dressing techniques using adaptive equipment as needed. Progress: Progressing toward goals Plan Patient agrees with the plan of care and goals. Plan: Continue with current plan OT Frequency: 1-2x/wk Requires Inpatient Follow-Up: Yes OT - Next Inpatient Appointment: 09/13/20 Continue with current plan Treatment interventions may include: Self-care/home management Billing: Time Spent with Patient OT Evaluation (min): 9 min Home Management Training (min): 35 min Time Calculation Total Timed Units (min): 35 min Total Treatment Time (min): 44 min Yamileth King O.T. Marianna Silver P.T., D.P.T. - 09/11/2020 2:54 PM CST Physical Therapy Inpatient Evaluation/Treatment By co-signing this note, the provider certifies the therapy being provided to this patient is reasonable and necessary for the diagnosis or treatment of this patient. SUBJECTIVE Patient's Name: Yamileth Sheikh Referring/Attending Provider: Ángel Apodaca M.D. Medical Diagnosis: Primary Osteoarthritis Hip Left [M16.12] Reason for Referral: PT Evaluate and Treat Physical therapy evaluate and treat. Left lower extremityweight-bearing as tolerated. Direct anterior approach total hip arthroplasty protocol. Onset Date: 09/11/20 Payor: MEDICARE / Plan: MEDICARE A AND B / Product Type: Medicare / PERTINENT MEDICAL / SURGICAL HISTORY: Patient Active Problem List Diagnosis ??? Hypertension Essential Primary ??? Osteoporosis ??? Hyperlipidemia ??? 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 Tinnitus Bilateral ??? Loss Hearing Sensorineural Asymmetrical ??? Post Operative Nausea/Vomiting Past Surgical History: Procedure Laterality Date ??? BREAST SURGERY Reduction 2010 Biopsies 1994, 1997, 2016 ??? CATARACT EXTRACTION, BILATERAL Bilateral 2017 Lens: [employer] model ZCB00 ??? SECTION 10/28/1978 ??? DILATATION AND CURETTAGE 1996 ??? DILATATION AND CURETTAGE N/A 05/06/2018 Procedure: DILATATION, CURETTAGE.; Surgeon: Kaleigh Francois M.D.; Location: [facility] OR ??? ENDOMETRIAL BIOPSY N/A 06/26/2016 Diagnostic hysteroscopy with ultrasound guidance endometrial smapling. ??? HYSTEROSCOPY N/A 06/23/2016 >1. Cervical dilation. 2. Aborted diagnostic hysteroscopy. 3. Paracervical block. ??? HYSTEROSCOPY N/A 05/06/2018 Procedure: Operative HYSTEROSCOPY.; Surgeon: Kaleigh Francois M.D.; Location: [facility] OR ??? JOINT REPLACEMENT Right 2006 ALEKS ??? LYSIS ADHESIONS OVARY N/A 05/06/2018 Procedure: LYSIS ADHESIONS; Surgeon: Kaleigh Francois M.D.; Location: [facility] OR ??? SACRAL NERVE STIMULATOR PLACEMENT Interstim icon ??? SHOULDER SURGERY Right 2019 History of Present Illness: Patient is a 75-year-old female status post left direct anterior approach total hip arthroplasty on the left lower extremity history of left primary osteoarthritis. History of right total hip arthroplasty in 2006, 1 month status post experienced dislocation. Prior Function / Occupational Profile Level of Charles Mix: Independent with ADLs and functional transfers Lives With: Alone ADL Assistance: Independent Homemaking Assistance: Independent Driving: Independent Occupational Role: Retired Home Equipment Home Adaptive Equipment: Etl Data Architect Gait Devices Owned: Front-wheeled walker, Cane, Axillary crutches(Jolene, friend owns walker for patient to utilize) Bathroom Equipment: Shower chair with back, Raised toilet seat without rails Home Living Type of Home: House(Will be returning home to son's house immediately upon discharge) Home Layout: Two level Home Access: Stairs to enter with rails(4-5 steps to enter) Entrance Stairs: Rails: Both(Wide) Entrance Stairs: Number of Steps: 4-5 Bathroom Shower/Tub: Walk-in shower Family/Caregiver Present: No Patient/Caregiver Goals: Anticipating discharge to his son's home, and friend's home, alternating residencies until October. Patient Comments: Patient reporting left hip pain 2/10 prior to and following therapy session. Endorses pain 4/10 during ambulation Activity Orders (From admission, onward) Start Ordered 09/11/20 1244 Activity: Up with Assistance Until discontinued Comments: Up to chair the same day of surgery. Question: Activity Level: Answer: Up with Assistance 09/11/20 1243 Precautions Weight Bearing Status: Left lower extremity weight-bearing as tolerated Other Precautions: No hip precautions due to direct anterior approach Fall Risk (65 and older) Fall in the last 12 months: No Are you fearful of falling?: Yes(Intermittent fear of falling prior to knee injections on the right lower extremity) OBJECTIVE Initial blood pressure obtained in supine 105/56, upon sitting edge of bed 111/65, following ambulation of approximately 30 the blood pressure recorded at 88/48. Final blood pressure at end of session patient is supine in bed 103/57. Cognition Overall Cognitive Status: Intact Orientation: Oriented X4 Following Commands: Follows all commands and directions without difficulty Neuro/Integumentary Screen: Neuro Screen: Intact to light touch bilateral lower extremities. Endorses slight numbness in left lower extremity General ROM / Strength Screening ROM - Upper Extremity Screen: Addressed, no concerns noted ROM - Lower Extremity Screen: Impaired left(Status post surgical) Strength - Upper Extremity Screen: Addressed, no concerns noted Strength - Lower Extremity Screen: Impaired left(Status post surgical) Bed Mobility - Supine to Sit # of Assistants: 1 Level of Assistance: Minimal assistance Device: None Cuing: Verbal, Tactile Comments: Physical assist provided for the left lower extremity Bed Mobility - Sit to Supine # of Assistants: 1 Level of Assistance: Minimal assistance Device: None Cuing: Verbal, Tactile Comments: Physical assist provided for the left lower extremity Bed Mobility - Scooting Level of Assistance: Independent Device: None Comments: Supine, utilizing right lower extremity Transfer - Sit to Stand # of Assistants: 1 Device: Front wheeled walker Level of Assistance: Minimal assistance Comments: Instructed on hand placement prior to sit/stand. Educated on placing left lower extremity anterior to right lower extremity during transfer. Transfer - Stand to Sit # of Assistants: 1 Level of Assistance: Minimal assistance Device: Front wheeled walker Comments: Instructed on hand placement prior to sit/stand. Educated on placing left lower extremity anterior to right lower extremity during transfer. Gait Assessment # of Assistants: 1 Level of Assistance: Minimal assistance Device: Four wheeled walker Distance (m): 10 m Surface: Level Cuing: Verbal, Tactile Quality: Antalgic, Decreased stance time L, Step to Training/Intervention: Verbal cues provided for step length, sequencing, front wheel wheeled walker management. Response: Patient becoming nauseous, deferring further mobility due to adverse reactions. Returned supine with blood pressure recorded at 88/48. Exercise - Protocol Total Joints Exercise: Total hip - anterior Total Joints Exercise Comment: Patient educated and completed 10 repetitions of supine ankle pumps and quad sets with 2nd hold, bilaterally. Verbally reviewed long arc quads and progression of standingexercises to be completed at 4 weeks status post surgery. Handouts provided today: Rehabilitation After Total Hip Replacement ([id number]) and Modified due to direct anterior approach, hip precautions omitted The following coordination of care occurred today: Contacted Patient's nurse regarding patient's status during therapy session Patient was left in bed at end of session with call light in reach, all needs met and questions answered. Contact monitoring: PPE used during therapy: Therapist was wearing the following PPE throughout entire session: surgicalmask and eye protection Patient was wearing a mask during therapy session: yes Additional Staff Present During Session: Delmy Cuellar PT, DPT Outcome Measures AM-PAC Basic Mobility (V.2) How much help from another person do you currently need???If the patienthasn't done an activity recently, how much help from another person do you think he/she would need if he/she tried? 1. Turning from your back to your side while in a flat bed without using bedrails?: A Little 2. Moving from lying on your back to sitting on the side of a flat bed without using bedrails?: A Little 3. Moving to and from a bed to a chair (including a wheelchair)?: A Little 4. Standing up from a chair using your arms (e.g., wheelchair, or bedside chair)?: A Little 5. To walk in hospital room?: A Little 6. Climbing 3-5 steps with a railing?: A Lot AM-PAC Basic Mobility (V.2) Raw Score: 17 [facility] Basic Mobility (V.2) Standardized Score: 39.67 Interpretation: Clinicians answer the [facility] Inpatient Short Form based on observed patient activityand/or clinical judgement (ie. patient can be scored without physically performing each activity) According to scoring guidelines: Those going to home had an average score of 20.1 Those going home with home care had an average score of 17.9 Those going to SNF had an average score of 14 Those going to IRF had an average score of 13.6 Those going to a LTAC had an average score of 11.5 Assessment Barriers to Discharge: None Discharge Recommendation: Intermittent supervision Equipment Recommended PT: Walker, Cane, Crutches Equipment Vendor PT: Patient owns all assistive devices. Clinical Impression of today's session: Currently, patient presents with impairments including left lower extremity weight-bearing as tolerated, pain, weakness resulting in the following functional deficits: Ambulation requiring assistive device, deficits in stair mobility and transfers. Currently patient is requiring Min assist for gross mo bility utilizing a front wheeled walker. Hypotensive response to ambulation, symptoms rebound upon return to supine. Initiated education and home exercise program. Rehab potential: Ms. Sheikh has Good potential to achieve established physical therapy goals within the time frame outlined below. Tiered PT Evaluation Codes: Personal Factors: Needs assistive device Examination elements: 4+ Clinical Presentation: Stable Clinical Decision Making: Low: no complicating factors, 1-2 eval elements, stable clinical presentation Functional Goals: PT Inpatient Goals PT Goal #1: Patient will ambulate 25 meters using a step to gait pattern with supervision or minimalassistance using a front wheeled walker in order to be a household ambulator. PT Goal #2: Patient will demonstrate an effective stair pattern for >3 stairs using unilateral rail and unilateral crutch height and >3 stairs utilizing bilateral axillary crutches with supervision or minimal assistance x1 in order to enter their home and access the bathroom. PT Goal #3: Patient will perform all transfers with supervision or min assist x1 using a front wheeled walker in order to decrease caregiver burden. PT Goal #4: Patient will demonstrate understanding of home exercise program to be performed daily inorder to improve rehab potential and independence. Progress: Progressing toward goals Plan Patient agrees with the plan of care and goals. Treatment Plan: Plan: Plan of care initiated PT Frequency: Daily PT Duration: Until goals met or patient is discharged. Requires Inpatient Follow-Up: Yes PT - Next Inpatient Appointment: 09/12/20 Plan Comments: Review ambulation with front wheeled walker and crutches, stair mobility, review homeexercise program, and teach progression of gait aid principles. Treatment interventions may include: Therapeutic exercise, Therapeutic functional activity, Gait training Billing: Time Spent with Patient PT Evaluation (min): 8 min Therapeutic Activity (min): 37 min Therapeutic Exercise (min): 10 min Total Timed Units (min): 47 min Total Treatment Time (min): 55 min Marianna Bob P.T., D.P.T. SURER documented in this encounter Nursing Notes Kymberly Knight R.N. - 09/12/2020 2:12 PM CST Shift Goals: Clinical Goals for the Shift: Patient will ambulate in hallway with PT Identify possible barriers to meeting goals/advancing plan of care: None End of Shift Summary: Patient met all PT goals and was able to tolerate ambulating in the hallway and doing stairs withoutbecoming dizzy/lightheaded. Patient dismissed from [facility] to [facility] with son providing transportation. Patient picked up prescriptionsof Zofran, Tramadol, Celebrex, Tylenol, Aspirin, Oxycodone, Prilosec and Senna from [facility] pharmacy upon dismissal. AVS was reviewed with patient and all questions addressed at that time. VSS upon dismissal. Kymberly Knight R.N. Problem: PAIN - ADULT Goal: PT VERBALIZES/DEMONSTRATES ADEQUATE COMFORT LEVEL OR BASELINE Outcome: Adequate for Discharge Problem: KNOWLEDGE DEFICIT Goal: Patient/family/caregiver demonstrates understanding of disease process, treatment plan, medications, and discharge instructions Outcome: Adequate for Discharge Problem: INFECTION - ADULT Goal: Absence of infection during hospitalization Outcome: Adequate for Discharge Problem: SKIN/TISSUE INTEGRITY Goal: Skin/Tissue integrity maintained or improved Outcome: Adequate for Discharge Goal: Oral and Nasal mucous membranes remain intact Outcome: Adequate for Discharge Problem: SAFETY ADULT Goal: Maintain a safe environment Outcome: Adequate for Discharge Problem: DISCHARGE PLANNING Goal: Patient discharge needs identified Outcome: Adequate for Discharge Problem: SAFETY ADULT - RISK FOR FALL AND OR FALL INJURY Goal: Patient remains free from fall/fall injury Outcome: Adequate for Discharge SURER Lesley Ortez R.N. - 09/11/2020 6:25 PM CST Problem: PAIN - ADULT Goal: PT VERBALIZES/DEMONSTRATES ADEQUATE COMFORT LEVEL OR BASELINE Outcome: Progressing Shift Goals: Clinical Goals for the Shift: Patient will ambulate in hallway with PT Identify possible barriers to meeting goals/advancing plan of care: none End of Shift Summary: Patient ambulated in hallway with PT, but became lightheaded, nauseated and diaphoretic. Systolic pressure dipped to 80s, but came back up to low 100s when laying back in bed. Patient later pivoted to commode with nursing and was asymptomatic. Pain controlled with tylenol and ice. Patient refused additional medications. SURER documented in this encounter OR Notes Op Note - Ángel Apodaca M.D. - 09/11/2020 8:49 AM CST FULL OP NOTE Procedure(s) (LRB): ARTHROPLASTY TOTAL HIP, DIRECT ANTERIOR. (Left) Surgeon(s) and Role: * Ángel Apodaca M.D. - Primary * Pb Marshall M.D. - Net Mobile Developer * Steven Gupta M.D. - Other [employer] Anesthesia Type Regional Pre-operative Diagnosis Primary Osteoarthritis Hip Left Post-operative Diagnosis Primary Osteoarthritis Hip Left Findings As expected. Complications None Description of Procedure The patient was brought to the OR at [facility]. The patient had spinal anesthesia performed by the anesthesia personnel. Local arthroplasty block was performed throughout the procedure. The patient was placed in a supine position on operative table. Both feet were placed in boots for the Atlas table. The left hip was sterilely prepped and draped in a usual orthopedic fashion. A surgical pause was conducted to reconfirm the correct patient, site, side, and procedure to be performed. The perioperative antibiotics 2 grams of Ancef had been given within one hour prior to the procedure. After an appropriate surgical pause, we outlined an incision approximately 10 cm long, 2 cm lateral and 1 cm distal to the anterior-superior iliac spine, extending diagonally in line with the femoral shaft. Electrocautery was used to dissect through the subcutaneous tissue. The fascia overlying the TFL was incised in line with its fibers. The Franklin elevator was used to elevate the fascia from the TFL. A finger then was placed along the superior femoral neck, and the Rubia retractor was placed. A Meyerding retractor was used to retract the TFL laterally. A sharp Hohmann retractor was placed on the inferior femoral neck. Then using electrocautery and a Schnidt tonsil clamp, the ascending branch of the lateral circumflex artery was ligated. The investing fascia over the capsule was divided, and another Rubia retractor was placed inferior to the femoral neck. The pericapsular fat was then excised from around the anterior hip capsule. The anterior hip capsule was then incised with electrocautery starting at the edge of the acetabulum in line with the femoral neck extending to the intertrochanteric line, dividing the capsule at about a 135-degree angle. A No. 5 Ethibond suture was placed in the inferomedial flap of the capsule. The Rubia retractors were placed inside the capsule. A tania was made on the femoral neck in line with the planned femoral neck resection. The level of resection was checked with fluoroscopy, which was confirmed as being appropriate. The Cade soft tissue retractor was placed. A dual-cut saw was used to complete the femoral neck osteotomy. A spiral femoral hip screw was placed in the femoral head, and the femoral head was removed from the wound. We then placed the No. 1 retractor to the anterior aspect of the acetabulum. The posterior capsule was released superiorly, and the No. 2 retractor was placed posteriorly. This exposed the acetabulum. We then used electrocautery to excise the labrum and pulvinar. Osteophytes were removed. Fluoroscopy was utilized to obtain a perfect AP pelvis radiograph. We then started with a 48-mm reamer to ream medially, then expanding the socket, the last reamer was a 52-mm reamer. Once appropriate reaming and positioning of the cupwas determined with fluoroscopy, we then placed a real 52 DJO Empowr acetabular shell in approximately 40 degrees of abduction and 20 degrees of anteversion. There was an excellent press fit. Supplemental cancellous bone screws were placed. The real 36 inner diameter size I neutral e+ polyethylene acetabular liner was impacted into place without difficulty. We then turned our attention to the femoral component the femoral hook from the Atlas bed was placed around the vastus ridge. The leg was externally rotated. A Townsend retractor was placed medially, andthe leg was then extended and adducted, and the hook was elevated. The lateral capsule was then released off the femur, allowing for improved elevation of the femur. The femoral canal was then broachedsequentially to a size to Evolve Cemented stem. The broach was left in place, and a 44 mm offset neck with a 36-mm +0 head was placed. The hip was then reduced. X-rays showed appropriate leg length andoffset. The hip was found to have excellent soft tissue tension. The hip was moved through its rangeof motion. It was stable. We then elected to place these components. The hip was re-dislocated. The trial neck and head were removed. The femur was re-exposed and the broach was removed and the real size 2 Evolve Cemented 44 mm offset femoral stem was cemented into place in a standard fashion. A 36-mm+0 mm femoral head was retrialed with appropriate soft tissue tension. The real Biolox Delta Kuxsatm18 mm femoral head +0 mm neck was then impacted into place. The wound was thoroughly irrigated. The capsule was closed with No. 1 Vicryl interrupted sutures. The fascia over the TFL was closed with a running Quill suture. The subcutaneous tissues were then closed with 2-0 Monocryl. The skin was closedwith a running 2-0 Quill suture. A Prineo skin closure system was placed on the skin. The patient was awakened from anesthesia and taken to the PACU in stable condition. There were no immediate complications. Specimens None Drains None Estimated Blood Loss 700 mL Implants Implant Name Type Inv. Item Serial No. Patient Financial Advocate Lot No. LRB No. Used Action CMNT BN HI VISC PMMA 40 - [id number] Bone Cement CMNT BN HI VISC PMMA 40 [place] Left 1 Implanted CMNT BN HI VISC PMMA 40 - [id number] Bone Cement CMNT BN HI VISC PMMA 40 [place] Left 1 Implanted HIP RSTRC CMNT 24 - [id number] Hardware e.g. pins/screws/rods HIP RSTRC CMNT 24 [place] Left 1 Implanted cup Hip Implant [employer] [id number] Left 1 Implanted HIP SCRW EMP ACET 6.5X30 - [id number] Hardware e.g. pins/screws/rods HIP SCRW EMP ACET 6.5X30 [employer] [id number] Left 1 Implanted HIP SCRW EMP ACET 6.5X35 - [id number] Hardware e.g. pins/screws/rods HIP SCRW EMP ACET 6.5X35 [employer] [id number] Left 1 Implanted LNR EMP STD SZ 36F - [id number] Hip Implant LNR EMP STD SZ 36F [employer] [id number] Left 1 Implanted distal tip Hip Implant [employer] [id number] Left 1 Implanted stem Hip Implant [employer] [id number] Left 1 Implanted HIP HEAD DELTA CER 36MM, NEUT - [id number] Hip Implant HIP HEAD DELTA CER 36MM, NEUT Subarctic Limited [id number] Left 1 Implanted Ángel Apodaca M.D. SURER documented in this encounter Miscellaneous Notes Hospital Course - Steven Gupta M.D. - 09/12/2020 7:46 AM CST Surgery Information This Encounter Past Procedures (09/13/2019 to Today) Date Procedures Providers Location 09/11/2020 ARTHROPLASTY TOTAL HIP, DIRECT ANTERIOR. Ángel Apodaca M.D.Rames, Richard D, M.D.Lee, Dustin R, M.D. [facility] Yamileth Sheikh was taken to the operative room by Ángel Apodaca MD for the procedure listed above. The intraoperative as well as the immediate postoperative course were uncomplicated. For further details of the surgery please see the operative note. The patient was transferred from the PACU to the general care floor for continued observation and monitoring. She progressed in the usual post-operative fashion without complications. The patient was treated with perioperative IV antibiotics. She was given liquids by mouth and eventually advanced as toleratedtowards a more general diet. Her pain was well controlled with oral pain medications. Physical therapy / Occupational therapy was consulted for assistance with mobilization and gait training. She was mobilizing without difficulty and was compliant with any activity restrictions. Her incision remained intact with no concerns. Her bowel and bladder function were acceptable. She then met criteria for discharge and was later dismissed from the hospital. For any further details please see the most recentorthopedic surgery progress note and any other co-managing teams dated 09/12/2020. SURER documented in this encounter Plan of Treatment Upcoming Encounters Date Type Specialty Care Team Description 09/08/2022 Procedure visit Aesthetic Medicine and Juanita Vaz, Surgery BI REPORT DEVELOPER, C.N.P. [address] [place] [address] [phone] (Charlotte bentley) 09/08/2022 Comprehensive Visit Aesthetic Medicine Lucero Mckeon, Andreia Ma, Ph.D. [address] [place] [address] [phone] (Charlotte bentley) documented as of this encounter Procedures Procedure Name Priority Date/Time Associated Diagnosis Comme nts POCT NONINVASIVE Routine 09/12/2020 6:23 Results for HGB AM TREASURER this procedure are in the results section. CBC WITHOUT Routine 09/12/2020 4:32 Results for DIFFERENTIAL, B AM TREASURER this procedu re are in the results section. DX HIP LEFT 2-3 RAD - Routine 09/11/2020 Results for VIEWS (most inpatients 11:23 AM TREASURER this proced ure and all are in the outpatients) results section. FL FLUORO LESS THAN RAD - Routine 09/11/2020 Results for 1 HOUR (most inpatients 10:28 AM TREASURER this proced ure and all are in the outpatients) results section. ARTHROPLASTY TOTAL 09/11/2020 7:16 Primary HIP - DIRECT AM TREASURER Osteoarthritis Hip ANTERIOR Left documented in this encounter Results (ABNORMAL) Noninvasive HGB, POCT (09/12/2020 6:23 AM TREASURER) [facility] gist Method Time Signature Noninvasive HGB, 10.2 (A) 11.6 - POCT 15.0 g/dL Comment: left index Specimen (Source) Anatomical Collection Method Collection Time Re ceived Time Location / / Volume Laterality Skin 09/12/2020 6:23 AM TREASURER Sho Song APRN C.NAnaliPAnali LAB POCT ORDERABLES-MANUAL (ABNORMAL) CBC without Differential (09/12/2020 4:32 AM TREASURER) [facility] gist Method Time Signature Hemoglobin 8.8 (L) 11.6 - 09/12/2020 DTL 15.0 g/dL 5:28 AM TREASURER Hematocrit 26.7 (L) 35.5 - 09/12/2020 DTL 44.9 % 5:28 AM TREASURER Erythrocytes 2.84 (L) 3.92 - 09/12/2020 DTL 5.13 5:28 AM TREASURER x10(12)/L MCV 94.0 78.2 - 09/12/2020 DTL 97.9 fL 5:28 AM TREASURER RBC Distrib Width 12.5 12.2 - 09/12/2020 DTL 16.1 % 5:28 AM TREASURER Platelet Count 116 (L) 157 - 371 09/12/2020 DTL x10(9)/L 5:28 AM TREASURER Leukocytes 11.8 (H) 3.4 - 9.6 09/12/2020 DTL x10(9)/L 5:28 AM TREASURER Specimen Anatomical Collection Method Collection Time Receive d Time (Source) Location / / Volume Laterality Blood (Blood, 09/12/2020 4:32 AM 09/12/20 20 5:19 Venous) TREASURER AM TREASURER Pb Marshall M.D. LAB BLOOD ADD-ON Performing Organization Address City/State/ZIP Code Phon e Number [facility] - [address] [place], [place] [address] [facility] [place] [address] [facility] [address] DX Hip Left 2-3 Views (09/11/2020 11:23 AM TREASURER) Anatomical Region Laterality Modality Lower Extremity, Hip, Musculoskeletal RST LOS, Left Computed Radiography Musculoskeletal ARZ LOS, Muskuloskeletal FLA LOS Specimen (Source) Anatomical Collection Method Collection Time Re ceived Time Location / / Volume Laterality 09/11/2020 11:24 AM TREASURER Impressions 09/11/2020 11:24 AM TREASURER Postop left ALEKS. Right ALEKS. Sacral stimulator incompletely included. Narrative 09/11/2020 11:24 AM TREASURER EXAM: ??DX HIP LEFT 2-3 VIEWS Procedure Note Benito Brown M.D. - 09/11/2020For matting of this note might be different from the original. EXAM: DX HIP LEFT 2-3 VIEWS IMPRESSION: Postop left ALEKS. Right ALEKS. Sacral stimu lator incompletely included. Sho Song APRN, C.N.P. [facility] PRO CEDURES FL Fluoro Less Than 1 Hour (09/11/2020 10:28 AM TREASURER) Specimen (Source) Anatomical Location Collection Method / Collectio n Time Received Time / Laterality Volume Narrative [id number] - 09/11/2020 10:29 AM TREASURER This exam does not require a radiologist review or interpretation. Please refer to the patient's medical record on this date for clinical details. Maria Victoria Jain APRN FLUOROSCOPY PROCEDURES Performing Organization Address City/State/ZIP Code Phon e Number [id number] NA documented in this encounter Visit Diagnoses Diagnosis Difficulty Walking Orthopedic Hip Cause Primary Osteoarthritis Hip Left documented in this encounter Admitting Diagnoses Diagnosis Primary Osteoarthritis Hip Left documented in this encounter Administered Medications Inactive Administered Medications - up to 3 most recent administrations Medication Order MAR Action Action Date Dose Rate Site acetaminophen tablet 1,000 mg Given 09/11/2020 7:10 AM TREASURER 1,000 mg (TYLENOL) 1,000 mg, oral, Once, On Wed09/11/20 at 0700, For 1 dose, Pre-Op acetaminophen tablet 1,000 mg (TYLENOL) Given 09/12/2020 1:54 PM TREASURER 1,000 mg 1,000 mg, oral, Every 6 hours, First dose on Wed09/11/20 at 1400 Given 09/12/2020 8:05 AM TREASURER 1,000 mg Given 09/12/2020 3:00 AM TREASURER 1,000 mg aspirin chewable tablet 81 mg Given 09/12/2020 8:04 AM TREASURER 81 mg 81 mg, oral, 2 times daily, First dose on Wed09/11/20 at 2100 Given 09/11/2020 8:29 PM TREASURER 81 mg ceFAZolin in dextrose (iso-os) IVPB 2 New Bag 09/12/2020 12:14 AM TREASURER 2 g 200 mL/hr g (ANCEF) 2 g, intravenous, at 200 mL/hr, Administer over 30 Minutes, Every 8 hours, First dose on Wed09/11/20 at 1630, For 2 doses, Start within 8 hours of last IV dose. premix bag, Drug Monitoring Program: Pharmacist to adjust medication dosing based on indication and drug clearance factors., Indications: Prophylaxis, surgical New Bag 09/11/2020 4:40 PM TREASURER 2 g 200 mL/hr celecoxib capsule 200 mg (CeleBREX) Given 09/11/2020 7:11 AM TREASURER 200 mg 200 mg, oral, Once, On Wed09/11/20 at 0700, For 1 dose, Pre-Op celecoxib capsule 200 mg (CeleBREX) Given 09/12/2020 8:05 AM TREASURER 200 mg 200 mg, oral, Daily, First dose on Jessica 09/12/20 at 0900 dexmedeTOMIDine 4 mcg/mL Rate/Dose Change 09/11/2020 10:08 0.7 mcg/ kg/hr 11.4 mL/hr in NaCl 0.9% 100 mL AM TREASURER infusion (PRECEDEX) 0.1-1.5 mcg/kg/hr ? 65.5 kg Dosing weight (1.6375-24.5625 mL/hr, rounded to 1.63-24.56 mL/hr), intravenous, Continuous, Starting on Wed09/11/20 at 0645, Intra-Op, Premix ba mcg in 100 mL, Initiate at: Other, Rate: Per Provider, Titrate at: Other, Titrate: Per Provider, Goal: Other, Goal: Per Provider, Restriction Criteria (Pharmacy will review and approve if criteria met): INITIATED and MAINTAINED only in patients in the operating rooms or in the intensive care unit Rate/Dose Change 09/11/2020 9:40 AM TREASURER 0.8 mcg/kg/hr 13.1 mL/hr Rate/Dose Change 09/11/2020 9:06 AM TREASURER 1 mcg/kg/hr 16.3 mL/hr epinephrine 10 mcg/mL Given 09/11/2020 10:02 AM TREASURER 100 mL Left Upper Hip (1:100,000) in NaCl 0.9% soak solution (VIAL) 100 mL, other, Once in surgery, OR use only, Starting on Wed09/11/20 at 0641, For 1 dose, Intra-Op, *TO SOAK SPONGES* gentamicin powder 2.4 g (for Given 09/11/2020 10:03 AM TREASURER 2 via ls Left Upper Hip bone cement) 2.4 g (2 vial), miscellaneous, Once in surgery, OR use only, Starting on Wed09/11/20 at 0641, For 1 dose, Intra-Op, For bone cement - do not reconstitute. HYDROmorphone (PF) injection 0.2 mg Given 09/11/2020 10:49 PM CS T 0.2 mg (DILAUDID) 0.2 mg, intravenous, Every 1 hour PRN, moderate pain or score 4-6 of 10, severe pain or score 7-10 of 10, Starting on Wed09/11/20 at 2048 irbesartan tablet 150 mg (AVAPRO) Given 09/12/2020 8:05 AM TREASURER 150 mg 150 mg, oral, Every morning, First dose on Jessica 09/12/20 at 0900 lactated Ringer's bolus 500 mL New Bag 09/11/2020 7:25 AM TREASURER 500 mL 1000 mL/hr 500 mL, intravenous, at 1,000 mL/hr, Administer over 30 Minutes, Once, On Wed09/11/20 at 0700, For 1 dose, Pre-Op lactated Ringer's bolus 500 mL New Bag 09/12/2020 7:36 AM TREASURER 500 mL 500 mL/hr 500 mL, intravenous, at 500 mL/hr, Administer over 1 Hours, Once, On Jessica 09/12/20 at 0630, For 1 dose NaCl 0.9% infusion New Bag 09/12/2020 12:12 AM TREASURER 20 mL/hr 20 mL/hr 125 mL/hr, intravenous, Continuous, Starting on Wed09/11/20 at 1245, Discontinue fluids when patient is tolerating 500 ml of oral fluid Rate/Dose Verify 09/11/2020 7:30 PM TREASURER 125 mL/hr 125 mL/hr New Bag 09/11/2020 1:05 PM TREASURER 125 mL/hr 125 mL/hr omeprazole DR capsule 40 mg (PriLOSEC) Given 09/12/2020 6:29 AM TREASURER 40 mg 40 mg, oral, Daily before breakfast, First dose on Jessica 09/12/20 at 0700, Do NOT crush or chew. Capsule may be opened and the contents taken without crushing or chewing. oxyCODONE IR tablet 2.5 mg (ROXICODONE) 2.5 mg, oral, Every 4 hours PRN, moderat e pain or score 4-6 of 10, Starting on Wed09/11/20 at 1243, Second line therapy oxyCODONE IR tablet 5 mg (ROXICODONE) 5 mg, oral, Every 4 hours PRN, severe pain or score 7- 10 of 10, Starting on Wed09/11/20 at 1243, Second line therapy. If patient is greater than 7 after 2 hours, call service for new order. povidone iodine 0.25% in NaCl Given 09/11/2020 10:19 AM 1,000 mL Left Upper Hip 0.9% irrigation solution TREASURER irrigation, Once in surgery, OR use only, Starting on Wed09/11/20 at 0641, For 1 dose, Intra-Op, IRRIGATION USE ONLY ropivacaine (PF) 100 mg, Given 09/11/2020 10:25 AM TREASURER 60 mL Left Upper Hip EPINEPHrine 50 mcg, ketorolac 15 mg in NaCl 0.9% 60 mL injection (ARTHROPLASTY BLOCK 50-74.9 kg) 60 mL, infiltration, Once in surgery, OR use only, Starting on Wed09/11/20 at 0641, For 1 dose, Intra-Op, *Not for IV use* ropivacaine (PF) 100 mg, Given 09/11/2020 10:25 AM TREASURER 60 mL Left Upper Hip EPINEPHrine 50 mcg, ketorolac 15 mg in NaCl 0.9% 60 mL injection (ARTHROPLASTY BLOCK 50-74.9 kg) 60 mL, infiltration, Once in surgery, OR use only, Starting on Wed09/11/20 at 0641, For 1 dose, Intra-Op, *Not for IV use* rosuvastatin tablet 5 mg (CRESTOR) Given 09/12/2020 8:04 AM TREASURER 5 mg 5 mg, oral, Every morning, First dose on Jessica 09/12/20 at 0900 scopolamine base 1 mg Medication Applied 09/11/2020 7:12 AM 1 patch Behind Right over 3 days 1 patch TREASURER Ear (TRANSDERM SCOP) 1 patch, transdermal, Administer over 24 Hours, Once as needed, Based on clinical assessment of mental status and history of PONV, Starting on Wed09/11/20 at 0655, For 1 dose, Pre-Op, Contains 1.5 mg to deliver 1 mg/72 hours. sennosides-docusate sodium 8.6-50 mg per Given 09/12/2020 8:04 A M TREASURER 1 tablet tablet 1 tablet (SENOKOT-S) 1 tablet, oral, 2 times daily, First dose on Wed09/11/20 at 2100, Do not give if patient has diarrhea. Given 09/11/2020 8:29 PM TREASURER 1 tablet documented in this encounter Active and Recently Administered Medications Times are shown in TREASURER. Scheduled Medication Order 09/10/2020 09/11/2020 09/12/2020 acetaminophen tablet 1,000 mg (TYLENOL) (COMPLETED) 0710 (Given - Provider: Yudelka Craig RJono) 1,000 mg, oral, Once, On Wed09/11/20 at 0700, For 1 dose, Pre-Op acetaminophen tablet 1,000 mg (TYLENOL) 1515 (Given - Provider: Lesley Ortez RJono - Comment: pt nauseated)2027 (Given - Provider: Tiff Goodman R.N.) 0300 (Given - Provider: Tiff de la cruz RAnaliNAnali)0805 (Given - Provider: Kymberly Knight RJono)1354 (Given - Provider: Kymberly Knight R.N.) 1,000 mg, oral, Every 6 hours, First dose on Wed09/11/20 at 1400 aspirin chewable tablet 81 mg 2028 (Give n - Provider: Tiff Goodman R.N.) 0804 (Given - Provider: Kymberly raphael R.NAnali) 81 mg, oral, 2 times daily, First dose on Wed09/11/20 at 2100 ceFAZolin in dextrose (iso-os) IVPB 2 g (ANCEF) (COMPLETED) 1640 (New Bag - Provider: Lesley Ortez R.N.) 0014 (New Bag - Provider: Latanya Carrizales R.N.) 2 g, intravenous, at 200 mL/hr, Administ er over 30 Minutes, Every 8 hours, First dose on Wed09/11/20 at 1630, For 2 doses, Start within 8 hours of last IV dose. premix bag, Drug Monitoring Program: Charles suarez to adjust medication dosing based on indication and drug clearance factors., Indications: Prophylaxis, surgical ceFAZolin injection 2,000 mg (ANCEF) (COMPLETED) 845 (Given - Provider: Levy Mosley APRN, DEPARTMENT SALES MANAGER) 2,000 mg (rounded from 1,692.5 mg = 25 m g/kg ? 67.7 kg Dosing weight), intravenous, Once, Wed09/11/20 at 0645, For 1 dose, Intra-Op, Preoperatively within 1 hour prior to surgical incision If needed, r econstitute vial per package insert inst ructions. See IVAG for administration guidelines. , Drug Monitoring Program: Pharmacist to adjust medication dosing based on indication and drug clearance factors., Indications: Prophylaxis, surgical celecoxib capsule 200 mg (CeleBREX) (COMPLETED) 710 (Given - Provider: Yudelka Craig R.N.) 200 mg, oral, Once, On Wed09/11/20 at 0700, For 1 dose, Pre-Op celecoxib capsule 200 mg (CeleBREX) 08 (Given - Provider: Kymberly Knight R.N.) 200 mg, oral, Daily, First dose on Wed09/12/20 at 0900 irbesartan tablet 150 mg (AVAPRO) 08 (Given - Provider: Kymberly Knight R.N.) 150 mg, oral, Every morning, First dose on Wed09/12/20 at 0900 lactated Ringer's bolus 500 mL (COMPLETED) 724 (New Bag - Provider: Yudelka Craig R.N.) 500 mL, intravenous, at 1,000 mL/hr, Adm inister over 30 Minutes, Once, On Wed09/11/20 at 0700, For 1 dose, Pre-Op lactated Ringer's bolus 500 mL (COMPLETED) 735 (New Bag - Provider: Kymberly Knight R.N. - Comment: Shift change) 500 mL, intravenous, at 500 mL/hr, Admin ister over 1 Hours, Once, On Wed09/12/20 at 0630, For [address] capsule 40 mg (PriLOSEC) 06 (Given - Provider: Tiff Goodman R.N.) 40 mg, oral, Daily before breakfast, Fir st dose on Wed09/12/20 at 0700, Do NOT crush or chew. Capsule may be opened and the contents taken without crushing or chewing. rosuvastatin tablet 5 mg (CRESTOR) 803 (Given - Provider: Kymberly Knight R.N.) 5 mg, oral, Every morning, First dose on Wed09/12/20 at 0900 sennosides-docusate sodium 8.6-50 mg per tablet 1 tablet (SE NOKOT-S) 2028 (Given - Provider: Tiff Goodman R.N.) 803 (Given - Provider: Kymberly Knight R.N.) 1 tablet, oral, 2 times daily, First dos e on Wed09/11/20 at 2100, Do not give if patient has diarrhea. tranexamic acid in NaCl IVPB 1,000 mg (CYKLOKAPRON) (COMPLET ED) 0831 (Given - Provider: Levy Mosley APRN, PATEL) 1,000 mg (1 g), intravenous, at 300 mL/h r, Administer over 20 Minutes, Once, Wed09/11/20 at 0645, For 1 dose, Intra-Op, Administer in OR upon induction premix bag tranexamic acid in NaCl IVPB 1,000 mg (CYKLOKAPRON) (COMPLET ED) 1029 (Given - Provider: Levy Mosley APRN, PATEL) 1,000 mg (1 g), intravenous, at 300 mL/h r, Administer over 20 Minutes, Once, Wed09/11/20 at 0645, For 1 dose, Intra-Op, Administer in OR just before dropping tourniquet premix bag Continuous Medication Order 09/10/2020 09/11/2020 09/12/2020 dexmedeTOMIDine 4 mcg/mL in NaCl 0.9% 100 mL infusion (PRECE DEX) 0755 (New Bag - Provider: Levy Mosley APRN, PATEL)0823 (Rate/Dose Change - Provider: Levy Mosley APRN, PATEL)0836 (Rate/Dose Change - Provider: Levy Mosley APRN, PATEL)0843 (Rate/Dose Change - Provider: Levy Mosley APRN, PATEL) 0.1-1.5 mcg/kg/hr ? 65.5 kg Dosing weight (1.6375-24.5625 mL/hr, rounded to 1.63-24.56 mL/hr), intravenous, Continuous, Starting on Wed09/11/20 at 0645, Intra-Op, Premix ba mcg in 100 mL, Initiat 0849 (Rate/Dose Change - Pr ovider: Levy Mosley APRN, PATEL)0906 (Rate/Dose Change - Provider: Levy Mosley APRN, PATEL)0940 (Rate/Dose Change - Provider: Jerry Garcia APRN, PATEL)1008 (Rate/Dose Change - Provider: Levy Mosley APRN, PATEL) e at: Other, Rate: Per Provider, Titrate at: Other, Titrate: Per Provider, Goal: Other, Goal: Per Provider, Restriction Criteria (Pharmacy will review and approve if criteria met): INITIATED and MAINTAI 1024 ( Stopped - Provider: Levy Mosley APRN, PATEL) GAGANDEEP only in patients in the operating rooms or in the intensive care unit lactated ringers 1309 (Stopped - Provider: Brett Ortez RAnaliNAnali) 20 mL/hr, intravenous, at 20 mL/hr, Cont inuous, Starting Wed09/11/20 at 1100, PACU & Post-Op NaCl 0.9% infusion 1305 (New Bag - Prov ider: Lesley Ortez RAnaliNAnali)1930 (Rate/Dose Verify - Provider: Tiff Goodman R.N.) 0012 (New Bag - Provider: Latanya Carrizales RAanliNAnali)0740 (Stopped - Provider: Kymberly Knight RAnaliNAnali) 125 mL/hr, intravenous, Continuous, Star ting on Wed09/11/20 at 1245, Discontinue fluids when patient is tolerating 500 ml of oral fluid PRN Medication Order 09/10/2020 09/11/2020 09/12/2020 calcium carbonate chewable tablet 400 mg of calcium (TUMS) 400 mg of calcium, oral, Every 2 hour NV N, indigestion, Starting Wed09/11/20 at 1243, Doses listed are in mg of elemental calcium. Take with food. 500 mg calcium carbonate contains 200 mg of elemental calcium. epinephrine 10 mcg/mL (1:100,000) in NaCl 0.9% soak so lution (VIAL) (COMPLETED) 1002 (Given - Provider: Ángel Apodaca M.D.) 100 mL, other, Once in surgery, OR use o nly, Starting on Wed09/11/20 at 0641, For 1 dose, Intra-Op, *TO SOAK SPONGES* gentamicin powder 2.4 g (for bone cement) (COMPLETED) 1003 (Given - Provider: Ángel Apodaca M.D.) 2.4 g (2 vial), miscellaneous, Once in s urgery, OR use only, Starting on Wed09/11/20 at 0641, For 1 dose, Intra-Op, For bone cement - do not reconstitute. haloperidol lactate injection 1 mg (HALDOL) 1 mg, intravenous, Every 6 hours PRN, na usea, vomiting, Starting Wed09/11/20 at 1243, For 48 hours, Total of 3 doses in 24 hour period. RASS must be -2 or higher to administer. Reassess for nausea or vo miting after at least 10 minutes. If juana sea or vomiting persists administer next ordered antiemetic medications (order for antiemetic medication administration ondansetron then haloperidol then promethazine) HYDROmorphone (PF) injection 0.2 mg (DILAUDID) 2248 (Given - Provider: Tiff Goodman R.N.) 0.2 mg, intravenous, Every 1 hour PRN, m oderate pain or score 4-6 of 10, severe pain or score 7-10 of 10, Starting on Wed09/11/20 at 2048 loratadine tablet 10 mg (CLARITIN) 10 mg, oral, Daily PRN, allergies, for o pioid induced pruritus, Starting Wed09/11/20 at 1243, Drug Monitoring Program: Pharmacist to adjust medication dosing based on indication and drug clearance factors. naloxone injection 0.2 mg (NARCAN) 0.2 mg, intravenous, As needed, respirat ory depression, Starting Wed09/11/20 at 1243, For RASS Score -4 or less, respiratory rate of less than 8 breaths/min. Notify provider/service and rapid response team (if available at institution). ondansetron (PF) injection 4 mg (ZOFRAN) 4 mg, intravenous, Every 6 hours PRN, na usea, vomiting, Starting Wed09/11/20 at 1243, For 48 hours, Reassess for nausea or vomiting after at least 10 minutes. If nausea or vomiting persists administer n ext ordered antiemetic medications (orde r for antiemetic medication administration ondansetron then droperidol then promethazine). oxyCODONE IR tablet 2.5 mg (ROXICODONE)(Linked Group 1) 2.5 mg, oral, Every 4 hours PRN, moderat e pain or score 4-6 of 10, Starting on Wed09/11/20 at 1243, Second line therapy oxyCODONE IR tablet 5 mg (ROXICODONE)(Linked Group 1) 5 mg, oral, Every 4 hours PRN, severe pa in or score 7-10 of 10, Starting on 09/11/20 at 1243, Second line therapy. If patient is greater than 7 after 2 hours, call service for new order. povidone iodine 0.25% in NaCl 0.9% irrigation solution (COMP LETED) 1019 (Given - Provider: Pb Marshall M.D.) irrigation, Once in surgery, OR use only , Starting on Wed09/11/20 at 0641, For 1 dose, Intra-Op, IRRIGATION USE ONLY promethazine injection 6.25 mg (PHENERGAN) 6.25 mg, intravenous, Every 6 hours PRN, nausea, vomiting, Starting Wed09/11/20 at 1243, For 48 hours, RASS must be -2 or higher to administer. Reassess for nausea/vomiting after at least 10 minutes. If nausea or vomiting persists administer next ordered antiemetic medications (order for antiemetic medication administration ondansetron then droperidol then promethazine). ropivacaine (PF) 100 mg, EPINEPHrine 50 mcg, ketorolac 15 mg in NaCl 0.9% 60 mL injection (ARTHROPLASTY BLOCK 50-74.9 kg) (COMPLETED) 1025 (Given - Provider: Pb Marshall M.D.) 60 mL, infiltration, Once in surgery, OR use only, Starting on Wed09/11/20 at 0641, For 1 dose, Intra-Op, *Not for IV use* ropivacaine (PF) 100 mg, EPINEPHrine 50 mcg, ketorolac 15 mg in NaCl 0.9% 60 mL injection (ARTHROPLASTY BLOCK 50-74.9 kg) (COMPLETED) 1025 (Given - Provider: Pb Marshall M.D.) 60 mL, infiltration, Once in surgery, OR use only, Starting on Wed09/11/20 at 0641, For 1 dose, Intra-Op, *Not for IV use* scopolamine base 1 mg over 3 days 1 patch (TRANSDERM SCOP) ( COMPLETED) 0712 (Medication Applied - Provider: Yudelka Craig R.N.) 0830 (Medication Removed - Provider: Kymberly Knight R.N.) 1 patch, transdermal, Administer over 24 Hours, Once as needed, Based on clinical assessment of mental status and history of PONV, Starting on Wed09/11/20 at 0655, For 1 dose, Pre-Op, Contains 1.5 mg to deliver 1 mg/72 hours. Linked Groups Order Group 1: oxyCODONE IR tablet 2.5 mg (ROXICODONE)Jump to med 2.5 mg, oral, Every 4 hours PRN, moderat e pain or score 4-6 of 10, Starting on Wed09/11/20 at 1243
Second line therapy
Or oxyCODONE IR tablet 5 mg (ROXICODONE)Jump to med 5 mg, oral, Every 4 hours PRN, severe pa in or score 7-10 of 10, Starting on Wed09/11/20 at 1243
Second line therapy. If patient is greater than 7 after 2 hours, call service for new order.
documented in this encounter Care Teams Automobile Travel Club Counselor Relationship Specialty Start Date End Date Elsewhere, Pcp PCP - General Internal Medicine 07/03/17 documented as of this encounter
--- OUTSIDE RECORDS SUMMARY | 2022-07-30 19:54 | XMS_ITS | Encounter Summary ---
:1945 Author Organization [facility] Address [address] [place] [address] Care Team Providers Name Role Phone Elsewhere, Pcp Primary Care Provider Unavailable Reason for Referral Outpatient (Routine) - Closed Specialty Diagnoses / Procedures Referred By Contact Refer red To Contact Diagnoses Varicose Vein Lower Extremity With Pain Bilateral Venous Insufficiency Chronic Peripheral Juanita Vaz APRN, [place] [facility] Procedures US Lower Extremity Venous Insufficiency Bilateral C.N.P. [address] [place] [phone] Referral ID Status Reason Start Date Expiration Date Visits Requ ested Visits Authorized [id number] Closed 06/24/2020 06/24/2021 1 1 Reason for Visit Outpatient (Routine) - Closed Specialty Diagnoses / Procedures Referred By Contact Refer red To Contact Diagnoses Varicose Vein Lower Extremity With Pain Bilateral Venous Insufficiency Chronic Peripheral Juanita Vaz APRN, [place] [facility] on Procedures US Lower Extremity Venous Insufficiency Bilateral C.N.P. [address] [place] [phone] Referral ID Status Reason Start Date Expiration Date Visits Requ ested Visits Authorized [id number] Closed 06/24/2020 06/24/2021 1 1 Encounter Details Date Type Department Care Team Description 07/31/2020 Hospital Encounter Department of Juanita Vaz Varico se Vein Lower Extremity With Pain Bilateral ; Radiology, Marino Malone APRN, C.N.P. Venous Insufficiency Chronic Peripheral; Building, [facility]ose Vein Lower Extremity With Pain Bilateral [facility] [phone] 200 [facility] [phone] [place], [place] (Work) [phone] Social History Tobacco Use Types Packs/Day Years [...] More than 4 times per year 01/28/2021 quaker services? Do you belong to any clubs [...] have completed or the highest Armando, MEd, RADIO INTERFERENCE TROUBLE SHOOTER, ALL) degree you have received? Sex Assigned [...] visit Aesthetic Medicine and Juanita Vaz, Surgery PUBLIC AFFAIRS SPECIALIST, C.N.P. [address] [place] [phone] (Charlotte bentley) 09/08/2022 Comprehensive Visit Aesthetic Medicine Lucero Mckeon, Surgery M.DAnali, Ph.D. [address] [place] [phone] (Charlotte bentley) documented as of this encounter Procedures Procedure Name Priority Date/Time Associated Comments Diagnosis US LOWER EXTREMITY RAD - Routine 07/31/2020 2:48 Varicose Vein Lowe r Results for VENOUS INSUFFICIENCY (most inpatients PM CDT Extremity With P ain this procedure BILATERAL and all Bilateral are in the outpatients) Venous results Insufficiency section. Chronic Peripheral documented in this encounter Results US Lower Extremity Venous Insufficiency Bilateral (07/31/2020 2:48 PM CDT) Anatomical Region Laterality Modality Lower Extremity, Ultrasound RST LOS, Ultrasound ARZ LOS, Santosh ateral Ultrasound Ultrasound FLA LOS, Procedural Specimen (Source) Anatomical Collection Method Collection Time Re ceived Time Location / / Volume Laterality 07/31/2020 2:53 PM CDT Impressions 07/31/2020 3:01 PM CDT Superficial venous incompetence as described in detail in the full report. Narrative 07/31/2020 3:01 PM CDT EXAM: ??US LOWER EXTREMITY VENOUS INSUFFICIENCY BILATERAL Exam performed with color and spectral D oppler analysis. COMPARISON: ??12/01/2018 FINDINGS: RIGHT: No evidence of deep venous thromb osis or deep venous insufficiency. The right great saphenous vein is severely i ncompetent in the calf. The small saphenous vein is severely incompetent i n the calf. Varicosities arise from the small saphenous vein. ??There is an inco mpetent perforating vein arising in the popliteal fossa and giving rise to varic osities in the calf. LEFT: No deep venous thrombosis or insuf ficiency. The left great saphenous vein is been ablated. There is an anterior ac cessory great saphenous vein which is incompetent and appears to extend into t he pelvis. Incompetence of the left small saphenous vein. Incompetence of th e remaining left great saphenous vein in the lower calf. DVT SCREENING RIGHT: ??Negative LEFT: ??Negative Exam was performed with the patient chio park and the leg being evaluated in a non weight-bearing position. Right CFV: Competent. Right FV: Competent. Right Pop: Competent. Right SFJ: Competent. Right AASV: Competent. Right GSV Upper: Competent. Right GSV Knee: Competent. Right GSV Calf : Severe Incompetence. 6. 0 s Right SPJ: Absent. Right SSV Calf: Severe Incompetence. Right SFJ: 6.8 mm Right AASV: 4.5 mm Right GSV Upper: 4.0 mm Right GSV Knee: 3.6 mm Right SPJ: Right SSV: 3.4 mm Left ??CFV: Competent. Left ??FV: Competent. Left ??Pop: Competent. Left ??SFJ: Competent. Left AASV: Severe Incompetence. 6.8 s Left ??GSV Upper: Absent. Left ??GSV Knee: Absent. Left ??GSV Calf: Severe Incompetence. 6. 1 s Left ??SPJ: Absent. Left ??SSV Calf: Mild incompetence. 0.9 s Left SFJ: Left AASV: 3.3 mm Left GSV Upper: Left GSV Knee: Left SPJ: Left SSV: 2.3 mm Absent= A Not Imaged= x Mild = 0.5 to 1 second Moderate= 1 to 3 seconds Severe = > 3 seconds * For the femoral and popliteal veins, s ignificant reflux is greater than 1 second. May upgrade or downgrade depending on amplitude of reflux. Procedure Note Emiliano Miramontes M.D. - 07/31/2020Formatti ng of this note might be different from the original. EXAM: US LOWER EXTREMITY VENOUS INSUFFIC IENCY BILATERAL Exam performed with color and spectral D oppler analysis. COMPARISON: 12/01/2018 FINDINGS: RIGHT: No evidence of deep venous thromb osis or deep venous insufficiency. The right great saphenous vein is severely i ncompetent in the calf. The small saphenous vein is severely incompetent i n the calf. Varicosities arise from the small saphenous vein. There is an incomp etent perforating vein arising in the popliteal fossa and giving rise to varic osities in the calf. LEFT: No deep venous thrombosis or insuf ficiency. The left great saphenous vein is been ablated. There is an anterior ac cessory great saphenous vein which is incompetent and appears to extend into t he pelvis. Incompetence of the left small saphenous vein. Incompetence of th e remaining left great saphenous vein in the lower calf. DVT SCREENING RIGHT: Negative LEFT: Negative Exam was performed with the patient chio ding and the leg being evaluated in a non weight-bearing position. Right CFV: Competent. Right FV: Competent. Right Pop: Competent. Right SFJ: Competent. Right AASV: Competent. Right GSV Upper: Competent. Right GSV Knee: Competent. Right GSV Calf : Severe Incompetence. 6. 0 s Right SPJ: Absent. Right SSV Calf: Severe Incompetence. Right SFJ: 6.8 mm Right AASV: 4.5 mm Right GSV Upper: 4.0 mm Right GSV Knee: 3.6 mm Right SPJ: Right SSV: 3.4 mm Left CFV: Competent. Left FV: Competent. Left Pop: Competent. Left SFJ: Competent. Left AASV: Severe Incompetence. 6.8 s Left GSV Upper: Absent. Left GSV Knee: Absent. Left GSV Calf: Severe Incompetence. 6.1 s Left SPJ: Absent. Left SSV Calf: Mild incompetence. 0.9 s Left SFJ: Left AASV: 3.3 mm Left GSV Upper: Left GSV Knee: Left SPJ: Left SSV: 2.3 mm Absent= A Not Imaged= x Mild = 0.5 to 1 second Moderate= 1 to 3 seconds Severe = > 3 seconds * For the femoral and popliteal veins, s ignificant reflux is greater than 1 second. May upgrade or downgrade depending on amplitude of reflux. IMPRESSION: Superficial venous incompetence as descr ibed in detail in the full report. Juanita Vaz APRN, C.N.P. IMG US PROCEDURES documented in this encounter Visit Diagnoses Diagnosis Varicose Vein Lower Extremity With Pain Bilateral Venous Insufficiency Chronic Peripheral documented in this encounter Care Teams Insole Cementer Relationship Specialty Start Date End Date Elsewhere, Pcp PCP - General Internal Medicine 07/03/17 documented as of this encounter
--- OUTSIDE RECORDS SUMMARY | 2022-07-30 19:54 | XMS_ITS | Encounter Summary ---
:1945 Author Organization [facility] Address [address] [place] [phone] Care Team Providers Name Role Phone Elsewhere, Pcp Primary Care Provider Unavailable Reason for Referral Outpatient (Routine) - Closed Specialty Diagnoses / Procedures Referred By Contact Refer red To Contact Vascular Surgery Michele Mello M.D. [facility] [address] [place] [phone] Referral ID Status Reason Start Date Expiration Date Visits Requ ested Visits Authorized [id number] Closed 08/15/2020 08/15/2021 1 1 Scheduling Instructions Vein patient. Put in vein slot FLOORING SPECIALIST Encounter Details Date Type Department Care Team Description 08/15/2020 Orders Only Division of Vascular and Jose Gonzalez, Endovascular Surgery in [place], [place] [address] [place] [address] [place] [phone] Social History Tobacco Use Types Packs/Day Years [...] or relatives? How often do you attend presybeterian or More than 4 times per year 01/28/2021 congregational services? Do you belong to any clubs or Yes 01/28/2021 organizations such as presybeterian groups, unions, [employer] or athletic groups, or school groups? How [...] have completed or the highest Armando, MEd, SENSORY SCIENTIST, ALL) degree you have received? Sex Assigned at Date Recorded Female 07/26/2020 9:06 PM CDT documented as of this encounter Plan of Treatment Upcoming Encounters Date Type Specialty Care Team Description 09/08/2022 Procedure visit Aesthetic Medicine and Juanita Vaz, Surgery MACHINE SHOP WORKER, C.N.P. [address] [place] [phone] ( rk) 09/08/2022 Comprehensive Visit Aesthetic Medicine Lucero Mckeon, Surgery M.D., Ph.D. [address] [place] [phone] ( rk) Scheduled Referrals Name Type Priority Associated Diagnoses Order S chedule Vascular Surgery Outpatient Referral Routine Expe cted: office visit 12/13/2020 (clinic) (Approximate), Expires: 08/15/2023 documented as of this encounter Visit Diagnoses Not on filedocumented in this encounter Care Teams Mortar Carrier Relationship Specialty Start Date End Date Elsewhere, Pcp PCP - General Internal Medicine 07/03/17 documented as of this encounter
--- OUTSIDE RECORDS SUMMARY | 2022-07-30 19:54 | XMS_ITS | Encounter Summary ---
:1945 Author Organization [facility] Address [address] [place] [address] Care Team Providers Name Role Phone Elsewhere, Pcp Primary Care Provider Unavailable Encounter Details Date Type Department Care Team Description 07/31/2020 Clinical Communication Department of Ángel Apodaca Orthopedic Surgery javier Moe M.D. [place], [place] [address] [facility] [address] [place] [phone] Social History Tobacco Use Types Packs/Day Years [...] or relatives? How often do you attend moravian or More than 4 times per year 01/28/2021 yazidi services? Do you belong to any clubs or Yes 01/28/2021 organizations such as moravian groups, unions, fraternal or athletic groups, or [...] have completed or the highest Armando, MEd, MEDICAL TECHNOLOGIST BLOOD BANK, ALL) degree you have received? Sex Assigned at Date Recorded Female 07/26/2020 9:06 PM CDT documented as of this encounter Miscellaneous Notes Telephone Encounter - Sho Song APRN, C.N.P. - 07/31/2020 9:30 AM CDT Please change preop to reflect the surgery date now on 09/11 Telephone Encounter - Kendra Clarke - 07/31/2020 9:09 AM CDT Pt changed her mind and would like to see if the 09/11/20 surgical date if it is still available Thank you, Justine documented in this encounter Plan of Treatment Upcoming Encounters Date Type Specialty Care Team Description 09/08/2022 Procedure visit Aesthetic Medicine and Juanita Vaz, Surgery CLAUDIA, C.N.P. [address] [place] [phone] (Charlotte rk) 09/08/2022 Comprehensive Visit Aesthetic Medicine and Lucero Pritchard, Surgery M.DAnali, Ph.D. [address] [place] [phone] (Wo rk) documented as of this encounter Visit Diagnoses Not on filedocumented in this encounter Care Teams Take Up Supervisor Relationship Specialty Start Date End Date Elsewhere, Pcp PCP - General Internal Medicine 07/03/17 documented as of this encounter
--- OUTSIDE RECORDS SUMMARY | 2022-07-30 19:54 | XMS_ITS | Encounter Summary ---
:1945 Author Organization [facility] Address [address] [place] [address] Care Team Providers Name Role Phone Elsewhere, Pcp Primary Care Provider Unavailable Reason for Visit Reason Comments discharge planning Encounter Details Date Type Department Care Team Description 09/09/2020 Clinical Department of [facility], discharge plan iker Communication Orthopedic Surgery Parul Almonte in [facility] [phone] [facility] (Work) [place] [phone] Social History Tobacco Use Types Packs/Day Years [...] or relatives? How often do you attend orthodox or More than 4 times per year 01/28/2021 yazidi services? Do you belong to any clubs or Yes 01/28/2021 organizations such as orthodox groups, unions, fraternal or athletic groups, or [...] have completed or the highest Armando, MEd, VENEER MANUFACTURER, ALL) degree you have received? Sex Assigned at Date Recorded Female 07/26/2020 9:06 PM CDT documented as of this encounter Miscellaneous Notes Telephone Encounter - Parul Vazquez L.P.N. - 09/09/2020 9:46 AM PROCESS TANK TENDER Phone call concerning dismissal plans after Yamileth Ramona Kori's scheduled Left ALEKS on 09-11-[address] Apodaca. Spoke with the patient. The patient plans on staying at their caregiver's home. The role of caregiver and non emergency services ambulance driver will be filled by the patient's adult child, Adi and [id number], Lesley. Patient will stay at [facility] until well enough to go to [place] to stay witha friend. The primary caregiver will share caregiver responsibilities around a work schedule. The home is multi-level, but the patient can remain on one level until they are comfortable with thestairs. The patient has crutches and instructions were given to bring them with to the hospital. The patient does not use a CPAP machine. The patient verbalized they did not take any anticoagulant, antiplatelet, or anti-rheumatic medication. Questions answered. The following information was provided: post-op need for caregiver and ambulatory device. The phone call recipient was able to teach back; they addressed and discussed concerns. The following references were used: nursing clinical judgement. ESS TANK TENDER documented in this encounter Plan of Treatment Upcoming Encounters Date Type Specialty Care Team Description 09/08/2022 Procedure visit Aesthetic Medicine and Juanita Vaz, Surgery MINCING MACHINE OPERATOR, C.N.P. [address] [place] [phone] (Charlotte bentley) 09/08/2022 Comprehensive Visit Aesthetic Medicine and Lucero Pritchard, Surgery M.DAnali, Ph.D. 200 [place] [phone] (Charlotte bentley) documented as of this encounter Visit Diagnoses Not on filedocumented in this encounter Care Teams Special Investigation Unit Investigator Relationship Specialty Start Date End Date Elsewhere, Pcp PCP - General Internal Medicine 07/03/17 documented as of this encounter
--- OUTSIDE RECORDS SUMMARY | 2022-07-30 19:54 | XMS_ITS | Encounter Summary ---
:1945 Author Organization [facility] Address [address] [place] [address] Care Team Providers Name Role Phone Elsewhere, Pcp Primary Care Provider Unavailable Encounter Details Date Type Department Care Team Description 09/11/2020 Anesthesia Event [facility] MAIN OR Pelon Manjarrez D.O. [address] [place] [address] [address] [facility] [place] [phone] Anesthesia Record Procedure Summary Procedure Name Responsible Anesthesia Start Anesthesia Stop Anesthesiologist Time Time ARTHROPLASTY TOTAL Pelon Manjarrez D.OAnali 09/11/20 0747 1206/23 1120 HIP, DIRECT ANTERIOR. (Left: Hip) Events Date Time Event Comment 09/11/2020 0746 In Room 0747 An Start Machine/Equipmen t Checked Infection Precautions Foll owed Procedure/Site Verified NPO Sta tus Verified Supine Standard ASA Mon itors Applied 0758 Anesthesia Time Out 0800 Block Start 0807 Block End 0812 Turnover to Proceduralist 0838 0849 Proc Start 1056 Proc Fin 1106 Turnover to ANE Staff 1107 an stop data 1109 Out of Room 1120 An End I completed my h andoff to the receiving staff during [facility] [employer] [facility] we 1. Identified the patient 2. Ident ified the responsible provider 3. Revi ewed the pertinent medical history 4. Discu ssed the surgical course 5. Reviewed intra-o p anesthesia management and issues during an esthesia 6. Set expectations for post-procedure period 7. Allowed opportun ity for questions and acknowledgement of understanding. Name Total midazolam 1 mg/mL injection 3.5 mg fentaNYL PF injection 50 mcg/mL 150 mcg ceFAZolin injection 2,000 mg (ANCEF) 2 g dexmedeTOMIDine 4 mcg/mL in NaCl 0.9% 100 mL infusion (PRECEDEX) 143.55 mcg tranexamic acid in NaCl IVPB 1,000 mg (CYKLOKAPRON) 1 g tranexamic acid in NaCl IVPB 1,000 mg (CYKLOKAPRON) 1 g dexamethasone 4 mg/mL injection 8 mg glycopyrrolate 0.2 mg/mL injection 0.4 mg ondansetron PF 4 mg/2 mL injection 4 mg bupivacaine PF 0.5% injection 2.2 mL labetalol 5 mg/mL injection 30 mg hydrALAZINE 20 mg/mL injection 10 mg ePHEDrine PF 5 mg/mL syringe injection 30 mg phenylephrine 100 mcg/mL injection 300 mcg phenylephrine 20 mg/250 mL infusion 0.37 mg Lactated Ringers Free Drip 1,600 mL albumin human bottle 5% 1,000 mL Agents No agents on file. Blood No blood administrations on file. Lines, Drains, and Airways Type Details Placement Removal (RETIRED) Incision 09/11/20; 06; Hip; 09/11/20616 by 1 1418 by Left; Jaylen manzo Alison M, [facility] ic-Background mastisol; 06/24/21 R.N. , Scheduling Automated (Removed by background Batch Job completion utility); 1418 (Removed by background completion utility) Peripheral IV Placement Date: 09/11/20724 by 09/12/20 1340 b y 09/11/20; Placement Eugene Robbins Clarissa J, Time: 724; Catheter Krishna Jha R.N. Size: 18 G; Orientation: Anterior, Right; Site Prep: Alcohol; Technique: Anatomical landmarks; Inserted by: Gisselle BYERS; Insertion Attempts: 1; Removal Date: 09/12/20; Removal Time: 1340; Removal Reason: Patient discharged documented in this encounter Social History Tobacco [...] have completed or the highest Armando, MEd, COMMUNICATIONS PROFESSIONAL, ALL) degree you have received? Sex Assigned at Date Recorded Female 07/26/2020 9:06 PM CDT documented as of this encounter OR Notes Anesthesia Postprocedure Evaluation - Vinny Garay D.O. - 09/11/2020 1:00 PM CST Patient: Yamileth Sheikh Procedure Summary Date: 09/11/20 Room / Location: [place] [address] / [facility] in [place], [place] Anesthesia Start: 746 Anesthesia Stop: 1119 Procedure: ARTHROPLASTY TOTAL HIP, DIRECT ANTERIOR. (Left Hip) Diagnosis: Primary Osteoarthritis Hip Left (Primary Osteoarthritis Hip Left [M16.12].) Providers: Ángel Apodaca M.D. Responsible Provider: Pelon Manjarrez D.O. Anesthesia Type: regional ASA Status: 3 Anesthesia Type: regional Last vitals Vitals Value Taken Time BP 99/52 09/11/20 1215 Temp 36.4 ??C 09/11/20 1118 Pulse 69 09/11/20 1219 Resp 10 09/11/20 1218 SpO2 97 % 09/11/20 1219 Vitals shown include unvalidated device data. Please reference Vitals flowsheet for most recent vital signs. Anesthesia Post Evaluation Patient Disposition: general care unit Cardiovascular status: hemodynamics (HR & BP) acceptable Respiratory status: patent airway with spontaneous effort Temperature: normothermic Oxygen requirements: room air Level of consciousness: awake Pain score: pain adequately controlled and/or at baseline Post Op nausea/vomiting: none Hydration status: euvolemic ER'S LICENSE EXAMINER Anesthesia Procedure Notes - Vinny Garay D.O. - 09/11/2020 8:26 AM DRIVER'S LICENSE EXAMINER Associated Order(s): Regional Block Regional Block Date/Time: 09/11/2020 8:05 AM Performed by: Vinny Garay D.O. Authorized by: Pelon Manjarrez D.O. Location: OR PROCEDURE DETAILS: Block type: primary anesthetic Neuraxial: spinal Positioning: lateral (right) Approach: paramedian Level inserted: L2-3 Block technique: landmark technique Injection technique: single injection Needle type: moody Gauge: 22G Length: 10 CSF: yes Pain with needle advancement or injection of local anesthetic: no Injected Medications: Injection(s), anesthetic agent(s) and/or steroid; See MAR UNIVERSAL PROTOCOL All relevant documentation and testing were reviewed and available. All required blood products, implants, devices and or special equipment were made available as applicable. Pre-procedure verificationwas conducted and the correct site was marked if required. A fire risk assessment was done as applicable. The procedural time-out was conducted prior to performing the procedure and confirmed in a procedural pause. PRE-PROCEDURE DETAILS: Appropriate hand hygiene, gown, cap, mask, protective eyewear, sterile gloves, skin preparation, sterile drape, and strict aseptic technique were utilized as applicable for the procedure.: yes Skin prep: chlorhexidine / alcohol SEDATION / ANESTHESIA Anesthesia method: local infiltration and moderate sedation Local infiltrate type: lidocaine I completed the presedation assessment form and supervised the sedation. Planned sedation level achieved: yes Present during sedation (intra-service time). A trained independent observer (e.g. RN) assisted withmonitoring the patient's level of consciousness and physiological status throughout the procedure (see nursing documentation). POST-PROCEDURE DETAILS: Procedure completed successfully: successful procedure Other complications: none ATTESTATION STATEMENT An accredited resident or fellow participated in the case, and the leasing consultant was present for the entire case. ER'S LICENSE EXAMINER Anesthesia Preprocedure Evaluation - Pelon Manjarrez D.O. - 09/11/2020 7:05 AM CST Preprocedure Anesthesia & H&P Assessment Procedure Summary Anesthesia Start Date/Time: 09/11/20 0747 Procedure: ARTHROPLASTY TOTAL HIP, DIRECT ANTERIOR. 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 Location: [place] [address] / [facility] in [place], [place] Providers: Ángel Apodaca M.D. Pertinent components of the patient's history including current problem list, medical history, surgical history, family history, social history, medications and allergies were reviewed. Present illnessand pre-op diagnosis were confirmed. The planned surgery / procedure was verified with the patient /legal guardian. The patient's general health condition remains unchanged RELEVANT COMORBID CONDITIONS ANESTHESIA (+) Post Operative Nausea/Vomiting CV (+) Hypertension Essential Primary GENETICS (+) Hyperlipidemia Other (+) Varicose Vein Lower Extremity With Pain Bilateral OBJECTIVE PHYSICAL EXAMINATION Airway (HEENT) Mallampati: II TM Distance: >3 FB Neck ROM: Full Mouth Opening: >3 cm Cardiovascular Rhythm: Regular Rate: Normal Cardiovascular Assessment: cardiovascular normal Functional Capacity: >4 METS Pulmonary Pulmonary Assessment: Clear General / Constitutional Constitutional Assessment: Normal General State of Health:: healthy appearing and calm Neurological Neurologic Assessment:??alert and alert and oriented x 3 Dental Dental Assessment: dentition intact ASSESSMENT / PLAN ANESTHESIA PLAN ASA: 3 Anesthesia Plan: regional Extensive conversation had with patient regarding propofol allergy. Patient re- affirms severe N/V with propofol and would prefer not to have propofol. Discussion had regarding other options including midazolam, fentanyl, and dexmedetomidine and weighing the pros/cons of being more aware during the proc edure. Patient ok with midazolam/fentanyl and dexmedetomidine back up. Patient brought in bladder stimulator remote and turned device off. This was confirmed by anesthesia team. Surgical team instructed to place cautery pad away from device. Patient seen and allergies reviewed, anesthesia plan and risks discussed directly with patient /legal guardian or through an dynamite reclaimer. Risks/Benefits/Alternatives of Blood transfusion discussed with patient / legal guardian, including an opportunity to ask questions and/or decline some or all transfusion therapies. The patient / legalguardian consented to the use of all blood products, as deemed medically necessary Approval to Proceed: approved for anesthesia ER'S LICENSE EXAMINER documented in this encounter Plan of Treatment Upcoming Encounters Date Type Specialty Care Team Description 09/08/2022 Procedure visit Aesthetic Medicine and Juanita Vaz, Surgery PROJECT CONSULTANT, C.N.P. [address] [place] [address] [phone] (Wo rk) 09/08/2022 Comprehensive Visit Aesthetic Medicine and Lucero Pritchard, Surgery MJayda, Ph.D. [address] [place] [address] [phone] (Wo rk) documented as of this encounter Procedures Procedure Name Priority Date/Time Associated Comments Diagnosis ANESTHESIA REGIONAL Routine 09/11/2020 8:26 AM Re sults for this BLOCK DRIVER'S LICENSE EXAMINER procedure are i n the results section. documented in this encounter Results Regional Block (09/11/2020 8:26 AM DRIVER'S LICENSE EXAMINER) Narrative Pelon Manjarrez D.O. - 09/11/2020 8: 26 AM DRIVER'S LICENSE EXAMINER Vinny Garay D.O. ? 09/11/2020 ??8:26 AM Regional Block Date/Time: 09/11/2020 8:05 AM Performed by: Vinny Garay D.O. Authorized by: Pelon Manjarrez D.O. Location: OR PROCEDURE DETAILS: Block type: primary anesthetic ?? Neuraxial: spinal ?? Positioning: lateral (right) ?? Approach: paramedian Level inserted: L2-3 Block technique: landmark technique ?? Injection technique: single injection Needle type: moody Gauge: 22G Length: 10 CSF: yes ??Pain with needle advancement or injection of local anesthetic: no ?? Injected Medications: Injection(s), anes thetic agent(s) and/or steroid; See MAR UNIVERSAL PROTOCOL All relevant documentation and testing [...] confirmed in a procedu ral pause. PRE-PROCEDURE DETAILS: ?? Appropriate hand hygiene, gown, cap, mas k, protective eyewear, sterile gloves, skin preparation, sterile drape, and strict aseptic technique were utilized as applicable for the procedure .: yes ?? Skin prep: chlorhexidine / alcohol SEDATION / ANESTHESIA Anesthesia method: local infiltration an d moderate sedation Local infiltrate type: lidocaine I completed the presedation assessment f orm and supervised the sedation. Planned sedation level achieved: yes ?? Present during sedation (intra-service t jordan). A trained independent observer (e.g. RN) assisted with monitor ing the patient's level of consciousness and physiological status t hroughout the procedure (see nursing documentation). POST-PROCEDURE DETAILS: Procedure completed successfully: succes sful procedure Other complications: none ATTESTATION STATEMENT An accredited resident or fellow partici pated in the case, and the leasing consultant was present for the entire ca se. Pelon Manjarrez D.O. PROCEDURE/MINOR SURGICAL ORD ERABLES documented in this encounter Visit Diagnoses Not on filedocumented in this encounter Administered Medications Inactive Administered Medications - up to 3 most recent administrations Medication Order MAR Action Action Date Dose Rate Site albumin human 5 % injection New Bag 09/11/2020 10:05 AM DRIVER'S LICENSE EXAMINER intravenous, Continuous Infusion: Per Instructions PRN, Starting on Wed09/11/20 at 0936, Anesthesia Intra-op New Bag 09/11/2020 9:36 AM DRIVER'S LICENSE EXAMINER bupivacaine PF 0.5 % (5 mg/mL) injection Given 09/11/2020 8:05 A M DRIVER'S LICENSE EXAMINER 2.2 mL (MARCAINE) As needed, Starting on Wed09/11/20 at 0805, Anesthesia Intra-op ceFAZolin injection 2,000 mg (ANCEF) Given 09/11/2020 8:46 AM DRIVER'S LICENSE EXAMINER 2 g 2,000 mg (rounded from 1,692.5 mg = 25 m g/kg ? 67.7 kg Dosing weight), intravenous, Once, On Wed09/11/20 at 0645, For 1 dose, Intra-Op, Preoperatively within 1 hour prior to surgical incision If needed, reconstitute vial per package insert instructions. See IVAG for administration guidelines. , Drug Monitoring Program: Pharmacist to adjust medication dosing based on indication and drug clearance factors., Indications: Prophylaxis, surgical dexAMETHasone injection (DECADRON) Given 09/11/2020 8:15 AM DRIVER'S LICENSE EXAMINER 8 mg As needed, Starting on Wed09/11/20 at 0815, Anesthesia Intra-op dexmedeTOMIDine 4 mcg/mL Rate/Dose Change 09/11/2020 10:08 0.7 mcg/ kg/hr 11.4 mL/hr in NaCl 0.9% 100 mL AM DRIVER'S LICENSE EXAMINER infusion (PRECEDEX) 0.1-1.5 mcg/kg/hr ? 65.5 kg [...] care unit Rate/Dose Change 09/11/2020 9:40 AM DRIVER'S LICENSE EXAMINER 0.8 mcg/kg/hr 13.1 mL/hr Rate/Dose Change 09/11/2020 9:06 AM DRIVER'S LICENSE EXAMINER 1 mcg/kg/hr 16.3 mL/hr ePHEDrine (PF) injection Given 09/11/2020 11:17 AM DRIVER'S LICENSE EXAMINER 5 mg As needed, Starting on Wed09/11/20 at 0939, Anesthesia Intra-op Given 09/11/2020 10:52 AM DRIVER'S LICENSE EXAMINER 5 mg Given 09/11/2020 10:07 AM DRIVER'S LICENSE EXAMINER 5 mg fentaNYL injection (SUBLIMAZE) Given 09/11/2020 10:39 AM DRIVER'S LICENSE EXAMINER 25 mcg intravenous, As needed, Starting on Wed09/11/20 at 0751, Anesthesia Intra-op Given 09/11/2020 8:49 AM DRIVER'S LICENSE EXAMINER 25 mcg Given 09/11/2020 8:23 AM DRIVER'S LICENSE EXAMINER 25 mcg glycopyrrolate injection (ROBINUL) Given 09/11/2020 8:23 AM DRIVER'S LICENSE EXAMINER 0.2 mg As needed, Starting on Wed09/11/20 at 0823, Anesthesia Intra-op Given 09/11/2020 8:19 AM DRIVER'S LICENSE EXAMINER 0.2 mg hydrALAZINE injection (APRESOLINE) Given 09/11/2020 9:10 AM DRIVER'S LICENSE EXAMINER 10 mg As needed, Starting on Wed09/11/20 at 0910, Anesthesia Intra-op labetalol injection (NORMODYNE,TRANDATE) Given 09/11/2020 9:07 AM DRIVER'S LICENSE EXAMINER 10 mg As needed, Starting on Wed09/11/20 at 0854, Anesthesia Intra-op Given 09/11/2020 9:04 AM DRIVER'S LICENSE EXAMINER 10 mg Given 09/11/2020 9:01 AM DRIVER'S LICENSE EXAMINER 5 mg lactated ringers New Bag 09/11/2020 9:05 AM DRIVER'S LICENSE EXAMINER intravenous, Continuous Infusion: Per Instructions PRN, Starting on Wed09/11/20 at 0748, Anesthesia Intra-op New Bag 09/11/2020 7:48 AM DRIVER'S LICENSE EXAMINER midazolam (PF) injection (VERSED) Given 09/11/2020 10:39 AM DRIVER'S LICENSE EXAMINER 0.5 mg intravenous, As needed, Starting on Wed09/11/20 at 0751, Anesthesia Intra-op Given 09/11/2020 9:40 AM DRIVER'S LICENSE EXAMINER 0.5 mg Given 09/11/2020 9:06 AM DRIVER'S LICENSE EXAMINER 0.5 mg ondansetron (PF) injection (ZOFRAN) Given 09/11/2020 10:25 AM DRIVER'S LICENSE EXAMINER 4 mg As needed, Starting on Wed09/11/20 at 1025, Anesthesia Intra-op phenylephrine 80 mcg/mL in New Bag 09/11/2020 9:54 AM 0.2 mcg/kg/m in 9.83 mL/hr NaCl 0.9% 250 mL infusion DRIVER'S LICENSE EXAMINER Continuous Infusion: Per Instructions PRN, Starting on Wed09/11/20 at 0954, Anesthesia Intra-op phenylephrine injection Given 09/11/2020 10:07 AM DRIVER'S LICENSE EXAMINER 100 mcg As needed, Starting on Wed09/11/20 at 0939, Anesthesia Intra-op Given 09/11/2020 9:49 AM DRIVER'S LICENSE EXAMINER 100 mcg Given 09/11/2020 9:43 AM DRIVER'S LICENSE EXAMINER 50 mcg tranexamic acid in NaCl IVPB 1,000 mg Given 09/11/2020 8:[address] 1 g (CYKLOKAPRON) 1,000 mg (1 g), intravenous, at 300 mL/hr, Administer over 20 Minutes, Once, On Wed09/11/20 at 0645, For 1 dose, Intra-Op, Administer in OR upon induction premix bag tranexamic acid in NaCl IVPB 1,000 mg Given 09/11/2020 10:29 AM DRIVER'S LICENSE EXAMINER 1 g (CYKLOKAPRON) 1,000 mg (1 g), intravenous, at 300 mL/hr, Administer over 20 Minutes, Once, On Wed09/11/20 at 0645, For 1 dose, Intra-Op, Administer in OR just before dropping tourniquet premix bag documented in this encounter Care Teams Physician Underwriter Relationship Specialty Start Date End Date Elsewhere, Pcp PCP - General Internal Medicine 07/03/17 documented as of this encounter
--- OUTSIDE RECORDS SUMMARY | 2022-07-30 19:54 | XMS_ITS | Encounter Summary ---
:1945 Author Organization [facility] Address [address] [place] [address] Care Team Providers Name Role Phone Elsewhere, Pcp Primary Care Provider Unavailable Encounter Details Date Type Department Care Team Description 09/10/2020 Clinical Communication Division of [facility]in[facility] in [place], [place] [address] [facility] [address] [place] [phone] Social History Tobacco Use Types Packs/Day Years [...] place to sleep or slept in a mcc (including now)? Education Answer Date Recorded What is the highest level of school Master's degree (e.g., M [employer], MS, 03/30/2019 you have completed or the highest Armando, MEd, WAFER PRODUCTION WORKER, ALL) degree you have received? Sex Assigned at Date Recorded Female 07/26/2020 9:06 PM CDT documented as of this encounter Miscellaneous Notes Telephone Encounter - Merrill Harris M.D. - 09/12/2020 10:50 AM CST I reviewed the medical records from Ms. Sheikh's c engineer. Thanks for the note. NTIFIC GLASS BLOWER Telephone Encounter - Lisa Craig - 09/10/2020 11:48 AM CST Outside records received from [facility]. Viewable under the Media tab. Thanks. Lisa Houston Duplicator Punch Set Up Operator [phone] NTIFIC GLASS BLOWER documented in this encounter Plan of Treatment Upcoming Encounters Date Type Specialty Care Team Description 09/08/2022 Procedure visit Aesthetic Medicine and Juanita Vaz, Surgery ARTIFICIAL LOG MACHINE OPERATOR, C.N.P. [address] [place] [phone] (Charlotte bentley) 09/08/2022 Comprehensive Visit Aesthetic Medicine Lucero Mckeon Surgery MJayda, Ph.D. [address] [place] [address] (Charlotte bentley) documented as of this encounter Visit Diagnoses Not on filedocumented in this encounter Care Teams Rn Support Services Relationship Specialty Start Date End Date Elsewhere, Pcp PCP - General Internal Medicine 07/03/17 documented as of this encounter
--- OUTSIDE RECORDS SUMMARY | 2022-07-30 19:54 | XMS_ITS | Encounter Summary ---
:1945 Author Organization [facility] Address [address] [place] [address] Care Team Providers Name Role Phone Elsewhere, Pcp Primary Care Provider Unavailable Encounter Details Date Type Department Care Team Description 09/11/2020 - Hospital Encounter [facility] Ángel Apodaca culty Walking 09/12/2020 Hospital, Jagdish Moe M.D. Orthopedic Hip [facility] [address] [facility], [place], [place] Floor [address] [address] [facility] [phone] [place], [place] (Work) [phone] Social History Tobacco Use Types Packs/Day Years [...] have completed or the highest Armando, MEd, [employer], ALL) degree you have received? Sex Assigned at Date Recorded Female 07/26/2020 9:06 PM CDT documented as of this encounter Last Filed Vital Signs Vital Sign Reading Time Taken Comments Blood Pressure 114/57 09/12/2020 1:09 PM FRUIT THINNER Pulse 66 09/12/2020 1:09 PM FRUIT THINNER Temperature 37 ??C (98.6 ??F) 09/12/2020 1:09 PM FRUIT THINNER Respiratory Rate 16 09/12/2020 1:09 PM FRUIT THINNER Oxygen Saturation 100% 09/12/2020 1:09 PM FRUIT THINNER Inhaled Oxygen Concentration - - Weight 65.5 kg (144 lb 6.4 oz) 09/11/2020 6:07 AM FRUIT THINNER Height 166 cm (5' 5.35) 09/11/2020 6:07 AM FRUIT THINNER Body Mass Index 23.77 09/11/2020 6:07 AM FRUIT THINNER documented in this encounter Discharge Summaries Steven Gupta M.D. - 09/12/2020 8:50 AM CST DISCHARGE SUMMARY BRIEF OVERVIEW Hospital: [facility] Discharge Provider: Ángel Apodaca M.D. Primary Team: [facility] Orthopedic Surgery - Paulie Primary Care Providers: [...] M.D.Rames, Richard D, M.D.Lee, Dustin R, M.D. RST ROEI OR DISCHARGE DISPOSITION Home or Self [...] Ángel Apodaca M.D.Pb Marshall M.D.Steven Gupta M.D. [facility] [place]IG[place] OR Yamileth Sheikh was taken to [...] ORDERED DURING THIS ADMISSION IP CONSULT TO TABULAR TYPIST DIRECTOR PATIENT CONDITION AT DISCHARGE stable Discharge instructions were provided to the patient and caregiver(s). T THINNER documented in this encounter Discharge Instructions AttachmentsThe following attachments cannot be sent through Care Everywhere. Exercises for the Legs (Sitting) (Belgian)Ondansetron (By mouth, Into the mouth) (Belgian)Celecoxib (By mouth) (Belgian)Acetaminophen (By mouth) (Belgian) Oxycodone, Rapid Release (By mouth) (Belgian)Omeprazole (By mouth) (Belgian) Senna (By mouth) (Belgian)Aspirin (By mouth) (Belgian)documented in this encounter Medications at Time of [...] Inpatient Treatment Note SUBJECTIVE Patient's Name: Yamileth Sheikh Referring/Attending: Ángel Apodaca M.D. Medical Diagnosis: Primary [...] extremity. Educated and reviewed proper use ofleg film or tape librarian. Supervision level assist required when patient utilized leg film or tape librarian with transfer. Bed Mobility - Sit to Supine # of Assistants: 1 Level of Assistance: Minimal assistance Device: None Cuing: Verbal, Tactile Comments: Physical assist provided for the left lower extremity. Educated and reviewed proper use ofleg film or tape librarian. Supervision level assist required when patient utilized leg film or tape librarian with transfer. Bed Mobility - Scooting Level of Assistance: Independent Device: None Comments: Supine, utilizing right lower extremity Transfer - Sit to Stand # of Assistants: 1 Device: Front wheeled walker(And bilateral axillary crutches) Level of Assistance: Minimal assistance Comments: Reviewed transfer utilizing front wheeled walker. Instructed on transfer utilizing bilateral axillary crutches. At this time mortgage or loan underwriter recommending use of front wheeled walker until patient is more stable upon standing. Transfer - Stand to Sit # of Assistants: 1 Level of Assistance: Minimal assistance Device: Front wheeled walker(And bilateral axillary crutches) Comments: Reviewed transfer utilizing front wheeled walker. Instructed on transfer utilizing bilateral axillary crutches. At this time mortgage or loan underwriter recommending use of front wheeled walker until [...] 3-5 steps with a railing?: A Little -[facility] Basic Mobility (V.2) Raw Score: 19 -[facility] Basic Mobility (V.2) Standardized Score: 42.48 Interpretation: Clinicians answer the -[facility] Inpatient Short Form based on observed patient [...] to a walker upon discharge, purchased through [employer]. DME form filled out. Clinical Impression of [...] (min): 43 min Marianna Bob P.T., D.P.T. T THINNER Steven Gupta M.D. - 09/12/2020 6:01 AM [...] months Steven Gupta M.D. Please contact the [employer] service at [phone] with any questions or concerns regarding this patient. If outside of 06:00 - 18:00 on weekdays or any time on the weekend, please contact the Orthopedic Surgery house resident marketing professional at [phone]. T THINNER Pb Marshall M.D. - 09/11/2020 3:25 PM [...] Consulted for gait training and mobilization per Emerson protocol Anticipated Disposition: Home likely tomorrow after PT Follow-up: Patient will follow-up with Dr. Apodaca in the clinic in approximately 3 months Marco Antonio Marshall M.D. Please contact the Paulie service at [phone] with any questions or concerns regarding this patient. If outside of 06:00 - 18:00 on weekdays or any time on the weekend, please contact the Orthopedic Surgery house resident marketing professional at [phone]. T THINNER Reggie Gray - 09/11/2020 7:10 AM CST Encounter: AM Admit Jane Tradition: Religion. Ms. Kori requested prayer before surgery. Shared prayer. Plan: Will remain available for spiritual care as needed or requested. Chaplains can be contacted bypaging [phone] ([facility]). T THINNER documented in this encounter Consult Notes Vini aJmes M.T.S. - 09/12/2020 1:02 PM CST Encounter: Communion Situation: Communion has been requested for Yamileth Sheikh's room on 09/12/20. Patient was alertlying in bed and mentioned that she will be discharged today. Family: None Jane Tradition: The patient's synagogue is Religion. Communion: The Sacrament was administered with prayers and blessings. Plan: Will remain available for spiritual care as needed or requested. Chaplains can be contacted bypaging [phone] ([facility]. Fr. Jakob James [facility] T THINNER Reggie Gray - 09/12/2020 12:11 PM CSTAssociated Order(s): IP CONSULT TO TABULAR TYPIST DIRECTOR PATIENT Encounter: Spiritual Care Consult. Jane Tradition: Religion. Ms. Sheikh requested communion. Referred to the Religion chaplainfor follow up. Plan: Will remain available for spiritual care as needed or requested. Chaplains can be contacted bypaging [phone] ([facility]). T THINNER Yamileth King O.T. - 09/12/2020 10:58 AM [...] BREAST SURGERY Reduction 2009 Biopsies 1994, 1997, 2015 ??? CATARACT EXTRACTION, BILATERAL Bilateral 2017 Lens: [...] Prior Function / Occupational Profile Level of [place]: Independent with ADLs and functional transfers, Independent [...] Toilet: Standard Home Equipment Home Adaptive Equipment: Hat Designer Gait Devices Owned: Front-wheeled walker, Cane, Axillary [...] Therapist reviewed fall prevention strategies including using shoe designer and modified golfer's lift as appropriate to [...] session: no Outcome Measures Current ADL Status: [facility] Inpatient Short Form: Putting on and taking [...] Standardized Score: 44.27 Interpretation: Clinicians answer the [facility] Inpatient Short Form based on observed patient [...] Time (min): 44 min Yamileth King O.T. T THINNER Marianna Bob P.T., D.P.T. - 09/11/2020 2:54 PM CST [...] Prior Function / Occupational Profile Level of [place]: Independent with ADLs and functional transfers Lives With: Alone ADL Assistance: Independent Homemaking Assistance: Independent Driving: Independent Occupational Role: Retired Home Equipment Home Adaptive Equipment: Hat Designer Gait Devices Owned: Front-wheeled walker, Cane, Axillary [...] provided today: Rehabilitation After Total Hip Replacement ([id number]) and Modified due to direct anterior approach, [...] 3-5 steps with a railing?: A Lot [facility] Basic Mobility (V.2) Raw Score: 17 [facility] Basic Mobility (V.2) Standardized Score: 39.67 Interpretation: Clinicians answer the [facility] Inpatient Short Form based on observed patient [...] (min): 55 min Marianna Bob P.T., D.P.T. T THINNER documented in this encounter Nursing Notes Kymberly [...] doing stairs withoutbecoming dizzy/lightheaded. Patient dismissed from [facility] [place] [facility] [place] son providing transportation. Patient picked up prescriptionsof Zofran, Tramadol, Celebrex, Tylenol, Aspirin, Oxycodone, Prilosec and Senna from [facility] pharmacy upon dismissal. AVS was reviewed with [...] from fall/fall injury Outcome: Adequate for Discharge T THINNER Lesley Ortez R.N. - 09/11/2020 6:25 PM [...] tylenol and ice. Patient refused additional medications. T THINNER documented in this encounter OR Notes Op Note - Ángel Apodaca M.D. - 09/11/2020 8:49 AM CST FULL OP NOTE Procedure(s) (LRB): ARTHROPLASTY TOTAL HIP, DIRECT ANTERIOR. (Left) Surgeon(s) and Role: * Ángel Apodaca M.D. - Primary * Pb Marshall M.D. - Clerk General Office * Steven Gupta M.D. - Other Coastal Tug Mate Anesthesia Type Regional Pre-operative Diagnosis Primary Osteoarthritis Hip Left Post-operative Diagnosis Primary Osteoarthritis Hip Left Findings As expected. Complications None Description of Procedure The patient was brought to the OR at [facility]. The patient had spinal anesthesia performed by the anesthesia personnel. Local arthroplasty block was performed throughout the procedure. The patient was placed in a supine position on operative table. Both feet were placed in boots for the Rosalia table. The left hip was sterilely prepped [...] femoral component the femoral hook from the Rosalia bed was placed around the vastus ridge. [...] soft tissue tension. The real Biolox Delta [id number] mm femoral head +0 mm neck was [...] Implant Name Type Inv. Item Serial No. Computer System Technician Lot No. LRB No. Used Action CMNT BN HI VISC PMMA 40 - [id number] Bone Cement CMNT BN HI VISC PMMA 40 Cinthya Left 1 Implanted CMNT BN HI VISC PMMA 40 - [id number] Bone Cement CMNT BN HI VISC PMMA 40 [place] Left 1 Implanted HIP RSTRC CMNT 24 - [id number] Hardware e.g. pins/screws/rods HIP RSTRC CMNT 24 Cinthya Left 1 Implanted cup Hip Implant [employer] [id number] Left 1 Implanted HIP SCRW EMP ACET 6.5X30 - [id number] Hardware e.g. pins/screws/rods HIP SCRW EMP ACET 6.5X30 [employer] [id number] Left 1 Implanted HIP SCRW EMP ACET 6.5X35 - [id number] Hardware e.g. pins/screws/rods HIP SCRW EMP ACET 6.5X35 [employer] [id number] Left 1 Implanted LNR EMP STD SZ 36F - [id number] Hip Implant LNR EMP STD SZ 36F [employer] [id number] Left 1 Implanted distal tip Hip Implant [employer] [id number] Left 1 Implanted stem Hip Implant [employer] [id number] Left 1 Implanted HIP HEAD DELTA CER 36MM, NEUT - [id number] Hip Implant HIP HEAD DELTA CER 36MM, NEUT Bo[employer] Cherie [id number] Left 1 Implanted Ángel Apodaca M.D. T THINNER documented in this encounter Miscellaneous Notes Hospital Course - Steven Gupta M.D. - 09/12/2020 7:46 AM CST Surgery Information This Encounter Past Procedures (09/13/2019 to Today) Date Procedures Providers Location 09/11/2020 ARTHROPLASTY TOTAL HIP, DIRECT ANTERIOR. Ángel Apodaca M.D.Rames, Richard D, M.D.Lee, Dustin R, M.D. [facility] [place] OR Yamileth Sheikh was taken to [...] and any other co-managing teams dated 09/12/2020. T THINNER documented in this encounter Plan of Treatment Upcoming Encounters Date Type Specialty Care Team Description 09/08/2022 Procedure visit Aesthetic Medicine and Juanita Vaz, Surgery SOFTWARE VALIDATION ENGINEER, C.N.P. [address] [place] [phone] (Charlotte bentley) 09/08/2022 Comprehensive Visit Aesthetic Medicine Lucero Mckeon, Andreia Ma, Ph.D. [address] [place] [phone] (Charlotte bentley) documented as of this encounter Procedures Procedure Name Priority Date/Time Associated Diagnosis Comme nts POCT NONINVASIVE Routine 09/12/2020 6:23 Results for HGB AM FRUIT THINNER this procedure are in the results section. CBC WITHOUT Routine 09/12/2020 4:32 Results for DIFFERENTIAL, B AM FRUIT THINNER this procedu re are in the results section. DX HIP LEFT 2-3 RAD - Routine 09/11/2020 Results for VIEWS (most inpatients 11:23 AM FRUIT THINNER this proced ure and all are in the outpatients) results section. FL FLUORO LESS THAN RAD - Routine 09/11/2020 Results for 1 HOUR (most inpatients 10:28 AM FRUIT THINNER this proced ure and all are in the outpatients) results section. ARTHROPLASTY TOTAL 09/11/2020 7:16 Primary HIP - DIRECT AM FRUIT THINNER Osteoarthritis Hip ANTERIOR Left documented in this encounter Results (ABNORMAL) Noninvasive HGB, POCT (09/12/2020 6:23 AM FRUIT THINNER) [facility] Method Time Signature Noninvasive HGB, 10.2 (A) 11.6 - POCT 15.0 g/dL Comment: left index Specimen (Source) Anatomical Collection Method Collection Time Re ceived Time Location / / Volume Laterality Skin 09/12/2020 6:23 AM FRUIT THINNER Sho Song APRN, C.N.P. LAB POCT ORDERABLES-MANUAL (ABNORMAL) CBC without Differential (09/12/2020 4:32 AM FRUIT THINNER) [facility] gist Method Time Signature Hemoglobin 8.8 (L) 11.6 - 09/12/2020 DTL 15.0 g/dL 5:28 AM FRUIT THINNER Hematocrit 26.7 (L) 35.5 - 09/12/2020 DTL 44.9 % 5:28 AM FRUIT THINNER Erythrocytes 2.84 (L) 3.92 - 09/12/2020 DTL 5.13 5:28 AM FRUIT THINNER x10(12)/L MCV 94.0 78.2 - 09/12/2020 DTL 97.9 fL 5:28 AM FRUIT THINNER RBC Distrib Width 12.5 12.2 - 09/12/2020 DTL 16.1 % 5:28 AM FRUIT THINNER Platelet Count 116 (L) 157 - 371 09/12/2020 DTL x10(9)/L 5:28 AM FRUIT THINNER Leukocytes 11.8 (H) 3.4 - 9.6 09/12/2020 DTL x10(9)/L 5:28 AM FRUIT THINNER Specimen Anatomical Collection Method Collection Time Receive d Time (Source) Location / / Volume Laterality Blood (Blood, 09/12/2020 4:32 AM 09/12/20 20 5:19 Venous) FRUIT THINNER AM FRUIT THINNER Pb Marshall M.D. LAB BLOOD ADD-ON Performing Organization Address City/State/ZIP Code Phon e Number [facility] - [address] [place], [place] [address] [facility] [place] [address] Laboratories-[facility] [address] DX Hip Left 2-3 Views (09/11/2020 11:23 AM FRUIT THINNER) Anatomical Region Laterality Modality Lower Extremity, Hip, Musculoskeletal RST LOS, Left Computed Radiography Musculoskeletal ARZ LOS, Muskuloskeletal FLA LOS Specimen (Source) Anatomical Collection Method Collection Time Re ceived Time Location / / Volume Laterality 09/11/2020 11:24 AM FRUIT THINNER Impressions 09/11/2020 11:24 AM FRUIT THINNER Postop left ALEKS. Right ALEKS. Sacral stimulator incompletely included. Narrative 09/11/2020 11:24 AM FRUIT THINNER EXAM: ??DX HIP LEFT 2-3 VIEWS Procedure Note Benito Brown M.D. - 09/11/2020For matting of this note might be different from the original. EXAM: DX HIP LEFT 2-3 VIEWS IMPRESSION: Postop left ALEKS. Right ALEKS. Sacral stimu lator incompletely included. Sho Song APRN, C.N.P. [facility] PRO CEDURES FL Fluoro Less Than 1 Hour (09/11/2020 10:28 AM FRUIT THINNER) Specimen (Source) Anatomical Location Collection Method / Collectio n Time Received Time / Laterality Volume Narrative [id number] - 09/11/2020 10:29 AM FRUIT THINNER This exam does not require a radiologist review or interpretation. Please refer to the patient's medical record on this date for clinical details. Maria Victoria Jain APRN FLUOROSCOPY PROCEDURES Performing Organization Address City/State/ZIP Code Phon e Number [id number] NA documented in this encounter Visit Diagnoses Diagnosis Primary Osteoarthritis Hip Left - Primar y Difficulty Walking Orthopedic Hip Cause Hypertension Essential Primary Osteoporosis Hyperlipidemia Post Operative Nausea/Vomiting documented in this encounter Admitting Diagnoses Diagnosis Primary Osteoarthritis Hip Left documented in this encounter Administered Medications Inactive Administered Medications - up to 3 most recent administrations Medication Order MAR Action Action Date Dose Rate Site acetaminophen tablet 1,000 mg Given 09/11/2020 7:10 AM FRUIT THINNER 1,000 mg (TYLENOL) 1,000 mg, oral, Once, On Wed09/11/20 at 0700, For 1 dose, Pre-Op acetaminophen tablet 1,000 mg (TYLENOL) Given 09/12/2020 1:54 PM FRUIT THINNER 1,000 mg 1,000 mg, oral, Every 6 hours, First dose on Wed09/11/20 at 1400 Given 09/12/2020 8:05 AM FRUIT THINNER 1,000 mg Given 09/12/2020 3:00 AM FRUIT THINNER 1,000 mg aspirin chewable tablet 81 mg Given 09/12/2020 8:04 AM FRUIT THINNER 81 mg 81 mg, oral, 2 times daily, First dose on Wed09/11/20 at 2100 Given 09/11/2020 8:29 PM FRUIT THINNER 81 mg ceFAZolin in dextrose (iso-os) IVPB 2 New Bag 09/12/2020 12:14 AM FRUIT THINNER 2 g 200 mL/hr g (ANCEF) 2 g, intravenous, at 200 mL/hr, Administer over 30 Minutes, Every 8 hours, First dose on Wed09/11/20 at 1630, For 2 doses, Start within 8 hours of last IV dose. premix bag, Drug Monitoring Program: Pharmacist to adjust medication dosing based on indication and drug clearance factors., Indications: Prophylaxis, surgical New Bag 09/11/2020 4:40 PM FRUIT THINNER 2 g 200 mL/hr celecoxib capsule 200 mg (CeleBREX) Given 09/11/2020 7:11 AM FRUIT THINNER 200 mg 200 mg, oral, Once, On Wed09/11/20 at 0700, For 1 dose, Pre-Op celecoxib capsule 200 mg (CeleBREX) Given 09/12/2020 8:05 AM FRUIT THINNER 200 mg 200 mg, oral, Daily, First dose on Jessica 09/12/20 at 0900 dexmedeTOMIDine 4 mcg/mL Rate/Dose Change 09/11/2020 10:08 0.7 mcg/ kg/hr 11.4 mL/hr in NaCl 0.9% 100 mL AM FRUIT THINNER infusion (PRECEDEX) 0.1-1.5 mcg/kg/hr ? 65.5 kg [...] care unit Rate/Dose Change 09/11/2020 9:40 AM FRUIT THINNER 0.8 mcg/kg/hr 13.1 mL/hr Rate/Dose Change 09/11/2020 9:06 AM FRUIT THINNER 1 mcg/kg/hr 16.3 mL/hr HYDROmorphone (PF) injection 0.2 mg Given 09/11/2020 10:49 PM CS T 0.2 mg (DILAUDID) 0.2 mg, intravenous, Every 1 hour PRN, moderate pain or score 4-6 of 10, severe pain or score 7-10 of 10, Starting on Wed09/11/20 at 2048 irbesartan tablet 150 mg (AVAPRO) Given 09/12/2020 8:05 AM FRUIT THINNER 150 mg 150 mg, oral, Every morning, First dose on Jessica 09/12/20 at 0900 lactated Ringer's bolus 500 mL New Bag 09/11/2020 7:25 AM FRUIT THINNER 500 mL 1000 mL/hr 500 mL, intravenous, at 1,000 mL/hr, Administer over 30 Minutes, Once, On Wed09/11/20 at 0700, For 1 dose, Pre-Op lactated Ringer's bolus 500 mL New Bag 09/12/2020 7:36 AM FRUIT THINNER 500 mL 500 mL/hr 500 mL, intravenous, at 500 mL/hr, Administer over 1 Hours, Once, On Jessica 09/12/20 at 0630, For 1 dose NaCl 0.9% infusion New Bag 09/12/2020 12:12 AM FRUIT THINNER 20 mL/hr 20 mL/hr 125 mL/hr, intravenous, Continuous, Starting on Wed09/11/20 at 1245, Discontinue fluids when patient is tolerating 500 ml of oral fluid Rate/Dose Verify 09/11/2020 7:30 PM FRUIT THINNER 125 mL/hr 125 mL/hr New Bag 09/11/2020 1:05 PM FRUIT THINNER 125 mL/hr 125 mL/hr omeprazole DR capsule 40 mg (PriLOSEC) Given 09/12/2020 6:29 AM FRUIT THINNER 40 mg 40 mg, oral, Daily before [...] 2 hours, call service for new order. rosuvastatin tablet 5 mg (CRESTOR) Given 09/12/2020 8:04 AM FRUIT THINNER 5 mg 5 mg, oral, Every morning, First dose on Jessica 09/12/20 at 0900 scopolamine base 1 mg Medication Applied 09/11/2020 7:12 AM 1 patch Behind Right over 3 days 1 patch FRUIT THINNER Ear (TRANSDERM SCOP) 1 patch, transdermal, Administer over 24 Hours, Once as needed, Based on clinical assessment of mental status and history of PONV, Starting on Wed09/11/20 at 0655, For 1 dose, Pre-Op, Contains 1.5 mg to deliver 1 mg/72 hours. sennosides-docusate sodium 8.6-50 mg per Given 09/12/2020 8:04 A M FRUIT THINNER 1 tablet tablet 1 tablet (SENOKOT-S) 1 tablet, oral, 2 times daily, First dose on Wed09/11/20 at 2100, Do not give if patient has diarrhea. Given 09/11/2020 8:29 PM FRUIT THINNER 1 tablet documented in this encounter Active and Recently Administered Medications Times are shown in FRUIT THINNER. Scheduled Medication Order 09/10/2020 09/11/2020 09/12/2020 acetaminophen tablet 1,000 mg (TYLENOL) (COMPLETED) 0710 (Given - Provider: Yudelka Craig RAnaliNAnali) 1,000 mg, oral, Once, On Wed09/11/20 at 0700, For 1 dose, Pre-Op acetaminophen tablet 1,000 mg (TYLENOL) 1515 (Given - Provider: Lesley Ortez RAnaliN. - Comment: pt nauseated)2027 (Given - Provider: Tiff Goodman R.N.) 0300 (Given - Provider: Tiff de la cruz R.N.)0805 (Given - Provider: Kymberly Knight R.N.)1354 (Given - Provider: Kymberly Knight R.NAnali) 1,000 mg, oral, Every 6 hours, First [...] IV dose. premix bag, Drug Monitoring Program: Phar macist to adjust medication dosing based on indication and drug clearance factors., Indications: Prophylaxis, surgical ceFAZolin injection 2,000 mg (ANCEF) (COMPLETED) 845 (Given - Provider: Levy Mosley APRN, SPECIAL TRACKWORK BLACKSMITH) 2,000 mg (rounded from 1,692.5 mg = [...] dose, Pre-Op celecoxib capsule 200 mg (CeleBREX) 804 (Given - Provider: Kymberly Knight R.N.) 200 mg, oral, Daily, First dose on Wed09/12/20 at 0900 irbesartan tablet 150 mg (AVAPRO) 804 (Given - Provider: Kymberly Knight R.N.) 150 mg, oral, Every morning, First dose on Wed09/12/20 at 0900 lactated Ringer's bolus 500 mL (COMPLETED) 07 (New Bag - Provider: Yudelka Craig R.N.) [...] dose omeprazole DR capsule 40 mg (PriLOSEC) 628 (Given - Provider: Tiff Goodman R.N.) 40 [...] 2028 (Given - Provider: Tiff Goodman R.N.) 08 (Given - Provider: Kymberly Knight R.N.) 1 [...] (Rate/Dose Change - Provider: Levy Mosley APRN, CRNA) 0.1-1.5 mcg/kg/hr ? 65.5 kg Dosing weight (1.6375-24.5625 mL/hr, rounded to 1.63-24.56 mL/hr), intravenous, Continuous, Starting on Wed09/11/20 at 0645, Intra-Op, Premix ba mcg in 100 mL, Initiat 0849 (Rate/Dose Change - Pr ovider: Levy Mosley APRN, CRNA)0906 (Rate/Dose Change - Provider: Levy Mosley APRN, [...] ringers 1309 (Stopped - Provider: Brett Ortez R.NAnali) 20 mL/hr, intravenous, at 20 mL/hr, Cont inuous, Starting Wed09/11/20 at 1100, PACU & Post-Op NaCl 0.9% infusion 1305 (New Bag - Prov ider: Lesley Ortez R.N.)1930 (Rate/Dose Verify - Provider: Tiff Goodman RAnaliNAnali) 0012 (New Bag - Provider: Latanya Carrizales RAnaliN.)0740 (Stopped - Provider: Kymberly Knight R.N.) 125 mL/hr, intravenous, Continuous, Star ting on Wed09/11/20 at 1245, Discontinue fluids when patient is tolerating 500 ml of oral fluid PRN Medication Order 09/10/2020 09/11/2020 09/12/2020 calcium carbonate chewable tablet 400 mg of calcium (TUMS) 400 mg of calcium, oral, Every 2 hour CO N, indigestion, Starting Wed09/11/20 at 1243, Doses listed are in mg of elemental calcium. Take with food. 500 mg calcium carbonate contains 200 mg of elemental calcium. epinephrine 10 mcg/mL (1:100,000) in NaCl 0.9% soak so lution (VIAL) (COMPLETED) 1002 (Given - Provider: Ángel Apodaca M.D.) 100 mL, other, Once in surgery, OR use o nly, Starting Wed09/11/20 at 0641, For 1 dose, Intra-Op, *TO SOAK SPONGES* gentamicin powder 2.4 g (for bone cement) (COMPLETED) 1003 (Given - Provider: Ángel Apodaca M.D.) 2.4 g (2 vial), miscellaneous, Once in s urgery, OR use only, Starting Wed09/11/20 at 0641, For 1 dose, Intra-Op, [...] 7-10 of 10, Starting on Wed09/11/20 at 204 loratadine tablet 10 mg (CLARITIN) 10 mg, [...] 7-10 of 10, Starting on Wed09/11/20 at 1243, Second line therapy. If patient is greater than 7 after 2 hours, call service for new order. povidone iodine 0.25% in NaCl 0.9% irrigation solution (COMP LETED) 1019 (Given - Provider: Pb Marshall M.D.) irrigation, Once in surgery, OR use only , Starting Wed09/11/20 at 0641, For 1 dose, Intra-Op, [...] Once in surgery, OR use only, Starting Wed09/11/20 at 0641, For 1 dose, Intra-Op, *Not for IV use* ropivacaine (PF) 100 mg, EPINEPHrine 50 mcg, ketorolac 15 mg in NaCl 0.9% 60 mL injection (ARTHROPLASTY BLOCK 50-74.9 kg) (COMPLETED) 1025 (Given - Provider: Pb Marshall M.D.) 60 mL, infiltration, Once in surgery, OR use only, Starting Wed09/11/20 at 0641, For 1 dose, Intra-Op, [...] order.
documented in this encounter Care Teams Regional Manager Relationship Specialty Start Date End Date Elsewhere, Pcp PCP - General Internal Medicine 07/03/17 documented as of this encounter
--- OUTSIDE RECORDS SUMMARY | 2022-07-30 19:54 | XMS_ITS | Encounter Summary ---
:1945 Author Organization [facility] Address [address] [place] [address] Care Team Providers Name Role Phone Elsewhere, Pcp Primary Care Provider Unavailable Reason for Visit Reason Comments Communication Encounter Details Date Type Department Care Team Description 08/26/2020 Clinical Communication Department of Ángel Apodaca Orthopedic Surgery Francesca Moe in [address] [facility] [phone] [place], [place] [phone] (Work) [phone] Social History Tobacco Use Types Packs/Day Years [...] or relatives? How often do you attend denominational or More than 4 times per year 01/28/2021 hindu services? Do you belong to any clubs or Yes 01/28/2021 organizations such as denominational groups, unions, fraternal or athletic groups, or [...] have completed or the highest Armando, MEd, PARA PROFESSIONAL, ALL) degree you have received? Sex Assigned at Date Recorded Female 07/26/2020 9:06 PM CDT documented as of this encounter Miscellaneous Notes Telephone Encounter - Sho Song APRN, C.N.P. - 08/27/2020 11:15 AM PARATRANSIT DRIVER Returned call to patient and discussed the approximate time on how long someone should be with her after surgery. All further questions answered. TRANSIT DRIVER Telephone Encounter - Bibi Crawford I - 08/26/2020 2:50 PM CST Patient called with a question: how long after her surgery can the patient be home alone. Please call her to discuss. TRANSIT DRIVER documented in this encounter Plan of Treatment Upcoming Encounters Date Type Specialty Care Team Description 09/08/2022 Procedure visit Aesthetic Medicine and Juanita Vaz, Surgery CLAUDIA, C.N.P. [address] [place] [phone] (Wo rk) 09/08/2022 Comprehensive Visit Aesthetic Medicine Lucero Mckeon, Surgery M.DAnali, Ph.D. [address] [place] [phone] (Wo rk) documented as of this encounter Visit Diagnoses Not on filedocumented in this encounter Care Teams Barge Worker Relationship Specialty Start Date End Date Elsewhere, Pcp PCP - General Internal Medicine 07/03/17 documented as of this encounter
--- OUTSIDE RECORDS SUMMARY | 2022-07-30 19:54 | XMS_ITS | Encounter Summary ---
:1945 Author Organization [facility] Address [address] [place] [address] Care Team Providers Name Role Phone Elsewhere, Pcp Primary Care Provider Unavailable Reason for Referral Outpatient (Routine) - Closed Specialty Diagnoses / Procedures Referred By Contact Refer red To Contact Diagnoses Preanesthetic Medical Exam Cardiac Vascular Disease Screening [facility] Procedures ECG 12 Lead C.N.P., M.S.N. [address] [place] [phone] Referral ID Status Reason Start Date Expiration Date Visits Requ ested Visits Authorized [id number] Closed 08/26/2020 08/26/2021 1 1 BIN CONVEYOR TENDER Reason for Visit Outpatient (Routine) - Closed Specialty Diagnoses / Procedures Referred By Contact Refer red To Contact General Surgery Diagnoses Primary Osteoarthritis Hip Left Sho Song [facility] CLAUDIA, C.N.P. [address] [place] [phone] Referral ID Status Reason Start Date Expiration Date Visits Requ ested Visits Authorized [id number] Closed 07/31/2020 07/31/2021 1 1 Encounter Details Date Type Department Care Team Description 08/26/2020 Telemedicine Preoperative Sho Song APRN, C.N.P. [address] [place] [phone] Preanesthetic Medical Exam (Primary Dx); [facility].N[facility]., M.S.N. 200 [place] [phone] Post Operative Nausea/Vomiting; [place], [place] Primary Osteoarthritis Hip L eft; 200 [facility] Hypertension Essential Prima ry; [place], [place] Hyperlipidemia ; [phone] Varicose Vein Lower Extremit y With Pain Bilateral; [phone] Osteoporosis; Loss Hearing Se nsorineural Asymmetrical; Tinnitus Bilate ral; Cardiac Vascula r Disease Screening Social History Tobacco Use Types Packs/Day Years [...] More than 4 times per year 01/28/2021 tenriism services? Do you belong to any clubs [...] have completed or the highest Armando, MEd, UNDERWEAR CUTTER, ALL) degree you have received? Sex Assigned at Date Recorded Female 07/26/2020 9:06 PM CDT documented as of this encounter H&P Notes Manjula Arizmendi, NITROGEN OPERATOR, C.N.P., M.S.N. - 08/26/2020 1:00 PM CST Preoperative Medical Evaluation Patient Name: Yamileth Sheikh Age: 75 y.o. Date of : 1945 Patient Address: [address] [place] [phone] Primary Care Provider: MARICARMEN PCP Referring Physician: Sho Song APRN, C.NJuana Pending Procedure: ARTHROPLASTY TOTAL HIP - DIRECT ANTERIOR, LEFT Surgeon: Ángel Apodaca M.D. HISTORY OF PRESENT ILLNESS This Consult was conducted via real-time audio/video technology. This is a 75 y.o. female who is here for preanesthetic medical examination prior to the planned procedure as listed above. The patient reports chronic, progressive left hip pain. The pain is constant and worsens with activity. At today's visit, the patient rates her pain 4/10. She's been taking ibuprofen prn. The following portions of the patient's history were reviewed and updated as appropriate: allergies,current medications, medical history, social history, surgical history and problem list. REVIEW OF SYSTEMS Cardiovascular: Positive for pain in the calf muscles when walking. Secondary to varicose veins Musculoskeletal: Positive for arthralgias, back pain, pain or stiffness in the joints and muscle pain/stiffness. LBP and left hip pain The following systems were negative: Constitutional, Skin, Eyes, ENT, Respiratory, GI, , Hematologic, Neuro, Psych PHYSICAL EXAM Physical exam will be performed by anesthesia the day of procedure. COVID-19 Patient was screened for symptoms of COVID. Patient denies shortness of breath, cough, fever, chills, sweats, severe vomiting, severe diarrhea, dizzy or lightheaded, loss of smell, loss of taste, headache, runny nose, nausea and chest pain. Patient was screened for COVID related acute LAD syndrome. Pt denies acute chest pain, acute chest pressure, acute chest tightness and acute dyspnea on exertion COVID-19 testing SARS PCR-- NOT SCHEDULED, SURGICAL TEAM NOTIFIED. ASSESSMENT/PLAN Patient medically optimized for planned procedure: Yes Surgery Specific Risk Classification: Low Risk / Elevated Risk: Intermediate Risk Further Recommendations: None Cardiac Risk Scoring: Tineo Cardiac Score: 0.19% RCRI Point Count: 0 RCRI Score: 0.4% DASI Calculations Telemedicine from 08/26/2020 in Preoperative Evaluation Center in [place], [place] Estimated V02 Peak 19.68 Estimated MET Level 5.62 The patient exceeding 4 METS. 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 For activity, she walks 4 blocks daily and reports no cardiopulmonary symptoms. Patient reports previous anesthesia related complications. PONV. Airway Hx (aka airway management): 05/2018, supraglottic airway, no complications. #1 Preanesthetic Medical Exam Labs available from 05/16/2020 and 07/01/2020. Will check an ECG preoperatively. Instructed patient tostop all supplements 1 week prior to surgery. She will hold vitamins the morning of surgery. #2 Post Operative Nausea/Vomiting Note multiple allergies, including to propofol. Patient states she had projective vomiting after receiving this. Patient also allergic to codeine and morphine, again with GI intolerance. Patient also states getting dizzy. #3 Primary Osteoarthritis Hip Left Instructed patient to avoid aspirin and ibuprofen-containing medications 1 week prior to surgery. The patient can take Tylenol, up to 3 g daily, if needed for pain. #4 Hypertension Essential Primary Continue irbesartan in the evening per home schedule. Echocardiogram from 04/2018 (Care Everywhere) showed EF 60-65% without RWMA's. Mild tricuspid insufficiency, but no significant valvular disease. #5 Hyperlipidemia Continue rosuvastatin in the evening per home schedule. 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 #7 Osteoporosis Will start alendronate postoperatively. #8 Loss Hearing Sensorineural Asymmetrical Wears bilateral hearing aids. #9 Tinnitus Bilateral I personally spent a total of 30 minutes in [id number]-[id number] time performing a review of the record and/or discussion with the patient/caregiver as described above. Consult conducted via real-time audio/video technology by Manjula Arizmendi APRN, C.N.Nancy, M.S.N. in [facility] to the patient in the patient's home. BIN CONVEYOR TENDER documented in this encounter Plan of Treatment Upcoming Encounters Date Type Specialty Care Team Description 09/08/2022 Procedure visit Aesthetic Medicine and Juanita Vaz, Surgery CLAUDIA, C.N.P. [address] [place] [phone] (Wo rk) 09/08/2022 Comprehensive Visit Aesthetic Medicine and Lucero Pritchard, Surgery Francesca, Ph.D. [address] [place] [phone] (Wo rk) documented as of this encounter Results ECG 12 Lead (09/10/2020 12:56 PM CHIP BIN CONVEYOR TENDER) P athologist Signature Ventricular Rate 58 BPM MUSE ECG/Min UT Interval 168 ms MUSE QRSD Interval 98 ms MUSE QT Interval 410 ms MUSE QTC Interval 402 ms MUSE P [place] 52 degrees MUSE R [place] 26 degrees MUSE T Wave [place] 47 degrees MUSE Specimen Anatomical Collection Method Collection Time Receive d Time (Source) Location / / Volume Laterality 09/10/2020 12:56 09/10/2020 1:00 PM CHIP BIN CONVEYOR TENDER PM CHIP BIN CONVEYOR TENDER Impressions MUSE - 09/10/2020 1:00 PM CHIP BIN CONVEYOR TENDER Sinus bradycardia Otherwise normal ECG When compared with ECG of 21-JUN-2018 11 :21, No significant change was found Reviewed by PRABHJOT Youngblood Narrative This result has an attachment that is no t available. Procedure Note Jamaal Glasgow Jr., M.D. - 09/10/2020For matting of this note might be different from the original. IMPRESSION: Sinus bradycardia Otherwise normal ECG When compared with ECG of 21-JUN-2018 11 :21, No significant change was found Reviewed by PRABHJOT Youngblood Manjula Arizmendi APRN C.N.P., M.S.N. ECG ORDERABLES Performing Organization Address City/State/ZIP Code Phon e Number MUSE MUSE NA documented in this encounter Visit Diagnoses Diagnosis Preanesthetic Medical Exam - Primary Post Operative Nausea/Vomiting Primary Osteoarthritis Hip Left Hypertension Essential Primary Hyperlipidemia Varicose Vein Lower Extremity With Pain Bilateral Osteoporosis Loss Hearing Sensorineural Asymmetrical Tinnitus Bilateral Cardiac Vascular Disease Screening documented in this encounter Care Teams Cafe Attendant Relationship Specialty Start Date End Date Elsewhere, Pcp PCP - General Internal Medicine 07/03/17 documented as of this encounter
--- OUTSIDE RECORDS SUMMARY | 2022-07-30 19:54 | XMS_ITS | Encounter Summary ---
:1945 Author Organization [facility] Address [address] [place] [phone] Care Team Providers Name Role Phone Elsewhere, Pcp Primary Care Provider Unavailable Reason for Referral Outpatient (Routine) - Closed Specialty Diagnoses / Procedures Referred By Contact Refer red To Contact Orthopedic Surgery Sho Song APRN, [place] C.N.P. [address] [place] [phone] Referral ID Status Reason Start Date Expiration Date Visits Requ ested Visits Authorized [id number] Closed 09/10/2020 09/10/2021 1 1 LING MACHINE OPERATOR Reason for Visit Reason Comments Pre-op Exam Outpatient (Routine) - Closed Specialty Diagnoses / Procedures Referred By Contact Refer red To Contact Orthopedic Surgery Sho Song APRN, [place] C.N.P. [address] [place] [phone] Referral ID Status Reason Start Date Expiration Date Visits Requ ested Visits Authorized [id number] Closed 07/31/2020 07/31/2021 1 1 Encounter Details Date Type Department Care Team Description 09/10/2020 Office Visit Department of Ángel Apodaca M.D. [address] [place] [phone] Arthroplasty Total Hip Replacement Statu s Post Left (Primary Dx); Orthopedic Surgery Sho Song, CLAUDIA, C.N.P. [address] [place] [phone] Primary Osteoarthritis Hip Left in [place], [place] [address] [place] [phone] Social History Tobacco Use Types Packs/Day Years [...] have completed or the highest Armando, MEd, QUALITY PROJECT MANAGER, ALL) degree you have received? Sex Assigned at Date Recorded Female 07/26/2020 9:06 PM CDT documented as of this encounter Last Filed Vital Signs Vital Sign Reading Time Taken Comments Blood Pressure - - Pulse - - Temperature - - Respiratory Rate - - Oxygen Saturation - - Inhaled Oxygen Concentration - - Weight 67.7 kg (149 lb 4 oz) 09/10/2020 9:25 AM LEVELING MACHINE OPERATOR Height 167.3 cm (5' 5.87) 09/10/2020 9:25 AM LEVELING MACHINE OPERATOR Body Mass Index 24.19 09/10/2020 9:25 AM LEVELING MACHINE OPERATOR documented in this encounter Progress Notes Sho Song, CLAUDIA, C.N.P. - 09/10/2020 9:15 AM CST SUBJECTIVE REASON FOR VISIT Yamileth Sheikh is a 75 y.o. female who presents to the office today for a preoperative consultation in anticipation of Left Total Hip Arthroplasty Direct Anterior Approach. Pain continues to botherher on a daily basis and limiting her activities. Pain reported: Site 1 Pain Score: 7, Pain Location: Hip, Pain Orientation: Left, (09/10/20 0918 : Rolo Jean) HISTORY OF PRESENT ILLNESS Yamileth Sheikh is a 75 y.o. female who presents to the office today for a preoperative consultation in anticipation of Left Total Hip Arthroplasty Direct Anterior Approach. she has failed a comprehensive non operative treatment program, including, but not limited to NSAIDS, activity modification, muscle strengthening, Tylenol, Ice and Heat,. Hip Function Analysis (left hip ) ?? Pain: moderate ?? Location of pain: groin ?? Occurrence of pain: at rest ?? Supports: none ?? Limp: slight ?? Distance walked: 1-3 blocks (15 minutes) ?? Stairs: yes, using handrail ?? Socks / tie shoes: yes, with difficulty ?? set up inspector an object from the floor: yes, with difficulty ?? Sitting: unable to sit for 1/2 hour ?? In and out of a car: yes, with difficulty ?? Rise from chair: able with ease (with arms) ?? Medications: yes, NSAIDs ?? Other LE joint involvement (Jey all that apply): right hip REVIEW OF SYSTEMS ?? Prior DVT / PE: no ?? Diabetes mellitus: no ?? Active tobacco use: no ?? Known bleeding disorder: no ?? Chronic anticoagulation: no ?? Immunosuppression: no PERTINENT PAST MEDICAL HISTORY #1 Arthroplasty Total Hip Replacement Status Post Left #2 Primary Osteoarthritis Hip Left #3 Hypertension Essential Primary #4 Osteoporosis #5 Hyperlipidemia #6 Varicose Vein Lower Extremity With Pain Bilateral #7 Tinnitus Bilateral #8 Loss Hearing Sensorineural Asymmetrical #9 Post Operative Nausea/Vomiting CURRENT MEDICATIONS Yamileth Sheikh has a current medication list which includes the following prescription(s): acetaminophen-codeine, calcium carbonate-mag hydroxid, cholecalciferol, acetaminophen, alendronate, amoxicillin, aspirin, celecoxib, co-enzyme q-10, estradiol, estradiol, hydrocortisone, irbesartan, lysine, o meprazole, ondansetron odt, oxycodone, rosuvastatin, sennosides-docusate sodium, tramadol, tretinoin, and valacyclovir hcl, and the following Facility- Administered Medications: sodium tetradecyl sulfate. OBJECTIVE Vital Signs height is 167.3 cm and weight is 67.7 kg. PHYSICAL EXAMINATION ?? General: Awake and alert. No acute distress. ?? Skin: intact ?? Neurologic: intact . ?? Vascular: intact ?? Extremities: pain with rom Hip Function Analysis (left hip ) Physical Examination ?? Full Extension: -10 degrees (flexion contracture) ?? Full Flexion: 80 degrees ?? Abduction:+10 degrees ?? Adduction: 0 degrees (neutral) ?? External Rotation: + 20 degrees (external rotation) ?? Internal Rotation: 0 degrees (neutral) ?? Positive Trendelenberg:no ?? Leg Length Discrepancy:left short ?? Amount of discrepancy in mm: 5 to 9 Orthopedic Physical Examination General Appearance She appears to be their stated age and healthy. Body habitus: normal. The patientis alert and oriented to person, place, and time. The patient's mood appears good. She seems reliable as a historian. The patient's affect is appropriate for situation. DIAGNOSTICS Labs: Recent Results (from the past 72 hour(s)) SARS Coronavirus-2 RNA, V Asymptomatic Collection Time: 09/09/20 10:34 AM Specimen: Nasopharynx; Varies Result Value SARS-CoV-2 Specimen Source Swab, Nasopharynx SARS CoV-2 RNA, TMA Undetected ?? No results found for this visit on 09/10/20 (from the past 336 hour(s)). ? Imaging: Bone on bone osteoarthritis left hip ASSESSMENT / PLAN #1 Primary Osteoarthritis Hip Left I discussed the clinical and radiographic findings with Yamileth Ramona HawkinsKori. she has failed a comprehensive non-operative treatment program as outlined in the history of present illness and discussion of my previous consult note. Ms. Sheikh and I feel that the pain and limitations on activities of daily living are bad enough to warrant surgical intervention. We discussed Right Total Hip Arthroplastythrough a Direct Anterior Approach. Ms. Sheikh would like to proceed. All questions answered. Informed Consent: The patient understands that the risks include but are not limited to , medical problems, infection, bleeding, blood clot problems, nerve damage, dislocation problems, leg length discrepancy, prosthetic loosening, wear or failure, or ongoing pain. Discussed the potential for overlapping surgery and how we manage that effectively. Discussed some of the potential risks of opioid medications and strategies used to reduce those risks. Answers for HPI/ROS submitted by the patient on 09/05/2020 No general issues: Yes No eye issues: Yes No ENT issues: Yes No heart issues: Yes No respiratory issues: Yes No GI issues: Yes No muscle/bone issues: Yes No skin issues: Yes No neurologic issues: Yes No mental health issues: Yes No blood/lymph issues: Yes No urinary/reproductive issues: Yes LING MACHINE OPERATOR documented in this encounter Plan of Treatment Upcoming Encounters Date Type Specialty Care Team Description 09/08/2022 Procedure visit Aesthetic Medicine and Juanita Vaz, Surgery BARKEEP, C.N.P. [address] [place] [phone] ([facility]) 09/08/2022 Comprehensive Visit Aesthetic Lucero Arita Surgery Francesca, Ph.D. [address] [place] [phone] ( rk) Scheduled Referrals Name Type Priority Associated Order Schedule Diagnoses Orthopedic Surgery Outpatient Referral Routine Ex pected: Post Op (clinic) 12/03/2020 (Approximate), Expires: 09/10/2023 documented as of this encounter Results DX Hip And Pelvis Left 4+ Views (12/05/2020 12:43 PM LEVELING MACHINE OPERATOR) Anatomical Region Laterality Modality Lower Extremity, Pelvis, Hip, Musculoskeletal RST LOS, Left Digital Radiography Musculoskeletal ARZ LOS, Muskuloskeletal FLA LOS Specimen (Source) Anatomical Collection Method Collection Time Re ceived Time Location / / Volume Laterality 12/05/2020 12:45 PM LEVELING MACHINE OPERATOR Impressions 12/05/2020 12:46 PM LEVELING MACHINE OPERATOR Left ALEKS. No radiographic evidence of loosening. Right ALEKS. Spinal stimulator over the left side of the sac rum. Degenerative arthritis lower lumbar spine, SI joints, and pubic symphysis. C alcified uterine fibroids. Narrative 12/05/2020 12:46 PM LEVELING MACHINE OPERATOR EXAM: ??DX HIP AND PELVIS LEFT 4+ VIEWS Procedure Note Eliane Amaro M.D. - 12/05/2020For matting of this note might be different from the original. EXAM: DX HIP AND PELVIS LEFT 4+ VIEWS IMPRESSION: Left ALEKS. No radiographic evidence of lo osening. Right ALEKS. Spinal stimulator over the left side of the sac rum. Degenerative arthritis lower lumbar spine, SI joints, and pubic symphysis. C alcified uterine fibroids. Sho Song APRN, C.N.P. IMG DIAGNOSTIC IMAGING PRO CEDURES documented in this encounter Visit Diagnoses Diagnosis Arthroplasty Total Hip Replacement Statu s Post Left - Primary Primary Osteoarthritis Hip Left Arthroplasty Total Hip Replacement Statu s Post Left documented in this encounter Care Teams Concrete Pipe Machine Operator Relationship Specialty Start Date End Date Elsewhere, Pcp PCP - General Internal Medicine 07/03/17 documented as of this encounter
--- OUTSIDE RECORDS SUMMARY | 2022-07-30 19:54 | XMS_ITS | Encounter Summary ---
:1945 Author Organization [facility] Address [address] [place] [address] Care Team Providers Name Role Phone Elsewhere, Pcp Primary Care Provider Unavailable Encounter Details Date Type Department Care Team Description 09/11/2020 Ancillary Procedure Department of Orthopedic Surgery Social [...] have completed or the highest Armando, MEd, IDENTIFICATION CLERK, ALL) degree you have received? Sex Assigned at Date Recorded Female 07/26/2020 9:06 PM CDT documented as of this encounter Plan of Treatment Upcoming Encounters Date Type Specialty Care Team Description 09/08/2022 Procedure visit Aesthetic Medicine and Juanita Vaz, Surgery DIRECTOR OF CONSULTING SERVICES, C.N.P. [address] [place] [phone] (Wo rk) 09/08/2022 Comprehensive Visit Aesthetic Lucero Arita, Surgery M.D., Ph.D. [address] [place] [phone] ([place] rk) documented as of this encounter Procedures Procedure Name Priority Date/Time Associated Comments Diagnosis ORTHOPEDIC SURGERY Routine 09/11/2020 9:15 AM Res ults for this IMAGE EXAM SEMICONDUCTOR ENGINEER procedure are i n the results section. documented in this encounter Results Non-Radiology Image-Orthopedic Surgery Image Exam (09/11/2020 9:15 AM SEMICONDUCTOR ENGINEER) Specimen (Source) Anatomical Collection Method Collection Time Re ceived Time Location / / Volume Laterality 09/11/2020 9:12 AM SEMICONDUCTOR ENGINEER Narrative [facility] - 09/11/2020 10:22 AM SEMICONDUCTOR ENGINEER This order has been created and auto-finalized [...] on filedocumented in this encounter Care Teams Wiring Inspector Relationship Specialty Start Date End Date Elsewhere, Pcp PCP - General Internal Medicine 07/03/17 documented as of this encounter
--- OUTSIDE RECORDS SUMMARY | 2022-07-30 19:54 | XMS_ITS | Encounter Summary ---
:1945 Author Organization [facility] Address [address] [place] [address] Care Team Providers Name Role Phone Elsewhere, Pcp Primary Care Provider Unavailable Encounter Details Date Type Department Care Team Description 09/10/2020 Orders Only Department of Orthopedic Keanu Gupta M.D. Surgery in [place], [facility] [address] [place], [place] [address] [facility] [address] [place] [address] [phone] Social History Tobacco Use Types Packs/Day Years [...] or relatives? How often do you attend zoroastrianism or More than 4 times per year 01/28/2021 yazdanism services? Do you belong to any clubs or Yes 01/28/2021 organizations such as zoroastrianism groups, unions, fraternal or athletic groups, or [...] have completed or the highest Armando, MEd, ERGONOMICS TECHNICIAN, ALL) degree you have received? Sex Assigned at Date Recorded Female 07/26/2020 9:06 PM CDT documented as of this encounter Plan of Treatment Upcoming Encounters Date Type Specialty Care Team Description 09/08/2022 Procedure visit Aesthetic Medicine and Juanita Vaz, Surgery CINETECHNICIAN, C.N.P. [address] [place] [phone] (Wo rk) 09/08/2022 Comprehensive Visit Aesthetic Medicine and Lucero Pritchard, Surgery M.DAnali, Ph.D. [address] [place] [phone] (Wo rk) documented as of this encounter Visit Diagnoses Not on filedocumented in this encounter Care Teams Program Arranger Relationship Specialty Start Date End Date Elsewhere, Pcp PCP - General Internal Medicine 07/03/17 documented as of this encounter
--- OUTSIDE RECORDS SUMMARY | 2022-07-30 19:55 | XMS_ITS | Encounter Summary ---
:1945 Author Organization [facility] Address [address] [place] [address] Care Team Providers Name Role Phone Elsewhere, Pcp Primary Care Provider Unavailable Encounter Details Date Type Department Care Team Description 05/24/2020 Clinical Communication Division of Merrill Harris Endocrinology in [place], [place] [address] [facility] [address] [place] [phone] Social History Tobacco Use Types Packs/Day Years [...] or relatives? How often do you attend taoist or More than 4 times per year 01/28/2021 confucianism services? Do you belong to any clubs or Yes 01/28/2021 organizations such as taoist groups, unions, fraternal or athletic groups, or [...] place to sleep or slept in a half-way (including now)? Education Answer Date Recorded What is the highest level of school Master's degree (e.g., Jody [place]monte, MS, 03/30/2019 you have completed or the highest Armando, MEd, RETURN AGENT AIRPORT, ALL) degree you have received? Sex Assigned at Date Recorded Female 07/26/2020 9:06 PM CDT documented as of this encounter Miscellaneous Notes Telephone Encounter - Merrill Harris M.D. - 05/24/2020 1:57 PM CDT Thanks for the update. Telephone Encounter - Kailee Gonzalez - 05/24/2020 1:42 PM CDT She called again, and now says she had a mammo here at [place] 06/08/2019 and then had one 09/06/2019 at [facility]. She said she is sending those records to you. Telephone Encounter - Merrill Harris M.D. - 05/24/2020 12:57 PM CDT Thanks for the note. Telephone Encounter - Kailee Gonzalez - 05/24/2020 12:[address] Harris- Patient wanted me to let you know her last mammo was 09/06/2019, she she wishes to wait on the mammo until this September. Thank you Juanis [phone] documented in this encounter Plan of Treatment Upcoming Encounters Date Type Specialty Care Team Description 09/08/2022 Procedure visit Aesthetic Medicine and Juanita Vaz, Surgery OBSERVATORY DIRECTOR, C.N.P. [address] [place] [address] (Wo rk) 09/08/2022 Comprehensive Visit Aesthetic Medicine Lucero Mckeon, Surgery Francesca, Ph.D. [address] [place] [address] (Wo rk) documented as of this encounter Visit Diagnoses Not on filedocumented in this encounter Care Teams Survey Instrument Operator Relationship Specialty Start Date End Date Elsewhere, Pcp PCP - General Internal Medicine 07/03/17 documented as of this encounter
--- OUTSIDE RECORDS SUMMARY | 2022-07-30 19:55 | XMS_ITS | Encounter Summary ---
:1945 Author Organization [facility] Address [address] [place] [address] Care Team Providers Name Role Phone Elsewhere, Pcp Primary Care Provider Unavailable Reason for Referral Outpatient (Routine) - Closed Specialty Diagnoses / Procedures Referred By Contact Refer red To Contact Ophthalmology Diagnoses Dry Eye Syndrome Bilateral Merrill Harris M.D. [facility] [address] [place] [address] Referral ID Status Reason Start Date Expiration Date Visits V isits Requested Authorized [id number] Closed Specialty 07/19/2020 07/19/2021 1 1 Services Required Encounter Details Date Type Department Care Team Description 07/19/2020 Orders Only Division of Merrill Harris, Dry Eye Syn drome Endocrinology in M.DAnali Bilateral (Primary [place], [place] 200 [facility]) [address] [place] [phone] [phone] Social History Tobacco Use Types Packs/Day Years [...] or relatives? How often do you attend alevism or More than 4 times per year 01/28/2021 nondenominational services? Do you belong to any clubs or Yes 01/28/2021 organizations such as alevism groups, unions, fraternal or athletic groups, or [...] place to sleep or slept in a residential (including now)? Education Answer Date Recorded What is the highest level of school Master's degree (e.g., M A, MS, 03/30/2019 you have completed or the highest Armando, MEd, ATM MANAGER, ALL) degree you have received? Sex Assigned at Date Recorded Female 07/26/2020 9:06 PM CDT documented as of this encounter Plan of Treatment Upcoming Encounters Date Type Specialty Care Team Description 09/08/2022 Procedure visit Aesthetic Medicine and Juanita Vaz, Surgery FLOOR BROKER, C.N.P. [address] [place] [phone] (Wo rk) 09/08/2022 Comprehensive Visit Aesthetic Medicine and Lucero Pritchard, Surgery M.D., Ph.D. [address] [place] [phone] (Wo rk) documented as of this encounter Results Ophthalmology - General consult (clinic) (01/28/2021 2:49 PM CDT) Merrill Harris M.D. OUTPATIENT REFERRAL ORDERABL ES documented in this encounter Visit Diagnoses Diagnosis Dry Eye Syndrome Bilateral - Primary documented in this encounter Care Teams Rag Shredder Relationship Specialty Start Date End Date Elsewhere, Pcp PCP - General Internal Medicine 07/03/17 documented as of this encounter
--- OUTSIDE RECORDS SUMMARY | 2022-07-30 19:55 | XMS_ITS | Encounter Summary ---
:1945 Author Organization [facility] Address [address] [place] [address] Care Team Providers Name Role Phone Elsewhere, Pcp Primary Care Provider Unavailable Reason for Referral Outpatient (Routine) - Closed Specialty Diagnoses / Procedures Referred By Contact Refer red To Contact Endocrinology Merrill Harris M.D . [facility] [address] [place] [address] Referral ID Status Reason Start Date Expiration Date Visits Requ ested Visits Authorized [id number] Closed 05/24/2020 05/24/2021 1 1 Scheduling Instructions Please schedule a 30 minute appointment. Outpatient (Routine) - Closed Specialty Diagnoses / Procedures Referred By Contact Refer red To Contact Diagnoses Cancer Colon Family History Screening Cancer Colon Merrill Harris M.D. [facility] Procedures Colonoscopy [address] [place] [phone] Referral ID Status Reason Start Date Expiration Date Visits Requ ested Visits Authorized [id number] Closed 05/24/2020 05/24/2021 1 1 Outpatient (Routine) - Closed Specialty Diagnoses / Procedures Referred By Contact Refer red To Contact Diagnoses Osteoporosis Merrill Harris M.D. [facility] Procedures BMD Bone Density Spine Hips [address] [place], [place] [address] Referral ID Status Reason Start Date Expiration Date Visits Requ ested Visits Authorized [id number] Closed 05/24/2020 05/24/2021 1 1 Outpatient (Routine) - Closed Specialty Diagnoses / Procedures Referred By Contact Refer red To Contact Diagnoses Screening Mammogram Breast Cancer Merrill Harris M.D. [facility] Procedures BI Breast Screening Bilateral with Tomosynthesis [address] [place] [address] Referral ID Status Reason Start Date Expiration Date Visits Requ ested Visits Authorized [id number] Closed 05/24/2020 05/24/2021 1 1 Encounter Details Date Type Department Care Team Description 05/24/2020 Orders Only Division of Merrill Harris Osteoporosi s (Primary Dx); Endocrinology in M.Norma Leukocytosis; [place], [place] [address] [facility] Screening Mammogram Breast Cancer; [address] [place], [place] Cancer Colon Family History; [place] [phone] Screening Cancer Colon [phone] Social History Tobacco Use Types Packs/Day Years [...] or relatives? How often do you attend synagogue or More than 4 times per year 01/28/2021 adventism services? Do you belong to any clubs or Yes 01/28/2021 organizations such as synagogue groups, unions, fraternal or athletic groups, or [...] have completed or the highest Armando, MEd, REPEATER CHIEF, ALL) degree you have received? Sex Assigned at Date Recorded Female 07/26/2020 9:06 PM CDT documented as of this encounter Plan of Treatment Upcoming Encounters Date Type Specialty Care Team Description 09/08/2022 Procedure visit Aesthetic Medicine and Juanita Vaz, Surgery MICA BUILDER, C.N.P. [address] [place] [phone] (Wo rk) 09/08/2022 Comprehensive Visit Aesthetic Medicine Lucero Mckeon, Surgery M.D., Ph.D. [address] [place] [phone] (Charlotte bentley) Scheduled Referrals Name Type Priority Associated Order Schedule Diagnoses Endocrinology office Outpatient Referral Routine Expected: visit (clinic) 06/10/2020 (Approximate), Expires: 05/24/2021 documented as of this encounter Results BI Breast Screening Bilateral with Tomosynthesis (09/10/2020 2:34 PM SCRAPPER) Anatomical Region Laterality Modality Breast, Breast Imaging RST LOS, Breast Imaging ARZ [facility], [facility] Bilateral Mammography Imaging FLA [facility] Specimen (Source) Anatomical Collection Method Collection Time Re ceived Time Location / / Volume Laterality 09/10/2020 3:31 PM SCRAPPER Impressions 09/10/2020 3:33 PM SCRAPPER Benign. RECOMMENDATION: ??Annual Screening Mammo gram ASSESSMENT: ??BI-RADS: 2: Benign. Narrative 09/10/2020 3:33 PM SCRAPPER EXAM: ??BI BREAST SCREENING BILATERAL WITH TOMOSYNTHESIS [...] Procedure Note Nanette Shah M.D. - 09/10/2020Formatti lucy of this note might be different from the original. EXAM: BI BREAST SCREENING BILATERAL WITH TOMOSYNTHESIS Current study was evaluated with a Hand Talku ter Aided Detection (CAD) system. INDICATION: Screening mammogram. COMPARISON: Prior exam(s) were available and reviewed for comparison. DENSITY: b. There are scattered areas of fibroglandular density. FINDINGS: No findings of malignancy. No significant change since prior exam.Postoperative changes from reductio n mammoplasty. IMPRESSION: Benign. RECOMMENDATION: Annual Screening Mammogr am ASSESSMENT: BI-RADS: 2: Benign. Merrill Harris M.D. IMG BI PROCEDURES BMD Bone Density Spine Hips (07/01/2020 1:34 PM CDT) Anatomical Region Laterality Modality Hip, Lumbar Spine, Nuclear Medicine RST LOS, N/A Radiographic Imaging Musculoskeletal ARZ LOS, Muskuloskeletal FLA LOS Specimen (Source) Anatomical Collection Method Collection Time Re ceived Time Location / / Volume Laterality 07/01/2020 3:12 PM CDT Impressions 07/01/2020 3:13 PM CDT Osteoporosis Narrative 07/01/2020 3:13 PM CDT EXAM: ??BMD BONE DENSITY SPINE HIPS COMPARISON: Serial Comparisons Left Total Hip results: ?06/11/2016 ?BMD: ??0.775 g/cm( sq), T Score: -1.9 ?07/01/2020 ?BMD: ??0.648 g/cm( sq), T Score: -2.9 ?Change vs. Previous (difference): ? -0.127 g/cm(sq) ?Change vs. Previous (%): ??-16.4% ?The least significant change in BM D for the Total Hip ?is 0.036 g/cm(sq) ?The absolute BMD change from basel ine, ??0.127g/cm(sq), is ?greater than the least significant change. Spine results: ?06/11/2016 ?BMD: ??0.993 g/cm( sq), T Score: -1.5 ?07/01/2020 ?BMD: ??0.901 g/cm( sq), T Score: -2.3 ?Change vs. Previous (difference): ? -0.092 g/cm(sq) ?Change vs. Previous (%): ??-9.3% ?The least significant change in BM D for the Spine is 0.041 g/cm(sq) ?The absolute BMD change from [facility] [place], ??0.092g/cm(sq), is ?greater than the least significant change. FINDINGS: Left Hip [single scan]: ?Femur Neck: BMD = ??0.778 g/cm (sq ) ?T-score = -1.9 ?Z-score = ? ?0.0 ?Total Hip: BMD = ??0.648 g/cm (sq) ?T-score = -2.9 ?Z-score = - 1.2 Lumbar Spine ??[single scan]: ?L1: BMD = 0.887 g/cm (sq), T-score =-2.1, Z-score =-0.3 ?L2: BMD = 0.913 g/cm (sq), T-score =-2.4, Z-score =-0.7 ?Total Lumbar Spine: BMD = ??0.901 g/cm (sq) ?T-score = -2.3 ?Z-score = - 0.5 Trabecular Bone Scores: ?L1-L2: TBS = 1.134 Please note: A more comprehensive DXA re port, including images and graphs, is available in [employer]. ?In the absence of other causes of low BMD or demonstrated skeletal ?fragility, osteoporosis may be destinee gnosed in post-menopausal ? women when the T-score i s at or below -2.5 as defined by ?the WHO. Osteopenia is present at T-scores between -1 and -2.5 and ?normal BMD when T-score is at or a savanna -1.0. The diagnosis in ?pre-menopausal women and men can b e based on low bone mass or ?evidence of skeletal fragility in the appropriate clinical setting. Right ALEKS. Patient does not meet ISCD guidelines fo r FRAX calculations. Procedure Note Tiffany Oglesby M.D. - 07/01/2020Formattlexi ayala of this note might be different from the original. EXAM: BMD BONE DENSITY SPINE HIPS COMPARISON: Serial Comparisons Left Total Hip results: 06/11/2016 BMD: 0.775 g/cm(sq), T Score : -1.9 07/01/2020 BMD: 0.648 g/cm(sq), T Score : -2.9 Change vs. Previous (difference): -0.12 7 g/cm(sq) Change vs. Previous (%): -16.4% The least significant change in BMD for the Total Hip is 0.036 g/cm(sq) The absolute BMD change from baseline, 0.127g/cm(sq), is greater than the least significant dye ge. Spine results: 06/11/2016 BMD: 0.993 g/cm(sq), T Score : -1.5 07/01/2020 BMD: 0.901 g/cm(sq), T Score : -2.3 Change vs. Previous (difference): -0.09 2 g/cm(sq) Change vs. Previous (%): -9.3% The least significant change in BMD for the Spine is 0.041 g/cm(sq) The absolute BMD change from baseline, 0.092g/cm(sq), is greater than the least significant dye ge. FINDINGS: Left Hip [single scan]: Femur Neck: BMD = 0.778 g/cm (sq) T-score = -1.9 Z-score = 0.0 Total Hip: BMD = 0.648 g/cm (sq) T-score = -2.9 Z-score = -1.2 Lumbar Spine [single scan]: L1: BMD = 0.887 g/cm (sq), T-score =-2. 1, Z-score =-0.3 L2: BMD = 0.913 g/cm (sq), T-score =-2. 4, Z-score =-0.7 Total Lumbar Spine: BMD = 0.901 g/cm (s q) T-score = -2.3 Z-score = -0.5 Trabecular Bone Scores: L1-L2: TBS = 1.134 Please note: A more comprehensive DXA re port, including images and graphs, is available in [employer]. In the absence of other causes of low B MD or demonstrated skeletal fragility, osteoporosis may be diagnose d in post-menopausal women when the T-score is at or below -2.5 as defined by the WHO. Osteopenia is present at T-sco res between -1 and -2.5 and normal BMD when T-score is at or above -1.0. The diagnosis in pre-menopausal women and men can be bas ed on low bone mass or evidence of skeletal fragility in the a [facility] clinical setting. Right ALEKS. Patient does not meet ISCD guidelines fo r FRAX calculations. IMPRESSION: Osteoporosis Merrill WARD DXA PROCEDURES (ABNORMAL) CBC with Differential, Blood (07/01/2020 11:28 AM CDT) [facility] Time Signature Hemoglobin 13.8 11.6 - 07/01/2020 DTL 15.0 g/dL 12:04 PM CDT Hematocrit 42.8 35.5 - 07/01/2020 DTL 44.9 % 12:04 PM CDT Erythrocytes 4.43 3.92 - 07/01/2020 DTL 5.13 12:04 PM CDT x10(12)/L MCV 96.6 78.2 - 07/01/2020 DTL 97.9 fL 12:04 PM CDT RBC Distrib Width 12.9 12.2 - 07/01/2020 DTL 16.1 % 12:04 PM CDT Platelet Count 140 (L) 157 - 371 07/01/2020 DTL x10(9)/L 12:04 PM CDT Leukocytes 5.2 3.4 - 9.6 07/01/2020 DTL x10(9)/L 12:04 PM CDT Neutrophils 3.41 1.56 - 07/01/2020 DTL 6.45 12:04 PM CDT x10(9)/L Lymphocytes 1.37 0.95 - 07/01/2020 DTL 3.07 12:04 PM CDT x10(9)/L Monocytes 0.30 0.26 - 07/01/2020 DTL 0.81 12:04 PM CDT x10(9)/L Eosinophils 0.07 0.03 - 07/01/2020 DTL 0.48 12:04 PM CDT x10(9)/L Basophils <0.03 0.01 - 07/01/2020 DTL 0.08 12:04 PM CDT x10(9)/L Specimen Anatomical Collection Method Collection Time Receive d Time (Source) Location / / Volume Laterality Blood (Blood, 07/01/2020 11:28 07/01/2020 Venous) AM CDT 11:55 AM CDT Merrill Harris M.D. LAB BLOOD ADD-ON Performing Organization Address City/State/ZIP Code Phon e Number [facility] - [address] [place], [place] [address] [facility] [address] Laboratories-[facility] [address] documented in this encounter Visit Diagnoses Diagnosis Osteoporosis - Primary Leukocytosis Screening Mammogram Breast Cancer Cancer Colon Family History Screening Cancer Colon Osteoporosis Screening Mammogram Breast Cancer documented in this encounter Care Teams Transplant Registered Nurse Relationship Specialty Start Date End Date Elsewhere, Pcp PCP - General Internal Medicine 07/03/17 documented as of this encounter
--- OUTSIDE RECORDS SUMMARY | 2022-07-30 19:55 | XMS_ITS | Encounter Summary ---
:1945 Author Organization [facility] Address [address] [place] [address] Care Team Providers Name Role Phone Elsewhere, Pcp Primary Care Provider Unavailable Reason for Referral Outpatient (Routine) - Closed Specialty Diagnoses / Procedures Referred By Contact Refer red To Contact Vascular Medicine Juanita Vaz APRN, [facility] C.N.P. [address] [place] [phone] Referral ID Status Reason Start Date Expiration Date Visits Requ ested Visits Authorized [id number] Closed 06/24/2020 06/24/2021 1 1 Outpatient (Routine) - Closed Specialty Diagnoses / Procedures Referred By Contact Refer red To Contact Diagnoses Varicose Vein Lower Extremity With Pain Bilateral Venous Insufficiency Chronic Peripheral Juanita Vaz APRN, [facility] on Procedures US Lower Extremity Venous Insufficiency Bilateral C.N.P. [address] [place] [phone] Referral ID Status Reason Start Date Expiration Date Visits Requ ested Visits Authorized [id number] Closed 06/24/2020 06/24/2021 1 1 Encounter Details Date Type Department Care Team Description 06/24/2020 Orders Only Department of Vaz, Juanita R, Venous In sufficiency Chronic Peripheral; Vascular Medicine in LIBRARY MEDIA ASSISTANT, C.N.P . Varicose Vein Lower Extremity With Pain Bilateral [place], [place] 200 [facility] [address] [place] [phone] Social History Tobacco Use Types Packs/Day Years [...] or relatives? How often do you attend adventism or More than 4 times per year 01/28/2021 orthodox services? Do you belong to any clubs or Yes 01/28/2021 organizations such as adventism groups, unions, fraternal or athletic groups, or [...] place to sleep or slept in a nursing home (including now)? Education Answer Date Recorded What is the highest level of school Master's degree (e.g., M A, MS, 03/30/2019 you have completed or the highest Armando, MEd, CUSTOMER SUCCESS ASSOCIATE, ALL) degree you have received? Sex Assigned at Date Recorded Female 07/26/2020 9:06 PM CDT documented as of this encounter Plan of Treatment Upcoming Encounters Date Type Specialty Care Team Description 09/08/2022 Procedure visit Aesthetic Medicine and Juanita Vaz, Surgery LIBRARY MEDIA ASSISTANT, C.N.P. 200 [place] [phone] (Charlotte bentley) 09/08/2022 Comprehensive Visit Aesthetic Medicine Lucero Mckeon, Surgery M.DAnali, Ph.D. 200 [place] [phone] (Charlotte bentley) Scheduled Referrals Name Type Priority Associated Diagnoses Order [facility] Vascular Medicine Outpatient Referral Routine Exp ected: office visit 07/30/2020 (clinic) (Approximate), Expires: 06/24/2023 documented as of this encounter Results US Lower Extremity Venous [...] detail in the full report. Juanita Vaz APRN C.N.P. IMG US PROCEDURES documented in this encounter Visit Diagnoses Diagnosis Venous Insufficiency Chronic Peripheral Varicose Vein Lower Extremity With Pain Bilateral Varicose Vein Lower Extremity With Pain Bilateral Venous Insufficiency Chronic Peripheral documented in this encounter Care Teams Reconditioning Associate Relationship Specialty Start Date End Date Elsewhere, Pcp PCP - General Internal Medicine 07/03/17 documented as of this encounter
--- OUTSIDE RECORDS SUMMARY | 2022-07-30 19:55 | XMS_ITS | Encounter Summary ---
:1945 Author Organization [facility] Address [address] [place] [address] Care Team Providers Name Role Phone Elsewhere, Pcp Primary Care Provider Unavailable Encounter Details Date Type Department Care Team Description 07/01/2020 Hospital Encounter Department of Merrill Harris Leuk ocytosis Laboratory Medicine and M.Norma Pathology, [address] [phone] [place] [address] [place] [address] Social History Tobacco Use Types Packs/Day Years [...] or relatives? How often do you attend holiness or More than 4 times per year 01/28/2021 yazidism services? Do you belong to any clubs or Yes 01/28/2021 organizations such as holiness groups, unions, fraternal or athletic groups, or [...] have completed or the highest Armando, MEd, AUCTION ASSISTANT, ALL) degree you have received? Sex [...] tablet by 0 ORAL) mouth as needed. ciclopirox (LOPROX) 0.77 Apply 1 application 0 08/22/2020 % cream topically 2 (two) times a day. To toenails. omega-3 acid ethyl esters Take 1 capsule by 0 09/10/2020 (LOVAZA) 1 gram capsule mouth as needed. documented as of this encounter Plan of Treatment Upcoming Encounters Date Type Specialty Care Team Description 09/08/2022 Procedure visit Aesthetic Medicine and Juanita Vaz, Surgery PUBLIC POLICY ANALYST, C.N.P. [address] [place] [address] (Wo rk) 09/08/2022 Comprehensive Visit [facility] and Lucero Pritchard Surgery M.D., Ph.D. [address] [place] [address] (Wo rk) documented as of this encounter Procedures Procedure Name Priority Date/Time Associated Diagnosis Comme nts CBC WITH Routine 07/01/2020 11:28 Leukocytosis Results for this DIFFERENTIAL, B AM CDT procedure ar e in the results section. documented in this encounter Results (ABNORMAL) CBC with Differential, Blood (07/01/2020 11:28 AM CDT) [facility] Method Time Signature Hemoglobin 13.8 11.6 - 07/01/2020 [...] Organization Address City/State/ZIP Code Phon e Number [facility] - [address] [place], [place] [address] [facility] [place] [address] Laboratories-[facility] [address] documented in this encounter Visit Diagnoses Diagnosis Leukocytosis documented in this encounter Care Teams Medical Professionals Relationship Specialty Start Date End Date Elsewhere, Pcp PCP - General Internal Medicine 07/03/17 documented as of this encounter
--- OUTSIDE RECORDS SUMMARY | 2022-07-30 19:55 | XMS_ITS | Encounter Summary ---
:1945 Author Organization [facility] Address [address] [place] [address] Care Team Providers Name Role Phone Elsewhere, Pcp Primary Care Provider Unavailable Reason for Visit Reason Comments COVID Inquiry Encounter Details Date Type Department Care Team Description 05/15/2020 Clinical Communication Division of Merrill Harris Inquiry Endocrinology in [place], [place]. [place], [place] [address] [place] [address] [address] [place] [phone] Social History Tobacco Use Types Packs/Day Years [...] More than 4 times per year 01/28/2021 yarsanism services? Do you belong to any clubs [...] place to sleep or slept in a skilled nursing (including now)? Education Answer Date Recorded What is the highest level of school Master's degree (e.g., M A, MS, 03/30/2019 you have completed or the highest Armando, MEd, PRECISION OPTICS TECHNICIAN, ALL) degree you have received? Sex Assigned at Date Recorded Female 07/26/2020 9:06 PM CDT documented as of this encounter Miscellaneous Notes Telephone Encounter - Margot Ty - 05/15/2020 9:50 AM CDT ([facility] and [facility] locations only: If the patient is not having symptoms and is requesting COVID-19 Nasal Swab testing only, use the process listed in the COVID-19 Patient Requesting COVID PCR Test OTG COVID-19 [place] Patient Requesting COVID PCR Test). 1. Do you have a pending COVID test because you had symptoms or exposure to someone with COVID or you have tested positive for COVID in the last 30 days? no 2. In the past 14 days, do you, anyone in the household, or anyone you have had prolonged exposure have any of the following? a. Fever greater than or equal to 37.8 C (100.0 F)? no b. New symptoms (Specifically: headache, cough, shortness of breath, respiratory distress, sore throat, diarrhea, nausea, vomiting, chills and repeated shaking with chills, myalgia's (muscle aches), loss of smell, or change or loss of taste sensation)? no c. Had close contact with a patient with known or possible COVID-19 in the last 14 days? no documented in this encounter Plan of Treatment Upcoming Encounters Date Type Specialty Care Team Description 09/08/2022 Procedure visit Aesthetic Medicine and Juanita Vaz, Surgery TRACK SUPERVISOR, C.N.P. [address] [place] [phone] (Charlotte bentley) 09/08/2022 Comprehensive Visit Aesthetic Medicine and Lucero Pritchard, Surgery M.DAnali, Ph.D. 200 [place] [phone] (Charlotte bentley) documented as of this encounter Visit Diagnoses Not on filedocumented in this encounter Care Teams Human Resources Leader Relationship Specialty Start Date End Date Elsewhere, Pcp PCP - General Internal Medicine 07/03/17 documented as of this encounter
--- OUTSIDE RECORDS SUMMARY | 2022-07-30 19:55 | XMS_ITS | Encounter Summary ---
:1945 Author Organization [facility] Address [address] [place] [address] Care Team Providers Name Role Phone Elsewhere, Pcp Primary Care Provider Unavailable Reason for Visit Outpatient (Routine) - Closed Specialty Diagnoses / Procedures Referred By Contact Refer red To Contact Endocrinology Diagnoses Osteoporosis Merrill Harris M.D. [place] [address] [place] [phone] Referral ID Status Reason Start Date Expiration Date Visits Requ ested Visits Authorized [id number] Closed 07/25/2019 07/24/2020 1 1 Encounter Details Date Type Department Care Team Description 05/16/2020 Office Visit Division of Merrill Harris Leukocytosis ( Primary Dx); Endocrinology javier Perera M.D. Osteoporosis; [place], [place] [address] [facility] Osteoarthritis [address] [place] [phone] Social History Tobacco Use Types Packs/Day Years [...] or relatives? How often do you attend taoism or More than 4 times per year 01/28/2021 islam services? Do you belong to any clubs or Yes 01/28/2021 organizations such as taoism groups, unions, fraternal or athletic groups, or [...] have completed or the highest Armando, MEd, REGISTRY NP, ALL) degree you have received? Sex Assigned at Date Recorded Female 07/26/2020 9:06 PM CDT documented as of this encounter Last Filed Vital Signs Vital Sign Reading Time Taken Comments Blood Pressure 124/71 05/16/2020 3:17 PM CDT Pulse 65 05/16/2020 3:17 PM CDT Temperature - - Respiratory Rate - - Oxygen Saturation - - Inhaled Oxygen Concentration - - Weight 63.4 kg (139 lb 12.4 oz) 05/16/2020 3:17 PM CDT Height 166.9 cm (5' 5.71) 05/16/2020 3:17 PM CDT Body Mass Index 22.76 05/16/2020 3:17 PM CDT documented in this encounter Progress Notes Merrill Harris M.D. - 05/16/2020 3:30 PM CDT SUBJECTIVE CHIEF COMPLAINT/REASON FOR VISIT Osteoporosis. HISTORY OF PRESENT ILLNESS Ms. Sheikh had a bone density study at the [facility] in [place] on 11/23/2019. According to the bone density report, Ms. Sheikh had a 58.5% decrease in the density of her left hip between 04/13/2018 and 11/23/2019 compared to a 9.5% decrease during the preceding 10 years. In contrast, the rate of bone loss at the 33% radius was constant [id number] and 2019. It was also reported that the spine density at L1-L2 increased 11.1% between 11/20/2013 and 04/13/2018 and then decreased 11.8% between 04/13/2018 and 11/23/2019 even though Ms. Sheikh didnot receive treatment for osteoporosis during this time interval. Ms. Sheikh has had fractures of a finger and thumb, but has not had fractures at other skeletal sites and does not have compression fractures on her spine films. Risk factors for osteoporosis includeher postmenopausal status and family history of osteoporosis. Ms. Sheikh has advance degenerative arthritis of her left hip, but has been walking a 1 1/2 miles a day. Current Outpatient Medications Medication Sig Dispense Refill ??? cholecalciferol, vitamin D3, 1,000 Unit tablet Take 1 tablet by mouth daily. ??? ciclopirox (LOPROX) 0.77 % cream Apply 1 application topically 2 (two) times a day. To toenails. ??? co-enzyme Q-10 (COQ-10) 100 mg capsule Take 100 mg by mouth daily. ??? estradiol (ESTRACE) 0.1 mg/g (0.01%) vaginal cream Insert 1 application into the vagina as directed. 3 times a week on the labia ??? estradiol (ESTRING) 2 mg (7.5 mcg /24 hour) vaginal ring Insert 1 application into the vagina asdirected. Every 3 months ??? hydrocortisone (ANUSOL-HC) 2.5 % rectal cream Insert into the rectum as needed. ??? irbesartan (AVAPRO) 150 mg tablet Take 150 mg by mouth daily. ??? L-LYSINE ORAL Take 1 tablet by mouth daily. 500 mg ??? omega-3 acid ethyl esters (LOVAZA) 1 gram capsule Take 1 capsule by mouth as needed. ??? rosuvastatin (CRESTOR) 5 mg tablet Take 5 mg by mouth daily. ??? tretinoin (RETIN-A) 0.05 % cream Apply 1 application topically at bedtime. 10 ??? valacyclovir HCl (VALTREX ORAL) Take 1 tablet by mouth as needed. Current Facility-Administered Medications Medication Dose Route Frequency Provider Last Rate Last Dose ??? sodium tetradecyl sulfate 1 % (10 mg/mL) injection 20 mg (SOTRADECOL) 2 mL intravenous Once Juanita Vaz, AUTOGRAPHER, C.N.P. Allergies Allergen Reactions ??? Codeine GI intolerance ??? Morphine GI intolerance ??? Nickel Rash ??? Propofol GI intolerance ??? Adhesive Tape-Silicones Rash ??? Latex Rash ??? Perindopril Tinnitus and Cough Other reaction(s): Cough ??? Tramadol GI intolerance OBJECTIVE PHYSICAL EXAMINATION General: Appears comfortable. Skin: Normal. Eyes: Normal sclerae. Gait : Antalgic. ASSESSMENT / PLAN #1 Osteoporosis Ms. Sheikh has a low bone density, but has not had fragility fractures. A repeat bone density study was requested because I have concerns about the accuracy of the findingson the outside study. I will discuss treatment options with Mr. Sheikh when the results of the laboratory studies and repeat bone density are available. #2 Advanced degenerative arthritis left hip, status post right total hip arthroplasty Ms. Sheikh plans to have a left total hip arthroplasty in the near future. The timing of the surgery will impact the treatment plan for her osteoporosis. Merrill Harris M.D. CT CT Job ID: [id number] documented in this encounter Plan of Treatment Upcoming Encounters Date Type Specialty Care Team Description 09/08/2022 Procedure visit Aesthetic Medicine and Juanita Vaz, Surgery AUTOGRAPHER, C.N.P. [address] [place] [phone] (Charlotte bentley) 09/08/2022 Comprehensive Visit Aesthetic Medicine and Lucero Pritchard Surgery M.D., Ph.D. [address] [place] [phone] (Charlotte bentley) documented as of this encounter Results (ABNORMAL) Morphology Evaluation (Special Smear) (05/16/2020 4:14 PM CDT) [facility] Method Time Signature Neutrophilic Segs 90 (H) 50 - 75 % 05/16/2020 [facility] 5:54 PM CDT Lymphocytes 5 (L) 18 - 42 % 05/16/2020 [facility] 5:54 PM CDT Monocytes 5 2 - 11 % 05/16/2020 [facility] 5:54 PM CDT Interpretation SeeComment 05/16/2020 [facility] 5:54 PM CDT Comment: Peripheral blood smear reviewed ; no diagnostic abnormalities are seen. Reviewed by: Tech 05/16/2020 5:54 PM CDT [facility] Specimen Anatomical Collection Method Collection Time Receive d Time (Source) Location / / Volume Laterality Blood (Blood, 05/16/2020 4:14 PM 05/16/20 20 4:49 Venous) CDT PM CDT Merrill Harris M.D. LAB BLOOD ADD-ON Performing Organization Address City/State/ZIP Code Phon e Number [facility] - [address] [place], [place] [address] [place] [address] [facility] [address] documented in this encounter Visit Diagnoses Diagnosis Leukocytosis - Primary Osteoporosis Osteoarthritis documented in this encounter Care Teams Supervisor Fabrication And Assembly Relationship Specialty Start Date End Date Elsewhere, Pcp PCP - General Internal Medicine 07/03/17 documented as of this encounter
--- OUTSIDE RECORDS SUMMARY | 2022-07-30 19:55 | XMS_ITS | Encounter Summary ---
:1945 Author Organization [facility] Address [address] [place] [address] Care Team Providers Name Role Phone Elsewhere, Pcp Primary Care Provider Unavailable Reason for Visit Reason Comments Medication Question colonoscopy Encounter Details Date Type Department Care Team Description 06/17/2020 Clinical Division of Merrill Harris Medication Communication Endocrinology in [place]. Question [place], [place] [address] [facility] (colonoscopy) [address] [place] [phone] Social History Tobacco Use Types Packs/Day Years [...] or relatives? How often do you attend roman catholic or More than 4 times per year 01/28/2021 confucianism services? Do you belong to any clubs or Yes 01/28/2021 organizations such as roman catholic groups, unions, fraternal or athletic groups, or [...] have completed or the highest Armando, MEd, GAME MODERATOR, ALL) degree you have received? Sex Assigned at Date Recorded Female 07/26/2020 9:06 PM CDT documented as of this encounter Miscellaneous Notes Telephone Encounter - Lucero Abdi R.N. - 06/18/2020 9:09 AM CDT Prescription renewal request did not meet nurse protocol because: medication was not prescribed by aprovider within the Division within the past 18 months. Protocol utilized: Prescription Renewal Request for Medications: Division of Endocrinology, Diabetes, Metabolism and Nutrition. Telephone Encounter - Lisa Craig - 06/17/2020 10:16 AM CDT Patient called. Reason for Calling: colonoscopy prep medication Detailed Message:Ms. Sheikh has asked that the prep medication for her 07/01 colonoscopy be sent toa pharmacy in [place], [place]. This pharmacy has been added to her preferred pharmacies list. [facility] Best time to be reached: No call back needed. Ms. Sheikh just asked that the prep medicine be at the pharmacy at least a week ahead of her 07/01 procedure so she can pick it up. Contact patient by: n/a Phone number: n/a Thank you, Lisa Houston, Road Crew Member [phone] PLEASE REPLY TO THE SECRETARIAL POOL WHEN REPLYING TO THIS MESSAGE--p RST END ANG MED AA. Thank you! documented in this encounter Plan of Treatment Upcoming Encounters Date Type Specialty Care Team Description 09/08/2022 Procedure visit Aesthetic Medicine and Juanita Vaz, Surgery CHEMICALS DISTILLER, C.N.P. [address] [place] [phone] (Wo rk) 09/08/2022 Comprehensive Visit Aesthetic Medicine Lucero Mckeona P, Surgery Francesca, Ph.D. [address] [place] [phone] (Wo rk) documented as of this encounter Visit Diagnoses Not on filedocumented in this encounter Care Teams Scenic Designer Relationship Specialty Start Date End Date Elsewhere, Pcp PCP - General Internal Medicine 07/03/17 documented as of this encounter
--- OUTSIDE RECORDS SUMMARY | 2022-07-30 19:55 | XMS_ITS | Encounter Summary ---
:[address] [facility] Address [address] [place] [address] Care Team Providers Name Role Phone Elsewhere, Pcp Primary Care Provider Unavailable Reason for Visit Reason Comments Patient call/request Encounter Details Date Type Department Care Team Description 06/21/2020 Clinical Communication Department of Juanita Vaz Vascular Medicine R, AXLE TURNER, call/reque [facility] [address] [facility] [address] [place] [phone] Social History Tobacco Use Types Packs/Day Years [...] place to sleep or slept in a fpc (including now)? Education Answer Date Recorded What is the highest level of school Master's degree (e.g., M A, MS, 03/30/2019 you have completed or the highest Armando, MEd, CLERK RATING, ALL) degree you have received? Sex Assigned at Date Recorded Female 07/26/2020 9:06 PM CDT documented as of this encounter Miscellaneous Notes Telephone Encounter - Chayito Clements - 06/25/2020 2:59 PM CDT LM for pt to call to schedule. Telephone Encounter - Fely Alexis - 06/21/2020 2:26 PM CDT Juanita, Patient called today and she is looking to set up more sclerotherapy sessions. You had seen patient last on 11/07/2019 for sclero. Patients last US was on 12/01/18. Please advise if we should schedule a sclero session or does patient need a return and US with you first. Also we would need orders. Thanks When replying, please route message to the following pool: P RST VSC SCHEDULING PASS: call pt to schedule per SRK//Pt Looking for 07/31. documented in this encounter Plan of Treatment Upcoming Encounters Date Type Specialty Care Team Description 09/08/2022 Procedure visit Aesthetic Medicine and Juanita Vaz, Surgery AXLE TURNER, C.N.P. [address] [place] [phone] (Charlotte bentley) 09/08/2022 Comprehensive Visit Aesthetic Medicine Lucero Mckeon, Surgery M.D., Ph.D. [address] [place] [phone] (Charlotte bentley) documented as of this encounter Visit Diagnoses Not on filedocumented in this encounter Care Teams Communications Tower Technician Relationship Specialty Start Date End Date Elsewhere, Pcp PCP - General Internal Medicine 07/03/17 documented as of this encounter
--- OUTSIDE RECORDS SUMMARY | 2022-07-30 19:55 | XMS_ITS | Encounter Summary ---
:1945 Author Organization [facility] Address [address] [place] [address] Care Team Providers Name Role Phone Elsewhere, Pcp Primary Care Provider Unavailable Encounter Details Date Type Department Care Team Description 12/06/2019 Orders Only Division of Steven, Emily Browning (Primary Dx); Endocrinology in M.D. Medication Therapy Residential Not Anticoa gulant; [place], [place] [address] [facility] Hypertension Essential Primary [address] [place] [phone] Social History Tobacco Use Types Packs/Day Years [...] or relatives? How often do you attend cheondoism or More than 4 times per year 01/28/2021 church services? Do you belong to any clubs or Yes 01/28/2021 organizations such as cheondoism groups, unions, fraternal or athletic groups, or [...] have completed or the highest Armando, Cora, TEACHER VOCATIONAL TRAINING, ALL) degree you have received? Sex Assigned at Date Recorded Female 07/26/2020 9:06 PM CDT documented as of this encounter Plan of Treatment Upcoming Encounters Date Type Specialty Care Team Description 09/08/2022 Procedure visit Aesthetic Medicine and Juanita Vaz, Surgery HCC CODERS, C.N.P. [address] [place] [phone] (Wo rk) 09/08/2022 Comprehensive Visit Aesthetic Medicine and Lucero Pritchard, Surgery Francesca, Ph.D. [address] [place] [phone] (Wo rk) documented as of this encounter Results S-TSH (Thyroid-Stimulating Hormone - Sensitive) (05/16/2020 2:14 PM CDT) athologist Signature TSH, Sensitive 0.4 0.3 - 4.2 05/16/2020 DTL mIU/L 3:33 PM CDT Specimen Anatomical Collection Method Collection Time Receive d Time (Source) Location / / Volume Laterality Blood (Blood, 05/16/2020 2:14 PM 05/16/20 20 3:08 Venous) CDT PM CDT Merrill Harris M.D. LAB BLOOD ADD-ON Performing Organization Address City/State/ZIP Code Phon e Number [facility] - 200 [place], [place] [address] [facility] [place] [address] [facility] 200 [facility] (ABNORMAL) Glucose, Fasting (05/16/2020 2:14 PM CDT) athologist Signature Glucose, P 106 (H) 70 - 100 05/16/2020 DTL mg/dL 3:25 PM CDT Last Intake 5 hr 05/16/2020 DTL 3:09 PM CDT Specimen Anatomical Collection Method Collection Time Receive d Time (Source) Location / / Volume Laterality Blood (Blood, 05/16/2020 2:14 PM 05/16/20 20 3:09 Venous) CDT PM CDT Merrill Harris M.D. LAB BLOOD NON ADD-ON Performing Organization Address City/State/ZIP Code Phon e Number [facility] - [address] [place], [place] [address] [facility] [address] [facility] [address] Bone Alkaline Phosphatase (05/16/2020 2:14 PM CDT) athologist Signature Bone Alkaline 14 mcg/L 05/16/2020 [facility] Phosphatase, S 6:59 PM CDT Comment: ----REFERENCE VALUE---- <=14 (Premenopausal) <=22 (Postmenopausal) Specimen Anatomical Collection Method Collection Time Receive d Time (Source) Location / / Volume Laterality Blood (Blood, 05/16/2020 2:14 PM 05/16/20 20 6:11 Venous) CDT PM CDT Merrill Harris M.D. LAB BLOOD ADD-ON Performing Organization Address City/[facility]/ZIP Code Phon e Number [facility] [address] [place] [address] [facility] [place] [address] Laboratory Medicine and Pathology [address] [place] [address] Dr. PETERSON Beta-CrossLaps (Beta-CTx) (05/16/2020 2:14 PM CDT) athologist Signature Beta-CrossLaps 502 pg/mL 05/16/2020 [facility] (B-CTx), S 6:48 PM CDT Comment: ----REFERENCE VALUE---- 25-573 (Premenopausal) 104-1008 (Postmenopausal) Specimen Anatomical Collection Method Collection Time Receive d Time (Source) Location / / Volume Laterality Blood (Blood, 05/16/2020 2:14 PM 05/16/20 20 6:11 Venous) CDT PM CDT Merrill Harris M.D. LAB BLOOD NON ADD-ON Performing Organization Address City/[facility]/ZIP Code Phon e Number [facility] [address] [place] [address] [facility] [place] [address] Laboratory Medicine and Pathology [facility] [address] PETERSON AST (Aspartate Aminotransferase) (05/16/2020 2:14 PM CDT) Patholo gist Method Time Signature Aspartate 21 8 - 43 05/16/2020 DTL Aminotransferase U/L 3:33 PM CDT (AST), S Specimen Anatomical Collection Method Collection Time Receive d Time (Source) Location / / Volume Laterality Blood (Blood, 05/16/2020 2:14 PM 05/16/20 20 3:08 Venous) CDT PM CDT Merrill Harris M.D. LAB BLOOD ADD-ON Performing Organization Address City/State/ZIP Code Phon e Number [facility] - [address] [place], [place] [address] [facility] [place] [address] [facility] [address] documented in this encounter Visit Diagnoses Diagnosis Osteoporosis - Primary Medication Therapy Residential Not Anticoa gulant Hypertension Essential Primary documented in this encounter Care Teams Transformer Shop Supervisor Relationship Specialty Start Date End Date Elsewhere, Pcp PCP - General Internal Medicine 07/03/17 documented as of this encounter
--- OUTSIDE RECORDS SUMMARY | 2022-07-30 19:55 | XMS_ITS | Encounter Summary ---
:1945 Author Organization [facility] Address [address] [place] [address] Care Team Providers Name Role Phone Elsewhere, Pcp Primary Care Provider Unavailable Reason for Referral Specialty Diagnoses / Procedures Referred By Contact Refer red To Contact Sho Song APR N, C.N.P. [facility] [address] [place] [phone] Referral ID Status Reason Start Date Expiration Date Visits Requ ested Visits Authorized Outpatient (Routine) - Closed Specialty Diagnoses / Procedures Referred By Contact Refer red To Contact Orthopedic Surgery Sho Song APRN, [facility] C.N.P. [address] [place] [phone] Referral ID Status Reason Start Date Expiration Date Visits Requ ested Visits Authorized [id number] Closed 07/31/2020 07/31/2021 1 1 Outpatient (Routine) - Closed Specialty Diagnoses / Procedures Referred By Contact Refer red To Contact General Surgery Diagnoses Primary Osteoarthritis Hip Left Sho Song [facility] CLAUDIA, C.N.P. [address] [place] [phone] Referral ID Status Reason Start Date Expiration Date Visits Requ ested Visits Authorized [id number] Closed 07/31/2020 07/31/2021 1 1 Reason for Visit Reason Onset Date Comments Pre-Surgical COVID-19 screening 07/31/2020 Pain Appointment Request (Routine) - Closed Specialty Diagnoses / Procedures Referred By Contact Refer red To Contact Orthopedic Surgery Diagnoses Arthritis Hip Referral ID Status Reason Start Date Expiration Date Visits Requ ested Visits Authorized [id number] Closed 09/25/2019 09/24/2020 1 Encounter Details Date Type Department Care Team Description 07/31/2020 Comprehensive Visit Department of Paulie, Primary Osteoarthritis Hip Left (Primary Dx); Orthopedic Surgery Reji Anna Preoperative Exam; in [address] Encounter For Screening For Other Viral Diseases (COVID-19) [place], [place] [address] [place] [phone] [place], [place] [phone] (Work) [phone] Social History Tobacco Use Types Packs/Day Years [...] or relatives? How often do you attend sikh or More than 4 times per year 01/28/2021 sikh services? Do you belong to any clubs or Yes 01/28/2021 organizations such as sikh groups, unions, fraternal or athletic groups, or [...] have completed or the highest Armando, MEd, BAND SINGER, ALL) degree you have received? Sex Assigned at Date Recorded Female 07/26/2020 9:06 PM CDT documented as of this encounter Progress Notes Sho Song APRN, C.N.P. - 07/31/2020 8:00 AM CDT Pre-Surgical Screening for patients with a surgery scheduled on the [facility] and [facility] surgical suites. 1. 2-3 days prior to scheduled surgery: Patient will have testing for COVID-19. 2. Test results will be verified by the surgical team before the patient arrives at the [facility] surgery. The Patient Appointment Guide will contain the specific arrival times/locations for these scheduled appointment(s). On weekend days, patients who will be testing in [place] are to arrive at [facility] or [facility] from the [facility]. documented in this encounter Consult Notes Steven Gupta M.D. - 07/31/2020 8:00 AM CDT SUBJECTIVE REASON FOR VISIT Yamileth Sheikh is a 74 y.o. female who presents to the office today for consultation regarding left hip pain. Pain reported: Site 1 Pain Score: 5 - Moderate pain, Pain Location: Hip, Pain Orientation: Left, (07/31/20 0753 : Aleida Hutchison) HISTORY OF PRESENT ILLNESS Yamileth Sheikh is a 74 y.o. female who presents to the office today for consultation regarding left hip pain. Patient reports she has been experiencing left hip pain for approximately 1 year heard the pain she is experiencing most noticeable in her groin, it occurs mainly with activity but is alsopresent at night. She feels like it severely limits her ability to participate in the activities of daily living. She has difficulty sitting and climbing stairs as well. She takes NSAIDs for the pain. She has had multiple injections in her greater trochanter area however no intra articular injections.This pain that she is experiencing is different than her greater trochanteric pain. She is interesting in the direct anterior approach due to her having a bladder stimulator placed which is located in her left gluteal region. She has also his recently diagnosed with osteoporosis and received a prescription for Fosamax from her primary care doctor. She denies lower extremity weakness, numbness and tingling. Patient had a right total hip arthroplasty completed in 2006 for which he is doing well. Hip Function Analysis (left hip ) ?? Pain: moderate ?? Location of pain: groin ?? Occurrence of pain: after any walking ?? Supports: none ?? Limp: slight ?? Distance walked: 4-6 blocks (30 minutes) ?? Stairs: yes, using handrail ?? Socks / tie shoes: yes, with difficulty ?? nuclear powerplant supervisor an object from the floor: yes, with difficulty ?? Sitting: unable to sit for 1/2 hour ?? In and out of a car: yes, with difficulty ?? Rise from chair: able with difficulty ?? Activity level: daily walking about town, house, office ?? Medications: yes, NSAIDs ?? Other LE joint involvement (Jey all that apply): right knee and left knee REVIEW OF SYSTEMS ?? Prior DVT / PE: No ?? Diabetes mellitus: No ?? Active tobacco use: No ?? Known bleeding disorder: No ?? Chronic anticoagulation: No ?? 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 Dr. Rich ASENCIO). has a past surgical history that includes Endometrial biopsy (N/A, 06/26/2016); Hysteroscopy (N/A, 06/23/2016); Joint replacement (2006); Breast surgery (Reduction 2009); section (10/28/1978);DILATATION AND CURETTAGE (1996); Hysteroscopy (N/A, 05/06/2018); DILATATION AND CURETTAGE (N/A, 05/06/2018); LYSIS ADHESIONS OVARY (N/A, 05/06/2018); Cataract extraction, bilateral (Bilateral, 2018); and Sacral nerve stimulator placement. CURRENT MEDICATIONS Yamileth Sheikh has a current medication list which includes the following prescription(s): alendronate, cholecalciferol (vitamin d3), ciclopirox, co- enzyme q-10, estradiol, estradiol, hydrocortisone, irbesartan, lysine, omega-3 acid ethyl esters, rosuvastatin, tretinoin, and valacyclovir hcl, and the following Facility-Administered Medications: sodium tetradecyl sulfate. OBJECTIVE Vital Signs vitals were not taken for this visit. PHYSICAL EXAMINATION ?? General: Awake and alert. No acute distress. Normal Mood ?? Gait: Antalgic gait to the left ?? Skin: She has a well-healed incision from her previous posterior approach for her right total hiparthroplasty, she has well-healed incision overlying her bladder stimulator over the left glute ?? Neurologic: sensation grossly intact to bilateral lower extremities . ?? Vascular: palpable dorsalis pedis and posterior tibial pulse Hip Function Analysis (left hip ) ?? Full Extension: 0 degrees (neutral) ?? Full Flexion: 90 degrees ?? Abduction:+10 degrees ?? Adduction: 0 degrees (neutral) ?? External Rotation: + 20 degrees (external rotation) ?? Internal Rotation: 0 degrees (neutral) ?? Positive Trendelenberg:no ?? Leg Length Discrepancy:legs equal ?? Amount of discrepancy in mm: 1 to 4 Patient has mild tenderness over the greater trochanter on the left, her log roll is positive on left her Stinchfield test is positive on the left. DIAGNOSTICS ?? Labs: No results found for this or any previous visit (from the past 72 hour(s)).No results foundfor this visit on 07/31/20 (from the past 336 hour(s)). Imaging: Radiographs of the left hip and pelvis completed on 07/31/2020 show Compared to 09/20/19, there has been no change in the appearance of right ALEKS. Advanced degenerative changes left hip with complete loss of joint space. The femoral head is partially obscured by a nerve stimulator battery pack. The stimulator lead has its tip at S4 on the left. 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 Calcification in the pelvis is likely uterine. Osteopenia. ASSESSMENT / PLAN #1 Primary Osteoarthritis Hip Left #2 Preoperative Exam #3 Encounter For Screening For Other Viral Diseases (COVID-19) Ms. Sheikh is a very pleasant 74-year-old lady whose history, physical exam and imaging are consistent with severe left-sided degenerative joint disease of the hip. She has failed non operative treatment andMs. Sheikh feels that the pain and limitations on activities of daily living are bad enoughto warrant surgical intervention. We discussed Left Total Hip Arthroplasty through a Direct AnteriorApproach. Ms. Sheikh would like to proceed. All questions answered. Please see Dr. Apodaca's supervisory note for final plan recommendations. Informed Consent: The patient understands that the [...] and strategies used to reduce those risks. Associated attestation - Ángel Apodaca M.D. - 07/31/2020 9:49 AM CDT I personally spent over half of a total 30 minutes face to face with the patient in counseling and discussion and/or coordination of care as described above. documented in this encounter Plan of Treatment Upcoming Encounters Date Type Specialty Care Team Description 09/08/2022 Procedure visit Aesthetic Medicine and Juanita Vaz, Surgery ELECTRONIC PAGE MAKEUP SYSTEM OPERATOR, C.N.P. 200 [place] [phone] (Charlotte bentley) 09/08/2022 Comprehensive Visit Lucero Cervantes Surgery MJayda, Ph.D. 200 [place] [phone] (Charlotte bentley) Scheduled Referrals Name Type Priority Associated Diagnoses Order S chedule Preoperative Outpatient Routine Primary Osteoarthritis Expec jimena: Evaluation IGNACIO Referral Hip Left 09/10/2020 consult (clinic) (Approximat e), Expires: 07/31/2023 Orthopedic Surgery Outpatient Routine Expected: Pre Op (clinic) Referral 09/10/2020 (Approximate), Expires: 07/31/2023 Orthopedic Surgery - Outpatient Routine Primary Osteoarthrit is Expected: Group total hip Referral Hip Left 09/10/2020 education visit (Approximate ), (clinic) Expires: 07/31/2023 documented as of this encounter Results SARS Coronavirus-2 RNA, V Asymptomatic (09/09/2020 10:34 AM COMMUNITY CULTURAL DEVELOPMENT OFFICER) [facility] Method Time Signature SARS-CoV-2 Swab, 09/09/2020 DTL Specimen Nasopharynx 4:30 PM COMMUNITY CULTURAL DEVELOPMENT OFFICER Source SARS CoV-2 Undetected Undetected 09/09/2020 DTL RNA, TMA 4:30 PM COMMUNITY CULTURAL DEVELOPMENT OFFICER Comment: SARS-CoV-2 RNA absent. This result does not rule out COVID-19 in the patient, as the sensitivity of the test depends o n the timing of the specimen collection and the quality of the specim en. Result should be correlated with patient's history and clinical presentat ion. ----ADDITIONAL INFORMATION---- This test is performed using the Aptima SARS-CoV-2 assay ([employer] which has received Emergency Use Authori zation (EUA) by the U.S. Food and Drug Administration. Fact sheets for this Emergency Use Autho rization (EUA) assay can be found at the following links: For Healthcare Providers: https://www.fd a.gov/media/655515/download For Patients: https://www.fda.gov/media/ 430333/download Specimen Anatomical Collection Method Collection Time Receive d Time (Source) Location / / Volume Laterality Varies 09/09/2020 10:34 09/09/2020 (Nasopharynx) AM COMMUNITY CULTURAL DEVELOPMENT OFFICER 11:36 AM COMMUNITY CULTURAL DEVELOPMENT OFFICER Sho Song APRN, C.N.P. LAB MICROBIOLOGY - GENERAL ORDERABLES Performing Organization Address City/State/ZIP Code Phon e Number [facility] - [address] [place], [place] [address] [facility] [place] [address] [facility] [address] documented in this encounter Visit Diagnoses Diagnosis Primary Osteoarthritis Hip Left - Primar y Preoperative Exam Encounter For Screening For Other Viral Diseases (COVID-19) documented in this encounter Care Teams Art Gallery Internship Relationship Specialty Start Date End Date Elsewhere, Pcp PCP - General Internal Medicine 07/03/17 documented as of this encounter
--- OUTSIDE RECORDS SUMMARY | 2022-07-30 19:55 | XMS_ITS | Encounter Summary ---
:1945 Author Organization [facility] Address [address] [place] [address] Care Team Providers Name Role Phone Elsewhere, Pcp Primary Care Provider Unavailable Encounter Details Date Type Department Care Team Description 05/17/2020 Clinical Communication Division of Merrill Harris Endocrinology in M.. [place], [place] [address] [facility] [address] [place] [phone] Social History Tobacco Use Types Packs/Day Years [...] More than 4 times per year 01/28/2021 bahai services? Do you belong to any clubs [...] have completed or the highest Armando, MEd, CHANGE ANALYST, ALL) degree you have received? Sex Assigned at Date Recorded Female 07/26/2020 9:06 PM CDT documented as of this encounter Miscellaneous Notes Telephone Encounter - Merrill Harris M.D. - 05/24/2020 11:18 AM CDT I spoke to the patient. Thanks for the note. Telephone Encounter - Nettie Valle - 05/17/2020 3:17 PM CDT Patient called Reason for Calling: Lab results Detailed Message: Pt is unable to view lab results due to having a bad internet connection and wouldlike to get the results from her both her labs yesterday. Best time to be reached: any Contact patient by: phone Phone number: [phone] Thank you, Oliver PLEASE REPLY TO THE SECRETARIAL POOL WHEN REPLYING TO THIS MESSAGE--p RST END ANG ORTIZ. Thank you! documented in this encounter Plan of Treatment Upcoming Encounters Date Type Specialty Care Team Description 09/08/2022 Procedure visit Aesthetic Medicine and Juanita Vaz, Surgery STIFF NECK LOADER, C.N.P. [address] [place] [phone] (Charlotte bentley) 09/08/2022 Comprehensive Visit Aesthetic Medicine Lucero Mckeon, Surgery M.Norma, Ph.D. [address] [place] [phone] (Charlotte bentley) documented as of this encounter Visit Diagnoses Not on filedocumented in this encounter Care Teams Fuel Handler Relationship Specialty Start Date End Date Elsewhere, Pcp PCP - General Internal Medicine 07/03/17 documented as of this encounter
--- OUTSIDE RECORDS SUMMARY | 2022-07-30 19:55 | XMS_ITS | Encounter Summary ---
:1945 Author Organization [facility] Address [address] [place] [address] Care Team Providers Name Role Phone Elsewhere, Pcp Primary Care Provider Unavailable Reason for Referral Outpatient (Routine) - Closed Specialty Diagnoses / Procedures Referred By Contact Refer red To Contact Diagnoses Osteoporosis Merrill Harris M.D. [facility] Procedures BMD Bone Density Spine Hips [address] [place] [phone] Referral ID Status Reason Start Date Expiration Date Visits Requ ested Visits Authorized [id number] Closed 05/24/2020 05/24/2021 1 1 Reason for Visit Outpatient (Routine) - Closed Specialty Diagnoses / Procedures Referred By Contact Refer red To Contact Diagnoses Osteoporosis Merrill Harris M.D. [facility] Procedures BMD Bone Density Spine Hips [address] [place], [place] [phone] Referral ID Status Reason Start Date Expiration Date Visits Requ ested Visits Authorized [id number] Closed 05/24/2020 05/24/2021 1 1 Encounter Details Date Type Department Care Team Description 07/01/2020 Hospital Encounter Department of Merrill Harris, Oste oporosis Radiology, Marino Ma [facility] [address], in [place], [address] [place], [place] [address] [facility] [address] [place], [place] [phone] ( rk) [phone] Social History Tobacco Use Types Packs/Day Years [...] More than 4 times per year 01/28/2021 advent services? Do you belong to any clubs [...] have completed or the highest Armando, MEd, BOMB SQUAD COMMANDER, ALL) degree you have received? Sex Assigned [...] visit Aesthetic Medicine and Juanita Vaz, Surgery CHIEF OF SURGERY, C.N.P. [address] [place] [phone] (Wo rk) 09/08/2022 Comprehensive Visit Aesthetic Medicine Lucero Mckeon, Surgery M.DAnali, Ph.D. [address] [place] [phone] (Wo rk) documented as of this encounter Procedures Procedure Name Priority Date/Time Associated Comments Diagnosis BMD BONE DENSITY RAD - Routine 07/01/2020 1:34 Osteoporosis Results for this SPINE HIPS (most inpatients PM CDT procedure a re in and all the results outpatients) section. documented in this encounter Results BMD Bone Density Spine Hips (07/01/2020 1:34 [...] 0.041 g/cm(sq) ?The absolute BMD change from basel ine, ??0.092g/cm(sq), is ?greater than the least significant [...] including images and graphs, is available in [facility]. ?In the absence of other causes of [...] calculations. Procedure Note Tiffany Oglesby M.D. - 07/01/2020Formatti lucy of this note might be different [...] including images and graphs, is available in [employer]. In the absence of other causes of [...] evidence of skeletal fragility in the a rustopriate clinical setting. Right ALEKS. Patient does not meet ISCD guidelines fo r FRAX calculations. IMPRESSION: Osteoporosis Merrill Harris M.D. [facility] DXA PROCEDURES documented in this encounter Visit Diagnoses Diagnosis Osteoporosis documented in this encounter Care Teams Barber Or Beauty Shop Manager Relationship Specialty Start Date End Date Elsewhere, Pcp PCP - General Internal Medicine 07/03/17 documented as of this encounter
--- OUTSIDE RECORDS SUMMARY | 2022-07-30 19:55 | XMS_ITS | Encounter Summary ---
:1945 Author Organization [facility] Address [address] [place] [address] Care Team Providers Name Role Phone Elsewhere, Pcp Primary Care Provider Unavailable Encounter Details Date Type Department Care Team Description 07/02/2020 Diagnostic Department of Jessica Hwang Hearing Otorhinolaryngology in [place] Ar[place], [place] Au.D. Bilateral (Primary [address] [facility] [place] [phone] Social History Tobacco Use Types Packs/Day [...] or relatives? How often do you attend religious or More than 4 times per year 01/28/2021 gnosticist services? Do you belong to any clubs or Yes 01/28/2021 organizations such as religious groups, unions, fraternal or athletic groups, or [...] completed or the highest Armando, MEd, SPORTS BOOK SERVER, ALL) degree you have received? Sex Assigned at Date Recorded Female 07/26/2020 9:06 PM CDT documented as of this encounter Progress Notes Emeli Hwang Au.D. - 07/02/2020 8:00 AM CDT SUBJECTIVE REFERRAL: Self CHIEF COMPLAINT/REASON FOR VISIT Hearing aid follow-up HISTORY Yamileth Sheikh is a 74 y.o. female with an asymmetrical sensorineural hearing [...] tinnitus. ?? Patient was fit with amplification on??04/27/2019. Since initial fitting, both earmolds have been remade. Hearing Aid Information Left Right Platform Worker [employer] ReSound Model Linx 3D 577 Linx 3D 577 Style BTE (ymgokd-ndj-qav) BTE (ieqfhm-sup-qhq) Serial Number [id number] Battery Size 13 13 ? Coupling Custom earmold, WHITING MACHINE OPERATOR#5 Custom earmold, WHITING MACHINE OPERATOR#5 ? Warranty Date 05/12/2022 05/12/2022 Trial Period End Date 06/12/2019 OBJECTIVE Otoscopic evaluation was performed and indicated clear ear canals, bilaterally. ASSESSMENT/PLAN Following hearing aid cleaning, listening check indicates good function for each aid. The following components were replaced during cleaning: tubing. Please note left tubing needed to be cemented in asthe internal ring to snap in the tubes had come out. Aided real-ear probe microphone measures showed excellent audibility when compared to NAL- NL2 targets for conversational speech inputs (65 dB SPL). Follow-up in 6-12 months for routine hearing aid check is recommended. #1 Loss Hearing Sensorineural Bilateral documented in this encounter Plan of Treatment Upcoming Encounters Date Type Specialty Care Team Description 09/08/2022 Procedure visit Aesthetic Medicine and Juanita Vaz, Surgery RESEARCH STATISTICIAN, C.N.P. [address] [place] [phone] (Charlotte bentley) 09/08/2022 Comprehensive Visit Aesthetic Medicine and Lucero Pritchard, Surgery MJayda, Ph.D. [address] [place] [phone] (Charlotte bentley) documented as of this encounter Visit Diagnoses Diagnosis Loss Hearing Sensorineural Bilateral - P rimary documented in this encounter Care Teams Loss Prevention Associate Relationship Specialty Start Date End Date Elsewhere, Pcp PCP - General Internal Medicine 07/03/17 documented as of this encounter
--- OUTSIDE RECORDS SUMMARY | 2022-07-30 19:55 | XMS_ITS | Encounter Summary ---
:1945 Author Organization [facility] Address [address] [place] [address] Care Team Providers Name Role Phone Elsewhere, Pcp Primary Care Provider Unavailable Encounter Details Date Type Department Care Team Description 07/01/2020 Ancillary Procedure Department of Gastroenterology Social History Tobacco Use Types Packs/Day Years [...] or relatives? How often do you attend catholic or More than 4 times per year 01/28/2021 sabianism services? Do you belong to any clubs or Yes 01/28/2021 organizations such as catholic groups, unions, fraternal or athletic groups, [...] have completed or the highest Armando, MEd, NECKTIE TURNER, ALL) degree you have received? Sex Assigned at Date Recorded Female 07/26/2020 9:06 PM CDT documented as of this encounter Plan of Treatment Upcoming Encounters Date Type Specialty Care Team Description 09/08/2022 Procedure visit Aesthetic Medicine and Juanita Vaz, Surgery PLATE GLASS INSTALLER, C.N.P. [address] [place] [phone] (Charlotte bentley) 09/08/2022 Comprehensive Visit Aesthetic Lucero Arita, Surgery M.D., Ph.D. [address] [place] [phone] (Charlotte bentley) documented as of this encounter Procedures Procedure Name Priority Date/Time Associated Comments Diagnosis GASTROENTEROLOGY IMAGE Routine 07/01/2020 9:20 Re sults for this EXAM AM CDT procedure are i n the results section. documented in this encounter Results Colonoscopy-Gastroenterology Image Exam (07/01/2020 9:20 AM CDT) Specimen (Source) Anatomical Collection Method Collection Time Re ceived Time Location / / Volume Laterality 07/01/2020 9:17 AM CDT Narrative [facility] - 07/01/2020 10:27 AM CDT This order has been created [...] on filedocumented in this encounter Care Teams Data Center Solutions Architect Relationship Specialty Start Date End Date Elsewhere, Pcp PCP - General Internal Medicine 07/03/17 documented as of this encounter
--- OUTSIDE RECORDS SUMMARY | 2022-07-30 19:55 | XMS_ITS | Encounter Summary ---
:1945 Author Organization [facility] Address [address] [place] [address] Care Team Providers Name Role Phone Elsewhere, Pcp Primary Care Provider Unavailable Encounter Details Date Type Department Care Team Description 05/16/2020 Hospital Encounter Department of Steven, Merrill cuenca; Laboratory Medicine D, Francesca Fatigue ; and Pathology, [address] [place] [address] Medication Therapy Halfway Not Anticoa gulant; [facility], in [place], [place] Hyperte nsion Essential Primary [facility] [address] [place] [phone] 200 [facility] (Work) [place], [place] [phone] [phone] (Fax) [phone] Social History Tobacco Use Types Packs/Day Years [...] More than 4 times per year 01/28/2021 zoroastrianism services? Do you belong to any clubs [...] have completed or the highest Armando, MEd, MEDICATION ADMINISTRATION PROFESSIONAL, ALL) degree you have received? Sex [...] tablet by 0 ORAL) mouth as needed. amoxicillin (AMOXIL) 500 Take 2 capsules by 0 05/17/2020 mg capsule mouth as needed. ciclopirox (LOPROX) 0.77 Apply 1 application 0 08/22/2020 % cream topically 2 (two) times a day. To toenails. omega-3 acid ethyl esters Take 1 capsule by 0 09/10/2020 (LOVAZA) 1 gram capsule mouth as needed. documented as of this encounter Plan of Treatment Upcoming Encounters Date Type Specialty Care Team Description 09/08/2022 Procedure visit Aesthetic Medicine and Juanita Vaz, Surgery ENVIRONMENTAL TECH, C.N.P. [address] [place] [phone] (Wo rk) 09/08/2022 Comprehensive Visit Aesthetic Medicine and Lucero Pritchard, Surgery M.D., Ph.D. [address] [place] [phone] (Wo rk) documented as of this encounter Procedures Procedure Name Priority Date/Time Associated Comments Diagnosis BETA-CROSSLAPS Routine 05/16/2020 2:14 Osteoporosis Results for this (BETA-CTX), S PM CDT Medication Therapy procedur e are in Music Director Not the results Anticoagulant section. Hypertension Essential Primary BONE ALKALINE Routine 05/16/2020 2:14 Osteoporosis Results for this PHOSPHATASE, S PM CDT Medication Therapy procedu re are in Music Director Not the results Anticoagulant section. Hypertension Essential Primary 25-HYDROXYVITAMIN D2 AND Routine 05/16/2020 2:14 Osteoporosis Results for this D3, S PM CDT procedure are i n the results section. CBC WITHOUT Routine 05/16/2020 2:14 Fatigue Results for this DIFFERENTIAL, B PM CDT Osteoporosis procedure ar e in the results section. ASPARTATE Routine 05/16/2020 2:14 Osteoporosis Results for this AMINOTRANSFERASE (AST), PM CDT Medication Therap y procedure are in S/P Music Director Not the results Anticoagulant section. Hypertension Essential Primary THYROID-STIMULATING Routine 05/16/2020 2:14 Osteoporosis Results for this HORMONE-SENSITIVE PM CDT Medication Therapy proc edure are in (S-TSH) Music Director Not the results Anticoagulant section. Hypertension Essential Primary ELECTROPHORESIS, Routine 05/16/2020 2:14 Osteoporosis Results for this PROTEIN, S PM CDT procedure are i n the results section. PHOSPHORUS (INORGANIC), Routine 05/16/2020 2:14 Osteoporosis R esults for this S PM CDT procedure are i n the results section. PARATHYROID HORMONE Routine 05/16/2020 2:14 Osteoporosis Resul ts for this (PTH), S PM CDT procedure are i n the results section. GLUCOSE, FASTING, S/P Routine 05/16/2020 2:14 Osteoporos is Results for this PM CDT Medication Therapy procedure are in Halfway Not the results Anticoagulant section. Hypertension Essential Primary CREATININE WITH EGFR, Routine 05/16/2020 2:14 Osteoporosis Res ults for this S/P PM CDT procedure are i n the results section. CALCIUM, TOT, S/P Routine 05/16/2020 2:14 Osteoporosis Results for this PM CDT procedure are i n the results section. documented in this encounter Results S-TSH (Thyroid-Stimulating Hormone - Sensitive) (05/16/2020 2:14 PM CDT) athologist [facility] TSH, Sensitive 0.4 0.3 - 4.2 05/16/2020 DTL mIU/L 3:33 PM CDT Specimen Anatomical Collection Method Collection Time Receive d Time (Source) Location / / Volume Laterality Blood (Blood, 05/16/2020 2:14 PM 05/16/20 20 3:08 Venous) CDT PM CDT Merrill Harris M.D. LAB BLOOD ADD-ON Performing Organization Address City[facility] Phon e Number [facility] - [address] (ABNORMAL) Glucose, Fasting (05/16/2020 2:14 PM CDT) athologist [facility] Glucose, P 106 (H) 70 - 100 05/16/2020 DTL mg/dL 3:25 PM CDT Last Intake 5 hr 05/16/2020 DTL 3:09 PM CDT Specimen Anatomical Collection Method Collection Time Receive d Time (Source) Location / / Volume Laterality Blood (Blood, 05/16/2020 2:14 PM 05/16/20 20 3:09 Venous) CDT PM CDT Merrill Harris M.D. LAB BLOOD NON ADD-ON Performing Organization Address City[facility] Phon e Number [facility] - [address] Bone Alkaline Phosphatase (05/16/2020 2:14 PM CDT) athologist Signature Bone Alkaline 14 mcg/L 05/16/2020 [facility] Phosphatase, S 6:59 PM CDT Comment: ----REFERENCE VALUE---- <=14 (Premenopausal) <=22 (Postmenopausal) Specimen Anatomical Collection Method Collection Time Receive d Time (Source) Location / / Volume Laterality Blood (Blood, 05/16/2020 2:14 PM 05/16/20 20 6:11 Venous) CDT PM CDT Merrill Harris M.D. LAB BLOOD ADD-ON Performing Organization Address City/[facility] Code Phon e Number [facility] [address] [place] [address] 05 [facility]PPORT [facility]ENTER [facility] [place] [address] Laboratory Medicine and Pathology [address] [place] [address] Dr. [place] Beta-CrossLaps (Beta-CTx) (05/16/2020 2:14 PM CDT) athologist Signature Beta-CrossLaps 502 pg/mL 05/16/2020 [facility] (B-CTx), S 6:48 PM CDT Comment: ----REFERENCE VALUE---- 25-573 (Premenopausal) 104-1008 (Postmenopausal) Specimen Anatomical Collection Method Collection Time Receive d Time (Source) Location / / Volume Laterality Blood (Blood, 05/16/2020 2:14 PM 05/16/20 20 6:11 Venous) CDT PM CDT Merrill Harris M.D. LAB BLOOD NON ADD-ON Performing Organization Address [facility] Phon e Number [facility] [address] [place], [place] [address] [facility]ENTER [facility] [place] [address] Laboratory Medicine and Pathology [address] [place] [address] Dr. [place] AST (Aspartate Aminotransferase) (05/16/2020 2:14 [...] City/State/ZIP Code Phon e Number [facility] - 200 [place], [place] [address] [place] [address] (ABNORMAL) CBC without Differential (05/16/2020 2:14 PM CDT) [facility] Method Time Signature Hemoglobin 14.8 11.6 - 05/16/2020 DTL 15.0 g/dL 3:02 PM CDT Hematocrit 44.7 35.5 - 05/16/2020 DTL 44.9 % 3:02 PM CDT Erythrocytes 4.77 3.92 - 05/16/2020 DTL 5.13 3:02 PM CDT x10(12)/L MCV 93.7 78.2 - 05/16/2020 DTL 97.9 fL 3:02 PM CDT RBC Distrib Width 13.0 12.2 - 05/16/2020 DTL 16.1 % 3:02 PM CDT Platelet Count 190 157 - 371 05/16/2020 DTL x10(9)/L 3:02 PM CDT Leukocytes 18.2 (H) 3.4 - 9.6 05/16/2020 DTL x10(9)/L 3:02 PM CDT Specimen Anatomical Collection Method Collection Time Receive d Time (Source) Location / / Volume Laterality Blood (Blood, 05/16/2020 2:14 PM 05/16/20 20 2:54 Venous) CDT PM CDT Merrill Harris M.D. LAB BLOOD ADD-ON Performing Organization Address City/State/ZIP Code Phon e Number [facility] - [address] Electrophoresis, Protein (05/16/2020 2:14 PM CDT) [facility] [employer] Method Time Signature Total Protein, 6.6 6.3 - 7.9 05/17/2020 [facility] S g/dL 8:21 AM CDT Albumin 3.7 3.4 - 4.7 05/17/2020 [facility] g/dL 2:45 PM CDT Alpha-1 0.3 0.1 - 0.3 05/17/2020 [facility] Globulin g/dL 2:45 PM CDT Alpha-2 0.9 0.6 - 1.0 05/17/2020 [facility] Globulin g/dL 2:45 PM CDT Beta-Globulin 0.9 0.7 - 1.2 05/17/2020 [facility] g/dL 2:45 PM CDT Gamma-Globulin 0.8 0.6 - 1.6 05/17/2020 [facility] g/dL 2:45 PM CDT A/G Ratio 1.29 05/17/2020 [facility] 2:45 PM CDT Impression No apparent 05/17/2020 [facility] monoclonal 2:45 PM CDT protein on serum electrophoresi s. Specimen Anatomical Collection Method Collection Time Receive d Time (Source) Location / / Volume Laterality Blood (Blood, 05/16/2020 2:14 PM 05/17/20 20 6:24 Venous) CDT AM CDT Merrill Harris M.D. LAB BLOOD ADD-ON Performing Organization Address City/State/ZIP Code Phon e Number [facility] [address] [place], [place] [address] [place] [address] CENTER [facility] [place] [address] Laboratory Medicine and Pathology [address] [place] 25-Hydroxyvitamin D2 and D3 (05/16/2020 2:14 PM CDT) athologist Signature 25-Hydroxy D2 <4.0 ng/mL 05/18/2020 [facility] 4:23 AM CDT 25-Hydroxy D3 42 ng/mL 05/18/2020 [facility] 4:23 AM CDT 25-Hydroxy D 42 ng/mL 05/18/2020 [facility] Total 4:23 AM CDT Comment: ----REFERENCE VALUE---- 25-HYDROXY D TOTAL (D2+D3) Optimum level s in the healthy population are 20-50, patients with bone disease may benefit from higher levels within this r [place]. ----ADDITIONAL INFORMATION---- This test was developed and its performa nce characteristics determined by [facility] in a manner consistent with CLIA requirements. This test has not been cleared or approved by the U.[place] Willi d and Drug Administration. Specimen Anatomical Collection Method Collection Time Receive d Time (Source) Location / / Volume Laterality Blood (Blood, 05/16/2020 2:14 PM 05/17/20 20 7:56 Venous) CDT AM CDT eMrrill Harris M.D. LAB BLOOD ADD-ON Performing Organization Address City/State/ZIP Code Phon e Number [facility] [address] [place], [place] [address] [facility] [place] [address] Laboratory Medicine and Pathology [address] [place] Creatinine with Estimated GFR (05/16/2020 2:14 PM CDT) athologist Signature Creatinine 0.77 0.59 - 05/16/2020 DTL 1.04 mg/dL 3:33 PM CDT eGFR-Non 77 >=60 05/16/2020 DTL Black/ mL/min/BSA 3:33 PM CDT Congolese Comment: ----ADDITIONAL INFORMATION---- Estimated GFR calculated using the 2009 CKD_EPI creatinine equation. eGFR-Black/ 89 >=60 mL/min/BSA 2019 3:33 PM CDT DTL Comment: ----ADDITIONAL INFORMATION---- Estimated GFR calculated using the 2009 CKD_EPI creatinine equation. Specimen Anatomical Collection Method Collection Time Receive d Time (Source) Location / / Volume Laterality Blood (Blood, 05/16/2020 2:14 PM 05/16/20 20 3:08 Venous) CDT PM CDT Merrill Harris M.D. LAB BLOOD ADD-ON Performing Organization Address City/[facility]/ZIP Code Phon e Number [facility] - [address] [place], [place] [address] [facility] [place] [address] [facility] [address] Phosphorus Inorganic (05/16/2020 2:14 PM CDT) athologist Signature Phosphorus 4.0 2.5 - 4.5 05/16/2020 DTL (Inorganic), S mg/dL 3:33 PM CDT Specimen Anatomical Collection Method Collection Time Receive d Time (Source) Location / / Volume Laterality Blood (Blood, 05/16/2020 2:14 PM 05/16/20 20 3:08 Venous) CDT PM CDT Merrill Harris M.D. LAB BLOOD ADD-ON Performing Organization Address City/State/ZIP Code Phon e Number [facility] - [address] [place], [place] [address] [facility] [place] [address] [facility] [address] Calcium, Total (05/16/2020 2:14 PM CDT) athologist Signature Calcium, Total, 9.7 8.8 - 10.2 05/16/2020 DTL S mg/dL 3:33 PM CDT Specimen Anatomical Collection Method Collection Time Receive d Time (Source) Location / / Volume Laterality Blood (Blood, 05/16/2020 2:14 PM 05/16/20 20 3:08 Venous) CDT PM CDT Merrill Harris M.D. LAB BLOOD ADD-ON Performing Organization Address [facility] Phon e Number [facility] - [address] [address] [facility] [address] Parathyroid Hormone (PTH) (05/16/2020 2:14 PM CDT) athologist Signature Parathyroid 38 15 - 65 05/16/2020 DT Hormone (PTH), S pg/mL 3:33 PM CDT Specimen Anatomical Collection Method Collection Time Receive d Time (Source) Location / / Volume Laterality Blood (Blood, 05/16/2020 2:14 PM 05/16/20 20 3:08 Venous) CDT PM CDT Merrill Harris M.D. LAB BLOOD ADD-ON Performing Organization Address [facility] Phon e Number [facility] - [phone] [place] [address] [facility] documented in this encounter Visit Diagnoses Diagnosis Osteoporosis Fatigue Medication Therapy Music Director Not Anticoa gulant Hypertension Essential Primary documented in this encounter Care Teams Calender Roll Press Operator Relationship Specialty Start Date End Date Elsewhere, Pcp PCP - General Internal Medicine 07/03/17 documented as of this encounter
--- OUTSIDE RECORDS SUMMARY | 2022-07-30 19:55 | XMS_ITS | Encounter Summary ---
:1945 Author Organization [facility] Address [address] [place] [address] Care Team Providers Name Role Phone Elsewhere, Pcp Primary Care Provider Unavailable Reason for Visit Outpatient (Routine) - Closed Specialty Diagnoses / Procedures Referred By Contact Refer red To Contact Endocrinology Merrill Harris M.D . [facility] [address] [place], [place] [phone] Referral ID Status Reason Start Date Expiration Date Visits Requ ested Visits Authorized [id number] Closed 05/24/2020 05/24/2021 1 1 Encounter Details Date Type Department Care Team Description 07/02/2020 Office Visit Division of Merrill Harris Osteoporosi s (Primary Endocrinology in M.D. Dx) [place], [place] [address] [facility] [address] [place] [phone] Social History Tobacco Use Types Packs/Day Years [...] have completed or the highest Armando, MEd, LAYUP WORKER, ALL) degree you have received? Sex Assigned at Date Recorded Female 07/26/2020 9:06 PM CDT documented as of this encounter Progress Notes Merrill Harris M.D. - 07/02/2020 4:30 PM CDT SUBJECTIVE CHIEF COMPLAINT/REASON FOR VISIT Ms. Sheikh returned to review the findings on her bone density study and discuss the management ofher osteoporosis. Current Outpatient Medications Medication Sig Dispense Refill ??? alendronate (FOSAMAX) 70 mg tablet Take 1 tablet (70 mg total) by mouth every 7 (seven) days. 1 tablet weekly on an empty stomach, remain upright for at least 30 minutes 12 tablet 3 ??? cholecalciferol, vitamin D3, 1,000 Unit tablet [...] (SOTRADECOL) 2 mL intravenous Once Juanita Vaz, CLAUDIA, C.N.P. Allergies Allergen Reactions ??? Codeine GI intolerance ??? Morphine GI intolerance ??? Nickel Rash ??? Propofol GI intolerance ??? Adhesive Tape-Silicones Rash ??? Latex Rash ??? Perindopril Tinnitus and Cough Other reaction(s): Cough ??? Tramadol GI intolerance ASSESSMENT / PLAN #1 Osteoporosis Ms. Sheikh has a low bone density and a low trabecular bone score and had a 9.3% decrease in her spine density and a 16.4% decrease in the density of her left hip during the past 4 years. Ms. Sheikh has not had low trauma fractures, however, and has not received treatment for osteoporosis. I discussed Ms. Sheikh's fracture risk and advised her to consider treatment with alendronate. should delay the start of treatment, however, until she discusses the use of an antiresorptive agent with her orthopedic surgeon because of the possible need for a total hip arthroplasty in the near future. The adverse reactions that have been reported with the use of alendronate (i.e. atypical femur fractures and osteonecrosis of the jaw) and the proper method for taking alendronate were discussed. Ms. Sheikh should also maintain a calcium intake of 1200 mg and a vitamin D intake of 1000units a day, perform exercises to improve her balance, take precautions to avoid falls, and have herbone density rechecked in 1 to [address] years. [address]ill Harris M[address] CT CT Job ID: [id number] documented in this encounter Plan of Treatment Upcoming Encounters Date Type Specialty Care Team Description 09/08/2022 Procedure visit Aesthetic Medicine and Juanita Vaz, Surgery TOP EXECUTIVE, C.N.P. [address] [place] [phone] (Charlotte bentley) 09/08/2022 Comprehensive Visit Aesthetic Medicine Lucero Mckeon, Surgery Francesca, Ph.D. [address] [place] [phone] (Charlotte bentley) documented as of this encounter Visit Diagnoses Diagnosis Osteoporosis - Primary documented in this encounter Care Teams Vice President Medical Affairs Relationship Specialty Start Date End Date Elsewhere, Pcp PCP - General Internal Medicine 07/03/17 documented as of this encounter
--- OUTSIDE RECORDS SUMMARY | 2022-07-30 19:55 | XMS_ITS | Encounter Summary ---
:1945 Author Organization [facility] Address [address] [place] [address] Care Team Providers Name Role Phone Elsewhere, Pcp Primary Care Provider Unavailable Reason for Visit Reason Onset Date Comments requesting sooner apt 12/04/2019 Encounter Details Date Type Department Care Team Description 12/04/2019 Clinical Division of Merrill Harris requesting maxine humphries Communication Endocrinology in D, MJair. apt [place], [place] [address] [facility] [address] [place] [phone] Social History Tobacco Use Types Packs/Day Years [...] or relatives? How often do you attend congregational or More than 4 times per year 01/28/2021 shinto services? Do you belong to any clubs or Yes 01/28/2021 organizations such as congregational groups, unions, fraternal or athletic groups, or [...] place to sleep or slept in a correction (including now)? Education Answer Date Recorded What is the highest level of school Master's degree (e.g., M A, MS, 03/30/2019 you have completed or the highest Armando, MEd, MEDICAL DOCTOR MD, ALL) degree you have received? Sex Assigned at Date Recorded Female 07/26/2020 9:06 PM CDT documented as of this encounter Miscellaneous Notes Telephone Encounter - Lea Massey - 12/07/2019 2:57 PM CST Spoke with patient and gave her different options of scheduling with another provider to be seen earlier or to keep checking Dr. Harris calendar for an earlier appointment. She is going to keep her appointment for January and if I find something available sooner I will let her know. DRY OPERATOR Telephone Encounter - Merrill Harris M.D. - 12/07/2019 11:58 AM CST Lea Mcgregor! DRY OPERATOR Telephone Encounter - Lea Massey - 12/06/2019 4:[address] Harris, I think you are away from the clinic that day 12/28/19. I am still working on trying to find a sooner appointment for the patient and will touch base with her tomorrow. Meche Tate DRY OPERATOR Telephone Encounter - Reinaldo Blanco - 12/06/2019 1:[address] Harris, Patient called again this afternoon and asked if you could see her before 12/27 when she will be traveling. She is currently scheduled for 01/08 with you. Please advise if we can add her on before 12/27 sometime. Thank you, Reinaldo Tate PASS call pt back when you can. DRY OPERATOR Telephone Encounter - Merrill Harris M.D. - 12/06/2019 9:14 AM CST Please read my note from 2 days ago. I need to review the full bone density report before any appointments are scheduled. Please request a CD containing the full bone density report from the radiology department so that I can determine if the bone density study needs to be repeated. Thanks for the note. DRY OPERATOR Telephone Encounter - Lucero Thompson - 12/05/2019 1:[address] Harris, We received a fax today stating images were pushed and bone density is viewable in [employer] dated 11/23/2019 Thank you Lucero DRY OPERATOR Telephone Encounter - Merrill Harris M.D. - 12/04/2019 9:58 AM CST Please request a CD containing the full bone density report from the radiology department so that I can determine if the bone density study needs to be repeated. Thanks for the note. DRY OPERATOR Telephone Encounter - Margot Haq - 12/04/2019 9:30 AM CST S: Caller/Dept: Ms. Sheikh B: Patient is scheduled on: January 08 A: Patient called requesting: had BMD done on November 23 and her bone density done locally which you can see on Care Everywhere and PCP feels she needs to be seen sooner than January 08, you have no earlier openings as this time. Please advise if can see sooner and if so what date and time. R: PASS contact patient via:[phone] Please route your response to RST END Scheduling pool. Thank you, Margot Tate DRY OPERATOR documented in this encounter Plan of Treatment Upcoming Encounters Date Type Specialty Care Team Description 09/08/2022 Procedure visit Aesthetic Medicine and Juanita Vaz, Surgery GUARD RAIL INSTALLER, C.N.P. [address] [place] [phone] (Charlotte bentley) 09/08/2022 Comprehensive Visit Aesthetic Medicine and Lucero Pritchard, Surgery MJayda, Ph.D. [address] [place] [phone] (Charlotte bentley) documented as of this encounter Visit Diagnoses Not on filedocumented in this encounter Care Teams Stripping Machine Operator Relationship Specialty Start Date End Date Elsewhere, Pcp PCP - General Internal Medicine 07/03/17 documented as of this encounter
--- OUTSIDE RECORDS SUMMARY | 2022-07-30 19:55 | XMS_ITS | Encounter Summary ---
:1945 Author Organization [facility] Address [address] [place] [address] Care Team Providers Name Role Phone Elsewhere, Pcp Primary Care Provider Unavailable Reason for Visit Reason Comments Pre-visit Testing Orders Encounter Details Date Type Department Care Team Description 05/17/2020 Clinical Communication Department [place] Pre- visit Testing Orthopedic Surgery Reji Anna Orders in [place] [address] [address] [place], [place] [address] [place] [address] [place], [place] [phone] (Work) [phone] Social History Tobacco Use Types Packs/Day Years [...] More than 4 times per year 01/28/2021 worship services? Do you belong to any clubs [...] have completed or the highest Armando, MEd, HOUSEKEEPING CLEANER, ALL) degree you have received? Sex Assigned at Date Recorded Female 07/26/2020 9:06 PM CDT documented as of this encounter Miscellaneous Notes Telephone Encounter - Dyllan Pritchard M.D. - 05/17/2020 7:03 PM CDT Signed Telephone Encounter - Parul [place] - 05/17/2020 4:20 PM CDT Sign order documented in this encounter Plan of Treatment Upcoming Encounters Date Type Specialty Care Team Description 09/08/2022 Procedure visit Aesthetic Medicine and Juanita Vaz, Surgery BEEF TRIMMER, C.N.P. [address] [place] [phone] (Wo rk) 09/08/2022 Comprehensive Visit Aesthetic Medicine Lucero Mckeon Surgery M.D., Ph.D. [address] [place] [phone] (Wo rk) documented as of this encounter [...] the pelvis is likely uterine. Osteopenia. Dyllan [facility] BERE JORGENSEN documented in this encounter Visit Diagnoses Diagnosis Pain Hip Left - Primary Pain Hip Left documented in this encounter Care Teams Molding Process Technician Relationship Specialty Start Date End Date Elsewhere, Pcp PCP - General Internal Medicine 07/03/17 documented as of this encounter
--- OUTSIDE RECORDS SUMMARY | 2022-07-30 19:55 | XMS_ITS | Encounter Summary ---
:1945 Author Organization [facility] Address [address] [place] [address] Care Team Providers Name Role Phone Elsewhere, Pcp Primary Care Provider Unavailable Encounter Details Date Type Department Care Team Description 05/16/2020 Hospital Encounter Department of Merrill Harris Oste oporosis; Radiology, [facility], in [address] [place] [address] [place] [phone] [place], [place] [phone] (Work) [phone] Social History Tobacco Use Types Packs/Day Years [...] or relatives? How often do you attend rastafari or More than 4 times per year 01/28/2021 gnosticism services? Do you belong to any clubs or Yes 01/28/2021 organizations such as rastafari groups, unions, fraternal or athletic groups, or [...] have completed or the highest Armando, MEd, HAND TIRE TRIMMER, ALL) degree you have received? Sex Assigned [...] visit Aesthetic Medicine and Juanita Vaz, Surgery CONTROL ELECTRICIAN, C.N.P. [address] [place] [phone] (Charlotte bentley) 09/08/2022 Comprehensive Visit Aesthetic Medicine Lucero Mckeon, Surgery M.Norma, Ph.D. [address] [place] [phone] (Charlotte bentley) documented as of this encounter Procedures Procedure Name Priority Date/Time Associated Comments Diagnosis DX LUMBAR SPINE RAD - Routine 05/16/2020 1:15 Osteoporosis Results for this 2-3 VIEWS (most inpatients PM CDT Height Loss procedure a re in and all the results outpatients) section. DX THORACIC SPINE RAD - Routine 05/16/2020 1:15 Osteoporosis Results for this 2 VIEWS (most inpatients PM CDT Height Loss procedure a re in and all the results outpatients) section. documented in this encounter Results DX Lumbar Spine 2-3 Views (05/16/2020 1:15 PM CDT) Anatomical Region Laterality Modality Lumbar Spine, Musculoskeletal RST LOS, Neuroradiology N/A Digital Radiography ARZ LOS, Muskuloskeletal FLA LOS Specimen (Source) Anatomical Collection Method Collection Time Re ceived Time Location / / Volume Laterality 05/16/2020 1:18 PM CDT Impressions 05/16/2020 1:20 PM CDT Osteopenia. No compression fractures. Hypertrophic changes thoracolumbar spine. Degenerative arthri tis lower lumbar facet joints. Degenerative disk disease L3-lumbosacral interspaces. 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 Ri ght ALEKS. Left sacral stimulator. Narrative 05/16/2020 1:20 PM CDT EXAM: ??DX THORACIC SPINE 2 VIEWS, DX LUMBAR SPINE 2-3 VIEWS Procedure Note Jey Wheat M.D. - 05/16/2020Formatt ing of this note might be different from the original. EXAM: DX THORACIC SPINE 2 VIEWS, DX LUMB AR SPINE 2-3 VIEWS IMPRESSION: Osteopenia. No compression fractures. Hy pertrophic changes thoracolumbar spine. Degenerative arthri tis lower lumbar facet joints. Degenerative disk disease L3-lumbosacral interspaces. 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 Ri ght ALEKS. Left sacral stimulator. Merrill WARD DIAGNOSTIC IMAGING PROCE DURES DX Thoracic Spine 2 Views (05/16/2020 1:15 PM CDT) Anatomical Region Laterality Modality Thoracic Spine, Musculoskeletal RST LOS, N/A Digital Radiography Neuroradiology ARZ LOS, Muskuloskeletal FLA LOS Specimen (Source) Anatomical Collection Method Collection Time Re ceived Time Location / / Volume Laterality 05/16/2020 1:18 PM CDT Impressions 05/16/2020 1:20 PM CDT Osteopenia. No compression fractures. Hypertrophic changes thoracolumbar spine. Degenerative arthri tis lower lumbar facet joints. Degenerative disk disease L3-lumbosacral interspaces. 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 Ri ght ALEKS. Left sacral stimulator. Narrative 05/16/2020 1:20 PM CDT EXAM: ??DX THORACIC SPINE 2 VIEWS, DX LUMBAR SPINE 2-3 VIEWS Procedure Note Jey Wheat M.D. - 05/16/2020Formatt ing of this note might be different from the original. EXAM: DX THORACIC SPINE 2 VIEWS, DX LUMB AR SPINE 2-3 VIEWS IMPRESSION: Osteopenia. No compression fractures. Hy pertrophic changes thoracolumbar spine. Degenerative arthri tis lower lumbar facet joints. Degenerative disk disease L3-lumbosacral interspaces. 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 Ri ght ALEKS. Left sacral stimulator. Merrill WARD DIAGNOSTIC IMAGING PROCE DURES documented in this encounter Visit Diagnoses Diagnosis Osteoporosis Height Loss documented in this encounter Care Teams Compressor Operator Adjuster Relationship Specialty Start Date End Date Elsewhere, Pcp PCP - General Internal Medicine 07/03/17 documented as of this encounter
--- OUTSIDE RECORDS SUMMARY | 2022-07-30 19:55 | XMS_ITS | Encounter Summary ---
:1945 Author Organization [facility] Address [address] [place] [address] Care Team Providers Name Role Phone Elsewhere, Pcp Primary Care Provider Unavailable Reason for Referral Outpatient (Routine) - Closed Specialty Diagnoses / Procedures Referred By Contact Refer red To Contact Diagnoses Cancer Colon Family History Screening Cancer Colon Merrill Harris M.D. [facility] Procedures Colonoscopy [address] [place] [address] Referral ID Status Reason Start Date Expiration Date Visits Requ ested Visits Authorized [id number] Closed 05/24/2020 05/24/2021 1 1 Reason for Visit Outpatient (Routine) - Closed Specialty Diagnoses / Procedures Referred By Contact Refer red To Contact Diagnoses Cancer Colon Family History Screening Cancer Colon Merrill Harris M.D. [facility] Procedures Colonoscopy [address] [place] [address] Referral ID Status Reason Start Date Expiration Date Visits Requ ested Visits Authorized [id number] Closed 05/24/2020 05/24/2021 1 1 Encounter Details Date Type Department Care Team Description 07/01/2020 Hospital Division of Merrill Harris Cancer Colon F amily History; Encounter Gastroenterology javier Perera M.D. Screening Cancer Colon [place], [place] [address] [facility] [address] [place] [phone] Social History Tobacco Use Types Packs/Day Years [...] or relatives? How often do you attend samaritan or More than 4 times per year 01/28/2021 mu-ism services? Do you belong to any clubs or Yes 01/28/2021 organizations such as samaritan groups, unions, fraternal or athletic groups, or [...] place to sleep or slept in a [place] [facility] [place] facility (including now)? Education Answer Date Recorded What is the highest level of school Master's degree (e.g., M A, MS, 03/30/2019 you have completed or the highest Armando, MEd, FINGER WAVER, ALL) degree you have received? Sex Assigned at Date Recorded Female 07/26/2020 9:06 PM CDT documented as of this encounter Last Filed Vital Signs Vital Sign Reading Time Taken Comments Blood Pressure 130/63 07/01/2020 10:45 AM CDT Pulse 51 07/01/2020 10:45 AM CDT Temperature 36.5 ??C (97.7 ??F) 07/01/2020 10:25 AM CDT Respiratory Rate 15 07/01/2020 10:45 AM CDT Oxygen Saturation 98% 07/01/2020 10:45 AM CDT Inhaled Oxygen Concentration - - Weight - - Height 168.9 cm (5' 6.5) 07/01/2020 8:55 AM CDT Body Mass Index - - [...] as needed. documented as of this encounter H&P Notes Kevin Lucero M.D. - 07/01/2020 9:00 AM CDT ASSESSMENT / PLAN Patient Name: Yamileth Sheikh Colonoscopy Procedure Department : DIVISION OF GASTROENTEROLOGY IN [place] [place] SUBJECTIVE Past Medical History: Diagnosis Date ??? Cataract 2016 Not ready to be removed ??? Hyperlipidemia Taking Atorvastatin ??? Hypertension NOS Taking Valsartan ??? Osteopenia ??? Renal Disease Possible because of high creatinine. Dr. Rich ASENCIO Past Surgical History: Procedure Laterality Date ??? BREAST SURGERY Reduction 2010 Biopsies 1994, 1997, 2016 ??? CATARACT EXTRACTION, BILATERAL Bilateral 2018 Lens: J&J model [id number] ??? SECTION 10/28/1978 [...] [facility] OR ??? JOINT REPLACEMENT 2006 ??? LYSIS ADHESIONS OVARY N/A 05/06/2018 Procedure: LYSIS ADHESIONS; Surgeon: Kaleigh Francois M.D.; Location: [facility] OR ??? SACRAL NERVE STIMULATOR PLACEMENT Interstim icon OB History Para Term AB Living 1 1 SAB TAB Ectopic Molar Multiple Live Births # Outcome Date GA Lbr Ildefonso/2nd Weight Sex Delivery Anes PTL Lv 1 Para Social History Socioeconomic History ??? Marital status: Single Spouse name: None ??? Number of children: None ??? Years of education: None ??? Highest education level: Master's degree (e.g., MA, MS, Armando, MEd, FINGER WAVER, ALL) Occupational History ??? None Social Needs ??? Financial resource strain: Not hard at all ??? Food insecurity Worry: Never true Inability: Never true ??? Transportation needs Medical: No Non-medical: No Tobacco Use ??? Smoking status: Never Smoker ??? Smokeless tobacco: Never Used Substance and Sexual Activity ??? Alcohol use: Yes Alcohol/week: 7.0 standard drinks Types: 7 Glasses of wine per week Frequency: 2-3 times a week Drinks per session: 1 or 2 Binge frequency: Never ??? Drug use: No ??? Sexual activity: Not Currently Partners: Male control/protection: Abstinence Lifestyle ??? Physical activity Days per week: 6 days Minutes per session: 60 min ??? Stress: Not at all Relationships ??? Social connections Talks on phone: More than three times a week Gets together: More than three times a week Attends mu-ism service: 1 to 4 times per year Active member of club or organization: Yes Attends meetings of clubs or organizations: 1 to 4 times per year Relationship status: ??? Intimate partner violence Fear of current or ex partner: None Emotionally abused: None Physically abused: None Forced sexual activity: None Other Topics Concern ??? 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 Resides in [place]. 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 Ambulatory Infusion Pump/Implanted Machine Ii Coremaker- Peripheral IV Catheter 07/01/20 20 G Right Hand (Active) Site Assessment Clean;Dry;Intact 07/01/20926 Lumen Status Capped;Flushed 07/01/20926 Dressing Type Securing device;Transparent 07/01/20926 Dressing Status Clean;Dry;Intact 07/01/20926 Peripheral IV Catheter 07/01/20 20 G Right Hand (Active) 07/01/20926 Hand Placed by External Staff?: IV Change Due: Size (Gauge): 20 G Length (Inches): Orientation: Right Site Prep: Alcohol Technique: Anatomical landmarks Placed by: LEODAN Garcia Insertion attempts: 1 Removal Reason : Removal Status: Site Assessment Clean;Dry;Intact 07/01/20926 Lumen Status Capped;Flushed 07/01/20926 Dressing Type Securing device;Transparent 07/01/20926 Dressing Status Clean;Dry;Intact 07/01/20926 Nothing was implanted during the procedure OBJECTIVE Pain Score: 0 - No pain Consents Obtained: written Procedure / Reason for visit: Screening The following portions of the patient's history were reviewed and updated as appropriate: allergies,current medications, family history, medical history, surgical history, social history and problem list. yes Review of systems: pertinent ROS negative Mallampati: II - soft palate, uvula, fauces visible Heart: normal Lung: normal General / Constitutional: normal ASA physical exam: class 2 - patient with mild systemic disease Sedation plan: moderate sedation Patient seen, evaluated and approved for sedation/procedure Baseline Behavior: Psychosocial (WDL): Within Defined Limits Abdominal Exam: Abdomen Inspection: Soft, Nondistended Dental Information: Teeth: Intact documented in this encounter Plan of Treatment Upcoming Encounters Date Type Specialty Care Team Description 09/08/2022 Procedure visit Aesthetic Medicine and Juanita Vaz, Surgery SENIOR ENVIRONMENTAL CONSULTANT, C.N.P. [address] [place] [phone] (Wo rk) 09/08/2022 Comprehensive Visit Aesthetic Medicine and Lucero Pritchard, Surgery Francesca, Ph.D. [address] [place] [phone] (Wo rk) documented as of this encounter Procedures Procedure Name Priority Date/Time Associated Diagnosis Comme nts COLONOSCOPY Routine 07/01/2020 9:17 AM Cancer Colon Family Re sults for this CDT History procedure are in the Screening Cancer results sec tion. Colon COLONOSCOPY Routine 07/01/2020 9:17 AM Cancer Colon Family CDT History Screening Cancer Colon documented in this encounter Results Colonoscopy (07/01/2020 9:17 AM CDT) Specimen (Source) Anatomical Collection Method Collection Time Re ceived Time Location / / Volume Laterality 07/01/2020 9:17 AM CDT Impressions [facility] - 07/01/2020 10:23 AM CDT Post-op Diagnoses: ? - The entire examined colon is no rmal. ? - Scar in the distal rectum. ? - No specimens collected. Narrative [facility] - 07/01/2020 10:23 AM CDT Gonda 9 GI GI Patient Name: Yamileth Sheikh Date of : 1945 Age: 74 Gender: Female Procedure Date: 07/01/2020 Procedure: ? Colonosc opy Providers: ? Kevin Lucero MD, Donte Lara (Fellow) Referring Provider: ?Merrill Harris Pre-op Diagnoses: ?Family hist ory of colon cancer in a first-degree ? rel ative before age 60 years Recommendation: ? - Return to referring physician gayatri loza previously scheduled. Findings: ? The colon (entire [...] preparation was evaluated ? using the BBPS (Crawford Bowel Prep aration Scale) with scores of: [...] signed electronical ly. Number of Addenda: 0 Merrill Harris M.D. GI PROCEDURE ORDERABLES Performing Organization Address City/State/ZIP Code Phon e Number [employer] documented in this encounter Visit Diagnoses Diagnosis Cancer Colon Family History Screening Cancer Colon documented in this encounter Administered Medications Inactive Administered Medications - up to 3 most recent administrations Medication Order MAR Action Action Date Dose Rate Site fentaNYL injection (SUBLIMAZE) Given 07/01/2020 9:39 AM CDT 50 mcg intravenous, Code/trauma/sedation medication, Starting on Wed07/01/20 at 0939 fentaNYL injection (SUBLIMAZE) Given 07/01/2020 9:42 AM CDT 25 mcg intravenous, Code/trauma/sedation medication, Starting on Wed07/01/20 at 0942 fentaNYL injection (SUBLIMAZE) Given 07/01/2020 9:47 AM CDT 25 mcg intravenous, Code/trauma/sedation medication, Starting on Wed07/01/20 at 0947 fentaNYL injection (SUBLIMAZE) Given 07/01/2020 9:52 AM CDT 25 mcg intravenous, Code/trauma/sedation medication, Starting on Wed07/01/20 at 0952 lactated ringers New Bag 07/01/2020 9:39 AM CDT 20 mL/hr 20 mL/hr intravenous, Code/trauma/sedation continuous med, Starting on Wed07/01/20 at 0939 midazolam (PF) injection (VERSED) Given 07/01/2020 9:42 AM CDT 2 mg Code/trauma/sedation medication, Starting on Wed07/01/20 at 0939 Given 07/01/2020 9:39 AM CDT 2 mg midazolam (PF) injection (VERSED) Given 07/01/2020 9:47 AM CDT 1 mg Code/trauma/sedation medication, Starting on 9/28/20 at 0947 midazolam (PF) injection (VERSED) Given 07/01/2020 9:52 AM CDT 1 mg Code/trauma/sedation medication, Starting on Wed07/01/20 at 0952 sodium chloride 0.9 % injection Given 07/01/2020 9:39 AM CDT 5 mL intravenous, Code/trauma/sedation medication, Starting on Wed07/01/20 at 0939 sodium chloride 0.9 % injection Given 07/01/2020 9:42 AM CDT 5 mL intravenous, Code/trauma/sedation medication, Starting on Wed07/01/20 at 0942 sodium chloride 0.9 % injection Given 07/01/2020 9:52 AM CDT 5 mL intravenous, Code/trauma/sedation medication, Starting on Wed07/01/20 at 0952 documented in this encounter Care Teams Timber Deadener Relationship Specialty Start Date End Date Elsewhere, Pcp PCP - General Internal Medicine 07/03/17 documented as of this encounter
--- OUTSIDE RECORDS SUMMARY | 2022-07-30 19:55 | XMS_ITS | Encounter Summary ---
:1945 Author Organization [facility] Address [address] [place] [address] Care Team Providers Name Role Phone Elsewhere, Pcp Primary Care Provider Unavailable Encounter Details Date Type Department Care Team Description 05/16/2020 Hospital Encounter Department of Merrill Harris Leuk ocytosis Laboratory Medicine and M.Norma Pathology, [address] [phone] [place] [address] [place] [phone] Social History Tobacco Use Types [...] have completed or the highest Armando, MEd, TREATING AND PUMPING SUPERVISOR, ALL) degree you have received? Sex [...] visit Aesthetic Medicine and Juanita Vaz, Surgery ARCHITECTURE DRAFTER, C.N.P. [address] [place] [phone] (Wo rk) 09/08/2022 Comprehensive Visit Aesthetic Medicine and Lucero Pritchard, Surgery MJayda, Ph.D. [address] [place] [phone] (Charlotte rk) documented as of this encounter Procedures Procedure Name Priority Date/Time Associated Diagnosis Comme nts SPSMA RESULT Routine 05/16/2020 4:14 PM Leukocytosis Results f or this CDT procedure are i n the results section . documented in this encounter Results (ABNORMAL) Morphology Evaluation (Special Smear) (05/16/2020 4:14 PM CDT) [facility] gist Method Time Signature Neutrophilic Segs 90 (H) 50 - 75 % 05/16/2020 [facility] 5:54 PM CDT Lymphocytes 5 (L) 18 - 42 % 05/16/2020 PM 5:54 PM CDT Monocytes 5 2 - 11 % 05/16/2020 [facility] 5:54 PM CDT Interpretation SeeComment 05/16/2020 [facility] 5:54 PM CDT Comment: Peripheral blood smear reviewed ; no diagnostic abnormalities are seen. Reviewed by: Michelle 05/16/2020 5:54 PM CDT [facility] Specimen Anatomical Collection Method Collection Time Receive d Time (Source) Location / / Volume Laterality Blood (Blood, 05/16/2020 4:14 PM 05/16/20 20 4:49 Venous) CDT PM CDT Merrill Harris M.D. LAB BLOOD ADD-ON Performing Organization Address City/State/ZIP Code Phon e Number [facility] - [address] [place], [place] [address] [place] [address] [facility] 200 [facility] documented in this encounter Visit Diagnoses Diagnosis Leukocytosis documented in this encounter Care Teams Mock Up Assembler Relationship Specialty Start Date End Date Elsewhere, Pcp PCP - General Internal Medicine 07/03/17 documented as of this encounter
--- OUTSIDE RECORDS SUMMARY | 2022-07-30 19:56 | XMS_ITS | Encounter Summary ---
:1945 Author Organization [facility] Address [address] [place] [address] Care Team Providers Name Role Phone Elsewhere, Pcp Primary Care Provider Unavailable Encounter Details Date Type Department Care Team Description 11/07/2019 Procedure visit Department of Juanita Vza Varicose Vein Lower Vascular Medicine in R, FINAL INSPECTOR MOVEMENT ASSEMBLY, C. N.P. Extremity With Pain [employer], [place] [address] [facility] Bilateral [address] [place] [phone] Social History Tobacco Use Types Packs/Day Years [...] place to sleep or slept in a fdc (including now)? Education Answer Date Recorded What is the highest level of school Master's degree (e.g., M A, MS, 03/30/2019 you have completed or the highest Armando, MEd, COOK APPRENTICE PASTRY, ALL) degree you have received? Sex Assigned at Date Recorded Female 07/26/2020 9:06 PM CDT documented as of this encounter Last Filed Vital Signs Vital Sign Reading Time Taken Comments Blood Pressure 122/77 11/07/2019 3:00 PM NAIL GALVANIZER Pulse 78 11/07/2019 3:00 PM NAIL GALVANIZER Temperature - - Respiratory Rate - - Oxygen Saturation - - Inhaled Oxygen Concentration - - Weight 65.6 kg (144 lb 10 oz) 11/07/2019 3:00 PM NAIL GALVANIZER Height 166.9 cm (5' 5.71) 11/07/2019 3:00 PM NAIL GALVANIZER Body Mass Index 23.55 11/07/2019 3:00 PM NAIL GALVANIZER documented in this encounter Procedure Notes Juanita Vaz, CLAUDIA, C.N.P. - 11/07/2019 3:00 PM CSTAssociated Order(s): SCLEROTHERAPY Procedure(s): SCLEROTHERAPY Pre-Procedure Diagnose(s): Varicose [...] of legs were obtained after consent using [facility] approvedand secure device and loaded to patient's medical record. Brief History: Ms. Sheikh returns for a repeated session of sclerotherapy in the setting of continued varicose veins with pain bilateral lower extremities. She has noted some retained clot formation within the superficial vessels the left anterior tibial region and posterior popliteal regions bilaterally. Preparation of legs: Agent used: Isopropyl ETOH was used to cleanse the legs Agent used: Polidocanol 0.1% injecting a total of 22 cc Number of injections: Approximately 50-75 injections [place] used: 30 gauge Complications: No apparent complications [...] all questions were answered to apparent satisfaction. GALVANIZER documented in this encounter Plan of Treatment Upcoming Encounters Date Type Specialty Care Team Description 09/08/2022 Procedure visit Aesthetic Medicine and Juanita Vaz, Surgery CLAUDIA, C.N.P. [address] [place] [phone] (Charlotte bentley) 09/08/2022 Comprehensive Visit Aesthetic Medicine and Lucero Pritchard, Surgery MJayda, Ph.D. [address] [place] [phone] (Charlotte bentley) documented as of this encounter Procedures Procedure Name Priority Date/Time Associated Diagnosis Comme nts SCLEROTHERAPY Routine 11/07/2019 3:00 PM Varicose Vein Lower R esults for this NAIL GALVANIZER Extremity With Pain procedur e are in the Bilateral results section . documented in this encounter Results Sclerotherapy (11/07/2019 3:00 PM NAIL GALVANIZER) Narrative [facility] - 11/07/2019 3:00 PM NAIL GALVANIZER Juanita Vaz APRN, C.N.P. ? 11/07/2019 ??4:52 PM Proceduralist: ?JAN Informed consent obtained: ??Yes [...] of legs were obtained after consent using [facility] approved and s [employer] device and loaded to patient's medical record. ?? Brief History: Ms. Sheikh returns for a repeated session of sclerotherapy in the setting of continue d varicose veins with pain bilateral lower extremities. ??She has noted some retained clot formation within the superficial ve ssels the left anterior tibial region and posterior popliteal re gions bilaterally. Preparation of legs: Agent used: ??Isopr opyl ETOH was used to cleanse the legs Agent used: ??Polidocanol 0.1% injecting a total of 22 cc Number of injections: ??Approximately 50 -75 injections [place] used: 30 gauge Complications: ??No apparent complicatio ns Recommendations: The patient left the ro om with full-length graduated elastic compression stockings in place and in excellent condition. Utilization of thigh high com pression stockings for the next 24 hours straight; [...] With Pain Bilateral documented in this encounter Administered Medications Inactive Administered Medications - up to 3 most recent administrations Medication Order MAR Action Action Date Dose Rate Site polidocanol 1 % (20 mg/2 mL) Given 11/07/2019 3:19 PM NAIL GALVANIZER 2 mL injection 2 mL (ASCLERA) 2 mL, intravenous, Once, On Wed11/07/19 at 1530, For 1 dose, Dilute 20 mg in 20 cc's of saline and administer to effect documented in this encounter Care Teams Flag Signaler Relationship Specialty Start Date End Date Elsewhere, Pcp PCP - General Internal Medicine 07/03/17 documented as of this encounter
--- OUTSIDE RECORDS SUMMARY | 2022-07-30 19:56 | XMS_ITS | Encounter Summary ---
:1945 Author Organization [facility] Address [address] [place] [address] Care Team Providers Name Role Phone Elsewhere, Pcp Primary Care Provider Unavailable Encounter Details Date Type Department Care Team Description 06/08/2019 Diagnostic Department of [place], Loss Hearing Otorhinolaryngology in [place], [place] Emerald Harris.CAnaliCAnali-Gage Bilateral (Primary [address] [facility] [address]) [place] [address] [facility] [phone] [place] [address] Social History Tobacco Use Types [...] have completed or the highest Armando, MEd, SUPERVISORY CLERK, ALL) degree you have received? Sex Assigned at Date Recorded Female 07/26/2020 9:06 PM CDT documented as of this encounter Progress Notes Екатерина Echeverria Au.D. - 06/08/2019 2:00 PM CDT SUBJECTIVE REFERRAL: Self. CHIEF COMPLAINT / REASON FOR VISIT Hearing aid fitting follow-up. HISTORY ?? Yamileth Sheikh is a 73 y.o.female with an asymmetrical sensorineural hearing loss, left [...] ?? Patient was fit with amplification on??04/27/2019. Hearing Aid Information Left Right Shoe Folder LocaMap Model Linx 3D 577 Linx 3D 577 Style BTE (jbfbcl-zqw-tvb) BTE (zwmbfa-app-mwp) Serial Number [id number] Battery Size 13 13 ? Coupling Custom earmold, EDUCATION SITE MANAGER#5 Custom earmold, EDUCATION SITE MANAGER#5 ? Warranty Date 05/12/2022 05/12/2022 Trial Period End Date 06/12/2019 ?? Ms. Sheikh reports the left earmold is uncomfortable. She also notes the left tinnitus masking stimulus is not loud enough to mask her tinnitus. ASSESSMENT Today we elected to modify the left earmold first before adjusting the sound quality. Earmold impression obtained for the left ear without incident. A remake earmold will be ordered from the physician practice administrator. Recommended return visit in three weeks. #1 Loss Hearing Sensorineural Bilateral documented in this encounter Plan of Treatment Upcoming Encounters Date Type Specialty Care Team Description 09/08/2022 Procedure visit Aesthetic Medicine and Juanita Vaz, Surgery SCIENTIFIC PROGRAMMER, C.N.P. [address] [place] [phone] (Wo rk) 09/08/2022 Comprehensive Visit Aesthetic Medicine and Lucero Pritchard, Surgery M.DAnali, Ph.D. [address] [place] [phone] (Wo rk) documented as of this encounter Visit Diagnoses Diagnosis Loss Hearing Sensorineural Bilateral - P rimary documented in this encounter Care Teams Pharmacy Associate Relationship Specialty Start Date End Date Elsewhere, Pcp PCP - General Internal Medicine 07/03/17 documented as of this encounter
--- OUTSIDE RECORDS SUMMARY | 2022-07-30 19:56 | XMS_ITS | Encounter Summary ---
:1945 Author Organization [facility] Address [address] [place] [address] Care Team Providers Name Role Phone Elsewhere, Pcp Primary Care Provider Unavailable Encounter Details Date Type Department Care Team Description 07/06/2019 Ancillary Procedure Department of Vascular Social History [...] or relatives? How often do you attend buddhism or More than 4 times per year 01/28/2021 orthodox services? Do you belong to any clubs or Yes 01/28/2021 organizations such as buddhism groups, unions, fraternal or athletic groups, or [...] have completed or the highest Armando, MEd, ELEMENTARY TEACHER, ALL) degree you have received? Sex Assigned at Date Recorded Female 07/26/2020 9:06 PM CDT documented as of this encounter Plan of Treatment Upcoming Encounters Date Type Specialty Care Team Description 09/08/2022 Procedure visit Aesthetic Medicine and Juanita Vaz, Surgery RECORDS MANAGEMENT ANALYST, C.N.P. [address] [place] [phone] (Charlotte bentley) 09/08/2022 Comprehensive Visit Aesthetic Medicine Lucero Mckeon, Surgery M.DAnali, Ph.D. [address] [place] [phone] (Charlotte bentley) documented as of this encounter Procedures Procedure Name Priority Date/Time Associated Diagnosis Comme nts VASCULAR IMAGE EXAM Routine 07/06/2019 8:05 AM Re sults for this CDT procedure are i n the results section. documented in this encounter Results Legs-Vascular Image Exam (07/06/2019 8:05 AM CDT) Specimen (Source) Anatomical Collection Method Collection Time Re ceived Time Location / / Volume Laterality 07/06/2019 8:04 AM CDT Narrative [facility] - 07/06/2019 8:06 AM CDT This order has been created [...] on filedocumented in this encounter Care Teams Janitor Head Relationship Specialty Start Date End Date Elsewhere, Pcp PCP - General Internal Medicine 07/03/17 documented as of this encounter
--- OUTSIDE RECORDS SUMMARY | 2022-07-30 19:56 | XMS_ITS | Encounter Summary ---
:1945 Author Organization [facility] Address [address] [place] [address] Care Team Providers Name Role Phone Elsewhere, Pcp Primary Care Provider Unavailable Encounter Details Date Type Department Care Team Description 06/13/2019 Education Menopause and Women's Sexual Tro ttLucero parsons R.N. [facility] in [place], [address] [place] [address] [place] [phone] [place] [address] [phone] Social History Tobacco Use Types Packs/Day Years [...] More than 4 times per year 01/28/2021 lutheran services? Do you belong to any clubs [...] have completed or the highest Armando, MEd, MEASUREMENT COORDINATOR, ALL) degree you have received? Sex Assigned at Date Recorded Female 07/26/2020 9:06 PM CDT documented as of this encounter Progress Notes Lucero Rodriguez R.N. - 06/13/2019 3:00 PM CDT SUBJECTIVE REASON FOR VISIT Yamilethnoris Devlinbeba Sheikh seen today for initial patient education Referring provider: Dr. eYsica Villarreal ASSESSMENT/PLAN Patient education provided to: patient Teaching methods included: discussion, explanation and printed material Discussion included: bone health, vaginal health and moisturizers Education materials were given to the patient: yes documented in this encounter Plan of Treatment Upcoming Encounters Date Type Specialty Care Team Description 09/08/2022 Procedure visit Aesthetic Medicine and Juanita Vaz, Surgery CERTIFIED PROCEDURAL CODER, C.N.P. [address] [place] [phone] (Wo rk) 09/08/2022 Comprehensive Visit Aesthetic Medicine and Lucero Pritchard, Surgery M.DAnali, Ph.D. [address] [place] [phone] (Wo rk) documented as of this encounter Visit Diagnoses Not on filedocumented in this encounter Care Teams Agronomy Location Manager Relationship Specialty Start Date End Date Elsewhere, Pcp PCP - General Internal Medicine 07/03/17 documented as of this encounter
--- OUTSIDE RECORDS SUMMARY | 2022-07-30 19:56 | XMS_ITS | Encounter Summary ---
:1945 Author Organization [facility] Address [address] [place] [address] Care Team Providers Name Role Phone Elsewhere, Pcp Primary Care Provider Unavailable Encounter Details Date Type Department Care Team Description 06/14/2019 Clinical Communication Menopause and Women's Helena Villarreal, [facility] D.O., M.P.H . in [address] [place] [phone] [place], [place] [phone] (Work) [phone] Social History Tobacco Use Types Packs/Day Years [...] More than 4 times per year 01/28/2021 cheondoism services? Do you belong to any clubs [...] have completed or the highest Armando, MEd, CORN LAB TECHNICIAN, ALL) degree you have received? Sex Assigned at Date Recorded Female 07/26/2020 9:06 PM CDT documented as of this encounter Plan of Treatment Upcoming Encounters Date Type Specialty Care Team Description 09/08/2022 Procedure visit Aesthetic Medicine and Juanita Vaz, Surgery GRIND OPERATOR, C.N.P. [address] [place] [phone] (Wo rk) 09/08/2022 Comprehensive Visit Aesthetic Medicine and Lucero Pritchard, Surgery M.DAnali, Ph.D. [address] [place] [phone] (Wo rk) documented as of this encounter Visit Diagnoses Not on filedocumented in this encounter Care Teams Postpartum Rn Relationship Specialty Start Date End Date Elsewhere, Pcp PCP - General Internal Medicine 07/03/17 documented as of this encounter
--- OUTSIDE RECORDS SUMMARY | 2022-07-30 19:56 | XMS_ITS | Encounter Summary ---
:1945 Author Organization [facility] Address [address] [place] [address] Care Team Providers Name Role Phone Elsewhere, Pcp Primary Care Provider Unavailable Encounter Details Date Type Department Care Team Description 07/25/2019 Clinical Communication Division of Merrill Harris Endocrinology in [place], [place] [address] [facility] [address] [place] [phone] Social History Tobacco Use Types Packs/Day Years [...] More than 4 times per year 01/28/2021 holiness services? Do you belong to any clubs [...] have completed or the highest Armando, MEd, WET PROCESS MILLER HEAD, ALL) degree you have received? Sex Assigned at Date Recorded Female 07/26/2020 9:06 PM CDT documented as of this encounter Miscellaneous Notes Telephone Encounter - Lea Massey - 07/27/2019 10:33 AM CDT Left a message for patient to call back. Telephone Encounter - Merrill Harris M.D. - 07/25/2019 9:04 PM CDT I ordered her studies. Ms. Sheikh can return for her follow-up appointment anytime during the nextyear. Telephone Encounter - Nivia Roy - 07/25/2019 2:56 PM CDT S. Pt called and would like her yearly follow up with you. B. Pt last saw you on Aug 29 2018. Pt is not scheduled yet. No orders in system. A. Would you like to see this pt back and if so, would you like any testing? R. Please advise/PASS to call pt back to schedule. Thank you, Yamileth marino Lea [phone] documented in this encounter Plan of Treatment Upcoming Encounters Date Type Specialty Care Team Description 09/08/2022 Procedure visit Aesthetic Medicine and Juanita Vaz, Surgery ELDER COUNSELOR, C.N.P. [address] [place] [phone] (Charlotte bentley) 09/08/2022 Comprehensive Visit Aesthetic Medicine Lucero Mckeon, Surgery MJayda, Ph.D. [address] [place] [phone] (Charlotte bentley) documented as of this encounter Visit Diagnoses Not on filedocumented in this encounter Care Teams Mexican Food Maker Relationship Specialty Start Date End Date Elsewhere, Pcp PCP - General Internal Medicine 07/03/17 documented as of this encounter
--- OUTSIDE RECORDS SUMMARY | 2022-07-30 19:56 | XMS_ITS | Encounter Summary ---
:1945 Author Organization [facility] Address [address] [place] [address] Care Team Providers Name Role Phone Elsewhere, Pcp Primary Care Provider Unavailable Reason for Visit Reason Comments Patient Education Appointment Request (Routine) - Closed Specialty Diagnoses / Procedures Referred By Contact Refer red To Contact Patient Education Referral ID Status Reason Start Date Expiration Date Visits Requ ested Visits Authorized [id number] Closed 04/26/2019 04/25/2020 1 1 Encounter Details Date Type Department Care Team Description 04/27/2019 Education Department of Patient Margot Jordan R.N. Education in [place], [facility] [address] [place], [place] [address] [facility] [address] [place] [address] [phone] Social History Tobacco Use Types Packs/Day Years [...] or relatives? How often do you attend temple or More than 4 times per year 01/28/2021 worship services? Do you belong to any clubs or Yes 01/28/2021 organizations such as temple groups, unions, fraternal or athletic groups, or [...] have completed or the highest Armando, MEd, TRANSFER CAR OPERATOR, ALL) degree you have received? Sex Assigned at Date Recorded Female 07/26/2020 9:06 PM CDT documented as of this encounter Plan of Treatment Upcoming Encounters Date Type Specialty Care Team Description 09/08/2022 Procedure visit Aesthetic Medicine and Juanita Vaz, Surgery WET PROCESS MILLER HEAD, C.N.P. [address] [place] [phone] (Charlotte bentley) 09/08/2022 Comprehensive Visit Aesthetic Medicine Lucero Mckeon, Surgery M.D., Ph.D. [address] [place] [phone] (Charlotte bentley) documented as of this encounter Visit Diagnoses Not on filedocumented in this encounter Care Teams Wallet Assembler Relationship Specialty Start Date End Date Elsewhere, Pcp PCP - General Internal Medicine 07/03/17 documented as of this encounter
--- OUTSIDE RECORDS SUMMARY | 2022-07-30 19:56 | XMS_ITS | Encounter Summary ---
:1945 Author Organization [facility] Address [address] [place] [address] Care Team Providers Name Role Phone Elsewhere, Pcp Primary Care Provider Unavailable Reason for Visit Reason Onset Date Comments Pre-visit Testing Orders 03/22/2019 Encounter Details Date Type Department Care Team Description 03/22/2019 Clinical Section of Christine Gray Pre-visit Thuy wakefield Communication Preventive, M, STARS SPECIALIST, Orders Transportation and C.N.P., D.N.P . Occupational Medicine [address] [facility] in [facility] [phone] [place] [address] [place], [place] (Work) [phone] Social History Tobacco Use Types Packs/Day Years [...] or relatives? How often do you attend mosque or More than 4 times per year 01/28/2021 voodoo services? Do you belong to any clubs or Yes 01/28/2021 organizations such as mosque groups, unions, fraternal or athletic groups, or [...] place to sleep or slept in a care home (including now)? Sex Assigned at Date Recorded Female 07/26/2020 9:06 PM CDT documented as of this encounter Miscellaneous Notes Telephone Encounter - Denisha Mota Jody - 03/22/2019 9:12 AM CDT psc mammo documented in this encounter Plan of Treatment Upcoming Encounters Date Type Specialty Care Team Description 09/08/2022 Procedure visit Aesthetic Medicine and Juanita Vaz, Surgery STARS SPECIALIST, C.N.P. [address] [place] [phone] (Charlotte bentley) 09/08/2022 Comprehensive Visit Aesthetic Medicine and Lucero Pritchard, Surgery M.Nroma, Ph.D. [address] [place] [phone] (Charlotte bentley) documented as of this encounter Results BI Breast Screening Bilateral with Tomosynthesis (06/08/2019 1:03 PM CDT) Anatomical Region Laterality Modality Breast, Breast Imaging RST LOS, Breast Imaging ARZ LOS, [place] st Bilateral Mammography Imaging [facility] Specimen (Source) Anatomical Collection Method Collection Time Re ceived Time Location / / Volume Laterality 06/08/2019 5:04 PM CDT Impressions 06/08/2019 5:07 PM CDT Benign. RECOMMENDATION: ??Annual Screening Mammo gram ASSESSMENT: ??BI-RADS: 2: Benign. Narrative 06/08/2019 5:07 PM CDT EXAM: ??BI BREAST SCREENING BILATERAL WITH TOMOSYNTHESIS Current study was evaluated with a Compu ter Aided Detection (CAD) system. INDICATION: ??Screening mammogram. COMPARISON: ??Prior exam(s) were availab le and reviewed for comparison. DENSITY: ??b. There are scattered areas of fibroglandular density. FINDINGS: ??No findings of malignancy. P ostoperative changes from reduction mammoplasty. No significant change since prior exam. Procedure Note Sharlene Davies M.D. - 06/08/2019Formatt ing of this note might be different from the original. EXAM: BI BREAST SCREENING BILATERAL WITH TOMOSYNTHESIS Current study was evaluated with a Compu ter Aided Detection (CAD) system. INDICATION: Screening mammogram. COMPARISON: Prior exam(s) were available and reviewed for comparison. DENSITY: b. There are scattered areas of fibroglandular density. FINDINGS: No findings of malignancy. Pos toperative changes from reduction mammoplasty. No significant change since prior exam. IMPRESSION: Benign. RECOMMENDATION: Annual Screening Mammogr am ASSESSMENT: BI-RADS: 2: Benign. Christine Gray APRN C.N.P., D.N.P. IMG BI PROCEDURES documented in this encounter Visit Diagnoses Diagnosis Screening Mammogram Average Risk Patient - Primary Screening Mammogram Average Risk Patient documented in this encounter Care Teams Chair Lift Operator Relationship Specialty Start Date End Date Elsewhere, Pcp PCP - General Internal Medicine 07/03/17 documented as of this encounter
--- OUTSIDE RECORDS SUMMARY | 2022-07-30 19:56 | XMS_ITS | Encounter Summary ---
:1945 Author Organization [facility] Address [address] [place] [address] Care Team Providers Name Role Phone Elsewhere, Pcp Primary Care Provider Unavailable Encounter Details Date Type Department Care Team Description 02/16/2019 Hospital Encounter Department of Manisha Mead Bilateral Radiology, Diogo Kaur M.D. [place], in [address] [place] [phone] [place], [place] [phone] (Work) [phone] Social History Tobacco Use Types Packs/Day Years [...] More than 4 times per year 01/28/2021 rastafari services? Do you belong to any clubs [...] or slept in a retirement (including now)? Sex Assigned at Date Recorded Female 07/26/2020 9:06 PM CDT documented as of this encounter Last Filed Vital Signs Vital Sign Reading Time Taken Comments Blood Pressure - - Pulse - - Temperature - - Respiratory Rate - - Oxygen Saturation - - Inhaled Oxygen Concentration - - Weight 65.8 kg (145 lb) 02/16/2019 11:14 AM CDT Height 167.6 cm (5' 6) 02/16/2019 11:14 AM CDT Body Mass Index 23.4 02/16/2019 11:14 AM CDT documented in this encounter Medications at Time [...] application 10 % cream topically at bedtime. amoxicillin (AMOXIL) 500 Take 2 capsules by 0 05/17/2020 mg capsule mouth as needed. ciclopirox (LOPROX) 0.77 Apply topically 2 0 01/0306/13/2019 % cream (two) times a day. omega-3 acid ethyl esters Take 1 capsule by 0 09/10/2020 (LOVAZA) 1 gram capsule mouth as needed. omega-3 fatty acids/fish Take 2 capsules by 0 06/13/2019 oil (OMEGA 3 FISH OIL mouth daily. ORAL) turmeric root extract 500 Take 1 tablet by 0 06/13/2019 mg capsule mouth. documented as of this encounter Plan of Treatment Upcoming Encounters Date Type Specialty Care Team Description 09/08/2022 Procedure visit Aesthetic Medicine and Juanita Vaz, Surgery CRYSTALLOGRAPHY TEACHER, C.N.P. [address] [place] [phone] (Charlotte bentley) 09/08/2022 Comprehensive Visit Aesthetic Medicine and Lucero Pritchard Surgery MJayda, Ph.D. [address] [place] [phone] (Charlotte bentley) documented as of this encounter Procedures Procedure Name Priority Date/Time Associated Comments Diagnosis MR BRAIN WITHOUT RAD - Routine 02/16/2019 12:25 Tinnitus Result s for this AND WITH IV (most inpatients PM CDT Bilateral procedure a re in CONTRAST and all the results outpatients) section. CREATININE, POCT, Routine 02/16/2019 11:22 Result s for this B AM CDT procedure are i n the results section. CREATININE, POCT, Routine 02/16/2019 11:22 Result s for this B AM CDT procedure are i n the results section. documented in this encounter Results MR Brain without and with IV Contrast (02/16/2019 12:25 PM CDT) Anatomical Region Laterality Modality Head, Brain, Neuroradiology RST LOS, Neuroradiology BRII N/A Magnetic Resonance LOS, Neuroradiology [facility] Specimen (Source) Anatomical Collection Method Collection Time Re ceived Time Location / / Volume Laterality 02/16/2019 12:47 PM CDT Impressions 02/16/2019 12:53 PM CDT IMPRESSION: No evidence for vestibular schwannoma/acoustic neuroma. Narrative 02/16/2019 12:53 PM CDT EXAM: MR BRAIN WITHOUT AND WITH IV CONTRAST COMPARISON: 05/21/[address] FINDINGS: Dedicated imaging of the internal audito ry canals demonstrates unremarkable cranial nerve VII and VIII complexes jose aterally. No cerebellopontine angle or internal auditory canal mass. No evidenc e for pathologic cranial nerve or temporal bone enhancement. Inner ear str uctures demonstrate expected fluid signal intensity. No mass, hemorrhage, or extra-axial flui d collections. ??Mild generalized cerebral atrophy. Few small foci of nons pecific T2/FLAIR hyperintense signal in the cerebral white matter most consisten t with mild chronic small vessel ischemic changes. The cerebellum is unre markable. The pituitary gland is unremarkable. The major intracranial vas cular flow voids are maintained. The orbits are unremarkable. The calvarium a nd skull base are unremarkable. ??The paranasal sinuses and mastoid air cells are clear. Procedure Note Juvencio Gergg M.D. - 02/16/2019Form atting of this note might be different from the original. EXAM: MR BRAIN WITHOUT AND WITH IV CONTR AST COMPARISON: 05/21/[address] FINDINGS: Dedicated imaging of the internal audito ry canals demonstrates unremarkable cranial nerve VII and VIII complexes jose aterally. No cerebellopontine angle or internal auditory canal mass. No evidenc e for pathologic cranial nerve or temporal bone enhancement. Inner ear str uctures demonstrate expected fluid signal intensity. No mass, hemorrhage, or extra-axial flui d collections. Mild generalized cerebral atrophy. Few small foci of nons pecific T2/FLAIR hyperintense signal in the cerebral white matter most consisten t with mild chronic small vessel ischemic changes. The cerebellum is unre markable. The pituitary gland is unremarkable. The major intracranial vas cular flow voids are maintained. The orbits are unremarkable. The calvarium a nd skull base are unremarkable. The paranasal sinuses and mastoid air cells are clear. IMPRESSION: No evidence for vestibular s chwannoma/acoustic neuroma. Manisha Mead M.D. IMG MRI PROCEDURES Creatinine, POCT (02/16/2019 11:22 AM CDT) P athologist Signature Creatinine, 0.7 0.6 - 1.0 02/16/2019 POC VICENTA POCT, B mg/dL 11:25 AM CDT PERFORMING LABS Comment: ----ADDITIONAL INFORMATION---- Performed at the Point of Care Specimen Anatomical Collection Method Collection Time Receive d Time (Source) Location / / Volume Laterality Blood 02/16/2019 11:22 02/16/2019 AM CDT 11:25 AM CDT Unknown Provider LAB POCT ORDERABLES - DEVICE Performing Organization Address [facility] Phon e Number POC [place] PERFORMING LABS [address] [place] [address] Creatinine, POCT (02/16/2019 11:22 AM CDT) P athologist Signature eGFR-Black/Afr >90 >=60 02/16/2019 POC RST ican [place], mL/min/BSA 11:25 AM CDT [facility]STIAN POCT OUTPATIENT LABS Comment: ----ADDITIONAL INFORMATION---- Estimated GFR calculated using the 2009 CKD_EPI creatinine equation. eGFR Non-Black/ 87 >=60 mL/min/BSA 02/16/2019 11:25 POC RST CHRISTIAN [place], POCT AM CDT OUTPATIENT LABS Comment: ----ADDITIONAL INFORMATION---- Estimated GFR calculated using the 2009 CKD_EPI creatinine equation. Specimen Anatomical Collection Method Collection Time Receive d Time (Source) Location / / Volume Laterality Blood 02/16/2019 11:22 02/16/2019 AM CDT 11:25 AM CDT Unknown Provider LAB POCT ORDERABLES - DEVICE Performing Organization Address [facility] Phon e Number POC RST [facility] OUTPATIENT [address] [place], [place] [address] LABS documented in this encounter Visit Diagnoses Diagnosis Tinnitus Bilateral documented in this encounter Administered Medications Inactive Administered Medications - up to 3 most recent administrations Medication Order MAR Action Action Date Dose Rate Site gadobutrol injection 0.5-15 mL Given 02/16/2019 12:15 PM CDT 7 m L (GADAVIST) 0.5-15 mL, intravenous, Once in imaging, contrast, Starting on Jessica 02/16/19 at 1112, For 1 dose, Imaging Protocol Orders, Dose per Radiant Medication Guidelines documented in this encounter Care Teams Wood Web Weaving Machine Operator Relationship Specialty Start Date End Date Elsewhere, Pcp PCP - General Internal Medicine 07/03/17 documented as of this encounter
--- OUTSIDE RECORDS SUMMARY | 2022-07-30 19:56 | XMS_ITS | Encounter Summary ---
:1945 Author Organization [facility] Address [address] [place] [address] Care Team Providers Name Role Phone Elsewhere, Pcp Primary Care Provider Unavailable Encounter Details Date Type Department Care Team Description 07/06/2019 Procedure visit Department of Juanita Vaz Varicose Vein Lower Vascular Medicine in R, COMBAT SYSTEMS ENGINEER, C. N.P. Extremity With Pain [place], [place] [address] [facility] Bilateral [address] [place] [phone] Social History Tobacco Use Types Packs/Day Years [...] More than 4 times per year 01/28/2021 mormon services? Do you belong to any clubs [...] have completed or the highest Armando, MEd, LANDSCAPE MANAGER, ALL) degree you have received? Sex Assigned at Date Recorded Female 07/26/2020 9:06 PM CDT documented as of this encounter Last Filed Vital Signs Vital Sign Reading Time Taken Comments Blood Pressure 92/58 07/06/2019 7:51 AM CDT Pulse 64 07/06/2019 7:51 AM CDT Temperature - - Respiratory Rate - - Oxygen Saturation - - Inhaled Oxygen Concentration - - Weight 63.2 kg (139 lb 5.3 oz) 07/06/2019 7:47 AM CDT Height 170.3 cm (5' 7.05) 07/06/2019 7:47 AM CDT Body Mass Index 21.79 07/06/2019 7:47 AM CDT documented in this encounter Procedure Notes Juanita Vaz, CLAUDIA, C.N.P. - 07/06/2019 7:45 AM CDTAssociated Order(s): SCLEROTHERAPY Procedure(s): SCLEROTHERAPY [...] were obtained after consent using [facility] approvedand secure device and loaded to patient's medical record. Brief History: Ms. Sheikh presents for an initial session of sclerotherapy in the setting prominent, large, bulging varicosities bilateral lower extremities. Preparation of legs: Agent used: Isopropyl ETOH was used to cleanse the legs Agent used: Sotradecol 0.1% injecting a total of 30 cc Number of injections: Approximately 30-50 injections to bilateral lower extremities [place] used: 30 gauge Complications: No apparent complications [...] and Juanita Vaz, Surgery CLAUDIA, C.N.P. [address] [place] [phone] (Wo mc) 09/08/2022 Comprehensive Visit Aesthetic Medicine and Lucero Pritchard, Surgery Francesca, Ph.D. [address] [place] [phone] (Charlotte bentley) documented as of this encounter Procedures Procedure Name Priority Date/Time Associated Diagnosis Comme nts SCLEROTHERAPY Routine 07/06/2019 7:45 AM Varicose Vein Lower R esults for this CDT Extremity With Pain procedur e are in the Bilateral results section . documented in this encounter Results Sclerotherapy (07/06/2019 7:45 AM CDT) Narrative MMODAL - 07/06/2019 7:45 AM CDT Juanita Vaz APRN, C.N.P. ? 07/06/2019 12:50 PM Proceduralist: ?JAN Informed consent obtained: ??Yes [...] were obtained after consent using [facility] approved and s Golimi device and loaded to patient's medical record. ?? Brief History: Ms. Sheikh presents for an initial session of sclerotherapy in the setting prominent, large, bulging varicosities bilateral lower extremities . Preparation of legs: Agent used: ??Isopr opyl ETOH was used to cleanse the legs Agent used: ?? Sotradecol 0.1% injecting a total of 30 cc Number of injections: ??Approximately 30 -50 injections to bilateral lower extremities [place] used: 30 gauge Complications: ??No apparent complicatio [...] Bilateral documented in this encounter Care Teams Gift Consultant Relationship Specialty Start Date End Date Elsewhere, Pcp PCP - General Internal Medicine 07/03/17 documented as of this encounter
--- OUTSIDE RECORDS SUMMARY | 2022-07-30 19:56 | XMS_ITS | Encounter Summary ---
:1945 Author Organization [facility] Address [address] [place] [address] Care Team Providers Name Role Phone Elsewhere, Pcp Primary Care Provider Unavailable Reason for Referral Outpatient (Routine) - Closed Specialty Diagnoses / Procedures Referred By Contact Refer red To Contact Endocrinology Diagnoses Osteoporosis Merrill Harris M.D. [place] [address] [place] [phone] Referral ID Status Reason Start Date Expiration Date Visits Requ ested Visits Authorized [id number] Closed 07/25/2019 07/24/2020 1 1 Scheduling Instructions Schedule 60 minute appointment. Encounter Details Date Type Department Care Team Description 07/25/2019 Orders Only Division of Merrill Harris, Emily s (Primary Dx); Endocrinology in M.D. Height Loss; [place], [place] [address] [facility] [address] [place] [phone] Social History Tobacco Use Types Packs/Day Years [...] have completed or the highest Armando, MEd, HOME HELP AIDE, ALL) degree you have received? Sex Assigned at Date Recorded Female 07/26/2020 9:06 PM CDT documented as of this encounter Plan of Treatment Upcoming Encounters Date Type Specialty Care Team Description 09/08/2022 Procedure visit Aesthetic Medicine and Juanita Vaz, Surgery ETHANOL OPERATIONS MANAGER, C.N.P. [address] [place] [phone] (Wo rk) 09/08/2022 Comprehensive Visit Aesthetic Medicine Lucero Mckeon, Surgery M.D., Ph.D. [address] [place] [phone] (Wo rk) Scheduled Referrals Name Type Priority Associated Diagnoses [facility] office Outpatient Routine Osteoporosis Expecte d: visit (clinic) Referral 07/25/2019 (Approximate), Expires: 07/25/2022 documented as of this encounter Results (ABNORMAL) CBC without Differential (05/16/2020 2:14 PM CDT) [facility] Time Signature Hemoglobin 14.8 11.6 - 05/16/2020 [...] M.D. LAB BLOOD ADD-ON Performing Organization Address City/State/RUST Code Phon e Number [facility] - [address] [place] [phone] [facility] [place] [place] [address] Laboratories-[facility] 200 [facility] Electrophoresis, Protein (05/16/2020 2:14 PM CDT) [facility] gist Method Time Signature Total Protein, 6.6 6.3 [...] Volume Laterality Blood (Blood, 05/16/2020 2:14 PM 08/14/20 20 6:24 Venous) CDT AM CDT Merrill Harris M.D. LAB BLOOD ADD-ON Performing Organization Address City/[facility]/ZIP Code Phon e Number [facility] [address] [place] [phone] 05 SUPPORT CENTER [facility] [place] [address] Laboratory Medicine and Pathology [address] [place] [address] Dr. [place] 25-Hydroxyvitamin D2 and D3 (05/16/2020 2:14 PM CDT) athologist Signature 25-Hydroxy D2 <4.0 ng/mL 05/18/2020 SDSC 4:23 AM CDT 25-Hydroxy D3 42 ng/mL 05/18/2020 SDSC 4:23 AM CDT 25-Hydroxy D 42 ng/mL 05/18/2020 SDS Total 4:23 AM CDT Comment: ----REFERENCE VALUE---- 25-HYDROXY D TOTAL (D2+D3) Optimum level s in the healthy population are 20-50, patients with bone disease may benefit from higher levels within this r [place]. ----ADDITIONAL INFORMATION---- This test was developed and its performa nce characteristics determined by [facility] in a manner consistent with CLIA requirements. This test has not been cleared or approved by the [place] d and Drug Administration. Specimen Anatomical Collection Method Collection Time Receive d Time (Source) Location / / Volume Laterality Blood (Blood, 05/16/2020 2:14 PM 05/17/20 20 7:56 Venous) CDT AM CDT Merrill Harris M.D. LAB BLOOD ADD-ON Performing Organization Address City/[facility]/RUST Code Phon e Number [facility] [address] [place], [place] [address] SUPPORT CENTER [facility] [address] Laboratory Medicine and Pathology [address] [place] [address] Dr. PETERSON Creatinine with Estimated GFR (05/16/2020 2:14 PM CDT) athologist Signature Creatinine 0.77 0.59 - 05/16/2020 DTL 1.04 mg/dL 3:33 PM CDT eGFR-Non 77 >=60 05/16/2020 DTL Black/ mL/min/BSA 3:33 PM CDT [place] Comment: ----ADDITIONAL INFORMATION---- Estimated GFR calculated using the 2009 CKD_EPI creatinine equation. eGFR-Black/ 89 >=60 mL/min/BSA 2019 3:33 PM CDT DTL Comment: ----ADDITIONAL INFORMATION---- Estimated GFR calculated using the 2009 CKD_EPI creatinine equation. Specimen Anatomical Collection Method Collection Time Receive d Time (Source) Location / / Volume Laterality Blood (Blood, 05/16/2020 2:14 PM 05/16/20 3:08 Venous) CDT PM CDT Merrill Harris M.D. LAB BLOOD ADD-ON Performing Organization Address City/[facility]/ZIP [facility] Phon e Number [facility] - [address] Phosphorus Inorganic (05/16/2020 2:14 PM CDT) P athologist Signature Phosphorus 4.0 2.5 - 4.5 05/16/2020 DTL (Inorganic), S mg/dL 3:33 PM CDT Specimen Anatomical Collection Method Collection Time Receive d Time (Source) Location / / Volume Laterality Blood (Blood, 05/16/2020 2:14 PM 05/16/20 3:08 Venous) CDT PM CDT Merrill Harris M.D. LAB BLOOD ADD-ON Performing Organization Address City/[facility]/ZIP Code Phon e Number [facility] - 200 [place], [place] [address] 05 [place] [address] Calcium, Total (05/16/2020 2:14 PM CDT) P athologist Signature Calcium, Total, 9.7 8.8 - 10.2 05/16/2020 DTL S mg/dL 3:33 PM CDT Specimen Anatomical Collection Method Collection Time Receive d Time (Source) Location / / Volume Laterality Blood (Blood, 05/16/2020 2:14 PM 05/16/20 3:08 Venous) CDT PM CDT Merrill Harris M.D. LAB BLOOD ADD-ON Performing Organization Address City/[facility]/ZIP Code Phon e Number [facility] - 200 [place], [place] [address] [place] [address] Laboratories-[address] Parathyroid Hormone (PTH) (05/16/2020 2:14 PM CDT) P athologist Signature Parathyroid 38 15 - 65 05/16/2020 DT Hormone (PTH), S pg/mL 3:33 PM CDT Specimen Anatomical Collection Method Collection Time Receive d Time (Source) Location / / Volume Laterality Blood (Blood, 05/16/2020 2:14 PM 05/16/20 3:08 Venous) CDT PM CDT Merrill Harris M.D. LAB BLOOD ADD-ON Performing Organization Address City/State/ZIP Code Phon e Number [facility] - 200 [place], [place] [address] [place] [address] DX Lumbar Spine 2-3 Views (05/16/2020 1:15 [...] Ri ght ALEKS. Left sacral stimulator. Merrill Harris M.D. IMG DIAGNOSTIC IMAGING PROCE DURES DX Thoracic Spine [...] Ri ght ALEKS. Left sacral stimulator. Merrill Harris M.D. IMG DIAGNOSTIC IMAGING PROCE DURES documented in this encounter Visit Diagnoses Diagnosis Osteoporosis - Primary Height Loss Fatigue Osteoporosis Height Loss documented in this encounter Care Teams Display Maker Relationship Specialty Start Date End Date Elsewhere, Pcp PCP - General Internal Medicine 07/03/17 documented as of this encounter
--- OUTSIDE RECORDS SUMMARY | 2022-07-30 19:56 | XMS_ITS | Encounter Summary ---
:1945 Author Organization [facility] Address [address] [place] [address] Care Team Providers Name Role Phone Elsewhere, Pcp Primary Care Provider Unavailable Encounter Details Date Type Department Care Team Description 08/18/2019 Diagnostic Department of [place], Loss Hearing Otorhinolaryngology in [place], [place] Emerald Harris.CAnaliCAnali-Gage Bilateral (Primary [address]) [place] [phone] [facility] [phone] [place] [address] Social History Tobacco Use Types [...] More than 4 times per year 01/28/2021 jewish services? Do you belong to any clubs [...] of school Master's degree (e.g., Jody Almonte, , 03/30/2019 you have completed or the highest Armando, MEd, EXTENDED DAY TEACHER, ALL) degree you have received? Sex Assigned at Date Recorded Female 07/26/2020 9:06 PM CDT documented as of this encounter Progress Notes Екатерина Echeverria Au.D., C.C.CAnali-A - 08/18/2019 1:30 PM CST SUBJECTIVE REFERRAL: Self. CHIEF COMPLAINT/REASON FOR [...] been remade. Hearing Aid Information Left Right Information Technology Auditor Hook Mobile Model Linx 3D 577 Linx 3D 577 Style BTE (qhvjhe-xyo-kiw) BTE (zxbehv-lwm-agp) Serial Number [id number] Battery Size 13 13 ? Coupling Custom earmold, FLOOR GRINDER#5 Custom earmold, FLOOR GRINDER#5 ? Warranty Date 05/12/2022 05/12/2022 Trial Period End Date 06/12/2019 ?? Ms. Sheikh reports she has increased hearing aid use time to between 8-10 hours a day as the devices are more comfortable since earmold remake. She reports she is hearing well during her day and is alerting to more environmental sounds. Today she requests we increase the tinnitus masking signal in the left ear. ASSESSMENT/PLAN Programming changes were made to increase overall gain by 1 step in the ResBigTeamsta fitting software, and to increase tinnitus masking signal in the left hearing aid only by 1 step. Today we reviewed the procedure for obtaining follow-up care. An order was placed for recall appointment in 6 months. #1 Loss Hearing Sensorineural Bilateral ER POLICE documented in this encounter Plan of Treatment Upcoming Encounters Date Type Specialty Care Team Description 09/08/2022 Procedure visit Aesthetic Medicine and Juanita Vaz, Surgery SIDEROGRAPHIST, C.N.P. [address] [place] [phone] (Wo rk) 09/08/2022 Comprehensive Visit Aesthetic Medicine Lucero Mckeon, Surgery M.DAnali, Ph.D. [address] [place] [address] (Wo rk) Scheduled Orders Name Type Priority Associated Diagnoses Order S chedule Hearing aid check Audiology Routine Loss Hearing Sensorineu ral Expected: 02/16/2020 Bilateral (Approximate), Expires: 2021 documented as of this encounter Visit Diagnoses Diagnosis Loss Hearing Sensorineural Bilateral - P rimary documented in this encounter Care Teams Vice President [employer] Insights Relationship Specialty Start Date End Date Elsewhere, Pcp PCP - General Internal Medicine 07/03/17 documented as of this encounter
--- OUTSIDE RECORDS SUMMARY | 2022-07-30 19:56 | XMS_ITS | Encounter Summary ---
:1945 Author Organization [facility] Address [address] [place] [address] Care Team Providers Name Role Phone Elsewhere, Pcp Primary Care Provider Unavailable Encounter Details Date Type Department Care Team Description 05/18/2019 Diagnostic Department of [place], Loss Hearing Otorhinolaryngology in [place], [place] Emerald Harris.CAnaliCAnali-Gage Bilateral (Primary [address] [place] [phone] [facility] [phone] [place] [address] Social History Tobacco Use Types [...] or relatives? How often do you attend buddhist or More than 4 times per year 01/28/2021 cheondoism services? Do you belong to any clubs or Yes 01/28/2021 organizations such as buddhist groups, unions, fraternal or athletic groups, or [...] have completed or the highest Armando, MEd, DIETARY SERVICES DIRECTOR, ALL) degree you have received? Sex Assigned at Date Recorded Female 07/26/2020 9:06 PM CDT documented as of this encounter Progress Notes Екатерина Echeverria AUD, Au.D. - 05/18/2019 2:00 PM CDT SUBJECTIVE REFERRAL: Self. CHIEF COMPLAINT / REASON FOR VISIT Hearing aid fitting follow-up. HISTORY ?? Yamileth Sheikh is a 73 y.o.female with an asymmetrical sensorineural hearing loss, left ear poorer than right. She reports bilateral tinnitus. She has had an MRI which does not demonstrate retrocochlear pathology, and has been referred for hearing aids by Dr. Timmy Wynn. ?? She reports??bilateral tinnitus, and difficulty hearing male speakers. She reports most frustration with her tinnitus, and reports interest in options to help manage her tinnitus. ?? Patient was fit with amplification on 04/27/2019. Hearing Aid Information Left Right Narrow Fabric Calenderer ReSDigital Reef Model Linx 3D 577 Linx 3D 577 Style BTE (drshdj-bio-bsm) BTE (nyqujr-kgb-zns) Serial Number [id number] Battery Size 13 13 ? Coupling Custom earmold, RESEARCH PROJECT MANAGER#5 Custom earmold, RESEARCH PROJECT MANAGER#5 ? Warranty Date 05/12/2022 05/12/2022 Trial Period End Date 06/12/2019 ASSESSMENT/PLAN Ms. Sheikh reports the hearing aids are a good idea. She notes she is hearing music better more full, and has noticed male voices are easier to hear in conversation. On arrival today, both earmoldsare only partially inserted. Today modifications were made to both hearing aids to shorten canal length, and taper the canal portion. Ms. Sheikh reported an improvement. Datalogging indicated 90 hours total use, and 3 hours average daily use. She reports she has been trialing the tinnitus masking signal, but is unable to hear the response from the left hearing aid. Programming check verified the patient's concern. Today the tinnitus masking stimulus was changed from ocean waves to [place]. Today she questioned the option of changing to a tonal stimulus- I advised this would involve a change in hearing aid brand. She will contemplate whether a brand change would be helpful. Recommended return visit in two weeks to check on fit, tinntus stimulus, and overall satisfaction. #1 Loss Hearing Sensorineural Bilateral documented in this encounter Plan of Treatment Upcoming Encounters Date Type Specialty Care Team Description 09/08/2022 Procedure visit Aesthetic Medicine and Juanita Vaz, Surgery RN CLINICAL DOCUMENTATION, C.N.P. [address] [place] [phone] (Charlotte bentley) 09/08/2022 Comprehensive Visit Aesthetic Medicine Lucero Mckeon, Surgery M.D., Ph.D. [address] [place] [phone] (Charlotte bentley) documented as of this encounter Visit Diagnoses Diagnosis Loss Hearing Sensorineural Bilateral - P rimary documented in this encounter Care Teams Obedience Trainer Relationship Specialty Start Date End Date Elsewhere, Pcp PCP - General Internal Medicine 07/03/17 documented as of this encounter
--- OUTSIDE RECORDS SUMMARY | 2022-07-30 19:56 | XMS_ITS | Encounter Summary ---
:1945 Author Organization [facility] Address [address] [place] [address] Care Team Providers Name Role Phone Elsewhere, Pcp Primary Care Provider Unavailable Reason for Visit Reason Onset Date Comments Questions and request 03/20/2019 Encounter Details Date Type Department Care Team Description 03/20/2019 Clinical Communication Division of General Manisha Mead Questions and Internal Medicine Francesca Kaur request in [place], [facility] [address] [place], [place] [address] [place] [phone] [place], [place] [phone] (Work) [phone] Social History Tobacco Use Types Packs/Day Years [...] or slept in a fpc (including now)? Sex Assigned at Date Recorded Female 07/26/2020 9:06 PM CDT documented as of this encounter Miscellaneous Notes Telephone Encounter - Brooke Aguilar R.N. - 03/20/2019 4:28 PM CDT CHIEF COMPLAINT / REASON FOR CALL Questions and request HISTORY OF PRESENT ILLNESS ASSESSMENT / PLAN Spoke to Ms. Sheikh concerning head MRI questions. Pt stated, I understand my hearing is fine, but I want to know if the MRI can tell the doctors anything about my head tremors. She reported that she read the results of the head MRI on the on line portal and did not have any questions concerning those results. Disposition/Recommendation: Patient did not discuss head tremors or night sweats in her initial evaluation in November 2018. Patient provided [facility] appointment number for triage. Dr. [place] will be updated. Education: patient/caller able to teach back Caller agreeable to plan of care: yes The following references were used: nursing clinical judgement Telephone Encounter - Priya Lucia - 03/20/2019 3:23 PM CDT Background: Patient would like to discuss the MRI that she had in February 15 with a doctor who deals with head tremors. She has not seen anyone regarding the tremors of 10-15 years. She also states she has night sweats and wonders if she can see someone about them. She has appointment on 03/31 so if she can see someone that day it would work. Is this new? No Has the patient been seen here or locally for this issue? Yes What are the patient's expectations? Call patient. documented in this encounter Plan of Treatment Upcoming Encounters Date Type Specialty Care Team Description 09/08/2022 Procedure visit Aesthetic Medicine and Juanita Vaz, Surgery WOOD GANG SAWYER, C.N.P. [address] [place] [address] (Wo rk) 09/08/2022 Comprehensive Visit Aesthetic Medicine and Lucero Pritchard Surgery Francesca, Ph.D. [address] [place] [address] (Wo rk) documented as of this encounter Visit Diagnoses Not on filedocumented in this encounter Care Teams Community Engagement Representative Relationship Specialty Start Date End Date Elsewhere, Pcp PCP - General Internal Medicine 07/03/17 documented as of this encounter
--- OUTSIDE RECORDS SUMMARY | 2022-07-30 19:56 | XMS_ITS | Encounter Summary ---
:1945 Author Organization [facility] Address [address] [place] [address] Care Team Providers Name Role Phone Elsewhere, Pcp Primary Care Provider Unavailable Reason for Visit Appointment Request (Routine) - Closed Specialty Diagnoses / Procedures Referred By Contact Refer red To Contact [facility] Referral ID Status Reason Start Date Expiration Date Visits Requ ested Visits Authorized [id number] Closed 03/21/2019 03/20/2020 1 1 Encounter Details Date Type Department Care Team Description 06/13/2019 Comprehensive Visit Menopause and Yesica Villarreal (Primary Dx); Women's Sexual L, D.O., Vaginitis Atr [facility] in [place], [place] [address] [facility] [address] [place] [phone] Social History Tobacco Use Types Packs/Day Years [...] have completed or the highest Armando, MEd, DRUG ENFORCEMENT ADMINISTRATION AGENT, ALL) degree you have received? Sex Assigned at Date Recorded Female 07/26/2020 9:06 PM CDT documented as of this encounter Consult Notes Yesica Villarreal D.O., M.P.H. - 06/13/2019 2:30 PM CDT Subjective: Chief Complaint/Reason for Visit No chief complaint on file. Yamileth Sheikh is a 73 y.o. female presenting with concerns related to vaginal health. Patient is self-referred for a vaginal health consultation. Her request is to do a pelvic exam to ???make sure everything is okay?? . She is also followed by Urology and since 2010 has been treated with E-stim.As she is followed at [facility]. She sees Urology on a regular basis with a reset of her settings 2 weeks ago. She has E string in place and also uses topical Estrace cream. She is not sexually active. She reports ongoing night sweats that she has had since she stopped hormone therapy at age 56 that are not bothersome. She was started on hormone replacement in her late 40s. Mammogram is up-to-date and negative. Bone mineral density did demonstrate osteopenia. She is followed by local endocrinologistand is on vitamin D 1000 international units daily. She had a breast exam along with her mammogram both which were benign. She exercises on a regular basis walking at least 3 miles per day. She had a recent hysteroscopy Philip as she was bleeding with no concerning features on endometrial pathology. Review of Systems ENT: Positive for difficulty hearing. Gastrointestinal: Positive for constipation. Musculoskeletal: Positive for arthralgias and pain or stiffness in the joints. The following systems were negative: Constitutional, Skin, Eyes, CV, Respiratory, , Hematologic, Neuro, Psych Objective: OBGyn Exam External genitalia is normal female the vulva is well rugated but for the vestibule and the urethra which are pale but nontender. She also has an area at the introitus that is thinned. Speculum exam was easily done with no concerning vaginal lesions. Vaginal vault is slightly shortened but pelvic floor overall is mildly hypertonic. 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 We reviewed the role of localhormonal therapy in reversing these changes, improving vaginal health and also decreasing the risk of recurrent urinary infections. We reviewed the differences between systemic vs. vaginal estrogen therapy, and the fact that there is minimal systemic absorption from low dose vaginal estrogen. I provided information about the use of vaginal lubricants as needed for sexual activity, vaginal moisturizers on a regular basis several times per week for maintenance of vaginal moisture, and the use of vibratory stimulation as a therapy. After a review of options, we have decided to proceed with the followin. Osteopenia She is followed at the [facility] and repeat bone mineral density is recommended. - S-TSH (Thyroid-Stimulating Hormone - Sensitive); Future 2. Vaginitis Atrophic She was instructed on application of the Estrace cream to the vestibule and urethra as well as to the vulva. She will continue following up with uro gynecology for her prescriptions for E string and topical estrogen along with settings for E-stim treatments. Total visit time greater than 60 minutes, with over 50% spent counseling with the patient and coordination of care activities described above. documented in this encounter Plan of Treatment Upcoming Encounters Date Type Specialty Care Team Description 09/08/2022 Procedure visit Aesthetic Medicine and Juanita Vaz, Surgery ASSISTANT QUALITY MANAGER, C.N.P. [address] [place] [phone] ([place] bentley) 09/08/2022 Comprehensive Visit Aesthetic Lucero Arita, Surgery M.D., Ph.D. [address] [place] [phone] ([place] bentley) documented as of this encounter Results S-TSH (Thyroid-Stimulating Hormone - Sensitive) (06/13/2019 4:17 PM CDT) P athologist Signature TSH, Sensitive 1.1 0.3 - 4.2 06/13/2019 mIU/L 5:23 PM CDT Specimen Anatomical Collection Method Collection Time Receive d Time (Source) Location / / Volume Laterality Blood (Blood, 06/13/2019 4:17 PM 06/13/20 4:36 Venous) CDT PM CDT Yesica Villarreal D.O., M.P.H. LAB BLOOD ADD-ON Performing Organization Address City/State/ZIP Code Phon e Number [facility] - [address] [place] [address] [facility] documented in this encounter Visit Diagnoses Diagnosis Osteopenia - Primary Vaginitis Atrophic documented in this encounter Care Teams Banquet Server On Call Relationship Specialty Start Date End Date Elsewhere, Pcp PCP - General Internal Medicine 07/03/17 documented as of this encounter
--- OUTSIDE RECORDS SUMMARY | 2022-07-30 19:56 | XMS_ITS | Encounter Summary ---
:1945 Author Organization [facility] Address [address] [place] [address] Care Team Providers Name Role Phone Elsewhere, Pcp Primary Care Provider Unavailable Reason for Visit Appointment Request (Routine) - Closed Specialty Diagnoses / Procedures Referred By Contact Refer red To Contact Otorhinolaryngology Referral ID Status Reason Start Date Expiration Date Visits Requ ested Visits Authorized [id number] Closed 03/31/2019 03/30/2020 1 Encounter Details Date Type Department Care Team Description 04/27/2019 Diagnostic Department of [place], Loss Hearing Otorhinolaryngology in [place] S[place], [place] Aleksandr Harris-A Bilateral (Primary [address] [facility] [address] [place] [address] [facility] [phone] [place] [address] Social History Tobacco Use Types [...] More than 4 times per year 01/28/2021 rastafarian services? Do you belong to any clubs [...] have completed or the highest Armando, MEd, INSURANCE LOSS ASSESSOR, ALL) degree you have received? Sex Assigned at Date Recorded Female 07/26/2020 9:06 PM CDT documented as of this encounter Progress Notes Екатерина Echeverria Au.D. - 04/27/2019 3:30 PM CDT SUBJECTIVE REFERRAL: Self. CHIEF COMPLAINT/REASON FOR VISIT Hearing aid fitting HISTORY Yamileth Sheikh is a 73 y.o. female with an asymmetrical sensorineural hearing loss, left ear poorer than right. She reports bilateral tinnitus. She has had an MRI which does not demonstrate retrocochlear pathology, and has been referred for hearing aid consultation by Dr. Timmy Wynn. ?? She reports bilateral tinnitus, and difficulty hearing male speakers. She reports most frustration with her tinnitus, and reports interest in options to help manage her tinnitus. OBJECTIVE Otoscopic evaluation was performed and indicated clear ear canals bilaterally. Ms. Sheikh was fit with amplification. Hearing Aid Information Left Right Urgent Care Technician ReSound ReSound Model Linx 3D 577 Linx 3D 577 Style BTE (lfmycc-ros-hcm) BTE ([id number]-[id number]-wny) Serial Number [id number] Battery Size 13 13 Coupling Custom earmold, RETAIL ACCOUNT SPECIALIST#5 Custom earmold, RETAIL ACCOUNT SPECIALIST#5 Warranty Date 05/12/2022 05/12/2022 Trial Period End Date 06/12/2019 Aided real-ear probe microphone measures showed excellent audibility when compared to NAL-NL2 targets for conversational level speech inputs (65 dB SPL). An active tinnitus management setting was created. ASSESSMENT/PLAN Realistic expectations and the process of acclimatization were discussed. Care, use and adjustment of hearing aids were explained and demonstrated. Those present reported an adequate understanding and ability to manipulate the hearing aids. 1. Begin daily use of amplification. 2. Return for hearing aid check in 2-3 weeks. 3. Contact the clinic with questions or concerns. #1 Loss Hearing Sensorineural Bilateral documented in this encounter Plan of Treatment Upcoming Encounters Date Type Specialty Care Team Description 09/08/2022 Procedure visit Aesthetic Medicine and Juanita Vaz, Surgery VINYL CUTTER, C.N.P. [address] [place] [phone] (Wo rk) 09/08/2022 Comprehensive Visit Aesthetic Medicine Lucero Mckeon, Surgery M.DAnali, Ph.D. [address] [place] [phone] (Wo rk) documented as of this encounter Visit Diagnoses Diagnosis Loss Hearing Sensorineural Bilateral - P rimary documented in this encounter Care Teams Ice Cream Scooper Relationship Specialty Start Date End Date Elsewhere, Pcp PCP - General Internal Medicine 07/03/17 documented as of this encounter
--- OUTSIDE RECORDS SUMMARY | 2022-07-30 19:56 | XMS_ITS | Encounter Summary ---
:1945 Author Organization [facility] Address [address] [place] [address] Care Team Providers Name Role Phone Elsewhere, Pcp Primary Care Provider Unavailable Encounter Details Date Type Department Care Team Description 09/11/2019 Ancillary Procedure Department of Vascular Social History [...] have completed or the highest Armando, MEd, ELOCUTION TEACHER, ALL) degree you have received? Sex Assigned at Date Recorded Female 07/26/2020 9:06 PM CDT documented as of this encounter Plan of Treatment Upcoming Encounters Date Type Specialty Care Team Description 09/08/2022 Procedure visit Aesthetic Medicine and Juanita Vaz, Surgery FACT CHECKER, C.N.P. [address] [place] [phone] ([place] rk) 09/08/2022 Comprehensive Visit Aesthetic Medicine Lucero Mckeon, Surgery M.DAnali, Ph.D. [address] [place] [phone] ([place] rk) documented as of this encounter Procedures Procedure Name Priority Date/Time Associated Diagnosis Comme nts VASCULAR IMAGE EXAM Routine 09/11/2019 1:09 PM Re sults for this HEAD OF DESIGN procedure are i n the results section. documented in this encounter Results Legs-Vascular Image Exam (09/11/2019 1:09 PM HEAD OF DESIGN) Specimen (Source) Anatomical Collection Method Collection Time Re ceived Time Location / / Volume Laterality 09/11/2019 1:06 PM HEAD OF DESIGN Narrative [facility] - 09/11/2019 1:09 PM HEAD OF DESIGN This order has been created and auto-finalized [...] on filedocumented in this encounter Care Teams Compensation And Benefits Manager Relationship Specialty Start Date End Date Elsewhere, Pcp PCP - General Internal Medicine 07/03/17 documented as of this encounter
--- OUTSIDE RECORDS SUMMARY | 2022-07-30 19:56 | XMS_ITS | Encounter Summary ---
:1945 Author Organization [facility] Address [address] [place] [address] Care Team Providers Name Role Phone Elsewhere, Pcp Primary Care Provider Unavailable Encounter Details Date Type Department Care Team Description 06/13/2019 Hospital Encounter Department of Laboratory Morgan Villarreal, Osteopenia Medicine and Pathology, D.O., M. P.H[address] [place] [phone] [place] [address] [phone] Social History Tobacco Use Types Packs/Day Years [...] of school Master's degree (e.g., M [employer], , 03/30/2019 you have completed or the highest Armando, MEd, OTR TRUCK DRIVER, ALL) degree you have received? Sex Assigned [...] visit Aesthetic Medicine and Juanita Vaz, Surgery MIXER SLAGMAN, C.N.P. [address] [place] [phone] ([place] rk) 09/08/2022 Comprehensive Visit Aesthetic Medicine Lucero Mckeon, Surgery MJayda, Ph.D. [address] [place] [phone] ([place] bentley) documented as of this encounter Procedures Procedure Name Priority Date/Time Associated Diagnosis Comme nts THYROID-STIMULATING Routine 06/13/2019 4:17 PM Osteopenia Re sults for this HORMONE-SENSITIVE CDT procedure are in (S-TSH) the results section. documented in this encounter Results S-TSH (Thyroid-Stimulating Hormone - Sensitive) (06/13/2019 4:17 PM CDT) athologist Signature TSH, Sensitive 1.1 0.3 - 4.2 06/13/2019 mIU/L 5:23 PM CDT Specimen Anatomical Collection Method Collection Time Receive d Time (Source) Location / / Volume Laterality Blood (Blood, 06/13/2019 4:17 PM 06/13/20 19 4:36 Venous) CDT PM CDT Yesica Villarreal D.O., M.P.H. LAB BLOOD ADD-ON Performing Organization Address City/State/ZIP Code Phon e Number [facility] - [address] documented in this encounter Visit Diagnoses Diagnosis Osteopenia documented in this encounter Care Teams Hand Splitter Relationship Specialty Start Date End Date Elsewhere, Pcp PCP - General Internal Medicine 07/03/17 documented as of this encounter
--- OUTSIDE RECORDS SUMMARY | 2022-07-30 19:56 | XMS_ITS | Encounter Summary ---
:1945 Author Organization [facility] Address [address] [place] [id number] Care Team Providers Name Role Phone Elsewhere, Pcp Primary Care Provider Unavailable Reason for Visit Appointment Request (Routine) - Closed Specialty Diagnoses / Procedures Referred By Contact Refer red To Contact Preventive Medicine Referral ID Status Reason Start Date Expiration Date Visits Requ ested Visits Authorized [id number] Closed 03/21/2019 03/20/2020 1 1 Encounter Details Date Type Department Care Team Description 06/08/2019 Comprehensive Visit Section of Christine Gray Preventive (Primary Dx); Preventive, M, BAND TIER, Satisfactory [facility] Exam Transportation and C.N.P., D.N.P . Occupational Medicine [address] [facility] in [facility] [address] 200 [facility] [phone] [place], [place] (Work) [phone] Social History Tobacco Use Types Packs/Day Years [...] have completed or the highest Armando, MEd, MAKEUP ARTIST, ALL) degree you have received? Sex Assigned at Date Recorded Female 07/26/2020 9:06 PM CDT documented as of this encounter Last Filed Vital Signs Vital Sign Reading Time Taken Comments Blood Pressure 119/69 06/08/2019 11:04 AM CDT Pulse 66 06/08/2019 11:04 AM CDT Temperature - - Respiratory Rate - - Oxygen Saturation - - Inhaled Oxygen Concentration - - Weight 61.8 kg (136 lb 3.9 oz) 06/08/2019 11:04 AM CDT Height 167 cm (5' 5.75) 06/08/2019 11:04 AM CDT Body Mass Index 22.16 06/08/2019 11:04 AM CDT documented in this encounter Consult Notes Christine Gray APRN, C.N.P., D.N.P. - 06/08/2019 11:00 AM CDT SUBJECTIVE CHIEF COMPLAINT Comprehensive Preventive Services Evaluation. RITO Sheikh is a 73 y.o. female who presents to the [facility] today for a comprehensive preventive health evaluation. Patient does have a primary care provider at home in [place], [place]. Past history significant for osteopenia, hypertension, hyperlipidemia, and uterine fibroidswith thickening of the endometrium and previous hysteroscopy procedures. Current preventive services history is as follows: Immunization history per EMR includes: Immunization History Administered Date(s) Administered ??? DT, Pediatric 02/08/1986 ??? DTaP, Unspecified 06/30/2017 ??? HZV (ZOSTAVAX) 09/23/2009 ??? HepA Adult 02/12/2003, 10/02/2003 ??? HepB Adult 02/12/2003, 03/28/2003, 10/02/2003 ??? Lyme Disease 12/19/1998, 02/24/1999, 05/04/2001 ??? PCV13 01/07/2015 ??? PPSV23 11/27/2013 ??? RZV (SHINGRIX) 03/29/2018, 06/03/2018 ??? Rabies, Unspecified 04/03/2003, 04/10/2003, 05/01/2003 ??? Td (Adult), adsorbed 09/22/1999 ??? Tdap 04/28/2007, 09/24/2010, 06/30/2017 ??? TyVi (inj) 10/02/2003, 04/28/2007 ??? YF 05/01/2003 ??? influenza high dose (65 years or older) (PF) 06/04/2018 All immunizations up to date at this time. Hyperlipidemia screening: Patient does have a history of hyperlipidemia. She is currently on treatment with atorvastatin. Lipids were last checked in April 2019 and excellent with a total cholesterol 132, HDL 78, LDL 43, and triglycerides 54. She is following closely with the Cardiovascular Clinic near her home in [place]. Known early family history of CAD or sudden cardiac . Father from heart attack at age 78 and was being treated for CAD. Maternal grandfather from heart attack and paternal grandmother had heart disease. Maternal grandmother and mother had hypertension. Diabetes screening: Last fasting glucose for diabetes screening was completed in April 2019 and normal at 96. No known history of diabetes or elevated glucose. She follows closely with primary care provider for recommended hyperglycemic screening. Hypertension screening: History of hypertension on treatment with valsartan. Last blood pressure check today was normal 119/69. Colorectal cancer screening: Has had screening via colonoscopy on 05/29/2015 and results were normal. Based on family history, she has been told she should get a colonoscopy every 5 years from her primary care provider. She wishes to remain on an every 5 years schedule. Do next in 2019. Denies any change in her stool, constipation, diarrhea, blood in the stool, or pencil-thin stools. Does get constipated if she does not take her magnesium supplement. She also reports a known small hemorrhoid that will bleed intermittently. Known family history of colorectal cancer or precancerous polyps. Mother of colon cancer. She was diagnosed at age 91 and in 2007 at age 89. Cervical cancer screening: history: G 1, P 1. First parity at the age of 33. She did breastfeed. Patient underwent menopause in her 50s. Denies any irregular bleeding, spotting, heavy menses, or irregularities. She did have some irregular bleeding several years ago and has been evaluated in [facility] here at [facility] for that concern. At that time patient was unsure if the bleeding had come from the anal area or vaginal tissue. Last Pap smear screening completed in 2018. Results were satisfactory for evaluation and negative for intraepithelial lesions or malignancies with negative high risk HPV testing. Patient has history ofabnormal pap smears more than 10-15 years ago but all follow up testing was all normal. Based on aging current guidelines, no further Pap smear screening is recommended at this time. There is no history of hysterectomy. There is a previous history of hormone replacement therapy. When she became menopausal in her 41 shewas put on both progesterone and estrogen pills for her heavy bleeding. In her 50s, she was put on an estrogen patch in the pill. She is currently using Estrace vaginal cream and Estring for vaginal atrophy. Known family history of cervical, ovarian, or uterine cancer. Older sister was diagnosed with uterine cancer at age 69-70 and niece was diagnosed with ovarian cancer in her 40's. Personal history of STD's is negative. Is not currently sexually active. No known FELICIA exposure. Denies vaginal discharge, itching, sores, lumps, or pain. Breast cancer screening: Last mammogram completed on 04/2018 and negative for malignancy. Reports previous breast biopsy history. In 1989, she had a biopsies in the upper outer quadrants of both breasts, and two years ago she had a guided needle biopsy on the left breast. All results were negative. She did have breast reduction surgery in [phone]. Denies any breast symptoms or changes. She does perform regular breast self-examinations and has not noticed any lumps, nipple discharge, retraction, or skin changes. She notes that she has fibrocystic dense breasts. Last mammogram completed at [facility] in 2015 showed a B breast density. No known family history of breast cancer. Osteoporosis screening: Patient has a history of osteopenia with her last BMD screening completed at [facility] on 04/13/2018,please refer to outside records. She was evaluated last year with Endocrinology and recommended she follow-up in 1 year for repeat DEXA scan and evaluation of treatment. Patient will be scheduling her follow-up appointment in August,. Patient is very active with weight-bearing activity and walks 3 miles every morning and 1-2 miles most nights. She has a diet high in calcium with at least 3+ servings of dietary calcium along with an oral calcium supplement and 2000 mg of vitamin D a day. No known history of atraumatic or pathologic fracture. Known family history of osteoporosis or fractures. Patient's mother had osteoporosis. There is no history of steroid use or increased risk of osteoporosis. Infectious Disease: HIV screening history: Negative Hep C screening history: Negative Known TB exposure history. 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 Shehas been tested and all have been negative. Weight/BMI: Current BMI Body mass index is 22.16 kg/m??. Fall risk/concerns: No history of falls or recent falls in the last year. Skin screening exams: Attends regular skin screening/dermatology exams. There is no history of skin cancer or melanoma. Noknown family history of skin cancer. Eye exams: Attends regular eye exams. Last eye exam completed this year. She underwent cataract surgery in July, and is scheduled for follow-up evaluation in August with Dr. Galicia at [facility]. She does wear eye correction. REVIEW OF SYSTEMS: Per HPI as related to presenting complaint. PAST MEDICAL/SURGICAL HISTORY As per HPI or noncontributory to presenting complaint. SOCIAL HISTORY Tobacco: Social History Tobacco Use Smoking Status Never Smoker Smokeless Tobacco Never Used Alcohol: Social History Substance and Sexual Activity Alcohol Use Yes ??? Types: 3 Glasses of wine per week ??? Frequency: 2-3 times a week ??? Drinks per session: 1 or 2 ??? Binge frequency: Never FAMILY HISTORY As per HPI or noncontributory to presenting complaint. OBJECTIVE BP 119/69 (BP Location: Right arm, Patient Position: Sitting, Cuff Size: Regular) Pulse 66 Ht 167 cm Wt 61.8 kg BMI 22.16 kg/m?? PHYSICAL EXAM: General Appearance: Alert, oriented, healthy-appearing female in no acute distress. Breast: Pendulous, left breast minimally larger than right. No masses, dimpling, or nipple dischargenoted in the breasts bilaterally. No axillary lymphadenopathy. Palpation of the breasts reveals softfibroglandular texture throughout with increased tissue in the outer, lower quadrants bilaterally. Ma mmoplasty breast reduction scars present bilaterally. ASSESSMENT / PLAN #1 Comprehensive Preventive Services Counseling #2 Satisfactory breast exam Based on the current data, the following action plan was formulated with patient: 1. Immunizations: All immunizations up-to-date at this time. 2. Screening exam(s): Clinical breast exam completed with no abnormal findings. Patient is otherwisecurrently up-to-date on preventive health screenings. We will notify her of the results with management as indicated. Patient was seen today in the Preventive Services Clinic. ORDERS: Screening: Mammogram screening Consultations: None Discussed but deferred: None EDUCATION: Reviewed screening recommendations for patient's age group and gender. We recommend following the SIX CONCEPTS FOR MAINTENANCE OF GOOD HEALTH: --Move daily for at least 30 minutes. Incorporate strength training exercise three times per week. --Eat well including three to five servings of fruits and vegetables each. Consume healthy unsaturated plant and fish oils and whole grains. Avoid processed sugars, starches, grains. Limit red meat. --Sleep enough, striving for eight hours per night. --Take time for prevention; planning is important. --Relax daily to rid yourself of stress and tension. --Discover meaning and purpose in life; choose activities that bring you wagner and reduce stress. FOLLOW UP AND PATIENT RECOMMENDATIONS: --Annual clinical breast exams. --Annual mammograms. --Pap smear/cervical cancer screening no longer clinically indicated. Pelvic examinations are recommended as pelvic symptoms warrant. --Blood pressure checks at least every year. --Lipid checks at least every year. --Diabetes screening with fasting glucose at least every 3 years. --Current BMI is 22.16. Continue with your excellent exercise program and weight loss goals. --Colorectal cancer screening will be due in 2019 if you continue on a 5 year screening increment asrecommended by your primary care provider. Screening and exam should be considered prior for any change in bowel habits or symptoms. --Continue to follow-up with your primary care provider on recommended bone mineral density measurements (osteoporosis screening). --Annual influenza vaccinations are encouraged. --Tetanus boosters every ten years and will be due in 2026. --Share any results and recommendations with your primary treating provider, as this was a preventive health screening only. Questions were answered to the best of my ability. Other health conditions were not discussed during the current evaluation and should be followed up with their primary health care provider as needed. PATIENT EDUCATION Ready to learn, no apparent learning barriers were identified; learning preferences include listening. Explained diagnosis and treatment plan; patient/child/caregiver expressed understanding of the content. Total Time: 45 minutes. More than half of the time today was focused in counseling and coordination of care. documented in this encounter Plan of Treatment Upcoming Encounters Date Type Specialty Care Team Description 09/08/2022 Procedure visit Aesthetic Medicine and Juanita Vaz, Surgery CLAUDIA, C.N.P. [address] [place] [phone] (Wo rk) 09/08/2022 Comprehensive Visit Aesthetic Medicine and Lucero Pritchard, Surgery M.DAnali, Ph.D. [address] [place] [phone] (Wo rk) documented as of this encounter Visit Diagnoses Diagnosis Counseling Preventive - Primary Satisfactory Breast Exam documented in this encounter Care Teams Animal Technician Relationship Specialty Start Date End Date Elsewhere, Pcp PCP - General Internal Medicine 07/03/17 documented as of this encounter
--- OUTSIDE RECORDS SUMMARY | 2022-07-30 19:56 | XMS_ITS | Encounter Summary ---
:1945 Author Organization [facility] Address [address] [place] [address] Care Team Providers Name Role Phone Elsewhere, Pcp Primary Care Provider Unavailable Encounter Details Date Type Department Care Team Description 07/31/2019 Diagnostic Department of [place], Tinnitus Bilat eral (Primary Dx); Otorhinolaryngology in [place], Loss Hearing Sensorineural Bilateral [place], [place] Steven, C.C.C.-A [address] [facility] [address] [place] [phone] [facility] [phone] [place] [address] Social History Tobacco Use Types [...] have completed or the highest Armando, MEd, MOUNTAIN GUIDE, ALL) degree you have received? Sex Assigned at Date Recorded Female 07/26/2020 9:06 PM CDT documented as of this encounter Progress Notes Екатерина Echeverria Au.D., C.CAanliCAnali-Gage - 07/31/2019 11:00 AM CDT SUBJECTIVE REFERRAL: Self. CHIEF COMPLAINT/REASON FOR VISIT Earmold fitting HISTORY Yamileth Sheikh is a 73 year-old female with an asymmetrical sensorineural hearing loss, [...] amplification on??04/27/2019. Hearing Aid Information Left Right Rhythmic Gymnastics Coach Admittor Model Linx 3D 577 Linx 3D 577 Style BTE ([id number]) BTE ([id number]-lms-dty) Serial Number [id number] Battery Size 13 13 ? Coupling Custom earmold, CLINICAL DOCUMENTATION MANAGER#5 Custom earmold, CLINICAL DOCUMENTATION MANAGER#5 ? Warranty Date 05/12/2022 05/12/2022 Trial Period End Date 06/12/2019 ?? She returns today for remake right earmold fitting. OBJECTIVE Otoscopic evaluation was performed and indicated ear canals clear of cerumen. Feedback calibration was completed. Aided real-ear probe microphone measures showed excellent audibility when compared to NAL-NL2 targets for conversational speech level inputs (65 dB SPL). ASSESSMENT/PLAN Physical fit of the earmold appeared good and patient denied discomfort. Patient was advised to contact the office with fit concerns as soon as possible due to option for remake with the social media manager. Today she reports she plans to continue working with her hearing aids-- her trial period ends 08/10. She requested an additional follow-up appointment in a few weeks to check on her progress. #1 Tinnitus Bilateral #2 Loss Hearing Sensorineural Bilateral documented in this encounter Plan of Treatment Upcoming Encounters Date Type Specialty Care Team Description 09/08/2022 Procedure visit Aesthetic Medicine and Juanita Vaz, Surgery PLANT DIRECTOR, C.N.P. [address] [place] [phone] (Wo rk) 09/08/2022 Comprehensive Visit Aesthetic Medicine Lucero Mckeon, Surgery M.Norma, Ph.D. [address] [place] [phone] (Wo rk) documented as of this encounter Visit Diagnoses Diagnosis Tinnitus Bilateral - Primary Loss Hearing Sensorineural Bilateral documented in this encounter Care Teams Car Varnisher Relationship Specialty Start Date End Date Elsewhere, Pcp PCP - General Internal Medicine 07/03/17 documented as of this encounter
--- OUTSIDE RECORDS SUMMARY | 2022-07-30 19:56 | XMS_ITS | Encounter Summary ---
:1945 Author Organization [facility] Address [address] [place] [address] Care Team Providers Name Role Phone Elsewhere, Pcp Primary Care Provider Unavailable Encounter Details Date Type Department Care Team Description 06/29/2019 Diagnostic Department of [place], Tinnitus Bilat eral (Primary Dx); Otorhinolaryngology in [place], Loss Hearing Sensorineural Asymmetrical [place], [place] Steven, C.C.C.-A [address] [address] [place] [phone] [facility] [phone] [place] [address] Social History Tobacco Use Types [...] have completed or the highest Armando, MEd, DOWEL MACHINE OPERATOR, LAL) degree you have received? Sex Assigned at Date Recorded Female 07/26/2020 9:06 PM CDT documented as of this encounter Progress Notes Екатерина Echeverria Au.D. - 06/29/2019 11:00 AM CDT SUBJECTIVE REFERRAL: Self. CHIEF [...] amplification on??04/27/2019. 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 Coupling Custom earmold, HOUSING SPECIALIST#5 Custom earmold, HOUSING SPECIALIST#5 ? Warranty Date 05/12/2022 05/12/2022 Trial Period End Date 06/12/2019 ?? She returns today for remake left earmold fitting. OBJECTIVE Otoscopy indicates clear ear canals bilaterally. ASSESSMENT/PLAN Physical fit of the remake left earmold appeared good and patient denied discomfort. Ms. Sheikh reports the right earmold is uncomfortable at the posterior inferior of the ear canal. ?? ASSESSMENT ?? Today we elected to remake the right earmold. An earmold impression was obtained for the right ear without incident. A remake earmold will be ordered from the code official. ?? Recommended return visit in three weeks. ?? #1 tinnitus bilateral #2 Hearing loss sensorineural asymmetrical documented in this encounter Plan of Treatment Upcoming Encounters Date Type Specialty Care Team Description 09/08/2022 Procedure visit Aesthetic Medicine and Juanita Vaz, Surgery TILE APPLICATOR, C.N.P. [address] [place] [phone] (Charlotte bentley) 09/08/2022 Comprehensive Visit Aesthetic Medicine Lucero Mckeon, Surgery Francesca, Ph.D. [address] [place] [phone] (Charlotte rk) documented as of this encounter Visit Diagnoses Diagnosis Tinnitus Bilateral - Primary Loss Hearing Sensorineural Asymmetrical documented in this encounter Care Teams Manager Transportation Planning Relationship Specialty Start Date End Date Elsewhere, Pcp PCP - General Internal Medicine 07/03/17 documented as of this encounter
--- OUTSIDE RECORDS SUMMARY | 2022-07-30 19:56 | XMS_ITS | Encounter Summary ---
:1945 Author Organization [facility] Address [address] [place] [address] Care Team Providers Name Role Phone Elsewhere, Pcp Primary Care Provider Unavailable Reason for Visit Reason Comments Insect Bite Pt has a bug bite on left si de of neck. Encounter Details Date Type Department Care Team Description 03/11/2019 Emergency [place] [facility] Zonia Escobedo Ins ect Bite Other Department A, R.N. Specified Part Neck [address] [facility] Initial (Primary Dx) [place] [id number] Social History Tobacco Use Types Packs/Day Years [...] slept in a nursing home (including now)? Sex Assigned at Date Recorded Female 07/26/2020 9:06 PM CDT documented as of this encounter Last Filed Vital Signs Vital Sign Reading Time Taken Comments Blood Pressure 136/80 03/11/2019 1:16 PM CDT Pulse 66 03/11/2019 1:16 PM CDT Temperature 36.5 ??C (97.7 ??F) 03/11/2019 1:16 PM CDT Respiratory Rate 12 03/11/2019 1:16 PM CDT Oxygen Saturation 98% 03/11/2019 1:16 PM CDT Inhaled Oxygen Concentration - - Weight 66 kg (145 lb 8.1 oz) 03/11/2019 1:17 PM CDT Height - - Body Mass Index 23.48 02/16/2019 11:14 AM CDT documented in this encounter Discharge Instructions Discharge InstructionsZonia Escobedo C.NJuana, A.P.N.P. - 03/11/2019 1:35 PM CDT Continue to use over the counter antihistamine cream to insect bites as needed May also use over the counter Claritin (Loratadine) and Zyrtec (Cetirizine) as needed for allergies AttachmentsThe following attachments cannot be sent through Care Everywhere. Insect Bite Adult Pnox-yi-Mzmx ([place])documented in this encounter Medications at Time of [...] capsule mouth. documented as of this encounter Progress Notes Zonia Escobedo C.N.P., A.P.N.P. - 03/11/2019 1:36 PM CDT SUBJECTIVE CHIEF COMPLAINT/REASON FOR VISIT Insect Bite (Pt has a bug bite on left side of neck. ) HISTORY OF PRESENT ILLNESS Yamileth Sheikh is a 73 y.o. female who presents with a chief complaint of an insect bite to the left side of her neck. Patient reports she noticed the bite initially last night after being outside and presumed to be a mosquito bite. She has had some mild itching insect bite, but denies any pain, drainage or swelling. Patient also denies any fevers, chills or myalgias associated with insect bite. Patient reports she was not wearing bug spray last night, also completed head-to-toe skin check but did not find any ticks. She has been using pdvp-wub-ryihcvq antihistamine cream for symptom management, reports complete relief in symptoms. Patient offers no other acute concerns at this time. REVIEW OF SYSTEMS Constitutional: Negative. HENT: Negative. Eyes: Negative. Respiratory: Negative. Cardiovascular: Negative. Gastrointestinal: Negative. Endocrine: Negative. Genitourinary: Negative. Musculoskeletal: Negative. Skin: Insect bite to left side of neck. Allergic/Immunologic: Negative. Neurological: Negative. Hematological: Negative. Psychiatric/Behavioral: Negative. OBJECTIVE Initial Vitals [03/11/19 1316] Temperature Pulse Rate Heart Rate Resp Rate Blood Pressure SpO2 36.5 ??C 66 -- 12 136/80 98 % Pain Score -- PHYSICAL EXAMINATION Constitutional: She appears well-developed and well-nourished. No distress. HENT: Head: Normocephalic and atraumatic. Mouth/Throat: Mucous membranes are moist. Eyes: Conjunctivae are normal. Pupils are equal, round, and reactive to light. Neck: Normal range of motion. Neck supple. Cardiovascular: Normal rate, regular rhythm, S1 normal, S2 normal and normal heart sounds. Pulmonary/Chest: Effort normal and breath sounds normal. There is normal air entry. No tachypnea. Norespiratory distress. Musculoskeletal: Normal range of motion. Neurological: She is oriented to person, place, and time. Skin: Skin is intact. Rash is not vesicular, not urticarial, not scaling, not crusting, not blanching, not raised and not tender. 0.5 circular papule that is red in appearance without fluid. Surrounding skin is intact with no overlying erythema, warmth, or excoriation. Psychiatric: She has a normal mood and affect. Her behavior is normal. Judgment and thought content normal. Vitals reviewed. ASSESSMENT/PLAN Impression and Plan Yamileth is a very pleasant 73-year-old female who presents with an insect bite which she noticed last night after being outside. Patient was not wearing bug spray, and completed head to toe body check finding no ticks. On today's exam, patient does not appear ill or toxic, is afebrile, not tachycardic, denies any constitutional symptoms associated with insect bite. There is a 0.5 circular red papule that is not pruritic, without any excoriation, drainage, or pruritus noted on exam. Reassurance was provided, and patient was encouraged to continue to use her knfn-jkx-mmboiix antihistamine cream as needed for symptoms. She was also advised that she may add an ggcg-wdf-odsopwm antihistamine such as Claritin or Cetirizine for symptom management, was advised to use bug spray when outdoors, and to continueto complete head-to-toe body checks for ticks. Patient is in agreement with the above plan of care, and has no further questions at this time. Please see discharge instructions. . Final Diagnoses: as of Mar 11 1336 Insect Bite Other Specified Part Neck Initial Zonia Escobedo C.NTabby., A.P.N.P. 03/11/19 1344 documented in this encounter Plan of Treatment Upcoming Encounters Date Type Specialty Care Team Description 09/08/2022 Procedure visit Aesthetic Medicine and Juanita Vaz, Surgery WAREHOUSE LABORER, C.N.P. [address] [place] [phone] (Charlotte bentley) 09/08/2022 Comprehensive Visit Aesthetic Medicine Lucero Mckeon, Surgery M.DAnali, Ph.D. [address] [place] [address] (Charlotte bentley) documented as of this encounter Visit Diagnoses Diagnosis Insect Bite Other Specified Part Neck In itial - Primary documented in this encounter Care Teams Sales Engagement Manager Relationship Specialty Start Date End Date Elsewhere, Pcp PCP - General Internal Medicine 07/03/17 documented as of this encounter
--- OUTSIDE RECORDS SUMMARY | 2022-07-30 19:56 | XMS_ITS | Encounter Summary ---
:1945 Author Organization [facility] Address [address] [place] [address] Care Team Providers Name Role Phone Elsewhere, Pcp Primary Care Provider Unavailable Encounter Details Date Type Department Care Team Description 06/08/2019 Hospital Encounter Department of Christine Gray Screen ing Mammogram Radiology in M, CLAUDIA, C.N.P., Average Ris k Patient Norma CobianN.Nancy [place] [address] [facility] [address] [place] [phone] Social History Tobacco Use Types Packs/Day Years [...] More than 4 times per year 01/28/2021 pentecostal services? Do you belong to any clubs [...] have completed or the highest Armando, MEd, PROPERTY MANAGEMENT BOOKKEEPER, ALL) degree you have received? Sex Assigned [...] visit Aesthetic Medicine and Juanita Vaz, Surgery PRIVATE BRANCH EXCHANGE REPAIRER, C.N.P. [address] [place] [address] (Wo rk) 09/08/2022 Comprehensive Visit Aesthetic Medicine Lucero Mckeon, Surgery MJayda, Ph.D. [address] [place] [phone] (Wo rk) documented as of this encounter Procedures Procedure Name Priority Date/Time Associated Comments Diagnosis BI BREAST SCREENING RAD - Routine 06/08/2019 1:03 Screening Resu lts for BILATERAL WITH (most inpatients PM CDT Mammogram Average this procedure TOMOSYNTHESIS and all Risk Patient are in the outpatients) results section. documented in this encounter Results BI Breast Screening Bilateral with Tomosynthesis (06/08/2019 1:03 PM CDT) Anatomical Region Laterality Modality Breast, Breast Imaging RST LOS, Breast Imaging ARZ LOS, [place] st Bilateral Mammography Imaging FLA LOS Specimen [...] Diagnoses Diagnosis Screening Mammogram Average Risk Patient documented in this encounter Care Teams Cooler Service Supervisor Relationship Specialty Start Date End Date Elsewhere, Pcp PCP - General Internal Medicine 07/03/17 documented as of this encounter
--- OUTSIDE RECORDS SUMMARY | 2022-07-30 19:56 | XMS_ITS | Encounter Summary ---
:1945 Author Organization [facility] Address [address] [place] [address] Care Team Providers Name Role Phone Elsewhere, Pcp Primary Care Provider Unavailable Encounter Details Date Type Department Care Team Description 09/11/2019 Procedure visit Department of Juanita Vaz Varicose Vein Lower Vascular Medicine in R, HAND DEVELOPER, C. N.P. Extremity With Pain [place], [place] [address] [facility] Bilateral [address] [place] [phone] Social History Tobacco Use Types Packs/Day Years [...] have completed or the highest Armando, MEd, UNIVERSITY COUNSELOR, ALL) degree you have received? Sex Assigned at Date Recorded Female 07/26/2020 9:06 PM CDT documented as of this encounter Procedure Notes Juanita Vaz, CLAUDIA, C.N.P. - 09/11/2019 1:00 PM CSTAssociated Order(s): SCLEROTHERAPY Procedure(s): SCLEROTHERAPY Pre-Procedure [...] were obtained after consent using [facility] approvedand secure device and loaded to patient's medical record. Brief History: Ms. Sheikh returns for a repeated session of sclerotherapy. She is noting quite March improvement but does have some evidence of retained formation/superficial thrombophlebitis within the vessels previously injected. Attention was made in trying to alleviate this congestion with puncturing of the vessel and expressing of retained clot material. This was followed by bilateral lower extremity sclerotherapy performed by myself as well as Ms PruettBrigitte Kim. Preparation of legs: Agent used: Isopropyl ETOH was used to cleanse the legs Agent used: Polidocanol 0.1% injecting a total of 22 cc's to bilateral lower extremity varicosities Number of injections: Approximately 50-75 injections [place] used: 30 gauge Complications: No apparent complications [...] all questions were answered to apparent satisfaction. ING TRACTOR OPERATOR documented in this encounter Plan of Treatment Upcoming Encounters Date Type Specialty Care Team Description 09/08/2022 Procedure visit Aesthetic Medicine and Juanita Vaz, Surgery CLAUDIA, C.N.P. [address] [place] [phone] (Charlotte bentley) 09/08/2022 Comprehensive Visit Aesthetic Medicine Luceor Mckeon, Surgery MJayda, Ph.D. [address] [place] [phone] (Charlotte bentley) documented as of this encounter Procedures Procedure Name Priority Date/Time Associated Diagnosis Comme nts SCLEROTHERAPY Routine 09/11/2019 1:00 PM Varicose Vein Lower R esults for this LOGGING TRACTOR OPERATOR Extremity With Pain procedur e are in the Bilateral results section . documented in this encounter Results Sclerotherapy (09/11/2019 1:00 PM LOGGING TRACTOR OPERATOR) Narrative MMODAL - 09/11/2019 1:00 PM LOGGING TRACTOR OPERATOR Juanita Vaz APRN, C.N.P. ? 09/11/2019 ??6:19 PM Proceduralist: ??JOSHUA Informed consent obtained: ??Yes [...] were obtained after consent using [facility] approved and s [employer] device and loaded to patient's medical record. ?? Brief History: Ms. Sheikh returns for a repeated session of sclerotherapy. ??She is noting quite Mar ch improvement but does have some evidence of retained formation /superficial thrombophlebitis within the vessels prev iously injected. ?? Attention was made in trying to alleviat e this congestion with puncturing of the vessel and expressing of retained clot material. ??This was followed by michael hugo lower extremity sclerotherapy performed by myself as phil l as Ms Brigitte Alvarez. Preparation of legs: Agent used: ??Isopr opyl ETOH was used to cleanse the legs Agent used: ??Polidocanol 0.1% injecting a total of 22 cc's to bilateral lower extremity varicosities Number of injections: ??Approximately 50 -75 injections [place] used: 30 gauge Complications: ??No apparent complicatio [...] polidocanol 1 % (20 mg/2 mL) Given 09/11/2019 1:05 PM LOGGING TRACTOR OPERATOR 2 mL injection 2 mL (ASCLERA) 2 mL, intravenous, Once, On 09/11/19 at 1315, For 1 dose, 2mL was drawn up and diluted into 20mL of 0.9% saline. documented in this encounter Care Teams Pot Fluxer Relationship Specialty Start Date End Date Elsewhere, Pcp PCP - General Internal Medicine 07/03/17 documented as of this encounter
--- OUTSIDE RECORDS SUMMARY | 2022-07-30 19:56 | XMS_ITS | Encounter Summary ---
:1945 Author Organization [facility] Address [address] [place] [address] Care Team Providers Name Role Phone Elsewhere, Pcp Primary Care Provider Unavailable Reason for Visit Outpatient (Routine) - Closed Specialty Diagnoses / Procedures Referred By Contact Refer red To Contact Audiology Diagnoses Tinnitus Bilateral Timmy Qiu M.D. [address] [phone] Referral ID Status Reason Start Date Expiration Date Visits Requ ested Visits Authorized [id number] Closed 02/16/2019 02/16/2020 1 1 Encounter Details Date Type Department Care Team Description 03/31/2019 Diagnostic Department of [place], Loss Hearing S ensorineural Bilateral (Primary Dx); Otorhinolaryngology in Dorcas Solano tus Bilateral [place], [place] Steven, C.C.C.-A [address] [place] [address] [address] [place] [phone] [facility] [phone] [place] [phone] Social History Tobacco Use Types Packs/Day Years [...] More than 4 times per year 01/28/2021 christian services? Do you belong to any clubs [...] have completed or the highest Armando, MEd, MASTER SHEET CLERK, ALL) degree you have received? Sex Assigned at Date Recorded Female 07/26/2020 9:06 PM CDT documented as of this encounter Consult Notes Екатерина Echeverria Au.D. - 03/31/2019 1:00 PM CDT SUBJECTIVE REFERRAL: Timmy Wynn MD. CHIEF COMPLAINT/REASON FOR VISIT Hearing aid consultation HISTORY Yamileth Sheikh is a 73 y.o. female with an asymmetrical sensorineural hearing loss, left ear poorer than right. She reports bilateral tinnitus. She has had an MRI which does not demonstrate retrocochlear pathology, and has been referred for hearing aid consultation by Dr. Timmy Wynn. She reports bilateral tinnitus, and difficulty hearing male speakers. She reports most frustration with her tinnitus, and reports interest in options to help manage her tinnitus. OBJECTIVE Please see audiogram dated 02/16/2019. Hearing test results were verbally and visually reviewed with Ms. Sheikh. Otoscopic evaluation was performed and indicated clear ear canals bilaterally. ASSESSMENT/PLAN The patient???s communication needs and lifestyle were assessed. Realistic expectations of amplification were discussed. Hearing aid styles, levels of technology, user control options, and the recommended procedure for follow-up care were explained. Based on the patient???s hearing and communication needs, the following recommendation was provided: Left Right School Bus Attendant ReSound ReSound Model Linx 3D Linx 3D Style BTE ([id number]) BTE ([id number]) Patient preferred to call back with a technology level preference. Earmold impressions obtained for both ears without incident. Custom earmolds will be ordered. A fitting appointment and follow-up appointments were scheduled. #1 Loss Hearing Sensorineural Bilateral #2 Tinnitus Bilateral documented in this encounter Plan of Treatment Upcoming Encounters Date Type Specialty Care Team Description 09/08/2022 Procedure visit Aesthetic Medicine and Juanita Vaz, Surgery ACCOUNTING OFFICER, C.N.P. [address] [place] [phone] (Wo rk) 09/08/2022 Comprehensive Visit Aesthetic Medicine Lucero Mckeon, Surgery Francesca, Ph.D. [address] [place] [phone] (Wo rk) documented as of this encounter Visit Diagnoses Diagnosis Loss Hearing Sensorineural Bilateral - P rimary Tinnitus Bilateral documented in this encounter Care Teams Chief General Pediatric [facility] Relationship Specialty Start Date End Date Elsewhere, Pcp PCP - General Internal Medicine 07/03/17 documented as of this encounter
--- OUTSIDE RECORDS SUMMARY | 2022-07-30 19:57 | XMS_ITS | Encounter Summary ---
:1945 Author Organization [facility] Address [address] [place] [address] Care Team Providers Name Role Phone Elsewhere, Pcp Primary Care Provider Unavailable Encounter Details Date Type Department Care Team Description 06/22/2018 Hospital Encounter Department of Christine Gray; Laboratory Medicine M, WATER PROOFER, C.N.P., Regu rgitation Mitral and Pathology, D.N.P. [address] [phone] [place] [address] [place], [place] (Work) [phone] Social History Tobacco Use Types Packs/Day Years [...] or relatives? How often do you attend sabianism or More than 4 times per year 01/28/2021 mosque services? Do you belong to any clubs or Yes 01/28/2021 organizations such as sabianism groups, unions, fraternal or athletic groups, or [...] or slept in a intermediate (including now)? Sex Assigned at Date Recorded [...] as vaginal ring directed. Every 3 months L-LYSINE ORAL Take 1 tablet by 0 05/24/2015 mouth every morning. 1000 mg lisinopriL Take 1 tablet by 0 03/20/2010 (PRINIVIL,ZESTRIL) 20 mg mouth daily. tablet amoxicillin (AMOXIL) 500 Take 2 capsules by 0 05/17/2020 mg capsule mouth as needed. aspirin-calcium carbonate Take 81 mg by mouth 0 11/30/2018 81 mg-300 mg calcium(777 daily. mg) tablet atorvastatin (LIPITOR) 10 Take 10 mg by mouth 0 08/29/2018 mg tablet daily. azelastine (ASTELIN) 137 Administer 1-2 0 014 08/29/2018 mcg/spray (0.1 %) nasal sprays into affected spray nostril(s) 2 (two) times a day. B complex-vitamins Take 1 tablet by 0 05/24/2015 02/16/2019 (BALANCE B-50) tablet mouth 2 (two) times a day. calcium carb,gluc/mag Take 4 capsules by 0 201402/16/2019 ox,gluc (CALCIUM mouth. MAGNESIUM ORAL) calcium citrate Take 6 tablets by 0 05/24/2015 (CALCITRATE) 950 mg (200 mouth daily. 1000 mg mg calcium) tablet ashlyn/ 400 D2/ 500 Magn ciclopirox (LOPROX) 0.77 Apply topically 2 0 01/0306/13/2019 % cream (two) times a day. ciclopirox (LOPROX) 0.77 Apply topically. 0 01/2402/16/2019 % cream CINNAMON Take 2 tablets by 0 019 WNUW-DBPPEPMY-NEL ORAL mouth daily. garlic tablet Take 1 tablet by 0 05/24/201511/30 mouth 3 (three) times a day. tricia root (TRICIA Take 1 capsule by 0 5 11/30/2018 EXTRACT ORAL) mouth 3 (three) times a day. glucosamine/msm/csa/ashlyn/h Take 1 tablet by 0 05/0511/30/2018 rb115 mouth 2 (two) times ([id number]-YLSTX-WWH-ASHLYN a day. -115HC ORAL) hydrocortisone Insert 1 application 0 03/16/2014 11/30/2018 (CORTIFOAM) 10 % (80 mg) into the rectum as rectal foam needed. PRN ipratropium HFA (ATROVENT Administer 2 sprays 0 0 06/11/2016 08/29/2018 HFA) 17 mcg/actuation into affected inhaler nostril(s) daily. irbesartan (AVAPRO) 150 Take 150 mg by mouth 0 08/29/2018 mg tablet daily. MAGNESIUM CITRATE ORAL Take 4 tablets by 0 201411/30/2018 mouth. 800 mg mv-mn/folic Take 1 tablet by 0 08/03/2009 019 acid/calcium/vit K mouth daily. (ONE-A-DAY WOMEN'S 50 PLUS ORAL) omega-3 fatty acids/fish Take 2 capsules by 0 06/13/2019 oil (OMEGA 3 FISH OIL mouth daily. ORAL) turmeric, bulk, 100 % daily. 300 mg 0 11/30/2018 powder UNABLE TO FIND [place] 200mg 0 08/05 valacyclovir HCl (VALTREX Take by mouth as 0 02/16/2019 ORAL) needed. documented as of this encounter Plan of Treatment Upcoming Encounters Date Type Specialty Care Team Description 09/08/2022 Procedure visit Aesthetic Medicine and Juanita Vaz, Surgery WATER PROOFER, C.N.P. [address] [place] [phone] (Wo rk) 09/08/2022 Comprehensive Visit [facility] Medicine and Lucero Pritchard, Surgery MJayda, Ph.D. [address] [place] [address] (Wo rk) documented as of this encounter Procedures Procedure Name Priority Date/Time Associated Diagnosis Comme nts THYROID FUNCTION Routine 06/22/2018 10:37 Regurgitation Mitral Results for this CASCADE, S AM CDT procedure are i n the results section. CBC WITHOUT Routine 06/22/2018 10:37 Regurgitation Mitral Res ults for this DIFFERENTIAL, B AM CDT procedure ar e in the results section. SODIUM, S/P Routine 06/22/2018 10:37 Regurgitation Mitral Res ults for this AM CDT procedure are i n the results section. POTASSIUM, S/P Routine 06/22/2018 10:37 Regurgitation Mitral R esults for this AM CDT procedure are i n the results section. PHOSPHORUS Routine 06/22/2018 10:37 Osteopenia Results for this (INORGANIC), S AM CDT procedure are in the results section. CREATININE WITH Routine 06/22/2018 10:37 Regurgitation Mitral Results for this EGFR, S/P AM CDT procedure are i n the results section. documented in this encounter Results Thyroid Function [place] (06/22/2018 10:37 AM CDT) athologist Signature TSH, Sensitive 0.7 0.3 - 4.2 06/22/2018 [facility] mIU/L 11:49 AM CDT LABORATORIES - [facility] Specimen Anatomical Collection Method Collection Time Receive d Time (Source) Location / / Volume Laterality Blood (Blood, 06/22/2018 10:37 06/22/2018 Venous) AM CDT 10:59 AM CDT Qi Scott M.D. LAB BLOOD ADD-ON Performing Organization Address City/State/ZIP Code Phon e Number [facility] LAB[facility]ATORIES - [address] [place], [place] [address] [facility] (ABNORMAL) CBC without Differential (06/22/2018 10:37 AM CDT) Patholo gist Method Time Signature Hemoglobin 14.4 11.6 - 06/22/2018 [facility] 15.0 g/dL 11:09 AM CDT LABORATORIES - [facility] Hematocrit 43.2 35.5 - 06/22/[address] [facility] 44.9 % 11:09 AM CDT LABORATORIES - [facility] Erythrocytes 4.71 3.92 - 06/22/2018 [facility] 5.13 11:09 AM CDT LABORATORIES - x10(12)/L [facility] MCV 91.7 78.2 - 06/22/2018 [facility] 97.9 fL 11:09 AM CDT LABORATORIES - [facility] RBC Distrib 13.1 12.2 - 06/22/2018 [facility] Width 16.1 % 11:09 AM CDT LABORATORIES [facility] Platelet Count 153 (L) 157 - 371 06/22/2018 [facility] x10(9)/L 11:09 AM CDT LABORATORIES - [facility] Leukocytes 5.9 3.4 - 9.6 06/22/2018 [facility] x10(9)/L 11:09 AM CDT LABORATORIES [facility] Specimen Anatomical Collection Method Collection Time Receive d Time (Source) Location / / Volume Laterality Blood (Blood, 06/22/2018 10:37 06/22/2018 Venous) AM CDT 10:59 AM CDT Qi Scott M.D. LAB BLOOD ADD-ON Performing Organization Address City/State/ZIP Code Phon e Number [facility] - [address] [place], [place] [address] [facility] Creatinine with Estimated GFR (06/22/2018 10:37 AM CDT) Analysis Performed At Patho logist Time Signature Creatinine 0.76 0.59 - 06/22/2018 [facility] 1.04 mg/dL 11:49 AM CDT LABORATORIES [facility] eGFR-Non 79 >=60 06/22/2018 [facility] Black/ mL/min/BSA 11:49 AM CDT LABORATORIES - [facility] Comment: ----ADDITIONAL INFORMATION---- Estimated GFR calculated using the 2009 CKD_EPI creatinine equation. eGFR-Black/ >90 >=60 mL/min/BSA 06/22/2018 11:4 9 [facility] Fijian AM CDT LABORATORIES [facility] Comment: ----ADDITIONAL INFORMATION---- Estimated GFR calculated using the 2009 CKD_EPI creatinine equation. Specimen Anatomical Collection Method Collection Time Receive d Time (Source) Location / / Volume Laterality Blood (Blood, 06/22/2018 10:37 06/22/2018 Venous) AM CDT 10:59 AM CDT Qi Scott M.D. LAB BLOOD ADD-ON Performing Organization Address City/State/ZIP Code Phon e Number [facility]ATORIES - 200 [place] [phone] [facility] Potassium (06/22/2018 10:37 AM CDT) P athologist Signature Potassium, S 4.8 3.6 - 5.2 06/22/2018 [facility] mmol/L 11:49 AM CDT [facility] Specimen Anatomical Collection Method Collection Time Receive d Time (Source) Location / / Volume Laterality Blood (Blood, 06/22/2018 10:37 06/22/2018 Venous) AM CDT 10:59 AM CDT Qi Scott M.D. LAB BLOOD ADD-ON Performing Organization Address City/[facility]/ZIP Code Phon e Number [facility] LABORATORIES - [address] [place] [address] [facility] Sodium (06/22/2018 10:37 AM CDT) P athologist Signature Sodium, S 141 135 - 145 06/22/2018 [facility] mmol/L 11:49 AM CDT [facility] Specimen Anatomical Collection Method Collection Time Receive d Time (Source) Location / / Volume Laterality Blood (Blood, 06/22/2018 10:37 06/22/2018 Venous) AM CDT 10:59 AM CDT Qi Scott M.D. LAB BLOOD ADD-ON Performing Organization Address City/State/ZIP Code Phon e Number [facility]IES - [address] [place] [address] [facility] Phosphorus Inorganic (06/22/2018 10:37 AM CDT) Analysis Performed At Patho logist Time Signature Phosphorus 3.8 2.5 - 4.5 06/22/2018 [facility] (Inorganic), S mg/dL 11:49 AM CDT LABORATORIES [facility] Specimen Anatomical Collection Method Collection Time Receive d Time (Source) Location / / Volume Laterality Blood (Blood, 06/22/2018 10:37 06/22/2018 Venous) AM CDT 10:59 AM CDT Christine Gray APRN, C.N.P., D.N.P. LAB BLOOD ADD-ON Performing Organization Address City/State/ZIP Code Phon e Number [facility]IES - [address] [place] [address] [facility] documented in this encounter Visit Diagnoses Diagnosis Osteopenia Regurgitation Mitral documented in this encounter Care Teams Crisis Intervention Counselor Relationship Specialty Start Date End Date Elsewhere, Pcp PCP - General Internal Medicine 07/03/17 documented as of this encounter
--- OUTSIDE RECORDS SUMMARY | 2022-07-30 19:57 | XMS_ITS | Encounter Summary ---
:1945 Author Organization [facility] Address [address] [place] [address] Care Team Providers Name Role Phone Elsewhere, Pcp Primary Care Provider Unavailable Reason for Visit Reason Comments Immunizations Encounter Details Date Type Department Care Team Description 06/03/2018 Nurse Only Section of Preventive, Christine Gray, Immunizations Transportation and GLUE JOINTER OPERATOR, C.N.P., D.N.P. Occupational Medicine in [address] [place] [address] [place] [phone] [place] [address] [phone] Social History Tobacco Use Types Packs/Day Years [...] or slept in a mcc (including now)? Sex Assigned at Date Recorded Female 07/26/2020 9:06 PM CDT documented as of this encounter Plan of Treatment Upcoming Encounters Date Type Specialty Care Team Description 09/08/2022 Procedure visit Aesthetic Medicine and Juanita Vaz, Surgery GLUE JOINTER OPERATOR, C.N.P. [address] [place] [phone] (Charlotte rk) 09/08/2022 Comprehensive Visit Aesthetic Medicine Lucero Mckeon, Surgery MAnaliDAnali, Ph.D. [address] [place] [phone] (Charlotte rk) documented as of this encounter Visit Diagnoses Not on filedocumented in this encounter Care Teams Internet Sales Representative Relationship Specialty Start Date End Date Elsewhere, Pcp PCP - General Internal Medicine 07/03/17 documented as of this encounter
--- OUTSIDE RECORDS SUMMARY | 2022-07-30 19:57 | XMS_ITS | Encounter Summary ---
:1945 Author Organization [facility] Address [address] [place] [address] Care Team Providers Name Role Phone Elsewhere, Pcp Primary Care Provider Unavailable Encounter Details Date Type Department Care Team Description 06/21/2018 Hospital Encounter Department of Qi Scott Regurg itation [facility], in [address] [place] [phone] [place], [place] [phone] (Work) [phone] Social History Tobacco Use Types Packs/Day Years [...] or slept in a detention (including now)? Sex Assigned at Date Recorded [...] CINNAMON Take 2 tablets by 0 019 [id number]-[id number]-ZLW ORAL mouth daily. garlic tablet Take 1 tablet by 0 05/24/201511/30 mouth 3 (three) times a day. tricia root (TRICIA Take 1 capsule by 0 5 11/30/2018 EXTRACT ORAL) mouth 3 (three) times a day. glucosamine/msm/csa/ashlyn/h Take 1 tablet by 0 05/0511/30/2018 rb115 mouth 2 (two) times (VHWMXJEIPB-XAWAS-IRX-ASHLYN a day. -115HC ORAL) hydrocortisone Insert 1 [...] mg 0 11/30/2018 powder UNABLE TO FIND Only [place] 200mg 0 08/05 valacyclovir HCl (VALTREX Take by mouth as 0 02/16/2019 ORAL) needed. documented as of this encounter Plan of Treatment Upcoming Encounters Date Type Specialty Care Team Description 09/08/2022 Procedure visit Aesthetic Medicine and Juanita Vaz, Surgery PRODUCTION LEAD, C.N.P. [address] [place] [address] (Wo rk) 09/08/2022 Comprehensive Visit Aesthetic Medicine and [place], Lucerogayatri Decker Surgery Francesca, Ph.D. [address] [place] [phone] (Wo rk) documented as of this encounter Procedures Procedure Name Priority Date/Time Associated Diagnosis Comme nts DX CHEST AP OR RAD - Routine 06/21/2018 9:00 Regurgitation Mitral R esults for this PA AND LATERAL 2 (most inpatients AM CDT procedu re are in VIEWS and all the results outpatients) section. documented in this encounter Results DX Chest AP or PA and Lateral 2 Views (06/21/2018 9:00 AM CDT) Anatomical Region Laterality Modality Chest, Thoracic RST LOS, Thoracic ARZ LOS, Thoracic N/A Digital Radiography FLA LOS Specimen (Source) Anatomical Collection Method Collection Time Re ceived Time Location / / Volume Laterality 06/21/2018 9:50 AM CDT Impressions 06/21/2018 9:51 AM CDT IMPRESSION: ??Mildly tortuous aorta. Heart size and pulmonary vascularity are within normal limits. Biopsy clip left b reast. Chest otherwise negative. Narrative 06/21/2018 9:51 AM CDT EXAM: ??DX CHEST AP OR PA AND LATERAL 2 VIEWS Procedure Note Keysha Pablo M.D. - 06/21/2018Fo rmatting of this note might be different from the original. EXAM: DX CHEST AP OR PA AND LATERAL 2 EWS IMPRESSION: Mildly tortuous aorta. Heart size and pulmonary vascularity are within normal limits. Biopsy clip left b reast. Chest otherwise negative. Qi WARD [facility] BERE JORGENSEN documented in this encounter Visit Diagnoses Diagnosis Regurgitation Mitral documented in this encounter Care Teams Laborer Wharf Relationship Specialty Start Date End Date Elsewhere, Pcp PCP - General Internal Medicine 07/03/17 documented as of this encounter
--- OUTSIDE RECORDS SUMMARY | 2022-07-30 19:57 | XMS_ITS | Encounter Summary ---
:1945 Author Organization [facility] Address [address] [place] [address] Care Team Providers Name Role Phone Elsewhere, Pcp Primary Care Provider Unavailable Reason for Visit Reason Onset Date Comments Communication 08/09/2018 Encounter Details Date Type Department Care Team Description 08/09/2018 Clinical Communication Department of Trina Carter Dermatology in Airam Malone M.D. [place], [place] [address] [facility] [address] [place] [phone] Social History Tobacco Use Types Packs/Day Years [...] slept in a skilled nursing (including now)? Sex Assigned at Date Recorded Female 07/26/2020 9:06 PM CDT documented as of this encounter Miscellaneous Notes Telephone Encounter - Simeon Emanuel V - 08/09/2018 12:30 PM CST Please reach out to the patient to complete an ARF, add the GIM request and appropriate Request Notes ADOPTION COUNSELOR Telephone Encounter - Eleni Bautista - 08/09/2018 12:10 PM CST GIM/DERM Career Education Teacher Patient Patient Name: Yamileth Sheikh Patient Clinic Number: [id number] Indication: Dystrophic Toenail Comment: No Bx ADOPTION COUNSELOR documented in this encounter Plan of Treatment Upcoming Encounters Date Type Specialty Care Team Description 09/08/2022 Procedure visit Aesthetic Medicine and Juanita Vaz, Surgery SWEATER OPERATOR, C.N.P. [address] [place] [phone] (Wo rk) 09/08/2022 Comprehensive Visit Aesthetic Medicine Lucero Mckeon, Surgery M.D., Ph.D. [address] [place] [phone] (Wo rk) documented as of this encounter Visit Diagnoses Not on filedocumented in this encounter Care Teams Evp Head Of [employer] Experience Strategy Relationship Specialty Start Date End Date Elsewhere, Pcp PCP - General Internal Medicine 07/03/17 documented as of this encounter
--- OUTSIDE RECORDS SUMMARY | 2022-07-30 19:57 | XMS_ITS | Encounter Summary ---
:1945 Author Organization [facility] Address [address] [place] [address] Care Team Providers Name Role Phone Elsewhere, Pcp Primary Care Provider Unavailable Reason for Visit Outpatient (Routine) - Closed Specialty Diagnoses / Procedures Referred By Contact Refer red To Contact Diagnoses Screening Examination Skin Cancer Manisha Mead M.D. [facility] [address] [place] [phone] Referral ID Status Reason Start Date Expiration Date Visits Requ ested Visits Authorized [id number] Closed 09/06/2018 09/06/2019 1 1 Encounter Details Date Type Department Care Team Description 12/01/2018 Comprehensive Visit Department of Sheyla Schroeder is Seborrheic (Primary Dx); Dermatology in [facility], Screening Exa mination Skin Cancer; [facility], C.N.P., Onychomycosis [place] D.N.P. 200 [facility] 200 [place] [phone] Social History Tobacco Use Types Packs/Day Years [...] or slept in a usp (including now)? Sex Assigned at Date Recorded Female 07/26/2020 9:06 PM CDT documented as of this encounter Consult Notes Page Schroeder APRN, C.N.P., M.S.N. - 12/01/2018 1:20 PM CST REFERRED BY Manisha Mead M.D. CHIEF COMPLAINT/REASON FOR VISIT Right toenail changes HISTORY OF PRESENT ILLNESS Ms. Yamileth Sheikh is a pleasant 73 y.o. female who presents today for a full skin cancer screening examination. Today, the patient is most concerned about a toenail that is involved by fungus. Shehas been taking fluconazole 200 mg once weekly for the past year without resolution of the fungus. She also has been applying Ciclopirox cream to her toes and soaking the feet in vinegar and Listerine mouth wash without improvement. She has this very troubled by the appearance of a now. Allergies Allergen Reactions ??? Adhesive Tape-Silicones Rash ??? Codeine GI intolerance ??? Latex Rash ??? Morphine GI intolerance ??? Nickel Rash ??? Perindopril Tinnitus and Cough Other reaction(s): Cough ??? Propofol GI intolerance PAST MEDICAL HISTORY Negative for skin cancer FAMILY HISTORY Negative for skin cancer PHYSICAL EXAM General: Awake, alert, in no acute distress, and with appropriate affect. Eyes: No scleral injection or icterus. No eyelid abnormalities. Lymph: No lower extremity edema. Skin: I have examined the scalp, face, neck, chest, abdomen, back, bilateral upper extremities, and bilateral lower extremities. Alvarado skin type II. There is evidence of dermatoheliosis in sun-exposed areas. A number of skin colored to dark brown macules and papules on the back, trunk, and extremities are consistent with nevi. On the trunk and extremities are waxy brown, stuck on appearing papules. The right great toenail is thickened and yellow in color. IMPRESSION/REPORT/PLAN #1 Skin cancer screening examination #2 Dermatoheliosis Sun protection and sun avoidance were reviewed with the patient. Educational materials were providedregarding skin self-examination, the warning signs and symptoms of skin cancer, and the proper use of sunscreens. I would recommend a full skin cancer screening examination with an appropriately trained clinician every 1 to 3 years or sooner as needed. #3 Onychomycosis I discussed with Ms. Sheikh that she likely does have involvement of toenail fungus including the right great toe. We typically treat with fluconazole daily for 12 weeks. This medication can be damaging to the liver resulting in liver failure. We often do not recommend treatment for people age over 50 years. If she would like to pursue treatment we could obtain a nail clipping, order labs, and prescribed the medication. I discussed that the recurrence rate as high in the future. After discussion, she would like to wait on any further treatment. I encouraged her to use camouflage with toenail latvian if the toenail is bothersome to her appearance burk. #4 Benign-appearing nevi The ABCDE criteria for melanoma was reviewed with the patient. None of the patient's nevi reach the clinical threshold for biopsy. I recommend continued sun protection, self-skin examinations, and observation. Should any of the patient's nevi change in size, color, texture, or shape or develop symptoms such as itching or bleeding, I recommend an immediate return visit for reassessment. #5 Seborrheic keratosis The benign nature of the skin lesion(s) was discussed with the patient. No treatment is required. I recommend continued observation. Should symptoms or changes develop related to this condition, I would recommend a return visit for reassessment. PATIENT EDUCATION Ready to learn. No apparent learning barriers were identified. Learning preferences include listening. Explained diagnosis and treatment plan; patient/guardian of patient expressed understanding of thecontent. PORTER documented in this encounter Plan of Treatment Upcoming Encounters Date Type Specialty Care Team Description 09/08/2022 Procedure visit Aesthetic Medicine and Juanita Vaz, Surgery SCREEN HANDLER, C.N.P. [address] [place] [phone] (Charlotte bentley) 09/08/2022 Comprehensive Visit Aesthetic Medicine and Lucero Pritchard, Surgery MJayda, Ph.D. [address] [place] [phone] (Charlotte bentley) documented as of this encounter Visit Diagnoses Diagnosis Keratosis Seborrheic - Primary Screening Examination Skin Cancer Onychomycosis documented in this encounter Care Teams Soil Specialist Relationship Specialty Start Date End Date Elsewhere, Pcp PCP - General Internal Medicine 07/03/17 documented as of this encounter
--- OUTSIDE RECORDS SUMMARY | 2022-07-30 19:57 | XMS_ITS | Encounter Summary ---
:1945 Author Organization [facility] Address [address] [place] [id number] Care Team Providers Name Role Phone Elsewhere, Pcp Primary Care Provider Unavailable Reason for Referral Outpatient (Routine) - Closed Specialty Diagnoses / Procedures Referred By Contact Refer red To Contact Vascular Medicine Diagnoses Varicose Vein Lower Extremity Bilateral Varicose Vein Lower Extremity With Pain Bilateral Michele Mello [place] M.D. [address] [place] [phone] Referral ID Status Reason Start Date Expiration Date Visits Requ ested Visits Authorized [id number] Closed 12/01/2018 12/01/2019 1 1 S PLANNER Reason for Visit Outpatient (Routine) - Closed Specialty Diagnoses / Procedures Referred By Contact Refer red To Contact Vascular Medicine Diagnoses Varicose Vein Lower Extremity Bilateral Manisha Mead M.D. [facility] [address] [place] [phone] Referral ID Status Reason Start Date Expiration Date Visits Requ ested Visits Authorized [id number] Closed 09/06/2018 09/06/2019 1 1 Encounter Details Date Type Department Care Team Description 12/01/2018 Comprehensive Visit Division of Vascular Re Mello Varicose Vein Lower Extremity With Pain Bilateral (Primary Dx); and Rahul Corbin M.D. Varicose Vein Lower Extremity Bilateral Surgery in [address] [place] [address] [place] [phone] [place], [place] [phone] (Work) [phone] Social History Tobacco Use Types Packs/Day Years [...] or relatives? How often do you attend mormon or More than 4 times per year 01/28/2021 mandaen services? Do you belong to any clubs or Yes 01/28/2021 organizations such as mormon groups, unions, fraternal or athletic groups, or [...] or slept in a halfway (including now)? Sex Assigned at Date Recorded Female 07/26/2020 9:06 PM CDT documented as of this encounter Last Filed Vital Signs Vital Sign Reading Time Taken Comments Blood Pressure - - Pulse - - Temperature - - Respiratory Rate - - Oxygen Saturation - - Inhaled Oxygen Concentration - - Weight 66.1 kg (145 lb 11.6 oz) 12/01/2018 3:31 PM SALES PLANNER Height - - Body Mass Index 23.7 11/30/2018 12:53 PM SALES PLANNER documented in this encounter Consult Notes Michele Mello M.D. - 12/01/2018 2:40 PM CST Yamileth Sheikh : 1945 Visit Date: 12/01/18 Manisha Mead M.D. SUBJECTIVE CHIEF COMPLAINT/ REASON FOR VISIT: HISTORY OF PRESENT ILLNESS: Yamileth Sheikh is a 73 y.o. female that comes to the clinic for evaluation bilateral lower extremity varicose veins. She refers mild to moderate pain in the area of the varicosities, right leg moresymptomatic than the left, which has been worsening and limiting her quite a bit. She has no heaviness or edema in the lower extremities, and the pain is mostly located specifically in the area of the varicosities. She wears compression stockings, which are over the counter, knee-high. She used panty hose her stockings in the past, but had difficulty in applying those, therefore, went back to the knee-high stockings. No history of DVT, SVT, bleeding. Previous great saphenous vein ablation on the left over 20 years ago. Otherwise, patient is overall healthy. She has hypertension, hyperlipidemia hemorrhoids, osteopenia. The current medications, allergies, medical, surgical, social, and family history sections of the chart have been reviewed and updated as pertinent. Current Medications: ??? B complex-vitamins (BALANCE B-50) tablet, Take 1 tablet by mouth 2 (two) times a day. ??? cholecalciferol (VITAMIN D3) 2,000 Unit capsule, Take 1 tablet by mouth daily. ??? ciclopirox (LOPROX) 0.77 % cream, Apply topically 2 (two) times a day. ??? co-enzyme Q-10 (COQ-10) 100 mg capsule, Take 100 mg by mouth daily. ??? estradiol (ESTRACE) 0.1 mg/g (0.01%) vaginal cream, Insert 1 application into the vagina as directed. 3 times a week on the labia ??? estradiol (ESTRING) 2 mg (7.5 mcg /24 hour) vaginal ring, Insert 1 application into the vagina as directed. Every 3 months ??? irbesartan (AVAPRO) 150 mg tablet, Take 150 mg by mouth daily. ??? L-LYSINE ORAL, Take 1 tablet by mouth 2 (two) times a day. 500 mg ??? omega-3 fatty acids/fish oil (OMEGA 3 FISH OIL ORAL), Take 2 capsules by mouth daily. ??? rosuvastatin (CRESTOR) 5 mg tablet, Take 5 mg by mouth daily. ??? valacyclovir HCl (VALTREX ORAL), Take by mouth as needed. ??? vitamin E 100 unit capsule, Take 400 Units by mouth daily. ??? turmeric (CURCUMIN MISC), Take 1 tablet by mouth daily. REVIEW OF SYSTEMS: Pertinent items are noted in HPI; all other systems were reviewed per [facility] History. OBJECTIVE VITAL SIGNS Vitals: 12/01/18 1531 Weight: 66.1 kg PHYSICAL EXAM: General: Alert and oriented, No acute distress. Extremities: Warm, well perfused, no edema. Multiple small varicose veins, overall spider veins, buta few 1-2 mm varicosities in the posterior right and left legs. No significant varicosities in the thighs. Bilateral dorsalis pedis and posterior tibial pulses are palpable and normal. VASCULAR EXAM: Pulses Exam DIAGNOSTIC STUDIES: I have reviewed the patient's current laboratory, imaging, and other diagnostic studies as pertinent. Duplex ultrasound demonstrates bilateral deep systems are competent, bilateral great saphenous veinsare incompetent in the calf. There is an anterior accessory saphenous vein which is incompetent in the left thigh, but does not track to the saphenofemoral junction. The great saphenous vein on the left above the knee is absent. The right small saphenous vein is moderately incompetent, the left small saphenous vein is competent. ASSESSMENT / PLAN Patient is quite thin and I would be concerned about performing radiofrequency ablation of the below-knee great saphenous veins given the risk for saphenous nerve injury as well as skin currie. If additional treatment is recommended, would probably attempt to treat with the vena seal system. I would 1st try to treat her with 20-30 mm of mercury graded, appropriately fitted compression stockings. I provided her with knee-high and thigh-high prescriptions. I also believe she would benefit from sclerotherapy of her spider veins, as most of her symptoms occur exactly at the level of the veins. I explained to her the pathophysiology, natural history, prognosis with and without treatment of varicose veins, deep venous insufficiency, and the rationale for treatment. I referred to the patient that I would like to trial her with compression stockings prior to recommending surgery. We will see her back in 3 months after a trial of compression, had which point, if her symptoms warrant, we would recommend the aforementioned procedure. DIAGNOSIS: #1 Varicose Vein Lower Extremity Bilateral #2 Varicose Vein Lower Extremity With Pain Bilateral Michele Mello M.D. S PLANNER documented in this encounter Plan of Treatment Upcoming Encounters Date Type Specialty Care Team Description 09/08/2022 Procedure visit Aesthetic Medicine and Juanita Vaz, Surgery COMPOUNDER [employer], C.N.P. [address] [place] [phone] (Charlotte rk) 09/08/2022 Comprehensive Visit Aesthetic Medicine and Lucero Pritchard, Surgery M.DAnali, Ph.D. [address] [place] [phone] (Charlotte bentley) Scheduled Referrals Name Type Priority Associated Diagnoses Order S [facility] Vascular Medicine Outpatient Referral Routine Varicose Vein Lo wer Expected: - Venous / Extremity Bilate ral 12/01/2018 varicose Varicose Vein Lower (Approxi mate), vein/sclero Extremity With Pain Expires: consult (clinic) Bilateral 12/01/2021 documented as of this encounter Visit Diagnoses Diagnosis Varicose Vein Lower Extremity With Pain Bilateral - Primary Varicose Vein Lower Extremity Bilateral documented in this encounter Care Teams Frame Feeder Relationship Specialty Start Date End Date Elsewhere, Pcp PCP - General Internal Medicine 07/03/17 documented as of this encounter
--- OUTSIDE RECORDS SUMMARY | 2022-07-30 19:57 | XMS_ITS | Encounter Summary ---
:1945 Author Organization [facility] Address [address] [place] [address] Care Team Providers Name Role Phone Elsewhere, Pcp Primary Care Provider Unavailable Encounter Details Date Type Department Care Team Description 08/29/2018 Orders Only Division of Endocrinology in Margot Galdamez [place], [place] [address] [place] [phone] Social History Tobacco Use Types Packs/Day [...] More than 4 times per year 01/28/2021 episcopalian services? Do you belong to any clubs [...] or slept in a assisted (including now)? Sex Assigned at Date Recorded Female 07/26/2020 9:06 PM CDT documented as of this encounter Plan of Treatment Upcoming Encounters Date Type Specialty Care Team Description 09/08/2022 Procedure visit Aesthetic Medicine and Juanita Vaz, Surgery PHONE TECHNICIAN, C.N.P. [address] [place] [phone] (Charlotte bentley) 09/08/2022 Comprehensive Visit Aesthetic Medicine and Lucero Pritchard, Surgery MJayda, Ph.D. [address] [place] [phone] (hCarlotte bentley) documented as of this encounter Visit Diagnoses Not on filedocumented in this encounter Care Teams Regrind Mill Operator Relationship Specialty Start Date End Date Elsewhere, Pcp PCP - General Internal Medicine 07/03/17 documented as of this encounter
--- OUTSIDE RECORDS SUMMARY | 2022-07-30 19:57 | XMS_ITS | Encounter Summary ---
:1945 Author Organization [facility] Address [address] [place] [address] Care Team Providers Name Role Phone Elsewhere, Pcp Primary Care Provider Unavailable Reason for Visit Reason Comments Patient Education Appointment Request (Routine) - Closed Specialty Diagnoses / Procedures Referred By Contact Refer red To Contact Patient Education Referral ID Status Reason Start Date Expiration Date Visits Requ ested Visits Authorized [id number] Closed 11/30/2018 11/30/2019 1 1 Encounter Details Date Type Department Care Team Description 12/01/2018 Education Department of Patient Mitul Delgado Education in [place], ([facility] [address] [place] [phone] Social History Tobacco Use Types Packs/Day [...] visit Aesthetic Medicine and Juanita Vaz, Surgery MILITARY LAWYER, C.N.P. [address] [place] [phone] (Charlotte bentley) 09/08/2022 Comprehensive Visit Aesthetic Medicine Lucero Mckeon, Surgery MJayda, Ph.D. [address] [place] [phone] (Charlotte bentley) documented as of this encounter Visit Diagnoses Not on filedocumented in this encounter Care Teams Supervisor Porcelain Department Relationship Specialty Start Date End Date Elsewhere, Pcp PCP - General Internal Medicine 07/03/17 documented as of this encounter
--- OUTSIDE RECORDS SUMMARY | 2022-07-30 19:57 | XMS_ITS | Encounter Summary ---
:1945 Author Organization [facility] Address [address] [place] [address] Care Team Providers Name Role Phone Elsewhere, Pcp Primary Care Provider Unavailable Reason for Visit Appointment Request (Routine) - Closed Specialty Diagnoses / Procedures Referred By Contact Refer red To Contact General Internal Medicine Referral ID Status Reason Start Date Expiration Date Visits Requ ested Visits Authorized [id number] Closed 08/11/2018 08/11/2019 1 Encounter Details Date Type Department Care Team Description 11/30/2018 Comprehensive Visit Division of Manisha Maldonado Vein Lower Extremity With Pain Bilateral (Primary Dx); Internal Medicine in Ej Kaur Hypertension Essential Primary; [place], [place] [address] [facility] Osteopenia; [address] [place], [place] Hyperlipidemia; [place] [address] Hemorrhoids; [phone] Tinnitus Bilateral Social History Tobacco Use Types Packs/Day Years [...] or relatives? How often do you attend muslim or More than 4 times per year 01/28/2021 rastafarian services? Do you belong to any clubs or Yes 01/28/2021 organizations such as muslim groups, unions, fraternal or athletic groups, or [...] Sign Reading Time Taken Comments Blood Pressure 118/81 11/30/2018 12:53 PM PUMP SERVICER SUPERVISOR Pulse 69 11/30/2018 12:53 PM PUMP SERVICER SUPERVISOR Temperature - - Respiratory Rate - - Oxygen Saturation - - Inhaled Oxygen Concentration - - Weight 65.5 kg (144 lb 6.4 oz) 11/30/2018 12:53 PM PUMP SERVICER SUPERVISOR Height 167 cm (5' 5.75) 11/30/2018 12:53 PM PUMP SERVICER SUPERVISOR Body Mass Index 23.49 11/30/2018 12:53 PM PUMP SERVICER SUPERVISOR documented in this encounter H&P Notes Manisha Mead M.D. - 11/30/2018 1:00 PM CST SUBJECTIVE CHIEF COMPLAINT / REASON FOR VISIT Yamileth Sheikh is a 73 y.o. female who presents for evaluation of several concerns including varicose veins in both legs with some associated pain with prolonged standing, recent problems with constipation and symptomatic hemorrhoid and follow-up of hyperlipidemia and hypertension. HISTORY OF PRESENT ILLNESS 1. Varicose veins She has had varicose veins in her legs for number of years. She has mostly spider veins in the ankles and feet and has some saccular varicosities in the posterior thigh near the knee as well as the proximal calf. She has never had any venous thromboembolism. She gets some pain in her legs with prolonged standing. She has purchased a pair compression stockings and wears the most days. She does feel that this reduces the degree of pain she has. She has some puffiness around the ankles periodically butno marked edema. She would like further evaluation for the varicosities and possible treatment. 2. Hemorrhoids She has no past history of hemorrhoid problems. In the past few months she has been more constipatedthan normal and has had to strain to pass stool. She has developed a mildly symptomatic hemorrhoid which causes some pain with cleaning and with passage of bowel movement. She has recently stopped calcium supplements because she felt this was causing some of the constipation and she has add more fiberto her diet. This is helped somewhat but has not completely alleviated the symptoms from the hemorrhoid. She has had no rectal bleeding. Colonoscopy performed here in 2014 was negative for any abnormality. Retroflexed view of the rectum did not demonstrate hemorrhoids. She has remote history of hemorrhoid banding at the [facility]. 3. Hyperlipidemia She has moderate hyperlipidemia being treated with statin therapy. Her estimated cardiovascular 10 year risk is about 14%. She was seen in the Cardiology Clinic about 6 months ago and they recommended continued statin therapy. She is in the process of changing her diet and exercise plan. She has gone to a virtually 100% Mediterranean diet and has increased her physical activity significantly. Over the course of the last 8 months or so she has lost weight from 174 lb to her current weight of 142 lb. She has hypertension which is treated medically. She does not use tobacco. She does not have a familyhistory of premature cardiovascular disease. She denies all cardiovascular symptoms. The following portions of the patient's history were reviewed and updated as appropriate: allergies,current medications, family history, medical history, social history, surgical history and problem list. REVIEW OF SYSTEMS REVIEW OF SYSTEMS OBJECTIVE PHYSICAL EXAM Physical Exam Constitutional: She is oriented to person, place, and time. She appears well- developed and well-nourished. HENT: Head: Normocephalic and atraumatic. Right Ear: External ear normal. Left Ear: External ear normal. Nose: Nose normal. Mouth/Throat: Oropharynx is clear and moist. Eyes: Conjunctivae and EOM are normal. Pupils are equal, round, and reactive to light. Neck: No thyromegaly present. Cardiovascular: Normal rate, regular rhythm and intact distal pulses. She exhibits no edema. Exam reveals no gallop. Murmur heard. Bilateral spider varicosities particularly around the ankles. Saccular varicosities are present in the posterior thighs in proximal calves. No cords are palpable. She has no pitting edema. Cardiac exam reveals a soft mitral regurgitation murmur with no gallop. Pulmonary/Chest: Effort normal and breath sounds normal. Abdominal: Soft. Bowel sounds are normal. She exhibits no mass. There is no tenderness. No organomegaly palpable. Musculoskeletal: She exhibits no tenderness or deformity. Lymphadenopathy: She has no cervical adenopathy. Neurological: She is alert and oriented to person, place, and time. Skin: Skin is warm and dry. Scattered SK's. Psychiatric: She has a normal mood and affect. Vitals reviewed. ASSESSMENT / PLAN #1 Varicose Vein Lower Extremity With Pain Bilateral She will be seen in the vascular Center after lower extremity venous hemodynamic studies completed. She would like to consider treatment and they will advise her regarding whether sclerotherapy would be advised. #2 Hypertension Essential Primary Blood pressure is under adequate control on current medications #3 Osteopenia She saw the bone mineral Clinic consultants last year they have recommended continued adequate dietary calcium intake, vitamin-D intake and regular weight- bearing exercise. She will have bone density repeated at the end of this year. #4 Hyperlipidemia Lipid profile was last repeated last year. She is doing well on her current statin therapy. #5 Hemorrhoids We talked about conservative therapy for this. I have asked her to use MiraLax to soften the stool more and to increase water intake to about 2 L per day. She should clean the area of the hemorrhoid with either moist with a paper or a moist towel at. She can use hraw-thf-bayehgd hemorrhoid medication or 1% hydrocortisone to try to reduce the hemorrhoid size. If it is still symptomatic after doing allthese things we can reconsider whether not to have her here for evaluation and Colorectal surgery Clinic #6 Tinnitus Bilateral She has bilateral tinnitus and would like to have some additional therapy if it is available. I willask to see if audiology has recommendations for people with persistent tinnitus. Her outside audiogram 2017 and 1 from 2014 has been entered into the [facility] record. I personally spent a total of 50 minutes in obtaining the history of present illness, past history, examination, counseling and discussion with the patient and coordination of care as described above. Answers for HPI/ROS submitted by the patient on 11/30/2018 Night sweats: Yes No eye issues: Yes No ENT issues: Yes No heart issues: Yes No respiratory issues: Yes Constipation: Yes Muscle pain/stiffness: Yes Change in mole or skin spot: Yes Slurred speech: Yes No mental health issues: Yes No blood/lymph issues: Yes No urinary/reproductive issues: Yes SERVICER SUPERVISOR documented in this encounter Plan of Treatment Upcoming Encounters Date Type Specialty Care Team Description 09/08/2022 Procedure visit Aesthetic Medicine and Juanita Vaz, Surgery PRESSURE CONTROL SUPERVISOR, C.N.P. [address] [place] [phone] (Charlotte bentley) 09/08/2022 Comprehensive Visit Aesthetic Medicine Lucero Mckeon, Surgery MJayda, Ph.D. [address] [place] [phone] (Charlotte bentley) documented as of this encounter Visit Diagnoses Diagnosis Varicose Vein Lower Extremity With Pain Bilateral - Primary Hypertension Essential Primary Osteopenia Hyperlipidemia Hemorrhoids Tinnitus Bilateral documented in this encounter Care Teams Fence Installer Helper Relationship Specialty Start Date End Date Elsewhere, Pcp PCP - General Internal Medicine 07/03/17 documented as of this encounter
--- OUTSIDE RECORDS SUMMARY | 2022-07-30 19:57 | XMS_ITS | Encounter Summary ---
:[address] [facility] Address [address] [place] [address] Care Team Providers Name Role Phone Elsewhere, Pcp Primary Care Provider Unavailable Encounter Details Date Type Department Care Team Description 06/16/2018 Clinical Communication Department of Qi Scott Cardiovascular Medicine Francesca in [facility] [address] [facility] [address] [place] [phone] Social History Tobacco Use Types Packs/Day Years [...] 01/28/2021 organizations such as presybeterian groups, unions, fraternal or athletic groups, or [...] [place] [facility] (including now)? Sex Assigned at Date Recorded Female 07/26/2020 9:06 PM CDT documented as of this encounter Plan of Treatment Upcoming Encounters Date Type Specialty Care Team Description 09/08/2022 Procedure visit Aesthetic Medicine and Juanita Vaz, Surgery DELIVERY SPECIALIST, C.N.P. [address] [place] [address] (Wo rk) 09/08/2022 Comprehensive Visit Aesthetic Medicine and Lucero Pritchard, Surgery MJayda, Ph.D. [address] [place] [phone] (Wo rk) documented as of this encounter Visit Diagnoses Not on filedocumented in this encounter Care Teams Scale Reclamation Tender Relationship Specialty Start Date End Date Elsewhere, Pcp PCP - General Internal Medicine 07/03/17 documented as of this encounter
--- OUTSIDE RECORDS SUMMARY | 2022-07-30 19:57 | XMS_ITS | Encounter Summary ---
:1945 Author Organization [facility] Address [address] [place] [address] Care Team Providers Name Role Phone Elsewhere, Pcp Primary Care Provider Unavailable Reason for Referral Outpatient (Routine) - Closed Specialty Diagnoses / Procedures Referred By Contact Refer red To Contact Audiology Diagnoses Tinnitus Bilateral Timmy Qiu M.D. [address] [phone] Referral ID Status Reason Start Date Expiration Date Visits Requ ested Visits Authorized [id number] Closed 02/16/2019 02/16/2020 1 1 Reason for Visit Outpatient (Routine) - Closed Specialty Diagnoses / Procedures Referred By Contact Refer red To Contact Otorhinolaryngology Diagnoses Tinnitus Bilateral Manisha Mead M.D. [facility] [address] [place] [phone] Referral ID Status Reason Start Date Expiration Date Visits V isits Requested Authorized [id number] Closed Specialty 12/02/2018 12/02/2019 1 1 Services Required Encounter Details Date Type Department Care Team Description 02/16/2019 Comprehensive Visit Department of Ladonna Duran M.D. [address] [place] [address] Loss Hearing Sensorineural Asymmetrical (Primary Dx); Otorhinolaryngology in Timmy Qiu M.D. [address] [facility] [place] [address] Tinnitus Bilateral [place], [place] [address] [place] [address] Social History Tobacco Use Types Packs/Day [...] More than 4 times per year 01/28/2021 jainism services? Do you belong to any clubs [...] documented as of this encounter Consult Notes Timmy Qiu M.D. - 02/16/2019 3:00 PM CDT SUBJECTIVE REFERRING PROVIDER Natasha Mead MD CHIEF COMPLAINT / REASON FOR VISIT Yamileth Sheikh is a 73 y.o. female who presents for evaluation of tinnitus HISTORY OF PRESENT ILLNESS 73-year-old female presenting for evaluation of hearing loss and tinnitus. She describes having tinnitus that is noticeable in quiet environments over the past 20 years. In the left ear she describes as a low airplane engine and in the right ear at higher pitched nonpulsatile ringing. Over the past 20years she states that it might be a little bit louder. She is not report significant noise exposure with exception of mowing lawns is a teenager. No history of recurrent otitis media, otorrhea, otalgia, vertigo, or prior ear surgery. She feels that she does well hearing female voices and children's voices. She will have difficulty hearing adult male voices, such as her son, when he is in a different room. Her parents had hearing loss later in life. No family history of early hearing loss or deafness. She has had multiple hearing tests over the past 15 years which she has brought in for review and comparison. She had audiogram and MRI performed today. The following portions of the patient's history were reviewed and updated as appropriate: allergies,current medications, family history, medical history, social history, surgical history and problem list. Smoking status: Never Smoker Smokeless tobacco: Never Used REVIEW OF SYSTEMS Constitutional: Negative for fever. Respiratory: Negative for dyspnea. Gastrointestinal: Negative for difficulty swallowing. OBJECTIVE PHYSICAL EXAM Gen: pleasant 73 y.o. female Psych: alert and oriented Eyes: extraocular movement intact Ears: Bilateral EACs patent, TMs intact with no middle effusion Nose: Nares patent, septum midline Mouth: Oral cavity and oropharynx patent without masses or lesions Neck: no cervical lymphadenopathy Resp: no difficulty breathing, no stridor Skin: no concerning lesions on face or neck Neuro: CN VII intact bilaterally DIAGNOSTICS Audiogram 02/16/2019 Type A tympanometry bilaterally. Right mild low-frequency rising to borderline normal hearing. Left moderate tipping to severe at 500 hertz, rising to normal hearing sensitivity. Excellent word recognition scores bilaterally. Comparison of today's audiogram to outside review of audiograms from [place] demonstrate relativelystable hearing thresholds. Over the 15 year period, 10 decibel decline in low-frequency of the left ear. Right ear remains stable. MRI brain 02/16/2019 No evidence for retrocochlear pathology within the IAC or CPA. ASSESSMENT / PLAN 1. Asymmetric low-frequency sensorineural hearing loss, left greater than right 2. Bilateral tinnitus Reviewed patient's prior audiograms with today's which demonstrates overall stable sensorineural hearing levels. She has an MRI which does not demonstrate any retrocochlear pathology. Discussed tinnitus management including hearing aids and tinnitus retraining therapy. Patient is interested in use of hearing aids. Medical clearance was provided as well as referral for hearing aid evaluation. Recommend annual audiogram. Timmy Qiu M.D. Otorhinolaryngology-Head and Neck Surgery documented in this encounter Plan of Treatment Upcoming Encounters Date Type Specialty Care Team Description 09/08/2022 Procedure visit Aesthetic Medicine and Juanita Vaz, Surgery RETAIL SELLING FLOOR LEADER, C.N.P. [address] [place] [address] (Wo rk) 09/08/2022 Comprehensive Visit Aesthetic Medicine Lucero Mckeon, Surgery Francesca, Ph.D. [address] [place] [address] (Wo rk) Scheduled Referrals Name Type Priority Associated Order Schedule Diagnoses Otorhinolaryngology - Outpatient Routine Tinnitus Expect ed: Audiology - Hearing aid Referral Bilateral 02/01 program consult (clinic) (Ap proximate), Expires: 02/16/2022 documented as of this encounter Visit Diagnoses Diagnosis Loss Hearing Sensorineural Asymmetrical - Primary Tinnitus Bilateral documented in this encounter Care Teams Granite Sandblaster Apprentice Relationship Specialty Start Date End Date Elsewhere, Pcp PCP - General Internal Medicine 07/03/17 documented as of this encounter
--- OUTSIDE RECORDS SUMMARY | 2022-07-30 19:57 | XMS_ITS | Encounter Summary ---
:1945 Author Organization [facility] Address [address] [place] [address] Care Team Providers Name Role Phone Elsewhere, Pcp Primary Care Provider Unavailable Encounter Details Date Type Department Care Team Description 07/12/2018 Clinical Communication Section of Preventive, Emerald Gray and MCLAUDIA, C.N.P., Occupational Medicine D.N.P. in [facility] [address] [facility] [address] [place] [phone] Social History Tobacco Use Types Packs/Day Years [...] or relatives? How often do you attend baptism or More than 4 times per year 01/28/2021 protestant services? Do you belong to any clubs or Yes 01/28/2021 organizations such as baptism groups, unions, fraternal or athletic groups, or [...] this encounter Miscellaneous Notes Telephone Encounter - Calli Rivero R.N. - 07/12/2018 2:23 PM CDT Left detailed message patient will need referral from her PCP. Telephone Encounter - Aniya Renteria APRN, C.N.PAnali, D.N.P. - 07/12/2018 1:39 PM CDT Yes, she will need to follow with her primary provider at home. Thank you. Telephone Encounter - Calli Rivero R.N. - 07/12/2018 10:56 AM CDT Patient was seen by Christine for PSC visit in May 2018. Now requesting a referral to Podiatry for her toenail fungus, should I tell her this needs to come from her primary provider? Please advise. documented in this encounter Plan of Treatment Upcoming Encounters Date Type Specialty Care Team Description 09/08/2022 Procedure visit Aesthetic Medicine and Juanita Vaz, Surgery CLAUDIA, C.N.P. [address] [place] [phone] (Wo rk) 09/08/2022 Comprehensive Visit Aesthetic Lucero Arita, Andreia MJayda, Ph.D. [address] [place] [phone] (Wo rk) documented as of this encounter Visit Diagnoses Not on filedocumented in this encounter Care Teams Adult Education Teacher Relationship Specialty Start Date End Date Elsewhere, Pcp PCP - General Internal Medicine 07/03/17 documented as of this encounter
--- OUTSIDE RECORDS SUMMARY | 2022-07-30 19:57 | XMS_ITS | Encounter Summary ---
:1945 Author Organization [facility] Address [address] [place] [address] Care Team Providers Name Role Phone Elsewhere, Pcp Primary Care Provider Unavailable Reason for Referral Outpatient (Routine) - Closed Specialty Diagnoses / Procedures Referred By Contact Refer red To Contact Vascular Medicine Diagnoses Varicose Vein Lower Extremity Bilateral Manisha Mead M.D. [address] [address] Referral ID Status Reason Start Date Expiration Date Visits Requ ested Visits Authorized [id number] Closed 09/06/2018 09/06/2019 1 1 Scheduling Instructions PAC utpatient (Routine) - Closed Specialty Diagnoses / Procedures Referred By Contact Refer red To Contact Diagnoses Screening Examination Skin Cancer Manisha Mead M.D. [address] [phone] Referral ID Status Reason Start Date Expiration Date Visits Requ ested Visits Authorized [id number] Closed 09/06/2018 09/06/2019 1 1 LE SALES TECHNICIAN Reason for Visit Reason Onset Date Comments Triage 08/12/2018 Encounter Details Date Type Department Care Team Description 08/12/2018 Clinical Communication Division of [facility] Debora [facility] Internal Medicine Adi Malone M.D., in [address] [place] [phone] Social History Tobacco Use Types Packs/Day Years [...] this encounter Miscellaneous Notes Telephone Encounter - Adi Cazares M.D. - 08/12/2018 2:10 PM MOBILE SALES TECHNICIAN Decision: Approve - Patient not here Consults: Dermatology: Skin check consult: Indication: skin check. Vascular: Other vascular consult. Indication: Vascular Medicine Indicaiton, varicose veins. LE SALES TECHNICIAN Telephone Encounter - Margot Townsend - 08/12/2018 2:05 PM CST Yamileth Sheikh [id number] 1945 Who filled out form: Sallie RIVERA [phone] Goals: 1) I would like a diagnosis and a plan of care and I will be coming to endocrinology but the date has not been scheduled yet 2) Dr. Wise referred me to Jordan Haque and she referred me to endocrinology Symptoms/Concerns: 1) I have multiple keratosis and growths when sometimes have to be taken off and actinic keratosis and moles . 2) I have varicose veins which also should be looked at MOST IMPORTANT: Symptom/Concern #1: I have multiple keratosis and growths when sometimes have to be taken off and actinic keratosis and moles . 1) I have multiple keratosis and growths when sometimes have to be taken off and actinic keratosis and moles . Duration: More than 6 months Previous Eval: Yes Outcome: I have got to doctor and had them taken off sometimes. I have been dealing with 30 years and as soon as they find them they take them off . 2) I have varicose veins which also should be looked at Duration: More than 6 months Previous Eval: No Outcome: Narcotics? No Medications? 12 Requested Consults: GIM Bothered by the following problems in last 2 weeks: (Scale: Not at all, Several Days, More than half the days, Nearly every day) Feeling nervous, anxious or on edge: Not at all Not being able to stop or control worrying : Not at all Little interest or pleasure in doing things : Not at all Feeling down, depressed, or hopeless: Not at all OVERALL HEALTH: (Scale: Excellent, Very good, Good, Fair, Poor) Very good RADIOLOGY QUESTIONS Iodine contrast reaction? No Gadolinium contrast reaction? Unsure Dialysis? No Kidney transplant? No Urine or no urine output past 48 hours? No Implanted medical devices or pumps? Yes I have a Medtronic stim device for stimulating the bladder and because of this I cannot have MRI ifnecessary they would have to contact Dr. Dalton Bolaños at department of urology [facility] Diabetic? No SCHEDULING QUESTIONS Dates to avoid scheduling: Sep 26-Oct 05Oct 28 Best time to contact: Morning 8:00 - 11:00 AM Afternoon NOON to 5:00 PM cell Agree? I have read the General Internal Medicine Model of Care as noted above and agree to the process outlined. LE SALES TECHNICIAN documented in this encounter Plan of Treatment Upcoming Encounters Date Type Specialty Care Team Description 09/08/2022 Procedure visit Aesthetic Medicine and Juanita Vaz, Surgery MATERIALS BUYER, C.N.P. [address] [place] [address] (Wo rk) 09/08/2022 Comprehensive Visit Aesthetic Medicine and Lucero Pritchard, Surgery Francesca, Ph.D. [address] [place] [address] (Wo rk) Scheduled Referrals Name Type Priority Associated Diagnoses Order S chedule Dermatology - Skin Outpatient Referral Routine Screening Ex pected: check consult Examination Skin 11/30/2018 (clinic) Cancer (Approximate), Expires: 11/30/2019 Vascular Medicine - Outpatient Referral Routine Varicose Vein Lower Expected: Venous / varicose Extremity Bilateral vein/sclero consult (Approxi mate), (clinic) Expires: 11/30/2019 documented as of this encounter Results Venous Lower Extremity - Hemodynamic Study (12/01/2018 10:30 AM MOBILE SALES TECHNICIAN) Anatomical Region Laterality Modality Other Specimen (Source) Anatomical Collection Method Collection Time Re ceived Time Location / / Volume Laterality 12/01/2018 10:09 AM MOBILE SALES TECHNICIAN Narrative 12/01/2018 10:09 AM MOBILE SALES TECHNICIAN Right: OUTFLOW PLETHYSMOGRAPHY: ? Patent venous outflow. ??PASSIVE REFILLING: ? No venous ins ufficiency. ??EXERCISE ??PLETHYSMOGRAPHY : ? Normal post exercise refilling time. ??CALF PUMP FUNCTION: ? Normal ejection fraction. ??CONTINUOUS WAVE DOPPLER: ?Signals are patent, spontaneous, p hasic and augment normally where evaluated. (Absent spontaneous and phasic Posterior Tibial signals may be a normal variant). ??Pulsatile signals are present. ?? Deep Venous Incompetence: ?No deep v enous incompetence detected. Left: OUTFLOW PLETHYSMOGRAPHY: ? Pat ent venous outflow. ??PASSIVE REFILLING: ? No venous insufficiency. ??EXERCISE ??PLETHYSMOGRAPHY: ? Rapid post exercise refilling time. ??CALF PUMP FUNCTI ON: ? Normal ejection fraction. ??CO NTINUOUS WAVE DOPPLER: ?Signals are patent, spontaneous, phas ic and augment normally where evaluated. (Absent spontaneous and phasic Posterior Tibial signals may be a normal variant). ??Pulsatile signals are present. ?? Jesica p Venous Incompetence: ?No deep veno us incompetence detected. Conclusions: No venous outflow obstructi on. No deep venous incompetence detected bilaterally. Normal calf pump function bilaterally. Rapid post exercise filling time on left may indicate probable superf icial venous insufficiency. ??Bilateral multilevel venous pulsatility may reflect elevated central venous pressure, right heart failure, tricuspid regurgitation, pulmonary hypertension, or other factors including normal variation. ??No prior study for comparison. Procedure Note Anthony Wheeler M.B., B.Ch. - 019 Right: OUTFLOW PLETHYSMOGRAPHY: Patent v enous outflow. PASSIVE REFILLING: No venous insufficiency. EXERCISE PLETHYSMOGRAPHY: Normal post exercise refilling time. CALF PUMP FUNCTION: Normal ejection fraction. CONTINUOUS WAVE DOPPLER: Signals are patent, spontaneous, phasic and augment normally where evaluated. (Absent spontaneous and phasic Posterior Tibial signals may be a normal variant). Pulsatile signals are present. Deep Venous Incompetence: No deep venous incompetence detected. Left: OUTFLOW PLETHYSMOGRAPHY: Patent ve nous outflow. PASSIVE REFILLING: No venous insufficiency. EXERCISE PLETHYSMOGRAPHY: Rapid post exercise refilling time. CALF PUMP FUNCTION: Normal ejection fraction. CONTINUOUS WAVE DOPPLER: Signals are patent, spontaneous, phasic and augment normally where evaluated. (Absent spontaneous and phasic Posterior Tibial signals may be a normal variant). Pulsatile signals are present. Deep Venous Incompetence: No deep venous incompetence detected. Conclusions: No venous outflow obstructi on. No deep venous incompetence detected bilaterally. Normal calf pump function bilaterally. Rapid post exercise filling time on left may indicate probable superficial venous insufficiency. Bilateral multilevel venous pulsatility may reflect elevated central venous pressure, right heart failure, tricuspid regurgitation, pulmonary hypertension, or other factors including normal variation. No prior study for comparison. Manisha Mead M.D. CV VASCULAR PROCEDURES US Lower Extremity Venous Insufficiency Bilateral (12/01/2018 9:32 AM MOBILE SALES TECHNICIAN) Anatomical Region Laterality Modality Lower Extremity, Ultrasound RST LOS, Ultrasound ARZ LOS, Santosh ateral Ultrasound Ultrasound FLA LOS Specimen (Source) Anatomical Collection Method Collection Time Re ceived Time Location / / Volume Laterality 12/01/2018 9:32 AM MOBILE SALES TECHNICIAN Impressions 12/01/2018 10:13 AM MOBILE SALES TECHNICIAN IMPRESSION: ??Varicosities and insufficiency in the bilateral lower extremities. Please see the findings for a detailed r eport. Narrative 12/01/2018 10:13 AM MOBILE SALES TECHNICIAN EXAM: ??US LOWER EXTREMITY VENOUS INSUFFICIENCY BILATERAL Exam performed with color and spectral D oppler analysis. COMPARISON: ??None. FINDINGS: RIGHT: The deep veins are patent without thromb us. 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 The SSV is moderately incompetent with v aricosities in the upper calf. A large (0.4 cm) incompetent deep green building engineer pos terior to the knee gives rise to varicosities in the upper calf. LEFT: The deep veins are patent without thromb us. Postoperative changes of prior left GSV ablation; the GSV is occluded from t he SFJ to the level of the knee. The GSV in the calf is severely incompetent with varicosities throughout the calf. A remnant of the anterior accessory great saphenous vein is incompetent and gives rise to varicosities throughout the ante rior thigh; it does not track to the SFJ and instead likely drains to a pelvic ve in. DVT SCREENING RIGHT: ??Normal. LEFT: ??Normal. Exam was performed with the patient chio vivian and the leg being evaluated in a non weight-bearing position. Right CFV: Competent. Right FV: Competent. Right Pop: Competent. Right SFJ: Competent. Right GSV Upper: Competent. Right GSV Knee: Competent. Right GSV Calf : Severe Incompetence. 5. 9 s Right SPJ: A. Right SSV Calf: Moderate Incompetence. 1 .7 s Right SFJ: 8.1 mm Right GSV Upper: 4.3 mm Right GSV Knee: 3.1 mm Right SPJ: A Left ??CFV: Competent. Left ??FV: Competent. Left ??Pop: Competent. Left ??SFJ: Absent. Left ??GSV Upper: Absent. Left ??GSV Knee: Absent. Left ??GSV Calf: Severe Incompetence. 6. 0 s Left ??SPJ: A. Left ??SSV Calf: Competent. 0.5 s Left SFJ: A Left GSV Upper: A Left GSV Knee: A Left SPJ: A Absent= A Not Imaged= x Mild = 0.5 to 1 second Moderate= 1 to 3 seconds Severe = > 3 seconds * For the femoral and popliteal veins, s ignificant reflux is greater than 1 second. May upgrade or downgrade depending on amplitude of reflux. Procedure Note Raymond Miramontes M.D. - 12/01/2018Forma tting of this note might be different from the original. EXAM: US LOWER EXTREMITY VENOUS INSUFFIC IENCY BILATERAL Exam performed with color and spectral D oppler analysis. COMPARISON: None. FINDINGS: RIGHT: The deep veins are patent without thromb us. 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 The SSV is moderately incompetent with v aricosities in the upper calf. A large (0.4 cm) incompetent deep green building engineer pos terior to the knee gives rise to varicosities in the upper calf. LEFT: The deep veins are patent without thromb us. Postoperative changes of prior left GSV ablation; the GSV is occluded from t he SFJ to the level of the knee. The GSV in the calf is severely incompetent with varicosities throughout the calf. A remnant of the anterior accessory great saphenous vein is incompetent and gives rise to varicosities throughout the ante rior thigh; it does not track to the SFJ and instead likely drains to a pelvic ve in. DVT SCREENING RIGHT: Normal. LEFT: Normal. Exam was performed with the patient chio vivian and the leg being evaluated in a non weight-bearing position. Right CFV: Competent. Right FV: Competent. Right Pop: Competent. Right SFJ: Competent. Right GSV Upper: Competent. Right GSV Knee: Competent. Right GSV Calf : Severe Incompetence. 5. 9 s Right SPJ: A. Right SSV Calf: Moderate Incompetence. 1 .7 s Right SFJ: 8.1 mm Right GSV Upper: 4.3 mm Right GSV Knee: 3.1 mm Right SPJ: A Left CFV: Competent. Left FV: Competent. Left Pop: Competent. Left SFJ: Absent. Left GSV Upper: Absent. Left GSV Knee: Absent. Left GSV Calf: Severe Incompetence. 6.0 s Left SPJ: A. Left SSV Calf: Competent. 0.5 s Left SFJ: A Left GSV Upper: A Left GSV Knee: A Left SPJ: A Absent= A Not Imaged= x Mild = 0.5 to 1 second Moderate= 1 to 3 seconds Severe = > 3 seconds * For the femoral and popliteal veins, s ignificant reflux is greater than 1 second. May upgrade or downgrade depending on amplitude of reflux. IMPRESSION: Varicosities and insufficien cy in the bilateral lower extremities. Please see the findings for a detailed r eport. Manisha Mead M.D. IMSylvie US PROCEDURES documented in this encounter Visit Diagnoses Diagnosis Varicose Vein Lower Extremity Bilateral - Primary Screening Examination Skin Cancer Varicose Vein Lower Extremity Bilateral Varicose Vein Lower Extremity Bilateral documented in this encounter Care Teams Celery Wrapper Relationship Specialty Start Date End Date Elsewhere, Pcp PCP - General Internal Medicine 07/03/17 documented as of this encounter
--- OUTSIDE RECORDS SUMMARY | 2022-07-30 19:57 | XMS_ITS | Encounter Summary ---
:1945 Author Organization [facility] Address [address] [place] [id number] Care Team Providers Name Role Phone Elsewhere, Pcp Primary Care Provider Unavailable Reason for Visit Outpatient (Routine) - Closed Specialty Diagnoses / Procedures Referred By Contact Refer red To Contact Vascular Medicine Diagnoses Varicose Vein Lower Extremity Bilateral Varicose Vein Lower Extremity With Pain Bilateral Michele Mello [place] M.D. [address] [place] [phone] Referral ID Status Reason Start Date Expiration Date Visits Requ ested Visits Authorized [id number] Closed 12/01/2018 12/01/2019 1 1 Encounter Details Date Type Department Care Team Description 02/16/2019 Comprehensive Visit Department of Juanita Vaz Varic ose Vein Lower Extremity With Pain Bilateral (Primary Dx); Vascular Medicine R, CLERICAL SUPERVISOR, C.N.P . Varicose Vein Lower Extremity Bilateral in [address] [place] [phone] [place], [place] [phone] (Work) [phone] Social History Tobacco Use Types Packs/Day Years [...] or slept in a fci (including now)? Sex Assigned at Date Recorded Female 07/26/2020 9:06 PM CDT documented as of this encounter Last Filed Vital Signs Vital Sign Reading Time Taken Comments Blood Pressure 116/64 02/16/2019 8:56 AM CDT Pulse 67 02/16/2019 8:56 AM CDT Temperature - - Respiratory Rate - - Oxygen Saturation - - Inhaled Oxygen Concentration - - Weight 67.4 kg (148 lb 9.4 oz) 02/16/2019 8:56 AM CDT Height 169 cm (5' 6.54) 02/16/2019 8:56 AM CDT Body Mass Index 23.6 02/16/2019 8:56 AM CDT documented in this encounter Consult Notes Juanita Vaz, CLERICAL SUPERVISOR, C.N.P. - 02/16/2019 9:00 AM CDT REFERRAL SOURCE Michele Mello M.D. [address] [place] [phone] SUBJECTIVE CHIEF COMPLAINT / REASON FOR VISIT Varicose veins with pain bilateral HISTORY OF PRESENT ILLNESS Ms. Sheikh is a 73 y.o. female that I am seeing today for evaluation of varicose veins with pain [...] of controlled hypertension, hemorrhoids, and hyperlipidemia. She remain very active and is trim and fit. The following portions of the patient's history were reviewed and updated as appropriate: allergies,current medications, family history, medical history, social history, surgical history, psychiatric history, substance abuse history, problem list, labs, diagnostics tests. I reviewed the pertinent clinical notes in the electronic health record. REVIEW OF SYSTEMS Constitutional: Positive for night sweats. Skin: Positive for change in mole or skin spot. Gastrointestinal: Positive for constipation. Musculoskeletal: Positive for muscle pain/stiffness. Neurological: Positive for slurred speech. The following systems were negative: Eyes, ENT, CV, Respiratory, , Hematologic, Psych 14 systems reviewed. Pertinent positives and pertinent negatives are documented in the history of present illness. OBJECTIVE VITALS BP 116/64 (BP Location: Left arm, Patient Position: Sitting) Pulse 67 Ht 169 cm Wt 67.4 kg BMI 23.60 kg/m?? PHYSICAL EXAMINATION General: Pleasant, female , [...] evidence of clubbing or cyanosis. Edema trace biaterally DIAGNOSTIC REVIEW All labs and diagnostic studies were reviewed. ASSESSMENT / PLAN #1 Varicose Vein Lower Extremity Bilateral #2 Varicose Vein Lower Extremity With Pain Bilateral Ms. Sheikh returns for evaluation of her known venous disease following utilization of compressionstockings for the past 3 months. She has not noted any significant improvement of her bilateral lower extremity discomfort/edema. This continues to affect her quality of life and she overall feels quite uncomfortable. She has quite a few prominent varicosities in the setting severe incompetence of her left GSV withinthe calf, and severe incompetence within the right GSV of the calf. She also has moderate incompetence of her small saphenous vein. She does have evidence of an anterior accessory vein remnant which also is incompetent and gives rise to varicosities of the left lower extremity. This varicosity perhapsdrains to a pelvic vein. I discussed utilization of sclerotherapy as an option for treatment of her varicosities. Dr. Mello was reluctant to proceed with laser ablation given her body habitus/skinny legs and concern for tissue damage. However, he did advise that if sclerotherapy did not meet her needs that he could consider c yanoacrylate for treatment of her incompetent saphenous veins. I did review the risks involved with sclerotherapy inclusive of DVT/pulmonary embolism, staining/streaking, allergic reaction to the medication, proliferation of further veins, and potential for wound formation. She was able to verbalize understanding at this juncture would like to proceed. I did provide her with a no other prescription for thigh-high compression stockings of 20-30 mm Hg compression.She states that she would prefer to initiate her sclerotherapy in the fall. She will call to schedule at her convenience. Juanita Vaz APRN, C.N.P. documented in this encounter Plan of Treatment Upcoming Encounters Date Type Specialty Care Team Description 09/08/2022 Procedure visit Aesthetic Juanita Weeks, Surgery CLAUDIA, C.N.P. [address] [place] [phone] (Charlotte bentley) 09/08/2022 Comprehensive Visit Lucero Cervantes, Surgery MJayda, Ph.D. [address] [place] [phone] (Charlotte bentley) documented as of this encounter Results Sclerotherapy (11/07/2019 3:00 PM VALIDATION SCIENTIST) Narrative MMODAL - 11/07/2019 3:00 PM VALIDATION SCIENTIST Juanita Vaz, CLERICAL SUPERVISOR, C.N.P. ? 11/07/2019 ??4:52 PM Proceduralist: ??JOSHUA Informed consent obtained: ??Yes [...] of legs were obtained after consent using [facility] approved and s CarbonFlow device and loaded to patient's medical record. [...] Number of injections: ??Approximately 50 -75 injections [place] used: 30 gauge Complications: ??No apparent complicatio [...] were answered to apparent satisfaction. Juanita Vaz APRN CAnaliN.PAnali PROCEDURE/MINOR SURGICAL ORDERABLES Performing Organization Address City/State/ZIP Code Phon e Number MMODAL MMODAL NA Sclerotherapy (09/11/2019 1:00 PM VALIDATION SCIENTIST) Narrative MMODAL - 09/11/2019 1:00 PM VALIDATION SCIENTIST Juanita Vaz APRN C.N.P. ? 09/11/2019 ??6:19 PM Proceduralist: ??JOSHUA [...] of legs were obtained after consent using [facility] approved and s ecure device and loaded [...] lower extremity sclerotherapy performed by myself as wel l as Ms Brigitte Alvarez. Preparation of legs: Agent used: ??Isopr opyl ETOH was used to cleanse the legs Agent used: ??Polidocanol 0.1% injecting a total of 22 cc's to bilateral lower extremity varicosities Number of injections: ??Approximately 50 -75 injections [place] used: 30 gauge Complications: ??No apparent complicatio [...] Phon e Number MMODAL MMODAL NA Sclerotherapy (07/06/2019 7:45 AM CDT) Narrative MMODAL - 07/06/2019 7:45 AM CDT Juanita Vaz APRN, C.N.P. ? 07/06/2019 12:50 PM Proceduralist: ??JOSHUA Informed consent obtained: ??Yes [...] of legs were obtained after consent using [facility] approved and s CarbonFlow device and loaded to patient's medical record. [...] 30 -50 injections to bilateral lower extremities [place] used: 30 gauge Complications: ??No apparent complicatio [...] - Primary Varicose Vein Lower Extremity Bilateral Varicose Vein Lower Extremity With Pain Bilateral Varicose Vein Lower Extremity With Pain Bilateral Varicose Vein Lower Extremity With Pain Bilateral documented in this encounter Care Teams Media Relations Associate Relationship Specialty Start Date End Date Elsewhere, Pcp PCP - General Internal Medicine 07/03/17 documented as of this encounter
--- OUTSIDE RECORDS SUMMARY | 2022-07-30 19:57 | XMS_ITS | Encounter Summary ---
:1945 Author Organization [facility] Address [address] [place] [address] Care Team Providers Name Role Phone Elsewhere, Pcp Primary Care Provider Unavailable Encounter Details Date Type Department Care Team Description 02/16/2019 Diagnostic Department of Julia Ruano Au.D. [address] [place] [phone] Tinnitus Bilateral (Primary Dx); Otorhinolaryngology in Cheryl Shukla Au.D. [address] [place] [phone] Loss Hearing Sensorineural Bilateral [place], [place] [address] [place] [phone] Social History Tobacco Use Types Packs/Day [...] or slept in a fdc (including now)? Sex Assigned at Date Recorded Female 07/26/2020 9:06 PM CDT documented as of this encounter Procedure Notes Cheryl Shukla Au.D. - 02/16/2019 1:50 PM CDT SUBJECTIVE CHIEF COMPLAINT / REASON FOR VISIT ?? Tinnitus bilaterally HISTORY OF PRESENT COMPLAINT Ms. Yamileth Sheikh is a 73 year old woman who presents for audiological evaluation. She reports a 20+year history of bilateral tinnitus. In the left ear, this sounds like an airplane approaching from the distance. In the right ear, it is like a refrigerator running. Ms. Sheikh reports the tinnitus does not disturb her sleep, but she is interested in learning more about sound therapy for management.Ms. Sheikh denies vertigo, otalgia, otorrhea, aural fullness, prior ear infection, and prior ear surgery. 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 OBJECTIVE See Audiological Evaluation Form ASSESSMENT/PLAN ?? Right Ear: Mild low-frequency sensorineural hearing loss 250-1000 Hz rising to normal hearing sensitivity (mild loss also noted at 6000 Hz). ?? Left Ear: Moderate to severe low-frequency sensorineural hearing loss rising to normal hearing sensitivity. ?? Word recognition ability was assessed using recorded isophoneme stimuli, 20- word lists, and judged to be excellent in each ear (100% words correct). ?? Tympanometry indicates normal middle ear pressure and compliance bilaterally. ?? Acoustic reflex testing was deferred as an MRI study was obtained earlier today. CARE PLAN ?? The pathophysiology of tinnitus was discussed, including possible triggers for perceived tinnitus, (i.e. stress, fatigue, loud sound exposure, chemicals/medications). Ms. Sheikh was advised regarding medical, audiological, and psychological management options for tinnitus. Medical management may include a review of medications and addressing insomnia, if appropriate. Audiological management includes creation of a sound-rich environment, masking options, hearing aid use, and tinnitus retraining therapy. Psychological management may include stress reduction, meditation, mindfulness, and management of anxiety or depression if indicated. Ms. Sheikh is most interested in music therapy, hearing aid use, or tinnitus retraining therapy. ?? Recommended the use of hearing protective devices in noisy environments. ?? Re-evaluate in three years, sooner if change in hearing, tinnitus and/or balance status suspected. documented in this encounter Plan of Treatment Upcoming Encounters Date Type Specialty Care Team Description 09/08/2022 Procedure visit Aesthetic Medicine and Juanita Vaz, Surgery ROLLED HAM LACER, C.N.P. [address] [place] [phone] ( rk) 09/08/2022 Comprehensive Visit Aesthetic Medicine and Lucero Pritchard, Andreia Ma, Ph.D. [address] [place] [phone] ( rk) documented as of this encounter Procedures Procedure Name Priority Date/Time Associated Diagnosis Comme nts AUDIOLOGY EVALUATION Routine 02/16/2019 12:00 AM CDT Tinnitus Bilateral documented in this encounter Results Audiology evaluation (02/16/2019 12:00 AM CDT) Specimen (Source) Anatomical Location Collection Method / Collectio n Time Received Time / Laterality Volume 02/16/2019 Narrative This result has an attachment that is no t available. Manisha Mead M.D. AUDIOLOGY SERVICES ORDERABLE S Performing Organization Address City/State/ZIP Code Phon e Number [facility] documented in this encounter Visit Diagnoses Diagnosis Tinnitus Bilateral - Primary Loss Hearing Sensorineural Bilateral documented in this encounter Care Teams Delivery Crew Worker Relationship Specialty Start Date End Date Elsewhere, Pcp PCP - General Internal Medicine 07/03/17 documented as of this encounter
--- OUTSIDE RECORDS SUMMARY | 2022-07-30 19:57 | XMS_ITS | Encounter Summary ---
:1945 Author Organization [facility] Address [address] [place] [address] Care Team Providers Name Role Phone Elsewhere, Pcp Primary Care Provider Unavailable Reason for Visit Appointment Request (Routine) - Closed Specialty Diagnoses / Procedures Referred By Contact Refer red To Contact Cardiovascular Disease Referral ID Status Reason Start Date Expiration Date Visits Requ ested Visits Authorized [id number] Closed 05/19/2018 05/19/2019 1 1 Encounter Details Date Type Department Care Team Description 06/22/2018 Comprehensive Visit Department of Natividad Scott M.D. [address] [place] [phone] Abnormal Echocardiogram (Primary Dx); Cardiovascular Leobardo Pruitt M.D. [address] [place] [phone] Hypertension Essential Primary; Medicine in [place], Hyper lipidemia [place] [address] [place] [phone] Social History Tobacco Use Types Packs/Day Years [...] More than 4 times per year 01/28/2021 amish services? Do you belong to any clubs [...] Sign Reading Time Taken Comments Blood Pressure 127/72 06/22/2018 2:37 PM CDT . Pulse 59 06/22/2018 2:37 PM CDT Temperature - - Respiratory Rate - - Oxygen Saturation - - Inhaled Oxygen Concentration - - Weight 72.2 kg (159 lb 2.8 oz) 06/22/2018 2:37 PM CDT Height 168.2 cm (5' 6.22) 06/22/2018 2:37 PM CDT Body Mass Index 25.52 06/22/2018 2:37 PM CDT documented in this encounter Consult Notes Leobardo Pruitt M.D. - 06/22/2018 2:30 PM CDT A 72-year-old woman self-referred to the Cardiology Clinic for evaluation of atherosclerosis, valvular heart disease, and hypertension. History of present illness: Yamileth Sheikh has no personal history of clinical heart disease. This past summer she was feeling fatigued. She presented to the [facility] for evaluation and underwent some cardiac testing. Her vascular elasticity were was reported to be mildly reduced. Her blood pressure and lipids were elevated. An echocardiogram reported normal left ventricular size and function with ejection fraction 60 65%, mild tricuspid insufficiency, and trace aortic regurgitation and mitral regurgitation. Her hypertension initially was treated with perindapril but was changed to anArb due to dry cough and atorvastatin was initiated. She has lost 21 lb in weight since that evaluati on. She self-referred to [facility]. Due to concern about valvular heart disease her records were initially reviewed by Dr. Johnston from the valve clinic. Based upon her echocardiogram reports she was instead referred to the General Cardiology Clinic. She does not have any specific cardiac symptoms. She is a nonsmoker. Her father at age 78 and had congestive heart failure. Her mother lived to the age of91 and had hypertension. Ms. Sheikh's fatigue has persisted. Her routine is to exercise 1st thing in the morning. She performed a 3 mi walk and then notes generalized fatigue by noon. Current Outpatient Prescriptions: ??? aspirin-calcium carbonate 81 mg-300 mg calcium(777 mg) tablet, Take 81 mg by mouth daily., Disp:, Rfl: ??? atorvastatin (LIPITOR) 10 mg tablet, Take 10 mg by mouth daily., Disp: , Rfl: ??? azelastine (ASTELIN) 137 mcg/spray (0.1 %) nasal spray, Administer 1-2 sprays into affected nostril(s) 2 (two) times a day., Disp: , Rfl: ??? B complex-vitamins (BALANCE B-50) tablet, Take 1 tablet by mouth 2 (two) times a day., Disp: , Rfl: ??? calcium citrate (CALCITRATE) 950 mg (200 mg calcium) tablet, Take 6 tablets by mouth daily. 1000mg ashlyn/ 400 D2/ 500 Magn, Disp: , Rfl: ??? cholecalciferol (VITAMIN D3) 1,000 Unit tablet, Take 1 tablet by mouth 2 (two) times a day., Disp: , Rfl: ??? ciclopirox (LOPROX) 0.77 % cream, Apply topically 2 (two) times a day., Disp: , Rfl: ??? CINNAMON [id number]-[id number] ORAL, Take 2 tablets by mouth daily., Disp: , Rfl: ??? co-enzyme Q-10 (COQ-10) 100 mg capsule, Take 100 mg by mouth daily., Disp: , Rfl: ??? estradiol (ESTRACE) 0.1 mg/g (0.01%) vaginal cream, Insert 1 application into the vagina as directed. 3 times a week, Disp: , Rfl: ??? estradiol (ESTRING) 2 mg (7.5 mcg /24 hour) vaginal ring, Insert 1 application into the vagina as directed. Every 3 months, Disp: , Rfl: ??? garlic tablet, Take 1 tablet by mouth 3 (three) times a day., Disp: , Rfl: ??? tricia root (TRICIA EXTRACT ORAL), Take 1 capsule by mouth 3 (three) times a day., Disp: , Rfl: ??? glucosamine/msm/csa/ashlyn/dos633 ([id number] ORAL), Take 1 tablet by mouth 2 (two) times a day., Disp: , Rfl: ??? hydrocortisone (CORTIFOAM) 10 % (80 mg) rectal foam, Insert 1 application into the rectum 2 (two) times a day., Disp: , Rfl: ??? ipratropium HFA (ATROVENT HFA) 17 mcg/actuation inhaler, Administer 2 sprays into affected nostril(s) daily., Disp: , Rfl: ??? irbesartan (AVAPRO) 150 mg tablet, Take 150 mg by mouth daily., Disp: , Rfl: ??? L-LYSINE ORAL, Take 1 tablet by mouth 2 (two) times a day., Disp: , Rfl: ??? MAGNESIUM CITRATE ORAL, Take 4 tablets by mouth. 800 mg, Disp: , Rfl: ??? mv-mn/folic acid/calcium/vit K (ONE-A-DAY WOMEN'S 50 PLUS ORAL), Take 1 tablet by mouth daily., Disp: , Rfl: ??? omega-3 fatty acids/fish oil (OMEGA 3 FISH OIL ORAL), Take 3 capsules by mouth 2 (two) times a day., Disp: , Rfl: ??? turmeric, bulk, 100 % powder, daily. 300 mg, Disp: , Rfl: ??? UNABLE TO FIND, [place] 200mg, Disp: , Rfl: ??? valacyclovir HCl (VALTREX ORAL), Take by mouth as needed., Disp: , Rfl: Additional past history, family history, social history, review of systems reviewed with the patient. This information is summarized elsewhere in the medical record. Physical examination: General: Very pleasant 72-year-old woman no acute distress. Vital signs: Height 168 cm. Weight 72.2 kg. Blood pressure 127/72 mmHg. Pulse 59 regular. Lymph nodes: No cervical adenopathy. Thyroid: No thyromegaly. Lungs: Clear to auscultation. Vessels: JVP flat. Carotid arteries normal. Heart: Precordium not palpated. First and sec heart sounds normal. No extra heart sounds or murmur. Abdomen: No palpable mass or organomegaly. Extremities: Varicosities. Trace bilateral ankle edema. Pedal pulses intact. The feet are somewhat cool to touch. Laboratory data: The electrocardiogram is normal. The outside echocardiogram results are noted in the HPI. There are a few lipid profiles noted in the outside records with 1 profile from this past summer total cholesterol 243, HDL 64, LDL 141, triglycerides 193. Assessment: 1. Essentially normal echocardiogram with no significant valvular heart disease. 2. Hypertension. 3. Hyperlipidemia. 4. KAILYN-inhibitor cough. I reassured Ms. Sheikh that she does not have any evidence for significant valve disease. She doesnot have a murmur on examination. Her echocardiogram reports trace to mild mitral regurgitation which are essentially normal findings. There is no evidence for structural heart disease. Her 10 year risk for myocardial infarction or stroke using the ASCVD calculator and her lipid profile noted above is14.1%. Based upon this value she should remain on atorvastatin. Her lipids likely have improved since this past summer reflecting both her successful weight loss and use of atorvastatin. I encouraged her to continue her healthy diet and exercise program. Her blood pressure is at goal on her current regimen. No additional cardiovascular evaluation is indicated at this time. This evaluation included the review of 200 pages of outside records. documented in this encounter Plan of Treatment Upcoming Encounters Date Type Specialty Care Team Description 09/08/2022 Procedure visit Aesthetic Medicine and Juanita Vaz, Surgery ELEVATOR ERECTOR HELPER, C.N.P. [address] [place] [address] (Charlotte bentley) 09/08/2022 Comprehensive Visit Aesthetic Medicine Lucero Mckeon Surgery M.D., Ph.D. [address] [place] [phone] (Charlotte bentley) documented as of this encounter Visit Diagnoses Diagnosis Abnormal Echocardiogram - Primary Hypertension Essential Primary Hyperlipidemia documented in this encounter Care Teams Diesel Electrician Relationship Specialty Start Date End Date Elsewhere, Pcp PCP - General Internal Medicine 07/03/17 documented as of this encounter
--- OUTSIDE RECORDS SUMMARY | 2022-07-30 19:57 | XMS_ITS | Encounter Summary ---
:1945 Author Organization [facility] Address [address] [place] [id number] Care Team Providers Name Role Phone Elsewhere, Pcp Primary Care Provider Unavailable Encounter Details Date Type Department Care Team Description 12/01/2018 Hospital Encounter Department of Manisha Mead Varicose Vein Lower Radiology, Marino Kaur M.D. Extremity Bilateral Building, in [address] [place] [address] [place] [phone] [place], [place] [phone] (Work) [phone] Social History Tobacco Use Types Packs/Day Years [...] or relatives? How often do you attend yarsanism or More than 4 times per year 01/28/2021 temple services? Do you belong to any clubs or Yes 01/28/2021 organizations such as yarsanism groups, unions, fraternal or athletic groups, or [...] by mouth 0 mg tablet every morning. amoxicillin (AMOXIL) 500 Take 2 capsules by 0 05/17/2020 mg capsule mouth as needed. B complex-vitamins Take 1 tablet by 0 05/24/2015 02/16/2019 (BALANCE B-50) tablet mouth 2 (two) times a day. calcium carb,gluc/mag Take 4 capsules by 0 201402/16/2019 ox,gluc (CALCIUM mouth. MAGNESIUM ORAL) ciclopirox (LOPROX) 0.77 Apply topically 2 0 01/0306/13/2019 % cream (two) times a day. ciclopirox (LOPROX) 0.77 Apply topically. 0 01/2402/16/2019 % cream omega-3 fatty acids/fish Take 2 capsules by 0 06/13/2019 oil (OMEGA 3 FISH OIL mouth daily. ORAL) turmeric (CURCUMIN MISC) Take 1 tablet by 0 02/16/2019 mouth daily. valacyclovir HCl (VALTREX Take by mouth as 0 02/16/2019 ORAL) needed. vitamin E 100 unit Take 400 Units by 0 02/16/2019 capsule mouth daily. documented as of this encounter Plan of Treatment Upcoming Encounters Date Type Specialty Care Team Description 09/08/2022 Procedure visit Aesthetic Medicine and Juanita Vaz, Surgery DISPLAY SCREEN FABRICATOR, C.N.P. [address] [place] [phone] (Charlotte bentley) 09/08/2022 Comprehensive Visit Aesthetic Medicine Lucero Mckeon, Surgery M.D., Ph.D. [address] [place] [phone] (Charlotte bentley) documented as of this encounter Procedures Procedure Name Priority Date/Time Associated Comments Diagnosis US LOWER EXTREMITY RAD - Routine 12/01/2018 9:32 Varicose Vein Resu lts for VENOUS INSUFFICIENCY (most inpatients AM SUPERVISOR LIQUID YEAST Lower Extremity this procedure BILATERAL and all Bilateral are in the outpatients) results section. documented in this encounter Results US Lower Extremity Venous Insufficiency Bilateral (12/01/2018 9:32 AM SUPERVISOR LIQUID YEAST) Anatomical Region Laterality Modality Lower Extremity, Ultrasound RST LOS, Ultrasound ARZ LOS, Santosh ateral Ultrasound Ultrasound FLA LOS Specimen (Source) Anatomical Collection Method Collection Time Re ceived Time Location / / Volume Laterality 12/01/2018 9:32 AM SUPERVISOR LIQUID YEAST Impressions 12/01/2018 10:13 AM SUPERVISOR LIQUID YEAST IMPRESSION: ??Varicosities and insufficiency in the bilateral lower extremities. Please see the findings for a detailed r eport. Narrative 12/01/2018 10:13 AM SUPERVISOR LIQUID YEAST EXAM: ??US LOWER EXTREMITY VENOUS INSUFFICIENCY BILATERAL Exam performed with color and spectral D oppler analysis. COMPARISON: ??None. FINDINGS: RIGHT: The deep veins are patent without thromb us. 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 The SSV is moderately incompetent with v aricosities in the upper calf. A large (0.4 cm) incompetent deep property disposal manager pos terior to the knee gives rise [...] calf. A large (0.4 cm) incompetent deep property disposal manager pos terior to the knee gives rise [...] findings for a detailed r eport. Manisha WARD US PROCEDURES documented in this encounter Visit Diagnoses Diagnosis Varicose Vein Lower Extremity Bilateral documented in this encounter Care Teams Irrigation Laborer Relationship Specialty Start Date End Date Elsewhere, Pcp PCP - General Internal Medicine 07/03/17 documented as of this encounter
--- OUTSIDE RECORDS SUMMARY | 2022-07-30 19:57 | XMS_ITS | Encounter Summary ---
:1945 Author Organization [facility] Address [address] [place] [address] Care Team Providers Name Role Phone Elsewhere, Pcp Primary Care Provider Unavailable Reason for Referral Outpatient (Routine) - Closed Specialty Diagnoses / Procedures Referred By Contact Refer red To Contact Otorhinolaryngology Diagnoses Tinnitus Bilateral Manisha Mead M.D. [facility] [address] [place] [address] Referral ID Status Reason Start Date Expiration Date Visits V isits Requested Authorized [id number] Closed Specialty 12/02/2018 12/02/2019 1 1 Services Required EYANCER Reason for Visit Reason Comments Return Visit Appointment Request (Routine) - Closed Specialty Diagnoses / Procedures Referred By Contact Refer red To Contact General Internal Medicine Referral ID Status Reason Start Date Expiration Date Visits Requ ested Visits Authorized [id number] Closed 09/12/2018 09/12/2019 1 1 Encounter Details Date Type Department Care Team Description 12/02/2018 Office Visit Division of Manisha Maldonado Tinnitus Bilateral (Primary Dx); Internal Medicine in Ej Kaur Hypertension Essential Primary; [place], [place] [address] [facility] Varicose Vein Lower Extremity With Pain Bilateral; [address] [place], [place] Osteopenia; [place] [address] Hyperlipidemia [phone] Social History Tobacco Use Types Packs/Day Years [...] or relatives? How often do you attend jewish or More than 4 times per year 01/28/2021 latter day services? Do you belong to any clubs or Yes 01/28/2021 organizations such as jewish groups, unions, fraternal or athletic groups, or [...] documented as of this encounter Progress Notes Manisha Mead M.D. - 12/02/2018 10:30 AM CST CHIEF COMPLAINT / REASON FOR VISIT Yamileth Sheikh is a 73 y.o. female who presents to discuss tests and consultations. IMPRESSION/REPORT/PLAN #1 Tinnitus Bilateral We discussed the steps for undergoing further tinnitus evaluation and possible treatment approaches for tinnitus. She will need to have ENT examination and audiogram as well as imaging of the internal auditory canals with MRI. I indicated that sometimes these services may not be fully covered by insurance and that she should inquire with her insurance about coverage in any personal responsibility. #2 Hypertension Essential Primary Blood pressure is adequately controlled on current medications which she will continue. #3 Varicose Vein Lower Extremity With Pain Bilateral She was seen in the vascular Medicine Clinic and recommendations were to treat conservatively with compression garments. Concern was expressed over radiofrequency ablation indicating that that could cause some tissue injury or nerve injury since her legs are quite then. She will continue to use compression garments indefinitely to try to manage this. #4 Osteopenia She had previously received instructions regarding management of the osteopenia which she will continue. #5 Hyperlipidemia We discussed treatment of her hyperlipidemia. For now I think it is burk to continue the statin therapy. However she has changed lifestyle considerably and has lost a lot of weight by changing her dietand exercise. She feels that she is following a Mediterranean diet fairly closely. I offered that given these significant changes in lifestyle we could have her discontinue statin therapy at some pointin the future and reassess lipids after 3-4 months off of treatment. If her calculated 10 year cardiovascular risk was considerably lower than previously calculated, we could discontinue statin therapyat that point. I reviewed and discussed all these impressions with the patient and answered questions. She will proceed with additional evaluation for tinnitus as above. I personally spent over half of a total 20 minutes in counseling and discussion with the patient andcoordination of care as described above. EYANCER documented in this encounter Plan of Treatment Upcoming Encounters Date Type Specialty Care Team Description 09/08/2022 Procedure visit Aesthetic Medicine Juanita Samson, Surgery HIM TECH, C.N.P. [address] [place] [phone] (Charlotte bentley) 09/08/2022 Comprehensive Visit Aesthetic Lucero Arita Surgery Francesca, Ph.D. [address] [place] [phone] (Charlotte bentley) Scheduled Referrals Name Type Priority Associated Order Schedule Diagnoses Otorhinolaryngology - Outpatient Routine Tinnitus Expect ed: General non-surgical Referral Bilateral 019 consult (clinic) (Approximat e), Expires: 12/02/2021 documented as of this encounter Results MR Brain without and with IV Contrast (02/16/2019 12:25 PM CDT) Anatomical Region Laterality Modality Head, Brain, Neuroradiology RST LOS, Neuroradiology ARZ N/A Magnetic Resonance LOS, Neuroradiology FLA LOS Specimen (Source) Anatomical Collection Method [...] air cells are clear. Procedure Note Juvencio Gregg M.D. - 02/16/2019Form atting of this note [...] vestibular s chwannoma/acoustic neuroma. Manisha Mead M.D. IMSylvie MRI PROCEDURES documented in this encounter Visit Diagnoses Diagnosis Tinnitus Bilateral - Primary Hypertension Essential Primary Varicose Vein Lower Extremity With Pain Bilateral Osteopenia Hyperlipidemia Tinnitus Bilateral documented in this encounter Care Teams Work Measurement Engineer Relationship Specialty Start Date End Date Elsewhere, Pcp PCP - General Internal Medicine 07/03/17 documented as of this encounter
--- OUTSIDE RECORDS SUMMARY | 2022-07-30 19:57 | XMS_ITS | Encounter Summary ---
:1945 Author Organization [facility] Address [address] [place] [address] Care Team Providers Name Role Phone Elsewhere, Pcp Primary Care Provider Unavailable Reason for Visit Reason Onset Date Comments Pre-visit Testing Orders 06/16/2018 Encounter Details Date Type Department Care Team Description 06/16/2018 Clinical Department of [facility], Pre-visit Test ing Communication Cardiovascular Ej Busby. Orders Medicine in [place], [address] [place] [address] [place] [phone] Social History Tobacco Use Types Packs/Day Years [...] or relatives? How often do you attend druze or More than 4 times per year 01/28/2021 sabianist services? Do you belong to any clubs or Yes 01/28/2021 organizations such as druze groups, unions, fraternal or athletic groups, or [...] or slept in a longterm (including now)? Sex Assigned at Date Recorded Female 07/26/2020 9:06 PM CDT documented as of this encounter Plan of Treatment Upcoming Encounters Date Type Specialty Care Team Description 09/08/2022 Procedure visit Aesthetic Medicine and Juanita Vaz, Surgery TOOL AND DIE MAKER, C.N.P. [address] [place] [phone] (Wo rk) 09/08/2022 Comprehensive Visit Aesthetic Medicine and Lucero Pritchard, Surgery M.DAnali, Ph.D. [address] [place] [place] [phone] (Wo rk) documented as of this encounter Results Thyroid Function [place] (06/22/2018 10:37 AM CDT) athologist Signature TSH, Sensitive 0.7 0.3 - 4.2 06/22/2018 [facility] mIU/L 11:49 AM CDT [facility] Specimen Anatomical Collection Method Collection Time Receive d Time (Source) Location / / Volume Laterality Blood (Blood, 06/22/2018 10:37 06/22/2018 Venous) AM CDT 10:59 AM CDT Qi Scott M.D. LAB BLOOD ADD-ON Performing Organization Address City/State/ZIP Code Phon e Number [facility] - 200 [place], [place] [address] [facility] (ABNORMAL) CBC without Differential (06/22/2018 10:37 AM CDT) [facility] gist Method Time Signature Hemoglobin 14.4 11.6 - 06/22/2018 [facility] 15.0 g/dL 11:09 AM CDT [facility] Hematocrit 43.2 35.5 - 06/22/2018 [facility] 44.9 % 11:09 AM CDT [facility] Erythrocytes 4.71 3.92 - 06/22/2018 [facility] 5.13 11:09 AM CDT LABORATORIES - x10(12)/L [facility] MCV 91.7 78.2 - 06/22/2018 [facility] 97.9 fL 11:09 AM CDT [facility] RBC Distrib 13.1 12.2 - 06/22/2018 [facility] Width 16.1 % 11:09 AM CDT LABORATORIES - [facility] Platelet Count 153 (L) 157 - 371 06/22/2018 [facility] x10(9)/L 11:09 AM CDT [facility] - [facility] Leukocytes 5.9 3.4 - 9.6 06/22/2018 [facility] x10(9)/L 11:09 AM CDT LABORATORIES - [facility] Specimen Anatomical Collection Method Collection Time Receive d Time (Source) Location / / Volume Laterality Blood (Blood, 06/22/2018 10:37 06/22/2018 Venous) AM CDT 10:59 AM CDT Qi Scott M.D. LAB BLOOD ADD-ON Performing Organization Address City/[facility] Code Phon e Number [facility]ATORIES - [address] Creatinine with Estimated GFR (06/22/2018 10:37 AM CDT) Analysis Performed At Patho logist Time Signature Creatinine 0.76 0.59 - 06/22/2018 [facility] 1.04 mg/dL 11:49 AM CDT LABORATORIES - [facility] eGFR-Non 79 >=60 06/22/2018 [facility] Black/ mL/min/BSA 11:49 AM CDT LABORATORIES [facility] Comment: ----ADDITIONAL INFORMATION---- Estimated GFR calculated using the 2009 CKD_EPI creatinine equation. eGFR-Black/ >90 >=60 mL/min/BSA 06/22/2018 11:[address] [facility] CDT [facility]ATORIES [facility] Comment: ----ADDITIONAL INFORMATION---- Estimated GFR calculated using the 2009 CKD_EPI creatinine equation. Specimen Anatomical Collection Method Collection Time Receive d Time (Source) Location / / Volume Laterality Blood (Blood, 06/22/2018 10:37 06/22/2018 Venous) AM CDT 10:59 AM CDT Qi Scott M.D. LAB BLOOD ADD-ON Performing Organization Address City/[facility] Code Phon e Number [facility]IES - 200 [place] [phone] [facility] Potassium (06/22/2018 10:37 AM CDT) P athologist Signature Potassium, S 4.8 3.6 - 5.2 06/22/2018 [facility] mmol/L 11:49 AM CDT [facility] Specimen Anatomical Collection Method Collection Time Receive d Time (Source) Location / / Volume Laterality Blood (Blood, 06/22/2018 10:37 06/22/2018 Venous) AM CDT 10:59 AM CDT Qi Scott M.D. LAB BLOOD ADD-ON Performing Organization Address City/[facility]/ZIP Code Phon e Number [facility]IES - [address] [place] [phone] [facility] Sodium (06/22/2018 10:37 AM CDT) P athologist Signature Sodium, S 141 135 - 145 06/22/2018 [facility] mmol/L 11:49 AM CDT [facility] Specimen Anatomical Collection Method Collection Time Receive d Time (Source) Location / / Volume Laterality Blood (Blood, 06/22/2018 10:37 06/22/2018 Venous) AM CDT 10:59 AM CDT Qi Scott M.D. LAB BLOOD ADD-ON Performing Organization Address [facility]/ZIP Code Phon e Number [facility]IES - 200 [place] [phone] [facility] ECG 12 Lead (06/21/2018 11:21 AM CDT) P athologist Signature Ventricular Rate 57 BPM MUSE ECG/Min NC Interval 170 ms MUSE QRSD Interval 100 ms MUSE QT Interval 418 ms MUSE QTC Interval 406 ms MUSE P [place] 43 degrees MUSE R [place] 12 degrees MUSE T Wave [place] 51 degrees MUSE Specimen Anatomical Collection Method Collection Time Receive d Time (Source) Location / / Volume Laterality 06/21/2018 11:21 06/21/2018 AM CDT 11:34 AM CDT Impressions MUSE - 06/21/2018 11:34 AM CDT Sinus bradycardia Otherwise normal ECG When compared with ECG of 25-JUN-2016 15 :32, No significant change was found Narrative This result has an attachment that is no t available. Qi Scott M.D. ECG ORDERABLES Performing Organization Address [facility]/ZIP Code Phon e Number MUSE MUSE NA DX Chest AP or PA and Lateral [...] left b reast. Chest otherwise negative. Qi Scott M.D. [facility] BERE JORGENSEN documented in this encounter Visit Diagnoses Diagnosis Regurgitation Mitral - Primary Regurgitation Mitral documented in this encounter Care Teams Departmental Shipping Clerk Relationship Specialty Start Date End Date Elsewhere, Pcp PCP - General Internal Medicine 07/03/17 documented as of this encounter
--- OUTSIDE RECORDS SUMMARY | 2022-07-30 19:57 | XMS_ITS | Encounter Summary ---
:1945 Author Organization [facility] Address [address] [place] [address] Care Team Providers Name Role Phone Elsewhere, Pcp Primary Care Provider Unavailable Encounter Details Date Type Department Care Team Description 12/02/2018 Orders Only Division of General Manisha Mead Tinn itus Bilateral Internal Medicine in M.D. (Primary Dx) [place], [place] [address] [facility] [address] [place] [phone] Social History Tobacco Use Types Packs/Day Years [...] visit Aesthetic Medicine and Juanita Vaz, Surgery BELL CLERK, C.N.P. [address] [place] [address] (Wo rk) 09/08/2022 Comprehensive Visit Aesthetic Medicine and Lucero Pritchard, Surgery M.Norma, Ph.D. [address] [place] [address] (Wo rk) documented as of this encounter Results Audiology evaluation (02/16/2019 12:00 [...] Visit Diagnoses Diagnosis Tinnitus Bilateral - Primary documented in this encounter Care Teams Composition Stone Applicator Relationship Specialty Start Date End Date Elsewhere, Pcp PCP - General Internal Medicine 07/03/17 documented as of this encounter
--- OUTSIDE RECORDS SUMMARY | 2022-07-30 19:57 | XMS_ITS | Encounter Summary ---
:1945 Author Organization [facility] Address [address] [place] [address] Care Team Providers Name Role Phone Elsewhere, Pcp Primary Care Provider Unavailable Encounter Details Date Type Department Care Team Description 12/01/2018 Hospital Encounter Department of Manisha Mead Varicose Vein Lower Vascular Medicine in Ej Kaur Extremity Bilateral [place], [place] [address] [facility] [address] [place] [phone] Social History Tobacco Use Types Packs/Day Years [...] or relatives? How often do you attend orthodoxy or More than 4 times per year 01/28/2021 church services? Do you belong to any clubs or Yes 01/28/2021 organizations such as orthodoxy groups, unions, fraternal or athletic groups, or [...] slept in a long term (including now)? Sex Assigned at Date Recorded [...] Aesthetic Medicine and Juanita Vaz, Surgery TILE PROFESSIONAL, C.N.P. [address] [place] [phone] (Charlotte bentley) 09/08/2022 Comprehensive Visit Aesthetic Medicine and Lucero Pritchard, Surgery MJayda, Ph.D. [address] [place] [phone] (Charlotte bentley) documented as of this encounter Procedures Procedure Name Priority Date/Time Associated Comments Diagnosis VENOUS LOWER Routine 12/01/2018 10:30 Varicose Vein Lower Resu lts for this EXTREMITY - AM CHURCH HISTORY TEACHER Extremity Bilateral procedur e are in HEMODYNAMIC STUDY the result s section. documented in this encounter Results Venous Lower Extremity - Hemodynamic Study (12/01/2018 10:30 AM CHURCH HISTORY TEACHER) Anatomical Region Laterality Modality Other Specimen (Source) Anatomical Collection Method Collection Time Re ceived Time Location / / Volume Laterality 12/01/2018 10:09 AM CHURCH HISTORY TEACHER Narrative 12/01/2018 10:09 AM CHURCH HISTORY TEACHER Right: OUTFLOW PLETHYSMOGRAPHY: ? Patent venous outflow. [...] comparison. Manisha Mead M.D. CV VASCULAR PROCEDURES documented in this encounter Visit Diagnoses Diagnosis Varicose Vein Lower Extremity Bilateral documented in this encounter Care Teams Yarn Preparation Supervisor Relationship Specialty Start Date End Date Elsewhere, Pcp PCP - General Internal Medicine 07/03/17 documented as of this encounter
--- OUTSIDE RECORDS SUMMARY | 2022-07-30 19:57 | XMS_ITS | Encounter Summary ---
:1945 Author Organization [facility] Address [address] [place] [id number] Care Team Providers Name Role Phone Elsewhere, Pcp Primary Care Provider Unavailable Reason for Visit Reason Comments Other New Bone Outpatient (Routine) - Closed Specialty Diagnoses / Referred By Contact Referred To Contact Procedures Reproductive Diagnoses Osteopenia Christine Gray, [facility] Endocrinology and PRINTING WORKER SUPERVISOR, C.N.P., Infertility / D.N.P. Endocrinology [address] [place] [phone] Referral ID Status Reason Start Date Expiration Date Visits Requ ested Visits Authorized [id number] Closed 06/03/2018 06/03/2019 1 1 Encounter Details Date Type Department Care Team Description 08/29/2018 Comprehensive Visit Division of Endocrinology Merrill Tubsb M.D. [address] [place] [phone] Osteopenia in [facility] Phyllis Senior M.D. [address] [place] [phone] Social History Tobacco Use Types Packs/Day [...] Reading Time Taken Comments Blood Pressure 136/80 08/29/2018 1:02 PM CANE FLUME WATCHER Pulse 65 08/29/2018 1:02 PM CANE FLUME WATCHER Temperature - - Respiratory Rate - - Oxygen Saturation - - Inhaled Oxygen Concentration - - Weight 68.3 kg (150 lb 9.2 oz) 08/29/2018 1:02 PM CANE FLUME WATCHER Height 167.7 cm (5' 6.02) 08/29/2018 1:02 PM CANE FLUME WATCHER Body Mass Index 24.29 08/29/2018 1:02 PM CANE FLUME WATCHER documented in this encounter H&P Notes Phyllis Galicia M.D. - 08/29/2018 1:30 PM CST [facility] Endocrinology, Diabetes, Metabolism and Nutrition Bone/Osteoporosis Clinic Date of Visit: 08/29/2018 Supervising professional employer consultant: Dr. Harris Chief Complaint: Osteopenia History of Present Illness Yamileth Sheikh is a 73 y.o. female who presents for evaluation of osteopenia. Briefly, she has had decreased T-scores on DEXA scan as far back as 2007 (-1.3 at L1/2) based on [facility] review. Notably, she has had a right hip replacement, so femoral neck evaluations are alldone based on her left hip. Most recent DEXA scan was performed outside, resulting in femoral neck T-score of - 1.1, hip -1.9, lumbar -1.1 and distal 1/3 radius of -2.0. Over the past ten years, she hashad a 1.9% decrease in lumbar, 9.5% decrease in hip, and 24.3% decrease in radial bone mineral density. FRAX calculations reveal a 9.5% risk of major fracture and 1.2% risk of hip fracture in the next 10 years. Additional history is significant for the following: Menstrual history: menarche age 12, menopause age 49, cycles every 28 days Hormone replacement therapy: Oral/systemic estrogen until about age 56, since then only topical estrogen formulations Past fracture history: none Past osteoporosis therapy: 1200 mg Calcium daily, 1000 IU Vit D3 daily Pertinent skeletal ROS includes: Steroid history: None Smoking history: Never Alcohol use: 1-2 glasses of wine a week Dental health and oral surgery: 2 implants (5 and 10 years ago), no lose teeth GERD or dysphagia: Has never had heartburn or dysphagia Kidney stone history: Never Family history of osteoporosis: Mother - atraumatic vertebral fractures x3; Sister - traumatic hip fracture Dietary calcium and supplement intake: Calcium diet/supplement intake: States goal of 1200 mg Calcium daily (usually 2- 3 servings of dairy products, which she supplements with Calcium citrate 200mg tablets and multivitamin containing 500mg calcium carbonate) Vitamin D intake: 1000 IU daily Loss of height: None Back pain: None Activity and weight bearing exercise: Walks 3-4 miles a day in addition to frequent yardwork, has started going to a local gym to perform balance exercises as instructed by a physical therapist; notably this walking regimen was started in February 2018 and she is planning on continuing for both bone healthand to maintain 20lb weight loss Fall risk factors identified: No lose rugs in house, primary risk is when she works outside when snowing/icy The following portions of the patient's history were also reviewed and updated as appropriate: allergies, current medications, family history, medical history, social history, surgical history and problem list. Current Outpatient Prescriptions Medication Sig Dispense Refill ??? B complex-vitamins (BALANCE B-50) tablet Take 1 tablet by mouth 2 (two) times a day. ??? calcium citrate (CALCITRATE) 950 mg (200 mg calcium) tablet Take 6 tablets by mouth daily. 1000 mg ashlyn/ 400 D2/ 500 Magn ??? cholecalciferol (VITAMIN D3) 1,000 Unit tablet Take 1 tablet by mouth 2 (two) times a day. ??? ciclopirox (LOPROX) 0.77 % cream Apply topically 2 (two) times a day. ??? ciclopirox (LOPROX) 0.77 % cream Apply 1 application topically 2 (two) times a day. Gently massage into affected areas and surrounding skin ??? CINNAMON PSBC-RULWLYWR-UXD ORAL Take 2 tablets by mouth daily. ??? co-enzyme Q-10 (COQ-10) 100 mg capsule Take 100 mg by mouth daily. ??? estradiol (ESTRACE) 0.1 mg/g (0.01%) vaginal cream Insert 1 application into the vagina as directed. 3 times a week ??? estradiol (ESTRING) 2 mg (7.5 mcg /24 hour) vaginal ring Insert 1 application into the vagina asdirected. Every 3 months ??? garlic tablet Take 1 tablet by mouth 3 (three) times a day. ??? tricia root (TRICIA EXTRACT ORAL) Take 1 capsule by mouth 3 (three) times a day. ??? glucosamine/msm/csa/ashlyn/cww757 (PNXCVHNCSY-AQUQZ-SMC-ASHLYN-115HC ORAL) Take 1 tablet by mouth 2 (two) times a day. ??? hydrocortisone (CORTIFOAM) 10 % (80 mg) rectal foam Insert 1 application into the rectum as needed. PRN ??? L-LYSINE ORAL Take 1 tablet by mouth 2 (two) times a day. ??? MAGNESIUM CITRATE ORAL Take 4 tablets by mouth. 800 mg ??? mv-mn/folic acid/calcium/vit K (ONE-A-DAY WOMEN'S 50 PLUS ORAL) Take 1 tablet by mouth daily. ??? omega-3 fatty acids/fish oil (OMEGA 3 FISH OIL ORAL) Take 3 capsules by mouth 2 (two) times a day. ??? rosuvastatin (CRESTOR) 5 mg tablet Take 5 mg by mouth daily. ??? turmeric, bulk, 100 % powder daily. 300 mg ??? UNABLE TO FIND 150 each. Med Name: irbesartan ??? valacyclovir HCl (VALTREX ORAL) Take by mouth as needed. ??? vitamin E 100 unit capsule Take 100 Units by mouth daily. ??? aspirin-calcium carbonate 81 mg-300 mg calcium(777 mg) tablet Take 81 mg by mouth daily. No current facility-administered medications for this visit. Social History Substance Use Topics ??? Smoking status: Never Smoker ??? Smokeless tobacco: Never Used ??? Alcohol use Yes 2 Glasses of wine per week Past Medical History: Diagnosis Date ??? Cataract 2016 Not ready to be removed ??? Hyperlipidemia Taking Atorvastatin ??? Hypertension NOS Taking Valsartan ??? Osteopenia ??? Renal Disease Possible because of high creatinine. Dr. Rich ASENCIO Past Surgical History: Procedure Laterality Date ??? BREAST SURGERY Reduction 2010 Biopsies 1994, 1997, 2016 ??? SECTION 10/28/1978 ??? DILATATION AND CURETTAGE [...] Francois M.D.; Location: [facility] OR Physical Examination General: Alert and oriented. No acute distress. HEENT: Conjunctiva normal. No oral lesions. Teeth in good repair. Neck: No lymphadenopathy. Thyroid: Without goiter or nodularity. Vascular: Without carotid bruit. Lungs: Clear to auscultation. Heart: Regular rate and rhythm without click or murmur. Abdomen: Nontender and nondistended. Bowel sounds active. Without palpable hepatosplenomegaly. Spine: Spine is upright posture. Spine is nontender to palpation and percussion. Musculoskeletal: Muscle mass appropriate for age and gender. Hand chip applying machine tender normal. Neuro: Balance normal. Able to walk on toes and stand on one foot without imbalance. Deep tendon reflexes equal and symmetric. Skin: Non cushingoid in appearance. No worrisome lesions. Psych: Normal mood, affect and mental status. Impression/Report/Plan Ms. Sheikh does not currently meet FRAX thresholds for bisphosphonate treatment, with risks of 9.5% for major fractures and 1.2% for hip fractures in the next ten years. However, given her strong family history of osteoporotic fractures, it is reasonable to consider medications, given her strong family history of osteoporotic fractures. A long discussion was had about the risk and benefits of medication based treatments, and it was ultimately thought that she would best be served by continuing lifestyle management. This includes continuation of vitamin D3 and calcium supplementation, as well as regular weight-bearing and balance training activities. I reviewed the available laboratory, radiographic and other test findings pertinent to this visit and discussed these results with the patient. #1 Osteopenia Plan is as follows: - Continue current Vit D3 and Calcium supplementation with goal of 1000 IU and 1200mg daily respectively - Continue consistent weight bearing activities, interspersed with balance training and light weightlifting. Ensure adequate back support during weight lifting. - Repeat bone mineral density scan in 1 year - Follow-up with Dr. Harris in 1 year, at which time further discussion about initiating bisphosphonate therapy can be considered. Phyllis Galicia, PGY1 3:07 PM, 08/29/18 FLUME WATCHER documented in this encounter Consult Notes Merrill Harris M.D. - 08/29/2018 1:30 PM CST SUBJECTIVE Supervisory note for Dr. Galicia REASON FOR CONSULT Osteopenia. ASSESSMENT / PLAN #1 Osteopenia Ms. Sheikh has osteopenia by bone density criteria (left total hip T-score - 1.9), and had a 9.5% decrease in her hip density during the past 10 years. The spine density readings are also in the osteopenia range, but may be artifactually increased by the degenerative changes that are present. Risk f actors for osteoporosis include Ms. Sheikh's postmenopausal status and family history of osteoporosis (mother and sister). We discussed Ms. Sheikh's fracture risk, and decided to pursue a conservative course of management. Ms. Sheikh should maintain a calcium intake of 1200 mg and a vitamin D intake of 1000 to 2000 units a day, continue her exercise program, and have her bone density rechecked and the management of her osteopenia reviewed in [address] Job ID: [id number] FLUME WATCHER documented in this encounter Plan of Treatment Upcoming Encounters Date Type Specialty Care Team Description 09/08/2022 Procedure visit Aesthetic Medicine and Juanita Vaz, Surgery PRINTING WORKER SUPERVISOR, C.N.P. [address] [place] [phone] (Charlotte bentley) 09/08/2022 Comprehensive Visit Aesthetic Medicine and Lucero Pritchard, Surgery Francesca, Ph.D. [address] [place] [phone] (Charlotte bentley) documented as of this encounter Visit Diagnoses Diagnosis Osteopenia documented in this encounter Care Teams Eap Counselor Relationship Specialty Start Date End Date Elsewhere, Pcp PCP - General Internal Medicine 07/03/17 documented as of this encounter
--- OUTSIDE RECORDS SUMMARY | 2022-07-30 19:58 | XMS_ITS | Encounter Summary ---
:1945 Author Organization [facility] Address [address] [place] [address] Care Team Providers Name Role Phone Elsewhere, Pcp Primary Care Provider Unavailable Encounter Details Date Type Department Care Team Description 05/06/2018 Anesthesia Event Outpatient Procedure Gabino Cardenas A PRN, Center in [facility] [address] [facility] [address] [place] [phone] Anesthesia Record Procedure Summary Procedure Name Responsible Anesthesia Start Anesthesia Stop Time Anesthesiologist Time Operative Gabino Cardenas APRN, CRNA 05/06/18 1009 1136 HYSTEROSCOPY. Events Date Time Event Comment 05/06/2018 0941 1009 An Start Machine/Equipmen t Checked Infection Precautions Foll owed Procedure/Site Verified NPO Sta tus Verified Supine Standard ASA Mon itors Applied 1010 In Room 1013 An Induction 1021 An Intubation 1021 Turnover to Proceduralist 1033 Proc Start 1122 Proc Fin 1126 Turnover to ANE Staff 1129 Airway Removal Criteria Met 1129 Extubation/Airway Removed 1131 an stop data 1132 Out of Room 1136 An End I completed my h andoff to the receiving staff during [facility] we 1. Identified the patient 2. Ident ified the responsible provider 3. Revi ewed the pertinent medical history 4. Discussed the surgical course 5. Review ed intra-op anesthesia management and i ssues during anesthesia 6. Set expectati ons for post-procedure period 7. Allowe d opportunity for questions and ac knowledgement of understanding. Name Total ondansetron 4 mg/2 mL injection 4 mg fentaNYL 50 mcg/mL IV injection 150 mcg ketamine 10 mg/mL injection 20 mg droperidol 2.5 mg/mL injection 0.625 mg dexamethasone 4 mg/mL injection 8 mg Lactated Ringers Free Drip 500 mL Agents No agents on file. Blood No blood administrations on file. Lines, Drains, and Airways Type Details Placement Removal Peripheral IV Placement Date: 05/06/18 1007 by 05/06/18 1311 b y 05/06/18; Placement Luzma Ramirez Eiken, Al isha L, Time: 1007; Catheter R.N. B.S.N., R.N . Size: 20 G; Orientation: Right; Location: Wrist; Site Prep: Alcohol; Removal Date: 05/06/18; Removal Time: 1311 Supraglottic Airway Placement Date: 05/06/18 1021 by John, 1129 by 05/06/18; Placement Krishna Juarez Sheri L, APRN, Time: 1021 (created via ENGINE INSPECTOR procedure documentation); Mask Ventilation: Easy mask; Removal Date: 05/06/18; Removal Time: 1129 documented in this encounter Social History Tobacco [...] or relatives? How often do you attend scientologist or More than 4 times per year 01/28/2021 sabianism services? Do you belong to any clubs or Yes 01/28/2021 organizations such as scientologist groups, unions, fraternal or athletic groups, or [...] encounter OR Notes Anesthesia Postprocedure Evaluation - Gabino Cardenas APRN, CRNA - 05/06/2018 11:38 AM CDT Patient: Yamileth Sheikh Procedure Summary Date: 05/06/18 Room / Location: [place] [address] / [facility] in [place], [place] Anesthesia Start: 1009 Anesthesia Stop: 1136 Procedures: Operative HYSTEROSCOPY. (N/A ) DILATATION, CURETTAGE. (N/A ) LYSIS ADHESIONS (N/A ) Diagnosis: Leiomyoma (Fibroid) Uterus (Leiomyoma (Fibroid) Uterus [D25.9].) Surgeon: Kaleigh Francois M.D. Responsible Provider: Anesthesia Type: general ASA Status: 2 Anesthesia Type: general Last vitals BP 132/80 (05/06/18 1010) Temp 36.7 ??C (05/06/18 1010) Pulse 66 (05/06/18 1010) Resp 16 (05/06/18 1010) SpO2 98 % (05/06/18 1010) Anesthesia Post Evaluation 05/06/2018 11:38 AM Patient Disposition: dismissal Cardiovascular status: hemodynamics (HR & BP) acceptable Respiratory status: patent airway with spontaneous effort Temperature: normothermic Oxygen requirements: room air Level of consciousness: awake Pain score: pain adequately controlled and/or at baseline Post Op nausea/vomiting: none Hydration status: euvolemic Anesthesia Procedure Notes - Gabino Cardenas APRN, CRNA - 05/06/2018 10:32 AM CDT Associated Order(s): AIRWAY MANAGEMENT Airway Date/Time: 05/06/2018 10:21 AM Patient location during procedure: OR / Procedure Area Performed by: SUNI PEREZ Authorized by: GABINO CARDENAS Pre procedure details Pre evaluation for airway management: procedure Urgency: elective Preop assessment of probable difficulty: no difficulty anticipated Sedation level: anesthetized Preoxygenation: bag valve mask Procedure details Mask difficulty assessment: easy mask Final airway type: supraglottic airway Laryngeal Manipulation: no Supraglottic device: LMA unique Supraglottic device size: 4 Adult device size: 4 Number of attempt to successful placement: 2 Airway confirmation: bilateral breath sounds, positive ETCO2 and bilateral chest rise Other previous techniques attempted: none Post procedure details Procedure outcome: successful Airway event: no complications Anesthesia Preprocedure Evaluation - Adi Morrissey M.D. - 05/06/2018 9:39 AM CDT Anesthesia Pre-Evaluation Pertinent components of the patient's history including current problem list, medical history, surgical history, family history, social history, medications and allergies were reviewed and updated as appropriate. The patient was examined and the Pre-op diagnosis, planned procedure, and H&P were reviewed and remain unchanged. PROBLEM LIST Relevant Problems No relevant active problems OBJECTIVE PHYSICAL EXAMINATION Airway (HEENT) Mallampati: I TM Distance: >3 FB Neck ROM: Full Cardiovascular Rhythm: Regular Rate: Normal Cardiovascular Assessment: Normal Functional Capacity: >4 METS Pulmonary Pulmonary Assessment: Clear Neurological Normal Dental Normal General / Constitutional Normal ASSESSMENT / PLAN ANESTHESIA PLAN ASA: 2 Anesthesia Plan: general Patient seen and allergies reviewed; anesthesia plan and risks discussed directly with patient / legal guardian, or through an payroll professional; patient evaluated and approved for anesthesia / sedation. Use of blood products discussed with patient who consented to blood products. documented in this encounter Plan of Treatment Upcoming Encounters Date Type Specialty Care Team Description 09/08/2022 Procedure visit Aesthetic Medicine and Juanita Vaz, Surgery CLAUDIA, C.N.P. [address] [place] [phone] (Charlotte bentley) 09/08/2022 Comprehensive Visit Aesthetic Medicine and Lucero Pritchard Surgery M.D., Ph.D. [address] [place] [phone] (Charlotte bentley) documented as of this encounter Procedures Procedure Name Priority Date/Time Associated Diagnosis Comme nts LDA ANE Routine 05/06/2018 10:32 AM Results for this NON-SURGICAL AIRWAY CDT procedur e are in the results section. documented in this encounter Results LDA ANE NON-SURGICAL AIRWAY (05/06/2018 10:32 AM CDT) Narrative Gabino Cardenas APRN, CRNA - 05/06/2018 1 0:32 AM CDT Gabino Cardenas APRN, CRNA ? 05/06/2018 10:33 AM Airway Date/Time: 05/06/2018 10:21 AM Patient location during procedure: OR / Procedure Area Performed by: SUNI PEREZ Authorized by: GABINO CARDENAS Pre procedure details ?? Pre evaluation for airway management : procedure ?? Urgency: elective ?? Preop assessment of probable difficu lty: no difficulty anticipated ?? Sedation level: anesthetized ?? Preoxygenation: bag valve mask Procedure details ??Mask difficulty assessment: easy mask ?? Final airway type: supraglottic airw ay Laryngeal Manipulation: no ? Supraglottic device: LMA unique ? Supraglottic device size: 4 ? Adult device size: 4 ?? Number of attempt to successful plac ement: 2 ?? Airway confirmation: bilateral breat h sounds, positive ETCO2 and bilateral chest rise ?? Other previous techniques attempted: none Post procedure details ?? Procedure outcome: successful ? Airway event: no complications Procedure Note Gabino Cardenas APRN, CRNA - 05/06/2018 1 0:32 AM CDT Airway Date/Time: 05/06/2018 10:21 AM Patient location during procedure: OR / Procedure Area Performed by: SUNI PEREZ Authorized by: GABINO CARDENAS Pre procedure details Pre evaluation for airway management: p rocedure Urgency: elective Preop assessment of probable difficulty : no difficulty anticipated Sedation level: anesthetized Preoxygenation: bag valve mask Procedure details Mask difficulty assessment: easy mask Final airway type: supraglottic airway Laryngeal Manipulation: no Supraglottic device: LMA unique Supraglottic device size: 4 Adult device size: 4 Number of attempt to successful placeme nt: 2 Airway confirmation: bilateral breath s ounds, positive ETCO2 and bilateral chest rise Other previous techniques attempted: no ne Post procedure details Procedure outcome: successful Airway event: no complications Gabino Cardenas APRN, CRNA ANESTHESIA ORDERABLES documented in this encounter Visit Diagnoses Not on filedocumented in this encounter Administered Medications Inactive Administered Medications - up to 3 most recent administrations Medication Order MAR Action Action Date Dose Rate Site dexamethasone injection (DECADRON) Given 05/06/2018 10:22 AM CDT 8 mg As needed, Starting on Wed05/06/18 at 1022, Anesthesia Intra-op droperidol injection (INAPSINE) Given 05/06/2018 10:29 AM CDT 0.625 mg intravenous, As needed, nausea, vomiting, Starting on Wed05/06/18 at 1029, Anesthesia Intra-op fentaNYL injection (SUBLIMAZE) Given 05/06/2018 11:21 AM CDT 50 mcg As needed, severe pain or score 7-10 of 10, Starting on Wed05/06/18 at 1027, Anesthesia Intra-op Given 05/06/2018 10:27 AM CDT 50 mcg Given 05/06/2018 10:13 AM CDT 50 mcg ketamine injection (KETALAR) Given 05/06/2018 10:29 AM CDT 20 mg As needed, Starting on Wed05/06/18 at 1029, Anesthesia Intra-op lactated ringers New Bag 05/06/2018 10:09 AM CDT intravenous, Continuous Infusion: Per Instructions PRN, Starting on Wed05/06/18 at 1009, Anesthesia Intra-op ondansetron (PF) injection (ZOFRAN) Given 05/06/2018 10:16 AM CDT 4 mg intravenous, As needed, nausea, vomiting, Starting on Wed05/06/18 at 1016, Anesthesia Intra-op documented in this encounter Care Teams Vice President Safety Relationship Specialty Start Date End Date Elsewhere, Pcp PCP - General Internal Medicine 07/03/17 documented as of this encounter
--- OUTSIDE RECORDS SUMMARY | 2022-07-30 19:58 | XMS_ITS | Encounter Summary ---
:[address] [facility] Address [address] [place] [address] Care Team Providers Name Role Phone Elsewhere, Pcp Primary Care Provider Unavailable Reason for Referral Outpatient (Routine) - Closed Specialty Diagnoses / Referred By Contact Referred To Contact Procedures Reproductive Diagnoses Osteopenia Christine Gray [facility] Endocrinology and CLAUDIA, C.N.P., Infertility / D.N.P. Endocrinology [address] [place] [phone] Referral ID Status Reason Start Date Expiration Date Visits Requ ested Visits Authorized [id number] Closed 06/03/2018 06/03/2019 1 1 Reason for Visit Reason Comments Preventive Visit Outpatient (Routine) - Closed Specialty Diagnoses / Procedures Referred By Contact Refer red To Contact Certified Nurse Diagnoses [facility] / Kaleigh Pulliam M.D. Preventive Medicine [address] [place] [phone] Referral ID Status Reason Start Date Expiration Date Visits Requ ested Visits Authorized [id number] Closed 05/24/2018 05/24/2019 1 1 Encounter Details Date Type Department Care Team Description 06/03/2018 Comprehensive Visit Section of Christine Gray Preventive (Primary Dx); Preventive, M, POLYSOMNOGRAPHER, Preventive Gyne cological Exam; Transportation and C.N.P., D.N.P . Osteopenia Occupational Medicine 200 [facility] [phone] 200 [facility] [phone] [place], [place] (Work) [phone] Social History Tobacco Use Types Packs/Day Years [...] Pressure - - Pulse - - Temperature 36.5 ??C (97.7 ??F) 06/03/2018 12:47 PM CDT Respiratory Rate - - Oxygen Saturation - - Inhaled Oxygen Concentration - - Weight 73.3 kg (161 lb 9.6 oz) 06/03/2018 12:47 PM CDT Height 168.3 cm (5' 6.26) 06/03/2018 12:47 PM CDT Body Mass Index 25.88 06/03/2018 12:47 PM CDT documented in this encounter Consult Notes Christine Gray APRN, C.N.P., D.N.P. - 06/03/2018 1:00 PM CDT SUBJECTIVE CHIEF COMPLAINT Comprehensive Preventive Services Evaluation. HPI Yamileth Sheikh is a 72 y.o. female who presents to the Preventive Services Clinic today for a comprehensive preventive health evaluation. Patient does have a primary care provider at home in [place], [place]. Past history significant for osteopenia, hypertension, hyperlipidemia, and uterine fibroidswith thickening of the endometrium and previous hysteroscopy procedures. Current preventive services history is as follows: Immunization history per EMR includes: There is no immunization history on file for this patient. Additional reported Immunization history includes: Tetanus: 06/2017 Shingles: Zoster vaccine 09/23/2009 and Shingrix 03/29/2018 (1st dose) Influenza: 06/2017 Pneumococcal: 11/27/2013 PPSV23 and 01/07/2015 PCV13 Hep B: She has received a 3 toe series completed in 2002 Hep A: She has completed the series in 2002 Hyperlipidemia screening: Patient does have a history of hyperlipidemia. She is currently on treatment with atorvastatin. Lipids were checked on 07/22/2016 and were suboptimal with An elevated cholesterol of 243, triglyceride 193, HDL 64, and LDL 141. She is following closely with the Cardiovascular Clinic near her home in [place]. Known early family history of CAD or sudden cardiac . Father from heart attack at age 78 and was being treated for CAD. Maternal grandfather from heart attack and paternal grandmother had heart disease. Maternal grandmother and mother had hypertension. Diabetes screening: Last fasting glucose for diabetes screening was completed on 03/25/2018 in normal at 94. No known history of diabetes or elevated glucose. She follows closely with primary care provider for recommended hyperglycemic screening. Hypertension screening: History of hypertension on treatment with valsartan Last blood pressure check was on 05/06/2018 with a BP: 109/85 Colorectal cancer screening: Has had screening via colonoscopy on 05/29/2015 and results were normal. Based on family history, she has been told she should get a colonoscopy every 5 years from her primary care provider. She wishes to remain on an every 5 years schedule. Denies any change in her stool, constipation, [...] years ago and has been evaluated in [facility] here at [place] for that concern. At that time patient was unsure if the bleeding had come from the anal area or vaginal tissue. Last Pap smear screening completed in March 2014. Screening was negative for intraepithelial lesion or malignancy with negative high-risk HPV testing, however it did have an inadequate endocervical/transformation zone component. Repeat screening was recommended in 3 years. She is due for Pap smear screening today. Patient has history of abnormal pap smears more than 10 years ago but follow up testing was all normal. There is no history of hysterectomy. There [...] age 69-70 and niece was diagnosed with uterine cancer in her 40's. Personal history of STD's is negative. Is not currently sexually active. No known FELICIA exposure. Denies vaginal discharge, itching, sores, lumps, or pain. Breast cancer screening: Last mammogram complete on 04/2018 and negative for malignancy. Reports previous breast biopsy history. In 1989, she had a biopsies in the upper outer quadrants of both breasts, and two years ago she had a guided needle biopsy on the left breast. All results were negative. She did have breast reduction surgery in [phone]. Denies any breast symptoms or changes. She does perform regular breast self-examinations and has not noticed any lumps, nipple discharge, retraction, or skin changes. She notes that she has fibrocystic dense breasts. Last mammogram completed at [facility] in 2015 showed a B breast density. No known family history of breast cancer. Osteoporosis screening: Patient has a history of osteopenia with her last BMD screening completed at [place] on 04/13/2018,please refer to outside records. Bone density scan completed at that time continued to show osteopenia. Patient states that she was told by the healthcare providers at this facility she should begin treatment with an oral bisphosphonate. Today, she is requesting a referral to [facility] EndocrinologyDepartment for a 2nd opinion as she is hesitant to start medication due to the known side effects. Patient is very active with weight-bearing activity and walks 3 miles every morning and 1-2 miles mostnights. She has a diet high in calcium [...] Weight/BMI: Current BMI Body mass index is 25.88 kg/m??. Fall risk/concerns: No history of falls or recent falls in the last year. Skin screening exams: Attends regular skin screening/dermatology exams. There is no history of skin cancer or melanoma. Noknown family history of skin cancer. Eye exams: Attends regular eye exams. Last eye exam completed this year. She does have cataracts and will be undergoing cataract surgery in July,. She does wear eye correction. REVIEW OF SYSTEMS: Per HPI as related to presenting complaint. PAST MEDICAL/SURGICAL HISTORY As per HPI or noncontributory to presenting complaint. SOCIAL HISTORY Tobacco: History Smoking Status ??? Never Smoker Smokeless Tobacco ??? Never Used Alcohol: History Alcohol Use ??? Yes ??? 2 Glasses of wine per week FAMILY HISTORY As per HPI or noncontributory to presenting complaint. OBJECTIVE Temp 36.5 ??C (Tympanic) Ht 168.3 cm Wt 73.3 kg BMI 25.88 kg/m?? PHYSICAL EXAM: Constitutional: She appears well-developed and well-nourished. Non-toxic appearance. No distress. Pulmonary/Chest: Right breast exhibits no inverted nipple, no mass, no nipple discharge, no skin change and no tenderness. Left breast exhibits no inverted nipple, no mass, no nipple discharge, no skinchange and no tenderness. Breasts are symmetrical. Left breast minimally larger than the right breast. Genitourinary: Vagina normal and uterus normal. Pelvic exam was performed with patient supine. Thereis no rash, tenderness or lesion on the right labia. There is no rash, tenderness or lesion on the left labia. Cervix exhibits no motion tenderness and no discharge. Right adnexum displays no mass and no tenderness. Left adnexum displays no mass and no tenderness. No erythema or tenderness in the vagina. No vaginal discharge found. Genitourinary Comments: Rectovaginal wall intact. Pap smear cultures taken. Lymphadenopathy: She has no axillary adenopathy. Right: No inguinal adenopathy present. Left: No inguinal adenopathy present. ASSESSMENT / PLAN #1 Comprehensive Preventive Services Counseling Base on the current data, the following action plan was formulated with patient: 1. Immunizations: Patient received her first Shingrix vaccine in March,. Second Shingrix vaccinewill be ordered today. All other immunizations up-to-date at this time. 2. Screening exam(s): Pap smear was taken and will be sent for cytology. Clinical breast exam completed with no abnormal findings. Patient is otherwise currently up-to-date on preventive health screenings. We will notify her of the results with management as indicated. #2 Preventive Services Exam #3 Satisfactory gynecologic exam Satisfactory examination completed today and reviewed with patient. Pap smear collected and sent forcytology. Patient will be notified via patient portal with results or by telephone if abnormalities are noted. #4 History of osteopenia Patient and I discussed at length her osteopenia and the importance of maintaining frequent weight-bearing activity, as well as improving posture, balance, and preventing falls. She was encouraged to continue a dietary intake high in calcium and taking her calcium supplements. Patient was told in April, by a provider at [facility] she should begin treatment with an oral bisphosphonate after her last bone density scan results which showed continued osteopenia. Patient would like to be seen by Endocrinology here at [facility] for further evaluation of her osteopenia and recommendations on starting bisphosphonate treatment. At this time, she is hesitant to begin this medication due to knownside effects. A courtesy consult will be placed. Patient was seen today in the Preventive Services Clinic. ORDERS: Screening: Pap smear screening Consultations: Endocrinology for evaluation of osteopenia Discussed but deferred: None EDUCATION: Reviewed screening [...] exams. --Annual mammograms. --Pap smear/cervical cancer screening was collected today. If cervical cytology and HPV testing are negative, based on history of greater than 10 year of negative screening you will no longer require future Pap smear testing. Pelvic examinations are recommended as pelvic symptoms warrant. --Blood pressure checks at least every year. --Lipid checks at least every year. --Diabetes screening with fasting glucose at least every 3 years. --Current BMI is 25.9. Continue with your excellent exercise program and weight loss goals.. --Colorectal cancer screening will be due in [...] expressed understanding of the content. Total Time: 60 minutes. Counseling Time: 45 minutes. documented in this encounter Plan of Treatment Upcoming Encounters Date Type Specialty Care Team Description 09/08/2022 Procedure visit Aesthetic Medicine and Juanita Vaz, Surgery CLAUDIA, C.N.P. [address] [place] [phone] (Wo rk) 09/08/2022 Comprehensive Visit Aesthetic Medicine Lucero Mckeon, Surgery MJayda, Ph.D. [address] [place] [address] [phone] ([place] rk) Scheduled Referrals Name Type Priority Associated Order Schedule Diagnoses Endocrinology - Outpatient Referral Routine Osteopenia Expec jimena: Osteoporosis / 06/03/2018 metabolic bone (Approximate) , disorders consult Expires: (clinic) 06/03/2021 documented as of this encounter Procedures Procedure Name Priority Date/Time Associated Diagnosis Comme nts THINPREP W/HPV Routine 06/03/2018 2:00 PM Preventive Results for this CO-TEST SCREEN CDT Gynecological Exam procedu re are in the results section. HPV WITH Routine 06/03/2018 2:00 PM Results f or this GENOTYPING, PCR, CDT procedure a re in THINPREP the results section. documented in this encounter Results Phosphorus Inorganic (06/22/2018 10:37 AM CDT) Analysis Performed At Patho logist Time Signature Phosphorus 3.8 2.5 - 4.5 06/22/2018 [facility] (Inorganic), S mg/dL 11:49 AM CDT LABORATORIES - [facility] Specimen Anatomical Collection Method Collection Time Receive d Time (Source) Location / / Volume Laterality Blood (Blood, 06/22/2018 10:37 06/22/2018 Venous) AM CDT 10:59 AM CDT Christine Gray APRN, C.N.P., D.N.P. LAB BLOOD ADD-ON Performing Organization Address City/State/ZIP Code Phon e Number [facility] - [address] [place], [place] [address] [facility] HPV with Genotyping, PCR, ThinPrep (06/03/2018 2:00 PM CDT) Patholo gist Method Time Signature Specimen CERVIX / 06/08/2018 [facility] Source ENDOCERVIX 2:52 PM CDT LABORATORIES - [facility] HPV High Risk Negative Negative 06/08/2018 [facility] type 16, PCR 2:52 PM CDT LABORATORIES - [facility] HPV High Risk Negative Negative 06/08/2018 [facility] type 18, PCR 2:52 PM CDT LABORATORIES - [facility] HPV other Negative Negative 06/08/2018 [facility] High Risk 2:52 PM CDT LABORATORIES - types, PCR [facility] Comment: The following Other High Risk HPV types were not detected: 31, 33, 35, 39, 45, 51, 52, 56, 58, 59, 66, and 68 This test was ordered in the context of a [facility] [employer] DIE MACHINE OPERATOR Cytology case; this result should be int erpreted within the context of the CYLINDER DIE MACHINE OPERATOR cytology report. Specimen Anatomical Collection Method Collection Time Receive d Time (Source) Location / / Volume Laterality Varies 06/03/2018 2:00 PM 8 6:30 CDT PM CDT Emerald Gandhi APRN.N.P., D.N.P. LAB MICROBIOLOGY - GENERAL ORDERABLES Performing Organization Address City/State/ZIP Code Phon e Number [facility] - [address] [place] [id number] [facility] ThinPrep w/HPV Co-Test Screen (06/03/2018 2:00 PM CDT) Component Value Ref Test Analysis Performed At [facility] Range Method Time Signature 06/08/2018 [facility] 3:18 PM LABORATORIES - [facility] Report EITAN Grimaldo (ASCP) 06/08/2018 [facility] electronically I verify that I have examined all relevant slides/ma terials 3:18 PM LABORATORIES - signed by for the specimen(s) and rendered or confirmed the diagnosi s. [facility] Gross Received specimen 06/08/2018 [facility] Description in a ThinPrep 3:18 PM LABORATORIES - vial. [facility] Pap Test Source Cervical/Endocerv 06/08/2018 [facility] ical 3:18 PM LABORATORIES - [facility] Clinical History GALLERY INTERN 06/08/2018 [facility] 3:18 PM LABORATORIES - T [facility] Menstrual 04/02/2014 06/08/2018 [facility] Status(LMP, PM, 3:18 PM LABORATORIES - ) [facility] Hormone None/Not known 06/08/2018 [facility] Therapy/Contrace 3:18 PM LABORATORIES - ptives CDT [facility] Interpretation Cervical/Endocervical ??(ThinPrep): 06/08/2018 [facility] Satisfactory for Evaluation 3:18 PM [place] B[facility]ATORIES - Negative for Intraepithelial Lesion or Malignancy CDT [facility] ??High Risk HPV testing results are NEGATIVE. CAMPUS See specific genotype results below. HPV with Genotyping, PCR, ThinPrep: ??HPV High Risk Type 16, PCR: ??NEGATIVE ??HPV High Risk Type 18, PCR: ??NEGATIVE ??HPV other High Risk types, PCR: ??NEGATIVE Other High Risk HPV types include: 31, 33, 35, 39, 45, 51, 52, 56, 58, 59, 66, and 68. Specimen Anatomical Collection Method Collection Time Receive d Time (Source) Location / / Volume Laterality Varies 06/03/2018 2:00 PM 8 6:30 (Cervix/Endocerv CDT PM CDT ix) Narrative This result has an attachment that is no t available. Christine Gray APRN, C.N.P., D.N.P. LAB PAP PATHDX OR DERABLES Performing Organization Address City/State/ZIP Code Phon e Number [facility] - [address] [place], [place] [address] [facility] documented in this encounter Visit Diagnoses Diagnosis Counseling Preventive - Primary Preventive Gynecological Exam Osteopenia documented in this encounter Care Teams Core Oven Tender Relationship Specialty Start Date End Date Elsewhere, Pcp PCP - General Internal Medicine 07/03/17 documented as of this encounter
--- OUTSIDE RECORDS SUMMARY | 2022-07-30 19:58 | XMS_ITS | Encounter Summary ---
:1945 Author Organization [facility] Address [address] [place] [address] Care Team Providers Name Role Phone Elsewhere, Pcp Primary Care Provider Unavailable Reason for Visit Reason Comments Patient Education Encounter Details Date Type Department Care Team Description 04/15/2018 Education Department of Patient Ángel Sidhu M.D. Elevated Creatinine Education in [facility] Leeann Conteh [address] [place] [phone] [place] [address] [place] [phone] Social History Tobacco Use Types Packs/Day [...] visit Aesthetic Medicine and Juanita Vaz, Surgery DIAMOND WHEEL MOLDER, C.N.P. [address] [place] [phone] (Wo rk) 09/08/2022 Comprehensive Visit Aesthetic Medicine and Lucero Pritchard, Surgery M.DAnali, Ph.D. [address] [place] [phone] (Wo rk) documented as of this encounter Visit Diagnoses Diagnosis Elevated Creatinine documented in this encounter Care Teams Manager Pulmonary Relationship Specialty Start Date End Date Elsewhere, Pcp PCP - General Internal Medicine 07/03/17 documented as of this encounter
--- OUTSIDE RECORDS SUMMARY | 2022-07-30 19:58 | XMS_ITS | Encounter Summary ---
:1945 Author Organization [facility] Address [address] [place] [address] Care Team Providers Name Role Phone Elsewhere, Pcp Primary Care Provider Unavailable Encounter Details Date Type Department Care Team Description 04/11/2018 Abstract DATA ABSTRACTION Provider, Historical Social History Tobacco Use Types Packs/Day Years Used Date Smoking Tobacco: Never Alcohol Habits Answer Date Recorded How often [...] More than 4 times per year 01/28/2021 catholic services? Do you belong to any clubs [...] visit Aesthetic Medicine and Juanita Vaz, Surgery CAR DRIVER, C.N.P. [address] [place] [phone] (Wo rk) 09/08/2022 Comprehensive Visit Aesthetic Medicine and Lucero Pritchard, Surgery Francesca, Ph.D. [address] [place] [phone] (Wo rk) documented as of this encounter Visit Diagnoses Not on filedocumented in this encounter Care Teams Supervisor Area Relationship Specialty Start Date End Date Elsewhere, Pcp PCP - General Internal Medicine 07/03/17 documented as of this encounter
--- OUTSIDE RECORDS SUMMARY | 2022-07-30 19:58 | XMS_ITS | Encounter Summary ---
:1945 Author Organization [facility] Address [address] [place] [address] Care Team Providers Name Role Phone Elsewhere, Pcp Primary Care Provider Unavailable Encounter Details Date Type Department Care Team Description 04/25/2018 Hospital Encounter Department of Ángel Sidhu jimena Creatinine; Radiology, Marino Perera M.D. Hypertensio n And Chronic Kidney Disease Stage 1 To 4 [facility] in [place], [place] [address] [place] [address] Social History Tobacco Use Types Packs/Day Years [...] More than 4 times per year 01/28/2021 alevism services? Do you belong to any clubs [...] or slept in a correction (including now)? Sex Assigned at Date Recorded [...] CINNAMON Take 2 tablets by 0 019 [id number] ORAL mouth daily. garlic tablet Take 1 tablet by 0 05/24/201511/30 mouth 3 (three) times a day. tricia root (TRICIA Take 1 capsule by 0 5 11/30/2018 EXTRACT ORAL) mouth 3 (three) times a day. glucosamine/msm/csa/ashlyn/h Take 1 tablet by 0 05/0511/30/2018 rb115 mouth 2 (two) times ([id number]-ASHLYN a day. -115HC ORAL) hydrocortisone Insert 1 [...] (OMEGA 3 FISH OIL mouth daily. ORAL) perindopril (ACEON) 2 mg Take 1 tablet by 0 06/2505/06/2018 tablet mouth every evening. turmeric, bulk, 100 % daily. 300 mg 0 11/30/2018 powder UNABLE TO FIND [place] 200mg 0 08/05 valacyclovir HCl (VALTREX Take by mouth as 0 02/16/2019 ORAL) needed. documented as of this encounter Plan of Treatment Upcoming Encounters Date Type Specialty Care Team Description 09/08/2022 Procedure visit Aesthetic Medicine and Juanita Vaz, Surgery HOMEMAKER COMPANION, C.N.P. [address] [place] [address] (Wo rk) 09/08/2022 Comprehensive Visit Aesthetic Medicine and [facility], Andreia Palacios M.D., Ph.D. [address] [place] [phone] (Wo rk) documented as of this encounter Procedures Procedure Name Priority Date/Time Associated Comments Diagnosis US KIDNEYS WITH RAD - Routine 04/25/2018 11:31 Elevated Results for this RENAL ARTERY (most inpatients AM CDT Creatinine procedure are in DOPPLER and all Hypertension And the results outpatients) Chronic Kidney section. Disease Stage 1 To 4 documented in this encounter Results US Kidneys with Renal Artery Doppler (04/25/2018 11:31 AM CDT) Anatomical Region Laterality Modality Abdomen, Renal, Ultrasound RST LOS N/A Ultra sound Specimen (Source) Anatomical Collection Method Collection Time Re ceived Time Location / / Volume Laterality 04/25/2018 5:49 PM CDT Impressions 04/25/2018 5:50 PM CDT IMPRESSION: Negative for renal artery stenosis. Narrative 04/25/2018 5:50 PM CDT EXAM: US KIDNEYS WITH RENAL ARTERY DOPPLER COMPARISON: None FINDINGS: Right kidney: Normal echogenicity and pa renchymal thickness. No hydronephrosis. Right renal artery: Negative for stenosi s; single vessel well seen. ?? Left kidney: Normal echogenicity and par enchymal thickness. No hydronephrosis. Left renal artery: Negative for stenosis ; single vessel well seen. ?? Right Renal Measurements: Right renal length: 10.9 cm Right segmental artery - upper pole RI: 0.69 Right segmental artery - lower pole RI: 0.64 Right renal artery origin PSV: 63 cm/s Right renal artery prox PSV: 75 cm/s Right renal artery mid PSV: 88 cm/s Right renal artery distal PSV: 52 cm/s Left Renal Measurements: Left renal length: 9.8 cm Left segmental artery - upper pole RI: 0 .69 Left segmental artery - lower pole RI: 0 .69 Left renal artery origin PSV: 50 cm/s Left renal artery prox PSV: 76 cm/s Left renal artery mid PSV: 90 cm/s Left renal artery distal PSV: 116 cm/s Aorta: Normal caliber. Aorta PSV: 42 cm/s Bladder: Normal. Procedure Note Lucho Maxwell M.D. - 04/25/2018Form atting of this note might be different from the original. EXAM: US KIDNEYS WITH RENAL ARTERY DOPPL ER COMPARISON: None FINDINGS: Right kidney: Normal echogenicity and pa renchymal thickness. No hydronephrosis. Right renal artery: Negative for stenosi s; single vessel well seen. Left kidney: Normal echogenicity and par enchymal thickness. No hydronephrosis. Left renal artery: Negative for stenosis ; single vessel well seen. Right Renal Measurements: Right renal length: 10.9 cm Right segmental artery - upper pole RI: 0.69 Right segmental artery - lower pole RI: 0.64 Right renal artery origin PSV: 63 cm/s Right renal artery prox PSV: 75 cm/s Right renal artery mid PSV: 88 cm/s Right renal artery distal PSV: 52 cm/s Left Renal Measurements: Left renal length: 9.8 cm Left segmental artery - upper pole RI: 0 .69 Left segmental artery - lower pole RI: 0 .69 Left renal artery origin PSV: 50 cm/s Left renal artery prox PSV: 76 cm/s Left renal artery mid PSV: 90 cm/s Left renal artery distal PSV: 116 cm/s Aorta: Normal caliber. Aorta PSV: 42 cm/s Bladder: Normal. IMPRESSION: Negative for renal artery st enosis. Ángel WARD US PROCEDURES documented in this encounter Visit Diagnoses Diagnosis Elevated Creatinine Hypertension And Chronic Kidney Disease Stage 1 To 4 documented in this encounter Care Teams Gre Tutor Relationship Specialty Start Date End Date Elsewhere, Pcp PCP - General Internal Medicine 07/03/17 documented as of this encounter
--- OUTSIDE RECORDS SUMMARY | 2022-07-30 19:58 | XMS_ITS | Encounter Summary ---
:1945 Author Organization [facility] Address [address] [place] [address] Care Team Providers Name Role Phone Elsewhere, Pcp Primary Care Provider Unavailable Encounter Details Date Type Department Care Team Description 04/15/2018 Hospital Encounter Department of Ángel Sidhu Creatinine Laboratory Medicine Francesca Perera and Pathology, [facility] in [place], [place] [address] [place] [address] Social History Tobacco Use Types Packs/Day Years [...] CINNAMON Take 2 tablets by 0 019 [id number] ORAL mouth daily. fluticasone propionate Inhale 1 Inhaler 2 0 05/2404/25/2018 (FLOVENT HFA INHL) (two) times a day. garlic tablet Take 1 tablet by 0 05/24/201511/30 mouth 3 (three) times a day. tricia root (TRICIA Take 1 capsule by 0 5 11/30/2018 EXTRACT ORAL) mouth 3 (three) times a day. glucosamine/msm/csa/ashlyn/h Take 1 tablet by 0 05/0511/30/2018 rb115 mouth 2 (two) times ([id number]-ASHLYN a day. -115HC ORAL) hydrocortisone Insert 1 application 0 03/16/2014 11/30/2018 (CORTIFOAM) 10 % (80 mg) into the rectum as rectal foam needed. PRN ipratropium HFA (ATROVENT Administer 2 sprays 0 0 06/11/2016 08/29/2018 HFA) 17 mcg/actuation into affected inhaler nostril(s) daily. MAGNESIUM CITRATE ORAL Take 4 tablets by 0 201411/30/2018 mouth. 800 mg multivitamin tablet Take 1 tablet by 0 05/24/2015 04/25/2018 mouth daily. mv-mn/folic Take 1 tablet by 0 08/03/2009 019 acid/calcium/vit K mouth daily. (ONE-A-DAY WOMEN'S 50 PLUS ORAL) omega-3 fatty acids/fish Take 2 capsules by 0 06/13/2019 oil (OMEGA 3 FISH OIL mouth daily. ORAL) perindopril (ACEON) 2 mg Take 1 tablet by 0 06/2505/06/2018 tablet mouth every evening. turmeric, bulk, 100 % daily. 300 mg 0 11/30/2018 powder UNABLE TO FIND [place] 200mg 0 08/05 valacyclovir HCl (VALTREX Take by mouth as 0 02/16/2019 ORAL) needed. valsartan (DIOVAN) 160 mg Take 160 mg by mouth 0 04/25/2018 tablet daily. documented as of this encounter Plan of Treatment Upcoming Encounters Date Type Specialty Care Team Description 09/08/2022 Procedure visit Aesthetic Medicine and Juanita Vaz, Surgery ORDINARY SEAMAN, CAnaliN.P. [address] [place] [phone] (Charlotte rk) 09/08/2022 Comprehensive Visit Aesthetic Medicine and Lucero Pritchard, Surgery MJayda, Ph.D. [address] [place] [phone] ([place]otte rk) documented as of this encounter Procedures Procedure Name Priority Date/Time Associated Diagnosis Comme nts CYSTATIN C WITH Routine 04/15/2018 12:58 PM Elevated Creatinin e Results for this EGFR CDT procedure are i n the results section. documented in this encounter Results Cystatin C with Estimated GFR (04/15/2018 12:58 PM CDT) athologist Signature eGFR by 79 >60 04/15/2018 [facility] Cystatin C mL/min/BSA 4:24 PM CDT [facility] Comment: ----ADDITIONAL INFORMATION---- Cystatin C-based eGFR may differ substan tially from creatinine-based eGFR in patients with a bnormal muscle mass or acutely changing renal function. ??Pl ease interpret together with relevant clinical features. Cystatin C, S 0.91 0.68 - 1.36 mg/L 04/15/2018 4:24 PM CDT [facility] PUS Specimen Anatomical Collection Method Collection Time Receive d Time (Source) Location / / Volume Laterality Blood (Blood, 04/15/2018 12:58 04/15/2018 1:53 Venous) PM CDT PM CDT Ánegl Sidhu M.D. LAB BLOOD ADD-ON Performing Organization Address City/State/ZIP Code Phon e Number [facility] - [address] [place], [place] [address] [facility] documented in this encounter Visit Diagnoses Diagnosis Elevated Creatinine documented in this encounter Care Teams Senior Courtroom Clerk Relationship Specialty Start Date End Date Elsewhere, Pcp PCP - General Internal Medicine 07/03/17 documented as of this encounter
--- OUTSIDE RECORDS SUMMARY | 2022-07-30 19:58 | XMS_ITS | Encounter Summary ---
:1945 Author Organization [facility] Address [address] [place] [address] Care Team Providers Name Role Phone Elsewhere, Pcp Primary Care Provider Unavailable Reason for Referral Outpatient (Routine) - Closed Specialty Diagnoses / Procedures Referred By Contact Refer red To Contact Obstetrics and Aranza Francois [facility] on Gynecology Kaleigh Pulliam M.D. [address] [place] [phone] Referral ID Status Reason Start Date Expiration Date Visits Requ ested Visits Authorized [id number] Closed 04/11/2018 04/11/2019 1 1 Scheduling Instructions With [facility] or ICG for fibroid follow up Reason for Visit Reason Onset Date Comments Telphone 04/04/2018 Encounter Details Date Type Department Care Team Description 04/04/2018 Clinical Communication Department of Dao Francois Obstetrics and Kaleigh Pulliam M.D. Gynecology in [address] [place] [address] [place] [phone] [place], [place] [phone] (Work) [phone] Social History Tobacco Use Types Packs/Day Years [...] More than 4 times per year 01/28/2021 orthodoxy services? Do you belong to any clubs [...] or slept in a half-way (including now)? Sex Assigned at Date Recorded Female 07/26/2020 9:06 PM CDT documented as of this encounter Miscellaneous Notes Telephone Encounter - Jena Menchaca - 04/11/2018 3:27 PM CDT Pt called back and has been scheduled. Telephone Encounter - Zainab Méndez - 04/11/2018 2:53 PM CDT Message left for patient to call back and schedule. Telephone Encounter - Kaleigh Francois M.D. - 04/05/2018 12:42 PM CDT Yes - we should get a 3D ultrasound to evaluate her uterus and return with me (or ICG saw her too I think). -skl Telephone Encounter - Taylor Harp RAnaliN. - 04/04/2018 4:45 PM CDT You saw her in 2016 and operated on her 06/26/16. Looks like last US was 2015, MRI 2010. Please advise on testing and future appt orders needed. Thanks Telephone Encounter - Rajwinder Retana - 04/04/2018 2:46 PM CDT Patient calling and wanting to set up an appointmentt to follow up on her fibroids. I have not scheduled yet, as I will possibly need an order. Patient is also wondering if she needs any imaging. Please advise and place orders, as needed. Thank you documented in this encounter Plan of Treatment Upcoming Encounters Date Type Specialty Care Team Description 09/08/2022 Procedure visit Aesthetic Medicine and Juanita Vaz, Surgery COATING MACHINE FEEDER, C.N.P. [address] [place] [phone] (Wo mc) 09/08/2022 Comprehensive Visit Aesthetic Medicine Lucero Mckeon, Surgery M.D., Ph.D. [address] [place] [phone] (Charlotte bentley) Scheduled Referrals Name Type Priority Associated Order Schedule Diagnoses Obstetrics and Outpatient Referral Routine Expect ed: Gynecology office 04/11/2018 visit (clinic) (Approximate) , Expires: 04/11/2021 documented as of this encounter Results US Pelvis Transvaginal and Transabdominal (04/15/2018 10:42 AM CDT) Anatomical Region Laterality Modality Pelvis, Ultrasound RST LOS N/A Ultrasound Specimen (Source) Anatomical Collection Method Collection Time Re ceived Time Location / / Volume Laterality 04/15/2018 10:50 AM CDT Impressions 04/15/2018 11:07 AM CDT IMPRESSION: ?? 1. No significant change compared to pel soy ultrasound 06/12/2016. 2. 3.6 cm Pedunculated uterine fibroid o r broad ligament fibroid in the right adnexa is unchanged. 3. Stable mild focal thickening and cyst ic changes of the endometrium in the left aspect of the uterine fundus measur ing 4 to 5 mm in thickness. Elsewhere the endometrium measures approximately 1 mm in thickness. This could represent cystic endometrial hyperplasia or a poss ibly a small partially cystic polyp, although a vascular stalk confirming the presence of a polyp was not identified. Appearance is stable dating back to pelv ic ultrasound 03/15/2014. 4. Stable 7 mm right ovarian cyst. Narrative 04/15/2018 11:07 AM CDT REVISED REPORT: EXAM: ??US PELVIS TRANSVAGINAL AND TRANS ABDOMINAL COMPARISON: ??Ultrasound 06/12/2016, 2013. TECHNIQUE: ??Transabdominal and transvag inal. FINDINGS: Uterus: Retroverted. 1.8x3.8x4.7 cm. No significant change in the appearance of the approximately 1.8 x 3.5 x 3.6 cm lik maxime pedunculated uterine fibroid or broad ligament fibroid with internal mega cifications. Myometrium: Normal. Nabothian cysts inci dentally noted in the cervix. Endometrium: Again seen is focal thicken ing of the endometrium in the left aspect of the fundus measuring 4 to 5 mm with tiny cystic foci, unchanged compared to 06/12/2016 and 03/15/2014. Othe r portions of the endometrium measure 1 mm in thickness. Right ovary: Tiny, 5 x 6 x 7 mm right ov lala cyst is unchanged compared to 06/12/2016. Otherwise normal right ovary. Ovarian volume: 1 cc. Left ovary: Normal. ??Ovarian volume: 0. 2 cc. Intraperitoneal Fluid: None. Procedure Note Fidel Joyce M.D. - 04/15/2018Fo rmatting of this note might be different from the original. REVISED REPORT: EXAM: US PELVIS TRANSVAGINAL AND TRANSAB DOMINAL COMPARISON: Ultrasound 06/12/2016, 03/15/20 14. TECHNIQUE: Transabdominal and transvagin al. FINDINGS: Uterus: Retroverted. 1.8x3.8x4.7 cm. No significant change in the appearance of the approximately 1.8 x 3.5 x 3.6 cm lik maxime pedunculated uterine fibroid or broad ligament fibroid with internal mega cifications. Myometrium: Normal. Nabothian cysts inci dentally noted in the cervix. Endometrium: Again seen is focal thicken ing of the endometrium in the left aspect of the fundus measuring 4 to 5 mm with tiny cystic foci, unchanged compared to 06/12/2016 and 03/15/2014. Othe r portions of the endometrium measure 1 mm in thickness. Right ovary: Tiny, 5 x 6 x 7 mm right ov laal cyst is unchanged compared to 06/12/2016. Otherwise normal right ovary. Ovarian volume: 1 cc. Left ovary: Normal. Ovarian volume: 0.2 cc. Intraperitoneal Fluid: None. IMPRESSION: 1. No significant change compared to pel soy ultrasound 06/12/2016. 2. 3.6 cm Pedunculated uterine fibroid o r broad ligament fibroid in the right adnexa is unchanged. 3. Stable mild focal thickening and cyst ic changes of the endometrium in the left aspect of the uterine fundus measur ing 4 to 5 mm in thickness. Elsewhere the endometrium measures approximately 1 mm in thickness. This could represent cystic endometrial hyperplasia or a poss ibly a small partially cystic polyp, although a vascular stalk confirming the presence of a polyp was not identified. Appearance is stable dating back to pelv ic ultrasound 03/15/2014. 4. Stable 7 mm right ovarian cyst. Kaleigh Francois M.D. IMSylvie US PROCEDURES documented in this encounter Visit Diagnoses Diagnosis Leiomyoma (Fibroid) Uterus - Primary Leiomyoma (Fibroid) Uterus documented in this encounter Care Teams Atomic Spectroscopist Relationship Specialty Start Date End Date Elsewhere, Pcp PCP - General Internal Medicine 07/03/17 documented as of this encounter
--- OUTSIDE RECORDS SUMMARY | 2022-07-30 19:58 | XMS_ITS | Encounter Summary ---
:1945 Author Organization [facility] Address [address] [place] [address] Care Team Providers Name Role Phone Unavailable Primary Care Provider Unavailable Encounter Details Date Type Department Care Team Description 06/26/2016 Hospital Encounter HX NO MAPPING Social History Tobacco Use Types Packs/Day Years Used Date Smoking Tobacco: Never Assessed Alcohol Habits Answer Date Recorded How often [...] (2,000 Unit) mouth every morning. capsule 2400mcg estradiol (ESTRACE) 0.1 Insert 1 application 0 [...] 0 05/17/2020 mg capsule mouth as needed. azelastine (ASTELIN) 137 Administer 1-2 0 014 [...] calcium) tablet ashlyn/ 400 D2/ 500 Magn fluticasone propionate Inhale 1 Inhaler 2 0 05/2404/25/2018 (FLOVENT HFA INHL) (two) times a day. garlic tablet Take 1 tablet by 0 05/24/201511/30 mouth 3 (three) times a day. tricia root (TRICIA Take 1 capsule by 0 5 11/30/2018 EXTRACT ORAL) mouth 3 (three) times a day. glucosamine/msm/csa/ashlyn/h Take 1 tablet by 0 08/2 10/201411/30/2018 rb115 mouth 2 (two) times ([id number]-ASHLYN a day. -115HC ORAL) hydrocortisone Insert 1 [...] by 0 06/2505/06/2018 tablet mouth every evening. documented as of this encounter Plan of Treatment Upcoming Encounters Date Type Specialty Care Team Description 09/08/2022 Procedure visit Aesthetic Medicine and Juanita Vaz, Surgery WATER SYSTEMS ENGINEER, C.N.P. [address] [place] [phone] (Charlotte bentley) 09/08/2022 Comprehensive Visit Aesthetic Medicine Lucero Mckeon, Surgery M.DAnali, Ph.D. [address] [place] [phone] (Charlotte bentley) documented as of this encounter Visit Diagnoses Not on filedocumented in this encounter
--- OUTSIDE RECORDS SUMMARY | 2022-07-30 19:58 | XMS_ITS | Encounter Summary ---
:1945 Author Organization [facility] Address [address] [place] [address] Care Team Providers Name Role Phone Elsewhere, Pcp Primary Care Provider Unavailable Encounter Details Date Type Department Care Team Description 04/15/2018 Hospital Encounter Department of [facility] Lei myoma (Fibroid) Radiology, Kaleigh Pichardo, [facility] in [facility], [address] [place], [place] [address] [facility] [address] [place], [place] [phone] (Work) [phone] Social History Tobacco Use Types Packs/Day Years [...] 0 05/17/2020 mg capsule mouth as needed. atorvastatin (LIPITOR) 10 Take 10 mg by [...] mouth daily. 1000 mg mg calcium) tablet mega/ 400 D2/ 500 Magn ciclopirox (LOPROX) 0.77 Apply topically 2 0 01/0306/13/2019 % cream (two) times a day. ciclopirox (LOPROX) 0.77 Apply topically. 0 04/23 /2018 02/16/2019 % cream fluticasone propionate Inhale 1 Inhaler 2 0 05/2404/25/2018 (FLOVENT HFA INHL) (two) times a day. garlic tablet Take 1 tablet by 0 05/24/201511/30 mouth 3 (three) times a day. tricia root (TRICIA Take 1 capsule by 0 5 11/30/2018 EXTRACT ORAL) mouth 3 (three) times a day. glucosamine/msm/csa/mega/h Take 1 tablet by 0 08/2 10/201411/30/2018 rb115 mouth 2 (two) times ([id number]-MEGA a day. -115HC ORAL) hydrocortisone Insert 1 [...] by 0 06/2505/06/2018 tablet mouth every evening. valacyclovir HCl (VALTREX Take by mouth as 0 02/16/2019 ORAL) needed. valsartan (DIOVAN) 160 mg Take 160 mg by mouth 0 04/25/2018 tablet daily. documented as of this encounter Plan of Treatment Upcoming Encounters Date Type Specialty Care Team Description 09/08/2022 Procedure visit Aesthetic Medicine and Juanita Vaz, Surgery DRAW TENDER, C.N.P. [address] [place] [phone] (Wo rk) 09/08/2022 Comprehensive Visit Aesthetic Medicine and [place], Lucero Decker, Surgery Francesca, Ph.D. [address] [place] [phone] (Wo rk) documented as of this encounter Procedures Procedure Name Priority Date/Time Associated Comments Diagnosis US PELVIS RAD - Routine 04/15/2018 10:42 Leiomyoma Results fo r TRANSVAGINAL AND (most inpatients AM CDT (Fibroid) Uterus thi s procedure TRANSABDOMINAL and all are in the outpatients) results section. documented in this encounter Results US Pelvis Transvaginal and [...] encounter Visit Diagnoses Diagnosis Leiomyoma (Fibroid) Uterus documented in this encounter Care Teams Content Director Relationship Specialty Start Date End Date Elsewhere, Pcp PCP - General Internal Medicine 07/03/17 documented as of this encounter
--- OUTSIDE RECORDS SUMMARY | 2022-07-30 19:58 | XMS_ITS | Encounter Summary ---
:1945 Author Organization [facility] Address [address] [place] [address] Care Team Providers Name Role Phone Elsewhere, Pcp Primary Care Provider Unavailable Reason for Visit Reason Comments Urinary Frequency Patient presents complaining of urinary frequency for about an hour and a half. Denies other sym ptoms or hematuria. Encounter Details Date Type Department Care Team Description 07/03/2017 Emergency [place] [facility] Jose E Willingham, I nfection Urinary Tract Department M.D. (Primary Dx) [address] [facility] [address] [place], [place], [place] [id number] [phone] Social History Tobacco Use Types Packs/Day Years Used Date Smoking Tobacco: Unknown Alcohol Habits Answer Date Recorded How often [...] or relatives? How often do you attend mandaen or More than 4 times per year 01/28/2021 jew services? Do you belong to any clubs or Yes 01/28/2021 organizations such as mandaen groups, unions, fraternal or athletic groups, or [...] Sign Reading Time Taken Comments Blood Pressure 143/65 07/03/2017 7:13 AM CDT Pulse 72 07/03/2017 7:13 AM CDT Temperature - - Respiratory Rate 16 07/03/2017 7:13 AM CDT Oxygen Saturation 99% 07/03/2017 7:13 AM CDT Inhaled Oxygen Concentration - - Weight - - Height - - Body Mass Index - - documented in this encounter Discharge Instructions AttachmentsThe following attachments cannot be sent through Care Everywhere. Urinary Tract Infection, Adult (Bruneian)documented in this encounter Medications at Time of [...] 03/20/2010 (PRINIVIL,ZESTRIL) 20 mg mouth daily. tablet phenazopyridine Take 1 tablet (200 10 tablet 0 07/03/2017 1 (for_PYRIDIUM) 200 mg mg total) by mouth 3 tablet (three) times a day as needed for painful urination for up to 2 days. sulfamethoxazole-trimetho Take 1 tablet by 20 tablet 0 06/0607/08/2017 prim (for_BACTRIM DS) mouth every 12 800-160 mg per tablet (twelve) hours for 5 days. amoxicillin (AMOXIL) 500 Take 2 capsules by [...] 0 05/0511/30/2018 rb115 mouth 2 (two) times (ARIPMTTBFZ-HTXPQ-ZIC-ASHLYN a day. -115HC ORAL) hydrocortisone Insert 1 [...] every evening. documented as of this encounter ED Notes Jose E iWllingham M.D. - 07/03/2017 7:39 AM CDT SUBJECTIVE CHIEF COMPLAINT/REASON FOR VISIT Urinary Frequency (Patient presents complaining of urinary frequency for about an hour and a half. Denies other symptoms or hematuria. ) HISTORY OF PRESENT ILLNESS Bladder infection- sx's for 2 hours, hx of bladder infections, no fever or flank pain History provided by: Patient hourly sign language interpreter used: No REVIEW OF SYSTEMS Genitourinary: Positive for dysuria, frequency and urgency. All other systems reviewed and are negative. OBJECTIVE Initial Vitals [07/03/17 0713] Temp Pulse Rate Heart Rate Resp Rate Blood Pressure SpO2 -- 72 -- 16 143/65 99 % Pain Score -- PHYSICAL EXAMINATION Constitutional: No distress. HENT: Head: Normocephalic and atraumatic. Mouth/Throat: Mucous membranes are moist. Eyes: Conjunctivae and EOM are normal. Pupils are equal, round, and reactive to light. Cardiovascular: Normal rate and regular rhythm. Pulmonary/Chest: Effort normal and breath sounds normal. No respiratory distress. Abdominal: Soft. Bowel sounds are normal and non-distended. There is no tenderness. Neurological: She is alert and oriented to person, place, and time. Skin: Skin is warm and dry. Psychiatric: She has a normal mood and affect. ASSESSMENT/PLAN ED Course pt comfortable with empiric treatment Final diagnoses: [N39.0] Infection Urinary Tract Jose E Willingham M.D. 07/03/17 0741 documented in this encounter Plan of Treatment Upcoming Encounters Date Type Specialty Care Team Description 09/08/2022 Procedure visit Aesthetic Medicine and Juanita Vaz, Surgery CASTING FINISHER, C.N.P. [address] [place] [phone] (Charlotte bentley) 09/08/2022 Comprehensive Visit Aesthetic Medicine and Lucero Pritchard, Surgery MJayda, Ph.D. [address] [place] [phone] (Charlotte bentley) documented as of this encounter Visit Diagnoses Diagnosis Infection Urinary Tract - Primary documented in this encounter Care Teams Gift Officer Relationship Specialty Start Date End Date Elsewhere, Pcp PCP - General Internal Medicine 07/03/17 documented as of this encounter
--- OUTSIDE RECORDS SUMMARY | 2022-07-30 19:58 | XMS_ITS | Encounter Summary ---
:1945 Author Organization [facility] Address [address] [place] [address] Care Team Providers Name Role Phone Elsewhere, Pcp Primary Care Provider Unavailable Reason for Visit Outpatient (Routine) - Closed Specialty Diagnoses / Procedures Referred By Contact Refer red To Contact Obstetrics and Aranza Francoisi on Gynecology Kaleigh Pulliam M.D. [address] [place] [address] Referral ID Status Reason Start Date Expiration Date Visits Requ ested Visits Authorized [id number] Closed 04/11/2018 04/11/2019 1 1 Encounter Details Date Type Department Care Team Description 04/15/2018 Office Visit Department of Annemarie Francois Uterine Obstetrics and Kaleigh Pulliam M.D. Endometrium (Primary Gynecology in [address] [place] [address] Dx) [place], [place] [address] [place] [phone] [place], [place] [phone] (Work) [phone] Social History Tobacco Use Types Packs/Day Years [...] 01/28/2021 organizations such as yarsani groups, unions, fraKaritKarma or athletic groups, or school groups? How [...] documented as of this encounter Consult Notes Kaleigh Francois M.D. - 04/15/2018 2:00 PM CDT Ms. Sheikh returns for follow-up from her procedure nearly 2 years ago. She had a hysteroscopy that was incomplete secondary to a left-sided blockage that we are unable to overcome. At that time she had had an office hysteroscopy that was difficult to we are concerned that there was a false passage.This procedure in the OR had to be done with a flexible hysteroscope and even then it was rather difficult to get into her uterus. We were only able to obtain tissue through the scope which turned out to be insufficient. She had an ultrasound done today which shows that the heterogeneous area inside the uterus is not changed since 2016. In fact unable to 2011 it is very similar. I had radiology compare her ultrasound back to her MRI but it is very indistinct on the MRI previously. I discussed with patient that because this is stable it is unlikely to be anything abnormal even though they are calling in either a polyp or cystic hyperplasia. However her sister had endometrial cancer at this age and she has concerns. She has not had any additional postmenopausal bleeding. I discussed with the options for re-evaluation of this. I think these include MRI, ultrasound in 1 year, attempted endometrial biopsy in the office, or hysteroscopy. I discussed the risks and benefits of each of those. Initially she was interested in MRI but she cannot have that because she has a stimulator in place. Therefore she would like to try hysteroscopy under anesthesia again with the knowledge that we might not be able to evaluate that left side any better then we did before. I think if we start with the flexible hysteroscope and not dilate the cervix at all the we have a lesser chance of creating a false passage. #1 Thickened endometrial stripe #2 Family history of endometrial cancer Patient was listed for a hysteroscopy and will have an endometrial biopsy under anesthesia. documented in this encounter Plan of Treatment Upcoming Encounters Date Type Specialty Care Team Description 09/08/2022 Procedure visit Aesthetic Medicine and Juanita Vaz, Surgery SEAMSTRESS FITTER, C.N.P. [address] [place] [phone] (Charlotte bentley) 09/08/2022 Comprehensive Visit Aesthetic Medicine Lucero Mckeon, Surgery M.Norma, Ph.D. [address] [place] [phone] (Charlotte bentley) documented as of this encounter Visit Diagnoses Diagnosis Thickened Uterine Endometrium - Primary documented in this encounter Care Teams 4Th Grade Math Teacher Relationship Specialty Start Date End Date Elsewhere, Pcp PCP - General Internal Medicine 07/03/17 documented as of this encounter
--- OUTSIDE RECORDS SUMMARY | 2022-07-30 19:58 | XMS_ITS | Encounter Summary ---
:1945 Author Organization [facility] Address [address] [place] [address] Care Team Providers Name Role Phone Elsewhere, Pcp Primary Care Provider Unavailable Reason for Referral Outpatient (Routine) - Closed Specialty Diagnoses / Procedures Referred By Contact Refer red To Contact Certified Nurse Diagnoses Osteopenia JoleneAranza Beaulieu [facility] Practitioner / Kaleigh Pulliam M.D. Preventive Medicine [address] [place] [phone] Referral ID Status Reason Start Date Expiration Date Visits Requ ested Visits Authorized [id number] Closed 05/24/2018 05/24/2019 1 1 Reason for Visit Reason Onset Date Comments Communication 05/16/2018 Encounter Details Date Type Department Care Team Description 05/16/2018 Clinical Communication Department of Dexter Francois Obstetrics and Kaleigh Pulliam M.D. Gynecology in [address] [place] [address] [place] [phone] [place], [place] [phone] (Work) [phone] Social History Tobacco Use Types Packs/Day Years [...] Notes Telephone Encounter - Jena Menchaca - 05/24/2018 4:32 PM CDT Pt has been contacted and scheduled. Telephone Encounter - Kaleigh Francois M.D. - 05/24/2018 3:38 PM CDT I saw outside records and it appears that the April testing shows osteopenia. I have referred her to preventive medicine for a consult on this as well as other age-appropriate screening tests to be updated. Thanks, skl Telephone Encounter - Rajwinder Retana - 05/24/2018 3:20 PM CDT Patient calling and wondering if you have taken a look at her osm that she sent for review. She is also wondering about a referral. Are you able to place these orders? Thank you Telephone Encounter - Jena Menchaca - 05/17/2018 1:42 PM CDT Spoke with pt. She just had imaging done locally, she will fax the report for [facility] to review. Then she would like a referral to someone here at [facility]. Telephone Encounter - Margot Kee R.N. - 05/17/2018 8:41 AM CDT There is no notation that she has not been seen since 2015 or any recent DEXA scans since 06/2016. Would she want to follow up with her PCP? Telephone Encounter - Kaleigh Farncois M.D. - 05/16/2018 2:51 PM CDT [facility] 2015. Can you find out if patient has updated imaging or seen anyone since then?We can refer her to [facility] or maybe endocrine for follow-up of that? Thanks, skl Telephone Encounter - Jena Menchaca - 05/16/2018 1:26 PM CDT Pt is wondering if you could give her some names you would suggest she see for her osteopenia. OK toleave full message on her VM. documented in this encounter Plan of Treatment Upcoming Encounters Date Type Specialty Care Team Description 09/08/2022 Procedure visit Aesthetic Medicine and Juanita Vaz, Surgery CIRCULAR KNITTER HELPER, C.N.P. [address] [place] [phone] (Charlotte bentley) 09/08/2022 Comprehensive Visit Aesthetic Medicine Lucero Mckeon, Surgery M.Norma, Ph.D. [address] [place] [phone] (Charlotte bentley) Scheduled Referrals Name Type Priority Associated Order Schedule Diagnoses Preventive Medicine Outpatient Referral Routine Osteopenia E xpected: - Preventive 05/24/2018 services consult (Approximat e), (clinic) Expires: 05/24/2021 documented as of this encounter Visit Diagnoses Diagnosis Osteopenia - Primary documented in this encounter Care Teams Field Technician Relationship Specialty Start Date End Date Elsewhere, Pcp PCP - General Internal Medicine 07/03/17 documented as of this encounter
--- OUTSIDE RECORDS SUMMARY | 2022-07-30 19:58 | XMS_ITS | Encounter Summary ---
:1945 Author Organization [facility] Address [address] [place] [address] Care Team Providers Name Role Phone Elsewhere, Pcp Primary Care Provider Unavailable Encounter Details Date Type Department Care Team Description 05/06/2018 Surgery Outpatient Procedure Jolene-Christofer, Op erative HYSTEROSCOPY. Center in [place], Kaleigh Pulliam M.D. [place] [address] [place] [address] [place] [phone] Social History Tobacco Use Types Packs/Day Years [...] or slept in a [facility] (including now)? Sex Assigned at Date Recorded Female 07/26/2020 9:06 PM CDT documented as of this encounter Last Filed Vital Signs Vital Sign Reading Time Taken Comments Blood Pressure 109/85 05/06/2018 11:39 AM CDT Pulse 65 05/06/2018 11:39 AM CDT Temperature 36.4 ??C (97.5 ??F) 05/06/2018 11:39 AM CDT Respiratory Rate 10 05/06/2018 11:39 AM CDT Oxygen Saturation 97% 05/06/2018 11:39 AM CDT Inhaled Oxygen Concentration - - [...] 0 100 mg capsule every morning. estradiol (ESTRING) 2 mg Insert 1 application 0 0 03/16/2014 (7.5 mcg /24 hour) into the vagina as vaginal ring directed. Every 3 months L-LYSINE ORAL Take 1 tablet by 0 05/24/2015 mouth every morning. 1000 mg estradiol (ESTRACE) 0.1 Insert 1 application 0 mg/g (0.01%) vaginal into the vagina as cream directed. 3 times a week on the labia lisinopriL Take 1 tablet by 0 03/20/2010 (PRINIVIL,ZESTRIL) 20 mg mouth daily. tablet aspirin-calcium carbonate Take 81 mg by mouth [...] mouth 2 (two) times a day. calcium citrate Take 6 tablets by 0 05/24/2015 (CALCITRATE) 950 mg (200 mouth daily. 1000 mg mg calcium) tablet mega/ 400 D2/ 500 Magn ciclopirox (LOPROX) 0.77 Apply topically 2 0 01/0306/13/2019 % cream (two) times a day. CINNAMON Take 2 tablets by 0 019 GPKO-SJEJVIAX-IRE ORAL mouth daily. garlic tablet Take 1 tablet by 0 05/24/201511/30 mouth 3 (three) times a day. tricia root (TRICIA Take 1 capsule by 0 5 11/30/2018 EXTRACT ORAL) mouth 3 (three) times a day. glucosamine/msm/csa/mega/h Take 1 tablet by 0 05/0511/30/2018 rb115 mouth 2 (two) times (XLDRDFCMVM-HQSFX-SHZ-MEGA a day. -115HC ORAL) hydrocortisone Insert 1 [...] mg 0 11/30/2018 powder UNABLE TO FIND [place] 200mg 0 08/05 amoxicillin (AMOXIL) 500 Take 2 capsules by 0 05/17/2020 mg capsule mouth as needed. calcium carb,gluc/mag Take 4 capsules by 0 201402/16/2019 ox,gluc (CALCIUM mouth. MAGNESIUM ORAL) ciclopirox (LOPROX) 0.77 Apply topically. 0 01/2402/16/2019 % cream valacyclovir HCl (VALTREX Take by mouth as 0 02/16/2019 ORAL) needed. documented as of this encounter H&P Notes Stephy Lantigua M.D., Ph.D. - 05/06/2018 9:21 AM CDT INTERVAL HISTORY AND PHYSICAL PRE-PROCEDURE UPDATE H&P reviewed. The patient was examined and there are no significant changes to the H&P. Stephy Lantigua M.D., Ph.D. Source Note - Kaleigh Francois M.D. - 04/15/2018 2:00 PM [...] changed since 2016. In fact unable to 2012 it is very similar. I had radiology [...] biopsy under anesthesia. documented in this encounter OR Notes Op Note - Kaleigh Francois M.D. - 05/06/2018 10:33 AM CDT Procedure(s) with comments: Operative HYSTEROSCOPY. DILATATION, CURETTAGE. - Advance as indicated. LYSIS ADHESIONS Surgeon(s) and Role: * Kaleigh Francois M.D. - Primary * Stephy Lantigua M.D., Ph.D. - Resident - Assisting ANESTHESIA TYPE General PRE-OPERATIVE DIAGNOSIS Uterine mass POST-OPERATIVE DIAGNOSIS FINDINGS Normal vagina and cervix. Uterus initially had a left-sided obliteration which was taken down completely. No abnormal tissue seen in the uterine cavity. DESCRIPTION OF PROCEDURE Informed consent was obtained. Previously, the patient was placed in the dorsal lithotomy position using candy-cane stirrups. Anesthesia was general. Perineum was prepped and draped in the usual sterile fashion. A surgical time-out was taken. A speculum was inserted. The anterior lip of the cervix was grasped with a single-tooth tenaculum, and a 3 mm flexible hysteroscope was used to evaluate the uterus. I was able to see a clear entry into the uterine cavity with the right side open all the way up to the office but the left side obliterated as previously seen. There is no evidence of false channel lower in the cervix. The cervix was serially dilated to accommodate a No. 5 Hegar dilator. An Operative hysteroscope was inserted into the uterine cavity. Saline was used as the distending media. Using the hysteroscopic graspers I was able to open up the entire leftside of the uterine cavity up until the tubal os. We intermittently did vaginal ultrasound to confirm that there was minimal risk of perforation. Eventually I was able to take down all of the scar tissue and then perform a full endometrial biopsy using a micro curette and an Endo sampler. I was unableto insert a a larger curette. The entire uterus was although as evidence by re-evaluation with the hysteroscope at the end of the case. Tenaculum was removed from the cervix. Estimated blood loss was 10 cc. The cervix was hemostatic. Sponge and instrument count was correct. The patient was transferred to the recovery room in excellent condition. SPECIMENS ID Type Source Tests Collected by Time A : Uterine contents Tissue Uterus SURGICAL PATHOLOGY, [facility] Kaleigh Philip M.D. 05/06/2018 0954 DRAINS ESTIMATED BLOOD LOSS 0 mL IMPLANTS * No implants in log * INTRA-OPERATIVE MEDICATIONS Intra-op Medications None Kaleigh Francois M.D. Brief Op Note - Stephy Lantigua M.D., Ph.D. - 05/06/2018 10:33 AM CDT BRIEF OP NOTE Procedure(s) with comments: Operative HYSTEROSCOPY. DILATATION, CURETTAGE. - Advance as indicated. LYSIS ADHESIONS Surgeon(s) and Role: * Kaleigh Francois M.D. - Primary * Stephy Lantigua M.D., Ph.D. - Resident - Assisting Anesthesia Type: General Pre-Operative Diagnosis: Leiomyoma (Fibroid) Uterus [D25.9]. Post-Operative Diagnosis: Same as pre-operative diagnosis Findings: Right ostia clearly visualized. After dissection of fibrotic tissue on left side of uterus, left ostia visualized. Endometrial tissue sampled, sent for permanent pathology. Complications: None Specimens ID Type Source Tests Collected by Time A : Uterine contents Tissue Uterus SURGICAL PATHOLOGY, [facility] Kaleigh Philip M.D. 05/06/2018 0954 Drains * No drains in log * Estimated Blood Loss 0 mL Implants * No implants in log * Stephy Lantigua M.D., Ph.D. documented in this encounter Plan of Treatment Upcoming Encounters Date Type Specialty Care Team Description 09/08/2022 Procedure visit Aesthetic Medicine and Juanita Vaz, Surgery COMPUTER AIDED DESIGN TECHNICIAN, C.N.P. [address] [place] [phone] (Wo rk) 09/08/2022 Comprehensive Visit Aesthetic Medicine Lucero Mckeon, Surgery M.D., Ph.D. [address] [place] [phone] (Wo rk) documented as of this encounter Procedures Procedure Name Priority Date/Time Associated Comments Diagnosis LYSIS ADHESIONS OVARY 05/06/2018 9:55 AM Leiomyoma (Fi broid) CDT Uterus DILATATION AND 05/06/2018 9:55 AM Leiomyoma (Fibroid) CURETTAGE CDT Uterus HYSTEROSCOPY 05/06/2018 9:55 AM Leiomyoma (Fibroid) CDT Uterus SURGICAL PATHOLOGY, Routine 05/06/2018 9:54 AM Leiomyoma (Fibr oid) Results for this [facility] CDT Uterus procedure are i n the results section. documented in this encounter Results Surgical Pathology, [facility] (05/06/2018 9:54 AM CDT) Component Value Ref Test Analysis Performed At [facility] Range Method Time Signature Gross Description A. ??Received fresh labeled with patient name, alanna hdez 05/12/2018 [facility] number and labeled as uterine contents is a 0.5 x 0.4 x 2:22 PM LABORATORIES - 0.2 cm aggregate of hemorrhagic irregular tissue fragments . [facility] All submitted for permanent sections only. Grossed by [place] [id number]. Report Frankie Do M.D. [phone] [facility] electronically I verify that I have examined all relevant slides/ma terials 2:22 PM LABORATORIES - signed by for the specimen(s) and rendered or confirmed the diagnosi s. [facility] 05/12/2018 [facility] 2:22 PM LABORATORIES - [facility] Block Summary A Uterine contents 05/12/2018 [facility] LINIC A1 Uteriine contents 2:22 PM LABORATOR IES - [facility] Interpretation FINAL DIAGNOSIS 05/12/2018 [facility] MUKUL A. ??Uterine contents, curettage: ??Scant fragments of live ign 2:22 PM LABORATORIES - squamous epithelium and degenerated endometrium. CDT [facility] Specimen (Source) Anatomical Collection Method Collection Time Re ceived Time Location / / Volume Laterality Tissue (Uterus) 05/06/2018 9:54 AM CDT Narrative This result has an attachment that is no t available. Kaleigh Francois M.D. LAB SURG PATH ORDERABL ES Performing Organization Address City/State/ZIP Code Phon e Number [facility] - [address] [place], [place] [address] [facility] documented in this encounter Visit Diagnoses Diagnosis Leiomyoma (Fibroid) Uterus - Primary Leiomyoma (Fibroid) Uterus documented in this encounter Admitting Diagnoses Diagnosis Leiomyoma (Fibroid) Uterus documented in this encounter Administered Medications Inactive Administered Medications - up to 3 most recent administrations Medication Order MAR Action Action Date Dose Rate Site acetaminophen tablet 1,000 mg Given 05/06/2018 10:01 AM CDT 1,00 0 mg (TYLENOL) 1,000 mg, oral, Once, On Wed05/06/18 at 1015, For 1 dose, Pre-Op scopolamine base 1 mg Medication Applied 05/06/2018 10:01 AM 1 patch Behind Left Ear over 3 days 1 patch CDT (TRANSDERM SCOP) 1 patch, transdermal, Administer over 72 Hours, Once as needed, nausea, vomiting, Starting on Wed05/06/18 at 1001, For 1 dose, Pre-Op sodium chloride injection 10 mL 10 mL, intravenous, As needed, line care , Starting on Wed05/06/18 at 1001, Pre-Op, Peripheral Intravenous Catheter and Rapid Infusion Cat heter, prior to blood sampling, post blood transfusion or post blood samplin g sodium chloride injection 3 mL 3 mL, intravenous, As needed, line care, Starting on Wed05/06/18 at 1001, Pre-Op, Prior to and following infusion and betw een multiple consecutive infusions: sodium chloride 0.9 % injection sodium chloride injection 3 mL 3 mL, intravenous, Every 12 hours scheduled, First dos e on Wed05/06/18 at 2100, Pre-Op, Peripheral Intravenous Catheter and Rapid Infu mukul Catheter, when no infusion to maintain patency documented in this encounter Active and Recently Administered Medications Times are shown in CDT. Scheduled Medication Order 05/04/2018 05/05/2018 05/06/2018 acetaminophen injection 1,000 mg (OFIRMEV) 1145 (Due) 1,000 mg, intravenous, at 400 mL/hr, Adm inister over 15 Minutes, Once, Wed05/06/18 at 1145, For 1 dose, PACU (only), Oral unless RASS less than -1 or nausea/vomiting. Do not use if given in last 6 hours, Restriction Criteria (Pharmacy will rev iew and approve if criteria met): Unable to take or tolerate medications administered via the enteral route or orally (not just NPO) acetaminophen tablet 1,000 mg (TYLENOL) (COMPLETED) 1001 (Given - Provider: Luzma Ramirez R.N.) 1,000 mg, oral, Once, On Wed05/06/18 at 1015, For 1 dose, Pre-Op acetaminophen tablet 1,000 mg (TYLENOL) 1145 (Due) 1,000 mg, oral, Once, Wed05/06/18 at 1145 , For 1 dose, PACU (only), Oral unless RASS less than -1 or nausea/vomiting. Do not use if given in last 6 hours lidocaine (PF) 10 mg/mL (1 %) injection 1 mL (XYLOCAINE) 1015 (Due) 1 mL, infiltration, Once, Wed05/06/18 at 1015, For 1 dose, Pre-Op, May admin up to 1 mL at the site of IV site if not allergic to lidocaine sodium chloride injection 3 mL 3 mL, intravenous, Every 12 hours schedu led, First dose on Wed05/06/18 at 2100, Pre-Op, Peripheral Intravenous Catheter and Rapid Infusion Catheter, when no infusion to maintain patency sodium chloride injection 3 mL 3 mL, intravenous, Every 12 hours schedu led, First dose on Wed05/06/18 at 2100, Pre-Op, Peripheral Intravenous Catheter and Rapid Infusion Catheter, when no infusion to maintain patency Continuous Medication Order 05/04/2018 05/05/2018 05/06/2018 lactated ringers 1130 (Due) 50 mL/hr, intravenous, at 50 mL/hr, Cont inuous, Starting Wed05/06/18 at 1130, PACU & Post-Op PRN Medication Order 05/04/2018 05/05/2018 05/06/2018 dexamethasone injection 4 mg (DECADRON) 4 mg, intravenous, Once as needed, nause a, vomiting, Starting Wed05/06/18 at 1141, For 1 dose, PACU (only), Give only if NOT given during the pre or intraoperative period. If ondansetron ordered, give dexamethasone with first dose of ondansetron. droperidol injection 0.625 mg (INAPSINE) 0.625 mg, intravenous, Every 6 hours PRN , nausea, vomiting, Starting Wed05/06/18 at 1141, For 48 hours, PACU (only), Total of 3 doses in 24 hour period. RASS must be -2 or higher to administer. Reassess for nausea or vomiting after at least 10 minutes. If nausea or vomiting persists administer next ordered antiemetic medications (order for antiemetic medication administration ondansetron then droperido l then promethazine)., Indications: Nausea and Vomiting fentaNYL injection 25 mcg (SUBLIMAZE) 25 mcg, intravenous, Every 2 min PRN, Fo r pain 4 or greater (maximum 100 mcg). If max dose of Fentanyl is reached and if pain is greater than 4, discontinue Fentanyl: give Hydromorphone, Starting Wed05/06/18 at 1141, PACU (only) ketamine injection 10 mg (KETALAR) 10 mg, intravenous, Once as needed, Refr actory moderate pain or score 4-6 of 10, Refractory severe pain score 7-10 of 10 after fentanyl or hydromorphone administration, Pain sedation mismatch AND RASS l ess than -1, Starting Wed05/06/18 at 1141, For 1 dose, PACU (only ) ondansetron (PF) injection 4 mg (ZOFRAN) 4 mg, intravenous, Every 6 hours PRN, na usea, vomiting, Starting Wed05/06/18 at 1141, For 48 hours, PACU (only), Reassess for nausea or vomiting after at least 10 minutes. If nausea or vomiting persists administer next ordered antiemetic medic ations (order for antiemetic medication administration ondansetron then droperidol then promethazine). scopolamine base 1 mg over 3 days 1 patch (TRANSDERM SCOP) 1001 (Medication Applied - Provider: Luzma Ramirez R.N.)[id number] (Due: Medication Removed - Provider: Discharge Provider, Automatic - Comment: Time automatically adjusted from order being discontinued) 1 patch, transdermal, Administer over 72 Hours, Once as needed, nausea, vomiting, Starting on Wed05/06/18 at 1001, For 1 dose, Pre-Op sodium chloride injection 10 mL 10 mL, intravenous, As needed, line care , Starting Wed05/06/18 at 1001, Pre-Op, Peripheral Intravenous Catheter and Rapid Infusion Catheter, prior to blood sampling, post blood transfusion or post blood sampling sodium chloride injection 10 mL 10 mL, intravenous, As needed, line care , Starting on Wed05/06/18 at 1001, Pre- Op, Peripheral Intravenous Catheter and Rapid Infusion Catheter, prior to blood sampling, post blood transfusion or post blood sampling sodium chloride injection 3 mL 3 mL, intravenous, As needed, line care, Starting Wed05/06/18 at 1001, Pre-Op, Prior to and following infusion and between multiple consecutive infusions: sodium chloride 0.9 % injection sodium chloride injection 3 mL 3 mL, intravenous, As needed, line care, Starting on Wed05/06/18 at 1001, Pre-Op, Prior to and following infusion and between multiple consecutive infusions: sodium chloride 0.9 % injection documented in this encounter Care Teams Resident Program Specialist Relationship Specialty Start Date End Date Elsewhere, Pcp PCP - General Internal Medicine 07/03/17 documented as of this encounter
--- OUTSIDE RECORDS SUMMARY | 2022-07-30 19:58 | XMS_ITS | Encounter Summary ---
:1945 Author Organization [facility] Address [address] [place] [phone] Care Team Providers Name Role Phone Elsewhere, Pcp Primary Care Provider Unavailable Reason for Visit Reason Comments Hypertension Outpatient (Routine) - Closed Specialty Diagnoses / Procedures Referred By Contact Refer red To Contact Nephrology and Diagnoses Elevated [facility] M.D[facility]ali [address] [place] [phone] Referral ID Status Reason Start Date Expiration Date Visits Requ ested Visits Authorized [id number] Closed 04/15/2018 04/15/2019 1 1 Encounter Details Date Type Department Care Team Description 04/25/2018 Nurse Only Division of Nephrology and Don Sidhu M.D. Hypertension Hypertension in [facility], Giselle Pulliam, R.N. [address] [place] [phone] [place] [address] [place] [phone] Social History Tobacco Use Types Packs/Day [...] place to sleep or slept in a jail (including now)? Sex Assigned at Date Recorded Female 07/26/2020 9:06 PM CDT documented as of this encounter Last Filed Vital Signs Vital Sign Reading Time Taken Comments Blood Pressure 116/70 04/25/2018 1:50 PM CDT Pulse 70 04/25/2018 1:47 PM CDT Temperature - - Respiratory Rate - - Oxygen Saturation - - Inhaled Oxygen Concentration - - Weight - - Height - - Body Mass Index - - documented in this encounter Progress Notes Giselle Howe R.N. - 04/25/2018 1:00 PM CDT Provider Name: Dr. Amato Reason for Visit: New short-term patient Relevant History: hypertension Arm Use: Either. Cuff Size: Regular adult Home BP Monitor?: Yes, not assessed for accuracy this visit. Patient Contact Information: Preferred contact: cell phone Exercise?: Yes, swims, bikes, walks, and does strength training exercises. Patient's weight is: Patient's weight is stable. Tobacco Use: History Smoking Status ??? Never Smoker Smokeless Tobacco ??? Not on file Alcohol Use: History Alcohol Use ??? Yes ??? 2 Glasses of wine per week Caffeine Use: Yes Type of caffeine: coffee Amount of caffeine: 1-2 cups daily Dietary Assessment: does not add salt to food, rarely eats out and has met with our renal brush stainer and has been educated on the DASH eating plan. Home blood pressure trends are 120's-130's systolically. Plan of Care: In-office blood pressures are: within goal. Dizziness/Lightheadedness: denies dizziness or lightheadedness. Recommended and reviewed: low sodium diet Additional recommendations include: maintain good hydration. Avoidance of NSAIDS, avoidance of decongestants. Recommend having home blood pressure monitor assessed for accuracy. Instructed patient to call me if blood pressure is greater than 130/80. My business card was provided to the patient. The patient wonders about her urine protein and whether or not she should have the urine protein test repeated. Medications: Continue on current medications for now. We will review this visit with the ordering provider and follow up with any further recommendations as directed. documented in this encounter Plan of Treatment Upcoming Encounters Date Type Specialty Care Team Description 09/08/2022 Procedure visit Aesthetic Medicine and Juanita Vaz, Surgery CARBONIZER TESTER, C.N.P. [address] [place] [phone] (Wo rk) 09/08/2022 Comprehensive Visit Aesthetic Medicine and Lucero Pritchard, Surgery M.Norma, Ph.D. [address] [place] [phone] (Wo rk) documented as of this encounter Visit Diagnoses Diagnosis Elevated Creatinine documented in this encounter Care Teams Grill Attendant Relationship Specialty Start Date End Date Elsewhere, Pcp PCP - General Internal Medicine 07/03/17 documented as of this encounter
--- OUTSIDE RECORDS SUMMARY | 2022-07-30 19:58 | XMS_ITS | Encounter Summary ---
:1945 Author Organization [facility] Address [address] [place] [address] Care Team Providers Name Role Phone Elsewhere, Pcp Primary Care Provider Unavailable Encounter Details Date Type Department Care Team Description 04/15/2018 Hospital Encounter Department of Ángel Sidhu Creatinine Laboratory Medicine Francesca Perera and Pathology, [facility] in [place], [place] [address] [place] [address] Social History Tobacco Use Types Packs/Day Years [...] or relatives? How often do you attend mandaeism or More than 4 times per year 01/28/2021 mandaeism services? Do you belong to any clubs or Yes 01/28/2021 organizations such as mandaeism groups, unions, fraternal or athletic groups, or [...] or slept in a chcf (including now)? Sex Assigned at Date Recorded [...] 0.77 Apply topically. 0 01/2402/16/2019 % cream fluticasone propionate Inhale 1 Inhaler 2 0 05/2404/25/2018 (FLOVENT HFA INHL) (two) times a day. garlic tablet Take 1 tablet by 0 05/24/201511/30 mouth 3 (three) times a day. tricia root (TRICIA Take 1 capsule by 0 5 11/30/2018 EXTRACT ORAL) mouth 3 (three) times a day. glucosamine/msm/csa/ashlyn/h Take 1 tablet by 0 08/2 10/201411/30/2018 rb115 mouth 2 (two) times ([id number] a day. -115HC ORAL) hydrocortisone Insert 1 [...] visit Aesthetic Medicine and Juanita Vaz, Surgery FINISHING DEPARTMENT SUPERVISOR, C.N.P. [address] [place] [address] (Wo rk) 09/08/2022 Comprehensive Visit Aesthetic Medicine and Lucero Pritchard, Surgery M.D., Ph.D. [address] [place] [address] (Wo rk) documented as of this encounter Procedures Procedure Name Priority Date/Time Associated Comments Diagnosis MICROSCOPIC AUTOMATED Routine 04/15/2018 1:58 PM Results for this CDT procedure are i n the results section. ALBUMIN, RANDOM, U Routine 04/15/2018 1:58 PM Elevated Creatin ine Results for this CDT procedure are i n the results section. URINALYSIS WITH Routine 04/15/2018 1:58 PM Elevated Creatinine Results for this MICROSCOPIC CDT procedure are i n the results section. documented in this encounter Results Microscopic Automated (04/15/2018 1:58 PM CDT) athologist Signature Microscopy Normal 04/15/2018 [facility] 2:41 PM CDT [facility] Specimen Anatomical Collection Method Collection Time Receive d Time (Source) Location / / Volume Laterality Urine 04/15/2018 1:58 PM 8 1:58 CDT PM CDT Airam Amato M.D., Ph.D. LAB URINE ORDERABLES Performing Organization Address City/State/ZIP Code Phon e Number [facility] - [address] [place], [place] [address] [facility] (ABNORMAL) Microalbumin, Random, Urine (04/15/2018 1:58 PM CDT) athologist Signature Microalbumin <5.0 mg/L 04/15/2018 [facility] 2:26 PM CDT [facility] Comment: ----ADDITIONAL INFORMATION---- This test has been modified from the man ufacturer's instructions. Its performance characteri stics were determined by [facility] in a manner co nsistent with CLIA requirements. This test has not bee n cleared or approved by the U.S. Food and Drug Admin istration. Creatinine 15 mg/dL 04/15/2018 2:26 PM [facility] CDT LAB[facility]ATORIES [facility] S Albumin/Creatinine <33 (H) <25 mg/g 04/15/2018 2:26 PM [facility] Ratio CDT LABORATORIES [facility] Comment: This ratio may not correspond with the r eference range because one or both of the values used t o calculate the ratio was above or below the quantificat ion limits. Specimen Anatomical Collection Method Collection Time Receive d Time (Source) Location / / Volume Laterality Urine (Urine, 04/15/2018 1:58 PM 04/15/20 18 1:58 Clean Catch) CDT PM CDT Ángel Sidhu M.D. LAB URINE ORDERABLES Performing Organization Address City/State/ZIP Code Phon e Number [facility] - [address] [place], [place] [address] [facility] (ABNORMAL) Urinalysis with Microscopic (04/15/2018 1:58 PM CDT) [facility] gist Method Time Signature Source Midstream 04/15/2018 [facility] 1:58 PM CDT [facility] Appearance Normal Normal 04/15/2018 [facility] 2:26 PM CDT [facility] Osmolality, U 91 (L) 150 - 1150 04/15/2018 [facility] mOsm/kg 3:26 PM CDT [facility] pH, U 5.8 4.5 - 8.0 04/15/2018 [facility] 3:26 PM CDT [facility] Comment: ----ADDITIONAL INFORMATION---- This test was developed and its performa nce characteristics determined by [facility] in a manner co nsistent with CLIA requirements. This test has not bee n cleared or approved by the U.S. Food and Drug Admin istration. Glucose <2 0 - 15 mg/dL 04/15/2018 2:26 PM CDT [facility] Protein, U <4 <26 mg/dL 04/15/2018 2:26 PM CDT [facility] Comment: ----ADDITIONAL INFORMATION---- On 03/30/2017 the total protein assay me thod changed resulting in approximately a 15% increase in prote in values. Protein/Osmolality <0.44 (H) <0.42 Ratio 04/15/2018 3:26 PM [facility] Comment: ----ADDITIONAL INFORMATION---- On 03/30/2017 the total protein assay me thod changed resulting in approximately a 15% increase in prote in values. Predicted 24 Hr <317 mg/24 h 04/15/2018 3:26 PM [facility] Protein CDT LABORATORIES - [facility] S Predicted Range <1284 mg/24 h 04/15/2018 3:26 PM [facility] CDT LABORATORIES - [facility] Hemoglobin, QL Negative Negative 04/15/2018 2:41 PM [facility] CDT LAB[facility]ATORIES - [facility] Specimen Anatomical Collection Method Collection Time Receive d Time (Source) Location / / Volume Laterality Urine (Urine, 04/15/2018 1:58 PM 04/15/20 1:58 Clean Catch) CDT PM CDT Ángel Sidhu M.D. LAB URINE ORDERABLES Performing Organization Address City/State/ZIP Code Phon e Number [facility] - [address] [place], [place] [address] [facility] documented in this encounter Visit Diagnoses Diagnosis Elevated Creatinine documented in this encounter Care Teams Contract Negotiation Specialist Relationship Specialty Start Date End Date Elsewhere, Pcp PCP - General Internal Medicine 07/03/17 documented as of this encounter
--- OUTSIDE RECORDS SUMMARY | 2022-07-30 19:58 | XMS_ITS | Encounter Summary ---
:1945 Author Organization [facility] Address [address] [place] [address] Care Team Providers Name Role Phone Elsewhere, Pcp Primary Care Provider Unavailable Encounter Details Date Type Department Care Team Description 05/06/2018 Hospital Encounter Outpatient Priscila sandoval (Fibroid) Procedure Center Kaleigh herrera Uterus [place], M.D. [place] [address] [facility] [address] [place] [phone] Social History Tobacco Use Types Packs/Day Years [...] CINNAMON Take 2 tablets by 0 019 [id number]-[id number]-LSD ORAL mouth daily. garlic tablet Take 1 tablet by 0 05/24/201511/30 mouth 3 (three) times a day. tricia root (TRICIA Take 1 capsule by 0 5 11/30/2018 EXTRACT ORAL) mouth 3 (three) times a day. glucosamine/msm/csa/mega/h Take 1 tablet by 0 05/0511/30/2018 rb115 mouth 2 (two) times ([id number] a day. -115HC ORAL) hydrocortisone Insert 1 [...] mg 0 11/30/2018 powder UNABLE TO FIND Mart Lantry 200mg 0 08/05 amoxicillin (AMOXIL) 500 Take [...] visit Aesthetic Medicine and Juanita Vaz, Surgery VALVE MECHANIC, C.N.P. [address] [place] [address] (Wo rk) 09/08/2022 Comprehensive Visit Aesthetic Medicine Lucero Mckeon, Surgery M.D., Ph.D. [address] [place] [address] (Wo rk) documented as of this encounter [...] Component Value Ref Test Analysis Performed At [facility] gist Range Method Time Signature Gross Description A. ??Received fresh labeled with patient name, alanna hdez 05/12/2018 [facility] number and labeled as uterine contents is a 0.5 x 0.4 x 2:22 PM LABORATORIES - 0.2 cm aggregate of hemorrhagic irregular tissue fragments . [facility] All submitted for permanent sections only. Grossed by [place] [id number]. Report Frankie Do M.D. [phone] [facility] electronically I verify that I have examined all relevant slides/ma terials 2:22 PM LABORATORIES - signed by for the specimen(s) and rendered or confirmed the diagnosi s. [facility] 05/12/2018 [facility] 2:22 PM LABORATORIES - [facility] Block Summary A Uterine contents 05/12/2018 [facility] A1 Uteriine contents 2:22 PM LABORATOR IES - [facility] Interpretation FINAL DIAGNOSIS 05/12/2018 [place] [facility] MUKUL A. ??Uterine contents, curettage: ??Scant fragments of live ign 2:22 PM LABORATORIES - squamous epithelium and degenerated endometrium. CDT [facility] Specimen (Source) Anatomical Collection Method Collection Time Re ceived Time Location / / Volume Laterality Tissue (Uterus) 05/06/2018 9:54 AM CDT Narrative This result has an attachment that is no t available. Kaleigh Francois M.D. LAB SURG PATH ORDERABL ES Performing Organization Address City/State/ZIP Code Phon e Number [facility]ATORIES - [address] [place], [place] [address] [facility] documented in this encounter Visit Diagnoses Diagnosis Leiomyoma (Fibroid) Uterus - Primary documented in this encounter Admitting Diagnoses Diagnosis [...] injection documented in this encounter Care Teams Raspberry Checker Relationship Specialty Start Date End Date Elsewhere, Pcp PCP - General Internal Medicine 07/03/17 documented as of this encounter
--- OUTSIDE RECORDS SUMMARY | 2022-07-30 19:58 | XMS_ITS | Encounter Summary ---
:1945 Author Organization [facility] Address [address] [place] [address] Care Team Providers Name Role Phone Elsewhere, Pcp Primary Care Provider Unavailable Reason for Visit Outpatient (Routine) - Closed Specialty Diagnoses / Procedures Referred By Contact Refer red To Contact Nutrition Diagnoses Elevated Creatinine Ángel Sidhu M.D. [address] [address] Referral ID Status Reason Start Date Expiration Date Visits Requ ested Visits Authorized [id number] Closed 04/15/2018 04/15/2019 1 1 Encounter Details Date Type Department Care Team Description 04/25/2018 Clinical Support Department of Marques Sampson Nutrition [place], [place] RDN, LD [address] [place] [phone] Social History Tobacco Use Types Packs/Day Years [...] - Inhaled Oxygen Concentration - - Weight 77.7 kg (171 lb 4.8 oz) 04/25/2018 8:25 AM CDT Height 168 cm (5' 6.14) 04/25/2018 8:25 AM CDT Body Mass Index 27.53 04/25/2018 8:25 AM CDT documented in this encounter Progress Notes Deja Sampson M.S., RDN, LD - 04/25/2018 8:30 AM CDT CHIEF COMPLAINT/REASON FOR VISIT Hypertension HISTORY OF PRESENT ILLNESS The following portions of the patient's history were reviewed and updated as appropriate: current medications and medical history. Met with patient. ASSESSMENT Relevant Social and Family History Patient lives alone. She does her own grocery shopping and meal preparation at home. Food/Nutrition Related History Diet recall: Breakfast: either old fashioned oatmeal with various fruit or egg and toast with a little cheese. Drinks some milk and black coffee 1-2 cups. Morning snack: rarely Lunch: often a salad with various vegetables with oil and vinegar dressing, includes soy milk or spanish yogurt Afternoon snack: fruit if anything. Drinks water or orange juice. Evening meal: meat, and salad, limited grains (maybe a little pasta). Drinks water or a small amountof milk Bedtime snack: rarely Salt/Seasoning use: no salt is added while cooking or at the table. Physical activity: Patient is active with a nice variety of activities - walking, swimming, stationary biking, strength exercises too. Weight History Date: 04/25/18 Weight: Wt 77.7 kg kg Body mass index is Body mass index is 27.53 kg/m??.. Patient reports her weight is down about 10 pounds with more careful eating, fewer sweets/dessert and more activity. Estimation of Nutritional Needs Weight Used for Equation Calculations: 77.7 kg Total Calorie Needs: 5910-3529 calories Estimated Protein Needs (1): 62 to Estimated Protein Needs(2): 78 NUTRITION DIAGNOSIS Food- and nutrition-related knowledge deficit related to no prior exposure to specific nutritional guidelines for hypertension, mild chronic kidney disease as evidenced by elevated blood pressure and creatinine. Nutrition Prescription/Recommendation 4153-6614 mg sodium DASH eating plan INTERVENTION Education: Blood pressure control using the DASH eating plan. MONITORING AND EVALUATION: Nutrition parameter to monitor: Food intake Desired Outcome: Improve blood pressure Patient Goal(s): 2479-2061 mg sodium DASH eating plan FOLLOW UP PLAN: Patient will call to schedule follow-up appointment if desired Time spent with patient (minutes): 45 documented in this encounter Plan of Treatment Upcoming Encounters Date Type Specialty Care Team Description 09/08/2022 Procedure visit Aesthetic Medicine and Juanita Vaz, Surgery MUD GRINDER, C.N.P. [address] [place] [address] (Charlotte bentley) 09/08/2022 Comprehensive Visit Aesthetic Medicine and Lucero Pritchard, Surgery M.Norma, Ph.D. [address] [place] [phone] (Charlotte bentley) documented as of this encounter Visit Diagnoses Diagnosis Elevated Creatinine documented in this encounter Care Teams On Call Relationship Specialty Start Date End Date Elsewhere, Pcp PCP - General Internal Medicine 07/03/17 documented as of this encounter
--- OUTSIDE RECORDS SUMMARY | 2022-07-30 19:58 | XMS_ITS | Encounter Summary ---
:1945 Author Organization [facility] Address [address] [place] [id number] Care Team Providers Name Role Phone Elsewhere, Pcp Primary Care Provider Unavailable Reason for Referral Outpatient (Routine) - Closed Specialty Diagnoses / Procedures Referred By Contact Refer red To Contact Nephrology and Diagnoses Elevated Creatinine Ángel Sidhu, [facility] Hypertension M.D. [address] [place] [phone] Referral ID Status Reason Start Date Expiration Date Visits Requ ested Visits Authorized [id number] Closed 04/15/2018 04/15/2019 1 1 Outpatient (Routine) - Closed Specialty Diagnoses / Procedures Referred By Contact Refer red To Contact Nutrition Diagnoses Elevated Creatinine Ángel Sidhu M.D. [address] [phone] Referral ID Status Reason Start Date Expiration Date Visits Requ ested Visits Authorized [id number] Closed 04/15/2018 04/15/2019 1 1 Specialty Diagnoses / Procedures Referred By Contact Refer red To Contact Airam Amato M.D. , Ph.D. [address] [phone] Referral ID Status Reason Start Date Expiration Date Visits Requ ested Visits Authorized Reason for Visit Appointment Request (Routine) - Closed Specialty Diagnoses / Procedures Referred By Contact Refer red To Contact Nephrology and Hypertension Referral ID Status Reason Start Date Expiration Date Visits Requ jf Visits Authorized [id number] Closed 04/11/2018 04/11/2019 1 1 Encounter Details Date Type Department Care Team Description 04/15/2018 Comprehensive Visit Division of Airam Amato Elevated Creatinine (Primary Dx); Nephrology and C MJayda, Hypertension And Chronic Kidney Disease Stage 1 To 4 Hypertension in Ph.D. [place], [place] [address] [facility] [address] [place] [phone] Social History Tobacco Use Types Packs/Day Years [...] More than 4 times per year 01/28/2021 spiritism services? Do you belong to any clubs [...] Sign Reading Time Taken Comments Blood Pressure 115/61 04/15/2018 8:12 AM CDT Pulse 63 04/15/2018 8:12 AM CDT Temperature 36.3 ??C (97.3 ??F) 04/15/2018 8:12 AM CDT Respiratory Rate - - Oxygen Saturation - - Inhaled Oxygen Concentration - - Weight 77.7 kg (171 lb 4.8 oz) 04/15/2018 8:12 AM CDT Height 168 cm (5' 6.14) 04/15/2018 8:12 AM CDT Body Mass Index 27.53 04/15/2018 8:12 AM CDT documented in this encounter Consult Notes Ángel Sidhu M.D. - 04/15/2018 8:30 AM CDT Referring Provider: Primary Care Physician SUBJECTIVE REASON FOR CONSULT HTN/CKD HISTORY OF PRESENT ILLNESS Ms. Sheikh is a 72 y.o. female with a history of hypertension, hyperlipidemia, osteoarthritis, bladder spasms who presents today for an elevated creatinine and GFR. Patient has recently been seen at the [facility] for further cardiovascular health and preventative medicine. After SIRS of tests was found that her creatinine was 0.87 and that her GFR was 64. Patient is concerned that this represents start of chronic kidney disease. At that time no urinalysis was done but previous urinalysis is not showing any protein in the urine. Other labs at that time was sodium was 138, potassium 4.0, creatinine 0.87 GFR 64. Glucose of 94 fasting. Patient reportsthat her blood pressures been under better control in today was 115/61. She has been taking valsartan 160 mg daily since January and has not had any side effects with this. She is checking her blood pressure at home is always in the 120 systolic. She has no personal history of cardiovascular disease or a kidney disease she has never had a kidney stone she has not had frequent UTIs recently and she doesnot take any NSAIDs is not exposed to contrast. Overall her family history is positive for hypertension and some cardiovascular disease she does not smoke and she does not drink. She has been using a low-salt diet and has been losing around 10 lb intentionally over the last few months. Otherwise she was also recently started on atorvastatin 10 for her hyperlipidemia. She has not noticed any blood in the urine. The following portions of the patient's history were reviewed and updated as appropriate: allergies,current medications, family history, medical history, social history, surgical history and problem list. REVIEW OF SYSTEMS Musculoskeletal: Positive for muscle pain/stiffness. The following systems were negative: Constitutional, Skin, Eyes, ENT, CV, Respiratory, GI, , Hematologic, Neuro, Psych OBJECTIVE BP 115/61 Pulse 63 Temp 36.3 ??C (Tympanic) Ht 168 cm Wt 77.7 kg BMI 27.53 kg/m?? PHYSICAL EXAMINATION Constitutional: She is oriented to person, place, and time. She appears well- developed and well-nourished. HENT: Head: Normocephalic and atraumatic. Eyes: EOM are normal. Pupils are equal, round, and reactive to light. Right eye exhibits no discharge. Left eye exhibits no discharge. No scleral icterus. Cardiovascular: Normal rate, regular rhythm, normal heart sounds and intact distal pulses. Exam reveals no gallop and no friction rub. No murmur heard. Pulmonary/Chest: Effort normal, breath sounds normal and breasts normal. No respiratory distress. She has no wheezes. She exhibits no tenderness. Neurological: She is alert and oriented to person, place, and time. Skin: Skin is warm and dry. No rash noted. No erythema. No pallor. Psychiatric: She has a normal mood and affect. ASSESSMENT / PLAN #1 Reduced GFR #2 HTN with possible CKD #3 HLD At this time it is unclear if patient has chronic kidney disease. She has not had previous imaging of her kidney and she has not had a recent urinalysis. Overall her GFR is slightly diminished for her age group but stated to her that this can be complicated as creatinine is not an absolute measure kidney function. At this time we will assess for chronic kidney disease with a renal ultrasound and lookat her Dopplers as she does have a family history of cardiovascular disease. Additionally we will obtain a cystatin c along with getting a repeat urinalysis to see if there is any protein in her urine.We will call her about these results and plan to see her back in 1 year's time. Additionally will have her meet with our nurses to have her blood pressure machine calibrated we will send her to the keeping her kidneys well class for education purposes and have her meet with our collaborating supervising physician here. Gave her pamphlets and handouts regarding dash diet and chronic kidney disease. Reinforced the patient is doing all the correct things to reduce her risk for developing CKD or advancement of this disease. We will be in touch with her following her results Ángel Sidhu M.D. documented in this encounter Plan of Treatment Upcoming Encounters Date Type Specialty Care Team Description 09/08/2022 Procedure visit Aesthetic Medicine and Juanita Vaz, Surgery [employer], C.N.P. [address] [place] [phone] ([place] rk) 09/08/2022 Comprehensive Visit Aesthetic Medicine Lucero Mckeon, Surgery MJayda, Ph.D. [address] [place] [phone] ([place] rk) Scheduled Referrals Name Type Priority Associated Order Schedule Diagnoses Patient Education - Outpatient Referral Routine Elevated Creat inine Expected: Keeping your kidneys 018 healthy education (Approxima te), visit (clinic) Expires: 04/15/2021 Nutrition - Outpatient Referral Routine Elevated Creatinine E xpected: Nephrology consult 8 (clinic) (Approximate), Expires: 04/15/2021 Nephrology nurse Outpatient Referral Routine Elevated Creatini ne Expected: visit (clinic) 04/15/2018 (Approximate), Expires: 04/15/2021 documented as of this encounter Results US Kidneys with Renal [...] Negative for renal artery st enosis. Ángel Sidhu M.D. IMG US PROCEDURES (ABNORMAL) Microalbumin, Random, Urine (04/15/2018 1:58 PM CDT) P athologist Signature Microalbumin <5.0 mg/L 04/15/2018 [facility] 2[facility]26 PM CDT [facility] - [facility] Comment: ----ADDITIONAL INFORMATION---- This test has been modified from the man ufacturer's instructions. Its performance characteri stics were determined by [facility] in a manner co nsistent with CLIA requirements. This test has not bee n cleared or approved by the U.S. Food and Drug Admin istration. Creatinine 15 mg/dL 04/15/2018 2:26 PM [facility] CD[facility] Albumin/Creatinine <33 (H) <25 mg/g 04/15/2018 2:26 PM [facility] Ratio CDT [facility] Comment: This ratio may not correspond with [...] Organization Address City/State/ZIP Code Phon e Number [facility] [address] (ABNORMAL) Urinalysis with Microscopic (04/15/2018 1:58 PM CDT) [facility] gist Method Time Signature Source Midstream 04/15/2018 [facility] 1:58 PM CDT [facility] Appearance Normal Normal 04/15/2018 [facility] 2:26 PM CDT [facility] Osmolality, U 91 (L) 150 - 1150 04/15/2018 [facility] mOsm/kg 3:26 PM CDT [facility] pH, U 5.8 4.5 - 8.0 04/15/2018 [facility] 3:26 PM CDT [facility] Comment: ----ADDITIONAL INFORMATION---- This test was developed and its performa nce characteristics determined by [facility] in a manner co nsistent with CLIA requirements. This test has not bee n cleared or approved by the U.S. Food and Drug Admin istration. Glucose <2 0 - 15 mg/dL 04/15/2018 2:26 PM CDT [facility] Protein, U <4 <26 mg/dL 04/15/2018 2:26 PM CDT [facility] [employer] [facility] Comment: ----ADDITIONAL INFORMATION---- On 03/30/2017 the total protein assay me thod changed resulting in approximately a 15% increase in prote in values. Protein/Osmolality <0.44 (H) <0.42 Ratio 04/15/2018 3:26 PM [facility] Comment: ----ADDITIONAL INFORMATION---- On 03/30/2017 the total protein assay me thod changed resulting in approximately a 15% increase in prote in values. Predicted 24 Hr <317 mg/24 h 04/15/2018 3:26 PM [facility] Protein T [facility] Predicted Range <1284 mg/24 h 04/15/2018 3:26 PM [facility] Hemoglobin, QL Negative Negative 04/15/2018 2:41 PM [facility] Specimen Anatomical Collection Method Collection Time Receive d Time (Source) Location / / Volume Laterality Urine (Urine, 04/15/2018 1:58 PM 04/15/20 18 1:58 Clean Catch) CDT PM CDT Ángel Sidhu M.D. LAB URINE ORDERABLES Performing Organization Address City/State/ZIP Code Phon e Number [facility] - [address] [place], [place] [address] [facility] Cystatin C with Estimated GFR (04/15/2018 12:58 PM CDT) P athologist Signature eGFR by 79 >60 04/15/2018 [facility] Cystatin C mL/min/BSA 4:24 PM CDT [facility] Comment: ----ADDITIONAL INFORMATION---- Cystatin C-based eGFR may differ substan tially from creatinine-based eGFR in patients with a bnormal muscle mass or acutely changing renal function. ??Pl ease interpret together with relevant clinical features. Cystatin C, S 0.91 0.68 - 1.36 mg/L 04/15/2018 4:24 PM CDT [facility] PUS Specimen Anatomical Collection Method Collection Time Receive d Time (Source) Location / / Volume Laterality Blood (Blood, 04/15/2018 12:58 04/15/2018 1:53 Venous) PM CDT PM CDT Ángel Sidhu M.D. LAB BLOOD ADD-ON Performing Organization Address City/State/ZIP Code Phon e Number [facility] [address] [place], [place] [address] [facility] documented in this encounter Visit Diagnoses Diagnosis Elevated Creatinine - Primary Hypertension And Chronic Kidney Disease Stage 1 To 4 Elevated Creatinine Hypertension And Chronic Kidney Disease Stage 1 To 4 documented in this encounter Care Teams Program Architect Relationship Specialty Start Date End Date Elsewhere, Pcp PCP - General Internal Medicine 07/03/17 documented as of this encounter
--- OUTSIDE RECORDS SUMMARY | 2022-07-30 19:59 | XMS_ITS | Encounter Summary ---
:1945 Author Organization [facility] Address [address] [place] [address] Care Team Providers Name Role Phone Unavailable Primary Care Provider Unavailable Encounter Details Date Type Department Care Team Description 06/24/2016 Hospital Encounter HX [facility] Kira Tang, PAnaliAAnali-CAnali [address] [place] [address] [phone] (Wo rk) Social History Tobacco Use Types [...] Sign Reading Time Taken Comments Blood Pressure 145/79 06/24/2016 11:37 AM CDT Pulse 63 06/24/2016 11:37 AM CDT Temperature - - Respiratory Rate 16 06/24/2016 11:37 AM CDT Oxygen Saturation - - Inhaled Oxygen Concentration - - Weight 80.6 kg (177 lb 11.1 oz) 06/24/2016 11:37 AM CDT Height - - Body Mass Index 28.22 06/11/2016 10:15 AM CDT documented in this encounter Discharge Summaries Rossy Brooks R.N. - 06/24/2016 11:47 AM CDT ED Discharge Instructions [address] [address] Name: IMELDA GARCIA Date of : 1945 12:00 AM Visit Date: 06/24/2016 11:34 AM [facility] Number: [id number] Address: [address] [place] [phone] Primary Care Provider: IMPORTANT: [facility] in [place] would like to thank you for allowing us to assist you with your healthcare needs. We examined and treated you today on an emergency basis only. This was not a substitute for, or an effort to provide, complete medical care. If you had any cultures, special tests, or x-rays performed during your visit, your final reports will be reviewed and we will contact you if there are any new or significant findings other than what was discussed with you during your visit today. You have received patient education materials and information regarding your injury/illness. Follow these instructions and take all medications as prescribed. Ifyou, ( IMELDA GARCIA ), have any problems that we have not discussed, please call or visit your doctor right away. If you cannot reach your doctor, return to the Emergency Department. If you are being transferred to another facility your follow up plan of care will be determined by the receiving facility. Diagnosis: Follow-Up Instructions: With: Address: When: Follow up with primary care provider Within As Needed Your Upcoming Appointments: Date Time Location Provider No Appointments found Patient Education Materials: Tick Bite (Abx Tx) You have been bitten by a tick. Ticks are small insects that feed on the blood of rodents, rabbits, birds, deer, dogs and humans. The bite may cause a local reaction like that of a spider, with a smallamount of local redness, itching and slight swelling. Sometimes there is no local reaction. Most tick bites are harmless, but some ticks carry diseases that can be passed to people at the timeof the bite. Lyme disease is of greatest concern. At the present time, you have no symptoms of Lyme disease or other serious reaction to the bite. It is important to watch for the warning signs, which could appear weeks to months after the tick bite. Home Care: If itching is a problem, avoid tight clothing and anything that heats up your skin (hot showers/baths, direct sunlight). This will tend to make the itching worse. Use ice packs to reduce redness as well as itching. An ice pack (ice cubes in a plastic bag, wrapped in a towel) will reduce local areas of redness and itching. Lanacort or Lanacaine cream (contains benzocaine and is available [id number]) will reduce itching. If large areas of the skin are involved and if no other antihistamine was prescribed, Benadryl (diphenhydramine) is an antihistamine available at drug and grocery stores. It may be used to reduce itching if large areas of the skin are involved. Use lower doses during the daytime and higher doses at bedtime since the drug may make you sleepy. [NOTE: Do not use Benadryl if you have glaucoma or difficulty urinating due to an enlarged prostate.] Claritin (loratidine) is an antihistamine that causes lessdrowsiness and is a good alternative for daytime use. ANTIBIOTICS are being prescribed to reduce your risk of getting Lyme's disease. It is very importantthat you take them exactly as directed until they are completely finished. Follow Up with your doctor or as advised. Get Prompt Medical Attention if any of the following occur: Signs Of Local Infection (next few days) ?? Increasing redness around the bite site ?? Increased pain or swelling ?? Fever over 100.4?F (38.0?C) ?? Fluid draining from the bite area Signs Of Tick-Related Disease (next few weeks to months) ?? Circular red ring-like rash appears at the bite area within 1-3 weeks ?? Tiredness, fever or chills, nausea or vomiting ?? Neck pain or stiffness, headache, confusion ?? Muscle, bone aching ?? Irregular or rapid heart beat ?? Joint pain or swelling (especially the knee joint) ?? Numbness or tingling or weakness in the arms or legs ?? Weakness on one side of the face h?? [phone] [facility], [address] [place] [address], [place] [address]. All rights reserved. This information is not intended as a substitute for professional medical care. Always follow your healthcare professional's instructions. Consider Using Patient Online Services Patient Online Services is a secure online and Mobile application that lets you: ?? View lab and test results ?? View portions of your medical record including clinical notes, immunizations and discharge summaries ?? Request an appointment or medication refill ?? Review your appointment schedule ?? Send secure messages to your care team Its easy to create an account if you dont have one. Go to [email or web address] and click on Create Your Account. Then, follow the directions to complete the online form. Youll be asked for your [facility] number which you can find at the top of this document. ED Tests and Procedures: Order Status Discharge Prescriptions & Home Medications: Medication/Strength Dose Route Frequency Indications/Special Instructions/Comments/Notes doxycycline (doxycycline monohydrate 100 mg oral tablet) 100 mg Oral two times a day for 10 Days estradiol (Vivelle 0.05 mg/24 hours twice weekly transdermal film, extended release) 1 patch(es) Topical 2 times a week progesterone (Prometrium) 1 cap once a day Comment: Attention: If you have any medications at home not on this list, DO NOT take them until you contact your provider for clarification. Give a copy of your medication list to your primary care provider. Update your medication list any time medications or doses are changed and carry your medication list at all times in case of emergency. IMPORTANT: I, ( IMELDA GARCIA ), have received the above patient education materials/instructions and have verbalized understanding. My questions have been answered. I understand I may receive a follow-up call from the Emergency Department staff regarding my health. If seen for an occupational injury or illness, I understand that work-related medical information may be released to my employer or employers c s s representative. I understand that restrictions apply both on and off duty, but do not prevent me from performing reasonable self-cares or prescribed exercises. If you are a patient that is being discharged from the Emergency Department after receiving narcotics or other medications that may impair your judgment you may be a risk to yourself or others if you operate a motor vehicle. We recommend that you arrange a ride home with a responsible republican. Patient Signature or Responsible Republican/Relationship Date Time IMELDA GARCIA or Responsible Person has received this information and tells me that all questions have been answered. Provider Signature Date Time IMPORTANT: I, ( IMELDA GARCIA ), have received the above patient education materials/instructions and have verbalized understanding. My questions have been answered. I understand I may receive a follow-up call from the Emergency Department staff regarding my health. If seen for an occupational injury or illness, I understand that work-related medical information may be released to my employer or employers c s s representative. I understand that restrictions apply both on and off duty, but do not prevent me from performing reasonable self-cares or prescribed exercises. If you are a patient that is being discharged from the Emergency Department after receiving narcotics or other medications that may impair your judgment you may be a risk to yourself or others if you operate a motor vehicle. We recommend that you arrange a ride home with a responsible republican. Patient Signature or Responsible Republican/Relationship Date Time IMELDA GARCIA or Responsible Person has received this information and tells me that all questions have been answered. Provider Signature Date Time This document has images extracted. Please consider using [employer] for all your patient education needs. Source: [employer] Document Id: [id number] Rossy Brooks R.N. - 06/24/2016 11:47 AM CDT ED Depart Summary [facility] Emergency Department Clinical Discharge Summary PERSON INFORMATION Name IMELDA GARCIA Age 70 Years 1945 12:00 AM Sex Female Language Citizen Of [place] PCP Marital Status Single Visit Id Visit Reason Insect bite and/or sting; INSECT BITE Specialty Enc Type Emergency Med Service Emergency Medicine Referred by [facility] ED/FT Discharge 06/24/2016 11:47 AM Tracking Id [id number] Checkout 06/24/2016 11:47 AM Checkin 06/24/2016 11:34 AM Acuity 5 -Non Urgent Dispo Type * Discharged to Home or Self Care Arrival 06/24/2016 11:34 AM Reg Status LOS 000 00:13 Address: [address] [place] [phone] Comment: PROVIDER INFORMATION Provider Role Provider Contact Time ALBA SWEET MA ED Creative Services Designer 06/24/16 11:41 VAZQUEZ TANG PA-C ED Provider 06/24/16 11:41 ROSSY BROOKS TIRE REPAIRMAN Nurse 06/24/16 11:45 DIAGNOSIS Comment: ORDERS INFORMATION Start Time Order Type Status Stop Time Provider 06/24/2016 11:45 AM Discharge ED Patient Patient Care Ordered 06/24/2016 11:45 AM VAZQUEZ TANG PA-C 06/24/2016 11:47 AM Rx Sent Electronically Discern Rule Order Ordered 06/24/2016 11:47 AM SYSTEM, SYSTEM PATIENT EDUCATION INFORMATION Instructions: TICK BITE, Abx Tx Follow up: With: Address: When: Follow up with primary care provider Within As Needed Source: [employer] Document Id: [id number] documented in this encounter Medications at Time [...] calcium) tablet mega/ 400 D2/ 500 Magn fluticasone propionate Inhale [...] 08/2 10/201411/30/2018 rb115 mouth 2 (two) times ([id number]-PQV-MEGA a day. -115HC ORAL) hydrocortisone Insert 1 [...] (OMEGA 3 FISH OIL mouth daily. ORAL) documented as of this encounter Progress Notes Vazquez Tang P.A.-C. - 06/24/2016 12:00 AM CDT [id number] This is a 70-year-old female with a chief complaint of bite on her left shoulder. She was outside, working in the yard. She is outside quite a bit. She thinks she might have gotten a deer tick, but nowshe has a little bit of redness spreading outside the immediate bite site. Where the little scab was, there was no visible embedded tick that she can see. She does not remember pulling an engorged tickoff her. Denies fever, chills, nausea, vomiting, joint aches, or other constitutional symptoms. PAST MEDICAL/SURGICAL HISTORY Generally healthy. ALLERGIES Codeine, morphine. PHYSICAL EXAMINATION A well-developed female. She is alert, oriented, pleasant. Examination of the left upper arm; there is a central area of eschar with some surrounding erythema in about a 4 cm pattern in diameter, oval,but this has no central clearing. It does not appear like a bull's eye type like rash. No embedded tick or foreign body. IMPRESSION/REPORT/PLAN Tick bite in endemic area for Lyme's. PLAN: For now, prophylactic prescription for doxycycline 100 mg tablets by mouth 2 times a day for 10 days. Follow up with her primary as needed. Home care instructions for tick bite and antibiotic treatment reviewed. Eric Luevano/tien Electronically Signed By: VAZQUEZ TANG PA-C On: 06/29/2016 07:43 PM Source: [facility] MHSDOLBEYNONRADSYS Document Id: [id number] documented in this encounter ED Notes Rossy Brooks R.N. - 06/24/2016 11:47 AM CDT ED Disposition Summary ED Disposition Summary Entered On: 06/24/2016 11:47 CDT Performed On: 06/24/2016 11:47 CDT by ROSSY BROOKS RN ED Disposition Summary Present in Room During Exam/Procedure : Alone Mode of Discharge : Ambulatory Transportation : Private vehicle Printed Discharge Instructions Given to Patient : Yes ROSSY BROOKS RN - 06/24/2016 11:47 CDT Source: [facility] POWERCHART Document Id: [id number] CDT!6 Rossy Brooks R.N. - 06/24/2016 11:45 AM CDT ED Primary Assessment Document Has Been Updated ED Primary Assessment Entered On: 06/24/2016 11:47 CDT Performed On: 06/24/2016 11:45 CDT by ROSSY BROOKS RN Reason For Visit (As Of: 06/24/2016 11:47:05 CDT) Diagnoses(Active) Insect bite and/or sting Date: 06/24/2016 ; Diagnosis Type: Reason For Visit ; Confirmation: Complaint of ; Clinical Dx: Insect bite and/or sting ; Classification: Medical ; Clinical Service: Emergencymedicine ; Code: PNED ; Probability: 0 ; Diagnosis Code: [id number] Triage Mode of Arrival ED : Private vehicle Track : Medical Languages : Citizen [place] Treatments Prior to Arrival : None Is Patient Female and 13-50 no hysterectomy : No ROSSY BROOKS RN - 06/24/2016 11:45 CDT Pain Assessment Pain Symptoms : Yes ROSSY BROOKS RN - 06/24/2016 11:45 CDT Respiratory Airway : Patent Respirations : Unlabored Respiratory Pattern : Regular ROSSY BROOKS RN - 06/24/2016 11:45 CDT Cardiovascular Heart Rhythm : Regular Skin Color : Normal for ethnicity Skin Description : Dry Skin Temperature : Warm ROSSY BROOKS RN - 06/24/2016 11:45 CDT Neurological Last Well Time Known : Not applicable Level of Consciousness : Alert Orientation : Oriented x 3 Characteristics of Speech : Appropriate for age ROSSY BROOKS RN - 06/24/2016 11:45 CDT ED Psychosocial Affect/Behavior : Calm Domestic Abuse Concerns : None Behavioral Health Screen/Safety Assmt : No ROSSY BROOKS RN - 06/24/2016 11:45 CDT Gastrointestinal Nutrition ED : Adequate ROSSY BROOKS RN - 06/24/2016 11:45 CDT Integumentary Integ Note : enlarged red area on the left upper arm from a bug bite ROSSY BROOKS RN - 06/24/2016 11:45 CDT Musculoskeletal Fall Prevention Education Provided : Yes ROSSY BROOKS RN - 06/24/2016 11:45 CDT Social Habits Smoking Status : Unknown if ever smoke Tobacco 2A : Unknown Tobacco Use/Currently Using : No Tobacco Use/Last 30 Days : No Tobacco Use/Last 12 months : No ROSSY BROOKS RN - 06/24/2016 11:45 CDT Source: [facility] POWERCHART Document Id: [id number] CDT!39 Coral Tillman R.N. - 06/24/2016 11:37 AM CDT ED Triage Assessment Document Has Been Updated ED Triage Assessment Entered On: 06/24/2016 11:40 CDT Performed On: 06/24/2016 11:37 CDT by CORAL TILLMAN RN Reason For Visit (As Of: 06/24/2016 11:40:29 CDT) Diagnoses(Active) Insect bite and/or sting Date: 06/24/2016 ; Diagnosis Type: Reason For Visit ; Confirmation: Complaint of ; Clinical Dx: Insect bite and/or sting ; Classification: Medical ; Clinical Service: Emergencymedicine ; Code: PNED ; Probability: 0 ; Diagnosis Code: [id number] Triage Chief Complaint Description : insect bite to left shoulder and older ones in that same area, states has a bulls eye appearence Information Given By : Patient Present in Room During Exam/Procedure : Alone Mode of Arrival ED : Private vehicle Track : Medical Languages : Citizen [place] Patient Informed of Triage Location : Urgent Care Vital Signs Assessed : Yes GCS Assessed : Yes Treatments Prior to Arrival : None Is Patient Female and 13-50 no hysterectomy : No CORAL TILLMAN RN - 06/24/2016 11:37 CDT Vital Signs Temperature Core : 36.6 DegC(Converted to: 97.9 DegF) Peripheral Pulse Rate : 63 /min Respiratory Rate : 16 /min Systolic Blood Pressure : 145 mmHg (HI) Diastolic Blood Pressure : 79 mmHg NIBP Mean : 101 mmHg SpO2 : 97 % Oxygen Therapy : Room air Actual Weight : 80.6 kg Actual Weight Conversion to Pounds : 177.32 lb CORAL TILLMAN RN - 06/24/2016 11:37 CDT [place] Coma Eye Opening Response Breann : Spontaneously Best Verbal Response [place] : Oriented Best Motor Response Breann : Obeys simple commands [place] Coma Score : 15 CORAL TILLMAN RN - 06/24/2016 11:37 CDT Pain Assessment Pain Symptoms : Yes CORAL TILLMAN RN - 06/24/2016 11:37 CDT Pain Scale Pain Scale Verbal 0-10 : Open CORAL TILMLAN RN - 06/24/2016 11:37 CDT Pain Pain Assessment Grid Pain 1 Location : Shoulder Laterality : Left CORAL TILLMAN RN - 06/24/2016 11:37 CDT OTILIO DCP GENERIC CODE Tracking Acuity : 5 -Non Urgent Tracking Group : LASF ED/FT CORAL TILLMAN RN - 06/24/2016 11:37 CDT Allergy (As Of: 06/24/2016 11:40:30 CDT) Allergies (Active) codeine Estimated Onset Date: Unspecified ; Reactions: vomiting ; Created By: MAYELIN GARCIA RN; Reaction Status: Active ; Category: Drug ; Substance: codeine ; Type: Allergy ; Updated By: MAYELIN GARCIA; Reviewed Date: 06/24/2016 11:40 CDT morphine Estimated Onset Date: Unspecified ; Reactions: vomiting ; Created By: MAYELIN GARCIA RN; Reaction Status: Active ; Category: Drug ; Substance: morphine ; Type: Allergy ; Updated By: MYLA GARCIA RN; Reviewed Date: 06/24/2016 11:40 CDT Source: Optim[employer] Document Id: [id number] CDT!42 documented in this encounter Miscellaneous Notes Miscellaneous - Conversion, Historical Provider Ser - 06/24/2016 11:47 AM CDT Coding Summary-Paper Based CODING DATE: 07/01/2016 [facility] STATUS: * Discharged to Home or Self Care PAYOR: Commercial Insurance ADMIT DX: L30.9 Dermatitis, unspecified REASON FOR VISIT DX: FINAL DX: PRINCIPAL: L30.9 Dermatitis, unspecified SECONDARY: PROCEDURES DOCTOR NAME DATE NOTE: The code number assigned matches the documented diagnosis and / or procedure in the patient's chart. However, the narrative phrase printed from the coding software may appear abbreviated, or result in slightly different terminology. Coded By: BANG MINOR Date Saved: 07/01/2016 12:34 pm Source: [employer] Document Id: [id number] documented in this encounter Plan of Treatment Upcoming Encounters Date Type Specialty Care Team Description 09/08/2022 Procedure visit Aesthetic Medicine and Juanita Vaz, Surgery WIND ENERGY MECHANIC, C.N.P. [address] [place] [address] (Wo rk) 09/08/2022 Comprehensive Visit Aesthetic Medicine and Macho, Lucero Decker Surgery Francesca, Ph.D. [address] [place] [address] [phone] (Wo rk) documented as of this encounter Visit Diagnoses Not on filedocumented in this encounter
--- OUTSIDE RECORDS SUMMARY | 2022-07-30 19:59 | XMS_ITS | Encounter Summary ---
:1945 Author Organization [facility] Address [address] [place] [address] Care Team Providers Name Role Phone Unavailable Primary Care Provider Unavailable Encounter Details Date Type Department Care Team Description 06/23/2016 Hospital Encounter HX NO MAPPING Provider, Historical Social History Tobacco Use Types [...] 08/2 10/201411/30/2018 rb115 mouth 2 (two) times ([id number]-ASHLYN a day. -115HC ORAL) hydrocortisone Insert 1 [...] daily. ORAL) documented as of this encounter Plan of Treatment Upcoming Encounters Date Type Specialty Care Team Description 09/08/2022 Procedure visit Aesthetic Medicine and Juanita Vaz, Surgery BROADLOOM WEAVER, C.N.P. [address] [place] [address] (Charlotte bentley) 09/08/2022 Comprehensive Visit Aesthetic Medicine Lucero Mckeon, Surgery M.DAnali, Ph.D. [address] [place] [address] (Charlotte bentley) documented as of this encounter Visit Diagnoses Not on filedocumented in this encounter
--- OUTSIDE RECORDS SUMMARY | 2022-07-30 19:59 | XMS_ITS | Encounter Summary ---
:1945 Author Organization [facility] Address [address] [place] [address] Care Team Providers Name Role Phone Unavailable Primary Care Provider Unavailable Encounter Details Date Type Department Care Team Description 05/29/2015 Hospital Encounter HX NO MAPPING Social History [...] or relatives? How often do you attend confucianism or More than 4 times per year 01/28/2021 adventist services? Do you belong to any clubs or Yes 01/28/2021 organizations such as confucianism groups, unions, fraternal or athletic groups, or [...] or slept in a long-term (including now)? Sex Assigned at Date Recorded [...] 08/2 10/201411/30/2018 rb115 mouth 2 (two) times ([id number]-LGEBB-JWB-ASHLYN a day. -115HC ORAL) hydrocortisone Insert 1 application 0 03/16/2014 11/30/2018 (CORTIFOAM) 10 % (80 mg) into the rectum as rectal foam needed. PRN MAGNESIUM CITRATE ORAL Take 4 tablets by 0 201411/30/2018 mouth. 800 mg multivitamin tablet Take 1 tablet by 0 05/24/2015 04/25/2018 mouth daily. mv-mn/folic Take 1 tablet by 0 08/03/2009 02/27/2 019 acid/calcium/vit K mouth daily. (ONE-A-DAY WOMEN'S 50 PLUS ORAL) omega-3 fatty acids/fish Take 2 capsules by 0 06/13/2019 oil (OMEGA 3 FISH OIL mouth daily. ORAL) documented as of this encounter Plan of Treatment Upcoming Encounters Date Type Specialty Care Team Description 09/08/2022 Procedure visit Aesthetic Medicine and Juanita Vaz, Surgery RN TEACHER, C.N.P. [address] [place] [address] [phone] (Charlotte bentley) 09/08/2022 Comprehensive Visit Aesthetic Medicine Lucero Mckeon Surgery MJayda, Ph.D. [address] [place] [phone] (Charlotte bentley) documented as of this encounter Visit Diagnoses Not on filedocumented in this encounter
--- OUTSIDE RECORDS SUMMARY | 2022-07-30 19:59 | XMS_ITS | Encounter Summary ---
:1945 Author Organization [facility] Address [address] [place] [address] Care Team Providers Name Role Phone Unavailable Primary Care Provider Unavailable Encounter Details Date Type Department Care Team Description [facility] Social History Tobacco Use Types Packs/Day Years [...] or relatives? How often do you attend jainism or More than 4 times per year 01/28/2021 yarsanism services? Do you belong to any clubs or Yes 01/28/2021 organizations such as jainism groups, unions, fraternal or athletic groups, or [...] visit Aesthetic Medicine and Juanita Vaz, Surgery RATING SPECIALIST, C.N.P. [address] [place] [address] (Wo rk) 09/08/2022 Comprehensive Visit Aesthetic Medicine and Macho, Lucero Decker Surgery Francesca, Ph.D. [address] [place] [address] [phone] (Wo rk) documented as of this encounter Visit Diagnoses Not on filedocumented in this encounter
--- OUTSIDE RECORDS SUMMARY | 2022-07-30 20:01 | XMS_ITS | Encounter Summary ---
:1945 Author Organization [place] Address [address] [place] [address]. [place] [address] Care Team Providers Name Role Phone Carlota Landeros MD Unavailable Michelle Montana RN Unavailable Anh Costa MILK WAGON DRIVER PARTS CONTROL CLERK Unavailable Unavailable Martinez Galicia MD Unavailable Sabino Romano DPM Unavailable Mehreen Johnston MD PhD Unavailable [phone] LogMargot sadler MD Unavailable Margot Branham MD [...] Visit Internal Medicine Margot Branham MD [address] [place] [address] [phone] (Wo rk) documented as of this encounter Visit Diagnoses Not on filedocumented in this encounter Additional Health Concerns Assessment Noted Time PHQ-9 Depression Total Score: 0 11/22/2019 10:49 AM CS T documented as of this encounter Care Teams Telephone Sales Agent Relationship Specialty Start Date End Date Margot Branham MD PCP - General Internal Medicine 10/28/[address] [place] [address] [phone] Carlota Landeros MD MD Urology 04/10/[address] [place], [place] [phone] Michelle Montana RN Registered Nurse Urology 05/07/17 Anh Costa APRN PARTS CONTROL CLERK Nurse Practitioner Nurse Practitioner 10/07 Martinez Galicia MD MD Ophthalmology 04/18/18 420 [place], [place] [phone] Sabino Romano DPM MD Podiatry 08/11/[address] [phone] Mehreen Johnston MD PhD MD Family Practice 11/15/[address] [place] [address] [phone] Margot Branham MD MD Internal Medicine 04/17/[address] [place] [address] [phone] Margot Branham MD Assigned PCP 09/15/[address] [place] [address] [phone] Alonso Tejeda MD MD Internal Medicine 06/19/[address] [place] [phone] documented as of this encounter
--- OUTSIDE RECORDS SUMMARY | 2022-07-30 20:01 | XMS_ITS | Encounter Summary ---
:1945 Author Organization [place] Address [address] [place] [address]. [place] [address] Care Team Providers Name Role Phone Carlota Acuña MD Unavailable Michelle Montana RN Unavailable Anh Costa TECHNICIAN MEDICAL ARTIST Unavailable Unavailable Martinez Galicia MD Unavailable Sabino Romano DPM Unavailable Mehreen Johnston MD PhD Unavailable [phone] Margot Branham MD Unavailable Margot Branham MD Unavailable Margot Branham MD Primary Care Provider Reason for Referral Therapeutic Procedure Only (Routine: Next available opening) - Pending Review Specialty Diagnoses / Procedures Referred By Contact Refer red To Contact Diagnoses Menopausal syndrome (hot flashes) Margot Branham MD [address] [place] [address] 4545 5 Referral ID Status Reason Start Date Expiration Date Visits V isits Requested Authorized [id number] Pending 04/24/2022 04/24/2023 1 1 Review Reason for Visit Reason Comments Night Sweats Encounter Details Date Type Department Care Team Description 04/24/2022 Office Visit [facility] Margot Branham MD Menopausal syndrome (hot flashes) (Prima ry Dx); Clinic Internal [address] Abnormal findings on diagnostic imaging of other specified body structures Medicine [address] [place], [place] 4th Floor [address] [place], [place] [phone] (Work) [phone] Social History Tobacco Use Types Packs/Day Years [...] not smoker Colonoscopy (45-75 yrs): Last 05/18 [place], normal, no specimens Dexa (>65W or 70M yrs): due 06/25 at [place] Mammogram (40-75 yrs): 06/22 here, otherwise at [place], due Pap (21-65 yrs): Lab Results Component [...] affect and mood Diagnostics: Labs reviewed in [facility] Assessment and Plan: Yamileth was seen today [...] Visit Internal Medicine [place], MD Margot [address] [address] (Wo rk) Scheduled Referrals Name Type Priority Associated Order Schedule Diagnoses Acupuncture Referral Referral Routine: Next Menopausal syndrome Expected: available opening (hot flashes) 2 (Approximate), Expires: 04/24/2023 documented as of this encounter Results UA with Micro reflex to Culture (04/24/2022 11:48 AM CDT) [facility] Method Time Signature Color Urine Yellow Colorless, [facility] 04/24/2022 [facility] Straw, Light 12:19 PM LABORATORY - Yellow, CDT CORE LAB Yellow Appearance Urine Clear Clear [facility] 04/24/2022 [facility] 12:19 PM LABORATORY - CDT CORE LAB Glucose Urine Negative Negative [facility] 04/24/2022 [facility] mg/dL 12:19 PM LABORATORY - CDT CORE LAB Bilirubin Urine Negative Negative [facility] 04/24/2022 [facility] 12:19 PM LABORATORY - CDT CORE LAB Ketones Urine Negative Negative JAK[facility] 04/24/2022 [facility] mg/dL 12:19 PM LABORATORY - CDT CORE LAB Specific Brackney 1.020 1.003 - JAK[facility] 04/24/2022 [facility] Urine 1.035 12:19 PM LABORATORY - CDT CORE LAB Blood Urine Negative Negative [facility] 04/24/2022 [facility] 12:19 PM LABORATORY - CDT CORE LAB pH Urine 5.0 5.0 - 7.0 [facility] 04/24/2022 [facility] 12:19 PM LABORATORY - CDT CORE LAB Protein Albumin Negative Negative [facility] 04/24/2022 [facility] Urine mg/dL 12:19 PM LABORATORY - CDT CORE LAB Urobilinogen Normal Normal, 2.0 [facility] 04/24/2022 [facility] Urine mg/dL 12:19 PM LABORATORY - CDT CORE LAB Nitrite Urine Negative Negative [facility] 04/24/2022 [facility] 12:19 PM LABORATORY - CDT CORE LAB Leukocyte Negative Negative [facility] 04/24/2022 [facility] Esterase Urine 12:19 PM LABORATORY - CDT CORE LAB Bacteria Urine None Seen None Seen 04/24/2022 [facility] 12:19 PM LABORATORY - CDT CORE LAB RBC Urine 0 <=2 /HPF 04/24/2022 [facility] 12:19 PM LABORATORY - CDT CORE LAB WBC Urine <1 <=5 /HPF 04/24/2022 [facility] 12:19 PM LABORATORY - CDT CORE LAB Specimen Anatomical Collection Method Collection Time Receive d Time (Source) Location / / Volume Laterality Urine MID-STREAM URINE Non-blood 04/24/2022 11:48 022 SPECIMEN / Unknown Collection / AM CDT 11:48 AM CDT Unknown Narrative [facility] LABORATORY - CORE LAB - 04/24/2022 12:19 PM CDT Urine Culture not indicated Margot Branham MD LAB - URINE ORDERABLES Performing Organization Address [facility]/State/[facility] Phon e Number [facility] LABORATORY - CORE LAB [facility] [place] [address] 1st Floor Lab Core Lab [facility] LABORATORY - CORE LAB [place], [place] [address] Clinics and Surgery [address] 1st Floor Lab Core Lab (ABNORMAL) Comprehensive metabolic panel (04/24/2022 11:01 AM CDT) [facility] Method Time Signature Sodium 141 133 - 144 04/24/2022 [facility] mmol/L 11:24 AM CDT LABORATORY - CORE LAB Potassium 4.5 3.4 - 5.3 04/24/2022 [facility] mmol/L 11:24 AM CDT LABORATORY - CORE LAB Chloride 109 94 - 109 04/24/2022 [facility] mmol/L 11:24 AM CDT LABORATORY - CORE LAB Carbon Dioxide 25 20 - 32 04/24/2022 [facility] (CO2) mmol/L 11:24 AM CDT LABORATORY - CORE LAB Anion Gap 7 3 - 14 04/24/2022 [facility] mmol/L 11:24 AM CDT LABORATORY - CORE LAB Urea Nitrogen 20 7 - 30 04/24/2022 [facility] mg/dL 11:24 AM CDT LABORATORY - CORE LAB Creatinine 0.75 0.52 - 04/24/2022 [facility] 1.04 mg/dL 11:24 AM CDT LABORATORY - CORE LAB Calcium 9.0 8.5 - 10.1 04/24/2022 [facility] mg/dL 11:24 AM CDT LABORATORY - CORE LAB Glucose 103 (H) 70 - 99 04/24/2022 [facility] mg/dL 11:24 AM CDT LABORATORY - CORE LAB Alkaline 77 40 - 150 04/24/2022 [facility] Phosphatase U/L 11:24 AM CDT LABORATORY - CORE LAB AST 22 0 - 45 U/L 04/24/2022 [facility] 11:24 AM CDT LABORATORY - CORE LAB ALT 25 0 - 50 U/L 04/24/2022 [facility] 11:24 AM CDT LABORATORY - CORE LAB Protein Total 6.9 6.8 - 8.8 04/24/2022 [facility] g/dL 11:24 AM CDT LABORATORY - CORE LAB Albumin 3.8 3.4 - 5.0 04/24/2022 [facility] g/dL 11:24 AM CDT LABORATORY - CORE LAB Bilirubin Total 0.5 0.2 - 1.3 04/24/2022 [facility] mg/dL 11:24 AM CDT LABORATORY - CORE LAB GFR Estimate 83 >60 04/24/2022 [facility] mL/min/1.7 11:24 AM CDT LABORATORY - 3m2 CORE LAB Comment: Effective September 23, 2021 eGF Rcr in adults is calculated using the 2020 CKD-EPI creatinine equation which includ es age and gender (Orthopedic Physical Therapist et al., NEJ, DOI: 10.1056/MEPJwm2805075) Specimen Anatomical Collection Method / Collection Time Recei yenny Time (Source) Location / Volume Laterality Blood STRUCTURE OF LEFT Venipuncture / 04/24/2022 11:01 04/04 UPPER LIMB / Unknown AM CDT 11:02 AM CDT Unknown Margot Branham MD LAB - BLOOD ORDERABLES Performing Organization Address City/State/ZIP Code Phon e Number [facility] LABORATORY - CORE LAB [facility] [place] [address] Floor Lab Core Lab [facility] LABORATORY - CORE LAB [place], [place] [address] Clinics and Surgery [address] Floor Lab Core Lab CRP inflammation [...] AM CDT 11:02 AM CDT Unknown Margot Branhma MD LAB - BLOOD ORDERABLES Performing Organization Address City/State/[facility] Code Phon e Number [facility] LABORATORY - CORE LAB [facility] Clinics [facility] [place] [address] Floor Lab Core Lab [facility] LABORATORY - CORE LAB [place], [place] [address] Clinics and Surgery [address] Floor Lab Core Lab Estradiol (04/24/2022 11:01 AM CDT) athologist Signature Estradiol <5 pg/mL 04/24/2022 6:10 [facility] LABORATORY PM CDT Comment: Healthy Men: 11.3-43.2 pg/mL Healthy Postmenopausal Women: Postmenopause: <5-138 pg/mL Healthy Women: 1st trimester: 154-3243 pg/mL 2nd trimester: 1561-32148 pg/mL 3rd trimester: 8525->30973 pg/mL Healthy Women Cycle Phase: Follicular: 30.9-90.4 [...] Address City/State/ZIP Code Phon e Number LABORATORY [facility] [place] [address] Lab [address] [facility] J Building, Room 3-580 TSH with free T4 reflex (04/24/2022 11:01 AM CDT) athologist Signature TSH 0.74 0.40 - 4.00 04/24/2022 [facility] LABORATORY mU/L 11:31 AM CDT - CORE LAB Specimen Anatomical Collection Method / Collection Time Recei yenny Time (Source) Location / Volume Laterality Blood STRUCTURE OF LEFT Venipuncture / 04/24/2022 11:01 04/04 UPPER LIMB / Unknown AM CDT 11:02 AM CDT Unknown Margot Branham MD LAB - BLOOD ORDERABLES Performing Organization Address City/State/ZIP Code Phon e Number [facility] LABORATORY - CORE LAB [facility] [place] [address] Lab Core Lab [facility] LABORATORY - CORE LAB [place], [place] [address] Clinics and Surgery [address] 1st Floor Lab Core Lab documented [...] documented as of this encounter Care Teams Fishing Boat Captain Relationship Specialty Start Date End Date Margot Branham MD PCP - General Internal Medicine 10/28/[address] [place] [address] Carlota Acuña MD MD Urology 04/10/[address] [place], [place] [phone] Michelle Montana, RN Registered Nurse Urology 05/07/17 Anh Costa, TECHNICIAN MEDICAL ARTIST Nurse Practitioner Nurse Practitioner 10/07 Martinez Galicia MD MD Ophthalmology 04/18/18 420 [place], [place] [phone] Sabino Romano DPM MD Podiatry 08/11/[address] [phone] Mehreen Johnston MD PhD MD Family Practice 11/15/[address] [place] [address] [phone] Margot Branham MD MD Internal Medicine 04/17/[address] [place] [address] [phone] Margot Branham MD Assigned PCP 09/15/[address] [place] [address] [phone] documented as of this encounter
--- OUTSIDE RECORDS SUMMARY | 2022-07-30 20:01 | XMS_ITS | Encounter Summary ---
:1945 Author Organization [place] Address [address] [place] [address]. [place] [address] Care Team Providers Name Role Phone Carlota Landeros MD Unavailable Michelle Montana RN Unavailable Anh Costa COUNSELING SPECIALIST MOTO MIX OPERATOR Unavailable Unavailable Martinez Galicia MD Unavailable Sabino Romano DPM Unavailable Mehreen Johnston MD PhD Unavailable [phone] LogeaMargot man MD Unavailable LogMargot sadler MD Unavailable LogMargot sadler MD Primary Care Provider Alonso Tejeda MD Unavailable Encounter Details Date Type Department Care Team Description 06/19/2022 Telephone [facility] Margot Branham MD Internal Medicine [address] [place] [address] [place] [address] 4th Floor [place], [place] [phone] Social History Tobacco Use [...] Office Visit Internal Medicine Margot Branham MD [address] [place] [address] [phone] (Wo rk) documented as of this encounter Visit Diagnoses Not on filedocumented in this encounter Additional Health Concerns Assessment Noted Time PHQ-9 Depression Total Score: 0 11/22/2019 10:49 AM CS T documented as of this encounter Care Teams Efficiency Engineer Relationship Specialty Start Date End Date Margot Branham MD PCP - General Internal Medicine 10/28/[address] [place] [address] [phone] Carlota Landeros MD MD Urology 04/10/[address] [place], [place] [address] Michelle Montana, MODESTA Registered Nurse Urology 05/07/17 Anh Costa APRN MOTO MIX OPERATOR Nurse Practitioner Nurse Practitioner 10/07 Martinez Galicia MD MD Ophthalmology 04/18/[address] [place] [address] [phone] Sabino Romano DPM MD Podiatry 08/11/18 [facility] [address] [phone] Mehreen Johnston MD PhD MD Family Practice 11/15/[address] [place] [address] [phone] Margot Branham MD MD Internal Medicine 04/17/[address] [place] [address] Margot [place] MD Assigned PCP 09/15/[address] [place] [address] [phone] Alonso Tejeda MD MD Internal Medicine 06/19/[address] [place] [address] [phone] documented as of this encounter
--- OUTSIDE RECORDS SUMMARY | 2022-07-30 20:01 | XMS_ITS | Encounter Summary ---
:1945 Author Organization [place] Address [address] [place] [address]. [place] [address] Care Team Providers Name Role Phone Carlota Landeros MD Unavailable Michelle Montana RN Unavailable Anh Costa HUMAN RESOURCE CONSULTANT FACE BURLER Unavailable Unavailable Martinez Galicia MD Unavailable Sabino Romano DPM Unavailable Mehreen Johnston MD PhD Unavailable [phone] LogeaDeep man MD Unavailable LogeaDeep man MD Unavailable LogDeep sadler MD Primary Care Provider Reason for Visit Reason Onset Date Comments Medication Question 01/22/2022 Encounter Details Date Type Department Care Team Description 01/22/2022 Telephone [facility] Urgent Mae Wilkinson, Medication Question Care [place] [employer]ANUT SALTER [address] [place] [address] 55 [phone] Social History Tobacco Use Types Packs/Day Years [...] or medication refill: Do you use a [facility]? Name of the pharmacy and phone number for the current request: [facility] Drug Name of the medication requested: fluconazole 150mg Other request: refill request for this medication Can we leave a detailed message on this number? YES Phone number patient can be reached at: Other phone number: [phone] Best Time: anytime. fax script or call pharmacist Call taken on 01/22/2022 at 5:22 PM by Kenyatta Kruse documented in this encounter Plan of Treatment Upcoming Encounters Date Type Specialty Care Team Description 09/10/2022 Office Visit Internal Medicine Deep Branham MD [address] [place] [phone] (Wo rk) documented as of this encounter Visit Diagnoses Diagnosis Antibiotic-induced yeast infection - Kristina deep documented in this encounter Additional Health Concerns Assessment Noted Time PHQ-9 Depression Total Score: 0 11/22/2019 10:49 AM CS T documented as of this encounter Care Teams Underwater Trapper Relationship Specialty Start Date End Date Deep Branham MD PCP - General Internal Medicine 10/28/[address] [place] [phone] Carlota Landeros MD MD Urology 04/10/[address] [place], [place] [phone] Michelle Montana, RN Registered Nurse Urology 05/07/17 Anh Costa, HUMAN RESOURCE CONSULTANT FACE BURLER Nurse Practitioner Nurse Practitioner 10/07 Martinez Galicia MD MD Ophthalmology 04/18/18 420 [place], [place] [phone] Sabino Romano DPM MD Podiatry 08/11/[address] [phone] Mehreen Johnston MD PhD MD Family Practice 11/15/[address] [place] [address] [phone] Deep Branham MD MD Internal Medicine 04/17/[address] [place] [address] [phone] Deep Branham MD Assigned PCP 09/15/[address] [place] [address] [phone] documented as of this encounter
--- OUTSIDE RECORDS SUMMARY | 2022-07-30 20:01 | XMS_ITS | Encounter Summary ---
:1945 Author Organization [place] Address [address] [place] [address]. [place] [address] Care Team Providers Name Role Phone Carlota Landeros MD Unavailable Michelle Montana RN Unavailable Anh Costa FLOOR SERVICE WORKER [employer] Unavailable Unavailable Martinez Galicia MD Unavailable Sabino Romano DPM Unavailable Mehreen Johnston MD PhD Unavailable [phone] LogeaMargot man MD Unavailable LogMargot sadler MD Unavailable LogMargot sadler MD Primary Care Provider Encounter Details Date Type Department Care Team Description 10/17/2021 Orders Only [facility] Lisa Nur MD Urinary tract Urgent Care [place] [address] [place] [address] hematuria, site [address] [facility] unspecified (Primary [place], [place] Dx) [phone] Social History Tobacco Use Types Packs/Day Years [...] with No / Unsure 10/13/2021 4:17 PM RELAY MOTORMAN someone who was confirmed or suspected to have Coronavirus / COVID-19? documented as of this encounter Plan of Treatment Upcoming Encounters Date Type Specialty Care Team Description 09/10/2022 Office Visit Internal Medicine Margot Branham MD [address] [place] [address] [phone] (Wo rk) documented as of this encounter Visit Diagnoses Diagnosis Urinary tract infection without hematuri a, site unspecified - Primary documented in this encounter Additional Health Concerns Assessment Noted Time PHQ-9 Depression Total Score: 0 11/22/2019 10:49 AM CS T documented as of this encounter Care Teams Nozzle And Sleeve Worker Relationship Specialty Start Date End Date Margot Branham MD PCP - General Internal Medicine 10/28/[address] [place] [phone] Carlota Landeros MD MD Urology 04/10/[address] [place] [address] Michelle Montana, RN Registered Nurse Urology 05/07/17 Anh Costa APRN ADMINISTRATION INTERNSHIP Nurse Practitioner Nurse Practitioner 10/07 Martinez Galicia MD MD Ophthalmology 04/18/18 420 [place], [place] [phone] Sabino Romano DPM MD Podiatry 08/11/18 [facility] [address] [phone] Mehreen Johnston MD PhD MD Family Practice 11/15/[address] [place] [address] [phone] Margot Branham MD MD Internal Medicine 04/17/[address] [place] [phone] Margot Branham MD Assigned PCP 09/15/[address] [place] [address] [phone] documented as of this encounter
--- OUTSIDE RECORDS SUMMARY | 2022-07-30 20:01 | XMS_ITS | Encounter Summary ---
:1945 Author Organization [place] Address [address] [place] [address]. [place] [address] Care Team Providers Name Role Phone Carlota Landeros MD Unavailable Michelle Montana RN Unavailable Anh Costa INFORMATION TECHNOLOGY ACCOUNT MANAGER SALES ORDER PROCESSOR Unavailable Unavailable Martinez Galicia MD Unavailable Sabino Romano DPM Unavailable Mehreen Johnston MD PhD Unavailable [phone] LogeaMargot man MD Unavailable LogMargot sadler MD Unavailable LogMargot sadler MD Primary Care Provider Encounter Details Date Type Department Care Team Description 10/30/2021 Lab [facility] Lab Hyperl ipidemia LDL goal <100 [place] [phone] Social History Tobacco Use Types Packs/Day [...] with No / Unsure 10/30/2021 8:37 AM TRAFFIC COORDINATOR someone who was confirmed or suspected to have Coronavirus / COVID-19? documented as of this encounter Plan of Treatment Upcoming Encounters Date Type Specialty Care Team Description 09/10/2022 Office Visit Internal Medicine LogMargot sadler MD [address] [address] (Wo rk) documented as of this encounter Procedures Procedure Name Priority Date/Time Associated Diagnosis Comme nts LIPID REFLEX TO Routine 10/30/2021 10:04 Hyperlipidemia LDL go al Results for this DIRECT LDL PANEL AM TRAFFIC COORDINATOR <100 procedure a re in the results section. documented in this encounter Results Lipid panel reflex to direct LDL Fasting (10/30/2021 10:04 AM TRAFFIC COORDINATOR) [facility] gist Method Time Signature Cholesterol 159 <200 mg/dL 10/30/2021 [facility] 10:30 AM TRAFFIC COORDINATOR LABORATORY - CORE LAB Triglycerides 89 <150 mg/dL 10/30/2021 [facility] 10:30 AM TRAFFIC COORDINATOR LABORATORY - CORE LAB Direct Measure HDL 83 >=50 mg/dL 10/30/2021 [facility] 10:30 AM TRAFFIC COORDINATOR LABORATORY - CORE LAB LDL Cholesterol 58 <=100 10/30/2021 [facility] Calculated mg/dL 10:30 AM TRAFFIC COORDINATOR LABORATORY - CORE LAB Non HDL 76 <130 mg/dL 10/30/2021 [facility] Cholesterol 10:30 AM TRAFFIC COORDINATOR LABORATORY - CORE LAB Patient Fasting > Yes 10/30/2021 [facility] 8hrs? 10:30 AM TRAFFIC COORDINATOR LABORATORY - CORE LAB Specimen Anatomical Collection Method / Collection Time Recei yenny Time (Source) Location / Volume Laterality Blood STRUCTURE OF LEFT Venipuncture / 10/30/2021 10:04 10/05 UPPER LIMB / Unknown AM TRAFFIC COORDINATOR 10:04 AM TRAFFIC COORDINATOR Unknown Narrative [facility] LABORATORY - CORE LAB - 10/30/2021 10:30 AM TRAFFIC COORDINATOR Cholesterol Desirable: ??<200 mg/dL Triglycerides Normal: ??Less [...] Organization Address City/State/ZIP Code Phon e Number [facility] LABORATORY - CORE LAB [facility] [place] [address] 1st Floor Lab Core Lab [facility] LABORATORY - CORE LAB [place], [place] [address] Clinics and Surgery [place] - [address] Floor Lab Core Lab documented in this encounter Visit Diagnoses Diagnosis Hyperlipidemia LDL goal <100 Other and unspecified hyperlipidemia documented in this encounter Additional Health Concerns Assessment Noted Time PHQ-9 Depression Total Score: 0 11/22/2019 10:49 AM CS T documented as of this encounter Care Teams Computer Numerical Control Grinder Relationship Specialty Start Date End Date Margot Branham MD PCP - General Internal Medicine 10/28/[address] [place] [address] [phone] Carlota Landeros MD MD Urology 04/10/[address] [place], [place] [address] Michelle Montana RN Registered Nurse Urology 05/07/17 Anh Costa APRN SALES ORDER PROCESSOR Nurse Practitioner Nurse Practitioner 10/07 Martinez Galicia MD MD Ophthalmology 04/18/18 420 [place], [place] [phone] Sabino Romano DPM MD Podiatry 08/11/[address] [phone] Mehreen Johnston MD PhD MD Family Practice 11/15/[address] [place] [address] [phone] Margot Branham MD MD Internal Medicine 04/17/[address] [place] [address] [phone] Margot Branham MD Assigned PCP 09/15/[address] [place] [address] [phone] documented as of this encounter
--- OUTSIDE RECORDS SUMMARY | 2022-07-30 20:01 | XMS_ITS | Encounter Summary ---
:1945 Author Organization [place] Address [address] [place] [address]. [place] [address] Care Team Providers Name Role Phone Carlota Landeros MD Unavailable Michelle Montana RN Unavailable Anh Costa SENIOR ELECTRICAL PROJECT MANAGER CORE DRILLER HELPER Unavailable Unavailable Martinez Galicia MD Unavailable Sabino Romano DPM Unavailable Mehreen Johnston MD PhD Unavailable [phone] LogeaMargot man MD Unavailable LogMargot sadler MD Unavailable LogMargot sadler MD Primary Care Provider Alonso Tejeda MD Unavailable Reason for Visit Reason Comments Derm Problem Itchy red spots on chest, ar ms, back. Started yesterday. May be insect bites. Patient has been outs genevieve a lot with puppy recently. Encounter Details Date Type Department Care Team Description 06/19/2022 Office Visit [facility] Brii Tejeda MD Rash (Primary Dx) Internal Medicine [address] [place] [address] [place] [address] Social History Tobacco Use Types [...] topically 2 times daily Alonso Tejeda MD [facility] CHIGNIK LAGOON Shaila Greene is a 76 year old, [...] 2:10 PM on 06/19/2022. Primary Care Clinic: [phone] documented in this encounter Plan of Treatment Upcoming Encounters Date Type Specialty Care Team Description 09/10/2022 Office Visit Internal Medicine Logeais, MD Margot [address] [phone] (Wo rk) documented as of this encounter Procedures Procedure Name Priority Date/Time Associated Comments Diagnosis ORTHOPOXVIRUS Routine 06/19/2022 2:43 PM Rash Results for this (INCLUDES MONKEYPOX) CDT procedu re are in BY PCR the results section. documented in this encounter Results Orthopoxvirus (includes monkeypox) by PCR (06/19/2022 2:43 PM CDT) [facility] Method Time Signature Orthopoxvirus by Not Detected 06/24/2022 en-Gauge PCR 10:02 AM CDT Comment: NOT DETECTED [...] and its performa nce characteristics determined by [facility]. It has not been cleared or approved by the US Food and Drug Adminis tration. This test was performed in a CLIA certified labora tory and is intended for clinical purposes. Performed by [facility], [address] [place] [address] [email or web address], Timbo Robertson MD, PHD, Lab. Director Specimen Anatomical Collection Method Collection Time Receive d Time (Source) Location / / Volume Laterality Swab STRUCTURE OF LEFT Non-blood 06/19/2022 2:43 PM 06/04 2:54 UPPER LIMB / Collection / CDT PM CDT Unknown Unknown Alonso Tejeda MD LAB - MICRO GENERAL ORDERABL ES Performing Organization Address City/State/ZIP Code Phon e Number [facility] [place], [place] [phone] [address] [facility] [address] documented in this encounter Visit Diagnoses Diagnosis Rash - Primary Rash and other nonspecific skin eruption documented in this encounter Additional Health Concerns Assessment Noted Time PHQ-9 Depression Total Score: 0 11/22/2019 10:49 AM CS T documented as of this encounter Care Teams Photo Finish Photographer Relationship Specialty Start Date End Date Margot Branham MD PCP - General Internal Medicine 10/28/[address] [phone] Carlota Landeros MD MD Urology 04/10/[address] [place], [place] [phone] Michelle Montana, RN Registered Nurse Urology 05/07/17 Anh Costa APRN CORE DRILLER HELPER Nurse Practitioner Nurse Practitioner 10/07 Martinez Galicia MD MD Ophthalmology 04/18/18 420 [place], [place] [phone] Sabino Romano DPM MD Podiatry 08/11/[address] [phone] Mehreen Johnston MD PhD MD Family Practice 11/15/19 909 [place], [place] 0255[address] Margot Branham MD MD Internal Medicine 04/17/[address] [place] [address] [phone] Margot Branham MD Assigned PCP 09/15/[address] [place] [address] [phone] Alonso Tejeda MD MD Internal Medicine 06/19/[address] [place] [address] [phone] documented as of this encounter
--- OUTSIDE RECORDS SUMMARY | 2022-07-30 20:01 | XMS_ITS | Encounter Summary ---
:1945 Author Organization [place] Address [address] [place] [address]. [place] [address] Care Team Providers Name Role Phone Carlota Landeros MD Unavailable Michelle Montana RN Unavailable Anh Costa CLUB STEWARD PASTRY SOUS CHEF Unavailable Unavailable Martinez Galicia MD Unavailable Sabino Romano DPM Unavailable Mehreen Johnston MD PhD Unavailable [phone] LogeaMargot man MD Unavailable LogeaMargot man MD Unavailable LogMargot sadler MD Primary Care Provider Reason for Visit Reason Comments Urgent Care Pt in clinic to have eval fo r dysuria and frequency. Dysuria Encounter Details Date Type Department Care Team Description 01/06/2022 Office Visit [facility] Fela Gomez, Dysuria (Primary Dx); Urgent Care [facility] OLIVEROS Acute cystitis without hematuria [address] 2155 [facility] [address] [place] [phone] Social History Tobacco Use Types Packs/Day Years [...] Negative Ketones Urine Negative Negative mg/dL Specific [place] Urine 1.025 1.003 - 1.035 Blood Urine [...] 150 mg by mouth ??? nystatin (MYCOSTATIN) [id number] UNIT/GM external cream Apply topically 2 times [...] ??? Myocardial Infarction Maternal Grandfather 82 of [place] ??? Hypertension Maternal Grandfather ??? Cardiovascular Paternal [...] Exam (Note was completed, in part, with [employer] voice-recognition software. Documentation reviewed, but some grammatical, spelling, and word errors may remain.) Fela Gomez MD documented in this encounter Plan of Treatment Upcoming Encounters Date Type Specialty Care Team Description 09/10/2022 Office Visit Internal Medicine Logeais, MD Margot [address] [place] [address] [place], [place] [phone] (Wo rk) documented as of this encounter [...] Code Phon e Number [facility] [place] [address] [facility], Room D297 (ABNORMAL) Urine Microscopic Exam [...] City/State/ZIP Code Phon [place] [address] [phone] [facility] [facility]no room number, 1st floor of clinic) [place] [address], [facility] [facility] (no room number, 1st floor of clinic) (ABNORMAL) UA macro with reflex to Microscopic and Culture - Clinc Collect (01/06/2022 4:05 PM CDT) [facility] Method Time Signature Color Urine Yellow Colorless, 01/06/2022 [facility] St[place], 4:19 PM CDT Light Yellow, Yellow Appearance Urine Clear Clear 01/06/2022 [facility] Y 4:19 PM CDT Glucose Urine Negative Negative 01/06/2022 [facility] mg/dL 4:19 PM CDT Bilirubin Urine Negative Negative 01/06/2022 [facility] 4:19 PM CDT Ketones Urine Negative Negative 01/06/2022 [facility] mg/dL 4:19 PM CDT Specific [place] 1.025 1.003 - 01/06/2022 [facility] Y [...] Address City/State/ZIP Code [place] [phone] [facility] [address] [facility] (no room number, 1st floor of clinic) [place] [address], [facility] [phone] [facility] Lab [address] [place] Lab (no room number, 1st floor of clinic) documented in this encounter Visit Diagnoses Diagnosis Dysuria - Primary Acute cystitis without hematuria Acute cystitis documented in this encounter Additional Health Concerns Assessment Noted Time PHQ-9 Depression Total Score: 0 11/22/2019 10:49 AM CS T documented as of this encounter Care Teams Tetryl Wringer Operator Relationship Specialty Start Date End Date Margot Branham MD PCP - General Internal Medicine 10/28/[address] [place] [address] [phone] Carlota Landeros MD MD Urology 04/10/[address] [place], [place] [address] Michelle Montana, MODESTA Registered Nurse Urology 05/07/17 Anh Costa APRN PASTRY SOUS CHEF Nurse Practitioner Nurse Practitioner 10/07 Martinez Galicia MD MD Ophthalmology 04/18/18 420 [place], [place] [phone] Sabino Romano DPM MD Podiatry 08/11/[address] [place] [phone] Mehreen Johnston MD PhD MD Family Practice 11/15/[address] [place] [address] [phone] Margot Branham MD MD Internal Medicine 04/17/[address] [place] [address] [phone] Margot Branham MD Assigned PCP 09/15/[address] [place] [address] [phone] documented as of this encounter
--- OUTSIDE RECORDS SUMMARY | 2022-07-30 20:01 | XMS_ITS | Encounter Summary ---
:1945 Author Organization [place] Address [address] [place] [address]. [place] [address] Care Team Providers Name Role Phone Carlota Acuña MD Unavailable Michelle Montana RN Unavailable Anh Costa TECHNICAL SALES SUPPORT SPECIALIST IP LITIGATION PARALEGAL Unavailable Unavailable Martinez Galicia MD Unavailable Sabino Romano DPM Unavailable Mehreen Johnston MD PhD Unavailable [phone] Margot Branham MD Unavailable Margot Branham MD Unavailable Margot Branham MD Primary Care Provider Reason for Referral Diagnostic Imaging Mammo (Routine) - Pending Review Specialty Diagnoses / Procedures Referred By Contact Refer red To Contact Diagnoses Encounter for screening mammogram for breast cancer Margot Branham MD Procedures Mammogram, screening w billy (3D) [address] 18 5 Referral ID Status Reason Start Date Expiration Date Visits V isits Requested Authorized [id number] Pending 10/30/2021 10/30/2022 1 1 Review D MEMBER Reason for Visit Reason Comments Physical Annual Visit Encounter Details Date Type Department Care Team Description 10/30/2021 Office Visit [facility] Logeais, Margot, Encounte r for screening mammogram for breast cancer (Primary Dx); Clinic Internal Atrophic vaginitis; Medicine [place] 909 [facility] Screen for colon cancer; [address] [facility] [address] [place] Seasonal allergies; 4th Floor [place], [place] Chronic rhinitis; [place] [address] Vaginal dryness; [phone] Recurrent cold sores; Vitamin D deficiency; [phone] Essential hyper tension; (Fax) Hyperlipidemia LDL goal [...] with No / Unsure 10/30/2021 8:37 AM BOARD MEMBER someone who was confirmed or suspected to have Coronavirus / COVID-19? documented as of this encounter Last Filed Vital Signs Vital Sign Reading Time Taken Comments Blood Pressure 121/68 10/30/2021 8:49 AM BOARD MEMBER Pulse 64 10/30/2021 8:49 AM BOARD MEMBER Temperature - - Respiratory Rate 16 10/30/2021 8:49 AM BOARD MEMBER Oxygen Saturation 99% 10/30/2021 8:49 AM BOARD MEMBER Inhaled Oxygen Concentration - - Weight 67.4 kg (148 lb 11.2 oz) 10/30/2021 8:49 AM BOARD MEMBER Height 169.5 cm (5' 6.75) 10/30/2021 8:49 AM BOARD MEMBER Body Mass Index 23.46 10/30/2021 8:49 AM BOARD MEMBER documented in this encounter Patient Instructions Patient [...] Out ??? HEPATITIS B IMMUNIZATION Aged Out D MEMBER documented in this encounter Progress Notes Mragot Branham MD - 10/30/2021 9:00 AM CST [...] upper back pain. She does follow at [facility]. Gets hyaluronic acid injections in [...] not smoker Colonoscopy (45-75 yrs): Last 05/18 [facility], normal, no specimens Dexa (>65W or 70M yrs): due 06/25 at [facility] Mammogram (40-75 yrs): 06/22 here, otherwise at [facility], due Pap (21-65 yrs): Lab Results Component [...] magnesium 100 MG CAPS ??? nystatin (MYCOSTATIN) [id number] UNIT/GM external cream ??? omega 3 1000 [...] affect and mood Diagnostics: Labs reviewed in [facility] Assessment and Plan: Yamileth was seen [...] - Pneumococcal vaccine 23 valent PPSV23 (Pneumovax) [28044] Margot Branham MD Internal Medicine >30 minutes spent today performing chart review, history and exam, documentation and further activities as noted above. Taran Delatorre - 10/30/2021 9:00 AM CST Yamileth Sheikh received the [id number] vaccine today in clinic at the request [...] was given. [facility] for[facility]. MARILOU Steward at 9:53 [...] seen a hearing professional such as an lead slot technician in the past year? Yes 20. Do [...] MARILOU Steward at 10:00 AM on 10/30/2021 D MEMBER documented in this encounter Nursing Notes Taran [...] MARILOU Steward at 8:49 AM on 10/30/2021 D MEMBER documented in this encounter Plan of Treatment Upcoming Encounters Date Type Specialty Care Team Description 09/10/2022 Office Visit Internal Medicine LogeaisMargot MD [address] [place] [address] [phone] (Wo rk) Scheduled Orders Name Type Priority Associated Diagnoses Order S chedule Mammogram, screening w Imaging Routine Encounter for scre ening Expected: 10/30/2021 billy (3D) mammogram for breast (Approx imate), cancer Expires: 2022 documented as of this encounter Results Lipid panel reflex to direct LDL Fasting (10/30/2021 10:04 AM BOARD MEMBER) [facility] Time Signature Cholesterol 159 <200 mg/dL 10/30/2021 [facility] 10:30 AM [facility] - CORE LAB Triglycerides 89 <150 mg/dL 10/30/2021 [facility] 10:30 AM [facility] - CORE LAB Direct Measure HDL 83 >=50 mg/dL 10/30/2021 [facility] 10:30 AM BOARD MEMBER LABORATORY - CORE LAB LDL Cholesterol 58 <=100 10/30/2021 [facility] Calculated mg/dL 10:30 AM BOARD MEMBER LABORATORY - CORE LAB Non HDL 76 <130 mg/dL 10/30/2021 [facility] Cholesterol 10:30 AM BOARD MEMBER LABORATORY - CORE LAB Patient Fasting > Yes 10/30/2021 [facility] 8hrs? 10:30 AM BOARD MEMBER LABORATORY - CORE LAB Specimen Anatomical Collection Method / Collection Time Recei yenny Time (Source) Location / Volume Laterality Blood STRUCTURE OF LEFT Venipuncture / 10/30/2021 10:04 10/05 UPPER LIMB / Unknown AM BOARD MEMBER 10:04 AM BOARD MEMBER Unknown Narrative [facility] LABORATORY - CORE LAB - 10/30/2021 10:30 AM BOARD MEMBER Cholesterol Desirable: ??<200 mg/dL Triglycerides Normal: ??Less [...] LAB - BLOOD ORDERABLES Performing Organization Address City/State/[facility] Phon e Number [facility] LABORATORY - CORE LAB [facility] [place] [address] [place] [address] Floor Lab Core Lab [facility] LABORATORY - CORE LAB [place], [place] [address] Clinics and Surgery [place] - [address] 1st Floor Lab Core Lab documented [...] as of this encounter Care Teams Mill Labor Supervisor Relationship Specialty Start Date End Date Margot Branham MD PCP - General Internal Medicine 10/28/[address] [place] [address] [phone] Carlota Acuña MD MD Urology 04/10/[address] [place], [place] [address] Michelle Montana RN Registered Nurse Urology 05/07/17 Anh Costa APRN IP LITIGATION PARALEGAL Nurse Practitioner Nurse Practitioner 10/07 Martinez Galicia MD MD Ophthalmology 04/18/[address] [place] [address] [phone] Sabino Romano DPM MD Podiatry 08/11/[address] [place] [phone] Mehreen Johnstno MD PhD MD Family Practice 11/15/[address] [place] [address] [phone] Margot Branham MD MD Internal Medicine 04/17/[address] [place] [address] 107505 Margot Branham MD Assigned PCP 09/15/[address] [address] documented as of this encounter
--- OUTSIDE RECORDS SUMMARY | 2022-07-30 20:01 | XMS_ITS | Encounter Summary ---
:1945 Author Organization [facility] Address [address] [place] [address]. [place] [address] Care Team Providers Name Role Phone Carlota Landeros MD Unavailable Michelle Montana RN Unavailable Anh Costa SUPERVISOR MAIL CARRIERS SENIOR QUALITY MANAGER Unavailable Unavailable Martinez Galicia MD Unavailable Sabino Romano DPM Unavailable Mehreen Johnston MD PhD Unavailable [phone] LogMargot sadler MD Unavailable Margot Branham MD Unavailable Margot Branham MD Primary Care Provider Alonso Tejeda MD Unavailable Reason for Visit Reason Onset Date Comments Pain 07/16/2022 L breast pain Encounter Details Date Type Department Care Team Description 07/16/2022 Telephone [facility] Margot Branham MD Pain (L breast pain) Internal Medicine [address] 909 [place], [place] 4th Floor [address] [place], [place] [phone] (Wo rk) [address] [phone] Social History Tobacco Use Types Packs/Day Years [...] Latricia Low - 07/16/2022 2:47 PM CDT [facility] Call Center Phone Message May a [...] Visit Internal Medicine Margot Branham MD [address] [place] [address] [phone] (Wo rk) documented as of this encounter Visit Diagnoses Not on filedocumented in this encounter Additional Health Concerns Assessment Noted Time PHQ-9 Depression Total Score: 0 11/22/2019 10:49 AM CS T documented as of this encounter Care Teams Scallop Raker Relationship Specialty Start Date End Date Margot Branham MD PCP - General Internal Medicine 10/28/[address] [place] [address] [phone] Carlota Landeros MD MD Urology 04/10/[address] [place], [place] [address] Michelle Montana, MODESTA Registered Nurse Urology 05/07/17 Anh Costa APRN SENIOR QUALITY MANAGER Nurse Practitioner Nurse Practitioner 10/07 Martinez Galicia MD MD Ophthalmology 04/18/[address] [place] [address] [phone] Sabino Romano DPM MD Podiatry 08/11/[address] [phone] Mehreen Johnston MD PhD MD Family Practice 11/15/[address] [place] [address] [phone] Margot Branham MD MD Internal Medicine 04/17/[address] [place] [address] [phone] Margot Branham MD Assigned PCP 09/15/[address] [place] [address] [phone] Alonso Tejeda MD MD Internal Medicine 06/19/[address] [place] [phone] documented as of this encounter
--- OUTSIDE RECORDS SUMMARY | 2022-07-30 20:01 | XMS_ITS | Encounter Summary ---
:1945 Author Organization [place] Address [address] [place] [address]. [place] [address] Care Team Providers Name Role Phone Carlota Landeros MD Unavailable Michelle Montana RN Unavailable Anh Costa SPRING COILING MACHINE SETTER ENGINE SERVICE REPAIRER Unavailable Unavailable Martinez Galicia MD Unavailable Sabino Romano DPM Unavailable Mehreen Johnston MD PhD Unavailable [phone] Margot Branham MD Unavailable Margot Branham MD [...] Office Visit Internal Medicine LogeaMargot man MD [address] [place] [address] (Wo rk) documented as of this encounter Visit Diagnoses Not on filedocumented in this encounter Additional Health Concerns Assessment Noted Time PHQ-9 Depression Total Score: 0 11/22/2019 10:49 AM CS T documented as of this encounter Care Teams Marker Hand Relationship Specialty Start Date End Date Margot Branham MD PCP - General Internal Medicine 10/28/[address] [place] [address] Carlota Landeros MD MD Urology 04/10/[address] [place] [address] Michelle Montana, RN Registered Nurse Urology 05/07/17 Anh Costa APRN ENGINE SERVICE REPAIRER Nurse Practitioner Nurse Practitioner 10/07 Martinez Galicia MD MD Ophthalmology 04/18/18 420 [place] [address] Sabino Romano DPM MD Podiatry 08/11/[address] [phone] Mehreen Johnston MD PhD MD Family Practice 11/15/[address] [place] [address] Margot Branham MD MD Internal Medicine 04/17/[address] [place] [address] Margot Branham MD Assigned PCP 09/15/[address] [place] [address]34 documented as of this encounter
--- OUTSIDE RECORDS SUMMARY | 2022-07-30 20:01 | XMS_ITS | Clinical Summary ---
:1945 Author Organization [place] Address [address] [place] [address]. 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 04/20/2018 Overview: Overview: Added automatically from request for tiffanie wick [phone] ACP (advance care planning) 04/15/2015 Overview: Advance [...] Maternal Grandfather Myocardial Infarction Maternal Grandfather of [place] Cancer Maternal Grandmother of pancreatic cancer Hypertension [...] Visit Internal Medicine Logeais, MD Margot [address] [phone] (Wo rk) Health Maintenance Due Date Last [...] this topic Medical Devices Implanted Type Area Paper Products Supervisor Device Shelf Model / Identifier Expiration Serial / Lot Date Eye Imp Iol [place] Pcl Tecnis Zcb00 20.0 Lens/Eye Right: Eye ADVANCED 04/01/2022 ZCB00 20.0 / Implanted: Qty: 1 on 07/18/2018 by Martinez Galicia MD at [facility] Implant MEDICAL OPT [id number] / Eye Imp Iol [place] Pcl Tecnis Zcb00 21.5 Lens/Eye Left: Eye ADVANCED 03/18/2022 ZCB00 21.5 / Implanted: Qty: 1 on 07/25/2018 by Martinez Galicia MD at [facility] Implant MEDICAL OPT [id number] / Stimulator Neuro Inter-Stim Ii 3058 Neurology Left: [employer] 07/01/2018 3058 / Implanted: Qty: 1 on 04/27/2017 by Carlota Landeros MD at [facility] device Buttocks [id number] / Loan Servicing Specialist Interstim 3037 [employer] 3037 / Implanted: Qty: 1 on 05/19/2011 at [facility] / [id number] Description: not an implant Sling Urology Mini Arc Precise [id number] N/A: Urethra [employer] SYSTEMS 01/01/2018 [id number] / Implanted: Qty: 1 on 03/26/2015 by Eliu Styles MD at [facility] / [id number] Procedures Procedure Name Priority Date/Time Associated Comments Diagnosis ORTHOPOXVIRUS Routine 06/19/2022 2:43 PM Rash Results for this (INCLUDES MONKEYPOX) CDT procedu re are in BY PCR the results section. from Last 3 Months Results Orthopoxvirus (includes monkeypox) by PCR (06/19/2022 2:43 PM CDT) [facility] Method Time Signature Orthopoxvirus by Not Detected 06/24/2022 [facility] PCR 10:02 AM CDT Comment: NOT [...] and its performa nce characteristics determined by [facility]. It has not been cleared or approved by the US Food and Drug Adminis tration. This test was performed in a CLIA certified labora tory and is intended for clinical purposes. Performed by [facility], [address] [place] [address] [email or web address], Timbo Robertson MD, PHD, Lab. Director Specimen Anatomical Collection Method Collection Time Receive d Time (Source) Location / / Volume Laterality Swab STRUCTURE OF LEFT Non-blood 06/19/2022 2:43 PM 06/04 2:54 UPPER LIMB / Collection / CDT PM CDT Unknown Unknown Alonso Tejeda MD LAB - MICRO GENERAL ORDERABL ES Performing Organization Address City/State/ZIP Code Phon e Number [place], [place] [phone] [address] [facility] [address] from Last 3 Months Insurance Payer Benefit Plan / Subscriber ID Effective Phone Address T ype Group Dates [place] [id number] 2021-Prese [phone] [address] 53 [facility] nt [address] [place], [place] ADVANTAGE [address] Kori,Yamileth Personal/Famil Self 1945 [address] (Home) [place] [address] Advance Directives For more information, please contact: [phone] Documents on File Type Date Recorded Patient Fiberglass Finisher Explanati on Advance Directives and 01/21/2016 8:13 AM Health Care Directive Living Will 12-23-15 Advance Directives and 03/28/2015 6:01 AM HEALTH CARE DIRECTIVE Living Will 12-11-2010 Power of Sharepoint Trainer 03/27/2015 8:49 PM POWER OF AT [place] 12/11/10 Care Teams Telegraphic Service Dispatcher Relationship Specialty Start Date End Date Margot Branham MD PCP - General Internal Medicine 10/28/[address] [place] [address] [phone] Carlota Landeros MD MD Urology 04/10/[address] [place], [place] [address] Michelle Montana, MODESTA Registered Nurse Urology 05/07/17 Anh Costa APRN JET WORKER Nurse Practitioner Nurse Practitioner 10/07 Martinez Galicia MD MD Ophthalmology 04/18/18 420 [place], [place] [address] Sabino Romano DPM MD Podiatry 08/11/[address] [phone] Mehreen Johnston MD PhD MD Family Practice 11/15/[address] [place] [address] [phone] Margot Branham MD MD Internal Medicine 04/17/[address] [place] [address] [phone] Margot Branham MD Assigned PCP 09/15/[address] [place] [address] [phone] Alonso Tejeda MD MD Internal Medicine 06/19/[address] [place] [address]
--- OUTSIDE RECORDS SUMMARY | 2022-07-30 20:01 | XMS_ITS | Encounter Summary ---
:1945 Author Organization [place] Address [address] [place] [address]. [place] [address] Care Team Providers Name Role Phone Carlota Landeros MD Unavailable Michelle Montana RN Unavailable Anh Costa STATISTICS PROFESSOR ELECTRON GUN ASSEMBLER Unavailable Unavailable Martinez Galicia MD Unavailable Sabino Romano DPM Unavailable Mehreen Johnston MD PhD Unavailable [phone] Margot Branham MD Unavailable Margot Branham MD [...] Office Visit Internal Medicine LogeaMargot man MD [address] [place] [phone] (Wo rk) documented as of this encounter Visit Diagnoses Not on filedocumented in this encounter Additional Health Concerns Assessment Noted Time PHQ-9 Depression Total Score: 0 11/22/2019 10:49 AM CS T documented as of this encounter Care Teams Meteorological Equipment Repairer Relationship Specialty Start Date End Date Margot Branham MD PCP - General Internal Medicine 10/28/[address] [place] [address] Carlota Landeros MD MD Urology 04/10/[address] [place] [address] Michelle Montana, RN Registered Nurse Urology 05/07/17 Anh Costa APRN ELECTRON GUN ASSEMBLER Nurse Practitioner Nurse Practitioner 10/07 Martinez Galicia MD MD Ophthalmology 04/18/18 [address] [place] [address] Sabino Romano DPM MD Podiatry 08/11/[address] [phone] Mehreen Johnston MD PhD MD Family Practice 11/15/[address] [place] [address] Margot Branham MD MD Internal Medicine 04/17/[address] [place] [address] Margot Branham MD Assigned PCP 09/15/[address] [place] [address] documented as of this encounter
--- OUTSIDE RECORDS SUMMARY | 2022-07-30 20:01 | XMS_ITS | Encounter Summary ---
:1945 Author Organization [place] Address [address] [place] [address]. [place] [address] Care Team Providers Name Role Phone Carlota Landeros MD Unavailable Michelle Montana RN Unavailable Anh Costa CHECK PILOT NUTRITION CLUB AMBASSADOR Unavailable Unavailable Martinez Galicia MD Unavailable Sabino Romano DPM Unavailable Mehreen Johnston MD PhD Unavailable [phone] LogMargot sadler MD Unavailable Margot Branham [...] Office Visit Internal Medicine LogeaMargot man MD [address] [place] [phone] (Wo rk) documented as of this encounter Visit Diagnoses Not on filedocumented in this encounter Additional Health Concerns Assessment Noted Time PHQ-9 Depression Total Score: 0 11/22/2019 10:49 AM CS T documented as of this encounter Care Teams Stationary Engineer Refrigeration Relationship Specialty Start Date End Date Margot Branham MD PCP - General Internal Medicine 10/28/[address] [place] [address] Carlota Landeros MD MD Urology 04/10/[address] [place] [address] Michelle Montana, RN Registered Nurse Urology 05/07/17 Anh Costa APRN NUTRITION CLUB AMBASSADOR Nurse Practitioner Nurse Practitioner 10/07 Martinez Galicia MD MD Ophthalmology 04/18/18 [address] [place] [address] Sabino Romano DPM MD Podiatry 08/11/[address] [phone] Mehreen Johnston MD PhD MD Family Practice 11/15/[address] [place] [address] Margot Branham MD MD Internal Medicine 04/17/[address] [place] [address] Margot Branham MD Assigned PCP 09/15/[address] [place] [phone] documented as of this encounter
--- OUTSIDE RECORDS SUMMARY | 2022-07-30 20:01 | XMS_ITS | Encounter Summary ---
:1945 Author Organization [place] Address [address] [place] [address]. [place] [address] Care Team Providers Name Role Phone Carlota Landeros MD Unavailable Michelle Montana RN Unavailable Anh Costa HANDKERCHIEF SAMPLE CLERK JOURNEYMAN ELECTRICIAN Unavailable Unavailable Martinez Galicia MD Unavailable Sabino Romano DPM Unavailable Mehreen Johnston MD PhD Unavailable [phone] LogeaMargot man MD Unavailable LogMargot sadler MD Unavailable LogMargot sadler MD Primary Care Provider Encounter Details Date Type Department Care Team Description 04/24/2022 Lab [facility] Lab [place] usal syndrome (hot flashes); [place] Abnormal findings on diagnos tic imaging of other specified body structures [address] [place] [phone] Social History Tobacco Use Types Packs/Day [...] Internal Medicine Margot Branham MD [address] [address] (Wo rk) documented as of [...] reflex to Culture (04/24/2022 11:48 AM CDT) [facility] Method Time Signature Color Urine Yellow Colorless, JAKUB 04/24/2022 [facility] Straw, Light 12:19 PM LABORATORY - Yellow, CDT CORE LAB Yellow Appearance Urine Clear Clear JAKUB 04/24/2022 [facility] 12:19 PM LABORATORY - CDT CORE LAB Glucose Urine Negative Negative JAKUB 04/24/2022 [facility] mg/dL 12:19 PM LABORATORY - CDT CORE LAB Bilirubin Urine Negative Negative JAKUB 04/24/2022 [facility] 12:19 PM LABORATORY - CDT CORE LAB Ketones Urine Negative Negative JAKBU 04/24/2022 [facility] mg/dL 12:19 PM LABORATORY - CDT CORE LAB Specific [place] 1.020 1.003 - JAKUB 04/24/2022 [facility] Urine 1.035 12:19 PM LABORATORY - CDT CORE LAB Blood Urine Negative Negative JAKUB 04/24/2022 [facility] 12:19 PM LABORATORY - CDT CORE LAB pH Urine 5.0 5.0 - 7.0 JAKUB 04/24/2022 [facility] 12:19 PM LABORATORY - CDT CORE LAB Protein Albumin Negative Negative JAKUB 04/24/2022 [facility] Urine mg/dL 12:19 PM LABORATORY - CDT CORE LAB Urobilinogen Normal Normal, 2.0 JAKUB 04/24/2022 [facility] Urine mg/dL 12:19 PM LABORATORY - CDT CORE LAB Nitrite Urine Negative Negative JAKUB 04/24/2022 [facility] 12:19 PM LABORATORY - CDT CORE LAB Leukocyte Negative Negative JAKUB 04/24/2022 [facility] Esterase Urine 12:19 PM LABORATORY - CDT CORE LAB Bacteria Urine None Seen None Seen 04/24/2022 [facility] /HPF 12:19 PM LABORATORY - CDT CORE LAB RBC Urine 0 <=2 /HPF 04/24/2022 [facility] 12:19 PM LABORATORY - CDT CORE LAB WBC Urine <1 <=5 /HPF 04/24/2022 [facility] 12:19 PM LABORATORY - CDT CORE LAB Specimen Anatomical Collection Method Collection Time Receive d Time (Source) Location / / Volume Laterality Urine MID-STREAM URINE Non-blood 04/24/2022 11:48 022 SPECIMEN / Unknown Collection / AM CDT 11:48 AM CDT Unknown Narrative [facility] LABORATORY - CORE LAB - 04/24/2022 12:19 PM CDT Urine Culture not indicated Margot Branham MD LAB - URINE ORDERABLES Performing Organization Address City/State/ZIP Code Phon e Number [facility] - CORE LAB [facility] [place] [address] 1st Floor Lab Core Lab [facility] LABOR[facility]ORY - CORE LAB [place], [place] [address] Clinics and Surgery [place] - [address] 1st Floor Lab Core Lab CBC with platelets and differential (04/24/2022 11:01 AM CDT) Analysis Performed At Patho logist Time Signature WBC Count 5.9 4.0 - 11.0 04/24/2022 [facility] 10e3/uL 11:06 AM CDT LABORATORY - CORE LAB RBC Count 4.62 3.80 - 04/24/2022 [facility] 5.20 11:06 AM CDT LABORATORY - 10e6/uL CORE LAB Hemoglobin 14.2 11.7 - 04/24/2022 [facility] 15.7 g/dL 11:06 AM CDT LABORATORY - CORE LAB Hematocrit 42.7 35.0 - 04/24/2022 [facility] 47.0 % 11:06 AM CDT LABORATORY - CORE LAB MCV 92 78 - 100 04/24/2022 [facility] fL 11:06 AM CDT LABORATORY - CORE LAB MCH 30.7 26.5 - 04/24/2022 [facility] 33.0 pg 11:06 AM CDT LABORATORY - CORE LAB MCHC 33.3 31.5 - 04/24/2022 [facility] 36.5 g/dL 11:06 AM CDT LABORATORY - CORE LAB RDW 12.7 10.0 - 04/24/2022 [facility] 15.0 % 11:06 AM CDT LABORATORY - CORE LAB Platelet Count 157 150 - 450 04/24/2022 [facility] 10e3/uL 11:06 AM CDT LABORATORY - CORE LAB % Neutrophils 67 % 04/24/2022 [facility] 11:06 AM CDT LABORATORY - CORE LAB % Lymphocytes 24 % 04/24/2022 [facility] 11:06 AM CDT LABORATORY - CORE LAB % Monocytes 7 % 04/24/2022 [facility] 11:06 AM CDT LABORATORY - CORE LAB % Eosinophils 2 % 04/24/2022 [facility] 11:06 AM CDT LABORATORY - CORE LAB % Basophils 0 % 04/24/2022 [facility] 11:06 AM CDT LABORATORY - CORE LAB % Immature 0 % 04/24/2022 [facility] Granulocytes 11:06 AM CDT LABORATORY - CORE LAB NRBCs per 100 WBC 0 <1 /100 04/24/2022 [facility] 11:06 AM CDT LABORATORY - CORE LAB Absolute 3.9 1.6 - 8.3 04/24/2022 [facility] Neutrophils 10e3/uL 11:06 AM CDT LABORATORY - CORE LAB Absolute 1.4 0.8 - 5.3 04/24/2022 [facility] Lymphocytes 10e3/uL 11:06 AM CDT LABORATORY - [...] - BLOOD ORDERABLES Performing Organization Address [facility]/State/[facility] Phon e Number [facility]ORATORY - CORE LAB [facility] [place] [address] 1st Floor Lab Core Lab [facility] LABORATORY - CORE LAB [place], [place] [address] Clinics and Surgery [address] 1st Floor Lab Core Lab (ABNORMAL) Comprehensive metabolic panel (04/24/2022 11:01 AM CDT) [facility] Method Time Signature Sodium 141 133 - 144 04/24/2022 [facility] mmol/L 11:24 AM CDT LABORATORY - CORE LAB Potassium 4.5 3.4 - 5.3 04/24/2022 [facility] mmol/L 11:24 AM CDT LABORATORY - CORE LAB Chloride 109 94 - 109 04/24/2022 [facility] mmol/L 11:24 AM CDT LABORATORY - CORE LAB Carbon Dioxide 25 20 - 32 04/24/2022 [facility] (CO2) mmol/L 11:24 AM CDT LABORATORY - CORE LAB Anion Gap 7 3 - 14 04/24/2022 [facility] mmol/L 11:24 AM CDT LABORATORY - CORE LAB Urea Nitrogen 20 7 - 30 04/24/2022 [facility] mg/dL 11:24 AM CDT LABORATORY - CORE LAB Creatinine 0.75 0.52 - 04/24/2022 [facility] 1.04 mg/dL 11:24 AM CDT LABORATORY - CORE LAB Calcium 9.0 8.5 - 10.1 04/24/2022 [facility] mg/dL 11:24 AM CDT LABORATORY - CORE LAB Glucose 103 (H) 70 - 99 04/24/2022 [facility] mg/dL 11:24 AM CDT LABORATORY - CORE LAB Alkaline 77 40 - 150 04/24/2022 [facility] Phosphatase U/L 11:24 AM CDT LABORATORY - CORE LAB AST 22 0 - 45 U/L 04/24/2022 [facility] 11:24 AM CDT LABORATORY - CORE LAB ALT 25 0 - 50 U/L 04/24/2022 [facility] 11:24 AM CDT LABORATORY - CORE LAB Protein Total 6.9 6.8 - 8.8 04/24/2022 [facility] g/dL 11:24 AM CDT LABORATORY - CORE LAB Albumin 3.8 3.4 - 5.0 04/24/2022 [facility] g/dL 11:24 AM CDT LABORATORY - CORE LAB Bilirubin Total 0.5 0.2 - 1.3 04/24/2022 [facility] mg/dL 11:24 AM CDT LABORATORY - CORE LAB GFR Estimate 83 >60 04/24/2022 [facility] mL/min/1.7 11:24 AM CDT LABORATORY - 3m2 CORE LAB Comment: Effective September 23, 2021 eGF Rcr in adults is calculated using the 2020 CKD-EPI creatinine equation which includ es age and gender (Brianna et al., NEJ, DOI: 10.1056/IJMOgc8979157) Specimen Anatomical Collection Method / Collection Time Recei yenny Time (Source) Location / Volume Laterality Blood STRUCTURE OF LEFT Venipuncture / 04/24/2022 11:01 04/04 UPPER LIMB / Unknown AM CDT 11:02 AM CDT Unknown Margot Branham MD LAB - BLOOD ORDERABLES Performing Organization Address City/State/ZIP Code Phon e Number [facility] - CORE LAB [facility] [place] [address] 1st Floor Lab Core Lab [facility] LABOR[facility]ORY - CORE LAB [place], [place] [address] Clinics and Surgery [address] Floor Lab Core Lab CRP inflammation [...] [facility] Code Phon e Number [facility]ORY - CORE LAB [facility] [place] [address] Floor Lab Core Lab [facility] LABORATORY - CORE LAB [place], [place] [address] Clinics and Surgery [address] Floor Lab Core Lab Estradiol (04/24/2022 11:01 AM CDT) athologist Signature Estradiol <5 pg/mL 04/24/2022 6:10 [facility] PM CDT Comment: Healthy Men: 11.3-43.2 pg/mL Healthy Postmenopausal Women: Postmenopause: <5-138 pg/mL Healthy Women: 1st trimester: 154-3243 pg/mL 2nd trimester: 1561-27720 pg/mL 3rd trimester: 8525->62690 pg/mL Healthy Women Cycle Phase: Follicular: 30.9-90.4 pg/mL Ovulation: 60.4-533 pg/mL Luteal: 60.4-232 pg/mL Healthy Women Cycle Sub-Phase: Early Follicular: 20.5-62.8 pg/mL Intermediate Follicular: 26-79.8 pg/mL Late Follicular: 49.5-233 pg/mL Ovulation: 60.4-602 pg/mL Early Luteal: 51.1-179 pg/mL Intermediate Luteal: 66.5-305 pg/mL Late Luteal: 30.2-222 pg/mL Specimen Anatomical Collection Method / Collection Time Recei yneny Time (Source) Location / Volume Laterality Blood STRUCTURE OF LEFT Venipuncture / 04/24/2022 11:01 04/04 UPPER LIMB / Unknown AM CDT 11:02 AM CDT Unknown Margot Branham MD LAB - BLOOD ORDERABLES Performing Organization Address City/State/ZIP Code Phon e Number U LABORATORY [facility] [place] [address] Lab [address] [facility] J Building, Room 3-580 TSH with free T4 reflex (04/24/2022 11:01 AM CDT) P athologist Signature TSH 0.74 0.40 - 4.00 04/24/2022 [facility]ORATORY mU/L 11:31 AM CDT - CORE LAB Specimen Anatomical Collection Method / Collection Time Recei yenny Time (Source) Location / Volume Laterality Blood STRUCTURE OF LEFT Venipuncture / 04/24/2022 11:01 04/04 UPPER LIMB / Unknown AM CDT 11:02 AM CDT Unknown Margot Branham MD LAB - BLOOD ORDERABLES Performing Organization Address City/[facility] Phon e Number [facility] - CORE LAB [facility] [place] [address] Floor Lab Core Lab [facility] LAB[facility]ORY - CORE LAB [place], [place] [address] Clinics and Surgery [place] - [address] Floor Lab Core Lab documented in this encounter Visit Diagnoses Diagnosis Menopausal syndrome (hot flashes) Symptomatic menopausal or female climact froy states Abnormal findings on diagnostic imaging of other specified body structures documented in this encounter Additional Health Concerns Assessment Noted Time PHQ-9 Depression Total Score: 0 11/22/2019 10:49 AM CS T documented as of this encounter Care Teams Mill Recorder Relationship Specialty Start Date End Date Margot Branham MD PCP - General Internal Medicine 10/28/[address] [place] [address] Carlota Landeros MD MD Urology 04/10/[address] [place] [address] Michelle Montana, RN Registered Nurse Urology 05/07/17 Anh Costa APRN JOURNEYMAN ELECTRICIAN Nurse Practitioner Nurse Practitioner 10/07 Martinez Galicia MD MD Ophthalmology 04/18/18 [address] [place], [place] [phone] Sabino Romano DPM MD Podiatry 08/11/[address] [phone] Mehreen Johnston MD PhD MD Family Practice 11/15/[address] [place] [address] [phone] Margot Branham MD MD Internal Medicine 04/17/[address] [place] [address] [phone] Margot Branham MD Assigned PCP 09/15/[address] [place] [address] [phone] documented as of this encounter
--- OUTSIDE RECORDS SUMMARY | 2022-07-30 20:01 | XMS_ITS | Encounter Summary ---
:1945 Author Organization [place] Address [address] [place] [address]. [place] [address] Care Team Providers Name Role Phone Carlota Landeros MD Unavailable Michelle Montana RN Unavailable Anh Costa BUILDING CODE INSPECTOR DIAMOND BROKER Unavailable Unavailable Martinez Galicia MD Unavailable Sabino Romano DPM Unavailable Mehreen Johnston MD PhD Unavailable [phone] LogeaMargot man MD Unavailable LogeaMargot man MD Unavailable LogMargot sadler MD Primary Care Provider Reason for Visit Diagnostic Imaging CT Scan (Routine) - Closed Specialty Diagnoses / Procedures Referred By Contact Refer red To Contact Diagnoses Neck pain Spine instability Mitul Bacon, GRAIN ELEVATOR AGENT Procedures CT Cervical Spine w/o Contrast [facility] [address] [place] [address] Referral ID Status Reason Start Date Expiration Date Visits Requ ested Visits Authorized [id number] Closed 01/08/2022 01/08/2023 1 1 Encounter Details Date Type Department Care Team Description 01/23/2022 Ancillary Procedure [facility] Mitul Bacon, Neck pain; Imaging Center CT GRAIN ELEVATOR AGENT Spine instability Clinic [facility] [address] [facility] 1st Floor [address] [facility] [address] [place] [address] [phone] Social History Tobacco Use Types Packs/Day Years [...] Visit Internal Medicine LogeaisMargot MD [address] [address] (Wo rk) documented as of this encounter [...] anterolisthesis at C2-3. Mild di ffuse osteopenia. Nmgc-cw-prqnavyb degenerative changes, i ncluding the apical dens, [...] anterolisthesis at C2-3. Mild di ffuse osteopenia. Rcmf-wd-onbodhkd degenerative changes, i ncluding the apical dens, [...] findings. CAIN ROBERTSON MD Mitul Jody Bacon GRAIN ELEVATOR AGENT IMG CT ORDERABLES documented in this encounter Visit Diagnoses Diagnosis Neck pain Cervicalgia Spine instability Other unspecified back disorder documented in this encounter Additional Health Concerns Assessment Noted Time PHQ-9 Depression Total Score: 0 11/22/2019 10:49 AM CS T documented as of this encounter Care Teams Survey Analyst Relationship Specialty Start Date End Date Margot Branham MD PCP - General Internal Medicine 10/28/[address] [address] Carlota Landeros MD MD Urology 04/10/[address] [place], [place] [address] Michelle Montana, RN Registered Nurse Urology 05/07/17 Anh Costa APRN DIAMOND BROKER Nurse Practitioner Nurse Practitioner 10/07 Martinez Galicia MD MD Ophthalmology 04/18/[address] [place] [address] [phone] Sabino Romano DPM MD Podiatry 08/11/[address] [place] [phone] Mehreen Johnston MD PhD MD Family Practice 11/15/[address] [place] [address] Margot Branham MD MD Internal Medicine 04/17/[address] [place] [address] [phone] Margot Branham MD Assigned PCP 09/15/[address] [place] [address] documented as of this encounter
--- OUTSIDE RECORDS SUMMARY | 2022-07-30 20:01 | XMS_ITS | Encounter Summary ---
:1945 Author Organization [facility] Address [address] [place] [address]. [place] [address] Care Team Providers Name Role Phone Carlota Landeros MD Unavailable Michelle Montana RN Unavailable Anh Costa CHIEF OF PARTY TILE TRIMMER Unavailable Unavailable Martinez Galicia MD Unavailable Sabino Romano DPM Unavailable Mehreen Johnston MD PhD Unavailable [phone] Margot Branham MD Unavailable Magrot Branham MD Unavailable Margot Branham MD Primary [...] Office Visit Internal Medicine LogeaMargot man MD [address] [place] [address] 79595 (Wo rk) documented as of this encounter Visit Diagnoses Not on filedocumented in this encounter Additional Health Concerns Assessment Noted Time PHQ-9 Depression Total Score: 0 11/22/2019 10:49 AM CS T documented as of this encounter Care Teams Copy Holder Relationship Specialty Start Date End Date Margot Branham MD PCP - General Internal Medicine 10/28/[address] [place] [address] 38510 Carlota Landeros MD MD Urology 04/10/[address] [place] [address] Michelle Montana, RN Registered Nurse Urology 05/07/17 Anh Costa APRN TILE TRIMMER Nurse Practitioner Nurse Practitioner 10/07 Martinez Galicia MD MD Ophthalmology 04/18/18 [address] [place] [address] Sabino Romano DPM MD Podiatry 08/11/[address] [phone] Mehreen Johnston MD PhD MD Family Practice 11/15/[address] [place] [address] 32179 Margot Branham MD MD Internal Medicine 04/17/[address] [place] [address] 00467 Margot Branahm MD Assigned PCP 09/15/[address] [place] [address] 79371 documented as of this encounter
--- OUTSIDE RECORDS SUMMARY | 2022-07-30 20:01 | XMS_ITS | Encounter Summary ---
:1945 Author Organization [facility] Address [address] [place] [address]. [place] [address] Care Team Providers Name Role Phone Carlota Landeros MD Unavailable Michelle Montana RN Unavailable Anh Costa TRIAL MANAGEMENT ASSOCIATE PAINT PREPARER Unavailable Unavailable Martinez Galicia MD Unavailable Sabino Romano DPM Unavailable Mehreen Johnston MD PhD Unavailable [phone] LogMargot sadler MD Unavailable Margot Branham MD [...] Office Visit Internal Medicine LogMargot sadler MD [address] [place] [address] [phone] (Wo rk) documented as of this encounter Visit Diagnoses Not on filedocumented in this encounter Additional Health Concerns Assessment Noted Time PHQ-9 Depression Total Score: 0 11/22/2019 10:49 AM CS T documented as of this encounter Care Teams Sprinkler Inspector Relationship Specialty Start Date End Date Margot Branham MD PCP - General Internal Medicine 10/28/[address] [place] [address] [phone] Carlota Landeros MD MD Urology 04/10/[address] [place], [place] [address] Michelle Montana RN Registered Nurse Urology 05/07/17 Anh Costa APRN PAINT PREPARER Nurse Practitioner Nurse Practitioner 10/07 Martinez Galicia MD MD Ophthalmology 04/18/18 [address] [place], [place] 7[address] Sabino Romano DPM MD Podiatry 08/11/[address] [phone] Mehreen Johnston MD PhD MD Family Practice 11/15/[address] [place] [address] [phone] Margot Branham MD MD Internal Medicine 04/17/[address] [place] [address] 348145 Margot Branham MD Assigned PCP 09/15/[address] [place] [address] [phone] Alonso Tejeda MD MD Internal Medicine 06/19/[address] [place] [address] documented as of this encounter
--- OUTSIDE RECORDS SUMMARY | 2022-07-30 20:01 | XMS_ITS | Encounter Summary ---
:1945 Author Organization [facility] Address [address] [place] [address]. [place] [address] Care Team Providers Name Role Phone Carlota Landeros MD Unavailable Michelle Montana RN Unavailable Anh Costa PRIVATE WATCHMAN LASER BEAM MACHINE OPERATOR Unavailable Unavailable Martinez Galicia MD Unavailable Sabino Romano DPM Unavailable Mehreen Johnston MD PhD Unavailable [phone] Margot Branham MD Unavailable Margot Branham MD [...] Office Visit Internal Medicine LogeaMargot man MD [address] [place] [address] 86046 (Wo rk) documented as of this encounter Visit Diagnoses Not on filedocumented in this encounter Additional Health Concerns Assessment Noted Time PHQ-9 Depression Total Score: 0 11/22/2019 10:49 AM CS T documented as of this encounter Care Teams Bed Manager Relationship Specialty Start Date End Date Margot Branham MD PCP - General Internal Medicine 10/28/[address] [place] [address] 63015 Carlota Landeros MD MD Urology 04/10/[address] [place] [address] Michelle Montana, RN Registered Nurse Urology 05/07/17 Anh Costa APRN LASER BEAM MACHINE OPERATOR Nurse Practitioner Nurse Practitioner 10/07 Martinez Galicia MD MD Ophthalmology 04/18/18 420 [place] [address] Sabino Romano DPM MD Podiatry 08/11/[address] [phone] Mehreen Johnston MD PhD MD Family Practice 11/15/[address] [place] [address] 495[address] Margot Branham MD MD Internal Medicine 04/17/[address] [place] [address] 18907 Margot Branham MD Assigned PCP 09/15/[address] [place] [address] 6[address]10 documented as of this encounter
--- OUTSIDE RECORDS SUMMARY | 2022-07-30 20:01 | XMS_ITS | Encounter Summary ---
:1945 Author Organization [facility] Address [address] [place] [address]. [place] [address] Care Team Providers Name Role Phone Carlota Landeros MD Unavailable Michelle Montana RN Unavailable Anh Costa BREASTER CASHIER RECEPTIONIST Unavailable Unavailable Martinez Galicia MD Unavailable Sabino Romano DPM Unavailable Mehreen Johnston MD PhD Unavailable [phone] Margot Branham MD Unavailable Margot Branham MD [...] with No / Unsure 10/30/2021 8:37 AM GREY GOODS MARKER someone who was confirmed or suspected to have Coronavirus / COVID-19? documented as of this encounter Plan of Treatment Upcoming Encounters Date Type Specialty Care Team Description 09/10/2022 Office Visit Internal Medicine LogMargot sadler MD [address] [place] [address] 55455 (Wo rk) documented as of this encounter Visit Diagnoses Not on filedocumented in this encounter Additional Health Concerns Assessment Noted Time PHQ-9 Depression Total Score: 0 11/22/2019 10:49 AM CS T documented as of this encounter Care Teams Customer Success Specialist Relationship Specialty Start Date End Date Margot Branham MD PCP - General Internal Medicine 10/28/[address] [place] [address] [phone] Carlota Landeros MD MD Urology 04/10/[address] [place] [address] Michelle Montana, RN Registered Nurse Urology 05/07/17 Anh Costa APRN CASHIER RECEPTIONIST Nurse Practitioner Nurse Practitioner 10/07 Martinez Galicia MD MD Ophthalmology 04/18/[address] [place] [address] 6[address] Sabino Romano DPM MD Podiatry 08/11/[address] [phone] Mehreen Johnston MD PhD MD Family Practice 11/15/[address] [place] [address] 59[address] Margot Branham MD MD Internal Medicine 04/17/[address] [place] [address] 441195 Margot Branham MD Assigned PCP 09/15/[address] [place] [address] 53400 documented as of this encounter
--- OUTSIDE RECORDS SUMMARY | 2022-07-30 20:02 | XMS_ITS | Encounter Summary ---
:1945 Author Organization [facility] Address [address] [place] [address]. [place] [address] Care Team Providers Name Role Phone Carlota Landeros MD Unavailable Michelle Montana RN Unavailable Anh Costa CUSTOM CAR BUILDER CLOTHES DRIER REPAIRER Unavailable Unavailable Martinez Galicia MD Unavailable Sabino Romano DPM Unavailable Mehreen Johnston MD PhD Unavailable [phone] Margot Branham MD Unavailable Margot Branham MD [...] with No / Unsure 08/15/2021 10:58 AM BUSINESS SERVICES ASSISTANT someone who was confirmed or suspected to have Coronavirus / COVID-19? documented as of this encounter Plan of Treatment Upcoming Encounters Date Type Specialty Care Team Description 09/10/2022 Office Visit Internal Medicine LogMargot sadler MD [address] [place] [address]455 (Wo rk) documented as of this encounter Visit Diagnoses Not on filedocumented in this encounter Additional Health Concerns Assessment Noted Time PHQ-9 Depression Total Score: 0 11/22/2019 10:49 AM CS T documented as of this encounter Care Teams Clam Treader Relationship Specialty Start Date End Date Margot Branham MD PCP - General Internal Medicine 10/28/[address] [place] [address] [phone] Carlota Landeros MD MD Urology 04/10/[address] [place] [address] Michelle Montana, RN Registered Nurse Urology 05/07/17 Anh Costa APRN CLOTHES DRIER REPAIRER Nurse Practitioner Nurse Practitioner 10/07 Martinez Galicia MD MD Ophthalmology 04/18/[address] [place] [address] 83625 Sabino Romano DPM MD Podiatry 08/11/[address] [phone] Mehreen Johnston MD PhD MD Family Practice 11/15/[address] [place] [address] 11383 Margot Branham MD MD Internal Medicine 04/17/[address] [place] [address] 331975 Margot Branham MD Assigned PCP 09/15/[address] [place] [address] 95222 documented as of this encounter
--- OUTSIDE RECORDS SUMMARY | 2022-07-30 20:02 | XMS_ITS | Encounter Summary ---
:1945 Author Organization [facility] Address [address] [place] [address]. [place] [address] Care Team Providers Name Role Phone Carlota Landeros MD Unavailable Michelle Montana RN Unavailable Anh Costa RETAIL ROUTE SUPERVISOR PHOTO MASK INSPECTOR Unavailable Unavailable Martinez Galicia MD Unavailable Sabino Romano DPM Unavailable Kyle Roberts MD Primary Care Provider Mehreen Johnston MD PhD Unavailable [phone] Margot Branham MD Unavailable Martinez Galicia MD [...] with No / Unsure 09/06/2020 5:13 PM RESPIRATORY THERAPY ASSISTANT someone who was confirmed or suspected to have Coronavirus / COVID-19? documented as of this encounter Plan of Treatment Upcoming Encounters Date Type Specialty Care Team Description 09/10/2022 Office Visit Internal Medicine Margot Branham MD [address] [place] [address] 55455 (Wo rk) documented as of this encounter Visit Diagnoses Not on filedocumented in this encounter Additional Health Concerns Assessment Noted Time PHQ-9 Depression Total Score: 0 11/22/2019 10:49 AM CS T documented as of this encounter Care Teams Laborer Construction Or Leak Gang Relationship Specialty Start Date End Date Kyle Roberts MD PCP - General Family Practice 11/15/19 10/27/[address] [place], [place] [address] Carlota Landeros MD MD Urology 04/10/[address] [place], [place] [address] Michelle Montana, RN Registered Nurse Urology 05/07/17 Anh Costa APRN Nurse Practitioner Nurse Practitioner 10/07/17 PHOTO MASK INSPECTOR Martinez Galicia MD Ophthalmology 04/18/[address] [place] [address] [phone] Sabino Romano DPM MD Podiatry 08/11/18 [address] [place] [address] [phone] Mehreen Johnston MD Family Practice 11/15/19 MD PhD [address] [place] [address] [phone] Margot Branham MD MD Internal Medicine 04/17/[address] [place] [address] 354355 Martinez Galicia, Assigned Surgical 07/26/20 MD Provider [address] [place] [address] 160595 documented as of this encounter
--- OUTSIDE RECORDS SUMMARY | 2022-07-30 20:02 | XMS_ITS | Encounter Summary ---
:1945 Author Organization [facility] Address [address] [place] [address]. [place] [address] Care Team Providers Name Role Phone Carlota Landeros MD Unavailable Michelle Montana RN Unavailable Anh Costa ROAD CONTRACTOR MANAGER COMMUNITY RELATIONS Unavailable Unavailable Martinez Galicia MD Unavailable Sabino Romano DPM Unavailable Kyle Roberts MD Primary Care Provider Mehreen Johnston MD PhD Unavailable [phone] Margot Branham MD Unavailable Martinez Galicia MD [...] with No / Unsure 09/03/2020 4:52 PM SUBSTATION INSPECTOR someone who was confirmed or suspected to have Coronavirus / COVID-19? documented as of this encounter Plan of Treatment Upcoming Encounters Date Type Specialty Care Team Description 09/10/2022 Office Visit Internal Medicine Margot Branham MD [address] [place] [address] 55455 (Wo rk) documented as of this encounter Visit Diagnoses Not on filedocumented in this encounter Additional Health Concerns Assessment Noted Time PHQ-9 Depression Total Score: 0 11/22/2019 10:49 AM CS T documented as of this encounter Care Teams Canvas Goods Fabricator Relationship Specialty Start Date End Date Kyle Roberts MD PCP - General Family Practice 11/15/19 10/27/[address] [place], [place] [address] Carlota Landeros MD MD Urology 04/10/[address] [place], [place] [address] Michelle Montana, RN Registered Nurse Urology 05/07/17 Anh Costa APRN Nurse Practitioner Nurse Practitioner 10/07/17 MANAGER COMMUNITY RELATIONS Martinez Galicia MD Ophthalmology 04/18/[address] [place] [address] [phone] Sabino Romano DPM MD Podiatry 08/11/[address] [place] [address] [phone] Mehreen Johnston MD Family Practice 11/15/19 MD PhD [address] [place] [address] [phone] Margot Branham MD MD Internal Medicine 04/17/[address] [place] [address] [phone] Martinez Galicia, Assigned Surgical 07/26/20 MD Provider [address] [place] [address] [phone] documented as of this encounter
--- OUTSIDE RECORDS SUMMARY | 2022-07-30 20:02 | XMS_ITS | Encounter Summary ---
:1945 Author Organization [facility] Address [address] [place] [address]. [place] [address] Care Team Providers Name Role Phone Carlota Landeros MD Unavailable Michelle Montana RN Unavailable Anh Costa FINANCIAL SERVICES EDUCATION CONSULTANT ENVIRONMENTAL ECONOMIST Unavailable Unavailable Martinez Galicia MD Unavailable Sabino Romano DPM Unavailable Mehreen Johnston MD PhD Unavailable [phone] LogMargot sadler MD Unavailable Martinez Galicia MD [...] Visit Internal Medicine Margot Branham MD [address] [place] [address] [phone] (Wo rk) documented as of this encounter Visit Diagnoses Not on filedocumented in this encounter Additional Health Concerns Assessment Noted Time PHQ-9 Depression Total Score: 0 11/22/2019 10:49 AM CS T documented as of this encounter Care Teams Steam Crane Operator Relationship Specialty Start Date End Date Margot Branham MD PCP - General Internal Medicine 10/28/[address] [place] [address] 786125 Carlota Landeros MD MD Urology 04/10/[address] [place], [place] [address] Michelle Montana, MODESTA Registered Nurse Urology 05/07/17 Anh Costa APRN Nurse Practitioner Nurse Practitioner 10/07/17 ENVIRONMENTAL ECONOMIST Martinez Galicia MD Ophthalmology 04/18/[address] [place] [address] [phone] Sabino Romano DPM MD Podiatry 08/11/[address] [phone] Mehreen Johnston MD Family Practice 11/15/[address] [place] [address] [phone] Margot Branham MD MD Internal Medicine 04/17/[address] [place] [address] [phone] Martinez Galicia, Assigned Surgical 07/26/20 MD Provider [address] [place] [address] [phone] Marogt Branham MD Assigned PCP 09/15/[address] [address] documented as of this encounter
--- OUTSIDE RECORDS SUMMARY | 2022-07-30 20:02 | XMS_ITS | Encounter Summary ---
:1945 Author Organization [facility] Address [address] [place] [address] Care Team Providers Name Role Phone Carlota Acuña MD Unavailable Michelle Montana RN Unavailable Anh Costa SOLUTIONS OPERATOR INFRASTRUCTURE TECH Unavailable Unavailable Martinez Galicia MD Unavailable Sabino Romano DPM Unavailable Mehreen Johnston MD PhD Unavailable [phone] LogMargot sadler MD Unavailable Martinez Galicia MD Unavailable LogMargot sadler MD Unavailable Margot Branham MD Primary Care Provider Reason for Referral Rehab Therapy Physical Therapy (Routine) - Closed Specialty Diagnoses / Procedures Referred By Contact Refer red To Contact Diagnoses Lumbar back pain Margot Branham MD [address] [place] [address] 4345 5 Referral ID Status Reason Start Date Expiration Date Visits Requ ested Visits Authorized [id number] Closed 12/09/2020 12/09/2021 1 1 herapeutic Procedure Only (Routine) - Closed Specialty Diagnoses / Procedures Referred By Contact Refer red To Contact Diagnoses Lumbar back pain Margot Branham MD [address] [place] [address] 5545 5 Referral ID Status Reason Start Date Expiration Date Visits Requ ested Visits Authorized [id number] Closed 12/09/2020 12/09/2021 1 1 RNAL COMMUNICATIONS INTERN Reason for Visit Reason Comments RECHECK Pt is following up. Encounter Details Date Type Department Care Team Description 12/09/2020 Virtual Visit [facility] Margot Branham, Lumbar back pain (Primary Dx); Clinic Internal Age-related osteoporosis without current pathological fracture; Medicine [address] History of total left hip re placement; [address] [place] [address] Vaginal dryness; [address]th Floor [place], [place] Atrophic vaginitis; [place] [address] Screen for colon cancer; [address] Seasonal allergies; Chronic rhinitis; [phone] Recurrent cold sores; (Fax) Vitamin D defic [...] contact Unable to assess 12/09/2020 7:37 AM INTERNAL COMMUNICATIONS INTERN with someone who was confirmed or suspected to have Coronavirus / COVID-19? documented as of this encounter Patient Instructions Patient InstructionsGraciela Snow LPN - 12/09/2020 9:00 AM CST [facility] Medication Refill Request Information: * Please contact your pharmacy regarding ANY request for medication refills. [facility] Prescription Fax = [phone] * Please allow 3 business days for [...] the results and signed off on them. [facility]: [phone] RNAL COMMUNICATIONS INTERN documented in this encounter Progress Notes Margot [...] hyperlipidemia, osteoarthritis s/p L ALEKS recently at [facility] 09/11/20, osteoporosis, vaginal atrophy, urinary incontinence L sacralstimulator. Patient is recovering from ALEKS at [facility] early September. Incidentally, she also complains of [...] time. She had xray in May at [facility]: IMPRESSION: Osteopenia. No compression fractures. Hypertrophic changes thoracolumbar spine. Degenerative arthritis lower lumbar facet joints. Degenerative disk disease L3-lumbosacral interspaces. 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 Right ALEKS. Left sacral stimulator. She started fosamax. She has completed the following HCM at [facility]: [facility] 07/01/20 Procedure Date: 07/01/2020 Procedure: ? Colonoscopy [...] ??? Myocardial Infarction Maternal Grandfather 82 of [place] ??? Hypertension Maternal Grandfather ??? Cardiovascular Paternal [...] visits Diagnostic Test Results: Labs reviewed in [facility] Assessment/Plan: Yamileth was seen today for recheck. [...] 29 minutes Margot Branham MD Internal Medicine RNAL COMMUNICATIONS INTERN documented in this encounter Nursing Notes Graciela Snow LPN - 12/09/2020 9:00 AM CST Chief Complaint Patient presents with ??? RECHECK Pt is following up. Video Visit Technology for this patient: AmWell not working, patient has smart device, please try Doximity Video with patient Graciela ABDIRIZAK Snow at 7:39 AM on 12/09/2020. RNAL COMMUNICATIONS INTERN documented in this encounter Plan of Treatment Upcoming Encounters Date Type Specialty Care Team Description 09/10/2022 Office Visit Internal Medicine Margot Branham MD [address] [place] [address] [phone] (Wo rk) Scheduled Referrals Name Type Priority [...] documented as of this encounter Care Teams Wrapper Rewinder Relationship Specialty Start Date End Date Margot Branham MD PCP - General Internal Medicine 10/28/[address] [place] [address] [phone] Carlota Acuña MD MD Urology 04/10/[address] [place] [address] Michelle Montana, RN Registered Nurse Urology 05/07/17 Anh Costa APRN Nurse Practitioner Nurse Practitioner 10/07/17 INFRASTRUCTURE TECH Martinez Galicia MD Ophthalmology 04/18/18 MD [address] [place], [place] [address] Sabino Romano DPM MD Podiatry 08/11/18 [facility] [address] [phone] Mehreen Johnston MD Family Practice 11/15/19 MD PhD [address] [place] [address] Margot Branham MD MD Internal Medicine 04/17/[address] [place] [address] [phone] Martinez Galicia, Assigned Surgical 07/26/20 MD Provider [address] [place] [address] [phone] Margot Branham MD Assigned PCP 09/15/[address] [place] [address] [phone] documented as of this encounter
--- OUTSIDE RECORDS SUMMARY | 2022-07-30 20:02 | XMS_ITS | Encounter Summary ---
:1945 Author Organization [facility] Address [address] [place] [address]. [place] [address] Care Team Providers Name Role Phone Carlota Landeros MD Unavailable Michelle Montana RN Unavailable Anh Costa KILN CAR REPAIRER MACHINE TAPER Unavailable Unavailable Martinez Galicia MD Unavailable Sabino Romano DPM Unavailable Mehreen Johnston MD PhD Unavailable [phone] Margot Branham MD Unavailable Margot Branham MD [...] with No / Unsure 10/13/2021 4:17 PM FERMENTING CELLARS RECEIVER someone who was confirmed or suspected to have Coronavirus / COVID-19? documented as of this encounter Plan of Treatment Upcoming Encounters Date Type Specialty Care Team Description 09/10/2022 Office Visit Internal Medicine LogMargot sadler MD [address] [place] [address] (Wo rk) documented as of this encounter Visit Diagnoses Not on filedocumented in this encounter Additional Health Concerns Assessment Noted Time PHQ-9 Depression Total Score: 0 11/22/2019 10:49 AM CS T documented as of this encounter Care Teams Tenoner Operator Relationship Specialty Start Date End Date Margot Branham MD PCP - General Internal Medicine 10/28/[address] [place] [address] [phone] Carlota Landeros MD MD Urology 04/10/[address] [place] [address] Michelle Montana, RN Registered Nurse Urology 05/07/17 Anh Costa APRN MACHINE TAPER Nurse Practitioner Nurse Practitioner 10/07 Martinez Galicia MD MD Ophthalmology 04/18/[address] [place] [address] Sabino Romano DPM MD Podiatry 08/11/[address] [phone] Mehreen Johnston MD PhD MD Family Practice 11/15/[address] [place] [address] 7[address]69 Margot Branham MD MD Internal Medicine 04/17/[address] [place] [address] [phone] Margot Branham MD Assigned PCP 09/15/[address] [place] [address] 37037 documented as of this encounter
--- OUTSIDE RECORDS SUMMARY | 2022-07-30 20:02 | XMS_ITS | Encounter Summary ---
:1945 Author Organization [facility] Address [address] [place] [address]. [place] [address] Care Team Providers Name Role Phone Carlota Landeros MD Unavailable Michelle Montana RN Unavailable Anh Costa SENIOR ORACLE PL SQL DEVELOPER REGULATOR PIN INSERTER Unavailable Unavailable Martinez Galicia MD Unavailable Sabino Romano DPM Unavailable Mehreen Johnston MD PhD Unavailable [phone] LogMargot sadler MD Unavailable Martinez Galicia MD Unavailable Margot Branham MD Unavailable Margot Branham MD Primary Care Provider Reason for Referral Therapeutic Procedure Only (Routine) - Closed Specialty Diagnoses / Procedures Referred By Contact Refer red To Contact Diagnoses AMOS (degenerative disc disease), lumbar Margot Branham MD [address] [place] [address] 1145 5 Referral ID Status Reason Start Date Expiration Date Visits Requ ested Visits Authorized [id number] Closed 01/01/2021 01/01/2022 1 1 ehab Therapy Physical Therapy (Routine) - Closed Specialty Diagnoses / Procedures Referred By Contact Refer red To Contact Diagnoses DDD (degenerative disc disease), lumbar Margot Branham MD [address] 5545 5 Referral ID Status Reason Start Date Expiration Date Visits Requ ested Visits Authorized [id number] Closed 01/01/2021 01/01/2022 1 1 Reason for Visit Reason Onset Date Comments Referral 12/31/2020 Encounter Details Date Type Department Care Team Description 12/31/[address] [facility] Margot Branham MD Referral Internal Medicine [address] [place] [address] [place] [address] [place], [place] [phone] Social History Tobacco Use [...] contact Unable to assess 12/09/2020 7:37 AM ACADEMIC AFFAIRS ASSISTANT with someone who was confirmed or suspected to have Coronavirus / COVID-19? documented as of this encounter Miscellaneous Notes Telephone Encounter - Barbara Purvis LPN - 01/02/2021 8:29 AM CDT Referral faxed to CHRISTOPHER Thomson. Barbara Purvis LPN 01/02/2021 8:31 AM Telephone Encounter - Irma Camacho - 01/01/2021 2:26 PM CDT CHRISTOPHER thomson FAX- [phone] Waldo kapadia- no need to fax at [...] wanting to have the referral go to [facility] [place], . * Patient is [facility] to also have [facility] Patient is wanting to get a call back when this has been done, please advise- Patient states can send a message on [employer] also. Date needed: abimbola Provider name: Logeais Action Taken: Message routed to: [facility] Travel Screening: Not Applicable documented in this encounter Plan of Treatment Upcoming Encounters Date Type Specialty Care Team Description 09/10/2022 Office Visit Internal Medicine LogeaMargot mna MD [address] [place] [address] (Wo rk) Scheduled Referrals Name Type [...] documented as of this encounter Care Teams Environmental Emergencies Planner Relationship Specialty Start Date End Date LogMarogt sadler MD PCP - General Internal Medicine 10/28/[address] [place] [address] [phone] Carlota Landeros MD MD Urology 04/10/[address] [place], [place] [phone] Michelle Montana, RN Registered Nurse Urology 05/07/17 Anh Costa APRN Nurse Practitioner Nurse Practitioner 10/07/17 REGULATOR PIN INSERTER Martinez Galicia MD Ophthalmology 04/18/[address] [place] [address] [phone] Sabino Romano DPM MD Podiatry 08/11/[address] [place] [address] [phone] Mehreen Johnston MD Family Practice 11/15/19 MD PhD [address] [place] [address] [phone] Margot Branham MD MD Internal Medicine 04/17/[address] [place] [address] [phone] Martinez Galicia, Assigned Surgical 07/26/20 MD Provider [address] [place] [address] [phone] Margot Branham MD Assigned PCP 09/15/[address] [place] [address] [phone] documented as of this encounter
--- OUTSIDE RECORDS SUMMARY | 2022-07-30 20:02 | XMS_ITS | Encounter Summary ---
:1945 Author Organization [facility] Address [address] [place] [address]. [place] [address] Care Team Providers Name Role Phone Carlota Landeros MD Unavailable Michelle Montana RN Unavailable Anh Costa TECHNICIAN AUTOMATIC FASHION DESIGNER Unavailable Unavailable Martinez Galicia MD Unavailable Sabino Romano DPM Unavailable Mehreen Johnston MD PhD Unavailable [phone] LogeaMargot man MD Unavailable LogeaMargot man MD Unavailable LogMargot sadler MD Primary Care Provider Encounter Details Date Type Department Care Team Description 10/13/2021 Orders Only [facility] Mae Wilkinson, Alan alisa (Primary Dx) Urgent Care [place] [address] [place] [address] [phone] Social History Tobacco Use Types Packs/Day Years [...] with No / Unsure 10/13/2021 4:17 PM DIGITAL SALES MANAGER someone who was confirmed or suspected to have Coronavirus / COVID-19? documented as of this encounter Plan of Treatment Upcoming Encounters Date Type Specialty Care Team Description 09/10/2022 Office Visit Internal Medicine Margot Branham MD [address] [place], [place] [phone] (Wo rk) documented as of this encounter Results (ABNORMAL) Urine Culture Aerobic Bacterial - lab collect (10/13/2021 4:40 PM DIGITAL SALES MANAGER) [facility] gist Method Time Signature Culture >100,000 CFU/mL JAKUB 10/17/2021 [facility] Enterococcus 10:42 AM DIGITAL SALES MANAGER LABORATORY faecalis (A) Specimen Anatomical Collection Method Collection Time Receive d Time (Source) Location / / Volume Laterality Urine MID-STREAM URINE Non-blood 10/13/2021 4:40 PM 10/13 5:38 SPECIMEN / Unknown Collection / DIGITAL SALES MANAGER PM DIGITAL SALES MANAGER Unknown Narrative [facility] - 10/17/2021 10:42 AM DIGITAL SALES MANAGER Susceptibility testing requested by Dr Brii Nur [phone] for ciprofloxacin. Organism Antibiotic Method Susceptibility Enterococcus [...] Code Phon e Number [facility] [place] [address] [facility], Room D297 [facility] Infectious [place], [place] [phone] Diseases Diagnostic [id number], [facility] Lab (IDDL) [address] [facility], Room D297 documented in this encounter Visit Diagnoses Diagnosis Dysuria - Primary documented in this encounter Additional Health Concerns Assessment Noted Time PHQ-9 Depression Total Score: 0 11/22/2019 10:49 AM CS T documented as of this encounter Care Teams Java Swing Developer Relationship Specialty Start Date End Date Margot Branham MD PCP - General Internal Medicine 10/28/[address] [place] [address] Carlota Landeros MD MD Urology 04/10/[address] [place], [place] [phone] Michelle Montana, MODESTA Registered Nurse Urology 05/07/17 Anh Costa APRN FASHION DESIGNER Nurse Practitioner Nurse Practitioner 10/07 Martinez Galicia MD MD Ophthalmology 04/18/[address] [place] [address] [phone] Sabino Romano DPM MD Podiatry 08/11/[address] [phone] Mehreen Johnston MD PhD MD Family Practice 11/15/[address] [place] [address] [phone] Margot Branham MD MD Internal Medicine 04/17/[address] [place] [address] Margot Branham MD Assigned PCP 09/15/[address] [place] [address] [phone] documented as of this encounter
--- OUTSIDE RECORDS SUMMARY | 2022-07-30 20:02 | XMS_ITS | Encounter Summary ---
:1945 Author Organization [facility] Address [address] [place] [address]. [place] [address] Care Team Providers Name Role Phone Carlota Landeros MD Unavailable Michelle Montana RN Unavailable Anh Costa LOGISTICS SOLUTION MANAGER REPEATER OPERATOR Unavailable Unavailable Martinez Galicia MD Unavailable Sabino Romano DPM Unavailable Mehreen Johnston MD PhD Unavailable [phone] LogMargot sadler MD Unavailable Martinez Galicia MD Unavailable LogaMrgot sadler MD Unavailable Margot Branham MD Primary [...] contact Unable to assess 12/09/2020 7:37 AM CAREER SPECIALIST with someone who was confirmed or suspected to have Coronavirus / COVID-19? documented as of this encounter Plan of Treatment Upcoming Encounters Date Type Specialty Care Team Description 09/10/2022 Office Visit Internal Medicine Margot Branham MD [address] [place] [address] [phone] (Wo rk) documented as of this encounter Visit Diagnoses Not on filedocumented in this encounter Additional Health Concerns Assessment Noted Time PHQ-9 Depression Total Score: 0 11/22/2019 10:49 AM CS T documented as of this encounter Care Teams Cell Tuber Machine Relationship Specialty Start Date End Date Margot Branham MD PCP - General Internal Medicine 10/28/[address] [place] [address] [phone] Carlota Landeros MD MD Urology 04/10/[address] [place], [place] [address] Michelle Montana, MODESTA Registered Nurse Urology 05/07/17 Anh Costa APRN Nurse Practitioner Nurse Practitioner 10/07/17 REPEATER OPERATOR Martinez Galicia MD Ophthalmology 04/18/[address] [place] [address] [phone] Sabino Romano DPM MD Podiatry 08/11/[address] [phone] Mehreen Johnston MD Family Practice 11/15/19 MD PhD [address] [place] [address] [phone] Margot Branham MD MD Internal Medicine 04/17/[address] [place] [address] [phone] Martinez Galicia, Assigned Surgical 07/26/20 MD Provider [address] [place] [address] [phone] Margot Branham MD Assigned PCP 09/15/[address] [address] documented as of this encounter
--- OUTSIDE RECORDS SUMMARY | 2022-07-30 20:02 | XMS_ITS | Encounter Summary ---
:1945 Author Organization [facility] Address [address] [place] [address]. [place] [address] Care Team Providers Name Role Phone Carlota Landeros MD Unavailable Michelle Montana RN Unavailable Anh Costa CORRECTIONAL SECURITY OFFICER AUTOMOTIVE PARTS COORDINATOR Unavailable Unavailable Martinez Galicia MD Unavailable Sabino Romano DPM Unavailable Mehreen Johnston MD PhD Unavailable [phone] LogeaMargot man MD Unavailable Martinez Galicia MD Unavailable LogMargot sadler MD Unavailable LogMargot sadler MD Primary Care Provider Encounter Details Date Type Department Care Team Description 01/06/2021 Therapy Visit [facility] Kevin Wynn DDD ([facility], PT disc disease), [facility] [address] [place] [address] [phone] Social History Tobacco Use Types Packs/Day Years [...] history is provided by the patient. No sign language interpreter was used. Therapist Generated HPI Evaluation Problem details: December 2020. Pt started having LBP during Summer 2019. Denies specific RADHA. She had x-ray which showed arthritis in low back. She had PT in late 2019 which helped her low back improve. Pt underwent L ALEKS surgery at [facility] in [place] on 09/11/21. She notes her LBP increased [...] Sheet for this information) Short term and custodial goals: (See Goal Flow Sheet for this [...] Visit Internal Medicine Margot Branham MD [address] [place] [address] [phone] (Wo rk) documented as of this encounter [...] documented as of this encounter Care Teams Residential Monitor Relationship Specialty Start Date End Date Margot Branham MD PCP - General Internal Medicine 10/28/[address] [place] [address] [phone] Carlota Landeros MD MD Urology 04/10/[address] [place], [place] [address] Michelle Montana, MODESTA Registered Nurse Urology 05/07/17 Anh Costa APRN Nurse Practitioner Nurse Practitioner 10/07/17 Martinez Hernandez MD Ophthalmology 04/18/[address] [place] [address] [phone] Sabino Romano DPM MD Podiatry 08/11/[address] [phone] Mehreen Johnston MD Family Practice 11/15/19 MD PhD [address] [place] [address] Margot Branham MD MD Internal Medicine 04/17/[address] [place] [address] [phone] Martinez Galicia, Assigned Surgical 07/26/20 MD Provider [address] [place] [address] [phone] Magrot Branham MD Assigned PCP 09/15/[address] [place] [address] [phone] documented as of this encounter
--- OUTSIDE RECORDS SUMMARY | 2022-07-30 20:02 | XMS_ITS | Encounter Summary ---
:1945 Author Organization [facility] Address [address] [place] [address]. [place] [address] Care Team Providers Name Role Phone Carlota Landeros MD Unavailable Michelle Montana RN Unavailable Anh Costa MILKER MACHINE ASPHALT TILE FLOOR LAYER Unavailable Unavailable Martinez Galicia MD Unavailable Sabino Romano DPM Unavailable Mehreen Johnston MD PhD Unavailable [phone] LogeaMargot man MD Unavailable LogeaMargot man MD Unavailable LogMargot sadler MD Primary Care Provider Reason for Visit Reason Comments Urgent Care Mouth Problem sore in each corner of mouth . Encounter Details Date Type Department Care Team Description 08/15/2021 Office Visit [facility] Maranda Lowry ar cheilitis Urgent Care Reed Kamara MD (Primary Dx) Mercedes [address] [place] [address] [place], [place] [phone] (Wo rk) [address] [phone] Social History Tobacco Use Types Packs/Day Years [...] with No / Unsure 08/15/2021 10:58 AM RESIDENTIAL DIRECT SUPPORT PROFESSIONAL someone who was confirmed or suspected to have Coronavirus / COVID-19? documented as of this encounter Last Filed Vital Signs Vital Sign Reading Time Taken Comments Blood Pressure 114/64 08/15/2021 11:35 AM RESIDENTIAL DIRECT SUPPORT PROFESSIONAL Pulse 71 08/15/2021 11:35 AM RESIDENTIAL DIRECT SUPPORT PROFESSIONAL Temperature 37.1 ??C (98.8 ??F) 08/15/2021 11:35 AM RESIDENTIAL DIRECT SUPPORT PROFESSIONAL Respiratory Rate 15 08/15/2021 11:35 AM RESIDENTIAL DIRECT SUPPORT PROFESSIONAL Oxygen Saturation 97% 08/15/2021 11:35 AM RESIDENTIAL DIRECT SUPPORT PROFESSIONAL Inhaled Oxygen Concentration - - Weight 66.2 kg (146 lb) 08/15/2021 11:35 AM RESIDENTIAL DIRECT SUPPORT PROFESSIONAL Height 168.9 cm (5' 6.5) 08/15/2021 11:35 AM RESIDENTIAL DIRECT SUPPORT PROFESSIONAL Body Mass Index 23.21 08/15/2021 11:35 AM RESIDENTIAL DIRECT SUPPORT PROFESSIONAL documented in this encounter Patient Instructions Patient InstructionsMaranda Lowry MD - 08/15/2021 11:00 AM RESIDENTIAL DIRECT SUPPORT PROFESSIONAL Treatment??--General measures to reduce moisture pooling at the corners of the mouth include: ?Improving denture fit and cleaning ?Maintaining optimal oral hygiene ?Use of barrier creams Vaseline/petrolatum Rinse & wash off toothpaste Steroid ointment - last resort . 2 x day for 1-2 weeks. DENTIAL DIRECT SUPPORT PROFESSIONAL documented in this encounter Progress Notes Maranda [...] or fail to improve. Maranda Lowry MD [facility] Subjective Yamileth Sheikh is a 76 year old who presents for Patient presents with: Urgent Care Mouth Problem: sore in each corner of mouth. an established patient of [facility]. 2 weeks Developed sores on edges [...] ulcers Neurological: Mental Status: She is alert. DENTIAL DIRECT SUPPORT PROFESSIONAL documented in this encounter Plan of Treatment Upcoming Encounters Date Type Specialty Care Team Description 09/10/2022 Office Visit Internal Medicine Margot Branham MD [address] [place] [address] (Wo rk) documented as of this encounter Visit Diagnoses Diagnosis Angular cheilitis - Primary Diseases of lips documented in this encounter Additional Health Concerns Assessment Noted Time PHQ-9 Depression Total Score: 0 11/22/2019 10:49 AM CS T documented as of this encounter Care Teams Livestock Breeder Relationship Specialty Start Date End Date Margot Branham MD PCP - General Internal Medicine 10/28/[address] [place] [address] Carlota Lanedros MD MD Urology 04/10/[address] [place] [address] Michelle Montana, RN Registered Nurse Urology 05/07/17 Anh Costa APRN ASPHALT TILE FLOOR LAYER Nurse Practitioner Nurse Practitioner 10/07 Martinez Galicia MD MD Ophthalmology 04/18/18 [address] [place] [address] Sabino Romano DPM MD Podiatry 08/11/[address] [place] [address] [phone] Mehreen Johnston MD PhD MD Family Practice 11/15/[address] [place] [address] Margot Branham MD MD Internal Medicine 04/17/[address] [place] [address] [phone] Margot Branham MD Assigned PCP 09/15/[address] [place] [address] documented as of this encounter
--- OUTSIDE RECORDS SUMMARY | 2022-07-30 20:02 | XMS_ITS | Encounter Summary ---
:1945 Author Organization [facility] Address [address] [place] [address]. [place] [address] Care Team Providers Name Role Phone Carlota Landeros MD Unavailable Michelle Montana RN Unavailable Anh Costa BOTTOM BRUSHER ANGULAR JS DEVELOPER Unavailable Unavailable Martinez Galicia MD Unavailable Sabino Romano DPM Unavailable Mehreen Johnston MD PhD Unavailable [phone] LogeaMargot man MD Unavailable Martinez Galicia MD Unavailable LogMargot sadler MD Unavailable Margot Branham MD Primary Care Provider Encounter Details Date Type Department Care Team Description 12/30/2020 Immunization [facility] Andrea Rice Vaccination [place] [address] [place] [address] [address] [place], [place] [address] [phone] Social History Tobacco Use Types Packs/Day Years [...] contact Unable to assess 12/09/2020 7:37 AM HOSPICE SOCIAL WORKER with someone who was confirmed or suspected to have Coronavirus / COVID-19? documented as of this encounter Plan of Treatment Upcoming Encounters Date Type Specialty Care Team Description 09/10/2022 Office Visit Internal Medicine Margot Branham MD [address] [place] [address] [phone] (Wo rk) documented as of this encounter Visit Diagnoses Not on filedocumented in this encounter Additional Health Concerns Assessment Noted Time PHQ-9 Depression Total Score: 0 11/22/2019 10:49 AM CS T documented as of this encounter Care Teams Film Vault Supervisor Relationship Specialty Start Date End Date Margot Branham MD PCP - General Internal Medicine 10/28/[address] [place] [address] 326695 Carlota Landeros MD MD Urology 04/10/[address] [place], [place] [phone] Michelle Montana, MODESTA Registered Nurse Urology 05/07/17 Anh Costa APRN Nurse Practitioner Nurse Practitioner 10/07/17 Martinez Hernandez MD Ophthalmology 04/18/[address] [place] [address] [phone] Sabino Romano DPM MD Podiatry 08/11/18 [facility] [address] [address] Mehreen Johnston MD Family Practice 11/15/[address] [place] [address] [phone] Margot Branham MD MD Internal Medicine 04/17/[address] 624015 Martinez Galicai, Assigned Surgical 07/26/20 MD Provider [address] [place] [address] [phone] Margot Branham MD Assigned PCP 09/15/[address] [phone] documented as of this encounter
--- OUTSIDE RECORDS SUMMARY | 2022-07-30 20:02 | XMS_ITS | Encounter Summary ---
:1945 Author Organization [facility] Address [address] [place] [address]. [place] [address] Care Team Providers Name Role Phone Carlota Landeros MD Unavailable Michelle Montana RN Unavailable Anh Costa CONTRACT SPECIALIST GEAR HOBBER Unavailable Unavailable Martinez Galicia MD Unavailable Sabino Romano DPM Unavailable Mehreen Johnston MD PhD Unavailable [phone] LogeaMargot man MD Unavailable LogMargot sadler MD Unavailable LogMargot sadler MD Primary Care Provider Reason for Visit Reason Comments Medication Refill Encounter Details Date Type Department Care Team Description 08/11/2021 Refill [facility] Yasmine Vang, Medication Refill Clinic Gisella OLIVEROS [address] [facility] [address] [facility] 88 [address] [address] Flr,[facility] 300 [place], [place] [address] [phone] Social History Tobacco Use Types Packs/Day Years [...] Visit Internal Medicine Margot Branham MD [address] [place] [address] [phone] (Wo rk) documented as of this encounter Visit Diagnoses Diagnosis External hemorrhoids External hemorrhoids without mention of complication documented in this encounter Additional Health Concerns Assessment Noted Time PHQ-9 Depression Total Score: 0 11/22/2019 10:49 AM CS T documented as of this encounter Care Teams Tank Car Loader Relationship Specialty Start Date End Date Margot Branham MD PCP - General Internal Medicine 10/28/[address] [place] [address] [phone] Carlota Landeros MD MD Urology 04/10/[address] [place] [address] Michelle Montana, MODESTA Registered Nurse Urology 05/07/17 Anh Costa APRN GEAR HOBBER Nurse Practitioner Nurse Practitioner 10/07 Martinez Galicia MD MD Ophthalmology 04/18/[address] [place] [address] [phone] Sabino Romano DPM MD Podiatry 08/11/[address] [place] [address] [phone] Mehreen Johnston MD PhD MD Family Practice 11/15/[address] [place] [address] [phone] Margot Branham MD MD Internal Medicine 04/17/[address] [place] [address] [phone] Margot Branham MD Assigned PCP 09/15/[address] [address] documented as of this encounter
--- OUTSIDE RECORDS SUMMARY | 2022-07-30 20:02 | XMS_ITS | Encounter Summary ---
:1945 Author Organization [facility] Address [address] [place] [address]. [place] [address] Care Team Providers Name Role Phone Carlota Landeros MD Unavailable Michelle Montana RN Unavailable Anh Costa SPECIAL COLLECTIONS LIBRARIAN SPRAYER MACHINE Unavailable Unavailable Martinez Galicia MD Unavailable Sabino Romano DPM Unavailable Mehreen Johnston MD PhD Unavailable [phone] LogeaMargot man MD Unavailable Martinez Galicia MD Unavailable LogMargot sadler MD Unavailable Margot Branham MD Primary Care Provider Encounter Details Date Type Department Care Team Description [facility] [address] [place], [place] [phone] Social History Tobacco Use [...] contact Unable to assess 12/09/2020 7:37 AM POST TENSIONING IRONWORKER HELPER with someone who was confirmed or suspected to have Coronavirus / COVID-19? documented as of this encounter Plan of Treatment Upcoming Encounters Date Type Specialty Care Team Description 09/10/2022 Office Visit Internal Medicine Margot Branham MD [address] [place] [address] [phone] (Wo rk) documented as of this encounter Visit Diagnoses Not on filedocumented in this encounter Additional Health Concerns Assessment Noted Time PHQ-9 Depression Total Score: 0 11/22/2019 10:49 AM CS T documented as of this encounter Care Teams Plasterer Maintenance Relationship Specialty Start Date End Date Margot Branham MD PCP - General Internal Medicine 10/28/[address] [place] [address] [phone] Carlota Landeros MD MD Urology 04/10/[address] [place], [place] [address] Michelle Montana, MODESTA Registered Nurse Urology 05/07/17 Anh Costa APRN Nurse Practitioner Nurse Practitioner 10/07/17 SPRAYER MACHINE Martinez Galicia MD Ophthalmology 04/18/[address] [place] [address] [phone] Sabino Romano DPM MD Podiatry 08/11/18 [facility] [address] [phone] Mehreen Johnston MD Family Practice 11/15/[address] [place] [address] [phone] Margot Branham MD MD Internal Medicine 04/17/[address] [place] [address] [phone] Martinez Galicia Assigned Surgical 07/26/20 MD Provider [address] [place] [address] Margot Branham MD Assigned PCP 09/15/[address] [address] documented as of this encounter
--- OUTSIDE RECORDS SUMMARY | 2022-07-30 20:02 | XMS_ITS | Encounter Summary ---
:1945 Author Organization [facility] Address [address] [place] [address]. [place] [address] Care Team Providers Name Role Phone Carlota Landeros MD Unavailable Michelle Montana RN Unavailable Anh Costa MULTIPLE LAUNCH ROCKET SYSTEM CREWMEMBER RF MANAGER Unavailable Unavailable Martinez Galicia MD Unavailable Sabino Romano DPM Unavailable Mehreen Johnston MD PhD Unavailable [phone] LogMargot sadler MD Unavailable LogMargot sadler MD Unavailable Margot Branham MD Primary Care Provider Reason for Visit Reason Onset Date Comments Symptoms 10/13/2021 UTI concern Encounter Details Date Type Department Care Team Description 10/13/2021 Telephone [facility] Margot Branham MD Symptoms (UTI concern) Clinic Internal 9 [facility] Medicine [address] [address] [place], [place] [phone] [address] (Work) [phone] Social History Tobacco Use Types Packs/Day Years [...] with No / Unsure 10/13/2021 4:17 PM FACILITY MANAGER HISTOLOGY someone who was confirmed or suspected to have Coronavirus / COVID-19? documented as of this encounter Miscellaneous Notes Telephone Encounter - Filomena Desouza - 10/13/2021 2:15 PM CST [facility] Call Center Phone Message May [...] requesting an order to be placed at [facility]. Please inform patient once this is completed. Patient is requesting a call back today. Action Taken: Message routed to: [facility] PCC Travel Screening: Not Applicable Pt seen and treated. See chart. Aleena Collier RN 10:35 AM on 10/14/2021. LITY MANAGER HISTOLOGY documented in this encounter Plan of Treatment Upcoming Encounters Date Type Specialty Care Team Description 09/10/2022 Office Visit Internal Medicine Margot Branham MD [address] [place] [phone] (Wo rk) documented as of this encounter Visit Diagnoses Diagnosis Polyuria - Primary documented in this encounter Additional Health Concerns Assessment Noted Time PHQ-9 Depression Total Score: 0 11/22/2019 10:49 AM CS T documented as of this encounter Care Teams Sap Payroll Consultant Relationship Specialty Start Date End Date Margot Branham MD PCP - General Internal Medicine 10/28/[address] [place] [address] Carlota Landeros MD MD Urology 04/10/[address] [place], [place] [address] Michelle Montana, RN Registered Nurse Urology 05/07/17 Anh Costa APRN RF MANAGER Nurse Practitioner Nurse Practitioner 10/07 Martinez Galicia MD MD Ophthalmology 04/18/18 [address] [place], [place] [phone] Sabino Romano DPM MD Podiatry 08/11/18 [facility] [address] [address] Mehreen Johnston MD PhD MD Family Practice 11/15/[address] [place] [address] [phone] Margot Branham MD MD Internal Medicine 04/17/[address] [place] [address] [phone] Margot Branham MD Assigned PCP 09/15/[address] [place] [address] [phone] documented as of this encounter
--- OUTSIDE RECORDS SUMMARY | 2022-07-30 20:02 | XMS_ITS | Encounter Summary ---
:1945 Author Organization [facility] Address [address] [place] [address]. [place] [address] Care Team Providers Name Role Phone Carlota Landeros MD Unavailable Michelle Montana RN Unavailable Anh Costa WASTE HANDLING TECHNICIAN ENROLLMENT PROCESSOR Unavailable Unavailable Martinez Galicia MD Unavailable Sabino Romano DPM Unavailable Kyle Roberts MD Primary Care Provider Mehreen Johnston MD PhD Unavailable [phone] Margot Branham MD Unavailable Martinez Galicia MD Unavailable Encounter Details Date Type Department Care Team Description 09/06/2020 Therapy Visit [facility] Kevin Wynn ba ck pain; Rehabilitation Services [facility], PT Lumbar radiculopathy [address] [address] [phone] Social History Tobacco Use Types Packs/Day Years [...] with No / Unsure 09/06/2020 5:13 PM CLIENT EXPERIENCE MANAGER someone who was confirmed or suspected to have Coronavirus / COVID-19? documented as of this encounter Progress Notes MellisaKevin clemens Brianne, PT - 09/06/2020 5:20 PM CST Subjective: The history is provided by the patient. No certified court/medical interpreter was used. Physical Exam Objective: Standing Alignment: [...] standing and walking. Pt is leaving for [place] on 09/08/20 in preperation for L ALEKS surgery at [place] on 09/11/20. She plans to resumePT following [...] and time spent performing 1:1 timed codes. NT EXPERIENCE MANAGER documented in this encounter Plan of Treatment Upcoming Encounters Date Type Specialty Care Team Description 09/10/2022 Office Visit Internal Medicine Margot Branham MD [address] [phone] (Wo rk) documented as of this encounter Procedures Procedure Name Priority Date/Time Associated Diagnosis Comme nts ND THERAPEUTIC Routine 09/08/2020 2:35 PM Low back pain ACTIVITIES, EA 15 MIN CLIENT EXPERIENCE MANAGER Lumbar radiculopath y ND NEUROMUSCULAR Routine 09/08/2020 2:35 PM Low back cameron n REEDUCATION,1+ AREAS, EA CLIENT EXPERIENCE MANAGER Lumbar radiculop athy 15 MIN ND THERAPEUTIC Routine 09/08/2020 2:35 PM Low back pain EXERCISES. EA 15 MIN CLIENT EXPERIENCE MANAGER Lumbar radiculopathy documented in this encounter Visit Diagnoses Diagnosis Low back pain Lumbago Lumbar radiculopathy Thoracic or lumbosacral neuritis or radi culitis, unspecified documented in this encounter Additional Health Concerns Assessment Noted Time PHQ-9 Depression Total Score: 0 11/22/2019 10:49 AM CS T documented as of this encounter Care Teams Screen Printing Inspector Relationship Specialty Start Date End Date Kyle Roberts MD PCP - General Family Practice 11/15/19 10/27/[address] [place], [place] [phone] Carlota Landeros MD MD Urology 04/10/[address] [place], [place] [address] Michelle Montana, RN Registered Nurse Urology 05/07/17 Anh Costa APRN Nurse Practitioner Nurse Practitioner 10/07/17 Martinez Hernandez MD Ophthalmology 04/18/[address] [place] [address] Sabino Romano DPM MD Podiatry 08/11/18 [facility] [address] [address] Mehreen Johnston MD Family Practice 11/15/19 MD PhD [address] [place] [address] Margot Branham MD MD Internal Medicine 04/17/[address] [place] [address] Martinez Galicia, Assigned Surgical 07/26/20 MD Provider [address] [place] [address] documented as of this encounter
--- OUTSIDE RECORDS SUMMARY | 2022-07-30 20:02 | XMS_ITS | Encounter Summary ---
:1945 Author Organization [facility] Address [address] [place] [address]. [place] [address] Care Team Providers Name Role Phone Carlota Landeros MD Unavailable Michelle Montana RN Unavailable Anh Costa EMG TECHNICIAN DRONE PILOT Unavailable Unavailable Martinez Galicia MD Unavailable Sabino Romano DPM Unavailable Mehreen Johnston MD PhD Unavailable [phone] LogMargot sadler MD Unavailable Martinez Galicia MD [...] Office Visit Internal Medicine Margot Branham MD [address] [place] [address] [phone] (Wo rk) documented as of this encounter Visit Diagnoses Not on filedocumented in this encounter Additional Health Concerns Assessment Noted Time PHQ-9 Depression Total Score: 0 11/22/2019 10:49 AM CS T documented as of this encounter Care Teams Rubber Liner Relationship Specialty Start Date End Date Margot Branham MD PCP - General Internal Medicine 10/28/[address] [place] [address] [phone] Carlota Landeros MD MD Urology 04/10/[address] [place], [place] [address] Michelle Montana, MODESTA Registered Nurse Urology 05/07/17 Anh Costa APRN Nurse Practitioner Nurse Practitioner 10/07/17 DRONE PILOT Martinez Galicia MD Ophthalmology 04/18/[address] [place] [address] [phone] Sabino Romano DPM MD Podiatry 08/11/[address] [phone] Mehreen Johnston MD Family Practice 11/15/[address] [place] [phone] Margot Branham MD MD Internal Medicine 04/17/[address] [place] [address] [phone] Martinez Galicia, Assigned Surgical 07/26/20 MD Provider [address] [place] [address] [phone] Margot Branham MD Assigned PCP 09/15/[address] [address] documented as of this encounter
--- OUTSIDE RECORDS SUMMARY | 2022-07-30 20:02 | XMS_ITS | Encounter Summary ---
:1945 Author Organization [facility] Address [address] [place] [address]. [place] [address] Care Team Providers Name Role Phone Carlota Landeros MD Unavailable Michelle Montana RN Unavailable Anh Costa PUBLIC AFFAIRS MANAGER NUT SHELLER Unavailable Unavailable Martinez Galicia MD Unavailable Sabino Romano DPM Unavailable Mehreen Johnston MD PhD Unavailable [phone] LogeaMargot man MD Unavailable Martinez Galicia MD Unavailable LogMargot sadler MD Unavailable LogMargot sadler MD Primary Care Provider Encounter Details Date Type Department Care Team Description 01/08/2021 Therapy Visit [facility] Kevin Wynn DDD (d egenerative Rehabilitation Services P, PT disc disease), [facility] [address] [place] [address] [phone] Social History Tobacco Use Types Packs/Day Years [...] Internal Medicine Margot Branham MD [address] [phone] (Wo rk) documented as of this encounter Procedures Procedure Name Priority Date/Time Associated Diagnosis Comme nts NM MANUAL THERAPY, EA 15 Routine 01/12/2021 12:21 PM DDD (dege nerative MIN CDT disc disease), lumbar NM NEUROMUSCULAR Routine 01/12/2021 12:21 PM DDD (degenerative REEDUCATION,1+ AREAS, EA CDT disc disease), l umbar 15 MIN NM THERAPEUTIC EXERCISES. Routine 01/12/2021 12:21 PM DDD (deg enerative EA 15 MIN CDT disc disease), lumbar documented in this encounter Visit Diagnoses Diagnosis DDD (degenerative disc disease), lumbar Degeneration of lumbar or lumbosacral in tervertebral disc documented in this encounter Additional Health Concerns Assessment Noted Time PHQ-9 Depression Total Score: 0 11/22/2019 10:49 AM CS T documented as of this encounter Care Teams Cream Separator Operator Relationship Specialty Start Date End Date Margot Branham MD PCP - General Internal Medicine 10/28/[address] [phone] Carlota Landeros MD MD Urology 04/10/[address] [place], [place] [address] Michelle Montana, MODESTA Registered Nurse Urology 05/07/17 Anh Costa APRN Nurse Practitioner Nurse Practitioner 10/07/17 Martinez Hernandez MD Ophthalmology 04/18/[address] [place] [address] [phone] Sabino Romano DPM MD Podiatry 08/11/[address] [place] [phone] Mehreen Johnston MD Family Practice 11/15/19 MD PhD [address] [place] [phone] Margot Branham MD MD Internal Medicine 04/17/[address] [place] [address] [phone] Martinez Galicia, Assigned Surgical 07/26/20 MD Provider [address] [place] [address] [phone] Margot Branham MD Assigned PCP 09/15/[address] [place] [address] [phone] documented as of this encounter
--- OUTSIDE RECORDS SUMMARY | 2022-07-30 20:02 | XMS_ITS | Encounter Summary ---
:1945 Author Organization [facility] Address [address] [place] [address]. [place] [address] Care Team Providers Name Role Phone Carlota Landeros MD Unavailable Michelle Montana RN Unavailable Anh Costa APRN BASS SINGER Unavailable Unavailable Martinez Galicia MD Unavailable Sabino Romano DPM Unavailable Kyle Roberts MD Primary Care Provider Mehreen Johnston MD PhD Unavailable [phone] LogMargot sadler MD Unavailable Martinez Galicia MD Unavailable LogMargot sadler MD Unavailable Encounter Details Date Type Department Care Team Description 09/06/2020 [facility] Only [facility] Anh Costa Hyperlipid emia LDL goal [facility] CLAUDIA Marsh BASS SINGER <100 Cardiovascular Disease Prevention [address] [place] [address] Social History Tobacco Use Types [...] with No / Unsure 09/06/2020 5:13 PM GREEN BUILDING DESIGN SPECIALIST someone who was confirmed or suspected to have Coronavirus / COVID-19? documented as of this encounter Plan of Treatment Upcoming Encounters Date Type Specialty Care Team Description 09/10/2022 Office Visit Internal Medicine Margot Branham MD [address] [place] [address] [phone] (Wo rk) documented as of this encounter Visit Diagnoses Diagnosis Hyperlipidemia LDL goal <100 Other and unspecified hyperlipidemia documented in this encounter Additional Health Concerns Assessment Noted Time PHQ-9 Depression Total Score: 0 11/22/2019 10:49 AM CS T documented as of this encounter Care Teams Last Trimmer Relationship Specialty Start Date End Date Kyle Roberts MD PCP - General Family Practice 11/15/19 10/27/[address] [place], [place] [address] Carlota Landeros MD MD Urology 04/10/[address] [place], [place] [phone] Michelle Montana, MODESTA Registered Nurse Urology 05/07/17 Anh Costa APRN Nurse Practitioner Nurse Practitioner 10/07/17 Martinez Hernandez MD Ophthalmology 04/18/[address] [place] [address] [phone] Sabino Romano DPM MD Podiatry 08/11/[address] [place] [phone] Mehreen Johnston MD Family Practice 11/15/[address] [place] [address] [phone] Margot Branham MD MD Internal Medicine 04/17/[address] [place] [phone] Martinez Galicia, Assigned Surgical 07/26/20 Provider [address] [place], [place] [address] Margot Branham MD Assigned PCP 09/15/[address] [phone] documented as of this encounter
--- OUTSIDE RECORDS SUMMARY | 2022-07-30 20:02 | XMS_ITS | Encounter Summary ---
:1945 Author Organization [facility] Address [address] [place] [address]. [place] [address] Care Team Providers Name Role Phone Carlota Landeros MD Unavailable Michelle Montana RN Unavailable Anh Costa GLASS SANDER SUPERVISOR WOOL SHEARING Unavailable Unavailable Martinez Galicia MD Unavailable Sabino Romano DPM Unavailable Mehreen Johnston MD PhD Unavailable [phone] LogeaMargot man MD Unavailable LogeaMargot man MD Unavailable LogMargot sadler MD Primary Care Provider Reason for Visit Reason Comments Urgent Care UTI Encounter Details Date Type Department Care Team Description 10/13/2021 Office Visit [facility] Osito Wilkinson Dysuria (Primary Dx); Urgent Care Chelan Jody, BUGGY LADLE TENDER Kidney infection; [address] [facility] Fever, unspecified fever cause; [address] [place], [place] Antibiotic[place] [phone] Social History Tobacco Use Types Packs/Day [...] with No / Unsure 10/13/2021 4:17 PM ASSOCIATE PROFESSOR OF ART someone who was confirmed or suspected to have Coronavirus / COVID-19? documented as of this encounter Last Filed Vital Signs Vital Sign Reading Time Taken Comments Blood Pressure 108/62 10/13/2021 4:51 PM ASSOCIATE PROFESSOR OF ART Pulse 65 10/13/2021 4:51 PM ASSOCIATE PROFESSOR OF ART Temperature 37.6 ??C (99.7 ??F) 10/13/2021 4:51 PM ASSOCIATE PROFESSOR OF ART Respiratory Rate 16 10/13/2021 4:51 PM ASSOCIATE PROFESSOR OF ART Oxygen Saturation 96% 10/13/2021 4:51 PM ASSOCIATE PROFESSOR OF ART Inhaled Oxygen Concentration - - Weight 64.9 kg (143 lb) 10/13/2021 4:51 PM ASSOCIATE PROFESSOR OF ART Height 167.6 cm (5' 6) 10/13/2021 4:51 PM ASSOCIATE PROFESSOR OF ART Body Mass Index 23.08 10/13/2021 4:51 PM ASSOCIATE PROFESSOR OF ART documented in this encounter Progress Notes Osito Wilkinson, BUGGY LADLE TENDER - 10/13/2021 4:20 PM CST Chief Complaint [...] Status --------- ------ CBC with platelets and d...[[id number]] In process Please view results for these [...] agreed to plan and verbalized understanding. JONATHON Mathur-[facility] CIATE PROFESSOR OF ART documented in this encounter Miscellaneous Notes Result [...] sent a prescription for amoxicillin to the [facility]. She need to complete the 10 days of the ciprofloxacin and the 10 days of the amoxicillin. I sent a my chart message to her as well. ?? Thank you, Lisa Nur MD CIATE PROFESSOR OF ART Result Encounter Note - Jana Mora CMA - 10/13/2021 4:20 PM CST Pt was called and message was left notifying her of additional medication (Amoxicillin) being sent to Pharmacy. Jana Dupree MA Pt will call clinic with any questions or concerns. Jana Dupree MA CIATE PROFESSOR OF ART Addendum Note - Osito Wilkinson NP - 10/13/2021 4:20 PM ASSOCIATE PROFESSOR OF ART Addended by: OSITO WILKINSON on: 10/13/2021 05:23 PM Modules accepted: Orders CIATE PROFESSOR OF ART documented in this encounter Plan of Treatment Upcoming Encounters Date Type Specialty Care Team Description 09/10/2022 Office Visit Internal Medicine LogeaisMargot MD [address] [id number] (Wo rk) documented as of this encounter Procedures Procedure Name Priority Date/Time Associated Comments Diagnosis CBC WITH PLATELETS AND Routine 10/13/2021 5:16 PM Dysuri a Results for this DIFFERENTIAL ASSOCIATE PROFESSOR OF ART Fever, unspecified procedure are in fever cause the results section. CBC WITH PLATELETS & Routine 10/13/2021 5:16 PM Dysuria Results for this DIFFERENTIAL ASSOCIATE PROFESSOR OF ART Fever, unspecified procedure are in fever cause the results section. COMPREHENSIVE Routine 10/13/2021 5:16 PM Dysuria Results for this METABOLIC PANEL ASSOCIATE PROFESSOR OF ART Fever, unspecified proced ure are in fever cause the results section. URINE MICROSCOPIC Routine 10/13/2021 4:40 PM Dysuria Resu lts for this ASSOCIATE PROFESSOR OF ART procedure are i n the results section. URINE CULTURE Routine 10/13/2021 4:40 PM Dysuria Results for this ASSOCIATE PROFESSOR OF ART procedure are i n the results section. documented in this encounter Results CBC with platelets and differential (10/13/2021 5:16 PM ASSOCIATE PROFESSOR OF ART) Analysis Performed At Patho logist Time Signature WBC Count 6.2 4.0 - 11.0 10/13/2021 [facility] 10e3/uL 5:21 PM ASSOCIATE PROFESSOR OF ART RBC Count 4.74 3.80 - 10/13/2021 [facility] 5.20 5:21 PM ASSOCIATE PROFESSOR OF ART 10e6/uL Hemoglobin 14.4 11.7 - 10/13/2021 [facility] 15.7 g/dL 5:21 PM ASSOCIATE PROFESSOR OF ART Hematocrit 42.9 35.0 - 10/13/2021 [facility] 47.0 % 5:21 PM ASSOCIATE PROFESSOR OF ART MCV 91 78 - 100 10/13/2021 [facility] fL 5:21 PM ASSOCIATE PROFESSOR OF ART MCH 30.4 26.5 - 10/13/2021 [facility] 33.0 pg 5:21 PM ASSOCIATE PROFESSOR OF ART MCHC 33.6 31.5 - 10/13/2021 [facility] 36.5 g/dL 5:21 PM ASSOCIATE PROFESSOR OF ART RDW 12.7 10.0 - 10/13/2021 [facility] 15.0 % 5:21 PM ASSOCIATE PROFESSOR OF ART Platelet Count 173 150 - 450 10/13/2021 [facility] 10e3/uL 5:21 PM ASSOCIATE PROFESSOR OF ART % Neutrophils 68 % 10/13/2021 [facility] 5:21 PM ASSOCIATE PROFESSOR OF ART % Lymphocytes 24 % 10/13/2021 [facility] 5:21 PM ASSOCIATE PROFESSOR OF ART % Monocytes 6 % 10/13/2021 [facility] 5:21 PM ASSOCIATE PROFESSOR OF ART % Eosinophils 1 % 10/13/2021 [facility] 5:21 PM ASSOCIATE PROFESSOR OF ART % Basophils 0 % 10/13/2021 [facility] 5:21 PM ASSOCIATE PROFESSOR OF ART % Immature 0 % 10/13/2021 [facility] Granulocytes 5:21 PM ASSOCIATE PROFESSOR OF ART Absolute 4.2 1.6 - 8.3 10/13/2021 [facility] Neutrophils 10e3/uL 5:21 PM ASSOCIATE PROFESSOR OF ART Absolute 1.5 0.8 - 5.3 10/13/2021 [facility] Lymphocytes 10e3/uL 5:21 PM ASSOCIATE PROFESSOR OF ART Absolute 0.4 0.0 - 1.3 10/13/2021 [facility] Monocytes 10e3/uL 5:21 PM ASSOCIATE PROFESSOR OF ART Absolute 0.1 0.0 - 0.7 10/13/2021 [facility] Eosinophils 10e3/uL 5:21 PM ASSOCIATE PROFESSOR OF ART Absolute 0.0 0.0 - 0.2 10/13/2021 [facility] Basophils 10e3/uL 5:21 PM ASSOCIATE PROFESSOR OF ART Absolute Immature 0.0 <=0.4 10/13/2021 [facility] R[facility] Granulocytes 10e3/uL 5:21 PM ASSOCIATE PROFESSOR OF ART Specimen Anatomical Collection Method / Collection Time Recei yenny Time (Source) Location / Volume Laterality Blood STRUCTURE OF RIGHT Venipuncture / 10/13/2021 5:16 10/04 5:16 UPPER LIMB / Unknown PM ASSOCIATE PROFESSOR OF ART PM ASSOCIATE PROFESSOR OF ART Unknown Osito Wilkinson NP LAB - BLOOD ORDERABLES Performing Organization Address City/State/ZIP Code [place] [address] [phone] [facility] [facility] number, 1st floor of clinic) [place] [address], [facility] [facility] (no room number, 1st floor of clinic) (ABNORMAL) Comprehensive metabolic panel (BMP + Alb, Alk Phos, ALT, AST, Total. Bili, TP) (10/13/2021 5:16 PM ASSOCIATE PROFESSOR OF ART) Analysis Performed At Patho logist Time Signature Sodium 140 133 - 144 10/14/2021 [facility] mmol/L 4:31 PM ASSOCIATE PROFESSOR OF ART Potassium 4.0 3.4 - 5.3 10/14/2021 [facility] mmol/L 4:31 PM ASSOCIATE PROFESSOR OF ART Chloride 108 94 - 109 10/14/2021 [facility] mmol/L 4:31 PM ASSOCIATE PROFESSOR OF ART Carbon Dioxide 26 20 - 32 10/14/2021 [facility] (CO2) mmol/L 4:31 PM ASSOCIATE PROFESSOR OF ART Anion Gap 6 3 - 14 10/14/2021 [facility] mmol/L 4:31 PM ASSOCIATE PROFESSOR OF ART Urea Nitrogen 13 7 - 30 10/14/2021 [facility] mg/dL 4:31 PM ASSOCIATE PROFESSOR OF ART Creatinine 1.02 0.52 - 10/14/2021 [facility] 1.04 mg/dL 4:31 PM ASSOCIATE PROFESSOR OF ART Calcium 9.1 8.5 - 10.1 10/14/2021 [facility] mg/dL 4:31 PM ASSOCIATE PROFESSOR OF ART Glucose 99 70 - 99 10/14/2021 [facility] mg/dL 4:31 PM ASSOCIATE PROFESSOR OF ART Alkaline 68 40 - 150 10/14/2021 [facility] Phosphatase U/L 4:31 PM ASSOCIATE PROFESSOR OF ART AST 19 0 - 45 U/L 10/14/2021 [facility] 4:31 PM ASSOCIATE PROFESSOR OF ART ALT 26 0 - 50 U/L 10/14/2021 [facility] 4:31 PM ASSOCIATE PROFESSOR OF ART Protein Total 6.8 6.8 - 8.8 10/14/2021 [facility] g/dL 4:31 PM ASSOCIATE PROFESSOR OF ART Albumin 3.8 3.4 - 5.0 10/14/2021 [facility] g/dL 4:31 PM ASSOCIATE PROFESSOR OF ART Bilirubin Total 0.6 0.2 - 1.3 10/14/2021 [facility] mg/dL 4:31 PM ASSOCIATE PROFESSOR OF ART GFR Estimate 57 (L) >60 10/14/2021 [facility] mL/min/1.7 4:31 PM ASSOCIATE PROFESSOR OF ART 3m2 Comment: Effective September 23, 2021 eGF Rcr in adults is calculated using the 2020 CKD-EPI creatinine equation which includ es age and gender (Ironworker Apprentice et al., NEJM, DOI: 10.1056/ACZZyw2605098) Specimen Anatomical Collection Method / Collection Time Recei yenny Time (Source) Location / Volume Laterality Blood STRUCTURE OF RIGHT Venipuncture / 10/13/2021 5:16 10/04 5:16 UPPER LIMB / Unknown PM ASSOCIATE PROFESSOR OF ART PM ASSOCIATE PROFESSOR OF ART Unknown Osito Wilkinson NP LAB - BLOOD ORDERABLES Performing Organization Address City/State/ZIP Code Phon e Number [facility] [place], [place] [phone] [facility] [phone] Lab (no room number, 1st floor of clinic) [place], [place] [phone] [facility] [phone] [address] Lab (no room number, 1st floor of clinic) (ABNORMAL) Urine Culture Aerobic Bacterial - lab collect (10/13/2021 4:40 PM ASSOCIATE PROFESSOR OF ART) [facility] ZikBit Method Time Signature Culture >100,000 CFU/mL JAKUB 10/17/2021 [facility] Enterococcus 10:42 AM ASSOCIATE PROFESSOR OF ART LABORATORY faecalis (A) Specimen Anatomical Collection Method Collection Time Receive d Time (Source) Location / / Volume Laterality Urine MID-STREAM URINE Non-blood 10/13/2021 4:40 PM 10/13 5:38 SPECIMEN / Unknown Collection / ASSOCIATE PROFESSOR OF ART PM ASSOCIATE PROFESSOR OF ART Unknown Narrative [facility] - 10/17/2021 10:42 AM ASSOCIATE PROFESSOR OF ART Susceptibility testing requested by Dr Brii Nur [phone] for ciprofloxacin. Organism Antibiotic Method Susceptibility Enterococcus [...] Code Phon e Number [facility] LABORATORY [facility] [place] [phone] Diag. Lab [address] [facility], Room [address]297 [facility] Infectious [place], [place] [phone] Diseases Diagnostic [phone], [facility] Lab (IDDL) [address] [facility], Room D297 (ABNORMAL) Urine Microscopic (10/13/2021 4:40 PM ASSOCIATE PROFESSOR OF ART) [facility] Method Time Signature Bacteria Urine Moderate (A) None Seen JAKUB 10/13/2021 [facility] /HPF 4:56 PM ASSOCIATE PROFESSOR OF ART RBC Urine 10-25 (A) 0-2 /HPF JAKUB 10/13/2021 [facility] /HPF 4:56 PM ASSOCIATE PROFESSOR OF ART WBC Urine 0-5 0-5 /HPF JAKUB 10/13/2021 [facility] /HPF 4:56 PM ASSOCIATE PROFESSOR OF ART Squamous Few (A) None Seen JAKUB 10/13/2021 [facility] Epithelials /LPF 4:56 PM ASSOCIATE PROFESSOR OF ART Urine Mucus Urine Present (A) None Seen JAKUB 10/13/2021 [facility] /LPF 4:56 PM ASSOCIATE PROFESSOR OF ART Specimen Anatomical Collection Method Collection Time Receive d Time (Source) Location / / Volume Laterality Urine MID-STREAM URINE Non-blood 10/13/2021 4:40 PM 10/13 4:41 SPECIMEN / Unknown Collection / ASSOCIATE PROFESSOR OF ART PM ASSOCIATE PROFESSOR OF ART Unknown Narrative [facility] - 10/13/2021 4:56 PM ASSOCIATE PROFESSOR OF ART Urine Culture not indicated Mary Jo Wright LAB - URINE ORDERABLES Performing Organization Address City/State/ZIP Code [place] [address] [facility] [address] [facility] Lab (no room number, 1st floor of clinic) [place] [address], [facility] [address] [facility] Lab (no room number, 1st floor of clinic) documented in this encounter Visit Diagnoses Diagnosis Dysuria - Primary Kidney infection Infection of kidney, unspecified Fever, unspecified fever cause Antibiotic-induced yeast infection documented in this encounter Additional Health Concerns Assessment Noted Time PHQ-9 Depression Total Score: 0 11/22/2019 10:49 AM CS T documented as of this encounter Care Teams Nail Professional Relationship Specialty Start Date End Date Margot Branham MD PCP - General Internal Medicine 10/28/[address] [address] Carlota Landeros MD MD Urology 04/10/[address] [place] [address] Michelle Montana, MODESTA Registered Nurse Urology 05/07/17 Anh Costa APRN SUPERVISOR WOOL SHEARING Nurse Practitioner Nurse Practitioner 10/07 Martinez Galicia MD MD Ophthalmology 04/18/18 [address] [place], [place] [phone] Sabino Romano DPM MD Podiatry 08/11/18 [facility] [address] [address] Mehreen Johnston MD PhD MD Family Practice 11/15/[address] [place] [address] [phone] Margot Branham MD MD Internal Medicine 04/17/[address] [place] [address] [phone] Margot Branham MD Assigned PCP 09/15/[address] [place] [address] [phone] documented as of this encounter
--- OUTSIDE RECORDS SUMMARY | 2022-07-30 20:02 | XMS_ITS | Encounter Summary ---
:1945 Author Organization [facility] Address [address] [place] [address]. [place] [address] Care Team Providers Name Role Phone Carlota Landeros MD Unavailable Michelle Montana RN Unavailable Anh Costa AMMONIA TECHNICIAN SUPPLY CHAIN MANAGER Unavailable Unavailable Martinez Galicia MD Unavailable Sabino Romano DPM Unavailable Kyle Roberts MD Primary Care Provider Mehreen Johnston MD PhD Unavailable [phone] Margot Branham MD Unavailable Martinez Galicia MD Unavailable Reason for Visit Rehab Therapy Physical Therapy (Routine) - Closed Specialty Diagnoses / Procedures Referred By Contact Refer red To Contact Diagnoses Acute bilateral low back pain with right-sided sciatica Margot Branham MD [address] [address] Referral ID Status Reason Start Date Expiration Date Visits Requ ested Visits Authorized [id number] Closed 09/02/2020 09/02/2021 1 1 Encounter Details Date Type Department Care Team Description 09/04/2020 Therapy Visit [facility] Rikki Roajs, Acute bilateral low back pain with right-sided sciatica; Rehabilitation Services PT Low back pain; [facility] ROBBI PRECIADO Lumbar radiculopathy [address] [place] [address] [phone] Social History Tobacco Use Types Packs/Day Years [...] with No / Unsure 09/04/2020 9:28 AM 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 documented as of this encounter Progress Notes Rikki Rojas, PT - 09/04/2020 9:30 AM CST [facility] Initial Evaluation Subjective: Therapist [...] lumbar: Baseline 5/10 LBP and pain down shelter to hamstring. AROM Lumbar: Flexion: To ankles, no increase in sxs Ext: 75% ROM, no change in sxs Side Bend: Left: To knee, no change in sxs Right: To knee, slight increase in LBP Rotation: Left: Right: Side [place]: Left: Right: Lumbar Myotomes: normal Lumbar Dermtomes: [...] for this information) Short term and termite control technician goals: (See Goal Flow Sheet for this [...] and time spent performing 1:1 timed codes. SICS TEACHER documented in this encounter Plan of Treatment Upcoming Encounters Date Type Specialty Care Team Description 09/10/2022 Office Visit Internal Medicine Logeais, MD Margot [address] [place] [address] [address] [place], [place] [phone] (Wo rk) documented as of this encounter Procedures Procedure Name Priority Date/Time Associated Diagnosis Comme nts [facility] THERAPEUTIC Routine 09/04/2020 10:47 AM Acute bilateral low back ACTIVITIES, EA 15 MIN CLASSICS TEACHER pain with right-justin ed sciatica Low back pain Lumbar radiculopathy [facility] THERAPEUTIC Routine 09/04/2020 10:47 AM Acute bilateral low back EXERCISES. EA 15 MIN CLASSICS TEACHER pain with right-side d sciatica Low back [...] documented as of this encounter Care Teams Window Shade Cutter Relationship Specialty Start Date End Date Kyle Roberts MD PCP - General Family Practice 11/15/19 10/27/[address] [place], [place] [address] Carlota Landeros MD MD Urology 04/10/[address] [place], [place] [phone] Michelle Montana, MODESTA Registered Nurse Urology 05/07/17 Anh Costa APRN Nurse Practitioner Nurse Practitioner 10/07/17 Martinez Hernandez MD Ophthalmology 04/18/[address] [place] [phone] Sabino Romano DPM MD Podiatry 08/11/[address] [phone] Mehreen Johnston MD Family Practice 11/15/[address] [place] [address] [phone] Margot Branham MD MD Internal Medicine 04/17/[address] [place] [address] [phone] Martinez Galicia, Assigned Surgical 07/26/[address] [place] [address] [phone] documented as of this encounter
--- OUTSIDE RECORDS SUMMARY | 2022-07-30 20:02 | XMS_ITS | Encounter Summary ---
:1945 Author Organization [facility] Address [address] [place] [address]. [place] [address] Care Team Providers Name Role Phone Carlota Landeros MD Unavailable Michelle Montana RN Unavailable Anh Costa MAYONNAISE MIXER WATER SUPPLY ENGINEER Unavailable Unavailable Martinez Galicia MD Unavailable Sabino Romano DPM Unavailable Kyle Roberts MD Primary Care Provider Mehreen Johnston MD PhD Unavailable [phone] Margot Branham MD Unavailable Martinez Galicia MD [...] with No / Unsure 09/04/2020 9:28 AM PSYCHOPAEDIC NURSE someone who was confirmed or suspected to have Coronavirus / COVID-19? documented as of this encounter Plan of Treatment Upcoming Encounters Date Type Specialty Care Team Description 09/10/2022 Office Visit Internal Medicine Margot Branham MD [address] [place] [address] (Wo rk) documented as of this encounter Visit Diagnoses Not on filedocumented in this encounter Additional Health Concerns Assessment Noted Time PHQ-9 Depression Total Score: 0 11/22/2019 10:49 AM CS T documented as of this encounter Care Teams Workforce Manager Relationship Specialty Start Date End Date Kyle Roberts MD PCP - General Family Practice 11/15/19 10/27/[address] [place], [place] [address] Carlota Landeros MD MD Urology 04/10/[address] [place], [place] [phone] Michelle Montana, RN Registered Nurse Urology 05/07/17 Anh Costa APRN Nurse Practitioner Nurse Practitioner 10/07/17 WATER SUPPLY ENGINEER Martinez Galicia MD Ophthalmology 04/18/[address] [place] [phone] Sabino Romano DPM MD Podiatry 08/11/[address] [place] [phone] Mehreen Johnston MD Family Practice 11/15/19 MD PhD [address] [place] [address] [phone] Margot Branham MD MD Internal Medicine 04/17/[address] [place] [address] [phone] Martinez Galicia, Assigned Surgical 07/26/20 MD Provider [address] [place] [address] [phone] documented as of this encounter
--- OUTSIDE RECORDS SUMMARY | 2022-07-30 20:02 | XMS_ITS | Encounter Summary ---
:1945 Author Organization [facility] Address [address] [place] [address]. 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 documented as of this encounter Plan of Treatment Upcoming Encounters Date Type Specialty Care Team Description 09/10/2022 Office Visit Internal Medicine LogMargot sadler MD [address] [place] [address] (Wo rk) documented as of this encounter Visit Diagnoses Not on filedocumented in this encounter Additional Health Concerns Assessment Noted Time PHQ-9 Depression Total Score: 0 11/22/2019 10:49 AM CS T documented as of this encounter Care Teams Superintendent Nonselling Relationship Specialty Start Date End Date Margot Branham MD PCP - General Internal Medicine 10/28/[address] [place] [address] [phone] Carlota Landeros MD MD Urology 04/10/[address] [place], [place] [address] Michelle Montana, RN Registered Nurse Urology 05/07/17 Anh Costa APRN EMPLOYEE TRAINING SPECIALIST Nurse Practitioner Nurse Practitioner 10/07 Martinez Galicia MD MD Ophthalmology 04/18/[address] [place] [address] [phone] Sabino Romano DPM MD Podiatry 08/11/[address] [phone] Mehreen Johnston MD PhD MD Family Practice 11/15/[address] [place] [address] Margot Branham MD MD Internal Medicine 04/17/[address] [place] [address] [phone] Margot Branham MD Assigned PCP 09/15/[address] [place] [address] documented as of this encounter
--- OUTSIDE RECORDS SUMMARY | 2022-07-30 20:02 | XMS_ITS | Encounter Summary ---
:1945 Author Organization [facility] Address [address] [place] [address]. [place] [address] Care Team Providers Name Role Phone Carlota Landeros MD Unavailable Michelle Montana RN Unavailable Anh Costa PET STORE MERCHANDISER COVER CUTTER Unavailable Unavailable Martinez Galicia MD Unavailable Sabino Romano DPM Unavailable Mehreen Johnston MD PhD Unavailable [phone] LogeaMargot man MD Unavailable LogMargot sadler MD Unavailable LogMargot sadler MD Primary Care Provider Reason for Visit Reason Comments Medication Refill Encounter Details Date Type Department Care Team Description 08/11/2021 Refill [facility] Yasmine Vang, Medication Refill Clinic Gisella OLIVEROS [address] [place] [facility] 88 [phone] 3rd Flr,[facility] [address] [place], [place] [phone] Social History Tobacco Use Types Packs/Day Years [...] Visit Internal Medicine Margot Branham MD [address] [place] [address] [phone] (Wo rk) documented as of this encounter Visit Diagnoses Diagnosis External hemorrhoids External hemorrhoids without mention of complication documented in this encounter Additional Health Concerns Assessment Noted Time PHQ-9 Depression Total Score: 0 11/22/2019 10:49 AM CS T documented as of this encounter Care Teams Health Psychologist Relationship Specialty Start Date End Date Margot Branham MD PCP - General Internal Medicine 10/28/[address] [place] [address] [phone] Carlota Landeros MD MD Urology 04/10/[address] [place] [address] Michelle Montana, MODESTA Registered Nurse Urology 05/07/17 Anh Costa APRN COVER CUTTER Nurse Practitioner Nurse Practitioner 10/07 Martinez Galicia MD MD Ophthalmology 04/18/[address] [place] [address] [phone] Sabino Romano DPM MD Podiatry 08/11/[address] [place] [address] [phone] Mehreen Johnston MD PhD MD Family Practice 11/15/[address] [place] [place] [address] [phone] Margot Branham MD MD Internal Medicine 04/17/[address] [place] [address] [phone] Margot Branham MD Assigned PCP 09/15/[address] [address] documented as of this encounter
--- OUTSIDE RECORDS SUMMARY | 2022-07-30 20:02 | XMS_ITS | Encounter Summary ---
:1945 Author Organization [place] Address [address] [place] [address]. [place] [address] Care Team Providers Name Role Phone Carlota Landeros MD Unavailable Michelle Montana RN Unavailable Anh Costa CHRISTIAN EDUCATION DIRECTOR PASTE THINNER Unavailable Unavailable Martinez Galicia MD Unavailable Sabino Romano DPM Unavailable Kyle Roberts MD Primary Care Provider Mehreen Johnston MD PhD Unavailable [phone] Margot Branham MD Unavailable Martinez Galicia MD Unavailable Reason for Visit Diagnostic Imaging XR (Routine) - Closed Specialty Diagnoses / Procedures Referred By Contact Refer red To Contact Diagnoses Acute bilateral low back pain with right-sided sciatica Margot Branham MD Procedures XR Lumbar Spine 2-[address] 45 Referral ID Status Reason Start Date Expiration Date Visits Requ ested Visits Authorized [id number] Closed 09/02/2020 09/02/2021 1 1 Encounter Details Date Type Department Care Team Description 09/02/2020 Ancillary Procedure [facility] Margot Branham A cute bilateral low [facility] June OLIVEROS back pain with [place] [address] right-sided sciatica [address] [place] [address] [phone] Social History Tobacco Use Types Packs/Day Years [...] with No / Unsure 09/02/2020 12:52 PM QUILLER TENDER someone who was confirmed or suspected to have Coronavirus / COVID-19? documented as of this encounter Plan of Treatment Upcoming Encounters Date Type Specialty Care Team Description 09/10/2022 Office Visit Internal Medicine Logeais, MD Margot [address] [address] (Wo rk) documented as of this encounter Procedures Procedure Name Priority Date/Time Associated Diagnosis Comme nts XR LUMBAR SPINE 2/3 Routine 09/02/2020 3:12 PM Acute bilateral low Results for this VIEWS QUILLER TENDER back pain with procedure are in right-sided sciatica the res ults section. documented in this encounter Results XR Lumbar Spine 2-3 Views (09/02/2020 3:12 PM QUILLER TENDER) Anatomical Region Laterality Modality Spine, T-spine, L-spine, Abdomen/Pelvis Digital Radiography Specimen (Source) Anatomical Location Collection Method / Collectio n Time Received Time / Laterality Volume Impressions 09/02/2020 3:20 PM QUILLER TENDER IMPRESSION: Multilevel disc space narrowing in the lumbar spine, greatest at L4-L5, where there is mild a nterolisthesis of L4 in relation to L5. No compression fractures . GILBERTO SHERIFF MD Narrative 09/02/2020 3:20 PM QUILLER TENDER Exam: 2 views of the lumbar spine [...] documented as of this encounter Care Teams Plastic Tool Maker Relationship Specialty Start Date End Date Kyle Roberts MD PCP - General Family Practice 11/15/19 10/27/[address] [place], [place] [address] Carlota Landeros MD MD Urology 04/10/[address] [place], [place] [address] Michelle Montana, MODESTA Registered Nurse Urology 05/07/17 Anh Costa APRN Nurse Practitioner Nurse Practitioner 10/07/17 Martinez Hernandez MD Ophthalmology 04/18/[address] [place] [address] [phone] Sabino Romano DPM MD Podiatry 08/11/[address] [address] Mehreen Johnston MD Family Practice 11/15/19 MD PhD [address] [place] [address] Margot Branham MD MD Internal Medicine 04/17/[address] [place] [address] Martinez Galicia, Assigned Surgical 07/26/20 MD Provider [address] [place] [address] documented as of this encounter
--- OUTSIDE RECORDS SUMMARY | 2022-07-30 20:02 | XMS_ITS | Encounter Summary ---
:1945 Author Organization [place] Address [address] [place] [address]. [place] [address] Care Team Providers Name Role Phone Carlota Landeros MD Unavailable Michelle Montana RN Unavailable Anh Costa TRANSPORTATION SPECIALIST MEDICAL OFFICE SECRETARY Unavailable Unavailable Martinez Galicia MD Unavailable Sabino Romano DPM Unavailable Mehreen Johnston MD PhD Unavailable [phone] LogeaMargot man MD Unavailable Martinez Galicia MD [...] contact Unable to assess 12/09/2020 7:37 AM COMPUTER BOOKKEEPER with someone who was confirmed or suspected to have Coronavirus / COVID-19? documented as of this encounter Plan of Treatment Upcoming Encounters Date Type Specialty Care Team Description 09/10/2022 Office Visit Internal Medicine Margot Branham MD [address] [place] [address] [phone] (Wo rk) documented as of this encounter Visit Diagnoses Not on filedocumented in this encounter Additional Health Concerns Assessment Noted Time PHQ-9 Depression Total Score: 0 11/22/2019 10:49 AM CS T documented as of this encounter Care Teams Cardiograph Operator Relationship Specialty Start Date End Date Margot Branham MD PCP - General Internal Medicine 10/28/[address] [place] [address] [phone] Carlota Landeros MD MD Urology 04/10/[address] [place] [address] Michelle Montana, MODESTA Registered Nurse Urology 05/07/17 Anh Costa APRN Nurse Practitioner Nurse Practitioner 10/07/17 MEDICAL OFFICE SECRETARY Martinez Galicia MD Ophthalmology 04/18/[address] [place] [address] 267345 Sabino Romnao DPM MD Podiatry 08/11/18 [facility] [address] [phone] Mehreen Johnston MD Family Practice 11/15/[address] [place] [address] [phone] Margot Branham MD MD Internal Medicine 04/17/[address] [place] [address] 429135 Martinez Galicia, Assigned Surgical 07/26/20 MD Provider [address] [place] [address] [phone] Margot Branham MD Assigned PCP 09/15/[address] [place] [address] [phone] Levy Hussein MD Assigned Surgical 03/23/21 06/14/[address] [place] [address] Provider [place], [place] [phone] Alonso Tejeda MD MD Internal Medicine 06/19/[address] [place] [address] [phone] documented as of this encounter
--- OUTSIDE RECORDS SUMMARY | 2022-07-30 20:03 | XMS_ITS | Encounter Summary ---
:1945 Author Organization [place] Address [address] [place] [address]. [place] [address] Care Team Providers Name Role Phone Carlota Landeros MD Unavailable Michelle Montana RN Unavailable Anh Costa DIGITAL PRODUCER AN/SYQ 13 NAV/C2 OPERATOR Unavailable Unavailable Martinez Galicia MD Unavailable Sabino Romano DPM Unavailable Kyle Roberts MD Primary Care Provider Mehreen Johnston MD PhD Unavailable [phone] LogMargot sadler MD Unavailable Martinez Galicia MD Unavailable LogMargot sadler MD Unavailable Margot Branham MD Primary Care Provider Levy Hussein MD Unavailable Alonso Tejeda MD Unavailable Reason for Visit Reason Onset Date Comments Refill Request 07/01/2020 Refill Request 07/04/2020 rosuvastatin (CRESTO R) 5 MG tablet Encounter Details Date Type Department Care Team Description 07/01/2020 MyC Refill [facility] Damian Villanueva Refil l Request; Refill [facility] Mateo OLIVEROS Request (rosuvastat... [address] 678 [address] [place], [place] [phone] (Wo rk) Social History Tobacco Use Types Packs/Day Years Used Date Smoking Tobacco: Never Smokeless Tobacco: Never Alcohol Use Standard Drinks/Week Comments Yes 0 (1 standard drink = 0.6 oz pure alcoho l) wine few times/wk Sex Assigned at Date Recorded Female 12/20/2018 4:10 PM CDT documented as of this encounter Miscellaneous Notes Telephone Encounter - Sheri Abbie - 07/04/2020 10:04 AM CDT [facility] Phone Message May a detailed message be left on voicemail: yes Reason for Call: Medication Refill Request Has the patient contacted the pharmacy for the refill? Yes Name of medication being requested: rosuvastatin (CRESTOR) 5 MG tablet Provider who prescribed the medication: Dr. Villanueva Pharmacy: [id number] [facility] 61 Date medication [...] Office Visit Internal Medicine Margot Branham MD [address] [place] [address] (Wo rk) documented as of this encounter Visit Diagnoses Diagnosis Hyperlipidemia LDL goal <100 Other and unspecified hyperlipidemia documented in this encounter Additional Health Concerns Assessment Noted Time PHQ-9 Depression Total Score: 0 11/22/2019 10:49 AM CS T documented as of this encounter Care Teams Industrial Cafeteria Manager Relationship Specialty Start Date End Date Kyle Roberts MD PCP - General Family Practice 11/15/19 10/27/[address] [place] [address] Margot Branham MD PCP - General Internal Medicine 10/28/[address] [place] [phone] Carlota Landeros MD MD Urology 04/10/[address] [place], [place] [phone] Michelle Montana, MODESTA Registered Nurse Urology 05/07/17 Anh Costa APRN Nurse Practitioner Nurse Practitioner 10/07/17 AN/SYQ 13 NAV/C2 OPERATOR Martinez Galicia MD Ophthalmology 04/18/[address] [place] [address] [phone] Sabino Romano DPM MD Podiatry 08/11/18 [facility] [address] [phone] Mehreen Johnston MD Family Practice 11/15/19 MD PhD [address] [place] [address] [phone] Margot Branham MD MD Internal Medicine 04/17/[address] [place] [address] [phone] Martinez Galicia, Assigned Surgical 07/26/20 MD Provider [address] [place] [address] [phone] Margot Branham MD Assigned PCP 09/15/[address] [place] [address] [phone] Levy Hussein MD Assigned Surgical 03/23/21 06/14/[address] [place] [address] [place] [address] Alonso Tejeda MD MD Internal Medicine 06/19/[address] [place] [address] documented as of this encounter
--- OUTSIDE RECORDS SUMMARY | 2022-07-30 20:03 | XMS_ITS | Encounter Summary ---
:1945 Author Organization [place] Address [address] [place] [address]. [place] [address] Care Team Providers Name Role Phone Carlota Landeros MD Unavailable Michelle Montana RN Unavailable Anh Costa MOUSE BREEDER REGULATORY AND COMPLIANCE TECHNICIAN Unavailable Unavailable Martinez Galicia MD Unavailable Sabino Romano DPM Unavailable Kyle Roberts MD Primary Care Provider Mehreen Johnston MD PhD Unavailable [phone] Reason for Visit Diagnostic Imaging Dexa (Routine) - Closed Specialty Diagnoses / Procedures Referred By Contact Refer red To Contact Diagnoses Other specified disorders of bone density and structure, other site Disorder of bone and cartilage Kyle Roberts MD Procedures DX Wrist Heel Radius [address] [place], [place] [address] Referral ID Status Reason Start Date Expiration Date Visits Requ ested Visits Authorized [id number] Closed 11/23/2019 11/22/2020 1 1 Encounter Details Date Type Department Care Team Description 11/23/2019 Ancillary Procedure [facility] Kyle Roberts Ot her specified disorders of bone density and structure, other site ; Center Dexa MD Brii Disorder of bone and cartilage; 9 [facility] SE [address] Other specified disorders of bone densit y and structure, other site 1st Floor [place], [place] [phone] Social History Tobacco Use Types Packs/Day [...] Visit Internal Medicine Margot Branham MD 909 [facility] 4TH [place], [place] [address] (Wo rk) documented as of this encounter Procedures Procedure Name Priority Date/Time Associated Diagnosis Comme nts DX Routine 11/23/2019 9:40 AM Other specified Result s for this WRIST/HEEL/RADIUS REPRODUCTION TECHNICIAN disorders of bone proce dure are in density and the results structure, other section. site Disorder of bone and cartilage documented in this encounter Results DX Wrist Heel Radius (11/23/2019 9:40 AM REPRODUCTION TECHNICIAN) Anatomical Region Laterality Modality Dexa Bone Mineral Density Specimen (Source) Anatomical Location Collection Method / Collectio n Time Received Time / Laterality Volume Narrative 11/27/2019 9:23 AM REPRODUCTION TECHNICIAN Results are reported under DXA scan report for the hip/spine performed on the same day. Principal result site interpreter: Dariela Payne MD, CCD Division of Diabetes, Endocrinology and Metabolism [facility] [phone] Kyle Roberts MD IMG DEXA ORDERABLES documented in this encounter Visit Diagnoses Diagnosis Other specified disorders of bone densit y and structure, other site Disorder of bone and cartilage Disorder of bone and cartilage, unspecif ied documented in this encounter Additional Health Concerns Assessment Noted Time PHQ-9 Depression Total Score: 0 11/22/2019 10:49 AM CS T documented as of this encounter Care Teams Field Service Engineer Relationship Specialty Start Date End Date Kyle Roberts MD PCP - General Family Practice 11/15/19 10/27/[address] [place] [address] Carlota Landeros MD MD Urology 04/10/[address] [place], [place] [phone] Michelle Montana, RN Registered Nurse Urology 05/07/17 Anh Costa, MOUSE BREEDER REGULATORY AND COMPLIANCE TECHNICIAN Nurse Practitioner Nurse Practitioner 10/07 Martinez Galicia MD MD Ophthalmology 04/18/18 [address] [place] [address] Sabion Romano DPM MD Podiatry 08/11/[address] [address] Mehreen Johnston MD PhD MD Family Practice 11/15/[address] [place] [address] documented as of this encounter
--- OUTSIDE RECORDS SUMMARY | 2022-07-30 20:03 | XMS_ITS | Encounter Summary ---
:1945 Author Organization [place] Address [address] [place] [address]. [place] [address] Care Team Providers Name Role Phone Carlota Landeros MD Unavailable Michelle Montana RN Unavailable Anh Costa RESERVE OPERATOR PROFESSOR OF LATIN AMERICAN STUDIES Unavailable Unavailable Martinez Galicia MD Unavailable Sabino Romano DPM Unavailable Kyle Roberts MD Primary Care Provider Mehreen Johnston MD PhD Unavailable [phone] Margot Branham MD Unavailable Martinez Galicia MD Unavailable Reason for Visit Reason Comments Health Maintenance Encounter Details Date Type Department Care Team Description 08/05/2020 Documentation Only [facility] Ankita Danielson, Health Maintenance Coordination, [facility] Ambulatory [address] [place] [phone] Social History Tobacco Use Types Packs/Day [...] Visit Internal Medicine Margot Branham MD [address] [place] [address] (Wo rk) documented as of this encounter Procedures Procedure Name Priority Date/Time Associated Diagnosis Comme nts HIM COLONOSCOPY SCAN Routine 07/01/2020 Results for this procedure are i n the results section . documented in this encounter Results - HIM Screen Colonoscopy Scan (07/01/2020) Narrative Ankita Danielson, CENTER SALES AND SERVICE ASSOCIATE - 07/01/2020 Result Impression Post-op Diagnoses: ? [...] preparation was evaluated ? using the BBPS ([place] Bowel Prep aration Scale) with scores of: [...] documented as of this encounter Care Teams Honest John Rocket Crew Member Relationship Specialty Start Date End Date Kyle Roberts MD PCP - General Family Practice 11/15/19 10/27/[address] [place], [place] [address] Carlota Landeros MD MD Urology 04/10/[address] [place], [place] [address] Michelle Montana, RN Registered Nurse Urology 05/07/17 Anh Costa APRN Nurse Practitioner Nurse Practitioner 10/07/17 PROFESSOR OF LATIN AMERICAN STUDIES Martinez Galicia MD Ophthalmology 04/18/[address] [address] Sabino Romano DPM MD Podiatry 08/11/[address] [address] Mehreen Johnston MD Family Practice 11/15/19 MD PhD [address] [place] [address] [phone] Margot Branham MD MD Internal Medicine 04/17/[address] [place] [address] [phone] Martinez Galicia, Assigned Surgical 07/26/20 MD Provider [address] [place] [address] [phone] documented as of this encounter
--- OUTSIDE RECORDS SUMMARY | 2022-07-30 20:03 | XMS_ITS | Encounter Summary ---
:1945 Author Organization [place] Address [address] [place] [address]. [place] [address] Care Team Providers Name Role Phone Carlota Landeros MD Unavailable Michelle Montana RN Unavailable Anh Costa PANEL SEWER TELEPRINTER INSTALLER Unavailable Unavailable Martinez Galicia MD Unavailable Sabino Romano DPM Unavailable Kyle Roberts MD Primary Care Provider Mehreen Johnston MD PhD Unavailable [phone] Margot Branham MD Unavailable Martinez Galicia MD Unavailable Reason for Referral Rehab Therapy Physical Therapy (Routine) - Closed Specialty Diagnoses / Procedures Referred By Contact Refer red To Contact Diagnoses Acute bilateral low back pain with right-sided sciatica Margot Branham MD [address] [address] Referral ID Status Reason Start Date Expiration Date Visits Requ ested Visits Authorized [id number] Closed 09/02/2020 09/02/2021 1 1 iagnostic Imaging XR (Routine) - Closed Specialty Diagnoses / Procedures Referred By Contact Refer red To Contact Diagnoses Acute bilateral low back pain with right-sided sciatica Margot Branham MD Procedures XR Lumbar Spine 2-3 Views [address], [place] [address] Referral ID Status Reason Start Date Expiration Date Visits Requ ested Visits Authorized [id number] Closed 09/02/2020 09/02/2021 1 1 SALES CLERK Reason for Visit Reason Comments Establish Care Pt is here to establish care . Encounter Details Date Type Department Care Team Description 09/02/2020 Office Visit [facility] Margot Branham, Acute bi lateral low back pain with right-sided sciatica (Primary Dx); Clinic Internal MD Lump or mass in breast; Medicine [address] Primary osteoarthritis of marissa th hips; [address] [place] [address] Localized osteoporosis without current p athological fracture [address] [place] [phone] Social History Tobacco Use Types Packs/Day Years [...] with No / Unsure 09/06/2020 5:13 PM FOOD SALES CLERK someone who was confirmed or suspected to have Coronavirus / COVID-19? documented as of this encounter Last Filed Vital Signs Vital Sign Reading Time Taken Comments Blood Pressure 138/71 09/02/2020 1:02 PM FOOD SALES CLERK Pulse 66 09/02/2020 12:59 PM FOOD SALES CLERK Temperature 36.4 ??C (97.5 ??F) 09/02/2020 12:59 PM FOOD SALES CLERK Respiratory Rate - - Oxygen Saturation 97% 09/02/2020 12:59 PM FOOD SALES CLERK Inhaled Oxygen Concentration - - Weight 68.4 kg (150 lb 14.4 oz) 09/02/2020 12:59 PM FOOD SALES CLERK Height - - Body Mass Index 24.36 08/17/2019 2:01 PM FOOD SALES CLERK documented in this encounter Patient Instructions Patient InstructionsLatanya Palacios CMA - 09/02/2020 1:00 PM FOOD SALES CLERK Nurse Practitioner[facility] Medication Refill Request Information: * Please contact your pharmacy regarding ANY request for medication refills. [facility] Prescription Fax = [phone] * Please allow 3 business days for [...] signed off on them. Nurse Practition[facility] Clinic: [phone] SALES CLERK documented in this encounter Progress Notes Margot [...] a few weeks (09/11/2020) at the [facility] in [place]. Toryhas also been closely followed for osteoporosis, and her physicians at the [facility] have prescribed her Fosamax, but she has [...] Social History: Patient lives alone in the [facility] area. 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 She has one son in the area and he helps her whenever she needs anything. 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 [...] a left hip replacement at the [facility] in [place] on 09/11/2020. She is also having troubles with her right hip, which was replaced in 2006. She will follow up with orthopedicsabout her right hip concerns after the September surgery, as they are already aware of the issue. 3. Localized osteoporosis without current pathological fracture - Patient is followed by Dr. Harris the [facility] in [place], regarding her osteoporosis. She as been prescribed [...] she has one scheduled at the [facility] in the near future. Return to clinic: Return in about 3 months for follow-up. August Espan[place] MS3 Attending Addendum: The medical student acted as scribe. The patient was seen and examined with medical student. The history and physical were independently verified by myself. The above documentation represents our jointassessment and plan. Margot Branham MD Internal Medicine SALES CLERK documented in this encounter Nursing Notes Latanya Palacios, PUMA - 09/02/2020 1:00 PM CST Chief Complaint Patient presents with ??? Establish Care Pt is here to establish care. ADITYA Pérez 12:59 PM 09/02/2020 SALES CLERK documented in this encounter Plan of Treatment Upcoming Encounters Date Type Specialty Care Team Description 09/10/2022 Office Visit Internal Medicine Logeais, MD Margot 909 [facility] 4[address] [place] [address] (Wo rk) Scheduled Referrals Name Type Priority Associated Diagnoses Order S chedule PHYSICAL THERAPY Referral Routine Acute bilateral low back Expected: 09/02/2020, REFERRAL pain with right-sided s: 09/02/2021 sciatica documented as of this encounter Results XR Lumbar Spine 2-3 Views (09/02/2020 3:12 PM FOOD SALES CLERK) Anatomical Region Laterality Modality Spine, T-spine, L-spine, Abdomen/Pelvis Digital Radiography Specimen (Source) Anatomical Location Collection Method / Collectio n Time Received Time / Laterality Volume Impressions 09/02/2020 3:20 PM FOOD SALES CLERK IMPRESSION: Multilevel disc space narrowing in the lumbar spine, greatest at L4-L5, where there is mild a nterolisthesis of L4 in relation to L5. No compression fractures . GILBERTO BARRERA MD Narrative 09/02/2020 3:20 PM FOOD SALES CLERK Exam: 2 views of the lumbar spine [...] as of this encounter Care Teams Crop Nutrition Scientist Relationship Specialty Start Date End Date Kyle Roberts MD PCP - General Family Practice 11/15/19 10/27/[address] [place] [address] Carlota Landeros MD MD Urology 04/10/[address] [place], [place] [address] Michelle Montana, MODESTA Registered Nurse Urology 05/07/17 Anh Costa APRN Nurse Practitioner Nurse Practitioner 10/07/17 Martinez Hernandez MD Ophthalmology 04/18/[address] [place] [address] Sabino Romano DPM MD Podiatry 08/11/[address] [phone] Mehreen Johnston MD Family Practice 11/15/[address] [place] [address] Margot Branham MD MD Internal Medicine 04/17/[address] [phone] Martinez Galicia, Assigned Surgical 07/26/20 MD Provider [address] [place], [place] [phone] documented as of this encounter
--- OUTSIDE RECORDS SUMMARY | 2022-07-30 20:03 | XMS_ITS | Encounter Summary ---
:1945 Author Organization [place] Address [address] [place] [address]. [place] [address] Care Team Providers Name Role Phone Carlota Landeros MD Unavailable Michelle Montana RN Unavailable Anh Costa FURRIER SHOP SUPERVISOR AIRPLANE ELECTRICAL REPAIRER Unavailable Unavailable Martinez Galicia MD Unavailable Sabino Romano DPM Unavailable Kyle Roberts MD Primary Care Provider Mehreen Johnston MD PhD Unavailable [phone] Encounter Details Date Type Department Care Team [...] Office Visit Internal Medicine Margot Branham MD [address] [place] [address] (Wo rk) documented as of this encounter Visit Diagnoses Not on filedocumented in this encounter Additional Health Concerns Assessment Noted Time PHQ-9 Depression Total Score: 0 08/17/2019 2:03 PM CONDITIONER TUMBLER OPERATOR documented as of this encounter Care Teams Paramedical Aide Relationship Specialty Start Date End Date Kyle Roberts MD PCP - General Family Practice 11/15/19 10/27/[address] [place] [address] Carlota Landeros MD MD Urology 04/10/[address] [place], [place] [phone] Michelle Montana, RN Registered Nurse Urology 05/07/17 Anh Costa APRN AIRPLANE ELECTRICAL REPAIRER Nurse Practitioner Nurse Practitioner 10/07 Martinez Galicia MD MD Ophthalmology 04/18/18 420 [place] [address] Sabino Romano DPM MD Podiatry 08/11/[address] [address] Mehreen Johnston MD PhD MD Family Practice 11/15/19 909 [place] [address] documented as of this encounter
--- OUTSIDE RECORDS SUMMARY | 2022-07-30 20:03 | XMS_ITS | Encounter Summary ---
:1945 Author Organization [facility] Address [address] [place] [address]. [place] [address] Care Team Providers Name Role Phone Lisseth Vang MD Primary Care Provider Carlota Landeros MD Unavailable Lisseth Vang MD Unavailable Michelle Montana RN Unavailable Anh Costa APRN ASPHALT SURFACE HEATER OPERATOR Unavailable Unavailable Martinez Galicia MD Unavailable [...] Office Visit Internal Medicine Margot Branham MD [address] [place] [address] (Wo rk) documented as of this encounter Visit Diagnoses Not on filedocumented in this encounter Additional Health Concerns Assessment Noted Time PHQ-9 Depression Total Score: 0 08/17/2019 2:03 PM TAP OUT OPERATOR documented as of this encounter Care Teams Ceramics Machine Operator Relationship Specialty Start Date End Date Lisseth Vang MD PCP - General 04/13/16 11/14/[address] [place] [address] Carlota Landeros MD MD Urology 04/10/[address] [place], [place] [address] Lisseth Vang MD PCP Family Practice 03/30/16 11/14/[address] [place] [address] Michelle Montana, MODESTA Registered Nurse Urology 05/07/17 Anh Costa APRN ASPHALT SURFACE HEATER OPERATOR Nurse Practitioner Nurse Practitioner 10/07 Martinez Galicia MD MD Ophthalmology 04/18/18 420 [place] [address] Sabino Romano DPM MD Podiatry 08/11/[address] [address] documented as of this encounter
--- OUTSIDE RECORDS SUMMARY | 2022-07-30 20:03 | XMS_ITS | Encounter Summary ---
:1945 Author Organization [facility] Address [address] [place] [address]. [place] [address] Care Team Providers Name Role Phone Carlota Landeros MD Unavailable Michelle Montana RN Unavailable Anh Costa SCREEN OPERATOR SALES AND IN HOME DELIVERY SPECIALIST Unavailable Unavailable Martinez Galicia MD Unavailable Sabino Romano DPM Unavailable Kyle Roberts MD Primary Care Provider Mehreen Johnston MD PhD Unavailable [phone] Encounter Details Date Type Department Care Team Description 11/23/2019 Ancillary Procedure [facility] Kyle Roberts [place] her specified disorders of bone density and structure, other site ; [place] Nicole Teresa MD Disorder of bone and cartilage; [address] [place] [address] Other specified disorders of bone densit y and structure, other site 1st [place], [place] [address] Social History Tobacco Use Types Packs/Day [...] Visit Internal Medicine Margot Branham MD [address] [place] [address] (Wo rk) documented as of this encounter Procedures Procedure Name Priority Date/Time Associated Diagnosis Comme nts DX HIP/PELVIS/SPINE Routine 11/23/2019 9:39 AM Other specified Results for this SWEETBREAD TRIMMER disorders of bone procedure are in density and the results structure, other section. site Disorder of bone and cartilage documented in this encounter Results DX Hip/Pelvis/Spine (11/23/2019 9:39 AM SWEETBREAD TRIMMER) Anatomical Region Laterality Modality Dexa Bone Mineral Density Specimen (Source) Anatomical Location Collection Method / Collectio n Time Received Time / Laterality Volume Narrative 11/27/2019 8:45 AM SWEETBREAD TRIMMER [facility] [address] [place] [address] Phone: ?? Fax: Patient name: ?? Yamilethnoris [place] Patient demographics: ??74 year old Whit e Female History: ??Evaluation of Bone Density, F amily History of Osteoporosis and Post Menopausal Current treatments: ??Estrogen, Vitamin D Scan: ?[employer] Conclusions: The most negative and valid T-score [...] to you and your patient. Principal result marriage and family social worker: Dariela Payne MD, , [facility] Division of Endocrinology and Diabetes ? [...] documented as of this encounter Care Teams Cutting Machine Tender Helper Relationship Specialty Start Date End Date Kyle Roberts MD PCP - General Family Practice 11/15/19 10/27/[address] [place], [place] [address] Carlota Landeros MD MD Urology 04/10/[address] [place], [place] [address] Michelle Montana, MODESTA Registered Nurse Urology 05/07/17 Anh Costa APRN SALES AND IN HOME DELIVERY SPECIALIST Nurse Practitioner Nurse Practitioner 10/07 Martinez Galicia MD MD Ophthalmology 04/18/18 420 [place], [place] [address] Sabino Romano DPM MD Podiatry 08/11/[address] [phone] Mehreen Johnston MD PhD MD Family Practice 11/15/19 909 [place], [place] [phone] documented as of this encounter
--- OUTSIDE RECORDS SUMMARY | 2022-07-30 20:03 | XMS_ITS | Encounter Summary ---
:1945 Author Organization [place] Address [address] [place] [address]. [place] [address] Care Team Providers Name Role Phone Carlota Landeros MD Unavailable Michelle Montana RN Unavailable Anh Costa APRN GUEST SERVICES MANAGER Unavailable Unavailable Martinez Galicia MD Unavailable Sabino Romano DPM Unavailable Kyle Roberts MD Primary Care Provider Mehreen Johnston MD PhD Unavailable [phone] Encounter Details Date Type Department Care Team Description 12/01/2019 Telephone [facility] Kyle Martinez MD [facility] [address] [facility] [place] [address] [place] [address],[place] [address] 606 24[facility] 88 [place], [place] [address] Social History Tobacco Use Types Packs/Day Years [...] -5.5, from lowest T score of -1.0 [id number]. Discussed that this change is rapid and dramatic; also do need to consider possiblity of some error given the vast difference in score over short time without explanation. Recommend she move up her appointment at [place] from January to December to have this evaluated sooner, andmay want images sent to [place] as well. OLEUM SAMPLER documented in this encounter Plan of Treatment Upcoming Encounters Date Type Specialty Care Team Description 09/10/2022 Office Visit Internal Medicine LogeaMargot man MD [address] [address] (Wo rk) documented as of this encounter Visit Diagnoses Not on filedocumented in this encounter Additional Health Concerns Assessment Noted Time PHQ-9 Depression Total Score: 0 11/22/2019 10:49 AM CS T documented as of this encounter Care Teams Senior Mainframe Programmer Analyst Relationship Specialty Start Date End Date Kyle Roberts MD PCP - General Family Practice 11/15/19 10/27/[address] [place] [address] Carlota Landeros MD MD Urology 04/10/[address] [place], [place] [address] Michelle Montana, MODESTA Registered Nurse Urology 05/07/17 Anh Costa APRN GUEST SERVICES MANAGER Nurse Practitioner Nurse Practitioner 10/07 Martinez Galicia MD MD Ophthalmology 04/18/18 420 [place] [address] Sabino Romano DPM MD Podiatry 08/11/[address] [place] [phone] Mehreen Johnston MD PhD MD Family Practice 11/15/19 909 [place], [place] [address] documented as of this encounter
--- OUTSIDE RECORDS SUMMARY | 2022-07-30 20:03 | XMS_ITS | Encounter Summary ---
:1945 Author Organization [facility] Address [address] [facility] [place] [address] Care Team Providers Name Role Phone Cralota Landeros MD Unavailable Michelle Montana RN Unavailable Anh Costa ULTIMATE HOOPS REFEREE LABORER GENERAL Unavailable Unavailable Martinez Galicia MD Unavailable Sabino Romano DPJody Unavailable Kyle Roberts MD Primary Care Provider Mehreen Johnston MD PhD Unavailable [phone] Encounter Details Date Type Department Care Team Description 11/22/2019 Office Visit [facility] yKle Roberts Disorder of bone and cartilage (Primary Dx); [facility] MD Brii Other specified disorders of bone densit y and structure, other site ; [place] [address] Atrophic vaginitis; [facility] PROFESSION[facility] reen for colon cancer; [place] [address] Seasonal allergies; 3RD FLR,[address] Chronic rhinitis; [address] (Work) Vaginal dryness; [facility] 88 Recurrent cold sores; [place], [place] [address] (Fax) Vitamin D deficiency [phone] Social History Tobacco Use Types Packs/Day Years [...] (147 lb 12.8 oz) 11/22/2019 10:50 AM ARCHITECTURAL INTERN Height - - Body Mass Index 23.86 08/17/2019 2:01 PM ARCHITECTURAL INTERN documented in this encounter Progress Notes Kyle Roberts MD - 11/22/2019 11:00 AM CST HPI Former patient of Dr. Vang, to establish care 1. Osteopenia/Low bone density--sees [facility] for bone health. Initially saw Dr. Harris 08/2018 for low bone density, reviewed note. T score at that time -2 at radius and -1.9 at hip. Plan at that time was conservative treatment with weight bearting activity and vitamin D. Has not seen Dr. [facility] S=since, has upcoming appt. Needs repeat DEXA as they not do at [facility]..Had been on HRT with estradiol patch, recalls started in her 40's continued through 2008. 2. Goes to [facility] for prevention CVD, followed Dr. Costa 3. [...] order repeat DEXA, to follow up at [facility]. Had annual exam 08/[address] Vang, Follow-up in 6 months to review BP, lipids and vaginal concerns ITECTURAL INTERN documented in this encounter Nursing Notes Demario Dudley, TELEPHONE QUOTATION CLERK - 11/22/2019 11:00 AM CST No chief complaint on file. See PUMA Dudley 11/22/2019 ITECTURAL INTERN documented in this encounter Plan of Treatment Upcoming Encounters Date Type Specialty Care Team Description 09/10/2022 Office Visit Internal Medicine Margot Branham MD [address] [address] (Wo rk) documented as of this encounter Results DX Hip/Pelvis/Spine (11/23/2019 9:39 AM ARCHITECTURAL INTERN) Anatomical Region Laterality Modality Dexa Bone Mineral Density Specimen (Source) Anatomical Location Collection Method / Collectio n Time Received Time / Laterality Volume Narrative 11/27/2019 8:45 AM ARCHITECTURAL INTERN [facility] [address] [place] [address] Phone: ?? Fax: Patient name: ?? Yamileth [place] Patient demographics: ??74 year old Whit e Female History: ??Evaluation of Bone Density, F amily History of Osteoporosis and Post Menopausal Current treatments: ??Estrogen, Vitamin D Scan: ?[employer] Conclusions: The most negative and valid [...] to you and your patient. Principal result motor vehicle parts interpreter: Dariela Payne MD, , [facility] Division of [...] documented as of this encounter Care Teams Lens Mold Setter Relationship Specialty Start Date End Date Kyle Roberts MD PCP - General Family Practice 11/15/19 10/27/[address] [place], [place] [address] Carlota Landeros MD MD Urology 04/10/[address] [place] [address] Michelle Montana, MODESTA Registered Nurse Urology 05/07/17 Anh Costa APRN LABORER GENERAL Nurse Practitioner Nurse Practitioner 10/07 Martinez Galicia MD MD Ophthalmology 04/18/18 420 [place] [address] Sabino Romano DPM MD Podiatry 08/11/[address] [phone] Mehreen Johnston MD PhD Family Practice 11/15/[address] [place] [address] [phone] documented as of this encounter
--- OUTSIDE RECORDS SUMMARY | 2022-07-30 20:03 | XMS_ITS | Encounter Summary ---
:1945 Author Organization [facility] Address [address] [place] [address]. [place] [address] Care Team Providers Name Role Phone Lisseth Vang MD Primary Care Provider Carlota Landeros MD Unavailable Lisseth Vang MD Unavailable Michelle Montana RN Unavailable Anh Costa APRN MASTER CONTROL ENGINEER Unavailable Unavailable Martinez Galicia MD Unavailable Sabino Romano DPM Unavailable Kyle Roberts MD Primary Care Provider Mehreen Johnston MD PhD Unavailable [phone] LogMargot sadler MD Unavailable Martinez Galicia MD [...] Office Visit Internal Medicine Margot Branham MD [address] [place] [address] [phone] (Wo rk) documented as of this encounter Visit Diagnoses Not on filedocumented in this encounter Additional Health Concerns Assessment Noted Time PHQ-9 Depression Total Score: 0 08/17/2019 2:03 PM VEGETABLE HARVEST WORKER documented as of this encounter Care Teams Rib Builder Relationship Specialty Start Date End Date Lisseth Vang, PCP - General 04/13/16 11/14/[address] [place], [place] [address] Kyle Roberts MD PCP - General Family Practice 11/15/19 10/27/[address] [place], [place] [address] Margot Branham MD PCP - General Internal Medicine 10/28/[address] [place] [address] Carolta Landeros MD MD Urology 04/10/[address] [place], [place] [address] Lisseth Vang, PCP Family Practice 03/30/[address] [place], [place] [address] Michelle Montana, MODESTA Registered Nurse Urology 05/07/17 Julissa, Anh Salma, LYRIC WRITER Nurse Practitioner Nurse Practitioner 10/07/17 MASTER CONTROL ENGINEER Martinez Galicia MD Ophthalmology 04/18/[address] [place] [address] [phone] Sabino Romano DPM MD Podiatry 08/11/[address] [phone] Mehreen Johnston MD Family Practice 11/15/19 MD PhD [address] [place] [phone] Margot Branham MD MD Internal Medicine 04/17/[address] [place] [phone] Martinez Galicia, Assigned Surgical 07/26/20 MD Provider [address] [place] [phone] Margot Branham MD Assigned PCP 09/15/[address] [place] [address] [phone] Levy Hussein MD Assigned Surgical 03/23/21 06/14/[address] [place] [address] [phone] documented as of this encounter
--- OUTSIDE RECORDS SUMMARY | 2022-07-30 20:03 | XMS_ITS | Encounter Summary ---
:1945 Author Organization [facility] Address [address] [place] [address]. [place] [address] Care Team Providers Name Role Phone Carlota Landeros MD Unavailable Michelle Montana RN Unavailable Anh Costa COMMUTATOR V RING ASSEMBLER ENVIRONMENTAL INSPECTOR Unavailable Unavailable Martinez Galicia MD Unavailable Sabino Romano DPM Unavailable Kyle Roberts MD Primary Care Provider Mehreen Johnston MD PhD Unavailable [phone] Encounter Details Date Type Department Care Team Description 03/28/2020 Orders Only [facility] Ophthalmolo Levy Simmons, Encounter for [address] [place] [address] screening for other [address] [place] [address] viral diseases [place], [place] (Primary Dx) [address] [phone] Social History Tobacco Use Types Packs/Day Years [...] 09/10/2022 Office Visit Internal Medicine LogeaisMargot MD [address] [place] [address] (Wo rk) documented as of this encounter Visit Diagnoses Diagnosis Encounter for screening for other viral diseases - Primary documented in this encounter Additional Health Concerns Assessment Noted Time PHQ-9 Depression Total Score: 0 11/22/2019 10:49 AM CS T documented as of this encounter Care Teams Distribution Manager Relationship Specialty Start Date End Date Kyle Roberts MD PCP - General Family Practice 11/15/19 10/27/[address] [place], [place] [address] Carlota Landeros MD MD Urology 04/10/[address] [place], [place] [address] Michelle Montana, RN Registered Nurse Urology 05/07/17 Anh Costa APRN ENVIRONMENTAL INSPECTOR Nurse Practitioner Nurse Practitioner 10/07 Martinez Galicia MD MD Ophthalmology 04/18/18 420 [place], [place] [address] Sabino Romano DPM MD Podiatry 08/11/[address] [phone] Mehreen Johnston MD PhD MD Family Practice 11/15/[address] [place] [address] [phone] documented as of this encounter
--- OUTSIDE RECORDS SUMMARY | 2022-07-30 20:03 | XMS_ITS | Encounter Summary ---
:1945 Author Organization [facility] Address [address] [place] [address]. [place] [address] Care Team Providers Name Role Phone Carlota Landeros MD Unavailable Michelle Montana RN Unavailable Anh Costa FOOD PHOTOGRAPHER CONSTRUCTION DRILLER Unavailable Unavailable Martinez Galicia MD Unavailable Sabino Romano DPM Unavailable Kyel Roberts MD Primary Care Provider Mehreen Johnston MD PhD Unavailable [phone] Margot Branham MD Unavailable Reason for Visit Reason Onset Date Comments Schedule Surgery 12/11/2019 Encounter Details Date Type Department Care Team Description 12/11/2019 Telephone Pending Sale To [facility] Levy Simmons MD Schedule Surgery [address] [place] [address] [place] [phone] Social History Tobacco Use Types Packs/Day Years [...] Hussein. Surgery was scheduled on 05/15 at [facility] Patient will have H&P at [facility], Kyle Roberts Post-Op care appointment was scheduled on 05/27 Patient is aware a local company hazmat driver/selling specialist is needed day of surgery. Patient received surgery packet has my direct contact information for any further questions. Patient informed Ajyda will contact her with a cosmetic quote documented in this encounter Plan of Treatment Upcoming Encounters Date Type Specialty Care Team Description 09/10/2022 Office Visit Internal Medicine LogeaMargot man MD [address] [phone] (Wo rk) documented as of this encounter Visit Diagnoses Not on filedocumented in this encounter Additional Health Concerns Assessment Noted Time PHQ-9 Depression Total Score: 0 11/22/2019 10:49 AM CS T documented as of this encounter Care Teams Molder Punch Relationship Specialty Start Date End Date Kyle Roberts MD PCP - General Family Practice 11/15/19 10/27/[address] [place], [place] [address] Carlota Landeros MD MD Urology 04/10/[address] [place] [address] Michelle Montana, MODESTA Registered Nurse Urology 05/07/17 Anh Costa APRN CONSTRUCTION DRILLER Nurse Practitioner Nurse Practitioner 10/07 Martinez Galicia MD MD Ophthalmology 04/18/18 420 [place], [place] [address] Sabino Romano DPM MD Podiatry 08/11/18 [facility] [address] [phone] Mehreen Johnston MD PhD MD Family Practice 11/15/[address] [place] [address] Margot Branham MD MD Internal Medicine 04/17/[address] [place] [address] documented as of this encounter
--- OUTSIDE RECORDS SUMMARY | 2022-07-30 20:03 | XMS_ITS | Encounter Summary ---
:1945 Author Organization [facility] Address [address] [place] [address]. [place] [address] Care Team Providers Name Role Phone Carlota Landeros MD Unavailable Michelle Montana RN Unavailable Anh Costa MANAGER OFFICE SERVICES COMPLAINT INVESTIGATIONS OFFICER Unavailable Unavailable Martinez Galicia MD Unavailable Sabino Romano DPM Unavailable Kyle Roberts MD Primary Care Provider Mehreen Johnston MD PhD Unavailable [phone] Encounter Details Date Type Department Care Team [...] Visit Internal Medicine Margot Branham MD [address] [place] [address] (Wo rk) documented as of this encounter Visit Diagnoses Not on filedocumented in this encounter Additional Health Concerns Assessment Noted Time PHQ-9 Depression Total Score: 0 11/22/2019 10:49 AM CS T documented as of this encounter Care Teams Paper Colorer Relationship Specialty Start Date End Date Kyle Roberts MD PCP - General Family Practice 11/15/19 10/27/[address] [place] [address] Carlota Landeros MD MD Urology 04/10/[address] [place] [address] Michelle Montana, MODESTA Registered Nurse Urology 05/07/17 Anh Costa APRN COMPLAINT INVESTIGATIONS OFFICER Nurse Practitioner Nurse Practitioner 10/07 Martinez Galicia MD MD Ophthalmology 04/18/18 420 [place] [address] Sabino Romano DPM MD Podiatry 08/11/[address] [address] Mehreen Johnston MD PhD MD Family Practice 11/15/19 909 [place] [address] documented as of this encounter
--- OUTSIDE RECORDS SUMMARY | 2022-07-30 20:03 | XMS_ITS | Encounter Summary ---
:1945 Author Organization [facility] Address [address] [place] [address]. [place] [address] Care Team Providers Name Role Phone Carlota Landeros MD Unavailable Michelle Montana RN Unavailable Anh Costa APRN INSOLE AND OUTSOLE SPLITTER Unavailable Unavailable Martinez Galicia MD Unavailable Sabino Romano DPM Unavailable Kyle Roberts MD Primary Care Provider Mehreen Johnston MD PhD Unavailable [phone] Reason for Visit Reason Onset Date Comments Refill Request 12/12/2019 irbesartan (AVAPRO) 150 MG tablet Encounter Details Date Type Department Care Team Description 12/12/2019 Refill [facility] Heart Anh Costa, Refill Request [facility] [place] CLAUDIA INSOLE AND OUTSOLE SPLITTER (irbesartan (AVAPRO) 150 [address] [facility] SE MG tablet) [place] [address] Social History Tobacco Use Types [...] 09/10/2022 Office Visit Internal Medicine LogeaisMargot MD [address] [place] [address] (Wo rk) documented as of this encounter Visit Diagnoses Diagnosis Essential hypertension Unspecified essential hypertension documented in this encounter Additional Health Concerns Assessment Noted Time PHQ-9 Depression Total Score: 0 11/22/2019 10:49 AM CS T documented as of this encounter Care Teams Director Consumer Relationship Specialty Start Date End Date Kyle Roberts MD PCP - General Family Practice 11/15/19 10/27/[address] [place], [place] [address] Carlota Landeros MD MD Urology 04/10/[address] [place], [place] [address] Michelle Montana, RN Registered Nurse Urology 05/07/17 Anh Costa APRN INSOLE AND OUTSOLE SPLITTER Nurse Practitioner Nurse Practitioner 10/07 Martinez Galicia MD MD Ophthalmology 04/18/18 420 [place], [place] [address] Sabino Romano DPM MD Podiatry 08/11/[address] [phone] Mehreen Johnston MD PhD MD Family Practice 11/15/[address] [place] [phone] documented as of this encounter
--- OUTSIDE RECORDS SUMMARY | 2022-07-30 20:03 | XMS_ITS | Encounter Summary ---
:1945 Author Organization [place] Address [address] [place] [address]. [place] [address] Care Team Providers Name Role Phone Carlota Landeros MD Unavailable Michelle Montana RN Unavailable Anh Costa SOAP PRESS FEEDER DISPUTE SPECIALIST Unavailable Unavailable Martinez Galicia MD Unavailable Sabino Romano DPM Unavailable Kyle Roberts MD Primary Care Provider Mehreen Johnston MD PhD Unavailable [phone] Margot Branham MD Unavailable Martinez Galicia MD Unavailable Encounter Details Date Type Department Care Team Description 09/02/2020 Orders Only [facility] Lab Hyperl ipidemia LDL goal <[address] [address] Social History Tobacco Use Types [...] with No / Unsure 09/06/2020 5:13 PM EMBROIDERY FINISHER someone who was confirmed or suspected to have Coronavirus / COVID-19? documented as of this encounter Plan of Treatment Upcoming Encounters Date Type Specialty Care Team Description 09/10/2022 Office Visit Internal Medicine Margot Branham MD [address] [id number] (Wo rk) documented as of this encounter Procedures Procedure Name Priority Date/Time Associated Diagnosis Comme nts LIPID REFLEX TO Routine 09/02/2020 3:22 PM Hyperlipidemia LDL goal Results for this DIRECT LDL PANEL EMBROIDERY FINISHER <100 procedure a re in the results section. documented in this encounter Results Lipid panel reflex to direct LDL Fasting (09/02/2020 3:22 PM EMBROIDERY FINISHER) [facility] Method Time Signature Cholesterol 175 <200 mg/dL 09/02/2020 [facility] 6:27 PM [facility] Triglycerides 104 <150 mg/dL 09/02/2020 [facility] 6:27 PM [facility] HDL Cholesterol 83 >49 mg/dL 09/02/2020 [facility] 6:27 PM [facility] LDL Cholesterol 72 <100 mg/dL 09/02/2020 [facility] 6:27 PM [facility] Comment: Desirable: <100 mg/dl Non HDL Cholesterol 93 <130 mg/dL 09/02/2020 6:27 PM [facility] Specimen Anatomical Collection Method Collection Time Receive d Time (Source) Location / / Volume Laterality Blood specimen 09/02/2020 3:22 PM 020 3:23 (specimen) EMBROIDERY FINISHER PM EMBROIDERY FINISHER Anh Costa APRN DISPUTE SPECIALIST LAB - BLOOD ORDERABLES Performing Organization Address City/State/ZIP Code Phon e Number [address] [address] [facility] [place] [facility] documented in this encounter Visit Diagnoses Diagnosis Hyperlipidemia LDL goal <100 Other and unspecified hyperlipidemia documented in this encounter Additional Health Concerns Assessment Noted Time PHQ-9 Depression Total Score: 0 11/22/2019 10:49 AM CS T documented as of this encounter Care Teams Medical Safety Director Relationship Specialty Start Date End Date Kyle Roberts MD PCP - General Family Practice 11/15/19 10/27/[address] [place], [place] [address] Carlota Landeros MD MD Urology 04/10/[address] [place], [place] [address] Michelle Montana, RN Registered Nurse Urology 05/07/17 Anh Costa APRN Nurse Practitioner Nurse Practitioner 10/07/17 DISPUTE SPECIALIST Martinez Galicia MD Ophthalmology 04/18/[address] [place] [address] Sabino Romano DPM MD Podiatry 08/11/[address] [phone] Mehreen Johnston MD Family Practice 11/15/19 MD PhD [address] [place] [address] [phone] Margot Branham MD MD Internal Medicine 04/17/[address] [place] [address] Martinez Galicia, Assigned Surgical 07/26/20 MD Provider [address] [place] [phone] documented as of this encounter
--- OUTSIDE RECORDS SUMMARY | 2022-07-30 20:03 | XMS_ITS | Encounter Summary ---
:1945 Author Organization [place] Address [address] [place] [address]. [place] [address] Care Team Providers Name Role Phone Lisseth Vang MD Primary Care Provider Carlota Landeros MD Unavailable Lisseth Vang MD Unavailable Michelle Montana RN Unavailable Anh Costa APRN PRECISION DYER Unavailable Unavailable Martinez Galicia MD Unavailable Sabino Romano DPM Unavailable Reason for Visit Reason Comments Follow Up Encounter Details Date Type Department Care Team Description 11/14/2019 Office Visit [facility] Eye Martinez Galicia Vitre ous Clinic - Latoya Pearson MD degeneration, right - Mota Wangensteen [address] Right Eye (Primary Building [place], [place] Dx) 516 [facility] [address] 9[facility] 9A [phone] [place], [place] (Work) [address] [phone] Social History Tobacco Use Types Packs/Day Years [...] patient and family.. - Martinez Galicia MD ALLING AND COMMUNICATIONS ENGINEER documented in this encounter Nursing Melany Perez [...] Melany Sanchez COT COT 12:27 PM 11/14/2019 ALLING AND COMMUNICATIONS ENGINEER documented in this encounter Plan of Treatment Upcoming Encounters Date Type Specialty Care Team Description 09/10/2022 Office Visit Internal Medicine Margot Branham MD [address] [phone] (Wo rk) documented as of this encounter Visit Diagnoses Diagnosis Vitreous degeneration, right - Right Eye - Primary documented in this encounter Additional Health Concerns Assessment Noted Time PHQ-9 Depression Total Score: 0 08/17/2019 2:03 PM SIGNALLING AND COMMUNICATIONS ENGINEER documented as of this encounter Care Teams Edger Machine Helper Relationship Specialty Start Date End Date Lisseth Vang MD PCP - General 04/13/16 11/14/[address] [place], [place] [address] Carlota Landeros MD MD Urology 04/10/[address] [place], [place] [address] Lisseth Vang MD PCP Family Practice 03/30/16 11/14/[address] [place], [place] [address] Michelle Montana, MODESTA Registered Nurse Urology 05/07/17 Anh Costa APRN PRECISION DYER Nurse Practitioner Nurse Practitioner 10/07 Martinez Galicia MD MD Ophthalmology 04/18/18 420 [place] [address] Sabino Romano DPM MD Podiatry 08/11/[address] [address] documented as of this encounter
--- OUTSIDE RECORDS SUMMARY | 2022-07-30 20:03 | XMS_ITS | Encounter Summary ---
:1945 Author Organization [place] Address [address] [place] [address]. [place] [address] Care Team Providers Name Role Phone Carlota Landeros MD Unavailable Michelle Montana RN Unavailable Anh Costa MACHINE TOOL MECHANIC SENIOR TEST ANALYST Unavailable Unavailable Martinez Galicia MD Unavailable Sabino Romano DPM Unavailable Kyle Roberts MD Primary Care Provider Mehreen Johnston MD PhD Unavailable [phone] Encounter Details Date Type Department Care Team [...] Internal Medicine Margot Branham MD [address] [address] (Wo rk) documented as of this encounter Visit Diagnoses Not on filedocumented in this encounter Additional Health Concerns Assessment Noted Time PHQ-9 Depression Total Score: 0 11/22/2019 10:49 AM CS T documented as of this encounter Care Teams Hand Clipper Relationship Specialty Start Date End Date Kyle Roberts MD PCP - General Family Practice 11/15/19 10/27/[address] [place], [place] [address] Carlota Landeros MD MD Urology 04/10/[address] [place], [place] [address] Michelle Montana, RN Registered Nurse Urology 05/07/17 Anh Costa APRN SENIOR TEST ANALYST Nurse Practitioner Nurse Practitioner 10/07 Martinez Galicia MD MD Ophthalmology 04/18/18 420 [place], [place] [phone] Sabino Romano DPM MD Podiatry 08/11/[address] [address] Mehreen Johnston MD PhD MD Family Practice 11/15/19 909 [place], [place] [phone] documented as of this encounter
--- OUTSIDE RECORDS SUMMARY | 2022-07-30 20:03 | XMS_ITS | Encounter Summary ---
:1945 Author Organization [place] Address [address] [place] [address]. [place] [address] Care Team Providers Name Role Phone Carlota Landeros MD Unavailable Michelle Montana RN Unavailable Anh Costa NUTRITIONIST PUBLIC HEALTH CHOIRMASTER Unavailable Unavailable Martinez Galicia MD Unavailable Sabino Romano DPM Unavailable Kyle Roberts MD Primary Care Provider Mehreen Johnston MD PhD Unavailable [phone] Margot Branham MD Unavailable Martinez Galicia MD [...] with No / Unsure 09/02/2020 12:52 PM PATENT EXAMINER someone who was confirmed or suspected to have Coronavirus / COVID-19? documented as of this encounter Plan of Treatment Upcoming Encounters Date Type Specialty Care Team Description 09/10/2022 Office Visit Internal Medicine Margot Branham MD [address] [place] [address] (Wo rk) documented as of this encounter Visit Diagnoses Not on filedocumented in this encounter Additional Health Concerns Assessment Noted Time PHQ-9 Depression Total Score: 0 11/22/2019 10:49 AM CS T documented as of this encounter Care Teams Wax Pot Tender Relationship Specialty Start Date End Date Kyle Roberts MD PCP - General Family Practice 11/15/19 10/27/[address] [place], [place] [address] Carlota Landeros MD MD Urology 04/10/[address] [place], [place] [address] Michelle Montana, RN Registered Nurse Urology 05/07/17 Anh Costa APRN Nurse Practitioner Nurse Practitioner 10/07/17 CHOIRMASTER Martinez Galicia MD Ophthalmology 04/18/[address] [place] [phone] Sabino Romano DPM MD Podiatry 08/11/18 [address] [place] [phone] Mehreen Johnston MD Family Practice 11/15/19 MD PhD [address] [place] [address] 357205 Margot Branham MD MD Internal Medicine 04/17/[address] [place] [phone] Martinez Galicia, Assigned Surgical 07/26/20 MD Provider [address] [place] [phone] documented as of this encounter
--- OUTSIDE RECORDS SUMMARY | 2022-07-30 20:03 | XMS_ITS | Encounter Summary ---
:1945 Author Organization [place] Address [address] [place] [address]. [place] [address] Care Team Providers Name Role Phone Carlota Landeros MD Unavailable Michelle Montana RN Unavailable Anh Costa ART LIBRARIAN PUMP ERECTOR Unavailable Unavailable Martinez Galicia MD Unavailable Sabino Romano DPM Unavailable Kyle Roberts MD Primary Care Provider Mehreen Johnsotn MD PhD Unavailable [phone] Margot Branham MD Unavailable Encounter Details Date [...] Office Visit Internal Medicine Margot Branham MD [address] [place] [address] (Wo rk) documented as of this encounter Visit Diagnoses Not on filedocumented in this encounter Additional Health Concerns Assessment Noted Time PHQ-9 Depression Total Score: 0 11/22/2019 10:49 AM CS T documented as of this encounter Care Teams Aquatic Instructor Relationship Specialty Start Date End Date Kyle Roberts MD PCP - General Family Practice 11/15/19 10/27/[address] [place], [place] [address] Carlota Landeros MD MD Urology 04/10/[address] [place], [place] [address] Michelle Montana, RN Registered Nurse Urology 05/07/17 Anh Costa APRN PUMP ERECTOR Nurse Practitioner Nurse Practitioner 10/07 Martinez Galicia MD MD Ophthalmology 04/18/[address] [place] [phone] Sabino Romano DPM MD Podiatry 08/11/[address] [address] Mehreen Johnston MD PhD MD Family Practice 11/15/[address] [place] [address] [phone] Margot Branham MD MD Internal Medicine 04/17/[address] [phone] documented as of this encounter
--- OUTSIDE RECORDS SUMMARY | 2022-07-30 20:03 | XMS_ITS | Encounter Summary ---
:1945 Author Organization [place] Address [address] [place] [address]. [place] [address] Care Team Providers Name Role Phone Carlota Landeros MD Unavailable Michelle Montana RN Unavailable Anh Costa USED CAR MAKE READY MECHANIC PARCEL CONTRACTOR Unavailable Unavailable Martinez Galicia MD Unavailable Sabino Romano DPM Unavailable Kyle Roberts MD Primary Care Provider Mehreen Johnston MD PhD Unavailable [phone] Encounter Details Date Type Department Care Team Description 11/23/2019 PRE VISIT [facility] Duncan Mak MD - [place] [address] [place] [address] [place] [address] [facility] [address]A [place], [place] [phone] Social History Tobacco Use [...] Imaging Status [facility]referral 11/14/19-Galicia LYDIA L MINE INSPECTOR documented in this encounter Plan of Treatment Upcoming Encounters Date Type Specialty Care Team Description 09/10/2022 Office Visit Internal Medicine Margot Branham MD [address] [address] (Wo rk) documented as of this encounter Visit Diagnoses Not on filedocumented in this encounter Additional Health Concerns Assessment Noted Time PHQ-9 Depression Total Score: 0 11/22/2019 10:49 AM CS T documented as of this encounter Care Teams Parts Counter Salesperson Relationship Specialty Start Date End Date Kyle Roberts MD PCP - General Family Practice 11/15/19 10/27/[address] [place] [address] Carlota Landeros MD MD Urology 04/10/[address] [place], [place] [address] Michelle Montana, MODESTA Registered Nurse Urology 05/07/17 Anh Costa APRN PARCEL CONTRACTOR Nurse Practitioner Nurse Practitioner 10/07 Martinez Galicia MD MD Ophthalmology 04/18/18 420 [place] [address] Sabino Romano DPM MD Podiatry 08/11/[address] [phone] Mehreen Johnston MD PhD MD Family Practice 11/15/[address] [place] [address] documented as of this encounter
--- OUTSIDE RECORDS SUMMARY | 2022-07-30 20:03 | XMS_ITS | Encounter Summary ---
:1945 Author Organization [place] Address [address] [place] [address]. [place] [address] Care Team Providers Name Role Phone Carlota Landeros MD Unavailable Michelle Montana RN Unavailable Anh Costa CRYSTALIZER WASTEWATER ENGINEER Unavailable Unavailable Martinez Galicia MD Unavailable Sabino Romano DPM Unavailable Kyle Roberts MD Primary Care Provider Mehreen Johnston MD PhD Unavailable [phone] Encounter Details Date Type Department Care Team Description 12/11/2019 PRE VISIT [facility] Ophthalmolo Levy Simmons MD [address] [place], [place] [address] [place] [address] [phone] Social History Tobacco Use Types Packs/Day Years [...] Status [facility] OV/referral 11/14/19-Frida FREEMAN ? R BUNDLER documented in this encounter Plan of Treatment Upcoming Encounters Date Type Specialty Care Team Description 09/10/2022 Office Visit Internal Medicine Margot Branham MD [address] [address] (Wo rk) documented as of this encounter Visit Diagnoses Not on filedocumented in this encounter Additional Health Concerns Assessment Noted Time PHQ-9 Depression Total Score: 0 11/22/2019 10:49 AM CS T documented as of this encounter Care Teams Registered Radiographer Relationship Specialty Start Date End Date Kyle Roberts MD PCP - General Family Practice 11/15/19 10/27/[address] [place], [place] [address] Carlota Landeros MD MD Urology 04/10/[address] [place] [address] Michelle Montana, MODESTA Registered Nurse Urology 05/07/17 Anh Costa APRN WASTEWATER ENGINEER Nurse Practitioner Nurse Practitioner 10/07 Martinez Galicia MD MD Ophthalmology 04/18/18 420 [place] [address] Sabino Romano DPM MD Podiatry 08/11/[address] [phone] Mehreen Johnston MD PhD MD Family Practice 11/15/[address] [place] [address] documented as of this encounter
--- OUTSIDE RECORDS SUMMARY | 2022-07-30 20:03 | XMS_ITS | Encounter Summary ---
:1945 Author Organization [place] Address [address] [place] [address]. [place] [address] Care Team Providers Name Role Phone Carlota Landeros MD Unavailable Michelle Montana RN Unavailable Anh Costa SHEEP AND WHEAT FARMER LEARN TO SWIM INSTRUCTOR Unavailable Unavailable Martinez Galicia MD Unavailable Sabino Romano DPM Unavailable Kyle Roberts MD Primary Care Provider Mehreen Johnston MD PhD Unavailable [phone] Margot Branham MD Unavailable Reason for Visit Reason Onset Date Comments Refill Request 07/04/2020 rosuvastatin Encounter Details Date Type Department Care Team Description 07/04/2020 Telephone [facility] Women's Nurse, [facility] Refill Request [facility] [place] (rosuvastatin) [address] [facility] Professional Bldg [facility] [address] [place] [address] Social History Tobacco Use Types [...] the Menopause and sexual health clinic in [place]. Sent My Chart message to patient asking if she is still seeing that physician, or is wanting Dr Roberts to take over prescribing. documented in this encounter Plan of Treatment Upcoming Encounters Date Type Specialty Care Team Description 09/10/2022 Office Visit Internal Medicine Margot Branham MD [address] [phone] (Wo rk) documented as of this encounter Visit Diagnoses Not on filedocumented in this encounter Additional Health Concerns Assessment Noted Time PHQ-9 Depression Total Score: 0 11/22/2019 10:49 AM CS T documented as of this encounter Care Teams Product Safety Manager Relationship Specialty Start Date End Date Kyle Roberts MD PCP - General Family Practice 11/15/19 10/27/[address] [place] [address] Carlota Landeros MD MD Urology 04/10/[address] [place], [place] [address] Michelle Montana, MODESTA Registered Nurse Urology 05/07/17 Anh Costa APRN LEARN TO SWIM INSTRUCTOR Nurse Practitioner Nurse Practitioner 10/07 Martinez Galicia MD MD Ophthalmology 04/18/18 420 [place] [address] Sabino Romano DPM MD Podiatry 08/11/[address] [phone] Mehreen Johnston MD PhD MD Family Practice 11/15/19 909 [place] [address] Margot Branham MD MD Internal Medicine 04/17/[address] [address] documented as of this encounter
--- OUTSIDE RECORDS SUMMARY | 2022-07-30 20:03 | XMS_ITS | Encounter Summary ---
:1945 Author Organization [place] Address [address] [place] [address]. [place] [address] Care Team Providers Name Role Phone Carlota Landeros MD Unavailable Michelle Montana RN Unavailable Anh Costa CERTIFIED CODER CABLE TELEVISION ACCESS COORDINATOR Unavailable Unavailable Martinze Galicia MD Unavailable Sabino Romano DPM Unavailable Kyle Roberts MD Primary Care Provider Mehreen Johnston MD PhD Unavailable [phone] Encounter Details Date Type Department Care [...] Visit Internal Medicine Margot Branham MD [address] [place] [address] (Wo rk) documented as of this encounter Visit Diagnoses Not on filedocumented in this encounter Additional Health Concerns Assessment Noted Time PHQ-9 Depression Total Score: 0 11/22/2019 10:49 AM CS T documented as of this encounter Care Teams Tattoo Designer Relationship Specialty Start Date End Date Kyle Roberts MD PCP - General Family Practice 11/15/19 10/27/[address] [place] [address] Carlota Landeros MD MD Urology 04/10/[address] [place] [address] Michelle Montana, MODESTA Registered Nurse Urology 05/07/17 Anh Costa APRN CABLE TELEVISION ACCESS COORDINATOR Nurse Practitioner Nurse Practitioner 10/07 Martinez Galicia MD MD Ophthalmology 04/18/18 420 [place] [address] Sabino Romano DPM MD Podiatry 08/11/[address] [address] Mehreen Johnston MD PhD MD Family Practice 11/15/19 909 [place] [address] documented as of this encounter
--- OUTSIDE RECORDS SUMMARY | 2022-07-30 20:03 | XMS_ITS | Encounter Summary ---
:1945 Author Organization [place] Address [address] [place] [address]. [place] [address] Care Team Providers Name Role Phone Carlota Landeros MD Unavailable Michelle Montana RN Unavailable Anh Costa CHANNEL PROCESS PLANT OPERATOR BRIDAL SALES CONSULTANT Unavailable Unavailable Martinez Galicia MD Unavailable Sabino Romano DPM Unavailable Kyle Roberts MD Primary Care Provider Mehreen Johnston MD PhD Unavailable [phone] Margot Branham MD Unavailable Encounter Details Date [...] Visit Internal Medicine Margot Branham MD [address] [place] [address] (Wo rk) documented as of this encounter Visit Diagnoses Not on filedocumented in this encounter Additional Health Concerns Assessment Noted Time PHQ-9 Depression Total Score: 0 11/22/2019 10:49 AM CS T documented as of this encounter Care Teams Solution Manager Relationship Specialty Start Date End Date Kyle Roberts MD PCP - General Family Practice 11/15/19 10/27/[address] [place], [place] [phone] Carloat Landeros MD MD Urology 04/10/[address] [place], [place] [address] Michelle Montana, MODESTA Registered Nurse Urology 05/07/17 Anh Costa APRN BRIDAL SALES CONSULTANT Nurse Practitioner Nurse Practitioner 10/07 Martinez Galicia MD MD Ophthalmology 04/18/[address] [place] [phone] Sabino Romano DPM MD Podiatry 08/11/[address] [address] Mehreen Johnston MD PhD MD Family Practice 11/15/[address] [place] [address] Margot Branham MD MD Internal Medicine 04/17/[address] [phone] documented as of this encounter
--- OUTSIDE RECORDS SUMMARY | 2022-07-30 20:03 | XMS_ITS | Encounter Summary ---
:1945 Author Organization [place] Address [address] [place] [address]. [place] [address] Care Team Providers Name Role Phone Carlota Landeros MD Unavailable Michelle Montana RN Unavailable Anh Costa MEDICAID ELIGIBILITY SPECIALIST BRIM EDGE TRIMMER Unavailable Unavailable Martinez Galicia MD Unavailable Sabino Romano DPM Unavailable Kyle Roberts MD Primary Care Provider Mehreen Johnston MD PhD Unavailable [phone] Reason for Visit Reason Comments Consult For lid darkening Encounter Details Date Type Department Care Team Description 12/11/2019 Office Visit Jody Hussein, Dermatochalasis of both Ophthalmology MD Levy lower eyelids (Primary 909 [facility] SE 909 [facility] Dx) 4th [place], [place] [phone] Social History Tobacco Use Types Packs/Day [...] years -History of BULB 30yrs ago in [facility] -No prior lower lid surgery, botox, filler [...] Visit Internal Medicine LogeaMargot man MD [address] 8056[address] (Wo rk) documented as of this encounter [...] documented as of this encounter Care Teams Plating Technician Relationship Specialty Start Date End Date Kyle Roberts MD PCP - General Family Practice 11/15/19 10/27/[address] [place], [place] [address] Carlota Landeros MD MD Urology 04/10/[address] [place], [place] [address] Michelle Montana, MODESTA Registered Nurse Urology 05/07/17 Anh Costa APRN BRIM EDGE TRIMMER Nurse Practitioner Nurse Practitioner 10/07 Martinez Galicia MD MD Ophthalmology 04/18/18 420 [place], [place] [address] Sabino Romano DPM MD Podiatry 08/11/[address] [phone] Mehreen Johnston MD PhD Family Practice 11/15/19 909 [place] [address] documented as of this encounter
--- OUTSIDE RECORDS SUMMARY | 2022-07-30 20:03 | XMS_ITS | Encounter Summary ---
:1945 Author Organization [place] Address [address] [place] [address]. [place] [address] Care Team Providers Name Role Phone Carlota Landeros MD Unavailable Michelle Montana RN Unavailable Anh Costa APRN PROJECT FINANCIAL ANALYST Unavailable Unavailable Martinez Galicia MD Unavailable Sabino Romano DPM Unavailable Kyle Roberts MD Primary Care Provider Mehreen Johnston MD PhD Unavailable [phone] Margot Branham MD Unavailable Encounter Details Date Type Department Care Team Description 07/05/[address] [facility] for Anh Costa Hyperli pidemia LDL goal Cardiovascular Disease CLAUDIA Marsh PROJECT FINANCIAL ANALYST <[address] [place] [address] Social History Tobacco Use Types Packs/Day [...] Visit Internal Medicine Margot Branham MD [address] [place] [address] (Wo rk) documented as of this encounter Results Lipid panel reflex to direct LDL Fasting (09/02/2020 3:22 PM MULTIMEDIA PROJECT MANAGER) [facility] Method Time Signature Cholesterol 175 <200 mg/dL 09/02/2020 [facility] 6:27 PM [facility] Triglycerides 104 <150 mg/dL 09/02/2020 [facility] 6:27 PM [facility] HDL Cholesterol 83 >49 mg/dL 09/02/2020 [facility] 6:27 PM [facility] LDL Cholesterol 72 <100 mg/dL 09/02/2020 [facility] O F Calculated 6:27 PM [facility] Comment: Desirable: <100 mg/dl Non HDL Cholesterol 93 <130 mg/dL 09/02/2020 6:27 PM [facility] Specimen Anatomical Collection Method Collection Time Receive d Time (Source) Location / / Volume Laterality Blood specimen 09/02/2020 3:22 PM 020 3:23 (specimen) MULTIMEDIA PROJECT MANAGER PM MULTIMEDIA PROJECT MANAGER Anh Costa APRN, CNP LAB - BLOOD ORDERABLES Performing Organization Address City/State/ZIP Code Phon e Number [address] [id number] [facility] documented in this encounter Visit Diagnoses Diagnosis Hyperlipidemia LDL goal <100 Other and unspecified hyperlipidemia documented in this encounter Additional Health Concerns Assessment Noted Time PHQ-9 Depression Total Score: 0 11/22/2019 10:49 AM CS T documented as of this encounter Care Teams Wellness Coach Relationship Specialty Start Date End Date Kyle Roberts MD PCP - General Family Practice 11/15/19 10/27/[address] [place] [address] Carlota Landeros MD MD Urology 04/10/[address] [place] [address] Michelle Montana, MODESTA Registered Nurse Urology 05/07/17 [place], Anh Salma, CHICKEN TENDER PROJECT FINANCIAL ANALYST Nurse Practitioner Nurse Practitioner 10/07 Martinez Galicia MD MD Ophthalmology 04/18/18 420 [place], [place] [address] Sabino Romano DPM MD Podiatry 08/11/[address] [phone] Mehreen Johnston MD PhD MD Family Practice 11/15/[address] [place] [phone] Margot Branham MD MD Internal Medicine 04/17/[address] [place] [phone] documented as of this encounter
--- OUTSIDE RECORDS SUMMARY | 2022-07-30 20:03 | XMS_ITS | Encounter Summary ---
:1945 Author Organization [place] Address [address] [place] [address]. [place] [address] Care Team Providers Name Role Phone Carlota Landeros MD Unavailable Michelle Montana RN Unavailable Anh Costa INTERLOCKER MAINTAINER PRODUCT MARKETING ANALYST Unavailable Unavailable Martinez Galicia MD Unavailable Sabino Romano DPM Unavailable Kyle Roberts MD Primary Care Provider Mehreen Johnston MD PhD Unavailable [phone] Margot Branham MD Unavailable Reason for Visit Reason Comments Eye Discharge Both Eyes Encounter Details Date Type Department Care Team Description 05/29/2020 Office Visit [facility] Eye Sergio Galicia MD [address] [place] [address] Left without seen Clinic - [place] Celeste Mcgrath MD [address] [address] [place] [id number] [facility] [address] [place] [phone] Social History Tobacco Use Types Packs/Day [...] Visit Internal Medicine Margot Branham MD [address] [phone] (Wo rk) documented as of this encounter Visit Diagnoses Not on filedocumented in this encounter Additional Health Concerns Assessment Noted Time PHQ-9 Depression Total Score: 0 11/22/2019 10:49 AM CS T documented as of this encounter Care Teams Oyster Picker Relationship Specialty Start Date End Date Kyle Roberts MD PCP - General Family Practice 11/15/19 10/27/[address] [place], [place] [address] Carlota Landeros MD MD Urology 04/10/[address] [place], [place] [phone] Michelle Montana, RN Registered Nurse Urology 05/07/17 Anh Costa, INTERLOCKER MAINTAINER PRODUCT MARKETING ANALYST Nurse Practitioner Nurse Practitioner 10/07 Martinez Galicia MD MD Ophthalmology 04/18/18 420 [place] [address] Sabino Romano DPM MD Podiatry 08/11/[address] [address] Mehreen Johnston MD PhD MD Family Practice 11/15/[address] [place] [address] Margot Branham MD MD Internal Medicine 04/17/[address] [address] documented as of this encounter
--- OUTSIDE RECORDS SUMMARY | 2022-07-30 20:03 | XMS_ITS | Encounter Summary ---
:1945 Author Organization [place] Address [address] [place] [address]. [place] [address] Care Team Providers Name Role Phone Carlota Landeros MD Unavailable Michelle Montana RN Unavailable Anh Costa MERCHANDISING MANAGER PAGEANT DIRECTOR Unavailable Unavailable Martinez Galicia MD Unavailable Sabino Romano DPM Unavailable Kyle Roberts MD Primary Care Provider Mehreen Johnston MD PhD Unavailable [phone] Encounter Details Date Type Department Care [...] Office Visit Internal Medicine Margot Branham MD [address] [place] [address] (Wo rk) documented as of this encounter Visit Diagnoses Not on filedocumented in this encounter Additional Health Concerns Assessment Noted Time PHQ-9 Depression Total Score: 0 08/17/2019 2:03 PM DIRECTOR OF SPEECH PATHOLOGY documented as of this encounter Care Teams Fire And Explosion Investigator Relationship Specialty Start Date End Date Kyle Roberts MD PCP - General Family Practice 11/15/19 10/27/[address] [place] [address] Carlota Landeros MD MD Urology 04/10/[address] [place], [place] [phone] Michelle Montana, RN Registered Nurse Urology 05/07/17 Anh Costa APRN PAGEANT DIRECTOR Nurse Practitioner Nurse Practitioner 10/07 Martinez Galicia MD MD Ophthalmology 04/18/18 420 [place] [address] Sabino Romano DPM MD Podiatry 08/11/[address] [address] Mehreen Johnston MD PhD MD Family Practice 11/15/19 909 [place] [address] documented as of this encounter
--- OUTSIDE RECORDS SUMMARY | 2022-07-30 20:03 | XMS_ITS | Encounter Summary ---
:1945 Author Organization [place] Address [address] [place] [address]. [place] [address] Care Team Providers Name Role Phone Carlota Landerso MD Unavailable Michelle Montana RN Unavailable Anh Costa AIRFRAME AND POWERPLANT MECHANIC ANIMAL CARE TAKER Unavailable Unavailable Martinez Galicia MD Unavailable Sabino Romano DPM Unavailable Kyle Roberts MD Primary Care Provider Mehreen Johnston MD PhD Unavailable [phone] LogMargot sadler MD Unavailable Martinez Galicia MD Unavailable LogMargot sadler MD Unavailable Margot Branham MD Primary Care Provider Levy Hussein MD Unavailable Alonso Tejeda MD Unavailable Reason for Visit Reason Onset Date Comments Refill Request 07/01/2020 Encounter Details Date Type Department Care Team Description 07/01/2020 [facility] Damian Villanueva MD Refill Request Clinic [address] [place] [address] [place], [place] [phone] (Wo rk) [phone] Social History Tobacco Use Types Packs/Day Years [...] Visit Internal Medicine Margot Branham MD [address] [place] [phone] (Wo rk) documented as of this encounter Visit Diagnoses Diagnosis Hyperlipidemia LDL goal <100 Other and unspecified hyperlipidemia documented in this encounter Additional Health Concerns Assessment Noted Time PHQ-9 Depression Total Score: 0 11/22/2019 10:49 AM CS T documented as of this encounter Care Teams Rug Setter [place]minster Relationship Specialty Start Date End Date Kyle Roberts MD PCP - General Family Practice 11/15/19 10/27/[address] [place], [place] [address] Margot Branham MD PCP - General Internal Medicine 10/28/[address] [place] [phone] Carlota Landeros MD MD Urology 04/10/[address] [place], [place] [address] Michelle Montana, MODESTA Registered Nurse Urology 05/07/17 Anh Costa APRN Nurse Practitioner Nurse Practitioner 10/07/17 Martinez Hernandez MD Ophthalmology 04/18/[address] [place] [phone] Sabino Romano DPM MD Podiatry 08/11/18 [facility] [address] [phone] Mehreen Johnston MD Family Practice 11/15/19 MD PhD [address] [place] [address] Margot Branham MD MD Internal Medicine 04/17/[address] [place] [phone] Martinez Galicia, Assigned Surgical 07/26/20 MD Provider [address] [place] [phone] Margot Branham MD Assigned PCP 09/15/[address] [place] [address] Levy Hussein MD Assigned Surgical 03/23/21 06/14/[address] [place] [address] Provider [place], [place] [phone] Alonso Tejeda MD MD Internal Medicine 06/19/[address] [place] [address] documented as of this encounter
--- OUTSIDE RECORDS SUMMARY | 2022-07-30 20:04 | XMS_ITS | Encounter Summary ---
:1945 Author Organization [place] Address [address] [place] [address]. [place] [address] Care Team Providers Name Role Phone Lisseth Vang MD Primary Care Provider Carlota Landeros MD Unavailable Lisseth Vang MD Unavailable Michelle Montana RN Unavailable Anh Costa APRN BACK GRINDER Unavailable Unavailable Martinez Galicia MD Unavailable Sabino Romano DPM Unavailable Reason for Visit Reason Comments Blood Draw Labs drawn via LABORER HOISTING by RN in l ab. Lab only appt. Consultation - Closed Specialty Diagnoses / Procedures Referred By Contact Refer red To Contact Diagnoses Family history of colon cancer Parul Salmeron APRN BACK GRINDER [address] [place] [address] [address] Referral ID Status Reason Start Date Expiration Date Visits Requ ested Visits Authorized [id number] Closed 12/08/2018 12/08/2019 1 1 Encounter Details Date Type Department Care Team Description 04/10/2019 Office Visit [facility] Parul Browning APRN BACK GRINDER [address] [facility] [address] [phone] Family history of colon cancer (Primary Dx); [facility] [address] [place] [address] Family history of malignant neoplasm of ovary; 909 [facility] Family [place] [address] Social History Tobacco Use [...] tract <1% 1-4% Small bowel <1% 3-6% Brain/DIGESTER COOK <1% 1-3% Pancreas <1% 1-6% MUTYH-Associated Polyposis [...] MAP Colon 5% 50-100% Duodenal <1% 5% Covington syndrome Chris syndrome is a hereditary condition that increases the risk for breast, thyroid, endometrial, colon, and kidney cancer. A single mutation in the PTEN gene causes Covington syndrome and increases cancer risk. The table below shows the chance that someone with a PTEN mutation would develop cancer in their lifetime8,9. Other benign features seen in some individuals with Covington syndrome include benignskin lesions (facial papules, keratoses, [...] more commonly found in individuals with Ashkenazi Scientologist [email or web address]. Mutations in GREM1 are associated with colon polyps andtherefore an increased risk of colon cancer; however the estimated cancer risk is not well . POLD1 and POLE POLD1 and POLE are moderate-risk colon cancer genes. Carriers of a mutation in one of these genes increases the lifetime risk of colorectal ,18,19,20. Mutations in these genes may also be [...] risk for developing cancer. Image obtained from [employer], 2013 In the case of MUTYH-Associated [...] one from each parent. Image obtained from [employer], 2016 Genetic Information Nondiscrimination Act (RIYA) RIYA is a federal law that protects individuals from health insurance or employment discrimination based on a genetic test result alone. Although rare, there are currently no legal protections in termsof life insurance, terminal computer operator care, or disability insurances. Visit the National Human Genome Research [place] at Genome.gov/05004624 to learn more. Reducing Cancer Risk Each [...] one day affect their own health? Resources FashFolio.Clearas Water Recovery No Stomach for Cancer, Inc. nostomachforcancer.org Stomach Cancer Relief Network scrnet.org Collaborative Group of the Americas on Inherited Colorectal Cancer (CGA) cgaicc.com Cancer Care cancercare.org Taiwanese Cancer Society (ACS) cancer.org National Cancer [place] (NCI) cancer.org Knight Syndrome International lynchcancers.com Please call us if you have any questions or concerns. Cancer Risk Management Program [phone]-P-[phone] ( ) ? Stephy Ambrosio, MS, [facility] [phone] ? Gisselle Jensen, MS, [facility] [phone] ? Harriet Smyth, MS, [facility] [phone] ? Bassam Gupta, MS, [facility] [phone] ? Lisy Neff, MS, [facility] [phone] ? Annie Walters, MS, [facility] [phone] References 1. Rober Morales, Raymond Moe, Joshua [...] mutations in MUTYH. Int J of Cancer. 2016;139:9232-6133. 6. Pablo S, Susu S, Vika H, Nicky K, Buitrago M, et al. MUTYH-associated polyposis: 70 of 71 patients with biallelic mutations present with an attenuated or atypical phenotype. Int J of Cancer. 2006;119:807-814. 7. Roxanne G, Kole F, Augusto I, Miroslava M, Maramec H, et al. MUTYH mutation carriers have increased breast cancer risk. Cancer. 2012;7524-9809. 8. Gomez MH, Hang J, Armida J, Oz LA, Charisma MS, Eng C. Lifetime cancer risks in individuals with germline PTEN mutations. Clin Cancer Res. 2012;18:400-7. 9. Pilarski R. Covington Syndrome: A Critical Review of the Clinical Literature. J Domenica Dough Cutting Machine Operator. 2009:18:13-27. 10. National Comprehensive Cancer Network. Clinical practice guidelines in oncology, colorectal cancer screening. Available online (registration required). 2012. 11. National Cancer [place]. SEER Cancer Stat Fact Sheets. September 2013. 12. CHEK2 Breast Cancer Case-Control Consortium. CHEK2*1100delC and susceptibility to breast cancer:A collaborative analysis involving 10,860 breast cancer cases and 9,065 controls from 10 studies. AmJ Hum Domenica, 74 (2004), pp. 9700-2225 13. Barb T, Karl S, Yaar Pulliam, et al. Spectrum of Mutations in BRCA1, BRCA2, CHEK2, and TP53 in Families at High Risk of Breast Cancer. SPRING. 2006;295(12):7056-8044. 14. Maureen Corbin, Ronnie Perera, Karma Almonte, et al. Risk of breast cancer in women with a CHEK2 mutation with and without a family history of breast cancer. J Clin Oncol. 2011;29:1328-2404. 15. Alysa Moe, Torie E, Kamaljit J, Ramírez N, Phil [...] cancer and polyposis. Hum. Mol. Domenica. 23, 6738-64 (2014). 20. Boris Crawley et al. Frequency [...] important to consider, as individuals of Ashkenazi Scientologist ancestry have a higher chance of having [...] Other benignfeatures seen in some individuals with Covington syndrome include benign skin lesions (facial papules, [...] this risk range is dependent upon family [email or web address]. PALB2 mutationshave also been associated with increased [...] discrimination protections in terms of life insurance, long-term care, or disability insurances. Visit the National Human Garmentory Research [place] website to learn more. Reducing Cancer Risk [...] Our Risk of Cancer Empowered facingourrisk.org Bright Sabana bebrightpink.org Li-Fraumeni Syndrome Association lfsassociation.org PTEN World PTENworld.Clearas Water Recovery No stomach for cancer, Inc. nostomachforcancer.org Stomach cancer relief network Scrnet.org Collaborative Group of the Americas on Inherited Colorectal Cancer (CGA) cgaicc.Clearas Water Recovery Cancer Care cancercare.org Taiwanese Cancer Society (ACS) cancer.org National Cancer [place] (NCI) cancer.gov Please call us if you have any questions or concerns. Cancer Risk Management Program [phone]-UMP-CANCER ( ) ? Stephy Ambrosio, MS, [facility] [phone] ? Gisselle Jensen, MS, [facility] [phone] ? Harriet Smyth, MS, [facility] [phone] ? Bassam Gupta, MS, [facility] [phone] ? Lisy Neff, MS, [facility] [phone] ? Annie Walters, MS, [facility] [phone] References 21. José Miguel A, Oscar PDP, [...] mutations. Clin Cancer Res. 2012;18:400-7. 27. Car Malone. Chris Syndrome: A Critical Review of the Clinical Literature. J Domenica Dough Cutting Machine Operator. 2009:18:13-27. 28. Ivana Almonte, Mike D, Rosie [...] studies. AmJ Hum Domenica, 74 (2004), pp. 3641-0299 32. Barb T, Karl S, Yara K, et al. Spectrum of Mutations in BRCA1, BRCA2, CHEK2, and TP53 in Families at High Risk of Breast Cancer. SPRING. 2006;295(12):2694-7080. 33. Maureen Corbin, Ronnie Perera, Karma Almonte, et al. Risk of breast cancer in women with a CHEK2 mutation with and without a family history of breast cancer. J Clin Oncol. 2011;29:7526-9801. 34. Vazquez H, Christelle E, Adair SJ, et al. Contribution of germline mutations in the RAD51B, RAD51C, and RAD51D genes to ovarian cancer in the population. J Clin Oncol. 2015;33(26):6741-0168. Doi:10.1200/JCO.2015.61.2408. 35. Ame Khanna, Kushal LEAL, Filipe P, et al. Mutations in BRIP1 confer high risk of ovarian cancer. Rhina Domenica. 2011;43(11):0554-0891. doi:10.1038/ng.955. documented in this encounter Progress Notes Lisy Neff GC - 04/10/2019 9:00 AM CDT 04/10/2019 Referring Provider: Parul Salmeron APRN CNP Presenting Information: I met with Yamileth Kori today for genetic counseling at the Cancer Risk Management Program at the [facility] to discuss her family history of [...] of smoking. ?? Her maternal ethnicity is Spanish and Yoruba. Her paternal ethnicity is Spanish, Lao, Yoruba, and Latvian. There is no known Ashkenazi Scientologist ancestry on either side of her family. [...] syndrome (CDK4,CDKN2A), Juvenile Polyposis syndrome (BMPR1A, SMAD4), Covington syndrome (PTEN), Li Fraumeni syndrome (TP53), Peutz-Jeghers [...] was provided with a detailed brochure from [facility] explaining the CancerNext testing. ?? Consent was obtained and genetic testing for CancerNext was sent to [facility]. Turn around time: 3-4 weeks. ?? [...] testing using the CancerNext panel offered by [facility]. 2) This information should be available in 3-4 weeks. 3) Yamileth will return to clinic to discuss the results. Face to face time: 45 minutes Lisy Neff MS, [facility] Licensed Genetic Counselor Office: [phone] Pager: [phone] documented in this encounter Nursing Notes Teri Ruvalcaba, MODESTA - 04/10/2019 9:00 AM CDT Chief Complaint Patient presents with ??? Blood Draw Labs drawn via LABORER HOISTING by RN in lab. Lab only appt. Teri Ruvalcaba RN documented in this encounter Plan of Treatment Upcoming Encounters Date Type Specialty Care Team Description 09/10/2022 Office Visit Internal Medicine Margot Branham MD [address] [address] (Wo rk) documented as [...] (04/10/2019 10:48 AM CDT) Analysis Performed At [facility] logist Time Signature Lab Scanned SEND [...] Value Ref Test Analysis Performed At [facility] gist Range Method Time Signature Miscellaneous Specimen Received, Reordered and sent to Performing laboratory - Report to follow upon 04/10/2019 [facility] Test completion. 11:18 AM [place] CDT [facility] Specimen Anatomical Collection Method Collection Time Receive d Time (Source) Location / / Volume Laterality Blood specimen 04/10/2019 10:48 9 (specimen) AM CDT 10:50 AM CDT Merrill Garcia MD LAB - BLOOD ORDERABLES Performing Organization Address City/[facility]/ZIP Code Phon e Number [address] [address] [facility] documented in this encounter Visit Diagnoses Diagnosis [...] as of this encounter Care Teams Chief Technical Officer Relationship Specialty Start Date End Date Lisseth Vang MD PCP - General 04/13/16 11/14/[address] [place] [address] Carlota Landeros MD MD Urology 04/10/[address] [place] [address] Lisseth Vang MD PCP Family Practice 03/30/16 11/14/[address] [place] [address] Michelle Montana, RN Registered Nurse Urology 05/07/17 Anh Costa APRN BACK GRINDER Nurse Practitioner Nurse Practitioner 10/07 Martinez Galicia MD MD Ophthalmology 04/18/18 420 [place] [address] Sabino Romano DPM MD Podiatry 08/11/[address] [phone] documented as of this encounter
--- OUTSIDE RECORDS SUMMARY | 2022-07-30 20:04 | XMS_ITS | Encounter Summary ---
:1945 Author Organization [place] Address [address] [place] [address]. [place] [address] Care Team Providers Name Role Phone Lisseth Vang MD Primary Care Provider Carlota Landeros MD Unavailable Lisseth Vang MD Unavailable Michelle Montana RN Unavailable Anh Costa APRN HOP FARMER Unavailable Unavailable Martinez Galicia MD Unavailable Sabino [...] Visit Internal Medicine Margot Branham MD [address] [place] [address] (Wo rk) documented as of this encounter Visit Diagnoses Not on filedocumented in this encounter Additional Health Concerns Assessment Noted Time PHQ-9 Depression Total Score: 0 08/17/2019 2:03 PM STOCK LAYER documented as of this encounter Care Teams Convenience Recycle Center Tech Relationship Specialty Start Date End Date Lisseth Vang MD PCP - General 04/13/16 11/14/[address] [place] [address] Carlota Landeros MD MD Urology 04/10/[address] [place], [place] [address] Lisseth Vang MD PCP Family Practice 03/30/16 11/14/[address] [place] [address] Michelle Montana, MODESTA Registered Nurse Urology 05/07/17 Anh Costa APRN HOP FARMER Nurse Practitioner Nurse Practitioner 10/07 Martinez Galicia MD MD Ophthalmology 04/18/18 420 [place] [address] Sabino Romano DPM MD Podiatry 08/11/[address] [address] documented as of this encounter
--- OUTSIDE RECORDS SUMMARY | 2022-07-30 20:04 | XMS_ITS | Encounter Summary ---
:1945 Author Organization [place] Address [address] [place] [address]. [place] [address] Care Team Providers Name Role Phone Lisseth Vang MD Primary Care Provider Carlota Landeros MD Unavailable Lisseth Vang MD Unavailable Michelle Montana RN Unavailable Anh Costa APRN ASIAN STUDIES PROFESSOR Unavailable Unavailable Martinez Galicia MD Unavailable Sabino Romano DPM Unavailable Reason for Visit Reason Comments Medication Refill estradiol (ESTRACE VAGINAL) 0.1 MG/GM Encounter Details Date Type Department Care Team Description 07/03/2019 Refill [facility] Urology and Dee Landeros MD Medication Refill Inst for Prostate and [address] (estradiol (ESTRACE Urologic Cancers 100 VAGINAL) 0.1 MG/GM ) [address] [place], [place] [address] [place] [address] [place] [address] Social History Tobacco Use Types [...] appointment with Dr. Carlota Landeros or the PA/ASIAN STUDIES PROFESSOR in the Urology clinic to receive additional [...] Internal Medicine Margot Branham MD [address] [address] (Wo rk) documented as of this encounter [...] as of this encounter Care Teams Electric Meter Reader Relationship Specialty Start Date End Date Lisseth Vang MD PCP - General 04/13/16 11/14/[address] [place], [place] [address] Carlota Landeros MD MD Urology 04/10/[address] [place], [place] [address] Lisseth Vang MD PCP Family Practice 03/30/16 11/14/[address] [place] [address] Michelle Montana, RN Registered Nurse Urology 05/07/17 nAh Costa APRN ASIAN STUDIES PROFESSOR Nurse Practitioner Nurse Practitioner 10/07 Martinez Galicia MD MD Ophthalmology 04/18/18 420 [place] [address] Sabino Romano DPM MD Podiatry 08/11/[address] [address] documented as of this encounter
--- OUTSIDE RECORDS SUMMARY | 2022-07-30 20:04 | XMS_ITS | Encounter Summary ---
:1945 Author Organization [place] Address [address] [place] [address] Care Team Providers Name Role Phone Lisseth Vang MD Primary Care Provider Carlota Landeros MD Unavailable Lisseth Vang MD Unavailable Michelle Montana RN Unavailable Anh Costa APRN FUNERAL ARRANGER Unavailable Unavailable Martinez Galicia MD Unavailable Sabino Romano DPM Unavailable Reason for Visit Reason Comments Wellness Visit Annual Visit Encounter Details Date Type Department Care Team Description 08/17/2019 Office Visit [facility], Annual phy sical exam (Primary Dx); [facility] MD Lisseth Left breast lump; [place] [address] Benign essential hypertensio n; [place] [facility] [address] Hyperlipidemia LDL goal <100 BLDG POST, 3RD FLR,[address] [place] [address] [phone] [facility] (Work) [place], [place] [address] [phone] Social History Tobacco Use Types Packs/Day Years [...] Comments Blood Pressure 131/70 08/17/2019 2:01 PM GOOD HUMOR VENDOR Pulse 72 08/17/2019 2:01 PM GOOD HUMOR VENDOR Temperature - - Respiratory Rate - - Oxygen Saturation - - Inhaled Oxygen Concentration - - Weight 64.2 kg (141 lb 9.6 oz) 08/17/2019 2:01 PM GOOD HUMOR VENDOR Height 167.6 cm (5' 6) 08/17/2019 2:01 PM GOOD HUMOR VENDOR Body Mass Index 22.85 08/17/2019 2:01 PM GOOD HUMOR VENDOR documented in this encounter Patient Instructions Patient InstructionsLisseth Vang MD - 08/17/2019 2:20 PM CST WHS: 1. CHIROPRACTOR ASSISTANT: Ashli Alan, 2. Internal medicne Dr. Crabtree, 3. Family Medicine: Dr. Roberts HALF-WAY: 1. Dr. Jey Duke, 2. Dr. Guille Mckeon 3. ELEAZAR Hall Below are a few suggestions for a more integrated, holistic primary care practitioner. I am not sure if all takes insurance or if any are taking new patients. Manjula Bethea, PAUL, DNP: [facility] Ankita Hudson MD. [facility] Bertha Tan DO. [facility], internal medicine at [facility] in [place] Manjula Cohn, internal medicine at [facility] Salma Bandar, with [facility] Tete Agarwal at [facility] in [place] at [facility]. [facility] - doing integrative family medicine Selma Xiong at [facility] in [facility] [phone] Manjula Villafana with Mercedes Lowery [facility] Kendra Tidwell in [place]; [email or web address] Joie Jackson at [address] in [place] Barbie Smith at [facility] Parul Lockhart in at [facility] Sera Jed in the [place] [facility] Chayito Ruth DO, with [facility] Denise Wang at [facility] at [address] [place] [address] [facility] Maddie Turner at [facility] at [place] and [facility] Brigitte Orellana in [place]; [email or web address] Dr. Kori Gaming [facility] Dr. Sendy Sims, [[facility]] HUMOR VENDOR documented in this encounter Progress Notes Lisseth [...] mediterranean and DASH diet - following with [facility] Wt Readings from Last 5 Encounters: 08/17/19 64.2 kg (141 lb 9.6 oz) 04/10/19 64.2 kg (141 lb 8 oz) 12/08/18 65.5 kg (144 lb 6.4 oz) 10/11/18 66.7 kg (147 lb) 10/10/18 66.7 kg (147 lb) - [place] Hyperlipidemia - on Crestor 5 mg Hypertension - Irbesartan 150 mg - Follows with anh Costa at the [facility] Shoulder Surgery: - April [address] Salazar at 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 Has uterine fibroids [De Dios]. Not on hormone therapy PAST MEDICAL HISTORY: 2) Osteoarthritis of the right hip Minimal invasive surgery 09/09. Shoulder surgery 2018. 3) Hypertension 4) Osteoporosis: on calcium and vitamin D - will have follow-up DEXA at [facility] 5) Atrophic vaginitis - using estrace [...] Retired March 2015. Has a home in [place]. HCM: mammogram 04/2018; colonoscopy 05/2015; Past Surgical [...] as Registered Nurse (Urology) Anh Costa APRN FUNERAL ARRANGER as Nurse Practitioner (Nurse Practitioner) Martinez Galicia [...] Mammogram due [last 04/2018]. Will complete at [facility] 3. Uterine leiomyoma, unspecified location - Exploratory surgery with the [facility] [06/2018]. Will continue to monitor 4. Hyperlipidemia, unspecified hyperlipidemia type - On Crestor 5 mg and mediterranean diet 5. Immunization - Shringrix series completed and flu shot completed 6. Osteoporosis - Will follow with [facility] for bone health Left breast lump/fullness - Advised MA Diagnostic Bilateral w/[place] rather than waiting until a September visit at [facility] End of Life Planning: Patient currently has [...] Lisseth Vang MD [facility] HUMOR VENDOR documented in this encounter Nursing Notes Addison Martinez LPN - 08/17/2019 2:20 PM CST Chief Complaint Patient presents with ??? Wellness Visit ??? Annual Visit HUMOR VENDOR documented in this encounter Plan of Treatment Upcoming Encounters Date Type Specialty Care Team Description 09/10/2022 Office Visit Internal Medicine LogeaMargot man MD [address] [address] (Wo rk) documented as of this encounter Results MA Diagnostic Bilateral w/Winston (09/05/2019 3:16 PM GOOD HUMOR VENDOR) Anatomical Region Laterality Modality Breast Bilateral Mammography Specimen (Source) Anatomical Location Collection Method / Collectio n Time Received Time / Laterality Volume Impressions 09/05/2019 3:33 PM GOOD HUMOR VENDOR IMPRESSION: BI-RADS CATEGORY: 1 - ??NEGATIVE. RECOMMENDED FOLLOW-UP: Annual Mammograph y. Clinical follow-up physician palpated ar ea of concern. ??Given lack of imaging findings in the left ??breast, m anagement would need to be based on clinical grounds. The patient was given the results of the examination. TYE MARTINEZ MD Narrative 09/05/2019 3:33 PM GOOD HUMOR VENDOR Examination: Bilateral digital diagnostic mammography and digital [...] Depression Total Score: 0 08/17/2019 2:03 PM GOOD HUMOR VENDOR documented as of this encounter Care Teams Automotive Parts Person Relationship Specialty Start Date End Date Lisseth Vang MD PCP - General 04/13/16 11/14/[address] [place], [place] [address] Carlota Landeros MD MD Urology 04/10/[address] [place], [place] [address] Lisseth Vang MD PCP Family Practice 03/30/16 11/14/[address] [place], [place] [address] Michelle Montana, RN Registered Nurse Urology 05/07/17 Anh Costa APRN FUNERAL ARRANGER Nurse Practitioner Nurse Practitioner 10/07 Martinez Galicia MD MD Ophthalmology 04/18/18 420 [place], [place] [address] Sabino Romano DPM MD Podiatry 08/11/[address] [phone] documented as of this encounter
--- OUTSIDE RECORDS SUMMARY | 2022-07-30 20:04 | XMS_ITS | Encounter Summary ---
:1945 Author Organization [place] Address [address] [place] [address]. [place] [address] Care Team Providers Name Role Phone Lisseth Vang MD Primary Care Provider Carlota Landeros MD Unavailable Lisseth Vang MD Unavailable Michelle Montana RN Unavailable Anh Costa APRN LATENT PRINT EXAMINER Unavailable Unavailable Martinez Galicia MD Unavailable Sabino Romano DPM Unavailable Encounter Details Date Type Department Care Team Description 04/10/2019 Orders Only [facility] Hyperlipidemia, unspecified [address] [place] [address] hyperlipidemia type 1st [place] [address] Social History Tobacco Use Types [...] Team Description 09/10/2022 Office Visit Internal Medicine LogeaisMarogt MD [address] [place] [address] (Wo rk) documented as of this encounter Results (ABNORMAL) LipoFit by NMR (04/11/2019 8:45 AM CDT) [facility] gist Method Time Signature Total Cholesterol 136 <=199 04/14/2019 [facility] mg/dL 7:17 PM CDT [facility] Triglycerides 65 30 - 149 04/14/2019 [facility] mg/dL 7:17 PM CDT [facility] HDL Cholesterol 75 (H) 40 - 59 04/14/2019 [facility] mg/dL 7:17 PM CDT [facility] LDL Cholesterol 48 <=129 04/14/2019 [facility] mg/dL 7:17 PM T [facility] HDL Size 10.0 >=8.9 nm 04/14/2019 [facility] 7:17 PM CDT [facility] Comment: (Note) INTERPRETIVE INFORMATION: HDL Particle S ize, NMR Percentiles in Reference Population: 25th ? 50th ? 75th 8.6 ?8.9 ?9.3 VLDL Size 52.2 (H) <=46.7 nm 04/14/2019 7:17 PM CDT [facility] Comment: (Note) INTERPRETIVE INFORMATION: VLDL Particle Size, NMR Percentiles in Reference Population: 25th ? 50th ? 75th 44.3 ? 46.7 ? 50.2 LDL Particle Size 21.5 >=20.7 nm 04/14/2019 7:17 PM CDT [facility] Comment: (Note) INTERPRETIVE INFORMATION: LDL Particle S ize, NMR Percentiles in Reference Population: 25th ? 50th ? 75th 19.6 ? 20.7 ? 22.5 Lge HDL Particle 12.3 >=4.2 umol/L 04/14/2019 7:17 PM C DT [facility] Comment: (Note) INTERPRETIVE INFORMATION: Large HDL Part icle Number, NMR Percentiles in Reference Population: 25th ? 50th ? 75th 2.0 ?4.2 ?7.3 HDL Particle 30.2 (L) >=33.0 umol/L 04/14/2019 7:17 PM [facility] Comment: (Note) INTERPRETIVE INFORMATION: HDL Particle N umber, NMR Percentiles in Reference Population: 25th ? 50th ? 75th 29.7 ? 33.0 ? 36.8 Lge VLDL Part <1.5 <=2.7 nmol/L 04/14/2019 7:17 PM [facility] Comment: (Note) INTERPRETIVE INFORMATION: Large VLDL Par ticle Number, NMR Percentiles in Reference Population: 25th ? 50th ? 75th 0.9 ?2.7 ?7.0 Small LDL Particle <165 <=634 nmol/L 04/14/2019 7:17 PM [facility] Comment: (Note) INTERPRETIVE INFORMATION: Small LDL Part icle Number, NMR Percentiles in Reference Population: 25th ? 50th ? 75th 220 ?634 ?949 LDL Particle number 609 <=1,135 nmol/L 04/14/2019 7:17 PM [facility] Comment: (Note) REFERENCE INTERVAL: LDL Particle Number, [...] SEE NOTE 04/14/2019 7:17 PM CD T [facility] Comment: (Note) Access [employer] Report using either link below: -Direct access: [email or web address] -Enter Username, Password: [email or web address] Username: [email or web address] Password: [email or web address] INTERPRETIVE INFORMATION: LipoFit by NMR See Compliance Statement B: appening/ CS Performed by [facility], [address] [place] [id number] [email or web address], Valeriano Rich MD, Lab. Director Specimen Anatomical Collection Method Collection Time Receive d Time (Source) Location / / Volume Laterality Blood specimen 04/11/2019 8:45 AM 019 8:46 (specimen) CDT AM CDT Anh Costa APRN LATENT PRINT EXAMINER LAB - BLOOD ORDERABLES Performing Organization Address City/State/[facility] Code Phon e Number [address] [address] [facility] documented in this encounter Visit Diagnoses Diagnosis Hyperlipidemia, unspecified hyperlipidem ia type documented in this encounter Additional Health Concerns Assessment Noted Time PHQ-9 Depression Total Score: 1 03/30/2018 7:10 AM CDT documented as of this encounter Care Teams Charge Loader Relationship Specialty Start Date End Date Lisseth Vang MD PCP - General 04/13/16 11/14/[address] [place], [place] [address] Carlota Landeros MD MD Urology 04/10/[address] [place] [address] Lisseth Vang MD PCP Family Practice 03/30/16 11/14/[address] [place], [place] [address] Michelle Montana, RN Registered Nurse Urology 05/07/17 Anh Costa APRN LATENT PRINT EXAMINER Nurse Practitioner Nurse Practitioner 10/07 Martinez Galicia MD MD Ophthalmology 04/18/18 420 [place] [address] Sabino Romano DPM MD Podiatry 08/11/[address] [place] [address] documented as of this encounter
--- OUTSIDE RECORDS SUMMARY | 2022-07-30 20:04 | XMS_ITS | Encounter Summary ---
:1945 Author Organization [place] Address [address] [place] [address]. [place] [address] Care Team Providers Name Role Phone Lisseth Vnag MD Primary Care Provider Carlota Landeros MD Unavailable Lisseth Vang MD Unavailable Michelle Montana RN Unavailable Anh Costa APRN ROTATING FIELD ASSEMBLER Unavailable Unavailable Martinez Galicia MD Unavailable Sabino Romano DPM Unavailable Reason for Visit Reason Comments Annual Eye Exam Pseudophakia - Both Eyes Encounter Details Date Type Department Care Team Description 08/15/2019 Office Visit [facility] Eye Martinez Galicia Vitre ous degeneration, right - Right Eye (Primary Dx); Clinic - Latoay Pearson MD Posterior vitreous detachment, right; Nakul Oneil [address] Pseudophakia - Both Eyes; Building [place], [place] Fuchs' endothelial dystrophy - Both Eyes [address] [place] [address] [address] Clin 9A [phone] [place], [place] (Work) [address] [phone] Social History Tobacco Use Types Packs/Day Years [...] patient and family.. - Martinez Galicia MD D OFFICER documented in this encounter Nursing Notes Calvin [...] MARISOL [place] August 15, 2019 8:52 AM D OFFICER documented in this encounter Plan of Treatment Upcoming Encounters Date Type Specialty Care Team Description 09/10/2022 Office Visit Internal Medicine LogeaisMargot MD [address] [place] [phone] (Wo rk) documented as of this encounter [...] documented as of this encounter Care Teams Full Service Vending Driver Relationship Specialty Start Date End Date Lisseth Vang MD PCP - General 04/13/16 11/14/[address] [place], [place] [address] Carlota Landeros MD MD Urology 04/10/[address] [place], [place] [address] Lisseth Vang MD PCP Family Practice 03/30/16 11/14/[address] [place], [place] [address] Michelle Montana, MODESTA Registered Nurse Urology 05/07/17 Anh Costa APRN ROTATING FIELD ASSEMBLER Nurse Practitioner Nurse Practitioner 10/07 Martinez Galicia MD MD Ophthalmology 04/18/18 420 [place] [address] Sabino Romano DPM MD Podiatry 08/11/[address] [place] [address] documented as of this encounter
--- OUTSIDE RECORDS SUMMARY | 2022-07-30 20:04 | XMS_ITS | Encounter Summary ---
:1945 Author Organization [place] Address [address] [place] [address]. [place] [address] Care Team Providers Name Role Phone Lisseth Vang MD Primary Care Provider Carlota Landeros MD Unavailable Lisseth Vang MD Unavailable Michelle Montana RN Unavailable Anh Costa APRN VIDEO MACHINES MECHANIC Unavailable Unavailable Martinez Galicia MD Unavailable [...] Visit Internal Medicine Margot Branham MD [address] [place] [address] (Wo rk) documented as of this encounter Visit Diagnoses Not on filedocumented in this encounter Additional Health Concerns Assessment Noted Time PHQ-9 Depression Total Score: 1 03/30/2018 7:10 AM CDT documented as of this encounter Care Teams Nurse Anesthetist Relationship Specialty Start Date End Date Lisseth Vang MD PCP - General 04/13/16 11/14/[address] [place] [address] Carlota Landeros MD MD Urology 04/10/[address] [place], [place] [address] Lisseth Vang MD PCP Family Practice 03/30/16 11/14/[address] [place], [place] [address] Michelle Montana, MODESTA Registered Nurse Urology 05/07/17 Anh Costa APRN VIDEO MACHINES MECHANIC Nurse Practitioner Nurse Practitioner 10/07 Martinez Galicia MD MD Ophthalmology 04/18/18 420 [place] [address] Sabino Romano DPM MD Podiatry 08/11/18 [facility] [address] [address] documented as of this encounter
--- OUTSIDE RECORDS SUMMARY | 2022-07-30 20:04 | XMS_ITS | Encounter Summary ---
:1945 Author Organization [place] Address [address] [place] [address]. [place] [address] Care Team Providers Name Role Phone Lisseth Vang MD Primary Care Provider Carlota Landeros MD Unavailable Lisseth Vang MD Unavailable Michelle Montana RN Unavailable Anh Costa APRN REGISTERED NURSE FLOAT POOL Unavailable Unavailable Martinez Galicai MD Unavailable Sabino Romano DPM Unavailable Encounter Details Date Type Department Care Team Description 06/01/2019 Office Visit [facility] Morgan Vang MD [address] [place] [address] Family history of colon cancer (Primary Dx); [facility], [address] [place] [address] Family history of uterine cancer; [address] [facility] Family history [place] [address] Social History Tobacco Use Types [...] questions or concerns. Cancer Risk Management Program [phone] ( ) ? Stephy Ambrosio MS, [facility] [phone] ? Dyllan Worley, MS [phone] ? Gisselle Jensen MS, [facility] [phone] ? Harriet Smyth, MS, [facility] [phone] ? Bradenijeoma Gupta, MS, [facility] [phone] ? Lisy Neff, MS, [facility] [phone] ? Annie Walters, MS, [facility] [phone] documented in this encounter Progress Notes Lisy Neff GC - 06/01/2019 12:30 PM CDT 06/01/2019 Referring Provider: Parul Salmeron APRN CNP Presenting Information: Yamileth Sheikh returned to the Cancer Risk Management Program at the [facility] to discussher genetic testing results. Her blood was drawn on 04/10/2019. BRCA1/2 and Knight Syndrome Analyses with the CancerNext panel was ordered from [facility]. This testing was done because of her [...] tab, dated 04/10/2019, and named SEND OUTS [facility] TEST. The report is scanned in as [...] uterine and ovarian cancer with their primary POWERHOUSE ATTENDANT provider, as they may have in dividualized recommendations. Other population cancer screening options, such as those recommended by the [employer] and NCCN, are also appropriate [...] I encouraged her to contact me at [phone]. Time spent face to face: 15 minutes Lisy Neff MS, [facility] Licensed Genetic Counselor Office: [phone] Pager: [phone] documented in this encounter Plan of Treatment Upcoming Encounters Date Type Specialty Care Team Description 09/10/2022 Office Visit Internal Medicine Margot Branham MD [address] [facility] [address] [place], [place] [address] (Wo rk) documented as of this encounter [...] 11/14/[address] [place], [place] [address] Carlota Landeros MD MD Urology 04/10/[address] [employer], [place] [address] Lisseth Vang MD PCP Family Practice 03/30/16 11/14/[address] [place], [place] [address] Michelle Montana, MODESTA Registered Nurse Urology 05/07/17 Anh Costa APRN REGISTERED NURSE FLOAT POOL Nurse Practitioner Nurse Practitioner 10/07 Martinez Galicia MD MD Ophthalmology 04/18/18 [address] [place] [address] Sabino Romano DPM MD Podiatry 08/11/[address] [place] [phone] documented as of this encounter
--- OUTSIDE RECORDS SUMMARY | 2022-07-30 20:04 | XMS_ITS | Encounter Summary ---
:1945 Author Organization [place] Address [address] [place] [address]. [place] [address] Care Team Providers Name Role Phone Lisseth Vang MD Primary Care Provider Carlota Landeros MD Unavailable Lisseth Vang MD Unavailable Michelle Montana RN Unavailable Anh Costa APRN PROGRAM AND RESEARCH COORDINATOR Unavailable Unavailable Martinez Galicia MD Unavailable [...] Visit Internal Medicine Margot Branham MD [address] [place] [address] (Wo rk) documented as of this encounter Visit Diagnoses Not on filedocumented in this encounter Additional Health Concerns Assessment Noted Time PHQ-9 Depression Total Score: 1 03/30/2018 7:10 AM CDT documented as of this encounter Care Teams Machine Hoop Maker Helper Relationship Specialty Start Date End Date Lisseth Vang MD PCP - General 04/13/16 11/14/[address] [place] [address] Carlota Landeros MD MD Urology 04/10/[address] [place], [place] [address] Lisseth Vang MD PCP Family Practice 03/30/16 11/14/[address] [place], [place] [address] Michelle Montana, MODESTA Registered Nurse Urology 05/07/17 Anh Costa APRN PROGRAM AND RESEARCH COORDINATOR Nurse Practitioner Nurse Practitioner 10/07 Martinez Galicia MD MD Ophthalmology 04/18/18 [address] [place] [address] Sabino Romano DPM MD Podiatry 08/11/18 [facility] [address] [address] documented as of this encounter
--- OUTSIDE RECORDS SUMMARY | 2022-07-30 20:04 | XMS_ITS | Encounter Summary ---
:1945 Author Organization [place] Address [address] [place] [address] Care Team Providers Name Role Phone Lisseth Vang MD Primary Care Provider Carlota Landeros MD Unavailable Lisseth Vang MD Unavailable Michelle Montana RN Unavailable Anh Costa APRN ELECTRIC WELDER Unavailable Unavailable Martinez Galicia MD Unavailable Sabino Romano DPM Unavailable Reason for Visit Reason Comments Medication Refill Encounter Details Date Type Department Care Team Description 06/09/2019 Refill [facility] Sabino Romano DPM Medication Refill [address] [phone] (Wo rk) Social [...] Office Visit Internal Medicine LogeaisMargot MD [address] [address] (Wo rk) documented as of this encounter Visit Diagnoses Diagnosis Dermatophytosis of nail documented in this encounter Additional Health Concerns Assessment Noted Time PHQ-9 Depression Total Score: 1 03/30/2018 7:10 AM CDT documented as of this encounter Care Teams Recoater Relationship Specialty Start Date End Date Lisseth Vang MD PCP - General 04/13/16 11/14/[address] [place], [place] [address] Carlota Landeros MD MD Urology 04/10/[address] [place], [place] [address] Lisseth Vang MD PCP Family Practice 03/30/16 11/14/[address] [place], [place] [address] Michelle Monatna, MODESTA Registered Nurse Urology 05/07/17 Anh Costa APRN ELECTRIC WELDER Nurse Practitioner Nurse Practitioner 10/07 Martinez Galicia MD MD Ophthalmology 04/18/18 420 [place] [address] Sabino Romano DPM MD Podiatry 08/11/[address] [place] [phone] documented as of this encounter
--- OUTSIDE RECORDS SUMMARY | 2022-07-30 20:04 | XMS_ITS | Encounter Summary ---
:1945 Author Organization [place] Address [address] [place] [address]. [place] [address] Care Team Providers Name Role Phone Lisseth Vang MD Primary Care Provider Carlota Landeros MD Unavailable Lisseth Vang MD Unavailable Michelle Montana RN Unavailable Anh Costa APRN LITURGICAL MUSIC DIRECTOR Unavailable Unavailable Martinez Galicia MD Unavailable Sabino Romano DPM Unavailable Reason for Visit Reason Onset Date Comments Clinic Care Coordination - Follow-up 07/12/2019 Encounter Details Date Type Department Care Team Description 07/12/2019 [facility] Lisy Neff C are [facility] [place] [facility] [address] [place] [phone] Social History Tobacco Use Types Packs/Day Years [...] name and phone number. Lisy Neff MS, [facility] Licensed Genetic Counselor Office: [phone] Pager: [phone] documented in this encounter Plan of Treatment Upcoming Encounters Date Type Specialty Care Team Description 09/10/2022 Office Visit Internal Medicine Margot Branham MD [address] [address] (Wo rk) documented as of this encounter Visit Diagnoses Not on filedocumented in this encounter Additional Health Concerns Assessment Noted Time PHQ-9 Depression Total Score: 1 03/30/2018 7:10 AM CDT documented as of this encounter Care Teams Precision Assembler Bench Relationship Specialty Start Date End Date Lisseth Vang MD PCP - General 04/13/16 11/14/[address] [place] [address] Carlota Landeros MD MD Urology 04/10/[address] [place], [place] [address] Lisseth Vang MD PCP Family Practice 03/30/16 11/14/[address] [place], [place] [address] Michelle Montana, MODESTA Registered Nurse Urology 05/07/17 Anh Costa APRN LITURGICAL MUSIC DIRECTOR Nurse Practitioner Nurse Practitioner 10/07 Martinez Galicia MD MD Ophthalmology 04/18/18 420 [place], [place] [address] Sabino Romano DPM MD Podiatry 08/11/18 [facility] [address] [phone] documented as of this encounter
--- OUTSIDE RECORDS SUMMARY | 2022-07-30 20:04 | XMS_ITS | Encounter Summary ---
:1945 Author Organization [place] Address [address] [place] [address]. [place] [address] Care Team Providers Name Role Phone Lisseth Vang MD Primary Care Provider Carlota Landeros MD Unavailable Lisseth Vang MD Unavailable Michelle Montana RN Unavailable Anh Costa APRN COAGULATING OPERATOR Unavailable Unavailable Martinez Galicia MD Unavailable Sabino Romano DPM Unavailable Reason for Visit Diagnostic Imaging Ultrasound (Routine) - Closed Specialty Diagnoses / Procedures Referred By Contact Refer red To Contact Diagnoses Other abnormal and inconclusive findings on diagnostic imaging of breast Left breast lump Lisseth Vang MD Procedures US Breast Left Limited 1-[address] [place], [place] [address] Referral ID Status Reason Start Date Expiration Date Visits Requ ested Visits Authorized [id number] Closed 08/17/2019 08/16/2020 1 1 Encounter Details Date Type Department Care Team Description 09/05/2019 Ancillary Procedure [facility], Other abnormal and inconclusive findings on diagnostic imaging of breast ; [facility] MD Lisseth Left breast lump 909 [facility] [address] [facility], [address] [place] [id number] Social History Tobacco Use Types Packs/Day Years [...] Office Visit Internal Medicine LogeaisMargot MD [address] [address] (Wo rk) documented as of this encounter Procedures Procedure Name Priority Date/Time Associated Diagnosis Comme nts US BREAST LEFT Routine 09/05/2019 3:16 PM Other abnormal and R esults for this LIMITED 1-3 IT APPLICATION DEVELOPMENT MANAGER inconclusive findings proced ure are in QUADRANTS on diagnostic imaging the re sults of breast section. Left breast lump documented in this encounter Results US Breast Left Limited 1-3 Quadrants (09/05/2019 3:16 PM IT APPLICATION DEVELOPMENT MANAGER) Anatomical Region Laterality Modality Breast Left Ultrasound Specimen (Source) Anatomical Location Collection Method / Collectio n Time Received Time / Laterality Volume Impressions 09/05/2019 3:33 PM IT APPLICATION DEVELOPMENT MANAGER IMPRESSION: BI-RADS CATEGORY: 1 - ??NEGATIVE. RECOMMENDED FOLLOW-UP: Annual Mammograph y. Clinical follow-up physician palpated ar ea of concern. ??Given lack of imaging findings in the left ??breast, m anagement would need to be based on clinical grounds. The patient was given the results of the examination. TYE MARTINEZ MD Narrative 09/05/2019 3:33 PM IT APPLICATION DEVELOPMENT MANAGER Examination: Bilateral digital diagnostic mammography and [...] MA Diagnostic Bilateral w/Win[place] (09/05/2019 3:16 PM IT APPLICATION DEVELOPMENT MANAGER) Anatomical Region Laterality Modality Breast Bilateral Mammography Specimen (Source) Anatomical Location Collection Method / Collectio n Time Received Time / Laterality Volume Impressions 09/05/2019 3:33 PM IT APPLICATION DEVELOPMENT MANAGER IMPRESSION: BI-RADS CATEGORY: 1 - ??NEGATIVE. RECOMMENDED FOLLOW-UP: Annual Mammograph y. Clinical follow-up physician palpated ar ea of concern. ??Given lack of imaging findings in the left ??breast, m anagement would need to be based on clinical grounds. The patient was given the results of the examination. TYE MARTINEZ MD Narrative 09/05/2019 3:33 PM IT APPLICATION DEVELOPMENT MANAGER Examination: Bilateral digital diagnostic mammography and [...] Depression Total Score: 0 08/17/2019 2:03 PM IT APPLICATION DEVELOPMENT MANAGER documented as of this encounter Care Teams Rod Tape Operator Relationship Specialty Start Date End Date Lisseth Vang MD PCP - General 04/13/16 11/14/[address] [place] [address] Carlota Landeros MD MD Urology 04/10/[address] [place], [place] [address] Lisseth Vang MD PCP Family Practice 03/30/16 11/14/19 [facility] [address] [address] Michelle Montana, RN Registered Nurse Urology 05/07/17 Anh Costa APRN COAGULATING OPERATOR Nurse Practitioner Nurse Practitioner 10/07 Martinez Galicia MD MD Ophthalmology 04/18/18 420 [place] [address] Sabino Romano DPM MD Podiatry 08/11/[address] [phone] documented as of this encounter
--- OUTSIDE RECORDS SUMMARY | 2022-07-30 20:04 | XMS_ITS | Encounter Summary ---
:1945 Author Organization [place] Address [address] [place] [address]. [place] [address] Care Team Providers Name Role Phone Lisseth Vang MD Primary Care Provider Carlota Landeros MD Unavailable Lisseth Vang MD Unavailable Michelle Montana RN Unavailable Anh Costa APRN FOOD SERVICE CLERK Unavailable Unavailable Martinez Galicia MD Unavailable [...] Visit Internal Medicine Margot Branham MD [address] [place] [address] (Wo rk) documented as of this encounter Visit Diagnoses Not on filedocumented in this encounter Additional Health Concerns Assessment Noted Time PHQ-9 Depression Total Score: 1 03/30/2018 7:10 AM CDT documented as of this encounter Care Teams Rn Hematology Relationship Specialty Start Date End Date Lisseth Vang MD PCP - General 04/13/16 11/14/[address] [place] [address] Carlota Landeros MD MD Urology 04/10/[address] [place], [place] [address] Lisseth Vang MD PCP Family Practice 03/30/16 11/14/[address] [place], [place] [phone] Michelle Montana, MODESTA Registered Nurse Urology 05/07/17 Anh Costa APRN FOOD SERVICE CLERK Nurse Practitioner Nurse Practitioner 10/07 Martinez Galicia MD MD Ophthalmology 04/18/18 420 [place] [address] Sabino Romano DPM MD Podiatry 08/11/18 [facility] [address] [phone] documented as of this encounter
--- OUTSIDE RECORDS SUMMARY | 2022-07-30 20:04 | XMS_ITS | Encounter Summary ---
:1945 Author Organization [place] Address [address] [place] [address]. [place] [address] Care Team Providers Name Role Phone Lisseth Vang MD Primary Care Provider Carlota Landeros MD Unavailable Lisseth Vang MD Unavailable Michelle Montana RN Unavailable Anh Costa APRN CREDIT MANAGER Unavailable Unavailable Martinez Galicia MD Unavailable Sabino Romano DPM Unavailable Encounter Details Date Type Department Care Team Description 07/11/2019 Telephone [facility] [place] [facility] Colon and Rectal laura Cooper , Surgery Parul Devlin APRN CREDIT MANAGER [address] [place], [place] [address] [place] [address] [phone] Social History Tobacco Use Types Packs/Day Years [...] AM CDT Received a phone call from [employer] insurance about patient's PA. Advised that this is not actually needed. Telephone Encounter - Priya Nava RN - 07/11/2019 3:16 PM CDT Pt contacted. Asked her to call to obtain PA form for Parul Ayala NP to complete for genetic testing. FAx number provided. Telephone Encounter - Yaakov Miller - 07/11/2019 2:38 PM CDT [facility] [place] [facility] Call Center Phone Message May a detailed [...] Visit Internal Medicine Margot Branham MD [address] [place] [address] (Wo rk) documented as of this encounter Visit Diagnoses Not on filedocumented in this encounter Additional Health Concerns Assessment Noted Time PHQ-9 Depression Total Score: 1 03/30/2018 7:10 AM CDT documented as of this encounter Care Teams Central Office Repairer Relationship Specialty Start Date End Date Lisseth Vang MD PCP - General 04/13/16 11/14/[address] [place], [place] [address] Carlota Landeros MD MD Urology 04/10/[address] [place], [place] [address] Lisseth Vang MD PCP Family Practice 03/30/16 11/14/19 [address] [address] Michelle Montana, RN Registered Nurse Urology 05/07/17 Anh Costa APRN CREDIT MANAGER Nurse Practitioner Nurse Practitioner 10/07 Martinez Galicia MD MD Ophthalmology 04/18/18 420 [place] [address] Sabino Romano DPM MD Podiatry 08/11/[address] [place] [phone] documented as of this encounter
--- OUTSIDE RECORDS SUMMARY | 2022-07-30 20:04 | XMS_ITS | Encounter Summary ---
:1945 Author Organization [place] Address [address] [place] [address]. [place] [address] Care Team Providers Name Role Phone Lisseth Vang MD Primary Care Provider Carlota Landeros MD Unavailable Lisseth Vang MD Unavailable Michelle Montana RN Unavailable Anh Costa APRN ASSEMBLER MUSICAL EQUIPMENT Unavailable Unavailable Martinez Galicia MD Unavailable Sabino [...] Visit Internal Medicine Margot Branham MD [address] [place] [address] (Wo rk) documented as of this encounter Visit Diagnoses Not on filedocumented in this encounter Additional Health Concerns Assessment Noted Time PHQ-9 Depression Total Score: 1 03/30/2018 7:10 AM CDT documented as of this encounter Care Teams Home Economics Extension Worker Relationship Specialty Start Date End Date Lisseth Vang MD PCP - General 04/13/16 11/14/[address] [place] [address] Carlota Landeros MD MD Urology 04/10/[address] [place], [place] [address] Lisseth Vang MD PCP Family Practice 03/30/16 11/14/[address] [place], [place] [phone] Michelle Montana, MODESTA Registered Nurse Urology 05/07/17 Anh Costa APRN ASSEMBLER MUSICAL EQUIPMENT Nurse Practitioner Nurse Practitioner 10/07 Martinez Galicia MD MD Ophthalmology 04/18/18 420 [place] [address] Sabino Romano DPM MD Podiatry 08/11/[address] [facility] [address] [phone] documented as of this encounter
--- OUTSIDE RECORDS SUMMARY | 2022-07-30 20:04 | XMS_ITS | Encounter Summary ---
:1945 Author Organization [place] Address [address] [place] [address]. [place] [address] Care Team Providers Name Role Phone Lisseth Vang MD Primary Care Provider Carlota Landeros MD Unavailable Lisseth Vang MD Unavailable Michelle Montana RN Unavailable Anh Costa APRN THREE DIMENSIONAL MAP MODELER Unavailable Unavailable Martinez Galicia MD Unavailable Sabino Romano DPM Unavailable Reason for Visit Reason Comments Medication Refill Encounter Details Date Type Department Care Team Description 11/06/[address] [facility] Yasmine Vang, Medication Refill Clinic [facility] PROFESSION AL BLDG [address] [place], [place] [address] [address] [facility] 88 [place], [place] [address] [phone] Social History Tobacco Use Types Packs/Day Years [...] and was advised tocontinue. Rx sent under BEADER Jena Schwarz. UCT GRADER documented in this encounter Plan of Treatment Upcoming Encounters Date Type Specialty Care Team Description 09/10/2022 Office Visit Internal Medicine Margot Branham MD [address] [place] [address] (Wo rk) documented as of this encounter Visit Diagnoses Diagnosis Vaginal dryness Other specified symptom associated with female genital organs Atrophic vaginitis Postmenopausal atrophic vaginitis documented in this encounter Additional Health Concerns Assessment Noted Time PHQ-9 Depression Total Score: 0 08/17/2019 2:03 PM PRODUCT GRADER documented as of this encounter Care Teams Director Microbiology Relationship Specialty Start Date End Date Lisseth Vang MD PCP - General 04/13/16 11/14/[address] [place], [place] [address] Carlota Landeros MD MD Urology 04/10/[address] [place], [place] [phone] Lisseth Vang MD PCP Family Practice 03/30/16 11/14/[address] [place], [place] [phone] Michelle Montana, MODESTA Registered Nurse Urology 05/07/17 Anh Costa APRN THREE DIMENSIONAL MAP MODELER Nurse Practitioner Nurse Practitioner 10/07 Martinez Galicia MD MD Ophthalmology 04/18/18 420 [place], [place] [phone] Sabino Romano DPM MD Podiatry 08/11/[address] [place] [phone] documented as of this encounter
--- OUTSIDE RECORDS SUMMARY | 2022-07-30 20:04 | XMS_ITS | Encounter Summary ---
:1945 Author Organization [place] Address [address] [place] [address]. [place] [address] Care Team Providers Name Role Phone Lisseth Vang MD Primary Care Provider Carlota Landeros MD Unavailable Lisseth Vang MD Unavailable Michelle Montana RN Unavailable Anh Costa APRN SUPERVISOR MAPPING Unavailable Unavailable Martinez Galicia MD Unavailable Sabino [...] Visit Internal Medicine Margot Branham MD [address] [place] [address] (Wo rk) documented as of this encounter Visit Diagnoses Not on filedocumented in this encounter Additional Health Concerns Assessment Noted Time PHQ-9 Depression Total Score: 1 03/30/2018 7:10 AM CDT documented as of this encounter Care Teams Video Editing Internship Relationship Specialty Start Date End Date Lisseth Vang MD PCP - General 04/13/16 11/14/[address] [place] [address] Carlota Landeros MD MD Urology 04/10/[address] [place], [place] [address] Lisseth Vang MD PCP Family Practice 03/30/16 11/14/[address] [place], [place] [phone] Michelle Montana, MODESTA Registered Nurse Urology 05/07/17 Anh Costa APRN SUPERVISOR MAPPING Nurse Practitioner Nurse Practitioner 10/07 Martinez Galicia MD MD Ophthalmology 04/18/18 420 [place] [address] Sabino Romano DPM MD Podiatry 08/11/18 [facility] [address] [phone] documented as of this encounter
--- OUTSIDE RECORDS SUMMARY | 2022-07-30 20:04 | XMS_ITS | Encounter Summary ---
:1945 Author Organization [place] Address [address] [place] [address]. [place] [address] Care Team Providers Name Role Phone Lisseth Vang MD Primary Care Provider Cralota Landeros MD Unavailable Lisseth Vagn MD Unavailable Michelle Montana RN Unavailable Anh Costa APRN NATIONAL GUARD MEMBER Unavailable Unavailable Martinez Galicia MD Unavailable Sabino Romano DPM Unavailable Encounter Details Date Type Department Care Team Description 04/11/2019 Orders Only [facility] Hyperlipidemia, unspecified [address] [place] [address] hyperlipidemia type 1st [place] [address] Social History Tobacco Use Types [...] 09/10/2022 Office Visit Internal Medicine LogeaisMargot MD [address] [place] [address] (Wo rk) documented as of this encounter Procedures Procedure Name Priority Date/Time Associated Diagnosis Comme nts LIPOFIT BY NMR Routine 04/11/2019 8:45 AM Hyperlipidemia, Resu lts for this CDT unspecified procedure are i n hyperlipidemia type the resu lts section. documented in this encounter Results (ABNORMAL) LipoFit by NMR (04/11/2019 8:45 AM CDT) [facility] Method Time Signature Total Cholesterol 136 <=199 04/14/2019 [facility] mg/dL 7:17 PM CDT [facility] Triglycerides 65 30 - 149 04/14/2019 [facility] mg/dL 7:17 PM CDT [facility] HDL Cholesterol 75 (H) 40 - 59 04/14/2019 [facility] mg/dL 7:17 PM CDT [facility] LDL Cholesterol 48 <=129 04/14/2019 [facility] mg/dL 7:17 PM T [facility] HDL Size 10.0 >=8.9 nm 04/14/2019 [facility] 7:17 PM CDT [facility] Comment: (Note) INTERPRETIVE INFORMATION: HDL Particle S ize, NMR Percentiles in Reference Population: 25th ? 50th ? 75th 8.6 ?8.9 ?9.3 VLDL Size 52.2 (H) <=46.7 nm 04/14/2019 7:17 PM CDT [facility] Comment: (Note) INTERPRETIVE INFORMATION: VLDL Particle Size, NMR Percentiles in Reference Population: 25th ? 50th ? 75th 44.3 ? 46.7 ? 50.2 LDL Particle Size 21.5 >=20.7 nm 04/14/2019 7:17 PM CDT [facility] Comment: (Note) INTERPRETIVE INFORMATION: LDL Particle S ize, NMR Percentiles in Reference Population: 25th ? 50th ? 75th 19.6 ? 20.7 ? 22.5 Lge HDL Particle 12.3 >=4.2 umol/L 04/14/2019 7:17 PM C [facility] Comment: (Note) INTERPRETIVE INFORMATION: Large HDL Part icle Number, NMR Percentiles in Reference Population: 25th ? 50th ? 75th 2.0 ?4.2 ?7.3 HDL Particle 30.2 (L) >=33.0 umol/L 04/14/2019 7:17 PM [facility] Comment: (Note) INTERPRETIVE INFORMATION: HDL Particle N umber, NMR Percentiles in Reference Population: 25th ? 50th ? 75th 29.7 ? 33.0 ? 36.8 Lge VLDL Part <1.5 <=2.7 nmol/L 04/14/2019 7:[address] [facility] Comment: (Note) INTERPRETIVE INFORMATION: Large VLDL Par ticle Number, NMR Percentiles in Reference Population: 25th ? 50th ? 75th 0.9 ?2.7 ?7.0 Small LDL Particle <165 <=634 nmol/L 04/14/2019 7:[address] [facility] Comment: (Note) INTERPRETIVE INFORMATION: Small LDL Part icle Number, NMR Percentiles in Reference Population: 25th ? 50th ? 75th 220 ?634 ?949 LDL Particle number 609 <=1,135 nmol/L 04/14/2019 7:17 PM [facility] Comment: (Note) REFERENCE INTERVAL: LDL Particle Number, [...] SEE NOTE 04/14/2019 7:17 PM CD T [facility] Comment: (Note) Access Extended Systems Report using either link below: -Direct access: [email or web address] -Enter Username, Password: [email or web address] Username: [email or web address] Password: [email or web address] INTERPRETIVE INFORMATION: LipoFit by NMR See Compliance Statement B: [employer]/ CS Performed by [facility], [address] [place] [id number] [email or web address], Valeriano Rich MD, Lab. Director Specimen Anatomical Collection Method Collection Time Receive d Time (Source) Location / / Volume Laterality Blood specimen 04/11/2019 8:45 AM 019 8:46 (specimen) CDT AM CDT Anh Costa APRN NATIONAL GUARD MEMBER LAB - BLOOD ORDERABLES Performing Organization Address City/State/ZIP Code Phon e Number [address] [address] [facility] documented in this encounter Visit Diagnoses Diagnosis Hyperlipidemia, unspecified hyperlipidem ia type documented in this encounter Additional Health Concerns Assessment Noted Time PHQ-9 Depression Total Score: 1 03/30/2018 7:10 AM CDT documented as of this encounter Care Teams Principal Technologist Relationship Specialty Start Date End Date Lisseth Vang MD PCP - General 04/13/16 11/14/[address] [place] [address] Carlota Landeros MD MD Urology 04/10/[address] [place], [place] [address] Lisseth Vang MD PCP Family Practice 03/30/16 11/14/19 [facility] [address] [address] Michelle Montana, MODESTA Registered Nurse Urology 05/07/17 Anh Costa APRN NATIONAL GUARD MEMBER Nurse Practitioner Nurse Practitioner 10/07 Martinez Galicia MD MD Ophthalmology 04/18/18 420 [place] [address] Sabino Romano DPM MD Podiatry 08/11/[address] [place] [phone] documented as of this encounter
--- OUTSIDE RECORDS SUMMARY | 2022-07-30 20:04 | XMS_ITS | Encounter Summary ---
:1945 Author Organization [place] Address [address] [place] [address]. [place] [address] Care Team Providers Name Role Phone Lisseth Vang MD Primary Care Provider Carlota Landeros MD Unavailable Lisseth Vang MD Unavailable Michelle Montana RN Unavailable Anh Costa APRN WASH RACK OPERATOR Unavailable Unavailable Martinez Galicia MD Unavailable [...] Office Visit Internal Medicine Margot Branham MD [address] [place] [address] (Wo rk) documented as of this encounter Visit Diagnoses Not on filedocumented in this encounter Additional Health Concerns Assessment Noted Time PHQ-9 Depression Total Score: 1 03/30/2018 7:10 AM CDT documented as of this encounter Care Teams Apron Man Relationship Specialty Start Date End Date Lisseth Vang MD PCP - General 04/13/16 11/14/[address] [place] [address] Carlota Landeros MD MD Urology 04/10/[address] [place], [place] [address] Lisseth Vang MD PCP Family Practice 03/30/16 11/14/[address] [place], [place] [phone] Michelle Montana, MODESTA Registered Nurse Urology 05/07/17 Anh Costa APRN WASH RACK OPERATOR Nurse Practitioner Nurse Practitioner 10/07 Martinez Galicia MD MD Ophthalmology 04/18/18 420 [place] [address] Sabino Romano DPM MD Podiatry 08/11/[address] [facility] [address] [phone] documented as of this encounter
--- OUTSIDE RECORDS SUMMARY | 2022-07-30 20:04 | XMS_ITS | Encounter Summary ---
:1945 Author Organization [place] Address [address] [place] [address]. [place] [address] Care Team Providers Name Role Phone Lisseth Vang MD Primary Care Provider Carlota Landeros MD Unavailable Lisseth Vang MD Unavailable Michelle Montana RN Unavailable Anh Costa APRN ASBESTOS HANDLER Unavailable Unavailable Martinez Galicia MD Unavailable Sabino Romano DPM Unavailable Reason for Visit Reason Onset Date Comments Clinic Care Coordination - Follow-up 07/12/2019 Encounter Details Date Type Department Care Team Description 07/12/2019 [facility] Lisy Neff C [facility] [address] [place] [address] [id number] Social History Tobacco Use Types Packs/Day Years [...] explained that I spoke with Mary in [facility] billing department, who clarified that an official pre-authorization request and any necessary appeals will be submitted by [facility]. We again reviewed [facility]'s pre- verification/billing policy regarding OOP cost estimates and the need for pa tient approval if the estimate is over $100. Yamileth explained that she never received a phone call from [facility] regarding OOP costs. As such, Yamileth is encouraged to contact me if she receives a bill from [facility] that she is uncomfortable paying, as the laboratory may have additional information and/or financial assistance to offer Yamileth. Yamileth was pleased to hear this information and denied having any other questions at this time. Lisy Neff MS, [facility] Licensed Genetic Counselor Office: [phone] Pager: [phone] documented in this encounter Plan of Treatment Upcoming Encounters Date Type Specialty Care Team Description 09/10/2022 Office Visit Internal Medicine Margot Branham MD [address] [place] [address] [id number] (Wo rk) documented as of this encounter Visit Diagnoses Not on filedocumented in this encounter Additional Health Concerns Assessment Noted Time PHQ-9 Depression Total Score: 1 03/30/2018 7:10 AM CDT documented as of this encounter Care Teams Mandarin Speaking Nanny Relationship Specialty Start Date End Date Lisseth Vang MD PCP - General 04/13/16 11/14/[address] [place], [place] [address] Carltoa Landeros MD MD Urology 04/10/[address] [place], [place] [address] Lisseth Vang MD PCP Family Practice 03/30/16 11/14/[address] [address] Michelle Montana, RN Registered Nurse Urology 05/07/17 Anh Costa APRN ASBESTOS HANDLER Nurse Practitioner Nurse Practitioner 10/07 Martinez Galicia MD MD Ophthalmology 04/18/18 420 [place] [address] Sabino Romano DPM MD Podiatry 08/11/[address] [place] [address] [phone] documented as of this encounter
--- OUTSIDE RECORDS SUMMARY | 2022-07-30 20:04 | XMS_ITS | Encounter Summary ---
:1945 Author Organization [place] Address [address] [place] [address]. [place] [address] Care Team Providers Name Role Phone Lisseth Vang MD Primary Care Provider Carltoa Landeros MD Unavailable Lisseth Vang MD Unavailable Michelle Montana RN Unavailable Anh Costa APRN ENGLISH LECTURER Unavailable Unavailable Martinez Galicia MD Unavailable Sabino Romano DPM Unavailable Reason for Visit Reason Comments Floaters Right Eye Encounter Details Date Type Department Care Team Description 07/24/2019 Office Visit [facility] Ken Rick MD [address] [place] [address] [facility] [place] Kign Baptiste MD [address] [facility] 493 [place] [address] degeneration, right - aNkul priest (Primary Building Dx) 516 [facility] 9th Dc Clin 9A [place] [address] Social History Tobacco Use Types [...] weeks ago - No tear/detachment on 360 SONG WRITER each eye - RD/RT precautions discussed - [...] Visit Internal Medicine Margot Branham MD [address] [place] [address] [phone] (Wo rk) documented as of this encounter Visit Diagnoses Diagnosis Vitreous degeneration, right - Right Eye - Primary documented in this encounter Additional Health Concerns Assessment Noted Time PHQ-9 Depression Total Score: 1 03/30/2018 7:10 AM CDT documented as of this encounter Care Teams Global Marketing Manager Relationship Specialty Start Date End Date Lisseth Vang MD PCP - General 04/13/16 11/14/[address] [place] [address] Carlota Landeros MD MD Urology 04/10/[address] [place] [address] Lisseth Vang MD PCP Family Practice 03/30/16 11/14/[address] [place] [address] Michelle Montana, MODESTA Registered Nurse Urology 05/07/17 Anh Costa APRN ENGLISH LECTURER Nurse Practitioner Nurse Practitioner 10/07 Martinez Galicia MD MD Ophthalmology 04/18/18 420 [place] [address] Sabino Romano DPM MD Podiatry 08/11/[address] [place] [phone] documented as of this encounter
--- OUTSIDE RECORDS SUMMARY | 2022-07-30 20:04 | XMS_ITS | Encounter Summary ---
:1945 Author Organization [place] Address [address] [place] [address]. [place] [address] Care Team Providers Name Role Phone Lisseth Vang MD Primary Care Provider Carlota Landeros MD Unavailable Lisseth Vang MD Unavailable Michelle Montana RN Unavailable Anh Costa APRN SENIOR TELECOMMUNICATIONS ENGINEER Unavailable Unavailable Martinez Galicia MD Unavailable [...] Office Visit Internal Medicine Margot Branham MD [address] [place] [address] (Wo rk) documented as of this encounter Visit Diagnoses Not on filedocumented in this encounter Additional Health Concerns Assessment Noted Time PHQ-9 Depression Total Score: 1 03/30/2018 7:10 AM CDT documented as of this encounter Care Teams Tank Builder Helper Relationship Specialty Start Date End Date Lisseth Vang MD PCP - General 04/13/16 11/14/[address] [place] [address] Carlota Landeros MD MD Urology 04/10/[address] [place], [place] [address] Lisseth Vang MD PCP Family Practice 03/30/16 11/14/[address] [place], [place] [phone] Michelle Montana, MODESTA Registered Nurse Urology 05/07/17 Anh Costa APRN SENIOR TELECOMMUNICATIONS ENGINEER Nurse Practitioner Nurse Practitioner 10/07 Martinez Galicia MD MD Ophthalmology 04/18/18 420 [place] [address] Sabino Romano DPM MD Podiatry 08/11/[address] [facility] [address] [address] documented as of this encounter
--- OUTSIDE RECORDS SUMMARY | 2022-07-30 20:04 | XMS_ITS | Encounter Summary ---
:1945 Author Organization [place] Address [address] [place] [address]. [place] [address] Care Team Providers Name Role Phone Lisseth Vang MD Primary Care Provider Carlota Landeros MD Unavailable Lisseth Vang MD Unavailable Michelle Montana RN Unavailable Anh Costa APRN MAINTENANCE MECHANIC Unavailable Unavailable Martinez Galicia MD Unavailable Sabino Romano DPM Unavailable Encounter Details Date Type Department Care Team Description 07/11/2019 Telephone [facility] Lisy Guillermo, Cancer Clinic [address] [phone] [place] [address] Social History Tobacco Use Types [...] - 07/11/2019 2:54 PM CDT April, [employer] wants PA form filled out. Pt # [id number] Group 3000 Call [phone] - [employer] Phone number Please call Ramona that this was as the bill over $2,000 documented in this encounter Plan of Treatment Upcoming Encounters Date Type Specialty Care Team Description 09/10/2022 Office Visit Internal Medicine Margot Branham MD 909 [facility] 4TH [place], [place] [address] (Wo rk) documented as of this encounter Visit Diagnoses Not on filedocumented in this encounter Additional Health Concerns Assessment Noted Time PHQ-9 Depression Total Score: 1 03/30/2018 7:10 AM CDT documented as of this encounter Care Teams Special Procedures Nurse Relationship Specialty Start Date End Date Lisseth Vang MD PCP - General 04/13/16 11/14/[address] [place], [place] [address] Carlota Landeros MD MD Urology 04/10/[address] [place], [place] [address] Lisseth Vang MD PCP Family Practice 03/30/16 11/14/[address] [place], [place] [address] Michelle Montana, RN Registered Nurse Urology 05/07/17 Anh Costa APRN MAINTENANCE MECHANIC Nurse Practitioner Nurse Practitioner 10/07 Martinez Galicia MD MD Ophthalmology 04/18/18 420 [place], [place] [address] Sabino Romano DPM MD Podiatry 08/11/[address] [place] [address] [phone] documented as of this encounter
--- OUTSIDE RECORDS SUMMARY | 2022-07-30 20:04 | XMS_ITS | Encounter Summary ---
:1945 Author Organization [place] Address [address] [place] [address]. [place] [address] Care Team Providers Name Role Phone Lisseth Vang MD Primary Care Provider Carlota Landeros MD Unavailable Lisseth Vang MD Unavailable Michelle Montana RN Unavailable Anh Costa APRN DESIGN ENGINEER MARINE EQUIPMENT Unavailable Unavailable Martinez Galicia MD Unavailable [...] Visit Internal Medicine Margot Branham MD [address] [place] [address] (Wo rk) documented as of this encounter Visit Diagnoses Not on filedocumented in this encounter Additional Health Concerns Assessment Noted Time PHQ-9 Depression Total Score: 0 08/17/2019 2:03 PM INSIDE TESTER documented as of this encounter Care Teams Machine Bookkeeper Relationship Specialty Start Date End Date Lisseth Vang MD PCP - General 04/13/16 11/14/[address] [place] [address] Carlota Landeros MD MD Urology 04/10/[address] [place], [place] [address] Lisseth Vang MD PCP Family Practice 03/30/16 11/14/[address] [place] [address] Michelle Montana, MODESTA Registered Nurse Urology 05/07/17 Anh Costa APRN DESIGN ENGINEER MARINE EQUIPMENT Nurse Practitioner Nurse Practitioner 10/07 Martinez Galicia MD MD Ophthalmology 04/18/18 420 [place] [address] aSbino Romano DPM MD Podiatry 08/11/[address] [phone] documented as of this encounter
--- OUTSIDE RECORDS SUMMARY | 2022-07-30 20:04 | XMS_ITS | Encounter Summary ---
:1945 Author Organization [place] Address [address] [place] [address]. [place] [address] Care Team Providers Name Role Phone Lisseth Vang MD Primary Care Provider Carlota Landeros MD Unavailable Lisseth Vang MD Unavailable Michelle Montana RN Unavailable Anh Costa APRN HVAC INSTALLATION TECHNICIAN Unavailable Unavailable Martinez Galicia MD Unavailable Sabino Romano DPM Unavailable Reason for Visit Reason Comments Follow Up Encounter Details Date Type Department Care Team Description 09/20/2019 Office Visit [facility] Martinez Galicia Vitre ous degeneration, right - Right Eye (Primary Dx); Clinic - Latoya Pearson MD Vitreous floater, right; Nakul Linderteen [address] Vitreous strand, right; [place], [place] Vitreous degeneration, right [address] [facility] [address] 9th [address] Clin 9A [phone] [place], [place] (Work) [address] [phone] Social History Tobacco Use Types Packs/Day Years [...] the entire procedure. - Martinez Galicia MD TANK LAMINATOR documented in this encounter Nursing Shila Pb [...] Sebastien COT 12:24 PM September 20, 2019 TANK LAMINATOR documented in this encounter Plan of Treatment Upcoming Encounters Date Type Specialty Care Team Description 09/10/2022 Office Visit Internal Medicine LogeaMargot man MD [address] [place] [address] [phone] (Wo rk) documented as of this encounter Procedures Procedure Name Priority Date/Time Associated Diagnosis Comme nts HC SEVERING Routine 09/20/2019 1:16 PM Vitreous Results f or this VITREOUS STRANDS, FOAM TANK LAMINATOR degeneration, right procedure are in LASER Vitreous strand, the results right section. documented in this encounter Results SEVERING VITREOUS STRANDS, LASER (09/20/2019 1:16 PM FOAM TANK LAMINATOR) Narrative Martinez Galicia MD - 09/20/2019 1: 16 PM FOAM TANK LAMINATOR Brief Operative Note: Date of Service: September 20, 2019 Attending: Martinez aGlicia M.D. Physical Security Engineer: none Preoperative diagnosis: Vitreous strands , right [...] for the entire procedure Martinez Galicia MD Lead Sustainability Specialist, Comprehensive Ophth almology Department of Ophthalmology and Visual N eurosciences [facility] ?? Martinez Galicia MD PROCEDURES documented in this encounter Visit Diagnoses Diagnosis Vitreous degeneration, right - Primary Vitreous degeneration, right - Right Eye Vitreous floater, right Vitreous strand, right documented in this encounter Additional Health Concerns Assessment Noted Time PHQ-9 Depression Total Score: 0 08/17/2019 2:03 PM FOAM TANK LAMINATOR documented as of this encounter Care Teams Tool Salvage Worker Relationship Specialty Start Date End Date Lisseth Vang MD PCP - General 04/13/16 11/14/[address] [place], [place] [address] Carlota Landeros MD MD Urology 04/10/[address] [place], [place] [address] Lisseth Vang MD PCP Family Practice 03/30/16 11/14/[address] [place], [place] [address] Michelle Montana, MODESTA Registered Nurse Urology 05/07/17 Anh Costa APRN HVAC INSTALLATION TECHNICIAN Nurse Practitioner Nurse Practitioner 10/07 Martinez Galicia MD MD Ophthalmology 04/18/[address] [place] [address] Sabino Romano DPM MD Podiatry 08/11/[address] [place] [address] [phone] documented as of this encounter
--- OUTSIDE RECORDS SUMMARY | 2022-07-30 20:04 | XMS_ITS | Encounter Summary ---
:1945 Author Organization [place] Address [address] [place] [address]. [place] [address] Care Team Providers Name Role Phone Lisseth Vang MD Primary Care Provider Carlota Landeros MD Unavailable Lisseth Vang MD Unavailable Michelle Montana RN Unavailable Anh Costa APRN ROVING INSPECTOR Unavailable Unavailable Martinez Galicia MD Unavailable Sabino Romano DPM Unavailable Encounter Details Date Type Department Care Team Description 10/11/2019 [facility] Eye [facility] Martinez Guzman MD [phone] [place] [address] 516 [facility] [address] [phone] Social History Tobacco Use [...] Office Visit Internal Medicine LogeaisMargot MD [address] [address] (Wo rk) documented as of this encounter Visit Diagnoses Not on filedocumented in this encounter Additional Health Concerns Assessment Noted Time PHQ-9 Depression Total Score: 0 08/17/2019 2:03 PM TRAINING AND DEVELOPMENT OFFICER documented as of this encounter Care Teams Matchbook Maker Relationship Specialty Start Date End Date Lisseth Vang MD PCP - General 04/13/16 11/14/[address] [place], [place] [address] Carlota Landeros MD MD Urology 04/10/[address] [place], [place] [address] Lisseth Vang MD PCP Family Practice 03/30/16 11/14/[address] [place], [place] [address] Michelle Montana, MODESTA Registered Nurse Urology 05/07/17 Anh Costa APRN ROVING INSPECTOR Nurse Practitioner Nurse Practitioner 10/07 Martinez Galicia MD MD Ophthalmology 04/18/[address] [place] [address] Sabino Romano DPM MD Podiatry 08/11/[address] [place] [address] [phone] documented as of this encounter
--- OUTSIDE RECORDS SUMMARY | 2022-07-30 20:04 | XMS_ITS | Encounter Summary ---
:1945 Author Organization [place] Address [address] [place] [address]. [place] [address] Care Team Providers Name Role Phone Lisseth Vang MD Primary Care Provider Carlota Landeros MD Unavailable Lisseth Vang MD Unavailable Michelle Montana RN Unavailable Anh Costa APRN CERTIFIED PROFESSIONAL CODER Unavailable Unavailable Martinez Galicia MD Unavailable Sabino Romano DPM Unavailable Encounter Details Date Type Department Care Team Description 08/14/2019 [facility] Only [facility] Eye Martinez Galicia ' endothelial Clinic - Latoya Pearson MD dystrophy - Both Eyes Mota Wangensteen [address] [facility] (Primary Dx) [address] [place] [address] Social History Tobacco Use Types [...] Office Visit Internal Medicine LogeaisMargot MD [address] [facility] [address] [place], [place] [address] (Wo rk) documented as of this encounter Visit Diagnoses 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 documented in this encounter Additional Health Concerns Assessment Noted Time PHQ-9 Depression Total Score: 1 03/30/2018 7:10 AM CDT documented as of this encounter Care Teams Cancer Genetics Assistant Relationship Specialty Start Date End Date Lisseth Vang MD PCP - General 04/13/16 11/14/[address] [place], [place] [address] Carlota Landeros MD MD Urology 04/10/[address] [place] [address] Lisseth Vang MD PCP Family Practice 03/30/16 11/14/[address] [place], [place] [address] Michelle Montana, RN Registered Nurse Urology 05/07/17 Anh Costa APRN CERTIFIED PROFESSIONAL CODER Nurse Practitioner Nurse Practitioner 10/07 Martinez Galicia MD MD Ophthalmology 04/18/18 420 [place], [place] [address] Sabino Romano DPM MD Podiatry 08/11/[address] [place] [address] [phone] documented as of this encounter
--- OUTSIDE RECORDS SUMMARY | 2022-07-30 20:04 | XMS_ITS | Encounter Summary ---
:1945 Author Organization [place] Address [address] [place] [address]. [place] [address] Care Team Providers Name Role Phone Lisseth Vang MD Primary Care Provider Carlota Landeros MD Unavailable Lisseth Vang MD Unavailable Michelle Montana RN Unavailable Anh Costa APRN SWITCH TECHNICIAN Unavailable Unavailable Martinez Galicia MD Unavailable Sabino Romano DPM Unavailable Reason for Visit Reason Onset Date Comments Appointment 04/25/2019 Pt calling asking fo r an appointment when the [employer] rep is in with her. 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 Please r eturn call. Encounter Details Date Type Department Care Team Description 04/25/2019 Telephone [facility] Urology and Carlota Landeros A ppointment (Pt Inst for Prostate and calling asking for an Urologic [place] [address] appointment when the [address] [place] [address] [address] [employer] rep is in [address] Floor [place], [place]. [place] [address] issues [place] her [address] [employer] lead programmer. [phone] Please re turn call. 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 Please return call. Action Taken: Message routed to: [facility] uc uro documented in this encounter Plan of Treatment Upcoming Encounters Date Type Specialty Care Team Description 09/10/2022 Office Visit Internal Medicine Logeais, MD Margot [address] [phone] (Wo rk) documented as of this encounter Visit Diagnoses Not on filedocumented in this encounter Additional Health Concerns Assessment Noted Time PHQ-9 Depression Total Score: 1 03/30/2018 7:10 AM CDT documented as of this encounter Care Teams Fructose Loader Relationship Specialty Start Date End Date Lisseth Vang MD PCP - General 04/13/16 11/14/[address] [place], [place] [address] Carlota Landeros MD MD Urology 04/10/[address] [place], [place] [address] Lisseth Vang MD PCP Family Practice 03/30/16 11/14/[address] [place], [place] [phone] Michelle Montana RN Registered Nurse Urology 05/07/17 Anh Costa APRN SWITCH TECHNICIAN Nurse Practitioner Nurse Practitioner 10/07 Martinez Galicia MD MD Ophthalmology 04/18/18 420 [place] [address] Sabino Romano DPM MD Podiatry 08/11/[address] [place] [phone] documented as of this encounter
--- OUTSIDE RECORDS SUMMARY | 2022-07-30 20:04 | XMS_ITS | Encounter Summary ---
:1945 Author Organization [place] Address [address] [place] [address]. [place] [address] Care Team Providers Name Role Phone Lisseth Vang MD Primary Care Provider Carlota Landeros MD Unavailable Lisseth Vang MD Unavailable Michelle Montana RN Unavailable Anh Costa APRN SERICULTURIST Unavailable Unavailable Martinez Galicia MD Unavailable Sabino Romano DPM Unavailable Reason for Visit Reason Onset Date Comments Appointment 06/29/2019 Pt needs hemorrhoid banding Call Back 06/29/2019 Pt called back and i s wanting to reschdule 07/07 to 07/12 if possible Encounter Details Date Type Department Care Team Description 06/29/2019 Telephone [facility] Nam and Mignon Salmeron (Pt needs Rectal Surgery Parul Devlin APRN hemorrhoid banding); [address] [facility] [address] SERICULTURIST Call Back (Pt called 4th Floor [address] [facility] back and is wanting to [place] [address] reschdule 07/07 to 07/12 [address] [place], [place] if possible ) [phone] (Wo rk) Social History Tobacco Use Types [...] thank you Action Taken: Message routed to: [facility] ([facility]): Colon Rect Surg Telephone Encounter - Priya Nava RN - 06/29/2019 3:57 PM CDT Contacted pt. Scheduled appt for 07/07 at 9:30 am Telephone Encounter - Mary Butler - 06/29/2019 3:34 PM CDT [facility] Call Center Phone Message May a detailed message be left on voicemail: yes Reason for Call: Other: Pt calling in to be scheduled from her symptoms of hemorrhoid. Pt stated that she is needing an appointment as soon as possible. Manager Enrollment did offer provides first available appointment of 07/07, but pt declined and wanted a message sent to provider. Please advise Action Taken: Message routed to: [facility] ([facility]): Colon RectSurg documented in this encounter Plan of Treatment Upcoming Encounters Date Type Specialty Care Team Description 09/10/2022 Office Visit Internal Medicine Margot Branham MD 909 [facility] 4TH [place], [place] [phone] (Wo rk) documented as of this encounter Visit Diagnoses Not on filedocumented in this encounter Additional Health Concerns Assessment Noted Time PHQ-9 Depression Total Score: 1 03/30/2018 7:10 AM CDT documented as of this encounter Care Teams Beef Pluck Trimmer Relationship Specialty Start Date End Date Lisseth Vang MD PCP - General 04/13/16 11/14/[address] [place], [place] [address] Carlota Landeros MD MD Urology 04/10/[address] [place], [place] [address] Lisseth Vang MD PCP Family Practice 03/30/16 11/14/[address] [place], [place] [address] Michelle Montana, RN Registered Nurse Urology 05/07/17 Anh Costa APRN SERICULTURIST Nurse Practitioner Nurse Practitioner 10/07 Martinez Galicia MD MD Ophthalmology 04/18/18 420 [place], [place] [address] Sabino Romano DPM MD Podiatry 08/11/[address] [place] [phone] documented as of this encounter
--- OUTSIDE RECORDS SUMMARY | 2022-07-30 20:04 | XMS_ITS | Encounter Summary ---
:1945 Author Organization [facility] Address [address] [place] [address]. [place] [address] Care Team Providers Name Role Phone Lisseth Vang MD Primary Care Provider Carlota Landeros MD Unavailable Lisseth Vang MD Unavailable Michelle Montana RN Unavailable Anh Costa APRN SUPERVISING EDITOR TRAILER Unavailable Unavailable Martinez Galicia MD Unavailable Sabino Romano DPM Unavailable Reason for Visit Reason Comments Medication Refill Encounter Details Date Type Department Care Team Description 06/07/2019 Refill [facility] Damian Villanueva MD Medication Refill Clinic [address] [address] [place] [address] [phone] Social History Tobacco Use Types Packs/Day Years [...] Internal Medicine Margot Branham MD [address] [phone] (Wo rk) documented as of this encounter Visit Diagnoses Diagnosis Hyperlipidemia LDL goal <100 Other and unspecified hyperlipidemia documented in this encounter Additional Health Concerns Assessment Noted Time PHQ-9 Depression Total Score: 1 03/30/2018 7:10 AM CDT documented as of this encounter Care Teams Flitch Hanger Relationship Specialty Start Date End Date Lisseth Vang MD PCP - General 04/13/16 11/14/[address] [place], [place] [address] Carlota Landeros MD MD Urology 04/10/[address] [place], [place] [address] Lisseth Vang MD PCP Family Practice 03/30/16 11/14/[address] [place], [place] [address] Michelle Montana, MODESTA Registered Nurse Urology 05/07/17 Anh Costa APRN SUPERVISING EDITOR TRAILER Nurse Practitioner Nurse Practitioner 10/07 Martinez Galicia MD MD Ophthalmology 04/18/18 420 [place], [place] [address] Sabino Romano DPM MD Podiatry 08/11/[address] [place] [address] [phone] documented as of this encounter
--- OUTSIDE RECORDS SUMMARY | 2022-07-30 20:04 | XMS_ITS | Encounter Summary ---
:1945 Author Organization [facility] Address [address] [place] [address]. [place] [address] Care Team Providers Name Role Phone Lisseth Vang MD Primary Care Provider Carlota Landeros MD Unavailable Lisseth Vang MD Unavailable Michelle Montana RN Unavailable Anh Costa APRN CITY COUNCIL MEMBER Unavailable Unavailable Martinez Galicia MD Unavailable [...] Visit Internal Medicine Margot Branham MD [address] [place] [address] (Wo rk) documented as of this encounter Visit Diagnoses Not on filedocumented in this encounter Additional Health Concerns Assessment Noted Time PHQ-9 Depression Total Score: 0 08/17/2019 2:03 PM VOCAL ARTIST documented as of this encounter Care Teams Felt Hat Flanging Operator Relationship Specialty Start Date End Date Lisseth Vang MD PCP - General 04/13/16 11/14/[address] [place] [address] Carlota Landeros MD MD Urology 04/10/[address] [place], [place] [address] Lisseth aVng MD PCP Family Practice 03/30/16 11/14/[address] [place] [address] Michelle Montana, MODESTA Registered Nurse Urology 05/07/17 Anh Costa APRN CITY COUNCIL MEMBER Nurse Practitioner Nurse Practitioner 10/07 Martinez Galicia MD MD Ophthalmology 04/18/18 420 [place] [address] Sabino Romano DPM MD Podiatry 08/11/[address] [phone] documented as of this encounter
--- OUTSIDE RECORDS SUMMARY | 2022-07-30 20:05 | XMS_ITS | Encounter Summary ---
:1945 Author Organization [facility] Address [address] [place] [address]. [place] [address] Care Team Providers Name Role Phone Lisseth Vang MD Primary Care Provider Carlota Landeros MD Unavailable Lisseth Vang MD Unavailable Michelle Montana RN Unavailable Anh Costa APRN TINSEL MACHINE OPERATOR Unavailable Unavailable Martinez Galicia MD Unavailable Sabino Romano DPM Unavailable Reason for Referral Consultation - Closed Specialty Diagnoses / Procedures Referred By Contact Refer red To Contact Diagnoses Family history of colon cancer Parul Salmeron APRN TINSEL MACHINE OPERATOR [address] [facility] 450 [place], [place] [address] Referral ID Status Reason Start Date Expiration Date Visits Requ ested Visits Authorized [id number] Closed 12/08/2018 12/08/2019 1 1 GRAVURE PRESS OPERATOR Reason for Visit Reason Comments Consult New consult hemorrhoids Encounter Details Date Type Department Care Team Description 12/08/2018 [facility] and laura Cooper, Recta l bleeding (Primary Dx); Rectal Surgery Parul Devlin APRN Family history of colon canc er; 909 [facility] SE TINSEL MACHINE OPERATOR Hemorrhoid prolapse; 4th Floor [address] [facility] Other constipation [place], [place] [phone] [place], [place] [phone] (Wo rk) Social History Tobacco Use Types [...] Comments Blood Pressure 125/71 12/08/2018 6:53 AM ROTO GRAVURE PRESS OPERATOR Pulse 53 12/08/2018 6:53 AM ROTO GRAVURE PRESS OPERATOR Temperature - - Respiratory Rate - - Oxygen Saturation 97% 12/08/2018 6:53 AM ROTO GRAVURE PRESS OPERATOR Inhaled Oxygen Concentration - - Weight 65.5 kg (144 lb 6.4 oz) 12/08/2018 6:53 AM ROTO GRAVURE PRESS OPERATOR Height 168.9 cm (5' 6.5) 12/08/2018 6:53 AM ROTO GRAVURE PRESS OPERATOR Body Mass Index 22.96 12/08/2018 6:53 AM ROTO GRAVURE PRESS OPERATOR documented in this encounter Patient Instructions [...] lifting or aspirin use for 3 weeks GRAVURE PRESS OPERATOR documented in this encounter Progress Notes Parul Salmeron APRN TINSEL MACHINE OPERATOR - 12/08/2018 7:00 AM CST Colon and [...] examination: Exam was chaperoned by Trina Abrams GRANITE POLISHER student and MARILOU Bauer Perianal skin: Intact [...] with internal hemorrhoidal banding. A suction hemorrhoidal leather cleaner was used to place a total of [...] ??? Myocardial Infarction Maternal Grandfather 82 of [place] ??? Hypertension Maternal Grandfather ??? Cardiovascular Paternal [...] procedure time, >50% counseling. Parul Salmeron APRN, GRANITE POLISHER-C Colon and Rectal Surgery [facility] This note was created using speech recognition software and may contain unintended word substitutions. GRAVURE PRESS OPERATOR documented in this encounter Nursing Notes Nelson Menjivar CMA - 12/08/2018 7:00 AM CST Chief Complaint Patient presents with ??? Consult New consult hemorrhoids Vitals: 12/08/18 0653 BP: 125/71 Pulse: 53 SpO2: 97% Weight: 144 lb 6.4 oz Height: 5' 6.5 Body mass index is 22.96 kg/m??. Nelson Menjivar CMA GRAVURE PRESS OPERATOR documented in this encounter Plan of Treatment Upcoming Encounters Date Type Specialty Care Team Description 09/10/2022 Office Visit Internal Medicine LogMargot sadler MD [address] [place] [phone] (Wo rk) Scheduled Referrals Name Type Priority Associated Diagnoses Order S chedule CANCER RISK MGMT/CANCER Referral Routine Family history of colon Ordered: 12/08/2018 GENETIC COUNSELING cancer REFERRAL documented as of this encounter Procedures Procedure Name Priority Date/Time Associated Diagnosis Comme nts HC ANOSCOPY W/WO BRUSH/WASH Routine 12/08/2018 8:59 AM H emorrhoid prolapse ROTO GRAVURE PRESS OPERATOR Rectal bleeding HC HEMORRHOIDECTOMY W Routine 12/08/2018 8:59 AM Hemorrh oid prolapse BANDING/LIGATION ROTO GRAVURE PRESS OPERATOR Rectal bleeding documented in this encounter Visit [...] as of this encounter Care Teams Workforce Management Analyst Relationship Specialty Start Date End Date Lisseth Vang MD PCP - General 04/13/16 11/14/[address] [place], [place] [address] Carlota Landeros MD MD Urology 04/10/[address] [place], [place] [address] Lisseth Vang MD PCP Family Practice 03/30/16 11/14/[address] [place], [place] [address] Michelle Montana, RN Registered Nurse Urology 05/07/17 Anh Costa APRN TINSEL MACHINE OPERATOR Nurse Practitioner Nurse Practitioner 10/07 Martinez Galicia MD MD Ophthalmology 04/18/18 420 [place] [address] Sabino Romano DPM MD Podiatry 08/11/[address] [place] [phone] documented as of this encounter
--- OUTSIDE RECORDS SUMMARY | 2022-07-30 20:05 | XMS_ITS | Encounter Summary ---
:1945 Author Organization [facility] Address [address] [place] [address]. [place] [address] Care Team Providers Name Role Phone Lisseth Vang MD Primary Care Provider Carlota Landeros MD Unavailable Lisseth Vang MD Unavailable Michelle Montana RN Unavailable Anh Costa APRN DATA REVIEWER Unavailable Unavailable Martinez Galicia MD Unavailable Sabino [...] Office Visit Internal Medicine Margot Branham MD [address] [place] [address] (Wo rk) documented as of this encounter Visit Diagnoses Not on filedocumented in this encounter Additional Health Concerns Assessment Noted Time PHQ-9 Depression Total Score: 1 03/30/2018 7:10 AM CDT documented as of this encounter Care Teams Ritual Circumciser Relationship Specialty Start Date End Date Lisseth Vang MD PCP - General 04/13/16 11/14/[address] [place] [address] Carlota Landeros MD MD Urology 04/10/[address] [place], [place] [address] Lisseth Vang MD PCP Family Practice 03/30/16 11/14/[address] [place], [place] [phone] Michelle Montana, MODESTA Registered Nurse Urology 05/07/17 Anh Costa APRN DATA REVIEWER Nurse Practitioner Nurse Practitioner 10/07 Martinez Galicia MD MD Ophthalmology 04/18/18 420 [place] [address] Sabino Romano DPM MD Podiatry 08/11/18 [facility] [address] [phone] documented as of this encounter
--- OUTSIDE RECORDS SUMMARY | 2022-07-30 20:05 | XMS_ITS | Encounter Summary ---
:1945 Author Organization [facility] Address [address] [place] [address]. [place] [address] Care Team Providers Name Role Phone Lisseth Vang MD Primary Care Provider Carlota Landeros MD Unavailable Lisseth Vang MD Unavailable Michelle Montana RN Unavailable Anh Costa APRN WEARING APPAREL FOLDER Unavailable Unavailable Martinez Galicia MD Unavailable Sabino [...] Office Visit Internal Medicine Margot Branham MD [address] [place] [address] (Wo rk) documented as of this encounter Visit Diagnoses Not on filedocumented in this encounter Additional Health Concerns Assessment Noted Time PHQ-9 Depression Total Score: 1 03/30/2018 7:10 AM CDT documented as of this encounter Care Teams Retail Sales Manager Relationship Specialty Start Date End Date Lisseth Vang MD PCP - General 04/13/16 11/14/[address] [place] [address] Carlota Landeros MD MD Urology 04/10/[address] [place], [place] [address] Lisseth Vang MD PCP Family Practice 03/30/16 11/14/[address] [place], [place] [phone] Michelle Montana, MODESTA Registered Nurse Urology 05/07/17 Anh Costa APRN WEARING APPAREL FOLDER Nurse Practitioner Nurse Practitioner 10/07 Martinez Galicia MD MD Ophthalmology 04/18/18 420 [place] [address] Sabino Romano DPM MD Podiatry 08/11/18 [facility] [address] [phone] documented as of this encounter
--- OUTSIDE RECORDS SUMMARY | 2022-07-30 20:05 | XMS_ITS | Encounter Summary ---
:1945 Author Organization [facility] Address [address] [place] [address]. [place] [address] Care Team Providers Name Role Phone Lisseth Vang MD Primary Care Provider Carlota Acuña MD Unavailable Lisseth Vang MD Unavailable Michelle Montana RN Unavailable Anh Costa APRN PULPIT OPERATOR Unavailable Unavailable Martinez Galicia MD Unavailable Sabino Romano DPM Unavailable Reason for Visit Reason Comments Lipids Encounter Details Date Type Department Care Team Description 10/10/2018 Office Visit [facility] for Anh Costa pidemia, Cardiovascular Disease CLAUDIA Marsh CNP uns pecified Prevention hyperlipidemia type 909 [facility] (Primary Dx) 5th [place] [address] Social History Tobacco Use Types [...] Comments Blood Pressure 124/67 10/10/2018 2:25 PM TRUER PINION AND WHEEL Pulse 71 10/10/2018 2:25 PM TRUER PINION AND WHEEL Temperature - - Respiratory Rate - - Oxygen Saturation 96% 10/10/2018 2:25 PM TRUER PINION AND WHEEL Inhaled Oxygen Concentration - - Weight 66.7 kg (147 lb) 10/10/2018 2:25 PM TRUER PINION AND WHEEL Height 168.9 cm (5' 6.5) 10/10/2018 2:25 PM TRUER PINION AND WHEEL Body Mass Index 23.37 10/10/2018 2:25 PM TRUER PINION AND WHEEL documented in this encounter Patient Instructions Patient InstructionsAnh Costa APRN CNP - 10/10/2018 2:00 PM CST Continue current medications. Great work with the weight reduction and regular exercise!! Follow up in one year. R PINION AND WHEEL documented in this encounter Progress Notes Anh [...] 3 ??? ipratropium (ATROVENT) 0.06 % spray [place] 2 sprays into both nostrils 4 times [...] ??? Myocardial Infarction Maternal Grandfather 82 of [place] ??? Cardiovascular Paternal Grandmother age 65 of [...] file Occupational History ??? 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 Smoking status: Never Smoker ??? Smokeless tobacco: Never Used Substance and Sexual Activity ??? Alcohol use: Yes Comment: wine few times/wk ??? Drug use: No ??? Sexual activity: Not Currently Other Topics Concern ??? Parent/sibling w/ CABG, [place] or angioplasty before 65F 55M? Not Asked [...] 1 son - - still working at [employer] - hungarian as a second language - lives in [...] Return in one year for follow up. R PINION AND WHEEL documented in this encounter Plan of Treatment Upcoming Encounters Date Type Specialty Care Team Description 09/10/2022 Office Visit Internal Medicine LogeaMargot man MD [address] [phone] (Wo rk) documented as of this encounter Visit Diagnoses Diagnosis Hyperlipidemia, unspecified hyperlipidem ia type - Primary documented in this encounter Additional Health Concerns Assessment Noted Time PHQ-9 Depression Total Score: 1 03/30/2018 7:10 AM CDT documented as of this encounter Care Teams Scrap Hooker Relationship Specialty Start Date End Date Lisseth Vang MD PCP - General 04/13/16 11/14/[address] [place], [place] [address] Carlota Acuña MD MD Urology 04/10/[address] [place], [place] [address] Lisseth Vang MD PCP Family Practice 03/30/16 11/14/[address] [place], [place] [address] Michelle Montana, MODESTA Registered Nurse Urology 05/07/17 Julissa, Anh Salma, READING AIDE PULPIT OPERATOR Nurse Practitioner Nurse Practitioner 10/07 Martinez Galicia MD MD Ophthalmology 04/18/18 420 [place] [address] Sabino Romano DPM MD Podiatry 08/11/[address] [phone] documented as of this encounter
--- OUTSIDE RECORDS SUMMARY | 2022-07-30 20:05 | XMS_ITS | Encounter Summary ---
:1945 Author Organization [facility] Address [address] [place] [address]. [place] [address] Care Team Providers Name Role Phone Lisseth Vang MD Primary Care Provider Carlota Landeros MD Unavailable Lisseth Vang MD Unavailable Michelle Montana RN Unavailable Anh Costa APRN WOOD HEEL ATTACHER Unavailable Unavailable Martinez Galicia MD Unavailable Sabino Romano DPM Unavailable Encounter Details Date Type Department Care Team Description [facility] Rehabilitation Services ci, Nitin n, PT Mixed stress and urge urinary incontinen ce Elsa [facility] 6545 [facility] S out 6545 [facility] [address] [place] [address] [place] [address] [phone] Social History Tobacco Use Types Packs/Day Years [...] Visit Internal Medicine LogMargot sadler MD [address] [phone] (Wo rk) documented as of this encounter Procedures Procedure Name Priority Date/Time Associated Diagnosis Comme nts [facility] MANUAL THER Routine 02/15/2019 8:46 AM [...] documented as of this encounter Care Teams Print Developer Automatic Relationship Specialty Start Date End Date Lisseth Vang MD PCP - General 04/13/16 11/14/[address] [place], [place] [address] Carlota Landeros MD MD Urology 04/10/[address] [place], [place] [address] Lisseth Vang MD PCP Family Practice 03/30/16 11/14/[address] [place], [place] [address] Michelle Montana, MODESTA Registered Nurse Urology 05/07/17 Anh Costa APRN WOOD HEEL ATTACHER Nurse Practitioner Nurse Practitioner 10/07 Martinez Galicia MD MD Ophthalmology 04/18/18 420 [place], [place] [address] Sabino Romano DPM MD Podiatry 08/11/[address] [place] [phone] documented as of this encounter
--- OUTSIDE RECORDS SUMMARY | 2022-07-30 20:05 | XMS_ITS | Encounter Summary ---
:1945 Author Organization [facility] Address [address] [place] [address]. [place] [address] Care Team Providers Name Role Phone Lisseth Vang MD Primary Care Provider Carlota Landeros MD Unavailable Lisseth Vang MD Unavailable Michelle Montana RN Unavailable Anh Costa APRN, CNP Unavailable Unavailable Martinez Galicia MD Unavailable Sabino Romano DPM Unavailable Encounter Details Date Type Department Care Team Description 04/04/2019 [facility] Only [facility] for Anh Costa hypertension (Primary Dx); Cardiovascular Disease CLAUDIA Marsh CNP Hyp erlipidemia, unspecified hyperlipidemia type Prevention [address] [place] [address] 5[address] [place] [address] Social History Tobacco Use [...] Office Visit Internal Medicine LogeaisMargot MD 909 [facility] 4TH [place] [address] (Wo rk) documented as of this encounter Results Albumin Random Urine Quantitative with Creat Ratio (04/10/2019 10:23 AM CDT) Patholo gist Method Time Signature Creatinine 86 mg/dL 04/10/2019 [facility] Urine 11:02 AM CDT [facility] Albumin Urine <5 mg/L 04/10/2019 [facility] mg/L 11:11 AM CDT [facility] Albumin Urine Unable to 0 - 25 04/10/2019 [facility] mg/g Cr calculate due mg/g Cr 11:11 AM CDT [place] to low value [facility] Specimen Anatomical Collection Method Collection Time Receive d Time (Source) Location / / Volume Laterality Urine specimen 04/10/2019 10:23 9 (specimen) AM CDT 10:28 AM CDT Anh Costa APRN, CNP LAB - URINE ORDERABLES Performing Organization Address City/[facility] [place] [address] [facility] Glucose (04/10/2019 7:55 AM CDT) athologist Signature Glucose 96 70 - 99 04/13/2019 [facility] mg/dL 10:01 AM CDT [facility] Comment: Fasting specimen Fasting specimen CORRECTED ON 04/13 AT 1001: PREVIOUSLY R EPORTED 96 Non Fasting Specimen Anatomical Collection Method Collection Time Receive d Time (Source) Location / / Volume Laterality Blood specimen 04/10/2019 7:55 AM 019 7:56 (specimen) CDT AM CDT Anh Costa APRN, CNP LAB - BLOOD ORDERABLES Performing Organization Address City/[facility] Phon e Number [address] [address] [facility] CRP cardiac risk (04/10/2019 7:55 AM CDT) P athologist Signature CRP Cardiac 0.9 mg/L 04/10/2019 [facility] Risk 11:51 AM CDT [facility] Comment: Reference Values: Low Risk: ? <1.0 mg/L Average Risk: ? 1.0-3.0 mg/L High Risk: ?>3.0 mg/L Acute Inflammation: >8.0 mg/L Specimen Anatomical Collection Method Collection Time Receive d Time (Source) Location / / Volume Laterality Blood specimen 04/10/2019 7:55 AM 019 7:56 (specimen) CDT AM CDT Anh Costa APRN, CNP LAB - BLOOD ORDERABLES Performing Organization Address City/State/ZIP Code Phon e Number [facility] [address] [place], [place] [id number] [place] [address] Lipid panel reflex to direct LDL Fasting (04/10/2019 7:55 AM CDT) athologist Signature Cholesterol 132 <200 mg/dL 04/10/2019 [facility] 8:26 AM CDT [facility] Triglycerides 54 <150 mg/dL 04/13/2019 [facility] 10:01 AM CDT [facility] Comment: Fasting specimen Fasting specimen CORRECTED ON 04/13 AT 1001: PREVIOUSLY R EPORTED 54 Non Fasting HDL Cholesterol 78 >49 mg/dL 04/10/2019 8:31 AM CDT [facility] LDL Cholesterol 43 <100 mg/dL 04/13/2019 10:01 AM [facility] Calculated CDT [facility] Comment: Desirable: ? <100 mg/dl CORRECTED ON 04/13 AT 1001: PREVIOUSLY R EPORTED 44 Desirable: ? <100 mg/dl Non HDL Cholesterol 54 <130 mg/dL 04/10/2019 8:31 AM CDT [facility] Specimen Anatomical Collection Method Collection Time Receive d Time (Source) Location / / Volume Laterality Blood specimen 04/10/2019 7:55 AM 019 7:56 (specimen) CDT AM CDT Anh Costa APRN, CNP LAB - BLOOD ORDERABLES Performing Organization Address City/State/ZIP Code Phon e Number [facility] 9[address] [place] [address] [facility] documented in this encounter Visit Diagnoses Diagnosis Essential hypertension - Primary Unspecified essential hypertension Hyperlipidemia, unspecified hyperlipidem ia type documented in this encounter Additional Health Concerns Assessment Noted Time PHQ-9 Depression Total Score: 1 03/30/2018 7:10 AM CDT documented as of this encounter Care Teams Wallcovering Hanger Relationship Specialty Start Date End Date Lisseth Vang MD PCP - General 04/13/16 11/14/[address] [place], [place] [address] Carlota Landeros MD MD Urology 04/10/[address] [place], [place] [address] Lisseth Vang MD PCP Family Practice 03/30/16 11/14/[address] [place], [place] [address] Michelle Montana, MODESTA Registered Nurse Urology 05/07/17 Anh Costa APRN HAND II CUTTER Nurse Practitioner Nurse Practitioner 10/07 Martinez Galicia MD MD Ophthalmology 04/18/18 420 [place], [place] [address] Sabino Romano DPM MD Podiatry 08/11/[address] [place] [phone] documented as of this encounter
--- OUTSIDE RECORDS SUMMARY | 2022-07-30 20:05 | XMS_ITS | Encounter Summary ---
:1945 Author Organization [facility] Address [address] [place] [address]. [place] [address] Care Team Providers Name Role Phone Lisseth Vang MD Primary Care Provider Carlota Landeros MD Unavailable Lisseth Vang MD Unavailable Michelle Montana RN Unavailable Anh Costa APRN JUNIOR SYSTEMS ADMINISTRATOR Unavailable Unavailable Martinez Galicia MD Unavailable Sabino Romano DPM Unavailable Encounter Details Date Type Department Care Team Description 04/05/2019 Therapy Visit [facility] Saira Urinar y retention (Primary Dx); Rehabilitation Services edward, Nitin reeves, PT Urinary urgency; Petty JAN PETTY Mixed stress and urge urinary incontinen 6545 [facility] S outh 6545 [facility] [address] [place] [address] [place] [address] [phone] Social History Tobacco Use Types Packs/Day Years [...] Office Visit Internal Medicine LogeaisMargot MD [address] [address] (Wo rk) documented as of this encounter [...] documented as of this encounter Care Teams Weaver Apprentice Relationship Specialty Start Date End Date Lsiseth Vang MD PCP - General 04/13/16 11/14/[address] [place], [place] [phone] Carlota Landeros MD MD Urology 04/10/[address] [place], [place] [address] Lisseth Vang MD PCP Family Practice 03/30/16 11/14/[address] [place], [place] [address] Michelle Montana, MODESTA Registered Nurse Urology 05/07/17 Anh Costa APRN JUNIOR SYSTEMS ADMINISTRATOR Nurse Practitioner Nurse Practitioner 10/07 Martinez Galicia MD MD Ophthalmology 04/18/[address] [place], [place] [address] Sabino Romano DPM MD Podiatry 08/11/[address] [place] [phone] documented as of this encounter
--- OUTSIDE RECORDS SUMMARY | 2022-07-30 20:05 | XMS_ITS | Encounter Summary ---
:1945 Author Organization [place] Address [address] [place] [address]. [place] [address] Care Team Providers Name Role Phone Lisseth Vang MD Primary Care Provider Carlota Landeros MD Unavailable Lisseth Vang MD Unavailable Michelle Montana RN Unavailable Anh Costa APRN WEIGH AND CHARGE WORKER Unavailable Unavailable Martinez Galicia MD Unavailable [...] Office Visit Internal Medicine Margot Branham MD [address] [place] [address] (Wo rk) documented as of this encounter Visit Diagnoses Not on filedocumented in this encounter Additional Health Concerns Assessment Noted Time PHQ-9 Depression Total Score: 1 03/30/2018 7:10 AM CDT documented as of this encounter Care Teams Irrigation Engineer Relationship Specialty Start Date End Date Lisseth Vang MD PCP - General 04/13/16 11/14/[address] [place] [address] Carlota Landeros MD MD Urology 04/10/[address] [place], [place] [address] Lisseth Vang MD PCP Family Practice 03/30/16 11/14/[address] [place], [place] [id number] Michelle Montana, MODESTA Registered Nurse Urology 05/07/17 Anh Costa APRN WEIGH AND CHARGE WORKER Nurse Practitioner Nurse Practitioner 10/07 Martinez Galicia MD MD Ophthalmology 04/18/18 [address] [place] [address] Sabino Romano DPM MD Podiatry 08/11/[address] [facility] [address] [phone] documented as of this encounter
--- OUTSIDE RECORDS SUMMARY | 2022-07-30 20:05 | XMS_ITS | Encounter Summary ---
:1945 Author Organization [place] Address [address] [place] [address]. [place] [address] Care Team Providers Name Role Phone Lisseth [...] Type Department Care Team Description 01/31/[address] [facility] Anh Costa, Refill Request Clinic [place] CLAUDIA MILLER (Alternative Requested - [address] [place] [address] irbesartan (AVAPRO) 150 [place], [place] MG tablet [place] on back [phone] order) [phone] Social History Tobacco Use Types Packs/Day Years [...] Visit Internal Medicine Logeais, MD Margot [address] [phone] (Wo rk) documented as of this encounter Visit Diagnoses Diagnosis Essential hypertension Unspecified essential hypertension documented in this encounter Additional Health Concerns Assessment Noted Time PHQ-9 Depression Total Score: 1 03/30/2018 7:10 AM CDT documented as of this encounter Care Teams Swimming Pool Serviceperson Relationship Specialty Start Date End Date Lisseth Vang MD PCP - General 04/13/16 11/14/[address] [place], [place] [address] Carlota Landeros MD MD Urology 04/10/[address] [place], [place] [address] Lisseth Vang MD PCP Family Practice 03/30/16 11/14/[address] [place], [place] [address] Michelle Montana RN Registered Nurse Urology 05/07/17 Anh Costa APRN BANQUET STEWARD Nurse Practitioner Nurse Practitioner 10/07 Martinez Galicia MD MD Ophthalmology 04/18/18 420 [place], [place] [address] Sabino Romano DPM MD Podiatry 08/11/[address] [place] [address] [phone] documented as of this encounter
--- OUTSIDE RECORDS SUMMARY | 2022-07-30 20:05 | XMS_ITS | Encounter Summary ---
:1945 Author Organization [place] Address [address] [place] [address]. [place] [address] Care Team Providers Name Role Phone Lisseth Vang MD Primary Care Provider Carlota Landeros MD Unavailable Lisseth Vang MD Unavailable Michelle Montana RN Unavailable Anh Costa APRN TOYS AND GAMES HAND FINISHER Unavailable Unavailable Martinez Galicia MD Unavailable Sabino Romano DPM Unavailable Reason for Visit JAN Physical Therapy - Closed Specialty Diagnoses / Procedures Referred By Contact Refer red To Contact Diagnoses [place] [address] [place], [place] [address] Referral ID Status Reason Start Date Expiration Date Visits Requ ested Visits Authorized [id number] Closed 12/21/2018 12/21/2019 1 1 Encounter Details Date Type Department Care Team Description 01/19/[address] [facility] [address] [place] [address] Mixed stress and urge urinary incontinen ce (Primary Dx); Rehabilitation Services Nicolle Brandon, PT JAN [place] [address] [place], [place] [address] Urinary urgency; [place] PFD (pelvic floor dysfunctio n) [address] [address] [place] [address] Social History Tobacco Use Types Packs/Day Years Used Date Smoking Tobacco: Never Smokeless Tobacco: Never Alcohol Use Standard Drinks/Week Comments Yes 0 (1 standard drink = 0.6 oz pure alcoho l) wine few times/wk Sex Assigned at Date Recorded Female 12/20/2018 4:10 PM CDT documented as of this encounter Progress Notes Nicolle Brandon, PT - 01/19/2019 7:25 AM CDT [facility] Initial Evaluation Subjective: The history is provided by the patient. Patient is a 73 year female who presents to [facility] with mixed urinary incontinence. Patient states she [...] a day Consistancy of stool? soft formed, [place] Stool Scale 3 Do you ignore the [...] Sheet for this information) Short term and half-way goals: (See Goal Flow Sheet for this [...] Internal Medicine Margot Branham MD [address] [phone] (Wo rk) documented as of this encounter [...] documented as of this encounter Care Teams Insurance Claims Representative Relationship Specialty Start Date End Date Lisseth Vang MD PCP - General 04/13/16 11/14/[address] [place], [place] [address] Carlota Landeros MD MD Urology 04/10/[address] [place], [place] [address] Lisseth Vang MD PCP Family Practice 03/30/16 11/14/[address] [place], [place] [address] Michelle Montana, RN Registered Nurse Urology 05/07/17 Anh Costa APRN TOYS AND GAMES HAND FINISHER Nurse Practitioner Nurse Practitioner 10/07 Martinez Galicia MD MD Ophthalmology 04/18/18 420 [place] [address] Sabino Romano DPM MD Podiatry 08/11/[address] [place] [phone] documented as of this encounter
--- OUTSIDE RECORDS SUMMARY | 2022-07-30 20:05 | XMS_ITS | Encounter Summary ---
:1945 Author Organization [place] Address [address] [place] [address]. [place] [address] Care Team Providers Name Role Phone Lisseth Vang MD Primary Care Provider Carlota Landeros MD Unavailable Lisseth Vang MD Unavailable Michelle Montana RN Unavailable Anh Costa APRN SCHEDULE CHECKER Unavailable Unavailable Martinez Galicia MD Unavailable Sabino Romano DPM Unavailable Encounter Details Date Type Department Care Team Description [facility] Rehabilitation Services i, Nicolle , PT Mixed stress and urge urinary incontinen ce; [place] JAN [place] PFD (pelvic floor dysfunction) 6545 [facility] S out [address] [facility] [address] [place] [address] [place] [address] [phone] Social History Tobacco Use Types Packs/Day Years [...] Internal Medicine Margot Branham MD [address] [address] (Wo rk) documented as of this encounter Procedures Procedure Name Priority Date/Time Associated Diagnosis Comme nts [facility] MANUAL THER Routine 02/01/2019 3:30 [...] as of this encounter Care Teams Card Lacer Jacquard Relationship Specialty Start Date End Date Lisseth Vang MD PCP - General 04/13/16 11/14/[address] [place], [place] [address] Carlota Landeros MD MD Urology 04/10/[address] [place], [place] [address] Lisseth Vang MD PCP Family Practice 03/30/16 11/14/[address] [place], [place] [address] Michelle Montana, MODESTA Registered Nurse Urology 05/07/17 Anh Costa APRN SCHEDULE CHECKER Nurse Practitioner Nurse Practitioner 10/07 Martinez Galicia MD MD Ophthalmology 04/18/[address] [place] [address] Sabino Romano DPM MD Podiatry 08/11/[address] [place] [phone] documented as of this encounter
--- OUTSIDE RECORDS SUMMARY | 2022-07-30 20:05 | XMS_ITS | Encounter Summary ---
:1945 Author Organization [place] Address [address] [place] [address]. [place] [address] Care Team Providers Name Role Phone Lisseth Vang MD Primary Care Provider Carlota Landeros MD Unavailable Lisseth Vang MD Unavailable Michelle Montana RN Unavailable Anh Costa APRN KAPOK MACHINE OPERATOR Unavailable Unavailable Martinez Galicia MD Unavailable Sabino Romano DPM Unavailable Encounter Details Date Type Department Care Team Description 02/07/2019 [facility] Only [facility] Anh Costa hypertension Cardiovascular Disease CLAUDIA Marsh KAPOK MACHINE OPERATOR Prevention [address] [place] [address] Social History Tobacco Use Types Packs/Day [...] Office Visit Internal Medicine LogMargot sadler MD [address] [place] [address] (Wo rk) documented as of this encounter Visit Diagnoses Diagnosis Essential hypertension Unspecified essential hypertension documented in this encounter Additional Health Concerns Assessment Noted Time PHQ-9 Depression Total Score: 1 03/30/2018 7:10 AM CDT documented as of this encounter Care Teams Lean Manufacturing Coordinator Relationship Specialty Start Date End Date Lisseth Vang MD PCP - General 04/13/16 11/14/[address] [place], [place] [address] Carlota Landeros MD MD Urology 04/10/[address] [place] [address] Lisseth Vang MD PCP Family Practice 03/30/16 11/14/[address] [place], [place] [address] Michelle Montana, MODESTA Registered Nurse Urology 05/07/17 Anh Costa APRN KAPOK MACHINE OPERATOR Nurse Practitioner Nurse Practitioner 10/07 Martinez Galicia MD MD Ophthalmology 04/18/18 420 [place], [place] [address] Sabino Romano DPM MD Podiatry 08/11/[address] [place] [address] [phone] documented as of this encounter
--- OUTSIDE RECORDS SUMMARY | 2022-07-30 20:05 | XMS_ITS | Encounter Summary ---
:1945 Author Organization [place] Address [address] [place] [address]. [place] [address] Care Team Providers Name Role Phone Lisseth [...] Costa APRN CNP Procedures Spirometry, Breathing Capacity [address] [place] [address] Referral ID Status Reason Start Date Expiration Date Visits Requ ested Visits Authorized [id number] Closed 04/10/2019 04/09/2020 1 1 Reason for Visit Reason Comments Hypertension Encounter Details Date Type Department Care Team Description 04/10/2019 Office Visit [facility] Anh Costa pidemia, unspecified hyperlipidemia type (Primary Dx); Cardiovascular Disease CLAUDIA Marsh CNP Ot er specified peripheral vascular diseases (H) Prevention [address] [facility] 5th [place] [address] Social History Tobacco Use Types [...] this encounter Progress Notes Anh Costa, CLAUDIA SHIFT NURSE MANAGER - 04/10/2019 1:00 PM CDT [facility] Cardiovascular Disease Prevention - Exam [...] Medium Reason For Visit Patient here for [facility] early detection of atherosclerosis and CVD [...] Dr Baer ENT ??? uteroscopy 05/04/2018 Current Meds Current [...] ??? Myocardial Infarction Maternal Grandfather 82 of [place] ??? Hypertension Maternal Grandfather ??? Cardiovascular Paternal [...] eating. LDL is 44 today (was 141 [id number]), HDL is higher at 78 (was 62). [...] Internal Medicine Logeais, MD Margot [address] [address] (Wo rk) documented as of this encounter [...] 12-lead, tracing only (04/10/2019 1:54 PM CDT) [facility] gist Method Time Signature Interpretation ECG [...] documented as of this encounter Care Teams Airport Operations Coordinator Relationship Specialty Start Date End Date Lisseth Vang MD PCP - General 04/13/16 11/14/[address] [place], [place] [address] Carlota Landeros MD MD Urology 04/10/[address] [place] [address] Lisseth Vang MD PCP Family Practice 03/30/16 11/14/[address] [place], [place] [address] Michelle Montana, MODESTA Registered Nurse Urology 05/07/17 Anh Costa APRN CNP Nurse Practitioner Nurse Practitioner 10/07 Martinez Galicia MD MD Ophthalmology 04/18/18 420 [place], [place] [address] Sabino Romano DPM MD Podiatry 08/11/[address] [phone] documented as of this encounter
--- OUTSIDE RECORDS SUMMARY | 2022-07-30 20:05 | XMS_ITS | Encounter Summary ---
:1945 Author Organization [place] Address [address] [place] [address]. [place] [address] Care Team Providers Name Role Phone Lisseth Vang MD Primary Care Provider Carlota Landeros MD Unavailable Lisseth Vang MD Unavailable Michelle Montana RN Unavailable Anh Costa APRN SPRAY MIXER Unavailable Unavailable Martinez Galicia MD Unavailable [...] Visit Internal Medicine Margot Branham MD [address] [place] [address] (Wo rk) documented as of this encounter Visit Diagnoses Not on filedocumented in this encounter Additional Health Concerns Assessment Noted Time PHQ-9 Depression Total Score: 1 03/30/2018 7:10 AM CDT documented as of this encounter Care Teams Renewals Specialist Relationship Specialty Start Date End Date Lisseth Vang MD PCP - General 04/13/16 11/14/[address] [place] [address] Carlota Landeros MD MD Urology 04/10/[address] [place], [place] [address] Lisseth Vang MD PCP Family Practice 03/30/16 11/14/[address] [place], [place] [address] Michelle Montana, MODESTA Registered Nurse Urology 05/07/17 Anh Costa APRN SPRAY MIXER Nurse Practitioner Nurse Practitioner 10/07 Martinez Galicia MD MD Ophthalmology 04/18/18 420 [place] [address] Sabino Romano DPM MD Podiatry 08/11/18 [facility] [address] [phone] documented as of this encounter
--- OUTSIDE RECORDS SUMMARY | 2022-07-30 20:05 | XMS_ITS | Encounter Summary ---
:1945 Author Organization [place] Address [address] [place] [address]. [place] [address] Care Team Providers Name Role Phone Lisseth Vang MD Primary Care Provider Carlota Landeros MD Unavailable Lisseth Vang MD Unavailable Michelle Montana RN Unavailable Anh Costa APRN REHABILITATION SERVICES MANAGER Unavailable Unavailable Martinez Galicia MD Unavailable Sabino Romano DPM Unavailable Reason for Visit Reason Comments RECHECK Encounter Details Date Type Department Care Team Description 10/11/2018 [facility] Kendra Cali Nasal turbinate Throat MD Laurita hypertrophy (Primary 9 [facility] [address] Dx) 4th Floor [place], [place] [address] [phone] Social History Tobacco Use Types Packs/Day Years [...] 66.7 kg (147 lb) 10/11/2018 4:11 PM PUBLIC WORKS TECHNICIAN Height 168.9 cm (5' 6.5) 10/11/2018 4:11 PM PUBLIC WORKS TECHNICIAN Body Mass Index 23.37 10/11/2018 4:11 PM PUBLIC WORKS TECHNICIAN documented in this encounter Patient Instructions [...] be purchased over the counter. Generic is okay-[place] -You may feel more congested for 1-2 weeks after the treatment and that the full effect of the treatment may not be felt until 4 weeks after procedure. Please call our clinic for any questions,concerns,or worsening symptoms. Clinic #[phone] Option #3 for the triage nurse. IC WORKS TECHNICIAN documented in this encounter Progress Notes Kendra [...] the procedure. Patient tolerated the procedure well. IC WORKS TECHNICIAN documented in this encounter Nursing Notes Alonzo Butler EMT - 10/11/2018 4:15 PM CST Chief Complaint Patient presents with ??? RECHECK Luke Rosado IC WORKS TECHNICIAN documented in this encounter Plan of Treatment Upcoming Encounters Date Type Specialty Care Team Description 09/10/2022 Office Visit Internal Medicine LogeaMargot man MD [address] [phone] (Wo rk) documented as of this encounter Visit Diagnoses Diagnosis Nasal turbinate hypertrophy - Primary Hypertrophy of nasal turbinates documented in this encounter Additional Health Concerns Assessment Noted Time PHQ-9 Depression Total Score: 1 03/30/2018 7:10 AM CDT documented as of this encounter Care Teams Payment Rep Relationship Specialty Start Date End Date Lisseth aVng MD PCP - General 04/13/16 11/14/[address] [place], [place] [address] Carlota Landeros MD MD Urology 04/10/[address] [place], [place] [address] Lisseth Vang MD PCP Family Practice 03/30/16 11/14/[address] [place], [place] [address] Michelle Montana, MODESTA Registered Nurse Urology 05/07/17 Anh Costa APRN REHABILITATION SERVICES MANAGER Nurse Practitioner Nurse Practitioner 10/07 Martinez Galicia MD MD Ophthalmology 04/18/18 420 [place] [address] Sabino Romano DPM MD Podiatry 08/11/[address] [place] [phone] documented as of this encounter
--- OUTSIDE RECORDS SUMMARY | 2022-07-30 20:05 | XMS_ITS | Encounter Summary ---
:1945 Author Organization [place] Address [address] [place] [address]. [place] [address] Care Team Providers Name Role Phone Lisseth Vang MD Primary Care Provider Carlota Landeros MD Unavailable Lisseth Vang MD Unavailable Michelle Montana RN Unavailable Anh Costa APRN SLIP DUMPER Unavailable Unavailable Martinez Galicia MD Unavailable Sabino [...] Visit Internal Medicine Margot Branham MD [address] [place] [address] (Wo rk) documented as of this encounter Visit Diagnoses Not on filedocumented in this encounter Additional Health Concerns Assessment Noted Time PHQ-9 Depression Total Score: 1 03/30/2018 7:10 AM CDT documented as of this encounter Care Teams Silver Plater Relationship Specialty Start Date End Date Lisseth Vang MD PCP - General 04/13/16 11/14/[address] [place] [address] Carlota Landeros MD MD Urology 04/10/[address] [place], [place] [address] Lisseth Vang MD PCP Family Practice 03/30/16 11/14/[address] [place], [place] [address] Michelle Montana, MODESTA Registered Nurse Urology 05/07/17 Anh Costa APRN SLIP DUMPER Nurse Practitioner Nurse Practitioner 10/07 Martinez Galicia MD MD Ophthalmology 04/18/18 420 [place] [address] Sabino Romano DPM MD Podiatry 08/11/18 [facility] [address] [phone] documented as of this encounter
--- OUTSIDE RECORDS SUMMARY | 2022-07-30 20:05 | XMS_ITS | Encounter Summary ---
:1945 Author Organization [place] Address [address] [place] [address]. [place] [address] Care Team Providers Name Role Phone Lisseth Vang MD Primary Care Provider Carlota Landeros MD Unavailable Lisseth Vang MD Unavailable Michelle Montana RN Unavailable Anh Costa APRN SOYBEAN SPECIALTIES COOK Unavailable Unavailable Martinez Galicia MD Unavailable Sabino Romano DPM Unavailable Reason for Visit Reason Onset Date Comments *-*INCOMING RECORDS*-* 12/08/2018 Encounter Details Date Type Department Care Team Description 12/08/2018 PRE VISIT M [facility] Colon and laura Cooper, *-*IN COMING RECORDS*-* Rectal Surgery Parul Devlin APRN 9 [facility] 4th Floor [address] [address] [place], [place] [phone] [address] (Wo rk) Social History Tobacco Use [...] Date: 12/08/18 ?? Time: 7AM ?? Location: [facility] REFERRAL INFORMATION: ?? Referring provider: Self ?? [...] MRI N/A XRAY N/A ULTRASOUND (ENDOANAL/ENDORECTAL) N/A INE LEATHER TRIMMER documented in this encounter Plan of Treatment Upcoming Encounters Date Type Specialty Care Team Description 09/10/2022 Office Visit Internal Medicine Margot Branham MD [address] [address] (Wo rk) documented as of this encounter Visit Diagnoses Not on filedocumented in this encounter Additional Health Concerns Assessment Noted Time PHQ-9 Depression Total Score: 1 03/30/2018 7:10 AM CDT documented as of this encounter Care Teams Aquacultural Worker Supervisor Relationship Specialty Start Date End Date Lisseth Vang MD PCP - General 04/13/16 11/14/[address] [place], [place] [address] Carlota Landeros MD MD Urology 04/10/[address] [place], [place] [address] Lisseth Vang MD PCP Family Practice 03/30/16 11/14/[address] [place], [place] [address] Michelle Montana, RN Registered Nurse Urology 05/07/17 Anh Costa APRN SOYBEAN SPECIALTIES COOK Nurse Practitioner Nurse Practitioner 10/07 Martinez Galicia MD MD Ophthalmology 04/18/18 420 [place] [address] Sabino Romano DPM MD Podiatry 08/11/[address] [place] [phone] documented as of this encounter
--- OUTSIDE RECORDS SUMMARY | 2022-07-30 20:05 | XMS_ITS | Encounter Summary ---
:1945 Author Organization [place] Address [address] [place] [address]. [address] Care Team Providers Name Role Phone Lisseth Vang MD Primary Care Provider Carlota Landeros MD Unavailable Lisseth Vang MD Unavailable Michelle Montana RN Unavailable Anh Costa APRN SUPERVISOR DRAWING Unavailable Unavailable Martinez Galicia MD Unavailable Sabino [...] Visit Internal Medicine Margot Branham MD [address] [place] [address] (Wo rk) documented as of this encounter Visit Diagnoses Not on filedocumented in this encounter Additional Health Concerns Assessment Noted Time PHQ-9 Depression Total Score: 1 03/30/2018 7:10 AM CDT documented as of this encounter Care Teams Patient Companion Relationship Specialty Start Date End Date Lisseth Vang MD PCP - General 04/13/16 11/14/[address] [place] [address] Carlota Landeros MD MD Urology 04/10/[address] [place], [place] [address] Lisseth Vang MD PCP Family Practice 03/30/16 11/14/[address] [place], [place] [phone] Michelle Montana, MODESTA Registered Nurse Urology 05/07/17 Anh Costa APRN SUPERVISOR DRAWING Nurse Practitioner Nurse Practitioner 10/07 Martinez Galicia MD MD Ophthalmology 04/18/18 420 [place] [address] Sabino Romano DPM MD Podiatry 08/11/[address] [facility] [address] [phone] documented as of this encounter
--- OUTSIDE RECORDS SUMMARY | 2022-07-30 20:05 | XMS_ITS | Encounter Summary ---
:1945 Author Organization [place] Address [address] [place] [address]. [place] [address] Care Team Providers Name Role Phone Lisseth Vang MD Primary Care Provider Carlota Landeros MD Unavailable Lisseth Vang MD Unavailable Michelle Montana RN Unavailable Anh Costa APRN STOCK DIGGER Unavailable Unavailable Martinez Galicia MD Unavailable Sabino Romano DPM Unavailable Encounter Details Date Type Department Care Team Description 02/08[facility]2019 [facility] Rehabilitation Services i, Nicolle , PT Mixed stress and urge urinary incontinen ce; [place] PFD (pelvic floor dysfunction) 6545 [facility] S out 6545 [facility] [address] [place] [address] [place] [address] [phone] Social History Tobacco Use Types Packs/Day Years [...] Internal Medicine Margot Branham MD [address] [address] (Wo rk) documented as of this encounter Procedures Procedure Name Priority Date/Time Associated Diagnosis Comme nts [facility] MANUAL THER Routine 02/08/2019 4:13 PM [...] documented as of this encounter Care Teams Stock Worker Relationship Specialty Start Date End Date Lisseth Vang MD PCP - General 04/13/16 11/14/[address] [place], [place] [address] Carlota Landeros MD MD Urology 04/10/[address] [place], [place] [address] Lisseth Vang MD PCP Family Practice 03/30/16 11/14/[address] [place], [place] [address] Michelle Montana, MODESTA Registered Nurse Urology 05/07/17 Anh Costa APRN STOCK DIGGER Nurse Practitioner Nurse Practitioner 10/07 Martinez Galicia MD MD Ophthalmology 04/18/[address] [place] [address] Sabino Romano DPM MD Podiatry 08/11/[address] [place] [phone] documented as of this encounter
--- OUTSIDE RECORDS SUMMARY | 2022-07-30 20:05 | XMS_ITS | Encounter Summary ---
:1945 Author Organization [facility] Address [address] [place] [address]. [place] [address] Care Team Providers Name Role Phone Lisseth Vang MD Primary Care Provider Carlota Landeros MD Unavailable Lisseth Vang MD Unavailable Michelle Montana RN Unavailable Anh Costa APRN MECHANICAL DESIGN DRAFTER Unavailable Unavailable Martinez Galicia MD Unavailable Sabino Romano DPM Unavailable Encounter Details Date Type Department Care Team Description 04/10/2019 Orders Only [facility] Essential hypertension; [address] [place] [address] Hyperlipidemia, unspecified hyperlipidemia type 1st [place] [address] Social History Tobacco Use Types [...] Visit Internal Medicine LogeaMargot man MD [address] [facility] [place] [address] (Wo rk) documented as of [...] 04/10/2019 [facility] Urine 11:02 AM CDT [facility] Albumin Urine <5 mg/L 04/10/2019 [facility] mg/L 11:11 AM CDT [facility] Albumin Urine Unable to 0 - 25 04/10/2019 [facility] mg/g Cr calculate due mg/g Cr 11:11 AM CDT [place] to low value [facility] Specimen Anatomical Collection Method Collection Time Receive d Time (Source) Location / / Volume Laterality Urine specimen 04/10/2019 10:23 9 (specimen) AM CDT 10:28 AM CDT Anh Costa APRN MECHANICAL DESIGN DRAFTER LAB - URINE ORDERABLES Performing Organization Address City/State/ZIP Code Phon e Number [address] [phone] [facility] ALT (04/10/2019 7:55 AM CDT) P athologist Signature ALT 29 0 - 50 U/L 04/10/2019 [facility] 3:38 PM CDT [facility] Specimen Anatomical Collection Method Collection Time Receive d Time (Source) Location / / Volume Laterality 04/10/2019 7:55 AM 9 7:56 CDT AM CDT Anh Costa APRN, CNP LAB - BLOOD ORDERABLES Performing Organization Address City/[facility]/ZIP Code Phon e Number [address] [phone] [facility] Albumin level (04/10/2019 7:55 AM CDT) P athologist Signature Albumin 4.0 3.4 - 5.0 04/10/2019 [facility] g/dL 3:38 PM CDT [facility] Specimen Anatomical Collection Method Collection Time Receive d Time (Source) Location / / Volume Laterality 04/10/2019 7:55 AM 9 7:56 CDT AM CDT Anh Costa APRN, CNP LAB - BLOOD ORDERABLES Performing Organization Address City/[facility]/ZIP Code Phon e Number [address] [address] [facility] Lipid panel reflex to direct LDL Fasting (04/10/2019 7:55 AM CDT) P athologist Signature Cholesterol 132 <200 mg/dL 04/10/2019 [facility] 8:26 AM CDT [facility] Triglycerides 54 <150 mg/dL 04/13/2019 [facility] 10:01 AM CDT [facility] Comment: Fasting specimen Fasting specimen CORRECTED ON 04/13 AT 1001: PREVIOUSLY R EPORTED 54 Non Fasting HDL Cholesterol 78 >49 mg/dL 04/10/2019 8:31 AM CDT [facility] LDL Cholesterol 43 <100 mg/dL 04/13/2019 10:01 AM UNI [facility] Calculated CDT [facility] Comment: Desirable: ? <100 mg/dl CORRECTED ON 04/13 AT 1001: PREVIOUSLY R EPORTED 44 Desirable: ? <100 mg/dl Non HDL Cholesterol 54 <130 mg/dL 04/10/2019 8:31 AM CDT [facility] Specimen Anatomical Collection Method Collection Time Receive d Time (Source) Location / / Volume Laterality Blood specimen 04/10/2019 7:55 AM 019 7:56 (specimen) CDT AM CDT Anh Costa APRN, CNP LAB - BLOOD ORDERABLES Performing Organization Address City/[facility]/ZIP Code Phon e Number [facility] [address] [place] [phone] [facility] CRP cardiac risk (04/10/2019 7:55 AM CDT) P athologist Signature CRP Cardiac 0.9 mg/L 04/10/2019 [facility] Risk 11:51 AM CDT [facility] Comment: Reference Values: Low Risk: ? <1.0 mg/L Average Risk: ? 1.0-3.0 mg/L High Risk: ?>3.0 mg/L Acute Inflammation: >8.0 mg/L Specimen Anatomical Collection Method Collection Time Receive d Time (Source) Location / / Volume Laterality Blood specimen 04/10/2019 7:55 AM 019 7:56 (specimen) CDT AM CDT Anh Costa APRN, CNP LAB - BLOOD ORDERABLES Performing Organization Address City/[facility]/ZIP Code Phon e Number [facility] [address] [place] [address] [facility] Glucose (04/10/2019 7:55 AM CDT) P athologist Signature Glucose 96 70 - 99 04/13/2019 [facility] mg/dL 10:01 AM CDT [facility] Comment: Fasting specimen Fasting specimen CORRECTED ON 04/13 AT 1001: PREVIOUSLY R EPORTED 96 Non Fasting Specimen Anatomical Collection Method Collection Time Receive d Time (Source) Location / / Volume Laterality Blood specimen 04/10/2019 7:55 AM 019 7:56 (specimen) CDT AM CDT Anh Costa APRN, CNP LAB - BLOOD ORDERABLES Performing Organization Address City/[facility]/ZIP Code Phon e Number [facility] [address] [place] [phone] [facility] documented in this encounter Visit Diagnoses Diagnosis Essential hypertension Unspecified essential hypertension Hyperlipidemia, unspecified hyperlipidem ia type documented in this encounter Additional Health Concerns Assessment Noted Time PHQ-9 Depression Total Score: 1 03/30/2018 7:10 AM CDT documented as of this encounter Care Teams Photographer Finish Relationship Specialty Start Date End Date Lisseth Vang MD PCP - General 04/13/16 11/14/[address] [place], [place] [address] Carlota Landeros MD MD Urology 04/10/[address] [place], [place] [address] Lisseth Vang MD PCP Family Practice 03/30/16 11/14/[address] [place], [place] [address] Michelle Montana, MODESTA Registered Nurse Urology 05/07/17 Anh Costa APRN MECHANICAL DESIGN DRAFTER Nurse Practitioner Nurse Practitioner 10/07 Martinez Galicia MD MD Ophthalmology 04/18/18 [address] [place], [place] [address] Sabino Romano DPM MD Podiatry 08/11/[address] [place] [phone] documented as of this encounter
--- OUTSIDE RECORDS SUMMARY | 2022-07-30 20:05 | XMS_ITS | Encounter Summary ---
:1945 Author Organization [facility] Address [address] [place] [address]. [place] [address] Care Team Providers Name Role Phone Lisseth Vang MD Primary Care Provider Carlota Landeros MD Unavailable Lisseth Vang MD Unavailable Michelle Montana RN Unavailable Anh Costa APRN MECHANICAL MAINTENANCE INSTRUCTOR Unavailable Unavailable Martinez Galicia MD Unavailable Sabino Romano DPM Unavailable Reason for Visit Reason Onset Date Comments Clinic Care Coordination - Follow-up 08/24/2018 Ros uvastatin Prescription Encounter Details Date Type Department Care Team Description 08/24/2018 Telephone [facility] Damian Villanueva Clini [facility] Mateo OLIVEROS Coordination - [address] [place] [address] Follow-up (Rosuvastatin [place], [place] [address] Prescription) [phone] [place], [place] [phone] [address] (Wo rk) Social History Tobacco Use [...] current plan and denied any further questions. TENANCE SUPERVISOR MECHANICAL Telephone Encounter - Zonia Morrissey LPN - 08/24/2018 10:44 AM CST ----- Message from Damian Villanueva MD sent at 08/11/2018 11:25 PM MAINTENANCE SUPERVISOR MECHANICAL ----- Regarding: FW: change atorvastatin 10 to crestor 5 No problem Thanks DD ----- Message ----- From: Anh Costa APRN [facility] Sent: 08/11/2018 1:41 PM To: Damian Villanueva MD Subject: change atorvastatin [address] Villanueva: pharmacist told her less tinnitus possible with crestor 5 mg. Do you care if we change? Thanks Anh TENANCE SUPERVISOR MECHANICAL documented in this encounter Plan of Treatment Upcoming Encounters Date Type Specialty Care Team Description 09/10/2022 Office Visit Internal Medicine Margot Branham MD [address] [place] [phone] (Wo rk) documented as of this encounter Visit Diagnoses Diagnosis Hyperlipidemia LDL goal <100 - Primary Other and unspecified hyperlipidemia documented in this encounter Additional Health Concerns Assessment Noted Time PHQ-9 Depression Total Score: 1 03/30/2018 7:10 AM CDT documented as of this encounter Care Teams Cook Helper Relationship Specialty Start Date End Date Lisseth Vang MD PCP - General 04/13/16 11/14/[address] [facility] [address] [place], [place] [address] Carlota Landeros MD MD Urology 04/10/[address] [place] [address] Lisseth Vang MD PCP Family Practice 03/30/16 11/14/[address] [place] [address] Michelle Montana, MODESTA Registered Nurse Urology 05/07/17 Anh Costa APRN MECHANICAL MAINTENANCE INSTRUCTOR Nurse Practitioner Nurse Practitioner 10/07 Martinez Galicia MD MD Ophthalmology 04/18/18 420 [place] [address] Sabino Romano DPM MD Podiatry 08/11/[address] [place] [phone] documented as of this encounter
--- OUTSIDE RECORDS SUMMARY | 2022-07-30 20:05 | XMS_ITS | Encounter Summary ---
:1945 Author Organization [facility] Address [address] [place] [address]. [place] [address] Care Team Providers Name Role Phone Lissteh Vang MD Primary Care Provider Carlota Landeros MD Unavailable Lisseth Vang MD Unavailable Michelle Montana RN Unavailable Anh Costa APRN BREAKFAST COOK Unavailable Unavailable Martinez Galicia MD Unavailable Sabino Romano DPM Unavailable Reason for Visit Reason Comments Sleep Study Follow up psg Encounter Details Date Type Department Care Team Description 08/12/2018 Office Visit [facility] Agus Wu MD Sleep disturbance [facility] [address] (Primary Dx) [address] [address] [place] [address] [place] [address] (Work) [phone] Social History Tobacco Use Types Packs/Day Years [...] Comments Blood Pressure 128/77 08/12/2018 11:44 AM ACCURACY EXPERT Pulse 63 08/12/2018 11:44 AM ACCURACY EXPERT Temperature 36.7 ??C (98 ??F) 08/12/2018 11:43 AM ACCURACY EXPERT Respiratory Rate 16 08/12/2018 11:43 AM ACCURACY EXPERT Oxygen Saturation 96% 08/12/2018 11:44 AM ACCURACY EXPERT Inhaled Oxygen Concentration - - Weight 69.9 kg (154 lb) 08/12/2018 11:43 AM ACCURACY EXPERT Height 168.9 cm (5' 6.5) 08/12/2018 11:43 AM ACCURACY EXPERT Body Mass Index 24.48 08/12/2018 11:43 AM ACCURACY EXPERT documented in this encounter Patient Instructions Patient [...] is considered obese. More than two-thirds of [place] adults are considered overweight or obese. Being [...] employer, local community center, or [employer]. RACY EXPERT documented in this encounter Progress Notes Agus Wu MD - 08/12/2018 11:30 AM CST Sleep Study Follow-Up Visit: Date on this visit: 08/12/2018 Yamileth Sheikh comes in today for follow-up of her sleep study done on 06/19/2018 at the [facility] for possible sleep apnea. [...] with patient, all of which were spent [id number] counseling, consulting, coordinating plan of care. Dr. Agus Wu CC: Lisseth Vang RACY EXPERT documented in this encounter Nursing Notes Leeann [...] (154 lb). Medication Reconciliation: nnamdi Torres MA RACY EXPERT documented in this encounter Plan of Treatment Upcoming Encounters Date Type Specialty Care Team Description 09/10/2022 Office Visit Internal Medicine LogMargot sadler MD [address] [place] [phone] (Wo rk) documented as of this encounter Visit Diagnoses Diagnosis Sleep disturbance - Primary Sleep disturbance, unspecified documented in this encounter Additional Health Concerns Assessment Noted Time PHQ-9 Depression Total Score: 1 03/30/2018 7:10 AM CDT documented as of this encounter Care Teams Tape Edge Machine Operator Relationship Specialty Start Date End Date Lisseth Vang MD PCP - General 04/13/16 11/14/[address] [place], [place] [address] Carlota Landeros MD MD Urology 04/10/[address] [place], [place] [address] Lisseth Vang MD PCP Family Practice 03/30/16 11/14/[address] [place], [place] [address] Michelle Montana, RN Registered Nurse Urology 05/07/17 Anh Costa APRN BREAKFAST COOK Nurse Practitioner Nurse Practitioner 10/07 Martinez Galicia MD MD Ophthalmology 04/18/18 420 [place] [address] Sabino Romano DPM MD Podiatry 08/11/[address] [place] [phone] documented as of this encounter
--- OUTSIDE RECORDS SUMMARY | 2022-07-30 20:05 | XMS_ITS | Encounter Summary ---
:1945 Author Organization [facility] Address [address] [place] [address]. [place] [address] Care Team Providers Name Role Phone Lisseth Vang MD Primary Care Provider Carlota Landeros MD Unavailable Lisseth Vang MD Unavailable Michelle Montana RN Unavailable Anh Costa APRN X RAY DEVELOPING MACHINE OPERATOR Unavailable Unavailable Martinez Galicia MD Unavailable Sabino Romano DPM Unavailable Encounter Details Date Type Department Care Team Description 02/22/[address] [facility] i, Nicolle , PT Urinary urgency; Gaston JAN PETTY PFD (pelvic floor dysfunction) [address] [facility] S out [address] [facility] [address] [place] [address] [place] [address] [phone] Social History Tobacco Use Types Packs/Day Years [...] Internal Medicine LogMargot sadler MD [address] [phone] (Wo rk) documented as of this encounter Procedures Procedure Name Priority Date/Time Associated Diagnosis Comme nts [facility] MANUAL THER Routine 02/22/2019 9:17 AM Urinary reten tion TECH,1+REGIONS,EA 15 MIN CDT Urinary urgency PFD (pelvic floor dysfunction) [facility] THERAPEUTIC Routine 02/22/2019 9:17 AM Urinary reten tion ACTIVITIES CDT Urinary urgency PFD (pelvic floor dysfunction) [facility] NEUROMUSCULAR Routine 02/22/2019 9:17 AM Urinary [...] documented as of this encounter Care Teams Order Booker Relationship Specialty Start Date End Date Lisseth Vang MD PCP - General 04/13/16 11/14/[address] [place], [place] [address] Carlota Landeros MD MD Urology 04/10/[address] [place] [address] Lisseth Vang MD PCP Family Practice 03/30/16 11/14/[address] [place] [address] Michelle Montana, MODESTA Registered Nurse Urology 05/07/17 Anh Costa APRN X RAY DEVELOPING MACHINE OPERATOR Nurse Practitioner Nurse Practitioner 10/07 Martinez Galicia MD MD Ophthalmology 04/18/18 [address] [place], [place] [address] Sabino Romano DPM MD Podiatry 08/11/[address] [place] [phone] documented as of this encounter
--- OUTSIDE RECORDS SUMMARY | 2022-07-30 20:05 | XMS_ITS | Encounter Summary ---
:1945 Author Organization [place] Address [address] [place] [address]. [place] [address] Care Team Providers Name Role Phone Lisseth Vang MD Primary Care Provider Carlota Landeros MD Unavailable Lisseth Vang MD Unavailable Michelle Montana RN Unavailable Anh Costa APRN INGOT WEIGHER Unavailable Unavailable Martinez Galicia MD Unavailable Sabino Romano DPM Unavailable Reason for Visit Reason Onset Date Comments New Onc Intake 12/14/2018 Internal Referral Encounter Details Date Type Department Care Team Description 12/14/2018 [facility] New Onc Intake [facility]E [place] (Internal Referral) [address] [place] [phone] Social History Tobacco Use Types Packs/Day Years [...] Visit Internal Medicine Margot Branham MD [address] [phone] (Wo rk) documented as of this encounter Visit Diagnoses Not on filedocumented in this encounter Additional Health Concerns Assessment Noted Time PHQ-9 Depression Total Score: 1 03/30/2018 7:10 AM CDT documented as of this encounter Care Teams Draw End Hand Relationship Specialty Start Date End Date Lisseth Vang MD PCP - General 04/13/16 11/14/[address] [place], [place] [address] Carlota Landeros MD MD Urology 04/10/[address] [place] [address] Lisseth Vang MD PCP Family Practice 03/30/16 11/14/[address] [place], [place] [address] Michelle Montana, MODESTA Registered Nurse Urology 05/07/17 Anh Costa APRN INGOT WEIGHER Nurse Practitioner Nurse Practitioner 10/07 Martinez Galicia MD MD Ophthalmology 04/18/18 420 [place], [place] [address] Sabino Romano DPM MD Podiatry 08/11/[address] [place] [phone] documented as of this encounter
--- OUTSIDE RECORDS SUMMARY | 2022-07-30 20:05 | XMS_ITS | Encounter Summary ---
:1945 Author Organization [place] Address [address] [place] [address]. [place] [address] Care Team Providers Name Role Phone Lisseth Vang MD Primary Care Provider Carlota Landeros MD Unavailable Lisseth Vang MD Unavailable Michelle Montana RN Unavailable Anh Costa APRN ELECTRICIAN BUS Unavailable Unavailable Martinez Galicia MD Unavailable Sabino [...] Visit Internal Medicine Margot Branham MD [address] [place] [address] (Wo rk) documented as of this encounter Visit Diagnoses Not on filedocumented in this encounter Additional Health Concerns Assessment Noted Time PHQ-9 Depression Total Score: 1 03/30/2018 7:10 AM CDT documented as of this encounter Care Teams Curriculum Advisory Teacher Relationship Specialty Start Date End Date Lisseth Vang MD PCP - General 04/13/16 11/14/[address] [place] [address] Carlota Landeros MD MD Urology 04/10/[address] [place], [place] [address] Lisseth Vang MD PCP Family Practice 03/30/16 11/14/[address] [place], [place] [phone] Michelle Montana, MODESTA Registered Nurse Urology 05/07/17 Anh Costa APRN ELECTRICIAN BUS Nurse Practitioner Nurse Practitioner 10/07 Martinez Galicia MD MD Ophthalmology 04/18/18 420 [place] [address] Sabino Romano DPM MD Podiatry 08/11/18 [facility] [address] [phone] documented as of this encounter
--- OUTSIDE RECORDS SUMMARY | 2022-07-30 20:05 | XMS_ITS | Encounter Summary ---
:1945 Author Organization [facility] Address [address] [place] [address]. [place] [address] Care Team Providers Name Role Phone Lisseth Vang MD Primary Care Provider Carlota Landeros MD Unavailable Lisseth Vang MD Unavailable Michelle Montana RN Unavailable Anh Costa APRN CANAL EQUIPMENT MECHANIC Unavailable Unavailable Martinez Galicia MD Unavailable Sabino Romano DPM Unavailable Reason for Referral JAN Physical Therapy - Closed Specialty Diagnoses / Procedures Referred By Contact Refer red To Contact Diagnoses [place] [address] [place], [place] [address] Referral ID Status Reason Start Date Expiration Date Visits Requ ested Visits Authorized [id number] Closed 12/21/2018 12/21/2019 1 1 Encounter Details Date Type Department Care Team Description 12/21/2018 Orders Only [facility] Urology and Carlota Landeros U [facility] urgency Inst for Prostate and MD (Primary Dx) U[facility] [place] [address] [facility] [address] [place] [address] [phone] Social History Tobacco Use Types Packs/Day Years [...] Office Visit Internal Medicine Margot Branham MD [address] [place] [phone] (Wo rk) Scheduled Referrals Name Type Priority [...] documented as of this encounter Care Teams Rolling Mill Plugger Relationship Specialty Start Date End Date Lisseth Vang MD PCP - General 04/13/16 11/14/[address] [place], [place] [address] Carlota Landeros MD MD Urology 04/10/[address] [place], [place] [address] Lisseth Vang MD PCP Family Practice 03/30/16 11/14/[address] [place], [place] [address] Michelle Montana, MODESTA Registered Nurse Urology 05/07/17 Anh Costa APRN CANAL EQUIPMENT MECHANIC Nurse Practitioner Nurse Practitioner 10/07 Martinez Galicia MD MD Ophthalmology 04/18/[address] [place] [phone] Sabino Romano DPM MD Podiatry 08/11/18 [facility] [address] [phone] documented as of this encounter
--- OUTSIDE RECORDS SUMMARY | 2022-07-30 20:05 | XMS_ITS | Encounter Summary ---
:1945 Author Organization [place] Address [address] [place] [address]. [place] [address] Care Team Providers Name Role Phone Lisseth Vang MD Primary Care Provider Carlota Landeros MD Unavailable Lisseth Vang MD Unavailable Michelle Montana RN Unavailable Anh Costa APRN INSURANCE CASE MANAGER Unavailable Unavailable Martinez Galicia MD Unavailable Sabino Romano DPM Unavailable Reason for Visit Reason Comments RECHECK Encounter Details Date Type Department Care Team Description 09/22/2018 [facility] Visit [facility] Kendra Cali Nasal congestion Throat MD Laurita (Primary Dx) [address] [place] [address] [address] [place], [place] [id number] [phone] Social History Tobacco Use Types Packs/Day Years [...] Comments Blood Pressure 130/70 09/22/2018 9:51 AM RESERVATIONS MANAGER Pulse - - Temperature - - Respiratory Rate - - Oxygen Saturation - - Inhaled Oxygen Concentration - - Weight 68 kg (150 lb) 09/22/2018 9:51 AM RESERVATIONS MANAGER Height 168.9 cm (5' 6.5) 09/22/2018 9:51 AM RESERVATIONS MANAGER Body Mass Index 23.85 09/22/2018 9:51 AM RESERVATIONS MANAGER documented in this encounter Progress Notes Kendra [...] I spent a total of 15 minutes [id number] with Yamileth Sheikh during today's office visit. Over50% of this time was spent counseling the patient on and/or coordinating care as documented in my assessment and plan. RVATIONS MANAGER documented in this encounter Nursing Notes Alonzo Butler EMT - 09/22/2018 9:45 AM CST Chief Complaint Patient presents with ??? RECHECK Luke Rosado RVATIONS MANAGER documented in this encounter Plan of Treatment Upcoming Encounters Date Type Specialty Care Team Description 09/10/2022 Office Visit Internal Medicine LogeaMargot man MD [address] [place] [phone] (Wo rk) documented as of this encounter Visit Diagnoses Diagnosis Nasal congestion - Primary Other diseases of nasal cavity and sinus es documented in this encounter Additional Health Concerns Assessment Noted Time PHQ-9 Depression Total Score: 1 03/30/2018 7:10 AM CDT documented as of this encounter Care Teams Technology Consultant Relationship Specialty Start Date End Date Lisseth Vang MD PCP - General 04/13/16 11/14/[address] [place], [place] [address] Carlota Landeros MD MD Urology 04/10/[address] [place] [address] Lisseth Vang MD PCP Family Practice 03/30/16 11/14/[address] [place], [place] [address] Michelle Montana, RN Registered Nurse Urology 05/07/17 Anh Costa APRN INSURANCE CASE MANAGER Nurse Practitioner Nurse Practitioner 10/07 Martinez Galicia MD MD Ophthalmology 04/18/18 420 [place], [place] [address] Sabino Romano DPM MD Podiatry 08/11/[address] [place] [phone] documented as of this encounter
--- OUTSIDE RECORDS SUMMARY | 2022-07-30 20:05 | XMS_ITS | Encounter Summary ---
:1945 Author Organization [place] Address [address] [place] [address]. [place] [address] Care Team Providers Name Role Phone Lisseth Vang MD Primary Care Provider Carlota Landeros MD Unavailable Lisseth Vang MD Unavailable Michelle Montana RN Unavailable Anh Costa APRN WEIGHT LOSS CENTRE MANAGER Unavailable Unavailable Martinez Galicia MD Unavailable Sabino Romano DPM Unavailable Kyle Roberts MD Primary Care Provider Mehreen Johnston MD PhD Unavailable [phone] LogeaMargot man MD Unavailable Martinez Galicia MD Unavailable LogMargot sadler MD Unavailable LogMargot sadler MD Primary Care Provider Levy Hussein MD Unavailable Alonso Tejeda MD Unavailable Reason for Visit Reason Onset Date Comments Appointment 10/06/2018 Patient is calling sukh lopez appointment on 10/20 for the procedure Encounter Details Date Type Department Care Team Description 10/06/2018 Telephone [facility] Ear Nose and HsKendra wetzel Appointment (Patient Throat MD Laurita is calling regarding 9 [facility] [address] appointment on 10/20 [address] [place] [address] for the procedure ) [place], [place] [phone] (Wo rk) [phone] Social History Tobacco Use Types Packs/Day Years Used Date Smoking Tobacco: Never Smokeless Tobacco: Never Alcohol Use Standard Drinks/Week Comments Yes 0 (1 standard drink = 0.6 oz pure alcoho l) wine few times/wk Sex Assigned at Date Recorded Female 12/20/2018 4:10 PM CDT documented as of this encounter Miscellaneous Notes Telephone Encounter - Colleen Hernandez - 10/06/2018 2:33 PM CST [facility] Call Center Phone Message May a [...] to: [facility] ent CH HISTORY PROFESSOR documented in this encounter Plan of Treatment Upcoming Encounters Date Type Specialty Care Team Description 09/10/2022 Office Visit Internal Medicine Margot Branham MD [address] [phone] (Wo rk) documented as of this encounter Visit Diagnoses Not on filedocumented in this encounter Additional Health Concerns Assessment Noted Time PHQ-9 Depression Total Score: 1 03/30/2018 7:10 AM CDT documented as of this encounter Care Teams Elementary School Teacher Relationship Specialty Start Date End Date Lisseth Vang PCP - General 04/13/16 11/14/[address] [place], [place] [phone] Kyle Roberts MD PCP - General Family Practice 11/15/19 10/27/[address] [place], [place] [phone] Margot Branham MD PCP - General Internal Medicine 10/28/[address] [place] [address] Carlota Landeros MD MD Urology 04/10/[address] [place], [place] [address] Lisseth Vang, JAMAR Family Practice 03/30/[address] [place], [place] [address] Michelle Montana, RN Registered Nurse Urology 05/07/17 Anh Costa APRN Nurse Practitioner Nurse Practitioner 10/07/17 WEIGHT LOSS CENTRE MANAGER Martinez Galicia MD Ophthalmology 04/18/[address] [place] [address] [phone] Sabino Romano DPM MD Podiatry 08/11/18 [facility] [address] [phone] Mehreen Johnston MD Family Practice 11/15/19 MD PhD [address] [place] [address] [phone] Margot Branham MD MD Internal Medicine 04/17/[address] [place] [address] [phone] Martinez Galicia, Assigned Surgical 07/26/20 MD Provider [address] [place] [address] [phone] Margot Branham MD Assigned PCP 09/15/[address] [address] Levy Hussein MD Assigned Surgical 03/23/21 06/14/21 9 [facility] Provider [place], [place] [address] Alonso Tejeda MD MD Internal Medicine 06/19/[address] [place] [address] documented as of this encounter
--- OUTSIDE RECORDS SUMMARY | 2022-07-30 20:06 | XMS_ITS | Encounter Summary ---
:1945 Author Organization [place] Address [address] [place] [address]. [place] [address] Care Team Providers Name Role Phone Lisseth Vang MD Primary Care Provider Carlota Landeros MD Unavailable Lisseth Vang MD Unavailable Michelle Montana RN Unavailable Anh Costa APRN FOOD TASTER Unavailable Unavailable Martinez Galicia MD Unavailable Encounter Details Date Type Department Care Team Description 07/25/2018 Surgery [facility] Surgery and Martinez Galicia Phacoemulsification Procedure Center MD Lili with Intraocular Lens [address] [place] [phone] Surgery Details Date/Time Status Location OR Service [...] Mcknight RN - 07/25/2018 10:25 AM CDT [facility] Home [...] appointment with your doctor tomorrow at the [facility] ([phone]). Bring all your prescribed eye drops with you to this follow-up appointment. ??? If you take glaucoma medications, bring them with you to your follow-up appointment tomorrow. ??? Use medication exactly as prescribed by your doctor. You may restart your regular home medications. ??? Call your doctor???s office at [phone] if any of the following should occur: - Any sudden vision changes, including decreased vision - Nausea or severe headache - Increase in pain that is not controlled with Acetaminophen (Tylenol) or Ibuprofen (Advil) - Signs of infection (pus, increasing redness or tenderness) - Severe sensitivity to light - An increase in floaters (black spots in front of your vision) [facility] Home [...] Your doctor is: Dr. Martinez Galicia, Ophthalmology: [phone] Or dial [phone] and ask for the resident industrial economics professor for: Ophthalmology For emergency care, call the: [facility]: [phone] (TTY for hearing impaired: [phone]) documented in this encounter Medications at Time [...] Hyperlipidemia, unspecified hyperlipidemia type azelastine (ASTELIN) 0.1 [place] 2 sprays into 90 mL 11 08/12/2018 [...] 2 times daily capsule fluticasone (FLONASE) 50 [place] 2 sprays into 1 Bottle 11 08/12/2018 [...] times daily creamIndications: External hemorrhoids ipratropium (ATROVENT) [place] 2 sprays into 1 Box 11/201710/10/2018 0.06 [...] implant Left eye. SURGEON: Martinez Galicia M.D. Fuel Quality Tech: Ermias Russell MD INDICATIONS: The patient Yamileth [...] Implant Name Type Inv. Item Serial No. Agricultural Systems Specialist Lot No. LRB No. Used EYE IMP IOL CHALO PCL TECNIS [id number] 21.5 Lens/Eye Implant EYE IMP IOL CHALO PCL TECNIS [id number] 21.5 [id number] ADVANCED MEDICAL OPT Left 1 Attending Physician Procedure Attestation: I was present for the entire procedure Martinez Galicia MD Campus Rep, Comprehensive Ophthalmology Department of Ophthalmology and Visual Neurosciences [facility] documented in this encounter Plan of Treatment Upcoming Encounters Date Type Specialty Care Team Description 09/10/2022 Office Visit Internal Medicine LogeaisMargot MD [address] [place] [address] (Wo rk) documented as of this encounter [...] PRN, Starting on Wed07/25/18 at 1015, Intra-procedure [id number] (MAXITROL) Given 07/25/2018 10: 16 AM 1 [...] documented as of this encounter Care Teams Refrigeration Engineer Relationship Specialty Start Date End Date Lisseth Vang MD PCP - General 04/13/16 11/14/[address] [place], [place] [address] Carlota Landeros MD MD Urology 04/10/[address] [place], [place] [address] Lisseth Vang MD PCP Family Practice 03/30/16 11/14/[address] [place], [place] [address] Michelle Montana, RN Registered Nurse Urology 05/07/17 Anh Costa APRN FOOD TASTER Nurse Practitioner Nurse Practitioner 10/07 Martinez Galicia MD MD Ophthalmology 04/18/[address] [place] [address] documented as of this encounter
--- OUTSIDE RECORDS SUMMARY | 2022-07-30 20:06 | XMS_ITS | Encounter Summary ---
:1945 Author Organization [facility] Address [address] [place] [address]. [place] [address] Care Team Providers Name Role Phone Lisseth Vang MD Primary Care Provider Carlota Landeros MD Unavailable Lisseth Vang MD Unavailable Michelle Montana RN Unavailable Anh Costa APRN DIRECTOR LAW ENFORCEMENT Unavailable Unavailable Martinez Galicia MD Unavailable Reason for Visit Reason Onset Date Comments Previsit 07/18/2018 Referral in EPIC Encounter Details Date Type Department Care Team Description 07/18/2018 PRE VISIT [facility] Saulo Hillman Previs it (Referral in [facility] EPIC) [facility] [place] [phone] [place], [place] [phone] (Wo rk) Social History Tobacco Use Types [...] 07.18.18 ?? Time: 12:15 PM ?? Location: [facility] REFERRAL INFORMATION: ?? Referring provider: [...] Visit Internal Medicine Margot Branham MD [address] [address] (Wo rk) documented as of this encounter Visit Diagnoses Not on filedocumented in this encounter Additional Health Concerns Assessment Noted Time PHQ-9 Depression Total Score: 1 03/30/2018 7:10 AM CDT documented as of this encounter Care Teams Global Recruiter Relationship Specialty Start Date End Date Lisseth Vang MD PCP - General 04/13/16 11/14/[address] [place] [address] Carlota Landeros MD MD Urology 04/10/[address] [place], [place] [address] Lisseth Vang MD PCP Family Practice 03/30/16 11/14/[address] [place], [place] [address] Michelle Montana, MODESTA Registered Nurse Urology 05/07/17 Anh Costa APRN DIRECTOR LAW ENFORCEMENT Nurse Practitioner Nurse Practitioner 10/07 Martinez Galicia MD MD Ophthalmology 04/18/18 [address] [place], [place] [address] documented as of this encounter
--- OUTSIDE RECORDS SUMMARY | 2022-07-30 20:06 | XMS_ITS | Encounter Summary ---
:1945 Author Organization [place] Address [address] [place] [address]. [place] [address] Care Team Providers Name Role Phone Lisseth Vang MD Primary Care Provider Carlota Landeros MD Unavailable Lisseth Vang MD Unavailable Michelle Montana RN Unavailable Anh Costa APRN WELDING EQUIPMENT REPAIRER Unavailable Unavailable Martinez Galicia MD Unavailable Reason for Visit Reason Comments Post Op (Ophthalmology) Right Eye Right Eye Phacoemuls ification with Intraocular Lens 07/18/18 Encounter Details Date Type Department Care Team Description 07/18/2018 Office Visit [facility] Martinez Galicia Pseudophakia - Right Eye (Primary Dx); Ophthalmology MD Lili Pseudophakia [address] [place], [place] [phone] Social History Tobacco Use Types Packs/Day [...] Visit Internal Medicine Margot Branham MD [address] [place] [address] [phone] (Wo rk) documented as of this encounter Visit Diagnoses Diagnosis Pseudophakia - Right Eye - Primary Lens replaced by other means documented in this encounter Additional Health Concerns Assessment Noted Time PHQ-9 Depression Total Score: 1 03/30/2018 7:10 AM CDT documented as of this encounter Care Teams Firearms Model Maker Relationship Specialty Start Date End Date Lisseth Vang MD PCP - General 04/13/16 11/14/[address] [place] [address] Carlota Landeros MD MD Urology 04/10/[address] [place], [place] [phone] Lisseth Vang MD PCP Family Practice 03/30/16 11/14/[address] [place] [address] Michelle Montana, MODESTA Registered Nurse Urology 05/07/17 Anh Costa APRN WELDING EQUIPMENT REPAIRER Nurse Practitioner Nurse Practitioner 10/07 Martinez Galicia MD MD Ophthalmology 04/18/[address] [place] [phone] documented as of this encounter
--- OUTSIDE RECORDS SUMMARY | 2022-07-30 20:06 | XMS_ITS | Encounter Summary ---
:1945 Author Organization [place] Address [address] [place] [address]. [place] [address] Care Team Providers Name Role Phone Lisseth Vang MD Primary Care Provider Carlota Landeros MD Unavailable Lisseth Vang MD Unavailable Michelle Montana RN Unavailable Anh Costa APRN MANAGER COMPETITIVE INTELLIGENCE Unavailable Unavailable Martinez Galicia MD Unavailable Reason for Visit Reason Comments Post Op (Ophthalmology) Left Eye CE/IOL 07-25-18 Encounter Details Date Type Department Care Team Description 07/25/2018 Office Visit [facility] Martinez Galicia Postoperative eye state (Primary Dx); Ophthalmology MD Lili Nuclear sclerotic cataract of both eyes [address] [phone] Social History Tobacco Use Types Packs/Day [...] at 1:42 PM Opthalmology Resident, PGY-2 Pager: [phone] Attending Physician Attestation: Complete documentation of historical [...] MD 909 [facility] 4TH [place] [address] (Wo rk) documented as of this encounter Visit Diagnoses Diagnosis Postoperative eye state - Primary Other states following surgery of eye an d adnexa 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 documented in this encounter Additional Health Concerns Assessment Noted Time PHQ-9 Depression Total Score: 1 03/30/2018 7:10 AM CDT documented as of this encounter Care Teams Bag Shop Worker Relationship Specialty Start Date End Date Lisseth Vang MD PCP - General 04/13/16 11/14/[address] [place], [place] [address] Carlota Landeros MD MD Urology 04/10/[address] [place], [place] [address] Lisseth Vang MD PCP Family Practice 03/30/16 11/14/[address] [place], [place] [address] Michelle Montana, MODESTA Registered Nurse Urology 05/07/17 Anh Costa APRN MANAGER COMPETITIVE INTELLIGENCE Nurse Practitioner Nurse Practitioner 10/07 Martinez Galicia MD MD Ophthalmology 04/18/18 420 [place], [place] [address] documented as of this encounter
--- OUTSIDE RECORDS SUMMARY | 2022-07-30 20:06 | XMS_ITS | Encounter Summary ---
:1945 Author Organization [place] Address [address] [place] [address]. [place] [address] Care Team Providers Name Role Phone Lisseth Vang MD Primary Care Provider Carlota Landeros MD Unavailable Lisseth Vang MD Unavailable Michelle Montana RN Unavailable Anh Costa APRN NURSE PRACTITIONER ADULT Unavailable Unavailable Martinez Galicia MD Unavailable Reason for Visit Reason Onset Date Comments Patient Request 07/27/2018 post op symptoms Encounter Details Date Type Department Care Team Description 07/27/2018 Telephone [facility] Martinez Galicia Patient Request (post [address] MD Lili op symptoms) [address] [place] [phone] (Wo rk) Social History Tobacco Use Types [...] Elda Rodriguez - 07/27/2018 3:08 PM CDT [facility] Call Center Phone Message May a [...] Visit Internal Medicine LogeaMargot man MD [address] [phone] (Wo rk) documented as of this encounter Visit Diagnoses Not on filedocumented in this encounter Additional Health Concerns Assessment Noted Time PHQ-9 Depression Total Score: 1 03/30/2018 7:10 AM CDT documented as of this encounter Care Teams Manager Sales Support Relationship Specialty Start Date End Date Lisseth Vang MD PCP - General 04/13/16 11/14/[address] [place], [place] [address] Carlota Landeros MD MD Urology 04/10/[address] [place], [place] [address] Lisseth Vang MD PCP Family Practice 03/30/16 11/14/[address] [place] [address] Michelle Montana, MODESTA Registered Nurse Urology 05/07/17 Anh Costa APRN NURSE PRACTITIONER ADULT Nurse Practitioner Nurse Practitioner 10/07 Martinez Galicia MD MD Ophthalmology 04/18/[address] [place] [address] documented as of this encounter
--- OUTSIDE RECORDS SUMMARY | 2022-07-30 20:06 | XMS_ITS | Encounter Summary ---
:1945 Author Organization [place] Address [address] [place] [address]. [place] [address] Care Team Providers Name Role Phone Lisseth Vang MD Primary Care Provider Carlota Landeros MD Unavailable Lisseth Vang MD Unavailable Michelle Montana RN Unavailable Anh Costa APRN GRIP Unavailable Unavailable Martinez Galicia MD Unavailable Encounter Details Date Type Department Care Team Description 07/18/2018 Hospital [facility] Martinez Galicia Nucl ear sclerotic and Procedure MD Lili cataract of both [address] eyes (Primary Dx) 909 [place], [place] 5th Floor [address] [place], [place] [phone] [address] (Work) [phone] Social History Tobacco Use Types Packs/Day Years [...] Ochoa RN - 07/18/2018 8:56 AM CDT [facility] Home [...] appointment with your doctor tomorrow at the [facility] ([phone]). Bring all your prescribed eye drops with you to this follow-up appointment. ??? If you take glaucoma medications, bring them with you to your follow-up appointment tomorrow. ??? Use medication exactly as prescribed by your doctor. You may restart your regular home medications. ??? Call your doctor???s office at [phone] if any of the following should occur: - Any sudden vision changes, including decreased vision - Nausea or severe headache - Increase in pain that is not controlled with Acetaminophen (Tylenol) or Ibuprofen (Advil) - Signs of infection (pus, increasing redness or tenderness) - Severe sensitivity to light An increase in floaters (black spots in front of your vision)[facility] Scopolamine [...] at least 24 hours after you leave [facility]. Do not drive or use heavy [...] Your doctor is: Dr. Martinez Galicia, Ophthalmology: [phone] Or dial [phone] and ask for the resident product operations associate for: Ophthalmology For emergency care, call the: [facility]: [phone] (TTY for hearing impaired: [phone]) - documented in this encounter Medications at [...] Hyperlipidemia, unspecified hyperlipidemia type azelastine (ASTELIN) 0.1 [place] 2 sprays into 90 mL 11 08/12/2018 [...] 2 times daily capsule fluticasone (FLONASE) 50 [place] 2 sprays into 1 Bottle 11 08/12/2018 [...] times daily creamIndications: External hemorrhoids ipratropium (ATROVENT) [place] 2 sprays into 1 Box 11/201710/10/2018 0.06 [...] implant Right eye. SURGEON: Martinez Galicia M.D. Contract Accountant: Ermias Russell MD INDICATIONS: The patient Yamileth [...] Implant Name Type Inv. Item Serial No. Reed Cleaner Lot No. LRB No. Used EYE IMP IOL CHALO PCL TECNIS [id number] 20.0 Lens/Eye Implant EYE IMP IOL CHALO PCL TECNIS [id number] 20.0 [id number] ADVANCED MEDICAL OPT Right 1 Attending Physician Procedure Attestation: I was present for the entire procedure Martinez Galicia MD Food And Beverage Operations Manager, Comprehensive Ophthalmology Department of Ophthalmology and Visual Neurosciences [facility] documented in this encounter Plan of Treatment Upcoming Encounters Date Type Specialty Care Team Description 09/10/2022 Office Visit Internal Medicine LogeaisMargot MD [address] [address] (Wo rk) documented as of this encounter [...] documented as of this encounter Care Teams It Technical Architect Relationship Specialty Start Date End Date Lisseth Vang MD PCP - General 04/13/16 11/14/[address] [place], [place] [address] Carlota Landeros MD MD Urology 04/10/[address] [place], [place] [address] Lisseth Vang MD PCP Family Practice 03/30/16 11/14/[address] [place], [place] [address] Michelle Montana, MODESTA Registered Nurse Urology 05/07/17 Anh Costa APRN GRIP Nurse Practitioner Nurse Practitioner 10/07 Martinez Galicia MD MD Ophthalmology 04/18/18 420 [place], [place] [address] documented as of this encounter
--- OUTSIDE RECORDS SUMMARY | 2022-07-30 20:06 | XMS_ITS | Encounter Summary ---
:1945 Author Organization [place] Address [address] [facility] [place] [address] Care Team Providers Name Role Phone Lisseth Vang MD Primary Care Provider Carlota Acuña MD Unavailable Lisseth Vang MD Unavailable Michelle Montana RN Unavailable Anh Costa APRN TRAVELIFT OPERATOR Unavailable Unavailable Martinez Galicia MD Unavailable Reason for Visit Reason Comments Pre-Op Exam Encounter Details Date Type Department Care Team Description 07/07/2018 Office Visit [facility] [address]; [facility] MD Lisseth Screen for colon cancer; [place] [address] Atrophic vaginitis; [place] [facility] [address] Recurrent cold sores; [facility] [place], [place] Seasonal allergies; 3RD FLR,[address] [address] Chronic rhinitis; [address] [phone] Vitamin D deficiency [facility] [address] (Work) [place], [place] [address] [phone] Social History Tobacco Use Types Packs/Day Years [...] 07/18/2018; Left eye 07/25/2018 Location of Surgery: [facility] Fax number for pre-op form: Fax: [facility] [phone] Chief Complaint: Progressive loss of vision and [...] - [Advocate is daughter in law] 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 Has uterine fibroids [[place]]. PAST MEDICAL HISTORY: Past Medical History: Diagnosis [...] eye 07/18/2018 and Left eye 07/25/2018 at [facility]. - Hold on ASA and fish oil [...] Visit Internal Medicine Margot Branham MD [address] [address] (Wo rk) documented as of this encounter [...] as of this encounter Care Teams Senior Principal Relationship Specialty Start Date End Date Lisseth Vang MD PCP - General 04/13/16 11/14/[address] [place], [place] [phone] Carlota Acuña MD MD Urology 04/10/[address] [place] [address] Lisseth Vang MD PCP Family Practice 03/30/16 11/14/[address] [place] [address] Michelle Montana, RN Registered Nurse Urology 05/07/17 Anh Costa APRN TRAVELIFT OPERATOR Nurse Practitioner Nurse Practitioner 10/07 Martinez Galicia MD MD Ophthalmology 04/18/[address] [place] [phone] documented as of this encounter
--- OUTSIDE RECORDS SUMMARY | 2022-07-30 20:06 | XMS_ITS | Encounter Summary ---
:1945 Author Organization [facility] Address [address] [place] [address]. [place] [address] Care Team Providers Name Role Phone Lisseth Vang MD Primary Care Provider Carlota Landeros MD Unavailable Lisseth Vang MD Unavailable Michelle Montana RN Unavailable Anh Costa APRN TIRE BUSTER Unavailable Unavailable Martinez Galicia MD Unavailable Encounter Details Date Type Department Care Team Description 07/25/2018 [facility] Martinez Galicia Nucl ear sclerotic and Procedure MD Lili cataract, left Center 420 [facility] (Primary Dx) 909 [facility] [address] [place], [place] 5th Floor [address] [place], [place] [phone] [address] (Work) [phone] Social History Tobacco Use Types Packs/Day Years [...] Mcknight RN - 07/25/2018 10:25 AM CDT [facility] Home [...] appointment with your doctor tomorrow at the [facility] ([phone]). Bring all your prescribed eye drops with you to this follow-up appointment. ??? If you take glaucoma medications, bring them with you to your follow-up appointment tomorrow. ??? Use medication exactly as prescribed by your doctor. You may restart your regular home medications. ??? Call your doctor???s office at [phone] if any of the following should occur: - Any sudden vision changes, including decreased vision - Nausea or severe headache - Increase in pain that is not controlled with Acetaminophen (Tylenol) or Ibuprofen (Advil) - Signs of infection (pus, increasing redness or tenderness) - Severe sensitivity to light - An increase in floaters (black spots in front of your vision) [facility] Home [...] Your doctor is: Dr. Martinez Galicia, Ophthalmology: [phone] Or dial [phone] and ask for the resident aboriginal education worker coordinator for: Ophthalmology For emergency care, call the: [facility]: [phone] (TTY for hearing impaired: [phone]) documented in this encounter Medications at Time [...] Hyperlipidemia, unspecified hyperlipidemia type azelastine (ASTELIN) 0.1 [place] 2 sprays into 90 mL 11 08/12/2018 [...] 2 times daily capsule fluticasone (FLONASE) 50 [place] 2 sprays into 1 Bottle 08/12/2018 MCG/ACT [...] times daily creamIndications: External hemorrhoids ipratropium (ATROVENT) [place] 2 sprays into 1 Box 11/2017/2019 0.06 [...] encounter Miscellaneous Notes Op Note - Martinez Glaicia MD - 07/25/2018 10:28 AM CDT PREOPERATIVE DIAGNOSIS: Visually significant cataract, Left eye POSTOPERATIVE DIAGNOSIS: Same PROCEDURES: 1. Cataract extraction with intraocular lens implant Left eye. SURGEON: Martinez Galicia M.D. Fingernail Technician: Ermias Russell MD INDICATIONS: The patient [...] Implant Name Type Inv. Item Serial No. Skimmer Reverberatory Lot No. LRB No. Used EYE IMP IOL CHALO PCL TECNIS [id number] 21.5 Lens/Eye Implant EYE IMP IOL CHALO PCL TECNIS ZCB00 21.5 [id number] ADVANCED MEDICAL OPT Left 1 Attending Physician Procedure Attestation: I was present for the entire procedure Martinez Galicia MD Dish Room Worker, Comprehensive Ophthalmology Department of Ophthalmology and Visual Neurosciences [facility] documented in this encounter Plan of Treatment Upcoming Encounters Date Type Specialty Care Team Description 09/10/2022 Office Visit Internal Medicine LogMargot sadler MD [address] [address] (Wo rk) documented as of this encounter [...] documented as of this encounter Care Teams Tmr Teacher Relationship Specialty Start Date End Date Lisseth Vang MD PCP - General 04/13/16 11/14/[address] [place], [place] [address] Carlota Landeros MD MD Urology 04/10/[address] [place], [place] [address] Lisseth Vang MD PCP Family Practice 03/30/16 11/14/[address] [place], [place] [address] Michelle Montana, RN Registered Nurse Urology 05/07/17 Anh Costa APRN TIRE BUSTER Nurse Practitioner Nurse Practitioner 10/07 Martinez Galicia MD MD Ophthalmology 04/18/[address] [place] [address] documented as of this encounter
--- OUTSIDE RECORDS SUMMARY | 2022-07-30 20:06 | XMS_ITS | Encounter Summary ---
:1945 Author Organization [facility] Address [address] [place] [address]. [place] [address] Care Team Providers Name Role Phone Lisseth Vang MD Primary Care Provider Carlota Landeros MD Unavailable Lisseth Vang MD Unavailable Michelle Montana RN Unavailable Anh Costa APRN TAPPER SUPERVISOR Unavailable Unavailable Martinez Galicia MD Unavailable Encounter Details Date Type Department Care Team Description 07/25/2018 Anesthesia Event [facility] and Perez Jesus MD [address] [place], [place] [address] Procedure Center Clyde Andrade MD [facility] [address] [facility] [address] [place] [address] 909 [facility] SE 5th [place] [address] Anesthesia Record Procedure Summary Procedure [...] Follow-Up: Not required Last Anesthesia Record Vitals: GRINDER NEEDLE TIP VITALS 07/25/2018 0954 - 07/25/2018 1054 07/25/2018 [...] Pre-Induction: Midazolam IV Induction: Not applicable Airway: [place] Airway Access/Monitoring: PIV Maintenance: N/a Emergence: N/a [...] Internal Medicine Margot Branham MD [address] [address] (Wo rk) documented as of this encounter [...] documented as of this encounter Care Teams Interactive Media Director Relationship Specialty Start Date End Date Lisseth Vang MD PCP - General 04/13/16 11/14/[address] [place], [place] [address] Carlota Landeros MD MD Urology 04/10/[address] [place] [address] Lisseth Vang MD PCP Family Practice 03/30/16 11/14/[address] [place] [address] Michelle Montana, MODESTA Registered Nurse Urology 05/07/17 Anh Costa APRN TAPPER SUPERVISOR Nurse Practitioner Nurse Practitioner 10/07 Martinez Galicia MD MD Ophthalmology 04/18/18 [address] [place] [address] documented as of this encounter
--- OUTSIDE RECORDS SUMMARY | 2022-07-30 20:06 | XMS_ITS | Encounter Summary ---
:1945 Author Organization [facility] Address [address] [place] [address]. [place] [address] Care Team Providers Name Role Phone Lisseth Vang MD Primary Care Provider Carlota Landeros MD Unavailable Lisseth Vang MD Unavailable Michelle Montana RN Unavailable Anh Costa APRN EDUCATION COURSES SALES REPRESENTATIVE Unavailable Unavailable Martinez Galicia MD Unavailable Encounter Details Date Type Department Care Team Description 07/18/2018 Surgery [facility] Surgery and Martinez Galicia Right Eye Procedure Center MD Lili Phacoemulsification with 9 [facility] SE 420 [facility] Intraocular Lens 5th [place] [phone] Surgery Details Date/Time Status Location OR Service [...] Ochoa RN - 07/18/2018 8:56 AM CDT [facility] Home [...] appointment with your doctor tomorrow at the [facility] ([phone]). Bring all your prescribed eye drops with you to this follow-up appointment. ??? If you take glaucoma medications, bring them with you to your follow-up appointment tomorrow. ??? Use medication exactly as prescribed by your doctor. You may restart your regular home medications. ??? Call your doctor???s office at [phone] if any of the following should occur: - Any sudden vision changes, including decreased vision - Nausea or severe headache - Increase in pain that is not controlled with Acetaminophen (Tylenol) or Ibuprofen (Advil) - Signs of infection (pus, increasing redness or tenderness) - Severe sensitivity to light An increase in floaters (black spots in front of your vision)[facility] Scopolamine [...] at least 24 hours after you leave [facility]. Do not drive or use heavy equipment. [...] Your doctor is: Dr. Martinez Galicia, Ophthalmology: [phone] Or dial [phone] and ask for the resident production honing machine operator for: Ophthalmology For emergency care, call the: [place] [facility]: [phone] (TTY for hearing impaired: [phone]) - documented in this encounter Medications at [...] Hyperlipidemia, unspecified hyperlipidemia type azelastine (ASTELIN) 0.1 [place] 2 sprays into 90 mL 11 08/12/2018 [...] 2 times daily capsule fluticasone (FLONASE) 50 [place] 2 sprays into 1 Bottle 08/12/2018 MCG/ACT [...] times daily creamIndications: External hemorrhoids ipratropium (ATROVENT) [place] 2 sprays into 1 Box 11/201710/10/2018 0.06 [...] implant Right eye. SURGEON: Martinez Galicia M.D. Machine Chocolate Molder: Ermias Russell MD INDICATIONS: The patient Yamileth [...] Implant Name Type Inv. Item Serial No. Degreasing Solution Reclaimer Lot No. LRB No. Used EYE IMP IOL CHALO PCL TECNIS [id number] 20.0 Lens/Eye Implant EYE IMP IOL CHALO PCL TECNIS ZCB00 20.0 [id number] ADVANCED MEDICAL OPT Right 1 Attending Physician Procedure Attestation: I was present for the entire procedure Martinez Galicia MD Protozoologist, Comprehensive Ophthalmology Department of Ophthalmology and Visual Neurosciences [facility] documented in this encounter Plan of Treatment Upcoming Encounters Date Type Specialty Care Team Description 09/10/2022 Office Visit Internal Medicine Margot Branham MD [address] [address] (Wo rk) documented as of this encounter [...] PRN, Starting on Wed07/18/18 at 0834, Intra-procedure ljwuurzf-hbmvilgkr-qmikqkypegxov (MAXITROL) Given 07/18/2018 8:3 4 AM 1 [...] documented as of this encounter Care Teams Soils Technician Relationship Specialty Start Date End Date Lisseth Vang MD PCP - General 04/13/16 11/14/[address] [place], [place] [address] Carlota Landeros MD MD Urology 04/10/[address] [place], [place] [address] Lisseth Vang MD PCP Family Practice 03/30/16 11/14/[address] [place], [place] [address] Michelle Montana RN Registered Nurse Urology 05/07/17 Anh Costa APRN EDUCATION COURSES SALES REPRESENTATIVE Nurse Practitioner Nurse Practitioner 10/07 Martinez Galicia MD MD Ophthalmology 04/18/18 420 [place], [place] [phone] documented as of this encounter
--- OUTSIDE RECORDS SUMMARY | 2022-07-30 20:06 | XMS_ITS | Encounter Summary ---
:1945 Author Organization [facility] Address [address] [place] [address] Care Team Providers Name Role Phone Lisseth Vang MD Primary Care Provider Carlota Landeros MD Unavailable Lisseth Vang MD Unavailable Michelle Mnotana RN Unavailable Anh Costa APRN FARM SUPERVISOR Unavailable Unavailable Martinez Galicia MD Unavailable Encounter Details Date Type Department Care Team Description 07/22/2018 Orders Only [facility] Lab Hyperlipidemia LDL goal <[address] [place] [address] Social History Tobacco Use Types Packs/Day [...] Visit Internal Medicine LogMargot sadler MD [address] [address] (Wo rk) documented as of this encounter Procedures Procedure Name Priority Date/Time Associated Diagnosis Comme nts LIPID REFLEX TO Routine 07/22/2018 9:22 AM Hyperlipidemia LDL goal Results for this DIRECT LDL PANEL CDT <100 procedure a re in the results section. documented in this encounter Results Lipid panel reflex to direct LDL Fasting (07/22/2018 9:22 AM CDT) [facility] Method Time Signature Cholesterol 127 <200 mg/dL 07/22/2018 [facility] 9:48 AM CDT [facility] Triglycerides 84 <150 mg/dL 07/22/2018 [facility] 9:48 AM CDT [facility] HDL Cholesterol 62 >49 mg/dL 07/22/2018 [facility] 9:48 AM CDT [facility] LDL Cholesterol 48 <100 mg/dL 07/22/2018 [facility] O F Calculated 9:48 AM CDT [facility] Comment: Desirable: <100 mg/dl Non HDL Cholesterol 65 <130 mg/dL 07/22/2018 9:48 AM CDT [facility] Specimen Anatomical Collection Method Collection Time Receive d Time (Source) Location / / Volume Laterality Blood specimen 07/22/2018 9:22 AM 018 9:23 (specimen) CDT AM CDT Anh Costa APRN FARM SUPERVISOR LAB - BLOOD ORDERABLES Performing Organization Address City/State/ZIP Code Phon e Number [address] [id number] [facility] documented in this encounter Visit Diagnoses Diagnosis Hyperlipidemia LDL goal <100 Other and unspecified hyperlipidemia documented in this encounter Additional Health Concerns Assessment Noted Time PHQ-9 Depression Total Score: 1 03/30/2018 7:10 AM CDT documented as of this encounter Care Teams Quality Assurance Supervisor Trim Relationship Specialty Start Date End Date Lisseth Vang MD PCP - General 04/13/16 11/14/[address] [place] [address] Carlota Landeros MD MD Urology 04/10/[address] [place], [place] [address] Lisseth Vang MD PCP Family Practice 03/30/16 11/14/[address] [place], [place] [phone] Michelle Montana, RN Registered Nurse Urology 05/07/17 Anh Costa APRN FARM SUPERVISOR Nurse Practitioner Nurse Practitioner 10/07 Martinez Galicia MD MD Ophthalmology 04/18/[address] [place] [phone] documented as of this encounter
--- OUTSIDE RECORDS SUMMARY | 2022-07-30 20:06 | XMS_ITS | Encounter Summary ---
:1945 Author Organization [facility] Address [address] [place] [address]. [place] [address] Care Team Providers Name Role Phone Lisseth Vang MD Primary Care Provider Carlota Landeros MD Unavailable Lisseth Vang MD Unavailable Michelle Montana RN Unavailable Anh Costa APRN ALARM OPERATOR Unavailable Unavailable Martinez Galicia MD Unavailable Reason for Visit Reason Comments Sleep Problem PSG (Routine) - Closed Specialty Diagnoses / Procedures Referred By Contact Refer red To Contact Sleep Medicine Procedures Sleep Center PSG SPLIT [address] [facility] [address] [place] [address] Phone: Referral ID Status Reason Start Date Expiration Date Visits Requ ested Visits Authorized [id number] Closed 06/19/2018 06/19/2019 1 1 Encounter Details Date Type Department Care Team Description 06/19/[address] [facility] Sleep Ess ential hypertension; [facility] Suspected sleep apnea; [address] [facility] Chronic fatigue [address] [place] [address] Social History Tobacco Use Types Packs/Day Years Used Date Smoking Tobacco: Never Smokeless Tobacco: Never Alcohol Use Standard Drinks/Week Comments Yes 0 (1 standard drink = 0.6 oz pure alcoho l) wine few times/wk Sex Assigned at Date Recorded Female 12/20/2018 4:10 PM CDT documented as of this encounter Procedure Notes Agus Wu MD - 06/19/2018 8:30 PM CDTAssociated Order(s): [facility] COMPREHENSIVE SLEEP Images from the original note were not included. SLEEP STUDY INTERPRETATION DIAGNOSTIC POLYSOMNOGRAPHY REPORT Patient: IMELDA GARCIA Date of : 1945 Study Date: 06/19/2018 Referring Provider: CLAUDIA Costa CNP, Lynn Gail Ordering Provider: MD Wu Rakesh Indications for Polysomnography: The patient is a 72 y old Female who is 5' 6 and weighs 170.0 lbs.Her BMI is 27.3, Hedrick sleepiness scale 4.0 and neck circumference is [...] Diagnostic Codes: Unspecified Sleep Disturbance G47.9 06/19/2018 [facility] Sleep Study (170.0 lbs) - AHI [...] Office Visit Internal Medicine LogeaisMargot MD [address] [address] (Wo rk) documented as of this encounter Procedures Procedure Name Priority Date/Time Associated Comments Diagnosis [facility] COMPREHENSIVE Routine 06/19/2018 8:36 PM Essential Resu lts for this SLEEP CDT hypertension procedure are in Suspected sleep the results apnea section. Chronic fatigue documented in this encounter Results Comprehensive Sleep Study (06/19/2018 8:36 PM CDT) Analysis Performed At Patho logist Time Signature [facility] Comprehensive [facility] Sleep Specimen (Source) Anatomical [...] 6 and weighs 170.0 lbs. Her B [place] is 27.3, Hedrick sleepiness scale 4.0 and neck circumfere nce [...] Diagnostic Codes: Unspecified Sleep Disturbance G47.9 06/19/2018 [facility] Sleep Stud y (170.0 lbs) - [...] CNP, Lynn Gail Ordering Provider: MD [facility] Indications for Polysomnography: The laureen rubio is a 72 y old Female who is 5' 6 and weighs 170.0 lbs. Her BMI is 27.3, Hedrick sleepiness scale 4.0 and neck circumference is [...] Diagnostic Codes: Unspecified Sleep Disturbance G47.9 06/19/2018 [facility] Sleep Stud y (170.0 lbs) - [...] documented as of this encounter Care Teams Claim Processing Specialist Relationship Specialty Start Date End Date Lisseth Vang MD PCP - General 04/13/16 11/14/[address] [place], [place] [address] Carlota Landeros MD MD Urology 04/10/[address] [place], [place] [address] Lisseth Vang MD PCP Family Practice 03/30/16 11/14/[address] [place], [place] [address] Michelle Montana, MODESTA Registered Nurse Urology 05/07/17 Anh Costa APRN ALARM OPERATOR Nurse Practitioner Nurse Practitioner 10/07 Martinez Galicia MD MD Ophthalmology 04/18/18 420 [place], [place] [address] documented as of this encounter
--- OUTSIDE RECORDS SUMMARY | 2022-07-30 20:06 | XMS_ITS | Encounter Summary ---
:1945 Author Organization [facility] Address [address] [place] [address]. [place] [address] Care Team Providers Name Role Phone Lisseth Vang MD Primary Care Provider Carlota Landeros MD Unavailable Lisseth Vang MD Unavailable Michelle Montana RN Unavailable Anh Costa APRN CARE TEAM ASSISTANT Unavailable Unavailable Martinez Galicia MD Unavailable Reason for Visit Reason Onset Date Comments Previsit 05/31/2018 Encounter Details Date Type Department Care Team Description 05/31/2018 PRE VISIT [facility] Ear Nose and Hsia, Kendra Shay, Previsit Throat [address] [place] [address] [address] [place] [address] [place], [place] [address] [phone] Social History Tobacco Use Types Packs/Day Years [...] Clinic name Comments Records Status Imaging Status [facility] VISIT: 04/22/2018 INTERNAL N/A [facility] CARDIO DISEASE PREVENTION OFFICE VISIT: 03/25/2018 INTERNAL N/A ENT OFFICE VISIT: 01/03/2018, 03/14/2015 INTERNAL N/A PCC OFFICE VISIT: 04/13/2016, 01/10/2016 INTERNAL N/A RECORDS STATUS documented in this encounter Plan of Treatment Upcoming Encounters Date Type Specialty Care Team Description 09/10/2022 Office Visit Internal Medicine Margot Branham MD [address] [place] [phone] (Wo rk) documented as of this encounter Visit Diagnoses Not on filedocumented in this encounter Additional Health Concerns Assessment Noted Time PHQ-9 Depression Total Score: 1 03/30/2018 7:10 AM CDT documented as of this encounter Care Teams Pressure Washer Relationship Specialty Start Date End Date Lisseth Vang MD PCP - General 04/13/16 11/14/[address] [place], [place] [address] Carlota Landeros MD MD Urology 04/10/[address] [place], [place] [address] Lisseth Vang MD PCP Family Practice 03/30/16 11/14/[address] [place], [place] [address] Michelle Montana, MODESTA Registered Nurse Urology 05/07/17 Anh Costa APRN CARE TEAM ASSISTANT Nurse Practitioner Nurse Practitioner 10/07 Martinez Galicia MD MD Ophthalmology 04/18/18 420 [place] [address] documented as of this encounter
--- OUTSIDE RECORDS SUMMARY | 2022-07-30 20:06 | XMS_ITS | Encounter Summary ---
:1945 Author Organization [facility] Address [address] [place] [address]. [place] [address] Care Team Providers Name Role Phone Lisseth Vang MD Primary Care Provider Carlota Acuña MD Unavailable Lisseth Vang MD Unavailable Michelle Montana RN Unavailable Anh Costa APRN BUSINESS ACCOUNT MANAGER Unavailable Unavailable Martinez Galicia MD Unavailable Reason for Visit Reason Comments Consult Seasonal Allergic Rhinitis Encounter Details Date Type Department Care Team Description 07/18/[address] [facility] Saulo Hillman rhinitis Center for Lung ArmandoMD (Primary Dx) [facility] [address] [address] [place], [place] [phone] [facility] Social History Tobacco Use Types Packs/Day Years [...] of education: N/A Occupational History ??? 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 [...] 1 son - - still working at [employer] - bermudian as a second language - lives in [...] ??? Myocardial Infarction Maternal Grandfather 82 of [place] ??? Cardiovascular [...] Visit Internal Medicine Margot Branham MD [address] [place] [phone] (Wo rk) documented as of this encounter Procedures Procedure Name Priority Date/Time Associated Diagnosis Comme nts [facility] INTRACUT SKIN Routine 07/18/2018 1:51 PM CDT Chronic rhini tis TESTS,ALLERGENS [facility] ALLERGY SKIN Routine 07/18/2018 1:51 PM CDT Chronic rhinit is TESTS,ALLERGENS documented in this encounter Visit Diagnoses Diagnosis Chronic rhinitis - Primary documented in this encounter Additional Health Concerns Assessment Noted Time PHQ-9 Depression Total Score: 1 03/30/2018 7:10 AM CDT documented as of this encounter Care Teams Auto Dealer Relationship Specialty Start Date End Date Lisseth Vang MD PCP - General 04/13/16 11/14/[address] [place], [place] [address] Carlota Acuña MD MD Urology 04/10/[address] [place], [place] [address] Lisseth Vang MD PCP Family Practice 03/30/16 11/14/[address] [place], [place] [address] Michelle Montana RN Registered Nurse Urology 05/07/17 Anh Costa APRN BUSINESS ACCOUNT MANAGER Nurse Practitioner Nurse Practitioner 10/07 Martinez Galicia MD MD Ophthalmology 04/18/18 420 [place], [place] [address] documented as of this encounter
--- OUTSIDE RECORDS SUMMARY | 2022-07-30 20:06 | XMS_ITS | Encounter Summary ---
:1945 Author Organization [facility] Address [address] [place] [address]. [place] [address] Care Team Providers Name Role Phone Lisseth Vang MD Primary Care Provider Carlota Landeros MD Unavailable Lisseth Vang MD Unavailable Michelle Montana RN Unavailable Anh Csota APRN TOLL COLLECTOR SUPERVISOR Unavailable Unavailable Martinez Galicia MD Unavailable Reason for Visit Reason Comments Medication Refill estradiol (ESTRING) 2 MG vag inal ring Encounter Details Date Type Department Care Team Description 05/16/2018 Refill [facility] Urology and Dee Landeros MD Medication Refill Inst for Prostate and [address] (estradiol (ESTRING) 2 Urologic Cancers 100 MG vaginal ring ) [address] [place], [place] [phone] [place] [address] [place] [address] Social History Tobacco Use Types [...] Internal Medicine Margot Branham MD [address] [phone] (Wo rk) documented as of this encounter Visit Diagnoses Diagnosis Vaginal dryness Other specified symptom associated with female genital organs Screen for colon cancer Special screening for malignant neoplasm s, colon Atrophic vaginitis Postmenopausal atrophic vaginitis documented in this encounter Additional Health Concerns Assessment Noted Time PHQ-9 Depression Total Score: 1 03/30/2018 7:10 AM CDT documented as of this encounter Care Teams Lithograph Designer Relationship Specialty Start Date End Date Lisseth Vang MD PCP - General 04/13/16 11/14/[address] [place], [place] [address] Carlota Landeros MD MD Urology 04/10/[address] [place], [place] [address] Lisseth Vang MD PCP Family Practice 03/30/16 11/14/[address] [place], [place] [phone] Michelle Montana, MODESTA Registered Nurse Urology 05/07/17 Anh Costa APRN TOLL COLLECTOR SUPERVISOR Nurse Practitioner Nurse Practitioner 10/07 Martinez Galicia MD MD Ophthalmology 04/18/[address] [place] [address] documented as of this encounter
--- OUTSIDE RECORDS SUMMARY | 2022-07-30 20:06 | XMS_ITS | Encounter Summary ---
:1945 Author Organization [place] Address [address] [place] [address]. [place] [address] Care Team Providers Name Role Phone Lisseth Vang MD Primary Care Provider Carlota Landeros MD Unavailable Lisseth Vang MD Unavailable Michelle Montana RN Unavailable Anh Costa APRN BENCH CHEMIST Unavailable Unavailable Martinez Galicia MD Unavailable Reason for Visit Reason Comments Follow Up Nuclear sclerotic cataract Encounter Details Date Type Department Care Team Description 07/05/2018 Office Visit [facility] Martinez Galicia senile cataract of both eyes; Clinic - Latoya Pearson MD Irregular astigmatism of both [facility] [address] Clin 9A [phone] [place], [place] (Work) [address] [phone] Social History Tobacco Use Types Packs/Day Years [...] eye first, discussed possible K edema given [facility]'s Attending Physician Attestation: Complete documentation of historical [...] Office Visit Internal Medicine LogeaMargot man MD [address] [place] [address] (Wo rk) documented as of this [...] documented as of this encounter Care Teams Application Developer Relationship Specialty Start Date End Date Lisseth Vang MD PCP - General 04/13/16 11/14/[address] [place], [place] [address] Carlota Landeros MD MD Urology 04/10/[address] [place] [address] Lisseth Vang MD PCP Family Practice 03/30/[address] [place] [address] Michelle Montana, MODESTA Registered Nurse Urology 05/07/17 Anh Costa APRN BENCH CHEMIST Nurse Practitioner Nurse Practitioner 10/07 Martinez Galicia MD MD Ophthalmology 04/18/[address] [place] [address] documented as of this encounter
--- OUTSIDE RECORDS SUMMARY | 2022-07-30 20:06 | XMS_ITS | Encounter Summary ---
:1945 Author Organization [place] Address [address] [place] [address]. [place] [address] Care Team Providers Name Role Phone Lisseth Vang MD Primary Care Provider Carlota Landeros MD Unavailable Lisseth Vang MD Unavailable Michelle Montana RN Unavailable Anh Costa APRN SINGLE ENDING MACHINE OPERATOR Unavailable Unavailable Martinez Galicia MD Unavailable Encounter Details Date Type Department Care Team Description 07/04/2018 Orders Only [facility] Martinez Galicia e nuclear sclerosis (Primary Dx); Clinic - Latoya Pearson MD Regular astigmatism [facility] [address] Clin 9A [place] [address] Social History Tobacco Use Types [...] 09/10/2022 Office Visit Internal Medicine LogeaisMargot MD [address] [place], [place] [address] (Wo rk) documented as of this encounter [...] documented as of this encounter Care Teams Pickling Tank Operator Relationship Specialty Start Date End Date Lisseth Vang MD PCP - General 04/13/16 11/14/[address] [place], [place] [address] Carlota Landeros MD MD Urology 04/10/[address] [place] [address] Lisseth Vang MD PCP Family Practice 03/30/16 11/14/[address] [place], [place] [address] Michelle Montana, MODESTA Registered Nurse Urology 05/07/17 Anh Costa APRN SINGLE ENDING MACHINE OPERATOR Nurse Practitioner Nurse Practitioner 10/07 Martinez Galicia MD MD Ophthalmology 04/18/[address] [place] [address] [phone] documented as of this encounter
--- OUTSIDE RECORDS SUMMARY | 2022-07-30 20:06 | XMS_ITS | Encounter Summary ---
:1945 Author Organization [place] Address [address] [place] [address]. [place] [address] Care Team Providers Name Role Phone Lisseth Vang MD Primary Care Provider Carlota Landeros MD Unavailable Lisseth Vang MD Unavailable Michelle Montana RN Unavailable Anh Costa APRN PLASTIC INSTALLER Unavailable Unavailable Martinez Galicia MD Unavailable Encounter Details Date Type Department Care Team Description 07/18/2018 Anesthesia Event M [facility] Surgery and Swati Peñaloza MD [address] [place] [address] [phone] Procedure Center Annie Lal MD [address] [place] [address] [address] [place] [address] Anesthesia Record Procedure Summary Procedure [...] (Last set prior to Anesthesia Care Transfer) SCHEDULER MAINTENANCE VITALS 07/18/2018 0814 - 07/18/2018 0847 07/18/2018 Pulse: 57 Ht Rate: 56 SpO2: 100 % Resp Rate (set): 10 Electronically Signed By: Levy Espinoza APRN CRNA July 18, 2018 8:47 AM documented in this encounter Plan of Treatment Upcoming Encounters Date Type Specialty Care Team Description 09/10/2022 Office Visit Internal Medicine Logeais, MD Margot [address] [place] [phone] (Wo rk) documented as of this encounter [...] documented as of this encounter Care Teams Accounting Assistant Relationship Specialty Start Date End Date Lisseth Vang MD PCP - General 04/13/16 11/14/[address] [place], [place] [address] Carlota Landeros MD MD Urology 04/10/[address] [place], [place] [address] Lisseth Vang MD PCP Family Practice 03/30/16 11/14/[address] [place], [place] [address] Michelle Montana, MODESTA Registered Nurse Urology 05/07/17 Anh Costa APRN PLASTIC INSTALLER Nurse Practitioner Nurse Practitioner 10/07 Martinez Galicia MD MD Ophthalmology 04/18/[address] [place] [address] [phone] documented as of this encounter
--- OUTSIDE RECORDS SUMMARY | 2022-07-30 20:06 | XMS_ITS | Encounter Summary ---
:1945 Author Organization [place] Address [address] [place] [address]. [place] [address] Care Team Providers Name Role Phone Lisseth Vang MD Primary Care Provider Carlota Landeros MD Unavailable Lisseth Vang MD Unavailable Michelle Montana RN Unavailable Anh Costa APRN MAINFRAME PROGRAMMER ANALYST Unavailable Unavailable Martinez Galicia MD Unavailable Reason for Visit Reason Comments Procedure turbinate reduction Encounter Details Date Type Department Care Team Description 07/29/2018 Office Visit [facility] Kendra Santillan Nasal congestion (Primary Dx); Throat MD Laurita Nasal turbinate hypertrophy [address] [place] [phone] [phone] Social History Tobacco Use Types Packs/Day Years [...] or concerns after your appointment, please call [phone]. Press option #1 for scheduling related needs. Press option #3 for nurse advice. 2. Plan to return to clinic in 6 weeks 3. Administer over the counter nasal irrigation 2-3 times per day 4. After your turbinate reduction, avoid strenuous activity for 24 hours and avoid blowing your nosefor 24 hours to limit the chance of a nose bleed. Julio Cesar Sykes RN [facility] documented in this encounter Progress Notes [...] Visit Internal Medicine Margot Branham MD [address] [place] [address] (Wo rk) documented as of this [...] documented as of this encounter Care Teams Glass Tube Bender Relationship Specialty Start Date End Date Lisseth Vang MD PCP - General 04/13/16 11/14/[address] [place], [place] [address] Carlota Landeros MD MD Urology 04/10/[address] [place], [place] [address] Lisseth Vang MD PCP Family Practice 03/30/16 11/14/[address] [place], [place] [address] Michelle Montana, MODESTA Registered Nurse Urology 05/07/17 Anh Costa APRN MAINFRAME PROGRAMMER ANALYST Nurse Practitioner Nurse Practitioner 10/07 Martinez Galicia MD MD Ophthalmology 04/18/[address] [place] [address] documented as of this encounter
--- OUTSIDE RECORDS SUMMARY | 2022-07-30 20:06 | XMS_ITS | Encounter Summary ---
:1945 Author Organization [place] Address [address] [place] [address]. [place] [address] Care Team Providers Name Role Phone Lisseth Vang MD Primary Care Provider Carlota Landeros MD Unavailable Lisseth Vang MD Unavailable Michelle Montana RN Unavailable Anh Costa APRN AIRLINE RESERVATION AGENT Unavailable Unavailable Martinez Galicia MD Unavailable Reason for Visit Reason Comments Post Op (Ophthalmology) Both Eyes right eye CE/IOL , left eye CE/IOL 07-25-18 Encounter Details Date Type Department Care Team Description 08/09/2018 Office Visit [facility] Martinez Galicia ophakia - Both Eyes (Primary Dx); Clinic - Latoya Pearson MD Fuchs' endothelial dystrophy - Both Eyes ; [facility] [address] [facility] Bilateral dry eyes [address] [address] [address] Clin 9A [phone] [place], [place] (Work) [address] [phone] Social History Tobacco Use Types Packs/Day Years [...] CST Future Appointments Date Time Provider Department [place] 08/12/2018 11:30 AM Agus Wu MD [facility] 08/15/2018 8:00 AM Sabino Romano DPM [facility] 09/05/2018 1:30 PM Anh Costa APRN CNP [facility] 08/15/2019 8:45 AM Martinez Galicia MD [facility] RNAL CONTROLS CONSULTANT documented in this encounter Progress Notes Martinez [...] patient and family.. 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 Bilateral dry eyes Tear film insufficiency, unspecified documented in this encounter Additional Health Concerns Assessment Noted Time PHQ-9 Depression Total Score: 1 03/30/2018 7:10 AM CDT documented as of this encounter Care Teams Broadcast Supervisor Relationship Specialty Start Date End Date Lisseth Vang MD PCP - General 04/13/16 11/14/[address] [place], [place] [address] Carlota Landeros MD MD Urology 04/10/[address] [place], [place] [phone] Lisseth Vang MD PCP Family Practice 03/30/16 11/14/[address] [place], [place] [address] Michelle Montana, RN Registered Nurse Urology 05/07/17 Anh Costa APRN AIRLINE RESERVATION AGENT Nurse Practitioner Nurse Practitioner 10/07 Martinez Galicia MD MD Ophthalmology 04/18/[address] [place] [address] documented as of this encounter
--- OUTSIDE RECORDS SUMMARY | 2022-07-30 20:06 | XMS_ITS | Encounter Summary ---
:1945 Author Organization [place] Address [address] [place] [address]. [place] [address] Care Team Providers Name Role Phone Lisseth Vang MD Primary Care Provider Carlota Landeros MD Unavailable Lisseth Vang MD Unavailable Michelle Montana RN Unavailable Anh Costa APRN PLASTIC MANAGER Unavailable Unavailable Martinez Galicia MD Unavailable Reason for Referral Consultation - Closed Specialty Diagnoses / Procedures Referred By Contact Refer red To Contact Diagnoses Seasonal allergic rhinitis, unspecified chronicity, unspecified trigger Kendra Santillan MD [address] [place] [address] Referral ID Status Reason Start Date Expiration Date Visits Requ ested Visits Authorized [id number] Closed 05/31/2018 05/31/2019 1 1 Consultation - Closed Specialty Diagnoses / Procedures Referred By Contact Refer red To Contact Diagnoses Nasal congestion Seasonal allergic rhinitis, unspecified chronicity, unspecified trigger Kendra Santillan MD [address] [place] [address] Referral ID Status Reason Start Date Expiration Date Visits Requ ested Visits Authorized [id number] Closed 05/31/2018 05/31/2019 1 1 Reason for Visit Reason Comments Consult widen nasal passage Encounter Details Date Type Department Care Team Description 05/31/2018 Office Visit [facility] HsKendra wetzel Nasal congestion (Primary Dx); Throat MD Laurita Seasonal allergic rhinitis, unspecified chronicity, unspecified trigger [address] [place] [address] [phone] Social History Tobacco Use Types Packs/Day Years [...] someone regarding your medical care, please call [phone], option #1 2. MODESTA Frost: [phone] 3. Surgery scheduling: Jordyn Hinds: [phone] Shanna Louis: [phone] 4. 5. [phone] documented in this encounter Progress Notes Kendra [...] would like to be referred to an facialist. A referral was made for her today. I will see her back in clinic to perform the turbinate reductions. I spent a total of 25 minutes [id number] with Yamileth Sheikh during today's office visit. [...] Visit Internal Medicine Margot Branham MD [address] [place] [address] [phone] (Wo rk) Scheduled Referrals Name Type Priority [...] documented as of this encounter Care Teams Mica Plate Layer Hand Relationship Specialty Start Date End Date Lisseth Vang MD PCP - General 04/13/16 11/14/[address] [place], [place] [address] Carlota Landeros MD MD Urology 04/10/[address] [place] [address] Lisseth Vang MD PCP Family Practice 03/30/16 11/14/[address] [place] [address] Michelle Montana, MODESTA Registered Nurse Urology 05/07/17 Anh Costa APRN PLASTIC MANAGER Nurse Practitioner Nurse Practitioner 10/07 Martinez Galicia MD MD Ophthalmology 04/18/[address] [place] [address] documented as of this encounter
--- OUTSIDE RECORDS SUMMARY | 2022-07-30 20:06 | XMS_ITS | Encounter Summary ---
:1945 Author Organization [place] Address [address] [place] [address]. [place] [address] Care Team Providers Name Role Phone Lisseth Vang MD Primary Care Provider Carlota Acuña MD Unavailable Lisseth Vang MD Unavailable Michelle Montana RN Unavailable Anh Costa APRN WOOLING MACHINE OPERATOR Unavailable Unavailable Martinez Galicia MD Unavailable Reason for Visit Reason Comments Hyperlipidemia Hypertension Tinnitus Encounter Details Date Type Department Care Team Description 07/07/2018 Office Visit [facility] for Anh Costa Hyperli pidemia LDL goal Cardiovascular Disease CLAUDIA Marsh WOOLING MACHINE OPERATOR <10 0 (Primary Dx) Prevention [address] [place] [address] Social History Tobacco Use Types Packs/Day [...] 3 ??? azelastine (ASTELIN) 0.1 % spray [place] 2 sprays into both nostrils 2 times [...] daily ??? fluticasone (FLONASE) 50 MCG/ACT spray [place] 2 sprays into both nostrils daily 1 [...] 3 ??? ipratropium (ATROVENT) 0.06 % spray [place] 2 sprays into both nostrils 4 times [...] ??? Myocardial Infarction Maternal Grandfather 82 of [place] ??? Cardiovascular Paternal Grandmother age 65 of heart problems ??? Pneumonia Paternal Grandfather age 70 after flu ??? No Known Problems Son ??? Macular Degeneration No family hx of SOCIAL HISTORY: Social History Social History ??? Marital status: Single Spouse name: N/A ??? Number of children: N/A ??? 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 [...] 1 son - - still working at [employer] - turkmen as a second language - lives in [...] Visit Internal Medicine LogMargot sadler MD [address] [address] (Wo rk) documented as of this encounter Results Lipid panel reflex to direct LDL Fasting (07/22/2018 9:22 AM CDT) [facility] Method Time Signature Cholesterol 127 <200 mg/dL 07/22/2018 [facility] 9:48 AM CDT [facility] Triglycerides 84 <150 mg/dL 07/22/2018 [facility] 9:48 AM CDT [facility] HDL Cholesterol 62 >49 mg/dL 07/22/2018 [facility] 9:48 AM CDT [facility] LDL Cholesterol 48 <100 mg/dL 07/22/2018 [facility] O F Calculated 9:48 AM CDT [facility] Comment: Desirable: <100 mg/dl Non HDL Cholesterol 65 <130 mg/dL 07/22/2018 9:48 AM CDT [facility] Specimen Anatomical Collection Method Collection Time Receive d Time (Source) Location / / Volume Laterality Blood specimen 07/22/2018 9:22 AM 018 9:23 (specimen) CDT AM CDT Anh Costa APRN, CNP LAB - BLOOD ORDERABLES Performing Organization Address City/State/ZIP Code Phon e Number [address] [address] [facility] documented in this encounter Visit Diagnoses Diagnosis Hyperlipidemia LDL goal <100 - Primary Other and unspecified hyperlipidemia documented in this encounter Additional Health Concerns Assessment Noted Time PHQ-9 Depression Total Score: 1 03/30/2018 7:10 AM CDT documented as of this encounter Care Teams Csr Relationship Specialty Start Date End Date Lisseth Vang MD PCP - General 04/13/16 11/14/[address] [place] [address] Carlota Acuña MD MD Urology 04/10/[address] [place], [place] [address] Lisseth Vang MD PCP Family Practice 03/30/16 11/14/[address] [place] [address] Michelle Montana, MODESTA Registered Nurse Urology 05/07/17 Anh Costa APRN WOOLING MACHINE OPERATOR Nurse Practitioner Nurse Practitioner 10/07 Martinez Galicia MD MD Ophthalmology 04/18/[address] [place] [phone] documented as of this encounter
--- OUTSIDE RECORDS SUMMARY | 2022-07-30 20:07 | XMS_ITS | Encounter Summary ---
:1945 Author Organization [place] Address [address] [place] [address]. [place] [address] Care Team Providers Name Role Phone Lisseth Vang MD Primary Care Provider Carlota Landeros MD Unavailable Lisseth Vang MD Unavailable Michelle Montana RN Unavailable Encounter Details Date Type Department Care Team Description 09/20/2017 Orders Only [facility] Anh Costa nsive heart Cardiovascular Disease [place], CLAUDIA CIRCULAR KNIFE CUTTER MACHINE dis ease without heart Prevention failure [address] [place] [phone] Social History Tobacco Use Types Packs/Day [...] Visit Internal Medicine LogMargot sadler MD [address] [address] (Wo rk) documented as of this encounter Visit Diagnoses Diagnosis Hypertensive heart disease without heart failure Unspecified hypertensive heart disease w ithout heart failure documented in this encounter Care Teams Data Programmer Relationship Specialty Start Date End Date Lisseth Vang MD PCP - General 04/13/16 11/14/[address] [place] [address] Carlota Landeros MD MD Urology 04/10/[address] [place], [place] [phone] Lisseth Vang MD PCP Family Practice 03/30/16 11/14/[address] [place], [place] [phone] Michelle Montana, MODESTA Registered Nurse Urology 05/07/17 documented as of this encounter
--- OUTSIDE RECORDS SUMMARY | 2022-07-30 20:07 | XMS_ITS | Encounter Summary ---
:1945 Author Organization [place] Address [address] [place] [address]. [place] [address] Care Team Providers Name Role Phone Lisseth Vang MD Primary Care Provider [place] Acuña MD Unavailable Lisseth Vang MD Unavailable Michelle Montana RN Unavailable Anh Costa APRN, CNP Unavailable Unavailable Encounter Details Date Type Department Care Team Description 01/24/2018 Office Visit [facility] for Anh Costa hypertension Cardiovascular Disease CLAUDIA Marsh CNP (Pr imary Dx) [address] [address] Social History Tobacco Use Types [...] daily ??? azelastine (ASTELIN) 0.1 % spray [place] 2 sprays into both nostrils 2 times [...] daily ??? fluticasone (FLONASE) 50 MCG/ACT spray [place] 2 sprays into both nostrils daily 1 [...] 3 ??? ipratropium (ATROVENT) 0.06 % spray [place] 2 sprays into both nostrils 4 times [...] ??? Myocardial Infarction Maternal Grandfather 82 of [place] ??? Cardiovascular Paternal Grandmother age 65 of heart problems ??? Pneumonia Paternal Grandfather age 70 after flu ??? Parkinsonism Sister SOCIAL HISTORY: Social History Social History ??? Marital status: Single Spouse name: N/A ??? Number of children: N/A ??? 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 [...] 1 son - - still working at [employer] - french as a second language - lives in [...] Description 09/10/2022 Office Visit Internal Medicine Margot Barnham MD [address] [place] [address] [phone] (Wo rk) documented as of this encounter Visit Diagnoses Diagnosis Essential hypertension - Primary Unspecified essential hypertension documented in this encounter Care Teams Seat Builder Relationship Specialty Start Date End Date Lisseth Vang MD PCP - General 04/13/16 11/14/[address] [place], [place] [address] Carlota Acuña MD MD Urology 04/10/[address] [place], [place] [address] Lisseth Vang MD PCP Family Practice 03/30/16 11/14/[address] [place], [place] [address] Michelle Montana, RN Registered Nurse Urology 05/07/17 Anh Costa APRN CNP Nurse Practitioner Nurse Practitioner 10/07 documented as of this encounter
--- OUTSIDE RECORDS SUMMARY | 2022-07-30 20:07 | XMS_ITS | Encounter Summary ---
:1945 Author Organization [place] Address [address] [place] [address]. [place] [address] Care Team Providers Name Role Phone Lisseth Vang MD Primary Care Provider Carlota Landeros MD Unavailable Lisseth Vang MD Unavailable Michelle Montana RN Unavailable Anh Costa APRN BARGE HAND Unavailable Unavailable Reason for Visit Diagnostic Imaging Mammo - Closed Specialty Diagnoses / Procedures Referred By Contact Refer red To Contact Diagnoses Visit for screening mammogram Lisseth Vang MD Procedures MA Screen Bilateral w/[place] Screening Digital Bilateral [address] [place], [place] [address] Referral ID Status Reason Start Date Expiration Date Visits Requ ested Visits Authorized [id number] Closed 03/24/2018 03/24/2019 1 1 Encounter Details Date Type Department Care Team Description 03/28/2018 [facility] Only [facility] Visit for screening Imaging mammogram 909 [facility] 2nd Floor [place] [phone] Social History Tobacco Use Types Packs/Day [...] Visit Internal Medicine LogMargot sadler MD [address] [facility] [place], [place] [address] (Wo rk) documented as of this encounter Visit Diagnoses Diagnosis Visit for screening mammogram Other screening mammogram documented in this encounter Care Teams Filler Sifter Helper Relationship Specialty Start Date End Date Lisseth Vang MD PCP - General 04/13/16 11/14/[address] [place], [place] [address] Carlota Landeros MD MD Urology 04/10/[address] [place], [place] [address] Lisseth Vang MD PCP Family Practice 03/30/16 11/14/[address] [place], [place] [address] Michelle Montana, MODESTA Registered Nurse Urology 05/07/17 Anh Costa APRN BARGE HAND Nurse Practitioner Nurse Practitioner 10/07 documented as of this encounter
--- OUTSIDE RECORDS SUMMARY | 2022-07-30 20:07 | XMS_ITS | Encounter Summary ---
:1945 Author Organization [place] Address [address] [place] [address]. [place] [address] Care Team Providers Name Role Phone Lisseth Vang MD Primary Care Provider Carlota Landeros MD Unavailable Lisseth Vang MD Unavailable Michelle Montana RN Unavailable Anh Costa APRN, CNP Unavailable Unavailable Encounter Details Date Type Department Care Team Description 12/07/2017 Orders Only [facility] for Anh Costa nsive heart Cardiovascular Disease CLAUDIA Marsh CNP dis ease without heart Prevention failure [address] [place] [phone] Social History Tobacco Use Types Packs/Day [...] Visit Internal Medicine LogeaisMargot MD [address] [address] (Wo rk) documented as of this encounter Visit Diagnoses Diagnosis Hypertensive heart disease without heart failure Unspecified hypertensive heart disease w ithout heart failure documented in this encounter Care Teams Sheet Metal Shop Helper Relationship Specialty Start Date End Date Lisseth Vang MD PCP - General 04/13/16 11/14/[address] [place] [address] Carlota Landeros MD MD Urology 04/10/[address] [place], [place] [address] Lisseth Vang MD PCP Family Practice 03/30/16 11/14/[address] [place], [place] [phone] Michelle Montana RN Registered Nurse Urology 05/07/17 Anh Costa APRN COMPUTER SECURITY SPECIALIST Nurse Practitioner Nurse Practitioner 10/07 documented as of this encounter
--- OUTSIDE RECORDS SUMMARY | 2022-07-30 20:07 | XMS_ITS | Encounter Summary ---
:1945 Author Organization [place] Address [address] [place] [address]. [place] [address] Care Team Providers Name Role Phone Lisseth Vang MD Primary Care Provider Carlota Landeros MD Unavailable Lisseth Vang MD Unavailable Michelle Montana RN Unavailable Reason for Visit Reason Onset Date Comments Refill Request 09/16/2017 Encounter Details Date Type Department Care Team Description 09/16/2017 Refill [facility] Heart Anh Costa APRN Refill Request [address] [phone] Social History Tobacco Use [...] Office Visit Internal Medicine LogeaMargot man MD [address] [place] [phone] (Wo rk) documented as of this encounter Visit Diagnoses Diagnosis Hypertensive heart disease without heart failure Unspecified hypertensive heart disease w ithout heart failure documented in this encounter Care Teams Filenet P8 Developer Relationship Specialty Start Date End Date Lisseth Vang MD PCP - General 04/13/16 11/14/[address] [place], [place] [phone] Carlota Landeros MD MD Urology 04/10/[address] [place], [place] [address] Lisseth Vang MD PCP Family Practice 03/30/16 11/14/[address] [place], [place] [phone] Michelle Montana, MODESTA Registered Nurse Urology 05/07/17 documented as of this encounter
--- OUTSIDE RECORDS SUMMARY | 2022-07-30 20:07 | XMS_ITS | Encounter Summary ---
:1945 Author Organization [place] Address [address] [place] [address]. [place] [address] Care Team Providers Name Role Phone Lisseth [...] Anh Costa APRN CNP Procedures Echocardiogram Complete [address] [facility] 508 [place] [address] Referral ID Status Reason Start Date Expiration Date Visits Requ ested Visits Authorized [id number] Closed 04/12/2018 04/12/2019 1 1 Encounter Details Date Type Department Care Team Description 04/22/2018 Radiant Appointment [facility] Echo Anh Costa Fatigue, unspecified type; 909 [facility] CLAUDIA Marsh CNP Palpitations; 3rd Floor Elevated brain natriuretic p eptide (B[place]) [place] [address] Social History Tobacco Use Types [...] Visit Internal Medicine Margot Branham MD 909 [facility] 4TH [place], [place] [phone] (Wo rk) documented as of this encounter [...] PM CDT Narrative 04/22/2018 4:34 PM CDT [id number] [id number]^TALIA^ANH^RAMIN [facility] Diagnostic and Treamtent-3rd Floor 909 [facility] [place] [address] Name: IMELDA GARCIA : 1945 Study Date: 04/22/2018 03:02 PM Age: 72 yrs Gender: Female Patient Location: [facility] Reason For Study: Fatigue, unspecified t ype, [...] note might be different from the original. [id number] [id number]^TALIA^ANH^RAMIN [facility] Diagnostic and Treamtent-3rd Floor 909 [place] [address] Name: IMELDA GARCIA : 1945 Study Date: 04/22/2018 03:02 PM Age: 72 yrs Gender: Female Patient Location: [facility] Reason For Study: Fatigue, unspecified t ype, [...] documented as of this encounter Care Teams Golf Ball Molder Relationship Specialty Start Date End Date Lisseth Vang MD PCP - General 04/13/16 11/14/[address] [place] [address] Carlota Landeros MD MD Urology 04/10/[address] [place], [place] [phone] Lisseth Vang MD PCP Family Practice 03/30/16 11/14/[address] [place], [place] [phone] Michelle Montana, MODESTA Registered Nurse Urology 05/07/17 Anh Costa APRN CNP Nurse Practitioner Nurse Practitioner 10/07 Martinez Galicia MD MD Ophthalmology 04/18/[address] [place] [address] documented as of this encounter
--- OUTSIDE RECORDS SUMMARY | 2022-07-30 20:07 | XMS_ITS | Encounter Summary ---
:1945 Author Organization [place] Address [address] [place] [address]. [place] [address] Care Team Providers Name Role Phone Shanell Baum MD Primary Care Provider Carlota Landeros MD Unavailable Shanell Baum MD Unavailable Michelle Montana RN Unavailable Anh Costa APRN THIRD GRADE TEACHER Unavailable Unavailable Reason for Visit Diagnostic Imaging Dexa - Closed Specialty Diagnoses / Procedures Referred By Contact Refer red To Contact Diagnoses Disorder of bone and cartilage Shanell Baum MD Procedures Dexa Hip, Pelvis, Spine [address] [place], [place] [address] Referral ID Status Reason Start Date Expiration Date Visits Requ ested Visits Authorized [id number] Closed 03/29/2018 03/29/2019 1 1 Encounter Details Date Type Department Care Team Description 04/13/2018 Radiant Appointment [facility] aDgo Baum rder of bone and Center Dexa MD Shanell cartilage 909 [facility] SE [address] 1st Floor [address] [facility], [address] [place] [address] [phone] Social History Tobacco Use Types Packs/Day Years [...] Visit Internal Medicine Margot Branham MD [address] [place] [phone] (Wo rk) documented as of this encounter [...] Laterality Volume Narrative 04/16/2018 3:26 PM CDT [facility] Center [address] [place] [address] Phone: ?? Fax: Final Patient name: ?? IMELDA GARCIA ([id number] ) Patient demographics: 72.6 year old Whit e Female of 66.5 in. height and 174.5 lbs. weight Ordering provider: SHANELL BAUM History: ??EVAL BONE DENSITY, family hx of osteoporosis, LOW BONE DENSITY, POSTMENOPAUSAL status, right hip hardwar e, right hip replacement Current treatments: Vitamin D, Calcium, ESTROGEN Scan: ??DXA exam ([id number] ): KissMyAdsar Prodigy Exam date: ??04/13/2018 Comparison: ?? 04/13/2018 [...] to you and your patient. Principal result freelance interpreter/translator: Adiel Quinn MD, CCD Major Assembly Inspectorcancer program consultant Division of Endocrinology References: 1. ISCD position statements: ??www.iscd. org ??(includes the report of the 2014 ??Position Development Conference) 2. LSC = least significant changes at th e [facility] Imaging Center AP spine = ??0.032 [...] as of this encounter Care Teams Weather Forcaster Relationship Specialty Start Date End Date Shanell Baum MD PCP - General 04/13/16 11/14/[address] [place], [place] [address] Carlota Landeros MD MD Urology 04/10/[address] [place], [place] [address] Shanell Baum MD PCP Family Practice 03/30/16 11/14/[address] [place], [place] [address] Michelle Montana, RN Registered Nurse Urology 05/07/17 Anh Costa APRN CNP Nurse Practitioner Nurse Practitioner 10/07 documented as of this encounter
--- OUTSIDE RECORDS SUMMARY | 2022-07-30 20:07 | XMS_ITS | Encounter Summary ---
:1945 Author Organization [place] Address [address] [place] [address]. [place] [address] Care Team Providers Name Role Phone Lisseth Vang MD Primary Care Provider Carlota Landeros MD Unavailable Lisseth Vang MD Unavailable Michelle Montana RN Unavailable Anh Costa APRN, CNP Unavailable Unavailable Martinez Galicia MD Unavailable Encounter Details Date Type Department Care Team Description 04/22/2018 Orders Only [facility] for Anh Costa hypertension Cardiovascular Disease CLAUDIA Marsh CNP (Pr imary Dx) Prevention [address] [place] [phone] Social History Tobacco Use Types Packs/Day [...] Visit Internal Medicine Margot Branham MD 909 [facility] 4TH [place], [place] [phone] (Wo rk) documented as of this encounter Visit Diagnoses Diagnosis Essential hypertension - Primary Unspecified essential hypertension documented in this encounter Additional Health Concerns Assessment Noted Time PHQ-9 Depression Total Score: 1 03/30/2018 7:10 AM CDT documented as of this encounter Care Teams Warehouse Order Puller Relationship Specialty Start Date End Date Lisseth Vang MD PCP - General 04/13/16 11/14/[address] [place], [place] [address] Carlota Landeros MD MD Urology 04/10/[address] [place], [place] [address] Lisseth Vang MD PCP Family Practice 03/30/16 11/14/[address] [place], [place] [address] Michelle Montana, RN Registered Nurse Urology 05/07/17 Anh Costa APRN PATIENT ACCESS Nurse Practitioner Nurse Practitioner 10/07 Martinez Galicia MD MD Ophthalmology 04/18/[address] [place] [phone] documented as of this encounter
--- OUTSIDE RECORDS SUMMARY | 2022-07-30 20:07 | XMS_ITS | Encounter Summary ---
:1945 Author Organization [place] Address [address] [place] [address]. [place] [address] Care Team Providers Name Role Phone Lisseth Vang MD Primary Care Provider Carlota Landeros MD Unavailable Lisseth Vang MD Unavailable Michelle Montana RN Unavailable Anh Costa APRN ADULT BASIC EDUCATION INSTRUCTOR Unavailable Unavailable Reason for Visit Diagnostic Imaging Mammo - Closed Specialty Diagnoses / Procedures Referred By Contact Refer red To Contact Diagnoses Visit for screening mammogram Lisseth Vang MD Procedures MA Screen Bilateral w/[place] Screening Digital Bilateral [address] [place], [place] [address] Referral ID Status Reason Start Date Expiration Date Visits Requ ested Visits Authorized [id number] Closed 03/24/2018 03/24/2019 1 1 Encounter Details Date Type Department Care Team Description 03/25/2018 Radiant Appointment [facility] No Show 9 [facility] , 2nd Floor [place] [phone] Social History Tobacco Use Types Packs/Day [...] Visit Internal Medicine LogeaMargot man MD 909 [facility] 4TH [place], [place] [address] (Wo rk) documented as of this encounter Visit Diagnoses Not on filedocumented in this encounter Care Teams Testing Specialist Relationship Specialty Start Date End Date Lisseth Vang MD PCP - General 04/13/16 11/14/[address] [place], [place] [phone] Carlota Landeros MD MD Urology 04/10/[address] [place] [address] Lisseth Vang MD PCP Family Practice 03/30/16 11/14/[address] [place], [place] [phone] Michelle Montana, RN Registered Nurse Urology 05/07/17 Anh Costa APRN ADULT BASIC EDUCATION INSTRUCTOR Nurse Practitioner Nurse Practitioner 10/07 documented as of this encounter
--- OUTSIDE RECORDS SUMMARY | 2022-07-30 20:07 | XMS_ITS | Encounter Summary ---
:1945 Author Organization [place] Address [address] [place] [address]. [place] [address] Care Team Providers Name Role Phone Shanell Baum MD Primary Care Provider Carlota Acuña MD Unavailable Shanell Baum MD Unavailable Michelle Montana RN Unavailable Anh Costa APRN STATION MANAGER Unavailable Unavailable Reason for Referral Diagnostic Imaging Dexa - Closed Specialty Diagnoses / Procedures Referred By Contact Refer red To Contact Diagnoses Disorder of bone and cartilage Shanell Baum MD Procedures Dexa Hip, Pelvis, Spine [address] [place], [place] [address] Referral ID Status Reason Start Date Expiration Date Visits Requ ested Visits Authorized [id number] Closed 03/29/2018 03/29/2019 1 1 Diagnostic Imaging Mammo - Closed Specialty Diagnoses / Procedures Referred By Contact Refer red To Contact Diagnoses Breast cancer screening Shanell Baum MD Procedures MA Screen Bilateral w/[place] [address] [place], [place] [address] Referral ID Status Reason Start Date Expiration Date Visits Requ ested Visits Authorized [id number] Closed 03/29/2018 03/29/2019 1 1 Reason for Visit Reason Comments Annual Visit Encounter Details Date Type Department Care Team Description 03/29/2018 Office Visit [facility] Ciera, Annual phy sical exam (Primary Dx); [facility] MD Shanell Breast cancer screening; [place] [address] Uterine leiomyoma, unspecifi ed location; [facility] [address] [address] Hyperlipidemia, unspecified hyperlipidem ia type; [facility] [place], Disorder of bone and cartila ge; 3RD FLR,[address] [place] [address] Immunization due [address] [phone] [facility] 88 (Work) [place], [place] [address] [phone] Social History Tobacco Use Types Packs/Day Years [...] MD - 03/29/2018 8:20 AM CDT Mammogram: [phone] DEXA [facility] Scheduling ([phone]) documented in this encounter Progress Notes Shanell [...] ?? Fall risk: none Concerns: ?? Seeing Anh Costa for cardiovascular help: LDL Particle Number, NMR 1764 H; BNP 161; Will see Dr. Villanueva on April 07, 2018. Very reluctant to start medication but would consider. ?? Knee pain, bilateral R>L. Able to walk. ?? Remains unclear what CLIENT SERVICE CONSULTANT follow-up she should have. Was seen at [facility] for Hysteroscopy 06/2016 - has not follow-up. No abnormal bleeding but isn't sure what they advised. [Saw Kaleigh Osbornmaso] HCM: mammogram 12/2015 ; Colonoscopy 05/2016; CLIENT SERVICE CONSULTANT [seen at February 0906/2016] PAST ASSOCIATE SOFTWARE APPLICATION ENGINEER HISTORY: 1 para 1 status post in 1978. Has uterine fibroids [[place]]. Not on hormone therapy PAST MEDICAL HISTORY: [...] Retired March 2015. Has a home in [facility]. Past Surgical History: Procedure Laterality Date ??? [...] Uterine leiomyoma, unspecified location - Will consider CLIENT SERVICE CONSULTANT visit at [place] or see Dr. Bustos at [facility] 4. Hyperlipidemia, unspecified hyperlipidemia type - Will follow-up Dr. Villanueva - - Very reluctant to start statin - Consider On The Flea. [it has worked in the past] 5. [...] Office Visit Internal Medicine LogeaisMargot MD [address] [address] (Wo rk) documented as of this encounter Results Dexa Hip, Pelvis, Spine (04/13/2018 8:53 AM CDT) Anatomical Region Laterality Modality Dexa Bone Mineral Density Specimen (Source) Anatomical Location Collection Method / Collectio n Time Received Time / Laterality Volume Narrative 04/16/2018 3:26 PM CDT [facility] Imaging Center [address] [place] [address] Phone: ?? Fax: Final Patient name: ?? IMELDA GARCIA ([id number] ) Patient demographics: 72.6 year old Whit e Female of 66.5 in. height and 174.5 lbs. weight Ordering provider: SHANELL BAUM History: ??EVAL BONE DENSITY, family hx of osteoporosis, LOW BONE DENSITY, POSTMENOPAUSAL status, right hip hardwar e, right hip replacement Current treatments: Vitamin D, Calcium, ESTROGEN Scan: ??DXA exam ([id number] ): Gradeable Exam date: ??04/13/2018 Comparison: ?? 04/13/2018 11/20/2013 [...] precision. Bone densitometry cannot rule out second kityt causes of bone loss. Therefore, further metabolic [...] to you and your patient. Principal result concentrator operator: Adiel Quinn MD, CCD Line Assemblercommunity association manager Division of Endocrinology References: 1. ISCD position statements: ??www.iscd. org ??(includes the report of the 2015 ??Position Development Conference) 2. LSC = least significant changes at th e [facility] Imaging Center AP spine = [...] to schedule an appointment in a Breast Leather Goods Ii Assembler if she so desires. Code: GC I have personally reviewed the examinati on and initial interpretation and I agree with the findings. PERI ADAM MD Narrative 04/14/2018 8:33 AM CDT EXAMINATION: Bilateral digital screening mammography and bilateral digital tomosynthesis with computer systems security administrator d detection. COMPARISON: 12/31/2014, 11/27/2013, 12/10/19, 10/08/2010 HISTORY/FAMILY HISTORY: No symptoms, rou randy screening. Family history of ovarian cancer in niece, in her 40s. TECHNIQUE: ??Tomosynthesis BREAST DENSITY: Scattered fibroglandular densities. COMMENTS: There has been no significant change. ?? Procedure Note Peri Adam MD - 04/14/2018 EXAMINATION: Bilateral digital screening mammography and bilateral digital tomosynthesis with computer systems security administrator d detection. COMPARISON: 12/31/2014, 11/27/2013, 12/10/19, 10/08/2010 [...] to schedule an appointment in a Breast Leather Goods Ii Assembler if she so desires. Code: GC I [...] documented as of this encounter Care Teams Chairlift Operator Relationship Specialty Start Date End Date Shanell Baum MD PCP - General 04/13/16 11/14/[address] [place] [address] Carlota Acuña MD MD Urology 04/10/[address] [place], [place] [address] Shanell Baum MD PCP Family Practice 03/30/16 11/14/[address] [place], [place] [address] Michelle Montana, RN Registered Nurse Urology 05/07/17 Anh Costa APRN STATION MANAGER Nurse Practitioner Nurse Practitioner 10/07 documented as of this encounter
--- OUTSIDE RECORDS SUMMARY | 2022-07-30 20:07 | XMS_ITS | Encounter Summary ---
:1945 Author Organization [place] Address [address] [place] [address]. [place] [address] Care Team Providers Name Role Phone Lisseth Vang MD Primary Care Provider Carlota Acuña MD Unavailable Lisseth Vang MD Unavailable Michelle Montana RN Unavailable Anh Costa APRN WELDER JOURNEYMAN Unavailable Unavailable Reason for Visit Reason Comments New Patient Htn, Hyperlipidemia Encounter Details Date Type Department Care Team Description 04/07/2018 Office Visit [facility] Damian Villanueva, Hyper lipidemia, Heart Clinic Mateo OLIVEROS unspecified 909 [facility] [address] [place] [address] hyperlipidemia type [facility] 508 (Primary Dx) [phone] [place], [place] [phone] [address] Social History Tobacco Use Types Packs/Day Years [...] at . Press Option #1 for the [facility], and then press Option #3 for nursing. We are encouraging the use of [employer] to communicate with your HealthCare Provider Medication Changes: - Start Atorvastatin 10 mg every day. Studies Ordered: None. The results from today include: None. Please follow up: With Anh Costa NP in the [facility]. Sincerely, Damian Villanueva MD If you have an urgent need after hours (8:00 am to 5:00 pm) please call [phone] and ask for thecardiology fellow operations tech. documented in this encounter Progress Notes Damian [...] edema or palpitations Patient has had a [facility] CVD screening test in January 2018 - see Padilla NP([facility] CVD Prevention ). Patient wants to discuss [...] 3 ??? azelastine (ASTELIN) 0.1 % spray Vance 2 sprays into both nostrils 2 times [...] daily ??? fluticasone (FLONASE) 50 MCG/ACT spray Vance 2 sprays into both nostrils daily 1 [...] 3 ??? ipratropium (ATROVENT) 0.06 % spray Vance 2 sprays into both nostrils 4 times [...] ??? Myocardial Infarction Maternal Grandfather 82 of [place] ??? Cardiovascular Paternal Grandmother age 65 of heart problems ??? Pneumonia Paternal Grandfather age 70 after flu ??? No Known Problems Son SOCIAL HISTORY: Social History Social History ??? Marital status: Single Spouse name: N/A ??? Number of children: N/A ??? Years of education: N/A Occupational History ??? 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 [...] 1 son - - still working at [employer] - slovenian as a second language - lives in [...] Further follow-up with Nikky Dent NP in [facility]. Damian Villanueva MD, PhD cap maker Division of Cardiology CC Patient Care Team: [...] effects, and when to report to MD automatic grinding machine operator. Patient demonstrated understanding of this information and agreed to call with further questions or concerns. Return Appointment: Patient given instructions regarding scheduling [facility]. Patient demonstrated understanding of this information and agreed to call with further questions or concerns. Patient stated she understood all health information given and agreed to call with further questionsor concerns. Zonia Morrissey LPN documented in this encounter Plan of Treatment Upcoming Encounters Date Type Specialty Care Team Description 09/10/2022 Office Visit Internal Medicine Logeais, MD Margot [address] [place] [address] (Wo rk) documented as of this encounter Visit Diagnoses Diagnosis Hyperlipidemia, unspecified hyperlipidem ia type - Primary documented in this encounter Additional Health Concerns Assessment Noted Time PHQ-9 Depression Total Score: 1 03/30/2018 7:10 AM CDT documented as of this encounter Care Teams Plumbing Designer Relationship Specialty Start Date End Date Lisseth Vang MD PCP - General 04/13/16 11/14/[address] [place] [address] Carlota Acuña MD MD Urology 04/10/[address] [place] [address] Lisseth Vang MD PCP Family Practice 03/30/16 11/14/[address] [place] [address] Michelle Montana RN Registered Nurse Urology 05/07/17 Anh Costa APRN WELDER JOURNEYMAN Nurse Practitioner Nurse Practitioner 10/07 documented as of this encounter
--- OUTSIDE RECORDS SUMMARY | 2022-07-30 20:07 | XMS_ITS | Encounter Summary ---
:1945 Author Organization [place] Address [address] [place] [address]. [place] [address] Care Team Providers Name Role Phone Lisseth Vang MD Primary Care Provider Carlota Landeros MD Unavailable Lisseth Vang MD Unavailable Michelle Montana RN Unavailable Anh Costa APRN MEDICAL LOGISTICS SPECIALIST Unavailable Unavailable Reason for Visit Reason Onset Date Comments Previsit 01/21/2018 No records Encounter Details Date Type Department Care Team Description 01/21/2018 PRE VISIT [facility] Orthopaedic Sabino Romano Pr evisit (No records) Clinic DPM [address] [phone] Social History Tobacco Use Types Packs/Day Years [...] Internal Medicine Margot Branham MD [address] [phone] (Wo rk) documented as of this encounter Visit Diagnoses Not on filedocumented in this encounter Care Teams Pearl Hand Relationship Specialty Start Date End Date Lisseth Vang MD PCP - General 04/13/16 11/14/[address] [place] [address] Carlota Landeros MD MD Urology 04/10/[address] [place], [place] [address] Lisseth Vang MD PCP Family Practice 03/30/16 11/14/[address] [place], [place] [address] Michelle Montana, MODESTA Registered Nurse Urology 05/07/17 Anh Costa APRN MEDICAL LOGISTICS SPECIALIST Nurse Practitioner Nurse Practitioner 10/07 documented as of this encounter
--- OUTSIDE RECORDS SUMMARY | 2022-07-30 20:07 | XMS_ITS | Encounter Summary ---
:1945 Author Organization [facility] Address [address] [facility] [place] [address] Care Team Providers Name Role Phone Lisseth [...] Snoring Essential hypertension Anh Costa APRN CNP [address] [place] [address] Referral ID Status Reason Start Date Expiration Date Visits Requ ested Visits Authorized [id number] Closed 03/25/2018 03/25/2019 1 1 Encounter Details Date Type Department Care Team Description 04/22/2018 Office Visit [facility] Anh Costa APRN C ROUTE SALES ASSOCIATE Suspected sleep apnea (Primary Dx); [facility] Agus Trujillo MD [address] [place] [address] Snoring; [address] Essential hypertension; [facility] Chronic fatigue [address] [place] [address] Social History Tobacco Use Types Packs/Day [...] is considered obese. More than two-thirds of Bangladeshi adults are considered overweight or obese. Being [...] been sent for a sleep evaluation by [facility] for cardiovascular disease prevention. Her medical history is significant for hypertension, hyperlipidemia, osteoarthritis and head tremor. Patient complains of chronic fatigue. She wakes up feeling un refreshed and feels tired during the day. She takes an nap in the afternoon almost every day for 30-60 minutes. Patient's [place] Sleepiness score 4/24 consistent with no daytime sleepiness. Imelda naps 5-6 times per week for 30-60 minutes, feels refreshed after naps. She takes no inadvertantnaps. She denies closing eyes, dozing and falling asleep while driving. 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 . She denies sleep walking as a [...] 3 ??? azelastine (ASTELIN) 0.1 % spray [place] 2 sprays into both nostrils 2 times [...] daily ??? fluticasone (FLONASE) 50 MCG/ACT spray [place] 2 sprays into both nostrils daily 1 [...] 3 ??? ipratropium (ATROVENT) 0.06 % spray [place] 2 sprays into both nostrils 4 times [...] of education: N/A Occupational History ??? 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 [...] 1 son - - still working at [employer] - armenian as a second language - lives in [...] ??? Myocardial Infarction Maternal Grandfather 82 of [place] ??? Cardiovascular Paternal Grandmother age 65 of [...] 27.03 kg/(m^2). Neck Cir (cm): 36 cm [place] Total Score 04/22/2018 Total score - [place] 4 VANESSA Total Score: 11 (04/22/18 0834) [...] Office Visit Internal Medicine LogeaMargot man MD [address] [place] [address] [phone] (Wo rk) documented as of this encounter Results Comprehensive Sleep Study (06/19/2018 8:36 PM CDT) Analysis Performed At Patho logist Time Signature HUMAN RELATIONS PROFESSOR Comprehensive BREEZE PFT Sleep Specimen (Source) Anatomical [...] 6 and weighs 170.0 lbs. Her B SD is 27.3, [place] sleepiness scale 4.0 and neck circumfere nce [...] Diagnostic Codes: Unspecified Sleep Disturbance G47.9 06/19/2018 [facility] y (170.0 lbs) - [...] weighs 170.0 lbs. Her BMI is 27.3, [place] sleepiness scale 4.0 and neck circumference is [...] Diagnostic Codes: Unspecified Sleep Disturbance G47.9 06/19/2018 [facility] (170.0 lbs) - [...] documented as of this encounter Care Teams Nutritionist Public Health Relationship Specialty Start Date End Date Lisseth Vang MD PCP - General 04/13/16 11/14/[address] [place], [place] [address] Carlota Landeros MD MD Urology 04/10/[address] [place], [place] [address] Lisseth Vang MD PCP Family Practice 03/30/16 11/14/[address] [place], [place] [id number] Michelle Montana, MODESTA Registered Nurse Urology 05/07/17 Anh Costa APRN BUSINESS CONSULTANT Nurse Practitioner Nurse Practitioner 10/07 Martinez Galicia MD MD Ophthalmology 04/18/18 [address] [place] [address] documented as of this encounter
--- OUTSIDE RECORDS SUMMARY | 2022-07-30 20:07 | XMS_ITS | Encounter Summary ---
:1945 Author Organization [facility] Address [address] [place] [address]. [place] [address] Care Team Providers Name Role Phone Shanell Baum MD Primary Care Provider Carlota Acuña MD Unavailable Shanell Baum MD Unavailable Michelle Montana RN Unavailable Anh Costa APRN AIRPLANE GASTANK LINER ASSEMBLER Unavailable Unavailable Reason for Visit Reason Comments Consult Establish care. Right great toe nail. Pt stated that she has had bilateral great toe nail removals in J anuary, 2017. Pt stated that she was told that she had an infection in the right great toe nail and has been taking fluconazole. Encounter Details Date Type Department Care Team Description 01/24/2018 Office Visit [facility] Orthopaedic Juan Antonio Dermato phytosis of nail Clinic CARSON Gallo (Primary Dx) [address] [place] [phone] Social History Tobacco Use Types [...] of education: N/A Occupational History ??? 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 [...] 1 son - - still working at [employer] - kinyarwanda as a second language - lives in [...] or aggravating factor. I reviewed notes from [facility] Orth[facility]ics she had with her . OBJECTIVE [...] taking fluconazole. PCP w/ Phone: SHANELL BAUM ([phone]) Pain Assessment Patient Currently in Pain: Denies Current Outpatient Prescriptions Medication Sig Dispense Refill ??? amoxicillin (AMOXIL) 500 MG capsule Take 2 capsules by mouth as needed 1 hour before dental procedures ??? azelastine (ASTELIN) 0.1 % spray [place] 2 sprays into both nostrils 2 times [...] daily. ??? fluticasone (FLONASE) 50 MCG/ACT spray [place] 2 sprays into both nostrils daily 1 [...] 3 ??? ipratropium (ATROVENT) 0.06 % spray [place] 2 sprays into both nostrils 4 times [...] Office Visit Internal Medicine Margot Branham MD [address] [place] [address] (Wo rk) documented as of this encounter Visit Diagnoses Diagnosis Dermatophytosis of nail - Primary documented in this encounter Care Teams Flavoring Machine Operator Relationship Specialty Start Date End Date Shanell Baum MD PCP - General 04/13/16 11/14/[address] [place] [address] Carlota Acuña MD MD Urology 04/10/[address] [place], [place] [address] Shanell Baum MD PCP Family Practice 03/30/16 11/14/[address] [place], [place] [phone] Michelle Montana RN Registered Nurse Urology 05/07/17 Anh Costa APRN AIRPLANE GASTANK LINER ASSEMBLER Nurse Practitioner Nurse Practitioner 10/07 documented as of this encounter
--- OUTSIDE RECORDS SUMMARY | 2022-07-30 20:07 | XMS_ITS | Encounter Summary ---
:1945 Author Organization [facility] Address [address] [place] [address]. [place] [address] Care Team Providers Name Role Phone Lisseth Vang MD Primary Care Provider Carlota Landeros MD Unavailable Lisseth Vang MD Unavailable Michelle Montana RN Unavailable Anh Costa APRN CHANNEL OPENER OUTSOLES Unavailable Unavailable Reason for Visit Reason Comments Medication Refill Encounter Details Date Type Department Care Team Description 01/11/2018 Refill [facility] Carlota Landeros MD Medication Refill for Prostate and Urologic [address] [place] [address] [place], [place] [address] [phone] Social History Tobacco Use Types Packs/Day Years [...] Visit Internal Medicine LogeaisMargot MD [address] [address] (Wo rk) documented as of this encounter Visit Diagnoses Diagnosis Vaginal dryness Other specified symptom associated with female genital organs Screen for colon cancer Special screening for malignant neoplasm s, colon Atrophic vaginitis Postmenopausal atrophic vaginitis documented in this encounter Care Teams Wardrobe Coordinator Relationship Specialty Start Date End Date Lisseth Vang MD PCP - General 04/13/16 11/14/[address] [place] [address] Carlota Landeros MD MD Urology 04/10/[address] [place] [address] Lisseth Vang MD PCP Family Practice 03/30/16 11/14/[address] [place] [address] Michelle Montana RN Registered Nurse Urology 05/07/17 Anh Costa APRN CHANNEL OPENER OUTSOLES Nurse Practitioner Nurse Practitioner 10/07 documented as of this encounter
--- OUTSIDE RECORDS SUMMARY | 2022-07-30 20:07 | XMS_ITS | Encounter Summary ---
:1945 Author Organization [facility] Address [address] [place] [address]. [place] [address] Care Team Providers Name Role Phone Lisseth Vang MD Primary Care Provider Carlota Landeros MD Unavailable Lisseth Vang MD Unavailable Michelle Montana RN Unavailable Anh Costa APRN PORTER SAMPLE CASE Unavailable Unavailable Reason for Visit Diagnostic Imaging Mammo - Closed Specialty Diagnoses / Procedures Referred By Contact Refer red To Contact Diagnoses Visit for screening mammogram Lisseth Vang MD Procedures MA Screen Bilateral w/[place] Screening Digital Bilateral [address] [place], [place] [address] Referral ID Status Reason Start Date Expiration Date Visits Requ ested Visits Authorized [id number] Closed 03/24/2018 03/24/2019 1 1 Encounter Details Date Type Department Care Team Description 04/13/2018 Radiant Appointment [facility] Visit for screening mammogram; Imaging Breast cancer screening [address] [facility], [address]nd [place] [address] Social History Tobacco Use Types [...] Visit Internal Medicine Logdoroteo Margot, MD [address] [address] (Wo rk) documented as of this encounter [...] to schedule an appointment in a Breast Sample Coordinator if she so desires. Code: JOE I have personally reviewed the examinati on and initial interpretation and I agree with the findings. PERI ADAM MD Narrative 04/14/2018 8:33 AM CDT EXAMINATION: Bilateral digital screening mammography and bilateral digital tomosynthesis with computer programming supervisor d detection. COMPARISON: 12/31/2014, 11/27/2013, 12/10/19, 10/08/2010 HISTORY/FAMILY HISTORY: No symptoms, rou randy screening. Family history of ovarian cancer in niece, in her 40s. TECHNIQUE: ??Tomosynthesis BREAST DENSITY: Scattered fibroglandular densities. COMMENTS: There has been no significant change. ?? Procedure Note Peri Adam MD - 04/14/2018 EXAMINATION: Bilateral digital screening mammography and bilateral digital tomosynthesis with computer programming supervisor d detection. COMPARISON: 12/31/2014, 11/27/2013, 12/10/19, 10/08/2010 [...] to schedule an appointment in a Breast Sample Coordinator if she so desires. Code: JOE I [...] documented as of this encounter Care Teams Cinder Crane Operator Relationship Specialty Start Date End Date Lisseth Vang MD PCP - General 04/13/16 11/14/[address] [place], [place] [address] Carlota Landeros MD MD Urology 04/10/[address] [place] [address] Lisseth Vnag MD PCP Family Practice 03/30/16 11/14/[address] [place], [place] [address] Michelle Montana, RN Registered Nurse Urology 05/07/17 Anh Costa, SAND TEMPERER PORTER SAMPLE CASE Nurse Practitioner Nurse Practitioner 10/07 documented as of this encounter
--- OUTSIDE RECORDS SUMMARY | 2022-07-30 20:07 | XMS_ITS | Encounter Summary ---
:1945 Author Organization [facility] Address [address] [place] [address]. [place] [address] Care Team Providers Name Role Phone Lisseth Vang MD Primary Care Provider Carlota Landeros MD Unavailable Lisseth Vang MD Unavailable Michelle Montana RN Unavailable Encounter Details Date Type Department Care Team Description 09/16/2017 Orders Only [facility] for Anh Costa nsive heart Cardiovascular Disease CLAUDIA Marsh BACK WEDGER dis ease without heart Prevention failure [address] [place] [address] Social History Tobacco Use Types Packs/Day [...] Internal Medicine Margot Branham MD [address] [address] (Wo rk) documented as of this encounter Results Basic metabolic panel (03/25/2018 6:46 AM CDT) P athologist Signature Sodium 138 133 - 144 03/25/2018 [facility] mmol/L 7:12 AM CDT [facility] Potassium 4.0 3.4 - 5.3 03/25/2018 [facility] mmol/L 7:12 AM CDT [facility] Chloride 105 94 - 109 03/25/2018 [facility] mmol/L 7:12 AM CDT [facility] Carbon Dioxide 26 20 - 32 03/25/2018 [facility] mmol/L 7:12 AM CDT [facility] Anion Gap 7 3 - 14 03/25/2018 [facility] mmol/L 7:12 AM CDT [facility] Glucose 94 70 - 99 03/25/2018 [facility] mg/dL 7:12 AM CDT [facility] Urea Nitrogen 12 7 - 30 03/25/2018 [facility] mg/dL 7:12 AM T [facility] Creatinine 0.87 0.52 - 03/25/2018 [facility] 1.04 mg/dL 7:12 AM T [facility] GFR Estimate 64 >60 03/25/2018 [place] [facility] mL/min/1.7 7:12 AM CDT [address] Comment: Non GFR Calc GFR Estimate If 77 >60 mL/min/1.7m2 03/25/2018 7:12 A M [facility] OF Black [facility] Comment: GFR Calc Calcium 9.1 8.5 - 10.1 mg/dL 03/25/2018 7:12 AM CDT [facility] Specimen Anatomical Collection Method Collection Time Receive d Time (Source) Location / / Volume Laterality Blood specimen 03/25/2018 6:46 AM 018 6:47 (specimen) CDT AM CDT Anh Costa APRN BACK WEDGER LAB - BLOOD ORDERABLES Performing Organization Address City/State/ZIP Code Phon e Number [facility] [address] [place] [address] [facility] documented in this encounter Visit Diagnoses Diagnosis Hypertensive heart disease without heart failure Unspecified hypertensive [facility] documented in this encounter Care Teams Watch Assembly Inspector Relationship Specialty Start Date End Date Lisseth Vang MD PCP - General 04/13/16 11/14/19 [address] [facility] [address] [place] [address] Carlota Landeros MD MD Urology 04/10/[address] [place] [address] Lisseth Vang MD PCP Family Practice 03/30/16 11/14/[address] [place] [address] Michelle Montana, RN Registered Nurse Urology 05/07/17 documented as of this encounter
--- OUTSIDE RECORDS SUMMARY | 2022-07-30 20:07 | XMS_ITS | Encounter Summary ---
:1945 Author Organization [facility] Address [address] [place] [address]. [place] [address] Care Team Providers Name Role Phone Lisseth Vang MD Primary Care Provider Carlota Landeros MD Unavailable Lisseth Vang MD Unavailable Michelle Montana RN Unavailable Anh Costa APRN PERFORMANCE IMPROVEMENT MANAGER Unavailable Unavailable Reason for Visit Reason Onset Date Comments Refill Request 01/11/2018 Encounter Details Date Type Department Care Team Description 01/11/2018 Refill [facility] Carlota Landeros MD Refill Request for Prostate and Urologic [address] [place] [address] [place] [address] 4th Floor [place] [phone] Social History Tobacco Use Types Packs/Day [...] Office Visit Internal Medicine LogeaMargot man MD [address] [place] [address] (Wo rk) documented as of this [...] deficiency documented in this encounter Care Teams Network Architect Relationship Specialty Start Date End Date Lisseth Vang MD PCP - General 04/13/16 11/14/[address] [place], [place] [address] Carlota Landeros MD MD Urology 04/10/[address] [place], [place] [address] Lisseth Vang MD PCP Family Practice 03/30/16 11/14/[address] [place], [place] [address] Michelle Montana, MODESTA Registered Nurse Urology 05/07/17 Anh Costa APRN PERFORMANCE IMPROVEMENT MANAGER Nurse Practitioner Nurse Practitioner 10/07 documented as of this encounter
--- OUTSIDE RECORDS SUMMARY | 2022-07-30 20:07 | XMS_ITS | Encounter Summary ---
:1945 Author Organization [facility] Address [address] [place] [address]. [place] [address] Care Team Providers Name Role Phone Lisseth Vang MD Primary Care Provider Carlota Landeros MD Unavailable Lisseth Vang MD Unavailable Michelle Montana RN Unavailable Anh Costa APRN CASING MAN Unavailable Unavailable Reason for Visit Diagnostic Imaging Dexa - Closed Specialty Diagnoses / Procedures Referred By Contact Refer red To Contact Diagnoses Disorder of bone and cartilage Lisseth Vang MD Procedures DX Wrist Heel Radius [address] [place], [place] [address] Referral ID Status Reason Start Date Expiration Date Visits Requ ested Visits Authorized [id number] Closed 04/13/2018 04/13/2019 1 1 Encounter Details Date Type Department Care Team Description 04/13/2018 Radiant Appointment [facility] Dago Vang rder of bone and Center Dexa MD Lisseth cartilage [address] [facility] [address] 1[address] Floor [address] [facility], [address] [place] [id number] Social History Tobacco Use Types Packs/Day Years [...] Internal Medicine Margot Branham MD [address] [address] (Wo rk) documented as of this encounter [...] combined report. ?? Adiel Quinn MD, CCD Microbiology Lab Technicianclinical study manager Division of Endocrinology Lisseth Vang MD IMG DEXA ORDERABLES documented in this encounter Visit Diagnoses Diagnosis Disorder of bone and cartilage Disorder of bone and cartilage, unspecif ied documented in this encounter Additional Health Concerns Assessment Noted Time PHQ-9 Depression Total Score: 1 03/30/2018 7:10 AM CDT documented as of this encounter Care Teams Public Works Director Relationship Specialty Start Date End Date Lisseth Vang MD PCP - General 04/13/16 11/14/[address] [place], [place] [address] Carlota Landeros MD MD Urology 04/10/[address] [place] [address] Lisseth Vang MD PCP Family Practice 03/30/16 11/14/[address] [place] [address] Montana, Michelle, RN Registered Nurse Urology 05/07/17 Anh Costa APRN CASING MAN Nurse Practitioner Nurse Practitioner 10/07 documented as of this encounter
--- OUTSIDE RECORDS SUMMARY | 2022-07-30 20:07 | XMS_ITS | Encounter Summary ---
:1945 Author Organization [facility] Address [address] [place] [address]. [place] [address] Care Team Providers Name Role Phone Lisseth Vang MD Primary Care Provider Carlota Landeros MD Unavailable Lisseth Vang MD Unavailable Michelle Montana RN Unavailable Anh Costa APRN DEBURRING AND TOOLING MACHINE OPERATOR Unavailable Unavailable Encounter Details Date Type Department Care Team Description 10/12/2017 Orders Only [facility] and Carlota Landeros A trophic vaginitis; Inst for Prostate and MD Screen for colon cancer; Urologic [place] [address] Seasonal allergies; 9 [facility] [address] Chronic rhinitis; 4th Floor [place], [place] Vaginal dryness; [place] [address] Recurrent cold sores; [address] Vitamin D deficiency [phone] Social History Tobacco Use Types Packs/Day Years [...] Visit Internal Medicine LogeaisMargot MD [address] [facility] [address] [place] [address] (Wo rk) documented as of [...] deficiency documented in this encounter Care Teams Cardroom Supervisor Relationship Specialty Start Date End Date Lisseth Vang MD PCP - General 04/13/16 11/14/[address] [place], [place] [phone] Carlota Landeros MD MD Urology 04/10/[address] [place], [place] [address] Lisseth Vang MD PCP Family Practice 03/30/16 11/14/[address] [place], [place] [address] Michelle Montana RN Registered Nurse Urology 05/07/17 Anh Costa APRN DEBURRING AND TOOLING MACHINE OPERATOR Nurse Practitioner Nurse Practitioner 10/07 documented as of this encounter
--- OUTSIDE RECORDS SUMMARY | 2022-07-30 20:07 | XMS_ITS | Encounter Summary ---
:1945 Author Organization [facility] Address [address] [place] [address]. [place] [address] Care Team Providers Name Role Phone Lisseth Vang MD Primary Care Provider Carlota Landeros MD Unavailable Lisseth Vang MD Unavailable Michelle Montana RN Unavailable Anh Costa APRN, CNP Unavailable Unavailable Encounter Details Date Type Department Care Team Description 03/17/2018 Orders Only [facility] for Anh Costa hypertension Cardiovascular Disease CLAUDIA Marsh CNP (Pr imary Dx) Prevention [address] [place] [phone] Social History Tobacco Use Types Packs/Day [...] 09/10/2022 Office Visit Internal Medicine LogeaisMargot MD [address] [place] [address] (Wo rk) documented as of this encounter Results Albumin Random Urine Quantitative with Creat Ratio (03/25/2018 7:09 AM CDT) P athologist Signature Creatinine 180 mg/dL 03/25/2018 [facility] Urine 7:47 AM CDT [facility] Albumin Urine 9 mg/L 03/25/2018 [facility] mg/L 7:47 AM CDT [facility] Albumin Urine 5.14 0 - 25 03/25/2018 [facility] mg/g Cr mg/g Cr 7:47 AM CDT [facility] Specimen Anatomical Collection Method Collection Time Receive d Time (Source) Location / / Volume Laterality Urine specimen 03/25/2018 7:09 AM 018 7:14 (specimen) CDT AM CDT Anh Costa APRN GALVANIZER ZINC LAB - URINE ORDERABLES Performing Organization Address City/[facility]/ZIP Code Phon e Number [facility] [address] [place] [phone] [facility] CRP cardiac risk (03/25/2018 6:46 AM CDT) P athologist Signature CRP Cardiac 9.3 mg/L 03/25/2018 [facility] Risk 11:28 AM CDT [facility] Comment: Reference Values: Low Risk: ? <1.0 mg/L Average Risk: ? 1.0-3.0 mg/L High Risk: ?>3.0 mg/L Acute Inflammation: >8.0 mg/L Specimen Anatomical Collection Method Collection Time Receive d Time (Source) Location / / Volume Laterality Blood specimen 03/25/2018 6:46 AM 018 6:47 (specimen) CDT AM CDT Anh Costa APRN GALVANIZER ZINC LAB - BLOOD ORDERABLES Performing Organization Address City/State/ZIP Code Phon e Number [facility] [address] documented in this encounter Visit Diagnoses Diagnosis Essential hypertension - Primary Unspecified essential hypertension documented in this encounter Care Teams Fast Food Supervisor Relationship Specialty Start Date End Date Lisseth Vang MD PCP - General 04/13/16 11/14/[address] [place] [address] Carlota Landeros MD MD Urology 04/10/[address] [place] [address] Lisseth Vang MD PCP Family Practice 03/30/16 11/14/[address] [place] [address] Michelle Montana, MODESTA Registered Nurse Urology 05/07/17 Anh Costa APRN GALVANIZER ZINC Nurse Practitioner Nurse Practitioner 10/07 documented as of this encounter
--- OUTSIDE RECORDS SUMMARY | 2022-07-30 20:07 | XMS_ITS | Encounter Summary ---
:1945 Author Organization [place] Address [address] [place] [address]. [place] [address] Care Team Providers Name Role Phone Lisseth Vang MD Primary Care Provider Carlota Landeros MD Unavailable Lisseth Vang MD Unavailable Michelle [place] RN Unavailable Anh Costa APRN CLINICAL DOCUMENTATION MANAGER Unavailable Unavailable [place] Galicia MD Unavailable Sabino Romano DPM Unavailable Kyle Roberts MD Primary Care Provider Mehreen Johnston MD PhD Unavailable [phone] LogeaMargot man MD Unavailable [place] Galicia MD [...] Type Department Care Team Description 04/11/2018 Telephone [facility] for Anh Costa, Lesly ointment (Pt Cardiovascular Disease LEASING PROFESSIONAL CLINICAL DOCUMENTATION MANAGER reque sting [place] Prevention appt with Anh to [address] [facility] discuss test results 5th Floor and is looking at 04/22 [place], [place] [phone] for the appointment. I [phone] wasn't able to schedule, so se nding [...] yes Reason for Call: Other: Pt requesting [place] appt with Anh to discuss test results and is looking at 04/22 for the appointment. I wasn't able to schedule, so sending message per Pt's request to see ifleonidese could be seen for a short appt with Anh. Action Taken: Message routed to: [facility] documented in this encounter Plan of Treatment Upcoming Encounters Date Type Specialty Care Team Description 09/10/2022 Office Visit Internal Medicine Margot Branham MD [address] [facility] [address] [address] [place] [address] (Wo rk) documented as of this encounter Visit Diagnoses Not on filedocumented in this encounter Additional Health Concerns Assessment Noted Time PHQ-9 Depression Total Score: 1 03/30/2018 7:10 AM CDT documented as of this encounter Care Teams Geodetic Survey Director Relationship Specialty Start Date End Date Lisseth Vang, PCP - General 04/13/16 11/14/[address] [place], [place] [address] Kyle Roberts MD PCP - General Family Practice 11/15/19 10/27/[address] [place], [place] [address] Margot Branham MD PCP - General Internal Medicine 10/28/[address] [place] [address] Carlota Landeros MD MD Urology 04/10/[address] [place], [place] [address] Lisseth Vang, JAMAR Family Practice 03/30/[address] [place], [place] [address] [place], MODESTA Registered Nurse Urology 05/07/17 Anh Costa APRN Nurse Practitioner Nurse Practitioner 10/07/17 [place] Hernandez MD Ophthalmology 04/18/[address] [address] Sabino Romano DPM MD Podiatry 08/11/18 [facility] [address] [address] Mehreen Johnston MD Family Practice 11/15/[address] [place] [address] Margot Branham MD MD Internal Medicine 04/17/[address] [place] [address] [place] Galicia, Assigned Surgical 07/26/20 MD Provider [address] [place] [phone] Margot Branham MD Assigned PCP 09/15/[address] [place] [phone] Levy Hussein MD Assigned Surgical 03/23/21 06/14/[address] [place] [address] Provider [place], [place] [phone] Alonso Tejeda MD MD Internal Medicine 06/19/[address] [place] [phone] documented as of this encounter
--- OUTSIDE RECORDS SUMMARY | 2022-07-30 20:07 | XMS_ITS | Encounter Summary ---
:1945 Author Organization [place] Address [address] [place] [address]. [place] [address] Care Team Providers Name Role Phone Lisseth Vang MD Primary Care Provider Carlota Landeros MD Unavailable Lisseth Vang MD Unavailable Michelle Montana RN Unavailable Anh Costa APRN DEMAND PLANNING ANALYST Unavailable Unavailable Encounter Details Date Type Department Care Team Description 03/25/2018 Orders Only [facility] Essential hypertension with goal blood pressure less than 140/90; [address] [place] [address] Hyperlipidemia LDL goal <100 ; 1st Floor Peripheral vascular disease (H); [place], [place] Vitamin D de ficiency; [address] Hypertensive heart disease w [facility] heart failure; [phone] Essential hyper tension; Hyperlipidemia, unspecified hyperlipidemia type; [...] Office Visit Internal Medicine LogeaMargot man MD [address] [place] [phone] (Wo rk) documented as of this encounter [...] (specimen) CDT AM CDT Anh Costa APRN DEMAND PLANNING ANALYST LAB - URINE ORDERABLES Performing Organization Address City/State/ZIP Code Phon e Number [address] [address] [facility] (ABNORMAL) [place] Miscellaneous Test (03/25/2018 6:47 AM CDT) P athologist Signature Result SEE NOTE 03/28/2018 [facility]) 1:41 PM CDT [facility] Comment: (Note) Test name ?R esult [...] by NMR ?S ee Note ? Access Drip In Enhanced Report using either link below: -Direct access: [email or web address] -Enter Username, Password: [email or web address] Username: [email or web address] Password: [email or web address] INTERPRETIVE INFORMATION: LipoFit by [facility] See Compliance Statement B: [employer]/ CS Performed by [employer], [address], [facility] [id number] [email or web address], Valeriano Rich MD, Lab. Director Test Name LIPOFIT BY [facility] 03/25/2018 6:34 AM CDT [facility] Send Outs Misc Test NMRLIPFIT 03/25/2018 6:34 AM C DT [facility] Code [facility] Send Outs Misc Test SERUM 03/25/2018 6:34 AM C DT [facility] Specimen [facility] Specimen Anatomical Collection Method Collection Time Receive d Time (Source) Location / / Volume Laterality 03/25/2018 6:47 AM 8 6:48 CDT AM CDT Anh Costa APRN, CNP LAB - BLOOD ORDERABLES Performing Organization Address City/[facility]/ZIP Code Phon e Number [place] [phone] [facility] NMR Lipo Profile: Laboratory Miscellaneous Order (03/25/2018 6:47 AM CDT) Component Value Ref Test Analysis Performed At Patholo gist Range Method Time Signature Miscellaneous Specimen Received, Reordered and sent to Performing laboratory - Report to follow upon 03/25/2018 [facility] Test completion. 8:14 AM CDT [facility] Specimen Anatomical Collection Method Collection Time Receive d Time (Source) Location / / Volume Laterality Blood specimen 03/25/2018 6:47 AM 018 6:48 (specimen) CDT AM CDT Anh Costa APRN, CNP LAB - BLOOD ORDERABLES Performing Organization Address City/[facility]/ZIP Code Phon e Number [place] [phone] [facility] (ABNORMAL) N terminal pro BNP outpatient (03/25/2018 6:46 AM CDT) P athologist Signature N-Terminal Pro 161 (H) 0 - 125 03/25/2018 [facility] Bnp pg/mL 7:12 AM CDT [facility] Comment: Reference range shown and results [...] LAB - BLOOD ORDERABLES Performing Organization Address City/[facility]/[place]IP [place] [address] [facility] CRP cardiac risk (03/25/2018 6:46 AM CDT) P athologist Signature CRP Cardiac 9.3 mg/L 03/25/2018 [facility] Risk 11:28 AM CDT [facility] Comment: Reference Values: Low Risk: ? <1.0 mg/L Average Risk: ? 1.0-3.0 mg/L High Risk: ?>3.0 mg/L Acute Inflammation: >8.0 mg/L Specimen Anatomical Collection Method Collection Time Receive d Time (Source) Location / / Volume Laterality Blood specimen 03/25/2018 6:46 AM 018 6:47 (specimen) CDT AM CDT Anh Costa APRN, CNP LAB - BLOOD ORDERABLES Performing Organization Address City/[facility]/ZIP Code Phon e Number [facility] [address] [place], [place] [id number] [place] [address] Basic metabolic panel (03/25/2018 6:46 AM CDT) P athologist Signature Sodium 138 133 - 144 03/25/2018 [facility] mmol/L 7:12 AM CDT [facility] Potassium 4.0 3.4 - 5.3 03/25/2018 [facility] mmol/L 7:12 AM T [facility] Chloride 105 94 - 109 03/25/2018 [facility] mmol/L 7:12 AM T [facility] Carbon Dioxide 26 20 - 32 03/25/2018 [facility] mmol/L 7:12 AM T [facility] Anion Gap 7 3 - 14 03/25/2018 [facility] mmol/L 7:12 AM T [facility] Glucose 94 70 - 99 03/25/2018 [facility] mg/dL 7:12 AM T [facility] Urea Nitrogen 12 7 - 30 03/25/2018 [facility] mg/dL 7:12 AM T [facility] Creatinine 0.87 0.52 - 03/25/2018 [facility] 1.04 mg/dL 7:12 AM [facility] GFR Estimate 64 >60 03/25/2018 [place] [facility] mL/min/1.7 7:12 AM T [address] Comment: Non GFR Calc GFR Estimate If 77 >60 mL/min/1.7m2 03/25/2018 7:12 A M [place] [facility] Black [facility] Comment: GFR Calc Calcium 9.1 8.5 - 10.1 mg/dL 03/25/2018 7:12 AM T [facility] Specimen Anatomical Collection Method Collection Time Receive d Time (Source) Location / / Volume Laterality Blood specimen 03/25/2018 6:46 AM 018 6:47 (specimen) CDT AM CDT Anh Costa APRN DEMAND PLANNING ANALYST LAB - BLOOD ORDERABLES Performing Organization Address City/State/ZIP Code Phon e Number [address] [address] [facility] Vitamin D Deficiency Screening (03/25/2018 6:46 AM CDT) P athologist Signature Vitamin D 47 20 - 75 03/25/2018 [facility] Deficiency ug/L 1:16 PM CDT OR MEDICAL screening [facility] Comment: Season, race, dietary intake, and treatm ent affect the concentration of [id number]-Omigipr D. Values may decreas e during winter [...] e Number [facility] [address] [place], [place] [phone] [place] [address] documented in this encounter Visit Diagnoses Diagnosis [...] 130 documented in this encounter Care Teams Bill Poster Installer Relationship Specialty Start Date End Date Lisseth Vang MD PCP - General 04/13/16 11/14/[address] [place], [place] [address] Carlota Landeros MD MD Urology 04/10/[address] [place], [place] [address] Lisseth Vang MD PCP Family Practice 03/30/16 11/14/[address] [place], [place] [address] [place], MODESTA Registered Nurse Urology 05/07/17 Anh Costa APRN CNP Nurse Practitioner Nurse Practitioner 1/4 /18 documented as of this encounter
--- OUTSIDE RECORDS SUMMARY | 2022-07-30 20:07 | XMS_ITS | Encounter Summary ---
:1945 Author Organization [place] Address [address] [place] [address]. [place] [address] Care Team Providers Name Role Phone Lisseth Vang MD Primary Care Provider Carlota Acuañ MD Unavailable Lisseth Vang MD Unavailable [place] RN Unavailable Anh Costa APRN, CNP Unavailable Unavailable Reason for Referral Diagnostic Procedure Outpatient - Closed Specialty Diagnoses / Procedures Referred By Contact Refer red To Contact Diagnoses Snoring Essential hypertension Anh Costa APRN CNP Procedures Spirometry, Breathing Capacity [place] [phone] Referral ID Status Reason Start Date Expiration Date Visits Requ ested Visits Authorized [id number] Closed 03/25/2018 03/25/2019 1 1 - Closed Specialty Diagnoses / Procedures Referred By Contact Refer red To Contact Diagnoses Snoring Essential hypertension Anh Costa APRN CNP [address] [address] Referral ID Status Reason Start Date Expiration Date Visits Requ ested Visits Authorized [id number] Closed 03/25/2018 03/25/2019 1 1 Reason for Visit Reason Comments Lipids Encounter Details Date Type Department Care Team Description 03/25/[address] [facility] for Anh Costa (Primary Dx); Cardiovascular Disease CLAUDIA [place] CNP [facility] ential hypertension Prevention [address] [facility] [address] [place] [address] Social History Tobacco Use Types [...] APRN CNP - 03/25/2018 7:00 AM CDT [facility] Cardiovascular Disease Prevention - Exam Note [...] Medium Reason For Visit Patient here for [facility] early detection of atherosclerosis and CVD exam. [...] but some later in life PGF with NV 65, MGF 82, father 79 with CHF. She feels well with no chest pain, shortness of breath or palpitations. Nutrition assessment per patient report: We discussed my plate and Mediterranean eating patterns and literature was provided. She generallyfollows a mediterranean eating plan but is considering short term of [place] to jump start more weight reduction for [...] daily ??? azelastine (ASTELIN) 0.1 % spray [place] 2 sprays into both nostrils 2 times [...] daily ??? fluticasone (FLONASE) 50 MCG/ACT spray [place] 2 sprays into both nostrils daily 1 Bottle 11 ??? GARLIC PO Take 1 tablet by mouth 3 times daily ??? hydrocortisone (ANUSOL-HC) 2.5 % rectal cream Place rectally 2 times daily 30 g 3 ??? ipratropium (ATROVENT) 0.06 % spray [place] 2 sprays into both nostrils 4 times [...] Infarction Maternal Grandfather 82 of NV ??? Cardiovascular Paternal Grandmother age 65 of heart problems ??? 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 In [employer] her days are active in the summer [...] Visit Internal Medicine Margot Branham MD [address] [address] (Wo rk) Scheduled Referrals Name Type Priority Associated Diagnoses Order S chedule SLEEP EVALUATION & Referral Routine Snoring 1 Occurrences starting MANAGEMENT REFERRAL - Essential hypertens ion 03/25/2018 until ADULT -[facility] 2018 [facility] [phone] (Age 18 and up) documented as of [...] is no t available. Anh Costa APRN CAST ASSOCIATE ECG ORDERABLES Performing Organization Address City/State/ZIP Code Phon e Number RADIOLOGY RESULTS [employer] (03/25/2018) Narrative This result has an attachment that is no t available. Anh Costa APRN, CNP PROCEDURES Spirometry, Breathing Capacity (03/25/2018) P athologist Signature FEV-1 FVC FEV1/FVC FEF 25/75 Narrative This result has an attachment that is no t available. Anh Costa APRN CAST ASSOCIATE PROCEDURES Arterial PulseWave Analysis (03/25/2018) Anatomical Region Laterality Modality Other Narrative This result has an attachment that is no t available. Anh Costa APRN CAST ASSOCIATE SPECIAL IMAGING STUDIES CARDIAC OTHER - HIM [...] hypertension documented in this encounter Care Teams Brake Repairer Hydraulic Relationship Specialty Start Date End Date Lisseth Vang MD PCP - General 04/13/16 11/14/[address] [place] [address] Carlota Acuña MD MD Urology 04/10/[address] [place], [place] [address] Lisseth Vang MD PCP Family Practice 03/30/16 11/14/[address] [place], [place] [address] [place], MODESTA Registered Nurse Urology 05/07/17 Anh Costa APRN CAST ASSOCIATE Nurse Practitioner Nurse Practitioner 10/07 documented as of this encounter
--- OUTSIDE RECORDS SUMMARY | 2022-07-30 20:07 | XMS_ITS | Encounter Summary ---
:1945 Author Organization [place] Address [address] [place] [address]. [place] [address] Care Team Providers Name Role Phone Lisseth Vang MD Primary Care Provider Carlota Landeros MD Unavailable Lisseth Vang MD Unavailable [place] RN Unavailable Anh Costa APRN, CNP Unavailable Unavailable Encounter Details Date Type Department Care Team Description 03/24/[address] [facility] for Anh Costa hypertension (Primary Dx); Cardiovascular Disease CLAUDIA [place] CNP Hyp erlipidemia, unspecified hyperlipidemia type; Prevention CARDIOVASCULAR SCREENING; LD L GOAL LESS THAN 130 [address] [facility] [address] [place] [address] Social History Tobacco Use Types [...] Visit Internal Medicine Margot Branham MD [address] [facility] [address] [place], [place] [address] (Wo rk) documented as of this encounter Results NMR Lipo Profile: Laboratory Miscellaneous Order (03/25/2018 6:47 AM CDT) Component Value Ref Test Analysis Performed At Patholo gist Range Method Time Signature Miscellaneous Specimen Received, Reordered and sent to Performing laboratory - Report to follow upon 03/25/2018 [facility] Test completion. 8:14 AM CDT [facility] Specimen Anatomical Collection Method Collection Time Receive d Time (Source) Location / / Volume Laterality Blood specimen 03/25/2018 6:47 AM 018 6:48 (specimen) CDT AM CDT Anh Costa APRN, CNP LAB - BLOOD ORDERABLES Performing Organization Address City/[facility] Phon e Number [address] [address] [facility] (ABNORMAL) N terminal pro BNP outpatient (03/25/2018 6:46 AM CDT) P athologist Signature N-Terminal Pro 161 (H) 0 - 125 03/25/2018 [facility] [facility] Bnp pg/mL 7:12 AM CDT [facility] Comment: Reference range shown and results flagge [...] Performing Organization Address City/[facility] Phon e Number [address] [address] [facility] documented in this encounter Visit Diagnoses Diagnosis Essential hypertension - Primary Unspecified essential hypertension Hyperlipidemia, unspecified hyperlipidem ia type CARDIOVASCULAR SCREENING; LDL GOAL LESS THAN 130 documented in this encounter Care Teams Air Pumper Relationship Specialty Start Date End Date Lisseth Vang MD PCP - General 04/13/16 11/14/[address] [place] [address] Carlota Landeros MD MD Urology 04/10/[address] [place], [place] [phone] Lisseth Vang MD PCP Family Practice 03/30/16 11/14/[address] [place], [place] [address] [place], MODESTA Registered Nurse Urology 05/07/17 Anh Costa APRN LABORER FILTER PLANT Nurse Practitioner Nurse Practitioner 10/07 documented as of this encounter
--- OUTSIDE RECORDS SUMMARY | 2022-07-30 20:07 | XMS_ITS | Encounter Summary ---
:1945 Author Organization [place] Address [address] [place] [address]. [place] [address] Care Team Providers Name Role Phone Lisseth Vang MD Primary Care Provider Carlota Landeros MD Unavailable Lisseth Vang MD Unavailable [place] RN Unavailable Anh Costa APRN MINERAL ORE PROCESSING LABOURER Unavailable Unavailable Reason for Visit Reason Comments Urgent Care UTI urgency, did take Azo. start ed last night. some burning as well. Encounter Details Date Type Department Care Team Description 11/24/2017 Office Visit [facility], Bladder in fection (Primary Dx); Urgent Care Reed Neal MD Dysuria [place] [address] [facility] [place] [phone] Social History Tobacco Use Types Packs/Day Years [...] Comments Blood Pressure 138/80 11/24/2017 4:33 PM [facility] Pulse 86 11/24/2017 4:33 PM [facility] Temperature 36.6 ??C (97.8 ??F) 11/24/2017 4:33 PM [facility] Respiratory Rate 14 11/24/2017 4:33 PM [facility] Oxygen Saturation 97% 11/24/2017 4:33 PM [facility] Inhaled Oxygen Concentration - - Weight 81.6 kg (180 lb) 11/24/2017 4:33 PM [facility] Height 167.6 cm (5' 6) 11/24/2017 4:33 PM [facility]IR[facility] Body Mass Index 29.05 11/24/2017 4:33 PM [facility]Y/GIRL documented in this encounter Progress Notes Ángel Hernández MD - 11/24/2017 5:00 PM CST Subjective: Patient has a history of frequent urinary tract infections, last one in July, leavingin 2 days for a wedding in [place], last night developed symptoms of frequency and [...] should take the 3 days of antibiotics. BOY/GIRL documented in this encounter Nursing Notes Jena [...] 180 lb (81.6 kg). Medication Reconciliation: complete BOY/GIRL documented in this encounter Plan of Treatment Upcoming Encounters Date Type Specialty Care Team Description 09/10/2022 Office Visit Internal Medicine Margot Branham MD [address] [place] [address] (Wo rk) documented as of this encounter Procedures Procedure Name Priority Date/Time Associated Diagnosis Comme nts URINE CULTURE Routine 11/24/2017 3:50 PM Dysuria Results for this BAT BOY/GIRL procedure are i n the results section. URINE MICROSCOPIC Routine 11/24/2017 3:48 PM Dysuria Resu lts for this BAT BOY/GIRL procedure are i n the results section. documented in this encounter Results Urine Culture Aerobic Bacterial (11/24/2017 3:50 PM [facility]GIR[facility]) [facility] gist Method Time Signature Specimen Midstream INFECTIOUS Description Urine DISEASE DIAGNOSTIC LABORATORY Culture Micro <10,000 colonies/mL 11/25/2017 INFEC TIOUS mixed urogenital fabby 3:06 PM [facility]/GIR[facility] DISEA SE DIAGNOSTIC LABORATORY Specimen (Source) Anatomical Collection Method Collection Time Re ceived Time Location / / Volume Laterality Examination of 11/24/2017 3:50 11/24/2017 4:44 midstream urine PM [facility]IR[facility] PM [facility] specimen (procedure) Ángel Hernández MD LAB - MICRO GENERAL ORDERABL ES Performing Organization Address City/State/ZIP Code Phon e Number INFECTIOUS DISEASES [address] [place] [address] DIAGNOSTIC LABORATORY, [facility] INFECTIOUS DISEASE [address] [place] [address], [facility] DIAGNOSTIC LABORATORY (ABNORMAL) Urine Microscopic (11/24/2017 3:48 PM [facility]GIRL) Patholo gist Method Time Signature WBC Urine O - 2 OTO2^O - 11/24/2017 [facility] 2 /HPF 3:59 PM [facility] [place] RBC Urine 2-5 (A) OTO2^O - 11/24/2017 [facility] 2 /HPF 3:59 PM [facility] [place] Squamous Moderate (A) FEW^Few 11/24/2017 [facility] Epithelial /LPF 3:59 PM [facility] /[facility]rine [facility] Bacteria Urine Few (A) NEG^Negat 11/24/2017 [facility] jennifer /HPF 3:59 PM [facility] [place] Mucous Urine Present (A) NEG^Negat 11/24/2017 [facility] jennifer /LPF 3:59 PM [facility] [place] Comment Urine Interfering 11/24/2017 [facility] substances, 3:59 PM [facility] dipstick not [facility] [place] Comment: COLOR ORANGE CLARITY CLEAR Specimen Anatomical Collection Method Collection Time Receive d Time (Source) Location / / Volume Laterality 11/24/2017 3:48 PM 8 3:51 [facility] PM [facility] Ángel Hernández MD LAB - URINE ORDERABLES Performing Organization Address City/State/ZIP Code Phon e Number [facility] [address] [place] [address] [place] [address] [place] documented in this encounter Visit Diagnoses Diagnosis Bladder infection - Primary Cystitis, unspecified Dysuria documented in this encounter Care Teams Data Processing Operator Relationship Specialty Start Date End Date Lisseth Vang MD PCP - General 04/13/16 11/14/[address] [place], [place] [phone] Carlota Landeros MD MD Urology 04/10/[address] [place], [place] [address] Lisseth Vang MD PCP Family Practice 03/30/16 11/14/[address] [place], [place] [phone] [place] RN Registered Nurse Urology 05/07/17 Anh Costa APRN MINERAL ORE PROCESSING LABOURER Nurse Practitioner Nurse Practitioner 10/07 documented as of this encounter
--- OUTSIDE RECORDS SUMMARY | 2022-07-30 20:07 | XMS_ITS | Encounter Summary ---
:1945 Author Organization [place] Address [address] [place] [address]. [place] [address] Care Team Providers Name Role Phone Lisseth [...] Anh Costa APRN CNP Procedures Echocardiogram Complete [address] [place] [address] Referral ID Status Reason Start Date Expiration Date Visits Requ ested Visits Authorized [id number] Closed 04/12/2018 04/12/2019 1 1 Encounter Details Date Type Department Care Team Description 04/12/2018 Orders Only [facility] for Anh Costa Fatigue , unspecified type (Primary Dx); Cardiovascular Disease CLAUDIA Marsh CNP Pal pitations; Prevention Elevated brain natriuretic p eptide (BNP) level 909 [facility] [address] 5th [place] [address] Social History Tobacco Use Types [...] Visit Internal Medicine Logeais, MD Margot 909 [facility] 4TH [place], [place] [address] (Wo rk) documented as of this encounter Results Echocardiogram Complete (04/22/2018 3:21 PM CDT) Anatomical Region Laterality Modality Echocardiography Specimen (Source) Anatomical Collection Method Collection Time Re ceived Time Location / / Volume Laterality 04/22/2018 3:02 PM CDT Narrative 04/22/2018 4:34 PM CDT [id number]^TALIA^ANH^RAMIN [facility] Diagnostic and Treamtent-3rd Floor 909 [facility] [place] [address] Name: IMELDA GARCIA : 1945 Study Date: [...] note might be different from the original. [id number]^TALIA^ANH^RAMIN [facility] Diagnostic and Treamtent-3rd Floor 909 [place] [address] Name: IMELDA GARCIA : 1945 Study Date: 04/22/2018 03:02 PM Age: 72 yrs Gender: Female Patient Location: [facility] Reason For Study: Fatigue, unspecified t ype, [...] documented as of this encounter Care Teams Engraver Apprentice Decorative Relationship Specialty Start Date End Date Lisseth Vang MD PCP - General 04/13/16 11/14/[address] [place], [place] [address] Carlota Landeros MD MD Urology 04/10/[address] [place], [place] [address] Lisseth Vang MD PCP Family Practice 03/30/16 11/14/[address] [place], [place] [address] Michelle Montana, MODESTA Registered Nurse Urology 05/07/17 Anh Costa APRN CNP Nurse Practitioner Nurse Practitioner 10/07 documented as of this encounter
--- OUTSIDE RECORDS SUMMARY | 2022-07-30 20:07 | XMS_ITS | Encounter Summary ---
:1945 Author Organization [place] Address [address] [place] [address]. [place] [address] Care Team Providers Name Role Phone Lisseth Vang MD Primary Care Provider Carlota Landeros MD Unavailable Lisseth Vang MD Unavailable Michelle Montana RN Unavailable Anh Costa APRN SHIPPER/RECEIVER Unavailable Unavailable Martinez Galicia MD Unavailable Sabino Romano DPM Unavailable Kyle Roberts MD Primary Care Provider Mehreen Johnston MD PhD Unavailable [phone] LogeaMargot man MD Unavailable Martinez Galicia MD Unavailable LogMargot sadler MD Unavailable LogMargot sadler MD Primary Care Provider Levy Hussein MD Unavailable Alonso Tejeda MD Unavailable Reason for Visit Reason Onset Date Comments Call Back 04/11/2018 Encounter Details Date Type Department Care Team Description 04/11/2018 Telephone [facility] Urology and Inst Carlota Landeros MD Call Back for Prostate and Urologic [address] [place], [place] [address] [place], [place] [phone] (Work) 4th Floor [place], [place] [phone] Social History Tobacco Use [...] discuss what's going on Michelle Montana RN Wig Sales Consultant Urology Telephone Encounter - Clayton Kapoor - [...] routed to: [facility] UROLOGY ADULT [facility] documented in this encounter Plan of Treatment Upcoming Encounters Date Type Specialty Care Team Description 09/10/2022 Office Visit Internal Medicine Margot Branham MD [address] [address] (Wo rk) documented as of this encounter Visit Diagnoses Not on filedocumented in this encounter Additional Health Concerns Assessment Noted Time PHQ-9 Depression Total Score: 1 03/30/2018 7:10 AM CDT documented as of this encounter Care Teams Financial Analysis Manager Relationship Specialty Start Date End Date Lisseth Vang, PCP - General 04/13/16 11/14/[address] [place], [place] [address] Kyle Roberts MD PCP - General Family Practice 11/15/19 10/27/[address] [place], [place] [address] Margot Branham MD PCP - General Internal Medicine 10/28/[address] [place] [address] Carlota Landeros MD MD Urology 04/10/[address] [place], [place] [address] Lisseth Vang, JAMAR Family Practice 03/30/[address] [place], [place] [address] Michelle Montana, MODESTA Registered Nurse Urology 05/07/17 Anh Costa APRN Nurse Practitioner Nurse Practitioner 10/07/17 Martinez Hernandez MD Ophthalmology 04/18/[address] [phone] Sabino Romano DPM MD Podiatry 08/11/18 [facility] [address] [address] Mehreen Johnston MD Family Practice 11/15/[address] [place] [address] Margot Branham MD MD Internal Medicine 04/17/[address] [place] [phone] Martinez Galicia, Assigned Surgical 07/26/20 MD Provider [address] [place] [phone] Margot Branham MD Assigned PCP 09/15/[address] [place] [address] [phone] Levy Hussein MD Assigned Surgical 03/23/21 06/14/[address] [place] [address] Provider [place], [place] [address] Alonso Tejeda MD MD Internal Medicine 06/19/[address] [place] [phone] documented as of this encounter
--- OUTSIDE RECORDS SUMMARY | 2022-07-30 20:08 | XMS_ITS | Encounter Summary ---
:1945 Author Organization [place] Address [address] [place] [address]. [place] [address] Care Team Providers Name Role Phone Lisseth Vang MD Primary Care Provider Carlota Landeros MD Unavailable Lisseth Vang MD Unavailable Reason for Visit Reason Comments Medication Refill estradiol (ESTRING) 2 MG Encounter Details Date Type Department Care Team Description 02/23/2017 Refill [facility] MD Juvencio (estradiol (ESTRING) 2 9 [facility] [address] [place] [address] ) 4th [place], [place] [address] [phone] Social History Tobacco Use Types Packs/Day Years [...] Internal Medicine Margot Branham MD [address] [phone] (Wo rk) documented as of this encounter [...] hyperlipidemia documented in this encounter Care Teams Third Hand Relationship Specialty Start Date End Date Lisseth Vang MD PCP - General 04/13/16 11/14/[address] [place], [place] [phone] Carlota Landeros MD MD Urology 04/10/[address] [place], [place] [address] Lisseth Vang MD PCP Family Practice 03/30/16 11/14/[address] [place], [place] [phone] documented as of this encounter
--- OUTSIDE RECORDS SUMMARY | 2022-07-30 20:08 | XMS_ITS | Encounter Summary ---
:1945 Author Organization [place] Address [address] [facility] [place] [address] Care Team Providers Name Role Phone Lisseth Vang MD Primary Care Provider Carlota Landeros MD Unavailable Luz Maria Kelly MD Unavailable Lisseth Vang MD Unavailable Reason for Referral Audiology - Closed Specialty Diagnoses / Procedures Referred By Contact Refer red To Contact Diagnoses Hearing loss, unspecified laterality Lisseth Vang MD [address] [place], [place] [address] Referral ID Status Reason Start Date Expiration Date Visits Requ ested Visits Authorized [id number] Closed 01/28/2017 01/28/2018 1 1 Encounter Details Date Type Department Care Team Description 01/28/2017 Orders Only [facility] Allie Vang lo , [facility] MD Lisseth unspecified laterality [place] [address] [place] (Primary Dx) [facility] [address] [place], [place] 3RD FLR,[address] [phone] [facility] 88 (Work) [place], [place] [address] [phone] Social History Tobacco Use Types Packs/Day Years [...] Internal Medicine Margot Branham MD [address] [address] (Wo rk) Scheduled Referrals Name Type Priority Associated Diagnoses Order S chedule AUDIOLOGY ADULT Referral Routine Hearing loss, Ordered: REFERRAL unspecified laterality documented as of this encounter Visit Diagnoses Diagnosis Hearing loss, unspecified laterality - P rimary documented in this encounter Care Teams Seasonal Clerk Relationship Specialty Start Date End Date Lisseth Vang MD PCP - General 04/13/16 11/14/[address] [place], [place] [address] Carlota Landeros MD MD Urology 04/10/[address] [place], [place] [address] Luz Maria Kelly MD MD Internal Medicine 03/27/16 02/22/17 Lisseth Vang MD PCP Family Practice 03/30/16 11/14/[address] [place], [place] [address] documented as of this encounter
--- OUTSIDE RECORDS SUMMARY | 2022-07-30 20:08 | XMS_ITS | Encounter Summary ---
:1945 Author Organization [place] Address 2450 [facility] [place] [address] Care Team Providers Name Role Phone Lisseth Vang MD Primary Care Provider Carlota Landeros MD Unavailable Luz Maria Kelly MD Unavailable Lisseth aVng MD Unavailable Reason for Visit Reason Onset Date Comments Patient Request 07/21/2016 Encounter Details Date Type Department Care Team Description 07/21/2016 Telephone [facility] Women[facility] Nurse, U [facility] Patient Request [place] 60 24[facility] Professional Bldg [facility] 88 3rd Flr,[facility] 300 [place], [place] [phone] Social History Tobacco Use [...] to ask her what she can take ferry terminal agent for constipation. I will forward to Dr Khanna and Yamileth said we can mychart her the recommendations. She has used metamucil in past and made her burp all the time. documented in this encounter Plan of Treatment Upcoming Encounters Date Type Specialty Care Team Description 09/10/2022 Office Visit Internal Medicine Margot Branham MD [address] [place] [address] (Wo rk) documented as of this encounter Visit Diagnoses Not on filedocumented in this encounter Care Teams Legal Entity Controller Relationship Specialty Start Date End Date Lisseth Vang MD PCP - General 04/13/16 11/14/[address] [place] [address] Carlota Landeros MD MD Urology 04/10/[address] [place], [place] [address] Luz Maria Kelly MD MD Internal Medicine 03/27/16 02/22/17 Lisseth Vang MD PCP Family Practice 03/30/16 11/14/[address] [place] [address] documented as of this encounter
--- OUTSIDE RECORDS SUMMARY | 2022-07-30 20:08 | XMS_ITS | Encounter Summary ---
:1945 Author Organization [place] Address [address] [place] [address]. [place] [address] Care Team Providers Name Role Phone Lisseth Vang MD Primary Care Provider Carlota Landeros MD Unavailable Luz Maria Kelly MD Unavailable Lisseth Vang MD Unavailable Reason for Visit Reason Comments Blood Draw Patient here for blood work for Elevated glucose Encounter Details Date Type Department Care Team Description 07/22/2016 Orders Only [facility] Anh Costa Elevat ed glucose; [facility] FOLDER MACHINE OPERATOR CLAY HOISTER Essential hypertension with goal blood pressure less than 130/85 9 [place] [address] Social History Tobacco Use Types [...] Visit Internal Medicine Logeais, MD Margot [address] [address] (Wo rk) documented as of this encounter [...] quantitative random urine (07/22/2016 12:52 PM CDT) [facility] Method Time Signature Creatinine 103 mg/dL [place] Urine [facility] Albumin Urine <5 mg/L [place] mg/L [facility] Albumin Urine Unable to 0 - 25 [place] mg/g Cr calculate due mg/g Cr [facility] to low value [facility] Specimen Anatomical Collection Method Collection Time Receive d Time (Source) Location / / Volume Laterality Urine specimen 07/22/2016 12:52 6 (specimen) PM CDT 12:54 PM CDT Anh Costa APRN, CNP LAB - URINE ORDERABLES Performing Organization Address City/State/ZIP Code Phon e Number M [facility] [address] [address] [facility] [address] [place] [address], U [phone] Hemoglobin A1c (07/22/2016 12:50 PM CDT) P athologist Signature Hemoglobin A1C 5.4 4.3 - 6.0 [facility] Specimen Anatomical Collection Method Collection Time Receive d Time (Source) Location / / Volume Laterality Blood specimen 07/22/2016 12:50 6 (specimen) PM CDT 12:54 PM CDT Anh Costa APRN, CNP LAB - BLOOD ORDERABLES Performing Organization Address City/State/ZIP Code Phon e Number [address] [address] [facility] Comprehensive metabolic panel (07/22/2016 12:50 PM CDT) P athologist Signature Sodium 142 133 - 144 [facility] mmol/L [facility] Potassium 4.3 3.4 - 5.3 [facility] mmol/L [facility] Chloride 109 94 - 109 [facility] mmol/L [facility] Carbon Dioxide 26 20 - 32 [facility] mmol/L [facility] Anion Gap 7 3 - 14 [facility] mmol/L [facility] Glucose 98 70 - 99 [facility] mg/dL [facility] Urea Nitrogen 10 7 - 30 [facility] mg/dL [facility] Creatinine 0.83 0.52 - [facility] 1.04 mg/dL [facility] GFR Estimate 68 >60 [facility] mL/min/1.7 [place] m2 [facility] Comment: Non GFR Calc GFR Estimate If Black 83 >60 mL/min/1.7m2 U [facility] Comment: GFR Calc Calcium 8.7 8.5 - 10.1 mg/dL [facility] Bilirubin Total 0.7 0.2 - 1.3 mg/dL [facility] Albumin 3.6 3.4 - 5.0 g/dL [facility] Protein Total 6.8 6.8 - 8.8 g/dL [facility] Alkaline Phosphatase 92 40 - 150 U/L [facility] ALT 21 0 - 50 U/L [facility] AST 16 0 - 45 U/L [facility] Specimen Anatomical Collection Method Collection Time Receive d Time (Source) Location / / Volume Laterality Blood specimen 07/22/2016 12:50 6 (specimen) PM CDT 12:54 PM CDT Anh Costa APRN, CNP LAB - BLOOD ORDERABLES Performing Organization Address City/State/ZIP Code Phon e Number [facility] 909 [place] [address] [facility] CRP cardiac risk (07/22/2016 12:50 PM CDT) P athologist Signature CRP Cardiac 4.9 mg/L [facility] Comment: Reference Values: Low Risk: ? [...] Phon e Number [facility] [address] [place], [place] [phone] [place] [address] (ABNORMAL) Lipid panel reflex to direct LDL (07/22/2016 12:50 PM CDT) athologist Signature Cholesterol 243 (H) <200 mg/dL [facility] Comment: Desirable: <200 mg/dl Triglycerides 193 (H) <150 mg/dL [facility] Comment: Borderline high: ??150-199 mg/dl High: ? 200-499 mg/dl Very high: ? >499 mg/dl HDL Cholesterol 64 >49 mg/dL [facility] LDL Cholesterol Calculated 141 (H) <100 mg/dL [facility] Comment: Above desirable: ??100-129 mg/dl Borderline High: ??130-159 mg/dL High: ? 160-189 mg/dL Very high: ? >189 mg/dl Non HDL Cholesterol 179 (H) <130 mg/dL [facility] Comment: Above Desirable: ??130-159 mg/dl Borderline high: ??160-189 mg/dl High: ? 190-219 mg/dl Very high: ? >219 mg/dl Specimen Anatomical Collection Method Collection Time Receive d Time (Source) Location / / Volume Laterality Blood specimen 07/22/2016 12:50 6 (specimen) PM CDT 12:54 PM CDT Anh Costa APRN CLAY HOISTER LAB - BLOOD ORDERABLES Performing Organization Address City/State/ZIP Code Phon e Number [address] [address] [facility] documented in this encounter Visit Diagnoses Diagnosis Elevated glucose Other abnormal glucose Essential hypertension with goal blood p ressure less than 130/85 documented in this encounter Care Teams Flue Blower Relationship Specialty Start Date End Date Lisseth Vang MD PCP - General 04/13/16 11/14/[address] [place] [address] Carlota Landeros MD MD Urology 04/10/[address] [place] [address] Luz Maria Kelly MD MD Internal Medicine 03/27/16 02/22/17 Lisseth Vang MD PCP Family Practice 03/30/16 11/14/[address] [place], [place] [address] documented as of this encounter
--- OUTSIDE RECORDS SUMMARY | 2022-07-30 20:08 | XMS_ITS | Encounter Summary ---
:1945 Author Organization [place] Address [address] [place] [address]. [place] [address] Care Team Providers Name Role Phone Lisseth [...] for Prostate and MD Done Urologic [place] [address] 4th [place] [address] [phone] Social History Tobacco Use Types Packs/Day Years [...] Internal Medicine Margot Branham MD [address] [address] (Wo rk) documented as of this encounter Visit Diagnoses Not on filedocumented in this encounter Care Teams Cut Off Saw Tender Metal Relationship Specialty Start Date End Date Lisseth Vang MD PCP - General 04/13/16 11/14/[address] [place], [place] [phone] Carlota Landeros MD MD Urology 04/10/[address] [place], [place] [address] Luz Maria Kelly MD MD Internal Medicine 03/27/16 02/22/17 Lisseth Vang MD PCP Family Practice 03/30/16 11/14/[address] [place], [place] [address] documented as of this encounter
--- OUTSIDE RECORDS SUMMARY | 2022-07-30 20:08 | XMS_ITS | Encounter Summary ---
:1945 Author Organization [place] Address [address] [place] [address]. [place] [address] Care Team Providers Name Role Phone Lisseth Vang MD Primary Care Provider Carlota Landeros MD Unavailable Luz Maria Kelly MD Unavailable Lisseth Vang MD Unavailable Reason for Visit Reason Comments RECHECK interstim check Encounter Details Date Type Department Care Team Description 02/17/2017 Office Visit [facility] Urology and Carlota Landeros U rgbeba incontinence of urine (Primary Dx); Inst for Prostate and MD Urinary urgency Urologic [place] [address] 909 [facility] 100 4th [place] [phone] Social History Tobacco Use Types Packs/Day Years [...] Visit Internal Medicine Margot Branham MD [address] [address] (Wo rk) Scheduled Orders Name Type Priority Associated Diagnoses Order S chedule Bridget-Operative Procedures Routine Urge incontinence of Order ed: 02/17/2017 Worksheet (Urology urine General) Urinary urgency documented as of this encounter Visit Diagnoses Diagnosis Urge incontinence of urine - Primary Urge incontinence Urinary urgency Urgency of urination documented in this encounter Care Teams Overnight Houseperson Relationship Specialty Start Date End Date Lisseth Vang MD PCP - General 04/13/16 11/14/[address] [place], [place] [address] Carlota Landeros MD MD Urology 04/10/[address] [place], [place] [address] Luz Maria Kelly MD MD Internal Medicine 03/27/16 02/22/17 Lisseth Vang MD PCP Family Practice 03/30/16 11/14/[address] [place], [place] [address] documented as of this encounter
--- OUTSIDE RECORDS SUMMARY | 2022-07-30 20:08 | XMS_ITS | Encounter Summary ---
:1945 Author Organization [place] Address [address] [place] [address]. [place] [address] Care Team Providers Name Role Phone Lisseth Vang MD Primary Care Provider Carlota Landeros MD Unavailable Luz Maria Kelly MD Unavailable Lisseth Vang MD Unavailable Reason for Visit Reason Onset Date Comments Nurse Advice Line 01/25/2017 Encounter Details Date Type Department Care Team Description 01/25/2017 Telephone [facility] Urology and Dee Landeros MD Nurse Advice Line Inst for Prostate and [address] Urologic [place] 100 [address] [place], [place] [phone] [place] [address] [place] [address] Social History Tobacco Use Types Packs/Day Years Used Date Smoking Tobacco: Never Smokeless Tobacco: Never Alcohol Use Standard Drinks/Week Comments Yes 0 (1 standard drink = 0.6 oz pure alcoho l) wine few times/wk Sex Assigned at Date Recorded Female 12/20/2018 4:10 PM CDT documented as of this encounter Miscellaneous Notes Telephone Encounter - Noehmy Carpenter LPN - 01/25/2017 1:43 PM CDT [...] Visit Internal Medicine LogMargot sadler MD [address] [place] [phone] (Wo rk) documented as of this encounter Visit Diagnoses Not on filedocumented in this encounter Care Teams Wood Grainer Relationship Specialty Start Date End Date Lisseth Vang MD PCP - General 04/13/16 11/14/[address] [place], [place] [address] Carlota Landeros MD MD Urology 04/10/[address] [place], [place] [address] Luz Maria Kelly MD MD Internal Medicine 03/27/16 02/22/17 Lisseth Vang MD PCP Family Practice 03/30/16 11/14/[address] [place], [place] [address] documented as of this encounter
--- OUTSIDE RECORDS SUMMARY | 2022-07-30 20:08 | XMS_ITS | Encounter Summary ---
:1945 Author Organization [place] Address [address] [place] [address]. [place] [address] Care Team Providers Name Role Phone Lisseth Vang MD Primary Care Provider Carlota Landeros MD Unavailable Lisseth Vang MD Unavailable Encounter Details Date Type Department Care Team Description 04/27/2017 Hospital [facility] Carlota Landeros Ov eractive bladder and Procedure [facility] (Primary Dx) [facility] [address] 9 [facility] [address] [place], [place] 5th Floor [address] [place], [place] [phone] [address] (Work) [phone] Social History Tobacco Use Types Packs/Day Years [...] Stein RN - 04/27/2017 12:26 PM CDT [facility] Home Care [...] clear liquids such as apple juice, tricia jnaina, broth or 7-Up. Rest may also help. [...] is: Dr. Carlota Landeros, Prostate and Urology: [phone] Or dial [phone] and ask for the resident weatherization crew leader for: Urology For emergency care, call the: [facility]: [phone] (TTY for hearing impaired: [phone]) documented in this encounter Medications at Time [...] daily for 5 days azelastine (ASTELIN) 0.1 [place] 2 sprays into 90 mL 1 01/03/2018 [...] (H), Vitamin D deficiency fluticasone (FLONASE) 50 [place] 2 sprays into 1 Bottle 1 01/03/2018 [...] times daily creamIndications: External hemorrhoids ipratropium (ATROVENT) [place] 2 sprays into 1 Box 6 05/201607/27/2017 [...] Visit Internal Medicine Margot Branham MD [address] [place] [phone] (wo rk) documented as of this encounter Procedures Procedure Name Priority Date/Time Associated Diagnosis Comme nts REPLACEMENT, PULSE 04/27/2017 11:15 AM Urinary Urgency and GENERATOR, NEUROSTIMULATOR CDT Urge Incontine nce Special Needs //Confirmed Nani [place]er. 04/23 lmLatex AllergyH&P to be Completed by Primary Care Physician EKG CARDIAC - HIM SCAN 09/01/2007 12:00 AM SENIOR ADVISOR documented in this encounter Results EKG CARDIAC - HIM SCAN (09/01/2007 12:00 AM SENIOR ADVISOR) Specimen (Source) Anatomical Location Collection Method / [...] Pre-procedure documented in this encounter Care Teams Reconciliation Specialist Relationship Specialty Start Date End Date Lisseth Vang MD PCP - General 04/13/16 11/14/[address] [place], [place] [address] Carlota Landeros MD MD Urology 04/10/[address] [place] [address] Lisseth Vang MD PCP Family Practice 03/30/16 11/14/[address] [place], [place] [address] documented as of this encounter
--- OUTSIDE RECORDS SUMMARY | 2022-07-30 20:08 | XMS_ITS | Encounter Summary ---
:1945 Author Organization [place] Address [address] [place] [address]. [place] [address] Care Team Providers Name Role Phone Lisseth Vang MD Primary Care Provider Carlota Landeros MD Unavailable Lisseth Vang MD Unavailable Encounter Details Date Type Department Care Team Description 04/27/2017 Anesthesia Event M [facility] Surgery and [facility] MD Mark [address] [place] [address] [address]th [place] [address] Anesthesia Record Procedure Summary Procedure [...] Visit Internal Medicine Margot Branham MD [address] [address] (Wo rk) documented as of this encounter [...] Intra-op documented in this encounter Care Teams Coin Rolling Machine Operator Relationship Specialty Start Date End Date Lisseth Vang MD PCP - General 04/13/16 11/14/[address] [place], [place] [phone] Carlota Landeros MD MD Urology 04/10/[address] [place], [place] [address] Lisseth Vang MD PCP Family Practice 03/30/[address] [place], [place] [address] documented as of this encounter
--- OUTSIDE RECORDS SUMMARY | 2022-07-30 20:08 | XMS_ITS | Encounter Summary ---
:1945 Author Organization [place] Address [address] [place] [address]. [place] [address] Care Team Providers Name Role Phone Lisseth Vang MD Primary Care Provider Carlota Landeros MD Unavailable Lisseth Vang MD Unavailable Michelle Montana RN Unavailable Reason for Visit Audiology (Routine) - Closed Specialty Diagnoses / Procedures Referred By Contact Refer red To Contact Audiology Diagnoses TIN- per Pt- stated Dierkling wanted TIN Referring Dr, Unknown, [facility] Procedures TINNITUS EVALUATION [facility] [address] [place] [phone] Phone: Fax: Referral ID Status Reason Start Date Expiration Date Visits V isits Requested Authorized CSC - AUD/DE LEON Closed 05/14/2017 10/03/[phone] ([id number]) Encounter Details Date Type Department Care Team Description 05/19/2017 Office Visit [facility] Audiology Latanya Quintana, Sensorineural hearing loss, bilateral (Primary Dx); [address] [place] [address] AuD Tinnitus of both ears [address]th [address] [place] [phone] Social History Tobacco Use Types [...] old, was seen in Audiology at the [facility] [place] on 05/19/2017 for a tinnitus evaluation. Yamileth [...] regarding these results or recommendations. Rudy Covarrubias Physical Therapist Aide [place] License #[id number] documented in this encounter Plan of Treatment Upcoming Encounters Date Type Specialty Care Team Description 09/10/2022 Office Visit Internal Medicine LogeaMargot man MD [address] [place] [address] (Wo rk) documented as of this encounter Procedures Procedure Name Priority Date/Time Associated Diagnosis Comme nts HC AUD EVOKED Routine 05/19/2017 2:54 PM Sensorineural hearing OTOACOUSTIC EMISSIONS, CDT loss, jose ateral COMPREHENSIVE Tinnitus of both ears documented in this encounter Visit Diagnoses Diagnosis Sensorineural hearing loss, bilateral - Primary Tinnitus of both ears Unspecified tinnitus documented in this encounter Care Teams Caramel Candy Maker Relationship Specialty Start Date End Date Lisseth Vang MD PCP - General 04/13/16 11/14/[address] [place], [place] [address] Carlota Landeros MD MD Urology 04/10/[address] [place], [place] [address] Lisseth Vang MD PCP Family Practice 03/30/16 11/14/[address] [place], [place] [address] Michelle Montana, RN Registered Nurse Urology 05/07/17 documented as of this encounter
--- OUTSIDE RECORDS SUMMARY | 2022-07-30 20:08 | XMS_ITS | Encounter Summary ---
:1945 Author Organization [place] Address [address] [place] [address]. [place] [address] Care Team Providers Name Role Phone Lisseth Vang MD Primary Care Provider Carlota Landeros MD Unavailable Lisseth Vang MD Unavailable Michelle Montana RN Unavailable Reason for Visit Reason Onset Date Comments Pre Visit Planning - Done 05/10/2017 Encounter Details Date Type Department Care Team Description 05/10/2017 [facility]ISIT [facility] and Carlota Landeros P re Visit Planning - Inst for Prostate and MD Done Urologic Cancers [address]th [place] [phone] Social History Tobacco Use Types Packs/Day Years Used Date Smoking Tobacco: Never Smokeless Tobacco: Never Alcohol Use Standard Drinks/Week Comments Yes 0 (1 standard drink = 0.6 oz pure alcoho l) wine few times/wk Sex Assigned at Date Recorded Female 12/20/2018 4:10 PM CDT documented as of this encounter Miscellaneous Notes Telephone Encounter - Nohemy Carpenter LPN - 05/10/2017 9:18 AM CDT Patient with history of interstim device with battery coming in for post operative check up S/Preplacement of interstim battery. Patient chart reviewed, no need for call, all records available and ready for appointment. documented in this encounter Plan of Treatment Upcoming Encounters Date Type Specialty Care Team Description 09/10/2022 Office Visit Internal Medicine Margot Branham MD [address] [address] (Wo rk) documented as of this encounter Visit Diagnoses Not on filedocumented in this encounter Care Teams Mitten Stitcher Relationship Specialty Start Date End Date Lisseth Vang MD PCP - General 04/13/16 11/14/[address] [place], [place] [address] Carlota Landeros MD MD Urology 04/10/[address] [place], [place] [address] Lisseth Vang MD PCP Family Practice 03/30/16 11/14/[address] [place], [place] [address] Michelle Montana, RN Registered Nurse Urology 05/07/17 documented as of this encounter
--- OUTSIDE RECORDS SUMMARY | 2022-07-30 20:08 | XMS_ITS | Encounter Summary ---
:1945 Author Organization [place] Address [address] [place] [address]. [place] [address] Care Team Providers Name Role Phone Lisseth Vang MD Primary Care Provider Carlota Acuña MD Unavailable Luz Maria Kelly MD Unavailable Lisseth Vang MD Unavailable Reason for Visit Reason Comments Lipids Encounter Details Date Type Department Care Team Description 07/24/2016 Office Visit [facility] for Anh Costa hypertension with goal blood pressure less than 140/90 (Primary Dx); Cardiovascular Disease CLAUDIA Marsh APPLIANCE ADJUSTER Hyp erlipidemia LDL goal <100; Prevention Other specified peripheral v ascular diseases (H) ; 909 [facility] Vitamin D deficiency 5th [place] [address] Social History Tobacco Use Types [...] this encounter Progress Notes Anh Costa, CLAUDIA APPLIANCE ADJUSTER - 07/24/2016 8:11 AM CDT Active Problems [...] 09/23/2009 Reason For Visit Patient here for [facility] early detection of atherosclerosis and CVD exam. Pain Evaluation Current history of pain associated with this visit is as follows denied RITO Yamilteh Sheikh is a 70 year old year old female with a history of high blood pressure hypertension and hyperlipidemia with elevated triglycerides. She began taking perindopril 2 mg per day for hypertension and reduced arterial compliance last year and is tolerating this well. She does report an infrequent cough but not consistent with KAILYN cough at this time. She was seen in [facility] in June for hysteroscopy and was found [...] ??? azelastine (ASTELIN) 0.1 % nasal spray [place] 1-2 sprays into both nostrils daily as needed 90 mL1 ??? ipratropium (ATROVENT) 0.06 % nasal spray [place] 2 sprays into both nostrils 4 times [...] ??? Myocardial Infarction Maternal Grandfather 82 [place] ??? Cardiovascular Paternal Grandmother age 65 of [...] 135/80 mmHg Assessment Cardiovascular: Recent ECG at [facility] in June viewed sinus rhythm rate 72 [...] SYSTEM SYMPTOMS: No MENTAL HEALTH SYMPTOMS: No IT PROFESSIONAL documented in this encounter Plan of Treatment Upcoming Encounters Date Type Specialty Care Team Description 09/10/2022 Office Visit Internal Medicine LogeaMargot man MD [address] [place] [id number] (Wo rk) documented as of this encounter [...] [facility] Deficiency ug/L 1:16 PM CDT [facility] Comment: Season, race, dietary intake, and treatm ent affect the concentration of 28-dgznzzx-Xbfehjj D. Values may decreas e during winter [...] Organization Address City/State/ZIP Code Phon e Number [facility] [address] [place] [address] [facility] Spirometry, Breathing Capacity (in clinic) [...] deficiency documented in this encounter Care Teams Geographic Information Systems Manager Relationship Specialty Start Date End Date Lisseth Vang MD PCP - General 04/13/16 11/14/[address] [place], [place] [address] Carlota Acuña MD MD Urology 04/10/[address] [place], [place] [address] Luz Maria Kelly MD MD Internal Medicine 03/27/16 02/22/17 Lisseth Vang MD PCP Family Practice 03/30/16 11/14/19 [facility] [address] [place] [address] documented as of this encounter
--- OUTSIDE RECORDS SUMMARY | 2022-07-30 20:08 | XMS_ITS | Encounter Summary ---
:1945 Author Organization [place] Address [address] [place] [address]. [place] [address] Care Team Providers Name Role Phone Lisseth Vang MD Primary Care Provider Carlota Landeros MD Unavailable Lisseth Vang MD Unavailable Michelle Montana RN Unavailable Reason for Visit Reason Comments RECHECK Patient to come into clinic with full bladder for Flow/RU. Encounter Details Date Type Department Care Team Description 08/11/2017 Office Visit [facility] Urology and Carlota Landeros U [facility] Inst for Prostate and MD (Primary Dx) Urologic [place]ancers [address] 909 [facility] 100 4th [place] [phone] Social History Tobacco Use Types Packs/Day Years [...] Comments Blood Pressure 151/79 08/11/2017 1:38 PM COMPUTER NUMERIC CONTROL SETTER Pulse 69 08/11/2017 1:38 PM COMPUTER NUMERIC CONTROL SETTER Temperature - - Respiratory Rate - - Oxygen Saturation - - Inhaled Oxygen Concentration - - Weight 82.6 kg (182 lb) 08/11/2017 1:38 PM COMPUTER NUMERIC CONTROL SETTER Height 167.6 cm (5' 6) 08/11/2017 1:38 PM COMPUTER NUMERIC CONTROL SETTER Body Mass Index 29.38 08/11/2017 1:38 PM COMPUTER NUMERIC CONTROL SETTER documented in this encounter Patient Instructions Patient [...] leaving completely satisfied with your care experience. UTER NUMERIC CONTROL SETTER documented in this encounter Progress Notes Carlota [...] -- Melo Butler MD Urology Resident pgr: [phone] 1:17 PM, 08/11/2017 Patient was seen, evaluated and plan was formulated in conjunction with me and I agree with the above. Carlota Landeros MD UTER NUMERIC CONTROL SETTER documented in this encounter Nursing Notes Gaby Mckeon CMA - 08/11/2017 1:15 PM CST Chief Complaint Patient presents with ??? RECHECK Patient to come into clinic with full bladder for Flow/RU. Gaby Mckeon UTER NUMERIC CONTROL SETTER documented in this encounter Plan of Treatment Upcoming Encounters Date Type Specialty Care Team Description 09/10/2022 Office Visit Internal Medicine Margot Branham MD [address] [place] [address] (Wo rk) documented as of this encounter Procedures Procedure Name Priority Date/Time Associated Diagnosis Comme nts HC MEASURE POST-VOID Routine 08/11/2017 2:56 PM Urinary retent ion RESIDUAL URINE/BLADDER COMPUTER NUMERIC CONTROL SETTER CAPACITY, US NON-IMAGING HC COMPLEX UROFLOWMETRY Routine 08/11/2017 2:56 PM Urinary ret ention COMPUTER NUMERIC CONTROL SETTER documented in this encounter Visit Diagnoses Diagnosis Urinary retention - Primary Retention of urine, unspecified documented in this encounter Care Teams Hand Deicer Element Winder Relationship Specialty Start Date End Date Lisseth Vang MD PCP - General 04/13/16 11/14/[address] [place], [place] [phone] Carlota Landeros MD MD Urology 04/10/[address] [place], [place] [address] Lisseth Vang MD PCP Family Practice 03/30/16 11/14/[address] [place], [place] [phone] Michelle Montana, MODESTA Registered Nurse Urology 05/07/17 documented as of this encounter
--- OUTSIDE RECORDS SUMMARY | 2022-07-30 20:08 | XMS_ITS | Encounter Summary ---
:1945 Author Organization [place] Address [address] [place] [address] Care Team Providers Name Role Phone Lisseth Vang MD Primary Care Provider Carlota Landeros MD Unavailable Lisseth Vang MD Unavailable Michelle Montana RN Unavailable Reason for Visit Reason Onset Date Comments Refill Request 07/27/2017 ipratriopium Encounter Details Date Type Department Care Team Description 07/27/2017 Refill [facility] Women's Nurse, [facility] Refill Request [facility] [place] (ipratriopium ) [address] [place] Professional Bldg [facility] [address] [place], [place] [phone] Social History Tobacco Use Types Packs/Day [...] Visit Internal Medicine Margot Branham MD [address] [address] (Wo rk) documented as of this encounter [...] deficiency documented in this encounter Care Teams Boiler House Supervisor Relationship Specialty Start Date End Date Lisseth Vang MD PCP - General 04/13/16 11/14/[address] [place], [place] [address] Carlota Landeros MD MD Urology 04/10/[address] [place], [place] [address] Lisseth Vang MD PCP Family Practice 03/30/16 11/14/[address] [place], [place] [address] Michelle Montana, MODESTA Registered Nurse Urology 05/07/17 documented as of this encounter
--- OUTSIDE RECORDS SUMMARY | 2022-07-30 20:08 | XMS_ITS | Encounter Summary ---
:1945 Author Organization [place] Address [facility] [place] [address] Care Team Providers Name Role Phone Lisseth Vang MD Primary Care Provider Carlota Landeros MD Unavailable Luz Maria Kelly MD Unavailable Lisseth Vang MD Unavailable Reason for Visit Reason Onset Date Comments Refill Request 12/03/2016 flonase Encounter Details Date Type Department Care Team Description 12/03/2016 Refill [facility] Women's Nurse, [facility] Refill Request (flonase) Clinic [place] [address] Professional Bldg [facility] [address] [place], [place] [phone] Social History Tobacco Use Types Packs/Day [...] received for Flonase, unable to refill per [facility] RN protocol, will send to Dr. Vang UITER SPECIALIST documented in this encounter Plan of Treatment Upcoming Encounters Date Type Specialty Care Team Description 09/10/2022 Office Visit Internal Medicine Margot Branham MD [address] [address] (Wo rk) documented as of this encounter Visit Diagnoses Diagnosis Seasonal allergic rhinitis - Primary Allergic rhinitis, cause unspecified Chronic rhinitis documented in this encounter Care Teams Wind Field Manager Relationship Specialty Start Date End Date Lisseth Vang MD PCP - General 04/13/16 11/14/[address] [place], [place] [address] Carlota Landeros MD MD Urology 04/10/[address] [place], [place] [address] Luz Maria Kelly MD MD Internal Medicine 03/27/16 02/22/17 Lisseth Vang MD PCP Family Practice 03/30/16 11/14/[address] [place], [place] [address] documented as of this encounter
--- OUTSIDE RECORDS SUMMARY | 2022-07-30 20:08 | XMS_ITS | Encounter Summary ---
:1945 Author Organization [place] Address [address] [facility] [place] [address] Care Team Providers Name Role Phone Lisseth Vang MD Primary Care Provider Carlota Landeros MD Unavailable Luz Maria Kelly MD Unavailable Lisseth Vang MD Unavailable Reason for Visit Reason Onset Date Comments Refill Request 09/11/2016 nasal spray Encounter Details Date Type Department Care Team Description 09/11/2016 Refill [facility] Women's Nurse, p [facility] Refill Request (nasal [facility] [place] spray ) [address] [facility] Professional Bldg [facility] [address] [place], [place] [phone] Social History Tobacco Use Types Packs/Day Years Used Date Smoking Tobacco: Never Smokeless Tobacco: Never Alcohol Use Standard Drinks/Week Comments Yes 0 (1 standard drink = 0.6 oz pure alcoho l) wine few times/wk Sex Assigned at Date Recorded Female 12/20/2018 4:10 PM CDT documented as of this encounter Miscellaneous Notes Telephone Encounter - Nicki Gracia RN - 09/11/2016 1:[address] Vang approved and sent. Notified patient that Rx was approved. ING MANAGER Telephone Encounter - Nicki Gracia RN - 09/11/2016 1:26 PM CST Pt. Calling for request refill of nasal spray that was orgininally prescribed by Dr. Johnston. Nurse pended refill to Dr. Vang ING MANAGER documented in this encounter Plan of Treatment Upcoming Encounters Date Type Specialty Care Team Description 09/10/2022 Office Visit Internal Medicine Margot Branham MD [address] [place] [phone] (Wo rk) documented as of this encounter Visit Diagnoses Diagnosis Seasonal allergic rhinitis, unspecified allergic rhinitis trigger - Primary Screen for colon cancer Special screening for malignant neoplasm s, colon Chronic rhinitis Vaginal dryness Other specified symptom associated with female genital organs Atrophic vaginitis Postmenopausal atrophic vaginitis Recurrent cold sores Herpes simplex without mention of compli cation Vitamin D deficiency Unspecified vitamin D deficiency documented in this encounter Care Teams Professional Services Manager Relationship Specialty Start Date End Date Lisseth Vang MD PCP - General 04/13/16 11/14/[address] [place], [place] [address] Carlota Landeros MD MD Urology 04/10/[address] [place], [place] [address] Luz Maria Kelly MD MD Internal Medicine 03/27/16 02/22/17 Lisseth Vang MD PCP Family Practice 03/30/16 11/14/[address] [place], [place] [phone] documented as of this encounter
--- OUTSIDE RECORDS SUMMARY | 2022-07-30 20:08 | XMS_ITS | Encounter Summary ---
:1945 Author Organization [place] Address [address] [place] [address]. [place] [address] Care Team Providers Name Role Phone Lisseth Vang MD Primary Care Provider Carlota Landeros MD Unavailable Luz Maria Kelly MD Unavailable Lisseth Vang MD Unavailable Reason for Visit Reason Onset Date Comments Refill Request 07/23/2016 Procto foam Encounter Details Date Type Department Care Team Description 07/23/2016 Refill [facility] Primary Care Luz Maria Kelly, Refill Request (Pro[facility] Clinic foam) [address] [place] [address] [address]th [place] [phone] Social History Tobacco Use Types Packs/Day Years [...] Internal Medicine Margot Branham MD [address] [address] (Wo rk) documented as of this encounter Visit Diagnoses Diagnosis External hemorrhoids - Primary External hemorrhoids without mention of complication documented in this encounter Care Teams Continuous Towel Roller Relationship Specialty Start Date End Date Lisseth Vang MD PCP - General 04/13/16 11/14/[address] [place] [address] Carlota Landeros MD MD Urology 04/10/[address] [place], [place] [address] Luz Maria Kelly MD MD Internal Medicine 03/27/16 02/22/17 Lisseth Vang MD PCP Family Practice 03/30/16 11/14/[address] [place] [address] documented as of this encounter
--- OUTSIDE RECORDS SUMMARY | 2022-07-30 20:08 | XMS_ITS | Encounter Summary ---
:1945 Author Organization [place] Address [address] [place] [address]. [place] [address] Care Team Providers Name Role Phone Lisseth Vang MD Primary Care Provider Carlota Landeros MD Unavailable Luz Maria Kelly MD Unavailable Lisseth Vang MD Unavailable Encounter Details Date Type Department Care Team Description 08/07/2016 Orders Only [facility] Anh Costa nsive heart Cardiovascular Disease Sal[place], BOILER MECHANIC DRESS FITTER dis ease without heart Prevention failure (Primary Dx) [address] [place] [phone] Social History Tobacco Use Types Packs/Day [...] Visit Internal Medicine LogeaMargot man MD [address] [address] (Wo rk) documented as of this encounter Visit Diagnoses Diagnosis Hypertensive heart disease without heart failure - Primary Unspecified hypertensive heart disease w ithout heart failure documented in this encounter Care Teams Forecast Analyst Relationship Specialty Start Date End Date Lisseth Vang MD PCP - General 04/13/16 11/14/[address] [place], [place] [phone] Carlota Landeros MD MD Urology 04/10/[address] [place], [place] [address] Luz Maria Kelly MD MD Internal Medicine 03/27/16 02/22/17 Lisseth Vang MD PCP Family Practice 03/30/16 11/14/[address] [place] [address] documented as of this encounter
--- OUTSIDE RECORDS SUMMARY | 2022-07-30 20:08 | XMS_ITS | Encounter Summary ---
:1945 Author Organization [place] Address [address] [place] [address]. [place] [address] Care Team Providers Name Role Phone Lisseth Vang MD Primary Care Provider Carlota Landeros MD Unavailable Lisseth Vang MD Unavailable Michelle [place] RN Unavailable Reason for Visit Reason Onset Date Comments Results 07/13/2017 Encounter Details Date Type Department Care Team Description 07/13/2017 Telephone [facility] Urgent Shane Ryan, [facility] [address] [phone] [place], [place] [phone] (Wo rk) Social History Tobacco Use Types [...] Visit Internal Medicine Margot Branham MD [address] [address] (Wo rk) documented as of this encounter Visit Diagnoses Diagnosis Dysuria - Primary documented in this encounter Care Teams Strategy Execution Consultant Relationship Specialty Start Date End Date Lisseth Vang MD PCP - General 04/13/16 11/14/[address] [place], [place] [address] Carlota Landeros MD MD Urology 04/10/[address] [place], [place] [address] Lisseth Vang MD PCP Family Practice 03/30/16 11/14/[address] [place], [place] [address] Michelle [place], MODESTA Registered Nurse Urology 05/07/17 documented as of this encounter
--- OUTSIDE RECORDS SUMMARY | 2022-07-30 20:08 | XMS_ITS | Encounter Summary ---
:1945 Author Organization [place] Address [address] [place] [address]. [place] [address] Care Team Providers Name Role Phone Lisseth Vang MD Primary Care Provider Carlota Landeros MD Unavailable Luz Maria Kelly MD Unavailable Lisseth Vang MD Unavailable Encounter Details Date Type Department Care Team Description 08/03/[address] [facility] Anh Costa hypertension Cardiovascular Disease Sal[place], CLAUDIA BOWLING ALLEY OPERATOR wit h goal blood Prevention pressure less than 909 [facility] 140/90 (Primary Dx) 5th [place] [address] Social History Tobacco Use Types [...] Visit Internal Medicine LogMargot sadler MD [address] [facility] [address] [place] [address] (Wo rk) documented as of this encounter Visit Diagnoses Diagnosis Essential hypertension with goal blood p ressure less than 140/90 - Primary documented in this encounter Care Teams Sanitation Laborer Relationship Specialty Start Date End Date Lisseth Vang MD PCP - General 04/13/16 11/14/[address] [place] [address] Carlota Landeros MD MD Urology 04/10/[address] [place], [place] [address] Luz Maria Kelly MD MD Internal Medicine 03/27/16 02/22/17 Lisseth Vang MD PCP Family Practice 03/30/16 11/14/[address] [place] [address] documented as of this encounter
--- OUTSIDE RECORDS SUMMARY | 2022-07-30 20:08 | XMS_ITS | Encounter Summary ---
:1945 Author Organization [place] Address [address] [place] [address]. [place] [address] Care Team Providers Name Role Phone Lisseth Vang MD Primary Care Provider Carlota Landeros MD Unavailable Lisseth Vang MD Unavailable Michelle Montana RN Unavailable Reason for Visit Reason Comments Surgical Followup post operative check up S/P replacement of interstim battery Encounter Details Date Type Department Care Team Description 05/19/2017 Office Visit [facility] Urology and Carlota Landeros U rinary urgency (Primary Dx); Inst for Prostate and Urge incontinence of urine Urologic Cancers [address] [facility] 100 4th [place] [phone] Social History Tobacco Use Types Packs/Day Years [...] 0 ??? fluticasone (FLONASE) 50 MCG/ACT spray [place] 2 sprays into both nostrils daily 1 Bottle 1 ??? azelastine (ASTELIN) 0.1 % spray [place] 2 sprays into both nostrils 2 times [...] ??? ipratropium (ATROVENT) 0.06 % nasal spray [place] 2 sprays into both nostrils 4 times [...] Visit Internal Medicine Margot Branham MD [address] [place] [address] [phone] (Wo rk) documented as of this encounter Visit Diagnoses Diagnosis Urinary urgency - Primary Urgency of urination Urge incontinence of urine Urge incontinence documented in this encounter Care Teams Yeast Stacker Relationship Specialty Start Date End Date Lisseth Vang MD PCP - General 04/13/16 11/14/[address] [place], [place] [phone] Carlota Landeros MD MD Urology 04/10/[address] [place] [address] Lisseth Vang MD PCP Family Practice 03/30/16 11/14/[address] [place] [address] Michelle Montana, MODESTA Registered Nurse Urology 05/07/17 documented as of this encounter
--- OUTSIDE RECORDS SUMMARY | 2022-07-30 20:08 | XMS_ITS | Encounter Summary ---
:1945 Author Organization [place] Address [address] [place] [address]. [place] [address] Care Team Providers Name Role Phone Lisseth [...] for Prostate and MD Done Urologic Cancers [address] 4th [place] [address] [phone] Social History Tobacco Use Types Packs/Day Years [...] Visit Internal Medicine Margot Branham MD [address] [address] (Wo rk) documented as of this encounter Visit Diagnoses Not on filedocumented in this encounter Care Teams Bricklayer Apprentice Relationship Specialty Start Date End Date Lisseth Vang MD PCP - General 04/13/16 11/14/[address] [place], [place] [phone] Carlota Landeros MD MD Urology 04/10/[address] [place], [place] [address] Lisseth Vang MD PCP Family Practice 03/30/16 11/14/[address] [place], [place] [address] Michelle Montana, MODESTA Registered Nurse Urology 05/07/17 documented as of this encounter
--- OUTSIDE RECORDS SUMMARY | 2022-07-30 20:08 | XMS_ITS | Encounter Summary ---
:1945 Author Organization [place] Address [address] [place] [address]. [place] [address] Care Team Providers Name Role Phone Lisseth Vang MD Primary Care Provider Carlota Landeros MD Unavailable Luz Maria Kelly MD Unavailable Lisseth Vang MD Unavailable Reason for Visit Reason Onset Date Comments Prior Auth - Medication 07/31/2016 PROCTOFOAM-HC - Denied Encounter Details Date Type Department Care Team Description 07/31/2016 Telephone [facility] Primary Care Quita Apodaca RN P bostonr Auth - Medication Clinic (PROCTOFOAM-HC - Denied [address] [place] [address] ) [address] [place] [address] Social History Tobacco Use Types [...] % cream) was sent to the pharmacy RAM WRITER Telephone Encounter - Luz Maria Kelly MD - 08/18/2016 11:22 AM CST Filled medication. Let me know what else I can do. Luz Maria Villar MD RAM WRITER Telephone Encounter - Phyllis Olivier - 08/13/2016 4:02 PM CST Images from the original note were not included. [facility] Prior Authorization Team PRIOR AUTHORIZATION DENIED Medication: PROCTOFOAM-HC - Denied Denial Date: 08/13/2016 Denial Rational: PA was denied for not failing formulary alternative or having a contraindication to the alternative:Proctosol HCL 2.5% cream. An appeal is available and will require a letter of medical mecessity. Appeal Allowed/Information: RAM WRITER Telephone Encounter - Lisa Parada - 08/06/2016 3:27 PM CDT Images from the original note were not included. Insurance wanting additional information: Telephone Encounter - Lisa Parada - 08/06/2016 12:07 PM CDT Images from the original note were not included. [facility] Prior Authorization Team PA Initiation Medication: PROCTOFOAM-HC Insurance Company: [facility] Filling the Rx: [facility] - [address] [place] [address] Filling Pharmacy Filling Pharmacy Fax: Start Date: 08/06/2016 documented in this encounter Plan of Treatment Upcoming Encounters Date Type Specialty Care Team Description 09/10/2022 Office Visit Internal Medicine Margot Branham MD [address] [facility] 4TH [place], [place] [address] (Wo rk) documented as of this encounter Visit Diagnoses Diagnosis External hemorrhoids - Primary External hemorrhoids without mention of complication documented in this encounter Care Teams Fly Rail Operator Relationship Specialty Start Date End Date Lisseth Vang MD PCP - General 04/13/16 11/14/[address] [place], [place] [phone] Carlota Landeros MD MD Urology 04/10/[address] [place], [place] [address] Luz Maria Kelly MD MD Internal Medicine 03/27/16 02/22/17 Lisseth Vang MD PCP Family Practice 03/30/16 11/14/[address] [place], [place] [phone] documented as of this encounter
--- OUTSIDE RECORDS SUMMARY | 2022-07-30 20:08 | XMS_ITS | Encounter Summary ---
:1945 Author Organization [facility] Address [address] [place] [address]. [place] [address] Care Team Providers Name Role Phone Lisseth Vang MD Primary Care Provider Carlota Landeros MD Unavailable Lisseth Vang MD Unavailable Encounter Details Date Type Department Care Team Description 04/27/2017 Surgery [facility] Surgery and Carlota Landeros R eplacement of Left Procedure Center Interstim Battery 909 [facility] [place] [address] [place] Latex Allergy 5th Floor 100 [place] [address] [phone] (Wo rk) Surgery Details Date/Time Status Location [...] Sanders RN - 04/27/2017 12:26 PM CDT [facility] Home [...] is: Dr. Carlota Landeros, Prostate and Urology: [phone] Or dial [phone] and ask for the resident environmental engineer for: Urology For emergency care, call the: [facility]: [phone] (TTY for hearing impaired: [phone]) documented in this encounter Medications at Time [...] daily for 5 days azelastine (ASTELIN) 0.1 [place] 2 sprays into 90 mL 1 01/03/2018 [...] (H), Vitamin D deficiency fluticasone (FLONASE) 50 [place] 2 sprays into 1 Bottle 1 01/03/2018 [...] times daily creamIndications: External hemorrhoids ipratropium (ATROVENT) [place] 2 sprays into 1 Box 6 05/201607/27/2017 [...] Internal Medicine Margot Branham MD [address] [phone] (Wo rk) documented as of this encounter Procedures Procedure Name Priority Date/Time Associated Diagnosis Comme nts REPLACEMENT, PULSE 04/27/2017 11:15 AM Urinary Urgency and GENERATOR, NEUROSTIMULATOR CDT Urge Incontine nce Special Needs //Confirmed Nani Baer. 04/23 lmLatex AllergyH&P to be Completed by Primary Care Physician EKG CARDIAC - HIM SCAN 09/01/2007 12:00 AM CLAY DRY PRESS MIXER OPERATOR documented in this encounter Results EKG CARDIAC - HIM SCAN (09/01/2007 12:00 AM CLAY DRY PRESS MIXER OPERATOR) Specimen (Source) Anatomical Location Collection Method / [...] Pre-procedure documented in this encounter Care Teams Zipper Machine Operator Relationship Specialty Start Date End Date Lisseth Vang MD PCP - General 04/13/16 11/14/[address] [place] [address] Carlota Landeros MD MD Urology 04/10/[address] [place], [place] [address] Lisseth Vang MD PCP Family Practice 03/30/16 11/14/[address] [place], [place] [phone] documented as of this encounter
--- OUTSIDE RECORDS SUMMARY | 2022-07-30 20:08 | XMS_ITS | Encounter Summary ---
:1945 Author Organization [facility] Address [address] [place] [address]. [place] [address] Care Team Providers Name Role Phone Lisseth Vang MD Primary Care Provider Carlota Landeros MD Unavailable Lisseth Vang MD Unavailable Reason for Visit Reason Onset Date Comments Pre Visit Planning - Done 05/04/2017 Encounter Details Date Type Department Care Team Description 05/04/2017 PRE VISIT [facility]rology and Carlota Landeros P re Visit Planning - Inst for Prostate and MD Done Urologic Cancers [address] 4th [place] [phone] Social History Tobacco Use Types Packs/Day Years [...] Visit Internal Medicine Margot Branham MD [address] [address] (Wo rk) documented as of this encounter Visit Diagnoses Not on filedocumented in this encounter Care Teams Larder Cook Relationship Specialty Start Date End Date Lisseth Vang MD PCP - General 04/13/16 11/14/[address] [place], [place] [address] Carlota Landeros MD MD Urology 04/10/[address] [place], [place] [address] Lisseth Vang MD PCP Family Practice 03/30/16 11/14/[address] [place], [place] [address] documented as of this encounter
--- OUTSIDE RECORDS SUMMARY | 2022-07-30 20:08 | XMS_ITS | Encounter Summary ---
:1945 Author Organization [place] Address [address] [place] [address]. [place] [address] Care Team Providers Name Role Phone Lisseth [...] and MD Unable To Reach Urologic Cancers [address] 4th [place] [phone] Social History Tobacco Use Types Packs/Day Years [...] into clinic with full bladder for Flow/RU. P BLENDER documented in this encounter Plan of Treatment Upcoming Encounters Date Type Specialty Care Team Description 09/10/2022 Office Visit Internal Medicine Margot Branham MD [address] [address] (Wo rk) documented as of this encounter Visit Diagnoses Not on filedocumented in this encounter Care Teams Before And After School Daycare Worker Relationship Specialty Start Date End Date Lisseth Vang MD PCP - General 04/13/16 11/14/[address] [place], [place] [address] Carlota Landeros MD MD Urology 04/10/[address] [place], [place] [address] Lisseth Vang MD PCP Family Practice 03/30/16 11/14/[address] [place], [place] [address] Michelle Montana, RN Registered Nurse Urology 05/07/17 documented as of this encounter
--- OUTSIDE RECORDS SUMMARY | 2022-07-30 20:08 | XMS_ITS | Encounter Summary ---
:1945 Author Organization [facility] Address [address] [place] [address]. [place] [address] Care Team Providers Name Role Phone Lisseth Vang MD Primary Care Provider Carlota Landeros MD Unavailable Lisseth Vang MD Unavailable Michelle Montana RN Unavailable Reason for Visit Reason Comments Urinary Problem Encounter Details Date Type Department Care Team Description 07/10/2017 Office Visit [facility] Parul Cross R, Dys uria (Primary Dx); [facility] [place] PAReta Nonspecific finding on examination of ur ine; [place] [address] Acute cystitis without hematuria [address] [place] [address] [phone] Social History Tobacco Use Types Packs/Day Years [...] She was previously seen by clinic in [place], [place] last Wednesday (1 week ago) for same sx and was prescribed Bactrim BID x 10 days, which she has been taking, but states her sx have not resolved. She states the clinic in [place] prescribedher Bactrim before the UA results were [...] Office Visit Internal Medicine LogeaisMargot MD [address] [place] [phone] (Wo rk) documented as of this encounter [...] Value Ref Test Analysis Performed At [facility] gist Range Method Time Signature Specimen Midstream Urine [facility] Culture Micro 10,000 to 50,000 colonies/mL 017 [facility] Coagulase negative Staphylococcus 9:55 P M CDT [facility] (A) [facility] Specimen (Source) Anatomical Collection Method [...] Organization Address City/State/ZIP Code Phon e Number [address] [address] [place] Urine Microscopic (07/10/2017 7:41 PM CDT) P athologist Signature WBC Urine O - 2 OTO2^O - 2 07/10/2017 [facility] /HPF 7:52 PM CDT [facility] RBC Urine O - 2 OTO2^O - 2 07/10/2017 [facility] /HPF 7:52 PM CDT [facility] Specimen Anatomical Collection Method Collection Time Receive d Time (Source) Location / / Volume Laterality 07/10/2017 7:41 PM 7 7:42 CDT PM CDT Ángel Hernández MD LAB - URINE ORDERABLES Performing Organization Address City/State/ZIP Code Phon e Number [facility] [address] [place] [address] [place] (ABNORMAL) UA reflex to Microscopic (07/10/2017 7:41 PM CDT) Patholo gist Method Time Signature Color Urine Colleen 07/10/2017 [facility] 7:52 PM CDT [facility] Appearance Urine Clear 07/10/2017 [facility] 7:52 PM CDT [facility] Glucose Urine Negative NEG^Negat 07/10/2017 [place] jennifer mg/dL 7:52 PM CDT [facility] Bilirubin Urine Negative NEG^Negat 07/10/2017 [place] jennifer 7:52 PM CDT [facility] Ketones Urine Negative NEG^Negat 07/10/2017 [place] jennifer mg/dL 7:52 PM CDT [facility] Specific Ethel 1.025 1.003 - 07/10/2017 [place] Urine 1.035 7:52 PM CDT [facility] Blood Urine Negative NEG^Negat 07/10/2017 [place] jennifer 7:52 PM CDT [facility] pH Urine 6.0 5.0 - 7.0 07/10/2017 [place] pH 7:52 PM CDT [facility] Protein Albumin Negative NEG^Negat 07/10/2017 [place] Urine jennifer mg/dL 7:52 PM CDT [facility] Urobilinogen 0.2 0.2 - 1.0 07/10/2017 [place] Urine EU/dL 7:52 PM CDT [facility] Nitrite Urine Positive (A) NEG^Negat 07/10/2017 [place] jennifer 7:52 PM CDT [facility] Leukocyte Negative NEG^Negat 07/10/2017 [place] Esterase Urine jennifer 7:52 PM CDT [facility] Source Midstream 07/10/2017 [place] Urine 7:52 PM CDT [facility] Specimen (Source) Anatomical Collection Method Collection Time Re ceived Time Location / / Volume Laterality Examination of 07/10/2017 7:41 07/10/2017 7:42 midstream urine PM CDT PM CDT specimen (procedure) Ángel Hernández MD LAB - URINE ORDERABLES Performing Organization Address City/State/ZIP Code Phon e Number [facility] [address] [place] [address] [place] documented in this encounter Visit Diagnoses Diagnosis Dysuria - Primary Nonspecific finding on examination of ur ine Other nonspecific finding on examination of urine Acute cystitis without hematuria Acute cystitis documented in this encounter Care Teams House Father Relationship Specialty Start Date End Date Lisseth Vang MD PCP - General 04/13/16 11/14/[address] [place] [address] Carlota Landeros MD MD Urology 04/10/[address] [place] [address] Lisseth Vang MD PCP Family Practice 03/30/16 11/14/[address] [place] [address] Michelle Montana, MODESTA Registered Nurse Urology 05/07/17 documented as of this encounter
--- OUTSIDE RECORDS SUMMARY | 2022-07-30 20:09 | XMS_ITS | Encounter Summary ---
:1945 Author Organization [facility] Address [address] [place] [address]. [place] [address] Care Team Providers Name Role Phone Mehreen Johnston MD PhD Primary Care Provider [phone] Reason for Visit Reason Comments Clinic Care Coordination - Follow-up Encounter Details Date Type Department Care Team Description 03/18/2015 Care Coordination UROLOGY CLINIC AND Gela Montana ESKO FOR MODESTA Martinez Coordination - PROSTATE AND [phone] Follow-up UROLOGIC CANCERS (Work) [facility] 4TH FLOOR, [address] [facility] [address] [place] [phone] Social History Tobacco Use Types Packs/Day Years Used Date Smoking Tobacco: Never Smokeless Tobacco: Never Alcohol Use Standard Drinks/Week Comments Yes 0 (1 standard drink = 0.6 oz pure alcoho l) wine few times/wk Sex Assigned at Date Recorded Female 12/20/2018 4:10 PM CDT documented as of this encounter Progress Notes Michelle Montana RN - 03/18/2015 3:41 PM CDT Pre-op physical scheduled for 03/19/15 Post op appointment - 04/10/15 at 1015 Pt has no questions Michelle Montana RN [employer] Teacher Urology Michelle Montana RN - 03/18/2015 3:35 PM CDT Left message to call to discuss surgical procedure Michelle Montana RN [employer] Teacher Urology documented in this encounter Plan of Treatment Upcoming Encounters Date Type Specialty Care Team Description 09/10/2022 Office Visit Internal Medicine Margot Branham MD [address] [place] [address] (Wo rk) documented as of this encounter Visit Diagnoses Not on filedocumented in this encounter Care Teams Computer Drafter Relationship Specialty Start Date End Date Mehreen Johnston MD PhD PCP - General Family Practice 11/27/13 03/25/15 documented as of this encounter
--- OUTSIDE RECORDS SUMMARY | 2022-07-30 20:09 | XMS_ITS | Encounter Summary ---
:1945 Author Organization [place] Address [address] [place] [address]. [place] [address] Care Team Providers Name Role Phone Balbir Simpson MD Primary Care Provider Carlota Landeros MD Unavailable Luz Maria Kelly MD Unavailable Lisseth Vang MD Unavailable Reason for Visit Reason Onset Date Comments Pre Visit Planning - Done 04/02/2016 Encounter Details Date Type Department Care Team Description 04/02/2016 Telephone [facility] Urology and Carlota Landeros P re Visit Planning - Inst for Prostate and MD Done Urologic Cancers [address] 4th [place] [address] [phone] Social History Tobacco Use Types Packs/Day Years [...] Internal Medicine Margot Branham MD [address] [phone] (Wo rk) documented as of this encounter Visit Diagnoses Not on filedocumented in this encounter Care Teams Pan Washer Relationship Specialty Start Date End Date Balbir Simpson MD PCP - General Internal Medicine 03/26/15 04/12/16 Carlota Landeros MD MD Urology 04/10/[address] [place], [place] [address] Luz Maria Kelly MD MD Internal Medicine 03/27/16 02/22/17 Lisseth Vang MD PCP Family Practice 03/30/16 11/14/[address] [place] [address] documented as of this encounter
--- OUTSIDE RECORDS SUMMARY | 2022-07-30 20:09 | XMS_ITS | Encounter Summary ---
:1945 Author Organization [facility] Address [address] [place] [address]. [place] [address] Care Team Providers Name Role Phone Lisseth [...] Prostate and MD (Primary Dx) Urologic Cancers [address] [facility] 100 4th [place] [phone] Social History Tobacco Use Types Packs/Day Years [...] ml. 6. Left hemipelvis InterStim lead on box maker wood imaging. RU today is 0 cc on [...] AM CDT Interstim battery checked today with [employer] Provider Ambulatory Analyst which showed a battery longevity of [...] ??? azelastine (ASTELIN) 0.1 % nasal spray [place] 1-2 sprays into both nostrils daily as needed 90 mL1 ??? ipratropium (ATROVENT) 0.06 % nasal spray [place] 2 sprays into both nostrils 4 times [...] Medicine Margot Branham MD [address] [place] [phone] (Wo rk) documented as of this encounter Procedures Procedure Name Priority Date/Time Associated Diagnosis Comme nts HC MEASURE POST-VOID Routine 05/13/2016 9:42 AM CDT Mixed inco ntinence RESIDUAL URINE/BLADDER CAPACITY, US NON-IMAGING documented in this encounter Visit Diagnoses Diagnosis Mixed incontinence - Primary Mixed incontinence urge and stress (male )(female) documented in this encounter Care Teams Research Affiliate Relationship Specialty Start Date End Date Lisseth Vang MD PCP - General 04/13/16 11/14/[address] [place], [place] [phone] Carlota Landeros MD MD Urology 04/10/[address] [place], [place] [address] Luz Maria Kelly MD MD Internal Medicine 03/27/16 02/22/17 Lisseth Vang MD PCP Family Practice 03/30/16 11/14/[address] [place], [place] [phone] documented as of this encounter
--- OUTSIDE RECORDS SUMMARY | 2022-07-30 20:09 | XMS_ITS | Encounter Summary ---
:1945 Author Organization [place] Address [address] [place] [address]. [place] [address] Care Team Providers Name Role Phone Balbir Simpson MD Primary Care Provider [phone] Carlota Landeros MD Unavailable Balbir Simpson MD Unavailable [phone] Encounter Details Date Type Department Care Team Description 06/14/2015 Office Visit [facility] at [facility] Carrol Quintana [address] [place] [phone] Social History Tobacco Use Types Packs/Day Years Used Date Smoking Tobacco: Never Smokeless Tobacco: Never Alcohol Use Standard Drinks/Week Comments Yes 0 (1 standard drink = 0.6 oz pure alcoho l) wine few times/wk Sex Assigned at Date Recorded Female 12/20/2018 4:10 PM CDT documented as of this encounter Progress Notes Latanya Quintana, Sharmaine - 06/14/2015 4:14 PM CDT AUDIOLOGY REPORT BACKGROUND INFORMATION: Yamileth Sheikh was seen in the Audiology Clinic at [facility] [place] 06/14/15 to discuss concerns with hearing and functional communication difficulties. 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 The patient will medically evaluated and determinedto be cleared for binaural hearing aids by Dr. Mcgregor 07/03/15, and returns to be discuss options to duct layer helper in communication. Patient's major complaint is bilateral tinnitus. TEST RESULTS AND PROCEDURES: Based on their hearing loss and reported difficulty with tinnitus, the patient was presented with different options for amplification to duct layer helper in communication. We discussed the mechanisms of tinnitus and that many times when a hearing loss is present amplification can help reduce the perception ofit. The patient expressed interest in [employer] Pablo programs. The hearing aids mutually chosen were Widex Dream 330 Fusions and will be ordered in [facility]. The patient was given a copy of the [facility] consumer brochure on purchasing hearing instruments. Bilateral earmolds were taken without incident. SUMMARY AND RECOMMENDATIONS: Hearing aids ordered. Please call this clinic with questions regarding these results or recommendations. Rudy Covarrub[employer] Electronics Maintenance Technician [place] License #[id number] documented in this encounter Plan of Treatment Upcoming Encounters Date Type Specialty Care Team Description 09/10/2022 Office Visit Internal Medicine Margot Branham MD [address] [place] [address] (Wo rk) documented as of this encounter Visit Diagnoses Not on filedocumented in this encounter Care Teams Patent Paralegal Relationship Specialty Start Date End Date Balbir Simpson, PCP - General Internal Medicine 03/26/15 04/12/16 Carlota Landeros MD MD Urology 04/10/[address] [place] [address] Balbir Simpson, Referring Physician Internal Medicine 04/0303/29/16 documented as of this encounter
--- OUTSIDE RECORDS SUMMARY | 2022-07-30 20:09 | XMS_ITS | Encounter Summary ---
:1945 Author Organization [place] Address [address] [place] [address]. [place] [address] Care Team Providers Name Role Phone Balbir Simpson MD Primary Care Provider [phone] Carlota Acuña MD Unavailable Balbir Simpson MD Unavailable [phone] Reason for Visit Reason Comments Physical Pt states she is here for a physical and would like to discuss left knee pain, tinnitus, and nasal co ngestion. Encounter Details Date Type Department Care Team Description 01/10/2016 Office Visit [facility] Primary Care Balbir Simpson for colon cancer (Primary Dx); Clinic MD Juvencio Seasonal allergies; [address] [place] [address] Chronic rhinitis; 4th Floor [place], [place] Vaginal dryness; [place] [address] Atrophic vaginitis; [address] Recurrent cold sores; Vitamin D deficiency; [phone] Hyperlipidemia, unspecified hyperlipidemia; (Fax) External hemorr hoids [...] pharmacy regarding ANY request for medication refills. [facility] Prescription Fax = [phone] * Please allow 3 business days for [...] examination. [facility] done there. She [...] she initially gets up. She walks around [facility] and a mile or so in the [...] ??? Myocardial Infarction Maternal Grandfather 82 of [place] ??? Cardiovascular Paternal Grandmother age 65 of heart problems ??? Pneumonia Paternal Grandfather age 70 after flu ??? Cancer Sister uterine cancer ??? Parkinsonism Sister History Social History ??? Marital Status: Single Spouse Name: N/A Number of Children: N/A ??? 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 Smoking status: [...] 1 son - - still working at [employer] - latvian as a second language - lives in [...] MD General Internal Medicine [facility] [phone] documented in this encounter Nursing Notes Lo [...] Office Visit Internal Medicine LogeaMargot man MD [address] [place] [phone] (Wo rk) documented as of this encounter [...] Signature CRP Cardiac 3.2 mg/L [facility] Comment: Reference Values: Low Risk: [...] Organization Address City/State/ZIP Code Phon e Number [facility] [address] [place] [address] [facility] Vitamin D Deficiency (01/10/2016 8:45 AM CDT) athologist Signature Vitamin D 37 20 - 75 [facility] Deficiency ug/L [facility] Comment: Season, race, dietary intake, and treatm ent affect the concentration of 78-lzzmsve-Wxssunw D. Values may decrea se during winter [...] LAB - BLOOD ORDERABLES Performing Organization Address City/State/[facility] Code Phon e Number [facility] [address] [place], [place] [id number] [place] [address] documented in this encounter Visit Diagnoses Diagnosis [...] complication documented in this encounter Care Teams Grinder Set Up Operator Internal Relationship Specialty Start Date End Date Balbir Simpson, PCP - General Internal Medicine 03/26/15 04/12/16 Carlota Acuña MD MD Urology 04/10/[address] [place] [address] Balbir Simpson, Referring Physician Internal Medicine 04/0303/29/16 documented as of this encounter
--- OUTSIDE RECORDS SUMMARY | 2022-07-30 20:09 | XMS_ITS | Encounter Summary ---
:1945 Author Organization [place] Address [address] [place] [address]. [place] [address] Care Team Providers Name Role Phone Balbir Simpson MD Primary Care Provider [phone] Reason for Visit Auth/Cert - Closed Specialty Diagnoses / Procedures Referred By Contact Refer red To Contact Surgery Diagnoses Stress Incontinence Ur Periop Procedures CYSTOSCOPY, SLING TRANSVAGINAL [address] [place] [address] Phone: Fax: Referral ID Status Reason Start Date Expiration Date Visits Requ ested Visits Authorized [id number] Closed 1 1 Encounter Details Date Type Department Care Team Description 03/26/2015 Anesthesia Event [facility] Merrill Smith MD [address] [place] [address] PeriOp Services Eleni Benson APRN FIBER DESIGNER CERTIFIED ANESTHESIA CARE [address] [place] [address] [address] [place] [address] Anesthesia Record Procedure Summary Procedure Name Responsible Anesthesia Start Anesthesia Stop Anesthesiologist Time Time Midurethral Sling and Merrill mSith MD 03/26/15 0914 03/26/15 1000 Cystoscopy (Vagina) [...] 1243 by Left; Hand; Juanis Palafox RN [place], Chlorhexidine; None; MODESTA Acuña Tolerated poorly Incision/Surgical [...] early admission to pre-op area: Other: PAC Resident/FILTER WORKER Anesthesia Assessment: 65 y/o referred to discuss [...] Office Visit Internal Medicine LogMargot sadler MD [address] [place] [phone] (Wo rk) documented as of this encounter [...] Intra-op documented in this encounter Care Teams Client Insights Consultant Relationship Specialty Start Date End Date Balbir Simpson MD PCP - General Internal Medicine 03/26/15 04/12/16 documented as of this encounter
--- OUTSIDE RECORDS SUMMARY | 2022-07-30 20:09 | XMS_ITS | Encounter Summary ---
:1945 Author Organization [place] Address [address] [place] [address]. [place] [address] Care Team Providers Name Role Phone Balbir Simspon MD Primary Care Provider Carlota Landeros MD Unavailable Balbir Simpson MD Unavailable [phone] Encounter Details Date Type Department Care Team Description 05/08/2015 Orders Only UROLOGY CLINIC AND Carlota Landeros Vag inathea candidiasis [facility] ([facility] Dx[facility] PROSTATE AND UROLOGIC [address] [place], [place] [address] [address] [address] FLO[address], [address] [place] [address] [facility] [address] [place] [id number] Social History Tobacco Use Types Packs/Day Years [...] Visit Internal Medicine Margot Branham MD 909 [facility] [address] [place], [place] [address] (Wo rk) documented as of this encounter Visit Diagnoses Diagnosis Vaginal candidiasis - Primary Candidiasis of vulva and vagina documented in this encounter Care Teams Edge Worker Relationship Specialty Start Date End Date Balbir Simpson, PCP - General Internal Medicine 03/26/15 04/12/16 Carlota Landeros MD MD Urology 04/10/[address] [place] [address] Balbir Simpson, Referring Physician Internal Medicine 04/0303/29/16 documented as of this encounter
--- OUTSIDE RECORDS SUMMARY | 2022-07-30 20:09 | XMS_ITS | Encounter Summary ---
:1945 Author Organization [place] Address [address] [place] [address]. [place] [address] Care Team Providers Name Role Phone Lisseth Vang MD Primary Care Provider Carlota Landeros MD Unavailable Luz Maria Kelly MD Unavailable Lisseth Vang MD Unavailable Encounter Details Date Type Department Care Team Description 07/02/[address] [facility] for Anh Costa Elevate d glucose (Primary Dx); Cardiovascular Disease CLAUDIA Marsh COPY SUPERVISOR Ess ential hypertension with goal blood pressure less than 130/[address] [place] [address] Social History Tobacco Use Types Packs/Day [...] 09/10/2022 Office Visit Internal Medicine LogeaisMargot MD [address] [place] [address] (Wo rk) documented as of this encounter Results Microalbumin quantitative random urine (07/22/2016 12:52 PM CDT) [facility] Time Signature Creatinine 103 mg/dL [facility] Albumin Urine <5 mg/L [place] mg/L [facility] Albumin Urine Unable to 0 - 25 TAFT mg/g Cr calculate due mg/g Cr [facility] to low value HOSPITAL Specimen Anatomical Collection Method Collection Time Receive d Time (Source) Location / / Volume Laterality Urine specimen 07/22/2016 12:52 6 (specimen) PM CDT 12:54 PM CDT Anh Costa APRN, CNP LAB - URINE ORDERABLES Performing Organization Address City/State/ZIP Code Phon e Number [facility] [address] [place] [address] [facility] [address] [place] [address], [facility] [phone] Hemoglobin A1c (07/22/2016 12:50 PM CDT) P athologist Signature Hemoglobin A1C 5.4 4.3 - 6.0 [facility] Specimen Anatomical Collection Method Collection Time Receive d Time (Source) Location / / Volume Laterality Blood specimen 07/22/2016 12:50 6 (specimen) PM CDT 12:54 PM CDT Anh Costa APRN, CNP LAB - BLOOD ORDERABLES Performing Organization Address City/State/ZIP Code Phon e Number [address] [address] [facility] Comprehensive metabolic panel (07/22/2016 12:50 PM CDT) P athologist Signature Sodium 142 133 - 144 [facility] mmol/L [facility] Potassium 4.3 3.4 - 5.3 [facility] mmol/L [facility] Chloride 109 94 - 109 [facility] mmol/L [facility] Carbon Dioxide 26 20 - 32 [facility] mmol/L [facility] Anion Gap 7 3 - 14 [facility] mmol/L [facility] Glucose 98 70 - 99 [facility] mg/dL [facility] Urea Nitrogen 10 7 - 30 [facility] mg/dL [facility] Creatinine 0.83 0.52 - [facility] 1.04 mg/dL [facility] GFR Estimate 68 >60 [facility] mL/min/1.7 [place] m2 [facility] Comment: Non GFR Calc GFR Estimate If Black 83 >60 mL/min/1.7m2 U [facility] Comment: GFR Calc Calcium 8.7 8.5 - 10.1 mg/dL [facility] Bilirubin Total 0.7 0.2 - 1.3 mg/dL [facility] Albumin 3.6 3.4 - 5.0 g/dL [facility] Protein Total 6.8 6.8 - 8.8 g/dL [facility] Alkaline Phosphatase 92 40 - 150 U/L [facility] ALT 21 0 - 50 U/L [facility] AST 16 0 - 45 U/L [facility] Specimen Anatomical Collection Method Collection Time Receive d Time (Source) Location / / Volume Laterality Blood specimen 07/22/2016 12:50 6 (specimen) PM CDT 12:54 PM CDT Anh Costa APRN, CNP LAB - BLOOD ORDERABLES Performing Organization Address City/State/ZIP Code Phon e Number [address] [address] [facility] CRP cardiac risk (07/22/2016 12:50 PM CDT) P athologist Signature CRP Cardiac 4.9 mg/L [facility] Comment: Reference Values: Low Risk: ? <1.0 mg/L Average Risk: ? 1.0-3.0 mg/L High Risk: ?>3.0 mg/L Acute Inflammation: >8.0 mg/L Specimen Anatomical Collection Method Collection Time Receive d Time (Source) Location / / Volume Laterality Blood specimen 07/22/2016 12:50 6 (specimen) PM CDT 12:54 PM CDT Anh Costa APRN COPY SUPERVISOR LAB - BLOOD ORDERABLES Performing Organization Address City/State/ZIP Code Phon e Number [facility] [address] (ABNORMAL) Lipid panel reflex to direct LDL (07/22/2016 12:50 PM CDT) P athologist Signature Cholesterol 243 (H) <200 mg/dL [facility] Comment: Desirable: <200 mg/dl Triglycerides 193 (H) <150 mg/dL [facility] Comment: Borderline high: ??150-199 mg/dl High: ? 200-499 mg/dl Very high: ? >499 mg/dl HDL Cholesterol 64 >49 mg/dL [facility] LDL Cholesterol Calculated 141 (H) <100 mg/dL [facility] Comment: Above desirable: ??100-129 mg/dl Borderline High: ??130-159 mg/dL High: ? 160-189 mg/dL Very high: ? >189 mg/dl Non HDL Cholesterol 179 (H) <130 mg/dL [facility] Comment: Above Desirable: ??130-159 mg/dl Borderline high: ??160-189 mg/dl High: ? 190-219 mg/dl Very high: ? >219 mg/dl Specimen Anatomical Collection Method Collection Time Receive d Time (Source) Location / / Volume Laterality Blood specimen 07/22/2016 12:50 6 (specimen) PM CDT 12:54 PM CDT Anh Costa APRN COPY SUPERVISOR LAB - BLOOD ORDERABLES Performing Organization Address City/State/ZIP Code Phon e Number [address] [id number] [facility] documented in this encounter Visit Diagnoses Diagnosis Elevated glucose - Primary Other abnormal glucose Essential hypertension with goal blood p ressure less than 130/85 documented in this encounter Care Teams Tower Switch Operator Relationship Specialty Start Date End Date Lisseth Vang MD PCP - General 04/13/16 11/14/[address] [place] [address] Carlota Landeros MD MD Urology 04/10/[address] [place], [place] [address] Luz Maria Kelly MD MD Internal Medicine 03/27/16 02/22/17 Lisseth Vang MD PCP Family Practice 03/30/16 11/14/[address] [place] [address] documented as of this encounter
--- OUTSIDE RECORDS SUMMARY | 2022-07-30 20:09 | XMS_ITS | Encounter Summary ---
:1945 Author Organization [place] Address [address] [place] [address]. [place] [address] Care Team Providers Name Role Phone Balbir Simpson MD Primary Care Provider [phone] Carlota Acuña MD Unavailable Balbir Simpson MD Unavailable [phone] Reason for Visit Reason Comments Establish Care Pt states she is here to est [facility] care. Pt states she would like to discuss varicose veins and w ould like to have a wart frozen off. Encounter Details Date Type Department Care Team Description 06/05/2015 Office Visit [facility] Primary Balbir Simpson (Primary Dx); Care Center MD Juvencio Seborrheic keratoses; 3rd Floor, Clinic [address] [place] [address] [facility] 88 (Work) [place], [place] [phone] [address] (Fax) [phone] Social History Tobacco Use Types Packs/Day Years [...] pharmacy regarding ANY request for medication refills. [facility] Prescription Fax = [phone] * Please allow 3 business days for [...] hypertension. She has been followed through the [facility]. 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 Smoking [...] 1 son - - still working at [employer] - angolan as a second language - lives in [...] MD General Internal Medicine Primary Care Center [phone] documented in this encounter Nursing Lo Cooper [...] Office Visit Internal Medicine Margot Branham MD [address] [place] [address] (Wo rk) documented as of this encounter Procedures Procedure Name Priority Date/Time Associated Diagnosis Comme nts HC DESTRUCT BENIGN Routine 06/05/2015 8:47 AM CDT Warts LESION, UP TO 14 Seborrheic keratoses documented in this encounter Results CRP inflammation (01/10/2016 8:46 AM CDT) Analysis Performed At Patho logist Time Signature CRP Inflammation 3.2 0.0 - 8.0 [facility] mg/L [facility] [place] Specimen Anatomical Collection Method Collection Time Receive d Time (Source) Location / / Volume Laterality Blood specimen 01/10/2016 8:46 AM 016 8:47 (specimen) CDT AM CDT Balbir Simpson MD LAB - BLOOD ORDERABLES Performing Organization Address City/[facility]/ZIP Code Phon e Number [address] [address] [facility] (ABNORMAL) Lipid Profile (01/10/2016 8:46 AM CDT) P athologist Signature Cholesterol 223 (H) <200 mg/dL [facility] Comment: Desirable: <200 mg/dl Triglycerides 137 <150 mg/dL [facility] HDL Cholesterol 78 >49 mg/dL [facility] LDL Cholesterol Calculated 118 (H) <100 mg/dL UN [facility] Comment: Above desirable: ??100-129 mg/dl Borderline High: ??130-159 mg/dL High: ? 160-189 mg/dL Very high: ? >189 mg/dl Non HDL Cholesterol 146 (H) <130 mg/dL [facility] Comment: Above Desirable: ??130-159 mg/dl Borderline high: ??160-189 mg/dl High: ? 190-219 mg/dl Very high: ? >219 mg/dl Specimen Anatomical Collection Method Collection Time Receive d Time (Source) Location / / Volume Laterality Blood specimen 01/10/2016 8:46 AM 016 8:47 (specimen) CDT AM CDT Balbir Simpson MD LAB - BLOOD ORDERABLES Performing Organization Address City/State/ZIP Code Phon e Number [address] [address] [facility] (ABNORMAL) Basic metabolic panel (01/10/2016 8:46 AM CDT) Analysis Performed At Patho logist Time Signature Sodium 141 133 - 144 [facility] mmol/L [facility] Potassium 4.3 3.4 - 5.3 [facility] mmol/L [facility] Chloride 107 94 - 109 [facility] mmol/L [facility] Carbon Dioxide 24 20 - 32 [facility] mmol/L [facility] Anion Gap 9 3 - 14 [facility] mmol/L [facility] Glucose 107 (H) 70 - 99 [facility] mg/dL [facility] Urea Nitrogen 15 7 - 30 [facility] mg/dL [facility] Creatinine 0.73 0.52 - [facility] 1.04 mg/dL [facility] GFR Estimate 79 >60 [facility] mL/min/1.7 [place] m2 [facility] Comment: Non GFR Calc GFR Estimate If >90 >60 mL/min/1.7m2 [facility] Black GFR Calc [facility] Calcium 8.9 8.5 - 10.1 mg/dL [facility] Specimen Anatomical Collection Method Collection Time Receive d Time (Source) Location / / Volume Laterality Blood specimen 01/10/2016 8:46 AM 016 8:47 (specimen) CDT AM CDT Balbir Simpson MD LAB - BLOOD ORDERABLES Performing Organization Address City/State/ZIP Code Phon e Number [address] [address] [facility] documented in this encounter Visit Diagnoses Diagnosis Warts - Primary Viral warts, unspecified Seborrheic keratoses Hyperlipidemia Other and unspecified hyperlipidemia documented in this encounter Care Teams Vp Talent Management Relationship Specialty Start Date End Date Balbir Simpson, PCP - General Internal Medicine 03/26/15 04/12/16 Carlota Acuña MD MD Urology 04/10/[address] [place] [address] Balbir Simpson, Referring Physician Internal Medicine 04/0303/29/16 documented as of this encounter
--- OUTSIDE RECORDS SUMMARY | 2022-07-30 20:09 | XMS_ITS | Encounter Summary ---
:1945 Author Organization [place] Address [address] [place] [address]. [place] [address] Care Team Providers Name Role Phone Balbir Simpson MD Primary Care Provider [phone] Carlota Landeros MD Unavailable Balbir Simpson MD Unavailable [phone] Reason for Visit Reason Comments RECHECK DE LEON clearance Encounter Details Date Type Department Care Team Description 09/05/2015 Office Visit Ear, Nose and Throat Vanessa Mcgregor MD Tinnitus, bilateral Clinic [address] [facility] 8th Floor, Clinic 8A [facility] [address] [place], [place] [address] [place] [address] [facility] 88 (Work) [place] [address] Social History Tobacco Use Types [...] clinic for any questions,concerns,or worsening symptoms. Clinic #[phone] Option 3 for the triage nurse. RPILLAR DRIVER documented in this encounter Progress Notes Vanessa [...] and I recommended she look at the [facility] website. She had her questions answered. Please note that the entire 10 minutes of this visit were spent in consultation. RPILLAR DRIVER documented in this encounter Nursing Notes Yesica Orlando CMA - 09/05/2015 11:48 AM CST Chief Complaint Patient presents with ??? RECHECK DE LEON clearance Yesica Orlando CMA RPILLAR DRIVER documented in this encounter Plan of Treatment Upcoming Encounters Date Type Specialty Care Team Description 09/10/2022 Office Visit Internal Medicine Margot Branham MD [address] [address] (Wo rk) documented as of this encounter Visit Diagnoses Diagnosis Tinnitus, bilateral - Primary Unspecified tinnitus documented in this encounter Care Teams Skin Lap Bonder Relationship Specialty Start Date End Date Balbir Simpson, JAMAR - General Internal Medicine 03/26/15 04/12/16 Carlota Landeros MD MD Urology 04/10/[address] [place] [address] Balbir Simpson, Referring Physician Internal Medicine 04/0303/29/16 documented as of this encounter
--- OUTSIDE RECORDS SUMMARY | 2022-07-30 20:09 | XMS_ITS | Encounter Summary ---
:1945 Author Organization [place] Address [address] [place] [address]. [place] [address] Care Team Providers Name Role Phone Balbir Simpson MD Primary Care Provider [phone] Carlota Landeros MD Unavailable Balbir Simpson MD Unavailable [phone] Reason for Visit Reason Comments Surgical Followup Post op Encounter Details Date Type Department Care Team Description 05/08/2015 Office Visit UROLOGY CLINIC AND Carlota Landeros Mix ed incontinence (Primary Dx); [facility] Atrophic vaginitis PROSTATE AND UROLOGIC [address] [place], [place] [address] [address] [address], [address] [place] [address] (Work) [place] [address] [place] [address] Social History Tobacco Use Types [...] Pdet 13 cm H2O; once moved to [facility] patient voided with Valsalva voiding with [...] ml. 6. Left hemipelvis InterStim lead on exerciser imaging. RU today is 0 cc on [...] Internal Medicine Margot Branham MD [address] [address] (Wo rk) documented as of this encounter Visit Diagnoses Diagnosis Mixed incontinence - Primary Mixed incontinence urge and stress (male )(female) Atrophic vaginitis Postmenopausal atrophic vaginitis documented in this encounter Care Teams Transportation Associate Relationship Specialty Start Date End Date Balbir Simpson, PCP - General Internal Medicine 03/26/15 04/12/16 Carlota Landeros MD MD Urology 04/10/[address] [place] [address] Balbir Simpson, Referring Physician Internal Medicine 04/0303/29/16 documented as of this encounter
--- OUTSIDE RECORDS SUMMARY | 2022-07-30 20:09 | XMS_ITS | Encounter Summary ---
:1945 Author Organization [place] Address [address] [place] [address]. [place] [address] Care Team Providers Name Role Phone Lisseth Vang MD Primary Care Provider Carlota Landeros MD Unavailable Luz Maria Kelly MD Unavailable Lisseth Vang MD Unavailable Encounter Details Date Type Department Care Team Description 07/06/2016 Orders Only [facility] Anh Costa hypertension Cardiovascular Disease Salma, CLAUDIA INBOUND CUSTOMER SERVICE AGENT wit h goal blood Prevention pressure less than [address] [facility] [address] 130/80 (Primary Dx) [address] [place] [address] Social History Tobacco Use Types [...] Visit Internal Medicine LogMargot sadler MD [address] [facility] [address] [place] [address] (Wo rk) documented as of this encounter Visit Diagnoses Diagnosis Essential hypertension with goal blood p ressure less than 130/80 - Primary documented in this encounter Care Teams Bench Worker Binding Relationship Specialty Start Date End Date Lisseth Vang MD PCP - General 04/13/16 11/14/[address] [place] [address] Carlota Landeros MD MD Urology 04/10/[address] [place], [place] [address] Luz Maria Kelly MD MD Internal Medicine 03/27/16 02/22/17 Lisseth Vang MD PCP Family Practice 03/30/16 11/14/[address] [place] [address] documented as of this encounter
--- OUTSIDE RECORDS SUMMARY | 2022-07-30 20:09 | XMS_ITS | Encounter Summary ---
:1945 Author Organization [place] Address [address] [facility] [place] [address] Care Team Providers Name Role Phone Balbir Simpson MD Primary Care Provider [phone] Reason for Visit Auth/Cert - Closed Specialty Diagnoses / Procedures Referred By Contact Refer red To Contact Surgery Diagnoses Stress Incontinence Ur Periop Procedures CYSTOSCOPY, SLING TRANSVAGINAL [address] [place] [address] Phone: Fax: Referral ID Status Reason Start Date Expiration Date Visits Requ ested Visits Authorized [id number] Closed 1 1 Encounter Details Date Type Department Care Team Description 03/26/2015 Surgery [facility] Carlota Landeros, Midurethral Sling and PeriOp Services Cystoscopy 2450 [facility] [address] [place] [address] 100 [place] [address] (Wo rk) Surgery Details Date/Time Status Location [...] Castillo RN - 03/26/2015 10:23 AM CDT [facility] Adult Discharge Orders & Instructions [...] pharmacist before using any other medicine, including zbwv-ttw-jhexhnf medicines,vitamins, and herbal products. Tell your doctor [...] length USE DIRECTED . fluticasone (FLONASE) 50 [place] 2 sprays into 1 Package 6 04/13/2015 MCG/ACT nasal both nostrils daily sprayIndications: Nasal obstruction azelastine (ASTELIN) 137 [place] 1-2 sprays 90 mL 1 01/0701/10/2016 MCG/SPRAY [...] times foamIndications: External daily hemorrhoids ipratropium (ATROVENT) [place] 2 sprays into 1 Box 6 03/0401/10/2016 [...] PM CDT SP[facility] Progress Note [facility] Pre-Op Attempted visit per pt file request, but she was discharged just before I got there. Danny Trujillo Production Bow Maker Leather Roller Pager [phone] documented in this encounter Nursing Notes Arianne [...] were inserted into the urethra and a 16-Citizen Of [place] Marcus catheter was placed. An Allis clamp [...] right hand side. We then placed a 20-Citizen Of [place] cystoscope through the urethra and into the [...] Villatoro MD - 03/26/2015 10:00 AM CDT [facility] Brief Operative Note Pre-operative diagnosis: Stress [...] Visit Internal Medicine LogeaMargot man MD [address] [place] [phone] (Wo rk) documented as of this encounter [...] II documented in this encounter Care Teams Bus Matron Relationship Specialty Start Date End Date Balibr Simpson MD PCP - General Internal Medicine 03/26/15 04/12/16 documented as of this encounter
--- OUTSIDE RECORDS SUMMARY | 2022-07-30 20:09 | XMS_ITS | Encounter Summary ---
:1945 Author Organization [place] Address [address] [place] [address]. [place] [address] Care Team Providers Name Role Phone Balbir Simpson MD Primary Care Provider [phone] Carlota Landeros MD Unavailable Reason for Visit Reason Comments Other Encounter Details Date Type Department Care Team Description 04/15/2015 Documentation Only [facility] Abel Hui [address] [facility] 100 [place] [address] Social History Tobacco Use Types [...] Visit Internal Medicine Margot Branham MD [address] [phone] (Wo rk) documented as of this encounter Visit Diagnoses Not on filedocumented in this encounter Care Teams Tumbler Operator Relationship Specialty Start Date End Date Balbir Simpson MD PCP - General Internal Medicine 03/26/15 04/12/16 Carlota Landeros MD MD Urology 04/10/[address] [place] [address] [place], [place] [address] documented as of this encounter
--- OUTSIDE RECORDS SUMMARY | 2022-07-30 20:09 | XMS_ITS | Encounter Summary ---
:1945 Author Organization [place] Address [address] [place] [address]. [place] [address] Care Team Providers Name Role Phone Balbir Simpson MD Primary Care Provider [phone] Reason for Visit Reason Onset Date Comments Pre Visit Planning - Done 04/01/2015 Encounter Details Date Type Department Care Team Description 04/01/2015 Telephone UROLOGY CLINIC AND Carlota Landeros, Pre Visit Planning - [facility] MD Done [facility] [address] [facility] [address]LO[address], [address] [place] [address] [place] [address] Social History Tobacco Use Types [...] Internal Medicine Margot Branham MD [address] [address] (Wo rk) documented as of this encounter Visit Diagnoses Not on filedocumented in this encounter Care Teams Glass Bulb Machine Adjuster Relationship Specialty Start Date End Date Balbir Simpson MD PCP - General Internal Medicine 03/26/15 04/12/16 documented as of this encounter
--- OUTSIDE RECORDS SUMMARY | 2022-07-30 20:09 | XMS_ITS | Encounter Summary ---
:1945 Author Organization [place] Address [address] [place] [address]. [place] [address] Care Team Providers Name Role Phone Balbir Simpson MD Primary Care Provider [phone] Carlota Landeros MD Unavailable Balbir Simpson MD Unavailable [phone] Encounter Details Date Type Department Care Team Description 07/03/2015 Telephone [facility] Carlota Landeros MD [place] [id number] [place], [place] [address]E [place] [address] [address] [address] [place] [address] [place] [phone] Social History Tobacco Use Types Packs/Day Years [...] PM CDT Left message Michelle Montana RN Legal [facility] Urology Telephone Encounter - Giselle Dorman RN [...] Patient has been seen recently at the [facility]. Patient instructed that Dr. Landeros is out of the office until Wednesday, but was informed that the message would be sent to her. Will update patient after recommendations made by MD. Giselle Dorman General Surgery - Urology RN documented in this encounter Plan of Treatment Upcoming Encounters Date Type Specialty Care Team Description 09/10/2022 Office Visit Internal Medicine Margot Branham MD [address] [address] (Wo rk) documented as of this encounter Visit Diagnoses Not on filedocumented in this encounter Care Teams Dust Brush Assembler Relationship Specialty Start Date End Date Balbir Simpson, PCP - General Internal Medicine 03/26/15 04/12/16 Carlota Landeros MD MD Urology 04/10/[address] [place] [place] [address] Balbir Simpson, Referring Physician Internal Medicine 04/0303/29/16 documented as of this encounter
--- OUTSIDE RECORDS SUMMARY | 2022-07-30 20:09 | XMS_ITS | Encounter Summary ---
:1945 Author Organization [place] Address [address] [place] [address]. [place] [address] Care Team Providers Name Role Phone Lisseth Vang MD Primary Care Provider Carlota Landeros MD Unavailable Luz Maria Kelly MD Unavailable Lisseth Vang MD Unavailable Reason for Visit Reason Onset Date Comments Results 07/02/2016 Encounter Details Date Type Department Care Team Description 07/02/2016 Telephone [facility] for Anh Costa APR N Results Cardiovascular Disease [place] [phone] Social History Tobacco Use Types Packs/Day Years Used Date Smoking Tobacco: Never Smokeless Tobacco: Never Alcohol Use Standard Drinks/Week Comments Yes 0 (1 standard drink = 0.6 oz pure alcoho l) wine few times/wk Sex Assigned at Date Recorded Female 12/20/2018 4:10 PM CDT documented as of this encounter Miscellaneous Notes Telephone Encounter - Anh Costa APRN EXPORT FREIGHT SPECIALIST - 07/02/2016 8:43 AM CDT Patient called concerned about day of elevated BP's 140's/70's and abnormal labs she had at [facility] with GFR at 55% with normal [...] Internal Medicine Margot Branham MD [address] [phone] (Wo rk) documented as of this encounter Visit Diagnoses Not on filedocumented in this encounter Care Teams Rehabilitation Consultant Relationship Specialty Start Date End Date Lisseth Vagn MD PCP - General 04/13/16 11/14/[address] [place], [place] [address] Carlota Landeros MD MD Urology 04/10/[address] [place] [place], [place] [address] Luz Maria Kelly MD MD Internal Medicine 03/27/16 02/22/17 Lisseth Vang MD PCP Family Practice 03/30/16 11/14/[address] [place] [place], [place] [address] documented as of this encounter
--- OUTSIDE RECORDS SUMMARY | 2022-07-30 20:09 | XMS_ITS | Encounter Summary ---
:1945 Author Organization [place] Address [address] [facility] [place] [address] Care Team Providers Name Role Phone Balbir Simpson MD Primary Care Provider [phone] Reason for Visit Auth/Cert - Closed Specialty Diagnoses / Procedures Referred By Contact Refer red To Contact Surgery Diagnoses Stress Incontinence Ur Periop Procedures CYSTOSCOPY, SLING TRANSVAGINAL [address] [place] [id number] Phone: Fax: Referral ID Status Reason Start Date Expiration Date Visits Requ ested Visits Authorized [id number] Closed 1 1 Encounter Details Date Type Department Care Team Description 03/26/2015 Hospital Encounter UR PREOP/PHASE II Nakib, Nissrine Mixed incontinence 2450 [place] ([place] D[place]) [place] [id number] [phone] [place] [place] [address] Social History Tobacco Use Types Packs/Day Years [...] Castillo RN - 03/26/2015 10:23 AM CDT [facility] Adult Discharge Orders & Instructions [...] pharmacist before using any other medicine, including ncmg-aci-sypmdka medicines,vitamins, and herbal products. Tell your doctor [...] length USE DIRECTED . fluticasone (FLONASE) 50 [place] 2 sprays into 1 Package 6 04/13/2015 MCG/ACT nasal both nostrils daily sprayIndications: Nasal obstruction azelastine (ASTELIN) 137 [place] 1-2 sprays 90 mL 1 01/0701/10/2016 MCG/SPRAY [...] times foamIndications: External daily hemorrhoids ipratropium (ATROVENT) [place] 2 sprays into 1 Box 6 03/0401/10/2016 [...] PM CDT SPIRITUAL HEALTH SERVICES Progress Note [facility] ([facility]) Pre-Op Attempted visit per pt file request, but she was discharged just before I got there. Danny Trujillo Roll Out Manager Elevator Erector Pager [phone] documented in this encounter Nursing Notes Arianne [...] were inserted into the urethra and a 16-Nigerian Marcus catheter was placed. An Allis clamp [...] right hand side. We then placed a 20-Nigerian cystoscope through the urethra and into the [...] Villatoro MD - 03/26/2015 10:00 AM CDT [facility] Brief Operative Note Pre-operative diagnosis: Stress [...] Visit Internal Medicine LogeaMargot man MD [address] [address] (Wo rk) documented as of this encounter [...] II documented in this encounter Care Teams Engineering Librarian Relationship Specialty Start Date End Date Balbir Simpson MD PCP - General Internal Medicine 03/26/15 04/12/16 documented as of this encounter
--- OUTSIDE RECORDS SUMMARY | 2022-07-30 20:09 | XMS_ITS | Encounter Summary ---
:1945 Author Organization [place] [facility] Address [address] [place] [address]. [place] [address] Care Team Providers Name Role Phone Balbir Simpson MD Primary Care Provider [phone] Carlota Landeros MD Unavailable Balbir Simpson MD Unavailable [phone] Encounter Details Date Type Department Care Team Description 01/10/2016 [facility] Only [facility] Lab Hyperlipidemia [address] [place] [phone] Social History Tobacco Use Types [...] Office Visit Internal Medicine LogMargot sadler MD [address] [place] [phone] (Wo rk) documented as of this encounter [...] 3.2 0.0 - 8.0 [facility] mg/L [facility] Specimen Anatomical Collection Method Collection Time Receive d Time (Source) Location / / Volume Laterality Blood specimen 01/10/2016 8:46 AM 016 8:47 (specimen) CDT AM CDT Balbir Simpson MD LAB - BLOOD ORDERABLES Performing Organization Address City/[facility] [place] [address] [facility] (ABNORMAL) Lipid Profile (01/10/2016 8:46 AM CDT) P athologist Signature Cholesterol 223 (H) <200 mg/dL [facility] Comment: Desirable: <200 mg/dl Triglycerides 137 <150 mg/dL [facility] HDL Cholesterol 78 >49 mg/dL [facility] LDL Cholesterol Calculated 118 (H) <100 mg/dL [facility] Comment: Above desirable: ??100-129 mg/dl Borderline High: ??130-159 mg/dL High: ? 160-189 mg/dL Very high: ? >189 mg/dl Non HDL Cholesterol 146 (H) <130 mg/dL [facility] Comment: Above Desirable: ??130-159 mg/dl Borderline high: ??160-189 mg/dl High: ? 190-219 mg/dl Very high: ? >219 mg/dl Specimen Anatomical Collection Method Collection Time Receive d Time (Source) Location / / Volume Laterality Blood specimen 01/10/2016 8:46 AM 016 8:47 (specimen) CDT AM CDT Balbir Simpson MD LAB - BLOOD ORDERABLES Performing Organization Address City/[facility] [place] [address] [facility] (ABNORMAL) Basic metabolic panel (01/10/2016 8:46 AM CDT) Analysis Performed At Patho logist Time Signature Sodium 141 133 - 144 [facility] mmol/L [facility] Potassium 4.3 3.4 - 5.3 [facility] mmol/L [facility] Chloride 107 94 - 109 [facility] mmol/L [facility] Carbon Dioxide 24 20 - 32 [facility] mmol/L [facility] Anion Gap 9 3 - 14 [facility] mmol/L [facility] Glucose 107 (H) 70 - 99 [facility] mg/dL [facility] Urea Nitrogen 15 7 - 30 [facility] mg/dL [facility] Creatinine 0.73 0.52 - [facility] 1.04 mg/dL [facility] GFR Estimate 79 >60 [facility] mL/min/1.7 [place] m2 [facility] Comment: Non GFR Calc GFR Estimate If >90 >60 mL/min/1.7m2 [facility] Black GFR Calc [facility] Calcium 8.9 8.5 - 10.1 mg/dL [facility] Specimen Anatomical Collection Method Collection Time Receive d Time (Source) Location / / Volume Laterality Blood specimen 01/10/2016 8:46 AM 016 8:47 (specimen) CDT AM CDT Balbir Simpson MD LAB - BLOOD ORDERABLES Performing Organization Address City/State/ZIP Code Phon e Number [address] [address] [facility] documented in this encounter Visit Diagnoses Diagnosis Hyperlipidemia Other and unspecified hyperlipidemia documented in this encounter Care Teams Product Marketing Consultant Relationship Specialty Start Date End Date Balbir Simpson, PCP - General Internal Medicine 03/26/15 04/12/16 Carlota Landeros MD MD Urology 04/10/[address] [place] [address] Balbir Simpson, Referring Physician Internal Medicine 04/0303/29/16 documented as of this encounter
--- OUTSIDE RECORDS SUMMARY | 2022-07-30 20:09 | XMS_ITS | Encounter Summary ---
:1945 Author Organization [facility] Address [address] [place] [address]. [address] Care Team Providers Name Role Phone Lisseth Vang MD Primary Care Provider Carlota Landeros MD Unavailable Luz Maria Kelly MD Unavailable Lisseth Vang MD Unavailable Reason for Visit Reason Comments Other Encounter Details Date Type Department Care Team Description 04/21/2016 Documentation Only [facility] Cho[facility] Aleena Mcknight [address] [facility] [address] [place] [address] Social History Tobacco Use Types [...] Team Description 09/10/2022 Office Visit Internal Medicine aMrgot Branham MD [address] [address] (Wo rk) documented as of this encounter Visit Diagnoses Diagnosis ACP (advance care planning) - Primary Other specified counseling documented in this encounter Care Teams Local Az Truck Driver Relationship Specialty Start Date End Date Lisseth Vang MD PCP - General 04/13/16 11/14/19 [address] [facility] 300 [place] [address] Carlota Landeros MD MD Urology 04/10/[address] [place] [address] Luz Maria Kelly MD MD Internal Medicine 03/27/16 02/22/17 Lisseth Vang MD PCP Family Practice 03/30/16 11/14/[address] [place] [address] documented as of this encounter
--- OUTSIDE RECORDS SUMMARY | 2022-07-30 20:09 | XMS_ITS | Encounter Summary ---
:1945 Author Organization [place] Address [address] [place] [address]. [place] [address] Care Team Providers Name Role Phone Balbir Simpson MD Primary Care Provider [phone] Carlota Landeros MD Unavailable Balbir Simpson MD Unavailable [phone] Reason for Visit Reason Comments Mantoux Results Reading Patient here for mantoux [place] Encounter Details Date Type Department Care Team Description 01/13/[address] [facility] Primary Care Nurse, [facility] Manto ux Results Health/Nurse Clinic [place] (Patient here Visit [address] [place] [address] for ... [address] [place] [address] Social History Tobacco Use Types [...] Visit Internal Medicine LogeaMargot man MD [address] [address] (Wo rk) documented as of this encounter Visit Diagnoses Diagnosis Screening examination for pulmonary tube rculosis - Primary documented in this encounter Care Teams Specimen Collector Relationship Specialty Start Date End Date Balbir Simpson, PCP - General Internal Medicine 03/26/15 04/12/16 Carlota Landeros MD MD Urology 04/10/[address] [place], [place] [address] Balbir Simpson, Referring Physician Internal Medicine 04/0303/29/16 documented as of this encounter
--- OUTSIDE RECORDS SUMMARY | 2022-07-30 20:09 | XMS_ITS | Encounter Summary ---
:1945 Author Organization [place] Address [address] [place] [address] Care Team Providers Name Role Phone Lisseth Vang MD Primary Care Provider Carlota Landeros MD Unavailable Luz Maria Kelly MD Unavailable Lisseth Vang MD Unavailable Reason for Visit Reason Comments RECHECK Encounter Details Date Type Department Care Team Description 07/21/2016 Office Visit [facility] [place], Screening for diabetes [facility] MD Lisseth mellitus (Primary Dx) [place] [facility] PROFESSIONAL [address], [place] 3RD FLR,[address] [address] [address] [facility] S [phone] [facility] 88 (Work) [place], [place] [address] [phone] Social History Tobacco Use Types Packs/Day Years [...] today for follow-up on hysteroscopy - at [place]. HPI: Had hysteroscopy and vomited after the [...] Ok Supplements: Vitamin D and EFA Seeing Glass Lathe Operator HCM: Colonosocopy (will check) Work: Retired March 2015. Has a home in [facility]. PAST SURGICAL HISTORY: 1) Phase II [...] ??? azelastine (ASTELIN) 0.1 % nasal spray [place] 1-2 sprays into both nostrils daily as needed 90 mL1 ??? ipratropium (ATROVENT) 0.06 % nasal spray [place] 2 sprays into both nostrils 4 times [...] Internal Medicine Margot Branham MD [address] [address] (Wo rk) documented as of this encounter Visit Diagnoses Diagnosis Screening for diabetes mellitus - Primar y documented in this encounter Care Teams Certified Peer Specialist Relationship Specialty Start Date End Date Lisseth Vang MD PCP - General 04/13/16 11/14/[address] [place], [place] [address] Carlota Landeros MD MD Urology 04/10/[address] [place], [place] [address] Luz Maria Kelly MD MD Internal Medicine 03/27/16 02/22/17 Lisseth Vang MD PCP Family Practice 03/30/16 11/14/[address] [facility] 300 [place] [address] documented as of this encounter
--- OUTSIDE RECORDS SUMMARY | 2022-07-30 20:09 | XMS_ITS | Encounter Summary ---
:1945 Author Organization [place] Address [address] [place] [address]. [place] [address] Care Team Providers Name Role Phone Lisseth [...] MD Need for hepatitis C screening test; [address] [place] [address] Screen for colon cancer; [address] Seasonal allergies; [place], [place] Chronic r hinitis; [phone] Vaginal dryness; [phone] (Wo rk) Recurrent cold sores; Vitamin D [...] pharmacy regarding ANY request for medication refills. [facility] Prescription Fax = [phone] * Please allow 3 business days for [...] 09/10/2022 Office Visit Internal Medicine LogeaisMargot MD [address] [place] [phone] (Wo rk) documented as of this encounter [...] Component Value Ref Test Analysis Performed At [email or web address] gist Range Method Time Signature Hepatitis C Nonreactive NR [facility] Antibody Assay performance character istics have not been established for newborns, [facility] infants, and children [facility] Specimen Anatomical Collection Method Collection Time Receive d Time (Source) Location / / Volume Laterality Blood specimen 04/13/2016 1:13 PM 016 1:16 (specimen) CDT PM CDT Luz Maria Kelly MD LAB - BLOOD ORDERABLES Performing Organization Address City/State/ZIP Code Phon e Number [facility] [address] [place], [place] [id number] [place] [address] Wet prep (04/13/2016 12:30 PM CDT) Component Value Ref Test Analysis Performed At [employer] Range Method Time Signature Specimen Vag[place] [facility] Description [facility] Wet Prep No Trichomonas seen [facility] clue cells seen [place] No yeast seen [facility] No PMNs seen [facility] Micro Report FINAL [facility] Status 04/13/2016 [facility] Specimen Anatomical Collection Method Collection Time Receive d Time (Source) Location / / Volume Laterality 04/13/2016 12:30 04/13/2016 PM CDT 12:48 PM CDT Luz Maria Kelly MD LAB - MICRO GENERAL ORDERABL ES Performing Organization Address City/State/ZIP Code Phon e Number [facility] 909 [place] [address] [facility] documented in this encounter Visit [...] organs documented in this encounter Care Teams Table Cut Off Saw Operator Relationship Specialty Start Date End Date Lisseth Vang MD PCP - General 04/13/16 11/14/[address] [place] [address] Carlota Landeros MD MD Urology 04/10/[address] [place] [address] Luz Maria Kelly MD MD Internal Medicine 03/27/16 02/22/17 Lisseth Vang MD PCP Family Practice 03/30/16 11/14/[address] [place], [place] [address] documented as of this encounter
--- OUTSIDE RECORDS SUMMARY | 2022-07-30 20:09 | XMS_ITS | Encounter Summary ---
:1945 Author Organization [place] Address [address] [place] [address]. [place] [address] Care Team Providers Name Role Phone Lisseth Vang MD Primary Care Provider Cralota Landeros MD Unavailable Luz Maria Kelly MD Unavailable Lisseth Vang MD Unavailable Reason for Visit Reason Onset Date Comments Call Back 07/01/2016 Schedule an [facility] ent Encounter Details Date Type Department Care Team Description 07/01/2016 Telephone [facility] None Eugenio l Back (Schedule an [place] appointment) [address] [place], [place] [phone] Social History Tobacco Use Types Packs/Day [...] verbalized understanding. Renee Lindsey RN, BSN Nephrology Roofer Assistant [facility] Telephone Encounter - Jena Pruitt - 07/01/2016 4:57 PM CDT [facility] Call Center Phone Message Name of Caller: [...] back pain and [facility] nurse [facility] told her the area she is having [...] Message routed to: Adult Clinics: Nephrology p [address] documented in this encounter Plan of Treatment Upcoming Encounters Date Type Specialty Care Team Description 09/10/2022 Office Visit Internal Medicine Margot Branham MD [address] [address] (Wo rk) documented as of this encounter Visit Diagnoses Not on filedocumented in this encounter Care Teams Broadcast Technician Relationship Specialty Start Date End Date Lisseth Vang MD PCP - General 04/13/16 11/14/[address] [facility] 300 [place] [address] Carlota Landeros MD MD Urology 04/10/[address] [place] [address] Luz Maria Kelly MD MD Internal Medicine 03/27/16 02/22/17 Lisseth Vang MD PCP Family Practice 03/30/16 11/14/[address] [place] [address] documented as of this encounter
--- OUTSIDE RECORDS SUMMARY | 2022-07-30 20:09 | XMS_ITS | Encounter Summary ---
:1945 Author Organization [place] Address [address] [place] [address]. [place] [address] Care Team Providers Name Role Phone Balbir Simpson MD Primary Care Provider [phone] Carlota Landeros MD Unavailable Reason for Visit Reason Comments Surgical Followup post operative check up S/P mid urethral sling (MiniArc Precise), cystoscopy Encounter Details Date Type Department Care Team Description 04/10/2015 Office Visit UROLOGY CLINIC AND Carlota Landeros Mix ed incontinence [facility] ([facility] Dx) PROSTATE AND UROLOGIC [address] [place], [place] [address]ILD[place] [address] [address]TH [address]LO[address], [address] [place] [address] (Work) [place] [address] [place] [address] Social History Tobacco Use Types [...] Pdet 13 cm H2O; once moved to [facility] patient voided with Valsalva voiding with maximum [...] ml. 6. Left hemipelvis InterStim lead on hog slaughterer imaging. She was still having problems with [...] ??? fluticasone (FLONASE) 50 MCG/ACT nasal spray Bailey 2 sprays into both nostrils daily 1 Package 6 ??? ipratropium (ATROVENT) 0.06 % nasal spray Bailey 2 sprays into both nostrils 4 times [...] ??? azelastine (ASTELIN) 137 MCG/SPRAY nasal spray Bailey 1-2 sprays into both nostrils 2 times daily(Patient taking differently: Bailey 1-2 sprays into both nostrils daily as [...] Visit Internal Medicine Margot Branham MD [address] [address] (Wo rk) documented as of this encounter Visit Diagnoses Diagnosis Mixed incontinence - Primary Mixed incontinence urge and stress (male )(female) documented in this encounter Care Teams Category Planner Relationship Specialty Start Date End Date Balbir Simpson MD PCP - General Internal Medicine 03/26/15 04/12/16 Carlota Landeros MD MD Urology 04/10/[address] [place] [address] documented as of this encounter
--- OUTSIDE RECORDS SUMMARY | 2022-07-30 20:09 | XMS_ITS | Encounter Summary ---
:1945 Author Organization [place] Address [address] [place] [address]. [place] [address] Care Team Providers Name Role Phone Lisseth Vang MD Primary Care Provider Carlota Landeros MD Unavailable Luz Maria Kelly MD Unavailable Lisseth Vang MD Unavailable Reason for Visit Reason Comments Hypertension Patient here for blood press ure check. Encounter Details Date Type Department Care Team Description 07/01/2016 [facility] Primary Care Nurse, Pcc Hyper tension (Patient Health/Nurse Clinic here for blood Visit 909 [facility] press... 4th [place] [address] Social History Tobacco Use Types [...] Visit Internal Medicine LogMargot sadler MD [address] [phone] (Wo rk) documented as of this encounter Visit Diagnoses Diagnosis Elevated blood pressure reading without diagnosis of hypertension - Primary documented in this encounter Care Teams Direct Service Professional Relationship Specialty Start Date End Date Lisseth Vang MD PCP - General 04/13/16 11/14/[address] [place], [place] [address] Carlota Landeros MD MD Urology 04/10/[address] [place], [place] [address] Luz Maira Kelly MD MD Internal Medicine 03/27/16 02/22/17 Lisseth Vang MD PCP Family Practice 03/30/16 11/14/[address] [place], [place] [address] documented as of this encounter
[2022-07-30 20:10] VITALS: BP 151/85; PULSE 72; RESP 16; O2SAT 96
--- OUTSIDE RECORDS SUMMARY | 2022-07-30 20:10 | XMS_ITS | Encounter Summary ---
:1945 Author Organization [place] Address [address] [place] [address]. [place] [address] Care Team Providers Name Role Phone Mehreen Johnston MD PhD Primary Care Provider [phone] Encounter Details Date Type Department Care Team Description 12/28/2014 Orders Only [facility] ER Anh Costa, Hypertension (Primary Physicians Heart REAL ESTATE LEGAL ASSISTANT SILVERWARE SUPERVISOR Dx) [facility] 4th Floor, Clinic [address] [place] [address] Social History Tobacco Use Types Packs/Day [...] Office Visit Internal Medicine LogeaMargot man MD [address] [place] [address] (Wo rk) documented as of this encounter Results Microalbumin quantitative random urine (01/04/2015 8:27 AM CDT) P athologist Signature Creatinine 189 mg/dL [facility] Urine [facility] Albumin Urine 8 mg/L [facility] mg/L [facility] Albumin Urine 4.41 0 - 25 [facility] mg/g Cr mg/g Cr [facility] Specimen Anatomical Collection Method Collection Time Receive d Time (Source) Location / / Volume Laterality Urine specimen 01/04/2015 8:27 AM 015 8:28 (specimen) CDT AM CDT Anh Costa APRN, CNP LAB - URINE ORDERABLES Performing Organization Address [facility] Phon e Number [address] Glucose (01/04/2015 8:27 AM CDT) P athologist Signature Glucose 98 70 - 99 [facility] mg/dL [facility] Comment: Effective 05/02/2014, the reference range for this assay has changed to reflect new instrumentation/methodology. Specimen Anatomical Collection Method Collection Time Receive d Time (Source) Location / / Volume Laterality Blood specimen 01/04/2015 8:27 AM 015 8:28 (specimen) CDT AM CDT Anh Costa APRN, CNP LAB - BLOOD ORDERABLES Performing Organization Address [facility] Phon e Number [address] CRP cardiac risk (01/04/2015 8:27 AM CDT) P athologist Signature CRP Cardiac 6.5 mg/L [facility] Risk [facility] Comment: Reference Values: Low Risk: ? <1.0 mg/L Average Risk: ? 1.0-3.0 mg/L High Risk: ?>3.0 mg/L Acute Inflammation: >8.0 mg/L Specimen Anatomical Collection Method Collection Time Receive d Time (Source) Location / / Volume Laterality Blood specimen 01/04/2015 8:27 AM 015 8:28 (specimen) CDT AM CDT Anh Costa APRN, CNP LAB - BLOOD ORDERABLES Performing Organization Address [facility] Phon e Number [address] N terminal pro BNP outpatient (01/04/2015 8:27 AM CDT) P athologist Signature N-Terminal Pro 120 0 - 125 [facility] Bnp pg/mL [facility] Comment: Reference range shown and results flagge [...] Organization Address City/State/ZIP Code Phon e Number [facility] [address] [place], [place] [id number] [place] [address] (ABNORMAL) Lipid panel reflex to direct LDL (01/04/2015 8:27 AM CDT) P athologist Signature Cholesterol 205 (H) <200 mg/dL [facility] Comment: LDL Cholesterol is the primary guide to therapy. The NCEP recommends further evaluation of: patients with cholesterol greater than 200 mg/dL if additional risk facto rs are present, cholesterol greater than 240 mg/dL, triglycerides greater than 1 50 mg/dL, or HDL less than 40 mg/dL. Triglycerides 154 (H) 0 - 150 mg/dL [facility] HDL Cholesterol 60 >50 mg/dL [facility] LDL Cholesterol Calculated 114 0 - 129 mg/dL [facility] Comment: LDL Cholesterol is the primary guide to therapy: LDL-cholesterol goal in high risk patients is <100 mg/dL and in very high risk patients is <70 mg/dL. VLDL-Cholesterol 31 (H) 0 - 30 mg/dL [facility] Cholesterol/HDL Ratio 3.4 0.0 - 5.0 [facility] Specimen Anatomical Collection Method Collection Time Receive d Time (Source) Location / / Volume Laterality Blood specimen 01/04/2015 8:27 AM 015 8:28 (specimen) CDT AM CDT Anh Salma Julissa REAL ESTATE LEGAL ASSISTANT SILVERWARE SUPERVISOR LAB - BLOOD ORDERABLES Performing Organization Address City/State/ZIP Code Phon e Number [facility] [address] documented in this encounter Visit Diagnoses Diagnosis Hypertension - Primary Unspecified essential hypertension documented in this encounter Care Teams Medical Safety Director Relationship Specialty Start Date End Date Mehreen Johnston MD PhD PCP - General Family Practice 11/27/13 03/25/15 documented as of this encounter
--- OUTSIDE RECORDS SUMMARY | 2022-07-30 20:10 | XMS_ITS | Encounter Summary ---
:1945 Author Organization [place] Address [address] [place] [address]. [place] [address] Care Team Providers Name Role Phone Mehreen Johnston MD PhD Primary Care Provider [phone] Encounter Details Date Type Department Care Team Description 12/06/2013 Radiant Appointment [facility] Breast [place], Lump or mass in Center Imaging MD Shanell breast 9 [facility] [address] [place] [address] 2nd Floor [address] [place] [phone] [place] [address] [phone] Social History Tobacco Use Types Packs/Day Years Used Date Smoking Tobacco: Never Smokeless Tobacco: Never Alcohol Use Standard Drinks/Week Comments Yes 0 (1 standard drink = 0.6 oz pure alcoho l) wine few times/wk Sex Assigned at Date Recorded Female 12/20/2018 4:10 PM CDT documented as of this encounter Progress Notes Shanell Baum MD - 12/07/2013 5:44 PM THERMOPLASTIC TECHNICIAN Quick Note: Bx results are negative. [phone] (home): left a message that her bx was negative. Shanell Baum MD MOPLASTIC TECHNICIAN documented in this encounter Plan of Treatment Upcoming Encounters Date Type Specialty Care Team Description 09/10/2022 Office Visit Internal Medicine LogeaisMargot MD 909 [facility] 4TH [place] [address] (Wo rk) documented as of this encounter Procedures Procedure Name Priority Date/Time Associated Diagnosis Comme nts SURGICAL PATHOLOGY Routine 12/06/2013 11:30 AM Re sults for this EXAM THERMOPLASTIC TECHNICIAN procedure are i n the results section. US BREAST LEFT Routine 12/06/2013 11:18 AM Result s for this LIMITED 1-3 THERMOPLASTIC TECHNICIAN procedure are i n QUADRANTS the results section. documented in this encounter Results Surgical pathology exam (12/06/2013 11:30 AM THERMOPLASTIC TECHNICIAN) Component Value Ref Test Analysis Performed At [facility] Range Method Time Signature Copath Report Patient Name: IMELDA GARCIA MR#: [id number] Specimen #: [id number] Collected: 12/06/2013 Received: 12/06/2013 Reported: 12/07/2013 16:22 Ordering Phy(s): SHANELL BAUM Additional Phy(s): VISHAL Hernandes [place] SPECIMEN(S): Breast needle biopsy, left US guided [...] Electronically signed out by: Odalis Hernandez M.D., [facility] CLINICAL HISTORY: The patient is a 68-year-old [...] Fellow/Odalis Hernandez MD/roberto 12/07/2013 CPT Codes: A: 27965-ZR4 TESTING LAB LOCATION: [facility], [address] ?? [address] [facility] SITE: [facility] Location: [facility] (B) Specimen Anatomical Collection Method Collection Time Receive d Time (Source) Location / / Volume Laterality 12/06/2013 11:30 12/06/2013 5:00 AM THERMOPLASTIC TECHNICIAN PM THERMOPLASTIC TECHNICIAN Narrative This result has an attachment that is no t available. Shanell Baum MD LAB - [facility] Performing Organization Address City/State/ZIP Code Phon e Number [facility] US Breast Unilateral lt (12/06/2013 11:18 AM THERMOPLASTIC TECHNICIAN) Anatomical Region Laterality Modality Breast Left Other Specimen (Source) Anatomical Location Collection Method / Collectio n Time Received Time / Laterality Volume Impressions 12/06/2013 11:18 AM THERMOPLASTIC TECHNICIAN IMPRESSION: BI-RADS CATEGORY: 4 - Suspicious Abnormality-Biopsy Should Be Considered Scarring from breast reduction surgery c ould have this appearance as well. RECOMMENDED FOLLOW-UP: Biopsy. Ultrasound-guided core needle biopsy lef t breast. The patient was given the results of the examination. VISHAL BLAKE MD Narrative 12/06/2013 11:18 AM THERMOPLASTIC TECHNICIAN Left breast ultrasound Comparisons: Mammograms November 27, [...] breast documented in this encounter Care Teams Physician In Private Practice Relationship Specialty Start Date End Date Mehreen Johnston MD PhD PCP - General Family Practice 11/27/13 03/25/15 documented as of this encounter
--- OUTSIDE RECORDS SUMMARY | 2022-07-30 20:10 | XMS_ITS | Encounter Summary ---
:1945 Author Organization [place] Address [address] [place] [address]. [place] [address] Care Team Providers Name Role Phone Mehreen Johnston MD PhD Primary Care Provider [phone] Reason for Visit Reason Onset Date Comments Labs Only 02/19/2015 Neg UA/UC Encounter Details Date Type Department Care Team Description 02/19/2015 Telephone [facility] Carlota Landeros, Labs Only (Neg UA/UC) [place] [address] [place], [place] [address] [place], [place] [phone] [address] (Wo rk) Social History Tobacco Use [...] Office Visit Internal Medicine Margot Branham MD [address] [address] (Wo rk) documented as of this encounter Visit Diagnoses Not on filedocumented in this encounter Care Teams Grants Administrator Relationship Specialty Start Date End Date Mehreen Johnston MD PhD PCP - General Family Practice 11/27/13 03/25/15 documented as of this encounter
--- OUTSIDE RECORDS SUMMARY | 2022-07-30 20:10 | XMS_ITS | Encounter Summary ---
:1945 Author Organization [place] Address [address] [place] [address]. [place] [address] Care Team Providers Name Role Phone Mehreen Johnston MD PhD Primary Care Provider [phone] Encounter Details Date Type Department Care Team Description 12/06/2013 Radiant Appointment [facility] Breast [place], Lump or mass in Center Imaging MD Lisseth breast [address] [place] [address] [place] [address] 2nd Floor [facility] [address] [place] [id number] [place] [address] [phone] Social History Tobacco Use Types Packs/Day Years [...] Visit Internal Medicine LogeaMargot man MD [address] [place] [address] (Wo rk) documented as of this encounter Procedures Procedure Name Priority Date/Time Associated Diagnosis Comme nts US BREAST BIOPSY Routine 12/06/2013 11:40 AM Lump Or Mass In R esults for this CORE NEEDLE LEFT ARTILLERY METEOROLOGICAL MAN Breast procedure a re in the results section. documented in this encounter Results US Breast Biopsy Core Needle, 1St Lesion Left (12/06/2013 11:40 AM ARTILLERY METEOROLOGICAL MAN) Anatomical Region Laterality Modality Breast Left Mammography Specimen (Source) Anatomical Location Collection Method / Collectio n Time Received Time / Laterality Volume Impressions 12/06/2013 11:18 AM ARTILLERY METEOROLOGICAL MAN IMPRESSION: BI-RADS CATEGORY: 4 - Suspicious Abnormality-Biopsy Should Be Considered Scarring from breast reduction surgery c ould have this appearance as well. RECOMMENDED FOLLOW-UP: Biopsy. Ultrasound-guided core needle biopsy lef t breast. The patient was given the results of the examination. VISHAL BLAKE MD Narrative 12/06/2013 11:18 AM ARTILLERY METEOROLOGICAL MAN Left breast ultrasound Comparisons: Mammograms November 27, [...] % solution 10 Given 12/06/2013 11:18 AM ARTILLERY METEOROLOGICAL MAN 5 mLs mL 10 mL, Injection, ONCE, On Wed12/06/13 at 1130, For 1 dose documented in this encounter Care Teams Brand Inspector Relationship Specialty Start Date End Date Mehreen Johnston MD PhD PCP - General Family Practice 11/27/13 03/25/15 documented as of this encounter
--- OUTSIDE RECORDS SUMMARY | 2022-07-30 20:10 | XMS_ITS | Encounter Summary ---
:1945 Author Organization [place] Address [address] [place] [address]. [place] [address] Care Team Providers Name Role Phone Mehreen Johnston MD PhD Primary Care Provider [phone] Encounter Details Date Type Department Care Team Description 05/09/2014 Orders Only [facility] Giselle Todd, 8th Floor, Clinic 8A Sharmaine Knightensteen XXX RESIGNE D XXX Building [address] [place] [address] [place] [address] [facility] [place], [place] [address] [phone] Social History Tobacco Use Types Packs/Day Years [...] Visit Internal Medicine Margot Branham MD 909 [facility] 4TH [place], [place] [address] (Wo rk) documented as of this encounter [...] filedocumented in this encounter Care Teams Take Away Man Relationship Specialty Start Date End Date Mhereen Johnston MD PhD PCP - General Family Practice 11/27/13 03/25/15 documented as of this encounter
--- OUTSIDE RECORDS SUMMARY | 2022-07-30 20:10 | XMS_ITS | Encounter Summary ---
:1945 Author Organization [place] Address [address] [place] [address]. [place] [address] Care Team Providers Name Role Phone Mehreen Johnston MD PhD Primary Care Provider Encounter Details Date Type Department Care Team Description 12/08/2013 Telephone [facility] Kelin Watson, ARRT [address] [phone] Social History Tobacco Use [...] Visit Internal Medicine LogeaMargot man MD [address] [place] [address] (Wo rk) documented as of this encounter Visit Diagnoses Not on filedocumented in this encounter Care Teams Harbor Department Manager Relationship Specialty Start Date End Date Mehreen Johnston MD PhD PCP - General Family Practice 11/27/13 03/25/15 documented as of this encounter
--- OUTSIDE RECORDS SUMMARY | 2022-07-30 20:10 | XMS_ITS | Encounter Summary ---
:1945 Author Organization [place] Address [address] [place] [address]. [place] [address] Care Team Providers Name Role Phone Mehreen Johnston MD PhD Primary Care Provider [phone] Encounter Details Date Type Department Care Team Description 02/18/2015 Orders Only UROLOGY CLINIC AND Carlota Landeros Fem janina stress [facility] incontin[facility] (Primary PROSTATE AND UROLOGIC [address] Dx ) CANCERS [address] [place], [place] [address] [address] FLO[address], [address] 420 [facility] [address] [place] [address] Social History Tobacco Use Types [...] Visit Internal Medicine Margot Branham MD 909 [facility] 4TH [place] [address] (Wo rk) Scheduled Orders Name Type Priority Associated Diagnoses Order S chedule Bridget-Operative Procedures Routine Female stress Ordered: Worksheet (Urology incontinence General) documented as of this encounter Visit Diagnoses Diagnosis Female stress incontinence - Primary documented in this encounter Care Teams Vehicle Upholsterer Relationship Specialty Start Date End Date Mehreen Johnston MD PhD PCP - General Family Practice 11/27/13 03/25/15 documented as of this encounter
--- OUTSIDE RECORDS SUMMARY | 2022-07-30 20:10 | XMS_ITS | Encounter Summary ---
:1945 Author Organization [place] Address [address] [place] [address]. [place] [address] Care Team Providers Name Role Phone Mehreen Johsnton MD PhD Primary Care Provider [phone] Reason for Visit Reason Onset Date Comments Refill Request 11/12/2014 azelastine Encounter Details Date Type Department Care Team Description 11/12/2014 Refill M [place] [facility] Women's Mehreen Johnston efill Request Clinic Gisella Butler MD PhD (azelastine) [address] [facility] 909 [facility] [address] [place] [address],[facility] 300 [place] [address] Social History Tobacco Use Types [...] 11/12/2014 9:10 AM CST Received request from [facility] to change the Azelastine spray prescriptionto a 90 day supply. This has been done. PLANNER documented in this encounter Plan of Treatment Upcoming Encounters Date Type Specialty Care Team Description 09/10/2022 Office Visit Internal Medicine Margot Branham MD [address] [address] (Wo rk) documented as of this encounter Visit Diagnoses Diagnosis Seasonal allergies - Primary Allergic rhinitis, cause unspecified documented in this encounter Care Teams Public Service Director Relationship Specialty Start Date End Date Mehreen Johnston MD PhD PCP - General Family Practice 11/27/13 03/25/15 documented as of this encounter
--- OUTSIDE RECORDS SUMMARY | 2022-07-30 20:10 | XMS_ITS | Encounter Summary ---
:1945 Author Organization [place] Address [address] [place] [address]. [place] [address] Care Team Providers Name Role Phone Mehreen Johnston MD PhD Primary Care Provider [phone] Reason for Visit Reason Comments Hypertension Encounter Details Date Type Department Care Team Description 01/04/2015 Office Visit [facility] Anh Costa (Primary Dx); Physicians Heart CLAUDIA Marsh CNP Hypertension [facility] 4th Floor, Clinic [address] [address] Social History Tobacco Use Types Packs/Day Years [...] 09/23/2009 Reason For Visit Patient here for [facility] early detection of atherosclerosis and CVD [...] ??? azelastine (ASTELIN) 137 MCG/SPRAY nasal spray [place] 1-2 sprays into both nostrils 2 times [...] ??? Heart attack Maternal Grandfather 82 of [place] ??? Cardiovascular Paternal Grandmother age 65 of [...] Visit Internal Medicine Margot Branham MD [address] [place] [address] [phone] (Wo rk) documented as of this encounter [...] only (Same Day) (01/04/2015 9:16 AM CDT) [facility] Method Time Signature Interpretation ECG Click View RADIOLOGY Image link RESULTS to view waveform and result Specimen (Source) Anatomical Collection Method Collection Time Re ceived Time Location / / Volume Laterality 01/04/2015 9:16 AM CDT nAh Costa APRN DELI CLERK ECG ORDERABLES Performing Organization Address City/State/ZIP Code Phon e Number RADIOLOGY RESULTS Vitamin D Deficiency (01/04/2015 8:27 AM CDT) P athologist Signature Vitamin D 60 30 - 75 [facility] Deficiency ug/L [facility] Comment: Season, race, dietary intake, and treatm ent affect the concentration of 30-bchzyhb-Whtcwtb D. Values may decrea se during winter [...] 8:28 CDT AM CDT Anh Costa APRN DELI CLERK LAB - BLOOD ORDERABLES Performing Organization Address City/[facility]/ZIP Code Phon e Number [facility] [address] [place] [address] [facility] Microalbumin quantitative random urine (01/04/2015 8:27 AM CDT) P athologist Signature Creatinine 189 mg/dL [facility] Urine [facility] Albumin Urine 8 mg/L [facility] mg/L [facility] Albumin Urine 4.41 0 - 25 [facility] mg/g Cr mg/g Cr [facility] Specimen Anatomical Collection Method Collection Time Receive d Time (Source) Location / / Volume Laterality Urine specimen 01/04/2015 8:27 AM 015 8:28 (specimen) CDT AM CDT Anh Salma Costa APRN, CNP LAB - URINE ORDERABLES Performing Organization Address City/[facility]/ZIP Code Phon e Number [facility] [address] Glucose (01/04/2015 8:27 AM CDT) athologist Signature Glucose 98 70 - 99 [facility] mg/dL [facility] Comment: Effective 05/02/2014, the reference range for this assay has changed to reflect new instrumentation/methodology. Specimen Anatomical Collection Method Collection Time Receive d Time (Source) Location / / Volume Laterality Blood specimen 01/04/2015 8:27 AM 015 8:28 (specimen) CDT AM CDT Anh Costa APRN, CNP LAB - BLOOD ORDERABLES Performing Organization Address City/[facility]/ZIP Code Phon e Number [facility] [address] [place] [id number] [facility] CRP cardiac risk (01/04/2015 8:27 AM CDT) P athologist Signature CRP Cardiac 6.5 mg/L [facility] Comment: Reference Values: Low Risk: ? <1.0 mg/L Average Risk: ? 1.0-3.0 mg/L High Risk: ?>3.0 mg/L Acute Inflammation: >8.0 mg/L Specimen Anatomical Collection Method Collection Time Receive d Time (Source) Location / / Volume Laterality Blood specimen 01/04/2015 8:27 AM 015 8:28 (specimen) CDT AM CDT Anh Costa APRN, CNP LAB - BLOOD ORDERABLES Performing Organization Address City/[facility]/ZIP Code Phon e Number [address] N terminal pro BNP outpatient (01/04/2015 8:27 AM CDT) athologist Signature N-Terminal Pro 120 0 - 125 [facility] Bnp pg/mL [facility] Comment: Reference range shown and results [...] LAB - BLOOD ORDERABLES Performing Organization Address City/[facility] Code Phon e Number [address] (ABNORMAL) Lipid panel reflex to direct [...] [facility] HDL Cholesterol 60 >50 mg/dL [facility] LDL Cholesterol Calculated 114 0 - 129 mg/dL [facility] Comment: LDL Cholesterol is the primary guide to therapy: LDL-cholesterol goal in high risk patients is <100 mg/dL and in very high risk patients is <70 mg/dL. VLDL-Cholesterol 31 (H) 0 - 30 mg/dL [facility] Cholesterol/HDL Ratio 3.4 0.0 - 5.0 [facility] Specimen Anatomical Collection Method Collection Time Receive d Time (Source) Location / / Volume Laterality Blood specimen 01/04/2015 8:27 AM 015 8:28 (specimen) CDT AM CDT Anh Costa APRN, CNP LAB - BLOOD ORDERABLES Performing Organization Address City/State/ZIP Code Phon e Number [facility] [address] [place] [address] [facility] Fundus Photography (01/04/2015) Narrative This result has [...] hypertension documented in this encounter Care Teams Last Code Striper Relationship Specialty Start Date End Date Mehreen Johnston MD PhD PCP - General Family Practice 11/27/13 03/25/15 documented as of this encounter
--- OUTSIDE RECORDS SUMMARY | 2022-07-30 20:10 | XMS_ITS | Encounter Summary ---
:1945 Author Organization [place] Address [address] [facility] [address] Care Team Providers Name Role Phone Mehreen Johnston MD PhD Primary Care Provider [phone] Reason for Visit Reason Onset Date Comments Medication Request 09/26/2014 mirilax Encounter Details Date Type Department Care Team Description 09/26/[address] [facility] Women's Nurse, p s Medication Request Clinic [place] (mirilax) [address] [facility] Professional Bldg [facility] [address] [place] [phone] Social History Tobacco Use Types Packs/Day Years [...] clinic Wednesday, 10/01. Plan was agreed to. T MINISTRIES DIRECTOR documented in this encounter Plan of Treatment Upcoming Encounters Date Type Specialty Care Team Description 09/10/2022 Office Visit Internal Medicine Margot Branham MD [address] [address] (Wo rk) documented as of this encounter Visit Diagnoses Diagnosis Constipation - Primary Unspecified constipation documented in this encounter Care Teams Farm Operations Technical Director Relationship Specialty Start Date End Date Mehreen Johnston MD PhD PCP - General Family Practice 11/27/13 03/25/15 documented as of this encounter
--- OUTSIDE RECORDS SUMMARY | 2022-07-30 20:10 | XMS_ITS | Encounter Summary ---
:1945 Author Organization [place] Address [address] [facility] [place] [address] Care Team Providers Name Role Phone Mehreen Johnston MD PhD Primary Care Provider [phone] Reason for Visit Reason Onset Date Comments Refill Request 08/29/2014 azelastine Encounter Details Date Type Department Care Team Description 08/29/2014 Refill [facility] Women's Nurse, p s Refill Request Clinic [place] (azelastine) [address] Professional Bldg [facility] [address] [place], [place] [phone] Social History Tobacco Use [...] AM CST Astelin spray called into pharmacy. ENT LOOPER documented in this encounter Plan of Treatment Upcoming Encounters Date Type Specialty Care Team Description 09/10/2022 Office Visit Internal Medicine LogeaisMargot MD [address] [phone] (Wo rk) documented as of this encounter Visit Diagnoses Diagnosis Seasonal allergies Allergic rhinitis, cause unspecified documented in this encounter Care Teams Derrick Engineer Relationship Specialty Start Date End Date Mehreen Johnston MD PhD PCP - General Family Practice 11/27/13 03/25/15 documented as of this encounter
--- OUTSIDE RECORDS SUMMARY | 2022-07-30 20:10 | XMS_ITS | Encounter Summary ---
:1945 Author Organization [place] Address [address] [place] [address]. [place] [address] Care Team Providers Name Role Phone Mehreen Johnston MD PhD Primary Care Provider [phone] Reason for Visit Reason Comments RECHECK mixed incontinence Encounter Details Date Type Department Care Team Description 02/18/2015 Office Visit [facility] Nakhelio Nissrine A, Pattiee d incontinence urge and stress (male)(female) (Primary Dx); Clinic Evette Combs MD Urgency of urination; [address] Urinary retention [place], [place] [address] [address] [place], [place] [phone] [address] Social History Tobacco Use Types Packs/Day [...] following checklist. Your surgery is on: The wagon person will contact you within 1 week of your consult with the surgeon. If you do not hear from them, please call the clinic agricultural produce sorter Pediatric Physician Assistant for your provider. Date: Time: Prearrival times can vary depending on location/type of surgery: [place] - 2 hour pre-arrival [facility]/[place] - 2 hour pre-arrival [place] - 1 hour pre-arrival Procedure: Mid-urethral sling Anesthesia: MAC Post-op: 2 weeks and 6 weeks Notes: Note: These times may change. A nurse will call you before surgery to confirm. If you have not received a call or if you have more questions, please call us on the working day before your surgery: ? [place]: [phone] or [phone] (9am to 5:30pm) ? [facility]: [phone] (8am to 6:00pm) ? [place]: [phone] (9 am to 5:30pm) Prior to surgery [...] you Primary Doctor is not within the [employer] system, you will need to have your pre-op physical faxed to us to be scanned into your chart. - [place]: [phone] - [facility] ([place]): [phone] [facility]): [phone] ? Call your insurance company. Ask if you need pre-approval for your surgery. If you do not have insurance, please let us know. If you wish to speak to the financial assistance specialist, please alert the clinic staff so this can be arranged. ? Arrange for someone to drive you home after surgery. Special Needs Nanny will need to be a responsible adult [...] Do not smoke, drink alcohol, or take ubud-vuf-vajvqet medicine for 24 hours before and after surgery. ? If you take prescribed drugs, you may need to stop them until after the surgery. Discuss what medications to take or not take prior to surgery with your Primary Doctor at your pre-op physical. Avoid fudt-nun-lkliutx blood-thinning medications such as Aspirin, Ibuprofen, vitamin [...] or add deodorant, cologne, lotion, makeup, nail latvian or jewelry to surgery. If you wear [...] you take. Include vitamins, minerals, herbs, and xkiw-fwr-lypepvk drugs. Note any drug allergies. - A copy of your advance health care directive, if you have one. This tells us what treatment you would want--and who would make health care decisions--if you could no longer speak for yourself. You may request this form in advance or download it from [email or web address]. - A case for glasses, contact lenses, [...] during non- clinic hours, please call the [facility] on-call line at [phone] and ask the Tobacco Sweeper to page the on-call Provider for your specialty. The on-call Provider will call you back and can triage your symptoms and further advise. If you arehaving an emergency, always call 911 or seek immediate evaluation at the Emergency Room. Locations [address] [address] (patient registration) [phone] (main line) [email or web address] [facility] [address] [place] [id number] [place] [address], 3rd floor for check-in [phone] (patient registration) [phone] (main line) [email or web address] documented in this encounter Progress Notes [...] ml. 6. Left hemipelvis InterStim lead on candy attendant imaging. She was still having problems with [...] of surgery once completed Location of surgery: [facility] History and physical and any other testing [...] Visit Internal Medicine LogeaisMargot MD [address] [phone] (Wo rk) documented as of this encounter [...] Microscopic and Culture (02/18/2015 4:50 PM CDT) [facility] Method Time Signature Color Urine Yellow [facility] Appearance Urine Clear [facility] Glucose Urine Negative NEG mg/dL [facility] Bilirubin Urine Negative NEG [facility] Ketones Urine Negative NEG mg/dL [facility] Specific [place] 1.015 1.003 - [place] Urine 1.035 [facility] Blood Urine Negative NEG [facility] pH Urine 6.0 5.0 - 7.0 [place] pH [facility] Protein Albumin Negative NEG mg/dL [place] Urine [facility] Urobilinogen Normal 0.0 - 2.0 [place] mg/dL mg/dL [facility] Nitrite Urine Negative NEG [facility] Leukocyte Negative NEG [place] Esterase Urine [facility] Source Midstream [place] Urine [facility] Specimen Anatomical Collection Method Collection Time Receive d Time (Source) Location / / Volume Laterality Urine specimen 02/18/2015 4:50 PM 015 5:05 (specimen) CDT PM CDT Carlota Landeros MD LAB - URINE ORDERABLES Performing Organization Address City/State/ZIP Code Phon e Number [facility] [address] [place] [address] documented in this encounter Visit Diagnoses Diagnosis Mixed incontinence urge and stress (male )(female) - Primary Urgency of urination Urinary retention Retention of urine, unspecified documented in this encounter Care Teams Yarn Sorter Relationship Specialty Start Date End Date Mehreen Johnston MD PhD PCP - General Family Practice 11/27/13 03/25/15 documented as of this encounter
--- OUTSIDE RECORDS SUMMARY | 2022-07-30 20:10 | XMS_ITS | Encounter Summary ---
:1945 Author Organization [place] Address [address] [place] [address]. [place] [address] Care Team Providers Name Role Phone Mehreen Johnston MD PhD Primary Care Provider [phone] Reason for Visit Reason Comments Urgent Care Pharyngitis sore throat and coughing att acks. 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 Encounter Details Date Type Department Care Team Description 06/11/2014 Office Visit [facility] Phyllis Downey Viral bro nchitis (Primary Dx); Urgent Care Reed Teran PA-C Acute pharyngitis Diana [address] [facility] [address] [place] [id number] [phone] (Wo rk) Social History Tobacco Use Types Packs/Day Years Used Date Smoking Tobacco: Never Smokeless Tobacco: Never Alcohol Use Standard Drinks/Week Comments Yes 0 (1 standard drink = 0.6 oz pure alcoho l) wine few times/wk Sex Assigned at Date Recorded Female 12/20/2018 4:10 PM CDT documented as of this encounter Last Filed Vital Signs Vital Sign Reading Time Taken Comments Blood Pressure 128/78 06/11/2014 7:03 PM CDT Pulse 72 06/11/2014 7:03 PM CDT Temperature 36.7 ??C (98.1 ??F) 06/11/2014 7:03 PM CDT Respiratory Rate 12 06/11/2014 7:03 PM CDT Oxygen Saturation 97% 06/11/2014 7:03 PM CDT Inhaled Oxygen Concentration - - Weight 80.7 kg (178 lb) 06/11/2014 7:03 PM CDT Height 168.9 cm (5' 6.5) 06/11/2014 7:03 PM CDT Body Mass Index 28.3 06/11/2014 7:03 PM CDT documented in this encounter Progress Phyllis Artis PA-C - 06/11/2014 8:46 PM CDT SUBJECTIVE: Yamileth Sheikh is a 68 year old female presenting with a chief complaint of cough and sore throat. Onset of symptoms was 3 day(s) ago. Course of illness is worsening. Severity moderate Current and Associated symptoms: nasal drainage Treatment measures tried include OTC meds. Predisposing factors include None. Past Medical History Diagnosis Date ??? Rhinitis ??? Fibroid uterus ??? Deviated nasal septum Dr Baer ENT ??? PONV (postoperative nausea and vomiting) ??? Osteoarthritis right hip ??? Hypertension no medication Current Outpatient Prescriptions Medication Sig Dispense Refill ??? benzonatate (TESSALON) 200 MG capsule Take 1 capsule (200 mg) by mouth 3 times daily as needed for cough 21 capsule 0 ??? B Complex Vitamins (VITAMIN-B COMPLEX PO) Take 1 tablet by mouth daily ??? vitamin C (VITAMIN C) 250 MG tablet Take 250 mg by mouth daily ??? LYSINE PO Take 1 capsule by mouth daily ??? azelastine (ASTELIN) 137 MCG/SPRAY nasal spray [place] 1-2 sprays into both nostrils 2 times daily1 Bottle 3 ??? estradiol (ESTRING) 2 MG vaginal ring [...] capsules by mouth 2 times daily. ??? cholecalciferol (VITAMIN D3) 1000 UNIT tablet Take 2 tablets by mouth daily. ??? valACYclovir (VALTREX) 1000 mg tablet Take 1 tablet (1,000 mg) by mouth 3 times daily 20 tablet 1 ??? hydrocortisone-pramoxine (PROCTOFOAM-HC) rectal foam Place 1 applicator rectally 2 times daily 15 g 6 ??? OTHER MEDICAL SUPPLIES ROCÍO stockings knee length USE DIRECTED . ??? OTHER MEDICAL SUPPLIES ROCÍO Stockings thigh length History Substance Use Topics ??? Smoking status: Never Smoker ??? Smokeless tobacco: Never Used ??? Alcohol Use: Yes Comment: wine few times/wk ROS: Review of systems negative except as stated above. OBJECTIVE :BP 128/78 Pulse 72 Temp(Src) 98.1 ??F (36.7 ??C) (Oral) Resp 12 Ht 5' 6.5 (1.689 m) Wt 178 lb (80.74 kg) BMI 28.3 kg/m2 SpO2 97% ? No GENERAL APPEARANCE: healthy, alert and no distress EYES: EOMI, PERRL, conjunctiva clear HENT: ear canals and TM's normal. Nose and mouth without ulcers, erythema or lesions NECK: supple, nontender, no lymphadenopathy RESP: lungs clear to auscultation - no rales, rhonchi or wheezes CV: regular rates and rhythm, normal S1 S2, no murmur noted SKIN: no suspicious lesions or rashes Results for orders placed in visit on 06/11/14 RAPID STREP SCREEN Result Value Range Specimen Description Throat Rapid Strep A Screen Value: NEGATIVE: No Group A streptococcal antigen detected by immunoassay, await culture report. Micro Report Status FINAL 06/11/2014 ASSESSMENT: Viral bronchitis PLAN: Supportive cares. F/u if no improvement. Tessalon given. Cough syrup of choice and OTC drops. nsaids. documented in this encounter Nursing Notes Jena Pruitt CMA - 06/11/2014 7:05 PM CDT Chief Complaint Patient presents with ??? Urgent Care ??? Pharyngitis sore throat and coughing attacks. 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 Initial BP 128/78 Pulse 72 Temp(Src) 98.1 ??F (36.7 ??C) (Oral) Resp 12 Ht 5' 6.5 (1.689 m) Wt 178 lb (80.74 kg) BMI 28.3 kg/m2 SpO2 97% ? No Estimated body mass index is 28.3 kg/(m^2) as calculated from the following: Height as of this encounter: 5' 6.5 (1.689 m). Weight as of this encounter: 178 lb (80.74 kg).. BP completed using cuff size: marti roberts cma documented in this encounter Plan of Treatment Upcoming Encounters Date Type Specialty Care Team Description 09/10/2022 Office Visit Internal Medicine Logeais, MD Margot [address] [place] [phone] (Wo rk) documented as of this encounter Procedures Procedure Name Priority Date/Time Associated Diagnosis Comme nts RAPID STREP SCREEN Routine 06/11/2014 7:19 PM Acute Pharyngiti s Results for this THROAT SWAB CDT procedure are i n the results section. BETA HEMOLYTIC Routine 06/11/2014 7:19 PM Acute Pharyngitis Re sults for this STREP GROUP A CDT procedure are in CULTURE the results section. documented in this encounter Results Beta strep group A culture (06/11/2014 7:19 PM CDT) Component Value Ref Test Analysis Performed At [facility] [employer] Method Time Signature Specimen Throat [facility] Culture Micro No Beta [place] Streptococcus CLINICS isolated [place] Micro Report FINAL 06/13/2014 [place] Status [facility] Specimen Anatomical Collection Method Collection Time Receive d Time (Source) Location / / Volume Laterality Specimen from 06/11/2014 7:19 PM 06/11/20 14 7:20 throat CDT PM CDT (specimen) Phyllis Downey PA-C LAB - MICRO GENERAL TOM CALVIN Performing Organization Address City/State/ZIP Code Phon e Number [facility] [address] [place] [address] [place] Strep, Rapid Screen (06/11/2014 7:19 PM CDT) Component Value Ref Test Analysis Performed At [facility] Range Method Time Signature Specimen Throat [place] Description [facility] Rapid Strep A NEGATIVE: No Group A strepto coccal antigen detected by immunoassay, await [place] Screen culture report. [facility] Micro Report FINAL 06/11/2014 [place] Status [facility] Specimen Anatomical Collection Method Collection Time Receive d Time (Source) Location / / Volume Laterality Specimen from 06/11/2014 7:19 PM 06/11/20 14 7:20 throat CDT PM CDT (specimen) Phyllis Downey PA-C LAB - MICRO GENERAL ORDERA BLES Performing Organization Address City/State/ZIP Code Phon e Number [facility] [address] [place] [address] [place] documented in this encounter Visit Diagnoses Diagnosis Viral bronchitis - Primary Acute bronchitis Acute pharyngitis documented in this encounter Care Teams Wharf Attendant Relationship Specialty Start Date End Date Mehreen Johnston MD PhD PCP - General Family Practice 11/27/13 03/25/15 documented as of this encounter
--- OUTSIDE RECORDS SUMMARY | 2022-07-30 20:10 | XMS_ITS | Encounter Summary ---
:1945 Author Organization [place] Address [address] [place] [address]. [place] [address] Care Team Providers Name Role Phone Mehreen Johnston MD PhD Primary Care Provider [phone] Reason for Visit Reason Onset Date Comments Path Results 12/08/2013 Breat Biopsy Encounter Details Date Type Department Care Team Description 12/08/2013 Telephone [facility] Kelin Watson Results (MERE Ibrahim Biopsy) [address] [address] Social History Tobacco Use Types [...] Kelin Watson ARRT - 12/08/2013 1:16 PM LIP CUTTER AND SCORER Pathology Results Reporting December 08, 2013 1:16 PM Pathology Report Reviewed By: Dr. Balbuena Recommendation: Routine mammography Notification of Results and Recommendation:Left message for patient to call [facility] Surgical/Medical Consultation: Date: Time: Provider: Comments: Left message for patient on 12/08 at 1300 MIKEY CUTTER AND SCORER documented in this encounter Plan of Treatment Upcoming Encounters Date Type Specialty Care Team Description 09/10/2022 Office Visit Internal Medicine Margot Branham MD [address] [address] (Wo rk) documented as of this encounter Visit Diagnoses Not on filedocumented in this encounter Care Teams Water Truck Driver Relationship Specialty Start Date End Date Mehreen Johnston MD PhD PCP - General Family Practice 11/27/13 03/25/15 documented as of this encounter
--- OUTSIDE RECORDS SUMMARY | 2022-07-30 20:10 | XMS_ITS | Encounter Summary ---
:1945 Author Organization [place] Address [address] [place] [address]. [place] [address] Care Team Providers Name Role Phone Mehreen Johnston MD PhD Primary Care Provider [phone] Reason for Visit Reason Comments Osteoporosis Encounter Details Date Type Department Care Team Description 01/01/2014 Office Visit [facility] Mehreen Johnston a (Primary Dx); [facility] MD Luke PhD Bacterial vaginosis; [address] CARDIOVASCULAR SCREENING; LDL GOAL LESS THAN 130; [place] [facility] [place], [place] Es sential hypertension, benign; BLDG [address] Postmenopausal bleeding 3RD FLR,[facility] [address] (Work) [facility] 88 [place], [place] [address] (Fax) [phone] Social History Tobacco Use Types Packs/Day Years [...] ??? azelastine (ASTELIN) 137 MCG/SPRAY nasal spray [place] 1-2 sprays into both nostrils 2 times [...] ??? Heart attack Maternal Grandfather 82 of [place] ??? Cardiovascular Paternal Grandmother age 65 of [...] appearance No enlargement of the [place] or [place] glands. Urethra and bladder are non-tender. Vagina [...] Office Visit Internal Medicine LogeaMargot man MD [address] [place] [address] (Wo rk) documented as of this encounter [...] CDT) athologist Signature CRP Cardiac 4.7 mg/L [facility] LABS Comment: Reference Values: Low Risk: [...] Phon e Number [facility] [address] [place], [place] [id number] [place] [address] LABS (ABNORMAL) Basic Metabolic Panel (01/01/2014 11:09 AM CDT) P athologist Signature Sodium 139 133 - 144 [facility] [place] mmol/L [facility] Potassium 4.2 3.4 - 5.3 [facility] [place] mmol/L [facility] Chloride 104 94 - 109 [facility] [place] mmol/L [facility] Carbon Dioxide 30 20 - 32 [facility] [place] mmol/L [facility] Anion Gap 5 (L) 6 - 17 [facility] [place] mmol/L [facility] Glucose 88 60 - 99 [facility] [place] mg/dL [facility] Urea Nitrogen 16 7 - 30 [facility] [place] mg/dL [facility] Creatinine 0.70 0.52 - [facility] [place] 1.04 mg/dL [facility] GFR Estimate 83 >60 [facility] mL/min/1.7 [facility] GFR Estimate If >90 >60 [facility] Black mL/min/1.7 [facility] Calcium 9.1 8.5 - 10.4 [facility] [place] mg/dL [facility] Specimen Anatomical Collection Method Collection Time Receive d Time (Source) Location / / Volume Laterality Blood specimen 01/01/2014 11:09 4 (specimen) AM CDT 11:10 AM CDT Mehreen Johnston MD PhD LAB - BLOOD ORDERABLES Performing Organization Address City/State/ZIP Code Phon e Number [facility], N-terminal (01/01/2014 11:09 AM CDT) athologist Signature Parathyroid 47 12 - 72 [facility] Hormone Intact pg/mL [facility] LABS Specimen Anatomical Collection Method Collection Time Receive d Time (Source) Location / / Volume Laterality Blood specimen 01/01/2014 11:09 4 (specimen) AM CDT 11:10 AM CDT Mehreen Johnston MD PhD LAB - BLOOD ORDERABLES Performing Organization Address City/State/ZIP Code Phon e Number [id number] [place] [address] LABS (ABNORMAL) Phosphorus (01/01/2014 11:09 AM CDT) athologist Signature Phosphorus 4.8 (H) 2.5 - 4.5 [facility] mg/dL [facility] Specimen Anatomical Collection Method Collection Time Receive d Time (Source) Location / / Volume Laterality Blood specimen 01/01/2014 11:09 4 (specimen) AM CDT 11:10 AM CDT Mehreen Johnston MD PhD LAB - BLOOD ORDERABLES Performing Organization Address City/State/ZIP Code Phon e Number U [facility] Magnesium (01/01/2014 11:09 AM CDT) athologist Signature Magnesium 2.0 1.6 - 2.3 [facility] mg/dL [facility] Specimen Anatomical Collection Method Collection Time Receive d Time (Source) Location / / Volume Laterality Blood specimen 01/01/2014 11:09 4 (specimen) AM CDT 11:10 AM CDT Mehreen Johnston MD PhD LAB - BLOOD ORDERABLES Performing Organization Address City/State/ZIP Code Phon e Number U [facility] OF [facility] Bone specific alk phosphatase (01/01/2014 11:09 AM CDT) P athologist Signature Bone Spec Alk 14.8 [facility] Phosphatase LAB Comment: Unit: ug/L (Note) INTERPRETIVE [...] specific alk anil phosphatase result. Performed by [email or web address], [address] [place] [id number] [email or web address], Sumit Paul MD, L ab. Director Specimen Anatomical Collection Method Collection Time Receive d Time (Source) Location / / Volume Laterality Blood specimen 01/01/2014 11:09 4 (specimen) AM CDT 11:10 AM CDT Mehreen Johnston MD PhD LAB - BLOOD ORDERABLES Performing Organization Address City/State/ZIP Code Phon e Number [place] [phone] [place] [address] [facility] DORAL LAB Wet prep (01/01/2014 9:30 AM CDT) Patholo gist Method Time Signature Specimen Vagina FUM Description [place] LAB Wet Prep Few PMNs seen [facility] No clue cells seen [place] No Trichomonas seen LAB No yeast seen Micro Report FINAL [facility] Status 01/01/2014 [place] [facility] Specimen Anatomical Collection Method Collection Time Receive d Time (Source) Location / / Volume Laterality 01/01/2014 9:30 AM 4 CDT 10:45 AM CDT Mehreen Johnston MD PhD LAB - MICRO GENERAL ORDERABL ES Performing Organization Address City/State/ZIP Code Phon e Number [facility] [address] [place], [place] [phone] [place] [address] LAB documented in this encounter Visit Diagnoses Diagnosis Osteopenia - Primary Disorder of bone and cartilage, unspecif ied Bacterial vaginosis Vaginitis and vulvovaginitis, unspecifie d CARDIOVASCULAR SCREENING; LDL GOAL LESS THAN 130 Essential hypertension, benign Postmenopausal bleeding documented in this encounter Care Teams Tmh Teacher Relationship Specialty Start Date End Date Mehreen Johnston MD PhD PCP - General Family Practice 11/27/13 03/25/15 documented as of this encounter
--- OUTSIDE RECORDS SUMMARY | 2022-07-30 20:10 | XMS_ITS | Encounter Summary ---
:1945 Author Organization [facility] Address [address] [place] [address]. [place] [address] Care Team Providers Name Role Phone Mehreen Johnston MD PhD Primary Care Provider [phone] Encounter Details Date Type Department Care Team Description 12/06/2013 Radiant Appointment [facility] Breast [place], Lump or mass in Center Imaging MD Lisseth breast [address] [place] [address] [place] [address] 2nd Floor [facility] [address] [place] [phone] [place] [address] [phone] Social History Tobacco Use Types Packs/Day Years [...] Visit Internal Medicine Margot Branham MD [address] [place] [address] (Wo rk) documented as of this encounter Procedures Procedure Name Priority Date/Time Associated Diagnosis Comme nts MA POST PROCEDURE Routine 12/06/2013 12:07 PM Lump or mass in Results for this LEFT WAFER MOUNTER breast procedure are i n the results section. documented in this encounter Results MA Post Procedure Left (12/06/2013 12:07 PM WAFER MOUNTER) Anatomical Region Laterality Modality Breast Left Mammography Specimen (Source) Anatomical Location Collection Method / Collectio n Time Received Time / Laterality Volume Addenda Addendum by Vishal Blake MD on 12/28/19 14 3:56 PM CDT Histology of benign breast tissue and fi brous stroma concordant with imaging findings. Recommendation: Yearly mammography. VISHAL BLAKE MD Narrative 12/06/2013 4:58 PM WAFER MOUNTER Exam: Ultrasound-guided core needle biopsy left breast, [...] breast documented in this encounter Care Teams Intellectual Property Manager Relationship Specialty Start Date End Date Mehreen Johnston MD PhD PCP - General Family Practice 11/27/13 03/25/15 documented as of this encounter
--- OUTSIDE RECORDS SUMMARY | 2022-07-30 20:10 | XMS_ITS | Encounter Summary ---
:1945 Author Organization [facility] Address [address] [place] [address]. [place] [address] Care Team Providers Name Role Phone Mehreen Johnston MD PhD Primary Care Provider [phone] Encounter Details Date Type Department Care Team Description 01/18/2015 Orders Only [facility] Mehreen Johnston MD [facility] Laboratory PhD 500 [facility] E [address] [place] [address] [place], [place] [address] (Wo rk) Social History Tobacco Use Types [...] Visit Internal Medicine LogeaMargot man MD [address] [phone] (Wo rk) documented as of this encounter Procedures Procedure Name Priority Date/Time Associated Diagnosis Comme nts ROUTINE UA WITH Routine 01/18/2015 7:00 AM Proteinuria Result s for this MICROSCOPIC REFLEX CDT procedure are in TO CULTURE the results section. documented in this encounter Results (ABNORMAL) Routine UA with Micro Reflex to Culture (01/18/2015 7:00 AM CDT) [facility] Method Time Signature Color Urine Light Yellow [facility] Appearance Urine Clear [facility] Glucose Urine Negative NEG mg/dL [facility] Bilirubin Urine Negative NEG [facility] Ketones Urine Negative NEG mg/dL [facility] Specific [place] 1.011 1.003 - [facility] Urine 1.035 [facility] Blood Urine Negative NEG [facility] pH Urine 5.5 5.0 - 7.0 [facility] pH [facility] Protein Albumin Negative NEG mg/dL [facility] Urine [facility] Urobilinogen Normal 0.0 - 2.0 [place] [facility] mg/dL mg/dL [facility] Nitrite Urine Negative NEG [facility] Leukocyte Negative NEG [facility] Esterase Urine [facility] Source Midstream [facility] Urine [facility] WBC Urine <1 0 - 2 [facility] /HPF [facility] RBC Urine 1 0 - 2 [facility] /HPF [facility] Bacteria Urine Few (A) NEG /HPF [facility] Squamous 1 0 - 1 [facility] Epithelial /HPF /HPF [facility] Mucous Urine Present (A) NEG /LPF [facility] Specimen Anatomical Collection Method Collection Time Receive d Time (Source) Location / / Volume Laterality Urine specimen 01/18/2015 7:00 AM 015 7:14 (specimen) CDT AM CDT Mehreen Johnston MD PhD LAB - URINE ORDERABLES Performing Organization Address City/State/ZIP Code Phon e Number [facility] [address] documented in this encounter Visit Diagnoses Diagnosis Proteinuria documented in this encounter Care Teams Oncology Registrar Relationship Specialty Start Date End Date Mehreen Johnston MD PhD PCP - General Family Practice 11/27/13 03/25/15 documented as of this encounter
--- OUTSIDE RECORDS SUMMARY | 2022-07-30 20:10 | XMS_ITS | Encounter Summary ---
:1945 Author Organization [facility] Address [address] [place] [address]. [place] [address] Care Team Providers Name Role Phone Mehreen Johnston MD PhD Primary Care Provider [phone] Encounter Details Date Type Department Care Team Description 02/04/2014 Results Only [facility] Women's Mehreen Johnston [facility], [facility] PhD [place] [facility] 909 [facility] 3RD TXR,ALYSSA [address] [place] [address] 606 24[facility] [place] [address] Social History Tobacco Use Types Packs/Day Years [...] Visit Internal Medicine LogMargot sadler MD 909 [facility] [address]TH [place] [address] (Wo rk) documented as of this encounter Procedures Procedure Name Priority Date/Time Associated Comments Diagnosis CREATININE TIMED Routine 02/04/2014 7:00 AM Resul ts for this URINE CDT procedure are i n the results section. documented in this encounter Results Creatinine timed urine (02/04/2014 7:00 AM CDT) P athologist Signature Creatinine 54 mg/dL [facility] Urine LAB Creatinine 1.03 0.80 - [facility] Urine Timed 1.80 LAB Comment: Units: g/24h Volume in mL 1,900 mL [facility] LA B Duration in hours 24.0 h [facility] DE LAB Specimen Anatomical Collection Method Collection Time Receive d Time (Source) Location / / Volume Laterality 02/04/2014 7:00 AM 7:50 CDT AM CDT Mehreen Johnston MD PhD LAB - URINE ORDERABLES Performing Organization Address City/State/ZIP Code Phon e Number [facility] [address] [place], [place] [phone] [place] [address] LAB documented in this encounter Visit Diagnoses Not on filedocumented in this encounter Care Teams Open Source Developer Relationship Specialty Start Date End Date Mehreen Johnston MD PhD PCP - General Family Practice 11/27/13 03/25/15 documented as of this encounter
--- OUTSIDE RECORDS SUMMARY | 2022-07-30 20:10 | XMS_ITS | Encounter Summary ---
:1945 Author Organization [place] Address [address] [facility] [place] [address] Care Team Providers Name Role Phone Mehreen Johnston MD PhD Primary Care Provider [phone] Reason for Visit Reason Onset Date Comments Refill Request 08/16/2014 Azelastine Encounter Details Date Type Department Care Team Description 08/16/2014 Refill [facility] Women's Nurse, p Whs Refill Request [facility] [place] (Azelastine) 606 [address] Professional Bldg [facility] 88 [address],[place] [address] [place], [place] [phone] Social History Tobacco Use [...] Visit Internal Medicine Margot Branham MD [address] [address] (Wo rk) documented as of this encounter Visit Diagnoses Diagnosis Seasonal allergies Allergic rhinitis, cause unspecified documented in this encounter Care Teams Horse Riding Coach Or Instructor Relationship Specialty Start Date End Date Mehreen Johnston MD PhD PCP - General Family Practice 11/27/13 03/25/15 documented as of this encounter
--- OUTSIDE RECORDS SUMMARY | 2022-07-30 20:10 | XMS_ITS | Encounter Summary ---
:1945 Author Organization [facility] Address [address] [place] [address]. [place] [address] Care Team Providers Name Role Phone Mehreen Johnston MD PhD Primary Care Provider [phone] Reason for Visit Reason Comments Physical No pap smear needed Encounter Details Date Type Department Care Team Description 01/07/2015 Office Visit [facility] Mehreen Johnston g eneral medical examination at a health care facility (Primary Dx); [facility] MD Luke PhD External hemorrhoids; [address] Vaginal dryness; [place] [facility] [place], [place] At rophic vaginitis; BLDG [address] Seasonal allergies; 3RD FLR,[place] 300 Proteinuria; [address] (Work) Disorder of bone and cartilage, unspecif ied [facility] 88 [place], [place] [address] (Fax) [phone] Social History Tobacco Use Types Packs/Day Years [...] progesterone. No bleeding or spotting. Went to [place] [facility] in March2014, for second opinion. I do not have those records. Sister had uterine cancer. Not sexually active for 6 yrs. No vaginal itching Had mammogram 12/2014, had DXA 11/20/2013. Has osteopenia - T=-2.2 in the spine L1 and L2. Drinks Milk1 glass/day and 1/2 c yogurt/day. Calcium citrate -500mg in 3 capsules - 3 capsules bid - Vitamin [id number] bid, rare multi vitamin - exercise walking 30 min/day Seen at [facility] for cardiac risk last Wednesday01/04/15. There was [...] ??? azelastine (ASTELIN) 137 MCG/SPRAY nasal spray [place] 1-2 sprays into both nostrils 2 times [...] ??? Heart attack Maternal Grandfather 82 of [place] ??? 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 Smoking status: [...] 1 son - - still working at [employer] - algerian as a second language - lives in [...] hair distribution. No enlargementof the [place] or [place] glands. Urethra and bladder are non-tender. Vagina [...] Wants TSH done, was recently seen [facility], had recent mammogram - Dexa due [...] Bleeding - get records from visit to [place] [facility] in 03/2014 Plan: estradiol (ESTRING) 2 MG vaginal ring Renewed (627.3) Atrophic vaginitis Comment: as above Plan: estradiol (ESTRACE VAGINAL) 0.1 MG/GM vaginal cream (477.9) Seasonal allergies Comment: having symptoms Plan: azelastine (ASTELIN) 137 MCG/SPRAY nasal spray, OTOLARYNGOLOGY REFERRAL (791.0) Proteinuria Comment: had abnormal UA recently with hyaline casts and albumin Plan: Routine UA with Micro Reflex to Culture First AM specimen Mehreen Jhonston MD, PhD documented in this encounter Nursing [...] Internal Medicine Margot Branham MD [address] [address] (Wo rk) documented as of this encounter Procedures Procedure Name Priority Date/Time Associated Diagnosis Comme nts TSH WITH FREE T4 Routine 01/07/2015 5:07 PM Routine General Re sults for this REFLEX CDT Medical Examination procedur e are in At A [facility] Care the results Facility section. HC CERV/VAG CANC Routine 01/07/2015 4:10 PM Routine General SCRN,PELV/BREAST CDT Medical Examination EXAM At A Health Care Facility documented in this encounter Results (ABNORMAL) Routine UA with Micro Reflex to Culture (01/18/2015 7:00 AM CDT) [facility] Method Time Signature Color Urine Light Yellow [facility] Appearance Urine Clear [facility] Glucose Urine Negative NEG mg/dL [facility] Bilirubin Urine Negative NEG [facility] Ketones Urine Negative NEG mg/dL [facility] Specific [place] 1.011 1.003 - [facility] Urine 1.035 [facility] Blood Urine Negative NEG [facility] pH Urine 5.5 5.0 - 7.0 [facility] pH [facility] Protein Albumin Negative NEG mg/dL [facility] Urine [facility] Urobilinogen Normal 0.0 - 2.0 [facility] mg/dL mg/dL [facility] Nitrite Urine Negative NEG [facility] Leukocyte Negative NEG [facility] Esterase Urine [facility] Source Midstream [facility] Urine [facility] WBC Urine <1 0 - 2 [facility] /HPF [facility] RBC Urine 1 0 - 2 [facility] /HPF [facility] Bacteria Urine Few (A) NEG /HPF [facility] Squamous 1 0 - 1 [facility] Epithelial /HPF /HPF [facility] Mucous Urine Present (A) NEG /LPF [facility] Specimen Anatomical Collection Method Collection Time Receive d Time (Source) Location / / Volume Laterality Urine specimen 01/18/2015 7:00 AM 015 7:14 (specimen) CDT AM CDT Mehreen Johnston MD PhD LAB - URINE ORDERABLES Performing Organization Address City/State/ZIP Code Phon e Number [facility] [address] TSH - Reflex to FT4 (01/07/2015 5:07 PM CDT) athologist Signature TSH 1.32 0.40 - 4.00 [facility] mU/L [facility] Comment: Effective 05/02/2014, the reference range for this assay has changed to reflect new instrumentation/methodology. Specimen Anatomical Collection Method Collection Time Receive d Time (Source) Location / / Volume Laterality Blood specimen 01/07/2015 5:07 PM 015 5:10 (specimen) CDT PM CDT Mehreen Johnston MD PhD LAB - BLOOD ORDERABLES Performing Organization Address City/[facility]/ZIP Code Phon e Number [facility] [address] [place] [phone] [place] [address] documented in this encounter Visit Diagnoses Diagnosis Routine general medical examination at a health care facility - Primary External hemorrhoids External hemorrhoids without mention of complication Vaginal dryness Other specified symptom associated with female genital organs Atrophic vaginitis Postmenopausal atrophic vaginitis Seasonal allergies Allergic rhinitis, cause unspecified Proteinuria Disorder of bone and cartilage, unspecif ied documented in this encounter Care Teams Copying Machine Repairer Relationship Specialty Start Date End Date Mehreen Johnston MD PhD PCP - General Family Practice 11/27/13 03/25/15 documented as of this encounter
--- OUTSIDE RECORDS SUMMARY | 2022-07-30 20:10 | XMS_ITS | Encounter Summary ---
:1945 Author Organization [place] Address [address] [place] [address]. [place] [address] Care Team Providers Name Role Phone Mehreen Johnston MD PhD Primary Care Provider [phone] Reason for Visit Reason Comments Consult possible sinus infection Encounter Details Date Type Department Care Team Description 03/14/2015 Office Visit Ear, Nose and Throat Mayur Brewer MD Chronic rhinitis (Primary Dx); Clinic [address] [facility] Nasal obstruction 8th Floor, Clinic 8A [facility] 396 [place], [place] Building [address] [place] [address] [facility] 88 (Work) [place] [address] Social History Tobacco Use Types [...] information: 1. To schedule an appointment call [phone], option 1 2. To talk to the bottom saw operator call [phone], option 3 3. If you need to speak to Margot or get a message to your doctor on a Wednesday, call the sleeve setter lockstitch documented in this encounter Progress Notes Honey [...] (ASTELIN) 137 MCG/SPRAY nasal spray Both Nostrils [place] 1-2 sprays into both nostrils 2 times [...] Internal Medicine LogMargot sadler MD [address] [address] (Wo rk) documented as of this encounter Visit Diagnoses Diagnosis Chronic rhinitis - Primary Nasal obstruction Other diseases of nasal cavity and sinus es documented in this encounter Care Teams Tub Mender Relationship Specialty Start Date End Date Mehreen Johnston MD PhD PCP - General Family Practice 11/27/13 03/25/15 documented as of this encounter
--- OUTSIDE RECORDS SUMMARY | 2022-07-30 20:10 | XMS_ITS | Encounter Summary ---
:1945 Author Organization [place] Address [address] [place] [address]. [place] [address] Care Team Providers Name Role Phone Mehreen Johnston MD PhD Primary Care Provider [phone] Reason for Visit Reason Comments RECHECK EMBX Encounter Details Date Type Department Care Team Description 12/25/2013 [facility] Postmenop ausal bleeding (Primary Dx); [facility] MD Luke PhD Seasonal allergies; [address] Vaginal dryness [facility] PROFESSIONAL [facility] [address] [facility] [address] [facility] 88 [place], [place] [address] (Fax) [phone] Social History Tobacco Use Types Packs/Day Years [...] NOT dairy, for maximum iron absorption. CALL [phone] to report: * Bleeding heavier than normal [...] mucosa thin and no rugae. Bartholin's, Urethra, Dousman's glands are normal. Cervix pale and stenotic [...] 4:00 PM CDT >> Addison Martinez LPN [facility] Dec 25, 2013 4:01 PM Patient presents with: RECHECK - EMBX documented in this encounter Plan of Treatment Upcoming Encounters Date Type Specialty Care Team Description 09/10/2022 Office Visit Internal Medicine Margot Branham MD [address] [address] (Wo rk) documented as of this encounter [...] Component Value Ref Test Analysis Performed At [facility] MyWave Range Method Time Signature Copath Report Patient Name: IMELDA GARCIA MR#: [id number] Specimen #: [id number] Collected: 12/25/2013 Received: 12/26/2013 Reported: 12/28/2013 14:24 [...] Microscopic examination is performed CPT Codes: A: 11992-EY9 TESTING LAB LOCATION: [facility], [address] ?? [id number] COLLECTION SITE: Client: [facility] Location: [facility] (B) Specimen Anatomical Collection Method Collection Time Receive d Time (Source) Location / / Volume Laterality 12/25/2013 4:50 PM 4 8:42 CDT AM CDT Narrative This result has an attachment that is no t available. Mehreen Johnston MD PhD [facility] Performing Organization Address City/State/ZIP Code Phon e Number COPATH documented in this encounter Visit Diagnoses Diagnosis Postmenopausal bleeding - Primary Seasonal allergies Allergic rhinitis, cause unspecified Vaginal dryness Other specified symptom associated with female genital organs documented in this encounter Care Teams Last Remodeler Repairer Relationship Specialty Start Date End Date Mehreen Johnston MD PhD PCP - General Family Practice 11/27/13 03/25/15 documented as of this encounter
--- OUTSIDE RECORDS SUMMARY | 2022-07-30 20:10 | XMS_ITS | Encounter Summary ---
:1945 Author Organization [place] Address [address] [place] [address]. [place] [address] Care Team Providers Name Role Phone Mehreen Johnston MD PhD Primary Care Provider [phone] Encounter Details Date Type Department Care Team Description 01/15/2015 Orders Only [facility] Anh Costa, Hypertension (Primary Physicians Heart ORE PUNCHER PARACHUTE/COMBATANT DIVER OFFICER Dx) [facility] 4th Floor, Clinic [address] [place] [phone] Social History Tobacco Use Types Packs/Day Years [...] Office Visit Internal Medicine LogeaMargot man MD [address] [place] [address] (Wo rk) documented as of this encounter Visit Diagnoses Diagnosis Hypertension - Primary Unspecified essential hypertension documented in this encounter Care Teams Caterer Helper Relationship Specialty Start Date End Date Mehreen Johnston MD PhD PCP - General Family Practice 11/27/13 03/25/15 documented as of this encounter
--- OUTSIDE RECORDS SUMMARY | 2022-07-30 20:10 | XMS_ITS | Encounter Summary ---
:1945 Author Organization [place] Address [address] [place] [address]. [place] [address] Care Team Providers Name Role Phone Mehreen Johnston MD PhD Primary Care Provider [phone] Encounter Details Date Type Department Care Team Description 12/31/2014 Radiant Appointment [facility] Breast [facility], Other screening Center Imaging MD Lisseth mammogram [address] [place] [address] [place] [address] 2nd Floor ALYSSA [address] [place] [phone] [place] [address] [phone] Social History Tobacco Use Types Packs/Day Years [...] Internal Medicine Margot Branham MD [address] [address] (Wo rk) documented as of [...] mammogram documented in this encounter Care Teams Senior Interior Designer Relationship Specialty Start Date End Date Mehreen Johnston MD PhD PCP - General Family Practice 11/27/13 03/25/15 documented as of this encounter
--- OUTSIDE RECORDS SUMMARY | 2022-07-30 20:10 | XMS_ITS | Encounter Summary ---
:1945 Author Organization [place] Address [address] [place] [address]. [place] [address] Care Team Providers Name Role Phone Mehreen Johnston MD PhD Primary Care Provider [phone] Reason for Visit Audiology - Closed Specialty Diagnoses / Procedures Referred By Contact Refer red To Contact Audiology Diagnoses [place] (hard of hearing), unspecified laterality [address] [address] Phone: Fax: Referral ID Status Reason Start Date Expiration Date Visits V isits Requested Authorized [facility] Closed 01/08/2015 10/03/2015 365 365 ([id number]) Encounter Details Date Type Department Care Team Description 03/14/2015 Office Visit [facility] [employer] Honey Brewer MD [address] [facility] [address] [place] [address] [place] (hard of Clinic Audiology Latanya Quintana, AuD [address] [facility] [place] [address] hearing), unspecified [place] laterality (Primary [address] Dx) [facility] 283 8th Floor clinic 8B [facility] [place] [address] Social History Tobacco Use Types [...] in thresholds since last audiogram 12/10/11. Speech hide tanner thresholds and pure-tone averages were in agreement, [...] discussed with patient. Please call me at [phone] if there are questions regarding these results or recommendations. Rudy Covarrubias Car Dealer [place] License #[id number] documented in this encounter Plan of Treatment Upcoming Encounters Date Type Specialty Care Team Description 09/10/2022 Office Visit Internal Medicine Margot Branham MD [address] [place] [address] (Wo rk) documented as of this [...] documented in this encounter Visit Diagnoses Diagnosis [place] (hard of hearing), unspecified later ality - Primary documented in this encounter Care Teams Packaging Mechanic Relationship Specialty Start Date End Date Mehreen Johnston MD PhD PCP - General Family Practice 11/27/13 03/25/15 documented as of this encounter
--- OUTSIDE RECORDS SUMMARY | 2022-07-30 20:10 | XMS_ITS | Encounter Summary ---
:1945 Author Organization [place] Address [address] [facility] [place] [address] Care Team Providers Name Role Phone Mehreen Johnston MD PhD Primary Care Provider [phone] Encounter Details Date Type Department Care Team Description 02/04/[address] [facility] Women's Mehreen Johnston [facility] PhD [place] PROFESSION AL BLDG 909 [facility] 3RD FLR,ALYSSA 300 [place] [address] [address] [facility] [place], [place] [address] Social History Tobacco Use Types [...] Visit Internal Medicine Margot Branham MD 909 [facility] 4TH [place] [address] (Wo rk) documented as of this encounter Visit Diagnoses Not on filedocumented in this encounter Care Teams Scrap Wheeler Relationship Specialty Start Date End Date Mehreen Johnston MD PhD PCP - General Family Practice 11/27/13 03/25/15 documented as of this encounter
--- OUTSIDE RECORDS SUMMARY | 2022-07-30 20:10 | XMS_ITS | Encounter Summary ---
:1945 Author Organization [place] Address [facility] [place] [address] Care Team Providers Name Role Phone Mehreen Johnston MD PhD Primary Care Provider [phone] Reason for Visit Reason Onset Date Comments Orders 01/09/2015 Encounter Details Date Type Department Care Team Description 01/09/2015 Telephone [facility] Women's Clinic Nurse, U Whs Orders [place] [address] [facility] Profession al Bldg [facility] 88 3rd Flr,[place] [address] [place], [place] [phone] Social History Tobacco Use [...] Visit Internal Medicine Margot Branham MD [address] [place] [address] (Wo rk) documented as of this encounter Visit Diagnoses Not on filedocumented in this encounter Care Teams Bar Useful Or Busser Relationship Specialty Start Date End Date Mehreen Johnston MD PhD PCP - General Family Practice 11/27/13 03/25/15 documented as of this encounter
--- OUTSIDE RECORDS SUMMARY | 2022-07-30 20:10 | XMS_ITS | Encounter Summary ---
:1945 Author Organization [place] Address [address] [place] [address]. [place] [address] Care Team Providers Name Role Phone Mehreen Johnston MD PhD Primary Care Provider [phone] Reason for Visit Reason Comments Urgent Care Pharyngitis c/o sore throat,fever,cough and nasal congestion for 4 days Encounter Details Date Type Department Care Team Description 09/23/2014 Office Visit [facility] Kristian Collazo M D Acute sinusitis treated with antibiotics in the past 60 days (Primary Dx); [facility] [place] [address] Hospit[facility] pharyngitis; [facility] Acute bronchitis with coexisting conditi on requiring prophylactic treatment; [address] [place] [address] [place], [place] [phone] (Work) [phone] Social History Tobacco Use Types Packs/Day Years [...] Comments Blood Pressure 141/72 09/23/2014 11:25 AM GOLF COURSE STARTER Pulse 83 09/23/2014 11:25 AM GOLF COURSE STARTER Temperature 37.5 ??C (99.5 ??F) 09/23/2014 11:25 AM GOLF COURSE STARTER Respiratory Rate - - Oxygen Saturation 97% 09/23/2014 11:25 AM GOLF COURSE STARTER Inhaled Oxygen Concentration - - Weight 81.6 kg (180 lb) 09/23/2014 11:25 AM GOLF COURSE STARTER Height 170.2 cm (5' 7) 09/23/2014 11:25 AM GOLF COURSE STARTER Body Mass Index 28.19 09/23/2014 11:25 AM GOLF COURSE STARTER documented in this encounter Patient Instructions Patient [...] help loosen secretions in the lungs. ?? Sjjd-zmc-znmaqee cough medicines that contain ???dextromethorphan?? (such as [...] ear pain or a stiff neck ?? 8010-2521 [place] [address]. All rights reserved. This information is not [...] a towel soaked in hot water. Or, regulator inspector the shower and direct the hot spray onto your face. This is a good way to inhale warm water vapor and get heat on your face at the same time. (Cover your mouth and nose with your hands so you can still breathe as you do this.) ?? Use a vaporizer with products such as [employer] Group[employer] (contains menthol) at night. Suck on peppermint, menthol or eucalyptus hard candies during the day. ?? An expectorant containing guaifenesin (such as Robitussin), helps to thin the mucus and promote drainage from the sinuses. ?? Gbcy-ovv-guivcdw decongestants may be used unless a similar [...] by your healthcare provider ?? Seizure ?? 4410-5710 Mary[facility] Barillas[facility], [address] [place] [address], [place] [address]. All rights reserved. This information is not intended as a substitute for professional medical care. Always follow your healthcare professional's instructions. COURSE STARTER documented in this encounter Progress Notes Kristian [...] ??? azelastine (ASTELIN) 137 MCG/SPRAY nasal spray [place] 1-2 sprays into both nostrils 2 times [...] Collazo MD September 23, 2014 4:27 PM COURSE STARTER documented in this encounter Nursing Notes María [...] completed using cuff size: marti Torres MA COURSE STARTER documented in this encounter Plan of Treatment Upcoming Encounters Date Type Specialty Care Team Description 09/10/2022 Office Visit Internal Medicine Margot Branham MD [address] [address] (Wo rk) documented as of this encounter Procedures Procedure Name Priority Date/Time Associated Diagnosis Comme nts RAPID STREP SCREEN Routine 09/23/2014 11:30 AM Acute Pharyngit is Results for this THROAT SWAB GOLF COURSE STARTER procedure are i n the results section. BETA HEMOLYTIC Routine 09/23/2014 11:30 AM Acute Pharyngitis R esults for this STREP GROUP A GOLF COURSE STARTER procedure are in CULTURE the results section. documented in this encounter Results Beta strep group A culture (09/23/2014 11:30 AM GOLF COURSE STARTER) Component Value Ref Test Analysis Performed At [facility] gist Range Method Time Signature Specimen Throat [facility] Culture Micro No Beta UTICA Streptococcus CLINICS [facility] Micro Report FINAL 09/25/2014 [facility] Specimen Anatomical Collection Method Collection Time Receive d Time (Source) Location / / Volume Laterality Specimen from 09/23/2014 11:30 09/23/2014 throat AM GOLF COURSE STARTER 11:42 AM GOLF COURSE STARTER (specimen) Kristian Collazo MD LAB - MICRO GENERAL ORDERABL ES Performing Organization Address City/[facility]/ZIP Code Phon e Number [facility] [address] [place] [address] [place] Strep, Rapid Screen (09/23/2014 11:30 AM GOLF COURSE STARTER) Component Value Ref Test Analysis Performed At [facility] gist Range Method Time Signature Specimen Throat [facility] Rapid Strep A NEGATIVE: No Group A strepto coccal antigen detected by immunoassay, await UTICA Screen culture report. [facility] Micro Report FINAL 09/23/2014 [facility] Specimen Anatomical Collection Method Collection Time Receive d Time (Source) Location / / Volume Laterality Specimen from 09/23/2014 11:30 09/23/2014 throat AM GOLF COURSE STARTER 11:41 AM GOLF COURSE STARTER (specimen) Kristian Collazo MD LAB - MICRO GENERAL ORDERABL ES Performing Organization Address City/[facility]/ZIP Code Phon e Number [place] [address] [place] [address] LEONARDA documented in this encounter Visit Diagnoses Diagnosis Acute sinusitis treated with antibiotics in the past 60 days - Primary Acute sinusitis, unspecified Acute pharyngitis Acute bronchitis with coexisting conditi on requiring prophylactic treatment Acute bronchitis Cough documented in this encounter Care Teams Assembler Utility Buildings Relationship Specialty Start Date End Date Mehreen Johnston MD PhD PCP - General Family Practice 11/27/13 03/25/15 documented as of this encounter
--- OUTSIDE RECORDS SUMMARY | 2022-07-30 20:11 | XMS_ITS | Encounter Summary ---
:1945 Author Organization [place] Address [address] [place] [address]. [place] [address] Care Team Providers Name Role Phone Unavailable Primary Care Provider Unavailable Encounter Details Date Type Department Care Team Description 11/20/2013 Radiant Appointment [facility] Osteopenia [facility] 1st Floor, Clinic 1D [place], [place] [address] Social History Tobacco Use Types [...] Office Visit Internal Medicine LogMargot sadler MD [address] [place] [address] (Wo rk) documented as of this encounter Procedures Procedure Name Priority Date/Time Associated Diagnosis Comme nts DX HIP/PELVIS/SPINE Routine 11/20/2013 7:51 AM Osteopenia Re sults for this REGIONAL PLANNER procedure are i n the results section. documented in this encounter Results Dexa hip/pelvis/spine (11/20/2013 7:51 AM REGIONAL PLANNER) Anatomical Region Laterality Modality Dexa Computed Radiography [...] (including testosterone levels - males). Principal result combustion engineer: Buffy Chandler MD, CCD mailer apprentice Division of Rheumatic and Autoimmune Dis eases Addendum by Yimi Chandler MD on 11/20 6:00 PM REGIONAL PLANNER Table formatting from the original resul t was not included. [facility] [address] [place] [address] [phone], [place] [address] Phone: ?? Fax: FINAL Patient name: ?? YIMI GARCIA ([id number] ) Patient demographics: 67.2 year old Whit e Female of 66.8 in. height and 180.0 lbs. weight Ordering provider: BLADE JOHNSTON History: ??POSTMENOPAUSAL status, right hip replacement, finger and thumb fractures as recently as age 22 Current treatments: Vitamin D, Calcium, Previous treatments: hormone replacement Scan: ??DXA exam ([id number] ): Appnique are expressor software Exam date: ??11/20/2013 Comparison: ?? 08/31/2012, 11/07/2009, [...] to you and your patient. Principal result combustion engineer: Buffy Chandler MD, CCD mailer apprentice Division of Rheumatic and Autoimmune Dis eases References: 1. ISCD position statements: ??www.iscd. org ??(includes the report of the 2006 ??Position Development Conference) 2. LSC = least significant changes at [facility] AP spine = ??0.032 g/cm2 [...] was not scanned Narrative 11/20/2013 5:58 PM REGIONAL PLANNER TO VIEW FORMATTED RESULTS WITH TABLES, GO TO PATIENT CHART > IMAGING TAB > DOUBLE CLICK ON DXA Blade Johnston MD PhD IMG DEXA ORDERABLES documented in this encounter Visit Diagnoses Diagnosis Osteopenia Disorder of bone and cartilage, unspecif ied documented in this encounter
--- OUTSIDE RECORDS SUMMARY | 2022-07-30 20:11 | XMS_ITS | Encounter Summary ---
:1945 Author Organization [place] Address [facility] [place] [address] Care Team Providers Name Role Phone Unavailable Primary Care Provider Unavailable Reason for Visit Reason Onset Date Comments Refill Request 05/24/2013 Encounter Details Date Type Department Care Team Description 05/24/2013 Refill [facility] Women's Torkel son, MD Lisseth Refill Request Clinic [place] [address] [place] [address] [place] [address] [place] Professional Bldg [facility] 3rd Flr,[place] [address] [place] [phone] Social History Tobacco Use Types Packs/Day [...] Visit Internal Medicine LogMargot sadler MD [address] [address] (Wo rk) documented as of this encounter Visit Diagnoses Diagnosis Seasonal allergies - Primary Allergic rhinitis, cause unspecified documented in this encounter
--- OUTSIDE RECORDS SUMMARY | 2022-07-30 20:11 | XMS_ITS | Encounter Summary ---
:1945 Author Organization [place] Address [address] [facility] [place] [address] Care Team Providers Name Role Phone Unavailable Primary Care Provider Unavailable Reason for Visit Reason Onset Date Comments Orders 10/20/2013 DEXA Encounter Details Date Type Department Care Team Description 10/20/2013 Telephone [facility] Women's Clinic Nurse, Alyssa walker [facility] Orders (DEXA) [place] [address] [facility] 88 3rd Flr,[facility] 300 [place], [place] [address] Social History Tobacco Use Types Packs/Day [...] need to call the Imaging Center in [facility] to schedule that appointment. I did tell her that if she does have the DEXA on the day of her appt the results most likely will not be available for Dr. Johnston. Most likely she will need to make a separate appt to discuss the findings. Ramona verbalized understanding of the information. RN AGENT Telephone Encounter - Jorge Garg RN - [...] her toschedule. Pt can be reached at [phone] Thank you, cristi RN AGENT documented in this encounter Plan of Treatment Upcoming Encounters Date Type Specialty Care Team Description 09/10/2022 Office Visit Internal Medicine LogeaMargot man MD [address] [address] (Wo rk) documented as of this encounter Visit Diagnoses Diagnosis Osteopenia - Primary Disorder of bone and cartilage, unspecif ied documented in this encounter
--- OUTSIDE RECORDS SUMMARY | 2022-07-30 20:11 | XMS_ITS | Encounter Summary ---
:1945 Author Organization [place] Address [address] [place] [address]. [place] [address] Care Team Providers Name Role Phone Unavailable Primary Care Provider Unavailable Reason for Visit Reason Onset Date Comments Previsit 12/13/2012 Encounter Details Date Type Department Care Team Description 12/13/2012 PRE VISIT [facility] Carlota Landeros MD Previsit [place] [phone] [place] [address] [address] [place] [address] [place] [address] [place] [address] [place], [place] [address] [phone] Social History Tobacco Use Types Packs/Day Years [...] patient has not been seen in the [facility] in the last 6 months) Jena Matias CMA documented in this encounter Plan of Treatment Upcoming Encounters Date Type Specialty Care Team Description 09/10/2022 Office Visit Internal Medicine Logeais, Margot, MD [address] [address] (Wo rk) documented as of this encounter Visit Diagnoses Not on filedocumented in this encounter
--- OUTSIDE RECORDS SUMMARY | 2022-07-30 20:11 | XMS_ITS | Encounter Summary ---
:1945 Author Organization [place] Address [address] [place] [address]. [place] [address] Care Team Providers Name Role Phone Unavailable Primary Care Provider Unavailable Reason for Visit Reason Onset Date Comments Appointment 06/27/2013 Needs to be reschedu led Encounter Details Date Type Department Care Team Description 06/27/2013 Telephone [facility] Carlota Landeros, Appo intment (Needs to Clinic Evette Combs MD be rescheduled) [id number] [place] [address] [place], [place] [address] [place], [place] [phone] (Wo rk) Social History Tobacco Use Types [...] Office Visit Internal Medicine LogeaisMargot MD [address] 886[address] (Wo rk) documented as of this encounter Visit Diagnoses Not on filedocumented in this encounter
--- OUTSIDE RECORDS SUMMARY | 2022-07-30 20:11 | XMS_ITS | Encounter Summary ---
:1945 Author Organization [place] Address [facility] [place] [address] Care Team Providers Name Role Phone Unavailable Primary Care Provider Unavailable Reason for Visit Reason Onset Date Comments Medication Request 12/12/2012 Encounter Details Date Type Department Care Team Description 12/12/2012 Telephone [facility] Women's Nurse, p Whs Medication Request Clinic [place] [address] [facility] Professional Bldg [facility] 88 3rd Flr,[place] [place] [address] [phone] Social History Tobacco Use Types Packs/Day [...] Visit Internal Medicine Margot Branham MD [address] [place] [address]45115 (Wo rk) documented as of this encounter Visit Diagnoses Not on filedocumented in this encounter
--- OUTSIDE RECORDS SUMMARY | 2022-07-30 20:11 | XMS_ITS | Encounter Summary ---
:1945 Author Organization [place] Address [address] [place] [address]. [place] [address] Care Team Providers Name Role Phone Unavailable Primary Care Provider Unavailable Encounter Details Date Type Department Care Team Description 01/01/2013 Results Only [facility] AND Francisco Landeros MD [facility] [address] [place] [facility] 100 [place] [address] 4TH FLOOR, [address] 420 [facility], (Fax ) [place] [phone] Social History Tobacco Use Types Packs/Day [...] Branham MD 909 [facility] 4TH [place], [place] [address] (Wo rk) Scheduled Orders Name Type Priority Associated Diagnoses Order S chedule XR Percut/Peripheral Imaging Ordered : 01/01/2013 Urology Nrv Eval documented as of this encounter Visit Diagnoses Not on filedocumented in this encounter
--- OUTSIDE RECORDS SUMMARY | 2022-07-30 20:11 | XMS_ITS | Encounter Summary ---
:1945 Author Organization [place] Address [facility] [place] [address] Care Team Providers Name Role Phone Mehreen Johnston MD PhD Primary Care Provider [phone] Encounter Details Date Type Department Care Team Description 11/28/2013 Orders Only [facility] Mehreen Johnston Bacterial vaginosis [facility] MD Luke PhD (Primary Dx) [place] [address] [place] [address] [facility] [id number] [place] [address],[facility] [address] [facility] (Work) [facility] [phone] [place], [place] [address] (Fax) [phone] Social History Tobacco Use Types Packs/Day Years [...] Visit Internal Medicine Margot Branham MD [address] [address] (Wo rk) documented as of this encounter Visit Diagnoses Diagnosis Bacterial vaginosis - Primary Vaginitis and vulvovaginitis, unspecifie d documented in this encounter Care Teams Health And Human Performance Professor Relationship Specialty Start Date End Date Mehreen Johnston MD PhD PCP - General Family Practice 11/27/13 03/25/15 documented as of this encounter
--- OUTSIDE RECORDS SUMMARY | 2022-07-30 20:11 | XMS_ITS | Encounter Summary ---
:1945 Author Organization [place] Address [address] [place] [address]. [place] [address] Care Team Providers Name Role Phone Unavailable Primary Care Provider Unavailable Encounter Details Date Type Department Care Team Description 11/20/2013 [facility] MD Luke PhD Zhang-Wangensteen [address] [place] [address] 1st Floor, Clinic 1D [address] [place], [place] [address] [phone] Social History Tobacco Use Types Packs/Day Years [...] Visit Internal Medicine LogeaMargot man MD [address] [place] [phone] (Wo rk) documented as of this encounter Procedures Procedure Name Priority Date/Time Associated Diagnosis Comme nts DX Routine 11/20/2013 7:51 AM Osteopenia Results f or this WRIST/HEEL/RADIUS RESIDENTIAL SERVICE TECHNICIAN procedure are in the results section. documented in this encounter Results DX Wrist Heel Radius (11/20/2013 7:51 AM RESIDENTIAL SERVICE TECHNICIAN) Anatomical Region Laterality Modality Dexa Computed Radiography Specimen (Source) Anatomical Location Collection Method / Collectio n Time Received Time / Laterality Volume Addenda Addendum by Yimi Chandler MD on 11/20 5:59 PM RESIDENTIAL SERVICE TECHNICIAN ?? [facility] [address] [place] [address] [phone], [place] [address] Phone: ?? Fax: FINAL Patient name: ?? YIMI GARCIA ([id number] ) Patient demographics: 67.2 year old Whit e Female of 66.8 in. height and 180.0 lbs. weight Ordering provider: MEHREEN JOHNSTON History: ??POSTMENOPAUSAL status, right hip replacement, finger and thumb fractures as recently as age 22 Current treatments: Vitamin D, Calcium, Previous treatments: hormone replacement Scan: ??DXA exam ( [id number] ): Q ChipigMobilyTrip Exam date: ??11/20/2013 Comparison: ?? 08/31/2012, 11/07/2009, 0 05/02/2008 Wrist results are reported and filed und er accession # ??[id number] Principal result translator/interpreter: Buffy Chandler MD, CCD manager metrology Division of Rheumatic and Autoimmune Dis eases Narrative 11/20/2013 5:58 PM RESIDENTIAL SERVICE TECHNICIAN TO VIEW FORMATTED RESULTS WITH TABLES, GO [...]
--- OUTSIDE RECORDS SUMMARY | 2022-07-30 20:11 | XMS_ITS | Encounter Summary ---
:1945 Author Organization [place] Address [address] [place] [address]. [place] [address] Care Team Providers Name Role Phone Mehreen Johnston MD PhD Primary Care Provider [phone] Encounter Details Date Type Department Care Team Description 11/27/[address] [facility] Mehreen Johnston Ot her screening [facility] MD Luke PhD mammogram [address], [address] [place] [address] [phone] Social History Tobacco Use Types Packs/Day Years [...] Visit Internal Medicine Margot Branham MD [address] [address] (Wo rk) documented as of this encounter Procedures Procedure Name Priority Date/Time Associated Diagnosis Comme nts MA SCREENING Routine 11/27/2013 11:35 AM Other screening Resul ts for this DIGITAL BILATERAL POOL CLEANER mammogram procedure are in the results section. documented in this encounter Results MA Screening Digital Bilateral (11/27/2013 11:35 AM POOL CLEANER) Anatomical Region Laterality Modality Breast Bilateral Mammography Specimen (Source) Anatomical Location Collection Method / Collectio n Time Received Time / Laterality Volume Impressions 11/28/2013 10:49 AM POOL CLEANER IMPRESSION: BI-RADS CATEGORY: 2 - Benign Finding(s). RECOMMENDED FOLLOW-UP: Annual Mammograph y The patient will be notified of the resu lts. I have personally reviewed the examinati on and initial interpretation and I agree with the findings. SIERRA KHAN MD Narrative 11/28/2013 10:49 AM POOL CLEANER Examination: Bilateral digital screening mammography with computer [...] mammogram documented in this encounter Care Teams Jewelry Estimator Relationship Specialty Start Date End Date Mehreen Johnston MD PhD PCP - General Family Practice 11/27/13 03/25/15 documented as of this encounter
--- OUTSIDE RECORDS SUMMARY | 2022-07-30 20:11 | XMS_ITS | Encounter Summary ---
:1945 Author Organization [place] Address [address] [place] [address] Care Team Providers Name Role Phone Unavailable Primary Care Provider Unavailable Reason for Visit Reason Onset Date Comments Refill Request 09/26/2013 Estring Encounter Details Date Type Department Care Team Description 09/26/2013 Refill [facility] Women's Nurse, Ump Whs Refill Request (Estring) Clinic [place] [address] [place] [address] [facility] [address] [facility] 300 [place], [place] [phone] Social History Tobacco Use Types Packs/Day Years Used Date Smoking Tobacco: Never Smokeless Tobacco: Never Alcohol Use Standard Drinks/Week Comments No 0 (1 standard drink = 0.6 oz pure alcoho l) Sex Assigned at Date Recorded Female 12/20/2018 4:10 PM CDT documented as of this encounter Miscellaneous Notes Telephone Encounter - Parul Zeng RN - 09/26/2013 9:13 AM RAILROAD CAR LETTERER Last well woman exam with Dr. Vang on 08/16/2012. Taking Estring for atrophic vaginitis. Sent refill x 1. Patient needs follow up appointment before further refills can be given. Left VM for patient reminding to schedule for Well Woman exam. ROAD CAR LETTERER documented in this encounter Plan of Treatment Upcoming Encounters Date Type Specialty Care Team Description 09/10/2022 Office Visit Internal Medicine LogeaisMargot MD 909 [facility] 4TH [place], [place] [address] (Wo rk) documented as of this encounter Visit Diagnoses Diagnosis Vaginal dryness - Primary Other specified symptom associated with female genital organs documented in this encounter
--- OUTSIDE RECORDS SUMMARY | 2022-07-30 20:11 | XMS_ITS | Encounter Summary ---
:1945 Author Organization [place] Address [address] [place] [address]. [place] [address] Care Team Providers Name Role Phone Mehreen Johnston MD PhD Primary Care Provider [phone] Reason for Referral - Closed Specialty Diagnoses / Procedures Referred By Contact Refer red To Contact Diagnoses Varicose veins of lower extremities with other complications Mehreen Johnston MD Procedures [facility] PhD [address] [place] [phone] Referral ID Status Reason Start Date Expiration Date Visits Requ ested Visits Authorized [id number] Closed 11/27/2013 05/26/2014 1 1 TRUCTION SKILLS TEACHER Reason for Visit Reason Comments Physical Encounter Details Date Type Department Care Team Description 11/27/2013 Office Visit [facility] Mehreen Johnston ynecological examination (Primary Dx); [facility] MD Luke PhD Recurrent herpes simplex; [address] Seasonal allergies; [facility] [place]AL [place], [place] Va ginal dryness; BLD[facility] [address]461 FHx: colon cancer; 3RD FLR,[place] 300 External hemorrhoids; [address] (Work) Disorder of bone and cartilage, unspecif ied; [facility] 88 Asymptomatic varicose veins, bilateral; [place], [place] [address] (Fax) Postmenopausal bleeding; [phone] Varicose veins of lower extremities with other [...] Comments Blood Pressure 131/75 11/27/2013 1:29 PM CONSTRUCTION SKILLS TEACHER Pulse 70 11/27/2013 1:29 PM CONSTRUCTION SKILLS TEACHER Temperature - - Respiratory Rate - - Oxygen Saturation - - Inhaled Oxygen Concentration - - Weight 83.2 kg (183 lb 6.4 oz) 11/27/2013 1:29 PM CONSTRUCTION SKILLS TEACHER Height 168.9 cm (5' 6.5) 11/27/2013 1:29 PM CONSTRUCTION SKILLS TEACHER Body Mass Index 29.16 11/27/2013 1:29 PM CONSTRUCTION SKILLS TEACHER documented in this encounter Patient Instructions Patient InstructionsMehreen Johnston MD PhD - 11/27/2013 2:40 PM CONSTRUCTION SKILLS TEACHER Blood work today Schedule colonoscopy See me for osteoporosis appt - bring all calcium and vitamin D supplements Get pneumovax today Get transvaginal US for vaginal bleeding See ortho for hand nodule See breast center - Dr Vang - question of lump in breast Appointment with me in 1 month TRUCTION SKILLS TEACHER documented in this encounter Progress Notes Mehreen [...] 30 min/day Wants to go back to [facility] for cardiac risk eval this summer [...] ??? azelastine (ASTELIN) 137 MCG/SPRAY nasal spray [place]unn 1-2 sprays into both nostrils 2 times [...] ??? Heart attack Maternal Grandfather 82 of [place] ??? 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 Smoking [...] 1 son - - still working at [employer] - citizen of [place] as a second [...] hair distribution. Noenlargement of the [place] or [place] glands. Urethra and bladder are non-tender. Vagina [...] BREAST CENTER REFERRAL Mehreen Johnston MD, PhD TRUCTION SKILLS TEACHER documented in this encounter Nursing Notes 11/27/2013 1:30 PM CST >> Addison Martinez LPN Mon Nov 27, 2013 1:30 PM Patient presents with: Physical documented in this encounter Plan of Treatment Upcoming Encounters Date Type Specialty Care Team Description 09/10/2022 Office Visit Internal Medicine Margot Branham MD [address] [place] [phone] (Wo rk) documented as of this encounter Procedures Procedure Name Priority Date/Time Associated Diagnosis Comme nts VITAMIN D DEFICIENCY Routine 11/27/2013 3:51 PM Disorder of marissa ne and Results for this SCREENING CONSTRUCTION SKILLS TEACHER cartilage, procedure are i n unspecified the results section. HC CERV/VAG CANC Routine 11/27/2013 2:48 PM Routine gynecologi mega SCRN,PELV/BREAST CONSTRUCTION SKILLS TEACHER examination EXAM WET PREPARATION Routine 11/27/2013 2:30 PM Vaginal discharge R esults for this CONSTRUCTION SKILLS TEACHER procedure are i n the results section. documented in this encounter Results 25- [place]-Vitamin D (11/27/2013 3:51 PM CONSTRUCTION SKILLS TEACHER) athologist Signature Vitamin D 36 30 - 75 [facility] Deficiency ug/L [facility] screening Comment: Season, race, dietary intake, and treatm ent affect the concentration of 59-rgtmewq-Lavxmqf D. Values may decrea se during winter [...] questions, pl ease contact the laboratory at [phone]. Specimen Anatomical Collection Method Collection Time Receive d Time (Source) Location / / Volume Laterality Blood specimen 11/27/2013 3:51 PM 014 3:52 (specimen) CONSTRUCTION SKILLS TEACHER PM CONSTRUCTION SKILLS TEACHER Mehreen Johnston MD PhD LAB - BLOOD ORDERABLES Performing Organization Address City/State/ZIP Code Phon e Number [facility] [address] [place], [place] [id number] [place] [address] LABS (ABNORMAL) Wet prep (11/27/2013 2:30 PM CONSTRUCTION SKILLS TEACHER) [facility] gist Method Time Signature Specimen Vaginal Rectal [facility] Description [facility] Wet Prep Few PMNs seen [facility] No Trichomonas seen [facility] No yeast seen LAB Clue cells seen (A) Micro Report FINAL [facility] Status 11/27/2013 [facility] Specimen Anatomical Collection Method Collection Time Receive d Time (Source) Location / / Volume Laterality 11/27/2013 2:30 PM 4 3:22 CONSTRUCTION SKILLS TEACHER PM CONSTRUCTION SKILLS TEACHER Mehreen Johnston MD PhD LAB - MICRO GENERAL ORDERABL ES Performing Organization Address City/State/ZIP Code Phon e Number [facility] [address] [place] [address] [facility] LAB documented in this encounter Visit Diagnoses [...] breast documented in this encounter Care Teams Chief Estimator Relationship Specialty Start Date End Date Mehreen Johnston MD PhD PCP - General Family Practice 11/27/13 03/25/15 documented as of this encounter
--- OUTSIDE RECORDS SUMMARY | 2022-07-30 20:11 | XMS_ITS | Encounter Summary ---
:1945 Author Organization [place] Address [address] [facility] [place] [address] Care Team Providers Name Role Phone Unavailable Primary Care Provider Unavailable Reason for Visit Reason Onset Date Comments Medication Request 05/22/2013 Med for cold sores Encounter Details Date Type Department Care Team Description 05/22/2013 Telephone [facility] Women's Nurse, p Whs Medication Request (Med Clinic [place] for cold sores) [address] [facility] Professional Bldg [facility] [address] [place] [phone] Social History Tobacco Use Types Packs/Day Years [...] called in to her [facility] in [place]. She can be reached at [phone]. Thanks! [place]. Please DO NOT send this message and/or reply back to sender. Call Center Representatives DO NOT respond to messages. documented in this encounter Plan of Treatment Upcoming Encounters Date Type Specialty Care Team Description 09/10/2022 Office Visit Internal Medicine Margot Branham MD [address] [address] (Wo rk) documented as of this encounter Visit Diagnoses Diagnosis Seasonal allergies - Primary Allergic rhinitis, cause unspecified Recurrent herpes simplex Herpes simplex without mention of compli cation documented in this encounter
--- OUTSIDE RECORDS SUMMARY | 2022-07-30 20:11 | XMS_ITS | Encounter Summary ---
:1945 Author Organization [place] Address [address] [place] [address]. [place] [address] Care Team Providers Name Role Phone Unavailable Primary Care Provider Unavailable Reason for Visit Reason Comments RECHECK PT Encounter Details Date Type Department Care Team Description 03/16/2013 Office Visit [facility] Carlota Landeros Mixe d incontinence (Primary Dx); Clinic Evette Combs MD Urinary retention [address] [facility] 100 [address] [place], [place] [phone] [address] Social History Tobacco Use Types Packs/Day [...] Pdet 13 cm H2O; once moved to [facility] commode patient voided with Valsalva voiding [...] ml. 6. Left hemipelvis InterStim lead on assurance senior imaging. A/P: 67 year old female with [...] Visit Internal Medicine Margot Branham MD [address] [place] [phone] (Wo rk) documented as of this encounter Visit Diagnoses Diagnosis Mixed incontinence - Primary Mixed incontinence urge and stress (male )(female) Urinary retention Retention of urine, unspecified documented in this encounter
--- OUTSIDE RECORDS SUMMARY | 2022-07-30 20:11 | XMS_ITS | Encounter Summary ---
:1945 Author Organization [place] Address [address] [place] [address]. [place] [address] Care Team Providers Name Role Phone Unavailable Primary Care Provider Unavailable Reason for Visit Reason Onset Date Comments Other 06/13/2013 Reschedule appt Encounter Details Date Type Department Care Team Description 06/13/2013 Telephone [facility] Carlota Landeros O[place] r (Reschedule Clinic Evette Combs MD appt) [address] [place], [place] [address] [place], [place] [phone] [address] (Wo rk) Social History Tobacco Use [...] 09/10/2022 Office Visit Internal Medicine LogeaisMargot MD [address] [place] [phone] (Wo rk) documented as of this encounter Visit Diagnoses Not on filedocumented in this encounter
--- OUTSIDE RECORDS SUMMARY | 2022-07-30 20:11 | XMS_ITS | Encounter Summary ---
:1945 Author Organization [place] Address [address] [facility] [address] Care Team Providers Name Role Phone Mehreen Johnston MD PhD Primary Care Provider [phone] Reason for Visit Reason Onset Date Comments Patient Request 12/01/[address] Nicole delgado Encounter Details Date Type Department Care Team Description 12/01/2013 Telephone [facility] Women's Nurse, [facility] Patient Request (appt Clinic [place] with Dr. Vang) [address] [facility] Professional Bldg [facility] [address] [place] [phone] Social History Tobacco Use Types Packs/Day Years [...] [facility] Spoke with Yamileth and gave her this information. Due to work travel, sheis not available December 07. Dr. Johnston will fit her in for embx on 12/25. [facility], [place], agreed to call patient to schedule her with Dr. Vang on 12/06. Yamileth indicated understanding and agreed with plan, awaiting call from [facility]. IT OR LOANS OFFICER Telephone Encounter - Lisseth Vang MD - 12/01/2013 2:30 PM CST Of course - call the [facility] and get her scheduled. [phone] Just tell them I ok'd it. [place] IT OR LOANS OFFICER Telephone Encounter - Jaimie Herman RN - 12/01/2013 2:15 PM CST Forwarding to Dr. Vang to see if she can fit patient in on December 06 at [facility] for lump found on exam. IT OR LOANS OFFICER Telephone Encounter - Jaimie Herman RN - [...] is hoping someone can call her at [phone] (cell phone) ok to leave VM. There is nothing sooner at [place] or [facility]. Ptis not available 12/07-12/11. Thanks! -nf Please DO NOT send this message and/or reply back to sender. Call Center Representatives DO NOT respond to messages. IT OR LOANS OFFICER documented in this encounter Plan of Treatment Upcoming Encounters Date Type Specialty Care Team Description 09/10/2022 Office Visit Internal Medicine Logeais, MD Margot [address] [place] [phone] (Wo rk) documented as of this encounter Visit Diagnoses Not on filedocumented in this encounter Care Teams Brake Drum Molder Relationship Specialty Start Date End Date Mehreen Johnston MD PhD PCP - General Family Practice 11/27/13 03/25/15 documented as of this encounter
--- OUTSIDE RECORDS SUMMARY | 2022-07-30 20:12 | XMS_ITS | Encounter Summary ---
:1945 Author Organization [place] Address [address] [place] [address]. [place] [address] Care Team Providers Name Role Phone Unavailable Primary Care Provider Unavailable Reason for Visit Reason Onset Date Comments Previsit 11/07/2012 Encounter Details Date Type Department Care Team Description 11/07/2012 Telephone [facility] AND Francisco Landeros MD Previsit [facility] [address] [place] [address] [place] [address] [facility] 4TH FLOOR, [address] [facility], [facility] [address] [place], [place] [phone] Social History Tobacco Use Types Packs/Day Years Used Date Smoking Tobacco: Never Smokeless Tobacco: Never Alcohol Use Standard Drinks/Week Comments No 0 (1 standard drink = 0.6 oz pure alcoho l) Sex Assigned at Date Recorded Female 12/20/2018 4:10 PM CDT documented as of this encounter Miscellaneous Notes Telephone Encounter - Leticia Alcantar MA - 11/07/2012 1:11 PM PILLING MACHINE OPERATOR Patient coming in for 3 month follow up, ask ING MACHINE OPERATOR documented in this encounter Plan of Treatment Upcoming Encounters Date Type Specialty Care Team Description 09/10/2022 Office Visit Internal Medicine LogeaisMargot MD 9[address] [facility] 4TH [place], [place] [address] (Wo rk) documented as of this encounter Visit Diagnoses Not on filedocumented in this encounter
--- OUTSIDE RECORDS SUMMARY | 2022-07-30 20:12 | XMS_ITS | Encounter Summary ---
:1945 Author Organization [place] Address [address] [place] [address]. [place] [address] Care Team Providers Name Role Phone Unavailable Primary Care Provider Unavailable Encounter Details Date Type Department Care Team Description 08/31/2012 Orders Only [facility] Osteopenia [facility] 1st Floor, Clinic 1D Mail Code [address] [place], [place] [address] Social History Tobacco Use Types Packs/Day Years Used Date Smoking Tobacco: Never Smokeless Tobacco: Never Alcohol Use Standard Drinks/Week Comments No 0 (1 standard drink = 0.6 oz pure alcoho l) Sex Assigned at Date Recorded Female 12/20/2018 4:10 PM CDT documented as of this encounter Miscellaneous Notes Initial Assessments - Abstract, Provider - 09/23/2012 10:41 AM CST L RIGGER documented in this encounter Plan of Treatment Upcoming Encounters Date Type Specialty Care Team Description 09/10/2022 Office Visit Internal Medicine LogeaisMargot MD [address] [place] [phone] (Wo rk) documented as of this encounter Procedures Procedure Name Priority Date/Time Associated Diagnosis Comme nts DX HIP/PELVIS/SPINE Routine 08/31/2012 12:54 PM Osteopenia R esults for this STEEL RIGGER procedure are i n the results section. documented in this encounter Results Dexa hip/pelvis/spine* (08/31/2012 12:54 PM STEEL RIGGER) Anatomical Region Laterality Modality Dexa Computed Radiography Specimen (Source) Anatomical Collection Method Collection Time Re ceived Time Location / / Volume Laterality 08/31/2012 12:54 PM STEEL RIGGER Narrative 09/06/2012 2:16 PM STEEL RIGGER SHANELL BAUM ??DR: ?? Your patient, YIMI GARCIA ([id number] ), completed a DXA exam ([id number] ) on a [employer] on 08/31/2012 . The following are the [...] ? Clinical correlation recommended. ? Principal result lang interpreter: Anh Ascencio MD, [facility] Division of Diabetes, Endocrinology and Metabolism [facility] [phone] ? * Procedure Note Anh Ascencio MD - 09/06/2012Forma tting of this note might be different from the original. SHANELL BAUM DR: Your patient, YIMI GARCIA ([id number] ), completed a DXA exam ([id number] ) on a [employer] on 08/31/2012 . The following are the [...] be considered. Clinical correlation recommended. Principal result lang interpreter: Anh Ascencio MD, CCD Division of Diabetes, Endocrinology and Metabolism [facility] [phone] * Shanell Baum MD IMG DEXA ORDERABLES documented in this encounter Visit Diagnoses Diagnosis Osteopenia Disorder of bone and cartilage, unspecif ied documented in this encounter
--- OUTSIDE RECORDS SUMMARY | 2022-07-30 20:12 | XMS_ITS | Encounter Summary ---
:1945 Author Organization [place] Address [address] [place] [address]. [place] [address] Care Team Providers Name Role Phone Unavailable Primary Care Provider Unavailable Encounter Details Date Type Department Care Team Description 04/08/2012 Orders Only Anh Mackay CARDIOVASCULAR SCREENING; [facility] [place] [facility] CLAUDIA Marsh CNP LDL G OAL LESS THAN 130 Heart (Primary Dx) [address] Floor, Clinic [address] [phone] Social History Tobacco Use Types Packs/Day Years [...] 09/10/2022 Office Visit Internal Medicine LogeaisMargot MD [address] [place] [address] [phone] (Wo rk) documented as of this encounter Visit Diagnoses Diagnosis CARDIOVASCULAR SCREENING; LDL GOAL LESS THAN 130 - Primary documented in this encounter
--- OUTSIDE RECORDS SUMMARY | 2022-07-30 20:12 | XMS_ITS | Encounter Summary ---
:1945 Author Organization [place] Address [address] [place] [address]. [place] [address] Care Team Providers Name Role Phone Unavailable Primary Care Provider Unavailable Encounter Details Date Type Department Care Team Description 04/12/2012 Office Visit Anh Mackay CARDIOVASCULAR [place] [facility] CLAUDIA Marsh CNP; LDL GOAL LESS Heart THAN 130 (Primary Dx) [facility] 4th Floor, Clinic [address]B [address] [phone] Social History Tobacco Use Types [...] 09/23/2009 Reason For Visit Patient here for [facility] early detection of atherosclerosis and CVD exam. [...] Team: Lisseth Vang MD as PCP - RASHEED [place] documented in this encounter Plan of Treatment Upcoming Encounters Date Type Specialty Care Team Description 09/10/2022 Office Visit Internal Medicine Margot Branham MD [address] [phone] (Wo rk) Scheduled Orders Name Type Priority [...] Component Value Ref Test Analysis Performed At [facility] Integromics Method Time Signature Creatinine 201 mg/dL [facility] Urine [facility] Albumin Urine <5 mg/L [facility] mg/L Urine Microalbumin lowest re portable value has been changed from 2 mg/L to 5 [facility]ITY mg/L due to a methodology change on January. [facility] Albumin Urine Unable to 0 - 25 [facility] mg/g Cr calculate mg/g Cr [facility] Specimen Anatomical Collection Method Collection Time Receive d Time (Source) Location / / Volume Laterality Urine specimen 04/12/2012 8:22 AM 012 8:23 (specimen) CDT AM CDT Anh Costa APRN PERSONAL DEVELOPMENT EDUCATOR LAB - URINE ORDERABLES Performing Organization Address City/State/ZIP Code Phon e Number [facility] [address] [place] [address] [facility] [place] Miscellaneous Test (04/12/2012 8:21 AM CDT) Component Value Ref Test Analysis Performed At [facility] Integromics Method Time Signature Result SEE NOTE [facility] (Note) UNIVERSITY Test name ?Result ?? Units ??RefIntvl [facility] LDL Particle Number by NMR ?[id number] [...] has not been fully established Performed at: [address] [address] Test Name NMR [facility] Send Outs [id number] [facility] Test [place] [facility] Send Outs PLASMA [facility] Specimen CAMPUS LABS Specimen Anatomical Collection Method Collection Time Receive d Time (Source) Location / / Volume Laterality 04/12/2012 8:21 AM 2 CDT 11:32 AM CDT Anh Costa APRN PERSONAL DEVELOPMENT EDUCATOR LAB - BLOOD ORDERABLES Performing Organization Address City/State/ZIP Code Phon e Number [facility] [address] [place], [place] [phone] [place] [address] LABS Glucose (04/12/2012 8:21 AM CDT) athologist Signature Glucose 94 60 - 99 [facility] mg/dL [facility] Specimen Anatomical Collection Method Collection Time Receive d Time (Source) Location / / Volume Laterality Blood specimen 04/12/2012 8:21 AM 012 8:22 (specimen) CDT AM CDT Anh Costa APRN, CNP LAB - BLOOD ORDERABLES Performing Organization Address [facility] Phon e Number [facility] [address] [place], [place] [phone] [place] [address] LABS CRP cardiac risk (04/12/2012 8:21 AM CDT) P athologist Signature CRP Cardiac 3.5 mg/L [facility] Risk [facility] Comment: Reference Values: Low Risk: ? <1.0 mg/L Average Risk: ? 1.0-3.0 mg/L High Risk: ?>3.0 mg/L Acute Inflammation: >8.0 mg/L Specimen Anatomical Collection Method Collection Time Receive d Time (Source) Location / / Volume Laterality Blood specimen 04/12/2012 8:21 AM 012 8:22 (specimen) CDT AM CDT Anh Costa APRN, CNP LAB - BLOOD ORDERABLES Performing Organization Address [facility] Phon e Number [phone] [place] [address] LABS N terminal pro BNP outpatient (04/12/2012 8:21 AM CDT) P athologist Signature N-Terminal Pro 122 0 - 125 [facility] Bnp pg/mL [facility] Comment: Reference range shown and results [...] (specimen) CDT AM CDT Anh Costa APRN PERSONAL DEVELOPMENT EDUCATOR LAB - BLOOD ORDERABLES Performing Organization Address City/[facility]/ZIP Code Phon e Number [facility] [address] [place] [address] [facility] (ABNORMAL) Lipid panel reflex to direct LDL (04/12/2012 8:21 AM CDT) P athologist Signature Cholesterol 242 (H) 0 - 200 [facility] mg/dL [facility] Comment: LDL Cholesterol is the primary guide to therapy. The NCEP recommends further evaluation of: patients with cholesterol greater than 200 mg/dL if additional risk facto rs are present, cholesterol greater than 240 mg/dL, triglycerides greater than 1 50 mg/dL, or HDL less than 40 mg/dL. Triglycerides 136 0 - 150 mg/dL [facility] HDL Cholesterol 79 50 - 110 mg/dL [facility] LDL Cholesterol Calculated 136 (H) 0 - 129 mg/dL [facility] Comment: LDL Cholesterol is the primary guide to therapy: LDL-cholesterol goal in high risk patients is <100 mg/dL and in very high risk patients is <70 mg/dL. VLDL-Cholesterol 27 0 - 30 mg/dL [facility] Cholesterol/HDL Ratio 3.1 0.0 - 5.0 [facility] Specimen Anatomical Collection Method Collection Time Receive d Time (Source) Location / / Volume Laterality Blood specimen 04/12/2012 8:21 AM 012 8:22 (specimen) CDT AM CDT Anh Costa APRN, CNP LAB - BLOOD ORDERABLES Performing Organization Address City/[facility]/ZIP Code Phon e Number [facility] [address] [place] [address] [facility] EKG 12 LEAD (04/12/2012) Narrative This result has an attachment that is no t available. Provider Abstract ECG ORDERABLES documented in this encounter Visit Diagnoses Diagnosis CARDIOVASCULAR SCREENING; LDL GOAL LESS THAN 130 - Primary documented in this encounter
--- OUTSIDE RECORDS SUMMARY | 2022-07-30 20:12 | XMS_ITS | Encounter Summary ---
:1945 Author Organization [place] Address [address] [place] [address]. [place] [address] Care Team Providers Name Role Phone Unavailable Primary Care Provider Unavailable Reason for Visit Reason Comments RECHECK F/U hemorrhoids and anal fis sure Encounter Details Date Type Department Care Team Description 05/02/2012 Office Visit Colon and Rectal Evonne Hamilton emorrhoids Surgery Clinic Theresa Huff [facility] [address] [facility] (Primary Dx) Building 450 1st Floor, Clinic [address] [place] [address] Social History Tobacco Use Types [...] Referring provider: Lisseth Vang MD [facility] [address] [facility] [address] [place] [address] RE: Ramona Sheikh : 1945 [place]USA: 05/02/2012 [...] and Rectal Surgery Attending Department of Surgery [facility] Medical history: Past Medical History Diagnosis Date [...] ??? Heart attack Maternal Grandfather 82 of [place] ??? Cardiovascular [...] Visit Internal Medicine Margot Branham MD [address] [place] [address] [phone] (Wo rk) documented as of this encounter Visit Diagnoses Diagnosis External hemorrhoids with complication - Primary External hemorrhoids with other complica tion documented in this encounter
--- OUTSIDE RECORDS SUMMARY | 2022-07-30 20:12 | XMS_ITS | Encounter Summary ---
:1945 Author Organization [place] Address [address] [place] [address]. [place] [address] Care Team Providers Name Role Phone Unavailable Primary Care Provider Unavailable Reason for Visit Reason Onset Date Comments Pre Visit Planning - Unable To Reach 08/19/2012 Lef t Voicemail Message. Encounter Details Date Type Department Care Team Description 08/19/2012 Telephone UROLOGY CLINIC AND [facility] Pre Visit Planning - [facility] MY[facility] Teran Unable To Reach (Left AND UROLOGIC CANCERS [address] [facility] Voicemail Message.) [facility] 4TH FLOOR, [address], [facility] [address] [place] [address] Social History Tobacco Use Types [...] date and time. Pt asked to call [facility] back at [phone] option #2 to go over pre visit planning prior to appointment or call if need for cance llation occurs. Ramona Smith RN GR[place] documented in this encounter Plan of Treatment Upcoming Encounters Date Type Specialty Care Team Description 09/10/2022 Office Visit Internal Medicine LogeaMargot man MD [address] [address] (Wo rk) documented as of this encounter Visit Diagnoses Not on filedocumented in this encounter
--- OUTSIDE RECORDS SUMMARY | 2022-07-30 20:12 | XMS_ITS | Encounter Summary ---
:1945 Author Organization [place] Address [address] [place] [address]. [place] [address] Care Team Providers Name Role Phone Unavailable [...] Floor, Clinic 1E generic per protocol.) 6 [place] [phone] Social History Tobacco Use Types Packs/Day Years [...] Visit Internal Medicine Margot Branham MD [address] [phone] (Wo rk) documented as of this encounter Visit Diagnoses Not on filedocumented in this encounter
--- OUTSIDE RECORDS SUMMARY | 2022-07-30 20:12 | XMS_ITS | Encounter Summary ---
:1945 Author Organization [place] Address [address] [place] [address]. [place] [address] Care Team Providers Name Role Phone Unavailable Primary Care Provider Unavailable Encounter Details Date Type Department Care Team Description 11/19/2012 Results Only UROLOGY CLINIC AND [place] FOR PROSTATE AND Sherice mcrae PA-C UROLOGIC CANCERS [address] [place] [address] 4TH FLOOR, [address] [facility], (Fax ) [place] [phone] Social History Tobacco Use Types Packs/Day [...] Internal Medicine Margot Branham MD [address] [phone] (Wo rk) Scheduled Orders Name Type Priority Associated Diagnoses Order S nilda [facility] Clinic - urodynamic Imaging Ord ered: 11/19/2012 flow study under fluoroscopy documented as of this encounter Visit Diagnoses Not on filedocumented in this encounter
--- OUTSIDE RECORDS SUMMARY | 2022-07-30 20:12 | XMS_ITS | Encounter Summary ---
:1945 Author Organization [place] Address [address] [place] [address]. [place] [address] Care Team Providers Name Role Phone Unavailable Primary Care Provider Unavailable Encounter Details Date Type Department Care Team Description 12/24/2011 Telephone Colon and Rectal Surgery Merrill Garcia MD Clinic 420 [facility] [address] [place] [address] [facility] 1st Floor, Clinic 1E [address] [place] [phone] Social History Tobacco Use Types Packs/Day [...] Internal Medicine Margot Branham MD [address] [phone] (Wo rk) documented as of this encounter Visit Diagnoses Not on filedocumented in this encounter
--- OUTSIDE RECORDS SUMMARY | 2022-07-30 20:12 | XMS_ITS | Encounter Summary ---
:1945 Author Organization [place] Address [address] [place] [address]. [place] [address] Care Team Providers Name Role Phone Unavailable Primary Care Provider Unavailable Reason for Visit Reason Onset Date Comments Pre Visit Planning - Done 04/11/2012 Dea lieberman Encounter Details Date Type Department Care Team Description 04/11/2012 PRE VISIT [facility] Anh Costa, Pre Visit Planning - Physicians Heart CLINICAL SERVICES PROFESSIONAL LOGISTICS SUPPORT Done [facility] Building 4th Floor, Clinic [address]B [address] [phone] Social History Tobacco Use Types Packs/Day Years [...] Office Visit Internal Medicine Margot Branham MD [address] [place] [phone] (Wo rk) documented as of this encounter Visit Diagnoses Not on filedocumented in this encounter
--- OUTSIDE RECORDS SUMMARY | 2022-07-30 20:12 | XMS_ITS | Encounter Summary ---
:1945 Author Organization [place] Address [address] [place] [address]. [place] [address] Care Team Providers Name Role Phone Unavailable Primary Care Provider Unavailable Reason for Referral - Closed Specialty Diagnoses / Procedures Referred By Contact Refer red To Contact Diagnoses Tinnitus Vanessa Mcgregor MD [address] [phone] Referral ID Status Reason Start Date Expiration Date Visits Requ ested Visits Authorized [id number] Closed 12/25/2011 06/22/2012 1 1 Encounter Details Date Type Department Care Team Description 12/25/2011 Orders Only Ear, Nose and Throat Vanessa Mcgregor MD Tinnitus (Primary Dx) Clinic 420 [facility] 8th Floor, Clinic 8A 396 [place], [place] Building [address] [place] [address] [facility] [place] [address] Social History Tobacco Use Types [...] pt voice mail with # for scheduling [phone]. documented in this encounter Plan of Treatment Upcoming Encounters Date Type Specialty Care Team Description 09/10/2022 Office Visit Internal Medicine LogeaMargot man MD [address] [place] [phone] (Wo rk) Scheduled Referrals Name Type Priority Associated Diagnoses Order S chedule MISCELLANEOUS REFERRAL Referral Routine Tinnitus Order ed: 12/25/2011 documented as of this encounter Visit Diagnoses Diagnosis Tinnitus - Primary Unspecified tinnitus documented in this encounter
--- OUTSIDE RECORDS SUMMARY | 2022-07-30 20:12 | XMS_ITS | Encounter Summary ---
:1945 Author Organization [place] Address [address] [place] [address]. [place] [address] Care Team Providers Name Role Phone Unavailable Primary Care Provider Unavailable Reason for Visit JAN Physical Therapy (Routine) - Closed Specialty Diagnoses / Procedures Referred By Contact Refer red To Contact Carlota Landeros M D M [facility] Sports & [address] [place] Physical Therapy - [place], [place] [phone] [place] [address] Phone: Fax: Referral ID Status Reason Start Date Expiration Date Visits Requ ested Visits Authorized JAN/HP/FWO Closed 10/04/2012 10/03/2013 20 18 Encounter Details Date Type Department Care Team Description 12/06/2012 Therapy Visit [facility] Fatemeh Silva PT Muscle weakness (Primary Dx); Rehabilitation Services [address] [facility] ixed [facility] AL[place]SSA 100 [address] [place] [phone] Social History Tobacco Use Types Packs/Day [...] Internal Medicine Margot Branham MD [address] [address] (Wo rk) documented as of this encounter Procedures Procedure Name Priority Date/Time Associated Diagnosis Comme nts [facility] THERAPEUTIC Routine 12/06/2012 4:53 PM Muscle weakne ss ACTIVITIES DESK REPORTER Mixed incontinence [facility] NEUROMUSCULAR Routine 12/06/2012 4:53 PM Muscle weak ness RE-EDUCATION DESK REPORTER Mixed incontinence [facility] THERAPEUTIC Routine 12/06/2012 4:53 PM Muscle weakne ss EXERCISES DESK REPORTER Mixed incontinence documented in this encounter Visit Diagnoses Diagnosis Muscle weakness - Primary Muscle weakness (generalized) Mixed incontinence Mixed incontinence urge and stress (male )(female) documented in this encounter
--- OUTSIDE RECORDS SUMMARY | 2022-07-30 20:12 | XMS_ITS | Encounter Summary ---
:1945 Author Organization [place] Address [address] [place] [address]. [place] [address] Care Team Providers Name Role Phone Unavailable Primary Care Provider Unavailable Reason for Visit Reason Onset Date Comments Pre Visit Planning - 2 Attempts 08/30/2012 Left Voi cemail Message Encounter Details Date Type Department Care Team Description 08/30/2012 Telephone UROLOGY CLINIC AND [facility] Pre Visit Planning - 2 [facility] Teran Attempts (Left AND UROLOGIC CANCERS [address] [facility] Voicemail Message) [facility] 4TH FLOOR, [address] [place] [address] Social History Tobacco Use Types [...] date and time. Pt asked to call [facility] back at [phone] option #2 to go over pre visit planning prior to appointment or to cancel appointment if needed. Ramona Smith RN UGATOR documented in this encounter Plan of Treatment Upcoming Encounters Date Type Specialty Care Team Description 09/10/2022 Office Visit Internal Medicine Margot Branham MD [address] [address] (Wo rk) documented as of this encounter Visit Diagnoses Not on filedocumented in this encounter
--- OUTSIDE RECORDS SUMMARY | 2022-07-30 20:12 | XMS_ITS | Encounter Summary ---
:1945 Author Organization [place] Address [address] [place] [address]. [place] [address] Care Team Providers Name Role Phone Unavailable Primary Care Provider Unavailable Reason for Visit Reason Onset Date Comments Pre Visit Planning - Done 06/23/2012 Encounter Details Date Type Department Care Team Description 06/23/2012 Telephone UROLOGY CLINIC AND Carlota Landeros, Pre Visit Planning - [facility] MD Done AND UROLOGIC CANCERS [address] [facility] 100 4TH FLOOR, [address] [place] [address] [place] [address] Social History Tobacco Use Types [...] Visit Internal Medicine Margot Branham MD 909 [facility] 4TH [place] [address] (Wo rk) documented as of this encounter Visit Diagnoses Not on filedocumented in this encounter
--- OUTSIDE RECORDS SUMMARY | 2022-07-30 20:12 | XMS_ITS | Encounter Summary ---
:1945 Author Organization [place] Address [address] [place] [address]. [place] [address] Care Team Providers Name Role Phone Unavailable Primary Care Provider Unavailable Reason for Referral - Closed Specialty Diagnoses / Procedures Referred By Contact Refer red To Contact Diagnoses Mixed incontinence urge and stress (male)([place] [address] [place], [place] [address] Referral ID Status Reason Start Date Expiration Date Visits Requ ested Visits Authorized [id number] Closed 08/31/2012 02/27/2013 1 1 CIDE SQUAD COMMANDING OFFICER Reason for Visit Reason Comments RECHECK urodynamic Encounter Details Date Type Department Care Team Description 08/31/2012 Office Visit UROLOGY CLINIC AND Carlota Landeros Mix ed incontinence [facility] urge and stress [facility] AND UROLOGIC [address] (m janina)(female) CANCERS [place] 100 (Primary Dx) [place], [place] BUILDING [address] 4TH FLOOR, [address] [place] [address] (Work) , [facility] [address] [place] [address] Social History Tobacco Use Types [...] Comments Blood Pressure 159/74 08/31/2012 10:49 AM HOMICIDE SQUAD COMMANDING OFFICER Pulse 75 08/31/2012 10:49 AM HOMICIDE SQUAD COMMANDING OFFICER Temperature - - Respiratory Rate - - Oxygen Saturation - - Inhaled Oxygen Concentration - - Weight 85.3 kg (188 lb) 08/31/2012 10:49 AM HOMICIDE SQUAD COMMANDING OFFICER Height 170.2 cm (5' 7) 08/31/2012 10:49 AM HOMICIDE SQUAD COMMANDING OFFICER Body Mass Index 29.44 08/31/2012 10:49 AM HOMICIDE SQUAD COMMANDING OFFICER documented in this encounter Patient Instructions Patient InstructionsWrEssnece shipley LPN - 08/31/2012 11:28 AM CST Patient to return in 3 months [employer]IDE [employer] COMMANDING OFFICER documented in this encounter Progress Notes [...] ml. 6. Left hemipelvis [employer] lead on bartender manager imaging. A/P: 67 year old female with [...] min spent with patient, >50% in discussion. CIDE S[employer] COMMANDING OFFICER documented in this encounter Plan of Treatment Upcoming Encounters Date Type Specialty Care Team Description 09/10/2022 Office Visit Internal Medicine Logeais, MD Margot [address] [place] [address] [phone] (Wo rk) Scheduled Referrals Name Type Priority Associated Diagnoses Order S feliciale JAN Physical Therapy Referral Routine Mixed incontinence u rge Ordered: 08/31/2012 Referral and stress (male)(female) documented as of this encounter Visit Diagnoses Diagnosis Mixed incontinence urge and stress (male )(female) - Primary documented in this encounter
--- OUTSIDE RECORDS SUMMARY | 2022-07-30 20:12 | XMS_ITS | Encounter Summary ---
:1945 Author Organization [place] Address [address] [place] [address]. [place] [address] Care Team Providers Name Role Phone Unavailable Primary Care Provider Unavailable Encounter Details Date Type Department Care Team Description 12/23/2011 Orders Only Ear, Nose and Throat Vanessa Mcgregor MD Tinnitus (Primary Dx) Clinic 420 [facility] 8th Floor, Clinic 8A [address] [place], [place] Building [address] [place] [address] [facility] [address] Social History Tobacco Use Types [...] Office Visit Internal Medicine Margot Branham MD [address] [place] [address] [phone] (Wo rk) documented as of this encounter Visit Diagnoses Diagnosis Tinnitus - Primary Unspecified tinnitus documented in this encounter
--- OUTSIDE RECORDS SUMMARY | 2022-07-30 20:12 | XMS_ITS | Encounter Summary ---
:1945 Author Organization [place] Address [address] [place] [address]. [place] [address] Care Team Providers Name Role Phone Unavailable Primary Care Provider Unavailable Encounter Details Date Type Department Care Team Description 12/10/2011 Orders Only [facility] Doctor, MD Regulo Pizarro [facility] lding [address] [facility] - 1st Floor [place], [place] [phone] Social History Tobacco Use [...] Office Visit Internal Medicine LogMargot sadler MD [address] [place] [address] [phone] (Wo rk) documented as of this encounter Procedures Procedure Name Priority Date/Time Associated Diagnosis Comme nts MA SCREENING Routine 12/10/2011 12:23 PM Results for this DIGITAL BILATERAL HEAD [employer] procedure are in the results section. documented in this encounter Results Mammo Screening digital (bilat) (12/10/2011 12:23 PM HEAD [employer]) Anatomical Region Laterality Modality Breast Bilateral Other Specimen (Source) Anatomical Collection Method Collection Time Re ceived Time Location / / Volume Laterality 12/10/2011 12:23 PM HEAD [employer] Impressions 12/16/2011 8:50 AM CDT Examination: Bilateral [...]
--- OUTSIDE RECORDS SUMMARY | 2022-07-30 20:12 | XMS_ITS | Encounter Summary ---
:1945 Author Organization [place] Address [address] [place] [address] Care Team Providers Name Role Phone Unavailable [...] Office Visit Internal Medicine Logeais, MD Margot [address] [place] [address] (Wo rk) documented as of this [...] RESULTS Atrial Rate 68 BPM RADIOLOGY RESULTS [place] Interval 158 ms RADIOLOGY RESULTS QRS Duration 104 ms RADIOLOGY RESULTS QT 404 ms RADIOLOGY RESULTS QTc 429 ms RADIOLOGY RESULTS P [place] 23 degrees RADIOLOGY RESULTS R AXIS 16 degrees RADIOLOGY RESULTS T [place] 51 degrees RADIOLOGY RESULTS Interpretation Sinus rhythm [...]
--- OUTSIDE RECORDS SUMMARY | 2022-07-30 20:12 | XMS_ITS | Encounter Summary ---
:1945 Author Organization [place] Address [address] [place] [address]. [place] [address] Care Team Providers Name Role Phone Unavailable Primary Care Provider Unavailable Reason for Visit Reason Onset Date Comments Pre Visit Planning - Done 03/10/2012 Encounter Details Date Type Department Care Team Description 03/10/2012 Telephone UROLOGY CLINIC AND Carlota Landeros, [facility] - [facility] MD Done [facility] [address] [facility] 100 4TH FLOOR, [address] [place] [address] [place] [address] Social History Tobacco Use Types [...] Visit Internal Medicine Logeais, MD Margot [address] [phone] (Wo rk) documented as of this encounter Visit Diagnoses Not on filedocumented in this encounter
--- OUTSIDE RECORDS SUMMARY | 2022-07-30 20:12 | XMS_ITS | Encounter Summary ---
:1945 Author Organization [place] Address [address] [facility] [address] Care Team Providers Name Role Phone Unavailable Primary Care Provider Unavailable Reason for Visit Reason Onset Date Comments Results 09/09/2012 DEXA Encounter Details Date Type Department Care Team Description 09/09/2012 Telephone [facility] Women's Clinic Nurse, Alyssa walker s Results (DEXA) Circle [address] [address] 3rd Fl[address],[facility] 300 [place], [place] [phone] Social History Tobacco Use Types Packs/Day [...] not see this in her medication list. TTING MANAGER Telephone Encounter - Jorge Garg RN - [...] send do pt Pro Pharm on file [phone] Meche Orona TTING MANAGER documented in this encounter Plan of Treatment Upcoming Encounters Date Type Specialty Care Team Description 09/10/2022 Office Visit Internal Medicine LogeaisMargot MD [address] [place] [address] (Wo rk) documented as of this encounter Visit Diagnoses Not on filedocumented in this encounter
--- OUTSIDE RECORDS SUMMARY | 2022-07-30 20:12 | XMS_ITS | Encounter Summary ---
:1945 Author Organization [place] Address [address] [place] [address]. [place] [address] Care Team Providers Name Role Phone Unavailable Primary Care Provider Unavailable Reason for Visit Reason Onset Date Comments Erroneous encounter-disregard 08/30/2012 Error Encounter Details Date Type Department Care Team Description 08/30/2012 Telephone UROLOGY CLINIC AND [facility] MYKEL Teran encounter-disregard AND UR[facility] CANCERS [address] [facility] (Error) [facility] 4TH FLOOR, [address] [place] [address] [place] [address] Social History Tobacco Use Types [...] 08/30/2012 11:38 AM CST Opened in error. 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
--- OUTSIDE RECORDS SUMMARY | 2022-07-30 20:12 | XMS_ITS | Encounter Summary ---
:1945 Author Organization [place] Address [address] [place] [address]. [place] [address] Care Team Providers Name Role Phone Shanell Vang MD Primary Care Provider Mehreen Johnston MD PhD Primary Care Provider [phone] Balbir Simpson MD Primary Care Provider [phone] Carltoa Landeros MD Unavailable Balbir Simpson MD Unavailable [phone] Luz Maria Kelly MD Unavailable Shanell Vang MD Unavailable Michelle Montana RN Unavailable Anh Costa APRN STEWARD/STEWARDESS LOUNGE Unavailable Unavailable Martinez Galicia MD Unavailable Sabino Romano DPM Unavailable Kyle Roberts MD Primary Care Provider Mehreen Johnston MD PhD Unavailable [phone] LogeaMargot man MD Unavailable Martinez Galicia MD Unavailable LogMargot sadler MD Unavailable LogMargot sadler MD Primary Care Provider Levy Hussein MD Unavailable Alonso Tejeda MD Unavailable Encounter Details Date Type Department Care Team Description 08/31/2012 Office Visit-[facility] Anh Ascencio MD [address] [place] [address] (Wo rk) Social History Tobacco Use Types Packs/Day Years Used Date Smoking Tobacco: Never Smokeless Tobacco: Never Alcohol Use Standard Drinks/Week Comments No 0 (1 standard drink = 0.6 oz pure alcoho l) Sex Assigned at Date Recorded Female 12/20/2018 4:10 PM CDT documented as of this encounter Progress Notes Anh Ascencio MD - 08/31/2012 10:30 AM CST Quill Fixer: Anh Ascencio Status: Final - Signature Encounter: 2012-08-31 10:30:00.000 Type: DXA SCAN [facility] [address] [place] [address] [address] [place] [address] Phone: Fax: Bone Densitometry Report: 08/31/[address]: Your patient, YIMI GARCIA ([id number] ), completed a DXA exam ([id number] ) on a [employer] on 08/31/2012 . The following is a [...] SHANELL VANG DR: Your patient, YIMI GARCIA ([id number] ), completed a DXA exam ([id number] ) on a [employer] on 08/31/2012 . The following are the [...] be considered. Clinical correlation recommended. Principal result foreign language interpreter: Anh Ascencio MD, [facility] Division of Diabetes, Endocrinology and Metabolism [facility] [phone] Ref. 1. WHO categories: T-score > -1.0 = normal . T-score -1.0 to -2.5 = low bone density T-score < -2.5 = osteoporosis . Ref. 2. NOF Physician's Guideline Website address: www.nof.org. Ref. 3. [employer] College [employer]umat[employer] 2010 recommendations in the prevention and treatment of Glucocorticoid-induced Osteoporosis: Arthritis Care & Research 2010; 62(11): 0070-9536. Ref. 4. ISCD position statements: www.iscd.org. According [...] LSC for the right hip at the [facility] center is 0.018 gm/cm2. As of 03.18.07, the LSC for the left hip at the [facility] center is 0.029 g/cm2. As of 03.29.07, the LSC for the left mid radius at the [facility] center is 0.043 g/cm2. As of 09.21.04, [...] by:Anh Ascencio M.D. Sep 05 2012 9:55PM ENGINEERING TECHNOLOGIST Author NEERING TECHNOLOGIST documented in this encounter Plan of Treatment Upcoming Encounters Date Type Specialty Care Team Description 09/10/2022 Office Visit Internal Medicine Margot Branham MD [address] [place] [address] (Wo rk) documented as of this encounter Visit Diagnoses Not on filedocumented in this encounter Care Teams Programs Assistant Relationship Specialty Start Date End Date Shanell Vang, PCP - General 04/13/16 11/14/[address] [facility] 300 [place] [address] Mehreen Johnston, PCP - General Family Practice 11/27/1303/05 PhD Balbir Simpson PCP - General Internal Medicine 03/26/15 6 MD Juvencio Kyle Roberts MD PCP - General Family Practice 11/15/19 10/27/[address] [place] [address] Margot Branham MD PCP - General Internal Medicine 10/28/20 909 [facility] 4TH [place] [address] Carlota Landeros MD MD Urology 04/10/[address] [place] [address] [place] [address] Balbir Simpson Referring Physician Internal Medicine 04/17/15 03/29/16 MD Juvencio Luz Maria Kelly MD Internal Medicine 03/27/1602/02 Shanell Vang, PCP Family Practice 03/30/[address] [place] [address] [place] [address] Michelle Montana, MODESTA Registered Nurse Urology 05/07/17 Anh Costa APRN Nurse Practitioner Nurse Practitioner 10/07/17 Martinez Hernandez MD Ophthalmology 04/18/[address] [place] [address] Sabino Romano DPM MD Podiatry 08/11/18 [facility] [address] [phone] Mehreen Johnston MD Family Practice 11/15/19 MD PhD [address] [place] [phone] Margot Branham MD MD Internal Medicine 04/17/[address] [place] [address] [phone] Martinez Galicia, Assigned Surgical 07/26/20 MD Provider [address] [place] [address] [phone] Margot Branham MD Assigned PCP 09/15/[address] [place] [address] [phone] Levy Hussein MD Assigned Surgical 03/23/21 06/14/[address] [place] [address] [place] [address] Alonso Tejeda MD MD Internal Medicine 06/19/[address] [place] [address] documented as of this encounter
--- OUTSIDE RECORDS SUMMARY | 2022-07-30 20:12 | XMS_ITS | Encounter Summary ---
:1945 Author Organization [place] Address [address] [place] [address]. [place] [address] Care Team Providers Name Role Phone Unavailable Primary Care Provider Unavailable Reason for Visit Reason Onset Date Comments Pre Visit Planning - Done 06/23/2012 Encounter Details Date Type Department Care Team Description 06/23/2012 Telephone UROLOGY CLINIC AND Carlota Landeros, Pre Visit [facility] - [facility] MD Done [facility] [address] [facility] 100 4TH FLOOR, [address] [place] [address] [place] [address] Social History Tobacco Use Types [...] Office Visit Internal Medicine LogMargot sadler MD [address] [place] [address] (Wo rk) documented as of this encounter Visit Diagnoses Not on filedocumented in this encounter
--- OUTSIDE RECORDS SUMMARY | 2022-07-30 20:12 | XMS_ITS | Encounter Summary ---
:1945 Author Organization [place] Address [address] [place] [address]. [place] [address] Care Team Providers Name Role Phone Unavailable Primary Care Provider Unavailable Reason for Visit Reason Onset Date Comments Pre Visit Planning - Done 02/10/2012 Hypertension Encounter Details Date Type Department Care Team Description 02/10/2012 PRE VISIT [facility] Damian Villanueva, Pre Visit Planning - Phys[facility] MD Done (Hypertension) [facility] [address] [facility] Building [address] 4th Floor, Clinic [address] [place] [phone] [place] [address] [place] [address] Social History Tobacco Use Types [...] Internal Medicine Margot Branham MD [address] [address] (Wo rk) documented as of this encounter Visit Diagnoses Not on filedocumented in this encounter
--- OUTSIDE RECORDS SUMMARY | 2022-07-30 20:12 | XMS_ITS | Encounter Summary ---
:1945 Author Organization [place] Address [address] [place] [address]. [place] [address] Care Team Providers Name Role Phone Unavailable Primary Care Provider Unavailable Reason for Visit JAN Physical Therapy (Routine) - Closed Specialty Diagnoses / Procedures Referred By Contact Refer red To Contact Carlota Landeros M D M [facility] Sports & [address] [place] Physical Therapy - [place], [place] [address] [place] [address] Phone: Fax: Referral ID Status Reason Start Date Expiration Date Visits Requ ested Visits Authorized JAN/HP/FWO Closed 10/04/2012 10/03/2013 20 18 Encounter Details Date Type Department Care Team Description 11/15/2012 Therapy Visit [facility] Fatemeh Silva PT Muscle weakness (Primary Dx); Rehabilitation Services [address] [facility] ixed [facility] [place] [place] [address] Social History Tobacco Use Types Packs/Day [...] Office Visit Internal Medicine Margot Branham MD [address] [place] [address] (Wo rk) documented as of this encounter Procedures Procedure Name Priority Date/Time Associated Diagnosis Comme nts [facility] THERAPEUTIC Routine 11/17/2012 1:43 PM Muscle weakne ss ACTIVITIES BLUE LINE TRIMMER Mixed incontinence [facility] NEUROMUSCULAR Routine 11/17/2012 1:43 PM Muscle weak ness RE-EDUCATION BLUE LINE TRIMMER Mixed incontinence [facility] THERAPEUTIC Routine 11/17/2012 1:43 PM Muscle weakne ss EXERCISES BLUE LINE TRIMMER Mixed incontinence documented in this encounter Visit Diagnoses Diagnosis Muscle weakness - Primary Muscle weakness (generalized) Mixed incontinence Mixed incontinence urge and stress (male )(female) documented in this encounter
--- OUTSIDE RECORDS SUMMARY | 2022-07-30 20:12 | XMS_ITS | Encounter Summary ---
:1945 Author Organization [place] Address [address] [place] [address]. [place] [address] Care Team Providers Name Role Phone Unavailable Primary Care Provider Unavailable Reason for Visit JAN Physical Therapy (Routine) - Closed Specialty Diagnoses / Procedures Referred By Contact Refer red To Contact Carlota Landeros M D M [facility] Sports & [address] [place] Physical Therapy - [place], [place] [address] [place] [address] Phone: Fax: Referral ID Status Reason Start Date Expiration Date Visits Requ ested Visits Authorized JAN/HP/FWO Closed 10/04/2012 10/03/2013 20 18 Encounter Details Date Type Department Care Team Description 10/18/[address] [facility] Fatemeh Silva PT Muscle weakness (Primary Dx); Rehabilitation Services [address] [facility] ixed [facility] [address] [place] [address] Social History Tobacco Use Types Packs/Day [...] Visit Internal Medicine Margot Branham MD [address] [place] [address] (Wo rk) documented as of this encounter Procedures Procedure Name Priority Date/Time Associated Diagnosis Comme nts [facility] THERAPEUTIC Routine 10/18/2012 5:47 PM Muscle weakne ss ACTIVITIES FACILITY PRACTICE SPECIALIST Mixed incontinence [facility] NEUROMUSCULAR Routine 10/18/2012 5:47 PM Muscle weak ness RE-EDUCATION FACILITY PRACTICE SPECIALIST Mixed incontinence [facility] THERAPEUTIC Routine 10/18/2012 5:47 PM Muscle weakne ss EXERCISES FACILITY PRACTICE SPECIALIST Mixed incontinence documented in this encounter Visit Diagnoses Diagnosis Muscle weakness - Primary Muscle weakness (generalized) Mixed incontinence Mixed incontinence urge and stress (male )(female) documented in this encounter
--- OUTSIDE RECORDS SUMMARY | 2022-07-30 20:12 | XMS_ITS | Encounter Summary ---
:1945 Author Organization [place] Address [address] [place] [address]. 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
--- OUTSIDE RECORDS SUMMARY | 2022-07-30 20:12 | XMS_ITS | Encounter Summary ---
:1945 Author Organization [place] Address [address] [facility] 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 [place] Atrophic vaginitis; [place], [place] Vaginal dryness; 3RD FLR,[address] [address] Weight gain; [address] [phone] Varicose veins [facility] (Work) [place], [place] [address] [phone] Social History Tobacco Use Types Packs/Day Years Used Date Smoking Tobacco: Never Smokeless Tobacco: Never Alcohol Use Standard Drinks/Week Comments No 0 (1 standard drink = 0.6 oz pure alcoho l) Sex Assigned at Date Recorded Female 12/20/2018 4:10 PM CDT documented as of this encounter Last Filed Vital Signs Vital Sign Reading Time Taken Comments Blood Pressure 142/88 08/16/2012 4:21 PM GAME ARTIST Pulse 77 08/16/2012 4:21 PM GAME ARTIST Temperature - - Respiratory Rate - - Oxygen Saturation - - Inhaled Oxygen Concentration - - Weight 84.3 kg (185 lb 12.8 oz) 08/16/2012 3:30 PM GAME ARTIST Height 167.6 cm (5' 6) 08/16/2012 3:30 PM GAME ARTIST Body Mass Index 29.99 08/16/2012 3:30 PM GAME ARTIST documented in this encounter Progress Notes Lisseth Vang MD - 08/18/2012 10:20 PM GAME ARTIST Quick Note: No notes recorded by provider ARTIST Lisseth Vang MD - 08/18/2012 10:20 PM GAME ARTIST Quick Note: Labs are normal. 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 Will retire at age 71. 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 No enlargement of the [place] or [place] glands. Urethra and bladder are non-tender. Vagina [...] 25- [place]-Vitamin D; Future - TSH; Future ARTIST documented in this encounter Nursing Notes 08/16/2012 3:20 PM CST >> Addison Martinez LPN [place] Aug 16, 2012 3:31 PM Patient presents with: Physical Addison Martinez LPN documented in this encounter Plan of Treatment Upcoming Encounters Date Type Specialty Care Team Description 09/10/2022 Office Visit Internal Medicine Margot Branham MD [address] [place] [phone] (Wo rk) documented as of this encounter Procedures Procedure Name Priority Date/Time Associated Diagnosis Comme nts VITAMIN D DEFICIENCY Routine 08/16/2012 4:37 PM Weight gain R esults for this SCREENING GAME ARTIST procedure are i n the results section. TSH Routine 08/16/2012 4:37 PM Weight gain Results f or this GAME ARTIST procedure are i n the results section. CRP INFLAMMATION Routine 08/16/2012 4:37 PM Hypertension Resul ts for this GAME ARTIST procedure are i n the results section. CRP CARDIAC RISK Routine 08/16/2012 4:37 PM Hypertension Resul ts for this GAME ARTIST procedure are i n the results section. BASIC METABOLIC PANEL Routine 08/16/2012 4:37 PM Hypertension Results for this GAME ARTIST procedure are i n the results section. CBC WITH PLATELETS Routine 08/16/2012 4:37 PM Hypertension Res ults for this GAME ARTIST procedure are i n the results section. documented in this encounter Results CBC with Platelets (08/16/2012 4:37 PM GAME ARTIST) athologist Signature WBC 7.0 4.0 - 11.0 [...] specimen 08/16/2012 4:37 PM 012 4:40 (specimen) GAME ARTIST PM GAME ARTIST Lisseth Vang MD LAB - BLOOD ORDERABLES Performing Organization Address City/State/ZIP Code Phon e Number [facility] [address] [place], [place] [phone] [place] [address] LAB Basic Metabolic Panel (08/16/2012 4:37 PM GAME ARTIST) athologist Signature Sodium 138 133 - 144 [...] Urea Nitrogen 17 7 - 30 mg/dL [facility] Creatinine 0.80 0.52 - 1.04 mg/dL [facility] LAB GFR Estimate 72 >60 mL/min/1.7m2 [facility] LAB GFR Estimate If Black 87 >60 mL/min/1.7m2 [facility] LAB Calcium 8.9 8.5 - 10.4 mg/dL [facility] E LAB Specimen Anatomical Collection Method Collection Time Receive d Time (Source) Location / / Volume Laterality Blood specimen 08/16/2012 4:37 PM 012 4:40 (specimen) GAME ARTIST PM GAME ARTIST Lisseth Vang MD LAB - BLOOD ORDERABLES Performing Organization Address City/[facility]/ZIP Code Phon e Number [address] [address] [facility] LAB TSH (08/16/2012 4:37 PM GAME ARTIST) athologist Signature TSH 1.15 0.4 - 5.0 [facility] mU/L LAB Specimen Anatomical Collection Method Collection Time Receive d Time (Source) Location / / Volume Laterality Blood specimen 08/16/2012 4:37 PM 012 4:40 (specimen) GAME ARTIST PM GAME ARTIST Lisseth Vang MD LAB - BLOOD ORDERABLES Performing Organization Address City/[facility]/ZIP Code Phon e Number [phone] [place] [address] LAB CRP Cardiac Risk (08/16/2012 4:37 PM GAME ARTIST) athologist Signature CRP Cardiac 4.3 mg/L [facility] Comment: Reference Values: Low Risk: ? <1.0 mg/L Average Risk: ? 1.0-3.0 mg/L High Risk: ?>3.0 mg/L Acute Inflammation: >8.0 mg/L Specimen Anatomical Collection Method Collection Time Receive d Time (Source) Location / / Volume Laterality Blood specimen 08/16/2012 4:37 PM 012 4:40 (specimen) GAME ARTIST PM GAME ARTIST Lisseth Vang MD LAB - BLOOD ORDERABLES Performing Organization Address City/State/ZIP Code Phon e Number [facility] [address] [place] [address] [facility] LABS CRP Inflammation (08/16/2012 4:37 PM GAME ARTIST) athologist Signature CRP Inflammation <5.0 0.0 - 8.0 [facility] mg/L [place] LAB Specimen Anatomical Collection Method Collection Time Receive d Time (Source) Location / / Volume Laterality Blood specimen 08/16/2012 4:37 PM 012 4:40 (specimen) GAME ARTIST PM GAME ARTIST Lisseth Vang MD LAB - BLOOD ORDERABLES Performing Organization Address City/State/ZIP Code Phon e Number [facility] [address] [place], [place] [phone] [place] [address] LAB 25- [place]-Vitamin D (08/16/2012 4:37 PM GAME ARTIST) athologist Signature Vitamin D 30 30 - 75 [facility] Deficiency ug/L [facility] screening Comment: Season, race, dietary intake, and treatm ent affect the concentration of 81-sgikmsd-Uoninjg D. Values may decrea se during winter [...] questions, pl ease contact the laboratory at [phone]. Specimen Anatomical Collection Method Collection Time Receive d Time (Source) Location / / Volume Laterality Blood specimen 08/16/2012 4:37 PM 012 4:40 (specimen) GAME ARTIST PM GAME ARTIST Lisseth Vang MD LAB - BLOOD ORDERABLES Performing Organization Address City/State/ZIP Code Phon e Number [facility] [address] [place], [place] [phone] [place] [address] LABS documented in this encounter Visit Diagnoses [...]
--- OUTSIDE RECORDS SUMMARY | 2022-07-30 20:12 | XMS_ITS | Encounter Summary ---
:1945 Author Organization [place] Address [address] [place] [address]. [place] [address] Care Team Providers Name Role Phone Unavailable Primary Care Provider Unavailable Encounter Details Date Type Department Care Team Description 04/21/2012 Office Visit Physicians, Primary Danish Voss nxiety state, unspecified; Care Center N, PhD LP Tinnitus of both ears 3rd Floor, Clinic 3A [address] [facility] Mota Wangensteen [facility] [address] [address] [place], [place] (Work) [address] [phone] Social History Tobacco Use Types Packs/Day Years Used Date Smoking Tobacco: Never Smokeless Tobacco: Never Alcohol Use Standard Drinks/Week Comments No 0 (1 standard drink = 0.6 oz pure alcoho l) Sex Assigned at Date Recorded Female 12/20/2018 4:10 PM CDT documented as of this encounter Progress Notes Danish Voss, LP - 04/21/2012 1:15 PM CDT Health Psychology Department of Medicine [facility] Mail Code 741 Mary Jo Leary, Ph.D., L.P. [address] [place] [address] Danish Voss, Ph.D., A.B.P.[place]., [place] [address] Trudi Fajardo, Ph.D., L.P. Confidential Summary of Psychological Evaluation* REFERRAL SOURCE: Vanessa Mcgregor MD and Steven Navarrete, [facility]. REASON FOR REFERRAL: Ms. 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 She acknowledges having mowed a lawn with a power mower without ear protection as a teenager but otherwise is not aware of the circumstances.She is aware that she is losing her hearing, though does not use hearing aids at this time. MEDICAL HISTORY: Ms. Sheikh has had some urinary issues and high blood pressure. She is being evaluated at [facility] for cardiovascular functioning. In addition, she has [...] SOCIAL HISTORY: Ms. Sheikh grew up in [place], [place]. She is the 5th of 6 [...] 33-year-old son, Adi, who is , lives [facility] and is working as an department of mathematics chair. Ms. 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 She has worked in [place] and in [place]. She has been with the [employer] for the past 24 years. She has [...] approaches for dealing with the tinnitus. DIAGNOSES: [place] I Anxiety disorder, not otherwise specified (300.00). [place] II No diagnosis. [place] III Tinnitus, hypertension, osteopenia, arthritis. 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 [place] V Global Assessment of Functioning Scale: 75-80 [...] Health Psychology cc:Vanessa Mcgregor M.D. Sharmaine Navarrete, [facility] Mehreen Johnston M.D. *In accordance with the Rules of the [place] Board of [employer], it is noted that psychological descriptions and scientific procedures underlying psychological evaluations have limitations. Absolutepredictions cannot be made based on information in this report. documented in this encounter Plan of Treatment Upcoming Encounters Date Type Specialty Care Team Description 09/10/2022 Office Visit Internal Medicine LogMargot sadler MD [address] [place] [address] (Wo rk) documented as of this encounter Visit Diagnoses Diagnosis Anxiety state, unspecified Tinnitus of both ears Unspecified tinnitus documented in this encounter
--- OUTSIDE RECORDS SUMMARY | 2022-07-30 20:12 | XMS_ITS | Encounter Summary ---
:1945 Author Organization [place] Address [address] [place] [address]. [place] [address] Care Team Providers Name Role Phone Unavailable Primary Care Provider Unavailable Encounter Details Date Type Department Care Team Description 08/31/2012 Results Only [facility] Emerald Vang, Hospital Results [address] [facility] 300 [place], [place] [address] (Wo rk) Social History Tobacco Use Types [...] Visit Internal Medicine LogeaMargot man MD [address] [phone] (Wo rk) documented as of this encounter Procedures Procedure Name Priority Date/Time Associated Diagnosis Comme nts DX 08/31/2012 1:05 PM Results f or this WRIST/HEEL/RADIUS ROR ENGINEER procedure are in the results section. documented in this encounter Results Dexa wrist heel (08/31/2012 1:05 PM ROR ENGINEER) Anatomical Region Laterality Modality Dexa Other Specimen (Source) Anatomical Collection Method Collection Time Re ceived Time Location / / Volume Laterality 08/31/2012 1:05 PM ROR ENGINEER Narrative 09/06/2012 2:17 PM ROR ENGINEER For a complete report, see Allscripts (Emerald murillo, [id number].) ??If a hard copy i s needed or it you have questions regarding the report, please c all [phone]. ?? (Outpatient ??Imaging Center) ?? Procedure Note Anh Ascencio MD - 09/06/2012Forma tting of this note might be different from the original. For a complete report, see Allscripts (C moe lidia, [id number].) If a hard copy is needed or it you have questions regarding the report, please c all [phone]. (Outpatient Imaging Center) Lisseth Vang MD IMG DEXA ORDERABLES documented in this encounter Visit Diagnoses Not on filedocumented in this encounter
--- OUTSIDE RECORDS SUMMARY | 2022-07-30 20:12 | XMS_ITS | Encounter Summary ---
:1945 Author Organization [place] Address [address] [place] [address]. [place] [address] Care Team Providers Name Role Phone Unavailable Primary Care Provider Unavailable Reason for Visit Audiology (Routine) - Closed Specialty Diagnoses / Procedures Referred By Contact Refer red To Contact Audiology Diagnoses tinnitus eval ok'd by Vanessa Cho MD U Audiology Procedures BAHA FIT AND FOLLOW UP [address] [facility] [address] [place] [address] 4145 7 [facility] 283 8th Floor clinic 8B [facility] [place] [address] Phone: Referral ID Status Reason Start Date Expiration Date Visits Requ ested Visits Authorized [id number] Closed 03/15/2012 10/03/2012 2 2 Encounter Details Date Type Department Care Team Description 03/22/2012 Office Visit [facility] Vanessa Mcgregor MD [address] [facility] 396 [place] [address] DIAGNOSIS NOT YET Clinic Audiology Giselle Todd, AuD XXX RESIGNED XXX [address] [facility] 106 [place] [address] DEFINED (Primary Dx) [address] 283 8th Floor clinic 8B [facility] [address] r [facility] [place] [address] Social History Tobacco Use Types [...] seen in the Audiology Clinic at the [facility] on 03/22/2012 for discussion regarding tinnitus and [...] Uncomfortable Loudness Levels (UCLs) were assessed from 3239-2276 Hz. Pitch and loudness ranking were also performed, as well as minimum masking level bilaterally. Her tinnitus was interestingly found to be pitch ranked quite high. The rest of the appointment was spent discussing the possible mechanisms for tinnitus, common causes, results from today's testing, statistics, and amplification options. All of her questions were answered. She was also given information on the Emair hearing aids, and the Soundpillow device. Shewas [...] regarding these results or recommendations. Steven Cheek, [facility] Photovoltaic Installation Technician [place] #[id number] documented in this encounter Plan of Treatment Upcoming Encounters Date Type Specialty Care Team Description 09/10/2022 Office Visit Internal Medicine LogeaisMargot MD [address] [address] (Wo rk) documented as of this encounter [...]
--- OUTSIDE RECORDS SUMMARY | 2022-07-30 20:12 | XMS_ITS | Encounter Summary ---
:1945 Author Organization [place] Address [address] [place] [address]. [place] [address] Care Team Providers Name Role Phone Unavailable Primary Care Provider Unavailable Reason for Visit JAN Physical Therapy (Routine) - Closed Specialty Diagnoses / Procedures Referred By Contact Refer red To Contact Carlota Landeros M D M [facility] [address] [place] [address] Physical Therapy - [place], [place] [address] [address] [place] [address] Phone: Fax: Referral ID Status Reason Start Date Expiration Date Visits Requ ested Visits Authorized JAN/HP/FWO Closed 10/04/2012 10/03/2013 20 18 Encounter Details Date Type Department Care Team Description 10/06/2012 Therapy Visit [facility] Fatemeh Silva PT Muscle weakness (Primary Dx); Rehabilitation Services [address] [facility] [place] 100 [address] [place] [address] Social History Tobacco Use Types Packs/Day [...] and time spent performing 1:1 timed codes. 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 Atrophic vaginitis - using [...] Sheet for this information) Short term and orderly goals: (See Goal Flow Sheet for this [...] and time spent performing 1:1 timed codes. ICAL SERVICES MANAGER documented in this encounter Plan of Treatment Upcoming Encounters Date Type Specialty Care Team Description 09/10/2022 Office Visit Internal Medicine LogeaisMargot MD [address] [place] [phone] (Wo rk) documented as of this encounter Procedures Procedure Name Priority Date/Time Associated Diagnosis Comme nts [facility] THERAPEUTIC Routine 10/07/2012 7:57 AM Muscle weakne ss ACTIVITIES CLINICAL SERVICES MANAGER Mixed incontinence [facility] THERAPEUTIC Routine 10/07/2012 7:57 AM Muscle weakne ss EXERCISES CLINICAL SERVICES MANAGER Mixed incontinence documented in this encounter Visit Diagnoses Diagnosis Muscle weakness - Primary Muscle weakness (generalized) Mixed incontinence Mixed incontinence urge and stress (male )(female) documented in this encounter
--- OUTSIDE RECORDS SUMMARY | 2022-07-30 20:13 | XMS_ITS | Encounter Summary ---
:1945 Author Organization [facility] Address [address] [place] [address]. [place] [address] Care Team Providers Name Role Phone Mehreen Johnston MD PhD Primary Care Provider [phone] Reason for Visit Reason Comments RECHECK reprogram interstim Encounter Details Date Type Department Care Team Description 09/09/2011 Office Visit UROLOGY CLINIC AND Carlota Landeros Uri nary retention; [facility] Urgency of urination PROSTATE AND UROLOGIC [address] [place] [place] 100 [facility] [address] 4TH FLOOR, [address] 420 [facility] , [facility] 394 [place] [address] Social History Tobacco Use Types Packs/Day Years Used Date Smoking Tobacco: Never Smokeless Tobacco: Never Alcohol Use Standard Drinks/Week Comments No 0 (1 standard drink = 0.6 oz pure alcoho l) Sex Assigned at Date Recorded Female 12/20/2018 4:10 PM CDT documented as of this encounter Last Filed Vital Signs Vital Sign Reading Time Taken Comments Blood Pressure 135/72 09/09/2011 3:53 PM DIRECTOR MUSIC Pulse 69 09/09/2011 3:53 PM DIRECTOR MUSIC Temperature - - Respiratory Rate - - Oxygen Saturation - - Inhaled Oxygen Concentration - - Weight 83.7 kg (184 lb 9.6 oz) 09/09/2011 3:53 PM DIRECTOR MUSIC Height - - Body Mass Index 29.35 05/19/2011 9:00 AM CDT documented in this encounter Progress Notes Carlota Landeros MD - 09/09/2011 4:23 PM CST Reason for Visit: f/u on interstim from 05/19/11 Clinical data: Ms. Sheikh is a 65 y.o female with hx of urinary urgency and UI who underwent interstim. She returns today in f/u. She is doing well. Her accidents have become very rare. She feels like she is emptying better. She is pleased but is still working with the different programs and has difficulty changing the settings so she presents today for further help with this. She is currently on program 3 and is up to 2.2 from 1.8 today. She is tolerating it well. A/P: 65 y/o female with the above -f/u as needed. Thank you for allowing me to participate in the care of Ms. Ramona Sheikh and I will keep you updated on her progress. Carlota Landeros MD 10 min spent with patient, >50% in discussion CTOR MUSIC documented in this encounter Plan of Treatment Upcoming Encounters Date Type Specialty Care Team Description 09/10/2022 Office Visit Internal Medicine Margot Branham MD [address] [address] (Wo rk) documented as of this encounter Visit Diagnoses Diagnosis Urinary retention Retention of urine, unspecified Urgency of urination documented in this encounter Care Teams Bilingual Instructor Relationship Specialty Start Date End Date Mehreen Johnston MD PhD PCP - General Family Practice 03/19/11 11/15/11 documented as of this encounter
--- OUTSIDE RECORDS SUMMARY | 2022-07-30 20:13 | XMS_ITS | Encounter Summary ---
:1945 Author Organization [place] Address [address] [place] [address]. [place] [address] Care Team Providers Name Role Phone Mehreen Johnston MD PhD Primary Care Provider [phone] Reason for Visit Reason Comments Surgical Followup interstim Encounter Details Date Type Department Care Team Description 06/03/2011 Office Visit UROLOGY CLINIC AND Carlota Landeros Uri nary retention; [facility] Urgency of urination [facility] AND UROLOGIC [address] [place] 100 [facility] [address] 4TH FLOOR, [address] 420 [facility] , [facility] 394 [place] [address] Social History Tobacco Use Types Packs/Day Years Used Date Smoking Tobacco: Never Smokeless Tobacco: Never Alcohol Use Standard Drinks/Week Comments No 0 (1 standard drink = 0.6 oz pure alcoho l) Sex Assigned at Date Recorded Female 12/20/2018 4:10 PM CDT documented as of this encounter Last Filed Vital Signs Vital Sign Reading Time Taken Comments Blood Pressure 130/70 06/03/2011 4:02 PM CDT Pulse 65 06/03/2011 4:02 PM CDT Temperature - - Respiratory Rate - - Oxygen Saturation - - Inhaled Oxygen Concentration - - Weight - - Height - - Body Mass Index - - documented in this encounter Progress Notes Carlota Landeros - 06/03/2011 4:19 PM CDT Reason for Visit: Post op interstim from 05/19/11 Clinical data: Ms. Sheikh is a 65 y.o female with hx of urinary urgency and UI who underwent interstim. She returns today in f/u. She is doing well however she had the machine off by accident and doesn't know how long that has been the case. On exam: Incision C/D/I A/P: 65 y/o female with the above -turned the interstim back on today and advised her to try different programs, each one for at least2 weeks -f/u as needed. Thank you for allowing me to participate in the care of Ms. Ramona Sheikh and I will keep you updated on her progress. Carlota Landeros MD 15 min spent with patient, >50% in discussion. documented in this encounter Plan of Treatment Upcoming Encounters Date Type Specialty Care Team Description 09/10/2022 Office Visit Internal Medicine LogeaisMargot MD [address] [place] [address] (Wo rk) documented as of this encounter Visit Diagnoses Diagnosis Urinary retention Retention of urine, unspecified Urgency of urination documented in this encounter Care Teams Melon Packer Relationship Specialty Start Date End Date Mehreen Johnston MD PhD PCP - General Family Practice 03/19/11 11/15/11 documented as of this encounter
--- OUTSIDE RECORDS SUMMARY | 2022-07-30 20:13 | XMS_ITS | Encounter Summary ---
:1945 Author Organization [facility] Address [address] [place] [address]. [place] [address] Care Team Providers Name Role Phone Mehreen Johnston MD PhD Primary Care Provider [phone] Reason for Visit Reason Onset Date Comments Pre Visit Planning - Done 08/03/2011 Encounter Details Date Type Department Care Team Description 08/03/2011 Telephone UROLOGY CLINIC AND Carlota Landeros, Pre Visit Planning - [facility] MD Done AND UROLOGIC CANCERS [address] [facility] 100 4TH FLOOR, [address] [address] [place] [address] Social History Tobacco Use Types [...] Office Visit Internal Medicine Logeais, MD Margot [address] [place] [address] (Wo rk) documented as of this encounter Visit Diagnoses Not on filedocumented in this encounter Care Teams Concrete Pipe Machine Operator Relationship Specialty Start Date End Date Mehreen Johnston MD PhD PCP - General Family Practice 03/19/11 documented as of this encounter
--- OUTSIDE RECORDS SUMMARY | 2022-07-30 20:13 | XMS_ITS | Encounter Summary ---
:1945 Author Organization [facility] Address [address] [place] [address]. [place] [address] Care Team Providers Name Role Phone Mehreen Johnston MD PhD Primary Care Provider [phone] Reason for Visit Auth/Cert - Closed Specialty Diagnoses / Procedures Referred By Contact Refer red To Contact Surgery Diagnoses Urinary urgency Ur Periop Procedures IMPLANT STIMULATOR AND LEADS SACRAL NERVE (STAGE ONE AND TWO) 2450 [place] [address] Phone: Fax: Referral ID Status Reason Start Date Expiration Date Visits Requ ested Visits Authorized [id number] Closed 05/01/2011 10/28/2011 1 1 Encounter Details Date Type Department Care Team Description 05/19/2011 Surgery [facility] Carlota Landeros, INSERTION, ELECTRODE PeriOp Services LEAD AND PULSE 2450 [facility] [address] [place] GENERATOR, [place] [address] 100 NEUROSTIMULATOR, SACRAL [phone] [place], [place] [address] (Wo rk) Surgery Details Date/Time Status Location [...] visit. You may call the Urology clinic [phone] during daytime hours or [phone] and ask to speak with the Urology resident window/distribution clerk after hours. General acute hospital Same-Day Surgery Adult Discharge Orders & Instructions [...] To contact a doctor, call or: ??? [phone] and ask for the resident window/distribution clerk for (answered 24 hours a day) ??? Emergency Department: [facility]: [phone] (TTY for hearing impaired: [phone]) [facility]: [phone] (TTY for hearing impaired: [phone]) documented in this encounter Medications at Time [...] of fluoroscopic imaging Surgeon: Carlota Landeros MD Dress Fitter(s): Arlette Fernandez Anesthesia: Local anesthesia with MAC [...] Office Visit Internal Medicine LogeaisMargot MD [address] [address] (Wo rk) Pending Results Name Type Priority [...] Pre-procedure documented in this encounter Care Teams Pile Driving Superintendent Relationship Specialty Start Date End Date Mehreen Johnston MD PhD PCP - General Family Practice 03/19/11 11/15/11 documented as of this encounter
--- OUTSIDE RECORDS SUMMARY | 2022-07-30 20:13 | XMS_ITS | Encounter Summary ---
:1945 Author Organization [place] Address [address] [place] [address]. [place] [address] Care Team Providers Name Role Phone Mehreen Johnston MD PhD Primary Care Provider Encounter Details Date Type Department Care Team Description 05/28/2011 Telephone UROLOGY CLINIC AND Francisco Landeros MD [facility] AND [address] [place] [address] [place] [address] [facility] 4TH FLOOR, [address] 420 [facility], [facility] [address] [phone] Social History Tobacco Use Types Packs/Day [...] Internal Medicine LogMargot sadler MD 909 [facility] 4TH [place], [place] [address] (Wo rk) documented as of this encounter Visit Diagnoses Not on filedocumented in this encounter Care Teams Material Clerk Relationship Specialty Start Date End Date Mehreen Johnston MD PhD PCP - General Family Practice 03/19/11 11/15/11 documented as of this encounter
--- OUTSIDE RECORDS SUMMARY | 2022-07-30 20:13 | XMS_ITS | Encounter Summary ---
:1945 Author Organization [facility] Address [address] [place] [address]. [place] [address] Care Team Providers Name Role Phone Mehreen Johnston MD PhD Primary Care Provider [phone] Reason for Visit Reason Comments Hip Pain Had hip replacement 2008 Encounter Details Date Type Department Care Team Description 10/19/2011 - Emergency [facility] Merrill Stock Hip pain, right 10/20/2011 Emergency Department MD Balbir [address] [place] [phone] [place], [place] [address] (Wo rk) Social History Tobacco Use Types [...] Comments Blood Pressure 130/69 10/19/2011 11:19 PM [place] Pulse 69 10/19/2011 11:19 PM [place] Temperature 36.5 ??C (97.7 ??F) 10/19/2011 11:19 PM [place] Respiratory Rate 18 10/19/2011 11:19 PM [place] Oxygen Saturation 100% 10/19/2011 11:19 PM [place] Inhaled Oxygen Concentration - - Weight 82.6 kg (182 lb) 10/19/2011 11:19 PM [place] Height 170.2 cm (5' 7) 10/19/2011 11:19 PM [place] Body Mass Index 28.51 10/19/2011 11:19 PM [place] documented in this encounter Discharge Instructions Discharge InstructionsMerrill Stock MD - 10/20/2011 12:12 AM [place] Try pain medication as needed No evidence for dislocation If you continue to have problems see your orthopedic surgeon. [place] documented in this encounter Medications at Time [...] history is provided by the patient. No first aid instructor was used. Ramona Sheikh is a 66 year old female who presents with right hip pain. 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 Rivera at [facility]. She has had similar pain before prior to a hip dislocation and is concerned that her hip may dislocate again. She was sitting atbathtub side shaving her legs when she had her first hip dislocation. She states that this episode of hip pain began tonight with intermittent sensation that hip would give out while walking. Able toambulate, no falls. She has [id number] Aleve. I have reviewed the Medications, Allergies, Past Medical and Surgical History, and Social History inthe [employer] system. Past Medical History Diagnosis Date ??? [...] (STAGE ONE AND TWO); Surgeon:ALEX ACUÑA;Location:[facility] OR No current facility-administered medications on [...] created on his behalf by Marilu Fernandez site medical director. The creation of this record is based on the scribe's personal observations and the provider's statements to her. This document has been reviewed and verified by Dr. Stock. [facility]) Emergency Department [address] [place] [address] Merrill Sotck MD 10/20/11 0138 [place] Bryce Walden RN - 10/19/2011 11:23 PM [...] is afraid that that is happening again. [place] documented in this encounter Plan of Treatment Upcoming Encounters Date Type Specialty Care Team Description 09/10/2022 Office Visit Internal Medicine Margot Branham MD [address] [address] (Wo rk) documented as of this encounter Visit Diagnoses Diagnosis Hip pain, right Pain in joint, pelvic region and thigh documented in this encounter Care Teams Herbarium Curator Relationship Specialty Start Date End Date Mehreen Johnston MD PhD PCP - General Family Practice 03/19/11 11/15/11 documented as of this encounter
--- OUTSIDE RECORDS SUMMARY | 2022-07-30 20:13 | XMS_ITS | Encounter Summary ---
:1945 Author Organization [facility] Address [address] [place] [address]. [place] [address] Care Team Providers Name Role Phone Mehreen Johnston MD PhD Primary Care Provider [phone] Reason for Visit Reason Comments RECHECK adjust the interstim Encounter Details Date Type Department Care Team Description 08/05/2011 Office Visit UROLOGY CLINIC AND Carlota Landeros, Urg ency of urination; [facility] Urinary retention PROSTATE AND UROLOGIC [address] [place] 100 [facility] [address] 4TH FLOOR, [address] 420 [facility] , [facility] 394 [place] [address] Social History Tobacco Use Types [...] Visit Internal Medicine Margot Branham MD [address] [place] [address] (Wo rk) documented as of this encounter Visit Diagnoses Diagnosis Urgency of urination Urinary retention Retention of urine, unspecified documented in this encounter Care Teams Short Filler Bunch Machine Operator Relationship Specialty Start Date End Date Mehreen Johnston MD PhD PCP - General Family Practice 03/19/11 11/15/11 documented as of this encounter
--- OUTSIDE RECORDS SUMMARY | 2022-07-30 20:13 | XMS_ITS | Encounter Summary ---
:1945 Author Organization [place] Address [address] [place] [address]. [place] [address] Care Team Providers Name Role Phone Unavailable Primary Care Provider Unavailable Encounter Details Date Type Department Care Team Description 11/16/2011 PRE VISIT [facility] Vanessa Mcgregor MD 8th Floor, Clinic 8A 420 [facility] 396 [place], [place] [address] [place] [address] 6 [facility] [place] [phone] Social History Tobacco Use Types Packs/Day [...] Pathology slides received: Date sent to pathology: OSAL MAN documented in this encounter Plan of Treatment Upcoming Encounters Date Type Specialty Care Team Description 09/10/2022 Office Visit Internal Medicine LogeaisMargot MD [address] [place] [phone] (Wo rk) documented as of this encounter Visit Diagnoses Not on filedocumented in this encounter
--- OUTSIDE RECORDS SUMMARY | 2022-07-30 20:13 | XMS_ITS | Encounter Summary ---
:1945 Author Organization [place] Address [address] [place] [address]. [place] [address] Care Team Providers Name Role Phone Mehreen Johnston MD PhD Primary Care Provider Reason for Visit Reason Onset Date Comments Previsit 08/12/2011 Encounter Details Date Type Department Care Team Description 08/12/2011 Telephone UROLOGY CLINIC AND Francisco Landeros MD [facility]visit [facility] [address] [place] 100 [facility] [address] 4TH FLOOR, [address] 420 [facility] 394 [place], [place] [phone] Social History Tobacco Use [...] is coming in for follow up interstim. OLL COORDINATOR documented in this encounter Plan of Treatment Upcoming Encounters Date Type Specialty Care Team Description 09/10/2022 Office Visit Internal Medicine LogeaMargot man MD 909 [facility] 4TH [place] [address] (Wo rk) documented as of this encounter Visit Diagnoses Not on filedocumented in this encounter Care Teams Director Of Reimbursement Relationship Specialty Start Date End Date Mehreen Johnston MD PhD PCP - General Family Practice 03/19/11 11/15/11 documented as of this encounter
--- OUTSIDE RECORDS SUMMARY | 2022-07-30 20:13 | XMS_ITS | Encounter Summary ---
:1945 Author Organization [place] Address [facility] [place] [facility]0 [facility] [place] [address] Care Team Providers Name Role Phone Unavailable Primary Care Provider Unavailable Reason for Visit Reason Comments Menopausal Sx Hot flashes. Bp medication q uestions and tinnitis Encounter Details Date Type Department Care Team Description 12/10/[address] [facility] [address]ime Vang [facility] MD Lisseth (Primary Dx) [address] PROFESSIONAL [place] 300 [place], [place] 3RD FLR,ALYSSA [phone] [place] [address] S [phone] [facility] 88 (Work) [place], [place] [address] [phone] Social History Tobacco Use Types Packs/Day Years Used Date Smoking Tobacco: Never Smokeless Tobacco: Never Alcohol Use Standard Drinks/Week Comments No 0 (1 standard drink = 0.6 oz pure alcoho l) Sex Assigned at Date Recorded Female 12/20/2018 4:10 PM CDT documented as of this encounter Last Filed Vital Signs Vital Sign Reading Time Taken Comments Blood Pressure 142/78 12/10/2011 11:05 AM PERSONAL COUNSELOR Pulse 62 12/10/2011 11:05 AM PERSONAL COUNSELOR Temperature - - Respiratory Rate - - Oxygen Saturation - - Inhaled Oxygen Concentration - - Weight 86.9 kg (191 lb 8 oz) 12/10/2011 11:05 AM PERSONAL COUNSELOR Height - - Body Mass Index 29.99 10/19/2011 11:19 PM PERSONAL COUNSELOR documented in this encounter Progress Notes Lisseth [...] atrophic. No enlargement of the Bartholin or Blue Diamond glands. Urethra and bladder are non-tender. Vagina [...] gas) And Probiotic - 5 billion CFU ONAL COUNSELOR documented in this encounter Plan of Treatment Upcoming Encounters Date Type Specialty Care Team Description 09/10/2022 Office Visit Internal Medicine LogeaMargot man MD [address] [place] [phone] (Wo rk) documented as of this encounter Visit Diagnoses Diagnosis Vaginal dryness - Primary Other specified symptom associated with female genital organs documented in this encounter
--- OUTSIDE RECORDS SUMMARY | 2022-07-30 20:13 | XMS_ITS | Encounter Summary ---
:1945 Author Organization [place] Address [address] [place] [address]. [place] [address] Care Team Providers Name Role Phone Mehreen Johnston MD PhD Primary Care Provider [phone] Encounter Details Date Type Department Care Team Description 05/19/2011 Anesthesia Event M [facility] Merrill Smith PeriOp Services MD Ángel [facility] [address] [place] [id number] [place], [place] [phone] (Wo rk) Anesthesia Record Procedure Summary [...] early admission to pre-op area: Other: PAC Resident/DRUPAL ARCHITECT Anesthesia Assessment: 65 y/o referred to discuss [...] Internal Medicine Logeais, MD Margot [address] [phone] (Wo rk) documented as of this encounter [...] Intra-op documented in this encounter Care Teams Soda Flaker Relationship Specialty Start Date End Date Mehreen Johnston MD PhD PCP - General Family Practice 03/19/11 11/15/11 documented as of this encounter
--- OUTSIDE RECORDS SUMMARY | 2022-07-30 20:13 | XMS_ITS | Encounter Summary ---
:1945 Author Organization [facility] [place] Address [address] [place] [address]. [place] [address] Care Team Providers Name Role Phone Unavailable Primary Care Provider Unavailable Encounter Details Date Type Department Care Team Description 12/09/2011 Orders Only Ear, Nose and Throat Vanessa Mcgregor MD Tinnitus (Primary Dx) Clinic 420 [facility] 8th Floor, Clinic 8A 396 [place], [place] Building [address] [place] [address] [place] [address] Social History Tobacco Use Types [...] Office Visit Internal Medicine Margot Branham MD [address] [place] [address] [phone] (Wo rk) documented as of this encounter Visit Diagnoses Diagnosis Tinnitus - Primary Unspecified tinnitus documented in this encounter
--- OUTSIDE RECORDS SUMMARY | 2022-07-30 20:13 | XMS_ITS | Encounter Summary ---
:1945 Author Organization [place] Address [address] [place] [address]. [place] [address] Care Team Providers Name Role Phone Mehreen Johnston MD PhD Primary Care Provider [phone] Reason for Visit Auth/Cert - Closed Specialty Diagnoses / Procedures Referred By Contact Refer red To Contact Surgery Diagnoses Urinary urgency Ur Periop Procedures IMPLANT STIMULATOR AND LEADS SACRAL NERVE (STAGE ONE AND TWO) [address] [place] [address] Phone: Fax: Referral ID Status Reason Start Date Expiration Date Visits Requ ested Visits Authorized [id number] Closed 05/01/2011 10/28/2011 1 1 Encounter Details Date Type Department Care Team Description 05/19/2011 Hospital Encounter UR PREOP/PHASE II Nakib Nissrine Urgency of urination [address] [place] [address] [address] [phone] [place] 100 [place] [address] Social History Tobacco Use Types [...] visit. You may call the Urology clinic [phone] during daytime hours or [phone] and ask to speak with the Urology resident transportation escort after hours. [facility] [place] Same-Day Surgery Adult Discharge Orders & Instructions [...] To contact a doctor, call or: ??? [phone] and ask for the resident transportation escort for (answered 24 hours a day) ??? Emergency Department: [facility]: [phone] (TTY for hearing impaired: [phone]) [facility]: [phone] (TTY for hearing impaired: [phone]) documented in this encounter Medications at Time [...] of fluoroscopic imaging Surgeon: Carlota Landeros MD Art Teacher(s): Arlette Fernandez Anesthesia: Local anesthesia with MAC [...] Visit Internal Medicine Margot Branham MD [address] [address] (Wo rk) Pending Results Name Type Priority [...] Pre-procedure documented in this encounter Care Teams Ambulatory Care Nurse Relationship Specialty Start Date End Date Mehreen Johnston MD PhD PCP - General Family Practice 03/19/11 documented as of this encounter
--- OUTSIDE RECORDS SUMMARY | 2022-07-30 20:13 | XMS_ITS | Encounter Summary ---
:1945 Author Organization [place] Address [address] [place] [address]. [place] [address] Care Team Providers Name Role Phone Unavailable Primary Care Provider Unavailable Encounter Details Date Type Department Care Team Description 12/10/[address] [facility] Vanessa Mcgregor MD 420 [facility] 396 [place], [place] [phone] DIAGNOSIS NOT YET Clinic Audiology Simeon Mcknight, AuD [address] [place] [phone] DEFINED (Primary Dx) [place] [phone] [facility] 283 8th Floor clinic [address] [place] [address] [place] [phone] Social History Tobacco Use Types Packs/Day Years Used Date Smoking Tobacco: Never Smokeless Tobacco: Never Alcohol Use Standard Drinks/Week Comments No 0 (1 standard drink = 0.6 oz pure alcoho l) Sex Assigned at Date Recorded Female 12/20/2018 4:10 PM CDT documented as of this encounter Progress Notes Rosy Oquendo - 12/11/2011 8:56 PM FARE REGISTER REPAIRER Addended by: ROSY OQUENDO on: 12/11/2011 Modules accepted: Orders, SmartSet REGISTER REPAIRER Simeon Mcknight - 12/10/2011 8:31 AM CST AUDIOLOGY REPORT SUMMARY: Audiology visit completed. See audiogram for results. RECOMMENDATIONS: Follow-up with ENT. Simeon Mcknight M.A. Audiology Fixture Designer [place] Licensed # [id number] I have reviewed and agree with the findings obtained by the Audiology Fixture Designer. Steven Andrade, FAAA Gold Prospector [place] #[id number] REGISTER REPAIRER documented in this encounter Plan of Treatment Upcoming Encounters Date Type Specialty Care Team Description 09/10/2022 Office Visit Internal Medicine Margot Branham MD [address] [phone] (Wo rk) documented as of this encounter Procedures Procedure Name Priority Date/Time Associated Diagnosis Comme nts AUDIOGRAM, ABR, OAE, Routine 12/10/2011 8:00 AM FARE REGISTER REPAIRER DIAGNOSIS NOT YET OR TYMP - HIM SCAN DEFINED documented in this encounter Results Audiogram - HIM Procedure Scan (12/10/2011 8:00 AM FARE REGISTER REPAIRER) Narrative This result has an attachment that is no t available. Vanessa Mcgregor MD PROCEDURES documented in this encounter Visit Diagnoses Diagnosis DIAGNOSIS NOT YET DEFINED - Primary documented in this encounter
--- OUTSIDE RECORDS SUMMARY | 2022-07-30 20:14 | XMS_ITS | Encounter Summary ---
:1945 Author Organization [facility] Address [address] [place] [address]. [place] [address] Care Team Providers Name Role Phone Unavailable Primary Care Provider Unavailable Encounter Details Date Type Department Care Team Description 10/07/2010 Office Visit-[facility] Women's Health Margot Petty Phillips-Wangensteen MD [address] 1st Floor, Clinic 300 6 [place], [place] [phone] (Wo rk) Social History Tobacco Use Types Packs/Day Years Used Date Smoking Tobacco: Never Alcohol Use Standard Drinks/Week Comments Not Asked 0 (1 standard drink = 0.6 oz pure alcoho l) Sex Assigned at Date Recorded Female 12/20/2018 4:10 PM CDT documented as of this encounter Progress Notes Margot Bustos - 10/07/2010 1:45 PM CST Sharepoint Admin: Juli Margot Status: Final Encounter: 07 Oct 2010 Type: [facility] Visit Reason For Visit YIMI GARCIA is a 65 year old female who presents today for a consult. Pt had an MRI done recently and a mass was noted on her right ovary. Do you have any other appointments, tests or procedures within the [facility] system for this same day? No. HPI 65 yo P1001 with h/o fibroid uterus here to discuss possible adnexal mass. Patient has a long h/o fibroid uterus which was seen at time of her c/s and was described as grapefruit size. She has been a patient of Dr. Soria's at [facility] and had an u/s there in 2008 [...] Meds MIRALAX POWD 3350NF;17 grams tid; Rx [place] 3 1000 MG Capsule;TAKE 2 CAPSULE TWICE [...] and patient declined. Vital Signs Recorded by [email or web address] on 07 Oct 2010 01:43 PM BP:126/67, [...] PM - MRI PELVIS W&W/O Principal Result Heel Finisher: CHRIS JOHNSTON DR&& MRI PELVIS CLINICAL HISTORY: [...] and I agree with findings. Performed at: [facility]. Assessment Pedunculated fibroid No evidence [...] By: Margot Bustos M.D.,FACOG; 10/14/2010 9:20 PM [facility] documented in this encounter Plan of Treatment Upcoming Encounters Date Type Specialty Care Team Description 09/10/2022 Office Visit Internal Medicine LogeaisMargot MD [address] [phone] (Wo rk) documented as of this encounter Visit Diagnoses Not on filedocumented in this encounter
--- OUTSIDE RECORDS SUMMARY | 2022-07-30 20:14 | XMS_ITS | Encounter Summary ---
:1945 Author Organization [facility] Address [address] [place] [address]. [place] [address] Care Team Providers Name Role Phone Unavailable Primary Care Provider Unavailable Encounter Details Date Type Department Care Team Description 11/19/2010 Office Visit-[facility] INTERFACE [facility] DEPT Provider, [facility] Nurs e Social History Tobacco Use Types Packs/Day Years Used Date Smoking Tobacco: Never Alcohol Use Standard Drinks/Week Comments Not Asked 0 (1 standard drink = 0.6 oz pure alcoho l) Sex Assigned at Date Recorded Female 12/20/2018 4:10 PM CDT documented as of this encounter Progress Notes Provider, [facility] Nurse - 11/19/2010 3:40 PM CST Preschool Teacher Aide: Wagner Joiner Status: Unsigned Encounter: 19 Nov 2010 Type: Chart Note Date: 19 Nov 2010 3:39 PM BUSINESS ACCOUNT LEADER, Recorded By: Wagner Joiner Calling For: Urology [...] Internal Medicine Margot Branham MD [address] [phone] (Wo rk) documented as of this encounter Visit Diagnoses Not on filedocumented in this encounter
--- OUTSIDE RECORDS SUMMARY | 2022-07-30 20:14 | XMS_ITS | Encounter Summary ---
:1945 Author Organization [place] Address [address] [place] [address]. [place] [address] Care Team Providers Name Role Phone Mehreen Johnston MD PhD Primary Care Provider [phone] Encounter Details Date Type Department Care Team Description 05/18/2011 Telephone UROLOGY CLINIC AND [facility] AND Sherice mcrae PA-C UROLOGIC CANCERS 3900 [place] [address] 4TH FLOOR, [address] 420 [facility], [facility] 394 [place] [phone] Social History Tobacco Use Types Packs/Day [...] Visit Internal Medicine Margot Branham MD [address] [address] (Wo rk) documented as of this encounter Visit Diagnoses Not on filedocumented in this encounter Care Teams Dehydrating Press Operator Relationship Specialty Start Date End Date Mehreen Johnston MD PhD PCP - General Family Practice 03/19/11 11/15/11 documented as of this encounter
--- OUTSIDE RECORDS SUMMARY | 2022-07-30 20:14 | XMS_ITS | Encounter Summary ---
:1945 Author Organization [place] Address 2450 [facility] [place] [address] Care Team Providers Name Role Phone Mehreen Johnston MD PhD Primary Care Provider [phone] Encounter Details Date Type Department Care Team Description 05/13/2011 Telephone [facility] Quita Salguero, Emergency Department INFANT ROOM TEACHER 2450 [facility] 3900 [place] [address] [place], [place] [phone] (Wo rk) Social History Tobacco Use Types [...] Office Visit Internal Medicine Margot Branham MD [address] [place] [phone] (Wo rk) documented as of this encounter Visit Diagnoses Not on filedocumented in this encounter Care Teams Tandem Mill Operator Relationship Specialty Start Date End Date Mehreen Johnston MD PhD PCP - General Family Practice 03/19/11 11/15/11 documented as of this encounter
--- OUTSIDE RECORDS SUMMARY | 2022-07-30 20:14 | XMS_ITS | Encounter Summary ---
:1945 Author Organization [place] Address [address] [place] [address]. [place] [address] Care Team Providers Name Role Phone Unavailable Primary Care Provider Unavailable Encounter Details Date Type Department Care Team Description 12/05/2010 Abstract M [facility] Info Mgmt [address], Provider Srvcs 2450 [place] [address] Social History Tobacco Use Types [...] Office Visit Internal Medicine LogeaisMargot MD [address] [phone] (Wo rk) documented as of this encounter Visit Diagnoses Not on filedocumented in this encounter
--- OUTSIDE RECORDS SUMMARY | 2022-07-30 20:14 | XMS_ITS | Encounter Summary ---
:1945 Author Organization [facility] Address [address] [place] [address]. [place] [address] Care Team Providers Name Role Phone Unavailable Primary Care Provider Unavailable Encounter Details Date Type Department Care Team Description 11/12/2010 Office Visit-[facility] INTERFACE [facility] DEPT Provider, [facility] Nurs e Social History Tobacco Use Types Packs/Day Years Used Date Smoking Tobacco: Never Alcohol Use Standard Drinks/Week Comments Not Asked 0 (1 standard drink = 0.6 oz pure alcoho l) Sex Assigned at Date Recorded Female 12/20/2018 4:10 PM CDT documented as of this encounter Progress Notes Provider, [facility] Nurse - 11/12/2010 11:15 AM CST Sill Worker: Jai Harvey Status: Signed Encounter: 12 Nov [...] By: Jai Harvey CMA; 11/12/2010 11:26 AM LAW OFFICE RECEPTIONIST. Provider, [facility] Nurse - 11/12/2010 11:15 AM CST Sill Worker: Wes Jai Status: Final Encounter: 12 Nov 2010 Type: Rooming Note Reason For Visit Patient is here for cystoscopy-hematuria/urinary retention Do you have any other appointments, tests or procedures within the [facility] system for this same day? No. Pain [...] patient. MIRALAX POWD 3350NF;17 grams tid; Rx [place] 3 1000 MG Capsule;TAKE 2 CAPSULE TWICE [...] By: Jai Harvey CMA; 11/12/2010 11:25 AM LAW OFFICE RECEPTIONIST. documented in this encounter Plan of Treatment Upcoming Encounters Date Type Specialty Care Team Description 09/10/2022 Office Visit Internal Medicine Margot Branham MD [address] [place] [phone] (Wo rk) documented as of this encounter Visit Diagnoses Not on filedocumented in this encounter
--- OUTSIDE RECORDS SUMMARY | 2022-07-30 20:14 | XMS_ITS | Encounter Summary ---
:1945 Author Organization [facility] Address [address] [place] [address]. [place] [address] Care Team Providers Name Role Phone Mehreen Johnston MD PhD Primary Care Provider [phone] Reason for Visit Reason Comments Pre-Op Exam Bladder stimulator surgery o n 05/[address] Landeros Encounter Details Date Type Department Care Team Description 05/12/2011 Office Visit [facility] Cirilo Vang, Pre-operative clearance Mason Montanez MD (Primary Dx) [address] 1st Floor, Clinic 1C [address] [place] [address] [phone] Social History Tobacco Use Types Packs/Day Years Used Date Smoking Tobacco: Never Smokeless Tobacco: Never Alcohol Use Standard Drinks/Week Comments No 0 (1 standard drink = 0.6 oz pure alcoho l) Sex Assigned at Date Recorded Female 12/20/2018 4:10 PM CDT documented as of this encounter Last Filed Vital Signs Vital Sign Reading Time Taken Comments Blood Pressure 120/66 05/12/2011 3:07 PM CDT Pulse 57 05/12/2011 3:07 PM CDT Temperature 36.7 ??C (98.1 ??F) 05/12/2011 3:07 PM CDT Respiratory Rate - - Oxygen Saturation - - Inhaled Oxygen Concentration - - Weight 86.2 kg (190 lb) 05/12/2011 3:07 PM CDT Height 167.6 cm (5' 6) 05/12/2011 3:07 PM CDT Body Mass Index 30.67 05/12/2011 3:07 PM CDT documented in this encounter Progress Notes Lisseth Vang MD - 05/13/2011 4:40 PM CDT Component (Lab Inquiry) Value Range Ventricular Rate 59 BPM Atrial Rate [address] Interval 166 ms QRS Duration 96 ms QT 422 ms QTc 417 ms P [place] 54 degrees R AXIS 55 degrees T [place] 56 degrees Interpretation ECG Sinus bradycardia Interpretation ECG Otherwise normal ECG Interpretation ECG When compared with ECG of 05-OCT-2008 11:54, Interpretation ECG No significant change was found Lisseth Vang MD - 05/11/2011 10:16 PM CDT Yimi Garcia is here for preoperative history and physical: Scheduled Phase II Interstim:Implant Stimulator and Leads sacral nerve by Dr. Landeros on 05/19/2011. HPI: Mixed incontinence urge and stress with no detrusor contraction - did a trail with stimulator and itwas determined that a implanted stimulator would be beneficial. Patient is somewhat skeptical. Has anumber of questions about her head tremor, her need for HTN medication, red face when she exercises,vitamin D and concerns about anesthesia. She reports a history of intolerance to anesthesia and has become very ill with severe dizziness and vomiting after anesthesia. ROS: General: weight gain and night sweats Head/Eyes: none Ears/Nose/Throat: ringing in ears Cardiovascular: high blood pressure Respiratory: none Gastrointestinal: none Breast: none Genitourinary: incontinence Sexual Function: none Musculoskeletal: joint pain Skin: none Neurological: none Mental Health: none Endocrine: none PROBLEM LIST: Patient Active Problem List Diagnoses Code ??? Elevated Blood Pressure Reading without Diagnosis of Hypertension 796.2 ??? CARDIOVASCULAR SCREENING; LDL GOAL LESS THAN 130 V81.2MR ??? Urinary retention 788.20B ??? Urgency of urination 788.63 ??? Mixed incontinence urge and stress (male)(female) 788.33 PAST MEDICAL HISTORY: 1) 1) 1 para 1 status post in 1978. Has uterine fibroids. Not on hormone therapy -stopped hans oseguera in july 2009. Will use topical estrogen cream. 2) Osteoarthritis of the right hip Minimal [...] for her colonoscopy. 10) No Blood Transfusions PAST SURGICAL HISTORY: 1) Hip replacement 09/09 2) Status post breast reduction 1996. 3) FAMILY HISTORY: Strong Family HX of colon Cancer. Current outpatient prescriptions Medication Sig ??? estradiol (ESTRACE) 0.1 MG/GM vaginal cream [...] been taking 2 at night lately. Allergies: Morphine, Codeine, Nickel, Latex and Tape - resaction to anesthesia VITALS: Blood pressure 120/66, pulse 57, temperature 98.1 ??F (36.7 ??C), height 1.676 m (5' 6), weight 86.183 kg (190 lb).Body mass index is 30.67 kg/(m^2). PHYSICAL EXAM: Constitutional: Obese, wellappearing woman in no acute distress. Psychological:anxious about surgery. Eyes: anicteric, normal extra-ocular movements, pupils are [...] wheezes or crackles, normal breath sounds. Breast: N/A Gastrointestinal: positive bowel sounds, nontender, no hepatosplenomegaly, no masses. No guarding orrebound. Genitourinary: N/A Lymphatic: no lymphadenopathy. Musculoskeletal: full range of motion Skin: no concerning lesions, no jaundice. Neurological:normal gait, no tremor. LABS: Results for YIMI GARCIA ( ) as of 05/11/2011 22:20 Ref. Range 01/02/2011 07:33 Sodium Latest Range: 133-144 mmol/L 142 Potassium Latest Range: 3.4-5.3 mmol/L 4.7 Chloride Latest Range: 94-109 mmol/L 107 Carbon Dioxide Latest Range: 20-32 mmol/L 30 Urea Nitrogen Latest Range: 7-30 mg/dL 15 Creatinine Latest Range: 0.52-1.04 mg/dL 0.86 GFR Estimate Latest Range: Low: >60 mL/min/1.7m2 66 GFR Estimate If Black Latest Range: Low: >60 mL/min/1.7m2 80 Glucose Latest Range: 60-99 mg/dL 94 Calcium Latest Range: 8.5-10.4 mg/dL 9.3 Anion Gap Latest Range: 6-17 mmol/L 6 Rubella IgG Antibody No range found >500... TSH Latest Range: 0.4-5.0 mU/L 1.30 Hemoglobin Latest Range: 11.7-15.7 g/dL 14.6 CRP Cardiac Risk No range found 3.3 DIAGNOSTICS: EKG: appears normal, NSR, sinus bradycardia, normal axis, normal intervals, no acute ST/T changes c/w ischemia, no LVH by voltage criteria, unchanged from previous tracings IMPRESSION: 1. Surgery scheduled on 05/19 at 9:30 am at [facility] for Phase II Interstim:Implant Stimulator and Leads sacral nerve by Dr. Landeros on 05/19/2011. 2. Patient is LOW risk for surgery and perioperative complications. 3. Anesthesia intolerance with dizziness and vomiting with previous surgeries. RECOMMENDATIONS: Below recommendations were reviewed with patient 1. Advised that she call the urology department so she know where and when to go for surgery 2. Approval given to proceed with proposed procedure, without further diagnostic evaluation 3. Patient requesting that she she anesthesia for consult and I will arrange for that visit next week. 4. Encouraged she takes Vitamin D 1000 IU daily and check her Vitamin d level in 2 months Electronically by: Lisseth Vang MD ([phone]) documented in this encounter Plan of Treatment Upcoming Encounters Date Type Specialty Care Team Description 09/10/2022 Office Visit Internal Medicine Margot Branham MD [address] [place] [phone] (Wo rk) documented as of this encounter Procedures Procedure Name Priority Date/Time Associated Diagnosis Comme nts EKG 12-LEAD, Routine 05/12/2011 2:56 PM Pre-operative Results for this TRACING ONLY CDT clearance procedure are i n the results section. EKG 12 LEAD Routine 05/12/2011 documented in this encounter Results EKG 12-Lead, (In-Clinic) Tracing Only w/o Interp & Report (05/12/2011 2:56 PM CDT) Component Value Ref Range Test Analysis Performed Pathologis t Method Time At Signature Ventricular Rate 59 BPM RADIOLOGY RESULTS Atrial Rate [address] Interval 166 ms RADIOLOGY RESULTS QRS Duration 96 ms RADIOLOGY RESULTS QT 422 ms RADIOLOGY RESULTS QTc 417 ms RADIOLOGY RESULTS P [place] 54 degrees RADIOLOGY RESULTS R AXIS 55 degrees RADIOLOGY RESULTS T [place] 56 degrees RADIOLOGY RESULTS Interpretation Sinus RADIOLOGY ECG bradycardia RESULTS Interpretation Otherwise RADIOLOGY ECG normal ECG RESULTS Interpretation When compared RADIOLOGY ECG with ECG of RESULTS 05-OCT-2008 11:54, Interpretation No significant RADIOLOGY ECG change was RESULTS found Specimen (Source) Anatomical Collection Method Collection Time Re ceived Time Location / / Volume Laterality 05/12/2011 2:56 PM CDT Lisseth Vang MD ECG ORDERABLES Performing Organization Address City/State/ZIP Code Phon e Number RADIOLOGY RESULTS EKG 12 LEAD (05/12/2011) Narrative This result has an attachment that is no t available. Provider Abstract ECG ORDERABLES documented in this encounter Visit Diagnoses Diagnosis Pre-operative clearance - Primary Preoperative examination, unspecified documented in this encounter Care Teams Physician Locums Urgent Care Relationship Specialty Start Date End Date Mehreen Johnston MD PhD PCP - General Family Practice 03/19/11 documented as of this encounter
--- OUTSIDE RECORDS SUMMARY | 2022-07-30 20:14 | XMS_ITS | Encounter Summary ---
:1945 Author Organization [facility] Address [address] [place] [address]. [place] [address] Care Team Providers Name Role Phone Unavailable Primary Care Provider Unavailable Encounter Details Date Type Department Care Team Description 09/25/2010 Office Visit-[facility] INTERFACE P DEPT Provider, [facility] Nurs e Social History Tobacco Use Types Packs/Day Years Used Date Smoking Tobacco: Never Alcohol Use Standard Drinks/Week Comments Not Asked 0 (1 standard drink = 0.6 oz pure alcoho l) Sex Assigned at Date Recorded Female 12/20/2018 4:10 PM CDT documented as of this encounter Progress Notes Provider, [facility] Nurse - 09/25/2010 10:00 AM CST Mushroom Sorter Grader: Tonya Lorenzo Status: Final Encounter: 25 Sep 2010 Type: AMB Nurse Triage Note Informant Time of call: 16:27 Date of call: 09/25/2010 Home [phone] Caller: Patient REASON FOR CALL: Other: Patient has questions about her follow up with Dr. Landeros. She saw Dr. Landeros at the [facility]. She was told she will be following up with Dr. Landeros at the Urology Clinic. Plan Protocol Reference: N/A Protocol Used : N/A Plan: Patient was given the phone number to the Urology Clinic . Coun/Edu Caller verbalized understanding of plan Caller agrees with advice given. Signature Signed By: Tonya Lorenzo R.N.; 09/25/2010 4:29 PM HARPSICHORD MAKER. documented in this encounter Plan of Treatment Upcoming Encounters Date Type Specialty Care Team Description 09/10/2022 Office Visit Internal Medicine LogMargot sadler MD [address] [place] [phone] (Wo rk) documented as of this encounter Visit Diagnoses Not on filedocumented in this encounter
--- OUTSIDE RECORDS SUMMARY | 2022-07-30 20:14 | XMS_ITS | Encounter Summary ---
:1945 Author Organization [facility] Address [address] [place] [address] Care Team Providers Name Role Phone Unavailable Primary Care Provider Unavailable Encounter Details Date Type Department Care Team Description 12/02/2010 Historic Results [facility] Anh Costa, Physicians Heart NECK BAND SETTER PAUL Mota [facility] 4th Floor, Clinic [address]B [address] [phone] Social History Tobacco Use [...] Internal Medicine Logeais, MD Margot [address] [phone] (Wo rk) documented as of this encounter Procedures Procedure Name Priority Date/Time Associated Comments Diagnosis SEND OUTS MISC TEST Routine 12/02/2010 7:47 AM Re sults for this FISHING TOOL SUPERVISOR procedure are i n the results section. LIPOPROTEIN A Routine 12/02/2010 7:47 AM Results for this FISHING TOOL SUPERVISOR procedure are i n the results section. LIPID REFLEX TO Routine 12/02/2010 7:47 AM Result s for this DIRECT LDL PANEL FISHING TOOL SUPERVISOR procedure a re in the results section. AST Routine 12/02/2010 7:47 AM Results f or this FISHING TOOL SUPERVISOR procedure are i n the results section. ALT Routine 12/02/2010 7:47 AM Results f or this FISHING TOOL SUPERVISOR procedure are i n the results section. documented in this encounter Results ALT (12/02/2010 7:47 AM FISHING TOOL SUPERVISOR) athologist Signature ALT 28 0 - 50 U/L MISYS Specimen Anatomical Collection Method Collection Time Receive d Time (Source) Location / / Volume Laterality 12/02/2010 7:47 AM 1 7:41 FISHING TOOL SUPERVISOR AM FISHING TOOL SUPERVISOR Anh Costa APRN, CNP LAB - BLOOD ORDERABLES Performing Organization Address [facility] Phon e Number MISYS AST (12/02/2010 7:47 AM FISHING TOOL SUPERVISOR) P athologist Signature AST 40 0 - 45 U/L MISYS Specimen Anatomical Collection Method Collection Time Receive d Time (Source) Location / / Volume Laterality 12/02/2010 7:47 AM 1 7:41 FISHING TOOL SUPERVISOR AM FISHING TOOL SUPERVISOR Anh Costa APRN, CNP LAB - BLOOD ORDERABLES Performing Organization Address [facility] Phon e Number MISYS (ABNORMAL) Lipid panel reflex to direct LDL (12/02/2010 7:47 AM FISHING TOOL SUPERVISOR) P athologist Signature Cholesterol 225 (H) 0 [...] Volume Laterality 12/02/2010 7:47 AM 1 7:41 FISHING TOOL SUPERVISOR AM FISHING TOOL SUPERVISOR Anh Costa APRN, CNP LAB - BLOOD ORDERABLES Performing Organization Address [facility] Phon e Number MISYS Lipoprotein A (12/02/2010 7:47 AM FISHING TOOL SUPERVISOR) P athologist Signature Lipoprotein A 18 <30 mg/dL MISYS Comment: Lp(a) greater than 30 mg/dl pos es increased risk for cardiac disease. Specimen Anatomical Collection Method Collection Time Receive d Time (Source) Location / / Volume Laterality 12/02/2010 7:47 AM 1 7:41 FISHING TOOL SUPERVISOR AM FISHING TOOL SUPERVISOR Anh Costa APRN, CNP LAB - BLOOD ORDERABLES Performing Organization Address [facility] Phon e Number MISYS Send outs misc test (12/02/2010 7:47 AM FISHING TOOL SUPERVISOR) Patholo gist Method Time Signature Test Name NMR LIPOPROFILE MISYS Send Outs Serum MISYS Misc Test Specimen Normal Range SEE REPORT MISYS for Send Outs Misc Test Lab Scanned Laboratory MISYS Result Scanned Result [id number] Specimen Anatomical Collection Method Collection Time Receive d Time (Source) Location / / Volume Laterality 12/02/2010 7:47 AM 1 7:41 FISHING TOOL SUPERVISOR AM FISHING TOOL SUPERVISOR Anh Costa APRN, CNP LAB - BLOOD ORDERABLES Performing Organization Address City/[facility]/ZIP Code Phon e Number MISYS documented in this encounter Visit Diagnoses Not on filedocumented in this encounter
--- OUTSIDE RECORDS SUMMARY | 2022-07-30 20:14 | XMS_ITS | Encounter Summary ---
:1945 Author Organization [facility] Address [address] [place] [address]. [place] [address] Care Team Providers Name Role Phone Mehreen Johnston MD PhD Primary Care Provider [phone] Encounter Details Date Type Department Care Team Description 05/18/2011 Telephone UROLOGY CLINIC AND Lo Burrell FOR PROSTATE AND Sherice mcrae PA-C UROLOGIC [facility]ERS [address] [place] [address] 4TH FLOOR, [phone] [facility], [facility] [address] [phone] Social History Tobacco Use Types Packs/Day [...] Visit Internal Medicine Margot Branham MD [address] [place] [phone] (Wo rk) documented as of this encounter Visit Diagnoses Not on filedocumented in this encounter Care Teams Hand Plate Stacker Relationship Specialty Start Date End Date Mehreen Johnston MD PhD PCP - General Family Practice 03/19/11 11/15/11 documented as of this encounter
--- OUTSIDE RECORDS SUMMARY | 2022-07-30 20:14 | XMS_ITS | Encounter Summary ---
:1945 Author Organization [facility] Address [address] [place] [address]. [place] [address] Care Team Providers Name Role Phone Unavailable Primary Care Provider Unavailable Reason for Visit Reason Onset Date Comments Results 01/14/2011 Encounter Details Date Type Department Care Team Description 01/14/2011 Telephone Women's Health Mehreen Green MD Results Mason PhD [address] 1st Floor, Clinic [address] [place], [place] [address] [place] [address] [place] [phone] Social History Tobacco Use Types Packs/Day Years [...] Visit Internal Medicine Logeais, MD Margot [address] [address] (Wo rk) documented as of this encounter Visit Diagnoses Not on filedocumented in this encounter
--- OUTSIDE RECORDS SUMMARY | 2022-07-30 20:14 | XMS_ITS | Encounter Summary ---
:1945 Author Organization [facility] Address [address] [place] [address]. [place] [address] Care Team Providers Name Role Phone Unavailable Primary Care Provider Unavailable Reason for Visit Reason Comments Physical annual exam Encounter Details Date Type Department Care Team Description 12/29/2010 Office Visit [facility] Mehreen Green Elevated blood pressure read ing without diagnosis of hypertension; Mason Butler MD P hD Disorder of bone and cartilage, unspecif ied; Building [address] [place] [address] Thyroid disorder screening; 1st Floor, Clinic 1C [place], [place] Delinquent immunization stat us; [address] [place] [address] SE [phone] [place], [place] (Work) [phone] Social History Tobacco Use [...] the fellow note and plan of care. .[facility] CURRENT MEDICATIONS: Current outpatient prescriptions Medication Sig [...] distrution. No enlargement of the [place] or [place] glands. Urethra and bladder are non- tender. [...] Office Visit Internal Medicine LogeaisMargot MD [address] [place] [phone] (Wo rk) documented as of this encounter Procedures Procedure Name Priority Date/Time Associated Diagnosis Comme nts ROUTINE UA WITH Routine 12/29/2010 8:19 PM Elevated blood Resu lts for this MICROSCOPIC CDT pressure reading procedure a re in without diagnosis of the res ults hypertension section. documented in this encounter Results URINALYSIS (12/29/2010 8:19 PM CDT) Component Value Ref Test Analysis Performed At [facility] gist Range Method Time Signature Color Urine Light Yellow [facility] Appearance Urine Clear [facility] Glucose Urine Negative NEG [facility] mg/dL [facility] Bilirubin Urine Negative NEG [facility] Ketones Urine Negative NEG [facility] mg/dL [facility] Specific [place] 1.005 1.003 - [facility] Urine 1.035 [facility] [...] Phon e Number [facility] [address] [place], [place] [phone] [place] [address] [facility] documented in this encounter Visit Diagnoses Diagnosis Elevated blood pressure reading without diagnosis of hypertension Disorder of bone and cartilage, unspecif ied Thyroid disorder screening Screening for thyroid disorder Delinquent immunization status Personal history of underimmunization st atus Anemia Anemia, unspecified documented in this encounter
--- OUTSIDE RECORDS SUMMARY | 2022-07-30 20:14 | XMS_ITS | Encounter Summary ---
:1945 Author Organization [facility] Address [address] [place] [address]. [place] [address] Care Team Providers Name Role Phone Unavailable Primary Care Provider Unavailable Encounter Details Date Type Department Care Team Description 09/25/2010 Office Visit-[facility] Women's Health Carlota Duvall MD [facility] [address] [facility] 100 1st Floor, Clinic [address] [place] [address] [place] [phone] Social History Tobacco Use Types Packs/Day Years Used Date Smoking Tobacco: Never Alcohol Use Standard Drinks/Week Comments Not Asked 0 (1 standard drink = 0.6 oz pure alcoho l) Sex Assigned at Date Recorded Female 12/20/2018 4:10 PM CDT documented as of this encounter Progress Notes Carlota Landeros - 09/25/2010 10:00 AM CST Storage Architect: Carlota Landeros Status: Final Encounter: 25 Sep 2010 Type: [facility] Visit Reason For Visit Patient is here for concerns or urine retention & blood in urine Do you have any other appointments, tests or procedures within the [facility] system for this same day? No. HPI [...] Meds MIRALAX POWD 3350NF;17 grams tid; Rx Pinole 3 1000 MG Capsule;TAKE 2 CAPSULE TWICE [...] By: Carlota Landeros M.D.; 09/25/2010 11:01 AM TRAFFIC WORKER. FIC WORKER documented in this encounter Plan of Treatment Upcoming Encounters Date Type Specialty Care Team Description 09/10/2022 Office Visit Internal Medicine Margot Branham MD [address] [phone] (Wo rk) documented as of this encounter Visit Diagnoses Not on filedocumented in this encounter
--- OUTSIDE RECORDS SUMMARY | 2022-07-30 20:14 | XMS_ITS | Encounter Summary ---
:1945 Author Organization [facility] Address [address] [place] [address] Care Team Providers Name Role Phone Mehreen Johnston MD PhD Primary Care Provider [phone] Reason for Visit Reason Comments PPD Reading 0 mm negative results Encounter Details Date Type Department Care Team Description 04/17/2011 Office Visit Gynecologic Cancer Mehreen Johnston MD PhD [address] [place] [address] [phone] Preventative health Center Nurse, [facility] care (Primary Dx) [facility] 1st Floor, Clinic [address] [place] [phone] Social History Tobacco Use Types Packs/Day Years [...] Office Visit Internal Medicine Margot Branham MD [address] [place] [address] [phone] (Wo rk) documented as of this encounter Visit Diagnoses Diagnosis Preventative health care - Primary Routine general medical examination at a health care facility documented in this encounter Care Teams Stacker And Sorter Operator Relationship Specialty Start Date End Date Mehreen Johnston MD PhD PCP - General Family Practice 03/19/11 11/15/11 documented as of this encounter
--- OUTSIDE RECORDS SUMMARY | 2022-07-30 20:14 | XMS_ITS | Encounter Summary ---
:1945 Author Organization [place] Address [address] [place] [address]. [place] [address] Care Team Providers Name Role Phone Unavailable Primary Care Provider Unavailable Encounter Details Date Type Department Care Team Description 01/01/2011 Orders Only Women's Health Mehreen Green Elevated blood pressure read ing without diagnosis of hypertension (Primary Dx); Mason Butler MD P hD Thyroid disorder screening; [address] Anemia; 1st Floor, Clinic [address] [place] [address] Delinquent immunization stat [address] [phone] (Work) [phone] Social History Tobacco Use Types Packs/Day Years [...] Visit Internal Medicine Margot Branham MD [address] [place] [address] (Wo rk) documented as of this encounter [...] Method Time Signature Rubella POORNIMA >500 IU/mL [facility] IgG Interpretation: ??Positive, Immune [facility] LABS Specimen Anatomical Collection Method Collection Time Receive d Time (Source) Location / / Volume Laterality Blood specimen 01/02/2011 7:33 AM 011 7:35 (specimen) CDT AM CDT Mehreen Johnston MD PhD LAB - BLOOD ORDERABLES Performing Organization Address City/[facility] Code Phon e Number [address] LABS CRP Cardiac Risk (01/02/2011 7:33 AM CDT) P athologist Signature CRP Cardiac 3.3 mg/L [facility] LABS Comment: Reference Values: Low Risk: ? <1.0 mg/L Average Risk: ? 1.0-3.0 mg/L High Risk: ?>3.0 mg/L Acute Inflammation: >8.0 mg/L Specimen Anatomical Collection Method Collection Time Receive d Time (Source) Location / / Volume Laterality Blood specimen 01/02/2011 7:33 AM 011 7:35 (specimen) CDT AM CDT Mehreen Johnston MD PhD LAB - BLOOD ORDERABLES Performing Organization Address City/[facility] Code Phon e Number [address] LABS Basic Metabolic Panel (01/02/2011 7:33 AM CDT) P athologist Signature Sodium 142 133 - 144 [facility] mmol/L CAMPUS LABS Potassium 4.7 3.4 - 5.3 [facility] mmol/L CAMPUS LABS Chloride 107 94 - 109 [facility] mmol/L CAMPUS LABS Carbon Dioxide 30 20 - 32 [facility] mmol/L CAMPUS LABS Anion Gap 6 6 - 17 [facility] mmol/L CAMPUS LABS Glucose 94 60 - 99 [facility] mg/dL CAMPUS LABS Urea Nitrogen 15 7 - 30 [facility] mg/dL CAMPUS LABS Creatinine 0.86 0.52 - [facility] 1.04 mg/dL CAMPUS LABS GFR Estimate 66 >60 [facility] mL/min/1.7 CAMPUS LABS m2 GFR Estimate If 80 >60 [facility] mL/min/1.7 CAMPUS LABS m2 Calcium 9.3 8.5 - 10.4 [facility] mg/dL CAMPUS LABS Specimen Anatomical Collection Method Collection Time Receive d Time (Source) Location / / Volume Laterality Blood specimen 01/02/2011 7:33 AM 011 7:35 (specimen) CDT AM CDT Mehreen Johnston MD PhD LAB - BLOOD ORDERABLES Performing Organization Address City/[facility]/ZIP Code Phon e Number [facility] [address] LABS Hemoglobin (01/02/2011 7:33 AM CDT) P athologist Signature Hemoglobin 14.6 11.7 - 15.7 [facility] g/dL CAMPUS LABS Specimen Anatomical Collection Method Collection Time Receive d Time (Source) Location / / Volume Laterality Blood specimen 01/02/2011 7:33 AM 011 7:35 (specimen) CDT AM CDT Mehreen Johnston MD PhD LAB - BLOOD ORDERABLES Performing Organization Address City/State/ZIP Code Phon e Number [facility] [address] LABS TSH (01/02/2011 7:33 AM CDT) P athologist Signature TSH 1.30 0.4 - 5.0 [facility] mU/L [place] LABS Specimen Anatomical Collection Method Collection Time Receive d Time (Source) Location / / Volume Laterality Blood specimen 01/02/2011 7:33 AM 011 7:35 (specimen) CDT AM CDT Mehreen Johnston MD PhD LAB - BLOOD ORDERABLES Performing Organization Address City/State/ZIP Code Phon e Number [facility] [address] [place] [address] [facility] LABS documented in this encounter Visit Diagnoses Diagnosis Elevated blood pressure reading without diagnosis of hypertension - Primary Thyroid disorder screening Screening for thyroid disorder Anemia Anemia, unspecified Delinquent immunization status Personal history of underimmunization st atus documented in this encounter
--- OUTSIDE RECORDS SUMMARY | 2022-07-30 20:14 | XMS_ITS | Encounter Summary ---
:1945 Author Organization [place] Address [address] [place] [address]. [place] [address] Care Team Providers Name Role Phone Mehreen Johnston MD PhD Primary Care Provider [phone] Reason for Visit Reason Comments Physical Encounter Details Date Type Department Care Team Description 03/19/2011 Office Visit Women's Health Mehreen Green [facility] (Pr imary Dx); Mason Butler MD P hD Osteopenia Building [address] [place] [address] 1st Floor, Clinic [address] [place] [address] [place], [place] (Work) [phone] Social History Tobacco Use [...] estrogen. She had a mammogram Aug-Nov at [facility]. She has had a previous breast reduction. [...] 02/10. She recently was evaluated at the [facility] for cardiac risk 12/2010. She [...] H1N1. She had the shingles shot at [facility] September 23, 2009. MEDICATIONS: She is [...] son. 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 [...] atnight. Has recently been evaluated [facility] for cardiac risk. Had a recent [...] TSH and all normal. Recent lipid through [facility]. 2. Vaginal atrophy - controlled with [...] 09/10/2022 Office Visit Internal Medicine LogeaisMargot MD [address] [place] [phone] (Wo rk) documented as of this encounter Procedures Procedure Name Priority Date/Time Associated Diagnosis Comme nts ROUTINE UA WITH Routine 03/19/2011 11:00 Preventative health R esults for this MICROSCOPIC AM CDT care procedure are i n the results section. documented in this encounter Results (ABNORMAL) Routine UA with microscopic (03/19/2011 11:00 AM CDT) Component Value Ref Test Analysis Performed At [facility] gist Range Method Time Signature Color Urine Yellow [facility] Appearance Urine Clear [facility] Glucose Urine Negative NEG [facility] mg/dL [facility] Bilirubin Urine Negative NEG [facility] Ketones Urine Negative NEG [facility] mg/dL [facility] Specific [place] 1.016 1.003 - [facility] Urine 1.035 [facility] Blood Urine Negative NEG [facility] pH Urine 5.0 5.0 - [facility] 7.0 pH [facility] Protein Albumin Negative NEG [facility] Urine mg/dL [facility] Urobilinogen Normal 0.0 - [facility] mg/dL 2.0 [facility] mg/dL [facility] LABS Nitrite Urine Negative NEG [...] e Number [facility] 500 [place], [place] [phone] [place] [address] LABS documented in this encounter Visit Diagnoses Diagnosis Preventative health care - Primary Routine general medical examination at a health care facility Osteopenia Disorder of bone and cartilage, unspecif ied documented in this encounter Care Teams Set Builder Relationship Specialty Start Date End Date Mehreen Johnston MD PhD PCP - General Family Practice 03/19/11 documented as of this encounter
--- OUTSIDE RECORDS SUMMARY | 2022-07-30 20:14 | XMS_ITS | Encounter Summary ---
:1945 Author Organization [place] Address [address] [place] [address]. [place] [address] Care Team Providers Name Role Phone Lisseth Vang MD Primary Care Provider Reason for Visit Reason Onset Date Comments Pre Visit Planning - Done 03/17/2011 discuss inters tomasz Encounter Details Date Type Department Care Team Description 03/17/2011 Telephone UROLOGY CLINIC AND Carlota Landeros, Pre Visit Planning - [facility] Done (discuss AND UROLOGIC CANCERS [address] [place] interstim) [facility] [address], [address] [place] [address] [place] [address] Social History Tobacco Use Types Packs/Day Years Used Date Smoking Tobacco: Never Smokeless Tobacco: Never Alcohol Use Standard Drinks/Week Comments No 0 (1 standard drink = 0.6 oz pure alcoho l) Sex Assigned at Date Recorded Female 12/20/2018 4:10 PM CDT documented as of this encounter Miscellaneous Notes Telephone Encounter - Essence Joiner LPN - 03/17/2011 2:56 PM CDT Discuss interstim documented in this encounter Plan of Treatment Upcoming Encounters Date Type Specialty Care Team Description 09/10/2022 Office Visit Internal Medicine LogeaisMargot MD [address] [address] (Wo rk) documented as of this encounter Visit Diagnoses Not on filedocumented in this encounter Care Teams Social Sciences Department Chair Relationship Specialty Start Date End Date Lisseth Vang MD PCP - General 02/05/11 03/18/11 [address] [facility] [address] [place] [address] documented as of this encounter
--- OUTSIDE RECORDS SUMMARY | 2022-07-30 20:14 | XMS_ITS | Encounter Summary ---
:1945 Author Organization [place] Address [address] [place] [address]. [place] [address] Care Team Providers Name Role Phone Unavailable Primary Care Provider Unavailable Encounter Details Date Type Department Care Team Description 10/02/2010 Emergency room [facility] [place] Results [address] [place], [place] [phone] (Wo rk) Social History Tobacco Use Types Packs/Day Years Used Date Smoking Tobacco: Never Alcohol Use Standard Drinks/Week Comments Not Asked 0 (1 standard drink = 0.6 oz pure alcoho l) Sex Assigned at Date Recorded Female 12/20/2018 4:10 PM CDT documented as of this encounter Progress Notes Parul Gunn - 10/19/2010 6:47 PM WELFARE INTERVIEWER FINAL ADDENDUM TO T-NOTE Please see T-note. [...] PP Name: YIMI GARCIA MRN: [id number] Account: [id number] : 1945 Visit Date: 10/02/2010 Document: [id number] cc: Lisseth Vang MD ARE INTERVIEWER documented in this encounter Plan of Treatment Upcoming Encounters Date Type Specialty Care Team Description 09/10/2022 Office Visit Internal Medicine LogeaMargot man MD [address] [address] (Wo rk) documented as of this encounter Visit Diagnoses Not on filedocumented in this encounter
--- OUTSIDE RECORDS SUMMARY | 2022-07-30 20:14 | XMS_ITS | Encounter Summary ---
:1945 Author Organization [place] Address [address] [place] [address]. [place] [address] Care Team Providers Name Role Phone Lisseth Vang MD Primary Care Provider Encounter Details Date Type Department Care Team Description 02/20/2011 Telephone Women's Health Mehreen Green MD PhillipsClarice PhD [address] 1st Floor, [address] [place] [phone] Social History Tobacco Use Types Packs/Day Years Used Date Smoking Tobacco: Never Smokeless Tobacco: Never Alcohol Use Standard Drinks/Week Comments No 0 (1 standard drink = 0.6 oz pure alcoho l) Sex Assigned at Date Recorded Female 12/20/2018 4:10 PM CDT documented as of this encounter Miscellaneous Notes Telephone Encounter - Tiffanie Mracos - 02/20/2011 9:29 AM CDT I called [...] states she needs a prescription from her [facility] MD (renewed from a long time ago) estrace cream vaginal cream She says she has been waiting for quite a while to hear back about this request. Please call Into her new pharmacy: [facility]: And call # above to leave a msg confirming Thank you! JJH documented in this encounter Plan of Treatment Upcoming Encounters Date Type Specialty Care Team Description 09/10/2022 Office Visit Internal Medicine LogMargot sadler MD [address] [address] (Wo rk) documented as of this encounter Visit Diagnoses Diagnosis Menopause - Primary Symptomatic menopausal or female climact froy states documented in this encounter Care Teams Color Worker Relationship Specialty Start Date End Date Lisseth Vang MD PCP - General 02/05/11 03/18/[address] [place] [address] [address] [place], [place] [address] documented as of this encounter
--- OUTSIDE RECORDS SUMMARY | 2022-07-30 20:14 | XMS_ITS | Encounter Summary ---
:1945 Author Organization [place] Address [address] [place] [address]. [place] [address] Care Team Providers Name Role Phone Mehreen Johnston MD PhD Primary Care Provider [phone] Reason for Visit Reason Comments Recheck Medication urodynamics follow up Encounter Details Date Type Department Care Team Description 03/19/2011 Office Visit UROLOGY CLINIC AND Carlota Landeros Mix ed incontinence urge and stress (male)(female); [facility] Incomplete bladder emptying [facility] AND UROLOGIC [address] [facility]CERS [place] [address] [facility] [address] [address], [address] [place] [address] (Work) [place] [address] [place] [address] Social History Tobacco Use Types [...] Description 09/10/2022 Office Visit Internal Medicine DianaeaMargot amn MD [address] [place] [phone] (Wo rk) documented as of this encounter Visit Diagnoses Diagnosis Mixed incontinence urge and stress (male )(female) Incomplete bladder emptying documented in this encounter Care Teams Wood Gang Sawyer Relationship Specialty Start Date End Date Mehreen Johnston MD PhD PCP - General Family Practice 03/19/11 11/15/11 documented as of this encounter
--- OUTSIDE RECORDS SUMMARY | 2022-07-30 20:14 | XMS_ITS | Encounter Summary ---
:1945 Author Organization [place] Address [address] [place] [address]. [place] [address] Care Team Providers Name Role Phone Mehreen Johnston MD PhD Primary Care Provider [phone] Reason for Visit Reason Comments RECHECK interstim removal Encounter Details Date Type Department Care Team Description 04/10/2011 Office Visit UROLOGY CLINIC AND Lo Burrell incontinence [facility] urge and stress PROSTATE AND UROLOGIC [address] (male)(female) [address] (Primary Dx) [place], [place] BUILDING [address] [address], [address] [place] [address] (Work) [place] [address] [place] [address] Social History Tobacco Use Types [...] Visit Internal Medicine LogeaMargot man MD [address] [address] (Wo rk) documented as of this encounter Visit Diagnoses Diagnosis Mixed incontinence urge and stress (male )(female) - Primary documented in this encounter Care Teams Java Tech Lead Relationship Specialty Start Date End Date Mehreen Johnston MD PhD PCP - General Family Practice 03/19/11 documented as of this encounter
--- OUTSIDE RECORDS SUMMARY | 2022-07-30 20:14 | XMS_ITS | Encounter Summary ---
:1945 Author Organization [place] Address [address] [place] [address]. [place] [address] Care Team Providers Name Role Phone Mehreen Johnston MD PhD Primary Care Provider [phone] Reason for Visit Reason Comments Other ppd placement Encounter Details Date Type Department Care Team Description 03/25/2011 Office Visit Gynecologic Cancer Mehreen Johnston MD PhD [address] [place] [phone] Preventative health Center Nurse, [facility] care (Primary Dx) [facility] 1st Floor, Clinic [address] [place] [phone] Social History Tobacco Use Types Packs/Day Years Used Date Smoking Tobacco: Never Smokeless Tobacco: Never Alcohol Use Standard Drinks/Week Comments No 0 (1 standard drink = 0.6 oz pure alcoho l) Sex Assigned at Date Recorded Female 12/20/2018 4:10 PM CDT documented as of this encounter Nursing Notes 03/25/2011 10:30 AM CDT >> SEAMUS LAURA Wed Mar 25, 2011 2:40 PM See immuization documented in this encounter Plan of Treatment Upcoming Encounters Date Type Specialty Care Team Description 09/10/2022 Office Visit Internal Medicine Margot Branham MD [address] [phone] (Wo rk) documented as of this encounter Visit Diagnoses Diagnosis Preventative health care - Primary Routine general medical examination at a health care facility documented in this encounter Care Teams Knowledge Analyst Relationship Specialty Start Date End Date Mehreen Johnston MD PhD PCP - General Family Practice 03/19/11 11/15/11 documented as of this encounter
--- OUTSIDE RECORDS SUMMARY | 2022-07-30 20:14 | XMS_ITS | Encounter Summary ---
:1945 Author Organization [place] Address [address] [place] [address]. [place] [address] Care Team Providers Name Role Phone Unavailable Primary Care Provider Unavailable Encounter Details Date Type Department Care Team Description 12/04/2010 Office Visit-[facility] Anh Costa, Phys[facility] GENERAL LOT ATTENDANT PAUL Mota [facility] 4th Floor, Clinic [address] [place] [phone] Social History Tobacco Use Types Packs/Day Years Used Date Smoking Tobacco: Never Alcohol Use Standard Drinks/Week Comments Not Asked 0 (1 standard drink = 0.6 oz pure alcoho l) Sex Assigned at Date Recorded Female 12/20/2018 4:10 PM CDT documented as of this encounter Progress Notes Anh Costa - 12/04/2010 3:30 PM CST Taxonomy Teacher: Anh Costa Status: Final Encounter: 04 Dec [...] hormone therapy- She [facility] and started on prometrium and has been [...] declined. MIRALAX POWD 3350NF;17 grams tid; Rx [place] 3 1000 MG Capsule;TAKE 2 CAPSULE TWICE [...] flu. 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 She has one [...] 2011. Signed by Anh Costa, MSN, RN, PHOTO FINISHER Nurse Practitioner [facility] [place] Mail Code [address]508 [address] [place] [address] phone: [phone] fax: [phone]. Signature Signed By: Anh Costa N.P.; 12/05/2010 3:36 PM BRUSH CLEARING LABORER. H CLEARING LABORER documented in this encounter Plan of Treatment Upcoming Encounters Date Type Specialty Care Team Description 09/10/2022 Office Visit Internal Medicine Margot Branham MD [address] [place] [phone] (Wo rk) documented as of this encounter Visit Diagnoses Not on filedocumented in this encounter
--- OUTSIDE RECORDS SUMMARY | 2022-07-30 20:14 | XMS_ITS | Encounter Summary ---
:1945 Author Organization [place] Address [address] [place] [address]. [place] [address] Care Team Providers Name Role Phone Unavailable Primary Care Provider Unavailable Encounter Details Date Type Department Care Team Description 11/19/2010 Abstract M [facility] Info Mgmt Abstra ct, Provider Srvcs [address] [place] [address] Social History Tobacco Use [...] Visit Internal Medicine LogeaisMargot MD [address] [phone] (Wo rk) documented as of this encounter Visit Diagnoses Not on filedocumented in this encounter
--- OUTSIDE RECORDS SUMMARY | 2022-07-30 20:14 | XMS_ITS | Encounter Summary ---
:1945 Author Organization [place] Address [address] [place] [address]. [place] [address] Care Team Providers Name Role Phone Mehreen Johnston MD PhD Primary Care Provider [phone] Encounter Details Date Type Department Care Team Description 04/15/2011 Orders Only UROLOGY CLINIC AND Carlota Landeros Urg ency of urination [facility] AND [facility] CANCERS [address] [facility] [address], [address] [place] [address] [place] [address] Social History Tobacco Use Types [...] Team Description 09/10/2022 Office Visit Internal Medicine LogaMrgot sadler MD [address] [address] (Wo rk) Scheduled Orders Name Type Priority Associated Diagnoses Order S chedule Bridget-Operative Worksheet Procedures Routine Urgency of urina tion Ordered: 04/15/2011 (Urology) documented as of this encounter Visit Diagnoses Diagnosis Urgency of urination documented in this encounter Care Teams Produce Service Team Member Relationship Specialty Start Date End Date Mehreen Johnston MD PhD PCP - General Family Practice 03/19/11 documented as of this encounter
--- OUTSIDE RECORDS SUMMARY | 2022-07-30 20:14 | XMS_ITS | Encounter Summary ---
:1945 Author Organization [place] Address [address] [place] [address]. [place] [address] Care Team Providers Name Role Phone Mehreen Johnston MD PhD Primary Care Provider Encounter Details Date Type Department Care Team Description 05/13/2011 Orders Only UROLOGY CLINIC AND Carlota Landeros Urg ency of urination [facility] (Primary Dx) [facility] UR[facility] [address] [place] [address] [place], [place] BUILDING [address] [address]LO[address], [address] [facility] [address] [address] Social History Tobacco Use Types [...] Internal Medicine LogMargot sadler MD [address] [address] (Wo rk) documented as of this encounter Visit Diagnoses Diagnosis Urgency of urination - Primary documented in this encounter Care Teams Director Of Global Sales Relationship Specialty Start Date End Date Mehreen Johnston MD PhD PCP - General Family Practice 03/19/11 11/15/11 documented as of this encounter
--- OUTSIDE RECORDS SUMMARY | 2022-07-30 20:14 | XMS_ITS | Encounter Summary ---
:1945 Author Organization [place] Address [address] [place] [address]. [place] [address] Care Team Providers Name Role Phone Mehreen Johnston MD PhD Primary Care Provider [phone] Reason for Visit Reason Comments Other ppd placement Encounter Details Date Type Department Care Team Description 04/15/2011 Office Visit Gynecologic Cancer Mehreen Johnston MD PhD [address] [place] [phone] Preventative health Center Nurse, [facility] care (Primary Dx) [facility] 1st Floor, Clinic [address] [place] [phone] Social History Tobacco Use Types Packs/Day Years [...] Visit Internal Medicine LogeaisMargot MD [address] [phone] (Wo rk) documented as of this encounter [...] facility documented in this encounter Care Teams Ladies Underwear Operator Relationship Specialty Start Date End Date Mehreen Johnston MD PhD PCP - General Family Practice 03/19/11 11/15/11 documented as of this encounter
--- OUTSIDE RECORDS SUMMARY | 2022-07-30 20:14 | XMS_ITS | Encounter Summary ---
:1945 Author Organization [place] Address [address] [place] [address]. [place] [address] Care Team Providers Name Role Phone Lisseth Vang MD Primary Care Provider Reason for Visit Reason Comments Incontinence Encounter Details Date Type Department Care Team Description 02/05/2011 Office Visit Outpatient Carlota Landeros Urinary hesi tancy; Interventional and MD Gage Post-void dribbling Diagnostic [address] [place] [address],Clinic [address] [place] [address] [facility] 88 (Work) [place] [phone] Social History Tobacco Use Types Packs/Day Years Used Date Smoking Tobacco: Never Smokeless Tobacco: Never Alcohol Use Standard Drinks/Week Comments No 0 (1 standard drink = 0.6 oz pure alcoho l) Sex Assigned at Date Recorded Female 12/20/2018 4:10 PM CDT documented as of this encounter Last Filed Vital Signs Vital Sign Reading Time Taken Comments Blood Pressure 118/70 02/05/2011 4:25 PM CDT Pulse 68 02/05/2011 4:25 PM CDT Temperature - - Respiratory Rate 15 02/05/2011 4:25 PM CDT Oxygen Saturation 97% 02/05/2011 4:25 PM CDT Inhaled Oxygen Concentration - - Weight - - Height - - Body Mass Index - - documented in this encounter Progress Notes Carlota Landeros - 02/05/2011 3:45 PM CDT INDICATIONS FOR PROCEDURE: Ms. Ramona Sheikh is a very pleasant 65 year old female with urinary incontinence and post void dribbling. PROCEDURE: 1.Complex filling cystourethrogram with measurement of bladder and rectal pressures. 2.Complex voiding cystourethrogram with measurement of bladder and rectal pressures. 3.Electromyography during urodynamics. 4.Uroflowmetry. 5.Sterile urethral catheterization for measurement of postvoid residual urine volume. 6.Fluoroscopic imaging of the bladder during urodynamics, at least 3 views. 7.Interpretation of Urodynamics study and fluoroscopy. VOIDING DIARY: Not completed DESCRIPTION OF PROCEDURE: Risks, benefits, and alternatives were discussed with the patient and theywished to proceed. Urodynamics is planned to better assess the primary etiology for Ms. Sheikh's urologic dysfunction. The patient not on any anticholinergic medication. After informed consent was obtained, the patient was taken to the procedure room where uroflowmetry was performed. Findings below.Next a triple-lumen urodynamics catheter was inserted in the bladder. A rectal manometry catheter was placed in the rectum. EMG pads were placed on either side of the anal verge. The bladder was filledwith sterile saline at 30 cc/minute and serial pressures were recorded. UROFLOW: Voided volume:98 ml Maximum flow rate:5 ml/sec Average flow rate:3 ml/sec Post void Residual by catheter:20 ml Character of the curve:joseph shaped but very flat. DURING THE FILLING PHASE: At the following volumes pt. Experienced: First sensation:99 ml First Desire:100 ml Strong Desire:411 ml Maximum Capacity:415 ml Uninhibited detrusor contractions:None Compliance:good Continence: Large Leak at abd pressure of 153 cmH2O and volume of 319 ml, no leak at lower volumes and similar pressures. Some urethral hypermobility. EMG:quiet except with guarding DURING THE VOIDING PHASE: Detrusor Contraction:none, voided by valsalva but only with slightly elevated abd pressure by about 20 cm H2O. Voided volume:611 ml Maximum flow rate:approx 20 ml/sec Average flow rate:unknown Post void Residual:150 ml DSD:none FLUOROSCOPIC IMAGING OF THE BLADDER DURING UDS demonstrated a smooth walled bladder no diverticulae or cellules. No vesicoureteral reflux was observed. The bladder neck was closed during filling and open during voiding. After voiding to completion, all catheters were removed and the patient was brought back into the consultation room to discuss her study results. A/P: Ms. Ramona Sheikh is a very pleasant 65 year old female who demonstrated good bladder compliance and normal bladder capacity today on urodynamic evaluation. No uninhibited detrusor contractions and some stress incontinence were observed. There was no detrusor sphincter dyssynergia and no signs of outlet obstruction. -We discussed options of therapy including medication for her urgency, however initially she did notmount any detrusor contraction and she felt though that this did not represent how she normally voids. She denies straining to void normally. We did continue filling and added an addition 300 cc. She then voided as above but w/o any detrusor contraction. -options are then to continue with crede voiding, vs. Performing sic, vs. Interstim. She was given abrochure on interstim today and will think about it. -could also consider periurethral bulking in the future for the stress incontinence. -f/u with me in 2-3 weeks to discuss further. Thank you for allowing me to participate in the care of Ms. Ramona Sheikh and I will keep you updated on her progress. Carlota Landeros MD documented in this encounter Plan of Treatment Upcoming Encounters Date Type Specialty Care Team Description 09/10/2022 Office Visit Internal Medicine Margot Branham MD [address] [phone] (Wo rk) documented as of this encounter Visit Diagnoses Diagnosis Urinary hesitancy Post-void dribbling documented in this encounter Care Teams Cloth Seconds Sorter Relationship Specialty Start Date End Date Lisseth Vang MD PCP - General 02/05/11 03/18/[address] [facility] [address] [place], [place] [id number] documented as of this encounter
--- OUTSIDE RECORDS SUMMARY | 2022-07-30 20:14 | XMS_ITS | Encounter Summary ---
:1945 Author Organization [place] Address [address] [place] [address]. [place] [address] Care Team Providers Name Role Phone Mehreen Johnston MD PhD Primary Care Provider [phone] Reason for Visit Reason Comments Incontinence Encounter Details Date Type Department Care Team Description 04/02/2011 Office Visit Outpatient Carlota Landeros Urinary rete ntion; Interventional and MD Gage Urgency of urination; [facility] [address] Mixed incontinence urge and stress (male)(female) [place] [address],Clinic [address] [place] [address] [facility] 88 (Work) [place], [place] [address] [phone] Social History Tobacco Use Types Packs/Day Years [...] and attached to the generator and the [employer] kiosk sales representative went over instructions with the patient. [...] 1:45 PM CDT >> RITU MERE REGALADO [facility] Apr 02, 2011 2:22 PM Pause for [...] Visit Internal Medicine Margot Branham MD [address] [place] [phone] (Wo rk) Scheduled Orders Name Type Priority [...] )(female) documented in this encounter Care Teams Cloth Neutralizer Relationship Specialty Start Date End Date Mehreen Johnston MD PhD PCP - General Family Practice 03/19/11 11/15/11 documented as of this encounter
--- OUTSIDE RECORDS SUMMARY | 2022-07-30 20:14 | XMS_ITS | Encounter Summary ---
:1945 Author Organization [place] Address [address] [place] [address] Care Team Providers Name Role Phone Unavailable Primary Care Provider Unavailable Encounter Details Date Type Department Care Team Description 10/06/[address] [facility] Mehreen Johnston, [facility] Results MD Decker [address] [place] [address] (Wo rk) Social History Tobacco Use Types [...] Visit Internal Medicine Logeais, MD Margot 909 [facility] 4TH [place], [place] [phone] (Wo rk) documented as of this encounter Procedures Procedure Name Priority Date/Time Associated Diagnosis Comme nts MR PELVIC BONES W/O Routine 10/06/2010 4:23 PM Re sults for this & W CONTRAST CHRONOMETER ADJUSTER procedure are i n the results section. documented in this encounter Results MRI Pelvis w & w/o contrast (10/06/2010 4:23 PM CHRONOMETER ADJUSTER) Anatomical Region Laterality Modality Abdomen/Pelvis, SUBRAD MR MSK, UMP MR MSK, UMP MR BODY Other Specimen (Source) Anatomical Collection Method Collection Time Re ceived Time Location / / Volume Laterality 10/06/2010 4:23 PM CHRONOMETER ADJUSTER Impressions 10/07/2010 10:47 AM CHRONOMETER ADJUSTER MRI PELVIS CLINICAL HISTORY: Palpable right adnexal [...]
--- OUTSIDE RECORDS SUMMARY | 2022-07-30 20:14 | XMS_ITS | Encounter Summary ---
:1945 Author Organization [place] [facility] Address [address] [place] [address]. [place] [address] Care Team Providers Name Role Phone Unavailable Primary Care Provider Unavailable Encounter Details Date Type Department Care Team Description 01/02/2011 Telephone [facility] Shanell Baum MD [facility] [address] [place], [place] [address] Floor [place] [phone] Social History Tobacco Use Types Packs/Day Years [...] January 07, 2011 4:06 PM To P [facility] Rn Team Subject Returning call Patient Ramona Sheikh [[id number]] (: 1945) Phone Entered Pt Home Sender [phone] Message Pt is getting frustrated, she is [...] January 02, 2011 11:58 AM To P [facility] Rn Team Subject Returning call Flags Call patient Patient Ramona Sheikh [[id number]] (: 1945) Phone Entered Pt Home Sender [phone] Message Pt received message from clinic that she could not understand, she would like someone to call her back and speak clearly and slowly if they leave a voicemail. Telephone Encounter - Katina Rivera - 01/02/2011 9:38 AM CDT Left message for patient to call [facility]. Wanted to clalrifie patient request. Telephone [...] Shayy Mckenna Sent: 01/01/2011 3:26 PM To: [facility] Rn Team Pt would like labs to be done tomorrow morning. Telephone Encounter - Shanell Baum MD - 01/02/2011 7:27 AM CDT Message copied by SHANELL BAUM on WedJan 02, 2011 7:27 AM ------ Message from: KATINA RIVERA Created: WedJan 01, 2011 3:30 PM Contact: ----- Message ----- From: Shayy Mckenna Sent: 01/01/2011 3:26 PM To: [facility] Rn Team Pt would like labs to be done tomorrow morning. documented in this encounter Plan of Treatment Upcoming Encounters Date Type Specialty Care Team Description 09/10/2022 Office Visit Internal Medicine LogeaisMargot MD [address] [place] [phone] (Wo rk) documented as of this encounter Visit Diagnoses Not on filedocumented in this encounter
--- OUTSIDE RECORDS SUMMARY | 2022-07-30 20:14 | XMS_ITS | Encounter Summary ---
:1945 Author Organization [place] Address [address] [place] [address]. [place] [address] Care Team Providers Name Role Phone Unavailable Primary Care Provider Unavailable Encounter Details Date Type Department Care Team Description 11/12/2010 Office Visit-[facility] AND Marilyn Landeros MD [facility] [address] TE AND UROLOGIC CANCERS [address] [place] [address] 4TH FLOOR, [address] [place] [address], (Fax ) [address] [address] Social History Tobacco Use Types Packs/Day Years Used Date Smoking Tobacco: Never Alcohol Use Standard Drinks/Week Comments Not Asked 0 (1 standard drink = 0.6 oz pure alcoho l) Sex Assigned at Date Recorded Female 12/20/2018 4:10 PM CDT documented as of this encounter Progress Notes Carlota Landeros - 11/12/2010 11:15 AM CST Igniter Capper: Carlota Landeros Status: Final - Signature Encounter: 12 Nov 2010 Type: Uro Prostate Visit Department of Urology Urology and [facility], [address], 4th Floor [address] [place] [address] RE: Ramona Sheikh : 1945 MUSA: 11/12/2010 [...] time to take effect. A flexible 16 [place] cystoscope was then passed through the urethra [...] of Urology NN:erin cc: Lisseth Estes M.D. [facility] Electronically signed by:Carlota Landeros M.D. Nov 13 2010 2:14PM TEXTILE CHEMIST ILE CHEMIST documented in this encounter Plan of Treatment Upcoming Encounters Date Type Specialty Care Team Description 09/10/2022 Office Visit Internal Medicine Margot Branham MD [address] [place] [phone] (Wo rk) documented as of this encounter Visit Diagnoses Not on filedocumented in this encounter
--- OUTSIDE RECORDS SUMMARY | 2022-07-30 20:14 | XMS_ITS | Encounter Summary ---
:1945 Author Organization [facility] Address [address] [place] [address]. [place] [address] Care Team Providers Name Role Phone Unavailable Primary Care Provider Unavailable Encounter Details Date Type Department Care Team Description 09/25/2010 Historic Results [facility] Carlota Landeros MD [place] [address] [place] [address] [place] [address] [phone] Social History Tobacco Use Types Packs/Day Years [...] Visit Internal Medicine Margot Branham MD [address] [place] [phone] (Wo rk) documented as of this encounter Procedures Procedure Name Priority Date/Time Associated Comments Diagnosis ISTAT CREATININE POCT Routine 09/25/2010 4:16 PM Results for this WINDOWS DESKTOP ENGINEER procedure are i n the results section. ROUTINE UA WITH Routine 09/25/2010 10:53 Results for this MICROSCOPIC AM WINDOWS DESKTOP ENGINEER procedure are i n the results section. documented in this encounter Results Creatinine POCT (09/25/2010 4:16 PM WINDOWS DESKTOP ENGINEER) P athologist Signature Creatinine 0.8 0.52 - 1.04 MISYS mg/dL Comment: New IDMS-traceable calibration beginning 09/19/08 GFR Estimate 72 >60 mL/min/1.7m2 MISYS GFR Estimate If Black 87 >60 mL/min/1.7m2 M ISYS Specimen Anatomical Collection Method Collection Time Receive d Time (Source) Location / / Volume Laterality 09/25/2010 4:16 PM 0 4:25 WINDOWS DESKTOP ENGINEER PM WINDOWS DESKTOP ENGINEER Carlota Landeros MD LAB - BEAKER POCT Performing Organization Address City/[facility] Phon e Number MISYS (ABNORMAL) Routine UA with microscopic (09/25/2010 10:53 AM WINDOWS DESKTOP ENGINEER) Component Value Ref Test Analysis Performed At [facility] Range Method Time Signature Source Unspecified MISYS Urine Color Urine Yellow MISYS Appearance Urine Clear MISYS Glucose Urine Negative NEG MISYS mg/dL Bilirubin Urine Negative NEG MISYS Ketones Urine Negative NEG MISYS mg/dL Specific [place] 1.017 1.003 - MISYS Urine 1.035 Blood [...] / Volume Laterality 09/25/2010 10:53 09/25/2010 AM WINDOWS DESKTOP ENGINEER 11:03 AM WINDOWS DESKTOP ENGINEER Carlota Landeros MD LAB - URINE ORDERABLES Performing Organization Address [facility] Phon e Number MISYS documented in this encounter Visit Diagnoses Not on filedocumented in this encounter
--- OUTSIDE RECORDS SUMMARY | 2022-07-30 20:14 | XMS_ITS | Encounter Summary ---
:1945 Author Organization [place] Address [address] [place] [address]. [place] [address] Care Team Providers Name Role Phone Unavailable Primary Care Provider Unavailable Reason for Visit Reason Onset Date Comments Previsit 02/04/2011 Encounter Details Date Type Department Care Team Description 02/04/2011 Telephone UROLOGY CLINIC AND Francisco Landeros MD Previsit [facility] AND [address] [place] [address] [place] [address] [facility] 4TH FLOOR, [address] [facility] [address] [place], [place] [phone] Social History Tobacco Use [...] Visit Internal Medicine LogeaisMargot MD [address] [address] (Wo rk) documented as of this encounter Visit Diagnoses Not on filedocumented in this encounter
--- OUTSIDE RECORDS SUMMARY | 2022-07-30 20:15 | XMS_ITS | Encounter Summary ---
:1945 Author Organization [place] Address [address] [place] [address]. [place] [address] Care Team Providers Name Role Phone Unavailable [...] Unknown, Provider - 05/28/2010 11:05 AM CDT Elevator Service Technician: Latanya Wasserman Status: Final Encounter: 28 May 2010 Type: Rooming Note Reason For Visit YIMI GARCIA is a 64 year old female present today with a walk-in visit wanting to have blood pressure checked prior to starting medication. Notified Anh Costa of blood pressure Do you have any other appointments of any type today within the [facility] system? (this includes clinic appt's, Imaging, [...] CAPS;TAKE 1 CAPSULE EVERY 12 HOURS; RPT [place] 3 1000 MG Capsule;TAKE 2 CAPSULE TWICE DAILY; RPT. Signature Signed By: Latanya Wasserman ; 05/28/2010 11:07 AM PAINTER SPRAY. documented in this encounter Plan of Treatment Upcoming Encounters Date Type Specialty Care Team Description 09/10/2022 Office Visit Internal Medicine LogeaisMargot MD [address] [place] [phone] (Wo rk) documented as of this encounter Visit Diagnoses Not on filedocumented in this encounter
--- OUTSIDE RECORDS SUMMARY | 2022-07-30 20:15 | XMS_ITS | Encounter Summary ---
:1945 Author Organization [facility] Address [address] [place] [address]. [place] [address] Care Team Providers Name Role Phone Unavailable Primary Care Provider Unavailable Encounter Details Date Type Department Care Team Description 05/12/2010 Office Visit-[facility] INTERFACE P DEPT Anh Costa A PRN RAC SPECIALIST Social History Tobacco Use Types Packs/Day Years Used Date Smoking Tobacco: Never Alcohol Use Standard Drinks/Week Comments Not Asked 0 (1 standard drink = 0.6 oz pure alcoho l) Sex Assigned at Date Recorded Female 12/20/2018 4:10 PM CDT documented as of this encounter Progress Notes Anh Costa - 05/12/2010 1:00 PM CDT District Home Economics Agent: Anh Costa Status: Amended, Final Encounter: 12 [...] by:Anh Costa N.P. May 08 2010 2:21PM HORTICULTURAL AGENT AMENDMENTS: 1. Pt returned call. In checking with her pharmacy a generic propranolol [place] is available. She will begin and follow up in 1-2 weeks for a nurses visit BP check and 3 months follow up clinic visit. Electronically signed by:Anh Costa N.P. May 09 2010 9:14AM HORTICULTURAL AGENT documented in this encounter Plan of Treatment Upcoming Encounters Date Type Specialty Care Team Description 09/10/2022 Office Visit Internal Medicine LogeaMargot man MD [address] [place] [phone] (Wo rk) documented as of this encounter Visit Diagnoses Not on filedocumented in this encounter
--- OUTSIDE RECORDS SUMMARY | 2022-07-30 20:15 | XMS_ITS | Encounter Summary ---
:1945 Author Organization [facility] Address [address] [place] [address]. [place] [address] Care Team Providers Name Role Phone Unavailable [...] Unknown, Provider - 05/15/2010 12:00 AM CDT Senior Sales Administrator: Latanya Wasserman Status: Final Encounter: 15 May [...] WEEKS THEN 1/2 APPLICATOR 3 TIMES/WEEK; Rx [place] 3 1000 MG Capsule;TAKE 2 CAPSULE TWICE DAILY; RPT. Signature Signed By: Latanya Wasserman ; 05/29/2010 9:13 AM TURN DOWN ATTENDANT. documented in this encounter Plan of Treatment Upcoming Encounters Date Type Specialty Care Team Description 09/10/2022 Office Visit Internal Medicine Logeais, MD Margot [address] [address] (Wo rk) documented as of this encounter Visit Diagnoses Not on filedocumented in this encounter
--- OUTSIDE RECORDS SUMMARY | 2022-07-30 20:15 | XMS_ITS | Encounter Summary ---
:1945 Author Organization [place] Address [address] [place] [address]. [place] [address] Care Team Providers Name Role Phone Unavailable Primary Care Provider Unavailable Encounter Details Date Type Department Care Team Description 08/21/2010 Office Visit-[facility] INTERFACE [facility] DEPT Provider, [facility] Nurs e Social History Tobacco Use Types Packs/Day Years Used Date Smoking Tobacco: Never Alcohol Use Standard Drinks/Week Comments Not Asked 0 (1 standard drink = 0.6 oz pure alcoho l) Sex Assigned at Date Recorded Female 12/20/2018 4:10 PM CDT documented as of this encounter Progress Notes Provider, [facility] Nurse - 08/21/2010 6:21 PM CST Certified Alcohol And Drug Counselor: Priya Martinez Status: Final Encounter: 21 Aug 2010 Type: Triage Nurse Note Informant Time of call: 18:21 Date of call: 08/21/2010 Work [phone] Caller: Patient REASON FOR CALL: Symptomatic sinus [...] make appt as not seen since 12/2009. [facility] Caller verbalized understanding of plan. Signature Signed By: Priya [place] R.N.; 08/26/2010 10:01 AM HEAD GAUGE UNIT OPERATOR; Review. documented in this encounter Plan of Treatment Upcoming Encounters Date Type Specialty Care Team Description 09/10/2022 Office Visit Internal Medicine Logeais, Margot, MD [address] [phone] (Wo rk) documented as of this encounter Visit Diagnoses Not on filedocumented in this encounter
--- OUTSIDE RECORDS SUMMARY | 2022-07-30 20:15 | XMS_ITS | Encounter Summary ---
:1945 Author Organization [facility] Address [address] [place] [address]. [place] [address] Care Team Providers Name Role Phone Unavailable Primary Care Provider Unavailable Reason for Visit Reason Comments Urgent Care Cough 1 1/2 weeks ago had sinus in fection; was given Augmentin. Has also had productive cough (green sput um) for 2 weeks which is getting worse. Encounter Details Date Type Department Care Team Description 07/23/2010 Office Visit [facility] Delbert Cooper, [facility] Reed OLIVEROS (Primar y Dx) [address] [address] Social History Tobacco Use Types [...] PCP in 2-3 days. See orders in [email or web address] documented in this encounter Nursing Notes 07/23/2010 [...] 09/10/2022 Office Visit Internal Medicine LogeaisJatinder MD [address] [place] [phone] (Wo rk) documented as of this encounter Visit Diagnoses Diagnosis Post-nasal drip - Primary Postnasal drip documented in this encounter
--- OUTSIDE RECORDS SUMMARY | 2022-07-30 20:15 | XMS_ITS | Encounter Summary ---
:1945 Author Organization [facility] Address [address] [place] [address]. [place] [address] Care Team Providers Name Role Phone Unavailable Primary Care Provider Unavailable Encounter Details Date Type Department Care Team Description 09/23/2010 Office Visit-[facility] Women's Health Lisseth Rocha Phillips-Wangensteen MD [address] 1st Floor, Clinic [address] [place], [place] [phone] (Wo rk) Social History Tobacco Use Types Packs/Day Years Used Date Smoking Tobacco: Never Alcohol Use Standard Drinks/Week Comments Not Asked 0 (1 standard drink = 0.6 oz pure alcoho l) Sex Assigned at Date Recorded Female 12/20/2018 4:10 PM CDT documented as of this encounter Progress Notes Lisseth Vang - 09/23/2010 11:40 AM CST Emergency Response Officer: Lisseth Vang Status: Final Encounter: 23 Sep 2010 Type: [facility] Visit Reason For Visit Patient is here for f/u BP, weight & nutrition Do you have any other appointments, tests or procedures within the [facility] system for this same day? No. HPI [...] Meds MIRALAX POWD 3350NF;17 grams tid; Rx [place] 3 1000 MG Capsule;TAKE 2 CAPSULE TWICE [...] By: Lisseth Vang M.D.; 09/23/2010 5:34 PM PERSON INVESTIGATOR. ON INVESTIGATOR documented in this encounter Plan of Treatment Upcoming Encounters Date Type Specialty Care Team Description 09/10/2022 Office Visit Internal Medicine Logeais, MD Margot [address] [place] [phone] (Wo rk) documented as of this encounter Visit Diagnoses Not on filedocumented in this encounter
--- OUTSIDE RECORDS SUMMARY | 2022-07-30 20:15 | XMS_ITS | Encounter Summary ---
:1945 Author Organization [place] Address [address] [place] [address] Care Team Providers Name Role Phone Unavailable Primary Care Provider Unavailable Encounter Details Date Type Department Care Team Description 03/24/2010 Office Visit-[facility] Colon and Rectal Surgery Fauzia Hamilton MD [place] [address] [facility] Building 450 1st Floor, Clinic [address] [place] [address] Social History Tobacco Use Types Packs/Day Years Used Date Smoking Tobacco: Never Alcohol Use Standard Drinks/Week Comments Not Asked 0 (1 standard drink = 0.6 oz pure alcoho l) Sex Assigned at Date Recorded Female 12/20/2018 4:10 PM CDT documented as of this encounter Progress Notes Theresa Hamilton - 03/24/2010 8:15 AM CDT Knot Cutter: Theresa Hamilton Status: Final - Signature Encounter: 24 Mar 2010 Type: Colon Rectal Visit Colon & Rectal Surgery Clinic Department of Surgery [place] Mail Code 450 [address] [place] [address] [facility] First Floor, Clinic 1E [address] [place] [address] RE: Ramona Sheikh : 1945 MUSA: 03/24/2010 [...] cause of her symptoms. Theresa Hamilton M.D. Slicing Machine Tender Division of Colon and Rectal Surgery Department of Surgery Total time with the patient was 15 minutes, over half of it was spent counseling the patient. [id number] cc: Lisseth [place] M.D. [facility] ОЛЬГА [facility] [address] [place] [address] DD 03/24/2010 Electronically signed by:Theresa Hamilton M.D. Mar 28 2010 6:33AM ALARM INSTALLER Author documented in this encounter Plan of Treatment Upcoming Encounters Date Type Specialty Care Team Description 09/10/2022 Office Visit Internal Medicine LogeaMargot man MD [address] [place] [address] (Wo rk) documented as of this encounter Visit Diagnoses Not on filedocumented in this encounter
--- OUTSIDE RECORDS SUMMARY | 2022-07-30 20:15 | XMS_ITS | Encounter Summary ---
:1945 Author Organization [place] Address [address] [place] [address] Care Team Providers Name Role Phone Unavailable Primary Care Provider Unavailable Encounter Details Date Type Department Care Team Description 09/22/2010 Historic Results Physicians, Primary Mehreen Johnston, [facility] PhD 3rd Floor, Clinic [address]A [address] [place] [address] [facility] [place] [phone] Social History Tobacco Use Types Packs/Day Years [...] Visit Internal Medicine Logeais, MD Margot [address] [address] (Wo rk) documented as of this encounter Procedures Procedure Name Priority Date/Time Associated Comments Diagnosis LIPID PROFILE Routine 09/22/2010 9:12 AM Results for this ELECTRICAL SOLDERER procedure are i n the results section. ROUTINE UA WITH Routine 09/22/2010 9:07 AM Result s for this MICROSCOPIC ELECTRICAL SOLDERER procedure are i n the results section. documented in this encounter Results (ABNORMAL) Lipid panel (09/22/2010 9:12 AM ELECTRICAL SOLDERER) athologist Signature Cholesterol 219 (H) 0 - 200 MISYS mg/dL Comment: LDL Cholesterol is the primary guide to therapy. The NCEP recommends further evaluation of: patients with cholesterol <200 mg/dL if additional risk factors are present, cholesterol >240 mg/dL, triglycerides >150 mg/dL, or HDL <40 mg/dL. Triglycerides 178 (H) 0 - 150 mg/dL MISYS Comment: Fasting specimen HDL Cholesterol 66 50 - 110 mg/dL MISYS LDL Cholesterol Calculated 117 0 - 129 mg/dL MISYS Comment: LDL Cholesterol is the primary guide to therapy: LDL-cholesterol goal in high risk patients is <100 mg/dL and in very high risk patients is <70 mg/dL. VLDL-Cholesterol 36 (H) 0 - 30 mg/dL MISYS Cholesterol/HDL Ratio 3.3 0.0 - 5.0 MISYS Specimen Anatomical Collection Method Collection Time Receive d Time (Source) Location / / Volume Laterality 09/22/2010 9:12 AM 0 9:08 ELECTRICAL SOLDERER AM ELECTRICAL SOLDERER Mehreen Johnston MD PhD LAB - BLOOD ORDERABLES Performing Organization Address City/State/[facility] Code Phon e Number MISYS (ABNORMAL) Routine UA with microscopic (09/22/2010 9:07 AM ELECTRICAL SOLDERER) [facility] gist Method Time Signature Source Midstream MISYS Urine Color Urine Yellow MISYS Appearance Urine Clear MISYS Glucose Urine Negative NEG mg/dL MISYS Bilirubin Urine Negative NEG MISYS Ketones Urine Negative NEG mg/dL MISYS Specific [place] 1.018 1.003 - MISYS Urine 1.035 Blood Urine Small (A) NEG MISYS pH Urine 6.0 5.0 - 7.0 MISYS pH Protein Albumin Negative NEG mg/dL MISYS Urine Urobilinogen Normal 0.0 - 2.0 MISYS mg/dL mg/dL Nitrite Urine Negative NEG MISYS Leukocyte Negative NEG MISYS Esterase Urine WBC Urine <1 0 - 2 MISYS /HPF RBC Urine 6 (H) 0 - 2 MISYS /HPF Squamous 7 (H) 0 - 1 MISYS Epithelial /HPF /HPF Urine Mucous Urine Present (A) NEG /LPF MISYS Specimen Anatomical Collection Method Collection Time Receive d Time (Source) Location / / Volume Laterality 09/22/2010 9:07 AM 0 9:09 ELECTRICAL SOLDERER AM ELECTRICAL SOLDERER Mehreen Johnston MD PhD LAB - URINE ORDERABLES Performing Organization Address City/State/ZIP Code Phon e Number MISYS documented in this encounter Visit Diagnoses Not on filedocumented in this encounter
--- OUTSIDE RECORDS SUMMARY | 2022-07-30 20:15 | XMS_ITS | Encounter Summary ---
:1945 Author Organization [place] Address [address] [place] [address]. [place] [address] Care Team Providers Name Role Phone Unavailable Primary Care Provider Unavailable Encounter Details Date Type Department Care Team Description 09/25/2010 Results Only [place] P Carlota Acuña [place] [address] [place] [address] (Wo rk) Social History Tobacco Use Types [...] Office Visit Internal Medicine LogeaisMargot MD [address] [address] (Wo rk) documented as of this encounter Procedures Procedure Name Priority Date/Time Associated Diagnosis Comme nts CYTOLOGY NON MANAGER PATIENT Routine 09/25/2010 2:20 PM Resul ts for this CORRECTIONAL OFFICER procedure are i n the results section. documented in this encounter Results Cytology non endbander (09/25/2010 2:20 PM CORRECTIONAL OFFICER) Component Value Ref Test Analysis Performed At [facility] Method Time Signature Copath Report Patient Name: YIMI GARCIA MR#: [id number] Specimen #: [id number] Collected: 09/25/2010 Received: 09/25/2010 Reported: 09/26/2010 16:25 [...] Pinon M.D., ??[facility] Processed and screened at [facility] CLINICAL HISTORY: hematuria , GROSS: Urine: ??30 ml's of very yellow, clear fluid [facility] TESTING LAB LOCATION: [address] ?? [address] COLLECTION SITE: Client: ??[facility] Location: [facility] Specimen Anatomical Collection Method Collection Time Receive d Time (Source) Location / / Volume Laterality 09/25/2010 2:20 PM 0 2:20 CORRECTIONAL OFFICER PM CORRECTIONAL OFFICER Carlota Acuña MD LAB - [facility] CLINICAL SPECIM EN Performing Organization Address City/State/ZIP Code Phon e Number COPATH documented in this encounter Visit Diagnoses Not on filedocumented in this encounter
--- OUTSIDE RECORDS SUMMARY | 2022-07-30 20:15 | XMS_ITS | Encounter Summary ---
:1945 Author Organization [facility] Address [address] [place] [address]. [place] [address] Care Team Providers Name Role Phone Unavailable Primary Care Provider Unavailable Encounter Details Date Type Department Care Team Description 03/24/2010 Office Visit-[facility] DEPT Unknown, Provider Social History Tobacco Use Types Packs/Day Years Used Date Smoking Tobacco: Never Alcohol Use Standard Drinks/Week Comments Not Asked 0 (1 standard drink = 0.6 oz pure alcoho l) Sex Assigned at Date Recorded Female 12/20/2018 4:10 PM CDT documented as of this encounter Progress Notes Unknown, Provider - 03/24/2010 8:15 AM CDT Laborer Sawmill: Kamille Whelan Status: Amended, Final Encounter: 24 Mar 2010 Type: Rooming Note Reason For Visit F/U hemorrhoids. Do you have any other appointments, tests or procedures within the [facility] system for this same day? No. Pain Eval Current history of pain associated with this visit is denied. Active Problems Hemorrhoids (455.6) Hyperlipidemia (272.4) Hypertension (401.9) Osteoarthritis Of The Hip (715.95) Rest Tremor - Head Symptomatic Menopause (627.2). Personal Hx No Alcohol Use No Secondhand Tobacco Smoke In Home No Tobacco Use. Vital Signs Recorded by jlor on 24 Mar 2010 08:31 AM Height: 66.5 in, Weight: 164.2 lb, BMI: 26.1 kg/m2. Recorded by jlor on 24 Mar 2010 08:38 AM BP:115/76, RUE, Sitting, HR: 75 b/min, R Radial, O2 Sat: 97 (%SpO2), RA. Amended By: Kamille Whelan ; 03/24/2010 8:38 AM IMPLEMENTATION LEAD. Allergies Codeine Derivatives Morphine Derivatives. Current Meds MIRALAX POWD 3350NF;17 grams tid; Rx Lisinopril 20 MG Tablet;TAKE 1 TABLET DAILY.; Rx Alvord 3 1000 MG Capsule;TAKE 2 CAPSULE TWICE [...] TABLET DAILY.; RPT AAA-MED RECONCILE;per pt.; RPT Amended By: Kamille Whelan ; 03/24/2010 8:39 AM IMPLEMENTATION LEAD. Med list offered and patient declined. Signature Signed By: Kamille Whelan ; 03/24/2010 8:31 AM IMPLEMENTATION LEAD. Signed By: Kamille Whelan ; 03/24/2010 8:39 AM IMPLEMENTATION LEAD. documented in this encounter Plan of Treatment Upcoming Encounters Date Type Specialty Care Team Description 09/10/2022 Office Visit Internal Medicine Margot Branham MD [address] [place] [address] (Wo rk) documented as of this encounter Visit Diagnoses Not on filedocumented in this encounter
--- OUTSIDE RECORDS SUMMARY | 2022-07-30 20:15 | XMS_ITS | Encounter Summary ---
:1945 Author Organization [facility] Address [address] [place] [address]. [place] [address] Care Team Providers Name Role Phone Unavailable Primary Care Provider Unavailable Reason for Visit Reason Comments Urgent Care Sinus Problem Encounter Details Date Type Department Care Team Description 07/12/2010 Office Visit [facility] Ruby Staton Acute sin usitis Urgent Care [place] CLAUDIA Mena MAORI LIAISON ADVISER (Primary Dx) [address] [address] [phone] Social History Tobacco Use Types Packs/Day Years [...] Visit Internal Medicine Logeais, MD Margot [address] [address] (Wo rk) documented as of this encounter Visit Diagnoses Diagnosis Acute sinusitis - Primary Acute sinusitis, unspecified documented in this encounter
--- OUTSIDE RECORDS SUMMARY | 2022-07-30 20:15 | XMS_ITS | Encounter Summary ---
:1945 Author Organization [facility] Address [address] [place] [address] Care Team Providers Name Role Phone Unavailable Primary Care Provider Unavailable Encounter Details Date Type Department Care Team Description 09/24/2010 Results Only RESULTS [facility] Mehreen Johnston MD PhD [address] [place] [phone] (Wo rk) Social History Tobacco Use Types [...] Visit Internal Medicine LogeaMargot man MD 909 [facility] [address] [place], [place] [address] (Wo rk) documented as of this encounter Procedures Procedure Name Priority Date/Time Associated Diagnosis Comme nts PAP IMAGED THIN Routine 09/24/2010 12:00 AM Resul ts for this LAYER SCREEN SUPERVISOR BIT AND SHANK DEPARTMENT procedure are i n the results section. documented in this encounter Results PAP imaged thin layer screen (09/24/2010 12:00 AM SUPERVISOR BIT AND SHANK DEPARTMENT) Component Value Ref Test Analysis Performed At [facility] Range Method Time Signature PAP NIL COPATH Copath Report COPATH Patient Name: YIMI GARCIA MR#: [id number] Specimen #: [id number] Collected: 09/24/2010 Received: 09/24/2010 Reported: 09/26/2010 10:32 Ordering Phy(s): MEHREEN JOHNSTON SPECIMEN/STAIN PROCESS: Pap imaged thin layer prep screening (Surepath, FocalPoint w ith guided screening) ? Pap-Cyto x 1, Reflex HPV x 1 SOURCE: Cervical ---- Pap imaged thin layer prep screening (Surepath, FocalPoint with guided screening) SPECIMEN ADEQUACY: Satisfactory for evaluation. -Transformation zone component absent. CYTOLOGIC INTERPRETATION: Negative for Intraepithelial Lesion or Malignancy Electronically signed out by: VINNIE Trimble (ASCP) Processed and screened at [facility] CLINICAL HISTORY: Papanicolaou Test Limitations: ??Cervical cytology is a scre ening test with limited sensitivity; regular screening is critical for cancer prevention; Pap tests are primarily effective for the diagnosis/prevention of squamous cell carcinoma, not adenoca rcinomas or other cancers. TESTING LAB LOCATION: [facility], [address] ??[address] COLLECTION SITE: Client: ??[facility] Location: [facility] (B) Specimen (Source) Anatomical Collection Method Collection Time Re ceived Time Location / / Volume Laterality 09/24/2010 09/24/2010 1:56 PM SUPERVISOR BIT AND SHANK DEPARTMENT Mehreen Johnston MD PhD LAB - [facility] CLINICAL SPECIM EN Performing Organization Address City/State/ZIP Code Phon e Number COPATH documented in this encounter Visit Diagnoses Not on filedocumented in this encounter
--- OUTSIDE RECORDS SUMMARY | 2022-07-30 20:15 | XMS_ITS | Encounter Summary ---
:1945 Author Organization [place] Address [address] [place] [address]. [place] [address] Care Team Providers Name Role Phone Unavailable Primary Care Provider Unavailable Encounter Details Date Type Department Care Team Description 12/26/2009 Office Visit-[facility] INTERFACE [facility] DEPT Provider, [facility] Nurs e Social History Tobacco Use Types Packs/Day Years Used Date Smoking Tobacco: Never Alcohol Use Standard Drinks/Week Comments Not Asked 0 (1 standard drink = 0.6 oz pure alcoho l) Sex Assigned at Date Recorded Female 12/20/2018 4:10 PM CDT documented as of this encounter Progress Notes Provider, [facility] Nurse - 12/26/2009 8:00 AM CDT Chart Computer: Tiff Mcdonald Status: Final Encounter: 26 Dec [...] TABLET DAILY DIRECTED 800mg per day; RPT [place]worth 3 1000 MG Capsule;TAKE 2 CAPSULE TWICE DAILY; RPT Rggpxvdtetj-[id number] 500-250-250 MG Capsule;TAKE 1 CAPSULE EVERY 12 HOURS; RPT AAA-MED RECONCILE;Medications reviewed with the patient.; RPT. Signature Signed By: Tiff Mcdonald CMA; 12/26/2009 8:02 AM CHAIR CANER. documented in this encounter Plan of Treatment Upcoming Encounters Date Type Specialty Care Team Description 09/10/2022 Office Visit Internal Medicine LogeaMargot man MD [address] [phone] (Wo rk) documented as of this encounter Visit Diagnoses Not on filedocumented in this encounter
--- OUTSIDE RECORDS SUMMARY | 2022-07-30 20:15 | XMS_ITS | Encounter Summary ---
:1945 Author Organization [facility] Address [address] [place] [address] Care Team Providers Name Role Phone Unavailable Primary Care Provider Unavailable Encounter Details Date Type Department Care Team Description 02/24/2010 Office Visit-[facility] Women's Health Mehreen Green Phillips-Wangensteen MD PhD [address] 1st Floor, Clinic [address] [place] [address] (Wo rk) [address] [phone] Social History Tobacco Use Types Packs/Day Years Used Date Smoking Tobacco: Never Alcohol Use Standard Drinks/Week Comments Not Asked 0 (1 standard drink = 0.6 oz pure alcoho l) Sex Assigned at Date Recorded Female 12/20/2018 4:10 PM CDT documented as of this encounter Progress Notes Mehreen Johnston - 02/24/2010 4:00 PM CDT Industrial Illuminating Engineer: Mehreen Johnston Status: Final - Signature Encounter: 24 Feb 2010 Type: [facility] Visit Family Medicine & Community Health Department of Family Medicine [place] Mail Code [address] [place] [address] Office: [phone] Women[facility] [place] [facility] First Floor, Clinic [address] [place] [address] [place] [address] Phone:\[phone] Fax:\[phone] RE: Yimi Garcia : 1945 MUSA: 02/24/2010 OUTPATIENT VISIT NOTE REASON FOR VISIT: Osteoporosis consult. HISTORY OF PRESENT ILLNESS: This is a 64-year-old 1, para 1-0-0-1 female who comes in for a osteoporosis consult. Patient has had a recent DEXA in November,, here at the [facility]. Her previous ones have been at [facility] in 2007. She has not had any [...] in the past. She was on it bls-pve-h-half years,then off of it, and resumed it [...] 300 mg a day, multivitamins every other, Glouster-3 1000 mg two capsules a day, vitamin D3 1000 IU three a day. Previously, she was using Esterase cream. ALLERGIES TO MEDICINE: Codeine derivatives and morphine derivatives. HABITS: Nonsmoker. FAMILY HISTORY: Positive for her mother with osteoporosis and colon cancer and two sisters also had osteoporosis. SOCIAL HISTORY: She is . 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 REVIEW OF SYSTEMS: No history of thyroid disease. She had a recent TSH in September,, which was negative. She has had a basic metabolic profile in September,. Creatinine, kidney function was normal. She has been to the [facility] and had a full cardiac evaluation with a cholesterol of 208, LDL 121, HDL 65, triglycerides 111. Her last pelvic was in August at [facility] . Her liver enzymes in November,, were [...] to maximize her conservative management getting adequate [id number] mg a day in divided doses, vitamin [...] was in counseling. Mehreen Johnston MD, PhD charge account clerk [facility] [phone] or [phone] SA:11 DD 02/24/2010 Electronically signed by:Mehreen Johnston M.D.,PhD Feb 26 2010 3:19PM FITNESS FLOOR ATTENDANT Mehreen Johnston - 02/24/2010 4:00 PM CDT Industrial Illuminating Engineer: Mehreen Johnston Status: Final Encounter: 24 Feb 2010 Type: [facility] Visit Reason For Visit YIMI GARCIA is a 64 year old female who presents today for an osteoporosis follow up. Do you have any other appointments, tests or procedures within the [facility] system for this same day? No[ ] [...] TABLET DAILY DIRECTED 800mg per day; RPT Glouster 3 1000 MG Capsule;TAKE 2 CAPSULE TWICE DAILY; RPT Gqpxqzxkemd-Qjakvlfqtgf-ZFI 500-250-250 MG Capsule;TAKE 1 CAPSULE EVERY 12 [...] By: Mehreen Johnston M.D.,PhD; 02/24/2010 6:06 PM FITNESS FLOOR ATTENDANT. documented in this encounter Plan of Treatment Upcoming Encounters Date Type Specialty Care Team Description 09/10/2022 Office Visit Internal Medicine LogeaisMargot MD [address] [place] [phone] (Wo rk) documented as of this encounter Visit Diagnoses Not on filedocumented in this encounter
--- OUTSIDE RECORDS SUMMARY | 2022-07-30 20:16 | XMS_ITS | Encounter Summary ---
:1945 Author Organization [facility] Address [address] [place] [address]. [place] [address] Care Team Providers Name Role Phone Lisseth Vang MD Primary Care Provider Mehreen Johnston MD PhD Primary Care Provider [phone] Encounter Details Date Type Department Care Team Description 08/23/2009 Office Visit-[facility] Women's Health Yasmeen JeffClarice Alegria MD Building [address] [place] [address] 1st Floor, Clinic 1C [address] [place] [address] [place], [place] [phone] (Wo rk) [address] [phone] Social History Tobacco Use Types Packs/Day Years Used Date Smoking Tobacco: Never Alcohol Use Standard Drinks/Week Comments Not Asked 0 (1 standard drink = 0.6 oz pure alcoho l) Sex Assigned at Date Recorded Female 12/20/2018 4:10 PM CDT documented as of this encounter Progress Notes Yasmeen Lang - 08/23/2009 3:30 PM CST Blood Donor Recruiter Supervisor: Yasmeen Lang Status: Final Encounter: 23 Aug 2009 Type: U Spec Visit Reason For Visit Follow Up US and EMB Contraception: NA. HPI Here for EMB after cytotec. 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 Had pap at [facility]- I looked at letter from them stating [...] this clinic. Needs to have refilled by [facility] MD; Rx Prometrium 100 MG Capsule;TAKE 1 CAPSULE DAILY at bedtime. No further refills from this clinic. Musthave refilled by [facility] MD.; Rx Ibuprofen 600 MG Tablet;TAKE 1 [...] Astragalus CAPS;; RPT. Vital Signs Recorded by DosYogures on 23 Aug 2009 03:40 PM BP:151/83, [...] BID for cramping. . 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 U/S showed 2.3 mm EM stripe. Plan 1. EMB today- likely insufficient tissue 2. Pap today as well 3. will call w rsult. Likely insufficient cells. If so, will need to go to OR for D and C. Signature Signed By: Debbie Carter MA; 08/23/2009 3:41 PM ENERGY INFRASTRUCTURE ENGINEER. Signed By: Yasmeen Lang M.D.; 08/23/2009 4:25 PM ENERGY INFRASTRUCTURE ENGINEER. GY INFRASTRUCTURE ENGINEER documented in this encounter Plan of Treatment Upcoming Encounters Date Type Specialty Care Team Description 09/10/2022 Office Visit Internal Medicine Margot Branham MD [address] [address] (Wo rk) documented as of this encounter Visit Diagnoses Not on filedocumented in this encounter Care Teams Spray Stainer Relationship Specialty Start Date End Date Lisseth Vang MD PCP - General 02/05/11 03/18/[address] [facility] [address] [place], [place] [address] Mehreen Johnston MD PhD PCP - General Family Practice 03/19/11 11/15/11 documented as of this encounter
--- OUTSIDE RECORDS SUMMARY | 2022-07-30 20:16 | XMS_ITS | Encounter Summary ---
:1945 Author Organization [facility] Address [address] [place] [address]. [place] [address] Care Team Providers Name Role Phone Unavailable Primary Care Provider Unavailable Reason for Visit Reason Onset Date Comments Results 06/24/2009 Encounter Details Date Type Department Care Team Description 06/24/2009 Telephone [facility] Urgent Parul Saha PA-C Results Care [place] [address] [place] [address] [place], [place] [phone] Social History Tobacco Use Types Packs/Day Years [...] Office Visit Internal Medicine LogeaMargot man MD [address] [address] (Wo rk) documented as of this encounter Visit Diagnoses Not on filedocumented in this encounter
--- OUTSIDE RECORDS SUMMARY | 2022-07-30 20:16 | XMS_ITS | Encounter Summary ---
:1945 Author Organization [facility] Address [address] [place] [address]. [place] [address] Care Team Providers Name Role Phone Unavailable Primary Care Provider Unavailable Encounter Details Date Type Department Care Team Description 11/07/2009 Results Only [facility] Mehreen Johnston, [facility] Results MD Decker [address] [place] [address] (Wo rk) Social History Tobacco Use Types [...] Visit Internal Medicine Logeais, MD Margot 909 [facility] [address] [place], [place] [phone] (Wo rk) documented as of this encounter Procedures Procedure Name Priority Date/Time Associated Diagnosis Comme [facility] DEXA BONE Routine 11/07/2009 5:21 PM Results f or this DENSITY, >=1 SITE, SUPERVISOR REAL ESTATE OFFICE procedure are in AXIAL SKELETON the results section. documented in this encounter Results DEXA,BONE DENSITY,AXIAL SKELETON (11/07/2009 5:21 PM SUPERVISOR REAL ESTATE OFFICE) Anatomical Region Laterality Modality Other Specimen (Source) Anatomical Collection Method Collection Time Re ceived Time Location / / Volume Laterality 11/07/2009 5:21 PM SUPERVISOR REAL ESTATE OFFICE Impressions 11/11/2009 11:15 AM SUPERVISOR REAL ESTATE OFFICE Conclusions: Patient: Ramona Sheikh ? DOScan: 11/07/2009 [...] ? Clinical correlation recommended. ? Principal result downstairs maid: Anh Ascencio MD, [facility] Division of Diabetes, Endocrinology and Metabolism [facility] [phone] ? IF THE RESULTS TABLE IN FCIS OR IMAGECAS T DOES NOT FORMAT PROPERLY, ?? TO VIEW THE COMPLETE READABLE TABLE, GO TO: ?? [facility] (CHART VIEWER), DXA SCAN - Bu rmeister Mehreen Johnston MD PhD SPECIAL IMAGING STUDIES documented in this encounter Visit Diagnoses Not on filedocumented in this encounter
--- OUTSIDE RECORDS SUMMARY | 2022-07-30 20:16 | XMS_ITS | Encounter Summary ---
:1945 Author Organization [facility] Address [address] [place] [address] Care Team Providers Name Role Phone Unavailable Primary Care Provider Unavailable Encounter Details Date Type Department Care Team Description 10/03/2009 Historic Results Physicians, Primary Mehreen Johnston, [facility] PhD 3rd Floor, Clinic [address] [place] [address] [facility] [place] [phone] Social History Tobacco Use Types Packs/Day Years [...] Visit Internal Medicine Logeais, MD Margot [address] [address] (Wo rk) documented as of this encounter Procedures Procedure Name Priority Date/Time Associated Comments Diagnosis VITAMIN D DEFICIENCY Routine 10/03/2009 1:35 PM R esults for this SCREENING INTRUSION ANALYST procedure are i n the results section. TSH WITH FREE T4 Routine 10/03/2009 1:35 PM Resul ts for this REFLEX INTRUSION ANALYST procedure are i n the results section. HEMOGLOBIN Routine 10/03/2009 1:35 PM Results f or this INTRUSION ANALYST procedure are i n the results section. BASIC METABOLIC PANEL Routine 10/03/2009 1:35 PM Results for this INTRUSION ANALYST procedure are i n the results section. ROUTINE UA WITH Routine 10/03/2009 12:23 Results for this MICROSCOPIC PM INTRUSION ANALYST procedure are i n the results section. URINE CULTURE Routine 10/03/2009 12:23 Results fo r this PM INTRUSION ANALYST procedure are i n the results section. documented in this encounter Results Basic metabolic panel (10/03/2009 1:35 PM INTRUSION ANALYST) athologist Signature Sodium 138 133 - 144 [...] Volume Laterality 10/03/2009 1:35 PM 9 1:29 INTRUSION ANALYST PM INTRUSION ANALYST Mehreen Johnston MD PhD LAB - BLOOD ORDERABLES Performing Organization Address City/State/ZIP Code Phon e Number MISYS Hemoglobin (10/03/2009 1:35 PM INTRUSION ANALYST) athologist Signature Hemoglobin 15.6 11.7 - 15.7 MISYS g/dL Specimen Anatomical Collection Method Collection Time Receive d Time (Source) Location / / Volume Laterality 10/03/2009 1:35 PM 9 1:29 INTRUSION ANALYST PM INTRUSION ANALYST Mehreen Johnston MD PhD LAB - BLOOD ORDERABLES Performing Organization Address City/State/ZIP Code Phon e Number MISYS TSH with free T4 reflex (10/03/2009 1:35 PM INTRUSION ANALYST) athologist Signature TSH 0.95 0.4 - 5.0 [place] mU/L Specimen Anatomical Collection Method Collection Time Receive d Time (Source) Location / / Volume Laterality 10/03/2009 1:35 PM 9 1:29 INTRUSION ANALYST PM INTRUSION ANALYST Mehreen Johnston MD PhD LAB - BLOOD ORDERABLES Performing Organization Address City/State/ZIP Code Phon e Number MISYS Vitamin D deficiency screening (10/03/2009 1:35 PM INTRUSION ANALYST) P athologist Signature 25 [place] Vit D2 <5 ug/L [place] 25 [place] Vit D3 34. ug/L MIS[place] 25 [place] Vit D <39 30 - 75 [place]IS[place] total ug/L Comment: Season, race, dietary intake, and treatm ent affect the concentration of 87-zxkkpyp-Gtglgmy D. Values may decrea se during winter months and increase during summer months. Values less than 30 ug/L may indicate Vitamin D deficiency. Specimen Anatomical Collection Method Collection Time Receive d Time (Source) Location / / Volume Laterality 10/03/2009 1:35 PM 9 1:29 INTRUSION ANALYST PM INTRUSION ANALYST Mehreen Johnston MD PhD LAB - BLOOD ORDERABLES Performing Organization Address City/[facility] Code Phon e Number MISYS (ABNORMAL) Routine UA with microscopic (10/03/2009 12:23 PM INTRUSION ANALYST) Patholo gist Method Time Signature Source Midstream MISYS Urine Color Urine Yellow MISYS Appearance Urine Clear MISYS Glucose Urine Negative NEG mg/dL MISYS Bilirubin Urine Negative NEG MISYS Ketones Urine Negative NEG mg/dL MISYS Specific [place] 1.022 1.003 - MISYS Urine 1.035 Blood [...] / Volume Laterality 10/03/2009 12:23 10/03/2009 PM INTRUSION ANALYST 12:25 PM INTRUSION ANALYST Mehreen Johnston MD PhD LAB - URINE ORDERABLES Performing Organization Address City/[facility] Phon e Number MISYS Urine culture (10/03/2009 12:23 PM INTRUSION ANALYST) [facility] Method Time Signature Specimen Midstream MISYS Description Urine Culture Micro No growth MISYS Micro Report FINAL MISYS Status 10/04/2009 Specimen Anatomical Collection Method Collection Time Receive d Time (Source) Location / / Volume Laterality 10/03/2009 12:23 10/03/2009 PM INTRUSION ANALYST 12:25 PM INTRUSION ANALYST Mehreen Johnston MD PhD LAB - MICRO GENERAL ORDERABL ES Performing Organization Address City/State/[facility] Phon e Number MISYS documented in this encounter Visit Diagnoses Not on filedocumented in this encounter
--- OUTSIDE RECORDS SUMMARY | 2022-07-30 20:16 | XMS_ITS | Encounter Summary ---
:1945 Author Organization [facility] Address [address] [place] [address]. [place] [address] Care Team Providers Name Role Phone Unavailable Primary Care Provider Unavailable Encounter Details Date Type Department Care Team Description 09/25/2009 Office Visit-[facility] Jorge Reyes Physicians Heart MD Nakul Barrera PHYSICIA [facility] [address] [facility] 4th Floor, Clinic [address]B [address] [place] [address] Social History Tobacco Use Types Packs/Day Years Used Date Smoking Tobacco: Never Alcohol Use Standard Drinks/Week Comments Not Asked 0 (1 standard drink = 0.6 oz pure alcoho l) Sex Assigned at Date Recorded Female 12/20/2018 4:10 PM CDT documented as of this encounter Progress Notes Jorge Reyes Bruce - 09/25/2009 8:00 AM CST Pressure Control Supervisor: Jorge Reyes Status: Final Encounter: 25 Sep [...] Complex 1 Tablet;; RPT Astragalus CAPS;; RPT [place] 3 CAPS;TAKE DIRECTED.; RPT Estring 2 MG [...] By: Jorge Reyes M.D.; 09/25/2009 8:41 AM CERTIFIED ENDOSCOPY TECHNICIAN. IFIED ENDOSCOPY TECHNICIAN documented in this encounter Plan of Treatment Upcoming Encounters Date Type Specialty Care Team Description 09/10/2022 Office Visit Internal Medicine Logeais, MD Margot [address] [address] (Wo rk) documented as of this encounter Visit Diagnoses Not on filedocumented in this encounter
--- OUTSIDE RECORDS SUMMARY | 2022-07-30 20:16 | XMS_ITS | Encounter Summary ---
:1945 Author Organization [facility] Address [address] [place] [address]. [place] [address] Care Team Providers Name Role Phone Unavailable Primary Care Provider Unavailable Encounter Details Date Type Department Care Team Description 09/25/2009 Historic Results [facility]-Jody Beyer PHYSICIANS [address] [place] [address] [address] [place] [address] (Wo rk) Social History Tobacco [...] Office Visit Internal Medicine LogeaisMargot MD [address] [address] (Wo rk) documented as of this encounter Procedures Procedure Name Priority Date/Time Associated Diagnosis Comme nts LIPID PROFILE Routine 09/25/2009 9:02 AM Results for this NETWORK PROFESSIONAL procedure are i n the results section . documented in this encounter Results (ABNORMAL) Lipid panel (09/25/2009 9:02 AM NETWORK PROFESSIONAL) P athologist Signature Cholesterol 208 (H) 0 [...] / Volume Laterality 09/25/2009 9:02 AM 9:13 NETWORK PROFESSIONAL AM NETWORK PROFESSIONAL Jorge Reyes MD LAB - BLOOD ORDERABLES Performing Organization Address City/State/ZIP Code Phon e Number MISYS documented in this encounter Visit Diagnoses Not on filedocumented in this encounter
--- OUTSIDE RECORDS SUMMARY | 2022-07-30 20:16 | XMS_ITS | Encounter Summary ---
:1945 Author Organization [facility] Address [address] [place] [address]. [place] [address] Care Team Providers Name Role Phone Unavailable Primary Care Provider Unavailable Encounter Details Date Type Department Care Team Description 11/04/2009 Consultation RESULTS P Carri [place], AuD XXX RESIGNED XXX 420 [facility] EMERGENCY DEPARTMENT 106 [place], [place] [address] (Wo rk) Social History Tobacco Use Types [...] with Dr. Brewer for medical management. Call [phone] ifthere are questions regarding these results or recommendations. Electronically signed on 11/07/2009 11:55 by ALYCIA ACHARYA MT: say Name: YIMI GARCIA MRN: [id number] Account: [id number] : 1945 Visit Date: 11/04/2009 Sex: F Age: 64 Document: [id number] TER TECHNICIAN documented in this encounter Plan of Treatment Upcoming Encounters Date Type Specialty Care Team Description 09/10/2022 Office Visit Internal Medicine Magrot Branham MD [address] [address] (Wo rk) documented as of this encounter Procedures Procedure Name Priority Date/Time Associated Comments Diagnosis ZZ CONSULT 11/04/2009 8:51 AM Results f or this OTOLARYNGOLOGY (ENT) THEATER TECHNICIAN procedu re are in the results section. documented in this encounter Results CONSULT OTOLARYNGOLOGY (ENT) (11/04/2009 8:51 AM THEATER TECHNICIAN) Transcriptions Giselle [place] - 11/04/2009 9:01 AM THEATER TECHNICIAN FINAL AUDIOLOGY OUTPATIENT REPORT BACKGROUND INFORMATION: Yimi [...] left ear. Ms. Garcia will follow up [facility] Dr. Brewer for medical management. Call [phone] if there are questions regarding these results or recommendations. Electronically signed on 11/07/2009 11: 55 by ALYCIA ACHARYA MT: say Name: YIMI GARCIA Account: [id number] : 1945 Visit Date: 11/04/2009 Sex: F Age: 64 Document: [id number] Giselle Schmid REFERRAL documented in this encounter Visit Diagnoses Not on filedocumented in this encounter
--- OUTSIDE RECORDS SUMMARY | 2022-07-30 20:16 | XMS_ITS | Encounter Summary ---
:1945 Author Organization [facility] Address [address] [place] [address]. [place] [address] Care Team Providers Name Role Phone Unavailable Primary Care Provider Unavailable Reason for Visit Reason Comments Establish Care shingles vaccine Encounter Details Date Type Department Care Team Description 09/23/2009 Office Visit [facility] Maranda Lowry les Vaccine (Primary Dx); Clinic Delphi Lynn, MD Elevated Blood Pressure Reading without Diagnosis of Hypertension 2[address] [facility] [address] [place] [address] [place] [phone] Social History Tobacco Use Types Packs/Day Years Used Date Smoking Tobacco: Never Alcohol Use Standard Drinks/Week Comments Not Asked 0 (1 standard drink = 0.6 oz pure alcoho l) Sex Assigned at Date Recorded Female 12/20/2018 4:10 PM CDT documented as of this encounter Last Filed Vital Signs Vital Sign Reading Time Taken Comments Blood Pressure 150/84 09/23/2009 4:45 PM CASTABLES WORKER Pulse 72 09/23/2009 4:45 PM CASTABLES WORKER Temperature - - Respiratory Rate - - Oxygen Saturation - - Inhaled Oxygen Concentration - - Weight 78 kg (172 lb) 09/23/2009 4:45 PM CASTABLES WORKER Height - - Body Mass Index - - documented in this encounter Progress Notes Maranda Lowry - 09/23/2009 5:08 PM CST SUBJECTIVE: Ramona Sheikh, a 64 year old female scheduled an appointment to discuss the following issues: Chief Complaint Patient presents with ??? 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 Caffeine. 1 cup daily. No salt. Eats healthy fats. Fish oil. Exercise - walks 2 miles 1 x wk. With some short walks. Plans to go to [facility]. Good cholesterol was high & bad cholesterol in normal range Medical, social, surgical, and family histories reviewed. ROS: R: NEGATIVE for significant SOB CV: NEGATIVE for chest pain, palpitations or peripheral edema OBJECTIVE: BP 160/82 Pulse 72 Wt 172 lb (78.019 kg) EXAM: GENERAL APPEARANCE: healthy, alert and no distress RESP: lungs clear to auscultation - no rales, rhonchi or wheezes CV: regular rates and rhythm, normal S1 S2, no S3 or S4 and no murmur, click or rub - PSYCH: mentation appears normal. and anxious ASSESSMENT/PLAN: V05.4N Shingles Vaccine (primary encounter diagnosis) Comment: Plan: ZOSTER VACC LIVE SUBQ NJX 796.2 Elevated Blood Pressure Reading without Diagnosis of Hypertension Comment: Plan: Walking Weight loss Stress reduction Patient is asked to monitor BP at home or work, several times per month and return with written values at next office visit. Recheck 1 to 2 months. ABLES WORKER documented in this encounter Nursing Notes 09/23/2009 4:45 PM CST >> VIVIEN ANTONIO Mon Sep 23, 2009 4:48 PM Patient presents with: Establish Care - shingles vaccine today. Initial BP 160/82 Pulse 72 Wt 172 lb (78.019 kg) There is no height on file to calculate BMI.. BP completed using cuff size: regular Vivien Antonio RN documented in this encounter Plan of Treatment Upcoming Encounters Date Type Specialty Care Team Description 09/10/2022 Office Visit Internal Medicine Logeais, MD Margot [address] [place] [address] (Wo rk) documented as of this encounter Visit Diagnoses Diagnosis Shingles vaccine - Primary Need for prophylactic vaccination and in oculation against other viral diseases Elevated blood pressure reading without diagnosis of hypertension documented in this encounter
--- OUTSIDE RECORDS SUMMARY | 2022-07-30 20:16 | XMS_ITS | Encounter Summary ---
:1945 Author Organization [facility] Address [address] [place] [address]. [place] [address] Care Team Providers Name Role Phone Unavailable Primary Care Provider Unavailable Encounter Details Date Type Department Care Team Description 12/10/2009 Office Visit-[facility] Ear, Nose and Throat Ismael Brewer MD Clinic 420 [facility] 8th Floor, Clinic 8A [address] [place] [address] [address] Social History Tobacco Use Types Packs/Day Years Used Date Smoking Tobacco: Never Alcohol Use Standard Drinks/Week Comments Not Asked 0 (1 standard drink = 0.6 oz pure alcoho l) Sex Assigned at Date Recorded Female 12/20/2018 4:10 PM CDT documented as of this encounter Progress Notes Honey Brewer C - 12/10/2009 8:00 AM CST [employer]: Honey Brewer Status: Final - Signature Encounter: 10 Dec 2009 Type: ENT Visit Department of Otolaryngology--Head and Neck Surgery [place] Mail Code 396 [address] [place] [address] Office: [address] RE: Ramona Sheikh : 1945 MUSA: 12/10/2009 HISTORY OF PRESENT ILLNESS: Ramona Sheikh is here for follow-up of turbinate cautery. She is very happy with the result. Her breathing has improved. She is no longer needing any decongestants whatsoever. Her second complaint is tinnitus. She has bilateral known low-frequency sensorineural hearing loss. An audiogram was performed recently. She is concerned about her tinnitus. It bothers her most in quiet situations. ASSESSMENT AND PLAN: We talked about staying away from nonsteroidal anti- inflammatories (NSAIDs). Shwetha talked to her about using white noise to mask her tinnitus, and she is interested in tinnitus retraining therapy. We provided information regarding tinnitus retraining therapy. I will see her backas needed for her nasal issues and tinnitus. Honey Brewer M.D. Otolaryngology-Head & Neck Surgery HCB:tej DD 12/10/2009 Electronically signed by:Honey Brewer MD Dec 10 2009 12:13PM LIQUID FERTILIZER SERVICER ID FERTILIZER SERVICER documented in this encounter Plan of Treatment Upcoming Encounters Date Type Specialty Care Team Description 09/10/2022 Office Visit Internal Medicine LogeaisMargot MD [address] [address] (Wo rk) documented as of this encounter Visit Diagnoses Not on filedocumented in this encounter
--- OUTSIDE RECORDS SUMMARY | 2022-07-30 20:16 | XMS_ITS | Encounter Summary ---
:1945 Author Organization [facility] Address [address] [place] [address]. [place] [address] Care Team Providers Name Role Phone Unavailable Primary Care Provider Unavailable Encounter Details Date Type Department Care Team Description 08/23/2009 Results Only RESULTS P Aure Chong MD [address] [place], [place] [address] (Wo rk) Social History Tobacco Use Types [...] Office Visit Internal Medicine LogeaisMargot MD [address] [address] (Wo rk) documented as of this encounter Procedures Procedure Name Priority Date/Time Associated Diagnosis Comme nts CL AFF SURGICAL Routine 08/23/2009 12:00 AM Resul ts for this PATHOLOGY FOILING MACHINE ADJUSTER procedure are i n the results section. HCL PAP THIN LAYER Routine 08/23/2009 12:00 AM Re sults for this SCREEN FOILING MACHINE ADJUSTER procedure are i n the results section. documented in this encounter Results A THIN LAYER PAP SCREEN (08/23/2009 12:00 AM FOILING MACHINE ADJUSTER) Component Value Ref Test Analysis Performed At [facility] Range Method Time Signature PAP NIL COPATH Copath Report COPATH Patient Name: YIMI GARCIA MR#: [id number] Specimen #: [id number] Collected: 08/23/2009 Received: 08/26/2009 Reported: 09/02/2009 10:20 [...] Prather M.D., [facility] Processed and screened at [facility] CLINICAL HISTORY: LMP: age 53 Post Menopausal, Previous normal pap Date of Last Pap: 05/01/08 Other: Abnormal in 06/2009 with endometrial cells, insufficie nt cytology for cervical cells, TESTING LAB LOCATION: [facility], [address] ??[phone] COLLECTION SITE: Client: ??[facility] Location: [facility] (B) Specimen (Source) Anatomical Collection Method Collection Time Re ceived Time Location / / Volume Laterality 08/23/2009 08/26/2009 10:5 5 AM FOILING MACHINE ADJUSTER Aure Chong MD LABORATORY Performing Organization Address City/State/ZIP Code Phon e Jovana DENG SURGICAL PATHOLOGY (08/23/2009 12:00 AM FOILING MACHINE ADJUSTER) Component Value Ref Test Analysis Performed At [facility] Range Method Time Signature Copath Report Patient Name: YIMI GARCIA MR#: [id number] Specimen #: [id number] Collected: 08/23/2009 Received: 08/26/2009 Reported: 08/27/2009 16:58 Ordering Phy(s): AURE CHONG SPECIMEN(S): Endometrial biopsy FINAL DIAGNOSIS: Endometrial biopsy: ? - Inactive endometrial fragments with no evidence of malignancy. Electronically signed out by: Greta Recio M.D., [facility] CLINICAL HISTORY: 64 year old female with [...] Rima Recio MD/nydia 08/27/09 TESTING LAB LOCATION: [facility], [address] ?? [phone] COLLECTION SITE: Client: [facility] Location: [facility] (B) Specimen (Source) Anatomical Collection Method Collection Time Re ceived Time Location / / Volume Laterality 08/23/2009 08/26/2009 9:00 AM FOILING MACHINE ADJUSTER Aure Chong MD LABORATORY Performing Organization Address City/State/ZIP Code Phon e Number COPATH documented in this encounter Visit Diagnoses Not on filedocumented in this encounter
--- OUTSIDE RECORDS SUMMARY | 2022-07-30 20:16 | XMS_ITS | Encounter Summary ---
:1945 Author Organization [facility] Address [address] [place] [address]. [place] [address] Care Team Providers Name Role Phone Unavailable Primary Care Provider Unavailable Encounter Details Date Type Department Care Team Description 07/22/2009 Office Visit-[facility] INTERFACE [facility] DEPT Provider, [facility] Nurs e Social History Tobacco Use Types Packs/Day Years Used Date Smoking Tobacco: Never Alcohol Use Standard Drinks/Week Comments Not Asked 0 (1 standard drink = 0.6 oz pure alcoho l) Sex Assigned at Date Recorded Female 12/20/2018 4:10 PM CDT documented as of this encounter Progress Notes Provider, [facility] Nurse - 07/22/2009 8:00 AM CDT [employer] Supervisor: Kalpana Gutiérrez Status: Final Encounter: 22 Jul 2009 Type: Rooming Note Reason For Visit Follow Up Hemorrhoids Banding Do you have any other appointments, tests or procedures within the [facility] system for this same day? No. Pain [...] Musthave refilled by [facility] MD.; Rx Propoxyphene N-APAP 50-325 MG Tablet;TAKE 1 TABLET 4 TIMES DAILY NEEDED.; Rx Ibuprofen 600 MG Tablet;TAKE 1 TABLET 4 TIMES DAILY WITH MEALS NEEDED.; Rx MIRALAX POWD 3350NF;17 grams tid; Rx AAA-MED RECONCILE;per patient; RPT. Med list offered and patient declined. Signature Signed By: Kalpana Gutiérrez MA; 07/22/2009 8:39 AM DEFECTIVE CIGARETTE SLITTER. documented in this encounter Plan of Treatment Upcoming Encounters Date Type Specialty Care Team Description 09/10/2022 Office Visit Internal Medicine LogeaisMargot MD [address] [id number] (Wo rk) documented as of this encounter Visit Diagnoses Not on filedocumented in this encounter
--- OUTSIDE RECORDS SUMMARY | 2022-07-30 20:16 | XMS_ITS | Encounter Summary ---
:1945 Author Organization [facility] Address [address] [place] [address]. [place] [address] Care Team Providers Name Role Phone Unavailable Primary Care Provider Unavailable Encounter Details Date Type Department Care Team Description 10/03/2009 Office Visit-[facility] Women's Health Lisseth Rocha Phillips-Wangensteen MD [address] 1st Floor, Clinic [address] [place], [place] [phone] (Wo rk) Social History Tobacco Use Types Packs/Day Years Used Date Smoking Tobacco: Never Alcohol Use Standard Drinks/Week Comments Not Asked 0 (1 standard drink = 0.6 oz pure alcoho l) Sex Assigned at Date Recorded Female 12/20/2018 4:10 PM CDT documented as of this encounter Progress Notes Lisseth Vang - 10/03/2009 12:20 PM CST Parts Delivery Driver: Lisseth Vang Status: Final Encounter: 03 Oct 2009 Type: [facility] Visit Reason For Visit YIMI GARCIA is a 64 year old female who presents today to talk to Dr. Vang about her diet andsupplements. Doesn't think she could eliminate wheat in her diet. Wants to lose weight and will try the [employer] as that was helpful in the past. Will consider topical vaginal estrogen for vulva andvaginal atrophy if needed. She has vasomotor symptom (nightsweats) since stopping her hormones but wants to see what happens to her symptoms over the next couple of months. Also is wanting her uterus removed because of the fibroids found on US. She Talked with Dr. Lang about this and she did not think [...] Complex 1 Tablet;; RPT Astragalus CAPS;; RPT [place] 3 CAPS;TAKE DIRECTED.; RPT Estring 2 MG Ring;INSERT 1 APPLICATOR DIRECTED DIRECTED Change every 90 days. No further refills until seen in clinic.; Rx AAA-MED RECONCILE;Medications reviewed with the patient.; RPT. Med list offered and patient declined. Vital Signs Recorded by [email or web address] on 03 Oct 2009 12:08 PM BP:134/78, [...] and glucosamine 1000 mg. 3) Try the [place] diet for weight management - goal weight is 159 (BMI 25) 4) Soy in moderation 5) Exercise regularly - walking and yoga (community location) 6) Discussed at length dietary options and supplements 7) Encouraged establishing a routine for lunches at school. Signature Signed By: Lisseth Vang M.D.; 10/03/2009 2:47 PM REPORTS ANALYST. RTS ANALYST documented in this encounter Plan of Treatment Upcoming Encounters Date Type Specialty Care Team Description 09/10/2022 Office Visit Internal Medicine Logeais, MD Margot [address] [place] [phone] (Wo rk) documented as of this encounter Visit Diagnoses Not on filedocumented in this encounter
--- OUTSIDE RECORDS SUMMARY | 2022-07-30 20:16 | XMS_ITS | Encounter Summary ---
:1945 Author Organization [facility] Address [address] [place] [address]. [place] [address] Care Team Providers Name Role Phone Lisseth Vang MD Primary Care Provider Mehreen Johnston MD PhD Primary Care Provider [phone] Encounter Details Date Type Department Care Team Description 08/09/2009 Office Visit-[facility] Women's Health Yasmeen JeffClarice Alegria MD [address] 1st Floor, Clinic 1C [address] [place] [address] [place], [place] [phone] (Wo rk) [id number] [phone] Social History Tobacco Use Types Packs/Day Years Used Date Smoking Tobacco: Never Alcohol Use Standard Drinks/Week Comments Not Asked 0 (1 standard drink = 0.6 oz pure alcoho l) Sex Assigned at Date Recorded Female 12/20/2018 4:10 PM CDT documented as of this encounter Progress Notes Yasmeen Lang - 08/09/2009 3:30 PM CST Editor School Photograph: Yasmeen Lang Status: Final Encounter: 09 Aug 2009 Type: U Spec Visit Reason For Visit EMB. Was on hormones-concerned about this, was seem at [facility] had an order for an US would liketo have one done here, hx of polyps, had a bleeding on Jul.12 - . LMP: Menopause age 53 Contraception: NA. HPI 63 yo female w/ [employer] HEAD bleeding last month. She had appt at [facility] who suggested a EMB and u/s- neither [...] this clinic. Needs to have refilled by [facility] MD; Rx Prometrium 100 MG Capsule;TAKE 1 CAPSULE DAILY at bedtime. No further refills from this clinic. Musthave refilled by [facility] MD.; Rx Propoxyphene N-APAP 50-325 MG Tablet;TAKE 1 TABLET 4 TIMES DAILY NEEDED.; Rx Ibuprofen 600 MG Tablet;TAKE 1 TABLET 4 TIMES DAILY WITH MEALS NEEDED.; Rx MIRALAX POWD 3350NF;17 grams tid; Rx AAA-MED RECONCILE;per patient; RPT. Vital Signs Recorded by Invaluable on 09 Aug 2009 03:37 PM BP:130/80, [...] Name Procedure to be performed EMB Indication: [employer] DEPARTMENT HEAD bleeding Faculty: Celso Lang test: not done [...] prior to procedure. Assessment 63 yo w/ [employer]MENT HEAD bleeding. Plan 1. miso rx given 2. f/u sono for eval of endo stripe 3. EMB after miso as above Celso Lang MD. Signature Signed By: Debbie Carter MA; 08/09/2009 3:43 PM OYSTER WORKER. Signed By: Yasmeen Lang M.D.; 08/09/2009 5:09 PM OYSTER WORKER. ER WORKER documented in this encounter Plan of Treatment Upcoming Encounters Date Type Specialty Care Team Description 09/10/2022 Office Visit Internal Medicine Margot Branham MD [address] [place] [address] [phone] (Wo rk) documented as of this encounter Visit Diagnoses Not on filedocumented in this encounter Care Teams Felt Hanger Relationship Specialty Start Date End Date Lisseth Vang MD PCP - General 02/05/11 03/18/[address] [facility] [address] [place], [place] [address] Mehreen Johnston MD PhD PCP - General Family Practice 03/19/11 11/15/11 (work) documented as of this encounter
--- OUTSIDE RECORDS SUMMARY | 2022-07-30 20:16 | XMS_ITS | Encounter Summary ---
:1945 Author Organization [facility] Address [address] [place] [address]. [place] [address] Care Team Providers Name Role Phone Unavailable Primary Care Provider Unavailable Encounter Details Date Type Department Care Team Description 10/03/2009 Office Visit-[facility] Women's Health Mehreen Green [place]-Wangensteen MD PhD Building [address] [place] [address] 1st Floor, Clinic [address] [place] [address] (Wo rk) [phone] Social History Tobacco Use Types Packs/Day Years Used Date Smoking Tobacco: Never Alcohol Use Standard Drinks/Week Comments Not Asked 0 (1 standard drink = 0.6 oz pure alcoho l) Sex Assigned at Date Recorded Female 12/20/2018 4:10 PM CDT documented as of this encounter Progress Notes Mehreen Johnston - 10/03/2009 10:20 AM CST Risk Management Analyst: Mehreen Johnston Status: Final Encounter: 03 Oct 2009 Type: [facility] Visit Reason For Visit YIMI GARCIA is here for annual visit Do you have any other appointments, tests or procedures within the [facility] system for this same day? Yes. Pain [...] Complex 1 Tablet;; RPT [place] CAPS;; RPT [place] 3 CAPS;TAKE DIRECTED.; RPT AAA-MED RECONCILE;Medications reviewed [...] By: Mehreen Johnston M.D.,PhD; 10/03/2009 12:25 PM PSYCHOLOGICAL OPERATIONS SPECIALIST. HOLOGICAL OPERATIONS SPECIALIST Mehreen Johnston - 10/03/2009 10:20 AM CST Risk Management Analyst: Mehreen Johnston Status: Final - Signature Encounter: 03 Oct 2009 Type: [facility] Visit Family [facility] Department of Family Medicine [place] Mail Code [address] [place] [address] Office: [phone] Women???[facility] First Floor, Clinic [address] [place] [address] Phone:\[phone] Fax:\[phone] RE: Yimi Garcia : 1945 MUSA: 10/03/2009 [...] on hormone patches and then stopped them [id number] to 2005. Then in 2005 she restarted [...] DEXA scan about two years ago at [facility] which is not in the record. She does take calcium 1200 mg in divided doses daily. She takes vitamin D3 1000 international units a day. She has been exercising, walking, more sporadic over the last year. She has not had a recent vitamin D level. She recently was evaluated at the [facility] for cardiac risk. She had a [...] the H1N1. She had theshingles shot at [facility] September 23, 2009. MEDICATIONS: She is [...] son. 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 [...] night. Has recently been evaluated at the [facility] for cardiac risk. Had a recent cholesterol [...] The patient was recently evaluated at the [facility] so we will not order another lipids. [...] her a prescription order for this at [email or web address]. Menopausal. She is having significant symptoms. We [...] these current tests. Mehreen Johnston MD, PhD composite mechanic [facility] [phone] or [phone] SA:11 Electronically signed by:Mehreen Johnston M.D.,PhD Oct 08 2009 11:39PM PSYCHOLOGICAL OPERATIONS SPECIALIST HOLOGICAL OPERATIONS SPECIALIST documented in this encounter Plan of Treatment Upcoming Encounters Date Type Specialty Care Team Description 09/10/2022 Office Visit Internal Medicine Margot Branham MD [address] [place] [phone] (Wo rk) documented as of this encounter Visit Diagnoses Not on filedocumented in this encounter
--- OUTSIDE RECORDS SUMMARY | 2022-07-30 20:16 | XMS_ITS | Encounter Summary ---
:1945 Author Organization [facility] Address [address] [place] [address]. [place] [address] Care Team Providers Name Role Phone Unavailable Primary Care Provider Unavailable Encounter Details Date Type Department Care Team Description 08/26/2009 Office Visit-P INTERFACE P DEPT Gema Gallo MD [place] [address] (Wo rk) Social History Tobacco Use Types Packs/Day Years Used Date Smoking Tobacco: Never Alcohol Use Standard Drinks/Week Comments Not Asked 0 (1 standard drink = 0.6 oz pure alcoho l) Sex Assigned at Date Recorded Female 12/20/2018 4:10 PM CDT documented as of this encounter Progress Notes Eri Gallo S - 08/26/2009 4:30 PM CST Patching Machine Operator: Eri Gallo Status: Unsigned Encounter: 26 Aug 2009 Type: [facility] ST[employer]ROOM ASSOCIATE Visit This patient is a 64 yo P1001 who is here with questions about how to manage night sweats and insomnia since she recently stopped her vivelle/prometrium. She stopped it because she had an episode of post menopausal bleeding from 07/12 - 07/25. She had had polyps many years ago. She was seen at the [facility] who recommended an ultrasound and an endometrial [...] has also had an evaluation by the [facility]. She requests something mild to help her sleep. She cannot take melatonin because it gives her nightmares. BP:140/78, LUE, Sitting, HR: 64 b/min, Height: 67.0 in, Weight: 172.4 lb, BMI: 27 kg/m2, Pain Scale: 0. IMP: Menopausal symptoms Borderline blood pressure Essential tremor Possible increased cardiac risk Plan: Try black navdeeposh Go back to see Anh Costa and her primary substance abuse counselor, Dr. Vang, to address the above issues. 100 % of this 30 minute visit was spent in coordinating her care. B SERVICES AIDE Eri Gallo - 08/26/2009 4:30 PM CST Patching Machine Operator: Eri Gallo Status: Final Encounter: 26 Aug 2009 Type: [facility] Visit Reason For Visit YIMI GARCIA [...] other appointments, tests or procedures within the [facility] system for this same day? No. Pain [...] this clinic. Needs to have refilled by [facility] MD; Rx Prometrium 100 MG Capsule;TAKE 1 CAPSULE DAILY at bedtime. No further refills from this clinic. Musthave refilled by [facility] .; Rx Ibuprofen 600 MG Tablet;TAKE 1 [...] and patient declined. Vital Signs Recorded by [email or web address] on 26 Aug 2009 05:13 PM BP:140/78, LUE, Sitting, HR: 64 b/min, Height: 67.0 in, Weight: 172.4 lb, BMI: 27 kg/m2, Pain Scale: 0. Performance Status GRADE : KARNOFSKY SCALE : PERFORMANCE 0 : 90 & 100 : Fully Active Initial: GENTRY RICKETTS 08/26/2009. Signature Signed By: Eri Gallo M.D.; 08/26/2009 5:14 PM REHAB SERVICES AIDE. B SERVICES AIDE documented in this encounter Plan of Treatment Upcoming Encounters Date Type Specialty Care Team Description 09/10/2022 Office Visit Internal Medicine Margot Branham MD [address] [place] [phone] (Wo rk) documented as of this encounter Visit Diagnoses Not on filedocumented in this encounter
--- OUTSIDE RECORDS SUMMARY | 2022-07-30 20:16 | XMS_ITS | Encounter Summary ---
:1945 Author Organization [facility] Address [address] [place] [address] Care Team Providers Name Role Phone Unavailable Primary Care Provider Unavailable Encounter Details Date Type Department Care Team Description 11/18/2009 Historic Results INTERFACED REPORT Anh Costa AP RN TELE GROUT SEWER LINE REPAIRER Social History Tobacco Use Types Packs/Day Years [...] Visit Internal Medicine LogMargot sadler MD [address] [place] [phone] (Wo rk) documented as of this encounter Procedures Procedure Name Priority Date/Time Associated Comments Diagnosis N TERMINAL PRO BNP Routine 11/18/2009 10:00 Resul ts for this OUTPATIENT AM [employer] procedure are i n the results section. ALBUMIN RANDOM URINE Routine 11/18/2009 10:00 Res ults for this QUANTITATIVE AM [employer] procedure are i n the results section. LIPID REFLEX TO Routine 11/18/2009 10:00 Results for this DIRECT LDL PANEL AM [employer] procedure a re in the results section. CRP CARDIAC RISK Routine 11/18/2009 10:00 Results for this AM [employer] procedure are i n the results section. AST Routine 11/18/2009 10:00 Results for this AM [employer] procedure are i n the results section. ALT Routine 11/18/2009 10:00 Results for this AM [employer] procedure are i n the results section. documented in this encounter Results ALT (11/18/2009 10:00 AM [employer]) P athologist Signature ALT 22 0 - 50 U/L [facility]IS[facility] Specimen Anatomical Collection Method Collection Time Receive d Time (Source) Location / / Volume Laterality 11/18/2009 10:00 11/18/2009 AM [employer] 10:24 AM [employer] Anh Costa APRN TELE GROUT SEWER LINE REPAIRER LAB - BLOOD ORDERABLES Performing Organization Address City/[facility]/ZIP Code Phon e Number MIS[facility] AST (11/18/2009 10:00 AM [employer]) P athologist Signature AST 31 0 - 45 U/L [facility] Specimen Anatomical Collection Method Collection Time Receive d Time (Source) Location / / Volume Laterality 11/18/2009 10:00 11/18/2009 AM [employer] 10:24 AM [employer] Anh Moranaparna Costa APRN TELE GROUT SEWER LINE REPAIRER LAB - BLOOD ORDERABLES Performing Organization Address City/[facility] Code Phon e Number MIS[facility] Lipid panel reflex to direct LDL (11/18/2009 10:00 AM [employer]) [facility] gist Method Time Signature Cholesterol Duplicate 0 [...] VLDL-Cholesterol Duplicate request 0 - 30 mg/dL AL SYS Comment: PER MD COSTA 722 CORRECTED ON 11/18 AT 1627: PREVIOUSLY R EPORTED 34 Cholesterol/HDL Ratio Duplicate request 0.0 - 5.0 MISYS Comment: PER MD COSTA 722 CORRECTED ON 11/18 AT 1627: PREVIOUSLY R EPORTED 3.6 Specimen Anatomical Collection Method Collection Time Receive d Time (Source) Location / / Volume Laterality 11/18/2009 10:00 11/18/2009 AM [employer] 10:24 AM [employer] Anh Costa APRN, CNP LAB - BLOOD ORDERABLES Performing Organization Address City/State/ZIP Code Phon e Number [facility] CRP cardiac risk (11/18/2009 10:00 AM [employer]) athologist Signature CRP Cardiac 5.9 mg/L [facility] Risk Comment: Reference Values: Low Risk: ? <1.0 mg/L Average Risk: ? 1.0-3.0 mg/L High Risk: ?>3.0 mg/L Acute Inflammation: >8.0 mg/L Specimen Anatomical Collection Method Collection Time Receive d Time (Source) Location / / Volume Laterality 11/18/2009 10:00 11/18/2009 AM [employer] 10:24 AM [employer] Anh Costa APRN, CNP LAB - BLOOD ORDERABLES Performing Organization Address City/[facility]/ZIP Code Phon e Number MIS[place] N terminal pro BNP outpatient (11/18/2009 10:00 AM [employer]) athologist Signature N-Terminal Pro 72 0 - 125 [facility] Bnp pg/mL Specimen Anatomical Collection Method Collection Time Receive d Time (Source) Location / / Volume Laterality 11/18/2009 10:00 11/18/2009 AM [employer] 10:24 AM [employer] Anh Costa APRN, CNP LAB - BLOOD ORDERABLES Performing Organization Address City/State/ZIP Code Phon e Number [place] Microalbumin quantitative random urine (11/18/2009 10:00 AM [employer]) Patholo gist Method Time Signature Creatinine 180 mg/dL MIS[facility] Urine Albumin Urine <2 mg/L MIS[facility] mg/L Albumin Urine Unable to 0 - 20 MISYS mg/g Cr calculate mg/g Cr Specimen Anatomical Collection Method Collection Time Receive d Time (Source) Location / / Volume Laterality 11/18/2009 10:00 11/18/2009 AM [employer] 10:24 AM [employer] Anh Costa APRN, CNP LAB - URINE ORDERABLES Performing Organization Address City/State/ZIP Code Phon e Number MIS[facility] documented in this encounter Visit Diagnoses Not on filedocumented in this encounter
--- OUTSIDE RECORDS SUMMARY | 2022-07-30 20:16 | XMS_ITS | Encounter Summary ---
:1945 Author Organization [facility] Address [address] [place] [address]. [place] [address] Care Team Providers Name Role Phone Unavailable Primary Care Provider Unavailable Encounter Details Date Type Department Care Team Description 08/28/2009 Office Visit-[facility] INTERFACE [facility] DEPT Provider, [facility] Nurs e Social History Tobacco Use Types Packs/Day Years Used Date Smoking Tobacco: Never Alcohol Use Standard Drinks/Week Comments Not Asked 0 (1 standard drink = 0.6 oz pure alcoho l) Sex Assigned at Date Recorded Female 12/20/2018 4:10 PM CDT documented as of this encounter Progress Notes Provider, [facility] Nurse - 08/28/2009 4:15 PM CST Obstetrical Tech: Iris Sharda Status: Final Encounter: 28 Aug [...] back with any new or worsening symptoms/concerns. [facility] Caller verbalized understanding of plan Caller agrees with advice given Caller's preference is: reassurance she has no cancer. Signature Signed By: Sharda Simmons R.N.; 08/28/2009 4:17 PM WASHROOM OPERATOR. documented in this encounter Plan of Treatment Upcoming Encounters Date Type Specialty Care Team Description 09/10/2022 Office Visit Internal Medicine Margot Branham MD [address] [address] (Wo rk) documented as of this encounter Visit Diagnoses Not on filedocumented in this encounter
--- OUTSIDE RECORDS SUMMARY | 2022-07-30 20:16 | XMS_ITS | Encounter Summary ---
:1945 Author Organization [facility] Address [address] [place] [address]. [place] [address] Care Team Providers Name Role Phone Unavailable Primary Care Provider Unavailable Encounter Details Date Type Department Care Team Description 11/18/2009 Office Visit-[facility] Anh Costa, Physicians Heart CREW ATTENDANT PAUL Mota [facility] 4th Floor, Clinic [address] [place] [phone] Social History Tobacco Use Types Packs/Day Years Used Date Smoking Tobacco: Never Alcohol Use Standard Drinks/Week Comments Not Asked 0 (1 standard drink = 0.6 oz pure alcoho l) Sex Assigned at Date Recorded Female 12/20/2018 4:10 PM CDT documented as of this encounter Progress Notes Anh Costa - 11/18/2009 10:00 AM CST Pusher Operator: Anh Costa Status: Final Encounter: 18 Nov [...] hormone therapy- She was seen [facility]AM at [facility] and started on prometrium and has been [...] TABLET DAILY DIRECTED 800mg per day; RPT Capulin 3 1000 MG Capsule;TAKE 2 CAPSULE TWICE DAILY; RPT Lonqrnaecgd-Lzcenkkjpcq-BPN 500-250-250 MG Capsule;TAKE 1 CAPSULE EVERY 12 [...] flu. 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 She has one son age 31. Never smoked. Vital Signs Recorded by [facility] on 18 Nov 2009 10:30 AM BP:100/50, LUE, Sitting, Height: 66.75 in, Weight: 170.2 lb, BMI: 26.9 kg/m2. Recorded by [facility] on 18 Nov 2009 10:32 AM BP:108/73. [...] CRP Cardiac Risk: 5.9 mg/L. Procedures CV full time staff interpreter today significantly improvment in arterial elasticity with [...] triglycerides. Signed by Anh Costa, MSN, RN, REGULATORY AFFAIRS SPECIALIST Nurse Practitioner [facility] [place] Mail Code #508 [address] [place] [address] phone: [phone] fax: [phone]. Signature Signed By: Anh Costa N.P.; 11/22/2009 8:35 AM MEDICAL LAB SCIENTIST. CAL LAB SCIENTIST documented in this encounter Plan of Treatment Upcoming Encounters Date Type Specialty Care Team Description 09/10/2022 Office Visit Internal Medicine Margot Branham MD [address] [place] [phone] (Wo rk) documented as of this encounter Visit Diagnoses Not on filedocumented in this encounter
--- OUTSIDE RECORDS SUMMARY | 2022-07-30 20:16 | XMS_ITS | Encounter Summary ---
:1945 Author Organization [facility] Address [address] [place] [address]. [place] [address] Care Team Providers Name Role Phone Unavailable Primary Care Provider Unavailable Reason for Visit Reason Comments Urinary Problem urinary pain for 6 days was treated for yeast last wednesday Urgent Care Encounter Details Date Type Department Care Team Description 06/21/[address] [facility] Kishore Weber, UTI ([facility] Gary Akua Short, Inf ection) ([facility] [place]) [address] [place] [phone] Social History Tobacco Use Types Packs/Day Years [...] - 06/21/2009 6:08 PM CDT SUBJECTIVE: Ramona Sheihk is a 63 year old female who [...] Nursing Notes 06/21/2009 6:00 PM CDT >> GRACE DIAZ Fri Jun 21, 2009 6:02 PM [...] Internal Medicine Margot Branham MD [address] [phone] (Wo rk) documented as of this encounter [...] Results URINE CULTURE (06/21/2009 6:11 PM CDT) [facility] gist Method Time Signature Specimen Midstream Urine RAMILA Description [place] Culture Micro >100,000 colonies/mL Klebsevie lla pneumoniae CORRECTED ON 06/24 AT 1119: PREVIOUSLY [place] REPORTED >100,000 colonies/mL Escherichia coli [facility] Report status FINAL [place] 06/24/2009 [facility] Specimen Anatomical Collection Method Collection Time [...] Akua Weber MD LABORATORY Performing Organization Address City/[facility]/ZIP Code Phon e Number M [facility] [address] [place] [address] [facility] LAB (ABNORMAL) MICRO EXAM-URINE (06/21/2009 6:11 PM CDT) athologist Signature WBC Urine 5-10 (A) 0 - 2 /HPF [facility] RBC Urine O - 2 0 - 2 /HPF [facility] Squamous EPI Few FEW /LPF [facility] Bacteria Urine Few (A) NEG /HPF [facility] Amorphous Few (A) NEG /HPF [place] [facility]ates [place] Specimen Anatomical Collection Method Collection Time Receive d Time (Source) Location / / Volume Laterality 06/21/2009 6:11 PM 9 6:16 CDT PM CDT Akua Weber MD LABORATORY Performing Organization Address City/State/ZIP Code Phon e Number [place] [address] [place] [address] [place] [address] [facility] documented in this encounter Visit Diagnoses Diagnosis UTI (urinary tract infection) - Primary Urinary tract infection, site not specif ied documented in this encounter
--- OUTSIDE RECORDS SUMMARY | 2022-07-30 20:16 | XMS_ITS | Encounter Summary ---
:1945 Author Organization [facility] Address [address] [place] [address]. [place] [address] Care Team Providers Name Role Phone Unavailable Primary Care Provider Unavailable Reason for Visit Reason Comments Urgent Care UTI Symptoms of UTI since this m darrius. Encounter Details Date Type Department Care Team Description 06/16/2009 Office Visit [facility] Kishore Weber, Vaginitis, Yeast (Primary Dx); [facility] [place] Akua Short, Dys uria; Mercedes OLIVEROS Vaginitis; [address] [facility] [address] [place] [address] Need for Prophylactic Vaccination [place] [address] [phone] Social History Tobacco Use Types Packs/Day Years [...] BMI.. BP completed using cuff size: regular Smiller,pugger helper documented in this encounter Plan of Treatment Upcoming Encounters Date Type Specialty Care Team Description 09/10/2022 Office Visit Internal Medicine LogeaisMargot MD [address] [place] [address] [phone] (Wo rk) documented as of this encounter [...] A WET PREP (06/16/2009 5:03 PM CDT) [facility] gist Method Time Signature Specimen [facility] Wet Prep Yeast seen [place] No clue cells seen [place] No Trichomonas seen [place] Report status FINAL [place] 06/16/2009 [place] Specimen Anatomical Collection Method Collection Time Receive d Time (Source) Location / / Volume Laterality 06/16/2009 5:03 PM 9 5:08 CDT PM CDT Akua Weber MD LABORATORY Performing Organization Address City/[facility]/ZIP Code Phon e Number [place] [address] [place] [address] [facility] URINE CULTURE (06/16/2009 4:34 PM CDT) [facility] Method Time Signature Specimen Midstream [facility] Urine [place] Culture Micro <10,000 [place] colonies/mL [facility] LAB species present, probable perineal contamination . Report status FINAL [place] 06/18/2009 [facility] LAB Specimen Anatomical Collection Method Collection Time Receive d Time (Source) Location / / Volume Laterality 06/16/2009 4:34 PM 9 4:50 CDT PM CDT Akua Weber MD LABORATORY Performing Organization Address City/[facility]/ZIP Code Phon e Number M [facility] [address] [place] [address] [facility] LAB (ABNORMAL) MICRO EXAM-URINE (06/16/2009 4:34 PM CDT) P athologist Signature WBC Urine O - 2 0 - 2 /HPF [facility] RBC Urine O - 2 0 - 2 /HPF [facility] Squamous EPI Few FEW /LPF [facility] Bacteria Urine Few (A) NEG /HPF [facility] Specimen Anatomical Collection Method Collection Time Receive d Time (Source) Location / / Volume Laterality 06/16/2009 4:34 PM 9 4:39 CDT PM CDT Akua Weber MD LABORATORY Performing Organization Address City/State/ZIP Code Phon e Number [place] [address] [place] [address] [facility] documented in this encounter Visit Diagnoses Diagnosis Vaginitis, yeast - Primary Candidiasis of vulva and vagina Dysuria Vaginitis Vaginitis and vulvovaginitis, unspecifie d Need for prophylactic vaccination and in oculation against influenza documented in this encounter
--- OUTSIDE RECORDS SUMMARY | 2022-07-30 20:16 | XMS_ITS | Encounter Summary ---
:1945 Author Organization [place] Address [address] [place] [address]. [place] [address] Care Team Providers Name Role Phone Unavailable [...] Unknown, Provider - 05/31/2009 3:00 PM CDT Sheet Metal Duct Installer Helper: Ary Esqueda Status: Final Encounter: 31 May 2009 Type: Rooming Note Reason For Visit YIMI GARCIA is a 63 year old female presenting today with sinus nasl tissue problem. Do you have any other appointments of any type today within the [facility] system? (this includes clinic appt's, [...] this clinic. Needs to have refilled by [facility] MD; Rx Prometrium 100 MG Capsule;TAKE 1 CAPSULE DAILY at bedtime. No further refills from this clinic. Musthave refilled by [facility] .; Rx AAA-MED RECONCILE;per patient; RPT. Signature Signed By: Ary Esqueda MA; 05/31/2009 3:22 PM PARAMEDIC SUPERVISOR. documented in this encounter Plan of Treatment Upcoming Encounters Date Type Specialty Care Team Description 09/10/2022 Office Visit Internal Medicine Margot Branham MD [address] [place] [phone] (Wo rk) documented as of this encounter Visit Diagnoses Not on filedocumented in this encounter
--- OUTSIDE RECORDS SUMMARY | 2022-07-30 20:16 | XMS_ITS | Encounter Summary ---
:1945 Author Organization [facility] Address [address] [place] [address]. [place] [address] Care Team Providers Name Role Phone Unavailable Primary Care Provider Unavailable Encounter Details Date Type Department Care Team Description 10/02/2009 Office Visit-[facility] INTERFACE [facility] DEPT Provider, [facility] Nurs e Social History Tobacco Use Types Packs/Day Years Used Date Smoking Tobacco: Never Alcohol Use Standard Drinks/Week Comments Not Asked 0 (1 standard drink = 0.6 oz pure alcoho l) Sex Assigned at Date Recorded Female 12/20/2018 4:10 PM CDT documented as of this encounter Progress Notes Provider, [facility] Nurse - 10/02/2009 10:20 AM CST Door Glass Installer: Michelle Margot Status: Final Encounter: 02 Oct [...] By: Margot Martinez R.N.,BSN; 10/02/2009 12:03 PM CLIENT DEVELOPMENT MANAGER; Author. documented in this encounter Plan of Treatment Upcoming Encounters Date Type Specialty Care Team Description 09/10/2022 Office Visit Internal Medicine Margot Branham MD [address] [place] [address] [phone] (Wo rk) documented as of this encounter Visit Diagnoses Not on filedocumented in this encounter
--- OUTSIDE RECORDS SUMMARY | 2022-07-30 20:16 | XMS_ITS | Encounter Summary ---
:1945 Author Organization [place] Address [address] [place] [address]. [place] [address] Care Team Providers Name Role Phone Unavailable Primary Care Provider Unavailable Encounter Details Date Type Department Care Team Description 06/18/2009 Office Visit-[facility] INTERFACE [facility] DEPT Provider, [facility] Nurs e Social History Tobacco Use Types Packs/Day Years Used Date Smoking Tobacco: Never Alcohol Use Standard Drinks/Week Comments Not Asked 0 (1 standard drink = 0.6 oz pure alcoho l) Sex Assigned at Date Recorded Female 12/20/2018 4:10 PM CDT documented as of this encounter Progress Notes Provider, [facility] Nurse - 06/18/2009 7:45 AM CDT Industrial Sales Manager: Nimisha Dennis Status: Final Encounter: 18 Jun 2009 Type: Rooming Note Reason For Visit YIMI GARCIA is a 63 year old female presenting today with coblator turbinate reduction. Do you have any other appointments of any type today within the [facility] system? (this includes clinic appt's, Imaging, [...] this clinic. Needs to have refilled by [facility] MD; Rx Prometrium 100 MG Capsule;TAKE 1 CAPSULE DAILY at bedtime. No further refills from this clinic. Musthave refilled by [facility] .; Rx AAA-MED RECONCILE;per patient; RPT. Med list offered and patient declined. Signature Signed By: Nimisha QUINN; 06/18/2009 7:57 AM CABANA ATTENDANT. documented in this encounter Plan of Treatment Upcoming Encounters Date Type Specialty Care Team Description 09/10/2022 Office Visit Internal Medicine Margot Branham MD [address] [place] [address] [phone] (Wo rk) documented as of this encounter Visit Diagnoses Not on filedocumented in this encounter
--- OUTSIDE RECORDS SUMMARY | 2022-07-30 20:16 | XMS_ITS | Encounter Summary ---
:1945 Author Organization [place] Address [address] [place] [address] [place] [address] Care Team Providers Name Role Phone Unavailable Primary Care Provider Unavailable Encounter Details Date Type Department Care Team Description 06/18/2009 Office Visit-[facility] Ear, Nose and Throat Ismael Brewer MD Clinic [address] [facility] 8th Floor, Clinic [address]A [address] [place] [address] [address] Social History Tobacco Use Types Packs/Day Years Used Date Smoking Tobacco: Never Alcohol Use Standard Drinks/Week Comments Not Asked 0 (1 standard drink = 0.6 oz pure alcoho l) Sex Assigned at Date Recorded Female 12/20/2018 4:10 PM CDT documented as of this encounter Progress Notes Honey Brewer C - 06/18/2009 7:45 AM CDT Pipeliner: Honey Brewer Status: Final - Signature Encounter: 18 Jun 2009 Type: ENT Visit Department of Otolaryngology--Head and Neck Surgery [place] Mail Code [address] [place] [address] Office: [address] RE: Ramona Sheikh : 1945 MUSA: [...] by:Honey Brewer MD Jun 21 2009 9:17AM LOAN DOCUMENTATION SPECIALIST Reviewed by:Lisseth Estes M.D. Jun 26 2009 2:00PM LOAN DOCUMENTATION SPECIALIST documented in this encounter Plan of Treatment Upcoming Encounters Date Type Specialty Care Team Description 09/10/2022 Office Visit Internal Medicine Margot Branham MD [address] [place] [phone] (Wo rk) documented as of this encounter Visit Diagnoses Not on filedocumented in this encounter
--- OUTSIDE RECORDS SUMMARY | 2022-07-30 20:16 | XMS_ITS | Encounter Summary ---
:1945 Author Organization [place] Address [address] [place] [address] Care Team Providers Name Role Phone Unavailable Primary Care Provider Unavailable Encounter Details Date Type Department Care Team Description 10/22/2009 Office Visit-[facility] Ear, Nose and Throat Ismael Brewer MD Clinic [address] [facility] 8th Floor, Clinic 8A [address] [place] [address] [address] Social History Tobacco Use Types Packs/Day Years Used Date Smoking Tobacco: Never Alcohol Use Standard Drinks/Week Comments Not Asked 0 (1 standard drink = 0.6 oz pure alcoho l) Sex Assigned at Date Recorded Female 12/20/2018 4:10 PM CDT documented as of this encounter Progress Notes Honey Brewer C - 10/22/2009 8:00 AM CST Lead Applier: Honey Brewer Status: Final - Signature Encounter: 22 Oct 2009 Type: ENT Visit Department of Otolaryngology--Head and Neck Surgery [place] Mail Code [address] [place] [address] Office: [address] RE: Ramona Sheikh : 1945 MUSA: [...] by:Honey Brewer MD Oct 22 2009 10:49AM SEWER LINE REPAIRER R LINE REPAIRER documented in this encounter Plan of Treatment Upcoming Encounters Date Type Specialty Care Team Description 09/10/2022 Office Visit Internal Medicine LogeaMargot man MD [address] [phone] (Wo rk) documented as of this encounter Visit Diagnoses Not on filedocumented in this encounter
--- OUTSIDE RECORDS SUMMARY | 2022-07-30 20:16 | XMS_ITS | Encounter Summary ---
:1945 Author Organization [facility] Address [address] [place] [address]. [place] [address] Care Team Providers Name Role Phone Lisseth Vang MD Primary Care Provider Mehreen Johnston MD PhD Primary Care Provider [phone] Encounter Details Date Type Department Care Team Description 09/02/2009 Office Visit-[facility] Women's Health Yasmeen JeffClarice Alegria MD [address] 1st Floor, Clinic 1C 300 [address] [place] [address] [place], [place] [phone] (Wo rk) [address] [phone] Social History Tobacco Use Types Packs/Day Years Used Date Smoking Tobacco: Never Alcohol Use Standard Drinks/Week Comments Not Asked 0 (1 standard drink = 0.6 oz pure alcoho l) Sex Assigned at Date Recorded Female 12/20/2018 4:10 PM CDT documented as of this encounter Progress Notes Yasmeen Lang - 09/02/2009 4:00 PM CST Sports Book Writer: Yasmeen Lang Status: Final Encounter: 02 Sep 2009 Type: U Spec Visit Reason For Visit Follow up EMB Menopause Age: 64 Contraception: None. HPI 64 yo RIVETER HAND female here to f/u EMB after endometrial cells on pap at [facility]. Pap NILM here and EMB neg for [...] this clinic. Needs to have refilled by [facility] ; Rx Prometrium 100 MG Capsule;TAKE 1 CAPSULE DAILY at bedtime. No further refills from this clinic. Musthave refilled by [facility] MD.; Rx Ibuprofen 600 MG Tablet;TAKE 1 TABLET 4 TIMES DAILY WITH MEALS NEEDED.; Rx MIRALAX POWD 3350NF;17 grams tid; Rx Magnesium 300 MG Capsule;; RPT Misoprostol 200 MCG Tablet;TAKE [address] tablets between cheek and gum30 minutes prior to procedure in clinic, allow to dissolve.; Rx B Complex 1 Tablet;; RPT Astragalus CAPS;; RPT [place] 3 CAPS;TAKE DIRECTED.; RPT AAA-MED RECONCILE;Medications reviewed with the patient.; RPT. Vital Signs Recorded by Thania Rosenbaum on 02 Sep 2009 03:56 PM BP:148/85, RUE, Sitting, HR: 69 b/min, R Radial, Regular, Weight: 169.8 lb, Pain Scale: 0. Assessment RIVETER HAND female w/ endometrial cells on pap- NEG [...] By: Thania Rosenbaum LPN; 09/02/2009 3:58 PM MACHINE SETTER AUTOMATIC. Signed By: Yasmeen Lang M.D.; 09/02/2009 4:37 PM MACHINE SETTER AUTOMATIC. INE SETTER AUTOMATIC documented in this encounter Plan of Treatment Upcoming Encounters Date Type Specialty Care Team Description 09/10/2022 Office Visit Internal Medicine Margot Branham MD [address] [phone] (Wo rk) documented as of this encounter Visit Diagnoses Not on filedocumented in this encounter Care Teams Bundle Cutter Relationship Specialty Start Date End Date Lisseth Vang MD PCP - General 02/05/11 03/18/[address] [place], [place] [address] Mehreen Johnston MD PhD PCP - General Family Practice 03/19/11 11/15/11 documented as of this encounter
--- OUTSIDE RECORDS SUMMARY | 2022-07-30 20:17 | XMS_ITS | Encounter Summary ---
:1945 Author Organization [place] Address [address] [place] [address]. [place] [address] Care Team Providers Name Role Phone Unavailable Primary Care Provider Unavailable Reason for Visit Reason Comments Flu Shot Encounter Details Date Type Department Care Team Description 08/17/2008 Allied Health/Nurse [facility] Clinic Flu Shot Visit [address] [address] Social History Tobacco Use [...] to contact lens solution/thimerosol? No History of Guillain-Cowen syndrome? No Currently have moderate or severe illness? No 3. The vaccine has been administered and the patient was instructed to wait 15 minutes before leaving the building in the event of an allergic reaction: YES Vaccination given by Ulises Crowe MA SPECIALIST documented in this encounter Plan of Treatment Upcoming Encounters Date Type Specialty Care Team Description 09/10/2022 Office Visit Internal Medicine [place], MD Margot [address] [phone] (Wo rk) documented as of this encounter Visit Diagnoses Diagnosis Need for prophylactic vaccination and in oculation against influenza documented in this encounter
--- OUTSIDE RECORDS SUMMARY | 2022-07-30 20:17 | XMS_ITS | Encounter Summary ---
:1945 Author Organization [facility] Address [address] [place] [address] Care Team Providers Name Role Phone Unavailable Primary Care Provider Unavailable Encounter Details Date Type Department Care Team Description 06/05/2008 Historic Results Physicians, Primary [place], Mehreen Butler, [facility] MD PhD 3rd Floor, Clinic 3A [address] [facility] [address] Social History Tobacco Use Types Packs/Day Years Used Date Smoking Tobacco: Never Assessed Sex Assigned at Date Recorded Female 12/20/2018 4:10 PM CDT documented as of this encounter Plan of Treatment Upcoming Encounters Date Type Specialty Care Team Description 09/10/2022 Office Visit Internal Medicine LogeaMargot man MD [address] [address] (Wo rk) documented as of this encounter Procedures Procedure Name Priority Date/Time Associated Comments Diagnosis ROUTINE UA WITH Routine 06/05/2008 4:44 PM Result s for this MICROSCOPIC CDT procedure are i n the results section. URINE CULTURE Routine 06/05/2008 4:44 PM Results for this CDT procedure are i n the results section. documented in this encounter Results Routine UA with microscopic (06/05/2008 4:44 PM CDT) Component Value Ref Test Analysis Performed At [facility] Range Method Time Signature Source Unspecified [place] Urine Color Urine Brown MIS[place] Appearance Urine Clear MIS[place] Glucose Urine Negative NEG MISYS mg/dL Bilirubin Urine Negative NEG MIS[place] Ketones Urine Negative NEG MISYS mg/dL Specific [place] 1.007 1.003 - MISYS Urine 1.035 Blood Urine Negative NEG MISYS pH Urine 5.0 5.0 - MISYS 7.0 pH Protein Albumin Negative NEG MISYS Urine mg/dL Urobilinogen Normal 0.0 - MISYS mg/dL 2.0 mg/dL Nitrite Urine Negative NEG MIS[facility] Leukocyte Negative NEG MISYS Esterase Urine WBC Urine 0 0 - 2 MISYS /HPF RBC Urine <1 0 - 2 MISYS /HPF Squamous <1 0 - 1 MISYS Epithelial /HPF /HPF Urine Specimen Anatomical Collection Method Collection Time Receive d Time (Source) Location / / Volume Laterality 06/05/2008 4:44 PM 8 4:46 CDT PM CDT Mehreen Johnston MD PhD LAB - URINE ORDERABLES Performing Organization Address City/State/ZIP Code Phon e Number [place] Urine culture (06/05/2008 4:44 PM CDT) [facility] Method Time Signature Specimen Unspecified [place] Description Urine Culture Micro No growth [place] Micro Report FINAL [place] Status 06/06/2008 Specimen Anatomical Collection Method Collection Time Receive d Time (Source) Location / / Volume Laterality 06/05/2008 4:44 PM 8 4:46 CDT PM CDT Mehreen Johnston MD PhD LAB - MICRO GENERAL ORDERABL ES Performing Organization Address City/State/ZIP Code Phon e Number [place] documented in this encounter Visit Diagnoses Not on filedocumented in this encounter
--- OUTSIDE RECORDS SUMMARY | 2022-07-30 20:17 | XMS_ITS | Encounter Summary ---
:1945 Author Organization [place] Address [address] [place] [address] Care Team Providers Name Role Phone Unavailable Primary Care Provider Unavailable Encounter Details Date Type Department Care Team Description 01/14/2009 Office Visit-[facility] Colon and Rectal Surgery Fauzia Hamilton MD [place] [address] [facility] Building 450 1st Floor, Clinic [address] [place] [address] Social History Tobacco Use Types Packs/Day Years Used Date Smoking Tobacco: Never Alcohol Use Standard Drinks/Week Comments Not Asked 0 (1 standard drink = 0.6 oz pure alcoho l) Sex Assigned at Date Recorded Female 12/20/2018 4:10 PM CDT documented as of this encounter Progress Notes Theresa Hamilton - 01/14/2009 8:00 AM CDT Human Factors Ergonomist: Theresa Hamilton Status: Final - Signature Encounter: 14 Jan 2009 Type: Colon Rectal Visit Colon & Rectal Surgery Clinic Department of Surgery [place] Mail Code 450 [address] [facility] [place] [address] [facility] First Floor, Clinic 1E [address] [place] [address] RE: Ramona Sheikh : 1945 MUSA: 01/14/2009 OUTPATIENT VISIT NOTE REFERRING PHYSICIAN: Dr. Lisseth Estes, of [facility] Physician's Family Medicine. REASON FOR CONSULTATION: Perianal [...] chest pain. No heart attack. No hypertension. SNOW MAKER history: Reports no previous issues. : No [...] spent counseling the patient. Theresa Hamilton M.D. Cashier Host/Hostess Division of Colon and Rectal Surgery Department of Surgery GM:deven cc: Lisseth Estes MD [facility] Physicians Family Medicine [facility] [address] [place] [facility] [address] [place] [address] DD 01/14/2009 Electronically signed by:Theresa Hamilton M.D. Jan 17 2009 5:30AM MUSICAL INSTRUMENT MAKER OR REPAIRER Author documented in this encounter Plan of Treatment Upcoming Encounters Date Type Specialty Care Team Description 09/10/2022 Office Visit Internal Medicine Margot Branham MD [address] [place] [address] (Wo rk) documented as of this encounter Visit Diagnoses Not on filedocumented in this encounter
--- OUTSIDE RECORDS SUMMARY | 2022-07-30 20:17 | XMS_ITS | Encounter Summary ---
:1945 Author Organization [place] Address [address] [place] [address]. [place] [address] Care Team Providers Name Role Phone Unavailable [...] Unknown, Provider - 02/04/2009 8:00 AM CDT Clinical Application Manager: Giselle Syed Status: Final Encounter: 04 Feb 2009 Type: Rooming Note Reason For Visit YIMI GARCIA is a 63 year old female presenting today with sinus congestion and ear infection not too long ago. Do you have any other appointments of any type today within the [facility] system? (this includes clinic appt's, Imaging, [...] By: Giselle Syed MA; 02/04/2009 8:15 AM ACQUISITION ADVISOR. documented in this encounter Plan of Treatment Upcoming Encounters Date Type Specialty Care Team Description 09/10/2022 Office Visit Internal Medicine LogeaMargot man MD [address] [place] [phone] (Wo rk) documented as of this encounter Visit Diagnoses Not on filedocumented in this encounter
--- OUTSIDE RECORDS SUMMARY | 2022-07-30 20:17 | XMS_ITS | Encounter Summary ---
:1945 Author Organization [place] Address [address] [place] [address] Care Team Providers Name Role Phone Unavailable Primary Care Provider Unavailable Encounter Details Date Type Department Care Team Description 05/16/2008 Historic Results Physicians, Primary [place], Mehreen Butler, [facility] MD PhD 3rd Floor, Clinic 3A [address] [facility] [place] [phone] Social History Tobacco Use Types Packs/Day Years Used Date Smoking Tobacco: Never Assessed Sex Assigned at Date Recorded Female 12/20/2018 4:10 PM CDT documented as of this encounter Plan of Treatment Upcoming Encounters Date Type Specialty Care Team Description 09/10/2022 Office Visit Internal Medicine Logeais, MD Margot [address] [address] (Wo rk) documented as [...] UA with microscopic (05/16/2008 11:36 AM CDT) [facility] Method Time Signature Source Midstream MISYS Urine Color Urine Yellow MISYS Appearance Urine Slightly MISYS Cloudy Glucose Urine Negative NEG mg/dL MISYS Bilirubin Urine Negative NEG MISYS Ketones Urine Negative NEG mg/dL MISYS Specific [place] 1.026 1.003 - MISYS Urine 1.035 Blood [...] LAB - URINE ORDERABLES Performing Organization Address City/State/[facility] Phon e Number [place] Urine culture (05/16/2008 11:36 AM CDT) [facility] gist Method Time Signature Specimen Midstream MISYS Description Urine Culture Micro No growth MIS[place] Micro Report FINAL MISYS Status 05/17/2008 Specimen Anatomical Collection Method Collection Time Receive d Time (Source) Location / / Volume Laterality 05/16/2008 11:36 05/16/2008 AM CDT 11:38 AM CDT Mehreen Johnston MD PhD LAB - MICRO GENERAL ORDERABL ES Performing Organization Address City/State/[facility] Phon e Number [place] documented in this encounter Visit Diagnoses Not on filedocumented in this encounter
--- OUTSIDE RECORDS SUMMARY | 2022-07-30 20:17 | XMS_ITS | Encounter Summary ---
:1945 Author Organization [facility] Address [address] [place] [address]. [place] [address] Care Team Providers Name Role Phone Unavailable Primary Care Provider Unavailable Encounter Details Date Type Department Care Team Description 04/29/2009 Office Visit-[facility] Colon and Rectal Surgery Fauzia Hamilton MD [place] [address] [facility] Building [address] 1st Floor, Clinic [address] [place] [address] Social History Tobacco Use Types Packs/Day Years Used Date Smoking Tobacco: Never Alcohol Use Standard Drinks/Week Comments Not Asked 0 (1 standard drink = 0.6 oz pure alcoho l) Sex Assigned at Date Recorded Female 12/20/2018 4:10 PM CDT documented as of this encounter Progress Notes Theresa Hamilton - 04/29/2009 11:45 AM CDT Solo Truck Driver: Theresa Hamilton Status: Final - Signature Encounter: 29 Apr 2009 Type: Colon Rectal Visit Colon & Rectal Surgery Clinic Department of Surgery [place] Mail Code 450 [address] [place] [address] [facility] First Floor, Clinic [address]E [address] [place] [address] RE: Ramona Sheikh : 1945 MUSA: 04/29/2009 [...] cancer. We have reviewed her colonoscopy results [id number]. She will get a colonoscopy in one [...] spent counseling the patient. Theresa Hamilton M.D. Customs Agent Division of Colon and Rectal Surgery Department of Surgery GM:11 cc: Lisseth Estes M.D. [facility] ОЛЬГА [place] [address] [address] DD 04/29/2009 Electronically signed by:Theresa Hamilton M.D. May 14 2009 11:15PM FINISH CLEANER Author documented in this encounter Plan of Treatment Upcoming Encounters Date Type Specialty Care Team Description 09/10/2022 Office Visit Internal Medicine LogeaisMargot MD [address] [place] [phone] (Wo rk) documented as of this encounter Visit Diagnoses Not on filedocumented in this encounter
--- OUTSIDE RECORDS SUMMARY | 2022-07-30 20:17 | XMS_ITS | Encounter Summary ---
:1945 Author Organization [facility] Address [address] [place] [address]. [place] [address] Care Team Providers Name Role Phone Unavailable [...] Unknown, Provider - 04/02/2009 10:30 AM CDT Insurance Defense Attorney: Raquel Velasco Status: Final Encounter: 02 Apr 2009 Type: Rooming Note Reason For Visit YIMI GARCIA is a 63 year old female who presents today for a Tremor Evaluation. Do you have any other appointments, tests or procedures within the [facility] system for this same day? Yes; ENT. [...] By: Raquel Velasco ; 04/02/2009 10:47 AM SURGICAL ORDERLY. documented in this encounter Plan of Treatment Upcoming Encounters Date Type Specialty Care Team Description 09/10/2022 Office Visit Internal Medicine Margot Branham MD [address] [place] [address] (Wo rk) documented as of this encounter Visit Diagnoses Not on filedocumented in this encounter
--- OUTSIDE RECORDS SUMMARY | 2022-07-30 20:17 | XMS_ITS | Encounter Summary ---
:1945 Author Organization [facility] Address [address] [place] [address] Care Team Providers Name Role Phone Lisseth Vang MD Primary Care Provider Mehreen Johnston MD PhD Primary Care Provider [phone] Encounter Details Date Type Department Care Team [...] Office Visit Internal Medicine LogeaisMargot MD [address] [place] [address] [phone] (Wo rk) documented as of this encounter Procedures Procedure Name Priority Date/Time Associated Diagnosis Comme nts EKG 12 LEAD Routine 10/05/2008 11:54 AM Results for this CAFE MANAGER procedure are i n the results section . documented in this encounter Results EKG 12 LEAD (10/05/2008 11:54 AM CAFE MANAGER) [facility] Method Time Signature Ventricular Rate 62 BPM RADIOLOGY RESULTS Atrial Rate 62 BPM RADIOLOGY RESULTS [place] Interval 152 ms RADIOLOGY RESULTS QRS Duration 102 ms RADIOLOGY RESULTS QT 428 ms RADIOLOGY RESULTS QTc 434 ms RADIOLOGY RESULTS P [place] 29 degrees RADIOLOGY RESULTS R AXIS 21 degrees RADIOLOGY RESULTS T [place] 55 degrees RADIOLOGY RESULTS Interpretation Sinus rhythm RADIOLOGY ECG Normal ECG RESULTS No previous ECGs available Study patient: this is a computer generated report only Specimen Anatomical Collection Method Collection Time Receive d Time (Source) Location / / Volume Laterality 10/05/2008 11:54 10/09/2008 AM CAFE MANAGER 10:05 AM CAFE MANAGER Transcripton Interface ECG ORDERABLES Performing Organization Address City/State/ZIP Code Phon e Number RADIOLOGY RESULTS documented in this encounter Visit Diagnoses Not on filedocumented in this encounter Care Teams Second Time Worker Relationship Specialty Start Date End Date Lisseth Vang MD PCP - General 02/05/11 03/18/[address] [place] [address] Mehreen Johnston MD PhD PCP - General Family Practice 03/19/11 11/15/11 documented as of this encounter
--- OUTSIDE RECORDS SUMMARY | 2022-07-30 20:17 | XMS_ITS | Encounter Summary ---
:1945 Author Organization [place] Address [facility] [place] [address] Care Team Providers Name Role Phone Unavailable Primary Care Provider Unavailable Encounter Details Date Type Department Care Team Description 05/02/2008 Results Only [facility] Emerald Vang, [facility] Results [address] [place], [place] [address] (Wo rk) Social History Tobacco Use Types Packs/Day Years Used Date Smoking Tobacco: Never Assessed Sex Assigned at Date Recorded Female 12/20/2018 4:10 PM CDT documented as of this encounter Plan of Treatment Upcoming Encounters Date Type Specialty Care Team Description 09/10/2022 Office Visit Internal Medicine Margot Branham MD [address] [phone] (Wo rk) documented as of this encounter [...] CDT Impressions 05/10/2008 7:26 PM CDT ?? [facility] ?? [facility] [address], [place] [address] Phone: ?? Fax: ?? WRIST Bone Densitometry Report: 8 ?? SHANELL ABREU: ?? Your patient, YIMI GARCIA ([id number] ), completed a DXA exam on a [employer] Online Video on 05/02/2008 ? Wrist results are reported and filed und er accession # [id number] ?? Feel free to contact DXA services if you have any questions or comments. ??Thank you for the opportunit y to be of service to you and your patient. ?? Principal result health program specialist: Buffy Chandler MD, CCD Construction Craft Laborereight arm operator Division of Rheumatic and Autoimmune Dis eases [facility] Physicians ??Out patient Imaging Center DXA Services ph #: ??[phone] fax #: ??[phone] ___ ? Shanell Vang MD SPECIAL IMAGING STUDIES DEXA,BONE DENSITY,AXIAL SKELETON (05/02/2008 8:01 AM CDT) Anatomical Region Laterality Modality Other Specimen (Source) Anatomical Collection Method Collection Time Re ceived Time Location / / Volume Laterality 05/02/2008 8:01 AM CDT Impressions 05/09/2008 10:50 AM CDT ?? [facility] ?? Kris [facility] [address] [place], [place] [address] Phone: ?? Fax: ?? Bone Densitometry Report: 05/02/2008 ?? SHANELL ABREU: ?? Your patient, YIMI GARCIA ([id number] ), completed a DXA exam ([id number] ) on a Sunpreme on 05/02/2008 . The following is a [...] previous DXA scan had been performed at [facility] at an un stated year, likely on [...] PACS - PATIENT HISTORY TI MELINE or [facility] - CHART VIEWER. ?? IF YOU ARE UNABLE TO ACCESS PACS OR [employer] CRIPTS OR WOULD LIKE A HARD COPY OF THE TABLED RESULTS, CALL THE [facility] OUTPATIENT IMAGING [facility]ENTER AT [phone]. THE TABLED RESULTS FELTON L BE RETRIEVED AND FAXED TO YOU. ?? ONLY TEXT FORMAT, NOT TABLES, ARE COMPAT IBLE WITH [facility]. ??THE RESULTS PRESENTED ON THIS PAGE ARE AVAILABLE IN [facility] AND [facility] - RESULTS. ? ___ ?? Conclusions: ?? [...] you and your patient. ?? Principal result health program specialist: Buffy Chandler MD, CCD Construction Craft Laborereight arm operator Division of Rheumatic and Autoimmune Dis eases [facility] Services ph #: ??[phone] fax #: ??[phone] ___ ?? References: ?? 1. ??NOF Physician's Guideline Website a ddress: ??www.nof.org ?? 2. ??[place] [employer] Re commendations for the Prevention and Treatment of Glucocortico id-induced Osteoporosis: ?? 2000 update in Arthritis and Rheumatism ??April 2001 edition (vol 44, issue 7) pp 6780 - 1508 . ?? 3. ??ISCD position statements: ??www.isc [...]
--- OUTSIDE RECORDS SUMMARY | 2022-07-30 20:17 | XMS_ITS | Encounter Summary ---
:1945 Author Organization [facility] Address [address] [place] [address]. [place] [address] Care Team Providers Name Role Phone Unavailable Primary Care Provider Unavailable Encounter Details Date Type Department Care Team Description 04/19/2008 Office Visit-[facility] Susana Leach MD Clinic [address] [place] [address] [place] [address] [place] [address] [place] [phone] Social History Tobacco Use Types Packs/Day Years Used Date Smoking Tobacco: Never Assessed Sex Assigned at Date Recorded Female 12/20/2018 4:10 PM CDT documented as of this encounter Progress Notes Calvin Susana - 04/19/2008 9:30 AM CDT Supervisor Audit Clerks: Susana Soria Status: Final - Signature Encounter: 19 Apr 2008 Type: [facility] in Women???s Health Susana Yadav M.D. [facility] [address] [place] [address], [address] [place] [address] April 19, 2008 Lisseth Vang M.D. [facility] [address] [address] RE: Ramona Sheikh : 1945 MUSA: 04/19/2008 [...] for a Matias procedure, left hip replacement [id number] and breast reduction approximately 11 years ago. [...] she was given the web site of [employer] as a good place to obtain them. [...] history and counseling. Sincerely, Susana Yadav M.D. Lumber Checker Department of Obstetrics, Gynecology, and Women's Health JL:[email or web address] Electronically signed by:SUSANA SORIA M.D. Apr 23 2008 2:07PM GUIDANCE AND CONTROL SYSTEM ENGINEER documented in this encounter Plan of Treatment Upcoming Encounters Date Type Specialty Care Team Description 09/10/2022 Office Visit Internal Medicine Margot Branham MD [address] [place] [address] (Wo rk) documented as of this encounter Visit Diagnoses Not on filedocumented in this encounter
--- OUTSIDE RECORDS SUMMARY | 2022-07-30 20:17 | XMS_ITS | Encounter Summary ---
:1945 Author Organization [facility] Address [address] [place] [address] Care Team Providers Name Role Phone Unavailable Primary Care Provider Unavailable Encounter Details Date Type Department Care Team Description 05/01/2008 Historic Results Women's Health Shanell Rocha Phillips-Wangensteen MD [address] Floor, Clinic [address] [place] [address]45 [phone] (Wo rk) Social History Tobacco Use Types Packs/Day Years Used Date Smoking Tobacco: Never Assessed Sex Assigned at Date Recorded Female 12/20/2018 4:10 PM CDT documented as of this encounter Plan of Treatment Upcoming Encounters Date Type Specialty Care Team Description 09/10/2022 Office Visit Internal Medicine Magrot Branham MD [address] [place] [phone] (Wo rk) documented as of this encounter Procedures Procedure Name Priority Date/Time Associated Diagnosis Comme nts CYTOPATHOLOGY Routine 05/01/2008 12:00 AM Results for this CDT procedure are i n the results section . documented in this encounter Results Cytopathology (05/01/2008 12:00 AM CDT) Component Value Ref Test Analysis Performed At [facility] Range Method Time Signature Copath Report CASE: [id number] ^ COPATH PAP ?NIL Patient Name: YIMI GARCIA MR#: [id number] Specimen #: [id number] Collected: 05/01/2008 Received: 05/01/2008 Reported: 05/03/2008 09:25 [...] EITAN Abbott (ASCP) Processed and screened at [facility] CLINICAL HISTORY: Post Menopausal, TESTING LAB LOCATION: [facility], [address] ??[address] COLLECTION SITE: Client: ??[facility] Location: [facility] (B) Specimen (Source) Anatomical Collection Method Collection Time Re ceived Time Location / / Volume Laterality 05/01/2008 05/03/2008 9:26 AM CDT Shanell Vang MD LAB - COPATH SPECIAL DIAG OR DERABLES Performing Organization Address City/State/ZIP Code Phon e Number COPATH documented in this encounter Visit Diagnoses Not on filedocumented in this encounter
--- OUTSIDE RECORDS SUMMARY | 2022-07-30 20:17 | XMS_ITS | Encounter Summary ---
:1945 Author Organization [facility] Address [address] [place] [address]. [place] [address] Care Team Providers Name Role Phone Unavailable Primary Care Provider Unavailable Encounter Details Date Type Department Care Team Description 05/16/2008 Office Visit-[facility] Women's Health Mehreen Green Phillips-Wangensteen MD PhD [address] 1st Floor, Clinic [address] [place] [address] (Wo rk) [address] [phone] Social History Tobacco Use Types Packs/Day Years Used Date Smoking Tobacco: Never Assessed Sex Assigned at Date Recorded Female 12/20/2018 4:10 PM CDT documented as of this encounter Progress Notes Mehreen Johnston - 05/16/2008 10:00 AM CDT Evp Managing Director: Mehreen Johnston Status: Final Encounter: 16 May 2008 Type: [facility] Visit Reason For Visit Follow-up. Allergies No [...] By: Mehreen Johnston M.D.,PhD; 05/17/2008 12:36 PM CREATIVE GURU. Mehreen Johnston - 05/16/2008 10:00 AM CDT Evp Managing Director: Mehreen Johnston Status: Final - Signature Encounter: 16 May 2008 Type: [facility] Visit Family Practice & [facility] Department of Family Medicine [place] Mail Code [address] [place] [address] Office: [phone] [facility]???[facility], [place] [address] Phone:\[phone] Fax:\[phone] RE: Ramona Sheikh : 1945 MUSA: 05/16/2008 [...] lot of water. Mehreen Johnston MD, PhD emergency dispatcher [facility] [phone] or [phone] SA:[email or web address] Electronically signed by:Mehreen Johnston M.D.,PhD May 17 2008 12:47PM CREATIVE GURU documented in this encounter Plan of Treatment Upcoming Encounters Date Type Specialty Care Team Description 09/10/2022 Office Visit Internal Medicine Margot Branham MD [address] [place] [address] (Wo rk) documented as of this encounter Visit Diagnoses Not on filedocumented in this encounter
--- OUTSIDE RECORDS SUMMARY | 2022-07-30 20:17 | XMS_ITS | Encounter Summary ---
:1945 Author Organization [facility] Address [address] [place] [address]. [place] [address] Care Team Providers Name Role Phone Unavailable Primary Care Provider Unavailable Encounter Details Date Type Department Care Team Description 01/14/2009 Office Visit-[facility] INTERFACE [facility] DEPT Provider, [facility] Nurs e Social History Tobacco Use Types Packs/Day Years Used Date Smoking Tobacco: Never Alcohol Use Standard Drinks/Week Comments Not Asked 0 (1 standard drink = 0.6 oz pure alcoho l) Sex Assigned at Date Recorded Female 12/20/2018 4:10 PM CDT documented as of this encounter Progress Notes Provider, [facility] Nurse - 01/14/2009 8:00 AM CDT Manager Council: Margot Dudley Status: Final Encounter: 14 Jan 2009 Type: Rooming Note Reason For Visit Pre Visit Planning Document - Do not use for clinical treatment Pt. called/ unable to leave message, voicemail full. Patient presents today for hemorrhoid consultation. cc: enrrique-anal itching, rectal bleeding on tissue, discomfort after bowel movements. Do you have any other appointments, tests or procedures within the [facility] system for this same day?no. Pain Eval [...] By: Kalpana Gutiérrez LPN; 01/10/2009 2:52 PM CAFETERIA COUNTER ATTENDANT. Electronically Signed By: Margot Dudley ; 01/14/2009 8:20 AM CAFETERIA COUNTER ATTENDANT. documented in this encounter Plan of Treatment Upcoming Encounters Date Type Specialty Care Team Description 09/10/2022 Office Visit Internal Medicine LogeaisMargot MD [address] [place] [address] (Wo rk) documented as of this encounter Visit Diagnoses Not on filedocumented in this encounter
--- OUTSIDE RECORDS SUMMARY | 2022-07-30 20:17 | XMS_ITS | Encounter Summary ---
:1945 Author Organization [facility] Address [address] [place] [address]. [place] [address] Care Team Providers Name Role Phone Unavailable Primary Care Provider Unavailable Encounter Details Date Type Department Care Team Description 04/02/2009 Office Visit-[facility] Neurology Clinic Son Bermudez Phillips-Wangensteen MD [address] 1st Floor, Clinic [address] [phone] (Wo rk) [address] [phone] Social History Tobacco Use Types Packs/Day Years Used Date Smoking Tobacco: Never Alcohol Use Standard Drinks/Week Comments Not Asked 0 (1 standard drink = 0.6 oz pure alcoho l) Sex Assigned at Date Recorded Female 12/20/2018 4:10 PM CDT documented as of this encounter Progress Notes Son Bermudez - 04/02/2009 10:30 AM CDT Gambling Floor Supervisor: Son Bermudez Status: Final - Signature Encounter: 02 Apr 2009 Type: Neurology Visit Neurology Clinic [address] [place] [address] Clinic [address] [place] [address] Telephone [phone] Fax RE: Ramona Sheikh : 1945 MUSA: 04/02/2009 CONSULTATION HISTORY OF PRESENT ILLNESS: Ramona arrives today for a consultation for her head tremor. She had seen Balbir Cox 4 years ago. 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 She has had tremor that [...] HISTORY: She is . She lives in [place] and is a teacher in the [employer]. She has a son who [...] 75, respirations not recorded, height 67 inches, [id number]. No carotid bruits. Chest: Clear. Heart: Regular, [...] tricks. She has no postural tremor. Her galgvq-unqq-djhbsg and gudk-yu-owol are accurate. Strength is intact. Reflexes are [...] see her in consultation. Son Bermudez M.D. Lab Aide of Neurology PT:11 cc: MD Mercedes Hoover [address] [facility] [place] [facility] [place] [address] Electronically signed by:Son Bermudez MD Apr 04 2009 7:07AM VP SOFTWARE documented in this encounter Plan of Treatment Upcoming Encounters Date Type Specialty Care Team Description 09/10/2022 Office Visit Internal Medicine LogeaisMargot MD [address] [place] [address] (Wo rk) documented as of this encounter Visit Diagnoses Not on filedocumented in this encounter
--- OUTSIDE RECORDS SUMMARY | 2022-07-30 20:17 | XMS_ITS | Encounter Summary ---
:1945 Author Organization [facility] Address [address] [place] [address]. [place] [address] Care Team Providers Name Role Phone Unavailable [...] Unknown, Provider - 12/03/2008 3:00 PM CST Linking Machine Operator: Obdulio Delacruz Status: Final Encounter: 03 Dec 2008 Type: Rooming Note Reason For Visit PATIENT RESCHEDULED THIS APPOINTMENT TO March Pre Visit Planning Document Tremor Are you diabetic? No Do you have any other appointments, tests or procedures within the [facility] system for this same day? No. Active [...] By: Obdulio Delacruz CMA; 12/04/2008 3:06 PM FITTING ROOM OPERATOR. documented in this encounter Plan of Treatment Upcoming Encounters Date Type Specialty Care Team Description 09/10/2022 Office Visit Internal Medicine LogeaisMargot MD [address] [place] [address] (Wo rk) documented as of this encounter Visit Diagnoses Not on filedocumented in this encounter
--- OUTSIDE RECORDS SUMMARY | 2022-07-30 20:17 | XMS_ITS | Encounter Summary ---
:1945 Author Organization [facility] Address [address] [place] [address]. [place] [address] Care Team Providers Name Role Phone Lisseth Vang MD Primary Care Provider Mhereen Johnston MD PhD Primary Care Provider [phone] Lisseth Vang MD Primary Care Provider Mehreen Johnston MD PhD Primary Care Provider [phone] Balbir Simpson MD Primary Care Provider [phone] Carlota Landeros MD Unavailable Balbir Simpson MD Unavailable [phone] Luz Maria Kelly MD Unavailable Lisseth Vang MD Unavailable Encounter Details Date Type Department Care Team Description 10/05/2008 [facility] Info Mgmt Scan, Provider [facility] [address] [place] [address] Social History Tobacco Use Types Packs/Day Years Used Date Smoking Tobacco: Never Assessed Sex Assigned at Date Recorded Female 12/20/2018 4:10 PM CDT documented as of this encounter Plan of Treatment Upcoming Encounters Date Type Specialty Care Team Description 09/10/2022 Office Visit Internal Medicine LogeaMargot man MD [address] [place] [address] (Wo rk) documented as of this [...] on filedocumented in this encounter Care Teams Handle Bar Assembler Relationship Specialty Start Date End Date Lisseth Vang MD PCP - General 02/05/11 03/18/[address] [place], [place] [address] Mehreen Johnston MD PhD PCP - [facility] Practice 03/19/11 11/15/11 Lisseth Vang MD PCP - General 04/13/16 11/14/[address] [place], [place] [address] Mehreen Johnston MD PhD PCP - [facility] Family Practice 11/27/13 03/25/15 Balbir Simpson, PCP - General Internal Medicine 03/26/15 04/12/16 Carlota Landeros MD MD Urology 04/10/[address] [place], [place] [address] Balbir Simpson, Referring Physician Internal Medicine 04/0303/29/16 Luz Maria Kelly MD MD Internal Medicine 03/27/16 02/22/17 Lisseth Vang MD PCP Family Practice 03/30/16 11/14/[address] [facility] [address] [place] [address] documented as of this encounter
--- OUTSIDE RECORDS SUMMARY | 2022-07-30 20:17 | XMS_ITS | Encounter Summary ---
:1945 Author Organization [facility] Address [address] [place] [address]. [place] [address] Care Team Providers Name Role Phone Unavailable [...] Unknown, Provider - 05/24/2009 1:03 PM CDT House Admin: Ann Marie Maloney Status: Final - Signature Encounter: 24 May 2009 Type: Chart Note pt calls today stating that she would like to set up a follow up for hemroidal bacnding with Dr. harmon- when she returns from her leave-pt transferred to production scheduler. Electronically signed by:Ann Marie Maloney RN May 24 2009 1:06PM FIRE BOSS documented in this encounter Plan of Treatment Upcoming Encounters Date Type Specialty Care Team Description 09/10/2022 Office Visit Internal Medicine LogMargot sadler MD [address] [address] (Wo rk) documented as of this encounter Visit Diagnoses Not on filedocumented in this encounter
--- OUTSIDE RECORDS SUMMARY | 2022-07-30 20:17 | XMS_ITS | Encounter Summary ---
:1945 Author Organization [facility] Address [address] [place] [address]. [place] [address] Care Team Providers Name Role Phone Unavailable [...] Unknown, Provider - 04/29/2009 11:45 AM CDT [employer]iconductor Packages Platemaker: Margot Dudley Status: Final Encounter: 29 Apr 2009 Type: Rooming Note Reason For Visit Cc: enrrique anal discomfort. Do you have any other appointments, tests or procedures within the [facility] system for this same day? No. Pain [...] By: Margot Dudley ; 04/30/2009 11:36 AM SENIOR ACCOUNT DIRECTOR. documented in this encounter Plan of Treatment Upcoming Encounters Date Type Specialty Care Team Description 09/10/2022 Office Visit Internal Medicine LogeaisMargot MD [address] [place] [phone] (Wo rk) documented as of this encounter Visit Diagnoses Not on filedocumented in this encounter
--- OUTSIDE RECORDS SUMMARY | 2022-07-30 20:17 | XMS_ITS | Encounter Summary ---
:1945 Author Organization [place] Address [address] [place] [address] Care Team Providers Name Role Phone Unavailable Primary Care Provider Unavailable Encounter Details Date Type Department Care Team Description 10/05/2008 Historic Results [facility] Anh Costa, Physicians Heart GAS LEAK INSPECTOR PAUL Mota [facility] 4th Floor, Clinic [address] [phone] Social History Tobacco Use Types Packs/Day Years Used Date Smoking Tobacco: Never Assessed Sex Assigned at Date Recorded Female 12/20/2018 4:10 PM CDT documented as of this encounter Plan of Treatment Upcoming Encounters Date Type Specialty Care Team Description 09/10/2022 Office Visit Internal Medicine LogeaMargot man MD [address] [place] [phone] (Wo rk) documented as of this encounter Procedures Procedure Name Priority Date/Time Associated Comments Diagnosis MICROALBUMIN RANDOM Routine 10/05/2008 10:44 Resu lts for this URINE AM BARBER procedure are i n the results section. N TERMINAL PRO BNP Routine 10/05/2008 10:44 Resul ts for this OUTPATIENT AM BARBER procedure are i n the results section. LIPID PROFILE Routine 10/05/2008 10:44 Results fo r this AM BARBER procedure are i n the results section. CRP CARDIAC RISK Routine 10/05/2008 10:44 Results for this AM BARBER procedure are i n the results section. CREATININE URINE Routine 10/05/2008 10:44 Results for this CALCULATION ONLY (LAB AM BARBER proced ure are in ONLY) the results section. GLUCOSE Routine 10/05/2008 10:44 Results for this AM BARBER procedure are i n the results section. documented in this encounter Results (ABNORMAL) Lipid panel (10/05/2008 10:44 AM BARBER) P athologist Signature Cholesterol 222 (H) 0 [...] / Volume Laterality 10/05/2008 10:44 10/05/2008 AM BARBER 10:50 AM BARBER Anh Costa APRN, CNP LAB - BLOOD ORDERABLES Performing Organization Address City/State/ZIP Code Phon e Number MISYS CRP cardiac risk (10/05/2008 10:44 AM BARBER) athologist Signature CRP Cardiac 5.3 mg/L MISYS Risk Comment: Reference Values: Low Risk: ? <1.0 mg/L Average Risk: ? 1.0-3.0 mg/L High Risk: ?>3.0 mg/L Acute Inflammation: >8.0 mg/L Specimen Anatomical Collection Method Collection Time Receive d Time (Source) Location / / Volume Laterality 10/05/2008 10:44 10/05/2008 AM BARBER 10:50 AM BARBER Anh Costa APRN, CNP LAB - BLOOD ORDERABLES Performing Organization Address City/State/ZIP Code Phon e Number MISYS Glucose (10/05/2008 10:44 AM BARBER) athologist Signature Glucose 88 60 - 99 MISYS mg/dL Specimen Anatomical Collection Method Collection Time Receive d Time (Source) Location / / Volume Laterality 10/05/2008 10:44 10/05/2008 AM BARBER 10:50 AM BARBER Anh Costa APRN, CNP LAB - BLOOD ORDERABLES Performing Organization Address [facility] Code Phon e Number MISYS (ABNORMAL) N terminal pro BNP outpatient (10/05/2008 10:44 AM BARBER) P athologist Signature N-Terminal Pro 296 (H) [...] / Volume Laterality 10/05/2008 10:44 10/05/2008 AM BARBER 10:50 AM BARBER Anh Costa APRN, CNP LAB - BLOOD ORDERABLES Performing Organization Address [facility]/ZIP Code Phon e Number MISYS Creatinine urine calculation only (10/05/2008 10:44 AM BARBER) P athologist Signature Creatinine Urine 168 mg/dL MISYS Specimen Anatomical Collection Method Collection Time Receive d Time (Source) Location / / Volume Laterality 10/05/2008 10:44 10/05/2008 AM BARBER 10:50 AM BARBER Anh Costa APRN, CNP LAB - URINE ORDERABLES Performing Organization Address City/[facility]/ZIP Code Phon e Number MISYS Microalbumin random urine (10/05/2008 10:44 AM BARBER) Patholo gist Method Time Signature Albumin Urine <2 mg/L MISYS mg/L Albumin Urine Unable to 0 - 20 MISYS mg/g Cr calculate mg/g Cr Specimen Anatomical Collection Method Collection Time Receive d Time (Source) Location / / Volume Laterality 10/05/2008 10:44 10/05/2008 AM BARBER 10:50 AM BARBER Anh Costa APRN MANAGER E LEARNING LAB - URINE ORDERABLES Performing Organization Address City/State/ZIP Code Phon e Number MISYS documented in this encounter Visit Diagnoses Not on filedocumented in this encounter
--- OUTSIDE RECORDS SUMMARY | 2022-07-30 20:17 | XMS_ITS | Encounter Summary ---
:1945 Author Organization [place] Address [address] [place] [address]. [place] [address] Care Team Providers Name Role Phone Unavailable Primary Care Provider Unavailable Reason for Visit Reason Comments Urgent Care Sinus Problem Encounter Details Date Type Department Care Team Description 12/10/2008 Office Visit [facility] Parul Armas Acute Max[facility] [place] FRANCIS Devlin Sinusit is (Primary [place] Dx) [address] [place] [address] Social History Tobacco Use Types [...] contact PCP for further evaluation Parul Armas, BAND LOG MILL AND CARRIAGE OPERATOR-BC documented in this encounter Nursing Notes 12/10/2008 [...] Visit Internal Medicine LogeaMargot man MD [address] [phone] (Wo rk) documented as of this encounter Visit Diagnoses Diagnosis Acute maxillary sinusitis - Primary documented in this encounter
--- OUTSIDE RECORDS SUMMARY | 2022-07-30 20:17 | XMS_ITS | Encounter Summary ---
:1945 Author Organization [place] Address [address] [place] [address]. [place] [address] Care Team Providers Name Role Phone Unavailable Primary Care Provider Unavailable Reason for Visit Reason Comments Urgent Care Eye Problem Encounter Details Date Type Department Care Team Description 12/09/2008 Office Visit [facility] Jessica Young MD Conjunctivitis, Acute Urgent Care [facility]IC[facility]ANS (Primary Dx) [place] [phone] [place] [address] [phone] (Wo rk) Social History Tobacco Use Types Packs/Day Years Used Date Smoking Tobacco: Never Alcohol Use Standard Drinks/Week Comments Not Asked 0 (1 standard drink = 0.6 oz pure alcoho l) Sex Assigned at Date Recorded Female 12/20/2018 4:10 PM CDT documented as of this encounter Last Filed Vital Signs Vital Sign Reading Time Taken Comments Blood Pressure 120/70 12/09/2008 12:45 PM CDT Pulse 83 12/09/2008 12:45 PM CDT Temperature 36.6 ??C (97.9 ??F) 12/09/2008 12:45 PM CDT Respiratory Rate - - Oxygen Saturation 98% 12/09/2008 12:45 PM CDT Inhaled Oxygen Concentration - - Weight - - Height - - Body Mass Index - - documented in this encounter Progress Notes Shirin Ruiz - 12/09/2008 12:38 PM CDT SUBJECTIVE: Ramona Sheikh is a 63 year old female who presents with complaints of an eye problem. Location: right eye Onset: 2 days ago. Symptoms are not changed since onset. Conjunctival symptoms: redness Eyelid symptoms pain Vision changes: no Recent history of eye trauma? no Sensitivity to light? No. Severe eye pain. No. Contact Lens use?: no URI or signs or symptoms of sinusitis Yes, cold sx and strep about 2 weeeks ago Visual Acuity: Not Applicable with correction. Eye try in the room?: no OBJECTIVE: There were no vitals taken for this visit. Patient appears well. Eye with findings typical of conjunctivitis; Conjunctival erythema present Discharge present. Lid findings show no cellulitic changes. The corneas are clear, PERRL. Visual acuity grossly normal. Fluorescein stain: negative and not performed ENT: Tms clear fluid bilaterally. O/p clear with mmm and no ulcerations or tonsillar exudate. Cv: rrr, nl s1/s2. No m/r/g. Resp: cta bilaterally without wheezes or crackles. Good a/e bilaterally. Ext: Warm, dry, well perfused. Normal cap refill. No peripheral cyanosis, clubbing, or edema. Skin: No concerning rashes or lesions. ASSESMENT/PLAN: 372.00A Conjunctivitis, Acute (primary encounter diagnosis) Comment: Treat with polytrim, symptomatic cares for cold symptoms. Follow up if cold sx persist. Plan: POLYTRIM 75677-3.1 UNIT/ML-% OP SOLN documented in this encounter Nursing Notes 12/09/2008 12:45 PM CDT >> SHIRIN Sparks Dec 09, 2008 12:42 PM Ramonabeba Sheikh presents for pink eye. Initial BP 120/70 Pulse 83 Temp (Src) 97.9 ??F (36.6 ??C) (Oral) SpO2 98% There is no height or weight on file to calculate BMI.. BP completed using cuff size: regular Shirin Ruiz LPN documented in this encounter Plan of Treatment Upcoming Encounters Date Type Specialty Care Team Description 09/10/2022 Office Visit Internal Medicine LogMargot sadler MD [address] [place] [phone] (Wo rk) documented as of this encounter Visit Diagnoses Diagnosis Conjunctivitis, acute - Primary Acute conjunctivitis, unspecified documented in this encounter
--- OUTSIDE RECORDS SUMMARY | 2022-07-30 20:17 | XMS_ITS | Encounter Summary ---
:1945 Author Organization [place] Address [address] [place] [address]. [place] [address] Care Team Providers Name Role Phone Unavailable Primary Care Provider Unavailable Encounter Details Date Type Department Care Team Description 05/08/2008 Office Visit-[facility] INTER[facility] P DEPT Quita Arriaga MD XX RESIGNED XX [place], [place] [address] (Wo rk) Social History Tobacco Use Types Packs/Day Years Used Date Smoking Tobacco: Never Assessed Sex Assigned at Date Recorded Female 12/20/2018 4:10 PM CDT documented as of this encounter Progress Notes Yimi Arriaga - 05/08/2008 8:09 AM CDT Pediatric Social Worker: Yimi Arriaga Status: Final - Signature Encounter: 08 May 2008 Type: DXA SCAN [facility] [address] [place] [address] 3-[facility], [place] [address] Phone: Fax: WRIST Bone Densitometry Report: 05/02/2008 SHANELL ABREU: Your patient, YIMI GARCIA ([id number] ), completed a DXA exam on a [employer] on 05/02/2008 Wrist results are reported and filed under accession # [id number] Feel free to contact DXA services if you have any questions or comments. Thank you for the opportunity to be of service to you and your patient. Principal result american sign language interpreter: Buffy Arriaga MD, CCD Patient Access Coordinatorpen maker Division of Rheumatic and Autoimmune Diseases [facility] DXA Services ph #: [phone] fax #: [phone] Electronically signed by:YIMI ARRIAGA MD May 09 2008 10:39AM ALTERNATIVE DISPUTE RESOLUTION MEDIATOR Author Yimi Arriaga - 05/08/2008 8:09 AM CDT Pediatric Social Worker: Yimi Arriaga Status: Final - Signature Encounter: 08 May 2008 Type: DXA SCAN [facility] [address] [place] [address] Phone: Fax: Bone Densitometry Report: 05/02/2008 SHANELL ABREU: Your patient, YIMI GARCIA ([id number] ), completed a DXA exam ([id number] ) on a [employer] on 05/02/2008 . The following is a [...] previous DXA scan had been performed at [facility] at an unstated year, likely on a [...] to you and your patient. Principal result american sign language interpreter: Buffy Arriaga MD, CCD Patient Access Coordinatorpen maker Division of Rheumatic and Autoimmune Diseases [facility] DXA Services #: [phone] fax #: [phone] References: 1. NOF Physician's Guideline Website address: www.nof.org 2. [place] [employer] Recommendations for the Prevention [...] by:YIMI ARRIAGA MD May 09 2008 10:40AM ALTERNATIVE DISPUTE RESOLUTION MEDIATOR Author documented in this encounter Plan of Treatment Upcoming Encounters Date Type Specialty Care Team Description 09/10/2022 Office Visit Internal Medicine Margot Branham MD [address] [phone] (Wo rk) documented as of this encounter Visit Diagnoses Not on filedocumented in this encounter
--- OUTSIDE RECORDS SUMMARY | 2022-07-30 20:17 | XMS_ITS | Encounter Summary ---
:1945 Author Organization [place] Address [address] [place] [address]. [address] Care Team Providers Name Role Phone Unavailable Primary Care Provider Unavailable Encounter Details Date Type Department Care Team Description 04/02/2009 Office Visit-[facility] INTERFACE [facility] DEPT Provider, [facility] Nurs e Social History Tobacco Use Types Packs/Day Years Used Date Smoking Tobacco: Never Alcohol Use Standard Drinks/Week Comments Not Asked 0 (1 standard drink = 0.6 oz pure alcoho l) Sex Assigned at Date Recorded Female 12/20/2018 4:10 PM CDT documented as of this encounter Progress Notes Provider, [facility] Nurse - 04/02/2009 12:00 PM CDT Signal Inspector: Nimisha Dennis Status: Amended, Final Encounter: 02 Apr 2009 Type: Rooming Note Reason For Visit YIMI GARCIA is a 63 year old female presenting today with f/u sinus check. Do you have any other appointments of any type today within the [facility] system? (this includes clinic appt's, [...] 168.0 lb, BMI: 26.3 kg/m2. Recorded by [employer] | [email or web address] on 02 Apr 2009 01:07 PM BP:136/80, HR: 67 b/min Amended By: Susan Harrison ; 04/02/2009 1:07 PM AVIONICS INTEGRATION ENGINEER. Allergies No Known Drug Allergy. Morphine Derivatives. [...] Signed By: Nimisha QUINN; 04/02/2009 12:24 PM AVIONICS INTEGRATION ENGINEER. Signed By: Nimisha QUINN; 04/03/2009 4:13 PM AVIONICS INTEGRATION ENGINEER. documented in this encounter Plan of Treatment Upcoming Encounters Date Type Specialty Care Team Description 09/10/2022 Office Visit Internal Medicine LogeaMargot man MD [address] [place] [phone] (Wo rk) documented as of this encounter Visit Diagnoses Not on filedocumented in this encounter"
--- OUTSIDE RECORDS SUMMARY | 2022-07-30 20:17 | XMS_ITS | Encounter Summary ---
:1945 Author Organization [place] Address [address] [place] [address]. [place] [address] Care Team Providers Name Role Phone Unavailable Primary Care Provider Unavailable Encounter Details Date Type Department Care Team Description 10/05/2008 Office Visit-[facility] Enid Costa, Physicians Heart GRADER MEAT PAUL Mota [facility] 4th Floor, Clinic [address]B [place] [phone] Social History Tobacco Use Types Packs/Day Years Used Date Smoking Tobacco: Never Assessed Sex Assigned at Date Recorded Female 12/20/2018 4:10 PM CDT documented as of this encounter Progress Notes En[place] Costa - 10/05/2008 10:00 AM CST Front Man: Enid Costa Status: Final Encounter: 05 Oct [...] foods. She uses a combination of the [employer] and [employer] diet. We discussed heart healthy nutrition and [...] hormone therapy- [place] [facility] [place] promet[place] and has been [...] 59, 66, 68, and 71, reported in [facility]. She has one brother, 55, who in a motor vehicle accident. Maternal grandmother at 84 of pancreatic cancer. Maternal grandfather at 82 of heart attack. Paternal grandmother at 65 of heart problems. Paternal grandfather at 70 of pneumonia after the flu. 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 She has one [...] By: ENID COSTA NJuana; 10/12/2008 2:29 PM VOCATIONAL AIDE. TIONAL AIDE documented in this encounter Plan of Treatment Upcoming Encounters Date Type Specialty Care Team Description 09/10/2022 Office Visit Internal Medicine Margot Branham MD [address] [phone] (Wo rk) documented as of this encounter Visit Diagnoses Not on filedocumented in this encounter
--- OUTSIDE RECORDS SUMMARY | 2022-07-30 20:17 | XMS_ITS | Encounter Summary ---
:1945 Author Organization [place] Address [address] [place] [address] Care Team Providers Name Role Phone Unavailable Primary Care Provider Unavailable Encounter Details Date Type Department Care Team Description 05/03/2008 Historic Results [facility] Lisseth Rocha Phillips-Wangensteen MD [address] 1st Floor, Clinic [address] [place] [phone] (Wo rk) Social History Tobacco Use Types Packs/Day Years Used Date Smoking Tobacco: Never Assessed Sex Assigned at Date Recorded Female 12/20/2018 4:10 PM CDT documented as of this encounter Plan of Treatment Upcoming Encounters Date Type Specialty Care Team Description 09/10/2022 Office Visit Internal Medicine Margot Branham MD [address] [place] [phone] (Wo rk) documented as of this encounter [...] LAB - BLOOD ORDERABLES Performing Organization Address [facility] Phon e Number MISYS CBC with [...] LAB - BLOOD ORDERABLES Performing Organization Address [facility] Phon e Number MISYS (ABNORMAL) CRP inflammation (05/03/2008 9:49 AM CDT) [facility] gist Method Time Signature CRP Inflammation 10.2 (H) 0.0 - 8.0 MISYS mg/L Specimen Anatomical Collection Method Collection Time Receive d Time (Source) Location / / Volume Laterality 05/03/2008 9:49 AM 8 9:40 CDT AM CDT Lisseth Vang MD LAB - BLOOD ORDERABLES Performing Organization Address City/[facility] Phon e Number MISYS TSH (05/03/2008 [...] and treatm ent affect the concentration of 46-omvzicg-Rrhyzfk D. Values may decrea se during winter [...]
--- OUTSIDE RECORDS SUMMARY | 2022-07-30 20:17 | XMS_ITS | Encounter Summary ---
:1945 Author Organization [place] Address [address] [place] [address]. [place] [address] Care Team Providers Name Role Phone Unavailable Primary Care Provider Unavailable Encounter Details Date Type Department Care Team Description 11/12/2008 Office Visit-[facility] INTERFACE [facility] DEPT Provider, [facility] Nurs e Social History Tobacco Use Types Packs/Day Years Used Date Smoking Tobacco: Never Assessed Sex Assigned at Date Recorded Female 12/20/2018 4:10 PM CDT documented as of this encounter Progress Notes Provider, [facility] Nurse - 11/12/2008 12:37 PM CST Tobacco Prizer: Katherine, Rita Status: Final - Signature Encounter: 12 Nov 2008 Type: Nurse Note pt LM on [facility] nurse line req. cb from Dr. Vang with recommendations on Colon specialist and Sinus specialist/tasked Dr. Vang Electronically signed by:Tiff Murphy Nov 12 2008 12:38PM DATA WAREHOUSE ARCHITECT documented in this encounter Plan of Treatment Upcoming Encounters Date Type Specialty Care Team Description 09/10/2022 Office Visit Internal Medicine Margot Branham MD [address] [phone] (Wo rk) documented as of this encounter Visit Diagnoses Not on filedocumented in this encounter
--- OUTSIDE RECORDS SUMMARY | 2022-07-30 20:18 | XMS_ITS | Encounter Summary ---
:1945 Author Organization [facility] Address [address] [place] [address]. [place] [address] Care Team Providers Name Role Phone Unavailable Primary Care Provider Unavailable Encounter Details Date Type Department Care Team Description 03/19/2008 Office Visit-[facility] Gynecologic Cancer C enter Provider, [facility] Nurse NakulClarice [facility] 1st Floor, Clinic [address] [place] [phone] Social History Tobacco Use Types Packs/Day Years Used Date Smoking Tobacco: Never Assessed Sex Assigned at Date Recorded Female 12/20/2018 4:10 PM CDT documented as of this encounter Progress Notes Provider, [facility] Nurse - 03/19/2008 2:20 PM CDT Railroad Switchman: Mansi Mckeon Status: Final Encounter: 19 Mar 2008 Type: [facility] Nurse Note Reason For Visit Sores in [...] By: Mansi Mckeon L.P.N.; 03/19/2008 2:37 PM CUSTOMER SOLUTIONS SPECIALIST. Provider, [facility] Nurse - 03/19/2008 2:20 PM CDT Railroad Switchman: Jennifer Fatemeh Status: Final Encounter: 19 Mar 2008 Type: AMB Nurse Triage Note Informant Time of call: 09:12 Date of call: 03/19/2008 Home Caller: Patient REASON FOR CALL: Symptomatic. Assessment Patient calling to report recent problem of vaginal area redness and irritation/sensitivity of the skin and now with pain X 4 days. Ramona had seen Dr Margot Pavon at [facility] for the vaginal redness and sensitivity and [...] on labia or vagina Appointment scheduled in [facility] clinic for this afternooon. Call back with any new or worsening symptoms/concerns. Coun/Edu Caller verbalized understanding of plan Caller agrees with advice given. Signature Electronically Signed By: Fatemeh Rodriguez R.N.; 03/19/2008 9:37 AM CUSTOMER SOLUTIONS SPECIALIST. documented in this encounter Plan of Treatment Upcoming Encounters Date Type Specialty Care Team Description 09/10/2022 Office Visit Internal Medicine LogeaMargot man MD [address] [place] [phone] (Wo rk) documented as of this encounter Visit Diagnoses Not on filedocumented in this encounter
--- OUTSIDE RECORDS SUMMARY | 2022-07-30 20:18 | XMS_ITS | Encounter Summary ---
:1945 Author Organization [place] Address [address] [place] [address]. [place] [address] Care Team Providers Name Role Phone Unavailable Primary Care Provider Unavailable Encounter Details Date Type Department Care Team Description 04/19/2008 Office Visit-[facility] Women's Health Lisseth Rocha Phillips-Wangensteen MD [address] 1st Floor, Clinic [address] [place], [place] [phone] (Wo rk) Social History Tobacco Use Types Packs/Day Years Used Date Smoking Tobacco: Never Assessed Sex Assigned at Date Recorded Female 12/20/2018 4:10 PM CDT documented as of this encounter Progress Notes Lisseth Vang - 04/19/2008 12:00 PM CDT Operations Forester: Lisseth Vang Status: Amended, Final Encounter: 19 Apr 2008 Type: [facility] Visit Reason For Visit Follow up to [...] By: Lisseth Grajeda ; 05/01/2008 10:17 PM COOKER HELPER. PMH 1) 1 para 1 status post in 1978. Was on and off hormone therapy- She was seen this at [facility] and started on prometrium and has been [...] her knees. 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 Supplements include vitamin D 1000 mg Amended By: Lisseth Estes ; 05/01/2008 10:18 PM COOKER HELPER. Physical Exam Pleasant woman in no acute [...] By: Mansi Mckeon L.P.N.; 04/19/2008 1:19 PM COOKER HELPER. Electronically Signed By: Lisseth Estes M.D.; 04/19/2008 2:10 PM COOKER HELPER. Electronically Signed By: Lisseth Estes M.D.; 05/01/2008 10:18 PM COOKER HELPER. documented in this encounter Plan of Treatment Upcoming Encounters Date Type Specialty Care Team Description 09/10/2022 Office Visit Internal Medicine Margot Branham MD [address] [place] [phone] (Wo rk) documented as of this encounter Visit Diagnoses Not on filedocumented in this encounter
--- OUTSIDE RECORDS SUMMARY | 2022-07-30 20:18 | XMS_ITS | Encounter Summary ---
:1945 Author Organization [place] Address [address] [place] [address] Care Team Providers Name Role Phone Unavailable Primary Care Provider Unavailable Encounter Details Date Type Department Care Team Description 04/19/2008 Historic Results INTERFACED REPORT Bessie Simpson MD [address] [place], [place] [phone] (Wo rk) Social History Tobacco Use Types Packs/Day Years Used Date Smoking Tobacco: Never Assessed Sex Assigned at Date Recorded Female 12/20/2018 4:10 PM CDT documented as of this encounter Plan of Treatment Upcoming Encounters Date Type Specialty Care Team Description 09/10/2022 Office Visit Internal Medicine LogeaMargot man MD [address] [phone] (Wo rk) documented as of this encounter [...] LAB - BLOOD ORDERABLES Performing Organization Address [facility] Code Phon e Number MISYS HIV 1 and 2 Antibody (04/19/2008 11:10 AM CDT) P athologist Signature HIV 1&2 Negative NEG MISYS Antibody Specimen Anatomical Collection Method Collection Time Receive d Time (Source) Location / / Volume Laterality 04/19/2008 11:10 04/19/2008 5:55 AM CDT PM CDT Susana Simpson MD LAB - BLOOD ORDERABLES Performing Organization Address [facility]/ZIP Code Phon e Number MISYS HSV 1 and 2 IgG IgM with reflex (04/19/2008 11:10 AM CDT) P athologist Signature Herpes Simplex 0.41 Index Value MISYS Virus IgM Antibody Comment: No detectable antibody. HSV IgG Antibody W/Reflex 5.08 Index Value GA SYS Comment: Positive Specimen Anatomical Collection Method Collection Time Receive d Time (Source) Location / / Volume Laterality 04/19/2008 11:10 04/19/2008 5:55 AM CDT PM CDT Susana Simpson MD LAB - BLOOD ORDERABLES Performing Organization Address [facility] Code Phon e Number MISYS Anti treponema EIA (04/19/2008 11:10 AM CDT) P athologist Signature Treponema Negative NEG MISYS pallidum Antibody Specimen Anatomical Collection Method Collection Time Receive d Time (Source) Location / / Volume Laterality 04/19/2008 11:10 04/19/2008 5:55 AM CDT PM CDT Susana Simpson MD LAB - BLOOD ORDERABLES Performing Organization Address City/[facility]/ZIP Code Phon e Number MISYS Chlamydia trachomatis PCR (04/19/2008 11:10 AM CDT) Component Value Ref Test Analysis Performed At [facility] Range Method Time Signature Specimen Cervix MISYS Description Chlamydia Negative for C. MISYS Trachomatis PCR trachomatis rRNA by client services analyst mediated amplification. Comment: A negative result by client services analyst medi ated amplification does not preclude the [...] MICRO GENERAL ORDERABL ES Performing Organization Address [facility] Code Phon e Number MISYS Neisseria gonorrhoeae PCR (04/19/2008 11:10 AM CDT) [facility] Method Time Signature Specimen Cervix MISYS Descrip N Gonorrhea Negative for N. MISYS PCR gonorrhoeae rRNA by client services analyst mediated amplification. Comment: A negative result by client services analyst medi ated amplification does not preclude the [...] MICRO GENERAL ORDERABL ES Performing Organization Address City/[facility]/ZIP Code Phon e Number MISYS HSV 1 [...]
--- OUTSIDE RECORDS SUMMARY | 2022-07-30 20:18 | XMS_ITS | Encounter Summary ---
:1945 Author Organization [place] Address [address] [facility] [place] [address] Care Team Providers Name Role Phone Unavailable Primary Care Provider Unavailable Encounter Details Date Type Department Care Team Description 04/19/2008 Office Visit-[facility] Women's Unknown, [facility] [place] [address] [place] [facility] [address] [address] [place], [place] [phone] Social History Tobacco Use Types Packs/Day Years Used Date Smoking Tobacco: Never Assessed Sex Assigned at Date Recorded Female 12/20/2018 4:10 PM CDT documented as of this encounter Progress Notes Unknown, Provider - 04/19/2008 9:30 AM CDT Employee Development Director: Demario Dudley Status: Final Encounter: 19 Apr [...] By: See Octavia RINALDI; 04/19/2008 9:54 AM EVAPORATIVE COOLER INSTALLER. documented in this encounter Plan of Treatment Upcoming Encounters Date Type Specialty Care Team Description 09/10/2022 Office Visit Internal Medicine Margot Branham MD [address] [place] [address] (Wo rk) documented as of this encounter Visit Diagnoses Not on filedocumented in this encounter
--- OUTSIDE RECORDS SUMMARY | 2022-07-30 20:18 | XMS_ITS | Encounter Summary ---
:1945 Author Organization [facility] Address [address] [place] [address] Care Team Providers Name Role Phone Unavailable Primary Care Provider Unavailable Encounter Details Date Type Department Care Team Description 04/05/2007 Historic Results Women's Health Lisseth Rocha Phillips-Wangensteen MD [address] 1st Floor, Clinic [address] [place] [phone] (Wo rk) Social History Tobacco Use Types Packs/Day Years Used Date Smoking Tobacco: Never Assessed Sex Assigned at Date Recorded Female 12/20/2018 4:10 PM CDT documented as of this encounter Plan of Treatment Upcoming Encounters Date Type Specialty Care Team Description 09/10/2022 Office Visit Internal Medicine Margot Branham MD [address] [place] [phone] (Wo rk) documented as of this encounter [...] LAB - BLOOD ORDERABLES Performing Organization Address [facility] Phon e Number MISYS CRP cardiac risk [...] LAB - BLOOD ORDERABLES Performing Organization Address [facility] Phon e Number MISYS Vitamin D deficiency screening (04/05/2007 11:00 AM CDT) P athologist Signature 25 [place] Vit D2 5 ug/L MISYS 25 [place] Vit D3 32 ug/L MISYS 25 [place] Vit D 37 30 - 75 MISYS total ug/L Comment: Season, race, dietary intake, and treatm ent affect the concentration of 15-qhxhpyr-Gcryrcr D. Values may decrea se during winter months and increase during summer months. Values less than 30 ug/L may indicate Vitamin D deficiency. Specimen Anatomical Collection Method Collection Time Receive d Time (Source) Location / / Volume Laterality 04/05/2007 11:00 04/05/2007 AM CDT 10:51 AM CDT Lisseth Vang MD LAB - BLOOD ORDERABLES Performing Organization Address [facility] Phon e Number MISYS documented in this encounter Visit Diagnoses Not on filedocumented in this encounter
--- OUTSIDE RECORDS SUMMARY | 2022-07-30 20:18 | XMS_ITS | Encounter Summary ---
:1945 Author Organization [facility] Address [address] [place] [address]. [place] [address] Care Team Providers Name Role Phone Unavailable Primary Care Provider Unavailable Encounter Details Date Type Department Care Team Description 05/21/2005 Results Only [facility] Bj Cox MD Hospital Results Social History Tobacco Use Types Packs/Day Years Used Date Smoking Tobacco: Never Assessed Sex Assigned at Date Recorded Female 12/20/2018 4:10 PM CDT documented as of this encounter Plan of Treatment Upcoming Encounters Date Type Specialty Care Team Description 09/10/2022 Office Visit Internal Medicine LogeaMargot man MD [address] [address] (Wo rk) documented as [...]
--- OUTSIDE RECORDS SUMMARY | 2022-07-30 20:18 | XMS_ITS | Encounter Summary ---
:1945 Author Organization [facility] Address [address] [place] [address]. [place] [address] Care Team Providers Name Role Phone Unavailable Primary Care Provider Unavailable Encounter Details Date Type Department Care Team Description 03/19/2008 Historic Results Physicians, Primary [place], Mehreen Butler, [facility] MD PhD 3rd Floor, Clinic 3A [address] [facility] [address] Social History Tobacco Use Types Packs/Day Years Used Date Smoking Tobacco: Never Assessed Sex Assigned at Date Recorded Female 12/20/2018 4:10 PM CDT documented as of this encounter Plan of Treatment Upcoming Encounters Date Type Specialty Care Team Description 09/10/2022 Office Visit Internal Medicine LogeaisMargot MD [address] [address] (Wo rk) documented as of [...] UA with microscopic (03/19/2008 4:45 PM CDT) [facility] Method Time Signature Source Midstream MISYS Urine Color Urine Yellow MISYS Appearance Urine Slightly MISYS Cloudy Glucose Urine Negative NEG mg/dL MISYS Bilirubin Urine Negative NEG MISYS Ketones Urine Negative NEG mg/dL MISYS Specific [place] 1.021 1.003 - MISYS Urine 1.035 Blood [...] MISYS Urine culture (03/19/2008 4:45 PM CDT) [facility] Method Time Signature Specimen Midstream Urine MISYS [...] MICRO GENERAL ORDERABL ES Performing Organization Address City/[facility] Code Phon e Number MISYS Genital culture (03/19/2008 4:31 PM CDT) [facility] Method Time Signature Specimen Vagina MISYS [...] MICRO GENERAL ORDERABL ES Performing Organization Address City/[facility] Code Phon e Number MISYS documented in this encounter Visit Diagnoses Not on filedocumented in this encounter
--- OUTSIDE RECORDS SUMMARY | 2022-07-30 20:18 | XMS_ITS | Encounter Summary ---
:1945 Author Organization [facility] Address [address] [place] [address] Care Team Providers Name Role Phone Unavailable Primary Care Provider Unavailable Encounter Details Date Type Department Care Team Description 04/04/2008 Historic Results Physicians, Primary [place], Mehreen Butler, [facility] MD PhD 3rd Floor, Clinic 3A [address] [place] [address] Social History Tobacco Use Types Packs/Day Years Used Date Smoking Tobacco: Never Assessed Sex Assigned at Date Recorded Female 12/20/2018 4:10 PM CDT documented as of this encounter Plan of Treatment Upcoming Encounters Date Type Specialty Care Team Description 09/10/2022 Office Visit Internal Medicine LogeaisMargot MD [address] [address] (Wo rk) documented as of this encounter Procedures Procedure Name Priority Date/Time Associated Comments Diagnosis ROUTINE UA WITH Routine 04/04/2008 9:10 AM Result s for this MICROSCOPIC CDT procedure are i n the results section. documented in this encounter Results (ABNORMAL) Routine UA with microscopic (04/04/2008 9:10 AM CDT) [facility] Method Time Signature Source Midstream MISYS Urine Color Urine Yellow MISYS Appearance Urine Slightly MISYS Cloudy Glucose Urine Negative NEG mg/dL MISYS Bilirubin Urine Negative NEG MISYS Ketones Urine Negative NEG mg/dL MISYS Specific [place] 1.017 1.003 - MISYS Urine 1.035 Blood [...]
--- OUTSIDE RECORDS SUMMARY | 2022-07-30 20:18 | XMS_ITS | Encounter Summary ---
:1945 Author Organization [facility] Address [address] [place] [address]. [place] [address] Care Team Providers Name Role Phone Unavailable Primary Care Provider Unavailable Encounter Details Date Type Department Care Team Description 03/19/2008 Office Visit-[facility] Women's Health Mehreen Green Phillips-Wangensteen MD PhD [address], [address] [phone] (Wo rk) [address] [phone] Social History Tobacco Use Types Packs/Day Years Used Date Smoking Tobacco: Never Assessed Sex Assigned at Date Recorded Female 12/20/2018 4:10 PM CDT documented as of this encounter Progress Notes Mehreen Johnston - 03/19/2008 2:20 PM CDT Mobile Equipment Operator: Mehreen Johnston Status: Final - Signature Encounter: 19 Mar 2008 Type: [facility] Visit [facility] Department of Family Medicine [place] Mail Code [address] [place] [address] Office: [phone] [facility] First Floor, Clinic [address] [place] [address] [place] [address] Phone:\[phone] Fax:\[phone] RE: Ramona Sheikh : 1945 MUSA: 03/19/2008 [...] back pain. No fever. She has tried utlb-nmf-sgilvak medicines for urinary discomfort and it has [...] middle-aged woman in no acute distress. Blood lgohteef559/70. Height 67 inches. Weight 176.8. BMI 27.7. [...] was in counseling. 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
--- OUTSIDE RECORDS SUMMARY | 2022-07-30 20:18 | XMS_ITS | Encounter Summary ---
:1945 Author Organization [facility] Address [address] [place] [address]. [place] [address] Care Team Providers Name Role Phone Unavailable Primary Care Provider Unavailable Encounter Details Date Type Department Care Team Description 04/04/2008 Office Visit-[facility] Women's Health Mehreen Green Phillips-Wangensteen MD PhD [address], [address] [phone] (Wo rk) [address] [phone] Social History Tobacco Use Types Packs/Day Years Used Date Smoking Tobacco: Never Assessed Sex Assigned at Date Recorded Female 12/20/2018 4:10 PM CDT documented as of this encounter Progress Notes Mehreen Johnston - 04/04/2008 9:00 AM CDT Truck Driver Rubbish Collector: Mehreen Johnston Status: Final - Signature Encounter: 04 Apr 2008 Type: [facility] Department of Family Medicine [place] Mail Code [address] [place] [address] Office: [phone] [facility] First Floor, Clinic [address] [place] [address] [place] [address] Phone:\[phone] Fax:\[phone] RE: Ramona Sheikh : 1945 MUSA: 04/04/2008 [...] day course of Septra. She was in [place]. She stated it helped but had some persistence of symptoms two or three days after she finished her antibiotics but now that has all resolved. She used some haai-isn-anoltsy Pyridium for that. She also has had [...] was in counseling. 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
--- OUTSIDE RECORDS SUMMARY | 2022-07-30 20:18 | XMS_ITS | Encounter Summary ---
:1945 Author Organization [facility] Address [address] [place] [address]. [place] [address] Care Team Providers Name Role Phone Unavailable Primary Care Provider Unavailable Encounter Details Date Type Department Care Team Description 04/04/2008 Office Visit-[facility] Gynecologic Cancer C enter Unknown, Provider [facility] 1st Floor, Clinic [address] [place], [place] [phone] Social History Tobacco Use Types Packs/Day Years Used Date Smoking Tobacco: Never Assessed Sex Assigned at Date Recorded Female 12/20/2018 4:10 PM CDT documented as of this encounter Progress Notes Unknown, Provider - 04/04/2008 9:00 AM CDT Talent Consultant: Caroline Meeks Status: Final Encounter: 04 Apr 2008 Type: [facility] Nurse Note Reason For Visit Vaginal [...] By: Caroline Meeks MA; 04/04/2008 8:48 AM LEARNING AND DEVELOPMENT DIRECTOR. documented in this encounter Plan of Treatment Upcoming Encounters Date Type Specialty Care Team Description 09/10/2022 Office Visit Internal Medicine Margot Branham MD [address] [place] [address] (Wo rk) documented as of this encounter Visit Diagnoses Not on filedocumented in this encounter
--- OUTSIDE RECORDS SUMMARY | 2022-07-30 20:24 | XMS_ITS | Encounter Summary ---
:1945 Author Organization [facility] Address [address] [place] [address] Care Team Providers Name Role Phone Lisseth Vang MD Primary Care Provider [phone] Reason for Visit Reason Comments Preop Exam Encounter Details Date Type Department Care Team Description 04/19/2017 Office Visit [facility] Nicolle Orlando PA-C Preop general physical exam (Primary Dx) ; Practice [address] [facility] Urge incontinence; [address] Urinary urgency; [place] [address] [place], [place] Weak urine stream [phone] (Wo rk) Social History Tobacco Use Types [...] if you would like to come and sheepskin pickler a copy. Thank you, Nicolle Orlando PA-C [...] 04/27/[address] Carlota Landeros at the [place] or ID. Pertinent history: Yamileth has a hx of [...] officinalis, (ADIN OR) Take by mouth. ??? Eulmcawybto-Ywbgxkkfz-Wwt C-Mn (GLUCOSAMINE CHONDROITIN COMPLX) Take by mouth. [...] day.03/19/2015: Received from: [facility] Received Sig: ??? [place]-3 Fatty Acids (SUPER OMEGA 3 EPA/DHA OR) Take by mouth. ??? perindopril (ACEON) 4 MG tablet Take 4 mg by mouth daily. ??? Psyllium (METAMUCIL OR) Take by mouth. ??? valACYclovir (AKA VALTREX) 1 G tablet Take 1,000 mg by mouth three times a day as needed. 03/19/2015: Received from: [facility] Received Sig: ??? valACYclovir (VALTREX) 1 G tablet Indications: PN: [facility] Dec 10, 2014 11:16 AM Received from: External Pharmacy ??? valACYclovir (VALTREX) 500 MG tablet Indications: PN: HARIS CHAVARRI[facility] Dec 10, 2014 11:16 AMReceived from: [...] QT 404 ms QTc 432 ms P [place] 46 degrees R [place] 33 degrees T [place] 56 degrees ECG: done today, normal sinus rhythm, no other signficant findings, no comparison made Assessment and Plan: Pre-op cardiac & risk evaluation: Patient is medically optimized for planned procedure. Cardiac risk for the planned procedure is INTERMEDIATE Cardiac risk factor assessment: heart disease history (PR, angina, CABG, coronary stent)? no History of [...] if you would like to come and sheepskin pickler a copy. Special risks: NONE Reference links: Beta-blockers, ICSI perioperative guideline Drugs to stop/continue, ICSI perioperative guideline General index, ICSI peroperative guideline Obstructive sleep apnea risk assessment Delirium risk assessment Preoperative cardiac evaluation algorithm from AHA Electronically Signed By: Nicolle Orlando PA-C 04/21/2017, 4:12 PM CC: documented in [...] UA Micro If (04/19/2017 9:28 AM CDT) [facility] Method Time Signature Urine Color Yellow [facility] [...] 04/19/2017 9:38 AM C DT Performed at [facility], [address] [place] [address] Nicolle Orlando PA-C LAB_1 Performing Organization Address City/State/ZIP Code Phon e Number [facility] [phone] ECG 12-LEAD ROUTINE (04/19/2017 8:59 AM CDT) P athologist Signature Ventricular Rate 69 BPM [facility] Atrial Rate 69 BPM [facility] P-R Interval 160 ms [facility] QRS Duration 100 ms [facility] QT 404 ms [facility] QTc 432 ms [facility] P [place] 46 degrees [facility] R [place] 33 degrees [facility] T [place] 56 degrees [facility] Specimen (Source) Anatomical Collection Method Collection Time Re ceived Time Location / / Volume Laterality 04/19/2017 8:59 AM CDT Narrative [facility] - 05/05/2017 2:34 PM CDT Sinus rhythm Normal ECG No previous ECGs available no acute findining Normal sinus rhythm Confirmed by MD MARINELLI ROBERT C ([id number]), fashion editor TY TAN ([id number]) on 05/05/2017 2:34:52 PM Procedure Note Merrill Marinelli MD - 05/05/2017Form atting of this note might be different from the original. Sinus rhythm Normal ECG No previous ECGs available no acute findining Normal sinus rhythm Confirmed by MD MARINELLI ROBERT C ([id number]), fashion editor TY TAN ([id number]) on 05/05/2017 2:34:52 PM Nicolle Orlando PA-C EKG Performing Organization Address City/[facility]/ZIP Code Phon e Number [facility] Urine Culture (04/19/2017 8:39 AM CDT) Component Value Ref Test Analysis Performed At [facility] Range Method Time Signature Specimen Urine Midstream [facility] Description LABORATORIES Special Unspecified [facility] Requests LABORATORIES Culture 10 to 50,000 [facility] col/ml Multiple LABORATORIES Bacterial Morphologies Report Status Final [facility] 04/20/2017 LABORATORIES Specimen Anatomical Collection Method Collection Time Receive d Time (Source) Location / / Volume Laterality 04/19/2017 8:39 AM 7 8:41 CDT AM CDT Narrative [facility] - 04/20/2017 4:24 AM C DT Performed at [facility] , [address] [place] [address] Nicolle Orlando PA-C LAB_1 Performing Organization Address City/[facility]/ZIP Code Phon e Number [facility] [phone] Creatinine / GFR (04/19/2017 8:39 AM CDT) [...] 04/19/2017 1:12 PM C DT Performed at [facility], [address] [place] [phone] Nicolle Orlando PA-C LAB_1 Performing Organization Address [facility] Phon e Number [facility] [phone] Potassium (04/19/2017 8:39 AM CDT) athologist Signature Potassium 4.1 3.5 - 5.1 [facility] mmol/L Specimen Anatomical Collection Method Collection Time Receive d Time (Source) Location / / Volume Laterality 04/19/2017 8:39 AM 7 8:40 CDT AM CDT Narrative [facility] - 04/19/2017 1:12 PM C DT Performed at [facility], [address] [place] [phone] Nicolle Orlando PA-C LAB_1 Performing Organization Address [facility] Phon e Number [facility] [phone] Sodium (04/19/2017 8:39 AM CDT) athologist Signature Sodium 141 136 - 145 [facility] mmol/L Specimen Anatomical Collection Method Collection Time Receive d Time (Source) Location / / Volume Laterality 04/19/2017 8:39 AM 7 8:40 CDT AM CDT Narrative [facility] - 04/19/2017 1:12 PM C DT Performed at [facility], [address] [place] [address] ??[id number] Nicolle Orlando PA-C LAB_1 Performing Organization Address City/State/ZIP Code Phon e Number [facility] [phone] HEMOGRAM/PLTS (04/19/2017 8:39 AM CDT) P athologist [...] 04/19/2017 1:37 PM C DT Performed at [facility], [address] [place] [id number] Nicolle Orlando PA-C LAB_1 Performing Organization Address City/[facility]/ZIP Code Phon e Number [facility] [phone] documented in this encounter Visit Diagnoses Diagnosis Preop general physical exam - Primary Other specified pre-operative examinatio n Urge incontinence Urinary urgency Urgency of urination Weak urine stream Slowing of urinary stream documented in this encounter Care Teams Skin Drier Relationship Specialty Start Date End Date Lisseth Vang MD PCP - General Family Practice 04/07/17 07/03/[address] [facility] [address] [place] [address] documented as of this encounter
--- OUTSIDE RECORDS SUMMARY | 2022-07-30 20:24 | XMS_ITS | Encounter Summary ---
:1945 Author Organization [facility] Address [address] [place] [address] Care Team Providers Name Role Phone Lisseth Vang MD Primary Care Provider [phone] Reason for Visit Reason Comments Preop Exam Encounter Details Date Type Department Care Team Description 04/12/2019 Pre-Op Visit Reed Pardo Pfefferchristopher, Pre-ope rative general physical examination (Primary Dx); Practice Sohan Moe MD Chronic right shoulder pain [address] [facility]. [address] [place] [address] [place], [place] [phone] [address] Social History Tobacco Use Types Packs/Day Years [...] on 05/03/[address] Trent Salazar at [facility]. Pertinent history: Significant right shoulder pain since [...] Insert 1 Each vaginally. 03/19/2015: Received from: [facility] ??? irbesartan (AVAPRO) 150 MG tablet Take [...] region documented in this encounter Care Teams Gin Feeder Relationship Specialty Start Date End Date Lisseth Vang MD PCP - General Family Practice 04/07/17 07/03/[address] [place], [place] [address] [address] [place] [address] documented as of this encounter
--- OUTSIDE RECORDS SUMMARY | 2022-07-30 20:24 | XMS_ITS | Encounter Summary ---
:1945 Author Organization [facility] Address [address], [place] [address] Care Team Providers Name Role Phone DianaeaMargot man MD Primary Care Provider Encounter Details Date Type Department Care Team Description 03/14/2015 Scanned History External to [facility] TRANSF ERRED RECORDS [facility] Social History Tobacco Use Types Packs/Day Years Used Date Smoking Tobacco: Never Assessed Sex Assigned at Date Recorded Not on file documented as of this encounter Plan of Treatment Not on filedocumented as of this encounter Visit Diagnoses Not on filedocumented in this encounter Care Teams Guest Services Director Relationship Specialty Start Date End Date Margot Branham MD PCP - General Internal Medicine 07/04/[address] [id number] documented as of this encounter
--- OUTSIDE RECORDS SUMMARY | 2022-07-30 20:24 | XMS_ITS | Encounter Summary ---
:1945 Author Organization [facility] Address [address] [place] [address] Care Team Providers Name Role Phone No Primary/Referring, Phy Primary Care Provider Unavailable Reason for Visit Reason Comments LAB TESTS, NOS Encounter Details Date Type Department Care Team Description 03/20/2015 Telephone [facility] Agustin, JUNIOR WILDER TS, NOS Practice EVELYNE Richards [address] [place], [place] [id number] [address] [place] [address] [place], [place] [address] (Wo rk) Social History Tobacco Use Types [...] on filedocumented in this encounter Care Teams Conversion Man Relationship Specialty Start Date End Date No Primary/Referring, Phy PCP - General 03/18/15 documented as of this encounter
--- OUTSIDE RECORDS SUMMARY | 2022-07-30 20:24 | XMS_ITS | Encounter Summary ---
:1945 Author Organization [facility] Address [address] [place] [address] Care Team Providers Name Role Phone No Primary/Referring, Phy Primary Care Provider Unavailable Reason for Visit Reason Comments PRE-OP EXAM Health Maintenance Communication did not discuss with pt Encounter Details Date Type Department Care Team Description 03/19/2015 Office Visit [facility], Preop g eneral physical exam (Primary Dx); Practice EVELYNE Richards Urinary incontinence, unspecified incont inence type [address] [facility]. [address] [place] [address] [place], [place] [phone] [address] Social History Tobacco Use Types Packs/Day Years Used Date Smoking Tobacco: Never Smokeless Tobacco: Never Alcohol Use Standard Drinks/Week Comments No 0 (1 standard drink = 0.6 oz pure alcoho l) Sex Assigned at Date Recorded Not on file documented as of this encounter Last Filed Vital Signs Vital Sign Reading Time Taken Comments Blood Pressure 148/81 03/19/2015 3:43 PM CDT Pulse 76 03/19/2015 3:43 PM CDT Temperature 37.9 ??C (100.2 ??F) 03/19/2015 3:29 PM CDT Respiratory Rate 16 03/19/2015 3:29 PM CDT Oxygen Saturation - - Inhaled Oxygen Concentration - - Weight 81.2 kg (179 lb) 03/19/2015 3:29 PM CDT Height 168.3 cm (5' 6.25) 03/19/2015 3:29 PM CDT Body Mass Index 28.67 03/19/2015 3:29 PM CDT documented in this encounter Patient Instructions Patient InstructionsSusie Velez MD - 03/19/2015 4:00 PM CDT Images from the original note were not included. Stop aspirin, fish oil and other supplements 1 week before surgery. How to Prepare for Surgery How do you prepare for surgery? Surgery can be stressful. This information will help you understand what you can expect. And it willhelp you safely prepare for surgery. Follow-up care is a burgos part of your treatment and safety. Be sure to make and go to all appointments, and call your doctor if you are having problems. It's also a good idea to know your test results and keep a list of the medicines you take. What happens before surgery? Preparing for surgery ?? Understand exactly what surgery is planned, along with the risks, benefits, and other options. ?? Tell your doctors ALL the medicines, vitamins, supplements, and herbal remedies you take. Some ofthese can increase the risk of bleeding or interact with anesthesia. ?? If you take blood thinners, such as warfarin (Coumadin), clopidogrel (Plavix), or aspirin, be sure to talk to your doctor. He or she will tell you if you should stop taking these medicines before your surgery. Make sure that you understand exactly what your doctor wants you to do. ?? Your doctor will tell you which medicines to take or stop before your surgery. You may need to stop taking certain medicines a week or more before surgery. So talk to your doctor as soon as you can. ?? If you have an advance directive, let your doctor know. It may include a living will and a durable power of deputy commonwealth's attorney for health care. Bring a copy to the hospital. If don't have one, you may want toprepare one. It lets your doctor and loved ones know your health care wishes. Doctors advise that everyone prepare these papers before any type of surgery or procedure. What happens on the day of surgery? ?? Follow the instructions about when to stop eating and drinking. If you don't, your surgery may becanceled. If your doctor told you to take your medicines on the day of surgery, take them with only a sip of water. ?? Take a bath or shower before coming in for your surgery. Do not apply lotions, perfumes, deodorants, or nail comoran. ?? Do not shave the surgical site yourself. ?? Take off all jewelry and piercings. And take out contact lenses, if you wear them. At the hospital or surgery center ?? Bring a picture ID. ?? The area for surgery is often marked to make sure there are no errors. ?? You will be kept comfortable and safe by your anesthesia provider. The anesthesia may make you sleep. Or it may just numb the area being worked on. Going home ?? Be sure you have someone to drive you home. Anesthesia and pain medicine make it unsafe for you to drive. ?? You will be given more specific instructions about recovering from your surgery. They will cover things like diet, wound care, follow-up care, driving, and getting back to your normal routine. When should you call your doctor? ?? You have questions or concerns. ?? You don't understand how to prepare for your surgery. ?? You become ill before the surgery (such as fever, flu, or a cold). ?? You need to reschedule or have changed your mind about having the surgery. Where can you learn more? Go to [employer] and enter Q270 in the search box. Current as of: June 12, 2014 Content Version: 10.3 ?? [id number] [employer]. documented in this encounter Progress Notes Susie Velez MD - 03/19/2015 3:34 PM CDT Pre-operative History and Physical Assessment Name: Yamileth Sheikh : 1945 Primary physician: No Primary/Referring. Historical: Yamileth Sheikh is a 69 yr old female is here for preoperative cardiac and risk evaluation. Patient is scheduled for Mid urethral sling and cystoscopy on 03/26/[address] Bruno at [facility]. Pertinent history: Patient has a history of urinary incontinence. She is scheduled for surgery on 03/26/2015. She is scheduled for mid urethral sling and cystoscopy. No history of fever, chills, URI symptoms or any other symptoms. No history of malignant hyperthermia. No bleeding or clotting problems. Preoperative Screening Questions: Any problems with / [...] problems for you or close relatives? YES Dad and sister. Dad and sister had blood clots. Herbal supplements or medications not on the med list being taken? Yes, [employer] Taking steroids or immunosuppressive medications. no Aspirin or NSAIDS taken in the last two weeks? YES baby aspirin Anemia or taking iron pills? no Anesthesia complications for you or close relatives? no History of sleep apnea, loud snoring, daytime [...] METS Medications: Current Outpatient Prescriptions Medication Sig ??? Ascorbic Acid (VITAMIN C) 250 MG tablet Take 250 mg by mouth. ??? azelastine (ASTELIN) 0.1 % nasal solution 1-2 Sprays by Nasal route. ??? B Complex Vitamins (VITAMIN B COMPLEX OR) Take 1 Tab by mouth. ??? Calcium Citrate-Vitamin D 200-125 MG-UNIT Take 2 Tabs by mouth. ??? cholecalciferol (VITAMIN D3) 1000 UNITS tablet Take 2 Tabs by mouth. ??? estradiol (ESTRACE VAGINAL) 0.1 MG/GM vaginal cream Insert 2 g vaginally. ??? ESTRADIOL VAGINAL (AKA ESTRING) 2 MG vaginal ring Insert 1 Each vaginally. ??? fluticasone (AKA FLONASE) 50 MCG/ACT nasal solution 2 Sprays by Nasal route. ??? Glucosamine-Chondroitin 500-400 MG Take 1 Tab by mouth two times a day. ??? hydrocortisone-pramoxine (AKA PROCTOFOAM-HC) 1-1 % rectal foam Insert 1 Applicator rectally. ??? ipratropium (AKA ATROVENT) 0.06 % nasal solution 2 Sprays by Nasal route. ??? Lysine 500 MG Take 1 Cap by mouth two times a day. ??? Magnesium 200 MG Take 4 Tabs by mouth. ??? Multiple Vitamin (MULTI VITAMIN DAILY OR) Take 1 Tab by mouth. ??? omega-3 fatty acids (AKA MAXEPA, FISH OIL) 1000 MG capsule Take 3 Caps by mouth two times a day. ??? valACYclovir (AKA VALTREX) 1 G tablet Take 1,000 mg by mouth three times a day as needed. Allergies: Codeine; Latex; Morphine; Nickel; Other; and Propofol There is no problem list on file for this patient. Habits: History Substance Use Topics ??? Smoking status: Never Smoker ??? Smokeless tobacco: Never Used ??? Alcohol Use: No No past surgical history on file. Observed: Vital Signs: BP 148/81 Pulse 76 Temp(Src) 100.2 ??F (37.9 ??C) (Tympanic) Resp 16 Ht 5' 6.25 (1.683 m) Wt 179 lb (81.194 kg) BMI 28.67 kg/m2 Estimated body mass index is 28.67 kg/(m^2) as calculated from the following: Height as of this encounter: 5' 6.25 (1.683 m). Weight as of this encounter: 179 lb (81.194 kg). General: ambulatory, well nourished, alert. HEENT: oropharynx is normal. Neck: Thyroid not enlarged. No bruits. No jugular venous distention Cardiovascular: regular rate and rhythm, normal S1 and S2 without murmur or click Chest/Lungs: clear to auscultation, no wheezes or rales Abdomen: Soft, non-tender, no masses, no hepatomegaly or splenomegaly. Extremities: No cyanosis, clubbing or edema. Pulses intact. Neurologic: Alert and oriented to person, place and time. Skin: No rash Data: Labs: pending ECG: done recently date 01/2015, normal sinus rhythm, no other signficant findings Assessment and Plan: Pre-op cardiac & risk evaluation: Patient is medically optimized for planned procedure. Cardiac risk for the planned procedure is INTERMEDIATE Cardiac risk factor assessment: heart disease history (DC, angina, CABG, coronary stent)? no History of [...] in patient instructions below. Special risks: NONE Reference links: Beta-blockers, ICSI perioperative guideline Drugs to stop/continue, ICSI perioperative guideline General index, ICSI peroperative guideline Obstructive sleep apnea risk assessment Delirium risk assessment Preoperative cardiac evaluation algorithm from [facility] CC: documented in this encounter Plan of Treatment Not on filedocumented as of this encounter Procedures Procedure Name Priority Date/Time Associated Diagnosis Comme nts BASIC METABOLIC Routine 03/19/2015 3:59 PM Preop general Resul ts for this PANEL CDT physical exam procedure are in the results section. COMPLETE BLOOD Routine 03/19/2015 3:59 PM Preop general Result s for this COUNT-NO DIFF CDT physical exam procedure are in the results section. documented in this encounter Results BASIC METABOLIC PANEL (03/19/2015 3:59 PM CDT) Analysis Performed At Patho logist Time Signature Sodium 141 135 - 145 [facility] Potassium 4.3 3.5 - 5.3 [facility] Chloride 104 95 - 106 [facility] CO2 29 22 - 30 [facility] Anion Gap 8 7 - 16 [facility] (calc.) mmol/L [facility] Glucose 110 70 - 180 [facility] mg/dl [facility] Calcium 9.2 8.4 - 10.2 [facility] mg/dl [facility] BUN 17 7 - 20 [facility] mg[facility] Creatinine 0.86 0.52 - [facility] 1.04 mg/dl [facility] GFR, Estimated >60 >60 [facility] ml/min/1.7 [facility] 3m2 GFR, Est., If >60 >60 [facility] Black ml/min/1.7 [facility] 3m2 Specimen Anatomical Collection Method Collection Time Receive d Time (Source) Location / / Volume Laterality 03/19/2015 3:59 PM 5 4:00 CDT PM CDT Narrative [facility] - 03/19/2015 6:56 PM C DT Performed at [facility], [address] [place] [address] ??[id number] Susie Velez [facility] Performing Organization Address [facility] Phon e Number [facility] [phone] HEMOGRAM/PLTS (03/19/2015 3:59 PM CDT) athologist Signature WBC 5.8 4.0 - 11.0 [facility] k/ul RBC 4.75 4.0 - 5.2 [facility] M/ul Hemoglobin 14.8 12.0 - 16.0 [facility] g/dl HCT 42.5 36.0 - 46.0 [facility] % MCV 89.5 80 - 100 fl [facility] MCH 31.2 26 - 34 pg [facility] MCHC 34.8 32 - 36 [facility] g/dl RDW 12.8 11.5 - 14.5 [facility] % Platelets 187 150 - 450 [facility] k/ul Specimen Anatomical Collection Method Collection Time Receive d Time (Source) Location / / Volume Laterality 03/19/2015 3:59 PM 5 4:00 CDT PM CDT Narrative [facility] - 03/19/2015 6:40 PM C DT Performed at [facility], [address] [place] [address] ??[id number] Susie [facility]_1 Performing Organization Address [facility] Phon e Number [facility] [phone] documented in this encounter Visit Diagnoses Diagnosis Preop general physical exam - Primary Other specified pre-operative examinatio n Urinary incontinence, unspecified incont inence type documented in this encounter Care Teams Belt Changer Relationship Specialty Start Date End Date No Primary/Referring, Phy PCP - General 03/18/15 documented as of this encounter
--- OUTSIDE RECORDS SUMMARY | 2022-07-30 20:24 | XMS_ITS | Encounter Summary ---
:1945 Author Organization [facility] Address [address] [place] [address] Care Team Providers Name Role Phone Lisseth Vang MD Primary Care Provider [phone] Reason for Visit Reason Comments SHOT,FLU Encounter Details Date Type Department Care Team Description 07/12/2019 Nursing Visit [facility] Kieran walton Encounter for immunization [address] (Primary Dx) [place] [address] Social History Tobacco Use Types Packs/Day Years [...] disease documented in this encounter Care Teams Teamsite Developer Relationship Specialty Start Date End Date Lisseth Vang MD PCP - General Family Practice 04/07/17 07/03/21 [address] [facility] [address] [place] [address] documented as of this encounter
--- OUTSIDE RECORDS SUMMARY | 2022-07-30 20:24 | XMS_ITS | Encounter Summary ---
:1945 Author Organization [facility] Address [address] [place] [address] Care Team Providers Name Role Phone Lisseth Vang MD Primary Care Provider [phone] Reason for Visit Reason Comments Preop Exam Encounter Details Date Type Department Care Team Description 04/21/2017 Telephone [facility] Nicolle Orlando PA-C Preop Exam Practice [address] [place], [place] [address] [place] [address] [phone] Social History Tobacco Use Types Packs/Day Years [...] notifying her a copy is at the front office associate Closing JULISSA Klein 04/21/2017, 5:06 PM Nicolle Orlando PA-C - 04/21/2017 4:10 PM CDT Please fax a copy of the completed PreOp visit (04/19/2017) and a copy of the EKG print-out to the [facility] Pre-Admission Nursing Department: FAX: [phone] Please also notify the patient that the clinic note is complete if she should like to pick and shovel man a copyof the note for her records. Patient's procedure is scheduled for: 04/27/2017 Thank you, Nicolle Orlando PA-C 04/21/2017, 4:11 PM documented in this encounter Plan of Treatment Not on filedocumented as of this encounter Visit Diagnoses Not on filedocumented in this encounter Care Teams Supervisor Color Making Relationship Specialty Start Date End Date Lisseth Vang MD PCP - General Family Practice 04/07/17 07/03/[address] [facility] [address] [place] [address] documented as of this encounter
--- OUTSIDE RECORDS SUMMARY | 2022-07-30 20:24 | XMS_ITS | Clinical Summary ---
:1945 Author Organization [facility] Address [address] [place] [address] Care Team Providers Name Role Phone Logeais, [...] for each transition of care or referral. 5minutes Allergies Active Allergy Reactions Severity Noted Date [...] or female climacteric states Overview: LW Onset: 86Alb77 ; Menopause Plantar fascial fibromatosis 11/23/2003 Overview: LW Onset: 70Eac42 ; Plantar Fasciitis Disease of nasal cavity and sinuses 11/23/2003 Overview: LW Onset: 64Rbl20 ; Rhinorrhea Lumbago 03/10/2003 Overview: Pain Low [...] IIV3 (Trivalent) Fluzone 07/12/2019 Highdose, 65+ Yrs (35424) Influenza, Unspecified Formulation 08/23/2002, 08/04/2001, 1 , [...] CDT Oxygen Saturation 98% 08/16/2014 5:40 PM BRAKE ENGINEER Inhaled Oxygen Concentration - - Weight 64 [...] T ype Group Dates [employer] [id number] 2015-Pres [phone] Medicare ADVANTAGE ent [id number] MEDICARE MEDICARE [id number] 2018-Pres [facility] care ent [employer] [id number] 2015-Pres Commercial SUPPLEMENT ent (Work) [phone] Yamileth Sheikh Personal/Famil Self 1945 [address]Home) [place] [phone] [place], [place] (Work) [phone] Yamileth Sheikh Personal/Famil Self 1945 [address] [place] [address] Care Teams Automotive Specialty Technician Relationship Specialty Start Date End Date Margot Branham MD PCP - General Internal Medicine 07/04/[address] [address]
--- OUTSIDE RECORDS SUMMARY | 2022-07-30 20:24 | XMS_ITS | Encounter Summary ---
:1945 Author Organization [facility] Address [address] [place] [address] Care Team Providers Name Role Phone Lisseth Vang MD Primary Care Provider [phone] Reason for Referral Consult/Transfer Care (Routine) - Closed Specialty Diagnoses / Procedures Referred By Contact Refer red To Contact Diagnoses Dystrophic nail Sohan Paredes, [facility] [address] [place] [address] [place] [address] Referral ID Status Reason Start Date Expiration Date Visits Requ ested Visits Authorized [id number] Closed 07/29/2018 01/25/2019 1 1 Scheduling Instructions This recommended service/s may not be co gene by your insurance coverage. To find out your specific benefit coverage, please c all the number on your insurance card. We suggest you call your health insurance c [facility] about your coverage and benefits for this appointment. Reason for Visit Reason Comments NAIL INFECTION pt would referral to [facility] jamesry EAR,RINGING pt states that she does not have Meniere's Disease. Ringing in both ears for about 20 yrs now Encounter Details Date Type Department Care Team Description 07/29/2018 Office Visit [facility] Paredes hic nail (Primary Dx); Practice Sohan Moe MD Tinnitus of both ears; [address] [facility] Bilateral hearing loss, unspecified hear ing loss type; [place] [address] [place], [place] Osteopenia, unspecified loca tion [phone] Social History Tobacco Use Types Packs/Day Years Used Date Smoking Tobacco: Never Smokeless Tobacco: Never Alcohol Use Standard Drinks/Week Comments Yes 0 (1 standard drink = 0.6 oz pure alcoho l) rare Sex Assigned at Date Recorded Not on file documented as of this encounter Last Filed Vital Signs Vital Sign Reading Time Taken Comments Blood Pressure 138/70 07/29/2018 1:11 PM CDT Pulse 62 07/29/2018 1:11 PM CDT Temperature - - Respiratory Rate - - Oxygen Saturation - - Inhaled Oxygen Concentration - - Weight 70.2 kg (154 lb 12.8 oz) 07/29/2018 1:11 PM CDT Height 167.6 cm (5' 6) 07/29/2018 1:11 PM CDT Body Mass Index 24.99 07/29/2018 1:11 PM CDT documented in this encounter Progress Notes Sohan Paredes MD - 07/29/2018 1:00 PM CDT SUBJECTIVE Yamileth Sheikh is a 72 y.o. old female who presents to clinic on 07/29/2018 with the following concerns: Chief Complaint Patient presents with ??? NAIL INFECTION pt would referral to [facility] ??? EAR,RINGING pt states that she does not have Meniere's Disease. Ringing in both ears for about 20 yrs now Yamileth notes discoloration to the right great toenail. This has been present for many years. She wouldlike to have it treated. She has had previous care at [facility] and would prefer to see a soils engineer there for this concern. She reports that she does not have Meniere's disease. This diagnosis had been recorded in her chart previously. She has long standing tinnitus of both ears and some hearing loss in both ears, but feelsstrongly that Meniere's disease was never diagnosed and is not her ongoing concern. Review of Systems See HPI for pertinent ROS I did review past medical, social, and family histories. OBJECTIVE Filed Vitals: 07/29/18 1311 BP: 138/70 Pulse: 62 Weight: 154 lb 12.8 oz (70.2 kg) Height: 5' 6 (1.676 m) Physical Exam: General Appearance: alert, well appearing and in no apparent distress Skin: discolored, dystrophic right first toenail with no surrounding erythema and no tenderness to palpation ASSESSMENT/PLAN Dystrophic nail Referral placed to [facility] as requested. - WAKONDA ORDER [[id number]] Tinnitus of both ears Bilateral hearing loss, unspecified hearing loss type Stable. Removed diagnosis of Meniere's Disease from her chart. Will continue to monitor. Osteopenia, unspecified location Had recent Dexa 04/2018 See patient instructions for additional details. Sohan Praedes MD 08/08/2018, 7:55 AM This note may have been generated with the aid of [employer] voice recognition software and may contain word substitution or spelling errors. WASHER documented in this encounter Plan of Treatment Scheduled Referrals Name Type Priority Associated Diagnoses Order S chedule WAKONDA ORDER [[id number]] Referral Routine Dystrophic nail Order ed: 07/29/2018 documented as of this encounter Visit Diagnoses Diagnosis Dystrophic nail - Primary Other specified disease of nail Tinnitus of both ears Unspecified tinnitus Bilateral hearing loss, unspecified hear ing loss type Osteopenia, unspecified location documented in this encounter Care Teams Copier Repair Technician Relationship Specialty Start Date End Date Lisseth Vang MD PCP - General Family Practice 04/07/17 07/03/21 [address] [facility] [address] [place] [address] documented as of this encounter
--- OUTSIDE RECORDS SUMMARY | 2022-07-30 20:24 | XMS_ITS | Encounter Summary ---
:1945 Author Organization [facility] Address [address], [place] [address] Care Team Providers Name Role Phone No Primary/Referring, Phy Primary Care Provider Unavailable Reason for Visit Reason Comments Elbow Pain Encounter Details Date Type Department Care Team Description 08/07/2016 Nurse Triage Careline Unknown, Physician Elbow Pain [address], [place] [address] [place] [address] [phone] (Wo rk) Social History Tobacco Use Types Packs/Day Years Used Date Smoking Tobacco: Never Smokeless Tobacco: Never Alcohol Use Standard Drinks/Week Comments No 0 (1 standard drink = 0.6 oz pure alcoho l) Sex Assigned at Date Recorded Not on file documented as of this encounter Nursing Notes Lovely Valdez RN - 08/07/2016 12:49 PM CDT Protocol: ELBOW [id number] Affirmative: [1] MODERATE pain (e.g., interferes with [...] clinic is the patient normally seen at? [facility]. Situation: Medical: Pt c/o pain in her elbow Plan:A nurse will return your call. If your symptoms change for the worse, please call us back [phone].. documented in this encounter Plan of Treatment Not on filedocumented as of this encounter Visit Diagnoses Not on filedocumented in this encounter Care Teams Rod Puller And Coiler Relationship Specialty Start Date End Date No Primary/Referring, Phy PCP - General 03/18/15 documented as of this encounter
--- OUTSIDE RECORDS SUMMARY | 2022-07-30 20:24 | XMS_ITS | Encounter Summary ---
:1945 Author Organization [facility] Address [address], [place] [address] Care Team Providers Name Role Phone Margot Branham MD Primary Care Provider Encounter Details Date Type Department Care Team Description 04/27/2017 Correspondence External to External, Provid er APPOINTMENT SCHEDULE [place] [address] Social History Tobacco Use Types Packs/Day Years [...] on filedocumented in this encounter Care Teams Chocolate Coater Relationship Specialty Start Date End Date Margot Branham MD PCP - General Internal Medicine 07/04/[address] [id number] documented as of this encounter
--- OUTSIDE RECORDS SUMMARY | 2022-07-30 20:25 | XMS_ITS | Encounter Summary ---
:1945 Author Organization [facility] Address [address], [place] [address] Care Team Providers Name Role Phone Titus Medina MD Primary Care Provider Encounter Details Date Type Department Care Team Description 11/27/2013 Orders Only HP Claims MD Jayashree Security Contact Bill [address] [place] [address] Mailstop [id number] [phone] (Wo rk) Social History Tobacco Use Types Packs/Day Years Used Date Smoking Tobacco: Never Assessed Sex Assigned at Date Recorded Not on file documented as of this encounter Plan of Treatment Not on filedocumented as of this encounter Visit Diagnoses Not on filedocumented in this encounter Care Teams Fur Dresser Relationship Specialty Start Date End Date Titus Medina MD PCP - General 09/16/1996 03/17/15 documented as of this encounter
--- OUTSIDE RECORDS SUMMARY | 2022-07-30 20:25 | XMS_ITS | Encounter Summary ---
:1945 Author Organization [facility] Address [address] [place] [address] Care Team Providers Name Role Phone Titus Medina MD Primary Care Provider Reason for Visit Reason Comments Knee Problem Encounter Details Date Type Department Care Team Description 04/23/2014 Office Visit [facility] Adi Jones Knee pain (Primary Therapy D, PT Dx) [address] [place], [place] [address] [phone] (Wo rk) Social History Tobacco Use Types Packs/Day Years Used Date Smoking Tobacco: Never Assessed Sex Assigned at Date Recorded Not on file documented as of this encounter Progress Notes Adi Jones, PT - 04/23/2014 10:57 AM CDT Encounter date: 04/23/2014 Pt : 1945 [facility] Physical Therapy Progress Note Initial Certification [...] each treatment session ADL's: Squat to pickling solution maker items from floor with minimal/no symptoms in 4 weeks. Negotiate stairs without dropping down onto L leg in 4 weeks Work: transfer stand to sit and sit to jewel bearing turner 4 weeks. Plan: DC PT. Therapeutic Exercises 62918 15 min Marlon Jones PT [id number] documented in this encounter Plan of Treatment Not on filedocumented as of this encounter Visit Diagnoses Diagnosis Knee pain - Primary Pain in joint, lower leg documented in this encounter Care Teams License Issuer Relationship Specialty Start Date End Date Titus Medina MD PCP - General 09/16/1996 03/17/15 documented as of this encounter
--- OUTSIDE RECORDS SUMMARY | 2022-07-30 20:25 | XMS_ITS | Encounter Summary ---
:1945 Author Organization [facility] Address [address] [place] [address] Care Team Providers Name Role Phone Titus Medina MD Primary Care Provider Reason for Visit Reason Comments Knee Pain or Injury Encounter Details Date Type Department Care Team Description 04/30/2011 Initial Consult [facility] John Jones er Knee pain, right Therapy D, PT (Primary Dx) [address] [place] [address] [phone] Social History Tobacco Use Types Packs/Day Years [...] 69% TREATMENT TODAY -Physical Therapy Evaluation (CPT 84753). An evaluation was performed. The patient was educated on the condition, planned therapy intervention and expectations from treatment. Goals were a collaborative effort of the therapist and patient. -Manual Therapy, 1 or more regions (CPT 20587) - 15 minutes: joint mobilization to the L hip with lateral distraction, posterior capsule glides. R knee patellar inferior glides and anterior capsular joint mobilization. -Therapeutic exercise (CPT 77733) - 10 minutes: Established home exercise program [...] Patient will be able to squat to tow picker items from floor with minimal to no symptoms in 1-2 weeks. Total treatment time: 45 minutes. Evaluation and Plan of Care completed by: Marlon Jones, PT, [id number] The retread operator is completed by the therapist and the physician electronic signature certifies medical necessity for the plan above. *SH~TRIA~KNEEEVAL ~ Shorthand Note completed on: 04/30/2011 4:31 PM documented in this encounter Plan of Treatment Not on filedocumented as of this encounter Visit Diagnoses Diagnosis Knee pain, right - Primary Pain in joint, lower leg documented in this encounter Care Teams Insurance Claims Supervisor Relationship Specialty Start Date End Date Titus Medina MD PCP - General 09/16/1996 03/17/15 documented as of this encounter
--- OUTSIDE RECORDS SUMMARY | 2022-07-30 20:25 | XMS_ITS | Encounter Summary ---
:1945 Author Organization [facility] Address [address] [address] Care Team Providers Name Role Phone Titus Medina MD Primary Care Provider Encounter Details Date Type Department Care Team Description 02/13/2009 Office Visit [facility] Physical Therap Sabi Blevins, PT [address] [place] [address] [place] [address] [phone] (Wo rk) Social History Tobacco Use Types [...] 1311 Note Time: 02/13/09 0001 Status: Signed Patient Sitter: Emmanuel Bernal PT (Physical Therapist) [facility] Orthopaedic [place] Referring Physician: MD Stephane Diagnosis: Left Right [...] (driving) to see her ill mother in [place]. Subjective: Pt states that her left hip felt very good after the US treatment. Right hip remained the same. Pt notes that her 200 mile trip was difficult with prolonged sitting. Pt's mother is dying from CA in [place]. Objective: US performed to the left hip. [...] Procedures: 20 minutes of Therapeutic Activities (CPT 41714) 15 minutes of Ultrasound (CPT 74533) Total treatment time: 35 minutes. Therapist: Sabi Espinosa, PT #[id number] *SH~TRIGage~PTBlank ~ Shorthand Note completed on: 02/13/2009 7:25 PM documented in this encounter Plan of Treatment Not on filedocumented as of this encounter Visit Diagnoses Not on filedocumented in this encounter Care Teams Clinical Support Associate Relationship Specialty Start Date End Date Titus Medina MD PCP - General 09/16/1996 03/17/15 documented as of this encounter
--- OUTSIDE RECORDS SUMMARY | 2022-07-30 20:25 | XMS_ITS | Encounter Summary ---
:1945 Author Organization [facility] Address [address] [place] [address] Care Team Providers Name Role Phone Titus Medina MD Primary Care Provider Reason for Visit Reason Onset Date Comments ERRONEOUS ENTRY 08/29/2011 Encounter Details Date Type Department Care Team Description 08/29/2011 Telephone Careline Екатерина Mazariegos RN ERRONEOUS ENTRY [address] [place], [place] [address] [phone] [place] [address] Social History Tobacco Use Types Packs/Day Years Used Date Smoking Tobacco: Never Assessed Sex Assigned at Date Recorded Not on file documented as of this encounter Nursing Notes Екатерина Mazariegos RN - 08/29/2011 6:02 PM CST Erroneous Entry T FURNACE HELPER documented in this encounter Plan of Treatment Not on filedocumented as of this encounter Visit Diagnoses Not on filedocumented in this encounter Care Teams Tank Car Reconditioner Relationship Specialty Start Date End Date Titus Medina MD PCP - General 09/16/1996 03/17/15 documented as of this encounter
--- OUTSIDE RECORDS SUMMARY | 2022-07-30 20:25 | XMS_ITS | Encounter Summary ---
:1945 Author Organization [facility] Address [address] [place] [address] Care Team Providers Name Role Phone Titus Medina MD Primary Care Provider Reason for Visit Reason Comments Knee Problem Encounter Details Date Type Department Care Team Description 01/16/2014 Office Visit [facility] Adi Jones Knee pain (Primary Therapy D, PT Dx) [address] [place], [place] [phone] (Wo rk) Social History Tobacco Use Types Packs/Day Years Used Date Smoking Tobacco: Never Assessed Sex Assigned at Date Recorded Not on file documented as of this encounter Progress Notes Adi Jones D, PT - 01/16/2014 7:50 AM CDT Encounter date: 01/16/2014 Pt : 1945 [facility] Physical Therapy Progress Note Initial Certification [...] following each treatment session ADL's: Squat to cloth picker items from floor with minimal/no symptoms in 4 weeks. Negotiate stairs without dropping down onto L leg in 4 weeks Work: transfer stand to sit and sit to trade show coordinator 4 weeks. Plan: Patient needs to continue to focus on strength, add lunges with support and step downs at next visit. Therapeutic Exercises 43488 15 min Manual therapy 50978 10 min Total tx time 25min Marlon Jones PT [id number] documented in this encounter Plan of Treatment Not on filedocumented as of this encounter Visit Diagnoses Diagnosis Knee pain - Primary Pain in joint, lower leg documented in this encounter Care Teams Laboratory Worker Relationship Specialty Start Date End Date Titus Medina MD PCP - General 09/16/1996 03/17/15 documented as of this encounter
--- OUTSIDE RECORDS SUMMARY | 2022-07-30 20:25 | XMS_ITS | Encounter Summary ---
:1945 Author Organization [facility] Address [address] [place] [address] Care Team Providers Name Role Phone Titus Medina MD Primary Care Provider Reason for Visit Reason Comments Knee Problem Encounter Details Date Type Department Care Team Description 02/13/2014 Office Visit [facility] Adi Jones Knee pain (Primary Therapy D, PT Dx) [address] [place], [place] [phone] (Wo rk) Social History Tobacco Use Types Packs/Day Years Used Date Smoking Tobacco: Never Assessed Sex Assigned at Date Recorded Not on file documented as of this encounter Progress Notes Adi Jones D, PT - 02/13/2014 8:03 AM CDT Encounter date: 02/13/2014 Pt : 1945 [facility] Physical Therapy Progress Note Initial Certification Period: 01/09/2014 to 02/08/14 Referring Provider: Pascual Parekr Referring Diagnosis: Knee pain Visit Diagnosis/ICD code: [...] following each treatment session ADL's: Squat to garbage pick up man items from floor with minimal/no symptoms in 4 weeks. Negotiate stairs without dropping down onto L leg in 4 weeks Work: transfer stand to sit and sit to frontend engineer 4 weeks. Plan: Follow up in 2 weeks, check lunge, stairs and walking pace around the ivan. Therapeutic Exercises 12236 15 min Manual therapy 26849 10 min Total tx time 25min Marlon Jones PT 6549 documented in this encounter Plan of Treatment Not on filedocumented as of this encounter Visit Diagnoses Diagnosis Knee pain - Primary Pain in joint, lower leg documented in this encounter Care Teams Chest Painting Leader Relationship Specialty Start Date End Date Titus Medina MD PCP - General 09/16/1996 03/17/15 documented as of this encounter
--- OUTSIDE RECORDS SUMMARY | 2022-07-30 20:25 | XMS_ITS | Encounter Summary ---
:1945 Author Organization [facility] Address [address] [place] [address] Care Team Providers Name Role Phone Titus Medina MD Primary Care Provider Reason for Visit Reason Comments Knee Problem Encounter Details Date Type Department Care Team Description 01/22/2014 Office Visit [facility] Adi Jones Knee pain (Primary Therapy D, PT Dx) [address] [place], [place] [phone] (Wo rk) Social History Tobacco Use Types Packs/Day Years Used Date Smoking Tobacco: Never Assessed Sex Assigned at Date Recorded Not on file documented as of this encounter Progress Notes Adi Jones D, PT - 01/22/2014 8:23 AM CDT Encounter date: 01/22/2014 Pt : 1945 [facility] Physical Therapy Progress Note [...] each treatment session ADL's: Squat to picking table worker items from floor with minimal/no symptoms in 4 weeks. Negotiate stairs without dropping down onto L leg in 4 weeks Work: transfer stand to sit and sit to reinforcing bar setter 4 weeks. Plan: Follow up after 2 weeks and check tolerance with L knee pain. Therapeutic Exercises 12229 15 min Manual therapy 21311 10 min Total tx time 25min Marlon Jones PT 6506\ documented in this encounter Plan of Treatment Not on filedocumented as of this encounter Visit Diagnoses Diagnosis Knee pain - Primary Pain in joint, lower leg documented in this encounter Care Teams Funeral Driver Relationship Specialty Start Date End Date Titus Medina MD PCP - General 09/16/1996 03/17/15 documented as of this encounter
--- OUTSIDE RECORDS SUMMARY | 2022-07-30 20:25 | XMS_ITS | Encounter Summary ---
:1945 Author Organization [facility] Address [address] [place] [address] Care Team Providers Name Role Phone Titus Medina MD Primary Care Provider Reason for Visit Reason Onset Date Comments VOMITING 08/24/2011 [facility] 08/24/2011 Encounter Details Date Type Department Care Team Description 08/24/2011 Telephone Careline Unknown, Physician VOMITING; [facility] 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 STAT SYMPTOMS: None per guideline Duration: I [...] is agreeable to plan Екатерина Mazariegos RN IGN LANGUAGE TEACHER Kendra Pruitt - 08/24/2011 8:18 PM CST Does the patient currently have [employer] insurance?Yes Which care system is the patient affiliated with?OTHER [facility] What would caller have done if the CareLine were not available?Make Appointment Situation:Pt states that she has vomiting and diarrhea. Plan:A nurse will call you back within the hour. If you have not received a callback, please call [phone] and state that you are waiting for a callback. IGN LANGUAGE TEACHER documented in this encounter Plan of Treatment Not on filedocumented as of this encounter Visit Diagnoses Not on filedocumented in this encounter Care Teams Cloth Napping Supervisor Relationship Specialty Start Date End Date Titus Medina MD PCP - General 09/16/1996 03/17/15 documented as of this encounter
--- OUTSIDE RECORDS SUMMARY | 2022-07-30 20:25 | XMS_ITS | Encounter Summary ---
:1945 Author Organization [facility] Address [address] [place] [address] Care Team Providers Name Role Phone Titus Medina MD Primary Care Provider Reason for Visit Reason Comments HYPERTENSION Back Pain Encounter Details Date Type Department Care Team Description 12/10/2014 Hospital Encounter [facility] 385 Elizabeth Trujillo , Abnormal result on screening urine test; Urgent Care MD Gonzalez [address] Vinita Beverley [address] [place] [address]. [facility] [address] [phone] Social History Tobacco Use Types Packs/Day Years [...] 0 12/10/2014 016 COMPUTERIndications: HARIS AMADOR SARA [facility] Dec 10, 20142014 11:20 AM Tumeric 11:20 AM Tumeric DRUG NOT IN Indications: PN: 0 12/10/2014 019 COMPUTERIndications: HARIS AMADOR SARA [facility] Dec 10, 20142014 11:20 AM Tumeric 11:20 AM Tumeric Estradiol (ESTRING VA) Place vaginally. 0 014 04/12/2019 Garlic 500 MG Take by mouth. 0 12/10/2014 019 Garlic TABS Take by mouth. 0 12/10/2014 6 ADIN OR Take by mouth. 0 12/10/2014 04/10/2016 Adin, Zingiber Take by mouth. 0 12/10/201404/03 officinalis, (ADIN OR) GLUCOSAMINE CHONDROITIN Take by mouth. 0 08/02/20 12 04/10/2016 COMPLX CAPS Mdvjrssvskm-Oyfmpnpso-Sln Take by mouth. 0 201104/12/2019 C-Mn (GLUCOSAMINE [...] 15 04/10/2016 mouth daily (every 24 hours). [place]-3 Fatty Acids (SUPER Take by mouth. 0 [...] 04/10/2016 tabletIndications: HARIS AMADOR SARA L Mon [facility] WedDec 10, 20142014 11:16 AM Received 11:16 AM Received from: External Pharmacy from: External Pharmacy valACYclovir (VALTREX) 1 G Indications: PN: 0 04/12/2019 tabletIndications: HARIS AMADOR SARA L Mon [facility] Dec 10, 20142014 11:16 AM Received 11:16 AM Received from: External Pharmacy from: External Pharmacy valACYclovir (VALTREX) 500 Indications: PN: 0 04/12/2019 MG tabletIndications: HARIS AMADOR SARA L Mon [facility] WedDec 10, 20142014 11:16 AM Received 11:16 AM Received from: External Pharmacy from: External Pharmacy documented as of this encounter ED Notes Elizabeth Trujillo MD - 12/10/2014 1:53 PM CDT ED Provider Notes signed by Elizabeth Trujillo MD at 12/12/14747 Author: Elizabeth Trujillo MD Service: (none) Author Type: Physician Filed: 12/12/14747 Note Time: 12/10/141556 Status: Signed Onion Topper: Elizabeth Trujillo MD (Physician) NAME: IMELDA GARCIA MR#: [id number] CSN: [id number] AUTHENTICATING CLINICIAN: Elizabeth Trujillo MD CONFIRM #: [id number] LOC: 420 URGENT CARE PROGRESS NOTE DATE OF VISIT: 12/10/2014 : 1945 Patient comes in today, having recently had some labs performed by her primary care provider at [facility]. She is concerned because her urinalysis showed [...] care neo hernandez TAL:JAIME C: CONFIRM #: [id number] documented in this encounter Miscellaneous Notes Medication [...] from the original note were not included. [facility] [address] [place] [address] U[facility]ENT [address] [place] [address] Dept: [phone] [email or web address] Imelda Ramona Kori 12/10/2014 11:39 AM Hospital Encounter Description: Female : 1945 Department: [place] [address] Urgent Care Dept Thank you for choosing [place] [address] [facility] for your health care visit with Elizabeth Trujillo MD. We are happy to care for you and provide this summary of your visit. Your primary clinical care coordinator is currently listed as Mehreen Johnston MD. HERE IS WHAT YOU NEED TO KNOW To learn how you can take steps to stay as healthy as you can be visit [email or web address] Discharge Instructions Back Stretches: Exercises Your Care [...] Where can you learn more? Go to [employer]/Humedicsrary and enter Y090 in the search box. Current as of: March 07, 2014 Content Version: 10.3 ?? 9621-7298 [employer]. HERE IS WHAT YOU NEED TO [...] Negative Neg - Trace mg/dL U Specific [place] 1.015 1.005 - 1.030 Urobilinogen Urine Negative [...] ORAL) (Taking) Take by mouth. GLUC/FAHEEM-MSM#1/VIT C/RADHIKA/BOR (CSCGWYGGIXG-UBXRN-QUV COMPLEX ORAL) (Taking) Take by mouth. Magnesium 200 mg Tab (Taking) Take 800 mg by mouth. multivitamin (THERAGRAN) tablet (Taking) Take 1 tablet by mouth daily (every 24 hours). Usfjl-0-CXE-EPA-Fish Oil 805-1,000 mg Cap (Taking) Take by [...] Ethnicity Preferred Language 1945 Female White Non- Angolan This document contains confidential information about your [...] - 12/10/2014 12:59 PM CDT Performed at [facility], [address] [place] [address] Elizabeth Trujillo MD LAB_1 Performing Organization Address City/State/ZIP Code Phon e Number HP CONVERSION URINALYSIS ROUTINE(MICRO IF POS) (12/10/2014 11:57 AM CDT) [facility] gist Method Time Signature Urine Type [...] U Specific 1.015 1.005 - HP CONVERSION [place] 1.030 Urobilinogen Negative Negative HP CONVERSION Urine Eu/dL Specimen Anatomical Collection Method Collection Time Receive d Time (Source) Location / / Volume Laterality Urine: 12/10/2014 11:57 12/10/2014 AM CDT 12:01 PM CDT Narrative HP CONVERSION - 12/10/2014 12:10 PM CDT Performed at [facility], [address] [place] [address] Elizabeth Trujillo MD LAB_1 Performing Organization Address City/State/ZIP Code Phon e Number HP CONVERSION documented in this encounter Visit Diagnoses Diagnosis Abnormal result on screening urine test Lumbago Triage Assessment Note - Haris Amador RN - 12/10/2014 11:14 AM CDT Pt states to elevated blood pressures since systolic between 170's and 180's. Pt was seen by her PCP at [facility] last Wednesday and is concerned by some of the abnormal results. Pt suspects that her PCP has not seen these result yet. documented in this encounter Care Teams Technical Expert Relationship Specialty Start Date End Date Titus Medina MD PCP - General 09/16/1996 03/17/15 documented as of this encounter
--- OUTSIDE RECORDS SUMMARY | 2022-07-30 20:25 | XMS_ITS | Encounter Summary ---
:1945 Author Organization [facility] Address [address] [place] [address] Care Team Providers Name Role Phone Titus Medina MD Primary Care Provider Encounter Details Date Type Department Care Team Description 03/30/2010 PN Conversion Only FOOD PRESERVATION SCIENTIST 3850 CONV Danish Arora [address] [place] [address] [address] [place] [address] (Wo rk) Social History Tobacco [...] on filedocumented in this encounter Care Teams Impregnation Operator Relationship Specialty Start Date End Date Titus Medina MD PCP - General 09/16/1996 03/17/15 (work) documented as of this encounter
--- OUTSIDE RECORDS SUMMARY | 2022-07-30 20:25 | XMS_ITS | Encounter Summary ---
:1945 Author Organization [facility] Address [address] [place] [address] Care Team Providers Name Role Phone Titus Medina MD Primary Care Provider Reason for Visit Reason Onset Date Comments QUESTIONS, GENERAL 11/28/2009 Encounter Details Date Type Department Care Team Description 11/28/2009 Telephone Careline Unknown, Physician QUESTIONS, GENERAL [address] [place], [place] [address] [place], [place] [phone] (Wo rk) Social History Tobacco Use Types Packs/Day Years Used Date Smoking Tobacco: Never Assessed Sex Assigned at Date Recorded Not on file documented as of this encounter Nursing Notes Rikki Carter - 11/28/2009 5:19 PM CST Plan: Suggested trying to soak it off. Try rubbing alcohol. Can try a medical sulvent, but this is expensive. She will try soaking the tape off. Rikki Carter RN GER STUDY Kendra Rossi - 11/28/2009 5:05 PM CST Does the patient currently have HP insurance?Yes Which care system is the patient affiliated with?OTHER Situation:Pt has adhesive bandage on that is used with medication she gets prescribed by a physical therapist. It has very sticky adhesive, and is meant to only be on for 4 hours, but she left on all day, wondering what she can use to loosen adhesive. A nurse will call you back within the next hour. If you have not heard from a nurse, please feel free to call us back at [phone] and state that you are waiting for a callback. GER STUDY documented in this encounter Plan of Treatment Not on filedocumented as of this encounter Visit Diagnoses Not on filedocumented in this encounter Care Teams Morals Squad Police Officer Relationship Specialty Start Date End Date Titus Medina MD PCP - General 09/16/1996 03/17/15 documented as of this encounter
--- OUTSIDE RECORDS SUMMARY | 2022-07-30 20:25 | XMS_ITS | Encounter Summary ---
:1945 Author Organization [facility] [employer] [facility] Address [address] [place] [address] Care Team Providers Name Role Phone Titus Medina MD Primary Care Provider Encounter Details Date Type Department Care Team Description 01/01/2014 Imaging [facility] Knee pain [address] [place], [place] [address] Social History Tobacco Use Types [...] leg documented in this encounter Care Teams C Programmer Relationship Specialty Start Date End Date Titus Medina MD PCP - General 09/16/1996 03/17/15 documented as of this encounter
--- OUTSIDE RECORDS SUMMARY | 2022-07-30 20:25 | XMS_ITS | Encounter Summary ---
:1945 Author Organization [facility] Address [address] [place] [address] Care Team Providers Name Role Phone Titus Medina MD Primary Care Provider Encounter Details Date Type Department Care Team Description 02/20/2009 Office Visit [facility] y Sabi Espinosa, PT [address] [place] [address] [place] [address] [address] [place] [address] [phone] (Wo rk) Social History Tobacco Use Types Packs/Day Years Used Date Smoking Tobacco: Never Assessed Sex Assigned at Date Recorded Not on file documented as of this encounter Progress Notes Sabi Espinosa PT - 02/20/2009 12:01 AM CDT Progress Notes signed by Sabi Espinosa PT at 05/08/09 6098 Author: Sabi Espinosa PT Service: (none) Author Type: Physical Therapist Filed: 01/24/11 1324 Note Time: 02/20/09 0001 Status: Signed Nut Steamer: Sabi Espinosa PT (Physical Therapist) Physical Therapy [...] (driving) to see her ill mother in [place]. Visit History Date of first Visit: 02/07/2009 [...] (none) Author Type: Physical Therapist Filed: 01/24/11 8596 Note Time: 02/20/09 0001 Status: Signed Nut Steamer: Emmanuel Bernal PT (Physical Therapist) [facility] Referring Physician: MD Stephane Diagnosis: [...] (driving) to see her ill mother in [place]. Subjective: Pt states that her left hipis doing really well, but right is hurting more now.. Pt notes that she is driving 200 mile trip again to be with her mother and will be there for 10 days. Pt's mother is dying from CA in [place]. Objective: US performed to the left hip. [...] Procedures: 25 minutes of Therapeutic Exercise (CPT 37440) 10 minutes of Ultrasound (CPT 68922) Total treatment time: 35 minutes. Therapist: Sabi Espinosa, PT #[id number] *KIKI~CHERYL~Caitlyn ~ Shorthand Note completed on: 02/21/2009 10:35 AM documented in this encounter Plan of Treatment Not on filedocumented as of this encounter Visit Diagnoses Not on filedocumented in this encounter Care Teams Dairy Specialist Relationship Specialty Start Date End Date Titus Medina MD PCP - General 09/16/1996 03/17/15 documented as of this encounter
--- OUTSIDE RECORDS SUMMARY | 2022-07-30 20:25 | XMS_ITS | Encounter Summary ---
:1945 Author Organization [facility] Address [address] [place] [address] Care Team Providers Name Role Phone Titus Medina MD Primary Care Provider Reason for Visit Reason Comments Knee Pain or Injury HIP PAIN Encounter Details Date Type Department Care Team Description 07/27/2011 Office Visit [facility] Adi Jones Knee pain, bilateral Therapy D, PT (Primary Dx) [address] [place], [place] [phone] (Wo rk) Social History Tobacco Use Types [...] any for of squatting or kneeling at yarsanism. Is frustrated that she can not rise [...] Goal: To be able to kneel in yarsanism, to rise without assistance from the floor, [...] R TREATMENT TODAY -Physical Therapy Evaluation (CPT 72853) -Manual Therapy, 1 or more regions (CPT 93035) - 15 minutes: high velocity low amplitude thrust manipulation to the L hip, joint mobilization to the L and R knee into flexion in supine, joint mobilization to the L hip posterior and lateral hip capsule. also joint mobilization into the R knee into extension with tibia on femur and femur on tibia. -Therapeutic exercise (CPT 80031) - 8 minutes: home exercise program discussed [...] Functional Outcomes: - Able to squat to slate picker items from floor with minimal to [...] of Care completed by: Marlon Jones, PT, 8564, 07/28/2011 The flatwork folder is completed by the therapist and the physician electronic signature certifies medical necessity for the plan above. *SH~REHAB~PTMSLE ~ Shorthand Note completed on: 07/28/2011 7:46 AM documented in this encounter Plan of Treatment Not on filedocumented as of this encounter Visit Diagnoses Diagnosis Knee pain, bilateral - Primary Pain in joint, lower leg documented in this encounter Care Teams Language Translator Relationship Specialty Start Date End Date Titus Medina MD PCP - General 09/16/1996 03/17/15 documented as of this encounter
--- OUTSIDE RECORDS SUMMARY | 2022-07-30 20:25 | XMS_ITS | Encounter Summary ---
:1945 Author Organization [facility] Address [address] [place] [address] Care Team Providers Name Role Phone Titus Medina MD Primary Care Provider Encounter Details Date Type Department Care Team Description 04/07/2011 Imaging P3930 RADIOLOGY [facility] No diagnosis 39[address] [place] [address] Social History Tobacco Use Types Packs/Day Years Used Date Smoking Tobacco: Never Assessed Sex Assigned at Date Recorded Not on file documented as of this encounter Plan of Treatment Not on filedocumented as of this encounter Procedures Procedure Name Priority Date/Time Associated Diagnosis Comme nts FOREIGN IMAGE(S) XR Routine 04/07/2011 12:00 AM No diagnosis R esults for this EXTREMITY CDT procedure are i n the results section. documented in this encounter Results Foreign Image(S) XR Extremity (04/07/2011 12:00 AM CDT) Anatomical Region Laterality Modality Other Specimen (Source) Anatomical Location Collection Method / Collectio n Time Received Time / Laterality Volume Narrative 01/01/2014 12:27 PM CDT These outside images have been uploaded into PACS. If the results were provided, they will be located on the Media tab in the patient's chart. Procedure Note Conversion, Imr - 08/20/2016Formatting o f this note might be different from the original. These outside images have been uploaded into PACS. If the results were provided, they will be located on the Media tab in the patient's chart. Pascual Parker MD RAD NON-REPORTABLES documented in this encounter Visit Diagnoses Diagnosis No diagnosis Other unknown and unspecified cause of m orbidity or mortality documented in this encounter Care Teams Systematic Theology Professor Relationship Specialty Start Date End Date Titus Medina MD PCP - General 09/16/1996 03/17/15 documented as of this encounter
--- OUTSIDE RECORDS SUMMARY | 2022-07-30 20:25 | XMS_ITS | Encounter Summary ---
:1945 Author Organization [employer] Address [address] [place] [address] Care Team Providers Name Role Phone Titus Medina MD Primary Care Provider Reason for Visit Reason Comments CONSULT Encounter Details Date Type Department Care Team Description 03/16/2012 Initial Consult [facility] 39[address] Jey Molina MD Aging (Primary Dx) Plastic Surgery [address] [place], [place] [address] [address] [place] [address] [phone] Social History Tobacco Use Types Packs/Day Years [...] status documented in this encounter Care Teams Electrical Fitter Relationship Specialty Start Date End Date Titus Medina MD PCP - General 09/16/1996 03/17/15 documented as of this encounter
--- OUTSIDE RECORDS SUMMARY | 2022-07-30 20:25 | XMS_ITS | Encounter Summary ---
:1945 Author Organization [email or web address] Address [address] [place] [address] Care Team Providers Name Role Phone Titus Medina MD Primary Care Provider Reason for Visit Reason Comments Hip Problem Encounter Details Date Type Department Care Team Description 09/03/2011 Office Visit [facility] Adi Jones Hip pain, left Therapy D, PT (Primary Dx) [address] [place], [place] [address] [phone] (Wo rk) Social History Tobacco Use Types [...] Patient will be able to squat to continuous pickling line pickler items from floor with minimal to no [...] any for of squatting or kneeling at zoroastrian. Is frustrated that she can not rise [...] Met goals. PLAN DC PT Therapeutic Exercises 14605 10 Manual therapy 42592 15 min Total tx time 25min Marlon Jones PT 6564' documented in this encounter Plan of Treatment Not on filedocumented as of this encounter Visit Diagnoses Diagnosis Hip pain, left - Primary Pain in joint, pelvic region and thigh documented in this encounter Care Teams Weir Fisherman Relationship Specialty Start Date End Date Titus Medina MD PCP - General 09/16/1996 03/17/15 documented as of this encounter
--- OUTSIDE RECORDS SUMMARY | 2022-07-30 20:25 | XMS_ITS | Encounter Summary ---
:1945 Author Organization [facility] Address [address] [place] [address] Care Team Providers Name Role Phone Titus Medina MD Primary Care Provider Encounter Details Date Type Department Care Team Description 04/23/2014 Notes/Orders [facility] Adi Jones, Therapy PT [address] [facility] [address] [place], [place] [address] [place] [address] [phone] (Wo rk) Social History Tobacco Use Types Packs/Day Years Used Date Smoking Tobacco: Never Assessed Sex Assigned at Date Recorded Not on file documented as of this encounter Progress Notes Adi Jones, PT - 08/21/2014 7:28 AM CST Encounter Date: 04/23/2014 Pt : 1945 [facility] Physical Therapy Discharge Summary Patient was evaluated [...] following each treatment session ADL's: Squat to picker and sorter load and unload items from floor with minimal/no symptoms in 4 weeks. Negotiate stairs without dropping down onto L leg in 4 weeks Work: transfer stand to sit and sit to foreign exchange student coordinator 4 weeks. Reason for Discharge: Patient has [...] filedocumented in this encounter Care Teams Graphics Programmer Relationship Specialty Start Date End Date Titus Medina MD PCP - General 09/16/1996 03/17/15 documented as of this encounter
--- OUTSIDE RECORDS SUMMARY | 2022-07-30 20:25 | XMS_ITS | Encounter Summary ---
:1945 Author Organization [facility] Address [address] [place] [address] Care Team Providers Name Role Phone Titus [...] 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 Enjoys walking but has been limited [...] following each treatment session ADL's: Squat to bulk picker items from floor with minimal/no symptoms in 4 weeks. Negotiate stairs without dropping down onto L leg in 4 weeks Work: transfer stand to sit and sit to guyline operator 4 weeks. Barriers to Goal Achievement or [...] to wt bearing and eccentric loading. The manager digital is completed by the therapist and the referring clinician's electronic signature certifies medical necessity for the plan above. 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
--- OUTSIDE RECORDS SUMMARY | 2022-07-30 20:25 | XMS_ITS | Encounter Summary ---
:1945 Author Organization [facility] Address [address], [place] [address] Care Team Providers Name Role Phone Titus Medina MD Primary Care Provider Reason for Visit Reason Comments Other Encounter Details Date Type Department Care Team Description 04/02/2010 Telephone [facility] 3850 [facility], Message Other [address] [place], [place] [address] Social History Tobacco Use Types Packs/Day Years Used Date Smoking Tobacco: Never Assessed Sex Assigned at Date Recorded Not on file documented as of this encounter Progress Notes Center, Message - 04/02/2010 11:20 AM CDT Phone Note filed by Purplle at 01/24/118 Author: Purplle Service: (none) Author Type: (none) Filed: 01/24/111127 Note Time: 04/02/101119 Status: Signed Dial Printer: Purplle (Resource) Lab/Radiology Results Caller Name/Relationship:Erick Greene Primary Coil Tester:none What test result is needed?Urine culture - pt still has urgency sx When and where was test done?03/30/10-FLEXIBLE MACHINING SYSTEM MACHINIST/Lab Who ordered the test?Dr Woods Emergency Medical Technician:Ramona Rod call back number:[phone] c Is it OK to leave a [...] primary provider or return to Urgent Care. Y PLAN SALES UNIT ADVISOR documented in this encounter Plan of Treatment Not on filedocumented as of this encounter Visit Diagnoses Not on filedocumented in this encounter Care Teams Plate Corrector Relationship Specialty Start Date End Date Titus Medina MD PCP - General 09/16/1996 03/17/15 documented as of this encounter
--- OUTSIDE RECORDS SUMMARY | 2022-07-30 20:25 | XMS_ITS | Encounter Summary ---
:1945 Author Organization [facility] Address [address] [place] [address] Care Team Providers Name Role Phone Titus Medina MD Primary Care Provider Encounter Details Date Type Department Care Team Description 06/13/2009 PN Conversion Only [facility] 3850 R adiology [address] [place], [place] [address] Social History Tobacco Use Types Packs/Day Years Used Date Smoking Tobacco: Never Assessed Sex Assigned at Date Recorded Not on file documented as of this encounter Plan of Treatment Not on filedocumented as of this encounter Visit Diagnoses Not on filedocumented in this encounter Care Teams Pullboat Engineer Relationship Specialty Start Date End Date Titus Medina MD PCP - General 09/16/1996 03/17/15 documented as of this encounter
--- OUTSIDE RECORDS SUMMARY | 2022-07-30 20:25 | XMS_ITS | Encounter Summary ---
:1945 Author Organization [facility] Address [address] [place] [address] Care Team Providers Name Role Phone Titus Medina MD Primary Care Provider Encounter Details Date Type Department Care Team Description 10/08/2010 PN Conversion Only [facility] 38[address] R ad[address] [place], [place] [id number] Social History Tobacco Use Types Packs/Day Years Used Date Smoking Tobacco: Never Assessed Sex Assigned at Date Recorded Not on file documented as of this encounter Plan of Treatment Not on filedocumented as of this encounter Procedures Procedure Name Priority Date/Time Associated Diagnosis Comme nts MM MAMMOGRAM Routine 10/08/2010 5:44 PM Results f or this SCREENING BILAT W FOILING MACHINE OPERATOR procedure are in CAD the results section. documented in this encounter Results MM Mammogram Screening Bilat W CAD (10/08/2010 5:44 PM FOILING MACHINE OPERATOR) Anatomical Region Laterality Modality Breast Bilateral Mammography Specimen (Source) Anatomical Location Collection Method / Collectio n Time Received Time / Laterality Volume Narrative 10/09/2010 11:19 AM FOILING MACHINE OPERATOR Comparison is made to films from 07/10/2009 [...] BJ Dictating RAJINDER FULLER RADIOLOGIST Procedure Note aRjinder Vora MD - 06/02/2016Forma tting of this [...] on filedocumented in this encounter Care Teams Underbaster Relationship Specialty Start Date End Date Titus Medina MD PCP - General 09/16/1996 03/17/15 documented as of this encounter
--- OUTSIDE RECORDS SUMMARY | 2022-07-30 20:25 | XMS_ITS | Encounter Summary ---
:1945 Author Organization [facility] Address [address] [place] [address] Care Team Providers Name Role Phone Titus Medina MD Primary Care Provider Reason for Visit Reason Comments Other Encounter Details Date Type Department Care Team Description 02/19/2009 Telephone [facility], Message Other [address] [place], [place] [address] Social History Tobacco Use Types Packs/Day Years Used Date Smoking Tobacco: Never Assessed Sex Assigned at Date Recorded Not on file documented as of this encounter [facility], Message - 02/19/2009 10:00 AM CDT Phone Note filed by [employer] at 01/23/11228 Author: [employer] Service: (none) Author Type: (none) Filed: 01/23/11228 Note Time: 02/19/09 1000 Status: Signed Television Journalist: [employer] (Resource) MESSAGE TO CARE TEAM NAME OF CALLER:Ramona Sheikh NAME OF CLINICIAN:Dr Margot Pavon MESSAGE: She had a colonoscopy done approximately 2 years ago and she would like the date and the name of the place that we referred her to , it was not a [facility]. Please leave this information on her message machine at home PHARMACY NAME: PHARMACY PHONE #: CITY: CALL BACK PHONE OR CELL PHONE:[phone], please leave detailed message BEST TIME TO CALL BACK:anytime IS IT OK TO LEAVE A CONFIDENTIAL MESSAGE ON THIS VOICEMAIL?yes *ECODE~PNMSG Created on 19Feb2009 10:00am by FABIAN JACKSON On 19Feb2009 10:58am ANAT TANG wrote: Left the requested information on her voicemail. Acknowledged by ANAT TANG on 10:58am DING KENNEL OR CATTERY OPERATOR documented in this encounter Plan of Treatment Not on filedocumented as of this encounter Visit Diagnoses Not on filedocumented in this encounter Care Teams Rn Private Duty Relationship Specialty Start Date End Date Titus Medina MD PCP - General 09/16/1996 03/17/15 documented as of this encounter
--- OUTSIDE RECORDS SUMMARY | 2022-07-30 20:25 | XMS_ITS | Encounter Summary ---
:1945 Author Organization [facility] Address [address] [place] [address] Care Team Providers Name Role Phone Titus Medina MD Primary Care Provider Encounter Details Date Type Department Care Team Description 03/30/2010 Office Visit [facility] 3850 Urgent Abelino Woods, Ken OLIVEROS [address] [place] [address] [place], [place] [phone] (Wo rk) Social History Tobacco Use Types [...] Service: (none) Author Type: Physician Filed: 01/24/11 9270 Note Time: 03/30/10 0001 Status: Signed Educational Technology Coordinator: Danish Woods MD (Physician) SUBJECTIVE: Patient is [...] on filedocumented in this encounter Care Teams Tool And Die Manager Relationship Specialty Start Date End Date Titus Medina MD PCP - General 09/16/1996 03/17/15 documented as of this encounter
--- OUTSIDE RECORDS SUMMARY | 2022-07-30 20:25 | XMS_ITS | Encounter Summary ---
:1945 Author Organization [facility] Address [address] [place] [address] Care Team Providers Name Role Phone Titus Medina MD Primary Care Provider Reason for Visit Reason Comments Cough CONGESTION, NASAL Pharyngitis Encounter Details Date Type Department Care Team Description 10/27/2012 Hospital Encounter [facility] 3850 Britney Barnett MD Acute sinusitis, unspecified; Urgent Care 3850 ISHPEMING Acute pharyngitis [address] [place] [facility]. [facility], [address] [place] [address] [phone] Social History Tobacco Use Types Packs/Day Years Used Date Smoking Tobacco: Never Assessed Sex Assigned at Date Recorded Not on file documented as of this encounter Last Filed Vital Signs Vital Sign Reading Time Taken Comments Blood Pressure 152/70 10/27/2012 7:43 PM [employer] [facility] Pulse 64 10/27/2012 7:38 PM [employer] Temperature 36.9 ??C (98.4 ??F) 10/27/2012 7:38 PM [employer] [facility] Respiratory Rate 18 10/27/2012 7:38 PM [employer] [facility] Oxygen Saturation 98% 10/27/2012 7:38 PM [employer] [facility] Inhaled Oxygen Concentration - - Weight - [...] mouth. 0 08/02/20 12 04/10/2016 COMPLX CAPS Cntxenpyond-Zjpclhuyx-Eoq Take by mouth. 0 201104/12/2019 C-Mn (GLUCOSAMINE CHONDROITIN COMPLX) Magnesium 200 MG Take 800 mg by 0 08/02/201204/03 mouth. Magnesium TABS Take 800 mg by 0 08/02/20122015 mouth. Boody-3 Fatty Acids (SUPER Take by mouth. 0 [...] repeat. 2 tablet 0 ??? GLUC/FAHEEM-MSM#1/VIT C/RADHIKA/BOR (ANSYJEPZKOA-SLOVG-IOW COMPLEX ORAL) Take by mouth. ??? Magnesium 200 mg Tab Take 800 mg by mouth. ??? Hbmxe-7-VYW-EPA-Fish Oil 805-1,000 mg Cap Take by mouth. [...] STREP GROUP A WAIVED Narrative: Performed at [facility], [address] [place] [address] N/O MICRO CULTURE STREP FOLLOW UP FROM [...] Date:-, End Date:-, Frequency:DAILY *No Administrations Recorded [employer] [facility] documented in this encounter Plan of Treatment Not on filedocumented as of this encounter Procedures Procedure Name Priority Date/Time Associated Diagnosis Comme nts GROUP A STREP STAT 10/27/2012 7:58 PM Acute pharyngitis Res ults for this ANTIGEN SCREEN [employer] [facility] procedure are in the results section. BETA STREP FOLLOWUP Routine 10/27/2012 7:55 PM Re sults for this [employer] procedure are i n the results section. documented in this encounter Results RAPID STREP GROUP A WAIVED (10/27/2012 7:58 PM [employer] [facility]) Analysis Performed At Patho logist Time Signature Strep A Negative Negative HP CONVERSION Antigen Strep A Source Throat: HP CONVERSION Specimen Anatomical Collection Method Collection Time Receive d Time (Source) Location / / Volume Laterality 10/27/2012 7:58 PM 3 7:59 [employer] [facility] PM [employer] [facility] Narrative HP CONVERSION - 10/27/2012 8:01 PM [employer] Performed at [facility], [facility] [place] [address] Bony Barnett MD LAB_1 Performing Organization Address City/[facility] Phon e Number HP CONVERSION Beta Strep Followup (10/27/2012 7:55 PM [employer] [facility]) [facility] Method Time Signature Strep Screen No beta HP CONVERSION hemolytic Strep Group A isolated. Specimen (Source) Anatomical Collection Method Collection Time Re ceived Time Location / / Volume Laterality Throat: 10/27/2012 7:55 PM [employer] [facility] Bony Barnett MD LAB_1 Performing Organization Address [facility] Phon e Number HP CONVERSION documented in this encounter Visit Diagnoses Diagnosis Acute sinusitis, unspecified Acute pharyngitis Triage Assessment Note - Stephy Quesada, RN - 10/27/2012 7:38 PM [employer] Cough and very sore throat, painful to move tongue, with green discharge from sinuses. Symptoms started with mild cold symptoms around 10/04/12. Sore throat started yesterday. Also states has lost rx for diflucan and would like another. [employer] documented in this encounter Care Teams Scenic Designer Relationship Specialty Start Date End Date Titus Medina MD PCP - General 09/16/1996 03/17/15 documented as of this encounter
--- OUTSIDE RECORDS SUMMARY | 2022-07-30 20:25 | XMS_ITS | Encounter Summary ---
:1945 Author Organization [facility] Address [address] [place] [address] Care Team Providers Name Role Phone Titus Medina MD Primary Care Provider Reason for Visit Reason Comments Hip Problem Encounter Details Date Type Department Care Team Description 08/11/2011 Office Visit [facility] Adi Jones Hip pain, left Therapy D, PT (Primary Dx) [address] [place], [place] [phone] (Wo rk) Social History Tobacco Use Types [...] any for of squatting or kneeling at worship. Is frustrated that she can not rise [...] pivoting and walking are fine. Therapeutic Exercises 94818 15 min Manual therapy 23185 15 min Total tx time 30min Marlon Jones PT 5744 documented in this encounter Plan of Treatment Not on filedocumented as of this encounter Visit Diagnoses Diagnosis Hip pain, left - Primary Pain in joint, pelvic region and thigh documented in this encounter Care Teams Heel Former Relationship Specialty Start Date End Date Titus Medina MD PCP - General 09/16/1996 03/17/15 documented as of this encounter
--- OUTSIDE RECORDS SUMMARY | 2022-07-30 20:25 | XMS_ITS | Encounter Summary ---
:1945 Author [facility] Address [address] [place] [address] Care Team Providers Name Role Phone Titus Medina MD Primary Care Provider Encounter Details Date Type Department Care Team Description 11/01/2008 Office Visit [facility] Adi Jones, Therapy PT [address] [place] [facility]. [address] [place], [place] [address] [place] [address] [phone] (Wo rk) Social History Tobacco Use Types [...] 01/24/11 1022 Note Time: 11/01/082014 Status: Signed Bellman Captain: Adi Jones PT (Resource) Physical Therapy Hip [...] with care plan. Physical Therapy Evaluation (CPT 15206) 15 minutes of Manual Therapy, 1 or more regions (CPT 81021) 15 minutes of Neuromuscular Re-education (CPT 43623) Total treatment time: 40 minutes. Therapist: Marlon Jones, PT, 0187 *SH~TRIA~HIPEVAL ~ Shorthand Note completed on: 11/01/2008 8:57 AM ER CONTORT OPERATOR documented in this encounter Plan of Treatment Not on filedocumented as of this encounter Visit Diagnoses Not on filedocumented in this encounter Care Teams Point Of Care Technician Relationship Specialty Start Date End Date Titus Medina MD PCP - General 09/16/1996 03/17/15 documented as of this encounter
--- OUTSIDE RECORDS SUMMARY | 2022-07-30 20:25 | XMS_ITS | Encounter Summary ---
:1945 Author Organization [facility] Address [address] [place] [address] Care Team Providers Name Role Phone Titus Medina MD Primary Care Provider Encounter Details Date Type Department Care Team Description 02/01/2011 PN Conversion Only [facility] [place] [facility] Margot Pavon MD [facility] [address] [place] [address] [place] [address] [phone] Social History Tobacco Use Types Packs/Day Years Used Date Smoking Tobacco: Never Assessed Sex Assigned at Date Recorded Not on file documented as of this encounter Plan of Treatment Not on filedocumented as of this encounter Visit Diagnoses Not on filedocumented in this encounter Care Teams Drying Frame Operator Relationship Specialty Start Date End Date Titus Medina MD PCP - General 09/16/1996 03/17/15 documented as of this encounter
--- OUTSIDE RECORDS SUMMARY | 2022-07-30 20:25 | XMS_ITS | Encounter Summary ---
:1945 Author Organization [facility] Address [address], [place] [address] Care Team Providers Name Role Phone Titus Medina MD Primary Care Provider Encounter Details Date Type Department Care Team Description 04/16/2010 Orders Only [facility] Claims MD Jayashree Security Contact Bill [address] [place] [address] Mailstop [id number] [phone] (Wo rk) Social History Tobacco Use Types Packs/Day Years Used Date Smoking Tobacco: Never Assessed Sex Assigned at Date Recorded Not on file documented as of this encounter Plan of Treatment Not on filedocumented as of this encounter Visit Diagnoses Not on filedocumented in this encounter Care Teams Surgical Resident Relationship Specialty Start Date End Date Titus Medina MD PCP - General 09/16/1996 03/17/15 documented as of this encounter
--- OUTSIDE RECORDS SUMMARY | 2022-07-30 20:25 | XMS_ITS | Encounter Summary ---
:1945 Author Organization [facility] Address [address] [place] [address] Care Team Providers Name Role Phone Titus Medina MD Primary Care Provider Encounter Details Date Type Department Care Team Description 03/30/2010 PN Conversion Only [facility] PSYCHOLOGIST [address] Elizabeth Trujillo MD [address] [place] [address] [place] [address] (Wo rk) Social History Tobacco [...] (ABNORMAL) URINE MICROSCOPIC (03/30/2010 8:59 AM CDT) [facility] gist Method Time Signature White Blood >100 (A) 0 - 4 HP CONVERSION Cells Urine /HPF Red Blood Cells 50-100 (A) 0 - 2 HP CONVERSION Urine /HPF Epithelial Few /HPF HP CONVERSION Cells Specimen (Source) Anatomical Collection Method Collection Time Re ceived Time Location / / Volume Laterality 03/30/2010 8:59 AM CDT Elizabeth Trujillo MD LAB_1 Performing Organization Address City/[facility]/ZIP Code Phon e Number HP CONVERSION (ABNORMAL) URINALYSIS ROUTINE(MICRO IF POS) (03/30/2010 8:59 AM CDT) [facility] gist Method Time Signature Urine Type [...] U Specific 1.025 1.005 - HP CONVERSION [place] 1.030 Urobilinogen Negative Negative HP CONVERSION Urine Eu/dL Specimen (Source) Anatomical Collection Method Collection Time Re ceived Time Location / / Volume Laterality 03/30/2010 8:59 AM CDT Elizabeth Trujillo MD LAB_1 Performing Organization Address City/[facility]/ZIP [facility] Phon e Number HP CONVERSION documented in this encounter Visit Diagnoses Not on filedocumented in this encounter Care Teams Correctional Case Records Supervisor Relationship Specialty Start Date End Date Titus Medina MD PCP - General 09/16/1996 03/17/15 documented as of this encounter
--- OUTSIDE RECORDS SUMMARY | 2022-07-30 20:25 | XMS_ITS | Encounter Summary ---
:1945 Author Organization [facility] Address [address] [place] [address] Care Team Providers Name Role Phone Titus Medina MD Primary Care Provider Encounter Details Date Type Department Care Team Description 10/26/2008 Office Visit [place] [facility] Adi Jones, Therapy PT 2000 [facility]. [address] [place], [place] [address] [place] [address] [phone] (Wo rk) Social History Tobacco Use Types Packs/Day Years Used Date Smoking Tobacco: Never Assessed Sex Assigned at Date Recorded Not on file documented as of this encounter Progress Notes Adi Jones PT - 10/26/2008 12:01 AM CST Progress Notes signed by Adi Jones PT at 10/26/08 0801 Author: Adi Jones PT Service: (none) Author Type: Physical Therapist Filed: 01/24/11 1013 Note Time: 10/26/08 0001 Status: Signed Energy Director: Adi Jones PT (Resource) Physical Therapy Lumbar Spine Evaluation Referring Physician: Kira Ruiz Referring Diagnosis: LBP Orders: Evaluate and treat. Onset Date: 09/26/2008 History of Onset: Patient was shoveling in Dec and felt increased pain afterward which has not gone away for one month. SUBJECTIVE: Pain Details: Pain location: Right lumbar. Right SI. Right buttock. Additional Symptoms: None. Sleep interruption: Symptoms interrupt normal sleep pattern. Pain quality: Aching. Aggravating factors: Sit to stand. Sitting. Twisting. Relieving factors: Walking. Oswestry Score: 48 Previous treatment for these symptoms: None. Past Medical History: Past medical history pertinent to therapy: Patient has a R [place] in Past Year: No. Patient's Therapy Goal: Resume previous level of activity symptom free. 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 OBJECTIVE: General: Mood, orientation, and behavior were appropriate. Patient was alert and oriented. Posture/Alignment: Lumbar lordosis decreased. Lumbar Exam: Lumbar Exam - Standing: -ROM: Pain with EROM flexion, extension limited by 25% with pain. Pain with sidebending R and L on R side. -March Test: Positive right. % Lumbar Exam - Seated: -ROM: Decreased trunk rotation R in upper L spine. ( Lumbar Exam - Supine: Not tested. ) Lumbar Exam - Prone: Limited soft tissue [...] awakening due to symptoms in 2 weeks. - Able to sit with minimal to no symptoms (Computer/school work x 60 min.) in 4 weeks. -Able to transition sit to stand with normal positioning and weight bearing in 2 weeks. TREATMENT TODAY -Evaluation. -Manual therapy: Long axis traction to R hip. HVLT to R SIJ x 1. Functional mobilization to R paraspinals with leg slides in supine x 10. Functional mobilization to L 5 into extension R and L sides. -Therapeutic exercises - Patient was provided with the following educational and exercise handouts: Prone on elbows stretch x 10, HEP established with arm/leg alt x 20, cat/camel and bridges x 20. Response to treatment: Decreased pain following session. Increased ROM following sessions. Demonstrates understanding of home exercise program. Plan for next treatment: Focus on mobility, check sitting and sleeping tolerance. Also sit to stand. Expect quick and full recovery. Procedures: Physical Therapy Evaluation (CPT 63408) Therapeutic Exercise (CPT 56782) 10 minutes Manual Therapy, 1 or more regions (CPT 78780) 15 minutes TOTAL TREATMENT TIME: 40 minutes. Electronically signed by: Marlon Jones PT, 6564, 10/26/2008 Shorthand Note completed on: 10/26/2008 8:01 AM *SH~REHAB~PTLUMBAR ~ Shorthand Note completed on: 10/26/2008 8:01 AM ETIC COORDINATOR Gómez Ruiz MD - 10/26/2008 12:01 AM CST Progress Notes signed by Yas Starr MD at 11/21/08 1554 Author: Yas Starr MD Service: (none) Author Type: Physician Filed: 01/24/11 1013 Note Time: 10/26/08 0001 Status: Signed Energy Director: Yas Starr MD (Physician) Physical Therapy Plan of Care: Certification/HCFA 700. Initial Certification Period: , 11/26/2008 to 12/25/08 Initial Status: Physical Therapy Plan of Care: Certification/HCFA 700. Initial Certification Period: , 11/26/2008 to 12/25/08 Initial Status: Physical Therapy Lumbar Spine Evaluation Referring Physician: Kira Ruiz Referring Diagnosis: LBP Orders: Evaluate and treat. Onset Date: 09/26/2008 ASSESSMENT: Therapist Impression: Clinical findings consistent with [...] awakening due to symptoms in 2 weeks. - Able to sit with minimal to no symptoms (Computer/school work x 60 min.) in 4 weeks. -Able to transition sit to stand with normal positioning and weight bearing in 2 weeks. . . The physician electronic signature certifies the medical necessity for this plan of care while under his/her care. Therapist Signature: Marlon Jones, PT, [id number], 10/26/2008 *SH~REHAB~POC ~ Shorthand Note completed on: 10/26/2008 8:12 AM ETIC COORDINATOR documented in this encounter Plan of Treatment Not on filedocumented as of this encounter Visit Diagnoses Not on filedocumented in this encounter Care Teams Metal Caster Relationship Specialty Start Date End Date Titus Medina MD PCP - General 09/16/1996 03/17/15 documented as of this encounter
--- OUTSIDE RECORDS SUMMARY | 2022-07-30 20:25 | XMS_ITS | Encounter Summary ---
:1945 Author Organization [facility] Address [address] [place] [address] Care Team Providers Name Role Phone Titus Medina MD Primary Care Provider Reason for Visit Reason Comments Sinus Problem Cough Encounter Details Date Type Department Care Team Description 08/16/2014 Hospital Encounter [facility] [address] Merrill Mcknight Cough (Primary Dx); Urgent Care MD Sree Acute sinusitis, unspecified; [address] Lowery [address] [place] Fever pre senting with conditions classified elsewhere; [address] Claudio Acute pharyngitis [facility] [address] [phone] Social History Tobacco Use Types Packs/Day Years Used Date Smoking Tobacco: Never Assessed Sex Assigned at Date Recorded Not on file documented as of this encounter Last Filed Vital Signs Vital Sign Reading Time Taken Comments Blood Pressure 141/83 08/16/2014 5:40 PM FACILITIES MAINTENANCE ENGINEER Pulse 67 08/16/2014 5:40 PM FACILITIES MAINTENANCE ENGINEER Temperature 36.9 ??C (98.4 ??F) 08/16/2014 5:40 PM FACILITIES MAINTENANCE ENGINEER Respiratory Rate 16 08/16/2014 5:40 PM FACILITIES MAINTENANCE ENGINEER Oxygen Saturation 98% 08/16/2014 5:40 PM FACILITIES MAINTENANCE ENGINEER Inhaled Oxygen Concentration - - Weight - - Height - - Body Mass Index - - documented in this encounter Medications at Time of Discharge Medication Sig Dispensed Refills Start Date End Date amoxicillin (aka AMOXIL) Take 2 capsules by 40 capsule 0 08/26/2014 capsule mouth 2 times daily for 10 days. use with probiotics. ESTRADIOL VAGINAL (aka Indications: PN: 0 014 12/10/2014 ESTRING) RINGIndications: HARIS CHAVARRIA SARA L Mon Mar WedDec 10, 20142014 11:16 AM Received 11:16 AM Received from: External Pharmacy from: External Pharmacy azelastine (AKA ASTELIN) Place 1 spray into [...] DILAUDID OR None Entered 0 10/31/2007 04/12/2019 Estradiol (ESTRING VA) Place vaginally. 0 014 04/12/2019 GLUCOSAMINE CHONDROITIN Take by mouth. 0 08/02/20 12 04/10/2016 COMPLX CAPS Qhuictxausi-Heyawhctu-Wed Take by mouth. 0 201104/12/2019 C-Mn (GLUCOSAMINE CHONDROITIN COMPLX) hydrocortisone-pramoxine Indications: PN: 0 11/2804/10/2016 (aka PROCTOFOAM-HC) 1-1 % HARIS CHAVARRIA rectal foam WedDec 10, 2014 FOAMIndications: 11:16 AM Received HARIS CHAVARRIA from: External 2014 11:16 AM Received Pharmacy from: External Pharmacy hydrocortisone-pramoxine Indications: PN: 0 11/2804/12/2019 (PROCTOFOAM-HC) 1-1 % HARIS CHAVARRIA rectal foamIndications: WedDec 10, 2014 HARIS CHAVARRIA Wed 11:16 AM Received 2014 11:16 AM Received from: External from: External Pharmacy Pharmacy Magnesium 200 MG Take 800 mg by 0 08/02/201204/03 mouth. Magnesium TABS Take 800 mg by 0 08/02/20122015 mouth. Winston-3 Fatty Acids (SUPER Take by mouth. 0 08/0204/12/2019 OMEGA 3 EPA/DHA OR) SUPER OMEGA 3 EPA/DHA OR Take by mouth. 0 012 04/10/2016 valACYclovir (aka VALTREX) Indications: PN: 0 04/10/2016 tabletIndications: HARIS CHAVARRIA SARA L [facility] WedDec 10, 20142014 11:16 AM Received 11:16 AM Received from: External Pharmacy from: External Pharmacy valACYclovir (aka VALTREX) Indications: PN: 0 04/10/2016 tabletIndications: HARIS CHAVARRIA SCHEHARIS ISRAEL [facility] WedDec 10, 20142014 11:16 AM Received 11:16 AM Received from: External Pharmacy from: External Pharmacy valACYclovir (VALTREX) 1 G Indications: PN: 0 04/12/2019 tabletIndications: HARIS CHAVARRIA SARA L [facility] WedDec 10, 20142014 11:16 AM Received 11:16 AM Received from: External Pharmacy from: External Pharmacy valACYclovir (VALTREX) 500 Indications: PN: 0 04/12/2019 MG tabletIndications: HARIS CHAVARRIA SARA L [facility] WedDec 10, 20142014 11:16 AM Received 11:16 AM Received from: External Pharmacy from: External Pharmacy documented as of this encounter ED Notes Merrill Mcknight MD - 08/22/2014 2:48 PM CST ED Provider Notes signed by Merrill Mcknight MD at 08/27/14 4112 Author: Merrill Mcknight MD Service: (none) Author Type: Physician Filed: 08/27/141928 Note Time: 08/22/14 1552 Status: Signed Tank Officer: Merrill Mcknight MD (Physician) NAME: IMELDA GARCIA MR#: [id number] CSN: [id number] AUTHENTICATING CLINICIAN: Merrill Mcknight MD CONFIRM #: [id number] LOC: 420 URGENT CARE PROGRESS NOTE DATE OF VISIT: 08/16/2014 : 1945 CHIEF COMPLAINT: Cough, fever, sinus problem. HISTORY OF PRESENT ILLNESS: A 69-year-old patient presents with acute respiratory illness. She has been sick for about 2 weeks with a URI. Now has progressively worsening symptoms over the last 3 or 4 days, with fever, chills, productive cough, discolored mucus, along with facial pain, maxillary, left more than right, with purulent drainage. No wheezing. No history of underlying asthma. Does have seasonal allergies. No recent travel. Unsure if people have been sick around her. No other acute complaints. PAST MEDICAL HISTORY: Chronic problems, updated and reviewed in [employer] [facility] [employer]. SOCIAL AND FAMILY HISTORY: Updated and reviewed in [employer]. MEDICATIONS: Updated and reviewed in [employer] [facility] [employer]. ALLERGIES: Updated and reviewed in [employer]. REVIEW OF SYSTEMS: Otherwise completely negative. OBJECTIVE: VITAL SIGNS: Temperature 98.4. Pulse 67. Respirations 16. BP 141/83. Oximeter OX 98%. Pleasant female in no acute distress. HEENT: Head normal. TMs clear. Nose congested. tender Maxillary sinuses, left more than right, with upper teeth pain and purulent drainage. Throat clear. NECK: No nodes or meningeal signs. LUNGS: Coarse sounds but no rales or wheezes. IMPRESSION: 1. Cough. 2. Possible sinusitis. 3. Pharyngitis. 4. Fever. PLAN: Initially viral but with symptoms worsening, concern about sinusitis. Will give Aoxicillin 500, 1 g b.i.d. for 10 days. Diflucan p.r.n. If she could, use probiotics and recheck p.r.n. RWPayal:JAIME C: CONFIRM #: [id number] LITIES MAINTENANCE ENGINEER documented in this encounter Miscellaneous Notes Medication History - Jose Obando MD - 08/16/2014 6:45 PM CST INPATIENT MEDS Encounter Date: 08/16/14 fluconazole (DIFLUCAN) 150 mg tablet Start Date:08/16/14, End Date:08/16/14, Frequency:ONCE *No Administrations Recorded fluconazole (DIFLUCAN) 150 mg tablet Start Date:08/16/14, End Date:08/16/14, Frequency:ONCE *No Administrations Recorded amoxicillin (AMOXIL) 500 mg capsule Start Date:08/16/14, End Date:08/26/14, Frequency:2 TIMES DAILY *No Administrations Recorded LITIES MAINTENANCE ENGINEER ED AVS Snapshot - Jose Obando MD - 08/16/2014 6:45 PM CST Images from the original note were not included. [facility] [address] [place] [address] [address] [place] [address] Dept: [phone] [email or web address] Imelda Devline Kori 08/16/2014 6:07 PM Hospital Encounter Description: Female : 1945 Department: [place] [address] Urgent Care Dept Thank you for choosing [place] [address] URGENT CARE for your health care visit with Merrill Mcknight MD. We are happy to care for you and provide this summary of your visit. Your primary rn patient care is currently listed as Mehreen Johnston MD. HERE IS WHAT YOU NEED TO KNOW To learn how you can take steps to stay as healthy as you can be visit [email or web address] HERE IS WHAT YOU NEED TO DO Call your clinic if you develop new or worsening symptoms or if you have questions about your visit or medications. HERE IS INFORMATION FROM TODAY'S VISIT Reason for Visit Sinus Problem Cough Reason for Visit History If you had any tests, you will be notified of your abnormal results by your clinic. Medications administered today None MEDICATIONS As of today's visit, these are your current medications Medication DOSAGE amoxicillin (AMOXIL) 500 mg capsule Take 2 capsules by mouth 2 times daily for 10 days. use with probiotics. azelastine (ASTELIN) [address] 1 spray into each nostril 2 times daily. Use in eachnostril as directed b complex-vitamin c-folic acid (NEPHROCAPS) 1 mg capsule Take 1 capsule by mouth daily (every 24 hours). Calcium Carbonate-Vitamin D3 600mg (1,000mg) -1,000 unit Tab Take 1,200 mg by mouth. Cholecalciferol, Vitamin D3, 2,000 unit Cap Take by mouth. ESTRADIOL (ESTRING VAGL) Place vaginally. fluconazole (DIFLUCAN) 150 mg tablet Take 1 tablet by mouth once for 1 dose. may repeat in 5-7 days GLUC/FAHEEM-MSM#1/VIT C/RADHIKA/BOR (OLJIIJGPMPZ-NZOXR-PVL COMPLEX ORAL) Take by mouth. Magnesium 200 mg Tab Take 800 mg by mouth. Rjwal-5-DTB-EPA-Fish Oil 805-1,000 mg Cap Take by mouth. Vital signs from your visit Your Vitals Were BP Pulse Temp(Src) Resp SpO2 141/83 67 36.9 ??C (98.4 ??F) (Oral) 16 98% Allergies as of 08/16/2014 Latex 01/04/2011 Allergy Rash Codeine 05/03/2000 Allergy Nausea And Vomiting Morphine 10/08/2008 Allergy Nausea And Vomiting Other 03/30/2010 Unspecified LW Other1: -Kiara Propofol 08/02/2012 Immunization History Never Reviewed DT 02/08/1986 HEP [...] Ethnicity Preferred Language 1945 Female White Non- Lao This document contains confidential information about your health and care. It is provided directlyto you for your personal, private use only. LITIES MAINTENANCE ENGINEER documented in this encounter Plan of Treatment Not on filedocumented as of this encounter Visit Diagnoses Diagnosis Cough - Primary Acute sinusitis, unspecified Fever presenting with conditions classif ied elsewhere Acute pharyngitis Triage Assessment Note - Sonia Monae RN - 08/16/2014 5:40 PM FACILITIES MAINTENANCE ENGINEER Pt. reports of sinus drainage/pressure, cough with phlegm, fever, headache and sore throat x 3 days. documented in this encounter Care Teams Barrel Inspector Relationship Specialty Start Date End Date Titus Medina MD PCP - General 09/16/1996 03/17/15 documented as of this encounter
--- OUTSIDE RECORDS SUMMARY | 2022-07-30 20:25 | XMS_ITS | Encounter Summary ---
:1945 Author Organization [facility] Address [address], [place] [address] Care Team Providers Name Role Phone Titus Medina MD Primary Care Provider Encounter Details Date Type Department Care Team Description 03/16/2014 Orders Only [facility] Claims MD Jayashree Security Contact Bill [address] [place] [address] Mailstop [id number] [phone] (Wo rk) Social History Tobacco Use Types Packs/Day Years Used Date Smoking Tobacco: Never Assessed Sex Assigned at Date Recorded Not on file documented as of this encounter Plan of Treatment Not on filedocumented as of this encounter Visit Diagnoses Not on filedocumented in this encounter Care Teams Dental Hygiene Instructor Relationship Specialty Start Date End Date Titus Medina MD PCP - General 09/16/1996 03/17/15 documented as of this encounter
--- OUTSIDE RECORDS SUMMARY | 2022-07-30 20:25 | XMS_ITS | Encounter Summary ---
:1945 Author Organization [employer] Address [address] [place] [address] Care Team Providers Name Role Phone Titus Median MD Primary Care Provider Reason for Visit Reason Comments Cough Pharyngitis FACIAL PAIN Encounter Details Date Type Department Care Team Description 08/02/2012 Hospital Encounter [facility] 38[address] Arturo Fraser MD Cough Urgent Care [facility] [address] [place], [place] [address] [place] [address] [phone] Social History Tobacco Use Types Packs/Day Years [...] mouth. 0 08/02/20 12 04/10/2016 COMPLX CAPS Oeuviwcewst-Srmfbkxyr-Gln Take by mouth. 0 201104/12/2019 C-Mn (GLUCOSAMINE CHONDROITIN COMPLX) Magnesium 200 MG Take 800 mg by 0 08/02/201204/03 mouth. Magnesium TABS Take 800 mg by 0 08/02/20122015 mouth. [place]-3 Fatty Acids (SUPER Take by mouth. 0 08/0204/12/2019 OMEGA 3 EPA/DHA OR) SUPER OMEGA 3 EPA/DHA OR Take by mouth. 0 012 04/10/2016 documented as of this encounter ED Notes Kong Fraser MD - 08/02/2012 8:50 PM CDT ED Provider Notes signed by Kong Fraser MD at 08/03/12 1508 Author: Kong Fraser MD Service: (none) Author Type: Physician Filed: 08/03/12 1506 Note Time: 08/02/122049 Status: Signed Saddle Stitching Machine Operator: Kong Fraser MD (Physician) NAME: YIMI GARCIA MR#: [id number] CSN: [id number] AUTHENTICATING CLINICIAN: Kong Fraser MD CONFIRM #: [id number] LOC: 420 URGENT CARE PROGRESS NOTE DATE [...] available to her. AGC:MEDQ C: CONFIRM #: [id number] documented in this encounter Miscellaneous Notes Medication [...] Date:-, Frequency:- *No Administrations Recorded GLUC/FAHEEM-MSM#1/VIT C/RADHIKA/BOR (AVMUWZEKRJI-MNNGF-ALD COMPLEX ORAL) Start Date:-, End Date:-, Frequency:- *No Administrations Recorded Swfxu-1-COA-EPA-Fish Oil 805-1,000 mg Cap Start Date:-, End [...] week documented in this encounter Care Teams Lawn Technician Relationship Specialty Start Date End Date Titus Medina MD PCP - General 09/16/1996 03/17/15 documented as of this encounter
--- OUTSIDE RECORDS SUMMARY | 2022-07-30 20:25 | XMS_ITS | Encounter Summary ---
:1945 Author Organization [facility] Address [address] [place] [address] Care Team Providers Name Role Phone Titus Medina MD Primary Care Provider Encounter Details Date Type Department Care Team Description 02/07/2009 Office Visit [facility] Sabi Blevins, PT [address] [facility] [address] [place] [address] [place] [address] [place] [address] [phone] (Wo rk) Social History Tobacco Use Types Packs/Day Years Used Date Smoking Tobacco: Never Assessed Sex Assigned at Date Recorded Not on file documented as of this encounter Progress Notes Yanet Shaw - 02/07/2009 12:01 AM CDT Progress Notes signed by Yanet Shaw PT at 02/07/09 1701 Author: Yanet Shaw PT Service: (none) Author Type: Physical Therapist Filed: 01/24/11 1301 Note Time: 02/07/09 0001 Status: Signed Emergency Medical Service Coordinator: Yanet Shaw PT (Physical Therapist) Physical Therapy Hip Evaluation Referring Physician: MD Stephane Diagnosis: Left Right [...] (driving) to see her ill mother in [place]. SUBJECTIVE: Pain Ratin/10 Falls in Past Year: No. Previous treatment: Pt has had 1 PT treatment where she was instructed in [employer] Work/Leisure/Sports: Pt enjoys walking around a mile each day, but has stopped now with the bilateral hip pain. She also enjoys traveling, but not any sitting is difficult. 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 OBJECTIVE: General: Mood, orientation, and behavior were appropriate. Patient was alert and oriented. Edema: None. Temperature: Normal bilaterally. ROM: Within normal limits compared to contralateral side. Strength: Weakness noted in bilateral glut medius, glutes and abd. Supine straight leg raise left normal. Supine straight leg raises right normal. Palpation: Tender: Greater trochanter. Special Tests: Special Tests (Bradley: (-) = no reproduction of symptoms/laxity; (+) = reproduction of symptoms/laxity): Hip scour (+) Obers (+) Straight leg raise (-) Functional Tests: Step down test: Pt had bilateral knee valgum with step down. Gait Examination: Full weightbearing. ASSESSMENT: Therapist Impression: Clinical findings are consistent with referring diagnosis. Practice Pattern: Impaired muscle performance (4C). Impaired joint mobility, motor function, muscle performance, and ROM associated with connective tissue dysfunction (4D). Impaired joint mobility, motor function, muscle performance, and ROM associated with localized inflammation (4E). Functional Limitations: Work activities. Leisure. Limitations due to: Joint replacement aftercare. Muscular imbalances. Muscle weakness. Joint pain. Surgical protocol restrictions. Able to ambulate unlimited distances with minimal to no limp/symptoms in 4-6 weeks. Sit for greater than 1 hour with minimal to no symptoms in 2-[address] in 2-4 weeks with ease and safety. Return to prior level of leisure or recreational activities including: Pt enjoys walking around a mile a day without an increase in symptoms in 4-6 weeks. Potential Barriers to Learning: No apparent barriers to learning. Rehab Prognosis: Good to achieve above stated goals. PLAN: Planned Intervention/Education: Education. Manual therapy. Therapeutic exercise. Heat/ice. Ultrasound. PT Frequency/Duration: 1 time per week. For 60 days. Plan for next treatment session: Educate pt in activity modification, home icing program, mm strenthening, stretching of ITB. Modalities for pain based on pt report. Consent: Risks, benefits and alternatives to treatment have been explained. Patient and/or family in agreement with care plan. TREATMENT TODAY: Evaluation: An evaluation was performed. The patient was educated on the condition, planned therapy intervention and expectations from treatment. Goals were a collaborative effort of the therapist and patient. Therapeutic exercise: Patient was provided with the following educational and exercise handouts: Pt educated in HEP of glut medius wall exercise and ITB stretch bilaterally. Modalities: Ultrasound: 10 minutes, 2 Hz, 2.0 W/cm2 to the left hip bursa region. Education/Handouts: Diagnosis education. Response to treatment: Good understanding of home exercise program and post-operative restrictions. Physical Therapy Evaluation (CPT 11176) 15 minutes of Therapeutic Exercise (CPT 13162) 10 minutes of Ultrasound (CPT 35426) Total treatment time: 50 minutes. Therapist: Sabi Espinosa, PT/Yanet Shaw, MPT, OCS #[id number] *SH~TRIA~HIPEVAL ~ Shorthand Note completed on: 02/07/2009 9:03 AM documented in this encounter Plan of Treatment Not on filedocumented as of this encounter Visit Diagnoses Not on filedocumented in this encounter Care Teams Substation Supervisor Relationship Specialty Start Date End Date Titus Medina MD PCP - General 09/16/1996 03/17/15 documented as of this encounter
--- OUTSIDE RECORDS SUMMARY | 2022-07-30 20:25 | XMS_ITS | Encounter Summary ---
:1945 Author Organization [facility] Address [address] [place] [address] Care Team Providers Name Role Phone Titus Medina MD Primary Care Provider Reason for Visit Reason Comments Knee Problem Encounter Details Date Type Department Care Team Description 03/26/2014 Office Visit [facility] Adi Jones Knee pain (Primary Therapy D, PT Dx) [address]. [address] [place], [place] [address] [phone] (Wo rk) Social History Tobacco Use Types Packs/Day Years Used Date Smoking Tobacco: Never Assessed Sex Assigned at Date Recorded Not on file documented as of this encounter Progress Notes Adi Jones D, PT - 03/26/2014 4:16 PM CDT Encounter date: 03/26/2014 Pt : 1945 [facility] Physical Therapy Progress Note Initial Certification Period: 01/09/2014 to 02/08/14 Referring Provider: Pascual Parker Referring Diagnosis: Knee pain Visit Diagnosis/ICD code: Diagnosis (ICD9) ICD-9-CM 1. 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 she has mastered the exercises and feels like she can be progressed. Both her R hip and R knee pain she can get random pain. She also would like a postural exercise to help with her upright posture. OBJECTIVE Current Objective Findings: No objective data taken. Treatment/Education Today: Tx included progressing to 1 hand hold lunges x 15 reps R and L, bridging x 2 feet progress to alternating leg kicks x 20 reps, step downs x 20 with emphasis on eccentric lowering reps R and L and added superman exercise x 5 sec x 10 reps. Total Treatment Time: 20 minutes Current Home Exercise Program List: See eval ASSESSMENT/PROGRESS TOWARD GOALS: Blane tx well. Post tx patient needs to comply with program so distance between appointments is not solarge. Progressing with strength. 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 Plan: Follow up in 3 weeks, check support with exercise. Therapeutic Exercises [address] 20 min Marlon Jones PT [id number] documented in this encounter Plan of Treatment Not on filedocumented as of this encounter Visit Diagnoses Diagnosis Knee pain - Primary Pain in joint, lower leg documented in this encounter Care Teams Senior Recruiter Relationship Specialty Start Date End Date Titus Medina MD PCP - General 09/16/1996 03/17/15 documented as of this encounter
--- OUTSIDE RECORDS SUMMARY | 2022-07-30 20:25 | XMS_ITS | Encounter Summary ---
:1945 Author Organization [facility] Address [address] [place] [address] Care Team Providers Name Role Phone Titus Medina MD Primary Care Provider Encounter Details Date Type Department Care Team Description 07/10/2009 PN Conversion Only [facility] [address] adiology [address] [place], [place] [id number] Social History Tobacco Use Types Packs/Day Years [...] filedocumented in this encounter Care Teams Manager Customer Service Relationship Specialty Start Date End Date Titus Medina MD PCP - General 09/16/1996 03/17/15 documented as of this encounter
--- OUTSIDE RECORDS SUMMARY | 2022-07-30 20:25 | XMS_ITS | Encounter Summary ---
:1945 Author Organization [facility] Address [address] [place] [address] Care Team Providers Name Role Phone Titus Medina MD Primary Care Provider Encounter Details Date Type Department Care Team Description 12/06/2008 Office Visit [facility] Adi Jones, Therapy PT 2000 [facility]. [address] [place], [place] [address] [address] [place] [address] [phone] (Wo rk) Social History Tobacco Use Types [...] 1121 Note Time: 12/06/08 0001 Status: Signed Heat Engineering Teacher: Adi Jones PT (Resource) Physical Therapy Discharge [...] Goal Met: Yes. Electronically signed by: Marlon Jnoes, PT, 5699, 03/14/2009 *SH~REHAB~DISCHARGE~ Shorthand Note completed on: 03/14/2009 3:33 PM Adi Jones PT - 12/06/2008 12:01 AM CST Progress Notes signed by Adi Jones PT at 12/06/08 0929 Author: Adi Jones PT Service: (none) Author Type: Physical Therapist Filed: 01/24/11 1119 Note Time: 12/06/08 0001 Status: Signed Heat Engineering Teacher: Adi Jones PT (Resource) [facility] Physical Therapy Progress Note Visit Number: [...] rolling in bed. Procedures: Neuromuscular Re-education (CPT 29613) 10 minutes. Manual Therapy, 1 or more regions (CPT 21674) 15 minutes. Total treatment time: 25 minutes. Therapist: Marlon Jones PT, 6361 Shorthand Note completed on: 12/06/2008 9:29 AM *SH~REHAB~TPNB ~ TARY COOK documented in this encounter Plan of Treatment Not on filedocumented as of this encounter Visit Diagnoses Not on filedocumented in this encounter Care Teams Customer Success Representative Relationship Specialty Start Date End Date Titus Medina MD PCP - General 09/16/1996 03/17/15 documented as of this encounter
--- OUTSIDE RECORDS SUMMARY | 2022-07-30 20:25 | XMS_ITS | Encounter Summary ---
:1945 Author Organization [facility] Address [address] [place] [address] Care Team Providers Name Role Phone Titus Medina MD Primary Care Provider Encounter Details Date Type Department Care Team Description 11/05/2008 Office Visit [facility] Adi Jones, Therapy PT [address] [facility]. [address] [place], [place] [address]40 4 [place] [address] [phone] (Wo rk) Social History Tobacco Use Types [...] 01/24/11 1027 Note Time: 11/05/082014 Status: Signed Sack Filler: Adi Jones PT (Resource) [facility] Progress Note Visit Number: [...] close to D/C. Procedures: Therapeutic Exercise (CPT 80241) 10 minutes. Manual Therapy, 1 or more regions (CPT 39066) 15 minutes. Total treatment time: 25 minutes. Therapist: .Marlon Jones PT [address] Note completed on: 11/05/2008 8:17 AM *SH~REHAB~TPNB ~ T EDGER documented in this encounter Plan of Treatment Not on filedocumented as of this encounter Visit Diagnoses Not on filedocumented in this encounter Care Teams Product Test Engineer Relationship Specialty Start Date End Date Titus Medina MD PCP - General 09/16/1996 03/17/15 documented as of this encounter
--- OUTSIDE RECORDS SUMMARY | 2022-07-30 20:25 | XMS_ITS | Encounter Summary ---
:1945 Author Organization [facility] Address [address] [place] [address] Care Team Providers Name Role Phone Titus Medina MD Primary Care Provider Reason for Visit Reason Comments Knee Pain or Injury Encounter Details Date Type Department Care Team Description 01/01/2014 Surgical Consult [facility] Pascual Parker Patello femoral syndrome, right (Primary Dx); NAVJOT Teresa MD DJD (degenerative joint dise ase) of knee [address] [id number] Social History Tobacco Use Types Packs/Day Years [...] signed by Pascual Parker MD at 01/07/14 1953 Author: Pascual Parker MD Service: (none) Author Type: Physician Filed: 01/07/142312 Note Time: 01/05/14 1536 Status: Signed Machining Manager: Pascual Parker MD (Physician) NAME: IMELDA GARCIA MR#: [id number] CSN: [id number] AUTHENTICATING CLINICIAN: Pascual Parker MD CONFIRM #: [id number] LOC: 711 CLINIC PROGRESS NOTE DATE OF [...] therapy following that. She was seen at [facility] on 04/07/2011 with complaintsof left hip [...] AND VOMITING. PROPOFOL. 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 REVIEW OF SYSTEMS: [...] for cortisone injection. JLL: C: R:01/03/14 11:30 CONFIRM#:[id number] documented in this encounter Plan of Treatment Not on filedocumented as of this encounter Visit Diagnoses Diagnosis Patellofemoral syndrome, right - Primary DJD (degenerative joint disease) of knee Osteoarthrosis, unspecified whether gene ralized or localized, lower leg documented in this encounter Care Teams Chocolate Molder Relationship Specialty Start Date End Date Titus Medina MD PCP - General 09/16/1996 03/17/15 documented as of this encounter
--- OUTSIDE RECORDS SUMMARY | 2022-07-30 20:25 | XMS_ITS | Encounter Summary ---
:1945 Author Organization [facility] Address [address] [place] [address] Care Team Providers Name Role Phone Titus Medina MD Primary Care Provider Encounter Details Date Type Department Care Team Description 10/08/2008 Office Visit [facility] [address] Ur[address] Elisha chong, Care Gómez Sorenson MD [address] [facility] [place] [address] [place], [place] [address] (Wo rk) Social History Tobacco Use Types Packs/Day Years Used Date Smoking Tobacco: Never Assessed Sex Assigned at Date Recorded Not on file documented as of this encounter Last Filed Vital Signs Vital Sign Reading Time Taken Comments Blood Pressure 136/86 10/08/2008 5:55 PM ASSISTANT BASKETBALL COACH Pulse 70 10/08/2008 5:55 PM ASSISTANT BASKETBALL COACH Temperature 36.4 ??C (97.5 ??F) 10/08/2008 5:55 C: 36.4 C Si multaneous PM ASSISTANT BASKETBALL COACH filing. User may not have seen previo us data. Respiratory Rate 16 10/08/2008 5:55 PM ASSISTANT BASKETBALL COACH Oxygen Saturation - - Inhaled Oxygen - - Concentration Weight - - Height - - Body Mass Index - - documented in this encounter Progress Notes Gómez Ruiz MD - 10/08/2008 12:01 AM CST Progress Notes signed by Yas Starr MD at 10/23/08 1413 Author: Yas Starr MD Service: (none) Author Type: Physician Filed: 01/24/11 0945 Note Time: 10/08/08 0001 Status: Signed Supervisor Audit Clerks: Yas Starr MD (Physician) NAME: YIMI GARCIA MR#: [id number] ACCT: [id number] VISIT: [id number] DICTATING CLINICIAN: Yas Starr MD CONFIRM #: [id number] LOC: 420 CLINIC PROGRESS NOTE DATE OF VISIT: 10/08/2008 SUBJECTIVE: This is a 63-year-old woman who has had severe low back pain after shoveling her mother's driveway 5 days ago in [place]. Has been taking some Tylenol since then [...] any history of emphysema. She used some znsc-pqt-mqcgeki medicine for this cough which is not [...] ibuprofen, and if not better, have followup. [facility]:[id number] C: 10/09/08 11:07 CONFIRM #: [id number] STANT BASKETBALL COACH documented in this encounter Plan of Treatment Not on filedocumented as of this encounter Visit Diagnoses Not on filedocumented in this encounter Care Teams Wood Technologist Relationship Specialty Start Date End Date Titus Medina MD PCP - General 09/16/1996 03/17/15 documented as of this encounter
--- NOTE | 2022-07-30 20:26 | ED.NURSE ---
crutches given to pt. teach, demo and return demo done. no questions. gel splint applied. CMS intact before and after application. pt taken to waiting area via wheelchair. son called for transport. pt getting instymeds. no questions upon discharge.
--- OUTSIDE RECORDS SUMMARY | 2022-07-30 20:26 | XMS_ITS | Encounter Summary ---
:1945 Author Organization [facility] Address [address] [place] [address] Care Team Providers Name Role Phone Titus Medina MD Primary Care Provider Encounter Details Date Type Department Care Team Description 02/02/2008 Office Visit [place] [facility] Adi Jones, [facility] PT [facility] [address] [place], [place] [address] 4 [place] [address] [phone] (Wo rk) Social History Tobacco Use Types Packs/Day Years Used Date Smoking Tobacco: Never Assessed Sex Assigned at Date Recorded Not on file documented as of this encounter Plan of Treatment Not on filedocumented as of this encounter Visit Diagnoses Not on filedocumented in this encounter Care Teams Systems Project Manager Relationship Specialty Start Date End Date Titus Medina MD PCP - General 09/16/1996 03/17/15 documented as of this encounter
--- OUTSIDE RECORDS SUMMARY | 2022-07-30 20:26 | XMS_ITS | Encounter Summary ---
:1945 Author Organization [facility] Address [address] [place] [address] Care Team Providers Name Role Phone Titus Medina MD Primary Care Provider Encounter Details Date Type Department Care Team Description 10/31/2007 Emergency Room [facility] Emergency Dept Emergency, [facility] [address] [place] [address] Provider PROCEDURE/[place] [address] PROTOCOL [phone] Social History Tobacco Use Types Packs/Day Years Used Date Smoking Tobacco: Never Assessed Sex Assigned at Date Recorded Not on file documented as of this encounter Progress Notes Emergency, Provider - 10/31/2007 12:00 AM MANAGER PRODUCT SUPPORT documented in this encounter Plan of Treatment Not on filedocumented as of this encounter Visit Diagnoses Not on filedocumented in this encounter Care Teams Material Control Specialist Relationship Specialty Start Date End Date Titus Medina MD PCP - General 09/16/1996 03/17/15 documented as of this encounter
--- OUTSIDE RECORDS SUMMARY | 2022-07-30 20:26 | XMS_ITS | Encounter Summary ---
:1945 Author Organization [facility] Address [address] [place] [address] Care Team Providers Name Role Phone Titus Medina MD Primary Care Provider Encounter Details Date Type Department Care Team Description 07/23/2008 PN Conversion Only WOOD PILER 3900 CON[address] [place] [address] Social History Tobacco Use Types Packs/Day Years Used Date Smoking Tobacco: Never Assessed Sex Assigned at Date Recorded Not on file documented as of this encounter Plan of Treatment Not on filedocumented as of this encounter Visit Diagnoses Not on filedocumented in this encounter Care Teams Behavior Analyst Relationship Specialty Start Date End Date Titus Medina MD PCP - General 09/16/1996 03/17/15 documented as of this encounter
--- OUTSIDE RECORDS SUMMARY | 2022-07-30 20:26 | XMS_ITS | Encounter Summary ---
:1945 Author Organization [facility] Address [address], [place] [address] Care Team Providers Name Role Phone Titus Medina MD Primary Care Provider Encounter Details Date Type Department Care Team Description 04/19/2008 Orders Only HP Claims MD Jayashree Security Contact Bill [address] [place] [address] Mailstop [id number] [phone] (Wo rk) Social History Tobacco Use Types Packs/Day Years Used Date Smoking Tobacco: Never Assessed Sex Assigned at Date Recorded Not on file documented as of this encounter Plan of Treatment Not on filedocumented as of this encounter Visit Diagnoses Not on filedocumented in this encounter Care Teams Remelter Relationship Specialty Start Date End Date Titus Medina MD PCP - General 09/16/1996 03/17/15 documented as of this encounter
--- OUTSIDE RECORDS SUMMARY | 2022-07-30 20:26 | XMS_ITS | Encounter Summary ---
:1945 Author Organization [facility] Address [address] [place] [address] Care Team Providers Name Role Phone Titus Medina MD Primary Care Provider Encounter Details Date Type Department Care Team Description 02/13/2008 Office Visit [place] [facility] Adi Jones, Therapy PT [address] [facility]. [address] [place], [place] [address] 4 [place] [address] [phone] (Wo rk) Social History Tobacco Use Types Packs/Day Years Used Date Smoking Tobacco: Never Assessed Sex Assigned at Date Recorded Not on file documented as of this encounter Plan of Treatment Not on filedocumented as of this encounter Visit Diagnoses Not on filedocumented in this encounter Care Teams Straight Knife Cutter Machine Relationship Specialty Start Date End Date Titus Medina MD PCP - General 09/16/1996 03/17/15 documented as of this encounter
--- OUTSIDE RECORDS SUMMARY | 2022-07-30 20:26 | XMS_ITS | Encounter Summary ---
:1945 Author Organization [facility] Address [address] [place] [address] Care Team Providers Name Role Phone Titus Medina MD Primary Care Provider Encounter Details Date Type Department Care Team Description 02/06/2008 Procedure Visit CONV P3900 Mery Renner MD [address] [place] [address] [place] [address] (Wo rk) Social History Tobacco [...] 0351 Note Time: 02/06/08 0001 Status: Signed Radio Equipment Repairer: Mery Pak MD (Physician) NAME: YIMI GARCIA MR#: [id number] ACCT: [id number] VISIT: [id number] DICTATING CLINICIAN: MERY PAK MD JOB: [id number] LOC: 458 CLINIC PROGRESS NOTE DATE OF [...] she feels like further treatment is needed. GABRIELLE:[id number] C: 02/07/08 15:52 DOCUMENT: [id number] documented in this encounter Plan of Treatment Not on filedocumented as of this encounter Visit Diagnoses Not on filedocumented in this encounter Care Teams Room Service Waiter Relationship Specialty Start Date End Date Titus Medina MD PCP - General 09/16/1996 03/17/15 documented as of this encounter
--- OUTSIDE RECORDS SUMMARY | 2022-07-30 20:26 | XMS_ITS | Encounter Summary ---
:1945 Author Organization [facility] Address [address] [place] [address] Care Team Providers Name Role Phone Titus Medina MD Primary Care Provider Encounter Details Date Type Department Care Team Description 01/24/2008 Office Visit [place] [facility] Adi Jones, Therapy PT [facility] [address] [place], [place] [address] 4 [place] [address] [phone] (Wo rk) Social History Tobacco Use Types Packs/Day Years Used Date Smoking Tobacco: Never Assessed Sex Assigned at Date Recorded Not on file documented as of this encounter Plan of Treatment Not on filedocumented as of this encounter Visit Diagnoses Not on filedocumented in this encounter Care Teams Rover Tender Relationship Specialty Start Date End Date Titus Medina MD PCP - General 09/16/1996 03/17/15 documented as of this encounter
--- OUTSIDE RECORDS SUMMARY | 2022-07-30 20:26 | XMS_ITS | Encounter Summary ---
:1945 Author Organization [facility] Address [address] [place] [address] Care Team Providers Name Role Phone Titus Medina MD Primary Care Provider Encounter Details Date Type Department Care Team Description 11/28/2007 Office Visit [facility] Yovani Delarosa MD [address] [place], [place] [address] Social History Tobacco Use Types [...] 0113 Note Time: 11/28/07 0001 Status: Signed Brush Or Broom Cutter: Yovani Delarosa MD (Physician) NAME: YIMI GARCIA MR#: [id number] ACCT: [id number] VISIT: [id number] DICTATING CLINICIAN: YOVANI DELAROSA MD JOB: [id number] LOC: 3711 CLINIC PROGRESS NOTE DATE OF [...] hip replacement surgery by Dr. Rivera with [facility]. This was done in [place]. She had the hip replacement surgery on 09/20/07, 2 months ago. Six weeks later, on 10/31/07 she dislocated the hip. She was sitting on the side of a bathtub, internally rotated to shave the back of her leg, and her hip popped out of joint. She was seen at [facility] and reduced. She was given an abduction [...] her ROCÍO socks if they bother her. JLL:[id number] C: 11/29/07 16:41 DOCUMENT: [id number] documented in this encounter Plan of Treatment Not on filedocumented as of this encounter Procedures Procedure Name Priority Date/Time Associated Diagnosis Comme nts XR PELVIS W RT Routine 11/28/2007 4:58 PM Results for this LATERAL HIP IT QUALITY ANALYST procedure are i n the results section. documented in this encounter Results XR Pelvis W Rt Lateral Hip (11/28/2007 4:58 PM IT QUALITY ANALYST) Anatomical Region Laterality Modality Pelvis, Hip Other Specimen (Source) Anatomical Location Collection Method / Collectio n Time Received Time / Laterality Volume Narrative 11/28/2007 4:58 PM IT QUALITY ANALYST AP PELVIS WITH RIGHT LATERAL HIP: INDICATION: [...] filedocumented in this encounter Care Teams Farm Equipment Operator Relationship Specialty Start Date End Date Titus Medina MD PCP - General 09/16/1996 03/17/15 documented as of this encounter
--- OUTSIDE RECORDS SUMMARY | 2022-07-30 20:26 | XMS_ITS | Encounter Summary ---
:1945 Author Organization [facility] Address [address] [place] [address] Care Team Providers Name Role Phone Titus Medina MD Primary Care Provider Encounter Details Date Type Department Care Team Description 11/21/2007 PN Conversion Only DIRECTOR OF MATERNITY SERVICES [address] [place] [address] Social History Tobacco Use Types Packs/Day Years Used Date Smoking Tobacco: Never Assessed Sex Assigned at Date Recorded Not on file documented as of this encounter Plan of Treatment Not on filedocumented as of this encounter Visit Diagnoses Not on filedocumented in this encounter Care Teams Teaching Artist Relationship Specialty Start Date End Date Titus Medina MD PCP - General 09/16/1996 03/17/15 documented as of this encounter
--- OUTSIDE RECORDS SUMMARY | 2022-07-30 20:26 | XMS_ITS | Encounter Summary ---
:1945 Author Organization [facility] Address [address] [place] [address] Care Team Providers Name Role Phone Titus Medina MD Primary Care Provider Encounter Details Date Type Department Care Team Description 11/21/2007 Procedure Visit CONV P3900 Mery Renner MD [address] [place] [address] [place] [address] (Wo rk) Social History Tobacco [...] 0102 Note Time: 11/21/07 0001 Status: Signed Technology Training Associate: Mery Weber MD (Physician) NAME: YIMI GARCIA MR#: [id number] ACCT: [id number] VISIT: [id number] DICTATING CLINICIAN: MERY WEBER MD JOB: [id number] LOC: 458 CLINIC PROGRESS NOTE DATE OF [...] the Red Relief moisturizer from ??[employer]??. GABRIELLE:[id number] C: 11/22/07 08:17 DOCUMENT: [id number] GER DATABASE documented in this encounter Plan of Treatment Not on filedocumented as of this encounter Visit Diagnoses Not on filedocumented in this encounter Care Teams Methods Analyst Data Processing Relationship Specialty Start Date End Date Titus Medina MD PCP - General 09/16/1996 03/17/15 documented as of this encounter
--- OUTSIDE RECORDS SUMMARY | 2022-07-30 20:26 | XMS_ITS | Encounter Summary ---
:1945 Author Organization [facility] Address [address] [place] [address] Care Team Providers Name Role Phone Titus Medina MD Primary Care Provider Encounter Details Date Type Department Care Team Description 02/23/2008 Office Visit [place] [facility] Adi Jones, Therapy PT [facility] [address] [place], [place] [address] 4 [place] [address] [phone] (Wo rk) Social History Tobacco Use Types Packs/Day Years Used Date Smoking Tobacco: Never Assessed Sex Assigned at Date Recorded Not on file documented as of this encounter Plan of Treatment Not on filedocumented as of this encounter Visit Diagnoses Not on filedocumented in this encounter Care Teams Electronic Assembler Group Leader Relationship Specialty Start Date End Date Titus Medina MD PCP - General 09/16/1996 03/17/15 documented as of this encounter
--- OUTSIDE RECORDS SUMMARY | 2022-07-30 20:26 | XMS_ITS | Encounter Summary ---
:1945 Author Organization [facility] Address [address] [place] [address] Care Team Providers Name Role Phone Titus Medina MD Primary Care Provider Encounter Details Date Type Department Care Team Description 03/12/2008 Office Visit [place] [facility] Adi Jones, Therapy PT [address] [facility] [address] [place], [place] [address] 4 [place] [address] [phone] (Wo rk) Social History Tobacco Use Types Packs/Day Years Used Date Smoking Tobacco: Never Assessed Sex Assigned at Date Recorded Not on file documented as of this encounter Plan of Treatment Not on filedocumented as of this encounter Visit Diagnoses Not on filedocumented in this encounter Care Teams [employer] Team Member Relationship Specialty Start Date End Date Titus Medina MD PCP - General 09/16/1996 03/17/15 documented as of this encounter
--- OUTSIDE RECORDS SUMMARY | 2022-07-30 20:26 | XMS_ITS | Encounter Summary ---
:1945 Author Organization [facility] Address [address] [place] [address] Care Team Providers Name Role Phone Titus [...] on filedocumented in this encounter Care Teams Sample Tailor Relationship Specialty Start Date End Date Titus Medina MD PCP - General 09/16/1996 03/17/15 documented as of this encounter
--- OUTSIDE RECORDS SUMMARY | 2022-07-30 20:26 | XMS_ITS | Encounter Summary ---
:1945 Author Organization [facility] Address [address] [place] [address] Care Team Providers Name Role Phone Titus Medina MD Primary Care Provider Encounter Details Date Type Department Care Team Description 02/06/2008 PN Conversion Only RIVET STICKER [address] [place] [address] Social History Tobacco Use Types Packs/Day Years Used Date Smoking Tobacco: Never Assessed Sex Assigned at Date Recorded Not on file documented as of this encounter Plan of Treatment Not on filedocumented as of this encounter Visit Diagnoses Not on filedocumented in this encounter Care Teams Voice Intercept Technician Relationship Specialty Start Date End Date Titus Medina MD PCP - General 09/16/1996 03/17/15 documented as of this encounter
--- OUTSIDE RECORDS SUMMARY | 2022-07-30 20:26 | XMS_ITS | Encounter Summary ---
:1945 Author Organization [facility] Address [address] [place] [address] Care Team Providers Name Role Phone Titus Medina MD Primary Care Provider Encounter Details Date Type Department Care Team Description 04/03/2008 Office Visit [place] [facility] Adi Jones, Therapy PT [address] [facility] [address] [place], [place] [address] 4 [place] [address] [phone] (Wo rk) Social History Tobacco Use Types Packs/Day Years Used Date Smoking Tobacco: Never Assessed Sex Assigned at Date Recorded Not on file documented as of this encounter Plan of Treatment Not on filedocumented as of this encounter Visit Diagnoses Not on filedocumented in this encounter Care Teams Rubber Curer Relationship Specialty Start Date End Date Titus Medina MD PCP - General 09/16/1996 03/17/15 documented as of this encounter
--- OUTSIDE RECORDS SUMMARY | 2022-07-30 20:26 | XMS_ITS | Encounter Summary ---
:1945 Author Organization [facility] Address [address] [place] [address] Care Team Providers Name Role Phone Titus Medina MD Primary Care Provider Encounter Details Date Type Department Care Team Description 04/12/2008 Office Visit [place] [facility] Adi Jones, Therapy PT [address] [facility] [address] [place], [place] [address] 4 [place] [address] [phone] (Wo rk) Social History Tobacco Use Types Packs/Day Years Used Date Smoking Tobacco: Never Assessed Sex Assigned at Date Recorded Not on file documented as of this encounter Plan of Treatment Not on filedocumented as of this encounter Visit Diagnoses Not on filedocumented in this encounter Care Teams Radio Program Checker Relationship Specialty Start Date End Date Titus Medina MD PCP - General 09/16/1996 03/17/15 documented as of this encounter
--- OUTSIDE RECORDS SUMMARY | 2022-07-30 20:26 | XMS_ITS | Encounter Summary ---
:1945 Author Organization [facility] Address [address] [place] [address] Care Team Providers Name Role Phone Titus Medina MD Primary Care Provider Reason for Visit Reason Comments Other Encounter Details Date Type Department Care Team Description 01/02/2008 Telephone [facility], Message Other [address] [place] [address] Social History Tobacco Use Types Packs/Day Years Used Date Smoking Tobacco: Never Assessed Sex Assigned at Date Recorded Not on file documented as of this encounter [facility], Message - 01/02/2008 4:46 PM CDT Phone Note filed by SlimTrader at 01/21/11 7427 Author: SlimTrader Service: (none) Author Type: (none) Filed: 01/21/111737 Note Time: 01/02/08 1646 Status: Signed Fur Farmer: SlimTrader Non -Symptom Message from Front Line Caller Name/Relationship:Ramona Primary Electrical Assembly Supervisor:Dr Pavon Message:Patient is requesting that physical therapy orders be faxed to [facility] at fax # [phone] by tomorrow afternoon. Patient states that she did not use the 11/03/2007 orders because of her work schedule. Glaze Maker:Ramona Best call back number:[phone] Is it OK to leave a confidential message on this voicemail? yes *ECODE~[id number] Created on 02Jan2008 4:46pm by GAVIN ROBERTS On 02Jan2008 4:47pm GAVIN ROBERTS wrote: FYI Patient asked that you have the fax attention Marlon Jones. On 03Jan2008 9:28am COREY CHAMBERLAIN wrote: I will not be able to order PT as there is nothing in Dr. Pavon's note to tell me what she needs PT for. If we can get a copy of the old orders I can re-order. Acknowledged by COREY CHAMBERLAIN on 9:28am On 03Jan2008 9:42am KENDY LAMBERT wrote: ramona will bring in her old PT form which she states yesterday. Transfer info from old to new. UNITY LIAISON documented in this encounter Plan of Treatment Not on filedocumented as of this encounter Visit Diagnoses Not on filedocumented in this encounter Care Teams Structured Cabling Technician Relationship Specialty Start Date End Date Titus Medina MD PCP - General 09/16/1996 03/17/15 documented as of this encounter
--- OUTSIDE RECORDS SUMMARY | 2022-07-30 20:26 | XMS_ITS | Encounter Summary ---
:1945 Author Organization [facility] Address [address] [place] [address] Care Team Providers Name Role Phone Titus Medina MD Primary Care Provider Encounter Details Date Type Department Care Team Description 10/31/2007 Correspondence Emergency Dept Emergency, [facility] D/C PATIENT 640 [facility] [place] [address] Social History Tobacco Use Types Packs/Day Years Used Date Smoking Tobacco: Never Assessed Sex Assigned at Date Recorded Not on file documented as of this encounter Progress Notes Emergency, Provider - 10/31/2007 12:00 AM DELIVERY TECH documented in this encounter Plan of Treatment Not on filedocumented as of this encounter Visit Diagnoses Not on filedocumented in this encounter Care Teams Transcript Clerk Relationship Specialty Start Date End Date Titus Medina MD PCP - General 09/16/1996 03/17/15 documented as of this encounter
--- OUTSIDE RECORDS SUMMARY | 2022-07-30 20:26 | XMS_ITS | Encounter Summary ---
:1945 Author Organization [facility] Address [address] [address] Care Team Providers Name Role Phone Titus Medina MD Primary Care Provider Reason for Visit Reason Onset Date Comments QUESTIONS, GENERAL 11/01/2007 Pt is wondering for how long she should use her brace that she was given y esterday. Encounter Details Date Type Department Care Team Description 11/01/2007 Telephone Emergency Dept Titus Medina MD QUESTIONS, GENERAL (Pt 640 [facility]. [address] [place] [address] [place] [address] long she should use her [phone] (Wo rk) brace that she was given yes terday.) Social History Tobacco Use Types Packs/Day Years Used Date Smoking Tobacco: Never Assessed Sex Assigned at Date Recorded Not on file documented as of this encounter Nursing Notes Graeme Daniel - 11/01/2007 3:46 PM CST Pt wondering how long she is to wear the brace she was given yesterday after her hip dislocation. Reviewed pt's chart which states pt is to wear the knee immobilizer during the day and use the hip abducter at night. Explained that she was also to follow up with Ortho in 2 days. Explained the importance of keeping this appointment. Pt verblized understanding. ING MACHINE OPERATOR documented in this encounter Plan of Treatment Not on filedocumented as of this encounter Visit Diagnoses Not on filedocumented in this encounter Care Teams Compliance Monitor Relationship Specialty Start Date End Date Titus Medina MD PCP - General 09/16/1996 03/17/15 documented as of this encounter
--- OUTSIDE RECORDS SUMMARY | 2022-07-30 20:26 | XMS_ITS | Encounter Summary ---
:1945 Author Organization [facility] Address [address] [place] [address] Care Team Providers Name Role Phone Titus Medina MD Primary Care Provider Encounter Details Date Type Department Care Team Description 07/23/2008 Procedure Visit CONV [id number] Mery Renner MD [address] [place] [address] [place] [address] (Wo rk) Social History Tobacco [...] 0754 Note Time: 07/23/08 0001 Status: Signed Editorial Manager: Mery Weber MD (Physician) NAME: YIMI GARCIA MR#: [id number] ACCT: [id number] VISIT: [id number] DICTATING CLINICIAN: MERY WEBER MD CONFIRM #: [id number] LOC: 458 CLINIC PROGRESS NOTE DATE OF [...] ASSESSMENT: PLAN: Follow up again as needed. GABRIELLE:[id number] C: 07/23/08 20:47 CONFIRM #: [id number] documented in this encounter Plan of Treatment Not on filedocumented as of this encounter Visit Diagnoses Not on filedocumented in this encounter Care Teams Printed Circuit Photographer Relationship Specialty Start Date End Date Titus Medina MD PCP - General 09/16/1996 03/17/15 documented as of this encounter
--- OUTSIDE RECORDS SUMMARY | 2022-07-30 20:26 | XMS_ITS | Encounter Summary ---
:1945 Author Organization [facility] Address [address] [place] [address] Care Team Providers Name Role Phone Titus Medina MD Primary Care Provider Encounter Details Date Type Department Care Team Description 01/26/2008 Office Visit [place] [facility], [facility] PT [facility] [address] [place], [place] [address] [place] [address] [phone] (Wo rk) Social History Tobacco Use Types Packs/Day Years Used Date Smoking Tobacco: Never Assessed Sex Assigned at Date Recorded Not on file documented as of this encounter Plan of Treatment Not on filedocumented as of this encounter Visit Diagnoses Not on filedocumented in this encounter Care Teams Bead Wrapper Relationship Specialty Start Date End Date Titus Medina MD PCP - General 09/16/1996 03/17/15 documented as of this encounter
--- OUTSIDE RECORDS SUMMARY | 2022-07-30 20:26 | XMS_ITS | Encounter Summary ---
:1945 Author Organization [facility] Address [address] [place] [address] Care Team Providers Name Role Phone Titus Medina MD Primary Care Provider Encounter Details Date Type Department Care Team Description 03/01/2008 Office Visit [place] [facility] Adi [facility], [facility] PT [facility] [address] [place], [place] [address] [place] [address] [phone] (Wo rk) Social History Tobacco Use Types Packs/Day Years Used Date Smoking Tobacco: Never Assessed Sex Assigned at Date Recorded Not on file documented as of this encounter Plan of Treatment Not on filedocumented as of this encounter Visit Diagnoses Not on filedocumented in this encounter Care Teams Utility Worker Driver Relationship Specialty Start Date End Date Titus Medina MD PCP - General 09/16/1996 03/17/15 documented as of this encounter
--- OUTSIDE RECORDS SUMMARY | 2022-07-30 20:26 | XMS_ITS | Encounter Summary ---
:1945 Author Organization [facility] Address [address] [place] [address] Care Team Providers Name Role Phone Titus Medina MD Primary Care Provider Encounter Details Date Type Department Care Team Description 11/02/2007 Office Visit [facility] Jatinder Hi MD [address] [place] [id number] [phone] Social History Tobacco Use Types Packs/Day Years Used Date Smoking Tobacco: Never Assessed Sex Assigned at Date Recorded Not on file documented as of this encounter Last Filed Vital Signs Vital Sign Reading Time Taken Comments Blood Pressure 128/70 11/02/2007 10:09 AM ENVIRONMENTAL ENGINEER SCIENTIST Pulse 80 11/02/2007 10:09 AM ENVIRONMENTAL ENGINEER SCIENTIST Temperature - - Respiratory Rate - - Oxygen Saturation - - Inhaled Oxygen Concentration - - Weight 78.5 kg (172 lb 15.9 oz) 11/02/2007 10:09 AM C: 78.5kg ENVIRONMENTAL ENGINEER SCIENTIST Height - - Body Mass Index 27.5 09/01/2007 4:18 PM ENVIRONMENTAL ENGINEER SCIENTIST documented in this encounter Progress Notes Jatinder Pavon MD - 11/02/2007 12:01 AM CST Progress Notes signed by Jatinder Pavon MD at 12/07/07 0829 Author: Jatinder Pavon MD Service: (none) Author Type: Physician Filed: 01/24/11 0038 Note Time: 11/02/07 0001 Status: Signed Machine Buffer: Jatinder Pavon MD (Physician) NAME: YIMI GARCIA MR#: [id number] ACCT: [id number] VISIT: [id number] DICTATING CLINICIAN: JATINDER PAVON MD JOB: [id number] LOC: 2602 CLINIC PROGRESS NOTE DATE OF VISIT: 11/02/2007 SUBJECTIVE: CHIEF COMPLAINT: Hospital followup. SUBJECTIVE: A 62-year-old female had hip replacement and initially had done very well with it. Went home from rehab promptly. However, she dislocated her hip October 31, just reaching over to put on socks. Was seen in the emergency room at [facility] and the hip was easily relocated. [...] hip replacement surgery. 2. Labial itching. PLAN: [id number] hydrocortisone for the labial itching and follow up if persists. Refill her hydromorphone and follow up with Orthopedic as scheduled. [id number] C: 11/28/07 10:33 DOCUMENT: [id number] RONMENTAL ENGINEER SCIENTIST documented in this encounter Plan of Treatment Not on filedocumented as of this encounter Visit Diagnoses Not on filedocumented in this encounter Care Teams Can Patcher Relationship Specialty Start Date End Date Titus Medina MD PCP - General 09/16/1996 03/17/15 documented as of this encounter
--- OUTSIDE RECORDS SUMMARY | 2022-07-30 20:26 | XMS_ITS | Encounter Summary ---
:1945 Author [facility] Address [address] [place] [address] Care Team Providers Name Role Phone Titus Medina MD Primary Care Provider Encounter Details Date Type Department Care Team Description 10/31/2007 Emergency Room Emergency Dept Emergency, [facility] ED Procedural 640 [facility] [place] [address] Social History Tobacco Use Types Packs/Day Years Used Date Smoking Tobacco: Never Assessed Sex Assigned at Date Recorded Not on file documented as of this encounter Progress Notes Emergency, Provider - 10/31/2007 12:00 AM LINE CLOSER documented in this encounter Plan of Treatment Not on filedocumented as of this encounter Visit Diagnoses Not on filedocumented in this encounter Care Teams 8Th Grade Mathematics Teacher Relationship Specialty Start Date End Date Titus Medina MD PCP - General 09/16/1996 03/17/15 documented as of this encounter
--- OUTSIDE RECORDS SUMMARY | 2022-07-30 20:26 | XMS_ITS | Encounter Summary ---
:1945 Author Organization [facility] Address [address] [place] [address] Care Team Providers Name Role Phone Titus Medina MD Primary Care Provider Encounter Details Date Type Department Care Team Description 03/08/2008 Office Visit [place] [facility] Adi Jones, Therapy PT [address] [facility] [address] [place], [place] [address] [place] [address] [phone] (Wo rk) Social History Tobacco Use Types Packs/Day Years Used Date Smoking Tobacco: Never Assessed Sex Assigned at Date Recorded Not on file documented as of this encounter Plan of Treatment Not on filedocumented as of this encounter Visit Diagnoses Not on filedocumented in this encounter Care Teams Mix Maker Relationship Specialty Start Date End Date Titus Medina MD PCP - General 09/16/1996 03/17/15 documented as of this encounter
--- OUTSIDE RECORDS SUMMARY | 2022-07-30 20:26 | XMS_ITS | Encounter Summary ---
:1945 Author Organization [facility] Address [address] [place] [address] Care Team Providers Name Role Phone Titus Medina MD Primary Care Provider Encounter Details Date Type Department Care Team Description 05/16/2008 PN Conversion Only [facility] 38[address] R adiology [address] [place], [place] [address] Social History Tobacco Use Types Packs/Day Years [...] filedocumented in this encounter Care Teams Oil Expert Relationship Specialty Start Date End Date Titus Medina MD PCP - General 09/16/1996 03/17/15 documented as of this encounter
--- OUTSIDE RECORDS SUMMARY | 2022-07-30 20:26 | XMS_ITS | Encounter Summary ---
:1945 Author Organization [facility] Address [address] [place] [address] Care Team Providers Name Role Phone Titsu Medina MD Primary Care Provider Encounter Details Date Type Department Care Team Description 01/31/2008 Office Visit [place] [facility] Adi Jones, Therapy PT [address] [facility] [address] [place], [place] [address] 4 [place] [address] [phone] (Wo rk) Social History Tobacco Use Types Packs/Day Years Used Date Smoking Tobacco: Never Assessed Sex Assigned at Date Recorded Not on file documented as of this encounter Plan of Treatment Not on filedocumented as of this encounter Visit Diagnoses Not on filedocumented in this encounter Care Teams Activity Leader Relationship Specialty Start Date End Date Titus Medina MD PCP - General 09/16/1996 03/17/15 documented as of this encounter
--- OUTSIDE RECORDS SUMMARY | 2022-07-30 20:26 | XMS_ITS | Encounter Summary ---
:1945 Author Organization [facility] Address [address], [place] [address] Care Team Providers Name Role Phone Titus Medina MD Primary Care Provider Encounter Details Date Type Department Care Team Description 10/31/2007 Scanned History External to External, [place] [address] Social History Tobacco Use Types Packs/Day Years Used Date Smoking Tobacco: Never Assessed Sex Assigned at Date Recorded Not on file documented as of this encounter Progress Notes External, Provider - 10/31/2007 12:00 AM TOUR GUIDE documented in this encounter Plan of Treatment Not on filedocumented as of this encounter Visit Diagnoses Not on filedocumented in this encounter Care Teams Cleaning Supervisor Relationship Specialty Start Date End Date Titus Medina MD PCP - General 09/16/1996 03/17/15 documented as of this encounter
--- OUTSIDE RECORDS SUMMARY | 2022-07-30 20:27 | XMS_ITS | Encounter Summary ---
:1945 Author [facility] Address [address] [place] [address] Care Team Providers Name Role Phone Titus Medina MD Primary Care Provider Encounter Details Date Type Department Care Team Description 09/01/2007 PN Conversion Only [facility] Solomon Carter MD [address] [place] [id number] (Wo rk) Social History Tobacco Use Types [...] oz) 09/01/2007 4:18 PM C: 7 9.8kg HIMS CLERK Height 168.9 cm (5' 6.5) 09/01/2007 4:18 PM C: 168.9cm HIMS CLERK Body Mass Index 27.98 09/01/2007 4:18 PM HIMS CLERK documented in this encounter Plan of Treatment Not on filedocumented as of this encounter Procedures Procedure Name Priority Date/Time Associated Diagnosis Comme nts ECG 12 LEAD CLINIC Routine 09/01/2007 5:18 PM Res ults for this HIMS CLERK procedure are i n the results section. documented in this encounter Results ECG 12 lead clinic (09/01/2007 5:18 PM HIMS CLERK) Specimen (Source) Anatomical Collection Method Collection Time Re ceived Time Location / / Volume Laterality 09/01/2007 5:18 PM HIMS CLERK Narrative HP CONVERSION - 09/01/2007 5:18 PM HIMS CLERK Normal sinus rhythm Normal ECG No previous ECGs available Imr Conversion PN ECG ORDERABLES Performing Organization Address City/State/ZIP Code Phon e Number HP CONVERSION documented in this encounter Visit Diagnoses Not on filedocumented in this encounter Care Teams Retort Pre Cooker Relationship Specialty Start Date End Date Titus Medina MD PCP - General 09/16/1996 03/17/15 documented as of this encounter
--- OUTSIDE RECORDS SUMMARY | 2022-07-30 20:27 | XMS_ITS | Encounter Summary ---
:1945 Author Organization [facility] Address [address] [place] [address] Care Team Providers Name Role Phone Titus Medina MD Primary Care Provider Encounter Details Date Type Department Care Team Description 04/05/2007 Office Visit [facility] Mark Coleman, [address], [facility] [address] [place] [address] [place], [place] [address] (Wo rk) Social History [...] in this encounter Progress Notes Mark Arriaza, [facility] - 04/05/2007 12:01 AM CDT Progress Notes signed by SILAS Yun at 04/14/07 0133 Author: SILAS Yun Service: (none) Author Type: Physician Filed: 01/23/112018 Note Time: 04/05/07 0001 Status: Signed Survey Research Associate: SILAS Yun (Physician) NAME: YIMI GARCIA MR#: [id number] ACCT: [id number] VISIT: [id number] DICTATING CLINICIAN: MARK ARRIAZA MD JOB: [id number] LOC: 2602 CLINIC PROGRESS NOTE DATE OF [...] assessment. This patient was staffed with Dr. Anh Coleman. SA:[id number] C: 04/07/07 07:37 DOCUMENT: [id number] documented in this encounter Plan of Treatment Not on filedocumented as of this encounter Visit Diagnoses Not on filedocumented in this encounter Care Teams Cryptographic Machine Operator Relationship Specialty Start Date End Date Ttius Medina MD PCP - General 09/16/1996 03/17/15 documented as of this encounter
--- OUTSIDE RECORDS SUMMARY | 2022-07-30 20:27 | XMS_ITS | Encounter Summary ---
:1945 Author [facility] Address [address] [place] [address] Care Team Providers Name Role Phone Titus Medina MD Primary Care Provider Encounter Details Date Type Department Care Team Description 09/01/2007 PN Conversion Only CONGREG[facility] CONVERSION Balbir Cassidy MD [address] [place], [place] [address] (Wo rk) Social History Tobacco Use Types Packs/Day Years Used Date Smoking Tobacco: Never Assessed Sex Assigned at Date Recorded Not on file documented as of this encounter Plan of Treatment Not on filedocumented as of this encounter Visit Diagnoses Not on filedocumented in this encounter Care Teams Armhole Feller Handstitching Machine Relationship Specialty Start Date End Date Titus Medina MD PCP - General 09/16/1996 03/17/15 documented as of this encounter
--- OUTSIDE RECORDS SUMMARY | 2022-07-30 20:27 | XMS_ITS | Encounter Summary ---
:1945 Author Organization [facility] Address [address], [place] [address] Care Team Providers Name Role Phone Titus Medina MD Primary Care Provider Encounter Details Date Type Department Care Team Description 04/28/2007 Office Visit [facility] [address] Clinic [address] [place] [address] [place], [place] [phone] [address] Social History Tobacco Use Types Packs/Day Years [...] 0000 Note Time: 04/28/07 0001 Status: Signed Station Examiner: Sharda Allen RN (Registered Nurse) Travel [facility] [...] Influenza, BSE, Diphtheria/Tetanus, Hepatitis A, Hepatitis B, Indonesian Encephalitis, Sexually Transmitted Diseases, Tickborne Illnesses, Travax/CDC [...] on filedocumented in this encounter Care Teams Lamp Shades Supervisor Relationship Specialty Start Date End Date Titus Medina MD PCP - General 09/16/1996 03/17/15 documented as of this encounter
--- OUTSIDE RECORDS SUMMARY | 2022-07-30 20:27 | XMS_ITS | Encounter Summary ---
:1945 Author Organization [facility] Address [address] [place] [address] Care Team Providers Name Role Phone Titus Medina MD Primary Care Provider Encounter Details Date Type Department Care Team Description 02/24/2007 Office Visit [facility] Yovani Delarosa MD [address] [place], [place] [address] Social History Tobacco Use Types Packs/Day Years Used Date Smoking Tobacco: Never Assessed Sex Assigned at Date Recorded Not on file documented as of this encounter Progress Notes Yovani Delarosa MD - 02/24/2007 12:01 AM CDT Progress Notes signed by Yovani Delarosa MD at 04/03/07 5779 Author: Yovani Delarosa MD Service: (none) Author Type: Physician Filed: 01/23/111932 Note Time: 02/24/07 0001 Status: Signed Carbon Sequestration Plant Manager: Yovani Delarosa MD (Physician) NAME: YIMI GARCIA MR#: [id number] ACCT: [id number] VISIT: [id number] DICTATING CLINICIAN: YOVANI DELAROSA MD JOB: [id number] LOC: 3711 CLINIC PROGRESS NOTE DATE OF VISIT: 02/24/2007 SUBJECTIVE: : 1945. CHIEF COMPLAINT: Discomfort in legs. HISTORY OF PRESENT ILLNESS: This 61-year-old woman states that she has pain and discomfort in her right hip radiating down her right thigh both anteriorly and laterally when she walks. She walks at the [facility] about 6 laps and has to stop [...] and lidocaine injection into her right hip. [id number] C: 02/28/07 20:07 DOCUMENT: [id number] documented in this encounter Plan of Treatment [...] filedocumented in this encounter Care Teams Assistant Operations Manager Relationship Specialty Start Date End Date Titus Medina MD PCP - General 09/16/1996 03/17/15 documented as of this encounter
--- OUTSIDE RECORDS SUMMARY | 2022-07-30 20:27 | XMS_ITS | Encounter Summary ---
:1945 Author Organization [facility] Address [address] [place] [address] Care Team Providers Name Role Phone Titus Meidna MD Primary Care Provider Encounter Details Date Type Department Care Team Description 04/08/2007 Hospital Encounter GNOSTICIST CONVERSION Pascual Parker MD Social History Tobacco [...] injected. T here were no complications immediately. [id number] Dictating RADHA NÚÑEZ RADIOLOGIST Procedure Note Radha [...] injected. T here were no complications immediately. [id number] Dictating RADHA NÚÑEZ RADIOLOGIST Pascual Parker MD RAD [place] documented in this encounter Visit Diagnoses Not on filedocumented in this encounter Care Teams Quilt Stuffer Relationship Specialty Start Date End Date Titus Medina MD PCP - General 09/16/1996 03/17/15 documented as of this encounter
--- OUTSIDE RECORDS SUMMARY | 2022-07-30 20:27 | XMS_ITS | Encounter Summary ---
:1945 Author Organization [facility] Address [address] [place] [address] Care Team Providers Name Role Phone Titus Medina MD Primary Care Provider Reason for Visit Reason Comments Other Encounter Details Date Type Department Care Team Description 05/30/2007 Telephone [facility] [address] Jennifer Hart Other Surgery [address] [place] [address] [place], [place] [address] Social History Tobacco Use Types Packs/Day Years Used Date Smoking Tobacco: Never Assessed Sex Assigned at Date Recorded Not on file documented as of this encounter Progress Jennifer Cheema - 05/30/2007 4:37 PM CDT Phone Note filed by Jennifer Mendez at 01/21/11257 Author: Jennifer Mendez Service: (none) Author Type: Resource Filed: 01/21/11257 Note Time: 05/30/07 1637 Status: Signed Manager Market Research: Jennifer Mendez (Resource) seen for facial veins and aging will start with vbeam 2 sessions at $220. each total $440. and pixil later at $2500. do in Oct. vbeam [address] given rx for acyclovir for herpes. Created on 30May2007 4:37pm by JENNIFER MENDEZ AVER HAND [employer]ARD [employer] documented in this encounter Plan of Treatment Not on filedocumented as of this encounter Visit Diagnoses Not on filedocumented in this encounter Care Teams Fish Bait Picker Relationship Specialty Start Date End Date Titus Medina MD PCP - General 09/16/1996 03/17/15 documented as of this encounter
--- OUTSIDE RECORDS SUMMARY | 2022-07-30 20:27 | XMS_ITS | Encounter Summary ---
:1945 Author Organization [employer] Address [address], [place] [address] Care Team Providers Name Role Phone Titus Medina MD Primary Care Provider Encounter Details Date Type Department Care Team Description 09/20/2007 [facility] Kevin Rivera Op Report-Dictated [address] MD [place], [place] [id number] [address] [facility] N [phone] [place], [place] [id number] Social History Tobacco Use Types Packs/Day Years [...] 09/20/2007 12:00 AM Re sults for this MEAT STUFFER procedure are i n the results section. LAB IP 09/20/2007 12:00 AM Results for this MEAT STUFFER procedure are i n the results section. ECG TRACING 09/20/2007 12:00 AM Results for this MEAT STUFFER procedure are i n the results section. documented in this encounter Results LAB IP (09/20/2007 12:00 AM MEAT STUFFER) Narrative This result has an attachment that is no t available. Transcriptions Kevin Rivera MD - 09/20/2007 12 :00 AM CST Kevin Rivera MD DUMMY/OTHER/AR IMAGING REPORTS HX (09/20/2007 12:00 AM MEAT STUFFER) Anatomical Region Laterality Modality Other Narrative This result has an attachment that is no t available. Transcriptions Kevin Rivera MD - 09/20/2007 12 :00 AM CST Kevin Rivera MD - 09/20/2007 12 :00 AM CST Kevin Rivera MD DUMMY/OTHER/AR ECG TRACING (09/20/2007 12:00 AM MEAT STUFFER) Narrative This result has an attachment that is no t available. Transcriptions Kevin Rivera MD - 09/20/2007 12 :00 AM CST Kevin Rivera MD EKG documented in this encounter Visit Diagnoses Not on filedocumented in this encounter Care Teams Supply Manager Relationship Specialty Start Date End Date Titus Medina MD PCP - General 09/16/1996 03/17/15 documented as of this encounter
--- OUTSIDE RECORDS SUMMARY | 2022-07-30 20:27 | XMS_ITS | Encounter Summary ---
:1945 Author Organization [facility] Address [address], [place] [address] Care Team Providers Name Role Phone Titus Medina MD Primary Care Provider Reason for Visit Reason Comments Other Encounter Details Date Type Department Care Team Description 09/28/2007 Telephone [facility] Sendy Conti Other [address] , [address] [place], [place] [address] Social History Tobacco Use Types Packs/Day Years Used Date Smoking Tobacco: Never Assessed Sex Assigned at Date Recorded Not on file documented as of this encounter [facility], Message - 09/28/2007 10:00 AM CST Phone Note filed by Krowder at 01/21/11 6838 Author: Krowder Service: (none) Author Type: (none) Filed: 01/21/11 1100 Note Time: 09/28/07 1000 Status: Signed Project Associate: Krowder Medication Issue/Refill Caller Name/Relationship:self Primary Machine I Trimmer:Dr Pavon Comment/Symptom:pt would like refills, states that she saw Dr Pavon on [address] Pavon wrote them to be forwarded to [facility] mails service at that time but they are not yet at [facility] Name & Phone #:[facility], open [address] City: Drug Name: 1). Estradiol 0.1 cream 2). Hydroxyzine HCL 25 mg tablets 1 tablet every 6 hours as needed 3). Pramoxine 1 percent--Hydrocortisone 1 per cent, foam. Strength: Dose/Route/Freq: Millwright Helper: Best call back number:[phone] Is it OK to leave a confidential [...] 2:48pm SENDY MIRAMONTES wrote: mailed to patient CIGAR MAKING SUPERVISOR documented in this encounter Plan of Treatment Not on filedocumented as of this encounter Visit Diagnoses Not on filedocumented in this encounter Care Teams Network Developer Relationship Specialty Start Date End Date Titus Medina MD PCP - General 09/16/1996 03/17/15 documented as of this encounter
--- OUTSIDE RECORDS SUMMARY | 2022-07-30 20:27 | XMS_ITS | Encounter Summary ---
:1945 Author Organization [employer] Address [address] [place] [address] Care Team Providers Name Role Phone Titus Medina MD Primary Care Provider Encounter Details Date Type Department Care Team Description 03/23/2007 Nursing Visit [facility] Nando Holt MD [address] [place] [address] [place] [address] [phone] Social History Tobacco Use Types Packs/Day Years [...] on filedocumented in this encounter Care Teams Science Interpreter Relationship Specialty Start Date End Date Titus Medina MD PCP - General 09/16/1996 03/17/15 documented as of this encounter
--- OUTSIDE RECORDS SUMMARY | 2022-07-30 20:27 | XMS_ITS | Encounter Summary ---
:1945 Author Organization [facility] Address [address] [place] [address] Care Team Providers Name Role Phone Titus Medina MD Primary Care Provider Reason for Visit Reason Comments Other Encounter Details Date Type Department Care Team Description [facility]2007 [facility] [address] [place] [address] Social History Tobacco Use Types [...] Filed: 01/21/11820 Note Time: 08/16/071348 Status: Signed Photogrammetry Airplane Pilot: Ramin Barros RN (Registered Nurse) Patient left a message on voice mail asking when she can take Tylenol as she became sick with Aleve. I called back and left a message that she can take Tylenol up 2 regular every 4 hours not to exceed 2000 mg daily. Created on 16Aug2007 1:49pm by RAMIN BARROS EOLOGIST CLASSICAL documented in this encounter Plan of Treatment Not on filedocumented as of this encounter Visit Diagnoses Not on filedocumented in this encounter Care Teams Optician Apprentice Relationship Specialty Start Date End Date Titus Medina MD PCP - General 09/16/1996 03/17/15 documented as of this encounter
--- OUTSIDE RECORDS SUMMARY | 2022-07-30 20:27 | XMS_ITS | Encounter Summary ---
:1945 Author Organization [facility] Address [address] [place] [address] Care Team Providers Name Role Phone Titus Medina MD Primary Care Provider Encounter Details Date Type Department Care Team Description 05/29/2007 Office Visit [facility] 38[address] Urgent Adan Garcia MD Care [address] [facility] [address] [facility] [place] [address] [place], [place] [address] [phone] Social History Tobacco Use Types Packs/Day Years [...] 01/23/112120 Note Time: 05/29/07 0001 Status: Signed Reclamation Worker: Elsi Garcia MD (Physician) NAME: YIMI GARCIA MR#: [id number] ACCT: [id number] VISIT: [id number] DICTATING CLINICIAN: ELSI GARCIA MD JOB: [id number] LOC: 420 CLINIC PROGRESS NOTE DATE OF [...] more problems, recommended to let us know. [facility]:[id number] C: 05/30/07 09:33 DOCUMENT: [id number] documented in this encounter Plan of Treatment [...] and the talonavicular joint with narrowing. MT/car [id number] Dictating STEFANO ZENG RADIOLOGIST Procedure Note Stefano Alvares - 12/05/2016Formatting o f this note might be different from the original. HISTORY: Pain after falling yesterday. FINDINGS: No acute bone or joint abnorma lity. There is some spurring of the calcaneus. Mild degenera tive changes are scattered about several of the IP joints of the di gits and the talonavicular joint with narrowing. MT/car [id number] Dictating STEFANO ZENG RADIOLOGIST Adan Garcia MD RAD GD documented in this encounter Visit Diagnoses Not on filedocumented in this encounter Care Teams Top Stitcher Relationship Specialty Start Date End Date Titus Medina MD PCP - General 09/16/1996 03/17/15 documented as of this encounter
--- OUTSIDE RECORDS SUMMARY | 2022-07-30 20:27 | XMS_ITS | Encounter Summary ---
:1945 Author Organization [facility] Address [address] [place] [address] Care Team Providers Name Role Phone No Primary/Referring, Phy Primary Care Provider Unavailable Encounter Details Date Type Department Care Team Description 04/07/2007 Notes/Orders CONVERSION CONVERSION Conversion , User G[place] [address] Social History Tobacco Use Types Packs/Day Years [...] on filedocumented in this encounter Care Teams Advertising Agent Relationship Specialty Start Date End Date No Primary/Referring, Phy PCP - General 03/18/15 documented as of this encounter
--- OUTSIDE RECORDS SUMMARY | 2022-07-30 20:27 | XMS_ITS | Encounter Summary ---
:1945 Author Organization [facility] Address [address] [place] [address] Care Team Providers Name Role Phone Titus Medina MD Primary Care Provider Encounter Details Date Type Department Care Team Description 04/29/2007 Office Visit [facility] Son Malloy MD [address] [facility] 39[address] [place], [place] [address] [address] [place] [address] (Wo rk) Social History Tobacco [...] 01/23/112045 Note Time: 04/29/07 0001 Status: Signed Fitting Room Associate: Son Malloy MD (Physician) NAME: YIMI GARCIA MR#: [id number] ACCT: [id number] VISIT: [id number] DICTATING CLINICIAN: SON MALLOY MD JOB: [id number] LOC: 311 CLINIC PROGRESS NOTE DATE OF [...] side. She is scheduled to go to [facility] in a few weeks and she said [...] how her symptoms progress during this time. PRD:[id number] C: 04/30/07 10:28 DOCUMENT: [id number] documented in this encounter Plan of Treatment Not on filedocumented as of this encounter Visit Diagnoses Not on filedocumented in this encounter Care Teams Middle School Librarian Relationship Specialty Start Date End Date Titus Medina MD PCP - General 09/16/1996 03/17/15 documented as of this encounter
--- OUTSIDE RECORDS SUMMARY | 2022-07-30 20:27 | XMS_ITS | Encounter Summary ---
:1945 Author Organization [employer] Address [address] [place] [address] Care Team Providers Name Role Phone Titus Medina MD Primary Care Provider Encounter Details Date Type Department Care Team Description 04/18/2007 PN Conversion Only [facility] [address] [place], [place] [address] Social History Tobacco Use Types [...] in this encounter Care Teams Sales And Marketing Analyst Relationship Specialty Start Date End Date Titus Medina MD PCP - General 09/16/1996 03/17/15 documented as of this encounter
--- OUTSIDE RECORDS SUMMARY | 2022-07-30 20:27 | XMS_ITS | Encounter Summary ---
:1945 Author Organization [facility] Address [address] [place] [address] Care Team Providers Name Role Phone Titus Medina MD Primary Care Provider Encounter Details Date Type Department Care Team Description 05/30/2007 PN Conversion Only EXT JS DEVELOPER [address] [place] [address] Social History Tobacco Use Types Packs/Day Years Used Date Smoking Tobacco: Never Assessed Sex Assigned at Date Recorded Not on file documented as of this encounter Plan of Treatment Not on filedocumented as of this encounter Visit Diagnoses Not on filedocumented in this encounter Care Teams Sales And Marketing Coordinator Relationship Specialty Start Date End Date Titus Medina MD PCP - General 09/16/1996 03/17/15 documented as of this encounter
--- OUTSIDE RECORDS SUMMARY | 2022-07-30 20:27 | XMS_ITS | Encounter Summary ---
:1945 Author Organization [facility] Address [address] [place] [address] Care Team Providers Name Role Phone Titus Medina MD Primary Care Provider Encounter Details Date Type Department Care Team Description 05/30/2007 PN Conversion Only GRAPHIC ARTIST [address] [place] [address] Social History Tobacco Use Types Packs/Day Years Used Date Smoking Tobacco: Never Assessed Sex Assigned at Date Recorded Not on file documented as of this encounter Plan of Treatment Not on filedocumented as of this encounter Visit Diagnoses Not on filedocumented in this encounter Care Teams Jalousie Installer Relationship Specialty Start Date End Date Titus Medina MD PCP - General 09/16/1996 03/17/15 documented as of this encounter
--- OUTSIDE RECORDS SUMMARY | 2022-07-30 20:27 | XMS_ITS | Encounter Summary ---
:1945 Author Organization [facility] Address [address] [place] [address] Care Team Providers Name Role Phone Titus Medina MD Primary Care Provider Reason for Visit Reason Comments Other Encounter Details Date Type Department Care Team Description 09/30/2007 Telephone [facility] Ramon Rucker MD Other [address] [place] [address] [place], [place] (Wo rk) Social History Tobacco Use Types Packs/Day Years Used Date Smoking Tobacco: Never Assessed Sex Assigned at Date Recorded Not on file documented as of this encounter [facility], Message - 09/30/2007 4:45 PM CST Phone Note filed by Cortrium at 01/21/11 112 Author: Cortrium Service: (none) Author Type: (none) Filed: 01/21/111121 Note Time: 09/30/07 1645 Status: Signed Senior Partner: Cortrium Non -Symptom Message from Front Line Caller Name/Relationship:self Primary Manager Operations And Procurement:Dr Pavon Message:Please call Drs. albrecht at [facility] and give them pt's prescriptions. Prescriptions are Estradiol o.01 per cent cream, Pramoxine 1 per cent hydrocortisone 1 per cent foam, Hydroxyzine HCL 25 mg tablets 350 quantity. Could you authorize 3 months at once for financial reasons. Physicians Line is [phone]. Cash Applications Specialist: Best call back number:[phone] patient Is it OK to leave a confidential message on this voicemail?yes *ECODE~PNMSG2 Created on 30Sep2007 4:45pm by ENID WILKINS On 03Oct2007 1:57pm KENNEDY BRITO wrote: Please fax to Get Me Listed Seq#[phone] On 03Oct2007 2:12pm RAMON SMART wrote: faxed Acknowledged by RAMON SMART on 2:12pm ORATE DIRECTOR TALENT ASSESSMENT documented in this encounter Plan of Treatment Not on filedocumented as of this encounter Visit Diagnoses Not on filedocumented in this encounter Care Teams Toxics Program Officer Relationship Specialty Start Date End Date Titus Medina MD PCP - General 09/16/1996 03/17/15 documented as of this encounter
--- OUTSIDE RECORDS SUMMARY | 2022-07-30 20:27 | XMS_ITS | Encounter Summary ---
:1945 [facility] Address [address] [address] Care Team Providers Name Role Phone Titus Medina MD Primary Care Provider Reason for Visit Reason Comments Other Encounter Details Date Type Department Care Team Description 03/09/2007 Telephone [facility], Message Other [address] , [address] [place] [address] Social History Tobacco Use Types [...] Filed: 01/20/112154 Note Time: 03/09/07857 Status: Signed Iv Therapy Nurse: Ramin Barros RN (Registered Nurse) Patient calling and is ready to have her Colonoscopy and would like a referral and she will call and schedule herself. Will notify patient when referral is done at [phone]. Please forward esha Bear when done. Created on 09Mar2007 8:58am by RAMIN BARROS On 09Mar2007 12:03pm JATINDER DAVENPORT wrote: OK for screening colonoscopy Acknowledged by JATINDER DAVENPORT on 12:03pm On 09Mar2007 12:56pm ANAT TANG wrote: Left message for Ramona to call me back. Acknowledged by ANAT TANG on 12:56pm On 11Mar2007 3:05pm ANAT TANG wrote: Will schedule Colonoscopy at [facility]. Acknowledged by ANAT TANG on 3:05pm R SWITCH OPERATOR documented in this encounter Plan of Treatment Not on filedocumented as of this encounter Visit Diagnoses Not on filedocumented in this encounter Care Teams Analytical Lab Analyst Relationship Specialty Start Date End Date Titus Medina MD PCP - General 09/16/1996 03/17/15 documented as of this encounter
--- OUTSIDE RECORDS SUMMARY | 2022-07-30 20:27 | XMS_ITS | Encounter Summary ---
:1945 Author Organization [facility] Address [address] [place] [address] Care Team Providers Name Role Phone Titus Medina MD Primary Care Provider Encounter Details Date Type Department Care Team Description 09/01/2007 PN Conversion Only RASTAFARIAN CONVERSION Margot Pavon MD [address] [place] [address] (Wo rk) Social History Tobacco Use Types Packs/Day Years Used Date Smoking Tobacco: Never Assessed Sex Assigned at Date Recorded Not on file documented as of this encounter Plan of Treatment Not on filedocumented as of this encounter Procedures Procedure Name Priority Date/Time Associated Comments Diagnosis GLUCOSE Routine 09/01/2007 4:57 PM Results f or this AIR MOTOR REPAIRER procedure are i n the results section. HEMOGLOBIN, BLOOD Routine 09/01/2007 4:57 PM Resu lts for this AIR MOTOR REPAIRER procedure are i n the results section. POTASSIUM Routine 09/01/2007 4:57 PM Results f or this AIR MOTOR REPAIRER procedure are i n the results section. ANATOMICAL PATH Routine 09/01/2007 1:02 PM Result s for this LIQUID BASED AIR MOTOR REPAIRER procedure are i n the results section. documented in this encounter Results Potassium (09/01/2007 4:57 PM AIR MOTOR REPAIRER) P athologist Signature Potassium 4.5 3.5 - 5.2 HP CONVERSION mEq/L Specimen (Source) Anatomical Collection Method Collection Time Re ceived Time Location / / Volume Laterality 09/01/2007 4:57 PM AIR MOTOR REPAIRER Margot Pavon MD LAB_1 Performing Organization Address City/[facility]/ZIP Code Phon e Number HP CONVERSION Glucose (09/01/2007 4:57 PM AIR MOTOR REPAIRER) P athologist Signature Lab Glucose 97 60 - 100 HP CONVERSION mg/dL Specimen (Source) Anatomical Collection Method Collection Time Re ceived Time Location / / Volume Laterality 09/01/2007 4:57 PM AIR MOTOR REPAIRER Margot Pavon MD LAB_1 Performing Organization Address City/State/ZIP Code Phon e Number HP CONVERSION Hemoglobin, Blood (09/01/2007 4:57 PM AIR MOTOR REPAIRER) athologist Signature Hemoglobin 14.4 11.8 - 15.5 HP CONVERSION gm/dL Specimen (Source) Anatomical Collection Method Collection Time Re ceived Time Location / / Volume Laterality 09/01/2007 4:57 PM AIR MOTOR REPAIRER Margot Pavon MD LAB_1 Performing Organization Address [facility] Code Phon e Number HP CONVERSION Pap Smear (09/01/2007 1:02 PM AIR MOTOR REPAIRER) [facility] gist Method Time Signature PAP Smear SEE TEXT No normal HP CONVERSION Liquid Based range Comment: Patient: YIMI GARCIA ? CERVICAL CYTOLOGY REPORT Pathology # ??[id number] ?Date Obtained: ? Date Received: CYTOLOGIC IMPRESSION: Negative for intraepithelial lesion or m alignancy. Verified 09/07/07 by: ??MB ? (electronic signature) ? BRODERICK TIONAL DATA LMP: CLINICAL HIST LIQUID BASED PAP CERVICAL SPECIMEN ADEQUACY: ?? Satisfactory. ENDOCERVICAL CELLS: ??Absent; patient is post-menopausal. Specimen (Source) Anatomical Collection Method Collection Time Re ceived Time Location / / Volume Laterality 09/01/2007 1:02 PM AIR MOTOR REPAIRER Margot Pavon MD LAB_1 Performing Organization Address City/State/ZIP Code Phon e Number HP CONVERSION documented in this encounter Visit Diagnoses Not on filedocumented in this encounter Care Teams Guardian Ad Litem Relationship Specialty Start Date End Date Titus Medina MD PCP - General 09/16/1996 03/17/15 documented as of this encounter
--- OUTSIDE RECORDS SUMMARY | 2022-07-30 20:27 | XMS_ITS | Encounter Summary ---
:1945 Author Organization [facility] Address [address] [place] [address] Care Team Providers Name Role Phone Titus Medina MD Primary Care Provider Reason for Visit Reason Comments Other Encounter Details Date Type Department Care Team Description 09/22/2007 Telephone [facility], Message Other [address] [place], [place] [address] Social History Tobacco Use Types Packs/Day Years Used Date Smoking Tobacco: Never Assessed Sex Assigned at Date Recorded Not on file documented as of this encounter [facility], Message - 09/22/2007 4:00 PM CST Phone Note filed by 3Jam at 01/21/11 9174 Author: 3Jam Service: (none) Author Type: (none) Filed: 01/21/110 Note Time: 09/22/07 1600 Status: Signed Oil Well Gun Perforator Operator: 3Jam Non -Symptom Message from Front Line Caller Name/Relationship:self Primary Quality Control Microbiology Supervisor:Dr Pavon Message:pt had hip replacement surgery at [facility] on Sep 20, and tomorrow she will be discharged to [facility]. Could Dr Pavon follow her by phone with directions otherwise they will appoint someone. She prefers Dr Pavon, Interactive Account Manager: Best call back number:[phone] ,. 169 Is it OK to leave a confidential message on this voicemail?no *ECODE~PNMSG2 Created on 22Sep2007 4:00pm by ENID WILKINS On 22Sep2007 4:05pm RAIMN BARROS wrote: Please advise. On 22Sep2007 4:08pm ENID WILKINS wrote: Pt . called with a new phone number she can be reached at--[phone]. On 23Sep2007 11:44am JATINDER PAVON wrote: I think she'd do better to have the doctor there manage her temporarily, & I'll resume care when she leaves. Acknowledged by JATINDER PAVON on 11:44am On 23Sep2007 1:12pm RAMIN BARROS wrote: residential staff notified. STRIAL PROPERTY APPRAISER documented in this encounter Plan of Treatment Not on filedocumented as of this encounter Visit Diagnoses Not on filedocumented in this encounter Care Teams Tanker Driver Relationship Specialty Start Date End Date Titus Medina MD PCP - General 09/16/1996 03/17/15 documented as of this encounter
--- OUTSIDE RECORDS SUMMARY | 2022-07-30 20:27 | XMS_ITS | Encounter Summary ---
:1945 Author Organization [employer] Address [address] [place] [address] Care Team Providers Name Role Phone Titus Medina MD Primary Care Provider Encounter Details Date Type Department Care Team Description 03/16/2007 Office Visit [facility] Mark Coleman, [address], [facility] [address] [place] [address] [place], [place] [address] (Wo rk) Social History [...] in this encounter Progress Notes Mark Arriaza, [facility] - 03/16/2007 12:01 AM CDT Progress Notes signed by Danish Sterling MD at 04/07/07 0920 Author: SILAS Yun Service: (none) Author Type: Physician Filed: 01/23/111954 Note Time: 03/16/072015 Status: Signed Furnace Installer: SILAS Yun (Physician) NAME: YIMI GARCIA MR#: [id number] ACCT: [id number] VISIT: [id number] DICTATING CLINICIAN: MARK ARRIAZA MD JOB: [id number] LOC: 2602 CLINIC PROGRESS NOTE DATE OF [...] Dr Emilio Carver / Rob [place]. PLAN: [id number] C: 03/17/07 12:04 DOCUMENT: [id number] sab ETRICIAN documented in this encounter Plan of Treatment Not on filedocumented as of this encounter Visit Diagnoses Not on filedocumented in this encounter Care Teams Band Splitter Relationship Specialty Start Date End Date Titus Medina MD PCP - General 09/16/1996 03/17/15 documented as of this encounter
--- OUTSIDE RECORDS SUMMARY | 2022-07-30 20:27 | XMS_ITS | Encounter Summary ---
:1945 Author Organization [facility] Address [address] [place] [address] Care Team Providers Name Role Phone Titus Medina MD Primary Care Provider Encounter Details Date Type Department Care Team Description 03/02/2007 Hospital Encounter MANDAEISM CONVERSION Pascual Parker MD Social History Tobacco [...] filedocumented in this encounter Care Teams Conveyor Technician Relationship Specialty Start Date End Date Titus Medina MD PCP - General 09/16/1996 03/17/15 documented as of this encounter
--- OUTSIDE RECORDS SUMMARY | 2022-07-30 20:27 | XMS_ITS | Encounter Summary ---
:1945 Author Organization [facility] Address [address] [place] [address] Care Team Providers Name Role Phone Titus Medina MD Primary Care Provider Encounter Details Date Type Department Care Team Description 09/19/2007 [facility] Kevin Rivera Facesheet [address] [place] [address] [address] [place] [address] (Wo rk) Social History Tobacco Use Types Packs/Day Years Used Date Smoking Tobacco: Never Assessed Sex Assigned at Date Recorded Not on file documented as of this encounter Procedure Notes Kevin Rivera MD - 09/19/2007 12:00 AM CSTAssociated Order(s): LAB IP documented in this encounter Plan of Treatment Not on filedocumented as of this encounter Procedures Procedure Name Priority Date/Time Associated Diagnosis Comme nts LAB IP 09/19/2007 12:00 AM Results for this OPEN SHANK COVERER procedure are i n the results section . documented in this encounter Results LAB IP (09/19/2007 12:00 AM OPEN SHANK COVERER) Narrative This result has an attachment that is no t available. Transcriptions Kevin Rivera MD - 09/19/2007 12 :00 AM CST Kevin Rivera MD DUMMY/OTHER/AR documented in this encounter Visit Diagnoses Not on filedocumented in this encounter Care Teams Event Designer Relationship Specialty Start Date End Date Titus Medina MD PCP - General 09/16/1996 03/17/15 documented as of this encounter
--- OUTSIDE RECORDS SUMMARY | 2022-07-30 20:27 | XMS_ITS | Encounter Summary ---
:1945 Author Organization [facility] Address [address] [place] [address] Care Team Providers Name Role Phone Titus Medina MD Primary Care Provider Encounter Details Date Type Department Care Team Description 05/30/2007 Office Visit CONV [id number] Mery Renner MD [address] [place] [address] [place] [address] (Wo rk) Social History Tobacco [...] 01/23/112121 Note Time: 05/30/07 0001 Status: Signed Enterprise Data Architect: Mery Weber MD (Physician) NAME: YIMI GARCIA MR#: [id number] ACCT: [id number] VISIT: [id number] DICTATING CLINICIAN: MERY WEBER MD JOB: [id number] LOC: 458 CLINIC PROGRESS NOTE DATE OF [...] V-beam would improve the redness and the kraewjkl-griew-tdxkzo appearance of her skin. We discussed the [...] Elda. Was given a prescription for acyclovir. GABRIELLE:[id number] C: 05/31/07 09:48 DOCUMENT: [id number] documented in this encounter Plan of Treatment Not on filedocumented as of this encounter Visit Diagnoses Not on filedocumented in this encounter Care Teams Globe Mounter Relationship Specialty Start Date End Date Titus Medina MD PCP - General 09/16/1996 03/17/15 documented as of this encounter
--- OUTSIDE RECORDS SUMMARY | 2022-07-30 20:27 | XMS_ITS | Encounter Summary ---
:1945 Author Organization [employer] Address [address] [place] [address] Care Team Providers Name Role Phone Titus Medina MD Primary Care Provider Reason for Visit Reason Comments HIP PAIN--ED Encounter Details Date Type Department Care Team Description 10/31/2007 Emergency [facility] Martíenz Bajwa MD [address] [place] [address] Hip Dislocation 640 [facility] Sylvia Savage MD [address] [place], [place] [address] [place] [address] Social History Tobacco Use Types Packs/Day Years Used Date Smoking Tobacco: Never Assessed Sex Assigned at Date Recorded Not on file documented as of this encounter Last Filed Vital Signs Vital Sign Reading Time Taken Comments Blood Pressure 158/86 10/31/2007 6:39 PM BRAND DEVELOPMENT MANAGER Pulse 78 10/31/2007 6:39 PM BRAND DEVELOPMENT MANAGER Temperature 36.1 ??C (97 ??F) 10/31/2007 1:05 PM BRAND DEVELOPMENT MANAGER Respiratory Rate 16 10/31/2007 6:39 PM BRAND DEVELOPMENT MANAGER Oxygen Saturation 99% 10/31/2007 6:39 PM BRAND DEVELOPMENT MANAGER Inhaled Oxygen Concentration - - Weight - - Height - - Body Mass Index - - documented in this encounter Discharge Instructions Discharge InstructionsThNanda barnes 10/31/2007 5:01 PM BRAND DEVELOPMENT MANAGER Dear Ms. Garcia, Thank you for choosing [facility] for your emergency medical needs. You [...] would like to be seen in a Count includes the [facility] clinic, please call the [facility] Appointment Desk at [phone] anytime between 7:00 AM and 9:00 PM, 7 days a week, 365 days a year (Hearing Impaired: ). Please bring these instructions with you when you are seen in your follow-up appointment. Co-pays for this visit may be paid for at the discharge desk. D DEVELOPMENT MANAGER AttachmentsThe following attachments cannot be sent through [...] patient's side and is driving patient home. D DEVELOPMENT MANAGER Jayda Abdi - 10/31/2007 5:55 PM CST Knee immobilizer placed by ERT and EDRN. Patient stood up, had episode of nausea, sat down and begandry heaving. notified and patient medicated for nausea. Will attempt crutch teaching when nausea subsides. Son at bedside. D DEVELOPMENT MANAGER Nanda Patel V - 10/31/2007 5:02 PM BRAND DEVELOPMENT MANAGER VISIT DATE: 10/31/2007 CHIEF COMPLAINT: Hip pain. HISTORY OF PRESENT ILLNESS: This is a 62-year-old female with a previous history of fracture statuspost right hip surgery on 09/20/2007 at [facility], previous orthopedics in Dr. Kevin Rivera of [facility] here with acute onset of right [...] No obvious rashes. Results reviewed as in [facility]. MEDICAL DECISION MAKING: This is a 62-year-old [...] given a hip adduction pillow for nights. [facility] was consulted who recommended followup in [...] Nanda Patel MD Staff: Martínez Bajwa MD [facility] Dictated: 10/31/2007 17:02:46 Transcribed: 10/31/2007 17:47:54 Doc #: [id number] cc:Titus Medina MD, Primary Physician 1 Page 2 Patient Name: RAMONA GARCIA Visit Date: 10/31/2007 EMERGENCY MEDICINE NOTE CONFIDENTIAL MEDICAL RECORD [address] [address] Page 1 Patient: RAM[id number] Date of : 1945 Age: 62Y Visit Date: 10/31/2007 EMERGENCY MEDICINE NOTE Jayda Abdi - 10/31/2007 4:28 PM CST Patient A/O x 4. Speaks full sentences. To xray. D DEVELOPMENT MANAGER Jayda Abdi - 10/31/2007 4:03 PM CST Hip abduction pillow placed by ERT and EDRN. CMS intact. Cap refill <3. Skin pink cool and dry. +dorsalis pedis pulse. D DEVELOPMENT MANAGER Martínez Bajwa - 10/31/2007 3:56 PM CST I was present for burgos portion of Procedural Sedation and Reduction [facility] D DEVELOPMENT MANAGER Jayda Abdi - 10/31/2007 3:44 PM CST Report received from Maddie Houston RN. Care assumed. Procedural sedation performed for hip reduction. See procedural sedation flowsheet for medications administered and vital signs. Patient tolerated well. D DEVELOPMENT MANAGER Latoya Hdz - 10/31/2007 3:19 PM CST Report given to Jayda Shaffer RN. D DEVELOPMENT MANAGER Latoya Hdz - 10/31/2007 3:06 PM CST Pt back from Xray and the MD is in the room explaining the results of the xray and procedure. D DEVELOPMENT MANAGER Latoya Hdz - 10/31/2007 2:13 PM CST Pt to Xray D DEVELOPMENT MANAGER Latoya Hdz - 10/31/2007 1:28 PM CST Pt c/o no relief with pain medications. The pt was medicated with 1mg Dilaudid and 4mg Zofran. + Pedal pulse to the right foot. D DEVELOPMENT MANAGER Martínez Bajwa - 10/31/2007 1:20 PM CST [facility] Emergency Department Attending Supervision Note Martínez [...] a 62 yr female presenting to the [facility] ED with R hip pain. Pt s/p minimally invasive hip replacement last month at [place]. Today bent to shave legs, +pain. Exam: [...] had R hip surgery on 09/20/07 at [facility].Today she was sitting on the side of her bathtub shaving her legs, she lifted her right knee up and felt a sudden onset of pain, feels as though the hip dislocated. Pt in acute pain. Good CMS. in room now evaluating. Medics gave pt 100mcg Fentanyl, 2mg Versed and 4mg Zofran. D DEVELOPMENT MANAGER documented in this encounter Plan of Treatment Not on filedocumented as of this encounter Procedures Procedure Name Priority Date/Time Associated Diagnosis Comme nts AP PELVIS & RT. Routine 10/31/2007 4:34 PM Result s for this LATERAL HIP BRAND DEVELOPMENT MANAGER procedure are i n (TRAUMA) the results section. AP PELVIS & RT. Routine 10/31/2007 2:28 PM Result s for this LATERAL HIP BRAND DEVELOPMENT MANAGER procedure are i n (TRAUMA) the results section. documented in this encounter Results AP PELVIS & RT. LATERAL HIP (TRAUMA) (10/31/2007 4:34 PM BRAND DEVELOPMENT MANAGER) Anatomical Region Laterality Modality Other Specimen (Source) Anatomical Collection Method Collection Time Re ceived Time Location / / Volume Laterality 10/31/2007 4:34 PM BRAND DEVELOPMENT MANAGER Narrative 11/01/2007 1:16 PM BRAND DEVELOPMENT MANAGER relocation, post reduction: TRAUMA . AP PELVIS [...] RT. LATERAL HIP (TRAUMA) (10/31/2007 2:28 PM BRAND DEVELOPMENT MANAGER) Anatomical Region Laterality Modality Other Specimen (Source) Anatomical Collection Method Collection Time Re ceived Time Location / / Volume Laterality 10/31/2007 2:28 PM BRAND DEVELOPMENT MANAGER Narrative 11/01/2007 8:58 AM BRAND DEVELOPMENT MANAGER frx, dislocation: TRAUMA . AP PELVIS AND [...] injection 5 mg Given 10/31/2007 2:00 PM BRAND DEVELOPMENT MANAGER 5 mg 5 mg, Intravenous, NOW, On Wed10/31/07 at 1348, For 1 dose, rate of IV push: do not exceed, in children 1-2 mg/min; in adults 5 mg/min HYDROmorphone (DILAUDID) injection 2 mg Given 10/31/2007 1:24 PM BRAND DEVELOPMENT MANAGER 1 mg 2 mg, Intravenous, NOW, 1 dose, On Wed10/31/07 at 1315 Given 10/31/2007 1:08 PM BRAND DEVELOPMENT MANAGER 1 mg metoCLOPRAMIDE (REGLAN) injection 10 mg Given 10/31/2007 5:55 PM BRAND DEVELOPMENT MANAGER 10 mg 10 mg, Intravenous, NOW, On Wed10/31/07 at 1748, For 1 dose ondansetron (ZOFRAN) injection 4 mg Given 10/31/2007 1:15 PM BRAND DEVELOPMENT MANAGER 4 mg 4 mg, Intravenous, NOW, On Wed10/31/07 at 1315, For 1 dose ondansetron (ZOFRAN) injection 4 mg Given 10/31/2007 3:20 PM BRAND DEVELOPMENT MANAGER 4 mg 4 mg, Intravenous, NOW, On Wed10/31/07 at 1549, For 1 dose documented in this encounter Active and Recently Administered Medications Times are shown in BRAND DEVELOPMENT MANAGER. Scheduled Medication Order 10/29/2007 10/30/2007 10/31/2007 DIAZEpam [...] dose documented in this encounter Care Teams Asset Protection Lead Relationship Specialty Start Date End Date Titus Medina MD PCP - General 09/16/1996 03/17/15 documented as of this encounter
--- OUTSIDE RECORDS SUMMARY | 2022-07-30 20:27 | XMS_ITS | Encounter Summary ---
:1945 Author Organization [facility] Address [address] [place] [address] Care Team Providers Name Role Phone Titus Medina MD Primary Care Provider Encounter Details Date Type Department Care Team Description 09/01/2007 Office Visit [facility] Jatinder Hi MD [address] [employer] [address] [place] [id number] [phone] Social History Tobacco Use Types Packs/Day Years [...] 2322 Note Time: 09/01/07 0001 Status: Signed Sketcher: Jatinder Pavon MD (Physician) NAME: YIMI GARCIA MR#: [id number] ACCT: [id number] VISIT: [id number] DICTATING CLINICIAN: JATINDER PAVON MD JOB: [id number] LOC: 2602 CLINIC PROGRESS NOTE DATE OF VISIT: 09/01/2007 SUBJECTIVE: Chief complaint: Physical. Qpsjf-jpg-paeh-old female here for routine physical. She also is going to be having a minimally invasive hip replacement surgery on 09/[address] Rivera at [facility] and then a preoperative H+P is done [...] screenings. She will follow up with p.rmiah BARBOSA:[id number] C: 09/28/07 14:36 DOCUMENT: [id number] ERCIAL ESTIMATOR documented in this encounter Plan of Treatment Not on filedocumented as of this encounter Visit Diagnoses Not on filedocumented in this encounter Care Teams Section Cutter Relationship Specialty Start Date End Date Titus Medina MD PCP - General 09/16/1996 03/17/15 documented as of this encounter
--- OUTSIDE RECORDS SUMMARY | 2022-07-30 20:27 | XMS_ITS | Encounter Summary ---
:1945 Author Organization [facility] Address [address] [place] [address] Care Team Providers Name Role Phone Titus Medina MD Primary Care Provider Encounter Details Date Type Department Care Team Description 03/23/2007 Office Visit [facility] Jatinder Hi MD [address] [place] [id number] [phone] Social History Tobacco Use Types Packs/Day Years Used Date Smoking Tobacco: Never Assessed Sex Assigned at Date Recorded Not on file documented as of this encounter Progress Notes Jatinder Pavon MD - 03/23/2007 12:01 AM CDT Progress Notes signed by Jatinder Pavon MD at 04/12/07 1650 Author: Jatinder Pavon MD Service: (none) Author Type: Physician Filed: 01/23/112003 Note Time: 03/23/07 0001 Status: Signed Punch Molder: Jatinder Pavon MD (Physician) NAME: YIMI GARCIA MR#: [id number] ACCT: [id number] VISIT: [id number] DICTATING CLINICIAN: JATINDER PAVON MD JOB: [id number] LOC: 2602 CLINIC PROGRESS NOTE DATE OF [...] surgical candidate. She is also referred to [facility] for colonoscopy. FAMILIA:[id number] C: 04/12/07 11:39 DOCUMENT: [id number] documented in this encounter Plan of Treatment Not on filedocumented as of this encounter Visit Diagnoses Not on filedocumented in this encounter Care Teams Sales Account Coordinator Relationship Specialty Start Date End Date Titus Medina MD PCP - General 09/16/1996 03/17/15 documented as of this encounter
--- OUTSIDE RECORDS SUMMARY | 2022-07-30 20:27 | XMS_ITS | Encounter Summary ---
:1945 Author Organization [facility] Address [address] [place] [address] Care Team Providers Name Role Phone Titus Medina MD Primary Care Provider Reason for Visit Reason Comments Other Encounter Details Date Type Department Care Team Description 10/25/2007 Telephone [facility] Sendy Conti Other [address] [facility] [address] [place], [place] [address] Social History Tobacco Use Types Packs/Day Years Used Date Smoking Tobacco: Never Assessed Sex Assigned at Date Recorded Not on file documented as of this encounter Progress Notes Sendy Juarez - 10/25/2007 2:07 PM CST Phone Note filed by Sendy Juarez MA at 01/21/11 1142 Author: Sendy Juarez MA Service: (none) Author Type: Welder Shielded Metal Arc Filed: 01/21/11 6415 Note Time: 10/25/071406 Status: Signed Tetryl Wringer Operator: Sendy Juarez MA (Welder Shielded Metal Arc) patient needs refill of atelin nasal spray. uses [facility]. please print and will fax to [phone] Created on 25Oct2007 2:07pm by SENDY JUAREZ On 25Oct2007 3:11pm JATINDER DAVENPORT wrote: printed Acknowledged by JATINDER DAVENPORT on 3:11pm On 25Oct2007 3:14pm SENDY JUAREZ wrote: faxed LE PET GROOMER documented in this encounter Plan of Treatment Not on filedocumented as of this encounter Visit Diagnoses Not on filedocumented in this encounter Care Teams Food Service Helper Relationship Specialty Start Date End Date Titus Medina MD PCP - General 09/16/1996 03/17/15 documented as of this encounter
--- OUTSIDE RECORDS SUMMARY | 2022-07-30 20:27 | XMS_ITS | Encounter Summary ---
:1945 Author [facility] Address [address], [place] [address] Care Team Providers Name Role Phone Titus Medina MD Primary Care Provider Reason for Visit Reason Comments Other Encounter Details Date Type Department Care Team Description 06/10/[address] Yunior Corado RN Other Medicine [address] [place] [address] Social History Tobacco Use Types Packs/Day Years Used Date Smoking Tobacco: Never Assessed Sex Assigned at Date Recorded Not on file documented as of this encounter Progress Notes Yunior Corado RN - 06/10/2007 6:44 PM CDT Phone Note filed by Yunior Corado RN at 01/21/11347 Author: Yunior Corado RN Service: (none) Author Type: Registered Nurse Filed: 01/21/11347 Note Time: 06/10/071843 Status: Signed Senior Data Analyst: Yunior Corado RN (Registered Nurse) CLINICIAN FOLLOW-UP: None IMPRESSION: Skin trauma SEMI-URGENT SYMPTOMS: Symptoms of infection, increased redness, purulent drainage. Additional Symptoms: Pt fell on 05/28 and sustained multiple injuries. Seen in UC the next day. The left knee continues to have an open wound that doesn't scab over or look like it's healing at all. Pt states The wound is still open. Sometimes the wound oozes purulent drainage and other times it secretes clear fluids. Pt has applied OTC antibiotic ointment and a Cow salve. Now a Rash has broken out on the skin around the wound. There are Dots around the wound that look like pimples. Pt suspects the rash is allergic reaction from the tape that was securing the dressing. Denies any red lines/streaks running up the leg. Afebrile. In the car at this time on her way to [place]. Asks what she should do for this. Denies any emergent, urgent symptoms PATIENT INFORMATION: Problem List: Reviewed today in [facility] Medications: Reviewed today in [facility] PLAN: SCHEDULE APPOINTMENT WITHIN 12 HOURS. Advised to be seen in an UC or ER tonight or tomorrow at the latest. Patient/Caller agrees with plan and denies additional questions. Reference(s) Used: [facility] Skin Trauma Nursing Reference - Adult, Call Complete. *SH~PNNL~SKIN ~ Created on 10Jun2007 6:44pm by YUNIOR CORADO N RESOURCES DEPARTMENT SUPERVISOR documented in this encounter Plan of Treatment Not on filedocumented as of this encounter Visit Diagnoses Not on filedocumented in this encounter Care Teams Oracle Applications Developer Relationship Specialty Start Date End Date Titus Medina MD PCP - General 09/16/1996 03/17/15 documented as of this encounter
--- OUTSIDE RECORDS SUMMARY | 2022-07-30 20:27 | XMS_ITS | Encounter Summary ---
:1945 Author Organization [facility] Address [address] [place] [address] Care Team Providers Name Role Phone Titus Medina MD Primary Care Provider Encounter Details Date Type Department Care Team Description 03/08/2007 PN Conversion Only [facility] [address] [place], [place] [address] Social History Tobacco Use Types Packs/Day Years Used Date Smoking Tobacco: Never Assessed Sex Assigned at Date Recorded Not on file documented as of this encounter Plan of Treatment Not on filedocumented as of this encounter Visit Diagnoses Not on filedocumented in this encounter Care Teams Money Counter Relationship Specialty Start Date End Date Titus Medina MD PCP - General 09/16/1996 03/17/15 documented as of this encounter
--- OUTSIDE RECORDS SUMMARY | 2022-07-30 20:27 | XMS_ITS | Encounter Summary ---
:1945 Author Organization [facility] Address [address] [place] [address] Care Team Providers Name Role Phone Titus Medina MD Primary Care Provider Encounter Details Date Type Department Care Team Description 07/25/2007 Nursing Visit [facility] Ángel Hale, [address] Abdalla MD [address] [place] [address] [place] [address] [phone] (Wo rk) Social History Tobacco Use Types Packs/Day Years Used Date Smoking Tobacco: Never Assessed Sex Assigned at Date Recorded Not on file documented as of this encounter Plan of Treatment Not on filedocumented as of this encounter Visit Diagnoses Not on filedocumented in this encounter Care Teams Hazardous Material Technician Relationship Specialty Start Date End Date Titus Medina MD PCP - General 09/16/1996 03/17/15 documented as of this encounter
--- OUTSIDE RECORDS SUMMARY | 2022-07-30 20:27 | XMS_ITS | Encounter Summary ---
:1945 Author Organization [facility] Address [address] [place] [address] Care Team Providers Name Role Phone Titus Medina MD Primary Care Provider Encounter Details Date Type Department Care Team Description 03/21/2007 Hospital Encounter [facility] CONVERSION Pascual Parker MD Social History Tobacco [...] on filedocumented in this encounter Care Teams Ase Master Mechanic Relationship Specialty Start Date End Date Titus Medina MD PCP - General 09/16/1996 03/17/15 documented as of this encounter
--- OUTSIDE RECORDS SUMMARY | 2022-07-30 20:28 | XMS_ITS | Encounter Summary ---
:1945 Author Organization [facility] Address [address] [place] [address] Care Team Providers Name Role Phone Titus Medina MD Primary Care Provider Reason for Visit Reason Comments Other Encounter Details Date Type Department Care Team Description 11/09/2006 Telephone [facility], Message Other [address] , [address] [place], [place] [address] Social History Tobacco Use Types Packs/Day Years Used Date Smoking Tobacco: Never Assessed Sex Assigned at Date Recorded Not on file documented as of this encounter [facility], Message - 11/09/2006 4:27 PM CST Phone Note filed by [facility] at 01/20/11 1522 Author: [facility] Service: (none) Author Type: (none) Filed: 01/20/11 1522 Note Time: 11/09/067 Status: Signed Floor Clerk: [facility] Caller Name/Relationship:PHARMACY Reason for Call:refill Callback Phone #:[phone] OK to leave detailed message on voicemail?n Created on 09Nov2006 4:27pm by SUSAN DOUGLAS On 10Nov2006 9:43am KENNEDY BRITO wrote: Called and spoke with a shorty at [facility] [employer] [facility] about the Hydroxyzine which she has refills until 07/10 INTMENT SCHEDULER documented in this encounter Plan of Treatment Not on filedocumented as of this encounter Visit Diagnoses Not on filedocumented in this encounter Care Teams Portable Feed Mill Operator Relationship Specialty Start Date End Date Titus Medina MD PCP - General 09/16/1996 03/17/15 documented as of this encounter
--- OUTSIDE RECORDS SUMMARY | 2022-07-30 20:28 | XMS_ITS | Encounter Summary ---
:1945 Author Organization [facility] Address [address] [place] [address] Care Team Providers Name Role Phone Titus Medina MD Primary Care Provider Reason for Visit Reason Comments Other Encounter Details Date Type Department Care Team Description 12/03/2006 Telephone [facility] [address] [facility], Message Other [address] [place], [place] [id number] Social History Tobacco Use Types Packs/Day Years Used Date Smoking Tobacco: Never Assessed Sex Assigned at Date Recorded Not on file documented as of this encounter Progress Notes Isabell Bliss - 12/03/2006 9:10 AM CST Phone Note filed by Isabell Bliss RN at 01/20/11 1640 Author: Isabell Bliss RN Service: (none) Author Type: (none) Filed: 01/20/11 1640 Note Time: 12/03/0610 Status: Signed Aerial Planting And Cultivation Manager: Imr Conversion RAW pt. possible sinus infection. sinus pressure/pain. bright green nasal drng. fever of 101. sx for about one week. coughing up green as well. cough doesn't keep up at night. meds: hydroxzine 1 bid, astelin 2sp bid, guiafen 1 bid.allergies: none. pharm: kathe manzanares [facility]. pt: [phone] ok to lm. possible antibitics? Created on 03Dec2006 9:10am by ISABELL LARIOS On 03Dec2006 9:19am LATOYA FINCH wrote: Ok to start Septra DS 1 tab bid x 10 days Acknowledged by LATOYA FINCH on 9:19am On 03Dec2006 9:26am ISABELL LARIOS wrote: rx faxed. pt phone busy, unable to leave message. will try back later On 03Dec2006 9:28am ISABELL LARIOS wrote: pt notified RACTIVE ART DIRECTOR documented in this encounter Plan of Treatment Not on filedocumented as of this encounter Visit Diagnoses Not on filedocumented in this encounter Care Teams Stable Manager Relationship Specialty Start Date End Date Titus Medina MD PCP - General 09/16/1996 03/17/15 documented as of this encounter
--- OUTSIDE RECORDS SUMMARY | 2022-07-30 20:28 | XMS_ITS | Encounter Summary ---
:1945 Author Organization [facility] Address [address] [place] [address] Care Team Providers Name Role Phone Titus Medina MD Primary Care Provider Encounter Details Date Type Department Care Team Description 10/15/2006 Office Visit [place] [facility] Adi Jones, Therapy PT [address] [facility] [place], [place] [address] 4 [place] [address] [phone] (Wo rk) Social History Tobacco Use Types Packs/Day Years Used Date Smoking Tobacco: Never Assessed Sex Assigned at Date Recorded Not on file documented as of this encounter Plan of Treatment Not on filedocumented as of this encounter Visit Diagnoses Not on filedocumented in this encounter Care Teams Chief Station Engineer Relationship Specialty Start Date End Date Titus Medina MD PCP - General 09/16/1996 03/17/15 documented as of this encounter
--- OUTSIDE RECORDS SUMMARY | 2022-07-30 20:28 | XMS_ITS | Encounter Summary ---
:1945 Author Organization [facility] Address [address] [place] [address] Care Team Providers Name Role Phone Titus Medina MD Primary Care Provider Encounter Details Date Type Department Care Team Description 12/10/2006 Outreach Clinician Only Brothers Family Margot Pavon MD [facility] [address] [place] [address] [phone] Social History Tobacco Use Types Packs/Day Years Used Date Smoking Tobacco: Never Assessed Sex Assigned at Date Recorded Not on file documented as of this encounter Progress Notes Margot Pavon MD - 12/10/2006 12:01 AM CST Progress Notes signed by Margot Pavon MD at 12/10/06 1110 Author: Margot Pavon MD Service: (none) Author Type: Physician Filed: 01/23/11 1754 Note Time: 12/10/06 0001 Status: Signed Speech Coach: Margot Pavon MD (Physician) December 10, 2006 RE: Ramona Sheikh 1945 Ms. Sheikh has chronic pain and has medical reason to have acupuncture, therapeutic massage, and physical therapy. She should be allowed to use funds from her engageSimply &/or eligible other funds to pay for these services. Please consider this letter applicable throughout 2006. Thank you. Sincerely, Margot Pavon MD TACO documented in this encounter Plan of Treatment Not on filedocumented as of this encounter Visit Diagnoses Not on filedocumented in this encounter Care Teams Machine Trimmer Relationship Specialty Start Date End Date Titus Medina MD PCP - General 09/16/1996 03/17/15 documented as of this encounter
--- OUTSIDE RECORDS SUMMARY | 2022-07-30 20:28 | XMS_ITS | Encounter Summary ---
:1945 Author Organization [facility] Address [address], [place] [address] Care Team Providers Name Role Phone Titus Medina MD Primary Care Provider Reason for Visit Reason Comments Other Encounter Details Date Type Department Care Team Description 12/03/2006 Telephone [facility], Message Other [address] [place] [address] Social History Tobacco Use Types [...] 1641 Note Time: 12/03/06 1135 Status: Signed Asset Protection Specialist: Manuela Rice RN (Registered Nurse) Patient left message on voice mail requesting letter be written by so she can clain services on her flex account for accupuncture,massage therapy and physical therapy. Patient states MD has written letter for the past 2 years and will know what this is about. Contacted patient and asked if ok to address [facility] 12/07/06. Patient states that is fine and would like letter mailed to her home address. Created on 03Dec2006 11:35am by MANUELA RICE On 10Dec2006 11:10am JATINDER DAVENPORT wrote: Letter written, please mail. Acknowledged by JATINDER DAVENPORT on 11:10am On 10Dec2006 1:32pm KENNEDY BRITO wrote: mailed to patient. STITCH LINING SETTER documented in this encounter Plan of Treatment Not on filedocumented as of this encounter Visit Diagnoses Not on filedocumented in this encounter Care Teams Shellfish Weigher Relationship Specialty Start Date End Date Titus Medina MD PCP - General 09/16/1996 03/17/15 documented as of this encounter
--- OUTSIDE RECORDS SUMMARY | 2022-07-30 20:28 | XMS_ITS | Encounter Summary ---
:1945 Author [facility] Address [address] [place] [address] Care Team Providers Name Role Phone Titus Medina MD Primary Care Provider Reason for Visit Reason Comments Other Encounter Details Date Type Department Care Team Description 12/02/2006 Telephone [facility] 3800 Ear, Ramon Ariza MD Other Nose, and Throat [address] [place] [address] [place], [place] [address] [phone] Social History Tobacco Use Types Packs/Day Years Used Date Smoking Tobacco: Never Assessed Sex Assigned at Date Recorded Not on file documented as of this encounter Progress Notes Parul Torres RN - 12/02/2006 8:24 AM CST Phone Note filed by Parul Torres RN at 01/20/11 0833 Author: Parul Torres RN Service: (none) Author Type: Registered Nurse Filed: 01/20/11 5349 Note Time: 12/02/06823 Status: Signed Rehab Physician: Parul Torres RN (Registered Nurse) pt calling with sinus infection requesting meds. Pt last visit was 09-07. Pt called and message left that she needs to call Primary doctor or go to urgent care for meds. Pt informed it has been over one year since last visit. Created on 02Dec2006 8:24am by PARUL TORRES F Acknowledged by RAMON ARIZA on 11:13am FEET FINISHER documented in this encounter Plan of Treatment Not on filedocumented as of this encounter Visit Diagnoses Not on filedocumented in this encounter Care Teams Underground Electrician Relationship Specialty Start Date End Date Titus Medina MD PCP - General 09/16/1996 03/17/15 documented as of this encounter
--- OUTSIDE RECORDS SUMMARY | 2022-07-30 20:28 | XMS_ITS | Encounter Summary ---
:1945 Author Organization [facility] Address [address] [place] [address] Care Team Providers Name Role Phone Titus Medina MD Primary Care Provider Encounter Details Date Type Department Care Team Description 09/24/2006 Office Visit [place] [facility] Adi Jones, Therapy PT [address] [facility] [place], [place] [address] 4 [place] [address] [phone] (Wo rk) Social History Tobacco Use Types Packs/Day Years Used Date Smoking Tobacco: Never Assessed Sex Assigned at Date Recorded Not on file documented as of this encounter Plan of Treatment Not on filedocumented as of this encounter Visit Diagnoses Not on filedocumented in this encounter Care Teams Game Technician Relationship Specialty Start Date End Date Titus Medina MD PCP - General 09/16/1996 03/17/15 documented as of this encounter
--- OUTSIDE RECORDS SUMMARY | 2022-07-30 20:28 | XMS_ITS | Encounter Summary ---
:[address] [facility] Address [address] [place] [address] Care Team Providers Name Role Phone Titus Medina MD Primary Care Provider Reason for Visit Reason Comments Other Encounter Details Date Type Department Care Team Description 11/30/2006 Telephone [facility] Jatinder Hi MD Other [address] [place] [address] [place] [address] [place], [place] [address] (Wo rk) Social History Tobacco Use Types Packs/Day Years Used Date Smoking Tobacco: Never Assessed Sex Assigned at Date Recorded Not on file documented as of this encounter Progress Notes Ramin Barros RN - 11/30/2006 1:38 PM CST Phone Note filed by Ramin Barros RN at 01/20/11 5565 Author: Ramin Barros RN Service: (none) Author Type: Registered Nurse Filed: 01/20/11 8020 Note Time: 11/30/068 Status: Signed Press Worker Helper: Ramin Barros RN (Registered Nurse) Patient left [...] OK fax to [facility] # [id number]. Questions [phone]. Created on 30Nov2006 1:38pm by RAMIN BARROS On 30Nov2006 2:11pm JATINDER DAVENPORT wrote: faxed Acknowledged by JATINDER DAVENPORT on 2:11pm CREAM VAN VENDOR documented in this encounter Plan of Treatment Not on filedocumented as of this encounter Visit Diagnoses Not on filedocumented in this encounter Care Teams Office Helper Clerical Relationship Specialty Start Date End Date Titus Medina MD PCP - General 09/16/1996 03/17/15 documented as of this encounter
--- OUTSIDE RECORDS SUMMARY | 2022-07-30 20:28 | XMS_ITS | Encounter Summary ---
:1945 Author Organization [facility] Address [address] [place] [address] Care Team Providers Name Role Phone Titus Medina MD Primary Care Provider Encounter Details Date Type Department Care Team Description 10/26/2006 Office Visit [place] [facility] Ad[facility] Jones, Therapy PT [address] [facility] [address] [place], [place] [address] [place] [address] [phone] (Wo rk) Social History Tobacco Use Types Packs/Day Years Used Date Smoking Tobacco: Never Assessed Sex Assigned at Date Recorded Not on file documented as of this encounter Plan of Treatment Not on filedocumented as of this encounter Visit Diagnoses Not on filedocumented in this encounter Care Teams Electrostatic Painter Relationship Specialty Start Date End Date Titus Medina MD PCP - General 09/16/1996 03/17/15 documented as of this encounter
--- OUTSIDE RECORDS SUMMARY | 2022-07-30 20:29 | XMS_ITS | Encounter Summary ---
:1945 [facility] Address [address] [place] [address] Care Team Providers Name Role Phone Titus Medina MD Primary Care Provider Encounter Details Date Type Department Care Team Description 04/15/2006 Office Visit [facility] 3850 Urgent Jatinder Parmar [place] Care [address] [place] [address] [phone] (Wo rk) Social History Tobacco Use Types [...] 01/23/11 1311 Note Time: 04/15/062014 Status: Signed Boatswains Mate: Jatinder Poole MD (Physician) NAME: YIMI GARCIA MR: [id number] ACCT: [id number] VISIT: [id number] DICTATING CLINICIAN: JATINDER POOLE MD JOB: [id number] CLINIC PROGRESS NOTE DATE OF VISIT: 04/15/2006 [...] There is erythema surrounding it in a akiak about 5 mm in diameter. There is [...] and reasons to follow up also discussed. MKB:[id number] C: 04/16/06 05:55 DOCUMENT: [id number] documented in this encounter Plan of Treatment Not on filedocumented as of this encounter Visit Diagnoses Not on filedocumented in this encounter Care Teams Burlap Roll Coverer Relationship Specialty Start Date End Date Titus Medina MD PCP - General 09/16/1996 03/17/15 documented as of this encounter
--- OUTSIDE RECORDS SUMMARY | 2022-07-30 20:29 | XMS_ITS | Encounter Summary ---
:1945 Author Organization [facility] Address [address] [place] [address] Care Team Providers Name Role Phone Titus Medina MD Primary Care Provider Encounter Details Date Type Department Care Team Description 12/18/2005 Nursing Visit [facility] 3900 Airam Reyes MD Plastic Surgery [address] [place] [address] [place] [address] Social History Tobacco Use Types Packs/Day Years [...] 0000 Note Time: 12/18/05 0001 Status: Signed Refrigerator Assembler: Renee Gonzalez RN (Registered Nurse) Ramona is [...] will call if she has further questions. OVER PRESS OPERATOR documented in this encounter Plan of Treatment Not on filedocumented as of this encounter Visit Diagnoses Not on filedocumented in this encounter Care Teams General Farmer Relationship Specialty Start Date End Date Titus Medina MD PCP - General 09/16/1996 03/17/15 documented as of this encounter
--- OUTSIDE RECORDS SUMMARY | 2022-07-30 20:29 | XMS_ITS | Encounter Summary ---
:1945 Author Organization [facility] Address [address] [place] [address] Care Team Providers Name Role Phone Titus Medina MD Primary Care Provider Encounter Details Date Type Department Care Team Description 08/24/2006 Office Visit [place] [facility] Adi Jones, Therapy PT [address] [facility] [address] [place], [place] [address] 4 [place] [address] [phone] (Wo rk) Social History Tobacco Use Types Packs/Day Years Used Date Smoking Tobacco: Never Assessed Sex Assigned at Date Recorded Not on file documented as of this encounter Plan of Treatment Not on filedocumented as of this encounter Visit Diagnoses Not on filedocumented in this encounter Care Teams Production Estimator Relationship Specialty Start Date End Date Titus Medina MD PCP - General 09/16/1996 03/17/15 documented as of this encounter
--- OUTSIDE RECORDS SUMMARY | 2022-07-30 20:29 | XMS_ITS | Encounter Summary ---
:1945 Author [facility] Address [address] [place] [address] Care Team Providers Name Role Phone Titus Medina MD Primary Care Provider Reason for Visit Reason Comments Other Encounter Details Date Type Department Care Team Description 03/22/2006 Telephone [facility] Ramin Landry RN Other [address] [facility] , [address] [place] [address] Social History Tobacco Use Types Packs/Day Years Used Date Smoking Tobacco: Never Assessed Sex Assigned at Date Recorded Not on file documented as of this encounter Progress Notes Ramin Barros RN - 03/22/2006 3:43 PM CDT Phone Note filed by Ramin Barros RN at 01/20/11519 Author: Ramin Barrso RN Service: (none) Author Type: Registered Nurse Filed: 01/20/11519 Note Time: 03/22/061542 Status: Signed Sleever: Ramin Barros RN (Registered Nurse) Patient calling requesting the date of her last Tetanus shot. I did tell her it was 09-22-1999. Patient states she received a cut at [employer] and just wanted to check. Patient was encouraged to watch for signs and symptoms of infection, redness swelling or increased pain and make an appt if any of these occur. Patient agrees with plan. Created on 22Mar2006 3:43pm by RAMIN BARROS KEN AND FISH BUTCHER documented in this encounter Plan of Treatment Not on filedocumented as of this encounter Visit Diagnoses Not on filedocumented in this encounter Care Teams Special Equipment Technician Relationship Specialty Start Date End Date Titus Medina MD PCP - General 09/16/1996 03/17/15 documented as of this encounter
--- OUTSIDE RECORDS SUMMARY | 2022-07-30 20:29 | XMS_ITS | Encounter Summary ---
:1945 Author [facility] Address [address] [place] [address] Care Team Providers Name Role Phone Titus Medina MD Primary Care Provider Encounter Details Date Type Department Care Team Description 07/08/2006 Office Visit [facility] Jatinder Hi MD [address] [place] [address] [place] [id number] [phone] Social History Tobacco Use Types Packs/Day Years Used Date Smoking Tobacco: Never Assessed Sex Assigned at Date Recorded Not on file documented as of this encounter Last Filed Vital Signs Vital Sign Reading Time Taken Comments Blood Pressure 130/72 07/08/2006 4:10 PM CDT Pulse 68 07/08/2006 4:10 PM C: Radial Reg ular CDT Temperature 36.6 ??C (97.9 ??F) 07/08/2006 4:10 PM ORAL C: 3 6.6 C CDT Respiratory Rate - - Oxygen Saturation - - Inhaled Oxygen - - Concentration Weight 80.7 kg (177 lb 15.6 07/08/2006 4:10 PM C: 80.7k g oz) CDT Height 168.9 cm (5' 6.5) 07/08/2006 4:10 PM C: 168.9cm CDT Body Mass Index 28.3 07/08/2006 4:10 PM CDT documented in this encounter Progress Notes Jatinder Pavon MD - 07/08/2006 12:01 AM CDT Progress Notes signed by Jatinder Pavon MD at 08/13/06 1018 Author: Jatinder Pavon MD Service: (none) Author Type: Physician Filed: 01/23/11 1448 Note Time: 07/08/06 0001 Status: Signed Rooms Director: Jatinder Pavon MD (Physician) NAME: YIMI GARCIA MR#: [id number] ACCT: [id number] VISIT: [id number] DICTATING CLINICIAN: JATINDER PAVON MD JOB: [id number] LOC: 2602 CLINIC PROGRESS NOTE DATE OF VISIT: 07/08/2006 SUBJECTIVE: Chief Complaint: Physical. A 60-year-old female here for a routine physical. Current concerns: She is overall feeling fairly well. She had physical therapy this summer which helped her right leg. It occasionally flares, and she has some decreased range of motion in the hip. She has a cystocele and urinary stress incontinence. She plans on getting a bladder repair someday. Has some joint pains in her DIP and PIP joints of her fingers and some plantar fasciitis which is helped with night braces. She has had a 15-pound intentional weight loss. She needs a new prescription for Jobst stockings which helped significantly with her varicose veins. PAST MEDICAL HISTORY: She had a previous questionable diagnosis of Meniere's, but that, she reports, is not present. She has had no dizziness, hearing loss, or tinnitus. 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 Has a 27-year-old son who just moved up. She is a nonsmoker. Has one or two glasses of wine a week. Gets adequate calcium and exercises. She is a couple years postmenopausal. Still gets some occasional hot flashes. Has some occasional hemorrhoids. MEDICATIONS: Updated in LastWord. Her PHQ-9 screen for depression is normal at 0. Complete review of systems is otherwise negative, recorded in the chart. OBJECTIVE: VS: BP: 130/72. T: 97.9. P: 68. Ht: 66-1/2. Wt: 178. GENERAL: Healthy-appearing female in no acute distress. Sclerae and conjunctivae benign. TMs, EACs normal. Pharynx benign. NECK: Supple. No adenopathy or thyromegaly. LUNGS: Clear. HEART: Regular rate, S1, S2. No murmurs, thrills, gallops. BREASTS: No masses, discharge, axillary adenopathy. ABDOMEN: Nontender. No HSM, masses, guarding, or rebound. PELVIC: Normal external female genitalia, perineum, urethra, and vagina. Cervix appears normal. Pap smear is done. Uterus midline, normal size. Adnexa are benign. Rectal confirms, no masses. EXTREMITIES: No edema. Does have moderate varicosities. SKIN: No suspicious lesions. ASSESSMENT: 1. Health maintenance. 2. Varicose veins. 3. Menopausal symptoms. 4. DJD. PLAN: Renewed prescription for support pantyhose. Check cholesterol fractionation, glucose, screening PPD due to her work. Follow up with me in a year or as needed. Continue current medication. FAMILIA:[id number] C: 08/02/06 09:53 DOCUMENT: [id number] NT PROGRAM MANAGER documented in this encounter Plan of Treatment Not on filedocumented as of this encounter Visit Diagnoses Not on filedocumented in this encounter Care Teams Oracle Business Analyst Relationship Specialty Start Date End Date Titus Medina MD PCP - General 09/16/1996 03/17/15 documented as of this encounter
--- OUTSIDE RECORDS SUMMARY | 2022-07-30 20:29 | XMS_ITS | Encounter Summary ---
:1945 Author Organization [email or web address] Address [address] [place] [address] Care Team Providers Name Role Phone Titus [...] on filedocumented in this encounter Care Teams Assembly Associate Relationship Specialty Start Date End Date Titus Medina MD PCP - General 09/16/1996 03/17/15 documented as of this encounter
--- OUTSIDE RECORDS SUMMARY | 2022-07-30 20:29 | XMS_ITS | Encounter Summary ---
:1945 Author Organization [facility] Address [address] [place] [address] Care Team Providers Name Role Phone Titus Medina MD Primary Care Provider Encounter Details Date Type Department Care Team Description 08/09/2006 Office Visit [facility] 3931 Yovani Crump MD Orthopedics 3931 [place] [address] Social History Tobacco Use Types Packs/Day Years [...] 1525 Note Time: 08/09/06 0001 Status: Signed Hybrid Powertrain Development Engineer: Yovani Delarosa MD (Physician) NAME: YIMI GARCIA MR#: [id number] ACCT: [id number] VISIT: [id number] DICTATING CLINICIAN: YOVANI DELAROSA MD JOB: [id number] LOC: 211 CLINIC PROGRESS NOTE DATE OF VISIT: 08/09/2006 SUBJECTIVE: : 1945. CHIEF COMPLAINT: Right knee pain. HISTORY OF PRESENT ILLNESS: This 60-year-old woman has had about 1 month of pain in her right knee. She began using a new weight machine for leg lifts at the [facility]. The machine was explained to her. She [...] pain with these activities. 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 REVIEW OF SYSTEMS: There has been [...] injection, etc. IMPRESSION: Patellofemoral syndrome, right knee. JLL:[id number] C: 08/11/06 18:41 DOCUMENT: [id number] N CONDUCTOR documented in this encounter Plan of Treatment Not on filedocumented as of this encounter Procedures Procedure Name Priority Date/Time Associated Diagnosis Comme nts XR KNEE RT 3 VIEWS Routine 08/09/2006 2:16 PM Res ults for this TRAIN CONDUCTOR procedure are i n the results section. XR KNEE LT 2 VIEWS Routine 08/09/2006 2:15 PM Res ults for this TRAIN CONDUCTOR procedure are i n the results section. documented in this encounter Results XR Knee Rt 3 Views (08/09/2006 2:16 PM TRAIN CONDUCTOR) Anatomical Region Laterality Modality Lower Extremity, Knee Other Specimen (Source) Anatomical Location Collection Method / Collectio n Time Received Time / Laterality Volume Impressions 08/09/2006 2:16 PM TRAIN CONDUCTOR : ??Limited study. ??No fractures or dislocations. [id number] Dictating ÁNGEL HUNT MD Narrative 08/09/2006 2:16 PM TRAIN CONDUCTOR COMPARISON EXAM: ??None. FINDINGS: ??Frontal views of [...] Limited study. No fractures or disloca tions. [id number] Dictating ÁNGEL HUNT MD Yovani Delarosa MD RAD GD XR Knee Lt 2 Views (08/09/2006 2:15 PM TRAIN CONDUCTOR) Anatomical Region Laterality Modality Lower Extremity, Knee Other Specimen (Source) Anatomical Location Collection Method / Collectio n Time Received Time / Laterality Volume Impressions 08/09/2006 2:15 PM TRAIN CONDUCTOR : ??Limited study. ??No fractures or dislocations. [id number] Dictating ÁNGEL HUNT MD Narrative 08/09/2006 2:15 PM TRAIN CONDUCTOR COMPARISON EXAM: ??None. FINDINGS: ??Frontal views of [...] Limited study. No fractures or disloca tions. [id number] Dictating ÁNGEL HUNT MD Yovani Delarosa MD RAD GD documented in this encounter Visit Diagnoses Not on filedocumented in this encounter Care Teams Frame Expander Relationship Specialty Start Date End Date Titus Medina MD PCP - General 09/16/1996 03/17/15 documented as of this encounter
--- OUTSIDE RECORDS SUMMARY | 2022-07-30 20:29 | XMS_ITS | Encounter Summary ---
:1945 Author Organization [facility] Address [address] [place] [address] Care Team Providers Name Role Phone Titus Medina MD Primary Care Provider Encounter Details Date Type Department Care Team Description 02/04/2006 Office Visit CONV P3900 Airam Hanks MD [address] [place] [address] [place], [place] [id number] Social History Tobacco Use Types Packs/Day Years [...] 1150 Note Time: 02/04/06 0001 Status: Signed Distribution Technician: Airam Braun MD (Physician) NAME: YIMI GARCIA MR: [id number] ACCT: [id number] VISIT: [id number] DICTATING CLINICIAN: AIRAM BRAUN MD JOB: [id number] CLINIC PROGRESS NOTE DATE OF VISIT: 02/04/2006 [...] see her again in a few months. MC:[id number] C: 02/10/06 12:20 DOCUMENT: [id number] documented in this encounter Plan of Treatment Not on filedocumented as of this encounter Visit Diagnoses Not on filedocumented in this encounter Care Teams Electric Meter Inspector Relationship Specialty Start Date End Date Titus Medina MD PCP - General 09/16/1996 03/17/15 documented as of this encounter
--- OUTSIDE RECORDS SUMMARY | 2022-07-30 20:29 | XMS_ITS | Encounter Summary ---
:1945 [facility] Address [address] [place] [address] Care Team Providers Name Role Phone Titus Medina MD Primary Care Provider Encounter Details Date Type Department Care Team Description 08/03/2006 Office Visit [facility] 3800 Latoya Allisno MD [address] [place] [address] [place], [place] [address] (Wo rk) Social History Tobacco Use Types Packs/Day Years Used Date Smoking Tobacco: Never Assessed Sex Assigned at Date Recorded Not on file documented as of this encounter Last Filed Vital Signs Vital Sign Reading Time Taken Comments Blood Pressure 112/78 08/03/2006 7:37 AM MAINSTREAMING FACILITATOR Pulse - - Temperature - - Respiratory Rate - - Oxygen Saturation - - Inhaled Oxygen Concentration - - Weight 80.3 kg (176 lb 15.8 oz) 08/03/2006 7:37 AM MAINSTREAMING FACILITATOR C: 80.3kg Height - - Body Mass Index 28.14 07/08/2006 4:10 PM CDT documented in this encounter Progress Notes Latoya Garibay MD - 08/03/2006 12:01 AM CST Progress Notes signed by Latoya Garibay MD at 08/04/06 0923 Author: Latoya Garibay MD Service: (none) Author Type: Physician Filed: 01/23/11 1517 Note Time: 08/03/062014 Status: Signed Grinder Set Up Operator Internal: Latoya Garibay MD (Physician) NAME: YIMI GARCIA MR#: [id number] ACCT: [id number] VISIT: [id number] DICTATING CLINICIAN: LATOYA GARIBAY MD JOB: [id number] LOC: 414 CLINIC PROGRESS NOTE DATE OF [...] her back in a year for followup. RAW:[id number] C: 08/03/06 09:19 DOCUMENT: [id number] STREAMING FACILITATOR documented in this encounter Plan of Treatment Not on filedocumented as of this encounter Visit Diagnoses Not on filedocumented in this encounter Care Teams Head Turning Machine Operator Relationship Specialty Start Date End Date Titus Medina MD PCP - General 09/16/1996 03/17/15 documented as of this encounter
--- OUTSIDE RECORDS SUMMARY | 2022-07-30 20:29 | XMS_ITS | Encounter Summary ---
:1945 Author [facility] Address [address] [place] [address] Care Team Providers Name Role Phone Titus Medina MD Primary Care Provider Encounter Details Date Type Department Care Team Description 07/08/2006 PN Conversion Only [facility] CONVERSION Margot Pavon MD [address] [place] [address] (Wo rk) Social History Tobacco [...] Results Pap Smear (07/08/2006 11:59 AM CDT) [facility] gist Method Time Signature PAP Smear SEE TEXT No normal HP CONVERSION Liquid Based range Comment: Patient: YIMI GARCIA ? CERVICAL CYTOLOGY REPORT Pathology # ??[id number] ?Date Obtained: [id number] ? Date Received: [id number] CYTOLOGIC IMPRESSION: Negative for intraepithelial lesion or m alignancy. Verified 07/19/06 by: ??JLD ?(electronic signature) ? BRODERICK TIONAL DATA LMP: ?CLINICAL HAEMATOLOGIST CLINICAL HIST LIQUID BASED PAP CERVICAL SPECIMEN ADEQUACY: ?? Satisfactory. ENDOCERVICAL CELLS: ??Absent; patient is post-menopausal. Specimen (Source) Anatomical Collection Method Collection Time Re ceived Time Location / / Volume Laterality 07/08/2006 11:59 AM CDT Margot Pavon MD LAB_1 Performing Organization Address City/State/ZIP Code Phon e Number HP CONVERSION documented in this encounter Visit Diagnoses Not on filedocumented in this encounter Care Teams Control System Computer Scientist Relationship Specialty Start Date End Date Titus Medina MD PCP - General 09/16/1996 03/17/15 documented as of this encounter
--- OUTSIDE RECORDS SUMMARY | 2022-07-30 20:29 | XMS_ITS | Encounter Summary ---
:1945 Author Organization [employer] Address [address] [place] [address] Care Team Providers Name Role Phone Titus Medina MD Primary Care Provider Encounter Details Date Type Department Care Team Description 09/19/2006 Office Visit [facility] 3850 Urgent Elisha chong, Care Gómez Sorenson MD [address] [facility]50 [place] [address] [place], [place] [address] (Wo rk) Social History Tobacco Use Types Packs/Day Years Used Date Smoking Tobacco: Never Assessed Sex Assigned at Date Recorded Not on file documented as of this encounter Last Filed Vital Signs Vital Sign Reading Time Taken Comments Blood Pressure 130/70 09/19/2006 10:14 AM COSTUME DRAPER Pulse 78 09/19/2006 10:14 AM COSTUME DRAPER Temperature 36.6 ??C (97.9 ??F) 09/19/2006 10:14 C: 36.6 C S imultaneous AM COSTUME DRAPER filing. User may not have seen previo us data. Respiratory Rate 16 09/19/2006 10:14 AM COSTUME DRAPER Oxygen Saturation - - Inhaled Oxygen - - Concentration Weight - - Height - - Body Mass Index - - documented in this encounter Progress Notes Gómez Ruiz MD - 09/19/2006 12:01 AM CST Progress Notes signed by Gómez Starr MD at 10/01/06 5690 Author: Yas Starr MD Service: (none) Author Type: Physician Filed: 01/23/11 1615 Note Time: 09/19/06 0001 Status: Signed Outpatient Clerk: Yas Starr MD (Physician) NAME: YIMI GARCIA MR#: [id number] ACCT: [id number] VISIT: [id number] DICTATING CLINICIAN: Yas Starr MD JOB: [id number] LOC: 420 CLINIC PROGRESS NOTE DATE OF [...] up if there is any further problem. [facility]:[id number] C: 09/20/06 13:11 DOCUMENT: [id number] UME DRAPER documented in this encounter Plan of Treatment Not on filedocumented as of this encounter Visit Diagnoses Not on filedocumented in this encounter Care Teams Director Export Relationship Specialty Start Date End Date Titus Medina MD PCP - General 09/16/1996 03/17/15 documented as of this encounter
--- OUTSIDE RECORDS SUMMARY | 2022-07-30 20:29 | XMS_ITS | Encounter Summary ---
:1945 Author Organization [facility] Address [address] [place] [address] Care Team Providers Name Role Phone Titus Medina MD Primary Care Provider Encounter Details Date Type Department Care Team Description 12/28/2005 Procedure Visit [facility] 3900 Alvino Godwin Contact Lens 3900 LEONARDA NICOLLET [address] [place] [id number] Social History Tobacco Use Types Packs/Day Years Used Date Smoking Tobacco: Never Assessed Sex Assigned at Date Recorded Not on file documented as of this encounter Plan of Treatment Not on filedocumented as of this encounter Visit Diagnoses Not on filedocumented in this encounter Care Teams Membership Coordinator Relationship Specialty Start Date End Date Titus Medina MD PCP - General 09/16/1996 03/17/15 documented as of this encounter
--- OUTSIDE RECORDS SUMMARY | 2022-07-30 20:29 | XMS_ITS | Encounter Summary ---
:1945 Author Organization [facility] Address [address] [place] [address] Care Team Providers Name Role Phone Titus Medina MD Primary Care Provider Encounter Details Date Type Department Care Team Description 03/08/2006 Office Visit [place] [facility] Adi Jones, Therapy PT 2001 [facility] [address] [place], [place] [address] 4 [place] [address] [phone] (Wo rk) Social History Tobacco Use Types Packs/Day Years Used Date Smoking Tobacco: Never Assessed Sex Assigned at Date Recorded Not on file documented as of this encounter Plan of Treatment Not on filedocumented as of this encounter Visit Diagnoses Not on filedocumented in this encounter Care Teams Lead Ruby On Rails Developer Relationship Specialty Start Date End Date Titus Medina MD PCP - General 09/16/1996 03/17/15 documented as of this encounter
--- OUTSIDE RECORDS SUMMARY | 2022-07-30 20:29 | XMS_ITS | Encounter Summary ---
:1945 Author Organization [facility] Address [address] [place] [address] Care Team Providers Name Role Phone Titus Medina MD Primary Care Provider Encounter Details Date Type Department Care Team Description 01/14/2006 Office Visit [place] [facility] Adi Jones, Therapy PT [address] [facility] [address] [place], [place] [address] 4 [place] [address] [phone] (Wo rk) Social History Tobacco Use Types Packs/Day Years Used Date Smoking Tobacco: Never Assessed Sex Assigned at Date Recorded Not on file documented as of this encounter Plan of Treatment Not on filedocumented as of this encounter Visit Diagnoses Not on filedocumented in this encounter Care Teams Ping Pong Table Assembler Relationship Specialty Start Date End Date Titus Medina MD PCP - General 09/16/1996 03/17/15 documented as of this encounter
--- OUTSIDE RECORDS SUMMARY | 2022-07-30 20:29 | XMS_ITS | Encounter Summary ---
:1945 Author Organization [facility] Address [address] [place] [address] Care Team Providers Name Role Phone Titus Medina MD Primary Care Provider Encounter Details Date Type Department Care Team Description 02/15/2006 Office Visit [place] [facility] Adi Jones, Therapy PT 2001 [facility] [address] [place], [place] [address] 4 [place] [address] [phone] (Wo rk) Social History Tobacco Use Types Packs/Day Years Used Date Smoking Tobacco: Never Assessed Sex Assigned at Date Recorded Not on file documented as of this encounter Plan of Treatment Not on filedocumented as of this encounter Visit Diagnoses Not on filedocumented in this encounter Care Teams Robotics Mechanic Relationship Specialty Start Date End Date Titus Medina MD PCP - General 09/16/1996 03/17/15 documented as of this encounter
--- OUTSIDE RECORDS SUMMARY | 2022-07-30 20:29 | XMS_ITS | Encounter Summary ---
:1945 Author Organization [facility] Address [address] [place] [address] Care Team Providers Name Role Phone Titus Medina MD Primary Care Provider Encounter Details Date Type Department Care Team Description 03/23/2006 Office Visit [place] [facility] Adi Jones, Therapy PT [facility] [address] [place], [place] [address] 4 [place] [address] [phone] (Wo rk) Social History Tobacco Use Types Packs/Day Years Used Date Smoking Tobacco: Never Assessed Sex Assigned at Date Recorded Not on file documented as of this encounter Plan of Treatment Not on filedocumented as of this encounter Visit Diagnoses Not on filedocumented in this encounter Care Teams Professor Of Geography Relationship Specialty Start Date End Date Titus Medina MD PCP - General 09/16/1996 03/17/15 documented as of this encounter
--- OUTSIDE RECORDS SUMMARY | 2022-07-30 20:29 | XMS_ITS | Encounter Summary ---
:1945 Author Organization [facility] Address [address], [place] [address] Care Team Providers Name Role Phone Titus Medina MD Primary Care Provider Reason for Visit Reason Comments Other Encounter Details Date Type Department Care Team Description 07/31/2005 Telephone [facility] 3800 Ear, Ramon Ariza MD Other Nose, and Throat [address] [place] [address] [place], [place] [address] [phone] Social History Tobacco Use Types Packs/Day Years Used Date Smoking Tobacco: Never Assessed Sex Assigned at Date Recorded Not on file documented as of this encounter Progress Notes Fatemeh Hannah - 07/31/2005 4:29 PM CDT Phone Note filed by Fatemeh Hannah MA at 01/19/112148 Author: Fatemeh Hannah MA Service: (none) Author Type: Unit Clerk Filed: 01/19/112148 Note Time: 07/31/051628 Status: Signed Auto Glass Technician: Fatemeh Hannah MA (Unit Clerk) Per ,Rx was called to [facility] [phone] for Clindamyacin 150mg.TID x10 days. Created on 31Jul2005 4:29pm by FATEMEH HANNAH Acknowledged by RAMON ARIZA on 8:09am CH SPECIALIST documented in this encounter Plan of Treatment Not on filedocumented as of this encounter Visit Diagnoses Not on filedocumented in this encounter Care Teams Cherry Grower Relationship Specialty Start Date End Date Titus Medina MD PCP - General 09/16/1996 03/17/15 documented as of this encounter
--- OUTSIDE RECORDS SUMMARY | 2022-07-30 20:29 | XMS_ITS | Encounter Summary ---
:1945 Author [facility] Address [address] [place] [address] Care Team Providers Name Role Phone Titus [...] filedocumented in this encounter Care Teams Manager Investment Relationship Specialty Start Date End Date Titus Medina MD PCP - General 09/16/1996 03/17/15 documented as of this encounter
--- OUTSIDE RECORDS SUMMARY | 2022-07-30 20:29 | XMS_ITS | Encounter Summary ---
:1945 Author Organization [facility] Address [address] [place] [address] Care Team Providers Name Role Phone Titus Medina MD Primary Care Provider Encounter Details Date Type Department Care Team Description 03/18/2006 Office Visit [place] [facility] Adi Jones, Therapy PT 2001 [facility] [address] [place], [place] [address] 4 [place] [address] [phone] (Wo rk) Social History Tobacco Use Types Packs/Day Years Used Date Smoking Tobacco: Never Assessed Sex Assigned at Date Recorded Not on file documented as of this encounter Plan of Treatment Not on filedocumented as of this encounter Visit Diagnoses Not on filedocumented in this encounter Care Teams Airline Operations Agent Relationship Specialty Start Date End Date Titus Medina MD PCP - General 09/16/1996 03/17/15 documented as of this encounter
--- OUTSIDE RECORDS SUMMARY | 2022-07-30 20:29 | XMS_ITS | Encounter Summary ---
:1945 Author Organization [facility] Address [address] [place] [address] Care Team Providers Name Role Phone Titus Medina MD Primary Care Provider Encounter Details Date Type Department Care Team Description 08/30/2006 Office Visit [place] [facility] Adi Jones, Therapy PT 2001 [facility] [address] [place], [place] [address] 4 [place] [address] [phone] (Wo rk) Social History Tobacco Use Types Packs/Day Years Used Date Smoking Tobacco: Never Assessed Sex Assigned at Date Recorded Not on file documented as of this encounter Plan of Treatment Not on filedocumented as of this encounter Visit Diagnoses Not on filedocumented in this encounter Care Teams Production Aide Relationship Specialty Start Date End Date Titus Medina MD PCP - General 09/16/1996 03/17/15 documented as of this encounter
--- OUTSIDE RECORDS SUMMARY | 2022-07-30 20:29 | XMS_ITS | Encounter Summary ---
:1945 Author Organization [facility] Address [address] [place] [address] Care Team Providers Name Role Phone Titus Medina MD Primary Care Provider Encounter Details Date Type Department Care Team Description 02/23/2006 Cloth Framer Only [place] [facility] Margot Pavon MD [facility] [address] [facility] [address] [place] [address] [phone] Social History Tobacco Use Types Packs/Day Years [...] 1211 Note Time: 02/23/06 0001 Status: Signed Developer Programmer: Margot Pavon MD (Physician) November 04, 2005 RE: Ramona Sheikh 1945 Ms. Sheikh has chronic pain and has medical reason to have acupuncture, therapeutic massage, and physical therapy. She should be allowed to use funds from her [employer] &/or eligible other funds to pay for these services. Please consider this letter applicable throughout 2006. Thank you. Margot Pavon MD Family Medicine documented in this encounter Plan of Treatment Not on filedocumented as of this encounter Visit Diagnoses Not on filedocumented in this encounter Care Teams Fleet Administrative Assistant Relationship Specialty Start Date End Date Titus Medina MD PCP - General 09/16/1996 03/17/15 documented as of this encounter
--- OUTSIDE RECORDS SUMMARY | 2022-07-30 20:29 | XMS_ITS | Encounter Summary ---
:1945 Author Organization [facility] Address [address] [place] [address] Care Team Providers Name Role Phone Titus Medina MD Primary Care Provider Encounter Details Date Type Department Care Team Description 03/11/2006 Office Visit [place] [facility] Adi Jones, Therapy PT 2001 [facility] [address] [place], [place] [address] 4 [place] [address] [phone] (Wo rk) Social History Tobacco Use Types Packs/Day Years Used Date Smoking Tobacco: Never Assessed Sex Assigned at Date Recorded Not on file documented as of this encounter Plan of Treatment Not on filedocumented as of this encounter Visit Diagnoses Not on filedocumented in this encounter Care Teams Lead Android Developer Relationship Specialty Start Date End Date Titus Medina MD PCP - General 09/16/1996 03/17/15 documented as of this encounter
--- OUTSIDE RECORDS SUMMARY | 2022-07-30 20:29 | XMS_ITS | Encounter Summary ---
:1945 Author Organization [facility] Address [address] [place] [address] Care Team Providers Name Role Phone Titus Medina MD Primary Care Provider Encounter Details Date Type Department Care Team Description 09/21/2005 PN Conversion Only TAX COLLECTION COORDINATOR 3800 CONV [address] [place] [address] Social History Tobacco Use Types Packs/Day Years Used Date Smoking Tobacco: Never Assessed Sex Assigned at Date Recorded Not on file documented as of this encounter Plan of Treatment Not on filedocumented as of this encounter Visit Diagnoses Not on filedocumented in this encounter Care Teams Player Services Representative Relationship Specialty Start Date End Date Titus Medina MD PCP - General 09/16/1996 03/17/15 documented as of this encounter
--- OUTSIDE RECORDS SUMMARY | 2022-07-30 20:29 | XMS_ITS | Encounter Summary ---
:1945 Author Organization [facility] Address [address] [place] [address] Care Team Providers Name Role Phone Titus Medina MD Primary Care Provider Encounter Details Date Type Department Care Team Description 03/30/2006 Office Visit [place] Physical Adi Jones, Therapy PT [address] [facility] [place], [place] [address] 4 [place] [address] [phone] (Wo rk) Social History Tobacco Use Types Packs/Day Years Used Date Smoking Tobacco: Never Assessed Sex Assigned at Date Recorded Not on file documented as of this encounter Plan of Treatment Not on filedocumented as of this encounter Visit Diagnoses Not on filedocumented in this encounter Care Teams Inside Contractor Sales Relationship Specialty Start Date End Date Titus Medina MD PCP - General 09/16/1996 03/17/15 documented as of this encounter
--- OUTSIDE RECORDS SUMMARY | 2022-07-30 20:29 | XMS_ITS | Encounter Summary ---
:1945 Author Organization [facility] Address [address] [place] [address] Care Team Providers Name Role Phone Titus Medina MD Primary Care Provider Encounter Details Date Type Department Care Team Description 01/14/2006 PN Conversion Only [place] [address] [place] [address] Social History Tobacco Use Types Packs/Day Years Used Date Smoking Tobacco: Never Assessed Sex Assigned at Date Recorded Not on file documented as of this encounter Plan of Treatment Not on filedocumented as of this encounter Visit Diagnoses Not on filedocumented in this encounter Care Teams Compensation/Benefits Specialist Relationship Specialty Start Date End Date Titus Medina MD PCP - General 09/16/1996 03/17/15 documented as of this encounter
--- OUTSIDE RECORDS SUMMARY | 2022-07-30 20:29 | XMS_ITS | Encounter Summary ---
:1945 Author Organization [employer] Address [address] [place] [address] Care Team Providers Name Role Phone Titus Medina MD Primary Care Provider Encounter Details Date Type Department Care Team Description 04/16/[address] [facility] 38[address] R adiology [address] [place], [place] [address] Social History Tobacco Use Types Packs/Day Years [...] filedocumented in this encounter Care Teams Police Or Patrol Park Officer Relationship Specialty Start Date End Date Titus Medina MD PCP - General 09/16/1996 03/17/15 documented as of this encounter
--- OUTSIDE RECORDS SUMMARY | 2022-07-30 20:29 | XMS_ITS | Encounter Summary ---
:1945 Author Organization [facility] Address [address] [place] [address] Care Team Providers Name Role Phone Titus Medina MD Primary Care Provider Encounter Details Date Type Department Care Team Description 09/21/2005 Office Visit [facility] 3800 Yudith Chan AU.D. Audiology 401 [facility] 3800 [place] [address] [place], [place] [address] [phone] Social History Tobacco Use Types Packs/Day Years Used Date Smoking Tobacco: Never Assessed Sex Assigned at Date Recorded Not on file documented as of this encounter Progress Notes Yudith Chan AU.D. - 09/21/2005 12:01 AM CST Progress Notes signed by ALYCIA Robert at 10/09/05 1358 Author: ALYCIA Robert Service: (none) Author Type: Torpedo Man Filed: 01/23/11 0903 Note Time: 09/21/05 0001 Status: Signed Advertising Space Clerk: ALYCIA Robert (Torpedo Man) NAME: YIMI GARCIA MR: [id number] ACCT: VISIT: [id number] DICTATING CLINICIAN: YUDITH LOERA MS,[facility] JOB: [id number] CLINIC PROGRESS NOTE DATE OF VISIT: 09/21/2005 SUBJECTIVE: Yimi Garcia, [id number], was seen for an audiological evaluation upon self referral. She was last seen in our department on 07/09/2004 which revealed a moderate mixed hearing loss improving to normal, bilaterally. 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 Speech receptionist thresholds were obtained at 20 dBHL, per ear. Word recognition at 60 dBHL, per ear, was 100% in the right ear and 92% in the left ear. ASSESSMENT: Communicatively significant moderate mixed hearing loss improving to normal, bilaterally. Speech receptionist thresholds were in good agreement with [...] utilize hearing protection devices when in noise. [id number] C: 09/23/05 20:00 DOCUMENT: [id number] STANCE REPRESENTATIVE documented in this encounter Plan of Treatment Not on filedocumented as of this encounter Visit Diagnoses Not on filedocumented in this encounter Care Teams Sales Agent Financial Report Service Relationship Specialty Start Date End Date Titus Medina MD PCP - General 09/16/1996 03/17/15 documented as of this encounter
--- OUTSIDE RECORDS SUMMARY | 2022-07-30 20:29 | XMS_ITS | Encounter Summary ---
:1945 Author [facility] Address [address], [place] [address] Care Team Providers Name Role Phone Titus Medina MD Primary Care Provider Reason for Visit Reason Comments Other Encounter Details Date Type Department Care Team Description 02/12/2006 Telephone [facility], Message Other [address] [place] [address] Social History Tobacco Use Types [...] Filed: 01/20/11357 Note Time: 02/12/061652 Status: Signed Microphone Operator: Salma Barros RN (Registered Nurse) Patient calling requesting a referral to PT for her feet and ankles. Patient is seeing a PT Marlon Jones already for her back and he says it is related to her feet and ankles but needs a referral. # [id number]. Please OK and send to Marianela to [...] referral. Acknowledged by MARIANELA TANG on 10:39am R AND SCALER documented in this encounter Plan of Treatment Not on filedocumented as of this encounter Visit Diagnoses Not on filedocumented in this encounter Care Teams Databases Software Consultant Relationship Specialty Start Date End Date Titus Medina MD PCP - General 09/16/1996 03/17/15 documented as of this encounter
--- OUTSIDE RECORDS SUMMARY | 2022-07-30 20:29 | XMS_ITS | Encounter Summary ---
:1945 Author Organization formerly [facility] Address [address] [place] [address] Care Team Providers Name Role Phone Titus Medina MD Primary Care Provider Encounter Details Date Type Department Care Team Description 01/14/2006 PN Conversion Only [facility] [address] [place] [address] Social History Tobacco Use Types Packs/Day Years Used Date Smoking Tobacco: Never Assessed Sex Assigned at Date Recorded Not on file documented as of this encounter Plan of Treatment Not on filedocumented as of this encounter Visit Diagnoses Not on filedocumented in this encounter Care Teams Load Out Worker Relationship Specialty Start Date End Date Titus Medina MD PCP - General 09/16/1996 03/17/15 documented as of this encounter
--- OUTSIDE RECORDS SUMMARY | 2022-07-30 20:29 | XMS_ITS | Encounter Summary ---
:1945 Author Organization [facility] Address [address] [place] [address] Care Team Providers Name Role Phone Titus Medina MD Primary Care Provider Reason for Visit Reason Comments Other Encounter Details Date Type Department Care Team Description 08/25/2005 Telephone [facility] Ramin Landry RN Other [address] [facility] [address] [place] [address] Social History Tobacco Use Types [...] Filed: 01/19/112227 Note Time: 08/25/051318 Status: Signed Rubbing Bed Operator: Ramin Barros RN (Registered Nurse) CLINICIAN FOLLOW-UP: [...] to ER if worsening symptoms. Reference(s) Used: [facility] Neuro Symptoms Nursing Reference - Adult, *SH~PNNL~NEURO ~ Created on 25Aug2005 1:19pm by RAMIN BARROS EWASHER documented in this encounter Plan of Treatment Not on filedocumented as of this encounter Visit Diagnoses Not on filedocumented in this encounter Care Teams Electrician Sound Relationship Specialty Start Date End Date Titus Medina MD PCP - General 09/16/1996 03/17/15 documented as of this encounter
--- OUTSIDE RECORDS SUMMARY | 2022-07-30 20:29 | XMS_ITS | Encounter Summary ---
:1945 Author Organization [facility] Address [address] [place] [address] Care Team Providers Name Role Phone Titus Medina MD Primary Care Provider Encounter Details Date Type Department Care Team Description 02/05/2006 Office Visit [facility] Ad[facility] Jones, Therapy PT [address] [facility] [place], [place] [address] [place] [address] [phone] (Wo rk) Social History Tobacco Use Types Packs/Day Years Used Date Smoking Tobacco: Never Assessed Sex Assigned at Date Recorded Not on file documented as of this encounter Plan of Treatment Not on filedocumented as of this encounter Visit Diagnoses Not on filedocumented in this encounter Care Teams Color Shop Helper Relationship Specialty Start Date End Date Titus Medina MD PCP - General 09/16/1996 03/17/15 documented as of this encounter
--- OUTSIDE RECORDS SUMMARY | 2022-07-30 20:29 | XMS_ITS | Encounter Summary ---
:1945 Author Organization [facility] Address [address] [place] [address] Care Team Providers Name Role Phone Titus Medina MD Primary Care Provider Reason for Visit Reason Comments Other Encounter Details Date Type Department Care Team Description 10/21/2005 Telephone [facility] 3800 Ear, Ramon Ariza MD Other Nose, and Throat [address] [facility] [place] [address] [place], [place] [address] [phone] Social History Tobacco Use Types Packs/Day Years Used Date Smoking Tobacco: Never Assessed Sex Assigned at Date Recorded Not on file documented as of this encounter Progress Notes Parul Torres RN - 10/21/2005 2:03 PM CST Phone Note filed by Parul Torres RN at 01/19/11 6300 Author: Parul Torres RN Service: (none) Author Type: Registered Nurse Filed: 01/19/11 5457 Note Time: 10/21/05 1403 Status: Signed Pantograph Engraver: Parul Torres RN (Registered Nurse) pt calling to refill Astelin nasal spray. She would like it called to [facility] #[phone]. Called in 3month supply with 3 refills. Created on 21Oct2005 2:03pm by PARUL TORRES Acknowledged by RAMON ARIZA on 3:59pm HING MACHINE OPERATOR documented in this encounter Plan of Treatment Not on filedocumented as of this encounter Visit Diagnoses Not on filedocumented in this encounter Care Teams Battery Tester Field Relationship Specialty Start Date End Date Titus Medina MD PCP - General 09/16/1996 03/17/15 documented as of this encounter
--- OUTSIDE RECORDS SUMMARY | 2022-07-30 20:29 | XMS_ITS | Encounter Summary ---
:1945 Author Organization [facility] Address [address] [place] [address] Care Team Providers Name Role Phone Titus Medina MD Primary Care Provider Encounter Details Date Type Department Care Team Description [address] [facility] Kaleigh Olson MD [address] [place] [address] [place] [address] [phone] Social History Tobacco Use Types Packs/Day Years Used Date Smoking Tobacco: Never Assessed Sex Assigned at Date Recorded Not on file documented as of this encounter Plan of Treatment Not on filedocumented as of this encounter Visit Diagnoses Not on filedocumented in this encounter Care Teams Bus Repair Supervisor Relationship Specialty Start Date End Date Titus Medina MD PCP - General 09/16/1996 03/17/15 documented as of this encounter
--- OUTSIDE RECORDS SUMMARY | 2022-07-30 20:29 | XMS_ITS | Encounter Summary ---
:1945 Author Organization [facility] Address [address] [place] [address] Care Team Providers Name Role Phone Titus Medina MD Primary Care Provider Encounter Details Date Type Department Care Team Description 12/03/2005 Procedure Visit [facility] P3900 Airam Hanks MD [address] [facility] [address] [place] [address] [address] [place], [place] [address] Social History Tobacco Use Types Packs/Day Years Used Date Smoking Tobacco: Never Assessed Sex Assigned at Date Recorded Not on file documented as of this encounter Progress Notes Airam Braun MD - 12/03/2005 12:01 AM CST Progress Notes signed by Airam Braun MD at 01/11/06 4215 Author: Airam Braun MD Service: (none) Author Type: Physician Filed: 01/23/11 1032 Note Time: 12/03/05 0001 Status: Signed Footwear Factory Worker: Airam Braun MD (Physician) NAME: YIMI GARCIA MR: [id number] ACCT: [id number] VISIT: [id number] DICTATING CLINICIAN: AIRAM BRAUN MD JOB: [id number] CLINIC PROGRESS NOTE DATE OF VISIT: 12/03/2005 [...] sutures in for 12-14 days this time. [id number] C: 12/03/05 11:31 DOCUMENT: [id number] documented in this encounter Plan of Treatment Not on filedocumented as of this encounter Visit Diagnoses Not on filedocumented in this encounter Care Teams Clinician Oncology Relationship Specialty Start Date End Date Titus Medina MD PCP - General 09/16/1996 03/17/15 documented as of this encounter
--- OUTSIDE RECORDS SUMMARY | 2022-07-30 20:29 | XMS_ITS | Encounter Summary ---
:1945 Author Organization [facility] Address [address] [place] [address] Care Team Providers Name Role Phone Titus Medina MD Primary Care Provider Encounter Details Date Type Department Care Team Description 01/14/2006 PN Conversion Only [facility] [address] [place] [address] Social History Tobacco Use Types Packs/Day Years Used Date Smoking Tobacco: Never Assessed Sex Assigned at Date Recorded Not on file documented as of this encounter Plan of Treatment Not on filedocumented as of this encounter Visit Diagnoses Not on filedocumented in this encounter Care Teams Bender Machine Operator Relationship Specialty Start Date End Date Titus Medina MD PCP - General 09/16/1996 03/17/15 documented as of this encounter
--- OUTSIDE RECORDS SUMMARY | 2022-07-30 20:29 | XMS_ITS | Encounter Summary ---
:1945 Author Organization [facility] Address [address] [place] [address] Care Team Providers Name Role Phone Titus Medina MD Primary Care Provider Encounter Details Date Type Department Care Team Description 09/17/2005 Procedure Visit [facility]V P3900 Airam Hanks MD [address] [facility] [address] [place] [address] [address] [place], [place] [address] Social History Tobacco Use Types Packs/Day Years [...] 0859 Note Time: 09/17/05 0001 Status: Signed Machine Specialist: Airam Braun MD (Physician) NAME: YIMI GARCIA MR: [id number] ACCT: [id number] VISIT: [id number] DICTATING CLINICIAN: AIRAM BRAUN MD JOB: [id number] CLINIC PROGRESS NOTE DATE OF VISIT: 09/17/2005 [...] deep tissue. She will set it up. [id number] C: 09/28/05 09:28 DOCUMENT: [id number] ICAL RESOURCE DIRECTOR documented in this encounter Plan of Treatment Not on filedocumented as of this encounter Visit Diagnoses Not on filedocumented in this encounter Care Teams Sports Leadership Instructor Relationship Specialty Start Date End Date Titus Medina MD PCP - General 09/16/1996 03/17/15 documented as of this encounter
--- OUTSIDE RECORDS SUMMARY | 2022-07-30 20:29 | XMS_ITS | Encounter Summary ---
:1945 Author Organization [facility] Address [address] [place] [address] Care Team Providers Name Role Phone Titus Medina MD Primary Care Provider Reason for Visit Reason Comments Other Encounter Details Date Type Department Care Team Description 10/16/2005 Telephone [facility] Jatinder Hi MD Other [address] [place] [address] [place] [address] [place], [place] [address] (Wo rk) Social History Tobacco Use Types Packs/Day Years Used Date Smoking Tobacco: Never Assessed Sex Assigned at Date Recorded Not on file documented as of this encounter Progress Notes Center, Message - 10/16/2005 3:48 PM CST Phone Note filed by [employer] at 01/19/11 0644 Author: [employer] Service: (none) Author Type: (none) Filed: 01/19/112349 Note Time: 10/16/058 Status: Signed Artillery Officer: [employer] Dr. Pavon- requested pt schedule colonoscopy. PT has not scheduled. GI is cancelling this request form. Thanks, GI Created on 16Oct2005 3:48pm by PAM CHAPMAN Acknowledged by JATINDER PAVON on 3:49pm TECHNICIAN MECHANIC documented in this encounter Plan of Treatment Not on filedocumented as of this encounter Visit Diagnoses Not on filedocumented in this encounter Care Teams Stoner Hand Relationship Specialty Start Date End Date Titus Medina MD PCP - General 09/16/1996 03/17/15 documented as of this encounter
--- OUTSIDE RECORDS SUMMARY | 2022-07-30 20:29 | XMS_ITS | Encounter Summary ---
:1945 Author Organization [facility] Address [address], [place] [address] Care Team Providers Name Role Phone Titus Medina MD Primary Care Provider Reason for Visit Reason Comments Other Encounter Details Date Type Department Care Team Description 02/09/2006 Telephone [facility], Message Other [address] [place], [place] [address] Social History Tobacco Use Types Packs/Day Years Used Date Smoking Tobacco: Never Assessed Sex Assigned at Date Recorded Not on file documented as of this encounter Progress Notes Ramin Barros RN - 02/09/2006 10:15 AM CDT Phone Note filed by Ramin Barros RN at 01/20/11346 Author: Ramin Barros RN Service: (none) Author Type: Registered Nurse Filed: 01/20/11346 Note Time: 02/09/06 1015 Status: Signed Hair Worker: Ramin Barros RN (Registered Nurse) Patient calling requesting a medication for pink eye. 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 Patient has red swollen painful eyes with a discharge per message left. Patient requesting a script be sent to [facility] [phone]. Please advise and will notify patient at [phone]. Created on 09Feb2006 10:15am by RAMIN BARROS On 09Feb2006 2:17pm JATINDER DAVENPORT wrote: faxed Rx Acknowledged by JATINDER DAVENPORT on 2:17pm On 09Feb2006 3:45pm RAMIN BARROS wrote: Message left on voice mail of above message. ET LUBRICATING MACHINE OPERATOR documented in this encounter Plan of Treatment Not on filedocumented as of this encounter Visit Diagnoses Not on filedocumented in this encounter Care Teams Steward/Stewardess Tourist Class Relationship Specialty Start Date End Date Titus Medina MD PCP - General 09/16/1996 03/17/15 documented as of this encounter
--- OUTSIDE RECORDS SUMMARY | 2022-07-30 20:29 | XMS_ITS | Encounter Summary ---
:1945 Author Organization [facility] Address [address] [place] [address] Care Team Providers Name Role Phone Titus Medina MD Primary Care Provider Encounter Details Date Type Department Care Team Description 12/03/2005 PN Conversion Only [facility] REPA[facility] 3900 CONV [address] [place] [address] Social History Tobacco Use Types Packs/Day Years Used Date Smoking Tobacco: Never Assessed Sex Assigned at Date Recorded Not on file documented as of this encounter Plan of Treatment Not on filedocumented as of this encounter Visit Diagnoses Not on filedocumented in this encounter Care Teams Wet Pour Mixer Relationship Specialty Start Date End Date Titus Medina MD PCP - General 09/16/1996 03/17/15 documented as of this encounter
--- OUTSIDE RECORDS SUMMARY | 2022-07-30 20:29 | XMS_ITS | Encounter Summary ---
:1945 Author Organization [facility] Address [address] [place] [address] Care Team Providers Name Role Phone Titus Medina MD Primary Care Provider Encounter Details Date Type Department Care Team Description 09/14/2006 Office Visit [place] [facility] Adi Jones, Therapy PT [address] [facility] [place], [place] [address] [place] [address] [phone] (Wo rk) Social History Tobacco Use Types Packs/Day Years Used Date Smoking Tobacco: Never Assessed Sex Assigned at Date Recorded Not on file documented as of this encounter Plan of Treatment Not on filedocumented as of this encounter Visit Diagnoses Not on filedocumented in this encounter Care Teams Customer Contact Sales Associate Relationship Specialty Start Date End Date Titus Medina MD PCP - General 09/16/1996 03/17/15 documented as of this encounter
--- OUTSIDE RECORDS SUMMARY | 2022-07-30 20:29 | XMS_ITS | Encounter Summary ---
:1945 Author Organization [facility] Address [address] [place] [address] Care Team Providers Name Role Phone Titus Medina MD Primary Care Provider Encounter Details Date Type Department Care Team Description 02/17/2006 Office Visit [facility] 3900 Ramon Reyes MD Ophthalmology [address] [place] [address] [place] [address] [phone] Social History Tobacco Use Types Packs/Day Years Used Date Smoking Tobacco: Never Assessed Sex Assigned at Date Recorded Not on file documented as of this encounter Plan of Treatment Not on filedocumented as of this encounter Visit Diagnoses Not on filedocumented in this encounter Care Teams Inside Sales Representative Relationship Specialty Start Date End Date Titus Medina MD PCP - General 09/16/1996 03/17/15 documented as of this encounter
--- OUTSIDE RECORDS SUMMARY | 2022-07-30 20:29 | XMS_ITS | Encounter Summary ---
:1945 Author Organization [facility] Address [address] [place] [address] Care Team Providers Name Role Phone Titus Medina MD Primary Care Provider Encounter Details Date Type Department Care Team Description 04/09/2006 Office Visit [place] [facility] Adi Jones, Therapy PT [address] [facility] [place], [place] [address] [place] [address] [phone] (Wo rk) Social History Tobacco Use Types [...]
--- OUTSIDE RECORDS SUMMARY | 2022-07-30 20:29 | XMS_ITS | Encounter Summary ---
:1945 Author Organization [facility] Address [address] [place] [address] Care Team Providers Name Role Phone Titus Medina MD Primary Care Provider Encounter Details Date Type Department Care Team Description 01/01/2006 Office Visit [place] [facility] Adi Jones, Therapy PT [address] [facility] [place], [place] [address] 4 [place] [address] [phone] (Wo rk) Social History Tobacco Use Types Packs/Day Years Used Date Smoking Tobacco: Never Assessed Sex Assigned at Date Recorded Not on file documented as of this encounter Plan of Treatment Not on filedocumented as of this encounter Visit Diagnoses Not on filedocumented in this encounter Care Teams Machine Repair Person Relationship Specialty Start Date End Date Titus Medina MD PCP - General 09/16/1996 03/17/15 documented as of this encounter
--- OUTSIDE RECORDS SUMMARY | 2022-07-30 20:29 | XMS_ITS | Encounter Summary ---
:1945 Author Organization [facility] Address [address] [place] [address] Care Team Providers Name Role Phone Titus Medina MD Primary Care Provider Encounter Details Date Type Department Care Team Description 09/21/2005 Office Visit [facility] 3800 Ear, Ramon Ariza MD Nose, and Throat [address] [facility] [address] [place] [address] [place], [place] [address] [phone] Social History Tobacco Use Types Packs/Day Years Used Date Smoking Tobacco: Never Assessed Sex Assigned at Date Recorded Not on file documented as of this encounter Progress Notes Ramon Ariza MD - 09/21/2005 12:01 AM CST Progress Notes signed by Ramon Ariza MD at 10/06/05 0908 Author: Ramon Ariza MD Service: (none) Author Type: Physician Filed: 01/23/11902 Note Time: 09/21/05 0001 Status: Signed Display Maker: Ramon Ariza MD (Physician) NAME: YIMI GARICA MR: [id number] ACCT: [id number] VISIT: [id number] DICTATING CLINICIAN: RAMON ARIZA MD JOB: [id number] CLINIC PROGRESS NOTE DATE OF VISIT: 09/21/2005 [...] dryness. Would not recommend further surgical intervention. [id number] C: 09/22/05 15:19 DOCUMENT: [id number] IRATORY THERAPIST documented in this encounter Plan of Treatment Not on filedocumented as of this encounter Visit Diagnoses Not on filedocumented in this encounter Care Teams Mirror Machine Feeder Relationship Specialty Start Date End Date Titus Medina MD PCP - General 09/16/1996 03/17/15 documented as of this encounter
--- OUTSIDE RECORDS SUMMARY | 2022-07-30 20:29 | XMS_ITS | Encounter Summary ---
:1945 Author [facility] Address [address] [place] [address] Care Team Providers Name Role Phone Titus [...] on filedocumented in this encounter Care Teams Fence Post Cutter Relationship Specialty Start Date End Date Titus Medina MD PCP - General 09/16/1996 03/17/15 documented as of this encounter
--- OUTSIDE RECORDS SUMMARY | 2022-07-30 20:29 | XMS_ITS | Encounter Summary ---
:1945 Author Organization [facility] Address [address] [place] [address] Care Team Providers Name Role Phone Titus Medina MD Primary Care Provider Encounter Details Date Type Department Care Team Description 05/04/2006 Office Visit CONV P3900 Airam Hanks MD [address] D [address] [place] [address] [place], [place] [id number] Social History Tobacco Use Types Packs/Day Years [...] 1332 Note Time: 05/04/06 0001 Status: Signed Specialty Sales Consultant: Airam Braun MD (Physician) NAME: YIMI GARCIA MR: [id number] ACCT: [id number] VISIT: [id number] DICTATING CLINICIAN: AIRAM BRAUN MD JOB: [id number] LOC: 458 CLINIC PROGRESS NOTE DATE OF [...] is intact. She will consider those options. MC:[id number] C: 06/28/06 16:56 DOCUMENT: [id number] documented in this encounter Plan of Treatment Not on filedocumented as of this encounter Visit Diagnoses Not on filedocumented in this encounter Care Teams Lead Ios Developer Relationship Specialty Start Date End Date Titus Medina MD PCP - General 09/16/1996 03/17/15 documented as of this encounter
--- OUTSIDE RECORDS SUMMARY | 2022-07-30 20:29 | XMS_ITS | Encounter Summary ---
:1945 Author Organization [facility] Address [address] [place] [address] Care Team Providers Name Role Phone Titus Medina MD Primary Care Provider Encounter Details Date Type Department Care Team Description 02/09/2006 Office Visit [place] [facility] Adi Jones, [facility] PT [facility] [address] [place], [place] [address] [place] [address] [phone] (Wo rk) Social History Tobacco Use Types Packs/Day Years Used Date Smoking Tobacco: Never Assessed Sex Assigned at Date Recorded Not on file documented as of this encounter Plan of Treatment Not on filedocumented as of this encounter Visit Diagnoses Not on filedocumented in this encounter Care Teams Director Of Solutions Architecture Relationship Specialty Start Date End Date Titus Medina MD PCP - General 09/16/1996 03/17/15 documented as of this encounter
--- OUTSIDE RECORDS SUMMARY | 2022-07-30 20:29 | XMS_ITS | Encounter Summary ---
:1945 Author Organization [facility] Address [address] [place] [address] Care Team Providers Name Role Phone Titus Medina MD Primary Care Provider Encounter Details Date Type Department Care Team Description 09/17/2005 PN Conversion Only [facility] 3900 CONV [address] [place] [address] Social History Tobacco Use Types Packs/Day Years Used Date Smoking Tobacco: Never Assessed Sex Assigned at Date Recorded Not on file documented as of this encounter Plan of Treatment Not on filedocumented as of this encounter Visit Diagnoses Not on filedocumented in this encounter Care Teams Recruiting Operations Consultant Relationship Specialty Start Date End Date Titus Medina MD PCP - General 09/16/1996 03/17/15 documented as of this encounter
--- OUTSIDE RECORDS SUMMARY | 2022-07-30 20:29 | XMS_ITS | Encounter Summary ---
:1945 Author Organization [facility] Address [address] [place] [address] Care Team Providers Name Role Phone Titus Medina MD Primary Care Provider Encounter Details Date Type Department Care Team Description 11/26/2005 Office Visit [facility] Lucero Gonzalez, [address] Juliano Abdalla MD [address] [place] [address] [place], [place] [address] (Wo rk) Social History Tobacco Use Types Packs/Day Years Used Date Smoking Tobacco: Never Assessed Sex Assigned at Date Recorded Not on file documented as of this encounter Last Filed Vital Signs Vital Sign Reading Time Taken Comments Blood Pressure 138/74 11/26/2005 4:26 PM ELECTRICIAN SUBSTATION SUPERVISOR Pulse 68 11/26/2005 4:26 PM C: Radial Reg ular ELECTRICIAN SUBSTATION SUPERVISOR Temperature - - Respiratory Rate - - Oxygen Saturation - - Inhaled Oxygen - - Concentration Weight 84.8 kg (186 lb 15.9 11/26/2005 4:26 PM C: 84.8k g oz) ELECTRICIAN SUBSTATION SUPERVISOR Height - - Body Mass Index 29.29 05/28/2005 2:51 PM CDT documented in this encounter Progress Notes Lucero Zamora MD - 11/26/2005 12:01 AM CST Progress Notes signed by Balbir Cassidy MD at 12/17/05 1359 Author: Lucero Zamora MD Service: (none) Author Type: Physician Filed: 01/23/11 1025 Note Time: 11/26/05 0001 Status: Signed Straddle Buggy Operator: Lucero Zamora MD (Physician) NAME: YIMI GARCIA MR: [id number] ACCT: [id number] VISIT: [id number] DICTATING CLINICIAN: LUCERO ZAMORA MD JOB: [id number] CLINIC PROGRESS NOTE DATE OF VISIT: 11/26/2005 [...] incontinence or fevers. Precepted with Dr. Balbir Cassidy. [id number] C: 11/27/05 17:48 DOCUMENT: [id number] TRICIAN SUBSTATION SUPERVISOR documented in this encounter Plan of Treatment Not on filedocumented as of this encounter Visit Diagnoses Not on filedocumented in this encounter Care Teams Leather Scrubber Relationship Specialty Start Date End Date Titus Medina MD PCP - General 09/16/1996 03/17/15 documented as of this encounter
--- OUTSIDE RECORDS SUMMARY | 2022-07-30 20:29 | XMS_ITS | Encounter Summary ---
:1945 Author Organization [facility] Address [address] [place] [address] Care Team Providers Name Role Phone Titus Medina MD Primary Care Provider Encounter Details Date Type Department Care Team Description 12/10/2005 PN Conversion Only [facility] [address] [place], [place] [address] Social History Tobacco Use Types Packs/Day Years Used Date Smoking Tobacco: Never Assessed Sex Assigned at Date Recorded Not on file documented as of this encounter Plan of Treatment Not on filedocumented as of this encounter Procedures Procedure Name Priority Date/Time Associated Diagnosis Comme nts MM US BREAST UNILAT Routine 12/10/2005 7:54 AM Re sults for this ([facility]) PILLAR MAN procedure are i n the results section. documented in this encounter Results MM US Breast Unilat ([facility]) (12/10/2005 7:54 AM PILLAR MAN) Anatomical Region Laterality Modality Breast Ultrasound Specimen (Source) Anatomical Location Collection Method / Collectio n Time Received Time / Laterality Volume Narrative 12/10/2005 3:41 PM PILLAR MAN Patient has cluster of three small very [...] 1 . ??ACR-BIRADS CATEGORY 2: Benign finding. 497906/yc Dictating RAJINDER FULLER RADIOLOGIST Procedure Note Rajinder [...] 1 . ACR-BIRADS CATEGORY 2: Benign finding. 453929/yc Dictating RAJINDER FULLER RADIOLOGIST Margot Pavon MD RAD VESNA documented in this encounter Visit Diagnoses Not on filedocumented in this encounter Care Teams Collateral Clerk Relationship Specialty Start Date End Date Titus Medina MD PCP - General 09/16/1996 03/17/15 documented as of this encounter
--- OUTSIDE RECORDS SUMMARY | 2022-07-30 20:29 | XMS_ITS | Encounter Summary ---
:1945 Author Organization [facility] Address [address] [place] [address] Care Team Providers Name Role Phone Titus Medina MD Primary Care Provider Encounter Details Date Type Department Care Team Description 01/22/2006 Office Visit [facility] [address] Contact Jaclyn Olivia [address] [place] [address] [place], [place] [address] [phone] Social History Tobacco Use Types Packs/Day Years Used Date Smoking Tobacco: Never Assessed Sex Assigned at Date Recorded Not on file documented as of this encounter Plan of Treatment Not on filedocumented as of this encounter Visit Diagnoses Not on filedocumented in this encounter Care Teams Line Supervisor Relationship Specialty Start Date End Date Titus Medina MD PCP - General 09/16/1996 03/17/15 documented as of this encounter
--- OUTSIDE RECORDS SUMMARY | 2022-07-30 20:29 | XMS_ITS | Encounter Summary ---
:1945 Author Organization [facility] Address [address] [place] [address] Care Team Providers Name Role Phone Titus Medina MD Primary Care Provider Encounter Details Date Type Department Care Team Description 03/26/2006 Office Visit [place] [facility] Adi Jones, Therapy PT [address] [facility] [address] [place], [place] [address] 4 [place] [address] [phone] (Wo rk) Social History Tobacco Use Types Packs/Day Years Used Date Smoking Tobacco: Never Assessed Sex Assigned at Date Recorded Not on file documented as of this encounter Plan of Treatment Not on filedocumented as of this encounter Visit Diagnoses Not on filedocumented in this encounter Care Teams Net Mender Relationship Specialty Start Date End Date Titus Medina MD PCP - General 09/16/1996 03/17/15 documented as of this encounter
--- OUTSIDE RECORDS SUMMARY | 2022-07-30 20:29 | XMS_ITS | Encounter Summary ---
:1945 Author Organization [facility] Address [address] [place] [address] Care Team Providers Name Role Phone Titus Medina MD Primary Care Provider Encounter Details Date Type Department Care Team Description 02/23/2006 Office Visit [facility] Jatinder Hi MD [address] [place] [address] [phone] Social History Tobacco Use Types Packs/Day Years Used Date Smoking Tobacco: Never Assessed Sex Assigned at Date Recorded Not on file documented as of this encounter Last Filed Vital Signs Vital Sign Reading Time Taken Comments Blood Pressure 130/70 02/23/2006 4:39 PM CDT Pulse 84 02/23/2006 4:39 PM CDT Temperature - - Respiratory Rate - - Oxygen Saturation - - Inhaled Oxygen Concentration - - Weight 86.2 kg (189 lb 15.9 oz) 02/23/2006 4:39 PM CDT C: 86.2kg Height - - Body Mass Index 29.76 05/28/2005 2:51 PM CDT documented in this encounter Progress Notes Jatinder Pavon MD - 02/23/2006 12:01 AM CDT Progress Notes signed by Jatinedr Pavon MD at 03/09/06 1050 Author: Jatinder Pavon MD Service: (none) Author Type: Physician Filed: 01/23/11 1213 Note Time: 02/23/06 0001 Status: Signed Sr. Merchandise Planner: Jatinder Pavon MD (Physician) NAME: YIMI GARCIA MR: [id number] ACCT: [id number] VISIT: [id number] DICTATING CLINICIAN: JATINDER PAVON MD JOB: [id number] CLINIC PROGRESS NOTE DATE OF VISIT: 02/23/2006 SUBJECTIVE: Chief Complaint: Followup back and leg pain. A 60-year-old female here for followup. She has had physical therapy for her back and her back is improving, but it is becoming clear that there are also issues with her leg and feet. She has bilateral plantar fasciitis and metatarsal pain as well and is seeing physical therapy for that with some help. Along with the physical therapy and massage she has also started some acupuncture, would like a letter so that she can use her health care savings money for those that are not covered by her insurance. She is seeing some gradual improvement in her symptoms. She had lost weight last year with [email or web address], has gained weight again over the past year, a total of about 17 pounds, is disappointed with this, but is motivated to get back on a diet and lose weight again. She is having menopausal symptoms. She was in a study at the [facility] with mushrooms and hot flashes, the study is over. She is using estrogen cream for topical dryness. Not on any other supplements for menopausal symptoms and does not feel the need to be. Colon cancer screening is due and we discussed that. OBJECTIVE: VS: BP: 130/70. P: 84. Wt: 190. She is in no acute distress. Has fairly good range of motion in her back, a little bit of muscle tightness there. Has some pain in her metatarsals with a little bit of loss of the fat pad and some plantar fascial pain at the calcaneus. Normal gait and station. ASSESSMENT: 1. Mechanical back pain. 2. Plantar fasciitis. 3. Menopausal symptoms. 4. Obesity. PLAN: Refilled her estrogen cream. Continue physical therapy as needed. Discussed weight loss management. Letter given for use of health care dollars. Follow up with me as needed. FAMILIA:[id number] C: 03/09/06 09:41 DOCUMENT: [id number] documented in this encounter Plan of Treatment Not on filedocumented as of this encounter Visit Diagnoses Not on filedocumented in this encounter Care Teams Manager Educational Relationship Specialty Start Date End Date Titus Medina MD PCP - General 09/16/1996 03/17/15 documented as of this encounter
--- OUTSIDE RECORDS SUMMARY | 2022-07-30 20:30 | XMS_ITS | Encounter Summary ---
:1945 [facility] Address [address] [place] [address] Care Team Providers Name Role Phone Titus Medina MD Primary Care Provider Encounter Details Date Type Department Care Team Description 02/26/2005 Procedure Visit [facility] 3800 Edward Smith MD Density 3800 [facility] [address] [facility] [place] [address] [phone] (Wo rk) Social History Tobacco Use Types [...] 0511 Note Time: 02/26/05 0001 Status: Signed Physicist Nuclear: Edward Anderson MD (Physician) NAME: YIMI GARCIA MR: [id number] ACCT: [id number] VISIT: [id number] DICTATING CLINICIAN: EDWARD ANDERSON MD JOB: [id number] CLINIC DEXA REPORT DATE OF VISIT: 02/26/2005 [...] years. FINAL IMPRESSION: Bone density on [facility] [place] C. [id number] C: 03/05/05 08:09 DOCUMENT: [id number] documented in this encounter Plan of Treatment Not on filedocumented as of this encounter Visit Diagnoses Not on filedocumented in this encounter Care Teams Crisis Clinician Relationship Specialty Start Date End Date Titus Medina MD PCP - General 09/16/1996 03/17/15 documented as of this encounter
--- OUTSIDE RECORDS SUMMARY | 2022-07-30 20:30 | XMS_ITS | Encounter Summary ---
:1945 Author Organization [facility] Address [address], [place] [address] Care Team Providers Name Role Phone Titus Medina MD Primary Care Provider Reason for Visit Reason Comments Other Encounter Details Date Type Department Care Team Description 07/14/2005 Telephone [facility] 3850 [facility] Care Melissa Shetty RN Other [address] [facility] [place] [place] [address] Social History Tobacco Use Types Packs/Day Years Used Date Smoking Tobacco: Never Assessed Sex Assigned at Date Recorded Not on file documented as of this encounter Progress Notes Melissa Shetty RN - 07/14/2005 9:20 PM CDT Phone Note filed by Melissa Shetty RN at 01/19/112119 Author: Melissa Shetty RN Service: (none) Author Type: Registered Nurse Filed: 01/19/112119 Note Time: 07/14/052119 Status: Signed Twine Winder: Melissa Shetty RN (Registered Nurse) Phone Care [...] Created on 14Jul2005 9:20pm by MELISSA SHETTY ER WIPER documented in this encounter Plan of Treatment Not on filedocumented as of this encounter Visit Diagnoses Not on filedocumented in this encounter Care Teams White Sugar Pan Tank Operator Relationship Specialty Start Date End Date Titus Medina MD PCP - General 09/16/1996 03/17/15 documented as of this encounter
--- OUTSIDE RECORDS SUMMARY | 2022-07-30 20:30 | XMS_ITS | Encounter Summary ---
:1945 Author Organization [facility] Address [address] [place] [address] Care Team Providers Name Role Phone Titus Medina MD Primary Care Provider Encounter Details Date Type Department Care Team Description 07/20/2005 Nursing Visit [facility] Nando Holt MD [address] [place] [address] [phone] Social History Tobacco Use Types Packs/Day Years Used Date Smoking Tobacco: Never Assessed Sex Assigned at Date Recorded Not on file documented as of this encounter Plan of Treatment Not on filedocumented as of this encounter Visit Diagnoses Not on filedocumented in this encounter Care Teams Veterinary Technician Instructor Relationship Specialty Start Date End Date Titus Medina MD PCP - General 09/16/1996 03/17/15 documented as of this encounter
--- OUTSIDE RECORDS SUMMARY | 2022-07-30 20:30 | XMS_ITS | Encounter Summary ---
:1945 Author Organization [facility] Address [address] [place] [address] Care Team Providers Name Role Phone Titus Medina MD Primary Care Provider Encounter Details Date Type Department Care Team Description 03/23/2005 Office Visit [facility] 3800 Ear, Ramon Ariza MD Nose, and Throat [address] [facility] [place] [address] [place], [place] [address] [phone] Social History Tobacco Use Types Packs/Day Years Used Date Smoking Tobacco: Never Assessed Sex Assigned at Date Recorded Not on file documented as of this encounter Progress Notes Ramon Ariza MD - 03/23/2005 12:01 AM CDT Progress Notes signed by Ramon Ariza MD at 06/02/05 0753 Author: Ramon Ariza MD Service: (none) Author Type: Physician Filed: 01/23/11 0535 Note Time: 03/23/05 0001 Status: Signed Machined Parts Metal Sprayer: Ramon Ariza MD (Physician) NAME: YIMI GARCIA MR: [id number] ACCT: [id number] VISIT: [id number] DICTATING CLINICIAN: RAMON ARIZA MD JOB: [id number] CLINIC PROGRESS NOTE DATE OF VISIT: 03/23/2005 SUBJECTIVE: Ms. Garcia presents for submucous resection of the inferior turbinates, the radiofrequency technique. After discussing the risks, benefits, and alternatives, she did desire to proceed. OBJECTIVE: The left inferior turbinate was injected with 2% Xylocaine without epinephrine. The inferior turbinate was then approached in the standard fashion with the application of the radiofrequency probe, in the anterior, middle, and posterior parts of the inferior turbinate; 300 joules were applied at each site. This was also done on the patient's right side. She tolerated this well. ASSESSMENT: PLAN: I will see her back in 6 weeks. SMC:[id number] C: 03/23/05 17:09 DOCUMENT: [id number] documented in this encounter Plan of Treatment Not on filedocumented as of this encounter Visit Diagnoses Not on filedocumented in this encounter Care Teams Coffee Maker Relationship Specialty Start Date End Date Titus Medina MD PCP - General 09/16/1996 03/17/15 documented as of this encounter
--- OUTSIDE RECORDS SUMMARY | 2022-07-30 20:30 | XMS_ITS | Encounter Summary ---
:1945 Author Organization [facility] Address [address] [place] [address] Care Team Providers Name Role Phone Titus Medina MD Primary Care Provider Encounter Details Date Type Department Care Team Description 03/27/2005 Office Visit [facility] Jatinder Hi MD [address] [employer] [address] [place] [address] [phone] Social History Tobacco Use Types Packs/Day Years [...] signed by Jatinder Pavon MD at 04/18/05 8033 Author: Jatinder Pavon MD Service: (none) Author Type: Physician Filed: 01/23/11 0542 Note Time: 03/27/05 0001 Status: Signed Fire Suppression Captain: Jatinder Pavon MD (Physician) NAME: YIMI GARCIA MR: [id number] ACCT: [id number] VISIT: [id number] DICTATING CLINICIAN: JATINDER PAVON MD JOB: [id number] CLINIC PROGRESS NOTE DATE OF VISIT: 03/27/2005 [...] that it is necessary at this point. FAMILIA:[id number] C: 04/01/05 12:47 DOCUMENT: [id number] documented in this encounter Plan of Treatment Not on filedocumented as of this encounter Visit Diagnoses Not on filedocumented in this encounter Care Teams Deputy Sheriff/Investigator Relationship Specialty Start Date End Date Titus Medina MD PCP - General 09/16/1996 03/17/15 documented as of this encounter
--- OUTSIDE RECORDS SUMMARY | 2022-07-30 20:30 | XMS_ITS | Encounter Summary ---
:1945 Author Organization [facility] Address [address] [place] [address] Care Team Providers Name Role Phone Titus Medina MD Primary Care Provider Reason for Visit Reason Comments Other Encounter Details Date Type Department Care Team Description 02/25/2005 Telephone [facility] 3800 Ear, Ramon Ariza MD Other Nose, and Throat [address] [facility] [place] [address] [place], [place] [address] [phone] Social History Tobacco Use Types Packs/Day Years Used Date Smoking Tobacco: Never Assessed Sex Assigned at Date Recorded Not on file documented as of this encounter Progress Notes Parul Torres RN - 02/25/2005 10:30 AM CDT Phone Note filed by Parul Torres RN at 01/19/111827 Author: Parul Torres RN Service: (none) Author Type: Registered Nurse Filed: 01/19/111827 Note Time: 02/25/05 1030 Status: Signed Director Of Patient Care: Parul Torres RN (Registered Nurse) pt calling for a new script for Astelin nasal spray 30ml. Per verbal order faxed Astelin script to [facility]. Created on 25Feb2005 10:30am by PARUL TORRES Acknowledged by RAMON ARIZA on 11:46am OGRAPHER ANGIOGRAM documented in this encounter Plan of Treatment Not on filedocumented as of this encounter Visit Diagnoses Not on filedocumented in this encounter Care Teams Claims Processor Relationship Specialty Start Date End Date Titus Medina MD PCP - General 09/16/1996 03/17/15 documented as of this encounter
--- OUTSIDE RECORDS SUMMARY | 2022-07-30 20:30 | XMS_ITS | Encounter Summary ---
:1945 Author Organization [facility] Address [address] [address] Care Team Providers Name Role Phone Titus Medina MD Primary Care Provider Encounter Details Date Type Department Care Team Description 06/11/2005 PN Conversion Only [facility] [address] [place] [address] Social History Tobacco Use Types Packs/Day Years [...] CATEGORY 0: Need additional i maging evaluation. [id number] Dictating DIO EDWARDS RADIOLOGIST Procedure Note Dio [...] CATEGORY 0: Need additional i maging evaluation. [id number] Dictating DIO EDWARDS RADIOLOGIST Margot Pavon MD RAD VESNA documented in this encounter Visit Diagnoses Not on filedocumented in this encounter Care Teams Visual Merchandising Coordinator Relationship Specialty Start Date End Date Titus Medina MD PCP - General 09/16/1996 03/17/15 documented as of this encounter
--- OUTSIDE RECORDS SUMMARY | 2022-07-30 20:30 | XMS_ITS | Encounter Summary ---
:1945 Author Organization [facility] Address [address] [place] [address] Care Team Providers Name Role Phone Titus Medina MD Primary Care Provider Encounter Details Date Type Department Care Team Description 07/02/2005 Office Visit [facility] Jatinder Hi MD [address] [place] [address] [phone] Social History Tobacco Use Types Packs/Day Years Used Date Smoking Tobacco: Never Assessed Sex Assigned at Date Recorded Not on file documented as of this encounter Progress Notes Jatinder Pavon MD - 07/02/2005 12:01 AM CDT Progress Notes signed by Jatinder Pavon MD at 07/29/05 0805 Author: Jatinder Pavon MD Service: (none) Author Type: Physician Filed: 01/23/11 0727 Note Time: 07/02/052014 Status: Signed Die Casting Machine Maintainer: Jatinder Pavon MD (Physician) NAME: YIMI GARCIA MR: [id number] ACCT: [id number] VISIT: [id number] DICTATING CLINICIAN: JATINDER PAVON MD JOB: [id number] CLINIC PROGRESS NOTE DATE OF VISIT: 07/02/2005 [...] improving her fibrocystic breast symptoms as well. FAMILIA:[id number] C: 07/27/05 12:25 DOCUMENT: [id number] documented in this encounter Plan of Treatment Not on filedocumented as of this encounter Visit Diagnoses Not on filedocumented in this encounter Care Teams Senior Security Analyst Relationship Specialty Start Date End Date Titus Medina MD PCP - General 09/16/1996 03/17/15 documented as of this encounter
--- OUTSIDE RECORDS SUMMARY | 2022-07-30 20:30 | XMS_ITS | Encounter Summary ---
:1945 Author Organization [facility] Address [address] [place] [address] Care Team Providers Name Role Phone Titus Medina MD Primary Care Provider Encounter Details Date Type Department Care Team Description 04/16/2005 PN Conversion Only [facility] [address] [place], [place] [address] Social History Tobacco Use Types Packs/Day Years [...] BIRADS CATEGORY 0: Need additional imaging evaluation. [id number] Dictating DIO EDWARDS RADIOLOGIST Narrative 04/20/2005 2:56 [...] original. Comparison is with the September 03 [facility]. The study is scanned by a [...] BIRADS CATEGORY 0: Need additional imaging evaluation. [id number] Dictating DIO EDWARDS RADIOLOGIST Margot Pavon MD RAD VESNA documented in this encounter Visit Diagnoses Not on filedocumented in this encounter Care Teams Special Events Director Relationship Specialty Start Date End Date Titus Medina MD PCP - General 09/16/1996 03/17/15 documented as of this encounter
--- OUTSIDE RECORDS SUMMARY | 2022-07-30 20:30 | XMS_ITS | Encounter Summary ---
:1945 Author Organization [facility] Address [address], [place] [address] Care Team Providers Name Role Phone Titus Medina MD Primary Care Provider Reason for Visit Reason Comments Other Encounter Details Date Type Department Care Team Description 12/01/2004 Telephone [facility] [address] [facility], Message Other [address] [place], [place] [id number] Social History Tobacco Use Types Packs/Day Years Used Date Smoking Tobacco: Never Assessed Sex Assigned at Date Recorded Not on file documented as of this encounter Progress Notes Alyssa Draper - 12/01/2004 2:48 PM CST Phone Note filed by Alyssa Draper RN at 01/19/111657 Author: Alyssa Draper RN Service: (none) Author Type: (none) Filed: 01/19/111657 Note Time: 12/01/041447 Status: Signed Transportation Worker: Winnie Martinez Pt requesting refills on Guiafenex LA 600. 1 tab po bid. Last dictation states return prn, do you want this refilled? And how many times? [facility] [place], tel: [phone] Created on 01Dec2004 2:48pm by ALYSSA DRAPER [...] on filedocumented in this encounter Care Teams Travel Accommodations Rater Relationship Specialty Start Date End Date Titus Medina MD PCP - General 09/16/1996 03/17/15 documented as of this encounter
--- OUTSIDE RECORDS SUMMARY | 2022-07-30 20:30 | XMS_ITS | Encounter Summary ---
:1945 Author Organization [facility] Address [address] [place] [address] Care Team Providers Name Role Phone Titus Medina MD Primary Care Provider Encounter Details Date Type Department Care Team Description 06/12/2005 PN Conversion Only [facility] [address] [place], [place] [address] Social History Tobacco Use Types Packs/Day Years Used Date Smoking Tobacco: Never Assessed Sex Assigned at Date Recorded Not on file documented as of this encounter Plan of Treatment Not on filedocumented as of this encounter Procedures Procedure Name Priority Date/Time Associated Diagnosis Comme nts MM US BREAST UNILAT Routine 06/12/2005 8:15 AM Re sults for this ([facility]) CDT procedure are i n the results section. documented in this encounter Results MM US Breast Unilat ([facility]) (06/12/2005 8:15 AM CDT) Anatomical Region Laterality Modality Breast Ultrasound Specimen (Source) Anatomical Location Collection Method / Collectio n Time Received Time / Laterality Volume Impressions 06/15/2005 9:10 AM CDT : ??Right breast ACR-BIRADS CATEGORY 3: ??Probably benign finding - short interval follow-up. ??Sh ort-term interval followup recommended. ??Repeat right breast ultra sound in 6 months is recommended to reassess the area at the 9:30 o'clock position in the anterior part of the right breast in zon e 1, seen by ultrasound today. [id number] Dictating TIGRE MARTINS Radiologist Narrative 06/15/2005 9:10 AM CDT FINDINGS: ??The patient had a small oval density in the lateral anterior part of the right breast on the craniocaudal view only of the screening mammogram of 04/16/2005. ? ?Spot compression of the right breast in the craniocaudal projection an d diffuse compression craniocaudal and true lateral views of t he right breast were obtained on 06/11/2005 and showed probable resolu tion of the finding. Ultrasound is being done for further kathy luation. There is an area of mildly inhomogeneous probable fibrocystic change in the right breast at the 9:30 o'clock position in the anterior part of the right breast in zone 1. ??This me asures 23 x 11 x 15 mm in size and has no hyperemia on color flow Doppl er. ??It appears to be a probably benign finding by ultrasound. Review of the mammogram images and rylan rison of those of 06/11/2005 and 04/16/2005 to 09/26/2001 shows no in terval change. ??A few benign calcifications are scattered in the righ t breast and the heterogeneously dense tissue appears live ign. Procedure Note Tigre Carver - 12/05/2016Formatti ng of this note might be different from the original. FINDINGS: The patient had a small oval d ensity in the lateral anterior part of the right breast on the craniocaudal view only of the screening mammogram of 04/16/2005. S pot compression of the right breast in the craniocaudal projection an d diffuse compression craniocaudal and true lateral views of t he right breast were obtained on 06/11/2005 and showed probable resolu tion of the finding. Ultrasound is being done for further kathy luation. There is an area of mildly inhomogeneous probable fibrocystic change in the right breast at the 9:30 o'clock position in the anterior part of the right breast in zone 1. This onofre ures 23 x 11 x 15 mm in size and has no hyperemia on color flow Doppl er. It appears to be a probably benign finding by ultrasound. Review of the mammogram images and rylan rison of those of 06/11/2005 and 04/16/2005 to 09/26/2001 shows no in terval change. A few benign calcifications are scattered in the righ t breast and the heterogeneously dense tissue appears live ign. IMPRESSION : Right breast ACR-BIRADS CATEGORY 3: Pr obably benign finding - short interval follow-up. Shor t-term interval followup recommended. Repeat right breast ultraso und in 6 months is recommended to reassess the area at the 9:30 o'clock position in the anterior part of the right breast in zon e 1, seen by ultrasound today. [id number] Dictating TIGRE MARTINS Radiologist Margot Pavon MD RAD VESNA documented in this encounter Visit Diagnoses Not on filedocumented in this encounter Care Teams Customer Account Technician Relationship Specialty Start Date End Date Titus Medina MD PCP - General 09/16/1996 03/17/15 documented as of this encounter
--- OUTSIDE RECORDS SUMMARY | 2022-07-30 20:30 | XMS_ITS | Encounter Summary ---
:1945 Author Organization [facility] Address [address] [place] [address] Care Team Providers Name Role Phone Titus Medina MD Primary Care Provider Encounter Details Date Type Department Care Team Description 06/23/2005 Office Visit [facility] Adi Jones, Therapy PT [address] [facility] [address] [place], [place] [address] [place] [address] [phone] (Wo rk) Social History Tobacco Use Types Packs/Day Years Used Date Smoking Tobacco: Never Assessed Sex Assigned at Date Recorded Not on file documented as of this encounter Plan of Treatment Not on filedocumented as of this encounter Visit Diagnoses Not on filedocumented in this encounter Care Teams Dumping Machine Operator Relationship Specialty Start Date End Date Titus Medina MD PCP - General 09/16/1996 03/17/15 documented as of this encounter
--- OUTSIDE RECORDS SUMMARY | 2022-07-30 20:30 | XMS_ITS | Encounter Summary ---
:1945 Author Organization [facility] Address [address] [place] [address] Care Team Providers Name Role Phone Titus Medina MD Primary Care Provider Encounter Details Date Type Department Care Team Description 07/20/2005 Office Visit [facility] 3800 Ear, Ramon Ariza MD Nose, and Throat [address] [facility] [place] [address] [place], [place] [address] [phone] Social History Tobacco Use Types Packs/Day Years Used Date Smoking Tobacco: Never Assessed Sex Assigned at Date Recorded Not on file documented as of this encounter Progress Notes Ramon Ariza MD - 07/20/2005 12:01 AM CDT Progress Notes signed by Ramon Ariza MD at 08/03/05 0813 Author: Ramon Ariza MD Service: (none) Author Type: Physician Filed: 01/23/11 0747 Note Time: 07/20/052014 Status: Signed Transportation Dispatcher: Ramon Ariza MD (Physician) NAME: YIIM GARCIA MR: [id number] ACCT: [id number] VISIT: [id number] DICTATING CLINICIAN: RAMON ARIZA MD JOB: [id number] CLINIC PROGRESS NOTE DATE OF VISIT: 07/20/2005 SUBJECTIVE: Ms. Garcia presents for follow up. Status post somnoplasty, submucous resection of the turbinates. She is doing very well. OBJECTIVE: Physical exam shows turbinates to be in good position. They are not overly enlarged and the nasal cavities are patent. ASSESSMENT: Doing well. PLAN: See above. SMC:[id number] C: 07/22/05 07:15 DOCUMENT: [id number] H OPERATOR documented in this encounter Plan of Treatment Not on filedocumented as of this encounter Visit Diagnoses Not on filedocumented in this encounter Care Teams Prescription Benefit Specialist Relationship Specialty Start Date End Date Titus Medina MD PCP - General 09/16/1996 03/17/15 documented as of this encounter
--- OUTSIDE RECORDS SUMMARY | 2022-07-30 20:30 | XMS_ITS | Encounter Summary ---
:1945 Author Organization [facility] Address [address] [place] [address] Care Team Providers Name Role Phone Titus Medina MD Primary Care Provider Reason for Visit Reason Comments Other Encounter Details Date Type Department Care Team Description 07/23/[address] [facility] Ramin Landry RN Other [address] [employer] , [address] [place], [place] [address] Social History Tobacco Use Types Packs/Day Years Used Date Smoking Tobacco: Never Assessed Sex Assigned at Date Recorded Not on file documented as of this encounter Progress Notes Ramin Barros RN - 07/23/2005 11:15 AM CDT Phone Note filed by Ramin Barros RN at 01/19/112134 Author: Ramin Barros RN Service: (none) Author Type: Registered Nurse Filed: 01/19/112134 Note Time: 07/23/051114 Status: Signed Air Hose Coupler: Ramin Barros RN (Registered Nurse) Phone Care Triage Note [facility] Respiratory/URI Reference - Adult IMPRESSION: Respiratory Symptom [...] as directed on package. Information given per: [facility] URI Nursing Reference Advised to callback if any of the following occur: symptoms worsen, symptoms do not improve with home management, PLAN: Patient will call back and make an appt when transportation is arranged. Patient/Caller agrees with plan and denies additional questions. Denies any emergent, urgent symptoms Call Complete. Created on 23Jul2005 11:15am by RAMIN BARROS AIGN COORDINATOR documented in this encounter Plan of Treatment Not on filedocumented as of this encounter Visit Diagnoses Not on filedocumented in this encounter Care Teams Operational Risk Manager Relationship Specialty Start Date End Date Titus Medina MD PCP - General 09/16/1996 03/17/15 documented as of this encounter
--- OUTSIDE RECORDS SUMMARY | 2022-07-30 20:30 | XMS_ITS | Encounter Summary ---
:1945 Author Organization [facility] Address [address] [place] [address] Care Team Providers Name Role Phone Titus Medina MD Primary Care Provider Encounter Details Date Type Department Care Team Description 05/28/2005 Office Visit [facility] Jatinder Hi MD [address] [place] [address] [place] [id number] [phone] Social History Tobacco Use Types Packs/Day Years [...] 01/23/11 0648 Note Time: 05/28/052014 Status: Signed Jewelry Bench Molder: Jatinder Pavon MD (Physician) NAME: YIMI GARCIA MR: [id number] ACCT: [id number] VISIT: [id number] DICTATING CLINICIAN: JATINDER PAVON MD JOB: [id number] CLINIC PROGRESS NOTE DATE OF VISIT: 05/28/2005 SUBJECTIVE: Chief Complaint: Physical. This 59-year-old female is here for routine physical. She is overall feeling very well, does not have any active concerns. PAST MEDICAL HISTORY: She has cystocele. She is planning on having a bladder repair next summer. She is due for colonoscopy, which she will have done at [place]. She is on Vivelle and Prometrium but [...] cancer, pancreatic cancer, heart failure, and osteoporosis. NURSING ATTENDANT: She has one child. She is postmenopausal [...] guidance given about stopping hormone replacement therapy. FAMILIA:[id number] C: 06/22/05 09:01 DOCUMENT: [id number] documented in this encounter Plan of Treatment Not on filedocumented as of this encounter Visit Diagnoses Not on filedocumented in this encounter Care Teams Recycle Worker Relationship Specialty Start Date End Date Titus Medina MD PCP - General 09/16/1996 03/17/15 documented as of this encounter
--- OUTSIDE RECORDS SUMMARY | 2022-07-30 20:30 | XMS_ITS | Encounter Summary ---
:1945 Author Organization [facility] Address [address] [place] [address] Care Team Providers Name Role Phone Titus Medina MD Primary Care Provider Reason for Visit Reason Comments Other Encounter Details Date Type Department Care Team Description 02/16/[address] [facility] [address] [employer] [place], Message Other [address] [place], [place] [address] Social History Tobacco Use Types Packs/Day Years Used Date Smoking Tobacco: Never Assessed Sex Assigned at Date Recorded Not on file documented as of this encounter Progress Notes Center, Message - 02/16/2005 4:13 PM CDT Phone Note filed by RhinoCyte at 01/19/111818 Author: [employer] Service: (none) Author Type: (none) Filed: 01/19/111818 Note Time: 02/16/051612 Status: Signed Uniforms Sales Representative: [employer] Alfredo BENAVIDES Pole Cutter:Phoenix Palmer. Name and Loc: mailorder Pharm Seq. #:[id number] Pharm. Phone #:[phone] Medication:Astelin refill. #1 unit. Prn refills if possible please. Last fill date 11/29/04 Comment: Created on 16Feb2005 4:13pm by BLANCA TOVAR On [id number] 4:47pm DIO OCONNOR wrote: refill denied, pt needs to be seen for a reval LANGUAGE TRANSLATOR documented in this encounter Plan of Treatment Not on filedocumented as of this encounter Visit Diagnoses Not on filedocumented in this encounter Care Teams Manager Dialysis Relationship Specialty Start Date End Date Titus Medina MD PCP - General 09/16/1996 03/17/15 documented as of this encounter
--- OUTSIDE RECORDS SUMMARY | 2022-07-30 20:30 | XMS_ITS | Encounter Summary ---
:1945 Author Organization [facility] Address [address] [place] [address] Care Team Providers Name Role Phone Titus Medina MD Primary Care Provider Encounter Details Date Type Department Care Team Description 06/16/2005 Office Visit [facility] 38[address] Urgent Jamir Hernandez MD Care [address] [place] [address] [place], [place] [address] [phone] Social History Tobacco Use Types Packs/Day Years [...] 01/23/11 0707 Note Time: 06/16/052014 Status: Signed Senior Grants Officer: Jamir Ascencio MD (Physician) NAME: YIMI GARCIA MR: [id number] ACCT: [id number] VISIT: [id number] DICTATING CLINICIAN: JAMIR ASCENCIO MD JOB: [id number] CLINIC PROGRESS NOTE DATE OF VISIT: 06/16/2005 SUBJECTIVE: She is a 59-year-old female sustaining a bug bite on her anterior neck, seen in [facility] in [place] last night. Was given hydroxyzine and ceftriaxone [...] She will return on a per-needed basis. OS:[id number] C: 06/17/05 10:36 DOCUMENT: [id number] documented in this encounter Plan of Treatment Not on filedocumented as of this encounter Visit Diagnoses Not on filedocumented in this encounter Care Teams Export Packer Relationship Specialty Start Date End Date Titus Medina MD PCP - General 09/16/1996 03/17/15 documented as of this encounter
--- OUTSIDE RECORDS SUMMARY | 2022-07-30 20:30 | XMS_ITS | Encounter Summary ---
:1945 Author Organization [facility] Address [address] [place] [address] Care Team Providers Name Role Phone Titus Medina MD Primary Care Provider Reason for Visit Reason Comments Other Encounter Details Date Type Department Care Team Description 07/31/2005 Telephone [facility] 3800 Ear, Ramon Ariza MD Other Nose, and Throat [address] [place] [address] [place], [place] [address] [phone] Social History Tobacco Use Types Packs/Day Years Used Date Smoking Tobacco: Never Assessed Sex Assigned at Date Recorded Not on file documented as of this encounter Progress Notes Fatemeh Hannah - 07/31/2005 11:22 AM CDT Phone Note filed by Fatemeh Hannah MA at 01/19/112147 Author: Fatemeh Hannah MA Service: (none) Author Type: Human Resources Specialist Filed: 01/19/112147 Note Time: 07/31/051121 Status: Signed Telegraph Repeater Mechanic: Fatemeh Hannah MA (Human Resources Specialist) Pt.is req.Abx for sinus inf. sx.headaches,greenish drainage. phone #[phone]. [facility] [phone].[facility]. Created on 31Jul2005 11:22am by FATEMEH HANNAH Acknowledged by RAMON ARIZA on 8:09am This note was completed by an automated process on September 12, 2007. OR BUSINESS INTELLIGENCE ANALYST documented in this encounter Plan of Treatment Not on filedocumented as of this encounter Visit Diagnoses Not on filedocumented in this encounter Care Teams Executive Officer Relationship Specialty Start Date End Date Titus Medina MD PCP - General 09/16/1996 03/17/15 documented as of this encounter
--- OUTSIDE RECORDS SUMMARY | 2022-07-30 20:30 | XMS_ITS | Encounter Summary ---
:[address] [address] Address [address] [place] [address] Care Team Providers Name Role Phone Titus Medina MD Primary Care Provider Encounter Details Date Type Department Care Team Description 05/28/2005 PN Conversion Only [facility] Margot Pavon MD [address] [place], [place] [address] [address] [place], [place] [address] (Wo rk) Social History Tobacco Use Types [...] Carmen Sexually Trans Disease Probe @ ?Collected: ??[id number] ??1615 Source: ENDOCERV ?Processed: ??[id number] ??1615 Final Report ------ ?[id number] ??1344 No Chlamydia trachomatis detected by amp lified DNA assay No Neisseria gonorrhoeae detected by amp lified DNA assay [facility] Amplified DNA assay is romeo red by the FDA for non-medicolegal diagnostic testing in the adult population. It has not been cleared for use in the pediatric population. @ = Sexually Trans Disease Probe Perform ed at ??[address] [facility] ?[place] [address] Specimen (Source) Anatomical Collection Method Collection Time Re ceived Time Location / / Volume Laterality 05/28/2005 4:15 PM CDT Margot Pavon MD LAB_1 Performing Organization Address [facility] Phon e Number HP CONVERSION Pap Smear (05/28/2005 9:19 AM CDT) [facility] gist Method Time Signature PAP Smear SEE TEXT No normal HP CONVERSION Liquid Based range Comment: Patient: YIMI GARCIA ? CERVICAL CYTOLOGY REPORT Pathology # ??[id number] ?Date Obtained: ? Date Received: CYTOLOGIC IMPRESSION: Negative for intraepithelial lesion or m alignancy. ? BRODERICK TIONAL DATA LMP: ?FLAT CLOTHIER CLINICAL HIST LIQUID BASED PAP CERVICAL SPECIMEN [...] filedocumented in this encounter Care Teams Surgical Instrument Mechanic Relationship Specialty Start Date End Date Titus Medina MD PCP - General 09/16/1996 03/17/15 documented as of this encounter
--- OUTSIDE RECORDS SUMMARY | 2022-07-30 20:30 | XMS_ITS | Encounter Summary ---
:1945 Author Organization [facility] Address [address] [place] [address] Care Team Providers Name Role Phone Titus Medina MD Primary Care Provider Reason for Visit Reason Comments Other Encounter Details Date Type Department Care Team Description 06/16/2005 Telephone [facility] Jatinder Hi MD Other [address] [place] [address] [place] [address] [place], [place] [address] (Wo rk) Social History Tobacco Use Types [...] Filed: 01/19/112033 Note Time: 06/16/05853 Status: Signed Licensed Professional Counselor: Ramin Barros RN (Registered Nurse) Phone Care [...] RECOMMENDATIONS: Declined Interim/Home Management Information given per: [facility] Bites/Stings Nursing Reference Patient to call clinic for any of the following: symptoms of infection, e.g., increased redness, tenderness, red streaks, fever, inflammation occurs within 12 hours of the bite, fever or rash or other symptoms of illness occur within 1 month of tick bite, symptoms persist or worsen, any other questions or concerns. Dr. Pavon will return call at [phone]. PLAN: SCHEDULED APPOINTMENT WITHIN 12 HOURS Patient/Caller [...] to Urgent Care now per instructions by [facility] yesterday. On 16Jun2005 12:19pm JATINDER PAVON wrote: On review of literature, probably doesn't need atbs if potential tick bite was brief duration; attempted to contact pt but not at home; left message to call. Acknowledged by JATINDER PAVON on 12:19pm RVISOR POULTRY PROCESSING documented in this encounter Plan of Treatment Not on filedocumented as of this encounter Visit Diagnoses Not on filedocumented in this encounter Care Teams Will Call Order Clerk Relationship Specialty Start Date End Date Titus Medina MD PCP - General 09/16/1996 03/17/15 documented as of this encounter
--- OUTSIDE RECORDS SUMMARY | 2022-07-30 20:30 | XMS_ITS | Encounter Summary ---
:1945 Author [facility] Address [address] [place] [address] Care Team Providers Name Role Phone Titus Medina MD Primary Care Provider Reason for Visit Reason Comments Other Encounter Details Date Type Department Care Team Description [facility]2005 [facility] [address] [facility] [address] [place] [address] Social History Tobacco Use Types [...] Filed: 01/19/112032 Note Time: 06/15/051652 Status: Signed Paperboard Machine Operator: Ramin Barros RN (Registered Nurse) Patient left voice mail in regard to recent mammogram and ultra sound. Patient wanted to make sure Dr. Pavon had the reports and per the immaging reports they are in the computer. Message was left on patients voice mail. Created on 15Jun2005 4:53pm by RAMIN BARROS EPOINT MANAGER documented in this encounter Plan of Treatment Not on filedocumented as of this encounter Visit Diagnoses Not on filedocumented in this encounter Care Teams Press Clippings Cutter And Paster Relationship Specialty Start Date End Date Titus Medina MD PCP - General 09/16/1996 03/17/15 documented as of this encounter
--- OUTSIDE RECORDS SUMMARY | 2022-07-30 20:30 | XMS_ITS | Encounter Summary ---
:1945 Author Organization [facility] Address [address] [place] [address] Care Team Providers Name Role Phone Titus Medina MD Primary Care Provider Reason for Visit Reason Comments Other Encounter Details Date Type Department Care Team Description 11/20/[address] [facility], Message Other [address] [place], [place] [address] Social History Tobacco Use Types Packs/Day Years Used Date Smoking Tobacco: Never Assessed Sex Assigned at Date Recorded Not on file documented as of this encounter [facility], Message - 11/20/2004 3:06 PM CST Phone Note filed by Closet Couture at 01/19/11 8994 Author: Closet C[employer] Service: (none) Author Type: (none) Filed: 01/19/118 Note Time: 11/20/04 1506 Status: Signed Wet Inspector Optical Glass: Closet Couture Pt calling stating that she needs to have a letter retro active to Oct 19 and to the next 12 months. For her Acutpuncture/Therapuetic Message. She needs to have this for her Supp health insurance. Also gave you the voicemail for this. Questions please call [phone]. Pt knows that doctor is not in until 11/26. Created on [id number] 3:06pm by KENNEDY BRITO M On 04Dec2004 9:29am KENNEDY BRITO wrote: Pt calling again to see about the letter. On 05Dec2004 7:30am JATINDER DAVENPORT wrote: letter written Acknowledged by JATINDER DAVENPORT on 7:30am documented in this encounter Plan of Treatment Not on filedocumented as of this encounter Visit Diagnoses Not on filedocumented in this encounter Care Teams Ibm Bpm Developer Relationship Specialty Start Date End Date Titus Medina MD PCP - General 09/16/1996 03/17/15 documented as of this encounter
--- OUTSIDE RECORDS SUMMARY | 2022-07-30 20:30 | XMS_ITS | Encounter Summary ---
:1945 Author Organization [facility] Address [address] [place] [address] Care Team Providers Name Role Phone Titus Medina MD Primary Care Provider Reason for Visit Reason Comments Other Encounter Details Date Type Department Care Team Description 06/03/2005 Telephone [facility], Message Other [address] [place], [place] [address] Social History Tobacco Use Types Packs/Day Years [...] 2018 Note Time: 06/03/05 1618 Status: Signed Brim Blocker: Salma Barros RN (Registered Nurse) MESSAGE TO [...] NAME: PHARMACY PHONE #: CALL BACK PHONE #:[phone] BEST TIME TO CALL BACK: Is it [...] her left breast examined or call the [facility] to discuss ultasound of the left breast. ER PRINTER documented in this encounter Plan of Treatment Not on filedocumented as of this encounter Visit Diagnoses Not on filedocumented in this encounter Care Teams Electrical Construction Project Manager Relationship Specialty Start Date End Date Titus Medina MD PCP - General 09/16/1996 03/17/15 documented as of this encounter
--- OUTSIDE RECORDS SUMMARY | 2022-07-30 20:31 | XMS_ITS | Encounter Summary ---
:1945 Author Organization [facility] Address [address] [place] [address] Care Team Providers Name Role Phone Titus Medina MD Primary Care Provider Encounter Details Date Type Department Care Team Description 08/15/2003 PN Conversion Only CONV [id number] Ángel Turk [address] Khanna MD [facility] [address] [place], [place] [address] (Wo rk) Social History Tobacco Use [...] 1709 Note Time: 08/15/03 0001 Status: Signed Forensic Examiner: Ángel Hodgson MD (Physician) NAME: YIMI GARCIA MR: [id number] ACCT: [id number] VISIT: [id number] DICTATING CLINICIAN: ÁNGEL HODGSON MD JOB: [id number] CLINIC PROGRESS NOTE DATE OF VISIT: 08/15/2003 SUBJECTIVE: Patient seen for sclerotherapy today. The patient prepaid for injections today. OBJECTIVE: Half-strength hypertonic saline was used as a local sclerosing agent to varicosities in her right and left leg. Patient tolerated the procedure quite well. Philip wraps were applied. ASSESSMENT: PLAN: Patient will follow up in three weeks. TT: CT: [id number] C: 08/16/03 11:32 DOCUMENT: [id number] NTER MACHINE documented in this encounter Plan of Treatment Not on filedocumented as of this encounter Visit Diagnoses Not on filedocumented in this encounter Care Teams Steward/Stewardess Economy Class Relationship Specialty Start Date End Date Titus Medina MD PCP - General 09/16/1996 03/17/15 documented as of this encounter
--- OUTSIDE RECORDS SUMMARY | 2022-07-30 20:31 | XMS_ITS | Encounter Summary ---
:1945 Author Organization [facility] Address [address] [place] [address] Care Team Providers Name Role Phone Titus Medina MD Primary Care Provider Encounter Details Date Type Department Care Team Description 06/26/2004 Office Visit [place] [facility] Adi Jones, Therapy PT [address] [facility] [place], [place] [address] [place] [address] [phone] (Wo rk) Social History Tobacco Use Types Packs/Day Years Used Date Smoking Tobacco: Never Assessed Sex Assigned at Date Recorded Not on file documented as of this encounter Plan of Treatment Not on filedocumented as of this encounter Visit Diagnoses Not on filedocumented in this encounter Care Teams Content Strategy Lead Relationship Specialty Start Date End Date Titus Medina MD PCP - General 09/16/1996 03/17/15 documented as of this encounter
--- OUTSIDE RECORDS SUMMARY | 2022-07-30 20:31 | XMS_ITS | Encounter Summary ---
:1945 Author Organization [facility] Address [address] [place] [address] Care Team Providers Name Role Phone Titus Medina MD Primary Care Provider Encounter Details Date Type Department Care Team Description 07/22/2004 Office Visit [place] [facility] Adi Jones, Therapy PT [address] [facility] [place], [place] [address] [place] [address] [phone] (Wo rk) Social History Tobacco Use Types Packs/Day Years Used Date Smoking Tobacco: Never Assessed Sex Assigned at Date Recorded Not on file documented as of this encounter Plan of Treatment Not on filedocumented as of this encounter Visit Diagnoses Not on filedocumented in this encounter Care Teams Trial Court Justice Relationship Specialty Start Date End Date Titus Medina MD PCP - General 09/16/1996 03/17/15 documented as of this encounter
--- OUTSIDE RECORDS SUMMARY | 2022-07-30 20:31 | XMS_ITS | Encounter Summary ---
:1945 Author Organization [facility] Address [address] [place] [address] Care Team Providers Name Role Phone Titus Medina MD Primary Care Provider Encounter Details Date Type Department Care Team Description 03/13/2004 PN Conversion Only [place] [facility] Andres [facility] D, PT [address] [facility] [address] [place], [place] [address] [place] [address] [phone] (Wo rk) Social History Tobacco Use Types [...] 01/20/111328 Note Time: 12/10/03 0001 Status: Signed Quarry Supervisor: Clinician Phone Note (Resource) SUBJECTIVE: PATIENT COMPLAINS OF... Script * HOME PHONE:[phone] * ALLERGIES/SENSITIVITIES... NKA 11/10/01 03/17/02 CURRENT MEDICATIONS... Vivelle patch (0.05) Prometrium 200 mg qd 03/17/02 PERTINENT PAST HISTORY... Chronic Sinusitis; Varicose veins 11/10/01 03/17/02 ASSESSMENT: Script DISPOSITION: NO DISPOSITION GIVEN PATIENT IS NOT . PATIENT IS NOT NURSING. PLAN: [facility] COMMENTS... Per Dr. Pavon - Peter for vivelle patch .05. Apply twice a week. #8. Refill prn x 1 year. Prometrium 100 mg. 1 tab po every day. # 30. Refill prn x 1 year. Script called into pharm. Patches need prior auth. Call placed to [employer] ) for prior auth. It was approved. Scripts called into pharmacy. patient notified. CALL BY ENRIQUETA COVARRUBIAS LPN 12/10/2003 04:26PM [phone] ADDENDUM: Phone Note, Clinician - 12/06/2003 12:01 AM CST Phone Note filed by Clinician Phone Note at 01/20/11 3389 Author: Clinician Phone Note Service: (none) Author Type: Resource Filed: 01/20/11 1328 Note Time: 12/06/03 0001 Status: Signed Quarry Supervisor: Clinician Phone Note (Resource) TO: MARGOT PAVON FROM: ENRIQUETA COVARRUBIAS LPN [phone] * PROVIDER MESSAGE: RETURN * 12/06/03 03:13PM * CALL REQUESTED * MESSAGE: Patient would like script * HOME PHONE:[phone] * for the combipatch called into * CONTACT PHONE:[phone] * pharmacy. She would like to start * PHARMACY: [phone] * taking hormones again. * [place] ( [place]) * SUBJECTIVE: ALLERGIES/SENSITIVITIES... NKA 11/10/01 03/17/02 CURRENT MEDICATIONS... Vivelle patch (0.05) Prometrium 200 mg qd 03/17/02 PERTINENT PAST HISTORY... Chronic Sinusitis; Varicose veins 11/10/01 03/17/02 WEIGHT: PATIENT IS NOT . PATIENT IS NOT NURSING. ASSESSMENT: Script PLAN: DISPOSITION: NO DISPOSITION GIVEN CALL BY ENRIQUETA COVARRUBIAS LPN 12/06/2003 03:11PM [phone] ADDENDUM: <> 12/06/2003 04:34PM by ENRIQUETA COVARRUBIAS LPN: Per Dr. Dylon Baxter .14. Apply weekly. # 8. Refill prn x 1 year. Script called into pharmacy. Message left for patient at [employer] number. Margot Pavon MD - 11/22/2003 12:01 AM CST Progress Notes signed by Margot Pavon MD at 12/27/03 1125 Author: Margot Pavon MD Service: (none) Author Type: Physician Filed: 01/22/11 1856 Note Time: 11/22/03 0001 Status: Signed Quarry Supervisor: Margot Pavon MD (Physician) NAME: YIMI GARCIA MR: [id number] ACCT: [id number] VISIT: [id number] DICTATING CLINICIAN: MARGOT PAVON MD JOB: [id number] CLINIC PROGRESS NOTE DATE OF VISIT: 11/22/2003 [...] plantar fasciitis. Previous cholesterol results are reviewed. FAMILIA:[id number] C: 12/03/03 21:45 DOCUMENT: [id number] ONAL PSYCHIATRIC DIRECTOR Phone Note, Clinician - 10/25/2003 12:01 AM CST Phone Note filed by Clinician Phone Note at 01/20/11 3715 Author: Clinician Phone Note Service: (none) Author Type: Resource Filed: 01/20/11 1218 Note Time: 10/25/03 0001 Status: Signed Quarry Supervisor: Clinician Phone Note (Resource) TO: MARGOT PAVON FROM: ELIUD AUGUSTE [phone] * PROVIDER MESSAGE: RETURN * 10/25/03 01:07PM * CALL REQUESTED * MESSAGE: Patient called triage * HOME PHONE:[phone] * stating that she would like aPT * CONTACT PHONE:[phone] * referral. She c ontinues to have [...] GIVEN CALL BY ELIUD AUGUSTE 10/25/2003 01:05PM [phone] ADDENDUM: <> 10/31/2003 06:34PM by FABIAN ROY [...] evaluate. Message called to Yimi garcia on [employer]. machine as instructed. Phone Note, Clinician - 10/02/2003 12:01 AM CST Phone Note filed by Clinician Phone Note at 01/20/11 6312 Author: Clinician Phone Note Service: (none) Author Type: Resource Filed: 01/20/11 7724 Note Time: 10/02/03 0001 Status: Signed Quarry Supervisor: Clinician Phone Note (Resource) TO: MARGOT PVAON FROM: ELIUD AUGUSTE [phone] * PROVIDER MESSAGE: RETURN * 10/02/03 04:33PM * CALL REQUESTED * MESSAGE: Pt called triage requesting * HOME PHONE:[phone] * an anti-inflammatory that she has * CONTACT PHONE:[phone] * been on before. She states that it * Yimi at home ok to leave * is from another dr that she cannot * message per pt. * get int o see, and it is in her chart. The rx has . Pharmacy is [facility] [phone]. Can she call in as new, as [...] GIVEN CALL BY ELIUD AUGUSTE 10/02/2003 04:31PM [phone] ADDENDUM: <> 10/05/2003 01:41PM by KENNEDY BRITO: Per Dr. Pavon called [facility] [phone] with refill for Clinoril 150mg 1 po bid with food prn #60 refills 3. Edward Mcneal MD - 08/16/2003 12:01 AM CST Progress Notes signed by Edward Mcneal MD at 09/05/03 3996 Author: Edward Mcneal MD Service: (none) Author Type: Physician Filed: 01/22/11 2420 Note Time: 08/16/03 0001 Status: Signed Quarry Supervisor: Edward Mcneal MD (Physician) NAME: YIMI GARCIA MR: [id number] ACCT: [id number] VISIT: [id number] DICTATING CLINICIAN: EDWARD MCNEAL MD JOB: [id number] CLINIC PROGRESS NOTE DATE OF VISIT: 08/16/2003 [...] need a referral to podiatry. TT: CT: [id number] C: 08/16/03 22:58 DOCUMENT: [id number] ONAL PSYCHIATRIC DIRECTOR documented in this encounter Plan of Treatment Not on filedocumented as of this encounter Visit Diagnoses Not on filedocumented in this encounter Care Teams Park Aide Relationship Specialty Start Date End Date Titus Medina MD PCP - General 09/16/1996 03/17/15 documented as of this encounter
--- OUTSIDE RECORDS SUMMARY | 2022-07-30 20:31 | XMS_ITS | Encounter Summary ---
:1945 Author Organization [facility] Address [address] [place] [address] Care Team Providers Name Role Phone Titus Medina MD Primary Care Provider Encounter Details Date Type Department Care Team Description 04/29/2004 Office Visit [facility] Jatindre Hi MD [address] [place] [address] [place] [id number] [phone] Social History Tobacco Use Types Packs/Day Years Used Date Smoking Tobacco: Never Assessed Sex Assigned at Date Recorded Not on file documented as of this encounter Progress Notes Jatinder Pavon MD - 04/29/2004 12:01 AM CDT Progress Notes signed by Jatinder Pavon MD at 06/06/04 1610 Author: Jatinder Pavon MD Service: (none) Author Type: Physician Filed: 01/22/11 2339 Note Time: 04/29/04 0001 Status: Signed Application Tester: Jatinder Pavon MD (Physician) NAME: YIMI GARCIA MR: [id number] ACCT: [id number] VISIT: [id number] DICTATING CLINICIAN: JATINDER PAVON MD JOB: [id number] CLINIC PROGRESS NOTE DATE OF VISIT: 04/29/2004 SUBJECTIVE: Chief Complaint: Physical. A 58-year-old female here for routine physical. She is overall feeling fairly well. Notes that she has had intentional weight loss and blood pressure decrease from the 130s down to the 1 teens. She has a mild hemorrhoid and had some bleeding. That seems to be now resolved. She otherwise is feeling quite well. 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 ADR/ALLERGIES: NONE. CURRENT MEDICATIONS: Vivelle and Prometrium. 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 Usually lives alone; her 25-year-old son is now back with her temporarily. She is postmenopausal, nonsmoker. Doing well on hormone replacement therapy. We discussed that at some length and she is happy to bear the potential risk for the considerable benefit that she gets from that. Her complete review of systems is recorded in the chart. She has some questionable hearing loss on her left and a little bit of tinnitus. She has some occasional postnasal drip, uses prescription steroids with good relief. Has some occasional neck and back pain. She has some moles that she would like to have checked. FAMILY HISTORY: Significant for mother with osteoporosis. OBJECTIVE: VS: BP: 114/70. T: 97.7. P: 80. Ht: 67-1/4 in. Wt: 162. GENERAL: Healthy appearing female, no acute distress. Sclerae, conjunctivae, benign. TMs, EACs normal. Pharynx benign. NECK: Supple, no adenopathy, thyromegaly. LUNGS: Clear. HEART: Regular rate, S1, S2, no murmurs, thrills, gallops. BREASTS: No masses, discharge, axillary adenopathy. ABDOMEN: Nontender, no HSM, masses, guarding, rebound. PELVIC: Normal female external genitalia, perineum, urethra, vagina. Cervix appears normal. Pap smear is done. Uterus midline, normal size. Adnexa benign. RECTAL: Reveals a small, minimally inflamed hemorrhoid, healing. No evidence of bleeding at this point. EXTREMITIES: No edema. Orthopedic, neurologic grossly intact. Bone density results were normal in 2002 at which point she was perimenopausal. ASSESSMENT: Healthy 58-year-old female. PLAN: Continue current medications. Check mammogram, cholesterol fractionation, glucose. Recheck bone density in 5 years from her last one which will be in 2007. Follow up with me in a year or as needed. FAMILIA:[id number] C: 06/02/04 13:40 DOCUMENT: [id number] documented in this encounter Plan of Treatment Not on filedocumented as of this encounter Visit Diagnoses Not on filedocumented in this encounter Care Teams Teletypesetter Operator Relationship Specialty Start Date End Date Titus Medina MD PCP - General 09/16/1996 03/17/15 documented as of this encounter
--- OUTSIDE RECORDS SUMMARY | 2022-07-30 20:31 | XMS_ITS | Encounter Summary ---
:1945 Author [facility] Address [address] [place] [address] Care Team Providers Name Role Phone Titus Medina MD Primary Care Provider Encounter Details Date Type Department Care Team Description 11/10/[address] [facility] [address] Ear, Ramon Ariza MD Nose, and Throat [address] [facility] [place] [address] [place], [place] [id number] [phone] Social History Tobacco Use Types Packs/Day Years Used Date Smoking Tobacco: Never Assessed Sex Assigned at Date Recorded Not on file documented as of this encounter Progress Notes Ramon Ariza MD - 11/10/2004 12:01 AM CST Progress Notes signed by Ramon Ariza MD at 12/18/04 1536 Author: aRmon Ariza MD Service: (none) Author Type: Physician Filed: 01/23/11 0303 Note Time: 11/10/04 0001 Status: Signed Wire Drawing Machine Operator: Ramon Ariza MD (Physician) NAME: YIMI GARCIA MR: [id number] ACCT: [id number] VISIT: [id number] DICTATING CLINICIAN: RAMON ARIZA MD JOB: [id number] CLINIC PROGRESS NOTE DATE OF VISIT: 11/10/2004 [...] discussed. PLAN: She would like to proceed. SMC:[id number] C: 12/01/04 13:59 DOCUMENT: [id number] E CHANGER documented in this encounter Plan of Treatment Not on filedocumented as of this encounter Visit Diagnoses Not on filedocumented in this encounter Care Teams Bolt Machine Operator Relationship Specialty Start Date End Date Titus Medina MD PCP - General 09/16/1996 03/17/15 documented as of this encounter
--- OUTSIDE RECORDS SUMMARY | 2022-07-30 20:31 | XMS_ITS | Encounter Summary ---
:1945 Author [facility] Address [address] [place] [address] Care Team Providers Name Role Phone Titus Medina MD Primary Care Provider Encounter Details Date Type Department Care Team Description 04/13/2003 PN Conversion Only CREEKSIDE CONVERSION Margot Pavon MD [address] [place], [place] [address] [address] [place], [place] [address] (Wo rk) Social History Tobacco Use Types [...] Results Pap Smear (04/13/2003 10:11 AM CDT) [facility] Time Signature PAP Smear SEE TEXT No normal HP CONVERSION Liquid Based range Comment: Patient: YIMI GARCIA ? CERVICAL CYTOLOGY REPORT Pathology # ??[id number] ?Date Obtained: ? Date Received: LMP: ?INTERACTIVE WEB DEVELOPER CLINICAL HIST LIQUID BASED PAP CERVICAL SPECIMEN [...] on filedocumented in this encounter Care Teams Focusing Machine Operator Relationship Specialty Start Date End Date Titus Medina MD PCP - General 09/16/1996 03/17/15 documented as of this encounter
--- OUTSIDE RECORDS SUMMARY | 2022-07-30 20:31 | XMS_ITS | Encounter Summary ---
:1945 Author Organization [facility] Address [address] [place] [address] Care Team Providers Name Role Phone Titus Medina MD Primary Care Provider Encounter Details Date Type Department Care Team Description 04/03/2004 Office Visit [place] [facility] Adi Jones, Therapy PT [address] [facility] [place], [place] [address] [address] [place] [address] [phone] (Wo rk) Social History Tobacco Use Types Packs/Day Years Used Date Smoking Tobacco: Never Assessed Sex Assigned at Date Recorded Not on file documented as of this encounter Plan of Treatment Not on filedocumented as of this encounter Visit Diagnoses Not on filedocumented in this encounter Care Teams Screw Machine Tender Relationship Specialty Start Date End Date Titus Medina MD PCP - General 09/16/1996 03/17/15 documented as of this encounter
--- OUTSIDE RECORDS SUMMARY | 2022-07-30 20:31 | XMS_ITS | Encounter Summary ---
:1945 Author Organization [facility] Address [address] [place] [address] Care Team Providers Name Role Phone Titus Medina MD Primary Care Provider Encounter Details Date Type Department Care Team Description 04/29/2004 PN Conversion Only CREEKSIDE CONVERSION Margot Pavon MD [address] [place], [place] [address] [address] [place], [place] [address] (Wo rk) Social History Tobacco Use Types [...] Direct LDL(If Needed) (04/29/2004 11:31 AM CDT) [facility] gist Method Time Signature Cholesterol/HDL 2.9 [...] Margot Pavon MD LAB_1 Performing Organization Address City/[facility]/ZIP Code Phon e Number HP CONVERSION Glucose (04/29/2004 11:31 AM CDT) P athologist Signature Lab Glucose 91 60 - 100 HP CONVERSION mg/dL Specimen (Source) Anatomical Collection Method Collection Time Re ceived Time Location / / Volume Laterality 04/29/2004 11:31 AM CDT Margot Pavon MD LAB_1 Performing Organization Address City/[facility] Code Phon e Number HP CONVERSION Pap Smear (04/29/2004 8:56 AM CDT) Patholo gist Method Time Signature PAP Smear SEE TEXT No normal HP CONVERSION Liquid Based range Comment: Patient: YIMI GARCIA ? CERVICAL CYTOLOGY REPORT Pathology # ??[id number] ?Date Obtained: ? Date Received: CYTOLOGIC IMPRESSION: Negative for intraepithelial lesion or m alignancy. ? BRODERICK TIONAL DATA LMP: ?MEDICAL BILLER CODER CLINICAL HIST LIQUID BASED PAP CERVICAL SPECIMEN [...] filedocumented in this encounter Care Teams Assistant County Attorney Relationship Specialty Start Date End Date Titus Medina MD PCP - General 09/16/1996 03/17/15 documented as of this encounter
--- OUTSIDE RECORDS SUMMARY | 2022-07-30 20:31 | XMS_ITS | Encounter Summary ---
:1945 Author Organization [facility] Address [address] [place] [address] Care Team Providers Name Role Phone Titus Medina MD Primary Care Provider Encounter Details Date Type Department Care Team Description 04/10/2004 Office Visit [facility] Adi Jones, Therapy PT [address] [facility] [address] [place], [place] [address] [place] [address] [phone] (Wo rk) Social History Tobacco Use Types Packs/Day Years Used Date Smoking Tobacco: Never Assessed Sex Assigned at Date Recorded Not on file documented as of this encounter Plan of Treatment Not on filedocumented as of this encounter Visit Diagnoses Not on filedocumented in this encounter Care Teams Hair Blender Relationship Specialty Start Date End Date Titus Medina MD PCP - General 09/16/1996 03/17/15 documented as of this encounter
--- OUTSIDE RECORDS SUMMARY | 2022-07-30 20:31 | XMS_ITS | Encounter Summary ---
:1945 Author Organization [facility] Address [address] [address] Care Team Providers Name Role Phone Titus Medina MD Primary Care Provider Encounter Details Date Type Department Care Team Description 06/18/2003 Hospital Encounter [facility] CONVERSION Phyllis Simmons MD [address] [place], [place] [address] Social History Tobacco Use Types Packs/Day Years Used Date Smoking Tobacco: Never Assessed Sex Assigned at Date Recorded Not on file documented as of this encounter Plan of Treatment Not on filedocumented as of this encounter Procedures Procedure Name Priority Date/Time Associated Diagnosis Comme nts MR PELVIS WO IV Routine 06/18/2003 7:33 PM Result s for this CONT CDT procedure are i n the results section. documented in this encounter Results MR Pelvis WO IV Cont (06/18/2003 7:33 PM CDT) Anatomical Region Laterality Modality Pelvis, Hip, Lower Extremity Other Specimen (Source) Anatomical Location Collection Method / Collectio n Time Received Time / Laterality Volume Impressions 06/18/2003 7:33 PM CDT : ? 1. ?? No findings ?to sugg est urethral mass or diverticulum. ? 2. ?? 4.2 cm ?exophytic fi broid off the right aspect of the uterus. [id number]/pb Dictating RADHA NÚÑEZ RADIOLOGIST Narrative 06/18/2003 7:33 PM CDT CLINICAL HISTORY: ??Stress incontinence. COMPARISON: ??None. TECHNIQUE: ??Axial T1 and fat sat T2, sa gittal and coronal fat sat T2 sequences obtained. FINDINGS: ??The region of the urethra is unremarkable without evidence of mass or diverticulum. ??Reported devin t or mesh material in this region is not well appreciated. ??Bladde r is grossly unremarkable. Extending off the right aspect of the re troverted uterus is an approximately 2 cm heterogeneous well-ci rcumscribed mass lesion. ??It contains a 1 cm focus of low T2 signal i ntensity. ??Findings would be most consistent with an exophytic fibroi d. Ovaries are not discretely well visualiz ed with no evidence of adnexal masses otherwise noted beyond th e aforementioned fibroid. Stool noted within the colon. ??No free fluid identified. ??Multiple small foci of increased T2 signal in the region of the cervix are most suggestive of nabothian cysts. Procedure Note Radha Franco MD - 12/05/2016Formatt ing of this note might be different from the original. CLINICAL HISTORY: Stress incontinence. COMPARISON: None. TECHNIQUE: Axial T1 and fat sat T2, sagi ttal and coronal fat sat T2 sequences obtained. FINDINGS: The region of the urethra is u nremarkable without evidence of mass or diverticulum. Reported graft or mesh material in this region is not well appreciated. Bladder is grossly unremarkable. Extending off the right aspect of the re troverted uterus is an approximately 2 cm heterogeneous well-ci rcumscribed mass lesion. It contains a 1 cm focus of low T2 signal i ntensity. Findings would be most consistent with an exophytic fibroi d. Ovaries are not discretely well visualiz ed with no evidence of adnexal masses otherwise noted beyond th e aforementioned fibroid. Stool noted within the colon. No free fl uid identified. Multiple small foci of increased T2 signal in the region of the cervix are most suggestive of nabothian cysts. IMPRESSION : 1. No findings to suggest urethral mass or diverticulum. 2. 4.2 cm exophytic fibroid off the rig ht aspect of the uterus. [id number]/pb Dictating RADHA NÚÑEZ RADIOLOGIST Dwayne Simmons MD RAD MRI documented in this encounter Visit Diagnoses Not on filedocumented in this encounter Care Teams Human Services Case Manager Relationship Specialty Start Date End Date Titus Medina MD PCP - General 09/16/1996 03/17/15 documented as of this encounter
--- OUTSIDE RECORDS SUMMARY | 2022-07-30 20:31 | XMS_ITS | Encounter Summary ---
:1945 Author Organization [facility] Address [address] [place] [address] Care Team Providers Name Role Phone Titus Medina MD Primary Care Provider Encounter Details Date Type Department Care Team Description 03/27/2004 Office Visit [place] [facility], [facility] PT [address] [facility] [address] [place], [place] [address] [place] [address] [phone] (Wo rk) Social History Tobacco Use Types Packs/Day Years Used Date Smoking Tobacco: Never Assessed Sex Assigned at Date Recorded Not on file documented as of this encounter Plan of Treatment Not on filedocumented as of this encounter Visit Diagnoses Not on filedocumented in this encounter Care Teams Ring Sewer Relationship Specialty Start Date End Date Titus Medina MD PCP - General 09/16/1996 03/17/15 documented as of this encounter
--- OUTSIDE RECORDS SUMMARY | 2022-07-30 20:31 | XMS_ITS | Encounter Summary ---
:1945 Author Organization [facility] Address [address] [place] [address] Care Team Providers Name Role Phone Titus Medina MD Primary Care Provider Encounter Details Date Type Department Care Team Description 05/08/2004 Office Visit [place] [facility] Adi [facility], Therapy PT [address] [facility] [address] [place], [place] [address] [place] [address] [phone] (Wo rk) Social History Tobacco Use Types Packs/Day Years Used Date Smoking Tobacco: Never Assessed Sex Assigned at Date Recorded Not on file documented as of this encounter Plan of Treatment Not on filedocumented as of this encounter Visit Diagnoses Not on filedocumented in this encounter Care Teams Carton Wrapper Relationship Specialty Start Date End Date Titus Medina MD PCP - General 09/16/1996 03/17/15 documented as of this encounter
--- OUTSIDE RECORDS SUMMARY | 2022-07-30 20:31 | XMS_ITS | Encounter Summary ---
:1945 Author Organization [facility] Address [address] [place] [address] Care Team Providers Name Role Phone Titus Medina MD Primary Care Provider Encounter Details Date Type Department Care Team Description 07/17/2004 Office Visit [place] [facility] Adi Jones, Therapy PT [address] [facility] [address] [place], [place] [address] [place] [address] [phone] (Wo rk) Social History Tobacco Use Types Packs/Day Years Used Date Smoking Tobacco: Never Assessed Sex Assigned at Date Recorded Not on file documented as of this encounter Plan of Treatment Not on filedocumented as of this encounter Visit Diagnoses Not on filedocumented in this encounter Care Teams Editing Clerk Relationship Specialty Start Date End Date Titus Medina MD PCP - General 09/16/1996 03/17/15 documented as of this encounter
--- OUTSIDE RECORDS SUMMARY | 2022-07-30 20:31 | XMS_ITS | Encounter Summary ---
:1945 Author Organization [facility] Address [address], [place] [address] Care Team Providers Name Role Phone Titus Medina MD Primary Care Provider Encounter Details Date Type Department Care Team Description 09/17/[address] [facility] Ramon Rucker MD [address] [employer] [address] [place] [id number] [phone] Social History Tobacco Use Types Packs/Day Years Used Date Smoking Tobacco: Never Assessed Sex Assigned at Date Recorded Not on file documented as of this encounter Progress Notes Margot Pavon MD - 12/04/2004 12:01 AM CST Progress Notes signed by Margot Pavon MD at 12/04/04 0882 Author: Margot Pavon MD Service: (none) Author Type: Physician Filed: 01/23/11 0331 Note Time: 12/04/042014 Status: Signed Field Map Editor: Margot Pavon MD (Physician) [facility] [address] [place] [address] December 04, 2004 RE: Ramona Sheikh 1945 Ms. Sheikh has chronic pain and has medical reason to have acupuncture and therapeutic massage. She should be allowed to use funds from her [facility] &/or eligible other funds to pay for these services. Please consider this letter retroactive to 09/06 and applicable throughout 2004. Thank you. Margot Pavon MD Family Medicine AND INSURANCE MANAGER documented in this encounter Plan of Treatment Not on filedocumented as of this encounter Visit Diagnoses Not on filedocumented in this encounter Care Teams Analytics Specialist Relationship Specialty Start Date End Date Titus Medina MD PCP - General 09/16/1996 03/17/15 documented as of this encounter
--- OUTSIDE RECORDS SUMMARY | 2022-07-30 20:31 | XMS_ITS | Encounter Summary ---
:1945 Author Organization [facility] Address [address] [place] [address] Care Team Providers Name Role Phone Titus Medina MD Primary Care Provider Encounter Details Date Type Department Care Team Description 08/05/2004 Office Visit [place] [facility] Ad[facility], [facility] PT [facility] [address] [place], [place] [address] [place] [address] [phone] (Wo rk) Social History Tobacco Use Types Packs/Day Years Used Date Smoking Tobacco: Never Assessed Sex Assigned at Date Recorded Not on file documented as of this encounter Plan of Treatment Not on filedocumented as of this encounter Visit Diagnoses Not on filedocumented in this encounter Care Teams Teacher Theater Arts Relationship Specialty Start Date End Date Titus Medina MD PCP - General 09/16/1996 03/17/15 documented as of this encounter
--- OUTSIDE RECORDS SUMMARY | 2022-07-30 20:31 | XMS_ITS | Encounter Summary ---
:1945 Author Organization [facility] Address [address] [place] [address] Care Team Providers Name Role Phone Titus Medina MD Primary Care Provider Encounter Details Date Type Department Care Team Description 07/31/2004 Office Visit [place] [facility] Ad[facility], Therapy PT [address] [facility] [address] [place], [place] [address] [place] [address] [phone] (Wo rk) Social History Tobacco Use Types Packs/Day Years Used Date Smoking Tobacco: Never Assessed Sex Assigned at Date Recorded Not on file documented as of this encounter Plan of Treatment Not on filedocumented as of this encounter Visit Diagnoses Not on filedocumented in this encounter Care Teams Ticket Attendant Relationship Specialty Start Date End Date Titus Medina MD PCP - General 09/16/1996 03/17/15 documented as of this encounter
--- OUTSIDE RECORDS SUMMARY | 2022-07-30 20:31 | XMS_ITS | Encounter Summary ---
:1945 Author Organization [facility] Address [address] [place] [address] Care Team Providers Name Role Phone Titus Medina MD Primary Care Provider Encounter Details Date Type Department Care Team Description 08/14/2004 Office Visit [place] [facility] Adi Jones, Therapy PT [address] [facility] [address] [place], [place] [address] [place] [address] [phone] (Wo rk) Social History Tobacco Use Types Packs/Day Years Used Date Smoking Tobacco: Never Assessed Sex Assigned at Date Recorded Not on file documented as of this encounter Plan of Treatment Not on filedocumented as of this encounter Visit Diagnoses Not on filedocumented in this encounter Care Teams Senior Education Specialist Relationship Specialty Start Date End Date Titus Medina MD PCP - General 09/16/1996 03/17/15 documented as of this encounter
--- OUTSIDE RECORDS SUMMARY | 2022-07-30 20:31 | XMS_ITS | Encounter Summary ---
:1945 Author Organization [facility] Address [address] [place] [address] Care Team Providers Name Role Phone Titus Medina MD Primary Care Provider Encounter Details Date Type Department Care Team Description 03/01/2003 PN Conversion Only [employer] SH[employer]OR[employer] [address] CON[address] Elizabeth Trujillo MD [address] [place] [address] [place] [address] (Wo rk) Social History Tobacco [...] Strep Follow up Culture @ ? Collected: ??[id number] ??[id number] Source: Throat ?Processed: ??[id number] ??1233 Final Report ------ ?[id number] ??[id number] No beta hemolytic Strep group A isolated . @ = Rapid F/U Cult Performed at ??[address] [place] ?[address] Specimen (Source) Anatomical Collection Method Collection Time Re ceived Time Location / / Volume Laterality 03/01/2003 12:19 PM CDT Elizabeth Trujillo MD LAB_1 Performing Organization Address City/[facility] Code Phon e Number HP CONVERSION documented in this encounter Visit Diagnoses Not on filedocumented in this encounter Care Teams Data Analytics Specialist Relationship Specialty Start Date End Date Titus Medina MD PCP - General 09/16/1996 03/17/15 documented as of this encounter
--- OUTSIDE RECORDS SUMMARY | 2022-07-30 20:31 | XMS_ITS | Encounter Summary ---
:1945 Author Organization [facility] Address [address] [place] [address] Care Team Providers Name Role Phone Titus Medina MD Primary Care Provider Encounter Details Date Type Department Care Team Description 10/15/2004 Office Visit [facility] [address] Dwayne Herring MD [address] [place] [address] 57[address] [facility] [phone] [place], [place] [address] Social History Tobacco Use Types Packs/Day Years [...] 0232 Note Time: 10/15/04 0001 Status: Signed Rn Staff: Dwayne Simmons MD (Physician) NAME: YIMI GARCIA MR: [id number] ACCT: [id number] VISIT: [id number] DICTATING CLINICIAN: DWAYNE SIMMONS MD JOB: [id number] CLINIC PROGRESS NOTE DATE OF VISIT: 10/15/2004 [...] a very severe problem. OBJECTIVE: ASSESSMENT: PLAN: [id number] C: 10/16/04 04:41 DOCUMENT: [id number] RETTE MAKER documented in this encounter Plan of Treatment Not on filedocumented as of this encounter Visit Diagnoses Not on filedocumented in this encounter Care Teams [facility] Relationship Specialty Start Date End Date Titus Medina MD PCP - General 09/16/1996 03/17/15 documented as of this encounter
--- OUTSIDE RECORDS SUMMARY | 2022-07-30 20:31 | XMS_ITS | Encounter Summary ---
:1945 Author Organization [facility] Address [address] [place] [address] Care Team Providers Name Role Phone Titus Medina MD Primary Care Provider Encounter Details Date Type Department Care Team Description 04/24/2004 Office Visit [place] [facility] Adi Jones, Therapy PT [facility] [address] [place], [place] [address] [address] [place] [address] [phone] (Wo rk) Social History Tobacco Use Types Packs/Day Years Used Date Smoking Tobacco: Never Assessed Sex Assigned at Date Recorded Not on file documented as of this encounter Plan of Treatment Not on filedocumented as of this encounter Visit Diagnoses Not on filedocumented in this encounter Care Teams Registered Occupational Therapist Relationship Specialty Start Date End Date Titus Medina MD PCP - General 09/16/1996 03/17/15 documented as of this encounter
--- OUTSIDE RECORDS SUMMARY | 2022-07-30 20:31 | XMS_ITS | Encounter Summary ---
:1945 Author Organization [facility] Address [address] [place] [address] Care Team Providers Name Role Phone Titus Medina MD Primary Care Provider Encounter Details Date Type Department Care Team Description 04/16/2004 [facility] Visit [facility] 39[address] Ramon Malloy MD [facility] 39[address] [facility] 39[address] [facility] [address] [place] [phone] (Wo rk) Social History Tobacco Use Types [...] 2326 Note Time: 04/16/04 0001 Status: Signed Legal Examiner: Son Malloy MD (Physician) NAME: YIMI GARCIA MR: [id number] ACCT: [id number] VISIT: [id number] DICTATING CLINICIAN: SON MALLOY MD JOB: [id number] CLINIC PROGRESS NOTE DATE OF VISIT: 04/16/2004 SUBJECTIVE: Yimi is seen for the first time in 2-1/2 years. I have followed her previously for plantar fasciitis and trochanteric bursitis. She is in today with complaints of left shoulder pain. She has been referred to physical therapy and saw Marlon Jones at the [place] office. Marlon was concerned about the amount [...] has normal biceps and triceps strength. Good clinical documentation developer strength distally. Normal sensation distally. ASSESSMENT: 1. [...] follow up with me in 2-3 months. PRD:[id number] C: 04/16/04 20:10 DOCUMENT: [id number] documented in this encounter Plan of Treatment Not on filedocumented as of this encounter Visit Diagnoses Not on filedocumented in this encounter Care Teams Advertising Inserter Relationship Specialty Start Date End Date Titus Medina MD PCP - General 09/16/1996 03/17/15 documented as of this encounter
--- OUTSIDE RECORDS SUMMARY | 2022-07-30 20:31 | XMS_ITS | Encounter Summary ---
:1945 Author Organization [facility] Address [address] [place] [address] Care Team Providers Name Role Phone Titus Medina MD Primary Care Provider Encounter Details Date Type Department Care Team Description 12/31/2002 PN Conversion Only KEY ACCOUNT EXECUTIVE [address] LEONARDA Mercer [place] [address] [address] [place] [address] (Wo rk) Social History Tobacco Use Types Packs/Day Years Used Date Smoking Tobacco: Never Assessed Sex Assigned at Date Recorded Not on file documented as of this encounter Plan of Treatment Not on filedocumented as of this encounter Procedures Procedure Name Priority Date/Time Associated Comments Diagnosis GIARDIA ANTIGEN Routine 12/31/2002 9:50 AM Result s for this SCREEN INTERNAL COMBUSTION ENGINE SUBASSEMBLER procedure are i n the results section. CLOSTRIDIUM DIFFICILE Routine 12/31/2002 9:50 AM Results for this TOXIN INTERNAL COMBUSTION ENGINE SUBASSEMBLER procedure are i n the results section. STOOL CULTURE Routine 12/31/2002 9:50 AM Results for this INTERNAL COMBUSTION ENGINE SUBASSEMBLER procedure are i n the results section. documented in this encounter Results Clostridium Difficile Toxin (12/31/2002 9:50 AM INTERNAL COMBUSTION ENGINE SUBASSEMBLER) [facility] Method Time Signature Clostridium SEE TEXT HP CONVERSION difficile Toxin Comment: Patient: YIMI GARCIA E Source: Stool ? [id number] ?Processed: ??[id number] Final Report ------ ?[id number] ?1142 Clostridium difficile toxin not detected @ = C DIFF TOXIN Performed at ??[address] [place], [place] ?[address] Specimen (Source) Anatomical Collection Method Collection Time Re ceived Time Location / / Volume Laterality 12/31/2002 9:50 AM INTERNAL COMBUSTION ENGINE SUBASSEMBLER Danish Woods MD LAB_1 Performing Organization Address City/State/ZIP Code Phon e Number HP CONVERSION Giardia Antigen Screen (12/31/2002 9:50 AM INTERNAL COMBUSTION ENGINE SUBASSEMBLER) P athologist Signature Giardia Ab SEE TEXT HP CONVERSION Comment: Patient: YIMI GARCIA Giardia Screen @ ?Collected: ??[id number] ??[id number] Source: Stool ? Processed: ??[id number] ??0950 Final Report ------ ?[id number] ??1348 Negative for Giardia antigen @ = Giardia Screen Performed at ??[address] [facility] ?[address] Specimen (Source) Anatomical Collection Method Collection Time Re ceived Time Location / / Volume Laterality 12/31/2002 9:50 AM INTERNAL COMBUSTION ENGINE SUBASSEMBLER Danish Woods MD LAB_1 Performing Organization Address City/State/ZIP Code Phon e Number HP CONVERSION Stool Culture (12/31/2002 9:50 AM INTERNAL COMBUSTION ENGINE SUBASSEMBLER) Analysis Performed At [facility] Time Signature Stool Culture SEE TEXT HP CONVERSION Comment: Patient: YIMI GARCIA Culture, Stool @ ?Collected: ??[id number] ??0950 Source: Stool ? Processed: ??[id number] ??1110 Final Report ------ ?[id number] ??1025 No Salmonella, Shigella, Campylobacter o r E coli 0157 isolated NOTE: Aeromonas, Plesiomonas and Vibrio may be missed. If patient has a history of fore ign travel, eating raw shellfish or other contact wi th contaminated water, another culture should be submitt ed with these organisms specifically requested. @ = STOOL CULTURE Performed at ??[address] [place] ?[address] Specimen (Source) Anatomical Collection Method Collection Time Re ceived Time Location / / Volume Laterality 12/31/2002 9:50 AM INTERNAL COMBUSTION ENGINE SUBASSEMBLER Danish Woods MD LAB_1 Performing Organization Address City/State/ZIP Code Phon e Number HP CONVERSION documented in this encounter Visit Diagnoses Not on filedocumented in this encounter Care Teams Territory Service Representative Relationship Specialty Start Date End Date Titus Medina MD PCP - General 09/16/1996 03/17/15 documented as of this encounter
--- OUTSIDE RECORDS SUMMARY | 2022-07-30 20:31 | XMS_ITS | Encounter Summary ---
:1945 Author Organization [facility] Address [address] [place] [address] Care Team Providers Name Role Phone Titus Medina MD Primary Care Provider Encounter Details Date Type Department Care Team Description 07/09/2004 Office Visit [place] [address] [address] [place] [address] Social History Tobacco Use Types Packs/Day Years Used Date Smoking Tobacco: Never Assessed Sex Assigned at Date Recorded Not on file documented as of this encounter Progress Notes Stephy Castro - 07/09/2004 12:01 AM CDT Progress Notes signed by ALYCIA Alvarado at 07/14/04 0933 Author: ALYCIA Alvarado Service: (none) Author Type: Glass Grinder Filed: 01/23/11 0049 Note Time: 07/09/04 0001 Status: Signed Tunnel Kiln Repairer: ALYCIA Alvarado (Glass Grinder) NAME: YIMI GARCIA MR: [id number] ACCT: [id number] VISIT: [id number] DICTATING CLINICIAN: ALYCIA ALVARADO JOB: [id number] CLINIC PROGRESS NOTE DATE OF VISIT: 07/09/2004 [...] IMPRESSION: Stable low-frequency sensorineural hearing loss bilaterally. SAH:[id number] C: 07/10/04 11:10 DOCUMENT: [id number] documented in this encounter Plan of Treatment Not on filedocumented as of this encounter Visit Diagnoses Not on filedocumented in this encounter Care Teams Manager Animation Relationship Specialty Start Date End Date Titus Medina MD PCP - General 09/16/1996 03/17/15 documented as of this encounter
--- OUTSIDE RECORDS SUMMARY | 2022-07-30 20:31 | XMS_ITS | Encounter Summary ---
:1945 Author Organization [facility] Address [address] [place] [address] Care Team Providers Name Role Phone Titus Medina MD Primary Care Provider Encounter Details Date Type Department Care Team Description 07/02/2003 PN Conversion Only [facility] [address] MD Urology OFF SITE [address] [place] [address] [phone] Social History Tobacco Use Types Packs/Day Years Used Date Smoking Tobacco: Never Assessed Sex Assigned at Date Recorded Not on file documented as of this encounter Progress Notes Phone Note, Clinician - 07/13/2003 12:01 AM CDT Phone Note filed by Clinician Phone Note at 01/20/111217 Author: Clinician Phone Note Service: (none) Author Type: Resource Filed: 01/20/111217 Note Time: 07/13/03 0001 Status: Signed Communications Representative: Clinician Phone Note (Resource) TO: MARGOT DAVENPORT FROM: FABIAN ROY [id number] 07/13/03 * PROVIDER MESSAGE: RETURN * 05:17PM * CALL REQUESTED * MESSAGE: CALLED JUL 13, * HOME PHONE:[phone] * ASKING THAT MARGOT DAVENPORT MD WRITE * CONTACT PHONE:[phone] * HER A LETTER OF REFERRAL TO [facility], [address], [facility], [address] attn: Elisepapito Judd. She is having on-going [...] GIVEN CALL BY FABIAN ROY 07/13/2003 05:06PM [id number] ADDENDUM: Dwayne Saini MD - 07/02/2003 12:01 AM CDT Progress Notes signed by Dwayne Park MD at 08/04/03 1321 Author: Dwayne Park MD Service: (none) Author Type: Physician Filed: 01/22/11 1622 Note Time: 07/02/03 0001 Status: Signed Communications Representative: Dwayne Park MD (Physician) NAME: YIMI GARCIA MR: [id number] ACCT: [id number] VISIT: [id number] DICTATING CLINICIAN: DWAYNE PARK MD JOB: [id number] CLINIC PROGRESS NOTE DATE OF VISIT: 07/02/2003 [...] procedure is about 8%, but they have terminal manager results of 7 and 8 years show that it is usually durable. There are unforeseen events such as erosion that we are very concerned about, but just have not seen. She asked questions regarding her job and when it would do. I suggested she was to take at least ten days off. 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 We have arranged for a previous patient to talk to her about the TVT tape. TT: CT: ETU:[id number] C: 07/03/03 16:55 DOCUMENT: [id number] Ramon Abbott MD - 05/28/2003 12:01 AM CDT Progress Notes signed by Ramon Ariza MD at 06/28/03 1534 Author: Ramon Ariza MD Service: (none) Author Type: Physician Filed: 01/22/11 1549 Note Time: 05/28/03 0001 Status: Signed Communications Representative: Ramon Ariza MD (Physician) NAME: YIMI GARCIA MR: [id number] ACCT: [id number] VISIT: [id number] DICTATING CLINICIAN: RAMON ARIZA MD JOB: [id number] CLINIC PROGRESS NOTE DATE OF VISIT: 05/28/2003 [...] should continue with her Astelin. TT: CT: [facility]:[id number] C: 06/05/03 13:18 DOCUMENT: [id number] Dwayne Park MD - 05/02/2003 12:01 AM CDT Progress Notes signed by Dwayne Park MD at 05/29/03 1223 Author: Dwayne Park MD Service: (none) Author Type: Physician Filed: 01/22/11 1525 Note Time: 05/02/03 0001 Status: Signed Communications Representative: Dwayne Park MD (Physician) NAME: YIMI GARCIA MR: [id number] ACCT: [id number] VISIT: [id number] DICTATING CLINICIAN: DWAYNE PARK MD JOB: [id number] CLINIC PROGRESS NOTE DATE OF VISIT: 05/02/2003 [...] urinary incontinence. Failed Birch procedure. TT: CT: ETU:[id number] C: 05/03/03 10:28 DOCUMENT: [id number] Pb Finch MD - 04/17/2003 12:01 AM CDT Progress Notes signed by Pb Finch MD at 05/27/03 1425 Author: Pb Finch MD Service: (none) Author Type: Physician Filed: 01/22/11 1511 Note Time: 04/17/03 0001 Status: Signed Communications Representative: Pb Finch MD (Physician) NAME: YIMI GARCIA MR: [id number] ACCT: [id number] VISIT: [id number] DICTATING CLINICIAN: PB FINCH MD JOB: [id number] CLINIC PROGRESS NOTE DATE OF VISIT: 04/17/2003 SUBJECTIVE: Yimi is a 56-year-old female who was originally skin tested about three or four months ago with negative tests at that time. She is interested in having some additional allergy testing done, since she spends quite a bit of time in the [place] area, and was worried about some of the [facility] allergens, and also wanted to have some [...] tests today for foods and for the [facility] allergens were all completely negative. ASSESSMENT: Vasomotor [...] will have her return p.r.n. TT: CT: RAW:[id number] C: 04/18/03 12:25 DOCUMENT: [id number] Margot Davenport MD - 04/13/2003 12:01 AM CDT Progress Notes signed by Margot Davenport MD at 06/24/03 1436 Author: Margto Davenport MD Service: (none) Author Type: Physician Filed: 01/22/11 1508 Note Time: 04/13/03 0001 Status: Signed Communications Representative: Margot Davenport MD (Physician) NAME: YIMI GARCIA MR: [id number] ACCT: [id number] VISIT: [id number] DICTATING CLINICIAN: MARGOT DAVENPORT MD JOB: [id number] CLINIC PROGRESS NOTE DATE OF VISIT: 04/13/2003 [...] palpable. Rectal is negative. ASSESSMENT: 1. 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 2. Health maintenance screening up-to-date. 3. Ear pain with flying. PLAN: Auralgan ear drops p.r.n. She has mammogram scheduled. She is not due for colon screening yet. Cholesterol was normal last year. Paps have always been normal. She will follow up p.r.n. TT: CT: [facility]:[id number] C: 04/16/03 12:01 DOCUMENT: [id number] Taiwo Painter MBBS - 04/05/2003 12:01 AM CDT Progress Notes signed by Taiwo Painter MD at 04/27/03 0832 Author: Taiwo Painter MD Service: (none) Author Type: Physician Filed: 01/22/11 1501 Note Time: 04/05/03 0001 Status: Signed Communications Representative: Taiwo Painter MD (Physician) NAME: YIMI GARCIA MR: [id number] ACCT: [id number] VISIT: [id number] DICTATING CLINICIAN: TAIWO PAINTER MD JOB: [id number] CLINIC PROGRESS NOTE DATE OF VISIT: 04/05/2003 [...] days. 2. May use Tinactin or some ntox-wtf-wwdrvuy athlete's foot preparation for the feet. I advised her to keep the feet clean and dry. Follow up with PCP p.r.n. Return to clinic p.r.n. TT: CT: GKP:[id number] C: 04/06/03 07:34 DOCUMENT: [id number] Ramon Ariza MD - 03/12/2003 12:01 AM CDT Progress Notes signed by Ramon Ariza MD at 04/03/03 1259 Author: Ramon Ariza MD Service: (none) Author Type: Physician Filed: 01/22/11 1438 Note Time: 03/12/03 0001 Status: Signed Communications Representative: Ramon Ariza MD (Physician) NAME: YIMI AGRCIA MR: [id number] ACCT: [id number] VISIT: [id number] DICTATING CLINICIAN: RAMON ARIZA MD JOB: [id number] CLINIC PROGRESS NOTE DATE OF VISIT: 03/12/2003 [...] Medrol Dosepak for her upcoming trip to [place] because she does have problems with air travel. We will see her back on a p.r.n. basis. TT: CT: [facility]:[id number] C: 03/30/03 11:25 DOCUMENT: [id number] Margot Davenport MD - 03/07/2003 12:01 AM CDT Progress Notes signed by Margot Davenport MD at 03/27/03 1454 Author: Margot Davenport MD Service: (none) Author Type: Physician Filed: 01/22/11 1434 Note Time: 03/07/03 0001 Status: Signed Communications Representative: Margot Davenport MD (Physician) NAME: YIMI GARCIA MR: [id number] ACCT: [id number] VISIT: [id number] DICTATING CLINICIAN: MARGOT DAVENPORT MD JOB: [id number] CLINIC PROGRESS NOTE DATE OF VISIT: 03/07/2003 SUBJECTIVE: Chief Complaint: Follow up blood pressure check, check leg, foot and ear. Vnrdj-yws-xqhp-old female here with above concerns: 1. She [...] She will follow up p.r.n. TT: CT: FAMILIA:[id number] C: 03/22/03 12:07 DOCUMENT: [id number] Phone Note, Clinician - 03/01/2003 12:01 AM CDT Phone Note filed by Clinician Phone Note at 01/20/11 112 Author: Clinician Phone Note Service: (none) Author Type: Resource Filed: 01/20/11 112 Note Time: 03/01/03 0001 Status: Signed Communications Representative: Clinician Phone Note (Resource) SUBJECTIVE: PATIENT COMPLAINS OF... Sore throat * HOME PHONE:[phone] * with cough and cold. very sore [...] CALL BY SHAMIKA MOSER RN 03/01/2003 05:45AM [phone] ADDENDUM: STOS PIPE SUPERVISOR Linsey Trujillo MD - 03/01/2003 12:01 AM CDT Progress Notes signed by Linsey Trujillo MD at 04/20/04 0941 Author: Linsey Trujillo MD Service: (none) Author Type: Physician Filed: 01/22/11 1427 Note Time: 03/01/03 0001 Status: Signed Communications Representative: Linsey Trujillo MD (Physician) NAME: YIMI GARCIA MR: [id number] ACCT: [id number] VISIT: [id number] DICTATING CLINICIAN: LINSEY IRENE MD JOB: [id number] CLINIC PROGRESS NOTE DATE OF VISIT: 03/01/2003 [...] Treat symptomatically. Follow up p.r.n. TT: CT: SMS:[id number] C: 03/02/03 00:13 DOCUMENT: [id number] Pb Finch MD - 01/01/2003 12:01 AM CST Progress Notes signed by Pb Finch MD at 01/16/03 1733 Author: bP Finch MD Service: (none) Author Type: Physician Filed: 01/22/11 1332 Note Time: 01/01/03 0001 Status: Signed Communications Representative: Pb Finch MD (Physician) NAME: YIMI GARCIA MR: [id number] ACCT: [id number] VISIT: [id number] DICTATING CLINICIAN: PB FINCH MD JOB: [id number] CLINIC PROGRESS NOTE DATE OF VISIT: 01/01/2003 [...] out of some very old schools in [place], and is concerned, possibly that molds may [...] problems. TT: CT: CC: DR. ARIZA ENT RAW:[id number] C: 01/03/03 11:35 DOCUMENT: [id number] Danish Arora MD - 12/31/2002 12:01 AM CST Progress Notes signed by Danish Arora MD at 01/02/03 1337 Author: Danish Arora MD Service: (none) Author Type: Physician Filed: 01/22/11 1331 Note Time: 12/31/02 0001 Status: Signed Communications Representative: Danish Arora MD (Physician) NAME: YIMI GARCIA MR: [id number] ACCT: [id number] VISIT: [id number] DICTATING CLINICIAN: Sree ARORA MD JOB: [id number] CLINIC PROGRESS NOTE DATE OF VISIT: 12/31/2002 SUBJECTIVE: : 1945. Chart 097150. Patient is a 57-year-old female who for [...] positive, will initiate appropriate treatment. TT: CT: WW:[id number] C: 01/01/03 19:11 DOCUMENT: [id number] STOS PIPE SUPERVISOR Ramon Ariza MD - 12/11/2002 12:01 AM CST Progress Notes signed by Ramon Ariza MD at 12/19/02 1212 Author: Ramon Ariza MD Service: (none) Author Type: Physician Filed: 01/22/11 1313 Note Time: 12/11/02 0001 Status: Signed Communications Representative: Ramon Ariza MD (Physician) NAME: YIMI GARCIA MR: [id number] ACCT: [id number] VISIT: [id number] DICTATING CLINICIAN: RAMON ARIZA MD JOB: [id number] CLINIC PROGRESS NOTE DATE OF VISIT: 12/11/2002 [...] is warranted. PLAN: See assessment. TT: CT: [facility]:[id number] C: 12/19/02 10:28 DOCUMENT: [id number] STOS PIPE SUPERVISOR Margot Davenport MD - 11/22/2002 12:01 AM CST Progress Notes signed by Margot Davenport MD at 12/01/02 1408 Author: Margot Davenport MD Service: (none) Author Type: Physician Filed: 01/22/11 1253 Note Time: 11/22/02 0001 Status: Signed Communications Representative: Margot Davenport MD (Physician) NAME: YIMI GARCIA MR: [id number] ACCT: VISIT: [id number] DICTATING CLINICIAN: MARGOT DAVENPORT MD JOB: [id number] CLINIC PROGRESS NOTE SUBJECTIVE: Chief Complaint: Follow [...] repeat it in five years. TT: CT: W:[id number] C: 11/28/02 07:20 DOCUMENT: [id number] STOS PIPE SUPERVISOR Caden Emerson MD - 11/08/2002 12:01 AM CST Progress Notes signed by Caden Emerson MD at 11/19/02 1434 Author: Caden Emerson MD Service: (none) Author Type: Physician Filed: 01/22/11 1232 Note Time: 11/08/02 0001 Status: Signed Communications Representative: Caden Emerson MD (Physician) IMPRESSION: Bone density on [facility] [place] W. SUBJECTIVE: REFERRING PROVIDER: MARGOT DAVENPORT MD [...] HRT consider followup BMD in five years. SLG:[id number] C: 11/12/02 11:53 DOCUMENT: [id number] STOS PIPE SUPERVISOR Michelle, [facility] - 10/24/2002 12:01 AM CST Phone Note signed by Margot Davenport MD at 11/19/02 9076 Author: Winnie Conversion Service: (none) Author Type: (none) Filed: 01/22/11 1210 Note Time: 10/24/02 0001 Status: Signed Communications Representative: Winnie Conversion IMPRESSION: hrt TO: MARGOT DAVENPORT FROM: JOSELITO LEE [phone] * PROVIDER MESSAGE: RETURN * 10/24/02 09:22AM * CALL REQUESTED * MESSAGE: pATIENT CALLING REGARDING * HOME PHONE:[phone] * HOT FLASHES SHE WAS STARTED ON * CONTACT PHONE:[phone] * CLONODINE 0.1 MG BID FOR THIS IT IS * tomorrow ok-ok to leave * NOT HELPING . She has made a follow * detailed message * up apt for 2 /5 states there was an * PHARMACY: [phone] * alternative med discussed wondering about start ing that and then coming in to the apt. SUBJECTIVE: ALLERGIES/SENSITIVITIES... NKA 11/10/01 03/17/02 CURRENT MEDICATIONS... Vivelle patch (0.05) Prometrium 200 mg qd 03/17/02 PERTINENT PAST HISTORY... Chronic Sinusitis; Varicose veins 11/10/01 03/17/02 WEIGHT: PATIENT IS NOT . PATIENT IS NOT NURSING. ASSESSMENT: hrt PLAN: DISPOSITION: NO DISPOSITION GIVEN CALL BY JOSELITO LEE 10/24/2002 09:20AM [phone] ADDENDUM: <> 10/25/2002 02:55PM by AURY GARCIA: [...] 0000 Note Time: 10/16/02 0001 Status: Signed Communications Representative: Margot Davenport MD (Physician) IMPRESSION: PHONE CALL: SUBJECTIVE: Responded to patient's letter. She had two requests; one was that the clonidine be started for hot flashes as we had discussed. I called that in for her to [facility] 0.1 mg p.o. b.i.d. p.r.n. #60. Second was she had requested acupuncture for metatarsal pain at [facility]. That was okayed through our managed care department. Six visits over the next two months. Left a message regarding both of these on her answering machine as she had requested. W:[id number] C: 10/16/02 19:21 DOCUMENT: [id number] STOS PIPE SUPERVISOR Solomon Alexis MD - 10/14/2002 12:01 AM CST Progress Notes signed by at 11/25/02 0001 Author: Solomon Alexis MD Service: (none) Author Type: Physician Filed: 01/22/11 1157 Note Time: 10/14/02 0001 Status: Signed Communications Representative: Solomon Alexis MD (Physician) IMPRESSION: Sinusitis. SUBJECTIVE: This is a 57-year-old female who comes to [facility] because of a sore throat [...] congestion. Recheck if not improved. TT: CT: [facility]:[id number] C: 10/15/02 21:13 DOCUMENT: [id number] STOS PIPE SUPERVISOR Margot Davenport MD - 10/11/2002 12:01 AM CST Progress Notes signed by at 11/25/022016 Author: Margot Davenport MD Service: (none) Author Type: Physician Filed: 01/22/11 1151 Note Time: 10/11/022016 Status: Signed Communications Representative: Margot Davenport MD (Physician) IMPRESSION: Menopausal symptoms. [...] spent in counseling. Discussed vitamin supplementation and gyuw-ibv-nrpwmyv remedies for menopause symptoms. Discussed using clonidine. [...] status. TT: [address]: 25 minutes. FAMILIA:[id number] C: 10/17/02 11:50 DOCUMENT: [id number] STOS PIPE SUPERVISOR Conversion, [facility] - 11/10/2001 12:01 AM CST Progress Notes signed by Kelin Galicia at 11/23/01 0947 Author: [facility] Conversion Service: (none) Author Type: (none) Filed: 01/22/11 0407 Note Time: 11/10/01 0001 Status: Signed Communications Representative: Winnie Conversion IMPRESSION: Moderate low-frequency sensorineural hearing [...] being worse than the right. A speech temporary receptionist threshold was obtained at 15 dBHL bilaterally. [...] for that at this time. TT: CT: KO:[id number] C: DOCUMENT: [id number] Airam Mccall MD - 02/17/2001 12:01 AM CDT Progress Notes signed by Airam Reyes MD at 11/24/02 1539 Author: Airam Reyes MD Service: (none) Author Type: Physician Filed: 01/21/11 2248 Note Time: 02/17/01 0001 Status: Signed Communications Representative: Airam Reyes MD (Physician) IMPRESSION: Breast atrophy [...] Mery about fees. CC: MARGOT DAVENPORT MD MC:[id number] C: DOCUMENT: [id number] STOS PIPE SUPERVISOR documented in this encounter Plan of Treatment Not on filedocumented as of this encounter Procedures Procedure Name Priority Date/Time Associated Comments Diagnosis CT SINUS WO IV CONT Routine 01/03/2003 4:52 PM Re sults for this ASBESTOS PIPE SUPERVISOR procedure are i n the results section. SEXUALLY TRANSMITTED Routine 05/19/2002 6:16 PM R esults for this DISEASE PROBE CDT procedure are in the results section. [facility] Routine 05/19/2002 6:16 PM Results for this [facility] CDT procedure ar e in the results section. documented in this encounter Results CT Sinus WO IV Cont (01/03/2003 4:52 PM ASBESTOS PIPE SUPERVISOR) Anatomical Region Laterality Modality Head Other Specimen (Source) Anatomical Location Collection Method / Collectio n Time Received Time / Laterality Volume Impressions 01/03/2003 4:52 PM ASBESTOS PIPE SUPERVISOR : ??Negative sinus CT. tss/[id number] Dictating BIBIANA VILLASEÑOR RADIOLOGIST Narrative 01/03/2003 4:52 PM ASBESTOS PIPE SUPERVISOR FINDINGS: ??Contiguous direct coronal CT scans of [...] nasal congestion. IMPRESSION : Negative sinus CT. tss/[id number] Dictating BIBIANA VILLASEÑOR RADIOLOGIST Ramon Ariza MD RAD CT (ABNORMAL) [facility] (05/19/2002 6:16 PM CDT) Patholo gist Method Time Signature Wet Prep ? No normal HP CONVERSION range Wet Prep Trich Negative No normal HP CONVERSION [facility] Wet Prep WBC Moderate No normal HP CONVERSION [facility] Wet Prep Many (A) No normal HP CONVERSION Bacteria [facility] Wet Prep Clue Negative No normal HP CONVERSION Cells [facility] Wet Prep Yeast Negative No normal HP CONVERSION [facility] Wet Prep Amine Negative No normal [...] HP CONVERSION Transmitted Disease Probe Comment: Patient: YIMI GARCIA Sexually Trans Disease Probe @ ?Collected: ??[id number] ??[id number] Source: ENDOCERV ?Processed: ??[id number] ??[id number] Final Report ------ ?[id number] ??[id number] No Neisseria gonorrhoeae by DNA probe. No Chlamydia trachomatis by amplified DN A probe. @ = Sexually Trans Disease Probe Perform ed at ??[address] [facility] ?[place] [address] Specimen (Source) Anatomical Collection Method Collection Time Re ceived Time Location / / Volume Laterality 05/19/2002 6:16 PM CDT Margot Davenport MD LAB_1 Performing Organization Address City/State/ZIP Code Phon e Number HP CONVERSION documented in this encounter Visit Diagnoses Not on filedocumented in this encounter Care Teams Program Manufacturing Leader Relationship Specialty Start Date End Date Titus Medina MD PCP - General 09/16/1996 03/17/15 documented as of this encounter
--- OUTSIDE RECORDS SUMMARY | 2022-07-30 20:32 | XMS_ITS | Encounter Summary ---
:1945 Author Organization [facility] Address [address] [place] [address] Care Team Providers Name Role Phone Titus [...] surgery documented in this encounter Care Teams Fabrication Department Supervisor Relationship Specialty Start Date End Date Titus Medina MD PCP - General 09/16/1996 03/17/15 documented as of this encounter
--- OUTSIDE RECORDS SUMMARY | 2022-07-30 20:32 | XMS_ITS | Encounter Summary ---
:1945 Author Organization [facility] Address [address] [place] [address] Care Team Providers Name Role Phone Titus Medina MD Primary Care Provider Encounter Details Date Type Department Care Team Description 01/07/1994 Orders Only [facility] Pillo King, Routine general Radiology MD medical examination [address] [facility] [place] [address] CLINIC facility [phone] [address] [place] [address] Social History Tobacco Use Types Packs/Day Years Used Date Smoking Tobacco: Never Assessed Sex Assigned at Date Recorded Not on file documented as of this encounter Plan of Treatment Not on filedocumented as of this encounter Visit Diagnoses Diagnosis Routine general medical examination at [facility] facility Routine general medical examination at a [facility] care facility documented in this encounter Care Teams Director Sterile Processing Relationship Specialty Start Date End Date Titus Medina MD PCP - General 09/16/1996 03/17/15 documented as of this encounter
--- OUTSIDE RECORDS SUMMARY | 2022-07-30 20:32 | XMS_ITS | Encounter Summary ---
:1945 Author Organization [facility] Address [address] [place] [address] Care Team Providers Name Role Phone Titus Medina MD Primary Care Provider Encounter Details Date Type Department Care Team Description 12/30/1993 Office Visit [facility] Stephan Mcknight, Other insomnia; [address] [facility] [place] Unspecifie d sinusitis (chronic) [place] [address] Social History Tobacco Use Types Packs/Day Years Used Date Smoking Tobacco: Never Assessed Sex Assigned at Date Recorded Not on file documented as of this encounter Plan of Treatment Not on filedocumented as of this encounter Visit Diagnoses Diagnosis Other insomnia Insomnia, unspecified Unspecified sinusitis (chronic) documented in this encounter Care Teams Engine Room Helper Relationship Specialty Start Date End Date Titus Medina MD PCP - General 09/16/1996 03/17/15 documented as of this encounter
--- OUTSIDE RECORDS SUMMARY | 2022-07-30 20:32 | XMS_ITS | Encounter Summary ---
:1945 Author Organization [facility] Address [address] [place] [address] Care Team Providers Name Role Phone Titus Medina MD Primary Care Provider Encounter Details Date Type Department Care Team Description 07/28/1994 Office Visit [facility] Everton Tean, Acute sinusitis, unspecified ; [address] [facility] [place] Unspecified viral infection, in conditio ns classified elsewhere and of unspecified site; [address] [place] [address] Acute upper respiratory [place] [address] [place], [place] [address] Social History Tobacco Use Types Packs/Day Years [...] site documented in this encounter Care Teams Associate Sales Relationship Specialty Start Date End Date Titus Medina MD PCP - General 09/16/1996 03/17/15 documented as of this encounter
--- OUTSIDE RECORDS SUMMARY | 2022-07-30 20:32 | XMS_ITS | Encounter Summary ---
:1945 Author Organization [facility] Address [address] [place] [address] Care Team Providers Name Role Phone Titus Medina MD Primary Care Provider Encounter Details Date Type Department Care Team Description 07/20/2001 Hospital Encounter [facility] Margot Pavon MD [address] [place], [place] [address] [address] [place], [place] [phone] [address] (Wo rk) Social History Tobacco Use Types [...] n is clinically indicated at this time. [facility] C: 07/20/01 4:44: 51 PM Narrative 07/20/2001 [...] n is clinically indicated at this time. [facility] C: 07/20/01 4:44: 51 PM Margot Pavon MD [facility] US US Pelvic (EV Only) (07/20/2001 8:00 [...] 07/20/01 4:44: 51 PM Margot Pavon MD [facility] documented in this encounter Visit Diagnoses Not on filedocumented in this encounter Care Teams Instrumentation And Control Technician Relationship Specialty Start Date End Date Titus Medina MD PCP - General 09/16/1996 03/17/15 documented as of this encounter
--- OUTSIDE RECORDS SUMMARY | 2022-07-30 20:32 | XMS_ITS | Encounter Summary ---
:1945 Author Organization [facility] Address [address] [place] [id number] Care Team Providers Name Role Phone Titus Medina MD Primary Care Provider Encounter Details Date Type Department Care Team Description 07/22/1995 Office Visit [facility] Yahir Trivedi MD Chronic rhinitis [address] [facility] [address] [place], [place] [address] [address] [place] [address] [phone] (Wo rk) Social History Tobacco Use Types [...] The last time she was treated at [facility] as best I can determine was in November. She says she has been treated also when she has been out of town. She seemed to think she has had [id number] episodes per year. No history of associated [...] degree of symptoms when she lived in [place] as compared to when symptoms first started in the early 1980s in [place], and currently. No noted provocative factors for [...] phone numbers for both here and at [place]; I asked her to call in the [...] rhinitis documented in this encounter Care Teams Assistant Secretary Relationship Specialty Start Date End Date Titus Medina MD PCP - General 09/16/1996 03/17/15 documented as of this encounter
--- OUTSIDE RECORDS SUMMARY | 2022-07-30 20:32 | XMS_ITS | Encounter Summary ---
:1945 Author Organization [facility] [facility] Address [address] [place] [address] Care Team Providers Name Role Phone Titus Medina MD Primary Care Provider Encounter Details Date Type Department Care Team Description 12/03/1995 Office Visit [facility] Yahir Trivedi MD Chronic rhinitis; [address] Dysfunction of eustachian tube [place], [place] [address] (Wo rk) Social History [...] questions or difficulties. cc: Yahir Trivedi MD [facility] documented in this encounter Plan of Treatment Not on filedocumented as of this encounter Visit Diagnoses Diagnosis Chronic rhinitis Dysfunction of eustachian tube Dysfunction of Eustachian tube documented in this encounter Care Teams Jira Administrator Relationship Specialty Start Date End Date Titus Medina MD PCP - General 09/16/1996 03/17/15 documented as of this encounter
--- OUTSIDE RECORDS SUMMARY | 2022-07-30 20:32 | XMS_ITS | Encounter Summary ---
:1945 Author Organization [facility] Address [address] [place] [id number] Care Team Providers Name Role Phone Titus Medina MD Primary Care Provider Encounter Details Date Type Department Care Team Description 03/17/1994 Office Visit [facility], Acute sinusitis, [address] [facility], [address], [place] [address] [facility] [phone] Social History Tobacco Use Types Packs/Day Years Used Date Smoking Tobacco: Never Assessed Sex Assigned at Date Recorded Not on file documented as of this encounter Plan of Treatment Not on filedocumented as of this encounter Visit Diagnoses Diagnosis Acute sinusitis, unspecified documented in this encounter Care Teams Hydro Pneumatic Tester Relationship Specialty Start Date End Date Titus Medina MD PCP - General 09/16/1996 03/17/15 documented as of this encounter
--- OUTSIDE RECORDS SUMMARY | 2022-07-30 20:32 | XMS_ITS | Encounter Summary ---
:1945 Author Organization [facility] Address [address] [place] [address] Care Team Providers Name Role Phone Titus Medina MD Primary Care Provider Encounter Details Date Type Department Care Team Description 07/20/2002 PN Conversion Only [facility] [address] ie, Plastic Surgery [address] Lower[address] [place] [facility] [place] [address] [id number] Social History Tobacco Use Types Packs/Day Years Used Date Smoking Tobacco: Never Assessed Sex Assigned at Date Recorded Not on file documented as of this encounter Progress Notes Airam Reyes MD - 07/20/2002 12:01 AM CDT Progress Notes signed by at 10/21/02 3205 Author: Airam Reyes MD Service: (none) Author Type: Physician Filed: 01/22/11 0959 Note Time: 07/20/022157 Status: Signed Analytic Manager: Airam Reyes MD (Physician) IMPRESSION: Postop check. [...] to check. She received a letter from formerly [facility] telling her that the previously denied scar [...] ASSESSMENT: Postop check. PLAN: N/A TT: CT: MC:[id number] C: DOCUMENT: [id number] Rito Mcfarland DPM - 06/14/2002 12:01 AM CDT Progress Notes signed by Rito Sarabia DPM at 06/22/02 1142 Author: Rito Sarabia DPM Service: (none) Author Type: Physician Filed: 01/22/11 0906 Note Time: 06/14/02 0001 Status: Signed Analytic Manager: Rito Sarabia DPM (Physician) IMPRESSION: Plantar fasciitis, [...] use of the night splint. TT: CT: CHS:[id number] C: DOCUMENT: [id number] Margot Motley MD - 05/19/2002 12:01 AM CDT Progress Notes signed by at 11/25/02 0001 Author: Margot Motley MD Service: (none) Author Type: Physician Filed: 01/22/11 0832 Note Time: 05/19/02 0001 Status: Signed Analytic Manager: Margot Motley MD (Physician) IMPRESSION: Vaginitis. Intermittent cold sores. Hormone replacement therapy. SUBJECTIVE: Chief Complaint: Discuss hormones. Possible yeast infection. Ljaim-tyqi-rwtf-old female here with concerns about hormone replacement [...] osteoporosis. TT: [address]: 15 minutes. FAMILIA:[id number] C: DOCUMENT: [id number] Airam Mccall MD - 05/11/2002 12:01 AM CDT Progress Notes signed by at 10/21/02 1842 Author: Airam Reyes MD Service: (none) Author Type: Physician Filed: 01/22/11 0821 Note Time: 05/11/022157 Status: Signed Analytic Manager: Airam Reyes MD (Physician) IMPRESSION: Postop check with scar revision. SUBJECTIVE: Ramona is here for a revision of her brow lift. OBJECTIVE: Both scars were anesthetized and incisions were opened with the [place] cautery. Dissection was taken down to the [...] scar revision. PLAN: See above. TT: CT: MC:[id number] C: DOCUMENT: [id number] Danish Haywood MD - 04/24/2002 12:01 AM CDT Progress Notes signed by at 11/25/02 0001 Author: Danish Aguilera MD Service: (none) Author Type: (none) Filed: 01/22/11 0756 Note Time: 04/24/022157 Status: Signed Analytic Manager: Danish Agiulera MD (Physician) IMPRESSION: Patient with consistent history [...] for a recheck and exam. TT: CT: NENITA:[id number] C: DOCUMENT: [id number] E MOVER Airam Reyes MD - 04/18/2002 12:01 AM CDT Progress Notes signed by at 10/21/02 1839 Author: Airam Reyes MD Service: (none) Author Type: Physician Filed: 01/22/11 0748 Note Time: 04/18/022157 Status: Signed Analytic Manager: Airam Reyes MD (Physician) IMPRESSION: Postop check. 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 TT: CT: MILA:[id number] C: DOCUMENT: [id number] E MOVER Solomon Verdin MD - 04/01/2002 12:01 AM CDT Progress Notes signed by Solomon Verdin MD at 04/03/02 0758 Author: Solomon Verdin MD Service: (none) Author Type: Physician Filed: 01/22/11 0727 Note Time: 04/01/02 0001 Status: Signed Analytic Manager: Solomon Verdin MD (Physician) IMPRESSION: Rash consistent [...] basis. Call if other questions. TT: CT: TPH:[id number] C: DOCUMENT: [id number] Conversion, [facility] - 03/17/2002 12:01 AM CDT Phone Note signed by at 03/17/02 3280 Author: [facility] Conversion Service: (none) Author Type: (none) Filed: 01/22/11 0706 Note Time: 03/17/02 0001 Status: Signed Analytic Manager: Winnie Conversion IMPRESSION: Yeast inf TO: MARGOT MOTLEY FROM: JOSELITO JESUS [phone] * PROVIDER MESSAGE: ROUTINE * 03/17/02 01:14PM * *WITHIN 4 HOURS * MESSAGE: patient calling she was * HOME PHONE:[phone] * recently on clindamyacin for a * CONTACT PHONE:[phone] * sinus infectio n stopped this 8 * PHARMACY: [phone] * days ago states she has had [...] GIVEN CALL BY JOSELITO LEE 03/17/2002 01:11PM [phone] ADDENDUM: <> 03/17/2002 02:33PM by NEDRA DAHL: [...] 0543 Note Time: 01/17/02 0001 Status: Signed Analytic Manager: Airam Reyes MD (Physician) IMPRESSION: Postop check. [...] ASSESSMENT: Postop check. PLAN: N/A TT: CT: :[id number] C: DOCUMENT: [id number] Airam Mccall MD - 01/03/2002 12:01 AM CST Progress Notes signed by at 10/21/02 182 Author: Airam eRyes MD Service: (none) Author Type: Physician Filed: 01/22/11 0524 Note Time: 01/03/02 0001 Status: Signed Analytic Manager: Airam Reyes MD (Physician) IMPRESSION: Postop check [...] five days for suture removal. TT: CT: :[id number] C: DOCUMENT: [id number] Jose David Abbott MD - 12/28/2001 12:01 AM CST Progress Notes signed by at 10/21/02 182 Author: Jose David Ariza MD Service: (none) Author Type: Physician Filed: 01/22/11 0517 Note Time: 12/28/01 0001 Status: Signed Analytic Manager: Jose David Ariza MD (Physician) IMPRESSION: Mild [...] manipulation. All questions were answered. TT: CT: [facility]:[id number] C: DOCUMENT: [id number] E MOVER Clifton Rasmussen MD - 12/07/2001 12:01 AM CST Progress Notes signed by Clifton Rasmussen MD at 12/13/01 1531 Author: Clifton Rasmussen MD Service: (none) Author Type: Physician Filed: 01/22/11 0447 Note Time: 12/07/01 0001 Status: Signed Analytic Manager: Clifton Rasmussen MD (Physician) IMPRESSION: Pain in butt, right calf, and some control with acupuncture. SUBJECTIVE: Ramona is here for another acupuncture treatment. Unfortunately, she showed up at [facility] instead of [facility] today at no fault to her. We [...] acupuncture through the outside clinics. TT: CT: MPR:[id number] C: DOCUMENT: [id number] E MOVER Conversion, [facility] - 11/10/2001 12:01 AM CST Phone Note signed by at 11/10/01 1008 Author: Winnie Conversion Service: (none) Author Type: (none) Filed: 01/22/11 0408 Note Time: 11/10/01 0001 Status: Signed Analytic Manager: Winnie Conversion IMPRESSION: Bleeding TO: MISSAEL RADHA FROM: DAISY CHRISTENSEN [id number] * PROVIDER MESSAGE: RETURN * 11/10/01 10:08AM * CALL REQUESTED * MESSAGE: Patient had a D&C with * HOME PHONE:[phone] * removal of polyp Nov 01. Was told * CONTACT PHONE:[phone] * to expect some bleeding x 5 days. * Ramona Leave message on * She is still having some brownish * machine, not with son * red vag discharge, varies from * PHARMACY: [phone] * light flow to spotting. She is [...] GIVEN CALL BY DAISY CHRISTENSEN 11/10/2001 09:58AM [id number] ADDENDUM: <> 11/11/2001 11:58AM by BRISA CARROLL: Pt calling for an answer to above note. Dr Montgomery out of town will be given to [facility] or Dr Cobb. <> 11/11/2001 01:18PM by BRISA CARROLL: Per Dr Cobb can bleed up to 2wks after D and C. This is normal. <> 11/18/2001 05:32PM by MISSAEL MONTGOMERY MD: LEFT MESSAGE YESTERDAY THAT BLEEDING PROBABLY FROM THICK BASE OF ENDOM ETRIAL POLYP. IF PERSISTS COULD INCREASE PROMETRIUM TO BID. Electronically signed by [facility], [facility] at 08/20/2016 3:50 PM HOUSE MOVER Airam Reyes MD - 11/10/2001 12:01 AM CST Progress Notes signed by at 10/21/02 1821 Author: Airam Reyes MD Service: (none) Author Type: Physician Filed: 01/22/11 0407 Note Time: 11/10/01 0001 Status: Signed Analytic Manager: Airam Reyes MD (Physician) IMPRESSION: Postop check [...] trouble coming during the day. TT: CT: :[id number] C: DOCUMENT: [id number] E MOVER Ángel Hodgson MD - 10/24/2001 12:01 AM CST Progress Notes signed by Ángel Hodgson MD at 04/05/02 1632 Author: Ángel Hodgson MD Service: (none) Author Type: Physician Filed: 01/22/11 0341 Note Time: 10/24/01 0001 Status: Signed Analytic Manager: Ángel Hodgson MD (Physician) IMPRESSION: Spider varicose [...] once the solution is acquired. TT: CT: MTS:[id number] C: DOCUMENT: [id number] Margot Motley MD - 10/24/2001 12:01 AM CST Progress Notes signed by Margot Motley MD at 11/04/01 1130 Author: Margot Motley MD Service: (none) Author Type: Physician Filed: 01/22/11 0341 Note Time: 10/24/012157 Status: Signed Analytic Manager: Margot Motley MD (Physician) IMPRESSION: Health maintenance. [...] She is . 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 She is a never smoker. Has [...] masses, guarding, rebound. Well- healed surgical scar. PEDICAB DRIVER: Normal external female genitalia. Perineum urethra and [...] in a year or p.r.n. TT: CT: FAMILIA:[id number] C: DOCUMENT: [id number] E MOVER Missael Montgomery MD - 10/20/2001 12:01 AM CST Progress Notes signed by at 11/25/02 0001 Author: Missael Montgomery MD Service: (none) Author Type: Physician Filed: 01/22/11 0337 Note Time: 10/20/01 0001 Status: Signed Analytic Manager: Missael Montgomery MD (Physician) IMPRESSION: Endometrial polyp. Subserous fibroid. Irregular bleeding. SUBJECTIVE: Cmxsb-pciz-pmlj female, para 1-0-0-1 sent for consultation by [...] Ht: 5 ft. 7 in. Wt: 148. PEDICAB DRIVER: On pelvic exam, uterus retroverted. It is mildly enlarged. Adnexa negative. ASSESSMENT: Endometrial polyp. Subserous fibroid. Irregular bleeding. PLAN: Discussed hysteroscopy and D&C, and this will be scheduled with local anesthesia. TT: CT: CC: LAKHWINDER COBB MD, MARKETING ASSISTANT [facility] MARGOT MOTLEY MD, [facility] NSS:[id number] C: DOCUMENT: [id number] E MOVER Lakhwinder Cobb - 10/03/2001 12:01 AM CST Progress Notes signed by Lakhwinder Cobb MD at 07/13/02 1213 Author: Lakhwinder Cobb MD Service: (none) Author Type: Physician Filed: 01/22/11 0312 Note Time: 10/03/01 0001 Status: Signed Analytic Manager: Lakhwinder Cobb MD (Physician) IMPRESSION: Sonohysterogram. SUBJECTIVE: [...] a D&C. Answered her questions. TT: CT: PMM:[id number] C: DOCUMENT: [id number] E MOVER Conversion, [facility] - 09/23/2001 12:01 AM CST Phone Note signed by at 09/23/01 4223 Author: [facility] Conversion Service: (none) Author Type: (none) Filed: 01/22/11 0303 Note Time: 09/23/01 0001 Status: Signed Analytic Manager: Imr Conversion IMPRESSION: emesis/diarrhea TO: MARGOT MOTLEY FROM: ELLY MARTINEZ LPN [phone] * PROVIDER MESSAGE: ROUTINE * 09/23/01 04:52PM * *WITHIN 4 HOURS * MESSAGE: Pt calling reports having * HOME PHONE:[phone] * muscle aches, not sure about fever, * CONTACT PHONE:[phone] * emesis. Sxs started around midnight. Vomited [...] CALL BY ELLY MARTINEZ LPN 09/23/2001 04:46PM [phone] ADDENDUM: E MOVER Shamika Jaquez - 09/13/2001 12:01 AM CST Progress Notes signed by Shamika Jaquez DPM at 10/12/01 5169 Author: Shamika Jaquez DPM Service: (none) Author Type: (none) Filed: 01/22/11 0248 Note Time: 09/13/01 0001 Status: Signed Analytic Manager: Shamika Jaquez DPM (Physician) IMPRESSION: Neuroma second [...] point will try to make do with yqnj-uej-jtujlsf blue temporary devices from the [facility]. DJP:[id number] C: DOCUMENT: [id number] E MOVER Conversion, [facility] - 09/12/2001 12:01 AM CST Phone Note signed by at 09/12/01 1944 Author: Imr Conversion Service: (none) Author Type: (none) Filed: 01/22/11 0246 Note Time: 09/12/012157 Status: Signed Analytic Manager: Winnie Conversion IMPRESSION: Prometrium refill TO: LAKHWINDER COBB FROM: BRISA CARROLL [phone] 09/12/01 * PROVIDER MESSAGE: RETURN * 09:30AM * CALL REQUESTED * MESSAGE: Requests prometrium refill. * HOME PHONE:[phone] * Told to take 200mgm twice a * CONTACT PHONE:[phone] * day.(Not in dictation) * ramona * SUBJECTIVE: * PHARMACY: [phone] * ALLERGIES/SENSITIVITIES... NKA: * Mamadou Long * 09/12/01 CURRENT MEDICATIONS... Estrogen patch, prometrium 400mgm, zulindac 09/12/01 PERTINENT PAST HISTORY... Chronic Sinusitis; Varicose veins; 07/01/01 08/11/01 09/12/01 WEIGHT: PATIENT IS NOT . PATIENT IS NOT NURSING. ASSESSMENT: Prometrium refill PLAN: DISPOSITION: NO DISPOSITION GIVEN CALL BY BRISA CARROLL 09/12/2001 09:24AM [id number] ADDENDUM: <> 09/13/2001 10:55AM by BRISA CARROLL: Pharmacy called 09/12 to fill prometrium 200 mgm daily. Pt called back to request 200mgm bid which stopped her bldg. New Rx called to her pharmacy today per Dr Aguayo order. Pt notified. E MOVER Solomon Alexis MD - 09/10/2001 12:01 AM CST Progress Notes signed by at 11/25/022157 Author: Solomon Alexis MD Service: (none) Author Type: Physician Filed: 01/22/11 0245 Note Time: 09/10/012157 Status: Signed Analytic Manager: Solomon Alexis MD (Physician) IMPRESSION: Viral URI. SUBJECTIVE: Ramona is a 56-year-old female who comes to [facility] because of sore throat and [...] clear. ASSESSMENT: Viral URI. PLAN: Symptomatic treatment. MCKINLEY:[id number] C: DOCUMENT: [id number] Lakhwinder Higgins - 08/16/2001 12:01 AM CST Progress Notes signed by at 11/25/022157 Author: Lakhwinder Cobb MD Service: (none) Author Type: Physician Filed: 01/22/11 0213 Note Time: 08/16/012157 Status: Signed Analytic Manager: Lakhwinder Cobb MD (Physician) IMPRESSION: Postmenopausal bleeding. SUBJECTIVE: A 56-year-old female in to discuss an endometrial biopsy, which was carried out on 08/04. The biopsy was essentially normal and showed weakly proliferative endometrium. There is some hint of endocervical polyp. The endometrial stripe had measured 1.2 cm, however. She presently is on a patch daily and then on Prometrium 200 mg daily. The pickle sorter did recommend repeating the ultrasound to take [...] and her history, and her diagnostic steps. PMM:[id number] C: DOCUMENT: [id number] E MOVER Conversion, [facility] - 08/11/2001 12:01 AM CST Phone Note signed by at 08/11/01 0856 Author: [facility] Conversion Service: (none) Author Type: (none) Filed: 01/22/11 0207 Note Time: 08/11/01 0001 Status: Signed Analytic Manager: Winnie Conversion TO: LAKHWINDER COBB FROM: AMANDA CAM LPN [id number] * PROVIDER MESSAGE: ROUTINE * 08/11/01 08:56AM * *WITHIN 4 HOURS * MESSAGE: WAS GIVEN RX FOR PROVERY 10 * HOME PHONE:[phone] * MG, SIG 3 PILLS QD. PHARMACY TOLD * CONTACT PHONE:[phone] * PT. TO DOUBLE CHECK WITH DR. COBB ABOUT DIRECTIONS. PT HUNG UP BEFORE NOTE COMPLETED. PLEASE CALL PT. SUBJECTIVE: ALLERGIES/SENSITIVITIES... NKA: 07/01/01 08/11/01 CURRENT MEDICATIONS... Does not know name; 07/01/01 08/11/01 PERTINENT PAST HISTORY... Chronic Sinusitis; Varicose veins; 07/01/01 08/11/01 WEIGHT: PATIENT IS NOT . PATIENT IS NOT NURSING. ASSESSMENT: PLAN: DISPOSITION: NO DISPOSITION GIVEN CALL BY AMANDA CAM LPN 08/11/2001 08:53AM [id number] ADDENDUM: <> 08/11/2001 02:20PM by REY ESTEBAN CAR CONDITIONER: Msg left w/ pt per Dr. Cobb 30 mg qd is correct. E MOVER Lakhwinder Cobb - 08/04/2001 12:01 AM CST Progress Notes signed by Lakhwinder Cobb MD at 07/13/02 1016 Author: Lakhwinder Cobb MD Service: (none) Author Type: Physician Filed: 01/22/11 0158 Note Time: 08/04/01 0001 Status: Signed Analytic Manager: Lakhwinder Cobb MD (Physician) IMPRESSION: Endometrial hyperplasia and hormone replacement therapy. 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 She is [...] an IUD inserted by the [facility] in [facility] [place] earlier this year. States, historically, she has [...] the cervix slightly and, with a needle trash truck driver, was able to grasp the [...] and so forth. CC: MARGOT MOTLEY MD PMM:[id number] C: DOCUMENT: [id number] E MOVER Conversion, [facility] - 07/25/2001 12:01 AM CDT Phone Note signed by at 07/25/01 7665 Author: [facility] Conversion Service: (none) Author Type: (none) Filed: 01/22/11 0143 Note Time: 07/25/01 0001 Status: Signed Analytic Manager: Winnie Conversion IMPRESSION: US RESULTS TO: EDWARD HERNANDEZ FROM: YOLI RAY LPN [id number] * PROVIDER MESSAGE: RETURN * 07/25/01 02:35PM * CALL REQUESTED * MESSAGE: OKAY FOR WEDNESDAY. THE * HOME PHONE:[phone] * PATIENT IS CALLING FOR THE PELVIC * CONTACT PHONE:[phone] * US DONE LAST WEEK AT [facility] [...] CALL BY YOLI RAY LPN 07/25/2001 02:33PM [id number] ADDENDUM: <> 07/26/2001 09:01AM by UYEN RING CAR CONDITIONER: dr motley left message--thickened endometrium on u/s--consult pattern repair person re: iud removal, emb vs hysterscopy Electronically signed by [facility], [facility] at 08/20/2016 3:50 PM HOUSE MOVER Conversion, [facility] - 07/22/2001 12:01 AM CDT Phone Note signed by at 07/22/01 1036 Author: [facility] Conversion Service: (none) Author Type: (none) Filed: 01/22/11 0141 Note Time: 07/22/01 0001 Status: Signed Analytic Manager: Winnie Conversion IMPRESSION: Request for US results TO: MARGOT MOTLEY FROM: JOSELITO LEE [phone] * PROVIDER MESSAGE: FYI *NO * 07/22/01 10:36AM * INPUT NECESSARY * MESSAGE: Patient calling for results * HOME PHONE:[phone] * of ultra sound from 07/20 she is * CONTACT PHONE:[phone] * unable to leave contact number as she is traveling she woll call back around 4: 30 SUBJECTIVE: ALLERGIES/SENSITIVITIES... NKA: 07/01/01 CURRENT MEDICATIONS... Does not know name; 07/01/01 PERTINENT PAST HISTORY... Chronic Sinusitis; Varicose veins; 07/01/01 WEIGHT: OMITTED ASKING ABOUT . OMITTED ASKING ABOUT NURSING. ASSESSMENT: Request for US results PLAN: DISPOSITION: NO DISPOSITION GIVEN CALL BY JOSELITO JESUS 07/22/2001 10:33AM [phone] ADDENDUM: Son Mcgregor MD - 07/13/2001 12:01 AM CDT Progress Notes signed by at 10/21/02 7543 Author: Son Malloy MD Service: (none) Author Type: Physician Filed: 01/22/11 0129 Note Time: 07/13/012157 Status: Signed Analytic Manager: Son Malloy MD (Physician) IMPRESSION: Trochanteric bursitis. [...] minimal. She will follow up as needed. PRD:[id number] C: DOCUMENT: [id number] E MOVER Conversion, [facility] - 07/01/2001 12:01 AM CDT Phone Note signed by at 07/01/01 0911 Author: [facility] Conversion Service: (none) Author Type: (none) Filed: 01/22/11 0114 Note Time: 07/01/01 0001 Status: Signed Analytic Manager: Winnie Conversion TO: MARGOT MOTLEY FROM: BENITA GUSTAFSON RN [id number] * PROVIDER MESSAGE: ROUTINE * 07/01/01 09:11AM * *WITHIN 4 HOURS * MESSAGE: Pt. calling; she would like * HOME PHONE:[phone] * to know if she should keep taking * CONTACT PHONE:[phone] * her medication (she does not know [...] CALL BY BENITA GUSTAFSON RN 07/01/2001 09:04AM [id number] ADDENDUM: <> 07/01/2001 09:12AM by BENITA GUSTAFSON RN: Pt. calling back, she checked with pharmacy and the medication she is taking is Prometrium. She also wants to be sure Dr. Motley knows that she is having and US on July 18. <> 07/04/2001 02:12PM by UYEN RING LPN: per dr motley. Yes--pt should stay on the same dose of prometrium pre scribed by pattern repair person at least until we have ultrasound reports. [...] 0109 Note Time: 06/28/01 0001 Status: Signed Analytic Manager: Airam Reyes MD (Physician) IMPRESSION: Postop check. [...] check her in three or four months. MC:[id number] C: DOCUMENT: [id number] Clifton Pink MD - 06/27/2001 12:01 AM CDT Progress Notes signed by Clifton Rasmussen MD at 07/08/01 0515 Author: Clifton Rasmussen MD Service: (none) Author Type: Physician Filed: 01/22/11 0108 Note Time: 06/27/012157 Status: Signed Analytic Manager: Clifton Rasmussen MD (Physician) IMPRESSION: Chronic right [...] following up on this upon my return. MPR:[id number] C: DOCUMENT: [id number] Winnie Martinez - 06/16/2001 12:01 AM CDT Phone Note signed by at 06/16/01 0903 Author: Winnie Martinez Service: (none) Author Type: (none) Filed: 01/22/1155 Note Time: 06/16/01 0001 Status: Signed Analytic Manager: Winnie Martinez IMPRESSION: Ultrasound scheduling SUBJECTIVE: ALLERGIES/SENSITIVITIES... NKA * HOME PHONE:[phone] * 04/11/01 05/06/01 CURRENT MEDICATIONS... vivvelle .05mg patch; medroxyprogersterone begining of the month 05/06/01 PERTINENT PAST HISTORY... Chronic Sinusitis; Varicose veins; 04/11/01 05/06/01 ASSESSMENT: Ultrasound scheduling DISPOSITION: NO DISPOSITION GIVEN PLAN: [facility] [place]... If pt calls to schedule pelvic u/s, Latanya will talk with her at front office associate, [phone]. She has paperwork at desk. CALL BY SOHA WILCOX RN 06/16/2001 09:02AM ADDENDUM: E MOVER Margot Motley MD - 06/14/2001 12:01 AM CDT Progress Notes signed by Margot Motley MD at 06/30/01 0840 Author: Margot Motley MD Service: (none) Author Type: Physician Filed: 01/22/11 0053 Note Time: 06/14/01 0001 Status: Signed Analytic Manager: Margot Motley MD (Physician) IMPRESSION: Postmenopausal bleeding with IUD in place. SUBJECTIVE: Chief Complaint: Irregular bleeding. Tcwob-qgss-pgfy-old perimenopausal female who is having irregular bleeding. She has been on Vivelle estrogen patch and cyclic progesterone with withdrawal bleeding. She had never ceased periods all together. She is concerned about possibility of fertility. She had a period November 04 through and then through . She saw her securities teller and requested IUD placement to make sure that she does not have any . From December through February she had one period a month. Had one period in March. In April she bled the through the , had spotting the through the . She saw her securities teller at the end of April. He switched [...] hormone to try to stop the spotting. FAMILIA:[id number] C: DOCUMENT: [id number] Conversion, [facility] - 06/07/2001 12:01 AM CDT Phone Note signed by at 06/07/01 9958 Author: Winnie Conversion Service: (none) Author Type: (none) Filed: 01/22/11 0045 Note Time: 06/07/01 0001 Status: Signed Analytic Manager: Winnie Conversion IMPRESSION: RX REFILL TO: MARGOT MOTLEY FROM: YOLI RAY LPN [id number] * PROVIDER MESSAGE: RETURN * 06/07/01 04:19PM * CALL REQUESTED * MESSAGE: PATIENT IS CALLING FOR A * HOME PHONE:[phone] * REFILL PROMETRIUM. WANTS A NEW * CONTACT PHONE:[phone] * PRESCRIPTION CALLED INTO THE * HOME CALL IF PROBLEM * PHARMACY FOR 200MG QD NUMBER 30 * PHARMACY: [phone] * SUBJECTIVE: * SNYDERS * ALLERGIES/SENSITIVITIES... NKA 04/11/01 05/06/01 CURRENT MEDICATIONS... vivvelle .05mg patch; medroxyprogersterone begining of the month 05/06/01 PERTINENT PAST HISTORY... Chronic Sinusitis; Varicose veins; 04/11/01 05/06/01 WEIGHT: PATIENT IS NOT . PATIENT IS NOT NURSING. ASSESSMENT: RX REFILL PLAN: DISPOSITION: NO DISPOSITION GIVEN CALL BY YOLI RAY LPN 06/07/2001 04:16PM [id number] ADDENDUM: <> 06/07/2001 04:55PM by UYEN RING CAR CONDITIONER: Per dr motley. Rx for prometrium 200 mg qd # 30 refill x 1 yr called to [facility] [phone] E MOVER Conversion, [facility] - 05/09/2001 12:01 AM CDT Phone Note signed by Margot Motley MD at 05/12/01 0922 Author: Winnie Conversion Service: (none) Author Type: (none) Filed: 01/22/11 0011 Note Time: 05/09/012157 Status: Signed Analytic Manager: Winnie Conversion IMPRESSION: Prometrium refill TO: MARGOT MOTLEY FROM: YONY STRICKLAND RN [id number] 05/09/01 * PROVIDER MESSAGE: ROUTINE * 02:45PM * *WITHIN 4 HOURS * MESSAGE: Recomended per Dr Motley * HOME PHONE:[phone] * that she was to continue with the * CONTACT PHONE:[phone] * Prometrium 200mg one daily for 30 * For another provider to * days. Another provider had * address. # or cell [phone] * origionally prescribed them. She * [phone] * will be out of town until May 30. * PHARMACY: [phone] * Has 17 left. Needing more called * Em Hughes * into pharm today. Can an associate call them into her pharm?_Rx [id number]. Wants enough for the remainder of this [...] CALL BY YONY STRICKLAND RN 05/09/2001 02:38PM [phone] ADDENDUM: <> 05/09/2001 02:58PM by BLANCA NUNEZ TECHNICAL BUYER: PHARMACY CALLED WITH [facility] REQUESTED PROMETRIUM 200MG #[address] EDWARDS. <> 05/17/2001 12:40PM by YOLI VILA RN: pt calling from [facility]. Menses stopped a day ago, she continues [...] ADVISE PT CAN BE REACHED ON CELL [phone], MAY NEED TO DIAL 1 FIRST. <> 05/17/2001 03:54PM by MARGOT ARORA: per dr jesus; pt should continue as advised. no call made to pt. E MOVER Conversion, [facility] - 05/06/2001 12:01 AM CDT Phone Note signed by at 05/06/01 4491 Author: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 Recheck if unimproved. MCKINLEY:[id number] C: DOCUMENT: [id number] T Ángel Hodgson MD - 12/22/1999 12:01 AM CST Progress Notes signed by Ángel Hodgson MD at 02/12/00 0947 Author: Ángel Hodgson MD Service: (none) Author Type: Physician Filed: 01/21/11 1546 Note Time: 12/22/99 0001 Status: Signed Analytic Manager: Ángel Hodgson MD (Physician) IMPRESSION: Symptomatic varicose [...] stripping and a secondary varicose vein dissection. MTS:[id number] C: DOCUMENT: [id number] [facility], [facility] - 12/03/1999 12:01 AM CST Progress Notes signed by at 05/10/016 Author: Winnie Conversion Service: (none) Author Type: (none) Filed: 01/21/11 1529 Note Time: 12/03/99 0001 Status: Signed Analytic Manager: Winnie Martinez IMPRESSION: Multiple musculoskeletal complaints. SUBJECTIVE: [...] crepitus is present. Good range of motion. [employer]semblies [employer] Installations strength is adequate. Mild tenderness over the [...] will followup in two to three months. PRD:[id number] C: DOCUMENT: [id number] SCHEDULED RESOURCE: SON MALLOY MD E MOVER Ángel Hodgson MD - 11/24/1999 12:01 AM CST Progress Notes signed by Ángel Hodgson MD at 02/12/00 0946 Author: Ángel Hodgson MD Service: (none) Author Type: Physician Filed: 01/21/11 1520 Note Time: 11/24/99 0001 Status: Signed Analytic Manager: Ángel Hodgson MD (Physician) IMPRESSION: Symptomatic left [...] have to submit a prior authorization to [facility] for coverage of the surgery if her medical management is unsuccessful. MTS:[id number] C: DOCUMENT: [id number] Clifton Rasmussen MD - 11/14/1999 12:01 AM CST Progress Notes signed by Clifton Rasmussen MD at 11/17/99 1046 Author: Clifton Rasmussen MD Service: (none) Author Type: Physician Filed: 01/21/11 1512 Note Time: 11/14/99 0001 Status: Signed Analytic Manager: Clifton Rasmussen MD (Physician) IMPRESSION: MULTIPLE MUSCULOSKELETAL [...] in one week for another acupuncture session. MPR:[id number] C: DOCUMENT: [id number] E MOVER Aniyah Motley CCC-A - 10/20/1999 12:01 AM CST Progress Notes signed by ERIN Glover at 11/17/99 0823 Author: ERIN Glover Service: (none) Author Type: CERTIFICATE OF CLINICAL COMPETENCY IN AUDIOLOGY Filed: 01/21/11 1448 Note Time: 10/20/99 0001 Status: Signed Analytic Manager: ERIN Glover (Tanning Wheel Filler) IMPRESSION: Bilateral, low-frequency, sensorineural hearing loss, worse in the left ear than the right. SUBJECTIVE: Ms. Sheikh was seen for hearing evaluation on referral from Dr. Margot Mtoley. Patient has not been aware of any [...] the left ear than the right. Speech certified nurses aide thresholds of 0 dB in the right [...] measurements. Since she has not consulted an buzzsaw operator for many years, I suggested that she [...] Audiology in two years. MARGOT MOTLEY MD ERW:[id number] C: DOCUMENT: [id number] Ángel Bolden MD - 10/20/1999 12:01 AM CST Progress Notes signed by Ángel Farias MD at 10/30/99 1128 Author: Ángel Farias MD Service: (none) Author Type: Physician Filed: 01/21/11 1448 Note Time: 10/20/99 0001 Status: Signed Analytic Manager: Ángel Farias MD (Physician) IMPRESSION: Normal flexible sigmoidoscopy examination. SUBJECTIVE: Patient referred for routine flexible sigmoidoscopy examination. She reports no problems. OBJECTIVE: Digital rectal exam was normal. Flexible sigmoidoscopy examination, including retroversion, was performed to 60 cm. No abnormalities were seen. ASSESSMENT: Normal flexible sigmoidoscopy examination. PLAN: Patient should continue to have routine screening consistent with her age and current guidelines. ML:[id number] C: DOCUMENT: [id number] Clifton Pink MD - 10/20/1999 12:01 AM CST Progress Notes signed by Clifton Rasmussen MD at 11/07/99 1200 Author: Clifton Rasmussen MD Service: (none) Author Type: Physician Filed: 01/21/11 1448 Note Time: 10/20/992157 Status: Signed Analytic Manager: Clifton Rasmussen MD (Physician) IMPRESSION: Right metatarsalgia. SUBJECTIVE: CHIEF COMPLAINT: Right metatarsalgia. HISTORY OF PRESENT ILLNESS: Ms. Sheikh is a 54-year-old patient seen in consultation [...] right toes. 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 She does not smoke or drink alcohol [...] in her schedule. CC: MARGOT MOTLEY MD MPR:[id number] C: DOCUMENT: [id number] E MOVER Margot Motley MD - 10/16/1999 12:01 AM CST Progress Notes signed by Margot Motley MD at 10/31/99 1242 Author: Margot Motley MD Service: (none) Author Type: Physician Filed: 01/21/11 1445 Note Time: 10/16/99 0001 Status: Signed Analytic Manager: Margot Motley MD (Physician) IMPRESSION: Pap smear. [...] called Antiton S which was made by [employer]. The patient's colposcopies were all normal. She [...] this poses any danger to her now. MDW:[id number] C: DOCUMENT: [id number] Solomon Shipley - 10/02/1999 12:01 AM CST Progress Notes signed by Solomon Duke at 10/10/99 4467 Author: Solomon Duke Service: (none) Author Type: Resource Filed: 01/21/11 1431 Note Time: 10/02/99 0001 Status: Signed Analytic Manager: Solomon Duke (Resource) IMPRESSION: Heel spur left [...] orthotics, she will contact us for that. SAM:[id number] C: DOCUMENT: [id number] NNA Martinez [facility] - 09/23/1999 12:01 AM CST Progress Notes signed by at 05/10/01 6128 Author: Winnie Martinez Service: (none) Author Type: (none) Filed: 01/21/11 1423 Note Time: 09/23/99 0001 Status: Signed Analytic Manager: Winnie Martinez IMPRESSION: Trochanteric bursitis. SUBJECTIVE: Ramona [...] she is going to be seeing the senior oracle developer today to make some adjustments in her [...] recheck in one month. Corrected Copy: 03/03/00 [facility] PRD:[id number] C: DOCUMENT: [id number] RESOURCE: SON MALLOY MD Solomon Shipley - 09/23/1999 12:01 AM CST Progress Notes signed by Solomon Duke at 10/08/99 1504 Author: Solomon Duke Service: (none) Author Type: Resource Filed: 01/21/11 1421 Note Time: 09/23/99 0001 Status: Signed Analytic Manager: Solomon Duke (Resource) IMPRESSION: Orthotic fitting. SUBJECTIVE: [...] OBJECTIVE: N/A ASSESSMENT: Orthotic fitting. PLAN: N/A SAM:[id number] C: DOCUMENT: [id number] E MOVER Margot Motley MD - 09/22/1999 12:01 AM CST Progress Notes signed by Margot Motley MD at 10/31/99 1236 Author: Margot Motley MD Service: (none) Author Type: Physician Filed: 01/21/11 1421 Note Time: 09/22/99 0001 Status: Signed Analytic Manager: Margot Motley MD (Physician) IMPRESSION: Health maintenance. [...] all been normal. She has been seeing PEDICAB DRIVER for paps and pelvics, but may be [...] Her son is in college. 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 MDW:[id number] C: DOCUMENT: [id number] E MOVER Michelle [facility] - 09/09/1999 12:01 AM CST Progress Notes signed by at 05/10/01 7496 Author: Winnie Martinez Service: (none) Author Type: (none) Filed: 01/21/11 1407 Note Time: 09/09/99 0001 Status: Signed Analytic Manager: Winnie Martinez IMPRESSION: Bilateral trochanteric bursitis. SUBJECTIVE: [...] Aristospan. She will follow up as needed. PRD:[id number] C: DOCUMENT: [id number] SCHEDULED RESOURCE: SON MALLOY MD Solomon Shipley - 08/21/1999 12:01 AM CST Progress Notes signed by Solomon Duke at 09/16/99 1219 Author: Solomon Duke Service: (none) Author Type: Resource Filed: 01/21/11 1345 Note Time: 08/21/99 0001 Status: Signed Analytic Manager: Solomon Duke (Resource) IMPRESSION: Metatarsalgia and heel [...] left heel. PLAN: Please see above. CC: SAM:[id number] C: DOCUMENT: [id number] E MOVER Conversion, [facility] - 08/14/1999 12:01 AM CST Progress Notes signed by at 05/10/01 1838 Author: Winnie Conversion Service: (none) Author Type: (none) Filed: 01/21/11 134 Note Time: 08/14/99 0001 Status: Signed Analytic Manager: Winnie Martinez IMPRESSION: Improved inferior turbinate hypertrophy [...] that this can be used for a intermediate accountant basis and I did write her a prescription for such. She will contact me if she has any difficulties. [facility]:[id number] C: DOCUMENT: [id number] SCHEDULED RESOURCE: JOSE DAVID ARIZA MD E MOVER Conversion, [facility] - 08/13/1999 12:01 AM CST Phone Note signed by at 08/13/992036 Author: [facility] Conversion Service: (none) Author Type: (none) Filed: 01/21/11 1340 Note Time: 08/13/99 0001 Status: Signed Analytic Manager: Winnie Conversion IMPRESSION: Diarrhea-(adult)-nurse guidelines - TREATING PROVIDER: WU CANELA SUBJECTIVE: * HOME PHONE: [phone] * PATIENT COMPLAINS OF... * WORK PHONE: [phone] * Diarrhea Pt. calling with concern aobut [...] concerns Call taken by MARGOT ARVIZU RN [phone] 08/13/1999 08:34 PM ADDENDUM: E MOVER Winnie Martinez - 08/12/1999 12:01 AM CST Progress Notes signed by at 05/10/01 9540 Author: Winnie Conversion Service: (none) Author Type: (none) Filed: 01/21/11 1339 Note Time: 08/12/99 0001 Status: Signed Analytic Manager: Winnie Martinez IMPRESSION: Plantar fasciitis. Metatarsalgia, right foot. Bilateral trochanteric bursitis. 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 Sensation is normal. Testing for Hurd's neuroma is negative. ASSESSMENT: 1. Plantar fasciitis. 2. Metatarsalgia, right foot. 3. Bilateral trochanteric bursitis. PLAN: Her plantar fasciitis symptoms do not warrant injection today, but in the past she has gotten some good benefit from night splints on her left side and so I am going to give her a slip to quill picking machine operator a night splint for her right foot. I also injected her left trochanteric bursa today. She was recently started on Sulindac and we will see how she responds to this. Recheck in 4 weeks. PRD:[id number] C: DOCUMENT: [id number] SCHEDULED RESOURCE: SON MALLOY MD E MOVER Danish Woods MD - 08/07/1999 12:01 AM CST Progress Notes signed by Danish Woods MD at 08/13/99 1013 Author: Danish Woods MD Service: (none) Author Type: Physician Filed: 01/21/11 1334 Note Time: 08/07/99 0001 Status: Signed Analytic Manager: Danish Woods MD (Physician) IMPRESSION: Upper respiratory [...] her scheduled appointment. PLAN: See assessment. CC: WW:[id number] C: DOCUMENT: [id number] E MOVER Conversion, [facility] - 08/01/1999 12:01 AM CDT Phone Note signed by Margot Motley MD at 08/07/99 9234 Author: Winnie Conversion Service: (none) Author Type: (none) Filed: 01/21/11 3622 Note Time: 08/01/99 0001 Status: Signed Analytic Manager: Winnie Martinez IMPRESSION: Reclarification of support stockings TO: MARGOT MOTLEY FROM: SOHA WILCOX RN [phone] * PROVIDER MESSAGE: ROUTINE * 08/01/1999 10:07AM * *WITHIN 4 HOURS * MESSAGE: Patient will check with * HOME PHONE: [phone] * home care products later today. * WORK PHONE: [phone] * No need to call her. * CONTACT PHONE: [phone] * SUBJECTIVE: * CALL PATIENT IF PROBLEM * CHIEF CONCERN... Patient calling; she took rx from Dr Motley to home care [facility] at [facility]. They need rx rewritten or called to [...] GIVEN Call taken by SOHA WILCOX RN [phone] 08/01/1999 10:00 AM ADDENDUM: <> 08/01/1999 11:18AM by UYEN CORONADO CAR CONDITIONER: per dr motley. Hard copy of new rx written as pt directed taken to [facility] E MOVER Margot Motley MD - 07/28/1999 12:01 AM CDT Progress Notes signed by Margot Motley MD at 08/07/99 1241 Author: Margot Motley MD Service: (none) Author Type: Physician Filed: 01/21/11 1323 Note Time: 07/28/99 0001 Status: Signed Analytic Manager: Margot Motley MD (Physician) IMPRESSION: Leg pain, [...] Physical Therapy, may need an imaging study. FAMILIA:[id number] C: DOCUMENT: [id number] Solomon Shipley - 07/25/1999 12:01 AM CDT Progress Notes signed by Solomon Duke at 08/25/99 0903 Author: Solomon Duke Service: (none) Author Type: Resource Filed: 01/21/11 1321 Note Time: 07/25/99 0001 Status: Signed Analytic Manager: Solomon Duke (Resource) IMPRESSION: Metatarsalgia and heel [...] Hopefully this will solve her problem. CC: SAM:[id number] C: DOCUMENT: [id number] Margot Daley MD - 07/21/1999 12:01 AM CDT Progress Notes signed by Margot Motley MD at 06/28/00 1149 Author: Margot Motley MD Service: (none) Author Type: Physician Filed: 01/21/11 1316 Note Time: 07/21/99 0001 Status: Signed Analytic Manager: Margot Motley MD (Physician) IMPRESSION: Viral pharyngitis. [...] hour strep culture is positive. kjl Conversion, [facility] - 07/18/1999 12:01 AM CDT Phone Note signed by at 07/18/99 7589 Author: [facility] Conversion Service: (none) Author Type: (none) Filed: 01/21/11 1314 Note Time: 07/18/99 0001 Status: Signed Analytic Manager: [facility] Conversion IMPRESSION: Sore Throat-(Adult)-Nurse Guidelines TO: MARGOT MOTLEY FROM: MICHAEL SHETTY RN [phone] * PROVIDER MESSAGE: APPT * 07/18/1999 04:52PM * NEEDED * MESSAGE: See notes. Needs appoint. * HOME PHONE: [phone] * SUBJECTIVE: * WORK PHONE: [phone] * CHIEF CONCERN... Sore throat, * CONTACT PHONE: [phone] * sudden onset, denies cough or cold [...] vaporizer Call taken by MICHAEL SHETTY RN [phone] 07/18/1999 04:43 PM ADDENDUM: E MOVER Conversion, [facility] - 07/17/1999 12:01 AM CDT Progress Notes signed by at 05/10/01 2118 Author: Winnie Conversion Service: (none) Author Type: (none) Filed: 01/21/11 1313 Note Time: 07/17/99 0001 Status: Signed Analytic Manager: Winnie Conversion IMPRESSION: Post nasal drip and slight nasal obstruction secondary to moderate inferior turbinate hypertrophy. SUBJECTIVE: Ms. Sheikh is a 53-year-old woman seen for evaluation of post nasal drip and cough and nasal obstruction. She has seen [facility]. Duglas Carbajal [facility]. He has obtained a CT scan on [...] will see her in four weeks. CC: [facility]:[id number] C: DOCUMENT: [id number] SCHEDULED RESOURCE: JOSE DAVID ARIZA MD E MOVER Merrill Villavicencio MD - 07/17/1999 12:01 AM CDT Progress Notes signed by Merrill Villavicencio MD at 07/18/99 1513 Author: Merrill Villavicencio MD Service: (none) Author Type: Physician Filed: 01/21/11 1313 Note Time: 07/17/99 0001 Status: Signed Analytic Manager: Merrill Villavicencio MD (Physician) IMPRESSION: See Assessment. SUBJECTIVE: CHIEF COMPLAINT: Back pain with pain and numbness into legs. HISTORY OF PRESENT ILLNESS: This 53-year-old female presents with back pain. 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 CC: MINH:[id number] C: DOCUMENT: [id number] Solomon Duke - 03/14/1999 12:01 AM CDT Progress Notes signed by Solomon Duke at 03/19/99 1641 Author: Solomon Duke Service: (none) Author Type: Resource Filed: 01/21/11 1111 Note Time: 03/14/99 0001 Status: Signed Analytic Manager: Solomon Duke (Resource) IMPRESSION: Metatarsalgia and heel [...] need further adjustment, to please contact me. SAM:[id number] C: DOCUMENT: [id number] Solomon Duke - 02/24/1999 12:01 AM CDT Progress Notes signed by Solomon Duke at 02/28/99 1348 Author: Solomon Duke Service: (none) Author Type: Resource Filed: 01/21/11 1051 Note Time: 02/24/99 0001 Status: Signed Analytic Manager: Solomon Duke (Resource) IMPRESSION: Plantar fasciitis, metatarsal [...] and we could adjust them if necessary. SAM:[id number] C: DOCUMENT: [id number] Margot Motley MD - 02/24/1999 12:01 AM CDT Progress Notes signed by Margot Motley MD at 03/17/99 1239 Author: Margot Motley MD Service: (none) Author Type: Physician Filed: 01/21/11 1051 Note Time: 02/24/99 0001 Status: Signed Analytic Manager: Margot Motley MD (Physician) IMPRESSION: Chronic rhinitis and nasal obstruction, Menopause symptoms. SUBJECTIVE: CHIEF COMPLAINT: Sinuses and menopause symptoms. This 54-year-old female is going to be out of town for about three months, going to [place] and then across the country. She has [...] needs any refills on her routine medications. MDW:[id number] C: DOCUMENT: [id number] Conversion, [facility] - 02/02/1999 12:01 AM CDT Phone Note signed by Margot Motley MD at 03/17/99 6586 Author: [facility] Conversion Service: (none) Author Type: (none) Filed: 01/21/11 1029 Note Time: 02/02/99 0001 Status: Signed Analytic Manager: Winnie Conversion IMPRESSION: Vomiting-(adult)-nurse guidelines TO: MARGOT MOTLEY FROM: JOHN PALACIOS, RN [phone] * PROVIDER MESSAGE: ROUTINE * 02/02/1999 05:37PM * *WITHIN 4 HOURS * MESSAGE: Call and advise 5/3 am, if * HOME PHONE: [phone] * possible would appreciate call * WORK PHONE: [phone] * between 8:30-9:30 am. * CONTACT PHONE: [phone] * SUBJECTIVE: * Ramona at home * [...] concerns Call taken by JOHN PALACIOS, RN [phone] 02/02/1999 05:16 PM ADDENDUM: <> 02/03/1999 09:38AM [...] 1029 Note Time: 02/02/99 0001 Status: Signed Analytic Manager: Winnie Conversion IMPRESSION: Sinusitis. SUBJECTIVE: Ramona Sheikh [...] 01/21/11 1026 Note Time: 01/30/992157 Status: Signed Analytic Manager: Solomon Duke (Resource) IMPRESSION: Metatarsalgia and heel [...] length orthotic in. 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 I did stress the importance of going [...] will be contacted for a final fitting. SAM:[id number] C: DOCUMENT: [id number] Bony Faria MD - 12/25/1998 12:01 AM CST Progress Notes signed by Bony Faria MD at 03/14/99 0741 Author: Bony Faria MD Service: (none) Author Type: Physician Filed: 01/21/11 0947 Note Time: 12/25/982157 Status: Signed Analytic Manager: Bony Faria MD (Physician) IMPRESSION: Epithelial cyst. [...] 0940 Note Time: 12/19/98 0001 Status: Signed Analytic Manager: Ranjit Hernadez (Resource) IMPRESSION: Chronic sinus congestion. [...] She spends a lot of time in [facility] and [place] out in [facility] and finds tics on herself frequently despite [...] of congestion. LYMErix vaccine was started today. RT:[id number] C: DOCUMENT: [id number] Ned Brunson MD - 12/17/1998 12:01 AM CST Progress Notes signed by Ned Townsend MD at 01/17/99 1817 Author: Ned Townsend MD Service: (none) Author Type: Physician Filed: 01/21/11 0937 Note Time: 12/17/982157 Status: Signed Analytic Manager: Ned Townsend MD (Physician) IMPRESSION: 1. Left [...] a day. She has formal orthotics through [employer] that she brings in with her [...] about 8 to 12 weeks. [id number] Conversion, [facility] - 11/22/1998 12:01 AM CST Phone Note signed by at 11/22/98 1508 Author: [facility] Conversion Service: (none) Author Type: (none) Filed: 01/21/11 0910 Note Time: 11/22/982157 Status: Signed Analytic Manager: Winnie Conversion TO: RANJIT HERNADEZ FROM: PIERRE MADDOX [id number] 11/22/98 * PROVIDER MESSAGE: ROUTINE * 03:07PM * *WITHIN 4 HOURS * MESSAGE: WAS TREATED WITH CEFTIN FOR * HOME PHONE:[phone] * SINUS INF. FROM . END OF OCTOBER. * WORK PHONE:[phone] * HAS SAME SX. BACK. WANTS TO TRY * CONTACT PHONE:[phone] * DIFFERENT RX. AUGMENTEN DIDNT WORK * WORK UNTIL 3:45 [phone] * WELL EITHER.__ALSO WANTS RX * HOME AFTER 4:15 CIP * QUIFENISIN.SAW Jessica HERNADEZ FOR F/U IN * PHARMACY: [phone] * NOV. * MAMADOU_ANITA LONG * SUBJECTIVE: ALLERGIES/SENSITIVITIES... NKA 10/03/98 CURRENT MEDICATIONS... Estrogen patch, naproxsyn, vancinase nasal spray, benadryl 10/03/98 PERTINENT PAST HISTORY... Chronic Sinusitis 10/03/98 WEIGHT: PATIENT IS NOT . PATIENT IS NOT NURSING. ASSESSMENT: PLAN: DISPOSITION: NO DISPOSITION GIVEN CALL BY PIERRE MADDOX 11/22/1998 02:55PM [id number] ADDENDUM: <> 11/22/1998 04:43PM by PIERRE MADDOX: RX ENTEX LA BID PRN #[id number] NO REFILLS CALLED TO PHARMACY PER Jessica HERNADEZ. PHARMACY TOLD WE TRIED TO GET HOLD OF PT. MANY TIMES BUT WASNT HOME TO DISCUSS SINUS SX. CAN CALL PHONE CARE TO DISCUSS SX AND RX TO DECIDE ABOUT SINUS INF. E MOVER Conversion, [facility] - 11/22/1998 12:01 AM CST Phone Note signed by at 11/22/98 6580 Author: Winnie Conversion Service: (none) Author Type: (none) Filed: 01/21/11 0910 Note Time: 11/22/98 0001 Status: Signed Analytic Manager: Winnie Conversion IMPRESSION: Sinus congestion-(adult)-nurse guidelines - TREATING PROVIDER: WU CANELA - PHARMACY: [phone] [facility] * HOME PHONE: [phone] * SUBJECTIVE: * WORK PHONE: [phone] * PATIENT COMPLAINS OF... Sinus * CONTACT PHONE: [phone] * congestion, for 7 or more * [...] Call prescription to pharmacy as directed by [facility] Physician Standing Orders -Improve room humidity with [...] medication MISC COMMENTS... Rx. called to pharmacistJulio Cesra. Call taken by HONEY COX RN [phone] 11/22/1998 06:38 PM ADDENDUM: <> 11/26/1998 02:27PM by RANJIT ESPINO RN [phone]: Nurse callback. Patient still taking medication, now c/o discharge from nose and her ear is crackling. Taking Advil w/ some relief. Feels sx have improved slightly since starting medication. Reviewed Sinus Congestion Home Cares, patient will continue with recommended measures and medication. Will call if sx worsen or continue after medication is finished. Nurse callback done by Beatrice Ocampo RN. E MOVER Ranjit Hernadez - 11/05/1998 12:01 AM CST Progress Notes signed by Ranjit Hernadez at 06/13/99 1252 Author: Ranjit Hernadez Service: (none) Author Type: Resource Filed: 01/21/11 0849 Note Time: 11/05/98 0001 Status: Signed Analytic Manager: Ranjit Hernadez (Resource) IMPRESSION: Plantar fasciitis. Metatarsalgia. Follow up sinusitis. SUBJECTIVE: This 53 year-old female comes in today for follow up of sinusitis. She was seen in Urgent Care and was treated with Ceftin. This is after she had been treated in [place] with Augmentin. She reports she no longer has any sinus pain. She has been afebrile since taking the antibiotic. She now has minimal, clear nasal discharge. She would like to also follow up on metatarsalgia and plantar fasciitis. She has been followed by Dr. Motley, her primary provider. She has tried anti-inflammatories and custom orthotics and has had a steroid injection from her aovcayy-kf-ups who is an orthopaedic surgeon. She reports [...] orthopaedics was given. cc: Margot Motley M.D. [id number]/[id number]/ Michelle, [facility] - 10/21/1998 12:01 AM CST Progress Notes signed by at 05/10/012036 Author: Imr Conversion Service: (none) Author Type: (none) Filed: 01/21/11 0831 Note Time: 10/21/98 0001 Status: Signed Analytic Manager: Winnie Martinez IMPRESSION: Persistent sinusitis. SUBJECTIVE: Ramona Sheikh is a 53-year-old female who has had nasal congestion for the last month. She was seen in [place] September 21 for sinusitis and was treated [...] 98.9. P: 72. R: 20. BP: 138/82. Gerxo-nfy-hknx-old female in no acute distress. Bilateral eyes: [...] Entex LA 1 p.o. b.i.d. 3. Continue Naper nasal saline solution. 4. Continue Vancenase. 5. Continue humidifier at night. 6. The patient will follow up with Dr. Motley in 10 to 14 days. stshelli SCHEDULED RESOURCE: [facility] E MOVER Conversion, [facility] - 10/03/1998 12:01 AM CST Phone Note signed by at 10/03/98 9908 Author: Winnie Conversion Service: (none) Author Type: (none) Filed: 01/21/11 0814 Note Time: 10/03/98 0001 Status: Signed Analytic Manager: Winnie Conversion IMPRESSION: req refill TO: MARGOT MOTLEY FROM: PERFECTO VILLAVICENCIO RN [phone] * PROVIDER MESSAGE: ROUTINE * 10/03/1998 03:51PM * *WITHIN 4 HOURS * MESSAGE: Pt req refill for Vacinase * HOME PHONE: [phone] * nasal spray. 84mcg, 2 sprays into * WORK PHONE: [phone] * each nostril daily. Is aware MD * CONTACT PHONE: [phone] * out today wondering if another MD * pt * can call refill in. * PHARMACY: [phone] * SUBJECTIVE: * snyders * ALLERGIES/SENSITIVITIES... NKA 10/03/98 CURRENT MEDICATIONS... Estrogen patch, naproxsyn, vancinase nasal spray, benadryl 10/03/98 PERTINENT PAST HISTORY... Chronic Sinusitis 10/03/98 WEIGHT: Not Available PATIENT IS NOT ; PATIENT IS NOT NURSING; ASSESSMENT: req refill PLAN: DISPOSITION: NO DISPOSITION GIVEN Call taken by PERFECTO VILLAVICENCIO RN [phone] 10/03/1998 03:47 PM ADDENDUM: <> 10/07/1998 08:22AM by RANJIT MCFARLAND: per dr. jesus i called in a script for a refill of vancenase aq ds w/ no refills pt. was informed. E MOVER Bony Faria MD - 09/17/1998 12:01 AM CST Progress Notes signed by Bony Faria MD at 12/26/98 1327 Author: Bony Faria MD Service: (none) Author Type: Physician Filed: 01/21/11 0758 Note Time: 09/17/98 0001 Status: Signed Analytic Manager: Bony Faria MD (Physician) IMPRESSION: Acne, chronic [...] to topical medications and antibiotic therapy. sts E MOVER Margot Motley MD - 08/01/1998 12:01 AM CST Progress Notes signed by Margot Motley MD at 08/13/98 1323 Author: Margto Motley MD Service: (none) Author Type: Physician Filed: 01/21/11 0711 Note Time: 08/01/98 0001 Status: Signed Analytic Manager: Margot Motley MD (Physician) IMPRESSION: Metatarsalgia; Plantar fasciitis, improved; Back pain, improved. SUBJECTIVE: CHIEF COMPLAINT: Follow-up on foot and back pain. This 53-year-old female is here for follow-up. She notes that her plantar fasciitis is much better. She got a steroid injection from her nlhwkux-rr-wqg, an orthopedic surgeon, and that has essentially [...] has custom orthotics for the metatarsalgia. sja E MOVER Reza Molina MD - 06/19/1998 12:01 AM CDT Progress Notes signed by Reza Molina MD at 07/03/98 1459 Author: Reza Molina MD Service: (none) Author Type: Physician Filed: 01/21/11 0628 Note Time: 06/19/98 0001 Status: Signed Analytic Manager: Reza Molina MD (Physician) IMPRESSION: Postop check [...] 0619 Note Time: 06/09/98 0001 Status: Signed Analytic Manager: Winnie Martinez IMPRESSION: 1. Bilateral conjunctivitis, probably [...] change in her vision or eye pain. [facility] Reza Muro MD - 05/17/1998 12:01 AM CDT Progress Notes signed by Reaz Molina MD at 06/05/98 9962 Author: Reza Molina MD Service: (none) Author Type: Physician Filed: 01/21/11 0558 Note Time: 05/17/982157 Status: Signed Analytic Manager: Reza Molina MD (Physician) IMPRESSION: Postop check [...] signed by Margot Blanco PT at 05/29/98 5787 Author: Margot Blanco PT Service: (none) Author Type: Physical Therapist Filed: 01/21/11 0553 Note Time: 05/13/98 0001 Status: Signed Analytic Manager: Margot Blanco PT (Physical Therapist) IMPRESSION: Pain [...] Margot Motley MD, Family Practice sjl Conversion, [facility] - 04/18/1998 12:01 AM CDT Phone Note signed by at 04/18/98 1500 Author: Winnie Conversion Service: (none) Author Type: (none) Filed: 01/21/11 0532 Note Time: 04/18/98 0001 Status: Signed Analytic Manager: Winnie Conversion IMPRESSION: heel pain - request fpr PT TO: MARGOT MOTLEY FROM: LUDY REEDER, RN [phone] * PROVIDER MESSAGE: RETURN * 04/18/1998 03:00PM * CALL REQUESTED * MESSAGE: Please refer to another MD * HOME PHONE: [phone] * if Dr Motley is still unavailble * WORK PHONE: [phone] * on 04/22 - Is going OOT tomorrow * CONTACT PHONE: [phone] * and will be back on 04/22 [...] GIVEN Call taken by LUDY REEDER, RN [phone] 04/18/1998 02:42 PM ADDENDUM: E MOVER Margot Motley MD - 04/11/1998 12:01 AM CDT Progress Notes signed by Margot Motley MD at 05/07/98 0758 Author: Margot Motley MD Service: (none) Author Type: Physician Filed: 01/21/11 0525 Note Time: 04/11/98 0001 Status: Signed Analytic Manager: Margot Motley MD (Physician) IMPRESSION: Preop exam. [...] 0508 Note Time: 03/21/98 0001 Status: Signed Analytic Manager: Margot Motley MD (Physician) IMPRESSION: Seborrheic keratoses. [...] 0502 Note Time: 03/15/98 0001 Status: Signed Analytic Manager: Reza Molina MD (Physician) IMPRESSION: Bilateral disabling [...] an outpatient under general anesthesia[facility] Danish Woods MD - 03/12/1998 12:01 AM CDT Progress Notes signed by Danish Woods MD at 03/28/98 1735 Author: Danish Woods MD Service: (none) Author Type: Physician Filed: 01/21/11 0459 Note Time: 03/12/98 0001 Status: Signed Analytic Manager: Danish Woods MD (Physician) IMPRESSION: Heel pain. [...] 0442 Note Time: 02/21/98 0001 Status: Signed Analytic Manager: Margot Motley MD (Physician) IMPRESSION: Macromastia. SUBJECTIVE: CHIEF COMPLAINT: Discuss breast reduction. This is a 52 year old female who is considering breast reduction. She has seen Dr. Marcus, an outside plastic surgeon. She would like [...] 0000 Note Time: 12/17/97 0001 Status: Signed Analytic Manager: Margot Motley MD (Physician) PHONE CALL: Quita [...] 0341 Note Time: 12/17/97 0001 Status: Signed Analytic Manager: Ranjit Hernadez (Resource) IMPRESSION: Preoperative examination. SUBJECTIVE: [...] N/A. ASSESSMENT: Preoperative examination. PLAN: N/A. jfl E MOVER Margot Motley MD - 11/29/1997 12:01 AM CST Progress Notes signed by Margot Motley MD at 12/05/97 1641 Author: Margot Motley MD Service: (none) Author Type: Physician Filed: 01/21/11 0325 Note Time: 11/29/97 0001 Status: Signed Analytic Manager: Margot Motley MD (Physician) IMPRESSION: Radicular pain. [...] need orthopedic or physical medicine evaluation. lkb E MOVER Jayda Davenport PT - 09/05/1997 12:01 AM CST Progress Notes signed by Jayda Davenport PT at 10/03/97 0750 Author: Jayda Davenport PT Service: (none) Author Type: Physical Therapist Filed: 01/21/11 0208 Note Time: 09/05/972157 Status: Signed Analytic Manager: Jayda Davenport PT (Physical Therapist) IMPRESSION: Cervical [...] range of motion revealed flexion to be yjtf-jh-uxnop with a strong stretch felt along the [...] Emeli Daniel PTA. cc: Margot Motley M.D., [facility] E MOVER Joellen Carter MD - 09/03/1997 12:01 AM CST Progress Notes signed by Joellen Carter DO at 11/08/97 0928 Author: Joellen Carter DO Service: (none) Author Type: Physician Filed: 01/21/11 0206 Note Time: 09/03/97 0001 Status: Signed Analytic Manager: Joellen Carter DO (Physician) IMPRESSION: Gastroenteritis. SUBJECTIVE: [...] unless vomiting and diarrhea have not ceased. [facility] E MOVER Conversion, [facility] - 09/02/1997 12:01 AM CST Phone Note signed by at 09/02/97 4199 Author: [facility] Conversion Service: (none) Author Type: (none) Filed: 01/21/11 0205 Note Time: 09/02/97 0001 Status: Signed Analytic Manager: Winnie Conversion IMPRESSION: Vomiting-(adult)-nurse guidelines SUBJECTIVE: PATIENT COMPLAINS OF... * HOME PHONE: [phone] * Vomiting, -Duration < 24 * WORK PHONE: [phone] * hours -Mild cramps Pt calling has [...] DECLINED CALLBACK Call taken by SABRINA GUZMÁN [phone] 09/02/1997 09:43 AM ADDENDUM: E MOVER Margot Motley MD - 07/24/1997 12:01 AM CDT Progress Notes signed by Margot Motley MD at 08/17/97 8278 Author: Margot Motley MD Service: (none) Author Type: Physician Filed: 01/21/11 0129 Note Time: 07/24/97 0001 Status: Signed Analytic Manager: Margot Motley MD (Physician) IMPRESSION: Metatarsalgia. Cervical [...] Physical Therapy for the neck strain. donnell E MOVER Conversion, [facility] - 07/08/1997 12:01 AM CDT Phone Note signed by at 07/08/97 4424 Author: Winnie Conversion Service: (none) Author Type: (none) Filed: 01/21/11 0116 Note Time: 07/08/97 0001 Status: Signed Analytic Manager: Winnie Conversion IMPRESSION: Sinus congestion-(adult)-nurse guidelines - TREATING PROVIDER: REZA CRUZ - PHARMACY: [phone] [facility] - * HOME PHONE: [phone] * [place] * WORK PHONE: [phone] * SUBJECTIVE: PATIENT COMPLAINS OF... On Amoxicillin [...] concerns. Call taken by EVELIO JAVIER RN [phone] 07/08/1997 10:50 AM ADDENDUM: E MOVER Conversion, [facility] - 07/04/1997 12:01 AM CDT Phone Note signed by at 07/04/97 0482 Author: Winnie Conversion Service: (none) Author Type: (none) Filed: 01/21/11 0113 Note Time: 07/04/97 0001 Status: Signed Analytic Manager: Winnie Martinez IMPRESSION: Sinus congestion-(adult)-nurse guidelines TO: MARGOT MOTLEY FROM: SABRINA GUZMÁN [phone] 07/04/1997 * PROVIDER MESSAGE: RETURN * 05:20PM * CALL REQUESTED * MESSAGE: See note and call and * HOME PHONE: [phone] * advise pt, wants to talk about * WORK PHONE: [phone] * her bone pain also and a possible * CONTACT PHONE: [phone] * medication for it she didn't want * can try at work * to go into detail. She is only * otherwise leave a * able to make an appt at 4:15pm or * message on her * after. Refusing to go into . * answering machine. * SUBJECTIVE: * PHARMACY: [phone] * CHIEF CONCERN... Sinus * Snyders- * [...] dry air Call taken by SABRINA GUZMÁN [phone] 07/04/1997 05:06 PM ADDENDUM: E MOVER Danish Woods MD - 02/15/1997 12:01 AM CDT Progress Notes signed by Danish Woods MD at 02/17/97 9180 Author: Danish Woods MD Service: (none) Author Type: Physician Filed: 01/20/11 2538 Note Time: 02/15/97 0001 Status: Signed Analytic Manager: Danish Woods MD (Physician) IMPRESSION: Gastroenteritis. SUBJECTIVE: [...] CDT Phone Note signed by at 02/14/97 2334 Author: Winnie Martinez Service: (none) Author Type: (none) Filed: 01/20/11 6523 Note Time: 02/14/97 0001 Status: Signed Analytic Manager: Winnie Martinez IMPRESSION: Diarrhea-(adult)-nurse guidelines SUBJECTIVE: PATIENT COMPLAINS OF... * HOME PHONE: [phone] * Diarrhea Pt feels she ate * WORK PHONE: [phone] * some bad chicken salad * CONTACT PHONE: [phone] * yesterday. [place] nauseous late * ramona * yesterday afternoon, [...] concerns Call taken by BLADE BURNS RN [phone] 02/14/1997 03:01 PM ADDENDUM: <> 02/14/1997 05:57PM by SOHA WILCOX RN: patient will go to urgent care tomorrow, if diarrhea persists. E MOVER Conversion, [facility] - 02/14/1997 12:01 AM CDT Phone Note signed by at 02/14/97 0956 Author: Winnie Conversion Service: (none) Author Type: (none) Filed: 01/20/11 2329 Note Time: 02/14/97 0001 Status: Signed Analytic Manager: Winnie Conversion IMPRESSION: Diarrhea-(adult)-nurse guidelines SUBJECTIVE: PATIENT COMPLAINS OF... Diarrhea * HOME PHONE:[phone] * -Mild cramping relieved by bowel * WORK PHONE:[phone] * movements -Symptoms less than * CONTACT PHONE:[phone] * 72 hours Nauseated last noc and [...] CALL BY YOLI SOLIS RN 02/14/1997 09:15AM [phone] ADDENDUM: <> 02/14/1997 05:30PM by CAMERON REEDER: [...] she is going to Urgent Care at [place] today. E MOVER Conversion, [facility] - 02/13/1997 12:01 AM CDT Phone Note signed by at 02/13/97 4231 Author: Imr Conversion Service: (none) Author Type: (none) Filed: 01/20/11 2322 Note Time: 02/13/97 0001 Status: Signed Analytic Manager: Winnie Martinez IMPRESSION: Sinus Medication causing nausea - PHARMACY: [phone] Mam[facility] SUBJECTIVE: * HOME PHONE: [phone] * PATIENT COMPLAINS OF... Pt * WORK PHONE: [phone] * claling has been on sulfa for [...] questions or concerns or if nausea persists. [facility]... Rx called in to pharmacy at 6:55 pm. Call taken by LILLIANA WAHL RN [phone] 02/13/1997 07:03 PM ADDENDUM: E MOVER Conversion, [facility] - 02/09/1997 12:01 AM CDT Phone Note signed by at 02/09/97 9297 Author: Winnie Conversion Service: (none) Author Type: (none) Filed: 01/20/11 2326 Note Time: 02/09/97 0001 Status: Signed Analytic Manager: Winnie Conversion IMPRESSION: Sinus congestion-(adult)-nurse guidelines - PHARMACY: [phone] ydmikael SUBJECTIVE: * HOME PHONE: [phone] * PATIENT COMPLAINS OF... Sinus * WORK PHONE: [phone] * congestion with tooth pain. * CONTACT PHONE: [phone] * Sinus congestion with fever * ramona [...] Call prescription to pharmacy as directed by [facility] Physician Standing Orders -Improve room humidity with [...] week Call taken by GIULIANO ADORNO RN [phone] 02/09/1997 03:08 PM ADDENDUM: <> 02/11/1997 05:00PM by DINORAH SOW: Pt states atbx are helping. About 50% improvement. Afebrile. Homecare/ callback suggestions reviewed. Will call back if sxs persist or worsen . E MOVER Clyde Echols DPM - 01/11/1997 12:01 AM CDT Progress Notes signed by Clyde Echols DPM at 01/18/97 3881 Author: Clyde Echols DPM Service: (none) Author Type: Physician Filed: 01/20/11 8782 Note Time: 01/11/97 0001 Status: Signed Analytic Manager: Clyde Echols DPM (Physician) IMPRESSION: Metatarsalgia responsive to control of foot function. SUBJECTIVE: Quita Abrams presents to be casted for orthotics. She had a favorable response to the strapping applied last visit. OBJECTIVE: N/A. ASSESSMENT: Metatarsalgia responsive to control of foot function. PLAN: Patient was casted at this time. She will be contacted when her orthotics are ready for dispensing. stq Michelle, [facility] - 01/09/1997 12:01 AM CDT Phone Note signed by at 01/09/97 1012 Author: Winnie Martinez Service: (none) Author Type: (none) Filed: 01/20/11 9235 Note Time: 01/09/97 0001 Status: Signed Analytic Manager: Winnie Martinez IMPRESSION: Irritation from deodorant, Sinus congestion-(adult)-nurse guidelines - PHARMACY: [phone] [facility] [place] * HOME PHONE: [phone] * SUBJECTIVE: * WORK PHONE: [phone] * PROBLEM 1: * CONTACT PHONE: [phone] * PATIENT COMPLAINS OF... * Ramona * Asking for a deodorant recommendation that do not contain aluminum. Has tried a couple from [employer] and has problem with breaking out in [...] PROBLEM 1: RECOMMENDED THE FOLLOWING... Suggested the [employer] [facility], also transferred pt to Derm. at [facility] to ask the LCT there for suggestions. PROBLEM 2: STANDING ORDERS IMPLEMENTED... Septra DS, 1 tablet bid x 10 days (o RECOMMENDED THE FOLLOWING... Referenced guideline Sinus congestion-(adult)-nurse guidelines. Call prescription to pharmacy as directed by [facility] Physician Standing Orders -Improve room humidity with [...] -Symptoms not resolved after completion of medication [facility]... Wk # Ext. [phone] Call taken by YOLI SOLIS RN [phone] 01/09/1997 10:05 AM ADDENDUM: <01/14/1997 05:24PM by DINORAH SOW: 1 PHONE WAS BUSY. <01/14/1997 07:26PM by DINORAH SOW: left msg w/adult LEFT MESSAGE. <01/15/1997 07:12PM by DINORAH SOW: left msg w/teen LEFT MESSAGE. <01/15/1997 07:58PM by LILLIANA WAHL RN: Calling back. Feeling somewhat better. Will continue with medication and call back prn. E MOVER Jayda Davenport PT - 12/29/1996 12:01 AM CST Progress Notes signed by Jayda Davenport PT at 01/09/97 1549 Author: Jayda Davenport PT Service: (none) Author Type: Physical Therapist Filed: 01/20/11 8442 Note Time: 12/29/96 0001 Status: Signed Analytic Manager: Jayda Davenport PT (Physical Therapist) IMPRESSION: Early [...] signed by Margot Motley MD at 12/16/96 1834 Author: Margot Motley MD Service: (none) Author Type: Physician Filed: 01/20/11 2239 Note Time: 12/07/96 0001 Status: Signed Analytic Manager: Margot Motley MD (Physician) IMPRESSION: Carpal tunnel [...] a physical when that is due. sja E MOVER Clyde Echols DPM - 11/28/1996 12:01 AM CST Progress Notes signed by Clyde Echols DPM at 12/05/96 0823 Author: Clyde Echols DPM Service: (none) Author Type: Physician Filed: 01/20/11 2232 Note Time: 11/28/96 0001 Status: Signed Analytic Manager: Clyde Echols DPM (Physician) IMPRESSION: Metatarsalgia, asymptomatic [...] toe a number of years ago at [facility] [employer] [facility] [employer]. Although she has not had a recurrence [...] is going to have her records from [facility] sent so that we can determine what type of a nail procedure she had. 3. The patient will call to be casted if she responds favorably, return for follow-up if she does not. std E MOVER Margot Larkin MD - 11/19/1996 12:01 AM CST Progress Notes signed by Margot Larkin MD at 02/08/97 2749 Author: Margot Larkin MD Service: (none) Author Type: Physician Filed: 01/20/11 2225 Note Time: 11/19/96 0001 Status: Signed Analytic Manager: Margot Larkin MD (Physician) IMPRESSION: Early radiculopathy [...] and biking. She also had a complete wax pot tender exam last week. OBJECTIVE: Overweight, deconditioned female [...] required physical therapy in the past. cbs E MOVER documented in this encounter Plan of Treatment Not on filedocumented as of this encounter Procedures Procedure Name Priority Date/Time Associated Comments Diagnosis HIV ANTIBODY Routine 10/24/2001 12:20 Results for this PM HOUSE MOVER procedure are i n the results section. THYROID STIMULATING Routine 10/24/2001 12:20 Resu lts for this HORMONE PM HOUSE MOVER procedure are i n the results section. LIPID PANEL AND DIRECT Routine 10/24/2001 12:20 R esults for this LDL(IF NEEDED) PM HOUSE MOVER procedure are in the results section. HEMOGLOBIN, BLOOD Routine 10/24/2001 12:20 Result s for this PM HOUSE MOVER procedure are i n the results section. SEXUALLY TRANSMITTED Routine 10/24/2001 11:22 Res ults for this DISEASE PROBE AM HOUSE MOVER procedure are in the results section. ANATOMICAL PATH-C Routine 10/24/2001 8:57 Results for this AM HOUSE MOVER procedure are i n the results section. US SONOHYSTEROGRAM Routine 10/03/2001 12:45 Resul ts for this IMAGING PM HOUSE MOVER procedure are i n the results section. MM MAMMOGRAM DIAG BILAT Routine 09/26/2001 9:30 R esults for this AM HOUSE MOVER procedure are i n the results section. STREP GROUP A ANTIGEN Routine 09/10/2001 10:28 Re sults for this TEST AM HOUSE MOVER procedure are i n the results section. BETA STREP FOLLOWUP Routine 09/10/2001 10:28 Resu lts for this AM HOUSE MOVER procedure are i n the results section. FSH Routine 08/07/2001 11:37 Results for this AM HOUSE MOVER procedure are i n the results section. SURGICAL PATH, PARK Routine 08/04/2001 2:21 Resul ts for this [place] PM HOUSE MOVER procedure are i n the results section. [...] are in the results section. WET PREP [place] Routine 04/05/2001 11:19 R esults for [...] i n the results section. WET PREP [place]OL[place] Routine 06/09/2000 7:51 Re sults for [...] Routine 12/27/1999 1:05 Results for this PM HOUSE MOVER procedure are i n the results section. STOOL CULTURE Routine 12/27/1999 1:05 Results for this PM HOUSE MOVER procedure are i n the results section. XR UNILATERAL VENOUS Routine 12/03/1999 3:00 Resu lts for this MAPPING PM HOUSE MOVER procedure are i n the results section. ANATOMICAL PATH-C Routine 10/16/1999 5:45 Results for this AM HOUSE MOVER procedure are i n the results section. GLUCOSE Routine 09/22/1999 10:19 Results for this AM HOUSE MOVER procedure are i n the results section. LIPID PANEL AND DIRECT Routine 09/22/1999 10:19 R esults for this LDL(IF NEEDED) AM HOUSE MOVER procedure are in the results section. STREP [...] 5:10 Resul ts for this HORMONE PM HOUSE MOVER procedure are i n the results section. HEMOGLOBIN, BLOOD Routine 12/17/1997 5:10 Results for this PM HOUSE MOVER procedure are i n the results section. SODIUM Routine 12/17/1997 5:10 Results for this PM HOUSE MOVER procedure are i n the results section. POTASSIUM Routine 12/17/1997 5:10 Results for this PM HOUSE MOVER procedure are i n the results section. HDL CHOLESTEROL Routine 12/17/1997 5:10 Results f or this PM HOUSE MOVER procedure are i n the results section. CHOLESTEROL (TOTAL) Routine 12/17/1997 5:10 Resul ts for this PM HOUSE MOVER procedure are i n the results section. MR CERVICAL SPINE WO IV Routine 12/11/1997 4:45 R esults for this CONT PM HOUSE MOVER procedure are i n the results section. MM MAMMOGRAM DIAG BILAT Routine 01/09/1997 7:20 R esults for this W CAD PM CDT procedure are i n the results section. documented in this encounter Results (ABNORMAL) Lipid Panel and Direct LDL(If Needed) (10/24/2001 12:20 PM HOUSE MOVER) [facility] gist Method Time Signature Length Of Fast [...] / / Volume Laterality 10/24/2001 12:20 PM HOUSE MOVER Margot Motley MD LAB_1 Performing Organization Address [facility] Phon e Number HP CONVERSION HIV Antibody (10/24/2001 12:20 PM HOUSE MOVER) athologist Signature HIV 1/HIV 2 Non Reac Non Reac HP CONVERSION Specimen (Source) Anatomical Collection Method Collection Time Re ceived Time Location / / Volume Laterality 10/24/2001 12:20 PM HOUSE MOVER Margot Motley MD LAB_1 Performing Organization Address [facility] Code Phon e Number HP CONVERSION Thyroid Stimulating Hormone (10/24/2001 12:20 PM HOUSE MOVER) athologist Signature Thyroid 1.28 0.20 - HP CONVERSION Stimulating 5.50 Hormone uIU/mL Specimen (Source) Anatomical Collection Method Collection Time Re ceived Time Location / / Volume Laterality 10/24/2001 12:20 PM HOUSE MOVER Margot Motley MD LAB_1 Performing Organization Address [facility] Phon e Number HP CONVERSION Hemoglobin, Blood (10/24/2001 12:20 PM HOUSE MOVER) athologist [facility] Hemoglobin 15.1 11.8 - 15.5 HP CONVERSION gm/dL Specimen (Source) Anatomical Collection Method Collection Time Re ceived Time Location / / Volume Laterality 10/24/2001 12:20 PM HOUSE MOVER Margot Motley MD LAB_1 Performing Organization Address [facility] Phon e Number HP CONVERSION Sexually Transmitted Disease Probe (10/24/2001 11:22 AM HOUSE MOVER) [facility] Method Time Signature Sexually SEE TEXT HP CONVERSION Transmitted Disease Probe Comment: Patient: KORI RAMONA Carmen Sexually Trans Disease Probe @ ?Collected: ??[id number] ??[id number] Source: ENDOCERV ?Processed: ?1122 Final Report ------ ?1632 No Chlamydia trachomatis by amplified DN A probe. No Neisseria gonorrhoeae by DNA probe. @ = Sexually Trans Disease Probe Perform ed at ??[address] [facility] ?[place] [address] Specimen (Source) Anatomical Collection Method Collection Time Re ceived Time Location / / Volume Laterality 10/24/2001 11:22 AM HOUSE MOVER Margot Motley MD LAB_1 Performing Organization Address City/State/ZIP Code Phon e Number HP CONVERSION Anatomical Path-C (10/24/2001 8:57 AM HOUSE MOVER) P athologist Signature PAP Smear SEE TEXT No normal HP CONVERSION range Comment: Patient: RAMONA SHEIKH ? CERVICAL CYTOLOGY REPORT Pathology # ??[id number] ?Date Obtained: ? Date Received: LMP: CLINICAL HIST ? NRML PAP 10-16-99, 03 396 CERVICAL SMEAR SPECIMEN ADEQUACY: ?? Satisfactory. ENDOCERVICAL CELLS: ??Absent; patient is post-menopausal. CYTOLOGIC IMPRESSION: Within Normal Limits (Negative). Verified 10/31/01 by: ??LBM ?(electronic signature) Specimen (Source) Anatomical Collection Method Collection Time Re ceived Time Location / / Volume Laterality 10/24/2001 8:57 AM HOUSE MOVER Margot Motley MD LAB_1 Performing Organization Address City/State/ZIP Code Phon e Number HP CONVERSION US [facility] (10/03/2001 12:45 PM HOUSE MOVER) Anatomical Region Laterality Modality Pelvis Other Specimen (Source) Anatomical Location Collection Method / Collectio n Time Received Time / Laterality Volume Narrative 10/03/2001 12:45 PM HOUSE MOVER CLINICAL DATA: ?SONOH. DYSFUNCTIONAL UTERINE BLEED ING. [...] OTH ERWISE NEGATIVE, WITH NO ?SUBMUCOSAL LEIOMYOMA. ?[facility] TECH-ID : ? K TRANS-ID: [...] IS OTHERWISE NEGATIVE, WITH NO SUBMUCOSAL LEIOMYOMA. [facility] TECH-ID : TMK TRANS-ID: EDR Lakhwinder Cobb MD RAD US MM Mammogram Diag Bilat (09/26/2001 9:30 AM HOUSE MOVER) Anatomical Region Laterality Modality Breast Bilateral Mammography Specimen (Source) Anatomical Location Collection Method / Collectio n Time Received Time / Laterality Volume Impressions 09/26/2001 9:30 AM HOUSE MOVER : ?? NO MAMMOGRAPHIC EVIDENCE OF MALIGNAN [...] ? MMO TRANS-ID: Narrative 09/26/2001 9:30 AM HOUSE MOVER SEVERITY: 1 CLINICAL DATA: ?ROUTINE MAMMO Procedure [...] Group A Antigen Test (09/10/2001 10:28 AM HOUSE MOVER) Analysis Performed At Patho logist Time Signature Strep Group A Negative Negative HP CONVERSION Antigen Test Comment: Culture to follow. Specimen (Source) Anatomical Collection Method Collection Time Re ceived Time Location / / Volume Laterality 09/10/2001 10:28 AM HOUSE MOVER Solomon Alexis MD LAB_1 Performing Organization Address City/State/ZIP Code Phon e Number HP CONVERSION Beta Strep Followup (09/10/2001 10:28 AM HOUSE MOVER) athologist Signature Strep Screen SEE TEXT HP CONVERSION Comment: Patient: RAMONA SHEIKH Rapid Strep Follow up Culture @ ? Collected: ??[id number] ??[id number] Source: Throat ?Processed: ??[id number] ??[id number] Final Report ------ ?[id number] ??[id number] No beta hemolytic Strep group A isolated . @ = Rapid F/U Cult Performed at [address], [place] ?[address] Specimen (Source) Anatomical Collection Method Collection Time Re ceived Time Location / / Volume Laterality 09/10/2001 10:28 AM HOUSE MOVER Solomon Alexis MD LAB_1 Performing Organization Address City/State/ZIP Code Phon e Number HP CONVERSION [facility]SH (08/07/2001 11:37 AM HOUSE MOVER) athologist Signature Follicle 28.4 mIU/mL HP CONVERSION Stimulating Hormone Comment: ? FSH Value(mIU/mL) Normally Menstruating Females ?Range -Follicular Phase ?3.6 - 16.0 -Mid-Cycle Peak ?3.4 - 33.0 -Luteal Phase ?1.5 - 9.1 Postmenopausal Females ?22.9 - 167 Specimen (Source) Anatomical Collection Method Collection Time Re ceived Time Location / / Volume Laterality 08/07/2001 11:37 AM HOUSE MOVER Margot Motley MD LAB_1 Performing Organization Address City/State/ZIP Code Phon e Number HP CONVERSION Pathology Report (08/04/2001 2:21 PM HOUSE MOVER) [facility] gist Method Time Signature Surgical SEE TEXT No normal HP CONVERSION Pathology range Comment: Patient: RAMONA SHEIKH ?S URGICAL PATHOLOGY REPORT Pathology # ??[id number] ?Date Obtained: ? Date Received: DIAGNOSIS: ?Endometrium, biopsy - ?1. ??Scant weakly proliferative en dometrium with stromal collapse. ?2. ??Endocervical polyp formation with acute and chronic endocervicitis and ?squamous metaplasia. ?3. ??No evidence of endometrial po lyp formation, hyperplasia, atypia, or ?malignancy. ?Vinny Menchaca MD ?(electronic signature) MDM/MDM/amf Date of Report: 08/08/01 Pathology # ??[id number] ?Date Obtained: ? Date Received: ORGAN/TISSUE SITE: ?Endometrium GROSS DESCRIPTION: ?The specimen is identified as endo metrial biopsy. Altogether the fragments ?of soft tissue measure approximate ly 1.0 ml in volume. [facility] MICROSCOPIC DESCRIPTION: ?The microscopic examination substa ntiates the diagnosis cited. Specimen (Source) Anatomical Collection Method Collection Time Re ceived Time Location / / Volume Laterality 08/04/2001 2:21 PM HOUSE MOVER Lakhwinder Cobb MD LAB_1 Performing Organization Address [...] Transmitted Disease Probe (04/05/2001 5:03 PM CDT) [facility] Method Time Signature Sexually SEE TEXT HP CONVERSION Transmitted Disease Probe Comment: Patient: RAMONA SHEIKH Sexually Trans Disease Probe @ ?Collected: ??[id number] ??170 Source: ENDOCERV ?Processed: ??[id number] ??170 Final Report ------ ?[id number] ??1510 No Chlamydia trachomatis by amplified DN A probe. No Neisseria gonorrhoeae by DNA probe. @ = Sexually Trans Disease Probe Perform ed at ??[address] [facility], [place] [address] Specimen (Source) Anatomical Collection Method Collection Time Re ceived Time Location / / Volume Laterality 04/05/2001 5:03 PM CDT Merrill Villavicencio MD LAB_1 Performing Organization Address [facility] Phon e Number HP CONVERSION (ABNORMAL) Wet Prep [facility] (04/05/2001 11:19 AM CDT) Patholo gist Method Time Signature Wet Smear ? No normal HP CONVERSION range Trichomonas Negative No normal HP CONVERSION range Wet Prep WBC Moderate No normal HP CONVERSION [facility] Bacteria Urine Moderate No normal HP CONVERSION range Wet Prep Clue Negative No normal HP CONVERSION Cells [facility] U Yeast Positive (A) No normal HP CONVERSION range Wet Prep Amine Negative No normal HP CONVERSION Odor [facility] Specimen (Source) Anatomical Collection Method Collection Time Re ceived Time Location / / Volume Laterality 04/05/2001 11:19 AM CDT Merrill Villavicencio MD LAB_1 Performing Organization Address [facility] Phon e Number HP CONVERSION Urine Culture (04/05/2001 10:38 AM CDT) Analysis Performed At Patho logist Time Signature Urine Culture SEE TEXT HP CONVERSION Comment: Patient: RAMONA SHEIKH Carmen Culture, Urine @ ?Collected: ??[id number] ??[id number] Source: Clean Ca ?Processed: ??[id number] ??1038 ? SENS Final Report ------ ?[id number] ??0854 50-100,000 CFU/mL Mixed gram positive or ganisms No further workup @ = URINE CULTURE Performed at ??[address] [facility], [place] ?[address] URINE CULTURE ([id number] -- Current) Specimen (Source) Anatomical Collection Method Collection Time Re ceived Time Location / / Volume Laterality 04/05/2001 10:38 AM CDT Merrill Villavicencio MD LAB_1 Performing Organization Address City/State/ZIP Code Phon e Number HP CONVERSION (ABNORMAL) Urinalysis Complete Hold Culture (04/05/2001 10:03 AM CDT) [facility] gist Method Time Signature U Specific >=1.030 1.005 - 25 HP CONVERSION [place] pH Urine 5.0 4.5 - 7.5 HP [...] : CHRISTA TRANS-ID: Margot Motley MD RAD [facility] Wet Prep [facility] (06/09/2000 7:51 PM CDT) [facility] Method Time Signature Wet Prep [place] ? No normal HP CONVERSION [facility] Wet Prep Trich Negative No normal HP CONVERSION [facility] Wet Prep WBC Few No normal HP CONVERSION [facility] Wet Prep Few No normal HP CONVERSION Bacteria [facility] Wet Prep Clue Negative No normal HP CONVERSION Cells [place] [facility] Wet Prep Yeast Negative No normal HP CONVERSION [facility] Wet Prep Amine Negative No normal HP CONVERSION [place] range [facility] Specimen (Source) Anatomical Collection Method Collection Time Re ceived Time Location / / Volume Laterality 06/09/2000 7:51 PM CDT Stephy Cheng MD LAB_1 Performing Organization Address [facility] Phon e Number HP CONVERSION XR Foot 3+ Views (06/09/2000 7:51 PM CDT) Anatomical Region Laterality Modality Other Specimen (Source) Anatomical Location Collection Method / Collectio n Time Received Time / Laterality Volume Narrative 06/09/2000 7:51 PM CDT CLINICAL DATA: ?[id number] FINDINGS: ?NO ACUTE FRACTURE. ??NO SIGNIFICAN T ARTHRITIC CHANGES. ??THERE ?IS MILD POSTERIOR CALCANEAL SPURRI NG SEEN. ?MT [id number] TECH-ID : ? RAMONA TRANS-ID: ? EDR Procedure Note Avel Gupta MD - 12/06/2016 CLINICAL DATA: [id number] FINDINGS: NO ACUTE FRACTURE. NO SIGNIFICANT ARTHR [...] Margot Motley MD LAB_1 Performing Organization Address [facility] Phon e Number HP CONVERSION (ABNORMAL) Beta Strep Followup (05/14/2000 5:04 PM CDT) Analysis Performed At Patho logist Time Signature Strep Screen SEE TEXT HP CONVERSION (A) Comment: Patient: RAMONA SHEIKH Rapid Strep Follow up Culture @ ? Collected: ??[id number] ??[id number] Source: Throat ?Processed: ??[id number] ??[id number] Final Report ------ ?[id number] ??0951 Beta Strep Group A Present. ICSI Pharyngitis guideline recommends Penicillin V potassium (Pen VK) in nonal lergic patients. If < 50 lbs, 250 mg PenVK BID for 10 day s. >=50 lbs, 500 mg PenVK BID for 10 days. @ = Rapid F/U Cult Performed at [address], [place] ?[address] Specimen (Source) Anatomical Collection Method Collection Time Re ceived Time Location / / Volume Laterality 05/14/2000 5:04 PM CDT Margot Motley MD LAB_1 Performing Organization Address [facility] Phon e Number HP CONVERSION Strep Group A Antigen Test (03/13/2000 2:46 PM CDT) Analysis Performed At [facility] Time Signature Strep Group A Negative Negative HP CONVERSION Antigen Test Comment: Culture to follow. Specimen (Source) Anatomical Collection Method Collection Time Re ceived Time Location / / Volume Laterality 03/13/2000 2:46 PM CDT Linsey Trujillo MD LAB_1 Performing Organization Address [facility] Code Phon e Number HP CONVERSION Beta Strep Followup (03/13/2000 2:46 PM CDT) athologist Signature Strep Screen SEE TEXT HP CONVERSION Comment: Patient: RAMONA SHEIKH Carmen Rapid Strep Follow up Culture @ ? Collected: ??[id number] ??1446 Source: Throat ?Processed: ??[id number] ??1448 Final Report ------ ?[id number] ??0942 No beta hemolytic Strep group A isolated . @ = Rapid F/U Cult Performed at [address] [place], [place] ?[address] Specimen (Source) Anatomical Collection Method Collection Time Re ceived Time Location / / Volume Laterality 03/13/2000 2:46 PM CDT Linsey Trujillo MD LAB_1 Performing Organization Address City/State/ZIP Code Phon e Number HP CONVERSION (ABNORMAL) Clostridium Difficile Toxin (01/07/2000 9:00 PM CDT) [facility] gist Method Time Signature Clostridium SEE TEXT HP CONVERSION difficile Toxin (A) Comment: Patient: RAMONA SHEIKH Source: Stool ? [id number] ?Processed: ??[id number] 1556 Final Report ------ ?[id number] ?1129 Clostridium difficile toxin detected Telephone report made to: [facility] 01-09-00 PB @ = C DIFF TOXIN Performed at [address] [place], [place] ?[address] Specimen (Source) Anatomical Collection Method Collection Time Re ceived Time Location / / Volume Laterality 01/07/2000 9:00 PM CDT Kaden Jesus MD LAB_1 Performing Organization Address City/State/ZIP Code Phon e Number HP CONVERSION [place] Antigen Screen (01/07/2000 9:00 PM CDT) P athologist Signature [place] Ab SEE TEXT HP CONVERSION Comment: Patient: KORI RAMONA E [place] Screen @ ?Collected: ??[id number] ??2100 Source: Stool ? Processed: ??[id number] ??1556 Final Report ------ ?[id number] ??1532 Negative for Giardia antigen @ = Giardia Screen Performed at [address] [facility] Specimen (Source) Anatomical Collection Method Collection Time Re ceived Time Location / / Volume Laterality 01/07/2000 9:00 PM CDT Kaden Jesus MD LAB_1 Performing Organization Address [facility] Phon e Number HP CONVERSION Ova and Parasite (01/07/2000 9:00 PM CDT) [facility] gist Method Time Signature Ova & Parasite SEE TEXT HP CONVERSION Concentrate Comment: Patient: KORI RAMONA E Ova + Parasite Exam @ ? Collected: ??[id number] ??2100 Source: Stool ? Processed: ??[id number] ??1556 Final Report ------ ?[id number] ??0855 No amoeba, ova or parasites seen upon co ncentration No trophozoites or cysts seen on permane nt stain prep. No Cryptosporidia or Cyclospora seen. Specimen (Source) Anatomical Collection Method Collection Time Re ceived Time Location / / Volume Laterality 01/07/2000 9:00 PM CDT Kaden Jesus MD LAB_1 Performing Organization Address [facility]/ZIP Code Phon e Number HP CONVERSION Electrolytes [...] Kaden Jesus MD LAB_1 Performing Organization Address City/[facility] Phon e Number HP CONVERSION Hemoglobin, Blood (01/06/2000 3:35 PM CDT) athologist Signature Hemoglobin 14.6 11.8 - 15.5 HP CONVERSION gm/dL Specimen (Source) Anatomical Collection Method Collection Time Re ceived Time Location / / Volume Laterality 01/06/2000 3:35 PM CDT Kaden Jesus MD LAB_1 Performing Organization Address City/[facility]/ZIP Code Phon e Number HP CONVERSION ESR (01/06/2000 3:35 PM CDT) [facility] Method Time Signature Sedimentation Rate 5 0 - 20 HP CONVERSI ON mm/Hr Specimen (Source) Anatomical Collection Method Collection Time Re ceived Time Location / / Volume Laterality 01/06/2000 3:35 PM CDT Kaden Jesus MD LAB_1 Performing Organization Address City/[facility]/ZIP Code Phon e Number HP CONVERSION Thyroid Stimulating Hormone (01/06/2000 3:35 PM CDT) athologist Signature Thyroid 0.92 0.20 - HP CONVERSION Stimulating 5.50 Hormone uIU/mL Specimen (Source) Anatomical Collection Method Collection Time Re ceived Time Location / / Volume Laterality 01/06/2000 3:35 PM CDT Kaden Jesus MD LAB_1 Performing Organization Address City/[facility]/ZIP Code Phon e Number HP CONVERSION Ova and Parasite (12/27/1999 1:05 PM HOUSE MOVER) [facility] gist Method Time Signature Ova & Parasite SEE TEXT HP CONVERSION Concentrate Comment: Patient: RAMONA SHEIKH E Ova + Parasite Exam @ ? Collected: ??[id number] ??1305 Source: Stool ? Processed: ??[id number] ??1512 Final Report ------ ?[id number] ??1333 No amoeba, ova or parasites seen upon co ncentration No trophozoites or cysts seen on permane nt stain prep. No Cryptosporidia or Cyclospora seen. Specimen (Source) Anatomical Collection Method Collection Time Re ceived Time Location / / Volume Laterality 12/27/1999 1:05 PM HOUSE MOVER Solomon Alexis MD LAB_1 Performing Organization Address City/State/ZIP Code Phon e Number HP CONVERSION Stool Culture (12/27/1999 1:05 PM HOUSE MOVER) Analysis Performed At [facility] Time Signature Stool Culture SEE TEXT HP CONVERSION Comment: Patient: RAMONA SHEIKH Culture, Stool @ ?Collected: ??[id number] ??1305 Source: Stool ? Processed: ??[id number] ??1512 Final Report ------ ?[id number] ??0903 No Salmonella, Shigella, Campylobacter o r E coli 0157 isolated. Aeromonas, Plesiomonas, and Vi brio may be missed. If patient has a history of fore ign travel, eating raw shellfish or other contact wi th contaminated water, another culture should be submitt ed with these organisms specifically requested. @ = STOOL CULTURE Performed at [address], [place] ?[address] Specimen (Source) Anatomical Collection Method Collection Time Re ceived Time Location / / Volume Laterality 12/27/1999 1:05 PM HOUSE MOVER Solomon Alexis MD LAB_1 Performing Organization Address City/State/ZIP Code Phon e Number HP CONVERSION US Unilateral Venous Mapping (12/03/1999 3:00 PM HOUSE MOVER) Anatomical Region Laterality Modality Other Specimen (Source) Anatomical Location Collection Method / Collectio n Time Received Time / Laterality Volume Impressions 12/03/1999 3:00 PM HOUSE MOVER : ?INCOMPETENCY INVOLVING PROXIMAL LE FT GREATER [...] TRANS-ID: ? NLL Narrative 12/03/1999 3:00 PM HOUSE MOVER CLINICAL DATA: ?LT LEG JUNE U/S, INCOMP. [...] : TMK TRANS-ID: NLL Ángel Hodgson MD [facility] Anatomical Path-C (10/16/1999 5:45 AM HOUSE MOVER) athologist Signature PAP Smear SEE TEXT No normal HP CONVERSION range Comment: Patient: RAMONA SHEIKH ? CERVICAL CYTOLOGY REPORT Pathology # ??[id number] ?Date Obtained: ? Date Received: LMP: CLINICAL HIST CERVICAL SMEAR SPECIMEN ADEQUACY: ?? Satisfactory. ENDOCERVICAL CELLS: ??Absent; patient is post-menopausal. CYTOLOGIC IMPRESSION: Within Normal Limits (Negative). Verified 10/22/99 by: ??DLS ?(electronic signature) Specimen (Source) Anatomical Collection Method Collection Time Re ceived Time Location / / Volume Laterality 10/16/1999 5:45 AM HOUSE MOVER Margot Motley MD LAB_1 Performing Organization Address City/[facility]/ZIP Code Phon e Number HP CONVERSION (ABNORMAL) Lipid Panel and Direct LDL(If Needed) (09/22/1999 10:19 AM HOUSE MOVER) Patholo gist Method Time Signature Length Of [...] / / Volume Laterality 09/22/1999 10:19 AM HOUSE MOVER Margot Motley MD LAB_1 Performing Organization Address [facility] Phon e Number HP CONVERSION Glucose (09/22/1999 10:19 AM HOUSE MOVER) P athologist Signature Length Of Fast 12.0 8.0 - 24.0 HP CONVERSION Hours Lab Glucose 80 70 - 115 HP CONVERSION mg/dL Specimen (Source) Anatomical Collection Method Collection Time Re ceived Time Location / / Volume Laterality 09/22/1999 10:19 AM HOUSE MOVER Margot Motley MD LAB_1 Performing Organization Address City/[facility]/ZIP Code Phon e Number HP CONVERSION (ABNORMAL) Result Conversion Dummy Order (07/21/1999 8:11 PM CDT) P athologist Signature RB pH 0.0 (LL) 7.2 - 8.0 HP CONVERSION Specimen (Source) Anatomical Collection Method Collection Time Re ceived Time Location / / Volume Laterality 07/21/1999 8:11 PM CDT Margot Motley MD LAB_1 Performing Organization Address City/[facility]/ZIP Code Phon e Number HP CONVERSION Beta Strep Followup (07/21/1999 8:11 PM CDT) P athologist Signature Strep Screen SEE TEXT HP CONVERSION Comment: Patient: RAMONA SHEIKH Rapid Strep Follow up Culture @ ? Collected: ??[id number] ??2010 Source: Throat ?Processed: ??[id number] ??2012 Final Report ------ ?[id number] ??1254 No beta hemolytic Strep group A isolated . @ = Rapid F/U Cult Performed at [address] [place], [place] ?[address] Specimen (Source) Anatomical Collection Method Collection Time Re ceived Time Location / / Volume Laterality 07/21/1999 8:11 PM CDT Margot Motley MD LAB_1 Performing Organization Address City/[facility] Phon e Number HP CONVERSION Strep Group A Antigen Test (07/21/1999 8:11 PM CDT) Analysis Performed At [facility] Time Signature Strep Group A Negative Negative HP CONVERSION Antigen Test Comment: Culture to follow. Specimen (Source) Anatomical Collection Method Collection Time Re ceived Time Location / / Volume Laterality 07/21/1999 8:11 PM CDT Margot Motley MD LAB_1 Performing Organization Address City/[facility] Code Phon e Number HP CONVERSION Strep Group A Antigen Test (07/19/1999 3:52 PM CDT) Analysis Performed At [facility] Time Signature Strep Group A Negative Negative [...] Strep Follow up Culture @ ? Collected: ??[id number] ??1552 Source: Throat ?Processed: ??[id number] ??1558 Final Report ------ ?[id number] ??0946 No beta hemolytic Strep group A isolated . @ = Rapid F/U Cult Performed at [address], [place] ?[address] Specimen (Source) Anatomical Collection Method Collection Time Re ceived Time Location / / Volume Laterality 07/19/1999 3:52 PM CDT Danish Woods MD LAB_1 Performing Organization Address City/[facility] Phon e Number HP CONVERSION MM Mammogram [...] ?AND NO SUSPICIOUS CALCIFICATIONS. TECH-ID : ? [facility] TRANS-ID: ? QTR Narrative 06/02/1999 7:20 PM [...] MASSES AND NO SUSPICIOUS CALCIFICATIONS. TECH-ID : [facility] TRANS-ID: QTR Margot Motley MD RAD [facility] CT Maxface WO IV Cont (01/21/1999 [...] CT Pathology Report (03/21/1998 2:20 PM CDT) [facility] Method Time Signature Surgical SEE TEXT No normal HP CONVERSION Pathology range Comment: Patient: RAMONA SHEIKH ?S URGICAL PATHOLOGY REPORT Pathology # ??[id number] ?Date Obtained: ? 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 ?Socorro Sylvester M.D. ?(electronic signature) ENM/ENM/amf Date of Report: 03/25/98 Pathology # ??[id number] ?Date Obtained: ? Date Received: ORGAN/TISSUE SITE: [...] ?ROUTV MAMMO FINDINGS: ?BOTH BREASTS HAVE A [id number] RKED DEGREE OF OVERALL ?DENSITY. ??THERE IS ASYMMETRICAL D ENSITY IN THE LEFT UPPER ?CENTRAL BREAST AT 12 O'CLOCK, WHIC H HAS NOT CHANGED FROM ?PRIOR STUDY 01/09/97. ??THIS WAS ALS O REPORTEDLY UNCHANGED A ?YEAR AGO FROM FILMS AT [facility] IN 1992. ??THERE IS NO ?EVIDENCE OF MALIGNANCY AND A ONE-Y EAR FOLLOW-UP MAMMOGRAM IS ?RECOMMENDED. TECH-ID : ? [facility] TRANS-ID: ? SL Procedure Note Margot Jackson MD - 12/06/2016Fo rmatting of this note might be different from the original. SEVERITY: 1 CLINICAL DATA: ROUTV MAMMO FINDINGS: BOTH BREASTS HAVE A [id number]-[id number] DEGREE OF OVERALL DENSITY. THERE IS ASYMMETRICAL DENSITY IN THE LEFT UPPER CENTRAL BREAST AT 12 O'CLOCK, WHICH HAS NOT CHANGED FROM PRIOR STUDY 01/09/97. THIS WAS ALSO REPOR TEDLY UNCHANGED A YEAR AGO FROM FILMS AT [facility] IN 1992. THERE IS NO EVIDENCE OF MALIGNANCY AND A ONE-YEAR F OLLOW-UP MAMMOGRAM IS RECOMMENDED. TECH-ID : [facility] TRANS-ID: SL Margot Motley MD RAD [facility] (ABNORMAL) Cholesterol (Total) (12/17/1997 5:10 PM HOUSE MOVER) Patholo gist Method Time Signature Length Of Fast 1.0 (LL) 12.0 - HP CONVERSION 24.0 Hours Cholesterol 211 (HH) 125 - 199 HP CONVERSION mg/dL Specimen (Source) Anatomical Collection Method Collection Time Re ceived Time Location / / Volume Laterality 12/17/1997 5:10 PM HOUSE MOVER Margot Motley MD LAB_1 Performing Organization Address City/State/ZIP Code Phon e Number HP CONVERSION Potassium (12/17/1997 5:10 PM HOUSE MOVER) athologist Signature Potassium 4.0 3.5 - 5.2 HP CONVERSION mmol/L Specimen (Source) Anatomical Collection Method Collection Time Re ceived Time Location / / Volume Laterality 12/17/1997 5:10 PM HOUSE MOVER Margot Motley MD LAB_1 Performing Organization Address City/[facility]/ZIP Code Phon e Number HP CONVERSION Sodium (12/17/1997 5:10 PM HOUSE MOVER) athologist Signature Sodium 139 137 - 147 HP CONVERSION mmol/L Specimen (Source) Anatomical Collection Method Collection Time Re ceived Time Location / / Volume Laterality 12/17/1997 5:10 PM HOUSE MOVER Margot Motley MD LAB_1 Performing Organization Address City/State/ZIP Code Phon e Number HP CONVERSION HDL Cholesterol (12/17/1997 5:10 PM HOUSE MOVER) athologist Signature HDL Cholesterol 61 36 - 80 HP CONVERSION mg/dL Specimen (Source) Anatomical Collection Method Collection Time Re ceived Time Location / / Volume Laterality 12/17/1997 5:10 PM HOUSE MOVER Margot Motley MD LAB_1 Performing Organization Address City/State/ZIP Code Phon e Number HP CONVERSION Hemoglobin, Blood (12/17/1997 5:10 PM HOUSE MOVER) athologist Signature Hemoglobin 15.1 11.8 - 15.5 HP CONVERSION gm/dL Comment: PLEASE FAX ALL RESULTS TO [facility] AT [phone] Specimen (Source) Anatomical Collection Method Collection Time Re ceived Time Location / / Volume Laterality 12/17/1997 5:10 PM HOUSE MOVER Margot Motley MD LAB_1 Performing Organization Address City/State/ZIP Code Phon e Number HP CONVERSION Thyroid Stimulating Hormone (12/17/1997 5:10 PM HOUSE MOVER) P athologist Signature Thyroid 1.65 0.20 - HP CONVERSION Stimulating 5.50 Hormone mIU/mL Specimen (Source) Anatomical Collection Method Collection Time Re ceived Time Location / / Volume Laterality 12/17/1997 5:10 PM HOUSE MOVER Margot Motley MD LAB_1 Performing Organization Address City/State/ZIP Code Phon e Number HP CONVERSION MR Cervical Spine WO IV Cont (12/11/1997 4:45 PM HOUSE MOVER) Anatomical Region Laterality Modality Spine, C-Spine, Neck, Vascular Other Specimen (Source) Anatomical Location Collection Method / Collectio n Time Received Time / Laterality Volume Impressions 12/11/1997 4:45 PM HOUSE MOVER : ?MILD BULGING DISC AT THE C4-5 [...] TRANS-ID: ? KFM Narrative 12/11/1997 4:45 PM HOUSE MOVER CLINICAL DATA: ?CERV/RT RADIC ?P/XR/PN Procedure Note [...] IS UNCHANGED ?FROM 01/06/93, FILMS DONE AT [facility] IN [place], [place]. ?THERE IS NO EVIDENCE FOR MALIGNANC [...] IS UNCHANGED FROM 01/06/93, FILMS DONE AT [facility] IN [place], [place]. THERE IS NO EVIDENCE FOR MALIGNANCY AND NO OTHER CHANGES FROM THAT TIME. ROUTINE FOLLOW UP IS RE COMMENDED. TECH-ID : TRANS-ID: FABIO Margot Motley MD RAD [facility] documented in this encounter Visit Diagnoses Not on filedocumented in this encounter Care Teams Cat Swamper Relationship Specialty Start Date End Date Titus Medina MD PCP - General 09/16/1996 03/17/15 documented as of this encounter
--- OUTSIDE RECORDS SUMMARY | 2022-07-30 20:32 | XMS_ITS | Encounter Summary ---
:1945 Author Organization [facility] Address [address] [place] [address] Care Team Providers Name Role Phone Titus Medina MD Primary Care Provider Encounter Details Date Type Department Care Team Description 06/23/1995 Office Visit [facility] Everton Tena, VACCINE FOR INFLUENZA 205 [facility] [address] [place] [address] [place], [place] 118[address] Social History Tobacco Use Types Packs/Day Years Used Date Smoking Tobacco: Never Assessed Sex Assigned at Date Recorded Not on file documented as of this encounter Plan of Treatment Not on filedocumented as of this encounter Visit Diagnoses Diagnosis VACCINE FOR INFLUENZA documented in this encounter Care Teams Rehabilitation Aide Relationship Specialty Start Date End Date Titus Medina MD PCP - General 09/16/1996 03/17/15 documented as of this encounter
--- OUTSIDE RECORDS SUMMARY | 2022-07-30 20:32 | XMS_ITS | Encounter Summary ---
:1945 Author Organization [employer] Address [address] [place] [address] Care Team Providers Name Role Phone Titus Medina MD Primary Care Provider Encounter Details Date Type Department Care Team Description 05/07/1998 Hospital Encounter CONV METH Jey Nick MD [address] [employer] [place], [place] [id number] 6500 [facility] Jey [place] MD [address] [employer] [place], [place] [phone] [place] [address] Social History Tobacco Use Types Packs/Day Years Used Date Smoking Tobacco: Never Assessed Sex Assigned at Date Recorded Not on file documented as of this encounter Procedure Notes Jey [place]ina MD - 05/28/1998 12:01 AM CDT OR Surgeon signed by Tyba Print And at 09/10/99 1200 Author: Jey [place]ina MD Service: (none) Author Type: Physician Filed: 01/21/11 0608 Note Time: 05/28/98 0000 Status: Signed Plug Wirer: Jey [place]ina MD (Physician) [id number] OPERATIVE REPORT DATE OF PROCEDURE: 05-07-98 SURGEON: [...] expected. CROW/sct/ak, , Signed: Reji [place]ina M.D. LOGIST Jey [place]ina MD - 05/07/1998 12:01 AM CDT OR Surgeon signed by Distribute [employer] And at 09/10/99 1200 Author: Jey [place]ina MD Service: (none) Author Type: Physician Filed: 01/21/11 0549 Note Time: 05/07/98 0000 Status: Signed Plug Wirer: Jey [place]ina MD (Physician) [id number] OPERATIVE REPORT DATE OF PROCEDURE: 05/07/98 SURGEON: [...] stable. CROW/sct/ngs Signed: M. Zaheer [place]ina M.D. LOGIST documented in this encounter Miscellaneous Notes Miscellaneous - Jey [place]ina MD - 05/07/1998 7:20 PM CDT ICD-9-CM ICD-9-CM Narrative description Code ======== DIAGNOSES Principal: HYPERTROPHY OF BREAST 611.1 PROCEDURES Provider Date Principal: BILAT REDUCT MAMMOPLASTY 85.32 CPT4 Principal: REDUCTION OF LARGE BREAS 22242 Secondary: REDUCTION OF LARGE BREAS 50132 documented in this encounter Plan of Treatment Not on filedocumented as of this encounter Procedures Procedure Name Priority Date/Time Associated Comments Diagnosis CONVERSION DEFAULT Routine 05/07/1998 11:31 AM Caprice roldan for this INTERFACE ORDER CDT procedure ar e in the results section. documented in this encounter Results Conversion Default Interface Order (05/07/1998 11:31 AM CDT) [facility] Method Time Signature Surgical See Detail HP CONVERSION Pathology Comment: Patient: YIMI GARCIA ? SURGICAL PATHOLOGY REPORT Pathology # ??[id number] ?Date Obtained: ?Date Received: DIAGNOSIS: A\T\B)Benign fat replaced breast tissue showing fibrocystic changes and rare ? foci of dystrophic calcification, incidental to bilateral reduction ? mammoplasty. ? Jessica Smiley M.D. ? (electronic signature) RPW/RPW/bjw Date of Report: 05/08/98 Pathology # ??[id number] ?Date Obtained: ?Date Received: ORGAN/TISSUE SITE: ? [...] ??No grossly infiltrative areas ? are seen. ??Radio Recorder sectio ns submitted. B) ??The specimen consists of 426 grams of skin and fibrofatty breast tissue, ? including a wing-shaped piece of tissue measuring 33 x 12 x 3.5 cm and ? some elongated pieces of skin. ?? The gross features are quite similar to ? the breast tissue described above . ??No grossly infiltrative areas are ? seen. ??Radio Recorder sections s ubmitted. [facility] MICROSCOPIC DESCRIPTION: A) ??The paraffin sections contain [...] on filedocumented in this encounter Care Teams Curb Setter Helper Relationship Specialty Start Date End Date Titus Medina MD PCP - General 09/16/1996 03/17/15 documented as of this encounter
--- OUTSIDE RECORDS SUMMARY | 2022-07-30 20:32 | XMS_ITS | Encounter Summary ---
:1945 Author Organization [facility] Address [address] [place] [address] Care Team Providers Name Role Phone Titus [...] surgery documented in this encounter Care Teams Disk Sharpener Relationship Specialty Start Date End Date Titus Medina MD PCP - General 09/16/1996 03/17/15 documented as of this encounter
--- OUTSIDE RECORDS SUMMARY | 2022-07-30 20:32 | XMS_ITS | Encounter Summary ---
:1945 Author Organization [facility] Address [address] [place] [address] Care Team Providers Name Role Phone Titus Medina MD Primary Care Provider Encounter Details Date Type Department Care Team Description 02/16/1994 Office Visit [facility] Pillo King MD Nonspecific abnormal [address] LINIC findings on [address] radiological or other [place] [address] breast [phone] (Wo rk) Social History Tobacco Use Types Packs/Day Years Used Date Smoking Tobacco: Never Assessed Sex Assigned at Date Recorded Not on file documented as of this encounter Plan of Treatment Not on filedocumented as of this encounter Visit Diagnoses Diagnosis Nonspecific abnormal findings on radiolo gical or other examinations of the breast documented in this encounter Care Teams Sash Assembler Relationship Specialty Start Date End Date Titus Medina MD PCP - General 09/16/1996 03/17/15 documented as of this encounter
--- OUTSIDE RECORDS SUMMARY | 2022-07-30 20:32 | XMS_ITS | Encounter Summary ---
:1945 Author Organization [facility] Address [address] [place] [address] Care Team Providers Name Role Phone Margot [...] on filedocumented in this encounter Care Teams Beef Skinner Relationship Specialty Start Date End Date Margot Branham MD PCP - General Internal Medicine 07/04/[address] [address] documented as of this encounter
--- OUTSIDE RECORDS SUMMARY | 2022-07-30 20:32 | XMS_ITS | Encounter Summary ---
:1945 Author Organization [facility] Address [address] [place] [address] Care Team Providers Name Role Phone Titus Medina MD Primary Care Provider Encounter Details Date Type Department Care Team Description 02/26/1994 Office Visit Danish Sanchez DPM Entheso elli of ankle and tarsus, unspeci fied Social History Tobacco Use Types Packs/Day Years Used Date Smoking Tobacco: Never Assessed Sex Assigned at Date Recorded Not on file documented as of this encounter Plan of Treatment Not on filedocumented as of this encounter Visit Diagnoses Diagnosis Enthesopathy of ankle and tarsus, unspec ified documented in this encounter Care Teams Western Philosophy Professor Relationship Specialty Start Date End Date Titus Medina MD PCP - General 09/16/1996 03/17/15 documented as of this encounter
--- OUTSIDE RECORDS SUMMARY | 2022-07-30 20:32 | XMS_ITS | Encounter Summary ---
:1945 Author Organization [facility] Address [address] [place] [address] Care Team Providers Name Role Phone Titus Medina MD Primary Care Provider Encounter Details Date Type Department Care Team Description 02/09/1994 Office Visit [facility] Ana Lilia Willams MD Examination of ears 205 [facility] [place] and hearing [address] [address] [place], [place] [address] Social History Tobacco Use Types Packs/Day Years Used Date Smoking Tobacco: Never Assessed Sex Assigned at Date Recorded Not on file documented as of this encounter Plan of Treatment Not on filedocumented as of this encounter Visit Diagnoses Diagnosis Examination of ears and hearing documented in this encounter Care Teams District Sales Coordinator Relationship Specialty Start Date End Date Titus Medina MD PCP - General 09/16/1996 03/17/15 documented as of this encounter
--- OUTSIDE RECORDS SUMMARY | 2022-07-30 20:32 | XMS_ITS | Encounter Summary ---
:1945 Author Organization [facility] [facility] Address [address] [place] [address] Care Team Providers Name Role Phone Titus Medina MD Primary Care Provider Encounter Details Date Type Department Care Team Description 07/21/1995 Office Visit [facility] Titus Medina MD Other, multiple, and Son [address] unspecified sites, 205 [place] [address] insect bite, [place] [address] nonvenomous, without mention of infection (919.4) Social [...] infection documented in this encounter Care Teams Account Management Assistant Relationship Specialty Start Date End Date Titus Medina MD PCP - General 09/16/1996 03/17/15 documented as of this encounter
--- OUTSIDE RECORDS SUMMARY | 2022-07-30 20:32 | XMS_ITS | Encounter Summary ---
:1945 Author Organization [facility] Address [address] [place] [address] Care Team Providers Name Role Phone Titus Medina MD Primary Care Provider Encounter Details Date Type Department Care Team Description 04/30/2000 Hospital Encounter CONV METH Ángel Ashley MD [address] [place] [id number] 6500 [facility] Ángel Hodgson MD [address] [place], [place] [address] [place] [address] Social History Tobacco Use Types Packs/Day Years [...] 1833 Note Time: 06/14/00 0824 Status: Signed Advertising Photographer: Ángel Hodgson MD (Physician) NAME: YIMI GARCIA MR#: [id number] JOB: [id number] OPERATIVE REPORT DATE OF OPERATION: 04/30/2000 INDICATIONS FOR PROCEDURE: PREOPERATIVE DIAGNOSIS: Left leg varicose veins. POSTOPERATIVE DIAGNOSIS: Left leg varicose veins. PROCEDURE PERFORMED: Left greater saphenous vein stripping and secondary varicose vein dissection. SURGEON: Ángel Hodgson MD. EMPLOYEE DEVELOPMENT SPECIALIST: Marianela Morrissey RN, KRISTINA. FINDINGS: DESCRIPTION OF [...] room in stable condition. ÁNGEL HODGSON MD MTS:[id number] C: DOCUMENT: [id number] MILL OPERATOR documented in this encounter Miscellaneous Notes Miscellaneous - Ángel Hodgson MD - 04/30/2000 12:01 AM CDT ICD-9-CM ICD-9-CM Narrative description Code ======== DIAGNOSES Principal: VARICOSE VEIN OF LEG NOS 454.9 PROCEDURES Provider Date Principal: LEG VARICOS V LIGA-STRIP ÁNGEL HODGSON [id number] 38.59 documented in this encounter Plan of Treatment Not on filedocumented as of this encounter Visit Diagnoses Not on filedocumented in this encounter Care Teams Pediatric Sports Medicine Specialist Relationship Specialty Start Date End Date Titus Medina MD PCP - General 09/16/1996 03/17/15 documented as of this encounter
--- OUTSIDE RECORDS SUMMARY | 2022-07-30 20:32 | XMS_ITS | Encounter Summary ---
:1945 Author Organization [facility] Address [address], [place] [address] Care Team Providers Name Role Phone Titus Medina MD Primary Care Provider Encounter Details Date Type Department Care Team Description 10/08/1994 Office Visit [facility] Ana Lilia Willams MD Need for prophylactic [address] [facility] [place] [facility] [place] vaccination and STRE[address] [place] [address] [place] unspecified single [place], [place] [address] disease Social History Tobacco Use Types Packs/Day Years Used Date Smoking Tobacco: Never Assessed Sex Assigned at Date Recorded Not on file documented as of this encounter Plan of Treatment Not on filedocumented as of this encounter Visit Diagnoses Diagnosis Need for prophylactic vaccination and in oculation against unspecified single disease documented in this encounter Care Teams Hims Coder Relationship Specialty Start Date End Date Titus Medina MD PCP - General 09/16/1996 03/17/15 documented as of this encounter
--- OUTSIDE RECORDS SUMMARY | 2022-07-30 20:32 | XMS_ITS | Encounter Summary ---
:1945 Author Organization [facility] Address [address] [place] [address] Care Team Providers Name Role Phone Titus [...] nail documented in this encounter Care Teams Surveyor Mine Relationship Specialty Start Date End Date Titus Medina MD PCP - General 09/16/1996 03/17/15 documented as of this encounter
--- OUTSIDE RECORDS SUMMARY | 2022-07-30 20:32 | XMS_ITS | Encounter Summary ---
:1945 Author Organization [facility] Address [address] [place] [address] Care Team Providers Name Role Phone Margot [...] on filedocumented in this encounter Care Teams Fullerette Relationship Specialty Start Date End Date Margot Branham MD PCP - General Internal Medicine 07/04/[address] [address] documented as of this encounter
--- OUTSIDE RECORDS SUMMARY | 2022-07-30 20:32 | XMS_ITS | Encounter Summary ---
:1945 Author Organization [facility] Address [address] [place] [address] Care Team Providers Name Role Phone Titus Medina MD Primary Care Provider Encounter Details Date Type Department Care Team Description 09/07/1994 Office Visit Urgent Care Titus Medina MD Acute sinusitis, [place] [address] unspecified 205 [place] [address] [place], [place] [id number] Social History Tobacco Use Types Packs/Day Years Used Date Smoking Tobacco: Never Assessed Sex Assigned at Date Recorded Not on file documented as of this encounter Plan of Treatment Not on filedocumented as of this encounter Visit Diagnoses Diagnosis Acute sinusitis, unspecified documented in this encounter Care Teams Repairer Cylinder Heads Relationship Specialty Start Date End Date Titus Medina MD PCP - General 09/16/1996 03/17/15 documented as of this encounter
--- OUTSIDE RECORDS SUMMARY | 2022-07-30 20:32 | XMS_ITS | Encounter Summary ---
:1945 Author Organization [facility] Address [address] [place] [address] Care Team Providers Name Role Phone Titus Medina MD Primary Care Provider Encounter Details Date Type Department Care Team Description 06/04/1994 Office Visit [facility] Everton Tena, Acute sinusitis, unspecified ; 205 [facility] Conjunct[address]itis [address] [place] [address] [place] [address] Social History Tobacco Use Types [...] unspecified documented in this encounter Care Teams Qa Tech Relationship Specialty Start Date End Date Titus Medina MD PCP - General 09/16/1996 03/17/15 documented as of this encounter
--- OUTSIDE RECORDS SUMMARY | 2022-07-30 20:32 | XMS_ITS | Encounter Summary ---
:1945 Author Organization [facility] Address [address] [place] [address] Care Team Providers Name Role Phone Titus Medina MD Primary Care Provider Encounter Details Date Type Department Care Team Description 11/04/1994 Office Visit [facility] Everton Tena MD Acute pharyngitis 205 [facility] [address] [place] [address] [place] [address] Social History Tobacco Use Types [...] if increased or persisting symptoms or problems. DING MACHINE TENDER documented in this encounter Plan of Treatment Not on filedocumented as of this encounter Visit Diagnoses Diagnosis Acute pharyngitis documented in this encounter Care Teams Network Technical Analyst Relationship Specialty Start Date End Date Titus Medina MD PCP - General 09/16/1996 03/17/15 documented as of this encounter
--- OUTSIDE RECORDS SUMMARY | 2022-07-30 20:32 | XMS_ITS | Encounter Summary ---
:1945 Author Organization [facility] Address [address] [place] [address] Care Team Providers Name Role Phone Titus Medina MD Primary Care Provider Encounter Details Date Type Department Care Team Description 02/24/1995 Office Visit [facility] II Stephan Mcknight Viral warts, unspecified; 205 [facility] EZIO Vera MD Benign isabel plasm of skin of trunk, except scrotum; [facility] Benign neoplasm of skin of o ther and unspecified parts of face; [place] [address] Acute kenny opharyngitis (common cold) Social History [...] symptoms, she would like to see the hand glass cutter. The nature of her multiple skin lesions [...] cold) documented in this encounter Care Teams Project Geologist Relationship Specialty Start Date End Date Titus Medina MD PCP - General 09/16/1996 03/17/15 documented as of this encounter
--- OUTSIDE RECORDS SUMMARY | 2022-07-30 20:32 | XMS_ITS | Encounter Summary ---
:1945 Author Organization [facility] Address [address] [place] [address] Care Team Providers Name Role Phone Titus Medina MD Primary Care Provider Encounter Details Date Type Department Care Team Description 11/05/1994 Office Visit [facility] Ana Lilia Willams MD Allergic rhinitis, 205 [facility] [place] cause unspecified [address] [address] [place], [place] [address] Social History Tobacco Use Types Packs/Day Years Used Date Smoking Tobacco: Never Assessed Sex Assigned at Date Recorded Not on file documented as of this encounter Plan of Treatment Not on filedocumented as of this encounter Visit Diagnoses Diagnosis Allergic rhinitis, cause unspecified documented in this encounter Care Teams Shop Coordinator Relationship Specialty Start Date End Date Titus Medina MD PCP - General 09/16/1996 03/17/15 documented as of this encounter
--- OUTSIDE RECORDS SUMMARY | 2022-07-30 20:32 | XMS_ITS | Encounter Summary ---
:1945 Author Organization [facility] Address [address] [place] [address] Care Team Providers Name Role Phone Titus Medina MD Primary Care Provider Encounter Details Date Type Department Care Team Description 11/01/2001 Hospital Encounter CONV METH ODShawn Munroe [address] [place] [address] Social History Tobacco Use Types Packs/Day Years [...] 0355 Note Time: 11/01/01 1221 Status: Signed Terra Cotta Roofer: Shawn Garcia MD (Physician) NAME: YIMI GARCIA MR#: [id number] JOB: [id number] OPERATIVE REPORT DATE OF OPERATION: 11/01/2001 DATE [...] SHAWN GARCIA MD CC: LAKHWINDER COBB MD HISTOLOGY SPECIALIST [facility] JATINDER DAVENPORT MD [facility] NSS:[id number] C: DOCUMENT: [id number] UTIVE VICE PRESIDENT AND CHIEF FINANCIAL OFFICER documented in this encounter Miscellaneous Notes Miscellaneous - Shawn Garcia MD - 11/01/2001 12:01 AM CST ICD-9-CM ICD-9-CM Narrative description Code ======== DIAGNOSES Principal: POLYP OF CORPUS UTERI 621.0 Secondary: MENSTRUAL DISORDER NEC 626.8 PROCEDURES Provider Date Principal: D & C NEC SHAWN GARCIA [id number] 69.09 Secondary: UTERINE LES DESTRUCT NEC SHAWN GARCIA [id number] 68.29 HYSTEROSCOPY SHAWN GARCIA [id number] 68.12 UTIVE VICE PRESIDENT AND CHIEF FINANCIAL OFFICER documented in this encounter Plan of Treatment Not on filedocumented as of this encounter Procedures Procedure Name Priority Date/Time Associated Diagnosis Comme nts SURGICAL PATHLEONARDA Routine 11/01/2001 4:23 PM Re sults for this NICOLLET EXECUTIVE VICE PRESIDENT AND CHIEF FINANCIAL OFFICER procedure are i n the results section. documented in this encounter Results Pathology Report (11/01/2001 4:23 PM EXECUTIVE VICE PRESIDENT AND CHIEF FINANCIAL OFFICER) [facility] gist Method Time Signature Surgical SEE TEXT No normal HP CONVERSION Pathology range Comment: Patient: YIMI GARCIA ?S URGICAL PATHOLOGY REPORT Pathology # ??[id number] ?Date Obtained: ? 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 ?Solomon Wilks M.D. ?(electronic signature) TRH/TRH/charli Date of Report: 11/02/01 Pathology # ??[id number] ?Date Obtained: ? Date Received: ORGAN/TISSUE SITE: [...] / / Volume Laterality 11/01/2001 4:23 PM EXECUTIVE VICE PRESIDENT AND CHIEF FINANCIAL OFFICER Shawn Garcia MD LAB_1 Performing Organization Address City/State/ZIP Code Phon e Number HP CONVERSION documented in this encounter Visit Diagnoses Not on filedocumented in this encounter Care Teams Yoker Relationship Specialty Start Date End Date Titus Medina MD PCP - General 09/16/1996 03/17/15 documented as of this encounter
--- OUTSIDE RECORDS SUMMARY | 2022-07-30 20:33 | XMS_ITS | Encounter Summary ---
:1945 Author Organization [facility] Address [address] [place] [address] Care Team Providers Name Role Phone Elsewhere, [...] or relatives? How often do you attend protestant or More than 4 times per year 01/28/2021 yazidism services? Do you belong to any clubs or Yes 01/28/2021 organizations such as protestant groups, unions, fraternal or athletic groups, or [...] have completed or the highest Armando, MEd, EYEGLASS LENS CUTTER, ALL) degree you have received? Sex Assigned at Date Recorded Female 07/26/2020 9:06 PM CDT documented as of this encounter Plan of Treatment Upcoming Encounters Date Type Specialty Care Team Description 09/08/2022 Procedure visit Aesthetic Medicine and Jaunita Vaz, Surgery ORACLE ANALYST, C.N.P. [address] [place] [phone] (Wo rk) 09/08/2022 Comprehensive Visit Aesthetic Medicine and Lucero Pritchard, Surgery M.DAnali, Ph.D. [address] [place] [phone] (Wo rk) documented as of this encounter [...] in this encounter Care Teams Director Of Marketing And Promotions Relationship Specialty Start Date End Date Elsewhere, Pcp PCP - General Internal Medicine 07/03/17 documented as of this encounter
--- OUTSIDE RECORDS SUMMARY | 2022-07-30 20:33 | XMS_ITS | Encounter Summary ---
:1945 Author Organization [facility] Address [address] [place] [address] Care Team Providers Name Role Phone Elsewhere, Pcp Primary Care Provider Unavailable Encounter Details Date Type Department Care Team Description 09/16/2021 Diagnostic Department of [place], Loss Hearing Otorhinolaryngology in [place]ive [place], [place] Efrain HarrisCAnaliCAnali-A Bilateral (Primary [address] [facility] [address] [place] [address] [facility] [phone] [place] [address] Social History Tobacco Use Types [...] level of school Master's degree (e.g., M aGge, MS, 03/30/2019 you have completed or the highest Armando, MEd, COMPUTER TECHNICIAN, ALL) degree you have received? Sex [...] been remade. Hearing Aid Information Left Right Infrastructure Consultant ReSound ReSound Model Linx 3D 577 Linx 3D 577 Style BTE (uewlhk-gfc-bzp) BTE (cpcijb-xzu-ugf) Serial Number [id number] Battery Size 13 13 ? Coupling Custom earmold, NURSING STAFF DEVELOPMENT COORDINATOR#5 Custom earmold, NURSING STAFF DEVELOPMENT COORDINATOR#5 ? Warranty Date 05/12/2022 05/12/2022 Trial Period [...] for referral. #1 Loss Hearing Sensorineural Bilateral OOR EMERGENCY CARE TECHNICIAN documented in this encounter Plan of Treatment Upcoming Encounters Date Type Specialty Care Team Description 09/08/2022 Procedure visit Aesthetic Medicine and Juanita Vaz, Surgery BILLBOARD POSTER, C.N.P. [address] [place] [phone] (Charlotte bentley) 09/08/2022 Comprehensive Visit Aesthetic Medicine Lucero Mckeon, Surgery M.DAnali, Ph.D. [address] [place] [phone] (Charlotte bentley) documented as of this encounter Visit Diagnoses Diagnosis Loss Hearing Sensorineural Bilateral - P rimary documented in this encounter Care Teams Stitching Machine Feeder Or Offbearer Relationship Specialty Start Date End Date Elsewhere, Pcp PCP - General Internal Medicine 07/03/17 documented as of this encounter
--- OUTSIDE RECORDS SUMMARY | 2022-07-30 20:33 | XMS_ITS | Encounter Summary ---
:1945 Author Organization [facility] Address [address] [place] [address] Care Team Providers Name Role Phone Elsewhere, Pcp Primary Care Provider Unavailable Reason for Referral Outpatient (Routine) - Authorized Specialty Diagnoses / Procedures Referred By Contact Refer red To Contact Endocrinology Diagnoses Osteoporosis Merrill Harris M.D. [facility] [address] [place] [phone] Referral ID Status Reason Start Date Expiration Date Visits V isits Requested Authorized [id number] Authorized 09/02/2021 09/02/2022 1 1 Scheduling Instructions Please schedule a 30 minute appointment. D ARTILLERY BASIC Outpatient (Routine) - Authorized Specialty Diagnoses / Procedures Referred By Contact Refer red To Contact Diagnoses Osteoporosis Merrill Harris M.D. [facility] Procedures BMD Bone Density Spine Hips [address] [place] [phone] Referral ID Status Reason Start Date Expiration Date Visits V isits Requested Authorized [id number] Authorized 09/02/2021 09/02/2022 1 1 D ARTILLERY BASIC Encounter Details Date Type Department Care Team Description 09/02/2021 Orders Only Division of Merrill Harris Osteoporosi s (Primary Endocrinology in M.DAnali Dx) [place], [place] [address] [place] [address] [place] [phone] Social History Tobacco Use Types Packs/Day Years [...] have completed or the highest Armando, MEd, NAPHTHOL SOAPING MACHINE OPERATOR, ALL) degree you have received? Sex Assigned at Date Recorded Female 07/26/2020 9:06 PM CDT documented as of this encounter Plan of Treatment Upcoming Encounters Date Type Specialty Care Team Description 09/08/2022 Procedure visit Aesthetic Medicine and Juanita Vaz, Surgery M1A1 TANK CREWMAN, C.N.P. 200 [place] [phone] (Charlotte bentley) 09/08/2022 Comprehensive Visit Aesthetic Lucero Arita, Surgery M.Norma, Ph.D. [address] [place] [phone] (Charlotte bentley) Scheduled Orders Name Type Priority Associated Diagnoses Order S chedule BMD Bone Density Imaging RAD - Routine (most Osteoporosis Expe cted: Spine Hips inpatients and all 2 outpatients) (Approximate), Expires: 09/13/2023 Calcium, Total Lab Routine Osteoporosis Expected: 09/14/2022 (Approximate), Expires: 09/13/2023 Creatinine with Lab Routine Osteoporosis Expected: Estimated GFR 09/14/2022 (Approximate), Expires: 09/13/2023 Scheduled Referrals Name Type Priority Associated Diagnoses Order S [facility] Endocrinology office Outpatient Routine Osteoporosis Expecte d: visit (clinic) Referral 09/14/2022 (Approximate), Expires: 09/13/2023 documented as of this encounter Visit Diagnoses Diagnosis Osteoporosis - Primary documented in this encounter Care Teams Continuous Yarn Dyeing Machine Operator Relationship Specialty Start Date End Date Elsewhere, Pcp PCP - General Internal Medicine 07/03/17 documented as of this encounter
--- OUTSIDE RECORDS SUMMARY | 2022-07-30 20:33 | XMS_ITS | Encounter Summary ---
:1945 [facility] Address [address] [place] [address] Care Team Providers Name Role Phone Titus Medina MD Primary Care Provider Encounter Details Date Type Department Care Team Description 11/12/1993 Office Visit [facility] Everton Tena, Acute sinusitis, unspecified ; 205 [facility] EZIO OLIVEROS Acute upper respiratory infections of un specified site [address] [place] [address] [place] [address] Social History Tobacco Use Types Packs/Day Years Used Date Smoking Tobacco: Never Assessed Sex Assigned at Date Recorded Not on file documented as of this encounter Plan of Treatment Not on filedocumented as of this encounter Visit Diagnoses Diagnosis Acute sinusitis, unspecified Acute upper respiratory infections of un specified site documented in this encounter Care Teams Quality Control Inspector Heading Relationship Specialty Start Date End Date Titus Medina MD PCP - General 09/16/1996 03/17/15 documented as of this encounter
--- OUTSIDE RECORDS SUMMARY | 2022-07-30 20:33 | XMS_ITS | Encounter Summary ---
:1945 Author Organization [facility] Address [address] [place] [address] Care Team Providers Name Role Phone Elsewhere, Pcp Primary Care Provider Unavailable Reason for Referral Outpatient (Routine) - Authorized Specialty Diagnoses / Procedures Referred By Contact Refer red To Contact Dermatology Diagnoses Wrinkled Skin Juanita Vaz APRN, [place] C.N.P. 200 [place] [address] Referral ID Status Reason Start Date Expiration Date Visits V isits Requested Authorized [id number] Authorized 07/24/2022 07/24/2023 1 1 Reason for Visit Outpatient (Routine) - Authorized Specialty Diagnoses / Procedures Referred By Contact Refer red To Contact Diagnoses Varicose Vein Lower Extremity With Pain Bilateral Juanita Vaz APRN, [facility] Procedures Sclerotherapy [place] INJ SCLEROSING SOLN MULT VEIN C.N.P. 200 [place] [address] Referral ID Status Reason Start Date Expiration Date Visits V isits Requested Authorized [id number] Authorized 04/14/2022 04/14/2023 3 3 Encounter Details Date Type Department Care Team Description 07/24/2022 Procedure visit [facility] Juanita Vaz ricose Vein Lower Extremity With Pain Bilateral; Medicine and Surgery CLAUDIA Malone, C. N.P. Wrinkled Skin in [facility] 200 [place], [place] 200 [facility] [address] [place], [place] [phone] (Work) [phone] Social History Tobacco Use Types Packs/Day Years [...] have completed or the highest Armando, MEd, WINE BOTTLE INSPECTOR, ALL) degree you have received? Sex [...] Vaz, Surgery CLAUDIA, C.N.P. [address] [place] [address] (Wo rk) 09/08/2022 Comprehensive Visit Aesthetic Medicine and WyLucero mcadams Surgery Francesca, Ph.D. [address] [place] [phone] (Wo rk) Scheduled Referrals Name Type Priority [...] Skin documented in this encounter Care Teams Bakery Worker Relationship Specialty Start Date End Date Elsewhere, Pcp PCP - General Internal Medicine 07/03/17 documented as of this encounter
--- OUTSIDE RECORDS SUMMARY | 2022-07-30 20:33 | XMS_ITS | Clinical Summary ---
:1945 Author Organization [facility] [place] [address] Care Team Providers Name Role Phone Lisseth [...] AM CDT Pulse 88 09/30/2009 10:[address] ENGINEER FREIGHT Temperature - - Respiratory Rate - - Oxygen Saturation - - Inhaled Oxygen Concentration - - Weight 73.9 kg (163 lb) 03/20/2010 10:54 AM CDT Height 168.9 cm (5' 6.5) 09/30/2009 10:[address] ENGINEER FREIGHT Body Mass Index 25.91 09/30/2009 10:[address] ENGINEER FREIGHT Plan of Treatment Health Maintenance Due Date [...] Addre ss Type Group HEALTH HP DISTINCTIONS [id number] [address] [place] [address] [facility] Contract Other 10/04/2011 [place] [employer],[place] (Home) [place] [id number] [facility] [address] [place] [address] Care Teams Supervisor Drawing Relationship Specialty Start Date End Date Lisseth Vang PCP - General 09/11/09
--- OUTSIDE RECORDS SUMMARY | 2022-07-30 20:33 | XMS_ITS | Encounter Summary ---
:1945 Author Organization [facility] Address [address] [place] [address] Care Team Providers Name Role Phone Elsewhere, [...] place to sleep or slept in a prison (including now)? Education Answer Date Recorded What is the highest level of school Master's degree (e.g., M A, MS, 03/30/2019 you have completed or the highest Armando, MEd, ADJUNCT TRAINER, ALL) degree you have received? Sex Assigned at Date Recorded Female 07/26/2020 9:06 PM CDT documented as of this encounter Plan of Treatment Upcoming Encounters Date Type Specialty Care Team Description 09/08/2022 Procedure visit Aesthetic Medicine and Juanita Vaz, Surgery SLD EDUCATIONAL AIDE, C.N.P. [address] [place] [phone] (Wo rk) 09/08/2022 Comprehensive Visit Aesthetic Medicine and Lucero Pritchard, Surgery M.DAnali, Ph.D. [address] [place] [phone] (Wo rk) documented as of this encounter [...] on filedocumented in this encounter Care Teams Apparel Rental Clerk Relationship Specialty Start Date End Date Elsewhere, Pcp PCP - General Internal Medicine 07/03/17 documented as of this encounter
--- OUTSIDE RECORDS SUMMARY | 2022-07-30 20:33 | XMS_ITS | Encounter Summary ---
:1945 Author Organization [facility] Address [address] [place] [address] Care Team Providers Name Role Phone Elsewhere, Pcp Primary Care Provider Unavailable Reason for Referral Outpatient (Routine) - Authorized Specialty Diagnoses / Procedures Referred By Contact Refer red To Contact Diagnoses Varicose Vein Lower Extremity With Pain Bilateral Juanita Vaz APRN, [facility] Procedures Sclerotherapy [place] INJ SCLEROSING SOLN MULT VEIN C.N.P. [address] [place] [address] Referral ID Status Reason Start Date Expiration Date Visits V isits Requested Authorized [id number] Authorized 09/16/2021 09/16/2022 1 1 MONITOR Reason for Visit Outpatient (Routine) - Closed Specialty Diagnoses / Procedures Referred By Contact Refer red To Contact Diagnoses Varicose Vein Lower Extremity With Pain Bilateral Juanita Vaz APRN, [facility] Procedures Sclerotherapy [place] INJ SCLEROSING SOLN MULT VEIN C.N.P. [address] [place] [address] Referral ID Status Reason Start Date Expiration Date Visits Requ ested Visits Authorized [id number] Closed 07/22/2021 07/22/2022 2 2 Encounter Details Date Type Department Care Team Description 09/16/2021 Procedure visit [facility] Juanita Vaz Ak ricose Vein Lower Medicine and Surgery CLAUDIA Malone CAnali NAnaliP. Extremity With Pain in [place], [address] [facility] Bilateral (Primary [place], [place] Dx) [address] [facility] [address] [place], [place] [phone] (Work) [phone] Social History Tobacco Use Types Packs/Day Years [...] have completed or the highest Armando, MEd, CREAM BEATER, ALL) degree you have received? Sex Assigned [...] completed successfully: yes Complications: no apparent complications MONITOR documented in this encounter Plan of Treatment Upcoming Encounters Date Type Specialty Care Team Description 09/08/2022 Procedure visit Aesthetic Medicine and Juanita Vaz, Surgery CLAUDIA, C.N.P. [address] [place] [phone] (Charlotte bentley) 09/08/2022 Comprehensive Visit Aesthetic Medicine and Lucero Pritchard Surgery MJayda, Ph.D. [address] [place] [phone] (Charlotte bentley) documented as of this encounter Procedures Procedure Name Priority Date/Time Associated Diagnosis Comme nts SCLEROTHERAPY Routine 09/16/2021 5:31 PM Varicose Vein Lower R esults for this CASE MONITOR Extremity With Pain procedur e are in the Bilateral results section . documented in this encounter Results Sclerotherapy (09/16/2021 5:31 PM CASE MONITOR) Narrative MMODAL - 09/16/2021 5:31 PM CASE MONITOR Juanita aVz APRN, C.NTabby. ? 09/16/2021 ??5:33 PM Sclerotherapy [...] Primary documented in this encounter Care Teams Tinner Automatic Relationship Specialty Start Date End Date Elsewhere, Pcp PCP - General Internal Medicine 07/03/17 documented as of this encounter
--- OUTSIDE RECORDS SUMMARY | 2022-07-30 20:33 | XMS_ITS | Encounter Summary ---
:1945 Author Organization [facility] Address [address] [place] [address] Care Team Providers Name Role Phone Elsewhere, Pcp Primary Care Provider Unavailable Encounter Details Date Type Department Care Team Description 08/15/2021 Orders Only RST PCP [facility] Stephy Giles M.D. [address] [place], [place] [phone] (Wo rk) Social History [...] or relatives? How often do you attend amish or More than 4 times per year 01/28/2021 scientology services? Do you belong to any clubs or Yes 01/28/2021 organizations such as amish groups, unions, fraternal or athletic groups, or [...] have completed or the highest Armando, MEd, OBSTETRIC ASSISTANT, ALL) degree you have received? Sex Assigned at Date Recorded Female 07/26/2020 9:06 PM CDT documented as of this encounter Plan of Treatment Upcoming Encounters Date Type Specialty Care Team Description 09/08/2022 Procedure visit Aesthetic Medicine and Juanita Vaz, Surgery DIRECTOR OF INSTRUCTIONAL TECHNOLOGY, C.N.P. [address] [place] [phone] (Charlotte bentley) 09/08/2022 Comprehensive Visit Aesthetic Medicine Lucero Mckeon, Surgery M.Norma, Ph.D. [address] [place] [phone] (Charlotte rk) documented as of this encounter Visit Diagnoses Not on filedocumented in this encounter Care Teams Server Security Administrator Relationship Specialty Start Date End Date Elsewhere, Pcp PCP - General Internal Medicine 07/03/17 documented as of this encounter
--- OUTSIDE RECORDS SUMMARY | 2022-07-30 20:33 | XMS_ITS | Encounter Summary ---
:1945 Author Organization [facility] Address [address] [place] [address] Care Team Providers Name Role Phone Elsewhere, [...] have completed or the highest Armando, MEd, SERVICE PLANNER, ALL) degree you have received? Sex Assigned at Date Recorded Female 07/26/2020 9:06 PM CDT documented as of this encounter Plan of Treatment Upcoming Encounters Date Type Specialty Care Team Description 09/08/2022 Procedure visit Aesthetic Medicine and Juanita Vaz, Surgery DESKTOP ENGINEER, C.N.P. [address] [place] [phone] (Wo rk) 09/08/2022 Comprehensive Visit Aesthetic Medicine and Lucero Pritchard, Surgery M.DAnali, Ph.D. [address] [place] [phone] (Wo rk) documented as of this encounter [...] on filedocumented in this encounter Care Teams Loom Checker Relationship Specialty Start Date End Date Elsewhere, Pcp PCP - General Internal Medicine 07/03/17 documented as of this encounter
--- OUTSIDE RECORDS SUMMARY | 2022-07-30 20:33 | XMS_ITS | Encounter Summary ---
:1945 Author Organization [facility] Address [address] [place] [address] Care Team Providers Name Role Phone Titus [...] ified documented in this encounter Care Teams Cook Helper Fruit Relationship Specialty Start Date End Date Titus Medina MD PCP - General 09/16/1996 03/17/15 documented as of this encounter
--- OUTSIDE RECORDS SUMMARY | 2022-07-30 20:33 | XMS_ITS | Encounter Summary ---
:1945 Author Organization [facility] Address [address] [place] [address] Care Team Providers Name Role Phone Elsewhere, Pcp Primary Care Provider Unavailable Reason for Referral Outpatient (Routine) - Closed Specialty Diagnoses / Procedures Referred By Contact Refer red To Contact Diagnoses Varicose Vein Lower Extremity With Pain Bilateral Juanita Vaz APRN, [facility] Procedures Sclerotherapy [place] INJ SCLEROSING SOLN MULT VEIN C.N.P. [address] [place] [address] Referral ID Status Reason Start Date Expiration Date Visits Requ ested Visits Authorized [id number] Closed 07/28/2021 07/28/2022 3 3 Encounter Details Date Type Department Care Team Description 07/28/2021 Orders Only Department of Vascular Juanita Vaz, Varicose Vein Lower Medicine in [facility] CLAUDIA, C.N .P. Extremity With Pain [place] [address] [facility] Bilateral (Primary Dx) [address] [place] [phone] Social History Tobacco Use Types Packs/Day Years [...] have completed or the highest Armando, MEd, HISTORY TUTOR, ALL) degree you have received? Sex Assigned at Date Recorded Female 07/26/2020 9:06 PM CDT documented as of this encounter Plan of Treatment Upcoming Encounters Date Type Specialty Care Team Description 09/08/2022 Procedure visit Aesthetic Medicine and Juanita Vaz, Surgery MOTOR ANALYST, C.N.P. [address] [place] [phone] (Charlotte bentley) 09/08/2022 Comprehensive Visit Aesthetic Medicine Lucero Mckeon, Surgery M.DAnali, Ph.D. [address] [place] [phone] (Charlotte bentley) Scheduled Orders Name Type Priority Associated Diagnoses Order S chedule Sclerotherapy Procedures Routine Varicose Vein Lower 3 Occur rences starting Extremity With Pain 07/28/20 21 until Bilateral 07/28/2024 documented as of this encounter Visit Diagnoses Diagnosis Varicose Vein Lower Extremity With Pain Bilateral - Primary documented in this encounter Care Teams Cctv Technician Relationship Specialty Start Date End Date Elsewhere, Pcp PCP - General Internal Medicine 07/03/17 documented as of this encounter
--- OUTSIDE RECORDS SUMMARY | 2022-07-30 20:33 | XMS_ITS | Encounter Summary ---
:1945 Author Organization [facility] Address [address] [place] [address] Care Team Providers Name Role Phone Elsewhere, Pcp Primary Care Provider Unavailable Reason for Referral Outpatient (Routine) - Authorized Specialty Diagnoses / Procedures Referred By Contact Refer red To Contact Diagnoses Varicose Vein Lower Extremity With Pain Bilateral Juanita Vaz APRN, [facility] Procedures Sclerotherapy [place] INJ SCLEROSING SOLN MULT VEIN C.N.P. 200 [place] [address] Referral ID Status Reason Start Date Expiration Date Visits V isits Requested Authorized [id number] Authorized 02/27/2022 02/27/2023 1 1 Reason for Visit Outpatient (Routine) - Closed Specialty Diagnoses / Procedures Referred By Contact Refer red To Contact Diagnoses Varicose Vein Lower Extremity With Pain Bilateral Juanita Vaz APRN, [facility] Procedures Sclerotherapy [place] INJ SCLEROSING SOLN MULT VEIN C.N.P. [address] [place] [phone] Referral ID Status Reason Start Date Expiration Date Visits Requ ested Visits Authorized [id number] Closed 07/28/2021 07/28/2022 3 3 Encounter Details Date Type Department Care Team Description 02/27/2022 Procedure visit [facility] Juanita Vaz [place] ricose Vein Lower Medicine and Surgery CLAUDIA Malone CAnali NAnaliPAnali Extremity With Pain in [place], [address] [facility] Bilateral (Primary [place], [place] Dx) [address] [facility] [address] [place], [place] [phone] (Work) [phone] Social History Tobacco Use Types Packs/Day Years [...] or relatives? How often do you attend tenriism or More than 4 times per year 01/28/2021 adventist services? Do you belong to any clubs or Yes 01/28/2021 organizations such as tenriism groups, unions, fraternal or athletic groups, or [...] have completed or the highest Armando, MEd, METAL FABRICATOR, ALL) degree you have received? Sex Assigned [...] and Juanita Vaz, Surgery CLAUDIA, C.N.P. [address] [place] [phone] (Charlotte bentley) 09/08/2022 Comprehensive Visit Aesthetic Medicine and Lucero Pritchard Surgery MJayda, Ph.D. [address] [place] [phone] (Charlotte bentley) documented as of this encounter [...] Primary documented in this encounter Care Teams Dredge Pipeman Relationship Specialty Start Date End Date Elsewhere, Pcp PCP - General Internal Medicine 07/03/17 documented as of this encounter
--- OUTSIDE RECORDS SUMMARY | 2022-07-30 20:33 | XMS_ITS | Encounter Summary ---
:[address] [facility] Address [address] [place] [address] Care Team Providers Name Role Phone Elsewhere, Pcp Primary Care Provider Unavailable Reason for Referral Outpatient (Routine) - Authorized Specialty Diagnoses / Procedures Referred By Contact Refer red To Contact Diagnoses Varicose Vein Lower Extremity With Pain Bilateral Juanita Vaz APRN, [facility] Procedures Sclerotherapy [place] INJ SCLEROSING SOLN MULT VEIN C.N.P. [address] [place], [place] [phone] Referral ID Status Reason Start Date Expiration Date Visits V isits Requested Authorized [id number] Authorized 04/15/2022 04/15/2023 1 1 Outpatient (Routine) - Authorized Specialty Diagnoses / Procedures Referred By Contact Refer red To Contact Diagnoses Varicose Vein Lower Extremity With Pain Bilateral Juanita Vaz APRN, [facility] Procedures Sclerotherapy [place] INJ SCLEROSING SOLN MULT VEIN C.N.P. [address] [place] [address] Referral ID Status Reason Start Date Expiration Date Visits V isits Requested Authorized [id number] Authorized 04/14/2022 04/14/2023 3 3 Reason for Visit Outpatient (Routine) - Closed Specialty Diagnoses / Procedures Referred By Contact Refer red To Contact Diagnoses Varicose Vein Lower Extremity With Pain Bilateral Juanita Vaz APRN, [place] [facility] Procedures Sclerotherapy [place] INJ SCLEROSING SOLN MULT VEIN C.N.P. [address] [place] [address] Referral ID Status Reason Start Date Expiration Date Visits Requ ested Visits Authorized [id number] Closed 07/28/2021 07/28/2022 3 3 Encounter Details Date Type Department Care Team Description 04/14/2022 Procedure visit [facility] Juanita Vaz N[place] ricose Vein Lower Medicine and Surgery CLAUDIA Malone, C. N.P. Extremity With Pain in [place], [address] [place] [address] Bilateral (Primary [place], [place] Dx) [address] [place] [address] [place], [place] [phone] (Work) [phone] Social History Tobacco Use Types Packs/Day Years [...] have completed or the highest Armando, MEd, SIZING SPONGER, ALL) degree you have received? Sex Assigned [...] Juanita Vaz, Surgery CLAUDIA, C.N.P. [address] [place] [phone] (Wo rk) 09/08/2022 Comprehensive Visit Aesthetic Medicine and Lucero Pritchrad, Surgery Francesca, Ph.D. [address] [place] [phone] (Charlotte rk) Scheduled Orders Name Type Priority [...] Skin documented in this encounter Care Teams Windows Support Engineer Relationship Specialty Start Date End Date Elsewhere, Pcp PCP - General Internal Medicine 07/03/17 documented as of this encounter
--- OUTSIDE RECORDS SUMMARY | 2022-07-30 20:33 | XMS_ITS | Encounter Summary ---
:1945 Author Organization [facility] Address [address] [place] [address] Care Team Providers Name Role Phone Elsewhere, [...] or relatives? How often do you attend caodaism or More than 4 times per year 01/28/2021 yazdanism services? Do you belong to any clubs or Yes 01/28/2021 organizations such as caodaism groups, unions, fraternal or athletic groups, or [...] have completed or the highest Armando, MEd, FLOAT TENDER, ALL) degree you have received? Sex Assigned at Date Recorded Female 07/26/2020 9:06 PM CDT documented as of this encounter Plan of Treatment Upcoming Encounters Date Type Specialty Care Team Description 09/08/2022 Procedure visit Aesthetic Medicine and Juanita Vaz, Surgery SINK MAKER, C.N.P. [address] [place] [phone] (Wo rk) 09/08/2022 Comprehensive Visit Aesthetic Medicine and Lucero Pritchard, Surgery M.DAnali, Ph.D. [address] [place] [phone] (Wo rk) documented as of this encounter Procedures Procedure Name Priority Date/Time Associated Diagnosis Comme nts VASCULAR IMAGE EXAM Routine 09/16/2021 12:00 AM R esults for this SAFETY COUNSELOR procedure are i n the results section. documented in this encounter Results Legs Sclerotherapy-Vascular Image Exam (09/16/2021 12:00 AM SAFETY COUNSELOR) Specimen (Source) Anatomical Location Collection Method / Collectio n Time Received Time / Laterality Volume Narrative IIMS - 09/16/2021 10:48 AM SAFETY COUNSELOR This order has been created and auto-finalized [...] on filedocumented in this encounter Care Teams Reading Coach Relationship Specialty Start Date End Date Elsewhere, Pcp PCP - General Internal Medicine 07/03/17 documented as of this encounter
--- OUTSIDE RECORDS SUMMARY | 2022-07-30 20:33 | XMS_ITS | Encounter Summary ---
:1945 Author Organization [facility] Address [address] [place] [address] Care Team Providers Name Role Phone Titus Medina MD Primary Care Provider Encounter Details Date Type Department Care Team Description 10/27/1993 Office Visit [facility] Pillo King MD Diffuse cystic [address] LINIC mastopathy [address] [place], [place] [phone] (Wo rk) Social History Tobacco Use Types Packs/Day Years Used Date Smoking Tobacco: Never Assessed Sex Assigned at Date Recorded Not on file documented as of this encounter Plan of Treatment Not on filedocumented as of this encounter Visit Diagnoses Diagnosis Diffuse cystic mastopathy documented in this encounter Care Teams Eeo Officer Relationship Specialty Start Date End Date Titus Medina MD PCP - General 09/16/1996 03/17/15 documented as of this encounter
--- OUTSIDE RECORDS SUMMARY | 2022-07-30 20:33 | XMS_ITS | Encounter Summary ---
:1945 Author Organization [facility] Address [address] [place] [address] Care Team Providers Name Role Phone Elsewhere, Pcp Primary Care Provider Unavailable Reason for Visit Reason Comments Follow-up Encounter Details Date Type Department Care Team Description 09/02/2021 Clinical Communication Division of Merrill Harris F ollow-merna Endocrinology in [place], [place] [address] [facility] [address] [place] [phone] Social History Tobacco Use Types Packs/Day Years [...] have completed or the highest Armando, MEd, AIRCRAFT AIR CONDITIONING MECHANIC, ALL) degree you have received? Sex Assigned at Date Recorded Female 07/26/2020 9:06 PM CDT documented as of this encounter Miscellaneous Notes Telephone Encounter - Lea Massey - 09/09/2021 1:51 PM CST Sent POM back to patient. CATION COMMISSIONER Telephone Encounter - Merrill Harris M.D. - 09/02/2021 10:37 AM CST The patient should return for a follow-up appointment in 1 year. I ordered her studies. CATION COMMISSIONER Telephone Encounter - Lea Massey - 09/02/2021 [...] back via portal. [facility] Appointment Office [phone] *reply back to P RST END SCHEDULING* CATION COMMISSIONER documented in this encounter Plan of Treatment Upcoming Encounters Date Type Specialty Care Team Description 09/08/2022 Procedure visit Aesthetic Medicine and Juanita Vaz, Surgery SOLAR POWER INSTALLER, C.N.P. [address] [place] [address] (Wo rk) 09/08/2022 Comprehensive Visit Aesthetic Medicine and Lucero Pritchard, Surgery Francesca, Ph.D. [address] [place] [phone] (Wo rk) documented as of this encounter Visit Diagnoses Not on filedocumented in this encounter Care Teams Certified Maintenance Welder Relationship Specialty Start Date End Date Elsewhere, Pcp PCP - General Internal Medicine 07/03/17 documented as of this encounter
--- OUTSIDE RECORDS SUMMARY | 2022-07-30 20:33 | XMS_ITS | Encounter Summary ---
:1945 Author Organization [facility] Address [address] [place] [address] Care Team Providers Name Role Phone Elsewhere, Pcp Primary Care Provider Unavailable Encounter Details Date Type Department Care Team Description 08/12/2021 Orders Only RST PCP [facility] Stephy Giles M.D. [address] [place], [place] [phone] (Wo rk) Social History [...] have completed or the highest Armando, MEd, POLISHING MACHINE TENDER, ALL) degree you have received? Sex Assigned at Date Recorded Female 07/26/2020 9:06 PM CDT documented as of this encounter Plan of Treatment Upcoming Encounters Date Type Specialty Care Team Description 09/08/2022 Procedure visit Aesthetic Medicine and Juanita Vaz, Surgery RESIDENTIAL COORDINATOR, C.N.P. [address] [place] [phone] (Charlotte bentley) 09/08/2022 Comprehensive Visit Aesthetic Medicine Lucero Mckeon, Surgery M.Norma, Ph.D. [address] [place] [phone] (Charlotte rk) documented as of this encounter Visit Diagnoses Not on filedocumented in this encounter Care Teams Drive Tester Relationship Specialty Start Date End Date Elsewhere, Pcp PCP - General Internal Medicine 07/03/17 documented as of this encounter
--- OUTSIDE RECORDS SUMMARY | 2022-07-30 20:33 | XMS_ITS | Encounter Summary ---
:1945 Author Organization [facility] Address [address] [place] [address] Care Team Providers Name Role Phone Elsewhere, Pcp Primary Care Provider Unavailable Reason for Referral Outpatient (Routine) - Authorized Specialty Diagnoses / Procedures Referred By Contact Refer red To Contact Diagnoses Varicose Vein Lower Extremity With Pain Bilateral [facility] Procedures Sclerotherapy OK INJ SCLEROSING SOLN MULT VEIN C.N.P. [address] [place], [place] [address] Referral ID Status Reason Start Date Expiration Date Visits V isits Requested Authorized [id number] Authorized 11/04/2021 11/04/2022 1 1 K PIECE TACKER Reason for Visit Outpatient (Routine) - Closed Specialty Diagnoses / Procedures Referred By Contact Refer red To Contact Diagnoses Varicose Vein Lower Extremity With Pain Bilateral [facility] Procedures Sclerotherapy [place] INJ SCLEROSING SOLN MULT VEIN C.N.P. [address] [place] [address] Referral ID Status Reason Start Date Expiration Date Visits Requ ested Visits Authorized [id number] Closed 07/22/2021 07/22/2022 2 2 Encounter Details Date Type Department Care Team Description 11/04/2021 Procedure visit [facility] Juanita Vaz Ri ricose Vein Lower Medicine and Surgery CLAUDIA Malone CAnali NAnaliP. Extremity With Pain in [place], [address] [facility] Bilateral (Primary [place], [place] Dx) [address] [facility] [address] [place], [place] [phone] (Work) [phone] Social History Tobacco Use Types Packs/Day Years [...] have completed or the highest Armando, MEd, PARAMEDICAL AIDE, ALL) degree you have received? Sex [...] completed successfully: yes Complications: no apparent complications K PIECE TACKER documented in this encounter Plan of Treatment Upcoming Encounters Date Type Specialty Care Team Description 09/08/2022 Procedure visit Aesthetic Medicine and Juanita Vaz, Surgery CLAUDIA, C.N.P. [address] [place] [phone] (Charlotte bentley) 09/08/2022 Comprehensive Visit Aesthetic Medicine Lucero Mckeon, Surgery MJayda, Ph.D. [address] [place] [phone] (Charlotte bentley) documented as of this encounter Procedures Procedure Name Priority Date/Time Associated Diagnosis Comme nts SCLEROTHERAPY Routine 11/04/2021 10:21 AM Varicose Vein Lower Results for this SHANK PIECE TACKER Extremity With Pain procedur e are in the Bilateral results section . documented in this encounter Results Sclerotherapy (11/04/2021 10:21 AM SHANK PIECE TACKER) Narrative MMODAL - 11/04/2021 10:21 AM SHANK PIECE TACKER Juanita Vaz APRN C.N.P. ? 11/04/2021 12:17 [...] Primary documented in this encounter Care Teams It Business Process Architect Relationship Specialty Start Date End Date Elsewhere, Pcp PCP - General Internal Medicine 07/03/17 documented as of this encounter
--- OUTSIDE RECORDS SUMMARY | 2022-07-30 20:33 | XMS_ITS | Encounter Summary ---
:1945 Author Organization [facility] Address [address] [place] [address] Care Team Providers Name Role Phone Elsewhere, Pcp Primary Care Provider Unavailable Reason for Referral Specialty Diagnoses / Procedures Referred By Contact Refer red To Contact Stephy Giles M.D. [facility] [address] [place] [phone] Referral ID Status Reason Start Date Expiration Date Visits Requ ested Visits Authorized S POLISHER Encounter Details Date Type Department Care Team Description 08/12/2021 Orders Only RST PCP [facility] Stephy Giles M.D. [address] [place], [place] [phone] (Wo rk) Social History [...] More than 4 times per year 01/28/2021 pentecostalism services? Do you belong to any clubs [...] have completed or the highest Armando, MEd, CSW, ALL) degree you have received? Sex Assigned at Date Recorded Female 07/26/2020 9:06 PM CDT documented as of this encounter Plan of Treatment Upcoming Encounters Date Type Specialty Care Team Description 09/08/2022 Procedure visit Aesthetic Medicine and Juanita Vaz, Surgery FOUNDRY METALLURGIST, C.N.P. [address] [place] [phone] (Wo rk) 09/08/2022 Comprehensive Visit Aesthetic Medicine Lucero Mckeon, Surgery M.D., Ph.D. [address] [place] [phone] (Wo rk) Scheduled Referrals Name Type Priority Associated Order Schedule Diagnoses Covid immunization Outpatient Referral Routine Ex pected: office visit Booster 021 (Approximate), Expires: 08/12/2022 documented as of this encounter Visit Diagnoses Not on filedocumented in this encounter Care Teams Tinsel Machine Operator Relationship Specialty Start Date End Date Elsewhere, Pcp PCP - General Internal Medicine 07/03/17 documented as of this encounter
--- OUTSIDE RECORDS SUMMARY | 2022-07-30 20:33 | XMS_ITS | Encounter Summary ---
:1945 Author Organization [facility] Address [address] [place] [address] Care Team Providers Name Role Phone Elsewhere, Pcp Primary Care Provider Unavailable Reason for Visit Outpatient (Routine) - Authorized Specialty Diagnoses / Procedures Referred By Contact Refer red To Contact Diagnoses Varicose Vein Lower Extremity With Pain Bilateral Juanita Vaz APRN, [facility] Procedures Sclerotherapy [place] INJ SCLEROSING SOLN MULT VEIN C.N.P. [address] [place] [address] Referral ID Status Reason Start Date Expiration Date Visits V isits Requested Authorized [id number] Authorized 04/14/2022 04/14/2023 3 3 Encounter Details Date Type Department Care Team Description 05/26/2022 Procedure visit [facility] Juanita Vaz ricose Vein Lower Medicine and Surgery CLAUDIA Malone, C. N.P. Extremity With Pain in [address] Bilateral [place], [place] [address] [place] [phone] [place], [place] [phone] (Work) [phone] Social History Tobacco Use Types Packs/Day Years [...] or relatives? How often do you attend episcopal or More than 4 times per year 01/28/2021 sabianist services? Do you belong to any clubs or Yes 01/28/2021 organizations such as episcopal groups, unions, fraternal or athletic groups, or [...] have completed or the highest Armando, MEd, MANAGER SOCIAL, ALL) degree you have received? Sex Assigned at Date Recorded Female 07/26/2020 9:06 PM CDT documented as of this encounter Procedure Notes Juanita aVz APRN, C.N.P. - 05/26/2022 11:00 AM CDTAssociated [...] and Juanita Vaz, Surgery CLAUDIA, C.N.P. [address] [place] [phone] (Wo rk) 09/08/2022 Comprehensive Visit Aesthetic Medicine and Lucero Pritchard, Surgery MJayda, Ph.D. [address] [place] [phone] (Wo rk) documented as of this encounter [...] Bilateral documented in this encounter Care Teams Mobile Lab Technician Relationship Specialty Start Date End Date Elsewhere, Pcp PCP - General Internal Medicine 07/03/17 documented as of this encounter
--- OUTSIDE RECORDS SUMMARY | 2022-07-30 20:33 | XMS_ITS | Encounter Summary ---
:1945 Author Organization [facility] Address [address] [place] [address] Care Team Providers Name Role Phone Elsewhere, Pcp Primary Care Provider Unavailable Reason for Referral Outpatient (Routine) - Closed Specialty Diagnoses / Procedures Referred By Contact Refer red To Contact Diagnoses Screening Mammogram Breast Cancer Merrill Harris M.D. [facility] Procedures BI Breast Screening Bilateral with Tomosynthesis [address] [place] [address] Referral ID Status Reason Start Date Expiration Date Visits Requ ested Visits Authorized [id number] Closed 11/06/2021 11/06/2022 1 1 NOLOGY AND ENGINEERING TEACHER Reason for Visit Reason Comments mammogram Encounter Details Date Type Department Care Team Description 11/06/2021 Clinical Communication Division of Merrill Harris m ammogram Endocrinology in M.DAnali [place], [place] [address] [facility] [address] [place] [phone] Social History Tobacco Use Types Packs/Day Years [...] have completed or the highest Armando, MEd, SUPERINTENDENT SANITATION, ALL) degree you have received? Sex Assigned at Date Recorded Female 07/26/2020 9:06 PM CDT documented as of this encounter Miscellaneous Notes Telephone Encounter - Lea Massey - 11/07/2021 11:09 AM CST Patient is scheduled. NOLOGY AND ENGINEERING TEACHER Telephone Encounter - Merrill Harris M.D. - 11/06/2021 1:19 PM CST I signed the order. Thank you. NOLOGY AND ENGINEERING TEACHER Telephone Encounter - Lucero Thompson - 11/06/2021 12:[address] Harris, Pt is needing to schedule her mammogram, as she received a letter from [facility] stating it was time. Last one was completed 09/10/20. I have pended order for you to review and sign. Thank you Lucero Tate Please route your response to RST END Scheduling pool NOLOGY AND ENGINEERING TEACHER documented in this encounter Plan of Treatment Upcoming Encounters Date Type Specialty Care Team Description 09/08/2022 Procedure visit Aesthetic Medicine and Juanita Vaz, Surgery PLUMBING DESIGNER, C.N.P. [address] [place] [phone] (Charlotte bentley) 09/08/2022 Comprehensive Visit Aesthetic Medicine and Lucero Pritchard, Surgery MJayda, Ph.D. [address] [place] [phone] (Charlotte bentley) documented as of this encounter Results BI Breast Screening Bilateral with Tomosynthesis (11/13/2021 12:22 PM TECHNOLOGY AND ENGINEERING TEACHER) Anatomical Region Laterality Modality Breast, Breast Imaging RST LOS, Breast Imaging ARZ LOS, [facility] st Bilateral Mammography Imaging FLA LOS Specimen (Source) Anatomical Collection Method Collection Time Re ceived Time Location / / Volume Laterality 11/13/2021 2:16 PM TECHNOLOGY AND ENGINEERING TEACHER Impressions 11/13/2021 2:43 PM TECHNOLOGY AND ENGINEERING TEACHER Benign. RECOMMENDATION: ??Annual Screening Mammo gram ASSESSMENT: ??BI-RADS: 2: Benign. Narrative 11/13/2021 2:43 PM TECHNOLOGY AND ENGINEERING TEACHER EXAM: ??BI BREAST SCREENING BILATERAL WITH TOMOSYNTHESIS Current study was evaluated with a [employer] Aided Detection (CAD) system. INDICATION: ??Screening mammogram. [...] TOMOSYNTHESIS Current study was evaluated with a [employer] Aided Detection (CAD) system. INDICATION: Screening mammogram. [...] Cancer documented in this encounter Care Teams Cryptographic Machine Operator Relationship Specialty Start Date End Date Elsewhere, Pcp PCP - General Internal Medicine 07/03/17 documented as of this encounter
--- OUTSIDE RECORDS SUMMARY | 2022-07-30 20:33 | XMS_ITS | Encounter Summary ---
:1945 Author Organization [facility] Address [address] [place] [address] Care Team Providers Name Role Phone Elsewhere, Pcp Primary Care Provider Unavailable Reason for Visit Reason Comments Med Refill Encounter Details Date Type Department Care Team Description 08/27/2021 [facility] [place], [place] [address] [facility] [address] [place] [address] [place] [phone] Social History Tobacco Use Types Packs/Day Years [...] have completed or the highest Armando, Cora, GRAPHICS SOFTWARE ENGINEER, ALL) degree you have received? Sex Assigned at Date Recorded Female 07/26/2020 9:06 PM CDT documented as of this encounter Miscellaneous Notes Telephone Encounter - Alma Rosa Regalado R.N., CDCES - 09/01/2021 2:16 PM FIBER WORKER Prescription renewal request did not meet nurse protocol because: patient has not been seen within the past 12 months Protocol utilized: Prescription Renewal Request for Medications: Division of Endocrinology, Diabetes, Metabolism and Nutrition. R WORKER documented in this encounter Plan of Treatment Upcoming Encounters Date Type Specialty Care Team Description 09/08/2022 Procedure visit Aesthetic Medicine and Juanita Vaz, Surgery FULL TIME PARAMEDIC, C.N.P. [address] [place] [phone] (Wo rk) 09/08/2022 Comprehensive Visit Aesthetic Medicine Lucero Mckeon, Surgery M.D., Ph.D. [address] [place] [phone] (Wo rk) documented as of this encounter Visit Diagnoses Not on filedocumented in this encounter Care Teams Farm Tractor Operator Relationship Specialty Start Date End Date Elsewhere, Pcp PCP - General Internal Medicine 07/03/17 documented as of this encounter
--- OUTSIDE RECORDS SUMMARY | 2022-07-30 20:33 | XMS_ITS | Encounter Summary ---
:1945 Author Organization [facility] Address [address] [place] [address] Care Team Providers Name Role Phone Elsewhere, Pcp Primary Care Provider Unavailable Reason for Referral Outpatient (Routine) - Authorized Specialty Diagnoses / Procedures Referred By Contact Refer red To Contact Diagnoses Varicose Vein Lower Extremity With Pain Bilateral [facility] Procedures Sclerotherapy [place] INJ SCLEROSING SOLN MULT VEIN C.N.P. [address] [place], [place] [address] Referral ID Status Reason Start Date Expiration Date Visits V isits Requested Authorized [id number] Authorized 01/09/2022 01/09/2023 1 1 Reason for Visit Outpatient (Routine) - Closed Specialty Diagnoses / Procedures Referred By Contact Refer red To Contact Diagnoses Varicose Vein Lower Extremity With Pain Bilateral [facility] Procedures Sclerotherapy [place] INJ SCLEROSING SOLN MULT VEIN C.N.P. [address] [place], [place] [phone] Referral ID Status Reason Start Date Expiration Date Visits Requ ested Visits Authorized [id number] Closed 07/28/2021 07/28/2022 3 3 Encounter Details Date Type Department Care Team Description 01/09/2022 Procedure visit [facility] Juanita Vaz Ia ricose Vein Lower Medicine and Surgery CLAUDIA Malone C. NJuana Extremity With Pain in [place], [facility] [address] [facility] Bilateral (Primary [place], [place] Dx) [address] [facility] [address] [place], [place] [phone] (Work) [phone] Social History Tobacco Use Types Packs/Day Years [...] have completed or the highest Armando, MEd, BABCOCK TESTER, ALL) degree you have received? Sex Assigned [...] and Juanita Vaz, Surgery CLAUDIA, C.N.P. [address] [place] [phone] (Charlotte bentley) 09/08/2022 Comprehensive Visit Aesthetic Medicine and Lucero Pritchard, Surgery MJayda, Ph.D. [address] [place] [phone] (Charlotte bentley) documented as of this encounter [...] Primary documented in this encounter Care Teams Senior Dynamics Crm Developer Relationship Specialty Start Date End Date Elsewhere, Pcp PCP - General Internal Medicine 07/03/17 documented as of this encounter
--- OUTSIDE RECORDS SUMMARY | 2022-07-30 20:33 | XMS_ITS | Clinical Summary ---
:[address] [facility] Address [address] [place] [address] Care Team Providers Name Role Phone Elsewhere, Pcp Primary Care Provider Unavailable Source Comments Patient records contain information from all sites at [facility]. For routine questions regarding patient records, call [phone] during business hours, M-F 8:00 AM - 5:00 PM Central Time. Record requests for emergency care only can be directed to [phone] at any time[address] Allergies Active Allergy Reactions Severity Noted Date [...] (glucosamine-chondroitin) daily. 1,500-1,200 mg/30 mL liquid omega-3 ywl-yxw-giqb oil Take 1 capsule by mouth 3 [...] Added automatically from request for tiffanie delano [id number] Encounters Date Type Specialty Care Team Description 07/24/2022 Procedure visit Aesthetic Medicine Juanita Vaz Vari cose Vein Lower Extremity With Pain Bilateral; and Surgery R, AGILE JAVA DEVELOPER, C.N.P. Wrinkled Ski n 07/24/2022 Ancillary Procedure 05/26/2022 Procedure visit Aesthetic Medicine Juanita Vaz Vari cose Vein Lower and Surgery R, AGILE JAVA DEVELOPER, C.N.P. Extremity Wi th Pain Bilateral 05/26/2022 [...] have completed or the highest Armando, MEd, SUPERVISOR CIGAR MAKING HAND, ALL) degree you have received? Sex Assigned at Date Recorded Female 07/26/2020 9:06 PM CDT Last Filed Vital Signs Vital Sign Reading Time Taken Comments Blood Pressure 126/77 04/14/2021 7:46 AM CDT Pulse 66 04/14/2021 7:46 AM CDT Temperature 37 ??C (98.6 ??F) 09/12/2020 1:09 PM MEETING PLANNER Respiratory Rate 16 09/12/2020 1:09 PM MEETING PLANNER Oxygen Saturation 100% 09/12/2020 1:09 PM MEETING PLANNER Inhaled Oxygen Concentration - - Weight 67.7 kg (149 lb 4 oz) 03/04/2021 12:55 PM CDT Height 166 cm (5' 5.35) 09/11/2020 6:07 AM MEETING PLANNER Body Mass Index 24.57 09/11/2020 6:07 AM MEETING PLANNER Plan of Treatment Upcoming Encounters Date Type Specialty Care Team Description 09/08/2022 Procedure visit Aesthetic Medicine and Juanita Vaz, Surgery AGILE JAVA DEVELOPER, C.N.P. [address] [place] [phone] (Charlotte bentley) 09/08/2022 Comprehensive Visit Aesthetic Medicine and Lucero Pritchard, Surgery M.Norma, Ph.D. [address] [place] [phone] (Wo rk) Health Maintenance Due Date Last [...] history exists Medical Devices Implanted Type Area Foot Drill Operator Device Shelf Model / Identifier Expiration Serial / Date Lot Cmnt Bn Hi Visc Pmma 40 - [id number] Bone Cement Left: Aubrey 6191-1-001 / Implanted: Qty: 1 on 09/11/2020 by Ángel Quesada M.D. at [facility] Hip / Hip Scrw Emp Acet 6.5x35 - [id number] Hardware Left: DJO Globa l 07/30/2026 [id number] / Implanted: Qty: 1 on 09/11/2020 by Ángel Quesada M.D. at [facility] e.g. Hip / pins/screws/ [id number] rods Hip Implant Hip Implant Hip Description: Right Hip Replacement Hip Head Delta Cer 36mm, Neut - [id number] Hip Implant Left: Hip Encore 07/09/2025 [id number] / Implanted: Qty: 1 on 09/11/2020 by Ángel Quesada M.D. at [facility] Medical Cherie / [id number] Ocular Lens-07/05/2018 Ocular Lens Bilateral: Implanted: 07/05/2018 (Quantity not on file) Eye Bladder Stimulator-05/19/2011 Sacral Nerve Bladder [id number] / Implanted: Qty: 1 on 05/19/2011 Stimulator [id number] / Stimulator Other Stimulator Other Bladder Procedures [...] Phone Address Typ e / Group Dates [facility] MEDICARE [id number] 2021-Prese [phone] [address] [address] PPO COMPLETE nt [address] [place] [address] Advance Directives For more information, please contact: [phone] Documents on File Type Date Recorded Patient Surveillance Director Explanati on Advance Directives 06/25/2016 12:00 AM Beibamboo doc ument. See document viewer. Advance Directives 05/24/2015 12:00 AM Beibamboo doc ument. See document viewer. Latest Code Status on File Code Status Date Activated Date Inactivated Comments Full Code 09/11/2020 12:44 PM 09/12/2020 4:25 PM Question Answer Comments Full Code: Discussed Care Teams Senior Courtroom Clerk Relationship Specialty Start Date End Date Elsewhere, Pcp PCP - General Internal Medicine 07/03/17
--- OUTSIDE RECORDS SUMMARY | 2022-07-30 20:33 | XMS_ITS | Encounter Summary ---
:1945 Author Organization [facility] Address [address] [place] [address] Care Team Providers Name Role Phone Elsewhere, [...] More than 4 times per year 01/28/2021 episcopal services? Do you belong to any clubs [...] have completed or the highest Armando, MEd, OIL WELL FISHING TOOL OPERATOR, ALL) degree you have received? Sex Assigned at Date Recorded Female 07/26/2020 9:06 PM CDT documented as of this encounter Plan of Treatment Upcoming Encounters Date Type Specialty Care Team Description 09/08/2022 Procedure visit Aesthetic Medicine and Juanita Vaz, Surgery PULMONARY PHYSICAL THERAPIST, C.N.P. [address] [place] [phone] (Wo rk) 09/08/2022 Comprehensive Visit Aesthetic Medicine and Lucero Pritchard, Surgery M.DAnali, Ph.D. [address] [place] [phone] (Wo rk) documented as of this encounter [...] on filedocumented in this encounter Care Teams Parimutuel Ticket Checker Relationship Specialty Start Date End Date Elsewhere, Pcp PCP - General Internal Medicine 07/03/17 documented as of this encounter
--- OUTSIDE RECORDS SUMMARY | 2022-07-30 20:33 | XMS_ITS | Encounter Summary ---
:1945 Author Organization [facility] Address [address] [place] [address] Care Team Providers Name Role Phone Elsewhere, Pcp Primary Care Provider Unavailable Reason for Referral Outpatient (Routine) - Closed Specialty Diagnoses / Procedures Referred By Contact Refer red To Contact Diagnoses Screening Mammogram Breast Cancer Merrill Harris M.D. [facility] Procedures BI Breast Screening Bilateral with Tomosynthesis [address] [place], [place] [phone] Referral ID Status Reason Start Date Expiration Date Visits Requ ested Visits Authorized [id number] Closed 11/06/2021 11/06/2022 1 1 NCE INTERN Reason for Visit Outpatient (Routine) - Closed Specialty Diagnoses / Procedures Referred By Contact Refer red To Contact Diagnoses Screening Mammogram Breast Cancer Merrill Harris M.D. [facility] Procedures BI Breast Screening Bilateral with Tomosynthesis [address] [place], [place] [phone] Referral ID Status Reason Start Date Expiration Date Visits Requ ested Visits Authorized [id number] Closed 11/06/2021 11/06/2022 1 1 Encounter Details Date Type Department Care Team Description 11/13/2021 Hospital Encounter Department of Merrill Harris Mammogram Radiology javier Perera M.D. Breast Cancer [place], [place] [address] [facility] [address] [place] [phone] Social History Tobacco Use Types Packs/Day Years [...] have completed or the highest Armando, MEd, VARNISH FILTERER, ALL) degree you have received? Sex Assigned [...] A DAY TOPICALLY CORNERS OF MOUTH omega-3 skf-ywd-lbvu oil Take 1 capsule by mouth 3 [...] visit Aesthetic Medicine and Juanita Vaz, Surgery STRAIGHTEDGE MACHINE OPERATOR HELPER, C.N.P. [address] [place] [phone] (Wo rk) 09/08/2022 Comprehensive Visit Aesthetic Medicine Lucero Mckeon, Surgery M.Norma, Ph.D. [address] [place] [phone] (Wo rk) documented as of this encounter Procedures Procedure Name Priority Date/Time Associated Comments Diagnosis BI BREAST SCREENING RAD - Routine 11/13/2021 12:22 Screening Res ults for BILATERAL WITH (most inpatients PM FINANCE INTERN Mammogram Breast this procedure TOMOSYNTHESIS and all Cancer are in the outpatients) results section. documented in this encounter Results BI Breast Screening Bilateral with Tomosynthesis (11/13/2021 12:22 PM FINANCE INTERN) Anatomical Region Laterality Modality Breast, Breast Imaging RST LOS, Breast Imaging ARZ LOS, [address] Bilateral Mammography Imaging FLA LOS Specimen (Source) Anatomical Collection Method Collection Time Re ceived Time Location / / Volume Laterality 11/13/2021 2:16 PM FINANCE INTERN Impressions 11/13/2021 2:43 PM FINANCE INTERN Benign. RECOMMENDATION: ??Annual Screening Mammo gram ASSESSMENT: ??BI-RADS: 2: Benign. Narrative 11/13/2021 2:43 PM FINANCE INTERN EXAM: ??BI BREAST SCREENING BILATERAL WITH TOMOSYNTHESIS Current study was evaluated with a Smashrunu ter Aided Detection (CAD) system. INDICATION: ??Screening [...] Cancer documented in this encounter Care Teams Forensic Sergeant Relationship Specialty Start Date End Date Elsewhere, Pcp PCP - General Internal Medicine 07/03/17 documented as of this encounter
--- OUTSIDE RECORDS SUMMARY | 2022-07-30 20:33 | XMS_ITS | Encounter Summary ---
:1945 Author Organization [facility] Address [address] [place] [address] Care Team Providers Name Role Phone Elsewhere, [...] have completed or the highest Armando, MEd, SURTASS ANALYST, ALL) degree you have received? Sex Assigned at Date Recorded Female 07/26/2020 9:06 PM CDT documented as of this encounter Plan of Treatment Upcoming Encounters Date Type Specialty Care Team Description 09/08/2022 Procedure visit Aesthetic Medicine and Juanita Vaz, Surgery MULTINEEDLE SHIRRER, C.N.P. [address] [place] [phone] (Wo rk) 09/08/2022 Comprehensive Visit Aesthetic Medicine and Lucero Pritchard, Surgery M.DAnali, Ph.D. [address] [place] [phone] (Wo rk) documented as of this encounter Procedures Procedure Name Priority Date/Time Associated Diagnosis Comme nts VASCULAR IMAGE EXAM Routine 11/04/2021 12:00 AM R esults for this ADULT NEUROLOGIST procedure are i n the results section. documented in this encounter Results Legs-Vascular Image Exam (11/04/2021 12:00 AM ADULT NEUROLOGIST) Specimen (Source) Anatomical Location Collection Method / Collectio n Time Received Time / Laterality Volume Narrative IIMS - 11/04/2021 1:16 PM ADULT NEUROLOGIST This order has been created and auto-finalized [...] on filedocumented in this encounter Care Teams Process Maintenance Technician Relationship Specialty Start Date End Date Elsewhere, Pcp PCP - General Internal Medicine 07/03/17 documented as of this encounter
--- OUTSIDE RECORDS SUMMARY | 2022-07-30 20:34 | XMS_ITS | Encounter Summary ---
:1945 Author Organization [facility] Address [address] [place] [address] Care Team Providers Name Role Phone Elsewhere, Pcp Primary Care Provider Unavailable Encounter Details Date Type Department Care Team Description 01/09/2021 Admin Visit [facility] [address] [place] [phone] Social History Tobacco Use Types Packs/Day [...] have completed or the highest Armando, MEd, SCRAP YARD WORKER, ALL) degree you have received? Sex Assigned at Date Recorded Female 07/26/2020 9:06 PM CDT documented as of this encounter Plan of Treatment Upcoming Encounters Date Type Specialty Care Team Description 09/08/2022 Procedure visit Aesthetic Medicine and Juanita Vaz, Surgery EVALUATION ANALYST, C.N.P. [address] [place] [address] (Wo rk) 09/08/2022 Comprehensive Visit Aesthetic Medicine Lucero Mckeon, Surgery M.DAnali, Ph.D. [address] [place] [address] (Wo rk) documented as of this encounter Visit Diagnoses Not on filedocumented in this encounter Care Teams Facilities Assistant Relationship Specialty Start Date End Date Elsewhere, Pcp PCP - General Internal Medicine 07/03/17 documented as of this encounter
--- OUTSIDE RECORDS SUMMARY | 2022-07-30 20:34 | XMS_ITS | Encounter Summary ---
:[address] [facility] Address [address] [place] [address] Care Team Providers Name Role Phone Elsewhere, Pcp Primary Care Provider Unavailable Reason for Visit Outpatient (Routine) - Closed Specialty Diagnoses / Procedures Referred By Contact Refer red To Contact Diagnoses Varicose Vein Lower Extremity With Pain Bilateral [facility] Procedures Sclerotherapy C.N.P. [address] [place] [phone] Referral ID Status Reason Start Date Expiration Date Visits Requ ested Visits Authorized [id number] Closed 08/01/2020 08/01/2021 5 5 Encounter Details Date Type Department Care Team Description 04/14/2021 Procedure visit Department of Juanita Vaz Varicose Vein Lower Vascular Medicine in R, CLAUDIA, C. N.P. Extremity With Pain [place], [place] [address] [facility] Bilateral (Primary [address] [place] [address] Dx) [place] [phone] Social History Tobacco Use Types Packs/Day Years [...] have completed or the highest Armando, MEd, RIPRAP WORKER, ALL) degree you have received? Sex [...] in this encounter Procedure Notes Juanita Vaz, EASTER BUNNY, C.N.P. - 04/14/2021 7:45 AM CDTAssociated Order(s): [...] of legs were obtained after consent using [facility] approvedand secure device and loaded to [...] cc Number of injections: Approximately 75-100 injections [place] used: 30 gauge Complications: No apparent complications [...] Juanita Vaz, Surgery CLAUDIA, C.N.P. [address] [place] [phone] (Charlotte bentley) 09/08/2022 Comprehensive Visit Aesthetic Lucero Arita Surgery M.D., Ph.D. [address] [place] [phone] (Charlotte bentley) documented as of this encounter [...] of legs were obtained after consent using [facility] approved [employer] device and loaded to patient's medical record. [...] Number of injections: ??Approximately 75 -100 injections [place] used: 30 gauge Complications: ??No apparent complicatio [...] effect documented in this encounter Care Teams Checker And Packer Relationship Specialty Start Date End Date Elsewhere, Pcp PCP - General Internal Medicine 07/03/17 documented as of this encounter
--- OUTSIDE RECORDS SUMMARY | 2022-07-30 20:34 | XMS_ITS | Encounter Summary ---
:1945 Author Organization [facility] Address [address] [place] [address] Care Team Providers Name Role Phone Elsewhere, Pcp Primary Care Provider Unavailable Reason for Visit Outpatient (Routine) - Closed Specialty Diagnoses / Procedures Referred By Contact Refer red To Contact Diagnoses Varicose Vein Lower Extremity With Pain Bilateral [facility] Procedures Sclerotherapy C.N.P. [address] [place] [phone] Referral ID Status Reason Start Date Expiration Date Visits Requ ested Visits Authorized [id number] Closed 08/01/2020 08/01/2021 5 5 Encounter Details Date Type Department Care Team Description 01/09/2021 Procedure visit Department of Juanita Vaz Varicose Vein Lower Vascular Medicine in R, CLAUDIA, C. N.P. Extremity With Pain [place], [place] [address] [facility] Bilateral (Primary [address] [place] [address] Dx) [place] [phone] [phone] Social History Tobacco Use Types Packs/Day Years [...] More than 4 times per year 01/28/2021 latter-day services? Do you belong to any clubs [...] have completed or the highest Armando, MEd, WELFARE SERVICE AIDE, ALL) degree you have received? Sex [...] Body Mass Index 24.31 09/11/2020 6:07 AM COOLER CONVEYOR LOADER documented in this encounter Procedure Notes Radha [...] of legs were obtained after consent using [facility] approvedand secure device and loaded to [...] thighs. Number of injections: Approximately 75-100 injections [place] used: 30 gauge Complications: No apparent complications [...] and Juanita Vaz, Surgery CLAUDIA, C.N.P. [address] [place] [phone] (Charlotte rk) 09/08/2022 Comprehensive Visit Aesthetic Medicine and Lucero Pritchard, Surgery Francesca, Ph.D. [address] [place] [phone] (Charlotte bentley) documented as of [...] of legs were obtained after consent using [facility] approved and s ecure device and [...] Number of injections: ??Approximately 75 -100 injections [place] used: 30 gauge Complications: ??No apparent complicatio [...] dose documented in this encounter Care Teams Source Water Protection Specialist Relationship Specialty Start Date End Date Elsewhere, Pcp PCP - General Internal Medicine 07/03/17 documented as of this encounter
--- OUTSIDE RECORDS SUMMARY | 2022-07-30 20:34 | XMS_ITS | Encounter Summary ---
:1945 Author Organization [facility] Address [address] [place] [address] Care Team Providers Name Role Phone Elsewhere, [...] have completed or the highest Armando, MEd, MOLDER SHOULDER PAD, ALL) degree you have received? Sex Assigned at Date Recorded Female 07/26/2020 9:06 PM CDT documented as of this encounter Plan of Treatment Upcoming Encounters Date Type Specialty Care Team Description 09/08/2022 Procedure visit Aesthetic Medicine and Juanita Vaz, Surgery NUB CARD TENDER, C.N.P. [address] [place] [phone] (Wo rk) 09/08/2022 Comprehensive Visit Aesthetic Medicine and Lucero Pritchard, Surgery M.DAnali, Ph.D. [address] [place] [phone] (Wo rk) documented as of this encounter [...] on filedocumented in this encounter Care Teams Hide Worker Relationship Specialty Start Date End Date Elsewhere, Pcp PCP - General Internal Medicine 07/03/17 documented as of this encounter
--- OUTSIDE RECORDS SUMMARY | 2022-07-30 20:34 | XMS_ITS | Encounter Summary ---
:1945 Author Organization [facility] Address [address] [place] [address] Care Team Providers Name Role Phone Elsewhere, Pcp Primary Care Provider Unavailable Encounter Details Date Type Department Care Team Description 01/28/2021 Ancillary Department of Schornack, Endothelial Co rneal Procedure Ophthalmology in Yue Vera O.D. Dystrophy Bilateral [place], [place] [address] [facility] [address] [place] [phone] Social History Tobacco Use Types Packs/Day Years [...] More than 4 times per year 01/28/2021 confucianist services? Do you belong to any clubs [...] have completed or the highest Armando, MEd, TRIP FOLLOWER, ALL) degree you have received? Sex Assigned at Date Recorded Female 07/26/2020 9:06 PM CDT documented as of this encounter Plan of Treatment Upcoming Encounters Date Type Specialty Care Team Description 09/08/2022 Procedure visit Aesthetic Medicine and Juanita Vaz, Surgery TUBE BENDING MACHINE OPERATOR, C.N.P. [address] [place] [address] (Wo rk) 09/08/2022 Comprehensive Visit Aesthetic Medicine Lucero Mckeon, Surgery M.Trever., Ph.D. [address] [place] [address] (Wo rk) documented as of this encounter [...] Eye Reliability was good. Notes Right eye: ??[place] in normal position, tr fermin flattening of isopachs, no significant central posterior elevation changes Left eye: ??[place] in normal position, mil d distortion of isopachs, no central posterior elevation changes, but superior changes are present. 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
--- OUTSIDE RECORDS SUMMARY | 2022-07-30 20:34 | XMS_ITS | Encounter Summary ---
:1945 Author Organization [facility] Address [address] [place] [address] Care Team Providers Name Role Phone Elsewhere, [...] have completed or the highest Armando, MEd, PLANT HEALTH MANAGER, ALL) degree you have received? Sex Assigned at Date Recorded Female 07/26/2020 9:06 PM CDT documented as of this encounter Plan of Treatment Upcoming Encounters Date Type Specialty Care Team Description 09/08/2022 Procedure visit Aesthetic Medicine and Juanita Vaz, Surgery BARKER OPERATOR, C.N.P. [address] [place] [phone] (Wo rk) 09/08/2022 Comprehensive Visit Aesthetic Medicine and Lucero Pritchard, Surgery M.DAnali, Ph.D. [address] [place] [phone] (Wo rk) documented as of this encounter [...] on filedocumented in this encounter Care Teams Filtration Operator Relationship Specialty Start Date End Date Elsewhere, Pcp PCP - General Internal Medicine 07/03/17 documented as of this encounter
--- OUTSIDE RECORDS SUMMARY | 2022-07-30 20:34 | XMS_ITS | Encounter Summary ---
:1945 Author Organization [facility] Address [address] [place] [address] Care Team Providers Name Role Phone Elsewhere, Pcp Primary Care Provider Unavailable Reason for Visit Outpatient (Routine) - Closed Specialty Diagnoses / Procedures Referred By Contact Refer red To Contact Diagnoses Varicose Vein Lower Extremity With Pain Bilateral [facility] Procedures Sclerotherapy C.N.P. [address] [place] [address] Referral ID Status Reason Start Date Expiration Date Visits Requ ested Visits Authorized [id number] Closed 08/01/2020 08/01/2021 5 5 Encounter Details Date Type Department Care Team Description 03/04/2021 Procedure visit Department of Juanita Vaz Varicose Vein Lower Vascular Medicine in R, CLAUDIA, C. N.P. Extremity With Pain [place], [place] [address] [facility] Bilateral (Primary [address] [place] [address] Dx) [place] [phone] Social History Tobacco Use Types Packs/Day Years [...] have completed or the highest Armando, MEd, STRAW BALER, ALL) degree you have received? Sex Assigned [...] Body Mass Index 24.57 09/11/2020 6:07 AM NETWORK DEVELOPMENT COORDINATOR documented in this encounter Procedure Notes Juanita [...] were obtained after consent using [facility] approvedand secure device and loaded to patient's medical record. Brief History: Ms. Sheikh returns for a repeated session of sclerotherapy in the setting of continued varicose veins with pain bilateral lower extremities. Preparation of legs: Agent used: Isopropyl ETOH was used to cleanse the legs Agent used: Polidocanol 0.2% injecting a total of 22 cc Number of injections: Approximately 50-75 injections [place] used: 30 gauge Complications: No apparent complications [...] and Juanita Vaz, Surgery CLAUDIA, C.N.P. [address] [place] [phone] (Charlotte bentley) 09/08/2022 Comprehensive Visit Aesthetic Lucero Arita Surgery M.D., Ph.D. [address] [place] [phone] (Charlotte bentley) documented as of this encounter [...] effect documented in this encounter Care Teams Medical Research Tech Relationship Specialty Start Date End Date Elsewhere, Pcp PCP - General Internal Medicine 07/03/17 documented as of this encounter
--- OUTSIDE RECORDS SUMMARY | 2022-07-30 20:34 | XMS_ITS | Encounter Summary ---
:1945 Author Organization [facility] Address [address] [place] [address] Care Team Providers Name Role Phone Elsewhere, Pcp Primary Care Provider Unavailable Encounter Details Date Type Department Care Team Description 10/02/2020 Clinical Communication Department of Hermelindo Dexter, Orthopedic Surgery in [place], [place] [address] [place] [phone] Social History Tobacco Use Types Packs/Day Years [...] have completed or the highest Armando, MEd, REAL ESTATE ACQUISITION ANALYST, ALL) degree you have received? Sex Assigned at Date Recorded Female 07/26/2020 9:06 PM CDT documented as of this encounter Miscellaneous Notes Telephone Encounter - Hermelindo Dexter M.D. - 10/02/2020 4:23 PM CST Miscellaneous Note: Two week phone call status post L AELKS. She is overall doing well. Pain is well controlled off narcotics. All questions were answered. - Incision: Well healed with no erythema or drainage. - Mobilization: Mobilizing well with the walker or cane. STER DRIVER documented in this encounter Plan of Treatment Upcoming Encounters Date Type Specialty Care Team Description 09/08/2022 Procedure visit Aesthetic Medicine and Juanita Vaz, Surgery OUTSOLES CHANNEL OPENER, C.N.P. [address] [place] [phone] (Charlotte bentley) 09/08/2022 Comprehensive Visit Aesthetic Medicine Lucero Mckeon, Surgery MJayda, Ph.D. [address] [place] [phone] (Charlotte bentley) documented as of this encounter Visit Diagnoses Not on filedocumented in this encounter Care Teams Rotary Cutter Operator Relationship Specialty Start Date End Date Elsewhere, Pcp PCP - General Internal Medicine 07/03/17 documented as of this encounter
--- OUTSIDE RECORDS SUMMARY | 2022-07-30 20:34 | XMS_ITS | Encounter Summary ---
:1945 Author Organization [facility] Address [address] [place] [address] Care Team Providers Name Role Phone Elsewhere, Pcp Primary Care Provider Unavailable Reason for Visit Reason Comments Follow-up Encounter Details Date Type Department Care Team Description 12/16/2020 Clinical Communication Division of Vascular Kendall Mello Follow-up and Endovascular Emerald MJayda Surgery in [place], [facility] [address] [place], [place] [address] [facility] [address] [place], [place] [phone] (Work) [phone] Social History Tobacco Use Types Packs/Day Years [...] or relatives? How often do you attend jew or More than 4 times per year 01/28/2021 muslim services? Do you belong to any clubs or Yes 01/28/2021 organizations such as jew groups, unions, fraternal or athletic groups, or [...] have completed or the highest Armando, MEd, LICENSED OCCUPATIONAL THERAPIST, ALL) degree you have received? Sex Assigned at Date Recorded Female 07/26/2020 9:06 PM CDT documented as of this encounter Miscellaneous Notes Telephone Encounter - Giselle rOtiz - 12/16/2020 4:08 PM CDT I have [...] visit Aesthetic Medicine and Juanita Vaz, Surgery RESIN MIXER, C.N.P. [address] [place] [phone] (Charlotte bentley) 09/08/2022 Comprehensive Visit Aesthetic Medicine Lucero Mckeon, Surgery MJayda, Ph.D. [address] [place] [phone] (Charlotte bentley) documented as of this encounter Visit Diagnoses Not on filedocumented in this encounter Care Teams Spray Operator Relationship Specialty Start Date End Date Elsewhere, Pcp PCP - General Internal Medicine 07/03/17 documented as of this encounter
--- OUTSIDE RECORDS SUMMARY | 2022-07-30 20:34 | XMS_ITS | Encounter Summary ---
:1945 Author Organization [facility] Address [address] [place] [address] Care Team Providers Name Role Phone Elsewhere, Pcp Primary Care Provider Unavailable Reason for Referral Physical Therapy (Routine) - Closed Specialty Diagnoses / Procedures Referred By Contact Refer red To Contact Diagnoses Primary Osteoarthritis Hip Left Jarred Jason M.D. [address] [place], [place] [phone] Referral ID Status Reason Start Date Expiration Date Visits Requ ested Visits Authorized [id number] Closed Other 12/05/2020 12/05/2021 20 20 ER INSPECTOR Reason for Visit Reason Comments Post-op Outpatient (Routine) - Closed Specialty Diagnoses / Procedures Referred By Contact Refer red To Contact Orthopedic Surgery Sho Song APRN, [facility] C.N.P. [address] [place] [phone] Referral ID Status Reason Start Date Expiration Date Visits Requ ested Visits Authorized [id number] Closed 09/10/2020 09/10/2021 1 1 Encounter Details Date Type Department Care Team Description 12/05/2020 Office Visit Department of Ángel Apodaca Primary Os teoarthritis Orthopedic Surgery Francesca Moe Hip Left (Primary Dx) in [place], [address] [place], [place] 200 [facility] [address] [place], [place] [phone] (Work) [phone] Social History Tobacco Use Types Packs/Day Years [...] have completed or the highest Armando, MEd, SCANNING MANAGER, ALL) degree you have received? Sex [...] recommendations, and follow-up. All questions were answered. ER INSPECTOR Associated attestation - Ángel Apodaca M.D. - 12/06/2020 9:39 AM CUTTER INSPECTOR documented in this encounter Plan of Treatment Upcoming Encounters Date Type Specialty Care Team Description 09/08/2022 Procedure visit Aesthetic Medicine and Juanita Vaz, Surgery LAB AIDE, C.N.P. [address] [place] [phone] (Charlotte bentley) 09/08/2022 Comprehensive Visit Aesthetic Lucero Arita Surgery M.D., Ph.D. 200 [place] [address] (Charlotte bentley) Scheduled Referrals Name Type Priority Associated Diagnoses Order S nilda PT [facility] Outpatient Referral Routine Primary Osteoarthriti s Expected: referral Hip Left 12/05/2020 (Approximate), Expires: 12/06/2023 documented as of this encounter Visit Diagnoses Diagnosis Primary Osteoarthritis Hip Left - Primar y documented in this encounter Care Teams Talent Acquisition Sourcer Relationship Specialty Start Date End Date Elsewhere, Pcp PCP - General Internal Medicine 07/03/17 documented as of this encounter
--- OUTSIDE RECORDS SUMMARY | 2022-07-30 20:34 | XMS_ITS | Encounter Summary ---
:1945 Author Organization [facility] Address [address] [place] [address] Care Team Providers Name Role Phone Elsewhere, Pcp Primary Care Provider Unavailable Reason for Referral Outpatient (Routine) - Closed Specialty Diagnoses / Procedures Referred By Contact Refer red To Contact Diagnoses Varicose Vein Lower Extremity With Pain Bilateral Juanita Vaz APRN, [facility] Procedures Sclerotherapy NV INJ SCLEROSING SOLN MULT VEIN C.N.P. [address] [place] [phone] Referral ID Status Reason Start Date Expiration Date Visits Requ ested Visits Authorized [id number] Closed 07/22/2021 07/22/2022 2 2 Encounter Details Date Type Department Care Team Description 07/22/2021 Orders Only Department of Vascular Juanita Vaz, Varicose Vein Lower Medicine in [facility] CLAUDIA, C.N .P. Extremity With Pain [place] [address] [facility] Bilateral (Primary Dx) [address] [place] [phone] Social History Tobacco Use Types Packs/Day Years [...] have completed or the highest Armando, MEd, COLLAR POINTER, ALL) degree you have received? Sex Assigned at Date Recorded Female 07/26/2020 9:06 PM CDT documented as of this encounter Plan of Treatment Upcoming Encounters Date Type Specialty Care Team Description 09/08/2022 Procedure visit Aesthetic Medicine and Juanita Vaz, Surgery DOG WALKER, C.N.P. [address] [place] [phone] (Charlotte bentley) 09/08/2022 Comprehensive Visit Aesthetic Medicine Lucero Mckeon, Surgery M.DAnali, Ph.D. [address] [place] [phone] (Charlotte bentley) Scheduled Orders Name Type Priority Associated Diagnoses Order S chedule Sclerotherapy Procedures Routine Varicose Vein Lower 2 Occur rences starting Extremity With Pain 07/22/20 21 until Bilateral 07/22/2024 documented as of this encounter Visit Diagnoses Diagnosis Varicose Vein Lower Extremity With Pain Bilateral - Primary documented in this encounter Care Teams Office Clerk Assistant Relationship Specialty Start Date End Date Elsewhere, Pcp PCP - General Internal Medicine 07/03/17 documented as of this encounter
--- OUTSIDE RECORDS SUMMARY | 2022-07-30 20:34 | XMS_ITS | Encounter Summary ---
:1945 Author Organization [facility] Address [address] [place] [address] Care Team Providers Name Role Phone Elsewhere, Pcp Primary Care Provider Unavailable Reason for Visit Reason Comments Eye Exam floaters right eye and dry eyes, both eyes Outpatient (Routine) - Closed Specialty Diagnoses / Procedures Referred By Contact Refer red To Contact Ophthalmology Diagnoses Dry Eye Syndrome Bilateral Merrill Harris M.D. [facility] [address] [place] [phone] Referral ID Status Reason Start Date Expiration Date Visits V isits Requested Authorized [id number] Closed Specialty 07/19/2020 07/19/2021 1 1 Services Required Encounter Details Date Type Department Care Team Description 01/28/2021 Comprehensive Visit Department of Ananth, Intraoc ular Lens Implant Status Post (Primary Dx); Ophthalmology in [place] Vera O.D. Dry Eye Syndrome Bilateral; [place], [place] 200 [facility] Refraction Disorder; 200 [place], [place] Glaucoma Family History; [place] [address] Endothelial Corneal Dystrophy Bilateral [phone] Social History Tobacco Use Types Packs/Day Years [...] have completed or the highest Armando, MEd, NEWSPAPER INSERTER, ALL) degree you have received? Sex Assigned [...] Plan: Get baseline Pentacam images, both eyes. [facility] will contact patient with the results and recommendations for further care through the portal. documented in this encounter Plan of Treatment Upcoming Encounters Date Type Specialty Care Team Description 09/08/2022 Procedure visit Aesthetic Medicine and Juanita Vaz, Surgery ANATOMIC PATHOLOGY MANAGER, C.N.P. [address] [place] [address] (Wo rk) 09/08/2022 Comprehensive Visit Aesthetic Lucero Arita, Surgery M.Norma, Ph.D. [address] [place] [phone] (Wo rk) documented as of this encounter [...] Eye Reliability was good. Notes Right eye: ??Kenyon in normal position, tr fermin flattening of isopachs, no significant central posterior elevation changes Left eye: ??Kenyon in normal position, mil d distortion of [...] Bilateral documented in this encounter Care Teams Repairer Engine Production Relationship Specialty Start Date End Date Elsewhere, Pcp PCP - General Internal Medicine 07/03/17 documented as of this encounter
--- OUTSIDE RECORDS SUMMARY | 2022-07-30 20:34 | XMS_ITS | Encounter Summary ---
:1945 Author Organization [facility] Address [address] [place] [address] Care Team Providers Name Role Phone Elsewhere, [...] have completed or the highest Armando, MEd, CEMENT TILE MAKER, ALL) degree you have received? Sex Assigned at Date Recorded Female 07/26/2020 9:06 PM CDT documented as of this encounter Plan of Treatment Upcoming Encounters Date Type Specialty Care Team Description 09/08/2022 Procedure visit Aesthetic Medicine and Juanita Vaz, Surgery CONDUCTOR/ENGINEER, C.N.P. [address] [place] [phone] (Wo rk) 09/08/2022 Comprehensive Visit Aesthetic Medicine and Lucero Pritchard, Surgery M.DAnali, Ph.D. [address] [place] [phone] (Wo rk) documented as of this encounter [...] on filedocumented in this encounter Care Teams Gravity Prospector Relationship Specialty Start Date End Date Elsewhere, Pcp PCP - General Internal Medicine 07/03/17 documented as of this encounter
--- OUTSIDE RECORDS SUMMARY | 2022-07-30 20:34 | XMS_ITS | Encounter Summary ---
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 200 [facility] [address] [place] [address] [place], [place] [phone] Referral ID Status Reason Start Date Expiration Date Visits Requ ested Visits Authorized [id number] Closed 12/05/2020 12/05/2021 1 1 Encounter Details Date Type Department Care Team Description 12/05/2020 Hospital Encounter Department of Sho Song Total Radiology, Marino Moe APRN, Hip Replace [facility], in C.N.P. Status Post Left [place], [place] [address] [facility] [address] [place] [phone] Social History Tobacco Use Types Packs/Day Years [...] More than 4 times per year 01/28/2021 hinduism services? Do you belong to any clubs [...] have completed or the highest Armando, MEd, HEALTH SAFETY ENGINEER, ALL) degree you have received? Sex [...] Aesthetic Medicine and Juanita Vaz, Surgery OUTSIDE DELIVERER, C.N.P. [address] [place] [phone] (Wo rk) 09/08/2022 Comprehensive Visit Aesthetic Lucero Arita, Surgery M.DAnali, Ph.D. [address] [place] [phone] (Wo rk) documented as of this encounter Procedures Procedure Name Priority Date/Time Associated Comments Diagnosis DX HIP AND PELVIS RAD - Routine 12/05/2020 12:43 Arthroplasty Total Results for this LEFT 4+ VIEWS (most inpatients PM HOUSING COORDINATOR Hip Replacement procedu re are in and all Status Post Left the results outpatients) section. documented in this encounter Results DX Hip And Pelvis Left 4+ Views (12/05/2020 12:43 PM HOUSING COORDINATOR) Anatomical Region Laterality Modality Lower Extremity, Pelvis, Hip, Musculoskeletal RST LOS, Left Digital Radiography Musculoskeletal ARZ LOS, Muskuloskeletal FLA LOS Specimen (Source) Anatomical Collection Method Collection Time Re ceived Time Location / / Volume Laterality 12/05/2020 12:45 PM HOUSING COORDINATOR Impressions 12/05/2020 12:46 PM HOUSING COORDINATOR Left KORI. No radiographic evidence of loosening. Right KORI. Spinal stimulator over the left side of the sac rum. Degenerative arthritis lower lumbar spine, SI joints, and pubic symphysis. C alcified uterine fibroids. Narrative 12/05/2020 12:46 PM HOUSING COORDINATOR EXAM: ??DX HIP AND PELVIS LEFT 4+ [...] Left documented in this encounter Care Teams Financial Sales Manager Relationship Specialty Start Date End Date Elsewhere, Pcp PCP - General Internal Medicine 07/03/17 documented as of this encounter
--- OUTSIDE RECORDS SUMMARY | 2022-07-30 20:34 | XMS_ITS | Encounter Summary ---
:1945 Author Organization [facility] Address [address] [place] [address] Care Team Providers Name Role Phone Elsewhere, [...] have completed or the highest Armando, MEd, LAWN CARETAKER, ALL) degree you have received? Sex Assigned at Date Recorded Female 07/26/2020 9:06 PM CDT documented as of this encounter Plan of Treatment Upcoming Encounters Date Type Specialty Care Team Description 09/08/2022 Procedure visit Aesthetic Medicine and Juanita Vaz, Surgery PARTS COUNTER SALES PERSON, C.N.P. [address] [place] [phone] (Wo rk) 09/08/2022 Comprehensive Visit Aesthetic Lucero Arita, Surgery M.D., Ph.D. [address] [place] [phone] (Charlotte rk) documented as of this encounter Procedures Procedure Name Priority Date/Time Associated Comments Diagnosis ORTHOPEDIC SURGERY Routine 09/11/2020 9:15 AM Res ults for this IMAGE EXAM JEWELRY MAKING INSTRUCTOR procedure are i n the results section. documented in this encounter Results Non-Radiology Image-Orthopedic Surgery Image Exam (09/11/2020 9:15 AM JEWELRY MAKING INSTRUCTOR) Specimen (Source) Anatomical Collection Method Collection Time Re ceived Time Location / / Volume Laterality 09/11/2020 9:12 AM JEWELRY MAKING INSTRUCTOR Narrative [facility] - 09/11/2020 10:22 AM JEWELRY MAKING INSTRUCTOR This order has been created and auto-finalized [...] filedocumented in this encounter Care Teams Track Laying Equipment Operator Relationship Specialty Start Date End Date Elsewhere, Pcp PCP - General Internal Medicine 07/03/17 documented as of this encounter
--- OUTSIDE RECORDS SUMMARY | 2022-07-30 20:34 | XMS_ITS | Encounter Summary ---
:1945 Author Organization [facility] Address [address] [place] [address] Care Team Providers Name Role Phone Elsewhere, [...] have completed or the highest Armando, MEd, WIRE INSERTER, ALL) degree you have received? Sex Assigned at Date Recorded Female 07/26/2020 9:06 PM CDT documented as of this encounter Plan of Treatment Upcoming Encounters Date Type Specialty Care Team Description 09/08/2022 Procedure visit Aesthetic Medicine and Juanita Vaz, Surgery FINANCE DIRECTOR, C.N.P. [address] [place] [address] (Wo rk) 09/08/2022 Comprehensive Visit Aesthetic Lucero Arita, Surgery M.DAnali, Ph.D. [address] [place] [phone] (Wo rk) documented as of this encounter [...] on filedocumented in this encounter Care Teams Classroom Monitor Relationship Specialty Start Date End Date Elsewhere, Pcp PCP - General Internal Medicine 07/03/17 documented as of this encounter
--- OUTSIDE RECORDS SUMMARY | 2022-07-30 20:34 | XMS_ITS | Encounter Summary ---
:1945 Author Organization [facility] Address [address] [place] [address] Care Team Providers Name Role Phone Elsewhere, Pcp Primary Care Provider Unavailable Encounter Details Date Type Department Care Team Description 09/11/2020 - Hospital Encounter [facility] Ángel Apodaca culty Walking 09/12/2020 Hospital, Jagdish Moe M.D. Orthopedic Hip [facility] [address] [facility] [address] [place], [place] Floor [address] [address] [facility] [phone] [place], [place] (Work) [phone] Social History Tobacco Use [...] have completed or the highest Armando, MEd, RECREATION ENGINEER, ALL) degree you have received? Sex Assigned at Date Recorded Female 07/26/2020 9:06 PM CDT documented as of this encounter Last Filed Vital Signs Vital Sign Reading Time Taken Comments Blood Pressure 114/57 09/12/2020 1:09 PM PARENT EDUCATOR Pulse 66 09/12/2020 1:09 PM PARENT EDUCATOR Temperature 37 ??C (98.6 ??F) 09/12/2020 1:09 PM PARENT EDUCATOR Respiratory Rate 16 09/12/2020 1:09 PM PARENT EDUCATOR Oxygen Saturation 100% 09/12/2020 1:09 PM PARENT EDUCATOR Inhaled Oxygen Concentration - - Weight 65.5 kg (144 lb 6.4 oz) 09/11/2020 6:07 AM PARENT EDUCATOR Height 166 cm (5' 5.35) 09/11/2020 6:07 AM PARENT EDUCATOR Body Mass Index 23.77 09/11/2020 6:07 AM PARENT EDUCATOR documented in this encounter Discharge Summaries Steven Gupta M.D. - 09/12/2020 8:50 AM CST DISCHARGE SUMMARY BRIEF OVERVIEW Hospital: [facility] Discharge Provider: Ángel Apodaca M.D. Primary Team: [facility] Orthopedic Surgery - Paulie Primary Care Providers: [...] Ángel Apodaca M.D.Pb Marshall M.D.Steven Gupta M.D. [facility]OD[facility]IGO OR Yamileth Sheikh was taken [...] ORDERED DURING THIS ADMISSION IP CONSULT TO FAST FOOD SERVICES MANAGER TESTER SEMICONDUCTOR PACKAGES CONDITION AT DISCHARGE stable Discharge instructions were provided to the patient and caregiver(s). NT EDUCATOR documented in this encounter Discharge Instructions AttachmentsThe following attachments cannot be sent through Care Everywhere. Exercises for the Legs (Sitting) (Guinean)Ondansetron (By mouth, Into the mouth) (Guinean)Celecoxib (By mouth) (Guinean)Acetaminophen (By mouth) (Guinean) Oxycodone, Rapid Release (By mouth) (Guinean)Omeprazole (By mouth) (Guinean) Senna (By mouth) (Guinean)Aspirin (By mouth) (Guinean)documented in this encounter Medications at Time of [...] extremity. Educated and reviewed proper use ofleg clay miller. Supervision level assist required when patient utilized leg clay miller with transfer. Bed Mobility - Sit to Supine # of Assistants: 1 Level of Assistance: Minimal assistance Device: None Cuing: Verbal, Tactile Comments: Physical assist provided for the left lower extremity. Educated and reviewed proper use ofleg clay miller. Supervision level assist required when patient utilized leg clay miller with transfer. Bed Mobility - Scooting Level of Assistance: Independent Device: None Comments: Supine, utilizing right lower extremity Transfer - Sit to Stand # of Assistants: 1 Device: Front wheeled walker(And bilateral axillary crutches) Level of Assistance: Minimal assistance Comments: Reviewed transfer utilizing front wheeled walker. Instructed on transfer utilizing bilateral axillary crutches. At this time blog writer recommending use of front wheeled walker until patient is more stable upon standing. Transfer - Stand to Sit # of Assistants: 1 Level of Assistance: Minimal assistance Device: Front wheeled walker(And bilateral axillary crutches) Comments: Reviewed transfer utilizing front wheeled walker. Instructed on transfer utilizing bilateral axillary crutches. At this time blog writer recommending use of front wheeled walker [...] 3-5 steps with a railing?: A Little -[facility] Basic Mobility (V.2) Raw Score: 19 -[facility] Basic Mobility (V.2) Standardized Score: 42.48 Interpretation: Clinicians answer the -[facility] Inpatient Short Form based on observed patient [...] to a walker upon discharge, purchased through [employer]. DME form filled out. Clinical Impression of [...] (min): 43 min Marianna Bob P.T., D.P.T. NT EDUCATOR Steven Gupta M.D. - 09/12/2020 6:01 AM [...] months Steven Gupta M.D. Please contact the [employer] service at [phone] with any questions or concerns regarding this patient. If outside of 06:00 - 18:00 on weekdays or any time on the weekend, please contact the Orthopedic Surgery house resident tonsorial artist at [phone]. NT EDUCATOR Pb Marshall M.D. - 09/11/2020 3:25 PM [...] Consulted for gait training and mobilization per [place] protocol Anticipated Disposition: Home likely tomorrow after PT Follow-up: Patient will follow-up with Dr. Apodaca in the clinic in approximately 3 months Marco Antonio Marshall M.D. Please contact the [place]ie service at [phone] with any questions or concerns regarding this patient. If outside of 06:00 - 18:00 on weekdays or any time on the weekend, please contact the Orthopedic Surgery house resident tonsorial artist at [phone]. NT EDUCATOR Reggie Gray - 09/11/2020 7:10 AM CST Encounter: AM Admit Jane Tradition: Cheondoism. Ms. Kori requested prayer before surgery. Shared prayer. Plan: Will remain available for spiritual care as needed or requested. Chaplains can be contacted bypaging [phone] ([facility]). NT EDUCATOR documented in this encounter Consult Notes Vini James M.T.S. - 09/12/2020 1:02 PM CST Encounter: Communion Situation: Communion has been requested for Yamileth Sheikh's room on 09/12/20. Patient was alertlying in bed and mentioned that she will be discharged today. Family: None Jane Tradition: The patient's yarsani is Cheondoism. Communion: The Sacrament was administered with prayers and blessings. Plan: Will remain available for spiritual care as needed or requested. Chaplains can be contacted bypaging [phone] ([facility]. Fr. Jakob James [facility] NT EDUCATOR Reggie Gray - 09/12/2020 12:11 PM CSTAssociated Order(s): IP CONSULT TO FAST FOOD SERVICES MANAGER TESTER SEMICONDUCTOR PACKAGES Encounter: Spiritual Care Consult. Jane Tradition: Cheondoism. Ms. Sheikh requested communion. Referred to the Cheondoism chaplainfor follow up. Plan: Will remain available for spiritual care as needed or requested. Chaplains can be contacted bypaging [phone] ([facility]). NT EDUCATOR Yamileth King O.T. - 09/12/2020 10:58 AM [...] Prior Function / Occupational Profile Level of Ledbetter: Independent with ADLs and functional transfers, Independent [...] Toilet: Standard Home Equipment Home Adaptive Equipment: Monumental Stonemason Gait Devices Owned: Front-wheeled walker, Cane, Axillary [...] Therapist reviewed fall prevention strategies including using die technician and modified golfer's lift as appropriate to [...] session: no Outcome Measures Current ADL Status: [facility] Inpatient Short Form: Putting on and taking [...] Standardized Score: 44.27 Interpretation: Clinicians answer the [facility] Inpatient Short Form based on observed patient [...] Time (min): 44 min Yamileth King O.T. NT EDUCATOR Marianna Bob P.T., D.P.T. - 09/11/2020 2:54 [...] Prior Function / Occupational Profile Level of Ledbetter: Independent with ADLs and functional transfers Lives With: Alone ADL Assistance: Independent Homemaking Assistance: Independent Driving: Independent Occupational Role: Retired Home Equipment Home Adaptive Equipment: Monumental Stonemason Gait Devices Owned: Front-wheeled walker, Cane, Axillary [...] provided today: Rehabilitation After Total Hip Replacement ([id number]) and Modified due to direct anterior approach, [...] 3-5 steps with a railing?: A Lot [facility] Basic Mobility (V.2) Raw Score: 17 [facility] Basic Mobility (V.2) Standardized Score: 39.67 Interpretation: Clinicians answer the [facility] Inpatient Short Form based on observed patient [...] (min): 55 min Marianna Bob P.T., D.P.T. NT EDUCATOR documented in this encounter Nursing Notes Kymberly [...] withoutbecoming dizzy/lightheaded. Patient dismissed from [facility] to [facility] with son providing transportation. Patient picked up prescriptionsof Zofran, Tramadol, Celebrex, Tylenol, Aspirin, Oxycodone, Prilosec and Senna from [facility] pharmacy upon dismissal. AVS was reviewed with [...] from fall/fall injury Outcome: Adequate for Discharge NT EDUCATOR Lesley Ortez R.N. - 09/11/2020 6:25 PM [...] tylenol and ice. Patient refused additional medications. NT EDUCATOR documented in this encounter OR Notes Op Note - Ángel Apodaca M.D. - 09/11/2020 8:49 AM CST FULL OP NOTE Procedure(s) (LRB): ARTHROPLASTY TOTAL HIP, DIRECT ANTERIOR. (Left) Surgeon(s) and Role: * Ángel Apodaca M.D. - Primary * Pb Marshall M.D. - Want Ad Receiver * Steven Gupta M.D. - Other Slot Machine Department Floorperson Anesthesia Type Regional Pre-operative Diagnosis Primary Osteoarthritis Hip Left Post-operative Diagnosis Primary Osteoarthritis Hip Left Findings As expected. Complications None Description of Procedure The patient was brought to the OR at [facility]. The patient had spinal anesthesia performed by the anesthesia personnel. Local arthroplasty block was performed throughout the procedure. The patient was placed in a supine position on operative table. Both feet were placed in boots for the Hampton table. The left hip was sterilely prepped [...] femoral component the femoral hook from the Hampton bed was placed around the vastus ridge. [...] soft tissue tension. The real Biolox Delta [id number] mm femoral head +0 mm neck was [...] Implant Name Type Inv. Item Serial No. Manager Primary Lot No. LRB No. Used Action CMNT BN HI VISC PMMA 40 - [id number] Bone Cement CMNT BN HI VISC PMMA 40 Cinthya Left 1 Implanted CMNT BN HI VISC PMMA 40 - [id number] Bone Cement CMNT BN HI VISC PMMA 40 [place] Left 1 Implanted HIP RSTRC CMNT 24 - [id number] Hardware e.g. pins/screws/rods HIP RSTRC CMNT 24 Cinthya Left 1 Implanted cup Hip Implant [employer] [id number] Left 1 Implanted HIP SCRW EMP ACET 6.5X30 - [id number] Hardware e.g. pins/screws/rods HIP SCRW EMP ACET 6.5X30 [employer] [id number] Left 1 Implanted HIP SCRW EMP ACET 6.5X35 - [id number] Hardware e.g. pins/screws/rods HIP SCRW EMP ACET 6.5X35 [employer] [id number] Left 1 Implanted LNR EMP STD SZ 36F - [id number] Hip Implant LNR EMP STD SZ 36F [employer] [id number] Left 1 Implanted distal tip Hip Implant [employer] [id number] Left 1 Implanted stem Hip Implant [employer] [id number] Left 1 Implanted HIP HEAD DELTA CER 36MM, NEUT - [id number] Hip Implant HIP HEAD DELTA CER 36MM, NEUT [employer] Cherie [id number] Left 1 Implanted Ángel Apodaca M.D. NT EDUCATOR documented in this encounter Miscellaneous Notes Hospital Course - Steven Gupta M.D. - 09/12/2020 7:46 AM CST Surgery Information This Encounter Past Procedures (09/13/2019 to Today) Date Procedures Providers Location 09/11/2020 ARTHROPLASTY TOTAL HIP, DIRECT ANTERIOR. Ángel Apodaca M.D.Rames, Richard D, M.D.Lee, Dustin R, M.D. [facility] OR Yamileth Sheikh was taken [...] and any other co-managing teams dated 09/12/2020. NT EDUCATOR documented in this encounter Plan of Treatment Upcoming Encounters Date Type Specialty Care Team Description 09/08/2022 Procedure visit Aesthetic Medicine and Juanita Vaz, Surgery POLE SANDER OPERATOR, C.N.P. [address] [place] [phone] (Charlotte bentley) 09/08/2022 Comprehensive Visit Aesthetic Medicine Lucero Mckeon, Andreia Ma, Ph.D. [address] [place] [phone] (Charlotte bentley) documented as of this encounter Procedures Procedure Name Priority Date/Time Associated Diagnosis Comme nts POCT NONINVASIVE Routine 09/12/2020 6:23 Results for HGB AM PARENT EDUCATOR this procedure are in the results section. CBC WITHOUT Routine 09/12/2020 4:32 Results for DIFFERENTIAL, B AM PARENT EDUCATOR this procedu re are in the results section. DX HIP LEFT 2-3 RAD - Routine 09/11/2020 Results for VIEWS (most inpatients 11:23 AM PARENT EDUCATOR this proced ure and all are in the outpatients) results section. FL FLUORO LESS THAN RAD - Routine 09/11/2020 Results for 1 HOUR (most inpatients 10:28 AM PARENT EDUCATOR this proced ure and all are in the outpatients) results section. ARTHROPLASTY TOTAL 09/11/2020 7:16 Primary HIP - DIRECT AM PARENT EDUCATOR Osteoarthritis Hip ANTERIOR Left documented in this encounter Results (ABNORMAL) Noninvasive HGB, POCT (09/12/2020 6:23 AM PARENT EDUCATOR) [facility] Method Time Signature Noninvasive HGB, 10.2 (A) 11.6 - POCT 15.0 g/dL Comment: left index Specimen (Source) Anatomical Collection Method Collection Time Re ceived Time Location / / Volume Laterality Skin 09/12/2020 6:23 AM PARENT EDUCATOR Sho Song APRN, C.N.P. LAB POCT ORDERABLES-MANUAL (ABNORMAL) CBC without Differential (09/12/2020 4:32 AM PARENT EDUCATOR) [facility] gist Method Time Signature Hemoglobin 8.8 (L) 11.6 - 09/12/2020 DTL 15.0 g/dL 5:28 AM PARENT EDUCATOR Hematocrit 26.7 (L) 35.5 - 09/12/2020 DTL 44.9 % 5:28 AM PARENT EDUCATOR Erythrocytes 2.84 (L) 3.92 - 09/12/2020 DTL 5.13 5:28 AM PARENT EDUCATOR x10(12)/L MCV 94.0 78.2 - 09/12/2020 DTL 97.9 fL 5:28 AM PARENT EDUCATOR RBC Distrib Width 12.5 12.2 - 09/12/2020 DTL 16.1 % 5:28 AM PARENT EDUCATOR Platelet Count 116 (L) 157 - 371 09/12/2020 DTL x10(9)/L 5:28 AM PARENT EDUCATOR Leukocytes 11.8 (H) 3.4 - 9.6 09/12/2020 DTL x10(9)/L 5:28 AM PARENT EDUCATOR Specimen Anatomical Collection Method Collection Time Receive d Time (Source) Location / / Volume Laterality Blood (Blood, 09/12/2020 4:32 AM 09/12/20 20 5:19 Venous) PARENT EDUCATOR AM PARENT EDUCATOR Pb Marshall M.D. LAB BLOOD ADD-ON Performing Organization Address City/State/ZIP Code Phon e Number [facility] - [address] [place], [place] [address] [facility] [place] [address] [facility] [address] DX Hip Left 2-3 Views (09/11/2020 11:23 AM PARENT EDUCATOR) Anatomical Region Laterality Modality Lower Extremity, Hip, Musculoskeletal RST LOS, Left Computed Radiography Musculoskeletal ARZ LOS, Muskuloskeletal FLA LOS Specimen (Source) Anatomical Collection Method Collection Time Re ceived Time Location / / Volume Laterality 09/11/2020 11:24 AM PARENT EDUCATOR Impressions 09/11/2020 11:24 AM PARENT EDUCATOR Postop left ALEKS. Right ALEKS. Sacral stimulator incompletely included. Narrative 09/11/2020 11:24 AM PARENT EDUCATOR EXAM: ??DX HIP LEFT 2-3 VIEWS Procedure Note Benito Brown M.D. - 09/11/2020For matting of this note might be different from the original. EXAM: DX HIP LEFT 2-3 VIEWS IMPRESSION: Postop left ALEKS. Right ALEKS. Sacral stimu lator incompletely included. Sho Song APRN, C.N.P. [facility] PRO CEDURES FL Fluoro Less Than 1 Hour (09/11/2020 10:28 AM PARENT EDUCATOR) Specimen (Source) Anatomical Location Collection Method / Collectio n Time Received Time / Laterality Volume Narrative [id number] - 09/11/2020 10:29 AM PARENT EDUCATOR This exam does not require a radiologist review or interpretation. Please refer to the patient's medical record on this date for clinical details. Maria Victoria Jain APRN FLUOROSCOPY PROCEDURES Performing Organization Address City/State/ZIP Code Phon e Number [id number] NA documented in this encounter Visit Diagnoses [...] tablet 1,000 mg Given 09/11/2020 7:10 AM PARENT EDUCATOR 1,000 mg (TYLENOL) 1,000 mg, oral, Once, On Wed09/11/20 at 0700, For 1 dose, Pre-Op acetaminophen tablet 1,000 mg (TYLENOL) Given 09/12/2020 1:54 PM PARENT EDUCATOR 1,000 mg 1,000 mg, oral, Every 6 hours, First dose on Wed09/11/20 at 1400 Given 09/12/2020 8:05 AM PARENT EDUCATOR 1,000 mg Given 09/12/2020 3:00 AM PARENT EDUCATOR 1,000 mg aspirin chewable tablet 81 mg Given 09/12/2020 8:04 AM PARENT EDUCATOR 81 mg 81 mg, oral, 2 times daily, First dose on Wed09/11/20 at 2100 Given 09/11/2020 8:29 PM PARENT EDUCATOR 81 mg ceFAZolin in dextrose (iso-os) IVPB 2 New Bag 09/12/2020 12:14 AM PARENT EDUCATOR 2 g 200 mL/hr g (ANCEF) 2 g, intravenous, at 200 mL/hr, Administer over 30 Minutes, Every 8 hours, First dose on Wed09/11/20 at 1630, For 2 doses, Start within 8 hours of last IV dose. premix bag, Drug Monitoring Program: Pharmacist to adjust medication dosing based on indication and drug clearance factors., Indications: Prophylaxis, surgical New Bag 09/11/2020 4:40 PM PARENT EDUCATOR 2 g 200 mL/hr celecoxib capsule 200 mg (CeleBREX) Given 09/11/2020 7:11 AM PARENT EDUCATOR 200 mg 200 mg, oral, Once, On Wed09/11/20 at 0700, For 1 dose, Pre-Op celecoxib capsule 200 mg (CeleBREX) Given 09/12/2020 8:05 AM PARENT EDUCATOR 200 mg 200 mg, oral, Daily, First dose on Jessica 09/12/20 at 0900 dexmedeTOMIDine 4 mcg/mL Rate/Dose Change 09/11/2020 10:08 0.7 mcg/ kg/hr 11.4 mL/hr in NaCl 0.9% 100 mL AM PARENT EDUCATOR infusion (PRECEDEX) 0.1-1.5 mcg/kg/hr ? 65.5 kg [...] care unit Rate/Dose Change 09/11/2020 9:40 AM PARENT EDUCATOR 0.8 mcg/kg/hr 13.1 mL/hr Rate/Dose Change 09/11/2020 9:06 AM PARENT EDUCATOR 1 mcg/kg/hr 16.3 mL/hr HYDROmorphone (PF) injection 0.2 mg Given 09/11/2020 10:49 PM CS T 0.2 mg (DILAUDID) 0.2 mg, intravenous, Every 1 hour PRN, moderate pain or score 4-6 of 10, severe pain or score 7-10 of 10, Starting on Wed09/11/20 at 2048 irbesartan tablet 150 mg (AVAPRO) Given 09/12/2020 8:05 AM PARENT EDUCATOR 150 mg 150 mg, oral, Every morning, First dose on Jessica 09/12/20 at 0900 lactated Ringer's bolus 500 mL New Bag 09/11/2020 7:25 AM PARENT EDUCATOR 500 mL 1000 mL/hr 500 mL, intravenous, at 1,000 mL/hr, Administer over 30 Minutes, Once, On Wed09/11/20 at 0700, For 1 dose, Pre-Op lactated Ringer's bolus 500 mL New Bag 09/12/2020 7:36 AM PARENT EDUCATOR 500 mL 500 mL/hr 500 mL, intravenous, at 500 mL/hr, Administer over 1 Hours, Once, On Jessica 09/12/20 at 0630, For 1 dose NaCl 0.9% infusion New Bag 09/12/2020 12:12 AM PARENT EDUCATOR 20 mL/hr 20 mL/hr 125 mL/hr, intravenous, Continuous, Starting on Wed09/11/20 at 1245, Discontinue fluids when patient is tolerating 500 ml of oral fluid Rate/Dose Verify 09/11/2020 7:30 PM PARENT EDUCATOR 125 mL/hr 125 mL/hr New Bag 09/11/2020 1:05 PM PARENT EDUCATOR 125 mL/hr 125 mL/hr omeprazole DR capsule 40 mg (PriLOSEC) Given 09/12/2020 6:29 AM PARENT EDUCATOR 40 mg 40 mg, oral, Daily before [...] 5 mg (CRESTOR) Given 09/12/2020 8:04 AM PARENT EDUCATOR 5 mg 5 mg, oral, Every morning, First dose on Jessica 09/12/20 at 0900 scopolamine base 1 mg Medication Applied 09/11/2020 7:12 AM 1 patch Behind Right over 3 days 1 patch PARENT EDUCATOR Ear (TRANSDERM SCOP) 1 patch, transdermal, Administer over 24 Hours, Once as needed, Based on clinical assessment of mental status and history of PONV, Starting on Wed09/11/20 at 0655, For 1 dose, Pre-Op, Contains 1.5 mg to deliver 1 mg/72 hours. sennosides-docusate sodium 8.6-50 mg per Given 09/12/2020 8:04 A M PARENT EDUCATOR 1 tablet tablet 1 tablet (SENOKOT-S) 1 tablet, oral, 2 times daily, First dose on Wed09/11/20 at 2100, Do not give if patient has diarrhea. Given 09/11/2020 8:29 PM PARENT EDUCATOR 1 tablet documented in this encounter Active and Recently Administered Medications Times are shown in PARENT EDUCATOR. Scheduled Medication Order 09/10/2020 09/11/2020 09/12/2020 acetaminophen [...] surgical ceFAZolin injection 2,000 mg (ANCEF) (COMPLETED) 08 (Given - Provider: Levy Mosley APRN, DISPENSARY CLERK) 2,000 mg (rounded from 1,692.5 mg = 25 m g/kg ? 67.7 kg Dosing weight), intravenous, Once, On Wed09/11/20 at 0645, For 1 dose, Intra-Op, Preoperatively within 1 hour prior to surgical incision If needed , reconstitute vial per package insert i nstructions. See IVAG for administration guidelines. , Drug [...] mL/h r, Administer over 20 Minutes, Once, On Wed09/11/20 at 0645, For 1 dose, Intra-Op, Administer in OR upon induction premix bag tranexamic acid in NaCl IVPB 1,000 mg (CYKLOKAPRON) (COMPLET ED) 1029 (Given - Provider: Levy Mosley APRN, PATEL) 1,000 mg (1 g), intravenous, at 300 mL/h r, Administer over 20 Minutes, Once, On Wed09/11/20 [...] mg of calcium, oral, Every 2 hour MS N, indigestion, Starting Wed09/11/20 at 1243, Doses [...] order.
documented in this encounter Care Teams Jockey Valet Relationship Specialty Start Date End Date Elsewhere, Pcp PCP - General Internal Medicine 07/03/17 documented as of this encounter
--- OUTSIDE RECORDS SUMMARY | 2022-07-30 20:34 | XMS_ITS | Encounter Summary ---
:1945 Author Organization [facility] Address [address] [place] [address] Care Team Providers Name Role Phone Elsewhere, Pcp Primary Care Provider Unavailable Reason for Referral Outpatient (Routine) - Closed Specialty Diagnoses / Procedures Referred By Contact Refer red To Contact Vascular Medicine Diagnoses Varicose Vein Lower Extremity With Pain Bilateral Michele Mello [place] M.D. [address] [place] [address] Referral ID Status Reason Start Date Expiration Date Visits Requ ested Visits Authorized [id number] Closed 12/04/2020 12/04/2021 1 1 ET MAKER Reason for Visit Outpatient (Routine) - Closed Specialty Diagnoses / Procedures Referred By Contact Refer red To Contact Vascular Surgery Michele Mello M.D. [facility] [address] [place] [phone] Referral ID Status Reason Start Date Expiration Date Visits Requ ested Visits Authorized [id number] Closed 08/15/2020 08/15/2021 1 1 Encounter Details Date Type Department Care Team Description 12/04/2020 Office Visit Division of Vascular Michele Mello Vein Lower and Endovascular Francesca Corbin Extremity With Pain Surgery in [place] [address] [address] [facility] Bilateral (Primary [place], [place] Dx) [address] [place] [phone] [place], [place] [phone] (Work) [phone] Social History Tobacco Use Types Packs/Day Years [...] have completed or the highest Armando, MEd, LEAD IOS DEVELOPER, ALL) degree you have received? Sex [...] great saphenous vein incompetence Michele Mello M.D. ET MAKER documented in this encounter Plan of Treatment Upcoming Encounters Date Type Specialty Care Team Description 09/08/2022 Procedure visit Aesthetic Medicine and Juanita Vaz, Surgery SENIOR CHEMICAL PROCESS ENGINEER, C.N.P. [address] [place] [phone] (Wo rk) 09/08/2022 Comprehensive Visit Aesthetic Medicine and Lucero Pritchard, Surgery MJayda, Ph.D. [address] [place] [address] (Charlotte rk) Scheduled Referrals Name Type Priority Associated Diagnoses Order S [facility] Outpatient Referral Routine Varicose Vein Lo wer Expected: - Venous / Extremity With Pain 12/05/19 21 varicose Bilateral (Approximate), vein/sclero Expires: consult (clinic) 12/05/2023 documented as of this encounter Visit Diagnoses Diagnosis Varicose Vein Lower Extremity With Pain Bilateral - Primary documented in this encounter Care Teams Turn Machine Operator Relationship Specialty Start Date End Date Elsewhere, Pcp PCP - General Internal Medicine 07/03/17 documented as of this encounter
--- OUTSIDE RECORDS SUMMARY | 2022-07-30 20:34 | XMS_ITS | Encounter Summary ---
:1945 Author Organization [facility] Address [address] [place] [address] Care Team Providers Name Role Phone Elsewhere, Pcp Primary Care Provider Unavailable Encounter Details Date Type Department Care Team Description 03/27/2021 Admin Visit [facility] [address] [place] [phone] Social History Tobacco Use Types Packs/Day [...] slept in a care home (including now)? Education Answer Date Recorded What is the highest level of school Master's degree (e.g., M A, MS, 03/30/2019 you have completed or the highest Armando, MEd, ORDNANCE TRUCK INSTALLATION MECHANIC, ALL) degree you have received? Sex Assigned at Date Recorded Female 07/26/2020 9:06 PM CDT documented as of this encounter Plan of Treatment Upcoming Encounters Date Type Specialty Care Team Description 09/08/2022 Procedure visit Aesthetic Medicine and Juanita Vaz, Surgery SEMICONDUCTOR WAFERS SAW OPERATOR, C.N.P. [address] [place] [address] (Wo rk) 09/08/2022 Comprehensive Visit Aesthetic Medicine Lucero Mckeon, Surgery M.DAnali, Ph.D. [address] [place] [address] (Wo rk) documented as of this encounter Visit Diagnoses Not on filedocumented in this encounter Care Teams Insurance Specialist Relationship Specialty Start Date End Date Elsewhere, Pcp PCP - General Internal Medicine 07/03/17 documented as of this encounter
--- OUTSIDE RECORDS SUMMARY | 2022-07-30 20:34 | XMS_ITS | Encounter Summary ---
:1945 Author Organization [facility] Address [address] [place] [address] Care Team Providers Name Role Phone Elsewhere, Pcp Primary Care Provider Unavailable Encounter Details Date Type Department Care Team Description 12/05/2020 Diagnostic Department of [place], Loss Hearing Otorhinolaryngology in Clive Solano [place], [place] Efrain HarrisCAnaliCAnali-A Bilateral (Primary [address] [facility] [address] [place] [phone] [facility] [phone] [place] [address] Social History Tobacco Use Types [...] have completed or the highest Armando, MEd, SENIOR MARKET INTELLIGENCE CONSULTANT, ALL) degree you have received? Sex Assigned [...] been remade. Hearing Aid Information Left Right Speaking Unit Assembler ReSound ReSound Model Linx 3D 577 Linx 3D 577 Style BTE (fxazkt-epy-xla) BTE ([id number]) Serial Number [id number] Battery Size 13 13 ? Coupling Custom earmold, CARD FOLDER#5 Custom earmold, CARD FOLDER#5 ? Warranty Date 05/12/2022 05/12/2022 Trial Period [...] batteries today. #1 Loss Hearing Sensorineural Bilateral CORRECTION OFFICER documented in this encounter Plan of Treatment Upcoming Encounters Date Type Specialty Care Team Description 09/08/2022 Procedure visit Aesthetic Medicine and Juanita Vaz, Surgery SENIOR PRODUCT ANALYST, C.N.P. [address] [place] [phone] ( mc) 09/08/2022 Comprehensive Visit Aesthetic Medicine Lucero Mckeon, Surgery M.D., Ph.D. [address] [place] [phone] (Charlotte bentley) Scheduled Orders Name Type Priority Associated Diagnoses Order S chedule Hearing aid check Audiology Routine Loss Hearing Sensorineu ral Expected: 06/07/2021 Bilateral (Approximate), Expires: 2023 documented as of this encounter Visit Diagnoses Diagnosis Loss Hearing Sensorineural Bilateral - P rimary documented in this encounter Care Teams Oracle Database Administrator Relationship Specialty Start Date End Date Elsewhere, Pcp PCP - General Internal Medicine 07/03/17 documented as of this encounter
--- OUTSIDE RECORDS SUMMARY | 2022-07-30 20:35 | XMS_ITS | Encounter Summary ---
:1945 Author Organization [facility] Address [address] [place] [address] Care Team Providers Name Role Phone Elsewhere, Pcp Primary Care Provider Unavailable Reason for Referral Outpatient (Routine) - Closed Specialty Diagnoses / Procedures Referred By Contact Refer red To Contact Orthopedic Surgery Sho Song APRN, [place] C.N.P. [address] [place] [phone] Referral ID Status Reason Start Date Expiration Date Visits Requ ested Visits Authorized [id number] Closed 09/10/2020 09/10/2021 1 1 ER WIRE LOOM Reason for Visit Reason Comments Pre-op Exam Outpatient (Routine) - Closed Specialty Diagnoses / Procedures Referred By Contact Refer red To Contact Orthopedic Surgery Sho Song APRN, [place] C.N.P. [address] [place] [phone] Referral ID Status Reason Start Date Expiration Date Visits Requ ested Visits Authorized [id number] Closed 07/31/2020 07/31/2021 1 1 Encounter Details Date Type Department Care Team Description 09/10/2020 Office Visit Department of Ángel Apodaca M.D. [address] [place] [phone] Arthroplasty Total Hip Replacement Statu s Post Left (Primary Dx); Orthopedic Surgery Sho Song, CLAUDIA, C.N.P. [address] [place] [phone] Primary Osteoarthritis Hip Left in [place], [place] [address] [place] [address] Social History Tobacco Use Types Packs/Day Years [...] have completed or the highest Armando, MEd, CLINICAL RESEARCH ANALYST, ALL) degree you have received? Sex [...] (149 lb 4 oz) 09/10/2020 9:25 AM WEAVER WIRE LOOM Height 167.3 cm (5' 5.87) 09/10/2020 9:25 AM WEAVER WIRE LOOM Body Mass Index 24.19 09/10/2020 9:25 AM WEAVER WIRE LOOM documented in this encounter Progress Notes Sho [...] / tie shoes: yes, with difficulty ?? wood preparation supervisor an object from the floor: yes, [...] blood/lymph issues: Yes No urinary/reproductive issues: Yes ER WIRE LOOM documented in this encounter Plan of Treatment Upcoming Encounters Date Type Specialty Care Team Description 09/08/2022 Procedure visit Aesthetic Medicine and Juanita Vaz, Surgery MAJOR GIFTS MANAGER, C.N.P. [address] [place] [phone] ([facility]) 09/08/2022 Comprehensive Visit Aesthetic Lucero Arita Surgery Francesca, Ph.D. [address] [place] [phone] ( rk) Scheduled Referrals Name Type Priority Associated Order Schedule Diagnoses Orthopedic Surgery Outpatient Referral Routine Ex pected: Post Op (clinic) 12/03/2020 (Approximate), Expires: 09/10/2023 documented as of this encounter Results DX Hip And Pelvis Left 4+ Views (12/05/2020 12:43 PM WEAVER WIRE LOOM) Anatomical Region Laterality Modality Lower Extremity, Pelvis, Hip, Musculoskeletal RST LOS, Left Digital Radiography Musculoskeletal ARZ LOS, Muskuloskeletal FLA LOS Specimen (Source) Anatomical Collection Method Collection Time Re ceived Time Location / / Volume Laterality 12/05/2020 12:45 PM WEAVER WIRE LOOM Impressions 12/05/2020 12:46 PM WEAVER WIRE LOOM Left ALEKS. No radiographic evidence of loosening. Right ALEKS. Spinal stimulator over the left side of the sac rum. Degenerative arthritis lower lumbar spine, SI joints, and pubic symphysis. C alcified uterine fibroids. Narrative 12/05/2020 12:46 PM WEAVER WIRE LOOM EXAM: ??DX HIP AND PELVIS LEFT 4+ [...] Left documented in this encounter Care Teams Electrical Controls Engineer Relationship Specialty Start Date End Date Elsewhere, Pcp PCP - General Internal Medicine 07/03/17 documented as of this encounter
--- OUTSIDE RECORDS SUMMARY | 2022-07-30 20:35 | XMS_ITS | Encounter Summary ---
:1945 Author Organization [facility] Address [address] [place] [address] Care Team Providers Name Role Phone Elsewhere, Pcp Primary Care Provider Unavailable Reason for Visit Outpatient (Routine) - Closed Specialty Diagnoses / Procedures Referred By Contact Refer red To Contact Endocrinology Merrill Harris M.D . [facility] [address] [place], [place] [phone] Referral ID Status Reason Start Date Expiration Date Visits Requ ested Visits Authorized [id number] Closed 05/24/2020 05/24/2021 1 1 Encounter Details Date Type Department Care Team Description 07/02/2020 Office Visit Division of Merrill Harris Osteoporosi s (Primary Endocrinology in M.D. Dx) [place], [place] [address] [facility] [address] [place] [phone] Social History Tobacco Use Types Packs/Day Years [...] or relatives? How often do you attend jehovah's witness or More than 4 times per year 01/28/2021 yarsanism services? Do you belong to any clubs or Yes 01/28/2021 organizations such as jehovah's witness groups, unions, fraternal or athletic groups, or [...] have completed or the highest Armando, MEd, BUSINESS SERVICES VICE PRESIDENT, ALL) degree you have received? Sex Assigned [...] Merrill Harris M.D. CT CT Job ID: [id number] documented in this encounter Plan of Treatment Upcoming Encounters Date Type Specialty Care Team Description 09/08/2022 Procedure visit Aesthetic Medicine and Juanita Vaz, Surgery ONLINE SERVICES MANAGER, C.N.P. [address] [place] [phone] (Charlotte bentley) 09/08/2022 Comprehensive Visit Aesthetic Medicine Lucero Mckeon, Surgery Francesca, Ph.D. [address] [place] [phone] (Charlotte bentley) documented as of this encounter Visit Diagnoses Diagnosis Osteoporosis - Primary documented in this encounter Care Teams Lamination Inspector Relationship Specialty Start Date End Date Elsewhere, Pcp PCP - General Internal Medicine 07/03/17 documented as of this encounter
--- OUTSIDE RECORDS SUMMARY | 2022-07-30 20:35 | XMS_ITS | Encounter Summary ---
:1945 Author Organization [facility] Address [address] [place] [address] Care Team Providers Name Role Phone Elsewhere, Pcp Primary Care Provider Unavailable Reason for Referral Outpatient (Routine) - Closed Specialty Diagnoses / Procedures Referred By Contact Refer red To Contact Ophthalmology Diagnoses Dry Eye Syndrome Bilateral Merrill Harris M.D. [facility] [address] [place] [address] Referral ID Status Reason Start Date Expiration Date Visits V isits Requested Authorized [id number] Closed Specialty 07/19/2020 07/19/2021 1 1 Services Required Encounter Details Date Type Department Care Team Description 07/19/2020 Orders Only Division of Merrill Harris, Dry Eye Syn drome Endocrinology in M.DAnali Bilateral (Primary [place], [place] 200 [facility] Dx) [address] [place] [phone] Social History Tobacco Use Types Packs/Day Years [...] have completed or the highest Armando, MEd, BAR TACKER, ALL) degree you have received? Sex Assigned at Date Recorded Female 07/26/2020 9:06 PM CDT documented as of this encounter Plan of Treatment Upcoming Encounters Date Type Specialty Care Team Description 09/08/2022 Procedure visit Aesthetic Medicine and Juanita Vaz, Surgery COMMODITIES MANAGER, C.N.P. [address] [place] [phone] (Wo rk) 09/08/2022 Comprehensive Visit Aesthetic Medicine and Lucero Pritchard, Surgery M.D., Ph.D. [address] [place] [phone] (Wo rk) documented as of this encounter Results Ophthalmology - General consult (clinic) (01/28/2021 2:49 PM CDT) Merrill Harris M.D. OUTPATIENT REFERRAL ORDERABL ES documented in this encounter Visit Diagnoses Diagnosis Dry Eye Syndrome Bilateral - Primary documented in this encounter Care Teams Insole Department Worker Relationship Specialty Start Date End Date Elsewhere, Pcp PCP - General Internal Medicine 07/03/17 documented as of this encounter
--- OUTSIDE RECORDS SUMMARY | 2022-07-30 20:35 | XMS_ITS | Encounter Summary ---
:1945 Author Organization [facility] Address [address] [place] [address] Care Team Providers Name Role Phone Elsewhere, Pcp Primary Care Provider Unavailable Reason for Referral Specialty Diagnoses / Procedures Referred By Contact Refer red To Contact Sho Song APR N, C.N.P. [facility] [address] [place] [phone] Referral ID Status Reason Start Date Expiration Date Visits Requ ested Visits Authorized Outpatient (Routine) - Closed Specialty Diagnoses / Procedures Referred By Contact Refer red To Contact Orthopedic Surgery Sho Song APRN, [place] C.N.P. [address] [place] [phone] Referral ID Status Reason Start Date Expiration Date Visits Requ ested Visits Authorized [id number] Closed 07/31/2020 07/31/2021 1 1 Outpatient (Routine) - Closed Specialty Diagnoses / Procedures Referred By Contact Refer red To Contact General Surgery Diagnoses Primary Osteoarthritis Hip Left Sho Song [facility] CLAUDIA, C.N.P. [address] [place] [phone] Referral ID Status Reason Start Date Expiration Date Visits Requ ested Visits Authorized [id number] Closed 07/31/2020 07/31/2021 1 1 Reason for Visit Reason Onset Date Comments Pre-Surgical COVID-19 screening 07/31/2020 Pain Appointment Request (Routine) - Closed Specialty Diagnoses / Procedures Referred By Contact Refer red To Contact Orthopedic Surgery Diagnoses Arthritis Hip Referral ID Status Reason Start Date Expiration Date Visits Requ ested Visits Authorized [id number] Closed 09/25/2019 09/24/2020 1 Encounter Details Date Type Department Care Team Description 07/31/2020 Comprehensive Visit Department of Paulie, Primary Osteoarthritis Hip Left (Primary Dx); Orthopedic Surgery Reji Anna Preoperative Exam; in [address] Encounter For Screening For Other Viral Diseases (COVID-19) [place], [place] [address] [place] [phone] [place], [place] [phone] (Work) [phone] Social History Tobacco Use Types Packs/Day Years [...] have completed or the highest Armando, MEd, WATCH BAND ASSEMBLER, ALL) degree you have received? Sex Assigned at Date Recorded Female 07/26/2020 9:06 PM CDT documented as of this encounter Progress Notes Sho Song APRN, C.N.P. - 07/31/2020 8:00 AM CDT Pre-Surgical Screening for patients with a surgery scheduled on the [facility] and [facility] surgical suites. 1. 2-3 days prior to scheduled surgery: Patient will have testing for COVID-19. 2. Test results will be verified by the surgical team before the patient arrives at the [facility] surgery. The Patient Appointment Guide will contain the specific arrival times/locations for these scheduled appointment(s). On weekend days, patients who will be testing in [place] are to arrive at [facility] or [facility] from the [facility]. documented in this [...] / tie shoes: yes, with difficulty ?? supervisor fruit grading an object from the floor: yes, with [...] and Sacral nerve stimulator placement. CURRENT MEDICATIONS Yamilteh Sheikh has a current medication list which [...] visit Aesthetic Medicine and Juanita Vaz, Surgery HOME CARE LIAISON, C.N.P. 200 [place] [phone] (Charlotte bentley) 09/08/2022 Comprehensive Visit Lucero Cervantes Surgery MJayda, Ph.D. 200 [place] [phone] (Charlotte bentley) Scheduled Referrals Name Type Priority [...] Coronavirus-2 RNA, V Asymptomatic (09/09/2020 10:34 AM DIESEL INSPECTOR) [facility] Method Time Signature SARS-CoV-2 Swab, 09/09/2020 DTL Specimen Nasopharynx 4:30 PM DIESEL INSPECTOR Source SARS CoV-2 Undetected Undetected 09/09/2020 DTL RNA, TMA 4:30 PM DIESEL INSPECTOR Comment: SARS-CoV-2 RNA absent. This result does not rule out COVID-19 in the patient, as the sensitivity of the test depends o n the timing of the specimen collection and the quality of the specim en. Result should be correlated with patient's history and clinical presentat ion. ----ADDITIONAL INFORMATION---- This test is performed using the Aptima SARS-CoV-2 assay ([employer] which has received Emergency Use Authori zation (EUA) by the U.S. Food and Drug Administration. Fact sheets for this Emergency Use Autho rization (EUA) assay can be found at the following links: For Healthcare Providers: https://www.fd a.gov/media/164344/download For Patients: https://www.fda.gov/media/ 635005/download Specimen Anatomical Collection Method Collection Time Receive d Time (Source) Location / / Volume Laterality Varies 09/09/2020 10:34 09/09/2020 (Nasopharynx) AM DIESEL INSPECTOR 11:36 AM DIESEL INSPECTOR Sho Song APRN, C.N.P. LAB MICROBIOLOGY - GENERAL ORDERABLES Performing Organization Address City/State/ZIP Code Phon e Number [facility] - [address] [place], [place] [address] [facility] [place] [address] [facility] [address] documented in this encounter Visit Diagnoses Diagnosis Primary Osteoarthritis Hip Left - Primar y Preoperative Exam Encounter For Screening For Other Viral Diseases (COVID-19) documented in this encounter Care Teams Plaster Mechanic Relationship Specialty Start Date End Date Elsewhere, Pcp PCP - General Internal Medicine 07/03/17 documented as of this encounter
--- OUTSIDE RECORDS SUMMARY | 2022-07-30 20:35 | XMS_ITS | Encounter Summary ---
:1945 Author Organization [facility] Address [address] [place] [address] Care Team Providers Name Role Phone Elsewhere, Pcp Primary Care Provider Unavailable Encounter Details Date Type Department Care Team Description 09/09/2020 Lab Department of Laboratory Sho Song, Encounter For Screening Medicine and Pathology, AUTOMATIC FOLDER SEAMER, C. N.P. For Other Viral Diseases [place], in [address] [place] [address] (COVID-19) [place], [place] [address] [place] [phone] [place] [address] [phone] Social History Tobacco Use Types Packs/Day Years [...] completed or the highest Armando, MEd, REHABILITATION SERVICES DIRECTOR, ALL) degree you have received? Sex Assigned at Date Recorded Female 07/26/2020 9:06 PM CDT documented as of this encounter Plan of Treatment Upcoming Encounters Date Type Specialty Care Team Description 09/08/2022 Procedure visit Aesthetic Medicine and Juanita Vaz, Surgery AUTOMATIC FOLDER SEAMER, C.N.P. [address] [place] [phone] (Wo rk) 09/08/2022 Comprehensive Visit Aesthetic Medicine and Lucero Pritchard, Surgery M.D., Ph.D. [address] [place] [phone] (Wo rk) documented as of this encounter Procedures Procedure Name Priority Date/Time Associated Diagnosis Comme nts SARS CORONAVIRUS-2 Routine 09/09/2020 10:34 AM Encounter For R esults for this RNA, V CRANE ASSEMBLER Screening For Other procedur e are in Viral Diseases the results (COVID-19) section. documented in this encounter Results SARS Coronavirus-2 RNA, V Asymptomatic (09/09/2020 10:34 AM CRANE ASSEMBLER) [facility] Method Time Signature SARS-CoV-2 Swab, 09/09/2020 DTL Specimen Nasopharynx 4:30 PM CRANE ASSEMBLER Source SARS CoV-2 Undetected Undetected 09/09/2020 DTL RNA, TMA 4:30 PM CRANE ASSEMBLER Comment: SARS-CoV-2 RNA absent. This result does not rule out COVID-19 in the patient, as the sensitivity of the test depends o n the timing of the specimen collection and the quality of the specim en. Result should be correlated with patient's history and clinical presentat ion. ----ADDITIONAL INFORMATION---- This test is performed using the Aptima SARS-CoV-2 assay ([employer] which has received Emergency Use Authori zation (EUA) by the U.S. Food and Drug Administration. Fact sheets for this Emergency Use Autho rization (EUA) assay can be found at the following links: For Healthcare Providers: https://www.fd a.gov/media/303639/download For Patients: https://www.fda.gov/media/ 370096/download Specimen Anatomical Collection Method Collection Time Receive d Time (Source) Location / / Volume Laterality Varies 09/09/2020 10:34 09/09/2020 (Nasopharynx) AM CRANE ASSEMBLER 11:36 AM CRANE ASSEMBLER Sho Song APRN C.NAnaliPAnali LAB MICROBIOLOGY - GENERAL ORDERABLES Performing Organization Address City/State/[facility] Code Phon e Number [facility] - [address] [place], [place] [address] [facility] [place] [address] Laboratories-[facility] [address] documented in this encounter Visit Diagnoses Diagnosis Encounter For Screening For Other Viral Diseases (COVID-19) documented in this encounter Additional Health Concerns Infection Onset Date Last Indicated Resolved Time COVID19 Pending 09/09/2020 09/09/2020 09/09/2020 4:30 PM CRANE ASSEMBLER documented as of this encounter Care Teams X Ray Developing Machine Operator Relationship Specialty Start Date End Date Elsewhere, Pcp PCP - General Internal Medicine 07/03/17 documented as of this encounter
--- OUTSIDE RECORDS SUMMARY | 2022-07-30 20:35 | XMS_ITS | Encounter Summary ---
:1945 Author Organization [facility] Address [address] [place] [address] Care Team Providers Name Role Phone Elsewhere, Pcp Primary Care Provider Unavailable Reason for Referral Outpatient (Routine) - Closed Specialty Diagnoses / Procedures Referred By Contact Refer red To Contact Diagnoses Varicose Vein Lower Extremity With Pain Bilateral Venous Insufficiency Chronic Peripheral Juanita Vaz APRN, [place] [facility] Procedures US Lower Extremity Venous Insufficiency Bilateral C.N.P. 200 [place] [phone] Referral ID Status Reason Start Date Expiration Date Visits Requ ested Visits Authorized [id number] Closed 06/24/2020 06/24/2021 1 1 Reason for Visit Outpatient (Routine) - Closed Specialty Diagnoses / Procedures Referred By Contact Refer red To Contact Diagnoses Varicose Vein Lower Extremity With Pain Bilateral Venous Insufficiency Chronic Peripheral Juanita Vaz APRN, [place] on Procedures US Lower Extremity Venous Insufficiency Bilateral C.N.P. [address] [place] [phone] Referral ID Status Reason Start Date Expiration Date Visits Requ ested Visits Authorized [id number] Closed 06/24/2020 06/24/2021 1 1 Encounter Details Date Type Department Care Team Description 07/31/2020 Hospital Encounter Department of Juanita Vaz Varico se Vein Lower Extremity With Pain Bilateral ; Radiology, Marino Malone APRN, C.N.P. Venous Insufficiency Chronic Peripheral; Building, in 200 [facility] Varicose Vein Lower Extremity With Pain Bilateral [facility] [phone] 200 [facility] [phone] [place], [place] (Work) [phone] Social History Tobacco Use Types Packs/Day Years [...] have completed or the highest Armando, MEd, ADMINISTRATIVE OFFICER, ALL) degree you have received? Sex Assigned [...] visit Aesthetic Medicine and Juanita Vaz, Surgery FORENSIC DOCUMENT EXAMINER, C.N.P. [address] [place] [phone] (Charlotte bentley) 09/08/2022 Comprehensive Visit Aesthetic Medicine Lucero Mckeon, Surgery M.DAnali, Ph.D. 200 [place] [phone] (Charlotte bentley) documented as of this encounter [...] Peripheral documented in this encounter Care Teams Industrial Security Analyst Relationship Specialty Start Date End Date Elsewhere, Pcp PCP - General Internal Medicine 07/03/17 documented as of this encounter
--- OUTSIDE RECORDS SUMMARY | 2022-07-30 20:35 | XMS_ITS | Encounter Summary ---
:1945 Author Organization [facility] Address [address] [place] [address] Care Team Providers Name Role Phone Elsewhere, [...] completed or the highest Armando, MEd, SALES SERVICE TECHNICIAN, ALL) degree you have received? Sex Assigned at Date Recorded Female 07/26/2020 9:06 PM CDT documented as of this encounter Plan of Treatment Upcoming Encounters Date Type Specialty Care Team Description 09/08/2022 Procedure visit Aesthetic Medicine and Juanita Vaz, Surgery TICKET PULLER, C.N.P. [address] [place] [phone] (Charlotte rk) 09/08/2022 Comprehensive Visit Aesthetic Medicine Lucero Mckeon, Surgery M.D., Ph.D. [address] [place] [phone] (Charlotte rk) documented as of this encounter [...] Volume Narrative IIMS - 09/08/2020 7:03 AM MILL WASHER This order has been created and auto-finalized [...] on filedocumented in this encounter Care Teams Meat Press Operator Relationship Specialty Start Date End Date Elsewhere, Pcp PCP - General Internal Medicine 07/03/17 documented as of this encounter
--- OUTSIDE RECORDS SUMMARY | 2022-07-30 20:35 | XMS_ITS | Encounter Summary ---
:[address] [facility] Address [address] [place] [address] Care Team Providers Name Role Phone Elsewhere, Pcp Primary Care Provider Unavailable Encounter Details Date Type Department Care Team Description 09/10/2020 Orders Only Department of Orthopedic Keanu Gupta M.D. Surgery in [place], [facility] [address] [place], [place] [address] [facility] [address] [place] [address] [phone] Social History Tobacco Use Types Packs/Day Years [...] More than 4 times per year 01/28/2021 zoroastrian services? Do you belong to any clubs [...] have completed or the highest Armando, MEd, PERMANENT MOLD SUPERVISOR, ALL) degree you have received? Sex Assigned at Date Recorded Female 07/26/2020 9:06 PM CDT documented as of this encounter Plan of Treatment Upcoming Encounters Date Type Specialty Care Team Description 09/08/2022 Procedure visit Aesthetic Medicine and Juanita Vaz, Surgery WEBFED OFFSET PRESS OPERATOR, C.N.P. [address] [place] [phone] (Wo rk) 09/08/2022 Comprehensive Visit Aesthetic Medicine and Lucero Pritchard, Surgery M.DAnali, Ph.D. [address] [place] [phone] (Wo rk) documented as of this encounter Visit Diagnoses Not on filedocumented in this encounter Care Teams Service Center Technician Relationship Specialty Start Date End Date Elsewhere, Pcp PCP - General Internal Medicine 07/03/17 documented as of this encounter
--- OUTSIDE RECORDS SUMMARY | 2022-07-30 20:35 | XMS_ITS | Encounter Summary ---
:1945 Author Organization [facility] Address [address] [place] [address] Care Team Providers Name Role Phone Elsewhere, Pcp Primary Care Provider Unavailable Reason for Referral Outpatient (Routine) - Closed Specialty Diagnoses / Procedures Referred By Contact Refer red To Contact Diagnoses Preanesthetic Medical Exam Cardiac Vascular Disease Screening [facility] Procedures ECG 12 Lead C.N.P., M.S.N. [address] [place] [phone] Referral ID Status Reason Start Date Expiration Date Visits Requ ested Visits Authorized [id number] Closed 08/26/2020 08/26/2021 1 1 TIVE SPECIALIST Reason for Visit Outpatient (Routine) - Closed Specialty Diagnoses / Procedures Referred By Contact Refer red To Contact General Surgery Diagnoses Primary Osteoarthritis Hip Left Sho Song [facility] CLAUDIA, C.N.P. [address] [place] [phone] Referral ID Status Reason Start Date Expiration Date Visits Requ ested Visits Authorized [id number] Closed 07/31/2020 07/31/2021 1 1 Encounter Details Date Type Department Care Team Description 08/26/2020 Telemedicine Preoperative Sho Song APRN, C.N.P. [address] [place] [phone] Preanesthetic Medical Exam (Primary Dx); [facility], C.N.P., M.S.N. 200 [place] [phone] Post Operative Nausea/Vomiting; [place], [place] Primary Osteoarthritis Hip L eft; 200 RUST Hypertension Essential Prima ry; [place], [place] Hyperlipidemia ; [phone] Varicose Vein Lower Extremit y With Pain Bilateral; [phone] Osteoporosis; Loss Hearing Se nsorineural Asymmetrical; Tinnitus [...] have completed or the highest Armando, MEd, PROSPECTING DRILLER, ALL) degree you have received? Sex Assigned at Date Recorded Female 07/26/2020 9:06 PM CDT documented as of this encounter H&P Notes Manjula Arizmendi, METAL POLISHER, C.N.P., M.S.N. - 08/26/2020 1:00 PM CST Preoperative Medical Evaluation Patient Name: Yamileth Sheikh Age: 75 y.o. Date of : 1945 Patient Address: [address] [place] [phone] Primary Care Provider: MARICARMEN PCP Referring Physician: [...] from 08/26/2020 in Preoperative Evaluation Center in [place], [place] Estimated V02 Peak 19.68 Estimated MET [...] spent a total of 30 minutes in grc-zeej-jd-face time performing a review of the record and/or discussion with the patient/caregiver as described above. Consult conducted via real-time audio/video technology by Manjula Arizmendi APRN, C.N.Nancy, M.S.N. in [facility] to the patient in the patient's home. TIVE SPECIALIST documented in this encounter Plan of Treatment Upcoming Encounters Date Type Specialty Care Team Description 09/08/2022 Procedure visit Aesthetic Medicine and Juanita Vaz, Surgery CLAUDIA, C.N.P. [address] [place] [phone] (Wo rk) 09/08/2022 Comprehensive Visit Aesthetic Medicine and Lucero Pritchard, Surgery Francesca, Ph.D. [address] [place] [phone] (Wo rk) documented as of this encounter Results ECG 12 Lead (09/10/2020 12:56 PM CREATIVE SPECIALIST) P athologist Signature Ventricular Rate 58 BPM MUSE ECG/Min MS Interval 168 ms MUSE QRSD Interval 98 ms MUSE QT Interval 410 ms MUSE QTC Interval 402 ms MUSE P [place] 52 degrees MUSE R [place] 26 degrees MUSE T Wave [place] 47 degrees MUSE Specimen Anatomical Collection Method Collection Time Receive d Time (Source) Location / / Volume Laterality 09/10/2020 12:56 09/10/2020 1:00 PM CREATIVE SPECIALIST PM CREATIVE SPECIALIST Impressions MUSE - 09/10/2020 1:00 PM CREATIVE SPECIALIST Sinus bradycardia Otherwise normal ECG When compared [...] Screening documented in this encounter Care Teams Concrete Paving Machine Operator Relationship Specialty Start Date End Date Elsewhere, Pcp PCP - General Internal Medicine 07/03/17 documented as of this encounter
--- OUTSIDE RECORDS SUMMARY | 2022-07-30 20:35 | XMS_ITS | Encounter Summary ---
:1945 Author Organization [facility] Address [address] [place] [address] Care Team Providers Name Role Phone Elsewhere, Pcp Primary Care Provider Unavailable Reason for Visit Reason Comments Follow-up Encounter Details Date Type Department Care Team Description 07/19/2020 Clinical Communication Division of Merrill Harris F ollow- Endocrinology in [place], [place] [address] [facility] [address] [place] [phone] Social History Tobacco Use Types Packs/Day Years [...] have completed or the highest Armando, MEd, FORKLIFT WHEEL LOADER, ALL) degree you have received? Sex Assigned at Date Recorded Female 07/26/2020 9:06 PM CDT documented as of this encounter Miscellaneous Notes Telephone Encounter - Lea Massey - 07/24/2020 8:52 AM CDT Sent POM to patient explaining there is no openings and gave direct number for ophthalmology. I willalso keep checking and if I find an opening I will contact her back. Telephone Encounter - Merrill Harris M.D. - 07/19/2020 11:16 AM CDT I ordered the eye consult. Telephone Encounter - Lea Massey - 07/19/2020 9:04 AM CDT S: Caller/Dept - Patient Phone # - [phone] MD Oj Harris B: Patient was last seen on : 07/02/20 Patient is scheduled for: n/a A: Patient was seen for osteoporosis. Patient called this morning to see if you would be willing to place an order for ophthalmology. Patient stated she is experiencing dry eyes and thinks she may havean eye infection. I did state that I can send you a message to see if you are willing to send a referral and that right now ophthalmology department has no openings/waitlist. She still wanted me to check with you. Please advise. Thank you! R: PASS-contact patient back. [facility] Endocrinology Appointment Office [phone] *reply back to P RST END SCHEDULING* documented in this encounter Plan of Treatment Upcoming Encounters Date Type Specialty Care Team Description 09/08/2022 Procedure visit Aesthetic Medicine and Juanita Vaz, Surgery RAIL EXPRESS CLERK, C.N.P. [address] [place] [phone] (Charlotte rk) 09/08/2022 Comprehensive Visit Aesthetic Medicine and Lucero Pritchard, Surgery MJayda, Ph.D. [address] [place] [phone] (Charlotte bentley) documented as of this encounter Visit Diagnoses Not on filedocumented in this encounter Care Teams Manager Implementation Relationship Specialty Start Date End Date Elsewhere, Pcp PCP - General Internal Medicine 07/03/17 documented as of this encounter
--- OUTSIDE RECORDS SUMMARY | 2022-07-30 20:35 | XMS_ITS | Encounter Summary ---
:1945 Author Organization [facility] Address [address] [place] [address] Care Team Providers Name Role Phone Elsewhere, Pcp Primary Care Provider Unavailable Reason for Referral Outpatient (Routine) - Closed Specialty Diagnoses / Procedures Referred By Contact Refer red To Contact Diagnoses Screening Mammogram Breast Cancer Merrill Harris M.D. [facility] Procedures BI Breast Screening Bilateral with Tomosynthesis [address] [place], [place] [phone] Referral ID Status Reason Start Date Expiration Date Visits Requ ested Visits Authorized [id number] Closed 05/24/2020 05/24/2021 1 1 ODITY TRADER Reason for Visit Outpatient (Routine) - Closed Specialty Diagnoses / Procedures Referred By Contact Refer red To Contact Diagnoses Screening Mammogram Breast Cancer Merrill Harris M.D. [facility] Procedures BI Breast Screening Bilateral with Tomosynthesis [address] [place] [address] Referral ID Status Reason Start Date Expiration Date Visits Requ ested Visits Authorized [id number] Closed 05/24/2020 05/24/2021 1 1 Encounter Details Date Type Department Care Team Description 09/10/2020 Hospital Encounter Department of Merrill Harris Mammogram Radiology javier Perera M.D. Breast [place], [place] [address] [facility] [address] [place] [phone] Social History Tobacco Use Types Packs/Day Years [...] have completed or the highest Armando, MEd, DERMATOLOGIST, ALL) degree you have received? Sex Assigned [...] visit Aesthetic Medicine and Juanita Vaz, Surgery POURED CONCRETE WALL TECHNICIAN, C.N.P. [address] [place] [phone] (Charlotte bentley) 09/08/2022 Comprehensive Visit Aesthetic Medicine Lucero Mckeon Surgery MJayda, Ph.D. [address] [place] [phone] (Charlotte bentley) documented as of this encounter Procedures Procedure Name Priority Date/Time Associated Comments Diagnosis BI BREAST SCREENING RAD - Routine 09/10/2020 2:34 Screening Resu lts for BILATERAL WITH (most inpatients PM COMMODITY TRADER Mammogram Breast this procedure TOMOSYNTHESIS and all Cancer are in the outpatients) results section. documented in this encounter Results BI Breast Screening Bilateral with Tomosynthesis (09/10/2020 2:34 PM COMMODITY TRADER) Anatomical Region Laterality Modality Breast, Breast Imaging RST LOS, Breast Imaging ARZ LOS, [address] st Bilateral Mammography Imaging FLA LOS Specimen (Source) Anatomical Collection Method Collection Time Re ceived Time Location / / Volume Laterality 09/10/2020 3:31 PM COMMODITY TRADER Impressions 09/10/2020 3:33 PM COMMODITY TRADER Benign. RECOMMENDATION: ??Annual Screening Mammo gram ASSESSMENT: ??BI-RADS: 2: Benign. Narrative 09/10/2020 3:33 PM COMMODITY TRADER EXAM: ??BI BREAST SCREENING BILATERAL WITH TOMOSYNTHESIS [...] TOMOSYNTHESIS Current study was evaluated with a Pharminexu ter Aided Detection (CAD) system. INDICATION: Screening [...] Cancer documented in this encounter Care Teams Merchandise Appraiser Relationship Specialty Start Date End Date Elsewhere, Pcp PCP - General Internal Medicine 07/03/17 documented as of this encounter
--- OUTSIDE RECORDS SUMMARY | 2022-07-30 20:35 | XMS_ITS | Encounter Summary ---
:1945 Author Organization [facility] Address [address] [place] [address] Care Team Providers Name Role Phone Elsewhere, Pcp Primary Care Provider Unavailable Encounter Details Date Type Department Care Team Description 07/01/2020 Hospital Encounter Department of Merrill Harris Leuk ocytosis Laboratory Medicine and M.Norma Pathology, [address] [phone] [place] [address] [place] [phone] Social History Tobacco Use Types [...] have completed or the highest Armando, MEd, TOPPER PRESS OPERATOR, ALL) degree you have received? Sex [...] visit Aesthetic Medicine and Juanita Vaz, Surgery CUSTOMER FACILITIES SUPERVISOR, C.N.P. [address] [place] [address] (Wo rk) 09/08/2022 Comprehensive Visit [facility] Medicine and Lucero Pritchard Surgery M.D., Ph.D. [address] [place] [address] (Wo rk) documented as of this encounter Procedures Procedure Name Priority Date/Time Associated Diagnosis Comme nts CBC WITH Routine 07/01/2020 11:28 Leukocytosis Results for this DIFFERENTIAL, B AM CDT procedure ar e in the results section. documented in this encounter Results (ABNORMAL) CBC with Differential, Blood (07/01/2020 11:28 AM CDT) [facility] Method Time Signature Hemoglobin 13.8 11.6 - [...] Organization Address City/State/ZIP Code Phon e Number [facility] - [address] [place], [place] [address] [facility] [place] [address] [facility] [address] documented in this encounter Visit Diagnoses Diagnosis Leukocytosis documented in this encounter Care Teams Hand Cultivator Relationship Specialty Start Date End Date Elsewhere, Pcp PCP - General Internal Medicine 07/03/17 documented as of this encounter
--- OUTSIDE RECORDS SUMMARY | 2022-07-30 20:35 | XMS_ITS | Encounter Summary ---
:1945 Author Organization [facility] Address [address] [place] [address] Care Team Providers Name Role Phone Elsewhere, Pcp Primary Care Provider Unavailable Reason for Visit Reason Comments discharge planning Encounter Details Date Type Department Care Team Description 09/09/2020 Clinical Department of [facility], discharge plan iker Communication Orthopedic Surgery Parul Almonte in [facility] [phone] [address] [facility] (Work) [place] [address] Social History Tobacco Use Types Packs/Day Years [...] More than 4 times per year 01/28/2021 sikhism services? Do you belong to any clubs [...] have completed or the highest Armando, MEd, STAFF ANALYST, ALL) degree you have received? Sex Assigned at Date Recorded Female 07/26/2020 9:06 PM CDT documented as of this encounter Miscellaneous Notes Telephone Encounter - Parul Vazquez L.P.N. - 09/09/2020 9:46 AM ASPARAGUS BUNCHER Phone call concerning dismissal plans after Yamileth Ramona Kori's scheduled Left ALEKS on 09-11-[address] Apodaca. Spoke with the patient. The patient plans on staying at their caregiver's home. The role of caregiver and refrigerated national truck driver will be filled by the patient's adult child, Adi and [id number], Lesley. Patient will stay at Sons house [...] following references were used: nursing clinical judgement. RAGUS BUNCHER documented in this encounter Plan of Treatment Upcoming Encounters Date Type Specialty Care Team Description 09/08/2022 Procedure visit Aesthetic Medicine and Juanita Vaz, Surgery CALL MANAGER, C.N.P. [address] [place] [phone] (Charlotte bentley) 09/08/2022 Comprehensive Visit Aesthetic Medicine and Lucero Pritchard, Surgery M.DAnali, Ph.D. 200 [place] [phone] (Charlotte bentley) documented as of this encounter Visit Diagnoses Not on filedocumented in this encounter Care Teams Cfd Engineer Relationship Specialty Start Date End Date Elsewhere, Pcp PCP - General Internal Medicine 07/03/17 documented as of this encounter
--- OUTSIDE RECORDS SUMMARY | 2022-07-30 20:35 | XMS_ITS | Encounter Summary ---
:1945 Author Organization [facility] Address [address] [place] [address] Care Team Providers Name Role Phone Elsewhere, Pcp Primary Care Provider Unavailable Encounter Details Date Type Department Care Team Description 07/02/2020 Diagnostic Department of Jessica Hwang Hearing Otorhinolaryngology in [place], [place] Au.D. Bilateral (Primary [address] [facility] Dx) [place] [phone] Social History Tobacco Use Types Packs/Day [...] level of school Master's degree (e.g., Jody Almonet MS, 03/30/2019 you have completed or the highest Armando, MEd, SCCM ADMINISTRATOR, ALL) degree you have received? Sex [...] been remade. Hearing Aid Information Left Right Gauge Machine Operator [employer] ReSound Model Linx 3D 577 Linx 3D 577 Style BTE (abgbcq-cvp-gnf) BTE (yhjdrm-fmn-rbh) Serial Number [id number] Battery Size 13 13 ? Coupling Custom earmold, TRIMMER MACHINE#5 Custom earmold, TRIMMER MACHINE#5 ? Warranty Date 05/12/2022 05/12/2022 Trial Period [...] visit Aesthetic Medicine and Juanita Vaz, Surgery HEAD OF ACADEMIC TECHNOLOGY, C.N.P. [address] [place] [phone] (Charlotte bentley) 09/08/2022 Comprehensive Visit Aesthetic Medicine and Lucero Pritchard, Surgery MJayda, Ph.D. [address] [place] [phone] (Charlotte bentley) documented as of this encounter Visit Diagnoses Diagnosis Loss Hearing Sensorineural Bilateral - P rimary documented in this encounter Care Teams Top Frame Fitter Relationship Specialty Start Date End Date Elsewhere, Pcp PCP - General Internal Medicine 07/03/17 documented as of this encounter
--- OUTSIDE RECORDS SUMMARY | 2022-07-30 20:35 | XMS_ITS | Encounter Summary ---
:1945 Author Organization [facility] Address [address] [place] [address] Care Team Providers Name Role Phone Elsewhere, [...] have completed or the highest Armando, MEd, OFFSHORE DIVER, ALL) degree you have received? Sex Assigned at Date Recorded Female 07/26/2020 9:06 PM CDT documented as of this encounter Plan of Treatment Upcoming Encounters Date Type Specialty Care Team Description 09/08/2022 Procedure visit Aesthetic Medicine and Juanita Vaz, Surgery RETAIL BANKER, C.N.P. [address] [place] [phone] (Charlotte bentley) 09/08/2022 Comprehensive Visit Aesthetic Lucero Arita, Surgery M.D., Ph.D. [address] [place] [phone] (Charlotte bentley) documented as of this encounter [...]
--- OUTSIDE RECORDS SUMMARY | 2022-07-30 20:35 | XMS_ITS | Encounter Summary ---
:1945 Author Organization [facility] Address [address] [place] [address] Care Team Providers Name Role Phone Elsewhere, Pcp Primary Care Provider Unavailable Encounter Details Date Type Department Care Team Description 09/11/2020 Surgery [facility] OR Ángel Apodaca, ARTHROPLASTY TOTAL HIP, [address] [facility] Jody.DAnali DIRECT ANTERIOR. [place], [place] [address] [facility] [address] [place], [place] [phone] (Wo rk) Social History Tobacco Use Types [...] completed or the highest Armando, MEd, CUSTOMER SOLUTIONS ARCHITECT, ALL) degree you have received? Sex Assigned at Date Recorded Female 07/26/2020 9:06 PM CDT documented as of this encounter Last Filed Vital Signs Vital Sign Reading Time Taken Comments Blood Pressure 132/66 09/11/2020 6:07 AM FLUID DESIGNER Pulse 69 09/11/2020 6:07 AM FLUID DESIGNER Temperature 36.8 ??C (98.2 ??F) 09/11/2020 6:07 AM FLUID DESIGNER Respiratory Rate 16 09/11/2020 6:07 AM FLUID DESIGNER Oxygen Saturation 97% 09/11/2020 6:07 AM FLUID DESIGNER Inhaled Oxygen Concentration - - Weight 65.5 kg (144 lb 6.4 oz) 09/11/2020 6:07 AM FLUID DESIGNER Height 166 cm (5' 5.35) 09/11/2020 6:07 AM FLUID DESIGNER Body Mass Index 23.77 09/11/2020 6:07 AM FLUID DESIGNER documented in this encounter Discharge Summaries Steven Gupta M.D. - 09/12/2020 8:50 AM CST DISCHARGE SUMMARY BRIEF OVERVIEW Hospital: [facility] Discharge Provider: Ángel Apodaca M.D. [...] M.D.Rames, Richard D, M.D.Lee, Dustin R, M.D. [facility] RO[facility] OR DISCHARGE DISPOSITION Home or [...] ORDERED DURING THIS ADMISSION IP CONSULT TO HEAD BONE GRINDER MONEY COUNTER CONDITION AT DISCHARGE stable Discharge instructions were provided to the patient and caregiver(s). D DESIGNER documented in this encounter Discharge Instructions AttachmentsThe following attachments cannot be sent through Care Everywhere. Exercises for the Legs (Sitting) (Tanzanian)Ondansetron (By mouth, Into the mouth) (Tanzanian)Celecoxib (By mouth) (Tanzanian)Acetaminophen (By mouth) (Tanzanian) Oxycodone, Rapid Release (By mouth) (Tanzanian)Omeprazole (By mouth) (Tanzanian) Senna (By mouth) (Tanzanian)Aspirin (By mouth) (Tanzanian)documented in this encounter Medications at Time of [...] extremity. Educated and reviewed proper use ofleg per diem nurse. Supervision level assist required when patient utilized leg per diem nurse with transfer. Bed Mobility - Sit to Supine # of Assistants: 1 Level of Assistance: Minimal assistance Device: None Cuing: Verbal, Tactile Comments: Physical assist provided for the left lower extremity. Educated and reviewed proper use ofleg per diem nurse. Supervision level assist required when patient utilized leg per diem nurse with transfer. Bed Mobility - Scooting Level [...] 3-5 steps with a railing?: A Little -[facility] Basic Mobility (V.2) Raw Score: 19 -[facility] Basic Mobility (V.2) Standardized Score: 42.48 Interpretation: Clinicians answer the -[facility] Inpatient Short Form based on observed patient [...] to a walker upon discharge, purchased through [employer]. DME form filled out. Clinical Impression of [...] (min): 43 min Marianna Bob P.T., D.P.T. D DESIGNER Steven Gupta M.D. - 09/12/2020 6:01 AM [...] months Steven Gupta M.D. Please contact the [employer] service at [phone] with any questions or concerns regarding this patient. If outside of 06:00 - 18:00 on weekdays or any time on the weekend, please contact the Orthopedic Surgery house resident insulation power unit tender at [phone]. D DESIGNER Pb Marshall M.D. - 09/11/2020 3:25 PM [...] Consulted for gait training and mobilization per [facility] protocol Anticipated Disposition: Home likely tomorrow after PT Follow-up: Patient will follow-up with Dr. Apodaca in the clinic in approximately 3 months Marco Antonio Marshall M.D. Please contact the [facility] service at [phone] with any questions or concerns regarding this patient. If outside of 06:00 - 18:00 on weekdays or any time on the weekend, please contact the Orthopedic Surgery house resident insulation power unit tender at [phone]. D DESIGNER Reggie Gray - 09/11/2020 7:10 AM CST Encounter: AM Admit Jane Tradition: Sikh. Ms. Sheikh requested prayer before surgery. Shared prayer. Plan: Will remain available for spiritual care as needed or requested. Chaplains can be contacted bypaging [phone] ([facility]). D DESIGNER documented in this encounter Consult Notes Vini James M.T.S. - 09/12/2020 1:02 PM CST Encounter: Communion Situation: Communion has been requested for Yamileth Sheikh's room on 09/12/20. Patient was alertlying in bed and mentioned that she will be discharged today. Family: None Jane Tradition: The patient's mosque is Sikh. Communion: The Sacrament was administered with prayers and blessings. Plan: Will remain available for spiritual care as needed or requested. Chaplains can be contacted bypaging [phone] ([place]). Fr. Jakob James [facility] D DESIGNER Reggie Gray - 09/12/2020 12:11 PM CSTAssociated Order(s): IP CONSULT TO HEAD BONE GRINDER MONEY COUNTER Encounter: Spiritual Care Consult. Jane Tradition: Sikh. Ms. Sheikh requested communion. Referred to the Sikh chaplainfor follow up. Plan: Will remain available for spiritual care as needed or requested. Chaplains can be contacted bypaging [phone] ([facility]). D DESIGNER Yamileth King O.T. - 09/12/2020 10:58 AM [...] Prior Function / Occupational Profile Level of Linn: Independent with ADLs and functional transfers, Independent [...] Toilet: Standard Home Equipment Home Adaptive Equipment: Grease And Tallow Pumper Gait Devices Owned: Front-wheeled walker, Cane, Axillary [...] Therapist reviewed fall prevention strategies including using data scientist and modified golfer's lift as appropriate to [...] session: no Outcome Measures Current ADL Status: [facility] Inpatient Short Form: Putting on and taking [...] Standardized Score: 44.27 Interpretation: Clinicians answer the [facility] Inpatient Short Form based on observed [...] Prior Function / Occupational Profile Level of Linn: Independent with ADLs and functional transfers Lives With: Alone ADL Assistance: Independent Homemaking Assistance: Independent Driving: Independent Occupational Role: Retired Home Equipment Home Adaptive Equipment: Grease And Tallow Pumper Gait Devices Owned: Front-wheeled walker, Cane, Axillary [...] provided today: Rehabilitation After Total Hip Replacement ([id number]) and Modified due to direct anterior approach, [...] AM-PAC Basic Mobility (V.2) Raw Score: 17 [facility] Basic Mobility (V.2) Standardized Score: 39.67 Interpretation: Clinicians answer the [facility] Inpatient Short Form based on observed [...] min Total Treatment Time (min): 55 min Marianan Bob P.T., D.P.T. D DESIGNER documented in this encounter Nursing Notes Kymberly [...] doing stairs withoutbecoming dizzy/lightheaded. Patient dismissed from [facility] to [facility] with son providing transportation. Patient picked up prescriptionsof Zofran, Tramadol, Celebrex, Tylenol, Aspirin, Oxycodone, Prilosec and Senna from [facility] pharmacy upon dismissal. AVS was reviewed [...] from fall/fall injury Outcome: Adequate for Discharge D DESIGNER Lesley Ortez R.N. - 09/11/2020 6:25 PM [...] tylenol and ice. Patient refused additional medications. D DESIGNER documented in this encounter OR Notes Op Note - Ángel Apodaca M.D. - 09/11/2020 8:49 AM CST FULL OP NOTE Procedure(s) (LRB): ARTHROPLASTY TOTAL HIP, DIRECT ANTERIOR. (Left) Surgeon(s) and Role: * Ángel Apodaca M.D. - Primary * Pb Marshall M.D. - Ed Educational Aide * Steven Gupta M.D. - Other Shipping Team Leader Anesthesia Type Regional Pre-operative Diagnosis Primary Osteoarthritis Hip Left Post-operative Diagnosis Primary Osteoarthritis Hip Left Findings As expected. Complications None Description of Procedure The patient was brought to the OR at [facility]. The patient had spinal anesthesia performed by the anesthesia personnel. Local arthroplasty block was performed throughout the procedure. The patient was placed in a supine position on operative table. Both feet were placed in boots for the Lincoln table. The left hip was sterilely prepped [...] femoral component the femoral hook from the Lincoln bed was placed around the vastus ridge. [...] soft tissue tension. The real Biolox Delta Dpmpuqf38 mm femoral head +0 mm neck was [...] Implant Name Type Inv. Item Serial No. Licensing And Registration Director Lot No. LRB No. Used Action CMNT BN HI VISC PMMA 40 - [id number] Bone Cement CMNT BN HI VISC PMMA 40 [place] Left 1 Implanted CMNT BN HI VISC PMMA 40 - [id number] Bone Cement CMNT BN HI VISC PMMA 40 [place] Left 1 Implanted HIP RSTRC CMNT 24 - [id number] Hardware e.g. pins/screws/rods HIP RSTRC CMNT 24 [place] Left 1 Implanted cup Hip Implant [employer] [id number] Left 1 Implanted HIP SCRW EMP ACET 6.5X30 - [id number] Hardware e.g. pins/screws/rods HIP SCRW EMP ACET 6.5X30 [employer] [id number] Left 1 Implanted HIP SCRW EMP ACET 6.5X35 - [id number] Hardware e.g. pins/screws/rods HIP SCRW EMP ACET 6.5X35 [employer] [id number] Left 1 Implanted LNR EMP STD SZ 36F - [id number] Hip Implant LNR EMP STD SZ 36F [employer] [id number] Left 1 Implanted distal tip Hip Implant [employer] [id number] Left 1 Implanted stem Hip Implant [employer] [id number] Left 1 Implanted HIP HEAD DELTA CER 36MM, NEUT - [id number] Hip Implant HIP HEAD DELTA CER 36MM, NEUT [employer] [id number] Left 1 Implanted Ángel Apodaca M.D. D DESIGNER documented in this encounter Miscellaneous Notes Hospital Course - Steven Gupta M.D. - 09/12/2020 7:46 AM CST Surgery Information This Encounter Past Procedures (09/13/2019 to Today) Date Procedures Providers Location 09/11/2020 ARTHROPLASTY TOTAL HIP, DIRECT ANTERIOR. Ángel Apodaca M.D.Rames, Richard D, M.D.Lee, Dustin R, M.D. [facility] OR Yamileth Sheikh was taken [...] and any other co-managing teams dated 09/12/2020. D DESIGNER documented in this encounter Plan of Treatment Upcoming Encounters Date Type Specialty Care Team Description 09/08/2022 Procedure visit Aesthetic Medicine and Juanita Vza, Surgery FIRE CONTROL OFFICER, C.N.P. [address] [place] [phone] (Charlotte bentley) 09/08/2022 Comprehensive Visit Aesthetic Medicine Lucero Mckeon, Andreia Ma, Ph.D. [address] [place] [phone] (Charlotte bentley) documented as of this encounter Procedures Procedure Name Priority Date/Time Associated Diagnosis Comme nts POCT NONINVASIVE Routine 09/12/2020 6:23 Results for HGB AM FLUID DESIGNER this procedure are in the results section. CBC WITHOUT Routine 09/12/2020 4:32 Results for DIFFERENTIAL, B AM FLUID DESIGNER this procedu re are in the results section. DX HIP LEFT 2-3 RAD - Routine 09/11/2020 Results for VIEWS (most inpatients 11:23 AM FLUID DESIGNER this proced ure and all are in the outpatients) results section. FL FLUORO LESS THAN RAD - Routine 09/11/2020 Results for 1 HOUR (most inpatients 10:28 AM FLUID DESIGNER this proced ure and all are in the outpatients) results section. ARTHROPLASTY TOTAL 09/11/2020 7:16 Primary HIP - DIRECT AM FLUID DESIGNER Osteoarthritis Hip ANTERIOR Left documented in this encounter Results (ABNORMAL) Noninvasive HGB, POCT (09/12/2020 6:23 AM FLUID DESIGNER) [facility] gist Method Time Signature Noninvasive HGB, 10.2 (A) 11.6 - POCT 15.0 g/dL Comment: left index Specimen (Source) Anatomical Collection Method Collection Time Re ceived Time Location / / Volume Laterality Skin 09/12/2020 6:23 AM FLUID DESIGNER Sho Song APRN C.NAnaliPAnali LAB POCT ORDERABLES-MANUAL (ABNORMAL) CBC without Differential (09/12/2020 4:32 AM FLUID DESIGNER) [facility] gist Method Time Signature Hemoglobin 8.8 (L) 11.6 - 09/12/2020 DTL 15.0 g/dL 5:28 AM FLUID DESIGNER Hematocrit 26.7 (L) 35.5 - 09/12/2020 DTL 44.9 % 5:28 AM FLUID DESIGNER Erythrocytes 2.84 (L) 3.92 - 09/12/2020 DTL 5.13 5:28 AM FLUID DESIGNER x10(12)/L MCV 94.0 78.2 - 09/12/2020 DTL 97.9 fL 5:28 AM FLUID DESIGNER RBC Distrib Width 12.5 12.2 - 09/12/2020 DTL 16.1 % 5:28 AM FLUID DESIGNER Platelet Count 116 (L) 157 - 371 09/12/2020 DTL x10(9)/L 5:28 AM FLUID DESIGNER Leukocytes 11.8 (H) 3.4 - 9.6 09/12/2020 DTL x10(9)/L 5:28 AM FLUID DESIGNER Specimen Anatomical Collection Method Collection Time Receive d Time (Source) Location / / Volume Laterality Blood (Blood, 09/12/2020 4:32 AM 09/12/20 20 5:19 Venous) FLUID DESIGNER AM FLUID DESIGNER Pb Marshall M.D. LAB BLOOD ADD-ON Performing Organization Address City/State/ZIP Code Phon e Number [facility] - [address] [place], [place] [phone] [facility] [place] [address] [facility] [address] DX Hip Left 2-3 Views (09/11/2020 11:23 AM FLUID DESIGNER) Anatomical Region Laterality Modality Lower Extremity, Hip, Musculoskeletal RST LOS, Left Computed Radiography Musculoskeletal ARZ LOS, Muskuloskeletal FLA LOS Specimen (Source) Anatomical Collection Method Collection Time Re ceived Time Location / / Volume Laterality 09/11/2020 11:24 AM FLUID DESIGNER Impressions 09/11/2020 11:24 AM FLUID DESIGNER Postop left ALEKS. Right ALEKS. Sacral stimulator incompletely included. Narrative 09/11/2020 11:24 AM FLUID DESIGNER EXAM: ??DX HIP LEFT 2-3 VIEWS Procedure Note Benito Brown M.D. - 09/11/2020For matting of this note might be different from the original. EXAM: DX HIP LEFT 2-3 VIEWS IMPRESSION: Postop left ALEKS. Right ALEKS. Sacral stimu lator incompletely included. Sho Song APRN, C.N.P. [facility] PRO CEDURES FL Fluoro Less Than 1 Hour (09/11/2020 10:28 AM FLUID DESIGNER) Specimen (Source) Anatomical Location Collection Method / Collectio n Time Received Time / Laterality Volume Narrative [id number] - 09/11/2020 10:29 AM FLUID DESIGNER This exam does not require a radiologist review or interpretation. Please refer to the patient's medical record on this date for clinical details. Maria Victoria Jain APRN FLUOROSCOPY PROCEDURES Performing Organization Address City/State/ZIP Code Phon e Number [id number] NA documented in this encounter Visit Diagnoses Diagnosis Difficulty Walking Orthopedic Hip Cause Primary Osteoarthritis Hip Left documented in this encounter Admitting Diagnoses Diagnosis Primary Osteoarthritis Hip Left documented in this encounter Administered Medications Inactive Administered Medications - up to 3 most recent administrations Medication Order MAR Action Action Date Dose Rate Site acetaminophen tablet 1,000 mg Given 09/11/2020 7:10 AM FLUID DESIGNER 1,000 mg (TYLENOL) 1,000 mg, oral, Once, On Wed09/11/20 at 0700, For 1 dose, Pre-Op acetaminophen tablet 1,000 mg (TYLENOL) Given 09/12/2020 1:54 PM FLUID DESIGNER 1,000 mg 1,000 mg, oral, Every 6 hours, First dose on Wed09/11/20 at 1400 Given 09/12/2020 8:05 AM FLUID DESIGNER 1,000 mg Given 09/12/2020 3:00 AM FLUID DESIGNER 1,000 mg aspirin chewable tablet 81 mg Given 09/12/2020 8:04 AM FLUID DESIGNER 81 mg 81 mg, oral, 2 times daily, First dose on Wed09/11/20 at 2100 Given 09/11/2020 8:29 PM FLUID DESIGNER 81 mg ceFAZolin in dextrose (iso-os) IVPB 2 New Bag 09/12/2020 12:14 AM FLUID DESIGNER 2 g 200 mL/hr g (ANCEF) 2 g, intravenous, at 200 mL/hr, Administer over 30 Minutes, Every 8 hours, First dose on Wed09/11/20 at 1630, For 2 doses, Start within 8 hours of last IV dose. premix bag, Drug Monitoring Program: Pharmacist to adjust medication dosing based on indication and drug clearance factors., Indications: Prophylaxis, surgical New Bag 09/11/2020 4:40 PM FLUID DESIGNER 2 g 200 mL/hr celecoxib capsule 200 mg (CeleBREX) Given 09/11/2020 7:11 AM FLUID DESIGNER 200 mg 200 mg, oral, Once, On Wed09/11/20 at 0700, For 1 dose, Pre-Op celecoxib capsule 200 mg (CeleBREX) Given 09/12/2020 8:05 AM FLUID DESIGNER 200 mg 200 mg, oral, Daily, First dose on Jessica 09/12/20 at 0900 dexmedeTOMIDine 4 mcg/mL Rate/Dose Change 09/11/2020 10:08 0.7 mcg/ kg/hr 11.4 mL/hr in NaCl 0.9% 100 mL AM FLUID DESIGNER infusion (PRECEDEX) 0.1-1.5 mcg/kg/hr ? 65.5 kg [...] care unit Rate/Dose Change 09/11/2020 9:40 AM FLUID DESIGNER 0.8 mcg/kg/hr 13.1 mL/hr Rate/Dose Change 09/11/2020 9:06 AM FLUID DESIGNER 1 mcg/kg/hr 16.3 mL/hr epinephrine 10 mcg/mL Given 09/11/2020 10:02 AM FLUID DESIGNER 100 mL Left Upper Hip (1:100,000) in NaCl 0.9% soak solution (VIAL) 100 mL, other, Once in surgery, OR use only, Starting on Wed09/11/20 at 0641, For 1 dose, Intra-Op, *TO SOAK SPONGES* gentamicin powder 2.4 g (for Given 09/11/2020 10:03 AM FLUID DESIGNER 2 via ls Left Upper Hip bone [...] 150 mg (AVAPRO) Given 09/12/2020 8:05 AM FLUID DESIGNER 150 mg 150 mg, oral, Every morning, First dose on Jessica 09/12/20 at 0900 lactated Ringer's bolus 500 mL New Bag 09/11/2020 7:25 AM FLUID DESIGNER 500 mL 1000 mL/hr 500 mL, intravenous, at 1,000 mL/hr, Administer over 30 Minutes, Once, On Wed09/11/20 at 0700, For 1 dose, Pre-Op lactated Ringer's bolus 500 mL New Bag 09/12/2020 7:36 AM FLUID DESIGNER 500 mL 500 mL/hr 500 mL, intravenous, at 500 mL/hr, Administer over 1 Hours, Once, On Jessica 09/12/20 at 0630, For 1 dose NaCl 0.9% infusion New Bag 09/12/2020 12:12 AM FLUID DESIGNER 20 mL/hr 20 mL/hr 125 mL/hr, intravenous, Continuous, Starting on Wed09/11/20 at 1245, Discontinue fluids when patient is tolerating 500 ml of oral fluid Rate/Dose Verify 09/11/2020 7:30 PM FLUID DESIGNER 125 mL/hr 125 mL/hr New Bag 09/11/2020 1:05 PM FLUID DESIGNER 125 mL/hr 125 mL/hr omeprazole DR capsule 40 mg (PriLOSEC) Given 09/12/2020 6:29 AM FLUID DESIGNER 40 mg 40 mg, oral, Daily before [...] mL Left Upper Hip 0.9% irrigation solution FLUID DESIGNER irrigation, Once in surgery, OR use only, Starting on Wed09/11/20 at 0641, For 1 dose, Intra-Op, IRRIGATION USE ONLY ropivacaine (PF) 100 mg, Given 09/11/2020 10:25 AM FLUID DESIGNER 60 mL Left Upper Hip EPINEPHrine 50 mcg, ketorolac 15 mg in NaCl 0.9% 60 mL injection (ARTHROPLASTY BLOCK 50-74.9 kg) 60 mL, infiltration, Once in surgery, OR use only, Starting on Wed09/11/20 at 0641, For 1 dose, Intra-Op, *Not for IV use* ropivacaine (PF) 100 mg, Given 09/11/2020 10:25 AM FLUID DESIGNER 60 mL Left Upper Hip EPINEPHrine 50 mcg, ketorolac 15 mg in NaCl 0.9% 60 mL injection (ARTHROPLASTY BLOCK 50-74.9 kg) 60 mL, infiltration, Once in surgery, OR use only, Starting on Wed09/11/20 at 0641, For 1 dose, Intra-Op, *Not for IV use* rosuvastatin tablet 5 mg (CRESTOR) Given 09/12/2020 8:04 AM FLUID DESIGNER 5 mg 5 mg, oral, Every morning, First dose on Jessica 09/12/20 at 0900 scopolamine base 1 mg Medication Applied 09/11/2020 7:12 AM 1 patch Behind Right over 3 days 1 patch FLUID DESIGNER Ear (TRANSDERM SCOP) 1 patch, transdermal, Administer over 24 Hours, Once as needed, Based on clinical assessment of mental status and history of PONV, Starting on Wed09/11/20 at 0655, For 1 dose, Pre-Op, Contains 1.5 mg to deliver 1 mg/72 hours. sennosides-docusate sodium 8.6-50 mg per Given 09/12/2020 8:04 A M FLUID DESIGNER 1 tablet tablet 1 tablet (SENOKOT-S) 1 tablet, oral, 2 times daily, First dose on Wed09/11/20 at 2100, Do not give if patient has diarrhea. Given 09/11/2020 8:29 PM FLUID DESIGNER 1 tablet documented in this encounter Active and Recently Administered Medications Times are shown in FLUID DESIGNER. Scheduled Medication Order 09/10/2020 09/11/2020 09/12/2020 acetaminophen [...] 845 (Given - Provider: Levy Mosley APRN, PATEL) 2,000 mg (rounded from 1,692.5 mg = [...] (CRESTOR) 803 (Given - Provider: Kymberly Knight RJono) 5 mg, oral, Every morning, First dose [...] 0012 (New Bag - Provider: Latanya Carrizales RAnaliNAnali)0740 (Stopped - Provider: Kymberly Knight RAnaliNAnali) 125 mL/hr, intravenous, Continuous, Star ting on Wed09/11/20 at 1245, Discontinue fluids when patient is tolerating 500 ml of oral fluid PRN Medication Order 09/10/2020 09/11/2020 09/12/2020 calcium carbonate chewable tablet 400 mg of calcium (TUMS) 400 mg of calcium, oral, Every 2 hour OK N, indigestion, Starting Wed09/11/20 at 1243, Doses [...] cement) (COMPLETED) 1003 (Given - Provider: Ángel Apdoaca M.D.) 2.4 g (2 vial), miscellaneous, Once [...] order.
documented in this encounter Care Teams Hogshead Opener Relationship Specialty Start Date End Date Elsewhere, Pcp PCP - General Internal Medicine 07/03/17 documented as of this encounter
--- OUTSIDE RECORDS SUMMARY | 2022-07-30 20:35 | XMS_ITS | Encounter Summary ---
:1945 Author Organization [facility] Address [address] [place] [address] Care Team Providers Name Role Phone Elsewhere, Pcp Primary Care Provider Unavailable Reason for Referral Outpatient (Routine) - Closed Specialty Diagnoses / Procedures Referred By Contact Refer red To Contact Diagnoses Varicose Vein Lower Extremity With Pain B[facility] Sclerotherapy C.N.P. [address] [place], [place] [phone] Referral ID Status Reason Start Date Expiration Date Visits Requ ested Visits Authorized [id number] Closed 08/01/2020 08/01/2021 5 5 Reason for Visit Outpatient (Routine) - Closed Specialty Diagnoses / Procedures Referred By Contact Refer red To Contact Vascular Medicine Juanita Vaz APRN [facility] C.N.P. [address] [place] [address] Referral ID Status Reason Start Date Expiration Date Visits Requ ested Visits Authorized [id number] Closed 06/24/2020 06/24/2021 1 1 Encounter Details Date Type Department Care Team Description 08/01/2020 Office Visit Department of Juanita Vaz, Varicose Vein Lower Extremity With Pain Bilateral (Primary Dx); Vascular Medicine in CLAUDIA, C.N.P . Insufficiency Venous Peripheral [place], [place] 200 [facility] [address] [place] [phone] Social History Tobacco Use Types Packs/Day Years [...] have completed or the highest Armando, MEd, ENGINEERING DESIGN MANAGER, ALL) degree you have received? Sex [...] in this encounter Progress Notes Juanita Vaz, MOTION PICTURE ACTOR, C.N.P. - 08/01/2020 4:00 PM CDT SUBJECTIVE [...] of the content Juanita Vaz APRN, C.N.P. UCT PLANNER documented in this encounter Plan of Treatment Upcoming Encounters Date Type Specialty Care Team Description 09/08/2022 Procedure visit Aesthetic Medicine and Juanita Vaz, Surgery CLAUDIA, C.N.P. [address] [place] [address] (Charlotte bentley) 09/08/2022 Comprehensive Visit Aesthetic Medicine Lucero Mckeon Surgery Francesca, Ph.D. [address] [place] [address] (Charlotte bentley) Scheduled Orders Name Type Priority [...] of legs were obtained after consent using [facility] approved and s Merchant View device and loaded to patient's medical record. [...] Number of injections: ??Approximately 75 -100 injections [place] used: 30 gauge Complications: ??No apparent complicatio [...] of legs were obtained after consent using [facility] approved [employer] s Merchant View device and loaded to patient's medical record. [...] Number of injections: ??Approximately 75 -100 injections [place] used: 30 gauge Complications: ??No apparent complicatio [...] Primary documented in this encounter Care Teams Computer Trainer Relationship Specialty Start Date End Date Elsewhere, Pcp PCP - General Internal Medicine 07/03/17 documented as of this encounter
--- OUTSIDE RECORDS SUMMARY | 2022-07-30 20:35 | XMS_ITS | Encounter Summary ---
:1945 Author Organization [facility] Address [address] [place] [address] Care Team Providers Name Role Phone Elsewhere, Pcp Primary Care Provider Unavailable Encounter Details Date Type Department Care Team Description 07/31/2020 Clinical Communication Preoperative Cece Sanchez Evaluation Center in [place], [place] [address] [facility] [address] [place] [phone] Social History Tobacco Use Types Packs/Day Years [...] or relatives? How often do you attend oriental orthodox or More than 4 times per year 01/28/2021 spiritism services? Do you belong to any clubs or Yes 01/28/2021 organizations such as oriental orthodox groups, unions, fraternal or athletic groups, [...] have completed or the highest Armando, MEd, CLAIMS EXAMINER, ALL) degree you have received? Sex Assigned [...] visit Aesthetic Medicine and Juanita Vaz, Surgery CAMPUS RECRUITER, C.N.P. [address] [place] [phone] (Charlotte bentley) 09/08/2022 Comprehensive Visit Aesthetic Medicine Lucero Mckeon, Surgery MJayda, Ph.D. [address] [place] [phone] (Charlotte bentley) documented as of this encounter Visit Diagnoses Not on filedocumented in this encounter Care Teams Cracking And Fanning Machine Operator Relationship Specialty Start Date End Date Elsewhere, Pcp PCP - General Internal Medicine 07/03/17 documented as of this encounter
--- OUTSIDE RECORDS SUMMARY | 2022-07-30 20:35 | XMS_ITS | Encounter Summary ---
:1945 Author Organization [facility] Address [address] [place] [address] Care Team Providers Name Role Phone Elsewhere, Pcp Primary Care Provider Unavailable Reason for Visit Reason Comments Communication Encounter Details Date Type Department Care Team Description 08/26/2020 Clinical Communication Department of Ángel Apodaca Orthopedic Surgery [place] Moe in [address] [facility] [address] [place], [place] [phone] (Work) [phone] Social History Tobacco Use Types Packs/Day Years [...] have completed or the highest Armando, MEd, BUTTON MAKER, ALL) degree you have received? Sex Assigned at Date Recorded Female 07/26/2020 9:06 PM CDT documented as of this encounter Miscellaneous Notes Telephone Encounter - Sho Song APRN, C.N.P. - 08/27/2020 11:15 AM ORACLE APPLICATIONS ANALYST Returned call to patient and discussed the approximate time on how long someone should be with her after surgery. All further questions answered. LE APPLICATIONS ANALYST Telephone Encounter - Bibi Crawford I - 08/26/2020 2:50 PM CST Patient called with a question: how long after her surgery can the patient be home alone. Please call her to discuss. LE APPLICATIONS ANALYST documented in this encounter Plan of Treatment Upcoming Encounters Date Type Specialty Care Team Description 09/08/2022 Procedure visit Aesthetic Medicine and Juanita Vaz, Surgery CLAUDIA, C.N.P. [address] [place] [phone] (Wo rk) 09/08/2022 Comprehensive Visit Aesthetic Medicine Lucero Mckeon, Surgery M.DAnali, Ph.D. [address] [place] [phone] (Wo rk) documented as of this encounter Visit Diagnoses Not on filedocumented in this encounter Care Teams News Producer Relationship Specialty Start Date End Date Elsewhere, Pcp PCP - General Internal Medicine 07/03/17 documented as of this encounter
--- OUTSIDE RECORDS SUMMARY | 2022-07-30 20:35 | XMS_ITS | Encounter Summary ---
:1945 Author Organization [facility] Address [address] [place] [address] Care Team Providers Name Role Phone Elsewhere, Pcp Primary Care Provider Unavailable Encounter Details Date Type Department Care Team Description 09/10/2020 Clinical Communication Division of Merrill Harris Endocrinology in [place], [place] [address] [facility] [address] [place] [phone] Social History Tobacco Use Types Packs/Day Years [...] completed or the highest Armando, MEd, HOME HEALTH LVN, ALL) degree you have received? Sex Assigned at Date Recorded Female 07/26/2020 9:06 PM CDT documented as of this encounter Miscellaneous Notes Telephone Encounter - Merrill Harris M.D. - 09/12/2020 10:50 AM CST I reviewed the medical records from Ms. Sheikh's panama hat blocker. Thanks for the note. ER SPORTS MANAGER Telephone Encounter - Lisa Craig - 09/10/2020 11:48 AM CST Outside records received from [facility]. Viewable under the Media tab. Thanks. Lisa Houston Hydrologic Engineer [phone] ER SPORTS MANAGER documented in this encounter Plan of Treatment Upcoming Encounters Date Type Specialty Care Team Description 09/08/2022 Procedure visit Aesthetic Medicine and Juanita Vaz, Surgery CASEWORK MANAGER, C.N.P. [address] [place] [phone] (Charlotte bentley) 09/08/2022 Comprehensive Visit Aesthetic Medicine Lucero Mckeon Surgery MJayda, Ph.D. [address] [place] [address] (Charlotte bentley) documented as of this encounter Visit Diagnoses Not on filedocumented in this encounter Care Teams Fabric Separator Operator Relationship Specialty Start Date End Date Elsewhere, Pcp PCP - General Internal Medicine 07/03/17 documented as of this encounter
--- OUTSIDE RECORDS SUMMARY | 2022-07-30 20:35 | XMS_ITS | Encounter Summary ---
:1945 Author Organization [facility] Address [address] [place] [address] Care Team Providers Name Role Phone Elsewhere, Pcp Primary Care Provider Unavailable Encounter Details Date Type Department Care Team Description 09/11/2020 Anesthesia Event [facility] MAIN OR Pelon Manjarrez D.O. [address] [place] [address] [address] [facility] [place] [phone] Anesthesia Record Procedure Summary Procedure Name [...] h andoff to the receiving staff during [facility] we 1. Identified the patient 2. [...] 1418 by Left; Jaylen manzo Alison M, [facility] ic-Background mastisol; 06/24/21 R.N. , Scheduling Automated (Removed by background Batch Job completion utility); 1418 (Removed by background completion utility) Peripheral IV Placement Date: 09/11/20724 by 09/12/20 1340 b y 09/11/20; Placement Eugene Robbisn Clarissa J, Time: 724; Catheter Krishna Jha R.N. Size: 18 G; Orientation: Anterior, Right; Site Prep: Alcohol; Technique: Anatomical landmarks; Inserted by: Gisselle YBERS; Insertion Attempts: 1; Removal Date: 09/12/20; Removal [...] have completed or the highest Armando, MEd, HEADER DOCK, ALL) degree you have received? Sex Assigned at Date Recorded Female 07/26/2020 9:06 PM CDT documented as of this encounter OR Notes Anesthesia Postprocedure Evaluation - Vinny Garay D.O. - 09/11/2020 1:00 PM CST Patient: Yamileth Sheikh Procedure Summary Date: 09/11/20 Room / Location: [place] [address] / [facility] in [place], [place] Anesthesia Start: 746 Anesthesia Stop: 1119 [...] Post Op nausea/vomiting: none Hydration status: euvolemic SOLUTION MAKER Anesthesia Procedure Notes - Vinny Garay D.O. - 09/11/2020 8:26 AM BATH SOLUTION MAKER Associated Order(s): Regional Block Regional Block Date/Time: [...] fellow participated in the case, and the call center consultant was present for the entire case. SOLUTION MAKER Anesthesia Preprocedure Evaluation - Pelon Manjarrez D.O. - 09/11/2020 7:05 AM CST Preprocedure Anesthesia & H&P Assessment Procedure Summary Anesthesia Start Date/Time: 09/11/20 0747 Procedure: ARTHROPLASTY TOTAL HIP, DIRECT ANTERIOR. 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 Location: [place] [address] / [facility] in [place], [place] Providers: Ángel Apodaca M.D. Pertinent components [...] with patient /legal guardian or through an educational interpreter. Risks/Benefits/Alternatives of Blood transfusion discussed with patient / legal guardian, including an opportunity to ask questions and/or decline some or all transfusion therapies. The patient / legalguardian consented to the use of all blood products, as deemed medically necessary Approval to Proceed: approved for anesthesia SOLUTION MAKER documented in this encounter Plan of Treatment Upcoming Encounters Date Type Specialty Care Team Description 09/08/2022 Procedure visit Aesthetic Medicine and Juanita Vaz, Surgery MEDICAL LIAISON, C.N.P. [address] [place] [phone] (Wo rk) 09/08/2022 Comprehensive Visit Aesthetic Medicine and Lucero Pritchard, Surgery MJayda, Ph.D. [address] [place] [phone] (Wo rk) documented as of this encounter Procedures Procedure Name Priority Date/Time Associated Comments Diagnosis ANESTHESIA REGIONAL Routine 09/11/2020 8:26 AM Re sults for this BLOCK BATH SOLUTION MAKER procedure are i n the results section. documented in this encounter Results Regional Block (09/11/2020 8:26 AM BATH SOLUTION MAKER) Narrative Pelon Manjarrez D.O. - 09/11/2020 8: 26 AM BATH SOLUTION MAKER Vinny Garay D.O. ? 09/11/2020 ??8:26 AM [...] partici pated in the case, and the call center consultant was present for the entire ca se. Pelon Manjarrez D.O. PROCEDURE/MINOR SURGICAL ORD ERABLES documented in this encounter Visit Diagnoses Not on filedocumented in this encounter Administered Medications Inactive Administered Medications - up to 3 most recent administrations Medication Order MAR Action Action Date Dose Rate Site albumin human 5 % injection New Bag 09/11/2020 10:05 AM BATH SOLUTION MAKER intravenous, Continuous Infusion: Per Instructions PRN, Starting on Wed09/11/20 at 0936, Anesthesia Intra-op New Bag 09/11/2020 9:36 AM BATH SOLUTION MAKER bupivacaine PF 0.5 % (5 mg/mL) injection Given 09/11/2020 8:05 A M BATH SOLUTION MAKER 2.2 mL (MARCAINE) As needed, Starting on Wed09/11/20 at 0805, Anesthesia Intra-op ceFAZolin injection 2,000 mg (ANCEF) Given 09/11/2020 8:46 AM BATH SOLUTION MAKER 2 g 2,000 mg (rounded from 1,692.5 [...] dexAMETHasone injection (DECADRON) Given 09/11/2020 8:15 AM BATH SOLUTION MAKER 8 mg As needed, Starting on Wed09/11/20 at 0815, Anesthesia Intra-op dexmedeTOMIDine 4 mcg/mL Rate/Dose Change 09/11/2020 10:08 0.7 mcg/ kg/hr 11.4 mL/hr in NaCl 0.9% 100 mL AM BATH SOLUTION MAKER infusion (PRECEDEX) 0.1-1.5 mcg/kg/hr ? 65.5 kg [...] care unit Rate/Dose Change 09/11/2020 9:40 AM BATH SOLUTION MAKER 0.8 mcg/kg/hr 13.1 mL/hr Rate/Dose Change 09/11/2020 9:06 AM BATH SOLUTION MAKER 1 mcg/kg/hr 16.3 mL/hr ePHEDrine (PF) injection Given 09/11/2020 11:17 AM BATH SOLUTION MAKER 5 mg As needed, Starting on Wed09/11/20 at 0939, Anesthesia Intra-op Given 09/11/2020 10:52 AM BATH SOLUTION MAKER 5 mg Given 09/11/2020 10:07 AM BATH SOLUTION MAKER 5 mg fentaNYL injection (SUBLIMAZE) Given 09/11/2020 10:39 AM BATH SOLUTION MAKER 25 mcg intravenous, As needed, Starting on Wed09/11/20 at 0751, Anesthesia Intra-op Given 09/11/2020 8:49 AM BATH SOLUTION MAKER 25 mcg Given 09/11/2020 8:23 AM BATH SOLUTION MAKER 25 mcg glycopyrrolate injection (ROBINUL) Given 09/11/2020 8:23 AM BATH SOLUTION MAKER 0.2 mg As needed, Starting on Wed09/11/20 at 0823, Anesthesia Intra-op Given 09/11/2020 8:19 AM BATH SOLUTION MAKER 0.2 mg hydrALAZINE injection (APRESOLINE) Given 09/11/2020 9:10 AM BATH SOLUTION MAKER 10 mg As needed, Starting on Wed09/11/20 at 0910, Anesthesia Intra-op labetalol injection (NORMODYNE,TRANDATE) Given 09/11/2020 9:07 AM BATH SOLUTION MAKER 10 mg As needed, Starting on Wed09/11/20 at 0854, Anesthesia Intra-op Given 09/11/2020 9:04 AM BATH SOLUTION MAKER 10 mg Given 09/11/2020 9:01 AM BATH SOLUTION MAKER 5 mg lactated ringers New Bag 09/11/2020 9:05 AM BATH SOLUTION MAKER intravenous, Continuous Infusion: Per Instructions PRN, Starting on Wed09/11/20 at 0748, Anesthesia Intra-op New Bag 09/11/2020 7:48 AM BATH SOLUTION MAKER midazolam (PF) injection (VERSED) Given 09/11/2020 10:39 AM BATH SOLUTION MAKER 0.5 mg intravenous, As needed, Starting on Wed09/11/20 at 0751, Anesthesia Intra-op Given 09/11/2020 9:40 AM BATH SOLUTION MAKER 0.5 mg Given 09/11/2020 9:06 AM BATH SOLUTION MAKER 0.5 mg ondansetron (PF) injection (ZOFRAN) Given 09/11/2020 10:25 AM BATH SOLUTION MAKER 4 mg As needed, Starting on Wed09/11/20 at 1025, Anesthesia Intra-op phenylephrine 80 mcg/mL in New Bag 09/11/2020 9:54 AM 0.2 mcg/kg/m in 9.83 mL/hr NaCl 0.9% 250 mL infusion BATH SOLUTION MAKER Continuous Infusion: Per Instructions PRN, Starting on Wed09/11/20 at 0954, Anesthesia Intra-op phenylephrine injection Given 09/11/2020 10:07 AM BATH SOLUTION MAKER 100 mcg As needed, Starting on Wed09/11/20 at 0939, Anesthesia Intra-op Given 09/11/2020 9:49 AM BATH SOLUTION MAKER 100 mcg Given 09/11/2020 9:43 AM BATH SOLUTION MAKER 50 mcg tranexamic acid in NaCl IVPB 1,000 mg Given 09/11/2020 8:[address] 1 g (CYKLOKAPRON) 1,000 mg (1 g), intravenous, at 300 mL/hr, Administer over 20 Minutes, Once, On Wed09/11/20 at 0645, For 1 dose, Intra-Op, Administer in OR upon induction premix bag tranexamic acid in NaCl IVPB 1,000 mg Given 09/11/2020 10:29 AM BATH SOLUTION MAKER 1 g (CYKLOKAPRON) 1,000 mg (1 g), intravenous, at 300 mL/hr, Administer over 20 Minutes, Once, On Wed09/11/20 at 0645, For 1 dose, Intra-Op, Administer in OR just before dropping tourniquet premix bag documented in this encounter Care Teams Internet E Commerce Specialist Relationship Specialty Start Date End Date Elsewhere, Pcp PCP - General Internal Medicine 07/03/17 documented as of this encounter
--- OUTSIDE RECORDS SUMMARY | 2022-07-30 20:35 | XMS_ITS | Encounter Summary ---
:1945 Author Organization [facility] Address [address] [place] [address] Care Team Providers Name Role Phone Elsewhere, Pcp Primary Care Provider Unavailable Reason for Referral Outpatient (Routine) - Closed Specialty Diagnoses / Procedures Referred By Contact Refer red To Contact Vascular Surgery Michele Mello M.D. [facility] [address] [place] [phone] Referral ID Status Reason Start Date Expiration Date Visits Requ ested Visits Authorized [id number] Closed 08/15/2020 08/15/2021 1 1 Scheduling Instructions Vein patient. Put in vein slot Y MACHINE OPERATOR FARMWORKER Encounter Details Date Type Department Care Team Description 08/15/2020 Orders Only Division of Vascular and Jose Gonzalez, Endovascular Surgery in [place], [place] [address] [place] [address] [place] [phone] Social History Tobacco Use Types Packs/Day Years [...] 01/28/2021 organizations such as tenriism groups, unions, fraMapMyFitness or athletic groups, or school groups? How [...] have completed or the highest Armando, MEd, INTERPRETIVE NATURALIST, ALL) degree you have received? Sex Assigned at Date Recorded Female 07/26/2020 9:06 PM CDT documented as of this encounter Plan of Treatment Upcoming Encounters Date Type Specialty Care Team Description 09/08/2022 Procedure visit Aesthetic Medicine and Juanita Vaz, Surgery SPOT FACER, C.N.P. [address] [place] [phone] ( rk) 09/08/2022 Comprehensive Visit Aesthetic Medicine Lucero Mckeon, Surgery M.D., Ph.D. [address] [place] [phone] ( rk) Scheduled Referrals Name Type Priority Associated Diagnoses Order S chedule Vascular Surgery Outpatient Referral Routine Expe cted: office visit 12/13/2020 (clinic) (Approximate), Expires: 08/15/2023 documented as of this encounter Visit Diagnoses Not on filedocumented in this encounter Care Teams Front Services Agent Relationship Specialty Start Date End Date Elsewhere, Pcp PCP - General Internal Medicine 07/03/17 documented as of this encounter
--- OUTSIDE RECORDS SUMMARY | 2022-07-30 20:35 | XMS_ITS | Encounter Summary ---
:1945 Author Organization [facility] Address [address] [place] [address] Care Team Providers Name Role Phone Elsewhere, Pcp Primary Care Provider Unavailable Encounter Details Date Type Department Care Team Description 07/31/2020 Clinical Communication Department of Ángel Apodaca Orthopedic Surgery javier Moe M.D. [place], [place] [address] [facility] [address] [place] [phone] Social History Tobacco Use Types Packs/Day Years [...] completed or the highest Armando, MEd, MANAGER CAR, ALL) degree you have received? Sex Assigned [...] and Juanita Vaz, Surgery CLAUDIA, C.N.P. [address] [place] [phone] (Charlotte rk) 09/08/2022 Comprehensive Visit Aesthetic Medicine and Lucero Pritchard, Surgery M.DAnali, Ph.D. [address] [place] [phone] (Wo rk) documented as of this encounter Visit Diagnoses Not on filedocumented in this encounter Care Teams Wellness Assistant Relationship Specialty Start Date End Date Elsewhere, Pcp PCP - General Internal Medicine 07/03/17 documented as of this encounter
--- OUTSIDE RECORDS SUMMARY | 2022-07-30 20:35 | XMS_ITS | Encounter Summary ---
:1945 Author Organization [facility] Address [address] [place] [address] Care Team Providers Name Role Phone Elsewhere, Pcp Primary Care Provider Unavailable Reason for Visit Reason Comments COVID Inquiry Encounter Details Date Type Department Care Team Description 08/23/2020 Clinical Communication Department of Juanita Vaz Inquiry Vascular Medicine in R, WAITER/WAITRESS FIRST CLASS, C. N.P. [place], [place] [address] [facility] [address] [place] [phone] Social History Tobacco Use Types Packs/Day Years [...] have completed or the highest Armando, MEd, MULTILITH OPERATOR, ALL) degree you have received? Sex [...] F2F?: Greater than 30 days in [facility] (End screening - run decision tree and schedule as appropriate) Plan: Endpoint recommendation: Followed regional OTG *Reminder if sending patient for testing in [facility] or [facility], an email notification is required. AIN HEMMER AUTOMATIC documented in this encounter Plan of Treatment Upcoming Encounters Date Type Specialty Care Team Description 09/08/2022 Procedure visit Aesthetic Medicine and Juanita Vaz, Surgery WAITER/WAITRESS FIRST CLASS, C.N.P. [address] [place] [phone] (Charlotte bentley) 09/08/2022 Comprehensive Visit Aesthetic Medicine Lucero Mckeon, Surgery M.D., Ph.D. [address] [place] [phone] (Charlotte bentley) documented as of this encounter Visit Diagnoses Not on filedocumented in this encounter Care Teams Qa Intern Relationship Specialty Start Date End Date Elsewhere, Pcp PCP - General Internal Medicine 07/03/17 documented as of this encounter
--- OUTSIDE RECORDS SUMMARY | 2022-07-30 20:35 | XMS_ITS | Encounter Summary ---
:1945 Author Organization [facility] Address [address] [place] [address] Care Team Providers Name Role Phone Elsewhere, Pcp Primary Care Provider Unavailable Encounter Details Date Type Department Care Team Description 09/10/2020 Education Department of Sho Song, Primary Os teoarthritis Orthopedic Surgery in [facility], C.N. P. Hip Left [place], [place] [address] [facility] [address] [place] [phone] [phone] Social History Tobacco Use Types Packs/Day Years [...] or relatives? How often do you attend spiritism or More than 4 times per year 01/28/2021 zoroastrianism services? Do you belong to any clubs or Yes 01/28/2021 organizations such as spiritism groups, unions, fraternal or athletic groups, or [...] have completed or the highest Armando, MEd, MEAL COOKER, ALL) degree you have received? Sex Assigned at Date Recorded Female 07/26/2020 9:06 PM CDT documented as of this encounter Progress Notes Chucho Robertson R.N. - 09/10/2020 12:00 PM CST Patient attended a pre-op education class in preparation for left hip surgery on 09/11/[address] Apdoaca. Patient plans to dismiss to Home Self Care with the assistance of her family. Patient currently does own a pair of crutches and was instructed to wait to purchase equipment until after surgery.All of the patient's questions were answered. Total Hip Replacement Surgery-Direct Anterior Approach ([id number]) given. Rehabilitation After Total Hip Replacement ([id number]) Preventing Falls discussed. Pain Scale discussed. New NPO guideline provided. Total Joint Replacement Bradley Messages ([id number]) provided. Advance Directives ([id number]) provided. Anesthesia and Pain Management Options for Hip Surgery ([id number]) given. Important Information About Opioid Medications ([id number]) Electronically signed by: Chucho Robertson R.N. 09/10/20 1:22 PM INSURANCE ADJUSTER RANCE ADJUSTER documented in this encounter Plan of Treatment Upcoming Encounters Date Type Specialty Care Team Description 09/08/2022 Procedure visit Aesthetic Medicine and Juanita Vaz, Surgery REPAIRER CONTROLLER TESTER, C.N.P. [address] [place] [phone] (Charlotte bentley) 09/08/2022 Comprehensive Visit Aesthetic Medicine Lucero Mckeon, Surgery MJayda, Ph.D. [address] [place] [phone] (Charlotte bentley) documented as of this encounter Visit Diagnoses Diagnosis Primary Osteoarthritis Hip Left documented in this encounter Care Teams Graduate Intern Relationship Specialty Start Date End Date Elsewhere, Pcp PCP - General Internal Medicine 07/03/17 documented as of this encounter
--- OUTSIDE RECORDS SUMMARY | 2022-07-30 20:35 | XMS_ITS | Encounter Summary ---
:1945 Author Organization [facility] Address [address] [place] [address] Care Team Providers Name Role Phone Elsewhere, Pcp Primary Care Provider Unavailable Encounter Details Date Type Department Care Team Description 07/31/2020 Hospital Encounter Department of Radiology, [facility], Clary y C, Pain Hip Left [facility] in .[place], [place] [address] [facility] [address] [place] [phone] Social History Tobacco Use Types Packs/Day Years [...] completed or the highest Armando, MEd, MEDICAL SALES CONSULTANT, ALL) degree you have received? Sex [...] Aesthetic Medicine and Juanita Vaz, Surgery PRODUCTION CONTROL SPECIALIST, C.N.P. [address] [place] [address] (Wo rk) 09/08/2022 Comprehensive Visit Aesthetic Medicine and Lucero Pritchard, Surgery MJayda, Ph.D. [address] [place] [address] (Wo rk) documented as of this encounter [...] Left documented in this encounter Care Teams Evaluator Transfer Students Relationship Specialty Start Date End Date Elsewhere, Pcp PCP - General Internal Medicine 07/03/17 documented as of this encounter
--- OUTSIDE RECORDS SUMMARY | 2022-07-30 20:36 | XMS_ITS | Encounter Summary ---
:1945 Author Organization [facility] Address [address] [place] [address] Care Team Providers Name Role Phone Elsewhere, Pcp Primary Care Provider Unavailable Reason for Referral Outpatient (Routine) - Closed Specialty Diagnoses / Procedures Referred By Contact Refer red To Contact Vascular Medicine Juanita Vaz APRN, [facility] C.N.P. 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 [address] [place] [phone] Referral ID Status Reason Start Date Expiration Date Visits Requ ested Visits Authorized [id number] Closed 06/24/2020 06/24/2021 1 1 Encounter Details Date Type Department Care Team Description 06/24/2020 Orders Only Department of Vaz, Juanita R, Venous In sufficiency Chronic Peripheral; Vascular Medicine in GARMENT TURNER, C.N.P . Varicose Vein Lower Extremity With Pain Bilateral [place], [place] 200 [facility] [address] [place] [phone] Social History Tobacco Use Types Packs/Day Years [...] More than 4 times per year 01/28/2021 [employer]? Do you belong to any clubs [...] have completed or the highest Armando, MEd, TEXTILES SALES REPRESENTATIVE, ALL) degree you have received? Sex Assigned at Date Recorded Female 07/26/2020 9:06 PM CDT documented as of this encounter Plan of Treatment Upcoming Encounters Date Type Specialty Care Team Description 09/08/2022 Procedure visit Aesthetic Medicine and Juanita Vaz, Surgery GARMENT TURNER, C.N.P. 200 [place] [phone] (Charlotte bentley) 09/08/2022 Comprehensive Visit Aesthetic Medicine Lucero Mckeon, Surgery M.DAnali, Ph.D. 200 [place] [phone] (Charlotte bentley) Scheduled Referrals Name Type Priority Associated Diagnoses Order S [facility] Vascular Medicine Outpatient Referral Routine Exp ected: [...] Peripheral documented in this encounter Care Teams Food Truck Caterer Relationship Specialty Start Date End Date Elsewhere, Pcp PCP - General Internal Medicine 07/03/17 documented as of this encounter
--- OUTSIDE RECORDS SUMMARY | 2022-07-30 20:36 | XMS_ITS | Encounter Summary ---
:1945 Author Organization [facility] Address [address] [place] [address] Care Team Providers Name Role Phone Elsewhere, Pcp Primary Care Provider Unavailable Reason for Referral Outpatient (Routine) - Closed Specialty Diagnoses / Procedures Referred By Contact Refer red To Contact Endocrinology Diagnoses Osteoporosis Merrill Harris M.D. [place] [address] [place] [phone] Referral ID Status Reason Start Date Expiration Date Visits Requ ested Visits Authorized [id number] Closed 07/25/2019 07/24/2020 1 1 Scheduling Instructions Schedule 60 minute appointment. Encounter Details Date Type Department Care Team Description 07/25/2019 Orders Only Division of Merrill Harris, Emily s (Primary Dx); Endocrinology in M.D. Height Loss; [place], [place] 200 [address] [facility] [address] [place] [phone] Social History Tobacco Use Types Packs/Day Years [...] have completed or the highest Armando, MEd, PROCESSING MANAGER, ALL) degree you have received? Sex Assigned at Date Recorded Female 07/26/2020 9:06 PM CDT documented as of this encounter Plan of Treatment Upcoming Encounters Date Type Specialty Care Team Description 09/08/2022 Procedure visit Aesthetic Medicine and Juanita Vaz, Surgery BACKUP ADMINISTRATIVE COORDINATOR, C.N.P. [address] [place] [phone] (Wo rk) 09/08/2022 Comprehensive Visit Aesthetic Medicine Lucero Mckeon, Surgery M.D., Ph.D. [address] [place] [phone] (Wo rk) Scheduled Referrals Name Type Priority Associated Diagnoses [facility] Outpatient Routine Osteoporosis Expecte d: visit (clinic) Referral 07/25/2019 (Approximate), Expires: 07/25/2022 documented as of this encounter Results (ABNORMAL) CBC without Differential (05/16/2020 2:14 PM CDT) [facility] Time Signature Hemoglobin 14.8 11.6 - 05/16/2020 [...] M.D. LAB BLOOD ADD-ON Performing Organization Address City/State/[facility] Code Phon e Number [facility] - [address] [place] [address] [facility] [place] [address] Laboratories-[facility] 200 [facility] Electrophoresis, Protein (05/16/2020 2:14 PM CDT) [facility] gist Method Time Signature Total Protein, 6.6 [...] M.D. LAB BLOOD ADD-ON Performing Organization Address City/[facility]/ZIP Code Phon e Number [facility] [address] [place] [address] 05 SU[facility]ENTER [facility] [place] [address] Laboratory Medicine and Pathology [address] [place] [address] Dr. PETERSON 25-Hydroxyvitamin D2 and D3 (05/16/2020 [...] performa nce characteristics determined by [facility] in a manner consistent with CLIA requirements. This test has not been cleared or approved by the [place] d and Drug Administration. Specimen Anatomical Collection Method Collection Time Receive d Time (Source) Location / / Volume Laterality Blood (Blood, 05/16/2020 2:14 PM 05/17/20 20 7:56 Venous) CDT AM CDT Merrill Harris M.D. LAB BLOOD ADD-ON Performing Organization Address City/[facility] Code Phon e Number [facility] [address] [place] [address] 05 SU[facility]ENTER [facility] [place] [address] Laboratory Medicine and Pathology [address] [place] [address] Dr. PETERSON Creatinine with Estimated GFR (05/16/2020 2:14 PM CDT) athologist Signature Creatinine 0.77 0.59 - 05/16/2020 DTL 1.04 mg/dL 3:33 PM CDT eGFR-Non 77 >=60 05/16/2020 DTL Black/ mL/min/BSA 3:33 PM CDT [place] Comment: ----ADDITIONAL INFORMATION---- Estimated GFR calculated using [...] M.D. LAB BLOOD ADD-ON Performing Organization Address City/[facility]/ZIP [facility] Phon e Number [facility] - [address] Phosphorus Inorganic (05/16/2020 2:14 PM CDT) P athologist Signature Phosphorus 4.0 2.5 - 4.5 05/16/2020 DTL (Inorganic), S mg/dL 3:33 PM CDT Specimen Anatomical Collection Method Collection Time Receive d Time (Source) Location / / Volume Laterality Blood (Blood, 05/16/2020 2:14 PM 05/16/20 3:08 Venous) CDT PM CDT Merrill Harris M.D. LAB BLOOD ADD-ON Performing Organization Address City/[facility]/ZIP Code Phon e Number [facility] - 200 [place], [place] [address] 05 [place] [address] Calcium, Total (05/16/2020 2:14 PM CDT) P athologist Signature Calcium, Total, 9.7 8.8 - 10.2 05/16/2020 DTL S mg/dL 3:33 PM CDT Specimen Anatomical Collection Method Collection Time Receive d Time (Source) Location / / Volume Laterality Blood (Blood, 05/16/2020 2:14 PM 05/16/20 3:08 Venous) CDT PM CDT Merrill Harris M.D. LAB BLOOD ADD-ON Performing Organization Address City/[facility]/ZIP Code Phon e Number [facility] - 200 [place], [place] [address] [place] [address] Laboratories-[address] Parathyroid Hormone (PTH) (05/16/2020 2:14 PM [...] Address City/State/ZIP Code Phon e Number [facility] - 200 [place], [place] [address] [place] [address] DX Lumbar Spine 2-3 Views (05/16/2020 [...] Loss documented in this encounter Care Teams Intellectual Property Legal Assistant Relationship Specialty Start Date End Date Elsewhere, Pcp PCP - General Internal Medicine 07/03/17 documented as of this encounter
--- OUTSIDE RECORDS SUMMARY | 2022-07-30 20:36 | XMS_ITS | Encounter Summary ---
:1945 Author Organization [facility] Address [address] [place] [address] Care Team Providers Name Role Phone Elsewhere, Pcp Primary Care Provider Unavailable Reason for Visit Outpatient (Routine) - Closed Specialty Diagnoses / Procedures Referred By Contact Refer red To Contact Endocrinology Diagnoses Osteoporosis Merrill Harris M.D. [place] [address] [place] [phone] Referral ID Status Reason Start Date Expiration Date Visits Requ ested Visits Authorized [id number] Closed 07/25/2019 07/24/2020 1 1 Encounter Details Date Type Department Care Team Description 05/16/2020 Office Visit Division of Merrill Harris Leukocytosis ( Primary Dx); Endocrinology javier Perera M.D. Osteoporosis; [place], [place] [address] [facility] Osteoarthritis [address] [place] [phone] Social History Tobacco Use Types Packs/Day Years [...] have completed or the highest Armando, MEd, SHOWPLACE MANAGER, ALL) degree you have received? Sex [...] had a bone density study at the [facility] in [place] on 11/23/2019. According to the bone density report, Ms. Sheikh had a 58.5% decrease in the density of her left hip between 04/13/2018 and 11/23/2019 compared to a 9.5% decrease during the preceding 10 years. In contrast, the rate of bone loss at the 33% radius was constant [id number] and 2019. It was also reported that [...] (SOTRADECOL) 2 mL intravenous Once Juanita Vaz, FIRE CAPTAIN MARINE, C.N.P. Allergies Allergen Reactions ??? Codeine GI [...] status post right total hip arthroplasty Ms. Sheihk plans to have a left total hip arthroplasty in the near future. The timing of the surgery will impact the treatment plan for her osteoporosis. Merrill Harris M.D. CT CT Job ID: [id number] documented in this encounter Plan of Treatment Upcoming Encounters Date Type Specialty Care Team Description 09/08/2022 Procedure visit Aesthetic Medicine and Juanita Vza, Surgery FIRE CAPTAIN MARINE, C.N.P. [address] [place] [phone] ([place] bentley) 09/08/2022 Comprehensive Visit Aesthetic Medicine and Lucero Pritchard Surgery M.D., Ph.D. [address] [place] [phone] ([place] bentley) documented as of this encounter Results (ABNORMAL) Morphology Evaluation (Special Smear) (05/16/2020 4:14 PM CDT) [facility] Method Time Signature Neutrophilic Segs 90 (H) 50 - 75 % 05/16/2020 [facility] 5:54 PM CDT Lymphocytes 5 (L) 18 - 42 % 05/16/2020 [facility] 5:54 PM CDT Monocytes 5 2 - 11 % 05/16/2020 [facility] 5:54 PM CDT Interpretation SeeComment 05/16/2020 [facility] 5:54 PM CDT Comment: Peripheral blood smear reviewed ; no diagnostic abnormalities are seen. Reviewed by: Tech 05/16/2020 5:54 PM CDT [facility] Specimen Anatomical Collection Method Collection Time Receive d Time (Source) Location / / Volume Laterality Blood (Blood, 05/16/2020 4:14 PM 05/16/20 20 4:49 Venous) CDT PM CDT Merrill Harris M.D. LAB BLOOD ADD-ON Performing Organization Address City/State/ZIP Code Phon e Number [facility] - [address] [place], [place] [address] [place] [address] Laboratories-[facility] [address] documented in this encounter Visit Diagnoses Diagnosis Leukocytosis - Primary Osteoporosis Osteoarthritis documented in this encounter Care Teams Shop Mechanic Relationship Specialty Start Date End Date Elsewhere, Pcp PCP - General Internal Medicine 07/03/17 documented as of this encounter
--- OUTSIDE RECORDS SUMMARY | 2022-07-30 20:36 | XMS_ITS | Encounter Summary ---
:1945 Author Organization [facility] Address [address] [place] [address] Care Team Providers Name Role Phone Elsewhere, Pcp Primary Care Provider Unavailable Encounter Details Date Type Department Care Team Description 12/06/2019 Orders Only Division of Steven, Emily [place] (Primary Dx); Endocrinology in M.D. Medication Therapy Retirement Not Anticoa gulant; [place], [place] [address] [facility] Hypertension Essential Primary [address] [place] [phone] Social History Tobacco Use Types Packs/Day Years [...] have completed or the highest Armando, Cora, STAFFING ADMINISTRATOR, ALL) degree you have received? Sex Assigned at Date Recorded Female 07/26/2020 9:06 PM CDT documented as of this encounter Plan of Treatment Upcoming Encounters Date Type Specialty Care Team Description 09/08/2022 Procedure visit Aesthetic Medicine and Juanita Vaz, Surgery CLINICAL REHABILITATION SPECIALIST, C.N.P. [address] [place] [phone] (Wo rk) 09/08/2022 Comprehensive Visit Aesthetic Medicine and Lucero Pritchard, Surgery Francesca, Ph.D. [address] [place] [phone] (Wo rk) documented as of this encounter [...] City/State/ZIP Code Phon e Number [facility] - 200 [place], [place] [address] [facility] [place] [address] Laboratories-[facility] 200 [facility] (ABNORMAL) Glucose, Fasting (05/16/2020 2:14 PM CDT) [...] City/State/ZIP Code Phon e Number [facility] - [address] [place], [place] [address] [facility] [place] [address] Laboratories-[facility] [address] Bone Alkaline Phosphatase (05/16/2020 2:14 PM CDT) athologist Signature Bone Alkaline 14 mcg/L 05/16/2020 [facility] Phosphatase, S 6:59 PM CDT Comment: ----REFERENCE VALUE---- <=14 (Premenopausal) <=22 (Postmenopausal) Specimen Anatomical Collection Method Collection Time Receive d Time (Source) Location / / Volume Laterality Blood (Blood, 05/16/2020 2:14 PM 05/16/20 20 6:11 Venous) CDT PM CDT Merrill Harris M.D. LAB BLOOD ADD-ON Performing Organization Address City/[facility]/ZIP Code Phon e Number [facility] [address] [place] [address] 05 SUPPORT CENTER [facility] [place] [address] Laboratory Medicine and Pathology [address] [place] [address] Dr. PETERSON Beta-CrossLaps (Beta-CTx) (05/16/2020 2:14 PM CDT) athologist Signature Beta-CrossLaps 502 pg/mL 05/16/2020 [facility] (B-CTx), S 6:48 PM CDT Comment: ----REFERENCE VALUE---- 25-573 (Premenopausal) 104-1008 (Postmenopausal) Specimen Anatomical Collection Method Collection Time Receive d Time (Source) Location / / Volume Laterality Blood (Blood, 05/16/2020 2:14 PM 05/16/20 20 6:11 Venous) CDT PM CDT Merrill Harris M.D. LAB BLOOD NON ADD-ON Performing Organization Address City/[facility]/ZIP Code Phon e Number [facility] [address] [place] [address] SUPPORT CENTER [facility] [place] [address] Laboratory Medicine and Pathology [facility] [address]. PETERSON AST (Aspartate Aminotransferase) [...] City/State/ZIP Code Phon e Number [facility] - [address] [place], [place] [address] [facility] [place] [address] Laboratories-[facility] [address] documented in this encounter Visit Diagnoses Diagnosis Osteoporosis - Primary Medication Therapy Retirement Not Anticoa gulant Hypertension Essential Primary documented in this encounter Care Teams Research Clerk Relationship Specialty Start Date End Date Elsewhere, Pcp PCP - General Internal Medicine 07/03/17 documented as of this encounter
--- OUTSIDE RECORDS SUMMARY | 2022-07-30 20:36 | XMS_ITS | Encounter Summary ---
:1945 Author Organization [facility] Address [address] [place] [address] Care Team Providers Name Role Phone Elsewhere, Pcp Primary Care Provider Unavailable Encounter Details Date Type Department Care Team Description 05/16/2020 Hospital Encounter Department of Merrill Harris Oste oporosis; Radiology, [facility] in [address] [place] [address] [place] [phone] [place], [place] [phone] (Work) [phone] Social History Tobacco Use Types Packs/Day Years [...] have completed or the highest Armando, MEd, DOG OR ANIMAL SITTER, ALL) degree you have received? Sex Assigned [...] visit Aesthetic Medicine and Juanita Vaz, Surgery FISHERY BIOLOGIST, C.N.P. [address] [place] [phone] ([place] bentley) 09/08/2022 Comprehensive Visit Aesthetic Medicine Lucero Mckeon, Surgery M.Norma, Ph.D. [address] [place] [phone] ([place] bentley) documented as of this encounter [...] Loss documented in this encounter Care Teams Cat Driver Relationship Specialty Start Date End Date Elsewhere, Pcp PCP - General Internal Medicine 07/03/17 documented as of this encounter
--- OUTSIDE RECORDS SUMMARY | 2022-07-30 20:36 | XMS_ITS | Encounter Summary ---
:1945 Author Organization [facility] Address [address] [place] [address] Care Team Providers Name Role Phone Elsewhere, Pcp Primary Care Provider Unavailable Encounter Details Date Type Department Care Team Description 09/11/2019 Procedure visit Department of Juanita Vaz Varicose Vein Lower Vascular Medicine in R, UTILIZATION COORDINATOR, C. N.P. Extremity With Pain [place], [place] [address] [facility] Bilateral [address] [place] [phone] Social History Tobacco Use Types Packs/Day Years [...] have completed or the highest Armando, MEd, DRAGLINE ENGINEER, ALL) degree you have received? Sex [...] obtained after consent using [facility] approvedand secure device and loaded to [...] varicosities Number of injections: Approximately 50-75 injections [place] used: 30 gauge Complications: No apparent complications [...] all questions were answered to apparent satisfaction. SR documented in this encounter Plan of Treatment Upcoming Encounters Date Type Specialty Care Team Description 09/08/2022 Procedure visit Aesthetic Medicine and Juanita Vaz, Surgery CLAUDIA, C.N.P. [address] [place] [phone] ([place] bentley) 09/08/2022 Comprehensive Visit Aesthetic Medicine Lucero Mckeon, Surgery MJayda, Ph.D. [address] [place] [phone] ([place] bentley) documented as of this encounter Procedures Procedure Name Priority Date/Time Associated Diagnosis Comme nts SCLEROTHERAPY Routine 09/11/2019 1:00 PM Varicose Vein Lower R esults for this MDM SR Extremity With Pain procedur e are in the Bilateral results section . documented in this encounter Results Sclerotherapy (09/11/2019 1:00 PM MDM SR) Narrative MMODAL - 09/11/2019 1:00 PM MDM SR Juanita Vaz APRN, C.N.P. ? 09/11/2019 ??6:19 [...] using [facility] approved and s Momail device and loaded to patient's medical record. [...] Number of injections: ??Approximately 50 -75 injections [place] used: 30 gauge Complications: ??No apparent complicatio [...] (20 mg/2 mL) Given 09/11/2019 1:05 PM MDM SR 2 mL injection 2 mL (ASCLERA) 2 mL, intravenous, Once, On 09/11/19 at 1315, For 1 dose, 2mL was drawn up and diluted into 20mL of 0.9% saline. documented in this encounter Care Teams Heel Reducer Relationship Specialty Start Date End Date Elsewhere, Pcp PCP - General Internal Medicine 07/03/17 documented as of this encounter
--- OUTSIDE RECORDS SUMMARY | 2022-07-30 20:36 | XMS_ITS | Encounter Summary ---
:1945 Author Organization [facility] Address [address] [place] [address] Care Team Providers Name Role Phone Elsewhere, Pcp Primary Care Provider Unavailable Encounter Details Date Type Department Care Team Description 05/24/2020 Clinical Communication Division of Merrill Harris Endocrinology in M.. [place], [place] [address] [facility] [address] [place] [phone] Social History Tobacco Use Types Packs/Day Years [...] level of school Master's degree (e.g., Jody Alomnte, [place], 03/30/2019 you have completed or the highest Armando, MEd, TECHNICAL DOCUMENT WRITER, ALL) degree you have received? Sex Assigned at Date Recorded Female 07/26/2020 9:06 PM CDT documented as of this encounter Miscellaneous Notes Telephone Encounter - Merrill Harris M.D. - 05/24/2020 1:57 PM CDT Thanks for the update. Telephone Encounter - Kailee Gonzalez - 05/24/2020 1:42 PM CDT She called again, and now says she had a mammo here at [facility] 06/08/2019 and then had one 09/06/2019 at [facility]. She said she is sending those records to you. Telephone Encounter - Merrill Harris M.D. - 05/24/2020 12:57 PM CDT Thanks for the note. Telephone Encounter - Kailee Gonzalez - 05/24/2020 12:[address] Harris- Patient wanted me to let you know her last mammo was 09/06/2019, she she wishes to wait on the mammo until this September. Thank you Juanis [phone] documented in this encounter Plan of Treatment Upcoming Encounters Date Type Specialty Care Team Description 09/08/2022 Procedure visit Aesthetic Medicine and Juanita Vaz, Surgery APPLICATION PROGRAMMER ANALYST, C.N.P. [address] [place] [phone] (Wo rk) 09/08/2022 Comprehensive Visit Aesthetic Medicine Lucero Mckeon, Surgery Francesca, Ph.D. [address] [place] [phone] (Wo rk) documented as of this encounter Visit Diagnoses Not on filedocumented in this encounter Care Teams Chainstitch Hemmer Relationship Specialty Start Date End Date Elsewhere, Pcp PCP - General Internal Medicine 07/03/17 documented as of this encounter
--- OUTSIDE RECORDS SUMMARY | 2022-07-30 20:36 | XMS_ITS | Encounter Summary ---
:1945 Author Organization [facility] Address [address] [place] [address] Care Team Providers Name Role Phone Elsewhere, Pcp Primary Care Provider Unavailable Reason for Visit Reason Comments Patient call/request Encounter Details Date Type Department Care Team Description 06/21/2020 Clinical Communication Department of Juanita Vaz Vascular Medicine R, FILM READER, call/reque st in [facility] [address] [facility] [address] [place] [phone] Social History Tobacco Use Types Packs/Day Years [...] have completed or the highest Armando, MEd, TOOL LIAISON, ALL) degree you have received? Sex Assigned [...] Aesthetic Medicine and Juanita Vaz, Surgery FILM READER, C.N.P. [address] [place] [phone] ([place] eb[place]ley) 09/08/2022 Comprehensive Visit Aesthetic Medicine Lucero Mckeon, Surgery M.D., Ph.D. [address] [place] [phone] ([place] bentley) documented as of this encounter Visit Diagnoses Not on filedocumented in this encounter Care Teams Pre Planning Advisor Relationship Specialty Start Date End Date Elsewhere, Pcp PCP - General Internal Medicine 07/03/17 documented as of this encounter
--- OUTSIDE RECORDS SUMMARY | 2022-07-30 20:36 | XMS_ITS | Encounter Summary ---
:1945 Author Organization [facility] Address [address] [place] [address] Care Team Providers Name Role Phone Elsewhere, Pcp Primary Care Provider Unavailable Encounter Details Date Type Department Care Team Description 07/31/2019 Diagnostic Department of [place], Tinnitus Bilat eral (Primary Dx); Otorhinolaryngology in Екатерина L, Loss Hearing Sensorineural Bilateral [place], [place] Steven, C.C.C.-A [address] [facility] [address] [place] [address] [facility] [phone] [place] [address] Social History Tobacco Use Types [...] completed or the highest Armando, MEd, TECHNICAL EXPERT, ALL) degree you have received? Sex Assigned at Date Recorded Female 07/26/2020 9:06 PM CDT documented as of this encounter Progress Notes Екатерина Echeverria Au.D., C.CAnaliCAnali-Gage - 07/31/2019 11:00 AM CDT SUBJECTIVE REFERRAL: [...] amplification on??04/27/2019. Hearing Aid Information Left Right Placement Assistant [employer] Model Linx 3D 577 Linx 3D 577 Style BTE (gihksq-phg-gqf) BTE (ybahts-hxm-jul) Serial Number [id number] Battery Size 13 13 ? Coupling Custom earmold, REGIONAL HR MANAGER#5 Custom earmold, REGIONAL HR MANAGER#5 ? Warranty Date 05/12/2022 05/12/2022 Trial [...] due to option for remake with the union steward. Today she reports she plans to continue [...] Aesthetic Medicine and Juanita Vaz, Surgery ASSISTANT BOOKKEEPER, C.N.P. [address] [place] [phone] (Wo rk) 09/08/2022 Comprehensive Visit Aesthetic Medicine Lucero Mckeon, Surgery M.Norma, Ph.D. [address] [place] [phone] (Wo rk) documented as of this encounter Visit Diagnoses Diagnosis Tinnitus Bilateral - Primary Loss Hearing Sensorineural Bilateral documented in this encounter Care Teams Shovel Logger Relationship Specialty Start Date End Date Elsewhere, Pcp PCP - General Internal Medicine 07/03/17 documented as of this encounter
--- OUTSIDE RECORDS SUMMARY | 2022-07-30 20:36 | XMS_ITS | Encounter Summary ---
:1945 Author Organization [facility] Address [address] [place] [address] Care Team Providers Name Role Phone Elsewhere, Pcp Primary Care Provider Unavailable Encounter Details Date Type Department Care Team Description 05/17/2020 Clinical Communication Division of Merrill Harris Endocrinology in M.. [place], [place] [address] [facility] [address] [place] [phone] Social History Tobacco Use Types Packs/Day Years [...] have completed or the highest Armando, MEd, RESIDENTIAL ENERGY AUDITOR, ALL) degree you have received? Sex Assigned [...] any Contact patient by: phone Phone number: [phone] Thank you, Oliver PLEASE REPLY TO THE SECRETARIAL POOL WHEN REPLYING TO THIS MESSAGE--p RST END ANG ORTIZ. Thank you! documented in this encounter Plan of Treatment Upcoming Encounters Date Type Specialty Care Team Description 09/08/2022 Procedure visit Aesthetic Medicine and Juanita Vaz, Surgery SALES REPRESENTATIVE EDUCATION COURSES, C.N.P. [address] [place] [phone] (Charlotte bentley) 09/08/2022 Comprehensive Visit Aesthetic Medicine Lucero Mckeon, Surgery M.Norma, Ph.D. [address] [place] [phone] (Charlotte bentley) documented as of this encounter Visit Diagnoses Not on filedocumented in this encounter Care Teams Case Mgr Relationship Specialty Start Date End Date Elsewhere, Pcp PCP - General Internal Medicine 07/03/17 documented as of this encounter
--- OUTSIDE RECORDS SUMMARY | 2022-07-30 20:36 | XMS_ITS | Encounter Summary ---
:1945 Author Organization [facility] Address [address] [place] [address] Care Team Providers Name Role Phone Elsewhere, Pcp Primary Care Provider Unavailable Encounter Details Date Type Department Care Team Description 05/16/2020 Hospital Encounter Department of Steven, Merrill cuenca; Laboratory Medicine D, Francesca Fatigue ; and Pathology, [address] [place] [address] Medication Therapy Mcc Not Anticoa gulant; [facility], in [place], [place] Hyperte nsion Essential Primary [facility] [address] [place] [phone] 200 [facility] (Work) [place], [place] [phone] (Fax) [phone] Social History Tobacco Use Types Packs/Day Years [...] completed or the highest Armando, MEd, DIRECTOR PHARMACOLOGY, ALL) degree you have received? Sex Assigned [...] visit Aesthetic Medicine and Juanita Vaz, Surgery DIESEL ROLLER OPERATOR, C.N.P. [address] [place] [phone] (Wo rk) 09/08/2022 Comprehensive Visit Aesthetic Medicine and Lucero Pritchard, Surgery M.D., Ph.D. [address] [place] [phone] (Wo rk) documented as of this encounter Procedures Procedure Name Priority Date/Time Associated Comments Diagnosis BETA-CROSSLAPS Routine 05/16/2020 2:14 Osteoporosis Results for this (BETA-CTX), S PM CDT Medication Therapy procedur e are in Paper Cone Machine Operator Not the results Anticoagulant section. Hypertension Essential Primary BONE ALKALINE Routine 05/16/2020 2:14 Osteoporosis Results for this PHOSPHATASE, S PM CDT Medication Therapy procedu re are in Paper Cone Machine Operator Not the results Anticoagulant section. Hypertension Essential [...] Medication Therap y procedure are in S/P Paper Cone Machine Operator Not the results Anticoagulant section. Hypertension Essential Primary THYROID-STIMULATING Routine 05/16/2020 2:14 Osteoporosis Results for this HORMONE-SENSITIVE PM CDT Medication Therapy proc edure are in (S-TSH) Paper Cone Machine Operator Not the results Anticoagulant section. Hypertension Essential [...] PM CDT Medication Therapy procedure are in Mcc Not the results Anticoagulant section. Hypertension Essential Primary CREATININE WITH EGFR, Routine 05/16/2020 2:14 Osteoporosis Res ults for this S/P PM CDT procedure are i n the results section. CALCIUM, TOT, S/P Routine 05/16/2020 2:14 Osteoporosis Results for this PM CDT procedure are i n the results section. documented in this encounter Results S-TSH (Thyroid-Stimulating Hormone - Sensitive) (05/16/2020 2:14 PM CDT) athologist [facility] TSH, Sensitive 0.4 0.3 - 4.2 05/16/2020 DTL mIU/L 3:33 PM CDT Specimen Anatomical Collection Method Collection Time Receive d Time (Source) Location / / Volume Laterality Blood (Blood, 05/16/2020 2:14 PM 05/16/20 20 3:08 Venous) CDT PM CDT Merrill Harris M.D. LAB BLOOD ADD-ON Performing Organization Address City/[facility] Phon e Number [facility] - [address] (ABNORMAL) Glucose, Fasting (05/16/2020 2:14 PM CDT) athologist [facility] Glucose, P 106 (H) 70 - 100 05/16/2020 DTL mg/dL 3:25 PM CDT Last Intake 5 hr 05/16/2020 DTL 3:09 PM CDT Specimen Anatomical Collection Method Collection Time Receive d Time (Source) Location / / Volume Laterality Blood (Blood, 05/16/2020 2:14 PM 05/16/20 20 3:09 Venous) CDT PM CDT Merrill Harris M.D. LAB BLOOD NON ADD-ON Performing Organization Address City/[facility] Phon e Number [facility] - [address] Bone Alkaline Phosphatase (05/16/2020 2:14 PM CDT) athologist Signature Bone Alkaline 14 mcg/L 05/16/2020 [facility] Phosphatase, S 6:59 PM CDT Comment: ----REFERENCE VALUE---- <=14 (Premenopausal) <=22 (Postmenopausal) Specimen Anatomical Collection Method Collection Time Receive d Time (Source) Location / / Volume Laterality Blood (Blood, 05/16/2020 2:14 PM 05/16/20 20 6:11 Venous) CDT PM CDT Merrill Harris M.D. LAB BLOOD ADD-ON Performing Organization Address City/[facility] Code Phon e Number [facility] [address] [place] [phone] [address] [facility] [facility] [place] [address] Laboratory Medicine and Pathology [address] [place] [address] Dr. PETERSON Beta-CrossLaps (Beta-CTx) (05/16/2020 2:14 PM CDT) athologist Signature Beta-CrossLaps 502 pg/mL 05/16/2020 [facility] (B-CTx), S 6:48 PM CDT Comment: ----REFERENCE VALUE---- 25-573 (Premenopausal) 104-1008 (Postmenopausal) Specimen Anatomical Collection Method Collection Time Receive d Time (Source) Location / / Volume Laterality Blood (Blood, 05/16/2020 2:14 PM 05/16/20 20 6:11 Venous) CDT PM CDT Merrill Harris M.D. LAB BLOOD NON ADD-ON Performing Organization Address City/[facility] Phon e Number [facility] [address] [place], [place] [address] [facility] [place] [address] Laboratory Medicine and Pathology [address] [place] [address] Dr. PET[place] AST (Aspartate Aminotransferase) (05/16/2020 2:14 [...] Organization Address City/State/ZIP Code Phon e Number [facility] - 200 [place], [place] [address] [place] [address] (ABNORMAL) CBC without Differential (05/16/2020 2:14 PM CDT) [facility] Method Time Signature Hemoglobin 14.8 11.6 [...] Organization Address City/State/ZIP Code Phon e Number [facility] - [address] Electrophoresis, Protein (05/16/2020 2:14 PM CDT) [facility] Lemon[employer]. Method Time Signature Total Protein, 6.6 6.3 [...] Organization Address City/State/ZIP Code Phon e Number [facility] [address] [place], [place] [address] [place] [address] CENTER [facility] [place] [address] Laboratory Medicine and Pathology [address] [...] performa nce characteristics determined by [facility] in a manner consistent with CLIA requirements. [...] Organization Address City/State/ZIP Code Phon e Number [facility] [address] [place], [place] [address] [address] [facility] [place] [address] Laboratory Medicine and Pathology [address] [place] Creatinine with Estimated GFR (05/16/2020 2:14 PM CDT) athologist Signature Creatinine 0.77 0.59 - 05/16/2020 DTL 1.04 mg/dL 3:33 PM CDT eGFR-Non 77 >=60 05/16/2020 DTL Black/ mL/min/BSA 3:33 PM CDT Solomon Islander Comment: ----ADDITIONAL INFORMATION---- Estimated GFR calculated using [...] M.D. LAB BLOOD ADD-ON Performing Organization Address City/[facility]/ZIP Code Phon e Number [facility] - [address] [place], [place] [address] [facility] [place] [place] [address] [facility] [address] Phosphorus Inorganic (05/16/2020 2:14 [...] Organization Address City/State/ZIP Code Phon e Number [facility] - [address] [place], [place] [address] [facility] [place] [place] [address] [facility] [address] Calcium, Total (05/16/2020 2:14 PM CDT) athologist Signature Calcium, Total, 9.7 8.8 - 10.2 05/16/2020 DTL S mg/dL 3:33 PM CDT Specimen Anatomical Collection Method Collection Time Receive d Time (Source) Location / / Volume Laterality Blood (Blood, 05/16/2020 2:14 PM 05/16/20 20 3:08 Venous) CDT PM CDT Merrill Harris M.D. LAB BLOOD ADD-ON Performing Organization Address City/[facility] Phon e Number [facility] - [address] [address] [facility] [address] Parathyroid Hormone [...] M.D. LAB BLOOD ADD-ON Performing Organization Address City/[facility] Phon e Number [facility] - [id number] [place] [address] [facility] documented in this encounter Visit Diagnoses Diagnosis Osteoporosis Fatigue Medication Therapy Paper Cone Machine Operator Not Anticoa gulant Hypertension Essential Primary documented in this encounter Care Teams Controls Technician Relationship Specialty Start Date End Date Elsewhere, Pcp PCP - General Internal Medicine 07/03/17 documented as of this encounter
--- OUTSIDE RECORDS SUMMARY | 2022-07-30 20:36 | XMS_ITS | Encounter Summary ---
:1945 Author Organization [facility] Address [address] [place] [address] Care Team Providers Name Role Phone Elsewhere, Pcp Primary Care Provider Unavailable Reason for Visit Reason Comments COVID Inquiry Encounter Details Date Type Department Care Team Description 05/15/2020 Clinical Communication Division of Merrill Harris Inquiry Endocrinology in D, [place]. [place], [place] [address] [place] [address] [address] [place] [phone] Social History Tobacco Use Types Packs/Day Years [...] have completed or the highest Armando, MEd, CHEFS, ALL) degree you have received? Sex Assigned at Date Recorded Female 07/26/2020 9:06 PM CDT documented as of this encounter Miscellaneous Notes Telephone Encounter - Margot Ty - 05/15/2020 9:50 AM CDT ([facility] and [facility] locations only: If the patient is not having symptoms and is requesting COVID-19 Nasal Swab testing only, use the process listed in the COVID-19 Patient Requesting COVID PCR Test OTG COVID-19 [place] Patient Requesting COVID PCR Test). 1. Do [...] visit Aesthetic Medicine and Juanita Vaz, Surgery FRONT DESK MONITOR, C.N.P. [address] [place] [phone] (Charlotte bentley) 09/08/2022 Comprehensive Visit Aesthetic Medicine and Lucero Pritchard, Surgery M.DAnali, Ph.D. 200 [place] [phone] (Charlotte bentley) documented as of this encounter Visit Diagnoses Not on filedocumented in this encounter Care Teams Combiner Relationship Specialty Start Date End Date Elsewhere, Pcp PCP - General Internal Medicine 07/03/17 documented as of this encounter
--- OUTSIDE RECORDS SUMMARY | 2022-07-30 20:36 | XMS_ITS | Encounter Summary ---
:1945 Author Organization [facility] Address [address] [place] [address] Care Team Providers Name Role Phone Elsewhere, Pcp Primary Care Provider Unavailable Reason for Visit Reason Comments Medication Question colonoscopy Encounter Details Date Type Department Care Team Description 06/17/2020 Clinical Division of Merrill Harris Medication Communication Endocrinology in [place]. Question [place], [place] [address] [facility] (colonoscopy) [address] [place] [phone] Social History Tobacco Use Types Packs/Day Years [...] have completed or the highest Armando, MEd, SYSTEM PROGRAMMER, ALL) degree you have received? Sex Assigned [...] 07/01 colonoscopy be sent toa pharmacy in [place], [place]. This pharmacy has been added to her preferred pharmacies list. [facility] Best time to be reached: No call back needed. Ms. Sheikh just asked that the prep medicine be at the pharmacy at least a week ahead of her 07/01 procedure so she can pick it up. Contact patient by: n/a Phone number: n/a Thank you, Lisa Houston, Catering Director [phone] PLEASE REPLY TO THE SECRETARIAL POOL WHEN REPLYING TO THIS MESSAGE--p RST END ANG MED AA. Thank you! documented in this encounter Plan of Treatment Upcoming Encounters Date Type Specialty Care Team Description 09/08/2022 Procedure visit Aesthetic Medicine and Juanita Vaz, Surgery WEB DEVELOPMENT INTERN, C.N.P. [address] [place] [address] (Wo rk) 09/08/2022 Comprehensive Visit Aesthetic Medicine Lucero Mckeona P, Surgery Francesca, Ph.D. [address] [place] [phone] (Wo rk) documented as of this encounter Visit Diagnoses Not on filedocumented in this encounter Care Teams Construction Trench Digger Relationship Specialty Start Date End Date Elsewhere, Pcp PCP - General Internal Medicine 07/03/17 documented as of this encounter
--- OUTSIDE RECORDS SUMMARY | 2022-07-30 20:36 | XMS_ITS | Encounter Summary ---
:1945 Author Organization [facility] Address [address] [place] [address] Care Team Providers Name Role Phone Elsewhere, Pcp Primary Care Provider Unavailable Encounter Details Date Type Department Care Team Description 11/07/2019 Procedure visit Department of Juanita Vaz Varicose Vein Lower Vascular Medicine in R, RN VISITING, C. N.P. Extremity With Pain [place], [place] [address] [facility] Bilateral [address] [place] [address] [phone] Social History Tobacco Use Types Packs/Day Years [...] have completed or the highest Armando, MEd, INTERLIBRARY LOAN SPECIALIST, ALL) degree you have received? Sex Assigned at Date Recorded Female 07/26/2020 9:06 PM CDT documented as of this encounter Last Filed Vital Signs Vital Sign Reading Time Taken Comments Blood Pressure 122/77 11/07/2019 3:00 PM [employer] Pulse 78 11/07/2019 3:00 PM [employer] Temperature - - Respiratory Rate - - Oxygen Saturation - - Inhaled Oxygen Concentration - - Weight 65.6 kg (144 lb 10 oz) 11/07/2019 3:00 PM [employer] Height 166.9 cm (5' 5.71) 11/07/2019 3:00 PM [employer] Body Mass Index 23.55 11/07/2019 3:00 PM [employer] documented in this encounter Procedure Notes Juanita [...] of legs were obtained after consent using [facility] approvedand secure device and loaded to [...] cc Number of injections: Approximately 50-75 injections [place] used: 30 gauge Complications: No apparent complications [...] all questions were answered to apparent satisfaction. HELICOPTER PILOT documented in this encounter Plan of Treatment Upcoming Encounters Date Type Specialty Care Team Description 09/08/2022 Procedure visit Aesthetic Medicine and Juanita Vaz, Surgery CLAUDIA, C.N.P. [address] [place] [phone] (Charlotte bentley) 09/08/2022 Comprehensive Visit Aesthetic Medicine and Lucero Pritchard, Surgery MJayda, Ph.D. [address] [place] [phone] (Charlotte bentley) documented as of this encounter Procedures Procedure Name Priority Date/Time Associated Diagnosis Comme nts SCLEROTHERAPY Routine 11/07/2019 3:00 PM Varicose Vein Lower R esults for this [employer] Extremity With Pain procedur e are in the Bilateral results section . documented in this encounter Results Sclerotherapy (11/07/2019 3:00 PM [employer] HEL[employer]) Narrative MMODAL - 11/07/2019 3:00 PM [employer] Juanita Vaz APRN, C.N.P. ? 11/07/2019 ??4:52 [...] of legs were obtained after consent using [facility] approved and s [place] device and loaded to patient's medical record. [...] Number of injections: ??Approximately 50 -75 injections [place] used: 30 gauge Complications: ??No apparent complicatio [...] (20 mg/2 mL) Given 11/07/2019 3:19 PM [employer] HEL[employer] 2 mL injection 2 mL (ASCLERA) 2 mL, intravenous, Once, On Wed11/07/19 at 1530, For 1 dose, Dilute 20 mg in 20 cc's of saline and administer to effect documented in this encounter Care Teams Radio Dispatcher Relationship Specialty Start Date End Date Elsewhere, Pcp PCP - General Internal Medicine 07/03/17 documented as of this encounter
--- OUTSIDE RECORDS SUMMARY | 2022-07-30 20:36 | XMS_ITS | Encounter Summary ---
:1945 Author Organization [facility] Address [address] [place] [address] Care Team Providers Name Role Phone Elsewhere, Pcp Primary Care Provider Unavailable Reason for Referral Outpatient (Routine) - Closed Specialty Diagnoses / Procedures Referred By Contact Refer red To Contact Endocrinology Merrill Harris M.D . [facility] [address] [place] [address] Referral ID Status Reason Start Date Expiration Date Visits Requ ested Visits Authorized [id number] Closed 05/24/2020 05/24/2021 1 1 Scheduling Instructions Please schedule a 30 minute appointment. Outpatient (Routine) - Closed Specialty Diagnoses / Procedures Referred By Contact Refer red To Contact Diagnoses Cancer Colon Family History Screening Cancer Colon Merrill Harris M.D. [facility] Procedures Colonoscopy [address] [place] [phone] Referral ID Status Reason Start Date Expiration Date Visits Requ ested Visits Authorized [id number] Closed 05/24/2020 05/24/2021 1 1 Outpatient (Routine) - Closed Specialty Diagnoses / Procedures Referred By Contact Refer red To Contact Diagnoses Osteoporosis Merrill Harris M.D. [facility] Procedures BMD Bone Density Spine Hips [address] [place], [place] [address] Referral ID Status Reason Start Date Expiration Date Visits Requ ested Visits Authorized [id number] Closed 05/24/2020 05/24/2021 1 1 Outpatient (Routine) - Closed Specialty Diagnoses / Procedures Referred By Contact Refer red To Contact Diagnoses Screening Mammogram Breast Cancer Merrill Harris M.D. [place] Procedures BI Breast Screening Bilateral with Tomosynthesis [address] [place] [address] Referral ID Status Reason Start Date Expiration Date Visits Requ ested Visits Authorized [id number] Closed 05/24/2020 05/24/2021 1 1 Encounter Details Date Type Department Care Team Description 05/24/2020 Orders Only Division of Merrill Harris Osteoporosi s (Primary Dx); Endocrinology in [place] Leukocytosis; [place], [place] [address] [facility] Screening Mammogram Breast Cancer; [address] [place], [place] Cancer Colon Family History; [place] [phone] Screening Cancer Colon [phone] Social History Tobacco Use Types Packs/Day Years [...] have completed or the highest Armando, MEd, CASINO SURVEILLANCE OFFICER, ALL) degree you have received? Sex Assigned at Date Recorded Female 07/26/2020 9:06 PM CDT documented as of this encounter Plan of Treatment Upcoming Encounters Date Type Specialty Care Team Description 09/08/2022 Procedure visit Aesthetic Medicine and Juanita Vaz, Surgery TRAUMA SURGEON, C.N.P. [address] [place] [phone] (Wo rk) 09/08/2022 Comprehensive Visit Aesthetic Medicine Lucero Mckeon, Surgery M.D., Ph.D. [address] [place] [phone] (Charlotte bentley) Scheduled Referrals Name Type Priority Associated Order Schedule Diagnoses Endocrinology office Outpatient Referral Routine Expected: visit (clinic) 06/10/2020 (Approximate), Expires: 05/24/2021 documented as of this encounter Results BI Breast Screening Bilateral with Tomosynthesis (09/10/2020 2:34 PM MEAT HOSTESS) Anatomical Region Laterality Modality Breast, Breast Imaging RST LOS, Breast Imaging [facility], [facility] Bilateral Mammography Imaging [facility] Specimen (Source) Anatomical Collection Method Collection Time Re ceived Time Location / / Volume Laterality 09/10/2020 3:31 PM MEAT HOSTESS Impressions 09/10/2020 3:33 PM MEAT HOSTESS Benign. RECOMMENDATION: ??Annual Screening Mammo gram ASSESSMENT: ??BI-RADS: 2: Benign. Narrative 09/10/2020 3:33 PM MEAT HOSTESS EXAM: ??BI BREAST SCREENING BILATERAL WITH TOMOSYNTHESIS [...] TOMOSYNTHESIS Current study was evaluated with a Pocket Socialu ter Aided Detection (CAD) system. INDICATION: Screening [...] 0.041 g/cm(sq) ?The absolute BMD change from [facility], ??0.092g/cm(sq), is ?greater than the least significant [...] including images and graphs, is available in [employer]. ?In the absence of other causes of [...] including images and graphs, is available in [employer]. In the absence of other causes of [...] evidence of skeletal fragility in the [facility]. Right ALEKS. Patient does not meet ISCD guidelines fo r FRAX calculations. IMPRESSION: Osteoporosis Merrill WARD DXA PROCEDURES (ABNORMAL) CBC with Differential, Blood (07/01/2020 11:28 AM CDT) [facility] Time Signature Hemoglobin 13.8 11.6 - [...] Address City/State/ZIP Code Phon e Number [facility] - [address] [place], [place] [address] [facility] [place] [address] Laboratories-[facility] [address] documented in this encounter Visit Diagnoses Diagnosis Osteoporosis - Primary Leukocytosis Screening Mammogram Breast Cancer Cancer Colon Family History Screening Cancer Colon Osteoporosis Screening Mammogram Breast Cancer documented in this encounter Care Teams Waist Presser Relationship Specialty Start Date End Date Elsewhere, Pcp PCP - General Internal Medicine 07/03/17 documented as of this encounter
--- OUTSIDE RECORDS SUMMARY | 2022-07-30 20:36 | XMS_ITS | Encounter Summary ---
:1945 Author Organization [facility] Address [address] [place] [address] Care Team Providers Name Role Phone Elsewhere, [...] have completed or the highest Armando, MEd, BANKING SUPERVISOR, ALL) degree you have received? Sex Assigned at Date Recorded Female 07/26/2020 9:06 PM CDT documented as of this encounter Plan of Treatment Upcoming Encounters Date Type Specialty Care Team Description 09/08/2022 Procedure visit Aesthetic Medicine and Juanita Vaz, Surgery MOTION PICTURE FILM EXAMINER, C.N.P. [address] [place] [phone] (Charlotte rk) 09/08/2022 Comprehensive Visit Aesthetic Medicine Lucero Mckeon, Surgery M.DAnali, Ph.D. [address] [place] [phone] (Charlotte rk) documented as of this encounter Procedures Procedure Name Priority Date/Time Associated Diagnosis Comme nts VASCULAR IMAGE EXAM Routine 09/11/2019 1:09 PM Re sults for this BRASSIERE CUP MOLD CUTTER procedure are i n the results section. documented in this encounter Results Legs-Vascular Image Exam (09/11/2019 1:09 PM BRASSIERE CUP MOLD CUTTER) Specimen (Source) Anatomical Collection Method Collection Time Re ceived Time Location / / Volume Laterality 09/11/2019 1:06 PM BRASSIERE CUP MOLD CUTTER Narrative [facility] - 09/11/2019 1:09 PM BRASSIERE CUP MOLD CUTTER This order has been created and auto-finalized [...] on filedocumented in this encounter Care Teams Land Use Planner Relationship Specialty Start Date End Date Elsewhere, Pcp PCP - General Internal Medicine 07/03/17 documented as of this encounter
--- OUTSIDE RECORDS SUMMARY | 2022-07-30 20:36 | XMS_ITS | Encounter Summary ---
:1945 Author Organization [facility] Address [address] [place] [address] Care Team Providers Name Role Phone Elsewhere, Pcp Primary Care Provider Unavailable Encounter Details Date Type Department Care Team Description 05/16/2020 Hospital Encounter Department of Merrill Harris Leuk ocytosis Laboratory Medicine and [place] Pathology, [address] [phone] [place] [address] [place] [address] Social History Tobacco Use Types [...] have completed or the highest Armando, MEd, SALON SUPERVISOR, ALL) degree you have received? Sex [...] visit Aesthetic Medicine and Juanita Vaz, Surgery QUALITY ASSURANCE REPRESENTATIVE, C.N.P. [address] [place] [phone] (Wo rk) 09/08/2022 Comprehensive Visit Aesthetic Medicine and Lucero Pritchard, Surgery MJayda, Ph.D. [address] [place] [phone] (Charlotte rk) documented as of this encounter Procedures Procedure Name Priority Date/Time Associated Diagnosis Comme nts SPSMA RESULT Routine 05/16/2020 4:14 PM Leukocytosis Results f or this CDT procedure are i n the results section . documented in this encounter Results (ABNORMAL) Morphology Evaluation (Special Smear) (05/16/2020 4:14 PM CDT) [facility] gist Method Time Signature Neutrophilic Segs 90 (H) 50 - 75 % 05/16/2020 [facility] 5:54 PM CDT Lymphocytes 5 (L) 18 - 42 % 05/16/2020 PM 5:54 PM CDT Monocytes 5 2 - 11 % 05/16/2020 [facility] 5:54 PM CDT Interpretation SeeComment 05/16/2020 [facility] 5:54 PM CDT Comment: Peripheral blood smear reviewed ; no diagnostic abnormalities are seen. Reviewed by: Michelle 05/16/2020 5:54 PM CDT [facility] Specimen Anatomical Collection Method Collection Time Receive d Time (Source) Location / / Volume Laterality Blood (Blood, 05/16/2020 4:14 PM 05/16/20 20 4:49 Venous) CDT PM CDT Merrill Harris M.D. LAB BLOOD ADD-ON Performing Organization Address City/State/ZIP Code Phon e Number [facility] - [address] [place], [place] [address] [place] [address] Laboratories-[facility] 200 [facility] documented in this encounter Visit Diagnoses Diagnosis Leukocytosis documented in this encounter Care Teams Member Service Representative Relationship Specialty Start Date End Date Elsewhere, Pcp PCP - General Internal Medicine 07/03/17 documented as of this encounter
--- OUTSIDE RECORDS SUMMARY | 2022-07-30 20:36 | XMS_ITS | Encounter Summary ---
:1945 Author Organization [facility] Address [address] [place] [address] Care Team Providers Name Role Phone Elsewhere, Pcp Primary Care Provider Unavailable Reason for Visit Reason Comments Pre-visit Testing Orders Encounter Details Date Type Department Care Team Description 05/17/2020 Clinical Communication Department of [place] Pre- visit Testing Orthopedic Surgery Reji Anna Orders in [place] [address] [address] [place], [place] [address] [place] [phone] [place], [place] [phone] (Work) [phone] Social History Tobacco Use Types Packs/Day Years [...] have completed or the highest Armando, MEd, RECTIFICATION PRINTER, ALL) degree you have received? Sex Assigned [...] visit Aesthetic Medicine and Juanita Vaz, Surgery LOCOMOTIVE CRANE ENGINEER, C.N.P. [address] [place] [phone] (Wo rk) 09/08/2022 Comprehensive Visit Aesthetic Medicine Lucero Mckeon Surgery M.D., Ph.D. [address] [place] [phone] (Wo rk) documented as of this encounter [...] Left documented in this encounter Care Teams Agile Scrum Coach Relationship Specialty Start Date End Date Elsewhere, Pcp PCP - General Internal Medicine 07/03/17 documented as of this encounter
--- OUTSIDE RECORDS SUMMARY | 2022-07-30 20:36 | XMS_ITS | Encounter Summary ---
:1945 Author Organization [facility] Address [address] [place] [address] Care Team Providers Name Role Phone Elsewhere, Pcp Primary Care Provider Unavailable Reason for Referral Outpatient (Routine) - Closed Specialty Diagnoses / Procedures Referred By Contact Refer red To Contact Diagnoses Cancer Colon Family History Screening Cancer Colon Merrill Harris M.D. [facility] Procedures Colonoscopy [address] [place] [address] Referral ID Status Reason Start Date Expiration Date Visits Requ ested Visits Authorized [id number] Closed 05/24/2020 05/24/2021 1 1 Reason for Visit Outpatient (Routine) - Closed Specialty Diagnoses / Procedures Referred By Contact Refer red To Contact Diagnoses Cancer Colon Family History Screening Cancer Colon Merrill Harris M.D. [facility] Procedures Colonoscopy [address] [place] [address] Referral ID Status Reason Start Date Expiration Date Visits Requ ested Visits Authorized [id number] Closed 05/24/2020 05/24/2021 1 1 Encounter Details Date Type Department Care Team Description 07/01/2020 Hospital Division of Merrill Harris Cancer Colon F amily History; Encounter Gastroenterology javier Perera M.D. Screening Cancer Colon [place], [place] [address] [facility] [address] [place] [phone] Social History Tobacco Use Types Packs/Day Years [...] or the highest Armando, MEd, HEALTH SAFETY SPECIALIST, ALL) degree you have received? Sex [...] Procedure Department : DIVISION OF GASTROENTEROLOGY IN [place], [place] SUBJECTIVE Past Medical History: Diagnosis Date [...] Master's degree (e.g., MA, MS, Armando, MEd, HEALTH SAFETY SPECIALIST, ALL) Occupational History ??? 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 Resides in [place]. 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 Ambulatory Infusion Pump/Implanted Archery Equipment Repairer- Peripheral IV Catheter 07/01/20 20 G Right [...] visit Aesthetic Medicine and Juanita Vaz, Surgery SUPERVISOR GAME FARM, C.N.P. [address] [place] [address] (Wo rk) 09/08/2022 Comprehensive Visit Aesthetic Medicine and Lucero Pritchard, Surgery Francesca, Ph.D. [address] [place] [phone] (Wo rk) documented as of this encounter [...] Volume Laterality 07/01/2020 9:17 AM CDT Impressions [facility] - 07/01/2020 10:23 AM CDT Post-op Diagnoses: ? - The entire examined colon is no rmal. ? - Scar in the distal rectum. ? - No specimens collected. Narrative [facility] - 07/01/2020 10:23 AM CDT Gonda 9 [...] preparation was evaluated ? using the BBPS ([place] Bowel Prep aration Scale) with scores of: [...] 0952 documented in this encounter Care Teams Clinical Research Director Relationship Specialty Start Date End Date Elsewhere, Pcp PCP - General Internal Medicine 07/03/17 documented as of this encounter
--- OUTSIDE RECORDS SUMMARY | 2022-07-30 20:36 | XMS_ITS | Encounter Summary ---
:1945 Author Organization [facility] Address [address] [place] [address] Care Team Providers Name Role Phone Elsewhere, Pcp Primary Care Provider Unavailable Reason for Referral Outpatient (Routine) - Closed Specialty Diagnoses / Procedures Referred By Contact Refer red To Contact Diagnoses Osteoporosis Merrill Harris M.D. [facility] Procedures BMD Bone Density Spine Hips [address] [place] [address] Referral ID Status Reason Start Date Expiration Date Visits Requ ested Visits Authorized [id number] Closed 05/24/2020 05/24/2021 1 1 Reason for Visit Outpatient (Routine) - Closed Specialty Diagnoses / Procedures Referred By Contact Refer red To Contact Diagnoses Osteoporosis Merrill Harris M.D. [facility] Procedures BMD Bone Density Spine Hips [address] [place], [place] [address] Referral ID Status Reason Start Date Expiration Date Visits Requ ested Visits Authorized [id number] Closed 05/24/2020 05/24/2021 1 1 Encounter Details Date Type Department Care Team Description 07/01/2020 Hospital Encounter Department of Merrill Harris, Oste oporosis Radiology, Marino Ma [facility], in [place], [address] [place], [place] [address] [facility] [address] [place], [place] [phone] ( rk) [phone] Social History Tobacco Use Types Packs/Day Years [...] have completed or the highest Armando, MEd, BUFFER CHROME, ALL) degree you have received? Sex Assigned [...] visit Aesthetic Medicine and Juanita Vaz, Surgery SUPPORTIVE EMPLOYMENT CASE MANAGER, C.N.P. [address] [place] [phone] (Wo rk) 09/08/2022 Comprehensive Visit Aesthetic Medicine Lucero Mckeon, Surgery M.DAnali, Ph.D. [address] [place] [phone] (Wo rk) documented as of this encounter [...] including images and graphs, is available in [employer]. ?In the absence of other causes of [...] including images and graphs, is available in [employer]. In the absence of other causes of [...] evidence of skeletal fragility in the [facility] clinical setting. Right ALEKS. Patient does not meet ISCD guidelines fo r FRAX calculations. IMPRESSION: Osteoporosis Merrill Harris M.D. [facility] DXA PROCEDURES documented in this encounter Visit Diagnoses Diagnosis Osteoporosis documented in this encounter Care Teams Oriental Rug Stretcher Relationship Specialty Start Date End Date Elsewhere, Pcp PCP - General Internal Medicine 07/03/17 documented as of this encounter
--- OUTSIDE RECORDS SUMMARY | 2022-07-30 20:36 | XMS_ITS | Encounter Summary ---
:1945 Author Organization [facility] Address [address] [place] [address] Care Team Providers Name Role Phone Elsewhere, Pcp Primary Care Provider Unavailable Encounter Details Date Type Department Care Team Description 08/18/2019 Diagnostic Department of [place], Loss Hearing Otorhinolaryngology in [place], [place] mEerald Harris.CAnaliCAnali-Gage Bilateral (Primary [address] [place]) [place] [address] [facility] [phone] [place] [address] Social History Tobacco Use Types [...] have completed or the highest Armando, MEd, ACCOUNTING TUTOR, ALL) degree you have received? Sex [...] been remade. Hearing Aid Information Left Right Gas Worker [employer] Model Linx 3D 577 Linx 3D 577 Style BTE (xjiunu-dmi-mhy) BTE (jgmcyy-lba-rjm) Serial Number [id number] Battery Size 13 13 ? Coupling Custom earmold, PARCEL POST DELIVERY#5 Custom earmold, PARCEL POST DELIVERY#5 ? Warranty Date 05/12/2022 05/12/2022 Trial Period [...] overall gain by 1 step in the [employer] Online[employer] fitting software, and to increase tinnitus masking signal in the left hearing aid only by 1 step. Today we reviewed the procedure for obtaining follow-up care. An order was placed for recall appointment in 6 months. #1 Loss Hearing Sensorineural Bilateral EL ACCOMMODATIONS RATER documented in this encounter Plan of Treatment Upcoming Encounters Date Type Specialty Care Team Description 09/08/2022 Procedure visit Aesthetic Medicine and Juanita Vaz, Surgery DIRECTOR SCRIPT, C.N.P. [address] [phone] (Wo rk) 09/08/2022 Comprehensive Visit Aesthetic Medicine Lucero Mckeon, Surgery M.DAnali, Ph.D. [address] [place] [address] (Wo rk) Scheduled Orders Name Type Priority Associated Diagnoses Order S chedule Hearing aid check Audiology Routine Loss Hearing Sensorineu ral Expected: 02/16/2020 Bilateral (Approximate), Expires: 2021 documented as of this encounter Visit Diagnoses Diagnosis Loss Hearing Sensorineural Bilateral - P rimary documented in this encounter Care Teams Media Marketing Coordinator Relationship Specialty Start Date End Date Elsewhere, Pcp PCP - General Internal Medicine 07/03/17 documented as of this encounter
--- OUTSIDE RECORDS SUMMARY | 2022-07-30 20:36 | XMS_ITS | Encounter Summary ---
:1945 Author Organization [facility] Address [address] [place] [address] Care Team Providers Name Role Phone Elsewhere, Pcp Primary Care Provider Unavailable Reason for Visit Reason Onset Date Comments requesting sooner apt 12/04/2019 Encounter Details Date Type Department Care Team Description 12/04/2019 Clinical Division of Merrill Harris requesting maxine humphries Communication Endocrinology in [place], MJair. apt [place], [place] [address] [facility] [address] [place] [phone] Social History Tobacco Use Types Packs/Day Years [...] have completed or the highest Armando, MEd, TAKE AWAY MAN, ALL) degree you have received? Sex Assigned [...] available sooner I will let her know. HERIZATION FIELD TECHNICIAN Telephone Encounter - Merrill Harris M.D. - 12/07/2019 11:58 AM CST Lea Mcgregor! HERIZATION FIELD TECHNICIAN Telephone Encounter - Lea Massey - 12/06/2019 4:[address] Harris, I think you are away from the clinic that day 12/28/19. I am still working on trying to find a sooner appointment for the patient and will touch base with her tomorrow. Meche Tate HERIZATION FIELD TECHNICIAN Telephone Encounter - Reinaldo Blanco - 12/06/2019 1:[address] Harris, Patient called again this afternoon and asked if you could see her before 12/27 when she will be traveling. She is currently scheduled for 01/08 with you. Please advise if we can add her on before 12/27 sometime. Thank you, Reinaldo Tate PASS call pt back when you can. HERIZATION FIELD TECHNICIAN Telephone Encounter - Merrill Harris M.D. - [...] to be repeated. Thanks for the note. HERIZATION FIELD TECHNICIAN Telephone Encounter - Lucero Thompson - 12/05/2019 1:[address] Harris, We received a fax today stating images were pushed and bone density is viewable in [employer] dated 11/23/2019 Thank you Lucero HERIZATION FIELD TECHNICIAN Telephone Encounter - Merrill Harris M.D. - 12/04/2019 9:58 AM CST Please request a CD containing the full bone density report from the radiology department so that I can determine if the bone density study needs to be repeated. Thanks for the note. HERIZATION FIELD TECHNICIAN Telephone Encounter - Margot Haq - 12/04/2019 [...] date and time. R: PASS contact patient via:[phone] Please route your response to RST END Scheduling pool. Thank you, Margot Tate HERIZATION FIELD TECHNICIAN documented in this encounter Plan of Treatment Upcoming Encounters Date Type Specialty Care Team Description 09/08/2022 Procedure visit Aesthetic Medicine and Juanita Vaz, Surgery BOBBIN CLEANER, C.N.P. [address] [place] [phone] (Charlotte bentley) 09/08/2022 Comprehensive Visit Aesthetic Medicine and Lucero Pritchard, Surgery MJayda, Ph.D. [address] [place] [phone] (Charlotte bentley) documented as of this encounter Visit Diagnoses Not on filedocumented in this encounter Care Teams Television Installer Helper Relationship Specialty Start Date End Date Elsewhere, Pcp PCP - General Internal Medicine 07/03/17 documented as of this encounter
--- OUTSIDE RECORDS SUMMARY | 2022-07-30 20:37 | XMS_ITS | Encounter Summary ---
:1945 Author Organization [facility] Address [address] [place] [address] Care Team Providers Name Role Phone Elsewhere, Pcp Primary Care Provider Unavailable Reason for Visit Reason Comments Patient Education Appointment Request (Routine) - Closed Specialty Diagnoses / Procedures Referred By Contact Refer red To Contact Patient Education Referral ID Status Reason Start Date Expiration Date Visits Requ ested Visits Authorized [id number] Closed 11/30/2018 11/30/2019 1 1 Encounter Details Date Type Department Care Team Description 12/01/2018 Education Department of Patient Mitul Delgado Education in [place], ([facility] [address] [place] [address] Social History Tobacco Use Types Packs/Day [...] visit Aesthetic Medicine and Juanita Vaz, Surgery CARGO WORKER, C.N.P. [address] [place] [phone] (Charlotte bentley) 09/08/2022 Comprehensive Visit Aesthetic Medicine Lucero Mckeon, Surgery MJayda, Ph.D. [address] [place] [phone] (Charlotte bentley) documented as of this encounter Visit Diagnoses Not on filedocumented in this encounter Care Teams Vp Human Resources Relationship Specialty Start Date End Date Elsewhere, Pcp PCP - General Internal Medicine 07/03/17 documented as of this encounter
--- OUTSIDE RECORDS SUMMARY | 2022-07-30 20:37 | XMS_ITS | Encounter Summary ---
:1945 Author Organization [facility] Address [address] [place] [address] Care Team Providers Name Role Phone Elsewhere, Pcp Primary Care Provider Unavailable Reason for Visit Appointment Request (Routine) - Closed Specialty Diagnoses / Procedures Referred By Contact Refer red To Contact [facility] Referral ID Status Reason Start Date Expiration Date Visits Requ ested Visits Authorized [id number] Closed 03/21/2019 03/20/2020 1 1 Encounter Details Date Type Department Care Team Description 06/13/2019 Comprehensive Visit Menopause and Yesica Villarreal (Primary Dx); Women's Sexual L, D.O., Vaginitis Atr [facility] in [place], [place] [address] [facility] [address] [place] [phone] Social History Tobacco Use Types Packs/Day Years [...] have completed or the highest Armando, MEd, BUTTER MELTER, ALL) degree you have received? Sex Assigned [...] treated with E-stim.As she is followed at [facility]. She sees Urology on a regular basis [...] followin. Osteopenia She is followed at the [facility] and repeat bone mineral density is recommended. [...] visit Aesthetic Medicine and Juanita Vaz, Surgery UPPER CUTTER MACHINE, C.N.P. [address] [place] [phone] (Charlotte bentley) 09/08/2022 Comprehensive Visit Aesthetic Lucero Arita, Surgery M.D., Ph.D. [address] [place] [phone] (Charlotte bentley) documented as of this encounter [...] City/State/ZIP Code Phon e Number [facility] - [address] [place] [address] 05 [facility] documented in this encounter Visit Diagnoses Diagnosis Osteopenia - Primary Vaginitis Atrophic documented in this encounter Care Teams Manufacturing Storeperson Relationship Specialty Start Date End Date Elsewhere, Pcp PCP - General Internal Medicine 07/03/17 documented as of this encounter
--- OUTSIDE RECORDS SUMMARY | 2022-07-30 20:37 | XMS_ITS | Encounter Summary ---
:1945 Author Organization [facility] Address [address] [place] [address] Care Team Providers Name Role Phone Elsewhere, Pcp Primary Care Provider Unavailable Reason for Visit Reason Comments Patient Education Appointment Request (Routine) - Closed Specialty Diagnoses / Procedures Referred By Contact Refer red To Contact Patient Education Referral ID Status Reason Start Date Expiration Date Visits Requ ested Visits Authorized [id number] Closed 04/26/2019 04/25/2020 1 1 Encounter Details Date Type Department Care Team Description 04/27/2019 Education Department of Patient Margot Jordan R.N. Education in [place], [facility] [address] [place], [place] [address] [facility] [address] [place] [address] [phone] Social History Tobacco Use Types Packs/Day Years [...] have completed or the highest Armando, MEd, RECORD CENTER COORDINATOR, ALL) degree you have received? Sex Assigned at Date Recorded Female 07/26/2020 9:06 PM CDT documented as of this encounter Plan of Treatment Upcoming Encounters Date Type Specialty Care Team Description 09/08/2022 Procedure visit Aesthetic Medicine and Juanita Vaz, Surgery PAN RECLAIM PROCESSOR, C.N.P. [address] [place] [phone] (Charlotte bentley) 09/08/2022 Comprehensive Visit Aesthetic Medicine Lucero Mckeon, Surgery M.D., Ph.D. [address] [place] [phone] (Charlotte bentley) documented as of this encounter Visit Diagnoses Not on filedocumented in this encounter Care Teams Log Sorter Relationship Specialty Start Date End Date Elsewhere, Pcp PCP - General Internal Medicine 07/03/17 documented as of this encounter
--- OUTSIDE RECORDS SUMMARY | 2022-07-30 20:37 | XMS_ITS | Encounter Summary ---
:1945 Author Organization [facility] Address [address] [place] [address] Care Team Providers Name Role Phone Elsewhere, Pcp Primary Care Provider Unavailable Encounter Details Date Type Department Care Team Description 06/08/2019 Diagnostic Department of [place], Loss Hearing Otorhinolaryngology in Clive Solano [place], [place] Emerald Harris.CAnaliCAnali-Gage Bilateral (Primary [address] [facility] [address] [place] [phone] [facility] [phone] [place] [address] Social History Tobacco Use Types [...] have completed or the highest Armando, MEd, TELEGRAPH SERVICE RATER, ALL) degree you have received? Sex Assigned [...] amplification on??04/27/2019. Hearing Aid Information Left Right Personal Care Service Provider eGood Model Linx 3D 577 Linx 3D 577 Style BTE (jtunyo-qhd-yds) BTE (uedcug-niu-ovs) Serial Number [id number] Battery Size 13 13 ? Coupling Custom earmold, IT WEB DEVELOPMENT CONSULTANT#5 Custom earmold, IT WEB DEVELOPMENT CONSULTANT#5 ? Warranty Date 05/12/2022 05/12/2022 Trial Period [...] remake earmold will be ordered from the rn home health. Recommended return visit in three weeks. #1 Loss Hearing Sensorineural Bilateral documented in this encounter Plan of Treatment Upcoming Encounters Date Type Specialty Care Team Description 09/08/2022 Procedure visit Aesthetic Medicine and Juanita Vaz, Surgery PERFORATOR OPERATOR OIL WELL, C.N.P. [address] [place] [phone] (Wo rk) 09/08/2022 Comprehensive Visit Aesthetic Medicine and Lucero Pritchard, Surgery M.DAnali, Ph.D. [address] [place] [phone] (Wo rk) documented as of this encounter Visit Diagnoses Diagnosis Loss Hearing Sensorineural Bilateral - P rimary documented in this encounter Care Teams Detailer Furniture Relationship Specialty Start Date End Date Elsewhere, Pcp PCP - General Internal Medicine 07/03/17 documented as of this encounter
--- OUTSIDE RECORDS SUMMARY | 2022-07-30 20:37 | XMS_ITS | Encounter Summary ---
:1945 Author Organization [facility] Address [address] [place] [address] Care Team Providers Name Role Phone Elsewhere, [...] completed or the highest Armando, MEd, SENIOR MAINTENANCE TECHNICIAN, ALL) degree you have received? Sex Assigned at Date Recorded Female 07/26/2020 9:06 PM CDT documented as of this encounter Plan of Treatment Upcoming Encounters Date Type Specialty Care Team Description 09/08/2022 Procedure visit Aesthetic Medicine and Juanita Vaz, Surgery CERAMIC RESTORER, C.N.P. [address] [place] [phone] (Charlotte bentley) 09/08/2022 Comprehensive Visit Aesthetic Medicine Lucero Mkceon, Surgery M.DAnali, Ph.D. [address] [place] [phone] (Charlotte bentley) documented as of this encounter [...] filedocumented in this encounter Care Teams Shift Nurse Manager Relationship Specialty Start Date End Date Elsewhere, Pcp PCP - General Internal Medicine 07/03/17 documented as of this encounter
--- OUTSIDE RECORDS SUMMARY | 2022-07-30 20:37 | XMS_ITS | Encounter Summary ---
:1945 Author Organization [facility] Address [address] [place] [address] Care Team Providers Name Role Phone Elsewhere, Pcp Primary Care Provider Unavailable Reason for Visit Reason Comments Insect Bite Pt has a bug bite on left si de of neck. Encounter Details Date Type Department Care Team Description 03/11/2019 Emergency [place] [facility] Zonia Escobedo Ins ect Bite Other Department A, R.N. Specified Part Neck [address] [facility] Initial (Primary Dx) [place] [id number] Social History Tobacco Use Types Packs/Day Years [...] or slept in a prison (including now)? Sex Assigned at Date Recorded [...] sent through Care Everywhere. Insect Bite Adult Ppyu-ri-Ptdg (Omani)documented in this encounter Medications at Time of [...] find any ticks. She has been using fvwl-rim-tnicbxe antihistamine cream for symptom management, reports complete [...] was encouraged to continue to use her eyic-glq-ktndhzw antihistamine cream as needed for symptoms. She was also advised that she may add an mtnb-qhl-rqqnfrb antihistamine such as Claritin or Cetirizine for [...] visit Aesthetic Medicine and Juanita Vaz, Surgery SEISMOGRAPH SUPERVISOR, C.N.P. [address] [place] [phone] (Charlotte bentley) 09/08/2022 Comprehensive Visit Aesthetic Medicine Lucero Mckeon, Surgery M.DAnali, Ph.D. [address] [place] [address] (Charlotte bentley) documented as of this encounter Visit Diagnoses Diagnosis Insect Bite Other Specified Part Neck In itial - Primary documented in this encounter Care Teams Thermostat Mechanic Relationship Specialty Start Date End Date Elsewhere, Pcp PCP - General Internal Medicine 07/03/17 documented as of this encounter
--- OUTSIDE RECORDS SUMMARY | 2022-07-30 20:37 | XMS_ITS | Encounter Summary ---
:[address] [facility] Address [address] [place] [address] Care Team Providers Name Role Phone Elsewhere, Pcp Primary Care Provider Unavailable Reason for Visit Appointment Request (Routine) - Closed Specialty Diagnoses / Procedures Referred By Contact Refer red To Contact Preventive Medicine Referral ID Status Reason Start Date Expiration Date Visits Requ ested Visits Authorized [id number] Closed 03/21/2019 03/20/2020 1 1 Encounter Details Date Type Department Care Team Description 06/08/2019 Comprehensive Visit Section of Christine Gray Preventive (Primary Dx); Preventive, M, CATERING TRUCK DRIVER, Satisfactory Br [facility] Exam Transportation and C.N.P., D.N.P . Occupational Medicine [address] [facility] [address] 200 [facility] [phone] [place], [place] (Work) [phone] Social History Tobacco Use Types Packs/Day Years [...] have completed or the highest Armando, MEd, GAS PROCESSING PLANT OPERATOR, ALL) degree you have received? Sex [...] a primary care provider at home in [place], [place]. Past history significant for osteopenia, hypertension, [...] the Cardiovascular Clinic near her home in [place]. Known early family history of CAD or [...] years ago and has been evaluated in CAT BREEDER here at [place] for that concern. At that time patient [...] She did have breast reduction surgery in [phone]. Denies any breast symptoms or changes. She does perform regular breast self-examinations and has not noticed any lumps, nipple discharge, retraction, or skin changes. She notes that she has fibrocystic dense breasts. Last mammogram completed at [facility] in 2015 showed a B breast density. No known family history of breast cancer. Osteoporosis screening: Patient has a history of osteopenia with her last BMD screening completed at [place] on 04/13/2018,please refer to outside records. She [...] evaluation in August with Dr. Galicia at [facility]. She does wear eye correction. REVIEW [...] and Juanita Vaz, Surgery CLAUDIA, C.N.P. [address] [place] [phone] (Wo rk) 09/08/2022 Comprehensive Visit Aesthetic Medicine and Lucero Pritchard, Surgery M.DAnali, Ph.D. [address] [place] [phone] (Wo rk) documented as of this encounter Visit Diagnoses Diagnosis Counseling Preventive - Primary Satisfactory Breast Exam documented in this encounter Care Teams Qa Software Tester Relationship Specialty Start Date End Date Elsewhere, Pcp PCP - General Internal Medicine 07/03/17 documented as of this encounter
--- OUTSIDE RECORDS SUMMARY | 2022-07-30 20:37 | XMS_ITS | Encounter Summary ---
:1945 Author Organization [facility] Address [address] [place] [address] Care Team Providers Name Role Phone Elsewhere, Pcp Primary Care Provider Unavailable Reason for Referral Outpatient (Routine) - Closed Specialty Diagnoses / Procedures Referred By Contact Refer red To Contact Otorhinolaryngology Diagnoses Tinnitus Bilateral Manisha Mead M.D. [facility] [address] [place] [address] Referral ID Status Reason Start Date Expiration Date Visits V isits Requested Authorized [id number] Closed Specialty 12/02/2018 12/02/2019 1 1 Services Required A RELATIONS MANAGER Reason for Visit Reason Comments Return Visit Appointment Request (Routine) - Closed Specialty Diagnoses / Procedures Referred By Contact Refer red To Contact General Internal Medicine Referral ID Status Reason Start Date Expiration Date Visits Requ ested Visits Authorized [id number] Closed 09/12/2018 09/12/2019 1 1 Encounter Details Date Type Department Care Team Description 12/02/2018 Office Visit Division of Manisha Maldonado Tinnitus Bilateral (Primary Dx); Internal Medicine in jE Kaur Hypertension Essential Primary; [place], [place] [address] [facility] Varicose Vein Lower Extremity With Pain Bilateral; [address] [place], [place] Osteopenia; [place] [address] Hyperlipidemia [address] [phone] Social History Tobacco Use Types Packs/Day Years [...] More than 4 times per year 01/28/2021 roman catholic services? Do you belong to any [...] patient andcoordination of care as described above. A RELATIONS MANAGER documented in this encounter Plan of Treatment Upcoming Encounters Date Type Specialty Care Team Description 09/08/2022 Procedure visit Aesthetic Medicine Juanita Samson, Surgery BELT LOOP MACHINE OPERATOR, C.N.P. [address] [place] [phone] (Charlotte bentley) 09/08/2022 Comprehensive Visit Aesthetic Lucero Arita Surgery Francesca, Ph.D. [address] [place] [phone] (Charlotte bentley) Scheduled Referrals Name Type Priority [...] Bilateral documented in this encounter Care Teams Casting Inspector Relationship Specialty Start Date End Date Elsewhere, Pcp PCP - General Internal Medicine 07/03/17 documented as of this encounter
--- OUTSIDE RECORDS SUMMARY | 2022-07-30 20:37 | XMS_ITS | Encounter Summary ---
:1945 Author Organization [facility] Address [address] [place] [address] Care Team Providers Name Role Phone Elsewhere, Pcp Primary Care Provider Unavailable Reason for Visit Outpatient (Routine) - Closed Specialty Diagnoses / Procedures Referred By Contact Refer red To Contact Audiology Diagnoses Tinnitus Bilateral Timmy Qiu M.D. [address] [phone] Referral ID Status Reason Start Date Expiration Date Visits Requ ested Visits Authorized [id number] Closed 02/16/2019 02/16/2020 1 1 Encounter Details Date Type Department Care Team Description 03/31/2019 Diagnostic Department of [place], Loss Hearing S ensorineural Bilateral (Primary Dx); Otorhinolaryngology in Dorcas Solano tus Bilateral [place], [place] Steven, C.C.C.-A [address] [place] [address] [place] [address] [facility] [phone] [place] [address] Social History Tobacco Use Types Packs/Day Years [...] have completed or the highest Armando, MEd, RECEIVING SPECIALIST, ALL) degree you have received? Sex [...] the following recommendation was provided: Left Right Traveling Construction Superintendent ReSound ReSound Model Linx 3D Linx 3D Style BTE (knnrvs-ago-weh) BTE (knqpoi-kme-npv) Patient preferred to call back with a technology level preference. Earmold impressions obtained for both ears without incident. Custom earmolds will be ordered. A fitting appointment and follow-up appointments were scheduled. #1 Loss Hearing Sensorineural Bilateral #2 Tinnitus Bilateral documented in this encounter Plan of Treatment Upcoming Encounters Date Type Specialty Care Team Description 09/08/2022 Procedure visit Aesthetic Medicine and Juanita Vaz, Surgery CURTAIN ROLLER ASSEMBLER, C.N.P. [address] [place] [phone] (Wo rk) 09/08/2022 Comprehensive Visit Aesthetic Medicine Lucero Mckeon, Surgery rFancesca, Ph.D. [address] [place] [phone] (Wo rk) documented as of this encounter Visit Diagnoses Diagnosis Loss Hearing Sensorineural Bilateral - P rimary Tinnitus Bilateral documented in this encounter Care Teams Supervisor Vacuum Metalizing Relationship Specialty Start Date End Date Elsewhere, Pcp PCP - General Internal Medicine 07/03/17 documented as of this encounter
--- OUTSIDE RECORDS SUMMARY | 2022-07-30 20:37 | XMS_ITS | Encounter Summary ---
:1945 Author Organization [facility] Address [address] [place] [address] Care Team Providers Name Role Phone Elsewhere, Pcp Primary Care Provider Unavailable Encounter Details Date Type Department Care Team Description 12/02/2018 Orders Only Division of General Manisha Mead Tinn itus Bilateral Internal Medicine in M.D. (Primary Dx) [place], [place] [address] [place] [address] [place] [phone] Social History Tobacco Use Types Packs/Day Years [...] visit Aesthetic Medicine and Juanita Vaz, Surgery INFANTRY WEAPONS CREWMEMBER, C.N.P. [address] [place] [address] (Wo rk) 09/08/2022 Comprehensive Visit Aesthetic Medicine and Lucero Pritchard, Surgery M.Norma, Ph.D. [address] [place] [address] (Wo rk) documented as of this encounter [...] Primary documented in this encounter Care Teams Machine Brush Maker Relationship Specialty Start Date End Date Elsewhere, Pcp PCP - General Internal Medicine 07/03/17 documented as of this encounter
--- OUTSIDE RECORDS SUMMARY | 2022-07-30 20:37 | XMS_ITS | Encounter Summary ---
:1945 Author Organization [facility] Address [address] [place] [address] Care Team Providers Name Role Phone Elsewhere, Pcp Primary Care Provider Unavailable Encounter Details Date Type Department Care Team Description 06/13/2019 Education Menopause and Women's Sexual Tro ttLucero parsons R.N. [facility] in [place], [address] [place] [address] [place] [phone] [place] [address] [phone] Social History Tobacco Use Types Packs/Day Years [...] have completed or the highest Armando, MEd, PSYCHIATRIC CNS, ALL) degree you have received? Sex Assigned at Date Recorded Female 07/26/2020 9:06 PM CDT documented as of this encounter Progress Notes Lucero Rodriguez R.N. - 06/13/2019 3:00 PM CDT SUBJECTIVE REASON FOR VISIT Yamilethnoris Devlinbeba Sheikh seen today for initial patient education Referring provider: Dr. Yesica Villarreal ASSESSMENT/PLAN Patient education provided to: patient Teaching methods included: discussion, explanation and printed material Discussion included: bone health, vaginal health and moisturizers Education materials were given to the patient: yes documented in this encounter Plan of Treatment Upcoming Encounters Date Type Specialty Care Team Description 09/08/2022 Procedure visit Aesthetic Medicine and Juanita Vaz, Surgery RESEARCH CONSULTANT, C.N.P. [address] [place] [phone] (Wo rk) 09/08/2022 Comprehensive Visit Aesthetic Medicine and Lucero Pritchard, Surgery M.DAnali, Ph.D. [address] [place] [phone] (Wo rk) documented as of this encounter Visit Diagnoses Not on filedocumented in this encounter Care Teams Power Project Manager Relationship Specialty Start Date End Date Elsewhere, Pcp PCP - General Internal Medicine 07/03/17 documented as of this encounter
--- OUTSIDE RECORDS SUMMARY | 2022-07-30 20:37 | XMS_ITS | Encounter Summary ---
:1945 Author Organization [facility] Address [address] [place] [address] Care Team Providers Name Role Phone Elsewhere, Pcp Primary Care Provider Unavailable Encounter Details Date Type Department Care Team Description 02/16/2019 Diagnostic Department of Julia Ruano Au.D. [address] [place] [address] Tinnitus Bilateral (Primary Dx); Otorhinolaryngology in Cheryl Shukla Au.D. [address] [place] [address] Loss Hearing Sensorineural Bilateral [place], [place] [address] [place] [address] Social History Tobacco Use Types Packs/Day [...] Aesthetic Medicine and Juanita Vaz, Surgery CLINICAL PSYCHOLOGIST PRIVATE PRACTICE, C.N.P. [address] [place] [phone] ( rk) 09/08/2022 Comprehensive Visit Aesthetic Medicine and Lucero Pritchard, Andreia Ma, Ph.D. [address] [place] [phone] ( rk) documented as of this encounter [...] Bilateral documented in this encounter Care Teams Automatic Seamer Relationship Specialty Start Date End Date Elsewhere, Pcp PCP - General Internal Medicine 07/03/17 documented as of this encounter
--- OUTSIDE RECORDS SUMMARY | 2022-07-30 20:37 | XMS_ITS | Encounter Summary ---
:1945 Author Organization [facility] Address [address] [place] [address] Care Team Providers Name Role Phone Elsewhere, Pcp Primary Care Provider Unavailable Reason for Referral Outpatient (Routine) - Closed Specialty Diagnoses / Procedures Referred By Contact Refer red To Contact Audiology Diagnoses Tinnitus Bilateral Timmy Qiu M.D. [address] [phone] Referral ID Status Reason Start Date Expiration Date Visits Requ ested Visits Authorized [id number] Closed 02/16/2019 02/16/2020 1 1 Reason for Visit Outpatient (Routine) - Closed Specialty Diagnoses / Procedures Referred By Contact Refer red To Contact Otorhinolaryngology Diagnoses Tinnitus Bilateral Manisha Mead M.D. [facility] [address] [place] [phone] Referral ID Status Reason Start Date Expiration Date Visits V isits Requested Authorized [id number] Closed Specialty 12/02/2018 12/02/2019 1 1 Services Required Encounter Details Date Type Department Care Team Description 02/16/2019 Comprehensive Visit Department of Ladonna Duran M.D. [address] [place] [address] Loss Hearing Sensorineural Asymmetrical (Primary Dx); Otorhinolaryngology in Timmy Qiu M.D. [address] [place] [address] Tinnitus Bilateral [place], [place] [address] [place] [address] Social History Tobacco Use Types Packs/Day [...] audiogram to outside review of audiograms from [place] demonstrate relativelystable hearing thresholds. Over the 15 [...] visit Aesthetic Medicine and Juanita Vaz, Surgery COMPOSITION SIDING WORKER, C.N.P. [address] [place] [address] (Wo rk) 09/08/2022 Comprehensive Visit Aesthetic Medicine Lucero Mckeon, Surgery Francesca, Ph.D. [address] [place] [address] (Wo rk) Scheduled Referrals Name Type Priority Associated Order Schedule Diagnoses Otorhinolaryngology - Outpatient Routine Tinnitus Expect ed: Audiology - Hearing aid Referral Bilateral 02/01 program consult (clinic) (Ap proximate), Expires: 02/16/2022 documented as of this encounter Visit Diagnoses Diagnosis Loss Hearing Sensorineural Asymmetrical - Primary Tinnitus Bilateral documented in this encounter Care Teams Acds Block 1 Operator Relationship Specialty Start Date End Date Elsewhere, Pcp PCP - General Internal Medicine 07/03/17 documented as of this encounter
--- OUTSIDE RECORDS SUMMARY | 2022-07-30 20:37 | XMS_ITS | Encounter Summary ---
:1945 Author Organization [facility] Address [address] [place] [address] Care Team Providers Name Role Phone Elsewhere, Pcp Primary Care Provider Unavailable Reason for Visit Appointment Request (Routine) - Closed Specialty Diagnoses / Procedures Referred By Contact Refer red To Contact Otorhinolaryngology Referral ID Status Reason Start Date Expiration Date Visits Requ ested Visits Authorized [id number] Closed 03/31/2019 03/30/2020 1 Encounter Details Date Type Department Care Team Description 04/27/2019 Diagnostic Department of [place], Loss Hearing Otorhinolaryngology in Екатерина Teresa Senso rinalisonral [place], [place] Aleksandr Harris-A Bilateral (Primary [address] [facility] [address]) [place] [address] [facility] [phone] [place] [address] Social History Tobacco Use Types [...] have completed or the highest Armando, MEd, PANELBOARD ASSEMBLER, ALL) degree you have received? Sex [...] with amplification. Hearing Aid Information Left Right It Application Development Manager ReSound ReSound Model Linx 3D 577 Linx 3D 577 Style BTE (zwpmkg-loa-mrb) BTE (pewaax-gjh-dlm) Serial Number [id number] Battery Size 13 13 Coupling Custom earmold, AUTOMATION ENGINEER#5 Custom earmold, AUTOMATION ENGINEER#5 Warranty Date 05/12/2022 05/12/2022 Trial Period End [...] visit Aesthetic Medicine and Juanita Vaz, Surgery HOMOEOPATH, C.N.P. [address] [place] [phone] (Wo rk) 09/08/2022 Comprehensive Visit Aesthetic Medicine Lucero Mckeon, Surgery M.DAnali, Ph.D. [address] [place] [phone] (Wo rk) documented as of this encounter Visit Diagnoses Diagnosis Loss Hearing Sensorineural Bilateral - P rimary documented in this encounter Care Teams Display Decorator Relationship Specialty Start Date End Date Elsewhere, Pcp PCP - General Internal Medicine 07/03/17 documented as of this encounter
--- OUTSIDE RECORDS SUMMARY | 2022-07-30 20:37 | XMS_ITS | Encounter Summary ---
:1945 Author Organization [facility] Address [address] [place] [address] Care Team Providers Name Role Phone Elsewhere, Pcp Primary Care Provider Unavailable Encounter Details Date Type Department Care Team Description 07/25/2019 Clinical Communication Division of Merrill Harris Endocrinology in M.. [place], [place] [address] [facility] [address] [place] [phone] [phone] Social History Tobacco Use Types Packs/Day Years [...] have completed or the highest Armando, MEd, CIGAR HEAD PERFORATOR, ALL) degree you have received? Sex Assigned [...] to schedule. Thank you, Yamileth marino [place] [address] documented in this encounter Plan of Treatment Upcoming Encounters Date Type Specialty Care Team Description 09/08/2022 Procedure visit Aesthetic Medicine and Juanita Vaz, Surgery HANDLE MAKER, C.N.P. [address] [place] [phone] (Charlotte bentley) 09/08/2022 Comprehensive Visit Aesthetic Medicine Lucero Mckeon, Surgery MJayda, Ph.D. [address] [place] [phone] (Charlotte bentley) documented as of this encounter Visit Diagnoses Not on filedocumented in this encounter Care Teams Refrigerator Room Clerk Relationship Specialty Start Date End Date Elsewhere, Pcp PCP - General Internal Medicine 07/03/17 documented as of this encounter
--- OUTSIDE RECORDS SUMMARY | 2022-07-30 20:37 | XMS_ITS | Encounter Summary ---
:1945 Author Organization [facility] Address [address] [place] [address] Care Team Providers Name Role Phone Elsewhere, Pcp Primary Care Provider Unavailable Encounter Details Date Type Department Care Team Description 06/13/2019 Hospital Encounter Department of Laboratory Morgan Villarreal, Osteopenia Medicine and Pathology, D.O., M. P.[address] [place] [phone] [place] [address] [phone] Social History Tobacco Use Types Packs/Day Years [...] have completed or the highest Armando, MEd, SECOND BUTLER, ALL) degree you have received? Sex Assigned [...] visit Aesthetic Medicine and Juanita Vaz, Surgery TAXICAB DISPATCHER, C.N.P. [address] [place] [phone] (Charlotte rk) 09/08/2022 Comprehensive Visit Aesthetic Medicine Lucero Mckeon, Surgery MJayda, Ph.D. [address] [place] [address] (Charlotte bentley) documented as of [...] City/State/ZIP Code Phon e Number [facility] - [address] documented in this encounter Visit Diagnoses Diagnosis Osteopenia documented in this encounter Care Teams Mess Cook Relationship Specialty Start Date End Date Elsewhere, Pcp PCP - General Internal Medicine 07/03/17 documented as of this encounter
--- OUTSIDE RECORDS SUMMARY | 2022-07-30 20:37 | XMS_ITS | Encounter Summary ---
:1945 Author Organization [facility] Address [address] [place] [address] Care Team Providers Name Role Phone Elsewhere, Pcp Primary Care Provider Unavailable Encounter Details Date Type Department Care Team Description 06/08/2019 Hospital Encounter Department of Christine Gray Screen ing Mammogram Radiology in M, CLAUDIA, C.N.P., Average Ris k Patient Norma CobianN.Nancy [place] [address] [facility] [address] [place] [phone] [phone] Social History Tobacco Use Types Packs/Day Years [...] have completed or the highest Armando, MEd, CORD TIRE BUILDER, ALL) degree you have received? Sex Assigned [...] visit Aesthetic Medicine and Juanita Vaz, Surgery 3RD GRADE TEACHER, C.N.P. [address] [place] [address] (Wo rk) 09/08/2022 Comprehensive Visit Aesthetic Medicine Lucero Mckeon, Surgery MJayda, Ph.D. [address] [place] [phone] (Wo rk) documented as of this encounter [...] Imaging RST LOS, Breast Imaging ARZ LOS, [place] st Bilateral Mammography Imaging FLA LOS Specimen [...] Patient documented in this encounter Care Teams Director Park Relationship Specialty Start Date End Date Elsewhere, Pcp PCP - General Internal Medicine 07/03/17 documented as of this encounter
--- OUTSIDE RECORDS SUMMARY | 2022-07-30 20:37 | XMS_ITS | Encounter Summary ---
:1945 Author Organization [facility] Address [address] [place] [address] Care Team Providers Name Role Phone Elsewhere, Pcp Primary Care Provider Unavailable Reason for Visit Reason Onset Date Comments Pre-visit Testing Orders 03/22/2019 Encounter Details Date Type Department Care Team Description 03/22/2019 Clinical Section of Christine Gray Pre-visit Thuy [place]field Communication Preventive, M, MILK PICKUP TRUCK DRIVER, Orders Transportation and C.N.P., D.N.P . Occupational Medicine [address] [facility] in [facility] [phone] [place] [address] [place], [place] (Work) [phone] Social History Tobacco Use Types Packs/Day Years [...] or slept in a custodial (including now)? Sex Assigned at Date Recorded Female 07/26/2020 9:06 PM CDT documented as of this encounter Miscellaneous Notes Telephone Encounter - Denisha Mota Jody - 03/22/2019 9:12 AM CDT psc mammo documented in this encounter Plan of Treatment Upcoming Encounters Date Type Specialty Care Team Description 09/08/2022 Procedure visit Aesthetic Medicine and Juanita Vaz, Surgery MILK PICKUP TRUCK DRIVER, C.N.P. [address] [place] [phone] (Charlotte bentley) 09/08/2022 Comprehensive Visit Aesthetic Medicine and Lucero Pritchard, Surgery M.Norma, Ph.D. [address] [place] [phone] (Charlotte bentley) documented as of this encounter Results BI Breast Screening Bilateral with Tomosynthesis (06/08/2019 1:03 PM CDT) Anatomical Region Laterality Modality Breast, Breast Imaging RST LOS, Breast Imaging ARZ LOS, [place] st Bilateral Mammography Imaging FLA [facility] Specimen (Source) Anatomical Collection Method Collection Time [...] Patient documented in this encounter Care Teams Dress Cap Maker Relationship Specialty Start Date End Date Elsewhere, Pcp PCP - General Internal Medicine 07/03/17 documented as of this encounter
--- OUTSIDE RECORDS SUMMARY | 2022-07-30 20:37 | XMS_ITS | Encounter Summary ---
:1945 Author Organization [facility] Address [address] [place] [address] Care Team Providers Name Role Phone Elsewhere, Pcp Primary Care Provider Unavailable Encounter Details Date Type Department Care Team Description 05/18/2019 Diagnostic Department of [place], Loss Hearing Otorhinolaryngology in Clive Solano [place], [place] Emerald Harris.CAnaliCAnali-Gage Bilateral (Primary [address] [place] [address] [facility] [phone] [place] [address] Social History Tobacco Use Types [...] have completed or the highest Armando, MEd, PATROL DRIVER, ALL) degree you have received? Sex [...] on 04/27/2019. Hearing Aid Information Left Right [employer] Stitcher ReSXcell Medical Model Linx 3D 577 Linx 3D 577 Style BTE (jtfwst-nyu-ban) BTE (ycxyuy-eau-vou) Serial Number [id number] Battery Size 13 13 ? Coupling Custom earmold, PROPERTY SPECIALIST#5 Custom earmold, PROPERTY SPECIALIST#5 ? Warranty Date 05/12/2022 05/12/2022 Trial [...] stimulus was changed from ocean waves to [place]. Today she questioned the option of changing [...] visit Aesthetic Medicine and Juanita Vaz, Surgery APPRENTICE INSTRUMENT TECHNICIAN, C.N.P. [address] [place] [phone] (Charlotte bentley) 09/08/2022 Comprehensive Visit Aesthetic Medicine Lucero Mckeon, Surgery M.D., Ph.D. [address] [place] [phone] (Charlotte bentley) documented as of this encounter Visit Diagnoses Diagnosis Loss Hearing Sensorineural Bilateral - P rimary documented in this encounter Care Teams Property Management Intern Relationship Specialty Start Date End Date Elsewhere, Pcp PCP - General Internal Medicine 07/03/17 documented as of this encounter
--- OUTSIDE RECORDS SUMMARY | 2022-07-30 20:37 | XMS_ITS | Encounter Summary ---
:1945 Author Organization [facility] Address [address] [place] [address] Care Team Providers Name Role Phone Elsewhere, Pcp Primary Care Provider Unavailable Reason for Visit Reason Onset Date Comments Questions and request 03/20/2019 Encounter Details Date Type Department Care Team Description 03/20/2019 Clinical Communication Division of General Manisha Mead Questions and Internal Medicine Francesca Kaur request in [place], [facility] [address] [place], [place] [address] [place] [phone] [place], [place] [phone] (Work) [phone] Social History Tobacco Use Types Packs/Day Years [...] or slept in a snf (including now)? Sex Assigned at Date Recorded [...] initial evaluation in November 2018. Patient provided [facility] appointment number for triage. Dr. Mead will [...] visit Aesthetic Medicine and Juanita Vaz, Surgery CROWN ATTACHER, C.N.P. [address] [place] [address] (Wo rk) 09/08/2022 Comprehensive Visit Aesthetic Medicine and Lucero Pritchard Surgery Francesca, Ph.D. [address] [place] [address] (Wo rk) documented as of this encounter Visit Diagnoses Not on filedocumented in this encounter Care Teams Track Patrol Relationship Specialty Start Date End Date Elsewhere, Pcp PCP - General Internal Medicine 07/03/17 documented as of this encounter
--- OUTSIDE RECORDS SUMMARY | 2022-07-30 20:37 | XMS_ITS | Encounter Summary ---
:1945 Author Organization [facility] Address [address] [place] [address] Care Team Providers Name Role Phone Elsewhere, Pcp Primary Care Provider Unavailable Reason for Visit Outpatient (Routine) - Closed Specialty Diagnoses / Procedures Referred By Contact Refer red To Contact Vascular Medicine Diagnoses Varicose Vein Lower Extremity Bilateral Varicose Vein Lower Extremity With Pain Bilateral Michele Mello R[place] ester Region M.D. [address] [place] [phone] Referral ID Status Reason Start Date Expiration Date Visits Requ ested Visits Authorized [id number] Closed 12/01/2018 12/01/2019 1 1 Encounter Details Date Type Department Care Team Description 02/16/2019 Comprehensive Visit Department of Juanita Vaz Varic ose Vein Lower Extremity With Pain Bilateral (Primary Dx); Vascular Medicine R, RENTAL SALES ASSOCIATE, C.N.P . Varicose Vein Lower Extremity Bilateral in [address] [place] [phone] [place], [place] [phone] (Work) [phone] Social History Tobacco Use Types Packs/Day Years [...] in this encounter Consult Notes Juanita Vaz, RENTAL SALES ASSOCIATE, C.N.P. - 02/16/2019 9:00 AM CDT REFERRAL SOURCE Michele Mello M.D. [address] [place] [phone] SUBJECTIVE CHIEF COMPLAINT / REASON FOR VISIT [...] Aesthetic Juanita Weeks, Surgery CLAUDIA, C.N.P. [address] [place] [phone] (Charlotte bentley) 09/08/2022 Comprehensive Visit Lucero Cervantes, Surgery MJayda, Ph.D. [address] [place] [phone] (Charlotte bentley) documented as of this encounter Results Sclerotherapy (11/07/2019 3:00 PM LACE AND TEXTILES RESTORER) Narrative MMODAL - 11/07/2019 3:00 PM LACE AND TEXTILES RESTORER Juanita Vaz, RENTAL SALES ASSOCIATE, C.N.P. ? 11/07/2019 ??4:52 PM Proceduralist: ??JOSHUA [...] of legs were obtained after consent using [facility] approved and s Streetline device and loaded to patient's medical record. [...] Number of injections: ??Approximately 50 -75 injections [place] used: 30 gauge Complications: ??No apparent complicatio [...] MMODAL MMODAL NA Sclerotherapy (09/11/2019 1:00 PM LACE AND TEXTILES RESTORER) Narrative MMODAL - 09/11/2019 1:00 PM LACE AND TEXTILES RESTORER Juanita Vaz APRN C.N.P. ? 09/11/2019 ??6:19 [...] of legs were obtained after consent using [facility] approved and s ecure device and loaded [...] Number of injections: ??Approximately 50 -75 injections [place] used: 30 gauge Complications: ??No apparent complicatio [...] of legs were obtained after consent using [facility] approved and s Streetline device and loaded to patient's medical record. [...] 30 -50 injections to bilateral lower extremities [place] used: 30 gauge Complications: ??No apparent complicatio [...] Bilateral documented in this encounter Care Teams Exchange Administrator Relationship Specialty Start Date End Date Elsewhere, Pcp PCP - General Internal Medicine 07/03/17 documented as of this encounter
--- OUTSIDE RECORDS SUMMARY | 2022-07-30 20:37 | XMS_ITS | Encounter Summary ---
:1945 Author Organization [facility] Address [address] [place] [address] Care Team Providers Name Role Phone Elsewhere, Pcp Primary Care Provider Unavailable Encounter Details Date Type Department Care Team Description 07/06/2019 Procedure visit Department of Juanita Vaz Varicose Vein Lower Vascular Medicine in R, SALES OPERATIONS SPECIALIST, C. N.P. Extremity With Pain [place], [place] [address] [facility] Bilateral [address] [place] [phone] [phone] Social History Tobacco Use Types Packs/Day Years [...] have completed or the highest Armando, MEd, FISH PROCESSOR, ALL) degree you have received? Sex Assigned [...] Approximately 30-50 injections to bilateral lower extremities [place] used: 30 gauge Complications: No apparent complications [...] and Juanita Vaz, Surgery CLAUDIA, C.N.P. [address] [place] [phone] (Wo mc) 09/08/2022 Comprehensive Visit Aesthetic Medicine and Lucero Pritchard, Surgery Francesca, Ph.D. [address] [place] [phone] (Charlotte bentley) documented as of this encounter [...] [facility] approved and s [place] device and loaded to patient's medical record. [...] 30 -50 injections to bilateral lower extremities [place] used: 30 gauge Complications: ??No apparent complicatio [...] Bilateral documented in this encounter Care Teams Water Sander Relationship Specialty Start Date End Date Elsewhere, Pcp PCP - General Internal Medicine 07/03/17 documented as of this encounter
--- OUTSIDE RECORDS SUMMARY | 2022-07-30 20:37 | XMS_ITS | Encounter Summary ---
:1945 Author Organization [facility] Address [address] [place] [address] Care Team Providers Name Role Phone Elsewhere, Pcp Primary Care Provider Unavailable Encounter Details Date Type Department Care Team Description 05/30/2019 Diagnostic Department of [place], Loss Hearing Otorhinolaryngology in Clvie Solano [place], [place] Efrain HarrisCAnaliCAnali-Gage Bilateral (Primary [address] [place] [address] [facility] [phone] [place] [address] Social History Tobacco Use Types [...] have completed or the highest Armando, Cora, HOUSING SPECIALIST, ALL) degree you have received? Sex Assigned at Date Recorded Female 07/26/2020 9:06 PM CDT documented as of this encounter Progress Notes Екатерина Echeverria Au.D. - 05/30/2019 8:30 AM CDT SUBJECTIVE REFERRAL: Self. CHIEF COMPLAINT / [...] on 04/27/2019. Hearing Aid Information Left Right Supervisor Tower ReSFive Cool ReSFive Cool Model Linx 3D 577 Linx 3D 577 Style BTE (xgzyli-iip-osr) BTE (jgwosq-jsa-mij) Serial Number [id number] Battery Size 13 13 ? Coupling Custom earmold, PANEL EDGE PAINTER#5 Custom earmold, PANEL EDGE PAINTER#5 ? Warranty Date 05/12/2022 05/12/2022 Trial Period End Date 06/12/2019 Ms. Sheikh reports she has been wearing her hearing aids. She notes she is using the tinnitus stimulus as needed. She notes an improvement in sound quality when listening to music and tv. Today she requests we increase the sound from the left ear tinnitus sound generator. ASSESSMENT/PLAN Today we trialed several sound stimulus options, but returned back to [facility] with a preference toward more stimulus from the left than the right. Datalogging indicates approximately 20% of the time she is using the tinnitus functionality, but total use hours continue to average out to only a few hours a day. #1 Loss Hearing Sensorineural Bilateral documented in this encounter Plan of Treatment Upcoming Encounters Date Type Specialty Care Team Description 09/08/2022 Procedure visit Aesthetic Medicine and Juanita Vaz, Surgery CHIEF ENGINEER'S HELPER, C.N.P. [address] [place] [phone] (Wo rk) 09/08/2022 Comprehensive Visit Aesthetic Medicine Lucero Mckeon, Surgery MJayda, Ph.D. [address] [place] [phone] (Wo rk) documented as of this encounter Visit Diagnoses Diagnosis Loss Hearing Sensorineural Bilateral - P rimary documented in this encounter Care Teams Spanish Lecturer Relationship Specialty Start Date End Date Elsewhere, Pcp PCP - General Internal Medicine 07/03/17 documented as of this encounter
--- OUTSIDE RECORDS SUMMARY | 2022-07-30 20:37 | XMS_ITS | Encounter Summary ---
:1945 Author Organization [facility] Address [address] [place] [address] Care Team Providers Name Role Phone Elsewhere, Pcp Primary Care Provider Unavailable Reason for Visit Outpatient (Routine) - Closed Specialty Diagnoses / Procedures Referred By Contact Refer red To Contact Diagnoses Screening Examination Skin Cancer Manisha Mead M.D. [facility] [address] [place] [phone] Referral ID Status Reason Start Date Expiration Date Visits Requ ested Visits Authorized [id number] Closed 09/06/2018 09/06/2019 1 1 Encounter Details Date Type Department Care Team Description 12/01/2018 Comprehensive Visit Department of Sheyla Schroeder is Seborrheic (Primary Dx); Dermatology in [facility], Screening Exa mination Skin Cancer; [facility], C.N.P., Onychomycosis [place] D.N.P. 200 [facility] 200 [place] [phone] Social History Tobacco Use Types Packs/Day Years [...] More than 4 times per year 01/28/2021 scientologist services? Do you belong to any clubs [...] encouraged her to use camouflage with toenail tamazight if the toenail is bothersome to her [...] patient/guardian of patient expressed understanding of thecontent. HAT FLANGER documented in this encounter Plan of Treatment Upcoming Encounters Date Type Specialty Care Team Description 09/08/2022 Procedure visit Aesthetic Medicine and Juanita Vaz, Surgery CLIENT PORTFOLIO MANAGER, C.N.P. [address] [place] [phone] (Charlotte bentley) 09/08/2022 Comprehensive Visit Aesthetic Medicine and Lucero Pritchard, Surgery MJayda, Ph.D. [address] [place] [phone] (Charlotte bentley) documented as of this encounter Visit Diagnoses Diagnosis Keratosis Seborrheic - Primary Screening Examination Skin Cancer Onychomycosis documented in this encounter Care Teams Route Sales Driver Relationship Specialty Start Date End Date Elsewhere, Pcp PCP - General Internal Medicine 07/03/17 documented as of this encounter
--- OUTSIDE RECORDS SUMMARY | 2022-07-30 20:37 | XMS_ITS | Encounter Summary ---
:1945 Author Organization [facility] Address [address] [place] [address] Care Team Providers Name Role Phone Elsewhere, Pcp Primary Care Provider Unavailable Encounter Details Date Type Department Care Team Description 06/14/2019 Clinical Communication Menopause and Women's Helena Villarreal, [facility] D.O., M.P.H . in [address] [place] [phone] [place], [place] [phone] (Work) [phone] Social History Tobacco Use Types Packs/Day Years [...] completed or the highest Armando, MEd, TECHNICAL SALES MANAGER, ALL) degree you have received? Sex Assigned at Date Recorded Female 07/26/2020 9:06 PM CDT documented as of this encounter Plan of Treatment Upcoming Encounters Date Type Specialty Care Team Description 09/08/2022 Procedure visit Aesthetic Medicine and Juanita Vaz, Surgery MANAGER SECONDARY, C.N.P. [address] [place] [phone] (Wo rk) 09/08/2022 Comprehensive Visit Aesthetic Medicine and Lucero Pritchard, Surgery M.DAnali, Ph.D. [address] [place] [phone] (Wo rk) documented as of this encounter Visit Diagnoses Not on filedocumented in this encounter Care Teams Porcelain Mixer Relationship Specialty Start Date End Date Elsewhere, Pcp PCP - General Internal Medicine 07/03/17 documented as of this encounter
--- OUTSIDE RECORDS SUMMARY | 2022-07-30 20:37 | XMS_ITS | Encounter Summary ---
:1945 Author Organization [facility] Address [address] [place] [address] Care Team Providers Name Role Phone Elsewhere, Pcp Primary Care Provider Unavailable Reason for Visit Reason Comments Patient Education Appointment Request (Routine) - Closed Specialty Diagnoses / Procedures Referred By Contact Refer red To Contact Patient Education Referral ID Status Reason Start Date Expiration Date Visits Requ ested Visits Authorized [id number] Closed 03/31/2019 03/30/2020 1 1 Encounter Details Date Type Department Care Team Description 03/31/2019 Education Department of Patient Bj Pichardo Education in [place], [address] [place], [place] [address] [facility] [address] [place] [address] [phone] Social History Tobacco Use Types Packs/Day Years [...] have completed or the highest Armando, MEd, SUBSTATION OPERATOR APPRENTICE, ALL) degree you have received? Sex Assigned at Date Recorded Female 07/26/2020 9:06 PM CDT documented as of this encounter Plan of Treatment Upcoming Encounters Date Type Specialty Care Team Description 09/08/2022 Procedure visit Aesthetic Medicine and Juanita Vaz, Surgery HEALTH NAVIGATOR, C.N.P. [address] [place] [phone] (Charlotte bentley) 09/08/2022 Comprehensive Visit Aesthetic Medicine Lucero Mckeon, Surgery M.D., Ph.D. [address] [place] [phone] (Charlotte bentley) documented as of this encounter Visit Diagnoses Not on filedocumented in this encounter Care Teams Commanding Officer Garage Relationship Specialty Start Date End Date Elsewhere, Pcp PCP - General Internal Medicine 07/03/17 documented as of this encounter
--- OUTSIDE RECORDS SUMMARY | 2022-07-30 20:37 | XMS_ITS | Encounter Summary ---
:1945 Author Organization [facility] Address [address] [place] [address] Care Team Providers Name Role Phone Elsewhere, Pcp Primary Care Provider Unavailable Encounter Details Date Type Department Care Team Description 06/29/2019 Diagnostic Department of [place], Tinnitus Bilat eral (Primary Dx); Otorhinolaryngology in [place] L, Loss Hearing Sensorineural Asymmetrical [place], [place] Steven, C.C.C.-A [address] [facility] [address] [place] [address] [facility] [phone] [place] [address] Social History Tobacco Use Types [...] have completed or the highest Armando, MEd, BIOLOGY ADJUNCT INSTRUCTOR, ALL) degree you have received? Sex Assigned [...] amplification on??04/27/2019. Hearing Aid Information Left Right Dental Cream Maker esolidar Model Linx 3D 577 Linx 3D 577 Style BTE (lahxbb-onj-npw) BTE (pmueoa-pzi-aek) Serial Number [id number] Battery Size 13 13 ? Coupling Custom earmold, PUBLIC WORKS MANAGER#5 Custom earmold, PUBLIC WORKS MANAGER#5 ? Warranty Date 05/12/2022 05/12/2022 Trial [...] remake earmold will be ordered from the fire official. ?? Recommended return visit in three weeks. ?? #1 tinnitus bilateral #2 Hearing loss sensorineural asymmetrical documented in this encounter Plan of Treatment Upcoming Encounters Date Type Specialty Care Team Description 09/08/2022 Procedure visit Aesthetic Medicine and Juanita Vaz, Surgery HEMODIALYSIS PATIENT CARE SPECIALIST, C.N.P. [address] [place] [phone] (Charlotte bentley) 09/08/2022 Comprehensive Visit Aesthetic Medicine Lucero Mckeon, Surgery Francesca, Ph.D. [address] [place] [phone] (Charlotte rk) documented as of this encounter Visit Diagnoses Diagnosis Tinnitus Bilateral - Primary Loss Hearing Sensorineural Asymmetrical documented in this encounter Care Teams Outboard Motors Experimental Mechanic Relationship Specialty Start Date End Date Elsewhere, Pcp PCP - General Internal Medicine 07/03/17 documented as of this encounter
--- OUTSIDE RECORDS SUMMARY | 2022-07-30 20:37 | XMS_ITS | Encounter Summary ---
:1945 Author Organization [facility] Address [address] [place] [address] Care Team Providers Name Role Phone Elsewhere, Pcp Primary Care Provider Unavailable Encounter Details Date Type Department Care Team Description 02/16/2019 Hospital Encounter Department of Manisha Mead Bilateral Radiology, Diogo Kaur M.D. [place], in [address] [place] [phone] [place], [place] [phone] (Work) [phone] Social History Tobacco Use Types Packs/Day Years [...] Aesthetic Medicine and Juanita Vaz, Surgery SOFTWARE DEVELOPER INTERN, C.N.P. [address] [place] [phone] (Charlotte bentley) 09/08/2022 Comprehensive Visit Aesthetic Medicine and Lucero Pritchard Surgery MJayda, Ph.D. [address] [place] [phone] (Charlotte bentley) documented as of this encounter [...] Neuroradiology BRII N/A Magnetic Resonance LOS, Neuroradiology [facility] Specimen (Source) Anatomical Collection Method Collection [...] POCT ORDERABLES - DEVICE Performing Organization Address [facility] Phon e Number POC [facility] 200 [place] [address] Creatinine, POCT (02/16/2019 11:22 AM CDT) P athologist Signature eGFR-Black/Afr >90 >=60 02/16/2019 POC RST ican Greenlandic, mL/min/BSA 11:25 AM CDT [facility] POCT OUTPATIENT LABS Comment: ----ADDITIONAL INFORMATION---- Estimated GFR calculated using the 2009 CKD_EPI creatinine equation. eGFR Non-Black/ 87 >=60 mL/min/BSA 02/16/2019 11:25 POC RST [facility] Greenlandic, POCT AM CDT OUTPATIENT LABS Comment: ----ADDITIONAL INFORMATION---- Estimated GFR calculated using the 2009 CKD_EPI creatinine equation. Specimen Anatomical Collection Method Collection Time Receive d Time (Source) Location / / Volume Laterality Blood 02/16/2019 11:22 02/16/2019 AM CDT 11:25 AM CDT Unknown Provider LAB POCT ORDERABLES - DEVICE Performing Organization Address [facility] Phon e Number POC RST [facility] OUTPATIENT 200 [place], [place] [address] LABS documented in this [...] Guidelines documented in this encounter Care Teams Directory Compiler Relationship Specialty Start Date End Date Elsewhere, Pcp PCP - General Internal Medicine 07/03/17 documented as of this encounter
--- OUTSIDE RECORDS SUMMARY | 2022-07-30 20:38 | XMS_ITS | Encounter Summary ---
:1945 Author Organization [facility] Address [address] [place] [address] Care Team Providers Name Role Phone Elsewhere, Pcp Primary Care Provider Unavailable Reason for Visit Reason Comments Immunizations Encounter Details Date Type Department Care Team Description 06/03/2018 Nurse Only Section of Preventive, Christine Gray, Immunizations Transportation and SUPERVISORY EXAMINER, C.N.P., D.N.P. Occupational Medicine in [address] [place] [address] [place] [phone] [place] [address] [phone] Social History Tobacco Use Types Packs/Day Years [...] visit Aesthetic Medicine and Juanita Vaz, Surgery SUPERVISORY EXAMINER, C.N.P. [address] [place] [phone] (Charlotte rk) 09/08/2022 Comprehensive Visit Aesthetic Medicine Lucero Mckeon, Surgery MAnaliDAnali, Ph.D. [address] [place] [phone] (Charlotte rk) documented as of this encounter Visit Diagnoses Not on filedocumented in this encounter Care Teams Pipe Jeeper Relationship Specialty Start Date End Date Elsewhere, Pcp PCP - General Internal Medicine 07/03/17 documented as of this encounter
--- OUTSIDE RECORDS SUMMARY | 2022-07-30 20:38 | XMS_ITS | Encounter Summary ---
:1945 Author Organization [facility] Address [address] [place] [address] Care Team Providers Name Role Phone Elsewhere, Pcp Primary Care Provider Unavailable Encounter Details Date Type Department Care Team Description 05/06/2018 Surgery Outpatient Procedure Jolene-Christofer, Op erative HYSTEROSCOPY. Center in [place], Kaleigh Pulliam M.D. [place] [address] [place] [address] [address] [place] [phone] [phone] Social History Tobacco Use Types Packs/Day Years [...] CINNAMON Take 2 tablets by 0 019 GONO-TJIXJMAQ-DPT ORAL mouth daily. garlic tablet Take 1 tablet by 0 05/24/201511/30 mouth 3 (three) times a day. tricia root (TRICIA Take 1 capsule by 0 5 11/30/2018 EXTRACT ORAL) mouth 3 (three) times a day. glucosamine/msm/csa/mega/h Take 1 tablet by 0 05/0511/30/2018 rb115 mouth 2 (two) times ([id number]-EPQMZ-HEF-MEGA a day. -115HC ORAL) hydrocortisone Insert 1 [...] mg 0 11/30/2018 powder UNABLE TO FIND [facility] 200mg 0 08/05 valacyclovir HCl (VALTREX Take [...] visit Aesthetic Medicine and Juanita Vaz, Surgery BUSINESS CENTER MANAGER, C.N.P. [address] [place] [phone] (Wo rk) 09/08/2022 Comprehensive Visit Aesthetic Medicine Lucero Mckeon, Surgery M.D., Ph.D. [address] [place] [phone] (Wo rk) documented as of this encounter [...] Component Value Ref Test Analysis Performed At [facility] Range Method Time Signature Gross Description A. ??Received fresh labeled with patient name, alanna hdez 05/12/2018 [facility] number and labeled as uterine contents is a 0.5 x 0.4 x 2:22 PM LABORATORIES - 0.2 cm aggregate of hemorrhagic irregular tissue fragments . [facility] All submitted for permanent sections only. Grossed by ELIM [id number]. Report Frankie Do M.D. [phone] [facility] electronically I verify that I have examined all relevant slides/ma terials 2:22 PM LABORATORIES - signed by for the specimen(s) and rendered or confirmed the diagnosi s. [facility] 05/12/2018 [facility] 2:22 PM LABORATORIES - [facility] Block Summary A Uterine contents 05/12/2018 [place] [facility] LINIC A1 Uteriine contents 2:22 PM LABORATOR IES - [facility] Interpretation FINAL DIAGNOSIS 05/12/2018 [place] CLI MUKUL A. ??Uterine contents, curettage: ??Scant fragments of live ign 2:22 PM LABORATORIES - squamous epithelium and degenerated endometrium. CDT [facility] Specimen (Source) Anatomical Collection Method Collection Time Re ceived Time Location / / Volume Laterality Tissue (Uterus) 05/06/2018 9:54 AM CDT Narrative This result has an attachment that is no t available. Kaleigh Francois M.D. LAB SURG PATH ORDERABL ES Performing Organization Address City/State/ZIP Code Phon e Number [facility] LABORATORIES - [address] [place], [place] [address] [facility] documented in this encounter Visit [...] injection documented in this encounter Care Teams Spike Maker Relationship Specialty Start Date End Date Elsewhere, Pcp PCP - General Internal Medicine 07/03/17 documented as of this encounter
--- OUTSIDE RECORDS SUMMARY | 2022-07-30 20:38 | XMS_ITS | Encounter Summary ---
:[address] [facility] Address [address] [place] [address] Care Team Providers Name Role Phone Elsewhere, Pcp Primary Care Provider Unavailable Encounter Details Date Type Department Care Team Description 12/01/2018 Hospital Encounter Department of Manisha Mead Varicose Vein Lower Vascular Medicine in Ej Kaur Extremity Bilateral [place], [place] [address] [facility] 200 [place] [address] [phone] Social History Tobacco Use Types Packs/Day Years [...] or slept in a penitentiary (including now)? Sex Assigned at Date Recorded [...] visit Aesthetic Medicine and Juanita Vaz, Surgery DIGITAL MEDIA SALES CONSULTANT, C.N.P. [address] [place] [phone] (Charlotte bentley) 09/08/2022 Comprehensive Visit Aesthetic Medicine and Lucero Pritchard, Surgery MJayda, Ph.D. [address] [place] [phone] (Charlotte bentley) documented as of this encounter Procedures Procedure Name Priority Date/Time Associated Comments Diagnosis VENOUS LOWER Routine 12/01/2018 10:30 Varicose Vein Lower Resu lts for this EXTREMITY - AM HUMAN RESOURCE MANAGER Extremity Bilateral procedur e are in HEMODYNAMIC STUDY the result s section. documented in this encounter Results Venous Lower Extremity - Hemodynamic Study (12/01/2018 10:30 AM HUMAN RESOURCE MANAGER) Anatomical Region Laterality Modality Other Specimen (Source) Anatomical Collection Method Collection Time Re ceived Time Location / / Volume Laterality 12/01/2018 10:09 AM HUMAN RESOURCE MANAGER Narrative 12/01/2018 10:09 AM HUMAN RESOURCE MANAGER Right: OUTFLOW PLETHYSMOGRAPHY: ? Patent venous outflow. [...] Bilateral documented in this encounter Care Teams Dance Master Relationship Specialty Start Date End Date Elsewhere, Pcp PCP - General Internal Medicine 07/03/17 documented as of this encounter
--- OUTSIDE RECORDS SUMMARY | 2022-07-30 20:38 | XMS_ITS | Encounter Summary ---
:1945 Author Organization [facility] Address [address] [place] [address] Care Team Providers Name Role Phone Elsewhere, Pcp Primary Care Provider Unavailable Reason for Referral Outpatient (Routine) - Closed Specialty Diagnoses / Procedures Referred By Contact Refer red To Contact Vascular Medicine Diagnoses Varicose Vein Lower Extremity Bilateral Varicose Vein Lower Extremity With Pain Bilateral Michele Mello Roch ester Region M.D. [address] [place] [phone] Referral ID Status Reason Start Date Expiration Date Visits Requ ested Visits Authorized [id number] Closed 12/01/2018 12/01/2019 1 1 ER IN Reason for Visit Outpatient (Routine) - Closed Specialty Diagnoses / Procedures Referred By Contact Refer red To Contact Vascular Medicine Diagnoses Varicose Vein Lower Extremity Bilateral Manisha Mead M.D. [facility] [address] [place] [phone] Referral ID Status Reason Start Date Expiration Date Visits Requ ested Visits Authorized [id number] Closed 09/06/2018 09/06/2019 1 1 Encounter Details Date Type Department Care Team Description 12/01/2018 Comprehensive Visit Division of Vascular Re Mello Varicose Vein Lower Extremity With Pain Bilateral (Primary Dx); and Rahul Corbin M.D. Varicose Vein Lower Extremity Bilateral Surgery in [address] [place] [address] [place] [phone] [place], [place] [phone] (Work) [phone] Social History Tobacco Use Types Packs/Day Years [...] (145 lb 11.6 oz) 12/01/2018 3:31 PM PUTTER IN Height - - Body Mass Index 23.7 11/30/2018 12:53 PM PUTTER IN documented in this encounter Consult Notes Michele [...] Extremity With Pain Bilateral Michele Mello M.D. ER [place] documented in this encounter Plan of Treatment Upcoming Encounters Date Type Specialty Care Team Description 09/08/2022 Procedure visit Aesthetic Medicine and Juanita Vaz, Surgery TRAIN MASTER, C.N.P. [address] [place] [phone] (Charlotte rk) 09/08/2022 Comprehensive Visit Aesthetic Medicine and Lucero Pritchard, Surgery M.DAnali, Ph.D. [address] [place] [phone] (Charlotte bentley) Scheduled Referrals Name Type Priority Associated Diagnoses Order S [facility] Vascular Medicine Outpatient Referral Routine Varicose Vein Lo wer Expected: - Venous / Extremity Bilate ral 12/01/2018 varicose Varicose Vein Lower (Approxi mate), vein/sclero Extremity With Pain Expires: consult (clinic) Bilateral 12/01/2021 documented as of this encounter Visit Diagnoses Diagnosis Varicose Vein Lower Extremity With Pain Bilateral - Primary Varicose Vein Lower Extremity Bilateral documented in this encounter Care Teams Tester Rocket Engine Relationship Specialty Start Date End Date Elsewhere, Pcp PCP - General Internal Medicine 07/03/17 documented as of this encounter
--- OUTSIDE RECORDS SUMMARY | 2022-07-30 20:38 | XMS_ITS | Encounter Summary ---
:1945 Author Organization [facility] Address [address] [place] [address] Care Team Providers Name Role Phone Elsewhere, Pcp Primary Care Provider Unavailable Encounter Details Date Type Department Care Team Description 06/16/2018 Clinical Communication Department of Qi Scott Cardiovascular Medicine Francesca in [facility] [address] [facility] [address] [place] [phone] Social History Tobacco Use Types Packs/Day Years [...] visit Aesthetic Medicine and Juanita Vaz, Surgery DRYING MACHINE OPERATOR, C.N.P. [address] [place] [address] (Wo rk) 09/08/2022 Comprehensive Visit Aesthetic Medicine and Lucero Pritchard, Surgery MJayda, Ph.D. [address] [place] [address] (Wo rk) documented as of this encounter Visit Diagnoses Not on filedocumented in this encounter Care Teams Distribution District Supervisor Relationship Specialty Start Date End Date Elsewhere, Pcp PCP - General Internal Medicine 07/03/17 documented as of this encounter
--- OUTSIDE RECORDS SUMMARY | 2022-07-30 20:38 | XMS_ITS | Encounter Summary ---
:[address] [facility] Address [address] [place] [address] Care Team Providers Name Role Phone Elsewhere, Pcp Primary Care Provider Unavailable Encounter Details Date Type Department Care Team Description 12/01/2018 Hospital Encounter Department of Manisha Mead Varicose Vein Lower Radiology, Marino Kaur M.D. Extremity Bilateral Building, in [address] [place] [address] [place] [phone] [place], [place] [phone] (Work) [phone] Social History Tobacco Use Types Packs/Day Years [...] visit Aesthetic Medicine and Juanita Vaz, Surgery BREAKER OFF, C.N.P. [address] [place] [phone] (Charlotte bentley) 09/08/2022 Comprehensive Visit Aesthetic Medicine Lucero Mckeon, Surgery M.D., Ph.D. [address] [place] [phone] (Charlotte bentley) documented as of this encounter Procedures Procedure Name Priority Date/Time Associated Comments Diagnosis US LOWER EXTREMITY RAD - Routine 12/01/2018 9:32 Varicose Vein Resu lts for VENOUS INSUFFICIENCY (most inpatients AM JANITORIAL TECH Lower Extremity this procedure BILATERAL and all Bilateral are in the outpatients) results section. documented in this encounter Results US Lower Extremity Venous Insufficiency Bilateral (12/01/2018 9:32 AM JANITORIAL TECH) Anatomical Region Laterality Modality Lower Extremity, Ultrasound RST LOS, Ultrasound ARZ LOS, Santosh ateral Ultrasound Ultrasound FLA LOS Specimen (Source) Anatomical Collection Method Collection Time Re ceived Time Location / / Volume Laterality 12/01/2018 9:32 AM JANITORIAL TECH Impressions 12/01/2018 10:13 AM JANITORIAL TECH IMPRESSION: ??Varicosities and insufficiency in the bilateral lower extremities. Please see the findings for a detailed r eport. Narrative 12/01/2018 10:13 AM JANITORIAL TECH EXAM: ??US LOWER EXTREMITY VENOUS INSUFFICIENCY BILATERAL Exam performed with color and spectral D oppler analysis. COMPARISON: ??None. FINDINGS: RIGHT: The deep veins are patent without thromb us. 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 The SSV is moderately incompetent with v aricosities in the upper calf. A large (0.4 cm) incompetent deep accountant clerk pos terior to the knee gives rise [...] calf. A large (0.4 cm) incompetent deep accountant clerk pos terior to the knee gives rise [...] Bilateral documented in this encounter Care Teams Brim Rounder Relationship Specialty Start Date End Date Elsewhere, Pcp PCP - General Internal Medicine 07/03/17 documented as of this encounter
--- OUTSIDE RECORDS SUMMARY | 2022-07-30 20:38 | XMS_ITS | Encounter Summary ---
:1945 Author Organization [facility] Address [address] [place] [address] Care Team Providers Name Role Phone Elsewhere, Pcp Primary Care Provider Unavailable Reason for Visit Reason Comments Other New Bone Outpatient (Routine) - Closed Specialty Diagnoses / Referred By Contact Referred To Contact Procedures Reproductive Diagnoses Osteopenia Christine Gray, [facility] Endocrinology and CASINO ENFORCEMENT AGENT, C.N.P., Infertility / D.N.P. Endocrinology [address] [place] [address] Referral ID Status Reason Start Date Expiration Date Visits Requ ested Visits Authorized [id number] Closed 06/03/2018 06/03/2019 1 1 Encounter Details Date Type Department Care Team Description 08/29/2018 Comprehensive Visit Division of Endocrinology Merrill Tubbs M.D. [address] [place] [phone] [facility] Phyllis Senior M.D. [address] [place] [phone] Social History Tobacco Use Types Packs/Day [...] Comments Blood Pressure 136/80 08/29/2018 1:02 PM BARGE PILOT Pulse 65 08/29/2018 1:02 PM BARGE PILOT Temperature - - Respiratory Rate - - Oxygen Saturation - - Inhaled Oxygen Concentration - - Weight 68.3 kg (150 lb 9.2 oz) 08/29/2018 1:02 PM BARGE PILOT Height 167.7 cm (5' 6.02) 08/29/2018 1:02 PM BARGE PILOT Body Mass Index 24.29 08/29/2018 1:02 PM BARGE PILOT documented in this encounter H&P Notes Phyllis Galicia M.D. - 08/29/2018 1:30 PM CST [facility] Endocrinology, Diabetes, Metabolism and Nutrition Bone/Osteoporosis Clinic Date of Visit: 08/29/2018 Supervising process consultant: Dr. Harris Chief Complaint: Osteopenia History of Present Illness Yamileth Sheikh is a 73 y.o. female who presents for evaluation of osteopenia. Briefly, she has had decreased T-scores on DEXA scan as far back as 2007 (-1.3 at L1/2) based on [facility] review. Notably, she has had a right [...] affected areas and surrounding skin ??? CINNAMON MPVH-URXSSHEW-OSD ORAL Take 2 tablets by mouth daily. [...] mouth 3 (three) times a day. ??? glucosamine/msm/csa/ashlyn/wrz587 ([id number]-QQJMD-OGE-ASHLYN-115HC ORAL) Take 1 tablet by mouth 2 [...] mass appropriate for age and gender. Hand bird trapper normal. Neuro: Balance normal. Able to walk [...] considered. Phyllis Galicia, PGY1 3:07 PM, 08/29/18 E PILOT documented in this encounter Consult Notes Merrill [...] in [address] Job ID: [id number] E PILOT documented in this encounter Plan of Treatment Upcoming Encounters Date Type Specialty Care Team Description 09/08/2022 Procedure visit Aesthetic Medicine and Juanita Vaz, Surgery CASINO ENFORCEMENT AGENT, C.N.P. [address] [place] [phone] (Charlotte bentley) 09/08/2022 Comprehensive Visit Aesthetic Medicine and Lucero Pritchard, Surgery Francesca, Ph.D. [address] [place] [phone] (Charlotte bentley) documented as of this encounter Visit Diagnoses Diagnosis Osteopenia documented in this encounter Care Teams Block Mechanic Relationship Specialty Start Date End Date Elsewhere, Pcp PCP - General Internal Medicine 07/03/17 documented as of this encounter
--- OUTSIDE RECORDS SUMMARY | 2022-07-30 20:38 | XMS_ITS | Encounter Summary ---
:1945 Author Organization [facility] Address [address] [place] [address] Care Team Providers Name Role Phone Elsewhere, Pcp Primary Care Provider Unavailable Reason for Visit Appointment Request (Routine) - Closed Specialty Diagnoses / Procedures Referred By Contact Refer red To Contact General Internal Medicine Referral ID Status Reason Start Date Expiration Date Visits Requ ested Visits Authorized [id number] Closed 08/11/2018 08/11/2019 1 Encounter Details Date Type Department Care Team Description 11/30/2018 Comprehensive Visit Division of Manisha Maldonado Vein Lower Extremity With Pain Bilateral (Primary Dx); Internal Medicine in Ej Kaur Hypertension Essential Primary; [place], [place] [address] [facility] Osteopenia; [address] [place], [place] Hyperlipidemia; [place] [address] Hemorrhoids; [phone] Tinnitus Bilateral Social History Tobacco Use Types [...] Comments Blood Pressure 118/81 11/30/2018 12:53 PM HUNTING SALES LEADER Pulse 69 11/30/2018 12:53 PM HUNTING SALES LEADER Temperature - - Respiratory Rate - - Oxygen Saturation - - Inhaled Oxygen Concentration - - Weight 65.5 kg (144 lb 6.4 oz) 11/30/2018 12:53 PM HUNTING SALES LEADER Height 167 cm (5' 5.75) 11/30/2018 12:53 PM HUNTING SALES LEADER Body Mass Index 23.49 11/30/2018 12:53 PM HUNTING SALES LEADER documented in this encounter H&P Notes Manisha [...] remote history of hemorrhoid banding at the [facility]. 3. Hyperlipidemia She has moderate hyperlipidemia being [...] a moist towel at. She can use avwz-szt-tpjhicd hemorrhoid medication or 1% hydrocortisone to try [...] blood/lymph issues: Yes No urinary/reproductive issues: Yes ING SALES LEADER documented in this encounter Plan of Treatment Upcoming Encounters Date Type Specialty Care Team Description 09/08/2022 Procedure visit Aesthetic Medicine and Juanita Vaz, Surgery GAS COMBUSTION ENGINEER, C.N.P. [address] [place] [phone] (Charlotte bentley) 09/08/2022 Comprehensive Visit Aesthetic Medicine Lucero Mckeon, Surgery MJayda, Ph.D. [address] [place] [phone] (Charlotte bentley) documented as of this encounter Visit Diagnoses Diagnosis Varicose Vein Lower Extremity With Pain Bilateral - Primary Hypertension Essential Primary Osteopenia Hyperlipidemia Hemorrhoids Tinnitus Bilateral documented in this encounter Care Teams Partner Relationship Specialty Start Date End Date Elsewhere, Pcp PCP - General Internal Medicine 07/03/17 documented as of this encounter
--- OUTSIDE RECORDS SUMMARY | 2022-07-30 20:38 | XMS_ITS | Encounter Summary ---
:1945 Author Organization [facility] Address [address] [place] [address] Care Team Providers Name Role Phone Elsewhere, Pcp Primary Care Provider Unavailable Encounter Details Date Type Department Care Team Description 06/21/2018 Hospital Encounter Department of Qi Scott Regurg itation [facility], in [address] [place] [address] [place], [place] [phone] (Work) [phone] Social History Tobacco Use Types Packs/Day Years [...] CINNAMON Take 2 tablets by 0 019 RYXB-FFHYCXQZ-PDO ORAL mouth daily. garlic tablet Take 1 tablet by 0 05/24/201511/30 mouth 3 (three) times a day. tricia root (TRICIA Take 1 capsule by 0 5 11/30/2018 EXTRACT ORAL) mouth 3 (three) times a day. glucosamine/msm/csa/ashlyn/h Take 1 tablet by 0 05/0511/30/2018 rb115 mouth 2 (two) times (EBOXSYLTIF-RUXUY-ABS-ASHLYN a day. -115HC ORAL) hydrocortisone Insert 1 [...] mg 0 11/30/2018 powder UNABLE TO FIND [place] 200mg 0 08/05 valacyclovir HCl (VALTREX Take by mouth as 0 02/16/2019 ORAL) needed. documented as of this encounter Plan of Treatment Upcoming Encounters Date Type Specialty Care Team Description 09/08/2022 Procedure visit Aesthetic Medicine and Juanita Vaz, Surgery FANCY PACKER, C.N.P. [address] [place] [address] (Wo rk) 09/08/2022 Comprehensive Visit Aesthetic Medicine and [place], Lucerogayatri Decker Surgery Francesca, Ph.D. [address] [place] [address] (Wo rk) documented as of this encounter [...] Mitral documented in this encounter Care Teams Research Scientist Relationship Specialty Start Date End Date Elsewhere, Pcp PCP - General Internal Medicine 07/03/17 documented as of this encounter
--- OUTSIDE RECORDS SUMMARY | 2022-07-30 20:38 | XMS_ITS | Encounter Summary ---
:1945 Author Organization [facility] Address [address] [place] [address] Care Team Providers Name Role Phone Elsewhere, Pcp Primary Care Provider Unavailable Reason for Visit Appointment Request (Routine) - Closed Specialty Diagnoses / Procedures Referred By Contact Refer red To Contact Cardiovascular Disease Referral ID Status Reason Start Date Expiration Date Visits Requ ested Visits Authorized [id number] Closed 05/19/2018 05/19/2019 1 1 Encounter Details Date Type Department Care Team Description 06/22/2018 Comprehensive Visit Department of Natividad Scott M.D. [address] [place] [phone] Abnormal Echocardiogram (Primary Dx); Cardiovascular Leobardo Pruitt M.D. [address] [place] [phone] Hypertension Essential Primary; Medicine in [place], Hyper lipidemia [place] [address] [place] [phone] Social History Tobacco Use Types Packs/Day Years [...] was feeling fatigued. She presented to the [facility] for evaluation and underwent some cardiac testing. [...] since that evaluati on. She self-referred to [facility]. Due to concern about valvular heart disease [...] a day., Disp: , Rfl: ??? CINNAMON LYUS-MUDYPBGY-FBA ORAL, Take 2 tablets by mouth daily., [...] times a day., Disp: , Rfl: ??? glucosamine/msm/csa/ashlyn/msw372 (YMVVSZZTQY-EZNFF-LKN-ASHLYN-115HC ORAL), Take 1 tablet by mouth 2 [...] Disp: , Rfl: ??? UNABLE TO FIND, [place] 200mg, Disp: , Rfl: ??? valacyclovir HCl [...] visit Aesthetic Medicine and Juanita Vaz, Surgery AUTOMOTIVE SALES EXECUTIVE, C.N.P. [address] [place] [address] (Charlotte bentley) 09/08/2022 Comprehensive Visit Aesthetic Medicine Lucero Mckeon Surgery M.D., Ph.D. [address] [place] [address] (Charlotte bentley) documented as of this encounter Visit Diagnoses Diagnosis Abnormal Echocardiogram - Primary Hypertension Essential Primary Hyperlipidemia documented in this encounter Care Teams Hat Parts Cutter Machine Relationship Specialty Start Date End Date Elsewhere, Pcp PCP - General Internal Medicine 07/03/17 documented as of this encounter
--- OUTSIDE RECORDS SUMMARY | 2022-07-30 20:38 | XMS_ITS | Encounter Summary ---
:1945 Author Organization [facility] Address [address] [place] [address] Care Team Providers Name Role Phone Elsewhere, Pcp Primary Care Provider Unavailable Reason for Referral Outpatient (Routine) - Closed Specialty Diagnoses / Procedures Referred By Contact Refer red To Contact Vascular Medicine Diagnoses Varicose Vein Lower Extremity Bilateral Manisha Mead M.D. [address] [phone] Referral ID Status Reason Start Date Expiration Date Visits Requ ested Visits Authorized [id number] Closed 09/06/2018 09/06/2019 1 1 Scheduling Instructions PAC utpatient (Routine) - Closed Specialty Diagnoses / Procedures Referred By Contact Refer red To Contact Diagnoses Screening Examination Skin Cancer Manisha Mead M.D. [address] [phone] Referral ID Status Reason Start Date Expiration Date Visits Requ ested Visits Authorized [id number] Closed 09/06/2018 09/06/2019 1 1 S MILL OPERATOR Reason for Visit Reason Onset Date Comments Triage 08/12/2018 Encounter Details Date Type Department Care Team Description 08/12/2018 Clinical Communication Division of [facility] Internal Medicine Adi Malone M.D., in [address] [place] [phone] [phone] Social History Tobacco Use Types Packs/Day Years [...] or slept in a alf (including now)? Sex Assigned at Date Recorded Female 07/26/2020 9:06 PM CDT documented as of this encounter Miscellaneous Notes Telephone Encounter - Adi Cazares M.D. - 08/12/2018 2:10 PM ROLLS MILL OPERATOR Decision: Approve - Patient not here Consults: Dermatology: Skin check consult: Indication: skin check. Vascular: Other vascular consult. Indication: Vascular Medicine Indicaiton, varicose veins. S MILL OPERATOR Telephone Encounter - Margot Townsend - 08/12/2018 2:05 PM CST Yamileth Sheikh [id number] 1945 Who filled out form: Sallie RIVERA [id number] Goals: 1) I would like a diagnosis [...] Dr. Dalton Bolaños at department of urology [facility] Diabetic? No SCHEDULING QUESTIONS Dates to avoid scheduling: Sep 26-Oct 05Oct 28 Best time to contact: Morning 8:00 - 11:00 AM Afternoon NOON to 5:00 PM cell Agree? I have read the General Internal Medicine Model of Care as noted above and agree to the process outlined. S MILL OPERATOR documented in this encounter Plan of Treatment Upcoming Encounters Date Type Specialty Care Team Description 09/08/2022 Procedure visit Aesthetic Medicine and Juanita Vaz, Surgery BULK PIGMENT REDUCER, C.N.P. [address] [place] [address] (Wo rk) 09/08/2022 Comprehensive Visit Aesthetic Medicine and Lucero Pritchard, Surgery Francesca, Ph.D. [address] [place] [address] (Wo rk) Scheduled Referrals Name Type Priority [...] Extremity - Hemodynamic Study (12/01/2018 10:30 AM ROLLS MILL OPERATOR) Anatomical Region Laterality Modality Other Specimen (Source) Anatomical Collection Method Collection Time Re ceived Time Location / / Volume Laterality 12/01/2018 10:09 AM ROLLS MILL OPERATOR Narrative 12/01/2018 10:09 AM ROLLS MILL OPERATOR Right: OUTFLOW PLETHYSMOGRAPHY: ? Patent venous outflow. [...] Extremity Venous Insufficiency Bilateral (12/01/2018 9:32 AM ROLLS MILL OPERATOR) Anatomical Region Laterality Modality Lower Extremity, Ultrasound RST LOS, Ultrasound ARZ LOS, Santosh ateral Ultrasound Ultrasound FLA LOS Specimen (Source) Anatomical Collection Method Collection Time Re ceived Time Location / / Volume Laterality 12/01/2018 9:32 AM ROLLS MILL OPERATOR Impressions 12/01/2018 10:13 AM ROLLS MILL OPERATOR IMPRESSION: ??Varicosities and insufficiency in the bilateral lower extremities. Please see the findings for a detailed r eport. Narrative 12/01/2018 10:13 AM ROLLS MILL OPERATOR EXAM: ??US LOWER EXTREMITY VENOUS INSUFFICIENCY BILATERAL Exam performed with color and spectral D oppler analysis. COMPARISON: ??None. FINDINGS: RIGHT: The deep veins are patent without thromb us. 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 The SSV is moderately incompetent with v aricosities in the upper calf. A large (0.4 cm) incompetent deep child care center administrator pos terior to the knee gives rise [...] calf. A large (0.4 cm) incompetent deep child care center administrator pos terior to the knee gives rise [...] Bilateral documented in this encounter Care Teams Portable Trackman Relationship Specialty Start Date End Date Elsewhere, Pcp PCP - General Internal Medicine 07/03/17 documented as of this encounter
--- OUTSIDE RECORDS SUMMARY | 2022-07-30 20:38 | XMS_ITS | Encounter Summary ---
:1945 Author Organization [facility] Address [address] [place] [address] Care Team Providers Name Role Phone Elsewhere, Pcp Primary Care Provider Unavailable Reason for Visit Reason Onset Date Comments Communication 08/09/2018 Encounter Details Date Type Department Care Team Description 08/09/2018 Clinical Communication Department of [facility] [place] Dermatology in Airam Malone M.D. [place], [place] [address] [facility] [address] [place] [phone] Social History Tobacco Use Types Packs/Day Years [...] the GIM request and appropriate Request Notes Y CANDY MAKER Telephone Encounter - Eleni Bautista - 08/09/2018 12:10 PM CST GIM/DERM Sales Engagement Manager Patient Patient Name: Yamileth Sheikh Patient Clinic Number: [id number] Indication: Dystrophic Toenail Comment: No Bx Y CANDY MAKER documented in this encounter Plan of Treatment Upcoming Encounters Date Type Specialty Care Team Description 09/08/2022 Procedure visit Aesthetic Medicine and Juanita Vaz, Surgery TENDER COORDINATOR, C.N.P. [address] [place] [phone] (Wo rk) 09/08/2022 Comprehensive Visit Aesthetic Medicine Lucero Mckeon, Surgery M.D., Ph.D. [address] [place] [phone] (Wo rk) documented as of this encounter Visit Diagnoses Not on filedocumented in this encounter Care Teams Research Executive Relationship Specialty Start Date End Date Elsewhere, Pcp PCP - General Internal Medicine 07/03/17 documented as of this encounter
--- OUTSIDE RECORDS SUMMARY | 2022-07-30 20:38 | XMS_ITS | Encounter Summary ---
:1945 Author Organization [facility] Address [address] [place] [address] Care Team Providers Name Role Phone Elsewhere, Pcp Primary Care Provider Unavailable Encounter Details Date Type Department Care Team Description 05/06/2018 Anesthesia Event Outpatient Procedure Gabino Cardenas A PRN, Center in [facility] [address] [facility] [address] [place] [phone] Anesthesia Record Procedure Summary Procedure Name Responsible [...] h andoff to the receiving staff during [facility] we 1. Identified the patient [...] Sheri L, APRN, Time: 1021 (created via QC TECH procedure documentation); Mask Ventilation: Easy mask; Removal [...] Procedure Summary Date: 05/06/18 Room / Location: [place] [address] / [facility] in [place], [place] Anesthesia Start: 1009 Anesthesia Stop: 1136 [...] patient / legal guardian, or through an park interpreter; patient evaluated and approved for anesthesia / sedation. Use of blood products discussed with patient who consented to blood products. documented in this encounter Plan of Treatment Upcoming Encounters Date Type Specialty Care Team Description 09/08/2022 Procedure visit Aesthetic Medicine and Juanita Vaz, Surgery CLAUDIA, C.N.P. [address] [place] [phone] (Charlotte bentley) 09/08/2022 Comprehensive Visit Aesthetic Medicine and Lucero Pritchard Surgery M.D., Ph.D. [address] [place] [phone] (Charlotte bentley) documented as of this encounter [...] Intra-op documented in this encounter Care Teams Sexual Assault Counselor Relationship Specialty Start Date End Date Elsewhere, Pcp PCP - General Internal Medicine 07/03/17 documented as of this encounter
--- OUTSIDE RECORDS SUMMARY | 2022-07-30 20:38 | XMS_ITS | Encounter Summary ---
:1945 Author Organization [facility] Address [address] [place] [address] Care Team Providers Name Role Phone Elsewhere, Pcp Primary Care Provider Unavailable Encounter Details Date Type Department Care Team Description 06/22/2018 Hospital Encounter Department of Christine Gray; Laboratory Medicine M, HEAD START TEACHER, C.N.P., Regu rgitation Mitral and Pathology, D.N.P. [address] [phone] [place] [address] [place], [place] (Work) [phone] Social History Tobacco Use Types Packs/Day Years [...] CINNAMON Take 2 tablets by 0 019 JASZ-NSRYNFKM-JFR ORAL mouth daily. garlic tablet Take 1 tablet by 0 05/24/201511/30 mouth 3 (three) times a day. tricia root (TRICIA Take 1 capsule by 0 5 11/30/2018 EXTRACT ORAL) mouth 3 (three) times a day. glucosamine/msm/csa/ashlyn/h Take 1 tablet by 0 05/0511/30/2018 rb115 mouth 2 (two) times (TZSUKVOPCK-QJFDR-VVN-ASHLYN a day. -115HC ORAL) hydrocortisone Insert 1 [...] mg 0 11/30/2018 powder UNABLE TO FIND [place] 200mg 0 08/05 valacyclovir HCl (VALTREX Take by mouth as 0 02/16/2019 ORAL) needed. documented as of this encounter Plan of Treatment Upcoming Encounters Date Type Specialty Care Team Description 09/08/2022 Procedure visit Aesthetic Medicine and Juanita Vaz, Surgery HEAD START TEACHER, C.N.P. [address] [place] [phone] (Wo rk) 09/08/2022 Comprehensive Visit [facility] Medicine and Lucero Pritchard, Surgery MJayda, Ph.D. [address] [place] [address] (Wo rk) documented as of this encounter [...] documented in this encounter Results Thyroid Function [place] (06/22/2018 10:37 AM CDT) athologist Signature TSH, Sensitive 0.7 0.3 - 4.2 06/22/2018 [facility] mIU/L 11:49 AM CDT LABORATORIES - [facility] Specimen Anatomical Collection Method Collection Time Receive d Time (Source) Location / / Volume Laterality Blood (Blood, 06/22/2018 10:37 06/22/2018 Venous) AM CDT 10:59 AM CDT Qi Scott M.D. LAB BLOOD ADD-ON Performing Organization Address City/State/ZIP Code Phon e Number [facility] LABORATORIES - 200 [place], [place] [address] [facility] (ABNORMAL) CBC without Differential (06/22/2018 10:37 AM CDT) Patholo gist Method Time Signature Hemoglobin 14.4 11.6 - 06/22/2018 [facility] 15.0 g/dL 11:09 AM CDT LABORATORIES - [facility] Hematocrit 43.2 35.5 - 06/22/2018 [facility] 44.9 % 11:09 AM CDT LABORATORIES - [facility] Erythrocytes 4.71 3.92 - 06/22/2018 [facility] 5.13 11:09 AM CDT LABORATORIES - x10(12)/L [facility] MCV 91.7 78.2 - 06/22/2018 [facility] 97.9 fL 11:09 AM CDT LABORATORIES - [facility] RBC Distrib 13.1 12.2 - 06/22/2018 [facility] Width 16.1 % 11:09 AM CDT LABORATORIES [facility] Platelet Count 153 (L) 157 - 371 06/22/2018 [facility] x10(9)/L 11:09 AM CDT LABORATORIES - [facility] Leukocytes 5.9 3.4 - 9.6 06/22/2018 [facility] x10(9)/L 11:09 AM CDT LABORATORIES [facility] Specimen Anatomical Collection Method Collection Time Receive d Time (Source) Location / / Volume Laterality Blood (Blood, 06/22/2018 10:37 06/22/2018 Venous) AM CDT 10:59 AM CDT Qi Scott M.D. LAB BLOOD ADD-ON Performing Organization Address City/State/ZIP Code Phon e Number [facility] - 200 [place], [place] [address] [facility] Creatinine with Estimated GFR (06/22/2018 10:37 AM CDT) Analysis Performed At Patho logist Time Signature Creatinine 0.76 0.59 - 06/22/2018 [facility] 1.04 mg/dL 11:49 AM CDT LABORATORIES [facility] eGFR-Non 79 >=60 06/22/2018 [facility] Black/ mL/min/BSA 11:49 AM CDT LABORATORIES - [facility] Comment: ----ADDITIONAL INFORMATION---- Estimated GFR calculated using the 2009 CKD_EPI creatinine equation. eGFR-Black/ >90 >=60 mL/min/BSA 06/22/2018 11:[address] [facility] Finnish AM CDT LABORATORIES [facility] Comment: ----ADDITIONAL INFORMATION---- Estimated GFR calculated using the 2009 CKD_EPI creatinine equation. Specimen Anatomical Collection Method Collection Time Receive d Time (Source) Location / / Volume Laterality Blood (Blood, 06/22/2018 10:37 06/22/2018 Venous) AM CDT 10:59 AM CDT Qi Scott M.D. LAB BLOOD ADD-ON Performing Organization Address City/State/ZIP Code Phon e Number [facility]ATORIES - 200 [place] [address] [facility] Potassium (06/22/2018 10:37 AM CDT) P athologist Signature Potassium, S 4.8 3.6 - 5.2 06/22/2018 [facility] mmol/L 11:49 AM CDT [facility] Specimen Anatomical Collection Method Collection Time Receive d Time (Source) Location / / Volume Laterality Blood (Blood, 06/22/2018 10:37 06/22/2018 Venous) AM CDT 10:59 AM CDT Qi Scott M.D. LAB BLOOD ADD-ON Performing Organization Address City/[facility]/ZIP Code Phon e Number [facility] LAB[facility]ATORIES - [address] [place] [address] [facility] Sodium (06/22/2018 10:37 AM CDT) P athologist Signature Sodium, S 141 135 - 145 06/22/2018 [facility] mmol/L 11:49 AM CDT [facility] Specimen Anatomical Collection Method Collection Time Receive d Time (Source) Location / / Volume Laterality Blood (Blood, 06/22/2018 10:37 06/22/2018 Venous) AM CDT 10:59 AM CDT Qi Scott M.D. LAB BLOOD ADD-ON Performing Organization Address City/State/ZIP Code Phon e Number [facility]IES - 200 [place] [address] [facility] Phosphorus Inorganic (06/22/2018 10:37 AM CDT) Analysis Performed At Patho logist Time Signature Phosphorus 3.8 2.5 - 4.5 06/22/2018 [facility] (Inorganic), S mg/dL 11:49 AM CDT LABORATORIES [facility] Specimen Anatomical Collection Method Collection Time Receive d Time (Source) Location / / Volume Laterality Blood (Blood, 06/22/2018 10:37 06/22/2018 Venous) AM CDT 10:59 AM CDT Christine Gray APRN, C.N.P., D.N.P. LAB BLOOD ADD-ON Performing Organization Address City/State/ZIP Code Phon e Number [facility]ATORIES - [address] [place] [address] [facility] documented in this encounter Visit Diagnoses Diagnosis Osteopenia Regurgitation Mitral documented in this encounter Care Teams Care Professionals Relationship Specialty Start Date End Date Elsewhere, Pcp PCP - General Internal Medicine 07/03/17 documented as of this encounter
--- OUTSIDE RECORDS SUMMARY | 2022-07-30 20:38 | XMS_ITS | Encounter Summary ---
:1945 Author Organization [facility] Address [address] [place] [address] Care Team Providers Name Role Phone Elsewhere, Pcp Primary Care Provider Unavailable Reason for Visit Reason Onset Date Comments Pre-visit Testing Orders 06/16/2018 Encounter Details Date Type Department Care Team Description 06/16/2018 Clinical Department of [facility], Pre-visit Test ing Communication Cardiovascular Ej Busby. Orders Medicine in [place], [address] [place] [address] [place] [phone] Social History Tobacco Use Types Packs/Day Years [...] Aesthetic Medicine and Juanita Vaz, Surgery CHIEF MAINTENANCE SUPERVISOR, C.N.P. [address] [place] [phone] (Wo rk) 09/08/2022 Comprehensive Visit Aesthetic Medicine and Lucero Pritchard, Surgery M.DAnali, Ph.D. [address] [place] [phone] (Wo rk) documented as of this encounter Results Thyroid Function [place] (06/22/2018 10:37 AM CDT) athologist Signature TSH, Sensitive 0.7 0.3 - 4.2 06/22/2018 [facility] mIU/L 11:49 AM CDT [facility]ATOR[facility] Specimen Anatomical Collection Method Collection Time Receive d Time (Source) Location / / Volume Laterality Blood (Blood, 06/22/2018 10:37 06/22/2018 Venous) AM CDT 10:59 AM CDT Qi Scott M.D. LAB BLOOD ADD-ON Performing Organization Address City/State/ZIP Code Phon e Number [facility] LABORATORIES - 200 [place], [place] [address] [facility] (ABNORMAL) CBC without Differential (06/22/2018 10:37 AM CDT) [facility] gist Method Time Signature Hemoglobin 14.4 11.6 - 06/22/2018 [facility] 15.0 g/dL 11:09 AM CDT [facility] Hematocrit 43.2 35.5 - 06/22/2018 [facility] 44.9 % 11:09 AM CDT [facility] Erythrocytes 4.71 3.92 - 06/22/2018 [facility] 5.13 11:09 AM CDT LABORATORIES - x10(12)/L [facility] MCV 91.7 78.2 - 06/22/2018 [facility] 97.9 fL 11:09 AM CDT [facility] RBC Distrib 13.1 12.2 - 06/22/2018 [facility] Width 16.1 % 11:09 AM CDT LABORATORIES - [facility] Platelet Count 153 (L) 157 - 371 06/22/2018 [facility] x10(9)/L 11:09 AM CDT [facility] - [facility] Leukocytes 5.9 3.4 - 9.6 06/22/2018 [facility] x10(9)/L 11:09 AM CDT LABORATORIES - [facility] Specimen Anatomical Collection Method Collection Time Receive d Time (Source) Location / / Volume Laterality Blood (Blood, 06/22/2018 10:37 06/22/2018 Venous) AM CDT 10:59 AM CDT Qi Scott M.D. LAB BLOOD ADD-ON Performing Organization Address City/[facility] Code Phon e Number [facility] LABORATORIES - [address] Creatinine with Estimated GFR (06/22/2018 10:37 AM CDT) Analysis Performed At Patho logist Time Signature Creatinine 0.76 0.59 - 06/22/2018 [facility] 1.04 mg/dL 11:49 AM CDT LABORATORIES - [facility] eGFR-Non 79 >=60 06/22/2018 [facility] Black/ mL/min/BSA 11:49 AM CDT LABORATORIES [facility] Comment: ----ADDITIONAL INFORMATION---- Estimated GFR calculated using the 2009 CKD_EPI creatinine equation. eGFR-Black/ >90 >=60 mL/min/BSA 06/22/2018 11:[address] [facility] CDT [facility] Comment: ----ADDITIONAL INFORMATION---- Estimated GFR calculated using the 2009 CKD_EPI creatinine equation. Specimen Anatomical Collection Method Collection Time Receive d Time (Source) Location / / Volume Laterality Blood (Blood, 06/22/2018 10:37 06/22/2018 Venous) AM CDT 10:59 AM CDT Qi Scott M.D. LAB BLOOD ADD-ON Performing Organization Address City/[facility] Code Phon e Number [facility] LABORATORIES - 200 [place] [address] [facility] Potassium (06/22/2018 10:37 AM CDT) P athologist Signature Potassium, S 4.8 3.6 - 5.2 06/22/2018 [facility] mmol/L 11:49 AM CDT [facility] Specimen Anatomical Collection Method Collection Time Receive d Time (Source) Location / / Volume Laterality Blood (Blood, 06/22/2018 10:37 06/22/2018 Venous) AM CDT 10:59 AM CDT Qi Scott M.D. LAB BLOOD ADD-ON Performing Organization Address City/[facility]/ZIP Code Phon e Number [facility] LABORATORIES - [address] [place] [address] [facility] Sodium (06/22/2018 10:37 AM CDT) P athologist Signature Sodium, S 141 135 - 145 06/22/2018 [facility] mmol/L 11:49 AM CDT [facility] Specimen Anatomical Collection Method Collection Time Receive d Time (Source) Location / / Volume Laterality Blood (Blood, 06/22/2018 10:37 06/22/2018 Venous) AM CDT 10:59 AM CDT Qi Scott M.D. LAB BLOOD ADD-ON Performing Organization Address [facility]/ZIP Code Phon e Number [facility] LABORATORIES - 200 [place] [address] [facility] ECG 12 Lead (06/21/2018 11:21 AM CDT) P athologist Signature Ventricular Rate 57 BPM MUSE ECG/Min ID Interval 170 ms MUSE QRSD Interval 100 ms MUSE QT Interval 418 ms MUSE QTC Interval 406 ms MUSE P [place] 43 degrees MUSE R [place] 12 degrees MUSE T Wave [place] 51 degrees MUSE Specimen Anatomical Collection Method [...] Scott M.D. ECG ORDERABLES Performing Organization Address [facility]/ZIP Code Phon e Number MUSE MUSE NA [...] Mitral documented in this encounter Care Teams Sugar Chipper Machine Operator Relationship Specialty Start Date End Date Elsewhere, Pcp PCP - General Internal Medicine 07/03/17 documented as of this encounter
--- OUTSIDE RECORDS SUMMARY | 2022-07-30 20:38 | XMS_ITS | Encounter Summary ---
:1945 Author Organization [facility] Address [address] [place] [address] Care Team Providers Name Role Phone Elsewhere, Pcp Primary Care Provider Unavailable Encounter Details Date Type Department Care Team Description 06/10/2018 Documentation Department of Alicia Johnston, Cardiovascular Medicine in M.Norma, M.P.H. [place], [place] [address] [place] [address] [address] [place] [phone] (Wo rk) Social History Tobacco Use Types [...] documented as of this encounter Progress Notes Alicia Johnston M.D., M.P.H. - 06/10/2018 4:03 PM CDT The patient is a 72-year-old female who would like a cardiovascular evaluation at the [facility]. Icalled at home at [phone]. She says she has a history of hypertension, atherosclerosis, and some mild valvular disease. The most recent echocardiogram was from [place] performed on 04/22/2018 and it showed the following: Global and regional left ventricular function is normal with an EF of 60-65%. Left ventricular wall thickness and size are normal. Left ventricular diastolic function is normal. Global right ventricular function and size are normal. Pulmonary artery systolic pressure is normal. No pericardial effusion. Mild tricuspid insufficiency is present. Please arrange for consultations in 1. General Cardiology Clinic 2. Hypertension Clinic documented in this encounter Plan of Treatment Upcoming Encounters Date Type Specialty Care Team Description 09/08/2022 Procedure visit Aesthetic Medicine and Juanita Vaz, Surgery COLD ROLLER, C.N.P. [address] [place] [phone] (Wo mc) 09/08/2022 Comprehensive Visit Aesthetic Medicine Lucero Mckeon, Andreia MJayda, Ph.D. [address] [place] [phone] (Wo rk) documented as of this encounter Visit Diagnoses Not on filedocumented in this encounter Care Teams Production Control Supervisor Relationship Specialty Start Date End Date Elsewhere, Pcp PCP - General Internal Medicine 07/03/17 documented as of this encounter
--- OUTSIDE RECORDS SUMMARY | 2022-07-30 20:38 | XMS_ITS | Encounter Summary ---
:1945 Author Organization [facility] Address [address] [place] [address] Care Team Providers Name Role Phone Elsewhere, Pcp Primary Care Provider Unavailable Encounter Details Date Type Department Care Team Description 08/29/2018 Orders Only Division of Endocrinology in Margot Galdamez [place], [place] [address] [place] [phone] Social History Tobacco Use Types Packs/Day [...] Description 09/08/2022 Procedure visit Aesthetic Medicine and uJanita Vaz, Surgery NITRO WORKER, C.N.P. [address] [place] [phone] ([place] bentley) 09/08/2022 Comprehensive Visit Aesthetic Medicine and Lucero Pritchard, Surgery MJayda, Ph.D. [address] [place] [phone] ([place] bentley) documented as of this encounter Visit Diagnoses Not on filedocumented in this encounter Care Teams Slasher Tender Relationship Specialty Start Date End Date Elsewhere, Pcp PCP - General Internal Medicine 07/03/17 documented as of this encounter
--- OUTSIDE RECORDS SUMMARY | 2022-07-30 20:38 | XMS_ITS | Encounter Summary ---
:1945 Author Organization [facility] Address [address] [place] [address] Care Team Providers Name Role Phone Elsewhere, Pcp Primary Care Provider Unavailable Reason for Referral Outpatient (Routine) - Closed Specialty Diagnoses / Procedures Referred By Contact Refer red To Contact Certified Nurse Diagnoses Osteopenia JoleneAranza Beaulieu [facility] Practitioner / Kaleigh Pulliam M.D. Preventive Medicine [address] [place] [phone] Referral ID Status Reason Start Date Expiration Date Visits Requ ested Visits Authorized [id number] Closed 05/24/2018 05/24/2019 1 1 Reason for Visit Reason Onset Date Comments Communication 05/16/2018 Encounter Details Date Type Department Care Team Description 05/16/2018 Clinical Communication Department of Dexter Francois Obstetrics and Kaleigh Pulliam M.D. Gynecology in [address] [place] [address] [place] [phone] [place], [place] [phone] (Work) [phone] Social History Tobacco Use Types Packs/Day Years [...] like a referral to someone here at [place]. Telephone Encounter - Margot Kee R.N. - 05/17/2018 8:41 AM CDT There is no notation that she has not been seen since 2015 or any recent DEXA scans since 06/2016. Would she want to follow up with her PCP? Telephone Encounter - Kaleigh Francois M.D. - 05/16/2018 2:51 PM CDT [facility] a [facility] [...] visit Aesthetic Medicine and Juanita Vaz, Surgery FURNACE DOOR TENDER, C.N.P. [address] [place] [phone] ([place] bent[place]) 09/08/2022 Comprehensive Visit Aesthetic Medicine Lucero Mckeon, Surgery M.Norma, Ph.D. [address] [place] [phone] ([place] bent[place]) Scheduled Referrals Name Type Priority Associated Order Schedule Diagnoses Preventive Medicine Outpatient Referral Routine Osteopenia E xpected: - Preventive 05/24/2018 services consult (Approximat e), (clinic) Expires: 05/24/2021 documented as of this encounter Visit Diagnoses Diagnosis Osteopenia - Primary documented in this encounter Care Teams Conveyor Line Bakery Worker Relationship Specialty Start Date End Date Elsewhere, Pcp PCP - General Internal Medicine 07/03/17 documented as of this encounter
--- OUTSIDE RECORDS SUMMARY | 2022-07-30 20:38 | XMS_ITS | Encounter Summary ---
:1945 Author Organization [facility] Address [address] [place] [address] Care Team Providers Name Role Phone Elsewhere, Pcp Primary Care Provider Unavailable Encounter Details Date Type Department Care Team Description 07/12/2018 Clinical Communication Section of Preventive, Emerald Gray and MCLAUDIA, C.N.P., Occupational Medicine D.N.P. in [facility] [address] [facility] [address] [place] [phone] Social History Tobacco Use Types Packs/Day Years [...] Juanita Vaz, Surgery CLAUDIA, C.N.P. [address] [place] [phone] (Wo rk) 09/08/2022 Comprehensive Visit Aesthetic Lucero Arita, Andreia MJayda, Ph.D. [address] [place] [phone] (Wo rk) documented as of this encounter Visit Diagnoses Not on filedocumented in this encounter Care Teams Disposal Man Relationship Specialty Start Date End Date Elsewhere, Pcp PCP - General Internal Medicine 07/03/17 documented as of this encounter
--- OUTSIDE RECORDS SUMMARY | 2022-07-30 20:38 | XMS_ITS | Encounter Summary ---
:1945 Author Organization [facility] Address [address] [place] [address] Care Team Providers Name Role Phone Elsewhere, Pcp Primary Care Provider Unavailable Encounter Details Date Type Department Care Team Description 08/05/2018 Community Orders [facility] Naomy Mejias Nail CORPORATE OFFICE Giovanny Vera M.D. (Primary Dx) [address] [address], [place], [place] [phone] [place] [address] Social History Tobacco Use Types Packs/Day Years [...] slept in a group home (including now)? Sex Assigned at Date Recorded Female 07/26/2020 9:06 PM CDT documented as of this encounter Plan of Treatment Upcoming Encounters Date Type Specialty Care Team Description 09/08/2022 Procedure visit Aesthetic Medicine and Juanita Vaz, Surgery EXTRUSION PRESS SUPERVISOR, C.N.P. [address] [place] [phone] (Wo rk) 09/08/2022 Comprehensive Visit Aesthetic Medicine Lucero Mckeon, Surgery M.DAnali, Ph.D. [address] [place] [phone] (Wo rk) documented as of this encounter Visit Diagnoses Diagnosis Dystrophic Nail - Primary documented in this encounter Additional Health Concerns Infection Onset Date Last Indicated Resolved Time COVID19 Pending 09/09/2020 09/09/2020 09/09/2020 4:30 PM SENIOR SQL DEVELOPER documented as of this encounter Care Teams Machine Maintenance Repairer Relationship Specialty Start Date End Date Elsewhere, Pcp PCP - General Internal Medicine 07/03/17 documented as of this encounter
--- OUTSIDE RECORDS SUMMARY | 2022-07-30 20:38 | XMS_ITS | Encounter Summary ---
:1945 Author Organization [facility] Address [address] [place] [address] Care Team Providers Name Role Phone Elsewhere, Pcp Primary Care Provider Unavailable Reason for Referral Outpatient (Routine) - Closed Specialty Diagnoses / Referred By Contact Referred To Contact Procedures Reproductive Diagnoses Osteopenia Christine Gray [facility] Endocrinology and CLAUDIA, C.N.P., Infertility / D.N.P. Endocrinology [address] [place] [phone] Referral ID Status Reason Start Date Expiration Date Visits Requ ested Visits Authorized [id number] Closed 06/03/2018 06/03/2019 1 1 Reason for Visit Reason Comments Preventive Visit Outpatient (Routine) - Closed Specialty Diagnoses / Procedures Referred By Contact Refer red To Contact Certified Nurse Diagnoses [facility] / Kaleigh Pulliam M.D. Preventive Medicine [address] [place] [phone] Referral ID Status Reason Start Date Expiration Date Visits Requ ested Visits Authorized [id number] Closed 05/24/2018 05/24/2019 1 1 Encounter Details Date Type Department Care Team Description 06/03/2018 Comprehensive Visit Section of Christine Gray Preventive (Primary Dx); Preventive, M, PRESS SET UP PERSON, Preventive Gyne cological Exam; Transportation and C.N.P., D.N.P . Osteopenia Occupational Medicine 200 [facility] in [facility] [phone] 200 [facility] [phone] [place], [place] (Work) [phone] Social History Tobacco Use Types Packs/Day Years [...] a primary care provider at home in [place], [place]. Past history significant for osteopenia, hypertension, [...] the Cardiovascular Clinic near her home in [place]. Known early family history of CAD or [...] years ago and has been evaluated in SUPERVISOR EVAPORATOR here at [place] for that concern. At that time patient [...] She did have breast reduction surgery in [phone]. Denies any breast symptoms or changes. She does perform regular breast self-examinations and has not noticed any lumps, nipple discharge, retraction, or skin changes. She notes that she has fibrocystic dense breasts. Last mammogram completed at [facility] in 2015 showed a B breast density. No known family history of breast cancer. Osteoporosis screening: Patient has a history of osteopenia with her last BMD screening completed at [facility] on 04/13/2018,please refer to outside records. Bone density scan completed at that time continued to show osteopenia. Patient states that she was told by the healthcare providers at this facility she should begin treatment with an oral bisphosphonate. Today, she is requesting a referral to [facility] EndocrinologyDepartment for a 2nd opinion as [...] told in April, by a provider at [facility] she should begin treatment with an oral bisphosphonate after her last bone density scan results which showed continued osteopenia. Patient would like to be seen by Endocrinology here at [facility] for further evaluation of her osteopenia [...] and Juanita Vaz, Surgery CLAUDIA, C.N.P. [address] [place] [phone] (Wo rk) 09/08/2022 Comprehensive Visit Aesthetic Medicine Lucero Mckeon, Surgery MJayda, Ph.D. [address] [place] [phone] (Charlotte rk) Scheduled Referrals Name Type Priority [...] Signature Phosphorus 3.8 2.5 - 4.5 06/22/2018 [facility] (Inorganic), S mg/dL 11:49 AM CDT LABORATORIES - [facility] Specimen Anatomical Collection Method Collection Time Receive d Time (Source) Location / / Volume Laterality Blood (Blood, 06/22/2018 10:37 06/22/2018 Venous) AM CDT 10:59 AM CDT Christine Gray APRN, C.N.P., D.N.P. LAB BLOOD ADD-ON Performing Organization Address City/State/ZIP Code Phon e Number [facility]ORATORIES - 200 [place], [place] [address] [facility] HPV with Genotyping, PCR, ThinPrep (06/03/2018 2:00 PM CDT) Patholo gist Method Time Signature Specimen CERVIX / 06/08/2018 [facility] Source ENDOCERVIX 2:52 PM CDT LABORATORIES - [facility] HPV High Risk Negative Negative 06/08/2018 [facility] type 16, PCR 2:52 PM CDT LABORATORIES - [facility] HPV High Risk Negative Negative 06/08/2018 [facility] type 18, PCR 2:52 PM CDT LABORATORIES - [facility] HPV other Negative Negative 06/08/2018 [facility] High Risk 2:52 PM CDT LABORATORIES - types, PCR [facility] Comment: The following Other High Risk HPV types were not detected: 31, 33, 35, 39, 45, 51, 52, 56, 58, 59, 66, and 68 This test was ordered in the context of a [facility] SUPERVISOR EVAPORATOR Cytology case; this result should be int erpreted within the context of the SUPERVISOR EVAPORATOR cytology report. Specimen Anatomical Collection Method Collection Time Receive d Time (Source) Location / / Volume Laterality Varies 06/03/2018 2:00 PM 8 6:30 CDT PM CDT Emerald Gandhi APRN.N.P., D.N.P. LAB MICROBIOLOGY - GENERAL ORDERABLES Performing Organization Address City/State/ZIP Code Phon e Number [facility] - 200 [place] [address] [facility] ThinPrep w/HPV Co-Test Screen (06/03/2018 2:00 PM CDT) Component Value Ref Test Analysis Performed At [facility] Range Method Time Signature 06/08/2018 [facility] 3:18 PM LABORATORIES - [facility] Report EITAN Grimaldo (ASCP) 06/08/2018 [facility] electronically I verify that I have examined all relevant slides/ma terials 3:18 PM LABORATORIES - signed by for the specimen(s) and rendered or confirmed the diagnosi s. [facility] Gross Received specimen 06/08/2018 [facility] Description in a ThinPrep 3:18 PM LABORATORIES - vial. 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 06/08/2018 [facility] 3:18 PM LABORATORIES - T [facility] Menstrual 04/02/2014 06/08/2018 [facility] Status(LMP, PM, 3:18 PM LABORATORIES - ) [facility] Hormone None/Not known 06/08/2018 [facility] Therapy/Contrace 3:18 PM LABORATORIES - ptives CDT [facility] Interpretation Cervical/Endocervical ??(ThinPrep): 06/08/2018 [facility] Satisfactory for Evaluation 3:18 PM [place] BORATORIES - Negative for Intraepithelial Lesion or Malignancy CDT [facility] ??High Risk HPV testing results are NEGATIVE. 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
--- OUTSIDE RECORDS SUMMARY | 2022-07-30 20:39 | XMS_ITS | Encounter Summary ---
:1945 Author Organization [facility] Address [address] [place] [address] Care Team Providers Name Role Phone Unavailable Primary Care Provider Unavailable Encounter Details Date Type Department Care Team Description 11/25/2008 [facility] M[facility]. Social History [...] visit Aesthetic Medicine and Juanita Vaz, Surgery PROOF TECHNICIAN HELPER, C.N.P. [address] [place] [address] (Wo rk) 09/08/2022 Comprehensive Visit Aesthetic Medicine and [place], Lucero Decker Surgery Francesca, Ph.D. [address] [place] [phone] (Wo rk) documented as of this encounter Visit Diagnoses Not on filedocumented in this encounter
--- OUTSIDE RECORDS SUMMARY | 2022-07-30 20:39 | XMS_ITS | Encounter Summary ---
:1945 Author Organization [facility] Address [address] [place] [phone] Care Team Providers Name Role Phone Elsewhere, Pcp Primary Care Provider Unavailable Reason for Visit Reason Comments Hypertension Outpatient (Routine) - Closed Specialty Diagnoses / Procedures Referred By Contact Refer red To Contact Nephrology and Diagnoses Elevated Creatinine [facility] M.DAnali [address] [place] [address] Referral ID Status Reason Start Date Expiration Date Visits Requ ested Visits Authorized [id number] Closed 04/15/2018 04/15/2019 1 1 Encounter Details Date Type Department Care Team Description 04/25/2018 Nurse Only Division of Nephrology and Don Sidhu M.D. Hypertension Hypertension in [facility], Giselle Pulliam, R.N. [address] [place] [phone] [place] [address] [place] [phone] Social History Tobacco Use Types Packs/Day [...] out and has met with our renal chemistry intern and has been educated on the DASH [...] Aesthetic Medicine and Juanita Vaz, Surgery COMPOSITION TILE LAYER, C.N.P. [address] [place] [phone] (Wo rk) 09/08/2022 Comprehensive Visit Aesthetic Medicine and Lucero Pritchard, Surgery M.Norma, Ph.D. [address] [place] [phone] (Wo rk) documented as of this encounter Visit Diagnoses Diagnosis Elevated Creatinine documented in this encounter Care Teams Organ Pipe Maker Metal Relationship Specialty Start Date End Date Elsewhere, Pcp PCP - General Internal Medicine 07/03/17 documented as of this encounter
--- OUTSIDE RECORDS SUMMARY | 2022-07-30 20:39 | XMS_ITS | Encounter Summary ---
:1945 Author Organization [facility] Address [address] [place] [address] Care Team Providers Name Role Phone Unavailable Primary Care Provider Unavailable Encounter Details Date Type Department Care Team Description 04/05/2009 Hospital Encounter HX [facility]F EUC Provider, Histori mega Social History Tobacco Use Types Packs/Day Years [...] PM CDT documented as of this encounter Discharge Summaries Gracy Nascimento R.N. - 04/05/2009 1:53 PM CDT ED Discharge Instructions [address] [id number] Name: YIMI GARCIA Date of : 1945 12:00 AM Reason For Visit: Urination painful; Urination painful; URINARY TRACT POSSIBLE INFECTION Visit Date: 04/05/2009 12:22 PM FIN: Current Date: 04/05/2009 13:53:50 [facility] [place] [phone] Primary Care Provider: Name: IMPORTANT: [facility] would like to thank you for allowing [...] be reviewed and we will contact you ifthere are any new or significant findings other than what was discussed with you during your visit today. You have received patient education materials and information regarding your injury/illness. Follow these instructions and take all medications as prescribed. If you, ( YIMI GARCIA ), have any problems that we have not discussed, please call or visit your doctor right away. If you cannot reach your doctor, return to the Emergency Department. IMPORTANTE: [facility] desea agradecerle por permitirnos asistirlo con edward necesidades m??dicas. Hoy lo examinamos y tratamos s??lo en base a shelby emergencia. [place] no constituy?? ni un sustituto ni un esfuerzo para proveer atenci??n m??dica completa. Si ameena castro visita se le hicieronculturas, ex??menes especiales o gray X, castro informe final ser?? estudiado y nos pondremos en contacto con usted si hubiera cualquier informaci??n nueva o significativa diferente de lo que discutimos con usted ameena castro visita de hoy. Usted kulkarni recibido materiales educativos para pacientes e informaci??n referente a castro lesi??n/enfermedad. Siga estas instrucciones y tome todos los medicamentos prescriptos. Si usted ( YIMI GARCIA ), tuviera cualquier otro problema que no hayamos discutido, por favor llame o visite a castro doctor inmediatamente. Si no puede ubicar a castro doctor, vuelva al Departamentode Emergencias. Follow-Up Instructions: With: Address: When: Follow up with primary care provider Within As needed Comments: Patient Education Materials: Prescriptions & Home Medications: Medication/Strength Dose Route Frequency Indications/Special Instructions/Comments estradiol (Vivelle 0.05 mg/24 hours twice weekly transdermal film, extended release) 1 patch(es) Topical 2 times a week progesterone (Prometrium) 1 cap once a day Patient Visit Summary: YIMI GARCIA has been given the following list of patient education materials, prescriptions, Home Medications and follow-up instructions: Follow-up Instructions: With: Address: When: Follow up with primary care provider Within As needed Comments: Patient Education Materials: DYSURIA, Uncertain Cause (Adult) Prescriptions & Home Medications: Continue These Medications: estradiol (Vivelle 0.05 mg/24 hours twice weekly transdermal film, extended release) 1 patch(es) Topical 2 times a week progesterone (Prometrium) 1 cap once a day IMPORTANT: I, ( YIMI GARCIA ), have received the above patient education materials/instructions and have verbalized understanding. My questions have been answered. I understand I may receive a follow-up call from the Emergency Department staff regarding my health. If seen for an occupational injury or illness, I understand that work-related medical information may be released to my employer or employers account services representative. I understand that restrictions apply both on and off duty, but do not prevent me from performing reasonable self-cares or prescribed exercises. Yo, ( YMII GARCIA ), he recibido los materiales educativos/instrucciones para pacientes y he verbalizado mi entendimiento. Mis preguntas fueron contestadas. Entiendo que podr??a recibir shelby llamada de seguimiento por parte del personal del Departamento de Emergencias concerniente a mi dior. Si he sido atendido por shelby lesi??n o enfermedad ocupacional, comprendo que la informaci??n m??dica relacionada con el trabajo puede ser proporcionada a mi empleador o a un representante del mismo. Comprendo que existen restricciones tanto dentro daksha fuera del trabajo, bernabe no previenen que efect??e ejercicios razonables prescriptos o de autocuidado. Patient Signature - Firma Responsible Person Signature (as appropriate) [facility] YIMI GARCIA or Responsible Person has received this information and tells me that all questions have been answered. Provider Signature - [facility] Source: [facility] POWERCHART Document Id: [id number] Gracy Nascimento RErika. - 04/05/2009 1:53 PM CDT ED Depart Summary [facility] Emergency Department / Urgent Care Clinical Discharge Summary PERSON INFORMATION Name YIMI GARCIA Age 63 Years 1945 12:00 AM Sex Female Language [place]er PCP Marital Status Single Visit Id Visit Reason Urination painful; Urination painful; URINARY TRACT POSSIBLE INFECTION Specialty Enc Type Hospital Outpatient Med Service Emergency Medicine Referred by Track Group FIORE ED/FT Discharge 04/05/2009 1:53 PM Tracking Id [id number] Checkout 04/05/2009 1:53 PM Checkin 04/05/2009 12:22 PM Acuity 4 -Less Urgent Dispo Type Discharged to Home or Self Care Arrival 04/05/2009 12:22 PM Reg Status Complete LOS 000 01:31 Address: [address] [place] [phone] Comment: PROVIDER INFORMATION Provider Role Assigned Unassigned GRACY NASCIMENTO PRODUCE TEAM LEAD Nurse 04/05/2009 1:07 PM ZAHEER ANNE DO ED Provider 04/05/2009 1:25 PM VITALS INFORMATION Vital Sign Triage Latest Temp Oral Temp Axillary Temp Core 37.0 DegC 37.0 DegC 02 Sat Respiratory Rate Pulse Rate Peripheral Pulse Rate 76 bpm 76 bpm Apical Heart Rate Blood Pressure 130 mmHg / 66 mmHg 130 mmHg / 66 mmHg Comment: DIAGNOSIS Comment: ORDERS INFORMATION Start Time Order Type Status Stop Time Provider 04/05/2009 1:31 PM [facility] 04/05/2009 1:31 PM ZAHEER ANNE DO 04/05/2009 12:48 PM Urinalysis with Micro if Indicated EUCC Laboratory Completed 04/05/2009 1:42 PM ZAHEER ANNE DO MEDICAL INFORMATION Allergy Info: morphine; codeine Medication List: Medication/Strength Dose Route Frequency Indications/Special Instructions/Comments estradiol (Vivelle 0.05 mg/24 hours twice weekly transdermal film, extended release) 1 patch(es) Topical 2 times a week progesterone (Prometrium) 1 cap once a day Comment: DISCHARGE INFORMATION Discharge Disposition: Discharged to Home or Self Care Discharge Location: DEPART REASON INCOMPLETE INFORMATION Depart Action Incomplete Reason Diagnosis Unavailable PATIENT EDUCATION INFORMATION Instructions: DYSURIA, Uncertain Cause (Adult) Follow up: With: Address: When: Follow up with primary care provider Within As needed Comments: PHYS DOC NOTES Source: [facility] POWERCHART Document Id: [id number] documented in this encounter Nursing Notes Gracy Nascimento R.N. - 04/05/2009 1:08 PM CDT ED Primary Assessment ED Primary Assessment Entered On: 04/05/2009 13:09 CDT Performed On: 04/05/2009 13:08 CDT by GRACY NASCIMENTO RN Reason For Visit Diagnoses(Active) Urination painful Date: 04/05/2009 7:42 CDT ; Diagnosis Type: Reason For Visit ; Confirmation: Complaint of ; Classification: Medical ; Clinical Service: Emergency medicine ; Code: PNED ; Probability: 0 ; Diagnosis Code: [id number] Triage Mode of Arrival ED: Private vehicle Track: Medical Languages: [place] Pain Symptoms: Yes GRACY NASCIMENTO RN - 04/05/2009 13:08 CDT Allergy Allergies (Active) codeine Estimated Onset Date: Unspecified ; Reactions: vomiting ; Created By: MAYELIN GARCIA RN; Reaction Status: Active ; Category: Drug ; Substance: codeine ; Type: Allergy ; Updated By: MAYELIN GARCIA; Reviewed Date: 04/05/2009 13:08 CDT morphine Estimated Onset Date: Unspecified ; Reactions: vomiting ; Created By: MAYELIN GARCIA RN; Reaction Status: Active ; Category: Drug ; Substance: morphine ; Type: Allergy ; Updated By: MYLA GARCIA RN; Reviewed Date: 04/05/2009 13:08 CDT Respiratory Airway: Patent Respirations: Unlabored Respiratory Pattern: Regular GRACY NASCIMENTO RN - 04/05/2009 13:08 CDT Cardiovascular Heart Rhythm: Regular Skin Color: Normal for ethnicity Skin Description: Dry Skin Temperature: Warm GRACY NASCIMENTO RN - 04/05/2009 13:08 CDT Neurological Level of Consciousness: Alert Orientation: Oriented x 3 Characteristics of Speech: Clear GRACY NASCIMENTO RN - 04/05/2009 13:08 CDT ED Psychosocial Affect/Behavior: Calm Domestic Concerns: None GRACY NASCIMENTO RN - 04/05/2009 13:08 CDT Gastrointestinal Nutrition ED: Adequate GRACY NASCIMENTO RN - 04/05/2009 13:08 CDT /OB Assessment Patient Stated Symptoms: Frequency Urine Description: Clear Urine Color: Yellow GRACY NASCIMENTO RN - 04/05/2009 13:08 CDT Musculoskeletal Fall Prevention Education Provided: Yes GRACY NASCIMENTO RN - 04/05/2009 13:08 CDT Source: [facility] POWERCHART Document Id: [id number] CDT!30 Gracy Nascimento R.N. - 04/05/2009 1:00 PM CDT ED Primary Assessment ED Primary Assessment Entered On: 04/05/2009 13:00 CDT Performed On: 04/05/2009 13:00 CDT by GRACY NASCIMENTO RN Reason For Visit Diagnoses(Active) Urination painful Date: 04/05/2009 7:42 CDT ; Diagnosis Type: Reason For Visit ; Confirmation: Complaint of ; Classification: Medical ; Clinical Service: Emergency medicine ; Code: PNED ; Probability: 0 ; Diagnosis Code: [id number] Triage Mode of Arrival ED: Private vehicle Track: Medical Languages: [place] Pain Symptoms: Yes GRACY NASCIMENTO RN - 04/05/2009 13:12 CDT Allergy Allergies (Active) codeine Estimated Onset Date: Unspecified ; Reactions: vomiting ; Created By: MAYELIN GARCIA RN; Reaction Status: Active ; Category: Drug ; Substance: codeine ; Type: Allergy ; Updated By: MAYELIN GARCIA; Reviewed Date: 04/05/2009 13:08 CDT morphine Estimated Onset Date: Unspecified ; Reactions: vomiting ; Created By: MAYELIN GARCIA RN; Reaction Status: Active ; Category: Drug ; Substance: morphine ; Type: Allergy ; Updated By: MYLA GARCIA RN; Reviewed Date: 04/05/2009 13:08 CDT Respiratory Airway: Patent Respirations: Unlabored Respiratory Pattern: Regular GRACY NASCIMENTO RN - 04/05/2009 13:00 CDT Cardiovascular Heart Rhythm: Regular Skin Color: Normal for ethnicity Skin Description: Dry Skin Temperature: Warm GRACY NASCIMENTO RN - 04/05/2009 13:00 CDT Neurological Level of Consciousness: Alert Orientation: Oriented x 3 Characteristics of Speech: Clear GRACY NASCIMENTO RN - 04/05/2009 13:00 CDT ED Psychosocial Affect/Behavior: Calm Domestic Concerns: None GRACY NASCIMENTO RN - 04/05/2009 13:00 CDT Gastrointestinal Nutrition ED: Adequate NASCIMENTO, GRACY A RN - 04/05/2009 13:00 CDT Musculoskeletal Fall Prevention Education Provided: GRACY REED RN - 04/05/2009 13:00 CDT Source: [employer] Document Id: [id number] CDT!6 documented in this encounter ED Notes Gracy Nascimento R.N. - 04/05/2009 1:53 PM CDT ED Disposition Summary ED Disposition Summary Entered On: 04/05/2009 13:53 CDT Performed On: 04/05/2009 13:53 CDT by GRACY NASCIMENTO RN ED Disposition Summary Accompanied By: Alone Discharge From ED With: Home Med List GRACY NASCIMENTO RN - 04/05/2009 13:53 CDT Source: [place] Document Id: [id number] CDT!4 Conversion, Historical Provider Ser - 04/05/2009 12:41 PM CDT ED Triage Assessment ED Triage Assessment Entered On: 04/05/2009 12:48 CDT Performed On: 04/05/2009 12:41 CDT by MAYELIN GARCIA RN Reason For Visit Diagnoses(Active) Urination painful Date: 04/05/2009 7:42 CDT ; Diagnosis Type: Reason For Visit ; Confirmation: Complaint of ; Classification: Medical ; Clinical Service: Emergency medicine ; Code: PNED ; Probability: 0 ; Diagnosis Code: [id number] Triage Chief Complaint Description: Urgency for 3 days. Information Given By: Patient Accompanied By: Alone Mode of Arrival ED: Private vehicle Track: Medical Languages: [place] Pain Symptoms: Yes Vital Signs Assessed: Yes MAYELIN GARCIA RN - 04/05/2009 12:41 CDT Pain Pain Assessment Grid Pain 1 Location: Perineum Intensity: 6 Onset: Gradual Quality: Burning, Pressure MAYELIN GARCIA RN - 04/05/2009 12:41 CDT Vital Signs Temperature Core: 37.0DegC(Converted to: 98.6DegF) Peripheral Pulse Rate: 76bpm Systolic Blood Pressure: 130mmHg Diastolic Blood Pressure: 66mmHg NIBP Mean: 87mmHg BP Location: Right upper extremity SpO2: 98% Oxygen Therapy: Room air MAYELIN GARCIA RN - 04/05/2009 12:41 CDT ED Physician Notification Time ED Physician Notification Time: 04/05/2009 12:46 CDT MAYELIN GARCIA RN - 04/05/2009 12:41 CDT OTILIO DCP GENERIC CODE Tracking Acuity: 4 -Less Urgent Tracking Group: LASF ED/FT MAYELIN GARCIA RN - 04/05/2009 12:41 CDT Allergy Latex Screening: No MAYELIN GARCIA RN - 04/05/2009 12:41 CDT Allergies (Active) codeine Estimated Onset Date: Unspecified ; Reactions: vomiting ; Created By: MAYELIN GARCIA RN; Reaction Status: Active ; Category: Drug ; Substance: codeine ; Type: Allergy ; Updated By: MAYELIN GARCIA; Reviewed Date: 04/05/2009 12:47 CDT morphine Estimated Onset Date: Unspecified ; Reactions: vomiting ; Created By: MAYELIN GARCIA RN; Reaction Status: Active ; Category: Drug ; Substance: morphine ; Type: Allergy ; Updated By: MYLA GARCIA RN; Reviewed Date: 04/05/2009 12:47 CDT Source: [facility] [employer] Document Id: [id number] CDT!34 Conversion, Historical Provider Ser - 04/05/2009 12:22 PM CDT 1-16EUCC MR# [id number] [facility] SUBJECTIVE This 63-year-old female is seen complaining of urinary frequency and urgency of 3 days duration accompanied by some intermittent lower abdominal discomfort. She notes the symptoms seem worse at night. Occasionally, she notes some mild dysuria at the end of urination. No hematuria or fever. She has hadsome preexisting bilateral lower back pain. She has a past history of UTIs and the last episode was December 2008. ADVERSE DRUG REACTIONS 1. Codeine. 2. Morphine. MEDICATIONS Reviewed and reconciled with the patient. OBJECTIVE Blood pressure: 130/66. Pulse: 76. Respirations: 16. Temperature: 37.0. Exam revealed the patient demetrio in no acute distress. Back: There was no cva tenderness bilaterally. Abdominal exam: Revealed mild suprapubic tenderness. No distension, guarding, or rebound. Urinalysis revealed less than 6 white cells and red cells with negative nitrite and leukocyte esterase tests. No glucosuria. ASSESSMENT Urinary frequency and urgency. PLAN Patient was advised to refrain from caffeine and carbonated beverages. She was told to see a primarycare physician next week if the problem persists. FINAL DIAGNOSIS Urinary frequency and urgency. Zaheer Anne DO//hailey #[id number] cc: Source: [facility] FSHDICTAPHONESYS Document Id: [id number] documented in this encounter Plan of Treatment Upcoming Encounters Date Type Specialty Care Team Description 09/08/2022 Procedure visit Aesthetic Medicine and Juanita Vaz, Surgery GRADE CHECKER, C.N.P. [address] [place] [phone] (Charlotte bentley) 09/08/2022 Comprehensive Visit Aesthetic Medicine Lucero Mckeon Surgery MJayda, Ph.D. [address] [place] [address] (Charlotte bentley) documented as of this encounter Visit Diagnoses Not on filedocumented in this encounter
--- OUTSIDE RECORDS SUMMARY | 2022-07-30 20:39 | XMS_ITS | Encounter Summary ---
:1945 Author Organization [facility] Address [address] [place] [address] Care Team Providers Name Role Phone Elsewhere, Pcp Primary Care Provider Unavailable Encounter Details Date Type Department Care Team Description 05/06/2018 Hospital Encounter Outpatient Priscila sandoval (Fibroid) Procedure Center Kaleigh herrera Uterus [place], M.D. [place] [address] [facility] [address] [place] [phone] Social History Tobacco Use Types Packs/Day Years [...] CINNAMON Take 2 tablets by 0 019 [id number] ORAL mouth daily. garlic tablet Take 1 tablet by 0 05/24/201511/30 mouth 3 (three) times a day. tricia root (TRICIA Take 1 capsule by 0 5 11/30/2018 EXTRACT ORAL) mouth 3 (three) times a day. glucosamine/msm/csa/mega/h Take 1 tablet by 0 05/0511/30/2018 rb115 mouth 2 (two) times (MALFKYCFXP-EVWMT-SQC-MEGA a day. -115HC ORAL) hydrocortisone Insert 1 [...] mg 0 11/30/2018 powder UNABLE TO FIND [facility] 200mg 0 08/05 valacyclovir HCl (VALTREX Take [...] visit Aesthetic Medicine and Juanita Vaz, Surgery HARD ROCK MINER BLASTING, C.N.P. [address] [place] [address] (Wo rk) 09/08/2022 Comprehensive Visit Aesthetic Medicine Lucero Mckeon, Surgery M.D., Ph.D. [address] [place] [address] (Wo rk) documented as of this encounter [...] Component Value Ref Test Analysis Performed At [facility] gist Range Method Time Signature Gross Description A. ??Received fresh labeled with patient name, alanna hdez 05/12/2018 [facility] number and labeled as uterine contents is a 0.5 x 0.4 x 2:22 PM LABORATORIES - 0.2 cm aggregate of hemorrhagic irregular tissue fragments . [facility] All submitted for permanent sections only. Grossed by [place] [id number]. Report Frankie Do M.D. [phone] [facility] electronically I verify that I have examined all relevant slides/ma terials 2:22 PM LABORATORIES - signed by for the specimen(s) and rendered or confirmed the diagnosi s. [facility] 05/12/2018 [facility] 2:22 PM LABORATORIES - [facility] Block Summary A Uterine contents 05/12/2018 [facility] Emerald LINIC A1 Uteriine contents 2:22 PM LABORATOR IES - [facility] Interpretation FINAL DIAGNOSIS 05/12/2018 [facility] CLI MUKUL A. ??Uterine contents, curettage: ??Scant fragments of live ign 2:22 PM LABORATORIES - squamous epithelium and degenerated endometrium. CDT [facility] Specimen (Source) Anatomical Collection Method Collection Time Re ceived Time Location / / Volume Laterality Tissue (Uterus) 05/06/2018 9:54 AM CDT Narrative This result has an attachment that is no t available. Kaleigh Francois M.D. LAB SURG PATH ORDERABL ES Performing Organization Address City/State/ZIP Code Phon e Number [facility] LABORATORIES - [address] [place], [place] [address] [facility] documented in this encounter Visit Diagnoses Diagnosis [...] injection documented in this encounter Care Teams Quality Assurance Tech Relationship Specialty Start Date End Date Elsewhere, Pcp PCP - General Internal Medicine 07/03/17 documented as of this encounter
--- OUTSIDE RECORDS SUMMARY | 2022-07-30 20:39 | XMS_ITS | Encounter Summary ---
:1945 Author Organization [facility] Address [address] [place] [address] Care Team Providers Name Role Phone Elsewhere, Pcp Primary Care Provider Unavailable Encounter Details Date Type Department Care Team Description 04/15/2018 Hospital Encounter Department of Ángel Sidhu Creatinine Laboratory Medicine Francesca Perera and Pathology, [facility] in [place], [place] [address] [place] [address] Social History Tobacco Use Types Packs/Day Years [...] or relatives? How often do you attend mormonism or More than 4 times per year 01/28/2021 orthodox services? Do you belong to any clubs or Yes 01/28/2021 organizations such as mormonism groups, unions, fraternal or athletic groups, or [...] 08/2 10/201411/30/2018 rb115 mouth 2 (two) times (RGXRFUUXZK-CVSCL-KAY-ASHLYN a day. -115HC ORAL) hydrocortisone Insert 1 [...] visit Aesthetic Medicine and Juanita Vaz, Surgery TAX ACCOUNTANT, C.N.P. [address] [place] [address] (Wo rk) 09/08/2022 Comprehensive Visit Aesthetic Medicine and Lucero Pritchard, Surgery M.D., Ph.D. [address] [place] [address] (Wo rk) documented as of this encounter [...] PM CDT) athologist Signature Microscopy Normal 04/15/2018 [facility] 2:[address] [facility] Specimen Anatomical Collection Method Collection Time Receive d Time (Source) Location / / Volume Laterality Urine 04/15/2018 1:58 PM 8 1:58 CDT PM CDT Airam Amato M.D., Ph.D. LAB URINE ORDERABLES Performing Organization Address City/State/ZIP Code Phon e Number [facility] - [address] [place], [place] [address] [facility] (ABNORMAL) Microalbumin, Random, Urine (04/15/2018 1:58 PM CDT) athologist Signature Microalbumin <5.0 mg/L 04/15/2018 [facility] 2:[address] [facility] Comment: ----ADDITIONAL INFORMATION---- This test has been modified from the man ufacturer's instructions. Its performance characteri stics were determined by [facility] in a manner co nsistent with CLIA requirements. This test has not bee n cleared or approved by the U.S. Food and Drug Admin istration. Creatinine 15 mg/dL 04/15/2018 2:26 PM [facility] CDT LAB[facility]ATORIES [facility] S Albumin/Creatinine <33 (H) <25 mg/g 04/15/2018 2:26 PM [facility] Ratio CDT LABORATORIES [facility] Comment: This ratio may not correspond with [...] City/State/ZIP Code Phon e Number [facility] - [address] [place], [place] [address] [facility] (ABNORMAL) Urinalysis with Microscopic (04/15/2018 1:58 PM CDT) [facility] gist Method Time Signature Source Midstream 04/15/2018 [facility] 1:[address] [facility] Appearance Normal Normal 04/15/2018 [facility] 2:[address] [facility] Osmolality, U 91 (L) 150 - 1150 04/15/2018 [facility] mOsm/kg 3:[address] [facility] pH, U 5.8 4.5 - 8.0 04/15/2018 [facility] 3:[address] [facility] Comment: ----ADDITIONAL INFORMATION---- This test was developed and its performa nce characteristics determined by [facility] in a manner co nsistent with CLIA requirements. This test has not bee n cleared or approved by the U.S. Food and Drug Admin istration. Glucose <2 0 - 15 mg/dL 04/15/2018 2:26 PM CDT [facility] Protein, U <4 <26 mg/dL 04/15/2018 2:26 PM CDT [facility] Comment: ----ADDITIONAL INFORMATION---- On 03/30/2017 the total protein assay me thod changed resulting in approximately a 15% increase in prote in values. Protein/Osmolality <0.44 (H) <0.42 Ratio 04/15/2018 3:26 PM [facility] Comment: ----ADDITIONAL INFORMATION---- On 03/30/2017 the total protein assay me thod changed resulting in approximately a 15% increase in prote in values. Predicted 24 Hr <317 mg/24 h 04/15/2018 3:26 PM [facility] Protein CDT LABORATORIES - [facility] S Predicted Range <1284 mg/24 h 04/15/2018 3:26 PM [facility] CDT LABORATORIES - [facility] Hemoglobin, QL Negative Negative 04/15/2018 2:41 PM [facility] CDT [facility]ATORIES - [facility] Specimen Anatomical Collection Method Collection Time Receive d Time (Source) Location / / Volume Laterality Urine (Urine, 04/15/2018 1:58 PM 04/15/20 1:58 Clean Catch) CDT PM CDT Ángel Sidhu M.D. LAB URINE ORDERABLES Performing Organization Address City/State/ZIP Code Phon e Number [facility] - [address] [place], [place] [address] [facility] documented in this encounter Visit Diagnoses Diagnosis Elevated Creatinine documented in this encounter Care Teams Gin Feeder Relationship Specialty Start Date End Date Elsewhere, Pcp PCP - General Internal Medicine 07/03/17 documented as of this encounter
--- OUTSIDE RECORDS SUMMARY | 2022-07-30 20:39 | XMS_ITS | Encounter Summary ---
:1945 Author Organization [facility] Address [address] [place] [address] Care Team Providers Name Role Phone Elsewhere, [...] visit Aesthetic Medicine and Juanita Vaz, Surgery APPLE TURNER, C.N.P. [address] [place] [address] (Wo rk) 09/08/2022 Comprehensive Visit Aesthetic Medicine and Lucero Pritchard, Surgery Francesca, Ph.D. [address] [place] [phone] (Wo rk) documented as of this encounter Visit Diagnoses Not on filedocumented in this encounter Care Teams Manager Employee Benefits Relationship Specialty Start Date End Date Elsewhere, Pcp PCP - General Internal Medicine 07/03/17 documented as of this encounter
--- OUTSIDE RECORDS SUMMARY | 2022-07-30 20:39 | XMS_ITS | Encounter Summary ---
:1945 Author Organization [facility] Address [address] [place] [address] Care Team Providers Name Role Phone Elsewhere, Pcp Primary Care Provider Unavailable Reason for Visit Outpatient (Routine) - Closed Specialty Diagnoses / Procedures Referred By Contact Refer red To Contact Nutrition Diagnoses Elevated Creatinine Ángel Sidhu M.D. [address] [address] Referral ID Status Reason Start Date Expiration Date Visits Requ ested Visits Authorized [id number] Closed 04/15/2018 04/15/2019 1 1 Encounter Details Date Type Department Care Team Description 04/25/2018 Clinical Support Department of Marques Sampson Nutrition [place] RDN, LD [address] [place] [address] Social History Tobacco Use Types Packs/Day Years [...] or relatives? How often do you attend adventist or More than 4 times per year 01/28/2021 anabaptist services? Do you belong to any clubs or Yes 01/28/2021 organizations such as adventist groups, unions, fraternal or athletic groups, or [...] slept in a senior living (including now)? Sex Assigned at Date Recorded [...] and vinegar dressing, includes soy milk or japanese yogurt Afternoon snack: fruit if anything. Drinks [...] Equation Calculations: 77.7 kg Total Calorie Needs: 7530-9039 calories Estimated Protein Needs (1): 62 to Estimated Protein Needs(2): 78 NUTRITION DIAGNOSIS Food- and nutrition-related knowledge deficit related to no prior exposure to specific nutritional guidelines for hypertension, mild chronic kidney disease as evidenced by elevated blood pressure and creatinine. Nutrition Prescription/Recommendation 9621-2698 mg sodium DASH eating plan INTERVENTION Education: Blood pressure control using the DASH eating plan. MONITORING AND EVALUATION: Nutrition parameter to monitor: Food intake Desired Outcome: Improve blood pressure Patient Goal(s): 0650-3698 mg sodium DASH eating plan FOLLOW UP PLAN: Patient will call to schedule follow-up appointment if desired Time spent with patient (minutes): 45 documented in this encounter Plan of Treatment Upcoming Encounters Date Type Specialty Care Team Description 09/08/2022 Procedure visit Aesthetic Medicine and Juanita Vaz, Surgery STOCK SELECTOR, C.N.P. [address] [place] [address] (Charlotte bentley) 09/08/2022 Comprehensive Visit Aesthetic Medicine and Lucero Pritchard, Surgery M.Norma, Ph.D. [address] [place] [phone] (Charlotte bentley) documented as of this encounter Visit Diagnoses Diagnosis Elevated Creatinine documented in this encounter Care Teams Alteration Worker Relationship Specialty Start Date End Date Elsewhere, Pcp PCP - General Internal Medicine 07/03/17 documented as of this encounter
--- OUTSIDE RECORDS SUMMARY | 2022-07-30 20:39 | XMS_ITS | Encounter Summary ---
:1945 Author Organization [facility] Address [address] [place] [address] Care Team Providers Name Role Phone Unavailable [...] 08/2 10/201411/30/2018 rb115 mouth 2 (two) times (PEHRMUZDNZ-ASZUD-BFP-ASHLYN a day. -115HC ORAL) hydrocortisone Insert 1 [...] Aesthetic Medicine and Juanita Vaz, Surgery DOG TRAINER, C.N.P. [address] [place] [address] (Charlotte bentley) 09/08/2022 Comprehensive Visit Aesthetic Medicine Lucero Mckeon, Surgery M.DAnali, Ph.D. [address] [place] [address] (Charlotte bentley) documented as of this encounter Visit Diagnoses Not on filedocumented in this encounter
--- OUTSIDE RECORDS SUMMARY | 2022-07-30 20:39 | XMS_ITS | Encounter Summary ---
:1945 Author Organization [facility] Address [address] [place] [address] Care Team Providers Name Role Phone Unavailable Primary Care Provider Unavailable Encounter Details Date Type Department Care Team Description 06/24/2016 Hospital Encounter [facility] Kira Tang, PAnaliAAnali-CAnali [address] [place] [address] [phone] (Wo rk) Social History Tobacco Use [...] slept in a senior care (including now)? Sex Assigned at Date Recorded [...] 06/24/2016 11:47 AM CDT ED Discharge Instructions [address] [address] Name: IMELDA GARCIA Date of : 1945 12:00 AM Visit Date: 06/24/2016 11:34 AM [facility] Number: [id number] Address: [address] [place] [phone] Primary Care Provider: IMPORTANT: [facility] in [place] would like to thank you for allowing [...] Lanacaine cream (contains benzocaine and is available aozb-hae-mdlzwti) will reduce itching. If large areas of [...] on one side of the face h?? [phone] [facility], [address] [place] [address], [place] [address]. All rights reserved. This information is not [...] if you dont have one. Go to [email or web address] and click on Create Your Account. Then, follow the directions to complete the online form. Youll be asked for your [facility] number which you can find at the [...] be released to my employer or employers dental sales representative. I understand that restrictions apply both [...] arrange a ride home with a responsible constitution party. Patient Signature or Responsible Green Party/Relationship Date Time IMELDA GARCIA or Responsible Person [...] be released to my employer or employers dental sales representative. I understand that restrictions apply both [...] arrange a ride home with a responsible constitution party. Patient Signature or Responsible Green Party/Relationship Date Time IMELDA GARCIA or Responsible Person has received this information and tells me that all questions have been answered. Provider Signature Date Time This document has images extracted. Please consider using [employer] for all your patient education needs. Source: [facility] Document Id: [id number] Rossy Brooks R.N. - 06/24/2016 11:47 AM CDT ED Depart Summary [facility] Emergency Department Clinical Discharge Summary PERSON INFORMATION Name IMELDA GARCIA Age 70 Years 1945 12:00 AM Sex Female Language Grenadian PCP Marital Status Single Visit Id Visit Reason Insect bite and/or sting; INSECT BITE Specialty Enc Type Emergency Med Service Emergency Medicine Referred by [facility] ED/FT Discharge 06/24/2016 11:47 AM Tracking Id [id number] Checkout 06/24/2016 11:47 AM Checkin 06/24/2016 11:34 AM Acuity 5 -Non Urgent Dispo Type * Discharged to Home or Self Care Arrival 06/24/2016 11:34 AM Reg Status LOS 000 00:13 Address: [address] [place] [phone] Comment: PROVIDER INFORMATION Provider Role Provider Contact Time ALBA SWEET MA ED Medical Sales Associate 06/24/16 11:41 VAZQUEZ TANG PA-C ED Provider 06/24/16 11:41 ROSSY BROOKS PLUNKET NURSE Nurse 06/24/16 11:45 DIAGNOSIS Comment: ORDERS INFORMATION [...] primary care provider Within As Needed Source: [facility] Document Id: [id number] documented in this encounter Medications at Time [...] 08/2 10/201411/30/2018 rb115 mouth 2 (two) times ([id number]-DMXXO-ECV-MEGA a day. -115HC ORAL) hydrocortisone Insert 1 [...] Tang P.A.-C. - 06/24/2016 12:00 AM CDT [id number] This is a 70-year-old female with a [...] TANG PA-C On: 06/29/2016 07:43 PM Source: [facility] MHSDOLBEYNONRADSYS Document Id: [id number] documented in this encounter ED Notes Rossy [...] BROOKS RN - 06/24/2016 11:47 CDT Source: [facility] POWERCHART Document Id: [id number] CDT!6 Rossy Brooks R.N. - 06/24/2016 11:45 [...] PNED ; Probability: 0 ; Diagnosis Code: [id number] Triage Mode of Arrival ED : Private vehicle Track : Medical Languages : Grenadian Treatments Prior to Arrival : None Is [...] BROOKS RN - 06/24/2016 11:45 CDT Source: [facility] POWERCHART Document Id: [id number] CDT!39 Coral Tillman R.N. - 06/24/2016 11:37 [...] PNED ; Probability: 0 ; Diagnosis Code: [id number] Triage Chief Complaint Description : insect bite to left shoulder and older ones in that same area, states has a bulls eye appearence Information Given By : Patient Present in Room During Exam/Procedure : Alone Mode of Arrival ED : Private vehicle Track : Medical Languages : Grenadian Patient Informed of Triage Location : Urgent [...] CORAL TILLMAN RN - 06/24/2016 11:37 CDT [place] Coma Eye Opening Response Breann : Spontaneously Best Verbal Response [place] : Oriented Best Motor Response Breann : Obeys simple commands [place] Coma Score : 15 CORAL TILLMAN RN - 06/24/2016 11:37 CDT Pain Assessment Pain Symptoms : Yes CORAL TILLMAN RN - 06/24/2016 11:37 CDT Pain Scale Pain Scale Verbal 0-10 : Open CORAL TILLMAN RN - 06/24/2016 11:37 CDT Pain Pain [...] RN; Reviewed Date: 06/24/2016 11:40 CDT Source: [facility] Document Id: [id number] CDT!42 documented in this encounter Miscellaneous Notes Miscellaneous - Conversion, Historical Provider Ser - 06/24/2016 11:47 AM CDT Coding Summary-Paper Based CODING DATE: 07/01/2016 [facility] STATUS: * Discharged to Home or Self [...] MINOR Date Saved: 07/01/2016 12:34 pm Source: [facility] Document Id: [id number] documented in this encounter Plan of Treatment Upcoming Encounters Date Type Specialty Care Team Description 09/08/2022 Procedure visit Aesthetic Medicine and Juanita Vaz, Surgery PCAS, C.N.P. [address] [place] [address] (Wo rk) 09/08/2022 Comprehensive Visit Aesthetic Medicine and Macho, Lucero Decker Surgery Francesca, Ph.D. [address] [place] [phone] (Wo rk) documented as of this encounter Visit Diagnoses Not on filedocumented in this encounter
--- OUTSIDE RECORDS SUMMARY | 2022-07-30 20:39 | XMS_ITS | Encounter Summary ---
:1945 Author Organization [facility] Address [address] [place] [address] Care Team Providers Name Role Phone Elsewhere, Pcp Primary Care Provider Unavailable Encounter Details Date Type Department Care Team Description 04/25/2018 Hospital Encounter Department of Ángel Sidhu jimena Creatinine; Radiology, Marino Perera M.D. Hypertensio n And Chronic Kidney Disease Stage 1 To 4 [facility] in [place], [place] [address] [place] [address] Social History Tobacco Use Types Packs/Day Years [...] CINNAMON Take 2 tablets by 0 019 ONUV-WESWCOTW-KOJ ORAL mouth daily. garlic tablet Take 1 tablet by 0 05/24/201511/30 mouth 3 (three) times a day. tricia root (TRICIA Take 1 capsule by 0 5 11/30/2018 EXTRACT ORAL) mouth 3 (three) times a day. glucosamine/msm/csa/ashlyn/h Take 1 tablet by 0 05/0511/30/2018 rb115 mouth 2 (two) times ([id number]-YJAAK-PMF-ASHLYN a day. -115HC ORAL) hydrocortisone Insert 1 [...] mg 0 11/30/2018 powder UNABLE TO FIND [facility] 200mg 0 08/05 valacyclovir HCl (VALTREX Take by mouth as 0 02/16/2019 ORAL) needed. documented as of this encounter Plan of Treatment Upcoming Encounters Date Type Specialty Care Team Description 09/08/2022 Procedure visit Aesthetic Medicine and Juanita Vaz, Surgery PUBLIC HEALTH INFORMATICIAN, C.N.P. [address] [place] [address] (Wo rk) 09/08/2022 Comprehensive Visit Aesthetic Medicine and [facility] [place] [facility], Andreia Palacios M.D., Ph.D. [address] [place] [phone] (Wo rk) documented as of this encounter [...] 4 documented in this encounter Care Teams Designated Broker Relationship Specialty Start Date End Date Elsewhere, Pcp PCP - General Internal Medicine 07/03/17 documented as of this encounter
--- OUTSIDE RECORDS SUMMARY | 2022-07-30 20:39 | XMS_ITS | Encounter Summary ---
:1945 Author Organization [facility] Address [address] [place] [address] Care Team Providers Name Role Phone Unavailable [...] 08/2 10/201411/30/2018 rb115 mouth 2 (two) times (XZEGDGKMNN-IBTRL-UEO-ASHLYN a day. -115HC ORAL) hydrocortisone Insert 1 [...] visit Aesthetic Medicine and Juanita Vza, Surgery MOSQUITO SPRAYER, C.N.P. [address] [place] [phone] (Charlotte bentley) 09/08/2022 Comprehensive Visit Aesthetic Medicine Lucero Mckeon, Surgery M.DAnali, Ph.D. [address] [place] [phone] (Charlotte bentley) documented as of this encounter Visit Diagnoses Not on filedocumented in this encounter
--- OUTSIDE RECORDS SUMMARY | 2022-07-30 20:39 | XMS_ITS | Encounter Summary ---
:1945 Author Organization [facility] Address [address] [place] [address] Care Team Providers Name Role Phone Unavailable [...] 08/2 10/201411/30/2018 rb115 mouth 2 (two) times (NBGQOTBEDA-IGOYB-ZIR-ASHLYN a day. -115HC ORAL) hydrocortisone Insert 1 [...] visit Aesthetic Medicine and Juanita Vaz, Surgery DISTRICT SUPERVISOR, C.N.P. [address] [place] [phone] (Charlotte bentley) 09/08/2022 Comprehensive Visit Aesthetic Medicine Lucero Mckeon Surgery MJayda, Ph.D. [address] [place] [phone] (Charlotte bentley) documented as of this encounter Visit Diagnoses Not on filedocumented in this encounter
--- OUTSIDE RECORDS SUMMARY | 2022-07-30 20:39 | XMS_ITS | Encounter Summary ---
:1945 Author Organization [facility] Address [address] [place] [address] Care Team Providers Name Role Phone Elsewhere, Pcp Primary Care Provider Unavailable Reason for Referral Outpatient (Routine) - Closed Specialty Diagnoses / Procedures Referred By Contact Refer red To Contact Nephrology and Diagnoses Elevated Creatinine Ángel Sidhu, [facility] Hypertension M.D. [address] [place] [phone] Referral ID Status Reason Start Date Expiration Date Visits Requ ested Visits Authorized [id number] Closed 04/15/2018 04/15/2019 1 1 Outpatient (Routine) - Closed Specialty Diagnoses / Procedures Referred By Contact Refer red To Contact Nutrition Diagnoses Elevated Creatinine Ángel Sidhu M.D. [address] [phone] Referral ID Status Reason Start Date Expiration Date Visits Requ ested Visits Authorized [id number] Closed 04/15/2018 04/15/2019 1 1 Specialty Diagnoses / Procedures Referred By Contact Refer red To Contact Airam Amato M.D. , Ph.D. [address] [phone] Referral ID Status Reason Start Date Expiration Date Visits Requ ested Visits Authorized Reason for Visit Appointment Request (Routine) - Closed Specialty Diagnoses / Procedures Referred By Contact Refer red To Contact Nephrology and Hypertension Referral ID Status Reason Start Date Expiration Date Visits Requ jf Visits Authorized [id number] Closed 04/11/2018 04/11/2019 1 1 Encounter Details Date Type Department Care Team Description 04/15/2018 Comprehensive Visit Division of Airam Amato Elevated Creatinine (Primary Dx); Nephrology and C MJayda, Hypertension And Chronic Kidney Disease Stage 1 To 4 Hypertension in Ph.D. [place], [place] [address] [facility] [address] [place] [phone] Social History Tobacco Use Types Packs/Day Years [...] Patient has recently been seen at the [facility] for further cardiovascular health and preventative medicine. [...] purposes and have her meet with our retail operations specialist here. Gave her pamphlets and handouts regarding [...] visit Aesthetic Medicine and Juanita Vaz, Surgery OUTPLACEMENT CONSULTANT, C.N.P. [address] [place] [phone] ([place] rk) 09/08/2022 Comprehensive Visit Aesthetic Medicine Lucero Mckeon, Surgery MJayda, Ph.D. [address] [place] [phone] ([place] rk) Scheduled Referrals Name Type Priority [...] P athologist Signature Microalbumin <5.0 mg/L 04/15/2018 [facility] 2:26 PM CDT LABORATORIES - [facility] Comment: ----ADDITIONAL INFORMATION---- This test has been modified from the man ufacturer's instructions. Its performance characteri stics were determined by [facility] in a manner co nsistent with CLIA requirements. This test has not bee n cleared or approved by the U.S. Food and Drug Admin istration. Creatinine 15 mg/dL 04/15/2018 2:26 PM [facility] CDT LABORATORIES [facility] Albumin/Creatinine <33 (H) <25 mg/g 04/15/2018 2:26 PM [facility] Ratio CDT [facility] Comment: This ratio may not [...] Organization Address City/State/ZIP Code Phon e Number [facility] LABORATORIES - [address] (ABNORMAL) Urinalysis with Microscopic (04/15/2018 1:58 PM CDT) [facility] gist Method Time Signature Source Midstream 04/15/2018 [facility] 1:58 PM CDT [facility] Appearance Normal Normal 04/15/2018 [facility] 2:26 PM CDT [facility] Osmolality, U 91 (L) 150 - 1150 04/15/2018 [facility] mOsm/kg 3:26 PM CDT [facility] pH, U 5.8 4.5 - 8.0 04/15/2018 [facility] 3:26 PM CDT [facility] Comment: ----ADDITIONAL INFORMATION---- This test was developed and its performa nce characteristics determined by [facility] in a manner co nsistent with CLIA requirements. This test has not bee n cleared or approved by the U.S. Food and Drug Admin istration. Glucose <2 0 - 15 mg/dL 04/15/2018 2:26 PM CDT [facility] Protein, U <4 <26 mg/dL 04/15/2018 2:26 PM CDT [facility] [employer] [facility] Comment: ----ADDITIONAL INFORMATION---- On 03/30/2017 the total protein assay me thod changed resulting in approximately a 15% increase in prote in values. Protein/Osmolality <0.44 (H) <0.42 Ratio 04/15/2018 3:26 PM [facility] Comment: ----ADDITIONAL INFORMATION---- On 03/30/2017 the total protein assay me thod changed resulting in approximately a 15% increase in prote in values. Predicted 24 Hr <317 mg/24 h 04/15/2018 3:26 PM [facility] Protein T [facility] Predicted Range <1284 mg/24 h 04/15/2018 3:26 PM [facility] Hemoglobin, QL Negative Negative 04/15/2018 2:41 PM [facility] Specimen Anatomical Collection Method Collection Time Receive d Time (Source) Location / / Volume Laterality Urine (Urine, 04/15/2018 1:58 PM 04/15/20 18 1:58 Clean Catch) CDT PM CDT Ángel Sidhu M.D. LAB URINE ORDERABLES Performing Organization Address City/State/ZIP Code Phon e Number [facility] - [address] [place], [place] [address] [facility] Cystatin C with Estimated GFR (04/15/2018 12:58 PM CDT) P athologist Signature eGFR by 79 >60 04/15/2018 [facility] Cystatin C mL/min/BSA 4:24 PM CDT [facility] Comment: ----ADDITIONAL INFORMATION---- Cystatin C-based eGFR may differ substan tially from creatinine-based eGFR in patients with a bnormal muscle mass or acutely changing renal function. ??Pl ease interpret together with relevant clinical features. Cystatin C, S 0.91 0.68 - 1.36 mg/L 04/15/2018 4:[address] [facility] PUS Specimen Anatomical Collection Method Collection Time Receive d Time (Source) Location / / Volume Laterality Blood (Blood, 04/15/2018 12:58 04/15/2018 1:53 Venous) PM CDT PM CDT Ángel Sidhu M.D. LAB BLOOD ADD-ON Performing Organization Address City/State/ZIP Code Phon e Number [facility] LABORATORIES - [address] [place], [place] [address] [facility] documented in this encounter Visit Diagnoses Diagnosis Elevated Creatinine - Primary Hypertension And Chronic Kidney Disease Stage 1 To 4 Elevated Creatinine Hypertension And Chronic Kidney Disease Stage 1 To 4 documented in this encounter Care Teams Change Manager Relationship Specialty Start Date End Date Elsewhere, Pcp PCP - General Internal Medicine 07/03/17 documented as of this encounter
--- OUTSIDE RECORDS SUMMARY | 2022-07-30 20:39 | XMS_ITS | Encounter Summary ---
:1945 Author Organization [facility] Address [address] [place] [address] Care Team Providers Name Role Phone Elsewhere, Pcp Primary Care Provider Unavailable Reason for Referral Outpatient (Routine) - Closed Specialty Diagnoses / Procedures Referred By Contact Refer red To Contact Obstetrics and Aranza Francois Linsey on Gynecology Kaleigh Pulliam M.D. [address] [place] [phone] Referral ID Status Reason Start Date Expiration Date Visits Requ ested Visits Authorized [id number] Closed 04/11/2018 04/11/2019 1 1 Scheduling Instructions With SKL or ICG for fibroid follow up Reason for Visit Reason Onset Date Comments Telphone 04/04/2018 Encounter Details Date Type Department Care Team Description 04/04/2018 Clinical Communication Department of Dao Francois Obstetrics and Kaleigh Pulliam M.D. Gynecology in [address] [place] [address] [place] [phone] [place], [place] [phone] (Work) [phone] Social History Tobacco Use Types Packs/Day Years [...] visit Aesthetic Medicine and Juanita Vaz, Surgery DINKEY ENGINE FIRER, C.N.P. [address] [place] [phone] (Wo mc) 09/08/2022 Comprehensive Visit Aesthetic Medicine Lucero Mckeon, Surgery M.D., Ph.D. [address] [place] [phone] ([place] bentley) Scheduled Referrals Name Type Priority [...] Uterus documented in this encounter Care Teams English Division Chair Relationship Specialty Start Date End Date Elsewhere, Pcp PCP - General Internal Medicine 07/03/17 documented as of this encounter
--- OUTSIDE RECORDS SUMMARY | 2022-07-30 20:39 | XMS_ITS | Encounter Summary ---
:1945 Author Organization [facility] Address 200 [place] [address] Care Team Providers Name Role Phone Elsewhere, Pcp Primary Care Provider Unavailable Reason for Visit Outpatient (Routine) - Closed Specialty Diagnoses / Procedures Referred By Contact Refer red To Contact Obstetrics and Aranza Francoisi on Gynecology Kaleigh Pulliam M.D. 200 [place] [address] Referral ID Status Reason Start Date Expiration Date Visits Requ ested Visits Authorized [id number] Closed 04/11/2018 04/11/2019 1 1 Encounter Details Date Type Department Care Team Description 04/15/2018 Office Visit Department of Annemarie Francois Uterine Obstetrics and Kaleigh Pulliam M.D. Endometrium (Primary Gynecology in [address] [place] [address] Dx) [place], [place] [address] [place] [phone] [place], [place] [phone] (Work) [phone] Social History Tobacco Use Types Packs/Day Years [...] 01/28/2021 organizations such as jew groups, unions, fraOQO or athletic groups, or school groups? How [...] visit Aesthetic Medicine and Juanita Vaz, Surgery HAND STITCHER, C.N.P. [address] [place] [phone] ([place] bentley) 09/08/2022 Comprehensive Visit Aesthetic Medicine Lucero Mckeon, Surgery M.Norma, Ph.D. [address] [place] [phone] ([place] bentley) documented as of this encounter Visit Diagnoses Diagnosis Thickened Uterine Endometrium - Primary documented in this encounter Care Teams Electrical Appliance Servicer Relationship Specialty Start Date End Date Elsewhere, Pcp PCP - General Internal Medicine 07/03/17 documented as of this encounter
--- OUTSIDE RECORDS SUMMARY | 2022-07-30 20:39 | XMS_ITS | Encounter Summary ---
:1945 Author Organization [facility] Address [address] [place] [address] Care Team Providers Name Role Phone Elsewhere, Pcp Primary Care Provider Unavailable Encounter Details Date Type Department Care Team Description 04/15/2018 Hospital Encounter Department of Ángel Sidhu Creatinine Laboratory Medicine Francesca Perera and Pathology, [facility] in [place], [place] [address] [place] [address] Social History Tobacco Use Types Packs/Day Years [...] CINNAMON Take 2 tablets by 0 019 [id number] ORAL mouth daily. fluticasone propionate Inhale 1 Inhaler 2 0 05/2404/25/2018 (FLOVENT HFA INHL) (two) times a day. garlic tablet Take 1 tablet by 0 05/24/201511/30 mouth 3 (three) times a day. tricia root (TRICIA Take 1 capsule by 0 5 11/30/2018 EXTRACT ORAL) mouth 3 (three) times a day. glucosamine/msm/csa/ashlyn/h Take 1 tablet by 0 05/0511/30/2018 rb115 mouth 2 (two) times ([id number]-IVH-ASHLYN a day. -115HC ORAL) hydrocortisone Insert 1 [...] mg 0 11/30/2018 powder UNABLE TO FIND [place] 200mg 0 08/05 valacyclovir HCl (VALTREX Take by mouth as 0 02/16/2019 ORAL) needed. valsartan (DIOVAN) 160 mg Take 160 mg by mouth 0 04/25/2018 tablet daily. documented as of this encounter Plan of Treatment Upcoming Encounters Date Type Specialty Care Team Description 09/08/2022 Procedure visit Aesthetic Medicine and Juanita Vaz, Surgery COSTUME DRAPER, CAnaliN.P. [address] [place] [phone] ([place] rk) 09/08/2022 Comprehensive Visit Aesthetic Medicine and Lucero Pritchard, Surgery MJayda, Ph.D. [address] [place] [phone] ([place] rk) documented as of this encounter Procedures Procedure Name Priority Date/Time Associated Diagnosis Comme nts CYSTATIN C WITH Routine 04/15/2018 12:58 PM Elevated Creatinin e Results for this EGFR CDT procedure are i n the results section. documented in this encounter Results Cystatin C with Estimated GFR (04/15/2018 12:58 PM CDT) athologist Signature eGFR by 79 >60 04/15/2018 [facility] Cystatin C mL/min/BSA 4:24 PM CDT [facility] Comment: ----ADDITIONAL INFORMATION---- Cystatin C-based eGFR may differ substan tially from creatinine-based eGFR in patients with a bnormal muscle mass or acutely changing renal function. ??Pl ease interpret together with relevant clinical features. Cystatin C, S 0.91 0.68 - 1.36 mg/L 04/15/2018 4:24 PM CDT [facility] PUS Specimen Anatomical Collection Method Collection Time Receive d Time (Source) Location / / Volume Laterality Blood (Blood, 04/15/2018 12:58 04/15/2018 1:53 Venous) PM CDT PM CDT Ángel Sidhu M.D. LAB BLOOD ADD-ON Performing Organization Address City/State/ZIP Code Phon e Number [facility] - 200 [place], [place] [address] [facility] documented in this encounter Visit Diagnoses Diagnosis Elevated Creatinine documented in this encounter Care Teams Cleaning Validation Consultant Relationship Specialty Start Date End Date Elsewhere, Pcp PCP - General Internal Medicine 07/03/17 documented as of this encounter
--- OUTSIDE RECORDS SUMMARY | 2022-07-30 20:39 | XMS_ITS | Encounter Summary ---
:1945 Author Organization [facility] Address [address] [place] [address] Care Team Providers Name Role Phone Elsewhere, Pcp Primary Care Provider Unavailable Encounter Details Date Type Department Care Team Description 04/15/2018 Hospital Encounter Department of [facility] Lei myoma (Fibroid) Radiology, Kaleigh Pichardo, [facility] in [facility], [address] [place], [place] [address] [facility] [address] [place], [place] [phone] (Work) [phone] Social History Tobacco Use Types Packs/Day Years [...] or relatives? How often do you attend uatsdin or More than 4 times per year 01/28/2021 mandaen services? Do you belong to any clubs or Yes 01/28/2021 organizations such as uatsdin groups, unions, fraternal or athletic groups, or [...] 08/2 10/201411/30/2018 rb115 mouth 2 (two) times ([id number]-MEGA a day. -115HC ORAL) hydrocortisone Insert 1 [...] visit Aesthetic Medicine and Juanita Vaz, Surgery COUPON AND BOND COLLECTION CLERK, C.N.P. [address] [place] [address] (Wo rk) 09/08/2022 Comprehensive Visit Aesthetic Medicine and [place], Lucero Decker, Surgery Francesca, Ph.D. [address] [place] [phone] (Wo rk) documented as of this encounter [...] Uterus documented in this encounter Care Teams Zigzag Machine Operator Relationship Specialty Start Date End Date Elsewhere, Pcp PCP - General Internal Medicine 07/03/17 documented as of this encounter
--- OUTSIDE RECORDS SUMMARY | 2022-07-30 20:39 | XMS_ITS | Encounter Summary ---
:1945 Author Organization [facility] Address [address] [place] [address] Care Team Providers Name Role Phone Elsewhere, Pcp Primary Care Provider Unavailable Reason for Visit Reason Comments Urinary Frequency Patient presents complaining of urinary frequency for about an hour and a half. Denies other sym ptoms or hematuria. Encounter Details Date Type Department Care Team Description 07/03/2017 [facility] Jose E Willingham, I nfection Urinary Tract Department M.D. (Primary Dx) [address] [facility] [address] [facility] [facility], [place], [place] [address] [phone] Social History Tobacco Use Types Packs/Day Years [...] through Care Everywhere. Urinary Tract Infection, Adult (Grenadian)documented in this encounter Medications at Time of [...] 0 05/0511/30/2018 rb115 mouth 2 (two) times ([id number]-[id number]-ASHLYN a day. -115HC ORAL) hydrocortisone Insert 1 [...] of this encounter ED Notes Jose E Willingham M.D. - 07/03/2017 7:39 AM CDT SUBJECTIVE CHIEF COMPLAINT/REASON FOR VISIT Urinary Frequency (Patient presents complaining of urinary frequency for about an hour and a half. Denies other symptoms or hematuria. 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 [address] [place] [phone] ([place] bentley) 09/08/2022 Comprehensive Visit Aesthetic Medicine and Lucero Pritchard, Surgery MJayda, Ph.D. [address] [place] [phone] (Charlotte bentley) documented as of this encounter Visit Diagnoses Diagnosis Infection Urinary Tract - Primary documented in this encounter Care Teams Insurance Loss Assessor Relationship Specialty Start Date End Date Elsewhere, Pcp PCP - General Internal Medicine 07/03/17 documented as of this encounter
--- OUTSIDE RECORDS SUMMARY | 2022-07-30 20:39 | XMS_ITS | Encounter Summary ---
:1945 Author Organization [facility] Address [address] [place] [address] Care Team Providers Name Role Phone Elsewhere, Pcp Primary Care Provider Unavailable Reason for Visit Reason Comments Patient Education Encounter Details Date Type Department Care Team Description 04/15/2018 Education Department of Patient Ángel Sidhu M.D. Elevated Creatinine Education in [facility] Leeann Conteh [address] [place] [address] [place] [address] [place] [phone] Social History Tobacco Use Types Packs/Day [...] visit Aesthetic Medicine and Juanita Vaz, Surgery HOT SAW OPERATOR, C.N.P. [address] [place] [phone] (Wo rk) 09/08/2022 Comprehensive Visit Aesthetic Medicine and Lucero Pritchard, Surgery M.DAnali, Ph.D. [address] [place] [phone] (Wo rk) documented as of this encounter Visit Diagnoses Diagnosis Elevated Creatinine documented in this encounter Care Teams Physician Relations Specialist Relationship Specialty Start Date End Date Elsewhere, Pcp PCP - General Internal Medicine 07/03/17 documented as of this encounter
== END 2022-07-30 20:30 | disposition home or self-care (01) ==
PROVIDERS: Emergency Provider Emergency Medicine Emergency Medical Services
DX: S93.402A Sprain of unspecified ligament of left ankle, initial encounter (principal); W01.0XXA Fall on same level from slipping, tripping and stumbling without subsequent striking against object, initial encounter; S80.02XA Contusion of left knee, initial encounter
CPT/HCPCS: 73562; 73610; 99283; 99284

== ENCOUNTER 2025-01-16 12:30 | Outpatient (RCR) | payer MEDICARE, SELFPAY | END 2025-01-16 13:27 | disposition home or self-care (01) | PROVIDERS: Visit Provider Orthopaedic Surgery Hand Surgery | DX: M19.041 Primary osteoarthritis, right hand (principal); M19.042 Primary osteoarthritis, left hand; Z74.1 Need for assistance with personal care; Z51.89 Encounter for other specified aftercare | CPT/HCPCS: 97035; 97110; 97140; 97165; 97535; L3806; X5282 ==

== ENCOUNTER 2025-08-28 14:45 | Outpatient (CLI) | payer MEDICARE, SELFPAY ==
[2025-08-28 16:13] LABS: Appearance Urine Clear (Clear)
== END 2025-08-28 14:46 | disposition home or self-care (01) ==
LOC: NPINS 09-06 11:36
PROVIDERS: Urology; Visit Provider Physician Assistant
DX: R39.89 Other symptoms and signs involving the genitourinary system (principal)
CPT/HCPCS: 81003; 81015; 87086